=== PATIENT | male | born 1930 | race Caucasian/White ===

== ENCOUNTER 2018-03-31 15:50 | Observation (INO) | payer MEDICARE ==
[~2018-03-31] VITALS: Ht 170.2 cm; Wt 95.3 kg
--- OUTSIDE RECORDS SUMMARY | 2018-03-31 15:57 | XMS REPORT ---
Author Author [facility] Medical Staff Organization [facility] [employer] [facility] Address [address] [place], [place] [address] Phone [phone] Summary purpose TRANSITION OF CARE AUTO GENERATION Chief Complaint and Reason for Visit No authorized Reason for Visit (Admitting Diagnosis) is available for this visit. Problem list No authorized problems tracked for continuity of care are available for this visit. Encounters No authorized problems tracked for encounter diagnoses are available for this visit. Medications No medications recorded for this patient visit Allergies, adverse reactions, alerts No allergy information is available for this patient. Immunizations No immunizations recorded for this patient visit Relevant diagnostic tests and/or laboratory data RESULTS Radiology Results [id number] LUNG PERFUSION SCAN PACs Image DATE OF EXAM: 2015 [id number] PERFUSION SCAN : RADIOLOGY REPORT DATE OF SERVICE: 02/27/16 HISTORY:Elevated D-dimer; rule out pulmonary embolus, edema, shortness of breath times 1 month. NUCLEAR MEDICINE LUNG PERFUSION SCAN 1110 HOURS Utilizing 7.0 mCi of technetium 99m macro aggregated albumin, a radionuclide perfusion study was performed. Multiple images were obtained in multiple projections. No focal peripheral wedge-shaped defect or focal photopenia can be identified. No evidence of pulmonary embolus can be seen on this perfusion study. Ventilation was not performed. IMPRESSION: 1. Normal radionuclide perfusion study. 2. No evidence of pulmonary embolus. Nikhil Mckay DO WP/cdj02/27/2016 12:17:00 / 02/27/2016 12:37:55 cc:Daja Tatum APRN This document has been electronically Signed by: On: DATE OF EXAM: 2015 [id number] PERFUSION SCAN : RADIOLOGY REPORT DATE OF SERVICE: 02/27/16 HISTORY:Elevated D-dimer; rule out pulmonary embolus, edema, shortness of breath times 1 month. NUCLEAR MEDICINE LUNG PERFUSION SCAN 1110 HOURS Utilizing 7.0 mCi of technetium 99m macro aggregated albumin, a radionuclide perfusion study was performed. Multiple images were obtained in multiple projections. No focal peripheral wedge-shaped defect or focal photopenia can be identified. No evidence of pulmonary embolus can be seen on this perfusion study. Ventilation was not performed. IMPRESSION: 1. Normal radionuclide perfusion study. 2. No evidence of pulmonary embolus. Nikhil Mckay DO WP/cdj02/27/2016 12:17:00 / 02/27/2016 12:37:55 cc:Daja Tatum APRN This document has been electronically Signed by: NIKHIL MCKAY DO On: 20152:33P Result Amended on 2016-02-27 at 14:33:52. Previous status was [place]. History of procedures No procedures recorded for this patient visit. Functional status No functional or cognitive status observations are available for this visit. Vital signs No authorized vital signs are available for this visit. Social history No Social History or smoking status observations were recorded for this visit. ( Unknown if ever smoked.) Treatment Plan No treatment plan text is available for this visit. Hospital discharge instructions No discharge instruction text is available for this visit.
--- OUTSIDE RECORDS SUMMARY | 2018-03-31 15:57 | XMS REPORT ---
Author Author [facility] Organization [facility] Address [address] [place] [id number] Phone [phone] Summary purpose TRANSITION OF CARE AUTO GENERATION [...] Relevant diagnostic tests and/or laboratory data RESULTS Reference Lab ([facility]) [id number] Result Normal Range Units D-Dimer H@ 1240 0-400 ng/ml History of procedures No procedures recorded for [...]
--- OUTSIDE RECORDS SUMMARY | 2018-03-31 15:57 | XMS REPORT ---
Author Author [facility] [employer] [facility] Medical Staff Organization [facility] [employer] [facility] Address [address] [place], [place] [address] Phone [phone] Care Team Providers Care Aviation Electronic Warfare Operator Name Role Phone DEACON IRENE MD PP [phone] Summary purpose TRANSITION OF CARE AUTO GENERATION [...] tests and/or laboratory data RESULTS Radiology Results [id number] Elbow XRay - 3 View PACs Image DATE OF EXAM: Nov 14 2015 RAD [id number]-ELBOW XRAY-3 VIEW- LEFT: RADIOLOGY REPORT DATE OF SERVICE: 11/14/15 HISTORY: Left elbow nodule. LEFT ELBOW 3 VIEWS 1400 HOURS There is minimal calcification at the triceps tendon insertion. Minimal spurring is present at the cornoid process of the proximal ulna. There are some minimal intra-articular or paraarticular calcifications at the radial-humeral joint. 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 Scott Fink MD Delfina/pa11/14/2015 14:02:00 / 11/14/2015 14:47:27 cc:Dr. Rodriguez [facility] This document has been electronically Signed by: On: DATE OF EXAM: Nov 14 2015 RAD 0458-ELBOW XRAY-3 VIEW- LEFT: RADIOLOGY REPORT DATE OF SERVICE: 11/14/15 HISTORY: Left elbow nodule. LEFT ELBOW 3 VIEWS 1400 HOURS There is minimal calcification at the triceps tendon insertion. Minimal spurring is present at the cornoid process of the proximal ulna. There are some minimal intra-articular or paraarticular calcifications at the radial-humeral joint. 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 Scott Fink MD MWD/nh11/14/2015 14:02:00 / 11/14/2015 14:47:27 cc:Dr. Rodriguez [facility] This document has been electronically Signed by: SCOTT FINK MD On: Nov 14 20154:14P Result Amended on 2015-11-14 at 16:14:14. Previous status was [place]. History of procedures No procedures recorded for [...]
--- OUTSIDE RECORDS SUMMARY | 2018-03-31 15:57 | XMS REPORT ---
Author Author [facility] Medical Staff Organization [facility] Address [address] [place] [id number] Phone [phone] Summary purpose TRANSITION OF CARE AUTO GENERATION [...] and/or laboratory data RESULTS Reference Lab ([facility]out) [id number] Result Normal Range Units D-Dimer H@ 1240 0-400 ng/ml History of procedures Procedure Code Code Type Description Date Performed Performing Physician 69524 CPT-4 FIBRIN DEGRADATION, QUANT 02-26-2016 LAURYN VILLANUEVA Functional status No functional or cognitive status [...]
--- OUTSIDE RECORDS SUMMARY | 2018-03-31 15:57 | XMS REPORT ---
Author Author [facility] [employer] [facility] Medical Staff Organization [facility] [employer] [facility] Address [address] [place], [place] [address] Phone [phone] Care Team Providers Care Chemical Detection Expert Name Role Phone DEACON IRENE MD PP [phone] Summary purpose TRANSITION OF CARE AUTO GENERATION [...] tests and/or laboratory data RESULTS Radiology Results [id number] Elbow XRay - 3 View PACs Image [...] and some degenerative spurring. Scott Fink MD Delfina/md11/14/2015 14:02:00 / 11/14/2015 14:47:27 cc:Dr. Rodriguez [facility] This document has been electronically Signed [...] MD MWD/nh11/14/2015 14:02:00 / 11/14/2015 14:47:27 cc:Dr. Jr Mccabe This document has been electronically Signed by: SCOTT FINK MD On: Nov 14 20154:14P Result Amended on 2015-11-14 at 16:14:14. Previous status was [place]. History of procedures Procedure Code Code Type Description Date Performed Performing Physician 09569 CPT-4 X-RAY EXAM OF ELBOW 11-14-2015 JR BRICEÑO Functional status No functional or cognitive status [...]
--- OUTSIDE RECORDS SUMMARY | 2018-03-31 15:57 | XMS REPORT ---
Author Author Akil Martinez Organization [facility] Address [address] [place], [place] [address] Care Team Providers Care Legal Support Analyst Name Role Phone Akil Martinez PCP Unavailable Allergies and Adverse Reactions Name Reaction Notes NO KNOWN DRUG ALLERGIES Plan of Treatment Planned Activity Comments Planned Date Planned Time Plan/Goal COMPLETE CBC AUTOMATED 05/11/2014 12:00 AM METABOLIC PANEL TOTAL CA 05/11/2014 12:00 AM Medications Active Name Start Date Estimated Completion Date SIG Comments carvedilol 6.25 mg oral tablet glimepiride 1 mg oral tablet prednisone 5 mg oral tablet aspirin 325 mg oral tablet tramadol 50 mg oral tablet lutein 20 mg oral tablet Fish Oil oral Name Start Date Expiration Date SIG Comments Cipro 250 mg oral tablet 10/10/2014 10/17/2014 take 1 tablet by oral route 2 times a day for 7 days Problem List Description Status Onset UTI (urinary tract infection) Active 10/10/2014 Urinary frequency Active 10/10/2014 Slowing of Urinary Stream Active 10/10/2014 Benign Hypertrophy of Prostate (BPH) Active 10/10/2014 Idiopathic urethral stricture Active 10/10/2014 Prostate nodule Active 10/10/2014 Vital Signs Date Time BP-Sys(mm[Hg] BP-Andreea(mm[Hg]) HR(bpm) RR(rpm) Temp WT HT HC BMI BSA BMI Percentile O2 Sat(%) 11/28/2014 10:34:00 AM 200 lbs 68 in 30.41 kg/m2 2.09 m2 10/10/2014 12:53:00 PM 200 lbs 68 in 30.4096 kg/m 2.0863 m Social History Name Description Comments Alcohol Former Tobacco Former smoker History of Procedures Date Ordered Description Order Status 05/11/2014 12:00 AM ASSAY OF PSA TOTAL Reviewed 10/10/2014 12:00 AM URINE BACTERIA CULTURE Reviewed 10/10/2014 3:12 PM URINALYSIS AUTO W/SCOPE Reviewed 10/10/2014 3:12 PM URINALYSIS AUTO W/O SCOPE Reviewed 10/10/2014 3:12 PM URINALYSIS AUTO W/O SCOPE Reviewed 11/28/2014 2:47 PM URINALYSIS AUTO W/O SCOPE Reviewed Results Summary Data and Description Results 10/10/2014 3:12 PM Bilirub Ur Ql Strip -VE Glucose Ur-sCnc -VE Hgb Ur Ql Strip -VE Ketones Ur Ql Strip -VE Nitrite Ur Ql Strip -VE pH Ur-LsCnc 6.0 Prot Ur Ql Strip TRACE -1+ Sp Gr Ur Qn 1015 Urobilinogen Ur-mCnc -VE WBC Est Ur Ql Strip + + 10/24/2014 12:34 PM PSA TOTAL 1.510 ng/mL 11/28/2014 2:47 PM Bilirub Ur Ql Strip -VE Glucose Ur-sCnc -VE Hgb Ur Ql Strip - VE Ketones Ur Ql Strip -VE Nitrite Ur Ql Strip -VE pH Ur-LsCnc 6.5 Prot Ur Ql Strip -VE Sp Gr Ur Qn 1015 Urobilinogen Ur-mCnc -VE WBC Est Ur Ql Strip TRACE. History Of Immunizations Not available. History of Past Illness Name Date of Onset Comments UTI (urinary tract infection) 10/10/2014 Urinary frequency 10/10/2014 Slowing of Urinary Stream 10/10/2014 Benign Hypertrophy of Prostate (BPH) 10/10/2014 Idiopathic urethral stricture 10/10/2014 Prostate nodule 10/10/2014 Benign hypertrophy of prostate May 11 2014 11:34AM UTI (urinary tract infection) Oct 10 2014 1:43PM Recurrent Urinary Tract Infection Oct 10 2014 12:55PM Urinary Frequency Oct 10 2014 12:55PM Moderate Slowing of Urinary Stream Oct 10 2014 12:55PM Moderate Benign Hypertrophy of Prostate (BPH) Oct 10 2014 12:55PM Chronic Idiopathic urethral stricture Oct 10 2014 12:55PM Left Prostate nodule Oct 10 2014 12:55PM Resolved Urinary Frequency Oct 24 2014 2:06PM Benign Hypertrophy of Prostate (BPH) Oct 24 2014 2:06PM Benign Hypertrophy of Prostate (BPH) Nov 28 2014 10:35AM Resolved Chronic urinary tract infection Nov 28 2014 10:35AM Chronic urethral stricture Nov 28 2014 10:35AM Payers Insurance Name Company Name Plan Name Plan Number Policy Number Policy Group Number Start Date Medicare Part B Medicare [facility] [id number] N/A [id number] N/A History of Encounters Visit Date Visit Type Provider 11/28/2014 Office visit V Herman Martinez MD 10/24/2014 Office visit V Herman Martinez MD 10/10/2014 Office visit Akil Martinez MD
--- OUTSIDE RECORDS SUMMARY | 2018-03-31 15:58 | XMS REPORT ---
Author Author Tiago Burroughs [facility] Address [address] [place] [id number] Care Team Providers Care Tube Roller Name Role Phone Tiago Burroughs PCP Allergies and Adverse Reactions Name Reaction Notes NO KNOWN DRUG ALLERGIES Plan of Treatment Planned Activity Comments Planned Date Planned Time Plan/Goal CBC 05/11/2014 12:00 AM BMP 05/11/2014 12:00 AM Medications Active Name Start Date Estimated Completion Date SIG Comments carvedilol 6.25 mg oral tablet glimepiride 1 mg oral tablet prednisone 5 mg oral tablet tramadol 50 mg oral tablet lutein 20 mg oral tablet Fish Oil oral Flomax 0.4 mg oral capsule,extended release 24hr 01/19/2018 07/18/2018 take 1 capsule (0.4 mg) by oral route once daily 1/2 hour following the same meal each day for 30 days Name Start Date Expiration Date SIG Comments Cipro 250 mg oral tablet 10/10/2014 10/17/2014 take 1 tablet by oral route 2 times a day for 7 days Cipro 500 mg oral tablet 01/05/2018 01/12/2018 take 1 tablet (500 mg) by oral route every 12 hours for 7 days Discontinued Name Start Date Discontinued Date SIG Comments aspirin 325 mg oral tablet 01/05/2018 Problem List Description Status Onset UTI (urinary tract infection) Active 10/10/2014 Urinary frequency Active 10/10/2014 Slowing of Urinary Stream Active 10/10/2014 Benign Hypertrophy of Prostate (BPH) Active 10/10/2014 Idiopathic urethral stricture Active 10/10/2014 Prostate nodule Active 10/10/2014 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 Glucosuria Active 03/07/2016 Stricture of urethra Active 09/26/2016 Incontinence of urine Active 09/26/2016 Urgency of micturition Active 09/26/2016 Vital Signs Date Time BP-Sys(mm[Hg] BP-Andreea(mm[Hg]) HR(bpm) RR(rpm) Temp WT HT HC BMI BSA BMI Percentile O2 Sat(%) 01/19/2018 11:00:00 AM 138 mmHg 68 mmHg 91 bpm 20 rpm 97.9 F 67 in 96 % 01/05/2018 4:02:00 PM 130 mmHg 82 mmHg 65 bpm 16 rpm 97.7 F 220.25 lbs 67 in 34.4957 kg/m 2.1732 m 97 % 09/26/2016 9:27:00 AM 208 lbs 68 in 31.63 kg/m2 2.13 m2 03/07/2016 11:33:00 AM 216 lbs 68 in 32.8424 kg/m 2.1681 m 11/28/2014 10:34:00 AM 200 lbs 68 in 30.41 kg/m2 2.09 m2 10/10/2014 12:53:00 PM 200 lbs 68 in 30.4096 kg/m 2.0863 m Social History Name Description Comments Alcohol Former Tobacco Former smoker History of Procedures Date Ordered Description Order Status 03/07/2016 12:00 AM ASSAY OF PSA TOTAL Reviewed 03/07/2016 4:53 PM URINALYSIS AUTO W/O SCOPE Reviewed 09/26/2016 12:00 AM ASSAY OF PSA TOTAL Reviewed 09/26/2016 1:25 PM URINALYSIS AUTO W/O SCOPE Reviewed 01/19/2018 11:09 AM US URINE CAPACITY MEASURE Reviewed 01/19/2018 12:00 AM URINALYSIS AUTO W/SCOPE Returned 05/11/2014 12:00 AM ASSAY OF PSA TOTAL Reviewed 10/10/2014 12:00 AM URINE BACTERIA CULTURE Reviewed 10/10/2014 3:12 PM URINALYSIS AUTO W/SCOPE Reviewed 10/10/2014 3:12 PM URINALYSIS AUTO W/O SCOPE Reviewed 10/10/2014 3:12 PM URINALYSIS AUTO W/O SCOPE Reviewed 11/28/2014 2:47 PM URINALYSIS AUTO W/O SCOPE Reviewed Results Summary Date and Description Results 10/10/2014 3:12 PM Bilirub [...] -VE WBC Est Ur Ql Strip TRACE. 03/07/2016 1:10 PM PSA TOTAL 0.750 ng/mL 03/07/2016 4:53 PM Clarity Ur CLEAR Color Ur Glucose Ur-sCnc +++ + Bilirub Ur Ql Strip -VE Ketones Ur Ql Strip -VE Sp Gr Ur Qn 1015 Hgb Ur Ql Strip -VE pH Ur-LsCnc 6.0 Prot Ur Ql Strip -VE Urobilinogen Ur-mCnc -VE Nitrite Ur Ql Strip -VE WBC Est Ur Ql Strip -VE 09/26/2016 10:40 AM PSA TOTAL 0.650 ng/mL 09/26/2016 1:25 PM Clarity Ur CLEAR Color Ur ---- Glucose Ur-sCnc -VE Bilirub Ur Ql Strip -VE Ketones Ur Ql Strip -VE Sp Gr Ur Qn 1015 Hgb Ur Ql Strip -VE pH Ur-LsCnc 6.0 Prot Ur Ql Strip + Urobilinogen Ur-mCnc -VE Nitrite Ur Ql Strip - VE WBC Est Ur Ql Strip -VE 01/19/2018 11:09 AM Residual Urine 107.0 mL History Of Immunizations Not available. History of Past Illness Name Date of Onset Comments UTI (urinary tract infection) 10/10/2014 Urinary frequency 10/10/2014 Slowing of Urinary Stream 10/10/2014 Benign Hypertrophy of Prostate (BPH) 10/10/2014 Idiopathic urethral stricture 10/10/2014 Prostate nodule 10/10/2014 Adenofibromatous hypertrophy of prostate 03/07/2016 Acquired bladder neck obstruction 03/07/2016 Post-traumatic bulbous urethral stricture 03/07/2016 Glucosuria 03/07/2016 Stricture of urethra 09/26/2016 Incontinence of urine 09/26/2016 Urgency of micturition 09/26/2016 Benign hypertrophy of prostate May 11 2014 [...] Chronic urethral stricture Nov 28 2014 10:35AM BPH (benign prostatic hypertrophy) Mar 07 2016 12:02PM Prostate nodule Mar 07 2016 12:02PM Urinary frequency Mar 07 2016 12:02PM Adenofibromatous hypertrophy of prostate Mar 07 2016 11:34AM Acquired bladder neck obstruction Mar 07 2016 11:34AM Post-traumatic bulbous urethral stricture Mar 07 2016 11:34AM Glucosuria Mar 07 2016 11:34AM Prostatic nodule Sep 26 2016 9:50AM BPH (benign prostatic hypertrophy) Sep 26 2016 9:50AM Screening for prostate cancer Sep 26 2016 9:50AM Urgency of micturition Sep 26 2016 9:27AM Incontinence of urine Sep 26 2016 9:27AM Stricture of urethra Sep 26 2016 9:27AM Adenofibromatous hypertrophy of prostate Sep 26 2016 9:27AM UTI (urinary tract infection) Jan 05 2018 4:04PM Urinary Frequency Jan 19 2018 11:09AM Urinary Incontinence Jan 19 2018 11:09AM Stricture of urethra Jan 19 2018 11:09AM Payers Insurance Name Company Name Plan Name Plan Number Policy Number Policy Group Number Start Date Medicare Part B Medicare Of [place] [id number] N/A [facility] [id number] N/A History of Encounters Visit Date Visit Type Provider 01/19/2018 Procedures Tiago Burroughs MD 01/05/2018 Office visit Tiago Burroughs MD 09/26/2016 Office visit V Herman Martinez MD 03/07/2016 Office visit Akil Martinez MD 11/28/2014 Office visit V Herman Martinez MD 10/24/2014 Office visit V Herman Martinez MD 10/10/2014 Office visit V Cesar. Juan MD
--- OUTSIDE RECORDS SUMMARY | 2018-03-31 15:58 | XMS REPORT ---
Author Author Akil Martinez [facility] Address [address] [place], [place] [id number] Care Team Providers Care Cardiac/Vascular Sonographer Name Role Phone Akil Martinez PCP Unavailable Allergies and Adverse Reactions Name Reaction Notes NO KNOWN DRUG ALLERGIES Plan of Treatment Planned Activity Comments Planned Date Planned Time Plan/Goal PSA TOTAL 09/26/2016 12:00 AM CBC 05/11/2014 12:00 AM BMP 05/11/2014 12:00 [...] urethral stricture Active 03/07/2016 Glucosuria Active 03/07/2016 Vital Signs Date Time BP-Sys(mm[Hg] BP-Andreea(mm[Hg]) HR(bpm) RR(rpm) Temp WT HT HC BMI BSA BMI Percentile O2 Sat(%) 09/26/2016 9:27:00 AM 208 lbs 68 in 31.63 kg/m2 2.13 m2 03/07/2016 11:33:00 AM 216 lbs 68 in 32.8424 kg/m 2.1681 m 11/28/2014 10:34:00 AM 200 lbs 68 in 30.41 kg/m2 2.09 m2 10/10/2014 12:53:00 PM 200 lbs 68 in 30.41 kg/m2 2.0863 m Social History Name Description Comments Alcohol Former Tobacco Former smoker History of Procedures Date Ordered Description Order Status 03/07/2016 12:00 AM ASSAY OF PSA TOTAL Reviewed 03/07/2016 4:53 PM URINALYSIS AUTO W/O SCOPE Reviewed 05/11/2014 12:00 AM ASSAY OF PSA TOTAL [...] -VE WBC Est Ur Ql Strip -VE History Of Immunizations Not available. History of Past Illness Name Date of Onset Comments UTI (urinary tract infection) 10/10/2014 Urinary frequency 10/10/2014 Slowing of Urinary Stream 10/10/2014 Benign Hypertrophy of Prostate (BPH) 10/10/2014 Idiopathic urethral stricture 10/10/2014 Prostate nodule 10/10/2014 Adenofibromatous hypertrophy of prostate 03/07/2016 Acquired bladder neck obstruction 03/07/2016 Post-traumatic bulbous urethral stricture 03/07/2016 Glucosuria 03/07/2016 Benign hypertrophy of prostate May 11 2014 [...] for prostate cancer Sep 26 2016 9:50AM Payers Insurance Name Company Name Plan Name Plan Number Policy Number Policy Group Number Start Date Medicare Part B Medicare [facility] [id number] N/A BCBS [employer] [id number] N/A History of Encounters Visit Date Visit Type Provider 09/26/2016 Office visit V Herman Martinez MD 03/07/2016 Office visit Akil Martinez MD 11/28/2014 Office visit V Herman Martinez MD 10/24/2014 Office visit Akil Martinez MD 10/10/2014 Office visit Akil Martinez MD
--- OUTSIDE RECORDS SUMMARY | 2018-03-31 15:58 | XMS REPORT ---
Author Author Tiago Burroughs [facility] Address [address] [place] [id number] Care Team Providers Care Vascular Surgeon Name Role Phone Tiago Burroughs PCP Allergies [...] 20 mg oral tablet Fish Oil oral Cipro 500 mg oral tablet 01/05/2018 01/12/2018 take 1 tablet (500 mg) by oral route every 12 hours for 7 days Name Start Date Expiration Date SIG Comments Cipro 250 mg oral tablet 10/10/2014 10/17/2014 take 1 tablet by oral route 2 times a day for 7 days Discontinued Name Start Date [...] HC BMI BSA BMI Percentile O2 Sat(%) 01/05/2018 4:02:00 PM 130 mmHg 82 mmHg [...] 1:25 PM URINALYSIS AUTO W/O SCOPE Reviewed 05/11/2014 [...] VE WBC Est Ur Ql Strip -VE History [...] (urinary tract infection) Jan 05 2018 4:04PM Payers Insurance Name Company Name Plan Name Plan Number Policy Number Policy Group Number Start Date Medicare Part B Medicare Of [place] [id number] N/A [facility] [id number] N/A History of Encounters Visit Date Visit Type Provider 01/05/2018 Office visit Tiago Burroughs MD 09/26/2016 Office visit Akil Martinez MD 03/07/2016 Office visit Akil Martinez MD 11/28/2014 Office visit Akil Martinez MD 10/24/2014 Office visit Akil Martinez MD 10/10/2014 Office visit Akil Martinez MD
--- OUTSIDE RECORDS SUMMARY | 2018-03-31 15:58 | XMS REPORT ---
Author Author Akil Martinez Organization [facility] Address [address] [place], [place] [id number] Care Team Providers Care Garment Manufacturing Supervisor Name Role Phone Akil Martinez PCP Unavailable Allergies and Adverse Reactions Name Reaction Notes NO KNOWN DRUG ALLERGIES Plan of Treatment Planned Activity Comments Planned Date Planned Time Plan/Goal ASSAY OF PSA TOTAL 03/07/2016 12:00 AM COMPLETE CBC AUTOMATED 05/11/2014 12:00 AM METABOLIC [...] HC BMI BSA BMI Percentile O2 Sat(%) 03/07/2016 11:33:00 AM 216 lbs 68 in 32.84 kg/m2 2.17 m2 11/28/2014 10:34:00 AM 200 lbs 68 in 30.4096 kg/m 2.0863 m 10/10/2014 12:53:00 PM 200 lbs 68 in 30.41 kg/m2 2.09 m2 Social History Name Description Comments Alcohol Former Tobacco Former smoker History of Procedures Date Ordered Description Order Status 03/07/2016 4:53 PM URINALYSIS AUTO W/O SCOPE [...] WBC Est Ur Ql Strip TRACE. 03/07/2016 4:53 PM Clarity Ur CLEAR Color [...] 2016 11:34AM Glucosuria Mar 07 2016 11:34AM Payers Insurance Name Company Name Plan Name Plan Number Policy Number Policy Group Number Start Date Medicare Part B Medicare Of [place] [id number] N/A BCBS [facility] [id number] N/A History of Encounters Visit Date Visit Type Provider 03/07/2016 Office visit V Herman Martinez MD 11/28/2014 Office visit V Herman Martinez MD 10/24/2014 Office visit V Herman Martinez MD 10/10/2014 Office visit V Herman Martinez MD
--- OUTSIDE RECORDS SUMMARY | 2018-03-31 15:59 | XMS REPORT ---
Author Author SOREN GOSS [facility] eClinicalWorks Address Unknown Phone Unavailable Care Team Providers Care Still Operator Whiskey Name Role Phone SOREN GOSS CP Unavailable Allergies, Adverse Reactions, Alerts Substance Reaction Event Type Sulfacetamide Sodium Info Not Available Drug Allergy Problems Problem Type Condition Code Onset Dates Condition Status Assessment Dental examination Z01.20 Active Problem Dental examination V72.2 Active Medications Medication Code System Code Instructions Start Date End Date Status Dosage Tramadol HCl [facility] [place] [address]-61 50 MG Orally 1 tablet as needed Lisinopril [facility] [place] [address]-15 10 MG Orally Once a day 1 tablet Prednisone [facility] [place] 0 5 MG Oral Every Other Day 1 Tablet Aspirin [facility] [place] [address]-84 325 mg April 06, 2014 take 1 tablet (325 mg) by oral route once daily Carvedilol [facility] [place] [address]-83 6.25 MG Orally 2 Tablets Glimepiride [facility] [place] [address]-11 1 MG Orally Once a day not defined Procedures Procedure Coding System Code Date Dental no charge CPT-4 D0099 Jun 19, 2016 Results No Known Results Summary Purpose eClinicalWorks Submission
--- OUTSIDE RECORDS SUMMARY | 2018-03-31 15:59 | XMS REPORT ---
Author Author Akil Martinez Organization [facility] Address [address] [place], [place] [id number] Care Team Providers Care Resource Teacher Name Role Phone Akil Martinez PCP Unavailable [...] PM URINALYSIS AUTO W/O SCOPE Reviewed 09/26/2016 1:25 PM URINALYSIS AUTO W/O [...] WBC Est Ur Ql Strip -VE 09/26/2016 1:25 PM Clarity Ur CLEAR Color [...] hypertrophy of prostate Sep 26 2016 9:27AM Payers Insurance Name Company Name Plan Name Plan Number Policy Number Policy Group Number Start Date Medicare Part B Medicare [place] [id number] N/A [facility] [id number] N/A History of Encounters Visit Date Visit Type Provider 09/26/2016 Office visit V Herman Martinez MD 03/07/2016 Office visit V Herman Martinez MD 11/28/2014 Office visit V Herman Martinez MD 10/24/2014 Office visit V Herman Martinez MD 10/10/2014 Office visit V Herman Martinez MD
--- OUTSIDE RECORDS SUMMARY | 2018-03-31 15:59 | XMS REPORT ---
Author Author [facility]CHARIAH BALDERAS [facility] [place] Address [address] [place] [address] Care Team Providers Care Superintendent Meter Tests Name Role Phone ZECHARIAH BALDERAS Unavailable PROBLEMS Type Condition ICD9-CM Code [id number] Code Onset Dates Condition Status SNOMED Code Problem Dental examination V72.2 Active [id number] ALLERGIES No Known Allergies SOCIAL HISTORY No smoking Hx information available PLAN OF CARE VITAL SIGNS MEDICATIONS No Known Medications RESULTS No Results PROCEDURES No Known procedures IMMUNIZATIONS No Known Immunizations
--- OUTSIDE RECORDS SUMMARY | 2018-03-31 15:59 | XMS REPORT ---
Author Author SOREN GOSS [facility] eClinicalWorks Address Unknown Phone Unavailable Care Team Providers Care Wildlife Officer Name Role Phone SROEN GOSS CP Unavailable Allergies, Adverse Reactions, Alerts Substance Reaction Event Type N.K.D.A. Info Not Available Non Drug Allergy Problems Problem Type Condition Code Onset Dates Condition Status Assessment Dental examination Z01.20 Active Problem Dental examination V72.2 Active Medications No Known Medications Procedures Procedure Coding System Code Date Dental no charge CPT-4 D0099 Sep 07, 2015 Vital Signs Date/Time: Sep 07, 2015 Blood Pressure Diastolic 88 mmHg Blood Pressure Systolic 147 mmHg Results No Known Results Summary Purpose eClinicalWorks Submission
--- OUTSIDE RECORDS SUMMARY | 2018-03-31 15:59 | XMS REPORT ---
Author Author SOREN GOSS [facility] eClinicalWorks Address Unknown Phone Unavailable Care Team Providers Care Hydroelectric Operator Name Role Phone SOREN GOSS CP Unavailable Allergies, Adverse Reactions, Alerts Substance Reaction Event Type N.K.D.A. Info Not Available Non Drug Allergy Problems Problem Type Condition Code Onset Dates Condition Status Assessment Dental examination Z01.20 Active Problem Dental examination V72.2 Active Medications Medication Code System Code Instructions Start Date End Date Status Dosage Lisinopril [facility] [address]-27 10 MG Orally Once a day 1 tablet Glimepiride [facility] [address]-01 1 MG Orally Once a day not defined Tramadol HCl [facility] [address]-76 50 MG Orally 1 tablet as needed Prednisone NDC 0 5 MG Oral Every Other Day 1 Tablet Carvedilol [facility] [address]-21 6.25 MG Orally 2 Tablets Procedures Procedure Coding System Code Date INTRAORL-PERIAPICAL 1 FILM [id number] CPT-4 D0220 Jul 13, 2015 RESIN COMPOS - 1 SURFACE POSTERIOR CPT-4 D2391 Jul 13, 2015 LTD ORAL EVALUATION - PROBLEM FOCUS CPT-4 D0140 Jul 13, 2015 Vital Signs Date/Time: Jul 13, 2015 Blood Pressure Diastolic 80 mmHg Blood Pressure Systolic 149 mmHg Results No Known Results Summary Purpose eClinicalWorks Submission
--- OUTSIDE RECORDS SUMMARY | 2018-03-31 15:59 | XMS REPORT ---
Author Author Z[facility]CHARIAH BALDERAS [facility] Address [address] [place] [address] Care Team Providers Care Counter Helper Name Role Phone ZECHARIAH BALDERAS Unavailable PROBLEMS Type Condition ICD9-CM Code [id number]-TR Code Onset Dates Condition Status SNOMED Code Problem Dental examination V72.2 Active [id number] ALLERGIES No Known Allergies SOCIAL HISTORY No smoking Hx information available PLAN OF CARE VITAL SIGNS MEDICATIONS No Known Medications RESULTS No Results PROCEDURES No Known procedures IMMUNIZATIONS No Known Immunizations
[2018-03-31] MEDS ORDERED: ASPIRIN 81 MG CHEW (CHILDREN'S ASA) PO ONE (16:00)
[2018-03-31] MEDS ORDERED: NITROGLYCERIN 0.4 MG SL TABS BTL 25'S SL ONE (16:00)
--- OUTSIDE RECORDS SUMMARY | 2018-03-31 16:00 | XMS REPORT ---
Author Author ZECHARIAH BALDERAS [facility] eClinicalWorks Address Unknown Phone Unavailable Care Team Providers Care Finance And Administration Manager Name Role Phone ZECHARIAH BALDERAS CP Unavailable Allergies, Adverse Reactions, Alerts Substance Reaction Event Type N.K.D.A. Info Not Available Non Drug Allergy Problems Problem Type Condition Code Onset Dates Condition Status Assessment Dental examination Z01.20 Active Problem Dental examination V72.2 Active Medications No Known Medications Procedures Procedure Coding System Code Date No Charge CPT-4 42234 Aug 07, 2015 Results No Known Results Summary Purpose eClinicalWorks Submission
--- OUTSIDE RECORDS SUMMARY | 2018-03-31 16:00 | XMS REPORT ---
Author Author SOREN GOSS [facility] eClinicalWorks Address Unknown Phone Unavailable Care Team Providers Care Advertising Account Executive Name Role Phone SOREN GOSS CP Unavailable Allergies, Adverse Reactions, Alerts Substance Reaction Event Type N.K.D.A. Info Not Available Non Drug Allergy Problems Problem Type Condition Code Onset Dates Condition Status Assessment Dental examination Z01.20 Active Problem Dental examination V72.2 Active Medications Medication Code System Code Instructions Start Date End Date Status Dosage Prednisone NDC 0 5 MG Oral Every Other Day 1 Tablet Aspirin [facility] [address]-55 325 mg April 06, 2014 take 1 tablet (325 mg) by oral route once daily Glimepiride [facility] [address]-60 1 MG Orally Once a day not defined Carvedilol [facility] [address]-64 6.25 MG Orally 2 Tablets Tramadol HCl [facility] [address]-49 50 MG Orally 1 tablet as needed Lisinopril [facility] [address]-72 10 MG Orally Once a day 1 tablet Procedures Procedure Coding System Code Date RECEMENT CROWN CPT-4 D2920 Aug 02, 2015 LTD ORAL EVALUATION - PROBLEM FOCUS CPT-4 D0140 Aug 02, 2015 Vital Signs Date/Time: Aug 02, 2015 Blood Pressure Diastolic 60 mmHg Blood Pressure Systolic 127 mmHg Results No Known Results Summary Purpose eClinicalWorks Submission
--- OUTSIDE RECORDS SUMMARY | 2018-03-31 16:01 | XMS REPORT | Clinical Summary ---
Author Author Admin, E Organization [facility] Address Unknown Phone Unavailable Allergies, Adverse Reactions, Alerts Allergy Name Reaction Description Start Date Severity Status Provider No Known Allergies Dollyshira Wong MATTHEWA Conditions or Problems Problem Name Problem Code Onset Date Status Entry Date Provider Comment Standard Description Annotate DIABETES, TYPE 2 250.00 Inactive Simon Castillo MD Diabetes mellitus without mention of complication, type II or unspecified type, not stated as uncontrolled Diabetes mellitus, type II, controlled 250.00 Active Simon Castillo MD Diabetes mellitus without mention of complication, type II or unspecified type, not stated as uncontrolled Hypertension 401.9 Inactive Simon Castillo MD Unspecified essential hypertension Hypertension, benign essential, controlled 401.1 Active Simon Castillo MD Benign essential hypertension FH DIABETES V18.0 Resolved Simon Castillo MD Family history of diabetes mellitus FH LUNG CANCER V16.1 Resolved Simon Castillo MD Family history of malignant neoplasm of trachea, bronchus, and lung ABDOMINAL TENDERNESS 789.60 Resolved Simon Castillo MD Abdominal tenderness, unspecified site CHEST WALL PAIN, HX OF V15.89 Resolved Simon Castillo MD Other specified personal history presenting hazards to health SEBORRHEIC KERATOSIS 702.19 Resolved Simon Castillo MD Other seborrheic keratosis BRONCHITIS, ACUTE 466.0 Resolved Simon Castillo MD Acute bronchitis Health screening V70.0 Active Simon Castillo MD Routine general medical examination at a health care facility SINUSITIS, ACUTE 461.9 Resolved Simon Castillo MD Acute sinusitis, unspecified CHRONIC KIDNEY DISEASE UNSPECIFIED 585.9 Inactive Simon Castillo MD Chronic kidney disease, unspecified Chronic kidney disease stage III 585.3 Active Simon Castillo MD Chronic kidney disease, Stage III (moderate) ABDOMINAL PAIN RIGHT LOWER QUADRANT 789.03 Resolved Simon Castillo MD Abdominal pain, right lower quadrant SCIATICA 724.3 Resolved Simon Castillo MD Sciatica BENIGN PROSTATIC HYPERTROPHY, MILD, HX OF V13.89 Resolved 10/14 Simon Castillo MD Personal history of other specified diseases Obesity 278.00 Resolved Simon Castillo MD Obesity, unspecified Allergic rhinitis 477.9 Active Simon Castillo MD Allergic rhinitis, cause unspecified Actinic keratosis 702.0 Resolved Simon Castillo MD Actinic keratosis Chest pain 786.50 Resolved Simon Castillo MD Unspecified chest pain Cough 786.2 Resolved Simon Castillo MD Cough Osteoarthritis 715.90 Active Simon Castillo MD Osteoarthrosis, unspecified whether generalized or localized, involving unspecified site Eczema 692.9 Resolved Simon Castillo MD Contact dermatitis and other eczema, unspecified cause Benign prostatic hypertrophy 600.00 Active Simon Castillo MD Hypertrophy (benign) of prostate without urinary obstruction and other lower urinary tract (LUTS) Bronchitis, acute 466.0 Resolved Simon Castillo MD Acute bronchitis Tinea pedis 110.4 Resolved Simon Castillo MD Dermatophytosis of foot Hand pain, bilateral 729.5 Resolved Simon Castilol MD Pain in limb Rheumatoid arthritis 714.0 Active Simon Castillo MD Rheumatoid arthritis Steroid use, nursing home V58.65 Resolved Simon Castillo MD Long-term (current) use of steroids Hand pain, bilateral 729.5 Resolved Simon Castillo MD Pain in limb Carpal tunnel syndrome, bilateral 354.0 Active Simon Castillo MD Carpal tunnel syndrome Osteopenia 733.90 Active Simon Castillo MD Disorder of bone and cartilage, unspecified 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 Resolved Simon Castillo MD Rheumatoid arthritis Pharyngitis 462 Resolved Simon Castillo MD Acute pharyngitis Dyspnea 786.09 Resolved Simon Castillo MD Other dyspnea and respiratory abnormality Peripheral edema 782.3 Resolved Simon Castillo MD Edema 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 Simon Castillo MD Other specified erythematous conditions Pneumonia, right lower lobe 486 Resolved Simon Castillo MD Pneumonia, organism unspecified Leg edema, bilateral 782.3 Active Simon Castillo MD Edema Macular degeneration 362.50 Active Giles Tatum APRN Macular degeneration (senile) of retina, unspecified Wellness exam V70.0 Active Giles Tatum APRN Routine general medical examination at a health care facility Sinusitis, acute 461.9 Active Simon Castillo MD Acute sinusitis, unspecified Dyspnea 786.09 Active Simon Castillo MD Other dyspnea and respiratory abnormality DIABETES ICD-V18.0 Inactive Simon Castillo MD FH LUNG CANCER ICD-V16.1 Inactive Simon Castillo MD ABDOMINAL TENDERNESS ICD-789.60 Inactive Simon Castillo MD CHEST WALL PAIN, HX OF ICD-V15.89 Inactive Simon Castillo MD SEBORRHEIC KERATOSIS ICD-702.19 Inactive Simon Castillo MD BRONCHITIS, ACUTE ICD-466.0 Inactive Simon Castillo MD SINUSITIS, ACUTE ICD-461.9 Inactive Simon Castillo MD ABDOMINAL PAIN RIGHT LOWER QUADRANT ICD-789.03 Inactive Simon Castillo MD SCIATICA ICD-724.3 Inactive Simon Castillo MD 2012 BENIGN PROSTATIC HYPERTROPHY, MILD, HX OF ICD-V13.89 Inactive Simon Castillo MD Obesity ICD-278.00 Inactive Simon Castillo MD 2013 Actinic keratosis ICD-702.0 Inactive Simon Castillo MD Chest pain ICD-786.50 Inactive Simon Castillo MD Cough ICD-786.2 Inactive Simon Castillo MD Eczema ICD-692.9 Kerry Castillo MD 02/27 Bronchitis, acute ICD-466.0 Kerry Castillo MD Tinea pedis ICD-110.4 Kerry Castillo MD Hand pain, bilateral ICD-729.5 Kerry Castillo MD 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, 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 Kerry Castillo MD Hand pain, bilateral ICD-729.5 Inactive Simon Castillo MD 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 Inactive Simon Castillo MD Pharyngitis ICD-462 Inactive Simon Castillo MD Dyspnea ICD-786.09 Inactive Simon Castillo MD 2016 Peripheral edema ICD-782.3 Inactive Simon Castillo MD Pneumonia, right lower lobe ICD-486 Inactive Simon Castillo MD Medication List Medication Instructions Start Date Stop Date Generic Name NDC Status Provider Patient Instruction BUMETANIDE 0.5 MG ORAL TABS 1 po qd BUMETANIDE 39420727206 Active Simon Castillo MD Active AUGMENTIN 875-125 MG ORAL TABS 1 po BID x 10 days AMOXICILLIN-POT CLAVULANATE 53327565575 Active Simon Castillo MD Active PIOGLITAZONE HCL 30 MG ORAL TABS 1 po qd PIOGLITAZONE HCL 70300974867 Active Simon Castillo MD Active GLIMEPIRIDE 4 MG ORAL TABS 1 po BID GLIMEPIRIDE 47303311898 Active Simon Castillo MD Active ASPIRIN EC 81 MG ORAL TBEC 1 po qd ASPIRIN 86198942418 Active Simon Castillo MD Active CLOTRIMAZOLE 1 % EXT CREA Apply to affected area of feet twice daily PRN Rash CLOTRIMAZOLE 63919226629 No Longer Active Simon Castillo MD Active PREDNISONE 5 MG TAB 1 po BID PREDNISONE 02298418137 Active Simon Castillo MD Active FISH OIL 1000 MG CPDR 1 po BID OMEGA-3 FATTY ACIDS 01556359318 Active Simon Castillo MD Active LISINOPRIL 10 MG TABS 1 p qd LISINOPRIL 07820213563 Active Simon Castillo MD Active CLARITIN 10 MG TAB 1 tablet by mouth daily as needed for allergies LORATADINE 43413568345 No Longer Active Simon Castillo MD Active TRIAMCINOLONE ACETONIDE 0.1 % OINT Apply to affected areas TID for up to 2 weeks TRIAMCINOLONE ACETONIDE 01171260202 No Longer Active Simon Castillo MD Active LASIX 20 MG TAB 1 tablet by mouth daily x 2 days FUROSEMIDE 83380301520 No Longer Active Simon Castillo MD Active SULFASALAZINE 500 MG ORAL TBEC 2 tabs BID SULFASALAZINE 05335980951 No Longer Active Neto Oshea DO Active PREDNISONE 20 MG TAB 2 tabs daily for 3 days, 1 tab daily for 3 days, 1/2 tab daily for 2 days PREDNISONE 72547115080 No Longer Active 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 [employer] Active PREDNISONE 20 MG TAB 1 tablet daily for airway inflammation 02/25 PREDNISONE 21547407717 No Longer Active 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 [employer] Active AZITHROMYCIN 250 MG TABS 2 po qd x 1 day, then 1 po qd x 4 days AZITHROMYCIN 13653402645 No Longer Active 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 [employer] Active HYDROCODONE-ACETAMINOPHEN 5-325 MG TABS 1 tab by mouth 8 hours as needed for pain HYDROCODONE-ACETAMINOPHEN 58629281933 Active Simon Castillo MD Active TRAMADOL HCL 50 MG TABS 1 po q6hr PRN Pain TRAMADOL HCL 64908782900 No Longer Active Simon Castillo MD Active PREDNISONE 5 MG TABS 1 po qod PREDNISONE 60391216612 No Longer Active Simon Castillo MD Active SYMBICORT 160-4.5 MCG/ACT AERO 2 puff BID BUDESONIDE- FORMOTEROL FUMARATE 35130357075 No Longer Active Simon Castillo MD Active FLONASE 50 MCG/ACT SUSP 2 puffs in each nostril daily FLUTICASONE PROPIONATE 23442648991 No Longer Active Simon Castillo MD Active PREDNISONE 20 MG TAB 2 tabs daily for 5 days, then 1 daily for 5 days PREDNISONE 96537278414 No Longer Active Simon Castillo MD Active PREDNISONE 20 MG TAB 2 tabs daily for 5 days, then 1 daily for 5 days, then 0.5 for 4 days PREDNISONE 29031809521 No Longer Active Simon Castillo MD Active PREDNISONE 20 MG TAB 2 tabs daily for 3 days, 1 tab daily for 3 days, 1/2 tab daily for 2 days PREDNISONE 24997783007 No Longer Active Simon Castillo MD Active AZITHROMYCIN 250 MG TABS 2 po qd x 1 day, then 1 po qd x 4 days AZITHROMYCIN 49831385949 No Longer Active Simon Castillo MD Active CARVEDILOL 6.25 MG TABS 1 po BID CARVEDILOL 48878994245 Active Simon Castillo MD Active LISINOPRIL-HYDROCHLOROTHIAZIDE 20-12.5 MG TABS 1/2 tab by mouth daily LISINOPRIL-HYDROCHLOROTHIAZIDE 70837157199 No Longer Active Simon Castillo MD Active TRAMADOL HCL 50 MG TABS 1-2 tablets every 6 hours as needed for pain TRAMADOL HCL 06367665259 Active Giles Tatum APRN Active PREDNISONE 5 MG TAB Take one po qod PREDNISONE 16422425224 No Longer Active Simon Castillo MD Active GLYBURIDE 5 MG TAB Take one by mouth daily GLYBURIDE 27943810482 No Longer Active Simon Castillo MD Active LEVAQUIN 750 MG TABS 1 po qod x 5 doses LEVOFLOXACIN 26055253330 No Longer Active Simon Castillo MD Active CETIRIZINE HCL 10 MG TABS 1 po qd as needed for allergies CETIRIZINE HCL 23070205679 No Longer Active Simon Castillo MD Active BILBERRY CAPS 1 tab daily BILBERRY (VACCINIUM MYRTILLUS) CAPS 96417956690 Active Simon Castillo MD Active ATENOLOL 50 MG TABS Take one by mouth daily ATENOLOL 33171515960 No Longer Active Simon Castillo MD Active FLONASE 50 MCG/ACT SUSP 2 puffs in each nostril daily FLUTICASONE PROPIONATE 22513895122 No Longer Active Simon Castillo MD Active GLYBURIDE 5 MG TAB Take one by mouth daily GLYBURIDE 57481308393 No Longer Active Simon Castillo MD Active SYMBICORT 80-4.5 MCG/ACT AERO 2 puffs twice a day BUDESONIDE-FORMOTEROL FUMARATE 24707986312 No Longer Active Simon Castillo MD Active PREDNISONE 20 MG TAB 2 tabs daily for 4 days, 1 tab daily for 4 days, 1/2 tab daily for 4 days PREDNISONE 02851285265 No Longer Active Simon Castillo MD Active AMOXICILLIN 500 MG CAPS 2 po BID x 10 days AMOXICILLIN 38244248636 No Longer Active Simon Castillo MD Active METFORMIN HCL 1000 MG TABS 1 by mounth twice a day METFORMIN HCL 17895523230 No Longer Active Simon Castillo MD Active LUTEIN-ZEAXANTHIN 6-1 MG TABS Take 2 by mouth daily LUTEIN-ZEAXANTHIN 77359096492 Active Simon Castillo MD Active IBUPROFEN 800 MG TABS Take 1 tab every 6 hrs prn IBUPROFEN 26301971292 No Longer Active Simon Castillo MD Active GLYBURIDE 2.5 MG TABS Take one by mouth daily GLYBURIDE 96907573568 No Longer Active Simon Castillo MD Active LANCETS MISC 2 qd LANCETS 82602888755 Active Pamela Conde Active ACACIA CONTOUR TEST STRP Use with testing twice daily GLUCOSE BLOOD 82540428335 Active Simon Castillo MD Active GLYBURIDE 2.5 MG TABS Take one by mouth daily GLYBURIDE 2.5 MG TABS 629250 GLYBURIDE Inactive PREDNISONE 20 MG TAB 2 tabs daily for 4 days, 1 tab daily for 4 days, 1/2 tab daily for 4 days PREDNISONE 20 MG TAB 279391 PREDNISONE Inactive SYMBICORT 80-4.5 MCG/ACT AERO 2 puffs twice a day SYMBICORT 80-4.5 MCG/ACT AERO BUDESONIDE-FORMOTEROL FUMARATE Inactive FLONASE 50 MCG/ACT SUSP 2 puffs in each nostril daily FLONASE 50 MCG/ACT SUSP 3126583 FLUTICASONE PROPIONATE Inactive ATENOLOL 50 MG TABS Take one by mouth daily ATENOLOL 50 MG TABS 753547 ATENOLOL Inactive CETIRIZINE HCL 10 MG TABS 1 po qd as needed for allergies CETIRIZINE HCL 10 MG TABS 9915346 CETIRIZINE HCL Inactive LEVAQUIN 750 MG TABS 1 po qod x 5 doses LEVAQUIN 750 MG TABS 675392 LEVOFLOXACIN Inactive GLYBURIDE 5 MG TAB Take one by mouth daily GLYBURIDE 5 MG TAB 881811 GLYBURIDE Inactive PREDNISONE 5 MG TAB Take one po qod PREDNISONE 5 MG TAB 154069 PREDNISONE Inactive PREDNISONE 20 MG TAB 2 tabs daily for 5 days, then 1 daily for 5 days PREDNISONE 20 MG TAB 908029 PREDNISONE Inactive FLONASE 50 MCG/ACT SUSP 2 puffs in each nostril daily FLONASE 50 MCG/ACT SUSP 5948744 FLUTICASONE PROPIONATE Inactive SYMBICORT 160-4.5 MCG/ACT AERO 2 puff BID SYMBICORT 160-4.5 MCG/ACT AERO BUDESONIDE-FORMOTEROL FUMARATE Inactive PREDNISONE 5 MG TABS 1 po qod PREDNISONE 5 MG TABS 363125 PREDNISONE Inactive PREDNISONE 20 MG TAB 1 tablet daily for airway inflammation 02/25 PREDNISONE 20 MG TAB 366854 PREDNISONE Inactive SULFASALAZINE 500 MG ORAL TBEC 2 tabs BID SULFASALAZINE 500 MG ORAL [facility] 850209 SULFASALAZINE Inactive LASIX 20 MG TAB 1 tablet by mouth daily x 2 days LASIX 20 MG TAB 746785 FUROSEMIDE Inactive CLARITIN 10 MG TAB 1 tablet by mouth daily as needed for allergies CLARITIN 10 MG TAB 741012 LORATADINE Inactive CLOTRIMAZOLE 1 % EXT CREA Apply to affected area of feet twice daily PRN Rash CLOTRIMAZOLE 1 % EXT CREA 363501 CLOTRIMAZOLE Inactive AMOXICILLIN 500 MG CAPS 2 po BID x 10 days AMOXICILLIN 500 MG CAPS 404659 AMOXICILLIN Inactive GLYBURIDE 5 MG TAB Take one by mouth daily GLYBURIDE 5 MG TAB 678107 GLYBURIDE Inactive AZITHROMYCIN 250 MG TABS 2 po qd x 1 day, then 1 po qd x 4 days AZITHROMYCIN 250 MG TABS 3421177 AZITHROMYCIN Inactive PREDNISONE 20 MG TAB 2 tabs daily for 3 days, 1 tab daily for 3 days, 1/2 tab daily for 2 days PREDNISONE 20 MG TAB 156722 PREDNISONE Inactive PREDNISONE 20 MG TAB 2 tabs daily for 5 days, then 1 daily for 5 days, then 0.5 for 4 days PREDNISONE 20 MG TAB 939841 PREDNISONE Inactive AZITHROMYCIN 250 MG TABS 2 po qd x 1 day, then 1 po qd x 4 days AZITHROMYCIN 250 MG TABS 9632946 AZITHROMYCIN Inactive PREDNISONE 20 MG TAB 2 tabs daily for 3 days, 1 tab daily for 3 days, 1/2 tab daily for 2 days PREDNISONE 20 MG TAB 711038 PREDNISONE Inactive TRIAMCINOLONE ACETONIDE 0.1 % OINT Apply to affected areas TID for up to 2 weeks TRIAMCINOLONE ACETONIDE 0.1 % OINT 0583594 TRIAMCINOLONE ACETONIDE Inactive Immunizations Vaccine Administration Date Value Standard Description pneumococcal immunization administered Pneumovax 23 [CVX33] pneumococcal polysaccharide vaccine, 23 valent Vital Signs Date Name Value Unit Range Description blood pressure, diastolic 65 mm[Hg] BP castillo blood pressure, systolic 138 mm[Hg] BP sys height E&M 66.5 [in_us] Bdy height pulse rate E&M 55 /min Heart rate temperature E&M 98.3 [degF] Body temperature weight E&M 221.0 [lb_av] Weight Measured blood pressure, diastolic 74 mm[Hg] BP castillo blood pressure, systolic 121 mm[Hg] BP sys height E&M 66.5 [in_us] Bdy height pulse rate E&M 64 /min Heart rate temperature E&M 98.2 [degF] Body temperature weight E&M 212.0 [lb_av] Weight Measured blood pressure, diastolic 75 mm[Hg] BP castillo blood pressure, systolic 154 mm[Hg] BP sys height E&M 66.5 [in_us] Bdy height pulse rate E&M 55 /min Heart rate temperature E&M 97.1 [degF] Body temperature weight E&M 215.5 [lb_av] Weight Measured blood pressure, diastolic 75 mm[Hg] BP castillo blood pressure, systolic 164 mm[Hg] BP sys height E&M 66.5 [in_us] Bdy height pulse rate E&M 60 /min Heart rate temperature E&M 97.7 [degF] Body temperature weight E&M 212.7 [lb_av] Weight Measured blood pressure, diastolic 72 mm[Hg] BP castillo blood pressure, systolic 144 mm[Hg] BP sys height E&M 66.5 [in_us] Bdy height pulse rate E&M 64 /min Heart rate temperature E&M 98.0 [degF] Body temperature weight E&M 214.9 [lb_av] Weight Measured blood pressure, diastolic 88 mm[Hg] BP castillo blood pressure, systolic 161 mm[Hg] BP sys pulse rate E&M 81 /min Heart rate temperature E&M 97.2 [degF] Body temperature weight E&M 219.1 [lb_av] Weight Measured Diagnostic Results Date Name Value Unit Range Description Lab Report: B-Type Natriuretic Peptide, UADIP W/MICRO, AUTO - Chemistry protein, total urine random 1+ mg/dL Negative RBC, urine, dipstick Negative Negative Lab Report: B-Type Natriuretic Peptide, UADIP W/MICRO, AUTO - Urinalysis urobilinogen, urine, semiquantitative (dipstick) 0.2 E.U./dL Normal leukocyte esterase, urine, by dipstick Negative Negative nitrite, urine, semiquantitative Negative Negative glucose, urine, semiquantitative Negative Negative ketones, urine, by test strip Negative Negative bilirubin, urine Negative Negative urine color Yellow Colorless;Lightyellow;Straw;Yellow appearance, urine Clear Clear specific gravity, urine 1.025 1.000-1.030 pH, urine, semiquantitative 5.5 5.0-8.5 Lab Report: Basic Metabolic Panel, B-Type Natriuretic Peptide - Chemistry sodium, serum 142 mmol/L 959-575 1684/07/18 potassium, serum 5.0 mmol/L 3.5-5.2 chloride, serum 107 mmol/L 98-107 carbon dioxide, venous blood 28.2 mmol/L 21.0-32.0 blood glucose 117 mg/dL 65-110 calcium, serum 9.1 mg/dL 8.5-10.1 urea nitrogen, blood 51 mg/dL 7-18 creatinine, serum 2.47 mg/dL 0.60-1.30 Lab Report: CBC, HGBA1C - Chemistry hemoglobin A1C, blood, as % of total hemoglobin 10.9 % 4.3-6.0 Lab Report: CBC, HGBA1C - Hematology leukocyte count, blood 7.7 10^3/MM^3 10*3/mm3 4.6-10.2 erythrocyte (RBC) count 4.28 10^6/MM^3 10*6/mm3 4.50-6.50 hemoglobin, blood 13.1 g/dL 14.0-18.0 hematocrit, blood 39.7 % 40.0-54.0 mean corpuscular volume, RBC 93 fL 80-97 mean corpuscular hemoglobin, RBC 30.6 pg 27.0-31.2 mean corpuscular hemoglobin concentration, RBC 33.0 G/DL % 31.8- 35.4 red blood cell distribution width 14.3 % 11.6-14.8 platelet count 238 10^3/MM^3 10*3/mm3 142-424 Lab Report: Comp. Metabolic Panel - Chemistry sodium, serum 140 mmol/L 873-617 8180/07/13 carbon dioxide, venous blood 23.7 mmol/L 21.0-32.0 potassium, serum 5.4 mmol/L 3.5-5.2 chloride, serum 106 mmol/L 98-107 blood glucose 156 mg/dL 65-110 urea nitrogen, blood 53 mg/dL 7-18 creatinine, serum 2.61 mg/dL 0.60-1.30 alanine aminotransferase (SGPT), serum 20 U/L 12-78 aspartate aminotransferase (SGOT), serum 17 U/L 15-37 calcium, serum 9.1 mg/dL 8.5-10.1 bilirubin, serum, total 0.50 mg/dL 0.00-1.00 Lab Report: Lipid Panel, HGBA1C, Comp. Metabolic Panel - Chemistry cholesterol, serum 126 mg/dL 496-298 1382/02/07 triglyceride, serum, fasting 83 mg/dL 30-200 HDL cholesterol, serum 70 mg/dL 32-96 LDL cholesterol, serum 39 mg/dL 0-130 hemoglobin A1C, blood, as % of total hemoglobin 8.3 % 4.3-6.0 sodium, serum 141 mmol/L 361-879 2731/02/07 carbon dioxide, venous blood 26.0 mmol/L 21.0-32.0 potassium, serum 5.1 mmol/L 3.5-5.2 chloride, serum 107 mmol/L 98-107 blood glucose 159 mg/dL 65-110 urea nitrogen, blood 42 mg/dL 7-18 creatinine, serum 2.27 mg/dL 0.55-1.30 alanine aminotransferase (SGPT), serum 22 U/L 12-78 aspartate aminotransferase (SGOT), serum 19 U/L 15-37 calcium, serum 8.3 mg/dL 8.5-10.1 bilirubin, serum, total 0.70 mg/dL 0.00-1.00 Encounters Code Encounter Date Provider Facility CPT-52776 Level 4 Est. Patient 08:48:38 CDT Simon Castillo MD [facility] CPT-54109 Level 4 Est. Patient 09:54:08 CDT Simon Castillo MD [facility] CPT-04019 Level 4 Est. Patient 16:11:23 CDT Simon Castillo MD [facility] CPT-45325 Level 4 Est. Patient 09:29:28 [employer]ISTOR [employer] Simon Castillo MD [facility] CPT-57659 Level 3 Est. Patient 09:18:25 CDT Simon Castillo MD [facility] CPT-46840 Level 4 Est. Patient 11:51:23 CDT Simon Castillo MD [facility] CPT-75045 Level 4 Est. Patient 14:32:04 CDT Neto Oshea DO [facility] CPT-08779 Level 3 Est. Patient 08:41:43 CDT Jonathanmeli Lolyalejandrina [facility] CPT-69311 Level 3 Est. Patient 08:40:53 CDT Jonathanllina Nashzell [facility] CPT-88540 Level 3 Est. Patient 08:36:52 CDT Giles Salcidol [facility] CPT-93204 Level 3 Est. Patient 09:08:44 CDT Jonathanviratriston Salcidol [facility] CPT-97910 Level 4 Est. Patient 09:17:32 [employer]OR [employer] Simon Castillo MD [facility] CPT-43684 Level 3 Est. 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 Patient 09:02:14 CDT Simon Castillo MD [facility] CPT-38595 Level 4 Est. Patient 08:47:25 CDT Simon Castillo MD [facility] CPT-26083 Level 4 Est. Patient 10:17:25 CDT Simon Castillo MD [facility] CPT-80218 Level 4 Est. Patient 10:10:09 [employer]OR [employer] Simon Castillo MD [facility] CPT-91058 Level 4 Est. Patient 11:48:19 CDT Simon Castillo MD [facility] CPT-70262 Level 4 Est. Patient 08:59:29 CDT Simon Castillo MD [facility] CPT-36493 Level 4 Est. Patient 10:52:51 [employer]OR [employer] Simon Castillo MD [facility] CPT-10841 Level 4 Est. Patient 11:50:30 CDT Simon Castillo MD [facility] CPT-03365 Level 4 Est. Patient 09:54:46 CDT Simon Castillo MD [facility] CPT-51119 Level 3 Est. Patient 11:10:14 CDT Simon Castillo MD [facility] CPT-23999 Level 4 Est. Patient 09:44:02 CDT Simon Castillo MD [facility] CPT-28337 Level 3 Est. Patient 09:27:48 CDT Simon Castillo MD [facility] CPT-29284 Level 3 Est. Patient 09:58:06 [employer]OR [employer] Simon Castillo MD [facility] CPT-20529 Level 3 Est. Patient 09:51:35 CDT Simon Castillo MD [facility] Procedures Code Procedure Name Date Entry Date Standard Description CPT-G0439 Subsequent Annual Wellness Exam 09:41:17 CDT CPT-31920 Lipid - LAB USE ONLY 17:15:33 CDT CPT-17043 HGBA1C - LAB USE ONLY 17:15:33 CDT CPT-78092 CMP - LAB USE ONLY 17:15:33 CDT CPT-72582 Venipuncture Draw Fee 17:15:33 CDT CPT-TCM Transitional Care Mgmt-High 11:01:28 [employer]OR [employer] CPT-34245 First Vx - Ix admin for Medicare patients 17:33:39 CDT CPT-79709 Fluzone High-Dose Intramuscular Suspension 17:33:39 CDT CPT-G0438 Initial Annual Wellness Exam 08:57:30 CDT CPT-04615 Chest 2V Frontal and Lat - XRAY USE ONLY 09:00:14 CDT CPT-65541 Venipuncture Draw Fee 13:33:02 CDT CPT-86565 Bone Density 09:37:49 [employer]OR [employer] CPT-35193 Fluzone High Dose 17:20:42 CDT CPT-38258 Prevnar 13 17:20:42 CDT CPT-82663 Administration 2+ single or combination vaccines inc oral 17:20:42 CDT CPT-35938 Administration single or combination vaccine inc oral 17 :20:42 CDT CPT-85134 Hand comp min 3V 09:24:38 CDT CPT-52004 Venipuncture Draw Fee 08:07:29 [employer]OR [employer] CPT-87047 Venipuncture Draw Fee 09:02:51 RES[employer]OR [employer] CPT-40000 Venipuncture Draw Fee 12:45:08 [employer]OR [employer] CPT-15489 Venipuncture Draw Fee 09:25:31 CDT CPT-G0008 Administration of Influenza Virus Vaccine 14:41:29 CDT CPT-81662 Fluzone High-Dose Intramuscular Suspension 14:41:29 CDT CPT-Cryo Cryotherapy 11:48:20 CDT CPT-08453 EKG Trac and Interp 09:21:58 CDT CPT-60236 Chest 2V Frontal and Lat 09:21:58 CDT CPT-Cryo Cryotherapy 10:54:51 [employer]OR [employer] CPT-80168 Administration 2+ single or combination vaccines inc oral 10:42:19 CDT CPT-82381 Administration single or combination vaccine inc oral 10 :42:19 CDT CPT-53586 Pneumovax 10:42:19 CDT CPT-45632 Influenza High Dose age 65+ 10:42:19 CDT CPT-98471 Administration single or combination vaccine inc oral 13 :18:54 CDT CPT-74938 Influenza High Dose age 65+ 13:18:54 CDT CPT-37828 Venipuncture Draw Fee 11:53:16 CDT CPT-28400 LS spine comp w obliq 11:03:13 CDT CPT-Cryo Cryotherapy 08:27:16 [employer]OR [employer] CPT-93011 Administration single or combination vaccine inc oral 10 :56:34 CDT CPT-60099 Influenza High Dose age 65+ 10:56:34 CDT
--- OUTSIDE RECORDS SUMMARY | 2018-03-31 16:02 | XMS REPORT | Clinical Summary ---
Author Author Admin, E Organization [facility] Address Unknown Phone Unavailable Allergies, Adverse Reactions, [...] type, not stated as uncontrolled Hypertension 401.9 Active Simon Castillo MD Unspecified essential hypertension FH DIABETES V18.0 Resolved Simon [...] Allergic rhinitis, cause unspecified Actinic keratosis 702.0 Active Simon Castillo MD Actinic keratosis Chest pain 786.50 Resolved Simon Castillo MD Unspecified chest pain Cough 786.2 Resolved Simon Castillo MD Cough Osteoarthritis 715.90 Active Simon Castillo MD Osteoarthrosis, unspecified whether generalized or localized, involving unspecified site Eczema 692.9 Active Simon Castillo MD Contact dermatitis and other eczema, unspecified cause Benign prostatic hypertrophy 600.00 Active Simon Castillo MD Hypertrophy (benign) of prostate without urinary obstruction and other lower urinary tract (LUTS) Bronchitis, acute 466.0 Resolved Simon Castillo MD Acute bronchitis Tinea pedis 110.4 Resolved Simon Castillo MD Dermatophytosis of foot Hand pain, bilateral 729.5 Resolved Simon Castillo MD Pain in limb Rheumatoid arthritis 714.0 Active Simon Castillo MD Rheumatoid arthritis Steroid use, 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 Simon Castillo MD Long-term (current) [...] Simon Castillo MD Other specified erythematous conditions DIABETES ICD-V18.0 Inactive Simon Castillo MD FH LUNG CANCER ICD-V16.1 Inactive Simon Castillo MD ABDOMINAL TENDERNESS ICD-789.60 Inactive Simon Castillo MD CHEST WALL PAIN, HX OF ICD-V15.89 Inactive Simon Castillo MD SEBORRHEIC KERATOSIS ICD-702.19 Inactive Simon Castillo MD BRONCHITIS, ACUTE ICD-466.0 Inactive Simon Castillo MD SINUSITIS, ACUTE ICD-461.9 Inactive Simon Castillo MD SCIATICA ICD-724.3 Inactive Simon Castillo MD 2012 ABDOMINAL PAIN RIGHT LOWER QUADRANT ICD-789.03 Inactive Simon Castillo MD BENIGN PROSTATIC HYPERTROPHY, MILD, HX OF ICD-V13.89 Inactive Simon Castillo MD Cough ICD-786.2 Inactive Simon Castillo MD Bronchitis, acute ICD-466.0 Inactive Simon Castillo MD Chest pain ICD-786.50 Inactive Simon Castillo MD Obesity ICD-278.00 Inactive Simon Castillo MD 2013 Tinea pedis ICD-110.4 Kerry Castillo MD Hand pain, bilateral ICD-729.5 Inactive Simon Castillo MD Steroid use, 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 Kerry Castillo MD Hand pain, bilateral ICD-729.5 Kerry Castillo MD Dyspnea ICD-786.09 Kerry Castillo MD 2016 Peripheral edema ICD-782.3 Kerry Castillo MD 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 Kerry Castillo MD Pharyngitis ICD-462 Kerry Castillo MD Medication List Medication Instructions Start Date Stop Date Generic Name NDC Status Provider Patient Instruction ASPIRIN EC 81 MG ORAL TBEC 1 po qd ASPIRIN 79704775720 Active Simon Castillo MD Active CLOTRIMAZOLE 1 % EXT CREA Apply to affected area of feet twice daily PRN Rash CLOTRIMAZOLE 65387976735 No Longer Active Simon Castillo MD Active PREDNISONE 5 MG TAB 1 po BID PREDNISONE 57340800190 Active Simon Castillo MD Active GLIMEPIRIDE 2 MG ORAL TABS 1 po BID GLIMEPIRIDE 32857905982 Active Simon Castillo MD Active FISH OIL 1000 MG CPDR 1 po BID OMEGA-3 FATTY ACIDS 69245307750 Active Simon Castillo MD Active LISINOPRIL 10 MG TABS 1 p qd LISINOPRIL 41901584243 Active Simon Castillo MD Active CLARITIN 10 MG TAB 1 tablet by mouth daily as needed for allergies LORATADINE 47961977477 No Longer Active Simon Castillo MD Active TRIAMCINOLONE ACETONIDE 0.1 % OINT Apply to affected areas TID for up to 2 weeks TRIAMCINOLONE ACETONIDE 99475679327 No Longer Active Simon Castillo MD Active LASIX 20 MG TAB 1 tablet by mouth daily x 2 days FUROSEMIDE 27534559320 No Longer Active Simon Castillo MD Active SULFASALAZINE 500 MG ORAL TBEC 2 tabs BID SULFASALAZINE 15756836697 No Longer Active Neto Oshea DO Active PREDNISONE 20 MG TAB 2 tabs daily for 3 days, 1 tab daily for 3 days, 1/2 tab daily for 2 days PREDNISONE 63444645910 No Longer Active 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 [employer]ENDANT Active PREDNISONE 20 MG TAB 1 tablet daily for airway inflammation 02/25 PREDNISONE 89018018848 No Longer Active 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 [employer] ATTENDANT Active AZITHROMYCIN 250 MG TABS 2 po qd x 1 day, then 1 po qd x 4 days AZITHROMYCIN 67238503877 No Longer Active 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 [employer]OD ATTENDANT Active HYDROCODONE-ACETAMINOPHEN 5-325 MG TABS 1 tab by mouth 8 hours as needed for pain HYDROCODONE-ACETAMINOPHEN 22944244413 Active Simon Castillo MD Active TRAMADOL HCL 50 MG TABS 1 po q6hr PRN Pain TRAMADOL HCL 86362162661 No Longer Active Simon Castillo MD Active PREDNISONE 5 MG TABS 1 po qod PREDNISONE 62394577676 No Longer Active Simon Castillo MD Active SYMBICORT 160-4.5 MCG/ACT AERO 2 puff BID BUDESONIDE- FORMOTEROL FUMARATE 31145216682 No Longer Active Simon Castillo MD Active FLONASE 50 MCG/ACT SUSP 2 puffs in each nostril daily FLUTICASONE PROPIONATE 76416670742 No Longer Active Simon Castillo MD Active PREDNISONE 20 MG TAB 2 tabs daily for 5 days, then 1 daily for 5 days PREDNISONE 41218527361 No Longer Active iSmon Castillo MD Active PREDNISONE 20 MG TAB 2 tabs daily for 5 days, then 1 daily for 5 days, then 0.5 for 4 days PREDNISONE 49113816606 No Longer Active Simon Castillo MD Active PREDNISONE 20 MG TAB 2 tabs daily for 3 days, 1 tab daily for 3 days, 1/2 tab daily for 2 days PREDNISONE 35486823420 No Longer Active Simon Castillo MD Active AZITHROMYCIN 250 MG TABS 2 po qd x 1 day, then 1 po qd x 4 days AZITHROMYCIN 23015752439 No Longer Active Simon Castillo MD Active CARVEDILOL 6.25 MG TABS 1 po BID CARVEDILOL 37396951495 Active Simon Castillo MD Active LISINOPRIL-HYDROCHLOROTHIAZIDE 20-12.5 MG TABS 1/2 tab by mouth daily LISINOPRIL-HYDROCHLOROTHIAZIDE 72301047844 No Longer Active Simon Castillo MD Active TRAMADOL HCL 50 MG TABS 1-2 tablets every 6 hours as needed for pain TRAMADOL HCL 91754251004 Active Giles Tatum APRN Active PREDNISONE 5 MG TAB Take one po qod PREDNISONE 94001608697 No Longer Active Simon Castillo MD Active GLYBURIDE 5 MG TAB Take one by mouth daily GLYBURIDE 14530389334 No Longer Active Simon Castillo MD Active LEVAQUIN 750 MG TABS 1 po qod x 5 doses LEVOFLOXACIN 82776389191 No Longer Active Simon Castillo MD Active CETIRIZINE HCL 10 MG TABS 1 po qd as needed for allergies CETIRIZINE HCL 92287610391 No Longer Active Simon Castillo MD Active BILBERRY CAPS 1 tab daily BILBERRY (VACCINIUM MYRTILLUS) CAPS 50447514690 Active Simon Castillo MD Active ATENOLOL 50 MG TABS Take one by mouth daily ATENOLOL 50036435130 No Longer Active Simon Castillo MD Active FLONASE 50 MCG/ACT SUSP 2 puffs in each nostril daily FLUTICASONE PROPIONATE 93206388909 No Longer Active Simon Castillo MD Active GLYBURIDE 5 MG TAB Take one by mouth daily GLYBURIDE 33731403950 No Longer Active Simon Castillo MD Active SYMBICORT 80-4.5 MCG/ACT AERO 2 puffs twice a day BUDESONIDE-FORMOTEROL FUMARATE 67957404797 No Longer Active Simon Castillo MD Active PREDNISONE 20 MG TAB 2 tabs daily for 4 days, 1 tab daily for 4 days, 1/2 tab daily for 4 days PREDNISONE 93130876521 No Longer Active Simon Castillo MD Active AMOXICILLIN 500 MG CAPS 2 po BID x 10 days AMOXICILLIN 89406534182 No Longer Active Simon Castillo MD Active METFORMIN HCL 1000 MG TABS 1 by mounth twice a day METFORMIN HCL 28354324353 No Longer Active Simon Castillo MD Active LUTEIN-ZEAXANTHIN 6-1 MG TABS Take 2 by mouth daily LUTEIN-ZEAXANTHIN 84217636786 Active Simon Castillo MD Active IBUPROFEN 800 MG TABS Take 1 tab every 6 hrs prn IBUPROFEN 35395324775 No Longer Active Simon Castillo MD Active GLYBURIDE 2.5 MG TABS Take one by mouth daily GLYBURIDE 05733600829 No Longer Active Simon Castillo MD Active LANCETS MISC 2 qd LANCETS 84684025973 Active Pamela Conde Active ACACIA CONTOUR TEST STRP Use with testing twice daily GLUCOSE BLOOD 47549260511 Active Simon Castillo MD Active GLYBURIDE 2.5 MG TABS Take one by mouth daily GLYBURIDE 2.5 MG TABS 661728 GLYBURIDE Inactive PREDNISONE 20 MG TAB 2 tabs daily for 4 days, 1 tab daily for 4 days, 1/2 tab daily for 4 days PREDNISONE 20 MG TAB 682440 PREDNISONE Inactive SYMBICORT 80-4.5 MCG/ACT AERO 2 puffs twice a day SYMBICORT 80-4.5 MCG/ACT AERO BUDESONIDE-FORMOTEROL FUMARATE Inactive FLONASE 50 MCG/ACT SUSP 2 puffs in each nostril daily FLONASE 50 MCG/ACT SUSP FLUTICASONE PROPIONATE Inactive ATENOLOL 50 MG TABS Take one by mouth daily ATENOLOL 50 MG TABS 751148 ATENOLOL Inactive CETIRIZINE HCL 10 MG TABS 1 po qd as needed for allergies CETIRIZINE HCL 10 MG TABS 9225071 CETIRIZINE HCL Inactive LEVAQUIN 750 MG TABS 1 po qod x 5 doses LEVAQUIN 750 MG TABS 929464 LEVOFLOXACIN Inactive GLYBURIDE 5 MG TAB Take one by mouth daily GLYBURIDE 5 MG TAB 052096 GLYBURIDE Inactive PREDNISONE 5 MG TAB Take one po qod PREDNISONE 5 MG TAB 793345 PREDNISONE Inactive PREDNISONE 20 MG TAB 2 tabs daily for 5 days, then 1 daily for 5 days PREDNISONE 20 MG TAB 564417 PREDNISONE Inactive FLONASE 50 MCG/ACT SUSP 2 puffs in each nostril daily FLONASE 50 MCG/ACT SUSP FLUTICASONE PROPIONATE Inactive SYMBICORT 160-4.5 MCG/ACT AERO 2 puff BID SYMBICORT 160-4.5 MCG/ACT AERO BUDESONIDE-FORMOTEROL FUMARATE Inactive PREDNISONE 5 MG TABS 1 po qod PREDNISONE 5 MG TABS 894412 PREDNISONE Inactive PREDNISONE 20 MG TAB 1 tablet daily for airway inflammation 02/25 PREDNISONE 20 MG TAB 895644 PREDNISONE Inactive SULFASALAZINE 500 MG ORAL TBEC 2 tabs BID SULFASALAZINE 500 MG ORAL TBEC 213968 SULFASALAZINE Inactive LASIX 20 MG TAB 1 tablet by mouth daily x 2 days LASIX 20 MG TAB 900402 FUROSEMIDE Inactive CLARITIN 10 MG TAB 1 tablet by mouth daily as needed for allergies CLARITIN 10 MG TAB 204474 LORATADINE Inactive CLOTRIMAZOLE 1 % EXT CREA Apply to affected area of feet twice daily PRN Rash CLOTRIMAZOLE 1 % EXT CREA 442157 CLOTRIMAZOLE Inactive AMOXICILLIN 500 MG CAPS 2 po BID x 10 days AMOXICILLIN 500 MG CAPS 631478 AMOXICILLIN Inactive GLYBURIDE 5 MG TAB Take one by mouth daily GLYBURIDE 5 MG TAB 005873 GLYBURIDE Inactive AZITHROMYCIN 250 MG TABS 2 po qd x 1 day, then 1 po qd x 4 days AZITHROMYCIN 250 MG TABS 3974015 AZITHROMYCIN Inactive PREDNISONE 20 MG TAB 2 tabs daily for 3 days, 1 tab daily for 3 days, 1/2 tab daily for 2 days PREDNISONE 20 MG TAB 885213 PREDNISONE Inactive PREDNISONE 20 MG TAB 2 tabs daily for 5 days, then 1 daily for 5 days, then 0.5 for 4 days PREDNISONE 20 MG TAB 707946 PREDNISONE Inactive AZITHROMYCIN 250 MG TABS 2 po qd x 1 day, then 1 po qd x 4 days AZITHROMYCIN 250 MG TABS 1510029 AZITHROMYCIN Inactive PREDNISONE 20 MG TAB 2 tabs daily for 3 days, 1 tab daily for 3 days, 1/2 tab daily for 2 days PREDNISONE 20 MG TAB 461815 PREDNISONE Inactive TRIAMCINOLONE ACETONIDE 0.1 % OINT Apply to affected areas TID for up to 2 weeks TRIAMCINOLONE ACETONIDE 0.1 % OINT 7666055 TRIAMCINOLONE ACETONIDE Inactive Immunizations Vaccine Administration Date Value Standard Description pneumococcal immunization administered Pneumovax 23 [CVX33] pneumococcal polysaccharide vaccine, 23 valent Vital Signs Date Name Value Unit Range Description blood pressure, diastolic - 8462-4 88 mm[Hg] BP castillo blood pressure, systolic - 8480-6 161 mm[Hg] BP sys pulse rate E&M - 8867-4 81 /min Heart rate temperature E&M 97.2 [degF] Body temperature weight E&M - 3141-9 219.1 [lb_av] Weight Measured blood pressure, diastolic - 8462-4 74 mm[Hg] BP castillo blood pressure, systolic - 8480-6 139 mm[Hg] BP sys pulse rate E&M - 8867-4 74 /min Heart rate temperature E&M 97.6 [degF] Body temperature weight E&M - 3141-9 217.5 [lb_av] Weight Measured blood pressure, diastolic - 8462-4 73 mm[Hg] BP castillo blood pressure, systolic - 8480-6 140 mm[Hg] BP sys height E&M - 8302-2 66.5 [in_us] Bdy height pulse rate E&M - 8867-4 63 /min Heart rate temperature E&M 97.6 [degF] Body temperature weight E&M - 3141-9 216 [lb_av] Weight Measured blood pressure, diastolic - 8462-4 71 mm[Hg] BP castillo blood pressure, systolic - 8480-6 138 mm[Hg] BP sys pulse rate E&M - 8867-4 69 /min Heart rate temperature E&M 97.6 [degF] Body temperature weight E&M - 3141-9 218 [lb_av] Weight Measured blood pressure, diastolic - 8462-4 88 mm[Hg] BP castillo blood pressure, systolic - 8480-6 173 mm[Hg] BP sys pulse rate E&M - 8867-4 84 /min Heart rate temperature E&M 98.3 [degF] Body temperature weight E&M - 3141-9 218 [lb_av] Weight Measured blood pressure, diastolic - 8462-4 73 mm[Hg] BP castillo blood pressure, systolic - 8480-6 156 mm[Hg] BP sys pulse rate E&M - 8867-4 64 /min Heart rate temperature E&M 97.5 [degF] Body temperature weight E&M - 3141-9 216 [lb_av] Weight Measured blood pressure, diastolic - 8462-4 84 mm[Hg] BP castillo blood pressure, systolic - 8480-6 161 mm[Hg] BP sys pulse rate E&M - 8867-4 117 /min Heart rate temperature E&M 98 [degF] Body temperature weight E&M - 3141-9 211 [lb_av] Weight Measured Diagnostic Results Date Name Value Unit Range Description Lab Report: CBC W/DIFF, Comp. Metabolic Panel - Chemistry sodium, serum 137 mmol/L 835-298 6866/06/06 carbon dioxide, venous blood 24.9 mmol/L 21.0-32.0 potassium, serum 5.6 mmol/L 3.5-5.2 chloride, serum 104 mmol/L 98-107 blood glucose 278 mg/dL 65-110 urea nitrogen, blood 42 mg/dL 7-18 creatinine, serum 2.15 mg/dL 0.55-1.30 alanine aminotransferase (SGPT), serum 26 U/L 12-78 aspartate aminotransferase (SGOT), serum 23 U/L 15-37 calcium, serum 8.5 mg/dL 8.5-10.1 bilirubin, serum, total 0.40 mg/dL 0.00-1.00 Lab Report: CBC W/DIFF, Comp. Metabolic Panel - Hematology leukocyte count, blood 7.4 10^3/MM^3 10*3/mm3 4.6-10.2 hematocrit, blood 41.1 % 41.0-53.0 mean corpuscular volume, RBC 95 fL 80-97 mean corpuscular hemoglobin, RBC 30.8 pg 27.0-31.2 mean corpuscular hemoglobin concentration, RBC 32.6 G/DL % 31.8- 35.4 red blood cell distribution width 15.5 % 11.6-14.8 platelet count 210 10^3/MM^3 10*3/mm3 411-833 5567/06/06 neutrophils as percent of blood leukocytes 62.2 % 42.2-75.2 monocytes as percent of blood leukocytes 11.1 % 1.7-9.3 lymphocytes as percent of blood leukocytes 21.5 % 20.5-51.1 erythrocyte (RBC) count 4.35 10^6/MM^3 10*6/mm3 4.69-6.13 hemoglobin, blood 13.4 g/dL 13.5-17.5 Lab Report: CBC, Comp. Metabolic Panel - Chemistry sodium, serum 139 mmol/L 064-611 2307/03/17 carbon dioxide, venous blood 29.0 mmol/L 21.0-32.0 potassium, serum 5.3 mmol/L 3.5-5.2 chloride, serum 103 mmol/L 98-107 blood glucose 247 mg/dL 65-110 urea nitrogen, blood 35 mg/dL 7-18 creatinine, serum 2.45 mg/dL 0.55-1.30 alanine aminotransferase (SGPT), serum 24 U/L 12-78 aspartate aminotransferase (SGOT), serum 16 U/L 15-37 calcium, serum 8.6 mg/dL 8.5-10.1 bilirubin, serum, total 0.20 mg/dL 0.00-1.00 Lab Report: CBC, Comp. Metabolic Panel - Hematology mean corpuscular volume, RBC 92 fL 80-97 hematocrit, blood 42.0 % 41.0-53.0 hemoglobin, blood 13.6 g/dL 13.5-17.5 erythrocyte (RBC) count 4.56 10^6/MM^3 10*6/mm3 4.69-6.13 leukocyte count, blood 10.9 10^3/MM^3 10*3/mm3 4.6-10.2 mean corpuscular hemoglobin, RBC 29.9 pg 27.0-31.2 mean corpuscular hemoglobin concentration, RBC 32.5 G/DL % 31.8- 35.4 red blood cell distribution width 15.4 % 11.6-14.8 platelet count 283 10^3/MM^3 10*3/mm3 142-424 Lab Report: Lipid Panel, HGBA1C, Comp. Metabolic Panel - Chemistry cholesterol, serum 126 mg/dL 349-851 1437/02/07 carbon dioxide, venous blood 26.0 mmol/L 21.0-32.0 potassium, serum 5.1 mmol/L 3.5-5.2 chloride, serum 107 mmol/L 98-107 blood glucose 159 mg/dL 65-110 urea nitrogen, blood 42 mg/dL 7-18 creatinine, serum 2.27 mg/dL 0.55-1.30 alanine aminotransferase (SGPT), serum 22 U/L -78 aspartate aminotransferase (SGOT), serum 19 U/L 15-37 calcium, serum 8.3 mg/dL 8.5-10.1 bilirubin, serum, total 0.70 mg/dL 0.00-1.00 triglyceride, serum, fasting 83 mg/dL 30-200 HDL cholesterol, serum 70 mg/dL 32-96 LDL cholesterol, serum 39 mg/dL 0-130 hemoglobin A1C, blood, as % of total hemoglobin 8.3 % 4.3-6.0 sodium, serum 141 mmol/L 136-145 Lab Report: Uric Acid - Chemistry uric acid, serum 6.3 mg/dL 2.6-7.2 Encounters Code Encounter Date Provider Facility CPT-85740 Level 4 Est. Patient 09:29:28 [employer] Simon Castillo MD [facility] CPT-95146 Level 3 Est. Patient 09:18:25 CDT Simon Castillo MD [facility] CPT-35632 Level 4 Est. Patient 11:51:23 CDT Simon Castillo MD [facility] CPT-86787 Level 4 Est. Patient 14:32:04 CDT Neto Oshea DO [facility] CPT-90698 Level 3 Est. Patient 08:41:43 CDT Giles Tatum [facility] CPT-09828 Level 3 Est. Patient 08:40:53 CDT Giles Tatum [facility] CPT-91148 Level 3 Est. Patient 08:36:52 CDT Giles Tatum [facility] CPT-95843 Level 3 Est. Patient 09:08:44 CDT Giles Tatum [facility] CPT-25449 Level 4 Est. Patient 09:17:32 [employer] Simon Castillo MD [facility] CPT-09927 Level 3 Est. Patient 11:22:22 [employer] Simon Castillo MD [facility] CPT-97350 Level 3 Est. Patient 09:02:14 CDT Simon Castillo MD [facility] CPT-04289 Level 4 Est. Patient 08:47:25 CDT Simon Castillo MD [facility] CPT-39626 Level 4 Est. Patient 10:17:25 CDT Simon Castillo MD [facility] CPT-99917 Level 4 Est. Patient 10:10:09 [employer] Simon Castillo MD [facility] CPT-19905 Level 4 Est. Patient 11:48:19 CDT Simon Castillo MD [facility] CPT-46283 Level 4 Est. Patient 08:59:29 CDT Simon Castillo MD [facility] CPT-94119 Level 4 Est. Patient 10:52:51 [employer] Simon Castillo MD [facility] CPT-36732 Level 4 Est. Patient 11:50:30 CDT Simon Castillo MD [facility] CPT-99131 Level 4 Est. Patient 09:54:46 CDT Simon Castillo MD [facility] CPT-58571 Level 3 Est. Patient 11:10:14 CDT Simon Castillo MD [facility] CPT-46547 Level 4 Est. Patient 09:44:02 CDT Simon Castillo MD [facility] CPT-80236 Level 3 Est. Patient 09:27:48 CDT Simon Castillo MD [facility] CPT-78434 Level 3 Est. Patient 09:58:06 [employer] Simon Castillo MD [facility] CPT-59951 Level 3 Est. Patient 09:51:35 CDT Simon Castillo MD [facility] Procedures Code Procedure Name Date Entry Date Standard Description CPT-11273 First Vx - Ix admin for Medicare patients 17:33:39 CDT CPT-23992 Fluzone High-Dose Intramuscular Suspension 17:33:39 CDT CPT-G0438 Initial Annual Wellness Exam 08:57:30 CDT CPT-74398 Chest 2V Frontal and Lat - XRAY USE ONLY 09:00:14 CDT CPT-68463 Venipuncture Draw Fee 13:33:02 CDT CPT-97432 Bone Density 09:37:49 [employer] CPT-01695 Fluzone High Dose 17:20:42 CDT CPT-62108 Prevnar 13 17:20:42 CDT CPT-81117 Administration 2+ single or combination vaccines inc oral 17:20:42 CDT CPT-85803 Administration single or combination vaccine inc oral 17 :20:42 CDT CPT-85672 Hand comp min 3V 09:24:38 CDT CPT-88988 Venipuncture Draw Fee 08:07:29 [employer] CPT-01229 Venipuncture Draw Fee 09:02:51 [employer] CPT-08582 Venipuncture Draw Fee 12:45:08 [employer] CPT-85571 Venipuncture Draw Fee 09:25:31 CDT CPT-G0008 Administration of Influenza Virus Vaccine 14:41:29 CDT CPT-51311 Fluzone High-Dose Intramuscular Suspension 14:41:29 CDT CPT-Cryo Cryotherapy 11:48:20 CDT CPT-54086 EKG Trac and Interp 09:21:58 CDT CPT-35461 Chest 2V Frontal and Lat 09:21:58 CDT CPT-Cryo Cryotherapy 10:54:51 [employer] CPT-89005 Administration 2+ single or combination vaccines inc oral 10:42:19 CDT CPT-56424 Administration single or combination vaccine inc oral 10 :42:19 CDT CPT-72394 Pneumovax 10:42:19 CDT CPT-91636 Influenza High Dose age 65+ 10:42:19 CDT CPT-05343 Administration single or combination vaccine inc oral 13 :18:54 CDT CPT-90300 Influenza High Dose age 65+ 13:18:54 CDT CPT-00493 Venipuncture Draw Fee 11:53:16 CDT CPT-17313 LS spine comp w obliq 11:03:13 CDT CPT-Cryo Cryotherapy 08:27:16 [employer] CPT-84522 Administration single or combination vaccine inc oral 10 :56:34 CDT CPT-56849 Influenza High Dose age 65+ 10:56:34 CDT
--- OUTSIDE RECORDS SUMMARY | 2018-03-31 16:03 | XMS REPORT | Clinical Summary ---
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 Simon Castillo MD Long-term (current) [...] a health care facility Sinusitis, acute 461.9 Resolved Simon Castillo MD Acute sinusitis, unspecified Dyspnea 786.09 Resolved Simon Castillo MD Other dyspnea and respiratory abnormality Actinic keratosis 702.0 Active Simon Castillo MD Actinic keratosis Syncope and collapse 780.2 Resolved Simon Castillo MD Syncope and collapse abrasion, face, infected 910.1 Resolved Simon Castillo MD Abrasion or friction burn of face, neck, and scalp except eye, infected Other injury of unspecified body region, initial encounter 879.8 Resolved Simon Castillo MD Open wound(s) (multiple) of unspecified site(s) except limbs, without mention of complication Lesion of skin of face 709.9 Resolved Simon Castillo MD Unspecified disorder of skin and subcutaneous tissue Bronchitis, acute with mild bronchospasm 466.0 Active Simon Castillo MD Acute bronchitis FH DIABETES ICD-V18.0 Inactive Simon Castillo MD FH [...] ICD-786.2 Inactive Simon Castillo MD Eczema ICD-692.9 Inactive Simon Castillo MD 02/27 Bronchitis, acute ICD-466.0 Kerry Castillo MD Tinea pedis ICD-110.4 Inactive Simon Castillo MD Hand pain, bilateral ICD-729.5 Kerry Castillo MD Steroid use, [facility] ICD-V58.65 Inactive Simon Castillo MD Hand pain, bilateral ICD-729.5 Kerry Castillo MD 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 Kerry Castillo MD Pharyngitis ICD-462 Kerry Castillo MD Dyspnea ICD-786.09 Kerry Castillo MD 2016 Peripheral edema ICD-782.3 Kerry Castillo MD Pneumonia, right lower lobe ICD-486 Inactive Simon Castillo MD Sinusitis, acute ICD-461.9 Kerry Castillo MD Dyspnea ICD-786.09 Kerry Castillo MD 2016 Syncope and collapse ICD-780.2 Kerry Castillo MD abrasion, face, infected ICD-910.1 Kerry Castillo MD Other injury of unspecified body region, initial encounter ICD-879.8 Inactive Simon Castillo MD Lesion of skin of face ICD-709.9 Inactive Simon Castillo MD Medication List Medication Instructions Start Date Stop Date Generic Name NDC Status Provider Patient Instruction SINGULAIR 10 MG ORAL TABLET 1 po qd PRN Asthma/Allergies MONTELUKAST SODIUM 85427478752 Active Simon Castillo MD Active PROMETHAZINE-CODEINE 6.25-10 MG/5ML ORAL SYRUP 5ml po qHS PRN Cough PROMETHAZINE-CODEINE 74989916225 Active Simon Castillo MD Active AZITHROMYCIN 250 MG ORAL TABLET 2 po qd x 1, then 1 po qd x 4 AZITHROMYCIN 49438401508 Active Simon Castillo MD Active PREDNISONE 20 MG ORAL TABLET 2 po qd x 5 days PREDNISONE 64193151197 Active Simon Castillo MD Active VIAGRA 100 MG ORAL TABLET 0.5 to 1 po qd PRN Erectile dysfunction SILDENAFIL CITRATE 65950597049 Active Simon Castillo MD Active LUTEIN-ZEAXANTHIN 6-1 MG ORAL TABLET 2 po qd LUTEIN- ZEAXANTHIN 90002121191 Active Simon Castillo MD Active BILBERRY CAPSULE 1 po qd BILBERRY (VACCINIUM MYRTILLUS) CAPS 84343419468 Active Simon Castillo MD Active TRAMADOL HCL 50 MG ORAL TABLET 1-2 tablets every 6 hours as needed for pain TRAMADOL HCL 31084108537 No Longer Active Simon Castillo MD Active HYDROCODONE-ACETAMINOPHEN 5-325 MG ORAL TABLET 1 tab by mouth 8 hours as needed for pain HYDROCODONE-ACETAMINOPHEN 86383851951 No Longer Active Simon Castillo MD Active BUMETANIDE 0.5 MG ORAL TABLET 1 po qd BUMETANIDE 96638395172 Active Simon Castillo MD Active AUGMENTIN 875-125 MG ORAL TABLET 1 po BID x 10 days AMOXICILLIN-POT CLAVULANATE 10177276244 No Longer Active Simon Castillo MD Active PIOGLITAZONE HCL 30 MG ORAL TABLET 1 po qd PIOGLITAZONE HCL 64167800406 Active Simon Castillo MD Active GLIMEPIRIDE 4 MG ORAL TABLET 1 po BID GLIMEPIRIDE 74999050236 Active Simon Castillo MD Active ASPIRIN EC 81 MG ORAL TABLET DELAYED RELEASE 1 po qd ASPIRIN 87621366171 Active Simon Castillo MD Active CLOTRIMAZOLE 1 % EXTERNAL CREAM Apply to affected area of feet twice daily PRN Rash CLOTRIMAZOLE 29986493234 No Longer Active Simon Castillo MD Active PREDNISONE 5 MG ORAL TABLET 1 po BID PREDNISONE 40068950981 Active Dolly MCDERMOTT Active FISH OIL 1000 MG ORAL CAPSULE DELAYED RELEASE 1 po BID OMEGA- 3 FATTY ACIDS 59931535810 Active Simon Castillo MD Active LISINOPRIL 10 MG ORAL TABLET 1 p qd LISINOPRIL 98686971662 Active Simon Castillo MD Active CLARITIN 10 MG ORAL TABLET 1 tablet by mouth daily as needed for allergies LORATADINE 88192995960 No Longer Active Simon Castillo MD Active TRIAMCINOLONE ACETONIDE 0.1 % EXTERNAL OINTMENT Apply to affected areas TID for up to 2 weeks TRIAMCINOLONE ACETONIDE 53873997001 No Longer Active Simon Castillo MD Active LASIX 20 MG ORAL TABLET 1 tablet by mouth daily x 2 days FUROSEMIDE 69441031551 No Longer Active Simon Castillo MD Active SULFASALAZINE 500 MG ORAL TABLET DELAYED RELEASE 2 tabs BID 02/26 SULFASALAZINE 62986722208 No Longer Active Neto Oshea DO Active PREDNISONE 20 MG ORAL TABLET 2 tabs daily for 3 days, 1 tab daily for 3 days, 1/2 tab daily for 2 days PREDNISONE 89220587125 No Longer Active Giles Tatum APRN Active PREDNISONE 20 MG ORAL TABLET 1 tablet daily for airway inflammation PREDNISONE 27391367953 No Longer Active Giles Tatum APRN Active AZITHROMYCIN 250 MG ORAL TABLET 2 po qd x 1 day, then 1 po qd x 4 days 01/28 AZITHROMYCIN 75939748836 No Longer Active Giles Tatum APRN Active TRAMADOL HCL 50 MG ORAL TABLET 1 po q6hr PRN Pain TRAMADOL HCL 56623227371 No Longer Active Simon Castillo MD Active PREDNISONE 5 MG ORAL TABLET 1 po qod PREDNISONE 50923167220 No Longer Active Simon Castillo MD Active SYMBICORT 160-4.5 MCG/ACT INHALATION AEROSOL 2 puff BID BUDESONIDE-FORMOTEROL FUMARATE 38135024658 No Longer Active Simon Castillo MD Active FLONASE 50 MCG/ACT NASAL SUSPENSION 2 puffs in each nostril daily FLUTICASONE PROPIONATE 57721327766 No Longer Active Simon Castillo MD Active PREDNISONE 20 MG ORAL TABLET 2 tabs daily for 5 days, then 1 daily for 5 days PREDNISONE 05523249371 No Longer Active Simon Castillo MD Active PREDNISONE 20 MG ORAL TABLET 2 tabs daily for 5 days, then 1 daily for 5 days , then 0.5 for 4 days PREDNISONE 19140330790 No Longer Active Simon Castillo MD Active PREDNISONE 20 MG ORAL TABLET 2 tabs daily for 3 days, 1 tab daily for 3 days, 1/2 tab daily for 2 days PREDNISONE 06669784240 No Longer Active Simon Castillo MD Active AZITHROMYCIN 250 MG ORAL TABLET 2 po qd x 1 day, then 1 po qd x 4 days 03/16 AZITHROMYCIN 12217270951 No Longer Active Simon Castillo MD Active CARVEDILOL 6.25 MG ORAL TABLET 1 po BID CARVEDILOL 52375962432 Active Simon Castillo MD Active LISINOPRIL-HYDROCHLOROTHIAZIDE 20-12.5 MG ORAL TABLET 1/2 tab by mouth daily LISINOPRIL-HYDROCHLOROTHIAZIDE 66352945521 No Longer Active Simon Castillo MD Active PREDNISONE 5 MG ORAL TABLET Take one po qod PREDNISONE 59588814658 No Longer Active Simon Castillo MD Active GLYBURIDE 5 MG ORAL TABLET Take one by mouth daily GLYBURIDE 51703483670 No Longer Active Simon Castillo MD Active LEVAQUIN 750 MG ORAL TABLET 1 po qod x 5 doses LEVOFLOXACIN 53683704571 No Longer Active Simon Castillo MD Active CETIRIZINE HCL 10 MG ORAL TABLET 1 po qd as needed for allergies CETIRIZINE HCL 02626386515 No Longer Active Simon Castillo MD Active ATENOLOL 50 MG ORAL TABLET Take one by mouth daily ATENOLOL 95658128131 No Longer Active Simon Castillo MD Active FLONASE 50 MCG/ACT NASAL SUSPENSION 2 puffs in each nostril daily FLUTICASONE PROPIONATE 98356297420 No Longer Active Simon Castillo MD Active GLYBURIDE 5 MG ORAL TABLET Take one by mouth daily GLYBURIDE 00338564025 No Longer Active Simon Castillo MD Active SYMBICORT 80-4.5 MCG/ACT INHALATION AEROSOL 2 puffs twice a day BUDESONIDE-FORMOTEROL FUMARATE 02421754484 No Longer Active Simon Castillo MD Active PREDNISONE 20 MG ORAL TABLET 2 tabs daily for 4 days, 1 tab daily for 4 days, 1/2 tab daily for 4 days PREDNISONE 49552458220 No Longer Active Simon Castillo MD Active AMOXICILLIN 500 MG ORAL CAPSULE 2 po BID x 10 days AMOXICILLIN 28319423005 No Longer Active Simon Castillo MD Active METFORMIN HCL 1000 MG ORAL TABLET 1 by [facility] twice a day METFORMIN HCL 90307584240 No Longer Active Simon Castillo MD Active IBUPROFEN 800 MG ORAL TABLET Take 1 tab every 6 hrs prn IBUPROFEN 16702344643 No Longer Active Simon Castillo MD Active GLYBURIDE 2.5 MG ORAL TABLET Take one by mouth daily GLYBURIDE 40352097772 No Longer Active Simon Castillo MD Active LANCETS 2 qd LANCETS 51564856992 Active Pamela Hernandesoy Active ACACIA CONTOUR TEST IN VITRO STRIP Use with testing twice daily GLUCOSE BLOOD 25298809532 Active Simon Castillo MD Active GLYBURIDE 2.5 MG ORAL TABLET Take one by mouth daily GLYBURIDE 2.5 MG ORAL TABLET 320204 GLYBURIDE Inactive PREDNISONE 20 MG ORAL TABLET 2 tabs daily for 4 days, 1 tab daily for 4 days, 1/2 tab daily for 4 days PREDNISONE 20 MG ORAL TABLET 254848 PREDNISONE Inactive SYMBICORT 80-4.5 MCG/ACT INHALATION AEROSOL 2 puffs twice a day SYMBICORT 80-4.5 MCG/ACT INHALATION AEROSOL BUDESONIDE- FORMOTEROL FUMARATE Inactive FLONASE 50 MCG/ACT NASAL SUSPENSION 2 puffs in each nostril daily FLONASE 50 MCG/ACT NASAL SUSPENSION 3141840 FLUTICASONE PROPIONATE Inactive ATENOLOL 50 MG ORAL TABLET Take one by mouth daily ATENOLOL 50 MG ORAL TABLET 091543 ATENOLOL Inactive CETIRIZINE HCL 10 MG ORAL TABLET 1 po qd as needed for allergies CETIRIZINE HCL 10 MG ORAL TABLET 2729456 CETIRIZINE HCL Inactive LEVAQUIN 750 MG ORAL TABLET 1 po qod x 5 doses LEVAQUIN 750 MG ORAL TABLET 469719 LEVOFLOXACIN Inactive GLYBURIDE 5 MG ORAL TABLET Take one by mouth daily GLYBURIDE 5 MG ORAL TABLET 112450 GLYBURIDE Inactive PREDNISONE 5 MG ORAL TABLET Take one po qod PREDNISONE 5 MG ORAL TABLET 899860 PREDNISONE Inactive PREDNISONE 20 MG ORAL TABLET 2 tabs daily for 5 days, then 1 daily for 5 days PREDNISONE 20 MG ORAL TABLET 484760 PREDNISONE Inactive FLONASE 50 MCG/ACT NASAL SUSPENSION 2 puffs in each nostril daily FLONASE 50 MCG/ACT NASAL SUSPENSION 8111466 FLUTICASONE PROPIONATE Inactive SYMBICORT 160-4.5 MCG/ACT INHALATION AEROSOL 2 puff BID SYMBICORT 160-4.5 MCG/ACT INHALATION AEROSOL BUDESONIDE-FORMOTEROL FUMARATE Inactive PREDNISONE 5 MG ORAL TABLET 1 po qod PREDNISONE 5 MG ORAL TABLET 526386 PREDNISONE Inactive PREDNISONE 20 MG ORAL TABLET 1 tablet daily for airway inflammation PREDNISONE 20 MG ORAL TABLET 445472 PREDNISONE Inactive SULFASALAZINE 500 MG ORAL TABLET DELAYED RELEASE 2 tabs BID 02/26 SULFASALAZINE 500 MG ORAL TABLET DELAYED RELEASE 702031 SULFASALAZINE Inactive LASIX 20 MG ORAL TABLET 1 tablet by mouth daily x 2 days LASIX 20 MG ORAL TABLET 470194 FUROSEMIDE Inactive CLARITIN 10 MG ORAL TABLET 1 tablet by mouth daily as needed for allergies CLARITIN 10 MG ORAL TABLET 156291 LORATADINE Inactive CLOTRIMAZOLE 1 % EXTERNAL CREAM Apply to affected area of feet twice daily PRN Rash CLOTRIMAZOLE 1 % EXTERNAL CREAM 779950 CLOTRIMAZOLE Inactive HYDROCODONE-ACETAMINOPHEN 5-325 MG ORAL TABLET 1 tab by mouth 8 hours as needed for pain HYDROCODONE-ACETAMINOPHEN 5-325 MG ORAL TABLET 774530 HYDROCODONE-ACETAMINOPHEN Inactive TRAMADOL HCL 50 MG ORAL TABLET 1-2 tablets every 6 hours as needed for pain TRAMADOL HCL 50 MG ORAL TABLET 022386 TRAMADOL HCL Inactive AMOXICILLIN 500 MG ORAL CAPSULE 2 po BID x 10 days AMOXICILLIN 500 MG ORAL CAPSULE 431604 AMOXICILLIN Inactive GLYBURIDE 5 MG ORAL TABLET Take one by mouth daily GLYBURIDE 5 MG ORAL TABLET 969155 GLYBURIDE Inactive AZITHROMYCIN 250 MG ORAL TABLET 2 po qd x 1 day, then 1 po qd x 4 days 03/16 AZITHROMYCIN 250 MG ORAL TABLET 598201 AZITHROMYCIN Inactive PREDNISONE 20 MG ORAL TABLET 2 tabs daily for 3 days, 1 tab daily for 3 days, 1/2 tab daily for 2 days PREDNISONE 20 MG ORAL TABLET 559368 PREDNISONE Inactive PREDNISONE 20 MG ORAL TABLET 2 tabs daily for 5 days, then 1 daily for 5 days , then 0.5 for 4 days PREDNISONE 20 MG ORAL TABLET 093460 PREDNISONE Inactive AZITHROMYCIN 250 MG ORAL TABLET 2 po qd x 1 day, then 1 po qd x 4 days 01/28 AZITHROMYCIN 250 MG ORAL TABLET 191647 AZITHROMYCIN Inactive PREDNISONE 20 MG ORAL TABLET 2 tabs daily for 3 days, 1 tab daily for 3 days, 1/2 tab daily for 2 days PREDNISONE 20 MG ORAL TABLET 596108 PREDNISONE Inactive TRIAMCINOLONE ACETONIDE 0.1 % EXTERNAL OINTMENT Apply to affected areas TID for up to 2 weeks TRIAMCINOLONE ACETONIDE 0.1 % EXTERNAL OINTMENT 0954756 TRIAMCINOLONE ACETONIDE Inactive AUGMENTIN 875-125 MG ORAL TABLET 1 po BID x 10 days AUGMENTIN 875-125 MG ORAL TABLET 388659 AMOXICILLIN-POT CLAVULANATE Inactive Immunizations Vaccine Administration Date Value Standard Description pneumococcal immunization administered Pneumovax 23 [CVX33] pneumococcal polysaccharide vaccine, 23 valent Vital Signs Date Name Value Unit Range Description blood pressure, diastolic 61 mm[Hg] BP castillo blood pressure, systolic 124 mm[Hg] BP sys height E&M 66.5 [in_us] Bdy height pulse rate E&M 95 /min Heart rate temperature E&M 98.4 [degF] Body temperature weight E&M 223.5 [lb_av] Weight Measured blood pressure, diastolic 68 mm[Hg] BP castillo blood pressure, systolic 142 mm[Hg] BP sys height E&M 66.5 [in_us] Bdy height pulse rate E&M 99 /min Heart rate temperature E&M 97.9 [degF] Body temperature weight E&M 221 [lb_av] Weight Measured blood pressure, diastolic 59 mm[Hg] BP castillo blood pressure, systolic 122 mm[Hg] BP sys pulse rate E&M 93 /min Heart rate temperature E&M 97.1 [degF] Body temperature weight E&M 226 [lb_av] Weight Measured blood pressure, diastolic 64 mm[Hg] BP castillo blood pressure, systolic 134 mm[Hg] BP sys height E&M 66.5 [in_us] Bdy height pulse rate E&M 66 /min Heart rate temperature E&M 97.5 [degF] Body temperature weight E&M 222.5 [lb_av] Weight Measured blood pressure, diastolic 65 mm[Hg] BP castillo [...] temperature weight E&M 212.7 [lb_av] Weight Measured Diagnostic Results Date Name [...] Peptide - Chemistry sodium, serum 142 mmol/L 555-629 5111/07/18 potassium, serum 5.0 mmol/L 3.5-5.2 chloride, serum 107 mmol/L 98-107 carbon dioxide, venous blood 28.2 mmol/L 21.0-32.0 blood glucose 117 mg/dL 65-110 calcium, serum 9.1 mg/dL 8.5-10.1 urea nitrogen, blood 51 mg/dL 7-18 creatinine, serum 2.47 mg/dL 0.60-1.30 Lab Report: CBC - Hematology leukocyte count, blood 9.3 10^3/MM^3 10*3/mm3 4.6-10.2 erythrocyte (RBC) count 4.14 10^6/MM^3 10*6/mm3 4.50-6.50 hemoglobin, blood 12.7 g/dL 14.0-18.0 hematocrit, blood 40.4 % 40.0-54.0 mean corpuscular volume, RBC 97 fL 80-97 mean corpuscular hemoglobin, RBC 30.6 pg 27.0-31.2 mean corpuscular hemoglobin concentration, RBC 31.4 G/DL % 31.8- 35.4 red blood cell distribution width 12.8 % 11.6-14.8 platelet count 192 10^3/MM^3 10*3/mm3 142-424 Lab Report: CBC, Comp. Metabolic Panel, HGBA1C, Erythrocyte Sed Rate - Chemistry sodium, serum 142 mmol/L 668-056 5412/02/27 carbon dioxide, venous blood 26.2 mmol/L 21.0-32.0 potassium, serum 5.3 mmol/L 3.5-5.2 chloride, serum 104 mmol/L 98-107 blood glucose 236 mg/dL 65-110 urea nitrogen, blood 68 mg/dL 7-18 creatinine, serum 3.11 mg/dL 0.60-1.30 alanine aminotransferase (SGPT), serum 24 U/L 12-78 aspartate aminotransferase (SGOT), serum 17 U/L 15-37 calcium, serum 9.0 mg/dL 8.5-10.1 bilirubin, serum, total 0.70 mg/dL 0.00-1.00 hemoglobin A1C, blood, as % of total hemoglobin 7.2 % 4.3-6.0 Lab Report: CBC, Comp. Metabolic Panel, HGBA1C, Erythrocyte Sed Rate - Hematology leukocyte count, blood 7.6 10^3/MM^3 10*3/mm3 4.6-10.2 erythrocyte (RBC) count 3.91 10^6/MM^3 10*6/mm3 4.50-6.50 hemoglobin, blood 12.2 g/dL 14.0-18.0 hematocrit, blood 37.0 % 40.0-54.0 mean corpuscular volume, RBC 95 fL 80-97 mean corpuscular hemoglobin, RBC 31.2 pg 27.0-31.2 mean corpuscular hemoglobin concentration, RBC 32.9 G/DL % 31.8- 35.4 red blood cell distribution width 13.8 % 11.6-14.8 platelet count 178 10^3/MM^3 10*3/mm3 142-424 Lab Report: CBC, HGBA1C - Chemistry hemoglobin [...] Panel - Chemistry sodium, serum 140 mmol/L 416-708 1562/07/13 carbon dioxide, venous blood 23.7 mmol/L 21.0-32.0 potassium, serum 5.4 mmol/L 3.5-5.2 chloride, serum 106 mmol/L 98-107 blood glucose 156 mg/dL 65-110 urea nitrogen, blood 53 mg/dL 7-18 creatinine, serum 2.61 mg/dL 0.60-1.30 alanine aminotransferase (SGPT), serum 20 U/L 12-78 aspartate aminotransferase (SGOT), serum 17 U/L 15-37 calcium, serum 9.1 mg/dL 8.5-10.1 bilirubin, serum, total 0.50 mg/dL 0.00-1.00 Lab Report: Comp. Metabolic Panel, Thyroid Stimulating Hormone (L), Free ... - Chemistry protein, total urine random Negative mg/dL Negative RBC, urine, dipstick Negative Negative sodium, serum 142 mmol/L 338-226 0028/01/08 carbon dioxide, venous blood 23.9 mmol/L 21.0-32.0 potassium, serum 5.5 mmol/L 3.5-5.2 chloride, serum 106 mmol/L 98-107 blood glucose 266 mg/dL 65-110 urea nitrogen, blood 69 mg/dL 7-18 creatinine, serum 3.11 mg/dL 0.60-1.30 alanine aminotransferase (SGPT), serum 26 U/L -78 aspartate aminotransferase (SGOT), serum 23 U/L 15-37 calcium, serum 8.6 mg/dL 8.5-10.1 bilirubin, serum, total 0.70 mg/dL 0.00-1.00 TSH 2.59 m[iU]/mL 0.36-3.74 thyroxine, serum, free 0.88 ng/dL 0.59-1.17 Lab Report: Comp. Metabolic Panel, Thyroid Stimulating Hormone (L), Free ... - Urinalysis urine color Yellow Colorless;Lightyellow;Straw;Yellow appearance, urine Clear Clear specific gravity, urine 1.015 1.000-1.030 pH, urine, semiquantitative 5.0 5.0-8.5 urobilinogen, urine, semiquantitative (dipstick) 0.2 E.U./dL Normal leukocyte esterase, urine, by dipstick Negative Negative nitrite, urine, semiquantitative Negative Negative glucose, urine, semiquantitative Negative Negative ketones, urine, by test strip Negative Negative bilirubin, urine Negative Negative Lab Report: HGBA1C - Chemistry hemoglobin A1C, blood, as % of total hemoglobin 7.8 % 4.3-6.0 Lab Report: MIKAELA INFLUENZA A/B - Toxicology rapid flu test Negative Negative;Positive Encounters Code Encounter Date Provider Facility CPT-32398 Level 3 Est. Patient 11:36:15 CDT Simon Castillo MD [facility] CPT-94982 Level 4 Est. Patient 14:06:23 FISHER EEL [address] Castillo [facility] CPT-18640 Level 3 Est. Patient 12:04:38 FISHER EEL Giles Tatum [facility] CPT-91575 Level 3 Est. Patient 11:57:09 FISHER EEL Giles Tatum [facility] CPT-94097 Level 3 Est. Patient 11:48:57 FISHER EEL Giles Tatum [facility] CPT-34389 Level 4 Est. Patient 09:54:36 CDT Simon Castillo MD [facility] CPT-47180 Level 4 Est. Patient 08:48:[address] [facility] CPT-55444 Level 4 Est. Patient 09:54:08 CDT Simon Castillo MD [facility] CPT-91369 Level 4 Est. Patient 16:11:23 CDT Simon Castillo MD [facility] CPT-14578 Level 4 Est. Patient 09:29:28 FISHER EEL Simon Castillo MD [facility] CPT-19160 Level 3 Est. Patient 09:18:25 CDT Simon Castillo MD [facility] CPT-48642 Level 4 Est. Patient 11:51:23 CDT Simon Castillo MD [facility] CPT-28131 Level 4 Est. Patient 14:32:04 CDT Neto Oseha DO [facility] CPT-16203 Level 3 Est. Patient 08:41:43 CDT Giles Tatum [facility] CPT-65530 Level 3 Est. Patient 08:40:53 CDT Jillina Nashzell [facility] CPT-02842 Level 3 Est. Patient 08:36:52 CDT Jillina Nashzell [facility] CPT-04562 Level 3 Est. Patient 09:08:44 CDT Jilltriston Salcidol [facility] CPT-21023 Level 4 Est. Patient 09:17:32 FISHER EEL Simon Castillo MD [facility] CPT-09097 Level 3 Est. Patient 11:22:22 FISHER EEL Simon Castillo MD [facility] CPT-51845 Level 3 Est. Patient 09:02:14 CDT Simon Castillo MD [facility] CPT-98160 Level 4 Est. Patient 08:47:25 CDT Simon Castillo MD [facility] CPT-58813 Level 4 Est. Patient 10:17:25 CDT Simon Castillo MD [facility] CPT-58477 Level 4 Est. Patient 10:10:09 FISHER EEL Simon Castillo MD [facility] CPT-05362 Level 4 Est. Patient 11:48:19 CDT Simon Castillo MD [facility] CPT-95774 Level 4 Est. Patient 08:59:29 CDT Simon Castillo MD [facility] CPT-03827 Level 4 Est. Patient 10:52:51 FISHER EEL Simon Castillo MD [facility] CPT-43081 Level 4 Est. Patient 11:50:30 CDT Simon Castillo MD [facility] CPT-32473 Level 4 Est. Patient 09:54:46 CDT Simon Castillo MD [facility] CPT-77390 Level 3 Est. Patient 11:10:14 CDT Simon Castillo MD [facility] CPT-06494 Level 4 Est. Patient 09:44:02 CDT Simon Castillo MD [facility] CPT-88345 Level 3 Est. Patient 09:27:48 CDT Simon Castillo MD [facility] CPT-15576 Level 3 Est. Patient 09:58:06 FISHER EEL Simon Castillo MD [facility] CPT-83193 Level 3 Est. Patient 09:51:35 CDT Simon Castillo MD [facility] Procedures Code Procedure Name Date Entry Date Standard Description CPT-73656 EKG Trac and Interp - XRAY USE ONLY 12:19:18 FISHER EEL 09/29 CPT-30325 Chest, 2 views 12:19:17 FISHER EEL CPT-Cryo Cryotherapy 09:54:37 CDT CPT-36998 First Vx - Ix admin for Medicare patients 09:13:10 CDT CPT-60965 Fluzone High-Dose Intramuscular Suspension 09:13:10 CDT CPT-G0439 [facility] Annual Wellness Exam 09:41:17 CDT CPT-06722 Lipid - LAB USE ONLY 17:15:33 CDT CPT-88060 HGBA1C - LAB USE ONLY 17:15:33 CDT CPT-88378 CMP - LAB USE ONLY 17:15:33 CDT CPT-09636 Venipuncture Draw Fee 17:15:33 CDT CPT-TCM Transitional Care Mgmt-High 11:01:28 FISHER EEL CPT-16736 First Vx - Ix admin for Medicare patients 17:33:39 CDT CPT-82441 Fluzone High-Dose Intramuscular Suspension 17:33:39 CDT CPT-G0438 Initial Annual Wellness Exam 08:57:30 CDT CPT-26352 Chest 2V Frontal and Lat - XRAY USE ONLY 09:00:14 CDT CPT-12120 Venipuncture Draw Fee 13:33:02 CDT CPT-38983 Bone Density 09:37:49 FISHER EEL CPT-58620 Fluzone High Dose 17:20:42 CDT CPT-44713 Prevnar 13 17:20:42 CDT CPT-23257 Administration 2+ single or combination vaccines inc oral 17:20:42 CDT CPT-27700 Administration single or combination vaccine inc oral 17 :20:42 CDT CPT-55952 Hand comp min 3V 09:24:38 CDT CPT-96527 Venipuncture Draw Fee 08:07:29 FISHER EEL CPT-61082 Venipuncture Draw Fee 09:02:51 FISHER EEL CPT-45206 Venipuncture Draw Fee 12:45:08 FISHER EEL CPT-15016 Venipuncture Draw Fee 09:25:31 CDT CPT-G0008 Administration of Influenza Virus Vaccine 14:41:29 CDT CPT-33015 Fluzone High-Dose Intramuscular Suspension 14:41:29 CDT CPT-Cryo Cryotherapy 11:48:20 CDT CPT-74813 EKG Trac and Interp 09:21:58 CDT CPT-86416 Chest 2V Frontal and Lat 09:21:58 CDT CPT-Cryo Cryotherapy 10:54:51 FISHER EEL CPT-19940 Administration 2+ single or combination vaccines inc oral 10:42:19 CDT CPT-58615 Administration single or combination vaccine inc oral 10 :42:19 CDT CPT-60790 Pneumovax 10:42:19 CDT CPT-66764 Influenza High Dose age 65+ 10:42:19 CDT CPT-48387 Administration single or combination vaccine inc oral 13 :18:54 CDT CPT-02483 Influenza High Dose age 65+ 13:18:54 CDT CPT-49750 Venipuncture Draw Fee 11:53:16 CDT CPT-48714 LS spine comp w obliq 11:03:13 CDT CPT-Cryo Cryotherapy 08:27:16 FISHER EEL CPT-31228 Administration single or combination vaccine inc oral 10 :56:34 CDT CPT-90611 Influenza High Dose age 65+ 10:56:34 CDT
--- OUTSIDE RECORDS SUMMARY | 2018-03-31 16:04 | XMS REPORT | Clinical Summary ---
Author Author Admin, E Organization [facility] Address Unknown Phone Unavailable Allergies, Adverse Reactions, Alerts Allergy Name Reaction Description Start Date Severity Status Provider No Known Allergies 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 operator V58.65 Resolved Simon Castillo MD Long-term (current) use of steroids Hand pain, bilateral 729.5 Resolved Simon Castillo MD Pain in limb Carpal tunnel syndrome, bilateral 354.0 Active Simon Castillo MD Carpal tunnel syndrome Osteopenia 733.90 Active Simon Castillo MD Disorder of bone and cartilage, 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 Rosy Eddy RMA Rheumatoid arthritis Pharyngitis 462 Active 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 Acute pharyngitis Dyspnea 786.09 Active 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 Other dyspnea and respiratory abnormality Peripheral edema 782.3 Active 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 Edema 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 Simon Castillo MD Other specified erythematous conditions FH DIABETES ICD-V18.0 Inactive Simon Castillo MD FH LUNG CANCER ICD-V16.1 Inactive Simon Castillo MD ABDOMINAL TENDERNESS ICD-789.60 Inactive Simon Castillo MD CHEST WALL PAIN, HX OF ICD-V15.89 Inactive Simon Castillo MD SEBORRHEIC KERATOSIS ICD-702.19 Inactive Simon Castillo MD BRONCHITIS, ACUTE ICD-466.0 Inactive Simon Castillo MD ABDOMINAL PAIN RIGHT LOWER QUADRANT ICD-789.03 Inactive Simon Castillo MD SCIATICA ICD-724.3 Inactive Simon Castillo MD 2012 BENIGN PROSTATIC HYPERTROPHY, MILD, HX OF ICD-V13.89 Inactive Simon Castillo MD Obesity ICD-278.00 Inactive Simon Castillo MD 2013 Chest pain ICD-786.50 Inactive Simon Castillo MD Cough ICD-786.2 Inactive Simon Castillo MD Bronchitis, acute ICD-466.0 Inactive Simon Castillo MD Tinea pedis ICD-110.4 Inactive Simon Castillo MD Hand pain, bilateral ICD-729.5 Inactive Simon Castillo MD SINUSITIS, ACUTE ICD-461.9 Inactive Simon Castillo MD Hand pain, bilateral ICD-729.5 Inactive Simon Castillo MD Steroid use, terminal makeup operator ICD-V58.65 Inactive Simon Castillo MD Medication List Medication Instructions Start Date Stop Date Generic Name NDC Status Provider Patient Instruction TRIAMCINOLONE ACETONIDE 0.1 % OINT Apply to affected areas TID for up to 2 weeks TRIAMCINOLONE ACETONIDE 32600319174 No Longer Active Simon Castillo MD Active LASIX 20 MG TAB 1 tablet by mouth daily x 2 days FUROSEMIDE 02308423357 No Longer Active Simon Castillo MD Active SULFASALAZINE 500 MG ORAL TBEC 2 tabs BID SULFASALAZINE 23585598665 No Longer Active Neto Oshea DO Active PREDNISONE 20 MG TAB 2 tabs daily for 3 days, 1 tab daily for 3 days, 1/2 tab daily for 2 days PREDNISONE 55629938801 No Longer Active Jillina Frazelalejandrina HEMPHILL Active PREDNISONE 20 MG TAB 1 tablet daily for airway inflammation 02/25 PREDNISONE 73433875045 No Longer Active 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 CLARITIN 10 MG TAB 1 tablet by mouth daily as needed for allergies LORATADINE 91085562149 Active Jillina Lolyl ROLL PLUGGER MACHINE 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 AZITHROMYCIN 250 MG TABS 2 po qd x 1 day, then 1 po qd x 4 days AZITHROMYCIN 25930589193 No Longer Active 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 GLIMEPIRIDE 2 MG ORAL TABS 1 po q a.m. GLIMEPIRIDE 05877064376 Active Simon Castillo MD Active HYDROCODONE-ACETAMINOPHEN 5-325 MG TABS 1 tab by mouth 8 hours as needed for pain HYDROCODONE-ACETAMINOPHEN 26446592200 Active Simon Castillo MD Active TRAMADOL HCL 50 MG TABS 1 po q6hr PRN Pain TRAMADOL HCL 98638039616 No Longer Active Simon Castillo MD Active PREDNISONE 5 MG TAB 1-2 tabs daily for rheumatoid arthritis PREDNISONE 27634964746 Active Simon Castillo MD Active PREDNISONE 5 MG TABS 1 po qod PREDNISONE 59574445207 No Longer Active Simon Castillo MD Active SYMBICORT 160-4.5 MCG/ACT AERO 2 puff BID BUDESONIDE- FORMOTEROL FUMARATE 22256280086 No Longer Active Simon Castillo MD Active FLONASE 50 MCG/ACT SUSP 2 puffs in each nostril daily FLUTICASONE PROPIONATE 03740979999 No Longer Active Simon Castillo MD Active PREDNISONE 20 MG TAB 2 tabs daily for 5 days, then 1 daily for 5 days PREDNISONE 72068460740 No Longer Active Simon Castillo MD Active PREDNISONE 20 MG TAB 2 tabs daily for 5 days, then 1 daily for 5 days, then 0.5 for 4 days PREDNISONE 29778154952 No Longer Active Simon Castillo MD Active CLOTRIMAZOLE 1 % EXT CREA Apply to affected area of feet twice daily PRN Rash CLOTRIMAZOLE 84475565368 Active Simon Castillo MD Active PREDNISONE 20 MG TAB 2 tabs daily for 3 days, 1 tab daily for 3 days, 1/2 tab daily for 2 days PREDNISONE 17150703647 No Longer Active Simon Castillo MD Active AZITHROMYCIN 250 MG TABS 2 po qd x 1 day, then 1 po qd x 4 days AZITHROMYCIN 79788643172 No Longer Active Simon Castillo MD Active LISINOPRIL 10 MG TABS 1 tablet by mouth daily LISINOPRIL 47293677523 Active Simon aCstillo MD Active CARVEDILOL 6.25 MG TABS 1 po BID CARVEDILOL 56319259968 Active Simon Castillo MD Active LISINOPRIL-HYDROCHLOROTHIAZIDE 20-12.5 MG TABS 1/2 tab by mouth daily LISINOPRIL-HYDROCHLOROTHIAZIDE 56725046536 No Longer Active Simon Castillo MD Active TRAMADOL HCL 50 MG TABS 1-2 tablets every 6 hours as needed for pain TRAMADOL HCL 62002817962 Active Giles Tatum APRN Active PREDNISONE 5 MG TAB Take one po qod PREDNISONE 30159604484 No Longer Active Simon Castillo MD Active GLYBURIDE 5 MG TAB Take one by mouth daily GLYBURIDE 93710758364 No Longer Active Simon Castillo MD Active LEVAQUIN 750 MG TABS 1 po qod x 5 doses LEVOFLOXACIN 56301034428 No Longer Active Simon Castillo MD Active CETIRIZINE HCL 10 MG TABS 1 po qd as needed for allergies CETIRIZINE HCL 50516989273 No Longer Active Simon Castillo MD Active FISH OIL 1000 MG CPDR 1 pill by mouth twice daily for cholesterol OMEGA -3 FATTY ACIDS 02828668709 Active Simon Castillo MD Active BILBERRY CAPS 1 tab daily BILBERRY (VACCINIUM MYRTILLUS) CAPS 12500634251 Active Simon Castillo MD Active ATENOLOL 50 MG TABS Take one by mouth daily ATENOLOL 11535403583 No Longer Active Simon Castillo MD Active FLONASE 50 MCG/ACT SUSP 2 puffs in each nostril daily FLUTICASONE PROPIONATE 27714415140 No Longer Active Simon Castillo MD Active GLYBURIDE 5 MG TAB Take one by mouth daily GLYBURIDE 35535259886 No Longer Active Simon Castillo MD Active SYMBICORT 80-4.5 MCG/ACT AERO 2 puffs twice a day BUDESONIDE-FORMOTEROL FUMARATE 86145290458 No Longer Active Simon Castillo MD Active PREDNISONE 20 MG TAB 2 tabs daily for 4 days, 1 tab daily for 4 days, 1/2 tab daily for 4 days PREDNISONE 62650946129 No Longer Active Simon Castillo MD Active AMOXICILLIN 500 MG CAPS 2 po BID x 10 days AMOXICILLIN 22237405399 No Longer Active Simon Castillo MD Active METFORMIN HCL 1000 MG TABS 1 by mounth twice a day METFORMIN HCL 27940563646 No Longer Active Simon Castillo MD Active LUTEIN-ZEAXANTHIN 6-1 MG TABS Take 2 by mouth daily LUTEIN-ZEAXANTHIN 89720605221 Active Simon Castillo MD Active IBUPROFEN 800 MG TABS Take 1 tab every 6 hrs prn IBUPROFEN 01620412030 No Longer Active Simon Castillo MD Active GLYBURIDE 2.5 MG TABS Take one by mouth daily GLYBURIDE 27327822863 No Longer Active Simon Castillo MD Active LANCETS MISC 2 qd LANCETS 69779915940 Active Pamela Conde Active ACACIA CONTOUR TEST STRP Use with testing twice daily GLUCOSE BLOOD 55357479112 Active Simon Castillo MD Active ACACIA ASPIRIN 325 MG TABS Take one by mouth daily ASPIRIN 87864272042 Active Pamela Conde Active GLYBURIDE 2.5 MG TABS Take one by mouth daily GLYBURIDE 2.5 MG TABS 161901 GLYBURIDE Inactive PREDNISONE 20 MG TAB 2 tabs daily for 4 days, 1 tab daily for 4 days, 1/2 tab daily for 4 days PREDNISONE 20 MG TAB 614282 PREDNISONE Inactive SYMBICORT 80-4.5 MCG/ACT AERO 2 puffs twice a day SYMBICORT 80-4.5 MCG/ACT AERO BUDESONIDE-FORMOTEROL FUMARATE Inactive FLONASE 50 MCG/ACT SUSP 2 puffs in each nostril daily FLONASE 50 MCG/ACT SUSP FLUTICASONE PROPIONATE Inactive ATENOLOL 50 MG TABS Take one by mouth daily ATENOLOL 50 MG TABS 113193 ATENOLOL Inactive CETIRIZINE HCL 10 MG TABS 1 po qd as needed for allergies CETIRIZINE HCL 10 MG TABS 1217422 CETIRIZINE HCL Inactive LEVAQUIN 750 MG TABS 1 po qod x 5 doses LEVAQUIN 750 MG TABS 858167 LEVOFLOXACIN Inactive GLYBURIDE 5 MG TAB Take one by mouth daily GLYBURIDE 5 MG TAB 365778 GLYBURIDE Inactive PREDNISONE 5 MG TAB Take one po qod PREDNISONE 5 MG TAB 341997 PREDNISONE Inactive PREDNISONE 20 MG TAB 2 tabs daily for 5 days, then 1 daily for 5 days PREDNISONE 20 MG TAB 457204 PREDNISONE Inactive FLONASE 50 MCG/ACT SUSP 2 puffs in each nostril daily FLONASE 50 MCG/ACT SUSP FLUTICASONE PROPIONATE Inactive SYMBICORT 160-4.5 MCG/ACT AERO 2 puff BID SYMBICORT 160-4.5 MCG/ACT AERO BUDESONIDE-FORMOTEROL FUMARATE Inactive PREDNISONE 5 MG TABS 1 po qod PREDNISONE 5 MG TABS 604807 PREDNISONE Inactive PREDNISONE 20 MG TAB 1 tablet daily for airway inflammation 02/25 PREDNISONE 20 MG TAB 386764 PREDNISONE Inactive SULFASALAZINE 500 MG ORAL TBEC 2 tabs BID SULFASALAZINE 500 MG ORAL TBEC 576413 SULFASALAZINE Inactive LASIX 20 MG TAB 1 tablet by mouth daily x 2 days LASIX 20 MG TAB 902191 FUROSEMIDE Inactive AMOXICILLIN 500 MG CAPS 2 po BID x 10 days AMOXICILLIN 500 MG CAPS 430321 AMOXICILLIN Inactive GLYBURIDE 5 MG TAB Take one by mouth daily GLYBURIDE 5 MG TAB 128856 GLYBURIDE Inactive AZITHROMYCIN 250 MG TABS 2 po qd x 1 day, then 1 po qd x 4 days AZITHROMYCIN 250 MG TABS 7975369 AZITHROMYCIN Inactive PREDNISONE 20 MG TAB 2 tabs daily for 3 days, 1 tab daily for 3 days, 1/2 tab daily for 2 days PREDNISONE 20 MG TAB 501178 PREDNISONE Inactive PREDNISONE 20 MG TAB 2 tabs daily for 5 days, then 1 daily for 5 days, then 0.5 for 4 days PREDNISONE 20 MG TAB 082718 PREDNISONE Inactive AZITHROMYCIN 250 MG TABS 2 po qd x 1 day, then 1 po qd x 4 days AZITHROMYCIN 250 MG TABS 7207434 AZITHROMYCIN Inactive PREDNISONE 20 MG TAB 2 tabs daily for 3 days, 1 tab daily for 3 days, 1/2 tab daily for 2 days PREDNISONE 20 MG TAB 997308 PREDNISONE Inactive TRIAMCINOLONE ACETONIDE 0.1 % OINT Apply to affected areas TID for up to 2 weeks TRIAMCINOLONE ACETONIDE 0.1 % OINT 7192665 TRIAMCINOLONE ACETONIDE Inactive Immunizations Vaccine Administration Date Value Standard Description pneumococcal immunization administered Pneumovax 23 [CVX33] pneumococcal polysaccharide vaccine, 23 valent Vital Signs Date Name Value Unit Range Description blood pressure, diastolic - 8462-4 74 mm[Hg] [...] E&M - 3141-9 211 [lb_av] Weight Measured blood pressure, diastolic - 8462-4 68 mm[Hg] BP castillo blood pressure, systolic - 8480-6 134 mm[Hg] BP sys pulse rate E&M - 8867-4 61 /min Heart rate temperature E&M 96.5 [degF] Body temperature weight E&M - 3141-9 211.5 [lb_av] Weight Measured Diagnostic Results Date Name Value Unit Range Description Lab Report: CBC W/DIFF, Comp. Metabolic Panel - Chemistry sodium, serum 137 mmol/L 014-449 8271/06/06 carbon dioxide, venous blood 24.9 mmol/L 21.0-32.0 [...] leukocyte count, blood 7.4 10^3/MM^3 10*3/mm3 4.6-10.2 neutrophils as percent of blood leukocytes 62.2 % 42.2-75.2 monocytes as percent of blood leukocytes 11.1 % 1.7-9.3 lymphocytes as percent of blood leukocytes 21.5 % 20.5-51.1 erythrocyte (RBC) count 4.35 10^6/MM^3 10*6/mm3 4.69-6.13 hemoglobin, blood 13.4 g/dL 13.5-17.5 hematocrit, blood 41.1 % 41.0-53.0 mean corpuscular volume, RBC 95 fL 80-97 mean corpuscular hemoglobin, RBC 30.8 pg 27.0-31.2 mean corpuscular hemoglobin concentration, RBC 32.6 G/DL % 31.8- 35.4 red blood cell distribution width 15.5 % 11.6-14.8 platelet count 210 10^3/MM^3 10*3/mm3 142-424 Lab Report: CBC, Comp. Metabolic Panel - Chemistry sodium, serum 139 mmol/L 345-469 8794/03/17 carbon dioxide, venous blood 29.0 mmol/L 21.0-32.0 [...] Report: CBC, Comp. Metabolic Panel - Hematology leukocyte count, blood 10.9 10^3/MM^3 10*3/mm3 4.6-10.2 erythrocyte (RBC) count 4.56 10^6/MM^3 10*6/mm3 4.69-6.13 hemoglobin, blood 13.6 g/dL 13.5-17.5 hematocrit, blood 42.0 % 41.0-53.0 mean corpuscular volume, RBC 92 fL 80-97 mean corpuscular hemoglobin, RBC 29.9 pg 27.0-31.2 mean corpuscular hemoglobin concentration, RBC 32.5 G/DL % 31.8- 35.4 red blood cell distribution width 15.4 % 11.6-14.8 platelet count 283 10^3/MM^3 10*3/mm3 142-424 Lab Report: HGBA1C, Basic Metabolic Panel - Chemistry hemoglobin A1C, blood, as % of total hemoglobin 8.5 % 4.3-6.0 sodium, serum 137 mmol/L 864-166 1664/02/12 potassium, serum 5.1 mmol/L 3.5-5.2 chloride, serum 103 mmol/L 98-107 carbon dioxide, venous blood 24.4 mmol/L 21.0-32.0 blood glucose 261 mg/dL 65-110 calcium, serum 9.0 mg/dL 8.5-10.1 urea nitrogen, blood 44 mg/dL 7-18 creatinine, serum 2.37 mg/dL 0.55-1.30 Lab Report: Uric Acid - Chemistry uric acid, serum 6.3 mg/dL 2.6-7.2 Encounters Code Encounter Date Provider Facility CPT-05219 Level 3 Est. Patient 09:18:25 CDT Simon Castillo MD [facility] CPT-04321 Level 4 Est. Patient 11:51:23 CDT Simon Castillo MD [facility] CPT-63075 Level 4 Est. Patient 14:32:04 CDT Neto Oshea DO [facility] CPT-71682 Level 3 Est. Patient 08:41:43 CDT Giles Tatum APRN [facility] CPT-55280 Level 3 Est. Patient 08:40:53 CDT 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 [facility] CPT-16794 Level 3 Est. Patient 08:36:52 CDT Jonathanmeli Nashtico [facility] CPT-90704 Level 3 Est. Patient 09:08:44 CDT Giles Nashtico [facility] CPT-75698 Level 4 Est. Patient 09:17:32 FOOD PORTER Simon Castillo MD [facility] CPT-40762 Level 3 Est. Patient 11:22:22 FOOD PORTER Simon Castillo MD [facility] CPT-56687 Level 3 Est. Patient 09:02:14 CDT Simon Castillo MD [facility] CPT-14514 Level 4 Est. Patient 08:47:25 CDT Simon Castillo MD [facility] CPT-03403 Level 4 Est. Patient 10:17:25 CDT Simon Castillo MD [facility] CPT-62680 Level 4 Est. Patient 10:10:09 FOOD PORTER Simon Castillo MD [facility] CPT-17837 Level 4 Est. Patient 11:48:19 CDT Simon Castillo MD [facility] CPT-13811 Level 4 Est. Patient 08:59:29 CDT Simon Castillo MD [facility] CPT-16295 Level 4 Est. Patient 10:52:51 FOOD PORTER Simon Castillo MD [facility] CPT-43616 Level 4 Est. Patient 11:50:30 CDT Simon Castillo MD [facility] CPT-20499 Level 4 Est. Patient 09:54:46 CDT Simon Csatillo MD [facility] CPT-36547 Level 3 Est. Patient 11:10:14 CDT Simon Castillo MD [facility] CPT-82770 Level 4 Est. Patient 09:44:02 CDT Simon Castillo MD [facility] CPT-85275 Level 3 Est. Patient 09:27:48 CDT Simon Castillo MD [facility] CPT-77320 Level 3 Est. Patient 09:58:06 FOOD PORTER Simon Castillo MD [facility] CPT-34430 Level 3 Est. Patient 09:51:35 CDT Simon Castillo MD [facility] Procedures Code Procedure Name Date Entry Date Standard Description CPT-71661 First Vx - Ix admin for Medicare patients 17:33:39 CDT CPT-70927 Fluzone High-Dose Intramuscular Suspension 17:33:39 CDT CPT-G0438 Initial Annual Wellness Exam 08:57:30 CDT CPT-63930 Chest 2V Frontal and Lat - XRAY USE ONLY 09:00:14 CDT CPT-62008 Venipuncture Draw Fee 13:33:02 CDT CPT-18024 Bone Density 09:37:49 FOOD PORTER CPT-16859 Fluzone High Dose 17:20:42 CDT CPT-67320 Prevnar 13 17:20:42 CDT CPT-44451 Administration 2+ single or combination vaccines inc oral 17:20:42 CDT CPT-55053 Administration single or combination vaccine inc oral 17 :20:42 CDT CPT-41834 Hand comp min 3V 09:24:38 CDT CPT-13626 Venipuncture Draw Fee 08:07:29 FOOD PORTER CPT-12776 Venipuncture Draw Fee 09:02:51 FOOD PORTER CPT-08104 Venipuncture Draw Fee 12:45:08 FOOD PORTER CPT-80200 Venipuncture Draw Fee 09:25:31 CDT CPT-G0008 Administration of Influenza Virus Vaccine 14:41:29 CDT CPT-33684 Fluzone High-Dose Intramuscular Suspension 14:41:29 CDT CPT-Cryo Cryotherapy 11:48:20 CDT CPT-11398 EKG Trac and Interp 09:21:58 CDT CPT-91035 Chest 2V Frontal and Lat 09:21:58 CDT CPT-Cryo Cryotherapy 10:54:51 FOOD PORTER CPT-63567 Administration 2+ single or combination vaccines inc oral 10:42:19 CDT CPT-32557 Administration single or combination vaccine inc oral 10 :42:19 CDT CPT-47594 Pneumovax 10:42:19 CDT CPT-50261 Influenza High Dose age 65+ 10:42:19 CDT CPT-88587 Administration single or combination vaccine inc oral 13 :18:54 CDT CPT-20868 Influenza High Dose age 65+ 13:18:54 CDT CPT-09757 Venipuncture Draw Fee 11:53:16 CDT CPT-96176 LS spine comp w obliq 11:03:13 CDT CPT-Cryo Cryotherapy 08:27:16 FOOD PORTER CPT-19627 Administration single or combination vaccine inc oral 10 :56:34 CDT CPT-03045 Influenza High Dose age 65+ 10:56:34 CDT
--- NOTE | 2018-03-31 16:05 | ED Cardiac General ---
History of Present Illness General Chief Complaint: Chest Pain Stated Complaint: CP Nursing Triage Note: PT TO RM 7 BY [facility] WITH CC OF CHEST PAIN. Source: patient, EMS, EMS notes reviewed Exam Limitations: no limitations History of Present Illness Date Seen by Provider: Mar 31, 2018 Time Seen by Provider: 16:02 Initial Comments Patient is an 87-year-old male who is brought into the emergency room by [facility] from via [facility]. The patient reported that he had mid-substernal chest pain that radiated to his back and shortness of breath 30 minutes prior to arrival. Timing/Duration: 1/2 hour Severity: mild Location: substernal, back Activities at Onset: none NTG SL E COMMERCE SPECIALIST: No ASA po E COMMERCE SPECIALIST: No Associated Systoms: Chest Pain Allergies and Home Medications Allergies Coded Allergies: No Known Drug Allergies (Unverified , 03/31/18) Home Medications Acetaminophen 325 Mg Tablet, 650 MG PO Q4H PRN for PAIN-MILD, (Reported) TAKES 2 (325MG) TABLETS Apixaban 2.5 Mg Tablet, 2.5 MG PO Q12H, (Reported) Bisacodyl 10 Mg Supp.rect, 10 MG RC DAILY PRN for CONSTIPATION-4TH LINE, ( Reported) Bumetanide 1 Mg Tablet, 1 MG PO SuMoWeFr, (Reported) Cetirizine HCl 10 Mg Tablet, 10 MG PO DAILY, (Reported) Docusate Sodium 100 Mg Capsule, 100 MG PO DAILY, (Reported) Ergocalciferol (Vitamin D2) 50,000 Unit Capsule, 50,000 UNIT PO Tu, (Reported) Flecainide Acetate 50 Mg Tablet, 50 MG PO DAILY, (Reported) Glimepiride 4 Mg Tablet, 4 MG PO BID, (Reported) Hydrocortisone Acetate 25 Mg Supp.rect, 25 MG RC Q4H PRN for HEMORRHOIDS, ( Reported) Insulin Determir 1,000 Units/10 Ml Soln, 4 UNITS SQ BID, (Reported) Magnesium Hydroxide 400 Mg/5 Ml Oral.susp, 30 ML PO DAILY PRN for CONSTIPATION- 7TH LINE, (Reported) Melatonin 3 Mg Tablet, 6 MG PO HS, (Reported) Na Phos,M-B/Na Phos,Di-Ba 133 Ml Enema, RC DAILY PRN for IN NO RESULTS FROM SUPP IN 4HR, (Reported) Ondansetron 4 Mg Tab.rapdis, 4 MG SL Q6H PRN for NAUSEA/VOMITING-1ST LINE, ( Reported) Pioglitazone HCl 30 Mg Tablet, 30 MG PO DAILY, (Reported) Prednisone 5 Mg Tablet, 5 MG PO BID, (Reported) Tamsulosin HCl 0.4 Mg Cap.er.24h, 0.4 MG PO DAILY, (Reported) Patient Home Medication List Home Medication List Reviewed: Yes Review of Systems Constitutional: see HPI; No chills, No diaphoresis, No dizziness EENTM: See HPI; No Eye Pain, No Nose Pain, No Throat Pain Respiratory: See HPI; Denies Cough; Shortness of Air Cardiovascular: See HPI, Chest Pain Gastrointestinal: See HPI; Denies Abdomen Distended, Denies Abdominal Pain Genitourinary: See HPI; Denies Burning, Denies Discharge Musculoskeletal: see HPI; No back pain, No gout, No joint pain Skin: see HPI; No change in color, No change in hair/nails Psychiatric/Neurological: See HPI; Denies Anxiety, Denies Depressed Endocrine: See HPI; Denies Excessive Sweating, Denies Flushing Hematologic/Lymphatic: See HPI; Denies Anemia All Other Systems Reviewed Negative Unless Noted: Yes Past Vzaxoru-Objqpy-Wnitaz Hx Past Med/Social Hx: Reviewed Nursing Past Med/Soc Hx Patient Social History Recent Foreign Travel: No Contact w/Someone Who Travel: No Recent Infectious Disease Expo: No Family Medical History Reviewed Nursing Family Hx Physical Exam Vital Signs Vital Signs - First Documented 03/31/18 15:55 Temp 98.2 Pulse 113 Resp 21 B/P (MAP) 144/67 (92) Pulse Ox 94 O2 Delivery Room Air Capillary Refill : Less Than 3 Seconds Height, Weight, BMI Height: 5', 7.00" Weight: 200lbs oz, 90.240234un Method:Stated ,BMI General Appearance: No Apparent Distress, WD/WN HEENT: PERRL/EOMI, TMs Normal, Normal ENT Inspection, Pharynx Normal Neck: Full Range of Motion, Normal Inspection, Non Tender, Supple Respiratory: Chest Non Tender, Lungs Clear, Normal Breath Sounds, No Accessory Muscle Use, No Respiratory Distress Cardiovascular: Regular Rate, Rhythm, No Edema, No Gallop, No JVD, No Murmur, Normal Peripheral Pulses Gastrointestinal: Normal Bowel Sounds, No Organomegaly, No Pulsatile Mass, Non Tender, Soft Extremity: Normal Capillary Refill, Normal Inspection, Normal Range of Motion, Non Tender, No Calf Tenderness Neurologic/Psychiatric: Alert, Oriented x3, No Motor/Sensory Deficits Skin: Normal Color, Warm/Dry, Other (patient does have dialysis port in his right upper chest area.) Lymphatic: No Adenopathy Progress/Results/Core Measures Results/Orders My Orders Orders - KEANU ESPINOZA Cbc With Automated Diff (03/31/18 15:56) Magnesium (03/31/18 15:56) Chest 1 View, Ap/Pa Only (03/31/18 15:56) Cardiac Profile 1 (03/31/18 15:56) Comprehensive Metabolic Panel (03/31/18 15:56) Myoglobin Serum (03/31/18 15:56) Protime With Inr (03/31/18 15:56) Partial Thromboplastin Time (03/31/18 15:56) O2 (03/31/18 15:56) Monitor-Rhythm Ecg Trace Only (03/31/18 15:56) Lipid Panel (04/01/18 06:00) Saline Lock/Iv-Start (03/31/18 15:56) O2 (03/31/18 15:56) Saline Lock/Iv-Start (03/31/18 15:56) Aspirin Chewable Tablet (Baby Aspirin Ch (03/31/18 16:00) Nitroglycerin 0.4 Mg Btl 25's (Nitrostat (03/31/18 16:00) Vital Signs/I&O 03/31/18 15:55 Temp 98.2 Pulse 113 Resp 21 B/P (MAP) 144/67 (92) Pulse Ox 94 O2 Delivery Room Air Blood Pressure Mean: 92 Progress Progress Note : Progress Note Patient informed me that today was his last day for dialysis treatment. They report his kidney function has improved enough to stop dialysis. This is taken into consideration for his plan of care. Diagnostic Imaging Diagonstic Imaging: Xray Plain Films/CT/US/NM/MRI: chest Comments NAME: JEANMARIE CABRERA [facility] REC#: [id number] PHYSICIAN: KEANU ESPINOZA CC: KEANU ESPINOZA; JESSE MCLAUGHLIN MD Page 1 of 1 RADIOLOGY REPORT [place]IA [place] CC: KEANU ESPINOZA; JESSE MCLAUGHLIN MD Page 1 of 1 RADIOLOGY REPORT NAME: JEANMARIE CABRERA [facility] REC#: [id number] PT STATUS: ADM Shelbie : 1930 PHYSICIAN: KEANU ESPINOZA ADMIT DATE: 03/31/18/4TH Signed Date of Exam: 03/31/18 CHEST 1 VIEW, AP/PA ONLY INDICATION: Chest pain. TIME OF EXAM: 5:12 PM EXAM: No prior studies are available for comparison. FINDINGS: The heart size is normal. There is a right-sided dialysis line with tip overlying the SVC right atrial junction. Right hemidiaphragm is elevated. There appears to be some subsegmental atelectasis in the right base. Otherwise, the lungs are clear. No effusion or pneumothorax is seen. IMPRESSION: Right basilar atelectasis. No other significant abnormality is detected. Dictated by: Dictated on workstation # [id number] Dict: 03/31/181723 Trans: 03/31/181836 Interpreted by: JESSE MCLAUGHLIN MD Electronically signed by: JESSE MCLAUGHLIN MD 03/31/181836 Reviewed: Reviewed by Me Departure Communication (Admissions) Time/Spoke to Admitting Phy: 18:[address] Mcbride she agrees with plans of admission and continuing his home medications. Consult cardiology on arrival to the floor. Impression Primary Impression: Chest pain Disposition: ADMITTED INPATIENT Condition: Stable/Unchanged Admissions Decision to Admit Reason: Admit from ER (Trauma) Decision to Admit/Date: Mar 31, 2018 Time/Decision to Admit Time: 19:00 Departure-Patient Inst. Referrals: UNKNOWN (PCP) Primary Care Physician KEANU ESPINOZA Mar 31, 2018 16:05
--- OUTSIDE RECORDS SUMMARY | 2018-03-31 16:05 | XMS REPORT | Clinical Summary ---
Author Author Admin, RAFFI Organization [employer] Address Unknown Phone Unavailable Allergies, Adverse Reactions, Alerts Allergy Name Reaction Description Start Date Severity Status Provider No Known Allergies Elva Figueroa LPN Conditions or Problems Problem Name Problem Code [...] Simon Castillo MD Rheumatoid arthritis Steroid use, joint terminal attack controller V58.65 Resolved Simon Castillo MD Long-term (current) [...] Rheumatoid arthritis Pharyngitis 462 Active 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 [employer] Acute pharyngitis Dyspnea 786.09 Active 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 [employer] Other dyspnea and respiratory abnormality Peripheral edema 782.3 Active 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 [employer] Edema FH DIABETES ICD-V18.0 Inactive Simon Castillo MD [...] ICD-729.5 Inactive Simon Castillo MD Steroid use, longterm ICD-V58.65 Inactive Simon Castillo MD Hand pain, bilateral ICD-729.5 Inactive Simon Castillo MD Medication List Medication Instructions Start Date Stop Date Generic Name NDC Status Provider Patient Instruction LASIX 20 MG TAB 1 tablet by mouth daily x 2 days FUROSEMIDE 20341387124 Active Neto Oshea DO Active PREDNISONE 20 MG TAB 2 tabs daily for 3 days, 1 tab daily for 3 days, 1/2 tab daily for 2 days PREDNISONE 53685241773 Active 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 [employer] Active PREDNISONE 20 MG TAB 1 tablet daily for airway inflammation 02/25 PREDNISONE 58070190160 No Longer Active 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 [employer] Active SULFASALAZINE 500 MG ORAL TBEC 2 tabs BID SULFASALAZINE 29093750672 Active 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 [employer] Active CLARITIN 10 MG TAB 1 tablet by mouth daily as needed for allergies LORATADINE 55685402103 Active 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 [employer] Active AZITHROMYCIN 250 MG TABS 2 po qd x 1 day, then 1 po qd x 4 days AZITHROMYCIN 36467421163 No Longer Active 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 [employer] Active GLIMEPIRIDE 2 MG ORAL TABS 1 po q a.m. GLIMEPIRIDE 89615923604 Active Simon Castillo MD Active HYDROCODONE-ACETAMINOPHEN 5-325 MG TABS 1 tab by mouth 8 hours as needed for pain HYDROCODONE-ACETAMINOPHEN 26591772447 Active Simon Castillo MD Active TRAMADOL HCL 50 MG TABS 1 po q6hr PRN Pain TRAMADOL HCL 48656326096 No Longer Active Simon Castillo MD Active PREDNISONE 5 MG TAB 1-2 tabs daily for rheumatoid arthritis PREDNISONE 88429038441 Active Simon Castillo MD Active PREDNISONE 5 MG TABS 1 po qod PREDNISONE 78380741627 No Longer Active Simon Castillo MD Active SYMBICORT 160-4.5 MCG/ACT AERO 2 puff BID BUDESONIDE- FORMOTEROL FUMARATE 27619537442 No Longer Active Simon Castillo MD Active FLONASE 50 MCG/ACT SUSP 2 puffs in each nostril daily FLUTICASONE PROPIONATE 38482013739 No Longer Active Simon Castillo MD Active PREDNISONE 20 MG TAB 2 tabs daily for 5 days, then 1 daily for 5 days PREDNISONE 69351648473 No Longer Active Simon Castillo MD Active PREDNISONE 20 MG TAB 2 tabs daily for 5 days, then 1 daily for 5 days, then 0.5 for 4 days PREDNISONE 77020594148 No Longer Active Simon Castillo MD Active CLOTRIMAZOLE 1 % EXT CREA Apply to affected area of feet twice daily PRN Rash CLOTRIMAZOLE 61135671574 Active Simon Castillo MD Active PREDNISONE 20 MG TAB 2 tabs daily for 3 days, 1 tab daily for 3 days, 1/2 tab daily for 2 days PREDNISONE 11348342727 No Longer Active Simon Castillo MD Active AZITHROMYCIN 250 MG TABS 2 po qd x 1 day, then 1 po qd x 4 days AZITHROMYCIN 37626621032 No Longer Active Simon Castillo MD Active LISINOPRIL 10 MG TABS 1 tablet by mouth daily LISINOPRIL 46680609579 Active Simon Castillo MD Active CARVEDILOL 6.25 MG TABS 1 po BID CARVEDILOL 25100373056 Active Simon Castillo MD Active LISINOPRIL-HYDROCHLOROTHIAZIDE 20-12.5 MG TABS 1/2 tab by mouth daily LISINOPRIL-HYDROCHLOROTHIAZIDE 96244605899 No Longer Active Simon Castillo MD Active TRAMADOL HCL 50 MG TABS 1-2 tablets every 6 hours as needed for pain TRAMADOL HCL 80504253906 Active Giles Tatum APRN Active PREDNISONE 5 MG TAB Take one po qod PREDNISONE 36911719489 No Longer Active Simon Castillo MD Active GLYBURIDE 5 MG TAB Take one by mouth daily GLYBURIDE 06016532672 No Longer Active Simon Castillo MD Active LEVAQUIN 750 MG TABS 1 po qod x 5 doses LEVOFLOXACIN 31620919228 No Longer Active Simon Castillo MD Active CETIRIZINE HCL 10 MG TABS 1 po qd as needed for allergies CETIRIZINE HCL 85196925301 No Longer Active Simon Castillo MD Active FISH OIL 1000 MG CPDR 1 pill by mouth twice daily for cholesterol OMEGA -3 FATTY ACIDS 15792591084 Active Simon Castillo MD Active BILBERRY CAPS 1 tab daily BILBERRY (VACCINIUM MYRTILLUS) CAPS 34419826038 Active Simon Castillo MD Active ATENOLOL 50 MG TABS Take one by mouth daily ATENOLOL 50312397150 No Longer Active Simon Castillo MD Active FLONASE 50 MCG/ACT SUSP 2 puffs in each nostril daily FLUTICASONE PROPIONATE 85382913499 No Longer Active Simon Castillo MD Active GLYBURIDE 5 MG TAB Take one by mouth daily GLYBURIDE 77687191502 No Longer Active Simon Castillo MD Active SYMBICORT 80-4.5 MCG/ACT AERO 2 puffs twice a day BUDESONIDE-FORMOTEROL FUMARATE 04818078806 No Longer Active Simon Castillo MD Active PREDNISONE 20 MG TAB 2 tabs daily for 4 days, 1 tab daily for 4 days, 1/2 tab daily for 4 days PREDNISONE 43116614810 No Longer Active Simon Castillo MD Active AMOXICILLIN 500 MG CAPS 2 po BID x 10 days AMOXICILLIN 66192629230 No Longer Active Simon Castillo MD Active METFORMIN HCL 1000 MG TABS 1 by mounth twice a day METFORMIN HCL 50443292423 No Longer Active Simon Castillo MD Active LUTEIN-ZEAXANTHIN 6-1 MG TABS Take 2 by mouth daily LUTEIN-ZEAXANTHIN 04208298436 Active Simon Castillo MD Active IBUPROFEN 800 MG TABS Take 1 tab every 6 hrs prn IBUPROFEN 85375525814 No Longer Active Simon Castillo MD Active GLYBURIDE 2.5 MG TABS Take one by mouth daily GLYBURIDE 25074920863 No Longer Active Simon Castillo MD Active LANCETS MISC 2 qd LANCETS 98862120039 Active Pamela Conde Active ACACIA CONTOUR TEST STRP Use with testing twice daily GLUCOSE BLOOD 06533751582 Active Simon Castillo MD Active ACACIA ASPIRIN 325 MG TABS Take one by mouth daily ASPIRIN 60389275417 Active Pamela Conde Active GLYBURIDE 2.5 MG TABS Take one by mouth daily GLYBURIDE 2.5 MG TABS 205786 GLYBURIDE Inactive PREDNISONE 20 MG TAB 2 tabs daily for 4 days, 1 tab daily for 4 days, 1/2 tab daily for 4 days PREDNISONE 20 MG TAB 708414 PREDNISONE Inactive SYMBICORT 80-4.5 MCG/ACT AERO 2 puffs twice a day SYMBICORT 80-4.5 MCG/ACT AERO BUDESONIDE-FORMOTEROL FUMARATE Inactive FLONASE 50 MCG/ACT SUSP 2 puffs in each nostril daily FLONASE 50 MCG/ACT SUSP 171997 FLUTICASONE PROPIONATE Inactive ATENOLOL 50 MG TABS Take one by mouth daily ATENOLOL 50 MG TABS 521831 ATENOLOL Inactive CETIRIZINE HCL 10 MG TABS 1 po qd as needed for allergies CETIRIZINE HCL 10 MG TABS 4339756 CETIRIZINE HCL Inactive LEVAQUIN 750 MG TABS 1 po qod x 5 doses LEVAQUIN 750 MG TABS 689084 LEVOFLOXACIN Inactive GLYBURIDE 5 MG TAB Take one by mouth daily GLYBURIDE 5 MG TAB 599485 GLYBURIDE Inactive PREDNISONE 5 MG TAB Take one po qod PREDNISONE 5 MG TAB 346961 PREDNISONE Inactive PREDNISONE 20 MG TAB 2 tabs daily for 5 days, then 1 daily for 5 days PREDNISONE 20 MG TAB 989006 PREDNISONE Inactive FLONASE 50 MCG/ACT SUSP 2 puffs in each nostril daily FLONASE 50 MCG/ACT SUSP 115669 FLUTICASONE PROPIONATE Inactive SYMBICORT 160-4.5 MCG/ACT AERO 2 puff BID SYMBICORT 160-4.5 MCG/ACT AERO BUDESONIDE-FORMOTEROL FUMARATE Inactive PREDNISONE 5 MG TABS 1 po qod PREDNISONE 5 MG TABS 451189 PREDNISONE Inactive PREDNISONE 20 MG TAB 1 tablet daily for airway inflammation 02/25 PREDNISONE 20 MG TAB 997803 PREDNISONE Inactive AMOXICILLIN 500 MG CAPS 2 po BID x 10 days AMOXICILLIN 500 MG CAPS 410871 AMOXICILLIN Inactive GLYBURIDE 5 MG TAB Take one by mouth daily GLYBURIDE 5 MG TAB 793913 GLYBURIDE Inactive AZITHROMYCIN 250 MG TABS 2 po qd x 1 day, then 1 po qd x 4 days AZITHROMYCIN 250 MG TABS 6607405 AZITHROMYCIN Inactive PREDNISONE 20 MG TAB 2 tabs daily for 3 days, 1 tab daily for 3 days, 1/2 tab daily for 2 days PREDNISONE 20 MG TAB 162682 PREDNISONE Inactive PREDNISONE 20 MG TAB 2 tabs daily for 5 days, then 1 daily for 5 days, then 0.5 for 4 days PREDNISONE 20 MG TAB 765837 PREDNISONE Inactive AZITHROMYCIN 250 MG TABS 2 po qd x 1 day, then 1 po qd x 4 days AZITHROMYCIN 250 MG TABS 4002362 AZITHROMYCIN Inactive Immunizations Vaccine Administration Date Value Standard Description pneumococcal immunization administered Pneumovax 23 [CVX33] pneumococcal polysaccharide vaccine, 23 valent Vital Signs Date Name Value Unit Range Description blood pressure, diastolic - 8462-4 84 mm[Hg] [...] E&M - 3141-9 211.5 [lb_av] Weight Measured blood pressure, diastolic - 8462-4 77 mm[Hg] BP castillo blood pressure, systolic - 8480-6 173 mm[Hg] BP sys pulse rate E&M - 8867-4 59 /min Heart rate temperature E&M 95.4 [degF] Body temperature weight E&M - 3141-9 213.5 [lb_av] Weight Measured blood pressure, diastolic - 8462-4 74 mm[Hg] BP castillo blood pressure, systolic - 8480-6 159 mm[Hg] BP sys pulse rate E&M - 8867-4 74 /min Heart rate weight E&M - 3141-9 216 [lb_av] Weight Measured blood pressure, diastolic - 8462-4 84 mm[Hg] BP castillo blood pressure, systolic - 8480-6 143 mm[Hg] BP sys pulse rate E&M - 8867-4 76 /min Heart rate temperature E&M 98.3 [degF] Body temperature weight E&M - 3141-9 214.6 [lb_av] Weight Measured blood pressure, diastolic - 8462-4 60 mm[Hg] BP castillo blood pressure, systolic - 8480-6 128 mm[Hg] BP sys pulse rate E&M - 8867-4 56 /min Heart rate temperature E&M 96 [degF] Body temperature weight E&M - 3141-9 214 [lb_av] Weight Measured blood pressure, diastolic - 8462-4 65 mm[Hg] BP castillo blood pressure, systolic - 8480-6 157 mm[Hg] BP sys pulse rate E&M - 8867-4 71 /min Heart rate temperature E&M 93.7 [degF] Body temperature weight E&M - 3141-9 216 [lb_av] Weight Measured Diagnostic Results Date Name Value Unit Range Description Lab Report: CBC W/DIFF - Hematology leukocyte count, blood 11.1 10^3/MM^3 10*3/mm3 4.6-10.2 neutrophils as percent of blood leukocytes 75.7 % 42.2-75.2 monocytes as percent of blood leukocytes 7.2 % 1.7-9.3 lymphocytes as percent of blood leukocytes 13.3 % 20.5-51.1 erythrocyte (RBC) count 4.25 10^6/MM^3 10*6/mm3 4.69-6.13 hemoglobin, blood 12.9 g/dL 13.5-17.5 hematocrit, blood 39.6 % 41.0-53.0 mean corpuscular volume, RBC 93 fL 80-97 mean corpuscular hemoglobin, RBC 30.3 pg 27.0-31.2 mean corpuscular hemoglobin concentration, RBC 32.5 G/DL % 31.8- 35.4 red blood cell distribution width 14.8 % 11.6-14.8 platelet count 248 10^3/MM^3 10*3/mm3 142-424 Lab Report: CBC W/DIFF, Comp. Metabolic Panel - Chemistry sodium, serum 132 mmol/L 225-391 5299/10/26 carbon dioxide, venous blood 22.8 mmol/L 21.0-32.0 potassium, serum 5.4 mmol/L 3.5-5.2 chloride, serum 98 mmol/L 98-107 blood glucose 424 mg/dL 65-110 urea nitrogen, blood 40 mg/dL 7-18 creatinine, serum 2.26 mg/dL 0.55-1.30 alanine aminotransferase (SGPT), serum 29 U/L 12-78 aspartate aminotransferase (SGOT), serum 24 U/L 15-37 calcium, serum 8.6 mg/dL 8.5-10.1 bilirubin, serum, total 0.60 mg/dL 0.00-1.00 sodium, serum 137 mmol/L 812-857 8551/06/06 carbon dioxide, venous blood 24.9 mmol/L 21.0-32.0 [...] % 11.6-14.8 platelet count 210 10^3/MM^3 10*3/mm3 057-690 7814/10/26 leukocyte count, blood 10.3 10^3/MM^3 10*3/mm3 4.6-10.2 neutrophils as percent of blood leukocytes 80.0 % 42.2-75.2 monocytes as percent of blood leukocytes 5.6 % 1.7-9.3 lymphocytes as percent of blood leukocytes 11.8 % 20.5-51.1 erythrocyte (RBC) count 4.11 10^6/MM^3 10*6/mm3 4.69-6.13 hemoglobin, blood 12.4 g/dL 13.5-17.5 hematocrit, blood 37.7 % 41.0-53.0 mean corpuscular volume, RBC 92 fL 80-97 mean corpuscular hemoglobin, RBC 30.2 pg 27.0-31.2 mean corpuscular hemoglobin concentration, RBC 33.0 G/DL % 31.8- 35.4 red blood cell distribution width 14.4 % 11.6-14.8 platelet count 274 10^3/MM^3 10*3/mm3 142-424 Lab Report: CBC, Comp. Metabolic Panel - Chemistry sodium, serum 139 mmol/L 689-948 4090/03/17 carbon dioxide, venous blood 29.0 mmol/L 21.0-32.0 [...] count 283 10^3/MM^3 10*3/mm3 142-424 Lab Report: Comp. Metabolic Panel, Erythrocyte Sed Rate - Chemistry sodium, serum 136 mmol/L 358-789 0808/09/18 carbon dioxide, venous blood 24.3 mmol/L 21.0-32.0 potassium, serum 5.1 mmol/L 3.5-5.2 chloride, serum 104 mmol/L 98-107 blood glucose 331 mg/dL 65-110 urea nitrogen, blood 43 mg/dL 7-18 creatinine, serum 2.57 mg/dL 0.55-1.30 alanine aminotransferase (SGPT), serum 27 U/L 12-78 aspartate aminotransferase (SGOT), serum 18 U/L 15-37 calcium, serum 8.4 mg/dL 8.5-10.1 Lab Report: Comp. Metabolic Panel, HGBA1C - Chemistry sodium, serum 139 mmol/L 387-451 3619/07/09 potassium, serum 5.4 mmol/L 3.5-5.2 chloride, serum 105 mmol/L 98-107 carbon dioxide, venous blood 25.6 mmol/L 21.0-32.0 blood glucose 199 mg/dL 65-110 urea nitrogen, blood 47 mg/dL 7-18 creatinine, serum 2.40 mg/dL 0.60-1.30 alanine aminotransferase (SGPT), serum 22 U/L 12-78 aspartate aminotransferase (SGOT), serum 12 U/L 15-37 calcium, serum 8.2 mg/dL 8.5-10.1 bilirubin, serum, total 0.80 mg/dL 0.00-1.00 hemoglobin A1C, blood, as % of total hemoglobin 6.9 % 4.3-6.0 Lab Report: HGBA1C - Chemistry hemoglobin A1C, blood, as % of total hemoglobin 7.7 % 4.3-6.0 Lab Report: HGBA1C, Basic Metabolic Panel - Chemistry hemoglobin A1C, blood, as % of total hemoglobin 8.5 % 4.3-6.0 sodium, serum 137 mmol/L 327-000 1507/02/12 potassium, serum 5.1 mmol/L 3.5-5.2 chloride, serum 103 mmol/L 98-107 carbon dioxide, venous blood 24.4 mmol/L 21.0-32.0 blood glucose 261 mg/dL 65-110 calcium, serum 9.0 mg/dL 8.5-10.1 urea nitrogen, blood 44 mg/dL 7-18 creatinine, serum 2.37 mg/dL 0.55-1.30 Lab Report: Lipid Panel - Chemistry cholesterol, serum 139 mg/dL 041-574 6307/09/10 triglyceride, serum, fasting 176 mg/dL 30-200 HDL cholesterol, serum 45 mg/dL 32-96 LDL cholesterol, serum 59 mg/dL 0-130 Lab Report: MICROALBUMIN - Chemistry albumin/creatinine ratio, urine 30 - 300 mg/g mg/g{creat} 0-29 Lab Report: MICROALBUMIN - Lab microalbumin, urine 30 0-19 Lab Report: Uric Acid - Chemistry uric acid, serum 6.3 mg/dL 2.6-7.2 Encounters Code Encounter Date Provider Facility CPT-78700 Level 3 Est. Patient 08:41:43 CDT Giles Tatum [facility] CPT-18588 Level 3 Est. Patient 08:40:53 CDT Giles Salcidol [facility] CPT-07963 Level 3 Est. Patient 08:36:52 CDT Jonathanmeli Nashtico [facility] CPT-29312 Level 3 Est. Patient 09:08:44 CDT Giles Nashtico [facility] CPT-85038 Level 4 Est. Patient 09:17:32 [employer] Simon Castillo MD [facility] CPT-06335 Level 3 Est. Patient 11:22:22 [employer] Simon Castillo MD [facility] CPT-36606 Level 3 Est. Patient 09:02:14 CDT Simon Castillo MD [facility] CPT-57664 Level 4 Est. Patient 08:47:25 CDT Simon Castillo MD [facility] CPT-07601 Level 4 Est. Patient 10:17:25 CDT Simon Castillo MD [facility] CPT-57416 Level 4 Est. Patient 10:10:09 [employer] Simon Castillo MD [facility] CPT-05292 Level 4 Est. Patient 11:48:19 CDT Simon Castillo MD [facility] CPT-93189 Level 4 Est. Patient 08:59:29 CDT Simon Castillo MD [facility] CPT-02536 Level 4 Est. Patient 10:52:51 [employer] Simon Castillo MD [facility] CPT-14244 Level 4 Est. Patient 11:50:30 CDT Simon Castillo MD [facility] CPT-73045 Level 4 Est. Patient 09:54:46 CDT Simon Castillo MD [facility] CPT-40049 Level 3 Est. Patient 11:10:14 CDT Simon Castillo MD [facility] CPT-39373 Level 4 Est. Patient 09:44:02 CDT Simon Castillo MD [facility] CPT-08462 Level 3 Est. Patient 09:27:48 CDT Simon Castillo MD [facility] CPT-73567 Level 3 Est. Patient 09:58:06 [employer] Simon Castillo MD [facility] CPT-31322 Level 3 Est. Patient 09:51:35 CDT Simon Castillo MD [facility] Procedures Code Procedure Name Date Entry Date Standard Description CPT-18668 Chest 2V Frontal and Lat - XRAY USE ONLY 09:00:14 CDT CPT-69058 Venipuncture Draw Fee 13:33:02 CDT CPT-71981 Bone Density 09:37:49 [employer] CPT-91840 Fluzone High Dose 17:20:42 CDT CPT-61523 Prevnar 13 17:20:42 CDT CPT-65756 Administration 2+ single or combination vaccines inc oral 17:20:42 CDT CPT-41642 Administration single or combination vaccine inc oral 17 :20:42 CDT CPT-70494 Hand comp min 3V 09:24:38 CDT CPT-83553 Venipuncture Draw Fee 08:07:29 [employer] CPT-36235 Venipuncture Draw Fee 09:02:51 [employer] CPT-09287 Venipuncture Draw Fee 12:45:08 [employer] CPT-37482 Venipuncture Draw Fee 09:25:31 CDT CPT-G0008 Administration of Influenza Virus Vaccine 14:41:29 CDT CPT-34970 Fluzone High-Dose Intramuscular Suspension 14:41:29 CDT CPT-Cryo Cryotherapy 11:48:20 CDT CPT-41912 EKG Trac and Interp 09:21:58 CDT CPT-88976 Chest 2V Frontal and Lat 09:21:58 CDT CPT-Cryo Cryotherapy 10:54:51 [employer] CPT-40304 Administration 2+ single or combination vaccines inc oral 10:42:19 CDT CPT-23864 Administration single or combination vaccine inc oral 10 :42:19 CDT CPT-02838 Pneumovax 10:42:19 CDT CPT-09457 Influenza High Dose age 65+ 10:42:19 CDT CPT-52965 Administration single or combination vaccine inc oral 13 :18:54 CDT CPT-66042 Influenza High Dose age 65+ 13:18:54 CDT CPT-24522 Venipuncture Draw Fee 11:53:16 CDT CPT-73350 LS spine comp w obliq 11:03:13 CDT CPT-Cryo Cryotherapy 08:27:16 [employer] CPT-96134 Administration single or combination vaccine inc oral 10 :56:34 CDT CPT-07258 Influenza High Dose age 65+ 10:56:34 CDT
--- OUTSIDE RECORDS SUMMARY | 2018-03-31 16:05 | XMS REPORT | Clinical Summary ---
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 V58.65 Resolved Simon Castillo MD Long-term (current) use of steroids Hand pain, bilateral 729.5 Resolved Simon Castillo MD Pain in limb Carpal tunnel syndrome, bilateral 354.0 Active Simon Castillo MD Carpal tunnel syndrome Osteopenia 733.90 Active Simon Castillo MD Disorder of bone and cartilage, 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 Rosy Eddy RMLuis Rheumatoid arthritis Pharyngitis 462 Active 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 SOFTWARE REQUIREMENTS ENGINEER Acute pharyngitis Dyspnea 786.09 Active 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 SOFTWARE REQUIREMENTS ENGINEER Other dyspnea and respiratory abnormality Peripheral edema 782.3 Active 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 SOFTWARE REQUIREMENTS ENGINEER Edema FH DIABETES ICD-V18.0 Inactive Simon Castillo [...] ICD-729.5 Inactive Simon Castillo MD Steroid use, chcf ICD-V58.65 Inactive Simon Castillo MD Hand pain, bilateral ICD-729.5 Inactive Simon Castillo MD Medication List Medication Instructions Start Date Stop Date Generic Name NDC Status Provider Patient Instruction LASIX 20 MG TAB 1 tablet by mouth daily x 2 days FUROSEMIDE 97555246128 No Longer Active Simon Castillo MD Active SULFASALAZINE 500 MG ORAL TBEC 2 tabs BID SULFASALAZINE 36601489823 No Longer Active Neto Oshea DO Active PREDNISONE 20 MG TAB 2 tabs daily for 3 days, 1 tab daily for 3 days, 1/2 tab daily for 2 days PREDNISONE 67002149474 No Longer Active 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 SOFTWARE REQUIREMENTS ENGINEER Active PREDNISONE 20 MG TAB 1 tablet daily for airway inflammation 02/25 PREDNISONE 75098925798 No Longer Active 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 SOFTWARE REQUIREMENTS ENGINEER Active CLARITIN 10 MG TAB 1 tablet by mouth daily as needed for allergies LORATADINE 13375848988 Active 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 SOFTWARE REQUIREMENTS ENGINEER Active AZITHROMYCIN 250 MG TABS 2 po qd x 1 day, then 1 po qd x 4 days AZITHROMYCIN 02191782195 No Longer Active 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 SOFTWARE REQUIREMENTS ENGINEER Active GLIMEPIRIDE 2 MG ORAL TABS 1 po q a.m. GLIMEPIRIDE 14639554330 Active Simon Castillo MD Active HYDROCODONE-ACETAMINOPHEN 5-325 MG TABS 1 tab by mouth 8 hours as needed for pain HYDROCODONE-ACETAMINOPHEN 57690819339 Active Simon Castillo MD Active TRAMADOL HCL 50 MG TABS 1 po q6hr PRN Pain TRAMADOL HCL 34918370303 No Longer Active Simon Castillo MD Active PREDNISONE 5 MG TAB 1-2 tabs daily for rheumatoid arthritis PREDNISONE 70837561864 Active Simon Castillo MD Active PREDNISONE 5 MG TABS 1 po qod PREDNISONE 18559829651 No Longer Active Simon Castillo MD Active SYMBICORT 160-4.5 MCG/ACT AERO 2 puff BID BUDESONIDE- FORMOTEROL FUMARATE 78197070105 No Longer Active Simon Castillo MD Active FLONASE 50 MCG/ACT SUSP 2 puffs in each nostril daily FLUTICASONE PROPIONATE 60408425061 No Longer Active Simon Castillo MD Active PREDNISONE 20 MG TAB 2 tabs daily for 5 days, then 1 daily for 5 days PREDNISONE 08748617304 No Longer Active Simon Castillo MD Active PREDNISONE 20 MG TAB 2 tabs daily for 5 days, then 1 daily for 5 days, then 0.5 for 4 days PREDNISONE 65570256770 No Longer Active Simon Castillo MD Active CLOTRIMAZOLE 1 % EXT CREA Apply to affected area of feet twice daily PRN Rash CLOTRIMAZOLE 65739056110 Active Simon Castillo MD Active PREDNISONE 20 MG TAB 2 tabs daily for 3 days, 1 tab daily for 3 days, 1/2 tab daily for 2 days PREDNISONE 05484697331 No Longer Active Simon Castillo MD Active AZITHROMYCIN 250 MG TABS 2 po qd x 1 day, then 1 po qd x 4 days AZITHROMYCIN 40972979696 No Longer Active Simon Castillo MD Active LISINOPRIL 10 MG TABS 1 tablet by mouth daily LISINOPRIL 24085475043 Active Simon Castillo MD Active CARVEDILOL 6.25 MG TABS 1 po BID CARVEDILOL 15526189600 Active Simon Castillo MD Active LISINOPRIL-HYDROCHLOROTHIAZIDE 20-12.5 MG TABS 1/2 tab by mouth daily LISINOPRIL-HYDROCHLOROTHIAZIDE 94266766476 No Longer Active Simon Castillo MD Active TRAMADOL HCL 50 MG TABS 1-2 tablets every 6 hours as needed for pain TRAMADOL HCL 89027703544 Active Giles Tatum APRN Active PREDNISONE 5 MG TAB Take one po qod PREDNISONE 91113632741 No Longer Active Simon Castillo MD Active GLYBURIDE 5 MG TAB Take one by mouth daily GLYBURIDE 51917335405 No Longer Active Simon Castillo MD Active LEVAQUIN 750 MG TABS 1 po qod x 5 doses LEVOFLOXACIN 90791569980 No Longer Active Simon Castillo MD Active CETIRIZINE HCL 10 MG TABS 1 po qd as needed for allergies CETIRIZINE HCL 89337902524 No Longer Active Simon Castillo MD Active FISH OIL 1000 MG CPDR 1 pill by mouth twice daily for cholesterol OMEGA -3 FATTY ACIDS 03715007712 Active Simon Castillo MD Active BILBERRY CAPS 1 tab daily BILBERRY (VACCINIUM MYRTILLUS) CAPS 31718291438 Active Simon Castillo MD Active ATENOLOL 50 MG TABS Take one by mouth daily ATENOLOL 37553225319 No Longer Active Simon Castillo MD Active FLONASE 50 MCG/ACT SUSP 2 puffs in each nostril daily FLUTICASONE PROPIONATE 99593272451 No Longer Active Simon Castillo MD Active GLYBURIDE 5 MG TAB Take one by mouth daily GLYBURIDE 28630234122 No Longer Active Simon Castillo MD Active SYMBICORT 80-4.5 MCG/ACT AERO 2 puffs twice a day BUDESONIDE-FORMOTEROL FUMARATE 33455849829 No Longer Active Simon Castillo MD Active PREDNISONE 20 MG TAB 2 tabs daily for 4 days, 1 tab daily for 4 days, 1/2 tab daily for 4 days PREDNISONE 19832472049 No Longer Active Simon Castillo MD Active AMOXICILLIN 500 MG CAPS 2 po BID x 10 days AMOXICILLIN 10353087419 No Longer Active Simon Castillo MD Active METFORMIN HCL 1000 MG TABS 1 by mounth twice a day METFORMIN HCL 26474698359 No Longer Active Simon Castillo MD Active LUTEIN-ZEAXANTHIN 6-1 MG TABS Take 2 by mouth daily LUTEIN-ZEAXANTHIN 80188401487 Active Simon Castillo MD Active IBUPROFEN 800 MG TABS Take 1 tab every 6 hrs prn IBUPROFEN 73117420527 No Longer Active Simon Castillo MD Active GLYBURIDE 2.5 MG TABS Take one by mouth daily GLYBURIDE 08865556088 No Longer Active Simon Castillo MD Active LANCETS MISC 2 qd LANCETS 07059754000 Active Pamela Conde Active ACACIA CONTOUR TEST STRP Use with testing twice daily GLUCOSE BLOOD 64096565827 Active Simon Castillo MD Active ACACIA ASPIRIN 325 MG TABS Take one by mouth daily ASPIRIN 97266577155 Active Pamela Conde Active GLYBURIDE 2.5 MG TABS Take one by mouth daily GLYBURIDE 2.5 MG TABS 553610 GLYBURIDE Inactive PREDNISONE 20 MG TAB 2 tabs daily for 4 days, 1 tab daily for 4 days, 1/2 tab daily for 4 days PREDNISONE 20 MG TAB 746189 PREDNISONE Inactive SYMBICORT 80-4.5 MCG/ACT AERO 2 puffs twice a day SYMBICORT 80-4.5 MCG/ACT AERO BUDESONIDE-FORMOTEROL FUMARATE Inactive FLONASE 50 MCG/ACT SUSP 2 puffs in each nostril daily FLONASE 50 MCG/ACT SUSP 779930 FLUTICASONE PROPIONATE Inactive ATENOLOL 50 MG TABS Take one by mouth daily ATENOLOL 50 MG TABS 881788 ATENOLOL Inactive CETIRIZINE HCL 10 MG TABS 1 po qd as needed for allergies CETIRIZINE HCL 10 MG TABS 7575292 CETIRIZINE HCL Inactive LEVAQUIN 750 MG TABS 1 po qod x 5 doses LEVAQUIN 750 MG TABS 541649 LEVOFLOXACIN Inactive GLYBURIDE 5 MG TAB Take one by mouth daily GLYBURIDE 5 MG TAB 547309 GLYBURIDE Inactive PREDNISONE 5 MG TAB Take one po qod PREDNISONE 5 MG TAB 560840 PREDNISONE Inactive PREDNISONE 20 MG TAB 2 tabs daily for 5 days, then 1 daily for 5 days PREDNISONE 20 MG TAB 149893 PREDNISONE Inactive FLONASE 50 MCG/ACT SUSP 2 puffs in each nostril daily FLONASE 50 MCG/ACT SUSP 131371 FLUTICASONE PROPIONATE Inactive SYMBICORT 160-4.5 MCG/ACT AERO 2 puff BID SYMBICORT 160-4.5 MCG/ACT AERO BUDESONIDE-FORMOTEROL FUMARATE Inactive PREDNISONE 5 MG TABS 1 po qod PREDNISONE 5 MG TABS 535047 PREDNISONE Inactive PREDNISONE 20 MG TAB 1 tablet daily for airway inflammation 02/25 PREDNISONE 20 MG TAB 263074 PREDNISONE Inactive SULFASALAZINE 500 MG ORAL TBEC 2 tabs BID SULFASALAZINE 500 MG ORAL TBEC 137508 SULFASALAZINE Inactive LASIX 20 MG TAB 1 tablet by mouth daily x 2 days LASIX 20 MG TAB 212014 FUROSEMIDE Inactive AMOXICILLIN 500 MG CAPS 2 po BID x 10 days AMOXICILLIN 500 MG CAPS 097324 AMOXICILLIN Inactive GLYBURIDE 5 MG TAB Take one by mouth daily GLYBURIDE 5 MG TAB 481771 GLYBURIDE Inactive AZITHROMYCIN 250 MG TABS 2 po qd x 1 day, then 1 po qd x 4 days AZITHROMYCIN 250 MG TABS 1432121 AZITHROMYCIN Inactive PREDNISONE 20 MG TAB 2 tabs daily for 3 days, 1 tab daily for 3 days, 1/2 tab daily for 2 days PREDNISONE 20 MG TAB 402503 PREDNISONE Inactive PREDNISONE 20 MG TAB 2 tabs daily for 5 days, then 1 daily for 5 days, then 0.5 for 4 days PREDNISONE 20 MG TAB 386412 PREDNISONE Inactive AZITHROMYCIN 250 MG TABS 2 po qd x 1 day, then 1 po qd x 4 days AZITHROMYCIN 250 MG TABS 4138560 AZITHROMYCIN Inactive PREDNISONE 20 MG TAB 2 tabs daily for 3 days, 1 tab daily for 3 days, 1/2 tab daily for 2 days PREDNISONE 20 MG TAB 458337 PREDNISONE Inactive Immunizations Vaccine Administration Date Value Standard Description pneumococcal immunization administered Pneumovax 23 [CVX33] pneumococcal polysaccharide vaccine, 23 valent Vital Signs Date Name Value Unit Range Description blood pressure, diastolic - 8462-4 71 mm[Hg] [...] Panel - Chemistry sodium, serum 132 mmol/L 856-691 9429/10/26 carbon dioxide, venous blood 22.8 mmol/L 21.0-32.0 potassium, serum 5.4 mmol/L 3.5-5.2 chloride, serum 98 mmol/L 98-107 blood glucose 424 mg/dL 65-110 urea nitrogen, blood 40 mg/dL 7-18 creatinine, serum 2.26 mg/dL 0.55-1.30 alanine aminotransferase (SGPT), serum 29 U/L -78 aspartate aminotransferase (SGOT), serum 24 U/L 15-37 calcium, serum 8.6 mg/dL 8.5-10.1 bilirubin, serum, total 0.60 mg/dL 0.00-1.00 sodium, serum 137 mmol/L 980-403 5194/06/06 carbon dioxide, venous blood 24.9 mmol/L 21.0-32.0 [...] % 11.6-14.8 platelet count 210 10^3/MM^3 10*3/mm3 283-266 0829/10/26 leukocyte count, blood 10.3 10^3/MM^3 10*3/mm3 4.6-10.2 [...] Panel - Chemistry sodium, serum 139 mmol/L 766-657 3450/03/17 carbon dioxide, venous blood 29.0 mmol/L 21.0-32.0 [...] Rate - Chemistry sodium, serum 136 mmol/L 346-933 7041/09/18 carbon dioxide, venous blood 24.3 mmol/L 21.0-32.0 [...] HGBA1C - Chemistry sodium, serum 139 mmol/L 126-029 1765/07/09 potassium, serum 5.4 mmol/L 3.5-5.2 chloride, serum [...] 8.5 % 4.3-6.0 sodium, serum 137 mmol/L 732-779 1783/02/12 potassium, serum 5.1 mmol/L 3.5-5.2 chloride, serum 103 mmol/L 98-107 carbon dioxide, venous blood 24.4 mmol/L 21.0-32.0 blood glucose 261 mg/dL 65-110 calcium, serum 9.0 mg/dL 8.5-10.1 urea nitrogen, blood 44 mg/dL 7-18 creatinine, serum 2.37 mg/dL 0.55-1.30 Lab Report: Lipid Panel - Chemistry cholesterol, serum 139 mg/dL 149-691 8085/09/10 triglyceride, serum, fasting 176 mg/dL 30-200 HDL cholesterol, serum 45 mg/dL 32-96 LDL cholesterol, serum 59 mg/dL 0-130 Lab Report: MICROALBUMIN - Chemistry albumin/creatinine ratio, urine 30 - 300 mg/g mg/g{creat} 0-29 Lab Report: MICROALBUMIN - Lab microalbumin, urine 30 0-19 Lab Report: Uric Acid - Chemistry uric acid, serum 6.3 mg/dL 2.6-7.2 Encounters Code Encounter Date Provider Facility CPT-79936 Level 4 Est. Patient 11:51:23 CDT Simon Castillo MD [facility] CPT-29479 Level 4 Est. Patient 14:32:04 CDT Neto Oshea DO [facility] CPT-39945 Level 3 Est. Patient 08:41:43 CDT Giles Tatum [facility] CPT-24158 Level 3 Est. Patient 08:40:53 CDT Giles Tatum [facility] CPT-45955 Level 3 Est. Patient 08:36:52 CDT Giles Nashtico [facility] CPT-26114 Level 3 Est. Patient 09:08:44 CDT Giles Nashtico [facility] CPT-35602 Level 4 Est. Patient 09:17:32 SENIOR ENERGY TRADER Simon Castillo MD [facility] CPT-44512 Level 3 Est. Patient 11:22:22 SENIOR ENERGY TRADER Simon Castillo MD [facility] CPT-34332 Level 3 Est. Patient 09:02:14 CDT Simon Castillo MD [facility] CPT-71752 Level 4 Est. Patient 08:47:25 CDT Simon Castillo MD [facility] CPT-00257 Level 4 Est. Patient 10:17:25 CDT Simon Castillo MD [facility] CPT-03438 Level 4 Est. Patient 10:10:09 SENIOR ENERGY TRADER Simon Castillo MD [facility] CPT-17234 Level 4 Est. Patient 11:48:19 CDT Simon Castillo MD [facility] CPT-88288 Level 4 Est. Patient 08:59:29 CDT Simon Castillo MD [facility] CPT-64521 Level 4 Est. Patient 10:52:51 SENIOR ENERGY TRADER Simon Castillo MD [facility] CPT-40204 Level 4 Est. Patient 11:50:30 CDT Simon Castillo MD [facility] CPT-28237 Level 4 Est. Patient 09:54:46 CDT Simon Castillo MD [facility] CPT-28372 Level 3 Est. Patient 11:10:14 CDT Simon Castillo MD [facility] CPT-48088 Level 4 Est. Patient 09:44:02 CDT Simon Castillo MD [facility] CPT-14445 Level 3 Est. Patient 09:27:48 CDT Simon Castillo MD [facility] CPT-95162 Level 3 Est. Patient 09:58:06 SENIOR ENERGY TRADER Simon Castillo MD [facility] CPT-75022 Level 3 Est. Patient 09:51:35 CDT Simon Castillo MD [facility] Procedures Code Procedure Name Date Entry Date Standard Description CPT-G0438 Initial Annual Wellness Exam 08:57:30 CDT CPT-88225 Chest 2V Frontal and Lat - XRAY USE ONLY 09:00:14 CDT CPT-08942 Venipuncture Draw Fee 13:33:02 CDT CPT-96608 Bone Density 09:37:49 SENIOR ENERGY TRADER CPT-17247 Fluzone High Dose 17:20:42 CDT CPT-83853 Prevnar 13 17:20:42 CDT CPT-95247 Administration 2+ single or combination vaccines inc oral 17:20:42 CDT CPT-58634 Administration single or combination vaccine inc oral 17 :20:42 CDT CPT-46430 Hand comp min 3V 09:24:38 CDT CPT-03201 Venipuncture Draw Fee 08:07:29 SENIOR ENERGY TRADER CPT-40707 Venipuncture Draw Fee 09:02:51 SENIOR ENERGY TRADER CPT-11789 Venipuncture Draw Fee 12:45:08 SENIOR ENERGY TRADER CPT-13799 Venipuncture Draw Fee 09:25:31 CDT CPT-G0008 Administration of Influenza Virus Vaccine 14:41:29 CDT CPT-17057 Fluzone High-Dose Intramuscular Suspension 14:41:29 CDT CPT-Cryo Cryotherapy 11:48:20 CDT CPT-48534 EKG Trac and Interp 09:21:58 CDT CPT-36118 Chest 2V Frontal and Lat 09:21:58 CDT CPT-Cryo Cryotherapy 10:54:51 SENIOR ENERGY TRADER CPT-97503 Administration 2+ single or combination vaccines inc oral 10:42:19 CDT CPT-03771 Administration single or combination vaccine inc oral 10 :42:19 CDT CPT-99405 Pneumovax 10:42:19 CDT CPT-58478 Influenza High Dose age 65+ 10:42:19 CDT CPT-52171 Administration single or combination vaccine inc oral 13 :18:54 CDT CPT-04418 Influenza High Dose age 65+ 13:18:54 CDT CPT-71146 Venipuncture Draw Fee 11:53:16 CDT CPT-07781 LS spine comp w obliq 11:03:13 CDT CPT-Cryo Cryotherapy 08:27:16 SENIOR ENERGY TRADER CPT-06779 Administration single or combination vaccine inc oral 10 :56:34 CDT CPT-30012 Influenza High Dose age 65+ 10:56:34 CDT
--- OUTSIDE RECORDS SUMMARY | 2018-03-31 16:06 | XMS REPORT | Clinical Summary ---
Author Author Admin, E Organization [employer] 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 V58.65 Resolved Simon Castillo MD Long-term (current) [...] erythematous conditions Pneumonia, right lower lobe 486 Active Simon Castillo MD Pneumonia, organism unspecified FH DIABETES ICD-V18.0 Inactive Simon Castillo MD [...] Inactive Simon Castillo MD Tinea pedis ICD-110.4 Kerry Castillo MD Hand pain, bilateral ICD-729.5 Kerry Castillo MD 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, 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 ICD-V58.65 Inactive Simon Castillo MD Hand pain, bilateral ICD-729.5 Kerry Castillo MD 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 Kerry Castillo MD Pharyngitis ICD-462 Kerry Castillo MD Dyspnea ICD-786.09 Kerry Castillo MD 2016 Peripheral edema ICD-782.3 Kerry Castillo MD Medication List Medication Instructions Start Date Stop Date Generic Name NDC Status Provider Patient Instruction GLIMEPIRIDE 4 MG ORAL TABS 1 po BID GLIMEPIRIDE 00750603619 Active Simon Castillo MD Active ASPIRIN EC 81 MG ORAL TBEC 1 po qd ASPIRIN 89546394283 Active Simon Castillo MD Active CLOTRIMAZOLE 1 % EXT CREA Apply to affected area of feet twice daily PRN Rash CLOTRIMAZOLE 72403561418 No Longer Active Simon Castillo MD Active PREDNISONE 5 MG TAB 1 po BID PREDNISONE 22616338018 Active Simon Castillo MD Active FISH OIL 1000 MG CPDR 1 po BID OMEGA-3 FATTY ACIDS 44597985418 Active Simon Castillo MD Active LISINOPRIL 10 MG TABS 1 p qd LISINOPRIL 13313602401 Active Simon Castillo MD Active CLARITIN 10 MG TAB 1 tablet by mouth daily as needed for allergies LORATADINE 95542158434 No Longer Active Simon Castillo MD Active TRIAMCINOLONE ACETONIDE 0.1 % OINT Apply to affected areas TID for up to 2 weeks TRIAMCINOLONE ACETONIDE 98062817009 No Longer Active Simon Castillo MD Active LASIX 20 MG TAB 1 tablet by mouth daily x 2 days FUROSEMIDE 11519238287 No Longer Active Simon Castillo MD Active SULFASALAZINE 500 MG ORAL TBEC 2 tabs BID SULFASALAZINE 24782302418 No Longer Active Neto Oshea DO Active PREDNISONE 20 MG TAB 2 tabs daily for 3 days, 1 tab daily for 3 days, 1/2 tab daily for 2 days PREDNISONE 48965572207 No Longer Active 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 BONDING MACHINE SETTER Active PREDNISONE 20 MG TAB 1 tablet daily for airway inflammation 02/25 PREDNISONE 15276970224 No Longer Active 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 BONDING MACHINE SETTER Active AZITHROMYCIN 250 MG TABS 2 po qd x 1 day, then 1 po qd x 4 days AZITHROMYCIN 64144436723 No Longer Active 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 BONDING MACHINE SETTER Active HYDROCODONE-ACETAMINOPHEN 5-325 MG TABS 1 tab by mouth 8 hours as needed for pain HYDROCODONE-ACETAMINOPHEN 13135602044 Active Simon Castillo MD Active TRAMADOL HCL 50 MG TABS 1 po q6hr PRN Pain TRAMADOL HCL 42047415417 No Longer Active Simon Castillo MD Active PREDNISONE 5 MG TABS 1 po qod PREDNISONE 11098401193 No Longer Active Simon Castillo MD Active SYMBICORT 160-4.5 MCG/ACT AERO 2 puff BID BUDESONIDE- FORMOTEROL FUMARATE 97638832757 No Longer Active Simon Castillo MD Active FLONASE 50 MCG/ACT SUSP 2 puffs in each nostril daily FLUTICASONE PROPIONATE 84637936640 No Longer Active Simon Castillo MD Active PREDNISONE 20 MG TAB 2 tabs daily for 5 days, then 1 daily for 5 days PREDNISONE 35291879480 No Longer Active Simon Castillo MD Active PREDNISONE 20 MG TAB 2 tabs daily for 5 days, then 1 daily for 5 days, then 0.5 for 4 days PREDNISONE 81000841026 No Longer Active Simon Castillo MD Active PREDNISONE 20 MG TAB 2 tabs daily for 3 days, 1 tab daily for 3 days, 1/2 tab daily for 2 days PREDNISONE 31487558602 No Longer Active Simon Castillo MD Active AZITHROMYCIN 250 MG TABS 2 po qd x 1 day, then 1 po qd x 4 days AZITHROMYCIN 72978178765 No Longer Active Simon Castillo MD Active CARVEDILOL 6.25 MG TABS 1 po BID CARVEDILOL 12973856645 Active Simon Castillo MD Active LISINOPRIL-HYDROCHLOROTHIAZIDE 20-12.5 MG TABS 1/2 tab by mouth daily LISINOPRIL-HYDROCHLOROTHIAZIDE 59574084294 No Longer Active Simon Castillo MD Active TRAMADOL HCL 50 MG TABS 1-2 tablets every 6 hours as needed for pain TRAMADOL HCL 49211590041 Active Giles Tatum APRN Active PREDNISONE 5 MG TAB Take one po qod PREDNISONE 13203451735 No Longer Active Simon Castillo MD Active GLYBURIDE 5 MG TAB Take one by mouth daily GLYBURIDE 47394037153 No Longer Active Simon Castillo MD Active LEVAQUIN 750 MG TABS 1 po qod x 5 doses LEVOFLOXACIN 80981155447 No Longer Active Simon Castillo MD Active CETIRIZINE HCL 10 MG TABS 1 po qd as needed for allergies CETIRIZINE HCL 64384300929 No Longer Active Simon Castillo MD Active BILBERRY CAPS 1 tab daily BILBERRY (VACCINIUM MYRTILLUS) CAPS 09643729161 Active Simon Castillo MD Active ATENOLOL 50 MG TABS Take one by mouth daily ATENOLOL 44196031089 No Longer Active Simon Castillo MD Active FLONASE 50 MCG/ACT SUSP 2 puffs in each nostril daily FLUTICASONE PROPIONATE 28648945401 No Longer Active Simon Castillo MD Active GLYBURIDE 5 MG TAB Take one by mouth daily GLYBURIDE 91265424541 No Longer Active Simon Castillo MD Active SYMBICORT 80-4.5 MCG/ACT AERO 2 puffs twice a day BUDESONIDE-FORMOTEROL FUMARATE 51650880107 No Longer Active Simon Castillo MD Active PREDNISONE 20 MG TAB 2 tabs daily for 4 days, 1 tab daily for 4 days, 1/2 tab daily for 4 days PREDNISONE 58817603570 No Longer Active Simon Castillo MD Active AMOXICILLIN 500 MG CAPS 2 po BID x 10 days AMOXICILLIN 31229934799 No Longer Active Simon Castillo MD Active METFORMIN HCL 1000 MG TABS 1 by mount twice a day METFORMIN HCL 24875637762 No Longer Active Simon Castillo MD Active LUTEIN-ZEAXANTHIN 6-1 MG TABS Take 2 by mouth daily LUTEIN-ZEAXANTHIN 62953860586 Active Simon Castillo MD Active IBUPROFEN 800 MG TABS Take 1 tab every 6 hrs prn IBUPROFEN 53362818757 No Longer Active Simon Castillo MD Active GLYBURIDE 2.5 MG TABS Take one by mouth daily GLYBURIDE 43008382378 No Longer Active Simon Castillo MD Active LANCETS MISC 2 qd LANCETS 83057104344 Active Pamela Conde Active ACACIA CONTOUR TEST STRP Use with testing twice daily GLUCOSE BLOOD 94552214260 Active Simon Castillo MD Active GLYBURIDE 2.5 MG TABS Take one by mouth daily GLYBURIDE 2.5 MG TABS 336698 GLYBURIDE Inactive PREDNISONE 20 MG TAB 2 tabs daily for 4 days, 1 tab daily for 4 days, 1/2 tab daily for 4 days PREDNISONE 20 MG TAB 316535 PREDNISONE Inactive SYMBICORT 80-4.5 MCG/ACT AERO 2 puffs twice a day SYMBICORT 80-4.5 MCG/ACT AERO BUDESONIDE-FORMOTEROL FUMARATE Inactive FLONASE 50 MCG/ACT SUSP 2 puffs in each nostril daily FLONASE 50 MCG/ACT SUSP FLUTICASONE PROPIONATE Inactive ATENOLOL 50 MG TABS Take one by mouth daily ATENOLOL 50 MG TABS 736577 ATENOLOL Inactive CETIRIZINE HCL 10 MG TABS 1 po qd as needed for allergies CETIRIZINE HCL 10 MG TABS 1841081 CETIRIZINE HCL Inactive LEVAQUIN 750 MG TABS 1 po qod x 5 doses LEVAQUIN 750 MG TABS 534075 LEVOFLOXACIN Inactive GLYBURIDE 5 MG TAB Take one by mouth daily GLYBURIDE 5 MG TAB 296101 GLYBURIDE Inactive PREDNISONE 5 MG TAB Take one po qod PREDNISONE 5 MG TAB 731025 PREDNISONE Inactive PREDNISONE 20 MG TAB 2 tabs daily for 5 days, then 1 daily for 5 days PREDNISONE 20 MG TAB 245785 PREDNISONE Inactive FLONASE 50 MCG/ACT SUSP 2 puffs in each nostril daily FLONASE 50 MCG/ACT SUSP FLUTICASONE PROPIONATE Inactive SYMBICORT 160-4.5 MCG/ACT AERO 2 puff BID SYMBICORT 160-4.5 MCG/ACT AERO BUDESONIDE-FORMOTEROL FUMARATE Inactive PREDNISONE 5 MG TABS 1 po qod PREDNISONE 5 MG TABS 510998 PREDNISONE Inactive PREDNISONE 20 MG TAB 1 tablet daily for airway inflammation 02/25 PREDNISONE 20 MG TAB 620264 PREDNISONE Inactive SULFASALAZINE 500 MG ORAL TBEC 2 tabs BID SULFASALAZINE 500 MG ORAL TBEC 386180 SULFASALAZINE Inactive LASIX 20 MG TAB 1 tablet by mouth daily x 2 days LASIX 20 MG TAB 642638 FUROSEMIDE Inactive CLARITIN 10 MG TAB 1 tablet by mouth daily as needed for allergies CLARITIN 10 MG TAB 314132 LORATADINE Inactive CLOTRIMAZOLE 1 % EXT CREA Apply to affected area of feet twice daily PRN Rash CLOTRIMAZOLE 1 % EXT CREA 155932 CLOTRIMAZOLE Inactive AMOXICILLIN 500 MG CAPS 2 po BID x 10 days AMOXICILLIN 500 MG CAPS 738710 AMOXICILLIN Inactive GLYBURIDE 5 MG TAB Take one by mouth daily GLYBURIDE 5 MG TAB 804505 GLYBURIDE Inactive AZITHROMYCIN 250 MG TABS 2 po qd x 1 day, then 1 po qd x 4 days AZITHROMYCIN 250 MG TABS 6739951 AZITHROMYCIN Inactive PREDNISONE 20 MG TAB 2 tabs daily for 3 days, 1 tab daily for 3 days, 1/2 tab daily for 2 days PREDNISONE 20 MG TAB 364717 PREDNISONE Inactive PREDNISONE 20 MG TAB 2 tabs daily for 5 days, then 1 daily for 5 days, then 0.5 for 4 days PREDNISONE 20 MG TAB 391617 PREDNISONE Inactive AZITHROMYCIN 250 MG TABS 2 po qd x 1 day, then 1 po qd x 4 days AZITHROMYCIN 250 MG TABS 7847032 AZITHROMYCIN Inactive PREDNISONE 20 MG TAB 2 tabs daily for 3 days, 1 tab daily for 3 days, 1/2 tab daily for 2 days PREDNISONE 20 MG TAB 966774 PREDNISONE Inactive TRIAMCINOLONE ACETONIDE 0.1 % OINT Apply to affected areas TID for up to 2 weeks TRIAMCINOLONE ACETONIDE 0.1 % OINT 4365540 TRIAMCINOLONE ACETONIDE Inactive Immunizations Vaccine Administration Date Value Standard Description pneumococcal immunization administered Pneumovax 23 [CVX33] pneumococcal polysaccharide vaccine, 23 valent Vital Signs Date Name Value Unit Range Description blood pressure, diastolic - 8462-4 72 mm[Hg] BP castillo blood pressure, systolic - 8480-6 144 mm[Hg] BP sys height E&M - 8302-2 66.5 [in_us] Bdy height pulse rate E&M - 8867-4 64 /min Heart rate temperature E&M 98.0 [degF] Body temperature weight E&M - 3141-9 214.9 [lb_av] Weight Measured blood pressure, diastolic - [...] Panel - Chemistry sodium, serum 137 mmol/L 334-598 4779/06/06 carbon dioxide, venous blood 24.9 mmol/L 21.0-32.0 [...] Panel - Chemistry sodium, serum 139 mmol/L 397-759 0012/03/17 carbon dioxide, venous blood 29.0 mmol/L 21.0-32.0 [...] Comp. Metabolic Panel - Hematology mean corpuscular hemoglobin, RBC 29.9 pg 27.0-31.2 mean corpuscular hemoglobin concentration, RBC 32.5 G/DL % 31.8- 35.4 red blood cell distribution width 15.4 % 11.6-14.8 platelet count 283 10^3/MM^3 10*3/mm3 391-907 7938/03/17 mean corpuscular volume, RBC 92 fL 80-97 hematocrit, blood 42.0 % 41.0-53.0 hemoglobin, blood 13.6 g/dL 13.5-17.5 erythrocyte (RBC) count 4.56 10^6/MM^3 10*6/mm3 4.69-6.13 leukocyte count, blood 10.9 10^3/MM^3 10*3/mm3 4.6-10.2 Lab Report: Lipid Panel, HGBA1C, Comp. Metabolic Panel - Chemistry cholesterol, serum 126 mg/dL 174-870 5600/02/07 triglyceride, serum, fasting 83 mg/dL 30-200 HDL cholesterol, serum 70 mg/dL 32-96 LDL cholesterol, serum 39 mg/dL 0-130 hemoglobin A1C, blood, as % of total hemoglobin 8.3 % 4.3-6.0 sodium, serum 141 mmol/L 988-767 5964/02/07 carbon dioxide, venous blood 26.0 mmol/L 21.0-32.0 potassium, serum 5.1 mmol/L 3.5-5.2 chloride, serum 107 mmol/L 98-107 blood glucose 159 mg/dL 65-110 urea nitrogen, blood 42 mg/dL 7-18 creatinine, serum 2.27 mg/dL 0.55-1.30 alanine aminotransferase (SGPT), serum 22 U/L 12-78 aspartate aminotransferase (SGOT), serum 19 U/L 15-37 calcium, serum 8.3 mg/dL 8.5-10.1 bilirubin, serum, total 0.70 mg/dL 0.00-1.00 Lab Report: Uric Acid - Chemistry uric acid, serum 6.3 mg/dL 2.6-7.2 Encounters Code Encounter Date Provider Facility CPT-56142 Level 4 Est. Patient 09:29:28 DRIVEWAY ATTENDANT Simon Castillo MD [facility] CPT-60384 Level 3 Est. Patient 09:18:25 CDT Simon Castillo MD [facility] CPT-46480 Level 4 Est. Patient 11:51:23 CDT Simon Castillo MD [facility] CPT-32261 Level 4 Est. Patient 14:32:04 CDT Neto Oshea DO [facility] CPT-74910 Level 3 Est. Patient 08:41:43 CDT Giles Tatum APRN [facility] CPT-59071 Level 3 Est. Patient 08:40:53 CDT Jonathanviratriston Salcidoalejandrina [facility] CPT-96192 Level 3 Est. Patient 08:36:52 CDT Giles Caotico [facility] CPT-02732 Level 3 Est. Patient 09:08:44 CDT Jonathanmeli Nashtico [facility] CPT-99762 Level 4 Est. Patient 09:17:32 DRIVEW[employer] ATTENDANT Simon Castillo MD [facility] CPT-89613 Level 3 Est. Patient 11:22:22 DRIVEW[address] ATTENDANT Simon Castillo MD [facility] CPT-53116 Level 3 Est. Patient 09:02:14 CDT Simon Castillo MD [facility] CPT-59650 Level 4 Est. Patient 08:47:25 CDT Simon Castillo MD [facility] CPT-16400 Level 4 Est. Patient 10:17:25 CDT Simon Castillo MD [facility] CPT-21080 Level 4 Est. Patient 10:10:09 DRIVEWAY ATTENDANT Simon Castillo MD [facility] CPT-91458 Level 4 Est. Patient 11:48:19 CDT Simon Castillo MD [facility] CPT-95662 Level 4 Est. Patient 08:59:29 CDT Simon Castillo MD [facility] CPT-43937 Level 4 Est. Patient 10:52:51 DRIVEWAY ATTENDANT Simon Castillo MD [facility] CPT-04877 Level 4 Est. Patient 11:50:30 CDT Simon Castillo MD [facility] CPT-45502 Level 4 Est. Patient 09:54:46 CDT Simon Castillo MD [facility] CPT-92560 Level 3 Est. Patient 11:10:14 CDT Simon Castillo MD [facility] CPT-25390 Level 4 Est. Patient 09:44:02 CDT Simon Castillo MD [facility] CPT-67807 Level 3 Est. Patient 09:27:48 CDT Simon Castillo MD [facility] CPT-89306 Level 3 Est. Patient 09:58:06 DRIVEWAY ATTENDANT Simon Castillo MD [facility] CPT-42658 Level 3 Est. Patient 09:51:35 CDT Simon Castillo MD [facility] Procedures Code Procedure Name Date Entry Date Standard Description CPT-PENDING SALE TO [facility] Transitional Care Mgmt-High 11:01:28 DRIVEWAY ATTENDANT CPT-62369 First Vx - Ix admin for Medicare patients 17:33:39 CDT CPT-30105 Fluzone High-Dose Intramuscular Suspension 17:33:39 CDT CPT-G0438 Initial Annual Wellness Exam 08:57:30 CDT CPT-41413 Chest 2V Frontal and Lat - XRAY USE ONLY 09:00:14 CDT CPT-50359 Venipuncture Draw Fee 13:33:02 CDT CPT-69381 Bone Density 09:37:49 DRIVEWAY ATTENDANT CPT-88008 Fluzone High Dose 17:20:42 CDT CPT-66260 Prevnar 13 17:20:42 CDT CPT-56658 Administration 2+ single or combination vaccines inc oral 17:20:42 CDT CPT-93577 Administration single or combination vaccine inc oral 17 :20:42 CDT CPT-09506 Hand comp min 3V 09:24:38 CDT CPT-54975 Venipuncture Draw Fee 08:07:29 DRIVEWAY ATTENDANT CPT-63920 Venipuncture Draw Fee 09:02:51 DRIVEW[employer] ATTENDANT CPT-28222 Venipuncture Draw Fee 12:45:08 [employer]IVEW[address] ATTENDANT CPT-64561 Venipuncture Draw Fee 09:25:31 CDT CPT-G0008 Administration of Influenza Virus Vaccine 14:41:29 CDT CPT-26464 Fluzone High-Dose Intramuscular Suspension 14:41:29 CDT CPT-Cryo Cryotherapy 11:48:20 CDT CPT-57282 EKG Trac and Interp 09:21:58 CDT CPT-63082 Chest 2V Frontal and Lat 09:21:58 CDT CPT-Cryo Cryotherapy 10:54:51 DRIVEW[employer] ATTENDANT CPT-54702 Administration 2+ single or combination vaccines inc oral 10:42:19 CDT CPT-30473 Administration single or combination vaccine inc oral 10 :42:19 CDT CPT-12720 Pneumovax 10:42:19 CDT CPT-71681 Influenza High Dose age 65+ 10:42:19 CDT CPT-39399 Administration single or combination vaccine inc oral 13 :18:54 CDT CPT-94567 Influenza High Dose age 65+ 13:18:54 CDT CPT-05235 Venipuncture Draw Fee 11:53:16 CDT CPT-47870 LS spine comp w obliq 11:03:13 CDT CPT-Cryo Cryotherapy 08:27:16 DRIVEW[address] ATTENDANT CPT-48418 Administration single or combination vaccine inc oral 10 :56:34 CDT CPT-97981 Influenza High Dose age 65+ 10:56:34 CDT
--- OUTSIDE RECORDS SUMMARY | 2018-03-31 16:07 | XMS REPORT | Clinical Summary ---
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.65 Kerry Castillo MD Hand pain, bilateral [...] MG ORAL TABS 1 po qd BUMETANIDE 89098344142 Active Simon Castillo MD Active AUGMENTIN 875-125 MG ORAL TABS 1 po BID x 10 days AMOXICILLIN-POT CLAVULANATE 08896965230 No Longer Active Simon Castillo MD Active PIOGLITAZONE HCL 30 MG ORAL TABS 1 po qd PIOGLITAZONE HCL 07521621552 Active Simon Castillo MD Active GLIMEPIRIDE 4 MG ORAL TABS 1 po BID GLIMEPIRIDE 46611587583 Active Simon Castillo MD Active ASPIRIN EC 81 MG ORAL TBEC 1 po qd ASPIRIN 28505423755 Active Simon Castillo MD Active CLOTRIMAZOLE 1 % EXT CREA Apply to affected area of feet twice daily PRN Rash CLOTRIMAZOLE 00558366323 No Longer Active Simon Castillo MD Active PREDNISONE 5 MG TAB 1 po BID PREDNISONE 04921619184 Active Simon Castillo MD Active FISH OIL 1000 MG CPDR 1 po BID OMEGA-3 FATTY ACIDS 48787835648 Active Simon Castillo MD Active LISINOPRIL 10 MG TABS 1 p qd LISINOPRIL 85240661349 Active Simon Castillo MD Active CLARITIN 10 MG TAB 1 tablet by mouth daily as needed for allergies LORATADINE 88628660983 No Longer Active Simon Castillo MD Active TRIAMCINOLONE ACETONIDE 0.1 % OINT Apply to affected areas TID for up to 2 weeks TRIAMCINOLONE ACETONIDE 01836359668 No Longer Active Simon Castillo MD Active LASIX 20 MG TAB 1 tablet by mouth daily x 2 days FUROSEMIDE 11704145479 No Longer Active Simon Castillo MD Active SULFASALAZINE 500 MG ORAL TBEC 2 tabs BID SULFASALAZINE 27931382855 No Longer Active Neto Oshea DO Active PREDNISONE 20 MG TAB 2 tabs daily for 3 days, 1 tab daily for 3 days, 1/2 tab daily for 2 days PREDNISONE 48731263841 No Longer Active 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 [employer]CH[employer]ISE MANAGER Active PREDNISONE 20 MG TAB 1 tablet daily for airway inflammation 02/25 PREDNISONE 80561153316 No Longer Active 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 Active AZITHROMYCIN 250 MG TABS 2 po qd x 1 day, then 1 po qd x 4 days AZITHROMYCIN 18468051915 No Longer Active 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 DIVISION MERCHANDISE MANAGER Active HYDROCODONE-ACETAMINOPHEN 5-325 MG TABS 1 tab by mouth 8 hours as needed for pain HYDROCODONE-ACETAMINOPHEN 68523296691 Active Simon Castillo MD Active TRAMADOL HCL 50 MG TABS 1 po q6hr PRN Pain TRAMADOL HCL 88400635937 No Longer Active Simon Castillo MD Active PREDNISONE 5 MG TABS 1 po qod PREDNISONE 67581164541 No Longer Active Simon Castillo MD Active SYMBICORT 160-4.5 MCG/ACT AERO 2 puff BID BUDESONIDE- FORMOTEROL FUMARATE 72969962177 No Longer Active Simon Castillo MD Active FLONASE 50 MCG/ACT SUSP 2 puffs in each nostril daily FLUTICASONE PROPIONATE 87757439723 No Longer Active Simon Castillo MD Active PREDNISONE 20 MG TAB 2 tabs daily for 5 days, then 1 daily for 5 days PREDNISONE 27725468243 No Longer Active Simon Castillo MD Active PREDNISONE 20 MG TAB 2 tabs daily for 5 days, then 1 daily for 5 days, then 0.5 for 4 days PREDNISONE 27918721458 No Longer Active Simon Castillo MD Active PREDNISONE 20 MG TAB 2 tabs daily for 3 days, 1 tab daily for 3 days, 1/2 tab daily for 2 days PREDNISONE 69709666732 No Longer Active Simon Castillo MD Active AZITHROMYCIN 250 MG TABS 2 po qd x 1 day, then 1 po qd x 4 days AZITHROMYCIN 57542348076 No Longer Active Simon Castillo MD Active CARVEDILOL 6.25 MG TABS 1 po BID CARVEDILOL 80357014865 Active Simon Castillo MD Active LISINOPRIL-HYDROCHLOROTHIAZIDE 20-12.5 MG TABS 1/2 tab by mouth daily LISINOPRIL-HYDROCHLOROTHIAZIDE 82032082217 No Longer Active Simon Castillo MD Active TRAMADOL HCL 50 MG TABS 1-2 tablets every 6 hours as needed for pain TRAMADOL HCL 40906733917 Active Giles Tatum APRN Active PREDNISONE 5 MG TAB Take one po qod PREDNISONE 96005483628 No Longer Active Simon Castillo MD Active GLYBURIDE 5 MG TAB Take one by mouth daily GLYBURIDE 15392799545 No Longer Active Simon Castillo MD Active LEVAQUIN 750 MG TABS 1 po qod x 5 doses LEVOFLOXACIN 17961577261 No Longer Active Simon Castillo MD Active CETIRIZINE HCL 10 MG TABS 1 po qd as needed for allergies CETIRIZINE HCL 23484899986 No Longer Active Simon Castillo MD Active BILBERRY CAPS 1 tab daily BILBERRY (VACCINIUM MYRTILLUS) CAPS 29018013896 Active Simon Castillo MD Active ATENOLOL 50 MG TABS Take one by mouth daily ATENOLOL 86544105549 No Longer Active Simon Castillo MD Active FLONASE 50 MCG/ACT SUSP 2 puffs in each nostril daily FLUTICASONE PROPIONATE 38747821105 No Longer Active Simon Castillo MD Active GLYBURIDE 5 MG TAB Take one by mouth daily GLYBURIDE 58742281742 No Longer Active Simon Castillo MD Active SYMBICORT 80-4.5 MCG/ACT AERO 2 puffs twice a day BUDESONIDE-FORMOTEROL FUMARATE 27829692797 No Longer Active Simon Castillo MD Active PREDNISONE 20 MG TAB 2 tabs daily for 4 days, 1 tab daily for 4 days, 1/2 tab daily for 4 days PREDNISONE 83402131903 No Longer Active Simon Castillo MD Active AMOXICILLIN 500 MG CAPS 2 po BID x 10 days AMOXICILLIN 57821990958 No Longer Active Simon Castillo MD Active METFORMIN HCL 1000 MG TABS 1 by mounth twice a day METFORMIN HCL 74883188816 No Longer Active Simon Castillo MD Active LUTEIN-ZEAXANTHIN 6-1 MG TABS Take 2 by mouth daily LUTEIN-ZEAXANTHIN 38064468966 Active Simon Castillo MD Active IBUPROFEN 800 MG TABS Take 1 tab every 6 hrs prn IBUPROFEN 42235664236 No Longer Active Simon Castillo MD Active GLYBURIDE 2.5 MG TABS Take one by mouth daily GLYBURIDE 53834292446 No Longer Active Simon Castillo MD Active LANCETS MISC 2 qd LANCETS 97257990645 Active Pamela Conde Active ACACIA CONTOUR TEST STRP Use with testing twice daily GLUCOSE BLOOD 10300113470 Active Simon Castillo MD Active GLYBURIDE 2.5 MG TABS Take one by mouth daily GLYBURIDE 2.5 MG TABS 967827 GLYBURIDE Inactive PREDNISONE 20 MG TAB 2 tabs daily for 4 days, 1 tab daily for 4 days, 1/2 tab daily for 4 days PREDNISONE 20 MG TAB 882820 PREDNISONE Inactive SYMBICORT 80-4.5 MCG/ACT AERO 2 puffs twice a day SYMBICORT 80-4.5 MCG/ACT AERO BUDESONIDE-FORMOTEROL FUMARATE Inactive FLONASE 50 MCG/ACT SUSP 2 puffs in each nostril daily FLONASE 50 MCG/ACT SUSP 0702087 FLUTICASONE PROPIONATE Inactive ATENOLOL 50 MG TABS Take one by mouth daily ATENOLOL 50 MG TABS 025140 ATENOLOL Inactive CETIRIZINE HCL 10 MG TABS 1 po qd as needed for allergies CETIRIZINE HCL 10 MG TABS 9104553 CETIRIZINE HCL Inactive LEVAQUIN 750 MG TABS 1 po qod x 5 doses LEVAQUIN 750 MG TABS 293362 LEVOFLOXACIN Inactive GLYBURIDE 5 MG TAB Take one by mouth daily GLYBURIDE 5 MG TAB 841431 GLYBURIDE Inactive PREDNISONE 5 MG TAB Take one po qod PREDNISONE 5 MG TAB 932418 PREDNISONE Inactive PREDNISONE 20 MG TAB 2 tabs daily for 5 days, then 1 daily for 5 days PREDNISONE 20 MG TAB 646973 PREDNISONE Inactive FLONASE 50 MCG/ACT SUSP 2 puffs in each nostril daily FLONASE 50 MCG/ACT SUSP 2592312 FLUTICASONE PROPIONATE Inactive SYMBICORT 160-4.5 MCG/ACT AERO 2 puff BID SYMBICORT 160-4.5 MCG/ACT AERO BUDESONIDE-FORMOTEROL FUMARATE Inactive PREDNISONE 5 MG TABS 1 po qod PREDNISONE 5 MG TABS 374340 PREDNISONE Inactive PREDNISONE 20 MG TAB 1 tablet daily for airway inflammation 02/25 PREDNISONE 20 MG TAB 067223 PREDNISONE Inactive SULFASALAZINE 500 MG ORAL TBEC 2 tabs BID SULFASALAZINE 500 MG ORAL [facility] 286299 SULFASALAZINE Inactive LASIX 20 MG TAB 1 tablet by mouth daily x 2 days LASIX 20 MG TAB 717211 FUROSEMIDE Inactive CLARITIN 10 MG TAB 1 tablet by mouth daily as needed for allergies CLARITIN 10 MG TAB 767248 LORATADINE Inactive CLOTRIMAZOLE 1 % EXT CREA Apply to affected area of feet twice daily PRN Rash CLOTRIMAZOLE 1 % EXT CREA 364769 CLOTRIMAZOLE Inactive AMOXICILLIN 500 MG CAPS 2 po BID x 10 days AMOXICILLIN 500 MG CAPS 167985 AMOXICILLIN Inactive GLYBURIDE 5 MG TAB Take one by mouth daily GLYBURIDE 5 MG TAB 879759 GLYBURIDE Inactive AZITHROMYCIN 250 MG TABS 2 po qd x 1 day, then 1 po qd x 4 days AZITHROMYCIN 250 MG TABS 6343158 AZITHROMYCIN Inactive PREDNISONE 20 MG TAB 2 tabs daily for 3 days, 1 tab daily for 3 days, 1/2 tab daily for 2 days PREDNISONE 20 MG TAB 384795 PREDNISONE Inactive PREDNISONE 20 MG TAB 2 tabs daily for 5 days, then 1 daily for 5 days, then 0.5 for 4 days PREDNISONE 20 MG TAB 771633 PREDNISONE Inactive AZITHROMYCIN 250 MG TABS 2 po qd x 1 day, then 1 po qd x 4 days AZITHROMYCIN 250 MG TABS 3525355 AZITHROMYCIN Inactive PREDNISONE 20 MG TAB 2 tabs daily for 3 days, 1 tab daily for 3 days, 1/2 tab daily for 2 days PREDNISONE 20 MG TAB 543851 PREDNISONE Inactive TRIAMCINOLONE ACETONIDE 0.1 % OINT Apply to affected areas TID for up to 2 weeks TRIAMCINOLONE ACETONIDE 0.1 % OINT 9035304 TRIAMCINOLONE ACETONIDE Inactive AUGMENTIN 875-125 MG ORAL TABS 1 po BID x 10 days AUGMENTIN 875-125 MG ORAL TABS 225227 AMOXICILLIN-POT CLAVULANATE Inactive Immunizations Vaccine Administration Date [...] Peptide - Chemistry sodium, serum 142 mmol/L 516-741 3691/07/18 potassium, serum 5.0 mmol/L 3.5-5.2 chloride, serum [...] Panel - Chemistry sodium, serum 140 mmol/L 111-895 2050/07/13 carbon dioxide, venous blood 23.7 mmol/L 21.0-32.0 [...] Panel - Chemistry cholesterol, serum 126 mg/dL 141-089 8933/02/07 triglyceride, serum, fasting 83 mg/dL 30-200 HDL cholesterol, serum 70 mg/dL 32-96 LDL cholesterol, serum 39 mg/dL 0-130 hemoglobin A1C, blood, as % of total hemoglobin 8.3 % 4.3-6.0 sodium, serum 141 mmol/L 238-774 7596/02/07 carbon dioxide, venous blood 26.0 mmol/L 21.0-32.0 [...] 0.00-1.00 Encounters Code Encounter Date Provider Facility CPT-39560 Level 4 Est. Patient 08:48:38 CDT Simon Castillo MD [facility] CPT-67906 Level 4 Est. Patient 09:54:08 CDT Simon Castillo MD [facility] CPT-18474 Level 4 Est. Patient 16:11:23 CDT Simon Castillo MD [facility] CPT-79299 Level 4 Est. Patient 09:29:28 HEALTH SAFETY ENGINEER Simon Castillo MD [facility] CPT-93486 Level 3 Est. Patient 09:18:25 CDT Simon Castillo MD [facility] CPT-11377 Level 4 Est. Patient 11:51:23 CDT Simon Castillo MD [facility] CPT-16008 Level 4 Est. Patient 14:32:04 CDT Neto Oshea DO [facility] CPT-15235 Level 3 Est. Patient 08:41:43 CDT Jillina Nashzell [facility] CPT-79776 Level 3 Est. Patient 08:40:53 CDT 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 [facility] CPT-02617 Level 3 Est. Patient 08:36:52 CDT 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 [facility] CPT-61434 Level 3 Est. Patient 09:08:44 CDT Jillina Nashzell [facility] CPT-41795 Level 4 Est. Patient 09:17:32 HEALTH SAFETY ENGINEER Simon Castillo MD [facility] CPT-60146 Level 3 Est. Patient 11:22:22 HEALTH SAFETY ENGINEER Simon Castillo MD [facility] CPT-24197 Level 3 Est. Patient 09:02:14 CDT Simon Castillo MD [facility] CPT-55068 Level 4 Est. Patient 08:47:25 CDT Simon Castillo MD [facility] CPT-40252 Level 4 Est. Patient 10:17:25 CDT Simon Castillo MD [facility] CPT-98573 Level 4 Est. Patient 10:10:09 HEALTH SAFETY ENGINEER Simon Castillo MD [facility] CPT-67880 Level 4 Est. Patient 11:48:19 CDT Simon Castillo MD [facility] CPT-83832 Level 4 Est. Patient 08:59:29 CDT Simon Castillo MD [facility] CPT-68330 Level 4 Est. Patient 10:52:51 HEALTH SAFETY ENGINEER Simon Castillo MD [facility] CPT-29564 Level 4 Est. Patient 11:50:30 CDT Simon Castillo MD [facility] CPT-19944 Level 4 Est. Patient 09:54:46 CDT Simon Castillo MD [facility] CPT-88052 Level 3 Est. Patient 11:10:14 CDT Simon Castillo MD [facility] CPT-73442 Level 4 Est. Patient 09:44:02 CDT Simon Castillo MD [facility] CPT-54626 Level 3 Est. Patient 09:27:48 CDT Simon Castillo MD [facility] CPT-05028 Level 3 Est. Patient 09:58:06 HEALTH SAFETY ENGINEER Simon Castillo MD [facility] CPT-19088 Level 3 Est. Patient 09:51:35 CDT Simon Castillo MD [facility] Procedures Code Procedure Name Date Entry Date Standard Description CPT-G0439 Subsequent Annual Wellness Exam 09:41:17 CDT CPT-75608 Lipid - LAB USE ONLY 17:15:33 CDT CPT-01584 HGBA1C - LAB USE ONLY 17:15:33 CDT CPT-40797 CMP - LAB USE ONLY 17:15:33 CDT CPT-29649 Venipuncture Draw Fee 17:15:33 CDT CPT-[facility] Transitional Care Mgmt-High 11:01:28 HEALTH SAFETY ENGINEER CPT-17677 First Vx - Ix admin for Medicare patients 17:33:39 CDT CPT-18639 Fluzone High-Dose Intramuscular Suspension 17:33:39 CDT CPT-G0438 Initial Annual Wellness Exam 08:57:30 CDT CPT-82621 Chest 2V Frontal and Lat - XRAY USE ONLY 09:00:14 CDT CPT-28930 Venipuncture Draw Fee 13:33:02 CDT CPT-48617 Bone Density 09:37:49 HEALTH SAFETY ENGINEER CPT-37931 Fluzone High Dose 17:20:42 CDT CPT-25792 Prevnar 13 17:20:42 CDT CPT-01879 Administration 2+ single or combination vaccines inc oral 17:20:42 CDT CPT-16664 Administration single or combination vaccine inc oral 17 :20:42 CDT CPT-45930 Hand comp min 3V 09:24:38 CDT CPT-57792 Venipuncture Draw Fee 08:07:29 HEALTH SAFETY ENGINEER CPT-35550 Venipuncture Draw Fee 09:02:51 HEALTH SAFETY ENGINEER CPT-29150 Venipuncture Draw Fee 12:45:08 HEALTH SAFETY ENGINEER CPT-34605 Venipuncture Draw Fee 09:25:31 CDT CPT-G0008 Administration of Influenza Virus Vaccine 14:41:29 CDT CPT-41254 Fluzone High-Dose Intramuscular Suspension 14:41:29 CDT CPT-Cryo Cryotherapy 11:48:20 CDT CPT-28625 EKG Trac and Interp 09:21:58 CDT CPT-75983 Chest 2V Frontal and Lat 09:21:58 CDT CPT-Cryo Cryotherapy 10:54:51 HEALTH SAFETY ENGINEER CPT-90036 Administration 2+ single or combination vaccines inc oral 10:42:19 CDT CPT-11268 Administration single or combination vaccine inc oral 10 :42:19 CDT CPT-36654 Pneumovax 10:42:19 CDT CPT-98517 Influenza High Dose age 65+ 10:42:19 CDT CPT-14686 Administration single or combination vaccine inc oral 13 :18:54 CDT CPT-13871 Influenza High Dose age 65+ 13:18:54 CDT CPT-07669 Venipuncture Draw Fee 11:53:16 CDT CPT-07288 LS spine comp w obliq 11:03:13 CDT CPT-Cryo Cryotherapy 08:27:16 HEALTH SAFETY ENGINEER CPT-74391 Administration single or combination vaccine inc oral 10 :56:34 CDT CPT-37955 Influenza High Dose age 65+ 10:56:34 CDT
--- OUTSIDE RECORDS SUMMARY | 2018-03-31 16:08 | XMS REPORT | Clinical Summary ---
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 V58.65 Active Megha Mckeon Long-term (current) use of steroids Hand pain, bilateral 729.5 Active Simon Castillo MD Pain in limb Carpal tunnel syndrome, bilateral 354.0 Active Simon Castillo MD Carpal tunnel syndrome FH DIABETES ICD-V18.0 Inactive Simon Castillo MD [...] Instructions Start Date Stop Date Generic Name ND Status Provider Patient Instruction HYDROCODONE-ACETAMINOPHEN 5-325 MG TABS 1 tab by mouth 8 hours as needed for pain HYDROCODONE-ACETAMINOPHEN 51799801657 Active Simon Castillo MD Active TRAMADOL HCL 50 MG TABS 1 po q6hr PRN Pain TRAMADOL HCL 03209097317 No Longer Active Simon Castillo MD Active PREDNISONE 5 MG TAB 1-2 tabs daily for rheumatoid arthritis PREDNISONE 11706478544 Active Simon Castillo MD Active PREDNISONE 5 MG TABS 1 po qod PREDNISONE 31703962433 No Longer Active Simon Castillo MD Active SYMBICORT 160-4.5 MCG/ACT AERO 2 puff BID BUDESONIDE- FORMOTEROL FUMARATE 37410689679 No Longer Active Simon Castillo MD Active FLONASE 50 MCG/ACT SUSP 2 puffs in each nostril daily FLUTICASONE PROPIONATE 67737780576 No Longer Active Simon Castillo MD Active PREDNISONE 20 MG TAB 2 tabs daily for 5 days, then 1 daily for 5 days PREDNISONE 10098789625 No Longer Active Simon Castillo MD Active PREDNISONE 20 MG TAB 2 tabs daily for 5 days, then 1 daily for 5 days, then 0.5 for 4 days PREDNISONE 45512180691 No Longer Active Simon Castillo MD Active CLOTRIMAZOLE 1 % EXT CREA Apply to affected area of feet twice daily PRN Rash CLOTRIMAZOLE 72363891960 Active Simon Castillo MD Active PREDNISONE 20 MG TAB 2 tabs daily for 3 days, 1 tab daily for 3 days, 1/2 tab daily for 2 days PREDNISONE 66494273783 No Longer Active Simon Castillo MD Active AZITHROMYCIN 250 MG TABS 2 po qd x 1 day, then 1 po qd x 4 days AZITHROMYCIN 50340376311 No Longer Active Simon Castillo MD Active LISINOPRIL 10 MG TABS 1 tablet by mouth daily LISINOPRIL 53465030171 Active Simon Castillo MD Active GLIMEPIRIDE 1 MG TABS 1 po q a.m. GLIMEPIRIDE 67187468268 Active Simon Castillo MD Active CARVEDILOL 6.25 MG TABS 1 po BID CARVEDILOL 60938855903 Active Simon Castillo MD Active LISINOPRIL-HYDROCHLOROTHIAZIDE 20-12.5 MG TABS 1/2 tab by mouth daily LISINOPRIL-HYDROCHLOROTHIAZIDE 51263474081 No Longer Active Simon Castillo MD Active TRAMADOL HCL 50 MG TABS 1-2 tablets every 6 hours as needed for pain TRAMADOL HCL 37312169921 Active Simon Castillo MD Active PREDNISONE 5 MG TAB Take one po qod PREDNISONE 48489408826 No Longer Active Simon Castillo MD Active GLYBURIDE 5 MG TAB Take one by mouth daily GLYBURIDE 27089650424 No Longer Active Simon Castillo MD Active LEVAQUIN 750 MG TABS 1 po qod x 5 doses LEVOFLOXACIN 42723074195 No Longer Active Simon Castillo MD Active CETIRIZINE HCL 10 MG TABS 1 po qd as needed for allergies CETIRIZINE HCL 82381673003 No Longer Active Simon Castillo MD Active FISH OIL 1000 MG CPDR 1 pill by mouth twice daily for cholesterol OMEGA -3 FATTY ACIDS 50644920970 Active Simon Castillo MD Active BILBERRY CAPS 1 tab daily BILBERRY (VACCINIUM MYRTILLUS) CAPS 87820691476 Active Simon Castillo MD Active ATENOLOL 50 MG TABS Take one by mouth daily ATENOLOL 09516647136 No Longer Active Simon Castillo MD Active FLONASE 50 MCG/ACT SUSP 2 puffs in each nostril daily FLUTICASONE PROPIONATE 36953032760 No Longer Active Simon Castillo MD Active GLYBURIDE 5 MG TAB Take one by mouth daily GLYBURIDE 87937977308 No Longer Active Simon Castillo MD Active SYMBICORT 80-4.5 MCG/ACT AERO 2 puffs twice a day BUDESONIDE-FORMOTEROL FUMARATE 70240369545 No Longer Active Simon Castillo MD Active PREDNISONE 20 MG TAB 2 tabs daily for 4 days, 1 tab daily for 4 days, 1/2 tab daily for 4 days PREDNISONE 49163469659 No Longer Active Simon Castillo MD Active AMOXICILLIN 500 MG CAPS 2 po BID x 10 days AMOXICILLIN 38762690208 No Longer Active Simon Castillo MD Active METFORMIN HCL 1000 MG TABS 1 by mounth twice a day METFORMIN HCL 59599112349 No Longer Active Simon Castillo MD Active LUTEIN-ZEAXANTHIN 6-1 MG TABS Take 2 by mouth daily LUTEIN-ZEAXANTHIN 79504999255 Active Simon Castillo MD Active IBUPROFEN 800 MG TABS Take 1 tab every 6 hrs prn IBUPROFEN 45798236169 No Longer Active Simon Castillo MD Active GLYBURIDE 2.5 MG TABS Take one by mouth daily GLYBURIDE 30416114643 No Longer Active Simon Castillo MD Active LANCETS MISC 2 qd LANCETS 08448028738 Active Pamela Conde Active ACACIA CONTOUR TEST STRP Use with testing twice daily GLUCOSE BLOOD 28069179251 Active Simon Castillo MD Active ACACIA ASPIRIN 325 MG TABS Take one by mouth daily ASPIRIN 32547093326 Active Pamela Conde Active GLYBURIDE 2.5 MG TABS Take one by mouth daily GLYBURIDE 2.5 MG TABS 384545 GLYBURIDE Inactive PREDNISONE 20 MG TAB 2 tabs daily for 4 days, 1 tab daily for 4 days, 1/2 tab daily for 4 days PREDNISONE 20 MG TAB 227369 PREDNISONE Inactive SYMBICORT 80-4.5 MCG/ACT AERO 2 puffs twice a day SYMBICORT 80-4.5 MCG/ACT AERO BUDESONIDE-FORMOTEROL FUMARATE Inactive FLONASE 50 MCG/ACT SUSP 2 puffs in each nostril daily FLONASE 50 MCG/ACT SUSP FLUTICASONE PROPIONATE Inactive ATENOLOL 50 MG TABS Take one by mouth daily ATENOLOL 50 MG TABS 317834 ATENOLOL Inactive CETIRIZINE HCL 10 MG TABS 1 po qd as needed for allergies CETIRIZINE HCL 10 MG TABS 4205239 CETIRIZINE HCL Inactive LEVAQUIN 750 MG TABS 1 po qod x 5 doses LEVAQUIN 750 MG TABS 419690 LEVOFLOXACIN Inactive GLYBURIDE 5 MG TAB Take one by mouth daily GLYBURIDE 5 MG TAB 452643 GLYBURIDE Inactive PREDNISONE 5 MG TAB Take one po qod PREDNISONE 5 MG TAB 163749 PREDNISONE Inactive PREDNISONE 20 MG TAB 2 tabs daily for 5 days, then 1 daily for 5 days PREDNISONE 20 MG TAB 175432 PREDNISONE Inactive FLONASE 50 MCG/ACT SUSP 2 puffs in each nostril daily FLONASE 50 MCG/ACT SUSP FLUTICASONE PROPIONATE Inactive SYMBICORT 160-4.5 MCG/ACT AERO 2 puff BID SYMBICORT 160-4.5 MCG/ACT AERO BUDESONIDE-FORMOTEROL FUMARATE Inactive PREDNISONE 5 MG TABS 1 po qod PREDNISONE 5 MG TABS 441136 PREDNISONE Inactive AMOXICILLIN 500 MG CAPS 2 po BID x 10 days AMOXICILLIN 500 MG CAPS 264934 AMOXICILLIN Inactive GLYBURIDE 5 MG TAB Take one by mouth daily GLYBURIDE 5 MG TAB 703154 GLYBURIDE Inactive AZITHROMYCIN 250 MG TABS 2 po qd x 1 day, then 1 po qd x 4 days AZITHROMYCIN 250 MG TABS 9376146 AZITHROMYCIN Inactive PREDNISONE 20 MG TAB 2 tabs daily for 3 days, 1 tab daily for 3 days, 1/2 tab daily for 2 days PREDNISONE 20 MG TAB 757504 PREDNISONE Inactive PREDNISONE 20 MG TAB 2 tabs daily for 5 days, then 1 daily for 5 days, then 0.5 for 4 days PREDNISONE 20 MG TAB 480957 PREDNISONE Inactive Immunizations Vaccine Administration Date Value Standard Description pneumococcal immunization administered Pneumovax 23 [CVX33] pneumococcal polysaccharide vaccine, 23 valent Vital Signs Date Name Value Unit Range Description blood pressure, diastolic - 8462-4 77 mm[Hg] [...] 3141-9 216 [lb_av] Weight Measured blood pressure, diastolic, second observation 68 mm[Hg] BP castillo blood pressure, diastolic - 8462-4 70 mm[Hg] BP castillo blood pressure, systolic, second observation 160 mm[Hg] BP sys blood pressure, systolic - 8480-6 176 mm[Hg] BP sys pulse rate E&M - 8867-4 79 /min Heart rate temperature E&M 97.9 [degF] Body temperature weight E&M - 3141-9 [...] Panel - Chemistry sodium, serum 132 mmol/L 160-237 6849/10/26 carbon dioxide, venous blood 22.8 mmol/L 21.0-32.0 potassium, serum 5.4 mmol/L 3.5-5.2 chloride, serum 98 mmol/L 98-107 blood glucose 424 mg/dL 65-110 urea nitrogen, blood 40 mg/dL 7-18 creatinine, serum 2.26 mg/dL 0.55-1.30 alanine aminotransferase (SGPT), serum 29 U/L 12-78 aspartate aminotransferase (SGOT), serum 24 U/L 15-37 calcium, serum 8.6 mg/dL 8.5-10.1 bilirubin, serum, total 0.60 mg/dL 0.00-1.00 Lab Report: CBC W/DIFF, Comp. Metabolic Panel - Hematology leukocyte count, blood 10.3 10^3/MM^3 10*3/mm3 4.6-10.2 [...] count 274 10^3/MM^3 10*3/mm3 142-424 Lab Report: Comp. Metabolic Panel, Erythrocyte Sed Rate - Chemistry sodium, serum 136 mmol/L 528-101 3013/09/18 carbon dioxide, venous blood 24.3 mmol/L 21.0-32.0 potassium, serum 5.1 mmol/L 3.5-5.2 chloride, serum 104 mmol/L 98-107 blood glucose 331 mg/dL 65-110 urea nitrogen, blood 43 mg/dL 7-18 creatinine, serum 2.57 mg/dL 0.55-1.30 alanine aminotransferase (SGPT), serum 27 U/L -78 aspartate aminotransferase (SGOT), serum 18 U/L 15-37 calcium, serum 8.4 mg/dL 8.5-10.1 Lab Report: Comp. Metabolic Panel, HGBA1C - Chemistry sodium, serum 139 mmol/L 112-864 3944/07/09 potassium, serum 5.4 mmol/L 3.5-5.2 chloride, serum [...] % of total hemoglobin 7.7 % 4.3-6.0 hemoglobin A1C, blood, as % of total hemoglobin 6.8 % 4.3-6.0 Lab Report: Lipid Panel - Chemistry cholesterol, serum 139 mg/dL 159-430 2119/09/10 triglyceride, serum, fasting 176 mg/dL 30-200 HDL cholesterol, serum 45 mg/dL 32-96 LDL cholesterol, serum 59 mg/dL 0-130 Lab Report: MICROALBUMIN - Chemistry albumin/creatinine ratio, urine 30 - 300 mg/g mg/g{creat} 0-29 Lab Report: MICROALBUMIN - Lab microalbumin, urine 30 0-19 Lab Report: Prostatic Specific Ag - Chemistry prostate specific antigen 1.52 ng/mL 0.00-4.00 Encounters Code Encounter Date Provider Facility CPT-27875 Level 3 Est. Patient 11:22:22 CONTROL BOARD OPERATOR Simon Castillo MD [facility] CPT-41449 Level 3 Est. Patient 09:02:14 CDT Simon Castillo MD [facility] CPT-16217 Level 4 Est. Patient 08:47:25 CDT Simon Castillo MD [facility] CPT-98506 Level 4 Est. Patient 10:17:25 CDT Simon Castillo MD [facility] CPT-61973 Level 4 Est. Patient 10:10:09 CONTROL BOARD OPERATOR Simon Castillo MD [facility] CPT-28942 Level 4 Est. Patient 11:48:19 CDT Simon Castillo MD [facility] CPT-55359 Level 4 Est. Patient 08:59:29 CDT Simon Castillo MD [facility] CPT-17848 Level 4 Est. Patient 10:52:51 CONTROL BOARD OPERATOR Simon Castillo MD [facility] CPT-59162 Level 4 Est. Patient 11:50:30 CDT Simon Castillo MD [facility] CPT-79126 Level 4 Est. Patient 09:54:46 CDT Simon Castillo MD [facility] CPT-22607 Level 3 Est. Patient 11:10:14 CDT Simon Castillo MD [facility] CPT-06701 Level 4 Est. Patient 09:44:02 CDT Simon Castillo MD [facility] CPT-37357 Level 3 Est. Patient 09:27:48 CDT Simon Castillo MD [facility] CPT-07269 Level 3 Est. Patient 09:58:06 CONTROL BOARD OPERATOR Simon Castillo MD [facility] CPT-02805 Level 3 Est. Patient 09:51:35 CDT Simon Castillo MD [facility] Procedures Code Procedure Name Date Entry Date Standard Description CPT-79604 Bone Density 09:37:49 CONTROL BOARD OPERATOR CPT-64067 Fluzone High Dose 17:20:42 CDT CPT-96259 Prevnar 13 17:20:42 CDT CPT-50579 Administration 2+ single or combination vaccines inc oral 17:20:42 CDT CPT-41643 Administration single or combination vaccine inc oral 17 :20:42 CDT CPT-51350 Hand comp min 3V 09:24:38 CDT CPT-93927 Venipuncture Draw Fee 08:07:29 CONTROL BOARD OPERATOR CPT-32024 Venipuncture Draw Fee 09:02:51 CONTROL BOARD OPERATOR CPT-99635 Venipuncture Draw Fee 12:45:08 CONTROL BOARD OPERATOR CPT-97278 Venipuncture Draw Fee 09:25:31 CDT CPT-G0008 Administration of Influenza Virus Vaccine 14:41:29 CDT CPT-91191 Fluzone High-Dose Intramuscular Suspension 14:41:29 CDT CPT-Cryo Cryotherapy 11:48:20 CDT CPT-22455 EKG Trac and Interp 09:21:58 CDT CPT-09982 Chest 2V Frontal and Lat 09:21:58 CDT CPT-Cryo Cryotherapy 10:54:51 CONTROL BOARD OPERATOR CPT-94965 Administration 2+ single or combination vaccines inc oral 10:42:19 CDT CPT-16763 Administration single or combination vaccine inc oral 10 :42:19 CDT CPT-51229 Pneumovax 10:42:19 CDT CPT-24254 Influenza High Dose age 65+ 10:42:19 CDT CPT-90252 Administration single or combination vaccine inc oral 13 :18:54 CDT CPT-81112 Influenza High Dose age 65+ 13:18:54 CDT CPT-72724 Venipuncture Draw Fee 11:53:16 CDT CPT-62190 LS spine comp w obliq 11:03:13 CDT CPT-Cryo Cryotherapy 08:27:16 CONTROL BOARD OPERATOR CPT-31444 Administration single or combination vaccine inc oral 10 :56:34 CDT CPT-30120 Influenza High Dose age 65+ 10:56:34 CDT
--- OUTSIDE RECORDS SUMMARY | 2018-03-31 16:09 | XMS REPORT | Clinical Summary ---
Author Author Admin, E Organization [employer] Address Unknown Phone Unavailable Allergies, Adverse Reactions, [...] Simon Castillo MD Rheumatoid arthritis Steroid use, manager long term care V58.65 Resolved Simon Castillo MD Long-term (current) [...] HX OF ICD-V13.89 Inactive Simon Castillo MD Chest pain ICD-786.50 Inactive Simon Castillo MD Cough ICD-786.2 Inactive Simon Castillo MD Bronchitis, acute ICD-466.0 Inactive Simon Castillo MD Tinea pedis ICD-110.4 Inactive Simon Castillo MD Hand pain, bilateral ICD-729.5 Inactive Simon Castillo MD Obesity ICD-278.00 Inactive Simon Castillo MD 2013 Hand pain, bilateral ICD-729.5 Kerry Castillo MD Steroid use, 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 Inactive Simon Castillo MD ABDOMINAL PAIN RIGHT LOWER QUADRANT ICD-789.03 Kerry Castillo MD Dyspnea ICD-786.09 Kerry Castillo MD 2016 Peripheral edema ICD-782.3 Kerry Castillo MD 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 Kerry Castillo MD Pharyngitis ICD-462 Kerry Castillo MD Medication List Medication Instructions Start Date Stop Date Generic Name NDC Status Provider Patient Instruction GLIMEPIRIDE 4 MG ORAL TABS 1 po BID GLIMEPIRIDE 39044749768 Active Simon Castillo MD Active ASPIRIN EC 81 MG ORAL TBEC 1 po qd ASPIRIN 46831242773 Active Simon Castillo MD Active CLOTRIMAZOLE 1 % EXT CREA Apply to affected area of feet twice daily PRN Rash CLOTRIMAZOLE 19489341857 No Longer Active Simon Castillo MD Active PREDNISONE 5 MG TAB 1 po BID PREDNISONE 15325982119 Active Simon Castillo MD Active FISH OIL 1000 MG CPDR 1 po BID OMEGA-3 FATTY ACIDS 68708860066 Active Simon Castillo MD Active LISINOPRIL 10 MG TABS 1 p qd LISINOPRIL 77660617488 Active Simon Castillo MD Active CLARITIN 10 MG TAB 1 tablet by mouth daily as needed for allergies LORATADINE 44835181425 No Longer Active Simon Castillo MD Active TRIAMCINOLONE ACETONIDE 0.1 % OINT Apply to affected areas TID for up to 2 weeks TRIAMCINOLONE ACETONIDE 68049747621 No Longer Active Simon Castillo MD Active LASIX 20 MG TAB 1 tablet by mouth daily x 2 days FUROSEMIDE 24989143415 No Longer Active Simon Castillo MD Active SULFASALAZINE 500 MG ORAL TBEC 2 tabs BID SULFASALAZINE 24323119651 No Longer Active Neto Oshea DO Active PREDNISONE 20 MG TAB 2 tabs daily for 3 days, 1 tab daily for 3 days, 1/2 tab daily for 2 days PREDNISONE 83000300481 No Longer Active 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 [employer] Active PREDNISONE 20 MG TAB 1 tablet daily for airway inflammation 02/25 PREDNISONE 71465350867 No Longer Active 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 [employer] Active AZITHROMYCIN 250 MG TABS 2 po qd x 1 day, then 1 po qd x 4 days AZITHROMYCIN 60579252838 No Longer Active 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 [employer] Active HYDROCODONE-ACETAMINOPHEN 5-325 MG TABS 1 tab by mouth 8 hours as needed for pain HYDROCODONE-ACETAMINOPHEN 23252844796 Active Simon Castillo MD Active TRAMADOL HCL 50 MG TABS 1 po q6hr PRN Pain TRAMADOL HCL 44844093146 No Longer Active Simon Castillo MD Active PREDNISONE 5 MG TABS 1 po qod PREDNISONE 62865487535 No Longer Active Simon Castillo MD Active SYMBICORT 160-4.5 MCG/ACT AERO 2 puff BID BUDESONIDE- FORMOTEROL FUMARATE 62157315996 No Longer Active Simon Castillo MD Active FLONASE 50 MCG/ACT SUSP 2 puffs in each nostril daily FLUTICASONE PROPIONATE 40216631102 No Longer Active Simon Castillo MD Active PREDNISONE 20 MG TAB 2 tabs daily for 5 days, then 1 daily for 5 days PREDNISONE 10416016444 No Longer Active Simon Castillo MD Active PREDNISONE 20 MG TAB 2 tabs daily for 5 days, then 1 daily for 5 days, then 0.5 for 4 days PREDNISONE 87247689225 No Longer Active Simon Castillo MD Active PREDNISONE 20 MG TAB 2 tabs daily for 3 days, 1 tab daily for 3 days, 1/2 tab daily for 2 days PREDNISONE 87789495416 No Longer Active Simon Castillo MD Active AZITHROMYCIN 250 MG TABS 2 po qd x 1 day, then 1 po qd x 4 days AZITHROMYCIN 04514440190 No Longer Active Simon Castillo MD Active CARVEDILOL 6.25 MG TABS 1 po BID CARVEDILOL 37231925469 Active Simon Castillo MD Active LISINOPRIL-HYDROCHLOROTHIAZIDE 20-12.5 MG TABS 1/2 tab by mouth daily LISINOPRIL-HYDROCHLOROTHIAZIDE 23736051200 No Longer Active Simon Castillo MD Active TRAMADOL HCL 50 MG TABS 1-2 tablets every 6 hours as needed for pain TRAMADOL HCL 83968492396 Active Giles Tatum APRN Active PREDNISONE 5 MG TAB Take one po qod PREDNISONE 18405967189 No Longer Active Simon Castillo MD Active GLYBURIDE 5 MG TAB Take one by mouth daily GLYBURIDE 48505686545 No Longer Active Simon Castillo MD Active LEVAQUIN 750 MG TABS 1 po qod x 5 doses LEVOFLOXACIN 02504313244 No Longer Active Simon Castillo MD Active CETIRIZINE HCL 10 MG TABS 1 po qd as needed for allergies CETIRIZINE HCL 81262441272 No Longer Active Simon Castillo MD Active BILBERRY CAPS 1 tab daily BILBERRY (VACCINIUM MYRTILLUS) CAPS 09228965016 Active Simon Castillo MD Active ATENOLOL 50 MG TABS Take one by mouth daily ATENOLOL 83438197552 No Longer Active Simon Castillo MD Active FLONASE 50 MCG/ACT SUSP 2 puffs in each nostril daily FLUTICASONE PROPIONATE 06475901464 No Longer Active Simon Castillo MD Active GLYBURIDE 5 MG TAB Take one by mouth daily GLYBURIDE 30478426810 No Longer Active Simon Castillo MD Active SYMBICORT 80-4.5 MCG/ACT AERO 2 puffs twice a day BUDESONIDE-FORMOTEROL FUMARATE 67763141651 No Longer Active Simon Castillo MD Active PREDNISONE 20 MG TAB 2 tabs daily for 4 days, 1 tab daily for 4 days, 1/2 tab daily for 4 days PREDNISONE 59275049898 No Longer Active Simon Castillo MD Active AMOXICILLIN 500 MG CAPS 2 po BID x 10 days AMOXICILLIN 61374939300 No Longer Active Simon Castillo MD Active METFORMIN HCL 1000 MG TABS 1 by mount twice a day METFORMIN HCL 55140899156 No Longer Active Simon Castillo MD Active LUTEIN-ZEAXANTHIN 6-1 MG TABS Take 2 by mouth daily LUTEIN-ZEAXANTHIN 79722343157 Active Simon Castillo MD Active IBUPROFEN 800 MG TABS Take 1 tab every 6 hrs prn IBUPROFEN 29415704286 No Longer Active Simon Castillo MD Active GLYBURIDE 2.5 MG TABS Take one by mouth daily GLYBURIDE 19369159245 No Longer Active Simon Castillo MD Active LANCETS MISC 2 qd LANCETS 57014709199 Active Pamela oCnde Active ACACIA CONTOUR TEST STRP Use with testing twice daily GLUCOSE BLOOD 57404788783 Active Simon Castillo MD Active GLYBURIDE 2.5 MG TABS Take one by mouth daily GLYBURIDE 2.5 MG TABS 628136 GLYBURIDE Inactive PREDNISONE 20 MG TAB 2 tabs daily for 4 days, 1 tab daily for 4 days, 1/2 tab daily for 4 days PREDNISONE 20 MG TAB 712545 PREDNISONE Inactive SYMBICORT 80-4.5 MCG/ACT AERO 2 puffs twice a day SYMBICORT 80-4.5 MCG/ACT AERO BUDESONIDE-FORMOTEROL FUMARATE Inactive FLONASE 50 MCG/ACT SUSP 2 puffs in each nostril daily FLONASE 50 MCG/ACT SUSP FLUTICASONE PROPIONATE Inactive ATENOLOL 50 MG TABS Take one by mouth daily ATENOLOL 50 MG TABS 658366 ATENOLOL Inactive CETIRIZINE HCL 10 MG TABS 1 po qd as needed for allergies CETIRIZINE HCL 10 MG TABS 0292917 CETIRIZINE HCL Inactive LEVAQUIN 750 MG TABS 1 po qod x 5 doses LEVAQUIN 750 MG TABS 978095 LEVOFLOXACIN Inactive GLYBURIDE 5 MG TAB Take one by mouth daily GLYBURIDE 5 MG TAB 462839 GLYBURIDE Inactive PREDNISONE 5 MG TAB Take one po qod PREDNISONE 5 MG TAB 328667 PREDNISONE Inactive PREDNISONE 20 MG TAB 2 tabs daily for 5 days, then 1 daily for 5 days PREDNISONE 20 MG TAB 957537 PREDNISONE Inactive FLONASE 50 MCG/ACT SUSP 2 puffs in each nostril daily FLONASE 50 MCG/ACT SUSP FLUTICASONE PROPIONATE Inactive SYMBICORT 160-4.5 MCG/ACT AERO 2 puff BID SYMBICORT 160-4.5 MCG/ACT AERO BUDESONIDE-FORMOTEROL FUMARATE Inactive PREDNISONE 5 MG TABS 1 po qod PREDNISONE 5 MG TABS 887786 PREDNISONE Inactive PREDNISONE 20 MG TAB 1 tablet daily for airway inflammation 02/25 PREDNISONE 20 MG TAB 050367 PREDNISONE Inactive SULFASALAZINE 500 MG ORAL TBEC 2 tabs BID SULFASALAZINE 500 MG ORAL TBEC 860748 SULFASALAZINE Inactive LASIX 20 MG TAB 1 tablet by mouth daily x 2 days LASIX 20 MG TAB 422872 FUROSEMIDE Inactive CLARITIN 10 MG TAB 1 tablet by mouth daily as needed for allergies CLARITIN 10 MG TAB 606060 LORATADINE Inactive CLOTRIMAZOLE 1 % EXT CREA Apply to affected area of feet twice daily PRN Rash CLOTRIMAZOLE 1 % EXT CREA 995275 CLOTRIMAZOLE Inactive AMOXICILLIN 500 MG CAPS 2 po BID x 10 days AMOXICILLIN 500 MG CAPS 634580 AMOXICILLIN Inactive GLYBURIDE 5 MG TAB Take one by mouth daily GLYBURIDE 5 MG TAB 796417 GLYBURIDE Inactive AZITHROMYCIN 250 MG TABS 2 po qd x 1 day, then 1 po qd x 4 days AZITHROMYCIN 250 MG TABS 4978542 AZITHROMYCIN Inactive PREDNISONE 20 MG TAB 2 tabs daily for 3 days, 1 tab daily for 3 days, 1/2 tab daily for 2 days PREDNISONE 20 MG TAB 866647 PREDNISONE Inactive PREDNISONE 20 MG TAB 2 tabs daily for 5 days, then 1 daily for 5 days, then 0.5 for 4 days PREDNISONE 20 MG TAB 562708 PREDNISONE Inactive AZITHROMYCIN 250 MG TABS 2 po qd x 1 day, then 1 po qd x 4 days AZITHROMYCIN 250 MG TABS 4891827 AZITHROMYCIN Inactive PREDNISONE 20 MG TAB 2 tabs daily for 3 days, 1 tab daily for 3 days, 1/2 tab daily for 2 days PREDNISONE 20 MG TAB 795339 PREDNISONE Inactive TRIAMCINOLONE ACETONIDE 0.1 % OINT Apply to affected areas TID for up to 2 weeks TRIAMCINOLONE ACETONIDE 0.1 % OINT 8008406 TRIAMCINOLONE ACETONIDE Inactive Immunizations Vaccine Administration Date [...] Panel - Chemistry sodium, serum 137 mmol/L 608-214 0694/06/06 carbon dioxide, venous blood 24.9 mmol/L 21.0-32.0 [...] Panel - Chemistry sodium, serum 139 mmol/L 080-164 0811/03/17 carbon dioxide, venous blood 29.0 mmol/L 21.0-32.0 [...] % 11.6-14.8 platelet count 283 10^3/MM^3 10*3/mm3 304-049 4035/03/17 mean corpuscular volume, RBC 92 fL 80-97 hematocrit, blood 42.0 % 41.0-53.0 hemoglobin, blood 13.6 g/dL 13.5-17.5 erythrocyte (RBC) count 4.56 10^6/MM^3 10*6/mm3 4.69-6.13 leukocyte count, blood 10.9 10^3/MM^3 10*3/mm3 4.6-10.2 Lab Report: Lipid Panel, HGBA1C, Comp. Metabolic Panel - Chemistry cholesterol, serum 126 mg/dL 530-086 6752/02/07 triglyceride, serum, fasting 83 mg/dL 30-200 HDL cholesterol, serum 70 mg/dL 32-96 LDL cholesterol, serum 39 mg/dL 0-130 hemoglobin A1C, blood, as % of total hemoglobin 8.3 % 4.3-6.0 sodium, serum 141 mmol/L 696-156 0086/02/07 carbon dioxide, venous blood 26.0 mmol/L 21.0-32.0 [...] 2.6-7.2 Encounters Code Encounter Date Provider Facility CPT-21646 Level 4 Est. Patient 09:29:28 COMMUNICATIONS AGENT Simon Castillo MD [facility] CPT-25576 Level 3 Est. Patient 09:18:25 CDT Simon Castillo MD [facility] CPT-51334 Level 4 Est. Patient 11:51:23 CDT Simon Castillo MD [facility] CPT-38426 Level 4 Est. Patient 14:32:04 CDT Neto Oshea DO [facility] CPT-41634 Level 3 Est. Patient 08:41:43 CDT Giles Tatum APRN [facility] CPT-39045 Level 3 Est. Patient 08:40:53 CDT Jonathanviratriston Salcidoalejandrina [facility] CPT-60198 Level 3 Est. Patient 08:36:52 CDT Giles Caotico [facility] CPT-34302 Level 3 Est. Patient 09:08:44 CDT Jonathanmeli Nashtico [facility] CPT-04401 Level 4 Est. Patient 09:17:32 COMMUNICATIONS AGENT Simon Castillo MD [facility] CPT-31053 Level 3 Est. Patient 11:22:22 COMMUNICATIONS AGENT Simon Castillo MD [facility] CPT-82139 Level 3 Est. Patient 09:02:14 CDT Simon Castillo MD [facility] CPT-27041 Level 4 Est. Patient 08:47:25 CDT Simon Castillo MD [facility] CPT-98661 Level 4 Est. Patient 10:17:25 CDT Simon Castillo MD [facility] CPT-13679 Level 4 Est. Patient 10:10:09 COMMUNICATIONS AGENT Simon Castillo MD [facility] CPT-94103 Level 4 Est. Patient 11:48:19 CDT Simon Castillo MD [facility] CPT-46952 Level 4 Est. Patient 08:59:29 CDT Simon Catsillo MD [facility] CPT-60099 Level 4 Est. Patient 10:52:51 COMMUNICATIONS AGENT Simon Castillo MD [facility] CPT-99230 Level 4 Est. Patient 11:50:30 CDT Simon Castillo MD [facility] CPT-91882 Level 4 Est. Patient 09:54:46 CDT Simon Castillo MD [facility] CPT-87714 Level 3 Est. Patient 11:10:14 CDT Simon Castillo MD [facility] CPT-46902 Level 4 Est. Patient 09:44:02 CDT Simon Castillo MD [facility] CPT-15437 Level 3 Est. Patient 09:27:48 CDT Simon Castillo MD [facility] CPT-65959 Level 3 Est. Patient 09:58:06 COMMUNICATIONS AGENT Simon Castillo MD [facility] CPT-02645 Level 3 Est. Patient 09:51:35 CDT Simon Castillo MD [facility] Procedures Code Procedure Name Date Entry Date Standard Description CPT-[facility] Transitional Care Mgmt-High 11:01:28 COMMUNICATIONS AGENT CPT-23134 First Vx - Ix admin for Medicare patients 17:33:39 CDT CPT-90961 Fluzone High-Dose Intramuscular Suspension 17:33:39 CDT CPT-G0438 Initial Annual Wellness Exam 08:57:30 CDT CPT-68030 Chest 2V Frontal and Lat - XRAY USE ONLY 09:00:14 CDT CPT-76170 Venipuncture Draw Fee 13:33:02 CDT CPT-93675 Bone Density 09:37:49 COMMUNICATIONS AGENT CPT-84097 Fluzone High Dose 17:20:42 CDT CPT-45819 Prevnar 13 17:20:42 CDT CPT-67209 Administration 2+ single or combination vaccines inc oral 17:20:42 CDT CPT-69380 Administration single or combination vaccine inc oral 17 :20:42 CDT CPT-05363 Hand comp min 3V 09:24:38 CDT CPT-64960 Venipuncture Draw Fee 08:07:29 COMMUNICATIONS AGENT CPT-37237 Venipuncture Draw Fee 09:02:51 COMMUNICATIONS AGENT CPT-63234 Venipuncture Draw Fee 12:45:08 COMMUNICATIONS AGENT CPT-23838 Venipuncture Draw Fee 09:25:31 CDT CPT-G0008 Administration of Influenza Virus Vaccine 14:41:29 CDT CPT-20991 Fluzone High-Dose Intramuscular Suspension 14:41:29 CDT CPT-Cryo Cryotherapy 11:48:20 CDT CPT-49367 EKG Trac and Interp 09:21:58 CDT CPT-36424 Chest 2V Frontal and Lat 09:21:58 CDT CPT-Cryo Cryotherapy 10:54:51 COMMUNICATIONS AGENT CPT-75613 Administration 2+ single or combination vaccines inc oral 10:42:19 CDT CPT-05699 Administration single or combination vaccine inc oral 10 :42:19 CDT CPT-94935 Pneumovax 10:42:19 CDT CPT-14905 Influenza High Dose age 65+ 10:42:19 CDT CPT-40080 Administration single or combination vaccine inc oral 13 :18:54 CDT CPT-01167 Influenza High Dose age 65+ 13:18:54 CDT CPT-31863 Venipuncture Draw Fee 11:53:16 CDT CPT-26626 LS spine comp w obliq 11:03:13 CDT CPT-Cryo Cryotherapy 08:27:16 COMMUNICATIONS AGENT CPT-07989 Administration single or combination vaccine inc oral 10 :56:34 CDT CPT-99156 Influenza High Dose age 65+ 10:56:34 CDT
--- OUTSIDE RECORDS SUMMARY | 2018-03-31 16:10 | XMS REPORT | Clinical Summary ---
Author Author Admin, RAFFI Salazar [facility] Address Unknown Phone Unavailable Allergies, Adverse Reactions, Alerts Allergy Name Reaction Description Start Date Severity Status Provider No Known Allergies Angélica Mendenhall MA Conditions or Problems Problem Name Problem Code [...] MD Acute bronchitis Tinea pedis 110.4 Resolved iSmon Castillo MD Dermatophytosis of foot Hand pain, bilateral 729.5 Resolved Simon Castillo MD Pain in limb Rheumatoid arthritis 714.0 Active Simon Castillo MD Rheumatoid arthritis Steroid use, shelter V58.65 Resolved Simon Castillo MD Long-term (current) use of steroids Hand pain, bilateral 729.5 Resolved Simon Castillo MD Pain in limb Carpal tunnel syndrome, bilateral 354.0 Active Simon Castillo MD Carpal tunnel syndrome Osteopenia 733.90 Active Simon Castillo MD Disorder of bone and cartilage, unspecified FH DIABETES ICD-V18.0 Inactive Simon Castillo [...] ICD-729.5 Inactive Simon Castillo MD 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 GLIMEPIRIDE 66901393079 Active Simon Castillo MD Active HYDROCODONE-ACETAMINOPHEN 5-325 MG TABS 1 tab by mouth 8 hours as needed for pain HYDROCODONE-ACETAMINOPHEN 56491694586 Active Simon Castillo MD Active TRAMADOL HCL 50 MG TABS 1 po q6hr PRN Pain TRAMADOL HCL 84376467824 No Longer Active Simon Castillo MD Active PREDNISONE 5 MG TAB 1-2 tabs daily for rheumatoid arthritis PREDNISONE 16782488789 Active Simon Castillo MD Active PREDNISONE 5 MG TABS 1 po qod PREDNISONE 98428990876 No Longer Active Simon Castillo MD Active SYMBICORT 160-4.5 MCG/ACT AERO 2 puff BID BUDESONIDE- FORMOTEROL FUMARATE 42912260880 No Longer Active Simon Castillo MD Active FLONASE 50 MCG/ACT SUSP 2 puffs in each nostril daily FLUTICASONE PROPIONATE 71914221262 No Longer Active Simon Castillo MD Active PREDNISONE 20 MG TAB 2 tabs daily for 5 days, then 1 daily for 5 days PREDNISONE 41328067347 No Longer Active Simon Castillo MD Active PREDNISONE 20 MG TAB 2 tabs daily for 5 days, then 1 daily for 5 days, then 0.5 for 4 days PREDNISONE 13001971601 No Longer Active Simon Castillo MD Active CLOTRIMAZOLE 1 % EXT CREA Apply to affected area of feet twice daily PRN Rash CLOTRIMAZOLE 09284693359 Active Simon Castillo MD Active PREDNISONE 20 MG TAB 2 tabs daily for 3 days, 1 tab daily for 3 days, 1/2 tab daily for 2 days PREDNISONE 90896677908 No Longer Active Simon Castillo MD Active AZITHROMYCIN 250 MG TABS 2 po qd x 1 day, then 1 po qd x 4 days AZITHROMYCIN 47608273282 No Longer Active Simon Castillo MD Active LISINOPRIL 10 MG TABS 1 tablet by mouth daily LISINOPRIL 73773603541 Active Simon Castillo MD Active CARVEDILOL 6.25 MG TABS 1 po BID CARVEDILOL 95990815659 Active Simon Castillo MD Active LISINOPRIL-HYDROCHLOROTHIAZIDE 20-12.5 MG TABS 1/2 tab by mouth daily LISINOPRIL-HYDROCHLOROTHIAZIDE 07122363657 No Longer Active Simon Castillo MD Active TRAMADOL HCL 50 MG TABS 1-2 tablets every 6 hours as needed for pain TRAMADOL HCL 33866157226 Active Simon Castillo MD Active PREDNISONE 5 MG TAB Take one po qod PREDNISONE 67637929126 No Longer Active Simon Castillo MD Active GLYBURIDE 5 MG TAB Take one by mouth daily GLYBURIDE 72886624734 No Longer Active Simon Castillo MD Active LEVAQUIN 750 MG TABS 1 po qod x 5 doses LEVOFLOXACIN 49077835388 No Longer Active Simon Castillo MD Active CETIRIZINE HCL 10 MG TABS 1 po qd as needed for allergies CETIRIZINE HCL 14431331459 No Longer Active Simon Castillo MD Active FISH OIL 1000 MG CPDR 1 pill by mouth twice daily for cholesterol OMEGA -3 FATTY ACIDS 57533365847 Active Simon Castillo MD Active BILBERRY CAPS 1 tab daily BILBERRY (VACCINIUM MYRTILLUS) CAPS 60261883725 Active Simon Castillo MD Active ATENOLOL 50 MG TABS Take one by mouth daily ATENOLOL 73004399856 No Longer Active Simon Castillo MD Active FLONASE 50 MCG/ACT SUSP 2 puffs in each nostril daily FLUTICASONE PROPIONATE 92953468458 No Longer Active Simon Castillo MD Active GLYBURIDE 5 MG TAB Take one by mouth daily GLYBURIDE 33211692591 No Longer Active Simon Castillo MD Active SYMBICORT 80-4.5 MCG/ACT AERO 2 puffs twice a day BUDESONIDE-FORMOTEROL FUMARATE 36668571644 No Longer Active Simon Castillo MD Active PREDNISONE 20 MG TAB 2 tabs daily for 4 days, 1 tab daily for 4 days, 1/2 tab daily for 4 days PREDNISONE 61586843013 No Longer Active Simon Castillo MD Active AMOXICILLIN 500 MG CAPS 2 po BID x 10 days AMOXICILLIN 57614229452 No Longer Active Simon Castillo MD Active METFORMIN HCL 1000 MG TABS 1 by mounth twice a day METFORMIN HCL 61774469643 No Longer Active Simon Castillo MD Active LUTEIN-ZEAXANTHIN 6-1 MG TABS Take 2 by mouth daily LUTEIN-ZEAXANTHIN 30299372914 Active Simon Castillo MD Active IBUPROFEN 800 MG TABS Take 1 tab every 6 hrs prn IBUPROFEN 05144618565 No Longer Active Simon Castillo MD Active GLYBURIDE 2.5 MG TABS Take one by mouth daily GLYBURIDE 04920362663 No Longer Active Simon Castillo MD Active LANCETS MISC 2 qd LANCETS 12727257618 Active Pamela Conde Active ACACIA CONTOUR TEST STRP Use with testing twice daily GLUCOSE BLOOD 72136632113 Active Simon Castillo MD Active ACACIA ASPIRIN 325 MG TABS Take one by mouth daily ASPIRIN 75396970659 Active Pamela Conde Active GLYBURIDE 2.5 MG TABS Take one by mouth daily GLYBURIDE 2.5 MG TABS 632726 GLYBURIDE Inactive PREDNISONE 20 MG TAB 2 tabs daily for 4 days, 1 tab daily for 4 days, 1/2 tab daily for 4 days PREDNISONE 20 MG TAB 656784 PREDNISONE Inactive SYMBICORT 80-4.5 MCG/ACT AERO 2 puffs twice a day SYMBICORT 80-4.5 MCG/ACT AERO BUDESONIDE-FORMOTEROL FUMARATE Inactive FLONASE 50 MCG/ACT SUSP 2 puffs in each nostril daily FLONASE 50 MCG/ACT SUSP FLUTICASONE PROPIONATE Inactive ATENOLOL 50 MG TABS Take one by mouth daily ATENOLOL 50 MG TABS 613732 ATENOLOL Inactive CETIRIZINE HCL 10 MG TABS 1 po qd as needed for allergies CETIRIZINE HCL 10 MG TABS 0955514 CETIRIZINE HCL Inactive LEVAQUIN 750 MG TABS 1 po qod x 5 doses LEVAQUIN 750 MG TABS 771036 LEVOFLOXACIN Inactive GLYBURIDE 5 MG TAB Take one by mouth daily GLYBURIDE 5 MG TAB 079032 GLYBURIDE Inactive PREDNISONE 5 MG TAB Take one po qod PREDNISONE 5 MG TAB 189681 PREDNISONE Inactive PREDNISONE 20 MG TAB 2 tabs daily for 5 days, then 1 daily for 5 days PREDNISONE 20 MG TAB 217141 PREDNISONE Inactive FLONASE 50 MCG/ACT SUSP 2 puffs in each nostril daily FLONASE 50 MCG/ACT SUSP FLUTICASONE PROPIONATE Inactive SYMBICORT 160-4.5 MCG/ACT AERO 2 puff BID SYMBICORT 160-4.5 MCG/ACT AERO BUDESONIDE-FORMOTEROL FUMARATE Inactive PREDNISONE 5 MG TABS 1 po qod PREDNISONE 5 MG TABS 146314 PREDNISONE Inactive AMOXICILLIN 500 MG CAPS 2 po BID x 10 days AMOXICILLIN 500 MG CAPS 850923 AMOXICILLIN Inactive GLYBURIDE 5 MG TAB Take one by mouth daily GLYBURIDE 5 MG TAB 468440 GLYBURIDE Inactive AZITHROMYCIN 250 MG TABS 2 po qd x 1 day, then 1 po qd x 4 days AZITHROMYCIN 250 MG TABS 1994699 AZITHROMYCIN Inactive PREDNISONE 20 MG TAB 2 tabs daily for 3 days, 1 tab daily for 3 days, 1/2 tab daily for 2 days PREDNISONE 20 MG TAB 358683 PREDNISONE Inactive PREDNISONE 20 MG TAB 2 tabs daily for 5 days, then 1 daily for 5 days, then 0.5 for 4 days PREDNISONE 20 MG TAB 164864 PREDNISONE Inactive Immunizations Vaccine Administration Date Value Standard Description pneumococcal immunization administered Pneumovax 23 [CVX33] pneumococcal polysaccharide vaccine, 23 valent Vital Signs Date Name Value Unit Range Description blood pressure, diastolic - 8462-4 68 mm[Hg] [...] Panel - Chemistry sodium, serum 132 mmol/L 728-122 5505/10/26 carbon dioxide, venous blood 22.8 mmol/L 21.0-32.0 [...] Rate - Chemistry sodium, serum 136 mmol/L 256-877 5938/09/18 carbon dioxide, venous blood 24.3 mmol/L 21.0-32.0 [...] HGBA1C - Chemistry sodium, serum 139 mmol/L 874-131 2140/07/09 potassium, serum 5.4 mmol/L 3.5-5.2 chloride, serum [...] total hemoglobin 6.8 % 4.3-6.0 Lab Report: HGBA1C, Basic Metabolic Panel - Chemistry hemoglobin A1C, blood, as % of total hemoglobin 8.5 % 4.3-6.0 sodium, serum 137 mmol/L 599-495 5727/02/12 potassium, serum 5.1 mmol/L 3.5-5.2 chloride, serum 103 mmol/L 98-107 carbon dioxide, venous blood 24.4 mmol/L 21.0-32.0 blood glucose 261 mg/dL 65-110 calcium, serum 9.0 mg/dL 8.5-10.1 urea nitrogen, blood 44 mg/dL 7-18 creatinine, serum 2.37 mg/dL 0.55-1.30 Lab Report: Lipid Panel - Chemistry cholesterol, serum 139 mg/dL 853-977 8919/09/10 triglyceride, serum, fasting 176 mg/dL 30-200 HDL cholesterol, serum 45 mg/dL 32-96 LDL cholesterol, serum 59 mg/dL 0-130 Lab Report: MICROALBUMIN - Chemistry albumin/creatinine ratio, urine 30 - 300 mg/g mg/g{creat} 0-29 Lab Report: MICROALBUMIN - Lab microalbumin, urine 30 0-19 Lab Report: Prostatic Specific Ag - Chemistry prostate specific antigen 1.52 ng/mL 0.00-4.00 Encounters Code Encounter Date Provider Facility CPT-94092 Level 4 Est. Patient 09:17:32 AMMUNITION SPECIALIST Simon Castillo MD [facility] CPT-72362 Level 3 Est. Patient 11:22:22 AMMUNITION SPECIALIST Simon Castillo MD [facility] CPT-52355 Level 3 Est. Patient 09:02:14 CDT Simon Castillo MD [facility] CPT-80134 Level 4 Est. Patient 08:47:25 CDT Simon Castillo MD [facility] CPT-59425 Level 4 Est. Patient 10:17:25 CDT Simon Castillo MD [facility] CPT-50927 Level 4 Est. Patient 10:10:09 AMMUNITION SPECIALIST Simon Castillo MD [facility] CPT-72257 Level 4 Est. Patient 11:48:19 CDT Simon Castillo MD [facility] CPT-60148 Level 4 Est. Patient 08:59:29 CDT Simon Castillo MD [facility] CPT-30706 Level 4 Est. Patient 10:52:51 AMMUNITION SPECIALIST Simon Castillo MD [facility] CPT-73250 Level 4 Est. Patient 11:50:30 CDT Simon Castillo MD [facility] CPT-92241 Level 4 Est. Patient 09:54:46 CDT Simon Castillo MD [facility] CPT-92293 Level 3 Est. Patient 11:10:14 CDT Simon Castillo MD [facility] CPT-80278 Level 4 Est. Patient 09:44:02 CDT Simon Castillo MD [facility] CPT-26314 Level 3 Est. Patient 09:27:48 CDT Simon Castillo MD [facility] CPT-09316 Level 3 Est. Patient 09:58:06 AMMUNITION SPECIALIST Simon Castillo MD [facility] CPT-30881 Level 3 Est. Patient 09:51:35 CDT Simon Castillo MD [facility] Procedures Code Procedure Name Date Entry Date Standard Description CPT-26187 Bone Density 09:37:49 AMMUNITION SPECIALIST CPT-75268 Fluzone High Dose 17:20:42 CDT CPT-73282 Prevnar 13 17:20:42 CDT CPT-35922 Administration 2+ single or combination vaccines inc oral 17:20:42 CDT CPT-33853 Administration single or combination vaccine inc oral 17 :20:42 CDT CPT-34389 Hand comp min 3V 09:24:38 CDT CPT-52745 Venipuncture Draw Fee 08:07:29 AMMUNITION SPECIALIST CPT-30613 Venipuncture Draw Fee 09:02:51 AMMUNITION SPECIALIST CPT-19651 Venipuncture Draw Fee 12:45:08 AMMUNITION SPECIALIST CPT-87038 Venipuncture Draw Fee 09:25:31 CDT CPT-G0008 Administration of Influenza Virus Vaccine 14:41:29 CDT CPT-43470 Fluzone High-Dose Intramuscular Suspension 14:41:29 CDT CPT-Cryo Cryotherapy 11:48:20 CDT CPT-26256 EKG Trac and Interp 09:21:58 CDT CPT-50158 Chest 2V Frontal and Lat 09:21:58 CDT CPT-Cryo Cryotherapy 10:54:51 AMMUNITION SPECIALIST CPT-17679 Administration 2+ single or combination vaccines inc oral 10:42:19 CDT CPT-26277 Administration single or combination vaccine inc oral 10 :42:19 CDT CPT-04669 Pneumovax 10:42:19 CDT CPT-29083 Influenza High Dose age 65+ 10:42:19 CDT CPT-86214 Administration single or combination vaccine inc oral 13 :18:54 CDT CPT-25941 Influenza High Dose age 65+ 13:18:54 CDT CPT-46714 Venipuncture Draw Fee 11:53:16 CDT CPT-44717 LS spine comp w obliq 11:03:13 CDT CPT-Cryo Cryotherapy 08:27:16 AMMUNITION SPECIALIST CPT-90930 Administration single or combination vaccine inc oral 10 :56:34 CDT CPT-78041 Influenza High Dose age 65+ 10:56:34 CDT
--- OUTSIDE RECORDS SUMMARY | 2018-03-31 16:11 | XMS REPORT | Clinical Summary ---
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 GLIMEPIRIDE 50762314824 Active Simon Castillo MD Active HYDROCODONE-ACETAMINOPHEN 5-325 MG TABS 1 tab by mouth 8 hours as needed for pain HYDROCODONE-ACETAMINOPHEN 54793294305 Active Simon Castillo MD Active TRAMADOL HCL 50 MG TABS 1 po q6hr PRN Pain TRAMADOL HCL 97818155637 No Longer Active Simon Castillo MD Active PREDNISONE 5 MG TAB 1-2 tabs daily for rheumatoid arthritis PREDNISONE 31929763902 Active Simon Castillo MD Active PREDNISONE 5 MG TABS 1 po qod PREDNISONE 21511580723 No Longer Active Simon Castillo MD Active SYMBICORT 160-4.5 MCG/ACT AERO 2 puff BID BUDESONIDE- FORMOTEROL FUMARATE 15683214943 No Longer Active Simon Castillo MD Active FLONASE 50 MCG/ACT SUSP 2 puffs in each nostril daily FLUTICASONE PROPIONATE 15559491083 No Longer Active Simon Castillo MD Active PREDNISONE 20 MG TAB 2 tabs daily for 5 days, then 1 daily for 5 days PREDNISONE 81487042888 No Longer Active Simon Castillo MD Active PREDNISONE 20 MG TAB 2 tabs daily for 5 days, then 1 daily for 5 days, then 0.5 for 4 days PREDNISONE 30679583946 No Longer Active Simon Castillo MD Active CLOTRIMAZOLE 1 % EXT CREA Apply to affected area of feet twice daily PRN Rash CLOTRIMAZOLE 82593075267 Active Simon Castillo MD Active PREDNISONE 20 MG TAB 2 tabs daily for 3 days, 1 tab daily for 3 days, 1/2 tab daily for 2 days PREDNISONE 85501693287 No Longer Active Simon Castillo MD Active AZITHROMYCIN 250 MG TABS 2 po qd x 1 day, then 1 po qd x 4 days AZITHROMYCIN 07450050033 No Longer Active Simon Castillo MD Active LISINOPRIL 10 MG TABS 1 tablet by mouth daily LISINOPRIL 28992057964 Active Simon Castillo MD Active CARVEDILOL 6.25 MG TABS 1 po BID CARVEDILOL 61135202149 Active Simon Castillo MD Active LISINOPRIL-HYDROCHLOROTHIAZIDE 20-12.5 MG TABS 1/2 tab by mouth daily LISINOPRIL-HYDROCHLOROTHIAZIDE 53449114870 No Longer Active Simon Castillo MD Active TRAMADOL HCL 50 MG TABS 1-2 tablets every 6 hours as needed for pain TRAMADOL HCL 83201025612 Active Simon Castillo MD Active PREDNISONE 5 MG TAB Take one po qod PREDNISONE 38387515880 No Longer Active Simon Castillo MD Active GLYBURIDE 5 MG TAB Take one by mouth daily GLYBURIDE 12257876941 No Longer Active Simon Castillo MD Active LEVAQUIN 750 MG TABS 1 po qod x 5 doses LEVOFLOXACIN 25753040776 No Longer Active Simon Castillo MD Active CETIRIZINE HCL 10 MG TABS 1 po qd as needed for allergies CETIRIZINE HCL 93059953284 No Longer Active Simon Castillo MD Active FISH OIL 1000 MG CPDR 1 pill by mouth twice daily for cholesterol OMEGA -3 FATTY ACIDS 77765076400 Active Simon Castillo MD Active BILBERRY CAPS 1 tab daily BILBERRY (VACCINIUM MYRTILLUS) CAPS 48839841401 Active Simon Castillo MD Active ATENOLOL 50 MG TABS Take one by mouth daily ATENOLOL 18450970227 No Longer Active Simon Castillo MD Active FLONASE 50 MCG/ACT SUSP 2 puffs in each nostril daily FLUTICASONE PROPIONATE 85759849308 No Longer Active Simon Castillo MD Active GLYBURIDE 5 MG TAB Take one by mouth daily GLYBURIDE 00031317881 No Longer Active Simon Castillo MD Active SYMBICORT 80-4.5 MCG/ACT AERO 2 puffs twice a day BUDESONIDE-FORMOTEROL FUMARATE 27264422218 No Longer Active Simon Castillo MD Active PREDNISONE 20 MG TAB 2 tabs daily for 4 days, 1 tab daily for 4 days, 1/2 tab daily for 4 days PREDNISONE 23216578687 No Longer Active Simon Castillo MD Active AMOXICILLIN 500 MG CAPS 2 po BID x 10 days AMOXICILLIN 84280459742 No Longer Active Simon Castillo MD Active METFORMIN HCL 1000 MG TABS 1 by mounth twice a day METFORMIN HCL 21288380699 No Longer Active Simon Castillo MD Active LUTEIN-ZEAXANTHIN 6-1 MG TABS Take 2 by mouth daily LUTEIN-ZEAXANTHIN 30594631909 Active Simon Castillo MD Active IBUPROFEN 800 MG TABS Take 1 tab every 6 hrs prn IBUPROFEN 23947730363 No Longer Active Simon Castillo MD Active GLYBURIDE 2.5 MG TABS Take one by mouth daily GLYBURIDE 90656005601 No Longer Active Simon Castillo MD Active LANCETS MISC 2 qd LANCETS 85323228255 Active Pamela Conde Active ACACIA CONTOUR TEST STRP Use with testing twice daily GLUCOSE BLOOD 46557731803 Active Simon Castillo MD Active ACACIA ASPIRIN 325 MG TABS Take one by mouth daily ASPIRIN 37113878739 Active Pamela Conde Active GLYBURIDE 2.5 MG TABS Take one by mouth daily GLYBURIDE 2.5 MG TABS 511600 GLYBURIDE Inactive PREDNISONE 20 MG TAB 2 tabs daily for 4 days, 1 tab daily for 4 days, 1/2 tab daily for 4 days PREDNISONE 20 MG TAB 617659 PREDNISONE Inactive SYMBICORT 80-4.5 MCG/ACT AERO 2 puffs twice a day SYMBICORT 80-4.5 MCG/ACT AERO BUDESONIDE-FORMOTEROL FUMARATE Inactive FLONASE 50 MCG/ACT SUSP 2 puffs in each nostril daily FLONASE 50 MCG/ACT SUSP FLUTICASONE PROPIONATE Inactive ATENOLOL 50 MG TABS Take one by mouth daily ATENOLOL 50 MG TABS 456504 ATENOLOL Inactive CETIRIZINE HCL 10 MG TABS 1 po qd as needed for allergies CETIRIZINE HCL 10 MG TABS 3878042 CETIRIZINE HCL Inactive LEVAQUIN 750 MG TABS 1 po qod x 5 doses LEVAQUIN 750 MG TABS 480547 LEVOFLOXACIN Inactive GLYBURIDE 5 MG TAB Take one by mouth daily GLYBURIDE 5 MG TAB 624289 GLYBURIDE Inactive PREDNISONE 5 MG TAB Take one po qod PREDNISONE 5 MG TAB 236128 PREDNISONE Inactive PREDNISONE 20 MG TAB 2 tabs daily for 5 days, then 1 daily for 5 days PREDNISONE 20 MG TAB 720494 PREDNISONE Inactive FLONASE 50 MCG/ACT SUSP 2 puffs in each nostril daily FLONASE 50 MCG/ACT SUSP FLUTICASONE PROPIONATE Inactive SYMBICORT 160-4.5 MCG/ACT AERO 2 puff BID SYMBICORT 160-4.5 MCG/ACT AERO BUDESONIDE-FORMOTEROL FUMARATE Inactive PREDNISONE 5 MG TABS 1 po qod PREDNISONE 5 MG TABS 236602 PREDNISONE Inactive AMOXICILLIN 500 MG CAPS 2 po BID x 10 days AMOXICILLIN 500 MG CAPS 219259 AMOXICILLIN Inactive GLYBURIDE 5 MG TAB Take one by mouth daily GLYBURIDE 5 MG TAB 799942 GLYBURIDE Inactive AZITHROMYCIN 250 MG TABS 2 po qd x 1 day, then 1 po qd x 4 days AZITHROMYCIN 250 MG TABS 7953316 AZITHROMYCIN Inactive PREDNISONE 20 MG TAB 2 tabs daily for 3 days, 1 tab daily for 3 days, 1/2 tab daily for 2 days PREDNISONE 20 MG TAB 623046 PREDNISONE Inactive PREDNISONE 20 MG TAB 2 tabs daily for 5 days, then 1 daily for 5 days, then 0.5 for 4 days PREDNISONE 20 MG TAB 508962 PREDNISONE Inactive Immunizations Vaccine Administration Date Value [...] pressure, diastolic - 8462-4 60 mm[Hg] BP acstillo blood pressure, systolic - 8480-6 128 mm[Hg] [...] Panel - Chemistry sodium, serum 132 mmol/L 112-929 2064/10/26 carbon dioxide, venous blood 22.8 mmol/L 21.0-32.0 [...] Rate - Chemistry sodium, serum 136 mmol/L 234-863 8674/09/18 carbon dioxide, venous blood 24.3 mmol/L 21.0-32.0 [...] HGBA1C - Chemistry sodium, serum 139 mmol/L 605-731 9487/07/09 potassium, serum 5.4 mmol/L 3.5-5.2 chloride, serum [...] 8.5 % 4.3-6.0 sodium, serum 137 mmol/L 787-543 6091/02/12 potassium, serum 5.1 mmol/L 3.5-5.2 chloride, serum 103 mmol/L 98-107 carbon dioxide, venous blood 24.4 mmol/L 21.0-32.0 blood glucose 261 mg/dL 65-110 calcium, serum 9.0 mg/dL 8.5-10.1 urea nitrogen, blood 44 mg/dL 7-18 creatinine, serum 2.37 mg/dL 0.55-1.30 Lab Report: Lipid Panel - Chemistry cholesterol, serum 139 mg/dL 039-009 0421/09/10 triglyceride, serum, fasting 176 mg/dL 30-200 HDL cholesterol, serum 45 mg/dL 32-96 LDL cholesterol, serum 59 mg/dL 0-130 Lab Report: MICROALBUMIN - Chemistry albumin/creatinine ratio, urine 30 - 300 mg/g mg/g{creat} 0-29 Lab Report: MICROALBUMIN - Lab microalbumin, urine 30 0-19 Encounters Code Encounter Date Provider Facility CPT-14707 Level 4 Est. Patient 09:17:32 LINE PATROLMAN Simon Castillo MD [facility] CPT-00688 Level 3 Est. Patient 11:22:22 LINE PATROLMAN Simon Castillo MD [facility] CPT-36425 Level 3 Est. Patient 09:02:14 CDT Simon Castillo MD [facility] CPT-07897 Level 4 Est. Patient 08:47:25 CDT Simon Castillo MD [facility] CPT-53031 Level 4 Est. Patient 10:17:25 CDT Simon Castillo MD [facility] CPT-08403 Level 4 Est. Patient 10:10:09 LINE PATROLMAN Simon Castillo MD [facility] CPT-65244 Level 4 Est. Patient 11:48:19 CDT Simon Castillo MD [facility] CPT-04653 Level 4 Est. Patient 08:59:29 CDT Simon Castillo MD [facility] CPT-02397 Level 4 Est. Patient 10:52:51 LINE PATROLMAN Simon Castillo MD [facility] CPT-93384 Level 4 Est. Patient 11:50:30 CDT Simon Castillo MD [facility] CPT-86897 Level 4 Est. Patient 09:54:46 CDT Simon Castillo MD [facility] CPT-58312 Level 3 Est. Patient 11:10:14 CDT Simon Castillo MD [facility] CPT-02004 Level 4 Est. Patient 09:44:02 CDT Simon Castillo MD [facility] CPT-09685 Level 3 Est. Patient 09:27:48 CDT Simon Castillo MD [facility] CPT-39636 Level 3 Est. Patient 09:58:06 LINE PATROLMAN Simon Castillo MD [facility] CPT-04602 Level 3 Est. Patient 09:51:35 CDT Simon Castillo MD [facility] Procedures Code Procedure Name Date Entry Date Standard Description CPT-88984 Bone Density 09:37:49 LINE PATROLMAN CPT-39405 Fluzone High Dose 17:20:42 CDT CPT-02087 Prevnar 13 17:20:42 CDT CPT-90183 Administration 2+ single or combination vaccines inc oral 17:20:42 CDT CPT-07189 Administration single or combination vaccine inc oral 17 :20:42 CDT CPT-14731 Hand comp min 3V 09:24:38 CDT CPT-37486 Venipuncture Draw Fee 08:07:29 LINE PATROLMAN CPT-42846 Venipuncture Draw Fee 09:02:51 LINE PATROLMAN CPT-47090 Venipuncture Draw Fee 12:45:08 LINE PATROLMAN CPT-90655 Venipuncture Draw Fee 09:25:31 CDT CPT-G0008 Administration of Influenza Virus Vaccine 14:41:29 CDT CPT-28613 Fluzone High-Dose Intramuscular Suspension 14:41:29 CDT CPT-Cryo Cryotherapy 11:48:20 CDT CPT-09250 EKG Trac and Interp 09:21:58 CDT CPT-87144 Chest 2V Frontal and Lat 09:21:58 CDT CPT-Cryo Cryotherapy 10:54:51 LINE PATROLMAN CPT-93393 Administration 2+ single or combination vaccines inc oral 10:42:19 CDT CPT-53512 Administration single or combination vaccine inc oral 10 :42:19 CDT CPT-19053 Pneumovax 10:42:19 CDT CPT-12619 Influenza High Dose age 65+ 10:42:19 CDT CPT-73547 Administration single or combination vaccine inc oral 13 :18:54 CDT CPT-57933 Influenza High Dose age 65+ 13:18:54 CDT CPT-13341 Venipuncture Draw Fee 11:53:16 CDT CPT-26093 LS spine comp w obliq 11:03:13 CDT CPT-Cryo Cryotherapy 08:27:16 LINE PATROLMAN CPT-16951 Administration single or combination vaccine inc oral 10 :56:34 CDT CPT-81094 Influenza High Dose age 65+ 10:56:34 CDT
--- OUTSIDE RECORDS SUMMARY | 2018-03-31 16:11 | XMS REPORT | Clinical Summary ---
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 Simon Castillo MD Long-term (current) [...] Eddy RMA Rheumatoid arthritis Pharyngitis 462 Active Giles Tatum [employer] Acute pharyngitis FH DIABETES ICD-V18.0 Inactive Simon Castillo MD [...] ICD-729.5 Inactive Simon Castillo MD Steroid use, retirement ICD-V58.65 Inactive Simon Castillo MD Hand pain, bilateral ICD-729.5 Inactive Simon Castillo MD Medication List Medication Instructions Start Date Stop Date Generic Name NDC Status Provider Patient Instruction CLARITIN 10 MG TAB 1 tablet by mouth daily as needed for allergies LORATADINE [id number] Active Jillina Deepti HEMPHILL Active PREDNISONE 20 MG TAB 1 tablet daily for airway inflammation PREDNISONE 78014525968 Active 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 [employer] Active AZITHROMYCIN 250 MG TABS 2 po qd x 1 day, then 1 po qd x 4 days AZITHROMYCIN 76216750813 No Longer Active Jillina Deepti LOYAN Active GLIMEPIRIDE 2 MG ORAL TABS 1 po q a.m. GLIMEPIRIDE 73806899590 Active Simon Castillo MD Active HYDROCODONE-ACETAMINOPHEN 5-325 MG TABS 1 tab by mouth 8 hours as needed for pain HYDROCODONE-ACETAMINOPHEN 03397669173 Active Simon Castillo MD Active TRAMADOL HCL 50 MG TABS 1 po q6hr PRN Pain TRAMADOL HCL 85053721672 No Longer Active Simon Castillo MD Active PREDNISONE 5 MG TAB 1-2 tabs daily for rheumatoid arthritis PREDNISONE 01056888386 Active Simon Castillo MD Active PREDNISONE 5 MG TABS 1 po qod PREDNISONE 70823026939 No Longer Active Simon Castillo MD Active SYMBICORT 160-4.5 MCG/ACT AERO 2 puff BID BUDESONIDE- FORMOTEROL FUMARATE 41403521336 No Longer Active Simon Castillo MD Active FLONASE 50 MCG/ACT SUSP 2 puffs in each nostril daily FLUTICASONE PROPIONATE 58472905115 No Longer Active Simon Castillo MD Active PREDNISONE 20 MG TAB 2 tabs daily for 5 days, then 1 daily for 5 days PREDNISONE 40209560422 No Longer Active Simon Castillo MD Active PREDNISONE 20 MG TAB 2 tabs daily for 5 days, then 1 daily for 5 days, then 0.5 for 4 days PREDNISONE 80864684187 No Longer Active Simon Castillo MD Active CLOTRIMAZOLE 1 % EXT CREA Apply to affected area of feet twice daily PRN Rash CLOTRIMAZOLE 93918895585 Active Simon Castillo MD Active PREDNISONE 20 MG TAB 2 tabs daily for 3 days, 1 tab daily for 3 days, 1/2 tab daily for 2 days PREDNISONE 94006338153 No Longer Active Simon Castillo MD Active AZITHROMYCIN 250 MG TABS 2 po qd x 1 day, then 1 po qd x 4 days AZITHROMYCIN 51889835717 No Longer Active Simon Castillo MD Active LISINOPRIL 10 MG TABS 1 tablet by mouth daily LISINOPRIL 17353339157 Active Simon Castillo MD Active CARVEDILOL 6.25 MG TABS 1 po BID CARVEDILOL 26600610647 Active Simon Castillo MD Active LISINOPRIL-HYDROCHLOROTHIAZIDE 20-12.5 MG TABS 1/2 tab by mouth daily LISINOPRIL-HYDROCHLOROTHIAZIDE 53144993518 No Longer Active Simon Castillo MD Active TRAMADOL HCL 50 MG TABS 1-2 tablets every 6 hours as needed for pain TRAMADOL HCL 04382876595 Active Simon Castillo MD Active PREDNISONE 5 MG TAB Take one po qod PREDNISONE 48880521403 No Longer Active Simon Castillo MD Active GLYBURIDE 5 MG TAB Take one by mouth daily GLYBURIDE 27446056559 No Longer Active Simon Castillo MD Active LEVAQUIN 750 MG TABS 1 po qod x 5 doses LEVOFLOXACIN 36486083227 No Longer Active Simon Castillo MD Active CETIRIZINE HCL 10 MG TABS 1 po qd as needed for allergies CETIRIZINE HCL 74936946613 No Longer Active Simon Castillo MD Active FISH OIL 1000 MG CPDR 1 pill by mouth twice daily for cholesterol OMEGA -3 FATTY ACIDS 02894051085 Active Simon Castillo MD Active BILBERRY CAPS 1 tab daily BILBERRY (VACCINIUM MYRTILLUS) CAPS 75224368946 Active Simon Castillo MD Active ATENOLOL 50 MG TABS Take one by mouth daily ATENOLOL 18437904939 No Longer Active Simon Castillo MD Active FLONASE 50 MCG/ACT SUSP 2 puffs in each nostril daily FLUTICASONE PROPIONATE 37270282667 No Longer Active Simon Castillo MD Active GLYBURIDE 5 MG TAB Take one by mouth daily GLYBURIDE 81226339668 No Longer Active Simon Castillo MD Active SYMBICORT 80-4.5 MCG/ACT AERO 2 puffs twice a day BUDESONIDE-FORMOTEROL FUMARATE 36712140368 No Longer Active Simon Castillo MD Active PREDNISONE 20 MG TAB 2 tabs daily for 4 days, 1 tab daily for 4 days, 1/2 tab daily for 4 days PREDNISONE 85436157031 No Longer Active Simon Castillo MD Active AMOXICILLIN 500 MG CAPS 2 po BID x 10 days AMOXICILLIN 50668577064 No Longer Active Simon Castillo MD Active METFORMIN HCL 1000 MG TABS 1 by mount twice a day METFORMIN HCL 68240041003 No Longer Active Simon Castillo MD Active LUTEIN-ZEAXANTHIN 6-1 MG TABS Take 2 by mouth daily LUTEIN-ZEAXANTHIN 65414766132 Active Simon Castillo MD Active IBUPROFEN 800 MG TABS Take 1 tab every 6 hrs prn IBUPROFEN 15321189761 No Longer Active Simon Castillo MD Active GLYBURIDE 2.5 MG TABS Take one by mouth daily GLYBURIDE 58519866165 No Longer Active Simon Castillo MD Active LANCETS MISC 2 qd LANCETS 20478279344 Active Pamela Conde Active ACACIA CONTOUR TEST STRP Use with testing twice daily GLUCOSE BLOOD 23803402002 Active Simon Castillo MD Active ACACIA ASPIRIN 325 MG TABS Take one by mouth daily ASPIRIN 11509421696 Active Pamela Conde Active GLYBURIDE 2.5 MG TABS Take one by mouth daily GLYBURIDE 2.5 MG TABS 255710 GLYBURIDE Inactive PREDNISONE 20 MG TAB 2 tabs daily for 4 days, 1 tab daily for 4 days, 1/2 tab daily for 4 days PREDNISONE 20 MG TAB 454862 PREDNISONE Inactive SYMBICORT 80-4.5 MCG/ACT AERO 2 puffs twice a day SYMBICORT 80-4.5 MCG/ACT AERO BUDESONIDE-FORMOTEROL FUMARATE Inactive FLONASE 50 MCG/ACT SUSP 2 puffs in each nostril daily FLONASE 50 MCG/ACT SUSP 687720 FLUTICASONE PROPIONATE Inactive ATENOLOL 50 MG TABS Take one by mouth daily ATENOLOL 50 MG TABS 736663 ATENOLOL Inactive CETIRIZINE HCL 10 MG TABS 1 po qd as needed for allergies CETIRIZINE HCL 10 MG TABS 4914985 CETIRIZINE HCL Inactive LEVAQUIN 750 MG TABS 1 po qod x 5 doses LEVAQUIN 750 MG TABS 817813 LEVOFLOXACIN Inactive GLYBURIDE 5 MG TAB Take one by mouth daily GLYBURIDE 5 MG TAB 713932 GLYBURIDE Inactive PREDNISONE 5 MG TAB Take one po qod PREDNISONE 5 MG TAB 407527 PREDNISONE Inactive PREDNISONE 20 MG TAB 2 tabs daily for 5 days, then 1 daily for 5 days PREDNISONE 20 MG TAB 472830 PREDNISONE Inactive FLONASE 50 MCG/ACT SUSP 2 puffs in each nostril daily FLONASE 50 MCG/ACT SUSP 180271 FLUTICASONE PROPIONATE Inactive SYMBICORT 160-4.5 MCG/ACT AERO 2 puff BID SYMBICORT 160-4.5 MCG/ACT AERO BUDESONIDE-FORMOTEROL FUMARATE Inactive PREDNISONE 5 MG TABS 1 po qod PREDNISONE 5 MG TABS 587109 PREDNISONE Inactive AMOXICILLIN 500 MG CAPS 2 po BID x 10 days AMOXICILLIN 500 MG CAPS 376210 AMOXICILLIN Inactive GLYBURIDE 5 MG TAB Take one by mouth daily GLYBURIDE 5 MG TAB 640884 GLYBURIDE Inactive AZITHROMYCIN 250 MG TABS 2 po qd x 1 day, then 1 po qd x 4 days AZITHROMYCIN 250 MG TABS 2058997 AZITHROMYCIN Inactive PREDNISONE 20 MG TAB 2 tabs daily for 3 days, 1 tab daily for 3 days, 1/2 tab daily for 2 days PREDNISONE 20 MG TAB 238962 PREDNISONE Inactive PREDNISONE 20 MG TAB 2 tabs daily for 5 days, then 1 daily for 5 days, then 0.5 for 4 days PREDNISONE 20 MG TAB 969886 PREDNISONE Inactive AZITHROMYCIN 250 MG TABS 2 po qd x 1 day, then 1 po qd x 4 days AZITHROMYCIN 250 MG TABS 6154052 AZITHROMYCIN Inactive Immunizations Vaccine Administration Date Value [...] Panel - Chemistry sodium, serum 132 mmol/L 033-717 1030/10/26 carbon dioxide, venous blood 22.8 mmol/L 21.0-32.0 [...] Panel - Chemistry sodium, serum 139 mmol/L 661-384 1292/03/17 carbon dioxide, venous blood 29.0 mmol/L 21.0-32.0 [...] Rate - Chemistry sodium, serum 136 mmol/L 709-753 0620/09/18 carbon dioxide, venous blood 24.3 mmol/L 21.0-32.0 [...] HGBA1C - Chemistry sodium, serum 139 mmol/L 773-162 0284/07/09 potassium, serum 5.4 mmol/L 3.5-5.2 chloride, serum [...] 8.5 % 4.3-6.0 sodium, serum 137 mmol/L 250-922 3091/02/12 potassium, serum 5.1 mmol/L 3.5-5.2 chloride, serum 103 mmol/L 98-107 carbon dioxide, venous blood 24.4 mmol/L 21.0-32.0 blood glucose 261 mg/dL 65-110 calcium, serum 9.0 mg/dL 8.5-10.1 urea nitrogen, blood 44 mg/dL 7-18 creatinine, serum 2.37 mg/dL 0.55-1.30 Lab Report: Lipid Panel - Chemistry cholesterol, serum 139 mg/dL 232-703 8800/09/10 triglyceride, serum, fasting 176 mg/dL 30-200 HDL cholesterol, serum 45 mg/dL 32-96 LDL cholesterol, serum 59 mg/dL 0-130 Lab Report: MICROALBUMIN - Chemistry albumin/creatinine ratio, urine 30 - 300 mg/g mg/g{creat} 0-29 Lab Report: MICROALBUMIN - Lab microalbumin, urine 30 0-19 Encounters Code Encounter Date Provider Facility CPT-43317 Level 3 Est. Patient 09:08:44 CDT Giles Tatum APRN [facility] CPT-05524 Level 4 Est. Patient 09:17:32 [employer]UL[employer]SEL[employer] Simon Castillo MD [facility] CPT-75845 Level 3 Est. Patient 11:22:22 [employer] Simon Castillo MD [facility] CPT-27800 Level 3 Est. Patient 09:02:14 CDT Simon Castillo MD [facility] CPT-01545 Level 4 Est. Patient 08:47:25 CDT Simon Castillo MD [facility] CPT-24598 Level 4 Est. Patient 10:17:25 CDT Simon Castillo MD [facility] CPT-47935 Level 4 Est. Patient 10:10:09 [employer] Simon Castillo MD [facility] CPT-29172 Level 4 Est. Patient 11:48:19 CDT Simon Castillo MD [facility] CPT-65552 Level 4 Est. Patient 08:59:29 CDT Simon Castillo MD [facility] CPT-49779 Level 4 Est. Patient 10:52:51 [employer] Simon Castillo MD [facility] CPT-57739 Level 4 Est. Patient 11:50:30 CDT Simon Castillo MD [facility] CPT-51803 Level 4 Est. Patient 09:54:46 CDT Simon Castillo MD [facility] CPT-45553 Level 3 Est. Patient 11:10:14 CDT Simon Castillo MD [facility] CPT-57563 Level 4 Est. Patient 09:44:02 CDT Simon Castillo MD [facility] CPT-26119 Level 3 Est. Patient 09:27:48 CDT Simon Castillo MD [facility] CPT-25229 Level 3 Est. Patient 09:58:06 [employer] Simon Castillo MD [facility] CPT-68205 Level 3 Est. Patient 09:51:35 CDT Simon Castillo MD [facility] Procedures Code Procedure Name Date Entry Date Standard Description CPT-70464 Venipuncture Draw Fee 13:33:02 CDT CPT-35481 Bone Density 09:37:49 [employer]SEL[employer] CPT-67982 Fluzone High Dose 17:20:42 CDT CPT-82157 Prevnar 13 17:20:42 CDT CPT-01637 Administration 2+ single or combination vaccines inc oral 17:20:42 CDT CPT-86761 Administration single or combination vaccine inc oral 17 :20:42 CDT CPT-88451 Hand comp min 3V 09:24:38 CDT CPT-50641 Venipuncture Draw Fee 08:07:29 [employer]UL[employer] COUNSEL[employer] CPT-30245 Venipuncture Draw Fee 09:02:51 [employer] COUNSEL[employer] CPT-15371 Venipuncture Draw Fee 12:45:08 [employer] COUN[employer] CPT-30323 Venipuncture Draw Fee 09:25:31 CDT CPT-G0008 Administration of Influenza Virus Vaccine 14:41:29 CDT CPT-42887 Fluzone High-Dose Intramuscular Suspension 14:41:29 CDT CPT-Cryo Cryotherapy 11:48:20 CDT CPT-07258 EKG Trac and Interp 09:21:58 CDT CPT-72390 Chest 2V Frontal and Lat 09:21:58 CDT CPT-Cryo Cryotherapy 10:54:51 [employer] CPT-14989 Administration 2+ single or combination vaccines inc oral 10:42:19 CDT CPT-22689 Administration single or combination vaccine inc oral 10 :42:19 CDT CPT-95969 Pneumovax 10:42:19 CDT CPT-22005 Influenza High Dose age 65+ 10:42:19 CDT CPT-30249 Administration single or combination vaccine inc oral 13 :18:54 CDT CPT-59583 Influenza High Dose age 65+ 13:18:54 CDT CPT-18890 Venipuncture Draw Fee 11:53:16 CDT CPT-69824 LS spine comp w obliq 11:03:13 CDT CPT-Cryo Cryotherapy 08:27:16 [employer]UL[employer] COUN[employer] CPT-18020 Administration single or combination vaccine inc oral 10 :56:34 CDT CPT-38772 Influenza High Dose age 65+ 10:56:34 CDT
--- OUTSIDE RECORDS SUMMARY | 2018-03-31 16:12 | XMS REPORT | Clinical Summary ---
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 Rosy Eddy RMA Rheumatoid arthritis Pharyngitis 462 Active 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 TECHNICAL COORDINATOR Acute pharyngitis Dyspnea 786.09 Active 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 TECHNICAL COORDINATOR Other dyspnea and respiratory abnormality Peripheral edema 782.3 Active 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 TECHNICAL COORDINATOR Edema FH DIABETES ICD-V18.0 Inactive Simon Castillo MD FH LUNG CANCER ICD-V16.1 Inactive Simon Castillo MD ABDOMINAL TENDERNESS ICD-789.60 Inactive Simon Castillo MD CHEST WALL PAIN, HX OF ICD-V15.89 Inactive Simon Castillo MD SEBORRHEIC KERATOSIS ICD-702.19 Inactive Simon Castillo MD BRONCHITIS, ACUTE ICD-466.0 Inactive iSmon Castillo MD SINUSITIS, ACUTE ICD-461.9 Inactive Simon [...] ICD-729.5 Inactive Simon Castillo MD Steroid use, fpc ICD-V58.65 Inactive Simon Castillo MD Hand pain, bilateral ICD-729.5 Kerry Castillo MD Medication List Medication Instructions Start Date Stop Date Generic Name NDC Status Provider Patient Instruction PREDNISONE 20 MG TAB 1 tablet daily for airway inflammation 02/25 PREDNISONE 27532431392 No Longer Active Jillina Deepti HEMPHILL Active SULFASALAZINE 500 MG ORAL TBEC 2 tabs BID SULFASALAZINE 82525422002 Active Jillina Deepti HEMPHILL Active CLARITIN 10 MG TAB 1 tablet by mouth daily as needed for allergies LORATADINE 89360836040 Active Jillina Deepti HEMPHILL Active AZITHROMYCIN 250 MG TABS 2 po qd x 1 day, then 1 po qd x 4 days AZITHROMYCIN 17749363503 No Longer Active Jillina Fratico HEMPHILL Active GLIMEPIRIDE 2 MG ORAL TABS 1 po q a.m. GLIMEPIRIDE 07397565425 Active Simon Castillo MD Active HYDROCODONE-ACETAMINOPHEN 5-325 MG TABS 1 tab by mouth 8 hours as needed for pain HYDROCODONE-ACETAMINOPHEN 44078847194 Active Simon Castillo MD Active TRAMADOL HCL 50 MG TABS 1 po q6hr PRN Pain TRAMADOL HCL 57459915288 No Longer Active Simon Castillo MD Active PREDNISONE 5 MG TAB 1-2 tabs daily for rheumatoid arthritis PREDNISONE 55681482645 Active Simon Castillo MD Active PREDNISONE 5 MG TABS 1 po qod PREDNISONE 13174142194 No Longer Active Simon Castillo MD Active SYMBICORT 160-4.5 MCG/ACT AERO 2 puff BID BUDESONIDE- FORMOTEROL FUMARATE 86931480769 No Longer Active Simon Castillo MD Active FLONASE 50 MCG/ACT SUSP 2 puffs in each nostril daily FLUTICASONE PROPIONATE 49032401339 No Longer Active Simon Castillo MD Active PREDNISONE 20 MG TAB 2 tabs daily for 5 days, then 1 daily for 5 days PREDNISONE 11540886607 No Longer Active Simon Castillo MD Active PREDNISONE 20 MG TAB 2 tabs daily for 5 days, then 1 daily for 5 days, then 0.5 for 4 days PREDNISONE 59802820797 No Longer Active Simon Castillo MD Active CLOTRIMAZOLE 1 % EXT CREA Apply to affected area of feet twice daily PRN Rash CLOTRIMAZOLE 50358347275 Active Simon Castillo MD Active PREDNISONE 20 MG TAB 2 tabs daily for 3 days, 1 tab daily for 3 days, 1/2 tab daily for 2 days PREDNISONE 66055155468 No Longer Active Simon Castillo MD Active AZITHROMYCIN 250 MG TABS 2 po qd x 1 day, then 1 po qd x 4 days AZITHROMYCIN 52431357935 No Longer Active Simon Castillo MD Active LISINOPRIL 10 MG TABS 1 tablet by mouth daily LISINOPRIL 73390822068 Active Simon Castillo MD Active CARVEDILOL 6.25 MG TABS 1 po BID CARVEDILOL 98280040717 Active Simon Castillo MD Active LISINOPRIL-HYDROCHLOROTHIAZIDE 20-12.5 MG TABS 1/2 tab by mouth daily LISINOPRIL-HYDROCHLOROTHIAZIDE 32668056442 No Longer Active Simon Castillo MD Active TRAMADOL HCL 50 MG TABS 1-2 tablets every 6 hours as needed for pain TRAMADOL HCL 94883329970 Active Giles Tatum KANCHAN Active PREDNISONE 5 MG TAB Take one po qod PREDNISONE 26520728029 No Longer Active Simon Castillo MD Active GLYBURIDE 5 MG TAB Take one by mouth daily GLYBURIDE 62646233507 No Longer Active Simon Castillo MD Active LEVAQUIN 750 MG TABS 1 po qod x 5 doses LEVOFLOXACIN 76694239507 No Longer Active Simon Castillo MD Active CETIRIZINE HCL 10 MG TABS 1 po qd as needed for allergies CETIRIZINE HCL 53769031101 No Longer Active Simon Castillo MD Active FISH OIL 1000 MG CPDR 1 pill by mouth twice daily for cholesterol OMEGA -3 FATTY ACIDS 41141924556 Active Simon Castillo MD Active BILBERRY CAPS 1 tab daily BILBERRY (VACCINIUM MYRTILLUS) CAPS 73852066913 Active Simon Castillo MD Active ATENOLOL 50 MG TABS Take one by mouth daily ATENOLOL 82350346478 No Longer Active Simon Castillo MD Active FLONASE 50 MCG/ACT SUSP 2 puffs in each nostril daily FLUTICASONE PROPIONATE 20625985464 No Longer Active Simon Castillo MD Active GLYBURIDE 5 MG TAB Take one by mouth daily GLYBURIDE 73167571698 No Longer Active Simon Castillo MD Active SYMBICORT 80-4.5 MCG/ACT AERO 2 puffs twice a day BUDESONIDE-FORMOTEROL FUMARATE 84590404193 No Longer Active Simon Castillo MD Active PREDNISONE 20 MG TAB 2 tabs daily for 4 days, 1 tab daily for 4 days, 1/2 tab daily for 4 days PREDNISONE 81910303375 No Longer Active Simon Castillo MD Active AMOXICILLIN 500 MG CAPS 2 po BID x 10 days AMOXICILLIN 76063299275 No Longer Active Simon Castillo MD Active METFORMIN HCL 1000 MG TABS 1 by mounth twice a day METFORMIN HCL 24536645660 No Longer Active Simon Castillo MD Active LUTEIN-ZEAXANTHIN 6-1 MG TABS Take 2 by mouth daily LUTEIN-ZEAXANTHIN 12892357673 Active Simon Castillo MD Active IBUPROFEN 800 MG TABS Take 1 tab every 6 hrs prn IBUPROFEN 43613100398 No Longer Active Simon Castillo MD Active GLYBURIDE 2.5 MG TABS Take one by mouth daily GLYBURIDE 24467858360 No Longer Active Simon Castillo MD Active LANCETS MISC 2 qd LANCETS 54636478447 Active Pamela Conde Active ACACIA CONTOUR TEST STRP Use with testing twice daily GLUCOSE BLOOD 88334734014 Active Simon Castillo MD Active ACACIA ASPIRIN 325 MG TABS Take one by mouth daily ASPIRIN 87222202789 Active Pamela Conde Active GLYBURIDE 2.5 MG TABS Take one by mouth daily GLYBURIDE 2.5 MG TABS 337822 GLYBURIDE Inactive PREDNISONE 20 MG TAB 2 tabs daily for 4 days, 1 tab daily for 4 days, 1/2 tab daily for 4 days PREDNISONE 20 MG TAB 453072 PREDNISONE Inactive SYMBICORT 80-4.5 MCG/ACT AERO 2 puffs twice a day SYMBICORT 80-4.5 MCG/ACT AERO BUDESONIDE-FORMOTEROL FUMARATE Inactive FLONASE 50 MCG/ACT SUSP 2 puffs in each nostril daily FLONASE 50 MCG/ACT SUSP 671249 FLUTICASONE PROPIONATE Inactive ATENOLOL 50 MG TABS Take one by mouth daily ATENOLOL 50 MG TABS 202158 ATENOLOL Inactive CETIRIZINE HCL 10 MG TABS 1 po qd as needed for allergies CETIRIZINE HCL 10 MG TABS 1890133 CETIRIZINE HCL Inactive LEVAQUIN 750 MG TABS 1 po qod x 5 doses LEVAQUIN 750 MG TABS 663798 LEVOFLOXACIN Inactive GLYBURIDE 5 MG TAB Take one by mouth daily GLYBURIDE 5 MG TAB 271376 GLYBURIDE Inactive PREDNISONE 5 MG TAB Take one po qod PREDNISONE 5 MG TAB 874377 PREDNISONE Inactive PREDNISONE 20 MG TAB 2 tabs daily for 5 days, then 1 daily for 5 days PREDNISONE 20 MG TAB 886004 PREDNISONE Inactive FLONASE 50 MCG/ACT SUSP 2 puffs in each nostril daily FLONASE 50 MCG/ACT SUSP 473452 FLUTICASONE PROPIONATE Inactive SYMBICORT 160-4.5 MCG/ACT AERO 2 puff BID SYMBICORT 160-4.5 MCG/ACT AERO BUDESONIDE-FORMOTEROL FUMARATE Inactive PREDNISONE 5 MG TABS 1 po qod PREDNISONE 5 MG TABS 314349 PREDNISONE Inactive PREDNISONE 20 MG TAB 1 tablet daily for airway inflammation 02/25 PREDNISONE 20 MG TAB 368278 PREDNISONE Inactive AMOXICILLIN 500 MG CAPS 2 po BID x 10 days AMOXICILLIN 500 MG CAPS 187965 AMOXICILLIN Inactive GLYBURIDE 5 MG TAB Take one by mouth daily GLYBURIDE 5 MG TAB 243667 GLYBURIDE Inactive AZITHROMYCIN 250 MG TABS 2 po qd x 1 day, then 1 po qd x 4 days AZITHROMYCIN 250 MG TABS 5346694 AZITHROMYCIN Inactive PREDNISONE 20 MG TAB 2 tabs daily for 3 days, 1 tab daily for 3 days, 1/2 tab daily for 2 days PREDNISONE 20 MG TAB 846422 PREDNISONE Inactive PREDNISONE 20 MG TAB 2 tabs daily for 5 days, then 1 daily for 5 days, then 0.5 for 4 days PREDNISONE 20 MG TAB 655063 PREDNISONE Inactive AZITHROMYCIN 250 MG TABS 2 po qd x 1 day, then 1 po qd x 4 days AZITHROMYCIN 250 MG TABS 0450148 AZITHROMYCIN Inactive Immunizations Vaccine Administration Date Value [...] Panel - Chemistry sodium, serum 132 mmol/L 507-931 4507/10/26 carbon dioxide, venous blood 22.8 mmol/L 21.0-32.0 [...] Panel - Chemistry sodium, serum 139 mmol/L 161-752 3878/03/17 carbon dioxide, venous blood 29.0 mmol/L 21.0-32.0 [...] Rate - Chemistry sodium, serum 136 mmol/L 478-488 7729/09/18 carbon dioxide, venous blood 24.3 mmol/L 21.0-32.0 [...] HGBA1C - Chemistry sodium, serum 139 mmol/L 167-079 1708/07/09 potassium, serum 5.4 mmol/L 3.5-5.2 chloride, serum [...] 8.5 % 4.3-6.0 sodium, serum 137 mmol/L 741-220 3862/02/12 potassium, serum 5.1 mmol/L 3.5-5.2 chloride, serum 103 mmol/L 98-107 carbon dioxide, venous blood 24.4 mmol/L 21.0-32.0 blood glucose 261 mg/dL 65-110 calcium, serum 9.0 mg/dL 8.5-10.1 urea nitrogen, blood 44 mg/dL 7-18 creatinine, serum 2.37 mg/dL 0.55-1.30 Lab Report: Lipid Panel - Chemistry cholesterol, serum 139 mg/dL 096-507 8647/09/10 triglyceride, serum, fasting 176 mg/dL 30-200 HDL cholesterol, serum 45 mg/dL 32-96 LDL cholesterol, serum 59 mg/dL 0-130 Lab Report: MICROALBUMIN - Chemistry albumin/creatinine ratio, urine 30 - 300 mg/g mg/g{creat} 0-29 Lab Report: MICROALBUMIN - Lab microalbumin, urine 30 0-19 Encounters Code Encounter Date Provider Facility CPT-54874 Level 3 Est. Patient 08:41:43 CDT Giles Tatum [facility] CPT-52055 Level 3 Est. Patient 08:40:53 CDT Giles Tatum [facility] CPT-26453 Level 3 Est. Patient 08:36:52 CDT Giles Tatum [facility] CPT-82669 Level 3 Est. [facility] 09:08[facility] Level 4 Est. Patient 09:17:32 MARKETING UNDERWRITER Simon Castillo MD [facility] CPT-87103 Level 3 Est. Patient 11:22:22 MARKETING UNDERWRITER Simon Castillo MD [facility] CPT-41243 Level 3 Est. Patient 09:02:14 CDT Simon Castillo MD [facility] CPT-87657 Level 4 Est. Patient 08:47:25 CDT Simon Castillo MD [facility] CPT-79960 Level 4 Est. Patient 10:17:25 CDT Simon Castillo MD [facility] CPT-64523 Level 4 Est. Patient 10:10:09 MARKETING UNDERWRITER Simon Castillo MD [facility] CPT-71376 Level 4 Est. Patient 11:48:19 CDT Simon Castillo MD [facility] CPT-30611 Level 4 Est. Patient 08:59:29 CDT Simon Castillo MD [facility] CPT-84439 Level 4 Est. Patient 10:52:51 MARKETING UNDERWRITER Simon Castillo MD [facility] CPT-06776 Level 4 Est. Patient 11:50:30 CDT Simon Castillo MD [facility] CPT-83265 Level 4 Est. Patient 09:54:46 CDT Simon Castillo MD [facility] CPT-14431 Level 3 Est. Patient 11:10:14 CDT Simon Castillo MD [facility] CPT-12682 Level 4 Est. Patient 09:44:02 CDT Simon Csatillo MD [facility] CPT-40356 Level 3 Est. Patient 09:27:48 CDT Simon Castillo MD [facility] CPT-57948 Level 3 Est. Patient 09:58:06 MARKETING UNDERWRITER Simon Castillo MD [facility] CPT-69143 Level 3 Est. Patient 09:51:35 CDT Simon Castillo MD [facility] Procedures Code Procedure Name Date Entry Date Standard Description CPT-58753 Chest 2V Frontal and Lat - XRAY USE ONLY 09:00:14 CDT CPT-35504 Venipuncture Draw Fee 13:33:02 CDT CPT-72196 Bone Density 09:37:49 MARKETING UNDERWRITER CPT-07885 Fluzone High Dose 17:20:42 CDT CPT-37083 Prevnar 13 17:20:42 CDT CPT-40954 Administration 2+ single or combination vaccines inc oral 17:20:42 CDT CPT-23682 Administration single or combination vaccine inc oral 17 :20:42 CDT CPT-30924 Hand comp min 3V 09:24:38 CDT CPT-78013 Venipuncture Draw Fee 08:07:29 MARKETING UNDERWRITER CPT-43889 Venipuncture Draw Fee 09:02:51 MARKETING UNDERWRITER CPT-30575 Venipuncture Draw Fee 12:45:08 MARKETING UNDERWRITER CPT-19009 Venipuncture Draw Fee 09:25:31 CDT CPT-G0008 Administration of Influenza Virus Vaccine 14:41:29 CDT CPT-82510 Fluzone High-Dose Intramuscular Suspension 14:41:29 CDT CPT-Cryo Cryotherapy 11:48:20 CDT CPT-58783 EKG Trac and Interp 09:21:58 CDT CPT-24540 Chest 2V Frontal and Lat 09:21:58 CDT CPT-Cryo Cryotherapy 10:54:51 MARKETING UNDERWRITER CPT-79419 Administration 2+ single or combination vaccines inc oral 10:42:19 CDT CPT-32208 Administration single or combination vaccine inc oral 10 :42:19 CDT CPT-95803 Pneumovax 10:42:19 CDT CPT-96238 Influenza High Dose age 65+ 10:42:19 CDT CPT-85190 Administration single or combination vaccine inc oral 13 :18:54 CDT CPT-28579 Influenza High Dose age 65+ 13:18:54 CDT CPT-41482 Venipuncture Draw Fee 11:53:16 CDT CPT-83726 LS spine comp w obliq 11:03:13 CDT CPT-Cryo Cryotherapy 08:27:16 MARKETING UNDERWRITER CPT-45336 Administration single or combination vaccine inc oral 10 :56:34 CDT CPT-28496 Influenza High Dose age 65+ 10:56:34 CDT
--- OUTSIDE RECORDS SUMMARY | 2018-03-31 16:13 | XMS REPORT | Clinical Summary ---
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 Resolved iSmon Castillo MD Rheumatoid arthritis Pharyngitis 462 Resolved Simon Castillo MD Acute pharyngitis Dyspnea 786.09 Resolved Simon Castillo MD Other dyspnea and respiratory abnormality Peripheral edema 782.3 Resolved Simon Castillo MD Edema 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 Simon Castillo MD Other specified erythematous conditions Pneumonia, right lower lobe 486 Resolved Simon Castillo MD Pneumonia, organism unspecified Leg edema, bilateral 782.3 Active Simon Castillo MD Edema FH DIABETES ICD-V18.0 Inactive Simon Castillo MD FH LUNG CANCER ICD-V16.1 Inactive Simon Castillo MD ABDOMINAL TENDERNESS ICD-789.60 Inactive Simon Castillo MD CHEST WALL PAIN, HX OF ICD-V15.89 Inactive Simon Castillo MD SEBORRHEIC KERATOSIS ICD-702.19 Inactive Simon Castillo MD BRONCHITIS, ACUTE ICD-466.0 Inactive Simon Castillo MD SINUSITIS, ACUTE ICD-461.9 Inactive Simon Castillo MD ABDOMINAL PAIN RIGHT LOWER QUADRANT ICD-789.03 Kerry Castillo MD SCIATICA ICD-724.3 Kerry Castillo MD 2012 BENIGN PROSTATIC HYPERTROPHY, MILD, HX OF ICD-V13.89 Kerry Castillo MD Obesity ICD-278.00 Kerry Castillo MD 2013 Chest pain ICD-786.50 Kerry Castillo MD Cough ICD-786.2 Kerry Castillo MD Bronchitis, acute ICD-466.0 Kerry Castillo MD Tinea pedis ICD-110.4 Kerry Castillo MD Hand pain, bilateral ICD-729.5 Kerry Castillo MD Steroid use, terminal carman ICD-V58.65 Kerry Castillo MD Hand pain, bilateral ICD-729.5 Kerry Castillo MD 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 Kerry Castillo MD Pharyngitis ICD-462 Kerry Castillo MD Dyspnea ICD-786.09 Kerry Castlilo MD 2016 Peripheral edema ICD-782.3 Kerry Castillo MD Pneumonia, right lower lobe ICD-486 Kerry Castillo MD Medication List Medication Instructions Start Date Stop Date Generic Name NDC Status Provider Patient Instruction PIOGLITAZONE HCL 15 MG ORAL TABS 1 po qd PIOGLITAZONE HCL 85830060646 Lin Castillo MD Active GLIMEPIRIDE 4 MG ORAL TABS 1 po BID GLIMEPIRIDE 74215508290 Active Simon Castillo MD Active ASPIRIN EC 81 MG ORAL TBEC 1 po qd ASPIRIN 61204285272 Active Simon Castillo MD Active CLOTRIMAZOLE 1 % EXT CREA Apply to affected area of feet twice daily PRN Rash CLOTRIMAZOLE 32589442852 No Longer Active Simon Castillo MD Active PREDNISONE 5 MG TAB 1 po BID PREDNISONE 06398753794 Active Simon Castillo MD Active FISH OIL 1000 MG CPDR 1 po BID OMEGA-3 FATTY ACIDS 85366767124 Active Simon Castillo MD Active LISINOPRIL 10 MG TABS 1 p qd LISINOPRIL 88591541214 Active Simon Castillo MD Active CLARITIN 10 MG TAB 1 tablet by mouth daily as needed for allergies LORATADINE 72943284595 No Longer Active Simon Castillo MD Active TRIAMCINOLONE ACETONIDE 0.1 % OINT Apply to affected areas TID for up to 2 weeks TRIAMCINOLONE ACETONIDE 77349324976 No Longer Active Simon Castillo MD Active LASIX 20 MG TAB 1 tablet by mouth daily x 2 days FUROSEMIDE 64750192106 No Longer Active Simon Castillo MD Active SULFASALAZINE 500 MG ORAL TBEC 2 tabs BID SULFASALAZINE 21491323193 No Longer Active Neto Oshea DO Active PREDNISONE 20 MG TAB 2 tabs daily for 3 days, 1 tab daily for 3 days, 1/2 tab daily for 2 days PREDNISONE 61300568778 No Longer Active Jilltriston Tatum APRN Active PREDNISONE 20 MG TAB 1 tablet daily for airway inflammation 02/25 PREDNISONE 09377174292 No Longer Active 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 [employer] Active AZITHROMYCIN 250 MG TABS 2 po qd x 1 day, then 1 po qd x 4 days AZITHROMYCIN 69694658812 No Longer Active Giles Tatum APRN Active HYDROCODONE-ACETAMINOPHEN 5-325 MG TABS 1 tab by mouth 8 hours as needed for pain HYDROCODONE-ACETAMINOPHEN 48845500079 Active Simon Castillo MD Active TRAMADOL HCL 50 MG TABS 1 po q6hr PRN Pain TRAMADOL HCL 06889535825 No Longer Active Simon Castillo MD Active PREDNISONE 5 MG TABS 1 po qod PREDNISONE 63577421015 No Longer Active Simon Castillo MD Active SYMBICORT 160-4.5 MCG/ACT AERO 2 puff BID BUDESONIDE- FORMOTEROL FUMARATE 68196165751 No Longer Active Simon Castillo MD Active FLONASE 50 MCG/ACT SUSP 2 puffs in each nostril daily FLUTICASONE PROPIONATE 40122704753 No Longer Active Simon Castillo MD Active PREDNISONE 20 MG TAB 2 tabs daily for 5 days, then 1 daily for 5 days PREDNISONE 83891500441 No Longer Active Simon Castillo MD Active PREDNISONE 20 MG TAB 2 tabs daily for 5 days, then 1 daily for 5 days, then 0.5 for 4 days PREDNISONE 17259923514 No Longer Active Simon Castillo MD Active PREDNISONE 20 MG TAB 2 tabs daily for 3 days, 1 tab daily for 3 days, 1/2 tab daily for 2 days PREDNISONE 65144344783 No Longer Active Simon Castillo MD Active AZITHROMYCIN 250 MG TABS 2 po qd x 1 day, then 1 po qd x 4 days AZITHROMYCIN 68143765915 No Longer Active Simon Castillo MD Active CARVEDILOL 6.25 MG TABS 1 po BID CARVEDILOL 63894053782 Active Simon Castillo MD Active LISINOPRIL-HYDROCHLOROTHIAZIDE 20-12.5 MG TABS 1/2 tab by mouth daily LISINOPRIL-HYDROCHLOROTHIAZIDE 77613506130 No Longer Active Simon Castillo MD Active TRAMADOL HCL 50 MG TABS 1-2 tablets every 6 hours as needed for pain TRAMADOL HCL 59281134162 Active Giles Tatum APRN Active PREDNISONE 5 MG TAB Take one po qod PREDNISONE 57431587466 No Longer Active Simon Castillo MD Active GLYBURIDE 5 MG TAB Take one by mouth daily GLYBURIDE 14812892603 No Longer Active Simon Castillo MD Active LEVAQUIN 750 MG TABS 1 po qod x 5 doses LEVOFLOXACIN 64790030059 No Longer Active Simon Castillo MD Active CETIRIZINE HCL 10 MG TABS 1 po qd as needed for allergies CETIRIZINE HCL 61735929976 No Longer Active Simon Castillo MD Active BILBERRY CAPS 1 tab daily BILBERRY (VACCINIUM MYRTILLUS) CAPS 29085521159 Active Simon Castillo MD Active ATENOLOL 50 MG TABS Take one by mouth daily ATENOLOL 25120946795 No Longer Active Simon Castillo MD Active FLONASE 50 MCG/ACT SUSP 2 puffs in each nostril daily FLUTICASONE PROPIONATE 87506089253 No Longer Active Simon Castillo MD Active GLYBURIDE 5 MG TAB Take one by mouth daily GLYBURIDE 19069363713 No Longer Active Simon Castillo MD Active SYMBICORT 80-4.5 MCG/ACT AERO 2 puffs twice a day BUDESONIDE-FORMOTEROL FUMARATE 27498920728 No Longer Active Simon Castillo MD Active PREDNISONE 20 MG TAB 2 tabs daily for 4 days, 1 tab daily for 4 days, 1/2 tab daily for 4 days PREDNISONE 93761444931 No Longer Active Simon Castillo MD Active AMOXICILLIN 500 MG CAPS 2 po BID x 10 days AMOXICILLIN 24575651826 No Longer Active Simon Castillo MD Active METFORMIN HCL 1000 MG TABS 1 by [facility] twice a day METFORMIN HCL 39511906318 No Longer Active Simon Castillo MD Active LUTEIN-ZEAXANTHIN 6-1 MG TABS Take 2 by mouth daily LUTEIN-ZEAXANTHIN 12760060116 Active Simon Castillo MD Active IBUPROFEN 800 MG TABS Take 1 tab every 6 hrs prn IBUPROFEN 81705259165 No Longer Active Simon Castillo MD Active GLYBURIDE 2.5 MG TABS Take one by mouth daily GLYBURIDE 70049525380 No Longer Active Simon Castillo MD Active LANCETS MISC 2 qd LANCETS 21425048853 Active Pamela Conde Active ACACIA CONTOUR TEST STRP Use with testing twice daily GLUCOSE BLOOD 74088326192 Active Simon Castillo MD Active GLYBURIDE 2.5 MG TABS Take one by mouth daily GLYBURIDE 2.5 MG TABS 075740 GLYBURIDE Inactive PREDNISONE 20 MG TAB 2 tabs daily for 4 days, 1 tab daily for 4 days, 1/2 tab daily for 4 days PREDNISONE 20 MG TAB 400625 PREDNISONE Inactive SYMBICORT 80-4.5 MCG/ACT AERO 2 puffs twice a day SYMBICORT 80-4.5 MCG/ACT AERO BUDESONIDE-FORMOTEROL FUMARATE Inactive FLONASE 50 MCG/ACT SUSP 2 puffs in each nostril daily FLONASE 50 MCG/ACT SUSP FLUTICASONE PROPIONATE Inactive ATENOLOL 50 MG TABS Take one by mouth daily ATENOLOL 50 MG TABS 202636 ATENOLOL Inactive CETIRIZINE HCL 10 MG TABS 1 po qd as needed for allergies CETIRIZINE HCL 10 MG TABS 8465705 CETIRIZINE HCL Inactive LEVAQUIN 750 MG TABS 1 po qod x 5 doses LEVAQUIN 750 MG TABS 307682 LEVOFLOXACIN Inactive GLYBURIDE 5 MG TAB Take one by mouth daily GLYBURIDE 5 MG TAB 289997 GLYBURIDE Inactive PREDNISONE 5 MG TAB Take one po qod PREDNISONE 5 MG TAB 034869 PREDNISONE Inactive PREDNISONE 20 MG TAB 2 tabs daily for 5 days, then 1 daily for 5 days PREDNISONE 20 MG TAB 185864 PREDNISONE Inactive FLONASE 50 MCG/ACT SUSP 2 puffs in each nostril daily FLONASE 50 MCG/ACT SUSP FLUTICASONE PROPIONATE Inactive SYMBICORT 160-4.5 MCG/ACT AERO 2 puff BID SYMBICORT 160-4.5 MCG/ACT AERO BUDESONIDE-FORMOTEROL FUMARATE Inactive PREDNISONE 5 MG TABS 1 po qod PREDNISONE 5 MG TABS 597131 PREDNISONE Inactive PREDNISONE 20 MG TAB 1 tablet daily for airway inflammation 02/25 PREDNISONE 20 MG TAB 204413 PREDNISONE Inactive SULFASALAZINE 500 MG ORAL TBEC 2 tabs BID SULFASALAZINE 500 MG ORAL TBEC 726397 SULFASALAZINE Inactive LASIX 20 MG TAB 1 tablet by mouth daily x 2 days LASIX 20 MG TAB 934173 FUROSEMIDE Inactive CLARITIN 10 MG TAB 1 tablet by mouth daily as needed for allergies CLARITIN 10 MG TAB 838261 LORATADINE Inactive CLOTRIMAZOLE 1 % EXT CREA Apply to affected area of feet twice daily PRN Rash CLOTRIMAZOLE 1 % EXT CREA 378398 CLOTRIMAZOLE Inactive AMOXICILLIN 500 MG CAPS 2 po BID x 10 days AMOXICILLIN 500 MG CAPS 875531 AMOXICILLIN Inactive GLYBURIDE 5 MG TAB Take one by mouth daily GLYBURIDE 5 MG TAB 098862 GLYBURIDE Inactive AZITHROMYCIN 250 MG TABS 2 po qd x 1 day, then 1 po qd x 4 days AZITHROMYCIN 250 MG TABS 7052671 AZITHROMYCIN Inactive PREDNISONE 20 MG TAB 2 tabs daily for 3 days, 1 tab daily for 3 days, 1/2 tab daily for 2 days PREDNISONE 20 MG TAB 995345 PREDNISONE Inactive PREDNISONE 20 MG TAB 2 tabs daily for 5 days, then 1 daily for 5 days, then 0.5 for 4 days PREDNISONE 20 MG TAB 427726 PREDNISONE Inactive AZITHROMYCIN 250 MG TABS 2 po qd x 1 day, then 1 po qd x 4 days AZITHROMYCIN 250 MG TABS 2932927 AZITHROMYCIN Inactive PREDNISONE 20 MG TAB 2 tabs daily for 3 days, 1 tab daily for 3 days, 1/2 tab daily for 2 days PREDNISONE 20 MG TAB 752889 PREDNISONE Inactive TRIAMCINOLONE ACETONIDE 0.1 % OINT Apply to affected areas TID for up to 2 weeks TRIAMCINOLONE ACETONIDE 0.1 % OINT 3492277 TRIAMCINOLONE ACETONIDE Inactive Immunizations Vaccine Administration Date Value Standard Description pneumococcal immunization administered Pneumovax 23 [CVX33] pneumococcal polysaccharide vaccine, 23 valent Vital Signs Date Name Value Unit Range Description blood pressure, diastolic - 8462-4 75 mm[Hg] BP castillo blood pressure, systolic - 8480-6 164 mm[Hg] BP sys height E&M - 8302-2 66.5 [in_us] Bdy height pulse rate E&M - 8867-4 60 /min Heart rate temperature E&M 97.7 [degF] Body temperature weight E&M - 3141-9 212.7 [lb_av] Weight Measured blood pressure, diastolic - 8462-4 72 mm[Hg] [...] Panel - Chemistry sodium, serum 137 mmol/L 420-362 3271/06/06 carbon dioxide, venous blood 24.9 mmol/L 21.0-32.0 [...] count 210 10^3/MM^3 10*3/mm3 142-424 Lab Report: Lipid Panel, HGBA1C, Comp. Metabolic Panel - Chemistry cholesterol, serum 126 mg/dL 466-328 5143/02/07 triglyceride, serum, fasting 83 mg/dL 30-200 HDL cholesterol, serum 70 mg/dL 32-96 LDL cholesterol, serum 39 mg/dL 0-130 hemoglobin A1C, blood, as % of total hemoglobin 8.3 % 4.3-6.0 sodium, serum 141 mmol/L 634-442 6885/02/07 carbon dioxide, venous blood 26.0 mmol/L 21.0-32.0 [...] 2.6-7.2 Encounters Code Encounter Date Provider Facility CPT-01014 Level 4 Est. Patient 16:11:23 CDT Simon Castillo MD [facility] CPT-29835 Level 4 Est. Patient 09:29:28 RECREATION SUPERVISOR Simon Castillo MD [facility] CPT-75591 Level 3 Est. Patient 09:18:25 CDT Simon Castillo MD [facility] CPT-28858 Level 4 Est. Patient 11:51:23 CDT Simon Castillo MD [facility] CPT-39930 Level 4 Est. Patient 14:32:04 CDT Neto Oshea DO [facility] CPT-38820 Level 3 Est. Patient 08:41:43 CDT Giles Tatum [facility] CPT-01335 Level 3 Est. Patient 08:40:53 CDT Giles Tatum [facility] CPT-50072 Level 3 Est. Patient 08:36:52 CDT Giles Tatum [facility] CPT-37068 Level 3 Est. Patient 09:08:44 CDT Giles Tatum [facility] CPT-65087 Level 4 Est. Patient 09:17:32 RECREATION SUPERVISOR Simon Castillo MD [facility] CPT-53221 Level 3 Est. Patient 11:22:22 RECREATION SUPERVISOR Simon Castillo MD [facility] CPT-65959 Level 3 Est. Patient 09:02:14 CDT Simon Castillo MD [facility] CPT-04150 Level 4 Est. Patient 08:47:25 CDT Simon Castillo MD [facility] CPT-80182 Level 4 Est. Patient 10:17:25 CDT Simon Castillo MD [facility] CPT-94936 Level 4 Est. Patient 10:10:09 RECREATION SUPERVISOR Simon Castillo MD [facility] CPT-73499 Level 4 Est. Patient 11:48:19 CDT Simon Castillo MD [facility] CPT-39319 Level 4 Est. Patient 08:59:29 CDT Simon Castillo MD [facility] CPT-67629 Level 4 Est. Patient 10:52:51 RECREATION SUPERVISOR Simon Castillo MD [facility] CPT-71520 Level 4 Est. Patient 11:50:30 CDT Simon Castillo MD [facility] CPT-52100 Level 4 Est. Patient 09:54:46 CDT Simon Castillo MD [facility] CPT-70570 Level 3 Est. Patient 11:10:14 CDT Simon Castillo MD [facility] CPT-20474 Level 4 Est. Patient 09:44:02 CDT Simon Castillo MD [facility] CPT-34666 Level 3 Est. Patient 09:27:48 CDT Simon Castillo MD [facility] CPT-76569 Level 3 Est. Patient 09:58:06 RECREATION SUPERVISOR Simon Castillo MD [facility] CPT-28061 Level 3 Est. Patient 09:51:35 CDT Simon Castillo MD [facility] Procedures Code Procedure Name Date Entry Date Standard Description CPT-54029 Lipid - LAB USE ONLY 17:15:33 CDT CPT-79128 HGBA1C - LAB USE ONLY 17:15:33 CDT CPT-17065 CMP - LAB USE ONLY 17:15:33 CDT CPT-16007 Venipuncture Draw Fee 17:15:33 CDT CPT-COUNTS INCLUDE 234 BEDS AT THE [facility] Transitional Care Mgmt-High 11:01:28 RECREATION SUPERVISOR CPT-36766 First Vx - Ix admin for Medicare patients 17:33:39 CDT CPT-53179 Fluzone High-Dose Intramuscular Suspension 17:33:39 CDT CPT-G0438 Initial Annual Wellness Exam 08:57:30 CDT CPT-95589 Chest 2V Frontal and Lat - XRAY USE ONLY 09:00:14 CDT CPT-06346 Venipuncture Draw Fee 13:33:02 CDT CPT-45364 Bone Density 09:37:49 RECREATION SUPERVISOR CPT-17738 Fluzone High Dose 17:20:42 CDT CPT-93437 Prevnar 13 17:20:42 CDT CPT-65272 Administration 2+ single or combination vaccines inc oral 17:20:42 CDT CPT-89845 Administration single or combination vaccine inc oral 17 :20:42 CDT CPT-65546 Hand comp min 3V 09:24:38 CDT CPT-60156 Venipuncture Draw Fee 08:07:29 RECREATION SUPERVISOR CPT-74896 Venipuncture Draw Fee 09:02:51 RECREATION SUPERVISOR CPT-40077 Venipuncture Draw Fee 12:45:08 RECREATION SUPERVISOR CPT-64166 Venipuncture Draw Fee 09:25:31 CDT CPT-G0008 Administration of Influenza Virus Vaccine 14:41:29 CDT CPT-46282 Fluzone High-Dose Intramuscular Suspension 14:41:29 CDT CPT-Cryo Cryotherapy 11:48:20 CDT CPT-95405 EKG Trac and Interp 09:21:58 CDT CPT-39087 Chest 2V Frontal and Lat 09:21:58 CDT CPT-Cryo Cryotherapy 10:54:51 RECREATION SUPERVISOR CPT-75681 Administration 2+ single or combination vaccines inc oral 10:42:19 CDT CPT-54013 Administration single or combination vaccine inc oral 10 :42:19 CDT CPT-57003 Pneumovax 10:42:19 CDT CPT-05599 Influenza High Dose age 65+ 10:42:19 CDT CPT-55061 Administration single or combination vaccine inc oral 13 :18:54 CDT CPT-21953 Influenza High Dose age 65+ 13:18:54 CDT CPT-04048 Venipuncture Draw Fee 11:53:16 CDT CPT-96499 LS spine comp w obliq 11:03:13 CDT CPT-Cryo Cryotherapy 08:27:16 RECREATION SUPERVISOR CPT-49537 Administration single or combination vaccine inc oral 10 :56:34 CDT CPT-57129 Influenza High Dose age 65+ 10:56:34 CDT
--- OUTSIDE RECORDS SUMMARY | 2018-03-31 16:14 | XMS REPORT | Clinical Summary ---
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 Acute pharyngitis FH DIABETES ICD-V18.0 Inactive Simon [...] ICD-729.5 Inactive Simon Castillo MD Steroid use, shelter ICD-V58.65 Inactive Simon Castillo MD Hand pain, bilateral ICD-729.5 Inactive Simon Castillo MD Medication List Medication Instructions Start Date Stop Date Generic Name NDC Status Provider Patient Instruction CLARITIN 10 MG TAB 1 tablet by mouth daily as needed for allergies LORATADINE 45963348322 Active Jillina Deepti HEMPHILL Active PREDNISONE 20 MG TAB 1 tablet daily for airway inflammation PREDNISONE 55220047151 Active 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 BULK DRIVER Active AZITHROMYCIN 250 MG TABS 2 po qd x 1 day, then 1 po qd x 4 days AZITHROMYCIN 31763065127 No Longer Active Jillina Deepti LOYAN Active GLIMEPIRIDE 2 MG ORAL TABS 1 po q a.m. GLIMEPIRIDE 08244112664 Active Simon Castillo MD Active HYDROCODONE-ACETAMINOPHEN 5-325 MG TABS 1 tab by mouth 8 hours as needed for pain HYDROCODONE-ACETAMINOPHEN 50903828254 Active Simon Castillo MD Active TRAMADOL HCL 50 MG TABS 1 po q6hr PRN Pain TRAMADOL HCL 22493371669 No Longer Active Simno Castillo MD Active PREDNISONE 5 MG TAB 1-2 tabs daily for rheumatoid arthritis PREDNISONE 25165403850 Active Simon Castillo MD Active PREDNISONE 5 MG TABS 1 po qod PREDNISONE 04355744846 No Longer Active Simon Castillo MD Active SYMBICORT 160-4.5 MCG/ACT AERO 2 puff BID BUDESONIDE- FORMOTEROL FUMARATE 45163777544 No Longer Active Simon Castillo MD Active FLONASE 50 MCG/ACT SUSP 2 puffs in each nostril daily FLUTICASONE PROPIONATE 52044075162 No Longer Active Simon Castillo MD Active PREDNISONE 20 MG TAB 2 tabs daily for 5 days, then 1 daily for 5 days PREDNISONE 41565009340 No Longer Active Simon Castillo MD Active PREDNISONE 20 MG TAB 2 tabs daily for 5 days, then 1 daily for 5 days, then 0.5 for 4 days PREDNISONE 50963307074 No Longer Active Simon Castillo MD Active CLOTRIMAZOLE 1 % EXT CREA Apply to affected area of feet twice daily PRN Rash CLOTRIMAZOLE 54476245323 Active Simon Castillo MD Active PREDNISONE 20 MG TAB 2 tabs daily for 3 days, 1 tab daily for 3 days, 1/2 tab daily for 2 days PREDNISONE 89819928726 No Longer Active Simon Castillo MD Active AZITHROMYCIN 250 MG TABS 2 po qd x 1 day, then 1 po qd x 4 days AZITHROMYCIN 96059623185 No Longer Active Simon Castillo MD Active LISINOPRIL 10 MG TABS 1 tablet by mouth daily LISINOPRIL 44723597319 Active Simon Castillo MD Active CARVEDILOL 6.25 MG TABS 1 po BID CARVEDILOL 26360106096 Active Simon Castillo MD Active LISINOPRIL-HYDROCHLOROTHIAZIDE 20-12.5 MG TABS 1/2 tab by mouth daily LISINOPRIL-HYDROCHLOROTHIAZIDE 83110440465 No Longer Active Simon Castillo MD Active TRAMADOL HCL 50 MG TABS 1-2 tablets every 6 hours as needed for pain TRAMADOL HCL 95465099045 Active Simon Castillo MD Active PREDNISONE 5 MG TAB Take one po qod PREDNISONE 60762116376 No Longer Active Simon Castillo MD Active GLYBURIDE 5 MG TAB Take one by mouth daily GLYBURIDE 19952362295 No Longer Active Simon Castillo MD Active LEVAQUIN 750 MG TABS 1 po qod x 5 doses LEVOFLOXACIN 23991067548 No Longer Active Simon Castillo MD Active CETIRIZINE HCL 10 MG TABS 1 po qd as needed for allergies CETIRIZINE HCL 11201380554 No Longer Active Simon Castillo MD Active FISH OIL 1000 MG CPDR 1 pill by mouth twice daily for cholesterol OMEGA -3 FATTY ACIDS 37778400651 Active Simon Castillo MD Active BILBERRY CAPS 1 tab daily BILBERRY (VACCINIUM MYRTILLUS) CAPS 17161355726 Active Simon Castillo MD Active ATENOLOL 50 MG TABS Take one by mouth daily ATENOLOL 57347113215 No Longer Active Simon Castillo MD Active FLONASE 50 MCG/ACT SUSP 2 puffs in each nostril daily FLUTICASONE PROPIONATE 64687818787 No Longer Active Simon Castillo MD Active GLYBURIDE 5 MG TAB Take one by mouth daily GLYBURIDE 28193626785 No Longer Active Simon Castillo MD Active SYMBICORT 80-4.5 MCG/ACT AERO 2 puffs twice a day BUDESONIDE-FORMOTEROL FUMARATE 06498145757 No Longer Active Simon Castillo MD Active PREDNISONE 20 MG TAB 2 tabs daily for 4 days, 1 tab daily for 4 days, 1/2 tab daily for 4 days PREDNISONE 99918855116 No Longer Active Simon Castillo MD Active AMOXICILLIN 500 MG CAPS 2 po BID x 10 days AMOXICILLIN 28659414885 No Longer Active Simon Castillo MD Active METFORMIN HCL 1000 MG TABS 1 by mount twice a day METFORMIN HCL 97568030189 No Longer Active Simon Castillo MD Active LUTEIN-ZEAXANTHIN 6-1 MG TABS Take 2 by mouth daily LUTEIN-ZEAXANTHIN 16177240399 Active Simon Castillo MD Active IBUPROFEN 800 MG TABS Take 1 tab every 6 hrs prn IBUPROFEN 74229505199 No Longer Active Simon Castillo MD Active GLYBURIDE 2.5 MG TABS Take one by mouth daily GLYBURIDE 39364690141 No Longer Active Simon Castillo MD Active LANCETS MISC 2 qd LANCETS 84889330651 Active Pamela Conde Active ACACIA CONTOUR TEST STRP Use with testing twice daily GLUCOSE BLOOD 51505123575 Active Simon Castillo MD Active ACACIA ASPIRIN 325 MG TABS Take one by mouth daily ASPIRIN 37729039323 Active Pamela Conde Active GLYBURIDE 2.5 MG TABS Take one by mouth daily GLYBURIDE 2.5 MG TABS 399601 GLYBURIDE Inactive PREDNISONE 20 MG TAB 2 tabs daily for 4 days, 1 tab daily for 4 days, 1/2 tab daily for 4 days PREDNISONE 20 MG TAB 318102 PREDNISONE Inactive SYMBICORT 80-4.5 MCG/ACT AERO 2 puffs twice a day SYMBICORT 80-4.5 MCG/ACT AERO BUDESONIDE-FORMOTEROL FUMARATE Inactive FLONASE 50 MCG/ACT SUSP 2 puffs in each nostril daily FLONASE 50 MCG/ACT SUSP 363588 FLUTICASONE PROPIONATE Inactive ATENOLOL 50 MG TABS Take one by mouth daily ATENOLOL 50 MG TABS 286085 ATENOLOL Inactive CETIRIZINE HCL 10 MG TABS 1 po qd as needed for allergies CETIRIZINE HCL 10 MG TABS 7213700 CETIRIZINE HCL Inactive LEVAQUIN 750 MG TABS 1 po qod x 5 doses LEVAQUIN 750 MG TABS 729680 LEVOFLOXACIN Inactive GLYBURIDE 5 MG TAB Take one by mouth daily GLYBURIDE 5 MG TAB 803850 GLYBURIDE Inactive PREDNISONE 5 MG TAB Take one po qod PREDNISONE 5 MG TAB 582209 PREDNISONE Inactive PREDNISONE 20 MG TAB 2 tabs daily for 5 days, then 1 daily for 5 days PREDNISONE 20 MG TAB 378306 PREDNISONE Inactive FLONASE 50 MCG/ACT SUSP 2 puffs in each nostril daily FLONASE 50 MCG/ACT SUSP 772392 FLUTICASONE PROPIONATE Inactive SYMBICORT 160-4.5 MCG/ACT AERO 2 puff BID SYMBICORT 160-4.5 MCG/ACT AERO BUDESONIDE-FORMOTEROL FUMARATE Inactive PREDNISONE 5 MG TABS 1 po qod PREDNISONE 5 MG TABS 306208 PREDNISONE Inactive AMOXICILLIN 500 MG CAPS 2 po BID x 10 days AMOXICILLIN 500 MG CAPS 654563 AMOXICILLIN Inactive GLYBURIDE 5 MG TAB Take one by mouth daily GLYBURIDE 5 MG TAB 020539 GLYBURIDE Inactive AZITHROMYCIN 250 MG TABS 2 po qd x 1 day, then 1 po qd x 4 days AZITHROMYCIN 250 MG TABS 7754034 AZITHROMYCIN Inactive PREDNISONE 20 MG TAB 2 tabs daily for 3 days, 1 tab daily for 3 days, 1/2 tab daily for 2 days PREDNISONE 20 MG TAB 769921 PREDNISONE Inactive PREDNISONE 20 MG TAB 2 tabs daily for 5 days, then 1 daily for 5 days, then 0.5 for 4 days PREDNISONE 20 MG TAB 851188 PREDNISONE Inactive AZITHROMYCIN 250 MG TABS 2 po qd x 1 day, then 1 po qd x 4 days AZITHROMYCIN 250 MG TABS 7507393 AZITHROMYCIN Inactive Immunizations Vaccine Administration Date Value [...] Panel - Chemistry sodium, serum 132 mmol/L 366-074 3125/10/26 carbon dioxide, venous blood 22.8 mmol/L 21.0-32.0 [...] Panel - Chemistry sodium, serum 139 mmol/L 441-677 9742/03/17 carbon dioxide, venous blood 29.0 mmol/L 21.0-32.0 [...] Rate - Chemistry sodium, serum 136 mmol/L 632-046 7323/09/18 carbon dioxide, venous blood 24.3 mmol/L 21.0-32.0 [...] HGBA1C - Chemistry sodium, serum 139 mmol/L 116-072 2206/07/09 potassium, serum 5.4 mmol/L 3.5-5.2 chloride, serum [...] 8.5 % 4.3-6.0 sodium, serum 137 mmol/L 078-754 9604/02/12 potassium, serum 5.1 mmol/L 3.5-5.2 chloride, serum 103 mmol/L 98-107 carbon dioxide, venous blood 24.4 mmol/L 21.0-32.0 blood glucose 261 mg/dL 65-110 calcium, serum 9.0 mg/dL 8.5-10.1 urea nitrogen, blood 44 mg/dL 7-18 creatinine, serum 2.37 mg/dL 0.55-1.30 Lab Report: Lipid Panel - Chemistry cholesterol, serum 139 mg/dL 577-854 8923/09/10 triglyceride, serum, fasting 176 mg/dL 30-200 HDL cholesterol, serum 45 mg/dL 32-96 LDL cholesterol, serum 59 mg/dL 0-130 Lab Report: MICROALBUMIN - Chemistry albumin/creatinine ratio, urine 30 - 300 mg/g mg/g{creat} 0-29 Lab Report: MICROALBUMIN - Lab microalbumin, urine 30 0-19 Encounters Code Encounter Date Provider Facility CPT-03631 Level 3 Est. Patient 09:08:44 CDT Giles Tatum APRN [facility] CPT-91999 Level 4 Est. Patient 09:17:32 RISK CONTROL MANAGER Simon Castillo MD [facility] CPT-45988 Level 3 Est. Patient 11:22:22 RISK CONTROL MANAGER Simon Castillo MD [facility] CPT-00366 Level 3 Est. Patient 09:02:14 CDT Simon Castillo MD [facility] CPT-83620 Level 4 Est. Patient 08:47:25 CDT Simon Castillo MD [facility] CPT-80587 Level 4 Est. Patient 10:17:25 CDT Simon Castillo MD [facility] CPT-28051 Level 4 Est. Patient 10:10:09 RISK CONTROL MANAGER Simon Castillo MD [facility] CPT-14174 Level 4 Est. Patient 11:48:19 CDT Simon Castillo MD [facility] CPT-02585 Level 4 Est. Patient 08:59:29 CDT Simon Castillo MD [facility] CPT-39395 Level 4 Est. Patient 10:52:51 RISK CONTROL MANAGER Simon Castillo MD [facility] CPT-98944 Level 4 Est. Patient 11:50:30 CDT Simon Castillo MD [facility] CPT-81169 Level 4 Est. Patient 09:54:46 CDT Simon Castillo MD [facility] CPT-66853 Level 3 Est. Patient 11:10:14 CDT Simon Castillo MD [facility] CPT-50087 Level 4 Est. Patient 09:44:02 CDT Simon Castillo MD [facility] CPT-68273 Level 3 Est. Patient 09:27:48 CDT Simon Castillo MD [facility] CPT-76162 Level 3 Est. Patient 09:58:06 RISK CONTROL MANAGER Simon Castillo MD [facility] CPT-64898 Level 3 Est. Patient 09:51:35 CDT Simon Castillo MD [facility] Procedures Code Procedure Name Date Entry Date Standard Description CPT-96140 Venipuncture Draw Fee 13:33:02 CDT CPT-17255 Bone Density 09:37:49 RISK CONTROL MANAGER CPT-08953 Fluzone High Dose 17:20:42 CDT CPT-99280 Prevnar 13 17:20:42 CDT CPT-44605 Administration 2+ single or combination vaccines inc oral 17:20:42 CDT CPT-69698 Administration single or combination vaccine inc oral 17 :20:42 CDT CPT-74503 Hand comp min 3V 09:24:38 CDT CPT-65344 Venipuncture Draw Fee 08:07:29 RISK CONTROL MANAGER CPT-32852 Venipuncture Draw Fee 09:02:51 RISK CONTROL MANAGER CPT-49195 Venipuncture Draw Fee 12:45:08 RISK CONTROL MANAGER CPT-51663 Venipuncture Draw Fee 09:25:31 CDT CPT-G0008 Administration of Influenza Virus Vaccine 14:41:29 CDT CPT-77832 Fluzone High-Dose Intramuscular Suspension 14:41:29 CDT CPT-Cryo Cryotherapy 11:48:20 CDT CPT-80398 EKG Trac and Interp 09:21:58 CDT CPT-50632 Chest 2V Frontal and Lat 09:21:58 CDT CPT-Cryo Cryotherapy 10:54:51 RISK CONTROL MANAGER CPT-21507 Administration 2+ single or combination vaccines inc oral 10:42:19 CDT CPT-60946 Administration single or combination vaccine inc oral 10 :42:19 CDT CPT-53732 Pneumovax 10:42:19 CDT CPT-35911 Influenza High Dose age 65+ 10:42:19 CDT CPT-53284 Administration single or combination vaccine inc oral 13 :18:54 CDT CPT-84020 Influenza High Dose age 65+ 13:18:54 CDT CPT-60631 Venipuncture Draw Fee 11:53:16 CDT CPT-67710 LS spine comp w obliq 11:03:13 CDT CPT-Cryo Cryotherapy 08:27:16 RISK CONTROL MANAGER CPT-33987 Administration single or combination vaccine inc oral 10 :56:34 CDT CPT-48098 Influenza High Dose age 65+ 10:56:34 CDT
--- OUTSIDE RECORDS SUMMARY | 2018-03-31 16:15 | XMS REPORT | Clinical Summary ---
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.65 Kerry Castillo MD Hand pain, bilateral [...] MG ORAL TABS 1 po qd BUMETANIDE 28624449379 Active Simon Castillo MD Active AUGMENTIN 875-125 MG ORAL TABS 1 po BID x 10 days AMOXICILLIN-POT CLAVULANATE 24180146684 No Longer Active Simon Castillo MD Active PIOGLITAZONE HCL 30 MG ORAL TABS 1 po qd PIOGLITAZONE HCL 07887599543 Active Simon Castillo MD Active GLIMEPIRIDE 4 MG ORAL TABS 1 po BID GLIMEPIRIDE 63336735643 Active Simon Castillo MD Active ASPIRIN EC 81 MG ORAL TBEC 1 po qd ASPIRIN 13961568370 Active Simon Castillo MD Active CLOTRIMAZOLE 1 % EXT CREA Apply to affected area of feet twice daily PRN Rash CLOTRIMAZOLE 05392868493 No Longer Active Simon Castillo MD Active PREDNISONE 5 MG TAB 1 po BID PREDNISONE 82609804415 Active Simon Castillo MD Active FISH OIL 1000 MG CPDR 1 po BID OMEGA-3 FATTY ACIDS 56453239368 Active Simon Castillo MD Active LISINOPRIL 10 MG TABS 1 p qd LISINOPRIL 48565732589 Active Simon Castillo MD Active CLARITIN 10 MG TAB 1 tablet by mouth daily as needed for allergies LORATADINE 42844379428 No Longer Active Simon Castillo MD Active TRIAMCINOLONE ACETONIDE 0.1 % OINT Apply to affected areas TID for up to 2 weeks TRIAMCINOLONE ACETONIDE 48799892451 No Longer Active Simon Castillo MD Active LASIX 20 MG TAB 1 tablet by mouth daily x 2 days FUROSEMIDE 77628636070 No Longer Active Simon Castillo MD Active SULFASALAZINE 500 MG ORAL TBEC 2 tabs BID SULFASALAZINE 04603069673 No Longer Active Neto Oshea DO Active PREDNISONE 20 MG TAB 2 tabs daily for 3 days, 1 tab daily for 3 days, 1/2 tab daily for 2 days PREDNISONE 23875203498 No Longer Active 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 [employer]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 PREDNISONE 20 MG TAB 1 tablet daily for airway inflammation 02/25 PREDNISONE 09667573288 No Longer Active 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 [employer]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 AZITHROMYCIN 250 MG TABS 2 po qd x 1 day, then 1 po qd x 4 days AZITHROMYCIN 77583202637 No Longer Active 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 [employer]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 HYDROCODONE-ACETAMINOPHEN 5-325 MG TABS 1 tab by mouth 8 hours as needed for pain HYDROCODONE-ACETAMINOPHEN 13205285631 Active Simon Castillo MD Active TRAMADOL HCL 50 MG TABS 1 po q6hr PRN Pain TRAMADOL HCL 02688204103 No Longer Active Simon Castillo MD Active PREDNISONE 5 MG TABS 1 po qod PREDNISONE 72653472618 No Longer Active Simon Castillo MD Active SYMBICORT 160-4.5 MCG/ACT AERO 2 puff BID BUDESONIDE- FORMOTEROL FUMARATE 87827809610 No Longer Active Simon Castillo MD Active FLONASE 50 MCG/ACT SUSP 2 puffs in each nostril daily FLUTICASONE PROPIONATE 84395907618 No Longer Active Simon Castillo MD Active PREDNISONE 20 MG TAB 2 tabs daily for 5 days, then 1 daily for 5 days PREDNISONE 44919475566 No Longer Active Simon Castillo MD Active PREDNISONE 20 MG TAB 2 tabs daily for 5 days, then 1 daily for 5 days, then 0.5 for 4 days PREDNISONE 69236302328 No Longer Active Simon Castillo MD Active PREDNISONE 20 MG TAB 2 tabs daily for 3 days, 1 tab daily for 3 days, 1/2 tab daily for 2 days PREDNISONE 84205496644 No Longer Active Simon Castillo MD Active AZITHROMYCIN 250 MG TABS 2 po qd x 1 day, then 1 po qd x 4 days AZITHROMYCIN 28206942072 No Longer Active Simon Castillo MD Active CARVEDILOL 6.25 MG TABS 1 po BID CARVEDILOL 80177114538 Active Simon Castillo MD Active LISINOPRIL-HYDROCHLOROTHIAZIDE 20-12.5 MG TABS 1/2 tab by mouth daily LISINOPRIL-HYDROCHLOROTHIAZIDE 48104543513 No Longer Active Simon Castillo MD Active TRAMADOL HCL 50 MG TABS 1-2 tablets every 6 hours as needed for pain TRAMADOL HCL 57920857741 Active Giles Tatum APRN Active PREDNISONE 5 MG TAB Take one po qod PREDNISONE 67576356979 No Longer Active Simon Castillo MD Active GLYBURIDE 5 MG TAB Take one by mouth daily GLYBURIDE 76804109322 No Longer Active Simon Castillo MD Active LEVAQUIN 750 MG TABS 1 po qod x 5 doses LEVOFLOXACIN 91701765211 No Longer Active Simon Castillo MD Active CETIRIZINE HCL 10 MG TABS 1 po qd as needed for allergies CETIRIZINE HCL 49688666433 No Longer Active Simon Castillo MD Active BILBERRY CAPS 1 tab daily BILBERRY (VACCINIUM MYRTILLUS) CAPS 03219512836 Active Simon Castillo MD Active ATENOLOL 50 MG TABS Take one by mouth daily ATENOLOL 25231961519 No Longer Active Simon Castillo MD Active FLONASE 50 MCG/ACT SUSP 2 puffs in each nostril daily FLUTICASONE PROPIONATE 54502160495 No Longer Active Simon Castillo MD Active GLYBURIDE 5 MG TAB Take one by mouth daily GLYBURIDE 86429907770 No Longer Active Simon Castillo MD Active SYMBICORT 80-4.5 MCG/ACT AERO 2 puffs twice a day BUDESONIDE-FORMOTEROL FUMARATE 85800369034 No Longer Active Simon Castillo MD Active PREDNISONE 20 MG TAB 2 tabs daily for 4 days, 1 tab daily for 4 days, 1/2 tab daily for 4 days PREDNISONE 14891210993 No Longer Active Simon Castillo MD Active AMOXICILLIN 500 MG CAPS 2 po BID x 10 days AMOXICILLIN 26175128404 No Longer Active Simon Castillo MD Active METFORMIN HCL 1000 MG TABS 1 by mounth twice a day METFORMIN HCL 53682379160 No Longer Active Simon Castillo MD Active LUTEIN-ZEAXANTHIN 6-1 MG TABS Take 2 by mouth daily LUTEIN-ZEAXANTHIN 69472384333 Active Simon Castillo MD Active IBUPROFEN 800 MG TABS Take 1 tab every 6 hrs prn IBUPROFEN 05085382843 No Longer Active Simon Castillo MD Active GLYBURIDE 2.5 MG TABS Take one by mouth daily GLYBURIDE 93037675863 No Longer Active Simon Castillo MD Active LANCETS MISC 2 qd LANCETS 88267145547 Active Pamela Conde Active ACACIA CONTOUR TEST STRP Use with testing twice daily GLUCOSE BLOOD 76095889490 Active Simon Castillo MD Active GLYBURIDE 2.5 MG TABS Take one by mouth daily GLYBURIDE 2.5 MG TABS 870080 GLYBURIDE Inactive PREDNISONE 20 MG TAB 2 tabs daily for 4 days, 1 tab daily for 4 days, 1/2 tab daily for 4 days PREDNISONE 20 MG TAB 301386 PREDNISONE Inactive SYMBICORT 80-4.5 MCG/ACT AERO 2 puffs twice a day SYMBICORT 80-4.5 MCG/ACT AERO BUDESONIDE-FORMOTEROL FUMARATE Inactive FLONASE 50 MCG/ACT SUSP 2 puffs in each nostril daily FLONASE 50 MCG/ACT SUSP 9699425 FLUTICASONE PROPIONATE Inactive ATENOLOL 50 MG TABS Take one by mouth daily ATENOLOL 50 MG TABS 055964 ATENOLOL Inactive CETIRIZINE HCL 10 MG TABS 1 po qd as needed for allergies CETIRIZINE HCL 10 MG TABS 6767437 CETIRIZINE HCL Inactive LEVAQUIN 750 MG TABS 1 po qod x 5 doses LEVAQUIN 750 MG TABS 091209 LEVOFLOXACIN Inactive GLYBURIDE 5 MG TAB Take one by mouth daily GLYBURIDE 5 MG TAB 279734 GLYBURIDE Inactive PREDNISONE 5 MG TAB Take one po qod PREDNISONE 5 MG TAB 173330 PREDNISONE Inactive PREDNISONE 20 MG TAB 2 tabs daily for 5 days, then 1 daily for 5 days PREDNISONE 20 MG TAB 919170 PREDNISONE Inactive FLONASE 50 MCG/ACT SUSP 2 puffs in each nostril daily FLONASE 50 MCG/ACT SUSP 8305058 FLUTICASONE PROPIONATE Inactive SYMBICORT 160-4.5 MCG/ACT AERO 2 puff BID SYMBICORT 160-4.5 MCG/ACT AERO BUDESONIDE-FORMOTEROL FUMARATE Inactive PREDNISONE 5 MG TABS 1 po qod PREDNISONE 5 MG TABS 236376 PREDNISONE Inactive PREDNISONE 20 MG TAB 1 tablet daily for airway inflammation 02/25 PREDNISONE 20 MG TAB 871922 PREDNISONE Inactive SULFASALAZINE 500 MG ORAL TBEC 2 tabs BID SULFASALAZINE 500 MG ORAL [facility] 745254 SULFASALAZINE Inactive LASIX 20 MG TAB 1 tablet by mouth daily x 2 days LASIX 20 MG TAB 061591 FUROSEMIDE Inactive CLARITIN 10 MG TAB 1 tablet by mouth daily as needed for allergies CLARITIN 10 MG TAB 264489 LORATADINE Inactive CLOTRIMAZOLE 1 % EXT CREA Apply to affected area of feet twice daily PRN Rash CLOTRIMAZOLE 1 % EXT CREA 610511 CLOTRIMAZOLE Inactive AMOXICILLIN 500 MG CAPS 2 po BID x 10 days AMOXICILLIN 500 MG CAPS 263972 AMOXICILLIN Inactive GLYBURIDE 5 MG TAB Take one by mouth daily GLYBURIDE 5 MG TAB 932775 GLYBURIDE Inactive AZITHROMYCIN 250 MG TABS 2 po qd x 1 day, then 1 po qd x 4 days AZITHROMYCIN 250 MG TABS 266573 AZITHROMYCIN Inactive PREDNISONE 20 MG TAB 2 tabs daily for 3 days, 1 tab daily for 3 days, 1/2 tab daily for 2 days PREDNISONE 20 MG TAB 260553 PREDNISONE Inactive PREDNISONE 20 MG TAB 2 tabs daily for 5 days, then 1 daily for 5 days, then 0.5 for 4 days PREDNISONE 20 MG TAB 879385 PREDNISONE Inactive AZITHROMYCIN 250 MG TABS 2 po qd x 1 day, then 1 po qd x 4 days AZITHROMYCIN 250 MG TABS 257724 AZITHROMYCIN Inactive PREDNISONE 20 MG TAB 2 tabs daily for 3 days, 1 tab daily for 3 days, 1/2 tab daily for 2 days PREDNISONE 20 MG TAB 384064 PREDNISONE Inactive TRIAMCINOLONE ACETONIDE 0.1 % OINT Apply to affected areas TID for up to 2 weeks TRIAMCINOLONE ACETONIDE 0.1 % OINT 3463242 TRIAMCINOLONE ACETONIDE Inactive AUGMENTIN 875-125 MG ORAL TABS 1 po BID x 10 days AUGMENTIN 875-125 MG ORAL TABS 189781 AMOXICILLIN-POT CLAVULANATE Inactive Immunizations Vaccine Administration Date [...] Peptide - Chemistry sodium, serum 142 mmol/L 179-224 7575/07/18 potassium, serum 5.0 mmol/L 3.5-5.2 chloride, serum [...] Panel - Chemistry sodium, serum 140 mmol/L 784-750 4581/07/13 carbon dioxide, venous blood 23.7 mmol/L 21.0-32.0 [...] Panel - Chemistry cholesterol, serum 126 mg/dL 382-811 9859/02/07 triglyceride, serum, fasting 83 mg/dL 30-200 HDL cholesterol, serum 70 mg/dL 32-96 LDL cholesterol, serum 39 mg/dL 0-130 hemoglobin A1C, blood, as % of total hemoglobin 8.3 % 4.3-6.0 sodium, serum 141 mmol/L 347-657 4379/02/07 carbon dioxide, venous blood 26.0 mmol/L 21.0-32.0 [...] 0.00-1.00 Encounters Code Encounter Date Provider Facility CPT-37985 Level 4 Est. Patient 08:48:38 CDT Simon Castillo MD [facility] CPT-15767 Level 4 Est. Patient 09:54:08 CDT Simon Castillo MD [facility] CPT-91074 Level 4 Est. Patient 16:11:23 CDT Simon Castillo MD [facility] CPT-22999 Level 4 Est. Patient 09:29:28 ADMINISTRATIVE SECRETARY Simon Castillo MD [facility] CPT-33222 Level 3 Est. Patient 09:18:25 CDT Simon Castillo MD [facility] CPT-87350 Level 4 Est. Patient 11:51:23 CDT Simon Castillo MD [facility] CPT-90724 Level 4 Est. Patient 14:32:04 CDT Neto Oshea DO [facility] CPT-50481 Level 3 Est. Patient 08:41:43 CDT Jillina Nashzell [facility] CPT-99545 Level 3 Est. Patient 08:40:53 CDT 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 [facility] CPT-90528 Level 3 Est. Patient 08:36:52 CDT 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 [facility] CPT-79981 Level 3 Est. Patient 09:08:44 CDT Jillina Nashzell [facility] CPT-83203 Level 4 Est. Patient 09:17:32 ADMINISTRATIVE SECRETARY Simon Castillo MD [facility] CPT-94803 Level 3 Est. Patient 11:22:22 ADMINISTRATIVE SECRETARY Simon Castillo MD [facility] CPT-91317 Level 3 Est. Patient 09:02:14 CDT Simon Castillo MD [facility] CPT-61602 Level 4 Est. Patient 08:47:25 CDT Simon Castillo MD [facility] CPT-62070 Level 4 Est. Patient 10:17:25 CDT Simon Castillo MD [facility] CPT-21919 Level 4 Est. Patient 10:10:09 ADMINISTRATIVE SECRETARY Simon Castillo MD [facility] CPT-58800 Level 4 Est. Patient 11:48:19 CDT Simon Castillo MD [facility] CPT-62080 Level 4 Est. Patient 08:59:29 CDT Simon Castillo MD [facility] CPT-28259 Level 4 Est. Patient 10:52:51 ADMINISTRATIVE SECRETARY Simon Castillo MD [facility] CPT-80519 Level 4 Est. Patient 11:50:30 CDT Simon Castillo MD [facility] CPT-78815 Level 4 Est. Patient 09:54:46 CDT Simon Castillo MD [facility] CPT-62021 Level 3 Est. Patient 11:10:14 CDT Simon Castillo MD [facility] CPT-18918 Level 4 Est. Patient 09:44:02 CDT Simon Castillo MD [facility] CPT-48322 Level 3 Est. Patient 09:27:48 CDT Simon Castillo MD [facility] CPT-10608 Level 3 Est. Patient 09:58:06 ADMINISTRATIVE SECRETARY Simon Castillo MD [facility] CPT-75434 Level 3 Est. Patient 09:51:35 CDT Simon Castillo MD [facility] Procedures Code Procedure Name Date Entry Date Standard Description CPT-G0439 Subsequent Annual Wellness Exam 09:41:17 CDT CPT-93460 Lipid - LAB USE ONLY 17:15:33 CDT CPT-68169 HGBA1C - LAB USE ONLY 17:15:33 CDT CPT-69942 CMP - LAB USE ONLY 17:15:33 CDT CPT-97773 Venipuncture Draw Fee 17:15:33 CDT CPT-[facility] Transitional Care Mgmt-High 11:01:28 ADMINISTRATIVE SECRETARY CPT-92992 First Vx - Ix admin for Medicare patients 17:33:39 CDT CPT-92819 Fluzone High-Dose Intramuscular Suspension 17:33:39 CDT CPT-G0438 Initial Annual Wellness Exam 08:57:30 CDT CPT-45771 Chest 2V Frontal and Lat - XRAY USE ONLY 09:00:14 CDT CPT-72874 Venipuncture Draw Fee 13:33:02 CDT CPT-62665 Bone Density 09:37:49 ADMINISTRATIVE SECRETARY CPT-25916 Fluzone High Dose 17:20:42 CDT CPT-59299 Prevnar 13 17:20:42 CDT CPT-10319 Administration 2+ single or combination vaccines inc oral 17:20:42 CDT CPT-40068 Administration single or combination vaccine inc oral 17 :20:42 CDT CPT-36584 Hand comp min 3V 09:24:38 CDT CPT-42323 Venipuncture Draw Fee 08:07:29 ADMINISTRATIVE SECRETARY CPT-94843 Venipuncture Draw Fee 09:02:51 ADMINISTRATIVE SECRETARY CPT-99933 Venipuncture Draw Fee 12:45:08 ADMINISTRATIVE SECRETARY CPT-11169 Venipuncture Draw Fee 09:25:31 CDT CPT-G0008 Administration of Influenza Virus Vaccine 14:41:29 CDT CPT-80926 Fluzone High-Dose Intramuscular Suspension 14:41:29 CDT CPT-Cryo Cryotherapy 11:48:20 CDT CPT-55661 EKG Trac and Interp 09:21:58 CDT CPT-92649 Chest 2V Frontal and Lat 09:21:58 CDT CPT-Cryo Cryotherapy 10:54:51 ADMINISTRATIVE SECRETARY CPT-10000 Administration 2+ single or combination vaccines inc oral 10:42:19 CDT CPT-53919 Administration single or combination vaccine inc oral 10 :42:19 CDT CPT-84607 Pneumovax 10:42:19 CDT CPT-68641 Influenza High Dose age 65+ 10:42:19 CDT CPT-46770 Administration single or combination vaccine inc oral 13 :18:54 CDT CPT-50214 Influenza High Dose age 65+ 13:18:54 CDT CPT-93206 Venipuncture Draw Fee 11:53:16 CDT CPT-65525 LS spine comp w obliq 11:03:13 CDT CPT-Cryo Cryotherapy 08:27:16 ADMINISTRATIVE SECRETARY CPT-49556 Administration single or combination vaccine inc oral 10 :56:34 CDT CPT-34199 Influenza High Dose age 65+ 10:56:34 CDT
--- OUTSIDE RECORDS SUMMARY | 2018-03-31 16:16 | XMS REPORT | Clinical Summary ---
Author Author Admin, E Organization [employer] Address Unknown Phone Unavailable Allergies, Adverse Reactions, Alerts Allergy Name Reaction Description Start Date Severity Status Provider No Known Allergies Dollyshira CASTROLuis Conditions or Problems Problem Name Problem Code [...] Simon Castillo MD Rheumatoid arthritis Steroid use, longterm V58.65 Resolved Simon Castillo MD Long-term (current) [...] Unspecified disorder of skin and subcutaneous tissue DIABETES ICD-V18.0 Inactive Simon Castillo MD FH [...] ICD-786.50 Inactive Simon Castillo MD Cough ICD-786.2 Kerry Castillo MD Eczema ICD-692.9 Kerry Castillo MD 02/27 Bronchitis, acute ICD-466.0 Kerry Castillo MD Tinea pedis ICD-110.4 Kerry Castillo MD Hand pain, bilateral ICD-729.5 Kerry Castillo MD 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, 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 Kerry Castillo MD Hand pain, bilateral ICD-729.5 Kerry Castillo MD 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 Kerry Castillo MD Pharyngitis ICD-462 Kerry Castillo MD Dyspnea ICD-786.09 Kerry Castillo MD 2016 Peripheral edema ICD-782.3 Kerry Castillo MD Pneumonia, right lower lobe ICD-486 Kerry Castillo MD Sinusitis, acute ICD-461.9 Kerry Castillo MD Dyspnea ICD-786.09 Kerry Castillo MD 2016 Syncope and collapse ICD-780.2 Kerry Castillo MD abrasion, face, infected ICD-910.1 Kerry Castillo MD Other injury of unspecified body region, initial encounter ICD-879.8 Kerry Castillo MD Lesion of skin of face ICD-709.9 Inactive Simon Castillo MD Medication List Medication Instructions Start Date Stop Date Generic Name [facility] Status Provider Patient Instruction VIAGRA 100 MG ORAL TABLET 0.5 to 1 po qd PRN Erectile dysfunction SILDENAFIL CITRATE 51701724232 Active Simon Castillo MD Active LUTEIN-ZEAXANTHIN 6-1 MG ORAL TABLET 2 po qd LUTEIN- ZEAXANTHIN 76077686216 Active Simon Castillo MD Active BILBERRY CAPSULE 1 po qd BILBERRY (VACCINIUM MYRTILLUS) CAPS 97251071026 Active Simon Castillo MD Active TRAMADOL HCL 50 MG ORAL TABLET 1-2 tablets every 6 hours as needed for pain TRAMADOL HCL 36036495912 No Longer Active Simon Castillo MD Active HYDROCODONE-ACETAMINOPHEN 5-325 MG ORAL TABLET 1 tab by mouth 8 hours as needed for pain HYDROCODONE-ACETAMINOPHEN 21738785103 No Longer Active Simon Castillo MD Active BUMETANIDE 0.5 MG ORAL TABLET 1 po qd BUMETANIDE 09114233546 Active Simon Castillo MD Active AUGMENTIN 875-125 MG ORAL TABLET 1 po BID x 10 days AMOXICILLIN-POT CLAVULANATE 47375144695 No Longer Active Simon Castillo MD Active PIOGLITAZONE HCL 30 MG ORAL TABLET 1 po qd PIOGLITAZONE HCL 63398012795 Active Simon Castillo MD Active GLIMEPIRIDE 4 MG ORAL TABLET 1 po BID GLIMEPIRIDE 43023381363 Active Simon Castillo MD Active ASPIRIN EC 81 MG ORAL TABLET DELAYED RELEASE 1 po qd ASPIRIN 58526913947 Active Simon Castillo MD Active CLOTRIMAZOLE 1 % EXTERNAL CREAM Apply to affected area of feet twice daily PRN Rash CLOTRIMAZOLE 73865533761 No Longer Active Simon Castillo MD Active PREDNISONE 5 MG ORAL TABLET 1 po BID PREDNISONE 03431658562 Active Dolly MCDERMOTT Active FISH OIL 1000 MG ORAL CAPSULE DELAYED RELEASE 1 po BID OMEGA- 3 FATTY ACIDS 86908854074 Active Simon Castillo MD Active LISINOPRIL 10 MG ORAL TABLET 1 p qd LISINOPRIL 56800907282 Active Simon Castillo MD Active CLARITIN 10 MG ORAL TABLET 1 tablet by mouth daily as needed for allergies LORATADINE 73816393777 No Longer Active Simon Castillo MD Active TRIAMCINOLONE ACETONIDE 0.1 % EXTERNAL OINTMENT Apply to affected areas TID for up to 2 weeks TRIAMCINOLONE ACETONIDE 30615248989 No Longer Active Simon Castillo MD Active LASIX 20 MG ORAL TABLET 1 tablet by mouth daily x 2 days FUROSEMIDE 69677057544 No Longer Active Simon Castillo MD Active SULFASALAZINE 500 MG ORAL TABLET DELAYED RELEASE 2 tabs BID 02/26 SULFASALAZINE 36583095762 No Longer Active Neto Oshea DO Active PREDNISONE 20 MG ORAL TABLET 2 tabs daily for 3 days, 1 tab daily for 3 days, 1/2 tab daily for 2 days PREDNISONE 59641561870 No Longer Active Jillina Fratico HEMPHILL Active PREDNISONE 20 MG ORAL TABLET 1 tablet daily for airway inflammation PREDNISONE 89426580132 No Longer Active 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 AZITHROMYCIN 250 MG ORAL TABLET 2 po qd x 1 day, then 1 po qd x 4 days 01/28 AZITHROMYCIN 28063306434 No Longer Active 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 TRAMADOL HCL 50 MG ORAL TABLET 1 po q6hr PRN Pain TRAMADOL HCL 36835235882 No Longer Active Simon Castillo MD Active PREDNISONE 5 MG ORAL TABLET 1 po qod PREDNISONE 61541431955 No Longer Active Simon Castillo MD Active SYMBICORT 160-4.5 MCG/ACT INHALATION AEROSOL 2 puff BID BUDESONIDE-FORMOTEROL FUMARATE 26644703149 No Longer Active Simon Castillo MD Active FLONASE 50 MCG/ACT NASAL SUSPENSION 2 puffs in each nostril daily FLUTICASONE PROPIONATE 09163718264 No Longer Active Simon Castillo MD Active PREDNISONE 20 MG ORAL TABLET 2 tabs daily for 5 days, then 1 daily for 5 days PREDNISONE 87768843616 No Longer Active Simon Castillo MD Active PREDNISONE 20 MG ORAL TABLET 2 tabs daily for 5 days, then 1 daily for 5 days , then 0.5 for 4 days PREDNISONE 44305517965 No Longer Active Simon Castillo MD Active PREDNISONE 20 MG ORAL TABLET 2 tabs daily for 3 days, 1 tab daily for 3 days, 1/2 tab daily for 2 days PREDNISONE 29293039256 No Longer Active Simon Castillo MD Active AZITHROMYCIN 250 MG ORAL TABLET 2 po qd x 1 day, then 1 po qd x 4 days 03/16 AZITHROMYCIN 33018522548 No Longer Active Simon Castillo MD Active CARVEDILOL 6.25 MG ORAL TABLET 1 po BID CARVEDILOL 05652196948 Active Simon Castillo MD Active LISINOPRIL-HYDROCHLOROTHIAZIDE 20-12.5 MG ORAL TABLET 1/2 tab by mouth daily LISINOPRIL-HYDROCHLOROTHIAZIDE 59722369286 No Longer Active Simon Castillo MD Active PREDNISONE 5 MG ORAL TABLET Take one po qod PREDNISONE 92258877383 No Longer Active Simon Castillo MD Active GLYBURIDE 5 MG ORAL TABLET Take one by mouth daily GLYBURIDE 34359098810 No Longer Active Simon Castillo MD Active LEVAQUIN 750 MG ORAL TABLET 1 po qod x 5 doses LEVOFLOXACIN 82507144794 No Longer Active Simon Castillo MD Active CETIRIZINE HCL 10 MG ORAL TABLET 1 po qd as needed for allergies CETIRIZINE HCL 12364965538 No Longer Active Simon Castillo MD Active ATENOLOL 50 MG ORAL TABLET Take one by mouth daily ATENOLOL 52319818418 No Longer Active Simon Castillo MD Active FLONASE 50 MCG/ACT NASAL SUSPENSION 2 puffs in each nostril daily FLUTICASONE PROPIONATE 22006691884 No Longer Active Simon Castillo MD Active GLYBURIDE 5 MG ORAL TABLET Take one by mouth daily GLYBURIDE 80724529070 No Longer Active Simon Castillo MD Active SYMBICORT 80-4.5 MCG/ACT INHALATION AEROSOL 2 puffs twice a day BUDESONIDE-FORMOTEROL FUMARATE 28827215968 No Longer Active Simon Castillo MD Active PREDNISONE 20 MG ORAL TABLET 2 tabs daily for 4 days, 1 tab daily for 4 days, 1/2 tab daily for 4 days PREDNISONE 69885893851 No Longer Active Simon Castillo MD Active AMOXICILLIN 500 MG ORAL CAPSULE 2 po BID x 10 days AMOXICILLIN 46261966162 No Longer Active Simon Castillo MD Active METFORMIN HCL 1000 MG ORAL TABLET 1 by mounth twice a day METFORMIN HCL 95620767679 No Longer Active Simon Castillo MD Active IBUPROFEN 800 MG ORAL TABLET Take 1 tab every 6 hrs prn IBUPROFEN 98318985365 No Longer Active Simon Castillo MD Active GLYBURIDE 2.5 MG ORAL TABLET Take one by mouth daily GLYBURIDE 49612363929 No Longer Active Simon Castillo MD Active LANCETS 2 qd LANCETS 16858630827 Active Pamela Conde Active ACACIA CONTOUR TEST IN VITRO STRIP Use with testing twice daily GLUCOSE BLOOD 05636290043 Active Simon Castillo MD Active GLYBURIDE 2.5 MG ORAL TABLET Take one by mouth daily GLYBURIDE 2.5 MG ORAL TABLET 116313 GLYBURIDE Inactive PREDNISONE 20 MG ORAL TABLET 2 tabs daily for 4 days, 1 tab daily for 4 days, 1/2 tab daily for 4 days PREDNISONE 20 MG ORAL TABLET 775943 PREDNISONE Inactive SYMBICORT 80-4.5 MCG/ACT INHALATION AEROSOL 2 puffs twice a day SYMBICORT 80-4.5 MCG/ACT INHALATION AEROSOL BUDESONIDE- FORMOTEROL FUMARATE Inactive FLONASE 50 MCG/ACT NASAL SUSPENSION 2 puffs in each nostril daily FLONASE 50 MCG/ACT NASAL SUSPENSION 7495615 FLUTICASONE PROPIONATE Inactive ATENOLOL 50 MG ORAL TABLET Take one by mouth daily ATENOLOL 50 MG ORAL TABLET 951591 ATENOLOL Inactive CETIRIZINE HCL 10 MG ORAL TABLET 1 po qd as needed for allergies CETIRIZINE HCL 10 MG ORAL TABLET 7203979 CETIRIZINE HCL Inactive LEVAQUIN 750 MG ORAL TABLET 1 po qod x 5 doses LEVAQUIN 750 MG ORAL TABLET 830039 LEVOFLOXACIN Inactive GLYBURIDE 5 MG ORAL TABLET Take one by mouth daily GLYBURIDE 5 MG ORAL TABLET 790499 GLYBURIDE Inactive PREDNISONE 5 MG ORAL TABLET Take one po qod PREDNISONE 5 MG ORAL TABLET 828221 PREDNISONE Inactive PREDNISONE 20 MG ORAL TABLET 2 tabs daily for 5 days, then 1 daily for 5 days PREDNISONE 20 MG ORAL TABLET 269113 PREDNISONE Inactive FLONASE 50 MCG/ACT NASAL SUSPENSION 2 puffs in each nostril daily FLONASE 50 MCG/ACT NASAL SUSPENSION 7819641 FLUTICASONE PROPIONATE Inactive SYMBICORT 160-4.5 MCG/ACT INHALATION AEROSOL 2 puff BID SYMBICORT 160-4.5 MCG/ACT INHALATION AEROSOL BUDESONIDE-FORMOTEROL FUMARATE Inactive PREDNISONE 5 MG ORAL TABLET 1 po qod PREDNISONE 5 MG ORAL TABLET 903575 PREDNISONE Inactive PREDNISONE 20 MG ORAL TABLET 1 tablet daily for airway inflammation PREDNISONE 20 MG ORAL TABLET 264622 PREDNISONE Inactive SULFASALAZINE 500 MG ORAL TABLET DELAYED RELEASE 2 tabs BID 02/26 SULFASALAZINE 500 MG ORAL TABLET DELAYED RELEASE 076837 SULFASALAZINE Inactive LASIX 20 MG ORAL TABLET 1 tablet by mouth daily x 2 days 2016/06/ 10 LASIX 20 MG ORAL TABLET 167222 FUROSEMIDE Inactive CLARITIN 10 MG ORAL TABLET 1 tablet by mouth daily as needed for allergies CLARITIN 10 MG ORAL TABLET 222834 LORATADINE Inactive CLOTRIMAZOLE 1 % EXTERNAL CREAM Apply to affected area of feet twice daily PRN Rash CLOTRIMAZOLE 1 % EXTERNAL CREAM 879359 CLOTRIMAZOLE Inactive HYDROCODONE-ACETAMINOPHEN 5-325 MG ORAL TABLET 1 tab by mouth 8 hours as needed for pain HYDROCODONE-ACETAMINOPHEN 5-325 MG ORAL TABLET 928822 HYDROCODONE-ACETAMINOPHEN Inactive TRAMADOL HCL 50 MG ORAL TABLET 1-2 tablets every 6 hours as needed for pain TRAMADOL HCL 50 MG ORAL TABLET 892148 TRAMADOL HCL Inactive AMOXICILLIN 500 MG ORAL CAPSULE 2 po BID x 10 days AMOXICILLIN 500 MG ORAL CAPSULE 925674 AMOXICILLIN Inactive GLYBURIDE 5 MG ORAL TABLET Take one by mouth daily GLYBURIDE 5 MG ORAL TABLET 370798 GLYBURIDE Inactive AZITHROMYCIN 250 MG ORAL TABLET 2 po qd x 1 day, then 1 po qd x 4 days 03/16 AZITHROMYCIN 250 MG ORAL TABLET 774514 AZITHROMYCIN Inactive PREDNISONE 20 MG ORAL TABLET 2 tabs daily for 3 days, 1 tab daily for 3 days, 1/2 tab daily for 2 days PREDNISONE 20 MG ORAL TABLET 861532 PREDNISONE Inactive PREDNISONE 20 MG ORAL TABLET 2 tabs daily for 5 days, then 1 daily for 5 days , then 0.5 for 4 days PREDNISONE 20 MG ORAL TABLET 797118 PREDNISONE Inactive AZITHROMYCIN 250 MG ORAL TABLET 2 po qd x 1 day, then 1 po qd x 4 days 01/28 AZITHROMYCIN 250 MG ORAL TABLET 672758 AZITHROMYCIN Inactive PREDNISONE 20 MG ORAL TABLET 2 tabs daily for 3 days, 1 tab daily for 3 days, 1/2 tab daily for 2 days PREDNISONE 20 MG ORAL TABLET 845059 PREDNISONE Inactive TRIAMCINOLONE ACETONIDE 0.1 % EXTERNAL OINTMENT Apply to affected areas TID for up to 2 weeks TRIAMCINOLONE ACETONIDE 0.1 % EXTERNAL OINTMENT 4026036 TRIAMCINOLONE ACETONIDE Inactive AUGMENTIN 875-125 MG ORAL TABLET 1 po BID x 10 days AUGMENTIN 875-125 MG ORAL TABLET 590725 AMOXICILLIN-POT CLAVULANATE Inactive Immunizations Vaccine Administration Date Value Standard Description pneumococcal immunization administered Pneumovax 23 [CVX33] pneumococcal polysaccharide vaccine, 23 valent Vital Signs Date Name Value Unit Range Description blood pressure, diastolic 68 mm[Hg] BP castillo [...] temperature weight E&M 214.9 [lb_av] Weight Measured Diagnostic Results Date Name [...] Peptide - Chemistry sodium, serum 142 mmol/L 608-327 0520/07/18 potassium, serum 5.0 mmol/L 3.5-5.2 chloride, serum [...] 192 10^3/MM^3 10*3/mm3 142-424 Lab Report: CBC, HGBA1C [...] Panel - Chemistry sodium, serum 140 mmol/L 418-269 2494/07/13 carbon dioxide, venous blood 23.7 mmol/L 21.0-32.0 [...] dipstick Negative Negative sodium, serum 142 mmol/L 673-555 2772/01/08 carbon dioxide, venous blood 23.9 mmol/L 21.0-32.0 potassium, serum 5.5 mmol/L 3.5-5.2 chloride, serum 106 mmol/L 98-107 blood glucose 266 mg/dL 65-110 urea nitrogen, blood 69 mg/dL 7-18 creatinine, serum 3.11 mg/dL 0.60-1.30 alanine aminotransferase (SGPT), serum 26 U/L 12-78 [...] Negative;Positive Encounters Code Encounter Date Provider Facility CPT-37246 Level 4 Est. Patient 14:06:23 HISTOLOGY TECHNICIAN Simon Castillo MD [facility] CPT-47104 Level 3 Est. Patient 12:04:38 HISTOLOGY TECHNICIAN Giles Tatum [facility] CPT-28857 Level 3 Est. Patient 11:57:09 HISTOLOGY TECHNICIAN Giles Tatum [facility] CPT-59888 Level 3 Est. Patient 11:48:57 HISTOLOGY TECHNICIAN Giles Tatum [facility] CPT-19929 Level 4 Est. Patient 09:54:36 CDT Simon Castillo MD [facility] CPT-35298 Level 4 Est. Patient 08:48:38 CDT Simon Castillo MD [facility] CPT-96971 Level 4 Est. Patient 09:54:08 CDT Simon Castillo MD [facility] CPT-20779 Level 4 Est. Patient 16:11:23 CDT Simon Castillo MD [facility] CPT-53406 Level 4 Est. Patient 09:29:28 HISTOLOGY TECHNICIAN Simon Castillo MD [facility] CPT-85940 Level 3 Est. Patient 09:18:25 CDT Simon Castillo MD [facility] CPT-13656 Level 4 Est. Patient 11:51:23 CDT Simon Castillo MD [facility] CPT-74447 Level 4 Est. Patient 14:32:04 CDT Neto Oshea DO [facility] CPT-19218 Level 3 Est. Patient 08:41:43 CDT Giles Tatum [facility] CPT-22761 Level 3 Est. Patient 08:40:53 CDT Jonathanviratriston Salcidoalejandrina [facility] CPT-14032 Level 3 Est. Patient 08:36:52 CDT Giles Salcidol [facility] CPT-26003 Level 3 Est. Patient 09:08:44 CDT Jonathanmeli Nashtico [facility] CPT-28048 Level 4 Est. Patient 09:17:32 HISTOLOGY TECHNICIAN Simon Castillo MD [facility] CPT-10433 Level 3 Est. Patient 11:22:22 HISTOLOGY TECHNICIAN Simon Castillo MD [facility] CPT-64290 Level 3 Est. Patient 09:02:14 CDT Simon Castillo MD [facility] CPT-05110 Level 4 Est. Patient 08:47:25 CDT Simon Castillo MD [facility] CPT-71318 Level 4 Est. Patient 10:17:25 CDT Simon Castillo MD [facility] CPT-72625 Level 4 Est. Patient 10:10:09 HISTOLOGY TECHNICIAN Simon Castillo MD [facility] CPT-15595 Level 4 Est. Patient 11:48:19 CDT Simon Castillo MD [facility] CPT-13984 Level 4 Est. Patient 08:59:29 CDT Simon Castillo MD [facility] CPT-62832 Level 4 Est. Patient 10:52:51 HISTOLOGY TECHNICIAN Simon Castillo MD [facility] CPT-64861 Level 4 Est. Patient 11:50:30 CDT Simon Castillo MD [facility] CPT-95110 Level 4 Est. Patient 09:54:46 CDT Simon Castillo MD [facility] CPT-66215 Level 3 Est. Patient 11:10:14 CDT Simon Castillo MD [facility] CPT-05693 Level 4 Est. Patient 09:44:02 CDT Simon Castillo MD [facility] CPT-79785 Level 3 Est. Patient 09:27:48 CDT Simon Castillo MD [facility] CPT-27996 Level 3 Est. Patient 09:58:06 HISTOLOGY TECHNICIAN Simon Castillo MD [facility] CPT-99038 Level 3 Est. Patient 09:51:35 CDT Simon Castillo MD [facility] Procedures Code Procedure Name Date Entry Date Standard Description CPT-24692 EKG Trac and Interp - XRAY USE ONLY 12:19:18 HISTOLOGY TECHNICIAN 09/29 CPT-48500 Chest, 2 views 12:19:17 HISTOLOGY TECHNICIAN CPT-Cryo Cryotherapy 09:54:37 CDT CPT-21427 First Vx - Ix admin for Medicare patients 09:13:10 CDT CPT-45029 Fluzone High-Dose Intramuscular Suspension 09:13:10 CDT CPT-G0439 Subsequent Annual Wellness Exam 09:41:17 CDT CPT-86037 Lipid - LAB USE ONLY 17:15:33 CDT CPT-85351 HGBA1C - LAB USE ONLY 17:15:33 CDT CPT-25110 CMP - LAB USE ONLY 17:15:33 CDT CPT-10915 Venipuncture Draw Fee 17:15:33 CDT CPT-TCM Transitional Care Mgmt-High 11:01:28 HISTOLOGY TECHNICIAN CPT-08822 First Vx - Ix admin for Medicare patients 17:33:39 CDT CPT-90877 Fluzone High-Dose Intramuscular Suspension 17:33:39 CDT CPT-G0438 Initial Annual Wellness Exam 08:57:30 CDT CPT-71776 Chest 2V Frontal and Lat - XRAY USE ONLY 09:00:14 CDT CPT-87892 Venipuncture Draw Fee 13:33:02 CDT CPT-92864 Bone Density 09:37:49 HISTOLOGY TECHNICIAN CPT-67915 Fluzone High Dose 17:20:42 CDT CPT-72582 Prevnar 13 17:20:42 CDT CPT-95060 Administration 2+ single or combination vaccines inc oral 17:20:42 CDT CPT-34922 Administration single or combination vaccine inc oral 17 :20:42 CDT CPT-07475 Hand comp min 3V 09:24:38 CDT CPT-05866 Venipuncture Draw Fee 08:07:29 HISTOLOGY TECHNICIAN CPT-84390 Venipuncture Draw Fee 09:02:51 HISTOLOGY TECHNICIAN CPT-60534 Venipuncture Draw Fee 12:45:08 HISTOLOGY TECHNICIAN CPT-10868 Venipuncture Draw Fee 09:25:31 CDT CPT-G0008 Administration of Influenza Virus Vaccine 14:41:29 CDT CPT-49378 Fluzone High-Dose Intramuscular Suspension 14:41:29 CDT CPT-Cryo Cryotherapy 11:48:20 CDT CPT-86692 EKG Trac and Interp 09:21:58 CDT CPT-12621 Chest 2V Frontal and Lat 09:21:58 CDT CPT-Cryo Cryotherapy 10:54:51 HISTOLOGY TECHNICIAN CPT-32588 Administration 2+ single or combination vaccines inc oral 10:42:19 CDT CPT-21209 Administration single or combination vaccine inc oral 10 :42:19 CDT CPT-87665 Pneumovax 10:42:19 CDT CPT-05920 Influenza High Dose age 65+ 10:42:19 CDT CPT-09762 Administration single or combination vaccine inc oral 13 :18:54 CDT CPT-15901 Influenza High Dose age 65+ 13:18:54 CDT CPT-73685 Venipuncture Draw Fee 11:53:16 CDT CPT-46701 LS spine comp w obliq 11:03:13 CDT CPT-Cryo Cryotherapy 08:27:16 HISTOLOGY TECHNICIAN CPT-22331 Administration single or combination vaccine inc oral 10 :56:34 CDT CPT-39607 Influenza High Dose age 65+ 10:56:34 CDT
--- OUTSIDE RECORDS SUMMARY | 2018-03-31 16:17 | XMS REPORT | Clinical Summary ---
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 ICD-V58.65 Kerry Castillo MD Hand pain, bilateral [...] MG ORAL TABS 1 po qd BUMETANIDE 35688369326 Active Simon Castillo MD Active AUGMENTIN 875-125 MG ORAL TABS 1 po BID x 10 days AMOXICILLIN-POT CLAVULANATE 91125937988 Active Simon Castillo MD Active PIOGLITAZONE HCL 30 MG ORAL TABS 1 po qd PIOGLITAZONE HCL 14405584909 Active Simon Castillo MD Active GLIMEPIRIDE 4 MG ORAL TABS 1 po BID GLIMEPIRIDE 75377960485 Active Simon Castillo MD Active ASPIRIN EC 81 MG ORAL TBEC 1 po qd ASPIRIN 85640105218 Active Simon Castillo MD Active CLOTRIMAZOLE 1 % EXT CREA Apply to affected area of feet twice daily PRN Rash CLOTRIMAZOLE 56119044244 No Longer Active Simon Castillo MD Active PREDNISONE 5 MG TAB 1 po BID PREDNISONE 14490950384 Active Simon Castillo MD Active FISH OIL 1000 MG CPDR 1 po BID OMEGA-3 FATTY ACIDS 93199196842 Active Simon Castillo MD Active LISINOPRIL 10 MG TABS 1 p qd LISINOPRIL 60119767422 Active Simon Castillo MD Active CLARITIN 10 MG TAB 1 tablet by mouth daily as needed for allergies LORATADINE 91966545449 No Longer Active Simon Castillo MD Active TRIAMCINOLONE ACETONIDE 0.1 % OINT Apply to affected areas TID for up to 2 weeks TRIAMCINOLONE ACETONIDE 85555406746 No Longer Active Simon Castillo MD Active LASIX 20 MG TAB 1 tablet by mouth daily x 2 days FUROSEMIDE 12236741390 No Longer Active Simon Castillo MD Active SULFASALAZINE 500 MG ORAL TBEC 2 tabs BID SULFASALAZINE 90648081376 No Longer Active Neto Oshea DO Active PREDNISONE 20 MG TAB 2 tabs daily for 3 days, 1 tab daily for 3 days, 1/2 tab daily for 2 days PREDNISONE 41084931224 No Longer Active 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 DRINK BOX MECHANIC Active PREDNISONE 20 MG TAB 1 tablet daily for airway inflammation 02/25 PREDNISONE 12719611296 No Longer Active 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 DRINK BOX MECHANIC Active AZITHROMYCIN 250 MG TABS 2 po qd x 1 day, then 1 po qd x 4 days AZITHROMYCIN 50906808257 No Longer Active 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 DRINK BOX MECHANIC Active HYDROCODONE-ACETAMINOPHEN 5-325 MG TABS 1 tab by mouth 8 hours as needed for pain HYDROCODONE-ACETAMINOPHEN 04462425016 Active Simon Castillo MD Active TRAMADOL HCL 50 MG TABS 1 po q6hr PRN Pain TRAMADOL HCL 74382508839 No Longer Active Simon Castillo MD Active PREDNISONE 5 MG TABS 1 po qod PREDNISONE 45643911797 No Longer Active Simon Castillo MD Active SYMBICORT 160-4.5 MCG/ACT AERO 2 puff BID BUDESONIDE- FORMOTEROL FUMARATE 17621178064 No Longer Active Simon Castillo MD Active FLONASE 50 MCG/ACT SUSP 2 puffs in each nostril daily FLUTICASONE PROPIONATE 72621631147 No Longer Active Simon Castillo MD Active PREDNISONE 20 MG TAB 2 tabs daily for 5 days, then 1 daily for 5 days PREDNISONE 35128045551 No Longer Active Simon Castillo MD Active PREDNISONE 20 MG TAB 2 tabs daily for 5 days, then 1 daily for 5 days, then 0.5 for 4 days PREDNISONE 96040164661 No Longer Active Simon Castillo MD Active PREDNISONE 20 MG TAB 2 tabs daily for 3 days, 1 tab daily for 3 days, 1/2 tab daily for 2 days PREDNISONE 56538733956 No Longer Active Simon Castillo MD Active AZITHROMYCIN 250 MG TABS 2 po qd x 1 day, then 1 po qd x 4 days AZITHROMYCIN 56697358563 No Longer Active Simon Castillo MD Active CARVEDILOL 6.25 MG TABS 1 po BID CARVEDILOL 07307289605 Active Simon Castillo MD Active LISINOPRIL-HYDROCHLOROTHIAZIDE 20-12.5 MG TABS 1/2 tab by mouth daily LISINOPRIL-HYDROCHLOROTHIAZIDE 18945279617 No Longer Active Simon Castillo MD Active TRAMADOL HCL 50 MG TABS 1-2 tablets every 6 hours as needed for pain TRAMADOL HCL 35143733098 Active Giles Tatum APRN Active PREDNISONE 5 MG TAB Take one po qod PREDNISONE 71560923407 No Longer Active Simon Castillo MD Active GLYBURIDE 5 MG TAB Take one by mouth daily GLYBURIDE 47698301323 No Longer Active Simon Castillo MD Active LEVAQUIN 750 MG TABS 1 po qod x 5 doses LEVOFLOXACIN 28771104532 No Longer Active Simon Castillo MD Active CETIRIZINE HCL 10 MG TABS 1 po qd as needed for allergies CETIRIZINE HCL 08730147910 No Longer Active Simon Castillo MD Active BILBERRY CAPS 1 tab daily BILBERRY (VACCINIUM MYRTILLUS) CAPS 17998486034 Active Simon Castillo MD Active ATENOLOL 50 MG TABS Take one by mouth daily ATENOLOL 14674693996 No Longer Active Simon Castillo MD Active FLONASE 50 MCG/ACT SUSP 2 puffs in each nostril daily FLUTICASONE PROPIONATE 19033752011 No Longer Active Simon Castillo MD Active GLYBURIDE 5 MG TAB Take one by mouth daily GLYBURIDE 75839529487 No Longer Active Simon Castillo MD Active SYMBICORT 80-4.5 MCG/ACT AERO 2 puffs twice a day BUDESONIDE-FORMOTEROL FUMARATE 02055315261 No Longer Active Simon Castillo MD Active PREDNISONE 20 MG TAB 2 tabs daily for 4 days, 1 tab daily for 4 days, 1/2 tab daily for 4 days PREDNISONE 17456824603 No Longer Active Simon Castillo MD Active AMOXICILLIN 500 MG CAPS 2 po BID x 10 days AMOXICILLIN 37267870005 No Longer Active Simon Castillo MD Active METFORMIN HCL 1000 MG TABS 1 by mounth twice a day METFORMIN HCL 22518157949 No Longer Active Simon Castillo MD Active LUTEIN-ZEAXANTHIN 6-1 MG TABS Take 2 by mouth daily LUTEIN-ZEAXANTHIN 53202164944 Active Simon Castillo MD Active IBUPROFEN 800 MG TABS Take 1 tab every 6 hrs prn IBUPROFEN 47606007591 No Longer Active Simon Castillo MD Active GLYBURIDE 2.5 MG TABS Take one by mouth daily GLYBURIDE 36683815741 No Longer Active Simon Castillo MD Active LANCETS MISC 2 qd LANCETS 75005715048 Active Pamela Conde Active ACACIA CONTOUR TEST STRP Use with testing twice daily GLUCOSE BLOOD 78910574021 Active Simon Castillo MD Active GLYBURIDE 2.5 MG TABS Take one by mouth daily GLYBURIDE 2.5 MG TABS 619971 GLYBURIDE Inactive PREDNISONE 20 MG TAB 2 tabs daily for 4 days, 1 tab daily for 4 days, 1/2 tab daily for 4 days PREDNISONE 20 MG TAB 709542 PREDNISONE Inactive SYMBICORT 80-4.5 MCG/ACT AERO 2 puffs twice a day SYMBICORT 80-4.5 MCG/ACT AERO BUDESONIDE-FORMOTEROL FUMARATE Inactive FLONASE 50 MCG/ACT SUSP 2 puffs in each nostril daily FLONASE 50 MCG/ACT SUSP 4336911 FLUTICASONE PROPIONATE Inactive ATENOLOL 50 MG TABS Take one by mouth daily ATENOLOL 50 MG TABS 382643 ATENOLOL Inactive CETIRIZINE HCL 10 MG TABS 1 po qd as needed for allergies CETIRIZINE HCL 10 MG TABS 2588963 CETIRIZINE HCL Inactive LEVAQUIN 750 MG TABS 1 po qod x 5 doses LEVAQUIN 750 MG TABS 314384 LEVOFLOXACIN Inactive GLYBURIDE 5 MG TAB Take one by mouth daily GLYBURIDE 5 MG TAB 942624 GLYBURIDE Inactive PREDNISONE 5 MG TAB Take one po qod PREDNISONE 5 MG TAB 278775 PREDNISONE Inactive PREDNISONE 20 MG TAB 2 tabs daily for 5 days, then 1 daily for 5 days PREDNISONE 20 MG TAB 733897 PREDNISONE Inactive FLONASE 50 MCG/ACT SUSP 2 puffs in each nostril daily FLONASE 50 MCG/ACT SUSP 1958342 FLUTICASONE PROPIONATE Inactive SYMBICORT 160-4.5 MCG/ACT AERO 2 puff BID SYMBICORT 160-4.5 MCG/ACT AERO BUDESONIDE-FORMOTEROL FUMARATE Inactive PREDNISONE 5 MG TABS 1 po qod PREDNISONE 5 MG TABS 046712 PREDNISONE Inactive PREDNISONE 20 MG TAB 1 tablet daily for airway inflammation 02/25 PREDNISONE 20 MG TAB 568087 PREDNISONE Inactive SULFASALAZINE 500 MG ORAL TBEC 2 tabs BID SULFASALAZINE 500 MG ORAL [facility] 124091 SULFASALAZINE Inactive LASIX 20 MG TAB 1 tablet by mouth daily x 2 days LASIX 20 MG TAB 977114 FUROSEMIDE Inactive CLARITIN 10 MG TAB 1 tablet by mouth daily as needed for allergies CLARITIN 10 MG TAB 813444 LORATADINE Inactive CLOTRIMAZOLE 1 % EXT CREA Apply to affected area of feet twice daily PRN Rash CLOTRIMAZOLE 1 % EXT CREA 353344 CLOTRIMAZOLE Inactive AMOXICILLIN 500 MG CAPS 2 po BID x 10 days AMOXICILLIN 500 MG CAPS 877248 AMOXICILLIN Inactive GLYBURIDE 5 MG TAB Take one by mouth daily GLYBURIDE 5 MG TAB 285426 GLYBURIDE Inactive AZITHROMYCIN 250 MG TABS 2 po qd x 1 day, then 1 po qd x 4 days AZITHROMYCIN 250 MG TABS 0662605 AZITHROMYCIN Inactive PREDNISONE 20 MG TAB 2 tabs daily for 3 days, 1 tab daily for 3 days, 1/2 tab daily for 2 days PREDNISONE 20 MG TAB 141872 PREDNISONE Inactive PREDNISONE 20 MG TAB 2 tabs daily for 5 days, then 1 daily for 5 days, then 0.5 for 4 days PREDNISONE 20 MG TAB 071403 PREDNISONE Inactive AZITHROMYCIN 250 MG TABS 2 po qd x 1 day, then 1 po qd x 4 days AZITHROMYCIN 250 MG TABS 2232103 AZITHROMYCIN Inactive PREDNISONE 20 MG TAB 2 tabs daily for 3 days, 1 tab daily for 3 days, 1/2 tab daily for 2 days PREDNISONE 20 MG TAB 543149 PREDNISONE Inactive TRIAMCINOLONE ACETONIDE 0.1 % OINT Apply to affected areas TID for up to 2 weeks TRIAMCINOLONE ACETONIDE 0.1 % OINT 2404102 TRIAMCINOLONE ACETONIDE Inactive Immunizations Vaccine Administration Date Value Standard Description pneumococcal immunization administered Pneumovax 23 [CVX33] pneumococcal polysaccharide vaccine, 23 valent Vital Signs Date Name Value Unit Range Description blood pressure, diastolic - 8462-4 65 mm[Hg] BP castillo blood pressure, systolic - 8480-6 138 mm[Hg] BP sys height E&M - 8302-2 66.5 [in_us] Bdy height pulse rate E&M - 8867-4 55 /min Heart rate temperature E&M 98.3 [degF] Body temperature weight E&M - 3141-9 221.0 [lb_av] Weight Measured blood pressure, diastolic - 8462-4 74 mm[Hg] BP castillo blood pressure, systolic - 8480-6 121 mm[Hg] BP sys height E&M - 8302-2 66.5 [in_us] Bdy height pulse rate E&M - 8867-4 64 /min Heart rate temperature E&M 98.2 [degF] Body temperature weight E&M - 3141-9 212.0 [lb_av] Weight Measured blood pressure, diastolic - 8462-4 75 mm[Hg] BP castillo blood pressure, systolic - 8480-6 154 mm[Hg] BP sys height E&M - 8302-2 66.5 [in_us] Bdy height pulse rate E&M - 8867-4 55 /min Heart rate temperature E&M 97.1 [degF] Body temperature weight E&M - 3141-9 215.5 [lb_av] Weight Measured blood pressure, diastolic - 8462-4 75 mm[Hg] [...] E&M - 3141-9 219.1 [lb_av] Weight Measured Diagnostic Results Date [...] pH, urine, semiquantitative 5.5 5.0-8.5 Lab Report: CBC, HGBA1C - Chemistry hemoglobin [...] Panel - Chemistry sodium, serum 140 mmol/L 419-876 9409/07/13 carbon dioxide, venous blood 23.7 mmol/L 21.0-32.0 [...] Panel - Chemistry cholesterol, serum 126 mg/dL 168-483 8220/02/07 triglyceride, serum, fasting 83 mg/dL 30-200 HDL cholesterol, serum 70 mg/dL 32-96 LDL cholesterol, serum 39 mg/dL 0-130 hemoglobin A1C, blood, as % of total hemoglobin 8.3 % 4.3-6.0 sodium, serum 141 mmol/L 341-663 0816/02/07 carbon dioxide, venous blood 26.0 mmol/L 21.0-32.0 [...] 0.00-1.00 Encounters Code Encounter Date Provider Facility CPT-80739 Level 4 Est. Patient 08:48:38 CDT Simon Castillo MD [facility] CPT-29402 Level 4 Est. Patient 09:54:08 CDT Simon Castillo MD [facility] CPT-74305 Level 4 Est. Patient 16:11:23 CDT Simon Castillo MD [facility] CPT-49867 Level 4 Est. Patient 09:29:28 BRAIN WAVE TECHNICIAN Simon Castillo MD [facility] CPT-08150 Level 3 Est. Patient 09:18:25 CDT Simon Castillo MD [facility] CPT-35636 Level 4 Est. Patient 11:51:23 CDT Simon Castillo MD [facility] CPT-75744 Level 4 Est. Patient 14:32:04 CDT Neto Oshea DO [facility] CPT-43898 Level 3 Est. Patient 08:41:43 CDT Giles Tatum [facility] CPT-12313 Level 3 Est. Patient 08:40:53 CDT Giles Salcidol [facility] CPT-87375 Level 3 Est. Patient 08:36:52 CDT Giles Salcidol [facility] CPT-56768 Level 3 Est. Patient 09:08:44 CDT Giles Salcidol [facility] CPT-92501 Level 4 Est. Patient 09:17:32 BRAIN WAVE TECHNICIAN Simon Castillo MD [facility] CPT-87118 Level 3 Est. Patient 11:22:22 BRAIN WAVE TECHNICIAN Simon Castillo MD [facility] CPT-49185 Level 3 Est. Patient 09:02:14 CDT Simon Castillo MD [facility] CPT-23497 Level 4 Est. Patient 08:47:25 CDT Simon Castillo MD [facility] CPT-23302 Level 4 Est. Patient 10:17:25 CDT Simon Castillo MD [facility] CPT-25047 Level 4 Est. Patient 10:10:09 BRAIN WAVE TECHNICIAN Simon Castillo MD [facility] CPT-26744 Level 4 Est. Patient 11:48:19 CDT Simon Castillo MD [facility] CPT-61589 Level 4 Est. Patient 08:59:29 CDT Simon Castillo MD [facility] CPT-85585 Level 4 Est. Patient 10:52:51 BRAIN WAVE TECHNICIAN Simon Castillo MD [facility] CPT-98985 Level 4 Est. Patient 11:50:30 CDT Simon Castillo MD [facility] CPT-29769 Level 4 Est. Patient 09:54:46 CDT Simon Castillo MD [facility] CPT-40962 Level 3 Est. Patient 11:10:14 CDT Simon Castillo MD [facility] CPT-44179 Level 4 Est. Patient 09:44:02 CDT Simon Castillo MD [facility] CPT-44852 Level 3 Est. Patient 09:27:48 CDT Simon Castillo MD [facility] CPT-75710 Level 3 Est. Patient 09:58:06 BRAIN WAVE TECHNICIAN Simon Castillo MD [facility] CPT-10036 Level 3 Est. Patient 09:51:35 CDT Simon Castillo MD [facility] Procedures Code Procedure Name Date Entry Date Standard Description CPT-G0439 Subsequent Annual Wellness Exam 09:41:17 CDT CPT-36377 Lipid - LAB USE ONLY 17:15:33 CDT CPT-02704 HGBA1C - LAB USE ONLY 17:15:33 CDT CPT-51585 CMP - LAB USE ONLY 17:15:33 CDT CPT-17190 Venipuncture Draw Fee 17:15:33 CDT CPT-[facility] Transitional Care Mgmt-High 11:01:28 BRAIN WAVE TECHNICIAN CPT-34358 First Vx - Ix admin for Medicare patients 17:33:39 CDT CPT-39627 Fluzone High-Dose Intramuscular Suspension 17:33:39 CDT CPT-G0438 Initial Annual Wellness Exam 08:57:30 CDT CPT-29859 Chest 2V Frontal and Lat - XRAY USE ONLY 09:00:14 CDT CPT-39829 Venipuncture Draw Fee 13:33:02 CDT CPT-06111 Bone Density 09:37:49 BRAIN WAVE TECHNICIAN CPT-72566 Fluzone High Dose 17:20:42 CDT CPT-37342 Prevnar 13 17:20:42 CDT CPT-95943 Administration 2+ single or combination vaccines inc oral 17:20:42 CDT CPT-87469 Administration single or combination vaccine inc oral 17 :20:42 CDT CPT-92507 Hand comp min 3V 09:24:38 CDT CPT-90974 Venipuncture Draw Fee 08:07:29 BRAIN WAVE TECHNICIAN CPT-23031 Venipuncture Draw Fee 09:02:51 BRAIN WAVE TECHNICIAN CPT-08849 Venipuncture Draw Fee 12:45:08 BRAIN WAVE TECHNICIAN CPT-26606 Venipuncture Draw Fee 09:25:31 CDT CPT-G0008 Administration of Influenza Virus Vaccine 14:41:29 CDT CPT-97194 Fluzone High-Dose Intramuscular Suspension 14:41:29 CDT CPT-Cryo Cryotherapy 11:48:20 CDT CPT-03632 EKG Trac and Interp 09:21:58 CDT CPT-75779 Chest 2V Frontal and Lat 09:21:58 CDT CPT-Cryo Cryotherapy 10:54:51 BRAIN WAVE TECHNICIAN CPT-11810 Administration 2+ single or combination vaccines inc oral 10:42:19 CDT CPT-39326 Administration single or combination vaccine inc oral 10 :42:19 CDT CPT-50581 Pneumovax 10:42:19 CDT CPT-14516 Influenza High Dose age 65+ 10:42:19 CDT CPT-91044 Administration single or combination vaccine inc oral 13 :18:54 CDT CPT-39050 Influenza High Dose age 65+ 13:18:54 CDT CPT-26249 Venipuncture Draw Fee 11:53:16 CDT CPT-58454 LS spine comp w obliq 11:03:13 CDT CPT-Cryo Cryotherapy 08:27:16 BRAIN WAVE TECHNICIAN CPT-38040 Administration single or combination vaccine inc oral 10 :56:34 CDT CPT-87617 Influenza High Dose age 65+ 10:56:34 CDT
--- OUTSIDE RECORDS SUMMARY | 2018-03-31 16:18 | XMS REPORT | Clinical Summary ---
Author Author Admin, E Organization [employer] Address Unknown Phone Unavailable Allergies, Adverse Reactions, [...] Castillo MD Other dyspnea and respiratory abnormality FH DIABETES ICD-V18.0 Inactive Simon Castillo MD FH LUNG CANCER ICD-V16.1 Inactive Simon Castillo MD CHEST WALL PAIN, HX OF ICD-V15.89 Kerry Castillo MD SEBORRHEIC KERATOSIS ICD-702.19 Inactive Simon Castillo MD BRONCHITIS, ACUTE ICD-466.0 Inactive Simon Castillo MD SINUSITIS, ACUTE ICD-461.9 Inactive Simon Castillo MD ABDOMINAL PAIN RIGHT LOWER QUADRANT ICD-789.03 Inactive Simon Castillo MD SCIATICA ICD-724.3 Inactive Simon Castillo MD 2012 ABDOMINAL TENDERNESS ICD-789.60 Kerry Castillo MD Actinic keratosis ICD-702.0 Kerry Castillo MD BENIGN PROSTATIC HYPERTROPHY, MILD, HX OF ICD-V13.89 Inactive Simon Castillo MD Cough ICD-786.2 Inactive Simon Castillo MD Eczema ICD-692.9 Kerry Castillo MD 02/27 Bronchitis, acute ICD-466.0 Kerry Castillo MD Tinea pedis ICD-110.4 Kerry Castillo MD Hand pain, bilateral ICD-729.5 Kerry Castillo MD Steroid use, senior living ICD-V58.65 Kerry Castillo MD Hand pain, bilateral ICD-729.5 Kerry Castillo MD 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 Kerry Castillo MD Pharyngitis ICD-462 Inactive Simon Castillo MD Dyspnea ICD-786.09 Inactive Simon Castillo MD 2016 Peripheral edema ICD-782.3 Inactive Simon Castillo MD Chest pain ICD-786.50 Inactive Simon Castillo MD Obesity ICD-278.00 Inactive Simon Castillo MD 2013 Pneumonia, right lower lobe ICD-486 Inactive Simon Castillo MD Medication List Medication Instructions Start Date Stop Date Generic Name NDC Status Provider Patient Instruction BUMETANIDE 0.5 MG ORAL TABS 1 po qd BUMETANIDE 89796590044 Active Simon Castillo MD Active AUGMENTIN 875-125 MG ORAL TABS 1 po BID x 10 days AMOXICILLIN-POT CLAVULANATE 26256771521 Active Simon Castillo MD Active PIOGLITAZONE HCL 30 MG ORAL TABS 1 po qd PIOGLITAZONE HCL 26882302922 Active Simon Castillo MD Active GLIMEPIRIDE 4 MG ORAL TABS 1 po BID GLIMEPIRIDE 98146736303 Active Simon Castillo MD Active ASPIRIN EC 81 MG ORAL TBEC 1 po qd ASPIRIN 92115989945 Active Simon Castillo MD Active CLOTRIMAZOLE 1 % EXT CREA Apply to affected area of feet twice daily PRN Rash CLOTRIMAZOLE 55870690632 No Longer Active Simon Castillo MD Active PREDNISONE 5 MG TAB 1 po BID PREDNISONE 77796123781 Active Simon Castillo MD Active FISH OIL 1000 MG CPDR 1 po BID OMEGA-3 FATTY ACIDS 25268799107 Active Simon Castillo MD Active LISINOPRIL 10 MG TABS 1 p qd LISINOPRIL 64186412301 Active Simon Castillo MD Active CLARITIN 10 MG TAB 1 tablet by mouth daily as needed for allergies LORATADINE 67011854051 No Longer Active Simon Castillo MD Active TRIAMCINOLONE ACETONIDE 0.1 % OINT Apply to affected areas TID for up to 2 weeks TRIAMCINOLONE ACETONIDE 65205404384 No Longer Active Simon Castillo MD Active LASIX 20 MG TAB 1 tablet by mouth daily x 2 days FUROSEMIDE 15507826933 No Longer Active Simon Castillo MD Active SULFASALAZINE 500 MG ORAL TBEC 2 tabs BID SULFASALAZINE 46150387609 No Longer Active Neto Oshea DO Active PREDNISONE 20 MG TAB 2 tabs daily for 3 days, 1 tab daily for 3 days, 1/2 tab daily for 2 days PREDNISONE 07678958848 No Longer Active 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 [employer] Active PREDNISONE 20 MG TAB 1 tablet daily for airway inflammation 02/25 PREDNISONE 34819640238 No Longer Active 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 [employer]INE Active AZITHROMYCIN 250 MG TABS 2 po qd x 1 day, then 1 po qd x 4 days AZITHROMYCIN 22415436318 No Longer Active 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 [employer]ACHINE Active HYDROCODONE-ACETAMINOPHEN 5-325 MG TABS 1 tab by mouth 8 hours as needed for pain HYDROCODONE-ACETAMINOPHEN 32193697089 Active Simon Castillo MD Active TRAMADOL HCL 50 MG TABS 1 po q6hr PRN Pain TRAMADOL HCL 19091339087 No Longer Active Simon Castillo MD Active PREDNISONE 5 MG TABS 1 po qod PREDNISONE 38708403860 No Longer Active Simon Castillo MD Active SYMBICORT 160-4.5 MCG/ACT AERO 2 puff BID BUDESONIDE- FORMOTEROL FUMARATE 86891585354 No Longer Active Simon Castillo MD Active FLONASE 50 MCG/ACT SUSP 2 puffs in each nostril daily FLUTICASONE PROPIONATE 71748027672 No Longer Active Simon Castillo MD Active PREDNISONE 20 MG TAB 2 tabs daily for 5 days, then 1 daily for 5 days PREDNISONE 78519888140 No Longer Active Simon Castillo MD Active PREDNISONE 20 MG TAB 2 tabs daily for 5 days, then 1 daily for 5 days, then 0.5 for 4 days PREDNISONE 78987466410 No Longer Active Simon Castillo MD Active PREDNISONE 20 MG TAB 2 tabs daily for 3 days, 1 tab daily for 3 days, 1/2 tab daily for 2 days PREDNISONE 24534802025 No Longer Active Simon Castillo MD Active AZITHROMYCIN 250 MG TABS 2 po qd x 1 day, then 1 po qd x 4 days AZITHROMYCIN 53736420914 No Longer Active Simon Castillo MD Active CARVEDILOL 6.25 MG TABS 1 po BID CARVEDILOL 38048565818 Active Simon Castillo MD Active LISINOPRIL-HYDROCHLOROTHIAZIDE 20-12.5 MG TABS 1/2 tab by mouth daily LISINOPRIL-HYDROCHLOROTHIAZIDE 68261018278 No Longer Active Simon Castillo MD Active TRAMADOL HCL 50 MG TABS 1-2 tablets every 6 hours as needed for pain TRAMADOL HCL 75393853731 Active Giles Tatum APRN Active PREDNISONE 5 MG TAB Take one po qod PREDNISONE 72672525910 No Longer Active Simon Castillo MD Active GLYBURIDE 5 MG TAB Take one by mouth daily GLYBURIDE 60939768244 No Longer Active Simon Castillo MD Active LEVAQUIN 750 MG TABS 1 po qod x 5 doses LEVOFLOXACIN 61675174077 No Longer Active Simon Castillo MD Active CETIRIZINE HCL 10 MG TABS 1 po qd as needed for allergies CETIRIZINE HCL 96546662226 No Longer Active Simon Castillo MD Active BILBERRY CAPS 1 tab daily BILBERRY (VACCINIUM MYRTILLUS) CAPS 55949790987 Active Simon Castillo MD Active ATENOLOL 50 MG TABS Take one by mouth daily ATENOLOL 21664680586 No Longer Active Simon Castillo MD Active FLONASE 50 MCG/ACT SUSP 2 puffs in each nostril daily FLUTICASONE PROPIONATE 78739781499 No Longer Active Simon Castillo MD Active GLYBURIDE 5 MG TAB Take one by mouth daily GLYBURIDE 56421068857 No Longer Active Simon Castillo MD Active SYMBICORT 80-4.5 MCG/ACT AERO 2 puffs twice a day BUDESONIDE-FORMOTEROL FUMARATE 23328270836 No Longer Active Simon Castillo MD Active PREDNISONE 20 MG TAB 2 tabs daily for 4 days, 1 tab daily for 4 days, 1/2 tab daily for 4 days PREDNISONE 51047767855 No Longer Active Simon Castillo MD Active AMOXICILLIN 500 MG CAPS 2 po BID x 10 days AMOXICILLIN 72093844144 No Longer Active Simon Castillo MD Active METFORMIN HCL 1000 MG TABS 1 by mounth twice a day METFORMIN HCL 16704980077 No Longer Active Simon Castillo MD Active LUTEIN-ZEAXANTHIN 6-1 MG TABS Take 2 by mouth daily LUTEIN-ZEAXANTHIN 66648834975 Active Simon Castillo MD Active IBUPROFEN 800 MG TABS Take 1 tab every 6 hrs prn IBUPROFEN 32538682277 No Longer Active Simon Castillo MD Active GLYBURIDE 2.5 MG TABS Take one by mouth daily GLYBURIDE 49560026979 No Longer Active Simon Castillo MD Active LANCETS MISC 2 qd LANCETS 68803253022 Active Pamela Conde Active ACACIA CONTOUR TEST STRP Use with testing twice daily GLUCOSE BLOOD 77821308685 Active Simon Castillo MD Active GLYBURIDE 2.5 MG TABS Take one by mouth daily GLYBURIDE 2.5 MG TABS 681155 GLYBURIDE Inactive PREDNISONE 20 MG TAB 2 tabs daily for 4 days, 1 tab daily for 4 days, 1/2 tab daily for 4 days PREDNISONE 20 MG TAB 034608 PREDNISONE Inactive SYMBICORT 80-4.5 MCG/ACT AERO 2 puffs twice a day SYMBICORT 80-4.5 MCG/ACT AERO BUDESONIDE-FORMOTEROL FUMARATE Inactive FLONASE 50 MCG/ACT SUSP 2 puffs in each nostril daily FLONASE 50 MCG/ACT SUSP 8414313 FLUTICASONE PROPIONATE Inactive ATENOLOL 50 MG TABS Take one by mouth daily ATENOLOL 50 MG TABS 065168 ATENOLOL Inactive CETIRIZINE HCL 10 MG TABS 1 po qd as needed for allergies CETIRIZINE HCL 10 MG TABS 7131603 CETIRIZINE HCL Inactive LEVAQUIN 750 MG TABS 1 po qod x 5 doses LEVAQUIN 750 MG TABS 517669 LEVOFLOXACIN Inactive GLYBURIDE 5 MG TAB Take one by mouth daily GLYBURIDE 5 MG TAB 138918 GLYBURIDE Inactive PREDNISONE 5 MG TAB Take one po qod PREDNISONE 5 MG TAB 735257 PREDNISONE Inactive PREDNISONE 20 MG TAB 2 tabs daily for 5 days, then 1 daily for 5 days PREDNISONE 20 MG TAB 705278 PREDNISONE Inactive FLONASE 50 MCG/ACT SUSP 2 puffs in each nostril daily FLONASE 50 MCG/ACT SUSP 6938337 FLUTICASONE PROPIONATE Inactive SYMBICORT 160-4.5 MCG/ACT AERO 2 puff BID SYMBICORT 160-4.5 MCG/ACT AERO BUDESONIDE-FORMOTEROL FUMARATE Inactive PREDNISONE 5 MG TABS 1 po qod PREDNISONE 5 MG TABS 976638 PREDNISONE Inactive PREDNISONE 20 MG TAB 1 tablet daily for airway inflammation 02/25 PREDNISONE 20 MG TAB 312061 PREDNISONE Inactive SULFASALAZINE 500 MG ORAL TBEC 2 tabs BID SULFASALAZINE 500 MG ORAL [facility] 526180 SULFASALAZINE Inactive LASIX 20 MG TAB 1 tablet by mouth daily x 2 days LASIX 20 MG TAB 752256 FUROSEMIDE Inactive CLARITIN 10 MG TAB 1 tablet by mouth daily as needed for allergies CLARITIN 10 MG TAB 798997 LORATADINE Inactive CLOTRIMAZOLE 1 % EXT CREA Apply to affected area of feet twice daily PRN Rash CLOTRIMAZOLE 1 % EXT CREA 606546 CLOTRIMAZOLE Inactive AMOXICILLIN 500 MG CAPS 2 po BID x 10 days AMOXICILLIN 500 MG CAPS 399383 AMOXICILLIN Inactive GLYBURIDE 5 MG TAB Take one by mouth daily GLYBURIDE 5 MG TAB 353078 GLYBURIDE Inactive AZITHROMYCIN 250 MG TABS 2 po qd x 1 day, then 1 po qd x 4 days AZITHROMYCIN 250 MG TABS 6699669 AZITHROMYCIN Inactive PREDNISONE 20 MG TAB 2 tabs daily for 3 days, 1 tab daily for 3 days, 1/2 tab daily for 2 days PREDNISONE 20 MG TAB 186780 PREDNISONE Inactive PREDNISONE 20 MG TAB 2 tabs daily for 5 days, then 1 daily for 5 days, then 0.5 for 4 days PREDNISONE 20 MG TAB 391488 PREDNISONE Inactive AZITHROMYCIN 250 MG TABS 2 po qd x 1 day, then 1 po qd x 4 days AZITHROMYCIN 250 MG TABS 3168494 AZITHROMYCIN Inactive PREDNISONE 20 MG TAB 2 tabs daily for 3 days, 1 tab daily for 3 days, 1/2 tab daily for 2 days PREDNISONE 20 MG TAB 775697 PREDNISONE Inactive TRIAMCINOLONE ACETONIDE 0.1 % OINT Apply to affected areas TID for up to 2 weeks TRIAMCINOLONE ACETONIDE 0.1 % OINT 6303183 TRIAMCINOLONE ACETONIDE Inactive Immunizations Vaccine Administration Date [...] Panel - Chemistry sodium, serum 140 mmol/L 833-677 2828/07/13 carbon dioxide, venous blood 23.7 mmol/L 21.0-32.0 [...] Panel - Chemistry cholesterol, serum 126 mg/dL 365-622 4688/02/07 triglyceride, serum, fasting 83 mg/dL 30-200 HDL cholesterol, serum 70 mg/dL 32-96 LDL cholesterol, serum 39 mg/dL 0-130 hemoglobin A1C, blood, as % of total hemoglobin 8.3 % 4.3-6.0 sodium, serum 141 mmol/L 212-086 6446/02/07 carbon dioxide, venous blood 26.0 mmol/L 21.0-32.0 [...] 0.00-1.00 Encounters Code Encounter Date Provider Facility CPT-71475 Level 4 Est. Patient 08:48:38 CDT Simon Castillo MD [facility] CPT-88998 Level 4 Est. Patient 09:54:08 CDT Simon Castillo MD [facility] CPT-22245 Level 4 Est. Patient 16:11:23 CDT Simon Castillo MD [facility] CPT-29787 Level 4 Est. Patient 09:29:28 [employer] Simon Castillo MD [facility] CPT-35590 Level 3 Est. Patient 09:18:25 CDT Simon Castillo MD [facility] CPT-53871 Level 4 Est. Patient 11:51:23 CDT Simon Castillo MD [facility] CPT-19011 Level 4 Est. Patient 14:32:04 CDT Neto Oshea DO [facility] CPT-27683 Level 3 Est. Patient 08:41:43 CDT Giles Tatum [facility] CPT-69677 Level 3 Est. Patient 08:40:53 CDT Giles Salcidol [facility] CPT-71600 Level 3 Est. Patient 08:36:52 CDT Giles Salcidol [facility] CPT-97709 Level 3 Est. Patient 09:08:44 CDT Giles Salcidol [facility] CPT-33065 Level 4 Est. Patient 09:17:32 [employer] Simon Castillo MD [facility] CPT-46946 Level 3 Est. Patient 11:22:22 [employer] Simon Castillo MD [facility] CPT-44919 Level 3 Est. Patient 09:02:14 CDT Simon Castillo MD [facility] CPT-52912 Level 4 Est. Patient 08:47:25 CDT Simon Castillo MD [facility] CPT-72564 Level 4 Est. Patient 10:17:25 CDT Simon Castillo MD [facility] CPT-14844 Level 4 Est. Patient 10:10:09 [employer] Simon Castillo MD [facility] CPT-16837 Level 4 Est. Patient 11:48:19 CDT Simon Castillo MD [facility] CPT-38652 Level 4 Est. Patient 08:59:29 CDT Simon Castillo MD [facility] CPT-76604 Level 4 Est. Patient 10:52:51 [employer] Simon Castillo MD [facility] CPT-29740 Level 4 Est. Patient 11:50:30 CDT Simon Castillo MD [facility] CPT-81352 Level 4 Est. Patient 09:54:46 CDT Simon Castillo MD [facility] CPT-99600 Level 3 Est. Patient 11:10:14 CDT Simon Castillo MD [facility] CPT-31222 Level 4 Est. Patient 09:44:02 CDT Simon Castillo MD [facility] CPT-51886 Level 3 Est. Patient 09:27:48 CDT Simon Castillo MD [facility] CPT-33080 Level 3 Est. Patient 09:58:06 [employer] Simon Castillo MD [facility] CPT-31744 Level 3 Est. Patient 09:51:35 CDT Simon Castillo MD [facility] Procedures Code Procedure Name Date Entry Date Standard Description CPT-G0439 Subsequent Annual Wellness Exam 09:41:17 CDT CPT-35878 Lipid - LAB USE ONLY 17:15:33 CDT CPT-84037 HGBA1C - LAB USE ONLY 17:15:33 CDT CPT-75694 CMP - LAB USE ONLY 17:15:33 CDT CPT-22974 Venipuncture Draw Fee 17:15:33 CDT CPT-[facility] Transitional Care Mgmt-High 11:01:28 [employer] CPT-35463 First Vx - Ix admin for Medicare patients 17:33:39 CDT CPT-67316 Fluzone High-Dose Intramuscular Suspension 17:33:39 CDT CPT-G0438 Initial Annual Wellness Exam 08:57:30 CDT CPT-97613 Chest 2V Frontal and Lat - XRAY USE ONLY 09:00:14 CDT CPT-83664 Venipuncture Draw Fee 13:33:02 CDT CPT-45092 Bone Density 09:37:49 [employer] CPT-82708 Fluzone High Dose 17:20:42 CDT CPT-69884 Prevnar 13 17:20:42 CDT CPT-52532 Administration 2+ single or combination vaccines inc oral 17:20:42 CDT CPT-26522 Administration single or combination vaccine inc oral 17 :20:42 CDT CPT-40384 Hand comp min 3V 09:24:38 CDT CPT-29330 Venipuncture Draw Fee 08:07:29 [employer] CPT-44880 Venipuncture Draw Fee 09:02:51 [employer] CPT-16987 Venipuncture Draw Fee 12:45:08 [employer] CPT-49086 Venipuncture Draw Fee 09:25:31 CDT CPT-G0008 Administration of Influenza Virus Vaccine 14:41:29 CDT CPT-11893 Fluzone High-Dose Intramuscular Suspension 14:41:29 CDT CPT-[facility] Cryotherapy 11:48:20 CDT CPT-34840 EKG Trac and Interp 09:21:58 CDT CPT-30939 Chest 2V Frontal and Lat 09:21:58 CDT CPT-Cryo Cryotherapy 10:54:51 [employer] CPT-53896 Administration 2+ single or combination vaccines inc oral 10:42:19 CDT CPT-34705 Administration single or combination vaccine inc oral 10 :42:19 CDT CPT-63466 Pneumovax 10:42:19 CDT CPT-47158 Influenza High Dose age 65+ 10:42:19 CDT CPT-85017 Administration single or combination vaccine inc oral 13 :18:54 CDT CPT-62224 Influenza High Dose age 65+ 13:18:54 CDT CPT-20241 Venipuncture Draw Fee 11:53:16 CDT CPT-83821 LS spine comp w obliq 11:03:13 CDT CPT-Cryo Cryotherapy 08:27:16 [employer] CPT-51727 Administration single or combination vaccine inc oral 10 :56:34 CDT CPT-44708 Influenza High Dose age 65+ 10:56:34 CDT
--- OUTSIDE RECORDS SUMMARY | 2018-03-31 16:19 | XMS REPORT | Clinical Summary ---
Author Author Admin, E Organization [facility] Address Unknown Phone Unavailable Allergies, Adverse Reactions, Alerts Allergy Name Reaction Description Start Date Severity Status Provider No Known Allergies [facility] Conditions or Problems Problem Name Problem Code [...] Simon Castillo MD Rheumatoid arthritis Steroid use, buttermaker V58.65 Resolved Simon Castillo MD Long-term (current) [...] Rheumatoid arthritis Pharyngitis 462 Active 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 [employer]ICAL PLANNER Acute pharyngitis Dyspnea 786.09 Active 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 MEDICAL PL[employer]NER Other dyspnea and respiratory abnormality Peripheral edema 782.3 Active 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 MEDICAL PLANNER Edema FH DIABETES ICD-V18.0 Inactive Simon Castillo MD FH LUNG CANCER ICD-V16.1 Inactive Simon Castillo MD ABDOMINAL TENDERNESS ICD-789.60 Inactive Simon Castillo MD CHEST WALL PAIN, HX OF ICD-V15.89 Inactive Simon Castillo MD SEBORRHEIC KERATOSIS ICD-702.19 Inactive Simon Castillo MD BRONCHITIS, ACUTE ICD-466.0 Inactive Simon Casitllo MD SINUSITIS, ACUTE ICD-461.9 Inactive Simon Castillo [...] ICD-729.5 Inactive Simon Castillo MD Steroid use, halfway ICD-V58.65 Inactive Simon Castillo MD Hand pain, bilateral ICD-729.5 Inactive Simon Castillo MD Medication List Medication Instructions Start Date Stop Date Generic Name NDC Status Provider Patient Instruction LASIX 20 MG TAB 1 tablet by mouth daily x 2 days FUROSEMIDE 35925812364 No Longer Active Simon Castillo MD Active SULFASALAZINE 500 MG ORAL TBEC 2 tabs BID SULFASALAZINE 50864541516 No Longer Active Neto Oshea DO Active PREDNISONE 20 MG TAB 2 tabs daily for 3 days, 1 tab daily for 3 days, 1/2 tab daily for 2 days PREDNISONE 33243734674 Active 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 [employer]ICAL PLANNER Active PREDNISONE 20 MG TAB 1 tablet daily for airway inflammation 02/25 PREDNISONE 43114731451 No Longer Active 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 MEDICAL PLANNER Active CLARITIN 10 MG TAB 1 tablet by mouth daily as needed for allergies LORATADINE 68281526062 Active 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 MEDICAL PLANNER Active AZITHROMYCIN 250 MG TABS 2 po qd x 1 day, then 1 po qd x 4 days AZITHROMYCIN 90780037684 No Longer Active 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 MEDICAL PLANNER Active GLIMEPIRIDE 2 MG ORAL TABS 1 po q a.m. GLIMEPIRIDE 74870974575 Active Simon Castillo MD Active HYDROCODONE-ACETAMINOPHEN 5-325 MG TABS 1 tab by mouth 8 hours as needed for pain HYDROCODONE-ACETAMINOPHEN 90255638373 Active Simon Castillo MD Active TRAMADOL HCL 50 MG TABS 1 po q6hr PRN Pain TRAMADOL HCL 17094750563 No Longer Active Simon Castillo MD Active PREDNISONE 5 MG TAB 1-2 tabs daily for rheumatoid arthritis PREDNISONE 35304193329 Active Simon Castillo MD Active PREDNISONE 5 MG TABS 1 po qod PREDNISONE 55066305948 No Longer Active Simon Castillo MD Active SYMBICORT 160-4.5 MCG/ACT AERO 2 puff BID BUDESONIDE- FORMOTEROL FUMARATE 06791022188 No Longer Active Simon Castillo MD Active FLONASE 50 MCG/ACT SUSP 2 puffs in each nostril daily FLUTICASONE PROPIONATE 95217250741 No Longer Active Simon Castillo MD Active PREDNISONE 20 MG TAB 2 tabs daily for 5 days, then 1 daily for 5 days PREDNISONE 73877566967 No Longer Active Simon Castillo MD Active PREDNISONE 20 MG TAB 2 tabs daily for 5 days, then 1 daily for 5 days, then 0.5 for 4 days PREDNISONE 02672816112 No Longer Active Simon Castillo MD Active CLOTRIMAZOLE 1 % EXT CREA Apply to affected area of feet twice daily PRN Rash CLOTRIMAZOLE 69964101602 Active Simon Castillo MD Active PREDNISONE 20 MG TAB 2 tabs daily for 3 days, 1 tab daily for 3 days, 1/2 tab daily for 2 days PREDNISONE 21977882053 No Longer Active Simon Castillo MD Active AZITHROMYCIN 250 MG TABS 2 po qd x 1 day, then 1 po qd x 4 days AZITHROMYCIN 58410512046 No Longer Active Simon Castillo MD Active LISINOPRIL 10 MG TABS 1 tablet by mouth daily LISINOPRIL 36102667864 Active Simon Castillo MD Active CARVEDILOL 6.25 MG TABS 1 po BID CARVEDILOL 56683438739 Active Simon Castillo MD Active LISINOPRIL-HYDROCHLOROTHIAZIDE 20-12.5 MG TABS 1/2 tab by mouth daily LISINOPRIL-HYDROCHLOROTHIAZIDE 11911826652 No Longer Active Simon Castillo MD Active TRAMADOL HCL 50 MG TABS 1-2 tablets every 6 hours as needed for pain TRAMADOL HCL 45402850901 Active Giles Tatum APRN Active PREDNISONE 5 MG TAB Take one po qod PREDNISONE 28633540855 No Longer Active Simon Castillo MD Active GLYBURIDE 5 MG TAB Take one by mouth daily GLYBURIDE 81781416771 No Longer Active Simon Castillo MD Active LEVAQUIN 750 MG TABS 1 po qod x 5 doses LEVOFLOXACIN 13099228395 No Longer Active Simon Castillo MD Active CETIRIZINE HCL 10 MG TABS 1 po qd as needed for allergies CETIRIZINE HCL 37780145883 No Longer Active Simon Castillo MD Active FISH OIL 1000 MG CPDR 1 pill by mouth twice daily for cholesterol OMEGA -3 FATTY ACIDS 92842460873 Active Simon Castillo MD Active BILBERRY CAPS 1 tab daily BILBERRY (VACCINIUM MYRTILLUS) CAPS 22384943264 Active Simon Castillo MD Active ATENOLOL 50 MG TABS Take one by mouth daily ATENOLOL 92470401821 No Longer Active Simon Castillo MD Active FLONASE 50 MCG/ACT SUSP 2 puffs in each nostril daily FLUTICASONE PROPIONATE 63038051027 No Longer Active Simon Castillo MD Active GLYBURIDE 5 MG TAB Take one by mouth daily GLYBURIDE 11030002306 No Longer Active Simon Castillo MD Active SYMBICORT 80-4.5 MCG/ACT AERO 2 puffs twice a day BUDESONIDE-FORMOTEROL FUMARATE 51615579118 No Longer Active Simon Castillo MD Active PREDNISONE 20 MG TAB 2 tabs daily for 4 days, 1 tab daily for 4 days, 1/2 tab daily for 4 days PREDNISONE 43849477968 No Longer Active Simon Castillo MD Active AMOXICILLIN 500 MG CAPS 2 po BID x 10 days AMOXICILLIN 26060520805 No Longer Active Simon Castillo MD Active METFORMIN HCL 1000 MG TABS 1 by mounth twice a day METFORMIN HCL 21976530919 No Longer Active Simon Castillo MD Active LUTEIN-ZEAXANTHIN 6-1 MG TABS Take 2 by mouth daily LUTEIN-ZEAXANTHIN 83090522905 Active Simon Castillo MD Active IBUPROFEN 800 MG TABS Take 1 tab every 6 hrs prn IBUPROFEN 63607156249 No Longer Active Simon Castillo MD Active GLYBURIDE 2.5 MG TABS Take one by mouth daily GLYBURIDE 06484597787 No Longer Active Simon Castillo MD Active LANCETS MISC 2 qd LANCETS 76950048777 Active Pamela Conde Active ACACIA CONTOUR TEST STRP Use with testing twice daily GLUCOSE BLOOD 65771715761 Active Simon Castillo MD Active ACACIA ASPIRIN 325 MG TABS Take one by mouth daily ASPIRIN 70717898092 Active Pamela Conde Active GLYBURIDE 2.5 MG TABS Take one by mouth daily GLYBURIDE 2.5 MG TABS 291375 GLYBURIDE Inactive PREDNISONE 20 MG TAB 2 tabs daily for 4 days, 1 tab daily for 4 days, 1/2 tab daily for 4 days PREDNISONE 20 MG TAB 515256 PREDNISONE Inactive SYMBICORT 80-4.5 MCG/ACT AERO 2 puffs twice a day SYMBICORT 80-4.5 MCG/ACT AERO BUDESONIDE-FORMOTEROL FUMARATE Inactive FLONASE 50 MCG/ACT SUSP 2 puffs in each nostril daily FLONASE 50 MCG/ACT SUSP 108238 FLUTICASONE PROPIONATE Inactive ATENOLOL 50 MG TABS Take one by mouth daily ATENOLOL 50 MG TABS 001642 ATENOLOL Inactive CETIRIZINE HCL 10 MG TABS 1 po qd as needed for allergies CETIRIZINE HCL 10 MG TABS 0920667 CETIRIZINE HCL Inactive LEVAQUIN 750 MG TABS 1 po qod x 5 doses LEVAQUIN 750 MG TABS 468904 LEVOFLOXACIN Inactive GLYBURIDE 5 MG TAB Take one by mouth daily GLYBURIDE 5 MG TAB 040442 GLYBURIDE Inactive PREDNISONE 5 MG TAB Take one po qod PREDNISONE 5 MG TAB 940981 PREDNISONE Inactive PREDNISONE 20 MG TAB 2 tabs daily for 5 days, then 1 daily for 5 days PREDNISONE 20 MG TAB 933116 PREDNISONE Inactive FLONASE 50 MCG/ACT SUSP 2 puffs in each nostril daily FLONASE 50 MCG/ACT SUSP 205708 FLUTICASONE PROPIONATE Inactive SYMBICORT 160-4.5 MCG/ACT AERO 2 puff BID SYMBICORT 160-4.5 MCG/ACT AERO BUDESONIDE-FORMOTEROL FUMARATE Inactive PREDNISONE 5 MG TABS 1 po qod PREDNISONE 5 MG TABS 102187 PREDNISONE Inactive PREDNISONE 20 MG TAB 1 tablet daily for airway inflammation 02/25 PREDNISONE 20 MG TAB 527374 PREDNISONE Inactive SULFASALAZINE 500 MG ORAL TBEC 2 tabs BID SULFASALAZINE 500 MG ORAL TBEC 846781 SULFASALAZINE Inactive LASIX 20 MG TAB 1 tablet by mouth daily x 2 days LASIX 20 MG TAB 391564 FUROSEMIDE Inactive AMOXICILLIN 500 MG CAPS 2 po BID x 10 days AMOXICILLIN 500 MG CAPS 789798 AMOXICILLIN Inactive GLYBURIDE 5 MG TAB Take one by mouth daily GLYBURIDE 5 MG TAB 207716 GLYBURIDE Inactive AZITHROMYCIN 250 MG TABS 2 po qd x 1 day, then 1 po qd x 4 days AZITHROMYCIN 250 MG TABS 1981659 AZITHROMYCIN Inactive PREDNISONE 20 MG TAB 2 tabs daily for 3 days, 1 tab daily for 3 days, 1/2 tab daily for 2 days PREDNISONE 20 MG TAB 474923 PREDNISONE Inactive PREDNISONE 20 MG TAB 2 tabs daily for 5 days, then 1 daily for 5 days, then 0.5 for 4 days PREDNISONE 20 MG TAB 557633 PREDNISONE Inactive AZITHROMYCIN 250 MG TABS 2 po qd x 1 day, then 1 po qd x 4 days AZITHROMYCIN 250 MG TABS 1278938 AZITHROMYCIN Inactive Immunizations Vaccine Administration Date Value [...] Panel - Chemistry sodium, serum 132 mmol/L 057-437 8105/10/26 carbon dioxide, venous blood 22.8 mmol/L 21.0-32.0 potassium, serum 5.4 mmol/L 3.5-5.2 chloride, serum 98 mmol/L 98-107 blood glucose 424 mg/dL 65-110 urea nitrogen, blood 40 mg/dL 7-18 creatinine, serum 2.26 mg/dL 0.55-1.30 alanine aminotransferase (SGPT), serum 29 U/L 12-78 aspartate aminotransferase (SGOT), serum 24 U/L 15-37 calcium, serum 8.6 mg/dL 8.5-10.1 bilirubin, serum, total 0.60 mg/dL 0.00-1.00 sodium, serum 137 mmol/L 473-659 2211/06/06 carbon dioxide, venous blood 24.9 mmol/L 21.0-32.0 [...] % 11.6-14.8 platelet count 210 10^3/MM^3 10*3/mm3 179-537 1602/10/26 mean corpuscular volume, RBC 92 fL 80-97 mean corpuscular hemoglobin, RBC 30.2 pg 27.0-31.2 mean corpuscular hemoglobin concentration, RBC 33.0 G/DL % 31.8- 35.4 red blood cell distribution width 14.4 % 11.6-14.8 platelet count 274 10^3/MM^3 10*3/mm3 344-829 1483/10/26 leukocyte count, blood 10.3 10^3/MM^3 10*3/mm3 4.6-10.2 neutrophils as percent of blood leukocytes 80.0 % 42.2-75.2 monocytes as percent of blood leukocytes 5.6 % 1.7-9.3 lymphocytes as percent of blood leukocytes 11.8 % 20.5-51.1 erythrocyte (RBC) count 4.11 10^6/MM^3 10*6/mm3 4.69-6.13 hemoglobin, blood 12.4 g/dL 13.5-17.5 hematocrit, blood 37.7 % 41.0-53.0 Lab Report: CBC, Comp. Metabolic Panel - Chemistry sodium, serum 139 mmol/L 791-946 2622/03/17 carbon dioxide, venous blood 29.0 mmol/L 21.0-32.0 [...] Rate - Chemistry sodium, serum 136 mmol/L 907-572 9686/09/18 carbon dioxide, venous blood 24.3 mmol/L 21.0-32.0 potassium, serum 5.1 mmol/L 3.5-5.2 chloride, serum 104 mmol/L 98-107 blood glucose 331 mg/dL 65-110 urea nitrogen, blood 43 mg/dL 7-18 creatinine, serum 2.57 mg/dL 0.55-1.30 alanine aminotransferase (SGPT), serum 27 U/L 12-78 aspartate aminotransferase (SGOT), serum 18 U/L 15-37 calcium, serum 8.4 mg/dL 8.5-10.1 Lab Report: Comp. Metabolic Panel, HGBA1C - Chemistry carbon dioxide, venous blood 25.6 mmol/L 21.0-32.0 chloride, serum 105 mmol/L 98-107 potassium, serum 5.4 mmol/L 3.5-5.2 sodium, serum 139 mmol/L 547-707 8418/07/09 urea nitrogen, blood 47 mg/dL 7-18 creatinine, serum 2.40 mg/dL 0.60-1.30 alanine aminotransferase (SGPT), serum 22 U/L 12-78 aspartate aminotransferase (SGOT), serum 12 U/L 15-37 calcium, serum 8.2 mg/dL 8.5-10.1 bilirubin, serum, total 0.80 mg/dL 0.00-1.00 hemoglobin A1C, blood, as % of total hemoglobin 6.9 % 4.3-6.0 blood glucose 199 mg/dL 65-110 Lab Report: HGBA1C - Chemistry hemoglobin A1C, blood, as % of total hemoglobin 7.7 % 4.3-6.0 Lab Report: HGBA1C, Basic Metabolic Panel - Chemistry hemoglobin A1C, blood, as % of total hemoglobin 8.5 % 4.3-6.0 sodium, serum 137 mmol/L 688-406 3047/02/12 potassium, serum 5.1 mmol/L 3.5-5.2 chloride, serum 103 mmol/L 98-107 carbon dioxide, venous blood 24.4 mmol/L 21.0-32.0 blood glucose 261 mg/dL 65-110 calcium, serum 9.0 mg/dL 8.5-10.1 urea nitrogen, blood 44 mg/dL 7-18 creatinine, serum 2.37 mg/dL 0.55-1.30 Lab Report: Lipid Panel - Chemistry triglyceride, serum, fasting 176 mg/dL 30-200 HDL cholesterol, serum 45 mg/dL 32-96 LDL cholesterol, serum 59 mg/dL 0-130 cholesterol, serum 139 mg/dL 130-200 Lab Report: MICROALBUMIN - Chemistry albumin/creatinine ratio, urine 30 - 300 mg/g mg/g{creat} 0-29 Lab Report: MICROALBUMIN - Lab microalbumin, urine 30 0-19 Lab Report: Uric Acid - Chemistry uric acid, serum 6.3 mg/dL 2.6-7.2 Encounters Code Encounter Date Provider Facility CPT-95169 Level 4 Est. Patient 11:51:23 CDT Simon Castilol MD [facility] CPT-35269 Level 4 Est. Patient 14:32:04 CDT Neto Oshea DO [facility] CPT-51170 Level 3 Est. Patient 08:41:43 CDT Giles Tatum [facility] CPT-37960 Level 3 Est. Patient 08:40:53 CDT Giles Salcidol [facility] CPT-50761 Level 3 Est. Patient 08:36:52 CDT Giles Tatum [facility] CPT-50552 Level 3 Est. Patient 09:08:44 CDT Giles Salcidol [facility] CPT-81592 Level 4 Est. Patient 09:17:32 SMT MACHINE OPERATOR Simon Castillo MD [facility] CPT-95699 Level 3 Est. Patient 11:22:22 SMT MACHINE OPERATOR Simon Castillo MD [facility] CPT-02424 Level 3 Est. Patient 09:02:14 CDT [facility] CPT-69829 Level 4 Est. Patient 08:47:25 CDT Simon Castillo MD [facility] CPT-55011 Level 4 Est. Patient 10:17:25 CDT Simon Castillo [facility] CPT-20936 Level 4 Est. Patient 10:10:09 SMT MACHINE OPERATOR Simon Castillo [facility] CPT-39958 Level 4 Est. Patient 11:48:19 CDT Simon Castillo [facility] CPT-35775 Level 4 Est. Patient 08:59:29 CDT Simon Castillo MD [facility] CPT-42023 Level 4 Est. Patient 10:52:51 SMT MACHINE OPERATOR Simon Castillo [facility] CPT-31280 Level 4 Est. Patient 11:50:30 CDT Simon Castillo [facility] CPT-06165 Level 4 Est. Patient 09:54:46 CDT Simon Castillo [facility] CPT-09707 Level 3 Est. Patient 11:10:14 CDT Simon Castillo [facility] CPT-17084 Level 4 Est. Patient 09:44:02 CDT Simon Castillo [facility] CPT-47679 Level 3 Est. Patient 09:27:48 CDT Simon Castillo [facility] CPT-62079 Level 3 Est. Patient 09:58:06 SMT MACHINE OPERATOR Simon Castillo MD [facility] CPT-01464 Level 3 Est. Patient 09:51:35 CDT Simon Castillo [facility] Procedures Code Procedure Name Date Entry Date Standard Description CPT-40569 Chest 2V Frontal and Lat - XRAY USE ONLY 09:00:14 CDT CPT-82670 Venipuncture Draw Fee 13:33:02 CDT CPT-39320 Bone Density 09:37:49 SMT MACHINE OPERATOR CPT-00446 Fluzone High Dose 17:20:42 CDT CPT-46670 Prevnar 13 17:20:42 CDT CPT-75396 Administration 2+ single or combination vaccines inc oral 17:20:42 CDT CPT-46822 Administration single or combination vaccine inc oral 17 :20:42 CDT CPT-09201 Hand comp min 3V 09:24:38 CDT CPT-83275 Venipuncture Draw Fee 08:07:29 SMT MACHINE OPERATOR CPT-65766 Venipuncture Draw Fee 09:02:51 SMT MACHINE OPERATOR CPT-96370 Venipuncture Draw Fee 12:45:08 SMT MACHINE OPERATOR CPT-63670 Venipuncture Draw Fee 09:25:31 CDT CPT-G0008 Administration of Influenza Virus Vaccine 14:41:29 CDT CPT-53727 Fluzone High-Dose Intramuscular Suspension 14:41:29 CDT CPT-Cryo Cryotherapy 11:48:20 CDT CPT-80326 EKG Trac and Interp 09:21:58 CDT CPT-87179 Chest 2V Frontal and Lat 09:21:58 CDT CPT-Cryo Cryotherapy 10:54:51 SMT MACHINE OPERATOR CPT-57692 Administration 2+ single or combination vaccines inc oral 10:42:19 CDT CPT-07555 Administration single or combination vaccine inc oral 10 :42:19 CDT CPT-20362 Pneumovax 10:42:19 CDT CPT-56123 Influenza High Dose age 65+ 10:42:19 CDT CPT-17691 Administration single or combination vaccine inc oral 13 :18:54 CDT CPT-08024 Influenza High Dose age 65+ 13:18:54 CDT CPT-12721 Venipuncture Draw Fee 11:53:16 CDT CPT-88028 LS spine comp w obliq 11:03:13 CDT CPT-Cryo Cryotherapy 08:27:16 SMT MACHINE OPERATOR CPT-26061 Administration single or combination vaccine inc oral 10 :56:34 CDT CPT-18406 Influenza High Dose age 65+ 10:56:34 CDT
--- OUTSIDE RECORDS SUMMARY | 2018-03-31 16:20 | XMS REPORT | Clinical Summary ---
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 V58.65 Resolved Simon Castillo MD Long-term (current) [...] LUNG CANCER ICD-V16.1 Inactive Simon Castillo MD SEBORRHEIC KERATOSIS ICD-702.19 Inactive Simon Castillo MD BRONCHITIS, ACUTE ICD-466.0 Inactive Simon Castillo MD ABDOMINAL TENDERNESS ICD-789.60 Inactive Simon Castillo MD ABDOMINAL PAIN RIGHT LOWER QUADRANT ICD-789.03 Inactive Simon Castillo MD CHEST WALL PAIN, HX OF ICD-V15.89 Inactive Simon Castillo MD SINUSITIS, ACUTE ICD-461.9 Inactive Simon Castillo MD SCIATICA ICD-724.3 Inactive Simon Castillo MD 2012 Chest pain ICD-786.50 Inactive Simon Castillo MD Cough ICD-786.2 Inactive Simon Castillo MD Bronchitis, acute ICD-466.0 Inactive Simon Castillo MD BENIGN PROSTATIC HYPERTROPHY, [...] 2016 Peripheral edema ICD-782.3 Kerry Castillo MD Steroid use, terminal block assembler ICD-V58.65 Kerry Castillo MD Hand pain, bilateral ICD-729.5 Kerry Castillo MD Medication List Medication Instructions Start Date Stop Date Generic Name NDC Status Provider Patient Instruction ASPIRIN EC 81 MG ORAL TBEC 1 po qd ASPIRIN 62037412007 Active Simon Castillo MD Active CLOTRIMAZOLE 1 % EXT CREA Apply to affected area of feet twice daily PRN Rash CLOTRIMAZOLE 48275790464 No Longer Active Simon Castillo MD Active PREDNISONE 5 MG TAB 1 po BID PREDNISONE 90039980997 Active Simon Castillo MD Active GLIMEPIRIDE 2 MG ORAL TABS 1 po BID GLIMEPIRIDE 73427231411 Active Simon Castillo MD Active FISH OIL 1000 MG CPDR 1 po BID OMEGA-3 FATTY ACIDS 69091243016 Active Simon Castillo MD Active LISINOPRIL 10 MG TABS 1 p qd LISINOPRIL 28240575154 Active Simon Castillo MD Active CLARITIN 10 MG TAB 1 tablet by mouth daily as needed for allergies LORATADINE 83494715554 No Longer Active Simon Castillo MD Active TRIAMCINOLONE ACETONIDE 0.1 % OINT Apply to affected areas TID for up to 2 weeks TRIAMCINOLONE ACETONIDE 79764504970 No Longer Active Simon Castillo MD Active LASIX 20 MG TAB 1 tablet by mouth daily x 2 days FUROSEMIDE 54071872463 No Longer Active Simon Castillo MD Active SULFASALAZINE 500 MG ORAL TBEC 2 tabs BID SULFASALAZINE 85087627064 No Longer Active Neto Oshea DO Active PREDNISONE 20 MG TAB 2 tabs daily for 3 days, 1 tab daily for 3 days, 1/2 tab daily for 2 days PREDNISONE 74052865658 No Longer Active 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 [employer] PROGRAM MANAGER 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 PREDNISONE 20 MG TAB 1 tablet daily for airway inflammation 02/25 PREDNISONE 10364502144 No Longer Active 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 GROUP PROGRAM MANAGER Active AZITHROMYCIN 250 MG TABS 2 po qd x 1 day, then 1 po qd x 4 days AZITHROMYCIN 71790252005 No Longer Active 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 GROUP PROGRAM MANAGER Active HYDROCODONE-ACETAMINOPHEN 5-325 MG TABS 1 tab by mouth 8 hours as needed for pain HYDROCODONE-ACETAMINOPHEN 19887808625 Active Simon Castillo MD Active TRAMADOL HCL 50 MG TABS 1 po q6hr PRN Pain TRAMADOL HCL 76143014333 No Longer Active Simon Castillo MD Active PREDNISONE 5 MG TABS 1 po qod PREDNISONE 32895956606 No Longer Active Simon Castillo MD Active SYMBICORT 160-4.5 MCG/ACT AERO 2 puff BID BUDESONIDE- FORMOTEROL FUMARATE 44369060537 No Longer Active Simon Castillo MD Active FLONASE 50 MCG/ACT SUSP 2 puffs in each nostril daily FLUTICASONE PROPIONATE 88121338545 No Longer Active Simon Castillo MD Active PREDNISONE 20 MG TAB 2 tabs daily for 5 days, then 1 daily for 5 days PREDNISONE 80024001624 No Longer Active Simon Castillo MD Active PREDNISONE 20 MG TAB 2 tabs daily for 5 days, then 1 daily for 5 days, then 0.5 for 4 days PREDNISONE 86886628982 No Longer Active Simon Castillo MD Active PREDNISONE 20 MG TAB 2 tabs daily for 3 days, 1 tab daily for 3 days, 1/2 tab daily for 2 days PREDNISONE 01278376773 No Longer Active Simon Castillo MD Active AZITHROMYCIN 250 MG TABS 2 po qd x 1 day, then 1 po qd x 4 days AZITHROMYCIN 05669206920 No Longer Active Simon Castillo MD Active CARVEDILOL 6.25 MG TABS 1 po BID CARVEDILOL 42109083141 Active Simon Castillo MD Active LISINOPRIL-HYDROCHLOROTHIAZIDE 20-12.5 MG TABS 1/2 tab by mouth daily LISINOPRIL-HYDROCHLOROTHIAZIDE 31796981816 No Longer Active Simon Castillo MD Active TRAMADOL HCL 50 MG TABS 1-2 tablets every 6 hours as needed for pain TRAMADOL HCL 53227566934 Active Giles Tatum APRN Active PREDNISONE 5 MG TAB Take one po qod PREDNISONE 59137228755 No Longer Active Simon Castillo MD Active GLYBURIDE 5 MG TAB Take one by mouth daily GLYBURIDE 87706553058 No Longer Active Simon Castillo MD Active LEVAQUIN 750 MG TABS 1 po qod x 5 doses LEVOFLOXACIN 64162122362 No Longer Active Simon Castillo MD Active CETIRIZINE HCL 10 MG TABS 1 po qd as needed for allergies CETIRIZINE HCL 50338649570 No Longer Active Simon Castillo MD Active BILBERRY CAPS 1 tab daily BILBERRY (VACCINIUM MYRTILLUS) CAPS 72510743554 Active Simon Castillo MD Active ATENOLOL 50 MG TABS Take one by mouth daily ATENOLOL 53265339795 No Longer Active Simon Castillo MD Active FLONASE 50 MCG/ACT SUSP 2 puffs in each nostril daily FLUTICASONE PROPIONATE 24426702085 No Longer Active Simon Castillo MD Active GLYBURIDE 5 MG TAB Take one by mouth daily GLYBURIDE 68444010971 No Longer Active Simon Castillo MD Active SYMBICORT 80-4.5 MCG/ACT AERO 2 puffs twice a day BUDESONIDE-FORMOTEROL FUMARATE 67447033787 No Longer Active Simon Castilol MD Active PREDNISONE 20 MG TAB 2 tabs daily for 4 days, 1 tab daily for 4 days, 1/2 tab daily for 4 days PREDNISONE 08060679405 No Longer Active Simon Castillo MD Active AMOXICILLIN 500 MG CAPS 2 po BID x 10 days AMOXICILLIN 67010613450 No Longer Active Simon Castillo MD Active METFORMIN HCL 1000 MG TABS 1 by mounth twice a day METFORMIN HCL 05418923824 No Longer Active Simon Castillo MD Active LUTEIN-ZEAXANTHIN 6-1 MG TABS Take 2 by mouth daily LUTEIN-ZEAXANTHIN 03139658122 Active Simon Castillo MD Active IBUPROFEN 800 MG TABS Take 1 tab every 6 hrs prn IBUPROFEN 59001600228 No Longer Active Simon Castillo MD Active GLYBURIDE 2.5 MG TABS Take one by mouth daily GLYBURIDE 68811818441 No Longer Active Simon Castillo MD Active LANCETS MISC 2 qd LANCETS 88304850129 Active Pamela Conde Active ACACIA CONTOUR TEST STRP Use with testing twice daily GLUCOSE BLOOD 03122160217 Active Simon Castillo MD Active GLYBURIDE 2.5 MG TABS Take one by mouth daily GLYBURIDE 2.5 MG TABS 500126 GLYBURIDE Inactive PREDNISONE 20 MG TAB 2 tabs daily for 4 days, 1 tab daily for 4 days, 1/2 tab daily for 4 days PREDNISONE 20 MG TAB 543771 PREDNISONE Inactive SYMBICORT 80-4.5 MCG/ACT AERO 2 puffs twice a day SYMBICORT 80-4.5 MCG/ACT AERO BUDESONIDE-FORMOTEROL FUMARATE Inactive FLONASE 50 MCG/ACT SUSP 2 puffs in each nostril daily FLONASE 50 MCG/ACT SUSP FLUTICASONE PROPIONATE Inactive ATENOLOL 50 MG TABS Take one by mouth daily ATENOLOL 50 MG TABS 499607 ATENOLOL Inactive CETIRIZINE HCL 10 MG TABS 1 po qd as needed for allergies CETIRIZINE HCL 10 MG TABS 4204412 CETIRIZINE HCL Inactive LEVAQUIN 750 MG TABS 1 po qod x 5 doses LEVAQUIN 750 MG TABS 406443 LEVOFLOXACIN Inactive GLYBURIDE 5 MG TAB Take one by mouth daily GLYBURIDE 5 MG TAB 977862 GLYBURIDE Inactive PREDNISONE 5 MG TAB Take one po qod PREDNISONE 5 MG TAB 595036 PREDNISONE Inactive PREDNISONE 20 MG TAB 2 tabs daily for 5 days, then 1 daily for 5 days PREDNISONE 20 MG TAB 705112 PREDNISONE Inactive FLONASE 50 MCG/ACT SUSP 2 puffs in each nostril daily FLONASE 50 MCG/ACT SUSP FLUTICASONE PROPIONATE Inactive SYMBICORT 160-4.5 MCG/ACT AERO 2 puff BID SYMBICORT 160-4.5 MCG/ACT AERO BUDESONIDE-FORMOTEROL FUMARATE Inactive PREDNISONE 5 MG TABS 1 po qod PREDNISONE 5 MG TABS 423713 PREDNISONE Inactive PREDNISONE 20 MG TAB 1 tablet daily for airway inflammation 02/25 PREDNISONE 20 MG TAB 195136 PREDNISONE Inactive SULFASALAZINE 500 MG ORAL TBEC 2 tabs BID SULFASALAZINE 500 MG ORAL TBEC 458131 SULFASALAZINE Inactive LASIX 20 MG TAB 1 tablet by mouth daily x 2 days LASIX 20 MG TAB 905049 FUROSEMIDE Inactive CLARITIN 10 MG TAB 1 tablet by mouth daily as needed for allergies CLARITIN 10 MG TAB 851782 LORATADINE Inactive CLOTRIMAZOLE 1 % EXT CREA Apply to affected area of feet twice daily PRN Rash CLOTRIMAZOLE 1 % EXT CREA 652546 CLOTRIMAZOLE Inactive AMOXICILLIN 500 MG CAPS 2 po BID x 10 days AMOXICILLIN 500 MG CAPS 400293 AMOXICILLIN Inactive GLYBURIDE 5 MG TAB Take one by mouth daily GLYBURIDE 5 MG TAB 735742 GLYBURIDE Inactive AZITHROMYCIN 250 MG TABS 2 po qd x 1 day, then 1 po qd x 4 days AZITHROMYCIN 250 MG TABS 6311804 AZITHROMYCIN Inactive PREDNISONE 20 MG TAB 2 tabs daily for 3 days, 1 tab daily for 3 days, 1/2 tab daily for 2 days PREDNISONE 20 MG TAB 509435 PREDNISONE Inactive PREDNISONE 20 MG TAB 2 tabs daily for 5 days, then 1 daily for 5 days, then 0.5 for 4 days PREDNISONE 20 MG TAB 351802 PREDNISONE Inactive AZITHROMYCIN 250 MG TABS 2 po qd x 1 day, then 1 po qd x 4 days AZITHROMYCIN 250 MG TABS 1117705 AZITHROMYCIN Inactive PREDNISONE 20 MG TAB 2 tabs daily for 3 days, 1 tab daily for 3 days, 1/2 tab daily for 2 days PREDNISONE 20 MG TAB 336557 PREDNISONE Inactive TRIAMCINOLONE ACETONIDE 0.1 % OINT Apply to affected areas TID for up to 2 weeks TRIAMCINOLONE ACETONIDE 0.1 % OINT 9643014 TRIAMCINOLONE ACETONIDE Inactive Immunizations Vaccine Administration Date [...] Panel - Chemistry sodium, serum 137 mmol/L 913-008 7797/06/06 carbon dioxide, venous blood 24.9 mmol/L 21.0-32.0 [...] Panel - Chemistry sodium, serum 139 mmol/L 477-102 9955/03/17 carbon dioxide, venous blood 29.0 mmol/L 21.0-32.0 [...] 8.5 % 4.3-6.0 sodium, serum 137 mmol/L 770-344 9439/02/12 potassium, serum 5.1 mmol/L 3.5-5.2 chloride, serum 103 mmol/L 98-107 carbon dioxide, venous blood 24.4 mmol/L 21.0-32.0 blood glucose 261 mg/dL 65-110 calcium, serum 9.0 mg/dL 8.5-10.1 urea nitrogen, blood 44 mg/dL 7-18 creatinine, serum 2.37 mg/dL 0.55-1.30 Lab Report: Lipid Panel, HGBA1C, Comp. Metabolic Panel - Chemistry cholesterol, serum 126 mg/dL 488-232 5700/02/07 triglyceride, serum, fasting 83 mg/dL 30-200 HDL cholesterol, serum 70 mg/dL 32-96 LDL cholesterol, serum 39 mg/dL 0-130 hemoglobin A1C, blood, as % of total hemoglobin 8.3 % 4.3-6.0 sodium, serum 141 mmol/L 613-465 1428/02/07 carbon dioxide, venous blood 26.0 mmol/L 21.0-32.0 [...] 2.6-7.2 Encounters Code Encounter Date Provider Facility CPT-98642 Level 4 Est. Patient 09:29:28 GARMENT PRESSER Simon Castillo MD [facility] CPT-11527 Level 3 Est. Patient 09:18:25 CDT Simon Castillo MD [facility] CPT-15850 Level 4 Est. Patient 11:51:23 CDT Simon Castillo MD [facility] CPT-82163 Level 4 Est. Patient 14:32:04 CDT Neto Oshae DO [facility] CPT-84819 Level 3 Est. Patient 08:41:43 CDT Giles Nashamayal [facility] CPT-85177 Level 3 Est. Patient 08:40:53 CDT Jillina Nashzell [facility] CPT-64288 Level 3 Est. Patient 08:36:52 CDT Jillina Nashzell [facility] CPT-32586 Level 3 Est. Patient 09:08:44 CDT Jonathanmeli Nashamayal [facility] CPT-33930 Level 4 Est. Patient 09:17:32 GARMENT PRESSER Simon Castillo MD [facility] CPT-29199 Level 3 Est. Patient 11:22:22 GARMENT PRESSER Simon Castillo MD [facility] CPT-14632 Level 3 Est. Patient 09:02:14 CDT Simon Castillo MD [facility] CPT-45029 Level 4 Est. Patient 08:47:25 CDT Simon Castillo MD [facility] CPT-13304 Level 4 Est. Patient 10:17:25 CDT Simon Castillo MD [facility] CPT-27760 Level 4 Est. Patient 10:10:09 GARMENT PRESSER Simon Castillo MD [facility] CPT-84127 Level 4 Est. Patient 11:48:19 CDT Simon Castillo MD [facility] CPT-14273 Level 4 Est. Patient 08:59:29 CDT Simon Castillo MD [facility] CPT-23113 Level 4 Est. Patient 10:52:51 GARMENT PRESSER Simon Castillo MD [facility] CPT-38951 Level 4 Est. Patient 11:50:30 CDT Simon Castillo MD [facility] CPT-94406 Level 4 Est. Patient 09:54:46 CDT Simon Castillo MD [facility] CPT-52895 Level 3 Est. Patient 11:10:14 CDT Simon Castillo MD [facility] CPT-70261 Level 4 Est. Patient 09:44:02 CDT Simon Castillo MD [facility] CPT-67513 Level 3 Est. Patient 09:27:48 CDT Simon Castillo MD [facility] CPT-38956 Level 3 Est. Patient 09:58:06 GARMENT PRESSER Simon Castillo MD [facility] CPT-92121 Level 3 Est. Patient 09:51:35 CDT Simon Castillo MD [facility] Procedures Code Procedure Name Date Entry Date Standard Description CPT-08558 First Vx - Ix admin for Medicare patients 17:33:39 CDT CPT-99846 Fluzone High-Dose Intramuscular Suspension 17:33:39 CDT CPT-G0438 Initial Annual Wellness Exam 08:57:30 CDT CPT-81922 Chest 2V Frontal and Lat - XRAY USE ONLY 09:00:14 CDT CPT-07221 Venipuncture Draw Fee 13:33:02 CDT CPT-91136 Bone Density 09:37:49 GARMENT PRESSER CPT-86439 Fluzone High Dose 17:20:42 CDT CPT-55845 Prevnar 13 17:20:42 CDT CPT-30515 Administration 2+ single or combination vaccines inc oral 17:20:42 CDT CPT-58826 Administration single or combination vaccine inc oral 17 :20:42 CDT CPT-46611 Hand comp min 3V 09:24:38 CDT CPT-89771 Venipuncture Draw Fee 08:07:29 GARMENT PRESSER CPT-08290 Venipuncture Draw Fee 09:02:51 GARMENT PRESSER CPT-57334 Venipuncture Draw Fee 12:45:08 GARMENT PRESSER CPT-10047 Venipuncture Draw Fee 09:25:31 CDT CPT-G0008 Administration of Influenza Virus Vaccine 14:41:29 CDT CPT-68544 Fluzone High-Dose Intramuscular Suspension 14:41:29 CDT CPT-Cryo Cryotherapy 11:48:20 CDT CPT-38904 EKG Trac and Interp 09:21:58 CDT CPT-36467 Chest 2V Frontal and Lat 09:21:58 CDT CPT-Cryo Cryotherapy 10:54:51 GARMENT PRESSER CPT-59947 Administration 2+ single or combination vaccines inc oral 10:42:19 CDT CPT-36602 Administration single or combination vaccine inc oral 10 :42:19 CDT CPT-87530 Pneumovax 10:42:19 CDT CPT-22429 Influenza High Dose age 65+ 10:42:19 CDT CPT-34597 Administration single or combination vaccine inc oral 13 :18:54 CDT CPT-82688 Influenza High Dose age 65+ 13:18:54 CDT CPT-09952 Venipuncture Draw Fee 11:53:16 CDT CPT-95119 LS spine comp w obliq 11:03:13 CDT CPT-Cryo Cryotherapy 08:27:16 GARMENT PRESSER CPT-32765 Administration single or combination vaccine inc oral 10 :56:34 CDT CPT-42686 Influenza High Dose age 65+ 10:56:34 CDT
--- OUTSIDE RECORDS SUMMARY | 2018-03-31 16:21 | XMS REPORT | Clinical Summary ---
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 ICD-V58.65 Inactive Simon Castillo MD Hand pain, [...] MG ORAL TABS 1 po BID GLIMEPIRIDE 20426044214 Active Simon Castillo MD Active ASPIRIN EC 81 MG ORAL TBEC 1 po qd ASPIRIN 42332689398 Active Simon Castillo MD Active CLOTRIMAZOLE 1 % EXT CREA Apply to affected area of feet twice daily PRN Rash CLOTRIMAZOLE 22272468515 No Longer Active Simon Castillo MD Active PREDNISONE 5 MG TAB 1 po BID PREDNISONE 04608498304 Active Simon Castillo MD Active FISH OIL 1000 MG CPDR 1 po BID OMEGA-3 FATTY ACIDS 95580318865 Active Simon Castillo MD Active LISINOPRIL 10 MG TABS 1 p qd LISINOPRIL 17331257718 Active Simon Castillo MD Active CLARITIN 10 MG TAB 1 tablet by mouth daily as needed for allergies LORATADINE 41299243476 No Longer Active Simon Castillo MD Active TRIAMCINOLONE ACETONIDE 0.1 % OINT Apply to affected areas TID for up to 2 weeks TRIAMCINOLONE ACETONIDE 05708407924 No Longer Active Simon Castillo MD Active LASIX 20 MG TAB 1 tablet by mouth daily x 2 days FUROSEMIDE 76642463003 No Longer Active Simon Castlilo MD Active SULFASALAZINE 500 MG ORAL TBEC 2 tabs BID SULFASALAZINE 56740828840 No Longer Active Neto Oshea DO Active PREDNISONE 20 MG TAB 2 tabs daily for 3 days, 1 tab daily for 3 days, 1/2 tab daily for 2 days PREDNISONE 53799108063 No Longer Active 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 ART SUPERVISOR Active PREDNISONE 20 MG TAB 1 tablet daily for airway inflammation 02/25 PREDNISONE 39231423245 No Longer Active 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 ART SUPERVISOR Active AZITHROMYCIN 250 MG TABS 2 po qd x 1 day, then 1 po qd x 4 days AZITHROMYCIN 30443834442 No Longer Active 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 ART SUPERVISOR Active HYDROCODONE-ACETAMINOPHEN 5-325 MG TABS 1 tab by mouth 8 hours as needed for pain HYDROCODONE-ACETAMINOPHEN 75064641291 Active Simon Castillo MD Active TRAMADOL HCL 50 MG TABS 1 po q6hr PRN Pain TRAMADOL HCL 95734184398 No Longer Active Simon Castillo MD Active PREDNISONE 5 MG TABS 1 po qod PREDNISONE 08003286525 No Longer Active Simon Castillo MD Active SYMBICORT 160-4.5 MCG/ACT AERO 2 puff BID BUDESONIDE- FORMOTEROL FUMARATE 86087685904 No Longer Active Simon Castillo MD Active FLONASE 50 MCG/ACT SUSP 2 puffs in each nostril daily FLUTICASONE PROPIONATE 98529851347 No Longer Active Simon Castillo MD Active PREDNISONE 20 MG TAB 2 tabs daily for 5 days, then 1 daily for 5 days PREDNISONE 37762736309 No Longer Active Simon Castillo MD Active PREDNISONE 20 MG TAB 2 tabs daily for 5 days, then 1 daily for 5 days, then 0.5 for 4 days PREDNISONE 76830492819 No Longer Active Simon Castillo MD Active PREDNISONE 20 MG TAB 2 tabs daily for 3 days, 1 tab daily for 3 days, 1/2 tab daily for 2 days PREDNISONE 71650509352 No Longer Active Simon Castillo MD Active AZITHROMYCIN 250 MG TABS 2 po qd x 1 day, then 1 po qd x 4 days AZITHROMYCIN 36367619468 No Longer Active Simon Castillo MD Active CARVEDILOL 6.25 MG TABS 1 po BID CARVEDILOL 02838779393 Active Simon Castillo MD Active LISINOPRIL-HYDROCHLOROTHIAZIDE 20-12.5 MG TABS 1/2 tab by mouth daily LISINOPRIL-HYDROCHLOROTHIAZIDE 04026991740 No Longer Active Simon Castillo MD Active TRAMADOL HCL 50 MG TABS 1-2 tablets every 6 hours as needed for pain TRAMADOL HCL 67146685874 Active Giles Tatum APRN Active PREDNISONE 5 MG TAB Take one po qod PREDNISONE 55519701655 No Longer Active Simon Castillo MD Active GLYBURIDE 5 MG TAB Take one by mouth daily GLYBURIDE 47108878527 No Longer Active Simon Castillo MD Active LEVAQUIN 750 MG TABS 1 po qod x 5 doses LEVOFLOXACIN 15581488696 No Longer Active Simon Castillo MD Active CETIRIZINE HCL 10 MG TABS 1 po qd as needed for allergies CETIRIZINE HCL 37266755434 No Longer Active Simon Castillo MD Active BILBERRY CAPS 1 tab daily BILBERRY (VACCINIUM MYRTILLUS) CAPS 97587093771 Active Simon Catsillo MD Active ATENOLOL 50 MG TABS Take one by mouth daily ATENOLOL 38069290644 No Longer Active Simon Castillo MD Active FLONASE 50 MCG/ACT SUSP 2 puffs in each nostril daily FLUTICASONE PROPIONATE 04971287219 No Longer Active Simon Castillo MD Active GLYBURIDE 5 MG TAB Take one by mouth daily GLYBURIDE 56327297980 No Longer Active Simon Castillo MD Active SYMBICORT 80-4.5 MCG/ACT AERO 2 puffs twice a day BUDESONIDE-FORMOTEROL FUMARATE 48360113716 No Longer Active Simon Castillo MD Active PREDNISONE 20 MG TAB 2 tabs daily for 4 days, 1 tab daily for 4 days, 1/2 tab daily for 4 days PREDNISONE 98926134696 No Longer Active Simon Castillo MD Active AMOXICILLIN 500 MG CAPS 2 po BID x 10 days AMOXICILLIN 27627845930 No Longer Active Simon Castillo MD Active METFORMIN HCL 1000 MG TABS 1 by mount twice a day METFORMIN HCL 94959010184 No Longer Active Simon Castillo MD Active LUTEIN-ZEAXANTHIN 6-1 MG TABS Take 2 by mouth daily LUTEIN-ZEAXANTHIN 41118177871 Active Simon Castillo MD Active IBUPROFEN 800 MG TABS Take 1 tab every 6 hrs prn IBUPROFEN 05068463964 No Longer Active Simon Castillo MD Active GLYBURIDE 2.5 MG TABS Take one by mouth daily GLYBURIDE 69508440516 No Longer Active Simon Castillo MD Active LANCETS MISC 2 qd LANCETS 10020243750 Active Pamela Conde Active ACACIA CONTOUR TEST STRP Use with testing twice daily GLUCOSE BLOOD 74057946426 Active Simon Castillo MD Active GLYBURIDE 2.5 MG TABS Take one by mouth daily GLYBURIDE 2.5 MG TABS 990419 GLYBURIDE Inactive PREDNISONE 20 MG TAB 2 tabs daily for 4 days, 1 tab daily for 4 days, 1/2 tab daily for 4 days PREDNISONE 20 MG TAB 217383 PREDNISONE Inactive SYMBICORT 80-4.5 MCG/ACT AERO 2 puffs twice a day SYMBICORT 80-4.5 MCG/ACT AERO BUDESONIDE-FORMOTEROL FUMARATE Inactive FLONASE 50 MCG/ACT SUSP 2 puffs in each nostril daily FLONASE 50 MCG/ACT SUSP FLUTICASONE PROPIONATE Inactive ATENOLOL 50 MG TABS Take one by mouth daily ATENOLOL 50 MG TABS 095388 ATENOLOL Inactive CETIRIZINE HCL 10 MG TABS 1 po qd as needed for allergies CETIRIZINE HCL 10 MG TABS 8344093 CETIRIZINE HCL Inactive LEVAQUIN 750 MG TABS 1 po qod x 5 doses LEVAQUIN 750 MG TABS 171744 LEVOFLOXACIN Inactive GLYBURIDE 5 MG TAB Take one by mouth daily GLYBURIDE 5 MG TAB 829951 GLYBURIDE Inactive PREDNISONE 5 MG TAB Take one po qod PREDNISONE 5 MG TAB 654183 PREDNISONE Inactive PREDNISONE 20 MG TAB 2 tabs daily for 5 days, then 1 daily for 5 days PREDNISONE 20 MG TAB 747223 PREDNISONE Inactive FLONASE 50 MCG/ACT SUSP 2 puffs in each nostril daily FLONASE 50 MCG/ACT SUSP FLUTICASONE PROPIONATE Inactive SYMBICORT 160-4.5 MCG/ACT AERO 2 puff BID SYMBICORT 160-4.5 MCG/ACT AERO BUDESONIDE-FORMOTEROL FUMARATE Inactive PREDNISONE 5 MG TABS 1 po qod PREDNISONE 5 MG TABS 547828 PREDNISONE Inactive PREDNISONE 20 MG TAB 1 tablet daily for airway inflammation 02/25 PREDNISONE 20 MG TAB 939438 PREDNISONE Inactive SULFASALAZINE 500 MG ORAL TBEC 2 tabs BID SULFASALAZINE 500 MG ORAL TBEC 654722 SULFASALAZINE Inactive LASIX 20 MG TAB 1 tablet by mouth daily x 2 days LASIX 20 MG TAB 648477 FUROSEMIDE Inactive CLARITIN 10 MG TAB 1 tablet by mouth daily as needed for allergies CLARITIN 10 MG TAB 183254 LORATADINE Inactive CLOTRIMAZOLE 1 % EXT CREA Apply to affected area of feet twice daily PRN Rash CLOTRIMAZOLE 1 % EXT CREA 588831 CLOTRIMAZOLE Inactive AMOXICILLIN 500 MG CAPS 2 po BID x 10 days AMOXICILLIN 500 MG CAPS 186514 AMOXICILLIN Inactive GLYBURIDE 5 MG TAB Take one by mouth daily GLYBURIDE 5 MG TAB 737789 GLYBURIDE Inactive AZITHROMYCIN 250 MG TABS 2 po qd x 1 day, then 1 po qd x 4 days AZITHROMYCIN 250 MG TABS 4235984 AZITHROMYCIN Inactive PREDNISONE 20 MG TAB 2 tabs daily for 3 days, 1 tab daily for 3 days, 1/2 tab daily for 2 days PREDNISONE 20 MG TAB 920318 PREDNISONE Inactive PREDNISONE 20 MG TAB 2 tabs daily for 5 days, then 1 daily for 5 days, then 0.5 for 4 days PREDNISONE 20 MG TAB 876006 PREDNISONE Inactive AZITHROMYCIN 250 MG TABS 2 po qd x 1 day, then 1 po qd x 4 days AZITHROMYCIN 250 MG TABS 2703487 AZITHROMYCIN Inactive PREDNISONE 20 MG TAB 2 tabs daily for 3 days, 1 tab daily for 3 days, 1/2 tab daily for 2 days PREDNISONE 20 MG TAB 938821 PREDNISONE Inactive TRIAMCINOLONE ACETONIDE 0.1 % OINT Apply to affected areas TID for up to 2 weeks TRIAMCINOLONE ACETONIDE 0.1 % OINT 2102442 TRIAMCINOLONE ACETONIDE Inactive Immunizations Vaccine Administration Date [...] Panel - Chemistry sodium, serum 137 mmol/L 598-092 6459/06/06 carbon dioxide, venous blood 24.9 mmol/L 21.0-32.0 [...] Panel - Chemistry cholesterol, serum 126 mg/dL 377-517 6581/02/07 triglyceride, serum, fasting 83 mg/dL 30-200 HDL cholesterol, serum 70 mg/dL 32-96 LDL cholesterol, serum 39 mg/dL 0-130 hemoglobin A1C, blood, as % of total hemoglobin 8.3 % 4.3-6.0 sodium, serum 141 mmol/L 132-043 3008/02/07 carbon dioxide, venous blood 26.0 mmol/L 21.0-32.0 [...] 2.6-7.2 Encounters Code Encounter Date Provider Facility CPT-63444 Level 4 Est. Patient 09:29:28 SUPERVISOR BINDERY Simon Castillo MD [facility] CPT-17197 Level 3 Est. Patient 09:18:25 CDT Simon Castillo MD [facility] CPT-27218 Level 4 Est. Patient 11:51:23 CDT Simon Castillo MD [facility] CPT-53359 Level 4 Est. Patient 14:32:04 CDT Neto Oshea DO [facility] CPT-83787 Level 3 Est. Patient 08:41:43 CDT Giles Tatum [facility] CPT-15390 Level 3 Est. Patient 08:40:53 CDT Giles Salcidol [facility] CPT-12018 Level 3 Est. Patient 08:36:52 CDT Giles Salcidol [facility] CPT-71281 Level 3 Est. Patient 09:08:44 CDT Giles Salcidol [facility] CPT-77827 Level 4 Est. Patient 09:17:32 SUPERVISOR BINDERY Simon Castillo MD [facility] CPT-45822 Level 3 Est. Patient 11:22:22 SUPERVISOR BINDERY Simon Castillo MD [facility] CPT-75623 Level 3 Est. Patient 09:02:14 CDT Simon Castillo MD [facility] CPT-55979 Level 4 Est. Patient 08:47:25 CDT Simon Castillo MD [facility] CPT-82416 Level 4 Est. Patient 10:17:25 CDT Simon Castillo MD [facility] CPT-78769 Level 4 Est. Patient 10:10:09 SUPERVISOR BINDERY Simon Castillo MD [facility] CPT-14654 Level 4 Est. Patient 11:48:19 CDT Simon Castillo MD [facility] CPT-48127 Level 4 Est. Patient 08:59:29 CDT Simon Castillo MD [facility] CPT-28486 Level 4 Est. Patient 10:52:51 SUPERVISOR BINDERY Simon Castillo MD [facility] CPT-57768 Level 4 Est. Patient 11:50:30 CDT Simon Castillo MD [facility] CPT-03975 Level 4 Est. Patient 09:54:46 CDT Simon Castillo MD [facility] CPT-82045 Level 3 Est. Patient 11:10:14 CDT Simon Castillo MD [facility] CPT-07155 Level 4 Est. Patient 09:44:02 CDT Simon Castillo MD [facility] CPT-41766 Level 3 Est. Patient 09:27:48 CDT Simon Castillo MD [facility] CPT-83409 Level 3 Est. Patient 09:58:06 SUPERVISOR BINDERY Simon Castillo MD [facility] CPT-76384 Level 3 Est. Patient 09:51:35 CDT Simon Castillo MD [facility] Procedures Code Procedure Name Date Entry Date Standard Description CPT-72195 Lipid - LAB USE ONLY 17:15:33 CDT CPT-18834 HGBA1C - LAB USE ONLY 17:15:33 CDT CPT-19499 CMP - LAB USE ONLY 17:15:33 CDT CPT-58501 Venipuncture Draw Fee 17:15:33 CDT CPT-TCM Transitional Care Mgmt-High 11:01:28 SUPERVISOR BINDERY CPT-69187 First Vx - Ix admin for Medicare patients 17:33:39 CDT CPT-42661 Fluzone High-Dose Intramuscular Suspension 17:33:39 CDT CPT-G0438 Initial Annual Wellness Exam 08:57:30 CDT CPT-60124 Chest 2V Frontal and Lat - XRAY USE ONLY 09:00:14 CDT CPT-31667 Venipuncture Draw Fee 13:33:02 CDT CPT-85460 Bone Density 09:37:49 SUPERVISOR BINDERY CPT-30540 Fluzone High Dose 17:20:42 CDT CPT-26544 Prevnar 13 17:20:42 CDT CPT-22575 Administration 2+ single or combination vaccines inc oral 17:20:42 CDT CPT-48569 Administration single or combination vaccine inc oral 17 :20:42 CDT CPT-45190 Hand comp min 3V 09:24:38 CDT CPT-93182 Venipuncture Draw Fee 08:07:29 SUPERVISOR BINDERY CPT-15537 Venipuncture Draw Fee 09:02:51 SUPERVISOR BINDERY CPT-06946 Venipuncture Draw Fee 12:45:08 SUPERVISOR BINDERY CPT-93149 Venipuncture Draw Fee 09:25:31 CDT CPT-G0008 Administration of Influenza Virus Vaccine 14:41:29 CDT CPT-66683 Fluzone High-Dose Intramuscular Suspension 14:41:29 CDT CPT-Cryo Cryotherapy 11:48:20 CDT CPT-48429 EKG Trac and Interp 09:21:58 CDT CPT-08775 Chest 2V Frontal and Lat 09:21:58 CDT CPT-Cryo Cryotherapy 10:54:51 SUPERVISOR BINDERY CPT-56338 Administration 2+ single or combination vaccines inc oral 10:42:19 CDT CPT-35636 Administration single or combination vaccine inc oral 10 :42:19 CDT CPT-23657 Pneumovax 10:42:19 CDT CPT-06796 Influenza High Dose age 65+ 10:42:19 CDT CPT-55218 Administration single or combination vaccine inc oral 13 :18:54 CDT CPT-78662 Influenza High Dose age 65+ 13:18:54 CDT CPT-47082 Venipuncture Draw Fee 11:53:16 CDT CPT-11965 LS spine comp w obliq 11:03:13 CDT CPT-Cryo Cryotherapy 08:27:16 SUPERVISOR BINDERY CPT-10914 Administration single or combination vaccine inc oral 10 :56:34 CDT CPT-47094 Influenza High Dose age 65+ 10:56:34 CDT
--- OUTSIDE RECORDS SUMMARY | 2018-03-31 16:22 | XMS REPORT | Clinical Summary ---
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 Kerry Castillo MD Pharyngitis ICD-462 Kerry Castillo MD Dyspnea ICD-786.09 Kerry Castillo MD 2016 Peripheral edema ICD-782.3 Kerry Castillo MD Steroid use, usp ICD-V58.65 Kerry Castillo MD Medication List Medication Instructions Start Date Stop Date Generic Name NDC Status Provider Patient Instruction GLIMEPIRIDE 4 MG ORAL TABS 1 po BID GLIMEPIRIDE 28656627381 Active Simon Castillo MD Active ASPIRIN EC 81 MG ORAL TBEC 1 po qd ASPIRIN 28012436731 Lin Castillo MD Active CLOTRIMAZOLE 1 % EXT CREA Apply to affected area of feet twice daily PRN Rash CLOTRIMAZOLE 55525108919 No Longer Active Simon Castillo MD Active PREDNISONE 5 MG TAB 1 po BID PREDNISONE 84970253318 Active Simon Castillo MD Active FISH OIL 1000 MG CPDR 1 po BID OMEGA-3 FATTY ACIDS 11668501202 Active Simon Castillo MD Active LISINOPRIL 10 MG TABS 1 p qd LISINOPRIL 20624222119 Active Simon Castillo MD Active CLARITIN 10 MG TAB 1 tablet by mouth daily as needed for allergies LORATADINE 48677318984 No Longer Active Simon Castillo MD Active TRIAMCINOLONE ACETONIDE 0.1 % OINT Apply to affected areas TID for up to 2 weeks TRIAMCINOLONE ACETONIDE 79308940542 No Longer Active Simon Castillo MD Active LASIX 20 MG TAB 1 tablet by mouth daily x 2 days FUROSEMIDE 49804599899 No Longer Active Simon Castillo MD Active SULFASALAZINE 500 MG ORAL TBEC 2 tabs BID SULFASALAZINE 88390622171 No Longer Active Neto Oshea DO Active PREDNISONE 20 MG TAB 2 tabs daily for 3 days, 1 tab daily for 3 days, 1/2 tab daily for 2 days PREDNISONE 52917278005 No Longer Active 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 PREDNISONE 20 MG TAB 1 tablet daily for airway inflammation 02/25 PREDNISONE 87820054218 No Longer Active 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 AZITHROMYCIN 250 MG TABS 2 po qd x 1 day, then 1 po qd x 4 days AZITHROMYCIN 49577573055 No Longer Active 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 HYDROCODONE-ACETAMINOPHEN 5-325 MG TABS 1 tab by mouth 8 hours as needed for pain HYDROCODONE-ACETAMINOPHEN 61210960170 Active Simon Castillo MD Active TRAMADOL HCL 50 MG TABS 1 po q6hr PRN Pain TRAMADOL HCL 73866442661 No Longer Active Simon Castillo MD Active PREDNISONE 5 MG TABS 1 po qod PREDNISONE 12994781174 No Longer Active Simon Castillo MD Active SYMBICORT 160-4.5 MCG/ACT AERO 2 puff BID BUDESONIDE- FORMOTEROL FUMARATE 42672079007 No Longer Active Simon Castillo MD Active FLONASE 50 MCG/ACT SUSP 2 puffs in each nostril daily FLUTICASONE PROPIONATE 39823846066 No Longer Active Simon Castillo MD Active PREDNISONE 20 MG TAB 2 tabs daily for 5 days, then 1 daily for 5 days PREDNISONE 42388520754 No Longer Active Simon Castillo MD Active PREDNISONE 20 MG TAB 2 tabs daily for 5 days, then 1 daily for 5 days, then 0.5 for 4 days PREDNISONE 77910742084 No Longer Active Simon Castillo MD Active PREDNISONE 20 MG TAB 2 tabs daily for 3 days, 1 tab daily for 3 days, 1/2 tab daily for 2 days PREDNISONE 49664931507 No Longer Active Simon Castillo MD Active AZITHROMYCIN 250 MG TABS 2 po qd x 1 day, then 1 po qd x 4 days AZITHROMYCIN 22087064377 No Longer Active Simon Castillo MD Active CARVEDILOL 6.25 MG TABS 1 po BID CARVEDILOL 83163618881 Active iSmon Castillo MD Active LISINOPRIL-HYDROCHLOROTHIAZIDE 20-12.5 MG TABS 1/2 tab by mouth daily LISINOPRIL-HYDROCHLOROTHIAZIDE 47776522058 No Longer Active Simon Castillo MD Active TRAMADOL HCL 50 MG TABS 1-2 tablets every 6 hours as needed for pain TRAMADOL HCL 63273667941 Active Giles Tatum APRN Active PREDNISONE 5 MG TAB Take one po qod PREDNISONE 86225653125 No Longer Active Simon Castillo MD Active GLYBURIDE 5 MG TAB Take one by mouth daily GLYBURIDE 80606159166 No Longer Active Simon Castillo MD Active LEVAQUIN 750 MG TABS 1 po qod x 5 doses LEVOFLOXACIN 86372119457 No Longer Active Simon Castillo MD Active CETIRIZINE HCL 10 MG TABS 1 po qd as needed for allergies CETIRIZINE HCL 35326716088 No Longer Active Simon Castillo MD Active BILBERRY CAPS 1 tab daily BILBERRY (VACCINIUM MYRTILLUS) CAPS 52744389834 Active Simon Castillo MD Active ATENOLOL 50 MG TABS Take one by mouth daily ATENOLOL 80933109320 No Longer Active Simon Castillo MD Active FLONASE 50 MCG/ACT SUSP 2 puffs in each nostril daily FLUTICASONE PROPIONATE 47518000677 No Longer Active Simon Castillo MD Active GLYBURIDE 5 MG TAB Take one by mouth daily GLYBURIDE 53540953471 No Longer Active Simon Castillo MD Active SYMBICORT 80-4.5 MCG/ACT AERO 2 puffs twice a day BUDESONIDE-FORMOTEROL FUMARATE 81133976442 No Longer Active Simon Castillo MD Active PREDNISONE 20 MG TAB 2 tabs daily for 4 days, 1 tab daily for 4 days, 1/2 tab daily for 4 days PREDNISONE 47018219946 No Longer Active Simon Castillo MD Active AMOXICILLIN 500 MG CAPS 2 po BID x 10 days AMOXICILLIN 17734107493 No Longer Active Simon Castillo MD Active METFORMIN HCL 1000 MG TABS 1 by mount twice a day METFORMIN HCL 60500940527 No Longer Active Simon Castillo MD Active LUTEIN-ZEAXANTHIN 6-1 MG TABS Take 2 by mouth daily LUTEIN-ZEAXANTHIN 39396679136 Active Simon Castillo MD Active IBUPROFEN 800 MG TABS Take 1 tab every 6 hrs prn IBUPROFEN 34511203327 No Longer Active Simon Castillo MD Active GLYBURIDE 2.5 MG TABS Take one by mouth daily GLYBURIDE 38902451093 No Longer Active Simon Castillo MD Active LANCETS MISC 2 qd LANCETS 65675678983 Active Pamela Conde Active ACACIA CONTOUR TEST STRP Use with testing twice daily GLUCOSE BLOOD 73036205744 Active Simon Castillo MD Active GLYBURIDE 2.5 MG TABS Take one by mouth daily GLYBURIDE 2.5 MG TABS 900290 GLYBURIDE Inactive PREDNISONE 20 MG TAB 2 tabs daily for 4 days, 1 tab daily for 4 days, 1/2 tab daily for 4 days PREDNISONE 20 MG TAB 520162 PREDNISONE Inactive SYMBICORT 80-4.5 MCG/ACT AERO 2 puffs twice a day SYMBICORT 80-4.5 MCG/ACT AERO BUDESONIDE-FORMOTEROL FUMARATE Inactive FLONASE 50 MCG/ACT SUSP 2 puffs in each nostril daily FLONASE 50 MCG/ACT SUSP FLUTICASONE PROPIONATE Inactive ATENOLOL 50 MG TABS Take one by mouth daily ATENOLOL 50 MG TABS 978393 ATENOLOL Inactive CETIRIZINE HCL 10 MG TABS 1 po qd as needed for allergies CETIRIZINE HCL 10 MG TABS 4635115 CETIRIZINE HCL Inactive LEVAQUIN 750 MG TABS 1 po qod x 5 doses LEVAQUIN 750 MG TABS 100507 LEVOFLOXACIN Inactive GLYBURIDE 5 MG TAB Take one by mouth daily GLYBURIDE 5 MG TAB 709476 GLYBURIDE Inactive PREDNISONE 5 MG TAB Take one po qod PREDNISONE 5 MG TAB 090259 PREDNISONE Inactive PREDNISONE 20 MG TAB 2 tabs daily for 5 days, then 1 daily for 5 days PREDNISONE 20 MG TAB 094900 PREDNISONE Inactive FLONASE 50 MCG/ACT SUSP 2 puffs in each nostril daily FLONASE 50 MCG/ACT SUSP FLUTICASONE PROPIONATE Inactive SYMBICORT 160-4.5 MCG/ACT AERO 2 puff BID SYMBICORT 160-4.5 MCG/ACT AERO BUDESONIDE-FORMOTEROL FUMARATE Inactive PREDNISONE 5 MG TABS 1 po qod PREDNISONE 5 MG TABS 520122 PREDNISONE Inactive PREDNISONE 20 MG TAB 1 tablet daily for airway inflammation 02/25 PREDNISONE 20 MG TAB 884546 PREDNISONE Inactive SULFASALAZINE 500 MG ORAL TBEC 2 tabs BID SULFASALAZINE 500 MG ORAL TBEC 648459 SULFASALAZINE Inactive LASIX 20 MG TAB 1 tablet by mouth daily x 2 days LASIX 20 MG TAB 944403 FUROSEMIDE Inactive CLARITIN 10 MG TAB 1 tablet by mouth daily as needed for allergies CLARITIN 10 MG TAB 186888 LORATADINE Inactive CLOTRIMAZOLE 1 % EXT CREA Apply to affected area of feet twice daily PRN Rash CLOTRIMAZOLE 1 % EXT CREA 405353 CLOTRIMAZOLE Inactive AMOXICILLIN 500 MG CAPS 2 po BID x 10 days AMOXICILLIN 500 MG CAPS 996105 AMOXICILLIN Inactive GLYBURIDE 5 MG TAB Take one by mouth daily GLYBURIDE 5 MG TAB 672650 GLYBURIDE Inactive AZITHROMYCIN 250 MG TABS 2 po qd x 1 day, then 1 po qd x 4 days AZITHROMYCIN 250 MG TABS 5608844 AZITHROMYCIN Inactive PREDNISONE 20 MG TAB 2 tabs daily for 3 days, 1 tab daily for 3 days, 1/2 tab daily for 2 days PREDNISONE 20 MG TAB 829772 PREDNISONE Inactive PREDNISONE 20 MG TAB 2 tabs daily for 5 days, then 1 daily for 5 days, then 0.5 for 4 days PREDNISONE 20 MG TAB 574750 PREDNISONE Inactive AZITHROMYCIN 250 MG TABS 2 po qd x 1 day, then 1 po qd x 4 days AZITHROMYCIN 250 MG TABS 7152528 AZITHROMYCIN Inactive PREDNISONE 20 MG TAB 2 tabs daily for 3 days, 1 tab daily for 3 days, 1/2 tab daily for 2 days PREDNISONE 20 MG TAB 937575 PREDNISONE Inactive TRIAMCINOLONE ACETONIDE 0.1 % OINT Apply to affected areas TID for up to 2 weeks TRIAMCINOLONE ACETONIDE 0.1 % OINT 4051617 TRIAMCINOLONE ACETONIDE Inactive Immunizations Vaccine Administration Date [...] Panel - Chemistry sodium, serum 137 mmol/L 330-498 9573/06/06 carbon dioxide, venous blood 24.9 mmol/L 21.0-32.0 [...] CBC W/DIFF, Comp. Metabolic Panel - Hematology hemoglobin, blood 13.4 g/dL 13.5-17.5 hematocrit, blood 41.1 % 41.0-53.0 mean corpuscular volume, RBC 95 fL 80-97 mean corpuscular hemoglobin, RBC 30.8 pg 27.0-31.2 mean corpuscular hemoglobin concentration, RBC 32.6 G/DL % 31.8- 35.4 red blood cell distribution width 15.5 % 11.6-14.8 platelet count 210 10^3/MM^3 10*3/mm3 034-301 3354/06/06 erythrocyte (RBC) count 4.35 10^6/MM^3 10*6/mm3 4.69-6.13 lymphocytes as percent of blood leukocytes 21.5 % 20.5-51.1 monocytes as percent of blood leukocytes 11.1 % 1.7-9.3 neutrophils as percent of blood leukocytes 62.2 % 42.2-75.2 leukocyte count, blood 7.4 10^3/MM^3 10*3/mm3 4.6-10.2 Lab Report: Lipid Panel, HGBA1C, Comp. Metabolic Panel - Chemistry calcium, serum 8.3 mg/dL 8.5-10.1 bilirubin, serum, total 0.70 mg/dL 0.00-1.00 cholesterol, serum 126 mg/dL 170-591 6046/02/07 triglyceride, serum, fasting 83 mg/dL 30-200 HDL cholesterol, serum 70 mg/dL 32-96 LDL cholesterol, serum 39 mg/dL 0-130 hemoglobin A1C, blood, as % of total hemoglobin 8.3 % 4.3-6.0 sodium, serum 141 mmol/L 102-482 2042/02/07 carbon dioxide, venous blood 26.0 mmol/L 21.0-32.0 potassium, serum 5.1 mmol/L 3.5-5.2 chloride, serum 107 mmol/L 98-107 blood glucose 159 mg/dL 65-110 urea nitrogen, blood 42 mg/dL 7-18 creatinine, serum 2.27 mg/dL 0.55-1.30 alanine aminotransferase (SGPT), serum 22 U/L 12-78 aspartate aminotransferase (SGOT), serum 19 U/L 15-37 Lab Report: Uric Acid - Chemistry uric acid, serum 6.3 mg/dL 2.6-7.2 Encounters Code Encounter Date Provider Facility CPT-35999 Level 4 Est. Patient 09:29:28 MEDICAL RECORD LIBRARIAN Simon Castillo MD [facility] CPT-32807 Level 3 Est. Patient 09:18:25 CDT Simon Castillo MD [facility] CPT-22391 Level 4 Est. Patient 11:51:23 CDT Simon Castillo MD [facility] CPT-08552 Level 4 Est. Patient 14:32:04 CDT Neto Oshea DO [facility] CPT-77785 Level 3 Est. Patient 08:41:43 CDT Giles Tatum [facility] CPT-13041 Level 3 Est. Patient 08:40:53 CDT Giles Salcidol [facility] CPT-44891 Level 3 Est. Patient 08:36:52 CDT Giles Salcidol [facility] CPT-28193 Level 3 Est. Patient 09:08:44 CDT Giles Salcidol [facility] CPT-31597 Level 4 Est. Patient 09:17:32 MEDICAL RECORD LIBRARIAN Simno Castillo MD [facility] CPT-20508 Level 3 Est. Patient 11:22:22 MEDICAL RECORD LIBRARIAN Simon Castillo MD [facility] CPT-17371 Level 3 Est. Patient 09:02:14 CDT Simon Castillo MD [facility] CPT-74775 Level 4 Est. Patient 08:47:25 CDT Simon Castillo MD [facility] CPT-31647 Level 4 Est. Patient 10:17:25 CDT Simon Castillo MD [facility] CPT-63933 Level 4 Est. Patient 10:10:09 MEDICAL RECORD LIBRARIAN Simon Castillo MD [facility] CPT-69586 Level 4 Est. Patient 11:48:19 CDT Simon Castillo MD [facility] CPT-35993 Level 4 Est. Patient 08:59:29 CDT Simon Castillo MD [facility] CPT-39630 Level 4 Est. Patient 10:52:51 MEDICAL RECORD LIBRARIAN Simon Castillo MD [facility] CPT-44412 Level 4 Est. Patient 11:50:30 CDT Simon Castillo MD [facility] CPT-13706 Level 4 Est. Patient 09:54:46 CDT Simon Castillo MD [facility] CPT-48166 Level 3 Est. Patient 11:10:14 CDT Simon Castillo MD [facility] CPT-05791 Level 4 Est. Patient 09:44:02 CDT Simon Castillo MD [facility] CPT-02702 Level 3 Est. Patient 09:27:48 CDT Simon Castillo MD [facility] CPT-94909 Level 3 Est. Patient 09:58:06 MEDICAL RECORD LIBRARIAN Simon Castillo MD [facility] CPT-50322 Level 3 Est. Patient 09:51:35 CDT Simon Castillo MD [facility] Procedures Code Procedure Name Date Entry Date Standard Description CPT-15529 Lipid - LAB USE ONLY 17:15:33 CDT CPT-29173 HGBA1C - LAB USE ONLY 17:15:33 CDT CPT-65831 CMP - LAB USE ONLY 17:15:33 CDT CPT-12406 Venipuncture Draw Fee 17:15:33 CDT CPT-TCM Transitional Care Mgmt-High 11:01:28 MEDICAL RECORD LIBRARIAN CPT-83495 First Vx - Ix admin for Medicare patients 17:33:39 CDT CPT-15667 Fluzone High-Dose Intramuscular Suspension 17:33:39 CDT CPT-G0438 Initial Annual Wellness Exam 08:57:30 CDT CPT-30404 Chest 2V Frontal and Lat - XRAY USE ONLY 09:00:14 CDT CPT-27976 Venipuncture Draw Fee 13:33:02 CDT CPT-25871 Bone Density 09:37:49 MEDICAL RECORD LIBRARIAN CPT-19992 Fluzone High Dose 17:20:42 CDT CPT-75670 Prevnar 13 17:20:42 CDT CPT-32080 Administration 2+ single or combination vaccines inc oral 17:20:42 CDT CPT-30186 Administration single or combination vaccine inc oral 17 :20:42 CDT CPT-88855 Hand comp min 3V 09:24:38 CDT CPT-14331 Venipuncture Draw Fee 08:07:29 MEDICAL RECORD LIBRARIAN CPT-80808 Venipuncture Draw Fee 09:02:51 MEDICAL RECORD LIBRARIAN CPT-42485 Venipuncture Draw Fee 12:45:08 MEDICAL RECORD LIBRARIAN CPT-29994 Venipuncture Draw Fee 09:25:31 CDT CPT-G0008 Administration of Influenza Virus Vaccine 14:41:29 CDT CPT-72981 Fluzone High-Dose Intramuscular Suspension 14:41:29 CDT CPT-Cryo Cryotherapy 11:48:20 CDT CPT-63364 EKG Trac and Interp 09:21:58 CDT CPT-57283 Chest 2V Frontal and Lat 09:21:58 CDT CPT-Cryo Cryotherapy 10:54:51 MEDICAL RECORD LIBRARIAN CPT-01435 Administration 2+ single or combination vaccines inc oral 10:42:19 CDT CPT-88840 Administration single or combination vaccine inc oral 10 :42:19 CDT CPT-38716 Pneumovax 10:42:19 CDT CPT-21088 Influenza High Dose age 65+ 10:42:19 CDT CPT-95863 Administration single or combination vaccine inc oral 13 :18:54 CDT CPT-64610 Influenza High Dose age 65+ 13:18:54 CDT CPT-59595 Venipuncture Draw Fee 11:53:16 CDT CPT-18646 LS spine comp w obliq 11:03:13 CDT CPT-Cryo Cryotherapy 08:27:16 MEDICAL RECORD LIBRARIAN CPT-32202 Administration single or combination vaccine inc oral 10 :56:34 CDT CPT-71089 Influenza High Dose age 65+ 10:56:34 CDT
--- OUTSIDE RECORDS SUMMARY | 2018-03-31 16:23 | XMS REPORT | Clinical Summary ---
Author Author Admin, E Organization [employer] Address Unknown Phone Unavailable Allergies, Adverse Reactions, [...] Castillo MD Rheumatoid arthritis Steroid use, terminal operator V58.65 Resolved Simon Castillo MD Long-term [...] bilateral ICD-729.5 Kerry Castillo MD Steroid use, halfway ICD-V58.65 Inactive [...] 1 po qd PRN Asthma/Allergies MONTELUKAST SODIUM 41538121229 Active Simon Castillo MD Active PROMETHAZINE-CODEINE 6.25-10 MG/5ML ORAL SYRUP 5ml po qHS PRN Cough PROMETHAZINE-CODEINE 17615209988 Active Simon Castillo MD Active AZITHROMYCIN 250 MG ORAL TABLET 2 po qd x 1, then 1 po qd x 4 AZITHROMYCIN 72066499779 Active Simon Castillo MD Active PREDNISONE 20 MG ORAL TABLET 2 po qd x 5 days PREDNISONE 72517708920 Active Simon Castillo MD Active VIAGRA 100 MG ORAL TABLET 0.5 to 1 po qd PRN Erectile dysfunction SILDENAFIL CITRATE 08619602226 Active Simon Castillo MD Active LUTEIN-ZEAXANTHIN 6-1 MG ORAL TABLET 2 po qd LUTEIN- ZEAXANTHIN 18996579157 Active Simon Castillo MD Active BILBERRY CAPSULE 1 po qd BILBERRY (VACCINIUM MYRTILLUS) CAPS 88410420540 Active Simon Castillo MD Active TRAMADOL HCL 50 MG ORAL TABLET 1-2 tablets every 6 hours as needed for pain TRAMADOL HCL 31961477015 No Longer Active Simon Castillo MD Active HYDROCODONE-ACETAMINOPHEN 5-325 MG ORAL TABLET 1 tab by mouth 8 hours as needed for pain HYDROCODONE-ACETAMINOPHEN 68217168185 No Longer Active Simon Castillo MD Active BUMETANIDE 0.5 MG ORAL TABLET 1 po qd BUMETANIDE 45075686878 Active Simon Castillo MD Active AUGMENTIN 875-125 MG ORAL TABLET 1 po BID x 10 days AMOXICILLIN-POT CLAVULANATE 27128481374 No Longer Active Simon Castillo MD Active PIOGLITAZONE HCL 30 MG ORAL TABLET 1 po qd PIOGLITAZONE HCL 36639087154 Active Simon Castillo MD Active GLIMEPIRIDE 4 MG ORAL TABLET 1 po BID GLIMEPIRIDE 98313099411 Active Simon Castillo MD Active ASPIRIN EC 81 MG ORAL TABLET DELAYED RELEASE 1 po qd ASPIRIN 74022630280 Active Simon Castillo MD Active CLOTRIMAZOLE 1 % EXTERNAL CREAM Apply to affected area of feet twice daily PRN Rash CLOTRIMAZOLE 81797114040 No Longer Active Simon Castillo MD Active PREDNISONE 5 MG ORAL TABLET 1 po BID PREDNISONE 66672737336 Active Dolly MCDERMOTT Active FISH OIL 1000 MG ORAL CAPSULE DELAYED RELEASE 1 po BID OMEGA- 3 FATTY ACIDS 08255312436 Active Simon Castillo MD Active LISINOPRIL 10 MG ORAL TABLET 1 p qd LISINOPRIL 00118988846 Active Simon Castillo MD Active CLARITIN 10 MG ORAL TABLET 1 tablet by mouth daily as needed for allergies LORATADINE 18734522373 No Longer Active Simon Castillo MD Active TRIAMCINOLONE ACETONIDE 0.1 % EXTERNAL OINTMENT Apply to affected areas TID for up to 2 weeks TRIAMCINOLONE ACETONIDE 03113094605 No Longer Active Simon Castillo MD Active LASIX 20 MG ORAL TABLET 1 tablet by mouth daily x 2 days FUROSEMIDE 98764061840 No Longer Active Simon Castillo MD Active SULFASALAZINE 500 MG ORAL TABLET DELAYED RELEASE 2 tabs BID 02/26 SULFASALAZINE 52569365938 No Longer Active Neto Oshea DO Active PREDNISONE 20 MG ORAL TABLET 2 tabs daily for 3 days, 1 tab daily for 3 days, 1/2 tab daily for 2 days PREDNISONE 96478560531 No Longer Active Giles Tatum APRN Active PREDNISONE 20 MG ORAL TABLET 1 tablet daily for airway inflammation PREDNISONE 05175806606 No Longer Active Giles Tatum APRN Active AZITHROMYCIN 250 MG ORAL TABLET 2 po qd x 1 day, then 1 po qd x 4 days 01/28 AZITHROMYCIN 09613687676 No Longer Active Giles Tatum APRN Active TRAMADOL HCL 50 MG ORAL TABLET 1 po q6hr PRN Pain TRAMADOL HCL 22485888310 No Longer Active Simon Castillo MD Active PREDNISONE 5 MG ORAL TABLET 1 po qod PREDNISONE 86189967519 No Longer Active Simon Castillo MD Active SYMBICORT 160-4.5 MCG/ACT INHALATION AEROSOL 2 puff BID BUDESONIDE-FORMOTEROL FUMARATE 06631896069 No Longer Active Simon Castillo MD Active FLONASE 50 MCG/ACT NASAL SUSPENSION 2 puffs in each nostril daily FLUTICASONE PROPIONATE 87774952330 No Longer Active Simon Castillo MD Active PREDNISONE 20 MG ORAL TABLET 2 tabs daily for 5 days, then 1 daily for 5 days PREDNISONE 17184964444 No Longer Active Simon Castillo MD Active PREDNISONE 20 MG ORAL TABLET 2 tabs daily for 5 days, then 1 daily for 5 days , then 0.5 for 4 days PREDNISONE 43337103550 No Longer Active Simon Castillo MD Active PREDNISONE 20 MG ORAL TABLET 2 tabs daily for 3 days, 1 tab daily for 3 days, 1/2 tab daily for 2 days PREDNISONE 49394654272 No Longer Active Simon Castillo MD Active AZITHROMYCIN 250 MG ORAL TABLET 2 po qd x 1 day, then 1 po qd x 4 days 03/16 AZITHROMYCIN 53850111077 No Longer Active Simon Castillo MD Active CARVEDILOL 6.25 MG ORAL TABLET 1 po BID CARVEDILOL 49784000434 Active Simon Castillo MD Active LISINOPRIL-HYDROCHLOROTHIAZIDE 20-12.5 MG ORAL TABLET 1/2 tab by mouth daily LISINOPRIL-HYDROCHLOROTHIAZIDE 44562342381 No Longer Active Simon Castillo MD Active PREDNISONE 5 MG ORAL TABLET Take one po qod PREDNISONE 86308515912 No Longer Active Simon Castillo MD Active GLYBURIDE 5 MG ORAL TABLET Take one by mouth daily GLYBURIDE 75299272209 No Longer Active Simon Castillo MD Active LEVAQUIN 750 MG ORAL TABLET 1 po qod x 5 doses LEVOFLOXACIN 30149784232 No Longer Active Simon Castillo MD Active CETIRIZINE HCL 10 MG ORAL TABLET 1 po qd as needed for allergies CETIRIZINE HCL 60951936858 No Longer Active Simon Castillo MD Active ATENOLOL 50 MG ORAL TABLET Take one by mouth daily ATENOLOL 77819014933 No Longer Active Simon Castillo MD Active FLONASE 50 MCG/ACT NASAL SUSPENSION 2 puffs in each nostril daily FLUTICASONE PROPIONATE 87187466540 No Longer Active Simon Castillo MD Active GLYBURIDE 5 MG ORAL TABLET Take one by mouth daily GLYBURIDE 06074214240 No Longer Active Simon Castillo MD Active SYMBICORT 80-4.5 MCG/ACT INHALATION AEROSOL 2 puffs twice a day BUDESONIDE-FORMOTEROL FUMARATE 25755988994 No Longer Active Simon Castillo MD Active PREDNISONE 20 MG ORAL TABLET 2 tabs daily for 4 days, 1 tab daily for 4 days, 1/2 tab daily for 4 days PREDNISONE 39433025224 No Longer Active Simon Castillo MD Active AMOXICILLIN 500 MG ORAL CAPSULE 2 po BID x 10 days AMOXICILLIN 78707612014 No Longer Active Simon Castillo MD Active METFORMIN HCL 1000 MG ORAL TABLET 1 by [facility] twice a day METFORMIN HCL 53112973339 No Longer Active Simon Castillo MD Active IBUPROFEN 800 MG ORAL TABLET Take 1 tab every 6 hrs prn IBUPROFEN 87058434356 No Longer Active Simon Castillo MD Active GLYBURIDE 2.5 MG ORAL TABLET Take one by mouth daily GLYBURIDE 77498455384 No Longer Active Simon Castillo MD Active LANCETS 2 qd LANCETS 31662236232 Active Pamela Hernandesoy Active ACACIA CONTOUR TEST IN VITRO STRIP Use with testing twice daily GLUCOSE BLOOD 03458766898 Active Simon Castillo MD Active GLYBURIDE 2.5 MG ORAL TABLET Take one by mouth daily GLYBURIDE 2.5 MG ORAL TABLET 572198 GLYBURIDE Inactive PREDNISONE 20 MG ORAL TABLET 2 tabs daily for 4 days, 1 tab daily for 4 days, 1/2 tab daily for 4 days PREDNISONE 20 MG ORAL TABLET 483472 PREDNISONE Inactive SYMBICORT 80-4.5 MCG/ACT INHALATION AEROSOL 2 puffs twice a day SYMBICORT 80-4.5 MCG/ACT INHALATION AEROSOL BUDESONIDE- FORMOTEROL FUMARATE Inactive FLONASE 50 MCG/ACT NASAL SUSPENSION 2 puffs in each nostril daily FLONASE 50 MCG/ACT NASAL SUSPENSION 1474304 FLUTICASONE PROPIONATE Inactive ATENOLOL 50 MG ORAL TABLET Take one by mouth daily ATENOLOL 50 MG ORAL TABLET 496482 ATENOLOL Inactive CETIRIZINE HCL 10 MG ORAL TABLET 1 po qd as needed for allergies CETIRIZINE HCL 10 MG ORAL TABLET 8323288 CETIRIZINE HCL Inactive LEVAQUIN 750 MG ORAL TABLET 1 po qod x 5 doses LEVAQUIN 750 MG ORAL TABLET 151208 LEVOFLOXACIN Inactive GLYBURIDE 5 MG ORAL TABLET Take one by mouth daily GLYBURIDE 5 MG ORAL TABLET 096862 GLYBURIDE Inactive PREDNISONE 5 MG ORAL TABLET Take one po qod PREDNISONE 5 MG ORAL TABLET 397125 PREDNISONE Inactive PREDNISONE 20 MG ORAL TABLET 2 tabs daily for 5 days, then 1 daily for 5 days PREDNISONE 20 MG ORAL TABLET 015812 PREDNISONE Inactive FLONASE 50 MCG/ACT NASAL SUSPENSION 2 puffs in each nostril daily FLONASE 50 MCG/ACT NASAL SUSPENSION 3669401 FLUTICASONE PROPIONATE Inactive SYMBICORT 160-4.5 MCG/ACT INHALATION AEROSOL 2 puff BID SYMBICORT 160-4.5 MCG/ACT INHALATION AEROSOL BUDESONIDE-FORMOTEROL FUMARATE Inactive PREDNISONE 5 MG ORAL TABLET 1 po qod PREDNISONE 5 MG ORAL TABLET 981047 PREDNISONE Inactive PREDNISONE 20 MG ORAL TABLET 1 tablet daily for airway inflammation PREDNISONE 20 MG ORAL TABLET 832231 PREDNISONE Inactive SULFASALAZINE 500 MG ORAL TABLET DELAYED RELEASE 2 tabs BID 02/26 SULFASALAZINE 500 MG ORAL TABLET DELAYED RELEASE 996570 SULFASALAZINE Inactive LASIX 20 MG ORAL TABLET 1 tablet by mouth daily x 2 days LASIX 20 MG ORAL TABLET 778095 FUROSEMIDE Inactive CLARITIN 10 MG ORAL TABLET 1 tablet by mouth daily as needed for allergies CLARITIN 10 MG ORAL TABLET 730870 LORATADINE Inactive CLOTRIMAZOLE 1 % EXTERNAL CREAM Apply to affected area of feet twice daily PRN Rash CLOTRIMAZOLE 1 % EXTERNAL CREAM 103189 CLOTRIMAZOLE Inactive HYDROCODONE-ACETAMINOPHEN 5-325 MG ORAL TABLET 1 tab by mouth 8 hours as needed for pain HYDROCODONE-ACETAMINOPHEN 5-325 MG ORAL TABLET 268847 HYDROCODONE-ACETAMINOPHEN Inactive TRAMADOL HCL 50 MG ORAL TABLET 1-2 tablets every 6 hours as needed for pain TRAMADOL HCL 50 MG ORAL TABLET 981623 TRAMADOL HCL Inactive AMOXICILLIN 500 MG ORAL CAPSULE 2 po BID x 10 days AMOXICILLIN 500 MG ORAL CAPSULE 723169 AMOXICILLIN Inactive GLYBURIDE 5 MG ORAL TABLET Take one by mouth daily GLYBURIDE 5 MG ORAL TABLET 295827 GLYBURIDE Inactive AZITHROMYCIN 250 MG ORAL TABLET 2 po qd x 1 day, then 1 po qd x 4 days 03/16 AZITHROMYCIN 250 MG ORAL TABLET 261049 AZITHROMYCIN Inactive PREDNISONE 20 MG ORAL TABLET 2 tabs daily for 3 days, 1 tab daily for 3 days, 1/2 tab daily for 2 days PREDNISONE 20 MG ORAL TABLET 911729 PREDNISONE Inactive PREDNISONE 20 MG ORAL TABLET 2 tabs daily for 5 days, then 1 daily for 5 days , then 0.5 for 4 days PREDNISONE 20 MG ORAL TABLET 794408 PREDNISONE Inactive AZITHROMYCIN 250 MG ORAL TABLET 2 po qd x 1 day, then 1 po qd x 4 days 01/28 AZITHROMYCIN 250 MG ORAL TABLET 911562 AZITHROMYCIN Inactive PREDNISONE 20 MG ORAL TABLET 2 tabs daily for 3 days, 1 tab daily for 3 days, 1/2 tab daily for 2 days PREDNISONE 20 MG ORAL TABLET 261468 PREDNISONE Inactive TRIAMCINOLONE ACETONIDE 0.1 % EXTERNAL OINTMENT Apply to affected areas TID for up to 2 weeks TRIAMCINOLONE ACETONIDE 0.1 % EXTERNAL OINTMENT 2296369 TRIAMCINOLONE ACETONIDE Inactive AUGMENTIN 875-125 MG ORAL TABLET 1 po BID x 10 days AUGMENTIN 875-125 MG ORAL TABLET 565462 AMOXICILLIN-POT CLAVULANATE Inactive Immunizations Vaccine Administration Date [...] Peptide - Chemistry sodium, serum 142 mmol/L 207-918 7549/07/18 potassium, serum 5.0 mmol/L 3.5-5.2 chloride, serum [...] Rate - Chemistry sodium, serum 142 mmol/L 346-767 7491/02/27 carbon dioxide, venous blood 26.2 mmol/L 21.0-32.0 [...] Panel - Chemistry sodium, serum 140 mmol/L 069-199 9965/07/13 carbon dioxide, venous blood 23.7 mmol/L 21.0-32.0 [...] dipstick Negative Negative sodium, serum 142 mmol/L 037-363 0270/01/08 carbon dioxide, venous blood 23.9 mmol/L 21.0-32.0 [...] Negative;Positive Encounters Code Encounter Date Provider Facility CPT-68168 Level 3 Est. Patient 11:36:15 CDT Simon Castillo MD [facility] CPT-56575 Level 4 Est. Patient 14:06:23 ROADABILITY MACHINE OPERATOR Simon Castillo [facility] CPT-34207 Level 3 Est. Patient 12:04:38 ROADABILITY MACHINE OPERATOR Giles Tatum [facility] CPT-57322 Level 3 Est. Patient 11:57:09 ROADABILITY MACHINE OPERATOR Giles Tatum [facility] CPT-49969 Level 3 Est. Patient 11:48:57 ROADABILITY MACHINE OPERATOR Giles Tatum [facility] CPT-40179 Level 4 Est. Patient 09:54:36 CDT Simon Castillo MD [facility] CPT-13238 Level 4 Est. Patient 08:48:38 CDT Simon Castillo [facility] CPT-90250 Level 4 Est. Patient 09:54:08 CDT Simon Castillo MD [facility] CPT-31026 Level 4 Est. Patient 16:11:23 CDT Simon Castillo MD [facility] CPT-95340 Level 4 Est. Patient 09:29:28 ROADABILITY MACHINE OPERATOR Simon Castillo MD [facility] CPT-65715 Level 3 Est. Patient 09:18:25 CDT Simon Castillo MD [facility] CPT-75271 Level 4 Est. Patient 11:51:23 CDT Simon Castillo MD [facility] CPT-49397 Level 4 Est. Patient 14:32:04 CDT Neto Oshea DO [facility] CPT-62007 Level 3 Est. Patient 08:41:43 CDT Giles Tatum [facility] CPT-26389 Level 3 Est. Patient 08:40:53 CDT Jillina Nashzell [facility] CPT-03646 Level 3 Est. Patient 08:36:52 CDT Jillina Nashzell [facility] CPT-87035 Level 3 Est. Patient 09:08:44 CDT Jilltriston Salcidol [facility] CPT-26843 Level 4 Est. Patient 09:17:32 ROADABILITY MACHINE OPERATOR Simon Castillo MD [facility] CPT-20210 Level 3 Est. Patient 11:22:22 ROADABILITY MACHINE OPERATOR Simon Castillo MD [facility] CPT-88521 Level 3 Est. Patient 09:02:14 CDT Simon Castillo MD [facility] CPT-97516 Level 4 Est. Patient 08:47:25 CDT Simon Castillo MD [facility] CPT-76613 Level 4 Est. Patient 10:17:25 CDT Simon Castillo MD [facility] CPT-29931 Level 4 Est. Patient 10:10:09 ROADABILITY MACHINE OPERATOR Simon Castillo MD [facility] CPT-02335 Level 4 Est. Patient 11:48:19 CDT Simon Castillo MD [facility] CPT-91724 Level 4 Est. Patient 08:59:29 CDT Simon Castillo MD [facility] CPT-27737 Level 4 Est. Patient 10:52:51 ROADABILITY MACHINE OPERATOR Simon Castillo MD [facility] CPT-36880 Level 4 Est. Patient 11:50:30 CDT Simon Castillo MD [facility] CPT-83259 Level 4 Est. Patient 09:54:46 CDT Simon Castillo MD [facility] CPT-65172 Level 3 Est. Patient 11:10:14 CDT Simon Castillo MD [facility] CPT-74857 Level 4 Est. Patient 09:44:02 CDT Simon Castillo MD [facility] CPT-74179 Level 3 Est. Patient 09:27:48 CDT Simon Castillo MD [facility] CPT-21653 Level 3 Est. Patient 09:58:06 ROADABILITY MACHINE OPERATOR Simon Castillo MD [facility] CPT-84279 Level 3 Est. Patient 09:51:35 CDT Simon Castillo MD [facility] Procedures Code Procedure Name Date Entry Date Standard Description CPT-12982 EKG Trac and Interp - XRAY USE ONLY 12:19:18 ROADABILITY MACHINE OPERATOR 09/29 CPT-21239 Chest, 2 views 12:19:17 ROADABILITY MACHINE OPERATOR CPT-Cryo Cryotherapy 09:54:37 CDT CPT-14704 First Vx - Ix admin for Medicare patients 09:13:10 CDT CPT-99399 Fluzone High-Dose Intramuscular Suspension 09:13:10 CDT CPT-G0439 [facility] Annual Wellness Exam 09:41:17 CDT CPT-14216 Lipid - LAB USE ONLY 17:15:33 CDT CPT-02598 HGBA1C - LAB USE ONLY 17:15:33 CDT CPT-33765 CMP - LAB USE ONLY 17:15:33 CDT CPT-29488 Venipuncture Draw Fee 17:15:33 CDT CPT-TCM Transitional Care Mgmt-High 11:01:28 ROADABILITY MACHINE OPERATOR CPT-70708 First Vx - Ix admin for Medicare patients 17:33:39 CDT CPT-47112 Fluzone High-Dose Intramuscular Suspension 17:33:39 CDT CPT-G0438 Initial Annual Wellness Exam 08:57:30 CDT CPT-31316 Chest 2V Frontal and Lat - XRAY USE ONLY 09:00:14 CDT CPT-13519 Venipuncture Draw Fee 13:33:02 CDT CPT-74104 Bone Density 09:37:49 ROADABILITY MACHINE OPERATOR CPT-10705 Fluzone High Dose 17:20:42 CDT CPT-33654 Prevnar 13 17:20:42 CDT CPT-54491 Administration 2+ single or combination vaccines inc oral 17:20:42 CDT CPT-55484 Administration single or combination vaccine inc oral 17 :20:42 CDT CPT-61881 Hand comp min 3V 09:24:38 CDT CPT-73961 Venipuncture Draw Fee 08:07:29 ROADABILITY MACHINE OPERATOR CPT-66993 Venipuncture Draw Fee 09:02:51 ROADABILITY MACHINE OPERATOR CPT-94206 Venipuncture Draw Fee 12:45:08 ROADABILITY MACHINE OPERATOR CPT-28583 Venipuncture Draw Fee 09:25:31 CDT CPT-G0008 Administration of Influenza Virus Vaccine 14:41:29 CDT CPT-30696 Fluzone High-Dose Intramuscular Suspension 14:41:29 CDT CPT-Cryo Cryotherapy 11:48:20 CDT CPT-58847 EKG Trac and Interp 09:21:58 CDT CPT-89921 Chest 2V Frontal and Lat 09:21:58 CDT CPT-Cryo Cryotherapy 10:54:51 ROADABILITY MACHINE OPERATOR CPT-86112 Administration 2+ single or combination vaccines inc oral 10:42:19 CDT CPT-58118 Administration single or combination vaccine inc oral 10 :42:19 CDT CPT-32286 Pneumovax 10:42:19 CDT CPT-79217 Influenza High Dose age 65+ 10:42:19 CDT CPT-55647 Administration single or combination vaccine inc oral 13 :18:54 CDT CPT-24427 Influenza High Dose age 65+ 13:18:54 CDT CPT-89198 Venipuncture Draw Fee 11:53:16 CDT CPT-20011 LS spine comp w obliq 11:03:13 CDT CPT-Cryo Cryotherapy 08:27:16 ROADABILITY MACHINE OPERATOR CPT-91322 Administration single or combination vaccine inc oral 10 :56:34 CDT CPT-53479 Influenza High Dose age 65+ 10:56:34 CDT
--- OUTSIDE RECORDS SUMMARY | 2018-03-31 16:24 | XMS REPORT | Clinical Summary ---
Author Author Admin, E Organization [employer] Address Unknown Phone Unavailable Allergies, Adverse Reactions, [...] Simon Castillo MD Rheumatoid arthritis Steroid use, chcf V58.65 Resolved Simon Castillo MD Long-term (current) use of steroids Hand pain, bilateral 729.5 Resolved Simon Castillo MD Pain in limb Carpal tunnel syndrome, bilateral 354.0 Active Simon Csatillo MD Carpal tunnel syndrome Osteopenia 733.90 Active [...] medical examination at a health care facility DIABETES ICD-V18.0 Inactive Simon Castillo MD FH LUNG CANCER ICD-V16.1 Inactive Simon Castillo MD ABDOMINAL TENDERNESS ICD-789.60 Inactive Simon Castillo MD CHEST WALL PAIN, HX OF ICD-V15.89 Inactive Simon Castillo MD SEBORRHEIC KERATOSIS ICD-702.19 Inactive Simon Castillo MD BRONCHITIS, ACUTE ICD-466.0 Inactive Simon Castillo MD SINUSITIS, ACUTE ICD-461.9 Inactive Simon Castillo MD ABDOMINAL PAIN RIGHT LOWER QUADRANT ICD-789.03 Inactive Simon Castlilo MD SCIATICA ICD-724.3 Inactive Simon Castillo MD 2012 BENIGN PROSTATIC HYPERTROPHY, MILD, HX OF ICD-V13.89 Inactive Simon Castillo MD Obesity ICD-278.00 Inactive Simon Castillo MD 2013 Actinic keratosis ICD-702.0 Kerry Castillo MD Chest pain ICD-786.50 Inactive Simon Castillo MD Cough ICD-786.2 Inactive Simon Castillo MD Eczema ICD-692.9 Inactive Simon Castillo MD 02/27 Bronchitis, acute ICD-466.0 Kerry Castillo MD Tinea pedis ICD-110.4 Kerry Castillo MD Hand pain, bilateral ICD-729.5 Kerry Castillo MD Steroid use, buttermaker continuous churn ICD-V58.65 Kerry Castillo MD Hand pain, bilateral [...] NDC Status Provider Patient Instruction PIOGLITAZONE HCL 30 MG ORAL TABS 1 po qd PIOGLITAZONE HCL 32149584271 Active Simon Castillo MD Active GLIMEPIRIDE 4 MG ORAL TABS 1 po BID GLIMEPIRIDE 68842954497 Active Simon Castillo MD Active ASPIRIN EC 81 MG ORAL TBEC 1 po qd ASPIRIN 12950171222 Active Simon Castillo MD Active CLOTRIMAZOLE 1 % EXT CREA Apply to affected area of feet twice daily PRN Rash CLOTRIMAZOLE 81024987203 No Longer Active Simon Castillo MD Active PREDNISONE 5 MG TAB 1 po BID PREDNISONE 04371141048 Active Simon Castillo MD Active FISH OIL 1000 MG CPDR 1 po BID OMEGA-3 FATTY ACIDS 57184586020 Active Simon Castillo MD Active LISINOPRIL 10 MG TABS 1 p qd LISINOPRIL 53902413020 Active Simon Castillo MD Active CLARITIN 10 MG TAB 1 tablet by mouth daily as needed for allergies LORATADINE 17166604898 No Longer Active Simon Castillo MD Active TRIAMCINOLONE ACETONIDE 0.1 % OINT Apply to affected areas TID for up to 2 weeks TRIAMCINOLONE ACETONIDE 91978048469 No Longer Active Simon Castillo MD Active LASIX 20 MG TAB 1 tablet by mouth daily x 2 days FUROSEMIDE 99328206686 No Longer Active Simon Castillo MD Active SULFASALAZINE 500 MG ORAL TBEC 2 tabs BID SULFASALAZINE 16667718550 No Longer Active Neto Oshea DO Active PREDNISONE 20 MG TAB 2 tabs daily for 3 days, 1 tab daily for 3 days, 1/2 tab daily for 2 days PREDNISONE 88091347265 No Longer Active 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 CROZER 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 PREDNISONE 20 MG TAB 1 tablet daily for airway inflammation 02/25 PREDNISONE 07454972401 No Longer Active 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 CROZER 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 AZITHROMYCIN 250 MG TABS 2 po qd x 1 day, then 1 po qd x 4 days AZITHROMYCIN 88778749947 No Longer Active 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 CROZER 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 HYDROCODONE-ACETAMINOPHEN 5-325 MG TABS 1 tab by mouth 8 hours as needed for pain HYDROCODONE-ACETAMINOPHEN 58748128782 Active Simon Castillo MD Active TRAMADOL HCL 50 MG TABS 1 po q6hr PRN Pain TRAMADOL HCL 61143050975 No Longer Active Simon Castillo MD Active PREDNISONE 5 MG TABS 1 po qod PREDNISONE 44489635500 No Longer Active Simon Castillo MD Active SYMBICORT 160-4.5 MCG/ACT AERO 2 puff BID BUDESONIDE- FORMOTEROL FUMARATE 57916796351 No Longer Active Simon Castillo MD Active FLONASE 50 MCG/ACT SUSP 2 puffs in each nostril daily FLUTICASONE PROPIONATE 26798901562 No Longer Active Simon Castillo MD Active PREDNISONE 20 MG TAB 2 tabs daily for 5 days, then 1 daily for 5 days PREDNISONE 07793152844 No Longer Active Simon Castillo MD Active PREDNISONE 20 MG TAB 2 tabs daily for 5 days, then 1 daily for 5 days, then 0.5 for 4 days PREDNISONE 31034415561 No Longer Active Simon Castillo MD Active PREDNISONE 20 MG TAB 2 tabs daily for 3 days, 1 tab daily for 3 days, 1/2 tab daily for 2 days PREDNISONE 41890486967 No Longer Active Simon Castillo MD Active AZITHROMYCIN 250 MG TABS 2 po qd x 1 day, then 1 po qd x 4 days AZITHROMYCIN 90208235715 No Longer Active Simon Castillo MD Active CARVEDILOL 6.25 MG TABS 1 po BID CARVEDILOL 02750697158 Active Simon Castillo MD Active LISINOPRIL-HYDROCHLOROTHIAZIDE 20-12.5 MG TABS 1/2 tab by mouth daily LISINOPRIL-HYDROCHLOROTHIAZIDE 98384895506 No Longer Active Simon Castillo MD Active TRAMADOL HCL 50 MG TABS 1-2 tablets every 6 hours as needed for pain TRAMADOL HCL 18230387849 Active Giles Tatum APRN Active PREDNISONE 5 MG TAB Take one po qod PREDNISONE 77201902531 No Longer Active Simon Castillo MD Active GLYBURIDE 5 MG TAB Take one by mouth daily GLYBURIDE 57653442976 No Longer Active Simon Castillo MD Active LEVAQUIN 750 MG TABS 1 po qod x 5 doses LEVOFLOXACIN 58633766864 No Longer Active Simon Castillo MD Active CETIRIZINE HCL 10 MG TABS 1 po qd as needed for allergies CETIRIZINE HCL 48205619493 No Longer Active Simon Castillo MD Active BILBERRY CAPS 1 tab daily BILBERRY (VACCINIUM MYRTILLUS) CAPS 00151084934 Active Simon Castillo MD Active ATENOLOL 50 MG TABS Take one by mouth daily ATENOLOL 95676066511 No Longer Active Simon Castillo MD Active FLONASE 50 MCG/ACT SUSP 2 puffs in each nostril daily FLUTICASONE PROPIONATE 77952494137 No Longer Active Simon Castillo MD Active GLYBURIDE 5 MG TAB Take one by mouth daily GLYBURIDE 22678669293 No Longer Active Simon Castillo MD Active SYMBICORT 80-4.5 MCG/ACT AERO 2 puffs twice a day BUDESONIDE-FORMOTEROL FUMARATE 36102491761 No Longer Active Simon Castillo MD Active PREDNISONE 20 MG TAB 2 tabs daily for 4 days, 1 tab daily for 4 days, 1/2 tab daily for 4 days PREDNISONE 80069154631 No Longer Active Simon Castillo MD Active AMOXICILLIN 500 MG CAPS 2 po BID x 10 days AMOXICILLIN 76930776175 No Longer Active Simon Castillo MD Active METFORMIN HCL 1000 MG TABS 1 by mounth twice a day METFORMIN HCL 39534852660 No Longer Active Simon Castillo MD Active LUTEIN-ZEAXANTHIN 6-1 MG TABS Take 2 by mouth daily LUTEIN-ZEAXANTHIN 65363730731 Active Simon Castillo MD Active IBUPROFEN 800 MG TABS Take 1 tab every 6 hrs prn IBUPROFEN 70024743569 No Longer Active Simon Castillo MD Active GLYBURIDE 2.5 MG TABS Take one by mouth daily GLYBURIDE 70703656172 No Longer Active Simon Castillo MD Active LANCETS MISC 2 qd LANCETS 77503177046 Active Pamela Conde Active ACACIA CONTOUR TEST STRP Use with testing twice daily GLUCOSE BLOOD 81419536160 Active Simon Castillo MD Active GLYBURIDE 2.5 MG TABS Take one by mouth daily GLYBURIDE 2.5 MG TABS 531543 GLYBURIDE Inactive PREDNISONE 20 MG TAB 2 tabs daily for 4 days, 1 tab daily for 4 days, 1/2 tab daily for 4 days PREDNISONE 20 MG TAB 147502 PREDNISONE Inactive SYMBICORT 80-4.5 MCG/ACT AERO 2 puffs twice a day SYMBICORT 80-4.5 MCG/ACT AERO BUDESONIDE-FORMOTEROL FUMARATE Inactive FLONASE 50 MCG/ACT SUSP 2 puffs in each nostril daily FLONASE 50 MCG/ACT SUSP 9342092 FLUTICASONE PROPIONATE Inactive ATENOLOL 50 MG TABS Take one by mouth daily ATENOLOL 50 MG TABS 486829 ATENOLOL Inactive CETIRIZINE HCL 10 MG TABS 1 po qd as needed for allergies CETIRIZINE HCL 10 MG TABS 5887825 CETIRIZINE HCL Inactive LEVAQUIN 750 MG TABS 1 po qod x 5 doses LEVAQUIN 750 MG TABS 848993 LEVOFLOXACIN Inactive GLYBURIDE 5 MG TAB Take one by mouth daily GLYBURIDE 5 MG TAB 916035 GLYBURIDE Inactive PREDNISONE 5 MG TAB Take one po qod PREDNISONE 5 MG TAB 632565 PREDNISONE Inactive PREDNISONE 20 MG TAB 2 tabs daily for 5 days, then 1 daily for 5 days PREDNISONE 20 MG TAB 101828 PREDNISONE Inactive FLONASE 50 MCG/ACT SUSP 2 puffs in each nostril daily FLONASE 50 MCG/ACT SUSP 1193838 FLUTICASONE PROPIONATE Inactive SYMBICORT 160-4.5 MCG/ACT AERO 2 puff BID SYMBICORT 160-4.5 MCG/ACT AERO BUDESONIDE-FORMOTEROL FUMARATE Inactive PREDNISONE 5 MG TABS 1 po qod PREDNISONE 5 MG TABS 247677 PREDNISONE Inactive PREDNISONE 20 MG TAB 1 tablet daily for airway inflammation 02/25 PREDNISONE 20 MG TAB 660325 PREDNISONE Inactive SULFASALAZINE 500 MG ORAL TBEC 2 tabs BID SULFASALAZINE 500 MG ORAL TBEC 342265 SULFASALAZINE Inactive LASIX 20 MG TAB 1 tablet by mouth daily x 2 days LASIX 20 MG TAB 480587 FUROSEMIDE Inactive CLARITIN 10 MG TAB 1 tablet by mouth daily as needed for allergies CLARITIN 10 MG TAB 884324 LORATADINE Inactive CLOTRIMAZOLE 1 % EXT CREA Apply to affected area of feet twice daily PRN Rash CLOTRIMAZOLE 1 % EXT CREA 194320 CLOTRIMAZOLE Inactive AMOXICILLIN 500 MG CAPS 2 po BID x 10 days AMOXICILLIN 500 MG CAPS 422571 AMOXICILLIN Inactive GLYBURIDE 5 MG TAB Take one by mouth daily GLYBURIDE 5 MG TAB 000845 GLYBURIDE Inactive AZITHROMYCIN 250 MG TABS 2 po qd x 1 day, then 1 po qd x 4 days AZITHROMYCIN 250 MG TABS 8357587 AZITHROMYCIN Inactive PREDNISONE 20 MG TAB 2 tabs daily for 3 days, 1 tab daily for 3 days, 1/2 tab daily for 2 days PREDNISONE 20 MG TAB 493158 PREDNISONE Inactive PREDNISONE 20 MG TAB 2 tabs daily for 5 days, then 1 daily for 5 days, then 0.5 for 4 days PREDNISONE 20 MG TAB 979986 PREDNISONE Inactive AZITHROMYCIN 250 MG TABS 2 po qd x 1 day, then 1 po qd x 4 days AZITHROMYCIN 250 MG TABS 0864010 AZITHROMYCIN Inactive PREDNISONE 20 MG TAB 2 tabs daily for 3 days, 1 tab daily for 3 days, 1/2 tab daily for 2 days PREDNISONE 20 MG TAB 623718 PREDNISONE Inactive TRIAMCINOLONE ACETONIDE 0.1 % OINT Apply to affected areas TID for up to 2 weeks TRIAMCINOLONE ACETONIDE 0.1 % OINT 8580949 TRIAMCINOLONE ACETONIDE Inactive Immunizations Vaccine Administration Date [...] Name Value Unit Range Description Lab Report: CBC, HGBA1C - Chemistry hemoglobin [...] count 238 10^3/MM^3 10*3/mm3 142-424 Lab Report: Lipid Panel, HGBA1C, Comp. Metabolic Panel - Chemistry cholesterol, serum 126 mg/dL 097-655 2050/02/07 triglyceride, serum, fasting 83 mg/dL 30-200 HDL cholesterol, serum 70 mg/dL 32-96 LDL cholesterol, serum 39 mg/dL 0-130 hemoglobin A1C, blood, as % of total hemoglobin 8.3 % 4.3-6.0 sodium, serum 141 mmol/L 088-950 8705/02/07 carbon dioxide, venous blood 26.0 mmol/L 21.0-32.0 [...] 0.00-1.00 Encounters Code Encounter Date Provider Facility CPT-90214 Level 4 Est. Patient 09:54:08 CDT Simon Csatillo MD [facility] CPT-50949 Level 4 Est. Patient 16:11:23 CDT Simon Castillo MD [facility] CPT-02438 Level 4 Est. Patient 09:29:28 BEHAVIOR CLINICIAN Simon Castillo MD [facility] CPT-23320 Level 3 Est. Patient 09:18:25 CDT Simon Castillo MD [facility] CPT-78201 Level 4 Est. Patient 11:51:23 CDT Simon Castillo MD [facility] CPT-95189 Level 4 Est. Patient 14:32:04 CDT Neto Oshea DO [facility] CPT-39922 Level 3 Est. Patient 08:41:43 CDT Giles Tatum [facility] CPT-09452 Level 3 Est. Patient 08:40:53 CDT Giles Salcidol [facility] CPT-91101 Level 3 Est. Patient 08:36:52 CDT Giles Salcidol [facility] CPT-90144 Level 3 Est. Patient 09:08:44 CDT Giles Salcidol [facility] CPT-97384 Level 4 Est. Patient 09:17:32 BEHAVIOR CLINICIAN Simon Castillo MD [facility] CPT-48408 Level 3 Est. Patient 11:22:22 BEHAVIOR CLINICIAN Simon Castillo MD [facility] CPT-36018 Level 3 Est. Patient 09:02:14 CDT Simon Castillo MD [facility] CPT-58112 Level 4 Est. Patient 08:47:25 CDT Simon Castillo MD [facility] CPT-63329 Level 4 Est. Patient 10:17:25 CDT Simon Castillo MD [facility] CPT-31708 Level 4 Est. Patient 10:10:09 BEHAVIOR CLINICIAN Simon Castillo MD [facility] CPT-53058 Level 4 Est. Patient 11:48:19 CDT Simon Castillo MD [facility] CPT-24707 Level 4 Est. Patient 08:59:29 CDT Simon Castillo MD [facility] CPT-43241 Level 4 Est. Patient 10:52:51 BEHAVIOR CLINICIAN Simon Castillo MD [facility] CPT-70854 Level 4 Est. Patient 11:50:30 CDT Simon Castillo MD [facility] CPT-98830 Level 4 Est. Patient 09:54:46 CDT Simon Castillo MD [facility] CPT-68174 Level 3 Est. Patient 11:10:14 CDT Simon Castillo MD [facility] CPT-37863 Level 4 Est. Patient 09:44:02 CDT Simon Castillo MD [facility] CPT-51498 Level 3 Est. Patient 09:27:48 CDT Simon Castillo MD [facility] CPT-79206 Level 3 Est. Patient 09:58:06 BEHAVIOR CLINICIAN Simon Castillo MD [facility] CPT-14010 Level 3 Est. Patient 09:51:35 CDT Simon Castillo MD [facility] Procedures Code Procedure Name Date Entry Date Standard Description CPT-G0439 Subsequent Annual Wellness Exam 09:41:17 CDT CPT-57612 Lipid - LAB USE ONLY 17:15:33 CDT CPT-10789 HGBA1C - LAB USE ONLY 17:15:33 CDT CPT-21927 CMP - LAB USE ONLY 17:15:33 CDT CPT-88098 Venipuncture Draw Fee 17:15:33 CDT CPT-[facility] Transitional Care Mgmt-High 11:01:28 BEHAVIOR CLINICIAN CPT-81216 First Vx - Ix admin for Medicare patients 17:33:39 CDT CPT-92110 Fluzone High-Dose Intramuscular Suspension 17:33:39 CDT CPT-G0438 Initial Annual Wellness Exam 08:57:30 CDT CPT-76088 Chest 2V Frontal and Lat - XRAY USE ONLY 09:00:14 CDT CPT-83667 Venipuncture Draw Fee 13:33:02 CDT CPT-48520 Bone Density 09:37:49 BEHAVIOR CLINICIAN CPT-24678 Fluzone High Dose 17:20:42 CDT CPT-08437 Prevnar 13 17:20:42 CDT CPT-64994 Administration 2+ single or combination vaccines inc oral 17:20:42 CDT CPT-08191 Administration single or combination vaccine inc oral 17 :20:42 CDT CPT-50000 Hand comp min 3V 09:24:38 CDT CPT-10672 Venipuncture Draw Fee 08:07:29 BEHAVIOR CLINICIAN CPT-05174 Venipuncture Draw Fee 09:02:51 BEHAVIOR CLINICIAN CPT-17397 Venipuncture Draw Fee 12:45:08 BEHAVIOR CLINICIAN CPT-21935 Venipuncture Draw Fee 09:25:31 CDT CPT-G0008 Administration of Influenza Virus Vaccine 14:41:29 CDT CPT-89635 Fluzone High-Dose Intramuscular Suspension 14:41:29 CDT CPT-Cryo Cryotherapy 11:48:20 CDT CPT-64398 EKG Trac and Interp 09:21:58 CDT CPT-97612 Chest 2V Frontal and Lat 09:21:58 CDT CPT-Cryo Cryotherapy 10:54:51 BEHAVIOR CLINICIAN CPT-74540 Administration 2+ single or combination vaccines inc oral 10:42:19 CDT CPT-39178 Administration single or combination vaccine inc oral 10 :42:19 CDT CPT-59087 Pneumovax 10:42:19 CDT CPT-29811 Influenza High Dose age 65+ 10:42:19 CDT CPT-39979 Administration single or combination vaccine inc oral 13 :18:54 CDT CPT-57098 Influenza High Dose age 65+ 13:18:54 CDT CPT-94275 Venipuncture Draw Fee 11:53:16 CDT CPT-42717 LS spine comp w obliq 11:03:13 CDT CPT-Cryo Cryotherapy 08:27:16 BEHAVIOR CLINICIAN CPT-25373 Administration single or combination vaccine inc oral 10 :56:34 CDT CPT-28150 Influenza High Dose age 65+ 10:56:34 CDT
--- OUTSIDE RECORDS SUMMARY | 2018-03-31 16:25 | XMS REPORT | Clinical Summary ---
Author Author Admin, E Organization [facility] Address Unknown Phone Unavailable Allergies, Adverse Reactions, Alerts Allergy Name Reaction Description Start Date Severity Status Provider No Known Allergies [facility] Conditions or Problems Problem Name Problem Code [...] unspecified CHRONIC KIDNEY DISEASE UNSPECIFIED 585.9 Inactive Simno Castillo MD Chronic kidney disease, unspecified Chronic [...] Castillo MD Rheumatoid arthritis Steroid use, manager terminal V58.65 Resolved Simon Castillo MD Long-term (current) use of steroids Hand pain, bilateral 729.5 Resolved Simon Castillo MD Pain in limb Carpal tunnel syndrome, bilateral 354.0 Active Simon Castillo MD Carpal tunnel syndrome Osteopenia 733.90 Active Simno Castillo MD Disorder of bone and cartilage, 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 Rosy Eddy RMA Rheumatoid arthritis Pharyngitis 462 Active 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 [employer] Acute pharyngitis Dyspnea 786.09 Active 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 [employer] Other dyspnea and respiratory abnormality Peripheral edema 782.3 Active 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 [employer] Edema 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 Simon Castillo [...] ICD-729.5 Inactive Simon Castillo MD Steroid use, manager terminal ICD-V58.65 Inactive Simon Castillo MD Hand pain, bilateral ICD-729.5 Kerry Castillo MD Medication List Medication Instructions Start Date Stop Date Generic Name NDC Status Provider Patient Instruction TRIAMCINOLONE ACETONIDE 0.1 % OINT Apply to affected areas TID for up to 2 weeks TRIAMCINOLONE ACETONIDE 96396704773 No Longer Active Simon Castillo MD Active LASIX 20 MG TAB 1 tablet by mouth daily x 2 days FUROSEMIDE 09818638767 No Longer Active Simon Castillo MD Active SULFASALAZINE 500 MG ORAL TBEC 2 tabs BID SULFASALAZINE 54989898990 No Longer Active Neto Oshea DO Active PREDNISONE 20 MG TAB 2 tabs daily for 3 days, 1 tab daily for 3 days, 1/2 tab daily for 2 days PREDNISONE 74341034264 No Longer Active Jillina Frazelalejandrina HEMPHILL Active PREDNISONE 20 MG TAB 1 tablet daily for airway inflammation 02/25 PREDNISONE 64437090560 No Longer Active 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 [employer] Active CLARITIN 10 MG TAB 1 tablet by mouth daily as needed for allergies LORATADINE 30220662044 Active Jillina Lolyl [employer] Active AZITHROMYCIN 250 MG TABS 2 po qd x 1 day, then 1 po qd x 4 days AZITHROMYCIN 84677854959 No Longer Active 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 [employer] Active GLIMEPIRIDE 2 MG ORAL TABS 1 po q a.m. GLIMEPIRIDE 81003876625 Active Simon Castillo MD Active HYDROCODONE-ACETAMINOPHEN 5-325 MG TABS 1 tab by mouth 8 hours as needed for pain HYDROCODONE-ACETAMINOPHEN 39822332648 Active Simon Catsillo MD Active TRAMADOL HCL 50 MG TABS 1 po q6hr PRN Pain TRAMADOL HCL 14668907575 No Longer Active Simon Castillo MD Active PREDNISONE 5 MG TAB 1-2 tabs daily for rheumatoid arthritis PREDNISONE 11168719740 Active Simon Castillo MD Active PREDNISONE 5 MG TABS 1 po qod PREDNISONE 14286152010 No Longer Active Simon Castillo MD Active SYMBICORT 160-4.5 MCG/ACT AERO 2 puff BID BUDESONIDE- FORMOTEROL FUMARATE 96249204600 No Longer Active Simon Castillo MD Active FLONASE 50 MCG/ACT SUSP 2 puffs in each nostril daily FLUTICASONE PROPIONATE 18260529914 No Longer Active Simon Castillo MD Active PREDNISONE 20 MG TAB 2 tabs daily for 5 days, then 1 daily for 5 days PREDNISONE 30078598252 No Longer Active Simon Castillo MD Active PREDNISONE 20 MG TAB 2 tabs daily for 5 days, then 1 daily for 5 days, then 0.5 for 4 days PREDNISONE 14656909223 No Longer Active Simon Castillo MD Active CLOTRIMAZOLE 1 % EXT CREA Apply to affected area of feet twice daily PRN Rash CLOTRIMAZOLE 78251837991 Active Simon Castillo MD Active PREDNISONE 20 MG TAB 2 tabs daily for 3 days, 1 tab daily for 3 days, 1/2 tab daily for 2 days PREDNISONE 37146640464 No Longer Active Simon Castillo MD Active AZITHROMYCIN 250 MG TABS 2 po qd x 1 day, then 1 po qd x 4 days AZITHROMYCIN 45970682765 No Longer Active Simon Castillo MD Active LISINOPRIL 10 MG TABS 1 tablet by mouth daily LISINOPRIL 91627946744 Active Simon Castillo MD Active CARVEDILOL 6.25 MG TABS 1 po BID CARVEDILOL 14485822788 Active Simon Castillo MD Active LISINOPRIL-HYDROCHLOROTHIAZIDE 20-12.5 MG TABS 1/2 tab by mouth daily LISINOPRIL-HYDROCHLOROTHIAZIDE 39749781970 No Longer Active Simon Castillo MD Active TRAMADOL HCL 50 MG TABS 1-2 tablets every 6 hours as needed for pain TRAMADOL HCL 26231963171 Active Giles Tatum APRN Active PREDNISONE 5 MG TAB Take one po qod PREDNISONE 27655099518 No Longer Active Simon Castillo MD Active GLYBURIDE 5 MG TAB Take one by mouth daily GLYBURIDE 71503258812 No Longer Active Simon Castillo MD Active LEVAQUIN 750 MG TABS 1 po qod x 5 doses LEVOFLOXACIN 00213907370 No Longer Active Simon Castillo MD Active CETIRIZINE HCL 10 MG TABS 1 po qd as needed for allergies CETIRIZINE HCL 25242133740 No Longer Active Simon Castillo MD Active FISH OIL 1000 MG CPDR 1 pill by mouth twice daily for cholesterol OMEGA -3 FATTY ACIDS 68820888536 Active Simon Castillo MD Active BILBERRY CAPS 1 tab daily BILBERRY (VACCINIUM MYRTILLUS) CAPS 31756997840 Active Simon Castillo MD Active ATENOLOL 50 MG TABS Take one by mouth daily ATENOLOL 09912015391 No Longer Active Simon Castillo MD Active FLONASE 50 MCG/ACT SUSP 2 puffs in each nostril daily FLUTICASONE PROPIONATE 12845046964 No Longer Active Simon Castillo MD Active GLYBURIDE 5 MG TAB Take one by mouth daily GLYBURIDE 83942637460 No Longer Active Simon Castillo MD Active SYMBICORT 80-4.5 MCG/ACT AERO 2 puffs twice a day BUDESONIDE-FORMOTEROL FUMARATE 71676206537 No Longer Active Simon Castillo MD Active PREDNISONE 20 MG TAB 2 tabs daily for 4 days, 1 tab daily for 4 days, 1/2 tab daily for 4 days PREDNISONE 79647870593 No Longer Active Simon Castillo MD Active AMOXICILLIN 500 MG CAPS 2 po BID x 10 days AMOXICILLIN 75305181164 No Longer Active Simon Castillo MD Active METFORMIN HCL 1000 MG TABS 1 by mounth twice a day METFORMIN HCL 12510000004 No Longer Active Simon Castillo MD Active LUTEIN-ZEAXANTHIN 6-1 MG TABS Take 2 by mouth daily LUTEIN-ZEAXANTHIN 30609092473 Active Simon Castillo MD Active IBUPROFEN 800 MG TABS Take 1 tab every 6 hrs prn IBUPROFEN 16115321545 No Longer Active Simon Castillo MD Active GLYBURIDE 2.5 MG TABS Take one by mouth daily GLYBURIDE 35102482464 No Longer Active Simon Castillo MD Active LANCETS MISC 2 qd LANCETS 20492339153 Active Pamela Conde Active ACACIA CONTOUR TEST STRP Use with testing twice daily GLUCOSE BLOOD 92525086323 Active Simon Castillo MD Active ACACIA ASPIRIN 325 MG TABS Take one by mouth daily ASPIRIN 07108843819 Active Pamela Conde Active GLYBURIDE 2.5 MG TABS Take one by mouth daily GLYBURIDE 2.5 MG TABS 513407 GLYBURIDE Inactive PREDNISONE 20 MG TAB 2 tabs daily for 4 days, 1 tab daily for 4 days, 1/2 tab daily for 4 days PREDNISONE 20 MG TAB 032449 PREDNISONE Inactive SYMBICORT 80-4.5 MCG/ACT AERO 2 puffs twice a day SYMBICORT 80-4.5 MCG/ACT AERO BUDESONIDE-FORMOTEROL FUMARATE Inactive FLONASE 50 MCG/ACT SUSP 2 puffs in each nostril daily FLONASE 50 MCG/ACT SUSP FLUTICASONE PROPIONATE Inactive ATENOLOL 50 MG TABS Take one by mouth daily ATENOLOL 50 MG TABS 865629 ATENOLOL Inactive CETIRIZINE HCL 10 MG TABS 1 po qd as needed for allergies CETIRIZINE HCL 10 MG TABS 9281384 CETIRIZINE HCL Inactive LEVAQUIN 750 MG TABS 1 po qod x 5 doses LEVAQUIN 750 MG TABS 885371 LEVOFLOXACIN Inactive GLYBURIDE 5 MG TAB Take one by mouth daily GLYBURIDE 5 MG TAB 071851 GLYBURIDE Inactive PREDNISONE 5 MG TAB Take one po qod PREDNISONE 5 MG TAB 368033 PREDNISONE Inactive PREDNISONE 20 MG TAB 2 tabs daily for 5 days, then 1 daily for 5 days PREDNISONE 20 MG TAB 571466 PREDNISONE Inactive FLONASE 50 MCG/ACT SUSP 2 puffs in each nostril daily FLONASE 50 MCG/ACT SUSP FLUTICASONE PROPIONATE Inactive SYMBICORT 160-4.5 MCG/ACT AERO 2 puff BID SYMBICORT 160-4.5 MCG/ACT AERO BUDESONIDE-FORMOTEROL FUMARATE Inactive PREDNISONE 5 MG TABS 1 po qod PREDNISONE 5 MG TABS 582999 PREDNISONE Inactive PREDNISONE 20 MG TAB 1 tablet daily for airway inflammation 02/25 PREDNISONE 20 MG TAB 600070 PREDNISONE Inactive SULFASALAZINE 500 MG ORAL TBEC 2 tabs BID SULFASALAZINE 500 MG ORAL TBEC 017662 SULFASALAZINE Inactive LASIX 20 MG TAB 1 tablet by mouth daily x 2 days LASIX 20 MG TAB 571384 FUROSEMIDE Inactive AMOXICILLIN 500 MG CAPS 2 po BID x 10 days AMOXICILLIN 500 MG CAPS 426111 AMOXICILLIN Inactive GLYBURIDE 5 MG TAB Take one by mouth daily GLYBURIDE 5 MG TAB 983241 GLYBURIDE Inactive AZITHROMYCIN 250 MG TABS 2 po qd x 1 day, then 1 po qd x 4 days AZITHROMYCIN 250 MG TABS 6495051 AZITHROMYCIN Inactive PREDNISONE 20 MG TAB 2 tabs daily for 3 days, 1 tab daily for 3 days, 1/2 tab daily for 2 days PREDNISONE 20 MG TAB 675148 PREDNISONE Inactive PREDNISONE 20 MG TAB 2 tabs daily for 5 days, then 1 daily for 5 days, then 0.5 for 4 days PREDNISONE 20 MG TAB 892944 PREDNISONE Inactive AZITHROMYCIN 250 MG TABS 2 po qd x 1 day, then 1 po qd x 4 days AZITHROMYCIN 250 MG TABS 1898194 AZITHROMYCIN Inactive PREDNISONE 20 MG TAB 2 tabs daily for 3 days, 1 tab daily for 3 days, 1/2 tab daily for 2 days PREDNISONE 20 MG TAB 018801 PREDNISONE Inactive TRIAMCINOLONE ACETONIDE 0.1 % OINT Apply to affected areas TID for up to 2 weeks TRIAMCINOLONE ACETONIDE 0.1 % OINT 6759447 TRIAMCINOLONE ACETONIDE Inactive Immunizations Vaccine Administration Date [...] pressure, diastolic - 8462-4 71 mm[Hg] BP castlilo blood pressure, systolic - 8480-6 138 mm[Hg] [...] Panel - Chemistry sodium, serum 137 mmol/L 294-438 0673/06/06 carbon dioxide, venous blood 24.9 mmol/L 21.0-32.0 [...] Panel - Chemistry sodium, serum 139 mmol/L 816-268 8073/03/17 carbon dioxide, venous blood 29.0 mmol/L 21.0-32.0 [...] 8.5 % 4.3-6.0 sodium, serum 137 mmol/L 497-059 5501/02/12 potassium, serum 5.1 mmol/L 3.5-5.2 chloride, serum 103 mmol/L 98-107 carbon dioxide, venous blood 24.4 mmol/L 21.0-32.0 blood glucose 261 mg/dL 65-110 calcium, serum 9.0 mg/dL 8.5-10.1 urea nitrogen, blood 44 mg/dL 7-18 creatinine, serum 2.37 mg/dL 0.55-1.30 Lab Report: Lipid Panel, HGBA1C, Comp. Metabolic Panel - Chemistry cholesterol, serum 126 mg/dL 001-935 9589/02/07 triglyceride, serum, fasting 83 mg/dL 30-200 HDL cholesterol, serum 70 mg/dL 32-96 LDL cholesterol, serum 39 mg/dL 0-130 hemoglobin A1C, blood, as % of total hemoglobin 8.3 % 4.3-6.0 sodium, serum 141 mmol/L 638-492 9917/02/07 carbon dioxide, venous blood 26.0 mmol/L 21.0-32.0 [...] 2.6-7.2 Encounters Code Encounter Date Provider Facility CPT-44841 Level 3 Est. Patient 09:18:25 CDT Simon Csatillo MD [facility] CPT-92410 Level 4 Est. Patient 11:51:23 CDT Simon Castillo MD [facility] CPT-84370 Level 4 Est. Patient 14:32:04 CDT Neto Oshea DO [facility] CPT-73570 Level 3 Est. Patient 08:41:43 CDT Giles Tatum [facility] CPT-08936 Level 3 Est. Patient 08:40:53 CDT Giles Salcidol [facility] CPT-77569 Level 3 Est. Patient 08:36:52 CDT Giles Tatum [facility] CPT-90377 Level 3 Est. Patient 09:08:44 CDT Giles Tatum [facility] CPT-14094 Level 4 Est. Patient 09:17:32 [employer]INGLE [employer]FORMER Simon Castillo MD [facility] CPT-28786 Level 3 Est. 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 Patient 09:02:14 CDT Simon Castillo MD [facility] CPT-65241 Level 4 Est. Patient 08:47:25 CDT Simon Castillo MD [facility] CPT-45205 Level 4 Est. Patient 10:17:25 CDT Simon Castillo MD [facility] CPT-29308 Level 4 Est. Patient 10:10:09 SINGLE [employer]FORMER Simon Castillo MD [facility] CPT-73595 Level 4 Est. Patient 11:48:19 CDT Simon Castillo MD [facility] CPT-40863 Level 4 Est. Patient 08:59:29 CDT Simon Castillo MD [facility] CPT-17258 Level 4 Est. Patient 10:52:51 SINGLE [employer]FORMER Simon Castillo MD [facility] CPT-64704 Level 4 Est. Patient 11:50:30 CDT Simon Castillo MD [facility] CPT-69976 Level 4 Est. Patient 09:54:46 CDT Simon Castillo MD [facility] CPT-21684 Level 3 Est. Patient 11:10:14 CDT Simon Castillo MD [facility] CPT-49072 Level 4 Est. Patient 09:44:02 CDT Simon Castillo MD [facility] CPT-98777 Level 3 Est. Patient 09:27:48 CDT Simon Castillo MD [facility] CPT-53395 Level 3 Est. Patient 09:58:06 SING[employer]FORMER Simon Castillo MD [facility] CPT-53167 Level 3 Est. Patient 09:51:35 CDT Simon Castillo MD [facility] Procedures Code Procedure Name Date Entry Date Standard Description CPT-13047 First Vx - Ix admin for Medicare patients 17:33:39 CDT CPT-01179 Fluzone High-Dose Intramuscular Suspension 17:33:39 CDT CPT-G0438 Initial Annual Wellness Exam 08:57:30 CDT CPT-45559 Chest 2V Frontal and Lat - XRAY USE ONLY 09:00:14 CDT CPT-43703 Venipuncture Draw Fee 13:33:02 CDT CPT-05748 Bone Density 09:37:49 [employer]ER CPT-30845 Fluzone High Dose 17:20:42 CDT CPT-44794 Prevnar 13 17:20:42 CDT CPT-03057 Administration 2+ single or combination vaccines inc oral 17:20:42 CDT CPT-77865 Administration single or combination vaccine inc oral 17 :20:42 CDT CPT-51225 Hand comp min 3V 09:24:38 CDT CPT-33641 Venipuncture Draw Fee 08:07:29 [employer] CPT-36135 Venipuncture Draw Fee 09:02:51 [employer]ER CPT-09359 Venipuncture Draw Fee 12:45:08 [employer]ER CPT-06389 Venipuncture Draw Fee 09:25:31 CDT CPT-G0008 Administration of Influenza Virus Vaccine 14:41:29 CDT CPT-15775 Fluzone High-Dose Intramuscular Suspension 14:41:29 CDT CPT-Cryo Cryotherapy 11:48:20 CDT CPT-04264 EKG Trac and Interp 09:21:58 CDT CPT-98720 Chest 2V Frontal and Lat 09:21:58 CDT CPT-Cryo Cryotherapy 10:54:51 [employer]ER CPT-94586 Administration 2+ single or combination vaccines inc oral 10:42:19 CDT CPT-90762 Administration single or combination vaccine inc oral 10 :42:19 CDT CPT-36406 Pneumovax 10:42:19 CDT CPT-50284 Influenza High Dose age 65+ 10:42:19 CDT CPT-49924 Administration single or combination vaccine inc oral 13 :18:54 CDT CPT-94254 Influenza High Dose age 65+ 13:18:54 CDT CPT-12665 Venipuncture Draw Fee 11:53:16 CDT CPT-22114 LS spine comp w obliq 11:03:13 CDT CPT-Cryo Cryotherapy 08:27:16 [employer] CPT-77802 Administration single or combination vaccine inc oral 10 :56:34 CDT CPT-09780 Influenza High Dose age 65+ 10:56:34 CDT
--- OUTSIDE RECORDS SUMMARY | 2018-03-31 16:26 | XMS REPORT | Clinical Summary ---
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 Kerry Castillo MD Pharyngitis ICD-462 Kerry Castillo MD Dyspnea ICD-786.09 Kerry Castillo MD 2016 Peripheral edema ICD-782.3 Inactive Simon Castillo MD Pneumonia, right lower lobe ICD-486 Inactive Simon Castillo MD Medication List Medication Instructions Start Date Stop Date Generic Name NDC Status Provider Patient Instruction PIOGLITAZONE HCL 30 MG ORAL TABS 1 po qd PIOGLITAZONE HCL 66600893986 Active Simon Castillo MD Active GLIMEPIRIDE 4 MG ORAL TABS 1 po BID GLIMEPIRIDE 62235954598 Active Simon Castillo MD Active ASPIRIN EC 81 MG ORAL TBEC 1 po qd ASPIRIN 25145459239 Active Simon Castillo MD Active CLOTRIMAZOLE 1 % EXT CREA Apply to affected area of feet twice daily PRN Rash CLOTRIMAZOLE 77586223015 No Longer Active Simon Castillo MD Active PREDNISONE 5 MG TAB 1 po BID PREDNISONE 65949117928 Active Simon Castillo MD Active FISH OIL 1000 MG CPDR 1 po BID OMEGA-3 FATTY ACIDS 42369566598 Active Simon Castillo MD Active LISINOPRIL 10 MG TABS 1 p qd LISINOPRIL 38569911557 Active Simon Castillo MD Active CLARITIN 10 MG TAB 1 tablet by mouth daily as needed for allergies LORATADINE 42950934121 No Longer Active Simon Castillo MD Active TRIAMCINOLONE ACETONIDE 0.1 % OINT Apply to affected areas TID for up to 2 weeks TRIAMCINOLONE ACETONIDE 76189152416 No Longer Active Simon Castillo MD Active LASIX 20 MG TAB 1 tablet by mouth daily x 2 days FUROSEMIDE 88247545413 No Longer Active Simon Castillo MD Active SULFASALAZINE 500 MG ORAL TBEC 2 tabs BID SULFASALAZINE 06804995268 No Longer Active Neto Oshea DO Active PREDNISONE 20 MG TAB 2 tabs daily for 3 days, 1 tab daily for 3 days, 1/2 tab daily for 2 days PREDNISONE 52268717954 No Longer Active Giles Salcidol THEATRICAL VARIETY AGENT Active PREDNISONE 20 MG TAB 1 tablet daily for airway inflammation 02/25 PREDNISONE 68470863602 No Longer Active 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 THEATRICAL VARIETY AGENT Active AZITHROMYCIN 250 MG TABS 2 po qd x 1 day, then 1 po qd x 4 days AZITHROMYCIN 53707578665 No Longer Active 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 THEATRICAL VARIETY AGENT Active HYDROCODONE-ACETAMINOPHEN 5-325 MG TABS 1 tab by mouth 8 hours as needed for pain HYDROCODONE-ACETAMINOPHEN 76784138872 Active Simon Castillo MD Active TRAMADOL HCL 50 MG TABS 1 po q6hr PRN Pain TRAMADOL HCL 83974121651 No Longer Active Simon Castillo MD Active PREDNISONE 5 MG TABS 1 po qod PREDNISONE 64209964977 No Longer Active Simon Castillo MD Active SYMBICORT 160-4.5 MCG/ACT AERO 2 puff BID BUDESONIDE- FORMOTEROL FUMARATE 43986824436 No Longer Active Simon Castillo MD Active FLONASE 50 MCG/ACT SUSP 2 puffs in each nostril daily FLUTICASONE PROPIONATE 76494640555 No Longer Active Simon Castillo MD Active PREDNISONE 20 MG TAB 2 tabs daily for 5 days, then 1 daily for 5 days PREDNISONE 05236385938 No Longer Active Simon Castillo MD Active PREDNISONE 20 MG TAB 2 tabs daily for 5 days, then 1 daily for 5 days, then 0.5 for 4 days PREDNISONE 51285188148 No Longer Active Simon Castillo MD Active PREDNISONE 20 MG TAB 2 tabs daily for 3 days, 1 tab daily for 3 days, 1/2 tab daily for 2 days PREDNISONE 55542772746 No Longer Active Simon Castillo MD Active AZITHROMYCIN 250 MG TABS 2 po qd x 1 day, then 1 po qd x 4 days AZITHROMYCIN 02173875306 No Longer Active Simon Castillo MD Active CARVEDILOL 6.25 MG TABS 1 po BID CARVEDILOL 41560337396 Active Simon Castillo MD Active LISINOPRIL-HYDROCHLOROTHIAZIDE 20-12.5 MG TABS 1/2 tab by mouth daily LISINOPRIL-HYDROCHLOROTHIAZIDE 48779262042 No Longer Active Simon Castillo MD Active TRAMADOL HCL 50 MG TABS 1-2 tablets every 6 hours as needed for pain TRAMADOL HCL 06324713115 Active Giles Tatum APRN Active PREDNISONE 5 MG TAB Take one po qod PREDNISONE 66074196535 No Longer Active Simon Castillo MD Active GLYBURIDE 5 MG TAB Take one by mouth daily GLYBURIDE 49135515604 No Longer Active Simon Castillo MD Active LEVAQUIN 750 MG TABS 1 po qod x 5 doses LEVOFLOXACIN 23594334417 No Longer Active Simon Castillo MD Active CETIRIZINE HCL 10 MG TABS 1 po qd as needed for allergies CETIRIZINE HCL 59567894502 No Longer Active Simon Castillo MD Active BILBERRY CAPS 1 tab daily BILBERRY (VACCINIUM MYRTILLUS) CAPS 98589743573 Active Simon Castillo MD Active ATENOLOL 50 MG TABS Take one by mouth daily ATENOLOL 19810098566 No Longer Active Simon Castillo MD Active FLONASE 50 MCG/ACT SUSP 2 puffs in each nostril daily FLUTICASONE PROPIONATE 06848483633 No Longer Active Simon Castillo MD Active GLYBURIDE 5 MG TAB Take one by mouth daily GLYBURIDE 90660597691 No Longer Active Simon Castillo MD Active SYMBICORT 80-4.5 MCG/ACT AERO 2 puffs twice a day BUDESONIDE-FORMOTEROL FUMARATE 00622349442 No Longer Active Simon Castillo MD Active PREDNISONE 20 MG TAB 2 tabs daily for 4 days, 1 tab daily for 4 days, 1/2 tab daily for 4 days PREDNISONE 69479482672 No Longer Active Simon Castillo MD Active AMOXICILLIN 500 MG CAPS 2 po BID x 10 days AMOXICILLIN 75816844567 No Longer Active Simon Castillo MD Active METFORMIN HCL 1000 MG TABS 1 by mount twice a day METFORMIN HCL 11038218675 No Longer Active Simon Castillo MD Active LUTEIN-ZEAXANTHIN 6-1 MG TABS Take 2 by mouth daily LUTEIN-ZEAXANTHIN 45983351005 Active Simon Castillo MD Active IBUPROFEN 800 MG TABS Take 1 tab every 6 hrs prn IBUPROFEN 88134460065 No Longer Active Simon Castillo MD Active GLYBURIDE 2.5 MG TABS Take one by mouth daily GLYBURIDE 26588406396 No Longer Active Simon Castillo MD Active LANCETS MISC 2 qd LANCETS 61341916373 Active Pamela Conde Active ACACIA CONTOUR TEST STRP Use with testing twice daily GLUCOSE BLOOD 05502185545 Active Simon Castillo MD Active GLYBURIDE 2.5 MG TABS Take one by mouth daily GLYBURIDE 2.5 MG TABS 118613 GLYBURIDE Inactive PREDNISONE 20 MG TAB 2 tabs daily for 4 days, 1 tab daily for 4 days, 1/2 tab daily for 4 days PREDNISONE 20 MG TAB 653161 PREDNISONE Inactive SYMBICORT 80-4.5 MCG/ACT AERO 2 puffs twice a day SYMBICORT 80-4.5 MCG/ACT AERO BUDESONIDE-FORMOTEROL FUMARATE Inactive FLONASE 50 MCG/ACT SUSP 2 puffs in each nostril daily FLONASE 50 MCG/ACT SUSP 2614122 FLUTICASONE PROPIONATE Inactive ATENOLOL 50 MG TABS Take one by mouth daily ATENOLOL 50 MG TABS 810604 ATENOLOL Inactive CETIRIZINE HCL 10 MG TABS 1 po qd as needed for allergies CETIRIZINE HCL 10 MG TABS 2107159 CETIRIZINE HCL Inactive LEVAQUIN 750 MG TABS 1 po qod x 5 doses LEVAQUIN 750 MG TABS 401778 LEVOFLOXACIN Inactive GLYBURIDE 5 MG TAB Take one by mouth daily GLYBURIDE 5 MG TAB 997968 GLYBURIDE Inactive PREDNISONE 5 MG TAB Take one po qod PREDNISONE 5 MG TAB 538860 PREDNISONE Inactive PREDNISONE 20 MG TAB 2 tabs daily for 5 days, then 1 daily for 5 days PREDNISONE 20 MG TAB 582782 PREDNISONE Inactive FLONASE 50 MCG/ACT SUSP 2 puffs in each nostril daily FLONASE 50 MCG/ACT SUSP 8578814 FLUTICASONE PROPIONATE Inactive SYMBICORT 160-4.5 MCG/ACT AERO 2 puff BID SYMBICORT 160-4.5 MCG/ACT AERO BUDESONIDE-FORMOTEROL FUMARATE Inactive PREDNISONE 5 MG TABS 1 po qod PREDNISONE 5 MG TABS 441164 PREDNISONE Inactive PREDNISONE 20 MG TAB 1 tablet daily for airway inflammation 02/25 PREDNISONE 20 MG TAB 771910 PREDNISONE Inactive SULFASALAZINE 500 MG ORAL TBEC 2 tabs BID SULFASALAZINE 500 MG ORAL TBEC 000928 SULFASALAZINE Inactive LASIX 20 MG TAB 1 tablet by mouth daily x 2 days LASIX 20 MG TAB 428297 FUROSEMIDE Inactive CLARITIN 10 MG TAB 1 tablet by mouth daily as needed for allergies CLARITIN 10 MG TAB 120837 LORATADINE Inactive CLOTRIMAZOLE 1 % EXT CREA Apply to affected area of feet twice daily PRN Rash CLOTRIMAZOLE 1 % EXT CREA 370276 CLOTRIMAZOLE Inactive AMOXICILLIN 500 MG CAPS 2 po BID x 10 days AMOXICILLIN 500 MG CAPS 174956 AMOXICILLIN Inactive GLYBURIDE 5 MG TAB Take one by mouth daily GLYBURIDE 5 MG TAB 745955 GLYBURIDE Inactive AZITHROMYCIN 250 MG TABS 2 po qd x 1 day, then 1 po qd x 4 days AZITHROMYCIN 250 MG TABS 6025614 AZITHROMYCIN Inactive PREDNISONE 20 MG TAB 2 tabs daily for 3 days, 1 tab daily for 3 days, 1/2 tab daily for 2 days PREDNISONE 20 MG TAB 507634 PREDNISONE Inactive PREDNISONE 20 MG TAB 2 tabs daily for 5 days, then 1 daily for 5 days, then 0.5 for 4 days PREDNISONE 20 MG TAB 725155 PREDNISONE Inactive AZITHROMYCIN 250 MG TABS 2 po qd x 1 day, then 1 po qd x 4 days AZITHROMYCIN 250 MG TABS 9235138 AZITHROMYCIN Inactive PREDNISONE 20 MG TAB 2 tabs daily for 3 days, 1 tab daily for 3 days, 1/2 tab daily for 2 days PREDNISONE 20 MG TAB 953012 PREDNISONE Inactive TRIAMCINOLONE ACETONIDE 0.1 % OINT Apply to affected areas TID for up to 2 weeks TRIAMCINOLONE ACETONIDE 0.1 % OINT 2264220 TRIAMCINOLONE ACETONIDE Inactive Immunizations Vaccine Administration Date [...] E&M - 3141-9 218 [lb_av] Weight Measured Diagnostic Results Date Name [...] Panel - Chemistry cholesterol, serum 126 mg/dL 781-303 0369/02/07 triglyceride, serum, fasting 83 mg/dL 30-200 HDL cholesterol, serum 70 mg/dL 32-96 LDL cholesterol, serum 39 mg/dL 0-130 hemoglobin A1C, blood, as % of total hemoglobin 8.3 % 4.3-6.0 sodium, serum 141 mmol/L 336-162 5791/02/07 carbon dioxide, venous blood 26.0 mmol/L 21.0-32.0 [...] 0.00-1.00 Encounters Code Encounter Date Provider Facility CPT-49427 Level 4 Est. Patient 09:54:08 CDT Simon Castillo MD [facility] CPT-69197 Level 4 Est. Patient 16:11:23 CDT Simon Castillo MD [facility] CPT-36705 Level 4 Est. Patient 09:29:28 ORDER DEPARTMENT SUPERVISOR Simon Castillo MD [facility] CPT-40646 Level 3 Est. Patient 09:18:25 CDT Simon Castillo MD [facility] CPT-15167 Level 4 Est. Patient 11:51:23 CDT Simon Castillo MD [facility] CPT-76651 Level 4 Est. Patient 14:32:04 CDT Neto Oshea DO [facility] CPT-04060 Level 3 Est. Patient 08:41:43 CDT Jonathanviratriston Salcidoalejandrina [facility] CPT-09489 Level 3 Est. Patient 08:40:53 CDT Giles Salcidol [facility] CPT-79781 Level 3 Est. Patient 08:36:52 CDT Giles Salcidol [facility] CPT-87004 Level 3 Est. Patient 09:08:44 CDT Giles Salcidol [facility] CPT-15897 Level 4 Est. Patient 09:17:32 ORDER DEPARTMENT SUPERVISOR Simon Castillo MD [facility] CPT-48420 Level 3 Est. Patient 11:22:22 ORDER DEPARTMENT SUPERVISOR Simon Castillo MD [facility] CPT-07204 Level 3 Est. Patient 09:02:14 CDT Simon Castillo MD [facility] CPT-57050 Level 4 Est. Patient 08:47:25 CDT Simon Castillo MD [facility] CPT-16800 Level 4 Est. Patient 10:17:25 CDT Simon Castillo MD [facility] CPT-57458 Level 4 Est. Patient 10:10:09 ORDER DEPARTMENT SUPERVISOR Simon Castillo MD [facility] CPT-18615 Level 4 Est. Patient 11:48:19 CDT Simon Castillo MD [facility] CPT-22373 Level 4 Est. Patient 08:59:29 CDT Simon Castillo MD [facility] CPT-97153 Level 4 Est. Patient 10:52:51 ORDER DEPARTMENT SUPERVISOR Simon Castillo MD [facility] CPT-11770 Level 4 Est. Patient 11:50:30 CDT Simon Castillo MD [facility] CPT-02979 Level 4 Est. Patient 09:54:46 CDT Simon Castillo MD [facility] CPT-94669 Level 3 Est. Patient 11:10:14 CDT Simon Castillo MD [facility] CPT-86239 Level 4 Est. Patient 09:44:02 CDT Simon Castillo MD [facility] CPT-17003 Level 3 Est. Patient 09:27:48 CDT Simon Castillo MD [facility] CPT-20500 Level 3 Est. Patient 09:58:06 ORDER DEPARTMENT SUPERVISOR Simon Castillo MD [facility] CPT-53976 Level 3 Est. Patient 09:51:35 CDT Simon Castillo MD [facility] Procedures Code Procedure Name Date Entry Date Standard Description CPT-10576 Lipid - LAB USE ONLY 17:15:33 CDT CPT-10798 HGBA1C - LAB USE ONLY 17:15:33 CDT CPT-01612 CMP - LAB USE ONLY 17:15:33 CDT CPT-89095 Venipuncture Draw Fee 17:15:33 CDT CPT-TCM Transitional Care Mgmt-High 11:01:28 ORDER DEPARTMENT SUPERVISOR CPT-67734 First Vx - Ix admin for Medicare patients 17:33:39 CDT CPT-20563 Fluzone High-Dose Intramuscular Suspension 17:33:39 CDT CPT-G0438 Initial Annual Wellness Exam 08:57:30 CDT CPT-26383 Chest 2V Frontal and Lat - XRAY USE ONLY 09:00:14 CDT CPT-15168 Venipuncture Draw Fee 13:33:02 CDT CPT-21610 Bone Density 09:37:49 ORDER DEPARTMENT SUPERVISOR CPT-25817 Fluzone High Dose 17:20:42 CDT CPT-35402 Prevnar 13 17:20:42 CDT CPT-09462 Administration 2+ single or combination vaccines inc oral 17:20:42 CDT CPT-43432 Administration single or combination vaccine inc oral 17 :20:42 CDT CPT-04420 Hand comp min 3V 09:24:38 CDT CPT-63557 Venipuncture Draw Fee 08:07:29 ORDER DEPARTMENT SUPERVISOR CPT-94345 Venipuncture Draw Fee 09:02:51 ORDER DEPARTMENT SUPERVISOR CPT-64800 Venipuncture Draw Fee 12:45:08 ORDER DEPARTMENT SUPERVISOR CPT-97246 Venipuncture Draw Fee 09:25:31 CDT CPT-G0008 Administration of Influenza Virus Vaccine 14:41:29 CDT CPT-54490 Fluzone High-Dose Intramuscular Suspension 14:41:29 CDT CPT-Cryo Cryotherapy 11:48:20 CDT CPT-36097 EKG Trac and Interp 09:21:58 CDT CPT-26570 Chest 2V Frontal and Lat 09:21:58 CDT CPT-Cryo Cryotherapy 10:54:51 ORDER DEPARTMENT SUPERVISOR CPT-38190 Administration 2+ single or combination vaccines inc oral 10:42:19 CDT CPT-14336 Administration single or combination vaccine inc oral 10 :42:19 CDT CPT-62892 Pneumovax 10:42:19 CDT CPT-24425 Influenza High Dose age 65+ 10:42:19 CDT CPT-59799 Administration single or combination vaccine inc oral 13 :18:54 CDT CPT-81626 Influenza High Dose age 65+ 13:18:54 CDT CPT-36804 Venipuncture Draw Fee 11:53:16 CDT CPT-95669 LS spine comp w obliq 11:03:13 CDT CPT-Cryo Cryotherapy 08:27:16 ORDER DEPARTMENT SUPERVISOR CPT-22119 Administration single or combination vaccine inc oral 10 :56:34 CDT CPT-68385 Influenza High Dose age 65+ 10:56:34 CDT
--- OUTSIDE RECORDS SUMMARY | 2018-03-31 16:27 | XMS REPORT | Clinical Summary ---
Author Author Admin, E Organization [facility] Address Unknown Phone Unavailable Allergies, Adverse Reactions, Alerts Allergy Name Reaction Description Start Date Severity Status Provider No Known Allergies Dolly Marvin MATTHEWA Conditions or Problems Problem Name Problem [...] Simon Castillo MD Rheumatoid arthritis Steroid use, penitentiary V58.65 Resolved Simon Castillo MD Long-term (current) [...] 702.0 Active Simon Castillo MD Actinic keratosis FH DIABETES ICD-V18.0 Inactive Simon Castillo MD [...] MILD, HX OF ICD-V13.89 Kerry Castillo MD Actinic keratosis ICD-702.0 Inactive Simon Castillo MD SCIATICA ICD-724.3 Inactive Simon Castillo MD 2012 Cough ICD-786.2 Inactive Simon Castillo MD Eczema ICD-692.9 Kerry Castillo MD 02/27 Bronchitis, acute ICD-466.0 Inactive Simon Castillo MD Tinea pedis ICD-110.4 Inactive Simon Castillo MD Hand pain, bilateral ICD-729.5 Inactive Simon Castillo MD Obesity ICD-278.00 Inactive Simon Castillo MD 2013 Chest pain ICD-786.50 Inactive Simon Castillo MD 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 Inactive Simon Castillo MD Pharyngitis ICD-462 Inactive Simon Castillo MD Dyspnea ICD-786.09 Inactive Simon Castillo MD 2016 Peripheral edema ICD-782.3 Inactive Simon Castillo MD Pneumonia, right lower lobe ICD-486 Inactive Simon Castillo MD Sinusitis, acute ICD-461.9 Inactive Simon Castillo MD Dyspnea ICD-786.09 Inactive Simon Castillo MD 2016 Steroid use, penitentiary ICD-V58.65 Inactive Simon Castillo MD Hand pain, bilateral ICD-729.5 Inactive Simon Castillo MD Medication List Medication Instructions Start Date Stop Date Generic Name NDC Status Provider Patient Instruction BUMETANIDE 0.5 MG ORAL TABLET 1 po qd BUMETANIDE 34840288408 Active Simon Castillo MD Active AUGMENTIN 875-125 MG ORAL TABLET 1 po BID x 10 days AMOXICILLIN-POT CLAVULANATE 87251809066 No Longer Active Simon Castillo MD Active PIOGLITAZONE HCL 30 MG ORAL TABLET 1 po qd PIOGLITAZONE HCL 83444767567 Active Simon Castillo MD Active GLIMEPIRIDE 4 MG ORAL TABLET 1 po BID GLIMEPIRIDE 59902789612 Active Simon Castillo MD Active ASPIRIN EC 81 MG ORAL TABLET DELAYED RELEASE 1 po qd ASPIRIN 46857199006 Active Simon Castillo MD Active CLOTRIMAZOLE 1 % EXTERNAL CREAM Apply to affected area of feet twice daily PRN Rash CLOTRIMAZOLE 01832606652 No Longer Active Simon Castillo MD Active PREDNISONE 5 MG ORAL TABLET 1 po BID PREDNISONE 83251786461 Active Dolly MCDERMOTT Active FISH OIL 1000 MG ORAL CAPSULE DELAYED RELEASE 1 po BID OMEGA- 3 FATTY ACIDS 64048470525 Active Simon Castillo MD Active LISINOPRIL 10 MG ORAL TABLET 1 p qd LISINOPRIL 18266154629 Active Simon Castillo MD Active CLARITIN 10 MG ORAL TABLET 1 tablet by mouth daily as needed for allergies LORATADINE 48025028303 No Longer Active Simon Castillo MD Active TRIAMCINOLONE ACETONIDE 0.1 % EXTERNAL OINTMENT Apply to affected areas TID for up to 2 weeks TRIAMCINOLONE ACETONIDE 97399426513 No Longer Active Simon Castillo MD Active LASIX 20 MG ORAL TABLET 1 tablet by mouth daily x 2 days FUROSEMIDE 91643874472 No Longer Active Simon Castillo MD Active SULFASALAZINE 500 MG ORAL TABLET DELAYED RELEASE 2 tabs BID 02/26 SULFASALAZINE 08961769184 No Longer Active Neto Oshea DO Active PREDNISONE 20 MG ORAL TABLET 2 tabs daily for 3 days, 1 tab daily for 3 days, 1/2 tab daily for 2 days PREDNISONE 33630436327 No Longer Active Jilltriston Tatum APRN Active PREDNISONE 20 MG ORAL TABLET 1 tablet daily for airway inflammation PREDNISONE 59094169713 No Longer Active Jillina Fraamayal SECURITY ADVISOR Active AZITHROMYCIN 250 MG ORAL TABLET 2 po qd x 1 day, then 1 po qd x 4 days 01/28 AZITHROMYCIN 64769254542 No Longer Active Jillina Fraamayal SECURITY ADVISOR Active HYDROCODONE-ACETAMINOPHEN 5-325 MG ORAL TABLET 1 tab by mouth 8 hours as needed for pain HYDROCODONE-ACETAMINOPHEN 85388877609 Active Simon Castillo MD Active TRAMADOL HCL 50 MG ORAL TABLET 1 po q6hr PRN Pain TRAMADOL HCL 33320905439 No Longer Active Simon Castillo MD Active PREDNISONE 5 MG ORAL TABLET 1 po qod PREDNISONE 78251015810 No Longer Active Simon Casitllo MD Active SYMBICORT 160-4.5 MCG/ACT INHALATION AEROSOL 2 puff BID BUDESONIDE-FORMOTEROL FUMARATE 05748848361 No Longer Active Simon Castillo MD Active FLONASE 50 MCG/ACT NASAL SUSPENSION 2 puffs in each nostril daily FLUTICASONE PROPIONATE 11383676703 No Longer Active Smion Castillo MD Active PREDNISONE 20 MG ORAL TABLET 2 tabs daily for 5 days, then 1 daily for 5 days PREDNISONE 76605037413 No Longer Active Simon Castillo MD Active PREDNISONE 20 MG ORAL TABLET 2 tabs daily for 5 days, then 1 daily for 5 days , then 0.5 for 4 days PREDNISONE 30348102512 No Longer Active Simon Castillo MD Active PREDNISONE 20 MG ORAL TABLET 2 tabs daily for 3 days, 1 tab daily for 3 days, 1/2 tab daily for 2 days PREDNISONE 23803271833 No Longer Active Simon Castillo MD Active AZITHROMYCIN 250 MG ORAL TABLET 2 po qd x 1 day, then 1 po qd x 4 days 03/16 AZITHROMYCIN 22993788075 No Longer Active Simon Castillo MD Active CARVEDILOL 6.25 MG ORAL TABLET 1 po BID CARVEDILOL 12267651110 Active Simon Castillo MD Active LISINOPRIL-HYDROCHLOROTHIAZIDE 20-12.5 MG ORAL TABLET 1/2 tab by mouth daily LISINOPRIL-HYDROCHLOROTHIAZIDE 83401038660 No Longer Active Simon Castillo MD Active TRAMADOL HCL 50 MG ORAL TABLET 1-2 tablets every 6 hours as needed for pain TRAMADOL HCL 26393692087 Active Giles Tatum APRN Active PREDNISONE 5 MG ORAL TABLET Take one po qod PREDNISONE 83220655074 No Longer Active Simon Castillo MD Active GLYBURIDE 5 MG ORAL TABLET Take one by mouth daily GLYBURIDE 00269113455 No Longer Active Simon Castillo MD Active LEVAQUIN 750 MG ORAL TABLET 1 po qod x 5 doses LEVOFLOXACIN 05413239057 No Longer Active Simon Castillo MD Active CETIRIZINE HCL 10 MG ORAL TABLET 1 po qd as needed for allergies CETIRIZINE HCL 26682956592 No Longer Active Simon Castillo MD Active BILBERRY CAPSULE 1 tab daily BILBERRY (VACCINIUM MYRTILLUS) CAPS 36621530463 Active Simon Castillo MD Active ATENOLOL 50 MG ORAL TABLET Take one by mouth daily ATENOLOL 91123333157 No Longer Active Simon Castillo MD Active FLONASE 50 MCG/ACT NASAL SUSPENSION 2 puffs in each nostril daily FLUTICASONE PROPIONATE 88078262541 No Longer Active Simon Castillo MD Active GLYBURIDE 5 MG ORAL TABLET Take one by mouth daily GLYBURIDE 42526465141 No Longer Active Simon Castillo MD Active SYMBICORT 80-4.5 MCG/ACT INHALATION AEROSOL 2 puffs twice a day BUDESONIDE-FORMOTEROL FUMARATE 63238058570 No Longer Active Simon Castillo MD Active PREDNISONE 20 MG ORAL TABLET 2 tabs daily for 4 days, 1 tab daily for 4 days, 1/2 tab daily for 4 days PREDNISONE 36514643043 No Longer Active Simon Castillo MD Active AMOXICILLIN 500 MG ORAL CAPSULE 2 po BID x 10 days AMOXICILLIN 15755220441 No Longer Active Simon Castillo MD Active METFORMIN HCL 1000 MG ORAL TABLET [address] [facility] twice a day METFORMIN HCL 78972581142 No Longer Active Simon Castillo MD Active LUTEIN-ZEAXANTHIN 6-1 MG ORAL TABLET Take 2 by mouth daily LUTEIN- ZEAXANTHIN 27785112352 Active Simon Castillo MD Active IBUPROFEN 800 MG ORAL TABLET Take 1 tab every 6 hrs prn IBUPROFEN 81641357225 No Longer Active Simon Castillo MD Active GLYBURIDE 2.5 MG ORAL TABLET Take one by mouth daily GLYBURIDE 18011149124 No Longer Active Simon Castillo MD Active LANCETS 2 qd LANCETS 30450287876 Active Pamela Conde Active ACACIA CONTOUR TEST IN VITRO STRIP Use with testing twice daily GLUCOSE BLOOD 81109847583 Active Simon Castillo MD Active GLYBURIDE 2.5 MG ORAL TABLET Take one by mouth daily GLYBURIDE 2.5 MG ORAL TABLET 608954 GLYBURIDE Inactive PREDNISONE 20 MG ORAL TABLET 2 tabs daily for 4 days, 1 tab daily for 4 days, 1/2 tab daily for 4 days PREDNISONE 20 MG ORAL TABLET 849553 PREDNISONE Inactive SYMBICORT 80-4.5 MCG/ACT INHALATION AEROSOL 2 puffs twice a day SYMBICORT 80-4.5 MCG/ACT INHALATION AEROSOL BUDESONIDE- FORMOTEROL FUMARATE Inactive FLONASE 50 MCG/ACT NASAL SUSPENSION 2 puffs in each nostril daily FLONASE 50 MCG/ACT NASAL SUSPENSION 9391180 FLUTICASONE PROPIONATE Inactive ATENOLOL 50 MG ORAL TABLET Take one by mouth daily ATENOLOL 50 MG ORAL TABLET 836692 ATENOLOL Inactive CETIRIZINE HCL 10 MG ORAL TABLET 1 po qd as needed for allergies CETIRIZINE HCL 10 MG ORAL TABLET 0337380 CETIRIZINE HCL Inactive LEVAQUIN 750 MG ORAL TABLET 1 po qod x 5 doses LEVAQUIN 750 MG ORAL TABLET 999730 LEVOFLOXACIN Inactive GLYBURIDE 5 MG ORAL TABLET Take one by mouth daily GLYBURIDE 5 MG ORAL TABLET 269571 GLYBURIDE Inactive PREDNISONE 5 MG ORAL TABLET Take one po qod PREDNISONE 5 MG ORAL TABLET 902299 PREDNISONE Inactive PREDNISONE 20 MG ORAL TABLET 2 tabs daily for 5 days, then 1 daily for 5 days PREDNISONE 20 MG ORAL TABLET 232981 PREDNISONE Inactive FLONASE 50 MCG/ACT NASAL SUSPENSION 2 puffs in each nostril daily FLONASE 50 MCG/ACT NASAL SUSPENSION 6867924 FLUTICASONE PROPIONATE Inactive SYMBICORT 160-4.5 MCG/ACT INHALATION AEROSOL 2 puff BID SYMBICORT 160-4.5 MCG/ACT INHALATION AEROSOL BUDESONIDE-FORMOTEROL FUMARATE Inactive PREDNISONE 5 MG ORAL TABLET 1 po qod PREDNISONE 5 MG ORAL TABLET 401661 PREDNISONE Inactive PREDNISONE 20 MG ORAL TABLET 1 tablet daily for airway inflammation PREDNISONE 20 MG ORAL TABLET 908028 PREDNISONE Inactive SULFASALAZINE 500 MG ORAL TABLET DELAYED RELEASE 2 tabs BID 02/26 SULFASALAZINE 500 MG ORAL TABLET DELAYED RELEASE 838435 SULFASALAZINE Inactive LASIX 20 MG ORAL TABLET 1 tablet by mouth daily x 2 days LASIX 20 MG ORAL TABLET 041267 FUROSEMIDE Inactive CLARITIN 10 MG ORAL TABLET 1 tablet by mouth daily as needed for allergies CLARITIN 10 MG ORAL TABLET 206199 LORATADINE Inactive CLOTRIMAZOLE 1 % EXTERNAL CREAM Apply to affected area of feet twice daily PRN Rash CLOTRIMAZOLE 1 % EXTERNAL CREAM 899612 CLOTRIMAZOLE Inactive AMOXICILLIN 500 MG ORAL CAPSULE 2 po BID x 10 days AMOXICILLIN 500 MG ORAL CAPSULE 031181 AMOXICILLIN Inactive GLYBURIDE 5 MG ORAL TABLET Take one by mouth daily GLYBURIDE 5 MG ORAL TABLET 337194 GLYBURIDE Inactive AZITHROMYCIN 250 MG ORAL TABLET 2 po qd x 1 day, then 1 po qd x 4 days 03/16 AZITHROMYCIN 250 MG ORAL TABLET 039182 AZITHROMYCIN Inactive PREDNISONE 20 MG ORAL TABLET 2 tabs daily for 3 days, 1 tab daily for 3 days, 1/2 tab daily for 2 days PREDNISONE 20 MG ORAL TABLET 820343 PREDNISONE Inactive PREDNISONE 20 MG ORAL TABLET 2 tabs daily for 5 days, then 1 daily for 5 days , then 0.5 for 4 days PREDNISONE 20 MG ORAL TABLET 435394 PREDNISONE Inactive AZITHROMYCIN 250 MG ORAL TABLET 2 po qd x 1 day, then 1 po qd x 4 days 01/28 AZITHROMYCIN 250 MG ORAL TABLET 117547 AZITHROMYCIN Inactive PREDNISONE 20 MG ORAL TABLET 2 tabs daily for 3 days, 1 tab daily for 3 days, 1/2 tab daily for 2 days PREDNISONE 20 MG ORAL TABLET 415421 PREDNISONE Inactive TRIAMCINOLONE ACETONIDE 0.1 % EXTERNAL OINTMENT Apply to affected areas TID for up to 2 weeks TRIAMCINOLONE ACETONIDE 0.1 % EXTERNAL OINTMENT 1741896 TRIAMCINOLONE ACETONIDE Inactive AUGMENTIN 875-125 MG ORAL TABLET 1 po BID x 10 days AUGMENTIN 875-125 MG ORAL TABLET 533757 AMOXICILLIN-POT CLAVULANATE Inactive Immunizations Vaccine Administration Date Value Standard Description pneumococcal immunization administered Pneumovax 23 [CVX33] pneumococcal polysaccharide vaccine, 23 valent Vital Signs Date Name Value Unit Range Description blood pressure, diastolic 64 mm[Hg] BP castillo [...] Peptide - Chemistry sodium, serum 142 mmol/L 555-426 3368/07/18 potassium, serum 5.0 mmol/L 3.5-5.2 chloride, serum [...] Panel - Chemistry sodium, serum 140 mmol/L 955-260 5691/07/13 carbon dioxide, venous blood 23.7 mmol/L 21.0-32.0 potassium, serum 5.4 mmol/L 3.5-5.2 chloride, serum 106 mmol/L 98-107 blood glucose 156 mg/dL 65-110 urea nitrogen, blood 53 mg/dL 7-18 creatinine, serum 2.61 mg/dL 0.60-1.30 alanine aminotransferase (SGPT), serum 20 U/L 12-78 aspartate aminotransferase (SGOT), serum 17 U/L 15-37 calcium, serum 9.1 mg/dL 8.5-10.1 bilirubin, serum, total 0.50 mg/dL 0.00-1.00 Lab Report: HGBA1C - Chemistry hemoglobin A1C, blood, as % of total hemoglobin 7.8 % 4.3-6.0 Lab Report: Lipid Panel, HGBA1C, Comp. Metabolic Panel - Chemistry cholesterol, serum 126 mg/dL 414-428 2635/02/07 triglyceride, serum, fasting 83 mg/dL 30-200 HDL cholesterol, serum 70 mg/dL 32-96 LDL cholesterol, serum 39 mg/dL 0-130 hemoglobin A1C, blood, as % of total hemoglobin 8.3 % 4.3-6.0 sodium, serum 141 mmol/L 359-138 3047/02/07 carbon dioxide, venous blood 26.0 mmol/L 21.0-32.0 [...] 0.00-1.00 Encounters Code Encounter Date Provider Facility CPT-99788 Level 4 Est. Patient 09:54:36 CDT Simon Castillo MD [facility] CPT-10459 Level 4 Est. Patient 08:48:38 CDT Simon Castillo MD [facility] CPT-45975 Level 4 Est. Patient 09:54:08 CDT Simon Castillo MD [facility] CPT-78100 Level 4 Est. Patient 16:11:23 CDT Simon Castillo MD [facility] CPT-73925 Level 4 Est. Patient 09:29:28 DOUBLER HELPER Simon Castillo MD [facility] CPT-84141 Level 3 Est. Patient 09:18:25 CDT Simon Castillo MD [facility] CPT-81458 Level 4 Est. Patient 11:51:23 CDT Simon Castillo MD [facility] CPT-13904 Level 4 Est. Patient 14:32:04 CDT Neto Oshea DO [facility] CPT-89712 Level 3 Est. Patient 08:41:43 CDT Giles Tatum [facility] CPT-16600 Level 3 Est. Patient 08:40:53 CDT Giles Tatum [facility] CPT-31819 Level 3 Est. Patient 08:36:52 CDT Giles Tatum [facility] CPT-91176 Level 3 Est. Patient 09:08:44 CDT Giles Tatum APRN [facility] CPT-72610 Level 4 Est. Patient 09:17:32 DOUBLER HELPER Simon Castillo MD [facility] CPT-28770 Level 3 Est. Patient 11:22:22 DOUBLER HELPER Simon Castillo MD [facility] CPT-75425 Level 3 Est. Patient 09:02:14 CDT Simon Castillo MD [facility] CPT-56931 Level 4 Est. Patient 08:47:25 CDT Simon Castillo MD [facility] CPT-63807 Level 4 Est. Patient 10:17:25 CDT Simon Castillo MD [facility] CPT-06344 Level 4 Est. Patient 10:10:09 DOUBLER HELPER Simon Castillo MD [facility] CPT-31100 Level 4 Est. Patient 11:48:19 CDT Simon Castillo MD [facility] CPT-61043 Level 4 Est. Patient 08:59:29 CDT Simon Castillo MD [facility] CPT-59713 Level 4 Est. Patient 10:52:51 DOUBLER HELPER Simon Castillo MD [facility] CPT-82686 Level 4 Est. Patient 11:50:30 CDT Simon Castillo MD [facility] CPT-61009 Level 4 Est. Patient 09:54:46 CDT Simon Castillo MD [facility] CPT-81945 Level 3 Est. Patient 11:10:14 CDT Simon Castillo MD [facility] CPT-84715 Level 4 Est. Patient 09:44:02 CDT Simon Castillo MD [facility] CPT-02192 Level 3 Est. Patient 09:27:48 CDT Simon Castillo MD [facility] CPT-51051 Level 3 Est. Patient 09:58:06 DOUBLER HELPER Simon Castillo MD [facility] CPT-81573 Level 3 Est. Patient 09:51:35 CDT Simon Castillo MD [facility] Procedures Code Procedure Name Date Entry Date Standard Description CPT-Cryo Cryotherapy 09:54:37 CDT CPT-47199 First Vx - Ix admin for Medicare patients 09:13:10 CDT CPT-88201 Fluzone High-Dose Intramuscular Suspension 09:13:10 CDT CPT-G0439 Subsequent Annual Wellness Exam 09:41:17 CDT CPT-57769 Lipid - LAB USE ONLY 17:15:33 CDT CPT-71339 HGBA1C - LAB USE ONLY 17:15:33 CDT CPT-58969 CMP - LAB USE ONLY 17:15:33 CDT CPT-54134 Venipuncture Draw Fee 17:15:33 CDT CPT-[facility] Transitional Care Mgmt-High 11:01:28 DOUBLER HELPER CPT-15760 First Vx - Ix admin for Medicare patients 17:33:39 CDT CPT-97062 Fluzone High-Dose Intramuscular Suspension 17:33:39 CDT CPT-G0438 Initial Annual Wellness Exam 08:57:30 CDT CPT-87205 Chest 2V Frontal and Lat - XRAY USE ONLY 09:00:14 CDT CPT-47372 Venipuncture Draw Fee 13:33:02 CDT CPT-91826 Bone Density 09:37:49 DOUBLER HELPER CPT-97512 Fluzone High Dose 17:20:42 CDT CPT-28524 Prevnar 13 17:20:42 CDT CPT-12326 Administration 2+ single or combination vaccines inc oral 17:20:42 CDT CPT-08215 Administration single or combination vaccine inc oral 17 :20:42 CDT CPT-24852 Hand comp min 3V 09:24:38 CDT CPT-55898 Venipuncture Draw Fee 08:07:29 DOUBLER HELPER CPT-52909 Venipuncture Draw Fee 09:02:51 DOUBLER HELPER CPT-07100 Venipuncture Draw Fee 12:45:08 DOUBLER HELPER CPT-69709 Venipuncture Draw Fee 09:25:31 CDT CPT-G0008 Administration of Influenza Virus Vaccine 14:41:29 CDT CPT-84976 Fluzone High-Dose Intramuscular Suspension 14:41:29 CDT CPT-Cryo Cryotherapy 11:48:20 CDT CPT-32407 EKG Trac and Interp 09:21:58 CDT CPT-64808 Chest 2V Frontal and Lat 09:21:58 CDT CPT-Cryo Cryotherapy 10:54:51 DOUBLER HELPER CPT-94497 Administration 2+ single or combination vaccines inc oral 10:42:19 CDT CPT-20797 Administration single or combination vaccine inc oral 10 :42:19 CDT CPT-65438 Pneumovax 10:42:19 CDT CPT-33374 Influenza High Dose age 65+ 10:42:19 CDT CPT-36075 Administration single or combination vaccine inc oral 13 :18:54 CDT CPT-97191 Influenza High Dose age 65+ 13:18:54 CDT CPT-90538 Venipuncture Draw Fee 11:53:16 CDT CPT-16070 LS spine comp w obliq 11:03:13 CDT CPT-Cryo Cryotherapy 08:27:16 DOUBLER HELPER CPT-31992 Administration single or combination vaccine inc oral 10 :56:34 CDT CPT-13259 Influenza High Dose age 65+ 10:56:34 CDT
--- OUTSIDE RECORDS SUMMARY | 2018-03-31 16:28 | XMS REPORT | Clinical Summary ---
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 Kerry Castillo MD Hand pain, [...] MG ORAL TABS 1 po qd BUMETANIDE 61812644576 Active Simon Castillo MD Active AUGMENTIN 875-125 MG ORAL TABS 1 po BID x 10 days AMOXICILLIN-POT CLAVULANATE 24581883035 No Longer Active Simon Castillo MD Active PIOGLITAZONE HCL 30 MG ORAL TABS 1 po qd PIOGLITAZONE HCL 29851450250 Active Simon Castillo MD Active GLIMEPIRIDE 4 MG ORAL TABS 1 po BID GLIMEPIRIDE 69921083586 Active Simon Castillo MD Active ASPIRIN EC 81 MG ORAL TBEC 1 po qd ASPIRIN 73074864229 Active Simon Castillo MD Active CLOTRIMAZOLE 1 % EXT CREA Apply to affected area of feet twice daily PRN Rash CLOTRIMAZOLE 69700556112 No Longer Active Simon Castillo MD Active PREDNISONE 5 MG TAB 1 po BID PREDNISONE 22474334895 Active Simon Castillo MD Active FISH OIL 1000 MG CPDR 1 po BID OMEGA-3 FATTY ACIDS 87647681603 Active Simon Castillo MD Active LISINOPRIL 10 MG TABS 1 p qd LISINOPRIL 25783727130 Active Simon Castillo MD Active CLARITIN 10 MG TAB 1 tablet by mouth daily as needed for allergies LORATADINE 00628247210 No Longer Active Simon Castillo MD Active TRIAMCINOLONE ACETONIDE 0.1 % OINT Apply to affected areas TID for up to 2 weeks TRIAMCINOLONE ACETONIDE 51827688459 No Longer Active Simon Castillo MD Active LASIX 20 MG TAB 1 tablet by mouth daily x 2 days FUROSEMIDE 18134241288 No Longer Active Simon Castillo MD Active SULFASALAZINE 500 MG ORAL TBEC 2 tabs BID SULFASALAZINE 31427428349 No Longer Active Neto Oshea DO Active PREDNISONE 20 MG TAB 2 tabs daily for 3 days, 1 tab daily for 3 days, 1/2 tab daily for 2 days PREDNISONE 01707767397 No Longer Active 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 [employer]IT [employer]IDE Active PREDNISONE 20 MG TAB 1 tablet daily for airway inflammation 02/25 PREDNISONE 01416647656 No Longer Active 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 UNIT AIDE Active AZITHROMYCIN 250 MG TABS 2 po qd x 1 day, then 1 po qd x 4 days AZITHROMYCIN 41999588552 No Longer Active 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 UNIT AIDE Active HYDROCODONE-ACETAMINOPHEN 5-325 MG TABS 1 tab by mouth 8 hours as needed for pain HYDROCODONE-ACETAMINOPHEN 86569723761 Active Simon Castillo MD Active TRAMADOL HCL 50 MG TABS 1 po q6hr PRN Pain TRAMADOL HCL 55502320152 No Longer Active Simon Castillo MD Active PREDNISONE 5 MG TABS 1 po qod PREDNISONE 95644625504 No Longer Active Simon Castillo MD Active SYMBICORT 160-4.5 MCG/ACT AERO 2 puff BID BUDESONIDE- FORMOTEROL FUMARATE 65336048203 No Longer Active Simon Castillo MD Active FLONASE 50 MCG/ACT SUSP 2 puffs in each nostril daily FLUTICASONE PROPIONATE 02390254922 No Longer Active Simon Castillo MD Active PREDNISONE 20 MG TAB 2 tabs daily for 5 days, then 1 daily for 5 days PREDNISONE 78261372825 No Longer Active Simon Castillo MD Active PREDNISONE 20 MG TAB 2 tabs daily for 5 days, then 1 daily for 5 days, then 0.5 for 4 days PREDNISONE 41922889887 No Longer Active Simon Castillo MD Active PREDNISONE 20 MG TAB 2 tabs daily for 3 days, 1 tab daily for 3 days, 1/2 tab daily for 2 days PREDNISONE 47274300692 No Longer Active Simon Castillo MD Active AZITHROMYCIN 250 MG TABS 2 po qd x 1 day, then 1 po qd x 4 days AZITHROMYCIN 02502320725 No Longer Active Simon Castillo MD Active CARVEDILOL 6.25 MG TABS 1 po BID CARVEDILOL 24085310583 Active Simon Castillo MD Active LISINOPRIL-HYDROCHLOROTHIAZIDE 20-12.5 MG TABS 1/2 tab by mouth daily LISINOPRIL-HYDROCHLOROTHIAZIDE 41907232984 No Longer Active Simon Castillo MD Active TRAMADOL HCL 50 MG TABS 1-2 tablets every 6 hours as needed for pain TRAMADOL HCL 27134460882 Active Giles Tatum APRN Active PREDNISONE 5 MG TAB Take one po qod PREDNISONE 75998492545 No Longer Active Simon Castillo MD Active GLYBURIDE 5 MG TAB Take one by mouth daily GLYBURIDE 57120017498 No Longer Active Simon Castillo MD Active LEVAQUIN 750 MG TABS 1 po qod x 5 doses LEVOFLOXACIN 89851470280 No Longer Active Simon Castillo MD Active CETIRIZINE HCL 10 MG TABS 1 po qd as needed for allergies CETIRIZINE HCL 74990379184 No Longer Active Simon Castillo MD Active BILBERRY CAPS 1 tab daily BILBERRY (VACCINIUM MYRTILLUS) CAPS 37017844978 Active Simon Castillo MD Active ATENOLOL 50 MG TABS Take one by mouth daily ATENOLOL 93473756877 No Longer Active Simon Castillo MD Active FLONASE 50 MCG/ACT SUSP 2 puffs in each nostril daily FLUTICASONE PROPIONATE 45551700580 No Longer Active Simon Castillo MD Active GLYBURIDE 5 MG TAB Take one by mouth daily GLYBURIDE 34554771403 No Longer Active Simon Castillo MD Active SYMBICORT 80-4.5 MCG/ACT AERO 2 puffs twice a day BUDESONIDE-FORMOTEROL FUMARATE 13702748423 No Longer Active Simon Castillo MD Active PREDNISONE 20 MG TAB 2 tabs daily for 4 days, 1 tab daily for 4 days, 1/2 tab daily for 4 days PREDNISONE 10378837500 No Longer Active Simon Castillo MD Active AMOXICILLIN 500 MG CAPS 2 po BID x 10 days AMOXICILLIN 45679051205 No Longer Active Simon Castillo MD Active METFORMIN HCL 1000 MG TABS 1 by mounth twice a day METFORMIN HCL 79751403137 No Longer Active Simon Castillo MD Active LUTEIN-ZEAXANTHIN 6-1 MG TABS Take 2 by mouth daily LUTEIN-ZEAXANTHIN 68136808892 Active Simon Castillo MD Active IBUPROFEN 800 MG TABS Take 1 tab every 6 hrs prn IBUPROFEN 82917514416 No Longer Active Simon Castillo MD Active GLYBURIDE 2.5 MG TABS Take one by mouth daily GLYBURIDE 71524995668 No Longer Active Simon Castillo MD Active LANCETS MISC 2 qd LANCETS 89139993731 Active Pamela Conde Active ACACIA CONTOUR TEST STRP Use with testing twice daily GLUCOSE BLOOD 63474670298 Active Simon Castillo MD Active GLYBURIDE 2.5 MG TABS Take one by mouth daily GLYBURIDE 2.5 MG TABS 161120 GLYBURIDE Inactive PREDNISONE 20 MG TAB 2 tabs daily for 4 days, 1 tab daily for 4 days, 1/2 tab daily for 4 days PREDNISONE 20 MG TAB 046450 PREDNISONE Inactive SYMBICORT 80-4.5 MCG/ACT AERO 2 puffs twice a day SYMBICORT 80-4.5 MCG/ACT AERO BUDESONIDE-FORMOTEROL FUMARATE Inactive FLONASE 50 MCG/ACT SUSP 2 puffs in each nostril daily FLONASE 50 MCG/ACT SUSP 0805715 FLUTICASONE PROPIONATE Inactive ATENOLOL 50 MG TABS Take one by mouth daily ATENOLOL 50 MG TABS 902992 ATENOLOL Inactive CETIRIZINE HCL 10 MG TABS 1 po qd as needed for allergies CETIRIZINE HCL 10 MG TABS 5432708 CETIRIZINE HCL Inactive LEVAQUIN 750 MG TABS 1 po qod x 5 doses LEVAQUIN 750 MG TABS 852449 LEVOFLOXACIN Inactive GLYBURIDE 5 MG TAB Take one by mouth daily GLYBURIDE 5 MG TAB 297444 GLYBURIDE Inactive PREDNISONE 5 MG TAB Take one po qod PREDNISONE 5 MG TAB 782837 PREDNISONE Inactive PREDNISONE 20 MG TAB 2 tabs daily for 5 days, then 1 daily for 5 days PREDNISONE 20 MG TAB 835906 PREDNISONE Inactive FLONASE 50 MCG/ACT SUSP 2 puffs in each nostril daily FLONASE 50 MCG/ACT SUSP 7199953 FLUTICASONE PROPIONATE Inactive SYMBICORT 160-4.5 MCG/ACT AERO 2 puff BID SYMBICORT 160-4.5 MCG/ACT AERO BUDESONIDE-FORMOTEROL FUMARATE Inactive PREDNISONE 5 MG TABS 1 po qod PREDNISONE 5 MG TABS 606494 PREDNISONE Inactive PREDNISONE 20 MG TAB 1 tablet daily for airway inflammation 02/25 PREDNISONE 20 MG TAB 696300 PREDNISONE Inactive SULFASALAZINE 500 MG ORAL TBEC 2 tabs BID SULFASALAZINE 500 MG ORAL [facility] 794435 SULFASALAZINE Inactive LASIX 20 MG TAB 1 tablet by mouth daily x 2 days LASIX 20 MG TAB 850983 FUROSEMIDE Inactive CLARITIN 10 MG TAB 1 tablet by mouth daily as needed for allergies CLARITIN 10 MG TAB 758996 LORATADINE Inactive CLOTRIMAZOLE 1 % EXT CREA Apply to affected area of feet twice daily PRN Rash CLOTRIMAZOLE 1 % EXT CREA 024775 CLOTRIMAZOLE Inactive AMOXICILLIN 500 MG CAPS 2 po BID x 10 days AMOXICILLIN 500 MG CAPS 173161 AMOXICILLIN Inactive GLYBURIDE 5 MG TAB Take one by mouth daily GLYBURIDE 5 MG TAB 609988 GLYBURIDE Inactive AZITHROMYCIN 250 MG TABS 2 po qd x 1 day, then 1 po qd x 4 days AZITHROMYCIN 250 MG TABS 6654237 AZITHROMYCIN Inactive PREDNISONE 20 MG TAB 2 tabs daily for 3 days, 1 tab daily for 3 days, 1/2 tab daily for 2 days PREDNISONE 20 MG TAB 444949 PREDNISONE Inactive PREDNISONE 20 MG TAB 2 tabs daily for 5 days, then 1 daily for 5 days, then 0.5 for 4 days PREDNISONE 20 MG TAB 913842 PREDNISONE Inactive AZITHROMYCIN 250 MG TABS 2 po qd x 1 day, then 1 po qd x 4 days AZITHROMYCIN 250 MG TABS 1695389 AZITHROMYCIN Inactive PREDNISONE 20 MG TAB 2 tabs daily for 3 days, 1 tab daily for 3 days, 1/2 tab daily for 2 days PREDNISONE 20 MG TAB 039028 PREDNISONE Inactive TRIAMCINOLONE ACETONIDE 0.1 % OINT Apply to affected areas TID for up to 2 weeks TRIAMCINOLONE ACETONIDE 0.1 % OINT 7843707 TRIAMCINOLONE ACETONIDE Inactive AUGMENTIN 875-125 MG ORAL TABS 1 po BID x 10 days AUGMENTIN 875-125 MG ORAL TABS 479444 AMOXICILLIN-POT CLAVULANATE Inactive Immunizations Vaccine Administration Date [...] Peptide - Chemistry sodium, serum 142 mmol/L 382-212 2532/07/18 potassium, serum 5.0 mmol/L 3.5-5.2 chloride, serum [...] Panel - Chemistry sodium, serum 140 mmol/L 095-984 6674/07/13 carbon dioxide, venous blood 23.7 mmol/L 21.0-32.0 [...] Panel - Chemistry cholesterol, serum 126 mg/dL 843-316 1291/02/07 triglyceride, serum, fasting 83 mg/dL 30-200 HDL cholesterol, serum 70 mg/dL 32-96 LDL cholesterol, serum 39 mg/dL 0-130 hemoglobin A1C, blood, as % of total hemoglobin 8.3 % 4.3-6.0 sodium, serum 141 mmol/L 771-688 6235/02/07 carbon dioxide, venous blood 26.0 mmol/L 21.0-32.0 [...] 0.00-1.00 Encounters Code Encounter Date Provider Facility CPT-02815 Level 4 Est. Patient 08:48:38 CDT Simon Castillo MD [facility] CPT-99293 Level 4 Est. Patient 09:54:08 CDT Simon Castillo MD [facility] CPT-03742 Level 4 Est. Patient 16:11:23 CDT Simon Castillo MD [facility] CPT-88526 Level 4 Est. Patient 09:29:28 [employer] Simon Castillo MD [facility] CPT-06450 Level 3 Est. Patient 09:18:25 CDT Simon Castillo MD [facility] CPT-77119 Level 4 Est. Patient 11:51:23 CDT Simon Castillo MD [facility] CPT-72979 Level 4 Est. Patient 14:32:04 CDT Neto Oshea DO [facility] CPT-71632 Level 3 Est. Patient 08:41:43 CDT Jillina Nashzell [facility] CPT-29901 Level 3 Est. Patient 08:40:53 CDT 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 [facility] CPT-11276 Level 3 Est. Patient 08:36:52 CDT 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 [facility] CPT-70990 Level 3 Est. Patient 09:08:44 CDT Jillina Nashzell [facility] CPT-31750 Level 4 Est. Patient 09:17:32 [employer] Simon Castillo MD [facility] CPT-21604 Level 3 Est. Patient 11:22:22 [employer]PER[employer] Simon Castillo MD [facility] CPT-37498 Level 3 Est. Patient 09:02:14 CDT Simon Castillo MD [facility] CPT-36896 Level 4 Est. Patient 08:47:25 CDT Simon Castillo MD [facility] CPT-05676 Level 4 Est. Patient 10:17:25 CDT Simon Castillo MD [facility] CPT-95253 Level 4 Est. Patient 10:10:09 [employer]PERVIS[employer] Simon Castillo MD [facility] CPT-87441 Level 4 Est. Patient 11:48:19 CDT Simon Castillo MD [facility] CPT-99836 Level 4 Est. Patient 08:59:29 CDT Simon Castillo MD [facility] CPT-76942 Level 4 Est. Patient 10:52:51 [employer]PERVIS[employer]ING Simon Castillo MD [facility] CPT-67841 Level 4 Est. Patient 11:50:30 CDT Simon Castillo MD [facility] CPT-55996 Level 4 Est. Patient 09:54:46 CDT Simon Castillo MD [facility] CPT-75065 Level 3 Est. Patient 11:10:14 CDT Simon Castillo MD [facility] CPT-10955 Level 4 Est. Patient 09:44:02 CDT Simon Castillo MD [facility] CPT-30486 Level 3 Est. Patient 09:27:48 CDT Simon Castillo MD [facility] CPT-84772 Level 3 Est. Patient 09:58:06 [employer] Simon Castillo MD [facility] CPT-85827 Level 3 Est. Patient 09:51:35 CDT Simon Castillo MD [facility] Procedures Code Procedure Name Date Entry Date Standard Description CPT-G0439 Subsequent Annual Wellness Exam 09:41:17 CDT CPT-42324 Lipid - LAB USE ONLY 17:15:33 CDT CPT-90815 HGBA1C - LAB USE ONLY 17:15:33 CDT CPT-02578 CMP - LAB USE ONLY 17:15:33 CDT CPT-61612 Venipuncture Draw Fee 17:15:33 CDT CPT-[facility] Transitional Care Mgmt-High 11:01:28 [employer] CPT-43849 First Vx - Ix admin for Medicare patients 17:33:39 CDT CPT-62039 Fluzone High-Dose Intramuscular Suspension 17:33:39 CDT CPT-G0438 Initial Annual Wellness Exam 08:57:30 CDT CPT-20751 Chest 2V Frontal and Lat - XRAY USE ONLY 09:00:14 CDT CPT-50884 Venipuncture Draw Fee 13:33:02 CDT CPT-18451 Bone Density 09:37:49 [employer] CPT-47043 Fluzone High Dose 17:20:42 CDT CPT-31633 Prevnar 13 17:20:42 CDT CPT-37300 Administration 2+ single or combination vaccines inc oral 17:20:42 CDT CPT-30821 Administration single or combination vaccine inc oral 17 :20:42 CDT CPT-02728 Hand comp min 3V 09:24:38 CDT CPT-94362 Venipuncture Draw Fee 08:07:29 [employer] CPT-93136 Venipuncture Draw Fee 09:02:51 [employer] CPT-49107 Venipuncture Draw Fee 12:45:08 [employer] CPT-92384 Venipuncture Draw Fee 09:25:31 CDT CPT-G0008 Administration of Influenza Virus Vaccine 14:41:29 CDT CPT-33680 Fluzone High-Dose Intramuscular Suspension 14:41:29 CDT CPT-Cryo Cryotherapy 11:48:20 CDT CPT-15160 EKG Trac and Interp 09:21:58 CDT CPT-69290 Chest 2V Frontal and Lat 09:21:58 CDT CPT-Cryo Cryotherapy 10:54:51 [employer] CPT-84109 Administration 2+ single or combination vaccines inc oral 10:42:19 CDT CPT-62315 Administration single or combination vaccine inc oral 10 :42:19 CDT CPT-77670 Pneumovax 10:42:19 CDT CPT-92532 Influenza High Dose age 65+ 10:42:19 CDT CPT-87458 Administration single or combination vaccine inc oral 13 :18:54 CDT CPT-07998 Influenza High Dose age 65+ 13:18:54 CDT CPT-50036 Venipuncture Draw Fee 11:53:16 CDT CPT-46788 LS spine comp w obliq 11:03:13 CDT CPT-Cryo Cryotherapy 08:27:16 [employer]PER[employer] CPT-68878 Administration single or combination vaccine inc oral 10 :56:34 CDT CPT-29332 Influenza High Dose age 65+ 10:56:34 CDT
--- OUTSIDE RECORDS SUMMARY | 2018-03-31 16:29 | XMS REPORT | Clinical Summary ---
Author Author Admin, QIE Organization [facility] Address Unknown Phone Unavailable Allergies, Adverse Reactions, Alerts Allergy Name Reaction Description Start Date Severity Status Provider No Known Allergies Rose Marie Tran A Conditions or Problems Problem Name Problem Code [...] Simon Castillo MD Rheumatoid arthritis Steroid use, sleeve setter safety stitch V58.65 Resolved Simon Castillo MD Long-term (current) [...] LOWER QUADRANT ICD-789.03 Inactive Simon Castillo MD Obesity ICD-278.00 Inactive Simon Castillo MD 2013 Actinic keratosis ICD-702.0 Inactive Simon Castillo MD Chest pain ICD-786.50 Inactive Simon Castillo MD Cough ICD-786.2 Inactive Simon Castillo MD Eczema ICD-692.9 Inactive Simon Castillo MD 02/27 Bronchitis, acute ICD-466.0 Kerry Castillo MD SCIATICA ICD-724.3 Kerry Castillo MD 2012 Hand pain, bilateral ICD-729.5 Kerry Castillo MD Tinea pedis ICD-110.4 Kerry Castillo MD BENIGN PROSTATIC HYPERTROPHY, MILD, HX OF ICD-V13.89 Kerry Castillo MD Steroid use, sleeve setter safety stitch ICD-V58.65 Kerry Castillo MD Hand pain, bilateral [...] MD Lesion of skin of face ICD-709.9 Kerry Castillo MD 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 Inactive Simon Castillo MD Pharyngitis ICD-462 Inactive Simon Castillo MD Medication List Medication Instructions Start Date Stop Date Generic Name ND Status Provider Patient Instruction LUTEIN-ZEAXANTHIN 6-1 MG ORAL TABLET 2 po qd LUTEIN- ZEAXANTHIN 65884468968 Active Simon Castillo MD Active BILBERRY CAPSULE 1 po qd BILBERRY (VACCINIUM MYRTILLUS) CAPS 71919826404 Active Simon Castillo MD Active TRAMADOL HCL 50 MG ORAL TABLET 1-2 tablets every 6 hours as needed for pain TRAMADOL HCL 28737024222 No Longer Active Simon Castillo MD Active HYDROCODONE-ACETAMINOPHEN 5-325 MG ORAL TABLET 1 tab by mouth 8 hours as needed for pain HYDROCODONE-ACETAMINOPHEN 83329100001 No Longer Active Simon Castillo MD Active BUMETANIDE 0.5 MG ORAL TABLET 1 po qd BUMETANIDE 13186447693 Active Simon Castillo MD Active AUGMENTIN 875-125 MG ORAL TABLET 1 po BID x 10 days AMOXICILLIN-POT CLAVULANATE 57641647890 No Longer Active Simon Castillo MD Active PIOGLITAZONE HCL 30 MG ORAL TABLET 1 po qd PIOGLITAZONE HCL 27901427844 Active Simon Castillo MD Active GLIMEPIRIDE 4 MG ORAL TABLET 1 po BID GLIMEPIRIDE 00908614808 Active Simon Castillo MD Active ASPIRIN EC 81 MG ORAL TABLET DELAYED RELEASE 1 po qd ASPIRIN 40693740552 Active Simon Castillo MD Active CLOTRIMAZOLE 1 % EXTERNAL CREAM Apply to affected area of feet twice daily PRN Rash CLOTRIMAZOLE 54476177105 No Longer Active Simon Castillo MD Active PREDNISONE 5 MG ORAL TABLET 1 po BID PREDNISONE 32651520904 Active Dolly MCDERMOTT Active FISH OIL 1000 MG ORAL CAPSULE DELAYED RELEASE 1 po BID OMEGA- 3 FATTY ACIDS 51078317087 Active Simon Castillo MD Active LISINOPRIL 10 MG ORAL TABLET 1 p qd LISINOPRIL 74067168439 Active Simon Castillo MD Active CLARITIN 10 MG ORAL TABLET 1 tablet by mouth daily as needed for allergies LORATADINE 35613831653 No Longer Active Simon Castillo MD Active TRIAMCINOLONE ACETONIDE 0.1 % EXTERNAL OINTMENT Apply to affected areas TID for up to 2 weeks TRIAMCINOLONE ACETONIDE 50584365339 No Longer Active Simon Castillo MD Active LASIX 20 MG ORAL TABLET 1 tablet by mouth daily x 2 days FUROSEMIDE 36200980024 No Longer Active Simon Castillo MD Active SULFASALAZINE 500 MG ORAL TABLET DELAYED RELEASE 2 tabs BID 02/26 SULFASALAZINE 17256706861 No Longer Active Neto Oshea DO Active PREDNISONE 20 MG ORAL TABLET 2 tabs daily for 3 days, 1 tab daily for 3 days, 1/2 tab daily for 2 days PREDNISONE 53193493227 No Longer Active 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 VP DELIVERY Active PREDNISONE 20 MG ORAL TABLET 1 tablet daily for airway inflammation PREDNISONE 02556987412 No Longer Active 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 VP DELIVERY Active AZITHROMYCIN 250 MG ORAL TABLET 2 po qd x 1 day, then 1 po qd x 4 days 01/28 AZITHROMYCIN 86896221578 No Longer Active 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 VP DELIVERY Active TRAMADOL HCL 50 MG ORAL TABLET 1 po q6hr PRN Pain TRAMADOL HCL 63395487380 No Longer Active Simon Castillo MD Active PREDNISONE 5 MG ORAL TABLET 1 po qod PREDNISONE 05302927101 No Longer Active Simon Castillo MD Active SYMBICORT 160-4.5 MCG/ACT INHALATION AEROSOL 2 puff BID BUDESONIDE-FORMOTEROL FUMARATE 21203800904 No Longer Active Simon Castillo MD Active FLONASE 50 MCG/ACT NASAL SUSPENSION 2 puffs in each nostril daily FLUTICASONE PROPIONATE 93945403685 No Longer Active Simon Castillo MD Active PREDNISONE 20 MG ORAL TABLET 2 tabs daily for 5 days, then 1 daily for 5 days PREDNISONE 70347950534 No Longer Active Simon Castillo MD Active PREDNISONE 20 MG ORAL TABLET 2 tabs daily for 5 days, then 1 daily for 5 days , then 0.5 for 4 days PREDNISONE 05838507279 No Longer Active Simon Castillo MD Active PREDNISONE 20 MG ORAL TABLET 2 tabs daily for 3 days, 1 tab daily for 3 days, 1/2 tab daily for 2 days PREDNISONE 24695105745 No Longer Active Simon Castillo MD Active AZITHROMYCIN 250 MG ORAL TABLET 2 po qd x 1 day, then 1 po qd x 4 days 03/16 AZITHROMYCIN 19020314458 No Longer Active Simon Castillo MD Active CARVEDILOL 6.25 MG ORAL TABLET 1 po BID CARVEDILOL 57181963732 Active Simon Castillo MD Active LISINOPRIL-HYDROCHLOROTHIAZIDE 20-12.5 MG ORAL TABLET 1/2 tab by mouth daily LISINOPRIL-HYDROCHLOROTHIAZIDE 97888727698 No Longer Active Simon Castillo MD Active PREDNISONE 5 MG ORAL TABLET Take one po qod PREDNISONE 13854743088 No Longer Active Simon Castillo MD Active GLYBURIDE 5 MG ORAL TABLET Take one by mouth daily GLYBURIDE 28036208026 No Longer Active Simon Castillo MD Active LEVAQUIN 750 MG ORAL TABLET 1 po qod x 5 doses LEVOFLOXACIN 11551870643 No Longer Active Simon Castillo MD Active CETIRIZINE HCL 10 MG ORAL TABLET 1 po qd as needed for allergies CETIRIZINE HCL 13716502827 No Longer Active Simon Castillo MD Active ATENOLOL 50 MG ORAL TABLET Take one by mouth daily ATENOLOL 07956958192 No Longer Active Simon Castillo MD Active FLONASE 50 MCG/ACT NASAL SUSPENSION 2 puffs in each nostril daily FLUTICASONE PROPIONATE 36866504832 No Longer Active Simon Castillo MD Active GLYBURIDE 5 MG ORAL TABLET Take one by mouth daily GLYBURIDE 17577012972 No Longer Active Simon Castillo MD Active SYMBICORT 80-4.5 MCG/ACT INHALATION AEROSOL 2 puffs twice a day BUDESONIDE-FORMOTEROL FUMARATE 80009558477 No Longer Active Simon Castillo MD Active PREDNISONE 20 MG ORAL TABLET 2 tabs daily for 4 days, 1 tab daily for 4 days, 1/2 tab daily for 4 days PREDNISONE 73608560137 No Longer Active Simon Castillo MD Active AMOXICILLIN 500 MG ORAL CAPSULE 2 po BID x 10 days AMOXICILLIN 08921070381 No Longer Active Simon Castillo MD Active METFORMIN HCL 1000 MG ORAL TABLET 1 by mounth twice a day METFORMIN HCL 65961556530 No Longer Active Simon Castillo MD Active IBUPROFEN 800 MG ORAL TABLET Take 1 tab every 6 hrs prn IBUPROFEN 23147905503 No Longer Active Simon Castillo MD Active GLYBURIDE 2.5 MG ORAL TABLET Take one by mouth daily GLYBURIDE 36446548670 No Longer Active Simon Castillo MD Active LANCETS 2 qd LANCETS 73893413059 Active Pamela Conde Active ACACIA CONTOUR TEST IN VITRO STRIP Use with testing twice daily GLUCOSE BLOOD 60885268257 Active Simon Castillo MD Active GLYBURIDE 2.5 MG ORAL TABLET Take one by mouth daily GLYBURIDE 2.5 MG ORAL TABLET 841447 GLYBURIDE Inactive PREDNISONE 20 MG ORAL TABLET 2 tabs daily for 4 days, 1 tab daily for 4 days, 1/2 tab daily for 4 days PREDNISONE 20 MG ORAL TABLET 451145 PREDNISONE Inactive SYMBICORT 80-4.5 MCG/ACT INHALATION AEROSOL 2 puffs twice a day SYMBICORT 80-4.5 MCG/ACT INHALATION AEROSOL BUDESONIDE- FORMOTEROL FUMARATE Inactive FLONASE 50 MCG/ACT NASAL SUSPENSION 2 puffs in each nostril daily FLONASE 50 MCG/ACT NASAL SUSPENSION 0019655 FLUTICASONE PROPIONATE Inactive ATENOLOL 50 MG ORAL TABLET Take one by mouth daily ATENOLOL 50 MG ORAL TABLET 169511 ATENOLOL Inactive CETIRIZINE HCL 10 MG ORAL TABLET 1 po qd as needed for allergies CETIRIZINE HCL 10 MG ORAL TABLET 4015307 CETIRIZINE HCL Inactive LEVAQUIN 750 MG ORAL TABLET 1 po qod x 5 doses LEVAQUIN 750 MG ORAL TABLET 189628 LEVOFLOXACIN Inactive GLYBURIDE 5 MG ORAL TABLET Take one by mouth daily GLYBURIDE 5 MG ORAL TABLET 781011 GLYBURIDE Inactive PREDNISONE 5 MG ORAL TABLET Take one po qod PREDNISONE 5 MG ORAL TABLET 443509 PREDNISONE Inactive PREDNISONE 20 MG ORAL TABLET 2 tabs daily for 5 days, then 1 daily for 5 days PREDNISONE 20 MG ORAL TABLET 093390 PREDNISONE Inactive FLONASE 50 MCG/ACT NASAL SUSPENSION 2 puffs in each nostril daily FLONASE 50 MCG/ACT NASAL SUSPENSION 6170539 FLUTICASONE PROPIONATE Inactive SYMBICORT 160-4.5 MCG/ACT INHALATION AEROSOL 2 puff BID SYMBICORT 160-4.5 MCG/ACT INHALATION AEROSOL BUDESONIDE-FORMOTEROL FUMARATE Inactive PREDNISONE 5 MG ORAL TABLET 1 po qod PREDNISONE 5 MG ORAL TABLET 539100 PREDNISONE Inactive PREDNISONE 20 MG ORAL TABLET 1 tablet daily for airway inflammation PREDNISONE 20 MG ORAL TABLET 808038 PREDNISONE Inactive SULFASALAZINE 500 MG ORAL TABLET DELAYED RELEASE 2 tabs BID 02/26 SULFASALAZINE 500 MG ORAL TABLET DELAYED RELEASE 010068 SULFASALAZINE Inactive LASIX 20 MG ORAL TABLET 1 tablet by mouth daily x 2 days LASIX 20 MG ORAL TABLET 390610 FUROSEMIDE Inactive CLARITIN 10 MG ORAL TABLET 1 tablet by mouth daily as needed for allergies CLARITIN 10 MG ORAL TABLET 686543 LORATADINE Inactive CLOTRIMAZOLE 1 % EXTERNAL CREAM Apply to affected area of feet twice daily PRN Rash CLOTRIMAZOLE 1 % EXTERNAL CREAM 628210 CLOTRIMAZOLE Inactive HYDROCODONE-ACETAMINOPHEN 5-325 MG ORAL TABLET 1 tab by mouth 8 hours as needed for pain HYDROCODONE-ACETAMINOPHEN 5-325 MG ORAL TABLET 133698 HYDROCODONE-ACETAMINOPHEN Inactive TRAMADOL HCL 50 MG ORAL TABLET 1-2 tablets every 6 hours as needed for pain TRAMADOL HCL 50 MG ORAL TABLET 945123 TRAMADOL HCL Inactive AMOXICILLIN 500 MG ORAL CAPSULE 2 po BID x 10 days AMOXICILLIN 500 MG ORAL CAPSULE 560040 AMOXICILLIN Inactive GLYBURIDE 5 MG ORAL TABLET Take one by mouth daily GLYBURIDE 5 MG ORAL TABLET 323594 GLYBURIDE Inactive AZITHROMYCIN 250 MG ORAL TABLET 2 po qd x 1 day, then 1 po qd x 4 days 03/16 AZITHROMYCIN 250 MG ORAL TABLET 986028 AZITHROMYCIN Inactive PREDNISONE 20 MG ORAL TABLET 2 tabs daily for 3 days, 1 tab daily for 3 days, 1/2 tab daily for 2 days PREDNISONE 20 MG ORAL TABLET 656408 PREDNISONE Inactive PREDNISONE 20 MG ORAL TABLET 2 tabs daily for 5 days, then 1 daily for 5 days , then 0.5 for 4 days PREDNISONE 20 MG ORAL TABLET 100808 PREDNISONE Inactive AZITHROMYCIN 250 MG ORAL TABLET 2 po qd x 1 day, then 1 po qd x 4 days 01/28 AZITHROMYCIN 250 MG ORAL TABLET 963010 AZITHROMYCIN Inactive PREDNISONE 20 MG ORAL TABLET 2 tabs daily for 3 days, 1 tab daily for 3 days, 1/2 tab daily for 2 days PREDNISONE 20 MG ORAL TABLET 713803 PREDNISONE Inactive TRIAMCINOLONE ACETONIDE 0.1 % EXTERNAL OINTMENT Apply to affected areas TID for up to 2 weeks TRIAMCINOLONE ACETONIDE 0.1 % EXTERNAL OINTMENT 3367006 TRIAMCINOLONE ACETONIDE Inactive AUGMENTIN 875-125 MG ORAL TABLET 1 po BID x 10 days AUGMENTIN 875-125 MG ORAL TABLET 934746 AMOXICILLIN-POT CLAVULANATE Inactive Immunizations Vaccine Administration Date Value Standard Description pneumococcal immunization administered Pneumovax 23 [CVX33] pneumococcal polysaccharide vaccine, 23 valent Vital Signs Date Name Value Unit Range Description blood pressure, diastolic 59 mm[Hg] BP castillo [...] Peptide - Chemistry sodium, serum 142 mmol/L 954-885 9285/07/18 potassium, serum 5.0 mmol/L 3.5-5.2 chloride, serum [...] Panel - Chemistry sodium, serum 140 mmol/L 135-025 5359/07/13 carbon dioxide, venous blood 23.7 mmol/L 21.0-32.0 [...] dipstick Negative Negative sodium, serum 142 mmol/L 697-256 6074/01/08 carbon dioxide, venous blood 23.9 mmol/L 21.0-32.0 [...] Negative;Positive Encounters Code Encounter Date Provider Facility CPT-51538 Level 3 Est. Patient 12:04:38 [employer]INET[employer] HEL[employer] Giles Tatum [facility] CPT-71700 Level 3 Est. Patient 11:57:09 [employer]IN[employer] HELPER Giles Tatum [facility] CPT-17045 Level 3 Est. Patient 11:48:57 [employer]IN[employer] HELPER Giles Tatum [facility] CPT-71904 Level 4 Est. Patient 09:54:36 CDT Simon Castillo MD [facility] CPT-20247 Level 4 Est. Patient 08:48:38 CDT Simon Castillo MD [facility] CPT-10945 Level 4 Est. Patient 09:54:08 CDT Simon Castillo MD [facility] CPT-47229 Level 4 Est. Patient 16:11:23 CDT Simon Castillo MD [facility] CPT-09422 Level 4 Est. Patient 09:29:28 [employer]IN[employer] HELPER Simon Castillo MD [facility] CPT-48696 Level 3 Est. Patient 09:18:25 CDT Simon Castillo MD [facility] CPT-31727 Level 4 Est. Patient 11:51:23 CDT Simon Castillo MD [facility] CPT-18967 Level 4 Est. Patient 14:32:04 CDT Neto Oshea DO [facility] CPT-50740 Level 3 Est. Patient 08:41:43 CDT Giles Salcidol [facility] CPT-80962 Level 3 Est. Patient 08:40:53 CDT Giles Salcidol [facility] CPT-68167 Level 3 Est. Patient 08:36:52 CDT Giles Salcidol [facility] CPT-23478 Level 3 Est. Patient 09:08:44 CDT Giles Salcidol [facility] CPT-12054 Level 4 Est. Patient 09:17:32 [employer]IN[employer] HEL[employer] Simon Castillo MD [facility] CPT-18106 Level 3 Est. Patient 11:22:22 [employer]INETMAKER HELPER Simon Castillo MD [facility] CPT-08557 Level 3 Est. Patient 09:02:14 CDT Simon Castillo MD [facility] CPT-91777 Level 4 Est. Patient 08:47:25 CDT Simon Castillo MD [facility] CPT-12354 Level 4 Est. Patient 10:17:25 CDT Simon Castillo MD [facility] CPT-76954 Level 4 Est. Patient 10:10:09 [employer]INETMAKER HELPER Simon Castillo MD [facility] CPT-40815 Level 4 Est. Patient 11:48:19 CDT Simon Castillo MD [facility] CPT-72939 Level 4 Est. Patient 08:59:29 CDT Simon Castillo MD [facility] CPT-68458 Level 4 Est. Patient 10:52:51 [employer]IN[employer] HELPER Simon Castillo MD [facility] CPT-46503 Level 4 Est. Patient 11:50:30 CDT Simon Castillo MD [facility] CPT-17659 Level 4 Est. Patient 09:54:46 CDT Simon Castillo MD [facility] CPT-62068 Level 3 Est. Patient 11:10:14 CDT Simon Castillo MD [facility] CPT-02041 Level 4 Est. Patient 09:44:02 CDT Simon Castillo MD [facility] CPT-77820 Level 3 Est. Patient 09:27:48 CDT Simon Castillo MD [facility] CPT-11101 Level 3 Est. Patient 09:58:06 [employer]IN[employer]KER HELPER Simon Castillo MD [facility] CPT-13555 Level 3 Est. Patient 09:51:35 CDT Simon Castillo MD [facility] Procedures Code Procedure Name Date Entry Date Standard Description CPT-00392 EKG Trac and Interp - XRAY USE ONLY 12:19:18 [employer] HELPER 09/29 CPT-67071 Chest, 2 views 12:19:17 [employer] CPT-Cryo Cryotherapy 09:54:37 CDT CPT-79777 First Vx - Ix admin for Medicare patients 09:13:10 CDT CPT-20169 Fluzone High-Dose Intramuscular Suspension 09:13:10 CDT CPT-G0439 Subsequent Annual Wellness Exam 09:41:17 CDT CPT-88993 Lipid - LAB USE ONLY 17:15:33 CDT CPT-68469 HGBA1C - LAB USE ONLY 17:15:33 CDT CPT-59021 CMP - LAB USE ONLY 17:15:33 CDT CPT-23819 Venipuncture Draw Fee 17:15:33 CDT CPT-[facility] Transitional Care Mgmt-High 11:01:28 [employer]IN[employer] HELPER CPT-88116 First Vx - Ix admin for Medicare patients 17:33:39 CDT CPT-44780 Fluzone High-Dose Intramuscular Suspension 17:33:39 CDT CPT-G0438 Initial Annual Wellness Exam 08:57:30 CDT CPT-00155 Chest 2V Frontal and Lat - XRAY USE ONLY 09:00:14 CDT CPT-07168 Venipuncture Draw Fee 13:33:02 CDT CPT-03974 Bone Density 09:37:49 [employer] HEL[employer] CPT-69788 Fluzone High Dose 17:20:42 CDT CPT-27791 Prevnar 13 17:20:42 CDT CPT-60080 Administration 2+ single or combination vaccines inc oral 17:20:42 CDT CPT-22337 Administration single or combination vaccine inc oral 17 :20:42 CDT CPT-35657 Hand comp min 3V 09:24:38 CDT CPT-26187 Venipuncture Draw Fee 08:07:29 [employer]IN[employer] HEL[employer] CPT-48885 Venipuncture Draw Fee 09:02:51 [employer]INET[employer] HELPER CPT-59098 Venipuncture Draw Fee 12:45:08 [employer]INET[employer] HELPER CPT-78797 Venipuncture Draw Fee 09:25:31 CDT CPT-G0008 Administration of Influenza Virus Vaccine 14:41:29 CDT CPT-56748 Fluzone High-Dose Intramuscular Suspension 14:41:29 CDT CPT-Cryo Cryotherapy 11:48:20 CDT CPT-77575 EKG Trac and Interp 09:21:58 CDT CPT-48446 Chest 2V Frontal and Lat 09:21:58 CDT CPT-Cryo Cryotherapy 10:54:51 [employer] CPT-71957 Administration 2+ single or combination vaccines inc oral 10:42:19 CDT CPT-99423 Administration single or combination vaccine inc oral 10 :42:19 CDT CPT-79546 Pneumovax 10:42:19 CDT CPT-04011 Influenza High Dose age 65+ 10:42:19 CDT CPT-36313 Administration single or combination vaccine inc oral 13 :18:54 CDT CPT-50847 Influenza High Dose age 65+ 13:18:54 CDT CPT-20356 Venipuncture Draw Fee 11:53:16 CDT CPT-43007 LS spine comp w obliq 11:03:13 CDT CPT-Cryo Cryotherapy 08:27:16 [employer] HEL[employer] CPT-33706 Administration single or combination vaccine inc oral 10 :56:34 CDT CPT-48597 Influenza High Dose age 65+ 10:56:34 CDT
--- OUTSIDE RECORDS SUMMARY | 2018-03-31 16:30 | XMS REPORT | Clinical Summary ---
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.65 Keryr Castillo MD Hand pain, bilateral ICD-729.5 Inactive [...] MG ORAL TABS 1 po qd BUMETANIDE 83910442066 Active Simon Castillo MD Active AUGMENTIN 875-125 MG ORAL TABS 1 po BID x 10 days AMOXICILLIN-POT CLAVULANATE 90450300855 Active Simon Castillo MD Active PIOGLITAZONE HCL 30 MG ORAL TABS 1 po qd PIOGLITAZONE HCL 62068349710 Active Simon Castillo MD Active GLIMEPIRIDE 4 MG ORAL TABS 1 po BID GLIMEPIRIDE 21650411253 Active Simon Castillo MD Active ASPIRIN EC 81 MG ORAL TBEC 1 po qd ASPIRIN 09930655414 Active Simon Castillo MD Active CLOTRIMAZOLE 1 % EXT CREA Apply to affected area of feet twice daily PRN Rash CLOTRIMAZOLE 39124532503 No Longer Active Simon Castillo MD Active PREDNISONE 5 MG TAB 1 po BID PREDNISONE 43553566683 Active Simon Castillo MD Active FISH OIL 1000 MG CPDR 1 po BID OMEGA-3 FATTY ACIDS 88653034502 Active Simon Castillo MD Active LISINOPRIL 10 MG TABS 1 p qd LISINOPRIL 18460418347 Active Simon Castillo MD Active CLARITIN 10 MG TAB 1 tablet by mouth daily as needed for allergies LORATADINE 92660238246 No Longer Active Simon Castillo MD Active TRIAMCINOLONE ACETONIDE 0.1 % OINT Apply to affected areas TID for up to 2 weeks TRIAMCINOLONE ACETONIDE 94812976619 No Longer Active Simon Castillo MD Active LASIX 20 MG TAB 1 tablet by mouth daily x 2 days FUROSEMIDE 92196851966 No Longer Active Simon Castillo MD Active SULFASALAZINE 500 MG ORAL TBEC 2 tabs BID SULFASALAZINE 57685436968 No Longer Active Neto Oshea DO Active PREDNISONE 20 MG TAB 2 tabs daily for 3 days, 1 tab daily for 3 days, 1/2 tab daily for 2 days PREDNISONE 99499957096 No Longer Active 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 OVERLAY PLASTICIAN Active PREDNISONE 20 MG TAB 1 tablet daily for airway inflammation 02/25 PREDNISONE 82296543654 No Longer Active 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 OVERLAY PLASTICIAN Active AZITHROMYCIN 250 MG TABS 2 po qd x 1 day, then 1 po qd x 4 days AZITHROMYCIN 46362230890 No Longer Active 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 OVERLAY PLASTICIAN Active HYDROCODONE-ACETAMINOPHEN 5-325 MG TABS 1 tab by mouth 8 hours as needed for pain HYDROCODONE-ACETAMINOPHEN 40123405532 Active Simon Castillo MD Active TRAMADOL HCL 50 MG TABS 1 po q6hr PRN Pain TRAMADOL HCL 19839625002 No Longer Active Simon Castillo MD Active PREDNISONE 5 MG TABS 1 po qod PREDNISONE 37954122311 No Longer Active Simon Castillo MD Active SYMBICORT 160-4.5 MCG/ACT AERO 2 puff BID BUDESONIDE- FORMOTEROL FUMARATE 77454820787 No Longer Active Simon Castillo MD Active FLONASE 50 MCG/ACT SUSP 2 puffs in each nostril daily FLUTICASONE PROPIONATE 04245871428 No Longer Active Simon Castillo MD Active PREDNISONE 20 MG TAB 2 tabs daily for 5 days, then 1 daily for 5 days PREDNISONE 75834254151 No Longer Active Simon Castillo MD Active PREDNISONE 20 MG TAB 2 tabs daily for 5 days, then 1 daily for 5 days, then 0.5 for 4 days PREDNISONE 31453138636 No Longer Active Simon Castillo MD Active PREDNISONE 20 MG TAB 2 tabs daily for 3 days, 1 tab daily for 3 days, 1/2 tab daily for 2 days PREDNISONE 21789571557 No Longer Active Simon Castillo MD Active AZITHROMYCIN 250 MG TABS 2 po qd x 1 day, then 1 po qd x 4 days AZITHROMYCIN 88843576311 No Longer Active Simon Castillo MD Active CARVEDILOL 6.25 MG TABS 1 po BID CARVEDILOL 99683077272 Active Simon Castillo MD Active LISINOPRIL-HYDROCHLOROTHIAZIDE 20-12.5 MG TABS 1/2 tab by mouth daily LISINOPRIL-HYDROCHLOROTHIAZIDE 82444729057 No Longer Active Simon Castillo MD Active TRAMADOL HCL 50 MG TABS 1-2 tablets every 6 hours as needed for pain TRAMADOL HCL 17194762571 Active Giles Tatum APRN Active PREDNISONE 5 MG TAB Take one po qod PREDNISONE 43483832121 No Longer Active Simon Castillo MD Active GLYBURIDE 5 MG TAB Take one by mouth daily GLYBURIDE 40219299844 No Longer Active Simon Castillo MD Active LEVAQUIN 750 MG TABS 1 po qod x 5 doses LEVOFLOXACIN 85724301215 No Longer Active Simon Castillo MD Active CETIRIZINE HCL 10 MG TABS 1 po qd as needed for allergies CETIRIZINE HCL 48153326385 No Longer Active Simon Castillo MD Active BILBERRY CAPS 1 tab daily BILBERRY (VACCINIUM MYRTILLUS) CAPS 31548541529 Active Simon Castillo MD Active ATENOLOL 50 MG TABS Take one by mouth daily ATENOLOL 33938687164 No Longer Active Simon Castillo MD Active FLONASE 50 MCG/ACT SUSP 2 puffs in each nostril daily FLUTICASONE PROPIONATE 89056759569 No Longer Active Simon Castillo MD Active GLYBURIDE 5 MG TAB Take one by mouth daily GLYBURIDE 64159415459 No Longer Active Simon Castillo MD Active SYMBICORT 80-4.5 MCG/ACT AERO 2 puffs twice a day BUDESONIDE-FORMOTEROL FUMARATE 24084030274 No Longer Active Simon Castillo MD Active PREDNISONE 20 MG TAB 2 tabs daily for 4 days, 1 tab daily for 4 days, 1/2 tab daily for 4 days PREDNISONE 85974011203 No Longer Active Simon Castillo MD Active AMOXICILLIN 500 MG CAPS 2 po BID x 10 days AMOXICILLIN 59709784432 No Longer Active Simon Castillo MD Active METFORMIN HCL 1000 MG TABS 1 by mounth twice a day METFORMIN HCL 77890387322 No Longer Active Simon Castillo MD Active LUTEIN-ZEAXANTHIN 6-1 MG TABS Take 2 by mouth daily LUTEIN-ZEAXANTHIN 84401598029 Active Simon Castillo MD Active IBUPROFEN 800 MG TABS Take 1 tab every 6 hrs prn IBUPROFEN 90978595447 No Longer Active Simon Castillo MD Active GLYBURIDE 2.5 MG TABS Take one by mouth daily GLYBURIDE 45958910117 No Longer Active Simon Castillo MD Active LANCETS MISC 2 qd LANCETS 26965191827 Active Pamela Conde Active ACACIA CONTOUR TEST STRP Use with testing twice daily GLUCOSE BLOOD 42332974564 Active Simon Castillo MD Active GLYBURIDE 2.5 MG TABS Take one by mouth daily GLYBURIDE 2.5 MG TABS 125486 GLYBURIDE Inactive PREDNISONE 20 MG TAB 2 tabs daily for 4 days, 1 tab daily for 4 days, 1/2 tab daily for 4 days PREDNISONE 20 MG TAB 873808 PREDNISONE Inactive SYMBICORT 80-4.5 MCG/ACT AERO 2 puffs twice a day SYMBICORT 80-4.5 MCG/ACT AERO BUDESONIDE-FORMOTEROL FUMARATE Inactive FLONASE 50 MCG/ACT SUSP 2 puffs in each nostril daily FLONASE 50 MCG/ACT SUSP 5158458 FLUTICASONE PROPIONATE Inactive ATENOLOL 50 MG TABS Take one by mouth daily ATENOLOL 50 MG TABS 901153 ATENOLOL Inactive CETIRIZINE HCL 10 MG TABS 1 po qd as needed for allergies CETIRIZINE HCL 10 MG TABS 9340752 CETIRIZINE HCL Inactive LEVAQUIN 750 MG TABS 1 po qod x 5 doses LEVAQUIN 750 MG TABS 558011 LEVOFLOXACIN Inactive GLYBURIDE 5 MG TAB Take one by mouth daily GLYBURIDE 5 MG TAB 299097 GLYBURIDE Inactive PREDNISONE 5 MG TAB Take one po qod PREDNISONE 5 MG TAB 552223 PREDNISONE Inactive PREDNISONE 20 MG TAB 2 tabs daily for 5 days, then 1 daily for 5 days PREDNISONE 20 MG TAB 586842 PREDNISONE Inactive FLONASE 50 MCG/ACT SUSP 2 puffs in each nostril daily FLONASE 50 MCG/ACT SUSP 1584209 FLUTICASONE PROPIONATE Inactive SYMBICORT 160-4.5 MCG/ACT AERO 2 puff BID SYMBICORT 160-4.5 MCG/ACT AERO BUDESONIDE-FORMOTEROL FUMARATE Inactive PREDNISONE 5 MG TABS 1 po qod PREDNISONE 5 MG TABS 805722 PREDNISONE Inactive PREDNISONE 20 MG TAB 1 tablet daily for airway inflammation 02/25 PREDNISONE 20 MG TAB 315150 PREDNISONE Inactive SULFASALAZINE 500 MG ORAL TBEC 2 tabs BID SULFASALAZINE 500 MG ORAL [facility] 919366 SULFASALAZINE Inactive LASIX 20 MG TAB 1 tablet by mouth daily x 2 days LASIX 20 MG TAB 680748 FUROSEMIDE Inactive CLARITIN 10 MG TAB 1 tablet by mouth daily as needed for allergies CLARITIN 10 MG TAB 849410 LORATADINE Inactive CLOTRIMAZOLE 1 % EXT CREA Apply to affected area of feet twice daily PRN Rash CLOTRIMAZOLE 1 % EXT CREA 500475 CLOTRIMAZOLE Inactive AMOXICILLIN 500 MG CAPS 2 po BID x 10 days AMOXICILLIN 500 MG CAPS 896426 AMOXICILLIN Inactive GLYBURIDE 5 MG TAB Take one by mouth daily GLYBURIDE 5 MG TAB 323287 GLYBURIDE Inactive AZITHROMYCIN 250 MG TABS 2 po qd x 1 day, then 1 po qd x 4 days AZITHROMYCIN 250 MG TABS 1720823 AZITHROMYCIN Inactive PREDNISONE 20 MG TAB 2 tabs daily for 3 days, 1 tab daily for 3 days, 1/2 tab daily for 2 days PREDNISONE 20 MG TAB 157558 PREDNISONE Inactive PREDNISONE 20 MG TAB 2 tabs daily for 5 days, then 1 daily for 5 days, then 0.5 for 4 days PREDNISONE 20 MG TAB 441301 PREDNISONE Inactive AZITHROMYCIN 250 MG TABS 2 po qd x 1 day, then 1 po qd x 4 days AZITHROMYCIN 250 MG TABS 1905948 AZITHROMYCIN Inactive PREDNISONE 20 MG TAB 2 tabs daily for 3 days, 1 tab daily for 3 days, 1/2 tab daily for 2 days PREDNISONE 20 MG TAB 181735 PREDNISONE Inactive TRIAMCINOLONE ACETONIDE 0.1 % OINT Apply to affected areas TID for up to 2 weeks TRIAMCINOLONE ACETONIDE 0.1 % OINT 2957096 TRIAMCINOLONE ACETONIDE Inactive Immunizations Vaccine Administration Date [...] Panel - Chemistry sodium, serum 140 mmol/L 427-594 5548/07/13 carbon dioxide, venous blood 23.7 mmol/L 21.0-32.0 [...] Panel - Chemistry cholesterol, serum 126 mg/dL 265-858 3939/02/07 triglyceride, serum, fasting 83 mg/dL 30-200 HDL cholesterol, serum 70 mg/dL 32-96 LDL cholesterol, serum 39 mg/dL 0-130 hemoglobin A1C, blood, as % of total hemoglobin 8.3 % 4.3-6.0 sodium, serum 141 mmol/L 643-481 7635/02/07 carbon dioxide, venous blood 26.0 mmol/L 21.0-32.0 [...] 0.00-1.00 Encounters Code Encounter Date Provider Facility CPT-14225 Level 4 Est. Patient 08:48:38 CDT Simon Castillo MD [facility] CPT-70056 Level 4 Est. Patient 09:54:08 CDT Simon Castillo MD [facility] CPT-80530 Level 4 Est. Patient 16:11:23 CDT Simon Castillo MD [facility] CPT-51185 Level 4 Est. Patient 09:29:28 INDUSTRIAL RELATIONS ANALYST Simon Castillo MD [facility] CPT-28871 Level 3 Est. Patient 09:18:25 CDT Simon Castillo MD [facility] CPT-00231 Level 4 Est. Patient 11:51:23 CDT Simon Castillo MD [facility] CPT-41065 Level 4 Est. Patient 14:32:04 CDT Neto Oshea DO [facility] CPT-40003 Level 3 Est. Patient 08:41:43 CDT Giles Tatum [facility] CPT-83553 Level 3 Est. Patient 08:40:53 CDT Giles Salcidol [facility] CPT-31642 Level 3 Est. Patient 08:36:52 CDT Giles Salcidol [facility] CPT-47748 Level 3 Est. Patient 09:08:44 CDT Giles Salcidol [facility] CPT-06443 Level 4 Est. Patient 09:17:32 INDUSTRIAL RELATIONS ANALYST Simon Castillo MD [facility] CPT-78154 Level 3 Est. Patient 11:22:22 INDUSTRIAL RELATIONS ANALYST Simon Castillo MD [facility] CPT-27635 Level 3 Est. Patient 09:02:14 CDT Simon Castillo MD [facility] CPT-99281 Level 4 Est. Patient 08:47:25 CDT Simon Castillo MD [facility] CPT-86953 Level 4 Est. Patient 10:17:25 CDT Simon Castillo MD [facility] CPT-71594 Level 4 Est. Patient 10:10:09 INDUSTRIAL RELATIONS ANALYST Simon Castillo MD [facility] CPT-92190 Level 4 Est. Patient 11:48:19 CDT Simon Castillo MD [facility] CPT-72169 Level 4 Est. Patient 08:59:29 CDT Simon Castillo MD [facility] CPT-80357 Level 4 Est. Patient 10:52:51 INDUSTRIAL RELATIONS ANALYST Simon Castillo MD [facility] CPT-65850 Level 4 Est. Patient 11:50:30 CDT Simon Castillo MD [facility] CPT-74382 Level 4 Est. Patient 09:54:46 CDT Simon Castillo MD [facility] CPT-96724 Level 3 Est. Patient 11:10:14 CDT Simon Castillo MD [facility] CPT-89027 Level 4 Est. Patient 09:44:02 CDT Simon Castillo MD [facility] CPT-53377 Level 3 Est. Patient 09:27:48 CDT Simon Castillo MD [facility] CPT-58942 Level 3 Est. Patient 09:58:06 INDUSTRIAL RELATIONS ANALYST Simon Castillo MD [facility] CPT-77067 Level 3 Est. Patient 09:51:35 CDT Simon Castillo MD [facility] Procedures Code Procedure Name Date Entry Date Standard Description CPT-G0439 Subsequent Annual Wellness Exam 09:41:17 CDT CPT-30140 Lipid - LAB USE ONLY 17:15:33 CDT CPT-07380 HGBA1C - LAB USE ONLY 17:15:33 CDT CPT-24529 CMP - LAB USE ONLY 17:15:33 CDT CPT-96401 Venipuncture Draw Fee 17:15:33 CDT CPT-[facility] Transitional Care Mgmt-High 11:01:28 INDUSTRIAL RELATIONS ANALYST CPT-23049 First Vx - Ix admin for Medicare patients 17:33:39 CDT CPT-02525 Fluzone High-Dose Intramuscular Suspension 17:33:39 CDT CPT-G0438 Initial Annual Wellness Exam 08:57:30 CDT CPT-68262 Chest 2V Frontal and Lat - XRAY USE ONLY 09:00:14 CDT CPT-15534 Venipuncture Draw Fee 13:33:02 CDT CPT-54392 Bone Density 09:37:49 INDUSTRIAL RELATIONS ANALYST CPT-33819 Fluzone High Dose 17:20:42 CDT CPT-20235 Prevnar 13 17:20:42 CDT CPT-98760 Administration 2+ single or combination vaccines inc oral 17:20:42 CDT CPT-35941 Administration single or combination vaccine inc oral 17 :20:42 CDT CPT-51623 Hand comp min 3V 09:24:38 CDT CPT-46958 Venipuncture Draw Fee 08:07:29 INDUSTRIAL RELATIONS ANALYST CPT-15551 Venipuncture Draw Fee 09:02:51 INDUSTRIAL RELATIONS ANALYST CPT-42784 Venipuncture Draw Fee 12:45:08 INDUSTRIAL RELATIONS ANALYST CPT-20739 Venipuncture Draw Fee 09:25:31 CDT CPT-G0008 Administration of Influenza Virus Vaccine 14:41:29 CDT CPT-54880 Fluzone High-Dose Intramuscular Suspension 14:41:29 CDT CPT-Cryo Cryotherapy 11:48:20 CDT CPT-17000 EKG Trac and Interp 09:21:58 CDT CPT-85628 Chest 2V Frontal and Lat 09:21:58 CDT CPT-Cryo Cryotherapy 10:54:51 INDUSTRIAL RELATIONS ANALYST CPT-98622 Administration 2+ single or combination vaccines inc oral 10:42:19 CDT CPT-95879 Administration single or combination vaccine inc oral 10 :42:19 CDT CPT-44740 Pneumovax 10:42:19 CDT CPT-39184 Influenza High Dose age 65+ 10:42:19 CDT CPT-50180 Administration single or combination vaccine inc oral 13 :18:54 CDT CPT-24144 Influenza High Dose age 65+ 13:18:54 CDT CPT-29132 Venipuncture Draw Fee 11:53:16 CDT CPT-67293 LS spine comp w obliq 11:03:13 CDT CPT-Cryo Cryotherapy 08:27:16 INDUSTRIAL RELATIONS ANALYST CPT-79122 Administration single or combination vaccine inc oral 10 :56:34 CDT CPT-89812 Influenza High Dose age 65+ 10:56:34 CDT
--- OUTSIDE RECORDS SUMMARY | 2018-03-31 16:31 | XMS REPORT | Clinical Summary ---
Author Author Admin, RAFFI Salazar [email or web address] Address Unknown Phone Unavailable Allergies, Adverse Reactions, [...] 714.0 Active Rosy Eddy RMLuis Rheumatoid arthritis FH DIABETES ICD-V18.0 Inactive Simon Castillo MD [...] ICD-729.5 Inactive Simon Castillo MD Steroid use, intermediate ICD-V58.65 Inactive Simon Castillo MD Hand pain, bilateral ICD-729.5 Inactive Simon Castillo MD Medication List Medication Instructions Start Date Stop Date Generic Name NDC Status Provider Patient Instruction GLIMEPIRIDE 2 MG ORAL TABS 1 po q a.m. GLIMEPIRIDE 86121613096 Active Simon Castillo MD Active HYDROCODONE-ACETAMINOPHEN 5-325 MG TABS 1 tab by mouth 8 hours as needed for pain HYDROCODONE-ACETAMINOPHEN 95120708118 Active Simon Castillo MD Active TRAMADOL HCL 50 MG TABS 1 po q6hr PRN Pain TRAMADOL HCL 33179817070 No Longer Active Simon Castillo MD Active PREDNISONE 5 MG TAB 1-2 tabs daily for rheumatoid arthritis PREDNISONE 52794084564 Active Simon Castillo MD Active PREDNISONE 5 MG TABS 1 po qod PREDNISONE 12810536788 No Longer Active Simon Castillo MD Active SYMBICORT 160-4.5 MCG/ACT AERO 2 puff BID BUDESONIDE- FORMOTEROL FUMARATE 33871236325 No Longer Active Simon Castillo MD Active FLONASE 50 MCG/ACT SUSP 2 puffs in each nostril daily FLUTICASONE PROPIONATE 23836465960 No Longer Active Simon Castillo MD Active PREDNISONE 20 MG TAB 2 tabs daily for 5 days, then 1 daily for 5 days PREDNISONE 25425846116 No Longer Active Simon Castillo MD Active PREDNISONE 20 MG TAB 2 tabs daily for 5 days, then 1 daily for 5 days, then 0.5 for 4 days PREDNISONE 83687359377 No Longer Active Simon Castillo MD Active CLOTRIMAZOLE 1 % EXT CREA Apply to affected area of feet twice daily PRN Rash CLOTRIMAZOLE 73302810799 Active Simon Castillo MD Active PREDNISONE 20 MG TAB 2 tabs daily for 3 days, 1 tab daily for 3 days, 1/2 tab daily for 2 days PREDNISONE 41025817313 No Longer Active Simon Castillo MD Active AZITHROMYCIN 250 MG TABS 2 po qd x 1 day, then 1 po qd x 4 days AZITHROMYCIN 65316215464 No Longer Active Simon Castillo MD Active LISINOPRIL 10 MG TABS 1 tablet by mouth daily LISINOPRIL 10828854324 Active Simon Castillo MD Active CARVEDILOL 6.25 MG TABS 1 po BID CARVEDILOL 36394862624 Active Simon Castillo MD Active LISINOPRIL-HYDROCHLOROTHIAZIDE 20-12.5 MG TABS 1/2 tab by mouth daily LISINOPRIL-HYDROCHLOROTHIAZIDE 60737323168 No Longer Active Simon Castillo MD Active TRAMADOL HCL 50 MG TABS 1-2 tablets every 6 hours as needed for pain TRAMADOL HCL 84134418656 Active Simon Castillo MD Active PREDNISONE 5 MG TAB Take one po qod PREDNISONE 79906915736 No Longer Active Simon Castillo MD Active GLYBURIDE 5 MG TAB Take one by mouth daily GLYBURIDE 42653366550 No Longer Active Simon Castillo MD Active LEVAQUIN 750 MG TABS 1 po qod x 5 doses LEVOFLOXACIN 72165537167 No Longer Active Simon Castillo MD Active CETIRIZINE HCL 10 MG TABS 1 po qd as needed for allergies CETIRIZINE HCL 72240349739 No Longer Active Simon Castillo MD Active FISH OIL 1000 MG CPDR 1 pill by mouth twice daily for cholesterol OMEGA -3 FATTY ACIDS 72942159297 Active Simon Castillo MD Active BILBERRY CAPS 1 tab daily BILBERRY (VACCINIUM MYRTILLUS) CAPS 65191771704 Active Simon Castillo MD Active ATENOLOL 50 MG TABS Take one by mouth daily ATENOLOL 31589190641 No Longer Active Simon Castillo MD Active FLONASE 50 MCG/ACT SUSP 2 puffs in each nostril daily FLUTICASONE PROPIONATE 26794713957 No Longer Active Simon Castillo MD Active GLYBURIDE 5 MG TAB Take one by mouth daily GLYBURIDE 04802702154 No Longer Active Simon Castillo MD Active SYMBICORT 80-4.5 MCG/ACT AERO 2 puffs twice a day BUDESONIDE-FORMOTEROL FUMARATE 43529484915 No Longer Active Simon Castillo MD Active PREDNISONE 20 MG TAB 2 tabs daily for 4 days, 1 tab daily for 4 days, 1/2 tab daily for 4 days PREDNISONE 69873644731 No Longer Active Simon Castillo MD Active AMOXICILLIN 500 MG CAPS 2 po BID x 10 days AMOXICILLIN 63861984199 No Longer Active Simon Castillo MD Active METFORMIN HCL 1000 MG TABS 1 by mounth twice a day METFORMIN HCL 25352025510 No Longer Active Simon Castillo MD Active LUTEIN-ZEAXANTHIN 6-1 MG TABS Take 2 by mouth daily LUTEIN-ZEAXANTHIN 79743482080 Active Simon Castillo MD Active IBUPROFEN 800 MG TABS Take 1 tab every 6 hrs prn IBUPROFEN 78702650633 No Longer Active Simon Castillo MD Active GLYBURIDE 2.5 MG TABS Take one by mouth daily GLYBURIDE 58598634218 No Longer Active Simon Castillo MD Active LANCETS MISC 2 qd LANCETS 33292740410 Active Pamela Conde Active ACACIA CONTOUR TEST STRP Use with testing twice daily GLUCOSE BLOOD 43137347284 Active Simon Castillo MD Active ACACIA ASPIRIN 325 MG TABS Take one by mouth daily ASPIRIN 81941334733 Active Pamela Conde Active GLYBURIDE 2.5 MG TABS Take one by mouth daily GLYBURIDE 2.5 MG TABS 664688 GLYBURIDE Inactive PREDNISONE 20 MG TAB 2 tabs daily for 4 days, 1 tab daily for 4 days, 1/2 tab daily for 4 days PREDNISONE 20 MG TAB 480029 PREDNISONE Inactive SYMBICORT 80-4.5 MCG/ACT AERO 2 puffs twice a day SYMBICORT 80-4.5 MCG/ACT AERO BUDESONIDE-FORMOTEROL FUMARATE Inactive FLONASE 50 MCG/ACT SUSP 2 puffs in each nostril daily FLONASE 50 MCG/ACT SUSP FLUTICASONE PROPIONATE Inactive ATENOLOL 50 MG TABS Take one by mouth daily ATENOLOL 50 MG TABS 802566 ATENOLOL Inactive CETIRIZINE HCL 10 MG TABS 1 po qd as needed for allergies CETIRIZINE HCL 10 MG TABS 3142566 CETIRIZINE HCL Inactive LEVAQUIN 750 MG TABS 1 po qod x 5 doses LEVAQUIN 750 MG TABS 232735 LEVOFLOXACIN Inactive GLYBURIDE 5 MG TAB Take one by mouth daily GLYBURIDE 5 MG TAB 486960 GLYBURIDE Inactive PREDNISONE 5 MG TAB Take one po qod PREDNISONE 5 MG TAB 767037 PREDNISONE Inactive PREDNISONE 20 MG TAB 2 tabs daily for 5 days, then 1 daily for 5 days PREDNISONE 20 MG TAB 385205 PREDNISONE Inactive FLONASE 50 MCG/ACT SUSP 2 puffs in each nostril daily FLONASE 50 MCG/ACT SUSP FLUTICASONE PROPIONATE Inactive SYMBICORT 160-4.5 MCG/ACT AERO 2 puff BID SYMBICORT 160-4.5 MCG/ACT AERO BUDESONIDE-FORMOTEROL FUMARATE Inactive PREDNISONE 5 MG TABS 1 po qod PREDNISONE 5 MG TABS 551839 PREDNISONE Inactive AMOXICILLIN 500 MG CAPS 2 po BID x 10 days AMOXICILLIN 500 MG CAPS 423528 AMOXICILLIN Inactive GLYBURIDE 5 MG TAB Take one by mouth daily GLYBURIDE 5 MG TAB 722677 GLYBURIDE Inactive AZITHROMYCIN 250 MG TABS 2 po qd x 1 day, then 1 po qd x 4 days AZITHROMYCIN 250 MG TABS 5931722 AZITHROMYCIN Inactive PREDNISONE 20 MG TAB 2 tabs daily for 3 days, 1 tab daily for 3 days, 1/2 tab daily for 2 days PREDNISONE 20 MG TAB 368426 PREDNISONE Inactive PREDNISONE 20 MG TAB 2 tabs daily for 5 days, then 1 daily for 5 days, then 0.5 for 4 days PREDNISONE 20 MG TAB 136792 PREDNISONE Inactive Immunizations Vaccine Administration Date Value [...] Panel - Chemistry sodium, serum 132 mmol/L 498-532 1443/10/26 carbon dioxide, venous blood 22.8 mmol/L 21.0-32.0 [...] Rate - Chemistry sodium, serum 136 mmol/L 447-473 2653/09/18 carbon dioxide, venous blood 24.3 mmol/L 21.0-32.0 [...] HGBA1C - Chemistry sodium, serum 139 mmol/L 866-657 8884/07/09 potassium, serum 5.4 mmol/L 3.5-5.2 chloride, serum [...] 8.5 % 4.3-6.0 sodium, serum 137 mmol/L 902-656 4187/02/12 potassium, serum 5.1 mmol/L 3.5-5.2 chloride, serum 103 mmol/L 98-107 carbon dioxide, venous blood 24.4 mmol/L 21.0-32.0 blood glucose 261 mg/dL 65-110 calcium, serum 9.0 mg/dL 8.5-10.1 urea nitrogen, blood 44 mg/dL 7-18 creatinine, serum 2.37 mg/dL 0.55-1.30 Lab Report: Lipid Panel - Chemistry cholesterol, serum 139 mg/dL 188-903 9361/09/10 triglyceride, serum, fasting 176 mg/dL 30-200 HDL cholesterol, serum 45 mg/dL 32-96 LDL cholesterol, serum 59 mg/dL 0-130 Lab Report: MICROALBUMIN - Chemistry albumin/creatinine ratio, urine 30 - 300 mg/g mg/g{creat} 0-29 Lab Report: MICROALBUMIN - Lab microalbumin, urine 30 0-19 Encounters Code Encounter Date Provider Facility CPT-36409 Level 4 Est. Patient 09:17:32 INFORMATION RECEPTIONIST Simon Castillo MD [facility] CPT-55609 Level 3 Est. Patient 11:22:22 INFORMATION RECEPTIONIST Simon Castillo MD [facility] CPT-72736 Level 3 Est. Patient 09:02:14 CDT Simon Castillo MD [facility] CPT-16501 Level 4 Est. Patient 08:47:25 CDT Simon Castillo MD [facility] CPT-14869 Level 4 Est. Patient 10:17:25 CDT Simon Castillo MD [facility] CPT-08971 Level 4 Est. Patient 10:10:09 INFORMATION RECEPTIONIST Simon Castillo MD [facility] CPT-01220 Level 4 Est. Patient 11:48:19 CDT Simon Castillo MD [facility] CPT-12002 Level 4 Est. Patient 08:59:29 CDT Simon Castillo MD [facility] CPT-79250 Level 4 Est. Patient 10:52:51 INFORMATION RECEPTIONIST Simon Castillo MD [facility] CPT-33720 Level 4 Est. Patient 11:50:30 CDT Simon Castillo MD [facility] CPT-38037 Level 4 Est. Patient 09:54:46 CDT Simon Castillo MD [facility] CPT-50125 Level 3 Est. Patient 11:10:14 CDT Simon Castillo MD [facility] CPT-73893 Level 4 Est. Patient 09:44:02 CDT Simon Castillo MD [facility] CPT-65052 Level 3 Est. Patient 09:27:48 CDT Simon Castillo MD [facility] CPT-37056 Level 3 Est. Patient 09:58:06 INFORMATION RECEPTIONIST Simon Castillo MD [facility] CPT-39286 Level 3 Est. Patient 09:51:35 CDT Simon Castillo MD [facility] Procedures Code Procedure Name Date Entry Date Standard Description CPT-25410 Venipuncture Draw Fee 13:33:02 CDT CPT-34203 Bone Density 09:37:49 INFORMATION RECEPTIONIST CPT-37759 Fluzone High Dose 17:20:42 CDT CPT-82532 Prevnar 13 17:20:42 CDT CPT-16181 Administration 2+ single or combination vaccines inc oral 17:20:42 CDT CPT-15977 Administration single or combination vaccine inc oral 17 :20:42 CDT CPT-45120 Hand comp min 3V 09:24:38 CDT CPT-09760 Venipuncture Draw Fee 08:07:29 INFORMATION RECEPTIONIST CPT-49717 Venipuncture Draw Fee 09:02:51 INFORMATION RECEPTIONIST CPT-49013 Venipuncture Draw Fee 12:45:08 INFORMATION RECEPTIONIST CPT-27071 Venipuncture Draw Fee 09:25:31 CDT CPT-G0008 Administration of Influenza Virus Vaccine 14:41:29 CDT CPT-97733 Fluzone High-Dose Intramuscular Suspension 14:41:29 CDT CPT-Cryo Cryotherapy 11:48:20 CDT CPT-69521 EKG Trac and Interp 09:21:58 CDT CPT-07268 Chest 2V Frontal and Lat 09:21:58 CDT CPT-Cryo Cryotherapy 10:54:51 INFORMATION RECEPTIONIST CPT-22262 Administration 2+ single or combination vaccines inc oral 10:42:19 CDT CPT-27999 Administration single or combination vaccine inc oral 10 :42:19 CDT CPT-96469 Pneumovax 10:42:19 CDT CPT-18901 Influenza High Dose age 65+ 10:42:19 CDT CPT-12130 Administration single or combination vaccine inc oral 13 :18:54 CDT CPT-60918 Influenza High Dose age 65+ 13:18:54 CDT CPT-57579 Venipuncture Draw Fee 11:53:16 CDT CPT-04414 LS spine comp w obliq 11:03:13 CDT CPT-Cryo Cryotherapy 08:27:16 INFORMATION RECEPTIONIST CPT-35472 Administration single or combination vaccine inc oral 10 :56:34 CDT CPT-57376 Influenza High Dose age 65+ 10:56:34 CDT
--- OUTSIDE RECORDS SUMMARY | 2018-03-31 16:32 | XMS REPORT | Clinical Summary ---
Author Author Admin, E Organization [facility] Address Unknown Phone Unavailable Allergies, Adverse Reactions, Alerts Allergy Name Reaction Description Start Date Severity Status Provider No Known Allergies [facility] Conditions or Problems Problem Name [...] unspecified cause Benign prostatic hypertrophy 600.00 Active iSmon Castillo MD Hypertrophy (benign) of prostate without urinary obstruction and other lower urinary tract (LUTS) Bronchitis, acute 466.0 Resolved Simon Castillo MD Acute bronchitis Tinea pedis 110.4 Resolved Simon Castillo MD Dermatophytosis of foot Hand pain, bilateral 729.5 Resolved Simon Castillo MD Pain in limb Rheumatoid arthritis 714.0 Active Simon Castillo MD Rheumatoid arthritis 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, 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 Simon Castillo MD Long-term (current) [...] Rheumatoid arthritis Pharyngitis 462 Active 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 [employer] Acute pharyngitis Dyspnea 786.09 Active 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 [employer] WR[employer] Other dyspnea and respiratory abnormality Peripheral edema 782.3 Active 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 [employer] WR[employer] Edema 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 Simon Castillo [...] ICD-729.5 Inactive Simon Castillo MD 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, 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 ICD-V58.65 Inactive Simon Castillo MD Hand pain, bilateral ICD-729.5 Kerry Castillo MD Medication List Medication Instructions Start Date Stop Date Generic Name NDC Status Provider Patient Instruction TRIAMCINOLONE ACETONIDE 0.1 % OINT Apply to affected areas TID for up to 2 weeks TRIAMCINOLONE ACETONIDE 04219488830 No Longer Active Simon Castillo MD Active LASIX 20 MG TAB 1 tablet by mouth daily x 2 days FUROSEMIDE 73712088487 No Longer Active Simon Castillo MD Active SULFASALAZINE 500 MG ORAL TBEC 2 tabs BID SULFASALAZINE 34291090696 No Longer Active Neto Oshea DO Active PREDNISONE 20 MG TAB 2 tabs daily for 3 days, 1 tab daily for 3 days, 1/2 tab daily for 2 days PREDNISONE 50265463214 No Longer Active Jillina Frazelalejandrina HEMPHILL Active PREDNISONE 20 MG TAB 1 tablet daily for airway inflammation 02/25 PREDNISONE 72247801285 No Longer Active 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 SONG WRITER Active CLARITIN 10 MG TAB 1 tablet by mouth daily as needed for allergies LORATADINE 20798180429 Active Jillina Lolyl SONG WRITER Active AZITHROMYCIN 250 MG TABS 2 po qd x 1 day, then 1 po qd x 4 days AZITHROMYCIN 83451186009 No Longer Active 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 [employer]ONG WRITER Active GLIMEPIRIDE 2 MG ORAL TABS 1 po q a.m. GLIMEPIRIDE 36392007113 Active Simon Castillo MD Active HYDROCODONE-ACETAMINOPHEN 5-325 MG TABS 1 tab by mouth 8 hours as needed for pain HYDROCODONE-ACETAMINOPHEN 07630936080 Active Simon Castillo MD Active TRAMADOL HCL 50 MG TABS 1 po q6hr PRN Pain TRAMADOL HCL 19132867008 No Longer Active Simon Castillo MD Active PREDNISONE 5 MG TAB 1-2 tabs daily for rheumatoid arthritis PREDNISONE 19334823401 Active Simon Castillo MD Active PREDNISONE 5 MG TABS 1 po qod PREDNISONE 98630853470 No Longer Active Simon Castillo MD Active SYMBICORT 160-4.5 MCG/ACT AERO 2 puff BID BUDESONIDE- FORMOTEROL FUMARATE 45539460196 No Longer Active Simon Castillo MD Active FLONASE 50 MCG/ACT SUSP 2 puffs in each nostril daily FLUTICASONE PROPIONATE 12022385544 No Longer Active Simon Castillo MD Active PREDNISONE 20 MG TAB 2 tabs daily for 5 days, then 1 daily for 5 days PREDNISONE 35850999763 No Longer Active Simon Castillo MD Active PREDNISONE 20 MG TAB 2 tabs daily for 5 days, then 1 daily for 5 days, then 0.5 for 4 days PREDNISONE 51545286145 No Longer Active Simon Castillo MD Active CLOTRIMAZOLE 1 % EXT CREA Apply to affected area of feet twice daily PRN Rash CLOTRIMAZOLE 13092665822 Active Simon Castillo MD Active PREDNISONE 20 MG TAB 2 tabs daily for 3 days, 1 tab daily for 3 days, 1/2 tab daily for 2 days PREDNISONE 94830594932 No Longer Active Simon Castillo MD Active AZITHROMYCIN 250 MG TABS 2 po qd x 1 day, then 1 po qd x 4 days AZITHROMYCIN 81385035940 No Longer Active Simon Castillo MD Active LISINOPRIL 10 MG TABS 1 tablet by mouth daily LISINOPRIL 94610087995 Active Simon Castillo MD Active CARVEDILOL 6.25 MG TABS 1 po BID CARVEDILOL 71822239640 Active Simon Castillo MD Active LISINOPRIL-HYDROCHLOROTHIAZIDE 20-12.5 MG TABS 1/2 tab by mouth daily LISINOPRIL-HYDROCHLOROTHIAZIDE 43258292539 No Longer Active Simon Castillo MD Active TRAMADOL HCL 50 MG TABS 1-2 tablets every 6 hours as needed for pain TRAMADOL HCL 85309711250 Active Giles Tatum APRN Active PREDNISONE 5 MG TAB Take one po qod PREDNISONE 18247040056 No Longer Active Simon Castillo MD Active GLYBURIDE 5 MG TAB Take one by mouth daily GLYBURIDE 85397784198 No Longer Active Simon Castillo MD Active LEVAQUIN 750 MG TABS 1 po qod x 5 doses LEVOFLOXACIN 98078256875 No Longer Active Simon Castillo MD Active CETIRIZINE HCL 10 MG TABS 1 po qd as needed for allergies CETIRIZINE HCL 01054654576 No Longer Active Simon Castillo MD Active FISH OIL 1000 MG CPDR 1 pill by mouth twice daily for cholesterol OMEGA -3 FATTY ACIDS 61169450688 Active Simon Castillo MD Active BILBERRY CAPS 1 tab daily BILBERRY (VACCINIUM MYRTILLUS) CAPS 44686687291 Active Simon Castillo MD Active ATENOLOL 50 MG TABS Take one by mouth daily ATENOLOL 04039303027 No Longer Active Simon Castillo MD Active FLONASE 50 MCG/ACT SUSP 2 puffs in each nostril daily FLUTICASONE PROPIONATE 88702366151 No Longer Active Simon Castillo MD Active GLYBURIDE 5 MG TAB Take one by mouth daily GLYBURIDE 10704409872 No Longer Active Simon Castillo MD Active SYMBICORT 80-4.5 MCG/ACT AERO 2 puffs twice a day BUDESONIDE-FORMOTEROL FUMARATE 12197100384 No Longer Active Simon Castillo MD Active PREDNISONE 20 MG TAB 2 tabs daily for 4 days, 1 tab daily for 4 days, 1/2 tab daily for 4 days PREDNISONE 18191433992 No Longer Active Simon Castillo MD Active AMOXICILLIN 500 MG CAPS 2 po BID x 10 days AMOXICILLIN 53321472655 No Longer Active Simon Castillo MD Active METFORMIN HCL 1000 MG TABS 1 by mounth twice a day METFORMIN HCL 70610088587 No Longer Active Simon Castillo MD Active LUTEIN-ZEAXANTHIN 6-1 MG TABS Take 2 by mouth daily LUTEIN-ZEAXANTHIN 55524013751 Active Simon Castillo MD Active IBUPROFEN 800 MG TABS Take 1 tab every 6 hrs prn IBUPROFEN 06336218242 No Longer Active Simon Castillo MD Active GLYBURIDE 2.5 MG TABS Take one by mouth daily GLYBURIDE 26264721133 No Longer Active Simon Castillo MD Active LANCETS MISC 2 qd LANCETS 62555551656 Active Pamela Conde Active ACACIA CONTOUR TEST STRP Use with testing twice daily GLUCOSE BLOOD 74643449656 Active Simon Castillo MD Active ACACIA ASPIRIN 325 MG TABS Take one by mouth daily ASPIRIN 73632492808 Active Pamela Conde Active GLYBURIDE 2.5 MG TABS Take one by mouth daily GLYBURIDE 2.5 MG TABS 070291 GLYBURIDE Inactive PREDNISONE 20 MG TAB 2 tabs daily for 4 days, 1 tab daily for 4 days, 1/2 tab daily for 4 days PREDNISONE 20 MG TAB 187373 PREDNISONE Inactive SYMBICORT 80-4.5 MCG/ACT AERO 2 puffs twice a day SYMBICORT 80-4.5 MCG/ACT AERO BUDESONIDE-FORMOTEROL FUMARATE Inactive FLONASE 50 MCG/ACT SUSP 2 puffs in each nostril daily FLONASE 50 MCG/ACT SUSP FLUTICASONE PROPIONATE Inactive ATENOLOL 50 MG TABS Take one by mouth daily ATENOLOL 50 MG TABS 456944 ATENOLOL Inactive CETIRIZINE HCL 10 MG TABS 1 po qd as needed for allergies CETIRIZINE HCL 10 MG TABS 7376183 CETIRIZINE HCL Inactive LEVAQUIN 750 MG TABS 1 po qod x 5 doses LEVAQUIN 750 MG TABS 132490 LEVOFLOXACIN Inactive GLYBURIDE 5 MG TAB Take one by mouth daily GLYBURIDE 5 MG TAB 309705 GLYBURIDE Inactive PREDNISONE 5 MG TAB Take one po qod PREDNISONE 5 MG TAB 923189 PREDNISONE Inactive PREDNISONE 20 MG TAB 2 tabs daily for 5 days, then 1 daily for 5 days PREDNISONE 20 MG TAB 092172 PREDNISONE Inactive FLONASE 50 MCG/ACT SUSP 2 puffs in each nostril daily FLONASE 50 MCG/ACT SUSP FLUTICASONE PROPIONATE Inactive SYMBICORT 160-4.5 MCG/ACT AERO 2 puff BID SYMBICORT 160-4.5 MCG/ACT AERO BUDESONIDE-FORMOTEROL FUMARATE Inactive PREDNISONE 5 MG TABS 1 po qod PREDNISONE 5 MG TABS 248702 PREDNISONE Inactive PREDNISONE 20 MG TAB 1 tablet daily for airway inflammation 02/25 PREDNISONE 20 MG TAB 216309 PREDNISONE Inactive SULFASALAZINE 500 MG ORAL TBEC 2 tabs BID SULFASALAZINE 500 MG ORAL TBEC 965150 SULFASALAZINE Inactive LASIX 20 MG TAB 1 tablet by mouth daily x 2 days LASIX 20 MG TAB 843401 FUROSEMIDE Inactive AMOXICILLIN 500 MG CAPS 2 po BID x 10 days AMOXICILLIN 500 MG CAPS 947289 AMOXICILLIN Inactive GLYBURIDE 5 MG TAB Take one by mouth daily GLYBURIDE 5 MG TAB 757393 GLYBURIDE Inactive AZITHROMYCIN 250 MG TABS 2 po qd x 1 day, then 1 po qd x 4 days AZITHROMYCIN 250 MG TABS 1364250 AZITHROMYCIN Inactive PREDNISONE 20 MG TAB 2 tabs daily for 3 days, 1 tab daily for 3 days, 1/2 tab daily for 2 days PREDNISONE 20 MG TAB 138756 PREDNISONE Inactive PREDNISONE 20 MG TAB 2 tabs daily for 5 days, then 1 daily for 5 days, then 0.5 for 4 days PREDNISONE 20 MG TAB 672445 PREDNISONE Inactive AZITHROMYCIN 250 MG TABS 2 po qd x 1 day, then 1 po qd x 4 days AZITHROMYCIN 250 MG TABS 3245935 AZITHROMYCIN Inactive PREDNISONE 20 MG TAB 2 tabs daily for 3 days, 1 tab daily for 3 days, 1/2 tab daily for 2 days PREDNISONE 20 MG TAB 049284 PREDNISONE Inactive TRIAMCINOLONE ACETONIDE 0.1 % OINT Apply to affected areas TID for up to 2 weeks TRIAMCINOLONE ACETONIDE 0.1 % OINT 9146365 TRIAMCINOLONE ACETONIDE Inactive Immunizations Vaccine Administration Date [...] Panel - Chemistry sodium, serum 137 mmol/L 711-834 2894/06/06 carbon dioxide, venous blood 24.9 mmol/L 21.0-32.0 [...] Panel - Chemistry sodium, serum 139 mmol/L 790-971 9326/03/17 carbon dioxide, venous blood 29.0 mmol/L 21.0-32.0 [...] 8.5 % 4.3-6.0 sodium, serum 137 mmol/L 172-413 7649/02/12 potassium, serum 5.1 mmol/L 3.5-5.2 chloride, serum 103 mmol/L 98-107 carbon dioxide, venous blood 24.4 mmol/L 21.0-32.0 blood glucose 261 mg/dL 65-110 calcium, serum 9.0 mg/dL 8.5-10.1 urea nitrogen, blood 44 mg/dL 7-18 creatinine, serum 2.37 mg/dL 0.55-1.30 Lab Report: Uric Acid - Chemistry uric acid, serum 6.3 mg/dL 2.6-7.2 Encounters Code Encounter Date Provider Facility CPT-86464 Level 3 Est. Patient 09:18:25 CDT Simon Castillo MD [facility] CPT-69524 Level 4 Est. Patient 11:51:23 CDT Simon Castillo MD [facility] CPT-79333 Level 4 Est. Patient 14:32:04 CDT Neto Oshea DO [facility] CPT-41777 Level 3 Est. Patient 08:41:43 CDT Giles Tatum APRN [facility] CPT-26643 Level 3 Est. Patient 08:40:53 CDT 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 [facility] CPT-53186 Level 3 Est. Patient 08:36:52 CDT Jonathanmeli Nashtico [facility] CPT-99763 Level 3 Est. Patient 09:08:44 CDT Giles Nashtico [facility] CPT-46818 Level 4 Est. Patient 09:17:32 EXTRUDER Simon Castillo MD [facility] CPT-48925 Level 3 Est. Patient 11:22:22 EXTRUDER Simon Castillo MD [facility] CPT-17752 Level 3 Est. Patient 09:02:14 CDT Simon Castillo MD [facility] CPT-65909 Level 4 Est. Patient 08:47:25 CDT Simon Castillo MD [facility] CPT-87632 Level 4 Est. Patient 10:17:25 CDT Simon Castillo MD [facility] CPT-12142 Level 4 Est. Patient 10:10:09 EXTRUDER Simon Castillo MD [facility] CPT-96089 Level 4 Est. Patient 11:48:19 CDT Simon Castillo MD [facility] CPT-65437 Level 4 Est. Patient 08:59:29 CDT Simon Castillo MD [facility] CPT-80001 Level 4 Est. Patient 10:52:51 EXTRUDER Simon Castillo MD [facility] CPT-22322 Level 4 Est. Patient 11:50:30 CDT Simon Castillo MD [facility] CPT-03043 Level 4 Est. Patient 09:54:46 CDT Simon Castillo MD [facility] CPT-13797 Level 3 Est. Patient 11:10:14 CDT Simon Castillo MD [facility] CPT-47396 Level 4 Est. Patient 09:44:02 CDT Simon Castillo MD [facility] CPT-33270 Level 3 Est. Patient 09:27:48 CDT Simon Castillo MD [facility] CPT-26132 Level 3 Est. Patient 09:58:06 EXTRUDER Simon Castillo MD [facility] CPT-57097 Level 3 Est. Patient 09:51:35 CDT Simon Castillo MD [facility] Procedures Code Procedure Name Date Entry Date Standard Description CPT-53443 First Vx - Ix admin for Medicare patients 17:33:39 CDT CPT-77886 Fluzone High-Dose Intramuscular Suspension 17:33:39 CDT CPT-G0438 Initial Annual Wellness Exam 08:57:30 CDT CPT-13690 Chest 2V Frontal and Lat - XRAY USE ONLY 09:00:14 CDT CPT-54191 Venipuncture Draw Fee 13:33:02 CDT CPT-66226 Bone Density 09:37:49 EXTRUDER CPT-31336 Fluzone High Dose 17:20:42 CDT CPT-95781 Prevnar 13 17:20:42 CDT CPT-05872 Administration 2+ single or combination vaccines inc oral 17:20:42 CDT CPT-53563 Administration single or combination vaccine inc oral 17 :20:42 CDT CPT-50740 Hand comp min 3V 09:24:38 CDT CPT-94401 Venipuncture Draw Fee 08:07:29 EXTRUDER CPT-89968 Venipuncture Draw Fee 09:02:51 EXTRUDER CPT-86138 Venipuncture Draw Fee 12:45:08 EXTRUDER CPT-57071 Venipuncture Draw Fee 09:25:31 CDT CPT-G0008 Administration of Influenza Virus Vaccine 14:41:29 CDT CPT-05228 Fluzone High-Dose Intramuscular Suspension 14:41:29 CDT CPT-Cryo Cryotherapy 11:48:20 CDT CPT-01709 EKG Trac and Interp 09:21:58 CDT CPT-11998 Chest 2V Frontal and Lat 09:21:58 CDT CPT-Cryo Cryotherapy 10:54:51 EXTRUDER CPT-45462 Administration 2+ single or combination vaccines inc oral 10:42:19 CDT CPT-40645 Administration single or combination vaccine inc oral 10 :42:19 CDT CPT-30892 Pneumovax 10:42:19 CDT CPT-73162 Influenza High Dose age 65+ 10:42:19 CDT CPT-57941 Administration single or combination vaccine inc oral 13 :18:54 CDT CPT-50166 Influenza High Dose age 65+ 13:18:54 CDT CPT-69516 Venipuncture Draw Fee 11:53:16 CDT CPT-00617 LS spine comp w obliq 11:03:13 CDT CPT-Cryo Cryotherapy 08:27:16 EXTRUDER CPT-62773 Administration single or combination vaccine inc oral 10 :56:34 CDT CPT-55299 Influenza High Dose age 65+ 10:56:34 CDT
--- OUTSIDE RECORDS SUMMARY | 2018-03-31 16:33 | XMS REPORT ---
Author Author Admin, E Organization [employer] Address Unknown Phone Unavailable Allergies, Adverse Reactions, [...] unspecified CHRONIC KIDNEY DISEASE UNSPECIFIED 585.9 Inactive Smion Castillo MD Chronic kidney disease, unspecified Chronic [...] bilateral ICD-729.5 Kerry Castillo MD Steroid use, wellness program coordinator ICD-V58.65 Kerry Castillo MD Hand pain, bilateral [...] MG ORAL TABS 1 po qd BUMETANIDE 49482113834 Active Simon Castillo MD Active AUGMENTIN 875-125 MG ORAL TABS 1 po BID x 10 days AMOXICILLIN-POT CLAVULANATE 19734334684 Active Simon Castillo MD Active PIOGLITAZONE HCL 30 MG ORAL TABS 1 po qd PIOGLITAZONE HCL 91559976572 Active Simon Castillo MD Active GLIMEPIRIDE 4 MG ORAL TABS 1 po BID GLIMEPIRIDE 51519399622 Active Simon Castillo MD Active ASPIRIN EC 81 MG ORAL TBEC 1 po qd ASPIRIN 04914968835 Active Simon Castillo MD Active CLOTRIMAZOLE 1 % EXT CREA Apply to affected area of feet twice daily PRN Rash CLOTRIMAZOLE 61120316111 No Longer Active Simon Castillo MD Active PREDNISONE 5 MG TAB 1 po BID PREDNISONE 23581242731 Active Simon Castillo MD Active FISH OIL 1000 MG CPDR 1 po BID OMEGA-3 FATTY ACIDS 67685981802 Active Simon Castillo MD Active LISINOPRIL 10 MG TABS 1 p qd LISINOPRIL 75138988280 Active Simon Castillo MD Active CLARITIN 10 MG TAB 1 tablet by mouth daily as needed for allergies LORATADINE 06618816458 No Longer Active Simon Castillo MD Active TRIAMCINOLONE ACETONIDE 0.1 % OINT Apply to affected areas TID for up to 2 weeks TRIAMCINOLONE ACETONIDE 74585998845 No Longer Active Simon Castillo MD Active LASIX 20 MG TAB 1 tablet by mouth daily x 2 days FUROSEMIDE 89518387970 No Longer Active Simon Castillo MD Active SULFASALAZINE 500 MG ORAL TBEC 2 tabs BID SULFASALAZINE 08679017796 No Longer Active Neto Oshea DO Active PREDNISONE 20 MG TAB 2 tabs daily for 3 days, 1 tab daily for 3 days, 1/2 tab daily for 2 days PREDNISONE 09170013207 No Longer Active 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 DANCE ENTERTAINER Active PREDNISONE 20 MG TAB 1 tablet daily for airway inflammation 02/25 PREDNISONE 02501264591 No Longer Active 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 DANCE ENTERTAINER Active AZITHROMYCIN 250 MG TABS 2 po qd x 1 day, then 1 po qd x 4 days AZITHROMYCIN 55271302894 No Longer Active 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 DANCE ENTERTAINER Active HYDROCODONE-ACETAMINOPHEN 5-325 MG TABS 1 tab by mouth 8 hours as needed for pain HYDROCODONE-ACETAMINOPHEN 01457603410 Active Simon Castillo MD Active TRAMADOL HCL 50 MG TABS 1 po q6hr PRN Pain TRAMADOL HCL 36767046027 No Longer Active Simon Castillo MD Active PREDNISONE 5 MG TABS 1 po qod PREDNISONE 24045342573 No Longer Active Simon Castillo MD Active SYMBICORT 160-4.5 MCG/ACT AERO 2 puff BID BUDESONIDE- FORMOTEROL FUMARATE 32608886712 No Longer Active Simon Castillo MD Active FLONASE 50 MCG/ACT SUSP 2 puffs in each nostril daily FLUTICASONE PROPIONATE 48230232786 No Longer Active Simon Castillo MD Active PREDNISONE 20 MG TAB 2 tabs daily for 5 days, then 1 daily for 5 days PREDNISONE 76563688972 No Longer Active Simon Castillo MD Active PREDNISONE 20 MG TAB 2 tabs daily for 5 days, then 1 daily for 5 days, then 0.5 for 4 days PREDNISONE 37522442796 No Longer Active Simon Castillo MD Active PREDNISONE 20 MG TAB 2 tabs daily for 3 days, 1 tab daily for 3 days, 1/2 tab daily for 2 days PREDNISONE 01098298242 No Longer Active Simon Castillo MD Active AZITHROMYCIN 250 MG TABS 2 po qd x 1 day, then 1 po qd x 4 days AZITHROMYCIN 55120335703 No Longer Active Simon Castillo MD Active CARVEDILOL 6.25 MG TABS 1 po BID CARVEDILOL 88215761356 Active Simon Castillo MD Active LISINOPRIL-HYDROCHLOROTHIAZIDE 20-12.5 MG TABS 1/2 tab by mouth daily LISINOPRIL-HYDROCHLOROTHIAZIDE 78237242183 No Longer Active Simon Castillo MD Active TRAMADOL HCL 50 MG TABS 1-2 tablets every 6 hours as needed for pain TRAMADOL HCL 23937431564 Active Giles Tatum APRN Active PREDNISONE 5 MG TAB Take one po qod PREDNISONE 90065785115 No Longer Active Simon Castillo MD Active GLYBURIDE 5 MG TAB Take one by mouth daily GLYBURIDE 30802592591 No Longer Active Simon Castillo MD Active LEVAQUIN 750 MG TABS 1 po qod x 5 doses LEVOFLOXACIN 35853291110 No Longer Active Simon Castillo MD Active CETIRIZINE HCL 10 MG TABS 1 po qd as needed for allergies CETIRIZINE HCL 38246276879 No Longer Active Simon Castillo MD Active BILBERRY CAPS 1 tab daily BILBERRY (VACCINIUM MYRTILLUS) CAPS 14976066273 Active Simon Castillo MD Active ATENOLOL 50 MG TABS Take one by mouth daily ATENOLOL 47883629511 No Longer Active Simon Castillo MD Active FLONASE 50 MCG/ACT SUSP 2 puffs in each nostril daily FLUTICASONE PROPIONATE 13372740153 No Longer Active Simon Castillo MD Active GLYBURIDE 5 MG TAB Take one by mouth daily GLYBURIDE 53906586480 No Longer Active Simon Castillo MD Active SYMBICORT 80-4.5 MCG/ACT AERO 2 puffs twice a day BUDESONIDE-FORMOTEROL FUMARATE 43869904219 No Longer Active Simon Castillo MD Active PREDNISONE 20 MG TAB 2 tabs daily for 4 days, 1 tab daily for 4 days, 1/2 tab daily for 4 days PREDNISONE 67629437712 No Longer Active Simon Castillo MD Active AMOXICILLIN 500 MG CAPS 2 po BID x 10 days AMOXICILLIN 32181728231 No Longer Active Simon Castillo MD Active METFORMIN HCL 1000 MG TABS 1 by mounth twice a day METFORMIN HCL 80399941205 No Longer Active Simon Castillo MD Active LUTEIN-ZEAXANTHIN 6-1 MG TABS Take 2 by mouth daily LUTEIN-ZEAXANTHIN 81837589351 Active Simon Castillo MD Active IBUPROFEN 800 MG TABS Take 1 tab every 6 hrs prn IBUPROFEN 81135907496 No Longer Active Simon Castillo MD Active GLYBURIDE 2.5 MG TABS Take one by mouth daily GLYBURIDE 64247576326 No Longer Active Simon Castillo MD Active LANCETS MISC 2 qd LANCETS 60836318829 Active Pamela Conde Active ACACIA CONTOUR TEST STRP Use with testing twice daily GLUCOSE BLOOD 02088163687 Active Simon Castillo MD Active GLYBURIDE 2.5 MG TABS Take one by mouth daily GLYBURIDE 2.5 MG TABS 285605 GLYBURIDE Inactive PREDNISONE 20 MG TAB 2 tabs daily for 4 days, 1 tab daily for 4 days, 1/2 tab daily for 4 days PREDNISONE 20 MG TAB 948957 PREDNISONE Inactive SYMBICORT 80-4.5 MCG/ACT AERO 2 puffs twice a day SYMBICORT 80-4.5 MCG/ACT AERO BUDESONIDE-FORMOTEROL FUMARATE Inactive FLONASE 50 MCG/ACT SUSP 2 puffs in each nostril daily FLONASE 50 MCG/ACT SUSP 0273410 FLUTICASONE PROPIONATE Inactive ATENOLOL 50 MG TABS Take one by mouth daily ATENOLOL 50 MG TABS 940723 ATENOLOL Inactive CETIRIZINE HCL 10 MG TABS 1 po qd as needed for allergies CETIRIZINE HCL 10 MG TABS 8713850 CETIRIZINE HCL Inactive LEVAQUIN 750 MG TABS 1 po qod x 5 doses LEVAQUIN 750 MG TABS 367157 LEVOFLOXACIN Inactive GLYBURIDE 5 MG TAB Take one by mouth daily GLYBURIDE 5 MG TAB 481941 GLYBURIDE Inactive PREDNISONE 5 MG TAB Take one po qod PREDNISONE 5 MG TAB 802037 PREDNISONE Inactive PREDNISONE 20 MG TAB 2 tabs daily for 5 days, then 1 daily for 5 days PREDNISONE 20 MG TAB 959487 PREDNISONE Inactive FLONASE 50 MCG/ACT SUSP 2 puffs in each nostril daily FLONASE 50 MCG/ACT SUSP 5885364 FLUTICASONE PROPIONATE Inactive SYMBICORT 160-4.5 MCG/ACT AERO 2 puff BID SYMBICORT 160-4.5 MCG/ACT AERO BUDESONIDE-FORMOTEROL FUMARATE Inactive PREDNISONE 5 MG TABS 1 po qod PREDNISONE 5 MG TABS 792588 PREDNISONE Inactive PREDNISONE 20 MG TAB 1 tablet daily for airway inflammation 02/25 PREDNISONE 20 MG TAB 730331 PREDNISONE Inactive SULFASALAZINE 500 MG ORAL TBEC 2 tabs BID SULFASALAZINE 500 MG ORAL [facility] 331083 SULFASALAZINE Inactive LASIX 20 MG TAB 1 tablet by mouth daily x 2 days LASIX 20 MG TAB 720310 FUROSEMIDE Inactive CLARITIN 10 MG TAB 1 tablet by mouth daily as needed for allergies CLARITIN 10 MG TAB 877462 LORATADINE Inactive CLOTRIMAZOLE 1 % EXT CREA Apply to affected area of feet twice daily PRN Rash CLOTRIMAZOLE 1 % EXT CREA 686110 CLOTRIMAZOLE Inactive AMOXICILLIN 500 MG CAPS 2 po BID x 10 days AMOXICILLIN 500 MG CAPS 602602 AMOXICILLIN Inactive GLYBURIDE 5 MG TAB Take one by mouth daily GLYBURIDE 5 MG TAB 528525 GLYBURIDE Inactive AZITHROMYCIN 250 MG TABS 2 po qd x 1 day, then 1 po qd x 4 days AZITHROMYCIN 250 MG TABS 8602385 AZITHROMYCIN Inactive PREDNISONE 20 MG TAB 2 tabs daily for 3 days, 1 tab daily for 3 days, 1/2 tab daily for 2 days PREDNISONE 20 MG TAB 329826 PREDNISONE Inactive PREDNISONE 20 MG TAB 2 tabs daily for 5 days, then 1 daily for 5 days, then 0.5 for 4 days PREDNISONE 20 MG TAB 661419 PREDNISONE Inactive AZITHROMYCIN 250 MG TABS 2 po qd x 1 day, then 1 po qd x 4 days AZITHROMYCIN 250 MG TABS 1483855 AZITHROMYCIN Inactive PREDNISONE 20 MG TAB 2 tabs daily for 3 days, 1 tab daily for 3 days, 1/2 tab daily for 2 days PREDNISONE 20 MG TAB 737049 PREDNISONE Inactive TRIAMCINOLONE ACETONIDE 0.1 % OINT Apply to affected areas TID for up to 2 weeks TRIAMCINOLONE ACETONIDE 0.1 % OINT 9914584 TRIAMCINOLONE ACETONIDE Inactive Immunizations Vaccine Administration Date [...] Peptide - Chemistry sodium, serum 142 mmol/L 224-678 6431/07/18 potassium, serum 5.0 mmol/L 3.5-5.2 chloride, serum [...] Panel - Chemistry sodium, serum 140 mmol/L 031-363 5684/07/13 carbon dioxide, venous blood 23.7 mmol/L 21.0-32.0 [...] Panel - Chemistry cholesterol, serum 126 mg/dL 234-096 2793/02/07 triglyceride, serum, fasting 83 mg/dL 30-200 HDL cholesterol, serum 70 mg/dL 32-96 LDL cholesterol, serum 39 mg/dL 0-130 hemoglobin A1C, blood, as % of total hemoglobin 8.3 % 4.3-6.0 sodium, serum 141 mmol/L 754-253 2532/02/07 carbon dioxide, venous blood 26.0 mmol/L 21.0-32.0 [...] 0.00-1.00 Encounters Code Encounter Date Provider Facility CPT-86653 Level 4 Est. Patient 08:48:38 CDT Simon Castillo MD [facility] CPT-83302 Level 4 Est. Patient 09:54:08 CDT Simon Castillo MD [facility] CPT-33551 Level 4 Est. Patient 16:11:23 CDT Simon Castillo MD [facility] CPT-70957 Level 4 Est. 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 Patient 09:18:25 CDT Simon Castillo MD [facility] CPT-28087 Level 4 Est. Patient 11:51:23 CDT Simon Castillo MD [facility] CPT-35888 Level 4 Est. Patient 14:32:04 CDT Neto Oshea DO [facility] CPT-57178 Level 3 Est. Patient 08:41:43 CDT Jonathanmeli Lolyalejandrina [facility] CPT-66499 Level 3 Est. Patient 08:40:53 CDT Jonathanllina Nashzell [facility] CPT-15905 Level 3 Est. Patient 08:36:52 CDT Giles Salcidol [facility] CPT-92044 Level 3 Est. Patient 09:08:44 CDT Jonathanviratriston Salcidol [facility] CPT-28128 Level 4 Est. 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 Patient 09:02:14 CDT Simon Castillo MD [facility] CPT-35566 Level 4 Est. Patient 08:47:25 CDT Simon Castillo MD [facility] CPT-65543 Level 4 Est. Patient 10:17:25 CDT Simon Castillo MD [facility] CPT-49289 Level 4 Est. 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 Patient 11:48:19 CDT Simon Castillo MD [facility] CPT-82686 Level 4 Est. Patient 08:59:29 CDT Simon Castillo MD [facility] CPT-16153 Level 4 Est. 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 Patient 11:50:30 CDT Simon Castillo MD [facility] CPT-45991 Level 4 Est. Patient 09:54:46 CDT Simon Castillo MD [facility] CPT-33624 Level 3 Est. Patient 11:10:14 CDT Simon Castillo MD [facility] CPT-76172 Level 4 Est. Patient 09:44:02 CDT Simon Castillo MD [facility] CPT-46128 Level 3 Est. Patient 09:27:48 CDT Simon Castillo MD [facility] CPT-26047 Level 3 Est. 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 Patient 09:51:35 CDT Simon Castillo MD [facility] Procedures Code Procedure Name Date Entry Date Standard Description CPT-G0439 Subsequent Annual Wellness Exam 09:41:17 CDT CPT-04400 Lipid - LAB USE ONLY 17:15:33 CDT CPT-89016 HGBA1C - LAB USE ONLY 17:15:33 CDT CPT-28521 CMP - LAB USE ONLY 17:15:33 CDT CPT-23923 Venipuncture Draw Fee 17:15:33 CDT CPT-TCM Transitional Care Mgmt-High 11:01:28 BORING MACHINE OPERATOR DOUBLE END CPT-79708 First Vx - Ix admin for Medicare patients 17:33:39 CDT CPT-31501 Fluzone High-Dose Intramuscular Suspension 17:33:39 CDT CPT-G0438 Initial Annual Wellness Exam 08:57:30 CDT CPT-05797 Chest 2V Frontal and Lat - XRAY USE ONLY 09:00:14 CDT CPT-39036 Venipuncture Draw Fee 13:33:02 CDT CPT-20046 Bone Density 09:37:49 BORING MACHINE 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 END CPT-97261 Fluzone High Dose 17:20:42 CDT CPT-37403 Prevnar 13 17:20:42 CDT CPT-14777 Administration 2+ single or combination vaccines inc oral 17:20:42 CDT CPT-48917 Administration single or combination vaccine inc oral 17 :20:42 CDT CPT-85450 Hand comp min 3V 09:24:38 CDT CPT-14369 Venipuncture Draw Fee 08:07:29 BORING MACHINE OPERATOR DOUBLE END CPT-50715 Venipuncture Draw Fee 09:02:51 BORING MACHINE OPERATOR DOUBLE END CPT-72301 Venipuncture Draw Fee 12:45:08 BORING MACHINE OPERATOR DOUBLE END CPT-75254 Venipuncture Draw Fee 09:25:31 CDT CPT-G0008 Administration of Influenza Virus Vaccine 14:41:29 CDT CPT-34986 Fluzone High-Dose Intramuscular Suspension 14:41:29 CDT CPT-Cryo Cryotherapy 11:48:20 CDT CPT-33227 EKG Trac and Interp 09:21:58 CDT CPT-41325 Chest 2V Frontal and Lat 09:21:58 CDT CPT-Cryo Cryotherapy 10:54:51 BORING MACHINE OPERATOR DOUBLE END CPT-01628 Administration 2+ single or combination vaccines inc oral 10:42:19 CDT CPT-28695 Administration single or combination vaccine inc oral 10 :42:19 CDT CPT-62981 Pneumovax 10:42:19 CDT CPT-01648 Influenza High Dose age 65+ 10:42:19 CDT CPT-21612 Administration single or combination vaccine inc oral 13 :18:54 CDT CPT-80451 Influenza High Dose age 65+ 13:18:54 CDT CPT-12064 Venipuncture Draw Fee 11:53:16 CDT CPT-16445 LS spine comp w obliq 11:03:13 CDT CPT-Cryo Cryotherapy 08:27:16 BORING MACHINE OPERATOR DOUBLE END CPT-78159 Administration single or combination vaccine inc oral 10 :56:34 CDT CPT-38922 Influenza High Dose age 65+ 10:56:34 CDT
--- OUTSIDE RECORDS SUMMARY | 2018-03-31 16:34 | XMS REPORT | Clinical Summary ---
Author Author Admin, E Organization [facility] Address Unknown Phone Unavailable Allergies, Adverse Reactions, [...] 466.0 Active Simon Castillo MD Acute bronchitis Dyspnea on exertion 786.09 Active Simon Castillo MD Other dyspnea and respiratory abnormality Chest pain, atypical 786.59 Active Simon Castillo MD Other chest pain Carbuncle 680.9 Active Simon Castillo MD Carbuncle and furuncle of unspecified site Anemia 285.9 Active Dolly Wong RMA Anemia, unspecified Heart failure 428.9 Active Simon Castillo MD Heart failure, unspecified FH DIABETES ICD-V18.0 Inactive Simon Castillo [...] bilateral ICD-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 Kerry Castillo MD Steroid use, snf ICD-V58.65 Kerry Castillo MD Hand pain, bilateral [...] Dyspnea ICD-786.09 Inactive Simon Castillo MD 2016 Syncope and collapse ICD-780.2 Inactive Simon Castillo MD abrasion, face, infected ICD-910.1 Inactive Simon Castillo MD Other injury of unspecified body region, initial encounter ICD-879.8 Inactive Simon Castillo MD Lesion of skin of face ICD-709.9 Inactive Simon Castillo MD Medication List Medication Instructions Start Date Stop Date Generic Name NDC Status Provider Patient Instruction FUROSEMIDE 20 MG ORAL TABLET 1 po qd FUROSEMIDE 95553644280 Active Simon Castillo MD Active BACTRIM DS 800-160 MG ORAL TABLET 1 po BID x 7 days SULFAMETHOXAZOLE-TRIMETHOPRIM 45681129651 Active Simon Castillo MD Active AZITHROMYCIN 250 MG ORAL TABLET 2 po qd x 1, then 1 po qd x 4 AZITHROMYCIN 61258936063 No Longer Active Simon Castillo MD Active PROMETHAZINE-CODEINE 6.25-10 MG/5ML ORAL SYRUP 5ml po qHS PRN Cough PROMETHAZINE-CODEINE 90360689105 No Longer Active Simon Castillo MD Active SINGULAIR 10 MG ORAL TABLET 1 po qd PRN Asthma/Allergies MONTELUKAST SODIUM 89800284874 Active Simon Castillo MD Active PREDNISONE 20 MG ORAL TABLET 2 po qd x 5 days PREDNISONE 68764965183 No Longer Active Simon Castillo MD Active VIAGRA 100 MG ORAL TABLET 0.5 to 1 po qd PRN Erectile dysfunction SILDENAFIL CITRATE 45574056498 Active Simon Castillo MD Active LUTEIN-ZEAXANTHIN 6-1 MG ORAL TABLET 2 po qd LUTEIN- ZEAXANTHIN 97586779721 Active Simon Castillo MD Active BILBERRY CAPSULE 1 po qd BILBERRY (VACCINIUM MYRTILLUS) CAPS 60399298796 Active Simon Castillo MD Active TRAMADOL HCL 50 MG ORAL TABLET 1-2 tablets every 6 hours as needed for pain TRAMADOL HCL 48554431386 No Longer Active Simon Castillo MD Active HYDROCODONE-ACETAMINOPHEN 5-325 MG ORAL TABLET 1 tab by mouth 8 hours as needed for pain HYDROCODONE-ACETAMINOPHEN 66686899912 No Longer Active Simon Castillo MD Active BUMETANIDE 0.5 MG ORAL TABLET 1 po qd BUMETANIDE 70455891854 Active Simon Castillo MD Active AUGMENTIN 875-125 MG ORAL TABLET 1 po BID x 10 days AMOXICILLIN-POT CLAVULANATE 18470574256 No Longer Active Simon Castillo MD Active PIOGLITAZONE HCL 30 MG ORAL TABLET 1 po qd PIOGLITAZONE HCL 64984709365 Active Simon Castillo MD Active GLIMEPIRIDE 4 MG ORAL TABLET 1 po BID GLIMEPIRIDE 36989481301 Active Simon Castillo MD Active ASPIRIN EC 81 MG ORAL TABLET DELAYED RELEASE 1 po qd ASPIRIN 98938342167 Active Simon Castillo MD Active CLOTRIMAZOLE 1 % EXTERNAL CREAM Apply to affected area of feet twice daily PRN Rash CLOTRIMAZOLE 10129223785 No Longer Active Simon Castillo MD Active PREDNISONE 5 MG ORAL TABLET 1 po BID PREDNISONE 54696237913 Active Dolly MCDERMOTT Active FISH OIL 1000 MG ORAL CAPSULE DELAYED RELEASE 1 po BID OMEGA- 3 FATTY ACIDS 36062789944 Active Simon Castillo MD Active LISINOPRIL 10 MG ORAL TABLET 1 p qd LISINOPRIL 16512762561 Active Simon Castillo MD Active CLARITIN 10 MG ORAL TABLET 1 tablet by mouth daily as needed for allergies LORATADINE 44878220769 No Longer Active Simon Castillo MD Active TRIAMCINOLONE ACETONIDE 0.1 % EXTERNAL OINTMENT Apply to affected areas TID for up to 2 weeks TRIAMCINOLONE ACETONIDE 93471381966 No Longer Active Simon Castillo MD Active LASIX 20 MG ORAL TABLET 1 tablet by mouth daily x 2 days FUROSEMIDE 94539451968 No Longer Active Simon Castillo MD Active SULFASALAZINE 500 MG ORAL TABLET DELAYED RELEASE 2 tabs BID 02/26 SULFASALAZINE 36151012914 No Longer Active Neto Oshea DO Active PREDNISONE 20 MG ORAL TABLET 2 tabs daily for 3 days, 1 tab daily for 3 days, 1/2 tab daily for 2 days PREDNISONE 66854175423 No Longer Active Jillina Fratico HEMPHILL Active PREDNISONE 20 MG ORAL TABLET 1 tablet daily for airway inflammation PREDNISONE 85635390558 No Longer Active 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 VETERINARY PHYSIOLOGIST Active AZITHROMYCIN 250 MG ORAL TABLET 2 po qd x 1 day, then 1 po qd x 4 days 01/28 AZITHROMYCIN 01584617771 No Longer Active Jillina Fraamayal VETERINARY PHYSIOLOGIST Active TRAMADOL HCL 50 MG ORAL TABLET 1 po q6hr PRN Pain TRAMADOL HCL 46762985009 No Longer Active Simon Castillo MD Active PREDNISONE 5 MG ORAL TABLET 1 po qod PREDNISONE 92837665414 No Longer Active Simon Castillo MD Active SYMBICORT 160-4.5 MCG/ACT INHALATION AEROSOL 2 puff BID BUDESONIDE-FORMOTEROL FUMARATE 29767052977 No Longer Active Simon Castillo MD Active FLONASE 50 MCG/ACT NASAL SUSPENSION 2 puffs in each nostril daily FLUTICASONE PROPIONATE 06892019217 No Longer Active Simon Castillo MD Active PREDNISONE 20 MG ORAL TABLET 2 tabs daily for 5 days, then 1 daily for 5 days PREDNISONE 35912709865 No Longer Active Simon Castillo MD Active PREDNISONE 20 MG ORAL TABLET 2 tabs daily for 5 days, then 1 daily for 5 days , then 0.5 for 4 days PREDNISONE 00445720639 No Longer Active Simon Castillo MD Active PREDNISONE 20 MG ORAL TABLET 2 tabs daily for 3 days, 1 tab daily for 3 days, 1/2 tab daily for 2 days PREDNISONE 57934309175 No Longer Active Simon Castillo MD Active AZITHROMYCIN 250 MG ORAL TABLET 2 po qd x 1 day, then 1 po qd x 4 days 03/16 AZITHROMYCIN 46749703861 No Longer Active Simon Castillo MD Active CARVEDILOL 6.25 MG ORAL TABLET 1 po BID CARVEDILOL 54884833352 Active Simon Castillo MD Active LISINOPRIL-HYDROCHLOROTHIAZIDE 20-12.5 MG ORAL TABLET 1/2 tab by mouth daily LISINOPRIL-HYDROCHLOROTHIAZIDE 86060889489 No Longer Active Simon Castillo MD Active PREDNISONE 5 MG ORAL TABLET Take one po qod PREDNISONE 63305583646 No Longer Active Simon Castillo MD Active GLYBURIDE 5 MG ORAL TABLET Take one by mouth daily GLYBURIDE 48474310311 No Longer Active Simon Castillo MD Active LEVAQUIN 750 MG ORAL TABLET 1 po qod x 5 doses LEVOFLOXACIN 99021520404 No Longer Active Simon Castillo MD Active CETIRIZINE HCL 10 MG ORAL TABLET 1 po qd as needed for allergies CETIRIZINE HCL 05020739217 No Longer Active Simon Castillo MD Active ATENOLOL 50 MG ORAL TABLET Take one by mouth daily ATENOLOL 57069239263 No Longer Active Simon Castillo MD Active FLONASE 50 MCG/ACT NASAL SUSPENSION 2 puffs in each nostril daily FLUTICASONE PROPIONATE 57002215012 No Longer Active Simon Castillo MD Active GLYBURIDE 5 MG ORAL TABLET Take one by mouth daily GLYBURIDE 17668219639 No Longer Active Simon Castillo MD Active SYMBICORT 80-4.5 MCG/ACT INHALATION AEROSOL 2 puffs twice a day BUDESONIDE-FORMOTEROL FUMARATE 24956029023 No Longer Active Simon Castillo MD Active PREDNISONE 20 MG ORAL TABLET 2 tabs daily for 4 days, 1 tab daily for 4 days, 1/2 tab daily for 4 days PREDNISONE 99121940623 No Longer Active Simon Castillo MD Active AMOXICILLIN 500 MG ORAL CAPSULE 2 po BID x 10 days AMOXICILLIN 41444429620 No Longer Active Simon Castillo MD Active METFORMIN HCL 1000 MG ORAL TABLET 1 by mounth twice a day METFORMIN HCL 46044635095 No Longer Active Simon Castillo MD Active IBUPROFEN 800 MG ORAL TABLET Take 1 tab every 6 hrs prn IBUPROFEN 85940597442 No Longer Active Simon Castillo MD Active GLYBURIDE 2.5 MG ORAL TABLET Take one by mouth daily GLYBURIDE 97512731758 No Longer Active Simon Castillo MD Active LANCETS 2 qd LANCETS 33161023228 Active Pamela Conde Active ACACIA CONTOUR TEST IN VITRO STRIP Use with testing twice daily GLUCOSE BLOOD 86662659394 Active Simon Castillo MD Active GLYBURIDE 2.5 MG ORAL TABLET Take one by mouth daily GLYBURIDE 2.5 MG ORAL TABLET 433053 GLYBURIDE Inactive PREDNISONE 20 MG ORAL TABLET 2 tabs daily for 4 days, 1 tab daily for 4 days, 1/2 tab daily for 4 days PREDNISONE 20 MG ORAL TABLET 740848 PREDNISONE Inactive SYMBICORT 80-4.5 MCG/ACT INHALATION AEROSOL 2 puffs twice a day SYMBICORT 80-4.5 MCG/ACT INHALATION AEROSOL BUDESONIDE- FORMOTEROL FUMARATE Inactive FLONASE 50 MCG/ACT NASAL SUSPENSION 2 puffs in each nostril daily FLONASE 50 MCG/ACT NASAL SUSPENSION 6433131 FLUTICASONE PROPIONATE Inactive ATENOLOL 50 MG ORAL TABLET Take one by mouth daily ATENOLOL 50 MG ORAL TABLET 468592 ATENOLOL Inactive CETIRIZINE HCL 10 MG ORAL TABLET 1 po qd as needed for allergies CETIRIZINE HCL 10 MG ORAL TABLET 1488622 CETIRIZINE HCL Inactive LEVAQUIN 750 MG ORAL TABLET 1 po qod x 5 doses LEVAQUIN 750 MG ORAL TABLET 903213 LEVOFLOXACIN Inactive GLYBURIDE 5 MG ORAL TABLET Take one by mouth daily GLYBURIDE 5 MG ORAL TABLET 115900 GLYBURIDE Inactive PREDNISONE 5 MG ORAL TABLET Take one po qod PREDNISONE 5 MG ORAL TABLET 805265 PREDNISONE Inactive PREDNISONE 20 MG ORAL TABLET 2 tabs daily for 5 days, then 1 daily for 5 days PREDNISONE 20 MG ORAL TABLET 981827 PREDNISONE Inactive FLONASE 50 MCG/ACT NASAL SUSPENSION 2 puffs in each nostril daily FLONASE 50 MCG/ACT NASAL SUSPENSION 3060921 FLUTICASONE PROPIONATE Inactive SYMBICORT 160-4.5 MCG/ACT INHALATION AEROSOL 2 puff BID SYMBICORT 160-4.5 MCG/ACT INHALATION AEROSOL BUDESONIDE-FORMOTEROL FUMARATE Inactive PREDNISONE 5 MG ORAL TABLET 1 po qod PREDNISONE 5 MG ORAL TABLET 342522 PREDNISONE Inactive PREDNISONE 20 MG ORAL TABLET 1 tablet daily for airway inflammation PREDNISONE 20 MG ORAL TABLET 434445 PREDNISONE Inactive SULFASALAZINE 500 MG ORAL TABLET DELAYED RELEASE 2 tabs BID 02/26 SULFASALAZINE 500 MG ORAL TABLET DELAYED RELEASE 346045 SULFASALAZINE Inactive LASIX 20 MG ORAL TABLET 1 tablet by mouth daily x 2 days LASIX 20 MG ORAL TABLET 251592 FUROSEMIDE Inactive CLARITIN 10 MG ORAL TABLET 1 tablet by mouth daily as needed for allergies CLARITIN 10 MG ORAL TABLET 592779 LORATADINE Inactive CLOTRIMAZOLE 1 % EXTERNAL CREAM Apply to affected area of feet twice daily PRN Rash CLOTRIMAZOLE 1 % EXTERNAL CREAM 352037 CLOTRIMAZOLE Inactive HYDROCODONE-ACETAMINOPHEN 5-325 MG ORAL TABLET 1 tab by mouth 8 hours as needed for pain HYDROCODONE-ACETAMINOPHEN 5-325 MG ORAL TABLET 802587 HYDROCODONE-ACETAMINOPHEN Inactive TRAMADOL HCL 50 MG ORAL TABLET 1-2 tablets every 6 hours as needed for pain TRAMADOL HCL 50 MG ORAL TABLET 514455 TRAMADOL HCL Inactive PROMETHAZINE-CODEINE 6.25-10 MG/5ML ORAL SYRUP 5ml po qHS PRN Cough PROMETHAZINE-CODEINE 6.25-10 MG/5ML ORAL SYRUP 099553 PROMETHAZINE-CODEINE Inactive AZITHROMYCIN 250 MG ORAL TABLET 2 po qd x 1, then 1 po qd x 4 AZITHROMYCIN 250 MG ORAL TABLET 558638 AZITHROMYCIN Inactive AMOXICILLIN 500 MG ORAL CAPSULE 2 po BID x 10 days AMOXICILLIN 500 MG ORAL CAPSULE 849746 AMOXICILLIN Inactive GLYBURIDE 5 MG ORAL TABLET Take one by mouth daily GLYBURIDE 5 MG ORAL TABLET 598025 GLYBURIDE Inactive AZITHROMYCIN 250 MG ORAL TABLET 2 po qd x 1 day, then 1 po qd x 4 days 03/16 AZITHROMYCIN 250 MG ORAL TABLET 151995 AZITHROMYCIN Inactive PREDNISONE 20 MG ORAL TABLET 2 tabs daily for 3 days, 1 tab daily for 3 days, 1/2 tab daily for 2 days PREDNISONE 20 MG ORAL TABLET 532527 PREDNISONE Inactive PREDNISONE 20 MG ORAL TABLET 2 tabs daily for 5 days, then 1 daily for 5 days , then 0.5 for 4 days PREDNISONE 20 MG ORAL TABLET 188956 PREDNISONE Inactive AZITHROMYCIN 250 MG ORAL TABLET 2 po qd x 1 day, then 1 po qd x 4 days 01/28 AZITHROMYCIN 250 MG ORAL TABLET 564344 AZITHROMYCIN Inactive PREDNISONE 20 MG ORAL TABLET 2 tabs daily for 3 days, 1 tab daily for 3 days, 1/2 tab daily for 2 days PREDNISONE 20 MG ORAL TABLET 651217 PREDNISONE Inactive TRIAMCINOLONE ACETONIDE 0.1 % EXTERNAL OINTMENT Apply to affected areas TID for up to 2 weeks TRIAMCINOLONE ACETONIDE 0.1 % EXTERNAL OINTMENT 1246930 TRIAMCINOLONE ACETONIDE Inactive AUGMENTIN 875-125 MG ORAL TABLET 1 po BID x 10 days AUGMENTIN 875-125 MG ORAL TABLET 534640 AMOXICILLIN-POT CLAVULANATE Inactive PREDNISONE 20 MG ORAL TABLET 2 po qd x 5 days PREDNISONE 20 MG ORAL TABLET 368377 PREDNISONE Inactive Immunizations Vaccine Administration Date Value Standard Description pneumococcal immunization administered Pneumovax 23 [CVX33] pneumococcal polysaccharide vaccine, 23 valent Vital Signs Date Name Value Unit Range Description blood pressure, diastolic 58 mm[Hg] BP castillo blood pressure, systolic 106 mm[Hg] BP sys height E&M 66.5 [in_us] Bdy height pulse rate E&M 68 /min Heart rate temperature E&M 97.3 [degF] Body temperature weight E&M 225.31 [lb_av] Weight Measured blood pressure, diastolic 61 mm[Hg] BP castillo [...] temperature weight E&M 215.5 [lb_av] Weight Measured Diagnostic Results Date Name Value Unit Range Description Chart Maintenance: Outside labs entered on flowsheet - Chemistry sodium, serum 135 mmol/L potassium, serum 4.1 mmol/L blood glucose 317 mg/dL creatinine, serum 3.1 mg/dL aspartate aminotransferase (SGOT), serum 11 U/L alanine aminotransferase (SGPT), serum 11 U/L alkaline phosphatase, serum 80 U/L prostate specific antigen 1.45 ng/mL Chart Maintenance: Outside labs entered on flowsheet - Hematology hemoglobin, blood 12.0 g/dL Lab Report: B-Type Natriuretic Peptide, UADIP W/MICRO, [...] Peptide - Chemistry sodium, serum 142 mmol/L 257-438 8061/07/18 potassium, serum 5.0 mmol/L 3.5-5.2 chloride, serum [...] count 192 10^3/MM^3 10*3/mm3 142-424 Lab Report: CBC W/DIFF, Comp. Metabolic Panel - Chemistry sodium, serum 138 mmol/L 839-251 7430/06/04 carbon dioxide, venous blood 23.4 mmol/L 21.0-32.0 potassium, serum 5.3 mmol/L 3.5-5.2 chloride, serum 105 mmol/L 98-107 blood glucose 228 mg/dL 65-95 urea nitrogen, blood 78 mg/dL 7-18 creatinine, serum 3.76 mg/dL 0.60-1.30 alanine aminotransferase (SGPT), serum 18 U/L 12-78 aspartate aminotransferase (SGOT), serum 13 U/L 15-37 calcium, serum 8.9 mg/dL 8.5-10.1 bilirubin, serum, total 0.60 mg/dL 0.00-1.00 Lab Report: CBC W/DIFF, Comp. Metabolic Panel - Hematology leukocyte count, blood 9.0 10^3/MM^3 10*3/mm3 4.6-10.2 neutrophils as percent of blood leukocytes 74.8 % 42.2-75.2 monocytes as percent of blood leukocytes 7.5 % 1.7-9.3 lymphocytes as percent of blood leukocytes 15.5 % 20.5-51.1 erythrocyte (RBC) count 3.66 10^6/MM^3 10*6/mm3 4.50-6.50 hemoglobin, blood 11.1 g/dL 14.0-18.0 hematocrit, blood 34.6 % 40.0-54.0 mean corpuscular volume, RBC 95 fL 80-97 mean corpuscular hemoglobin, RBC 30.3 pg 27.0-31.2 mean corpuscular hemoglobin concentration, RBC 32.1 G/DL % 31.8- 35.4 red blood cell distribution width 14.5 % 11.6-14.8 platelet count 192 10^3/MM^3 10*3/mm3 142-424 Lab Report: CBC, Comp. Metabolic Panel, HGBA1C, Erythrocyte Sed Rate - Chemistry sodium, serum 142 mmol/L 837-475 2098/02/27 carbon dioxide, venous blood 26.2 mmol/L 21.0-32.0 [...] Panel - Chemistry sodium, serum 140 mmol/L 832-126 3369/07/13 carbon dioxide, venous blood 23.7 mmol/L 21.0-32.0 potassium, serum 5.4 mmol/L 3.5-5.2 chloride, serum 106 mmol/L 98-107 blood glucose 156 mg/dL 65-110 urea nitrogen, blood 53 mg/dL 7-18 creatinine, serum 2.61 mg/dL 0.60-1.30 alanine aminotransferase (SGPT), serum 20 U/L -78 aspartate aminotransferase (SGOT), serum 17 U/L 15-37 calcium, serum 9.1 mg/dL 8.5-10.1 bilirubin, serum, total 0.50 mg/dL 0.00-1.00 Lab Report: Comp. Metabolic Panel, Thyroid Stimulating Hormone (L), Free ... - Chemistry protein, total urine random Negative mg/dL Negative RBC, urine, dipstick Negative Negative sodium, serum 142 mmol/L 291-557 2099/01/08 carbon dioxide, venous blood 23.9 mmol/L 21.0-32.0 [...] Negative;Positive Encounters Code Encounter Date Provider Facility CPT-32986 Level 4 Est. Patient 11:32:07 CDT Simon Castillo [facility] CPT-44027 Level 3 Est. Patient 11:36:15 CDT Simon Castillo [facility] CPT-50877 Level 4 Est. Patient 14:06:23 HOME FURNISHINGS SALES REPRESENTATIVE Simon Castillo MD [facility] CPT-99543 Level 3 Est. Patient 12:04:38 HOME FURNISHINGS SALES REPRESENTATIVE Giles Tatum [facility] CPT-38521 Level 3 Est. Patient 11:57:09 HOME FURNISHINGS SALES REPRESENTATIVE Giles Tatum [facility] CPT-31215 Level 3 Est. Patient 11:48:57 HOME FURNISHINGS SALES REPRESENTATIVE Giles Tatum [facility] CPT-17796 Level 4 Est. Patient 09:54:36 CDT Simon Castillo MD [facility] CPT-12304 Level 4 Est. Patient 08:48:38 CDT Simon Castillo MD [facility] CPT-49673 Level 4 Est. Patient 09:54:08 CDT Simon Castillo MD [facility] CPT-99970 Level 4 Est. Patient 16:11:23 CDT Simon Castillo MD [facility] CPT-10081 Level 4 Est. Patient 09:29:28 HOME FURNISHINGS SALES REPRESENTATIVE Simon Castillo MD [facility] CPT-09224 Level 3 Est. Patient 09:18:25 CDT Simon Castillo MD [facility] CPT-46975 Level 4 Est. Patient 11:51:23 CDT Simon Castillo MD [facility] CPT-82540 Level 4 Est. Patient 14:32:04 CDT Neto Oshea DO [facility] CPT-13136 Level 3 Est. Patient 08:41:43 CDT Jillina Nashzell [facility] CPT-04962 Level 3 Est. Patient 08:40:53 CDT 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 [facility] CPT-44550 Level 3 Est. Patient 08:36:52 CDT 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 [facility] CPT-29741 Level 3 Est. Patient 09:08:44 CDT Jillina Nashzell [facility] CPT-99169 Level 4 Est. Patient 09:17:32 HOME FURNISHINGS SALES REPRESENTATIVE Simon Castillo MD [facility] CPT-40205 Level 3 Est. Patient 11:22:22 HOME FURNISHINGS SALES REPRESENTATIVE Simon Castillo MD [facility] CPT-34242 Level 3 Est. Patient 09:02:14 CDT Simon Csatillo MD [facility] CPT-18894 Level 4 Est. Patient 08:47:25 CDT Simon Castillo MD [facility] CPT-03584 Level 4 Est. Patient 10:17:25 CDT Simon Castillo MD [facility] CPT-89484 Level 4 Est. Patient 10:10:09 HOME FURNISHINGS SALES REPRESENTATIVE Simon Castillo MD [facility] CPT-75788 Level 4 Est. Patient 11:48:19 CDT Simon Castillo MD [facility] CPT-11312 Level 4 Est. Patient 08:59:29 CDT Simon Castillo MD [facility] CPT-20023 Level 4 Est. Patient 10:52:51 HOME FURNISHINGS SALES REPRESENTATIVE Simon Castillo MD [facility] CPT-31749 Level 4 Est. Patient 11:50:30 CDT Simon Castillo MD [facility] CPT-76163 Level 4 Est. Patient 09:54:46 CDT Simon Castillo MD [facility] CPT-18538 Level 3 Est. Patient 11:10:14 CDT Simon Castillo MD [facility] CPT-83556 Level 4 Est. Patient 09:44:02 CDT Simon Castillo MD [facility] CPT-17680 Level 3 Est. Patient 09:27:48 CDT Simon Castillo MD [facility] CPT-71731 Level 3 Est. Patient 09:58:06 HOME FURNISHINGS SALES REPRESENTATIVE Simon Castillo MD [facility] CPT-86993 Level 3 Est. Patient 09:51:35 CDT Simon Castillo MD [facility] Procedures Code Procedure Name Date Entry Date Standard Description CPT-41277 EKG Trac and Interp - XRAY USE ONLY 11:41:45 CDT 02/23 CPT-59323 Chest, 2 views 11:41:45 CDT CPT-20160 EKG Trac and Interp - XRAY USE ONLY 12:19:18 HOME FURNISHINGS SALES REPRESENTATIVE 09/29 CPT-10694 Chest, 2 views 12:19:17 HOME FURNISHINGS SALES REPRESENTATIVE CPT-Cryo Cryotherapy 09:54:37 CDT CPT-36939 First Vx - Ix admin for Medicare patients 09:13:10 CDT CPT-43466 Fluzone High-Dose Intramuscular Suspension 09:13:10 CDT CPT-G0439 Subsequent Annual Wellness Exam 09:41:17 CDT CPT-41632 Lipid - LAB USE ONLY 17:15:33 CDT CPT-09654 HGBA1C - LAB USE ONLY 17:15:33 CDT CPT-55264 CMP - LAB USE ONLY 17:15:33 CDT CPT-28018 Venipuncture Draw Fee 17:15:33 CDT CPT-[facility] Transitional Care Mgmt-High 11:01:28 HOME FURNISHINGS SALES REPRESENTATIVE CPT-42198 First Vx - Ix admin for Medicare patients 17:33:39 CDT CPT-58449 Fluzone High-Dose Intramuscular Suspension 17:33:39 CDT CPT-G0438 Initial Annual Wellness Exam 08:57:30 CDT CPT-89423 Chest 2V Frontal and Lat - XRAY USE ONLY 09:00:14 CDT CPT-17417 Venipuncture Draw Fee 13:33:02 CDT CPT-15530 Bone Density 09:37:49 HOME FURNISHINGS SALES REPRESENTATIVE CPT-97122 Fluzone High Dose 17:20:42 CDT CPT-91085 Prevnar 13 17:20:42 CDT CPT-63527 Administration 2+ single or combination vaccines inc oral 17:20:42 CDT CPT-20428 Administration single or combination vaccine inc oral 17 :20:42 CDT CPT-89472 Hand comp min 3V 09:24:38 CDT CPT-88268 Venipuncture Draw Fee 08:07:29 HOME FURNISHINGS SALES REPRESENTATIVE CPT-34629 Venipuncture Draw Fee 09:02:51 HOME FURNISHINGS SALES REPRESENTATIVE CPT-21948 Venipuncture Draw Fee 12:45:08 HOME FURNISHINGS SALES REPRESENTATIVE CPT-94742 Venipuncture Draw Fee 09:25:31 CDT CPT-G0008 Administration of Influenza Virus Vaccine 14:41:29 CDT CPT-03388 Fluzone High-Dose Intramuscular Suspension 14:41:29 CDT CPT-Cryo Cryotherapy 11:48:20 CDT CPT-46214 EKG Trac and Interp 09:21:58 CDT CPT-00803 Chest 2V Frontal and Lat 09:21:58 CDT CPT-Cryo Cryotherapy 10:54:51 HOME FURNISHINGS SALES REPRESENTATIVE CPT-61794 Administration 2+ single or combination vaccines inc oral 10:42:19 CDT CPT-07779 Administration single or combination vaccine inc oral 10 :42:19 CDT CPT-99971 Pneumovax 10:42:19 CDT CPT-93285 Influenza High Dose age 65+ 10:42:19 CDT CPT-03222 Administration single or combination vaccine inc oral 13 :18:54 CDT CPT-41146 Influenza High Dose age 65+ 13:18:54 CDT CPT-04016 Venipuncture Draw Fee 11:53:16 CDT CPT-54806 LS spine comp w obliq 11:03:13 CDT CPT-Cryo Cryotherapy 08:27:16 HOME FURNISHINGS SALES REPRESENTATIVE CPT-80563 Administration single or combination vaccine inc oral 10 :56:34 CDT CPT-48461 Influenza High Dose age 65+ 10:56:34 CDT
--- OUTSIDE RECORDS SUMMARY | 2018-03-31 16:35 | XMS REPORT | Clinical Summary ---
Author Author Admin, RAFFI Salazar [employer] Address Unknown Phone Unavailable Allergies, Adverse Reactions, [...] other specified diseases Obesity 278.00 Resolved Simon aCstillo MD Obesity, unspecified Allergic rhinitis 477.9 Active [...] Castillo MD Rheumatoid arthritis Steroid use, intermediate frame tender V58.65 Resolved Simon Castillo MD Long-term (current) [...] Rheumatoid arthritis Pharyngitis 462 Active Giles Tatum DISPATCH OFFICER Acute pharyngitis FH DIABETES ICD-V18.0 Inactive Simon [...] mouth daily as needed for allergies LORATADINE 43559658719 Active Jillina Deepti HEMPHILL Active PREDNISONE 20 MG TAB 1 tablet daily for airway inflammation PREDNISONE 15078714678 Active 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 DISPATCH OFFICER Active AZITHROMYCIN 250 MG TABS 2 po qd x 1 day, then 1 po qd x 4 days AZITHROMYCIN 13340803973 No Longer Active Jillina Deepti LOYAN Active GLIMEPIRIDE 2 MG ORAL TABS 1 po q a.m. GLIMEPIRIDE 20942165168 Active Simon Castillo MD Active HYDROCODONE-ACETAMINOPHEN 5-325 MG TABS 1 tab by mouth 8 hours as needed for pain HYDROCODONE-ACETAMINOPHEN 84629974887 Active Simon Castillo MD Active TRAMADOL HCL 50 MG TABS 1 po q6hr PRN Pain TRAMADOL HCL 61691132722 No Longer Active Simon Castillo MD Active PREDNISONE 5 MG TAB 1-2 tabs daily for rheumatoid arthritis PREDNISONE 16192726628 Active Simon Castillo MD Active PREDNISONE 5 MG TABS 1 po qod PREDNISONE 48037487094 No Longer Active Simon Castillo MD Active SYMBICORT 160-4.5 MCG/ACT AERO 2 puff BID BUDESONIDE- FORMOTEROL FUMARATE 93535876869 No Longer Active Simon Castillo MD Active FLONASE 50 MCG/ACT SUSP 2 puffs in each nostril daily FLUTICASONE PROPIONATE 68949697553 No Longer Active Simon Castillo MD Active PREDNISONE 20 MG TAB 2 tabs daily for 5 days, then 1 daily for 5 days PREDNISONE 11381631296 No Longer Active Simon Castillo MD Active PREDNISONE 20 MG TAB 2 tabs daily for 5 days, then 1 daily for 5 days, then 0.5 for 4 days PREDNISONE 92833107710 No Longer Active Simon Castillo MD Active CLOTRIMAZOLE 1 % EXT CREA Apply to affected area of feet twice daily PRN Rash CLOTRIMAZOLE 83656442831 Active Simon Castillo MD Active PREDNISONE 20 MG TAB 2 tabs daily for 3 days, 1 tab daily for 3 days, 1/2 tab daily for 2 days PREDNISONE 68160262460 No Longer Active Simon Castillo MD Active AZITHROMYCIN 250 MG TABS 2 po qd x 1 day, then 1 po qd x 4 days AZITHROMYCIN 87438221702 No Longer Active Simon Castillo MD Active LISINOPRIL 10 MG TABS 1 tablet by mouth daily LISINOPRIL 00740011311 Active Simon Castillo MD Active CARVEDILOL 6.25 MG TABS 1 po BID CARVEDILOL 31393928517 Active Simon Castillo MD Active LISINOPRIL-HYDROCHLOROTHIAZIDE 20-12.5 MG TABS 1/2 tab by mouth daily LISINOPRIL-HYDROCHLOROTHIAZIDE 05198192428 No Longer Active Simon Castillo MD Active TRAMADOL HCL 50 MG TABS 1-2 tablets every 6 hours as needed for pain TRAMADOL HCL 94779537772 Active Giles Tatum APRN Active PREDNISONE 5 MG TAB Take one po qod PREDNISONE 72075593412 No Longer Active Simon Castillo MD Active GLYBURIDE 5 MG TAB Take one by mouth daily GLYBURIDE 17435353912 No Longer Active Simon Castillo MD Active LEVAQUIN 750 MG TABS 1 po qod x 5 doses LEVOFLOXACIN 67432708777 No Longer Active Simon Castillo MD Active CETIRIZINE HCL 10 MG TABS 1 po qd as needed for allergies CETIRIZINE HCL 44829779045 No Longer Active Simon Castillo MD Active FISH OIL 1000 MG CPDR 1 pill by mouth twice daily for cholesterol OMEGA -3 FATTY ACIDS 83251908619 Active Simon Castillo MD Active BILBERRY CAPS 1 tab daily BILBERRY (VACCINIUM MYRTILLUS) CAPS 01437067702 Active Simon Castillo MD Active ATENOLOL 50 MG TABS Take one by mouth daily ATENOLOL 45248467937 No Longer Active Simon Castillo MD Active FLONASE 50 MCG/ACT SUSP 2 puffs in each nostril daily FLUTICASONE PROPIONATE 95624629383 No Longer Active Simon Castillo MD Active GLYBURIDE 5 MG TAB Take one by mouth daily GLYBURIDE 60967861066 No Longer Active Simon Castillo MD Active SYMBICORT 80-4.5 MCG/ACT AERO 2 puffs twice a day BUDESONIDE-FORMOTEROL FUMARATE 36448941064 No Longer Active Simon Castillo MD Active PREDNISONE 20 MG TAB 2 tabs daily for 4 days, 1 tab daily for 4 days, 1/2 tab daily for 4 days PREDNISONE 36002718860 No Longer Active Simon Castillo MD Active AMOXICILLIN 500 MG CAPS 2 po BID x 10 days AMOXICILLIN 12382231696 No Longer Active Simon Castillo MD Active METFORMIN HCL 1000 MG TABS 1 by mounth twice a day METFORMIN HCL 32250466286 No Longer Active Simon Castillo MD Active LUTEIN-ZEAXANTHIN 6-1 MG TABS Take 2 by mouth daily LUTEIN-ZEAXANTHIN 40434313066 Active Simon Castillo MD Active IBUPROFEN 800 MG TABS Take 1 tab every 6 hrs prn IBUPROFEN 01353407684 No Longer Active Simon Castillo MD Active GLYBURIDE 2.5 MG TABS Take one by mouth daily GLYBURIDE 12810185667 No Longer Active Simon Castillo MD Active LANCETS MISC 2 qd LANCETS 19374111447 Active Pamela Conde Active ACACIA CONTOUR TEST STRP Use with testing twice daily GLUCOSE BLOOD 93968291888 Active Simon Castillo MD Active ACACIA ASPIRIN 325 MG TABS Take one by mouth daily ASPIRIN 24714623367 Active Pamela Conde Active GLYBURIDE 2.5 MG TABS Take one by mouth daily GLYBURIDE 2.5 MG TABS 576552 GLYBURIDE Inactive PREDNISONE 20 MG TAB 2 tabs daily for 4 days, 1 tab daily for 4 days, 1/2 tab daily for 4 days PREDNISONE 20 MG TAB 507989 PREDNISONE Inactive SYMBICORT 80-4.5 MCG/ACT AERO 2 puffs twice a day SYMBICORT 80-4.5 MCG/ACT AERO BUDESONIDE-FORMOTEROL FUMARATE Inactive FLONASE 50 MCG/ACT SUSP 2 puffs in each nostril daily FLONASE 50 MCG/ACT SUSP 478406 FLUTICASONE PROPIONATE Inactive ATENOLOL 50 MG TABS Take one by mouth daily ATENOLOL 50 MG TABS 458657 ATENOLOL Inactive CETIRIZINE HCL 10 MG TABS 1 po qd as needed for allergies CETIRIZINE HCL 10 MG TABS 5762054 CETIRIZINE HCL Inactive LEVAQUIN 750 MG TABS 1 po qod x 5 doses LEVAQUIN 750 MG TABS 798269 LEVOFLOXACIN Inactive GLYBURIDE 5 MG TAB Take one by mouth daily GLYBURIDE 5 MG TAB 745264 GLYBURIDE Inactive PREDNISONE 5 MG TAB Take one po qod PREDNISONE 5 MG TAB 505787 PREDNISONE Inactive PREDNISONE 20 MG TAB 2 tabs daily for 5 days, then 1 daily for 5 days PREDNISONE 20 MG TAB 568735 PREDNISONE Inactive FLONASE 50 MCG/ACT SUSP 2 puffs in each nostril daily FLONASE 50 MCG/ACT SUSP 834488 FLUTICASONE PROPIONATE Inactive SYMBICORT 160-4.5 MCG/ACT AERO 2 puff BID SYMBICORT 160-4.5 MCG/ACT AERO BUDESONIDE-FORMOTEROL FUMARATE Inactive PREDNISONE 5 MG TABS 1 po qod PREDNISONE 5 MG TABS 775679 PREDNISONE Inactive AMOXICILLIN 500 MG CAPS 2 po BID x 10 days AMOXICILLIN 500 MG CAPS 851513 AMOXICILLIN Inactive GLYBURIDE 5 MG TAB Take one by mouth daily GLYBURIDE 5 MG TAB 929420 GLYBURIDE Inactive AZITHROMYCIN 250 MG TABS 2 po qd x 1 day, then 1 po qd x 4 days AZITHROMYCIN 250 MG TABS 3917438 AZITHROMYCIN Inactive PREDNISONE 20 MG TAB 2 tabs daily for 3 days, 1 tab daily for 3 days, 1/2 tab daily for 2 days PREDNISONE 20 MG TAB 509448 PREDNISONE Inactive PREDNISONE 20 MG TAB 2 tabs daily for 5 days, then 1 daily for 5 days, then 0.5 for 4 days PREDNISONE 20 MG TAB 225231 PREDNISONE Inactive AZITHROMYCIN 250 MG TABS 2 po qd x 1 day, then 1 po qd x 4 days AZITHROMYCIN 250 MG TABS 2471586 AZITHROMYCIN Inactive Immunizations Vaccine Administration Date Value [...] Panel - Chemistry sodium, serum 132 mmol/L 184-636 2691/10/26 carbon dioxide, venous blood 22.8 mmol/L 21.0-32.0 [...] Panel - Chemistry sodium, serum 139 mmol/L 715-836 0665/03/17 carbon dioxide, venous blood 29.0 mmol/L 21.0-32.0 [...] Rate - Chemistry sodium, serum 136 mmol/L 417-174 9471/09/18 carbon dioxide, venous blood 24.3 mmol/L 21.0-32.0 [...] HGBA1C - Chemistry sodium, serum 139 mmol/L 726-610 9550/07/09 potassium, serum 5.4 mmol/L 3.5-5.2 chloride, serum [...] 8.5 % 4.3-6.0 sodium, serum 137 mmol/L 539-272 1097/02/12 potassium, serum 5.1 mmol/L 3.5-5.2 chloride, serum 103 mmol/L 98-107 carbon dioxide, venous blood 24.4 mmol/L 21.0-32.0 blood glucose 261 mg/dL 65-110 calcium, serum 9.0 mg/dL 8.5-10.1 urea nitrogen, blood 44 mg/dL 7-18 creatinine, serum 2.37 mg/dL 0.55-1.30 Lab Report: Lipid Panel - Chemistry cholesterol, serum 139 mg/dL 366-292 8861/09/10 triglyceride, serum, fasting 176 mg/dL 30-200 HDL cholesterol, serum 45 mg/dL 32-96 LDL cholesterol, serum 59 mg/dL 0-130 Lab Report: MICROALBUMIN - Chemistry albumin/creatinine ratio, urine 30 - 300 mg/g mg/g{creat} 0-29 Lab Report: MICROALBUMIN - Lab microalbumin, urine 30 0-19 Encounters Code Encounter Date Provider Facility CPT-12886 Level 3 Est. Patient 09:08:44 [facility] 4 Est. Patient 09:17:32 TRAIN CONTROLLER Simon Castillo MD [facility] CPT-17637 Level 3 Est. Patient 11:22:22 TRAIN CONTROLLER Simon Castillo MD [facility] CPT-95909 Level 3 Est. Patient 09:02:14 CDT Simon Castillo MD [facility] CPT-10992 Level 4 Est. Patient 08:47:25 CDT Simon Castillo MD [facility] CPT-72459 Level 4 Est. Patient 10:17:25 CDT Simon Castillo MD [facility] CPT-98756 Level 4 Est. Patient 10:10:09 TRAIN CONTROLLER Simon Castillo MD [facility] CPT-74413 Level 4 Est. Patient 11:48:19 CDT Simon Castillo MD [facility] CPT-33533 Level 4 Est. Patient 08:59:29 CDT Simon Castillo MD [facility] CPT-58112 Level 4 Est. Patient 10:52:51 TRAIN CONTROLLER Simon Castillo MD [facility] CPT-20859 Level 4 Est. Patient 11:50:30 CDT Simon Castillo MD [facility] CPT-81028 Level 4 Est. Patient 09:54:46 CDT Simon Castillo MD [facility] CPT-91723 Level 3 Est. Patient 11:10:14 CDT Simon Castillo MD [facility] CPT-69990 Level 4 Est. Patient 09:44:02 CDT Simon Castillo MD [facility] CPT-00699 Level 3 Est. Patient 09:27:48 CDT Simon Castillo MD [facility] CPT-12069 Level 3 Est. Patient 09:58:06 TRAIN CONTROLLER Simon Castillo MD [facility] CPT-29971 Level 3 Est. Patient 09:51:35 CDT Simon Castillo MD [facility] Procedures Code Procedure Name Date Entry Date Standard Description CPT-04469 Venipuncture Draw Fee 13:33:02 CDT CPT-11243 Bone Density 09:37:49 TRAIN CONTROLLER CPT-02650 Fluzone High Dose 17:20:42 CDT CPT-32167 Prevnar 13 17:20:42 CDT CPT-77494 Administration 2+ single or combination vaccines inc oral 17:20:42 CDT CPT-38616 Administration single or combination vaccine inc oral 17 :20:42 CDT CPT-53045 Hand comp min 3V 09:24:38 CDT CPT-58481 Venipuncture Draw Fee 08:07:29 TRAIN CONTROLLER CPT-07701 Venipuncture Draw Fee 09:02:51 TRAIN CONTROLLER CPT-50633 Venipuncture Draw Fee 12:45:08 TRAIN CONTROLLER CPT-97193 Venipuncture Draw Fee 09:25:31 CDT CPT-G0008 Administration of Influenza Virus Vaccine 14:41:29 CDT CPT-79461 Fluzone High-Dose Intramuscular Suspension 14:41:29 CDT CPT-Cryo Cryotherapy 11:48:20 CDT CPT-22168 EKG Trac and Interp 09:21:58 CDT CPT-63778 Chest 2V Frontal and Lat 09:21:58 CDT CPT-Cryo Cryotherapy 10:54:51 TRAIN CONTROLLER CPT-00817 Administration 2+ single or combination vaccines inc oral 10:42:19 CDT CPT-89804 Administration single or combination vaccine inc oral 10 :42:19 CDT CPT-46788 Pneumovax 10:42:19 CDT CPT-88397 Influenza High Dose age 65+ 10:42:19 CDT CPT-75823 Administration single or combination vaccine inc oral 13 :18:54 CDT CPT-62601 Influenza High Dose age 65+ 13:18:54 CDT CPT-17494 Venipuncture Draw Fee 11:53:16 CDT CPT-19881 LS spine comp w obliq 11:03:13 CDT CPT-Cryo Cryotherapy 08:27:16 TRAIN CONTROLLER CPT-44239 Administration single or combination vaccine inc oral 10 :56:34 CDT CPT-31799 Influenza High Dose age 65+ 10:56:34 CDT
--- OUTSIDE RECORDS SUMMARY | 2018-03-31 16:36 | XMS REPORT | Clinical Summary ---
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 Simon Castillo MD Long-term (current) [...] MD Actinic keratosis Syncope and collapse 780.2 Active Giles Tatum APRN Syncope and collapse abrasion, face, infected 910.1 Active Giles Tatum RACING MANAGER Abrasion or friction burn of face, neck, and scalp except eye, infected Other injury of unspecified body region, initial encounter 879.8 Active Giles Tatum RACING MANAGER Open wound(s) (multiple) of unspecified site(s) except limbs, without mention of complication Lesion of skin of face 709.9 Active Giles Tatum RACING MANAGER Unspecified disorder of skin and subcutaneous tissue DIABETES ICD-V18.0 Inactive Simon Castillo MD FH LUNG CANCER ICD-V16.1 Inactive Simon Castillo MD CHEST WALL PAIN, HX OF ICD-V15.89 Inactive Simon Castillo MD SEBORRHEIC KERATOSIS ICD-702.19 Kerry Castillo MD BRONCHITIS, ACUTE ICD-466.0 Inactive Simon Castillo MD SINUSITIS, ACUTE ICD-461.9 Inactive Simon Castillo MD ABDOMINAL PAIN RIGHT LOWER QUADRANT ICD-789.03 Inactive Simon Castillo MD ABDOMINAL TENDERNESS ICD-789.60 Kerry Castillo MD BENIGN PROSTATIC HYPERTROPHY, MILD, HX OF ICD-V13.89 Inactive Simon Castillo MD Obesity ICD-278.00 Inactive Simon Castillo MD 2013 Actinic keratosis ICD-702.0 Inactive Simon Castillo MD Chest pain ICD-786.50 Inactive Simon Castillo MD Cough ICD-786.2 Inactive Simon Castillo MD Eczema ICD-692.9 Inactive Simon Castillo MD 02/27 Bronchitis, acute ICD-466.0 Inactive Simon Castillo MD SCIATICA ICD-724.3 Inactive Simon Castillo MD 2012 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, 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 Inactive Simon Castillo MD Hand pain, [...] MD Dyspnea ICD-786.09 Kerry Castillo MD 2016 Hand pain, bilateral ICD-729.5 Kerry Castillo MD Tinea pedis ICD-110.4 Kerry Castillo MD Medication List Medication Instructions Start Date Stop Date Generic Name NDC Status Provider Patient Instruction BUMETANIDE 0.5 MG ORAL TABLET 1 po qd BUMETANIDE 02211054933 Active Simon Castillo MD Active AUGMENTIN 875-125 MG ORAL TABLET 1 po BID x 10 days AMOXICILLIN-POT CLAVULANATE 79632120884 No Longer Active Simon Castillo MD Active PIOGLITAZONE HCL 30 MG ORAL TABLET 1 po qd PIOGLITAZONE HCL 99931401624 Active Simon Castillo MD Active GLIMEPIRIDE 4 MG ORAL TABLET 1 po BID GLIMEPIRIDE 66238592003 Active Simon Castillo MD Active ASPIRIN EC 81 MG ORAL TABLET DELAYED RELEASE 1 po qd ASPIRIN 15716648905 Active Simon Castillo MD Active CLOTRIMAZOLE 1 % EXTERNAL CREAM Apply to affected area of feet twice daily PRN Rash CLOTRIMAZOLE 67055953687 No Longer Active Simon Castillo MD Active PREDNISONE 5 MG ORAL TABLET 1 po BID PREDNISONE 58096877832 Active Dolly MCDERMOTT Active FISH OIL 1000 MG ORAL CAPSULE DELAYED RELEASE 1 po BID OMEGA- 3 FATTY ACIDS 83980598653 Active Simon Castillo MD Active LISINOPRIL 10 MG ORAL TABLET 1 p qd LISINOPRIL 65873605168 Active Simon Castillo MD Active CLARITIN 10 MG ORAL TABLET 1 tablet by mouth daily as needed for allergies LORATADINE 77920210111 No Longer Active Simon Castillo MD Active TRIAMCINOLONE ACETONIDE 0.1 % EXTERNAL OINTMENT Apply to affected areas TID for up to 2 weeks TRIAMCINOLONE ACETONIDE 08958472665 No Longer Active Simon Castillo MD Active LASIX 20 MG ORAL TABLET 1 tablet by mouth daily x 2 days FUROSEMIDE 28960417162 No Longer Active Simon Castillo MD Active SULFASALAZINE 500 MG ORAL TABLET DELAYED RELEASE 2 tabs BID 02/26 SULFASALAZINE 90502805227 No Longer Active Neto Oshea DO Active PREDNISONE 20 MG ORAL TABLET 2 tabs daily for 3 days, 1 tab daily for 3 days, 1/2 tab daily for 2 days PREDNISONE 50283131137 No Longer Active Giles Tatum APRN Active PREDNISONE 20 MG ORAL TABLET 1 tablet daily for airway inflammation PREDNISONE 22344631877 No Longer Active Giles Tatum APRN Active AZITHROMYCIN 250 MG ORAL TABLET 2 po qd x 1 day, then 1 po qd x 4 days 01/28 AZITHROMYCIN 81695796910 No Longer Active Giles Tatum APRN Active HYDROCODONE-ACETAMINOPHEN 5-325 MG ORAL TABLET 1 tab by mouth 8 hours as needed for pain HYDROCODONE-ACETAMINOPHEN 65388394206 Active Simon Castillo MD Active TRAMADOL HCL 50 MG ORAL TABLET 1 po q6hr PRN Pain TRAMADOL HCL 14457283175 No Longer Active Simon Castillo MD Active PREDNISONE 5 MG ORAL TABLET 1 po qod PREDNISONE 18282467696 No Longer Active Simon Castillo MD Active SYMBICORT 160-4.5 MCG/ACT INHALATION AEROSOL 2 puff BID BUDESONIDE-FORMOTEROL FUMARATE 04778345650 No Longer Active Simon Castillo MD Active FLONASE 50 MCG/ACT NASAL SUSPENSION 2 puffs in each nostril daily FLUTICASONE PROPIONATE 71407204509 No Longer Active Simon Castillo MD Active PREDNISONE 20 MG ORAL TABLET 2 tabs daily for 5 days, then 1 daily for 5 days PREDNISONE 74833194251 No Longer Active Simon Castillo MD Active PREDNISONE 20 MG ORAL TABLET 2 tabs daily for 5 days, then 1 daily for 5 days , then 0.5 for 4 days PREDNISONE 44097587138 No Longer Active Simon Castillo MD Active PREDNISONE 20 MG ORAL TABLET 2 tabs daily for 3 days, 1 tab daily for 3 days, 1/2 tab daily for 2 days PREDNISONE 30526510560 No Longer Active Simon Castillo MD Active AZITHROMYCIN 250 MG ORAL TABLET 2 po qd x 1 day, then 1 po qd x 4 days 03/16 AZITHROMYCIN 09128239084 No Longer Active Simon Castillo MD Active CARVEDILOL 6.25 MG ORAL TABLET 1 po BID CARVEDILOL 13051211878 Active Simon Castillo MD Active LISINOPRIL-HYDROCHLOROTHIAZIDE 20-12.5 MG ORAL TABLET 1/2 tab by mouth daily LISINOPRIL-HYDROCHLOROTHIAZIDE 01038622620 No Longer Active Simon Castillo MD Active TRAMADOL HCL 50 MG ORAL TABLET 1-2 tablets every 6 hours as needed for pain TRAMADOL HCL 04283219579 Active Giles Tatum APRN Active PREDNISONE 5 MG ORAL TABLET Take one po qod PREDNISONE 73502107395 No Longer Active Simon Castillo MD Active GLYBURIDE 5 MG ORAL TABLET Take one by mouth daily GLYBURIDE 78262400478 No Longer Active Simon Castillo MD Active LEVAQUIN 750 MG ORAL TABLET 1 po qod x 5 doses LEVOFLOXACIN 79896529147 No Longer Active Simon Castillo MD Active CETIRIZINE HCL 10 MG ORAL TABLET 1 po qd as needed for allergies CETIRIZINE HCL 38960715852 No Longer Active Simon Castillo MD Active BILBERRY CAPSULE 1 tab daily BILBERRY (VACCINIUM MYRTILLUS) CAPS 03575944458 Active Simon Castillo MD Active ATENOLOL 50 MG ORAL TABLET Take one by mouth daily ATENOLOL 63567605541 No Longer Active Simon Castillo MD Active FLONASE 50 MCG/ACT NASAL SUSPENSION 2 puffs in each nostril daily FLUTICASONE PROPIONATE 17913662037 No Longer Active Simon Castillo MD Active GLYBURIDE 5 MG ORAL TABLET Take one by mouth daily GLYBURIDE 45170384947 No Longer Active Simon Castillo MD Active SYMBICORT 80-4.5 MCG/ACT INHALATION AEROSOL 2 puffs twice a day BUDESONIDE-FORMOTEROL FUMARATE 83555480509 No Longer Active Simon Castillo MD Active PREDNISONE 20 MG ORAL TABLET 2 tabs daily for 4 days, 1 tab daily for 4 days, 1/2 tab daily for 4 days PREDNISONE 06584735185 No Longer Active Simon Castillo MD Active AMOXICILLIN 500 MG ORAL CAPSULE 2 po BID x 10 days AMOXICILLIN 23943223083 No Longer Active Simon Castillo MD Active METFORMIN HCL 1000 MG ORAL TABLET [address] [facility] twice a day METFORMIN HCL 20140406585 No Longer Active Simon Castillo MD Active LUTEIN-ZEAXANTHIN 6-1 MG ORAL TABLET Take 2 by mouth daily LUTEIN- ZEAXANTHIN 80874457619 Active Simon Castillo MD Active IBUPROFEN 800 MG ORAL TABLET Take 1 tab every 6 hrs prn IBUPROFEN 89212007673 No Longer Active Simon Castillo MD Active GLYBURIDE 2.5 MG ORAL TABLET Take one by mouth daily GLYBURIDE 22210274038 No Longer Active Simon Castillo MD Active LANCETS 2 qd LANCETS 90370468168 Active Pamela Conde Active ACACIA CONTOUR TEST IN VITRO STRIP Use with testing twice daily GLUCOSE BLOOD 26782111964 Active Simon Castillo MD Active GLYBURIDE 2.5 MG ORAL TABLET Take one by mouth daily GLYBURIDE 2.5 MG ORAL TABLET 510827 GLYBURIDE Inactive PREDNISONE 20 MG ORAL TABLET 2 tabs daily for 4 days, 1 tab daily for 4 days, 1/2 tab daily for 4 days PREDNISONE 20 MG ORAL TABLET 117285 PREDNISONE Inactive SYMBICORT 80-4.5 MCG/ACT INHALATION AEROSOL 2 puffs twice a day SYMBICORT 80-4.5 MCG/ACT INHALATION AEROSOL BUDESONIDE- FORMOTEROL FUMARATE Inactive FLONASE 50 MCG/ACT NASAL SUSPENSION 2 puffs in each nostril daily FLONASE 50 MCG/ACT NASAL SUSPENSION 2690252 FLUTICASONE PROPIONATE Inactive ATENOLOL 50 MG ORAL TABLET Take one by mouth daily ATENOLOL 50 MG ORAL TABLET 217756 ATENOLOL Inactive CETIRIZINE HCL 10 MG ORAL TABLET 1 po qd as needed for allergies CETIRIZINE HCL 10 MG ORAL TABLET 2101192 CETIRIZINE HCL Inactive LEVAQUIN 750 MG ORAL TABLET 1 po qod x 5 doses LEVAQUIN 750 MG ORAL TABLET 658055 LEVOFLOXACIN Inactive GLYBURIDE 5 MG ORAL TABLET Take one by mouth daily GLYBURIDE 5 MG ORAL TABLET 446760 GLYBURIDE Inactive PREDNISONE 5 MG ORAL TABLET Take one po qod PREDNISONE 5 MG ORAL TABLET 996263 PREDNISONE Inactive PREDNISONE 20 MG ORAL TABLET 2 tabs daily for 5 days, then 1 daily for 5 days PREDNISONE 20 MG ORAL TABLET 548191 PREDNISONE Inactive FLONASE 50 MCG/ACT NASAL SUSPENSION 2 puffs in each nostril daily FLONASE 50 MCG/ACT NASAL SUSPENSION 5541527 FLUTICASONE PROPIONATE Inactive SYMBICORT 160-4.5 MCG/ACT INHALATION AEROSOL 2 puff BID SYMBICORT 160-4.5 MCG/ACT INHALATION AEROSOL BUDESONIDE-FORMOTEROL FUMARATE Inactive PREDNISONE 5 MG ORAL TABLET 1 po qod PREDNISONE 5 MG ORAL TABLET 816274 PREDNISONE Inactive PREDNISONE 20 MG ORAL TABLET 1 tablet daily for airway inflammation PREDNISONE 20 MG ORAL TABLET 472921 PREDNISONE Inactive SULFASALAZINE 500 MG ORAL TABLET DELAYED RELEASE 2 tabs BID 02/26 SULFASALAZINE 500 MG ORAL TABLET DELAYED RELEASE 496031 SULFASALAZINE Inactive LASIX 20 MG ORAL TABLET 1 tablet by mouth daily x 2 days LASIX 20 MG ORAL TABLET 640954 FUROSEMIDE Inactive CLARITIN 10 MG ORAL TABLET 1 tablet by mouth daily as needed for allergies CLARITIN 10 MG ORAL TABLET 942015 LORATADINE Inactive CLOTRIMAZOLE 1 % EXTERNAL CREAM Apply to affected area of feet twice daily PRN Rash CLOTRIMAZOLE 1 % EXTERNAL CREAM 530327 CLOTRIMAZOLE Inactive AMOXICILLIN 500 MG ORAL CAPSULE 2 po BID x 10 days AMOXICILLIN 500 MG ORAL CAPSULE 376755 AMOXICILLIN Inactive GLYBURIDE 5 MG ORAL TABLET Take one by mouth daily GLYBURIDE 5 MG ORAL TABLET 817769 GLYBURIDE Inactive AZITHROMYCIN 250 MG ORAL TABLET 2 po qd x 1 day, then 1 po qd x 4 days 03/16 AZITHROMYCIN 250 MG ORAL TABLET 343076 AZITHROMYCIN Inactive PREDNISONE 20 MG ORAL TABLET 2 tabs daily for 3 days, 1 tab daily for 3 days, 1/2 tab daily for 2 days PREDNISONE 20 MG ORAL TABLET 653391 PREDNISONE Inactive PREDNISONE 20 MG ORAL TABLET 2 tabs daily for 5 days, then 1 daily for 5 days , then 0.5 for 4 days PREDNISONE 20 MG ORAL TABLET 678622 PREDNISONE Inactive AZITHROMYCIN 250 MG ORAL TABLET 2 po qd x 1 day, then 1 po qd x 4 days 01/28 AZITHROMYCIN 250 MG ORAL TABLET 931206 AZITHROMYCIN Inactive PREDNISONE 20 MG ORAL TABLET 2 tabs daily for 3 days, 1 tab daily for 3 days, 1/2 tab daily for 2 days PREDNISONE 20 MG ORAL TABLET 430944 PREDNISONE Inactive TRIAMCINOLONE ACETONIDE 0.1 % EXTERNAL OINTMENT Apply to affected areas TID for up to 2 weeks TRIAMCINOLONE ACETONIDE 0.1 % EXTERNAL OINTMENT 2457633 TRIAMCINOLONE ACETONIDE Inactive AUGMENTIN 875-125 MG ORAL TABLET 1 po BID x 10 days AUGMENTIN 875-125 MG ORAL TABLET 093699 AMOXICILLIN-POT CLAVULANATE Inactive Immunizations Vaccine Administration Date [...] Peptide - Chemistry sodium, serum 142 mmol/L 019-142 3432/07/18 potassium, serum 5.0 mmol/L 3.5-5.2 chloride, serum [...] Panel - Chemistry sodium, serum 140 mmol/L 688-586 1256/07/13 carbon dioxide, venous blood 23.7 mmol/L 21.0-32.0 [...] Stimulating Hormone (L), Free ... - Chemistry sodium, serum 142 mmol/L 089-468 5890/01/08 carbon dioxide, venous blood 23.9 mmol/L 21.0-32.0 [...] 0.36-3.74 thyroxine, serum, free 0.88 ng/dL 0.59-1.17 protein, total urine random Negative mg/dL Negative RBC, urine, dipstick Negative Negative Lab Report: Comp. Metabolic Panel, Thyroid Stimulating Hormone (L), Free ... - Urinalysis urobilinogen, urine, semiquantitative (dipstick) 0.2 E.U./dL Normal leukocyte esterase, urine, by dipstick Negative Negative nitrite, urine, semiquantitative Negative Negative glucose, urine, semiquantitative Negative Negative ketones, urine, by test strip Negative Negative bilirubin, urine Negative Negative urine color Yellow Colorless;Lightyellow;Straw;Yellow appearance, urine Clear Clear specific gravity, urine 1.015 1.000-1.030 pH, urine, semiquantitative 5.0 5.0-8.5 Lab Report: HGBA1C - Chemistry hemoglobin A1C, blood, as % of total hemoglobin 7.8 % 4.3-6.0 Lab Report: Lipid Panel, HGBA1C, Comp. Metabolic Panel - Chemistry cholesterol, serum 126 mg/dL 865-144 0516/02/07 triglyceride, serum, fasting 83 mg/dL 30-200 HDL cholesterol, serum 70 mg/dL 32-96 LDL cholesterol, serum 39 mg/dL 0-130 hemoglobin A1C, blood, as % of total hemoglobin 8.3 % 4.3-6.0 sodium, serum 141 mmol/L 026-377 6595/02/07 carbon dioxide, venous blood 26.0 mmol/L 21.0-32.0 potassium, serum 5.1 mmol/L 3.5-5.2 chloride, serum 107 mmol/L 98-107 blood glucose 159 mg/dL 65-110 urea nitrogen, blood 42 mg/dL 7-18 creatinine, serum 2.27 mg/dL 0.55-1.30 alanine aminotransferase (SGPT), serum 22 U/L 12-78 aspartate aminotransferase (SGOT), serum 19 U/L 15-37 calcium, serum 8.3 mg/dL 8.5-10.1 bilirubin, serum, total 0.70 mg/dL 0.00-1.00 Lab Report: MIKAELA INFLUENZA A/B - Toxicology rapid flu test Negative Negative;Positive Encounters Code Encounter Date Provider Facility CPT-69325 Level 3 Est. Patient 12:04:38 BUILDING ESTIMATOR Giles Tatum [facility] CPT-75869 Level 3 Est. Patient 11:57:09 BUILDING ESTIMATOR Giles Tatum [facility] CPT-39592 Level 3 Est. Patient 11:48:57 BUILDING ESTIMATOR Giles Tatum [facility] CPT-63623 Level 4 Est. Patient 09:54:36 CDT Simon Castillo MD [facility] CPT-96335 Level 4 Est. Patient 08:48:38 CDT Simon Castillo MD [facility] CPT-23573 Level 4 Est. Patient 09:54:08 CDT Simon Castillo MD [facility] CPT-15463 Level 4 Est. Patient 16:11:23 CDT Simon Castillo MD [facility] CPT-54896 Level 4 Est. Patient 09:29:28 BUILDING ESTIMATOR Simon Castillo MD [facility] CPT-69643 Level 3 Est. Patient 09:18:25 CDT Simon Castillo MD [facility] CPT-65104 Level 4 Est. Patient 11:51:23 CDT Simon Castillo MD [facility] CPT-13210 Level 4 Est. Patient 14:32:04 CDT Neto Oshea DO [facility] CPT-84555 Level 3 Est. Patient 08:41:43 CDT Giles Tatum [facility] CPT-39497 Level 3 Est. Patient 08:40:53 CDT Giles Tatum [facility] CPT-50354 Level 3 Est. Patient 08:36:52 CDT Giles Tatum [facility] CPT-38951 Level 3 Est. Patient 09:08:44 CDT Giles Tatum [facility] CPT-09059 Level 4 Est. Patient 09:17:32 BUILDING ESTIMATOR Simon Castillo MD [facility] CPT-47386 Level 3 Est. Patient 11:22:22 BUILDING ESTIMATOR Simon Castillo MD [facility] CPT-37868 Level 3 Est. Patient 09:02:14 CDT Simon Castillo MD [facility] CPT-31304 Level 4 Est. Patient 08:47:25 CDT Simon Castillo MD [facility] CPT-47291 Level 4 Est. Patient 10:17:25 CDT Simon Castillo MD [facility] CPT-77510 Level 4 Est. Patient 10:10:09 BUILDING ESTIMATOR Simon Castillo MD [facility] CPT-93042 Level 4 Est. Patient 11:48:19 CDT Simon Castillo MD [facility] CPT-35844 Level 4 Est. Patient 08:59:29 CDT Simon Castillo MD [facility] CPT-72453 Level 4 Est. Patient 10:52:51 BUILDING ESTIMATOR Simon Castillo MD [facility] CPT-79165 Level 4 Est. Patient 11:50:30 CDT Simon Castillo MD [facility] CPT-85856 Level 4 Est. Patient 09:54:46 CDT Simon Castillo MD [facility] CPT-26464 Level 3 Est. Patient 11:10:14 CDT Simon Castillo MD [facility] CPT-21206 Level 4 Est. Patient 09:44:02 CDT Simon Castillo MD [facility] CPT-14388 Level 3 Est. Patient 09:27:48 CDT Simon Castillo MD [facility] CPT-40581 Level 3 Est. Patient 09:58:06 BUILDING ESTIMATOR Simon Castillo MD [facility] CPT-96971 Level 3 Est. Patient 09:51:35 CDT Simon Castillo MD [facility] Procedures Code Procedure Name Date Entry Date Standard Description CPT-82300 EKG Trac and Interp - XRAY USE ONLY 12:19:18 BUILDING ESTIMATOR 09/29 CPT-58632 Chest, 2 views 12:19:17 BUILDING ESTIMATOR CPT-Cryo Cryotherapy 09:54:37 CDT CPT-52201 First Vx - Ix admin for Medicare patients 09:13:10 CDT CPT-30619 Fluzone High-Dose Intramuscular Suspension 09:13:10 CDT CPT-G0439 Subsequent Annual Wellness Exam 09:41:17 CDT CPT-62114 Lipid - LAB USE ONLY 17:15:33 CDT CPT-88362 HGBA1C - LAB USE ONLY 17:15:33 CDT CPT-69715 CMP - LAB USE ONLY 17:15:33 CDT CPT-91506 Venipuncture Draw Fee 17:15:33 CDT CPT-[facility] Transitional Care Mgmt-High 11:01:28 BUILDING ESTIMATOR CPT-42435 First Vx - Ix admin for Medicare patients 17:33:39 CDT CPT-01262 Fluzone High-Dose Intramuscular Suspension 17:33:39 CDT CPT-G0438 Initial Annual Wellness Exam 08:57:30 CDT CPT-07846 Chest 2V Frontal and Lat - XRAY USE ONLY 09:00:14 CDT CPT-36520 Venipuncture Draw Fee 13:33:02 CDT CPT-37304 Bone Density 09:37:49 BUILDING ESTIMATOR CPT-57990 Fluzone High Dose 17:20:42 CDT CPT-88420 Prevnar 13 17:20:42 CDT CPT-69378 Administration 2+ single or combination vaccines inc oral 17:20:42 CDT CPT-19791 Administration single or combination vaccine inc oral 17 :20:42 CDT CPT-09251 Hand comp min 3V 09:24:38 CDT CPT-82299 Venipuncture Draw Fee 08:07:29 BUILDING ESTIMATOR CPT-31127 Venipuncture Draw Fee 09:02:51 BUILDING ESTIMATOR CPT-32033 Venipuncture Draw Fee 12:45:08 BUILDING ESTIMATOR CPT-11852 Venipuncture Draw Fee 09:25:31 CDT CPT-G0008 Administration of Influenza Virus Vaccine 14:41:29 CDT CPT-05376 Fluzone High-Dose Intramuscular Suspension 14:41:29 CDT CPT-Cryo Cryotherapy 11:48:20 CDT CPT-50080 EKG Trac and Interp 09:21:58 CDT CPT-91902 Chest 2V Frontal and Lat 09:21:58 CDT CPT-Cryo Cryotherapy 10:54:51 BUILDING ESTIMATOR CPT-44694 Administration 2+ single or combination vaccines inc oral 10:42:19 CDT CPT-00760 Administration single or combination vaccine inc oral 10 :42:19 CDT CPT-06832 Pneumovax 10:42:19 CDT CPT-09392 Influenza High Dose age 65+ 10:42:19 CDT CPT-69791 Administration single or combination vaccine inc oral 13 :18:54 CDT CPT-91130 Influenza High Dose age 65+ 13:18:54 CDT CPT-49656 Venipuncture Draw Fee 11:53:16 CDT CPT-59020 LS spine comp w obliq 11:03:13 CDT CPT-Cryo Cryotherapy 08:27:16 BUILDING ESTIMATOR CPT-08555 Administration single or combination vaccine inc oral 10 :56:34 CDT CPT-56711 Influenza High Dose age 65+ 10:56:34 CDT
--- OUTSIDE RECORDS SUMMARY | 2018-03-31 16:37 | XMS REPORT | Clinical Summary ---
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 Acute pharyngitis FH DIABETES ICD-V18.0 Inactive Simon [...] ICD-729.5 Inactive Simon Castillo MD Steroid use, usp ICD-V58.65 Inactive Simon Castillo MD Hand pain, bilateral ICD-729.5 Inactive Simon Castillo MD Medication List Medication Instructions Start Date Stop Date Generic Name NDC Status Provider Patient Instruction CLARITIN 10 MG TAB 1 tablet by mouth daily as needed for allergies LORATADINE [id number] Active Jillina Deepti HEMPHILL Active PREDNISONE 20 MG TAB 1 tablet daily for airway inflammation PREDNISONE 71326089469 Active 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 GLIMEPIRIDE 13476232595 Active Simon Castillo MD Active HYDROCODONE-ACETAMINOPHEN 5-325 MG TABS 1 tab by mouth 8 hours as needed for pain HYDROCODONE-ACETAMINOPHEN 30071178547 Active Simon Castillo MD Active TRAMADOL HCL 50 MG TABS 1 po q6hr PRN Pain TRAMADOL HCL 75512276574 No Longer Active Simon Castillo MD Active PREDNISONE 5 MG TAB 1-2 tabs daily for rheumatoid arthritis PREDNISONE 66923139693 Active Simon Castillo MD Active PREDNISONE 5 MG TABS 1 po qod PREDNISONE 65075495865 No Longer Active Simon Castillo MD Active SYMBICORT 160-4.5 MCG/ACT AERO 2 puff BID BUDESONIDE- FORMOTEROL FUMARATE 26759799013 No Longer Active Simon Castillo MD Active FLONASE 50 MCG/ACT SUSP 2 puffs in each nostril daily FLUTICASONE PROPIONATE 45976035618 No Longer Active Simon Castillo MD Active PREDNISONE 20 MG TAB 2 tabs daily for 5 days, then 1 daily for 5 days PREDNISONE 89839847066 No Longer Active Simon Castillo MD Active PREDNISONE 20 MG TAB 2 tabs daily for 5 days, then 1 daily for 5 days, then 0.5 for 4 days PREDNISONE 29640864447 No Longer Active Simon Castillo MD Active CLOTRIMAZOLE 1 % EXT CREA Apply to affected area of feet twice daily PRN Rash CLOTRIMAZOLE 98033140646 Active Simon Castillo MD Active PREDNISONE 20 MG TAB 2 tabs daily for 3 days, 1 tab daily for 3 days, 1/2 tab daily for 2 days PREDNISONE 03685517490 No Longer Active Simon Castillo MD Active AZITHROMYCIN 250 MG TABS 2 po qd x 1 day, then 1 po qd x 4 days AZITHROMYCIN 55142229939 No Longer Active Simon Castillo MD Active LISINOPRIL 10 MG TABS 1 tablet by mouth daily LISINOPRIL 76837839343 Active Simon Castillo MD Active CARVEDILOL 6.25 MG TABS 1 po BID CARVEDILOL 64655743793 Active Simon Castillo MD Active LISINOPRIL-HYDROCHLOROTHIAZIDE 20-12.5 MG TABS 1/2 tab by mouth daily LISINOPRIL-HYDROCHLOROTHIAZIDE 06960579322 No Longer Active Simon Castillo MD Active TRAMADOL HCL 50 MG TABS 1-2 tablets every 6 hours as needed for pain TRAMADOL HCL 50510432505 Active Simon Castillo MD Active PREDNISONE 5 MG TAB Take one po qod PREDNISONE 47188282565 No Longer Active Simon Castillo MD Active GLYBURIDE 5 MG TAB Take one by mouth daily GLYBURIDE 21948190716 No Longer Active Simon Castillo MD Active LEVAQUIN 750 MG TABS 1 po qod x 5 doses LEVOFLOXACIN 42128696104 No Longer Active Simon Castillo MD Active CETIRIZINE HCL 10 MG TABS 1 po qd as needed for allergies CETIRIZINE HCL 48733626744 No Longer Active Simon Castillo MD Active FISH OIL 1000 MG CPDR 1 pill by mouth twice daily for cholesterol OMEGA -3 FATTY ACIDS 52666119066 Active Simon Castillo MD Active BILBERRY CAPS 1 tab daily BILBERRY (VACCINIUM MYRTILLUS) CAPS 64633429529 Active Simon Castillo MD Active ATENOLOL 50 MG TABS Take one by mouth daily ATENOLOL 16695377552 No Longer Active Simon Castillo MD Active FLONASE 50 MCG/ACT SUSP 2 puffs in each nostril daily FLUTICASONE PROPIONATE 49380293736 No Longer Active Simon Castillo MD Active GLYBURIDE 5 MG TAB Take one by mouth daily GLYBURIDE 58239258818 No Longer Active Simon Castillo MD Active SYMBICORT 80-4.5 MCG/ACT AERO 2 puffs twice a day BUDESONIDE-FORMOTEROL FUMARATE 96832516873 No Longer Active Simon Castillo MD Active PREDNISONE 20 MG TAB 2 tabs daily for 4 days, 1 tab daily for 4 days, 1/2 tab daily for 4 days PREDNISONE 06377520044 No Longer Active Simon Castillo MD Active AMOXICILLIN 500 MG CAPS 2 po BID x 10 days AMOXICILLIN 65497474804 No Longer Active Simon Castillo MD Active METFORMIN HCL 1000 MG TABS 1 by mount twice a day METFORMIN HCL 73787487398 No Longer Active Simon Castillo MD Active LUTEIN-ZEAXANTHIN 6-1 MG TABS Take 2 by mouth daily LUTEIN-ZEAXANTHIN 15656998610 Active Simon Castillo MD Active IBUPROFEN 800 MG TABS Take 1 tab every 6 hrs prn IBUPROFEN 53919084188 No Longer Active Simon Castillo MD Active GLYBURIDE 2.5 MG TABS Take one by mouth daily GLYBURIDE 97095382854 No Longer Active Simon Castillo MD Active LANCETS MISC 2 qd LANCETS 80939938650 Active Pamela Conde Active ACACIA CONTOUR TEST STRP Use with testing twice daily GLUCOSE BLOOD 48734207880 Active Simon Castillo MD Active ACACIA ASPIRIN 325 MG TABS Take one by mouth daily ASPIRIN 76711105404 Active Pamela Conde Active GLYBURIDE 2.5 MG TABS Take one by mouth daily GLYBURIDE 2.5 MG TABS 150938 GLYBURIDE Inactive PREDNISONE 20 MG TAB 2 tabs daily for 4 days, 1 tab daily for 4 days, 1/2 tab daily for 4 days PREDNISONE 20 MG TAB 206072 PREDNISONE Inactive SYMBICORT 80-4.5 MCG/ACT AERO 2 puffs twice a day SYMBICORT 80-4.5 MCG/ACT AERO BUDESONIDE-FORMOTEROL FUMARATE Inactive FLONASE 50 MCG/ACT SUSP 2 puffs in each nostril daily FLONASE 50 MCG/ACT SUSP 753056 FLUTICASONE PROPIONATE Inactive ATENOLOL 50 MG TABS Take one by mouth daily ATENOLOL 50 MG TABS 164888 ATENOLOL Inactive CETIRIZINE HCL 10 MG TABS 1 po qd as needed for allergies CETIRIZINE HCL 10 MG TABS 2787572 CETIRIZINE HCL Inactive LEVAQUIN 750 MG TABS 1 po qod x 5 doses LEVAQUIN 750 MG TABS 182290 LEVOFLOXACIN Inactive GLYBURIDE 5 MG TAB Take one by mouth daily GLYBURIDE 5 MG TAB 128696 GLYBURIDE Inactive PREDNISONE 5 MG TAB Take one po qod PREDNISONE 5 MG TAB 856685 PREDNISONE Inactive PREDNISONE 20 MG TAB 2 tabs daily for 5 days, then 1 daily for 5 days PREDNISONE 20 MG TAB 539983 PREDNISONE Inactive FLONASE 50 MCG/ACT SUSP 2 puffs in each nostril daily FLONASE 50 MCG/ACT SUSP 005282 FLUTICASONE PROPIONATE Inactive SYMBICORT 160-4.5 MCG/ACT AERO 2 puff BID SYMBICORT 160-4.5 MCG/ACT AERO BUDESONIDE-FORMOTEROL FUMARATE Inactive PREDNISONE 5 MG TABS 1 po qod PREDNISONE 5 MG TABS 080790 PREDNISONE Inactive AMOXICILLIN 500 MG CAPS 2 po BID x 10 days AMOXICILLIN 500 MG CAPS 710366 AMOXICILLIN Inactive GLYBURIDE 5 MG TAB Take one by mouth daily GLYBURIDE 5 MG TAB 996434 GLYBURIDE Inactive AZITHROMYCIN 250 MG TABS 2 po qd x 1 day, then 1 po qd x 4 days AZITHROMYCIN 250 MG TABS 5745000 AZITHROMYCIN Inactive PREDNISONE 20 MG TAB 2 tabs daily for 3 days, 1 tab daily for 3 days, 1/2 tab daily for 2 days PREDNISONE 20 MG TAB 017792 PREDNISONE Inactive PREDNISONE 20 MG TAB 2 tabs daily for 5 days, then 1 daily for 5 days, then 0.5 for 4 days PREDNISONE 20 MG TAB 999483 PREDNISONE Inactive AZITHROMYCIN 250 MG TABS 2 po qd x 1 day, then 1 po qd x 4 days AZITHROMYCIN 250 MG TABS 4089051 AZITHROMYCIN Inactive Immunizations Vaccine Administration Date Value [...] Panel - Chemistry sodium, serum 132 mmol/L 156-979 9387/10/26 carbon dioxide, venous blood 22.8 mmol/L 21.0-32.0 [...] Panel - Chemistry sodium, serum 139 mmol/L 916-168 1216/03/17 carbon dioxide, venous blood 29.0 mmol/L 21.0-32.0 [...] Rate - Chemistry sodium, serum 136 mmol/L 645-149 9229/09/18 carbon dioxide, venous blood 24.3 mmol/L 21.0-32.0 [...] HGBA1C - Chemistry sodium, serum 139 mmol/L 609-424 8616/07/09 potassium, serum 5.4 mmol/L 3.5-5.2 chloride, serum [...] 8.5 % 4.3-6.0 sodium, serum 137 mmol/L 085-306 7189/02/12 potassium, serum 5.1 mmol/L 3.5-5.2 chloride, serum 103 mmol/L 98-107 carbon dioxide, venous blood 24.4 mmol/L 21.0-32.0 blood glucose 261 mg/dL 65-110 calcium, serum 9.0 mg/dL 8.5-10.1 urea nitrogen, blood 44 mg/dL 7-18 creatinine, serum 2.37 mg/dL 0.55-1.30 Lab Report: Lipid Panel - Chemistry cholesterol, serum 139 mg/dL 342-412 7247/09/10 triglyceride, serum, fasting 176 mg/dL 30-200 HDL cholesterol, serum 45 mg/dL 32-96 LDL cholesterol, serum 59 mg/dL 0-130 Lab Report: MICROALBUMIN - Chemistry albumin/creatinine ratio, urine 30 - 300 mg/g mg/g{creat} 0-29 Lab Report: MICROALBUMIN - Lab microalbumin, urine 30 0-19 Encounters Code Encounter Date Provider Facility CPT-[id number] Level 3 Est. Patient 09:08:44 CDT Giles Tatum APRN [facility] CPT-01056 Level 4 Est. Patient 09:17:32 [employer] Simon Castillo MD [facility] CPT-04041 Level 3 Est. Patient 11:22:22 [employer] Simon Castillo MD [facility] CPT-73169 Level 3 Est. Patient 09:02:14 CDT Simon Castillo MD [facility] CPT-28197 Level 4 Est. Patient 08:47:25 CDT Simon Castillo MD [facility] CPT-60547 Level 4 Est. Patient 10:17:25 CDT Simon Castillo MD [facility] CPT-18654 Level 4 Est. Patient 10:10:09 [employer] Simon Castillo MD [facility] CPT-64174 Level 4 Est. Patient 11:48:19 CDT Simon Castillo MD [facility] CPT-92234 Level 4 Est. Patient 08:59:29 CDT Simon Castillo MD [facility] CPT-58389 Level 4 Est. Patient 10:52:51 [employer] Simon Castillo MD [facility] CPT-22193 Level 4 Est. Patient 11:50:30 CDT Simon Castillo MD [facility] CPT-16739 Level 4 Est. Patient 09:54:46 CDT Simon Castillo MD [facility] CPT-36237 Level 3 Est. Patient 11:10:14 CDT Simon Castillo MD [facility] CPT-10590 Level 4 Est. Patient 09:44:02 CDT Simon Castillo MD [facility] CPT-54391 Level 3 Est. Patient 09:27:48 CDT Simon Castillo MD [facility] CPT-03732 Level 3 Est. Patient 09:58:06 [employer] Simon Castillo MD [facility] CPT-45004 Level 3 Est. Patient 09:51:35 CDT Simon Castillo MD [facility] Procedures Code Procedure Name Date Entry Date Standard Description CPT-40106 Venipuncture Draw Fee 13:33:02 CDT CPT-23383 Bone Density 09:37:49 [employer] CPT-27631 Fluzone High Dose 17:20:42 CDT CPT-21200 Prevnar 13 17:20:42 CDT CPT-17150 Administration 2+ single or combination vaccines inc oral 17:20:42 CDT CPT-14606 Administration single or combination vaccine inc oral 17 :20:42 CDT CPT-25167 Hand comp min 3V 09:24:38 CDT CPT-56354 Venipuncture Draw Fee 08:07:29 [employer] CPT-88897 Venipuncture Draw Fee 09:02:51 [employer] CPT-74845 Venipuncture Draw Fee 12:45:08 [employer] CPT-27758 Venipuncture Draw Fee 09:25:31 CDT CPT-G0008 Administration of Influenza Virus Vaccine 14:41:29 CDT CPT-05086 Fluzone High-Dose Intramuscular Suspension 14:41:29 CDT CPT-Cryo Cryotherapy 11:48:20 CDT CPT-83228 EKG Trac and Interp 09:21:58 CDT CPT-54787 Chest 2V Frontal and Lat 09:21:58 CDT CPT-Cryo Cryotherapy 10:54:51 [employer] CPT-80563 Administration 2+ single or combination vaccines inc oral 10:42:19 CDT CPT-85552 Administration single or combination vaccine inc oral 10 :42:19 CDT CPT-61781 Pneumovax 10:42:19 CDT CPT-07551 Influenza High Dose age 65+ 10:42:19 CDT CPT-53343 Administration single or combination vaccine inc oral 13 :18:54 CDT CPT-05447 Influenza High Dose age 65+ 13:18:54 CDT CPT-19869 Venipuncture Draw Fee 11:53:16 CDT CPT-79913 LS spine comp w obliq 11:03:13 CDT CPT-Cryo Cryotherapy 08:27:16 [employer] CPT-80680 Administration single or combination vaccine inc oral 10 :56:34 CDT CPT-82103 Influenza High Dose age 65+ 10:56:34 CDT
--- OUTSIDE RECORDS SUMMARY | 2018-03-31 16:38 | XMS REPORT | Clinical Summary ---
Author Author Admin, E Organization [employer] Address Unknown Phone Unavailable Allergies, Adverse Reactions, Alerts Allergy Name Reaction Description Start Date Severity Status Provider No Known Allergies Dollyshira oWng BALDEMAR Conditions or Problems Problem Name Problem [...] Chronic kidney disease stage III 585.3 Active Siomn Castillo MD Chronic kidney disease, Stage III [...] Simon Castillo MD Rheumatoid arthritis Steroid use, intermodal customer service V58.65 Resolved Simon Castillo MD Long-term (current) [...] Steroid use, intermodal customer service ICD-V58.65 Kerry Castillo MD Hand pain, bilateral [...] MG ORAL TABS 1 po BID GLIMEPIRIDE 47227171465 Active Simon Castillo MD Active ASPIRIN EC 81 MG ORAL TBEC 1 po qd ASPIRIN 69908787654 Active Simon Castillo MD Active CLOTRIMAZOLE 1 % EXT CREA Apply to affected area of feet twice daily PRN Rash CLOTRIMAZOLE 66431105380 No Longer Active Simon Castillo MD Active PREDNISONE 5 MG TAB 1 po BID PREDNISONE 22668513776 Active Simon Castillo MD Active FISH OIL 1000 MG CPDR 1 po BID OMEGA-3 FATTY ACIDS 65448904203 Active Simon Castillo MD Active LISINOPRIL 10 MG TABS 1 p qd LISINOPRIL 94340519024 Active Simon Castillo MD Active CLARITIN 10 MG TAB 1 tablet by mouth daily as needed for allergies LORATADINE 97469145830 No Longer Active Simon Castillo MD Active TRIAMCINOLONE ACETONIDE 0.1 % OINT Apply to affected areas TID for up to 2 weeks TRIAMCINOLONE ACETONIDE 22583040013 No Longer Active Simon Castillo MD Active LASIX 20 MG TAB 1 tablet by mouth daily x 2 days FUROSEMIDE 68326357525 No Longer Active Simon Castillo MD Active SULFASALAZINE 500 MG ORAL TBEC 2 tabs BID SULFASALAZINE 18237908234 No Longer Active Neto Oshea DO Active PREDNISONE 20 MG TAB 2 tabs daily for 3 days, 1 tab daily for 3 days, 1/2 tab daily for 2 days PREDNISONE 60530731500 No Longer Active 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 PREDNISONE 20 MG TAB 1 tablet daily for airway inflammation 02/25 PREDNISONE 68452511406 No Longer Active 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 AZITHROMYCIN 250 MG TABS 2 po qd x 1 day, then 1 po qd x 4 days AZITHROMYCIN 73050176470 No Longer Active 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 HYDROCODONE-ACETAMINOPHEN 5-325 MG TABS 1 tab by mouth 8 hours as needed for pain HYDROCODONE-ACETAMINOPHEN 19642427564 Active Simon Castillo MD Active TRAMADOL HCL 50 MG TABS 1 po q6hr PRN Pain TRAMADOL HCL 98083719070 No Longer Active Simon Castillo MD Active PREDNISONE 5 MG TABS 1 po qod PREDNISONE 22393430420 No Longer Active Simon Castillo MD Active SYMBICORT 160-4.5 MCG/ACT AERO 2 puff BID BUDESONIDE- FORMOTEROL FUMARATE 75007246673 No Longer Active Simon Castillo MD Active FLONASE 50 MCG/ACT SUSP 2 puffs in each nostril daily FLUTICASONE PROPIONATE 13943118952 No Longer Active iSmon Castillo MD Active PREDNISONE 20 MG TAB 2 tabs daily for 5 days, then 1 daily for 5 days PREDNISONE 65035584762 No Longer Active Simon Castillo MD Active PREDNISONE 20 MG TAB 2 tabs daily for 5 days, then 1 daily for 5 days, then 0.5 for 4 days PREDNISONE 88962080984 No Longer Active Simon Castillo MD Active PREDNISONE 20 MG TAB 2 tabs daily for 3 days, 1 tab daily for 3 days, 1/2 tab daily for 2 days PREDNISONE 76713249932 No Longer Active Simon Castillo MD Active AZITHROMYCIN 250 MG TABS 2 po qd x 1 day, then 1 po qd x 4 days AZITHROMYCIN 27426044368 No Longer Active Simon Castillo MD Active CARVEDILOL 6.25 MG TABS 1 po BID CARVEDILOL 68383856635 Active Simon Castillo MD Active LISINOPRIL-HYDROCHLOROTHIAZIDE 20-12.5 MG TABS 1/2 tab by mouth daily LISINOPRIL-HYDROCHLOROTHIAZIDE 69550136857 No Longer Active Simon Castillo MD Active TRAMADOL HCL 50 MG TABS 1-2 tablets every 6 hours as needed for pain TRAMADOL HCL 61798131286 Active 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 PREDNISONE 5 MG TAB Take one po qod PREDNISONE 91525707607 No Longer Active Simon Castillo MD Active GLYBURIDE 5 MG TAB Take one by mouth daily GLYBURIDE 01194457486 No Longer Active Simon Castillo MD Active LEVAQUIN 750 MG TABS 1 po qod x 5 doses LEVOFLOXACIN 50495229714 No Longer Active Simon Castilol MD Active CETIRIZINE HCL 10 MG TABS 1 po qd as needed for allergies CETIRIZINE HCL 91650062302 No Longer Active Simon Castillo MD Active BILBERRY CAPS 1 tab daily BILBERRY (VACCINIUM MYRTILLUS) CAPS 46439636272 Active Simon Castillo MD Active ATENOLOL 50 MG TABS Take one by mouth daily ATENOLOL 44438625751 No Longer Active Simon Castillo MD Active FLONASE 50 MCG/ACT SUSP 2 puffs in each nostril daily FLUTICASONE PROPIONATE 87728467837 No Longer Active Simon Castillo MD Active GLYBURIDE 5 MG TAB Take one by mouth daily GLYBURIDE 42205624770 No Longer Active Simon Castillo MD Active SYMBICORT 80-4.5 MCG/ACT AERO 2 puffs twice a day BUDESONIDE-FORMOTEROL FUMARATE 58066105099 No Longer Active Simon Castillo MD Active PREDNISONE 20 MG TAB 2 tabs daily for 4 days, 1 tab daily for 4 days, 1/2 tab daily for 4 days PREDNISONE 01121304307 No Longer Active Simon Castillo MD Active AMOXICILLIN 500 MG CAPS 2 po BID x 10 days AMOXICILLIN 96564776545 No Longer Active Simon Castillo MD Active METFORMIN HCL 1000 MG TABS 1 [address] [place] twice a day METFORMIN HCL 51507844988 No Longer Active Simon Castillo MD Active LUTEIN-ZEAXANTHIN 6-1 MG TABS Take 2 by mouth daily LUTEIN-ZEAXANTHIN 20926514064 Active Simon Castillo MD Active IBUPROFEN 800 MG TABS Take 1 tab every 6 hrs prn IBUPROFEN 49859671464 No Longer Active Simon Castillo MD Active GLYBURIDE 2.5 MG TABS Take one by mouth daily GLYBURIDE 00466787129 No Longer Active Simon Castillo MD Active LANCETS MISC 2 qd LANCETS 05253978014 Active Pamela Conde Active ACACIA CONTOUR TEST STRP Use with testing twice daily GLUCOSE BLOOD 80593782877 Active Simon Castillo MD Active GLYBURIDE 2.5 MG TABS Take one by mouth daily GLYBURIDE 2.5 MG TABS 224376 GLYBURIDE Inactive PREDNISONE 20 MG TAB 2 tabs daily for 4 days, 1 tab daily for 4 days, 1/2 tab daily for 4 days PREDNISONE 20 MG TAB 627356 PREDNISONE Inactive SYMBICORT 80-4.5 MCG/ACT AERO 2 puffs twice a day SYMBICORT 80-4.5 MCG/ACT AERO BUDESONIDE-FORMOTEROL FUMARATE Inactive FLONASE 50 MCG/ACT SUSP 2 puffs in each nostril daily FLONASE 50 MCG/ACT SUSP FLUTICASONE PROPIONATE Inactive ATENOLOL 50 MG TABS Take one by mouth daily ATENOLOL 50 MG TABS 342328 ATENOLOL Inactive CETIRIZINE HCL 10 MG TABS 1 po qd as needed for allergies CETIRIZINE HCL 10 MG TABS 6234293 CETIRIZINE HCL Inactive LEVAQUIN 750 MG TABS 1 po qod x 5 doses LEVAQUIN 750 MG TABS 640754 LEVOFLOXACIN Inactive GLYBURIDE 5 MG TAB Take one by mouth daily GLYBURIDE 5 MG TAB 668608 GLYBURIDE Inactive PREDNISONE 5 MG TAB Take one po qod PREDNISONE 5 MG TAB 457132 PREDNISONE Inactive PREDNISONE 20 MG TAB 2 tabs daily for 5 days, then 1 daily for 5 days PREDNISONE 20 MG TAB 242341 PREDNISONE Inactive FLONASE 50 MCG/ACT SUSP 2 puffs in each nostril daily FLONASE 50 MCG/ACT SUSP FLUTICASONE PROPIONATE Inactive SYMBICORT 160-4.5 MCG/ACT AERO 2 puff BID SYMBICORT 160-4.5 MCG/ACT AERO BUDESONIDE-FORMOTEROL FUMARATE Inactive PREDNISONE 5 MG TABS 1 po qod PREDNISONE 5 MG TABS 811226 PREDNISONE Inactive PREDNISONE 20 MG TAB 1 tablet daily for airway inflammation 02/25 PREDNISONE 20 MG TAB 675447 PREDNISONE Inactive SULFASALAZINE 500 MG ORAL TBEC 2 tabs BID SULFASALAZINE 500 MG ORAL TBEC 774580 SULFASALAZINE Inactive LASIX 20 MG TAB 1 tablet by mouth daily x 2 days LASIX 20 MG TAB 421501 FUROSEMIDE Inactive CLARITIN 10 MG TAB 1 tablet by mouth daily as needed for allergies CLARITIN 10 MG TAB 384296 LORATADINE Inactive CLOTRIMAZOLE 1 % EXT CREA Apply to affected area of feet twice daily PRN Rash CLOTRIMAZOLE 1 % EXT CREA 074890 CLOTRIMAZOLE Inactive AMOXICILLIN 500 MG CAPS 2 po BID x 10 days AMOXICILLIN 500 MG CAPS 862938 AMOXICILLIN Inactive GLYBURIDE 5 MG TAB Take one by mouth daily GLYBURIDE 5 MG TAB 020825 GLYBURIDE Inactive AZITHROMYCIN 250 MG TABS 2 po qd x 1 day, then 1 po qd x 4 days AZITHROMYCIN 250 MG TABS 1436064 AZITHROMYCIN Inactive PREDNISONE 20 MG TAB 2 tabs daily for 3 days, 1 tab daily for 3 days, 1/2 tab daily for 2 days PREDNISONE 20 MG TAB 644509 PREDNISONE Inactive PREDNISONE 20 MG TAB 2 tabs daily for 5 days, then 1 daily for 5 days, then 0.5 for 4 days PREDNISONE 20 MG TAB 039734 PREDNISONE Inactive AZITHROMYCIN 250 MG TABS 2 po qd x 1 day, then 1 po qd x 4 days AZITHROMYCIN 250 MG TABS 7688587 AZITHROMYCIN Inactive PREDNISONE 20 MG TAB 2 tabs daily for 3 days, 1 tab daily for 3 days, 1/2 tab daily for 2 days PREDNISONE 20 MG TAB 537929 PREDNISONE Inactive TRIAMCINOLONE ACETONIDE 0.1 % OINT Apply to affected areas TID for up to 2 weeks TRIAMCINOLONE ACETONIDE 0.1 % OINT 7270244 TRIAMCINOLONE ACETONIDE Inactive Immunizations Vaccine Administration Date [...] Panel - Chemistry sodium, serum 137 mmol/L 904-643 4635/06/06 carbon dioxide, venous blood 24.9 mmol/L 21.0-32.0 [...] Panel - Chemistry cholesterol, serum 126 mg/dL 843-483 0655/02/07 triglyceride, serum, fasting 83 mg/dL 30-200 HDL cholesterol, serum 70 mg/dL 32-96 LDL cholesterol, serum 39 mg/dL 0-130 hemoglobin A1C, blood, as % of total hemoglobin 8.3 % 4.3-6.0 sodium, serum 141 mmol/L 500-880 4864/02/07 carbon dioxide, venous blood 26.0 mmol/L 21.0-32.0 [...] 2.6-7.2 Encounters Code Encounter Date Provider Facility CPT-20498 Level 4 Est. Patient 16:11:23 CDT Simon Castillo MD [facility] CPT-38642 Level 4 Est. Patient 09:29:28 SPLICER HELPER Simon Castillo MD [facility] CPT-70501 Level 3 Est. Patient 09:18:25 CDT Simon Castillo MD [facility] CPT-10791 Level 4 Est. Patient 11:51:23 CDT Simon Castillo MD [facility] CPT-40655 Level 4 Est. Patient 14:32:04 CDT Neto Oshea DO [facility] CPT-95457 Level 3 Est. Patient 08:41:43 CDT Giles Tatum [facility] CPT-47808 Level 3 Est. Patient 08:40:53 CDT Giles Tatum [facility] CPT-11630 Level 3 Est. Patient 08:36:52 CDT Giles Salcidol [facility] CPT-35505 Level 3 Est. Patient 09:08:44 CDT Giles Salcidol [facility] CPT-23408 Level 4 Est. Patient 09:17:32 SPLICER HELPER Simon Castillo MD [facility] CPT-96318 Level 3 Est. Patient 11:22:22 SPLICER HELPER Simon Castillo MD [facility] CPT-14498 Level 3 Est. Patient 09:02:14 CDT Simon Castillo MD [facility] CPT-79974 Level 4 Est. Patient 08:47:25 CDT Simon Castillo MD [facility] CPT-43574 Level 4 Est. Patient 10:17:25 CDT Simon Castillo MD [facility] CPT-50512 Level 4 Est. Patient 10:10:09 SPLICER HELPER Simon Castillo MD [facility] CPT-50226 Level 4 Est. Patient 11:48:19 CDT Simon Castillo MD [facility] CPT-57829 Level 4 Est. Patient 08:59:29 CDT Simon Castillo MD [facility] CPT-23000 Level 4 Est. Patient 10:52:51 SPLICER HELPER Simon Castillo MD [facility] CPT-85215 Level 4 Est. Patient 11:50:30 CDT Simon Castillo MD [facility] CPT-54205 Level 4 Est. Patient 09:54:46 CDT Simon Castillo MD [facility] CPT-51513 Level 3 Est. Patient 11:10:14 CDT Simon Castillo MD [facility] CPT-22111 Level 4 Est. Patient 09:44:02 CDT Simon Castillo MD [facility] CPT-21201 Level 3 Est. Patient 09:27:48 CDT Simon Castillo MD [facility] CPT-36588 Level 3 Est. Patient 09:58:06 SPLICER HELPER Simon Castillo MD [facility] CPT-95121 Level 3 Est. Patient 09:51:35 CDT Simon Castillo MD [facility] Procedures Code Procedure Name Date Entry Date Standard Description CPT-12323 Lipid - LAB USE ONLY 17:15:33 CDT CPT-80597 HGBA1C - LAB USE ONLY 17:15:33 CDT CPT-00115 CMP - LAB USE ONLY 17:15:33 CDT CPT-24760 Venipuncture Draw Fee 17:15:33 CDT CPT-[facility] Transitional Care Mgmt-High 11:01:28 SPLICER HELPER CPT-26564 First Vx - Ix admin for Medicare patients 17:33:39 CDT CPT-87276 Fluzone High-Dose Intramuscular Suspension 17:33:39 CDT CPT-G0438 Initial Annual Wellness Exam 08:57:30 CDT CPT-07833 Chest 2V Frontal and Lat - XRAY USE ONLY 09:00:14 CDT CPT-11818 Venipuncture Draw Fee 13:33:02 CDT CPT-51748 Bone Density 09:37:49 SPLICER HELPER CPT-30278 Fluzone High Dose 17:20:42 CDT CPT-78756 Prevnar 13 17:20:42 CDT CPT-70015 Administration 2+ single or combination vaccines inc oral 17:20:42 CDT CPT-46064 Administration single or combination vaccine inc oral 17 :20:42 CDT CPT-90888 Hand comp min 3V 09:24:38 CDT CPT-74564 Venipuncture Draw Fee 08:07:29 SPLICER HELPER CPT-71985 Venipuncture Draw Fee 09:02:51 SPLICER HELPER CPT-63110 Venipuncture Draw Fee 12:45:08 SPLICER HELPER CPT-13516 Venipuncture Draw Fee 09:25:31 CDT CPT-G0008 Administration of Influenza Virus Vaccine 14:41:29 CDT CPT-88863 Fluzone High-Dose Intramuscular Suspension 14:41:29 CDT CPT-Cryo Cryotherapy 11:48:20 CDT CPT-05877 EKG Trac and Interp 09:21:58 CDT CPT-04342 Chest 2V Frontal and Lat 09:21:58 CDT CPT-Cryo Cryotherapy 10:54:51 SPLICER HELPER CPT-51975 Administration 2+ single or combination vaccines inc oral 10:42:19 CDT CPT-18018 Administration single or combination vaccine inc oral 10 :42:19 CDT CPT-44462 Pneumovax 10:42:19 CDT CPT-22946 Influenza High Dose age 65+ 10:42:19 CDT CPT-46904 Administration single or combination vaccine inc oral 13 :18:54 CDT CPT-95956 Influenza High Dose age 65+ 13:18:54 CDT CPT-85434 Venipuncture Draw Fee 11:53:16 CDT CPT-41936 LS spine comp w obliq 11:03:13 CDT CPT-Cryo Cryotherapy 08:27:16 SPLICER HELPER CPT-72588 Administration single or combination vaccine inc oral 10 :56:34 CDT CPT-03930 Influenza High Dose age 65+ 10:56:34 CDT
--- OUTSIDE RECORDS SUMMARY | 2018-03-31 16:39 | XMS REPORT | Clinical Summary ---
Author Author Admin, RAFFI Organization [facility] Address Unknown Phone Unavailable Allergies, Adverse Reactions, Alerts Allergy Name Reaction Description Start Date Severity Status Provider No Known Allergies [facility] Conditions or Problems Problem Name Problem [...] Castillo MD Acute bronchitis Tinea pedis 110.4 Active Simon Castillo MD Dermatophytosis of foot DIABETES ICD-V18.0 Inactive Simon Castillo MD FH LUNG CANCER ICD-V16.1 Inactive Simon Castillo MD ABDOMINAL TENDERNESS ICD-789.60 Inactive Simno Castillo MD CHEST WALL PAIN, HX OF [...] Inactive Simon Castillo MD Bronchitis, acute ICD-466.0 Kerry Castillo MD Medication List Medication Instructions Start Date Stop Date Generic Name NDC Status Provider Patient Instruction FLONASE 50 MCG/ACT SUSP 2 puffs in each nostril daily FLUTICASONE PROPIONATE 08025163386 Active Simon Castillo MD Active CLOTRIMAZOLE 1 % EXT CREA Apply to affected area of feet twice daily PRN Rash CLOTRIMAZOLE 02464297398 Active Simon Castillo MD Active SYMBICORT 160-4.5 MCG/ACT AERO 2 puff BID BUDESONIDE- FORMOTEROL FUMARATE 89185047652 Active Simon Castillo MD Active PREDNISONE 20 MG TAB 2 tabs daily for 3 days, 1 tab daily for 3 days, 1/2 tab daily for 2 days PREDNISONE 18492279336 No Longer Active Simon Castillo MD Active AZITHROMYCIN 250 MG TABS 2 po qd x 1 day, then 1 po qd x 4 days AZITHROMYCIN 83993681005 No Longer Active Simon Castillo MD Active LISINOPRIL 10 MG TABS 1 tablet by mouth daily LISINOPRIL 08561600077 Active Simon Castillo MD Active GLIMEPIRIDE 1 MG TABS 1 po q a.m. GLIMEPIRIDE 72797777481 Active Simon Castillo MD Active CARVEDILOL 6.25 MG TABS 1 po BID CARVEDILOL 88645575251 Active Simon Castillo MD Active LISINOPRIL-HYDROCHLOROTHIAZIDE 20-12.5 MG TABS 1/2 tab by mouth daily LISINOPRIL-HYDROCHLOROTHIAZIDE 92154936344 No Longer Active Simon Castillo MD Active PREDNISONE 5 MG TABS 1 po qod PREDNISONE 65220657547 Active Simon Castillo MD Active TRAMADOL HCL 50 MG TABS 1-2 tablets every 6 hours as needed for pain TRAMADOL HCL 16257740674 Active Simon Castillo MD Active PREDNISONE 5 MG TAB Take one po qod PREDNISONE 84322409538 No Longer Active Simon Castillo MD Active GLYBURIDE 5 MG TAB Take one by mouth daily GLYBURIDE 03381265988 No Longer Active Simon Castillo MD Active LEVAQUIN 750 MG TABS 1 po qod x 5 doses LEVOFLOXACIN 84797979727 No Longer Active Simon Castillo MD Active CETIRIZINE HCL 10 MG TABS 1 po qd as needed for allergies CETIRIZINE HCL 43892232756 No Longer Active Simon Castillo MD Active FISH OIL 1000 MG CPDR 1 pill by mouth twice daily for cholesterol OMEGA -3 FATTY ACIDS 04519542695 Active Simon Castillo MD Active BILBERRY CAPS 1 tab daily BILBERRY (VACCINIUM MYRTILLUS) CAPS 37374090269 Active Simon Castillo MD Active ATENOLOL 50 MG TABS Take one by mouth daily ATENOLOL 22372049321 No Longer Active Simon Castillo MD Active FLONASE 50 MCG/ACT SUSP 2 puffs in each nostril daily FLUTICASONE PROPIONATE 91420363003 No Longer Active Simon Castillo MD Active GLYBURIDE 5 MG TAB Take one by mouth daily GLYBURIDE 47038402280 No Longer Active Simon Castillo MD Active SYMBICORT 80-4.5 MCG/ACT AERO 2 puffs twice a day BUDESONIDE-FORMOTEROL FUMARATE 30835321303 No Longer Active Simon Castillo MD Active PREDNISONE 20 MG TAB 2 tabs daily for 4 days, 1 tab daily for 4 days, 1/2 tab daily for 4 days PREDNISONE 40536807269 No Longer Active Simon Castillo MD Active AMOXICILLIN 500 MG CAPS 2 po BID x 10 days AMOXICILLIN 60546614761 No Longer Active Simon Castillo MD Active METFORMIN HCL 1000 MG TABS 1 by mounth twice a day METFORMIN HCL 50115416806 No Longer Active Simon Castillo MD Active LUTEIN-ZEAXANTHIN 6-1 MG TABS Take 2 by mouth daily LUTEIN-ZEAXANTHIN 34643476294 Active Simon Castillo MD Active IBUPROFEN 800 MG TABS Take 1 tab every 6 hrs prn IBUPROFEN 90091795447 No Longer Active Simon Castillo MD Active GLYBURIDE 2.5 MG TABS Take one by mouth daily GLYBURIDE 55982149836 No Longer Active Simon Castillo MD Active LANCETS MISC 2 qd LANCETS 63766835474 Active Pamela Conde Active ACACIA CONTOUR TEST STRP Use with testing twice daily GLUCOSE BLOOD 37824342449 Active Pamela Conde Active ACACIA ASPIRIN 325 MG TABS Take one by mouth daily ASPIRIN 73848844677 Active Pamela Conde Active GLYBURIDE 2.5 MG TABS Take one by mouth daily GLYBURIDE 2.5 MG TABS 588069 GLYBURIDE Inactive PREDNISONE 20 MG TAB 2 tabs daily for 4 days, 1 tab daily for 4 days, 1/2 tab daily for 4 days PREDNISONE 20 MG TAB 591840 PREDNISONE Inactive SYMBICORT 80-4.5 MCG/ACT AERO 2 puffs twice a day SYMBICORT 80-4.5 MCG/ACT AERO BUDESONIDE-FORMOTEROL FUMARATE Inactive FLONASE 50 MCG/ACT SUSP 2 puffs in each nostril daily FLONASE 50 MCG/ACT SUSP 210765 FLUTICASONE PROPIONATE Inactive ATENOLOL 50 MG TABS Take one by mouth daily ATENOLOL 50 MG TABS 461949 ATENOLOL Inactive CETIRIZINE HCL 10 MG TABS 1 po qd as needed for allergies CETIRIZINE HCL 10 MG TABS 3455777 CETIRIZINE HCL Inactive LEVAQUIN 750 MG TABS 1 po qod x 5 doses LEVAQUIN 750 MG TABS 343807 LEVOFLOXACIN Inactive GLYBURIDE 5 MG TAB Take one by mouth daily GLYBURIDE 5 MG TAB 240615 GLYBURIDE Inactive PREDNISONE 5 MG TAB Take one po qod PREDNISONE 5 MG TAB 685771 PREDNISONE Inactive AMOXICILLIN 500 MG CAPS 2 po BID x 10 days AMOXICILLIN 500 MG CAPS 616497 AMOXICILLIN Inactive GLYBURIDE 5 MG TAB Take one by mouth daily GLYBURIDE 5 MG TAB 794796 GLYBURIDE Inactive AZITHROMYCIN 250 MG TABS 2 po qd x 1 day, then 1 po qd x 4 days AZITHROMYCIN 250 MG TABS 2544039 AZITHROMYCIN Inactive PREDNISONE 20 MG TAB 2 tabs daily for 3 days, 1 tab daily for 3 days, 1/2 tab daily for 2 days PREDNISONE 20 MG TAB 323256 PREDNISONE Inactive Immunizations Vaccine Administration Date Value Standard Description pneumococcal immunization administered Pneumovax 23 [CVX33] pneumococcal polysaccharide vaccine, 23 valent Vital Signs Date Name Value Unit Range Description blood pressure, diastolic - 8462-4 60 mm[Hg] [...] Weight Measured blood pressure, diastolic - 8462-4 92 mm[Hg] BP castillo blood pressure, systolic - 8480-6 167 mm[Hg] BP sys pulse rate E&M - 8867-4 99 /min Heart rate temperature E&M 98.0 [degF] Body temperature weight E&M - 3141-9 202.6 [lb_av] Weight Measured Diagnostic Results Date Name Value Unit Range Description Lab Report: CBC, Renal Panel - Chemistry sodium, serum 137 mmol/L 576-684 3548/10/14 potassium, serum 5.6 mmol/L 3.5-5.2 chloride, serum 103 mmol/L 98-107 carbon dioxide, venous blood 24.9 mmol/L 21.0-32.0 blood glucose 200 mg/dL 65-110 urea nitrogen, blood 43 mg/dL 7-18 creatinine, serum 2.60 mg/dL 0.60-1.30 calcium, serum 9.1 mg/dL 8.5-10.1 sodium, serum 139 mmol/L 178-932 8252/11/13 potassium, serum 5.8 mmol/L 3.5-5.2 chloride, serum 105 mmol/L 98-107 carbon dioxide, venous blood 22.2 mmol/L 21.0-32.0 blood glucose 156 mg/dL 65-110 urea nitrogen, blood 49 mg/dL 7-18 creatinine, serum 2.30 mg/dL 0.60-1.30 calcium, serum 9.2 mg/dL 8.5-10.1 sodium, serum 140 mmol/L 013-103 7454/12/12 potassium, serum 5.5 mmol/L 3.5-5.2 chloride, serum 104 mmol/L 98-107 carbon dioxide, venous blood 24.8 mmol/L 21.0-32.0 blood glucose 174 mg/dL 65-110 urea nitrogen, blood 40 mg/dL 7-18 creatinine, serum 2.50 mg/dL 0.60-1.30 calcium, serum 8.9 mg/dL 8.5-10.1 Lab Report: CBC, Renal Panel - Hematology leukocyte count, blood 11.5 10^3/MM^3 10*3/mm3 4.6-10.2 erythrocyte (RBC) count 4.82 10^6/MM^3 10*6/mm3 4.69-6.13 hemoglobin, blood 14.5 g/dL 13.5-17.5 hematocrit, blood 43.6 % 41.0-53.0 mean corpuscular volume, RBC 90 fL 80-97 mean corpuscular hemoglobin, RBC 30.0 pg 27.0-31.2 mean corpuscular hemoglobin concentration, RBC 33.2 G/DL % 31.8- 35.4 red blood cell distribution width 14.6 % 11.6-14.8 platelet count 217 10^3/MM^3 10*3/mm3 534-954 1393/10/14 mean corpuscular volume, RBC 91 fL 80-97 hematocrit, blood 42.4 % 41.0-53.0 hemoglobin, blood 13.9 g/dL 13.5-17.5 erythrocyte (RBC) count 4.67 10^6/MM^3 10*6/mm3 4.69-6.13 leukocyte count, blood 9.2 10^3/MM^3 10*3/mm3 4.6-10.2 leukocyte count, blood 9.7 10^3/MM^3 10*3/mm3 4.6-10.2 erythrocyte (RBC) count 4.79 10^6/MM^3 10*6/mm3 4.69-6.13 hemoglobin, blood 14.1 g/dL 13.5-17.5 hematocrit, blood 43.0 % 41.0-53.0 mean corpuscular volume, RBC 90 fL 80-97 mean corpuscular hemoglobin, RBC 29.5 pg 27.0-31.2 mean corpuscular hemoglobin concentration, RBC 32.8 G/DL % 31.8- 35.4 red blood cell distribution width 15.1 % 11.6-14.8 platelet count 241 10^3/MM^3 10*3/mm3 608-340 9060/10/14 mean corpuscular hemoglobin, RBC 29.7 pg 27.0-31.2 mean corpuscular hemoglobin concentration, RBC 32.8 G/DL % 31.8- 35.4 red blood cell distribution width 14.7 % 11.6-14.8 platelet count 214 10^3/MM^3 10*3/mm3 142-424 Lab Report: Comp. Metabolic Panel, HGBA1C - Chemistry sodium, serum 139 mmol/L 556-253 9764/07/09 potassium, serum 5.4 mmol/L 3.5-5.2 chloride, serum [...] total hemoglobin 6.8 % 4.3-6.0 Lab Report: Prostatic Specific Ag - Chemistry prostate specific antigen 1.52 ng/mL 0.00-4.00 Lab Report: Renal Panel - Chemistry sodium, serum 140 mmol/L 983-556 7397/11/17 potassium, serum 5.0 mmol/L 3.5-5.2 chloride, serum 104 mmol/L 98-107 carbon dioxide, venous blood 24.8 mmol/L 21.0-32.0 blood glucose 146 mg/dL 65-110 urea nitrogen, blood 46 mg/dL 7-18 creatinine, serum 2.60 mg/dL 0.60-1.30 calcium, serum 9.2 mg/dL 8.5-10.1 sodium, serum 139 mmol/L 564-915 9194/10/21 potassium, serum 4.7 mmol/L 3.5-5.2 chloride, serum 104 mmol/L 98-107 carbon dioxide, venous blood 26.1 mmol/L 21.0-32.0 blood glucose 148 mg/dL 65-110 urea nitrogen, blood 38 mg/dL 7-18 creatinine, serum 2.60 mg/dL 0.60-1.30 calcium, serum 8.6 mg/dL 8.5-10.1 Encounters Code Encounter Date Provider Facility CPT-65147 Level 4 Est. Patient 08:47:25 CDT Simon Castillo MD [facility] CPT-18724 Level 4 Est. Patient 10:17:25 CDT Simon Castillo MD [facility] CPT-22742 Level 4 Est. Patient 10:10:09 TOPOGRAPHICAL ENGINEER Simon Castillo MD [facility] CPT-55660 Level 4 Est. Patient 11:48:19 CDT Simon Castillo MD [facility] CPT-04345 Level 4 Est. Patient 08:59:29 CDT Simon Castillo MD [facility] CPT-02621 Level 4 Est. Patient 10:52:51 TOPOGRAPHICAL ENGINEER Simon Castillo MD [facility] CPT-88708 Level 4 Est. Patient 11:50:30 CDT Simon Castillo MD [facility] CPT-37406 Level 4 Est. Patient 09:54:46 CDT Simon Castillo MD [facility] CPT-60926 Level 3 Est. Patient 11:10:14 CDT Simon Castillo MD [facility] CPT-83883 Level 4 Est. Patient 09:44:02 CDT Simon Castillo MD [facility] CPT-76367 Level 3 Est. Patient 09:27:48 CDT Simon Castillo MD [facility] CPT-87395 Level 3 Est. Patient 09:58:06 TOPOGRAPHICAL ENGINEER Simon Castillo MD [facility] CPT-86535 Level 3 Est. Patient 09:51:35 CDT Simon Castillo MD [facility] Procedures Code Procedure Name Date Entry Date Standard Description CPT-51615 Venipuncture Draw Fee 08:07:29 TOPOGRAPHICAL ENGINEER CPT-84710 Venipuncture Draw Fee 09:02:51 TOPOGRAPHICAL ENGINEER CPT-16993 Venipuncture Draw Fee 12:45:08 TOPOGRAPHICAL ENGINEER CPT-53656 Venipuncture Draw Fee 09:25:31 CDT CPT-G0008 Administration of Influenza Virus Vaccine 14:41:29 CDT CPT-47695 Fluzone High-Dose Intramuscular Suspension 14:41:29 CDT CPT-Cryo Cryotherapy 11:48:20 CDT CPT-82527 EKG Trac and Interp 09:21:58 CDT CPT-89167 Chest 2V Frontal and Lat 09:21:58 CDT CPT-Cryo Cryotherapy 10:54:51 TOPOGRAPHICAL ENGINEER CPT-85533 Administration 2+ single or combination vaccines inc oral 10:42:19 CDT CPT-94070 Administration single or combination vaccine inc oral 10 :42:19 CDT CPT-21644 Pneumovax 10:42:19 CDT CPT-17153 Influenza High Dose age 65+ 10:42:19 CDT CPT-59876 Administration single or combination vaccine inc oral 13 :18:54 CDT CPT-89960 Influenza High Dose age 65+ 13:18:54 CDT CPT-61126 Venipuncture Draw Fee 11:53:16 CDT CPT-26710 LS spine comp w obliq 11:03:13 CDT CPT-Cryo Cryotherapy 08:27:16 TOPOGRAPHICAL ENGINEER CPT-49328 Administration single or combination vaccine inc oral 10 :56:34 CDT CPT-31171 Influenza High Dose age 65+ 10:56:34 CDT
--- OUTSIDE RECORDS SUMMARY | 2018-03-31 16:39 | XMS REPORT | Clinical Summary ---
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 V58.65 Resolved Simon Castillo MD Long-term [...] Rheumatoid arthritis Pharyngitis 462 Active 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 COMIC WRITER Acute pharyngitis Dyspnea 786.09 Active 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 COMIC WRITER Other dyspnea and respiratory abnormality Peripheral edema 782.3 Active 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 COMIC WRITER Edema FH DIABETES ICD-V18.0 Inactive Simon Castillo [...] ICD-729.5 Inactive Simon Castillo MD Steroid use, jail ICD-V58.65 Inactive Simon Castillo MD Hand pain, bilateral ICD-729.5 Kerry Castillo MD Medication List Medication Instructions Start Date Stop Date Generic Name NDC Status Provider Patient Instruction PREDNISONE 20 MG TAB 2 tabs daily for 3 days, 1 tab daily for 3 days, 1/2 tab daily for 2 days PREDNISONE 68622537880 Active Jillina Fraamayal COMIC WRITER Active PREDNISONE 20 MG TAB 1 tablet daily for airway inflammation 02/25 PREDNISONE 56460344097 No Longer Active Jillina Fratico LOYAN Active SULFASALAZINE 500 MG ORAL TBEC 2 tabs BID SULFASALAZINE 72657689590 Active Jillina Fraamayal COMIC WRITER Active CLARITIN 10 MG TAB 1 tablet by mouth daily as needed for allergies LORATADINE 70877833405 Active Jillina Fraamayal COMIC WRITER Active AZITHROMYCIN 250 MG TABS 2 po qd x 1 day, then 1 po qd x 4 days AZITHROMYCIN 45388260807 No Longer Active Jillina Fratico LOYAN Active GLIMEPIRIDE 2 MG ORAL TABS 1 po q a.m. GLIMEPIRIDE 09763323513 Active Simon Castillo MD Active HYDROCODONE-ACETAMINOPHEN 5-325 MG TABS 1 tab by mouth 8 hours as needed for pain HYDROCODONE-ACETAMINOPHEN 54907239017 Active Simon Castillo MD Active TRAMADOL HCL 50 MG TABS 1 po q6hr PRN Pain TRAMADOL HCL 81792391725 No Longer Active Simon Castillo MD Active PREDNISONE 5 MG TAB 1-2 tabs daily for rheumatoid arthritis PREDNISONE 56271227859 Active Simon Castillo MD Active PREDNISONE 5 MG TABS 1 po qod PREDNISONE 40153071112 No Longer Active Simon Castillo MD Active SYMBICORT 160-4.5 MCG/ACT AERO 2 puff BID BUDESONIDE- FORMOTEROL FUMARATE 44975500290 No Longer Active Simon Castillo MD Active FLONASE 50 MCG/ACT SUSP 2 puffs in each nostril daily FLUTICASONE PROPIONATE 96957171717 No Longer Active Simon Castillo MD Active PREDNISONE 20 MG TAB 2 tabs daily for 5 days, then 1 daily for 5 days PREDNISONE 13053607591 No Longer Active Simon Castillo MD Active PREDNISONE 20 MG TAB 2 tabs daily for 5 days, then 1 daily for 5 days, then 0.5 for 4 days PREDNISONE 45399852767 No Longer Active Simon Castillo MD Active CLOTRIMAZOLE 1 % EXT CREA Apply to affected area of feet twice daily PRN Rash CLOTRIMAZOLE 51178230932 Active Simon Castillo MD Active PREDNISONE 20 MG TAB 2 tabs daily for 3 days, 1 tab daily for 3 days, 1/2 tab daily for 2 days PREDNISONE 18255383918 No Longer Active Simon Castillo MD Active AZITHROMYCIN 250 MG TABS 2 po qd x 1 day, then 1 po qd x 4 days AZITHROMYCIN 69614195053 No Longer Active Simon Castillo MD Active LISINOPRIL 10 MG TABS 1 tablet by mouth daily LISINOPRIL 13285933086 Active Simon Castillo MD Active CARVEDILOL 6.25 MG TABS 1 po BID CARVEDILOL 29960923824 Active Simon Castillo MD Active LISINOPRIL-HYDROCHLOROTHIAZIDE 20-12.5 MG TABS 1/2 tab by mouth daily LISINOPRIL-HYDROCHLOROTHIAZIDE 07038107123 No Longer Active Simon Castillo MD Active TRAMADOL HCL 50 MG TABS 1-2 tablets every 6 hours as needed for pain TRAMADOL HCL 60684810808 Active Giles Tatum APRN Active PREDNISONE 5 MG TAB Take one po qod PREDNISONE 46559934000 No Longer Active Simon Castillo MD Active GLYBURIDE 5 MG TAB Take one by mouth daily GLYBURIDE 01300329026 No Longer Active Simon Castillo MD Active LEVAQUIN 750 MG TABS 1 po qod x 5 doses LEVOFLOXACIN 48560093875 No Longer Active Simon Castillo MD Active CETIRIZINE HCL 10 MG TABS 1 po qd as needed for allergies CETIRIZINE HCL 08915269208 No Longer Active Simon Castillo MD Active FISH OIL 1000 MG CPDR 1 pill by mouth twice daily for cholesterol OMEGA -3 FATTY ACIDS 95019502221 Active Simon Castillo MD Active BILBERRY CAPS 1 tab daily BILBERRY (VACCINIUM MYRTILLUS) CAPS 49571150809 Active Simon Castillo MD Active ATENOLOL 50 MG TABS Take one by mouth daily ATENOLOL 32433700461 No Longer Active Simon Castillo MD Active FLONASE 50 MCG/ACT SUSP 2 puffs in each nostril daily FLUTICASONE PROPIONATE 06634493707 No Longer Active Simon Castillo MD Active GLYBURIDE 5 MG TAB Take one by mouth daily GLYBURIDE 72694619526 No Longer Active Simon Castillo MD Active SYMBICORT 80-4.5 MCG/ACT AERO 2 puffs twice a day BUDESONIDE-FORMOTEROL FUMARATE 73116219991 No Longer Active Simon Castillo MD Active PREDNISONE 20 MG TAB 2 tabs daily for 4 days, 1 tab daily for 4 days, 1/2 tab daily for 4 days PREDNISONE 41199176134 No Longer Active Simon Castillo MD Active AMOXICILLIN 500 MG CAPS 2 po BID x 10 days AMOXICILLIN 39106197162 No Longer Active Simon Castillo MD Active METFORMIN HCL 1000 MG TABS 1 by mounth twice a day METFORMIN HCL 07748332733 No Longer Active Simon Castillo MD Active LUTEIN-ZEAXANTHIN 6-1 MG TABS Take 2 by mouth daily LUTEIN-ZEAXANTHIN 55678665262 Active Simon Castillo MD Active IBUPROFEN 800 MG TABS Take 1 tab every 6 hrs prn IBUPROFEN 94729217366 No Longer Active Simon Castillo MD Active GLYBURIDE 2.5 MG TABS Take one by mouth daily GLYBURIDE 47326561445 No Longer Active Simon Castillo MD Active LANCETS MISC 2 qd LANCETS 50237933235 Active Pamela Conde Active ACACIA CONTOUR TEST STRP Use with testing twice daily GLUCOSE BLOOD 41937885684 Active Simon Castillo MD Active ACACIA ASPIRIN 325 MG TABS Take one by mouth daily ASPIRIN 19943433658 Active Pamela Conde Active GLYBURIDE 2.5 MG TABS Take one by mouth daily GLYBURIDE 2.5 MG TABS 266043 GLYBURIDE Inactive PREDNISONE 20 MG TAB 2 tabs daily for 4 days, 1 tab daily for 4 days, 1/2 tab daily for 4 days PREDNISONE 20 MG TAB 464842 PREDNISONE Inactive SYMBICORT 80-4.5 MCG/ACT AERO 2 puffs twice a day SYMBICORT 80-4.5 MCG/ACT AERO BUDESONIDE-FORMOTEROL FUMARATE Inactive FLONASE 50 MCG/ACT SUSP 2 puffs in each nostril daily FLONASE 50 MCG/ACT SUSP 428111 FLUTICASONE PROPIONATE Inactive ATENOLOL 50 MG TABS Take one by mouth daily ATENOLOL 50 MG TABS 227586 ATENOLOL Inactive CETIRIZINE HCL 10 MG TABS 1 po qd as needed for allergies CETIRIZINE HCL 10 MG TABS 5020385 CETIRIZINE HCL Inactive LEVAQUIN 750 MG TABS 1 po qod x 5 doses LEVAQUIN 750 MG TABS 350632 LEVOFLOXACIN Inactive GLYBURIDE 5 MG TAB Take one by mouth daily GLYBURIDE 5 MG TAB 836074 GLYBURIDE Inactive PREDNISONE 5 MG TAB Take one po qod PREDNISONE 5 MG TAB 598337 PREDNISONE Inactive PREDNISONE 20 MG TAB 2 tabs daily for 5 days, then 1 daily for 5 days PREDNISONE 20 MG TAB 282288 PREDNISONE Inactive FLONASE 50 MCG/ACT SUSP 2 puffs in each nostril daily FLONASE 50 MCG/ACT SUSP 123023 FLUTICASONE PROPIONATE Inactive SYMBICORT 160-4.5 MCG/ACT AERO 2 puff BID SYMBICORT 160-4.5 MCG/ACT AERO BUDESONIDE-FORMOTEROL FUMARATE Inactive PREDNISONE 5 MG TABS 1 po qod PREDNISONE 5 MG TABS 506085 PREDNISONE Inactive PREDNISONE 20 MG TAB 1 tablet daily for airway inflammation 02/25 PREDNISONE 20 MG TAB 305825 PREDNISONE Inactive AMOXICILLIN 500 MG CAPS 2 po BID x 10 days AMOXICILLIN 500 MG CAPS 150339 AMOXICILLIN Inactive GLYBURIDE 5 MG TAB Take one by mouth daily GLYBURIDE 5 MG TAB 055362 GLYBURIDE Inactive AZITHROMYCIN 250 MG TABS 2 po qd x 1 day, then 1 po qd x 4 days AZITHROMYCIN 250 MG TABS 2460384 AZITHROMYCIN Inactive PREDNISONE 20 MG TAB 2 tabs daily for 3 days, 1 tab daily for 3 days, 1/2 tab daily for 2 days PREDNISONE 20 MG TAB 210752 PREDNISONE Inactive PREDNISONE 20 MG TAB 2 tabs daily for 5 days, then 1 daily for 5 days, then 0.5 for 4 days PREDNISONE 20 MG TAB 225595 PREDNISONE Inactive AZITHROMYCIN 250 MG TABS 2 po qd x 1 day, then 1 po qd x 4 days AZITHROMYCIN 250 MG TABS 5770509 AZITHROMYCIN Inactive Immunizations Vaccine Administration Date Value [...] Panel - Chemistry sodium, serum 132 mmol/L 979-109 2402/10/26 carbon dioxide, venous blood 22.8 mmol/L 21.0-32.0 potassium, serum 5.4 mmol/L 3.5-5.2 chloride, serum 98 mmol/L 98-107 blood glucose 424 mg/dL 65-110 urea nitrogen, blood 40 mg/dL 7-18 creatinine, serum 2.26 mg/dL 0.55-1.30 alanine aminotransferase (SGPT), serum 29 U/L 12-78 aspartate aminotransferase (SGOT), serum 24 U/L 15-37 calcium, serum 8.6 mg/dL 8.5-10.1 bilirubin, serum, total 0.60 mg/dL 0.00-1.00 sodium, serum 137 mmol/L 281-005 4658/06/06 carbon dioxide, venous blood 24.9 mmol/L 21.0-32.0 [...] % 11.6-14.8 platelet count 210 10^3/MM^3 10*3/mm3 624-271 6528/10/26 leukocyte count, blood 10.3 10^3/MM^3 10*3/mm3 4.6-10.2 [...] Panel - Chemistry sodium, serum 139 mmol/L 206-752 6064/03/17 carbon dioxide, venous blood 29.0 mmol/L 21.0-32.0 [...] Rate - Chemistry sodium, serum 136 mmol/L 564-017 0527/09/18 carbon dioxide, venous blood 24.3 mmol/L 21.0-32.0 [...] HGBA1C - Chemistry sodium, serum 139 mmol/L 748-548 2612/07/09 potassium, serum 5.4 mmol/L 3.5-5.2 chloride, serum [...] 8.5 % 4.3-6.0 sodium, serum 137 mmol/L 547-969 8931/02/12 potassium, serum 5.1 mmol/L 3.5-5.2 chloride, serum 103 mmol/L 98-107 carbon dioxide, venous blood 24.4 mmol/L 21.0-32.0 blood glucose 261 mg/dL 65-110 calcium, serum 9.0 mg/dL 8.5-10.1 urea nitrogen, blood 44 mg/dL 7-18 creatinine, serum 2.37 mg/dL 0.55-1.30 Lab Report: Lipid Panel - Chemistry cholesterol, serum 139 mg/dL 569-905 3212/09/10 triglyceride, serum, fasting 176 mg/dL 30-200 HDL cholesterol, serum 45 mg/dL 32-96 LDL cholesterol, serum 59 mg/dL 0-130 Lab Report: MICROALBUMIN - Chemistry albumin/creatinine ratio, urine 30 - 300 mg/g mg/g{creat} 0-29 Lab Report: MICROALBUMIN - Lab microalbumin, urine 30 0-19 Lab Report: Uric Acid - Chemistry uric acid, serum 6.3 mg/dL 2.6-7.2 Encounters Code Encounter Date Provider Facility CPT-87608 Level 3 Est. Patient 08:41:43 CDT Giles Tatum [facility] CPT-44655 Level 3 Est. Patient 08:40:53 CDT Giles Tatum [facility] CPT-31160 Level 3 Est. Patient 08:36:52 CDT Giles Tatum [facility] CPT-57388 Level 3 Est. Patient 09:08:44 CDT Giles Tatum [facility] CPT-45276 Level 4 Est. Patient 09:17:32 MANAGER DELI Simon Castillo MD [facility] CPT-71936 Level 3 Est. Patient 11:22:22 MANAGER DELI Simon Castillo MD [facility] CPT-27344 Level 3 Est. Patient 09:02:14 CDT Simon Castillo MD [facility] CPT-12028 Level 4 Est. Patient 08:47:25 CDT Simon Castillo MD [facility] CPT-27176 Level 4 Est. Patient 10:17:25 CDT Simon Castillo MD [facility] CPT-64177 Level 4 Est. Patient 10:10:09 MANAGER DELI Simon Castillo MD [facility] CPT-25543 Level 4 Est. Patient 11:48:19 CDT Simon Castillo MD [facility] CPT-40488 Level 4 Est. Patient 08:59:29 CDT Simon Castillo MD [facility] CPT-32923 Level 4 Est. Patient 10:52:51 MANAGER DELI Simon Castillo MD [facility] CPT-45929 Level 4 Est. Patient 11:50:30 CDT Simon Castillo MD [facility] CPT-45399 Level 4 Est. Patient 09:54:46 CDT Simon Castillo MD [facility] CPT-39960 Level 3 Est. Patient 11:10:14 CDT Simon Castillo MD [facility] CPT-60711 Level 4 Est. Patient 09:44:02 CDT Simon Castillo MD [facility] CPT-28976 Level 3 Est. Patient 09:27:48 CDT Simon Castillo MD [facility] CPT-80949 Level 3 Est. Patient 09:58:06 MANAGER DELI Simon Castillo MD [facility] CPT-13751 Level 3 Est. Patient 09:51:35 CDT Simon Castillo MD [facility] Procedures Code Procedure Name Date Entry Date Standard Description CPT-22227 Chest 2V Frontal and Lat - XRAY USE ONLY 09:00:14 CDT CPT-25586 Venipuncture Draw Fee 13:33:02 CDT CPT-26300 Bone Density 09:37:49 MANAGER DELI CPT-39221 Fluzone High Dose 17:20:42 CDT CPT-12635 Prevnar 13 17:20:42 CDT CPT-21633 Administration 2+ single or combination vaccines inc oral 17:20:42 CDT CPT-44507 Administration single or combination vaccine inc oral 17 :20:42 CDT CPT-37571 Hand comp min 3V 09:24:38 CDT CPT-23601 Venipuncture Draw Fee 08:07:29 MANAGER DELI CPT-87539 Venipuncture Draw Fee 09:02:51 MANAGER DELI CPT-37571 Venipuncture Draw Fee 12:45:08 MANAGER DELI CPT-34150 Venipuncture Draw Fee 09:25:31 CDT CPT-G0008 Administration of Influenza Virus Vaccine 14:41:29 CDT CPT-52715 Fluzone High-Dose Intramuscular Suspension 14:41:29 CDT CPT-Cryo Cryotherapy 11:48:20 CDT CPT-49256 EKG Trac and Interp 09:21:58 CDT CPT-02886 Chest 2V Frontal and Lat 09:21:58 CDT CPT-Cryo Cryotherapy 10:54:51 MANAGER DELI CPT-80205 Administration 2+ single or combination vaccines inc oral 10:42:19 CDT CPT-48714 Administration single or combination vaccine inc oral 10 :42:19 CDT CPT-40313 Pneumovax 10:42:19 CDT CPT-94079 Influenza High Dose age 65+ 10:42:19 CDT CPT-71466 Administration single or combination vaccine inc oral 13 :18:54 CDT CPT-47977 Influenza High Dose age 65+ 13:18:54 CDT CPT-41336 Venipuncture Draw Fee 11:53:16 CDT CPT-70678 LS spine comp w obliq 11:03:13 CDT CPT-Cryo Cryotherapy 08:27:16 MANAGER DELI CPT-11104 Administration single or combination vaccine inc oral 10 :56:34 CDT CPT-84764 Influenza High Dose age 65+ 10:56:34 CDT
--- OUTSIDE RECORDS SUMMARY | 2018-03-31 16:40 | XMS REPORT | Clinical Summary ---
Author Author Admin, E Organization [employer] Address Unknown Phone Unavailable Allergies, Adverse Reactions, [...] Inactive Simon Castillo MD Steroid use, terminal carman ICD-V58.65 Inactive Simon Castillo MD Hand pain, [...] MG ORAL TBEC 1 po qd ASPIRIN 93851337440 Active Simon Castillo MD Active CLOTRIMAZOLE 1 % EXT CREA Apply to affected area of feet twice daily PRN Rash CLOTRIMAZOLE 27344493346 No Longer Active Simon Castillo MD Active PREDNISONE 5 MG TAB 1 po BID PREDNISONE 98717873407 Active Simon Castillo MD Active GLIMEPIRIDE 2 MG ORAL TABS 1 po BID GLIMEPIRIDE 94278640719 Active Simon Castillo MD Active FISH OIL 1000 MG CPDR 1 po BID OMEGA-3 FATTY ACIDS 43543937170 Active Simon Castillo MD Active LISINOPRIL 10 MG TABS 1 p qd LISINOPRIL 10972646661 Active Simon Castillo MD Active CLARITIN 10 MG TAB 1 tablet by mouth daily as needed for allergies LORATADINE 35989770622 No Longer Active Simon Castillo MD Active TRIAMCINOLONE ACETONIDE 0.1 % OINT Apply to affected areas TID for up to 2 weeks TRIAMCINOLONE ACETONIDE 54530133613 No Longer Active Simon Castillo MD Active LASIX 20 MG TAB 1 tablet by mouth daily x 2 days FUROSEMIDE 74108809755 No Longer Active Simon Castillo MD Active SULFASALAZINE 500 MG ORAL TBEC 2 tabs BID SULFASALAZINE 94873363264 No Longer Active Neto Oshea DO Active PREDNISONE 20 MG TAB 2 tabs daily for 3 days, 1 tab daily for 3 days, 1/2 tab daily for 2 days PREDNISONE 25837247379 No Longer Active 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 [employer] Active PREDNISONE 20 MG TAB 1 tablet daily for airway inflammation 02/25 PREDNISONE 90689755239 No Longer Active 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 [employer] Active AZITHROMYCIN 250 MG TABS 2 po qd x 1 day, then 1 po qd x 4 days AZITHROMYCIN 15663804051 No Longer Active 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 [employer] Active HYDROCODONE-ACETAMINOPHEN 5-325 MG TABS 1 tab by mouth 8 hours as needed for pain HYDROCODONE-ACETAMINOPHEN 21080082333 Active Simon Castillo MD Active TRAMADOL HCL 50 MG TABS 1 po q6hr PRN Pain TRAMADOL HCL 01239039509 No Longer Active Simon Castillo MD Active PREDNISONE 5 MG TABS 1 po qod PREDNISONE 31151591612 No Longer Active Simon Castillo MD Active SYMBICORT 160-4.5 MCG/ACT AERO 2 puff BID BUDESONIDE- FORMOTEROL FUMARATE 72207661464 No Longer Active Simon Castillo MD Active FLONASE 50 MCG/ACT SUSP 2 puffs in each nostril daily FLUTICASONE PROPIONATE 68703327165 No Longer Active Simon Castillo MD Active PREDNISONE 20 MG TAB 2 tabs daily for 5 days, then 1 daily for 5 days PREDNISONE 00790011643 No Longer Active Simon Castillo MD Active PREDNISONE 20 MG TAB 2 tabs daily for 5 days, then 1 daily for 5 days, then 0.5 for 4 days PREDNISONE 80995407080 No Longer Active Simon Castillo MD Active PREDNISONE 20 MG TAB 2 tabs daily for 3 days, 1 tab daily for 3 days, 1/2 tab daily for 2 days PREDNISONE 08372656036 No Longer Active Simon Castillo MD Active AZITHROMYCIN 250 MG TABS 2 po qd x 1 day, then 1 po qd x 4 days AZITHROMYCIN 05658558593 No Longer Active Simon Castillo MD Active CARVEDILOL 6.25 MG TABS 1 po BID CARVEDILOL 57929158518 Active Simon Castillo MD Active LISINOPRIL-HYDROCHLOROTHIAZIDE 20-12.5 MG TABS 1/2 tab by mouth daily LISINOPRIL-HYDROCHLOROTHIAZIDE 56406208007 No Longer Active Simon Castillo MD Active TRAMADOL HCL 50 MG TABS 1-2 tablets every 6 hours as needed for pain TRAMADOL HCL 88813721897 Active Giles Tatum APRN Active PREDNISONE 5 MG TAB Take one po qod PREDNISONE 97827097572 No Longer Active Simon Castillo MD Active GLYBURIDE 5 MG TAB Take one by mouth daily GLYBURIDE 73529815770 No Longer Active Simon Castillo MD Active LEVAQUIN 750 MG TABS 1 po qod x 5 doses LEVOFLOXACIN 83798956481 No Longer Active Simon Castillo MD Active CETIRIZINE HCL 10 MG TABS 1 po qd as needed for allergies CETIRIZINE HCL 04657329830 No Longer Active Simon Castillo MD Active BILBERRY CAPS 1 tab daily BILBERRY (VACCINIUM MYRTILLUS) CAPS 84400972402 Active Simon Castillo MD Active ATENOLOL 50 MG TABS Take one by mouth daily ATENOLOL 67824864709 No Longer Active Simon Castillo MD Active FLONASE 50 MCG/ACT SUSP 2 puffs in each nostril daily FLUTICASONE PROPIONATE 66760142691 No Longer Active Simon Castillo MD Active GLYBURIDE 5 MG TAB Take one by mouth daily GLYBURIDE 52110389359 No Longer Active Simon Castillo MD Active SYMBICORT 80-4.5 MCG/ACT AERO 2 puffs twice a day BUDESONIDE-FORMOTEROL FUMARATE 01488200432 No Longer Active Simon Castillo MD Active PREDNISONE 20 MG TAB 2 tabs daily for 4 days, 1 tab daily for 4 days, 1/2 tab daily for 4 days PREDNISONE 06647524376 No Longer Active Simon Castillo MD Active AMOXICILLIN 500 MG CAPS 2 po BID x 10 days AMOXICILLIN 21315184292 No Longer Active Simon Castillo MD Active METFORMIN HCL 1000 MG TABS 1 by mounth twice a day METFORMIN HCL 41341598320 No Longer Active Simon Castillo MD Active LUTEIN-ZEAXANTHIN 6-1 MG TABS Take 2 by mouth daily LUTEIN-ZEAXANTHIN 03953695461 Active Simon Castillo MD Active IBUPROFEN 800 MG TABS Take 1 tab every 6 hrs prn IBUPROFEN 84656293884 No Longer Active Simon Castillo MD Active GLYBURIDE 2.5 MG TABS Take one by mouth daily GLYBURIDE 00241342772 No Longer Active Simon Castillo MD Active LANCETS MISC 2 qd LANCETS 82222615320 Active Pamela Conde Active ACACIA CONTOUR TEST STRP Use with testing twice daily GLUCOSE BLOOD 83453091569 Active Simon Castillo MD Active GLYBURIDE 2.5 MG TABS Take one by mouth daily GLYBURIDE 2.5 MG TABS 624028 GLYBURIDE Inactive PREDNISONE 20 MG TAB 2 tabs daily for 4 days, 1 tab daily for 4 days, 1/2 tab daily for 4 days PREDNISONE 20 MG TAB 392299 PREDNISONE Inactive SYMBICORT 80-4.5 MCG/ACT AERO 2 puffs twice a day SYMBICORT 80-4.5 MCG/ACT AERO BUDESONIDE-FORMOTEROL FUMARATE Inactive FLONASE 50 MCG/ACT SUSP 2 puffs in each nostril daily FLONASE 50 MCG/ACT SUSP FLUTICASONE PROPIONATE Inactive ATENOLOL 50 MG TABS Take one by mouth daily ATENOLOL 50 MG TABS 206717 ATENOLOL Inactive CETIRIZINE HCL 10 MG TABS 1 po qd as needed for allergies CETIRIZINE HCL 10 MG TABS 0030575 CETIRIZINE HCL Inactive LEVAQUIN 750 MG TABS 1 po qod x 5 doses LEVAQUIN 750 MG TABS 706441 LEVOFLOXACIN Inactive GLYBURIDE 5 MG TAB Take one by mouth daily GLYBURIDE 5 MG TAB 575364 GLYBURIDE Inactive PREDNISONE 5 MG TAB Take one po qod PREDNISONE 5 MG TAB 934684 PREDNISONE Inactive PREDNISONE 20 MG TAB 2 tabs daily for 5 days, then 1 daily for 5 days PREDNISONE 20 MG TAB 822973 PREDNISONE Inactive FLONASE 50 MCG/ACT SUSP 2 puffs in each nostril daily FLONASE 50 MCG/ACT SUSP FLUTICASONE PROPIONATE Inactive SYMBICORT 160-4.5 MCG/ACT AERO 2 puff BID SYMBICORT 160-4.5 MCG/ACT AERO BUDESONIDE-FORMOTEROL FUMARATE Inactive PREDNISONE 5 MG TABS 1 po qod PREDNISONE 5 MG TABS 060455 PREDNISONE Inactive PREDNISONE 20 MG TAB 1 tablet daily for airway inflammation 02/25 PREDNISONE 20 MG TAB 178606 PREDNISONE Inactive SULFASALAZINE 500 MG ORAL TBEC 2 tabs BID SULFASALAZINE 500 MG ORAL TBEC 368078 SULFASALAZINE Inactive LASIX 20 MG TAB 1 tablet by mouth daily x 2 days LASIX 20 MG TAB 889837 FUROSEMIDE Inactive CLARITIN 10 MG TAB 1 tablet by mouth daily as needed for allergies CLARITIN 10 MG TAB 655313 LORATADINE Inactive CLOTRIMAZOLE 1 % EXT CREA Apply to affected area of feet twice daily PRN Rash CLOTRIMAZOLE 1 % EXT CREA 368020 CLOTRIMAZOLE Inactive AMOXICILLIN 500 MG CAPS 2 po BID x 10 days AMOXICILLIN 500 MG CAPS 349151 AMOXICILLIN Inactive GLYBURIDE 5 MG TAB Take one by mouth daily GLYBURIDE 5 MG TAB 868677 GLYBURIDE Inactive AZITHROMYCIN 250 MG TABS 2 po qd x 1 day, then 1 po qd x 4 days AZITHROMYCIN 250 MG TABS 7049155 AZITHROMYCIN Inactive PREDNISONE 20 MG TAB 2 tabs daily for 3 days, 1 tab daily for 3 days, 1/2 tab daily for 2 days PREDNISONE 20 MG TAB 892874 PREDNISONE Inactive PREDNISONE 20 MG TAB 2 tabs daily for 5 days, then 1 daily for 5 days, then 0.5 for 4 days PREDNISONE 20 MG TAB 786813 PREDNISONE Inactive AZITHROMYCIN 250 MG TABS 2 po qd x 1 day, then 1 po qd x 4 days AZITHROMYCIN 250 MG TABS 6330019 AZITHROMYCIN Inactive PREDNISONE 20 MG TAB 2 tabs daily for 3 days, 1 tab daily for 3 days, 1/2 tab daily for 2 days PREDNISONE 20 MG TAB 359728 PREDNISONE Inactive TRIAMCINOLONE ACETONIDE 0.1 % OINT Apply to affected areas TID for up to 2 weeks TRIAMCINOLONE ACETONIDE 0.1 % OINT 5959189 TRIAMCINOLONE ACETONIDE Inactive Immunizations Vaccine Administration Date [...] Panel - Chemistry sodium, serum 137 mmol/L 213-349 5941/06/06 carbon dioxide, venous blood 24.9 mmol/L 21.0-32.0 [...] Panel - Chemistry sodium, serum 139 mmol/L 294-796 9030/03/17 carbon dioxide, venous blood 29.0 mmol/L 21.0-32.0 [...] % 11.6-14.8 platelet count 283 10^3/MM^3 10*3/mm3 051-489 9534/03/17 mean corpuscular volume, RBC 92 fL 80-97 hematocrit, blood 42.0 % 41.0-53.0 hemoglobin, blood 13.6 g/dL 13.5-17.5 erythrocyte (RBC) count 4.56 10^6/MM^3 10*6/mm3 4.69-6.13 leukocyte count, blood 10.9 10^3/MM^3 10*3/mm3 4.6-10.2 Lab Report: Lipid Panel, HGBA1C, Comp. Metabolic Panel - Chemistry cholesterol, serum 126 mg/dL 645-922 6483/02/07 triglyceride, serum, fasting 83 mg/dL 30-200 HDL cholesterol, serum 70 mg/dL 32-96 LDL cholesterol, serum 39 mg/dL 0-130 hemoglobin A1C, blood, as % of total hemoglobin 8.3 % 4.3-6.0 sodium, serum 141 mmol/L 955-915 3517/02/07 carbon dioxide, venous blood 26.0 mmol/L 21.0-32.0 [...] 2.6-7.2 Encounters Code Encounter Date Provider Facility CPT-47356 Level 4 Est. Patient 09:29:28 [employer] Simon Castillo MD [facility] CPT-14489 Level 3 Est. Patient 09:18:25 CDT Simon Castillo MD [facility] CPT-96891 Level 4 Est. Patient 11:51:23 CDT Simon Castillo MD [facility] CPT-18223 Level 4 Est. Patient 14:32:04 CDT Neto Oshea DO [facility] CPT-59473 Level 3 Est. Patient 08:41:43 CDT Giles Tatum [facility] CPT-54577 Level 3 Est. Patient 08:40:53 CDT Giles Tatum [facility] CPT-60133 Level 3 Est. Patient 08:36:52 CDT Giles Tatum [facility] CPT-98083 Level 3 Est. Patient 09:08:44 CDT Giles Tatum [facility] CPT-81672 Level 4 Est. Patient 09:17:32 [employer] Simon Castillo MD [facility] CPT-79408 Level 3 Est. Patient 11:22:22 [employer] Simon Castillo MD [facility] CPT-39837 Level 3 Est. Patient 09:02:14 CDT Simon Castillo MD [facility] CPT-32907 Level 4 Est. Patient 08:47:25 CDT Simon Castillo MD [facility] CPT-50449 Level 4 Est. Patient 10:17:25 CDT Simon Castillo MD [facility] CPT-51367 Level 4 Est. Patient 10:10:09 [employer] Simon Castillo MD [facility] CPT-74041 Level 4 Est. Patient 11:48:19 CDT Simon Castillo MD [facility] CPT-72954 Level 4 Est. Patient 08:59:29 CDT Simon Castillo MD [facility] CPT-22646 Level 4 Est. Patient 10:52:51 [employer] Simon Castillo MD [facility] CPT-60962 Level 4 Est. Patient 11:50:30 CDT Simon Castillo MD [facility] CPT-10405 Level 4 Est. Patient 09:54:46 CDT Simon Castillo MD [facility] CPT-70729 Level 3 Est. Patient 11:10:14 CDT Simon Castillo MD [facility] CPT-51367 Level 4 Est. Patient 09:44:02 CDT Simon Castillo MD [facility] CPT-46373 Level 3 Est. Patient 09:27:48 CDT Simon Castillo MD [facility] CPT-00484 Level 3 Est. Patient 09:58:06 [employer] Simon Castillo MD [facility] CPT-45351 Level 3 Est. Patient 09:51:35 CDT Simon Castillo MD [facility] Procedures Code Procedure Name Date Entry Date Standard Description CPT-37476 First Vx - Ix admin for Medicare patients 17:33:39 CDT CPT-66985 Fluzone High-Dose Intramuscular Suspension 17:33:39 CDT CPT-G0438 Initial Annual Wellness Exam 08:57:30 CDT CPT-46467 Chest 2V Frontal and Lat - XRAY USE ONLY 09:00:14 CDT CPT-28627 Venipuncture Draw Fee 13:33:02 CDT CPT-04546 Bone Density 09:37:49 [employer] CPT-07231 Fluzone High Dose 17:20:42 CDT CPT-45061 Prevnar 13 17:20:42 CDT CPT-22560 Administration 2+ single or combination vaccines inc oral 17:20:42 CDT CPT-14863 Administration single or combination vaccine inc oral 17 :20:42 CDT CPT-08046 Hand comp min 3V 09:24:38 CDT CPT-80367 Venipuncture Draw Fee 08:07:29 [employer] CPT-78152 Venipuncture Draw Fee 09:02:51 [employer] CPT-87249 Venipuncture Draw Fee 12:45:08 [employer] CPT-10297 Venipuncture Draw Fee 09:25:31 CDT CPT-G0008 Administration of Influenza Virus Vaccine 14:41:29 CDT CPT-12795 Fluzone High-Dose Intramuscular Suspension 14:41:29 CDT CPT-Cryo Cryotherapy 11:48:20 CDT CPT-97701 EKG Trac and Interp 09:21:58 CDT CPT-30122 Chest 2V Frontal and Lat 09:21:58 CDT CPT-Cryo Cryotherapy 10:54:51 [employer] CPT-42158 Administration 2+ single or combination vaccines inc oral 10:42:19 CDT CPT-30678 Administration single or combination vaccine inc oral 10 :42:19 CDT CPT-57175 Pneumovax 10:42:19 CDT CPT-60218 Influenza High Dose age 65+ 10:42:19 CDT CPT-64667 Administration single or combination vaccine inc oral 13 :18:54 CDT CPT-65554 Influenza High Dose age 65+ 13:18:54 CDT CPT-17351 Venipuncture Draw Fee 11:53:16 CDT CPT-53304 LS spine comp w obliq 11:03:13 CDT CPT-Cryo Cryotherapy 08:27:16 [employer] CPT-31318 Administration single or combination vaccine inc oral 10 :56:34 CDT CPT-99455 Influenza High Dose age 65+ 10:56:34 CDT
--- OUTSIDE RECORDS SUMMARY | 2018-03-31 16:41 | XMS REPORT | Clinical Summary ---
Author Author Admin, E Organization [employer] Address Unknown Phone Unavailable Allergies, Adverse Reactions, [...] Simon Castillo MD Rheumatoid arthritis Steroid use, graphics editor V58.65 Resolved Simon Castillo MD Long-term (current) [...] Kerry Castillo MD Bronchitis, acute ICD-466.0 Kerry aCstillo MD Tinea pedis ICD-110.4 Kerry Castillo MD Hand pain, bilateral ICD-729.5 Kerry Castillo MD Steroid use, graphics editor ICD-V58.65 Kerry Castillo MD Hand pain, bilateral [...] ORAL TABS 1 po qd PIOGLITAZONE HCL 15402983448 Lin Castillo MD Active GLIMEPIRIDE 4 MG ORAL TABS 1 po BID GLIMEPIRIDE 06782062386 Active Simon Castillo MD Active ASPIRIN EC 81 MG ORAL TBEC 1 po qd ASPIRIN 01546750242 Active Simon Castillo MD Active CLOTRIMAZOLE 1 % EXT CREA Apply to affected area of feet twice daily PRN Rash CLOTRIMAZOLE 80813568755 No Longer Active Simon Castillo MD Active PREDNISONE 5 MG TAB 1 po BID PREDNISONE 82030631255 Active Simon Castillo MD Active FISH OIL 1000 MG CPDR 1 po BID OMEGA-3 FATTY ACIDS 81694718709 Active Simon Castillo MD Active LISINOPRIL 10 MG TABS 1 p qd LISINOPRIL 51897735516 Active Simon Castillo MD Active CLARITIN 10 MG TAB 1 tablet by mouth daily as needed for allergies LORATADINE 84801886559 No Longer Active Simon Castillo MD Active TRIAMCINOLONE ACETONIDE 0.1 % OINT Apply to affected areas TID for up to 2 weeks TRIAMCINOLONE ACETONIDE 26021837847 No Longer Active Simon Castillo MD Active LASIX 20 MG TAB 1 tablet by mouth daily x 2 days FUROSEMIDE 85625874287 No Longer Active Simon Castillo MD Active SULFASALAZINE 500 MG ORAL TBEC 2 tabs BID SULFASALAZINE 07978565436 No Longer Active Neto Oshea DO Active PREDNISONE 20 MG TAB 2 tabs daily for 3 days, 1 tab daily for 3 days, 1/2 tab daily for 2 days PREDNISONE 61998001854 No Longer Active Jilltriston Tatum APRN Active PREDNISONE 20 MG TAB 1 tablet daily for airway inflammation 02/25 PREDNISONE 13655143943 No Longer Active 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 RN NEUROSURGICAL Active AZITHROMYCIN 250 MG TABS 2 po qd x 1 day, then 1 po qd x 4 days AZITHROMYCIN 58239320152 No Longer Active Giles Tatum APRN Active HYDROCODONE-ACETAMINOPHEN 5-325 MG TABS 1 tab by mouth 8 hours as needed for pain HYDROCODONE-ACETAMINOPHEN 49323426122 Active Simon Castillo MD Active TRAMADOL HCL 50 MG TABS 1 po q6hr PRN Pain TRAMADOL HCL 03929752291 No Longer Active Simon Castillo MD Active PREDNISONE 5 MG TABS 1 po qod PREDNISONE 86144564204 No Longer Active Simon Castillo MD Active SYMBICORT 160-4.5 MCG/ACT AERO 2 puff BID BUDESONIDE- FORMOTEROL FUMARATE 23528423422 No Longer Active Simon Castillo MD Active FLONASE 50 MCG/ACT SUSP 2 puffs in each nostril daily FLUTICASONE PROPIONATE 47764886320 No Longer Active Simon Castillo MD Active PREDNISONE 20 MG TAB 2 tabs daily for 5 days, then 1 daily for 5 days PREDNISONE 48254592955 No Longer Active Simon Castillo MD Active PREDNISONE 20 MG TAB 2 tabs daily for 5 days, then 1 daily for 5 days, then 0.5 for 4 days PREDNISONE 06196157565 No Longer Active Simon Castillo MD Active PREDNISONE 20 MG TAB 2 tabs daily for 3 days, 1 tab daily for 3 days, 1/2 tab daily for 2 days PREDNISONE 21309699707 No Longer Active Simon Castillo MD Active AZITHROMYCIN 250 MG TABS 2 po qd x 1 day, then 1 po qd x 4 days AZITHROMYCIN 54097885013 No Longer Active Simon Castillo MD Active CARVEDILOL 6.25 MG TABS 1 po BID CARVEDILOL 23736636993 Active Simon Castillo MD Active LISINOPRIL-HYDROCHLOROTHIAZIDE 20-12.5 MG TABS 1/2 tab by mouth daily LISINOPRIL-HYDROCHLOROTHIAZIDE 54943527575 No Longer Active Simon Castillo MD Active TRAMADOL HCL 50 MG TABS 1-2 tablets every 6 hours as needed for pain TRAMADOL HCL 68652961227 Active Giles Tatum APRN Active PREDNISONE 5 MG TAB Take one po qod PREDNISONE 40943755735 No Longer Active Simon Castillo MD Active GLYBURIDE 5 MG TAB Take one by mouth daily GLYBURIDE 65414956389 No Longer Active Simon Castillo MD Active LEVAQUIN 750 MG TABS 1 po qod x 5 doses LEVOFLOXACIN 78034709663 No Longer Active Simon Castillo MD Active CETIRIZINE HCL 10 MG TABS 1 po qd as needed for allergies CETIRIZINE HCL 32773110245 No Longer Active Simon Castillo MD Active BILBERRY CAPS 1 tab daily BILBERRY (VACCINIUM MYRTILLUS) CAPS 51236841909 Active Simon Castillo MD Active ATENOLOL 50 MG TABS Take one by mouth daily ATENOLOL 01218076026 No Longer Active Simon Castillo MD Active FLONASE 50 MCG/ACT SUSP 2 puffs in each nostril daily FLUTICASONE PROPIONATE 32762877079 No Longer Active Simon Castillo MD Active GLYBURIDE 5 MG TAB Take one by mouth daily GLYBURIDE 19638520661 No Longer Active Simon Castillo MD Active SYMBICORT 80-4.5 MCG/ACT AERO 2 puffs twice a day BUDESONIDE-FORMOTEROL FUMARATE 04820209021 No Longer Active Simon Castillo MD Active PREDNISONE 20 MG TAB 2 tabs daily for 4 days, 1 tab daily for 4 days, 1/2 tab daily for 4 days PREDNISONE 83583488922 No Longer Active Simon Castillo MD Active AMOXICILLIN 500 MG CAPS 2 po BID x 10 days AMOXICILLIN 06453674960 No Longer Active Simon Castillo MD Active METFORMIN HCL 1000 MG TABS 1 by [facility] twice a day METFORMIN HCL 36888861924 No Longer Active Simon Castillo MD Active LUTEIN-ZEAXANTHIN 6-1 MG TABS Take 2 by mouth daily LUTEIN-ZEAXANTHIN 40359950742 Active Simon Castillo MD Active IBUPROFEN 800 MG TABS Take 1 tab every 6 hrs prn IBUPROFEN 51489104905 No Longer Active Simon Castillo MD Active GLYBURIDE 2.5 MG TABS Take one by mouth daily GLYBURIDE 48122039529 No Longer Active Simon Castillo MD Active LANCETS MISC 2 qd LANCETS 78617738769 Active Pamela Conde Active ACACIA CONTOUR TEST STRP Use with testing twice daily GLUCOSE BLOOD 58248014137 Active Simon Castillo MD Active GLYBURIDE 2.5 MG TABS Take one by mouth daily GLYBURIDE 2.5 MG TABS 205986 GLYBURIDE Inactive PREDNISONE 20 MG TAB 2 tabs daily for 4 days, 1 tab daily for 4 days, 1/2 tab daily for 4 days PREDNISONE 20 MG TAB 856889 PREDNISONE Inactive SYMBICORT 80-4.5 MCG/ACT AERO 2 puffs twice a day SYMBICORT 80-4.5 MCG/ACT AERO BUDESONIDE-FORMOTEROL FUMARATE Inactive FLONASE 50 MCG/ACT SUSP 2 puffs in each nostril daily FLONASE 50 MCG/ACT SUSP 5711968 FLUTICASONE PROPIONATE Inactive ATENOLOL 50 MG TABS Take one by mouth daily ATENOLOL 50 MG TABS 300874 ATENOLOL Inactive CETIRIZINE HCL 10 MG TABS 1 po qd as needed for allergies CETIRIZINE HCL 10 MG TABS 2802682 CETIRIZINE HCL Inactive LEVAQUIN 750 MG TABS 1 po qod x 5 doses LEVAQUIN 750 MG TABS 697589 LEVOFLOXACIN Inactive GLYBURIDE 5 MG TAB Take one by mouth daily GLYBURIDE 5 MG TAB 291451 GLYBURIDE Inactive PREDNISONE 5 MG TAB Take one po qod PREDNISONE 5 MG TAB 034928 PREDNISONE Inactive PREDNISONE 20 MG TAB 2 tabs daily for 5 days, then 1 daily for 5 days PREDNISONE 20 MG TAB 860554 PREDNISONE Inactive FLONASE 50 MCG/ACT SUSP 2 puffs in each nostril daily FLONASE 50 MCG/ACT SUSP 6197711 FLUTICASONE PROPIONATE Inactive SYMBICORT 160-4.5 MCG/ACT AERO 2 puff BID SYMBICORT 160-4.5 MCG/ACT AERO BUDESONIDE-FORMOTEROL FUMARATE Inactive PREDNISONE 5 MG TABS 1 po qod PREDNISONE 5 MG TABS 673669 PREDNISONE Inactive PREDNISONE 20 MG TAB 1 tablet daily for airway inflammation 02/25 PREDNISONE 20 MG TAB 559488 PREDNISONE Inactive SULFASALAZINE 500 MG ORAL TBEC 2 tabs BID SULFASALAZINE 500 MG ORAL TBEC 107201 SULFASALAZINE Inactive LASIX 20 MG TAB 1 tablet by mouth daily x 2 days LASIX 20 MG TAB 621852 FUROSEMIDE Inactive CLARITIN 10 MG TAB 1 tablet by mouth daily as needed for allergies CLARITIN 10 MG TAB 887552 LORATADINE Inactive CLOTRIMAZOLE 1 % EXT CREA Apply to affected area of feet twice daily PRN Rash CLOTRIMAZOLE 1 % EXT CREA 695873 CLOTRIMAZOLE Inactive AMOXICILLIN 500 MG CAPS 2 po BID x 10 days AMOXICILLIN 500 MG CAPS 804257 AMOXICILLIN Inactive GLYBURIDE 5 MG TAB Take one by mouth daily GLYBURIDE 5 MG TAB 831564 GLYBURIDE Inactive AZITHROMYCIN 250 MG TABS 2 po qd x 1 day, then 1 po qd x 4 days AZITHROMYCIN 250 MG TABS 1547510 AZITHROMYCIN Inactive PREDNISONE 20 MG TAB 2 tabs daily for 3 days, 1 tab daily for 3 days, 1/2 tab daily for 2 days PREDNISONE 20 MG TAB 179464 PREDNISONE Inactive PREDNISONE 20 MG TAB 2 tabs daily for 5 days, then 1 daily for 5 days, then 0.5 for 4 days PREDNISONE 20 MG TAB 116140 PREDNISONE Inactive AZITHROMYCIN 250 MG TABS 2 po qd x 1 day, then 1 po qd x 4 days AZITHROMYCIN 250 MG TABS 2513610 AZITHROMYCIN Inactive PREDNISONE 20 MG TAB 2 tabs daily for 3 days, 1 tab daily for 3 days, 1/2 tab daily for 2 days PREDNISONE 20 MG TAB 101978 PREDNISONE Inactive TRIAMCINOLONE ACETONIDE 0.1 % OINT Apply to affected areas TID for up to 2 weeks TRIAMCINOLONE ACETONIDE 0.1 % OINT 9937068 TRIAMCINOLONE ACETONIDE Inactive Immunizations Vaccine Administration Date [...] hemoglobin 10.9 % 4.3-6.0 Lab Report: CBC, BA1C - Hematology leukocyte count, blood 7.7 10^3/MM^3 [...] 10^3/MM^3 10*3/mm3 142-424 Lab Report: Lipid Panel, [facility], Comp. Metabolic Panel - Chemistry cholesterol, serum 126 mg/dL 325-844 0401/02/07 triglyceride, serum, fasting 83 mg/dL 30-200 HDL cholesterol, serum 70 mg/dL 32-96 LDL cholesterol, serum 39 mg/dL 0-130 hemoglobin A1C, blood, as % of total hemoglobin 8.3 % 4.3-6.0 sodium, serum 141 mmol/L 865-356 3713/02/07 carbon dioxide, venous blood 26.0 mmol/L 21.0-32.0 [...] 0.00-1.00 Encounters Code Encounter Date Provider Facility CPT-17594 Level 4 Est. Patient 16:11:23 CDT Simon Castillo MD [facility] CPT-46655 Level 4 Est. Patient 09:29:28 LIBRARY CUSTOMER SERVICE CLERK Simon Castillo MD [facility] CPT-67843 Level 3 Est. Patient 09:18:25 CDT Simon Castillo MD [facility] CPT-10259 Level 4 Est. Patient 11:51:23 CDT Simon Castillo MD [facility] CPT-96621 Level 4 Est. Patient 14:32:04 CDT Neto Oshea DO [facility] CPT-71762 Level 3 Est. Patient 08:41:43 CDT Giles Tatum [facility][note 3] CPT-89131 Level 3 Est. Patient 08:40:53 CDT Giles Salcidol [facility][note 3] CPT-32529 Level 3 Est. Patient 08:36:52 CDT Giles Tatum [facility][note 3] CPT-94185 Level 3 Est. Patient 09:08:44 CDT Glies Salcidol [facility][note 3] CPT-27037 Level 4 Est. Patient 09:17:32 LIBRARY CUSTOMER SERVICE CLERK Simon Castillo MD [facility] CPT-90851 Level 3 Est. Patient 11:22:22 LIBRARY CUSTOMER SERVICE CLERK Simon Castillo MD [facility] CPT-25054 Level 3 Est. Patient 09:02:14 CDT Simon Castillo MD [facility] CPT-12919 Level 4 Est. Patient 08:47:25 CDT Simon Castillo MD [facility] CPT-57944 Level 4 Est. Patient 10:17:25 CDT Simon Castillo MD [facility] CPT-56167 Level 4 Est. Patient 10:10:09 LIBRARY CUSTOMER SERVICE CLERK Simon Castillo MD [facility] CPT-51958 Level 4 Est. Patient 11:48:19 CDT Simon Castillo MD [facility] CPT-83679 Level 4 Est. Patient 08:59:29 CDT Simon Castillo MD [facility] CPT-95777 Level 4 Est. Patient 10:52:51 LIBRARY CUSTOMER SERVICE CLERK Simon Castillo MD [facility] CPT-77529 Level 4 Est. Patient 11:50:30 CDT Simon Castillo MD [facility] CPT-24438 Level 4 Est. Patient 09:54:46 CDT Simon Castillo MD [facility] CPT-85047 Level 3 Est. Patient 11:10:14 CDT Simon Castillo MD [facility] CPT-31424 Level 4 Est. Patient 09:44:02 CDT Simon Castillo MD [facility] CPT-03236 Level 3 Est. Patient 09:27:48 CDT Simon Castillo MD [facility] CPT-80850 Level 3 Est. Patient 09:58:06 LIBRARY CUSTOMER SERVICE CLERK Simon Castillo MD [facility] CPT-20501 Level 3 Est. Patient 09:51:35 CDT Simon Castillo MD [facility] Procedures Code Procedure Name Date Entry Date Standard Description CPT-55256 Lipid - LAB USE ONLY 17:15:33 CDT CPT-05758 HGBA1C - LAB USE ONLY 17:15:33 CDT CPT-49387 CMP - LAB USE ONLY 17:15:33 CDT CPT-99632 Venipuncture Draw Fee 17:15:33 CDT CPT-TCM Transitional Care Mgmt-High 11:01:28 LIBRARY CUSTOMER SERVICE CLERK CPT-61259 First Vx - Ix admin for Medicare patients 17:33:39 CDT CPT-16579 Fluzone High-Dose Intramuscular Suspension 17:33:39 CDT CPT-G0438 Initial Annual Wellness Exam 08:57:30 CDT CPT-11779 Chest 2V Frontal and Lat - XRAY USE ONLY 09:00:14 CDT CPT-94858 Venipuncture Draw Fee 13:33:02 CDT CPT-34439 Bone Density 09:37:49 LIBRARY CUSTOMER SERVICE CLERK CPT-40367 Fluzone High Dose 17:20:42 CDT CPT-00312 Prevnar 13 17:20:42 CDT CPT-52408 Administration 2+ single or combination vaccines inc oral 17:20:42 CDT CPT-47502 Administration single or combination vaccine inc oral 17 :20:42 CDT CPT-76802 Hand comp min 3V 09:24:38 CDT CPT-61431 Venipuncture Draw Fee 08:07:29 LIBRARY CUSTOMER SERVICE CLERK CPT-38192 Venipuncture Draw Fee 09:02:51 LIBRARY CUSTOMER SERVICE CLERK CPT-39379 Venipuncture Draw Fee 12:45:08 LIBRARY CUSTOMER SERVICE CLERK CPT-86765 Venipuncture Draw Fee 09:25:31 CDT CPT-G0008 Administration of Influenza Virus Vaccine 14:41:29 CDT CPT-38566 Fluzone High-Dose Intramuscular Suspension 14:41:29 CDT CPT-Cryo Cryotherapy 11:48:20 CDT CPT-22592 EKG Trac and Interp 09:21:58 CDT CPT-57757 Chest 2V Frontal and Lat 09:21:58 CDT CPT-Cryo Cryotherapy 10:54:51 LIBRARY CUSTOMER SERVICE CLERK CPT-74632 Administration 2+ single or combination vaccines inc oral 10:42:19 CDT CPT-02649 Administration single or combination vaccine inc oral 10 :42:19 CDT CPT-30688 Pneumovax 10:42:19 CDT CPT-40677 Influenza High Dose age 65+ 10:42:19 CDT CPT-66439 Administration single or combination vaccine inc oral 13 :18:54 CDT CPT-89034 Influenza High Dose age 65+ 13:18:54 CDT CPT-30329 Venipuncture Draw Fee 11:53:16 CDT CPT-42381 LS spine comp w obliq 11:03:13 CDT CPT-Cryo Cryotherapy 08:27:16 LIBRARY CUSTOMER SERVICE CLERK CPT-37072 Administration single or combination vaccine inc oral 10 :56:34 CDT CPT-81741 Influenza High Dose age 65+ 10:56:34 CDT
--- OUTSIDE RECORDS SUMMARY | 2018-03-31 16:42 | XMS REPORT | Clinical Summary ---
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 Status Provider Patient Instruction VIAGRA 100 MG ORAL TABLET 0.5 to 1 po qd PRN Erectile dysfunction SILDENAFIL CITRATE 60020519840 Active Simon Castillo MD Active LUTEIN-ZEAXANTHIN 6-1 MG ORAL TABLET 2 po qd LUTEIN- ZEAXANTHIN 30406914505 Active Simon Castillo MD Active BILBERRY CAPSULE 1 po qd BILBERRY (VACCINIUM MYRTILLUS) CAPS 31146839353 Active Simon Castillo MD Active TRAMADOL HCL 50 MG ORAL TABLET 1-2 tablets every 6 hours as needed for pain TRAMADOL HCL 85926594722 No Longer Active Simon Castillo MD Active HYDROCODONE-ACETAMINOPHEN 5-325 MG ORAL TABLET 1 tab by mouth 8 hours as needed for pain HYDROCODONE-ACETAMINOPHEN 59411653408 No Longer Active Simon Castillo MD Active BUMETANIDE 0.5 MG ORAL TABLET 1 po qd BUMETANIDE 86400119934 Active Simon Castillo MD Active AUGMENTIN 875-125 MG ORAL TABLET 1 po BID x 10 days AMOXICILLIN-POT CLAVULANATE 36067217414 No Longer Active Simon Castillo MD Active PIOGLITAZONE HCL 30 MG ORAL TABLET 1 po qd PIOGLITAZONE HCL 46023886823 Active Simon Castillo MD Active GLIMEPIRIDE 4 MG ORAL TABLET 1 po BID GLIMEPIRIDE 16544534273 Active Simon Castillo MD Active ASPIRIN EC 81 MG ORAL TABLET DELAYED RELEASE 1 po qd ASPIRIN 61474546365 Active Simon Castillo MD Active CLOTRIMAZOLE 1 % EXTERNAL CREAM Apply to affected area of feet twice daily PRN Rash CLOTRIMAZOLE 58137643959 No Longer Active Simon Castillo MD Active PREDNISONE 5 MG ORAL TABLET 1 po BID PREDNISONE 49404698242 Active Dolly MCDERMOTT Active FISH OIL 1000 MG ORAL CAPSULE DELAYED RELEASE 1 po BID OMEGA- 3 FATTY ACIDS 99996418389 Active Simon Castillo MD Active LISINOPRIL 10 MG ORAL TABLET 1 p qd LISINOPRIL 33877952369 Active Simon Castillo MD Active CLARITIN 10 MG ORAL TABLET 1 tablet by mouth daily as needed for allergies LORATADINE 80301372315 No Longer Active Simon Castillo MD Active TRIAMCINOLONE ACETONIDE 0.1 % EXTERNAL OINTMENT Apply to affected areas TID for up to 2 weeks TRIAMCINOLONE ACETONIDE 39573538403 No Longer Active Simon Castillo MD Active LASIX 20 MG ORAL TABLET 1 tablet by mouth daily x 2 days FUROSEMIDE 91513919978 No Longer Active Simon Castillo MD Active SULFASALAZINE 500 MG ORAL TABLET DELAYED RELEASE 2 tabs BID 02/26 SULFASALAZINE 58144424148 No Longer Active Neto Oshea DO Active PREDNISONE 20 MG ORAL TABLET 2 tabs daily for 3 days, 1 tab daily for 3 days, 1/2 tab daily for 2 days PREDNISONE 02064326834 No Longer Active Jillina Fratico HEMPHILL Active PREDNISONE 20 MG ORAL TABLET 1 tablet daily for airway inflammation PREDNISONE 68920173654 No Longer Active Jillina Fraamayal [employer] Active AZITHROMYCIN 250 MG ORAL TABLET 2 po qd x 1 day, then 1 po qd x 4 days 01/28 AZITHROMYCIN 89259487871 No Longer Active Jillina Fraamayal [employer]INO [employer]ER Active TRAMADOL HCL 50 MG ORAL TABLET 1 po q6hr PRN Pain TRAMADOL HCL 72572796041 No Longer Active Simon Castillo MD Active PREDNISONE 5 MG ORAL TABLET 1 po qod PREDNISONE 32967749983 No Longer Active Simon Castillo MD Active SYMBICORT 160-4.5 MCG/ACT INHALATION AEROSOL 2 puff BID BUDESONIDE-FORMOTEROL FUMARATE 88286378102 No Longer Active Simon Castillo MD Active FLONASE 50 MCG/ACT NASAL SUSPENSION 2 puffs in each nostril daily FLUTICASONE PROPIONATE 31226669255 No Longer Active Simon Castillo MD Active PREDNISONE 20 MG ORAL TABLET 2 tabs daily for 5 days, then 1 daily for 5 days PREDNISONE 51262154296 No Longer Active Simon Castillo MD Active PREDNISONE 20 MG ORAL TABLET 2 tabs daily for 5 days, then 1 daily for 5 days , then 0.5 for 4 days PREDNISONE 66964975354 No Longer Active Simon Castillo MD Active PREDNISONE 20 MG ORAL TABLET 2 tabs daily for 3 days, 1 tab daily for 3 days, 1/2 tab daily for 2 days PREDNISONE 13572113441 No Longer Active Simon Castillo MD Active AZITHROMYCIN 250 MG ORAL TABLET 2 po qd x 1 day, then 1 po qd x 4 days 03/16 AZITHROMYCIN 61455999158 No Longer Active Simon Castillo MD Active CARVEDILOL 6.25 MG ORAL TABLET 1 po BID CARVEDILOL 35749510107 Active Simon Castillo MD Active LISINOPRIL-HYDROCHLOROTHIAZIDE 20-12.5 MG ORAL TABLET 1/2 tab by mouth daily LISINOPRIL-HYDROCHLOROTHIAZIDE 28268712584 No Longer Active Simon Castillo MD Active PREDNISONE 5 MG ORAL TABLET Take one po qod PREDNISONE 07601357279 No Longer Active Simon Castillo MD Active GLYBURIDE 5 MG ORAL TABLET Take one by mouth daily GLYBURIDE 99058795761 No Longer Active Simon Castillo MD Active LEVAQUIN 750 MG ORAL TABLET 1 po qod x 5 doses LEVOFLOXACIN 76491954664 No Longer Active Simon Castillo MD Active CETIRIZINE HCL 10 MG ORAL TABLET 1 po qd as needed for allergies CETIRIZINE HCL 57929785517 No Longer Active Simon Castillo MD Active ATENOLOL 50 MG ORAL TABLET Take one by mouth daily ATENOLOL 97611743898 No Longer Active Simon Castillo MD Active FLONASE 50 MCG/ACT NASAL SUSPENSION 2 puffs in each nostril daily FLUTICASONE PROPIONATE 07446944333 No Longer Active Simon Castillo MD Active GLYBURIDE 5 MG ORAL TABLET Take one by mouth daily GLYBURIDE 62723060138 No Longer Active Simon Castillo MD Active SYMBICORT 80-4.5 MCG/ACT INHALATION AEROSOL 2 puffs twice a day BUDESONIDE-FORMOTEROL FUMARATE 47148505568 No Longer Active Simon Castillo MD Active PREDNISONE 20 MG ORAL TABLET 2 tabs daily for 4 days, 1 tab daily for 4 days, 1/2 tab daily for 4 days PREDNISONE 23749403879 No Longer Active Simon Castillo MD Active AMOXICILLIN 500 MG ORAL CAPSULE 2 po BID x 10 days AMOXICILLIN 76891045304 No Longer Active Simon Castillo MD Active METFORMIN HCL 1000 MG ORAL TABLET 1 by mounth twice a day METFORMIN HCL 30973907855 No Longer Active Simon Castillo MD Active IBUPROFEN 800 MG ORAL TABLET Take 1 tab every 6 hrs prn IBUPROFEN 23651738020 No Longer Active Simon Castillo MD Active GLYBURIDE 2.5 MG ORAL TABLET Take one by mouth daily GLYBURIDE 73053436886 No Longer Active Simon Castillo MD Active LANCETS 2 qd LANCETS 39325164217 Active Pamela Conde Active ACACIA CONTOUR TEST IN VITRO STRIP Use with testing twice daily GLUCOSE BLOOD 66963035552 Active Simon Castillo MD Active GLYBURIDE 2.5 MG ORAL TABLET Take one by mouth daily GLYBURIDE 2.5 MG ORAL TABLET 947601 GLYBURIDE Inactive PREDNISONE 20 MG ORAL TABLET 2 tabs daily for 4 days, 1 tab daily for 4 days, 1/2 tab daily for 4 days PREDNISONE 20 MG ORAL TABLET 814578 PREDNISONE Inactive SYMBICORT 80-4.5 MCG/ACT INHALATION AEROSOL 2 puffs twice a day SYMBICORT 80-4.5 MCG/ACT INHALATION AEROSOL BUDESONIDE- FORMOTEROL FUMARATE Inactive FLONASE 50 MCG/ACT NASAL SUSPENSION 2 puffs in each nostril daily FLONASE 50 MCG/ACT NASAL SUSPENSION 9342348 FLUTICASONE PROPIONATE Inactive ATENOLOL 50 MG ORAL TABLET Take one by mouth daily ATENOLOL 50 MG ORAL TABLET 967849 ATENOLOL Inactive CETIRIZINE HCL 10 MG ORAL TABLET 1 po qd as needed for allergies CETIRIZINE HCL 10 MG ORAL TABLET 7930031 CETIRIZINE HCL Inactive LEVAQUIN 750 MG ORAL TABLET 1 po qod x 5 doses LEVAQUIN 750 MG ORAL TABLET 771083 LEVOFLOXACIN Inactive GLYBURIDE 5 MG ORAL TABLET Take one by mouth daily GLYBURIDE 5 MG ORAL TABLET 995144 GLYBURIDE Inactive PREDNISONE 5 MG ORAL TABLET Take one po qod PREDNISONE 5 MG ORAL TABLET 196274 PREDNISONE Inactive PREDNISONE 20 MG ORAL TABLET 2 tabs daily for 5 days, then 1 daily for 5 days PREDNISONE 20 MG ORAL TABLET 192122 PREDNISONE Inactive FLONASE 50 MCG/ACT NASAL SUSPENSION 2 puffs in each nostril daily FLONASE 50 MCG/ACT NASAL SUSPENSION 0089635 FLUTICASONE PROPIONATE Inactive SYMBICORT 160-4.5 MCG/ACT INHALATION AEROSOL 2 puff BID SYMBICORT 160-4.5 MCG/ACT INHALATION AEROSOL BUDESONIDE-FORMOTEROL FUMARATE Inactive PREDNISONE 5 MG ORAL TABLET 1 po qod PREDNISONE 5 MG ORAL TABLET 151419 PREDNISONE Inactive PREDNISONE 20 MG ORAL TABLET 1 tablet daily for airway inflammation PREDNISONE 20 MG ORAL TABLET 205675 PREDNISONE Inactive SULFASALAZINE 500 MG ORAL TABLET DELAYED RELEASE 2 tabs BID 02/26 SULFASALAZINE 500 MG ORAL TABLET DELAYED RELEASE 563549 SULFASALAZINE Inactive LASIX 20 MG ORAL TABLET 1 tablet by mouth daily x 2 days 2016/06/ 10 LASIX 20 MG ORAL TABLET 052395 FUROSEMIDE Inactive CLARITIN 10 MG ORAL TABLET 1 tablet by mouth daily as needed for allergies CLARITIN 10 MG ORAL TABLET 571310 LORATADINE Inactive CLOTRIMAZOLE 1 % EXTERNAL CREAM Apply to affected area of feet twice daily PRN Rash CLOTRIMAZOLE 1 % EXTERNAL CREAM 308855 CLOTRIMAZOLE Inactive HYDROCODONE-ACETAMINOPHEN 5-325 MG ORAL TABLET 1 tab by mouth 8 hours as needed for pain HYDROCODONE-ACETAMINOPHEN 5-325 MG ORAL TABLET 801488 HYDROCODONE-ACETAMINOPHEN Inactive TRAMADOL HCL 50 MG ORAL TABLET 1-2 tablets every 6 hours as needed for pain TRAMADOL HCL 50 MG ORAL TABLET 445947 TRAMADOL HCL Inactive AMOXICILLIN 500 MG ORAL CAPSULE 2 po BID x 10 days AMOXICILLIN 500 MG ORAL CAPSULE 900472 AMOXICILLIN Inactive GLYBURIDE 5 MG ORAL TABLET Take one by mouth daily GLYBURIDE 5 MG ORAL TABLET 682877 GLYBURIDE Inactive AZITHROMYCIN 250 MG ORAL TABLET 2 po qd x 1 day, then 1 po qd x 4 days 03/16 AZITHROMYCIN 250 MG ORAL TABLET 080467 AZITHROMYCIN Inactive PREDNISONE 20 MG ORAL TABLET 2 tabs daily for 3 days, 1 tab daily for 3 days, 1/2 tab daily for 2 days PREDNISONE 20 MG ORAL TABLET 660273 PREDNISONE Inactive PREDNISONE 20 MG ORAL TABLET 2 tabs daily for 5 days, then 1 daily for 5 days , then 0.5 for 4 days PREDNISONE 20 MG ORAL TABLET 433682 PREDNISONE Inactive AZITHROMYCIN 250 MG ORAL TABLET 2 po qd x 1 day, then 1 po qd x 4 days 01/28 AZITHROMYCIN 250 MG ORAL TABLET 426179 AZITHROMYCIN Inactive PREDNISONE 20 MG ORAL TABLET 2 tabs daily for 3 days, 1 tab daily for 3 days, 1/2 tab daily for 2 days PREDNISONE 20 MG ORAL TABLET 234094 PREDNISONE Inactive TRIAMCINOLONE ACETONIDE 0.1 % EXTERNAL OINTMENT Apply to affected areas TID for up to 2 weeks TRIAMCINOLONE ACETONIDE 0.1 % EXTERNAL OINTMENT 0761832 TRIAMCINOLONE ACETONIDE Inactive AUGMENTIN 875-125 MG ORAL TABLET 1 po BID x 10 days AUGMENTIN 875-125 MG ORAL TABLET 503837 AMOXICILLIN-POT CLAVULANATE Inactive Immunizations Vaccine Administration Date [...] Peptide - Chemistry sodium, serum 142 mmol/L 251-651 5999/07/18 potassium, serum 5.0 mmol/L 3.5-5.2 chloride, serum [...] Panel - Chemistry sodium, serum 140 mmol/L 884-608 8272/07/13 carbon dioxide, venous blood 23.7 mmol/L 21.0-32.0 [...] dipstick Negative Negative sodium, serum 142 mmol/L 865-596 7079/01/08 carbon dioxide, venous blood 23.9 mmol/L 21.0-32.0 [...] Negative;Positive Encounters Code Encounter Date Provider Facility CPT-69030 Level 4 Est. Patient 14:06:23 PHILOSOPHY SPECIALIST Simon Castillo MD [facility] CPT-56077 Level 3 Est. Patient 12:04:38 PHILOSOPHY SPECIALIST Giles Tatum [facility] CPT-97520 Level 3 Est. Patient 11:57:09 PHILOSOPHY SPECIALIST Giles Tatum [facility] CPT-17258 Level 3 Est. Patient 11:48:57 PHILOSOPHY SPECIALIST Giles Tatum [facility] CPT-63248 Level 4 Est. Patient 09:54:36 CDT Simon Castillo MD [facility] CPT-11891 Level 4 Est. Patient 08:48:38 CDT Simon Castillo MD [facility] CPT-60059 Level 4 Est. Patient 09:54:08 CDT Simon Castillo MD [facility] CPT-95978 Level 4 Est. Patient 16:11:23 CDT Simon Castillo MD [facility] CPT-45442 Level 4 Est. Patient 09:29:28 PHILOSOPHY SPECIALIST Simon Castillo MD [facility] CPT-29531 Level 3 Est. Patient 09:18:25 CDT Simon Castillo MD [facility] CPT-34207 Level 4 Est. Patient 11:51:23 CDT Simon Castillo MD [facility] CPT-07679 Level 4 Est. Patient 14:32:04 CDT Neto Oshea DO [facility] CPT-81641 Level 3 Est. Patient 08:41:43 CDT Giles Tatum [facility] CPT-49306 Level 3 Est. Patient 08:40:53 CDT Jonathanviratriston Salcidoalejandrina [facility] CPT-46330 Level 3 Est. Patient 08:36:52 CDT Giles Salcidol [facility] CPT-22605 Level 3 Est. Patient 09:08:44 CDT Jonathanmeli Nashtico [facility] CPT-44242 Level 4 Est. Patient 09:17:32 PHILOSOPHY SPECIALIST Simon Castillo MD [facility] CPT-09712 Level 3 Est. Patient 11:22:22 PHILOSOPHY SPECIALIST Simon Castillo MD [facility] CPT-24271 Level 3 Est. Patient 09:02:14 CDT Simon Castillo MD [facility] CPT-90902 Level 4 Est. Patient 08:47:25 CDT Simon Castillo MD [facility] CPT-04674 Level 4 Est. Patient 10:17:25 CDT Simon Castillo MD [facility] CPT-00397 Level 4 Est. Patient 10:10:09 PHILOSOPHY SPECIALIST Simon Castillo MD [facility] CPT-78086 Level 4 Est. Patient 11:48:19 CDT Simon Catsillo MD [facility] CPT-20419 Level 4 Est. Patient 08:59:29 CDT Simon Castillo MD [facility] CPT-51417 Level 4 Est. Patient 10:52:51 PHILOSOPHY SPECIALIST Simon Castillo MD [facility] CPT-25378 Level 4 Est. Patient 11:50:30 CDT Simon Castillo MD [facility] CPT-20963 Level 4 Est. Patient 09:54:46 CDT Simon Castillo MD [facility] CPT-65689 Level 3 Est. Patient 11:10:14 CDT Simon Castillo MD [facility] CPT-05715 Level 4 Est. Patient 09:44:02 CDT Simon Castillo MD [facility] CPT-47038 Level 3 Est. Patient 09:27:48 CDT Simon Castillo MD [facility] CPT-06036 Level 3 Est. Patient 09:58:06 PHILOSOPHY SPECIALIST Simon Castillo MD [facility] CPT-40621 Level 3 Est. Patient 09:51:35 CDT Simon Castillo MD [facility] Procedures Code Procedure Name Date Entry Date Standard Description CPT-27867 EKG Trac and Interp - XRAY USE ONLY 12:19:18 PHILOSOPHY SPECIALIST 09/29 CPT-87396 Chest, 2 views 12:19:17 PHILOSOPHY SPECIALIST CPT-Cryo Cryotherapy 09:54:37 CDT CPT-81985 First Vx - Ix admin for Medicare patients 09:13:10 CDT CPT-59796 Fluzone High-Dose Intramuscular Suspension 09:13:10 CDT CPT-G0439 Subsequent Annual Wellness Exam 09:41:17 CDT CPT-21902 Lipid - LAB USE ONLY 17:15:33 CDT CPT-62137 HGBA1C - LAB USE ONLY 17:15:33 CDT CPT-19268 CMP - LAB USE ONLY 17:15:33 CDT CPT-10532 Venipuncture Draw Fee 17:15:33 CDT CPT-TCM Transitional Care Mgmt-High 11:01:28 PHILOSOPHY SPECIALIST CPT-04601 First Vx - Ix admin for Medicare patients 17:33:39 CDT CPT-73297 Fluzone High-Dose Intramuscular Suspension 17:33:39 CDT CPT-G0438 Initial Annual Wellness Exam 08:57:30 CDT CPT-80813 Chest 2V Frontal and Lat - XRAY USE ONLY 09:00:14 CDT CPT-38240 Venipuncture Draw Fee 13:33:02 CDT CPT-52956 Bone Density 09:37:49 PHILOSOPHY SPECIALIST CPT-59918 Fluzone High Dose 17:20:42 CDT CPT-99282 Prevnar 13 17:20:42 CDT CPT-04037 Administration 2+ single or combination vaccines inc oral 17:20:42 CDT CPT-99843 Administration single or combination vaccine inc oral 17 :20:42 CDT CPT-17552 Hand comp min 3V 09:24:38 CDT CPT-81358 Venipuncture Draw Fee 08:07:29 PHILOSOPHY SPECIALIST CPT-24166 Venipuncture Draw Fee 09:02:51 PHILOSOPHY SPECIALIST CPT-11674 Venipuncture Draw Fee 12:45:08 PHILOSOPHY SPECIALIST CPT-68655 Venipuncture Draw Fee 09:25:31 CDT CPT-G0008 Administration of Influenza Virus Vaccine 14:41:29 CDT CPT-56778 Fluzone High-Dose Intramuscular Suspension 14:41:29 CDT CPT-Cryo Cryotherapy 11:48:20 CDT CPT-43243 EKG Trac and Interp 09:21:58 CDT CPT-89884 Chest 2V Frontal and Lat 09:21:58 CDT CPT-Cryo Cryotherapy 10:54:51 PHILOSOPHY SPECIALIST CPT-96502 Administration 2+ single or combination vaccines inc oral 10:42:19 CDT CPT-13606 Administration single or combination vaccine inc oral 10 :42:19 CDT CPT-25674 Pneumovax 10:42:19 CDT CPT-55266 Influenza High Dose age 65+ 10:42:19 CDT CPT-73928 Administration single or combination vaccine inc oral 13 :18:54 CDT CPT-29625 Influenza High Dose age 65+ 13:18:54 CDT CPT-98196 Venipuncture Draw Fee 11:53:16 CDT CPT-31718 LS spine comp w obliq 11:03:13 CDT CPT-Cryo Cryotherapy 08:27:16 PHILOSOPHY SPECIALIST CPT-86850 Administration single or combination vaccine inc oral 10 :56:34 CDT CPT-40039 Influenza High Dose age 65+ 10:56:34 CDT
[2018-03-31 16:43] LABS: ALANINE AMINOTRANSFERASE 8 U/L (0-55); ALBUMIN 3.8 GM/DL (3.2-4.5); ALKALINE PHOSPHATASE 73 U/L (40-136); BILIRUBIN,TOTAL 0.5 MG/DL (0.1-1.0); BUN/CREATININE RATIO 7; CALCIUM 8.9 MG/DL (8.5-10.1); CARBON DIOXIDE 23 MMOL/L (21-32); CHLORIDE 97 MMOL/L (98-107); CREATININE SERUM 2.14 MG/DL (0.60-1.30); GFR ESTIMATED 30; MAGNESIUM 1.8 MG/DL (1.8-2.4); POTASSIUM 3.8 MMOL/L (3.6-5.0); SODIUM 135 MMOL/L (135-145); TOTAL PROTEIN 6.5 GM/DL (6.4-8.2)
--- OUTSIDE RECORDS SUMMARY | 2018-03-31 16:43 | XMS REPORT | Clinical Summary ---
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 Kerry Castillo MD Pharyngitis ICD-462 Kerry Castillo MD Dyspnea ICD-786.09 Kerry Castillo MD 2016 Peripheral edema ICD-782.3 Kerry Castillo MD Pneumonia, right lower lobe ICD-486 Kerry Castillo MD Sinusitis, acute ICD-461.9 Kerry Castillo MD Dyspnea ICD-786.09 Inactive Simon Castillo MD 2016 Syncope and collapse ICD-780.2 Inactive Simon Castillo MD abrasion, face, infected ICD-910.1 Inactive Simon Castillo MD Other injury of unspecified body region, initial encounter ICD-879.8 Inactive Simon Castillo MD Lesion of skin of face ICD-709.9 Inactive Simon Castillo MD Medication List Medication Instructions Start Date Stop Date Generic Name NDC Status Provider Patient Instruction BACTRIM DS 800-160 MG ORAL TABLET 1 po BID x 7 days SULFAMETHOXAZOLE-TRIMETHOPRIM 26539654465 Active Simon Castillo MD Active AZITHROMYCIN 250 MG ORAL TABLET 2 po qd x 1, then 1 po qd x 4 AZITHROMYCIN 81564206946 No Longer Active Simon Castillo MD Active PROMETHAZINE-CODEINE 6.25-10 MG/5ML ORAL SYRUP 5ml po qHS PRN Cough PROMETHAZINE-CODEINE 14317941608 No Longer Active Simon Castillo MD Active SINGULAIR 10 MG ORAL TABLET 1 po qd PRN Asthma/Allergies MONTELUKAST SODIUM 67762858956 Active Simon Castillo MD Active PREDNISONE 20 MG ORAL TABLET 2 po qd x 5 days PREDNISONE 27423731821 No Longer Active Simon Castillo MD Active VIAGRA 100 MG ORAL TABLET 0.5 to 1 po qd PRN Erectile dysfunction SILDENAFIL CITRATE 60062478296 Active Simon Castillo MD Active LUTEIN-ZEAXANTHIN 6-1 MG ORAL TABLET 2 po qd LUTEIN- ZEAXANTHIN 45098027156 Active Simon Castillo MD Active BILBERRY CAPSULE 1 po qd BILBERRY (VACCINIUM MYRTILLUS) CAPS 63794896127 Active Simon Castillo MD Active TRAMADOL HCL 50 MG ORAL TABLET 1-2 tablets every 6 hours as needed for pain TRAMADOL HCL 72835474163 No Longer Active Simon Castillo MD Active HYDROCODONE-ACETAMINOPHEN 5-325 MG ORAL TABLET 1 tab by mouth 8 hours as needed for pain HYDROCODONE-ACETAMINOPHEN 05303393188 No Longer Active Simon Castillo MD Active BUMETANIDE 0.5 MG ORAL TABLET 1 po qd BUMETANIDE 73260942634 Active Simon Castillo MD Active AUGMENTIN 875-125 MG ORAL TABLET 1 po BID x 10 days AMOXICILLIN-POT CLAVULANATE 06186044006 No Longer Active Simon Castillo MD Active PIOGLITAZONE HCL 30 MG ORAL TABLET 1 po qd PIOGLITAZONE HCL 64132839137 Active Simon Castillo MD Active GLIMEPIRIDE 4 MG ORAL TABLET 1 po BID GLIMEPIRIDE 83344882714 Active Simon Castillo MD Active ASPIRIN EC 81 MG ORAL TABLET DELAYED RELEASE 1 po qd ASPIRIN 37279769981 Active Simon Castillo MD Active CLOTRIMAZOLE 1 % EXTERNAL CREAM Apply to affected area of feet twice daily PRN Rash CLOTRIMAZOLE 31650719579 No Longer Active Simon Castillo MD Active PREDNISONE 5 MG ORAL TABLET 1 po BID PREDNISONE 95972760762 Active Dolly MCDERMOTT Active FISH OIL 1000 MG ORAL CAPSULE DELAYED RELEASE 1 po BID OMEGA- 3 FATTY ACIDS 22568680829 Active Simon Castillo MD Active LISINOPRIL 10 MG ORAL TABLET 1 p qd LISINOPRIL 00495759249 Active Simon Castillo MD Active CLARITIN 10 MG ORAL TABLET 1 tablet by mouth daily as needed for allergies LORATADINE 50788296078 No Longer Active Simon Castillo MD Active TRIAMCINOLONE ACETONIDE 0.1 % EXTERNAL OINTMENT Apply to affected areas TID for up to 2 weeks TRIAMCINOLONE ACETONIDE 18295010068 No Longer Active Simon Castillo MD Active LASIX 20 MG ORAL TABLET 1 tablet by mouth daily x 2 days FUROSEMIDE 09059537750 No Longer Active Simon Castillo MD Active SULFASALAZINE 500 MG ORAL TABLET DELAYED RELEASE 2 tabs BID 02/26 SULFASALAZINE 69296781228 No Longer Active Neto Oshea DO Active PREDNISONE 20 MG ORAL TABLET 2 tabs daily for 3 days, 1 tab daily for 3 days, 1/2 tab daily for 2 days PREDNISONE 81012157202 No Longer Active Jillina Fratico HEMPHILL Active PREDNISONE 20 MG ORAL TABLET 1 tablet daily for airway inflammation PREDNISONE 59605325389 No Longer Active 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 BUDGET SPECIALIST Active AZITHROMYCIN 250 MG ORAL TABLET 2 po qd x 1 day, then 1 po qd x 4 days 01/28 AZITHROMYCIN 31705926637 No Longer Active Jillina Fraamayal BUDGET SPECIALIST Active TRAMADOL HCL 50 MG ORAL TABLET 1 po q6hr PRN Pain TRAMADOL HCL 95651782619 No Longer Active Simon Castillo MD Active PREDNISONE 5 MG ORAL TABLET 1 po qod PREDNISONE 05977462413 No Longer Active Simon Castillo MD Active SYMBICORT 160-4.5 MCG/ACT INHALATION AEROSOL 2 puff BID BUDESONIDE-FORMOTEROL FUMARATE 88016363423 No Longer Active Simon Castillo MD Active FLONASE 50 MCG/ACT NASAL SUSPENSION 2 puffs in each nostril daily FLUTICASONE PROPIONATE 68238670776 No Longer Active Simon Castillo MD Active PREDNISONE 20 MG ORAL TABLET 2 tabs daily for 5 days, then 1 daily for 5 days PREDNISONE 52195083615 No Longer Active Simon Castillo MD Active PREDNISONE 20 MG ORAL TABLET 2 tabs daily for 5 days, then 1 daily for 5 days , then 0.5 for 4 days PREDNISONE 92073516697 No Longer Active Simon Castillo MD Active PREDNISONE 20 MG ORAL TABLET 2 tabs daily for 3 days, 1 tab daily for 3 days, 1/2 tab daily for 2 days PREDNISONE 27602436209 No Longer Active Simon Castillo MD Active AZITHROMYCIN 250 MG ORAL TABLET 2 po qd x 1 day, then 1 po qd x 4 days 03/16 AZITHROMYCIN 41863850237 No Longer Active Simon Castillo MD Active CARVEDILOL 6.25 MG ORAL TABLET 1 po BID CARVEDILOL 24426185563 Active Simon Castillo MD Active LISINOPRIL-HYDROCHLOROTHIAZIDE 20-12.5 MG ORAL TABLET 1/2 tab by mouth daily LISINOPRIL-HYDROCHLOROTHIAZIDE 54633482586 No Longer Active Simon Castillo MD Active PREDNISONE 5 MG ORAL TABLET Take one po qod PREDNISONE 51426593949 No Longer Active Simon Castillo MD Active GLYBURIDE 5 MG ORAL TABLET Take one by mouth daily GLYBURIDE 39290616028 No Longer Active Simon Castillo MD Active LEVAQUIN 750 MG ORAL TABLET 1 po qod x 5 doses LEVOFLOXACIN 92350869772 No Longer Active Simon Castillo MD Active CETIRIZINE HCL 10 MG ORAL TABLET 1 po qd as needed for allergies CETIRIZINE HCL 57060408432 No Longer Active Simon Castillo MD Active ATENOLOL 50 MG ORAL TABLET Take one by mouth daily ATENOLOL 40030604206 No Longer Active Simon Castillo MD Active FLONASE 50 MCG/ACT NASAL SUSPENSION 2 puffs in each nostril daily FLUTICASONE PROPIONATE 18116977233 No Longer Active Simon Castillo MD Active GLYBURIDE 5 MG ORAL TABLET Take one by mouth daily GLYBURIDE 32411486508 No Longer Active Simon Castillo MD Active SYMBICORT 80-4.5 MCG/ACT INHALATION AEROSOL 2 puffs twice a day BUDESONIDE-FORMOTEROL FUMARATE 36641446958 No Longer Active Simon Castillo MD Active PREDNISONE 20 MG ORAL TABLET 2 tabs daily for 4 days, 1 tab daily for 4 days, 1/2 tab daily for 4 days PREDNISONE 31832519463 No Longer Active Simon Castillo MD Active AMOXICILLIN 500 MG ORAL CAPSULE 2 po BID x 10 days AMOXICILLIN 97956686226 No Longer Active Simon Castillo MD Active METFORMIN HCL 1000 MG ORAL TABLET 1 by mounth twice a day METFORMIN HCL 42980306748 No Longer Active Simon Castillo MD Active IBUPROFEN 800 MG ORAL TABLET Take 1 tab every 6 hrs prn IBUPROFEN 41256899945 No Longer Active Simon Castillo MD Active GLYBURIDE 2.5 MG ORAL TABLET Take one by mouth daily GLYBURIDE 33910591928 No Longer Active Simon Castillo MD Active LANCETS 2 qd LANCETS 91814096056 Active Pamela Conde Active ACACIA CONTOUR TEST IN VITRO STRIP Use with testing twice daily GLUCOSE BLOOD 45798579800 Active Simon Castillo MD Active GLYBURIDE 2.5 MG ORAL TABLET Take one by mouth daily GLYBURIDE 2.5 MG ORAL TABLET 973259 GLYBURIDE Inactive PREDNISONE 20 MG ORAL TABLET 2 tabs daily for 4 days, 1 tab daily for 4 days, 1/2 tab daily for 4 days PREDNISONE 20 MG ORAL TABLET 088302 PREDNISONE Inactive SYMBICORT 80-4.5 MCG/ACT INHALATION AEROSOL 2 puffs twice a day SYMBICORT 80-4.5 MCG/ACT INHALATION AEROSOL BUDESONIDE- FORMOTEROL FUMARATE Inactive FLONASE 50 MCG/ACT NASAL SUSPENSION 2 puffs in each nostril daily FLONASE 50 MCG/ACT NASAL SUSPENSION 7735736 FLUTICASONE PROPIONATE Inactive ATENOLOL 50 MG ORAL TABLET Take one by mouth daily ATENOLOL 50 MG ORAL TABLET 755731 ATENOLOL Inactive CETIRIZINE HCL 10 MG ORAL TABLET 1 po qd as needed for allergies CETIRIZINE HCL 10 MG ORAL TABLET 7962142 CETIRIZINE HCL Inactive LEVAQUIN 750 MG ORAL TABLET 1 po qod x 5 doses LEVAQUIN 750 MG ORAL TABLET 510452 LEVOFLOXACIN Inactive GLYBURIDE 5 MG ORAL TABLET Take one by mouth daily GLYBURIDE 5 MG ORAL TABLET 824190 GLYBURIDE Inactive PREDNISONE 5 MG ORAL TABLET Take one po qod PREDNISONE 5 MG ORAL TABLET 614121 PREDNISONE Inactive PREDNISONE 20 MG ORAL TABLET 2 tabs daily for 5 days, then 1 daily for 5 days PREDNISONE 20 MG ORAL TABLET 236840 PREDNISONE Inactive FLONASE 50 MCG/ACT NASAL SUSPENSION 2 puffs in each nostril daily FLONASE 50 MCG/ACT NASAL SUSPENSION 8094976 FLUTICASONE PROPIONATE Inactive SYMBICORT 160-4.5 MCG/ACT INHALATION AEROSOL 2 puff BID SYMBICORT 160-4.5 MCG/ACT INHALATION AEROSOL BUDESONIDE-FORMOTEROL FUMARATE Inactive PREDNISONE 5 MG ORAL TABLET 1 po qod PREDNISONE 5 MG ORAL TABLET 758697 PREDNISONE Inactive PREDNISONE 20 MG ORAL TABLET 1 tablet daily for airway inflammation PREDNISONE 20 MG ORAL TABLET 043740 PREDNISONE Inactive SULFASALAZINE 500 MG ORAL TABLET DELAYED RELEASE 2 tabs BID 02/26 SULFASALAZINE 500 MG ORAL TABLET DELAYED RELEASE 239356 SULFASALAZINE Inactive LASIX 20 MG ORAL TABLET 1 tablet by mouth daily x 2 days LASIX 20 MG ORAL TABLET 168192 FUROSEMIDE Inactive CLARITIN 10 MG ORAL TABLET 1 tablet by mouth daily as needed for allergies CLARITIN 10 MG ORAL TABLET 820750 LORATADINE Inactive CLOTRIMAZOLE 1 % EXTERNAL CREAM Apply to affected area of feet twice daily PRN Rash CLOTRIMAZOLE 1 % EXTERNAL CREAM 286880 CLOTRIMAZOLE Inactive HYDROCODONE-ACETAMINOPHEN 5-325 MG ORAL TABLET 1 tab by mouth 8 hours as needed for pain HYDROCODONE-ACETAMINOPHEN 5-325 MG ORAL TABLET 259113 HYDROCODONE-ACETAMINOPHEN Inactive TRAMADOL HCL 50 MG ORAL TABLET 1-2 tablets every 6 hours as needed for pain TRAMADOL HCL 50 MG ORAL TABLET 698885 TRAMADOL HCL Inactive PROMETHAZINE-CODEINE 6.25-10 MG/5ML ORAL SYRUP 5ml po qHS PRN Cough PROMETHAZINE-CODEINE 6.25-10 MG/5ML ORAL SYRUP 444703 PROMETHAZINE-CODEINE Inactive AZITHROMYCIN 250 MG ORAL TABLET 2 po qd x 1, then 1 po qd x 4 AZITHROMYCIN 250 MG ORAL TABLET 579396 AZITHROMYCIN Inactive AMOXICILLIN 500 MG ORAL CAPSULE 2 po BID x 10 days AMOXICILLIN 500 MG ORAL CAPSULE 268199 AMOXICILLIN Inactive GLYBURIDE 5 MG ORAL TABLET Take one by mouth daily GLYBURIDE 5 MG ORAL TABLET 659495 GLYBURIDE Inactive AZITHROMYCIN 250 MG ORAL TABLET 2 po qd x 1 day, then 1 po qd x 4 days 03/16 AZITHROMYCIN 250 MG ORAL TABLET 968196 AZITHROMYCIN Inactive PREDNISONE 20 MG ORAL TABLET 2 tabs daily for 3 days, 1 tab daily for 3 days, 1/2 tab daily for 2 days PREDNISONE 20 MG ORAL TABLET 773416 PREDNISONE Inactive PREDNISONE 20 MG ORAL TABLET 2 tabs daily for 5 days, then 1 daily for 5 days , then 0.5 for 4 days PREDNISONE 20 MG ORAL TABLET 638570 PREDNISONE Inactive AZITHROMYCIN 250 MG ORAL TABLET 2 po qd x 1 day, then 1 po qd x 4 days 01/28 AZITHROMYCIN 250 MG ORAL TABLET 074481 AZITHROMYCIN Inactive PREDNISONE 20 MG ORAL TABLET 2 tabs daily for 3 days, 1 tab daily for 3 days, 1/2 tab daily for 2 days PREDNISONE 20 MG ORAL TABLET 646298 PREDNISONE Inactive TRIAMCINOLONE ACETONIDE 0.1 % EXTERNAL OINTMENT Apply to affected areas TID for up to 2 weeks TRIAMCINOLONE ACETONIDE 0.1 % EXTERNAL OINTMENT 9291432 TRIAMCINOLONE ACETONIDE Inactive AUGMENTIN 875-125 MG ORAL TABLET 1 po BID x 10 days AUGMENTIN 875-125 MG ORAL TABLET 739845 AMOXICILLIN-POT CLAVULANATE Inactive PREDNISONE 20 MG ORAL TABLET 2 po qd x 5 days PREDNISONE 20 MG ORAL TABLET 108915 PREDNISONE Inactive Immunizations Vaccine Administration Date Value [...] Peptide - Chemistry sodium, serum 142 mmol/L 389-336 1844/07/18 potassium, serum 5.0 mmol/L 3.5-5.2 chloride, serum [...] Rate - Chemistry sodium, serum 142 mmol/L 445-978 6168/02/27 carbon dioxide, venous blood 26.2 mmol/L 21.0-32.0 [...] Panel - Chemistry sodium, serum 140 mmol/L 713-233 9750/07/13 carbon dioxide, venous blood 23.7 mmol/L 21.0-32.0 [...] dipstick Negative Negative sodium, serum 142 mmol/L 825-571 0010/01/08 carbon dioxide, venous blood 23.9 mmol/L 21.0-32.0 [...] Negative;Positive Encounters Code Encounter Date Provider Facility CPT-31699 Level 4 Est. Patient 11:32:07 CDT Simon Castillo MD [facility] CPT-34467 Level 3 Est. Patient 11:36:15 CDT Simon Castillo MD [facility] CPT-95856 Level 4 Est. Patient 14:06:23 TUBE WINDER HAND Simon Castillo MD [facility] CPT-41924 Level 3 Est. Patient 12:04:38 TUBE W[employer]ER HAND Giles Tatum [facility] CPT-82258 Level 3 Est. Patient 11:57:09 TUBE W[employer]ER HAND Giles Tatum [facility] CPT-03472 Level 3 Est. Patient 11:48:57 TUBE W[employer]ER HAND Giles Tatum [facility] CPT-48227 Level 4 Est. Patient 09:54:36 CDT Simon Castillo MD [facility] CPT-76611 Level 4 Est. Patient 08:48:38 CDT Simon Castillo MD [facility] CPT-13484 Level 4 Est. Patient 09:54:08 CDT Simon Castillo MD [facility] CPT-35307 Level 4 Est. Patient 16:11:23 CDT Simon Castillo MD [facility] CPT-49976 Level 4 Est. Patient 09:29:28 TUBE W[employer] HAND Simon Castillo MD [facility] CPT-76517 Level 3 Est. Patient 09:18:25 CDT Simon Castillo MD [facility] CPT-53597 Level 4 Est. Patient 11:51:23 CDT Simon Castillo MD [facility] CPT-61725 Level 4 Est. Patient 14:32:04 CDT Neto Oshea DO [facility] CPT-00490 Level 3 Est. Patient 08:41:43 CDT Giles Salcidol [facility] CPT-13459 Level 3 Est. Patient 08:40:53 CDT 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 [facility] CPT-92543 Level 3 Est. Patient 08:36:52 CDT 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 [facility] CPT-50898 Level 3 Est. Patient 09:08:44 CDT Giles Nashamayal [facility] CPT-49989 Level 4 Est. Patient 09:17:32 TUBE W[employer] Simon Castillo MD [facility] CPT-42122 Level 3 Est. Patient 11:22:22 TUBE WINDER HAND Simon Castillo MD [facility] CPT-75977 Level 3 Est. Patient 09:02:14 CDT Simon Castillo MD [facility] CPT-94836 Level 4 Est. Patient 08:47:25 CDT Simon Castillo MD [facility] CPT-83539 Level 4 Est. Patient 10:17:25 CDT Simon Castillo MD [facility] CPT-54430 Level 4 Est. Patient 10:10:09 TUBE WINDER HAND Simon Castillo MD [facility] CPT-27002 Level 4 Est. Patient 11:48:19 CDT Simon Castillo MD [facility] CPT-77601 Level 4 Est. Patient 08:59:29 CDT Simon Castillo MD [facility] CPT-12173 Level 4 Est. Patient 10:52:51 TUBE W[employer]ER HAND Simon Castillo MD [facility] CPT-38520 Level 4 Est. Patient 11:50:30 CDT Simon Castillo MD [facility] CPT-41807 Level 4 Est. Patient 09:54:46 CDT Simon Castillo MD [facility] CPT-11765 Level 3 Est. Patient 11:10:14 CDT Simon Castillo MD [facility] CPT-76396 Level 4 Est. Patient 09:44:02 CDT Simon Castillo MD [facility] CPT-15362 Level 3 Est. Patient 09:27:48 CDT Simon Castillo MD [facility] CPT-02216 Level 3 Est. Patient 09:58:06 TUBE WINDER HAND Simon Castillo MD [facility] CPT-95164 Level 3 Est. Patient 09:51:35 CDT Simon Castillo MD [facility] Procedures Code Procedure Name Date Entry Date Standard Description CPT-41885 EKG Trac and Interp - XRAY USE ONLY 11:41:45 CDT 02/23 CPT-12365 Chest, 2 views 11:41:45 CDT CPT-61989 EKG Trac and Interp - XRAY USE ONLY 12:19:18 TUBE W[employer]ER HAND 09/29 CPT-48112 Chest, 2 views 12:19:17 TUBE W[employer]ER HAND CPT-Cryo Cryotherapy 09:54:37 CDT CPT-11496 First Vx - Ix admin for Medicare patients 09:13:10 CDT CPT-12974 Fluzone High-Dose Intramuscular Suspension 09:13:10 CDT CPT-G0439 Subsequent Annual Wellness Exam 09:41:17 CDT CPT-38997 Lipid - LAB USE ONLY 17:15:33 CDT CPT-83732 HGBA1C - LAB USE ONLY 17:15:33 CDT CPT-88671 CMP - LAB USE ONLY 17:15:33 CDT CPT-60316 Venipuncture Draw Fee 17:15:33 CDT [facility] Transitional Care Mgmt-High 11:01:28 TUBE WINDER HAND CPT-52806 First Vx - Ix admin for Medicare patients 17:33:39 CDT CPT-69163 Fluzone High-Dose Intramuscular Suspension 17:33:39 CDT CPT-G0438 Initial Annual Wellness Exam 08:57:30 CDT CPT-08121 Chest 2V Frontal and Lat - XRAY USE ONLY 09:00:14 CDT CPT-15923 Venipuncture Draw Fee 13:33:02 CDT CPT-16140 Bone Density 09:37:49 TUBE W[employer]ER HAND CPT-89635 Fluzone High Dose 17:20:42 CDT CPT-01006 Prevnar 13 17:20:42 CDT CPT-27448 Administration 2+ single or combination vaccines inc oral 17:20:42 CDT CPT-16762 Administration single or combination vaccine inc oral 17 :20:42 CDT CPT-33671 Hand comp min 3V 09:24:38 CDT CPT-41332 Venipuncture Draw Fee 08:07:29 TUBE W[employer]ER [employer] CPT-76082 Venipuncture Draw Fee 09:02:51 TUBE W[employer] CPT-36299 Venipuncture Draw Fee 12:45:08 TUBE W[employer]ER [employer] CPT-71353 Venipuncture Draw Fee 09:25:31 CDT CPT-G0008 Administration of Influenza Virus Vaccine 14:41:29 CDT CPT-93061 Fluzone High-Dose Intramuscular Suspension 14:41:29 CDT CPT-Cryo Cryotherapy 11:48:20 CDT CPT-04794 EKG Trac and Interp 09:21:58 CDT CPT-59390 Chest 2V Frontal and Lat 09:21:58 CDT CPT-Cryo Cryotherapy 10:54:51 TUBE W[employer]ER [employer] CPT-33984 Administration 2+ single or combination vaccines inc oral 10:42:19 CDT CPT-64348 Administration single or combination vaccine inc oral 10 :42:19 CDT CPT-03279 Pneumovax 10:42:19 CDT CPT-29961 Influenza High Dose age 65+ 10:42:19 CDT CPT-57239 Administration single or combination vaccine inc oral 13 :18:54 CDT CPT-61852 Influenza High Dose age 65+ 13:18:54 CDT CPT-43868 Venipuncture Draw Fee 11:53:16 CDT CPT-04859 LS spine comp w obliq 11:03:13 CDT CPT-Cryo Cryotherapy 08:27:16 TUBE W[employer]ER [employer] CPT-30773 Administration single or combination vaccine inc oral 10 :56:34 CDT CPT-09895 Influenza High Dose age 65+ 10:56:34 CDT
[2018-03-31 16:44] LABS: GLUCOSE 427 MG/DL (70-105)
--- OUTSIDE RECORDS SUMMARY | 2018-03-31 16:44 | XMS REPORT | Clinical Summary ---
Author Author Admin, RAFFI Salazar 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 GLIMEPIRIDE 50304327961 Active Simon Castillo MD Active HYDROCODONE-ACETAMINOPHEN 5-325 MG TABS 1 tab by mouth 8 hours as needed for pain HYDROCODONE-ACETAMINOPHEN 56459165846 Active Simon Castillo MD Active TRAMADOL HCL 50 MG TABS 1 po q6hr PRN Pain TRAMADOL HCL 69901065289 No Longer Active Simon Castillo MD Active PREDNISONE 5 MG TAB 1-2 tabs daily for rheumatoid arthritis PREDNISONE 89770386852 Active Simon Castillo MD Active PREDNISONE 5 MG TABS 1 po qod PREDNISONE 01629625728 No Longer Active Simon Castillo MD Active SYMBICORT 160-4.5 MCG/ACT AERO 2 puff BID BUDESONIDE- FORMOTEROL FUMARATE 08296658565 No Longer Active Simon Castillo MD Active FLONASE 50 MCG/ACT SUSP 2 puffs in each nostril daily FLUTICASONE PROPIONATE 54158749033 No Longer Active Simon Castillo MD Active PREDNISONE 20 MG TAB 2 tabs daily for 5 days, then 1 daily for 5 days PREDNISONE 56942418590 No Longer Active Simon Castillo MD Active PREDNISONE 20 MG TAB 2 tabs daily for 5 days, then 1 daily for 5 days, then 0.5 for 4 days PREDNISONE 29036478554 No Longer Active Simon Castillo MD Active CLOTRIMAZOLE 1 % EXT CREA Apply to affected area of feet twice daily PRN Rash CLOTRIMAZOLE 84344067092 Active Simon Castillo MD Active PREDNISONE 20 MG TAB 2 tabs daily for 3 days, 1 tab daily for 3 days, 1/2 tab daily for 2 days PREDNISONE 89624849987 No Longer Active Simon Castillo MD Active AZITHROMYCIN 250 MG TABS 2 po qd x 1 day, then 1 po qd x 4 days AZITHROMYCIN 53026723796 No Longer Active Simon Castillo MD Active LISINOPRIL 10 MG TABS 1 tablet by mouth daily LISINOPRIL 77127146247 Active Simon Castillo MD Active CARVEDILOL 6.25 MG TABS 1 po BID CARVEDILOL 52563149342 Active Simon Castillo MD Active LISINOPRIL-HYDROCHLOROTHIAZIDE 20-12.5 MG TABS 1/2 tab by mouth daily LISINOPRIL-HYDROCHLOROTHIAZIDE 32729124861 No Longer Active Simon Castillo MD Active TRAMADOL HCL 50 MG TABS 1-2 tablets every 6 hours as needed for pain TRAMADOL HCL 04315061937 Active Simon Castillo MD Active PREDNISONE 5 MG TAB Take one po qod PREDNISONE 90199297441 No Longer Active Simon Castillo MD Active GLYBURIDE 5 MG TAB Take one by mouth daily GLYBURIDE 50791396003 No Longer Active Simon Castillo MD Active LEVAQUIN 750 MG TABS 1 po qod x 5 doses LEVOFLOXACIN 38514188511 No Longer Active Simon Castillo MD Active CETIRIZINE HCL 10 MG TABS 1 po qd as needed for allergies CETIRIZINE HCL 43047003847 No Longer Active Simon Castillo MD Active FISH OIL 1000 MG CPDR 1 pill by mouth twice daily for cholesterol OMEGA -3 FATTY ACIDS 33258908641 Active Simon Castillo MD Active BILBERRY CAPS 1 tab daily BILBERRY (VACCINIUM MYRTILLUS) CAPS 52790321009 Active Simon Castillo MD Active ATENOLOL 50 MG TABS Take one by mouth daily ATENOLOL 93878066663 No Longer Active Simon Castillo MD Active FLONASE 50 MCG/ACT SUSP 2 puffs in each nostril daily FLUTICASONE PROPIONATE 32179645679 No Longer Active Simon Castillo MD Active GLYBURIDE 5 MG TAB Take one by mouth daily GLYBURIDE 10052533011 No Longer Active Simon Castillo MD Active SYMBICORT 80-4.5 MCG/ACT AERO 2 puffs twice a day BUDESONIDE-FORMOTEROL FUMARATE 23941437551 No Longer Active Simon Castillo MD Active PREDNISONE 20 MG TAB 2 tabs daily for 4 days, 1 tab daily for 4 days, 1/2 tab daily for 4 days PREDNISONE 95338011195 No Longer Active Simon Castillo MD Active AMOXICILLIN 500 MG CAPS 2 po BID x 10 days AMOXICILLIN 13870789227 No Longer Active Simon Castillo MD Active METFORMIN HCL 1000 MG TABS 1 by mounth twice a day METFORMIN HCL 70842966631 No Longer Active Simon Castillo MD Active LUTEIN-ZEAXANTHIN 6-1 MG TABS Take 2 by mouth daily LUTEIN-ZEAXANTHIN 11016984121 Active Simon Castillo MD Active IBUPROFEN 800 MG TABS Take 1 tab every 6 hrs prn IBUPROFEN 20107920534 No Longer Active Simon Castillo MD Active GLYBURIDE 2.5 MG TABS Take one by mouth daily GLYBURIDE 67854924768 No Longer Active Simon Castillo MD Active LANCETS MISC 2 qd LANCETS 88129467186 Active Pamela Conde Active ACACIA CONTOUR TEST STRP Use with testing twice daily GLUCOSE BLOOD 20723481152 Active Simon Castillo MD Active ACACIA ASPIRIN 325 MG TABS Take one by mouth daily ASPIRIN 33244789077 Active Pamela Conde Active GLYBURIDE 2.5 MG TABS Take one by mouth daily GLYBURIDE 2.5 MG TABS 642862 GLYBURIDE Inactive PREDNISONE 20 MG TAB 2 tabs daily for 4 days, 1 tab daily for 4 days, 1/2 tab daily for 4 days PREDNISONE 20 MG TAB 814919 PREDNISONE Inactive SYMBICORT 80-4.5 MCG/ACT AERO 2 puffs twice a day SYMBICORT 80-4.5 MCG/ACT AERO BUDESONIDE-FORMOTEROL FUMARATE Inactive FLONASE 50 MCG/ACT SUSP 2 puffs in each nostril daily FLONASE 50 MCG/ACT SUSP FLUTICASONE PROPIONATE Inactive ATENOLOL 50 MG TABS Take one by mouth daily ATENOLOL 50 MG TABS 936838 ATENOLOL Inactive CETIRIZINE HCL 10 MG TABS 1 po qd as needed for allergies CETIRIZINE HCL 10 MG TABS 9756485 CETIRIZINE HCL Inactive LEVAQUIN 750 MG TABS 1 po qod x 5 doses LEVAQUIN 750 MG TABS 866492 LEVOFLOXACIN Inactive GLYBURIDE 5 MG TAB Take one by mouth daily GLYBURIDE 5 MG TAB 981595 GLYBURIDE Inactive PREDNISONE 5 MG TAB Take one po qod PREDNISONE 5 MG TAB 358999 PREDNISONE Inactive PREDNISONE 20 MG TAB 2 tabs daily for 5 days, then 1 daily for 5 days PREDNISONE 20 MG TAB 230099 PREDNISONE Inactive FLONASE 50 MCG/ACT SUSP 2 puffs in each nostril daily FLONASE 50 MCG/ACT SUSP FLUTICASONE PROPIONATE Inactive SYMBICORT 160-4.5 MCG/ACT AERO 2 puff BID SYMBICORT 160-4.5 MCG/ACT AERO BUDESONIDE-FORMOTEROL FUMARATE Inactive PREDNISONE 5 MG TABS 1 po qod PREDNISONE 5 MG TABS 128589 PREDNISONE Inactive AMOXICILLIN 500 MG CAPS 2 po BID x 10 days AMOXICILLIN 500 MG CAPS 226607 AMOXICILLIN Inactive GLYBURIDE 5 MG TAB Take one by mouth daily GLYBURIDE 5 MG TAB 035381 GLYBURIDE Inactive AZITHROMYCIN 250 MG TABS 2 po qd x 1 day, then 1 po qd x 4 days AZITHROMYCIN 250 MG TABS 8939298 AZITHROMYCIN Inactive PREDNISONE 20 MG TAB 2 tabs daily for 3 days, 1 tab daily for 3 days, 1/2 tab daily for 2 days PREDNISONE 20 MG TAB 111915 PREDNISONE Inactive PREDNISONE 20 MG TAB 2 tabs daily for 5 days, then 1 daily for 5 days, then 0.5 for 4 days PREDNISONE 20 MG TAB 769275 PREDNISONE Inactive Immunizations Vaccine Administration Date Value [...] Panel - Chemistry sodium, serum 132 mmol/L 092-226 0789/10/26 carbon dioxide, venous blood 22.8 mmol/L 21.0-32.0 [...] Rate - Chemistry sodium, serum 136 mmol/L 487-288 7147/09/18 carbon dioxide, venous blood 24.3 mmol/L 21.0-32.0 [...] HGBA1C - Chemistry sodium, serum 139 mmol/L 402-740 8989/07/09 potassium, serum 5.4 mmol/L 3.5-5.2 chloride, serum [...] 8.5 % 4.3-6.0 sodium, serum 137 mmol/L 628-899 7978/02/12 potassium, serum 5.1 mmol/L 3.5-5.2 chloride, serum 103 mmol/L 98-107 carbon dioxide, venous blood 24.4 mmol/L 21.0-32.0 blood glucose 261 mg/dL 65-110 calcium, serum 9.0 mg/dL 8.5-10.1 urea nitrogen, blood 44 mg/dL 7-18 creatinine, serum 2.37 mg/dL 0.55-1.30 Lab Report: Lipid Panel - Chemistry cholesterol, serum 139 mg/dL 882-325 6215/09/10 triglyceride, serum, fasting 176 mg/dL 30-200 HDL cholesterol, serum 45 mg/dL 32-96 LDL cholesterol, serum 59 mg/dL 0-130 Lab Report: MICROALBUMIN - Chemistry albumin/creatinine ratio, urine 30 - 300 mg/g mg/g{creat} 0-29 Lab Report: MICROALBUMIN - Lab microalbumin, urine 30 0-19 Lab Report: Prostatic Specific Ag - Chemistry prostate specific antigen 1.52 ng/mL 0.00-4.00 Encounters Code Encounter Date Provider Facility CPT-33892 Level 4 Est. Patient 09:17:32 LOG INSPECTOR Simon Castillo MD [facility] CPT-71977 Level 3 Est. Patient 11:22:22 LOG INSPECTOR Simon Castillo MD [facility] CPT-52733 Level 3 Est. Patient 09:02:14 CDT Simon Castillo MD [facility] CPT-30661 Level 4 Est. Patient 08:47:25 CDT Simon Castillo MD [facility] CPT-57329 Level 4 Est. Patient 10:17:25 CDT Simon Castillo MD [facility] CPT-15131 Level 4 Est. Patient 10:10:09 LOG INSPECTOR Simon Castillo MD [facility] CPT-08668 Level 4 Est. Patient 11:48:19 CDT Simon Castillo MD [facility] CPT-52628 Level 4 Est. Patient 08:59:29 CDT Simon Castillo MD [facility] CPT-87430 Level 4 Est. Patient 10:52:51 LOG INSPECTOR Simon Castillo MD [facility] CPT-89502 Level 4 Est. Patient 11:50:30 CDT Simon Castillo MD [facility] CPT-03473 Level 4 Est. Patient 09:54:46 CDT Simon Castillo MD [facility] CPT-50071 Level 3 Est. Patient 11:10:14 CDT Simon Castillo MD [facility] CPT-37248 Level 4 Est. Patient 09:44:02 CDT Simon Castillo MD [facility] CPT-13893 Level 3 Est. Patient 09:27:48 CDT Simon Castlilo MD [facility] CPT-49293 Level 3 Est. Patient 09:58:06 LOG INSPECTOR Simon Castillo MD [facility] CPT-29688 Level 3 Est. Patient 09:51:35 CDT Simon Castillo MD [facility] Procedures Code Procedure Name Date Entry Date Standard Description CPT-30508 Bone Density 09:37:49 LOG INSPECTOR CPT-88883 Fluzone High Dose 17:20:42 CDT CPT-47137 Prevnar 13 17:20:42 CDT CPT-57169 Administration 2+ single or combination vaccines inc oral 17:20:42 CDT CPT-36043 Administration single or combination vaccine inc oral 17 :20:42 CDT CPT-10004 Hand comp min 3V 09:24:38 CDT CPT-93297 Venipuncture Draw Fee 08:07:29 LOG INSPECTOR CPT-85843 Venipuncture Draw Fee 09:02:51 LOG INSPECTOR CPT-56624 Venipuncture Draw Fee 12:45:08 LOG INSPECTOR CPT-91826 Venipuncture Draw Fee 09:25:31 CDT CPT-G0008 Administration of Influenza Virus Vaccine 14:41:29 CDT CPT-81477 Fluzone High-Dose Intramuscular Suspension 14:41:29 CDT CPT-Cryo Cryotherapy 11:48:20 CDT CPT-86654 EKG Trac and Interp 09:21:58 CDT CPT-83314 Chest 2V Frontal and Lat 09:21:58 CDT CPT-Cryo Cryotherapy 10:54:51 LOG INSPECTOR CPT-25068 Administration 2+ single or combination vaccines inc oral 10:42:19 CDT CPT-26769 Administration single or combination vaccine inc oral 10 :42:19 CDT CPT-44275 Pneumovax 10:42:19 CDT CPT-36808 Influenza High Dose age 65+ 10:42:19 CDT CPT-02721 Administration single or combination vaccine inc oral 13 :18:54 CDT CPT-96739 Influenza High Dose age 65+ 13:18:54 CDT CPT-50987 Venipuncture Draw Fee 11:53:16 CDT CPT-17375 LS spine comp w obliq 11:03:13 CDT CPT-Cryo Cryotherapy 08:27:16 LOG INSPECTOR CPT-77054 Administration single or combination vaccine inc oral 10 :56:34 CDT CPT-66536 Influenza High Dose age 65+ 10:56:34 CDT
--- OUTSIDE RECORDS SUMMARY | 2018-03-31 16:45 | XMS REPORT | Clinical Summary ---
Author Author Admin, RAFFI Salazar [facility] Address Unknown Phone Unavailable Allergies, [...] Simon Castillo MD Rheumatoid arthritis Steroid use, snf V58.65 Resolved Simon Castillo MD Long-term (current) [...] ABDOMINAL PAIN RIGHT LOWER QUADRANT ICD-789.03 Inactive iSmon Castillo MD SCIATICA ICD-724.3 Inactive Simon Castillo MD 2012 Obesity ICD-278.00 Inactive Simon Castillo MD 2013 Chest pain ICD-786.50 Inactive Simon Castillo MD Cough ICD-786.2 Inactive Simon Castillo MD Bronchitis, acute ICD-466.0 Inactive Simon Castillo MD Hand pain, bilateral ICD-729.5 Inactive Simon Catsillo MD BENIGN PROSTATIC HYPERTROPHY, MILD, HX OF ICD-V13.89 Inactive Simon Castillo MD Tinea pedis ICD-110.4 Inactive Simon Castillo MD 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 GLIMEPIRIDE 20620254547 Active Simon Castillo MD Active HYDROCODONE-ACETAMINOPHEN 5-325 MG TABS 1 tab by mouth 8 hours as needed for pain HYDROCODONE-ACETAMINOPHEN 30774421509 Active Simon Castillo MD Active TRAMADOL HCL 50 MG TABS 1 po q6hr PRN Pain TRAMADOL HCL 58872523677 No Longer Active Simon Castillo MD Active PREDNISONE 5 MG TAB 1-2 tabs daily for rheumatoid arthritis PREDNISONE 66586463307 Active Simon Castillo MD Active PREDNISONE 5 MG TABS 1 po qod PREDNISONE 34813969545 No Longer Active Simon Castillo MD Active SYMBICORT 160-4.5 MCG/ACT AERO 2 puff BID BUDESONIDE- FORMOTEROL FUMARATE 94585514279 No Longer Active Simon Castillo MD Active FLONASE 50 MCG/ACT SUSP 2 puffs in each nostril daily FLUTICASONE PROPIONATE 23005970882 No Longer Active Simon Castillo MD Active PREDNISONE 20 MG TAB 2 tabs daily for 5 days, then 1 daily for 5 days PREDNISONE 95517314665 No Longer Active Simon Castillo MD Active PREDNISONE 20 MG TAB 2 tabs daily for 5 days, then 1 daily for 5 days, then 0.5 for 4 days PREDNISONE 77229730987 No Longer Active Simon Castillo MD Active CLOTRIMAZOLE 1 % EXT CREA Apply to affected area of feet twice daily PRN Rash CLOTRIMAZOLE 11503899409 Active Simon Castillo MD Active PREDNISONE 20 MG TAB 2 tabs daily for 3 days, 1 tab daily for 3 days, 1/2 tab daily for 2 days PREDNISONE 21974607501 No Longer Active Simon Castillo MD Active AZITHROMYCIN 250 MG TABS 2 po qd x 1 day, then 1 po qd x 4 days AZITHROMYCIN 64852311421 No Longer Active Simon Castillo MD Active LISINOPRIL 10 MG TABS 1 tablet by mouth daily LISINOPRIL 51421163081 Active Simon Castillo MD Active CARVEDILOL 6.25 MG TABS 1 po BID CARVEDILOL 79662210896 Active Simon Castillo MD Active LISINOPRIL-HYDROCHLOROTHIAZIDE 20-12.5 MG TABS 1/2 tab by mouth daily LISINOPRIL-HYDROCHLOROTHIAZIDE 24762583538 No Longer Active Simon Castillo MD Active TRAMADOL HCL 50 MG TABS 1-2 tablets every 6 hours as needed for pain TRAMADOL HCL 96984784263 Active Simon Castillo MD Active PREDNISONE 5 MG TAB Take one po qod PREDNISONE 76274345870 No Longer Active Simon Castillo MD Active GLYBURIDE 5 MG TAB Take one by mouth daily GLYBURIDE 34468264381 No Longer Active Simon Castillo MD Active LEVAQUIN 750 MG TABS 1 po qod x 5 doses LEVOFLOXACIN 01899009701 No Longer Active Simon Castillo MD Active CETIRIZINE HCL 10 MG TABS 1 po qd as needed for allergies CETIRIZINE HCL 36683239218 No Longer Active Simon Castillo MD Active FISH OIL 1000 MG CPDR 1 pill by mouth twice daily for cholesterol OMEGA -3 FATTY ACIDS 47297304439 Active Simon Castillo MD Active BILBERRY CAPS 1 tab daily BILBERRY (VACCINIUM MYRTILLUS) CAPS 86297009946 Active Simon Castillo MD Active ATENOLOL 50 MG TABS Take one by mouth daily ATENOLOL 15377443755 No Longer Active Simon Castillo MD Active FLONASE 50 MCG/ACT SUSP 2 puffs in each nostril daily FLUTICASONE PROPIONATE 82791070493 No Longer Active Simon Castillo MD Active GLYBURIDE 5 MG TAB Take one by mouth daily GLYBURIDE 24936053994 No Longer Active Simon Castillo MD Active SYMBICORT 80-4.5 MCG/ACT AERO 2 puffs twice a day BUDESONIDE-FORMOTEROL FUMARATE 43828925269 No Longer Active Simon Castillo MD Active PREDNISONE 20 MG TAB 2 tabs daily for 4 days, 1 tab daily for 4 days, 1/2 tab daily for 4 days PREDNISONE 95191234069 No Longer Active Simon Castillo MD Active AMOXICILLIN 500 MG CAPS 2 po BID x 10 days AMOXICILLIN 75623784838 No Longer Active Simon Castillo MD Active METFORMIN HCL 1000 MG TABS 1 by mounth twice a day METFORMIN HCL 48971848794 No Longer Active Simon Castillo MD Active LUTEIN-ZEAXANTHIN 6-1 MG TABS Take 2 by mouth daily LUTEIN-ZEAXANTHIN 94623776973 Active Simon Castillo MD Active IBUPROFEN 800 MG TABS Take 1 tab every 6 hrs prn IBUPROFEN 11885994471 No Longer Active Simon Castillo MD Active GLYBURIDE 2.5 MG TABS Take one by mouth daily GLYBURIDE 75349337258 No Longer Active Simon Castillo MD Active LANCETS MISC 2 qd LANCETS 09590480889 Active Pamela Conde Active ACACIA CONTOUR TEST STRP Use with testing twice daily GLUCOSE BLOOD 17651287113 Active Simon Castillo MD Active ACACIA ASPIRIN 325 MG TABS Take one by mouth daily ASPIRIN 55081845017 Active Pamela Conde Active GLYBURIDE 2.5 MG TABS Take one by mouth daily GLYBURIDE 2.5 MG TABS 820340 GLYBURIDE Inactive PREDNISONE 20 MG TAB 2 tabs daily for 4 days, 1 tab daily for 4 days, 1/2 tab daily for 4 days PREDNISONE 20 MG TAB 044756 PREDNISONE Inactive SYMBICORT 80-4.5 MCG/ACT AERO 2 puffs twice a day SYMBICORT 80-4.5 MCG/ACT AERO BUDESONIDE-FORMOTEROL FUMARATE Inactive FLONASE 50 MCG/ACT SUSP 2 puffs in each nostril daily FLONASE 50 MCG/ACT SUSP FLUTICASONE PROPIONATE Inactive ATENOLOL 50 MG TABS Take one by mouth daily ATENOLOL 50 MG TABS 413701 ATENOLOL Inactive CETIRIZINE HCL 10 MG TABS 1 po qd as needed for allergies CETIRIZINE HCL 10 MG TABS 3662048 CETIRIZINE HCL Inactive LEVAQUIN 750 MG TABS 1 po qod x 5 doses LEVAQUIN 750 MG TABS 823735 LEVOFLOXACIN Inactive GLYBURIDE 5 MG TAB Take one by mouth daily GLYBURIDE 5 MG TAB 726913 GLYBURIDE Inactive PREDNISONE 5 MG TAB Take one po qod PREDNISONE 5 MG TAB 872092 PREDNISONE Inactive PREDNISONE 20 MG TAB 2 tabs daily for 5 days, then 1 daily for 5 days PREDNISONE 20 MG TAB 617123 PREDNISONE Inactive FLONASE 50 MCG/ACT SUSP 2 puffs in each nostril daily FLONASE 50 MCG/ACT SUSP FLUTICASONE PROPIONATE Inactive SYMBICORT 160-4.5 MCG/ACT AERO 2 puff BID SYMBICORT 160-4.5 MCG/ACT AERO BUDESONIDE-FORMOTEROL FUMARATE Inactive PREDNISONE 5 MG TABS 1 po qod PREDNISONE 5 MG TABS 279319 PREDNISONE Inactive AMOXICILLIN 500 MG CAPS 2 po BID x 10 days AMOXICILLIN 500 MG CAPS 195644 AMOXICILLIN Inactive GLYBURIDE 5 MG TAB Take one by mouth daily GLYBURIDE 5 MG TAB 447317 GLYBURIDE Inactive AZITHROMYCIN 250 MG TABS 2 po qd x 1 day, then 1 po qd x 4 days AZITHROMYCIN 250 MG TABS 6295450 AZITHROMYCIN Inactive PREDNISONE 20 MG TAB 2 tabs daily for 3 days, 1 tab daily for 3 days, 1/2 tab daily for 2 days PREDNISONE 20 MG TAB 762887 PREDNISONE Inactive PREDNISONE 20 MG TAB 2 tabs daily for 5 days, then 1 daily for 5 days, then 0.5 for 4 days PREDNISONE 20 MG TAB 847419 PREDNISONE Inactive Immunizations Vaccine Administration Date Value [...] Panel - Chemistry sodium, serum 132 mmol/L 385-130 1579/10/26 carbon dioxide, venous blood 22.8 mmol/L 21.0-32.0 [...] Rate - Chemistry sodium, serum 136 mmol/L 211-983 0384/09/18 carbon dioxide, venous blood 24.3 mmol/L 21.0-32.0 [...] HGBA1C - Chemistry sodium, serum 139 mmol/L 520-123 3461/07/09 potassium, serum 5.4 mmol/L 3.5-5.2 chloride, serum [...] 8.5 % 4.3-6.0 sodium, serum 137 mmol/L 086-150 8496/02/12 potassium, serum 5.1 mmol/L 3.5-5.2 chloride, serum 103 mmol/L 98-107 carbon dioxide, venous blood 24.4 mmol/L 21.0-32.0 blood glucose 261 mg/dL 65-110 calcium, serum 9.0 mg/dL 8.5-10.1 urea nitrogen, blood 44 mg/dL 7-18 creatinine, serum 2.37 mg/dL 0.55-1.30 Lab Report: Lipid Panel - Chemistry cholesterol, serum 139 mg/dL 237-100 0030/09/10 triglyceride, serum, fasting 176 mg/dL 30-200 HDL cholesterol, serum 45 mg/dL 32-96 LDL cholesterol, serum 59 mg/dL 0-130 Lab Report: MICROALBUMIN - Chemistry albumin/creatinine ratio, urine 30 - 300 mg/g mg/g{creat} 0-29 Lab Report: MICROALBUMIN - Lab microalbumin, urine 30 0-19 Lab Report: Prostatic Specific Ag - Chemistry prostate specific antigen 1.52 ng/mL 0.00-4.00 Encounters Code Encounter Date Provider Facility CPT-09051 Level 4 Est. Patient 09:17:32 DESULFURIZER HAND Simon Castillo MD [facility] CPT-08429 Level 3 Est. Patient 11:22:22 DESULFURIZER HAND Simon Castillo MD [facility] CPT-03810 Level 3 Est. Patient 09:02:14 CDT Simon Castillo MD [facility] CPT-43955 Level 4 Est. Patient 08:47:25 CDT Simon Castillo MD [facility] CPT-84597 Level 4 Est. Patient 10:17:25 CDT Simon Castillo MD [facility] CPT-34124 Level 4 Est. Patient 10:10:09 DESULFURIZER HAND Simon Castillo MD [facility] CPT-54299 Level 4 Est. Patient 11:48:19 CDT Simon Castillo MD [facility] CPT-43332 Level 4 Est. Patient 08:59:29 CDT Simon Castillo MD [facility] CPT-65947 Level 4 Est. Patient 10:52:51 DESULFURIZER HAND Simon Castillo MD [facility] CPT-68181 Level 4 Est. Patient 11:50:30 CDT Simon Castillo MD [facility] CPT-37150 Level 4 Est. Patient 09:54:46 CDT Simon Castillo MD [facility] CPT-81714 Level 3 Est. Patient 11:10:14 CDT Simon Castillo MD [facility] CPT-90187 Level 4 Est. Patient 09:44:02 CDT Simon Castillo MD [facility] CPT-33764 Level 3 Est. Patient 09:27:48 CDT Simon Castillo MD [facility] CPT-14171 Level 3 Est. Patient 09:58:06 DESULFURIZER HAND Simon Castillo MD [facility] CPT-86678 Level 3 Est. Patient 09:51:35 CDT Simon Castillo MD [facility] Procedures Code Procedure Name Date Entry Date Standard Description CPT-96622 Bone Density 09:37:49 DESULFURIZER HAND CPT-21150 Fluzone High Dose 17:20:42 CDT CPT-53640 Prevnar 13 17:20:42 CDT CPT-67319 Administration 2+ single or combination vaccines inc oral 17:20:42 CDT CPT-31971 Administration single or combination vaccine inc oral 17 :20:42 CDT CPT-92403 Hand comp min 3V 09:24:38 CDT CPT-19942 Venipuncture Draw Fee 08:07:29 DESULFURIZER HAND CPT-46835 Venipuncture Draw Fee 09:02:51 DESULFURIZER HAND CPT-28589 Venipuncture Draw Fee 12:45:08 DESULFURIZER HAND CPT-75836 Venipuncture Draw Fee 09:25:31 CDT CPT-G0008 Administration of Influenza Virus Vaccine 14:41:29 CDT CPT-05130 Fluzone High-Dose Intramuscular Suspension 14:41:29 CDT CPT-Cryo Cryotherapy 11:48:20 CDT CPT-37163 EKG Trac and Interp 09:21:58 CDT CPT-52988 Chest 2V Frontal and Lat 09:21:58 CDT CPT-Cryo Cryotherapy 10:54:51 DESULFURIZER HAND CPT-14933 Administration 2+ single or combination vaccines inc oral 10:42:19 CDT CPT-85143 Administration single or combination vaccine inc oral 10 :42:19 CDT CPT-08322 Pneumovax 10:42:19 CDT CPT-90209 Influenza High Dose age 65+ 10:42:19 CDT CPT-58375 Administration single or combination vaccine inc oral 13 :18:54 CDT CPT-93254 Influenza High Dose age 65+ 13:18:54 CDT CPT-32394 Venipuncture Draw Fee 11:53:16 CDT CPT-58345 LS spine comp w obliq 11:03:13 CDT CPT-Cryo Cryotherapy 08:27:16 DESULFURIZER HAND CPT-55637 Administration single or combination vaccine inc oral 10 :56:34 CDT CPT-41425 Influenza High Dose age 65+ 10:56:34 CDT
--- OUTSIDE RECORDS SUMMARY | 2018-03-31 16:46 | XMS REPORT | Clinical Summary ---
Author Author Admin, RAFFI Organization [facility] Address Unknown Phone Unavailable Allergies, Adverse Reactions, Alerts Allergy Name Reaction Description Start Date Severity Status Provider No Known Allergies [facility] Conditions or Problems Problem Name Problem Code Onset Date Status Entry Date Provider Comment Standard Description Annotate DIABETES, TYPE 2 250.00 Active Simon Castillo MD Diabetes mellitus without mention of complication, type II or unspecified type, not stated as uncontrolled HYPERTENSION 401.9 Active Simon Castillo MD Unspecified essential [...] 466.0 Resolved Simon Castillo MD Acute bronchitis HEALTH SCREENING V70.0 Active Simon Castillo MD Routine general medical examination at a health care facility SINUSITIS, ACUTE 461.9 Resolved Simon Castillo MD Acute sinusitis, unspecified CHRONIC KIDNEY DISEASE UNSPECIFIED 585.9 Active Simon Castillo MD Chronic kidney disease, unspecified ABDOMINAL PAIN RIGHT LOWER QUADRANT 789.03 Resolved [...] lower urinary tract (LUTS) Bronchitis, acute 466.0 Active Simon Castillo MD Acute bronchitis FH DIABETES ICD-V18.0 Inactive Simon Castillo MD FH LUNG CANCER ICD-V16.1 Inactive Simon Castilol MD CHEST WALL PAIN, HX OF ICD-V15.89 Inactive Simon Castillo MD SEBORRHEIC KERATOSIS ICD-702.19 Inactive Simon Castillo MD BRONCHITIS, ACUTE ICD-466.0 Inactive Simon Castillo MD ABDOMINAL TENDERNESS ICD-789.60 Inactive Simon Castillo MD ABDOMINAL PAIN RIGHT LOWER QUADRANT ICD-789.03 Inactive Simon Castillo MD SINUSITIS, ACUTE ICD-461.9 Inactive Simon Castillo MD BENIGN PROSTATIC HYPERTROPHY, MILD, HX OF ICD-V13.89 Inactive Simon Castillo MD Chest pain ICD-786.50 Inactive Simon Castillo MD Cough ICD-786.2 Inactive Simon Castillo MD Obesity ICD-278.00 Inactive Simon Castillo MD 2013 SCIATICA ICD-724.3 Inactive Simon Castillo MD 2012 Medication List Medication Instructions Start Date Stop Date Generic Name NDC Status Provider Patient Instruction SYMBICORT 160-4.5 MCG/ACT AERO 2 puff BID BUDESONIDE- FORMOTEROL FUMARATE 41445570722 Active Simon Castillo MD Active PREDNISONE 20 MG TAB 2 tabs daily for 3 days, 1 tab daily for 3 days, 1/2 tab daily for 2 days PREDNISONE 97205301826 Active Simon Castillo MD Active AZITHROMYCIN 250 MG TABS 2 po qd x 1 day, then 1 po qd x 4 days AZITHROMYCIN 97605631894 Active Simon Castillo MD Active LISINOPRIL 10 MG TABS 1 tablet by mouth daily LISINOPRIL 27331354849 Active Simon Castillo MD Active GLIMEPIRIDE 1 MG TABS 1 po q a.m. GLIMEPIRIDE 37752933936 Active Simon Castillo MD Active CARVEDILOL 6.25 MG TABS 1 po BID CARVEDILOL 63903011750 Active Simon Castillo MD Active LISINOPRIL-HYDROCHLOROTHIAZIDE 20-12.5 MG TABS 1/2 tab by mouth daily LISINOPRIL-HYDROCHLOROTHIAZIDE 74320998921 No Longer Active Simon Castillo MD Active PREDNISONE 5 MG TABS 1 po qod PREDNISONE 53776467831 Active Simon Castillo MD Active TRAMADOL HCL 50 MG TABS 1-2 tablets every 6 hours as needed for pain TRAMADOL HCL 13070640159 Active Simon Castillo MD Active PREDNISONE 5 MG TAB Take one po qod PREDNISONE 11485874043 No Longer Active Simon Castillo MD Active GLYBURIDE 5 MG TAB Take one by mouth daily GLYBURIDE 66708770866 No Longer Active Simon Castillo MD Active LEVAQUIN 750 MG TABS 1 po qod x 5 doses LEVOFLOXACIN 73242430995 No Longer Active Simon Castillo MD Active CETIRIZINE HCL 10 MG TABS 1 po qd as needed for allergies CETIRIZINE HCL 99937376276 No Longer Active Simon Castillo MD Active FISH OIL 1000 MG CPDR 1 pill by mouth twice daily for cholesterol OMEGA -3 FATTY ACIDS 14334789056 Active Simon Castillo MD Active BILBERRY CAPS 1 tab daily BILBERRY (VACCINIUM MYRTILLUS) CAPS 22365218811 Active Simon Castillo MD Active ATENOLOL 50 MG TABS Take one by mouth daily ATENOLOL 36176773547 No Longer Active Simon Castillo MD Active FLONASE 50 MCG/ACT SUSP 2 puffs in each nostril daily FLUTICASONE PROPIONATE 51096718651 No Longer Active Simon Castillo MD Active GLYBURIDE 5 MG TAB Take one by mouth daily GLYBURIDE 87495606880 No Longer Active Simon Castillo MD Active SYMBICORT 80-4.5 MCG/ACT AERO 2 puffs twice a day BUDESONIDE-FORMOTEROL FUMARATE 59087761071 No Longer Active Simon Castillo MD Active PREDNISONE 20 MG TAB 2 tabs daily for 4 days, 1 tab daily for 4 days, 1/2 tab daily for 4 days PREDNISONE 89594200106 No Longer Active Simon Castillo MD Active AMOXICILLIN 500 MG CAPS 2 po BID x 10 days AMOXICILLIN 32436962602 No Longer Active Simon Castillo MD Active METFORMIN HCL 1000 MG TABS 1 by mounth twice a day METFORMIN HCL 26916481576 No Longer Active Simon Castillo MD Active LUTEIN-ZEAXANTHIN 6-1 MG TABS Take 2 by mouth daily LUTEIN-ZEAXANTHIN 55069878808 Active Simon Castillo MD Active IBUPROFEN 800 MG TABS Take 1 tab every 6 hrs prn IBUPROFEN 77633898231 No Longer Active Simon Castillo MD Active GLYBURIDE 2.5 MG TABS Take one by mouth daily GLYBURIDE 86603757129 No Longer Active Simon Castillo MD Active LANCETS MISC 2 qd LANCETS 09326919306 Active Pamela Conde Active ACACIA CONTOUR TEST STRP Use with testing twice daily GLUCOSE BLOOD 80914449020 Active Pamela Conde Active ACACIA ASPIRIN 325 MG TABS Take one by mouth daily ASPIRIN 44830918590 Active Pamela Conde Active GLYBURIDE 2.5 MG TABS Take one by mouth daily GLYBURIDE 2.5 MG TABS 881341 GLYBURIDE Inactive PREDNISONE 20 MG TAB 2 tabs daily for 4 days, 1 tab daily for 4 days, 1/2 tab daily for 4 days PREDNISONE 20 MG TAB 535814 PREDNISONE Inactive SYMBICORT 80-4.5 MCG/ACT AERO 2 puffs twice a day SYMBICORT 80-4.5 MCG/ACT AERO BUDESONIDE-FORMOTEROL FUMARATE Inactive FLONASE 50 MCG/ACT SUSP 2 puffs in each nostril daily FLONASE 50 MCG/ACT SUSP 908224 FLUTICASONE PROPIONATE Inactive ATENOLOL 50 MG TABS Take one by mouth daily ATENOLOL 50 MG TABS 574319 ATENOLOL Inactive CETIRIZINE HCL 10 MG TABS 1 po qd as needed for allergies CETIRIZINE HCL 10 MG TABS 4199459 CETIRIZINE HCL Inactive LEVAQUIN 750 MG TABS 1 po qod x 5 doses LEVAQUIN 750 MG TABS 358252 LEVOFLOXACIN Inactive GLYBURIDE 5 MG TAB Take one by mouth daily GLYBURIDE 5 MG TAB 889831 GLYBURIDE Inactive PREDNISONE 5 MG TAB Take one po qod PREDNISONE 5 MG TAB 660758 PREDNISONE Inactive AMOXICILLIN 500 MG CAPS 2 po BID x 10 days AMOXICILLIN 500 MG CAPS 582993 AMOXICILLIN Inactive GLYBURIDE 5 MG TAB Take one by mouth daily GLYBURIDE 5 MG TAB 122200 GLYBURIDE Inactive Immunizations Vaccine Administration Date Value Standard [...] E&M - 3141-9 202.6 [lb_av] Weight Measured blood pressure, diastolic - 8462-4 75 mm[Hg] BP castillo blood pressure, systolic - 8480-6 132 mm[Hg] BP sys height E&M - 8302-2 66.5 [in_us] Bdy height pulse rate E&M - 8867-4 105 /min Heart rate temperature E&M 97.6 [degF] Body temperature weight E&M - 3141-9 203 [lb_av] Weight Measured Diagnostic Results Date Name Value Unit Range Description Lab Report: Basic Metabolic Panel - Chemistry sodium, serum 137 mmol/L 778-866 2081/06/26 potassium, serum 5.7 mmol/L 3.5-5.2 chloride, serum 104 mmol/L 98-107 carbon dioxide, venous blood 21.2 mmol/L 21.0-32.0 blood glucose 129 mg/dL 65-110 calcium, serum 9.0 mg/dL 8.5-10.1 urea nitrogen, blood 67 mg/dL 7-18 creatinine, serum 3.30 mg/dL 0.60-1.30 sodium, serum 140 mmol/L 842-950 8174/07/10 potassium, serum 5.3 mmol/L 3.5-5.2 chloride, serum 105 mmol/L 98-107 carbon dioxide, venous blood 25.5 mmol/L 21.0-32.0 blood glucose 119 mg/dL 65-110 calcium, serum 8.9 mg/dL 8.5-10.1 urea nitrogen, blood 44 mg/dL 7-18 creatinine, serum 2.50 mg/dL 0.60-1.30 Lab Report: CBC, Renal Panel - Chemistry sodium, serum 137 mmol/L 153-579 1236/10/14 potassium, serum 5.6 mmol/L 3.5-5.2 chloride, serum 103 mmol/L 98-107 carbon dioxide, venous blood 24.9 mmol/L 21.0-32.0 blood glucose 200 mg/dL 65-110 urea nitrogen, blood 43 mg/dL 7-18 creatinine, serum 2.60 mg/dL 0.60-1.30 calcium, serum 9.1 mg/dL 8.5-10.1 sodium, serum 139 mmol/L 123-331 6973/11/13 potassium, serum 5.8 mmol/L 3.5-5.2 chloride, serum 105 mmol/L 98-107 carbon dioxide, venous blood 22.2 mmol/L 21.0-32.0 blood glucose 156 mg/dL 65-110 urea nitrogen, blood 49 mg/dL 7-18 creatinine, serum 2.30 mg/dL 0.60-1.30 calcium, serum 9.2 mg/dL 8.5-10.1 sodium, serum 140 mmol/L 354-868 6160/12/12 potassium, serum 5.5 mmol/L 3.5-5.2 chloride, serum [...] % 11.6-14.8 platelet count 217 10^3/MM^3 10*3/mm3 307-857 8445/10/14 leukocyte count, blood 9.2 10^3/MM^3 10*3/mm3 4.6-10.2 erythrocyte (RBC) count 4.67 10^6/MM^3 10*6/mm3 4.69-6.13 hemoglobin, blood 13.9 g/dL 13.5-17.5 hematocrit, blood 42.4 % 41.0-53.0 mean corpuscular volume, RBC 91 fL 80-97 mean corpuscular hemoglobin, RBC 29.7 pg 27.0-31.2 mean corpuscular hemoglobin concentration, RBC 32.8 G/DL % 31.8- 35.4 red blood cell distribution width 14.7 % 11.6-14.8 platelet count 214 10^3/MM^3 10*3/mm3 134-741 2201/11/13 leukocyte count, blood 9.7 10^3/MM^3 10*3/mm3 4.6-10.2 erythrocyte (RBC) count 4.79 10^6/MM^3 10*6/mm3 4.69-6.13 hemoglobin, blood 14.1 g/dL 13.5-17.5 hematocrit, blood 43.0 % 41.0-53.0 mean corpuscular volume, RBC 90 fL 80-97 mean corpuscular hemoglobin, RBC 29.5 pg 27.0-31.2 mean corpuscular hemoglobin concentration, RBC 32.8 G/DL % 31.8- 35.4 red blood cell distribution width 15.1 % 11.6-14.8 platelet count 241 10^3/MM^3 10*3/mm3 142-424 Lab Report: HGBA1C - Chemistry hemoglobin A1C, blood, as % of total hemoglobin 6.8 % 4.3-6.0 Lab Report: HGBA1C, Basic Metabolic Panel - Chemistry hemoglobin A1C, blood, as % of total hemoglobin 6.9 % 4.3-6.0 sodium, serum 137 mmol/L 172-357 4744/08/21 potassium, serum 5.3 mmol/L 3.5-5.2 chloride, serum 104 mmol/L 98-107 carbon dioxide, venous blood 20.4 mmol/L 21.0-32.0 blood glucose 173 mg/dL 65-110 calcium, serum 8.7 mg/dL 8.5-10.1 urea nitrogen, blood 46 mg/dL 7-18 creatinine, serum 2.60 mg/dL 0.60-1.30 Lab Report: Prostatic Specific Ag - Chemistry prostate specific antigen 1.52 ng/mL 0.00-4.00 Lab Report: Renal Panel - Chemistry sodium, serum 140 mmol/L 001-684 4344/11/17 potassium, serum 5.0 mmol/L 3.5-5.2 chloride, serum 104 mmol/L 98-107 carbon dioxide, venous blood 24.8 mmol/L 21.0-32.0 blood glucose 146 mg/dL 65-110 urea nitrogen, blood 46 mg/dL 7-18 creatinine, serum 2.60 mg/dL 0.60-1.30 calcium, serum 9.2 mg/dL 8.5-10.1 sodium, serum 139 mmol/L 527-248 0894/10/21 potassium, serum 4.7 mmol/L 3.5-5.2 chloride, serum 104 mmol/L 98-107 carbon dioxide, venous blood 26.1 mmol/L 21.0-32.0 blood glucose 148 mg/dL 65-110 urea nitrogen, blood 38 mg/dL 7-18 creatinine, serum 2.60 mg/dL 0.60-1.30 calcium, serum 8.6 mg/dL 8.5-10.1 Lab Report: UADIP W/MICRO, AUTO - Chemistry protein, total urine random Negative mg/dL Negative RBC, urine, dipstick Negative Negative Lab Report: UADIP W/MICRO, AUTO - Urinalysis urobilinogen, urine, semiquantitative (dipstick) 0.2 Normal leukocyte esterase, urine, by dipstick Negative Negative nitrite, urine, semiquantitative Negative Negative glucose, urine, semiquantitative Negative Negative ketones, urine, by test strip Negative Negative bilirubin, urine Negative Negative urine color Yellow Colorless;Lightyellow;Straw;Yellow appearance, urine Clear Clear specific gravity, urine 1.010 1.000-1.030 pH, urine, semiquantitative 5.5 5.0-8.5 Office Visit: 1 month F/U 302 - Chemistry cholesterol, target level 200 mg/dL triglyceride, target level 200 mg/dL HDL cholesterol, serum, target level 35 mg/dL LDL target level 100 mg/dL Encounters Code Encounter Date Provider Facility CPT-36501 Level 4 Est. Patient 10:17:25 CDT Simon Castillo MD [facility] CPT-37731 Level 4 Est. Patient 10:10:09 BOOK AUTHOR Simon Castillo MD [facility] CPT-53814 Level 4 Est. Patient 11:48:19 CDT Simon Castillo MD [facility] CPT-56990 Level 4 Est. Patient 08:59:29 CDT Simon Castillo MD [facility] CPT-74841 Level 4 Est. Patient 10:52:51 BOOK AUTHOR Simon Castillo MD [facility] CPT-35166 Level 4 Est. Patient 11:50:30 CDT Simon Castillo MD [facility] CPT-20860 Level 4 Est. Patient 09:54:46 CDT Simon Castillo MD [facility] CPT-03991 Level 3 Est. Patient 11:10:14 CDT Simon Castillo MD [facility] CPT-59695 Level 4 Est. Patient 09:44:02 CDT Simon Castillo MD [facility] CPT-11615 Level 3 Est. Patient 09:27:48 CDT Simon Castillo MD [facility] CPT-96872 Level 3 Est. Patient 09:58:06 BOOK AUTHOR Simon Castillo MD [facility] CPT-95398 Level 3 Est. Patient 09:51:35 CDT Simon Castillo MD [facility] Procedures Code Procedure Name Date Entry Date Standard Description CPT-64802 Venipuncture Draw Fee 08:07:29 BOOK AUTHOR CPT-41234 Venipuncture Draw Fee 09:02:51 BOOK AUTHOR CPT-03463 Venipuncture Draw Fee 12:45:08 BOOK AUTHOR CPT-62600 Venipuncture Draw Fee 09:25:31 CDT CPT-G0008 Administration of Influenza Virus Vaccine 14:41:29 CDT CPT-26515 Fluzone High-Dose Intramuscular Suspension 14:41:29 CDT CPT-Cryo Cryotherapy 11:48:20 CDT CPT-23163 EKG Trac and Interp 09:21:58 CDT CPT-50199 Chest 2V Frontal and Lat 09:21:58 CDT CPT-Cryo Cryotherapy 10:54:51 BOOK AUTHOR CPT-21624 Administration 2+ single or combination vaccines inc oral 10:42:19 CDT CPT-23585 Administration single or combination vaccine inc oral 10 :42:19 CDT CPT-38127 Pneumovax 10:42:19 CDT CPT-64324 Influenza High Dose age 65+ 10:42:19 CDT CPT-13841 Administration single or combination vaccine inc oral 13 :18:54 CDT CPT-07301 Influenza High Dose age 65+ 13:18:54 CDT CPT-58479 Venipuncture Draw Fee 11:53:16 CDT CPT-84734 LS spine comp w obliq 11:03:13 CDT CPT-Cryo Cryotherapy 08:27:16 BOOK AUTHOR CPT-85294 Administration single or combination vaccine inc oral 10 :56:34 CDT CPT-99133 Influenza High Dose age 65+ 10:56:34 CDT
--- OUTSIDE RECORDS SUMMARY | 2018-03-31 16:47 | XMS REPORT | Clinical Summary ---
Author Author Admin, E Organization [facility] Address Unknown Phone Unavailable Allergies, Adverse Reactions, Alerts Allergy Name Reaction Description Start Date Severity Status Provider No Known Allergies 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 ICD-V58.65 Inactive Simon Castillo MD Hand pain, bilateral ICD-729.5 Kerry Castillo MD Medication List Medication Instructions Start Date Stop Date Generic Name NDC Status Provider Patient Instruction TRIAMCINOLONE ACETONIDE 0.1 % OINT Apply to affected areas TID for up to 2 weeks TRIAMCINOLONE ACETONIDE 09946206357 Active Simon Castillo MD Active LASIX 20 MG TAB 1 tablet by mouth daily x 2 days FUROSEMIDE 49862053406 No Longer Active Simon Castillo MD Active SULFASALAZINE 500 MG ORAL TBEC 2 tabs BID SULFASALAZINE 58684386973 No Longer Active Neto Oshea DO Active PREDNISONE 20 MG TAB 2 tabs daily for 3 days, 1 tab daily for 3 days, 1/2 tab daily for 2 days PREDNISONE 87135492467 No Longer Active Jilltriston Tatum APRN Active PREDNISONE 20 MG TAB 1 tablet daily for airway inflammation 02/25 PREDNISONE 99394854166 No Longer Active 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 [employer] Active CLARITIN 10 MG TAB 1 tablet by mouth daily as needed for allergies LORATADINE 42895879826 Active Giles Tatum [employer] Active AZITHROMYCIN 250 MG TABS 2 po qd x 1 day, then 1 po qd x 4 days AZITHROMYCIN 78131517270 No Longer Active 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 [employer] Active GLIMEPIRIDE 2 MG ORAL TABS 1 po q a.m. GLIMEPIRIDE 71782530988 Active Simon Castillo MD Active HYDROCODONE-ACETAMINOPHEN 5-325 MG TABS 1 tab by mouth 8 hours as needed for pain HYDROCODONE-ACETAMINOPHEN 55827728813 Active Simon Castillo MD Active TRAMADOL HCL 50 MG TABS 1 po q6hr PRN Pain TRAMADOL HCL 24882705474 No Longer Active Simon Castillo MD Active PREDNISONE 5 MG TAB 1-2 tabs daily for rheumatoid arthritis PREDNISONE 52099662235 Active Simon Castillo MD Active PREDNISONE 5 MG TABS 1 po qod PREDNISONE 78324065062 No Longer Active Simon Castillo MD Active SYMBICORT 160-4.5 MCG/ACT AERO 2 puff BID BUDESONIDE- FORMOTEROL FUMARATE 11651837068 No Longer Active Simon Castillo MD Active FLONASE 50 MCG/ACT SUSP 2 puffs in each nostril daily FLUTICASONE PROPIONATE 13410952673 No Longer Active Simon Castillo MD Active PREDNISONE 20 MG TAB 2 tabs daily for 5 days, then 1 daily for 5 days PREDNISONE 74997352343 No Longer Active Simon Castillo MD Active PREDNISONE 20 MG TAB 2 tabs daily for 5 days, then 1 daily for 5 days, then 0.5 for 4 days PREDNISONE 66634738507 No Longer Active Simon Castillo MD Active CLOTRIMAZOLE 1 % EXT CREA Apply to affected area of feet twice daily PRN Rash CLOTRIMAZOLE 19667872597 Active Simon Castillo MD Active PREDNISONE 20 MG TAB 2 tabs daily for 3 days, 1 tab daily for 3 days, 1/2 tab daily for 2 days PREDNISONE 09874564937 No Longer Active Simon Castillo MD Active AZITHROMYCIN 250 MG TABS 2 po qd x 1 day, then 1 po qd x 4 days AZITHROMYCIN 37920941639 No Longer Active Simon Castillo MD Active LISINOPRIL 10 MG TABS 1 tablet by mouth daily LISINOPRIL 90933440217 Active Simon Castillo MD Active CARVEDILOL 6.25 MG TABS 1 po BID CARVEDILOL 43687418435 Active Simon Castillo MD Active LISINOPRIL-HYDROCHLOROTHIAZIDE 20-12.5 MG TABS 1/2 tab by mouth daily LISINOPRIL-HYDROCHLOROTHIAZIDE 34594992407 No Longer Active Simon Castillo MD Active TRAMADOL HCL 50 MG TABS 1-2 tablets every 6 hours as needed for pain TRAMADOL HCL 23113801398 Active Giles Tatum APRN Active PREDNISONE 5 MG TAB Take one po qod PREDNISONE 01362468570 No Longer Active Simon Castillo MD Active GLYBURIDE 5 MG TAB Take one by mouth daily GLYBURIDE 14912950080 No Longer Active Simon Castillo MD Active LEVAQUIN 750 MG TABS 1 po qod x 5 doses LEVOFLOXACIN 67679272702 No Longer Active Simon Castillo MD Active CETIRIZINE HCL 10 MG TABS 1 po qd as needed for allergies CETIRIZINE HCL 51300461863 No Longer Active Simon Castillo MD Active FISH OIL 1000 MG CPDR 1 pill by mouth twice daily for cholesterol OMEGA -3 FATTY ACIDS 56841101686 Active Simon Castillo MD Active BILBERRY CAPS 1 tab daily BILBERRY (VACCINIUM MYRTILLUS) CAPS 16203771086 Active Simon Castillo MD Active ATENOLOL 50 MG TABS Take one by mouth daily ATENOLOL 45188926968 No Longer Active Simon Castillo MD Active FLONASE 50 MCG/ACT SUSP 2 puffs in each nostril daily FLUTICASONE PROPIONATE 35570105512 No Longer Active Simon Castillo MD Active GLYBURIDE 5 MG TAB Take one by mouth daily GLYBURIDE 89102951856 No Longer Active Simon Castillo MD Active SYMBICORT 80-4.5 MCG/ACT AERO 2 puffs twice a day BUDESONIDE-FORMOTEROL FUMARATE 83742479676 No Longer Active Simon Castillo MD Active PREDNISONE 20 MG TAB 2 tabs daily for 4 days, 1 tab daily for 4 days, 1/2 tab daily for 4 days PREDNISONE 81032461356 No Longer Active Simon Castillo MD Active AMOXICILLIN 500 MG CAPS 2 po BID x 10 days AMOXICILLIN 82383090176 No Longer Active Simon Castillo MD Active METFORMIN HCL 1000 MG TABS 1 by mounth twice a day METFORMIN HCL 18329466106 No Longer Active Simon Castillo MD Active LUTEIN-ZEAXANTHIN 6-1 MG TABS Take 2 by mouth daily LUTEIN-ZEAXANTHIN 87129683582 Active Simon Castillo MD Active IBUPROFEN 800 MG TABS Take 1 tab every 6 hrs prn IBUPROFEN 16362087328 No Longer Active Simon Castillo MD Active GLYBURIDE 2.5 MG TABS Take one by mouth daily GLYBURIDE 08303739705 No Longer Active Simon Castillo MD Active LANCETS MISC 2 qd LANCETS 48021345539 Active Pamela Conde Active ACACIA CONTOUR TEST STRP Use with testing twice daily GLUCOSE BLOOD 40728483904 Active Simon Castillo MD Active ACACIA ASPIRIN 325 MG TABS Take one by mouth daily ASPIRIN 75209665861 Active Pamela Conde Active GLYBURIDE 2.5 MG TABS Take one by mouth daily GLYBURIDE 2.5 MG TABS 919203 GLYBURIDE Inactive PREDNISONE 20 MG TAB 2 tabs daily for 4 days, 1 tab daily for 4 days, 1/2 tab daily for 4 days PREDNISONE 20 MG TAB 831665 PREDNISONE Inactive SYMBICORT 80-4.5 MCG/ACT AERO 2 puffs twice a day SYMBICORT 80-4.5 MCG/ACT AERO BUDESONIDE-FORMOTEROL FUMARATE Inactive FLONASE 50 MCG/ACT SUSP 2 puffs in each nostril daily FLONASE 50 MCG/ACT SUSP FLUTICASONE PROPIONATE Inactive ATENOLOL 50 MG TABS Take one by mouth daily ATENOLOL 50 MG TABS 180873 ATENOLOL Inactive CETIRIZINE HCL 10 MG TABS 1 po qd as needed for allergies CETIRIZINE HCL 10 MG TABS 0338447 CETIRIZINE HCL Inactive LEVAQUIN 750 MG TABS 1 po qod x 5 doses LEVAQUIN 750 MG TABS 408476 LEVOFLOXACIN Inactive GLYBURIDE 5 MG TAB Take one by mouth daily GLYBURIDE 5 MG TAB 296776 GLYBURIDE Inactive PREDNISONE 5 MG TAB Take one po qod PREDNISONE 5 MG TAB 794088 PREDNISONE Inactive PREDNISONE 20 MG TAB 2 tabs daily for 5 days, then 1 daily for 5 days PREDNISONE 20 MG TAB 711807 PREDNISONE Inactive FLONASE 50 MCG/ACT SUSP 2 puffs in each nostril daily FLONASE 50 MCG/ACT SUSP FLUTICASONE PROPIONATE Inactive SYMBICORT 160-4.5 MCG/ACT AERO 2 puff BID SYMBICORT 160-4.5 MCG/ACT AERO BUDESONIDE-FORMOTEROL FUMARATE Inactive PREDNISONE 5 MG TABS 1 po qod PREDNISONE 5 MG TABS 027309 PREDNISONE Inactive PREDNISONE 20 MG TAB 1 tablet daily for airway inflammation 02/25 PREDNISONE 20 MG TAB 130334 PREDNISONE Inactive SULFASALAZINE 500 MG ORAL TBEC 2 tabs BID SULFASALAZINE 500 MG ORAL TBEC 110670 SULFASALAZINE Inactive LASIX 20 MG TAB 1 tablet by mouth daily x 2 days LASIX 20 MG TAB 384026 FUROSEMIDE Inactive AMOXICILLIN 500 MG CAPS 2 po BID x 10 days AMOXICILLIN 500 MG CAPS 421886 AMOXICILLIN Inactive GLYBURIDE 5 MG TAB Take one by mouth daily GLYBURIDE 5 MG TAB 466808 GLYBURIDE Inactive AZITHROMYCIN 250 MG TABS 2 po qd x 1 day, then 1 po qd x 4 days AZITHROMYCIN 250 MG TABS 9000557 AZITHROMYCIN Inactive PREDNISONE 20 MG TAB 2 tabs daily for 3 days, 1 tab daily for 3 days, 1/2 tab daily for 2 days PREDNISONE 20 MG TAB 373226 PREDNISONE Inactive PREDNISONE 20 MG TAB 2 tabs daily for 5 days, then 1 daily for 5 days, then 0.5 for 4 days PREDNISONE 20 MG TAB 884414 PREDNISONE Inactive AZITHROMYCIN 250 MG TABS 2 po qd x 1 day, then 1 po qd x 4 days AZITHROMYCIN 250 MG TABS 7158702 AZITHROMYCIN Inactive PREDNISONE 20 MG TAB 2 tabs daily for 3 days, 1 tab daily for 3 days, 1/2 tab daily for 2 days PREDNISONE 20 MG TAB 152766 PREDNISONE Inactive Immunizations Vaccine Administration Date Value Standard Description pneumococcal immunization administered Pneumovax 23 [CVX33] pneumococcal polysaccharide vaccine, 23 valent Vital Signs Date Name Value Unit Range Description blood pressure, diastolic - 8462-4 74 mm[Hg] BP catsillo blood pressure, systolic - 8480-6 139 mm[Hg] [...] E&M - 3141-9 214 [lb_av] Weight Measured Diagnostic Results Date Name [...] Panel - Chemistry sodium, serum 132 mmol/L 366-136 0607/10/26 carbon dioxide, venous blood 22.8 mmol/L 21.0-32.0 potassium, serum 5.4 mmol/L 3.5-5.2 chloride, serum 98 mmol/L 98-107 blood glucose 424 mg/dL 65-110 urea nitrogen, blood 40 mg/dL 7-18 creatinine, serum 2.26 mg/dL 0.55-1.30 alanine aminotransferase (SGPT), serum 29 U/L 12-78 aspartate aminotransferase (SGOT), serum 24 U/L 15-37 calcium, serum 8.6 mg/dL 8.5-10.1 bilirubin, serum, total 0.60 mg/dL 0.00-1.00 sodium, serum 137 mmol/L 372-479 6008/06/06 carbon dioxide, venous blood 24.9 mmol/L 21.0-32.0 [...] % 11.6-14.8 platelet count 210 10^3/MM^3 10*3/mm3 993-990 2929/10/26 leukocyte count, blood 10.3 10^3/MM^3 10*3/mm3 4.6-10.2 [...] Panel - Chemistry sodium, serum 139 mmol/L 831-813 0573/03/17 carbon dioxide, venous blood 29.0 mmol/L 21.0-32.0 [...] Rate - Chemistry sodium, serum 136 mmol/L 300-994 3436/09/18 carbon dioxide, venous blood 24.3 mmol/L 21.0-32.0 [...] HGBA1C - Chemistry sodium, serum 139 mmol/L 720-453 0600/07/09 potassium, serum 5.4 mmol/L 3.5-5.2 chloride, serum [...] 8.5 % 4.3-6.0 sodium, serum 137 mmol/L 132-983 2768/02/12 potassium, serum 5.1 mmol/L 3.5-5.2 chloride, serum 103 mmol/L 98-107 carbon dioxide, venous blood 24.4 mmol/L 21.0-32.0 blood glucose 261 mg/dL 65-110 calcium, serum 9.0 mg/dL 8.5-10.1 urea nitrogen, blood 44 mg/dL 7-18 creatinine, serum 2.37 mg/dL 0.55-1.30 Lab Report: Lipid Panel - Chemistry cholesterol, serum 139 mg/dL 345-700 3905/09/10 triglyceride, serum, fasting 176 mg/dL 30-200 HDL cholesterol, serum 45 mg/dL 32-96 LDL cholesterol, serum 59 mg/dL 0-130 Lab Report: MICROALBUMIN - Chemistry albumin/creatinine ratio, urine 30 - 300 mg/g mg/g{creat} 0-29 Lab Report: MICROALBUMIN - Lab microalbumin, urine 30 0-19 Lab Report: Uric Acid - Chemistry uric acid, serum 6.3 mg/dL 2.6-7.2 Encounters Code Encounter Date Provider Facility CPT-41279 Level 3 Est. Patient 09:18:25 CDT Simon Castillo MD [facility] CPT-01059 Level 4 Est. Patient 11:51:23 CDT Simon Castillo MD [facility] CPT-01929 Level 4 Est. Patient 14:32:04 CDT Neto Oshea DO [facility] CPT-57507 Level 3 Est. Patient 08:41:43 CDT Giles Tatum [facility] CPT-53730 Level 3 Est. Patient 08:40:53 CDT Jonathanllina Nashzell [facility] CPT-24530 Level 3 Est. Patient 08:36:52 CDT Jillina Nashzell [facility] CPT-67615 Level 3 Est. Patient 09:08:44 CDT Jiviraina Lolyl [facility] CPT-21840 Level 4 Est. Patient 09:17:32 ENERGY ATTORNEY Simon Castillo MD [facility] CPT-49486 Level 3 Est. Patient 11:22:22 ENERGY ATTORNEY Simno Castillo MD [facility] CPT-99920 Level 3 Est. Patient 09:02:14 CDT Simon Castillo MD [facility] CPT-14716 Level 4 Est. Patient 08:47:25 CDT Simon Castillo MD [facility] CPT-77496 Level 4 Est. Patient 10:17:25 CDT Simon Castillo MD [facility] CPT-64256 Level 4 Est. Patient 10:10:09 ENERGY ATTORNEY Simon Castillo MD [facility] CPT-70548 Level 4 Est. Patient 11:48:19 CDT Simon Castillo MD [facility] CPT-20595 Level 4 Est. Patient 08:59:29 CDT Simon Castillo MD [facility] CPT-34601 Level 4 Est. Patient 10:52:51 ENERGY ATTORNEY Simon Castillo MD [facility] CPT-57878 Level 4 Est. Patient 11:50:30 CDT Simon Castillo MD [facility] CPT-02374 Level 4 Est. Patient 09:54:46 CDT Simon Castillo MD [facility] CPT-84923 Level 3 Est. Patient 11:10:14 CDT Simon Castillo MD [facility] CPT-33242 Level 4 Est. Patient 09:44:02 CDT Simon Castillo MD [facility] CPT-03318 Level 3 Est. Patient 09:27:48 CDT Simon Castillo MD [facility] CPT-28742 Level 3 Est. Patient 09:58:06 ENERGY ATTORNEY Simon Castillo MD [facility] CPT-12954 Level 3 Est. Patient 09:51:35 CDT Simon Castillo MD [facility] Procedures Code Procedure Name Date Entry Date Standard Description CPT-G0438 Initial Annual Wellness Exam 08:57:30 CDT CPT-06618 Chest 2V Frontal and Lat - XRAY USE ONLY 09:00:14 CDT CPT-80002 Venipuncture Draw Fee 13:33:02 CDT CPT-54638 Bone Density 09:37:49 ENERGY ATTORNEY CPT-16868 Fluzone High Dose 17:20:42 CDT CPT-12413 Prevnar 13 17:20:42 CDT CPT-04059 Administration 2+ single or combination vaccines inc oral 17:20:42 CDT CPT-71704 Administration single or combination vaccine inc oral 17 :20:42 CDT CPT-82963 Hand comp min 3V 09:24:38 CDT CPT-04128 Venipuncture Draw Fee 08:07:29 ENERGY ATTORNEY CPT-53932 Venipuncture Draw Fee 09:02:51 ENERGY ATTORNEY CPT-52186 Venipuncture Draw Fee 12:45:08 ENERGY ATTORNEY CPT-60202 Venipuncture Draw Fee 09:25:31 CDT CPT-G0008 Administration of Influenza Virus Vaccine 14:41:29 CDT CPT-21132 Fluzone High-Dose Intramuscular Suspension 14:41:29 CDT CPT-Cryo Cryotherapy 11:48:20 CDT CPT-32443 EKG Trac and Interp 09:21:58 CDT CPT-17950 Chest 2V Frontal and Lat 09:21:58 CDT CPT-Cryo Cryotherapy 10:54:51 ENERGY ATTORNEY CPT-23490 Administration 2+ single or combination vaccines inc oral 10:42:19 CDT CPT-20126 Administration single or combination vaccine inc oral 10 :42:19 CDT CPT-72755 Pneumovax 10:42:19 CDT CPT-28417 Influenza High Dose age 65+ 10:42:19 CDT CPT-20773 Administration single or combination vaccine inc oral 13 :18:54 CDT CPT-40712 Influenza High Dose age 65+ 13:18:54 CDT CPT-88499 Venipuncture Draw Fee 11:53:16 CDT CPT-62938 LS spine comp w obliq 11:03:13 CDT CPT-Cryo Cryotherapy 08:27:16 ENERGY ATTORNEY CPT-56036 Administration single or combination vaccine inc oral 10 :56:34 CDT CPT-79502 Influenza High Dose age 65+ 10:56:34 CDT
--- OUTSIDE RECORDS SUMMARY | 2018-03-31 16:48 | XMS REPORT | Clinical Summary ---
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 Kerry Castillo MD Hand pain, bilateral [...] MG ORAL TABS 1 po qd BUMETANIDE 18046187102 Active Simon Castillo MD Active AUGMENTIN 875-125 MG ORAL TABS 1 po BID x 10 days AMOXICILLIN-POT CLAVULANATE 27717992524 Active Simon Castillo MD Active PIOGLITAZONE HCL 30 MG ORAL TABS 1 po qd PIOGLITAZONE HCL 58412263098 Active Simon Castillo MD Active GLIMEPIRIDE 4 MG ORAL TABS 1 po BID GLIMEPIRIDE 59876427076 Active Simon Castillo MD Active ASPIRIN EC 81 MG ORAL TBEC 1 po qd ASPIRIN 14010403813 Active Simon Castillo MD Active CLOTRIMAZOLE 1 % EXT CREA Apply to affected area of feet twice daily PRN Rash CLOTRIMAZOLE 75538273038 No Longer Active Simon Castillo MD Active PREDNISONE 5 MG TAB 1 po BID PREDNISONE 87599333330 Active Simon Castillo MD Active FISH OIL 1000 MG CPDR 1 po BID OMEGA-3 FATTY ACIDS 82722346747 Active Simon Castillo MD Active LISINOPRIL 10 MG TABS 1 p qd LISINOPRIL 85261749470 Active Simon Castillo MD Active CLARITIN 10 MG TAB 1 tablet by mouth daily as needed for allergies LORATADINE 40493512125 No Longer Active Simon Castillo MD Active TRIAMCINOLONE ACETONIDE 0.1 % OINT Apply to affected areas TID for up to 2 weeks TRIAMCINOLONE ACETONIDE 70397831630 No Longer Active Simon Castillo MD Active LASIX 20 MG TAB 1 tablet by mouth daily x 2 days FUROSEMIDE 84934198463 No Longer Active Simon Castillo MD Active SULFASALAZINE 500 MG ORAL TBEC 2 tabs BID SULFASALAZINE 97003746171 No Longer Active Neto Oshea DO Active PREDNISONE 20 MG TAB 2 tabs daily for 3 days, 1 tab daily for 3 days, 1/2 tab daily for 2 days PREDNISONE 98704968023 No Longer Active 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 BACK DIGGER 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 PREDNISONE 20 MG TAB 1 tablet daily for airway inflammation 02/25 PREDNISONE 23084028622 No Longer Active 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 BACK DIGGER 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 AZITHROMYCIN 250 MG TABS 2 po qd x 1 day, then 1 po qd x 4 days AZITHROMYCIN 83337294716 No Longer Active 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 BACK DIGGER 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 HYDROCODONE-ACETAMINOPHEN 5-325 MG TABS 1 tab by mouth 8 hours as needed for pain HYDROCODONE-ACETAMINOPHEN 39526750038 Active Simon Castillo MD Active TRAMADOL HCL 50 MG TABS 1 po q6hr PRN Pain TRAMADOL HCL 77653213503 No Longer Active Simon Castillo MD Active PREDNISONE 5 MG TABS 1 po qod PREDNISONE 27758709155 No Longer Active Simon Castillo MD Active SYMBICORT 160-4.5 MCG/ACT AERO 2 puff BID BUDESONIDE- FORMOTEROL FUMARATE 15783730842 No Longer Active Simon Castillo MD Active FLONASE 50 MCG/ACT SUSP 2 puffs in each nostril daily FLUTICASONE PROPIONATE 98830901262 No Longer Active Simon Castillo MD Active PREDNISONE 20 MG TAB 2 tabs daily for 5 days, then 1 daily for 5 days PREDNISONE 42663167284 No Longer Active Simon Castillo MD Active PREDNISONE 20 MG TAB 2 tabs daily for 5 days, then 1 daily for 5 days, then 0.5 for 4 days PREDNISONE 27627287855 No Longer Active Simon Castillo MD Active PREDNISONE 20 MG TAB 2 tabs daily for 3 days, 1 tab daily for 3 days, 1/2 tab daily for 2 days PREDNISONE 58958918227 No Longer Active Simon Castillo MD Active AZITHROMYCIN 250 MG TABS 2 po qd x 1 day, then 1 po qd x 4 days AZITHROMYCIN 19115540418 No Longer Active Simon Castillo MD Active CARVEDILOL 6.25 MG TABS 1 po BID CARVEDILOL 88247256009 Active Simon Castillo MD Active LISINOPRIL-HYDROCHLOROTHIAZIDE 20-12.5 MG TABS 1/2 tab by mouth daily LISINOPRIL-HYDROCHLOROTHIAZIDE 24197532024 No Longer Active Simon Castillo MD Active TRAMADOL HCL 50 MG TABS 1-2 tablets every 6 hours as needed for pain TRAMADOL HCL 43750642441 Active Giles Tatum APRN Active PREDNISONE 5 MG TAB Take one po qod PREDNISONE 47580806800 No Longer Active Simon Castillo MD Active GLYBURIDE 5 MG TAB Take one by mouth daily GLYBURIDE 25427404915 No Longer Active Simon Castillo MD Active LEVAQUIN 750 MG TABS 1 po qod x 5 doses LEVOFLOXACIN 94271464432 No Longer Active Simon Castillo MD Active CETIRIZINE HCL 10 MG TABS 1 po qd as needed for allergies CETIRIZINE HCL 68607709084 No Longer Active Simon Castillo MD Active BILBERRY CAPS 1 tab daily BILBERRY (VACCINIUM MYRTILLUS) CAPS 10650114903 Active Simon Castillo MD Active ATENOLOL 50 MG TABS Take one by mouth daily ATENOLOL 18329218664 No Longer Active Simon Castillo MD Active FLONASE 50 MCG/ACT SUSP 2 puffs in each nostril daily FLUTICASONE PROPIONATE 36791221153 No Longer Active Simon Castillo MD Active GLYBURIDE 5 MG TAB Take one by mouth daily GLYBURIDE 55465375283 No Longer Active Simon Castillo MD Active SYMBICORT 80-4.5 MCG/ACT AERO 2 puffs twice a day BUDESONIDE-FORMOTEROL FUMARATE 62275410655 No Longer Active Simon Castillo MD Active PREDNISONE 20 MG TAB 2 tabs daily for 4 days, 1 tab daily for 4 days, 1/2 tab daily for 4 days PREDNISONE 24640313854 No Longer Active Simon Castillo MD Active AMOXICILLIN 500 MG CAPS 2 po BID x 10 days AMOXICILLIN 14273067758 No Longer Active Simon Castillo MD Active METFORMIN HCL 1000 MG TABS 1 by mounth twice a day METFORMIN HCL 59264543406 No Longer Active Simon Castillo MD Active LUTEIN-ZEAXANTHIN 6-1 MG TABS Take 2 by mouth daily LUTEIN-ZEAXANTHIN 93341877071 Active Simon Castillo MD Active IBUPROFEN 800 MG TABS Take 1 tab every 6 hrs prn IBUPROFEN 31662446932 No Longer Active Simon Castillo MD Active GLYBURIDE 2.5 MG TABS Take one by mouth daily GLYBURIDE 92480510163 No Longer Active Simon Castillo MD Active LANCETS MISC 2 qd LANCETS 62169686502 Active Pamela Conde Active ACACIA CONTOUR TEST STRP Use with testing twice daily GLUCOSE BLOOD 81953853821 Active Smion Castillo MD Active GLYBURIDE 2.5 MG TABS Take one by mouth daily GLYBURIDE 2.5 MG TABS 038211 GLYBURIDE Inactive PREDNISONE 20 MG TAB 2 tabs daily for 4 days, 1 tab daily for 4 days, 1/2 tab daily for 4 days PREDNISONE 20 MG TAB 018067 PREDNISONE Inactive SYMBICORT 80-4.5 MCG/ACT AERO 2 puffs twice a day SYMBICORT 80-4.5 MCG/ACT AERO BUDESONIDE-FORMOTEROL FUMARATE Inactive FLONASE 50 MCG/ACT SUSP 2 puffs in each nostril daily FLONASE 50 MCG/ACT SUSP 8721387 FLUTICASONE PROPIONATE Inactive ATENOLOL 50 MG TABS Take one by mouth daily ATENOLOL 50 MG TABS 935033 ATENOLOL Inactive CETIRIZINE HCL 10 MG TABS 1 po qd as needed for allergies CETIRIZINE HCL 10 MG TABS 2682295 CETIRIZINE HCL Inactive LEVAQUIN 750 MG TABS 1 po qod x 5 doses LEVAQUIN 750 MG TABS 556160 LEVOFLOXACIN Inactive GLYBURIDE 5 MG TAB Take one by mouth daily GLYBURIDE 5 MG TAB 219288 GLYBURIDE Inactive PREDNISONE 5 MG TAB Take one po qod PREDNISONE 5 MG TAB 346795 PREDNISONE Inactive PREDNISONE 20 MG TAB 2 tabs daily for 5 days, then 1 daily for 5 days PREDNISONE 20 MG TAB 488038 PREDNISONE Inactive FLONASE 50 MCG/ACT SUSP 2 puffs in each nostril daily FLONASE 50 MCG/ACT SUSP 2361728 FLUTICASONE PROPIONATE Inactive SYMBICORT 160-4.5 MCG/ACT AERO 2 puff BID SYMBICORT 160-4.5 MCG/ACT AERO BUDESONIDE-FORMOTEROL FUMARATE Inactive PREDNISONE 5 MG TABS 1 po qod PREDNISONE 5 MG TABS 446328 PREDNISONE Inactive PREDNISONE 20 MG TAB 1 tablet daily for airway inflammation 02/25 PREDNISONE 20 MG TAB 400374 PREDNISONE Inactive SULFASALAZINE 500 MG ORAL TBEC 2 tabs BID SULFASALAZINE 500 MG ORAL [facility] 082277 SULFASALAZINE Inactive LASIX 20 MG TAB 1 tablet by mouth daily x 2 days LASIX 20 MG TAB 496368 FUROSEMIDE Inactive CLARITIN 10 MG TAB 1 tablet by mouth daily as needed for allergies CLARITIN 10 MG TAB 560563 LORATADINE Inactive CLOTRIMAZOLE 1 % EXT CREA Apply to affected area of feet twice daily PRN Rash CLOTRIMAZOLE 1 % EXT CREA 937305 CLOTRIMAZOLE Inactive AMOXICILLIN 500 MG CAPS 2 po BID x 10 days AMOXICILLIN 500 MG CAPS 666140 AMOXICILLIN Inactive GLYBURIDE 5 MG TAB Take one by mouth daily GLYBURIDE 5 MG TAB 161265 GLYBURIDE Inactive AZITHROMYCIN 250 MG TABS 2 po qd x 1 day, then 1 po qd x 4 days AZITHROMYCIN 250 MG TABS 4462645 AZITHROMYCIN Inactive PREDNISONE 20 MG TAB 2 tabs daily for 3 days, 1 tab daily for 3 days, 1/2 tab daily for 2 days PREDNISONE 20 MG TAB 743430 PREDNISONE Inactive PREDNISONE 20 MG TAB 2 tabs daily for 5 days, then 1 daily for 5 days, then 0.5 for 4 days PREDNISONE 20 MG TAB 551007 PREDNISONE Inactive AZITHROMYCIN 250 MG TABS 2 po qd x 1 day, then 1 po qd x 4 days AZITHROMYCIN 250 MG TABS 5030618 AZITHROMYCIN Inactive PREDNISONE 20 MG TAB 2 tabs daily for 3 days, 1 tab daily for 3 days, 1/2 tab daily for 2 days PREDNISONE 20 MG TAB 892245 PREDNISONE Inactive TRIAMCINOLONE ACETONIDE 0.1 % OINT Apply to affected areas TID for up to 2 weeks TRIAMCINOLONE ACETONIDE 0.1 % OINT 1238798 TRIAMCINOLONE ACETONIDE Inactive Immunizations Vaccine Administration Date [...] Panel - Chemistry sodium, serum 140 mmol/L 086-382 2154/07/13 carbon dioxide, venous blood 23.7 mmol/L 21.0-32.0 [...] Panel - Chemistry cholesterol, serum 126 mg/dL 466-523 5057/02/07 triglyceride, serum, fasting 83 mg/dL 30-200 HDL cholesterol, serum 70 mg/dL 32-96 LDL cholesterol, serum 39 mg/dL 0-130 hemoglobin A1C, blood, as % of total hemoglobin 8.3 % 4.3-6.0 sodium, serum 141 mmol/L 577-746 8414/02/07 carbon dioxide, venous blood 26.0 mmol/L 21.0-32.0 [...] 0.00-1.00 Encounters Code Encounter Date Provider Facility CPT-10137 Level 4 Est. Patient 08:48:38 CDT Simon Castillo MD [facility] CPT-67797 Level 4 Est. Patient 09:54:08 CDT Simon Castillo MD [facility] CPT-47958 Level 4 Est. Patient 16:11:23 CDT Simon Castillo MD [facility] CPT-72735 Level 4 Est. Patient 09:29:28 DEER FARMER Simon Castillo MD [facility] CPT-17059 Level 3 Est. Patient 09:18:25 CDT Simon Castillo MD [facility] CPT-05343 Level 4 Est. Patient 11:51:23 CDT Simon Castillo MD [facility] CPT-77625 Level 4 Est. Patient 14:32:04 CDT Neto Oshea DO [facility] CPT-54452 Level 3 Est. Patient 08:41:43 CDT Giles Tatum [facility] CPT-47701 Level 3 Est. Patient 08:40:53 CDT Giles Salcidol [facility] CPT-06038 Level 3 Est. Patient 08:36:52 CDT Giles Salcidol [facility] CPT-22939 Level 3 Est. Patient 09:08:44 CDT Giles Salcidol [facility] CPT-99946 Level 4 Est. Patient 09:17:32 DEER FARMER Simon Castillo MD [facility] CPT-16036 Level 3 Est. Patient 11:22:22 DEER FARMER Simon Castillo MD [facility] CPT-63722 Level 3 Est. Patient 09:02:14 CDT Simon Castillo MD [facility] CPT-79763 Level 4 Est. Patient 08:47:25 CDT Simon Castillo MD [facility] CPT-87144 Level 4 Est. Patient 10:17:25 CDT Simon Castillo MD [facility] CPT-97431 Level 4 Est. Patient 10:10:09 DEER FARMER Simon Castillo MD [facility] CPT-35132 Level 4 Est. Patient 11:48:19 CDT Simon Castillo MD [facility] CPT-88332 Level 4 Est. Patient 08:59:29 CDT Simon Castillo MD [facility] CPT-40850 Level 4 Est. Patient 10:52:51 DEER FARMER Simon Castillo MD [facility] CPT-30956 Level 4 Est. Patient 11:50:30 CDT Simon Castillo MD [facility] CPT-18158 Level 4 Est. Patient 09:54:46 CDT Simon Castillo MD [facility] CPT-21178 Level 3 Est. Patient 11:10:14 CDT Simon Castillo MD [facility] CPT-63897 Level 4 Est. Patient 09:44:02 CDT Simon Castillo MD [facility] CPT-75892 Level 3 Est. Patient 09:27:48 CDT Simon Castillo MD [facility] CPT-16530 Level 3 Est. Patient 09:58:06 DEER FARMER Simon Castillo MD [facility] CPT-12856 Level 3 Est. Patient 09:51:35 CDT Simon Castillo MD [facility] Procedures Code Procedure Name Date Entry Date Standard Description CPT-G0439 Subsequent Annual Wellness Exam 09:41:17 CDT CPT-63570 Lipid - LAB USE ONLY 17:15:33 CDT CPT-59966 HGBA1C - LAB USE ONLY 17:15:33 CDT CPT-24560 CMP - LAB USE ONLY 17:15:33 CDT CPT-56204 Venipuncture Draw Fee 17:15:33 CDT CPT-[facility] Transitional Care Mgmt-High 11:01:28 DEER FARMER CPT-37116 First Vx - Ix admin for Medicare patients 17:33:39 CDT CPT-23828 Fluzone High-Dose Intramuscular Suspension 17:33:39 CDT CPT-G0438 Initial Annual Wellness Exam 08:57:30 CDT CPT-65289 Chest 2V Frontal and Lat - XRAY USE ONLY 09:00:14 CDT CPT-32989 Venipuncture Draw Fee 13:33:02 CDT CPT-04084 Bone Density 09:37:49 [employer]ER CPT-47804 Fluzone High Dose 17:20:42 CDT CPT-01688 Prevnar 13 17:20:42 CDT CPT-24245 Administration 2+ single or combination vaccines inc oral 17:20:42 CDT CPT-37814 Administration single or combination vaccine inc oral 17 :20:42 CDT CPT-98234 Hand comp min 3V 09:24:38 CDT CPT-05478 Venipuncture Draw Fee 08:07:29 DEER FARMER CPT-17269 Venipuncture Draw Fee 09:02:51 DEER FARMER CPT-40696 Venipuncture Draw Fee 12:45:08 DEER FARMER CPT-05039 Venipuncture Draw Fee 09:25:31 CDT CPT-G0008 Administration of Influenza Virus Vaccine 14:41:29 CDT CPT-13303 Fluzone High-Dose Intramuscular Suspension 14:41:29 CDT CPT-Cryo Cryotherapy 11:48:20 CDT CPT-26739 EKG Trac and Interp 09:21:58 CDT CPT-49363 Chest 2V Frontal and Lat 09:21:58 CDT CPT-Cryo Cryotherapy 10:54:51 DEER FARMER CPT-68108 Administration 2+ single or combination vaccines inc oral 10:42:19 CDT CPT-67304 Administration single or combination vaccine inc oral 10 :42:19 CDT CPT-98714 Pneumovax 10:42:19 CDT CPT-30771 Influenza High Dose age 65+ 10:42:19 CDT CPT-60499 Administration single or combination vaccine inc oral 13 :18:54 CDT CPT-15086 Influenza High Dose age 65+ 13:18:54 CDT CPT-75489 Venipuncture Draw Fee 11:53:16 CDT CPT-86235 LS spine comp w obliq 11:03:13 CDT CPT-Cryo Cryotherapy 08:27:16 DEER FARMER CPT-53091 Administration single or combination vaccine inc oral 10 :56:34 CDT CPT-85476 Influenza High Dose age 65+ 10:56:34 CDT
[2018-03-31 16:49] LABS: BASOPHILS % (AUTO) 0 % (0-10); EOSINOPHILS # (AUTO) 0.2 10^3/uL (0.0-0.3); EOSINOPHILS % (AUTO) 3 % (0-10); HEMATOCRIT 31 % (40-54); HEMOGLOBIN 9.7 G/DL (13.3-17.7); LYMPHOCYTES # (AUTO) 0.9 X 10^3 (1.0-4.0); LYMPHOCYTES % (AUTO) 10 % (12-44); MEAN CORPUSCULAR HEMOGLOBIN 31 PG (25-34); MEAN CORPUSCULAR HGB CONC 31 G/DL (32-36); MEAN CORPUSCULAR VOLUME 99 FL (80-99); MEAN PLATELET VOLUME 9.5 FL (7.4-10.4); MONOCYTES # (AUTO) 0.8 X 10^3 (0.0-1.0); MONOCYTES % (AUTO) 9 % (0-12); NEUTROPHILS # (AUTO) 6.7 X 10^3 (1.8-7.8); NEUTROPHILS % (AUTO) 78 % (42-75); PLATELET COUNT 197 10^3/uL (130-400); RED BLOOD COUNT 3.18 10^6/uL (4.35-5.85); RED CELL DISTRIBUTION WIDTH 14.8 % (10.0-14.5); WHITE BLOOD COUNT 8.6 10^3/uL (4.3-11.0)
[2018-03-31 16:49] LABS: MYOGLOBIN SERUM 139.8 NG/ML (10.0-92.0)
--- OUTSIDE RECORDS SUMMARY | 2018-03-31 16:49 | XMS REPORT | Clinical Summary ---
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 Simon Castillo MD Long-term (current) [...] Rheumatoid arthritis Pharyngitis 462 Active 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 Acute pharyngitis Dyspnea 786.09 Active 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 Other dyspnea and respiratory abnormality Peripheral edema 782.3 Active 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 Edema 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 Simon Castillo [...] Inactive Simon Castillo MD 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, 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 ICD-V58.65 Inactive Simon Castillo MD Hand pain, bilateral ICD-729.5 Kerry Castillo MD Medication List Medication Instructions Start Date Stop Date Generic Name NDC Status Provider Patient Instruction TRIAMCINOLONE ACETONIDE 0.1 % OINT Apply to affected areas TID for up to 2 weeks TRIAMCINOLONE ACETONIDE 00122420572 No Longer Active Simon Castillo MD Active LASIX 20 MG TAB 1 tablet by mouth daily x 2 days FUROSEMIDE 62384885306 No Longer Active Simon Castillo MD Active SULFASALAZINE 500 MG ORAL TBEC 2 tabs BID SULFASALAZINE 48373166523 No Longer Active Neto Oshea DO Active PREDNISONE 20 MG TAB 2 tabs daily for 3 days, 1 tab daily for 3 days, 1/2 tab daily for 2 days PREDNISONE 80868507864 No Longer Active Jillina Frazelalejandrina HEMPHILL Active PREDNISONE 20 MG TAB 1 tablet daily for airway inflammation 02/25 PREDNISONE 97301428355 No Longer Active 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 GLIMEPIRIDE 84621425969 Active Simon Castillo MD Active HYDROCODONE-ACETAMINOPHEN 5-325 MG TABS 1 tab by mouth 8 hours as needed for pain HYDROCODONE-ACETAMINOPHEN 70300545603 Active Simon Castillo MD Active TRAMADOL HCL 50 MG TABS 1 po q6hr PRN Pain TRAMADOL HCL 48042070872 No Longer Active Simon Castillo MD Active PREDNISONE 5 MG TAB 1-2 tabs daily for rheumatoid arthritis PREDNISONE 07681544720 Active Simon Castillo MD Active PREDNISONE 5 MG TABS 1 po qod PREDNISONE 87189330425 No Longer Active Simon Castillo MD Active SYMBICORT 160-4.5 MCG/ACT AERO 2 puff BID BUDESONIDE- FORMOTEROL FUMARATE 31305932412 No Longer Active Simon Castillo MD Active FLONASE 50 MCG/ACT SUSP 2 puffs in each nostril daily FLUTICASONE PROPIONATE 13886952673 No Longer Active Simon Castillo MD Active PREDNISONE 20 MG TAB 2 tabs daily for 5 days, then 1 daily for 5 days PREDNISONE 18803757215 No Longer Active Simon Castillo MD Active PREDNISONE 20 MG TAB 2 tabs daily for 5 days, then 1 daily for 5 days, then 0.5 for 4 days PREDNISONE 36779337721 No Longer Active Simon Castillo MD Active CLOTRIMAZOLE 1 % EXT CREA Apply to affected area of feet twice daily PRN Rash CLOTRIMAZOLE 69121775568 Active Simon Castillo MD Active PREDNISONE 20 MG TAB 2 tabs daily for 3 days, 1 tab daily for 3 days, 1/2 tab daily for 2 days PREDNISONE 81164192761 No Longer Active Simon Castillo MD Active AZITHROMYCIN 250 MG TABS 2 po qd x 1 day, then 1 po qd x 4 days AZITHROMYCIN 39596961413 No Longer Active Simon Castillo MD Active LISINOPRIL 10 MG TABS 1 tablet by mouth daily LISINOPRIL 19505011809 Active Simon Castillo MD Active CARVEDILOL 6.25 MG TABS 1 po BID CARVEDILOL 30747683172 Active Simon Castillo MD Active LISINOPRIL-HYDROCHLOROTHIAZIDE 20-12.5 MG TABS 1/2 tab by mouth daily LISINOPRIL-HYDROCHLOROTHIAZIDE 87256267434 No Longer Active Simon Castillo MD Active TRAMADOL HCL 50 MG TABS 1-2 tablets every 6 hours as needed for pain TRAMADOL HCL 31567057498 Active Giles Tatum APRN Active PREDNISONE 5 MG TAB Take one po qod PREDNISONE 06029591437 No Longer Active Simon Castillo MD Active GLYBURIDE 5 MG TAB Take one by mouth daily GLYBURIDE 68766435950 No Longer Active Simon Castillo MD Active LEVAQUIN 750 MG TABS 1 po qod x 5 doses LEVOFLOXACIN 66931120053 No Longer Active Simon Castillo MD Active CETIRIZINE HCL 10 MG TABS 1 po qd as needed for allergies CETIRIZINE HCL 56837457522 No Longer Active Simon Castillo MD Active FISH OIL 1000 MG CPDR 1 pill by mouth twice daily for cholesterol OMEGA -3 FATTY ACIDS 31779492972 Active Simon Castillo MD Active BILBERRY CAPS 1 tab daily BILBERRY (VACCINIUM MYRTILLUS) CAPS 62591654669 Active Simon Castillo MD Active ATENOLOL 50 MG TABS Take one by mouth daily ATENOLOL 46559159502 No Longer Active Simon Castillo MD Active FLONASE 50 MCG/ACT SUSP 2 puffs in each nostril daily FLUTICASONE PROPIONATE 80343707264 No Longer Active Simon Castillo MD Active GLYBURIDE 5 MG TAB Take one by mouth daily GLYBURIDE 02274963773 No Longer Active Simon Castillo MD Active SYMBICORT 80-4.5 MCG/ACT AERO 2 puffs twice a day BUDESONIDE-FORMOTEROL FUMARATE 89060294709 No Longer Active Simon Castillo MD Active PREDNISONE 20 MG TAB 2 tabs daily for 4 days, 1 tab daily for 4 days, 1/2 tab daily for 4 days PREDNISONE 07527819229 No Longer Active Simon Castillo MD Active AMOXICILLIN 500 MG CAPS 2 po BID x 10 days AMOXICILLIN 01947494008 No Longer Active Simon Castillo MD Active METFORMIN HCL 1000 MG TABS 1 by mounth twice a day METFORMIN HCL 02658580983 No Longer Active Simon Castillo MD Active LUTEIN-ZEAXANTHIN 6-1 MG TABS Take 2 by mouth daily LUTEIN-ZEAXANTHIN 55061920318 Active Simon Castillo MD Active IBUPROFEN 800 MG TABS Take 1 tab every 6 hrs prn IBUPROFEN 14577523369 No Longer Active Simon Castillo MD Active GLYBURIDE 2.5 MG TABS Take one by mouth daily GLYBURIDE 86086623344 No Longer Active Simon Castillo MD Active LANCETS MISC 2 qd LANCETS 66961563920 Active Pamela Conde Active ACACIA CONTOUR TEST STRP Use with testing twice daily GLUCOSE BLOOD 19521168220 Active Simon Castillo MD Active ACACIA ASPIRIN 325 MG TABS Take one by mouth daily ASPIRIN 11286292598 Active Pamela Conde Active GLYBURIDE 2.5 MG TABS Take one by mouth daily GLYBURIDE 2.5 MG TABS 783089 GLYBURIDE Inactive PREDNISONE 20 MG TAB 2 tabs daily for 4 days, 1 tab daily for 4 days, 1/2 tab daily for 4 days PREDNISONE 20 MG TAB 069666 PREDNISONE Inactive SYMBICORT 80-4.5 MCG/ACT AERO 2 puffs twice a day SYMBICORT 80-4.5 MCG/ACT AERO BUDESONIDE-FORMOTEROL FUMARATE Inactive FLONASE 50 MCG/ACT SUSP 2 puffs in each nostril daily FLONASE 50 MCG/ACT SUSP FLUTICASONE PROPIONATE Inactive ATENOLOL 50 MG TABS Take one by mouth daily ATENOLOL 50 MG TABS 885943 ATENOLOL Inactive CETIRIZINE HCL 10 MG TABS 1 po qd as needed for allergies CETIRIZINE HCL 10 MG TABS 4415780 CETIRIZINE HCL Inactive LEVAQUIN 750 MG TABS 1 po qod x 5 doses LEVAQUIN 750 MG TABS 213165 LEVOFLOXACIN Inactive GLYBURIDE 5 MG TAB Take one by mouth daily GLYBURIDE 5 MG TAB 526972 GLYBURIDE Inactive PREDNISONE 5 MG TAB Take one po qod PREDNISONE 5 MG TAB 695153 PREDNISONE Inactive PREDNISONE 20 MG TAB 2 tabs daily for 5 days, then 1 daily for 5 days PREDNISONE 20 MG TAB 366373 PREDNISONE Inactive FLONASE 50 MCG/ACT SUSP 2 puffs in each nostril daily FLONASE 50 MCG/ACT SUSP FLUTICASONE PROPIONATE Inactive SYMBICORT 160-4.5 MCG/ACT AERO 2 puff BID SYMBICORT 160-4.5 MCG/ACT AERO BUDESONIDE-FORMOTEROL FUMARATE Inactive PREDNISONE 5 MG TABS 1 po qod PREDNISONE 5 MG TABS 306476 PREDNISONE Inactive PREDNISONE 20 MG TAB 1 tablet daily for airway inflammation 02/25 PREDNISONE 20 MG TAB 958942 PREDNISONE Inactive SULFASALAZINE 500 MG ORAL TBEC 2 tabs BID SULFASALAZINE 500 MG ORAL TBEC 744734 SULFASALAZINE Inactive LASIX 20 MG TAB 1 tablet by mouth daily x 2 days LASIX 20 MG TAB 925729 FUROSEMIDE Inactive AMOXICILLIN 500 MG CAPS 2 po BID x 10 days AMOXICILLIN 500 MG CAPS 618474 AMOXICILLIN Inactive GLYBURIDE 5 MG TAB Take one by mouth daily GLYBURIDE 5 MG TAB 979971 GLYBURIDE Inactive AZITHROMYCIN 250 MG TABS 2 po qd x 1 day, then 1 po qd x 4 days AZITHROMYCIN 250 MG TABS 9801359 AZITHROMYCIN Inactive PREDNISONE 20 MG TAB 2 tabs daily for 3 days, 1 tab daily for 3 days, 1/2 tab daily for 2 days PREDNISONE 20 MG TAB 398171 PREDNISONE Inactive PREDNISONE 20 MG TAB 2 tabs daily for 5 days, then 1 daily for 5 days, then 0.5 for 4 days PREDNISONE 20 MG TAB 770816 PREDNISONE Inactive AZITHROMYCIN 250 MG TABS 2 po qd x 1 day, then 1 po qd x 4 days AZITHROMYCIN 250 MG TABS 6686004 AZITHROMYCIN Inactive PREDNISONE 20 MG TAB 2 tabs daily for 3 days, 1 tab daily for 3 days, 1/2 tab daily for 2 days PREDNISONE 20 MG TAB 648146 PREDNISONE Inactive TRIAMCINOLONE ACETONIDE 0.1 % OINT Apply to affected areas TID for up to 2 weeks TRIAMCINOLONE ACETONIDE 0.1 % OINT 3850424 TRIAMCINOLONE ACETONIDE Inactive Immunizations Vaccine Administration Date [...] E&M - 3141-9 214.6 [lb_av] Weight Measured Diagnostic Results Date Name [...] Panel - Chemistry sodium, serum 132 mmol/L 101-623 1953/10/26 carbon dioxide, venous blood 22.8 mmol/L 21.0-32.0 potassium, serum 5.4 mmol/L 3.5-5.2 chloride, serum 98 mmol/L 98-107 blood glucose 424 mg/dL 65-110 urea nitrogen, blood 40 mg/dL 7-18 creatinine, serum 2.26 mg/dL 0.55-1.30 alanine aminotransferase (SGPT), serum 29 U/L 12-78 aspartate aminotransferase (SGOT), serum 24 U/L 15-37 calcium, serum 8.6 mg/dL 8.5-10.1 bilirubin, serum, total 0.60 mg/dL 0.00-1.00 sodium, serum 137 mmol/L 868-360 6272/06/06 carbon dioxide, venous blood 24.9 mmol/L 21.0-32.0 [...] % 11.6-14.8 platelet count 274 10^3/MM^3 10*3/mm3 547-279 3867/06/06 leukocyte count, blood 7.4 10^3/MM^3 10*3/mm3 4.6-10.2 [...] Panel - Chemistry sodium, serum 139 mmol/L 474-897 9700/03/17 carbon dioxide, venous blood 29.0 mmol/L 21.0-32.0 [...] Rate - Chemistry sodium, serum 136 mmol/L 082-144 3264/09/18 carbon dioxide, venous blood 24.3 mmol/L 21.0-32.0 potassium, serum 5.1 mmol/L 3.5-5.2 chloride, serum 104 mmol/L 98-107 blood glucose 331 mg/dL 65-110 urea nitrogen, blood 43 mg/dL 7-18 creatinine, serum 2.57 mg/dL 0.55-1.30 alanine aminotransferase (SGPT), serum 27 U/L 12-78 aspartate aminotransferase (SGOT), serum 18 U/L 15-37 calcium, serum 8.4 mg/dL 8.5-10.1 Lab Report: HGBA1C - Chemistry hemoglobin A1C, blood, as % of total hemoglobin 7.7 % 4.3-6.0 Lab Report: HGBA1C, Basic Metabolic Panel - Chemistry hemoglobin A1C, blood, as % of total hemoglobin 8.5 % 4.3-6.0 sodium, serum 137 mmol/L 918-248 1755/02/12 potassium, serum 5.1 mmol/L 3.5-5.2 chloride, serum 103 mmol/L 98-107 carbon dioxide, venous blood 24.4 mmol/L 21.0-32.0 blood glucose 261 mg/dL 65-110 calcium, serum 9.0 mg/dL 8.5-10.1 urea nitrogen, blood 44 mg/dL 7-18 creatinine, serum 2.37 mg/dL 0.55-1.30 Lab Report: Lipid Panel - Chemistry cholesterol, serum 139 mg/dL 693-791 3053/09/10 triglyceride, serum, fasting 176 mg/dL 30-200 HDL cholesterol, serum 45 mg/dL 32-96 LDL cholesterol, serum 59 mg/dL 0-130 Lab Report: MICROALBUMIN - Chemistry albumin/creatinine ratio, urine 30 - 300 mg/g mg/g{creat} 0-29 Lab Report: MICROALBUMIN - Lab microalbumin, urine 30 0-19 Lab Report: Uric Acid - Chemistry uric acid, serum 6.3 mg/dL 2.6-7.2 Encounters Code Encounter Date Provider Facility CPT-07767 Level 3 Est. Patient 09:18:25 CDT Simon Castillo MD [facility] CPT-56807 Level 4 Est. Patient 11:51:23 CDT Simon Castillo MD [facility] CPT-66384 Level 4 Est. Patient 14:32:04 CDT Neto Oshea DO [facility] CPT-37192 Level 3 Est. Patient 08:41:43 CDT Giles Tatum [facility] CPT-29200 Level 3 Est. Patient 08:40:53 CDT Giles Tatum [facility] CPT-89376 Level 3 Est. Patient 08:36:52 CDT Giles Tatum [facility] CPT-39049 Level 3 Est. Patient 09:08:44 CDT Jonathanmeli Nashtico HEMPHILL [facility] CPT-06525 Level 4 Est. Patient 09:17:32 CHARGE AUTHORIZER Simon Castillo MD [facility] CPT-10380 Level 3 Est. Patient 11:22:22 CHARGE AUTHORIZER Simon Castillo MD [facility] CPT-14873 Level 3 Est. Patient 09:02:14 CDT Simon Castillo MD [facility] CPT-33248 Level 4 Est. Patient 08:47:25 CDT Simon Castillo MD [facility] CPT-87989 Level 4 Est. Patient 10:17:25 CDT Simon Castillo MD [facility] CPT-25576 Level 4 Est. Patient 10:10:09 CHARGE AUTHORIZER Simon Castillo MD [facility] CPT-02081 Level 4 Est. Patient 11:48:19 CDT Simon Castillo MD [facility] CPT-24712 Level 4 Est. Patient 08:59:29 CDT Simon Castillo MD [facility] CPT-28880 Level 4 Est. Patient 10:52:51 CHARGE AUTHORIZER Simon Castillo MD [facility] CPT-84192 Level 4 Est. Patient 11:50:30 CDT Simon Castillo MD [facility] CPT-80885 Level 4 Est. Patient 09:54:46 CDT Simon Castillo MD [facility] CPT-71516 Level 3 Est. Patient 11:10:14 CDT Simon Castillo MD [facility] CPT-64473 Level 4 Est. Patient 09:44:02 CDT Simon Castillo MD [facility] CPT-00331 Level 3 Est. Patient 09:27:48 CDT Simon Castillo MD [facility] CPT-28182 Level 3 Est. Patient 09:58:06 CHARGE AUTHORIZER Simon Castillo MD [facility] CPT-59921 Level 3 Est. Patient 09:51:35 CDT Simon Castillo MD [facility] Procedures Code Procedure Name Date Entry Date Standard Description CPT-G0438 Initial Annual Wellness Exam 08:57:30 CDT CPT-42593 Chest 2V Frontal and Lat - XRAY USE ONLY 09:00:14 CDT CPT-12853 Venipuncture Draw Fee 13:33:02 CDT CPT-07295 Bone Density 09:37:49 CHARGE AUTHORIZER CPT-08994 Fluzone High Dose 17:20:42 CDT CPT-53521 Prevnar 13 17:20:42 CDT CPT-91263 Administration 2+ single or combination vaccines inc oral 17:20:42 CDT CPT-58845 Administration single or combination vaccine inc oral 17 :20:42 CDT CPT-18938 Hand comp min 3V 09:24:38 CDT CPT-32799 Venipuncture Draw Fee 08:07:29 CHARGE AUTHORIZER CPT-40630 Venipuncture Draw Fee 09:02:51 CHARGE AUTHORIZER CPT-74209 Venipuncture Draw Fee 12:45:08 CHARGE AUTHORIZER CPT-91506 Venipuncture Draw Fee 09:25:31 CDT CPT-G0008 Administration of Influenza Virus Vaccine 14:41:29 CDT CPT-05383 Fluzone High-Dose Intramuscular Suspension 14:41:29 CDT CPT-Cryo Cryotherapy 11:48:20 CDT CPT-36868 EKG Trac and Interp 09:21:58 CDT CPT-68810 Chest 2V Frontal and Lat 09:21:58 CDT CPT-Cryo Cryotherapy 10:54:51 CHARGE AUTHORIZER CPT-27459 Administration 2+ single or combination vaccines inc oral 10:42:19 CDT CPT-33900 Administration single or combination vaccine inc oral 10 :42:19 CDT CPT-61447 Pneumovax 10:42:19 CDT CPT-84189 Influenza High Dose age 65+ 10:42:19 CDT CPT-75006 Administration single or combination vaccine inc oral 13 :18:54 CDT CPT-56424 Influenza High Dose age 65+ 13:18:54 CDT CPT-01133 Venipuncture Draw Fee 11:53:16 CDT CPT-40194 LS spine comp w obliq 11:03:13 CDT CPT-Cryo Cryotherapy 08:27:16 CHARGE AUTHORIZER CPT-62966 Administration single or combination vaccine inc oral 10 :56:34 CDT CPT-18216 Influenza High Dose age 65+ 10:56:34 CDT
--- OUTSIDE RECORDS SUMMARY | 2018-03-31 16:50 | XMS REPORT | Clinical Summary ---
Author Author Admin, E Organization [facility] Address Unknown Phone Unavailable Allergies, Adverse Reactions, Alerts Allergy Name Reaction Description Start Date Severity Status Provider No Known Allergies [facility] Conditions or Problems Problem Name Problem [...] MD Rheumatoid arthritis Steroid use, exterminator helper V58.65 Resolved Simon Castillo MD [...] Rheumatoid arthritis Pharyngitis 462 Active 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 B[employer]IN[employer] INSPECTOR Acute pharyngitis Dyspnea 786.09 Active 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 [employer] POIN[employer] INSPECTOR Other dyspnea and respiratory abnormality Peripheral edema 782.3 Active 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 B[employer] POINTS INSPECTOR Edema 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 Simon Castillo [...] Inactive Simon Castillo MD Steroid use, exterminator helper ICD-V58.65 Inactive Simon Castillo MD Hand pain, bilateral ICD-729.5 Kerry Castillo MD Medication List Medication Instructions Start Date Stop Date Generic Name NDC Status Provider Patient Instruction TRIAMCINOLONE ACETONIDE 0.1 % OINT Apply to affected areas TID for up to 2 weeks TRIAMCINOLONE ACETONIDE 24122684505 Active Simon Castillo MD Active LASIX 20 MG TAB 1 tablet by mouth daily x 2 days FUROSEMIDE 09692530876 No Longer Active Simon Castillo MD Active SULFASALAZINE 500 MG ORAL TBEC 2 tabs BID SULFASALAZINE 72777805772 No Longer Active Neto Oshea DO Active PREDNISONE 20 MG TAB 2 tabs daily for 3 days, 1 tab daily for 3 days, 1/2 tab daily for 2 days PREDNISONE 06189638256 No Longer Active Jilltriston Tatum APRN Active PREDNISONE 20 MG TAB 1 tablet daily for airway inflammation 02/25 PREDNISONE 95106879416 No Longer Active 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 BALL POINTS INSPECTOR Active CLARITIN 10 MG TAB 1 tablet by mouth daily as needed for allergies LORATADINE 69724569774 Active Giles Tatum BALL POINTS INSPECTOR Active AZITHROMYCIN 250 MG TABS 2 po qd x 1 day, then 1 po qd x 4 days AZITHROMYCIN 93166331099 No Longer Active 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 B[employer] POIN[employer] INSPECTOR Active GLIMEPIRIDE 2 MG ORAL TABS 1 po q a.m. GLIMEPIRIDE 50984690359 Active Simon Castillo MD Active HYDROCODONE-ACETAMINOPHEN 5-325 MG TABS 1 tab by mouth 8 hours as needed for pain HYDROCODONE-ACETAMINOPHEN 35743544508 Active Simon Castillo MD Active TRAMADOL HCL 50 MG TABS 1 po q6hr PRN Pain TRAMADOL HCL 80923898377 No Longer Active Simon Castillo MD Active PREDNISONE 5 MG TAB 1-2 tabs daily for rheumatoid arthritis PREDNISONE 62922198089 Active Simon Castillo MD Active PREDNISONE 5 MG TABS 1 po qod PREDNISONE 19863657717 No Longer Active Simon Castillo MD Active SYMBICORT 160-4.5 MCG/ACT AERO 2 puff BID BUDESONIDE- FORMOTEROL FUMARATE 37999505915 No Longer Active Simon Castillo MD Active FLONASE 50 MCG/ACT SUSP 2 puffs in each nostril daily FLUTICASONE PROPIONATE 09035211252 No Longer Active Simon Castillo MD Active PREDNISONE 20 MG TAB 2 tabs daily for 5 days, then 1 daily for 5 days PREDNISONE 94053950323 No Longer Active Simon Castillo MD Active PREDNISONE 20 MG TAB 2 tabs daily for 5 days, then 1 daily for 5 days, then 0.5 for 4 days PREDNISONE 20502432675 No Longer Active Simon Castillo MD Active CLOTRIMAZOLE 1 % EXT CREA Apply to affected area of feet twice daily PRN Rash CLOTRIMAZOLE 46390236638 Active Simon Castillo MD Active PREDNISONE 20 MG TAB 2 tabs daily for 3 days, 1 tab daily for 3 days, 1/2 tab daily for 2 days PREDNISONE 70748600400 No Longer Active Simon Castillo MD Active AZITHROMYCIN 250 MG TABS 2 po qd x 1 day, then 1 po qd x 4 days AZITHROMYCIN 84656048156 No Longer Active Simon Castillo MD Active LISINOPRIL 10 MG TABS 1 tablet by mouth daily LISINOPRIL 34126634330 Active Simon Castillo MD Active CARVEDILOL 6.25 MG TABS 1 po BID CARVEDILOL 52680050102 Active Simon Castillo MD Active LISINOPRIL-HYDROCHLOROTHIAZIDE 20-12.5 MG TABS 1/2 tab by mouth daily LISINOPRIL-HYDROCHLOROTHIAZIDE 73814254354 No Longer Active Simon Castillo MD Active TRAMADOL HCL 50 MG TABS 1-2 tablets every 6 hours as needed for pain TRAMADOL HCL 60523125756 Active Giles Tatum APRN Active PREDNISONE 5 MG TAB Take one po qod PREDNISONE 55720455719 No Longer Active Simon Castillo MD Active GLYBURIDE 5 MG TAB Take one by mouth daily GLYBURIDE 98878519196 No Longer Active Simon Castillo MD Active LEVAQUIN 750 MG TABS 1 po qod x 5 doses LEVOFLOXACIN 11344177299 No Longer Active Simon Castillo MD Active CETIRIZINE HCL 10 MG TABS 1 po qd as needed for allergies CETIRIZINE HCL 46586687227 No Longer Active Simon Castillo MD Active FISH OIL 1000 MG CPDR 1 pill by mouth twice daily for cholesterol OMEGA -3 FATTY ACIDS 65180578843 Active Simon Castillo MD Active BILBERRY CAPS 1 tab daily BILBERRY (VACCINIUM MYRTILLUS) CAPS 84874228239 Active Simon Castillo MD Active ATENOLOL 50 MG TABS Take one by mouth daily ATENOLOL 87229698334 No Longer Active Simon Castillo MD Active FLONASE 50 MCG/ACT SUSP 2 puffs in each nostril daily FLUTICASONE PROPIONATE 08559862929 No Longer Active Simon Castillo MD Active GLYBURIDE 5 MG TAB Take one by mouth daily GLYBURIDE 54982562028 No Longer Active Simon Castillo MD Active SYMBICORT 80-4.5 MCG/ACT AERO 2 puffs twice a day BUDESONIDE-FORMOTEROL FUMARATE 55964650127 No Longer Active Simon Castillo MD Active PREDNISONE 20 MG TAB 2 tabs daily for 4 days, 1 tab daily for 4 days, 1/2 tab daily for 4 days PREDNISONE 88315157369 No Longer Active Simon Castillo MD Active AMOXICILLIN 500 MG CAPS 2 po BID x 10 days AMOXICILLIN 30011005197 No Longer Active Simon Castillo MD Active METFORMIN HCL 1000 MG TABS 1 by mounth twice a day METFORMIN HCL 76750030905 No Longer Active Simon Castillo MD Active LUTEIN-ZEAXANTHIN 6-1 MG TABS Take 2 by mouth daily LUTEIN-ZEAXANTHIN 98287726521 Active Simon Castillo MD Active IBUPROFEN 800 MG TABS Take 1 tab every 6 hrs prn IBUPROFEN 07298968952 No Longer Active Simon Castillo MD Active GLYBURIDE 2.5 MG TABS Take one by mouth daily GLYBURIDE 50328226585 No Longer Active Simon Castillo MD Active LANCETS MISC 2 qd LANCETS 24745510075 Active Pamela Conde Active ACACIA CONTOUR TEST STRP Use with testing twice daily GLUCOSE BLOOD 69860811019 Active Simon Castillo MD Active ACACIA ASPIRIN 325 MG TABS Take one by mouth daily ASPIRIN 02828736087 Active Pamela Conde Active GLYBURIDE 2.5 MG TABS Take one by mouth daily GLYBURIDE 2.5 MG TABS 018795 GLYBURIDE Inactive PREDNISONE 20 MG TAB 2 tabs daily for 4 days, 1 tab daily for 4 days, 1/2 tab daily for 4 days PREDNISONE 20 MG TAB 020367 PREDNISONE Inactive SYMBICORT 80-4.5 MCG/ACT AERO 2 puffs twice a day SYMBICORT 80-4.5 MCG/ACT AERO BUDESONIDE-FORMOTEROL FUMARATE Inactive FLONASE 50 MCG/ACT SUSP 2 puffs in each nostril daily FLONASE 50 MCG/ACT SUSP 334824 FLUTICASONE PROPIONATE Inactive ATENOLOL 50 MG TABS Take one by mouth daily ATENOLOL 50 MG TABS 842324 ATENOLOL Inactive CETIRIZINE HCL 10 MG TABS 1 po qd as needed for allergies CETIRIZINE HCL 10 MG TABS 1137064 CETIRIZINE HCL Inactive LEVAQUIN 750 MG TABS 1 po qod x 5 doses LEVAQUIN 750 MG TABS 449372 LEVOFLOXACIN Inactive GLYBURIDE 5 MG TAB Take one by mouth daily GLYBURIDE 5 MG TAB 147427 GLYBURIDE Inactive PREDNISONE 5 MG TAB Take one po qod PREDNISONE 5 MG TAB 824920 PREDNISONE Inactive PREDNISONE 20 MG TAB 2 tabs daily for 5 days, then 1 daily for 5 days PREDNISONE 20 MG TAB 142395 PREDNISONE Inactive FLONASE 50 MCG/ACT SUSP 2 puffs in each nostril daily FLONASE 50 MCG/ACT SUSP 909614 FLUTICASONE PROPIONATE Inactive SYMBICORT 160-4.5 MCG/ACT AERO 2 puff BID SYMBICORT 160-4.5 MCG/ACT AERO BUDESONIDE-FORMOTEROL FUMARATE Inactive PREDNISONE 5 MG TABS 1 po qod PREDNISONE 5 MG TABS 562004 PREDNISONE Inactive PREDNISONE 20 MG TAB 1 tablet daily for airway inflammation 02/25 PREDNISONE 20 MG TAB 776900 PREDNISONE Inactive SULFASALAZINE 500 MG ORAL TBEC 2 tabs BID SULFASALAZINE 500 MG ORAL TBEC 240970 SULFASALAZINE Inactive LASIX 20 MG TAB 1 tablet by mouth daily x 2 days LASIX 20 MG TAB 330476 FUROSEMIDE Inactive AMOXICILLIN 500 MG CAPS 2 po BID x 10 days AMOXICILLIN 500 MG CAPS 834045 AMOXICILLIN Inactive GLYBURIDE 5 MG TAB Take one by mouth daily GLYBURIDE 5 MG TAB 933758 GLYBURIDE Inactive AZITHROMYCIN 250 MG TABS 2 po qd x 1 day, then 1 po qd x 4 days AZITHROMYCIN 250 MG TABS 2794650 AZITHROMYCIN Inactive PREDNISONE 20 MG TAB 2 tabs daily for 3 days, 1 tab daily for 3 days, 1/2 tab daily for 2 days PREDNISONE 20 MG TAB 311946 PREDNISONE Inactive PREDNISONE 20 MG TAB 2 tabs daily for 5 days, then 1 daily for 5 days, then 0.5 for 4 days PREDNISONE 20 MG TAB 870191 PREDNISONE Inactive AZITHROMYCIN 250 MG TABS 2 po qd x 1 day, then 1 po qd x 4 days AZITHROMYCIN 250 MG TABS 4358812 AZITHROMYCIN Inactive PREDNISONE 20 MG TAB 2 tabs daily for 3 days, 1 tab daily for 3 days, 1/2 tab daily for 2 days PREDNISONE 20 MG TAB 208879 PREDNISONE Inactive Immunizations Vaccine Administration Date Value [...] Panel - Chemistry sodium, serum 132 mmol/L 037-318 5744/10/26 carbon dioxide, venous blood 22.8 mmol/L 21.0-32.0 potassium, serum 5.4 mmol/L 3.5-5.2 chloride, serum 98 mmol/L 98-107 blood glucose 424 mg/dL 65-110 urea nitrogen, blood 40 mg/dL 7-18 creatinine, serum 2.26 mg/dL 0.55-1.30 alanine aminotransferase (SGPT), serum 29 U/L 12-78 aspartate aminotransferase (SGOT), serum 24 U/L 15-37 calcium, serum 8.6 mg/dL 8.5-10.1 bilirubin, serum, total 0.60 mg/dL 0.00-1.00 sodium, serum 137 mmol/L 841-809 8684/06/06 carbon dioxide, venous blood 24.9 mmol/L 21.0-32.0 [...] % 11.6-14.8 platelet count 210 10^3/MM^3 10*3/mm3 064-338 3261/10/26 leukocyte count, blood 10.3 10^3/MM^3 10*3/mm3 4.6-10.2 [...] Panel - Chemistry sodium, serum 139 mmol/L 390-815 5128/03/17 carbon dioxide, venous blood 29.0 mmol/L 21.0-32.0 [...] Rate - Chemistry sodium, serum 136 mmol/L 585-650 3430/09/18 carbon dioxide, venous blood 24.3 mmol/L 21.0-32.0 [...] HGBA1C - Chemistry sodium, serum 139 mmol/L 866-614 8464/07/09 potassium, serum 5.4 mmol/L 3.5-5.2 chloride, serum [...] 8.5 % 4.3-6.0 sodium, serum 137 mmol/L 404-133 3024/02/12 potassium, serum 5.1 mmol/L 3.5-5.2 chloride, serum 103 mmol/L 98-107 carbon dioxide, venous blood 24.4 mmol/L 21.0-32.0 blood glucose 261 mg/dL 65-110 calcium, serum 9.0 mg/dL 8.5-10.1 urea nitrogen, blood 44 mg/dL 7-18 creatinine, serum 2.37 mg/dL 0.55-1.30 Lab Report: Lipid Panel - Chemistry cholesterol, serum 139 mg/dL 451-697 5337/09/10 triglyceride, serum, fasting 176 mg/dL 30-200 HDL cholesterol, serum 45 mg/dL 32-96 LDL cholesterol, serum 59 mg/dL 0-130 Lab Report: MICROALBUMIN - Chemistry albumin/creatinine ratio, urine 30 - 300 mg/g mg/g{creat} 0-29 Lab Report: MICROALBUMIN - Lab microalbumin, urine 30 0-19 Lab Report: Uric Acid - Chemistry uric acid, serum 6.3 mg/dL 2.6-7.2 Encounters Code Encounter Date Provider Facility CPT-34656 Level 3 Est. Patient 09:18:25 CDT Simon Castillo MD [facility] CPT-57978 Level 4 Est. Patient 11:51:23 CDT Simon Castillo MD [facility] CPT-87686 Level 4 Est. Patient 14:32:04 CDT Neto Oshea DO [facility] CPT-79592 Level 3 Est. Patient 08:41:43 CDT Giles Nashtico [facility] CPT-77836 Level 3 Est. Patient 08:40:53 CDT Jillina Nashzell [facility] CPT-05644 Level 3 Est. Patient 08:36:52 CDT Jonathanllina Nashzell [facility] CPT-74378 Level 3 Est. Patient 09:08:44 CDT Jimeli Nashamayal [facility] CPT-89314 Level 4 Est. Patient 09:17:32 RN CLINICAL DOCUMENTATION Simon Castillo MD [facility] CPT-28758 Level 3 Est. Patient 11:22:22 RN CLINICAL DOCUMENTATION Simon Castillo MD [facility] CPT-72588 Level 3 Est. Patient 09:02:14 CDT Simon Castillo MD [facility] CPT-60033 Level 4 Est. Patient 08:47:25 CDT Simon Castillo MD [facility] CPT-17043 Level 4 Est. Patient 10:17:25 CDT Simon Castillo MD [facility] CPT-81276 Level 4 Est. Patient 10:10:09 RN CLINICAL DOCUMENTATION Simon Castillo MD [facility] CPT-20374 Level 4 Est. Patient 11:48:19 CDT Simon Castillo MD [facility] CPT-34704 Level 4 Est. Patient 08:59:29 CDT Simon Castillo MD [facility] CPT-61075 Level 4 Est. Patient 10:52:51 RN CLINICAL DOCUMENTATION Simon Castillo MD [facility] CPT-06563 Level 4 Est. Patient 11:50:30 CDT Simon Castillo MD [facility] CPT-98208 Level 4 Est. Patient 09:54:46 CDT Simon Castillo MD [facility] CPT-61430 Level 3 Est. Patient 11:10:14 CDT Simon Castillo MD [facility] CPT-70656 Level 4 Est. Patient 09:44:02 CDT Simon Castillo MD [facility] CPT-20344 Level 3 Est. Patient 09:27:48 CDT Simon Castillo MD [facility] CPT-88890 Level 3 Est. Patient 09:58:06 RN CLINICAL DOCUMENTATION Simon Castillo MD [facility] CPT-72035 Level 3 Est. Patient 09:51:35 CDT Simon Castillo MD [facility] Procedures Code Procedure Name Date Entry Date Standard Description CPT-G0438 Initial Annual Wellness Exam 08:57:30 CDT CPT-02440 Chest 2V Frontal and Lat - XRAY USE ONLY 09:00:14 CDT CPT-38895 Venipuncture Draw Fee 13:33:02 CDT CPT-22621 Bone Density 09:37:49 RN CLINICAL DOCUMENTATION CPT-74662 Fluzone High Dose 17:20:42 CDT CPT-33203 Prevnar 13 17:20:42 CDT CPT-54650 Administration 2+ single or combination vaccines inc oral 17:20:42 CDT CPT-45774 Administration single or combination vaccine inc oral 17 :20:42 CDT CPT-53554 Hand comp min 3V 09:24:38 CDT CPT-81159 Venipuncture Draw Fee 08:07:29 RN CLINICAL DOCUMENTATION CPT-05750 Venipuncture Draw Fee 09:02:51 RN CLINICAL DOCUMENTATION CPT-93500 Venipuncture Draw Fee 12:45:08 RN CLINICAL DOCUMENTATION CPT-55545 Venipuncture Draw Fee 09:25:31 CDT CPT-G0008 Administration of Influenza Virus Vaccine 14:41:29 CDT CPT-20495 Fluzone High-Dose Intramuscular Suspension 14:41:29 CDT CPT-Cryo Cryotherapy 11:48:20 CDT CPT-34742 EKG Trac and Interp 09:21:58 CDT CPT-22126 Chest 2V Frontal and Lat 09:21:58 CDT CPT-Cryo Cryotherapy 10:54:51 RN CLINICAL DOCUMENTATION CPT-40847 Administration 2+ single or combination vaccines inc oral 10:42:19 CDT CPT-73052 Administration single or combination vaccine inc oral 10 :42:19 CDT CPT-90093 Pneumovax 10:42:19 CDT CPT-18623 Influenza High Dose age 65+ 10:42:19 CDT CPT-79922 Administration single or combination vaccine inc oral 13 :18:54 CDT CPT-30988 Influenza High Dose age 65+ 13:18:54 CDT CPT-11755 Venipuncture Draw Fee 11:53:16 CDT CPT-05132 LS spine comp w obliq 11:03:13 CDT CPT-Cryo Cryotherapy 08:27:16 RN CLINICAL DOCUMENTATION CPT-73704 Administration single or combination vaccine inc oral 10 :56:34 CDT CPT-68477 Influenza High Dose age 65+ 10:56:34 CDT
--- OUTSIDE RECORDS SUMMARY | 2018-03-31 16:51 | XMS REPORT | Clinical Summary ---
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 Kerry Castillo MD Hand pain, bilateral [...] MG ORAL TABS 1 po qd BUMETANIDE 54233291106 Active Simon Castillo MD Active AUGMENTIN 875-125 MG ORAL TABS 1 po BID x 10 days AMOXICILLIN-POT CLAVULANATE 65798856201 Active Simon Castillo MD Active PIOGLITAZONE HCL 30 MG ORAL TABS 1 po qd PIOGLITAZONE HCL 37491110118 Active Simon Castillo MD Active GLIMEPIRIDE 4 MG ORAL TABS 1 po BID GLIMEPIRIDE 23157797289 Active Simon Castillo MD Active ASPIRIN EC 81 MG ORAL TBEC 1 po qd ASPIRIN 62022999028 Active Simon Castillo MD Active CLOTRIMAZOLE 1 % EXT CREA Apply to affected area of feet twice daily PRN Rash CLOTRIMAZOLE 26197338690 No Longer Active Simon Castillo MD Active PREDNISONE 5 MG TAB 1 po BID PREDNISONE 11553339462 Active Simon Castillo MD Active FISH OIL 1000 MG CPDR 1 po BID OMEGA-3 FATTY ACIDS 12562445438 Active Simon Castillo MD Active LISINOPRIL 10 MG TABS 1 p qd LISINOPRIL 38525811819 Active Simon Castillo MD Active CLARITIN 10 MG TAB 1 tablet by mouth daily as needed for allergies LORATADINE 46273234987 No Longer Active Simon Castillo MD Active TRIAMCINOLONE ACETONIDE 0.1 % OINT Apply to affected areas TID for up to 2 weeks TRIAMCINOLONE ACETONIDE 67471522854 No Longer Active Simon Castillo MD Active LASIX 20 MG TAB 1 tablet by mouth daily x 2 days FUROSEMIDE 56971860126 No Longer Active Simon Castillo MD Active SULFASALAZINE 500 MG ORAL TBEC 2 tabs BID SULFASALAZINE 41590051922 No Longer Active Neto Oshea DO Active PREDNISONE 20 MG TAB 2 tabs daily for 3 days, 1 tab daily for 3 days, 1/2 tab daily for 2 days PREDNISONE 26229211029 No Longer Active 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 [employer]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 ASSEMBLER 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 PREDNISONE 20 MG TAB 1 tablet daily for airway inflammation 02/25 PREDNISONE 28653633095 No Longer Active 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 [employer]SEMBLER Active AZITHROMYCIN 250 MG TABS 2 po qd x 1 day, then 1 po qd x 4 days AZITHROMYCIN 39998015770 No Longer Active 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 [employer] UP ASSEMBLER 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 HYDROCODONE-ACETAMINOPHEN 5-325 MG TABS 1 tab by mouth 8 hours as needed for pain HYDROCODONE-ACETAMINOPHEN 78824010308 Active Simon Castillo MD Active TRAMADOL HCL 50 MG TABS 1 po q6hr PRN Pain TRAMADOL HCL 37376670807 No Longer Active Simon Castillo MD Active PREDNISONE 5 MG TABS 1 po qod PREDNISONE 05131771510 No Longer Active Simon Castillo MD Active SYMBICORT 160-4.5 MCG/ACT AERO 2 puff BID BUDESONIDE- FORMOTEROL FUMARATE 77275005920 No Longer Active Simon Castillo MD Active FLONASE 50 MCG/ACT SUSP 2 puffs in each nostril daily FLUTICASONE PROPIONATE 72222094534 No Longer Active Simon Castillo MD Active PREDNISONE 20 MG TAB 2 tabs daily for 5 days, then 1 daily for 5 days PREDNISONE 76416894844 No Longer Active Simon Castillo MD Active PREDNISONE 20 MG TAB 2 tabs daily for 5 days, then 1 daily for 5 days, then 0.5 for 4 days PREDNISONE 44853342316 No Longer Active Simon Castillo MD Active PREDNISONE 20 MG TAB 2 tabs daily for 3 days, 1 tab daily for 3 days, 1/2 tab daily for 2 days PREDNISONE 92976207512 No Longer Active Simon Castillo MD Active AZITHROMYCIN 250 MG TABS 2 po qd x 1 day, then 1 po qd x 4 days AZITHROMYCIN 09656388293 No Longer Active Simon Castillo MD Active CARVEDILOL 6.25 MG TABS 1 po BID CARVEDILOL 68019403264 Active Simon Castillo MD Active LISINOPRIL-HYDROCHLOROTHIAZIDE 20-12.5 MG TABS 1/2 tab by mouth daily LISINOPRIL-HYDROCHLOROTHIAZIDE 28302577068 No Longer Active Simon Castillo MD Active TRAMADOL HCL 50 MG TABS 1-2 tablets every 6 hours as needed for pain TRAMADOL HCL 02586126412 Active Giles Tatum APRN Active PREDNISONE 5 MG TAB Take one po qod PREDNISONE 44569153827 No Longer Active Simon Castillo MD Active GLYBURIDE 5 MG TAB Take one by mouth daily GLYBURIDE 40463116150 No Longer Active Simon Castillo MD Active LEVAQUIN 750 MG TABS 1 po qod x 5 doses LEVOFLOXACIN 73022644606 No Longer Active Simon Castillo MD Active CETIRIZINE HCL 10 MG TABS 1 po qd as needed for allergies CETIRIZINE HCL 35575190607 No Longer Active Simon Castillo MD Active BILBERRY CAPS 1 tab daily BILBERRY (VACCINIUM MYRTILLUS) CAPS 72886121329 Active Simon Castillo MD Active ATENOLOL 50 MG TABS Take one by mouth daily ATENOLOL 68529861946 No Longer Active Simon Castillo MD Active FLONASE 50 MCG/ACT SUSP 2 puffs in each nostril daily FLUTICASONE PROPIONATE 53931992990 No Longer Active Simon Castillo MD Active GLYBURIDE 5 MG TAB Take one by mouth daily GLYBURIDE 94290378531 No Longer Active Simon Castillo MD Active SYMBICORT 80-4.5 MCG/ACT AERO 2 puffs twice a day BUDESONIDE-FORMOTEROL FUMARATE 85396798961 No Longer Active Simon Castillo MD Active PREDNISONE 20 MG TAB 2 tabs daily for 4 days, 1 tab daily for 4 days, 1/2 tab daily for 4 days PREDNISONE 17758636043 No Longer Active Simon Castillo MD Active AMOXICILLIN 500 MG CAPS 2 po BID x 10 days AMOXICILLIN 04010881625 No Longer Active Simon Castillo MD Active METFORMIN HCL 1000 MG TABS 1 by mounth twice a day METFORMIN HCL 93882630633 No Longer Active Simon Castillo MD Active LUTEIN-ZEAXANTHIN 6-1 MG TABS Take 2 by mouth daily LUTEIN-ZEAXANTHIN 51696468124 Active Simon Castillo MD Active IBUPROFEN 800 MG TABS Take 1 tab every 6 hrs prn IBUPROFEN 60920345168 No Longer Active Simon Castillo MD Active GLYBURIDE 2.5 MG TABS Take one by mouth daily GLYBURIDE 61103982101 No Longer Active Simon Castillo MD Active LANCETS MISC 2 qd LANCETS 87090107821 Active Pamela Conde Active ACACIA CONTOUR TEST STRP Use with testing twice daily GLUCOSE BLOOD 49054726534 Active Simon Castillo MD Active GLYBURIDE 2.5 MG TABS Take one by mouth daily GLYBURIDE 2.5 MG TABS 456210 GLYBURIDE Inactive PREDNISONE 20 MG TAB 2 tabs daily for 4 days, 1 tab daily for 4 days, 1/2 tab daily for 4 days PREDNISONE 20 MG TAB 248466 PREDNISONE Inactive SYMBICORT 80-4.5 MCG/ACT AERO 2 puffs twice a day SYMBICORT 80-4.5 MCG/ACT AERO BUDESONIDE-FORMOTEROL FUMARATE Inactive FLONASE 50 MCG/ACT SUSP 2 puffs in each nostril daily FLONASE 50 MCG/ACT SUSP 6222736 FLUTICASONE PROPIONATE Inactive ATENOLOL 50 MG TABS Take one by mouth daily ATENOLOL 50 MG TABS 511328 ATENOLOL Inactive CETIRIZINE HCL 10 MG TABS 1 po qd as needed for allergies CETIRIZINE HCL 10 MG TABS 4131548 CETIRIZINE HCL Inactive LEVAQUIN 750 MG TABS 1 po qod x 5 doses LEVAQUIN 750 MG TABS 002454 LEVOFLOXACIN Inactive GLYBURIDE 5 MG TAB Take one by mouth daily GLYBURIDE 5 MG TAB 293090 GLYBURIDE Inactive PREDNISONE 5 MG TAB Take one po qod PREDNISONE 5 MG TAB 207884 PREDNISONE Inactive PREDNISONE 20 MG TAB 2 tabs daily for 5 days, then 1 daily for 5 days PREDNISONE 20 MG TAB 701522 PREDNISONE Inactive FLONASE 50 MCG/ACT SUSP 2 puffs in each nostril daily FLONASE 50 MCG/ACT SUSP 6139913 FLUTICASONE PROPIONATE Inactive SYMBICORT 160-4.5 MCG/ACT AERO 2 puff BID SYMBICORT 160-4.5 MCG/ACT AERO BUDESONIDE-FORMOTEROL FUMARATE Inactive PREDNISONE 5 MG TABS 1 po qod PREDNISONE 5 MG TABS 053744 PREDNISONE Inactive PREDNISONE 20 MG TAB 1 tablet daily for airway inflammation 02/25 PREDNISONE 20 MG TAB 520678 PREDNISONE Inactive SULFASALAZINE 500 MG ORAL TBEC 2 tabs BID SULFASALAZINE 500 MG ORAL [facility] 669375 SULFASALAZINE Inactive LASIX 20 MG TAB 1 tablet by mouth daily x 2 days LASIX 20 MG TAB 461975 FUROSEMIDE Inactive CLARITIN 10 MG TAB 1 tablet by mouth daily as needed for allergies CLARITIN 10 MG TAB 086166 LORATADINE Inactive CLOTRIMAZOLE 1 % EXT CREA Apply to affected area of feet twice daily PRN Rash CLOTRIMAZOLE 1 % EXT CREA 856189 CLOTRIMAZOLE Inactive AMOXICILLIN 500 MG CAPS 2 po BID x 10 days AMOXICILLIN 500 MG CAPS 127516 AMOXICILLIN Inactive GLYBURIDE 5 MG TAB Take one by mouth daily GLYBURIDE 5 MG TAB 489822 GLYBURIDE Inactive AZITHROMYCIN 250 MG TABS 2 po qd x 1 day, then 1 po qd x 4 days AZITHROMYCIN 250 MG TABS 8309953 AZITHROMYCIN Inactive PREDNISONE 20 MG TAB 2 tabs daily for 3 days, 1 tab daily for 3 days, 1/2 tab daily for 2 days PREDNISONE 20 MG TAB 654024 PREDNISONE Inactive PREDNISONE 20 MG TAB 2 tabs daily for 5 days, then 1 daily for 5 days, then 0.5 for 4 days PREDNISONE 20 MG TAB 898346 PREDNISONE Inactive AZITHROMYCIN 250 MG TABS 2 po qd x 1 day, then 1 po qd x 4 days AZITHROMYCIN 250 MG TABS 8689152 AZITHROMYCIN Inactive PREDNISONE 20 MG TAB 2 tabs daily for 3 days, 1 tab daily for 3 days, 1/2 tab daily for 2 days PREDNISONE 20 MG TAB 812691 PREDNISONE Inactive TRIAMCINOLONE ACETONIDE 0.1 % OINT Apply to affected areas TID for up to 2 weeks TRIAMCINOLONE ACETONIDE 0.1 % OINT 9847646 TRIAMCINOLONE ACETONIDE Inactive Immunizations Vaccine Administration Date [...] Peptide - Chemistry sodium, serum 142 mmol/L 610-014 3175/07/18 potassium, serum 5.0 mmol/L 3.5-5.2 chloride, serum [...] Panel - Chemistry sodium, serum 140 mmol/L 897-627 7235/07/13 carbon dioxide, venous blood 23.7 mmol/L 21.0-32.0 [...] Panel - Chemistry cholesterol, serum 126 mg/dL 476-250 2823/02/07 triglyceride, serum, fasting 83 mg/dL 30-200 HDL cholesterol, serum 70 mg/dL 32-96 LDL cholesterol, serum 39 mg/dL 0-130 hemoglobin A1C, blood, as % of total hemoglobin 8.3 % 4.3-6.0 sodium, serum 141 mmol/L 430-283 6094/02/07 carbon dioxide, venous blood 26.0 mmol/L 21.0-32.0 [...] 0.00-1.00 Encounters Code Encounter Date Provider Facility CPT-16773 Level 4 Est. Patient 08:48:38 CDT Simon Castillo MD [facility] CPT-54604 Level 4 Est. Patient 09:54:08 CDT Simon Castillo MD [facility] CPT-73076 Level 4 Est. Patient 16:11:23 CDT Simon Castillo MD [facility] CPT-42514 Level 4 Est. Patient 09:29:28 SIMULATION ENGINEER Simon Castillo MD [facility] CPT-85874 Level 3 Est. Patient 09:18:25 CDT Simon Castillo MD [facility] CPT-89003 Level 4 Est. Patient 11:51:23 CDT Simon Castillo MD [facility] CPT-71866 Level 4 Est. Patient 14:32:04 CDT Neto Oshea DO [facility] CPT-22967 Level 3 Est. Patient 08:41:43 CDT Jonathanmeli Lolyalejandrina [facility] [place][note 2] CPT-37494 Level 3 Est. Patient 08:40:53 CDT Jonathanllina Nashzell [facility] [place][note 2] CPT-96840 Level 3 Est. Patient 08:36:52 CDT Giles Salcidol [facility] [place][note 2] CPT-92840 Level 3 Est. Patient 09:08:44 CDT Jonathanviratriston Salcidol [facility] [place][note 2] CPT-90574 Level 4 Est. Patient 09:17:32 SIMULATION ENGINEER Simon Castillo MD [facility] CPT-61104 Level 3 Est. Patient 11:22:22 SIMULATION ENGINEER Simon Castillo MD [facility] CPT-01661 Level 3 Est. Patient 09:02:14 CDT Simon Castillo MD [facility] CPT-37980 Level 4 Est. Patient 08:47:25 CDT Simon Castillo MD [facility] CPT-04951 Level 4 Est. Patient 10:17:25 CDT Simon Castillo MD [facility] CPT-61978 Level 4 Est. Patient 10:10:09 SIMULATION ENGINEER Simon Castillo MD [facility] CPT-49474 Level 4 Est. Patient 11:48:19 CDT Simon Castillo MD [facility] CPT-67943 Level 4 Est. Patient 08:59:29 CDT Simon Castillo MD [facility] CPT-58033 Level 4 Est. Patient 10:52:51 SIMULATION ENGINEER Simon Castillo MD [facility] CPT-09014 Level 4 Est. Patient 11:50:30 CDT Simon Castillo MD [facility] CPT-55992 Level 4 Est. Patient 09:54:46 CDT Simon Castillo MD [facility] CPT-92627 Level 3 Est. Patient 11:10:14 CDT Simon Castillo MD [facility] CPT-20500 Level 4 Est. Patient 09:44:02 CDT Simon Castillo MD [facility] CPT-13476 Level 3 Est. Patient 09:27:48 CDT Simon Castillo MD [facility] CPT-78739 Level 3 Est. Patient 09:58:06 SIMULATION ENGINEER Simon Castillo MD [facility] CPT-49587 Level 3 Est. Patient 09:51:35 CDT Simon Castillo MD [facility] Procedures Code Procedure Name Date Entry Date Standard Description CPT-G0439 Subsequent Annual Wellness Exam 09:41:17 CDT CPT-41889 Lipid - LAB USE ONLY 17:15:33 CDT CPT-37183 HGBA1C - LAB USE ONLY 17:15:33 CDT CPT-59591 CMP - LAB USE ONLY 17:15:33 CDT CPT-56056 Venipuncture Draw Fee 17:15:33 CDT CPT-TCM Transitional Care Mgmt-High 11:01:28 SIMULATION ENGINEER CPT-69390 First Vx - Ix admin for Medicare patients 17:33:39 CDT CPT-82844 Fluzone High-Dose Intramuscular Suspension 17:33:39 CDT CPT-G0438 Initial Annual Wellness Exam 08:57:30 CDT CPT-54536 Chest 2V Frontal and Lat - XRAY USE ONLY 09:00:14 CDT CPT-17865 Venipuncture Draw Fee 13:33:02 CDT CPT-77117 Bone Density 09:37:49 SIMULATION ENGINEER CPT-91101 Fluzone High Dose 17:20:42 CDT CPT-39634 Prevnar 13 17:20:42 CDT CPT-42206 Administration 2+ single or combination vaccines inc oral 17:20:42 CDT CPT-81402 Administration single or combination vaccine inc oral 17 :20:42 CDT CPT-83473 Hand comp min 3V 09:24:38 CDT CPT-72564 Venipuncture Draw Fee 08:07:29 SIMULATION ENGINEER CPT-42478 Venipuncture Draw Fee 09:02:51 SIMULATION ENGINEER CPT-02102 Venipuncture Draw Fee 12:45:08 SIMULATION ENGINEER CPT-57404 Venipuncture Draw Fee 09:25:31 CDT CPT-G0008 Administration of Influenza Virus Vaccine 14:41:29 CDT CPT-94170 Fluzone High-Dose Intramuscular Suspension 14:41:29 CDT CPT-Cryo Cryotherapy 11:48:20 CDT CPT-92284 EKG Trac and Interp 09:21:58 CDT CPT-91945 Chest 2V Frontal and Lat 09:21:58 CDT CPT-Cryo Cryotherapy 10:54:51 SIMULATION ENGINEER CPT-46936 Administration 2+ single or combination vaccines inc oral 10:42:19 CDT CPT-81575 Administration single or combination vaccine inc oral 10 :42:19 CDT CPT-52447 Pneumovax 10:42:19 CDT CPT-10597 Influenza High Dose age 65+ 10:42:19 CDT CPT-40731 Administration single or combination vaccine inc oral 13 :18:54 CDT CPT-34526 Influenza High Dose age 65+ 13:18:54 CDT CPT-88996 Venipuncture Draw Fee 11:53:16 CDT CPT-01507 LS spine comp w obliq 11:03:13 CDT CPT-Cryo Cryotherapy 08:27:16 SIMULATION ENGINEER CPT-81375 Administration single or combination vaccine inc oral 10 :56:34 CDT CPT-49928 Influenza High Dose age 65+ 10:56:34 CDT
--- OUTSIDE RECORDS SUMMARY | 2018-03-31 16:52 | XMS REPORT | Clinical Summary ---
Author Author Admin, E Organization [employer] Address Unknown Phone Unavailable Allergies, Adverse Reactions, [...] Castillo MD Rheumatoid arthritis Steroid use, long chain beamer V58.65 Resolved Simon Castillo MD Long-term (current) [...] bilateral ICD-729.5 Kerry Castillo MD Steroid use, residential ICD-V58.65 Kerry Castillo MD Hand pain, bilateral [...] MG ORAL TABLET 1 po qd FUROSEMIDE 76261963439 Active Simon Castillo MD Active BACTRIM DS 800-160 MG ORAL TABLET 1 po BID x 7 days SULFAMETHOXAZOLE-TRIMETHOPRIM 48073400381 Active Simon Castillo MD Active AZITHROMYCIN 250 MG ORAL TABLET 2 po qd x 1, then 1 po qd x 4 AZITHROMYCIN 39183886826 No Longer Active Simon Castillo MD Active PROMETHAZINE-CODEINE 6.25-10 MG/5ML ORAL SYRUP 5ml po qHS PRN Cough PROMETHAZINE-CODEINE 08189633747 No Longer Active Simon Castillo MD Active SINGULAIR 10 MG ORAL TABLET 1 po qd PRN Asthma/Allergies MONTELUKAST SODIUM 65760912838 Active Simon Castillo MD Active PREDNISONE 20 MG ORAL TABLET 2 po qd x 5 days PREDNISONE 66170237007 No Longer Active Simon Castillo MD Active VIAGRA 100 MG ORAL TABLET 0.5 to 1 po qd PRN Erectile dysfunction SILDENAFIL CITRATE 32493396816 Active Simon Castillo MD Active LUTEIN-ZEAXANTHIN 6-1 MG ORAL TABLET 2 po qd LUTEIN- ZEAXANTHIN 76124179082 Active Simon Castillo MD Active BILBERRY CAPSULE 1 po qd BILBERRY (VACCINIUM MYRTILLUS) CAPS 61430272569 Active Simon Castillo MD Active TRAMADOL HCL 50 MG ORAL TABLET 1-2 tablets every 6 hours as needed for pain TRAMADOL HCL 82148095264 No Longer Active Simon Castillo MD Active HYDROCODONE-ACETAMINOPHEN 5-325 MG ORAL TABLET 1 tab by mouth 8 hours as needed for pain HYDROCODONE-ACETAMINOPHEN 71440246189 No Longer Active Simon Castillo MD Active BUMETANIDE 0.5 MG ORAL TABLET 1 po qd BUMETANIDE 84330883075 Active Simon Castillo MD Active AUGMENTIN 875-125 MG ORAL TABLET 1 po BID x 10 days AMOXICILLIN-POT CLAVULANATE 82494536915 No Longer Active Simon Castillo MD Active PIOGLITAZONE HCL 30 MG ORAL TABLET 1 po qd PIOGLITAZONE HCL 78882388016 Active Simon Castillo MD Active GLIMEPIRIDE 4 MG ORAL TABLET 1 po BID GLIMEPIRIDE 37873605664 Active Simon Castillo MD Active ASPIRIN EC 81 MG ORAL TABLET DELAYED RELEASE 1 po qd ASPIRIN 26766986481 Active Simon Castillo MD Active CLOTRIMAZOLE 1 % EXTERNAL CREAM Apply to affected area of feet twice daily PRN Rash CLOTRIMAZOLE 11619810573 No Longer Active Simon Castillo MD Active PREDNISONE 5 MG ORAL TABLET 1 po BID PREDNISONE 53980013674 Active Dolly MCDERMOTT Active FISH OIL 1000 MG ORAL CAPSULE DELAYED RELEASE 1 po BID OMEGA- 3 FATTY ACIDS 66674960255 Active Simon Castillo MD Active LISINOPRIL 10 MG ORAL TABLET 1 p qd LISINOPRIL 01093392380 Active Simon Castillo MD Active CLARITIN 10 MG ORAL TABLET 1 tablet by mouth daily as needed for allergies LORATADINE 98342194783 No Longer Active Simon Castillo MD Active TRIAMCINOLONE ACETONIDE 0.1 % EXTERNAL OINTMENT Apply to affected areas TID for up to 2 weeks TRIAMCINOLONE ACETONIDE 72712066457 No Longer Active Simon Castillo MD Active LASIX 20 MG ORAL TABLET 1 tablet by mouth daily x 2 days FUROSEMIDE 26354597414 No Longer Active Simon Castillo MD Active SULFASALAZINE 500 MG ORAL TABLET DELAYED RELEASE 2 tabs BID 02/26 SULFASALAZINE 36049945635 No Longer Active Neto Oshea DO Active PREDNISONE 20 MG ORAL TABLET 2 tabs daily for 3 days, 1 tab daily for 3 days, 1/2 tab daily for 2 days PREDNISONE 37842335334 No Longer Active Jillina Fratico HEMPHILL Active PREDNISONE 20 MG ORAL TABLET 1 tablet daily for airway inflammation PREDNISONE 27499915027 No Longer Active 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 HAIR STYLIST Active AZITHROMYCIN 250 MG ORAL TABLET 2 po qd x 1 day, then 1 po qd x 4 days 01/28 AZITHROMYCIN 75730286846 No Longer Active Jillina Fraamayal HAIR STYLIST Active TRAMADOL HCL 50 MG ORAL TABLET 1 po q6hr PRN Pain TRAMADOL HCL 35308816838 No Longer Active Simon Castillo MD Active PREDNISONE 5 MG ORAL TABLET 1 po qod PREDNISONE 34434045153 No Longer Active Simon Castillo MD Active SYMBICORT 160-4.5 MCG/ACT INHALATION AEROSOL 2 puff BID BUDESONIDE-FORMOTEROL FUMARATE 68534315064 No Longer Active Simon Castillo MD Active FLONASE 50 MCG/ACT NASAL SUSPENSION 2 puffs in each nostril daily FLUTICASONE PROPIONATE 90956502841 No Longer Active Simon Castillo MD Active PREDNISONE 20 MG ORAL TABLET 2 tabs daily for 5 days, then 1 daily for 5 days PREDNISONE 90464290802 No Longer Active Simon Castillo MD Active PREDNISONE 20 MG ORAL TABLET 2 tabs daily for 5 days, then 1 daily for 5 days , then 0.5 for 4 days PREDNISONE 50938235464 No Longer Active Simon Castillo MD Active PREDNISONE 20 MG ORAL TABLET 2 tabs daily for 3 days, 1 tab daily for 3 days, 1/2 tab daily for 2 days PREDNISONE 77382290176 No Longer Active Simon Castillo MD Active AZITHROMYCIN 250 MG ORAL TABLET 2 po qd x 1 day, then 1 po qd x 4 days 03/16 AZITHROMYCIN 76735466759 No Longer Active Simon Castillo MD Active CARVEDILOL 6.25 MG ORAL TABLET 1 po BID CARVEDILOL 84596751197 Active Simon Castillo MD Active LISINOPRIL-HYDROCHLOROTHIAZIDE 20-12.5 MG ORAL TABLET 1/2 tab by mouth daily LISINOPRIL-HYDROCHLOROTHIAZIDE 41794401015 No Longer Active Simon Castillo MD Active PREDNISONE 5 MG ORAL TABLET Take one po qod PREDNISONE 17178787557 No Longer Active Simon Castillo MD Active GLYBURIDE 5 MG ORAL TABLET Take one by mouth daily GLYBURIDE 04058153171 No Longer Active Simon Castillo MD Active LEVAQUIN 750 MG ORAL TABLET 1 po qod x 5 doses LEVOFLOXACIN 21457934450 No Longer Active Simon Castillo MD Active CETIRIZINE HCL 10 MG ORAL TABLET 1 po qd as needed for allergies CETIRIZINE HCL 93813044871 No Longer Active Simon Castillo MD Active ATENOLOL 50 MG ORAL TABLET Take one by mouth daily ATENOLOL 75459025681 No Longer Active Simon Castillo MD Active FLONASE 50 MCG/ACT NASAL SUSPENSION 2 puffs in each nostril daily FLUTICASONE PROPIONATE 05799654812 No Longer Active Simon Castillo MD Active GLYBURIDE 5 MG ORAL TABLET Take one by mouth daily GLYBURIDE 80040538612 No Longer Active Simon Castillo MD Active SYMBICORT 80-4.5 MCG/ACT INHALATION AEROSOL 2 puffs twice a day BUDESONIDE-FORMOTEROL FUMARATE 89059311346 No Longer Active Simon Castillo MD Active PREDNISONE 20 MG ORAL TABLET 2 tabs daily for 4 days, 1 tab daily for 4 days, 1/2 tab daily for 4 days PREDNISONE 89369968243 No Longer Active Simon Castillo MD Active AMOXICILLIN 500 MG ORAL CAPSULE 2 po BID x 10 days AMOXICILLIN 90794681890 No Longer Active Simon Castillo MD Active METFORMIN HCL 1000 MG ORAL TABLET 1 by mounth twice a day METFORMIN HCL 59473467531 No Longer Active Simon Castillo MD Active IBUPROFEN 800 MG ORAL TABLET Take 1 tab every 6 hrs prn IBUPROFEN 04854271154 No Longer Active Simon Castillo MD Active GLYBURIDE 2.5 MG ORAL TABLET Take one by mouth daily GLYBURIDE 62079139076 No Longer Active Simon Castillo MD Active LANCETS 2 qd LANCETS 68646746081 Active Pamela Conde Active ACACIA CONTOUR TEST IN VITRO STRIP Use with testing twice daily GLUCOSE BLOOD 13019032776 Active Simon Castillo MD Active GLYBURIDE 2.5 MG ORAL TABLET Take one by mouth daily GLYBURIDE 2.5 MG ORAL TABLET 184662 GLYBURIDE Inactive PREDNISONE 20 MG ORAL TABLET 2 tabs daily for 4 days, 1 tab daily for 4 days, 1/2 tab daily for 4 days PREDNISONE 20 MG ORAL TABLET 000627 PREDNISONE Inactive SYMBICORT 80-4.5 MCG/ACT INHALATION AEROSOL 2 puffs twice a day SYMBICORT 80-4.5 MCG/ACT INHALATION AEROSOL BUDESONIDE- FORMOTEROL FUMARATE Inactive FLONASE 50 MCG/ACT NASAL SUSPENSION 2 puffs in each nostril daily FLONASE 50 MCG/ACT NASAL SUSPENSION 0025389 FLUTICASONE PROPIONATE Inactive ATENOLOL 50 MG ORAL TABLET Take one by mouth daily ATENOLOL 50 MG ORAL TABLET 512610 ATENOLOL Inactive CETIRIZINE HCL 10 MG ORAL TABLET 1 po qd as needed for allergies CETIRIZINE HCL 10 MG ORAL TABLET 3850970 CETIRIZINE HCL Inactive LEVAQUIN 750 MG ORAL TABLET 1 po qod x 5 doses LEVAQUIN 750 MG ORAL TABLET 920220 LEVOFLOXACIN Inactive GLYBURIDE 5 MG ORAL TABLET Take one by mouth daily GLYBURIDE 5 MG ORAL TABLET 732112 GLYBURIDE Inactive PREDNISONE 5 MG ORAL TABLET Take one po qod PREDNISONE 5 MG ORAL TABLET 117662 PREDNISONE Inactive PREDNISONE 20 MG ORAL TABLET 2 tabs daily for 5 days, then 1 daily for 5 days PREDNISONE 20 MG ORAL TABLET 414391 PREDNISONE Inactive FLONASE 50 MCG/ACT NASAL SUSPENSION 2 puffs in each nostril daily FLONASE 50 MCG/ACT NASAL SUSPENSION 0168704 FLUTICASONE PROPIONATE Inactive SYMBICORT 160-4.5 MCG/ACT INHALATION AEROSOL 2 puff BID SYMBICORT 160-4.5 MCG/ACT INHALATION AEROSOL BUDESONIDE-FORMOTEROL FUMARATE Inactive PREDNISONE 5 MG ORAL TABLET 1 po qod PREDNISONE 5 MG ORAL TABLET 394332 PREDNISONE Inactive PREDNISONE 20 MG ORAL TABLET 1 tablet daily for airway inflammation PREDNISONE 20 MG ORAL TABLET 169889 PREDNISONE Inactive SULFASALAZINE 500 MG ORAL TABLET DELAYED RELEASE 2 tabs BID 02/26 SULFASALAZINE 500 MG ORAL TABLET DELAYED RELEASE 589622 SULFASALAZINE Inactive LASIX 20 MG ORAL TABLET 1 tablet by mouth daily x 2 days LASIX 20 MG ORAL TABLET 584695 FUROSEMIDE Inactive CLARITIN 10 MG ORAL TABLET 1 tablet by mouth daily as needed for allergies CLARITIN 10 MG ORAL TABLET 316618 LORATADINE Inactive CLOTRIMAZOLE 1 % EXTERNAL CREAM Apply to affected area of feet twice daily PRN Rash CLOTRIMAZOLE 1 % EXTERNAL CREAM 598751 CLOTRIMAZOLE Inactive HYDROCODONE-ACETAMINOPHEN 5-325 MG ORAL TABLET 1 tab by mouth 8 hours as needed for pain HYDROCODONE-ACETAMINOPHEN 5-325 MG ORAL TABLET 716562 HYDROCODONE-ACETAMINOPHEN Inactive TRAMADOL HCL 50 MG ORAL TABLET 1-2 tablets every 6 hours as needed for pain TRAMADOL HCL 50 MG ORAL TABLET 181977 TRAMADOL HCL Inactive PROMETHAZINE-CODEINE 6.25-10 MG/5ML ORAL SYRUP 5ml po qHS PRN Cough PROMETHAZINE-CODEINE 6.25-10 MG/5ML ORAL SYRUP 950117 PROMETHAZINE-CODEINE Inactive AZITHROMYCIN 250 MG ORAL TABLET 2 po qd x 1, then 1 po qd x 4 AZITHROMYCIN 250 MG ORAL TABLET 554198 AZITHROMYCIN Inactive AMOXICILLIN 500 MG ORAL CAPSULE 2 po BID x 10 days AMOXICILLIN 500 MG ORAL CAPSULE 334202 AMOXICILLIN Inactive GLYBURIDE 5 MG ORAL TABLET Take one by mouth daily GLYBURIDE 5 MG ORAL TABLET 137366 GLYBURIDE Inactive AZITHROMYCIN 250 MG ORAL TABLET 2 po qd x 1 day, then 1 po qd x 4 days 03/16 AZITHROMYCIN 250 MG ORAL TABLET 693047 AZITHROMYCIN Inactive PREDNISONE 20 MG ORAL TABLET 2 tabs daily for 3 days, 1 tab daily for 3 days, 1/2 tab daily for 2 days PREDNISONE 20 MG ORAL TABLET 459590 PREDNISONE Inactive PREDNISONE 20 MG ORAL TABLET 2 tabs daily for 5 days, then 1 daily for 5 days , then 0.5 for 4 days PREDNISONE 20 MG ORAL TABLET 900131 PREDNISONE Inactive AZITHROMYCIN 250 MG ORAL TABLET 2 po qd x 1 day, then 1 po qd x 4 days 01/28 AZITHROMYCIN 250 MG ORAL TABLET 095185 AZITHROMYCIN Inactive PREDNISONE 20 MG ORAL TABLET 2 tabs daily for 3 days, 1 tab daily for 3 days, 1/2 tab daily for 2 days PREDNISONE 20 MG ORAL TABLET 120495 PREDNISONE Inactive TRIAMCINOLONE ACETONIDE 0.1 % EXTERNAL OINTMENT Apply to affected areas TID for up to 2 weeks TRIAMCINOLONE ACETONIDE 0.1 % EXTERNAL OINTMENT 2953049 TRIAMCINOLONE ACETONIDE Inactive AUGMENTIN 875-125 MG ORAL TABLET 1 po BID x 10 days AUGMENTIN 875-125 MG ORAL TABLET 816250 AMOXICILLIN-POT CLAVULANATE Inactive PREDNISONE 20 MG ORAL TABLET 2 po qd x 5 days PREDNISONE 20 MG ORAL TABLET 920502 PREDNISONE Inactive Immunizations Vaccine Administration Date Value [...] Peptide - Chemistry sodium, serum 142 mmol/L 332-262 0777/07/18 potassium, serum 5.0 mmol/L 3.5-5.2 chloride, serum [...] Panel - Chemistry sodium, serum 138 mmol/L 843-191 8971/06/04 carbon dioxide, venous blood 23.4 mmol/L 21.0-32.0 [...] Rate - Chemistry sodium, serum 142 mmol/L 590-292 2580/02/27 carbon dioxide, venous blood 26.2 mmol/L 21.0-32.0 [...] Panel - Chemistry sodium, serum 140 mmol/L 285-195 4058/07/13 carbon dioxide, venous blood 23.7 mmol/L 21.0-32.0 [...] dipstick Negative Negative sodium, serum 142 mmol/L 191-006 8172/01/08 carbon dioxide, venous blood 23.9 mmol/L 21.0-32.0 [...] Negative;Positive Encounters Code Encounter Date Provider Facility CPT-08197 Level 4 Est. Patient 11:32:07 CDT Simon Castillo [facility] CPT-46997 Level 3 Est. Patient 11:36:15 CDT Simon Castillo [facility] CPT-47248 Level 4 Est. Patient 14:06:23 INPATIENT CODER Simon Castillo MD [facility] CPT-40268 Level 3 Est. Patient 12:04:38 INPATIENT CODER Giles Tatum [facility] CPT-51391 Level 3 Est. Patient 11:57:09 INPATIENT CODER Giles Tatum [facility] CPT-73572 Level 3 Est. Patient 11:48:57 INPATIENT CODER Giles Tatum [facility] CPT-32250 Level 4 Est. Patient 09:54:36 CDT Simon Castillo MD [facility] CPT-42836 Level 4 Est. Patient 08:48:38 CDT Simon Castillo MD [facility] CPT-26722 Level 4 Est. Patient 09:54:08 CDT Simon Castillo MD [facility] CPT-84823 Level 4 Est. Patient 16:11:23 CDT Simon Castillo MD [facility] CPT-36572 Level 4 Est. Patient 09:29:28 INPATIENT CODER Simon Castillo MD [facility] CPT-00938 Level 3 Est. Patient 09:18:25 CDT Simon Castillo MD [facility] CPT-26813 Level 4 Est. Patient 11:51:23 CDT Simon Castillo MD [facility] CPT-02701 Level 4 Est. Patient 14:32:04 CDT Neto Oshea DO [facility] CPT-70859 Level 3 Est. Patient 08:41:43 CDT Jillina Nashzell [facility] CPT-36733 Level 3 Est. Patient 08:40:53 CDT 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 [facility] CPT-21775 Level 3 Est. Patient 08:36:52 CDT 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 [facility] CPT-46903 Level 3 Est. Patient 09:08:44 CDT Jillina Nashzell [facility] CPT-38578 Level 4 Est. Patient 09:17:32 INPATIENT CODER Simon Castillo MD [facility] CPT-42067 Level 3 Est. Patient 11:22:22 INPATIENT CODER Simon Castillo MD [facility] CPT-31755 Level 3 Est. Patient 09:02:14 CDT Simon Castillo MD [facility] CPT-28087 Level 4 Est. Patient 08:47:25 CDT Simon Castillo MD [facility] CPT-37414 Level 4 Est. Patient 10:17:25 CDT Simon Castillo MD [facility] CPT-93891 Level 4 Est. Patient 10:10:09 INPATIENT CODER Simon Castillo MD [facility] CPT-48376 Level 4 Est. Patient 11:48:19 CDT Simon Castillo MD [facility] CPT-84771 Level 4 Est. Patient 08:59:29 CDT Simon Castillo MD [facility] CPT-13730 Level 4 Est. Patient 10:52:51 INPATIENT CODER Simon Castillo MD [facility] CPT-28805 Level 4 Est. Patient 11:50:30 CDT Simon Castillo MD [facility] CPT-55303 Level 4 Est. Patient 09:54:46 CDT Simon Castillo MD [facility] CPT-70939 Level 3 Est. Patient 11:10:14 CDT Simon Castillo MD [facility] CPT-49432 Level 4 Est. Patient 09:44:02 CDT Simon Castillo MD [facility] CPT-34958 Level 3 Est. Patient 09:27:48 CDT Simon Castillo MD [facility] CPT-48142 Level 3 Est. Patient 09:58:06 INPATIENT CODER Simon Castillo MD [facility] CPT-67084 Level 3 Est. Patient 09:51:35 CDT Simon Castillo MD [facility] Procedures Code Procedure Name Date Entry Date Standard Description CPT-40392 EKG Trac and Interp - XRAY USE ONLY 11:41:45 CDT 02/23 CPT-98707 Chest, 2 views 11:41:45 CDT CPT-46135 EKG Trac and Interp - XRAY USE ONLY 12:19:18 INPATIENT CODER 09/29 CPT-11136 Chest, 2 views 12:19:17 INPATIENT CODER CPT-Cryo Cryotherapy 09:54:37 CDT CPT-57883 First Vx - Ix admin for Medicare patients 09:13:10 CDT CPT-24118 Fluzone High-Dose Intramuscular Suspension 09:13:10 CDT CPT-G0439 Subsequent Annual Wellness Exam 09:41:17 CDT CPT-57577 Lipid - LAB USE ONLY 17:15:33 CDT CPT-72417 HGBA1C - LAB USE ONLY 17:15:33 CDT CPT-23633 CMP - LAB USE ONLY 17:15:33 CDT CPT-23910 Venipuncture Draw Fee 17:15:33 CDT CPT-[facility] Transitional Care Mgmt-High 11:01:28 INPATIENT CODER CPT-72791 First Vx - Ix admin for Medicare patients 17:33:39 CDT CPT-14241 Fluzone High-Dose Intramuscular Suspension 17:33:39 CDT CPT-G0438 Initial Annual Wellness Exam 08:57:30 CDT CPT-98883 Chest 2V Frontal and Lat - XRAY USE ONLY 09:00:14 CDT CPT-59672 Venipuncture Draw Fee 13:33:02 CDT CPT-77056 Bone Density 09:37:49 INPATIENT CODER CPT-39739 Fluzone High Dose 17:20:42 CDT CPT-62574 Prevnar 13 17:20:42 CDT CPT-10812 Administration 2+ single or combination vaccines inc oral 17:20:42 CDT CPT-00865 Administration single or combination vaccine inc oral 17 :20:42 CDT CPT-63868 Hand comp min 3V 09:24:38 CDT CPT-55202 Venipuncture Draw Fee 08:07:29 INPATIENT CODER CPT-14949 Venipuncture Draw Fee 09:02:51 INPATIENT CODER CPT-38686 Venipuncture Draw Fee 12:45:08 INPATIENT CODER CPT-72152 Venipuncture Draw Fee 09:25:31 CDT CPT-G0008 Administration of Influenza Virus Vaccine 14:41:29 CDT CPT-98096 Fluzone High-Dose Intramuscular Suspension 14:41:29 CDT CPT-Cryo Cryotherapy 11:48:20 CDT CPT-02925 EKG Trac and Interp 09:21:58 CDT CPT-19763 Chest 2V Frontal and Lat 09:21:58 CDT CPT-Cryo Cryotherapy 10:54:51 INPATIENT CODER CPT-63052 Administration 2+ single or combination vaccines inc oral 10:42:19 CDT CPT-93185 Administration single or combination vaccine inc oral 10 :42:19 CDT CPT-07070 Pneumovax 10:42:19 CDT CPT-39746 Influenza High Dose age 65+ 10:42:19 CDT CPT-85484 Administration single or combination vaccine inc oral 13 :18:54 CDT CPT-88906 Influenza High Dose age 65+ 13:18:54 CDT CPT-11833 Venipuncture Draw Fee 11:53:16 CDT CPT-56108 LS spine comp w obliq 11:03:13 CDT CPT-Cryo Cryotherapy 08:27:16 INPATIENT CODER CPT-93312 Administration single or combination vaccine inc oral 10 :56:34 CDT CPT-87825 Influenza High Dose age 65+ 10:56:34 CDT
--- OUTSIDE RECORDS SUMMARY | 2018-03-31 16:53 | XMS REPORT | Clinical Summary ---
Author Author Admin, E Organization [employer] Address Unknown Phone Unavailable Allergies, Adverse Reactions, Alerts Allergy Name Reaction Description Start Date Severity Status Provider No Known Allergies Dolly Marvin BALDEMAR Conditions or Problems Problem Name Problem [...] Simon Castillo MD Rheumatoid arthritis Steroid use, prison V58.65 Resolved Simon Castillo MD Long-term (current) [...] abrasion, face, infected 910.1 Active Giles Tatum [employer]EARCH [employer]OCIATE Abrasion or friction burn of face, neck, and scalp except eye, infected Other injury of unspecified body region, initial encounter 879.8 Active Giles Tatum [employer]ICAL RESEARCH ASSOCIATE Open wound(s) (multiple) of unspecified site(s) except limbs, without mention of complication Lesion of skin of face 709.9 Active Giles Tatum MEDICAL RESEARCH ASSOCIATE Unspecified disorder of skin and subcutaneous tissue [...] QUADRANT ICD-789.03 Kerry Castillo MD SCIATICA ICD-724.3 Inactive Simon Castillo [...] bilateral ICD-729.5 Kerry Castillo MD 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, 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 Simon Castillo MD Hand pain, bilateral ICD-729.5 Kerry Castillo MD 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 Inactive Simon Castillo MD Pharyngitis ICD-462 Kerry Castillo MD Dyspnea ICD-786.09 Kerry Castillo MD 2016 Peripheral edema ICD-782.3 eKrry Castillo MD Pneumonia, right lower lobe ICD-486 Kerry Castillo MD Sinusitis, acute ICD-461.9 Kerry Castillo MD Dyspnea ICD-786.09 Kerry Castillo MD 2016 Medication List Medication Instructions Start Date Stop Date Generic Name NDC Status Provider Patient Instruction BUMETANIDE 0.5 MG ORAL TABLET 1 po qd BUMETANIDE 06904642100 Active Simon Castillo MD Active AUGMENTIN 875-125 MG ORAL TABLET 1 po BID x 10 days AMOXICILLIN-POT CLAVULANATE 19879323298 No Longer Active Simon aCstillo MD Active PIOGLITAZONE HCL 30 MG ORAL TABLET 1 po qd PIOGLITAZONE HCL 23646825584 Active Simon Castillo MD Active GLIMEPIRIDE 4 MG ORAL TABLET 1 po BID GLIMEPIRIDE 54711366674 Active Simon Castillo MD Active ASPIRIN EC 81 MG ORAL TABLET DELAYED RELEASE 1 po qd ASPIRIN 54044081066 Active Simon Castillo MD Active CLOTRIMAZOLE 1 % EXTERNAL CREAM Apply to affected area of feet twice daily PRN Rash CLOTRIMAZOLE 77595530412 No Longer Active Simon Castillo MD Active PREDNISONE 5 MG ORAL TABLET 1 po BID PREDNISONE 60236804369 Active Dolly MCDERMOTT Active FISH OIL 1000 MG ORAL CAPSULE DELAYED RELEASE 1 po BID OMEGA- 3 FATTY ACIDS 61367019729 Active Simon Castillo MD Active LISINOPRIL 10 MG ORAL TABLET 1 p qd LISINOPRIL 79023079392 Active Simon Castillo MD Active CLARITIN 10 MG ORAL TABLET 1 tablet by mouth daily as needed for allergies LORATADINE 95845989696 No Longer Active Simon Castillo MD Active TRIAMCINOLONE ACETONIDE 0.1 % EXTERNAL OINTMENT Apply to affected areas TID for up to 2 weeks TRIAMCINOLONE ACETONIDE 33540629168 No Longer Active Simon Castillo MD Active LASIX 20 MG ORAL TABLET 1 tablet by mouth daily x 2 days FUROSEMIDE 31946400941 No Longer Active Simon Castillo MD Active SULFASALAZINE 500 MG ORAL TABLET DELAYED RELEASE 2 tabs BID 02/26 SULFASALAZINE 75551161556 No Longer Active Neto Oshea DO Active PREDNISONE 20 MG ORAL TABLET 2 tabs daily for 3 days, 1 tab daily for 3 days, 1/2 tab daily for 2 days PREDNISONE 60860546366 No Longer Active Giles Tatum APRN Active PREDNISONE 20 MG ORAL TABLET 1 tablet daily for airway inflammation PREDNISONE 72940527983 No Longer Active Giles Tatum APRN Active AZITHROMYCIN 250 MG ORAL TABLET 2 po qd x 1 day, then 1 po qd x 4 days 01/28 AZITHROMYCIN 72411233690 No Longer Active Giles Tatum APRN Active HYDROCODONE-ACETAMINOPHEN 5-325 MG ORAL TABLET 1 tab by mouth 8 hours as needed for pain HYDROCODONE-ACETAMINOPHEN 56064508168 Active Simon Castillo MD Active TRAMADOL HCL 50 MG ORAL TABLET 1 po q6hr PRN Pain TRAMADOL HCL 69504833655 No Longer Active Simon Castillo MD Active PREDNISONE 5 MG ORAL TABLET 1 po qod PREDNISONE 63438854007 No Longer Active Simon Castillo MD Active SYMBICORT 160-4.5 MCG/ACT INHALATION AEROSOL 2 puff BID BUDESONIDE-FORMOTEROL FUMARATE 92981678463 No Longer Active Simon Castillo MD Active FLONASE 50 MCG/ACT NASAL SUSPENSION 2 puffs in each nostril daily FLUTICASONE PROPIONATE 94944197110 No Longer Active Simon Castillo MD Active PREDNISONE 20 MG ORAL TABLET 2 tabs daily for 5 days, then 1 daily for 5 days PREDNISONE 01008267799 No Longer Active Simon Castillo MD Active PREDNISONE 20 MG ORAL TABLET 2 tabs daily for 5 days, then 1 daily for 5 days , then 0.5 for 4 days PREDNISONE 25355205841 No Longer Active Simon Castillo MD Active PREDNISONE 20 MG ORAL TABLET 2 tabs daily for 3 days, 1 tab daily for 3 days, 1/2 tab daily for 2 days PREDNISONE 96715731811 No Longer Active Simon Castillo MD Active AZITHROMYCIN 250 MG ORAL TABLET 2 po qd x 1 day, then 1 po qd x 4 days 03/16 AZITHROMYCIN 00038247535 No Longer Active Simon Castillo MD Active CARVEDILOL 6.25 MG ORAL TABLET 1 po BID CARVEDILOL 11101871631 Active Simon Castillo MD Active LISINOPRIL-HYDROCHLOROTHIAZIDE 20-12.5 MG ORAL TABLET 1/2 tab by mouth daily LISINOPRIL-HYDROCHLOROTHIAZIDE 23140355431 No Longer Active Simon Castillo MD Active TRAMADOL HCL 50 MG ORAL TABLET 1-2 tablets every 6 hours as needed for pain TRAMADOL HCL 20763429872 Active Giles Nashtico HEMPHILL Active PREDNISONE 5 MG ORAL TABLET Take one po qod PREDNISONE 61953535725 No Longer Active Simon Castillo MD Active GLYBURIDE 5 MG ORAL TABLET Take one by mouth daily GLYBURIDE 90600475711 No Longer Active Simon Castillo MD Active LEVAQUIN 750 MG ORAL TABLET 1 po qod x 5 doses LEVOFLOXACIN 84928152298 No Longer Active Simon Castillo MD Active CETIRIZINE HCL 10 MG ORAL TABLET 1 po qd as needed for allergies CETIRIZINE HCL 53978942744 No Longer Active Simon Castillo MD Active BILBERRY CAPSULE 1 tab daily BILBERRY (VACCINIUM MYRTILLUS) CAPS 64257050562 Active Simon Castillo MD Active ATENOLOL 50 MG ORAL TABLET Take one by mouth daily ATENOLOL 82129292792 No Longer Active Simon Castillo MD Active FLONASE 50 MCG/ACT NASAL SUSPENSION 2 puffs in each nostril daily FLUTICASONE PROPIONATE 60607053320 No Longer Active Simon Castillo MD Active GLYBURIDE 5 MG ORAL TABLET Take one by mouth daily GLYBURIDE 46465057481 No Longer Active Simon Castillo MD Active SYMBICORT 80-4.5 MCG/ACT INHALATION AEROSOL 2 puffs twice a day BUDESONIDE-FORMOTEROL FUMARATE 66185793066 No Longer Active Simon Castillo MD Active PREDNISONE 20 MG ORAL TABLET 2 tabs daily for 4 days, 1 tab daily for 4 days, 1/2 tab daily for 4 days PREDNISONE 28488563990 No Longer Active Simon Castillo MD Active AMOXICILLIN 500 MG ORAL CAPSULE 2 po BID x 10 days AMOXICILLIN 09168089881 No Longer Active Simon Castillo MD Active METFORMIN HCL 1000 MG ORAL TABLET 1 by mount twice a day METFORMIN HCL 46515592257 No Longer Active Simon Castillo MD Active LUTEIN-ZEAXANTHIN 6-1 MG ORAL TABLET Take 2 by mouth daily LUTEIN- ZEAXANTHIN 04704901298 Active Simon Castillo MD Active IBUPROFEN 800 MG ORAL TABLET Take 1 tab every 6 hrs prn IBUPROFEN 46788235071 No Longer Active Simon Castillo MD Active GLYBURIDE 2.5 MG ORAL TABLET Take one by mouth daily GLYBURIDE 72086875769 No Longer Active Simon Castillo MD Active LANCETS 2 qd LANCETS 39942373197 Active Pamela Conde Active ACACIA CONTOUR TEST IN VITRO STRIP Use with testing twice daily GLUCOSE BLOOD 24225518628 Active Simon Castillo MD Active GLYBURIDE 2.5 MG ORAL TABLET Take one by mouth daily GLYBURIDE 2.5 MG ORAL TABLET 612285 GLYBURIDE Inactive PREDNISONE 20 MG ORAL TABLET 2 tabs daily for 4 days, 1 tab daily for 4 days, 1/2 tab daily for 4 days PREDNISONE 20 MG ORAL TABLET 752274 PREDNISONE Inactive SYMBICORT 80-4.5 MCG/ACT INHALATION AEROSOL 2 puffs twice a day SYMBICORT 80-4.5 MCG/ACT INHALATION AEROSOL BUDESONIDE- FORMOTEROL FUMARATE Inactive FLONASE 50 MCG/ACT NASAL SUSPENSION 2 puffs in each nostril daily FLONASE 50 MCG/ACT NASAL SUSPENSION 8873720 FLUTICASONE PROPIONATE Inactive ATENOLOL 50 MG ORAL TABLET Take one by mouth daily ATENOLOL 50 MG ORAL TABLET 676511 ATENOLOL Inactive CETIRIZINE HCL 10 MG ORAL TABLET 1 po qd as needed for allergies CETIRIZINE HCL 10 MG ORAL TABLET 1440748 CETIRIZINE HCL Inactive LEVAQUIN 750 MG ORAL TABLET 1 po qod x 5 doses LEVAQUIN 750 MG ORAL TABLET 609761 LEVOFLOXACIN Inactive GLYBURIDE 5 MG ORAL TABLET Take one by mouth daily GLYBURIDE 5 MG ORAL TABLET 330722 GLYBURIDE Inactive PREDNISONE 5 MG ORAL TABLET Take one po qod PREDNISONE 5 MG ORAL TABLET 563096 PREDNISONE Inactive PREDNISONE 20 MG ORAL TABLET 2 tabs daily for 5 days, then 1 daily for 5 days PREDNISONE 20 MG ORAL TABLET 215918 PREDNISONE Inactive FLONASE 50 MCG/ACT NASAL SUSPENSION 2 puffs in each nostril daily FLONASE 50 MCG/ACT NASAL SUSPENSION 9591914 FLUTICASONE PROPIONATE Inactive SYMBICORT 160-4.5 MCG/ACT INHALATION AEROSOL 2 puff BID SYMBICORT 160-4.5 MCG/ACT INHALATION AEROSOL BUDESONIDE-FORMOTEROL FUMARATE Inactive PREDNISONE 5 MG ORAL TABLET 1 po qod PREDNISONE 5 MG ORAL TABLET 335478 PREDNISONE Inactive PREDNISONE 20 MG ORAL TABLET 1 tablet daily for airway inflammation PREDNISONE 20 MG ORAL TABLET 678606 PREDNISONE Inactive SULFASALAZINE 500 MG ORAL TABLET DELAYED RELEASE 2 tabs BID 02/26 SULFASALAZINE 500 MG ORAL TABLET DELAYED RELEASE 753049 SULFASALAZINE Inactive LASIX 20 MG ORAL TABLET 1 tablet by mouth daily x 2 days LASIX 20 MG ORAL TABLET 739184 FUROSEMIDE Inactive CLARITIN 10 MG ORAL TABLET 1 tablet by mouth daily as needed for allergies CLARITIN 10 MG ORAL TABLET 528481 LORATADINE Inactive CLOTRIMAZOLE 1 % EXTERNAL CREAM Apply to affected area of feet twice daily PRN Rash CLOTRIMAZOLE 1 % EXTERNAL CREAM 619602 CLOTRIMAZOLE Inactive AMOXICILLIN 500 MG ORAL CAPSULE 2 po BID x 10 days AMOXICILLIN 500 MG ORAL CAPSULE 105029 AMOXICILLIN Inactive GLYBURIDE 5 MG ORAL TABLET Take one by mouth daily GLYBURIDE 5 MG ORAL TABLET 545166 GLYBURIDE Inactive AZITHROMYCIN 250 MG ORAL TABLET 2 po qd x 1 day, then 1 po qd x 4 days 03/16 AZITHROMYCIN 250 MG ORAL TABLET 750301 AZITHROMYCIN Inactive PREDNISONE 20 MG ORAL TABLET 2 tabs daily for 3 days, 1 tab daily for 3 days, 1/2 tab daily for 2 days PREDNISONE 20 MG ORAL TABLET 680718 PREDNISONE Inactive PREDNISONE 20 MG ORAL TABLET 2 tabs daily for 5 days, then 1 daily for 5 days , then 0.5 for 4 days PREDNISONE 20 MG ORAL TABLET 395846 PREDNISONE Inactive AZITHROMYCIN 250 MG ORAL TABLET 2 po qd x 1 day, then 1 po qd x 4 days 01/28 AZITHROMYCIN 250 MG ORAL TABLET 397613 AZITHROMYCIN Inactive PREDNISONE 20 MG ORAL TABLET 2 tabs daily for 3 days, 1 tab daily for 3 days, 1/2 tab daily for 2 days PREDNISONE 20 MG ORAL TABLET 670936 PREDNISONE Inactive TRIAMCINOLONE ACETONIDE 0.1 % EXTERNAL OINTMENT Apply to affected areas TID for up to 2 weeks TRIAMCINOLONE ACETONIDE 0.1 % EXTERNAL OINTMENT 6312092 TRIAMCINOLONE ACETONIDE Inactive AUGMENTIN 875-125 MG ORAL TABLET 1 po BID x 10 days AUGMENTIN 875-125 MG ORAL TABLET 637784 AMOXICILLIN-POT CLAVULANATE Inactive Immunizations Vaccine Administration Date [...] Peptide - Chemistry sodium, serum 142 mmol/L 803-497 8647/07/18 potassium, serum 5.0 mmol/L 3.5-5.2 chloride, serum [...] Panel - Chemistry sodium, serum 140 mmol/L 185-597 2420/07/13 carbon dioxide, venous blood 23.7 mmol/L 21.0-32.0 [...] ... - Chemistry sodium, serum 142 mmol/L 868-393 3984/01/08 carbon dioxide, venous blood 23.9 mmol/L 21.0-32.0 [...] Panel - Chemistry cholesterol, serum 126 mg/dL 343-184 0586/02/07 triglyceride, serum, fasting 83 mg/dL 30-200 HDL cholesterol, serum 70 mg/dL 32-96 LDL cholesterol, serum 39 mg/dL 0-130 hemoglobin A1C, blood, as % of total hemoglobin 8.3 % 4.3-6.0 sodium, serum 141 mmol/L 023-375 8568/02/07 carbon dioxide, venous blood 26.0 mmol/L 21.0-32.0 [...] Negative;Positive Encounters Code Encounter Date Provider Facility CPT-62176 Level 3 Est. Patient 12:04:38 TEACHER AIDE CLERICAL Giles Tatum [facility] CPT-56735 Level 3 Est. Patient 11:57:09 TEACHER AIDE CLERICAL Giles Tatum [facility] CPT-24687 Level 3 Est. Patient 11:48:57 TEACHER AIDE CLERICAL Giles Tatum [facility] CPT-46792 Level 4 Est. Patient 09:54:36 CDT Simon Castillo MD [facility] CPT-41990 Level 4 Est. Patient 08:48:38 CDT Simon Castillo MD [facility] CPT-90038 Level 4 Est. Patient 09:54:08 CDT Simon Castillo MD [facility] CPT-50352 Level 4 Est. Patient 16:11:23 CDT Simon Castillo MD [facility] CPT-45396 Level 4 Est. Patient 09:29:28 TEACHER AIDE CLERICAL Simon Castillo MD [facility] CPT-16141 Level 3 Est. Patient 09:18:25 CDT Simon Castillo MD [facility] CPT-87992 Level 4 Est. Patient 11:51:23 CDT Simon Castillo MD [facility] CPT-74630 Level 4 Est. Patient 14:32:04 CDT Neto Oshea DO [facility] CPT-57854 Level 3 Est. Patient 08:41:43 CDT Giles Tatum [facility] CPT-52110 Level 3 Est. Patient 08:40:53 CDT 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 [facility] CPT-08894 Level 3 Est. Patient 08:36:52 CDT Jillina Nashzell [facility] CPT-65658 Level 3 Est. Patient 09:08:44 CDT Jimeli Salcidol [facility] CPT-94602 Level 4 Est. Patient 09:17:32 TEACHER AIDE CLERICAL Simon Castillo MD [facility] CPT-74106 Level 3 Est. Patient 11:22:22 TEACHER AIDE CLERICAL Simon Castillo MD [facility] CPT-13537 Level 3 Est. Patient 09:02:14 CDT Simon Castillo MD [facility] CPT-81546 Level 4 Est. Patient 08:47:25 CDT Simon Castillo MD [facility] CPT-65374 Level 4 Est. Patient 10:17:25 CDT Simon Castillo MD [facility] CPT-29090 Level 4 Est. Patient 10:10:09 TEACHER AIDE CLERICAL Simon Castillo MD [facility] CPT-99699 Level 4 Est. Patient 11:48:19 CDT Simon Castillo MD [facility] CPT-05208 Level 4 Est. Patient 08:59:29 CDT Simon Castillo MD [facility] CPT-03094 Level 4 Est. Patient 10:52:51 TEACHER AIDE CLERICAL Simon Castillo MD [facility] CPT-45714 Level 4 Est. Patient 11:50:30 CDT Simon Castillo MD [facility] CPT-60194 Level 4 Est. Patient 09:54:46 CDT Simon Castillo MD [facility] CPT-00453 Level 3 Est. Patient 11:10:14 CDT Simon Castillo MD [facility] CPT-40874 Level 4 Est. Patient 09:44:02 CDT Simon Castillo MD [facility] CPT-60399 Level 3 Est. Patient 09:27:48 CDT Simon Castillo MD [facility] CPT-99467 Level 3 Est. Patient 09:58:06 TEACHER AIDE CLERICAL Simon Castillo MD [facility] CPT-15837 Level 3 Est. Patient 09:51:35 CDT Simon Castillo MD [facility] Procedures Code Procedure Name Date Entry Date Standard Description CPT-89026 EKG Trac and Interp - XRAY USE ONLY 12:19:18 TEACHER AIDE CLERICAL 09/29 CPT-71047 Chest, 2 views 12:19:17 TEACHER AIDE CLERICAL CPT-[facility] Cryotherapy 09:54:37 CDT CPT-44107 First Vx - Ix admin for Medicare patients 09:13:10 CDT CPT-22160 Fluzone High-Dose Intramuscular Suspension 09:13:10 CDT CPT-G0439 Subsequent Annual Wellness Exam 09:41:17 CDT CPT-82958 Lipid - LAB USE ONLY 17:15:33 CDT CPT-04245 HGBA1C - LAB USE ONLY 17:15:33 CDT CPT-45139 CMP - LAB USE ONLY 17:15:33 CDT CPT-04376 Venipuncture Draw Fee 17:15:33 CDT CPT-[facility] Transitional Care Mgmt-High 11:01:28 TEACHER AIDE CLERICAL CPT-17068 First Vx - Ix admin for Medicare patients 17:33:39 CDT CPT-60631 Fluzone High-Dose Intramuscular Suspension 17:33:39 CDT CPT-G0438 Initial Annual Wellness Exam 08:57:30 CDT CPT-63810 Chest 2V Frontal and Lat - XRAY USE ONLY 09:00:14 CDT CPT-14197 Venipuncture Draw Fee 13:33:02 CDT CPT-92096 Bone Density 09:37:49 TEACHER AIDE CLERICAL CPT-01762 Fluzone High Dose 17:20:42 CDT CPT-20890 Prevnar 13 17:20:42 CDT CPT-95831 Administration 2+ single or combination vaccines inc oral 17:20:42 CDT CPT-28404 Administration single or combination vaccine inc oral 17 :20:42 CDT CPT-37593 Hand comp min 3V 09:24:38 CDT CPT-41441 Venipuncture Draw Fee 08:07:29 TEACHER AIDE CLERICAL CPT-09602 Venipuncture Draw Fee 09:02:51 TEACHER AIDE CLERICAL CPT-25183 Venipuncture Draw Fee 12:45:08 TEACHER AIDE CLERICAL CPT-39336 Venipuncture Draw Fee 09:25:31 CDT CPT-G0008 Administration of Influenza Virus Vaccine 14:41:29 CDT CPT-25351 Fluzone High-Dose Intramuscular Suspension 14:41:29 CDT CPT-[facility] Cry[facility] 11:48:20 CDT CPT-41076 EKG Trac and Interp 09:21:58 CDT CPT-82462 Chest 2V Frontal and Lat 09:21:58 CDT CPT-Cryo Cryotherapy 10:54:51 TEACHER AIDE CLERICAL CPT-57837 Administration 2+ single or combination vaccines inc oral 10:42:19 CDT CPT-98001 Administration single or combination vaccine inc oral 10 :42:19 CDT CPT-85359 Pneumovax 10:42:19 CDT CPT-69961 Influenza High Dose age 65+ 10:42:19 CDT CPT-54794 Administration single or combination vaccine inc oral 13 :18:54 CDT CPT-82340 Influenza High Dose age 65+ 13:18:54 CDT CPT-39620 Venipuncture Draw Fee 11:53:16 CDT CPT-17573 LS spine comp w obliq 11:03:13 CDT CPT-C[facility]o Cryotherapy 08:27:16 TEACHER AIDE CLERICAL CPT-45619 Administration single or combination vaccine inc oral 10 :56:34 CDT CPT-55262 Influenza High Dose age 65+ 10:56:34 CDT
--- OUTSIDE RECORDS SUMMARY | 2018-03-31 16:54 | XMS REPORT | Clinical Summary ---
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 Inactive Simon Castillo MD Pharyngitis ICD-462 Kerry Castillo MD Dyspnea ICD-786.09 Kerry Castillo MD 2016 Peripheral edema ICD-782.3 Kerry Castillo MD Sinusitis, acute ICD-461.9 Kerry Castillo MD Dyspnea ICD-786.09 Kerry Castillo MD 2016 Syncope and collapse ICD-780.2 Kerry Castillo MD abrasion, face, infected ICD-910.1 Kerry Castillo MD Other injury of unspecified body region, initial encounter ICD-879.8 Kerry Castillo MD Lesion of skin of face ICD-709.9 Inactive Simon Castillo MD Pneumonia, right lower lobe ICD-486 Inactive Simon Castillo MD Medication List Medication Instructions Start Date Stop Date Generic Name NDC Status Provider Patient Instruction SINGULAIR 10 MG ORAL TABLET 1 po qd PRN Asthma/Allergies MONTELUKAST SODIUM 68103514904 Active Simon Castillo MD Active PROMETHAZINE-CODEINE 6.25-10 MG/5ML ORAL SYRUP 5ml po qHS PRN Cough PROMETHAZINE-CODEINE 12625143424 Active Simon Castillo MD Active AZITHROMYCIN 250 MG ORAL TABLET 2 po qd x 1, then 1 po qd x 4 AZITHROMYCIN 28215074456 Active Simon Castillo MD Active PREDNISONE 20 MG ORAL TABLET 2 po qd x 5 days PREDNISONE 72550851545 Active Simon Castillo MD Active VIAGRA 100 MG ORAL TABLET 0.5 to 1 po qd PRN Erectile dysfunction SILDENAFIL CITRATE 32487407232 Active Simon Castillo MD Active LUTEIN-ZEAXANTHIN 6-1 MG ORAL TABLET 2 po qd LUTEIN- ZEAXANTHIN 51480162616 Active Simon Castillo MD Active BILBERRY CAPSULE 1 po qd BILBERRY (VACCINIUM MYRTILLUS) CAPS 97298152706 Active Simon Castillo MD Active TRAMADOL HCL 50 MG ORAL TABLET 1-2 tablets every 6 hours as needed for pain TRAMADOL HCL 04333242514 No Longer Active Simon Castillo MD Active HYDROCODONE-ACETAMINOPHEN 5-325 MG ORAL TABLET 1 tab by mouth 8 hours as needed for pain HYDROCODONE-ACETAMINOPHEN 50034750074 No Longer Active Simon Castillo MD Active BUMETANIDE 0.5 MG ORAL TABLET 1 po qd BUMETANIDE 72550467478 Active Simon Castillo MD Active AUGMENTIN 875-125 MG ORAL TABLET 1 po BID x 10 days AMOXICILLIN-POT CLAVULANATE 03531363554 No Longer Active Simon Castillo MD Active PIOGLITAZONE HCL 30 MG ORAL TABLET 1 po qd PIOGLITAZONE HCL 86307382305 Active Simon Castillo MD Active GLIMEPIRIDE 4 MG ORAL TABLET 1 po BID GLIMEPIRIDE 74589150440 Active Simon Castillo MD Active ASPIRIN EC 81 MG ORAL TABLET DELAYED RELEASE 1 po qd ASPIRIN 16990925708 Active Simon Castillo MD Active CLOTRIMAZOLE 1 % EXTERNAL CREAM Apply to affected area of feet twice daily PRN Rash CLOTRIMAZOLE 80987703607 No Longer Active Simon Castillo MD Active PREDNISONE 5 MG ORAL TABLET 1 po BID PREDNISONE 51064879869 Active Dolly MCDERMOTT Active FISH OIL 1000 MG ORAL CAPSULE DELAYED RELEASE 1 po BID OMEGA- 3 FATTY ACIDS 83296788602 Active Simon Castillo MD Active LISINOPRIL 10 MG ORAL TABLET 1 p qd LISINOPRIL 99219129971 Active Simon Castillo MD Active CLARITIN 10 MG ORAL TABLET 1 tablet by mouth daily as needed for allergies LORATADINE 01696150345 No Longer Active Simon Castillo MD Active TRIAMCINOLONE ACETONIDE 0.1 % EXTERNAL OINTMENT Apply to affected areas TID for up to 2 weeks TRIAMCINOLONE ACETONIDE 68411541846 No Longer Active Simon Castillo MD Active LASIX 20 MG ORAL TABLET 1 tablet by mouth daily x 2 days FUROSEMIDE 01612280855 No Longer Active Simon Castillo MD Active SULFASALAZINE 500 MG ORAL TABLET DELAYED RELEASE 2 tabs BID 02/26 SULFASALAZINE 53883424736 No Longer Active Neto Oshea DO Active PREDNISONE 20 MG ORAL TABLET 2 tabs daily for 3 days, 1 tab daily for 3 days, 1/2 tab daily for 2 days PREDNISONE 34096506685 No Longer Active Giles Tatum APRN Active PREDNISONE 20 MG ORAL TABLET 1 tablet daily for airway inflammation PREDNISONE 14484704793 No Longer Active Giles Tatum APRN Active AZITHROMYCIN 250 MG ORAL TABLET 2 po qd x 1 day, then 1 po qd x 4 days 01/28 AZITHROMYCIN 98408523212 No Longer Active Giles Tatum APRN Active TRAMADOL HCL 50 MG ORAL TABLET 1 po q6hr PRN Pain TRAMADOL HCL 72777908740 No Longer Active Simon Castillo MD Active PREDNISONE 5 MG ORAL TABLET 1 po qod PREDNISONE 29702749353 No Longer Active Simon Castillo MD Active SYMBICORT 160-4.5 MCG/ACT INHALATION AEROSOL 2 puff BID BUDESONIDE-FORMOTEROL FUMARATE 81757751328 No Longer Active Simon Castillo MD Active FLONASE 50 MCG/ACT NASAL SUSPENSION 2 puffs in each nostril daily FLUTICASONE PROPIONATE 56538471068 No Longer Active Simon Castillo MD Active PREDNISONE 20 MG ORAL TABLET 2 tabs daily for 5 days, then 1 daily for 5 days PREDNISONE 91471940868 No Longer Active Simon Castillo MD Active PREDNISONE 20 MG ORAL TABLET 2 tabs daily for 5 days, then 1 daily for 5 days , then 0.5 for 4 days PREDNISONE 47330880863 No Longer Active Simon Castillo MD Active PREDNISONE 20 MG ORAL TABLET 2 tabs daily for 3 days, 1 tab daily for 3 days, 1/2 tab daily for 2 days PREDNISONE 82184604886 No Longer Active Simon Castillo MD Active AZITHROMYCIN 250 MG ORAL TABLET 2 po qd x 1 day, then 1 po qd x 4 days 03/16 AZITHROMYCIN 93761247058 No Longer Active Simon Castillo MD Active CARVEDILOL 6.25 MG ORAL TABLET 1 po BID CARVEDILOL 53029417389 Active Simon Castillo MD Active LISINOPRIL-HYDROCHLOROTHIAZIDE 20-12.5 MG ORAL TABLET 1/2 tab by mouth daily LISINOPRIL-HYDROCHLOROTHIAZIDE 98812835823 No Longer Active Simon Castillo MD Active PREDNISONE 5 MG ORAL TABLET Take one po qod PREDNISONE 74396230251 No Longer Active Simon Castillo MD Active GLYBURIDE 5 MG ORAL TABLET Take one by mouth daily GLYBURIDE 86697581165 No Longer Active Simon Castillo MD Active LEVAQUIN 750 MG ORAL TABLET 1 po qod x 5 doses LEVOFLOXACIN 29801625289 No Longer Active Simon Castillo MD Active CETIRIZINE HCL 10 MG ORAL TABLET 1 po qd as needed for allergies CETIRIZINE HCL 37775612013 No Longer Active Simon Castillo MD Active ATENOLOL 50 MG ORAL TABLET Take one by mouth daily ATENOLOL 71918953263 No Longer Active Simon Castillo MD Active FLONASE 50 MCG/ACT NASAL SUSPENSION 2 puffs in each nostril daily FLUTICASONE PROPIONATE 43068188635 No Longer Active Simon Castillo MD Active GLYBURIDE 5 MG ORAL TABLET Take one by mouth daily GLYBURIDE 71771102755 No Longer Active Simon Castillo MD Active SYMBICORT 80-4.5 MCG/ACT INHALATION AEROSOL 2 puffs twice a day BUDESONIDE-FORMOTEROL FUMARATE 92631591407 No Longer Active Simon Castillo MD Active PREDNISONE 20 MG ORAL TABLET 2 tabs daily for 4 days, 1 tab daily for 4 days, 1/2 tab daily for 4 days PREDNISONE 78967854639 No Longer Active Simon Castillo MD Active AMOXICILLIN 500 MG ORAL CAPSULE 2 po BID x 10 days AMOXICILLIN 05247347282 No Longer Active Simon Castillo MD Active METFORMIN HCL 1000 MG ORAL TABLET [facility] twice a day METFORMIN HCL 12680862963 No Longer Active Simon Castillo MD Active IBUPROFEN 800 MG ORAL TABLET Take 1 tab every 6 hrs prn IBUPROFEN 85677555912 No Longer Active Simon Castillo MD Active GLYBURIDE 2.5 MG ORAL TABLET Take one by mouth daily GLYBURIDE 33602125281 No Longer Active Simon Castillo MD Active LANCETS 2 qd LANCETS 18631139958 Active Pamela Hernandesoy Active ACACIA CONTOUR TEST IN VITRO STRIP Use with testing twice daily GLUCOSE BLOOD 60106029661 Active Simon Castillo MD Active GLYBURIDE 2.5 MG ORAL TABLET Take one by mouth daily GLYBURIDE 2.5 MG ORAL TABLET 988835 GLYBURIDE Inactive PREDNISONE 20 MG ORAL TABLET 2 tabs daily for 4 days, 1 tab daily for 4 days, 1/2 tab daily for 4 days PREDNISONE 20 MG ORAL TABLET 600500 PREDNISONE Inactive SYMBICORT 80-4.5 MCG/ACT INHALATION AEROSOL 2 puffs twice a day SYMBICORT 80-4.5 MCG/ACT INHALATION AEROSOL BUDESONIDE- FORMOTEROL FUMARATE Inactive FLONASE 50 MCG/ACT NASAL SUSPENSION 2 puffs in each nostril daily FLONASE 50 MCG/ACT NASAL SUSPENSION 1910095 FLUTICASONE PROPIONATE Inactive ATENOLOL 50 MG ORAL TABLET Take one by mouth daily ATENOLOL 50 MG ORAL TABLET 317683 ATENOLOL Inactive CETIRIZINE HCL 10 MG ORAL TABLET 1 po qd as needed for allergies CETIRIZINE HCL 10 MG ORAL TABLET 4202050 CETIRIZINE HCL Inactive LEVAQUIN 750 MG ORAL TABLET 1 po qod x 5 doses LEVAQUIN 750 MG ORAL TABLET 623882 LEVOFLOXACIN Inactive GLYBURIDE 5 MG ORAL TABLET Take one by mouth daily GLYBURIDE 5 MG ORAL TABLET 475198 GLYBURIDE Inactive PREDNISONE 5 MG ORAL TABLET Take one po qod PREDNISONE 5 MG ORAL TABLET 351659 PREDNISONE Inactive PREDNISONE 20 MG ORAL TABLET 2 tabs daily for 5 days, then 1 daily for 5 days PREDNISONE 20 MG ORAL TABLET 729852 PREDNISONE Inactive FLONASE 50 MCG/ACT NASAL SUSPENSION 2 puffs in each nostril daily FLONASE 50 MCG/ACT NASAL SUSPENSION 3827901 FLUTICASONE PROPIONATE Inactive SYMBICORT 160-4.5 MCG/ACT INHALATION AEROSOL 2 puff BID SYMBICORT 160-4.5 MCG/ACT INHALATION AEROSOL BUDESONIDE-FORMOTEROL FUMARATE Inactive PREDNISONE 5 MG ORAL TABLET 1 po qod PREDNISONE 5 MG ORAL TABLET 035429 PREDNISONE Inactive PREDNISONE 20 MG ORAL TABLET 1 tablet daily for airway inflammation PREDNISONE 20 MG ORAL TABLET 830318 PREDNISONE Inactive SULFASALAZINE 500 MG ORAL TABLET DELAYED RELEASE 2 tabs BID 02/26 SULFASALAZINE 500 MG ORAL TABLET DELAYED RELEASE 942132 SULFASALAZINE Inactive LASIX 20 MG ORAL TABLET 1 tablet by mouth daily x 2 days LASIX 20 MG ORAL TABLET 001102 FUROSEMIDE Inactive CLARITIN 10 MG ORAL TABLET 1 tablet by mouth daily as needed for allergies CLARITIN 10 MG ORAL TABLET 060754 LORATADINE Inactive CLOTRIMAZOLE 1 % EXTERNAL CREAM Apply to affected area of feet twice daily PRN Rash CLOTRIMAZOLE 1 % EXTERNAL CREAM 281117 CLOTRIMAZOLE Inactive HYDROCODONE-ACETAMINOPHEN 5-325 MG ORAL TABLET 1 tab by mouth 8 hours as needed for pain HYDROCODONE-ACETAMINOPHEN 5-325 MG ORAL TABLET 726426 HYDROCODONE-ACETAMINOPHEN Inactive TRAMADOL HCL 50 MG ORAL TABLET 1-2 tablets every 6 hours as needed for pain TRAMADOL HCL 50 MG ORAL TABLET 694124 TRAMADOL HCL Inactive AMOXICILLIN 500 MG ORAL CAPSULE 2 po BID x 10 days AMOXICILLIN 500 MG ORAL CAPSULE 512425 AMOXICILLIN Inactive GLYBURIDE 5 MG ORAL TABLET Take one by mouth daily GLYBURIDE 5 MG ORAL TABLET 638055 GLYBURIDE Inactive AZITHROMYCIN 250 MG ORAL TABLET 2 po qd x 1 day, then 1 po qd x 4 days 03/16 AZITHROMYCIN 250 MG ORAL TABLET 607629 AZITHROMYCIN Inactive PREDNISONE 20 MG ORAL TABLET 2 tabs daily for 3 days, 1 tab daily for 3 days, 1/2 tab daily for 2 days PREDNISONE 20 MG ORAL TABLET 604958 PREDNISONE Inactive PREDNISONE 20 MG ORAL TABLET 2 tabs daily for 5 days, then 1 daily for 5 days , then 0.5 for 4 days PREDNISONE 20 MG ORAL TABLET 226529 PREDNISONE Inactive AZITHROMYCIN 250 MG ORAL TABLET 2 po qd x 1 day, then 1 po qd x 4 days 01/28 AZITHROMYCIN 250 MG ORAL TABLET 949009 AZITHROMYCIN Inactive PREDNISONE 20 MG ORAL TABLET 2 tabs daily for 3 days, 1 tab daily for 3 days, 1/2 tab daily for 2 days PREDNISONE 20 MG ORAL TABLET 082106 PREDNISONE Inactive TRIAMCINOLONE ACETONIDE 0.1 % EXTERNAL OINTMENT Apply to affected areas TID for up to 2 weeks TRIAMCINOLONE ACETONIDE 0.1 % EXTERNAL OINTMENT 5253381 TRIAMCINOLONE ACETONIDE Inactive AUGMENTIN 875-125 MG ORAL TABLET 1 po BID x 10 days AUGMENTIN 875-125 MG ORAL TABLET 495737 AMOXICILLIN-POT CLAVULANATE Inactive Immunizations Vaccine Administration Date [...] Peptide - Chemistry sodium, serum 142 mmol/L 335-142 3470/07/18 potassium, serum 5.0 mmol/L 3.5-5.2 chloride, serum [...] Rate - Chemistry sodium, serum 142 mmol/L 523-645 4139/02/27 carbon dioxide, venous blood 26.2 mmol/L 21.0-32.0 [...] Panel - Chemistry sodium, serum 140 mmol/L 775-370 0814/07/13 carbon dioxide, venous blood 23.7 mmol/L 21.0-32.0 [...] dipstick Negative Negative sodium, serum 142 mmol/L 534-846 1939/01/08 carbon dioxide, venous blood 23.9 mmol/L 21.0-32.0 [...] Negative;Positive Encounters Code Encounter Date Provider Facility CPT-76798 Level 3 Est. Patient 11:36:15 CDT Simon Castillo MD [facility] CPT-59684 Level 4 Est. Patient 14:06:23 FINISHED GARMENT INSPECTOR Simon Castillo [facility] CPT-82288 Level 3 Est. Patient 12:04:38 FINISHED GARMENT INSPECTOR Giles Tatum [facility] [place] CPT-99050 Level 3 Est. Patient 11:57:09 FINISHED GARMENT INSPECTOR Giles Tatum [facility] [place] CPT-78933 Level 3 Est. Patient 11:48:57 FINISHED GARMENT INSPECTOR Giles Tatum [facility] [place] CPT-16754 Level 4 Est. Patient 09:54:36 CDT Simon Castillo MD [facility] CPT-41992 Level 4 Est. Patient 08:48:38 CDT Simon Castillo [facility] CPT-29609 Level 4 Est. Patient 09:54:08 CDT Simon Castillo MD [facility] CPT-31562 Level 4 Est. Patient 16:11:23 CDT Simon Castillo MD [facility] CPT-11685 Level 4 Est. Patient 09:29:28 FINISHED GARMENT INSPECTOR Simon Castillo MD [facility] CPT-20644 Level 3 Est. Patient 09:18:25 CDT Simon Castillo MD [facility] CPT-00827 Level 4 Est. Patient 11:51:23 CDT Simon Castillo MD [facility] CPT-98348 Level 4 Est. Patient 14:32:04 CDT Neto Oshea DO [facility] CPT-28231 Level 3 Est. Patient 08:41:43 CDT Giles Tatum [facility] [place] CPT-87509 Level 3 Est. Patient 08:40:53 CDT Jillina Nashzell [facility] [place] CPT-30896 Level 3 Est. Patient 08:36:52 CDT Jillina Nashzell [facility] [place] CPT-69866 Level 3 Est. Patient 09:08:44 CDT Jilltriston Salcidol [facility] [place] CPT-97595 Level 4 Est. Patient 09:17:32 FINISHED GARMENT INSPECTOR Simon Castillo MD [facility] CPT-68754 Level 3 Est. Patient 11:22:22 FINISHED GARMENT INSPECTOR Simon Castillo MD [facility] CPT-70190 Level 3 Est. Patient 09:02:14 CDT Simon Castillo MD [facility] CPT-89840 Level 4 Est. Patient 08:47:25 CDT Simon Castillo MD [facility] CPT-15195 Level 4 Est. Patient 10:17:25 CDT Simon Castillo MD [facility] CPT-94417 Level 4 Est. Patient 10:10:09 FINISHED GARMENT INSPECTOR Simon Castillo MD [facility] CPT-09101 Level 4 Est. Patient 11:48:19 CDT Simon Castillo MD [facility] CPT-70436 Level 4 Est. Patient 08:59:29 CDT Simon Castillo MD [facility] CPT-95234 Level 4 Est. Patient 10:52:51 FINISHED GARMENT INSPECTOR Simon Castillo MD [facility] CPT-05756 Level 4 Est. Patient 11:50:30 CDT Simon Castillo MD [facility] CPT-53851 Level 4 Est. Patient 09:54:46 CDT Simon Castillo MD [facility] CPT-26626 Level 3 Est. Patient 11:10:14 CDT Simon Castillo MD [facility] CPT-37068 Level 4 Est. Patient 09:44:02 CDT Simon Castillo MD [facility] CPT-86339 Level 3 Est. Patient 09:27:48 CDT Simon Castillo MD [facility] CPT-53441 Level 3 Est. Patient 09:58:06 FINISHED GARMENT INSPECTOR Simon Castillo MD [facility] CPT-20188 Level 3 Est. Patient 09:51:35 CDT Simon Castillo MD [facility] Procedures Code Procedure Name Date Entry Date Standard Description CPT-38159 EKG Trac and Interp - XRAY USE ONLY 12:19:18 FINISHED GARMENT INSPECTOR 09/29 CPT-47551 Chest, 2 views 12:19:17 FINISHED GARMENT INSPECTOR CPT-Cryo Cryotherapy 09:54:37 CDT CPT-22323 First Vx - Ix admin for Medicare patients 09:13:10 CDT CPT-26649 Fluzone High-Dose Intramuscular Suspension 09:13:10 CDT CPT-G0439 [facility] Annual Wellness Exam 09:41:17 CDT CPT-44867 Lipid - LAB USE ONLY 17:15:33 CDT CPT-98876 HGBA1C - LAB USE ONLY 17:15:33 CDT CPT-03656 CMP - LAB USE ONLY 17:15:33 CDT CPT-18523 Venipuncture Draw Fee 17:15:33 CDT CPT-TCM Transitional Care Mgmt-High 11:01:28 FINISHED GARMENT INSPECTOR CPT-57024 First Vx - Ix admin for Medicare patients 17:33:39 CDT CPT-26978 Fluzone High-Dose Intramuscular Suspension 17:33:39 CDT CPT-G0438 Initial Annual Wellness Exam 08:57:30 CDT CPT-83850 Chest 2V Frontal and Lat - XRAY USE ONLY 09:00:14 CDT CPT-49586 Venipuncture Draw Fee 13:33:02 CDT CPT-43940 Bone Density 09:37:49 FINISHED GARMENT INSPECTOR CPT-90497 Fluzone High Dose 17:20:42 CDT CPT-60308 Prevnar 13 17:20:42 CDT CPT-49694 Administration 2+ single or combination vaccines inc oral 17:20:42 CDT CPT-62554 Administration single or combination vaccine inc oral 17 :20:42 CDT CPT-79220 Hand comp min 3V 09:24:38 CDT CPT-33260 Venipuncture Draw Fee 08:07:29 FINISHED GARMENT INSPECTOR CPT-85832 Venipuncture Draw Fee 09:02:51 FINISHED GARMENT INSPECTOR CPT-91041 Venipuncture Draw Fee 12:45:08 FINISHED GARMENT INSPECTOR CPT-57523 Venipuncture Draw Fee 09:25:31 CDT CPT-G0008 Administration of Influenza Virus Vaccine 14:41:29 CDT CPT-17151 Fluzone High-Dose Intramuscular Suspension 14:41:29 CDT CPT-Cryo Cryotherapy 11:48:20 CDT CPT-70807 EKG Trac and Interp 09:21:58 CDT CPT-48555 Chest 2V Frontal and Lat 09:21:58 CDT CPT-Cryo Cryotherapy 10:54:51 FINISHED GARMENT INSPECTOR CPT-62573 Administration 2+ single or combination vaccines inc oral 10:42:19 CDT CPT-43632 Administration single or combination vaccine inc oral 10 :42:19 CDT CPT-74547 Pneumovax 10:42:19 CDT CPT-38154 Influenza High Dose age 65+ 10:42:19 CDT CPT-80817 Administration single or combination vaccine inc oral 13 :18:54 CDT CPT-84248 Influenza High Dose age 65+ 13:18:54 CDT CPT-08256 Venipuncture Draw Fee 11:53:16 CDT CPT-31803 LS spine comp w obliq 11:03:13 CDT CPT-Cryo Cryotherapy 08:27:16 FINISHED GARMENT INSPECTOR CPT-71113 Administration single or combination vaccine inc oral 10 :56:34 CDT CPT-13563 Influenza High Dose age 65+ 10:56:34 CDT
--- OUTSIDE RECORDS SUMMARY | 2018-03-31 16:55 | XMS REPORT | Clinical Summary ---
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 V58.65 Resolved Simon Castillo MD [...] keratosis Syncope and collapse 780.2 Active Giles Tautm APRN Syncope and collapse abrasion, face, infected 910.1 Active Giles Tatum BLENDING TANK HELPER Abrasion or friction burn of face, neck, and scalp except eye, infected Other injury of unspecified body region, initial encounter 879.8 Active Giles Tatum BLENDING TANK HELPER Open wound(s) (multiple) of unspecified site(s) except limbs, without mention of complication Lesion of skin of face 709.9 Active Giles Tatum BLENDING TANK HELPER Unspecified disorder of skin and subcutaneous tissue DIABETES ICD-V18.0 Inactive Simon Castillo MD FH LUNG CANCER ICD-V16.1 Inactive Simon Castillo MD ABDOMINAL TENDERNESS ICD-789.60 Inactive Simon Castillo MD CHEST WALL PAIN, HX OF ICD-V15.89 Kerry Castillo MD SEBORRHEIC KERATOSIS ICD-702.19 Inactive Simon Castillo MD BRONCHITIS, ACUTE ICD-466.0 Kerry Castillo MD SINUSITIS, ACUTE ICD-461.9 Kerry Castillo MD ABDOMINAL PAIN RIGHT LOWER QUADRANT ICD-789.03 Kerry Castillo MD SCIATICA ICD-724.3 Inactive Simon Castillo MD 2012 Actinic keratosis ICD-702.0 Kerry Castillo MD BENIGN PROSTATIC HYPERTROPHY, MILD, HX OF ICD-V13.89 Inactive Simon Castillo MD Cough ICD-786.2 Inactive Simon Castillo MD Eczema ICD-692.9 Inactive Simon Castillo MD 02/27 Bronchitis, acute ICD-466.0 Inactive Simon Castillo MD Obesity ICD-278.00 Inactive Simon Castillo MD 2013 Chest pain ICD-786.50 Inactive Simon Castillo MD Tinea pedis ICD-110.4 Inactive Simon Castillo MD Hand pain, bilateral ICD-729.5 Kerry Castillo MD 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, 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 ICD-V58.65 Inactive Simon Castillo MD Hand pain, bilateral ICD-729.5 Kerry Castillo MD Dyspnea ICD-786.09 Kerry Castillo MD 2016 Peripheral edema ICD-782.3 Kerry Castillo MD 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 Inactive Simon Castillo MD Pharyngitis ICD-462 Kerry Castillo MD Dyspnea ICD-786.09 Kerry Castillo MD 2016 Pneumonia, right lower lobe ICD-486 Inactive Simon Castillo MD Sinusitis, acute ICD-461.9 Kerry Castillo MD Medication List Medication Instructions Start Date Stop Date Generic Name NDC Status Provider Patient Instruction BUMETANIDE 0.5 MG ORAL TABLET 1 po qd BUMETANIDE 99043508930 Active Simon Castillo MD Active AUGMENTIN 875-125 MG ORAL TABLET 1 po BID x 10 days AMOXICILLIN-POT CLAVULANATE 89378639386 No Longer Active Simon Castillo MD Active PIOGLITAZONE HCL 30 MG ORAL TABLET 1 po qd PIOGLITAZONE HCL 15575268334 Active Simon Castillo MD Active GLIMEPIRIDE 4 MG ORAL TABLET 1 po BID GLIMEPIRIDE 85708027579 Active Simon Castillo MD Active ASPIRIN EC 81 MG ORAL TABLET DELAYED RELEASE 1 po qd ASPIRIN 57646817297 Active Simon Castillo MD Active CLOTRIMAZOLE 1 % EXTERNAL CREAM Apply to affected area of feet twice daily PRN Rash CLOTRIMAZOLE 79720264549 No Longer Active Simon Castillo MD Active PREDNISONE 5 MG ORAL TABLET 1 po BID PREDNISONE 54507001858 Active Dolly MCDERMOTT Active FISH OIL 1000 MG ORAL CAPSULE DELAYED RELEASE 1 po BID OMEGA- 3 FATTY ACIDS 39711502282 Active Simon Castillo MD Active LISINOPRIL 10 MG ORAL TABLET 1 p qd LISINOPRIL 44792815428 Active Simon Castillo MD Active CLARITIN 10 MG ORAL TABLET 1 tablet by mouth daily as needed for allergies LORATADINE 64365627834 No Longer Active Simon Castillo MD Active TRIAMCINOLONE ACETONIDE 0.1 % EXTERNAL OINTMENT Apply to affected areas TID for up to 2 weeks TRIAMCINOLONE ACETONIDE 58623575097 No Longer Active Simon Castillo MD Active LASIX 20 MG ORAL TABLET 1 tablet by mouth daily x 2 days FUROSEMIDE 81242549050 No Longer Active Simon Castillo MD Active SULFASALAZINE 500 MG ORAL TABLET DELAYED RELEASE 2 tabs BID 02/26 SULFASALAZINE 92182822056 No Longer Active Neto Oshea DO Active PREDNISONE 20 MG ORAL TABLET 2 tabs daily for 3 days, 1 tab daily for 3 days, 1/2 tab daily for 2 days PREDNISONE 95637439573 No Longer Active Giles Tatum APRN Active PREDNISONE 20 MG ORAL TABLET 1 tablet daily for airway inflammation PREDNISONE 42929101803 No Longer Active Giles Tatum APRN Active AZITHROMYCIN 250 MG ORAL TABLET 2 po qd x 1 day, then 1 po qd x 4 days 01/28 AZITHROMYCIN 38035401145 No Longer Active Giles Tatum APRN Active HYDROCODONE-ACETAMINOPHEN 5-325 MG ORAL TABLET 1 tab by mouth 8 hours as needed for pain HYDROCODONE-ACETAMINOPHEN 50244688104 Active Simon Castillo MD Active TRAMADOL HCL 50 MG ORAL TABLET 1 po q6hr PRN Pain TRAMADOL HCL 52325015414 No Longer Active Simon Castillo MD Active PREDNISONE 5 MG ORAL TABLET 1 po qod PREDNISONE 01346653848 No Longer Active Simon Castillo MD Active SYMBICORT 160-4.5 MCG/ACT INHALATION AEROSOL 2 puff BID BUDESONIDE-FORMOTEROL FUMARATE 89454094811 No Longer Active Simon Castillo MD Active FLONASE 50 MCG/ACT NASAL SUSPENSION 2 puffs in each nostril daily FLUTICASONE PROPIONATE 70324310816 No Longer Active Simon Castillo MD Active PREDNISONE 20 MG ORAL TABLET 2 tabs daily for 5 days, then 1 daily for 5 days PREDNISONE 54042698554 No Longer Active Simon Castillo MD Active PREDNISONE 20 MG ORAL TABLET 2 tabs daily for 5 days, then 1 daily for 5 days , then 0.5 for 4 days PREDNISONE 87781679655 No Longer Active Simon Castillo MD Active PREDNISONE 20 MG ORAL TABLET 2 tabs daily for 3 days, 1 tab daily for 3 days, 1/2 tab daily for 2 days PREDNISONE 83671876318 No Longer Active Simon Castillo MD Active AZITHROMYCIN 250 MG ORAL TABLET 2 po qd x 1 day, then 1 po qd x 4 days 03/16 AZITHROMYCIN 81396896158 No Longer Active Simon Castillo MD Active CARVEDILOL 6.25 MG ORAL TABLET 1 po BID CARVEDILOL 32305024534 Active Simon Castillo MD Active LISINOPRIL-HYDROCHLOROTHIAZIDE 20-12.5 MG ORAL TABLET 1/2 tab by mouth daily LISINOPRIL-HYDROCHLOROTHIAZIDE 60204327721 No Longer Active Simon Castillo MD Active TRAMADOL HCL 50 MG ORAL TABLET 1-2 tablets every 6 hours as needed for pain TRAMADOL HCL 31529857019 Active Giles Tatum APRN Active PREDNISONE 5 MG ORAL TABLET Take one po qod PREDNISONE 16639629787 No Longer Active Simon Castillo MD Active GLYBURIDE 5 MG ORAL TABLET Take one by mouth daily GLYBURIDE 66147596119 No Longer Active Simon Castillo MD Active LEVAQUIN 750 MG ORAL TABLET 1 po qod x 5 doses LEVOFLOXACIN 25997539098 No Longer Active Simon Castillo MD Active CETIRIZINE HCL 10 MG ORAL TABLET 1 po qd as needed for allergies CETIRIZINE HCL 11376216027 No Longer Active Simon Castillo MD Active BILBERRY CAPSULE 1 tab daily BILBERRY (VACCINIUM MYRTILLUS) CAPS 22385706613 Active Simon Castillo MD Active ATENOLOL 50 MG ORAL TABLET Take one by mouth daily ATENOLOL 76653674308 No Longer Active Simon Castillo MD Active FLONASE 50 MCG/ACT NASAL SUSPENSION 2 puffs in each nostril daily FLUTICASONE PROPIONATE 56249285677 No Longer Active Simon Castillo MD Active GLYBURIDE 5 MG ORAL TABLET Take one by mouth daily GLYBURIDE 40226586797 No Longer Active Simon Castillo MD Active SYMBICORT 80-4.5 MCG/ACT INHALATION AEROSOL 2 puffs twice a day BUDESONIDE-FORMOTEROL FUMARATE 61989680372 No Longer Active Simon Castillo MD Active PREDNISONE 20 MG ORAL TABLET 2 tabs daily for 4 days, 1 tab daily for 4 days, 1/2 tab daily for 4 days PREDNISONE 39626283796 No Longer Active Simon Castillo MD Active AMOXICILLIN 500 MG ORAL CAPSULE 2 po BID x 10 days AMOXICILLIN 88990532851 No Longer Active Simon Castillo MD Active METFORMIN HCL 1000 MG ORAL TABLET 1 by [facility] twice a day METFORMIN HCL 52091172851 No Longer Active Simon Castillo MD Active LUTEIN-ZEAXANTHIN 6-1 MG ORAL TABLET Take 2 by mouth daily LUTEIN- ZEAXANTHIN 16493735230 Active Simon Castillo MD Active IBUPROFEN 800 MG ORAL TABLET Take 1 tab every 6 hrs prn IBUPROFEN 00910031621 No Longer Active Simon Castillo MD Active GLYBURIDE 2.5 MG ORAL TABLET Take one by mouth daily GLYBURIDE 13969974486 No Longer Active Simon Castillo MD Active LANCETS 2 qd LANCETS 69332188123 Active Pamela Conde Active ACACIA CONTOUR TEST IN VITRO STRIP Use with testing twice daily GLUCOSE BLOOD 59732341903 Active Simon Castillo MD Active GLYBURIDE 2.5 MG ORAL TABLET Take one by mouth daily GLYBURIDE 2.5 MG ORAL TABLET 106625 GLYBURIDE Inactive PREDNISONE 20 MG ORAL TABLET 2 tabs daily for 4 days, 1 tab daily for 4 days, 1/2 tab daily for 4 days PREDNISONE 20 MG ORAL TABLET 819441 PREDNISONE Inactive SYMBICORT 80-4.5 MCG/ACT INHALATION AEROSOL 2 puffs twice a day SYMBICORT 80-4.5 MCG/ACT INHALATION AEROSOL BUDESONIDE- FORMOTEROL FUMARATE Inactive FLONASE 50 MCG/ACT NASAL SUSPENSION 2 puffs in each nostril daily FLONASE 50 MCG/ACT NASAL SUSPENSION 5895916 FLUTICASONE PROPIONATE Inactive ATENOLOL 50 MG ORAL TABLET Take one by mouth daily ATENOLOL 50 MG ORAL TABLET 129412 ATENOLOL Inactive CETIRIZINE HCL 10 MG ORAL TABLET 1 po qd as needed for allergies CETIRIZINE HCL 10 MG ORAL TABLET 8729594 CETIRIZINE HCL Inactive LEVAQUIN 750 MG ORAL TABLET 1 po qod x 5 doses LEVAQUIN 750 MG ORAL TABLET 942360 LEVOFLOXACIN Inactive GLYBURIDE 5 MG ORAL TABLET Take one by mouth daily GLYBURIDE 5 MG ORAL TABLET 258656 GLYBURIDE Inactive PREDNISONE 5 MG ORAL TABLET Take one po qod PREDNISONE 5 MG ORAL TABLET 319593 PREDNISONE Inactive PREDNISONE 20 MG ORAL TABLET 2 tabs daily for 5 days, then 1 daily for 5 days PREDNISONE 20 MG ORAL TABLET 364345 PREDNISONE Inactive FLONASE 50 MCG/ACT NASAL SUSPENSION 2 puffs in each nostril daily FLONASE 50 MCG/ACT NASAL SUSPENSION 0750595 FLUTICASONE PROPIONATE Inactive SYMBICORT 160-4.5 MCG/ACT INHALATION AEROSOL 2 puff BID SYMBICORT 160-4.5 MCG/ACT INHALATION AEROSOL BUDESONIDE-FORMOTEROL FUMARATE Inactive PREDNISONE 5 MG ORAL TABLET 1 po qod PREDNISONE 5 MG ORAL TABLET 212405 PREDNISONE Inactive PREDNISONE 20 MG ORAL TABLET 1 tablet daily for airway inflammation PREDNISONE 20 MG ORAL TABLET 137210 PREDNISONE Inactive SULFASALAZINE 500 MG ORAL TABLET DELAYED RELEASE 2 tabs BID 02/26 SULFASALAZINE 500 MG ORAL TABLET DELAYED RELEASE 193646 SULFASALAZINE Inactive LASIX 20 MG ORAL TABLET 1 tablet by mouth daily x 2 days LASIX 20 MG ORAL TABLET 035343 FUROSEMIDE Inactive CLARITIN 10 MG ORAL TABLET 1 tablet by mouth daily as needed for allergies CLARITIN 10 MG ORAL TABLET 044426 LORATADINE Inactive CLOTRIMAZOLE 1 % EXTERNAL CREAM Apply to affected area of feet twice daily PRN Rash CLOTRIMAZOLE 1 % EXTERNAL CREAM 633075 CLOTRIMAZOLE Inactive AMOXICILLIN 500 MG ORAL CAPSULE 2 po BID x 10 days AMOXICILLIN 500 MG ORAL CAPSULE 409150 AMOXICILLIN Inactive GLYBURIDE 5 MG ORAL TABLET Take one by mouth daily GLYBURIDE 5 MG ORAL TABLET 140561 GLYBURIDE Inactive AZITHROMYCIN 250 MG ORAL TABLET 2 po qd x 1 day, then 1 po qd x 4 days 03/16 AZITHROMYCIN 250 MG ORAL TABLET 624863 AZITHROMYCIN Inactive PREDNISONE 20 MG ORAL TABLET 2 tabs daily for 3 days, 1 tab daily for 3 days, 1/2 tab daily for 2 days PREDNISONE 20 MG ORAL TABLET 066074 PREDNISONE Inactive PREDNISONE 20 MG ORAL TABLET 2 tabs daily for 5 days, then 1 daily for 5 days , then 0.5 for 4 days PREDNISONE 20 MG ORAL TABLET 365496 PREDNISONE Inactive AZITHROMYCIN 250 MG ORAL TABLET 2 po qd x 1 day, then 1 po qd x 4 days 01/28 AZITHROMYCIN 250 MG ORAL TABLET 741909 AZITHROMYCIN Inactive PREDNISONE 20 MG ORAL TABLET 2 tabs daily for 3 days, 1 tab daily for 3 days, 1/2 tab daily for 2 days PREDNISONE 20 MG ORAL TABLET 655719 PREDNISONE Inactive TRIAMCINOLONE ACETONIDE 0.1 % EXTERNAL OINTMENT Apply to affected areas TID for up to 2 weeks TRIAMCINOLONE ACETONIDE 0.1 % EXTERNAL OINTMENT 4354233 TRIAMCINOLONE ACETONIDE Inactive AUGMENTIN 875-125 MG ORAL TABLET 1 po BID x 10 days AUGMENTIN 875-125 MG ORAL TABLET 197406 AMOXICILLIN-POT CLAVULANATE Inactive Immunizations Vaccine Administration Date [...] Natriuretic Peptide, UADIP W/MICRO, AUTO - Chemistry RBC, urine, dipstick Negative Negative protein, total urine random 1+ mg/dL Negative Lab Report: B-Type Natriuretic Peptide, UADIP W/MICRO, AUTO - Urinalysis glucose, urine, semiquantitative Negative Negative urine color Yellow Colorless;Lightyellow;Straw;Yellow ketones, urine, by test strip Negative Negative bilirubin, urine Negative Negative appearance, urine Clear Clear specific gravity, urine 1.025 1.000-1.030 pH, urine, semiquantitative 5.5 5.0-8.5 urobilinogen, urine, semiquantitative (dipstick) 0.2 E.U./dL Normal leukocyte esterase, urine, by dipstick Negative Negative nitrite, urine, semiquantitative Negative Negative Lab Report: Basic Metabolic Panel, B-Type Natriuretic Peptide - Chemistry sodium, serum 142 mmol/L 130-837 7232/07/18 urea nitrogen, blood 51 mg/dL 7-18 creatinine, serum 2.47 mg/dL 0.60-1.30 potassium, serum 5.0 mmol/L 3.5-5.2 chloride, serum 107 mmol/L 98-107 carbon dioxide, venous blood 28.2 mmol/L 21.0-32.0 blood glucose 117 mg/dL 65-110 calcium, serum 9.1 mg/dL 8.5-10.1 Lab Report: CBC - Hematology leukocyte count, [...] 4.3-6.0 Lab Report: CBC, HGBA1C - Hematology mean corpuscular volume, RBC 93 fL 80-97 hematocrit, blood 39.7 % 40.0-54.0 hemoglobin, blood 13.1 g/dL 14.0-18.0 erythrocyte (RBC) count 4.28 10^6/MM^3 10*6/mm3 4.50-6.50 leukocyte count, blood 7.7 10^3/MM^3 10*3/mm3 4.6-10.2 mean corpuscular hemoglobin, RBC 30.6 pg 27.0-31.2 mean corpuscular hemoglobin concentration, RBC 33.0 G/DL % 31.8- 35.4 red blood cell distribution width 14.3 % 11.6-14.8 platelet count 238 10^3/MM^3 10*3/mm3 142-424 Lab Report: Comp. Metabolic Panel - Chemistry sodium, serum 140 mmol/L 894-382 5329/07/13 carbon dioxide, venous blood 23.7 mmol/L 21.0-32.0 [...] Stimulating Hormone (L), Free ... - Chemistry RBC, urine, dipstick Negative Negative protein, total urine random Negative mg/dL Negative sodium, serum 142 mmol/L 884-140 0674/01/08 carbon dioxide, venous blood 23.9 mmol/L 21.0-32.0 [...] 1.015 1.000-1.030 pH, urine, semiquantitative 5.0 5.0-8.5 glucose, urine, semiquantitative Negative Negative urobilinogen, urine, semiquantitative (dipstick) 0.2 E.U./dL Normal leukocyte esterase, urine, by dipstick Negative Negative nitrite, urine, semiquantitative Negative Negative ketones, urine, by test strip Negative Negative bilirubin, urine Negative Negative Lab Report: HGBA1C - Chemistry hemoglobin A1C, blood, as % of total hemoglobin 7.8 % 4.3-6.0 Lab Report: MIKAELA INFLUENZA A/B - Toxicology rapid flu test Negative Negative;Positive Encounters Code Encounter Date Provider Facility CPT-84580 Level 3 Est. Patient 12:04:38 RESOURCE CONSERVATION SPECIALIST Giles Tatum [facility] CPT-99089 Level 3 Est. Patient 11:57:09 RESOURCE CONSERVATION SPECIALIST Giles Tatum [facility] CPT-87741 Level 3 Est. Patient 11:48:57 RESOURCE CONSERVATION SPECIALIST Giles Tatum [facility] CPT-51400 Level 4 Est. Patient 09:54:36 CDT Simon Castillo MD [facility] CPT-01651 Level 4 Est. Patient 08:48:38 CDT Simon Castillo MD [facility] CPT-41716 Level 4 Est. Patient 09:54:08 CDT Simon Castillo MD [facility] CPT-97142 Level 4 Est. Patient 16:11:23 CDT Simon Castillo MD [facility] CPT-80974 Level 4 Est. Patient 09:29:28 RESOURCE CONSERVATION SPECIALIST Simon Castillo MD [facility] CPT-40830 Level 3 Est. Patient 09:18:25 CDT Simon Castillo MD [facility] CPT-19910 Level 4 Est. Patient 11:51:23 CDT Simon Castillo MD [facility] CPT-41771 Level 4 Est. Patient 14:32:04 CDT Neto Oshea DO [facility] CPT-60974 Level 3 Est. Patient 08:41:43 CDT Jillina Nashamayal [facility] CPT-99486 Level 3 Est. Patient 08:40:53 CDT Jillina Nashzell [facility] CPT-65033 Level 3 Est. Patient 08:36:52 CDT Jillina Nashzell [facility] CPT-36262 Level 3 Est. Patient 09:08:44 CDT Jilltriston Nashzell [facility] CPT-75672 Level 4 Est. Patient 09:17:32 RESOURCE CONSERVATION SPECIALIST Simon Castillo MD [facility] CPT-68493 Level 3 Est. Patient 11:22:22 RESOURCE CONSERVATION SPECIALIST Simon Castillo MD [facility] CPT-18032 Level 3 Est. Patient 09:02:14 CDT Simon Castillo MD [facility] CPT-00561 Level 4 Est. Patient 08:47:25 CDT Simon Castillo MD [facility] CPT-45666 Level 4 Est. Patient 10:17:25 CDT Simon Castillo MD [facility] CPT-97027 Level 4 Est. Patient 10:10:09 RESOURCE CONSERVATION SPECIALIST Simon Castillo MD [facility] CPT-74066 Level 4 Est. Patient 11:48:19 CDT Simon Castillo MD [facility] CPT-61179 Level 4 Est. Patient 08:59:29 CDT Simon Castillo MD [facility] CPT-32878 Level 4 Est. Patient 10:52:51 RESOURCE CONSERVATION SPECIALIST Simon Castillo MD [facility] CPT-17089 Level 4 Est. Patient 11:50:30 CDT Simon Castillo MD [facility] CPT-77490 Level 4 Est. Patient 09:54:46 CDT Simon Castillo MD [facility] CPT-63925 Level 3 Est. Patient 11:10:14 CDT Simon Castillo MD [facility] CPT-92238 Level 4 Est. Patient 09:44:02 CDT Simon Castillo MD [facility] CPT-56900 Level 3 Est. Patient 09:27:48 CDT Simon Castillo MD [facility] CPT-36293 Level 3 Est. Patient 09:58:06 RESOURCE CONSERVATION SPECIALIST Simon Castillo MD [facility] CPT-88065 Level 3 Est. Patient 09:51:35 CDT Simon Castillo MD [facility] Procedures Code Procedure Name Date Entry Date Standard Description CPT-28855 EKG Trac and Interp - XRAY USE ONLY 12:19:18 RESOURCE CONSERVATION SPECIALIST 09/29 CPT-53517 Chest, 2 views 12:19:17 RESOURCE CONSERVATION SPECIALIST CPT-Cryo Cryotherapy 09:54:37 CDT CPT-28666 First Vx - Ix admin for Medicare patients 09:13:10 CDT CPT-44985 Fluzone High-Dose Intramuscular Suspension 09:13:10 CDT CPT-G0439 [facility] Annual Wellness Exam 09:41:17 CDT CPT-80296 Lipid - LAB USE ONLY 17:15:33 CDT CPT-43931 HGBA1C - LAB USE ONLY 17:15:33 CDT CPT-19298 CMP - LAB USE ONLY 17:15:33 CDT CPT-03839 Venipuncture Draw Fee 17:15:33 CDT CPT-[facility] Transitional Care Mgmt-High 11:01:28 RESOURCE CONSERVATION SPECIALIST CPT-29455 First Vx - Ix admin for Medicare patients 17:33:39 CDT CPT-44835 Fluzone High-Dose Intramuscular Suspension 17:33:39 CDT CPT-G0438 Initial Annual Wellness Exam 08:57:30 CDT CPT-03686 Chest 2V Frontal and Lat - XRAY USE ONLY 09:00:14 CDT CPT-60483 Venipuncture Draw Fee 13:33:02 CDT CPT-14609 Bone Density 09:37:49 RESOURCE CONSERVATION SPECIALIST CPT-44104 Fluzone High Dose 17:20:42 CDT CPT-32488 Prevnar 13 17:20:42 CDT CPT-49049 Administration 2+ single or combination vaccines inc oral 17:20:42 CDT CPT-72522 Administration single or combination vaccine inc oral 17 :20:42 CDT CPT-30070 Hand comp min 3V 09:24:38 CDT CPT-48598 Venipuncture Draw Fee 08:07:29 RESOURCE CONSERVATION SPECIALIST CPT-83395 Venipuncture Draw Fee 09:02:51 RESOURCE CONSERVATION SPECIALIST CPT-07106 Venipuncture Draw Fee 12:45:08 RESOURCE CONSERVATION SPECIALIST CPT-79897 Venipuncture Draw Fee 09:25:31 CDT CPT-G0008 Administration of Influenza Virus Vaccine 14:41:29 CDT CPT-50897 Fluzone High-Dose Intramuscular Suspension 14:41:29 CDT CPT-Cryo Cryotherapy 11:48:20 CDT CPT-18179 EKG Trac and Interp 09:21:58 CDT CPT-07641 Chest 2V Frontal and Lat 09:21:58 CDT CPT-Cryo Cryotherapy 10:54:51 RESOURCE CONSERVATION SPECIALIST CPT-47104 Administration 2+ single or combination vaccines inc oral 10:42:19 CDT CPT-04928 Administration single or combination vaccine inc oral 10 :42:19 CDT CPT-64855 Pneumovax 10:42:19 CDT CPT-38575 Influenza High Dose age 65+ 10:42:19 CDT CPT-96224 Administration single or combination vaccine inc oral 13 :18:54 CDT CPT-19507 Influenza High Dose age 65+ 13:18:54 CDT CPT-15197 Venipuncture Draw Fee 11:53:16 CDT CPT-70527 LS spine comp w obliq 11:03:13 CDT CPT-Cryo Cryotherapy 08:27:16 RESOURCE CONSERVATION SPECIALIST CPT-71253 Administration single or combination vaccine inc oral 10 :56:34 CDT CPT-41614 Influenza High Dose age 65+ 10:56:34 CDT
--- OUTSIDE RECORDS SUMMARY | 2018-03-31 16:56 | XMS REPORT | Clinical Summary ---
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 Inactive Simon Castillo MD Hand [...] Dyspnea ICD-786.09 Inactive Simon Castillo MD 2016 Medication List Medication Instructions Start Date Stop Date Generic Name NDC Status Provider Patient Instruction BUMETANIDE 0.5 MG ORAL TABS 1 po qd BUMETANIDE 08040233209 Active Simon Castillo MD Active AUGMENTIN 875-125 MG ORAL TABS 1 po BID x 10 days AMOXICILLIN-POT CLAVULANATE 71410870407 No Longer Active Simon Castillo MD Active PIOGLITAZONE HCL 30 MG ORAL TABS 1 po qd PIOGLITAZONE HCL 71954687407 Active Simon Castillo MD Active GLIMEPIRIDE 4 MG ORAL TABS 1 po BID GLIMEPIRIDE 90433547515 Active Simon Castillo MD Active ASPIRIN EC 81 MG ORAL TBEC 1 po qd ASPIRIN 31446794397 Active Simon Castillo MD Active CLOTRIMAZOLE 1 % EXT CREA Apply to affected area of feet twice daily PRN Rash CLOTRIMAZOLE 47808770732 No Longer Active Simon Castillo MD Active PREDNISONE 5 MG TAB 1 po BID PREDNISONE 23729040734 Active Simon Castillo MD Active FISH OIL 1000 MG CPDR 1 po BID OMEGA-3 FATTY ACIDS 04991222438 Active Simon Castillo MD Active LISINOPRIL 10 MG TABS 1 p qd LISINOPRIL 28104624226 Active Simon Castillo MD Active CLARITIN 10 MG TAB 1 tablet by mouth daily as needed for allergies LORATADINE 82011499008 No Longer Active Simon Castillo MD Active TRIAMCINOLONE ACETONIDE 0.1 % OINT Apply to affected areas TID for up to 2 weeks TRIAMCINOLONE ACETONIDE 88223299396 No Longer Active Simon Castillo MD Active LASIX 20 MG TAB 1 tablet by mouth daily x 2 days FUROSEMIDE 29132161774 No Longer Active Simon Castillo MD Active SULFASALAZINE 500 MG ORAL TBEC 2 tabs BID SULFASALAZINE 11471963127 No Longer Active Neto Oshea DO Active PREDNISONE 20 MG TAB 2 tabs daily for 3 days, 1 tab daily for 3 days, 1/2 tab daily for 2 days PREDNISONE 66545756183 No Longer Active 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 [employer] Active PREDNISONE 20 MG TAB 1 tablet daily for airway inflammation 02/25 PREDNISONE 71467491877 No Longer Active 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 [employer] Active AZITHROMYCIN 250 MG TABS 2 po qd x 1 day, then 1 po qd x 4 days AZITHROMYCIN 39451589576 No Longer Active 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 [employer] Active HYDROCODONE-ACETAMINOPHEN 5-325 MG TABS 1 tab by mouth 8 hours as needed for pain HYDROCODONE-ACETAMINOPHEN 36984509611 Active Simon Castillo MD Active TRAMADOL HCL 50 MG TABS 1 po q6hr PRN Pain TRAMADOL HCL 23776043367 No Longer Active Simon Castillo MD Active PREDNISONE 5 MG TABS 1 po qod PREDNISONE 35944793189 No Longer Active Simon Castillo MD Active SYMBICORT 160-4.5 MCG/ACT AERO 2 puff BID BUDESONIDE- FORMOTEROL FUMARATE 47081824535 No Longer Active Simon Castillo MD Active FLONASE 50 MCG/ACT SUSP 2 puffs in each nostril daily FLUTICASONE PROPIONATE 24226841281 No Longer Active Simon Castillo MD Active PREDNISONE 20 MG TAB 2 tabs daily for 5 days, then 1 daily for 5 days PREDNISONE 67314880347 No Longer Active Simon Castillo MD Active PREDNISONE 20 MG TAB 2 tabs daily for 5 days, then 1 daily for 5 days, then 0.5 for 4 days PREDNISONE 10048308554 No Longer Active Simon Castillo MD Active PREDNISONE 20 MG TAB 2 tabs daily for 3 days, 1 tab daily for 3 days, 1/2 tab daily for 2 days PREDNISONE 68153147505 No Longer Active Simon Castillo MD Active AZITHROMYCIN 250 MG TABS 2 po qd x 1 day, then 1 po qd x 4 days AZITHROMYCIN 10616301325 No Longer Active Simon Castillo MD Active CARVEDILOL 6.25 MG TABS 1 po BID CARVEDILOL 27472139573 Active Simon Castillo MD Active LISINOPRIL-HYDROCHLOROTHIAZIDE 20-12.5 MG TABS 1/2 tab by mouth daily LISINOPRIL-HYDROCHLOROTHIAZIDE 00378760169 No Longer Active Simon Castillo MD Active TRAMADOL HCL 50 MG TABS 1-2 tablets every 6 hours as needed for pain TRAMADOL HCL 65578179632 Active Giles Tatum APRN Active PREDNISONE 5 MG TAB Take one po qod PREDNISONE 77143890688 No Longer Active Simon Castillo MD Active GLYBURIDE 5 MG TAB Take one by mouth daily GLYBURIDE 57512173643 No Longer Active Simon Castillo MD Active LEVAQUIN 750 MG TABS 1 po qod x 5 doses LEVOFLOXACIN 24418195503 No Longer Active Simon Castillo MD Active CETIRIZINE HCL 10 MG TABS 1 po qd as needed for allergies CETIRIZINE HCL 56845839500 No Longer Active Simon Castillo MD Active BILBERRY CAPS 1 tab daily BILBERRY (VACCINIUM MYRTILLUS) CAPS 96869039911 Active Simon Castillo MD Active ATENOLOL 50 MG TABS Take one by mouth daily ATENOLOL 19315279523 No Longer Active Simon Castillo MD Active FLONASE 50 MCG/ACT SUSP 2 puffs in each nostril daily FLUTICASONE PROPIONATE 28164337477 No Longer Active Simon Castillo MD Active GLYBURIDE 5 MG TAB Take one by mouth daily GLYBURIDE 63388677672 No Longer Active Simon Castillo MD Active SYMBICORT 80-4.5 MCG/ACT AERO 2 puffs twice a day BUDESONIDE-FORMOTEROL FUMARATE 53234664976 No Longer Active Simon Castillo MD Active PREDNISONE 20 MG TAB 2 tabs daily for 4 days, 1 tab daily for 4 days, 1/2 tab daily for 4 days PREDNISONE 52262940893 No Longer Active Simon Castillo MD Active AMOXICILLIN 500 MG CAPS 2 po BID x 10 days AMOXICILLIN 23215562482 No Longer Active Simon Castillo MD Active METFORMIN HCL 1000 MG TABS 1 by [facility] twice a day METFORMIN HCL 26002481093 No Longer Active Simon Castillo MD Active LUTEIN-ZEAXANTHIN 6-1 MG TABS Take 2 by mouth daily LUTEIN-ZEAXANTHIN 27080873314 Active Simon Castillo MD Active IBUPROFEN 800 MG TABS Take 1 tab every 6 hrs prn IBUPROFEN 48556144944 No Longer Active Simon Castillo MD Active GLYBURIDE 2.5 MG TABS Take one by mouth daily GLYBURIDE 28657465857 No Longer Active Simon Castillo MD Active LANCETS MISC 2 qd LANCETS 91546286776 Active Pamela Conde Active ACACIA CONTOUR TEST STRP Use with testing twice daily GLUCOSE BLOOD 87213155739 Active Simon Castillo MD Active GLYBURIDE 2.5 MG TABS Take one by mouth daily GLYBURIDE 2.5 MG TABS 669542 GLYBURIDE Inactive PREDNISONE 20 MG TAB 2 tabs daily for 4 days, 1 tab daily for 4 days, 1/2 tab daily for 4 days PREDNISONE 20 MG TAB 436593 PREDNISONE Inactive SYMBICORT 80-4.5 MCG/ACT AERO 2 puffs twice a day SYMBICORT 80-4.5 MCG/ACT AERO BUDESONIDE-FORMOTEROL FUMARATE Inactive FLONASE 50 MCG/ACT SUSP 2 puffs in each nostril daily FLONASE 50 MCG/ACT SUSP 9850670 FLUTICASONE PROPIONATE Inactive ATENOLOL 50 MG TABS Take one by mouth daily ATENOLOL 50 MG TABS 972029 ATENOLOL Inactive CETIRIZINE HCL 10 MG TABS 1 po qd as needed for allergies CETIRIZINE HCL 10 MG TABS 1584560 CETIRIZINE HCL Inactive LEVAQUIN 750 MG TABS 1 po qod x 5 doses LEVAQUIN 750 MG TABS 124184 LEVOFLOXACIN Inactive GLYBURIDE 5 MG TAB Take one by mouth daily GLYBURIDE 5 MG TAB 473689 GLYBURIDE Inactive PREDNISONE 5 MG TAB Take one po qod PREDNISONE 5 MG TAB 045539 PREDNISONE Inactive PREDNISONE 20 MG TAB 2 tabs daily for 5 days, then 1 daily for 5 days PREDNISONE 20 MG TAB 507281 PREDNISONE Inactive FLONASE 50 MCG/ACT SUSP 2 puffs in each nostril daily FLONASE 50 MCG/ACT SUSP 0065296 FLUTICASONE PROPIONATE Inactive SYMBICORT 160-4.5 MCG/ACT AERO 2 puff BID SYMBICORT 160-4.5 MCG/ACT AERO BUDESONIDE-FORMOTEROL FUMARATE Inactive PREDNISONE 5 MG TABS 1 po qod PREDNISONE 5 MG TABS 253183 PREDNISONE Inactive PREDNISONE 20 MG TAB 1 tablet daily for airway inflammation 02/25 PREDNISONE 20 MG TAB 992504 PREDNISONE Inactive SULFASALAZINE 500 MG ORAL TBEC 2 tabs BID SULFASALAZINE 500 MG ORAL TBEC 305847 SULFASALAZINE Inactive LASIX 20 MG TAB 1 tablet by mouth daily x 2 days LASIX 20 MG TAB 543108 FUROSEMIDE Inactive CLARITIN 10 MG TAB 1 tablet by mouth daily as needed for allergies CLARITIN 10 MG TAB 557401 LORATADINE Inactive CLOTRIMAZOLE 1 % EXT CREA Apply to affected area of feet twice daily PRN Rash CLOTRIMAZOLE 1 % EXT CREA 193747 CLOTRIMAZOLE Inactive AMOXICILLIN 500 MG CAPS 2 po BID x 10 days AMOXICILLIN 500 MG CAPS 252229 AMOXICILLIN Inactive GLYBURIDE 5 MG TAB Take one by mouth daily GLYBURIDE 5 MG TAB 516267 GLYBURIDE Inactive AZITHROMYCIN 250 MG TABS 2 po qd x 1 day, then 1 po qd x 4 days AZITHROMYCIN 250 MG TABS 560365 AZITHROMYCIN Inactive PREDNISONE 20 MG TAB 2 tabs daily for 3 days, 1 tab daily for 3 days, 1/2 tab daily for 2 days PREDNISONE 20 MG TAB 978684 PREDNISONE Inactive PREDNISONE 20 MG TAB 2 tabs daily for 5 days, then 1 daily for 5 days, then 0.5 for 4 days PREDNISONE 20 MG TAB 418944 PREDNISONE Inactive AZITHROMYCIN 250 MG TABS 2 po qd x 1 day, then 1 po qd x 4 days AZITHROMYCIN 250 MG TABS 791031 AZITHROMYCIN Inactive PREDNISONE 20 MG TAB 2 tabs daily for 3 days, 1 tab daily for 3 days, 1/2 tab daily for 2 days PREDNISONE 20 MG TAB 158582 PREDNISONE Inactive TRIAMCINOLONE ACETONIDE 0.1 % OINT Apply to affected areas TID for up to 2 weeks TRIAMCINOLONE ACETONIDE 0.1 % OINT 2323592 TRIAMCINOLONE ACETONIDE Inactive AUGMENTIN 875-125 MG ORAL TABS 1 po BID x 10 days AUGMENTIN 875-125 MG ORAL TABS 586027 AMOXICILLIN-POT CLAVULANATE Inactive Immunizations Vaccine Administration Date [...] Peptide - Chemistry sodium, serum 142 mmol/L 051-814 8051/07/18 potassium, serum 5.0 mmol/L 3.5-5.2 chloride, serum [...] Panel - Chemistry sodium, serum 140 mmol/L 371-163 1859/07/13 carbon dioxide, venous blood 23.7 mmol/L 21.0-32.0 [...] 7.8 % 4.3-6.0 Lab Report: Lipid Panel, [facility], Comp. Metabolic Panel - Chemistry cholesterol, serum 126 mg/dL 535-522 2396/02/07 triglyceride, serum, fasting 83 mg/dL 30-200 HDL cholesterol, serum 70 mg/dL 32-96 LDL cholesterol, serum 39 mg/dL 0-130 hemoglobin A1C, blood, as % of total hemoglobin 8.3 % 4.3-6.0 sodium, serum 141 mmol/L 716-541 4227/02/07 carbon dioxide, venous blood 26.0 mmol/L 21.0-32.0 [...] 0.00-1.00 Encounters Code Encounter Date Provider Facility CPT-93813 Level 4 Est. Patient 09:54:36 CDT Simon Castillo MD [facility] CPT-68190 Level 4 Est. Patient 08:48:38 CDT Simon Castillo MD [facility] CPT-15763 Level 4 Est. Patient 09:54:08 CDT Simon Castillo MD [facility] CPT-88853 Level 4 Est. Patient 16:11:23 CDT Simon Castillo MD [facility] CPT-34317 Level 4 Est. Patient 09:29:28 [employer]LINDER TESTER Simon Castillo [facility] CPT-45572 Level 3 Est. Patient 09:18:25 CDT Simon Castillo MD [facility] CPT-73365 Level 4 Est. Patient 11:51:23 CDT Simon Castillo MD [facility] CPT-58290 Level 4 Est. Patient 14:32:04 CDT Neto Oshea DO [facility] CPT-98927 Level 3 Est. Patient 08:41:43 CDT Giles Tatum [facility] CPT-21788 Level 3 Est. Patient 08:40:53 CDT Giles Tatum [facility] CPT-25931 Level 3 Est. Patient 08:36:52 CDT Giles Tatum [facility] CPT-00814 Level 3 Est. Patient 09:08:44 CDT Giles Tatum [facility] CPT-15809 Level 4 Est. Patient 09:17:32 [employer]LINDER TESTER Simon Castillo MD [facility] CPT-35622 Level 3 Est. Patient 11:22:22 CYLINDER TESTER Simon Castillo MD [facility] CPT-41404 Level 3 Est. Patient 09:02:14 CDT Simon Castillo MD [facility] CPT-30058 Level 4 Est. Patient 08:47:25 CDT Simon Castillo MD [facility] CPT-03017 Level 4 Est. Patient 10:17:25 CDT Simon Castillo MD [facility] CPT-00071 Level 4 Est. Patient 10:10:09 CYLINDER TESTER Simon Castillo MD [facility] CPT-05674 Level 4 Est. Patient 11:48:19 CDT Simon Castillo MD [facility] CPT-87860 Level 4 Est. Patient 08:59:29 CDT Simon Castillo MD [facility] CPT-65351 Level 4 Est. Patient 10:52:51 CYLINDER TESTER Simon Castillo MD [facility] CPT-84847 Level 4 Est. Patient 11:50:30 CDT Simon Castillo MD [facility] CPT-34598 Level 4 Est. Patient 09:54:46 CDT Simon Castillo MD [facility] CPT-32677 Level 3 Est. Patient 11:10:14 CDT Simon Castillo MD [facility] CPT-34521 Level 4 Est. Patient 09:44:02 CDT Simon Castillo MD [facility] CPT-72445 Level 3 Est. Patient 09:27:48 CDT Simon Castillo MD [facility] CPT-56892 Level 3 Est. Patient 09:58:06 CYLINDER TESTER Simon Castillo MD [facility] CPT-37911 Level 3 Est. Patient 09:51:35 CDT Simon Castillo MD [facility] Procedures Code Procedure Name Date Entry Date Standard Description CPT-Cryo Cryotherapy 09:54:37 CDT CPT-29363 First Vx - Ix admin for Medicare patients 09:13:10 CDT CPT-07709 Fluzone High-Dose Intramuscular Suspension 09:13:10 CDT CPT-G0439 Subsequent Annual Wellness Exam 09:41:17 CDT CPT-67400 Lipid - LAB USE ONLY 17:15:33 CDT CPT-75748 HGBA1C - LAB USE ONLY 17:15:33 CDT CPT-24986 CMP - LAB USE ONLY 17:15:33 CDT CPT-90695 Venipuncture Draw Fee 17:15:33 CDT CPT-[facility] Transitional Care Mgmt-High 11:01:28 CYLINDER TESTER CPT-68543 First Vx - Ix admin for Medicare patients 17:33:39 CDT CPT-93719 Fluzone High-Dose Intramuscular Suspension 17:33:39 CDT CPT-G0438 Initial Annual Wellness Exam 08:57:30 CDT CPT-99095 Chest 2V Frontal and Lat - XRAY USE ONLY 09:00:14 CDT CPT-80656 Venipuncture Draw Fee 13:33:02 CDT CPT-01708 Bone Density 09:37:49 CYLINDER TESTER CPT-28024 Fluzone High Dose 17:20:42 CDT CPT-73080 Prevnar 13 17:20:42 CDT CPT-44405 Administration 2+ single or combination vaccines inc oral 17:20:42 CDT CPT-53880 Administration single or combination vaccine inc oral 17 :20:42 CDT CPT-06330 Hand comp min 3V 09:24:38 CDT CPT-18077 Venipuncture Draw Fee 08:07:29 CYLINDER TESTER CPT-23122 Venipuncture Draw Fee 09:02:51 CYLINDER TESTER CPT-09979 Venipuncture Draw Fee 12:45:08 CYLINDER TESTER CPT-00097 Venipuncture Draw Fee 09:25:31 CDT CPT-G0008 Administration of Influenza Virus Vaccine 14:41:29 CDT CPT-90838 Fluzone High-Dose Intramuscular Suspension 14:41:29 CDT CPT-Cryo Cryotherapy 11:48:20 CDT CPT-72124 EKG Trac and Interp 09:21:58 CDT CPT-40559 Chest 2V Frontal and Lat 09:21:58 CDT CPT-Cryo Cryotherapy 10:54:51 CYLINDER TESTER CPT-82822 Administration 2+ single or combination vaccines inc oral 10:42:19 CDT CPT-38416 Administration single or combination vaccine inc oral 10 :42:19 CDT CPT-31140 Pneumovax 10:42:19 CDT CPT-26850 Influenza High Dose age 65+ 10:42:19 CDT CPT-35144 Administration single or combination vaccine inc oral 13 :18:54 CDT CPT-66315 Influenza High Dose age 65+ 13:18:54 CDT CPT-16258 Venipuncture Draw Fee 11:53:16 CDT CPT-25781 LS spine comp w obliq 11:03:13 CDT CPT-Cryo Cryotherapy 08:27:16 CYLINDER TESTER CPT-09781 Administration single or combination vaccine inc oral 10 :56:34 CDT CPT-32138 Influenza High Dose age 65+ 10:56:34 CDT
--- OUTSIDE RECORDS SUMMARY | 2018-03-31 16:57 | XMS REPORT | Clinical Summary ---
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 Simon Castillo MD Hand pain, [...] MG ORAL TABS 1 po qd BUMETANIDE 27319290358 Active Simon Castillo MD Active AUGMENTIN 875-125 MG ORAL TABS 1 po BID x 10 days AMOXICILLIN-POT CLAVULANATE 52074262696 No Longer Active Simon Castillo MD Active PIOGLITAZONE HCL 30 MG ORAL TABS 1 po qd PIOGLITAZONE HCL 83925332294 Active Simon Castillo MD Active GLIMEPIRIDE 4 MG ORAL TABS 1 po BID GLIMEPIRIDE 04084305570 Active Simon Castillo MD Active ASPIRIN EC 81 MG ORAL TBEC 1 po qd ASPIRIN 63395010661 Active Simon Castillo MD Active CLOTRIMAZOLE 1 % EXT CREA Apply to affected area of feet twice daily PRN Rash CLOTRIMAZOLE 43736870779 No Longer Active Simon Castillo MD Active PREDNISONE 5 MG TAB 1 po BID PREDNISONE 83420192272 Active Simon Castillo MD Active FISH OIL 1000 MG CPDR 1 po BID OMEGA-3 FATTY ACIDS 33442324277 Active Simon Castillo MD Active LISINOPRIL 10 MG TABS 1 p qd LISINOPRIL 03636272364 Active Simon Castillo MD Active CLARITIN 10 MG TAB 1 tablet by mouth daily as needed for allergies LORATADINE 30058864572 No Longer Active Simon Castillo MD Active TRIAMCINOLONE ACETONIDE 0.1 % OINT Apply to affected areas TID for up to 2 weeks TRIAMCINOLONE ACETONIDE 32168830231 No Longer Active Simon Castillo MD Active LASIX 20 MG TAB 1 tablet by mouth daily x 2 days FUROSEMIDE 64669360609 No Longer Active Simon Castillo MD Active SULFASALAZINE 500 MG ORAL TBEC 2 tabs BID SULFASALAZINE 78009201258 No Longer Active Neto Oshea DO Active PREDNISONE 20 MG TAB 2 tabs daily for 3 days, 1 tab daily for 3 days, 1/2 tab daily for 2 days PREDNISONE 43086298897 No Longer Active 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 KNIFE CUTTER Active PREDNISONE 20 MG TAB 1 tablet daily for airway inflammation 02/25 PREDNISONE 09114730216 No Longer Active 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 KNIFE CUTTER Active AZITHROMYCIN 250 MG TABS 2 po qd x 1 day, then 1 po qd x 4 days AZITHROMYCIN 72962645771 No Longer Active 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 KNIFE CUTTER Active HYDROCODONE-ACETAMINOPHEN 5-325 MG TABS 1 tab by mouth 8 hours as needed for pain HYDROCODONE-ACETAMINOPHEN 99835793662 Active Simon Castillo MD Active TRAMADOL HCL 50 MG TABS 1 po q6hr PRN Pain TRAMADOL HCL 70766590935 No Longer Active Simon Castillo MD Active PREDNISONE 5 MG TABS 1 po qod PREDNISONE 56074481927 No Longer Active Simon Castillo MD Active SYMBICORT 160-4.5 MCG/ACT AERO 2 puff BID BUDESONIDE- FORMOTEROL FUMARATE 99339242288 No Longer Active Simon Castillo MD Active FLONASE 50 MCG/ACT SUSP 2 puffs in each nostril daily FLUTICASONE PROPIONATE 06573608072 No Longer Active Simon Castillo MD Active PREDNISONE 20 MG TAB 2 tabs daily for 5 days, then 1 daily for 5 days PREDNISONE 12826919998 No Longer Active Simon Castillo MD Active PREDNISONE 20 MG TAB 2 tabs daily for 5 days, then 1 daily for 5 days, then 0.5 for 4 days PREDNISONE 22026229863 No Longer Active Simon Castillo MD Active PREDNISONE 20 MG TAB 2 tabs daily for 3 days, 1 tab daily for 3 days, 1/2 tab daily for 2 days PREDNISONE 54128545570 No Longer Active Simon Castillo MD Active AZITHROMYCIN 250 MG TABS 2 po qd x 1 day, then 1 po qd x 4 days AZITHROMYCIN 40495736131 No Longer Active Simon Castillo MD Active CARVEDILOL 6.25 MG TABS 1 po BID CARVEDILOL 75165739454 Active Simon Castillo MD Active LISINOPRIL-HYDROCHLOROTHIAZIDE 20-12.5 MG TABS 1/2 tab by mouth daily LISINOPRIL-HYDROCHLOROTHIAZIDE 77678515689 No Longer Active Simon Castillo MD Active TRAMADOL HCL 50 MG TABS 1-2 tablets every 6 hours as needed for pain TRAMADOL HCL 25382833572 Active Giles Tatum APRN Active PREDNISONE 5 MG TAB Take one po qod PREDNISONE 45341736140 No Longer Active Simon Castillo MD Active GLYBURIDE 5 MG TAB Take one by mouth daily GLYBURIDE 71214832065 No Longer Active Simon Castillo MD Active LEVAQUIN 750 MG TABS 1 po qod x 5 doses LEVOFLOXACIN 34537186601 No Longer Active Simon Castillo MD Active CETIRIZINE HCL 10 MG TABS 1 po qd as needed for allergies CETIRIZINE HCL 45373081161 No Longer Active Simon Castillo MD Active BILBERRY CAPS 1 tab daily BILBERRY (VACCINIUM MYRTILLUS) CAPS 86722613818 Active Simon Castillo MD Active ATENOLOL 50 MG TABS Take one by mouth daily ATENOLOL 71652571245 No Longer Active Simon Castillo MD Active FLONASE 50 MCG/ACT SUSP 2 puffs in each nostril daily FLUTICASONE PROPIONATE 65969790761 No Longer Active Simon Castillo MD Active GLYBURIDE 5 MG TAB Take one by mouth daily GLYBURIDE 77371888116 No Longer Active Simon Castillo MD Active SYMBICORT 80-4.5 MCG/ACT AERO 2 puffs twice a day BUDESONIDE-FORMOTEROL FUMARATE 45038299681 No Longer Active Simon Castillo MD Active PREDNISONE 20 MG TAB 2 tabs daily for 4 days, 1 tab daily for 4 days, 1/2 tab daily for 4 days PREDNISONE 40564085671 No Longer Active Simon Castillo MD Active AMOXICILLIN 500 MG CAPS 2 po BID x 10 days AMOXICILLIN 04602877510 No Longer Active Simon Castillo MD Active METFORMIN HCL 1000 MG TABS 1 by [facility] twice a day METFORMIN HCL 58338963909 No Longer Active Simon Castillo MD Active LUTEIN-ZEAXANTHIN 6-1 MG TABS Take 2 by mouth daily LUTEIN-ZEAXANTHIN 14460518403 Active Simon Castillo MD Active IBUPROFEN 800 MG TABS Take 1 tab every 6 hrs prn IBUPROFEN 15416320118 No Longer Active Simon Castillo MD Active GLYBURIDE 2.5 MG TABS Take one by mouth daily GLYBURIDE 42245273290 No Longer Active Simon Castillo MD Active LANCETS MISC 2 qd LANCETS 15735033538 Active Pamela Conde Active ACACIA CONTOUR TEST STRP Use with testing twice daily GLUCOSE BLOOD 20249121451 Active Simon Castillo MD Active GLYBURIDE 2.5 MG TABS Take one by mouth daily GLYBURIDE 2.5 MG TABS 176661 GLYBURIDE Inactive PREDNISONE 20 MG TAB 2 tabs daily for 4 days, 1 tab daily for 4 days, 1/2 tab daily for 4 days PREDNISONE 20 MG TAB 899949 PREDNISONE Inactive SYMBICORT 80-4.5 MCG/ACT AERO 2 puffs twice a day SYMBICORT 80-4.5 MCG/ACT AERO BUDESONIDE-FORMOTEROL FUMARATE Inactive FLONASE 50 MCG/ACT SUSP 2 puffs in each nostril daily FLONASE 50 MCG/ACT SUSP 1170082 FLUTICASONE PROPIONATE Inactive ATENOLOL 50 MG TABS Take one by mouth daily ATENOLOL 50 MG TABS 989494 ATENOLOL Inactive CETIRIZINE HCL 10 MG TABS 1 po qd as needed for allergies CETIRIZINE HCL 10 MG TABS 6941032 CETIRIZINE HCL Inactive LEVAQUIN 750 MG TABS 1 po qod x 5 doses LEVAQUIN 750 MG TABS 905370 LEVOFLOXACIN Inactive GLYBURIDE 5 MG TAB Take one by mouth daily GLYBURIDE 5 MG TAB 597716 GLYBURIDE Inactive PREDNISONE 5 MG TAB Take one po qod PREDNISONE 5 MG TAB 246556 PREDNISONE Inactive PREDNISONE 20 MG TAB 2 tabs daily for 5 days, then 1 daily for 5 days PREDNISONE 20 MG TAB 350678 PREDNISONE Inactive FLONASE 50 MCG/ACT SUSP 2 puffs in each nostril daily FLONASE 50 MCG/ACT SUSP 2540440 FLUTICASONE PROPIONATE Inactive SYMBICORT 160-4.5 MCG/ACT AERO 2 puff BID SYMBICORT 160-4.5 MCG/ACT AERO BUDESONIDE-FORMOTEROL FUMARATE Inactive PREDNISONE 5 MG TABS 1 po qod PREDNISONE 5 MG TABS 626224 PREDNISONE Inactive PREDNISONE 20 MG TAB 1 tablet daily for airway inflammation 02/25 PREDNISONE 20 MG TAB 252396 PREDNISONE Inactive SULFASALAZINE 500 MG ORAL TBEC 2 tabs BID SULFASALAZINE 500 MG ORAL TBEC 406999 SULFASALAZINE Inactive LASIX 20 MG TAB 1 tablet by mouth daily x 2 days LASIX 20 MG TAB 751765 FUROSEMIDE Inactive CLARITIN 10 MG TAB 1 tablet by mouth daily as needed for allergies CLARITIN 10 MG TAB 205752 LORATADINE Inactive CLOTRIMAZOLE 1 % EXT CREA Apply to affected area of feet twice daily PRN Rash CLOTRIMAZOLE 1 % EXT CREA 709230 CLOTRIMAZOLE Inactive AMOXICILLIN 500 MG CAPS 2 po BID x 10 days AMOXICILLIN 500 MG CAPS 516980 AMOXICILLIN Inactive GLYBURIDE 5 MG TAB Take one by mouth daily GLYBURIDE 5 MG TAB 324342 GLYBURIDE Inactive AZITHROMYCIN 250 MG TABS 2 po qd x 1 day, then 1 po qd x 4 days AZITHROMYCIN 250 MG TABS 343173 AZITHROMYCIN Inactive PREDNISONE 20 MG TAB 2 tabs daily for 3 days, 1 tab daily for 3 days, 1/2 tab daily for 2 days PREDNISONE 20 MG TAB 865355 PREDNISONE Inactive PREDNISONE 20 MG TAB 2 tabs daily for 5 days, then 1 daily for 5 days, then 0.5 for 4 days PREDNISONE 20 MG TAB 505268 PREDNISONE Inactive AZITHROMYCIN 250 MG TABS 2 po qd x 1 day, then 1 po qd x 4 days AZITHROMYCIN 250 MG TABS 213429 AZITHROMYCIN Inactive PREDNISONE 20 MG TAB 2 tabs daily for 3 days, 1 tab daily for 3 days, 1/2 tab daily for 2 days PREDNISONE 20 MG TAB 567948 PREDNISONE Inactive TRIAMCINOLONE ACETONIDE 0.1 % OINT Apply to affected areas TID for up to 2 weeks TRIAMCINOLONE ACETONIDE 0.1 % OINT 0774952 TRIAMCINOLONE ACETONIDE Inactive AUGMENTIN 875-125 MG ORAL TABS 1 po BID x 10 days AUGMENTIN 875-125 MG ORAL TABS 509584 AMOXICILLIN-POT CLAVULANATE Inactive Immunizations Vaccine Administration Date [...] Peptide - Chemistry sodium, serum 142 mmol/L 677-940 8592/07/18 potassium, serum 5.0 mmol/L 3.5-5.2 chloride, serum [...] Panel - Chemistry sodium, serum 140 mmol/L 172-680 5732/07/13 carbon dioxide, venous blood 23.7 mmol/L 21.0-32.0 [...] 7.8 % 4.3-6.0 Lab Report: Lipid Panel, [facility], Comp. Metabolic Panel - Chemistry cholesterol, serum 126 mg/dL 290-332 4522/02/07 triglyceride, serum, fasting 83 mg/dL 30-200 HDL cholesterol, serum 70 mg/dL 32-96 LDL cholesterol, serum 39 mg/dL 0-130 hemoglobin A1C, blood, as % of total hemoglobin 8.3 % 4.3-6.0 sodium, serum 141 mmol/L 019-357 9431/02/07 carbon dioxide, venous blood 26.0 mmol/L 21.0-32.0 [...] 0.00-1.00 Encounters Code Encounter Date Provider Facility CPT-55585 Level 4 Est. Patient 09:54:36 CDT Simon Castillo MD [facility] CPT-08801 Level 4 Est. Patient 08:48:38 CDT Simon Castillo MD [facility] CPT-54566 Level 4 Est. Patient 09:54:08 CDT Simon Castillo MD [facility] CPT-64005 Level 4 Est. Patient 16:11:23 CDT Simon Castillo MD [facility] CPT-72437 Level 4 Est. Patient 09:29:28 CASING BLOWER Simon Castillo [facility] CPT-71439 Level 3 Est. Patient 09:18:25 CDT Simon Castillo MD [facility] CPT-57791 Level 4 Est. Patient 11:51:23 CDT Simon Castillo MD [facility] CPT-29476 Level 4 Est. Patient 14:32:04 CDT Neto Oshea DO [facility] CPT-07058 Level 3 Est. Patient 08:41:43 CDT Giles Tatum [facility] CPT-53047 Level 3 Est. Patient 08:40:53 CDT Giles Tatum [facility] CPT-10987 Level 3 Est. Patient 08:36:52 CDT Giles Tatum [facility] CPT-07397 Level 3 Est. Patient 09:08:44 CDT Giles Tatum [facility] CPT-29719 Level 4 Est. Patient 09:17:32 CASING BLOWER Simon Castillo MD [facility] CPT-55357 Level 3 Est. Patient 11:22:22 CASING BLOWER Simon Castillo MD [facility] CPT-52565 Level 3 Est. Patient 09:02:14 CDT Simon Castillo MD [facility] CPT-36504 Level 4 Est. Patient 08:47:25 CDT Simon Castillo MD [facility] CPT-57406 Level 4 Est. Patient 10:17:25 CDT Simon Castillo MD [facility] CPT-60703 Level 4 Est. Patient 10:10:09 CASING BLOWER Simon Castillo MD [facility] CPT-52433 Level 4 Est. Patient 11:48:19 CDT Simon Castillo MD [facility] CPT-54314 Level 4 Est. Patient 08:59:29 CDT Simon Castillo MD [facility] CPT-39702 Level 4 Est. Patient 10:52:51 CASING BLOWER Simon Castillo MD [facility] CPT-09862 Level 4 Est. Patient 11:50:30 CDT Simon Castillo MD [facility] CPT-62892 Level 4 Est. Patient 09:54:46 CDT Simon Castillo MD [facility] CPT-34894 Level 3 Est. Patient 11:10:14 CDT Simon Castillo MD [facility] CPT-58846 Level 4 Est. Patient 09:44:02 CDT Simon Castillo MD [facility] CPT-68813 Level 3 Est. Patient 09:27:48 CDT Simon Castillo MD [facility] CPT-84147 Level 3 Est. Patient 09:58:06 CASING BLOWER Simon Castillo MD [facility] CPT-08212 Level 3 Est. Patient 09:51:35 CDT Simon Castillo MD [facility] Procedures Code Procedure Name Date Entry Date Standard Description CPT-Cryo Cryotherapy 09:54:37 CDT CPT-40306 First Vx - Ix admin for Medicare patients 09:13:10 CDT CPT-71508 Fluzone High-Dose Intramuscular Suspension 09:13:10 CDT CPT-G0439 Subsequent Annual Wellness Exam 09:41:17 CDT CPT-54575 Lipid - LAB USE ONLY 17:15:33 CDT CPT-85923 HGBA1C - LAB USE ONLY 17:15:33 CDT CPT-05014 CMP - LAB USE ONLY 17:15:33 CDT CPT-88535 Venipuncture Draw Fee 17:15:33 CDT CPT-[facility] Transitional Care Mgmt-High 11:01:28 CASING BLOWER CPT-69593 First Vx - Ix admin for Medicare patients 17:33:39 CDT CPT-50508 Fluzone High-Dose Intramuscular Suspension 17:33:39 CDT CPT-G0438 Initial Annual Wellness Exam 08:57:30 CDT CPT-17868 Chest 2V Frontal and Lat - XRAY USE ONLY 09:00:14 CDT CPT-98792 Venipuncture Draw Fee 13:33:02 CDT CPT-33122 Bone Density 09:37:49 CASING BLOWER CPT-50624 Fluzone High Dose 17:20:42 CDT CPT-38299 Prevnar 13 17:20:42 CDT CPT-02369 Administration 2+ single or combination vaccines inc oral 17:20:42 CDT CPT-07369 Administration single or combination vaccine inc oral 17 :20:42 CDT CPT-77823 Hand comp min 3V 09:24:38 CDT CPT-58802 Venipuncture Draw Fee 08:07:29 CASING BLOWER CPT-82379 Venipuncture Draw Fee 09:02:51 CASING BLOWER CPT-43430 Venipuncture Draw Fee 12:45:08 CASING BLOWER CPT-78213 Venipuncture Draw Fee 09:25:31 CDT CPT-G0008 Administration of Influenza Virus Vaccine 14:41:29 CDT CPT-92743 Fluzone High-Dose Intramuscular Suspension 14:41:29 CDT CPT-Cryo Cryotherapy 11:48:20 CDT CPT-69730 EKG Trac and Interp 09:21:58 CDT CPT-44802 Chest 2V Frontal and Lat 09:21:58 CDT CPT-Cryo Cryotherapy 10:54:51 CASING BLOWER CPT-01252 Administration 2+ single or combination vaccines inc oral 10:42:19 CDT CPT-63011 Administration single or combination vaccine inc oral 10 :42:19 CDT CPT-04197 Pneumovax 10:42:19 CDT CPT-70395 Influenza High Dose age 65+ 10:42:19 CDT CPT-03715 Administration single or combination vaccine inc oral 13 :18:54 CDT CPT-56611 Influenza High Dose age 65+ 13:18:54 CDT CPT-49449 Venipuncture Draw Fee 11:53:16 CDT CPT-52722 LS spine comp w obliq 11:03:13 CDT CPT-Cryo Cryotherapy 08:27:16 CASING BLOWER CPT-15108 Administration single or combination vaccine inc oral 10 :56:34 CDT CPT-11547 Influenza High Dose age 65+ 10:56:34 CDT
--- OUTSIDE RECORDS SUMMARY | 2018-03-31 16:58 | XMS REPORT | Clinical Summary ---
Author Author Admin, [facility] Organization [employer] Address Unknown Phone Unavailable Allergies, Adverse Reactions, Alerts Allergy Name Reaction Description Start Date Severity Status Provider No Known Allergies Taylor Andres RPT,RMA Conditions or Problems Problem Name Problem Code [...] Simon Castillo MD Rheumatoid arthritis Steroid use, jail V58.65 Resolved Simon Castillo MD Long-term (current) [...] Rheumatoid arthritis Pharyngitis 462 Active 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 INVOICE CONTROL CLERK Acute pharyngitis Dyspnea 786.09 Active 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 INVOICE CONTROL CLERK Other dyspnea and respiratory abnormality Peripheral edema 782.3 Active 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 INVOICE CONTROL CLERK Edema FH DIABETES ICD-V18.0 Inactive Simon Castillo [...] Castillo MD Hand pain, bilateral ICD-729.5 Kerry aCstillo MD Medication List Medication Instructions Start Date Stop Date Generic Name NDC Status Provider Patient Instruction LASIX 20 MG TAB 1 tablet by mouth daily x 2 days FUROSEMIDE 74805200532 Active Neto Oshea DO Active SULFASALAZINE 500 MG ORAL TBEC 2 tabs BID SULFASALAZINE 14294397978 No Longer Active Neto Oshea DO Active PREDNISONE 20 MG TAB 2 tabs daily for 3 days, 1 tab daily for 3 days, 1/2 tab daily for 2 days PREDNISONE 73432921737 Active 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 INVOICE CONTROL CLERK Active PREDNISONE 20 MG TAB 1 tablet daily for airway inflammation 02/25 PREDNISONE 50281106338 No Longer Active 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 INVOICE CONTROL CLERK Active CLARITIN 10 MG TAB 1 tablet by mouth daily as needed for allergies LORATADINE 73269075847 Active 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 INVOICE CONTROL CLERK Active AZITHROMYCIN 250 MG TABS 2 po qd x 1 day, then 1 po qd x 4 days AZITHROMYCIN 88777730465 No Longer Active 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 INVOICE CONTROL CLERK Active GLIMEPIRIDE 2 MG ORAL TABS 1 po q a.m. GLIMEPIRIDE 00768131615 Active Simon Castillo MD Active HYDROCODONE-ACETAMINOPHEN 5-325 MG TABS 1 tab by mouth 8 hours as needed for pain HYDROCODONE-ACETAMINOPHEN 25429624064 Active Simon Castillo MD Active TRAMADOL HCL 50 MG TABS 1 po q6hr PRN Pain TRAMADOL HCL 72546497446 No Longer Active Simon Castillo MD Active PREDNISONE 5 MG TAB 1-2 tabs daily for rheumatoid arthritis PREDNISONE 18717476081 Active Simon Castillo MD Active PREDNISONE 5 MG TABS 1 po qod PREDNISONE 62638429418 No Longer Active Simon Castillo MD Active SYMBICORT 160-4.5 MCG/ACT AERO 2 puff BID BUDESONIDE- FORMOTEROL FUMARATE 01890126352 No Longer Active Simon Castillo MD Active FLONASE 50 MCG/ACT SUSP 2 puffs in each nostril daily FLUTICASONE PROPIONATE 37271329289 No Longer Active Simon Castillo MD Active PREDNISONE 20 MG TAB 2 tabs daily for 5 days, then 1 daily for 5 days PREDNISONE 59860764899 No Longer Active Simon Castillo MD Active PREDNISONE 20 MG TAB 2 tabs daily for 5 days, then 1 daily for 5 days, then 0.5 for 4 days PREDNISONE 67310688684 No Longer Active Simon Castillo MD Active CLOTRIMAZOLE 1 % EXT CREA Apply to affected area of feet twice daily PRN Rash CLOTRIMAZOLE 14597358468 Active Simon Castillo MD Active PREDNISONE 20 MG TAB 2 tabs daily for 3 days, 1 tab daily for 3 days, 1/2 tab daily for 2 days PREDNISONE 78154752040 No Longer Active Simon Castillo MD Active AZITHROMYCIN 250 MG TABS 2 po qd x 1 day, then 1 po qd x 4 days AZITHROMYCIN 09345307459 No Longer Active Simon Castillo MD Active LISINOPRIL 10 MG TABS 1 tablet by mouth daily LISINOPRIL 44234848854 Active Simon Castillo MD Active CARVEDILOL 6.25 MG TABS 1 po BID CARVEDILOL 60575367233 Active Simon Castillo MD Active LISINOPRIL-HYDROCHLOROTHIAZIDE 20-12.5 MG TABS 1/2 tab by mouth daily LISINOPRIL-HYDROCHLOROTHIAZIDE 03733394541 No Longer Active Simon Castillo MD Active TRAMADOL HCL 50 MG TABS 1-2 tablets every 6 hours as needed for pain TRAMADOL HCL 19784261950 Active Giles Tatum APRN Active PREDNISONE 5 MG TAB Take one po qod PREDNISONE 91688959448 No Longer Active Simon Castillo MD Active GLYBURIDE 5 MG TAB Take one by mouth daily GLYBURIDE 95261490928 No Longer Active Simon Castillo MD Active LEVAQUIN 750 MG TABS 1 po qod x 5 doses LEVOFLOXACIN 39692121739 No Longer Active Simon Castillo MD Active CETIRIZINE HCL 10 MG TABS 1 po qd as needed for allergies CETIRIZINE HCL 55811225085 No Longer Active Simon Castillo MD Active FISH OIL 1000 MG CPDR 1 pill by mouth twice daily for cholesterol OMEGA -3 FATTY ACIDS 53301784172 Active Simon Castillo MD Active BILBERRY CAPS 1 tab daily BILBERRY (VACCINIUM MYRTILLUS) CAPS 61860328755 Active Simon Castillo MD Active ATENOLOL 50 MG TABS Take one by mouth daily ATENOLOL 02738701788 No Longer Active Simon Castillo MD Active FLONASE 50 MCG/ACT SUSP 2 puffs in each nostril daily FLUTICASONE PROPIONATE 28029829039 No Longer Active Simon Castillo MD Active GLYBURIDE 5 MG TAB Take one by mouth daily GLYBURIDE 20995542532 No Longer Active Simon Castillo MD Active SYMBICORT 80-4.5 MCG/ACT AERO 2 puffs twice a day BUDESONIDE-FORMOTEROL FUMARATE 43634447718 No Longer Active Simon Castillo MD Active PREDNISONE 20 MG TAB 2 tabs daily for 4 days, 1 tab daily for 4 days, 1/2 tab daily for 4 days PREDNISONE 53411586400 No Longer Active Simon Castillo MD Active AMOXICILLIN 500 MG CAPS 2 po BID x 10 days AMOXICILLIN 91352793077 No Longer Active Simon Castillo MD Active METFORMIN HCL 1000 MG TABS 1 by mounth twice a day METFORMIN HCL 55572796697 No Longer Active Simon Castillo MD Active LUTEIN-ZEAXANTHIN 6-1 MG TABS Take 2 by mouth daily LUTEIN-ZEAXANTHIN 47278388086 Active Simon Castillo MD Active IBUPROFEN 800 MG TABS Take 1 tab every 6 hrs prn IBUPROFEN 69830589017 No Longer Active Simon Castillo MD Active GLYBURIDE 2.5 MG TABS Take one by mouth daily GLYBURIDE 79531766135 No Longer Active Simon Castillo MD Active LANCETS MISC 2 qd LANCETS 63786733263 Active Pamela Conde Active ACACIA CONTOUR TEST STRP Use with testing twice daily GLUCOSE BLOOD 43545319416 Active Simon Castillo MD Active ACACIA ASPIRIN 325 MG TABS Take one by mouth daily ASPIRIN 62342258351 Active Pamela Conde Active GLYBURIDE 2.5 MG TABS Take one by mouth daily GLYBURIDE 2.5 MG TABS 652018 GLYBURIDE Inactive PREDNISONE 20 MG TAB 2 tabs daily for 4 days, 1 tab daily for 4 days, 1/2 tab daily for 4 days PREDNISONE 20 MG TAB 580396 PREDNISONE Inactive SYMBICORT 80-4.5 MCG/ACT AERO 2 puffs twice a day SYMBICORT 80-4.5 MCG/ACT AERO BUDESONIDE-FORMOTEROL FUMARATE Inactive FLONASE 50 MCG/ACT SUSP 2 puffs in each nostril daily FLONASE 50 MCG/ACT SUSP 214571 FLUTICASONE PROPIONATE Inactive ATENOLOL 50 MG TABS Take one by mouth daily ATENOLOL 50 MG TABS 878960 ATENOLOL Inactive CETIRIZINE HCL 10 MG TABS 1 po qd as needed for allergies CETIRIZINE HCL 10 MG TABS 8961199 CETIRIZINE HCL Inactive LEVAQUIN 750 MG TABS 1 po qod x 5 doses LEVAQUIN 750 MG TABS 855527 LEVOFLOXACIN Inactive GLYBURIDE 5 MG TAB Take one by mouth daily GLYBURIDE 5 MG TAB 493220 GLYBURIDE Inactive PREDNISONE 5 MG TAB Take one po qod PREDNISONE 5 MG TAB 476861 PREDNISONE Inactive PREDNISONE 20 MG TAB 2 tabs daily for 5 days, then 1 daily for 5 days PREDNISONE 20 MG TAB 712785 PREDNISONE Inactive FLONASE 50 MCG/ACT SUSP 2 puffs in each nostril daily FLONASE 50 MCG/ACT SUSP 994813 FLUTICASONE PROPIONATE Inactive SYMBICORT 160-4.5 MCG/ACT AERO 2 puff BID SYMBICORT 160-4.5 MCG/ACT AERO BUDESONIDE-FORMOTEROL FUMARATE Inactive PREDNISONE 5 MG TABS 1 po qod PREDNISONE 5 MG TABS 493058 PREDNISONE Inactive PREDNISONE 20 MG TAB 1 tablet daily for airway inflammation 02/25 PREDNISONE 20 MG TAB 270765 PREDNISONE Inactive SULFASALAZINE 500 MG ORAL TBEC 2 tabs BID SULFASALAZINE 500 MG ORAL TBEC 843981 SULFASALAZINE Inactive AMOXICILLIN 500 MG CAPS 2 po BID x 10 days AMOXICILLIN 500 MG CAPS 772993 AMOXICILLIN Inactive GLYBURIDE 5 MG TAB Take one by mouth daily GLYBURIDE 5 MG TAB 227123 GLYBURIDE Inactive AZITHROMYCIN 250 MG TABS 2 po qd x 1 day, then 1 po qd x 4 days AZITHROMYCIN 250 MG TABS 8399318 AZITHROMYCIN Inactive PREDNISONE 20 MG TAB 2 tabs daily for 3 days, 1 tab daily for 3 days, 1/2 tab daily for 2 days PREDNISONE 20 MG TAB 857954 PREDNISONE Inactive PREDNISONE 20 MG TAB 2 tabs daily for 5 days, then 1 daily for 5 days, then 0.5 for 4 days PREDNISONE 20 MG TAB 852460 PREDNISONE Inactive AZITHROMYCIN 250 MG TABS 2 po qd x 1 day, then 1 po qd x 4 days AZITHROMYCIN 250 MG TABS 9812559 AZITHROMYCIN Inactive Immunizations Vaccine Administration Date Value [...] Panel - Chemistry sodium, serum 132 mmol/L 006-537 7013/10/26 carbon dioxide, venous blood 22.8 mmol/L 21.0-32.0 potassium, serum 5.4 mmol/L 3.5-5.2 chloride, serum 98 mmol/L 98-107 blood glucose 424 mg/dL 65-110 urea nitrogen, blood 40 mg/dL 7-18 creatinine, serum 2.26 mg/dL 0.55-1.30 alanine aminotransferase (SGPT), serum 29 U/L 12-78 aspartate aminotransferase (SGOT), serum 24 U/L 15-37 calcium, serum 8.6 mg/dL 8.5-10.1 bilirubin, serum, total 0.60 mg/dL 0.00-1.00 sodium, serum 137 mmol/L 602-422 5839/06/06 carbon dioxide, venous blood 24.9 mmol/L 21.0-32.0 [...] % 11.6-14.8 platelet count 210 10^3/MM^3 10*3/mm3 744-420 0117/10/26 leukocyte count, blood 10.3 10^3/MM^3 10*3/mm3 4.6-10.2 [...] Panel - Chemistry sodium, serum 139 mmol/L 467-852 9362/03/17 carbon dioxide, venous blood 29.0 mmol/L 21.0-32.0 [...] Rate - Chemistry sodium, serum 136 mmol/L 661-171 9536/09/18 carbon dioxide, venous blood 24.3 mmol/L 21.0-32.0 [...] HGBA1C - Chemistry sodium, serum 139 mmol/L 471-851 4874/07/09 potassium, serum 5.4 mmol/L 3.5-5.2 chloride, serum [...] 8.5 % 4.3-6.0 sodium, serum 137 mmol/L 706-090 6010/02/12 potassium, serum 5.1 mmol/L 3.5-5.2 chloride, serum 103 mmol/L 98-107 carbon dioxide, venous blood 24.4 mmol/L 21.0-32.0 blood glucose 261 mg/dL 65-110 calcium, serum 9.0 mg/dL 8.5-10.1 urea nitrogen, blood 44 mg/dL 7-18 creatinine, serum 2.37 mg/dL 0.55-1.30 Lab Report: Lipid Panel - Chemistry cholesterol, serum 139 mg/dL 872-112 8043/09/10 triglyceride, serum, fasting 176 mg/dL 30-200 HDL cholesterol, serum 45 mg/dL 32-96 LDL cholesterol, serum 59 mg/dL 0-130 Lab Report: MICROALBUMIN - Chemistry albumin/creatinine ratio, urine 30 - 300 mg/g mg/g{creat} 0-29 Lab Report: MICROALBUMIN - Lab microalbumin, urine 30 0-19 Lab Report: Uric Acid - Chemistry uric acid, serum 6.3 mg/dL 2.6-7.2 Encounters Code Encounter Date Provider Facility CPT-47696 Level 4 Est. Patient 14:32:04 CDT Neto Oshea DO [facility] CPT-41863 Level 3 Est. Patient 08:41:43 CDT Giles Nashtico [facility] CPT-52597 Level 3 Est. Patient 08:40:53 CDT Giles Nashamayal [facility] CPT-51632 Level 3 Est. [facility] 08:36[facility] Level [facility] Est. Patient 09:08:44 CDT Giles Nashtico [facility] CPT-45336 Level 4 Est. Patient 09:17:32 FLEXO PRESS OPERATOR Simon Castillo MD [facility] CPT-04682 Level 3 Est. Patient 11:22:22 FLEXO PRESS OPERATOR Simon Castillo MD [facility] CPT-50655 Level 3 Est. Patient 09:02:14 CDT Simon Castillo MD [facility] CPT-01807 Level 4 Est. Patient 08:47:25 CDT Simon Castillo MD [facility] CPT-06138 Level 4 Est. Patient 10:17:25 CDT Simon Castillo MD [facility] CPT-61876 Level 4 Est. Patient 10:10:09 FLEXO PRESS OPERATOR Simon Castillo MD [facility] CPT-84699 Level 4 Est. Patient 11:48:19 CDT Simon Castillo MD [facility] CPT-30921 Level 4 Est. Patient 08:59:29 CDT Simon Castillo MD [facility] CPT-96276 Level 4 Est. Patient 10:52:51 FLEXO PRESS OPERATOR Simon Castillo MD [facility] CPT-08476 Level 4 Est. Patient 11:50:30 CDT Simon Castillo MD [facility] CPT-14252 Level 4 Est. Patient 09:54:46 CDT Simon Castillo MD [facility] CPT-08307 Level 3 Est. Patient 11:10:14 CDT Simon Castillo MD [facility] CPT-04882 Level 4 Est. Patient 09:44:02 CDT Simon Castillo MD [facility] CPT-53209 Level 3 Est. Patient 09:27:48 CDT Simon Castillo MD [facility] CPT-04757 Level 3 Est. Patient 09:58:06 FLEXO PRESS OPERATOR Simon Castillo MD [facility] CPT-84148 Level 3 Est. Patient 09:51:35 CDT Simon Castillo MD [facility] Procedures Code Procedure Name Date Entry Date Standard Description CPT-08210 Chest 2V Frontal and Lat - XRAY USE ONLY 09:00:14 CDT CPT-11243 Venipuncture Draw Fee 13:33:02 CDT CPT-98268 Bone Density 09:37:49 FLEXO PRESS OPERATOR CPT-10564 Fluzone High Dose 17:20:42 CDT CPT-26648 Prevnar 13 17:20:42 CDT CPT-55367 Administration 2+ single or combination vaccines inc oral 17:20:42 CDT CPT-65525 Administration single or combination vaccine inc oral 17 :20:42 CDT CPT-52276 Hand comp min 3V 09:24:38 CDT CPT-53154 Venipuncture Draw Fee 08:07:29 FLEXO PRESS OPERATOR CPT-40739 Venipuncture Draw Fee 09:02:51 FLEXO PRESS OPERATOR CPT-57921 Venipuncture Draw Fee 12:45:08 FLEXO PRESS OPERATOR CPT-10517 Venipuncture Draw Fee 09:25:31 CDT CPT-G0008 Administration of Influenza Virus Vaccine 14:41:29 CDT CPT-08628 Fluzone High-Dose Intramuscular Suspension 14:41:29 CDT CPT-Cryo Cryotherapy 11:48:20 CDT CPT-30302 EKG Trac and Interp 09:21:58 CDT CPT-38232 Chest 2V Frontal and Lat 09:21:58 CDT CPT-Cryo Cryotherapy 10:54:51 FLEXO PRESS OPERATOR CPT-55983 Administration 2+ single or combination vaccines inc oral 10:42:19 CDT CPT-67311 Administration single or combination vaccine inc oral 10 :42:19 CDT CPT-54696 Pneumovax 10:42:19 CDT CPT-65039 Influenza High Dose age 65+ 10:42:19 CDT CPT-33214 Administration single or combination vaccine inc oral 13 :18:54 CDT CPT-62283 Influenza High Dose age 65+ 13:18:54 CDT CPT-31408 Venipuncture Draw Fee 11:53:16 CDT CPT-04075 LS spine comp w obliq 11:03:13 CDT CPT-Cryo Cryotherapy 08:27:16 FLEXO PRESS OPERATOR CPT-39885 Administration single or combination vaccine inc oral 10 :56:34 CDT CPT-64910 Influenza High Dose age 65+ 10:56:34 CDT
--- OUTSIDE RECORDS SUMMARY | 2018-03-31 16:59 | XMS REPORT | Clinical Summary ---
Author Author Admin, E Organization [employer] Address Unknown Phone Unavailable Allergies, Adverse Reactions, [...] medical examination at a health care facility LUNG CANCER ICD-V16.1 Inactive Simon Castillo MD FH DIABETES ICD-V18.0 Inactive Simon Castillo MD CHEST WALL PAIN, HX OF ICD-V15.89 Inactive Simon Castillo MD SEBORRHEIC KERATOSIS ICD-702.19 Inactive Simon Castillo MD BRONCHITIS, ACUTE ICD-466.0 Inactive Simon Castillo MD SINUSITIS, ACUTE ICD-461.9 Inactive Simon Castillo MD ABDOMINAL PAIN RIGHT LOWER QUADRANT ICD-789.03 Inactive Simon Castillo MD ABDOMINAL TENDERNESS ICD-789.60 Kerry Castillo MD Obesity ICD-278.00 Inactive Simon Castillo MD 2013 Actinic keratosis ICD-702.0 Inactive Simon Castillo MD Chest pain ICD-786.50 Inactive Simon Castillo MD Cough ICD-786.2 Kerry Castillo MD Eczema ICD-692.9 Kerry Castillo MD 02/27 Bronchitis, acute ICD-466.0 Inactive Simon Castillo MD SCIATICA ICD-724.3 Kerry Castillo MD 2012 Hand pain, bilateral ICD-729.5 Kerry Castillo MD Tinea pedis ICD-110.4 Kerry Castillo MD Hand pain, bilateral ICD-729.5 Kerry Castillo MD Steroid use, 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 Kerry Castillo MD BENIGN PROSTATIC HYPERTROPHY, MILD, HX OF ICD-V13.89 Kerry Castillo MD Dyspnea ICD-786.09 Kerry Castillo MD 2016 Peripheral edema ICD-782.3 Inactive Simon Castillo MD 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 Inactive Simon Castillo MD Pharyngitis ICD-462 Inactive Simon Castillo MD Pneumonia, right lower lobe ICD-486 Inactive Simon Castillo MD Medication List Medication Instructions Start Date Stop Date Generic Name NDC Status Provider Patient Instruction PIOGLITAZONE HCL 30 MG ORAL TABS 1 po qd PIOGLITAZONE HCL 23796600161 Active Simon Castillo MD Active GLIMEPIRIDE 4 MG ORAL TABS 1 po BID GLIMEPIRIDE 30983165134 Active Simon Castillo MD Active ASPIRIN EC 81 MG ORAL TBEC 1 po qd ASPIRIN 11322922293 Active Simon Castillo MD Active CLOTRIMAZOLE 1 % EXT CREA Apply to affected area of feet twice daily PRN Rash CLOTRIMAZOLE 25047426813 No Longer Active Simon Castillo MD Active PREDNISONE 5 MG TAB 1 po BID PREDNISONE 02185815444 Active Simon Castillo MD Active FISH OIL 1000 MG CPDR 1 po BID OMEGA-3 FATTY ACIDS 01196797781 Active Simon Castillo MD Active LISINOPRIL 10 MG TABS 1 p qd LISINOPRIL 44234611916 Active Simon Castillo MD Active CLARITIN 10 MG TAB 1 tablet by mouth daily as needed for allergies LORATADINE 85723562150 No Longer Active Simon Castillo MD Active TRIAMCINOLONE ACETONIDE 0.1 % OINT Apply to affected areas TID for up to 2 weeks TRIAMCINOLONE ACETONIDE 05497026379 No Longer Active Simon Castillo MD Active LASIX 20 MG TAB 1 tablet by mouth daily x 2 days FUROSEMIDE 96039734994 No Longer Active Simon Castillo MD Active SULFASALAZINE 500 MG ORAL TBEC 2 tabs BID SULFASALAZINE 42262329212 No Longer Active Neto Oshea DO Active PREDNISONE 20 MG TAB 2 tabs daily for 3 days, 1 tab daily for 3 days, 1/2 tab daily for 2 days PREDNISONE 99615501539 No Longer Active 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 HAND ENGRAVER Active PREDNISONE 20 MG TAB 1 tablet daily for airway inflammation 02/25 PREDNISONE 08533627241 No Longer Active 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 HAND ENGRAVER Active AZITHROMYCIN 250 MG TABS 2 po qd x 1 day, then 1 po qd x 4 days AZITHROMYCIN 69903330126 No Longer Active 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 HAND ENGRAVER Active HYDROCODONE-ACETAMINOPHEN 5-325 MG TABS 1 tab by mouth 8 hours as needed for pain HYDROCODONE-ACETAMINOPHEN 57254630319 Active Simon Castillo MD Active TRAMADOL HCL 50 MG TABS 1 po q6hr PRN Pain TRAMADOL HCL 70507333665 No Longer Active Simon Castillo MD Active PREDNISONE 5 MG TABS 1 po qod PREDNISONE 43399161895 No Longer Active Simon Castillo MD Active SYMBICORT 160-4.5 MCG/ACT AERO 2 puff BID BUDESONIDE- FORMOTEROL FUMARATE 89553355585 No Longer Active Simon Castillo MD Active FLONASE 50 MCG/ACT SUSP 2 puffs in each nostril daily FLUTICASONE PROPIONATE 21186052409 No Longer Active Simon Castillo MD Active PREDNISONE 20 MG TAB 2 tabs daily for 5 days, then 1 daily for 5 days PREDNISONE 38992448876 No Longer Active Simon Castillo MD Active PREDNISONE 20 MG TAB 2 tabs daily for 5 days, then 1 daily for 5 days, then 0.5 for 4 days PREDNISONE 03182933013 No Longer Active Simon Castillo MD Active PREDNISONE 20 MG TAB 2 tabs daily for 3 days, 1 tab daily for 3 days, 1/2 tab daily for 2 days PREDNISONE 96648354750 No Longer Active Simon Castillo MD Active AZITHROMYCIN 250 MG TABS 2 po qd x 1 day, then 1 po qd x 4 days AZITHROMYCIN 31773892193 No Longer Active Simon Castillo MD Active CARVEDILOL 6.25 MG TABS 1 po BID CARVEDILOL 91296402661 Active Simon Castillo MD Active LISINOPRIL-HYDROCHLOROTHIAZIDE 20-12.5 MG TABS 1/2 tab by mouth daily LISINOPRIL-HYDROCHLOROTHIAZIDE 79518425524 No Longer Active Simon Castillo MD Active TRAMADOL HCL 50 MG TABS 1-2 tablets every 6 hours as needed for pain TRAMADOL HCL 52160767917 Active Giles Tatum APRN Active PREDNISONE 5 MG TAB Take one po qod PREDNISONE 82886400729 No Longer Active Simon Castillo MD Active GLYBURIDE 5 MG TAB Take one by mouth daily GLYBURIDE 80838383289 No Longer Active Simon Castillo MD Active LEVAQUIN 750 MG TABS 1 po qod x 5 doses LEVOFLOXACIN 40844644540 No Longer Active Simon Castillo MD Active CETIRIZINE HCL 10 MG TABS 1 po qd as needed for allergies CETIRIZINE HCL 59167110444 No Longer Active Simon Castillo MD Active BILBERRY CAPS 1 tab daily BILBERRY (VACCINIUM MYRTILLUS) CAPS 22129942966 Active Simon Castillo MD Active ATENOLOL 50 MG TABS Take one by mouth daily ATENOLOL 77675969362 No Longer Active Simon Castillo MD Active FLONASE 50 MCG/ACT SUSP 2 puffs in each nostril daily FLUTICASONE PROPIONATE 45663437219 No Longer Active Simon Castillo MD Active GLYBURIDE 5 MG TAB Take one by mouth daily GLYBURIDE 08315522585 No Longer Active Simon Castillo MD Active SYMBICORT 80-4.5 MCG/ACT AERO 2 puffs twice a day BUDESONIDE-FORMOTEROL FUMARATE 98107621776 No Longer Active Simon Castillo MD Active PREDNISONE 20 MG TAB 2 tabs daily for 4 days, 1 tab daily for 4 days, 1/2 tab daily for 4 days PREDNISONE 31774857755 No Longer Active Simon Castillo MD Active AMOXICILLIN 500 MG CAPS 2 po BID x 10 days AMOXICILLIN 25535568292 No Longer Active Simon Castillo MD Active METFORMIN HCL 1000 MG TABS 1 by mounth twice a day METFORMIN HCL 57338792557 No Longer Active Simon Castillo MD Active LUTEIN-ZEAXANTHIN 6-1 MG TABS Take 2 by mouth daily LUTEIN-ZEAXANTHIN 93970302233 Active Simon Castillo MD Active IBUPROFEN 800 MG TABS Take 1 tab every 6 hrs prn IBUPROFEN 99119042590 No Longer Active Simon Castillo MD Active GLYBURIDE 2.5 MG TABS Take one by mouth daily GLYBURIDE 65600526682 No Longer Active Simon Castillo MD Active LANCETS MISC 2 qd LANCETS 06639534788 Active Pamela Conde Active ACACIA CONTOUR TEST STRP Use with testing twice daily GLUCOSE BLOOD 29092260039 Active Siomn Castillo MD Active GLYBURIDE 2.5 MG TABS Take one by mouth daily GLYBURIDE 2.5 MG TABS 930542 GLYBURIDE Inactive PREDNISONE 20 MG TAB 2 tabs daily for 4 days, 1 tab daily for 4 days, 1/2 tab daily for 4 days PREDNISONE 20 MG TAB 192409 PREDNISONE Inactive SYMBICORT 80-4.5 MCG/ACT AERO 2 puffs twice a day SYMBICORT 80-4.5 MCG/ACT AERO BUDESONIDE-FORMOTEROL FUMARATE Inactive FLONASE 50 MCG/ACT SUSP 2 puffs in each nostril daily FLONASE 50 MCG/ACT SUSP 7119978 FLUTICASONE PROPIONATE Inactive ATENOLOL 50 MG TABS Take one by mouth daily ATENOLOL 50 MG TABS 732220 ATENOLOL Inactive CETIRIZINE HCL 10 MG TABS 1 po qd as needed for allergies CETIRIZINE HCL 10 MG TABS 8577289 CETIRIZINE HCL Inactive LEVAQUIN 750 MG TABS 1 po qod x 5 doses LEVAQUIN 750 MG TABS 496041 LEVOFLOXACIN Inactive GLYBURIDE 5 MG TAB Take one by mouth daily GLYBURIDE 5 MG TAB 458245 GLYBURIDE Inactive PREDNISONE 5 MG TAB Take one po qod PREDNISONE 5 MG TAB 837529 PREDNISONE Inactive PREDNISONE 20 MG TAB 2 tabs daily for 5 days, then 1 daily for 5 days PREDNISONE 20 MG TAB 153687 PREDNISONE Inactive FLONASE 50 MCG/ACT SUSP 2 puffs in each nostril daily FLONASE 50 MCG/ACT SUSP 0107203 FLUTICASONE PROPIONATE Inactive SYMBICORT 160-4.5 MCG/ACT AERO 2 puff BID SYMBICORT 160-4.5 MCG/ACT AERO BUDESONIDE-FORMOTEROL FUMARATE Inactive PREDNISONE 5 MG TABS 1 po qod PREDNISONE 5 MG TABS 296860 PREDNISONE Inactive PREDNISONE 20 MG TAB 1 tablet daily for airway inflammation 02/25 PREDNISONE 20 MG TAB 728782 PREDNISONE Inactive SULFASALAZINE 500 MG ORAL TBEC 2 tabs BID SULFASALAZINE 500 MG ORAL TBEC 193800 SULFASALAZINE Inactive LASIX 20 MG TAB 1 tablet by mouth daily x 2 days LASIX 20 MG TAB 396325 FUROSEMIDE Inactive CLARITIN 10 MG TAB 1 tablet by mouth daily as needed for allergies CLARITIN 10 MG TAB 241614 LORATADINE Inactive CLOTRIMAZOLE 1 % EXT CREA Apply to affected area of feet twice daily PRN Rash CLOTRIMAZOLE 1 % EXT CREA 028158 CLOTRIMAZOLE Inactive AMOXICILLIN 500 MG CAPS 2 po BID x 10 days AMOXICILLIN 500 MG CAPS 034150 AMOXICILLIN Inactive GLYBURIDE 5 MG TAB Take one by mouth daily GLYBURIDE 5 MG TAB 365280 GLYBURIDE Inactive AZITHROMYCIN 250 MG TABS 2 po qd x 1 day, then 1 po qd x 4 days AZITHROMYCIN 250 MG TABS 2528564 AZITHROMYCIN Inactive PREDNISONE 20 MG TAB 2 tabs daily for 3 days, 1 tab daily for 3 days, 1/2 tab daily for 2 days PREDNISONE 20 MG TAB 825561 PREDNISONE Inactive PREDNISONE 20 MG TAB 2 tabs daily for 5 days, then 1 daily for 5 days, then 0.5 for 4 days PREDNISONE 20 MG TAB 511597 PREDNISONE Inactive AZITHROMYCIN 250 MG TABS 2 po qd x 1 day, then 1 po qd x 4 days AZITHROMYCIN 250 MG TABS 7391651 AZITHROMYCIN Inactive PREDNISONE 20 MG TAB 2 tabs daily for 3 days, 1 tab daily for 3 days, 1/2 tab daily for 2 days PREDNISONE 20 MG TAB 145415 PREDNISONE Inactive TRIAMCINOLONE ACETONIDE 0.1 % OINT Apply to affected areas TID for up to 2 weeks TRIAMCINOLONE ACETONIDE 0.1 % OINT 9614753 TRIAMCINOLONE ACETONIDE Inactive Immunizations Vaccine Administration Date [...] E&M - 3141-9 217.5 [lb_av] Weight Measured Diagnostic Results Date Name [...] Panel, HGBA1C, Comp. Metabolic Panel - Chemistry sodium, serum 141 mmol/L 009-894 3630/02/07 carbon dioxide, venous blood 26.0 mmol/L 21.0-32.0 [...] % of total hemoglobin 8.3 % 4.3-6.0 LDL cholesterol, serum 39 mg/dL 0-130 HDL cholesterol, serum 70 mg/dL 32-96 triglyceride, serum, fasting 83 mg/dL 30-200 cholesterol, serum 126 mg/dL 130-200 Encounters Code Encounter Date Provider Facility CPT-16366 Level 4 Est. Patient 09:54:08 CDT Simon Castillo MD [facility] CPT-98634 Level 4 Est. Patient 16:11:23 CDT Simon Castillo MD [facility] CPT-04830 Level 4 Est. Patient 09:29:28 TAPER OPERATOR Simon Castillo MD [facility] CPT-91192 Level 3 Est. Patient 09:18:25 CDT Simon Castillo MD [facility] CPT-32535 Level 4 Est. Patient 11:51:23 CDT Simon Castillo MD [facility] CPT-47009 Level 4 Est. Patient 14:32:04 CDT Neto Oshea DO [facility] CPT-06097 Level 3 Est. Patient 08:41:43 CDT Giles Tatum [facility] CPT-11144 Level 3 Est. Patient 08:40:53 CDT Giles Tatum [facility] CPT-62603 Level 3 Est. Patient 08:36:52 CDT Giles Tatum [facility] CPT-07711 Level 3 Est. Patient 09:08:44 CDT Giles Salcidoalejandrina HEMPHILL [facility] CPT-19044 Level 4 Est. Patient 09:17:32 TAPER OPERATOR Simon Castillo MD [facility] CPT-16153 Level 3 Est. Patient 11:22:22 TAPER OPERATOR Simon Castillo MD [facility] CPT-60051 Level 3 Est. Patient 09:02:14 CDT Simon Castillo MD [facility] CPT-82552 Level 4 Est. Patient 08:47:25 CDT Simon Castillo MD [facility] CPT-10537 Level 4 Est. Patient 10:17:25 CDT Simon Castillo MD [facility] CPT-99755 Level 4 Est. Patient 10:10:09 TAPER OPERATOR Simon Castillo MD [facility] CPT-06578 Level 4 Est. Patient 11:48:19 CDT Simon Castillo MD [facility] CPT-62873 Level 4 Est. Patient 08:59:29 CDT Simon Castillo MD [facility] CPT-48320 Level 4 Est. Patient 10:52:51 TAPER OPERATOR Simon Castillo MD [facility] CPT-70104 Level 4 Est. Patient 11:50:30 CDT Simon Castillo MD [facility] CPT-66909 Level 4 Est. Patient 09:54:46 CDT Simon Castillo MD [facility] CPT-75335 Level 3 Est. Patient 11:10:14 CDT Simon Castillo MD [facility] CPT-40420 Level 4 Est. Patient 09:44:02 CDT Simon Castillo MD [facility] CPT-81518 Level 3 Est. Patient 09:27:48 CDT Simon Castillo MD [facility] CPT-23790 Level 3 Est. Patient 09:58:06 TAPER OPERATOR Simon Castillo MD [facility] CPT-23653 Level 3 Est. Patient 09:51:35 CDT Simon Castillo MD [facility] Procedures Code Procedure Name Date Entry Date Standard Description CPT-G0439 Subsequent Annual Wellness Exam 09:41:17 CDT CPT-17533 Lipid - LAB USE ONLY 17:15:33 CDT CPT-35908 HGBA1C - LAB USE ONLY 17:15:33 CDT CPT-67183 CMP - LAB USE ONLY 17:15:33 CDT CPT-43269 Venipuncture Draw Fee 17:15:33 CDT CPT-[facility] Transitional Care Mgmt-High 11:01:28 TAPER OPERATOR CPT-68573 First Vx - Ix admin for Medicare patients 17:33:39 CDT CPT-68829 Fluzone High-Dose Intramuscular Suspension 17:33:39 CDT CPT-G0438 Initial Annual Wellness Exam 08:57:30 CDT CPT-75534 Chest 2V Frontal and Lat - XRAY USE ONLY 09:00:14 CDT CPT-66651 Venipuncture Draw Fee 13:33:02 CDT CPT-87027 Bone Density 09:37:49 TAPER OPERATOR CPT-14602 Fluzone High Dose 17:20:42 CDT CPT-80611 Prevnar 13 17:20:42 CDT CPT-18566 Administration 2+ single or combination vaccines inc oral 17:20:42 CDT CPT-11009 Administration single or combination vaccine inc oral 17 :20:42 CDT CPT-39392 Hand comp min 3V 09:24:38 CDT CPT-16321 Venipuncture Draw Fee 08:07:29 TAPER OPERATOR CPT-12072 Venipuncture Draw Fee 09:02:51 TAPER OPERATOR CPT-50503 Venipuncture Draw Fee 12:45:08 TAPER OPERATOR CPT-69387 Venipuncture Draw Fee 09:25:31 CDT CPT-G0008 Administration of Influenza Virus Vaccine 14:41:29 CDT CPT-98108 Fluzone High-Dose Intramuscular Suspension 14:41:29 CDT CPT-Cryo Cryotherapy 11:48:20 CDT CPT-72136 EKG Trac and Interp 09:21:58 CDT CPT-97428 Chest 2V Frontal and Lat 09:21:58 CDT CPT-Cryo Cryotherapy 10:54:51 TAPER OPERATOR CPT-95808 Administration 2+ single or combination vaccines inc oral 10:42:19 CDT CPT-32554 Administration single or combination vaccine inc oral 10 :42:19 CDT CPT-94345 Pneumovax 10:42:19 CDT CPT-02669 Influenza High Dose age 65+ 10:42:19 CDT CPT-12950 Administration single or combination vaccine inc oral 13 :18:54 CDT CPT-72617 Influenza High Dose age 65+ 13:18:54 CDT CPT-68226 Venipuncture Draw Fee 11:53:16 CDT CPT-23731 LS spine comp w obliq 11:03:13 CDT CPT-Cryo Cryotherapy 08:27:16 TAPER OPERATOR CPT-20341 Administration single or combination vaccine inc oral 10 :56:34 CDT CPT-14452 Influenza High Dose age 65+ 10:56:34 CDT
--- OUTSIDE RECORDS SUMMARY | 2018-03-31 17:00 | XMS REPORT | Clinical Summary ---
Author Author Admin, RAFFI Organization [facility] Address Unknown Phone Unavailable Allergies, Adverse Reactions, Alerts Allergy Name Reaction Description Start Date Severity Status Provider No Known Allergies BALDEMAR Jenkins Conditions or Problems Problem Name Problem Code [...] obstruction and other lower urinary tract (LUTS) FH DIABETES ICD-V18.0 Inactive Simon Castillo MD [...] MD Cough ICD-786.2 Inactive Simon Castillo MD Medication List Medication Instructions Start Date Stop Date Generic Name NDC Status Provider Patient Instruction LISINOPRIL 10 MG TABS 1 tablet by mouth daily LISINOPRIL 12095423837 Active Simon Castillo MD Active GLIMEPIRIDE 1 MG TABS 1 po q a.m. GLIMEPIRIDE 93380334137 Active Simon Castillo MD Active CARVEDILOL 6.25 MG TABS 1 po BID CARVEDILOL 65118533793 Active Simon Castillo MD Active LISINOPRIL-HYDROCHLOROTHIAZIDE 20-12.5 MG TABS 1/2 tab by mouth daily LISINOPRIL-HYDROCHLOROTHIAZIDE 40836470754 No Longer Active Simon Castillo MD Active PREDNISONE 5 MG TABS 1 po qod PREDNISONE 38610209729 Active Simon Castillo MD Active TRAMADOL HCL 50 MG TABS 1-2 tablets every 6 hours as needed for pain TRAMADOL HCL 11271743611 Active Simon Csatillo MD Active PREDNISONE 5 MG TAB Take one po qod PREDNISONE 62544763731 No Longer Active Simon Castillo MD Active GLYBURIDE 5 MG TAB Take one by mouth daily GLYBURIDE 69157060762 No Longer Active Simon Castillo MD Active LEVAQUIN 750 MG TABS 1 po qod x 5 doses LEVOFLOXACIN 43510443541 No Longer Active Simon Castillo MD Active CETIRIZINE HCL 10 MG TABS 1 po qd as needed for allergies CETIRIZINE HCL 78748396505 No Longer Active Simon Castillo MD Active FISH OIL 1000 MG CPDR 1 pill by mouth twice daily for cholesterol OMEGA -3 FATTY ACIDS 88309558560 Active Simon Castillo MD Active BILBERRY CAPS 1 tab daily BILBERRY (VACCINIUM MYRTILLUS) CAPS 54049335750 Active Simon Castillo MD Active ATENOLOL 50 MG TABS Take one by mouth daily ATENOLOL 54595117943 No Longer Active Simon Castillo MD Active FLONASE 50 MCG/ACT SUSP 2 puffs in each nostril daily FLUTICASONE PROPIONATE 11526772853 No Longer Active Simon Castillo MD Active GLYBURIDE 5 MG TAB Take one by mouth daily GLYBURIDE 21908248720 No Longer Active Simon Castillo MD Active SYMBICORT 80-4.5 MCG/ACT AERO 2 puffs twice a day BUDESONIDE-FORMOTEROL FUMARATE 65390455555 No Longer Active Simon Castillo MD Active PREDNISONE 20 MG TAB 2 tabs daily for 4 days, 1 tab daily for 4 days, 1/2 tab daily for 4 days PREDNISONE 07296438707 No Longer Active Simon Castillo MD Active AMOXICILLIN 500 MG CAPS 2 po BID x 10 days AMOXICILLIN 99071297598 No Longer Active Simon Castillo MD Active METFORMIN HCL 1000 MG TABS 1 by [facility] twice a day METFORMIN HCL 49266607764 No Longer Active Simon Castillo MD Active LUTEIN-ZEAXANTHIN 6-1 MG TABS Take 2 by mouth daily LUTEIN-ZEAXANTHIN 91213848962 Active Simon Castillo MD Active IBUPROFEN 800 MG TABS Take 1 tab every 6 hrs prn IBUPROFEN 21600502045 No Longer Active Simon Castillo MD Active GLYBURIDE 2.5 MG TABS Take one by mouth daily GLYBURIDE 73039674918 No Longer Active Simon Castillo MD Active LANCETS MISC 2 qd [facility] 55391663140 Active Pamela Conde Active ACACIA CONTOUR TEST STRP Use with testing twice daily GLUCOSE BLOOD 80039295777 Active Pamela Conde Active ACACIA ASPIRIN 325 MG TABS Take one by mouth daily ASPIRIN 86013784578 Active Pamela Conde Active GLYBURIDE 2.5 MG TABS Take one by mouth daily GLYBURIDE 2.5 MG TABS 297717 GLYBURIDE Inactive PREDNISONE 20 MG TAB 2 tabs daily for 4 days, 1 tab daily for 4 days, 1/2 tab daily for 4 days PREDNISONE 20 MG TAB 825813 PREDNISONE Inactive SYMBICORT 80-4.5 MCG/ACT AERO 2 puffs twice a day SYMBICORT 80-4.5 MCG/ACT AERO BUDESONIDE-FORMOTEROL FUMARATE Inactive FLONASE 50 MCG/ACT SUSP 2 puffs in each nostril daily FLONASE 50 MCG/ACT SUSP 296300 FLUTICASONE PROPIONATE Inactive ATENOLOL 50 MG TABS Take one by mouth daily ATENOLOL 50 MG TABS 362554 ATENOLOL Inactive CETIRIZINE HCL 10 MG TABS 1 po qd as needed for allergies CETIRIZINE HCL 10 MG TABS 5139441 CETIRIZINE HCL Inactive LEVAQUIN 750 MG TABS 1 po qod x 5 doses LEVAQUIN 750 MG TABS 260474 LEVOFLOXACIN Inactive GLYBURIDE 5 MG TAB Take one by mouth daily GLYBURIDE 5 MG TAB 869290 GLYBURIDE Inactive PREDNISONE 5 MG TAB Take one po qod PREDNISONE 5 MG TAB 759927 PREDNISONE Inactive AMOXICILLIN 500 MG CAPS 2 po BID x 10 days AMOXICILLIN 500 MG CAPS 391135 AMOXICILLIN Inactive GLYBURIDE 5 MG TAB Take one by mouth daily GLYBURIDE 5 MG TAB 940106 GLYBURIDE Inactive Immunizations Vaccine Administration Date Value Standard Description pneumococcal immunization administered Pneumovax 23 [CVX33] pneumococcal polysaccharide vaccine, 23 valent Vital Signs Date Name Value Unit Range Description blood pressure, diastolic, second observation 68 mm[Hg] [...] E&M - 3141-9 203 [lb_av] Weight Measured blood pressure, diastolic - 8462-4 73 mm[Hg] BP castillo blood pressure, systolic - 8480-6 129 mm[Hg] BP sys pulse rate E&M - 8867-4 92 /min Heart rate temperature E&M 96.9 [degF] Body temperature weight E&M - 3141-9 203 [lb_av] Weight Measured Diagnostic Results Date Name Value Unit Range Description Lab Report: Basic Metabolic Panel - Chemistry sodium, serum 137 mmol/L 786-868 6507/06/26 potassium, serum 5.7 mmol/L 3.5-5.2 chloride, serum 104 mmol/L 98-107 carbon dioxide, venous blood 21.2 mmol/L 21.0-32.0 blood glucose 129 mg/dL 65-110 calcium, serum 9.0 mg/dL 8.5-10.1 urea nitrogen, blood 67 mg/dL 7-18 creatinine, serum 3.30 mg/dL 0.60-1.30 sodium, serum 140 mmol/L 444-052 1414/07/10 potassium, serum 5.3 mmol/L 3.5-5.2 chloride, serum 105 mmol/L 98-107 carbon dioxide, venous blood 25.5 mmol/L 21.0-32.0 blood glucose 119 mg/dL 65-110 calcium, serum 8.9 mg/dL 8.5-10.1 urea nitrogen, blood 44 mg/dL 7-18 creatinine, serum 2.50 mg/dL 0.60-1.30 Lab Report: CBC W/DIFF, Comp. Metabolic Panel - Chemistry sodium, serum 137 mmol/L 646-409 1364/06/18 potassium, serum 5.3 mmol/L 3.5-5.2 chloride, serum 103 mmol/L 98-107 carbon dioxide, venous blood 21.7 mmol/L 21.0-32.0 blood glucose 176 mg/dL 65-110 urea nitrogen, blood 48 mg/dL 7-18 creatinine, serum 2.90 mg/dL 0.60-1.30 alanine aminotransferase (SGPT), serum 24 U/L 12-78 aspartate aminotransferase (SGOT), serum 18 U/L 15-37 alkaline phosphatase, serum 13 U/L 50-136 calcium, serum 9.3 mg/dL 8.5-10.1 bilirubin, serum, total 0.60 mg/dL 0.00-1.00 Lab Report: CBC W/DIFF, Comp. Metabolic Panel - Hematology leukocyte count, blood 10.5 10^3/MM^3 10*3/mm3 4.6-10.2 neutrophils as percent of blood leukocytes 62.1 % 42.2-75.2 monocytes as percent of blood leukocytes 7.4 % 1.7-9.3 lymphocytes as percent of blood leukocytes 24.0 % 20.5-51.1 erythrocyte (RBC) count 4.37 10^6/MM^3 10*6/mm3 4.69-6.13 hemoglobin, blood 13.0 g/dL 13.5-17.5 hematocrit, blood 39.9 % 41.0-53.0 mean corpuscular volume, RBC 91 fL 80-97 mean corpuscular hemoglobin, RBC 29.8 pg 27.0-31.2 mean corpuscular hemoglobin concentration, RBC 32.6 G/DL % 31.8- 35.4 red blood cell distribution width 13.8 % 11.6-14.8 platelet count 236 10^3/MM^3 10*3/mm3 142-424 Lab Report: CBC, Renal Panel - Chemistry sodium, serum 137 mmol/L 868-170 0444/10/14 potassium, serum 5.6 mmol/L 3.5-5.2 chloride, serum 103 mmol/L 98-107 carbon dioxide, venous blood 24.9 mmol/L 21.0-32.0 blood glucose 200 mg/dL 65-110 urea nitrogen, blood 43 mg/dL 7-18 creatinine, serum 2.60 mg/dL 0.60-1.30 calcium, serum 9.1 mg/dL 8.5-10.1 sodium, serum 139 mmol/L 160-453 6207/11/13 potassium, serum 5.8 mmol/L 3.5-5.2 chloride, serum 105 mmol/L 98-107 carbon dioxide, venous blood 22.2 mmol/L 21.0-32.0 blood glucose 156 mg/dL 65-110 urea nitrogen, blood 49 mg/dL 7-18 creatinine, serum 2.30 mg/dL 0.60-1.30 calcium, serum 9.2 mg/dL 8.5-10.1 sodium, serum 140 mmol/L 467-819 4016/12/12 potassium, serum 5.5 mmol/L 3.5-5.2 chloride, serum [...] % 11.6-14.8 platelet count 217 10^3/MM^3 10*3/mm3 915-554 9414/10/14 leukocyte count, blood 9.2 10^3/MM^3 10*3/mm3 4.6-10.2 erythrocyte (RBC) count 4.67 10^6/MM^3 10*6/mm3 4.69-6.13 hemoglobin, blood 13.9 g/dL 13.5-17.5 hematocrit, blood 42.4 % 41.0-53.0 mean corpuscular volume, RBC 91 fL 80-97 mean corpuscular hemoglobin, RBC 29.7 pg 27.0-31.2 mean corpuscular hemoglobin concentration, RBC 32.8 G/DL % 31.8- 35.4 red blood cell distribution width 14.7 % 11.6-14.8 platelet count 214 10^3/MM^3 10*3/mm3 138-499 7037/11/13 leukocyte count, blood 9.7 10^3/MM^3 10*3/mm3 4.6-10.2 [...] 6.9 % 4.3-6.0 sodium, serum 137 mmol/L 481-965 0674/08/21 potassium, serum 5.3 mmol/L 3.5-5.2 chloride, serum 104 mmol/L 98-107 carbon dioxide, venous blood 20.4 mmol/L 21.0-32.0 blood glucose 173 mg/dL 65-110 calcium, serum 8.7 mg/dL 8.5-10.1 urea nitrogen, blood 46 mg/dL 7-18 creatinine, serum 2.60 mg/dL 0.60-1.30 Lab Report: Prostatic Specific Ag - Chemistry prostate specific antigen 1.52 ng/mL 0.00-4.00 Lab Report: Renal Panel - Chemistry sodium, serum 140 mmol/L 897-775 2979/11/17 potassium, serum 5.0 mmol/L 3.5-5.2 chloride, serum 104 mmol/L 98-107 carbon dioxide, venous blood 24.8 mmol/L 21.0-32.0 blood glucose 146 mg/dL 65-110 urea nitrogen, blood 46 mg/dL 7-18 creatinine, serum 2.60 mg/dL 0.60-1.30 calcium, serum 9.2 mg/dL 8.5-10.1 sodium, serum 139 mmol/L 532-557 3402/10/21 potassium, serum 4.7 mmol/L 3.5-5.2 chloride, serum [...] mg/dL Encounters Code Encounter Date Provider Facility CPT-06621 Level 4 Est. Patient 10:17:25 CDT Simon Castillo MD [facility] CPT-62492 Level 4 Est. Patient 10:10:09 [employer] Simon Castillo MD [facility] CPT-52878 Level 4 Est. Patient 11:48:19 CDT Simon Castillo MD [facility] CPT-14391 Level 4 Est. Patient 08:59:29 CDT Simon Castillo MD [facility] CPT-15308 Level 4 Est. Patient 10:52:51 [employer] Simon Castillo MD [facility] CPT-84357 Level 4 Est. Patient 11:50:30 CDT Simon Castillo MD [facility] CPT-46325 Level 4 Est. Patient 09:54:46 CDT Simon Castillo MD [facility] CPT-85611 Level 3 Est. Patient 11:10:14 CDT Simon Castillo MD [facility] CPT-18630 Level 4 Est. Patient 09:44:02 CDT Simon Castillo MD [facility] CPT-55677 Level 3 Est. Patient 09:27:48 CDT Simon Castillo MD [facility] CPT-16281 Level 3 Est. Patient 09:58:06 [employer] Simon Castillo MD [facility] CPT-88461 Level 3 Est. Patient 09:51:35 CDT Simon Castillo MD [facility] Procedures Code Procedure Name Date Entry Date Standard Description CPT-29438 Venipuncture Draw Fee 08:07:29 [employer] CPT-47246 Venipuncture Draw Fee 09:02:51 [employer] CPT-24537 Venipuncture Draw Fee 12:45:08 [employer] CPT-24202 Venipuncture Draw Fee 09:25:31 CDT CPT-G0008 Administration of Influenza Virus Vaccine 14:41:29 CDT CPT-91815 Fluzone High-Dose Intramuscular Suspension 14:41:29 CDT CPT-Cryo Cryotherapy 11:48:20 CDT CPT-40524 EKG Trac and Interp 09:21:58 CDT CPT-67243 Chest 2V Frontal and Lat 09:21:58 CDT CPT-Cryo Cryotherapy 10:54:51 [employer] CPT-03176 Administration 2+ single or combination vaccines inc oral 10:42:19 CDT CPT-89871 Administration single or combination vaccine inc oral 10 :42:19 CDT CPT-17918 Pneumovax 10:42:19 CDT CPT-54028 Influenza High Dose age 65+ 10:42:19 CDT CPT-91401 Administration single or combination vaccine inc oral 13 :18:54 CDT CPT-76618 Influenza High Dose age 65+ 13:18:54 CDT CPT-60296 Venipuncture Draw Fee 11:53:16 CDT CPT-70475 LS spine comp w obliq 11:03:13 CDT CPT-Cryo Cryotherapy 08:27:16 [employer] CPT-21837 Administration single or combination vaccine inc oral 10 :56:34 CDT CPT-93370 Influenza High Dose age 65+ 10:56:34 CDT
--- OUTSIDE RECORDS SUMMARY | 2018-03-31 17:01 | XMS REPORT | Clinical Summary ---
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 Kerry Castillo MD Hand pain, bilateral [...] ORAL TABS 1 po qd PIOGLITAZONE HCL [id number] Lin Castillo MD Active GLIMEPIRIDE 4 MG ORAL TABS 1 po BID GLIMEPIRIDE 60862781901 Active Simon Castillo MD Active ASPIRIN EC 81 MG ORAL TBEC 1 po qd ASPIRIN 29182133375 Active Simon Castillo MD Active CLOTRIMAZOLE 1 % EXT CREA Apply to affected area of feet twice daily PRN Rash CLOTRIMAZOLE 79156861574 No Longer Active Simon Castillo MD Active PREDNISONE 5 MG TAB 1 po BID PREDNISONE 55138556000 Active Simon Castillo MD Active FISH OIL 1000 MG CPDR 1 po BID OMEGA-3 FATTY ACIDS 81805170287 Active Simon Castillo MD Active LISINOPRIL 10 MG TABS 1 p qd LISINOPRIL 43447674996 Active Simon Castillo MD Active CLARITIN 10 MG TAB 1 tablet by mouth daily as needed for allergies LORATADINE 83084359828 No Longer Active Simon Castillo MD Active TRIAMCINOLONE ACETONIDE 0.1 % OINT Apply to affected areas TID for up to 2 weeks TRIAMCINOLONE ACETONIDE 40462170942 No Longer Active Simon Castillo MD Active LASIX 20 MG TAB 1 tablet by mouth daily x 2 days FUROSEMIDE 15375015725 No Longer Active Simon Castillo MD Active SULFASALAZINE 500 MG ORAL TBEC 2 tabs BID SULFASALAZINE 58678131408 No Longer Active Neto Oshea DO Active PREDNISONE 20 MG TAB 2 tabs daily for 3 days, 1 tab daily for 3 days, 1/2 tab daily for 2 days PREDNISONE 46183315097 No Longer Active Jilltriston Tatum APRN Active PREDNISONE 20 MG TAB 1 tablet daily for airway inflammation 02/25 PREDNISONE 44582461826 No Longer Active 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 BEAD BUILDER Active AZITHROMYCIN 250 MG TABS 2 po qd x 1 day, then 1 po qd x 4 days AZITHROMYCIN 59455243527 No Longer Active Giles Tatum APRN Active HYDROCODONE-ACETAMINOPHEN 5-325 MG TABS 1 tab by mouth 8 hours as needed for pain HYDROCODONE-ACETAMINOPHEN 31224593573 Active Simon Castillo MD Active TRAMADOL HCL 50 MG TABS 1 po q6hr PRN Pain TRAMADOL HCL 91277959867 No Longer Active Simon Castillo MD Active PREDNISONE 5 MG TABS 1 po qod PREDNISONE 86522857505 No Longer Active Simon Castillo MD Active SYMBICORT 160-4.5 MCG/ACT AERO 2 puff BID BUDESONIDE- FORMOTEROL FUMARATE 16081643387 No Longer Active Simon Castillo MD Active FLONASE 50 MCG/ACT SUSP 2 puffs in each nostril daily FLUTICASONE PROPIONATE 80498321470 No Longer Active Simon Castillo MD Active PREDNISONE 20 MG TAB 2 tabs daily for 5 days, then 1 daily for 5 days PREDNISONE 63512503686 No Longer Active Simon Castillo MD Active PREDNISONE 20 MG TAB 2 tabs daily for 5 days, then 1 daily for 5 days, then 0.5 for 4 days PREDNISONE 91359871677 No Longer Active Simon Castillo MD Active PREDNISONE 20 MG TAB 2 tabs daily for 3 days, 1 tab daily for 3 days, 1/2 tab daily for 2 days PREDNISONE 31075537859 No Longer Active Simon Castillo MD Active AZITHROMYCIN 250 MG TABS 2 po qd x 1 day, then 1 po qd x 4 days AZITHROMYCIN 42248569305 No Longer Active Simon Castillo MD Active CARVEDILOL 6.25 MG TABS 1 po BID CARVEDILOL 61036177063 Active Simon Castillo MD Active LISINOPRIL-HYDROCHLOROTHIAZIDE 20-12.5 MG TABS 1/2 tab by mouth daily LISINOPRIL-HYDROCHLOROTHIAZIDE 41908365005 No Longer Active Simon Castillo MD Active TRAMADOL HCL 50 MG TABS 1-2 tablets every 6 hours as needed for pain TRAMADOL HCL 46643556320 Active Giles Tatum APRN Active PREDNISONE 5 MG TAB Take one po qod PREDNISONE 61547422938 No Longer Active Simon Castillo MD Active GLYBURIDE 5 MG TAB Take one by mouth daily GLYBURIDE 73773851008 No Longer Active Simon Castillo MD Active LEVAQUIN 750 MG TABS 1 po qod x 5 doses LEVOFLOXACIN 67745062528 No Longer Active Simon Castillo MD Active CETIRIZINE HCL 10 MG TABS 1 po qd as needed for allergies CETIRIZINE HCL 84635371835 No Longer Active Simon Castillo MD Active BILBERRY CAPS 1 tab daily BILBERRY (VACCINIUM MYRTILLUS) CAPS 11509338040 Active Simon Castillo MD Active ATENOLOL 50 MG TABS Take one by mouth daily ATENOLOL 42583103556 No Longer Active Simon Castillo MD Active FLONASE 50 MCG/ACT SUSP 2 puffs in each nostril daily FLUTICASONE PROPIONATE 83923186222 No Longer Active Simon Castillo MD Active GLYBURIDE 5 MG TAB Take one by mouth daily GLYBURIDE 43014220320 No Longer Active Simon Castillo MD Active SYMBICORT 80-4.5 MCG/ACT AERO 2 puffs twice a day BUDESONIDE-FORMOTEROL FUMARATE 63479222823 No Longer Active Simon Castillo MD Active PREDNISONE 20 MG TAB 2 tabs daily for 4 days, 1 tab daily for 4 days, 1/2 tab daily for 4 days PREDNISONE 25053907887 No Longer Active Simon Castillo MD Active AMOXICILLIN 500 MG CAPS 2 po BID x 10 days AMOXICILLIN 29297608121 No Longer Active Simon Castillo MD Active METFORMIN HCL 1000 MG TABS [facility] twice a day METFORMIN HCL 60359326595 No Longer Active Simon Castillo MD Active LUTEIN-ZEAXANTHIN 6-1 MG TABS Take 2 by mouth daily LUTEIN-ZEAXANTHIN 28192420792 Active Simon Castillo MD Active IBUPROFEN 800 MG TABS Take 1 tab every 6 hrs prn IBUPROFEN 31290359274 No Longer Active Simon Castillo MD Active GLYBURIDE 2.5 MG TABS Take one by mouth daily GLYBURIDE 11770190735 No Longer Active Simon Castillo MD Active LANCETS MISC 2 qd LANCETS 45803251759 Active Pamela Conde Active ACACIA CONTOUR TEST STRP Use with testing twice daily GLUCOSE BLOOD 68173559398 Active Simon Castillo MD Active GLYBURIDE 2.5 MG TABS Take one by mouth daily GLYBURIDE 2.5 MG TABS 922224 GLYBURIDE Inactive PREDNISONE 20 MG TAB 2 tabs daily for 4 days, 1 tab daily for 4 days, 1/2 tab daily for 4 days PREDNISONE 20 MG TAB 190553 PREDNISONE Inactive SYMBICORT 80-4.5 MCG/ACT AERO 2 puffs twice a day SYMBICORT 80-4.5 MCG/ACT AERO BUDESONIDE-FORMOTEROL FUMARATE Inactive FLONASE 50 MCG/ACT SUSP 2 puffs in each nostril daily FLONASE 50 MCG/ACT SUSP 7159764 FLUTICASONE PROPIONATE Inactive ATENOLOL 50 MG TABS Take one by mouth daily ATENOLOL 50 MG TABS 989038 ATENOLOL Inactive CETIRIZINE HCL 10 MG TABS 1 po qd as needed for allergies CETIRIZINE HCL 10 MG TABS 1273452 CETIRIZINE HCL Inactive LEVAQUIN 750 MG TABS 1 po qod x 5 doses LEVAQUIN 750 MG TABS 711226 LEVOFLOXACIN Inactive GLYBURIDE 5 MG TAB Take one by mouth daily GLYBURIDE 5 MG TAB 811693 GLYBURIDE Inactive PREDNISONE 5 MG TAB Take one po qod PREDNISONE 5 MG TAB 141322 PREDNISONE Inactive PREDNISONE 20 MG TAB 2 tabs daily for 5 days, then 1 daily for 5 days PREDNISONE 20 MG TAB 552687 PREDNISONE Inactive FLONASE 50 MCG/ACT SUSP 2 puffs in each nostril daily FLONASE 50 MCG/ACT SUSP 9114246 FLUTICASONE PROPIONATE Inactive SYMBICORT 160-4.5 MCG/ACT AERO 2 puff BID SYMBICORT 160-4.5 MCG/ACT AERO BUDESONIDE-FORMOTEROL FUMARATE Inactive PREDNISONE 5 MG TABS 1 po qod PREDNISONE 5 MG TABS 732742 PREDNISONE Inactive PREDNISONE 20 MG TAB 1 tablet daily for airway inflammation 02/25 PREDNISONE 20 MG TAB 893111 PREDNISONE Inactive SULFASALAZINE 500 MG ORAL TBEC 2 tabs BID SULFASALAZINE 500 MG ORAL TBEC 607825 SULFASALAZINE Inactive LASIX 20 MG TAB 1 tablet by mouth daily x 2 days LASIX 20 MG TAB 038434 FUROSEMIDE Inactive CLARITIN 10 MG TAB 1 tablet by mouth daily as needed for allergies CLARITIN 10 MG TAB 957334 LORATADINE Inactive CLOTRIMAZOLE 1 % EXT CREA Apply to affected area of feet twice daily PRN Rash CLOTRIMAZOLE 1 % EXT CREA 475463 CLOTRIMAZOLE Inactive AMOXICILLIN 500 MG CAPS 2 po BID x 10 days AMOXICILLIN 500 MG CAPS 352460 AMOXICILLIN Inactive GLYBURIDE 5 MG TAB Take one by mouth daily GLYBURIDE 5 MG TAB 010148 GLYBURIDE Inactive AZITHROMYCIN 250 MG TABS 2 po qd x 1 day, then 1 po qd x 4 days AZITHROMYCIN 250 MG TABS 8427088 AZITHROMYCIN Inactive PREDNISONE 20 MG TAB 2 tabs daily for 3 days, 1 tab daily for 3 days, 1/2 tab daily for 2 days PREDNISONE 20 MG TAB 531653 PREDNISONE Inactive PREDNISONE 20 MG TAB 2 tabs daily for 5 days, then 1 daily for 5 days, then 0.5 for 4 days PREDNISONE 20 MG TAB 387544 PREDNISONE Inactive AZITHROMYCIN 250 MG TABS 2 po qd x 1 day, then 1 po qd x 4 days AZITHROMYCIN 250 MG TABS 1391490 AZITHROMYCIN Inactive PREDNISONE 20 MG TAB 2 tabs daily for 3 days, 1 tab daily for 3 days, 1/2 tab daily for 2 days PREDNISONE 20 MG TAB 654629 PREDNISONE Inactive TRIAMCINOLONE ACETONIDE 0.1 % OINT Apply to affected areas TID for up to 2 weeks TRIAMCINOLONE ACETONIDE 0.1 % OINT 2453205 TRIAMCINOLONE ACETONIDE Inactive Immunizations Vaccine Administration Date [...] Panel - Chemistry sodium, serum 137 mmol/L 586-722 3148/06/06 carbon dioxide, venous blood 24.9 mmol/L 21.0-32.0 [...] Panel - Chemistry cholesterol, serum 126 mg/dL 890-984 3816/02/07 triglyceride, serum, fasting 83 mg/dL 30-200 HDL cholesterol, serum 70 mg/dL 32-96 LDL cholesterol, serum 39 mg/dL 0-130 hemoglobin A1C, blood, as % of total hemoglobin 8.3 % 4.3-6.0 sodium, serum 141 mmol/L 379-792 8852/02/07 carbon dioxide, venous blood 26.0 mmol/L 21.0-32.0 [...] 2.6-7.2 Encounters Code Encounter Date Provider Facility CPT-02228 Level 4 Est. Patient 16:11:23 CDT Simon Castillo MD [facility] CPT-46173 Level 4 Est. Patient 09:29:28 PHARMACIST TECHNICIAN Simon Castillo MD [facility] CPT-75078 Level 3 Est. Patient 09:18:25 CDT Simon Castillo MD [facility] CPT-14846 Level 4 Est. Patient 11:51:23 CDT Simon Castillo MD [facility] CPT-16845 Level 4 Est. Patient 14:32:04 CDT Neto Oshea DO [facility] CPT-38492 Level 3 Est. Patient 08:41:[address] [facility] [place] CPT-46880 Level 3 Est. Patient 08:40:[address] [facility] [place] CPT-25879 Level 3 Est. Patient 08:36:[address] [facility] [place] CPT-60361 Level 3 Est. Patient 09:08:[address] [facility] [place] CPT-97849 Level 4 Est. Patient 09:17:32 PHARMACIST TECHNICIAN Simon Castillo MD [facility] CPT-24400 Level 3 Est. Patient 11:22:22 PHARMACIST TECHNICIAN Simon Castillo MD [facility] CPT-43503 Level 3 Est. Patient 09:02:14 CDT Simon Castillo MD [facility] CPT-27640 Level 4 Est. Patient 08:47:25 CDT Simon Castillo MD [facility] CPT-52426 Level 4 Est. Patient 10:17:25 CDT Simon Castillo MD [facility] CPT-12679 Level 4 Est. Patient 10:10:09 PHARMACIST TECHNICIAN Simon Castillo MD [facility] CPT-31160 Level 4 Est. Patient 11:48:19 CDT Simon Castillo MD [facility] CPT-38617 Level 4 Est. Patient 08:59:29 CDT Simon Castillo MD [facility] CPT-36263 Level 4 Est. Patient 10:52:51 PHARMACIST TECHNICIAN Simon Castillo MD [facility] CPT-78067 Level 4 Est. Patient 11:50:30 CDT Simon Castillo MD [facility] CPT-01876 Level 4 Est. Patient 09:54:46 CDT Simon Castillo MD [facility] CPT-87938 Level 3 Est. Patient 11:10:14 CDT Simon Castillo MD [facility] CPT-57398 Level 4 Est. Patient 09:44:02 CDT Simon Castillo MD [facility] CPT-09232 Level 3 Est. Patient 09:27:48 CDT Simon Castillo MD [facility] CPT-87101 Level 3 Est. Patient 09:58:06 PHARMACIST TECHNICIAN Simon Castillo MD [facility] CPT-51179 Level 3 Est. Patient 09:51:35 CDT Simon Castillo MD [facility] Procedures Code Procedure Name Date Entry Date Standard Description CPT-42682 Lipid - LAB USE ONLY 17:15:33 CDT CPT-64270 HGBA1C - LAB USE ONLY 17:15:33 CDT CPT-59379 CMP - LAB USE ONLY 17:15:33 CDT CPT-57710 Venipuncture Draw Fee 17:15:33 CDT [facility]PT-[facility] Transitional Care Mgmt-High 11:01:28 PHARMACIST TECHNICIAN CPT-80418 First Vx - Ix admin for Medicare patients 17:33:39 CDT CPT-97497 Fluzone High-Dose Intramuscular Suspension 17:33:39 CDT CPT-G0438 Initial Annual Wellness Exam 08:57:30 CDT CPT-64582 Chest 2V Frontal and Lat - XRAY USE ONLY 09:00:14 CDT CPT-88727 Venipuncture Draw Fee 13:33:02 CDT CPT-76741 Bone Density 09:37:49 PHARMACIST TECHNICIAN CPT-19038 Fluzone High Dose 17:20:42 CDT CPT-07867 Prevnar 13 17:20:42 CDT CPT-14126 Administration 2+ single or combination vaccines inc oral 17:20:42 CDT CPT-94714 Administration single or combination vaccine inc oral 17 :20:42 CDT CPT-41420 Hand comp min 3V 09:24:38 CDT CPT-69297 Venipuncture Draw Fee 08:07:29 PHARMACIST TECHNICIAN CPT-33073 Venipuncture Draw Fee 09:02:51 PHARMACIST TECHNICIAN CPT-66895 Venipuncture Draw Fee 12:45:08 PHARMACIST TECHNICIAN CPT-67422 Venipuncture Draw Fee 09:25:31 CDT CPT-G0008 Administration of Influenza Virus Vaccine 14:41:29 CDT CPT-56874 Fluzone High-Dose Intramuscular Suspension 14:41:29 CDT CPT-[facility] 11:48:20 CDT CPT-55588 EKG Trac and Interp 09:21:58 CDT CPT-42362 Chest 2V Frontal and Lat 09:21:58 CDT CPT-[facility] 10:54:51 PHARMACIST TECHNICIAN CPT-16402 Administration 2+ single or combination vaccines inc oral 10:42:19 CDT CPT-29551 Administration single or combination vaccine inc oral 10 :42:19 CDT CPT-79349 Pneumovax 10:42:19 CDT CPT-65548 Influenza High Dose age 65+ 10:42:19 CDT CPT-67781 Administration single or combination vaccine inc oral 13 :18:54 CDT CPT-52082 Influenza High Dose age 65+ 13:18:54 CDT CPT-45978 Venipuncture Draw Fee 11:53:16 CDT CPT-93754 LS spine comp w obliq 11:03:13 CDT CPT-[facility] 08:27:16 PHARMACIST TECHNICIAN CPT-90655 Administration single or combination vaccine inc oral 10 :56:34 CDT CPT-58339 Influenza High Dose age 65+ 10:56:34 CDT
--- OUTSIDE RECORDS SUMMARY | 2018-03-31 17:02 | XMS REPORT | Clinical Summary ---
Author Author Admin, E Organization [employer] Address Unknown Phone Unavailable Allergies, Adverse Reactions, Alerts Allergy Name Reaction Description Start Date Severity Status Provider No Known Allergies Dolly MCDERMOTT Conditions or Problems Problem Name Problem Code [...] abrasion, face, infected 910.1 Active Giles Tatum [employer] Abrasion or friction burn of face, neck, and scalp except eye, infected Other injury of unspecified body region, initial encounter 879.8 Active Giles Tatum [employer] Open wound(s) (multiple) of unspecified site(s) except limbs, without mention of complication Lesion of skin of face 709.9 Active Giles Tatum [employer] Unspecified disorder of skin and subcutaneous tissue [...] bilateral ICD-729.5 Kerry Castillo MD 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, 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 Simon Castillo MD Hand pain, [...] MG ORAL TABLET 1 po qd BUMETANIDE 78522206950 Active Simon Castillo MD Active AUGMENTIN 875-125 MG ORAL TABLET 1 po BID x 10 days AMOXICILLIN-POT CLAVULANATE 73721824049 No Longer Active Simon Castillo MD Active PIOGLITAZONE HCL 30 MG ORAL TABLET 1 po qd PIOGLITAZONE HCL 90147671095 Active Simon Castillo MD Active GLIMEPIRIDE 4 MG ORAL TABLET 1 po BID GLIMEPIRIDE 68541627983 Active Simon Castillo MD Active ASPIRIN EC 81 MG ORAL TABLET DELAYED RELEASE 1 po qd ASPIRIN 90376533139 Active Simon Castillo MD Active CLOTRIMAZOLE 1 % EXTERNAL CREAM Apply to affected area of feet twice daily PRN Rash CLOTRIMAZOLE 78464017290 No Longer Active Simon Castillo MD Active PREDNISONE 5 MG ORAL TABLET 1 po BID PREDNISONE 81844050681 Active Dolly MCDERMOTT Active FISH OIL 1000 MG ORAL CAPSULE DELAYED RELEASE 1 po BID OMEGA- 3 FATTY ACIDS 32015523448 Active Simon Castillo MD Active LISINOPRIL 10 MG ORAL TABLET 1 p qd LISINOPRIL 78263441201 Active Simon Castillo MD Active CLARITIN 10 MG ORAL TABLET 1 tablet by mouth daily as needed for allergies LORATADINE 91201337441 No Longer Active Simon Castillo MD Active TRIAMCINOLONE ACETONIDE 0.1 % EXTERNAL OINTMENT Apply to affected areas TID for up to 2 weeks TRIAMCINOLONE ACETONIDE 76122045546 No Longer Active Simon Castillo MD Active LASIX 20 MG ORAL TABLET 1 tablet by mouth daily x 2 days FUROSEMIDE 00786711452 No Longer Active Simon Castillo MD Active SULFASALAZINE 500 MG ORAL TABLET DELAYED RELEASE 2 tabs BID 02/26 SULFASALAZINE 77004381819 No Longer Active Neto Oshea DO Active PREDNISONE 20 MG ORAL TABLET 2 tabs daily for 3 days, 1 tab daily for 3 days, 1/2 tab daily for 2 days PREDNISONE 80382468190 No Longer Active Giles Tatum APRN Active PREDNISONE 20 MG ORAL TABLET 1 tablet daily for airway inflammation PREDNISONE 48213095968 No Longer Active Giles Tatum APRN Active AZITHROMYCIN 250 MG ORAL TABLET 2 po qd x 1 day, then 1 po qd x 4 days 01/28 AZITHROMYCIN 83535373463 No Longer Active Giles Tatum APRN Active HYDROCODONE-ACETAMINOPHEN 5-325 MG ORAL TABLET 1 tab by mouth 8 hours as needed for pain HYDROCODONE-ACETAMINOPHEN 70599967945 Active Simon Castillo MD Active TRAMADOL HCL 50 MG ORAL TABLET 1 po q6hr PRN Pain TRAMADOL HCL 11393791363 No Longer Active Simon Castillo MD Active PREDNISONE 5 MG ORAL TABLET 1 po qod PREDNISONE 26195687116 No Longer Active Simon Castillo MD Active SYMBICORT 160-4.5 MCG/ACT INHALATION AEROSOL 2 puff BID BUDESONIDE-FORMOTEROL FUMARATE 15884279045 No Longer Active Simon Castillo MD Active FLONASE 50 MCG/ACT NASAL SUSPENSION 2 puffs in each nostril daily FLUTICASONE PROPIONATE 83648763796 No Longer Active Simon Castillo MD Active PREDNISONE 20 MG ORAL TABLET 2 tabs daily for 5 days, then 1 daily for 5 days PREDNISONE 63105458818 No Longer Active Simon Castillo MD Active PREDNISONE 20 MG ORAL TABLET 2 tabs daily for 5 days, then 1 daily for 5 days , then 0.5 for 4 days PREDNISONE 99330748807 No Longer Active Simon Castillo MD Active PREDNISONE 20 MG ORAL TABLET 2 tabs daily for 3 days, 1 tab daily for 3 days, 1/2 tab daily for 2 days PREDNISONE 69429177487 No Longer Active Simon Castillo MD Active AZITHROMYCIN 250 MG ORAL TABLET 2 po qd x 1 day, then 1 po qd x 4 days 03/16 AZITHROMYCIN 97358151233 No Longer Active Simon Castillo MD Active CARVEDILOL 6.25 MG ORAL TABLET 1 po BID CARVEDILOL 03697883082 Active Simon Castillo MD Active LISINOPRIL-HYDROCHLOROTHIAZIDE 20-12.5 MG ORAL TABLET 1/2 tab by mouth daily LISINOPRIL-HYDROCHLOROTHIAZIDE 77796688768 No Longer Active Simon Castillo MD Active TRAMADOL HCL 50 MG ORAL TABLET 1-2 tablets every 6 hours as needed for pain TRAMADOL HCL 45953556225 Active Giles Nashtico HEMPHILL Active PREDNISONE 5 MG ORAL TABLET Take one po qod PREDNISONE 28394263001 No Longer Active Simon Castillo MD Active GLYBURIDE 5 MG ORAL TABLET Take one by mouth daily GLYBURIDE 26239015138 No Longer Active Simon Castillo MD Active LEVAQUIN 750 MG ORAL TABLET 1 po qod x 5 doses LEVOFLOXACIN 21346768545 No Longer Active Simon Castillo MD Active CETIRIZINE HCL 10 MG ORAL TABLET 1 po qd as needed for allergies CETIRIZINE HCL 74775352403 No Longer Active Simon Castillo MD Active BILBERRY CAPSULE 1 tab daily BILBERRY (VACCINIUM MYRTILLUS) CAPS 45723925648 Active Simon Castillo MD Active ATENOLOL 50 MG ORAL TABLET Take one by mouth daily ATENOLOL 01558727343 No Longer Active Simon Castillo MD Active FLONASE 50 MCG/ACT NASAL SUSPENSION 2 puffs in each nostril daily FLUTICASONE PROPIONATE 26391202578 No Longer Active Simon Castillo MD Active GLYBURIDE 5 MG ORAL TABLET Take one by mouth daily GLYBURIDE 74036062219 No Longer Active Simon Castillo MD Active SYMBICORT 80-4.5 MCG/ACT INHALATION AEROSOL 2 puffs twice a day BUDESONIDE-FORMOTEROL FUMARATE 32004004526 No Longer Active Simon Castillo MD Active PREDNISONE 20 MG ORAL TABLET 2 tabs daily for 4 days, 1 tab daily for 4 days, 1/2 tab daily for 4 days PREDNISONE 55644111558 No Longer Active Simon Castillo MD Active AMOXICILLIN 500 MG ORAL CAPSULE 2 po BID x 10 days AMOXICILLIN 76358192468 No Longer Active Simon Castillo MD Active METFORMIN HCL 1000 MG ORAL TABLET 1 by mount twice a day METFORMIN HCL 58087168386 No Longer Active Simon Castillo MD Active LUTEIN-ZEAXANTHIN 6-1 MG ORAL TABLET Take 2 by mouth daily LUTEIN- ZEAXANTHIN 07231820711 Active Simon Castillo MD Active IBUPROFEN 800 MG ORAL TABLET Take 1 tab every 6 hrs prn IBUPROFEN 08023934865 No Longer Active Simon Castillo MD Active GLYBURIDE 2.5 MG ORAL TABLET Take one by mouth daily GLYBURIDE 94671324382 No Longer Active Simon Castillo MD Active LANCETS 2 qd LANCETS 56383624695 Active Pamela Conde Active ACACIA CONTOUR TEST IN VITRO STRIP Use with testing twice daily GLUCOSE BLOOD 62208082744 Active Simon Castillo MD Active GLYBURIDE 2.5 MG ORAL TABLET Take one by mouth daily GLYBURIDE 2.5 MG ORAL TABLET 597252 GLYBURIDE Inactive PREDNISONE 20 MG ORAL TABLET 2 tabs daily for 4 days, 1 tab daily for 4 days, 1/2 tab daily for 4 days PREDNISONE 20 MG ORAL TABLET 956892 PREDNISONE Inactive SYMBICORT 80-4.5 MCG/ACT INHALATION AEROSOL 2 puffs twice a day SYMBICORT 80-4.5 MCG/ACT INHALATION AEROSOL BUDESONIDE- FORMOTEROL FUMARATE Inactive FLONASE 50 MCG/ACT NASAL SUSPENSION 2 puffs in each nostril daily FLONASE 50 MCG/ACT NASAL SUSPENSION 0009017 FLUTICASONE PROPIONATE Inactive ATENOLOL 50 MG ORAL TABLET Take one by mouth daily ATENOLOL 50 MG ORAL TABLET 068048 ATENOLOL Inactive CETIRIZINE HCL 10 MG ORAL TABLET 1 po qd as needed for allergies CETIRIZINE HCL 10 MG ORAL TABLET 0157362 CETIRIZINE HCL Inactive LEVAQUIN 750 MG ORAL TABLET 1 po qod x 5 doses LEVAQUIN 750 MG ORAL TABLET 176762 LEVOFLOXACIN Inactive GLYBURIDE 5 MG ORAL TABLET Take one by mouth daily GLYBURIDE 5 MG ORAL TABLET 046725 GLYBURIDE Inactive PREDNISONE 5 MG ORAL TABLET Take one po qod PREDNISONE 5 MG ORAL TABLET 057372 PREDNISONE Inactive PREDNISONE 20 MG ORAL TABLET 2 tabs daily for 5 days, then 1 daily for 5 days PREDNISONE 20 MG ORAL TABLET 878749 PREDNISONE Inactive FLONASE 50 MCG/ACT NASAL SUSPENSION 2 puffs in each nostril daily FLONASE 50 MCG/ACT NASAL SUSPENSION 2073185 FLUTICASONE PROPIONATE Inactive SYMBICORT 160-4.5 MCG/ACT INHALATION AEROSOL 2 puff BID SYMBICORT 160-4.5 MCG/ACT INHALATION AEROSOL BUDESONIDE-FORMOTEROL FUMARATE Inactive PREDNISONE 5 MG ORAL TABLET 1 po qod PREDNISONE 5 MG ORAL TABLET 184296 PREDNISONE Inactive PREDNISONE 20 MG ORAL TABLET 1 tablet daily for airway inflammation PREDNISONE 20 MG ORAL TABLET 647644 PREDNISONE Inactive SULFASALAZINE 500 MG ORAL TABLET DELAYED RELEASE 2 tabs BID 02/26 SULFASALAZINE 500 MG ORAL TABLET DELAYED RELEASE 888818 SULFASALAZINE Inactive LASIX 20 MG ORAL TABLET 1 tablet by mouth daily x 2 days LASIX 20 MG ORAL TABLET 063570 FUROSEMIDE Inactive CLARITIN 10 MG ORAL TABLET 1 tablet by mouth daily as needed for allergies CLARITIN 10 MG ORAL TABLET 761862 LORATADINE Inactive CLOTRIMAZOLE 1 % EXTERNAL CREAM Apply to affected area of feet twice daily PRN Rash CLOTRIMAZOLE 1 % EXTERNAL CREAM 005809 CLOTRIMAZOLE Inactive AMOXICILLIN 500 MG ORAL CAPSULE 2 po BID x 10 days AMOXICILLIN 500 MG ORAL CAPSULE 020034 AMOXICILLIN Inactive GLYBURIDE 5 MG ORAL TABLET Take one by mouth daily GLYBURIDE 5 MG ORAL TABLET 294944 GLYBURIDE Inactive AZITHROMYCIN 250 MG ORAL TABLET 2 po qd x 1 day, then 1 po qd x 4 days 03/16 AZITHROMYCIN 250 MG ORAL TABLET 224139 AZITHROMYCIN Inactive PREDNISONE 20 MG ORAL TABLET 2 tabs daily for 3 days, 1 tab daily for 3 days, 1/2 tab daily for 2 days PREDNISONE 20 MG ORAL TABLET 016380 PREDNISONE Inactive PREDNISONE 20 MG ORAL TABLET 2 tabs daily for 5 days, then 1 daily for 5 days , then 0.5 for 4 days PREDNISONE 20 MG ORAL TABLET 588488 PREDNISONE Inactive AZITHROMYCIN 250 MG ORAL TABLET 2 po qd x 1 day, then 1 po qd x 4 days 01/28 AZITHROMYCIN 250 MG ORAL TABLET 968902 AZITHROMYCIN Inactive PREDNISONE 20 MG ORAL TABLET 2 tabs daily for 3 days, 1 tab daily for 3 days, 1/2 tab daily for 2 days PREDNISONE 20 MG ORAL TABLET 656666 PREDNISONE Inactive TRIAMCINOLONE ACETONIDE 0.1 % EXTERNAL OINTMENT Apply to affected areas TID for up to 2 weeks TRIAMCINOLONE ACETONIDE 0.1 % EXTERNAL OINTMENT 9711583 TRIAMCINOLONE ACETONIDE Inactive AUGMENTIN 875-125 MG ORAL TABLET 1 po BID x 10 days AUGMENTIN 875-125 MG ORAL TABLET 607058 AMOXICILLIN-POT CLAVULANATE Inactive Immunizations Vaccine Administration Date [...] Peptide - Chemistry sodium, serum 142 mmol/L 422-321 9695/07/18 potassium, serum 5.0 mmol/L 3.5-5.2 chloride, serum [...] Panel - Chemistry sodium, serum 140 mmol/L 717-376 4518/07/13 carbon dioxide, venous blood 23.7 mmol/L 21.0-32.0 [...] Panel - Chemistry cholesterol, serum 126 mg/dL 759-457 8859/02/07 triglyceride, serum, fasting 83 mg/dL 30-200 HDL cholesterol, serum 70 mg/dL 32-96 LDL cholesterol, serum 39 mg/dL 0-130 hemoglobin A1C, blood, as % of total hemoglobin 8.3 % 4.3-6.0 sodium, serum 141 mmol/L 012-313 0663/02/07 carbon dioxide, venous blood 26.0 mmol/L 21.0-32.0 [...] Negative;Positive Encounters Code Encounter Date Provider Facility CPT-14446 Level 3 Est. Patient 12:04:38 NURSING SERVICE DIRECTOR Giles Tatum [facility] CPT-94200 Level 3 Est. Patient 11:57:09 NURSING SERVICE DIRECTOR Giles Tatum [facility] CPT-51810 Level 3 Est. Patient 11:48:57 NURSING SERVICE DIRECTOR Giles Tatum [facility] CPT-14424 Level 4 Est. Patient 09:54:36 CDT Simon Castillo MD [facility] CPT-91198 Level 4 Est. Patient 08:48:38 CDT Simon Castillo MD [facility] CPT-78185 Level 4 Est. Patient 09:54:08 CDT Simon Castillo MD [facility] CPT-71783 Level 4 Est. Patient 16:11:23 CDT Simon Castillo MD [facility] CPT-42778 Level 4 Est. Patient 09:29:28 NURSING SERVICE DIRECTOR Simon Castillo MD [facility] CPT-35298 Level 3 Est. Patient 09:18:25 CDT Simon Castillo MD [facility] CPT-10619 Level 4 Est. Patient 11:51:23 CDT Simon Castillo MD [facility] CPT-96869 Level 4 Est. Patient 14:32:04 CDT Neto Oshea DO [facility] CPT-71440 Level 3 Est. Patient 08:41:43 CDT Jimeil Salcidol [facility] CPT-89133 Level 3 Est. Patient 08:40:53 CDT 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 [facility] CPT-05431 Level 3 Est. Patient 08:36:52 CDT 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 [facility] CPT-01351 Level 3 Est. Patient 09:08:44 CDT 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 [facility] CPT-78622 Level 4 Est. Patient 09:17:32 NURSING SERVICE DIRECTOR Simon Castillo MD [facility] CPT-05715 Level 3 Est. Patient 11:22:22 NURSING SERVICE DIRECTOR Simon Castillo MD [facility] CPT-67717 Level 3 Est. Patient 09:02:14 CDT Simon Castillo MD [facility] CPT-82859 Level 4 Est. Patient 08:47:25 CDT Simon Castillo MD [facility] CPT-54465 Level 4 Est. Patient 10:17:25 CDT Simon Castillo MD [facility] CPT-81400 Level 4 Est. Patient 10:10:09 NURSING SERVICE DIRECTOR Simon Castillo MD [facility] CPT-18748 Level 4 Est. Patient 11:48:19 CDT Simon Castillo MD [facility] CPT-53453 Level 4 Est. Patient 08:59:29 CDT Simon Castillo MD [facility] CPT-58309 Level 4 Est. Patient 10:52:51 NURSING SERVICE DIRECTOR Simon Castillo MD [facility] CPT-06142 Level 4 Est. Patient 11:50:30 CDT Simon Castillo MD [facility] CPT-51138 Level 4 Est. Patient 09:54:46 CDT Simon Castillo MD [facility] CPT-92283 Level 3 Est. Patient 11:10:14 CDT Simon Castillo MD [facility] CPT-02985 Level 4 Est. Patient 09:44:02 CDT Simon Castillo MD [facility] CPT-90456 Level 3 Est. Patient 09:27:48 CDT Simon Castillo MD [facility] CPT-74040 Level 3 Est. Patient 09:58:06 NURSING SERVICE DIRECTOR Simon Castillo MD [facility] CPT-54133 Level 3 Est. Patient 09:51:35 CDT Simon Castillo MD [facility] Procedures Code Procedure Name Date Entry Date Standard Description CPT-95223 EKG Trac and Interp - XRAY USE ONLY 12:19:18 NURSING SERVICE DIRECTOR 09/29 CPT-17410 Chest, 2 views 12:19:17 NURSING SERVICE DIRECTOR CPT-Cryo Cryotherapy 09:54:37 CDT CPT-40551 First Vx - Ix admin for Medicare patients 09:13:10 CDT CPT-36056 Fluzone High-Dose Intramuscular Suspension 09:13:10 CDT CPT-G0439 [facility] Annual Wellness Exam 09:41:17 CDT CPT-01235 Lipid - LAB USE ONLY 17:15:33 CDT CPT-02603 HGBA1C - LAB USE ONLY 17:15:33 CDT CPT-47270 CMP - LAB USE ONLY 17:15:33 CDT CPT-27338 Venipuncture Draw Fee 17:15:33 CDT CPT-TCM Transitional Care Mgmt-High 11:01:28 NURSING SERVICE DIRECTOR CPT-38400 First Vx - Ix admin for Medicare patients 17:33:39 CDT CPT-06898 Fluzone High-Dose Intramuscular Suspension 17:33:39 CDT CPT-G0438 Initial Annual Wellness Exam 08:57:30 CDT CPT-22683 Chest 2V Frontal and Lat - XRAY USE ONLY 09:00:14 CDT CPT-75302 Venipuncture Draw Fee 13:33:02 CDT CPT-04446 Bone Density 09:37:49 NURSING SERVICE DIRECTOR CPT-41170 Fluzone High Dose 17:20:42 CDT CPT-91664 Prevnar 13 17:20:42 CDT CPT-90945 Administration 2+ single or combination vaccines inc oral 17:20:42 CDT CPT-89083 Administration single or combination vaccine inc oral 17 :20:42 CDT CPT-46128 Hand comp min 3V 09:24:38 CDT CPT-72479 Venipuncture Draw Fee 08:07:29 NURSING SERVICE DIRECTOR CPT-59213 Venipuncture Draw Fee 09:02:51 NURSING SERVICE DIRECTOR CPT-29295 Venipuncture Draw Fee 12:45:08 NURSING SERVICE DIRECTOR CPT-89743 Venipuncture Draw Fee 09:25:31 CDT CPT-G0008 Administration of Influenza Virus Vaccine 14:41:29 CDT CPT-47152 Fluzone High-Dose Intramuscular Suspension 14:41:29 CDT CPT-Cryo Cryotherapy 11:48:20 CDT CPT-57035 EKG Trac and Interp 09:21:58 CDT CPT-54578 Chest 2V Frontal and Lat 09:21:58 CDT CPT-Cryo Cryotherapy 10:54:51 NURSING SERVICE DIRECTOR CPT-18487 Administration 2+ single or combination vaccines inc oral 10:42:19 CDT CPT-39807 Administration single or combination vaccine inc oral 10 :42:19 CDT CPT-79549 Pneumovax 10:42:19 CDT CPT-74171 Influenza High Dose age 65+ 10:42:19 CDT CPT-95009 Administration single or combination vaccine inc oral 13 :18:54 CDT CPT-06407 Influenza High Dose age 65+ 13:18:54 CDT CPT-76866 Venipuncture Draw Fee 11:53:16 CDT CPT-17893 LS spine comp w obliq 11:03:13 CDT CPT-Cryo Cryotherapy 08:27:16 NURSING SERVICE DIRECTOR CPT-39553 Administration single or combination vaccine inc oral 10 :56:34 CDT CPT-29856 Influenza High Dose age 65+ 10:56:34 CDT
--- OUTSIDE RECORDS SUMMARY | 2018-03-31 17:03 | XMS REPORT | Clinical Summary ---
Author Author Admin, E Organization [employer] Address Unknown Phone Unavailable Allergies, Adverse Reactions, [...] of retina, unspecified Wellness exam V70.0 Active Gilse Tatum APRN Routine general medical examination at a health care facility LUNG CANCER ICD-V16.1 Inactive Simon Castillo MD FH DIABETES ICD-V18.0 Inactive Simon Castillo MD SEBORRHEIC KERATOSIS ICD-702.19 Inactive Simon Castillo MD BRONCHITIS, ACUTE ICD-466.0 Inactive Simon Castillo MD SINUSITIS, ACUTE ICD-461.9 Inactive Simon Castillo MD ABDOMINAL PAIN RIGHT LOWER QUADRANT ICD-789.03 Inactive Simon Castillo MD SCIATICA ICD-724.3 Inactive Simon Castillo MD 2012 ABDOMINAL TENDERNESS ICD-789.60 Inactive Simon Castillo MD Obesity ICD-278.00 Inactive Simon Castillo MD 2013 Actinic keratosis ICD-702.0 Inactive Simon Castillo MD Chest pain ICD-786.50 Inactive Simon Castillo MD Cough ICD-786.2 Inactive Simon Castillo MD Eczema ICD-692.9 Kerry Castillo MD 02/27 Bronchitis, acute ICD-466.0 Inactive Simon Castillo MD Tinea pedis ICD-110.4 Kerry Castillo MD Hand pain, bilateral ICD-729.5 Kerry Castillo MD CHEST WALL PAIN, HX OF ICD-V15.89 Kerry Castillo MD Hand pain, bilateral ICD-729.5 Kerry Castillo MD BENIGN PROSTATIC HYPERTROPHY, MILD, HX OF ICD-V13.89 Kerry Castillo MD Steroid use, prison ICD-V58.65 Kerry Castillo MD Dyspnea ICD-786.09 Kerry Castillo MD 2016 Peripheral edema ICD-782.3 Inactive Simon Castillo MD Pneumonia, right lower lobe ICD-486 Inactive Simon Castillo MD 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 Inactive Simon Castillo MD Pharyngitis ICD-462 Inactive Simon Castillo MD Medication List Medication Instructions Start Date Stop Date Generic Name NDC Status Provider Patient Instruction PIOGLITAZONE HCL 30 MG ORAL TABS 1 po qd PIOGLITAZONE HCL 22091527589 Active Simon Castillo MD Active GLIMEPIRIDE 4 MG ORAL TABS 1 po BID GLIMEPIRIDE 26242525698 Active Simon Castillo MD Active ASPIRIN EC 81 MG ORAL TBEC 1 po qd ASPIRIN 86379574082 Active Simon Castillo MD Active CLOTRIMAZOLE 1 % EXT CREA Apply to affected area of feet twice daily PRN Rash CLOTRIMAZOLE 64156554660 No Longer Active Simon Castillo MD Active PREDNISONE 5 MG TAB 1 po BID PREDNISONE 42657285916 Active Simon Castillo MD Active FISH OIL 1000 MG CPDR 1 po BID OMEGA-3 FATTY ACIDS 91669335785 Active Simon Castillo MD Active LISINOPRIL 10 MG TABS 1 p qd LISINOPRIL 08230718383 Active Simon Castillo MD Active CLARITIN 10 MG TAB 1 tablet by mouth daily as needed for allergies LORATADINE 85489742018 No Longer Active Simon Castillo MD Active TRIAMCINOLONE ACETONIDE 0.1 % OINT Apply to affected areas TID for up to 2 weeks TRIAMCINOLONE ACETONIDE 37290420613 No Longer Active Simon Castillo MD Active LASIX 20 MG TAB 1 tablet by mouth daily x 2 days FUROSEMIDE 26118843864 No Longer Active Simon Castillo MD Active SULFASALAZINE 500 MG ORAL TBEC 2 tabs BID SULFASALAZINE 95652339611 No Longer Active Neto Oshea DO Active PREDNISONE 20 MG TAB 2 tabs daily for 3 days, 1 tab daily for 3 days, 1/2 tab daily for 2 days PREDNISONE 02147852313 No Longer Active 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 PREDNISONE 20 MG TAB 1 tablet daily for airway inflammation 02/25 PREDNISONE 81706648489 No Longer Active 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 AZITHROMYCIN 250 MG TABS 2 po qd x 1 day, then 1 po qd x 4 days AZITHROMYCIN 62189445408 No Longer Active 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 HYDROCODONE-ACETAMINOPHEN 5-325 MG TABS 1 tab by mouth 8 hours as needed for pain HYDROCODONE-ACETAMINOPHEN 44847945006 Active Simon Castillo MD Active TRAMADOL HCL 50 MG TABS 1 po q6hr PRN Pain TRAMADOL HCL 74969887520 No Longer Active Simon Castillo MD Active PREDNISONE 5 MG TABS 1 po qod PREDNISONE 63785942846 No Longer Active Simon Castillo MD Active SYMBICORT 160-4.5 MCG/ACT AERO 2 puff BID BUDESONIDE- FORMOTEROL FUMARATE 42808615561 No Longer Active Simon Castillo MD Active FLONASE 50 MCG/ACT SUSP 2 puffs in each nostril daily FLUTICASONE PROPIONATE 18210612422 No Longer Active Simon Castillo MD Active PREDNISONE 20 MG TAB 2 tabs daily for 5 days, then 1 daily for 5 days PREDNISONE 83345980228 No Longer Active Simon Castillo MD Active PREDNISONE 20 MG TAB 2 tabs daily for 5 days, then 1 daily for 5 days, then 0.5 for 4 days PREDNISONE 94544148075 No Longer Active Simon Castillo MD Active PREDNISONE 20 MG TAB 2 tabs daily for 3 days, 1 tab daily for 3 days, 1/2 tab daily for 2 days PREDNISONE 80502373033 No Longer Active Simon Castillo MD Active AZITHROMYCIN 250 MG TABS 2 po qd x 1 day, then 1 po qd x 4 days AZITHROMYCIN 58742718917 No Longer Active Simon Castillo MD Active CARVEDILOL 6.25 MG TABS 1 po BID CARVEDILOL 57158267068 Active Simon Castillo MD Active LISINOPRIL-HYDROCHLOROTHIAZIDE 20-12.5 MG TABS 1/2 tab by mouth daily LISINOPRIL-HYDROCHLOROTHIAZIDE 68734025954 No Longer Active Simon Castillo MD Active TRAMADOL HCL 50 MG TABS 1-2 tablets every 6 hours as needed for pain TRAMADOL HCL 34993211120 Active Giles Tatum APRN Active PREDNISONE 5 MG TAB Take one po qod PREDNISONE 97165825733 No Longer Active Simon Castillo MD Active GLYBURIDE 5 MG TAB Take one by mouth daily GLYBURIDE 02966033945 No Longer Active Simon Castillo MD Active LEVAQUIN 750 MG TABS 1 po qod x 5 doses LEVOFLOXACIN 12983737271 No Longer Active Simon Castillo MD Active CETIRIZINE HCL 10 MG TABS 1 po qd as needed for allergies CETIRIZINE HCL 32203640474 No Longer Active Simon Castillo MD Active BILBERRY CAPS 1 tab daily BILBERRY (VACCINIUM MYRTILLUS) CAPS 72255220642 Active Simon Castillo MD Active ATENOLOL 50 MG TABS Take one by mouth daily ATENOLOL 98720814736 No Longer Active Simon Castillo MD Active FLONASE 50 MCG/ACT SUSP 2 puffs in each nostril daily FLUTICASONE PROPIONATE 37741132909 No Longer Active Simon Castillo MD Active GLYBURIDE 5 MG TAB Take one by mouth daily GLYBURIDE 06869249258 No Longer Active Simon Castillo MD Active SYMBICORT 80-4.5 MCG/ACT AERO 2 puffs twice a day BUDESONIDE-FORMOTEROL FUMARATE 51555181555 No Longer Active Simon Castillo MD Active PREDNISONE 20 MG TAB 2 tabs daily for 4 days, 1 tab daily for 4 days, 1/2 tab daily for 4 days PREDNISONE 64356698865 No Longer Active Simon Castillo MD Active AMOXICILLIN 500 MG CAPS 2 po BID x 10 days AMOXICILLIN 33688115435 No Longer Active Simon Castillo MD Active METFORMIN HCL 1000 MG TABS 1 by mounth twice a day METFORMIN HCL 15048701725 No Longer Active Smion Castillo MD Active LUTEIN-ZEAXANTHIN 6-1 MG TABS Take 2 by mouth daily LUTEIN-ZEAXANTHIN 09934558084 Active Simon Castillo MD Active IBUPROFEN 800 MG TABS Take 1 tab every 6 hrs prn IBUPROFEN 76224332643 No Longer Active Simon Castillo MD Active GLYBURIDE 2.5 MG TABS Take one by mouth daily GLYBURIDE 03122108102 No Longer Active Simon Castillo MD Active LANCETS MISC 2 qd LANCETS 42828241251 Active Pamela Conde Active ACACIA CONTOUR TEST STRP Use with testing twice daily GLUCOSE BLOOD 87206197356 Active Simon Castillo MD Active GLYBURIDE 2.5 MG TABS Take one by mouth daily GLYBURIDE 2.5 MG TABS 823607 GLYBURIDE Inactive PREDNISONE 20 MG TAB 2 tabs daily for 4 days, 1 tab daily for 4 days, 1/2 tab daily for 4 days PREDNISONE 20 MG TAB 022985 PREDNISONE Inactive SYMBICORT 80-4.5 MCG/ACT AERO 2 puffs twice a day SYMBICORT 80-4.5 MCG/ACT AERO BUDESONIDE-FORMOTEROL FUMARATE Inactive FLONASE 50 MCG/ACT SUSP 2 puffs in each nostril daily FLONASE 50 MCG/ACT SUSP 5235875 FLUTICASONE PROPIONATE Inactive ATENOLOL 50 MG TABS Take one by mouth daily ATENOLOL 50 MG TABS 220527 ATENOLOL Inactive CETIRIZINE HCL 10 MG TABS 1 po qd as needed for allergies CETIRIZINE HCL 10 MG TABS 0347036 CETIRIZINE HCL Inactive LEVAQUIN 750 MG TABS 1 po qod x 5 doses LEVAQUIN 750 MG TABS 026647 LEVOFLOXACIN Inactive GLYBURIDE 5 MG TAB Take one by mouth daily GLYBURIDE 5 MG TAB 696785 GLYBURIDE Inactive PREDNISONE 5 MG TAB Take one po qod PREDNISONE 5 MG TAB 453178 PREDNISONE Inactive PREDNISONE 20 MG TAB 2 tabs daily for 5 days, then 1 daily for 5 days PREDNISONE 20 MG TAB 910504 PREDNISONE Inactive FLONASE 50 MCG/ACT SUSP 2 puffs in each nostril daily FLONASE 50 MCG/ACT SUSP 4761866 FLUTICASONE PROPIONATE Inactive SYMBICORT 160-4.5 MCG/ACT AERO 2 puff BID SYMBICORT 160-4.5 MCG/ACT AERO BUDESONIDE-FORMOTEROL FUMARATE Inactive PREDNISONE 5 MG TABS 1 po qod PREDNISONE 5 MG TABS 393791 PREDNISONE Inactive PREDNISONE 20 MG TAB 1 tablet daily for airway inflammation 02/25 PREDNISONE 20 MG TAB 706647 PREDNISONE Inactive SULFASALAZINE 500 MG ORAL TBEC 2 tabs BID SULFASALAZINE 500 MG ORAL TBEC 368301 SULFASALAZINE Inactive LASIX 20 MG TAB 1 tablet by mouth daily x 2 days LASIX 20 MG TAB 382335 FUROSEMIDE Inactive CLARITIN 10 MG TAB 1 tablet by mouth daily as needed for allergies CLARITIN 10 MG TAB 084619 LORATADINE Inactive CLOTRIMAZOLE 1 % EXT CREA Apply to affected area of feet twice daily PRN Rash CLOTRIMAZOLE 1 % EXT CREA 057765 CLOTRIMAZOLE Inactive AMOXICILLIN 500 MG CAPS 2 po BID x 10 days AMOXICILLIN 500 MG CAPS 978426 AMOXICILLIN Inactive GLYBURIDE 5 MG TAB Take one by mouth daily GLYBURIDE 5 MG TAB 734671 GLYBURIDE Inactive AZITHROMYCIN 250 MG TABS 2 po qd x 1 day, then 1 po qd x 4 days AZITHROMYCIN 250 MG TABS 3396129 AZITHROMYCIN Inactive PREDNISONE 20 MG TAB 2 tabs daily for 3 days, 1 tab daily for 3 days, 1/2 tab daily for 2 days PREDNISONE 20 MG TAB 126538 PREDNISONE Inactive PREDNISONE 20 MG TAB 2 tabs daily for 5 days, then 1 daily for 5 days, then 0.5 for 4 days PREDNISONE 20 MG TAB 561451 PREDNISONE Inactive AZITHROMYCIN 250 MG TABS 2 po qd x 1 day, then 1 po qd x 4 days AZITHROMYCIN 250 MG TABS 2660282 AZITHROMYCIN Inactive PREDNISONE 20 MG TAB 2 tabs daily for 3 days, 1 tab daily for 3 days, 1/2 tab daily for 2 days PREDNISONE 20 MG TAB 186910 PREDNISONE Inactive TRIAMCINOLONE ACETONIDE 0.1 % OINT Apply to affected areas TID for up to 2 weeks TRIAMCINOLONE ACETONIDE 0.1 % OINT 8800276 TRIAMCINOLONE ACETONIDE Inactive Immunizations Vaccine Administration Date [...] 10^3/MM^3 10*3/mm3 142-424 Lab Report: Lipid Panel, BA1C, Comp. Metabolic Panel - Chemistry cholesterol, serum 126 mg/dL 612-573 5150/02/07 triglyceride, serum, fasting 83 mg/dL 30-200 HDL cholesterol, serum 70 mg/dL 32-96 LDL cholesterol, serum 39 mg/dL 0-130 hemoglobin A1C, blood, as % of total hemoglobin 8.3 % 4.3-6.0 sodium, serum 141 mmol/L 864-669 6197/02/07 carbon dioxide, venous blood 26.0 mmol/L 21.0-32.0 [...] 0.00-1.00 Encounters Code Encounter Date Provider Facility CPT-33166 Level 4 Est. Patient 09:54:08 CDT Simon Castillo MD [facility] CPT-92462 Level 4 Est. Patient 16:11:23 CDT Smion Castillo MD [facility] CPT-46686 Level 4 Est. Patient 09:29:28 PAPER INSPECTOR Simon Castillo MD [facility] CPT-07032 Level 3 Est. Patient 09:18:25 CDT Simon Castillo MD [facility] CPT-62782 Level 4 Est. Patient 11:51:23 CDT Simon Castillo MD [facility] CPT-07278 Level 4 Est. Patient 14:32:04 CDT Neto Oshea DO [facility] CPT-19558 Level 3 Est. Patient 08:41:43 CDT Giles Tatum [facility] CPT-83664 Level 3 Est. Patient 08:40:53 CDT Giles Tatum [facility] CPT-05964 Level 3 Est. Patient 08:36:52 CDT Giles Tatum [facility] CPT-00552 Level 3 Est. Patient 09:08:44 CDT Giles Tatum [facility] CPT-80539 Level 4 Est. Patient 09:17:32 PAPER INSPECTOR Simon Castillo MD [facility] CPT-96144 Level 3 Est. Patient 11:22:22 PAPER INSPECTOR Simon Castillo MD [facility] CPT-92093 Level 3 Est. Patient 09:02:14 CDT Simon Castillo MD [facility] CPT-29230 Level 4 Est. Patient 08:47:25 CDT Simon Castillo MD [facility] CPT-66789 Level 4 Est. Patient 10:17:25 CDT Simon Castillo MD [facility] CPT-88356 Level 4 Est. Patient 10:10:09 PAPER INSPECTOR Simon Castillo MD [facility] CPT-62998 Level 4 Est. Patient 11:48:19 CDT Simon Castillo MD [facility] CPT-60831 Level 4 Est. Patient 08:59:29 CDT Simon Castillo MD [facility] CPT-22115 Level 4 Est. Patient 10:52:51 PAPER INSPECTOR Simon Castillo MD [facility] CPT-53866 Level 4 Est. Patient 11:50:30 CDT Simon Castillo MD [facility] CPT-60623 Level 4 Est. Patient 09:54:46 CDT Simon Castillo MD [facility] CPT-85166 Level 3 Est. Patient 11:10:14 CDT Simon Castillo MD [facility] CPT-05089 Level 4 Est. Patient 09:44:02 CDT Simon Castillo MD [facility] CPT-19787 Level 3 Est. Patient 09:27:48 CDT Simon Castillo MD [facility] CPT-54299 Level 3 Est. Patient 09:58:06 PAPER INSPECTOR Simon Castillo MD [facility] CPT-87227 Level 3 Est. Patient 09:51:35 CDT Simon Castillo MD [facility] Procedures Code Procedure Name Date Entry Date Standard Description CPT-G0439 [facility] Annual Wellness Exam 09:41:17 CDT CPT-98239 Lipid - LAB USE ONLY 17:15:33 CDT CPT-80770 HGBA1C - LAB USE ONLY 17:15:33 CDT CPT-10841 CMP - LAB USE ONLY 17:15:33 CDT CPT-88893 Venipuncture Draw Fee 17:15:33 CDT CPT-TCM Transitional Care Mgmt-High 11:01:28 PAPER INSPECTOR CPT-74607 First Vx - Ix admin for Medicare patients 17:33:39 CDT CPT-24885 Fluzone High-Dose Intramuscular Suspension 17:33:39 CDT CPT-G0438 Initial Annual Wellness Exam 08:57:30 CDT CPT-00332 Chest 2V Frontal and Lat - XRAY USE ONLY 09:00:14 CDT CPT-54834 Venipuncture Draw Fee 13:33:02 CDT CPT-48527 Bone Density 09:37:49 PAPER INSPECTOR CPT-61528 Fluzone High Dose 17:20:42 CDT CPT-59439 Prevnar 13 17:20:42 CDT CPT-04951 Administration 2+ single or combination vaccines inc oral 17:20:42 CDT CPT-49356 Administration single or combination vaccine inc oral 17 :20:42 CDT CPT-22187 Hand comp min 3V 09:24:38 CDT CPT-25046 Venipuncture Draw Fee 08:07:29 PAPER INSPECTOR CPT-88902 Venipuncture Draw Fee 09:02:51 PAPER INSPECTOR CPT-72584 Venipuncture Draw Fee 12:45:08 PAPER INSPECTOR CPT-79308 Venipuncture Draw Fee 09:25:31 CDT CPT-G0008 Administration of Influenza Virus Vaccine 14:41:29 CDT CPT-95716 Fluzone High-Dose Intramuscular Suspension 14:41:29 CDT CPT-Cryo Cryotherapy 11:48:20 CDT CPT-45690 EKG Trac and Interp 09:21:58 CDT CPT-72767 Chest 2V Frontal and Lat 09:21:58 CDT CPT-Cryo Cryotherapy 10:54:51 PAPER INSPECTOR CPT-56238 Administration 2+ single or combination vaccines inc oral 10:42:19 CDT CPT-09126 Administration single or combination vaccine inc oral 10 :42:19 CDT CPT-36870 Pneumovax 10:42:19 CDT CPT-02765 Influenza High Dose age 65+ 10:42:19 CDT CPT-44154 Administration single or combination vaccine inc oral 13 :18:54 CDT CPT-96885 Influenza High Dose age 65+ 13:18:54 CDT CPT-28564 Venipuncture Draw Fee 11:53:16 CDT CPT-00501 LS spine comp w obliq 11:03:13 CDT CPT-Cryo Cryotherapy 08:27:16 PAPER INSPECTOR CPT-83758 Administration single or combination vaccine inc oral 10 :56:34 CDT CPT-46954 Influenza High Dose age 65+ 10:56:34 CDT
--- OUTSIDE RECORDS SUMMARY | 2018-03-31 17:04 | XMS REPORT | Clinical Summary ---
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19 Inactive Simon Castillo MD BRONCHITIS, ACUTE ICD-466.0 Inactive Simon Castillo MD ABDOMINAL TENDERNESS ICD-789.60 Inactive Simon Castillo MD SINUSITIS, ACUTE ICD-461.9 [...] Obesity ICD-278.00 Inactive Simon Castillo MD 2013 Steroid use, detention ICD-V58.65 Inactive Simon Castillo MD Hand pain, bilateral ICD-729.5 Inactive Simon Castillo MD Tinea pedis ICD-110.4 Inactive Simon Castillo MD Hand pain, bilateral ICD-729.5 Kerry Castillo MD Medication List Medication Instructions Start Date Stop Date Generic Name NDC Status Provider Patient Instruction TRIAMCINOLONE ACETONIDE 0.1 % OINT Apply to affected areas TID for up to 2 weeks TRIAMCINOLONE ACETONIDE 44002033403 Active Simon Castillo MD Active LASIX 20 MG TAB 1 tablet by mouth daily x 2 days FUROSEMIDE 30071361983 No Longer Active Simon Castillo MD Active SULFASALAZINE 500 MG ORAL TBEC 2 tabs BID SULFASALAZINE 99250778121 No Longer Active Neto Oshea DO Active PREDNISONE 20 MG TAB 2 tabs daily for 3 days, 1 tab daily for 3 days, 1/2 tab daily for 2 days PREDNISONE 63960315922 No Longer Active Jilltriston Tatum APRN Active PREDNISONE 20 MG TAB 1 tablet daily for airway inflammation 02/25 PREDNISONE 42817488768 No Longer Active 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 CRITICAL CARE NURSE Active CLARITIN 10 MG TAB 1 tablet by mouth daily as needed for allergies LORATADINE 40530135107 Active Giles Tatum CRITICAL CARE NURSE Active AZITHROMYCIN 250 MG TABS 2 po qd x 1 day, then 1 po qd x 4 days AZITHROMYCIN 26407085521 No Longer Active 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 CRITICAL CARE NURSE Active GLIMEPIRIDE 2 MG ORAL TABS 1 po q a.m. GLIMEPIRIDE 45710626090 Active Simon Castillo MD Active HYDROCODONE-ACETAMINOPHEN 5-325 MG TABS 1 tab by mouth 8 hours as needed for pain HYDROCODONE-ACETAMINOPHEN 57423785419 Active Simon Castillo MD Active TRAMADOL HCL 50 MG TABS 1 po q6hr PRN Pain TRAMADOL HCL 53614067894 No Longer Active Simon Castillo MD Active PREDNISONE 5 MG TAB 1-2 tabs daily for rheumatoid arthritis PREDNISONE 69166924957 Active Simon Castillo MD Active PREDNISONE 5 MG TABS 1 po qod PREDNISONE 36756345901 No Longer Active Simon Castillo MD Active SYMBICORT 160-4.5 MCG/ACT AERO 2 puff BID BUDESONIDE- FORMOTEROL FUMARATE 49275874824 No Longer Active Simon Castillo MD Active FLONASE 50 MCG/ACT SUSP 2 puffs in each nostril daily FLUTICASONE PROPIONATE 51127872484 No Longer Active Simon Castillo MD Active PREDNISONE 20 MG TAB 2 tabs daily for 5 days, then 1 daily for 5 days PREDNISONE 77631838092 No Longer Active Simon Castillo MD Active PREDNISONE 20 MG TAB 2 tabs daily for 5 days, then 1 daily for 5 days, then 0.5 for 4 days PREDNISONE 73852664987 No Longer Active Simon Castillo MD Active CLOTRIMAZOLE 1 % EXT CREA Apply to affected area of feet twice daily PRN Rash CLOTRIMAZOLE 53498630558 Active Simon Castillo MD Active PREDNISONE 20 MG TAB 2 tabs daily for 3 days, 1 tab daily for 3 days, 1/2 tab daily for 2 days PREDNISONE 71953058675 No Longer Active Simon Castillo MD Active AZITHROMYCIN 250 MG TABS 2 po qd x 1 day, then 1 po qd x 4 days AZITHROMYCIN 48913141106 No Longer Active Simon Castillo MD Active LISINOPRIL 10 MG TABS 1 tablet by mouth daily LISINOPRIL 30131120302 Active Simon Castillo MD Active CARVEDILOL 6.25 MG TABS 1 po BID CARVEDILOL 28797632404 Active Simon Castillo MD Active LISINOPRIL-HYDROCHLOROTHIAZIDE 20-12.5 MG TABS 1/2 tab by mouth daily LISINOPRIL-HYDROCHLOROTHIAZIDE 95479772818 No Longer Active Simon Castillo MD Active TRAMADOL HCL 50 MG TABS 1-2 tablets every 6 hours as needed for pain TRAMADOL HCL 44668411997 Active Giles Tatum APRN Active PREDNISONE 5 MG TAB Take one po qod PREDNISONE 84438415606 No Longer Active Simon Castillo MD Active GLYBURIDE 5 MG TAB Take one by mouth daily GLYBURIDE 26401837609 No Longer Active Simon Castillo MD Active LEVAQUIN 750 MG TABS 1 po qod x 5 doses LEVOFLOXACIN 55459582162 No Longer Active Simon Castillo MD Active CETIRIZINE HCL 10 MG TABS 1 po qd as needed for allergies CETIRIZINE HCL 90208225694 No Longer Active Simon Castillo MD Active FISH OIL 1000 MG CPDR 1 pill by mouth twice daily for cholesterol OMEGA -3 FATTY ACIDS 01935560843 Active Simon Castillo MD Active BILBERRY CAPS 1 tab daily BILBERRY (VACCINIUM MYRTILLUS) CAPS 71755493950 Active Simon Castillo MD Active ATENOLOL 50 MG TABS Take one by mouth daily ATENOLOL 95416156121 No Longer Active Simon Castillo MD Active FLONASE 50 MCG/ACT SUSP 2 puffs in each nostril daily FLUTICASONE PROPIONATE 53539730396 No Longer Active Simon Castillo MD Active GLYBURIDE 5 MG TAB Take one by mouth daily GLYBURIDE 99287947718 No Longer Active Simon Castillo MD Active SYMBICORT 80-4.5 MCG/ACT AERO 2 puffs twice a day BUDESONIDE-FORMOTEROL FUMARATE 72816026996 No Longer Active Simon Castillo MD Active PREDNISONE 20 MG TAB 2 tabs daily for 4 days, 1 tab daily for 4 days, 1/2 tab daily for 4 days PREDNISONE 25907916435 No Longer Active Simon Castillo MD Active AMOXICILLIN 500 MG CAPS 2 po BID x 10 days AMOXICILLIN 33918635411 No Longer Active Simon Castillo MD Active METFORMIN HCL 1000 MG TABS 1 by mounth twice a day METFORMIN HCL 35571840150 No Longer Active Simon Castillo MD Active LUTEIN-ZEAXANTHIN 6-1 MG TABS Take 2 by mouth daily LUTEIN-ZEAXANTHIN 59207354986 Active Simon Castillo MD Active IBUPROFEN 800 MG TABS Take 1 tab every 6 hrs prn IBUPROFEN 68449137292 No Longer Active Simon Castillo MD Active GLYBURIDE 2.5 MG TABS Take one by mouth daily GLYBURIDE 76844082420 No Longer Active Simon Castillo MD Active LANCETS MISC 2 qd LANCETS 41446615171 Active Pamela Conde Active ACACIA CONTOUR TEST STRP Use with testing twice daily GLUCOSE BLOOD 96392452886 Active Simon Castillo MD Active ACACIA ASPIRIN 325 MG TABS Take one by mouth daily ASPIRIN 37615165072 Active Pamela Conde Active GLYBURIDE 2.5 MG TABS Take one by mouth daily GLYBURIDE 2.5 MG TABS 460922 GLYBURIDE Inactive PREDNISONE 20 MG TAB 2 tabs daily for 4 days, 1 tab daily for 4 days, 1/2 tab daily for 4 days PREDNISONE 20 MG TAB 816100 PREDNISONE Inactive SYMBICORT 80-4.5 MCG/ACT AERO 2 puffs twice a day SYMBICORT 80-4.5 MCG/ACT AERO BUDESONIDE-FORMOTEROL FUMARATE Inactive FLONASE 50 MCG/ACT SUSP 2 puffs in each nostril daily FLONASE 50 MCG/ACT SUSP FLUTICASONE PROPIONATE Inactive ATENOLOL 50 MG TABS Take one by mouth daily ATENOLOL 50 MG TABS 746283 ATENOLOL Inactive CETIRIZINE HCL 10 MG TABS 1 po qd as needed for allergies CETIRIZINE HCL 10 MG TABS 8553705 CETIRIZINE HCL Inactive LEVAQUIN 750 MG TABS 1 po qod x 5 doses LEVAQUIN 750 MG TABS 917751 LEVOFLOXACIN Inactive GLYBURIDE 5 MG TAB Take one by mouth daily GLYBURIDE 5 MG TAB 028629 GLYBURIDE Inactive PREDNISONE 5 MG TAB Take one po qod PREDNISONE 5 MG TAB 843563 PREDNISONE Inactive PREDNISONE 20 MG TAB 2 tabs daily for 5 days, then 1 daily for 5 days PREDNISONE 20 MG TAB 423292 PREDNISONE Inactive FLONASE 50 MCG/ACT SUSP 2 puffs in each nostril daily FLONASE 50 MCG/ACT SUSP FLUTICASONE PROPIONATE Inactive SYMBICORT 160-4.5 MCG/ACT AERO 2 puff BID SYMBICORT 160-4.5 MCG/ACT AERO BUDESONIDE-FORMOTEROL FUMARATE Inactive PREDNISONE 5 MG TABS 1 po qod PREDNISONE 5 MG TABS 904704 PREDNISONE Inactive PREDNISONE 20 MG TAB 1 tablet daily for airway inflammation 02/25 PREDNISONE 20 MG TAB 510907 PREDNISONE Inactive SULFASALAZINE 500 MG ORAL TBEC 2 tabs BID SULFASALAZINE 500 MG ORAL TBEC 304584 SULFASALAZINE Inactive LASIX 20 MG TAB 1 tablet by mouth daily x 2 days LASIX 20 MG TAB 386055 FUROSEMIDE Inactive AMOXICILLIN 500 MG CAPS 2 po BID x 10 days AMOXICILLIN 500 MG CAPS 258395 AMOXICILLIN Inactive GLYBURIDE 5 MG TAB Take one by mouth daily GLYBURIDE 5 MG TAB 667486 GLYBURIDE Inactive AZITHROMYCIN 250 MG TABS 2 po qd x 1 day, then 1 po qd x 4 days AZITHROMYCIN 250 MG TABS 4092690 AZITHROMYCIN Inactive PREDNISONE 20 MG TAB 2 tabs daily for 3 days, 1 tab daily for 3 days, 1/2 tab daily for 2 days PREDNISONE 20 MG TAB 143826 PREDNISONE Inactive PREDNISONE 20 MG TAB 2 tabs daily for 5 days, then 1 daily for 5 days, then 0.5 for 4 days PREDNISONE 20 MG TAB 127647 PREDNISONE Inactive AZITHROMYCIN 250 MG TABS 2 po qd x 1 day, then 1 po qd x 4 days AZITHROMYCIN 250 MG TABS 5925563 AZITHROMYCIN Inactive PREDNISONE 20 MG TAB 2 tabs daily for 3 days, 1 tab daily for 3 days, 1/2 tab daily for 2 days PREDNISONE 20 MG TAB 107133 PREDNISONE Inactive Immunizations Vaccine Administration Date Value [...] Description Lab Report: CBC W/DIFF - Hematology hemoglobin, blood 12.9 g/dL 13.5-17.5 platelet count 248 10^3/MM^3 10*3/mm3 037-134 3667/09/18 leukocyte count, blood 11.1 10^3/MM^3 10*3/mm3 4.6-10.2 neutrophils as percent of blood leukocytes 75.7 % 42.2-75.2 monocytes as percent of blood leukocytes 7.2 % 1.7-9.3 lymphocytes as percent of blood leukocytes 13.3 % 20.5-51.1 erythrocyte (RBC) count 4.25 10^6/MM^3 10*6/mm3 4.69-6.13 hematocrit, blood 39.6 % 41.0-53.0 mean corpuscular volume, RBC 93 fL 80-97 mean corpuscular hemoglobin, RBC 30.3 pg 27.0-31.2 mean corpuscular hemoglobin concentration, RBC 32.5 G/DL % 31.8- 35.4 red blood cell distribution width 14.8 % 11.6-14.8 Lab Report: CBC W/DIFF, Comp. Metabolic Panel - Chemistry sodium, serum 132 mmol/L 958-086 4449/10/26 carbon dioxide, venous blood 22.8 mmol/L 21.0-32.0 potassium, serum 5.4 mmol/L 3.5-5.2 chloride, serum 98 mmol/L 98-107 blood glucose 424 mg/dL 65-110 urea nitrogen, blood 40 mg/dL 7-18 creatinine, serum 2.26 mg/dL 0.55-1.30 alanine aminotransferase (SGPT), serum 29 U/L 12-78 aspartate aminotransferase (SGOT), serum 24 U/L 15-37 calcium, serum 8.6 mg/dL 8.5-10.1 bilirubin, serum, total 0.60 mg/dL 0.00-1.00 sodium, serum 137 mmol/L 350-754 2483/06/06 carbon dioxide, venous blood 24.9 mmol/L 21.0-32.0 [...] % 11.6-14.8 platelet count 210 10^3/MM^3 10*3/mm3 200-428 7424/10/26 monocytes as percent of blood leukocytes 5.6 % 1.7-9.3 lymphocytes as percent of blood leukocytes 11.8 % 20.5-51.1 erythrocyte (RBC) count 4.11 10^6/MM^3 10*6/mm3 4.69-6.13 hemoglobin, blood 12.4 g/dL 13.5-17.5 leukocyte count, blood 10.3 10^3/MM^3 10*3/mm3 4.6-10.2 hematocrit, blood 37.7 % 41.0-53.0 mean corpuscular volume, RBC 92 fL 80-97 mean corpuscular hemoglobin, RBC 30.2 pg 27.0-31.2 mean corpuscular hemoglobin concentration, RBC 33.0 G/DL % 31.8- 35.4 red blood cell distribution width 14.4 % 11.6-14.8 neutrophils as percent of blood leukocytes 80.0 % 42.2-75.2 platelet count 274 10^3/MM^3 10*3/mm3 142-424 Lab Report: CBC, Comp. Metabolic Panel - Chemistry sodium, serum 139 mmol/L 650-737 2040/03/17 carbon dioxide, venous blood 29.0 mmol/L 21.0-32.0 [...] Rate - Chemistry sodium, serum 136 mmol/L 194-065 8138/09/18 carbon dioxide, venous blood 24.3 mmol/L 21.0-32.0 potassium, serum 5.1 mmol/L 3.5-5.2 chloride, serum 104 mmol/L 98-107 blood glucose 331 mg/dL 65-110 urea nitrogen, blood 43 mg/dL 7-18 creatinine, serum 2.57 mg/dL 0.55-1.30 alanine aminotransferase (SGPT), serum 27 U/L 12-78 aspartate aminotransferase (SGOT), serum 18 U/L 15-37 calcium, serum 8.4 mg/dL 8.5-10.1 Lab Report: Comp. Metabolic Panel, HGBA1C - Chemistry bilirubin, serum, total 0.80 mg/dL 0.00-1.00 hemoglobin A1C, blood, as % of total hemoglobin 6.9 % 4.3-6.0 blood glucose 199 mg/dL 65-110 carbon dioxide, venous blood 25.6 mmol/L 21.0-32.0 chloride, serum 105 mmol/L 98-107 potassium, serum 5.4 mmol/L 3.5-5.2 sodium, serum 139 mmol/L 016-508 7070/07/09 calcium, serum 8.2 mg/dL 8.5-10.1 aspartate aminotransferase (SGOT), serum 12 U/L 15-37 alanine aminotransferase (SGPT), serum 22 U/L 12-78 creatinine, serum 2.40 mg/dL 0.60-1.30 urea nitrogen, blood 47 mg/dL 7-18 Lab Report: HGBA1C - Chemistry hemoglobin A1C, blood, as % of total hemoglobin 7.7 % 4.3-6.0 Lab Report: HGBA1C, Basic Metabolic Panel - Chemistry blood glucose 261 mg/dL 65-110 calcium, serum 9.0 mg/dL 8.5-10.1 urea nitrogen, blood 44 mg/dL 7-18 creatinine, serum 2.37 mg/dL 0.55-1.30 sodium, serum 137 mmol/L 447-034 8871/02/12 potassium, serum 5.1 mmol/L 3.5-5.2 chloride, serum 103 mmol/L 98-107 carbon dioxide, venous blood 24.4 mmol/L 21.0-32.0 hemoglobin A1C, blood, as % of total hemoglobin 8.5 % 4.3-6.0 Lab Report: Lipid Panel - Chemistry cholesterol, serum 139 mg/dL 493-522 9470/09/10 triglyceride, serum, fasting 176 mg/dL 30-200 HDL cholesterol, serum 45 mg/dL 32-96 LDL cholesterol, serum 59 mg/dL 0-130 Lab Report: MICROALBUMIN - Chemistry albumin/creatinine ratio, urine 30 - 300 mg/g mg/g{creat} 0-29 Lab Report: MICROALBUMIN - Lab microalbumin, urine 30 0-19 Lab Report: Uric Acid - Chemistry uric acid, serum 6.3 mg/dL 2.6-7.2 Encounters Code Encounter Date Provider Facility CPT-39316 Level 3 Est. Patient 09:18:25 CDT Simon Castillo MD [facility] CPT-73618 Level 4 Est. Patient 11:51:23 CDT Simon Castillo MD [facility] CPT-30098 Level 4 Est. Patient 14:32:04 CDT Neto Oshea DO [facility] CPT-68400 Level 3 Est. Patient 08:41:43 CDT Giles Tatum Formerly named [facility] CPT-82896 Level 3 Est. Patient 08:40:53 CDT Jonathanllina Nashzell Formerly named [facility] CPT-84600 Level 3 Est. Patient 08:36:52 CDT Jillina Nashzell Formerly named [facility] CPT-91481 Level 3 Est. Patient 09:08:44 CDT Jiviraina Lolyl Formerly named [facility] CPT-59581 Level 4 Est. Patient 09:17:32 MANAGER OF TRAINING Simon Castillo MD [facility] CPT-04910 Level 3 Est. Patient 11:22:22 MANAGER OF TRAINING Simon Castillo MD [facility] CPT-54482 Level 3 Est. Patient 09:02:14 CDT Simon Castillo MD [facility] CPT-18940 Level 4 Est. Patient 08:47:25 CDT Simon Castillo MD [facility] CPT-86058 Level 4 Est. Patient 10:17:25 CDT Simon Castillo MD [facility] CPT-13605 Level 4 Est. Patient 10:10:09 MANAGER OF TRAINING Simon Castillo MD [facility] CPT-85966 Level 4 Est. Patient 11:48:19 CDT Simon Castillo MD [facility] CPT-49009 Level 4 Est. Patient 08:59:29 CDT Simon Castillo MD [facility] CPT-46414 Level 4 Est. Patient 10:52:51 MANAGER OF TRAINING Simon Castillo MD [facility] CPT-26366 Level 4 Est. Patient 11:50:30 CDT Simon Castillo MD [facility] CPT-52680 Level 4 Est. Patient 09:54:46 CDT Simon Castillo MD [facility] CPT-50827 Level 3 Est. Patient 11:10:14 CDT Simon Castillo MD [facility] CPT-12077 Level 4 Est. Patient 09:44:02 CDT Simon Castillo MD [facility] CPT-51046 Level 3 Est. Patient 09:27:48 CDT Simon Castillo MD [facility] CPT-01838 Level 3 Est. Patient 09:58:06 MANAGER OF TRAINING Simon Castillo MD [facility] CPT-00758 Level 3 Est. Patient 09:51:35 CDT Simon Castillo MD [facility] Procedures Code Procedure Name Date Entry Date Standard Description CPT-G0438 Initial Annual Wellness Exam 08:57:30 CDT CPT-13074 Chest 2V Frontal and Lat - XRAY USE ONLY 09:00:14 CDT CPT-99722 Venipuncture Draw Fee 13:33:02 CDT CPT-71966 Bone Density 09:37:49 MANAGER OF TRAINING CPT-07911 Fluzone High Dose 17:20:42 CDT CPT-39857 Prevnar 13 17:20:42 CDT CPT-07250 Administration 2+ single or combination vaccines inc oral 17:20:42 CDT CPT-22189 Administration single or combination vaccine inc oral 17 :20:42 CDT CPT-16990 Hand comp min 3V 09:24:38 CDT CPT-19203 Venipuncture Draw Fee 08:07:29 MANAGER OF TRAINING CPT-67179 Venipuncture Draw Fee 09:02:51 MANAGER OF TRAINING CPT-82317 Venipuncture Draw Fee 12:45:08 MANAGER OF TRAINING CPT-90005 Venipuncture Draw Fee 09:25:31 CDT CPT-G0008 Administration of Influenza Virus Vaccine 14:41:29 CDT CPT-06585 Fluzone High-Dose Intramuscular Suspension 14:41:29 CDT CPT-Cryo Cryotherapy 11:48:20 CDT CPT-01359 EKG Trac and Interp 09:21:58 CDT CPT-26028 Chest 2V Frontal and Lat 09:21:58 CDT CPT-Cryo Cryotherapy 10:54:51 MANAGER OF TRAINING CPT-28027 Administration 2+ single or combination vaccines inc oral 10:42:19 CDT CPT-84313 Administration single or combination vaccine inc oral 10 :42:19 CDT CPT-89664 Pneumovax 10:42:19 CDT CPT-09881 Influenza High Dose age 65+ 10:42:19 CDT CPT-07888 Administration single or combination vaccine inc oral 13 :18:54 CDT CPT-16045 Influenza High Dose age 65+ 13:18:54 CDT CPT-42687 Venipuncture Draw Fee 11:53:16 CDT CPT-99226 LS spine comp w obliq 11:03:13 CDT CPT-Cryo Cryotherapy 08:27:16 MANAGER OF TRAINING CPT-04241 Administration single or combination vaccine inc oral 10 :56:34 CDT CPT-24230 Influenza High Dose age 65+ 10:56:34 CDT
--- OUTSIDE RECORDS SUMMARY | 2018-03-31 17:05 | XMS REPORT | Clinical Summary ---
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 Kerry Castillo MD Pharyngitis ICD-462 Keryr Castillo MD Dyspnea ICD-786.09 Kerry Castillo MD [...] Instructions Start Date Stop Date Generic Name [facility] Status Provider Patient Instruction VIAGRA 100 MG ORAL TABLET 0.5 to 1 po qd PRN Erectile dysfunction SILDENAFIL CITRATE 15889264287 Active Simon Castillo MD Active LUTEIN-ZEAXANTHIN 6-1 MG ORAL TABLET 2 po qd LUTEIN- ZEAXANTHIN 55914976112 Active Simon Castillo MD Active BILBERRY CAPSULE 1 po qd BILBERRY (VACCINIUM MYRTILLUS) CAPS 90061264203 Active Simon Castillo MD Active TRAMADOL HCL 50 MG ORAL TABLET 1-2 tablets every 6 hours as needed for pain TRAMADOL HCL 06751914533 No Longer Active Simon Castillo MD Active HYDROCODONE-ACETAMINOPHEN 5-325 MG ORAL TABLET 1 tab by mouth 8 hours as needed for pain HYDROCODONE-ACETAMINOPHEN 32069305483 No Longer Active Simon Castillo MD Active BUMETANIDE 0.5 MG ORAL TABLET 1 po qd BUMETANIDE 07143150945 Active Simon Castillo MD Active AUGMENTIN 875-125 MG ORAL TABLET 1 po BID x 10 days AMOXICILLIN-POT CLAVULANATE 69430649943 No Longer Active Simon Castillo MD Active PIOGLITAZONE HCL 30 MG ORAL TABLET 1 po qd PIOGLITAZONE HCL 94421363074 Active Simon Castillo MD Active GLIMEPIRIDE 4 MG ORAL TABLET 1 po BID GLIMEPIRIDE 98041721263 Active Simon Castillo MD Active ASPIRIN EC 81 MG ORAL TABLET DELAYED RELEASE 1 po qd ASPIRIN 01042988223 Active Simon Castillo MD Active CLOTRIMAZOLE 1 % EXTERNAL CREAM Apply to affected area of feet twice daily PRN Rash CLOTRIMAZOLE 12884231553 No Longer Active Simon Castillo MD Active PREDNISONE 5 MG ORAL TABLET 1 po BID PREDNISONE 57387675374 Active Dolly MCDERMOTT Active FISH OIL 1000 MG ORAL CAPSULE DELAYED RELEASE 1 po BID OMEGA- 3 FATTY ACIDS 07681227302 Active Simon Castillo MD Active LISINOPRIL 10 MG ORAL TABLET 1 p qd LISINOPRIL 96168443249 Active Simon Castillo MD Active CLARITIN 10 MG ORAL TABLET 1 tablet by mouth daily as needed for allergies LORATADINE 29823631420 No Longer Active Simon Castillo MD Active TRIAMCINOLONE ACETONIDE 0.1 % EXTERNAL OINTMENT Apply to affected areas TID for up to 2 weeks TRIAMCINOLONE ACETONIDE 28055318676 No Longer Active Simon Castillo MD Active LASIX 20 MG ORAL TABLET 1 tablet by mouth daily x 2 days FUROSEMIDE 55495108477 No Longer Active Simon Castillo MD Active SULFASALAZINE 500 MG ORAL TABLET DELAYED RELEASE 2 tabs BID 02/26 SULFASALAZINE 03628119116 No Longer Active Neto Oshea DO Active PREDNISONE 20 MG ORAL TABLET 2 tabs daily for 3 days, 1 tab daily for 3 days, 1/2 tab daily for 2 days PREDNISONE 67781328122 No Longer Active Jillina Fratico HEMPHILL Active PREDNISONE 20 MG ORAL TABLET 1 tablet daily for airway inflammation PREDNISONE 52246198125 No Longer Active Jillina Fraamayal PATIENT RESOURCE SPECIALIST Active AZITHROMYCIN 250 MG ORAL TABLET 2 po qd x 1 day, then 1 po qd x 4 days 01/28 AZITHROMYCIN 60206058127 No Longer Active Jillina Fraamayal PATIENT RESOURCE SPECIALIST Active TRAMADOL HCL 50 MG ORAL TABLET 1 po q6hr PRN Pain TRAMADOL HCL 30433820727 No Longer Active Simon Castillo MD Active PREDNISONE 5 MG ORAL TABLET 1 po qod PREDNISONE 04651934592 No Longer Active Simon Castillo MD Active SYMBICORT 160-4.5 MCG/ACT INHALATION AEROSOL 2 puff BID BUDESONIDE-FORMOTEROL FUMARATE 66620138829 No Longer Active Simon Castillo MD Active FLONASE 50 MCG/ACT NASAL SUSPENSION 2 puffs in each nostril daily FLUTICASONE PROPIONATE 52384801248 No Longer Active Simon Castillo MD Active PREDNISONE 20 MG ORAL TABLET 2 tabs daily for 5 days, then 1 daily for 5 days PREDNISONE 21542610047 No Longer Active Simon Castillo MD Active PREDNISONE 20 MG ORAL TABLET 2 tabs daily for 5 days, then 1 daily for 5 days , then 0.5 for 4 days PREDNISONE 56443514034 No Longer Active Simon Castillo MD Active PREDNISONE 20 MG ORAL TABLET 2 tabs daily for 3 days, 1 tab daily for 3 days, 1/2 tab daily for 2 days PREDNISONE 79819138978 No Longer Active Simon Castillo MD Active AZITHROMYCIN 250 MG ORAL TABLET 2 po qd x 1 day, then 1 po qd x 4 days 03/16 AZITHROMYCIN 03095853268 No Longer Active Simon Castillo MD Active CARVEDILOL 6.25 MG ORAL TABLET 1 po BID CARVEDILOL 84337454470 Active Simon Castillo MD Active LISINOPRIL-HYDROCHLOROTHIAZIDE 20-12.5 MG ORAL TABLET 1/2 tab by mouth daily LISINOPRIL-HYDROCHLOROTHIAZIDE 59382389613 No Longer Active Simon Castillo MD Active PREDNISONE 5 MG ORAL TABLET Take one po qod PREDNISONE 84719915408 No Longer Active Simon Castillo MD Active GLYBURIDE 5 MG ORAL TABLET Take one by mouth daily GLYBURIDE 39667386276 No Longer Active Simon Castillo MD Active LEVAQUIN 750 MG ORAL TABLET 1 po qod x 5 doses LEVOFLOXACIN 80515375639 No Longer Active Simon Castillo MD Active CETIRIZINE HCL 10 MG ORAL TABLET 1 po qd as needed for allergies CETIRIZINE HCL 24565326215 No Longer Active Simon Castillo MD Active ATENOLOL 50 MG ORAL TABLET Take one by mouth daily ATENOLOL 54620234722 No Longer Active Simon Castillo MD Active FLONASE 50 MCG/ACT NASAL SUSPENSION 2 puffs in each nostril daily FLUTICASONE PROPIONATE 96229121395 No Longer Active Simon Castillo MD Active GLYBURIDE 5 MG ORAL TABLET Take one by mouth daily GLYBURIDE 05228950502 No Longer Active Simon Castillo MD Active SYMBICORT 80-4.5 MCG/ACT INHALATION AEROSOL 2 puffs twice a day BUDESONIDE-FORMOTEROL FUMARATE 71336586867 No Longer Active Simon Castillo MD Active PREDNISONE 20 MG ORAL TABLET 2 tabs daily for 4 days, 1 tab daily for 4 days, 1/2 tab daily for 4 days PREDNISONE 37608482034 No Longer Active Simon Castillo MD Active AMOXICILLIN 500 MG ORAL CAPSULE 2 po BID x 10 days AMOXICILLIN 43199789999 No Longer Active Simon Castillo MD Active METFORMIN HCL 1000 MG ORAL TABLET 1 by mounth twice a day METFORMIN HCL 68178074210 No Longer Active Simon Castillo MD Active IBUPROFEN 800 MG ORAL TABLET Take 1 tab every 6 hrs prn IBUPROFEN 63743255161 No Longer Active Simon Castillo MD Active GLYBURIDE 2.5 MG ORAL TABLET Take one by mouth daily GLYBURIDE 59072561970 No Longer Active Simon Castillo MD Active LANCETS 2 qd LANCETS 66345129753 Active Pamela Conde Active ACACIA CONTOUR TEST IN VITRO STRIP Use with testing twice daily GLUCOSE BLOOD 66331876193 Active Simon Castillo MD Active GLYBURIDE 2.5 MG ORAL TABLET Take one by mouth daily GLYBURIDE 2.5 MG ORAL TABLET 062849 GLYBURIDE Inactive PREDNISONE 20 MG ORAL TABLET 2 tabs daily for 4 days, 1 tab daily for 4 days, 1/2 tab daily for 4 days PREDNISONE 20 MG ORAL TABLET 774985 PREDNISONE Inactive SYMBICORT 80-4.5 MCG/ACT INHALATION AEROSOL 2 puffs twice a day SYMBICORT 80-4.5 MCG/ACT INHALATION AEROSOL BUDESONIDE- FORMOTEROL FUMARATE Inactive FLONASE 50 MCG/ACT NASAL SUSPENSION 2 puffs in each nostril daily FLONASE 50 MCG/ACT NASAL SUSPENSION 9145062 FLUTICASONE PROPIONATE Inactive ATENOLOL 50 MG ORAL TABLET Take one by mouth daily ATENOLOL 50 MG ORAL TABLET 285542 ATENOLOL Inactive CETIRIZINE HCL 10 MG ORAL TABLET 1 po qd as needed for allergies CETIRIZINE HCL 10 MG ORAL TABLET 1568796 CETIRIZINE HCL Inactive LEVAQUIN 750 MG ORAL TABLET 1 po qod x 5 doses LEVAQUIN 750 MG ORAL TABLET 516375 LEVOFLOXACIN Inactive GLYBURIDE 5 MG ORAL TABLET Take one by mouth daily GLYBURIDE 5 MG ORAL TABLET 632653 GLYBURIDE Inactive PREDNISONE 5 MG ORAL TABLET Take one po qod PREDNISONE 5 MG ORAL TABLET 276700 PREDNISONE Inactive PREDNISONE 20 MG ORAL TABLET 2 tabs daily for 5 days, then 1 daily for 5 days PREDNISONE 20 MG ORAL TABLET 752775 PREDNISONE Inactive FLONASE 50 MCG/ACT NASAL SUSPENSION 2 puffs in each nostril daily FLONASE 50 MCG/ACT NASAL SUSPENSION 2089366 FLUTICASONE PROPIONATE Inactive SYMBICORT 160-4.5 MCG/ACT INHALATION AEROSOL 2 puff BID SYMBICORT 160-4.5 MCG/ACT INHALATION AEROSOL BUDESONIDE-FORMOTEROL FUMARATE Inactive PREDNISONE 5 MG ORAL TABLET 1 po qod PREDNISONE 5 MG ORAL TABLET 127022 PREDNISONE Inactive PREDNISONE 20 MG ORAL TABLET 1 tablet daily for airway inflammation PREDNISONE 20 MG ORAL TABLET 789491 PREDNISONE Inactive SULFASALAZINE 500 MG ORAL TABLET DELAYED RELEASE 2 tabs BID 02/26 SULFASALAZINE 500 MG ORAL TABLET DELAYED RELEASE 865481 SULFASALAZINE Inactive LASIX 20 MG ORAL TABLET 1 tablet by mouth daily x 2 days 2016/06/ 10 LASIX 20 MG ORAL TABLET 319411 FUROSEMIDE Inactive CLARITIN 10 MG ORAL TABLET 1 tablet by mouth daily as needed for allergies CLARITIN 10 MG ORAL TABLET 642751 LORATADINE Inactive CLOTRIMAZOLE 1 % EXTERNAL CREAM Apply to affected area of feet twice daily PRN Rash CLOTRIMAZOLE 1 % EXTERNAL CREAM 013783 CLOTRIMAZOLE Inactive HYDROCODONE-ACETAMINOPHEN 5-325 MG ORAL TABLET 1 tab by mouth 8 hours as needed for pain HYDROCODONE-ACETAMINOPHEN 5-325 MG ORAL TABLET 638854 HYDROCODONE-ACETAMINOPHEN Inactive TRAMADOL HCL 50 MG ORAL TABLET 1-2 tablets every 6 hours as needed for pain TRAMADOL HCL 50 MG ORAL TABLET 649190 TRAMADOL HCL Inactive AMOXICILLIN 500 MG ORAL CAPSULE 2 po BID x 10 days AMOXICILLIN 500 MG ORAL CAPSULE 706285 AMOXICILLIN Inactive GLYBURIDE 5 MG ORAL TABLET Take one by mouth daily GLYBURIDE 5 MG ORAL TABLET 493440 GLYBURIDE Inactive AZITHROMYCIN 250 MG ORAL TABLET 2 po qd x 1 day, then 1 po qd x 4 days 03/16 AZITHROMYCIN 250 MG ORAL TABLET 444186 AZITHROMYCIN Inactive PREDNISONE 20 MG ORAL TABLET 2 tabs daily for 3 days, 1 tab daily for 3 days, 1/2 tab daily for 2 days PREDNISONE 20 MG ORAL TABLET 285454 PREDNISONE Inactive PREDNISONE 20 MG ORAL TABLET 2 tabs daily for 5 days, then 1 daily for 5 days , then 0.5 for 4 days PREDNISONE 20 MG ORAL TABLET 526502 PREDNISONE Inactive AZITHROMYCIN 250 MG ORAL TABLET 2 po qd x 1 day, then 1 po qd x 4 days 01/28 AZITHROMYCIN 250 MG ORAL TABLET 918028 AZITHROMYCIN Inactive PREDNISONE 20 MG ORAL TABLET 2 tabs daily for 3 days, 1 tab daily for 3 days, 1/2 tab daily for 2 days PREDNISONE 20 MG ORAL TABLET 057769 PREDNISONE Inactive TRIAMCINOLONE ACETONIDE 0.1 % EXTERNAL OINTMENT Apply to affected areas TID for up to 2 weeks TRIAMCINOLONE ACETONIDE 0.1 % EXTERNAL OINTMENT 9253878 TRIAMCINOLONE ACETONIDE Inactive AUGMENTIN 875-125 MG ORAL TABLET 1 po BID x 10 days AUGMENTIN 875-125 MG ORAL TABLET 913894 AMOXICILLIN-POT CLAVULANATE Inactive Immunizations Vaccine Administration Date [...] Peptide - Chemistry sodium, serum 142 mmol/L 449-735 9092/07/18 potassium, serum 5.0 mmol/L 3.5-5.2 chloride, serum [...] Rate - Chemistry sodium, serum 142 mmol/L 912-475 2736/02/27 carbon dioxide, venous blood 26.2 mmol/L 21.0-32.0 [...] Panel - Chemistry sodium, serum 140 mmol/L 066-132 6123/07/13 carbon dioxide, venous blood 23.7 mmol/L 21.0-32.0 [...] dipstick Negative Negative sodium, serum 142 mmol/L 258-268 8190/01/08 carbon dioxide, venous blood 23.9 mmol/L 21.0-32.0 [...] Negative;Positive Encounters Code Encounter Date Provider Facility CPT-50183 Level 4 Est. Patient 14:06:23 AIRPLANE MECHANIC APPRENTICE Simon Castillo MD [facility] CPT-33487 Level 3 Est. Patient 12:04:38 AIRPLANE MECHANIC APPRENTICE Glies Tatum [facility] CPT-25504 Level 3 Est. Patient 11:57:09 AIRPLANE MECHANIC APPRENTICE Giles Tatum [facility] CPT-03480 Level 3 Est. Patient 11:48:57 AIRPLANE MECHANIC APPRENTICE Giles Tatum [facility] CPT-26642 Level 4 Est. Patient 09:54:36 CDT Simon Castillo MD [facility] CPT-13799 Level 4 Est. Patient 08:48:38 CDT Simon Castillo MD [facility] CPT-21984 Level 4 Est. Patient 09:54:08 CDT Simon Castillo MD [facility] CPT-61765 Level 4 Est. Patient 16:11:23 CDT Simon Castillo MD [facility] CPT-14662 Level 4 Est. Patient 09:29:28 AIRPLANE MECHANIC APPRENTICE Simon Castillo MD [facility] CPT-85970 Level 3 Est. Patient 09:18:25 CDT Simon Castillo MD [facility] CPT-88626 Level 4 Est. Patient 11:51:23 CDT Simon Castillo MD [facility] CPT-12561 Level 4 Est. Patient 14:32:04 CDT Neto sOhea DO [facility] CPT-35347 Level 3 Est. Patient 08:41:43 CDT Giles Tatum [facility] CPT-88727 Level 3 Est. Patient 08:40:53 CDT Jonathanviratriston Salcidoalejandrina [facility] CPT-23139 Level 3 Est. Patient 08:36:52 CDT Jonathanviratriston Caotico [facility] CPT-19862 Level 3 Est. Patient 09:08:44 CDT Jonathanmeli Nashtico [facility] CPT-05291 Level 4 Est. Patient 09:17:32 AIRPLANE MECHANIC APPRENTICE Simon Castillo MD [facility] CPT-63582 Level 3 Est. Patient 11:22:22 AIRPLANE MECHANIC APPRENTICE Simon Castillo MD [facility] CPT-55371 Level 3 Est. Patient 09:02:14 CDT Simon Castillo MD [facility] CPT-26064 Level 4 Est. Patient 08:47:25 CDT Simon Castillo MD [facility] CPT-52834 Level 4 Est. Patient 10:17:25 CDT Simon Castillo MD [facility] CPT-46770 Level 4 Est. Patient 10:10:09 AIRPLANE MECHANIC APPRENTICE Simon Castillo MD [facility] CPT-52436 Level 4 Est. Patient 11:48:19 CDT Simon Castillo MD [facility] CPT-19434 Level 4 Est. Patient 08:59:29 CDT Simon Castillo MD [facility] CPT-66741 Level 4 Est. Patient 10:52:51 AIRPLANE MECHANIC APPRENTICE Simon Castillo MD [facility] CPT-32896 Level 4 Est. Patient 11:50:30 CDT Simon Castillo MD [facility] CPT-30132 Level 4 Est. Patient 09:54:46 CDT Simon Castillo MD [facility] CPT-62911 Level 3 Est. Patient 11:10:14 CDT Simon Castillo MD [facility] CPT-91485 Level 4 Est. Patient 09:44:02 CDT Simon Castillo MD [facility] CPT-27941 Level 3 Est. Patient 09:27:48 CDT Simon Castillo MD [facility] CPT-03978 Level 3 Est. Patient 09:58:06 AIRPLANE MECHANIC APPRENTICE Simon Castillo MD [facility] CPT-30738 Level 3 Est. Patient 09:51:35 CDT Simon Castillo MD [facility] Procedures Code Procedure Name Date Entry Date Standard Description CPT-92288 EKG Trac and Interp - XRAY USE ONLY 12:19:18 AIRPLANE MECHANIC APPRENTICE 09/29 CPT-88489 Chest, 2 views 12:19:17 AIRPLANE MECHANIC APPRENTICE CPT-Cryo Cryotherapy 09:54:37 CDT CPT-20375 First Vx - Ix admin for Medicare patients 09:13:10 CDT CPT-64189 Fluzone High-Dose Intramuscular Suspension 09:13:10 CDT CPT-G0439 Subsequent Annual Wellness Exam 09:41:17 CDT CPT-21776 Lipid - LAB USE ONLY 17:15:33 CDT CPT-51250 HGBA1C - LAB USE ONLY 17:15:33 CDT CPT-24427 CMP - LAB USE ONLY 17:15:33 CDT CPT-64295 Venipuncture Draw Fee 17:15:33 CDT CPT-TCMH Transitional Care Mgmt-High 11:01:28 AIRPLANE MECHANIC APPRENTICE CPT-05774 First Vx - Ix admin for Medicare patients 17:33:39 CDT CPT-20343 Fluzone High-Dose Intramuscular Suspension 17:33:39 CDT CPT-G0438 Initial Annual Wellness Exam 08:57:30 CDT CPT-78718 Chest 2V Frontal and Lat - XRAY USE ONLY 09:00:14 CDT CPT-88161 Venipuncture Draw Fee 13:33:02 CDT CPT-52475 Bone Density 09:37:49 AIRPLANE MECHANIC APPRENTICE CPT-69463 Fluzone High Dose 17:20:42 CDT CPT-45429 Prevnar 13 17:20:42 CDT CPT-06491 Administration 2+ single or combination vaccines inc oral 17:20:42 CDT CPT-93853 Administration single or combination vaccine inc oral 17 :20:42 CDT CPT-89197 Hand comp min 3V 09:24:38 CDT CPT-35375 Venipuncture Draw Fee 08:07:29 AIRPLANE MECHANIC APPRENTICE CPT-04021 Venipuncture Draw Fee 09:02:51 AIRPLANE MECHANIC APPRENTICE CPT-59017 Venipuncture Draw Fee 12:45:08 AIRPLANE MECHANIC APPRENTICE CPT-52684 Venipuncture Draw Fee 09:25:31 CDT CPT-G0008 Administration of Influenza Virus Vaccine 14:41:29 CDT CPT-66839 Fluzone High-Dose Intramuscular Suspension 14:41:29 CDT CPT-Cryo Cryotherapy 11:48:20 CDT CPT-01473 EKG Trac and Interp 09:21:58 CDT CPT-42770 Chest 2V Frontal and Lat 09:21:58 CDT CPT-Cryo Cryotherapy 10:54:51 AIRPLANE MECHANIC APPRENTICE CPT-64897 Administration 2+ single or combination vaccines inc oral 10:42:19 CDT CPT-41988 Administration single or combination vaccine inc oral 10 :42:19 CDT CPT-94324 Pneumovax 10:42:19 CDT CPT-14921 Influenza High Dose age 65+ 10:42:19 CDT CPT-12953 Administration single or combination vaccine inc oral 13 :18:54 CDT CPT-51613 Influenza High Dose age 65+ 13:18:54 CDT CPT-19489 Venipuncture Draw Fee 11:53:16 CDT CPT-03922 LS spine comp w obliq 11:03:13 CDT CPT-Cryo Cryotherapy 08:27:16 AIRPLANE MECHANIC APPRENTICE CPT-40639 Administration single or combination vaccine inc oral 10 :56:34 CDT CPT-50456 Influenza High Dose age 65+ 10:56:34 CDT
--- OUTSIDE RECORDS SUMMARY | 2018-03-31 17:06 | XMS REPORT | Clinical Summary ---
Author Author Admin, RAFFI Organization [facility] Address Unknown Phone Unavailable Allergies, Adverse Reactions, Alerts Allergy Name Reaction Description Start Date Severity Status Provider No Known Allergies [facility] Conditions or Problems Problem Name Problem [...] Castillo MD Rheumatoid arthritis Steroid use, manager intermediate V58.65 Active Megha Mckeon Long-term (current) use of steroids Hand pain, bilateral 729.5 Active Simon Castillo MD Pain in limb DIABETES ICD-V18.0 Inactive Simon Castillo MD FH [...] Simon Castillo MD 2013 Chest pain ICD-786.50 Kerry Castillo MD Tinea pedis ICD-110.4 Kerry Castillo MD Hand pain, bilateral ICD-729.5 Kerry Castillo MD Medication List Medication Instructions Start Date Stop Date Generic Name NDC Status Provider Patient Instruction HYDROCODONE-ACETAMINOPHEN 5-325 MG TABS 1 tab by mouth 8 hours as needed for pain HYDROCODONE-ACETAMINOPHEN 36066313370 Active Simon Castillo MD Active TRAMADOL HCL 50 MG TABS 1 po q6hr PRN Pain TRAMADOL HCL 81907314915 No Longer Active Simon Castillo MD Active PREDNISONE 5 MG TAB 1-2 tabs daily for rheumatoid arthritis PREDNISONE 31844977758 Active Simon Castillo MD Active PREDNISONE 5 MG TABS 1 po qod PREDNISONE 37584450295 No Longer Active Simon Castillo MD Active SYMBICORT 160-4.5 MCG/ACT AERO 2 puff BID BUDESONIDE- FORMOTEROL FUMARATE 28075141630 No Longer Active Simon Castillo MD Active FLONASE 50 MCG/ACT SUSP 2 puffs in each nostril daily FLUTICASONE PROPIONATE 78505114124 No Longer Active Simon Castillo MD Active PREDNISONE 20 MG TAB 2 tabs daily for 5 days, then 1 daily for 5 days PREDNISONE 80054705937 No Longer Active Simon Castillo MD Active PREDNISONE 20 MG TAB 2 tabs daily for 5 days, then 1 daily for 5 days, then 0.5 for 4 days PREDNISONE 85486487880 No Longer Active Simon Castillo MD Active CLOTRIMAZOLE 1 % EXT CREA Apply to affected area of feet twice daily PRN Rash CLOTRIMAZOLE 11397649271 Active Simon Castillo MD Active PREDNISONE 20 MG TAB 2 tabs daily for 3 days, 1 tab daily for 3 days, 1/2 tab daily for 2 days PREDNISONE 19796730784 No Longer Active Simon Castillo MD Active AZITHROMYCIN 250 MG TABS 2 po qd x 1 day, then 1 po qd x 4 days AZITHROMYCIN 08867908884 No Longer Active Simon Castillo MD Active LISINOPRIL 10 MG TABS 1 tablet by mouth daily LISINOPRIL 76399159248 Active Simon Castillo MD Active GLIMEPIRIDE 1 MG TABS 1 po q a.m. GLIMEPIRIDE 52726287011 Active Simon Castillo MD Active CARVEDILOL 6.25 MG TABS 1 po BID CARVEDILOL 06826544685 Active Simon Castillo MD Active LISINOPRIL-HYDROCHLOROTHIAZIDE 20-12.5 MG TABS 1/2 tab by mouth daily LISINOPRIL-HYDROCHLOROTHIAZIDE 56008512040 No Longer Active Simon Castillo MD Active TRAMADOL HCL 50 MG TABS 1-2 tablets every 6 hours as needed for pain TRAMADOL HCL 53970890117 Active Simon Castillo MD Active PREDNISONE 5 MG TAB Take one po qod PREDNISONE 43110140937 No Longer Active Simon Castillo MD Active GLYBURIDE 5 MG TAB Take one by mouth daily GLYBURIDE 86372542130 No Longer Active Simon Castillo MD Active LEVAQUIN 750 MG TABS 1 po qod x 5 doses LEVOFLOXACIN 18321254331 No Longer Active Simon Castillo MD Active CETIRIZINE HCL 10 MG TABS 1 po qd as needed for allergies CETIRIZINE HCL 44581298198 No Longer Active Simon Castillo MD Active FISH OIL 1000 MG CPDR 1 pill by mouth twice daily for cholesterol OMEGA -3 FATTY ACIDS 08904163695 Active Simon Castillo MD Active BILBERRY CAPS 1 tab daily BILBERRY (VACCINIUM MYRTILLUS) CAPS 44159983517 Active Simon Castillo MD Active ATENOLOL 50 MG TABS Take one by mouth daily ATENOLOL 61131513843 No Longer Active Simon Castillo MD Active FLONASE 50 MCG/ACT SUSP 2 puffs in each nostril daily FLUTICASONE PROPIONATE 30921994470 No Longer Active Simon Castillo MD Active GLYBURIDE 5 MG TAB Take one by mouth daily GLYBURIDE 54134826685 No Longer Active Simon Castillo MD Active SYMBICORT 80-4.5 MCG/ACT AERO 2 puffs twice a day BUDESONIDE-FORMOTEROL FUMARATE 30904962391 No Longer Active Simon Castillo MD Active PREDNISONE 20 MG TAB 2 tabs daily for 4 days, 1 tab daily for 4 days, 1/2 tab daily for 4 days PREDNISONE 85078011285 No Longer Active Simon Castillo MD Active AMOXICILLIN 500 MG CAPS 2 po BID x 10 days AMOXICILLIN 97840419805 No Longer Active Simon Castillo MD Active METFORMIN HCL 1000 MG TABS 1 by mounth twice a day METFORMIN HCL 14151578737 No Longer Active Simon Castillo MD Active LUTEIN-ZEAXANTHIN 6-1 MG TABS Take 2 by mouth daily LUTEIN-ZEAXANTHIN 00435357280 Active Simon Castillo MD Active IBUPROFEN 800 MG TABS Take 1 tab every 6 hrs prn IBUPROFEN 51725844369 No Longer Active Simon Castillo MD Active GLYBURIDE 2.5 MG TABS Take one by mouth daily GLYBURIDE 34174129690 No Longer Active Simon Castillo MD Active LANCETS MISC 2 qd LANCETS 51470603886 Active Pamela Conde Active ACACIA CONTOUR TEST STRP Use with testing twice daily GLUCOSE BLOOD 62835452926 Active Simon Castillo MD Active ACAICA ASPIRIN 325 MG TABS Take one by mouth daily ASPIRIN 22465816787 Active Pamela Conde Active GLYBURIDE 2.5 MG TABS Take one by mouth daily GLYBURIDE 2.5 MG TABS 341215 GLYBURIDE Inactive PREDNISONE 20 MG TAB 2 tabs daily for 4 days, 1 tab daily for 4 days, 1/2 tab daily for 4 days PREDNISONE 20 MG TAB 759880 PREDNISONE Inactive SYMBICORT 80-4.5 MCG/ACT AERO 2 puffs twice a day SYMBICORT 80-4.5 MCG/ACT AERO BUDESONIDE-FORMOTEROL FUMARATE Inactive FLONASE 50 MCG/ACT SUSP 2 puffs in each nostril daily FLONASE 50 MCG/ACT SUSP FLUTICASONE PROPIONATE Inactive ATENOLOL 50 MG TABS Take one by mouth daily ATENOLOL 50 MG TABS 159929 ATENOLOL Inactive CETIRIZINE HCL 10 MG TABS 1 po qd as needed for allergies CETIRIZINE HCL 10 MG TABS 3687569 CETIRIZINE HCL Inactive LEVAQUIN 750 MG TABS 1 po qod x 5 doses LEVAQUIN 750 MG TABS 357368 LEVOFLOXACIN Inactive GLYBURIDE 5 MG TAB Take one by mouth daily GLYBURIDE 5 MG TAB 757809 GLYBURIDE Inactive PREDNISONE 5 MG TAB Take one po qod PREDNISONE 5 MG TAB 641889 PREDNISONE Inactive PREDNISONE 20 MG TAB 2 tabs daily for 5 days, then 1 daily for 5 days PREDNISONE 20 MG TAB 994889 PREDNISONE Inactive FLONASE 50 MCG/ACT SUSP 2 puffs in each nostril daily FLONASE 50 MCG/ACT SUSP FLUTICASONE PROPIONATE Inactive SYMBICORT 160-4.5 MCG/ACT AERO 2 puff BID SYMBICORT 160-4.5 MCG/ACT AERO BUDESONIDE-FORMOTEROL FUMARATE Inactive PREDNISONE 5 MG TABS 1 po qod PREDNISONE 5 MG TABS 728212 PREDNISONE Inactive AMOXICILLIN 500 MG CAPS 2 po BID x 10 days AMOXICILLIN 500 MG CAPS 083748 AMOXICILLIN Inactive GLYBURIDE 5 MG TAB Take one by mouth daily GLYBURIDE 5 MG TAB 973435 GLYBURIDE Inactive AZITHROMYCIN 250 MG TABS 2 po qd x 1 day, then 1 po qd x 4 days AZITHROMYCIN 250 MG TABS 9708250 AZITHROMYCIN Inactive PREDNISONE 20 MG TAB 2 tabs daily for 3 days, 1 tab daily for 3 days, 1/2 tab daily for 2 days PREDNISONE 20 MG TAB 559613 PREDNISONE Inactive PREDNISONE 20 MG TAB 2 tabs daily for 5 days, then 1 daily for 5 days, then 0.5 for 4 days PREDNISONE 20 MG TAB 963185 PREDNISONE Inactive Immunizations Vaccine Administration Date Value [...] leukocyte count, blood 11.1 10^3/MM^3 10*3/mm3 4.6-10.2 red blood cell distribution width 14.8 % 11.6-14.8 platelet count 248 10^3/MM^3 10*3/mm3 491-367 8291/09/18 hematocrit, blood 39.6 % 41.0-53.0 mean corpuscular volume, RBC 93 fL 80-97 mean corpuscular hemoglobin, RBC 30.3 pg 27.0-31.2 mean corpuscular hemoglobin concentration, RBC 32.5 G/DL % 31.8- 35.4 neutrophils as percent of blood leukocytes 75.7 % 42.2-75.2 monocytes as percent of blood leukocytes 7.2 % 1.7-9.3 lymphocytes as percent of blood leukocytes 13.3 % 20.5-51.1 erythrocyte (RBC) count 4.25 10^6/MM^3 10*6/mm3 4.69-6.13 hemoglobin, blood 12.9 g/dL 13.5-17.5 Lab Report: CBC W/DIFF, Comp. Metabolic Panel - Chemistry sodium, serum 132 mmol/L 631-960 6429/10/26 carbon dioxide, venous blood 22.8 mmol/L 21.0-32.0 [...] CBC W/DIFF, Comp. Metabolic Panel - Hematology neutrophils as percent of blood leukocytes 80.0 [...] Rate - Chemistry sodium, serum 136 mmol/L 653-581 3075/09/18 creatinine, serum 2.57 mg/dL 0.55-1.30 alanine aminotransferase (SGPT), serum 27 U/L -78 aspartate aminotransferase (SGOT), serum 18 U/L 15-37 calcium, serum 8.4 mg/dL 8.5-10.1 carbon dioxide, venous blood 24.3 mmol/L 21.0-32.0 potassium, serum 5.1 mmol/L 3.5-5.2 chloride, serum 104 mmol/L 98-107 blood glucose 331 mg/dL 65-110 urea nitrogen, blood 43 mg/dL 04-08 Lab Report: Comp. Metabolic Panel, HGBA1C - Chemistry aspartate aminotransferase (SGOT), serum 12 U/L 15-37 calcium, serum 8.2 mg/dL 8.5-10.1 bilirubin, serum, total 0.80 mg/dL 0.00-1.00 hemoglobin A1C, blood, as % of total hemoglobin 6.9 % 4.3-6.0 alanine aminotransferase (SGPT), serum 22 U/L - creatinine, serum 2.40 mg/dL 0.60-1.30 urea nitrogen, blood 47 mg/dL -18 blood glucose 199 mg/dL 65-110 chloride, serum 105 mmol/L 98-107 potassium, serum 5.4 mmol/L 3.5-5.2 sodium, serum 139 mmol/L 014-386 8705/07/09 carbon dioxide, venous blood 25.6 mmol/L 21.0-32.0 Lab Report: HGBA1C - Chemistry hemoglobin A1C, blood, as % of total hemoglobin 6.8 % 4.3-6.0 hemoglobin A1C, blood, as % of total hemoglobin 7.7 % 4.3-6.0 Lab Report: Lipid Panel - Chemistry cholesterol, serum 139 mg/dL 398-598 2952/09/10 triglyceride, serum, fasting 176 mg/dL 30-200 HDL cholesterol, serum 45 mg/dL 32-96 LDL cholesterol, serum 59 mg/dL 0-130 Lab Report: MICROALBUMIN - Chemistry albumin/creatinine ratio, urine 30 - 300 mg/g mg/g{creat} 0-29 Lab Report: MICROALBUMIN - Lab microalbumin, urine 30 0-19 Lab Report: Prostatic Specific Ag - Chemistry prostate specific antigen 1.52 ng/mL 0.00-4.00 Encounters Code Encounter Date Provider Facility CPT-97816 Level 3 Est. Patient 11:22:22 [employer] Simon Castillo MD [facility] CPT-54307 Level 3 Est. Patient 09:02:14 CDT Simon Castillo MD [facility] CPT-73540 Level 4 Est. Patient 08:47:25 CDT Simon Castillo MD [facility] CPT-70139 Level 4 Est. Patient 10:17:25 CDT Simon Castillo MD [facility] CPT-77819 Level 4 Est. Patient 10:10:09 [employer] Simon Castillo MD [facility] CPT-57782 Level 4 Est. Patient 11:48:19 CDT Simon Castillo MD [facility] CPT-00223 Level 4 Est. Patient 08:59:29 CDT Simon Castillo MD [facility] CPT-75185 Level 4 Est. Patient 10:52:51 [employer] Simon Castillo MD [facility] CPT-63526 Level 4 Est. Patient 11:50:30 CDT Simon Castillo MD [facility] CPT-27362 Level 4 Est. Patient 09:54:46 CDT Simon Castillo MD [facility] CPT-99873 Level 3 Est. Patient 11:10:14 CDT Simon Castillo MD [facility] CPT-35147 Level 4 Est. Patient 09:44:02 CDT Simon Castillo MD [facility] CPT-34407 Level 3 Est. Patient 09:27:48 CDT Simon Csatillo MD [facility] CPT-06222 Level 3 Est. Patient 09:58:06 [employer] Simon Castillo MD [facility] CPT-52929 Level 3 Est. Patient 09:51:35 CDT Simon Castillo MD [facility] Procedures Code Procedure Name Date Entry Date Standard Description CPT-32529 Bone Density 09:37:49 [employer] CPT-55144 Fluzone High Dose 17:20:42 CDT CPT-36752 Prevnar 13 17:20:42 CDT CPT-72785 Administration 2+ single or combination vaccines inc oral 17:20:42 CDT CPT-89023 Administration single or combination vaccine inc oral 17 :20:42 CDT CPT-57834 Hand comp min 3V 09:24:38 CDT CPT-25402 Venipuncture Draw Fee 08:07:29 [employer] CPT-59764 Venipuncture Draw Fee 09:02:51 [employer] CPT-14165 Venipuncture Draw Fee 12:45:08 [employer] CPT-42778 Venipuncture Draw Fee 09:25:31 CDT CPT-G0008 Administration of Influenza Virus Vaccine 14:41:29 CDT CPT-09271 Fluzone High-Dose Intramuscular Suspension 14:41:29 CDT CPT-Cryo Cryotherapy 11:48:20 CDT CPT-29778 EKG Trac and Interp 09:21:58 CDT CPT-36216 Chest 2V Frontal and Lat 09:21:58 CDT CPT-Cryo Cryotherapy 10:54:51 [employer] CPT-32773 Administration 2+ single or combination vaccines inc oral 10:42:19 CDT CPT-35662 Administration single or combination vaccine inc oral 10 :42:19 CDT CPT-01392 Pneumovax 10:42:19 CDT CPT-20482 Influenza High Dose age 65+ 10:42:19 CDT CPT-66102 Administration single or combination vaccine inc oral 13 :18:54 CDT CPT-38707 Influenza High Dose age 65+ 13:18:54 CDT CPT-83778 Venipuncture Draw Fee 11:53:16 CDT CPT-55052 LS spine comp w obliq 11:03:13 CDT CPT-Cryo Cryotherapy 08:27:16 [employer] CPT-19189 Administration single or combination vaccine inc oral 10 :56:34 CDT CPT-44021 Influenza High Dose age 65+ 10:56:34 CDT
--- OUTSIDE RECORDS SUMMARY | 2018-03-31 17:07 | XMS REPORT | Clinical Summary ---
Author Author Admin, E Organization [employer] Address Unknown Phone Unavailable Allergies, Adverse Reactions, [...] HYPERTROPHY, MILD, HX OF V13.89 Resolved 10/14 Simno Castillo MD Personal history of other specified [...] MD Other dyspnea and respiratory abnormality FH LUNG CANCER ICD-V16.1 Inactive Simon Castillo MD FH DIABETES ICD-V18.0 Inactive Simon Castillo MD CHEST WALL PAIN, HX OF ICD-V15.89 Inactive Simon Castillo MD SEBORRHEIC KERATOSIS ICD-702.19 Inactive Simon Castillo MD BRONCHITIS, ACUTE ICD-466.0 Inactive Simon Castillo MD ABDOMINAL TENDERNESS ICD-789.60 Inactive Simon Castillo MD SINUSITIS, ACUTE ICD-461.9 Inactive Simon Catsillo MD BENIGN PROSTATIC HYPERTROPHY, MILD, 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00 Inactive Simon Castillo MD 2013 Dyspnea ICD-786.09 Inactive Simon Castillo MD 2016 [...] MG ORAL TABS 1 po qd BUMETANIDE 53668353935 Active Simon Castillo MD Active AUGMENTIN 875-125 MG ORAL TABS 1 po BID x 10 days AMOXICILLIN-POT CLAVULANATE 46470667927 No Longer Active Simon Castillo MD Active PIOGLITAZONE HCL 30 MG ORAL TABS 1 po qd PIOGLITAZONE HCL 87869076139 Active Simon Castillo MD Active GLIMEPIRIDE 4 MG ORAL TABS 1 po BID GLIMEPIRIDE 16860265305 Active Simon Castillo MD Active ASPIRIN EC 81 MG ORAL TBEC 1 po qd ASPIRIN 51571983112 Active Siomn Castillo MD Active CLOTRIMAZOLE 1 % EXT CREA Apply to affected area of feet twice daily PRN Rash CLOTRIMAZOLE 26038385305 No Longer Active Siomn Castillo MD Active PREDNISONE 5 MG TAB 1 po BID PREDNISONE 00495908432 Active Simon Castillo MD Active FISH OIL 1000 MG CPDR 1 po BID OMEGA-3 FATTY ACIDS 96702368610 Active Simon Castillo MD Active LISINOPRIL 10 MG TABS 1 p qd LISINOPRIL 21830264358 Active Simon Castillo MD Active CLARITIN 10 MG TAB 1 tablet by mouth daily as needed for allergies LORATADINE 15239606780 No Longer Active Simon Castillo MD Active TRIAMCINOLONE ACETONIDE 0.1 % OINT Apply to affected areas TID for up to 2 weeks TRIAMCINOLONE ACETONIDE 02731796468 No Longer Active Simon Castillo MD Active LASIX 20 MG TAB 1 tablet by mouth daily x 2 days FUROSEMIDE 97623827129 No Longer Active Simon Castillo MD Active SULFASALAZINE 500 MG ORAL TBEC 2 tabs BID SULFASALAZINE 28383439286 No Longer Active Neto Oshea DO Active PREDNISONE 20 MG TAB 2 tabs daily for 3 days, 1 tab daily for 3 days, 1/2 tab daily for 2 days PREDNISONE 66012024759 No Longer Active 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 OUTREACH NURSE Active PREDNISONE 20 MG TAB 1 tablet daily for airway inflammation 02/25 PREDNISONE 39882217808 No Longer Active 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 OUTREACH NURSE Active AZITHROMYCIN 250 MG TABS 2 po qd x 1 day, then 1 po qd x 4 days AZITHROMYCIN 36296214668 No Longer Active 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 OUTREACH NURSE Active HYDROCODONE-ACETAMINOPHEN 5-325 MG TABS 1 tab by mouth 8 hours as needed for pain HYDROCODONE-ACETAMINOPHEN 86694703526 Active Simon Castillo MD Active TRAMADOL HCL 50 MG TABS 1 po q6hr PRN Pain TRAMADOL HCL 55197047720 No Longer Active Simon Castillo MD Active PREDNISONE 5 MG TABS 1 po qod PREDNISONE 20676863443 No Longer Active Simon Castillo MD Active SYMBICORT 160-4.5 MCG/ACT AERO 2 puff BID BUDESONIDE- FORMOTEROL FUMARATE 13923084261 No Longer Active Simon Castillo MD Active FLONASE 50 MCG/ACT SUSP 2 puffs in each nostril daily FLUTICASONE PROPIONATE 44870170958 No Longer Active Simon Castillo MD Active PREDNISONE 20 MG TAB 2 tabs daily for 5 days, then 1 daily for 5 days PREDNISONE 23218600818 No Longer Active Simon Castillo MD Active PREDNISONE 20 MG TAB 2 tabs daily for 5 days, then 1 daily for 5 days, then 0.5 for 4 days PREDNISONE 90644910903 No Longer Active Simon Castillo MD Active PREDNISONE 20 MG TAB 2 tabs daily for 3 days, 1 tab daily for 3 days, 1/2 tab daily for 2 days PREDNISONE 76447062618 No Longer Active Simon Castillo MD Active AZITHROMYCIN 250 MG TABS 2 po qd x 1 day, then 1 po qd x 4 days AZITHROMYCIN 63745641484 No Longer Active Simon Castillo MD Active CARVEDILOL 6.25 MG TABS 1 po BID CARVEDILOL 42712089811 Active Simon Castillo MD Active LISINOPRIL-HYDROCHLOROTHIAZIDE 20-12.5 MG TABS 1/2 tab by mouth daily LISINOPRIL-HYDROCHLOROTHIAZIDE 80591498880 No Longer Active Simon Castillo MD Active TRAMADOL HCL 50 MG TABS 1-2 tablets every 6 hours as needed for pain TRAMADOL HCL 54463100529 Active Giles Tatum APRN Active PREDNISONE 5 MG TAB Take one po qod PREDNISONE 50497252922 No Longer Active Simon Castillo MD Active GLYBURIDE 5 MG TAB Take one by mouth daily GLYBURIDE 00011541740 No Longer Active Simon Castillo MD Active LEVAQUIN 750 MG TABS 1 po qod x 5 doses LEVOFLOXACIN 59410636967 No Longer Active Simon Castillo MD Active CETIRIZINE HCL 10 MG TABS 1 po qd as needed for allergies CETIRIZINE HCL 39804002340 No Longer Active Simon Castillo MD Active BILBERRY CAPS 1 tab daily BILBERRY (VACCINIUM MYRTILLUS) CAPS 75486894560 Active Simon Castillo MD Active ATENOLOL 50 MG TABS Take one by mouth daily ATENOLOL 79352363152 No Longer Active Simon Castillo MD Active FLONASE 50 MCG/ACT SUSP 2 puffs in each nostril daily FLUTICASONE PROPIONATE 08189376887 No Longer Active Simon Castillo MD Active GLYBURIDE 5 MG TAB Take one by mouth daily GLYBURIDE 54404699352 No Longer Active Simon Castillo MD Active SYMBICORT 80-4.5 MCG/ACT AERO 2 puffs twice a day BUDESONIDE-FORMOTEROL FUMARATE 39686511525 No Longer Active Simon Castillo MD Active PREDNISONE 20 MG TAB 2 tabs daily for 4 days, 1 tab daily for 4 days, 1/2 tab daily for 4 days PREDNISONE 39951002543 No Longer Active Simon Castillo MD Active AMOXICILLIN 500 MG CAPS 2 po BID x 10 days AMOXICILLIN 34351374878 No Longer Active Simon Castillo MD Active METFORMIN HCL 1000 MG TABS 1 by mounth twice a day METFORMIN HCL 37395577319 No Longer Active Simon Castillo MD Active LUTEIN-ZEAXANTHIN 6-1 MG TABS Take 2 by mouth daily LUTEIN-ZEAXANTHIN 73041809266 Active Simon Castillo MD Active IBUPROFEN 800 MG TABS Take 1 tab every 6 hrs prn IBUPROFEN 58440376667 No Longer Active Simon Castillo MD Active GLYBURIDE 2.5 MG TABS Take one by mouth daily GLYBURIDE 27329406439 No Longer Active Simon Castillo MD Active LANCETS MISC 2 qd LANCETS 66642114563 Active Pamela Conde Active ACACIA CONTOUR TEST STRP Use with testing twice daily GLUCOSE BLOOD 35469657982 Active Simon Castillo MD Active GLYBURIDE 2.5 MG TABS Take one by mouth daily GLYBURIDE 2.5 MG TABS 860188 GLYBURIDE Inactive PREDNISONE 20 MG TAB 2 tabs daily for 4 days, 1 tab daily for 4 days, 1/2 tab daily for 4 days PREDNISONE 20 MG TAB 934307 PREDNISONE Inactive SYMBICORT 80-4.5 MCG/ACT AERO 2 puffs twice a day SYMBICORT 80-4.5 MCG/ACT AERO BUDESONIDE-FORMOTEROL FUMARATE Inactive FLONASE 50 MCG/ACT SUSP 2 puffs in each nostril daily FLONASE 50 MCG/ACT SUSP 1576886 FLUTICASONE PROPIONATE Inactive ATENOLOL 50 MG TABS Take one by mouth daily ATENOLOL 50 MG TABS 564594 ATENOLOL Inactive CETIRIZINE HCL 10 MG TABS 1 po qd as needed for allergies CETIRIZINE HCL 10 MG TABS 4718808 CETIRIZINE HCL Inactive LEVAQUIN 750 MG TABS 1 po qod x 5 doses LEVAQUIN 750 MG TABS 180375 LEVOFLOXACIN Inactive GLYBURIDE 5 MG TAB Take one by mouth daily GLYBURIDE 5 MG TAB 113400 GLYBURIDE Inactive PREDNISONE 5 MG TAB Take one po qod PREDNISONE 5 MG TAB 420891 PREDNISONE Inactive PREDNISONE 20 MG TAB 2 tabs daily for 5 days, then 1 daily for 5 days PREDNISONE 20 MG TAB 276051 PREDNISONE Inactive FLONASE 50 MCG/ACT SUSP 2 puffs in each nostril daily FLONASE 50 MCG/ACT SUSP 6610081 FLUTICASONE PROPIONATE Inactive SYMBICORT 160-4.5 MCG/ACT AERO 2 puff BID SYMBICORT 160-4.5 MCG/ACT AERO BUDESONIDE-FORMOTEROL FUMARATE Inactive PREDNISONE 5 MG TABS 1 po qod PREDNISONE 5 MG TABS 486959 PREDNISONE Inactive PREDNISONE 20 MG TAB 1 tablet daily for airway inflammation 02/25 PREDNISONE 20 MG TAB 453560 PREDNISONE Inactive SULFASALAZINE 500 MG ORAL TBEC 2 tabs BID SULFASALAZINE 500 MG ORAL [facility] 704855 SULFASALAZINE Inactive LASIX 20 MG TAB 1 tablet by mouth daily x 2 days LASIX 20 MG TAB 781568 FUROSEMIDE Inactive CLARITIN 10 MG TAB 1 tablet by mouth daily as needed for allergies CLARITIN 10 MG TAB 374667 LORATADINE Inactive CLOTRIMAZOLE 1 % EXT CREA Apply to affected area of feet twice daily PRN Rash CLOTRIMAZOLE 1 % EXT CREA 071058 CLOTRIMAZOLE Inactive AMOXICILLIN 500 MG CAPS 2 po BID x 10 days AMOXICILLIN 500 MG CAPS 921237 AMOXICILLIN Inactive GLYBURIDE 5 MG TAB Take one by mouth daily GLYBURIDE 5 MG TAB 168592 GLYBURIDE Inactive AZITHROMYCIN 250 MG TABS 2 po qd x 1 day, then 1 po qd x 4 days AZITHROMYCIN 250 MG TABS 826292 AZITHROMYCIN Inactive PREDNISONE 20 MG TAB 2 tabs daily for 3 days, 1 tab daily for 3 days, 1/2 tab daily for 2 days PREDNISONE 20 MG TAB 185686 PREDNISONE Inactive PREDNISONE 20 MG TAB 2 tabs daily for 5 days, then 1 daily for 5 days, then 0.5 for 4 days PREDNISONE 20 MG TAB 598710 PREDNISONE Inactive AZITHROMYCIN 250 MG TABS 2 po qd x 1 day, then 1 po qd x 4 days AZITHROMYCIN 250 MG TABS 496945 AZITHROMYCIN Inactive PREDNISONE 20 MG TAB 2 tabs daily for 3 days, 1 tab daily for 3 days, 1/2 tab daily for 2 days PREDNISONE 20 MG TAB 830652 PREDNISONE Inactive TRIAMCINOLONE ACETONIDE 0.1 % OINT Apply to affected areas TID for up to 2 weeks TRIAMCINOLONE ACETONIDE 0.1 % OINT 2653455 TRIAMCINOLONE ACETONIDE Inactive AUGMENTIN 875-125 MG ORAL TABS 1 po BID x 10 days AUGMENTIN 875-125 MG ORAL TABS 345996 AMOXICILLIN-POT CLAVULANATE Inactive Immunizations Vaccine Administration Date [...] Peptide - Chemistry sodium, serum 142 mmol/L 697-447 0636/07/18 potassium, serum 5.0 mmol/L 3.5-5.2 chloride, serum [...] Panel - Chemistry sodium, serum 140 mmol/L 841-187 3216/07/13 carbon dioxide, venous blood 23.7 mmol/L 21.0-32.0 [...] Panel - Chemistry cholesterol, serum 126 mg/dL 975-600 9064/02/07 triglyceride, serum, fasting 83 mg/dL 30-200 HDL cholesterol, serum 70 mg/dL 32-96 LDL cholesterol, serum 39 mg/dL 0-130 hemoglobin A1C, blood, as % of total hemoglobin 8.3 % 4.3-6.0 sodium, serum 141 mmol/L 979-771 6943/02/07 carbon dioxide, venous blood 26.0 mmol/L 21.0-32.0 [...] 0.00-1.00 Encounters Code Encounter Date Provider Facility CPT-07763 Level 4 Est. Patient 08:48:38 CDT Simon Castillo MD [facility] CPT-82929 Level 4 Est. Patient 09:54:08 CDT Simon Castillo MD [facility] CPT-52826 Level 4 Est. Patient 16:11:23 CDT Simon Castillo MD [facility] CPT-69231 Level 4 Est. Patient 09:29:28 [employer] Simon Castillo MD [facility] CPT-63890 Level 3 Est. Patient 09:18:25 CDT Simon Castillo MD [facility] CPT-71654 Level 4 Est. Patient 11:51:23 CDT Simon Castillo MD [facility] CPT-20679 Level 4 Est. Patient 14:32:04 CDT Neto Oshea DO [facility] CPT-64625 Level 3 Est. Patient 08:41:43 CDT Jillina Nashzell [facility] CPT-61419 Level 3 Est. Patient 08:40:53 CDT 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 [facility] CPT-57243 Level 3 Est. Patient 08:36:52 CDT 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 [facility] CPT-45416 Level 3 Est. Patient 09:08:44 CDT Jillina Nashzell [facility] CPT-83006 Level 4 Est. Patient 09:17:32 [employer] Simon Castillo MD [facility] CPT-17777 Level 3 Est. Patient 11:22:22 [employer] Simon Castillo MD [facility] CPT-10943 Level 3 Est. Patient 09:02:14 CDT Simon Castillo MD [facility] CPT-74331 Level 4 Est. Patient 08:47:25 CDT Simon Castillo MD [facility] CPT-12712 Level 4 Est. Patient 10:17:25 CDT Simon Castillo MD [facility] CPT-30765 Level 4 Est. Patient 10:10:09 [employer] Simon Castillo MD [facility] CPT-35235 Level 4 Est. Patient 11:48:19 CDT Simon Castillo MD [facility] CPT-58311 Level 4 Est. Patient 08:59:29 CDT Simon Castillo MD [facility] CPT-82011 Level 4 Est. Patient 10:52:51 [employer] Simon Castillo MD [facility] CPT-59387 Level 4 Est. Patient 11:50:30 CDT Simon Castillo MD [facility] CPT-31734 Level 4 Est. Patient 09:54:46 CDT Simon Castillo MD [facility] CPT-44780 Level 3 Est. Patient 11:10:14 CDT Simon Castillo MD [facility] CPT-05406 Level 4 Est. Patient 09:44:02 CDT Simon Castillo MD [facility] CPT-36768 Level 3 Est. Patient 09:27:48 CDT Simon Castillo MD [facility] CPT-82627 Level 3 Est. Patient 09:58:06 [employer] Simon Castillo MD [facility] CPT-44480 Level 3 Est. Patient 09:51:35 CDT Simon Castillo MD [facility] Procedures Code Procedure Name Date Entry Date Standard Description CPT-34288 First Vx - Ix admin for Medicare patients 09:13:10 CDT CPT-04932 Fluzone High-Dose Intramuscular Suspension 09:13:10 CDT CPT-G0439 [facility] Annual Wellness Exam 09:41:17 CDT CPT-82587 Lipid - LAB USE ONLY 17:15:33 CDT CPT-82634 HGBA1C - LAB USE ONLY 17:15:33 CDT CPT-46083 CMP - LAB USE ONLY 17:15:33 CDT CPT-45518 Venipuncture Draw Fee 17:15:33 CDT CPT-[facility] Trans[facility] Mgmt-High 11:01:28 [employer] CPT-71975 First Vx - Ix admin for Medicare patients 17:33:39 CDT CPT-18515 Fluzone High-Dose Intramuscular Suspension 17:33:39 CDT CPT-G0438 Initial Annual Wellness Exam 08:57:30 CDT CPT-93866 Chest 2V Frontal and Lat - XRAY USE ONLY 09:00:14 CDT CPT-46929 Venipuncture Draw Fee 13:33:02 CDT CPT-51423 Bone Density 09:37:49 [employer] CPT-93236 Fluzone High Dose 17:20:42 CDT CPT-51429 Prevnar 13 17:20:42 CDT CPT-83016 Administration 2+ single or combination vaccines inc oral 17:20:42 CDT CPT-45622 Administration single or combination vaccine inc oral 17 :20:42 CDT CPT-76013 Hand comp min 3V 09:24:38 CDT CPT-08447 Venipuncture Draw Fee 08:07:29 [employer] CPT-47277 Venipuncture Draw Fee 09:02:51 [employer] CPT-62424 Venipuncture Draw Fee 12:45:08 [employer] CPT-06305 Venipuncture Draw Fee 09:25:31 CDT CPT-G0008 Administration of Influenza Virus Vaccine 14:41:29 CDT CPT-92243 Fluzone High-Dose Intramuscular Suspension 14:41:29 CDT CPT-[facility] Cryotherapy 11:48:20 CDT CPT-02439 EKG Trac and Interp 09:21:58 CDT CPT-26957 Chest 2V Frontal and Lat 09:21:58 CDT CPT-Cryo Cryotherapy 10:54:51 [employer] CPT-75762 Administration 2+ single or combination vaccines inc oral 10:42:19 CDT CPT-94263 Administration single or combination vaccine inc oral 10 :42:19 CDT CPT-09064 Pneumovax 10:42:19 CDT CPT-69418 Influenza High Dose age 65+ 10:42:19 CDT CPT-09516 Administration single or combination vaccine inc oral 13 :18:54 CDT CPT-16857 Influenza High Dose age 65+ 13:18:54 CDT CPT-25128 Venipuncture Draw Fee 11:53:16 CDT CPT-35355 LS spine comp w obliq 11:03:13 CDT CPT-Cryo Cryotherapy 08:27:16 [employer] CPT-24868 Administration single or combination vaccine inc oral 10 :56:34 CDT CPT-14069 Influenza High Dose age 65+ 10:56:34 CDT
--- OUTSIDE RECORDS SUMMARY | 2018-03-31 17:08 | XMS REPORT | Clinical Summary ---
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 term care social worker V58.65 Resolved Simon Castillo MD Long-term (current) [...] Rheumatoid arthritis Pharyngitis 462 Active 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 COVER INSPECTOR Acute pharyngitis Dyspnea 786.09 Active 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 COVER INSPECTOR Other dyspnea and respiratory abnormality Peripheral edema 782.3 Active 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 COVER INSPECTOR Edema FH DIABETES ICD-V18.0 Inactive Simon Castillo [...] ICD-729.5 Inactive Simon Castillo MD Steroid use, half-way ICD-V58.65 Inactive Simon Castillo MD Hand pain, bilateral ICD-729.5 Kerry Castillo MD Medication List Medication Instructions Start Date Stop Date Generic Name NDC Status Provider Patient Instruction PREDNISONE 20 MG TAB 1 tablet daily for airway inflammation 02/25 PREDNISONE 69978189027 No Longer Active Jillina Deepti HEMPHILL Active SULFASALAZINE 500 MG ORAL TBEC 2 tabs BID SULFASALAZINE 64098717984 Active Jillina Deepti HEMPHILL Active CLARITIN 10 MG TAB 1 tablet by mouth daily as needed for allergies LORATADINE 90447195600 Active Jillina Deepti HEMPHILL Active AZITHROMYCIN 250 MG TABS 2 po qd x 1 day, then 1 po qd x 4 days AZITHROMYCIN 86762158424 No Longer Active Jillina Fratico HEMPHILL Active GLIMEPIRIDE 2 MG ORAL TABS 1 po q a.m. GLIMEPIRIDE 94805666038 Active Simon Castillo MD Active HYDROCODONE-ACETAMINOPHEN 5-325 MG TABS 1 tab by mouth 8 hours as needed for pain HYDROCODONE-ACETAMINOPHEN 29861017814 Active Simon Castillo MD Active TRAMADOL HCL 50 MG TABS 1 po q6hr PRN Pain TRAMADOL HCL 41651929483 No Longer Active Simon Castillo MD Active PREDNISONE 5 MG TAB 1-2 tabs daily for rheumatoid arthritis PREDNISONE 88161234323 Active Simon Castillo MD Active PREDNISONE 5 MG TABS 1 po qod PREDNISONE 14681582532 No Longer Active Simon Castillo MD Active SYMBICORT 160-4.5 MCG/ACT AERO 2 puff BID BUDESONIDE- FORMOTEROL FUMARATE 68181659376 No Longer Active Simon Castillo MD Active FLONASE 50 MCG/ACT SUSP 2 puffs in each nostril daily FLUTICASONE PROPIONATE 56902457952 No Longer Active Simon Castillo MD Active PREDNISONE 20 MG TAB 2 tabs daily for 5 days, then 1 daily for 5 days PREDNISONE 71317702539 No Longer Active Simon Castillo MD Active PREDNISONE 20 MG TAB 2 tabs daily for 5 days, then 1 daily for 5 days, then 0.5 for 4 days PREDNISONE 16997509460 No Longer Active Simon Castillo MD Active CLOTRIMAZOLE 1 % EXT CREA Apply to affected area of feet twice daily PRN Rash CLOTRIMAZOLE 47467357974 Active Simon Castillo MD Active PREDNISONE 20 MG TAB 2 tabs daily for 3 days, 1 tab daily for 3 days, 1/2 tab daily for 2 days PREDNISONE 60713165901 No Longer Active Simon Castillo MD Active AZITHROMYCIN 250 MG TABS 2 po qd x 1 day, then 1 po qd x 4 days AZITHROMYCIN 74614073426 No Longer Active Simon Castillo MD Active LISINOPRIL 10 MG TABS 1 tablet by mouth daily LISINOPRIL 27186890621 Active Simon Castillo MD Active CARVEDILOL 6.25 MG TABS 1 po BID CARVEDILOL 98241814005 Active Simon Castillo MD Active LISINOPRIL-HYDROCHLOROTHIAZIDE 20-12.5 MG TABS 1/2 tab by mouth daily LISINOPRIL-HYDROCHLOROTHIAZIDE 90325316177 No Longer Active Siomn Castillo MD Active TRAMADOL HCL 50 MG TABS 1-2 tablets every 6 hours as needed for pain TRAMADOL HCL 46075925298 Active Giles Tatum KANCHAN Active PREDNISONE 5 MG TAB Take one po qod PREDNISONE 32068257136 No Longer Active Simon Castillo MD Active GLYBURIDE 5 MG TAB Take one by mouth daily GLYBURIDE 82120719978 No Longer Active Simon Castillo MD Active LEVAQUIN 750 MG TABS 1 po qod x 5 doses LEVOFLOXACIN 62473713588 No Longer Active Simon Castillo MD Active CETIRIZINE HCL 10 MG TABS 1 po qd as needed for allergies CETIRIZINE HCL 78437674752 No Longer Active Simon Castillo MD Active FISH OIL 1000 MG CPDR 1 pill by mouth twice daily for cholesterol OMEGA -3 FATTY ACIDS 49746246084 Active Simon Castillo MD Active BILBERRY CAPS 1 tab daily BILBERRY (VACCINIUM MYRTILLUS) CAPS 13695894510 Active Simon Castillo MD Active ATENOLOL 50 MG TABS Take one by mouth daily ATENOLOL 93204961852 No Longer Active Simon Castillo MD Active FLONASE 50 MCG/ACT SUSP 2 puffs in each nostril daily FLUTICASONE PROPIONATE 66908125684 No Longer Active Simon Castillo MD Active GLYBURIDE 5 MG TAB Take one by mouth daily GLYBURIDE 04691676727 No Longer Active Simon Castillo MD Active SYMBICORT 80-4.5 MCG/ACT AERO 2 puffs twice a day BUDESONIDE-FORMOTEROL FUMARATE 27430485821 No Longer Active Simon Castillo MD Active PREDNISONE 20 MG TAB 2 tabs daily for 4 days, 1 tab daily for 4 days, 1/2 tab daily for 4 days PREDNISONE 81995424230 No Longer Active Simon Castillo MD Active AMOXICILLIN 500 MG CAPS 2 po BID x 10 days AMOXICILLIN 61252592822 No Longer Active Simon Castillo MD Active METFORMIN HCL 1000 MG TABS 1 by mounth twice a day METFORMIN HCL 02644782243 No Longer Active Simon Castillo MD Active LUTEIN-ZEAXANTHIN 6-1 MG TABS Take 2 by mouth daily LUTEIN-ZEAXANTHIN 43979764489 Active Simon Castillo MD Active IBUPROFEN 800 MG TABS Take 1 tab every 6 hrs prn IBUPROFEN 06915028293 No Longer Active Simon Castillo MD Active GLYBURIDE 2.5 MG TABS Take one by mouth daily GLYBURIDE 07208614827 No Longer Active Simon Castillo MD Active LANCETS MISC 2 qd LANCETS 37561337808 Active Pamela Conde Active ACACIA CONTOUR TEST STRP Use with testing twice daily GLUCOSE BLOOD 64733256529 Active Simon Castillo MD Active ACACIA ASPIRIN 325 MG TABS Take one by mouth daily ASPIRIN 49533637650 Active Pamela Conde Active GLYBURIDE 2.5 MG TABS Take one by mouth daily GLYBURIDE 2.5 MG TABS 547603 GLYBURIDE Inactive PREDNISONE 20 MG TAB 2 tabs daily for 4 days, 1 tab daily for 4 days, 1/2 tab daily for 4 days PREDNISONE 20 MG TAB 100914 PREDNISONE Inactive SYMBICORT 80-4.5 MCG/ACT AERO 2 puffs twice a day SYMBICORT 80-4.5 MCG/ACT AERO BUDESONIDE-FORMOTEROL FUMARATE Inactive FLONASE 50 MCG/ACT SUSP 2 puffs in each nostril daily FLONASE 50 MCG/ACT SUSP 571208 FLUTICASONE PROPIONATE Inactive ATENOLOL 50 MG TABS Take one by mouth daily ATENOLOL 50 MG TABS 966684 ATENOLOL Inactive CETIRIZINE HCL 10 MG TABS 1 po qd as needed for allergies CETIRIZINE HCL 10 MG TABS 8848709 CETIRIZINE HCL Inactive LEVAQUIN 750 MG TABS 1 po qod x 5 doses LEVAQUIN 750 MG TABS 622925 LEVOFLOXACIN Inactive GLYBURIDE 5 MG TAB Take one by mouth daily GLYBURIDE 5 MG TAB 012579 GLYBURIDE Inactive PREDNISONE 5 MG TAB Take one po qod PREDNISONE 5 MG TAB 491824 PREDNISONE Inactive PREDNISONE 20 MG TAB 2 tabs daily for 5 days, then 1 daily for 5 days PREDNISONE 20 MG TAB 203381 PREDNISONE Inactive FLONASE 50 MCG/ACT SUSP 2 puffs in each nostril daily FLONASE 50 MCG/ACT SUSP 060206 FLUTICASONE PROPIONATE Inactive SYMBICORT 160-4.5 MCG/ACT AERO 2 puff BID SYMBICORT 160-4.5 MCG/ACT AERO BUDESONIDE-FORMOTEROL FUMARATE Inactive PREDNISONE 5 MG TABS 1 po qod PREDNISONE 5 MG TABS 440028 PREDNISONE Inactive PREDNISONE 20 MG TAB 1 tablet daily for airway inflammation 02/25 PREDNISONE 20 MG TAB 609831 PREDNISONE Inactive AMOXICILLIN 500 MG CAPS 2 po BID x 10 days AMOXICILLIN 500 MG CAPS 352466 AMOXICILLIN Inactive GLYBURIDE 5 MG TAB Take one by mouth daily GLYBURIDE 5 MG TAB 298570 GLYBURIDE Inactive AZITHROMYCIN 250 MG TABS 2 po qd x 1 day, then 1 po qd x 4 days AZITHROMYCIN 250 MG TABS 8492859 AZITHROMYCIN Inactive PREDNISONE 20 MG TAB 2 tabs daily for 3 days, 1 tab daily for 3 days, 1/2 tab daily for 2 days PREDNISONE 20 MG TAB 163173 PREDNISONE Inactive PREDNISONE 20 MG TAB 2 tabs daily for 5 days, then 1 daily for 5 days, then 0.5 for 4 days PREDNISONE 20 MG TAB 133998 PREDNISONE Inactive AZITHROMYCIN 250 MG TABS 2 po qd x 1 day, then 1 po qd x 4 days AZITHROMYCIN 250 MG TABS 3454359 AZITHROMYCIN Inactive Immunizations Vaccine Administration Date Value [...] Panel - Chemistry sodium, serum 132 mmol/L 250-409 4233/10/26 carbon dioxide, venous blood 22.8 mmol/L 21.0-32.0 [...] Panel - Chemistry sodium, serum 139 mmol/L 087-011 5630/03/17 carbon dioxide, venous blood 29.0 mmol/L 21.0-32.0 [...] Rate - Chemistry sodium, serum 136 mmol/L 981-270 5987/09/18 carbon dioxide, venous blood 24.3 mmol/L 21.0-32.0 [...] HGBA1C - Chemistry sodium, serum 139 mmol/L 295-291 0662/07/09 potassium, serum 5.4 mmol/L 3.5-5.2 chloride, serum [...] 8.5 % 4.3-6.0 sodium, serum 137 mmol/L 836-958 3742/02/12 potassium, serum 5.1 mmol/L 3.5-5.2 chloride, serum 103 mmol/L 98-107 carbon dioxide, venous blood 24.4 mmol/L 21.0-32.0 blood glucose 261 mg/dL 65-110 calcium, serum 9.0 mg/dL 8.5-10.1 urea nitrogen, blood 44 mg/dL 7-18 creatinine, serum 2.37 mg/dL 0.55-1.30 Lab Report: Lipid Panel - Chemistry cholesterol, serum 139 mg/dL 238-313 8513/09/10 triglyceride, serum, fasting 176 mg/dL 30-200 HDL cholesterol, serum 45 mg/dL 32-96 LDL cholesterol, serum 59 mg/dL 0-130 Lab Report: MICROALBUMIN - Chemistry albumin/creatinine ratio, urine 30 - 300 mg/g mg/g{creat} 0-29 Lab Report: MICROALBUMIN - Lab microalbumin, urine 30 0-19 Lab Report: Uric Acid - Chemistry uric acid, serum 6.3 mg/dL 2.6-7.2 Encounters Code Encounter Date Provider Facility CPT-43328 Level 3 Est. Patient 08:41:43 CDT [facility] CPT-07057 Level 3 Est. Patient 08:40:53 CDT [facility] CPT-23940 Level 3 Est. Patient 08:36:52 CDT [facility] CPT-39074 Level 3 Est. Patient 09:08:44 CDT [facility] CPT-14376 Level 4 Est. Patient 09:17:32 COMMUNICATIONS DEPARTMENT CHAIR Simon Castillo MD [facility] CPT-34957 Level 3 Est. Patient 11:22:22 COMMUNICATIONS DEPARTMENT CHAIR Simon Castillo MD [facility] CPT-13340 Level 3 Est. Patient 09:02:14 CDT Simon Castillo MD [facility] CPT-28137 Level 4 Est. Patient 08:47:25 CDT Simon Castillo MD [facility] CPT-42315 Level 4 Est. Patient 10:17:25 CDT Simon Castillo MD [facility] CPT-08824 Level 4 Est. Patient 10:10:09 COMMUNICATIONS DEPARTMENT CHAIR Simon Castillo MD [facility] CPT-58446 Level 4 Est. Patient 11:48:19 CDT Simon Castillo MD [facility] CPT-62241 Level 4 Est. Patient 08:59:29 CDT Simon Castillo MD [facility] CPT-41912 Level 4 Est. Patient 10:52:51 COMMUNICATIONS DEPARTMENT CHAIR Simon Castillo MD [facility] CPT-25577 Level 4 Est. Patient 11:50:30 CDT Simon Castillo MD [facility] CPT-50123 Level 4 Est. Patient 09:54:46 CDT Simon Castillo MD [facility] CPT-58312 Level 3 Est. Patient 11:10:14 CDT Simon Castillo MD [facility] CPT-11899 Level 4 Est. Patient 09:44:02 CDT Simon Castillo MD [facility] CPT-68212 Level 3 Est. Patient 09:27:48 CDT Simon Castillo MD [facility] CPT-14751 Level 3 Est. Patient 09:58:06 COMMUNICATIONS DEPARTMENT CHAIR Simon Castillo MD [facility] CPT-49175 Level 3 Est. Patient 09:51:35 CDT Simon Castillo MD [facility] Procedures Code Procedure Name Date Entry Date Standard Description CPT-79348 Chest 2V Frontal and Lat - XRAY USE ONLY 09:00:14 CDT CPT-32077 Venipuncture Draw Fee 13:33:02 CDT CPT-01912 Bone Density 09:37:49 COMMUNICATIONS DEPARTMENT CHAIR CPT-98378 Fluzone High Dose 17:20:42 CDT CPT-17418 Prevnar 13 17:20:42 CDT CPT-46924 Administration 2+ single or combination vaccines inc oral 17:20:42 CDT CPT-00609 Administration single or combination vaccine inc oral 17 :20:42 CDT CPT-31565 Hand comp min 3V 09:24:38 CDT CPT-93276 Venipuncture Draw Fee 08:07:29 COMMUNICATIONS DEPARTMENT CHAIR CPT-74268 Venipuncture Draw Fee 09:02:51 COMMUNICATIONS DEPARTMENT CHAIR CPT-88993 Venipuncture Draw Fee 12:45:08 COMMUNICATIONS DEPARTMENT CHAIR CPT-98762 Venipuncture Draw Fee 09:25:31 CDT CPT-G0008 Administration of Influenza Virus Vaccine 14:41:29 CDT CPT-41781 Fluzone High-Dose Intramuscular Suspension 14:41:29 CDT CPT-Cryo Cryotherapy 11:48:20 CDT CPT-45907 EKG Trac and Interp 09:21:58 CDT CPT-47909 Chest 2V Frontal and Lat 09:21:58 CDT CPT-Cryo Cryotherapy 10:54:51 COMMUNICATIONS DEPARTMENT CHAIR CPT-40332 Administration 2+ single or combination vaccines inc oral 10:42:19 CDT CPT-86075 Administration single or combination vaccine inc oral 10 :42:19 CDT CPT-49871 Pneumovax 10:42:19 CDT CPT-24541 Influenza High Dose age 65+ 10:42:19 CDT CPT-79768 Administration single or combination vaccine inc oral 13 :18:54 CDT CPT-46115 Influenza High Dose age 65+ 13:18:54 CDT CPT-29626 Venipuncture Draw Fee 11:53:16 CDT CPT-28806 LS spine comp w obliq 11:03:13 CDT CPT-Cryo Cryotherapy 08:27:16 COMMUNICATIONS DEPARTMENT CHAIR CPT-72525 Administration single or combination vaccine inc oral 10 :56:34 CDT CPT-27967 Influenza High Dose age 65+ 10:56:34 CDT
--- OUTSIDE RECORDS SUMMARY | 2018-03-31 17:08 | XMS REPORT | Clinical Summary ---
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 Kerry Castillo MD Steroid use, manager intermediate ICD-V58.65 Kerry Castillo MD Hand pain, bilateral [...] ORAL TABS 1 po qd PIOGLITAZONE HCL 64323993744 Active Simon Castillo MD Active GLIMEPIRIDE 4 MG ORAL TABS 1 po BID GLIMEPIRIDE 17833428807 Active Simon Castillo MD Active ASPIRIN EC 81 MG ORAL TBEC 1 po qd ASPIRIN 45814445112 Active Simon Castillo MD Active CLOTRIMAZOLE 1 % EXT CREA Apply to affected area of feet twice daily PRN Rash CLOTRIMAZOLE 68311927836 No Longer Active Simon Castillo MD Active PREDNISONE 5 MG TAB 1 po BID PREDNISONE 59652143331 Active Simon Castillo MD Active FISH OIL 1000 MG CPDR 1 po BID OMEGA-3 FATTY ACIDS 64554181969 Active Simon Castillo MD Active LISINOPRIL 10 MG TABS 1 p qd LISINOPRIL 62370057981 Active Simon Castillo MD Active CLARITIN 10 MG TAB 1 tablet by mouth daily as needed for allergies LORATADINE 66494279657 No Longer Active Simon Castillo MD Active TRIAMCINOLONE ACETONIDE 0.1 % OINT Apply to affected areas TID for up to 2 weeks TRIAMCINOLONE ACETONIDE 04127457661 No Longer Active Simon Castillo MD Active LASIX 20 MG TAB 1 tablet by mouth daily x 2 days FUROSEMIDE 02050381632 No Longer Active Simon Castillo MD Active SULFASALAZINE 500 MG ORAL TBEC 2 tabs BID SULFASALAZINE 14052709085 No Longer Active Neto Oshea DO Active PREDNISONE 20 MG TAB 2 tabs daily for 3 days, 1 tab daily for 3 days, 1/2 tab daily for 2 days PREDNISONE 28022923637 No Longer Active 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 ELECTRONICS ENGINEERING TECHNICIAN Active PREDNISONE 20 MG TAB 1 tablet daily for airway inflammation 02/25 PREDNISONE 09262828133 No Longer Active 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 ELECTRONICS ENGINEERING TECHNICIAN Active AZITHROMYCIN 250 MG TABS 2 po qd x 1 day, then 1 po qd x 4 days AZITHROMYCIN 20032805425 No Longer Active 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 ELECTRONICS ENGINEERING TECHNICIAN Active HYDROCODONE-ACETAMINOPHEN 5-325 MG TABS 1 tab by mouth 8 hours as needed for pain HYDROCODONE-ACETAMINOPHEN 35166980142 Active Simon Castillo MD Active TRAMADOL HCL 50 MG TABS 1 po q6hr PRN Pain TRAMADOL HCL 55594553657 No Longer Active Simon Castillo MD Active PREDNISONE 5 MG TABS 1 po qod PREDNISONE 17849782768 No Longer Active Simon Castillo MD Active SYMBICORT 160-4.5 MCG/ACT AERO 2 puff BID BUDESONIDE- FORMOTEROL FUMARATE 42715372133 No Longer Active Simon Castillo MD Active FLONASE 50 MCG/ACT SUSP 2 puffs in each nostril daily FLUTICASONE PROPIONATE 00902497201 No Longer Active Simon Castillo MD Active PREDNISONE 20 MG TAB 2 tabs daily for 5 days, then 1 daily for 5 days PREDNISONE 13849644409 No Longer Active Simon Castillo MD Active PREDNISONE 20 MG TAB 2 tabs daily for 5 days, then 1 daily for 5 days, then 0.5 for 4 days PREDNISONE 78603204095 No Longer Active Simon Castillo MD Active PREDNISONE 20 MG TAB 2 tabs daily for 3 days, 1 tab daily for 3 days, 1/2 tab daily for 2 days PREDNISONE 06691939012 No Longer Active Simon Castillo MD Active AZITHROMYCIN 250 MG TABS 2 po qd x 1 day, then 1 po qd x 4 days AZITHROMYCIN 51546343600 No Longer Active Simon Castillo MD Active CARVEDILOL 6.25 MG TABS 1 po BID CARVEDILOL 78780681042 Active Simon Castillo MD Active LISINOPRIL-HYDROCHLOROTHIAZIDE 20-12.5 MG TABS 1/2 tab by mouth daily LISINOPRIL-HYDROCHLOROTHIAZIDE 56711417103 No Longer Active Simon Castillo MD Active TRAMADOL HCL 50 MG TABS 1-2 tablets every 6 hours as needed for pain TRAMADOL HCL 30975079415 Active Giles Tatum APRN Active PREDNISONE 5 MG TAB Take one po qod PREDNISONE 67358357323 No Longer Active Simon Castillo MD Active GLYBURIDE 5 MG TAB Take one by mouth daily GLYBURIDE 81616490262 No Longer Active Simon Castillo MD Active LEVAQUIN 750 MG TABS 1 po qod x 5 doses LEVOFLOXACIN 59192266418 No Longer Active Simon Castillo MD Active CETIRIZINE HCL 10 MG TABS 1 po qd as needed for allergies CETIRIZINE HCL 90536092547 No Longer Active Simon Castillo MD Active BILBERRY CAPS 1 tab daily BILBERRY (VACCINIUM MYRTILLUS) CAPS 47622113048 Active Simon Castillo MD Active ATENOLOL 50 MG TABS Take one by mouth daily ATENOLOL 26705851329 No Longer Active Simon Castillo MD Active FLONASE 50 MCG/ACT SUSP 2 puffs in each nostril daily FLUTICASONE PROPIONATE 45728197434 No Longer Active Simon Castillo MD Active GLYBURIDE 5 MG TAB Take one by mouth daily GLYBURIDE 73840430283 No Longer Active Simon Castillo MD Active SYMBICORT 80-4.5 MCG/ACT AERO 2 puffs twice a day BUDESONIDE-FORMOTEROL FUMARATE 30329980417 No Longer Active Simon Castillo MD Active PREDNISONE 20 MG TAB 2 tabs daily for 4 days, 1 tab daily for 4 days, 1/2 tab daily for 4 days PREDNISONE 38434902320 No Longer Active Simon Castillo MD Active AMOXICILLIN 500 MG CAPS 2 po BID x 10 days AMOXICILLIN 63724257689 No Longer Active Simon Castillo MD Active METFORMIN HCL 1000 MG TABS 1 by mounth twice a day METFORMIN HCL 96717632102 No Longer Active Simon Castillo MD Active LUTEIN-ZEAXANTHIN 6-1 MG TABS Take 2 by mouth daily LUTEIN-ZEAXANTHIN 26151730026 Active Simon Castillo MD Active IBUPROFEN 800 MG TABS Take 1 tab every 6 hrs prn IBUPROFEN 05254239194 No Longer Active Simon Castillo MD Active GLYBURIDE 2.5 MG TABS Take one by mouth daily GLYBURIDE 02137860650 No Longer Active Simon Castillo MD Active LANCETS MISC 2 qd LANCETS 93954331596 Active Pamela Conde Active ACACIA CONTOUR TEST STRP Use with testing twice daily GLUCOSE BLOOD 79009242781 Active Simon Castillo MD Active GLYBURIDE 2.5 MG TABS Take one by mouth daily GLYBURIDE 2.5 MG TABS 981282 GLYBURIDE Inactive PREDNISONE 20 MG TAB 2 tabs daily for 4 days, 1 tab daily for 4 days, 1/2 tab daily for 4 days PREDNISONE 20 MG TAB 412403 PREDNISONE Inactive SYMBICORT 80-4.5 MCG/ACT AERO 2 puffs twice a day SYMBICORT 80-4.5 MCG/ACT AERO BUDESONIDE-FORMOTEROL FUMARATE Inactive FLONASE 50 MCG/ACT SUSP 2 puffs in each nostril daily FLONASE 50 MCG/ACT SUSP 8108083 FLUTICASONE PROPIONATE Inactive ATENOLOL 50 MG TABS Take one by mouth daily ATENOLOL 50 MG TABS 146507 ATENOLOL Inactive CETIRIZINE HCL 10 MG TABS 1 po qd as needed for allergies CETIRIZINE HCL 10 MG TABS 8337223 CETIRIZINE HCL Inactive LEVAQUIN 750 MG TABS 1 po qod x 5 doses LEVAQUIN 750 MG TABS 230148 LEVOFLOXACIN Inactive GLYBURIDE 5 MG TAB Take one by mouth daily GLYBURIDE 5 MG TAB 916602 GLYBURIDE Inactive PREDNISONE 5 MG TAB Take one po qod PREDNISONE 5 MG TAB 067007 PREDNISONE Inactive PREDNISONE 20 MG TAB 2 tabs daily for 5 days, then 1 daily for 5 days PREDNISONE 20 MG TAB 066233 PREDNISONE Inactive FLONASE 50 MCG/ACT SUSP 2 puffs in each nostril daily FLONASE 50 MCG/ACT SUSP 3180432 FLUTICASONE PROPIONATE Inactive SYMBICORT 160-4.5 MCG/ACT AERO 2 puff BID SYMBICORT 160-4.5 MCG/ACT AERO BUDESONIDE-FORMOTEROL FUMARATE Inactive PREDNISONE 5 MG TABS 1 po qod PREDNISONE 5 MG TABS 657198 PREDNISONE Inactive PREDNISONE 20 MG TAB 1 tablet daily for airway inflammation 02/25 PREDNISONE 20 MG TAB 000795 PREDNISONE Inactive SULFASALAZINE 500 MG ORAL TBEC 2 tabs BID SULFASALAZINE 500 MG ORAL TBEC 974723 SULFASALAZINE Inactive LASIX 20 MG TAB 1 tablet by mouth daily x 2 days LASIX 20 MG TAB 399000 FUROSEMIDE Inactive CLARITIN 10 MG TAB 1 tablet by mouth daily as needed for allergies CLARITIN 10 MG TAB 743435 LORATADINE Inactive CLOTRIMAZOLE 1 % EXT CREA Apply to affected area of feet twice daily PRN Rash CLOTRIMAZOLE 1 % EXT CREA 624709 CLOTRIMAZOLE Inactive AMOXICILLIN 500 MG CAPS 2 po BID x 10 days AMOXICILLIN 500 MG CAPS 475411 AMOXICILLIN Inactive GLYBURIDE 5 MG TAB Take one by mouth daily GLYBURIDE 5 MG TAB 697386 GLYBURIDE Inactive AZITHROMYCIN 250 MG TABS 2 po qd x 1 day, then 1 po qd x 4 days AZITHROMYCIN 250 MG TABS 8973508 AZITHROMYCIN Inactive PREDNISONE 20 MG TAB 2 tabs daily for 3 days, 1 tab daily for 3 days, 1/2 tab daily for 2 days PREDNISONE 20 MG TAB 597670 PREDNISONE Inactive PREDNISONE 20 MG TAB 2 tabs daily for 5 days, then 1 daily for 5 days, then 0.5 for 4 days PREDNISONE 20 MG TAB 063975 PREDNISONE Inactive AZITHROMYCIN 250 MG TABS 2 po qd x 1 day, then 1 po qd x 4 days AZITHROMYCIN 250 MG TABS 6913111 AZITHROMYCIN Inactive PREDNISONE 20 MG TAB 2 tabs daily for 3 days, 1 tab daily for 3 days, 1/2 tab daily for 2 days PREDNISONE 20 MG TAB 168589 PREDNISONE Inactive TRIAMCINOLONE ACETONIDE 0.1 % OINT Apply to affected areas TID for up to 2 weeks TRIAMCINOLONE ACETONIDE 0.1 % OINT 0521327 TRIAMCINOLONE ACETONIDE Inactive Immunizations Vaccine Administration Date [...] Panel - Chemistry cholesterol, serum 126 mg/dL [phone]/02/07 triglyceride, serum, fasting 83 mg/dL 30-200 HDL cholesterol, serum 70 mg/dL 32-96 LDL cholesterol, serum 39 mg/dL 0-130 hemoglobin A1C, blood, as % of total hemoglobin 8.3 % 4.3-6.0 sodium, serum 141 mmol/L 877-740 2069/02/07 carbon dioxide, venous blood 26.0 mmol/L 21.0-32.0 [...] 0.00-1.00 Encounters Code Encounter Date Provider Facility CPT-92199 Level 4 Est. Patient 09:54:08 CDT Simon Castillo MD [facility] CPT-23187 Level 4 Est. Patient 16:11:23 CDT Simon Castillo MD [facility] CPT-02855 Level 4 Est. Patient 09:29:28 HORSE SHOW JUDGE Simon Castillo MD [facility] CPT-07937 Level 3 Est. Patient 09:18:25 CDT Simon Castillo MD [facility] CPT-68760 Level 4 Est. Patient 11:51:23 CDT Simon Castillo MD [facility] CPT-16688 Level 4 Est. Patient 14:32:04 CDT Neto Oshea DO [facility] CPT-42212 Level 3 Est. Patient 08:41:43 CDT Giles Tatum [facility][note 3] CPT-92748 Level 3 Est. Patient 08:40:53 CDT Giles Salcidol [facility][note 3] CPT-04327 Level 3 Est. Patient 08:36:52 CDT Giles Salcidol [facility][note 3] CPT-45427 Level 3 Est. Patient 09:08:44 CDT Giles Salcidol [facility][note 3] CPT-60379 Level 4 Est. Patient 09:17:32 HORSE SHOW JUDGE Simon Castillo MD [facility] CPT-67953 Level 3 Est. Patient 11:22:22 HORSE SHOW JUDGE Simon Castillo MD [facility] CPT-18798 Level 3 Est. Patient 09:02:14 CDT Simon Castillo MD [facility] CPT-75814 Level 4 Est. Patient 08:47:25 CDT Simon Castillo MD [facility] CPT-39494 Level 4 Est. Patient 10:17:25 CDT Simon Castillo MD [facility] CPT-04876 Level 4 Est. Patient 10:10:09 HORSE SHOW JUDGE Simon Castillo MD [facility] CPT-13787 Level 4 Est. Patient 11:48:19 CDT Simon Castillo MD [facility] CPT-84674 Level 4 Est. Patient 08:59:29 CDT Simon Castillo MD [facility] CPT-25348 Level 4 Est. Patient 10:52:51 HORSE SHOW JUDGE Simon Castillo MD [facility] CPT-55850 Level 4 Est. Patient 11:50:30 CDT Simon Castillo MD [facility] CPT-22339 Level 4 Est. Patient 09:54:46 CDT Simon Castillo MD [facility] CPT-57446 Level 3 Est. Patient 11:10:14 CDT Simon Castillo MD [facility] CPT-78065 Level 4 Est. Patient 09:44:02 CDT Simon Castillo MD [facility] CPT-96050 Level 3 Est. Patient 09:27:48 CDT Simon Castillo MD [facility] CPT-40687 Level 3 Est. Patient 09:58:06 HORSE SHOW JUDGE Simon Castillo MD [facility] CPT-55478 Level 3 Est. Patient 09:51:35 CDT Simon Castillo MD [facility] Procedures Code Procedure Name Date Entry Date Standard Description CPT-G0439 Subsequent Annual Wellness Exam 09:41:17 CDT CPT-03914 Lipid - LAB USE ONLY 17:15:33 CDT CPT-59167 HGBA1C - LAB USE ONLY 17:15:33 CDT CPT-10856 CMP - LAB USE ONLY 17:15:33 CDT CPT-58620 Venipuncture Draw Fee 17:15:33 CDT CPT-[facility] Transitional Care Mgmt-High 11:01:28 HORSE SHOW JUDGE CPT-16182 First Vx - Ix admin for Medicare patients 17:33:39 CDT CPT-20813 Fluzone High-Dose Intramuscular Suspension 17:33:39 CDT CPT-G0438 Initial Annual Wellness Exam 08:57:30 CDT CPT-68554 Chest 2V Frontal and Lat - XRAY USE ONLY 09:00:14 CDT CPT-22450 Venipuncture Draw Fee 13:33:02 CDT CPT-16922 Bone Density 09:37:49 HORSE SHOW JUDGE CPT-44173 Fluzone High Dose 17:20:42 CDT CPT-75513 Prevnar 13 17:20:42 CDT CPT-05156 Administration 2+ single or combination vaccines inc oral 17:20:42 CDT CPT-99701 Administration single or combination vaccine inc oral 17 :20:42 CDT CPT-15198 Hand comp min 3V 09:24:38 CDT CPT-01818 Venipuncture Draw Fee 08:07:29 HORSE SHOW JUDGE CPT-17425 Venipuncture Draw Fee 09:02:51 HORSE SHOW JUDGE CPT-72924 Venipuncture Draw Fee 12:45:08 HORSE SHOW JUDGE CPT-25343 Venipuncture Draw Fee 09:25:31 CDT CPT-G0008 Administration of Influenza Virus Vaccine 14:41:29 CDT CPT-38755 Fluzone High-Dose Intramuscular Suspension 14:41:29 CDT CPT-Cryo Cryotherapy 11:48:20 CDT CPT-56164 EKG Trac and Interp 09:21:58 CDT CPT-98480 Chest 2V Frontal and Lat 09:21:58 CDT CPT-Cryo Cryotherapy 10:54:51 HORSE SHOW JUDGE CPT-26342 Administration 2+ single or combination vaccines inc oral 10:42:19 CDT CPT-82176 Administration single or combination vaccine inc oral 10 :42:19 CDT CPT-14458 Pneumovax 10:42:19 CDT CPT-76426 Influenza High Dose age 65+ 10:42:19 CDT CPT-43657 Administration single or combination vaccine inc oral 13 :18:54 CDT CPT-58702 Influenza High Dose age 65+ 13:18:54 CDT CPT-47457 Venipuncture Draw Fee 11:53:16 CDT CPT-60510 LS spine comp w obliq 11:03:13 CDT CPT-Cryo Cryotherapy 08:27:16 HORSE SHOW JUDGE CPT-05266 Administration single or combination vaccine inc oral 10 :56:34 CDT CPT-20751 Influenza High Dose age 65+ 10:56:34 CDT
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
--- OUTSIDE RECORDS SUMMARY | 2018-03-31 17:11 | XMS REPORT | Clinical Summary ---
Author Author Admin, E Organization [employer] Address Unknown Phone Unavailable Allergies, Adverse Reactions, [...] Steroid use, long term care pharmacist V58.65 Resolved Simon Castillo MD Long-term (current) [...] Castillo MD Steroid use, senior living ICD-V58.65 Inactive Simon Castillo MD Hand pain, [...] 1 po qd PRN Asthma/Allergies MONTELUKAST SODIUM 91637379591 Active Simon Castillo MD Active PROMETHAZINE-CODEINE 6.25-10 MG/5ML ORAL SYRUP 5ml po qHS PRN Cough PROMETHAZINE-CODEINE 07288554641 Active Simon Castillo MD Active AZITHROMYCIN 250 MG ORAL TABLET 2 po qd x 1, then 1 po qd x 4 AZITHROMYCIN 29443070659 Active Simon Castillo MD Active PREDNISONE 20 MG ORAL TABLET 2 po qd x 5 days PREDNISONE 63321869014 No Longer Active Simon Castillo MD Active VIAGRA 100 MG ORAL TABLET 0.5 to 1 po qd PRN Erectile dysfunction SILDENAFIL CITRATE 29414456663 Active Simon Castillo MD Active LUTEIN-ZEAXANTHIN 6-1 MG ORAL TABLET 2 po qd LUTEIN- ZEAXANTHIN 93978394341 Active Simon Castillo MD Active BILBERRY CAPSULE 1 po qd BILBERRY (VACCINIUM MYRTILLUS) CAPS 30255399183 Active Simon Castillo MD Active TRAMADOL HCL 50 MG ORAL TABLET 1-2 tablets every 6 hours as needed for pain TRAMADOL HCL 51179306585 No Longer Active Simon Castillo MD Active HYDROCODONE-ACETAMINOPHEN 5-325 MG ORAL TABLET 1 tab by mouth 8 hours as needed for pain HYDROCODONE-ACETAMINOPHEN 40429946052 No Longer Active Simon Castillo MD Active BUMETANIDE 0.5 MG ORAL TABLET 1 po qd BUMETANIDE 22037085644 Active Smion Castillo MD Active AUGMENTIN 875-125 MG ORAL TABLET 1 po BID x 10 days AMOXICILLIN-POT CLAVULANATE 34759948149 No Longer Active Simon Castillo MD Active PIOGLITAZONE HCL 30 MG ORAL TABLET 1 po qd PIOGLITAZONE HCL 42867860227 Active Simon Castillo MD Active GLIMEPIRIDE 4 MG ORAL TABLET 1 po BID GLIMEPIRIDE 50019164881 Active Simon Castillo MD Active ASPIRIN EC 81 MG ORAL TABLET DELAYED RELEASE 1 po qd ASPIRIN 77690636036 Active Simon Castillo MD Active CLOTRIMAZOLE 1 % EXTERNAL CREAM Apply to affected area of feet twice daily PRN Rash CLOTRIMAZOLE 90612649001 No Longer Active Simon Castillo MD Active PREDNISONE 5 MG ORAL TABLET 1 po BID PREDNISONE 03361996336 Active Dolly MCDERMOTT Active FISH OIL 1000 MG ORAL CAPSULE DELAYED RELEASE 1 po BID OMEGA- 3 FATTY ACIDS 02434139862 Active Simon Castillo MD Active LISINOPRIL 10 MG ORAL TABLET 1 p qd LISINOPRIL 96982296962 Active Simon Castillo MD Active CLARITIN 10 MG ORAL TABLET 1 tablet by mouth daily as needed for allergies LORATADINE 35780191230 No Longer Active Simon Castillo MD Active TRIAMCINOLONE ACETONIDE 0.1 % EXTERNAL OINTMENT Apply to affected areas TID for up to 2 weeks TRIAMCINOLONE ACETONIDE 23156135716 No Longer Active Simon Castillo MD Active LASIX 20 MG ORAL TABLET 1 tablet by mouth daily x 2 days FUROSEMIDE 60818965627 No Longer Active Simon Castillo MD Active SULFASALAZINE 500 MG ORAL TABLET DELAYED RELEASE 2 tabs BID 02/26 SULFASALAZINE 25948949236 No Longer Active Neto Oshea DO Active PREDNISONE 20 MG ORAL TABLET 2 tabs daily for 3 days, 1 tab daily for 3 days, 1/2 tab daily for 2 days PREDNISONE 82179252699 No Longer Active Giles Tatum APRN Active PREDNISONE 20 MG ORAL TABLET 1 tablet daily for airway inflammation PREDNISONE 21073816367 No Longer Active Giles Tatum APRN Active AZITHROMYCIN 250 MG ORAL TABLET 2 po qd x 1 day, then 1 po qd x 4 days 01/28 AZITHROMYCIN 74833996456 No Longer Active Giles Tatum APRN Active TRAMADOL HCL 50 MG ORAL TABLET 1 po q6hr PRN Pain TRAMADOL HCL 71718768093 No Longer Active Simon Castillo MD Active PREDNISONE 5 MG ORAL TABLET 1 po qod PREDNISONE 15963674722 No Longer Active Simon Castillo MD Active SYMBICORT 160-4.5 MCG/ACT INHALATION AEROSOL 2 puff BID BUDESONIDE-FORMOTEROL FUMARATE 41272306749 No Longer Active Simon Castillo MD Active FLONASE 50 MCG/ACT NASAL SUSPENSION 2 puffs in each nostril daily FLUTICASONE PROPIONATE 03156644102 No Longer Active Simon Castillo MD Active PREDNISONE 20 MG ORAL TABLET 2 tabs daily for 5 days, then 1 daily for 5 days PREDNISONE 12818830317 No Longer Active Simon Castillo MD Active PREDNISONE 20 MG ORAL TABLET 2 tabs daily for 5 days, then 1 daily for 5 days , then 0.5 for 4 days PREDNISONE 37262888552 No Longer Active Simon Castillo MD Active PREDNISONE 20 MG ORAL TABLET 2 tabs daily for 3 days, 1 tab daily for 3 days, 1/2 tab daily for 2 days PREDNISONE 49743667094 No Longer Active Simon Castillo MD Active AZITHROMYCIN 250 MG ORAL TABLET 2 po qd x 1 day, then 1 po qd x 4 days 03/16 AZITHROMYCIN 56385118003 No Longer Active Simon Castillo MD Active CARVEDILOL 6.25 MG ORAL TABLET 1 po BID CARVEDILOL 46488909329 Active Simon Castillo MD Active LISINOPRIL-HYDROCHLOROTHIAZIDE 20-12.5 MG ORAL TABLET 1/2 tab by mouth daily LISINOPRIL-HYDROCHLOROTHIAZIDE 30360280910 No Longer Active Simon Castillo MD Active PREDNISONE 5 MG ORAL TABLET Take one po qod PREDNISONE 12858444835 No Longer Active Simon Castillo MD Active GLYBURIDE 5 MG ORAL TABLET Take one by mouth daily GLYBURIDE 86015291989 No Longer Active Simon Castillo MD Active LEVAQUIN 750 MG ORAL TABLET 1 po qod x 5 doses LEVOFLOXACIN 02688681185 No Longer Active Simon Castillo MD Active CETIRIZINE HCL 10 MG ORAL TABLET 1 po qd as needed for allergies CETIRIZINE HCL 82676873070 No Longer Active Simon Castillo MD Active ATENOLOL 50 MG ORAL TABLET Take one by mouth daily ATENOLOL 03966822368 No Longer Active Simon Castillo MD Active FLONASE 50 MCG/ACT NASAL SUSPENSION 2 puffs in each nostril daily FLUTICASONE PROPIONATE 85169078462 No Longer Active Simon Castillo MD Active GLYBURIDE 5 MG ORAL TABLET Take one by mouth daily GLYBURIDE 23403261413 No Longer Active Simon Castillo MD Active SYMBICORT 80-4.5 MCG/ACT INHALATION AEROSOL 2 puffs twice a day BUDESONIDE-FORMOTEROL FUMARATE 87340732564 No Longer Active Simon Castillo MD Active PREDNISONE 20 MG ORAL TABLET 2 tabs daily for 4 days, 1 tab daily for 4 days, 1/2 tab daily for 4 days PREDNISONE 54361091144 No Longer Active Simon Castillo MD Active AMOXICILLIN 500 MG ORAL CAPSULE 2 po BID x 10 days AMOXICILLIN 10729862064 No Longer Active Simon Castillo MD Active METFORMIN HCL 1000 MG ORAL TABLET 1 by [facility] twice a day METFORMIN HCL 67555800904 No Longer Active Simon Castillo MD Active IBUPROFEN 800 MG ORAL TABLET Take 1 tab every 6 hrs prn IBUPROFEN 72419826399 No Longer Active Simon Castillo MD Active GLYBURIDE 2.5 MG ORAL TABLET Take one by mouth daily GLYBURIDE 67888276495 No Longer Active Simon Castillo MD Active LANCETS 2 qd LANCETS 91073549028 Active Pamela Conde Active ACACIA CONTOUR TEST IN VITRO STRIP Use with testing twice daily GLUCOSE BLOOD 63534924529 Active Simon Castillo MD Active GLYBURIDE 2.5 MG ORAL TABLET Take one by mouth daily GLYBURIDE 2.5 MG ORAL TABLET 709800 GLYBURIDE Inactive PREDNISONE 20 MG ORAL TABLET 2 tabs daily for 4 days, 1 tab daily for 4 days, 1/2 tab daily for 4 days PREDNISONE 20 MG ORAL TABLET 511081 PREDNISONE Inactive SYMBICORT 80-4.5 MCG/ACT INHALATION AEROSOL 2 puffs twice a day SYMBICORT 80-4.5 MCG/ACT INHALATION AEROSOL BUDESONIDE- FORMOTEROL FUMARATE Inactive FLONASE 50 MCG/ACT NASAL SUSPENSION 2 puffs in each nostril daily FLONASE 50 MCG/ACT NASAL SUSPENSION 3948739 FLUTICASONE PROPIONATE Inactive ATENOLOL 50 MG ORAL TABLET Take one by mouth daily ATENOLOL 50 MG ORAL TABLET 136885 ATENOLOL Inactive CETIRIZINE HCL 10 MG ORAL TABLET 1 po qd as needed for allergies CETIRIZINE HCL 10 MG ORAL TABLET 4026717 CETIRIZINE HCL Inactive LEVAQUIN 750 MG ORAL TABLET 1 po qod x 5 doses LEVAQUIN 750 MG ORAL TABLET 714894 LEVOFLOXACIN Inactive GLYBURIDE 5 MG ORAL TABLET Take one by mouth daily GLYBURIDE 5 MG ORAL TABLET 402162 GLYBURIDE Inactive PREDNISONE 5 MG ORAL TABLET Take one po qod PREDNISONE 5 MG ORAL TABLET 890050 PREDNISONE Inactive PREDNISONE 20 MG ORAL TABLET 2 tabs daily for 5 days, then 1 daily for 5 days PREDNISONE 20 MG ORAL TABLET 091950 PREDNISONE Inactive FLONASE 50 MCG/ACT NASAL SUSPENSION 2 puffs in each nostril daily FLONASE 50 MCG/ACT NASAL SUSPENSION 7258282 FLUTICASONE PROPIONATE Inactive SYMBICORT 160-4.5 MCG/ACT INHALATION AEROSOL 2 puff BID SYMBICORT 160-4.5 MCG/ACT INHALATION AEROSOL BUDESONIDE-FORMOTEROL FUMARATE Inactive PREDNISONE 5 MG ORAL TABLET 1 po qod PREDNISONE 5 MG ORAL TABLET 711858 PREDNISONE Inactive PREDNISONE 20 MG ORAL TABLET 1 tablet daily for airway inflammation PREDNISONE 20 MG ORAL TABLET 382894 PREDNISONE Inactive SULFASALAZINE 500 MG ORAL TABLET DELAYED RELEASE 2 tabs BID 02/26 SULFASALAZINE 500 MG ORAL TABLET DELAYED RELEASE 422182 SULFASALAZINE Inactive LASIX 20 MG ORAL TABLET 1 tablet by mouth daily x 2 days LASIX 20 MG ORAL TABLET 439342 FUROSEMIDE Inactive CLARITIN 10 MG ORAL TABLET 1 tablet by mouth daily as needed for allergies CLARITIN 10 MG ORAL TABLET 319657 LORATADINE Inactive CLOTRIMAZOLE 1 % EXTERNAL CREAM Apply to affected area of feet twice daily PRN Rash CLOTRIMAZOLE 1 % EXTERNAL CREAM 776198 CLOTRIMAZOLE Inactive HYDROCODONE-ACETAMINOPHEN 5-325 MG ORAL TABLET 1 tab by mouth 8 hours as needed for pain HYDROCODONE-ACETAMINOPHEN 5-325 MG ORAL TABLET 959523 HYDROCODONE-ACETAMINOPHEN Inactive TRAMADOL HCL 50 MG ORAL TABLET 1-2 tablets every 6 hours as needed for pain TRAMADOL HCL 50 MG ORAL TABLET 854417 TRAMADOL HCL Inactive AMOXICILLIN 500 MG ORAL CAPSULE 2 po BID x 10 days AMOXICILLIN 500 MG ORAL CAPSULE 693762 AMOXICILLIN Inactive GLYBURIDE 5 MG ORAL TABLET Take one by mouth daily GLYBURIDE 5 MG ORAL TABLET 203694 GLYBURIDE Inactive AZITHROMYCIN 250 MG ORAL TABLET 2 po qd x 1 day, then 1 po qd x 4 days 03/16 AZITHROMYCIN 250 MG ORAL TABLET 459818 AZITHROMYCIN Inactive PREDNISONE 20 MG ORAL TABLET 2 tabs daily for 3 days, 1 tab daily for 3 days, 1/2 tab daily for 2 days PREDNISONE 20 MG ORAL TABLET 782370 PREDNISONE Inactive PREDNISONE 20 MG ORAL TABLET 2 tabs daily for 5 days, then 1 daily for 5 days , then 0.5 for 4 days PREDNISONE 20 MG ORAL TABLET 442794 PREDNISONE Inactive AZITHROMYCIN 250 MG ORAL TABLET 2 po qd x 1 day, then 1 po qd x 4 days 01/28 AZITHROMYCIN 250 MG ORAL TABLET 084733 AZITHROMYCIN Inactive PREDNISONE 20 MG ORAL TABLET 2 tabs daily for 3 days, 1 tab daily for 3 days, 1/2 tab daily for 2 days PREDNISONE 20 MG ORAL TABLET 233070 PREDNISONE Inactive TRIAMCINOLONE ACETONIDE 0.1 % EXTERNAL OINTMENT Apply to affected areas TID for up to 2 weeks TRIAMCINOLONE ACETONIDE 0.1 % EXTERNAL OINTMENT 7134846 TRIAMCINOLONE ACETONIDE Inactive AUGMENTIN 875-125 MG ORAL TABLET 1 po BID x 10 days AUGMENTIN 875-125 MG ORAL TABLET 161691 AMOXICILLIN-POT CLAVULANATE Inactive PREDNISONE 20 MG ORAL TABLET 2 po qd x 5 days PREDNISONE 20 MG ORAL TABLET 723306 PREDNISONE Inactive Immunizations Vaccine Administration Date Value [...] Peptide - Chemistry sodium, serum 142 mmol/L 730-751 4993/07/18 potassium, serum 5.0 mmol/L 3.5-5.2 chloride, serum [...] Rate - Chemistry sodium, serum 142 mmol/L 806-473 6654/02/27 carbon dioxide, venous blood 26.2 mmol/L 21.0-32.0 [...] Panel - Chemistry sodium, serum 140 mmol/L 355-089 2113/07/13 carbon dioxide, venous blood 23.7 mmol/L 21.0-32.0 [...] dipstick Negative Negative sodium, serum 142 mmol/L 683-616 7785/01/08 carbon dioxide, venous blood 23.9 mmol/L 21.0-32.0 [...] Negative;Positive Encounters Code Encounter Date Provider Facility CPT-73353 Level 3 Est. Patient 11:36:15 CDT Simon Castillo MD [facility] CPT-29290 Level 4 Est. 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 Patient 12:04:38 HYPERBARIC WELDER DIVER Giles Tatum [facility] CPT-78102 Level 3 Est. Patient 11:57:09 HYPERBARIC WELDER DIVER Giles Tatum [facility] CPT-46087 Level 3 Est. Patient 11:48:57 HYPERBARIC WELDER DIVER Giles Tatum [facility] CPT-53473 Level 4 Est. Patient 09:54:36 CDT Simon Castillo MD [facility] CPT-31313 Level 4 Est. Patient 08:48:38 CDT Simon Castillo MD [facility] CPT-48908 Level 4 Est. Patient 09:54:08 CDT Simon Castillo MD [facility] CPT-56371 Level 4 Est. Patient 16:11:23 CDT Simon Castillo MD [facility] CPT-58870 Level 4 Est. Patient 09:29:28 HYPERBARIC WELDER DIVER Simon Castillo MD [facility] CPT-49900 Level 3 Est. Patient 09:18:25 CDT Simon Castillo MD [facility] CPT-90845 Level 4 Est. Patient 11:51:23 CDT Simon Castillo MD [facility] CPT-07760 Level 4 Est. Patient 14:32:04 CDT Neto Oshea DO [facility] CPT-49252 Level 3 Est. Patient 08:41:43 CDT Giles Tatum [facility] CPT-54519 Level 3 Est. Patient 08:40:53 CDT Jillina Nashzell [facility] CPT-20170 Level 3 Est. Patient 08:36:52 CDT Jilltriston Salcidol [facility] CPT-65570 Level 3 Est. Patient 09:08:44 CDT Jillina Lolyl [facility] CPT-42264 Level 4 Est. Patient 09:17:32 HYPERBARIC WELDER DIVER Simon Castillo MD [facility] CPT-74891 Level 3 Est. Patient 11:22:22 HYPERBARIC WELDER DIVER Simon Castillo MD [facility] CPT-32819 Level 3 Est. Patient 09:02:14 CDT Simon Castillo MD [facility] CPT-22281 Level 4 Est. Patient 08:47:25 CDT Simon Castillo MD [facility] CPT-41285 Level 4 Est. Patient 10:17:25 CDT Simon Castillo MD [facility] CPT-17424 Level 4 Est. Patient 10:10:09 HYPERBARIC WELDER DIVER Simon Castillo MD [facility] CPT-44725 Level 4 Est. Patient 11:48:19 CDT Simon Castillo MD [facility] CPT-25893 Level 4 Est. Patient 08:59:29 CDT Simon Castillo MD [facility] CPT-36048 Level 4 Est. Patient 10:52:51 HYPERBARIC WELDER DIVER Simon Castillo MD [facility] CPT-03330 Level 4 Est. Patient 11:50:30 CDT Simon Castillo MD [facility] CPT-99412 Level 4 Est. Patient 09:54:46 CDT Simon Castillo MD [facility] CPT-95310 Level 3 Est. Patient 11:10:14 CDT Simon Castillo MD [facility] CPT-64111 Level 4 Est. Patient 09:44:02 CDT Simon Castillo MD [facility] CPT-51070 Level 3 Est. Patient 09:27:48 CDT Simon Castillo MD [facility] CPT-69800 Level 3 Est. Patient 09:58:06 HYPERBARIC WELDER DIVER Simon Castillo MD [facility] CPT-44586 Level 3 Est. Patient 09:51:35 CDT Simon Castillo MD [facility] Procedures Code Procedure Name Date Entry Date Standard Description CPT-17503 EKG Trac and Interp - XRAY USE ONLY 12:19:18 HYPERBARIC WELDER DIVER 09/29 CPT-64754 Chest, 2 views 12:19:17 HYPERBARIC WELDER DIVER CPT-Cryo Cryotherapy 09:54:37 CDT CPT-75389 First Vx - Ix admin for Medicare patients 09:13:10 CDT CPT-22206 Fluzone High-Dose Intramuscular Suspension 09:13:10 CDT CPT-G0439 Subsequent Annual Wellness Exam 09:41:17 CDT CPT-42517 Lipid - LAB USE ONLY 17:15:33 CDT CPT-00832 HGBA1C - LAB USE ONLY 17:15:33 CDT CPT-22798 CMP - LAB USE ONLY 17:15:33 CDT CPT-57651 Venipuncture Draw Fee 17:15:33 CDT CPT-TCM Transitional Care Mgmt-High 11:01:28 HYPERBARIC WELDER DIVER CPT-05568 First Vx - Ix admin for Medicare patients 17:33:39 CDT CPT-33797 Fluzone High-Dose Intramuscular Suspension 17:33:39 CDT CPT-G0438 Initial Annual Wellness Exam 08:57:30 CDT CPT-33060 Chest 2V Frontal and Lat - XRAY USE ONLY 09:00:14 CDT CPT-96681 Venipuncture Draw Fee 13:33:02 CDT CPT-00439 Bone Density 09:37:49 HYPERBARIC WELDER DIVER CPT-79550 Fluzone High Dose 17:20:42 CDT CPT-99234 Prevnar 13 17:20:42 CDT CPT-39914 Administration 2+ single or combination vaccines inc oral 17:20:42 CDT CPT-91475 Administration single or combination vaccine inc oral 17 :20:42 CDT CPT-47762 Hand comp min 3V 09:24:38 CDT CPT-96872 Venipuncture Draw Fee 08:07:29 HYPERBARIC WELDER DIVER CPT-69939 Venipuncture Draw Fee 09:02:51 HYPERBARIC WELDER DIVER CPT-95252 Venipuncture Draw Fee 12:45:08 HYPERBARIC WELDER DIVER CPT-00864 Venipuncture Draw Fee 09:25:31 CDT CPT-G0008 Administration of Influenza Virus Vaccine 14:41:29 CDT CPT-70558 Fluzone High-Dose Intramuscular Suspension 14:41:29 CDT CPT-Cryo Cryotherapy 11:48:20 CDT CPT-40189 EKG Trac and Interp 09:21:58 CDT CPT-04975 Chest 2V Frontal and Lat 09:21:58 CDT CPT-Cryo Cryotherapy 10:54:51 HYPERBARIC WELDER DIVER CPT-02796 Administration 2+ single or combination vaccines inc oral 10:42:19 CDT CPT-65968 Administration single or combination vaccine inc oral 10 :42:19 CDT CPT-80296 Pneumovax 10:42:19 CDT CPT-97178 Influenza High Dose age 65+ 10:42:19 CDT CPT-96533 Administration single or combination vaccine inc oral 13 :18:54 CDT CPT-88737 Influenza High Dose age 65+ 13:18:54 CDT CPT-83360 Venipuncture Draw Fee 11:53:16 CDT CPT-02539 LS spine comp w obliq 11:03:13 CDT CPT-Cryo Cryotherapy 08:27:16 HYPERBARIC WELDER DIVER CPT-56971 Administration single or combination vaccine inc oral 10 :56:34 CDT CPT-99050 Influenza High Dose age 65+ 10:56:34 CDT
--- OUTSIDE RECORDS SUMMARY | 2018-03-31 17:12 | XMS REPORT | Clinical Summary ---
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 ICD-V58.65 Inactive Simon Castillo MD Hand [...] MG ORAL TABS 1 po BID GLIMEPIRIDE 10547248783 Active Simon Castillo MD Active ASPIRIN EC 81 MG ORAL TBEC 1 po qd ASPIRIN 15697677853 Lin Castillo MD Active CLOTRIMAZOLE 1 % EXT CREA Apply to affected area of feet twice daily PRN Rash CLOTRIMAZOLE 46908211281 No Longer Active Simon Castillo MD Active PREDNISONE 5 MG TAB 1 po BID PREDNISONE 60694816491 Active Simon Castillo MD Active FISH OIL 1000 MG CPDR 1 po BID OMEGA-3 FATTY ACIDS 95301558277 Active Simon Castillo MD Active LISINOPRIL 10 MG TABS 1 p qd LISINOPRIL 22729082048 Active Simon Castillo MD Active CLARITIN 10 MG TAB 1 tablet by mouth daily as needed for allergies LORATADINE 94778393520 No Longer Active Simon Castillo MD Active TRIAMCINOLONE ACETONIDE 0.1 % OINT Apply to affected areas TID for up to 2 weeks TRIAMCINOLONE ACETONIDE 57539417077 No Longer Active Simon Castillo MD Active LASIX 20 MG TAB 1 tablet by mouth daily x 2 days FUROSEMIDE 64677300629 No Longer Active Simon Castillo MD Active SULFASALAZINE 500 MG ORAL TBEC 2 tabs BID SULFASALAZINE 25492233215 No Longer Active Neto Oshea DO Active PREDNISONE 20 MG TAB 2 tabs daily for 3 days, 1 tab daily for 3 days, 1/2 tab daily for 2 days PREDNISONE 26077448049 No Longer Active 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 BIOSECURITY OFFICER Active PREDNISONE 20 MG TAB 1 tablet daily for airway inflammation 02/25 PREDNISONE 37284869453 No Longer Active 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 BIOSECURITY OFFICER Active AZITHROMYCIN 250 MG TABS 2 po qd x 1 day, then 1 po qd x 4 days AZITHROMYCIN 40614281154 No Longer Active 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 BIOSECURITY OFFICER Active HYDROCODONE-ACETAMINOPHEN 5-325 MG TABS 1 tab by mouth 8 hours as needed for pain HYDROCODONE-ACETAMINOPHEN 42492462362 Active Simon Castillo MD Active TRAMADOL HCL 50 MG TABS 1 po q6hr PRN Pain TRAMADOL HCL 10583443009 No Longer Active Simon Castillo MD Active PREDNISONE 5 MG TABS 1 po qod PREDNISONE 98493770535 No Longer Active Simon Castillo MD Active SYMBICORT 160-4.5 MCG/ACT AERO 2 puff BID BUDESONIDE- FORMOTEROL FUMARATE 31651716855 No Longer Active Simon Castillo MD Active FLONASE 50 MCG/ACT SUSP 2 puffs in each nostril daily FLUTICASONE PROPIONATE 05906910516 No Longer Active Simon Castillo MD Active PREDNISONE 20 MG TAB 2 tabs daily for 5 days, then 1 daily for 5 days PREDNISONE 08472893373 No Longer Active Simon Castillo MD Active PREDNISONE 20 MG TAB 2 tabs daily for 5 days, then 1 daily for 5 days, then 0.5 for 4 days PREDNISONE 81822245632 No Longer Active Simon Castillo MD Active PREDNISONE 20 MG TAB 2 tabs daily for 3 days, 1 tab daily for 3 days, 1/2 tab daily for 2 days PREDNISONE 00954807733 No Longer Active Simon Castillo MD Active AZITHROMYCIN 250 MG TABS 2 po qd x 1 day, then 1 po qd x 4 days AZITHROMYCIN 62409551834 No Longer Active Simon Castillo MD Active CARVEDILOL 6.25 MG TABS 1 po BID CARVEDILOL 82549384967 Active Simon Castillo MD Active LISINOPRIL-HYDROCHLOROTHIAZIDE 20-12.5 MG TABS 1/2 tab by mouth daily LISINOPRIL-HYDROCHLOROTHIAZIDE 85921087040 No Longer Active Simon Castillo MD Active TRAMADOL HCL 50 MG TABS 1-2 tablets every 6 hours as needed for pain TRAMADOL HCL 78138398982 Active Giles Tatum APRN Active PREDNISONE 5 MG TAB Take one po qod PREDNISONE 82564192675 No Longer Active Simon Castillo MD Active GLYBURIDE 5 MG TAB Take one by mouth daily GLYBURIDE 45445756129 No Longer Active Simon Castillo MD Active LEVAQUIN 750 MG TABS 1 po qod x 5 doses LEVOFLOXACIN 06077629477 No Longer Active Simon Castillo MD Active CETIRIZINE HCL 10 MG TABS 1 po qd as needed for allergies CETIRIZINE HCL 00874738273 No Longer Active Simon Castillo MD Active BILBERRY CAPS 1 tab daily BILBERRY (VACCINIUM MYRTILLUS) CAPS 31193567734 Active Simon Castillo MD Active ATENOLOL 50 MG TABS Take one by mouth daily ATENOLOL 70558340519 No Longer Active Simon Castillo MD Active FLONASE 50 MCG/ACT SUSP 2 puffs in each nostril daily FLUTICASONE PROPIONATE 56260106940 No Longer Active Simon Castillo MD Active GLYBURIDE 5 MG TAB Take one by mouth daily GLYBURIDE 75915533319 No Longer Active Simon Castillo MD Active SYMBICORT 80-4.5 MCG/ACT AERO 2 puffs twice a day BUDESONIDE-FORMOTEROL FUMARATE 68531708165 No Longer Active Simon Castillo MD Active PREDNISONE 20 MG TAB 2 tabs daily for 4 days, 1 tab daily for 4 days, 1/2 tab daily for 4 days PREDNISONE 34933335722 No Longer Active Simon Castillo MD Active AMOXICILLIN 500 MG CAPS 2 po BID x 10 days AMOXICILLIN 29745484393 No Longer Active Simon Castillo MD Active METFORMIN HCL 1000 MG TABS 1 by mount twice a day METFORMIN HCL 32266207880 No Longer Active Smion Castillo MD Active LUTEIN-ZEAXANTHIN 6-1 MG TABS Take 2 by mouth daily LUTEIN-ZEAXANTHIN 37040964122 Active Simon Castillo MD Active IBUPROFEN 800 MG TABS Take 1 tab every 6 hrs prn IBUPROFEN 19508328451 No Longer Active Simon Castillo MD Active GLYBURIDE 2.5 MG TABS Take one by mouth daily GLYBURIDE 04224688933 No Longer Active Simon Castillo MD Active LANCETS MISC 2 qd LANCETS 64357152922 Active Pamela Conde Active ACACIA CONTOUR TEST STRP Use with testing twice daily GLUCOSE BLOOD 97290030751 Active Simon Castillo MD Active GLYBURIDE 2.5 MG TABS Take one by mouth daily GLYBURIDE 2.5 MG TABS 877277 GLYBURIDE Inactive PREDNISONE 20 MG TAB 2 tabs daily for 4 days, 1 tab daily for 4 days, 1/2 tab daily for 4 days PREDNISONE 20 MG TAB 420648 PREDNISONE Inactive SYMBICORT 80-4.5 MCG/ACT AERO 2 puffs twice a day SYMBICORT 80-4.5 MCG/ACT AERO BUDESONIDE-FORMOTEROL FUMARATE Inactive FLONASE 50 MCG/ACT SUSP 2 puffs in each nostril daily FLONASE 50 MCG/ACT SUSP FLUTICASONE PROPIONATE Inactive ATENOLOL 50 MG TABS Take one by mouth daily ATENOLOL 50 MG TABS 263046 ATENOLOL Inactive CETIRIZINE HCL 10 MG TABS 1 po qd as needed for allergies CETIRIZINE HCL 10 MG TABS 0468249 CETIRIZINE HCL Inactive LEVAQUIN 750 MG TABS 1 po qod x 5 doses LEVAQUIN 750 MG TABS 735099 LEVOFLOXACIN Inactive GLYBURIDE 5 MG TAB Take one by mouth daily GLYBURIDE 5 MG TAB 306167 GLYBURIDE Inactive PREDNISONE 5 MG TAB Take one po qod PREDNISONE 5 MG TAB 917208 PREDNISONE Inactive PREDNISONE 20 MG TAB 2 tabs daily for 5 days, then 1 daily for 5 days PREDNISONE 20 MG TAB 077217 PREDNISONE Inactive FLONASE 50 MCG/ACT SUSP 2 puffs in each nostril daily FLONASE 50 MCG/ACT SUSP FLUTICASONE PROPIONATE Inactive SYMBICORT 160-4.5 MCG/ACT AERO 2 puff BID SYMBICORT 160-4.5 MCG/ACT AERO BUDESONIDE-FORMOTEROL FUMARATE Inactive PREDNISONE 5 MG TABS 1 po qod PREDNISONE 5 MG TABS 172768 PREDNISONE Inactive PREDNISONE 20 MG TAB 1 tablet daily for airway inflammation 02/25 PREDNISONE 20 MG TAB 572892 PREDNISONE Inactive SULFASALAZINE 500 MG ORAL TBEC 2 tabs BID SULFASALAZINE 500 MG ORAL TBEC 031409 SULFASALAZINE Inactive LASIX 20 MG TAB 1 tablet by mouth daily x 2 days LASIX 20 MG TAB 005887 FUROSEMIDE Inactive CLARITIN 10 MG TAB 1 tablet by mouth daily as needed for allergies CLARITIN 10 MG TAB 701958 LORATADINE Inactive CLOTRIMAZOLE 1 % EXT CREA Apply to affected area of feet twice daily PRN Rash CLOTRIMAZOLE 1 % EXT CREA 625439 CLOTRIMAZOLE Inactive AMOXICILLIN 500 MG CAPS 2 po BID x 10 days AMOXICILLIN 500 MG CAPS 193669 AMOXICILLIN Inactive GLYBURIDE 5 MG TAB Take one by mouth daily GLYBURIDE 5 MG TAB 952767 GLYBURIDE Inactive AZITHROMYCIN 250 MG TABS 2 po qd x 1 day, then 1 po qd x 4 days AZITHROMYCIN 250 MG TABS 1135582 AZITHROMYCIN Inactive PREDNISONE 20 MG TAB 2 tabs daily for 3 days, 1 tab daily for 3 days, 1/2 tab daily for 2 days PREDNISONE 20 MG TAB 113591 PREDNISONE Inactive PREDNISONE 20 MG TAB 2 tabs daily for 5 days, then 1 daily for 5 days, then 0.5 for 4 days PREDNISONE 20 MG TAB 337748 PREDNISONE Inactive AZITHROMYCIN 250 MG TABS 2 po qd x 1 day, then 1 po qd x 4 days AZITHROMYCIN 250 MG TABS 4833297 AZITHROMYCIN Inactive PREDNISONE 20 MG TAB 2 tabs daily for 3 days, 1 tab daily for 3 days, 1/2 tab daily for 2 days PREDNISONE 20 MG TAB 847330 PREDNISONE Inactive TRIAMCINOLONE ACETONIDE 0.1 % OINT Apply to affected areas TID for up to 2 weeks TRIAMCINOLONE ACETONIDE 0.1 % OINT 6446676 TRIAMCINOLONE ACETONIDE Inactive Immunizations Vaccine Administration Date [...] Panel - Chemistry sodium, serum 137 mmol/L 182-096 9155/06/06 carbon dioxide, venous blood 24.9 mmol/L 21.0-32.0 [...] Panel - Chemistry sodium, serum 139 mmol/L 412-740 3963/03/17 carbon dioxide, venous blood 29.0 mmol/L 21.0-32.0 [...] % 11.6-14.8 platelet count 283 10^3/MM^3 10*3/mm3 339-707 7614/03/17 mean corpuscular volume, RBC 92 fL 80-97 hematocrit, blood 42.0 % 41.0-53.0 hemoglobin, blood 13.6 g/dL 13.5-17.5 erythrocyte (RBC) count 4.56 10^6/MM^3 10*6/mm3 4.69-6.13 leukocyte count, blood 10.9 10^3/MM^3 10*3/mm3 4.6-10.2 Lab Report: Lipid Panel, HGBA1C, Comp. Metabolic Panel - Chemistry cholesterol, serum 126 mg/dL 806-170 7245/02/07 triglyceride, serum, fasting 83 mg/dL 30-200 HDL cholesterol, serum 70 mg/dL 32-96 LDL cholesterol, serum 39 mg/dL 0-130 hemoglobin A1C, blood, as % of total hemoglobin 8.3 % 4.3-6.0 sodium, serum 141 mmol/L 438-424 5249/02/07 carbon dioxide, venous blood 26.0 mmol/L 21.0-32.0 [...] 2.6-7.2 Encounters Code Encounter Date Provider Facility CPT-91919 Level 4 Est. Patient 09:29:28 LAST MARKER Simon Castillo MD [facility] CPT-81104 Level 3 Est. Patient 09:18:25 CDT Simon Castillo MD [facility] CPT-64441 Level 4 Est. Patient 11:51:23 CDT Simon Castillo MD [facility] CPT-40064 Level 4 Est. Patient 14:32:04 CDT Neto Oshea DO [facility] CPT-22446 Level 3 Est. Patient 08:41:43 CDT Giles Tatum APRN [facility] CPT-34448 Level 3 Est. Patient 08:40:53 CDT Jonathanviratriston Salcidoalejandrina [facility] CPT-94540 Level 3 Est. Patient 08:36:52 CDT Giles Caotico [facility] CPT-05635 Level 3 Est. Patient 09:08:44 CDT Jonathanmeli Nashtico [facility] CPT-90326 Level 4 Est. Patient 09:17:32 LAST MARKER Simon Castillo MD [facility] CPT-30075 Level 3 Est. Patient 11:22:22 LAST MARKER Simon Castillo MD [facility] CPT-36484 Level 3 Est. Patient 09:02:14 CDT Simon Castillo MD [facility] CPT-48192 Level 4 Est. Patient 08:47:25 CDT Simon Castillo MD [facility] CPT-11861 Level 4 Est. Patient 10:17:25 CDT Simon Castillo MD [facility] CPT-60618 Level 4 Est. Patient 10:10:09 LAST MARKER Simon Castillo MD [facility] CPT-95054 Level 4 Est. Patient 11:48:19 CDT Simon Castillo MD [facility] CPT-14422 Level 4 Est. Patient 08:59:29 CDT Simon Castillo MD [facility] CPT-53522 Level 4 Est. Patient 10:52:51 LAST MARKER Simon Castillo MD [facility] CPT-41838 Level 4 Est. Patient 11:50:30 CDT Simon Castillo MD [facility] CPT-14123 Level 4 Est. Patient 09:54:46 CDT Simon Castillo MD [facility] CPT-88882 Level 3 Est. Patient 11:10:14 CDT Simon Castillo MD [facility] CPT-63687 Level 4 Est. Patient 09:44:02 CDT Simon Castillo MD [facility] CPT-72233 Level 3 Est. Patient 09:27:48 CDT Simon Castillo MD [facility] CPT-06969 Level 3 Est. Patient 09:58:06 LAST MARKER Simon Castillo MD [facility] CPT-37975 Level 3 Est. Patient 09:51:35 CDT Simon Castillo MD [facility] Procedures Code Procedure Name Date Entry Date Standard Description [facility] Transitional Care Mgmt-High 11:01:28 LAST MARKER CPT-61617 First Vx - Ix admin for Medicare patients 17:33:39 CDT CPT-72483 Fluzone High-Dose Intramuscular Suspension 17:33:39 CDT CPT-G0438 Initial Annual Wellness Exam 08:57:30 CDT CPT-27754 Chest 2V Frontal and Lat - XRAY USE ONLY 09:00:14 CDT CPT-55803 Venipuncture Draw Fee 13:33:02 CDT CPT-54547 Bone Density 09:37:49 LAST MARKER CPT-42022 Fluzone High Dose 17:20:42 CDT CPT-11716 Prevnar 13 17:20:42 CDT CPT-48228 Administration 2+ single or combination vaccines inc oral 17:20:42 CDT CPT-60065 Administration single or combination vaccine inc oral 17 :20:42 CDT CPT-97939 Hand comp min 3V 09:24:38 CDT CPT-14870 Venipuncture Draw Fee 08:07:29 LAST MARKER CPT-79616 Venipuncture Draw Fee 09:02:51 LAST MARKER CPT-80366 Venipuncture Draw Fee 12:45:08 LAST MARKER CPT-63801 Venipuncture Draw Fee 09:25:31 CDT CPT-G0008 Administration of Influenza Virus Vaccine 14:41:29 CDT CPT-30271 Fluzone High-Dose Intramuscular Suspension 14:41:29 CDT CPT-Cryo Cryotherapy 11:48:20 CDT CPT-96770 EKG Trac and Interp 09:21:58 CDT CPT-66164 Chest 2V Frontal and Lat 09:21:58 CDT CPT-Cryo Cryotherapy 10:54:51 LAST MARKER CPT-47178 Administration 2+ single or combination vaccines inc oral 10:42:19 CDT CPT-25066 Administration single or combination vaccine inc oral 10 :42:19 CDT CPT-78351 Pneumovax 10:42:19 CDT CPT-51061 Influenza High Dose age 65+ 10:42:19 CDT CPT-90574 Administration single or combination vaccine inc oral 13 :18:54 CDT CPT-75526 Influenza High Dose age 65+ 13:18:54 CDT CPT-75801 Venipuncture Draw Fee 11:53:16 CDT CPT-91371 LS spine comp w obliq 11:03:13 CDT CPT-Cryo Cryotherapy 08:27:16 LAST MARKER CPT-52433 Administration single or combination vaccine inc oral 10 :56:34 CDT CPT-31028 Influenza High Dose age 65+ 10:56:34 CDT
--- OUTSIDE RECORDS SUMMARY | 2018-03-31 17:13 | XMS REPORT | Clinical Summary ---
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 Simon Castillo MD Long-term [...] 782.3 Active Simon Castillo MD Edema FH LUNG CANCER ICD-V16.1 Inactive Simon Castillo MD FH DIABETES ICD-V18.0 Inactive Simon Castillo MD SEBORRHEIC KERATOSIS ICD-702.19 Inactive Simon Castillo MD BRONCHITIS, ACUTE ICD-466.0 Inactive Simon Castillo MD ABDOMINAL TENDERNESS ICD-789.60 Inactive Simon Castillo MD CHEST WALL PAIN, HX OF ICD-V15.89 Inactive Simon Castillo MD SCIATICA ICD-724.3 Inactive Simon Castillo MD 2012 SINUSITIS, ACUTE ICD-461.9 Kerry Castillo MD BENIGN PROSTATIC HYPERTROPHY, MILD, HX OF ICD-V13.89 Kerry Castillo MD ABDOMINAL PAIN RIGHT LOWER QUADRANT ICD-789.03 Inactive Simon Castillo MD Cough ICD-786.2 Kerry Castillo MD Bronchitis, acute ICD-466.0 Kerry Castillo MD Obesity ICD-278.00 Kerry Castillo [...] right lower lobe ICD-486 Kerry Castillo MD Steroid use, jail ICD-V58.65 Kerry Castillo MD Hand pain, bilateral ICD-729.5 Kerry Castillo MD Medication List Medication Instructions Start Date Stop Date Generic Name NDC Status Provider Patient Instruction GLIMEPIRIDE 4 MG ORAL TABS 1 po BID GLIMEPIRIDE 44910412410 Active Simon Castillo MD Active ASPIRIN EC 81 MG ORAL TBEC 1 po qd ASPIRIN 33805118378 Active Simon Castillo MD Active CLOTRIMAZOLE 1 % EXT CREA Apply to affected area of feet twice daily PRN Rash CLOTRIMAZOLE 79751921015 No Longer Active Simon Castillo MD Active PREDNISONE 5 MG TAB 1 po BID PREDNISONE 61436417708 Active Simon Castillo MD Active FISH OIL 1000 MG CPDR 1 po BID OMEGA-3 FATTY ACIDS 31655714268 Active Simon Castillo MD Active LISINOPRIL 10 MG TABS 1 p qd LISINOPRIL 27229211406 Active Simon Castillo MD Active CLARITIN 10 MG TAB 1 tablet by mouth daily as needed for allergies LORATADINE 42952084040 No Longer Active Simon Castillo MD Active TRIAMCINOLONE ACETONIDE 0.1 % OINT Apply to affected areas TID for up to 2 weeks TRIAMCINOLONE ACETONIDE 26063383400 No Longer Active Simon Castillo MD Active LASIX 20 MG TAB 1 tablet by mouth daily x 2 days FUROSEMIDE 78387135985 No Longer Active Simon Castillo MD Active SULFASALAZINE 500 MG ORAL TBEC 2 tabs BID SULFASALAZINE 07758685616 No Longer Active Neto Oshea DO Active PREDNISONE 20 MG TAB 2 tabs daily for 3 days, 1 tab daily for 3 days, 1/2 tab daily for 2 days PREDNISONE 01331635940 No Longer Active 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 [employer] Active PREDNISONE 20 MG TAB 1 tablet daily for airway inflammation 02/25 PREDNISONE 11895743481 No Longer Active 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 [employer] Active AZITHROMYCIN 250 MG TABS 2 po qd x 1 day, then 1 po qd x 4 days AZITHROMYCIN 33729463438 No Longer Active 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 [employer] Active HYDROCODONE-ACETAMINOPHEN 5-325 MG TABS 1 tab by mouth 8 hours as needed for pain HYDROCODONE-ACETAMINOPHEN 88307555259 Active Simon Castillo MD Active TRAMADOL HCL 50 MG TABS 1 po q6hr PRN Pain TRAMADOL HCL 20023438119 No Longer Active Simon Castillo MD Active PREDNISONE 5 MG TABS 1 po qod PREDNISONE 93663218369 No Longer Active Simon Castillo MD Active SYMBICORT 160-4.5 MCG/ACT AERO 2 puff BID BUDESONIDE- FORMOTEROL FUMARATE 25916070851 No Longer Active Simon Castillo MD Active FLONASE 50 MCG/ACT SUSP 2 puffs in each nostril daily FLUTICASONE PROPIONATE 41501564753 No Longer Active Simon Castillo MD Active PREDNISONE 20 MG TAB 2 tabs daily for 5 days, then 1 daily for 5 days PREDNISONE 80222802065 No Longer Active Simon Castillo MD Active PREDNISONE 20 MG TAB 2 tabs daily for 5 days, then 1 daily for 5 days, then 0.5 for 4 days PREDNISONE 64163485560 No Longer Active Simon Castillo MD Active PREDNISONE 20 MG TAB 2 tabs daily for 3 days, 1 tab daily for 3 days, 1/2 tab daily for 2 days PREDNISONE 92148910443 No Longer Active Simon Castillo MD Active AZITHROMYCIN 250 MG TABS 2 po qd x 1 day, then 1 po qd x 4 days AZITHROMYCIN 49767662910 No Longer Active Simon Castillo MD Active CARVEDILOL 6.25 MG TABS 1 po BID CARVEDILOL 76882939185 Active Simon Castillo MD Active LISINOPRIL-HYDROCHLOROTHIAZIDE 20-12.5 MG TABS 1/2 tab by mouth daily LISINOPRIL-HYDROCHLOROTHIAZIDE 70611535338 No Longer Active Simon Castillo MD Active TRAMADOL HCL 50 MG TABS 1-2 tablets every 6 hours as needed for pain TRAMADOL HCL 09636825277 Active 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 [employer] Active PREDNISONE 5 MG TAB Take one po qod PREDNISONE 37986567036 No Longer Active Simon Castillo MD Active GLYBURIDE 5 MG TAB Take one by mouth daily GLYBURIDE 89831998540 No Longer Active Simon Castillo MD Active LEVAQUIN 750 MG TABS 1 po qod x 5 doses LEVOFLOXACIN 77539948996 No Longer Active Simon Castillo MD Active CETIRIZINE HCL 10 MG TABS 1 po qd as needed for allergies CETIRIZINE HCL 00981614686 No Longer Active Simon Castillo MD Active BILBERRY CAPS 1 tab daily BILBERRY (VACCINIUM MYRTILLUS) CAPS 24120696099 Active Simon Castillo MD Active ATENOLOL 50 MG TABS Take one by mouth daily ATENOLOL 98788263553 No Longer Active Simon Castillo MD Active FLONASE 50 MCG/ACT SUSP 2 puffs in each nostril daily FLUTICASONE PROPIONATE 26950331608 No Longer Active Simon Castillo MD Active GLYBURIDE 5 MG TAB Take one by mouth daily GLYBURIDE 94915812772 No Longer Active Simon Castillo MD Active SYMBICORT 80-4.5 MCG/ACT AERO 2 puffs twice a day BUDESONIDE-FORMOTEROL FUMARATE 47001175009 No Longer Active Simon Castillo MD Active PREDNISONE 20 MG TAB 2 tabs daily for 4 days, 1 tab daily for 4 days, 1/2 tab daily for 4 days PREDNISONE 51818933465 No Longer Active Simon Castillo MD Active AMOXICILLIN 500 MG CAPS 2 po BID x 10 days AMOXICILLIN 77724849639 No Longer Active Simon Castillo MD Active METFORMIN HCL 1000 MG TABS 1 by [facility] twice a day METFORMIN HCL 47826411763 No Longer Active Simon Castillo MD Active LUTEIN-ZEAXANTHIN 6-1 MG TABS Take 2 by mouth daily LUTEIN-ZEAXANTHIN 74900815696 Active Simon Castillo MD Active IBUPROFEN 800 MG TABS Take 1 tab every 6 hrs prn IBUPROFEN 44369192597 No Longer Active Simon Castillo MD Active GLYBURIDE 2.5 MG TABS Take one by mouth daily GLYBURIDE 47703266067 No Longer Active Simon Castillo MD Active LANCETS MISC 2 qd LANCETS 65981340276 Active Pamela Conde Active ACACIA CONTOUR TEST STRP Use with testing twice daily GLUCOSE BLOOD 88857714157 Active Simon Castillo MD Active GLYBURIDE 2.5 MG TABS Take one by mouth daily GLYBURIDE 2.5 MG TABS 821519 GLYBURIDE Inactive PREDNISONE 20 MG TAB 2 tabs daily for 4 days, 1 tab daily for 4 days, 1/2 tab daily for 4 days PREDNISONE 20 MG TAB 259380 PREDNISONE Inactive SYMBICORT 80-4.5 MCG/ACT AERO 2 puffs twice a day SYMBICORT 80-4.5 MCG/ACT AERO BUDESONIDE-FORMOTEROL FUMARATE Inactive FLONASE 50 MCG/ACT SUSP 2 puffs in each nostril daily FLONASE 50 MCG/ACT SUSP FLUTICASONE PROPIONATE Inactive ATENOLOL 50 MG TABS Take one by mouth daily ATENOLOL 50 MG TABS 763487 ATENOLOL Inactive CETIRIZINE HCL 10 MG TABS 1 po qd as needed for allergies CETIRIZINE HCL 10 MG TABS 8002322 CETIRIZINE HCL Inactive LEVAQUIN 750 MG TABS 1 po qod x 5 doses LEVAQUIN 750 MG TABS 596036 LEVOFLOXACIN Inactive GLYBURIDE 5 MG TAB Take one by mouth daily GLYBURIDE 5 MG TAB 478580 GLYBURIDE Inactive PREDNISONE 5 MG TAB Take one po qod PREDNISONE 5 MG TAB 829346 PREDNISONE Inactive PREDNISONE 20 MG TAB 2 tabs daily for 5 days, then 1 daily for 5 days PREDNISONE 20 MG TAB 264476 PREDNISONE Inactive FLONASE 50 MCG/ACT SUSP 2 puffs in each nostril daily FLONASE 50 MCG/ACT SUSP FLUTICASONE PROPIONATE Inactive SYMBICORT 160-4.5 MCG/ACT AERO 2 puff BID SYMBICORT 160-4.5 MCG/ACT AERO BUDESONIDE-FORMOTEROL FUMARATE Inactive PREDNISONE 5 MG TABS 1 po qod PREDNISONE 5 MG TABS 231390 PREDNISONE Inactive PREDNISONE 20 MG TAB 1 tablet daily for airway inflammation 02/25 PREDNISONE 20 MG TAB 046785 PREDNISONE Inactive SULFASALAZINE 500 MG ORAL TBEC 2 tabs BID SULFASALAZINE 500 MG ORAL TBEC 185138 SULFASALAZINE Inactive LASIX 20 MG TAB 1 tablet by mouth daily x 2 days LASIX 20 MG TAB 614552 FUROSEMIDE Inactive CLARITIN 10 MG TAB 1 tablet by mouth daily as needed for allergies CLARITIN 10 MG TAB 609738 LORATADINE Inactive CLOTRIMAZOLE 1 % EXT CREA Apply to affected area of feet twice daily PRN Rash CLOTRIMAZOLE 1 % EXT CREA 047781 CLOTRIMAZOLE Inactive AMOXICILLIN 500 MG CAPS 2 po BID x 10 days AMOXICILLIN 500 MG CAPS 993858 AMOXICILLIN Inactive GLYBURIDE 5 MG TAB Take one by mouth daily GLYBURIDE 5 MG TAB 877309 GLYBURIDE Inactive AZITHROMYCIN 250 MG TABS 2 po qd x 1 day, then 1 po qd x 4 days AZITHROMYCIN 250 MG TABS 6570282 AZITHROMYCIN Inactive PREDNISONE 20 MG TAB 2 tabs daily for 3 days, 1 tab daily for 3 days, 1/2 tab daily for 2 days PREDNISONE 20 MG TAB 086330 PREDNISONE Inactive PREDNISONE 20 MG TAB 2 tabs daily for 5 days, then 1 daily for 5 days, then 0.5 for 4 days PREDNISONE 20 MG TAB 884252 PREDNISONE Inactive AZITHROMYCIN 250 MG TABS 2 po qd x 1 day, then 1 po qd x 4 days AZITHROMYCIN 250 MG TABS 0866270 AZITHROMYCIN Inactive PREDNISONE 20 MG TAB 2 tabs daily for 3 days, 1 tab daily for 3 days, 1/2 tab daily for 2 days PREDNISONE 20 MG TAB 699714 PREDNISONE Inactive TRIAMCINOLONE ACETONIDE 0.1 % OINT Apply to affected areas TID for up to 2 weeks TRIAMCINOLONE ACETONIDE 0.1 % OINT 5042876 TRIAMCINOLONE ACETONIDE Inactive Immunizations Vaccine Administration Date [...] Panel - Chemistry sodium, serum 137 mmol/L 978-347 3609/06/06 carbon dioxide, venous blood 24.9 mmol/L 21.0-32.0 [...] Panel - Chemistry cholesterol, serum 126 mg/dL 748-686 2237/02/07 triglyceride, serum, fasting 83 mg/dL 30-200 HDL cholesterol, serum 70 mg/dL 32-96 LDL cholesterol, serum 39 mg/dL 0-130 hemoglobin A1C, blood, as % of total hemoglobin 8.3 % 4.3-6.0 sodium, serum 141 mmol/L 612-565 7136/02/07 carbon dioxide, venous blood 26.0 mmol/L 21.0-32.0 [...] 2.6-7.2 Encounters Code Encounter Date Provider Facility CPT-48583 Level 4 Est. Patient 16:11:23 CDT Simon Castillo MD [facility] CPT-18363 Level 4 Est. Patient 09:29:28 SPUDDER Simon Castillo MD [facility] CPT-99771 Level 3 Est. Patient 09:18:25 CDT Simon Castillo MD [facility] CPT-54254 Level 4 Est. Patient 11:51:23 CDT Simon Castillo MD [facility] CPT-55027 Level 4 Est. Patient 14:32:04 CDT Neto Oshea DO [facility] CPT-78774 Level 3 Est. Patient 08:41:43 CDT Giles Tatum [facility] CPT-10098 Level 3 Est. Patient 08:40:53 CDT Giles Tatum [facility] CPT-62520 Level 3 Est. Patient 08:36:52 CDT Giles Salcidol [facility] CPT-94724 Level 3 Est. Patient 09:08:44 CDT Giles Salcidol [facility] CPT-05931 Level 4 Est. Patient 09:17:32 SPUDDER Simon Castillo MD [facility] CPT-16374 Level 3 Est. Patient 11:22:22 SPUDDER Simon Castillo MD [facility] CPT-55580 Level 3 Est. Patient 09:02:14 CDT Simon Castillo MD [facility] CPT-24754 Level 4 Est. Patient 08:47:25 CDT Simon Castillo MD [facility] CPT-89430 Level 4 Est. Patient 10:17:25 CDT iSmon Castillo MD [facility] CPT-71729 Level 4 Est. Patient 10:10:09 SPUDDER Simon Castillo MD [facility] CPT-08103 Level 4 Est. Patient 11:48:19 CDT Simon Castillo MD [facility] CPT-31436 Level 4 Est. Patient 08:59:29 CDT Simon Castillo MD [facility] CPT-03442 Level 4 Est. Patient 10:52:51 SPUDDER Simon Castillo MD [facility] CPT-62985 Level 4 Est. Patient 11:50:30 CDT Simon Castillo MD [facility] CPT-22859 Level 4 Est. Patient 09:54:46 CDT Simon Castillo MD [facility] CPT-75581 Level 3 Est. Patient 11:10:14 CDT Simon Castillo MD [facility] CPT-89033 Level 4 Est. Patient 09:44:02 CDT Simon Castillo MD [facility] CPT-77773 Level 3 Est. Patient 09:27:48 CDT Simon Castillo MD [facility] CPT-27973 Level 3 Est. Patient 09:58:06 SPUDDER Simon Castillo MD [facility] CPT-24358 Level 3 Est. Patient 09:51:35 CDT Simon Castillo MD [facility] Procedures Code Procedure Name Date Entry Date Standard Description CPT-78563 Lipid - LAB USE ONLY 17:15:33 CDT CPT-83643 HGBA1C - LAB USE ONLY 17:15:33 CDT CPT-43776 CMP - LAB USE ONLY 17:15:33 CDT CPT-62877 Venipuncture Draw Fee 17:15:33 CDT CPT-[facility] Transitional Care Mgmt-High 11:01:28 SPUDDER CPT-20635 First Vx - Ix admin for Medicare patients 17:33:39 CDT CPT-18660 Fluzone High-Dose Intramuscular Suspension 17:33:39 CDT CPT-G0438 Initial Annual Wellness Exam 08:57:30 CDT CPT-36726 Chest 2V Frontal and Lat - XRAY USE ONLY 09:00:14 CDT CPT-63521 Venipuncture Draw Fee 13:33:02 CDT CPT-15708 Bone Density 09:37:49 SPUDDER CPT-54063 Fluzone High Dose 17:20:42 CDT CPT-84150 Prevnar 13 17:20:42 CDT CPT-51909 Administration 2+ single or combination vaccines inc oral 17:20:42 CDT CPT-31888 Administration single or combination vaccine inc oral 17 :20:42 CDT CPT-66295 Hand comp min 3V 09:24:38 CDT CPT-18948 Venipuncture Draw Fee 08:07:29 SPUDDER CPT-06523 Venipuncture Draw Fee 09:02:51 SPUDDER CPT-64726 Venipuncture Draw Fee 12:45:08 SPUDDER CPT-67480 Venipuncture Draw Fee 09:25:31 CDT CPT-G0008 Administration of Influenza Virus Vaccine 14:41:29 CDT CPT-88089 Fluzone High-Dose Intramuscular Suspension 14:41:29 CDT CPT-Cryo Cryotherapy 11:48:20 CDT CPT-42270 EKG Trac and Interp 09:21:58 CDT CPT-72385 Chest 2V Frontal and Lat 09:21:58 CDT CPT-Cryo Cryotherapy 10:54:51 SPUDDER CPT-73953 Administration 2+ single or combination vaccines inc oral 10:42:19 CDT CPT-37447 Administration single or combination vaccine inc oral 10 :42:19 CDT CPT-32411 Pneumovax 10:42:19 CDT CPT-78931 Influenza High Dose age 65+ 10:42:19 CDT CPT-55804 Administration single or combination vaccine inc oral 13 :18:54 CDT CPT-82179 Influenza High Dose age 65+ 13:18:54 CDT CPT-52732 Venipuncture Draw Fee 11:53:16 CDT CPT-67171 LS spine comp w obliq 11:03:13 CDT CPT-Cryo Cryotherapy 08:27:16 SPUDDER CPT-05849 Administration single or combination vaccine inc oral 10 :56:34 CDT CPT-56647 Influenza High Dose age 65+ 10:56:34 CDT
--- OUTSIDE RECORDS SUMMARY | 2018-03-31 17:14 | XMS REPORT | Clinical Summary ---
Author Author Admin, RAFFI Organization [email or web address] Address Unknown Phone Unavailable Allergies, Adverse Reactions, [...] Simon Castillo MD Rheumatoid arthritis Steroid use, oysterman V58.65 Resolved Simon Castillo MD Long-term (current) [...] Rheumatoid arthritis Pharyngitis 462 Active 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 [employer] ATTENDANT Acute pharyngitis Dyspnea 786.09 Active 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 [employer] ATTENDANT Other dyspnea and respiratory abnormality Peripheral edema 782.3 Active 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 CHECKRO[employer] ATTENDANT Edema FH DIABETES ICD-V18.0 Inactive Simon Castilol MD FH LUNG CANCER ICD-V16.1 Inactive Simon [...] tablet daily for airway inflammation 02/25 PREDNISONE 04210473508 No Longer Active Jillina Deepti HEMPHILL Active SULFASALAZINE 500 MG ORAL TBEC 2 tabs BID SULFASALAZINE 72636583362 Active Jillina Deepti HEMPHILL Active CLARITIN 10 MG TAB 1 tablet by mouth daily as needed for allergies LORATADINE 49335873265 Active Jillina Deepti HEMPHILL Active AZITHROMYCIN 250 MG TABS 2 po qd x 1 day, then 1 po qd x 4 days AZITHROMYCIN 70657074192 No Longer Active Jillina Fratico HEMPHILL Active GLIMEPIRIDE 2 MG ORAL TABS 1 po q a.m. GLIMEPIRIDE 52773860340 Active Simon Castillo MD Active HYDROCODONE-ACETAMINOPHEN 5-325 MG TABS 1 tab by mouth 8 hours as needed for pain HYDROCODONE-ACETAMINOPHEN 18822836484 Active Simon Castillo MD Active TRAMADOL HCL 50 MG TABS 1 po q6hr PRN Pain TRAMADOL HCL 03008113021 No Longer Active Simon Castillo MD Active PREDNISONE 5 MG TAB 1-2 tabs daily for rheumatoid arthritis PREDNISONE 17479977029 Active Simon Castillo MD Active PREDNISONE 5 MG TABS 1 po qod PREDNISONE 31103563039 No Longer Active Simon Castillo MD Active SYMBICORT 160-4.5 MCG/ACT AERO 2 puff BID BUDESONIDE- FORMOTEROL FUMARATE 27761739709 No Longer Active Simon Castillo MD Active FLONASE 50 MCG/ACT SUSP 2 puffs in each nostril daily FLUTICASONE PROPIONATE 77880551146 No Longer Active Simon Castillo MD Active PREDNISONE 20 MG TAB 2 tabs daily for 5 days, then 1 daily for 5 days PREDNISONE 67107334993 No Longer Active Simon Castillo MD Active PREDNISONE 20 MG TAB 2 tabs daily for 5 days, then 1 daily for 5 days, then 0.5 for 4 days PREDNISONE 74227736867 No Longer Active Simon Castillo MD Active CLOTRIMAZOLE 1 % EXT CREA Apply to affected area of feet twice daily PRN Rash CLOTRIMAZOLE 11499154081 Active Simon Castillo MD Active PREDNISONE 20 MG TAB 2 tabs daily for 3 days, 1 tab daily for 3 days, 1/2 tab daily for 2 days PREDNISONE 90768477137 No Longer Active Simon Castillo MD Active AZITHROMYCIN 250 MG TABS 2 po qd x 1 day, then 1 po qd x 4 days AZITHROMYCIN 64545609363 No Longer Active Simon Castillo MD Active LISINOPRIL 10 MG TABS 1 tablet by mouth daily LISINOPRIL 23657646974 Active Simon Castillo MD Active CARVEDILOL 6.25 MG TABS 1 po BID CARVEDILOL 43693226703 Active Simon Castillo MD Active LISINOPRIL-HYDROCHLOROTHIAZIDE 20-12.5 MG TABS 1/2 tab by mouth daily LISINOPRIL-HYDROCHLOROTHIAZIDE 88792951076 No Longer Active Simon Castillo MD Active TRAMADOL HCL 50 MG TABS 1-2 tablets every 6 hours as needed for pain TRAMADOL HCL 56625173793 Active Giles Tatum KANCHAN Active PREDNISONE 5 MG TAB Take one po qod PREDNISONE 64687164189 No Longer Active Simon Castillo MD Active GLYBURIDE 5 MG TAB Take one by mouth daily GLYBURIDE 69934646580 No Longer Active Simon Castillo MD Active LEVAQUIN 750 MG TABS 1 po qod x 5 doses LEVOFLOXACIN 18781038005 No Longer Active Simon Castillo MD Active CETIRIZINE HCL 10 MG TABS 1 po qd as needed for allergies CETIRIZINE HCL 65627815408 No Longer Active Simon Castillo MD Active FISH OIL 1000 MG CPDR 1 pill by mouth twice daily for cholesterol OMEGA -3 FATTY ACIDS 83089446546 Active Simon Castillo MD Active BILBERRY CAPS 1 tab daily BILBERRY (VACCINIUM MYRTILLUS) CAPS 11970661235 Active Simon Castillo MD Active ATENOLOL 50 MG TABS Take one by mouth daily ATENOLOL 31764119478 No Longer Active Simon Castillo MD Active FLONASE 50 MCG/ACT SUSP 2 puffs in each nostril daily FLUTICASONE PROPIONATE 46617418470 No Longer Active Simon Castillo MD Active GLYBURIDE 5 MG TAB Take one by mouth daily GLYBURIDE 29452236268 No Longer Active Simon Castillo MD Active SYMBICORT 80-4.5 MCG/ACT AERO 2 puffs twice a day BUDESONIDE-FORMOTEROL FUMARATE 87118532577 No Longer Active Simon Castillo MD Active PREDNISONE 20 MG TAB 2 tabs daily for 4 days, 1 tab daily for 4 days, 1/2 tab daily for 4 days PREDNISONE 11572438341 No Longer Active Simon Castillo MD Active AMOXICILLIN 500 MG CAPS 2 po BID x 10 days AMOXICILLIN 53845802360 No Longer Active Simon Castillo MD Active METFORMIN HCL 1000 MG TABS 1 by mounth twice a day METFORMIN HCL 63365009413 No Longer Active Simon Castillo MD Active LUTEIN-ZEAXANTHIN 6-1 MG TABS Take 2 by mouth daily LUTEIN-ZEAXANTHIN 64297005294 Active Simon Castillo MD Active IBUPROFEN 800 MG TABS Take 1 tab every 6 hrs prn IBUPROFEN 12465784165 No Longer Active Simon Castillo MD Active GLYBURIDE 2.5 MG TABS Take one by mouth daily GLYBURIDE 70402954722 No Longer Active Simon Castillo MD Active LANCETS MISC 2 qd LANCETS 79313067413 Active Pamela Conde Active ACACIA CONTOUR TEST STRP Use with testing twice daily GLUCOSE BLOOD 44641650441 Active Simon Castillo MD Active ACACIA ASPIRIN 325 MG TABS Take one by mouth daily ASPIRIN 98185626485 Active Pamela Conde Active GLYBURIDE 2.5 MG TABS Take one by mouth daily GLYBURIDE 2.5 MG TABS 437595 GLYBURIDE Inactive PREDNISONE 20 MG TAB 2 tabs daily for 4 days, 1 tab daily for 4 days, 1/2 tab daily for 4 days PREDNISONE 20 MG TAB 206628 PREDNISONE Inactive SYMBICORT 80-4.5 MCG/ACT AERO 2 puffs twice a day SYMBICORT 80-4.5 MCG/ACT AERO BUDESONIDE-FORMOTEROL FUMARATE Inactive FLONASE 50 MCG/ACT SUSP 2 puffs in each nostril daily FLONASE 50 MCG/ACT SUSP 683758 FLUTICASONE PROPIONATE Inactive ATENOLOL 50 MG TABS Take one by mouth daily ATENOLOL 50 MG TABS 940072 ATENOLOL Inactive CETIRIZINE HCL 10 MG TABS 1 po qd as needed for allergies CETIRIZINE HCL 10 MG TABS 8047038 CETIRIZINE HCL Inactive LEVAQUIN 750 MG TABS 1 po qod x 5 doses LEVAQUIN 750 MG TABS 919365 LEVOFLOXACIN Inactive GLYBURIDE 5 MG TAB Take one by mouth daily GLYBURIDE 5 MG TAB 320855 GLYBURIDE Inactive PREDNISONE 5 MG TAB Take one po qod PREDNISONE 5 MG TAB 537891 PREDNISONE Inactive PREDNISONE 20 MG TAB 2 tabs daily for 5 days, then 1 daily for 5 days PREDNISONE 20 MG TAB 157217 PREDNISONE Inactive FLONASE 50 MCG/ACT SUSP 2 puffs in each nostril daily FLONASE 50 MCG/ACT SUSP 795563 FLUTICASONE PROPIONATE Inactive SYMBICORT 160-4.5 MCG/ACT AERO 2 puff BID SYMBICORT 160-4.5 MCG/ACT AERO BUDESONIDE-FORMOTEROL FUMARATE Inactive PREDNISONE 5 MG TABS 1 po qod PREDNISONE 5 MG TABS 889884 PREDNISONE Inactive PREDNISONE 20 MG TAB 1 tablet daily for airway inflammation 02/25 PREDNISONE 20 MG TAB 246182 PREDNISONE Inactive AMOXICILLIN 500 MG CAPS 2 po BID x 10 days AMOXICILLIN 500 MG CAPS 228748 AMOXICILLIN Inactive GLYBURIDE 5 MG TAB Take one by mouth daily GLYBURIDE 5 MG TAB 567857 GLYBURIDE Inactive AZITHROMYCIN 250 MG TABS 2 po qd x 1 day, then 1 po qd x 4 days AZITHROMYCIN 250 MG TABS 5746328 AZITHROMYCIN Inactive PREDNISONE 20 MG TAB 2 tabs daily for 3 days, 1 tab daily for 3 days, 1/2 tab daily for 2 days PREDNISONE 20 MG TAB 004341 PREDNISONE Inactive PREDNISONE 20 MG TAB 2 tabs daily for 5 days, then 1 daily for 5 days, then 0.5 for 4 days PREDNISONE 20 MG TAB 167992 PREDNISONE Inactive AZITHROMYCIN 250 MG TABS 2 po qd x 1 day, then 1 po qd x 4 days AZITHROMYCIN 250 MG TABS 9732705 AZITHROMYCIN Inactive Immunizations Vaccine Administration Date Value [...] Panel - Chemistry sodium, serum 132 mmol/L 124-891 5837/10/26 carbon dioxide, venous blood 22.8 mmol/L 21.0-32.0 [...] Panel - Chemistry sodium, serum 139 mmol/L 122-171 2412/03/17 carbon dioxide, venous blood 29.0 mmol/L 21.0-32.0 [...] Rate - Chemistry sodium, serum 136 mmol/L 522-628 1549/09/18 carbon dioxide, venous blood 24.3 mmol/L 21.0-32.0 [...] HGBA1C - Chemistry sodium, serum 139 mmol/L 716-114 9866/07/09 potassium, serum 5.4 mmol/L 3.5-5.2 chloride, serum [...] 8.5 % 4.3-6.0 sodium, serum 137 mmol/L 948-153 4716/02/12 potassium, serum 5.1 mmol/L 3.5-5.2 chloride, serum 103 mmol/L 98-107 carbon dioxide, venous blood 24.4 mmol/L 21.0-32.0 blood glucose 261 mg/dL 65-110 calcium, serum 9.0 mg/dL 8.5-10.1 urea nitrogen, blood 44 mg/dL 7-18 creatinine, serum 2.37 mg/dL 0.55-1.30 Lab Report: Lipid Panel - Chemistry cholesterol, serum 139 mg/dL 449-013 7083/09/10 triglyceride, serum, fasting 176 mg/dL 30-200 HDL cholesterol, serum 45 mg/dL 32-96 LDL cholesterol, serum 59 mg/dL 0-130 Lab Report: MICROALBUMIN - Chemistry albumin/creatinine ratio, urine 30 - 300 mg/g mg/g{creat} 0-29 Lab Report: MICROALBUMIN - Lab microalbumin, urine 30 0-19 Encounters Code Encounter Date Provider Facility CPT-62325 Level 3 Est. Patient 08:41:43 CDT Giles Tatum [facility] [place] CPT-64628 Level 3 Est. Patient 08:40:53 CDT Giles Tatum [facility] [place] CPT-50413 Level 3 Est. Patient 08:36:52 CDT Giles Tatum [facility] [place] CPT-77999 Level 3 Est. Patient 09:08:44 [facility]232 Level 4 Est. Patient 09:17:32 [employer] Simon Castillo MD [facility] CPT-19520 Level 3 Est. Patient 11:22:22 [employer] CLEANER Simon Castillo MD [facility] CPT-95770 Level 3 Est. Patient 09:02:14 CDT Simon Castillo MD [facility] CPT-49896 Level 4 Est. Patient 08:47:25 CDT Simon Castillo MD [facility] CPT-78296 Level 4 Est. Patient 10:17:25 CDT Simon Castillo MD [facility] CPT-42668 Level 4 Est. Patient 10:10:09 [employer] CLE[employer] Simon Castillo MD [facility] CPT-29210 Level 4 Est. Patient 11:48:19 CDT Simon Castillo MD [facility] CPT-28296 Level 4 Est. Patient 08:59:29 CDT Simon Castillo MD [facility] CPT-29631 Level 4 Est. Patient 10:52:51 [employer] CLEANER Simon Castillo MD [facility] CPT-98799 Level 4 Est. Patient 11:50:30 CDT Simon Castillo MD [facility] CPT-56083 Level 4 Est. Patient 09:54:46 CDT Simon Castillo MD [facility] CPT-04366 Level 3 Est. Patient 11:10:14 CDT Simon Castillo MD [facility] CPT-58888 Level 4 Est. Patient 09:44:02 CDT Simon Castillo MD [facility] CPT-11346 Level 3 Est. Patient 09:27:48 CDT Simon Castillo MD [facility] CPT-39371 Level 3 Est. Patient 09:58:06 [employer] CLE[employer]ER Simon Castillo MD [facility] CPT-01116 Level 3 Est. Patient 09:51:35 CDT Simon Castillo MD [facility] Procedures Code Procedure Name Date Entry Date Standard Description CPT-96004 Chest 2V Frontal and Lat - XRAY USE ONLY 09:00:14 CDT CPT-93889 Venipuncture Draw Fee 13:33:02 CDT CPT-46580 Bone Density 09:37:49 [employer] CLE[employer] CPT-51636 Fluzone High Dose 17:20:42 CDT CPT-16867 Prevnar 13 17:20:42 CDT CPT-24788 Administration 2+ single or combination vaccines inc oral 17:20:42 CDT CPT-01509 Administration single or combination vaccine inc oral 17 :20:42 CDT CPT-61109 Hand comp min 3V 09:24:38 CDT CPT-66843 Venipuncture Draw Fee 08:07:29 [employer] CLE[employer]ER CPT-31140 Venipuncture Draw Fee 09:02:51 [employer] CLE[employer]ER CPT-22639 Venipuncture Draw Fee 12:45:08 [employer] CLE[employer]ER CPT-75433 Venipuncture Draw Fee 09:25:31 CDT CPT-G0008 Administration of Influenza Virus Vaccine 14:41:29 CDT CPT-75669 Fluzone High-Dose Intramuscular Suspension 14:41:29 CDT CPT-Cryo Cryotherapy 11:48:20 CDT CPT-76045 EKG Trac and Interp 09:21:58 CDT CPT-45535 Chest 2V Frontal and Lat 09:21:58 CDT CPT-Cryo Cryotherapy 10:54:51 [employer] CLE[employer] CPT-99920 Administration 2+ single or combination vaccines inc oral 10:42:19 CDT CPT-04522 Administration single or combination vaccine inc oral 10 :42:19 CDT CPT-09704 Pneumovax 10:42:19 CDT CPT-99754 Influenza High Dose age 65+ 10:42:19 CDT CPT-94953 Administration single or combination vaccine inc oral 13 :18:54 CDT CPT-50766 Influenza High Dose age 65+ 13:18:54 CDT CPT-21596 Venipuncture Draw Fee 11:53:16 CDT CPT-85710 LS spine comp w obliq 11:03:13 CDT CPT-Cryo Cryotherapy 08:27:16 [employer] CLE[employer] CPT-30325 Administration single or combination vaccine inc oral 10 :56:34 CDT CPT-09654 Influenza High Dose age 65+ 10:56:34 CDT
[2018-03-31] MEDS ORDERED: inSUlin (REGULAR) HUMAN 1 UNIT/0.01 ML (CHARGE PER UNIT) SC ONE (17:15)
--- OUTSIDE RECORDS SUMMARY | 2018-03-31 17:15 | XMS REPORT | Clinical Summary ---
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 V58.65 Resolved Simon Castillo MD Long-term (current) [...] Rheumatoid arthritis Pharyngitis 462 Active 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 OUTSIDE SALES MANAGER Acute pharyngitis Dyspnea 786.09 Active 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 OUTSIDE SALES MANAGER Other dyspnea and respiratory abnormality Peripheral edema 782.3 Active 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 OUTSIDE SALES MANAGER Edema 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 Simon Castillo [...] ICD-729.5 Inactive Simon Castillo MD 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, 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 ICD-V58.65 Inactive Simon Castillo MD Hand pain, bilateral ICD-729.5 Kerry Castillo MD Medication List Medication Instructions Start Date Stop Date Generic Name NDC Status Provider Patient Instruction TRIAMCINOLONE ACETONIDE 0.1 % OINT Apply to affected areas TID for up to 2 weeks TRIAMCINOLONE ACETONIDE 51073627309 No Longer Active Simon Castillo MD Active LASIX 20 MG TAB 1 tablet by mouth daily x 2 days FUROSEMIDE 81255121992 No Longer Active Simon Castillo MD Active SULFASALAZINE 500 MG ORAL TBEC 2 tabs BID SULFASALAZINE 62931628399 No Longer Active Neto Oshea DO Active PREDNISONE 20 MG TAB 2 tabs daily for 3 days, 1 tab daily for 3 days, 1/2 tab daily for 2 days PREDNISONE 70038666931 No Longer Active Jillina Frazelalejandrina HEMPHILL Active PREDNISONE 20 MG TAB 1 tablet daily for airway inflammation 02/25 PREDNISONE 74759695408 No Longer Active Jillina Frazell OUTSIDE SALES MANAGER Active CLARITIN 10 MG TAB 1 tablet by mouth daily as needed for allergies LORATADINE 47039785500 Active Jillina Lolyl OUTSIDE SALES MANAGER Active AZITHROMYCIN 250 MG TABS 2 po qd x 1 day, then 1 po qd x 4 days AZITHROMYCIN 80119218000 No Longer Active Jillina Frazell OUTSIDE SALES MANAGER Active GLIMEPIRIDE 2 MG ORAL TABS 1 po q a.m. GLIMEPIRIDE 26537311889 Active Simon Castillo MD Active HYDROCODONE-ACETAMINOPHEN 5-325 MG TABS 1 tab by mouth 8 hours as needed for pain HYDROCODONE-ACETAMINOPHEN 03961757221 Active Simon Castillo MD Active TRAMADOL HCL 50 MG TABS 1 po q6hr PRN Pain TRAMADOL HCL 64692237943 No Longer Active Simon Castillo MD Active PREDNISONE 5 MG TAB 1-2 tabs daily for rheumatoid arthritis PREDNISONE 17256113222 Active Simon Castillo MD Active PREDNISONE 5 MG TABS 1 po qod PREDNISONE 82580587470 No Longer Active Simon Castillo MD Active SYMBICORT 160-4.5 MCG/ACT AERO 2 puff BID BUDESONIDE- FORMOTEROL FUMARATE 53065859030 No Longer Active Simon Castillo MD Active FLONASE 50 MCG/ACT SUSP 2 puffs in each nostril daily FLUTICASONE PROPIONATE 87312741997 No Longer Active Simon Castillo MD Active PREDNISONE 20 MG TAB 2 tabs daily for 5 days, then 1 daily for 5 days PREDNISONE 47849439834 No Longer Active Simon Castillo MD Active PREDNISONE 20 MG TAB 2 tabs daily for 5 days, then 1 daily for 5 days, then 0.5 for 4 days PREDNISONE 69345668182 No Longer Active Simon Castillo MD Active CLOTRIMAZOLE 1 % EXT CREA Apply to affected area of feet twice daily PRN Rash CLOTRIMAZOLE 13123789488 Active Simon Castillo MD Active PREDNISONE 20 MG TAB 2 tabs daily for 3 days, 1 tab daily for 3 days, 1/2 tab daily for 2 days PREDNISONE 69113017370 No Longer Active Simon Castillo MD Active AZITHROMYCIN 250 MG TABS 2 po qd x 1 day, then 1 po qd x 4 days AZITHROMYCIN 90512365386 No Longer Active Simon Castillo MD Active LISINOPRIL 10 MG TABS 1 tablet by mouth daily LISINOPRIL 29532265622 Active Simon Castillo MD Active CARVEDILOL 6.25 MG TABS 1 po BID CARVEDILOL 21630334721 Active Simon Castillo MD Active LISINOPRIL-HYDROCHLOROTHIAZIDE 20-12.5 MG TABS 1/2 tab by mouth daily LISINOPRIL-HYDROCHLOROTHIAZIDE 34035355603 No Longer Active Simon Castillo MD Active TRAMADOL HCL 50 MG TABS 1-2 tablets every 6 hours as needed for pain TRAMADOL HCL 98684576548 Active Giles Tatum APRN Active PREDNISONE 5 MG TAB Take one po qod PREDNISONE 16258872583 No Longer Active Simon Castillo MD Active GLYBURIDE 5 MG TAB Take one by mouth daily GLYBURIDE 28129375673 No Longer Active Simon Castillo MD Active LEVAQUIN 750 MG TABS 1 po qod x 5 doses LEVOFLOXACIN 14614893140 No Longer Active Simon Castillo MD Active CETIRIZINE HCL 10 MG TABS 1 po qd as needed for allergies CETIRIZINE HCL 84135358868 No Longer Active Simon Castillo MD Active FISH OIL 1000 MG CPDR 1 pill by mouth twice daily for cholesterol OMEGA -3 FATTY ACIDS 98383892797 Active Simon Castillo MD Active BILBERRY CAPS 1 tab daily BILBERRY (VACCINIUM MYRTILLUS) CAPS 84234492960 Active Simon Castillo MD Active ATENOLOL 50 MG TABS Take one by mouth daily ATENOLOL 29580223337 No Longer Active Simon Castillo MD Active FLONASE 50 MCG/ACT SUSP 2 puffs in each nostril daily FLUTICASONE PROPIONATE 26771395923 No Longer Active Simon Castillo MD Active GLYBURIDE 5 MG TAB Take one by mouth daily GLYBURIDE 64972104008 No Longer Active Simon Castillo MD Active SYMBICORT 80-4.5 MCG/ACT AERO 2 puffs twice a day BUDESONIDE-FORMOTEROL FUMARATE 79327423167 No Longer Active Simon Castillo MD Active PREDNISONE 20 MG TAB 2 tabs daily for 4 days, 1 tab daily for 4 days, 1/2 tab daily for 4 days PREDNISONE 93635437600 No Longer Active Simon Castillo MD Active AMOXICILLIN 500 MG CAPS 2 po BID x 10 days AMOXICILLIN 55527521350 No Longer Active Simon Castillo MD Active METFORMIN HCL 1000 MG TABS 1 by mounth twice a day METFORMIN HCL 19993759461 No Longer Active Simon Castillo MD Active LUTEIN-ZEAXANTHIN 6-1 MG TABS Take 2 by mouth daily LUTEIN-ZEAXANTHIN 15956927546 Active Simon Castillo MD Active IBUPROFEN 800 MG TABS Take 1 tab every 6 hrs prn IBUPROFEN 50881462162 No Longer Active Simon Castillo MD Active GLYBURIDE 2.5 MG TABS Take one by mouth daily GLYBURIDE 77630082886 No Longer Active Simon Castillo MD Active LANCETS MISC 2 qd LANCETS 88355306503 Active Pamela Conde Active ACACIA CONTOUR TEST STRP Use with testing twice daily GLUCOSE BLOOD 59484246987 Active Simon Castillo MD Active ACACIA ASPIRIN 325 MG TABS Take one by mouth daily ASPIRIN 19609317859 Active Pamela Conde Active GLYBURIDE 2.5 MG TABS Take one by mouth daily GLYBURIDE 2.5 MG TABS 966151 GLYBURIDE Inactive PREDNISONE 20 MG TAB 2 tabs daily for 4 days, 1 tab daily for 4 days, 1/2 tab daily for 4 days PREDNISONE 20 MG TAB 026077 PREDNISONE Inactive SYMBICORT 80-4.5 MCG/ACT AERO 2 puffs twice a day SYMBICORT 80-4.5 MCG/ACT AERO BUDESONIDE-FORMOTEROL FUMARATE Inactive FLONASE 50 MCG/ACT SUSP 2 puffs in each nostril daily FLONASE 50 MCG/ACT SUSP FLUTICASONE PROPIONATE Inactive ATENOLOL 50 MG TABS Take one by mouth daily ATENOLOL 50 MG TABS 654441 ATENOLOL Inactive CETIRIZINE HCL 10 MG TABS 1 po qd as needed for allergies CETIRIZINE HCL 10 MG TABS 9602028 CETIRIZINE HCL Inactive LEVAQUIN 750 MG TABS 1 po qod x 5 doses LEVAQUIN 750 MG TABS 646255 LEVOFLOXACIN Inactive GLYBURIDE 5 MG TAB Take one by mouth daily GLYBURIDE 5 MG TAB 706289 GLYBURIDE Inactive PREDNISONE 5 MG TAB Take one po qod PREDNISONE 5 MG TAB 653838 PREDNISONE Inactive PREDNISONE 20 MG TAB 2 tabs daily for 5 days, then 1 daily for 5 days PREDNISONE 20 MG TAB 824091 PREDNISONE Inactive FLONASE 50 MCG/ACT SUSP 2 puffs in each nostril daily FLONASE 50 MCG/ACT SUSP FLUTICASONE PROPIONATE Inactive SYMBICORT 160-4.5 MCG/ACT AERO 2 puff BID SYMBICORT 160-4.5 MCG/ACT AERO BUDESONIDE-FORMOTEROL FUMARATE Inactive PREDNISONE 5 MG TABS 1 po qod PREDNISONE 5 MG TABS 389826 PREDNISONE Inactive PREDNISONE 20 MG TAB 1 tablet daily for airway inflammation 02/25 PREDNISONE 20 MG TAB 442955 PREDNISONE Inactive SULFASALAZINE 500 MG ORAL TBEC 2 tabs BID SULFASALAZINE 500 MG ORAL TBEC 755695 SULFASALAZINE Inactive LASIX 20 MG TAB 1 tablet by mouth daily x 2 days LASIX 20 MG TAB 099632 FUROSEMIDE Inactive AMOXICILLIN 500 MG CAPS 2 po BID x 10 days AMOXICILLIN 500 MG CAPS 653679 AMOXICILLIN Inactive GLYBURIDE 5 MG TAB Take one by mouth daily GLYBURIDE 5 MG TAB 926490 GLYBURIDE Inactive AZITHROMYCIN 250 MG TABS 2 po qd x 1 day, then 1 po qd x 4 days AZITHROMYCIN 250 MG TABS 6620313 AZITHROMYCIN Inactive PREDNISONE 20 MG TAB 2 tabs daily for 3 days, 1 tab daily for 3 days, 1/2 tab daily for 2 days PREDNISONE 20 MG TAB 277459 PREDNISONE Inactive PREDNISONE 20 MG TAB 2 tabs daily for 5 days, then 1 daily for 5 days, then 0.5 for 4 days PREDNISONE 20 MG TAB 864700 PREDNISONE Inactive AZITHROMYCIN 250 MG TABS 2 po qd x 1 day, then 1 po qd x 4 days AZITHROMYCIN 250 MG TABS 9958087 AZITHROMYCIN Inactive PREDNISONE 20 MG TAB 2 tabs daily for 3 days, 1 tab daily for 3 days, 1/2 tab daily for 2 days PREDNISONE 20 MG TAB 254699 PREDNISONE Inactive TRIAMCINOLONE ACETONIDE 0.1 % OINT Apply to affected areas TID for up to 2 weeks TRIAMCINOLONE ACETONIDE 0.1 % OINT 6488101 TRIAMCINOLONE ACETONIDE Inactive Immunizations Vaccine Administration Date [...] Panel - Chemistry sodium, serum 132 mmol/L 544-064 5635/10/26 carbon dioxide, venous blood 22.8 mmol/L 21.0-32.0 potassium, serum 5.4 mmol/L 3.5-5.2 chloride, serum 98 mmol/L 98-107 blood glucose 424 mg/dL 65-110 urea nitrogen, blood 40 mg/dL 7-18 creatinine, serum 2.26 mg/dL 0.55-1.30 alanine aminotransferase (SGPT), serum 29 U/L 12-78 aspartate aminotransferase (SGOT), serum 24 U/L 15-37 calcium, serum 8.6 mg/dL 8.5-10.1 bilirubin, serum, total 0.60 mg/dL 0.00-1.00 sodium, serum 137 mmol/L 380-239 1922/06/06 carbon dioxide, venous blood 24.9 mmol/L 21.0-32.0 [...] % 11.6-14.8 platelet count 274 10^3/MM^3 10*3/mm3 392-027 1868/06/06 leukocyte count, blood 7.4 10^3/MM^3 10*3/mm3 4.6-10.2 [...] Panel - Chemistry sodium, serum 139 mmol/L 474-692 5794/03/17 carbon dioxide, venous blood 29.0 mmol/L 21.0-32.0 [...] Rate - Chemistry sodium, serum 136 mmol/L 489-155 5766/09/18 carbon dioxide, venous blood 24.3 mmol/L 21.0-32.0 [...] 8.5 % 4.3-6.0 sodium, serum 137 mmol/L 613-169 9371/02/12 potassium, serum 5.1 mmol/L 3.5-5.2 chloride, serum 103 mmol/L 98-107 carbon dioxide, venous blood 24.4 mmol/L 21.0-32.0 blood glucose 261 mg/dL 65-110 calcium, serum 9.0 mg/dL 8.5-10.1 urea nitrogen, blood 44 mg/dL 7-18 creatinine, serum 2.37 mg/dL 0.55-1.30 Lab Report: Lipid Panel - Chemistry cholesterol, serum 139 mg/dL 480-005 9445/09/10 triglyceride, serum, fasting 176 mg/dL 30-200 HDL cholesterol, serum 45 mg/dL 32-96 LDL cholesterol, serum 59 mg/dL 0-130 Lab Report: MICROALBUMIN - Chemistry albumin/creatinine ratio, urine 30 - 300 mg/g mg/g{creat} 0-29 Lab Report: MICROALBUMIN - Lab microalbumin, urine 30 0-19 Lab Report: Uric Acid - Chemistry uric acid, serum 6.3 mg/dL 2.6-7.2 Encounters Code Encounter Date Provider Facility CPT-73395 Level 3 Est. Patient 09:18:25 CDT Simon Castillo MD [facility] CPT-25827 Level 4 Est. Patient 11:51:23 CDT Simon Castillo MD [facility] CPT-30943 Level 4 Est. Patient 14:32:04 CDT Neto Oshea DO [facility] CPT-90254 Level 3 Est. Patient 08:41:43 CDT Giles Tatum [facility] CPT-86163 Level 3 Est. Patient 08:40:53 CDT Giles Tatum [facility] CPT-57559 Level 3 Est. Patient 08:36:52 CDT Giles Tatum [facility] CPT-03422 Level 3 Est. Patient 09:08:44 CDT Jonathanmeli Nashtico HEMPHILL [facility] CPT-50466 Level 4 Est. 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 Patient 11:22:22 COMMERCIAL RETOUCHER Simon Castillo MD [facility] CPT-18365 Level 3 Est. Patient 09:02:14 CDT Simon Castillo MD [facility] CPT-40953 Level 4 Est. Patient 08:47:25 CDT Simon Castillo MD [facility] CPT-66924 Level 4 Est. Patient 10:17:25 CDT Simon Castillo MD [facility] CPT-26245 Level 4 Est. Patient 10:10:09 COMMERCIAL RETOUCHER Simon Castillo MD [facility] CPT-61881 Level 4 Est. Patient 11:48:19 CDT Simon Castillo MD [facility] CPT-99303 Level 4 Est. Patient 08:59:29 CDT Simon Castillo MD [facility] CPT-15270 Level 4 Est. Patient 10:52:51 COMMERCIAL RETOUCHER Simon Castillo MD [facility] CPT-96199 Level 4 Est. Patient 11:50:30 CDT Simon Castillo MD [facility] CPT-73515 Level 4 Est. Patient 09:54:46 CDT Simon Castillo MD [facility] CPT-50692 Level 3 Est. Patient 11:10:14 CDT Simon Castillo MD [facility] CPT-26365 Level 4 Est. Patient 09:44:02 CDT Simon Castillo MD [facility] CPT-23101 Level 3 Est. Patient 09:27:48 CDT Simon Castillo MD [facility] CPT-62024 Level 3 Est. Patient 09:58:06 COMMERCIAL RETOUCHER Simon Castillo MD [facility] CPT-56359 Level 3 Est. Patient 09:51:35 CDT Simon Castillo MD [facility] Procedures Code Procedure Name Date Entry Date Standard Description CPT-G0438 Initial Annual Wellness Exam 08:57:30 CDT CPT-69944 Chest 2V Frontal and Lat - XRAY USE ONLY 09:00:14 CDT CPT-33616 Venipuncture Draw Fee 13:33:02 CDT CPT-20913 Bone Density 09:37:49 COMMERCIAL RETOUCHER CPT-59669 Fluzone High Dose 17:20:42 CDT CPT-71764 Prevnar 13 17:20:42 CDT CPT-08109 Administration 2+ single or combination vaccines inc oral 17:20:42 CDT CPT-08786 Administration single or combination vaccine inc oral 17 :20:42 CDT CPT-44541 Hand comp min 3V 09:24:38 CDT CPT-71799 Venipuncture Draw Fee 08:07:29 COMMERCIAL RETOUCHER CPT-27744 Venipuncture Draw Fee 09:02:51 COMMERCIAL RETOUCHER CPT-89383 Venipuncture Draw Fee 12:45:08 COMMERCIAL RETOUCHER CPT-27899 Venipuncture Draw Fee 09:25:31 CDT CPT-G0008 Administration of Influenza Virus Vaccine 14:41:29 CDT CPT-49857 Fluzone High-Dose Intramuscular Suspension 14:41:29 CDT CPT-Cryo Cryotherapy 11:48:20 CDT CPT-11417 EKG Trac and Interp 09:21:58 CDT CPT-24313 Chest 2V Frontal and Lat 09:21:58 CDT CPT-Cryo Cryotherapy 10:54:51 COMMERCIAL RETOUCHER CPT-93163 Administration 2+ single or combination vaccines inc oral 10:42:19 CDT CPT-98535 Administration single or combination vaccine inc oral 10 :42:19 CDT CPT-05637 Pneumovax 10:42:19 CDT CPT-48144 Influenza High Dose age 65+ 10:42:19 CDT CPT-93991 Administration single or combination vaccine inc oral 13 :18:54 CDT CPT-81961 Influenza High Dose age 65+ 13:18:54 CDT CPT-75236 Venipuncture Draw Fee 11:53:16 CDT CPT-50815 LS spine comp w obliq 11:03:13 CDT CPT-Cryo Cryotherapy 08:27:16 COMMERCIAL RETOUCHER CPT-96514 Administration single or combination vaccine inc oral 10 :56:34 CDT CPT-24304 Influenza High Dose age 65+ 10:56:34 CDT
--- OUTSIDE RECORDS SUMMARY | 2018-03-31 17:16 | XMS REPORT | Clinical Summary ---
Author Author Admin, QIE Organization [facility] Address Unknown Phone Unavailable Allergies, Adverse Reactions, Alerts Allergy Name Reaction Description Start Date Severity Status Provider No Known Allergies [facility] Conditions or Problems Problem Name Problem Code Onset Date Status Entry Date Provider Comment Standard Description Annotate DIABETES, TYPE 2 250.00 Inactive iSmon Castillo MD Diabetes mellitus without mention of [...] Simon Castillo MD Rheumatoid arthritis Steroid use, lobsterman V58.65 Resolved Simon Castillo MD Long-term (current) [...] Rheumatoid arthritis Pharyngitis 462 Active Jillina Frazell [employer] Acute pharyngitis Dyspnea 786.09 Active Jillina Frazell [employer] Other dyspnea and respiratory abnormality Peripheral edema 782.3 Active Jillina Frazell [employer] Edema FH DIABETES ICD-V18.0 Inactive Simon Castillo [...] by mouth daily x 2 days FUROSEMIDE 69286679012 No Longer Active Simon Castillo MD Active SULFASALAZINE 500 MG ORAL TBEC 2 tabs BID SULFASALAZINE 90174629100 No Longer Active Neto Oshea DO Active PREDNISONE 20 MG TAB 2 tabs daily for 3 days, 1 tab daily for 3 days, 1/2 tab daily for 2 days PREDNISONE 24196293284 No Longer Active Jillina Frazell [employer]OCIATE Active PREDNISONE 20 MG TAB 1 tablet daily for airway inflammation 02/25 PREDNISONE 59796729049 No Longer Active Jillina Frazell [employer]ING [employer]OCIATE Active CLARITIN 10 MG TAB 1 tablet by mouth daily as needed for allergies LORATADINE 40684256551 Active Jillina Frazell [employer] MARK[employer]ING ASSOCIATE Active AZITHROMYCIN 250 MG TABS 2 po qd x 1 day, then 1 po qd x 4 days AZITHROMYCIN 25517120630 No Longer Active Jillina Frazell [employer]ING ASSOCIATE Active GLIMEPIRIDE 2 MG ORAL TABS 1 po q a.m. GLIMEPIRIDE 72502508496 Active Simon Castillo MD Active HYDROCODONE-ACETAMINOPHEN 5-325 MG TABS 1 tab by mouth 8 hours as needed for pain HYDROCODONE-ACETAMINOPHEN 25408892001 Active Simon Castillo MD Active TRAMADOL HCL 50 MG TABS 1 po q6hr PRN Pain TRAMADOL HCL 14622052723 No Longer Active Simon Castillo MD Active PREDNISONE 5 MG TAB 1-2 tabs daily for rheumatoid arthritis PREDNISONE 86278837422 Active Simon Castillo MD Active PREDNISONE 5 MG TABS 1 po qod PREDNISONE 48166208786 No Longer Active Simon Castillo MD Active SYMBICORT 160-4.5 MCG/ACT AERO 2 puff BID BUDESONIDE- FORMOTEROL FUMARATE 30683033822 No Longer Active Simon Castillo MD Active FLONASE 50 MCG/ACT SUSP 2 puffs in each nostril daily FLUTICASONE PROPIONATE 28202475610 No Longer Active Simon Castillo MD Active PREDNISONE 20 MG TAB 2 tabs daily for 5 days, then 1 daily for 5 days PREDNISONE 08837542965 No Longer Active Simon Castillo MD Active PREDNISONE 20 MG TAB 2 tabs daily for 5 days, then 1 daily for 5 days, then 0.5 for 4 days PREDNISONE 41562817572 No Longer Active Simon Castillo MD Active CLOTRIMAZOLE 1 % EXT CREA Apply to affected area of feet twice daily PRN Rash CLOTRIMAZOLE 62789263023 Active Simon Castillo MD Active PREDNISONE 20 MG TAB 2 tabs daily for 3 days, 1 tab daily for 3 days, 1/2 tab daily for 2 days PREDNISONE 78725893792 No Longer Active Simon Castillo MD Active AZITHROMYCIN 250 MG TABS 2 po qd x 1 day, then 1 po qd x 4 days AZITHROMYCIN 02663353823 No Longer Active Simon Castillo MD Active LISINOPRIL 10 MG TABS 1 tablet by mouth daily LISINOPRIL 21256622563 Active Simon Castillo MD Active CARVEDILOL 6.25 MG TABS 1 po BID CARVEDILOL 04022290157 Active Simon Castillo MD Active LISINOPRIL-HYDROCHLOROTHIAZIDE 20-12.5 MG TABS 1/2 tab by mouth daily LISINOPRIL-HYDROCHLOROTHIAZIDE 09099983887 No Longer Active Simon Castillo MD Active TRAMADOL HCL 50 MG TABS 1-2 tablets every 6 hours as needed for pain TRAMADOL HCL 50675040294 Active Giles Tatum APRN Active PREDNISONE 5 MG TAB Take one po qod PREDNISONE 62360245019 No Longer Active Simon Castillo MD Active GLYBURIDE 5 MG TAB Take one by mouth daily GLYBURIDE 37978816500 No Longer Active Simon Castillo MD Active LEVAQUIN 750 MG TABS 1 po qod x 5 doses LEVOFLOXACIN 74861300081 No Longer Active Simon Castillo MD Active CETIRIZINE HCL 10 MG TABS 1 po qd as needed for allergies CETIRIZINE HCL 66344104620 No Longer Active Simon Castillo MD Active FISH OIL 1000 MG CPDR 1 pill by mouth twice daily for cholesterol OMEGA -3 FATTY ACIDS 29528262443 Active Simon Castillo MD Active BILBERRY CAPS 1 tab daily BILBERRY (VACCINIUM MYRTILLUS) CAPS 18443743858 Active Simon Castillo MD Active ATENOLOL 50 MG TABS Take one by mouth daily ATENOLOL 63364757474 No Longer Active Simon Castillo MD Active FLONASE 50 MCG/ACT SUSP 2 puffs in each nostril daily FLUTICASONE PROPIONATE 61582280097 No Longer Active Simon Castillo MD Active GLYBURIDE 5 MG TAB Take one by mouth daily GLYBURIDE 89648298024 No Longer Active Simon Castillo MD Active SYMBICORT 80-4.5 MCG/ACT AERO 2 puffs twice a day BUDESONIDE-FORMOTEROL FUMARATE 85444434499 No Longer Active Simon Castillo MD Active PREDNISONE 20 MG TAB 2 tabs daily for 4 days, 1 tab daily for 4 days, 1/2 tab daily for 4 days PREDNISONE 01779508488 No Longer Active Simon Castillo MD Active AMOXICILLIN 500 MG CAPS 2 po BID x 10 days AMOXICILLIN 69769102449 No Longer Active Simon Castillo MD Active METFORMIN HCL 1000 MG TABS 1 by mounth twice a day METFORMIN HCL 13682555478 No Longer Active Simon Castillo MD Active LUTEIN-ZEAXANTHIN 6-1 MG TABS Take 2 by mouth daily LUTEIN-ZEAXANTHIN 26913133074 Active Simon Castillo MD Active IBUPROFEN 800 MG TABS Take 1 tab every 6 hrs prn IBUPROFEN 62372884965 No Longer Active Simon Castillo MD Active GLYBURIDE 2.5 MG TABS Take one by mouth daily GLYBURIDE 48766921783 No Longer Active Simon Castillo MD Active LANCETS MISC 2 qd LANCETS 48109307234 Active Pamela Conde Active ACACIA CONTOUR TEST STRP Use with testing twice daily GLUCOSE BLOOD 60621644304 Active Simon Castillo MD Active ACACIA ASPIRIN 325 MG TABS Take one by mouth daily ASPIRIN 27734615921 Active Pamela Conde Active GLYBURIDE 2.5 MG TABS Take one by mouth daily GLYBURIDE 2.5 MG TABS 558559 GLYBURIDE Inactive PREDNISONE 20 MG TAB 2 tabs daily for 4 days, 1 tab daily for 4 days, 1/2 tab daily for 4 days PREDNISONE 20 MG TAB 990785 PREDNISONE Inactive SYMBICORT 80-4.5 MCG/ACT AERO 2 puffs twice a day SYMBICORT 80-4.5 MCG/ACT AERO BUDESONIDE-FORMOTEROL FUMARATE Inactive FLONASE 50 MCG/ACT SUSP 2 puffs in each nostril daily FLONASE 50 MCG/ACT SUSP 995185 FLUTICASONE PROPIONATE Inactive ATENOLOL 50 MG TABS Take one by mouth daily ATENOLOL 50 MG TABS 092119 ATENOLOL Inactive CETIRIZINE HCL 10 MG TABS 1 po qd as needed for allergies CETIRIZINE HCL 10 MG TABS 0698082 CETIRIZINE HCL Inactive LEVAQUIN 750 MG TABS 1 po qod x 5 doses LEVAQUIN 750 MG TABS 713924 LEVOFLOXACIN Inactive GLYBURIDE 5 MG TAB Take one by mouth daily GLYBURIDE 5 MG TAB 934210 GLYBURIDE Inactive PREDNISONE 5 MG TAB Take one po qod PREDNISONE 5 MG TAB 714600 PREDNISONE Inactive PREDNISONE 20 MG TAB 2 tabs daily for 5 days, then 1 daily for 5 days PREDNISONE 20 MG TAB 962572 PREDNISONE Inactive FLONASE 50 MCG/ACT SUSP 2 puffs in each nostril daily FLONASE 50 MCG/ACT SUSP 338422 FLUTICASONE PROPIONATE Inactive SYMBICORT 160-4.5 MCG/ACT AERO 2 puff BID SYMBICORT 160-4.5 MCG/ACT AERO BUDESONIDE-FORMOTEROL FUMARATE Inactive PREDNISONE 5 MG TABS 1 po qod PREDNISONE 5 MG TABS 546994 PREDNISONE Inactive PREDNISONE 20 MG TAB 1 tablet daily for airway inflammation 02/25 PREDNISONE 20 MG TAB 496857 PREDNISONE Inactive SULFASALAZINE 500 MG ORAL TBEC 2 tabs BID SULFASALAZINE 500 MG ORAL TBEC 462593 SULFASALAZINE Inactive LASIX 20 MG TAB 1 tablet by mouth daily x 2 days LASIX 20 MG TAB 486592 FUROSEMIDE Inactive AMOXICILLIN 500 MG CAPS 2 po BID x 10 days AMOXICILLIN 500 MG CAPS 629176 AMOXICILLIN Inactive GLYBURIDE 5 MG TAB Take one by mouth daily GLYBURIDE 5 MG TAB 208096 GLYBURIDE Inactive AZITHROMYCIN 250 MG TABS 2 po qd x 1 day, then 1 po qd x 4 days AZITHROMYCIN 250 MG TABS 1767975 AZITHROMYCIN Inactive PREDNISONE 20 MG TAB 2 tabs daily for 3 days, 1 tab daily for 3 days, 1/2 tab daily for 2 days PREDNISONE 20 MG TAB 908644 PREDNISONE Inactive PREDNISONE 20 MG TAB 2 tabs daily for 5 days, then 1 daily for 5 days, then 0.5 for 4 days PREDNISONE 20 MG TAB 453559 PREDNISONE Inactive AZITHROMYCIN 250 MG TABS 2 po qd x 1 day, then 1 po qd x 4 days AZITHROMYCIN 250 MG TABS 4240398 AZITHROMYCIN Inactive PREDNISONE 20 MG TAB 2 tabs daily for 3 days, 1 tab daily for 3 days, 1/2 tab daily for 2 days PREDNISONE 20 MG TAB 037913 PREDNISONE Inactive Immunizations Vaccine Administration Date Value [...] Panel - Chemistry sodium, serum 132 mmol/L 054-861 7602/10/26 carbon dioxide, venous blood 22.8 mmol/L 21.0-32.0 potassium, serum 5.4 mmol/L 3.5-5.2 chloride, serum 98 mmol/L 98-107 blood glucose 424 mg/dL 65-110 urea nitrogen, blood 40 mg/dL 7-18 creatinine, serum 2.26 mg/dL 0.55-1.30 alanine aminotransferase (SGPT), serum 29 U/L -78 aspartate aminotransferase (SGOT), serum 24 U/L 15-37 calcium, serum 8.6 mg/dL 8.5-10.1 bilirubin, serum, total 0.60 mg/dL 0.00-1.00 sodium, serum 137 mmol/L 557-843 7613/06/06 carbon dioxide, venous blood 24.9 mmol/L 21.0-32.0 [...] % 11.6-14.8 platelet count 210 10^3/MM^3 10*3/mm3 051-332 1333/10/26 leukocyte count, blood 10.3 10^3/MM^3 10*3/mm3 4.6-10.2 [...] Panel - Chemistry sodium, serum 139 mmol/L 834-256 2378/03/17 carbon dioxide, venous blood 29.0 mmol/L 21.0-32.0 [...] Rate - Chemistry sodium, serum 136 mmol/L 039-980 0243/09/18 carbon dioxide, venous blood 24.3 mmol/L 21.0-32.0 [...] HGBA1C - Chemistry sodium, serum 139 mmol/L 392-461 6021/07/09 potassium, serum 5.4 mmol/L 3.5-5.2 chloride, serum [...] 8.5 % 4.3-6.0 sodium, serum 137 mmol/L 442-216 3983/02/12 potassium, serum 5.1 mmol/L 3.5-5.2 chloride, serum 103 mmol/L 98-107 carbon dioxide, venous blood 24.4 mmol/L 21.0-32.0 blood glucose 261 mg/dL 65-110 calcium, serum 9.0 mg/dL 8.5-10.1 urea nitrogen, blood 44 mg/dL 7-18 creatinine, serum 2.37 mg/dL 0.55-1.30 Lab Report: Lipid Panel - Chemistry cholesterol, serum 139 mg/dL 957-387 3571/09/10 triglyceride, serum, fasting 176 mg/dL 30-200 HDL cholesterol, serum 45 mg/dL 32-96 LDL cholesterol, serum 59 mg/dL 0-130 Lab Report: MICROALBUMIN - Chemistry albumin/creatinine ratio, urine 30 - 300 mg/g mg/g{creat} 0-29 Lab Report: MICROALBUMIN - Lab microalbumin, urine 30 0-19 Lab Report: Uric Acid - Chemistry uric acid, serum 6.3 mg/dL 2.6-7.2 Encounters Code Encounter Date Provider Facility CPT-45280 Level 4 Est. Patient 11:51:23 CDT Simon Castillo MD [facility] CPT-00419 Level 4 Est. Patient 14:32:04 CDT Neto Oshea DO [facility] CPT-26208 Level 3 Est. Patient 08:41:43 CDT Giles Tatum [facility] CPT-61137 Level 3 Est. Patient 08:40:53 CDT Giles Tatum [facility] CPT-02673 Level 3 Est. Patient 08:36:52 CDT Giles Nashtico [facility] CPT-71374 Level 3 Est. Patient 09:08:44 CDT Giles Nashtico [facility] CPT-46778 Level 4 Est. Patient 09:17:32 ANIMAL CHIROPRACTOR Simon Castillo MD [facility] CPT-79570 Level 3 Est. Patient 11:22:22 ANIMAL CHIROPRACTOR Simon Castillo MD [facility] CPT-64062 Level 3 Est. Patient 09:02:14 CDT Simon Castillo MD [facility] CPT-66624 Level 4 Est. Patient 08:47:25 CDT Simon Castillo MD [facility] CPT-34822 Level 4 Est. Patient 10:17:25 CDT Simon Castillo MD [facility] CPT-87432 Level 4 Est. Patient 10:10:09 ANIMAL CHIROPRACTOR Simon Castillo MD [facility] CPT-18659 Level 4 Est. Patient 11:48:19 CDT Simon Castillo MD [facility] CPT-14634 Level 4 Est. Patient 08:59:29 CDT Simon Castillo MD [facility] CPT-93000 Level 4 Est. Patient 10:52:51 ANIMAL CHIROPRACTOR Simon Castillo MD [facility] CPT-37786 Level 4 Est. Patient 11:50:30 CDT Simon Castillo MD [facility] CPT-21537 Level 4 Est. Patient 09:54:46 CDT Simon Castillo MD [facility] CPT-83210 Level 3 Est. Patient 11:10:14 CDT Simon Castillo MD [facility] CPT-69304 Level 4 Est. Patient 09:44:02 CDT Simon Castillo MD [facility] CPT-50749 Level 3 Est. Patient 09:27:48 CDT Simon Castillo MD [facility] CPT-77623 Level 3 Est. Patient 09:58:06 ANIMAL CHIROPRACTOR Simon Castillo MD [facility] CPT-18554 Level 3 Est. Patient 09:51:35 CDT Simon Castillo MD [facility] Procedures Code Procedure Name Date Entry Date Standard Description CPT-G0438 Initial Annual Wellness Exam 08:57:30 CDT CPT-43239 Chest 2V Frontal and Lat - XRAY USE ONLY 09:00:14 CDT CPT-03844 Venipuncture Draw Fee 13:33:02 CDT CPT-78625 Bone Density 09:37:49 ANIMAL CHIROPRACTOR CPT-78065 Fluzone High Dose 17:20:42 CDT CPT-49079 Prevnar 13 17:20:42 CDT CPT-73268 Administration 2+ single or combination vaccines inc oral 17:20:42 CDT CPT-75658 Administration single or combination vaccine inc oral 17 :20:42 CDT CPT-40960 Hand comp min 3V 09:24:38 CDT CPT-43337 Venipuncture Draw Fee 08:07:29 ANIMAL CHIROPRACTOR CPT-28691 Venipuncture Draw Fee 09:02:51 ANIMAL CHIROPRACTOR CPT-74951 Venipuncture Draw Fee 12:45:08 ANIMAL CHIROPRACTOR CPT-16968 Venipuncture Draw Fee 09:25:31 CDT CPT-G0008 Administration of Influenza Virus Vaccine 14:41:29 CDT CPT-48314 Fluzone High-Dose Intramuscular Suspension 14:41:29 CDT CPT-Cryo Cryotherapy 11:48:20 CDT CPT-05157 EKG Trac and Interp 09:21:58 CDT CPT-12637 Chest 2V Frontal and Lat 09:21:58 CDT CPT-Cryo Cryotherapy 10:54:51 ANIMAL CHIROPRACTOR CPT-94593 Administration 2+ single or combination vaccines inc oral 10:42:19 CDT CPT-65365 Administration single or combination vaccine inc oral 10 :42:19 CDT CPT-97117 Pneumovax 10:42:19 CDT CPT-97019 Influenza High Dose age 65+ 10:42:19 CDT CPT-58241 Administration single or combination vaccine inc oral 13 :18:54 CDT CPT-28563 Influenza High Dose age 65+ 13:18:54 CDT CPT-78380 Venipuncture Draw Fee 11:53:16 CDT CPT-69331 LS spine comp w obliq 11:03:13 CDT CPT-Cryo Cryotherapy 08:27:16 ANIMAL CHIROPRACTOR CPT-82354 Administration single or combination vaccine inc oral 10 :56:34 CDT CPT-16482 Influenza High Dose age 65+ 10:56:34 CDT
--- OUTSIDE RECORDS SUMMARY | 2018-03-31 17:17 | XMS REPORT | Clinical Summary ---
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 Simon Castillo MD Long-term [...] abrasion, face, infected 910.1 Active Giles Tatum [employer] Abrasion or friction burn of face, neck, and scalp except eye, infected Other injury of unspecified body region, initial encounter 879.8 Active Giles Tatum [employer] Open wound(s) (multiple) of unspecified site(s) except limbs, without mention of complication Lesion of skin of face 709.9 Active Giles Tatum [employer] Unspecified disorder of skin and subcutaneous tissue [...] OF ICD-V13.89 Kerry Castillo MD Obesity ICD-278.00 Inactive Simon Castillo MD 2013 Actinic keratosis ICD-702.0 Inactive Simon Castillo MD Chest pain ICD-786.50 Inactive Simon Castillo MD Cough ICD-786.2 Inactive Simon Castillo MD Eczema ICD-692.9 Inactive Simon Castillo MD 02/27 Bronchitis, acute ICD-466.0 Inactive Simon Castillo MD Tinea pedis ICD-110.4 Inactive Simon Castillo MD Hand pain, bilateral ICD-729.5 Kerry Castillo MD 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, 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 ICD-V58.65 Inactive Simon Castillo MD Hand pain, bilateral ICD-729.5 Kerry Castillo MD 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 Inactive Simon Castillo MD Pharyngitis ICD-462 Kerry Castillo MD Dyspnea ICD-786.09 Inactive Simon Castillo MD 2016 Peripheral edema ICD-782.3 Kerry Castillo MD Pneumonia, right lower lobe ICD-486 Inactive Simon Castillo MD Sinusitis, acute ICD-461.9 Inactive Simon Castillo MD Dyspnea ICD-786.09 Inactive Simon Castillo MD 2016 Medication List Medication Instructions Start Date Stop Date Generic Name NDC Status Provider Patient Instruction BUMETANIDE 0.5 MG ORAL TABLET 1 po qd BUMETANIDE 23408123895 Active Simon Castillo MD Active AUGMENTIN 875-125 MG ORAL TABLET 1 po BID x 10 days AMOXICILLIN-POT CLAVULANATE 15659197601 No Longer Active Simon Castillo MD Active PIOGLITAZONE HCL 30 MG ORAL TABLET 1 po qd PIOGLITAZONE HCL 63353646990 Active Simon Castillo MD Active GLIMEPIRIDE 4 MG ORAL TABLET 1 po BID GLIMEPIRIDE 79353892781 Active Simon Castillo MD Active ASPIRIN EC 81 MG ORAL TABLET DELAYED RELEASE 1 po qd ASPIRIN 25130776302 Active Simon Castillo MD Active CLOTRIMAZOLE 1 % EXTERNAL CREAM Apply to affected area of feet twice daily PRN Rash CLOTRIMAZOLE 89122612417 No Longer Active Simno Castillo MD Active PREDNISONE 5 MG ORAL TABLET 1 po BID PREDNISONE 33819237611 Active Dolly MCDERMOTT Active FISH OIL 1000 MG ORAL CAPSULE DELAYED RELEASE 1 po BID OMEGA- 3 FATTY ACIDS 85860565970 Active Simon Castillo MD Active LISINOPRIL 10 MG ORAL TABLET 1 p qd LISINOPRIL 63376148655 Active Simon Castillo MD Active CLARITIN 10 MG ORAL TABLET 1 tablet by mouth daily as needed for allergies LORATADINE 77343580082 No Longer Active Simon Castillo MD Active TRIAMCINOLONE ACETONIDE 0.1 % EXTERNAL OINTMENT Apply to affected areas TID for up to 2 weeks TRIAMCINOLONE ACETONIDE 75861864035 No Longer Active Simon Castillo MD Active LASIX 20 MG ORAL TABLET 1 tablet by mouth daily x 2 days FUROSEMIDE 51933300000 No Longer Active Simon Castillo MD Active SULFASALAZINE 500 MG ORAL TABLET DELAYED RELEASE 2 tabs BID 02/26 SULFASALAZINE 51908407932 No Longer Active Neto Oshea DO Active PREDNISONE 20 MG ORAL TABLET 2 tabs daily for 3 days, 1 tab daily for 3 days, 1/2 tab daily for 2 days PREDNISONE 47691166498 No Longer Active Giles Tatum APRN Active PREDNISONE 20 MG ORAL TABLET 1 tablet daily for airway inflammation PREDNISONE 82480197965 No Longer Active Giles Tatum APRN Active AZITHROMYCIN 250 MG ORAL TABLET 2 po qd x 1 day, then 1 po qd x 4 days 01/28 AZITHROMYCIN 96661543801 No Longer Active Giles Tatum APRN Active HYDROCODONE-ACETAMINOPHEN 5-325 MG ORAL TABLET 1 tab by mouth 8 hours as needed for pain HYDROCODONE-ACETAMINOPHEN 66496619505 Active Simon Castillo MD Active TRAMADOL HCL 50 MG ORAL TABLET 1 po q6hr PRN Pain TRAMADOL HCL 90715782874 No Longer Active Simon Castillo MD Active PREDNISONE 5 MG ORAL TABLET 1 po qod PREDNISONE 20800710760 No Longer Active Simon Castillo MD Active SYMBICORT 160-4.5 MCG/ACT INHALATION AEROSOL 2 puff BID BUDESONIDE-FORMOTEROL FUMARATE 60626622857 No Longer Active Simon Castillo MD Active FLONASE 50 MCG/ACT NASAL SUSPENSION 2 puffs in each nostril daily FLUTICASONE PROPIONATE 09853410204 No Longer Active Simon Castillo MD Active PREDNISONE 20 MG ORAL TABLET 2 tabs daily for 5 days, then 1 daily for 5 days PREDNISONE 90181394916 No Longer Active Simon Castillo MD Active PREDNISONE 20 MG ORAL TABLET 2 tabs daily for 5 days, then 1 daily for 5 days , then 0.5 for 4 days PREDNISONE 53826165815 No Longer Active Simon Castillo MD Active PREDNISONE 20 MG ORAL TABLET 2 tabs daily for 3 days, 1 tab daily for 3 days, 1/2 tab daily for 2 days PREDNISONE 84258727497 No Longer Active Simon Castillo MD Active AZITHROMYCIN 250 MG ORAL TABLET 2 po qd x 1 day, then 1 po qd x 4 days 03/16 AZITHROMYCIN 29069151268 No Longer Active Simon Castillo MD Active CARVEDILOL 6.25 MG ORAL TABLET 1 po BID CARVEDILOL 22286436781 Active Simon Castillo MD Active LISINOPRIL-HYDROCHLOROTHIAZIDE 20-12.5 MG ORAL TABLET 1/2 tab by mouth daily LISINOPRIL-HYDROCHLOROTHIAZIDE 67321556124 No Longer Active Simon Castillo MD Active TRAMADOL HCL 50 MG ORAL TABLET 1-2 tablets every 6 hours as needed for pain TRAMADOL HCL 15115538058 Active Giles Tatum APRN Active PREDNISONE 5 MG ORAL TABLET Take one po qod PREDNISONE 86610669946 No Longer Active Simon Castillo MD Active GLYBURIDE 5 MG ORAL TABLET Take one by mouth daily GLYBURIDE 99173510279 No Longer Active Simon Castillo MD Active LEVAQUIN 750 MG ORAL TABLET 1 po qod x 5 doses LEVOFLOXACIN 96296286987 No Longer Active Simon Castillo MD Active CETIRIZINE HCL 10 MG ORAL TABLET 1 po qd as needed for allergies CETIRIZINE HCL 26441517576 No Longer Active Simon Castillo MD Active BILBERRY CAPSULE 1 tab daily BILBERRY (VACCINIUM MYRTILLUS) CAPS 65856280273 Active Simon Castillo MD Active ATENOLOL 50 MG ORAL TABLET Take one by mouth daily ATENOLOL 73505367177 No Longer Active Simon Castillo MD Active FLONASE 50 MCG/ACT NASAL SUSPENSION 2 puffs in each nostril daily FLUTICASONE PROPIONATE 60172499979 No Longer Active Simon Castillo MD Active GLYBURIDE 5 MG ORAL TABLET Take one by mouth daily GLYBURIDE 62989562424 No Longer Active Simon Castillo MD Active SYMBICORT 80-4.5 MCG/ACT INHALATION AEROSOL 2 puffs twice a day BUDESONIDE-FORMOTEROL FUMARATE 56710461330 No Longer Active Simon Castillo MD Active PREDNISONE 20 MG ORAL TABLET 2 tabs daily for 4 days, 1 tab daily for 4 days, 1/2 tab daily for 4 days PREDNISONE 47226636049 No Longer Active Simon Castillo MD Active AMOXICILLIN 500 MG ORAL CAPSULE 2 po BID x 10 days AMOXICILLIN 11104594058 No Longer Active Simon Castillo MD Active METFORMIN HCL 1000 MG ORAL TABLET 1 by [facility] twice a day METFORMIN HCL 07099140018 No Longer Active Simno Castillo MD Active LUTEIN-ZEAXANTHIN 6-1 MG ORAL TABLET Take 2 by mouth daily LUTEIN- ZEAXANTHIN 58673086271 Active Simon Castillo MD Active IBUPROFEN 800 MG ORAL TABLET Take 1 tab every 6 hrs prn IBUPROFEN 23506060869 No Longer Active Simon Castillo MD Active GLYBURIDE 2.5 MG ORAL TABLET Take one by mouth daily GLYBURIDE 82454675610 No Longer Active Simon Castillo MD Active LANCETS 2 qd LANCETS 61179346949 Active Pamela Conde Active ACACIA CONTOUR TEST IN VITRO STRIP Use with testing twice daily GLUCOSE BLOOD 70792284383 Active Simon Castillo MD Active GLYBURIDE 2.5 MG ORAL TABLET Take one by mouth daily GLYBURIDE 2.5 MG ORAL TABLET 485393 GLYBURIDE Inactive PREDNISONE 20 MG ORAL TABLET 2 tabs daily for 4 days, 1 tab daily for 4 days, 1/2 tab daily for 4 days PREDNISONE 20 MG ORAL TABLET 193316 PREDNISONE Inactive SYMBICORT 80-4.5 MCG/ACT INHALATION AEROSOL 2 puffs twice a day SYMBICORT 80-4.5 MCG/ACT INHALATION AEROSOL BUDESONIDE- FORMOTEROL FUMARATE Inactive FLONASE 50 MCG/ACT NASAL SUSPENSION 2 puffs in each nostril daily FLONASE 50 MCG/ACT NASAL SUSPENSION 5653136 FLUTICASONE PROPIONATE Inactive ATENOLOL 50 MG ORAL TABLET Take one by mouth daily ATENOLOL 50 MG ORAL TABLET 232262 ATENOLOL Inactive CETIRIZINE HCL 10 MG ORAL TABLET 1 po qd as needed for allergies CETIRIZINE HCL 10 MG ORAL TABLET 8146299 CETIRIZINE HCL Inactive LEVAQUIN 750 MG ORAL TABLET 1 po qod x 5 doses LEVAQUIN 750 MG ORAL TABLET 136825 LEVOFLOXACIN Inactive GLYBURIDE 5 MG ORAL TABLET Take one by mouth daily GLYBURIDE 5 MG ORAL TABLET 910565 GLYBURIDE Inactive PREDNISONE 5 MG ORAL TABLET Take one po qod PREDNISONE 5 MG ORAL TABLET 310378 PREDNISONE Inactive PREDNISONE 20 MG ORAL TABLET 2 tabs daily for 5 days, then 1 daily for 5 days PREDNISONE 20 MG ORAL TABLET 855338 PREDNISONE Inactive FLONASE 50 MCG/ACT NASAL SUSPENSION 2 puffs in each nostril daily FLONASE 50 MCG/ACT NASAL SUSPENSION 4554620 FLUTICASONE PROPIONATE Inactive SYMBICORT 160-4.5 MCG/ACT INHALATION AEROSOL 2 puff BID SYMBICORT 160-4.5 MCG/ACT INHALATION AEROSOL BUDESONIDE-FORMOTEROL FUMARATE Inactive PREDNISONE 5 MG ORAL TABLET 1 po qod PREDNISONE 5 MG ORAL TABLET 619196 PREDNISONE Inactive PREDNISONE 20 MG ORAL TABLET 1 tablet daily for airway inflammation PREDNISONE 20 MG ORAL TABLET 134674 PREDNISONE Inactive SULFASALAZINE 500 MG ORAL TABLET DELAYED RELEASE 2 tabs BID 02/26 SULFASALAZINE 500 MG ORAL TABLET DELAYED RELEASE 179008 SULFASALAZINE Inactive LASIX 20 MG ORAL TABLET 1 tablet by mouth daily x 2 days LASIX 20 MG ORAL TABLET 861539 FUROSEMIDE Inactive CLARITIN 10 MG ORAL TABLET 1 tablet by mouth daily as needed for allergies CLARITIN 10 MG ORAL TABLET 152941 LORATADINE Inactive CLOTRIMAZOLE 1 % EXTERNAL CREAM Apply to affected area of feet twice daily PRN Rash CLOTRIMAZOLE 1 % EXTERNAL CREAM 288240 CLOTRIMAZOLE Inactive AMOXICILLIN 500 MG ORAL CAPSULE 2 po BID x 10 days AMOXICILLIN 500 MG ORAL CAPSULE 538724 AMOXICILLIN Inactive GLYBURIDE 5 MG ORAL TABLET Take one by mouth daily GLYBURIDE 5 MG ORAL TABLET 592299 GLYBURIDE Inactive AZITHROMYCIN 250 MG ORAL TABLET 2 po qd x 1 day, then 1 po qd x 4 days 03/16 AZITHROMYCIN 250 MG ORAL TABLET 341177 AZITHROMYCIN Inactive PREDNISONE 20 MG ORAL TABLET 2 tabs daily for 3 days, 1 tab daily for 3 days, 1/2 tab daily for 2 days PREDNISONE 20 MG ORAL TABLET 206660 PREDNISONE Inactive PREDNISONE 20 MG ORAL TABLET 2 tabs daily for 5 days, then 1 daily for 5 days , then 0.5 for 4 days PREDNISONE 20 MG ORAL TABLET 249197 PREDNISONE Inactive AZITHROMYCIN 250 MG ORAL TABLET 2 po qd x 1 day, then 1 po qd x 4 days 01/28 AZITHROMYCIN 250 MG ORAL TABLET 434111 AZITHROMYCIN Inactive PREDNISONE 20 MG ORAL TABLET 2 tabs daily for 3 days, 1 tab daily for 3 days, 1/2 tab daily for 2 days PREDNISONE 20 MG ORAL TABLET 804154 PREDNISONE Inactive TRIAMCINOLONE ACETONIDE 0.1 % EXTERNAL OINTMENT Apply to affected areas TID for up to 2 weeks TRIAMCINOLONE ACETONIDE 0.1 % EXTERNAL OINTMENT 4002575 TRIAMCINOLONE ACETONIDE Inactive AUGMENTIN 875-125 MG ORAL TABLET 1 po BID x 10 days AUGMENTIN 875-125 MG ORAL TABLET 754685 AMOXICILLIN-POT CLAVULANATE Inactive Immunizations Vaccine Administration Date [...] Peptide - Chemistry sodium, serum 142 mmol/L 052-957 4825/07/18 potassium, serum 5.0 mmol/L 3.5-5.2 chloride, serum [...] Panel - Chemistry sodium, serum 140 mmol/L 902-080 9659/07/13 carbon dioxide, venous blood 23.7 mmol/L 21.0-32.0 [...] dipstick Negative Negative sodium, serum 142 mmol/L 043-289 1757/01/08 carbon dioxide, venous blood 23.9 mmol/L 21.0-32.0 [...] Negative;Positive Encounters Code Encounter Date Provider Facility CPT-92627 Level 3 Est. Patient 12:04:38 TRAIN EXAMINER Giles Tatum [facility] [place] CPT-80284 Level 3 Est. Patient 11:57:09 TRAIN EXAMINER Giles Tatum [facility] [place] CPT-27854 Level 3 Est. Patient 11:48:57 TRAIN EXAMINER Giles Tatum [facility] [place] CPT-56926 Level 4 Est. Patient 09:54:36 CDT Simon Castillo MD [facility] CPT-29334 Level 4 Est. Patient 08:48:38 CDT Simon Castillo MD [facility] CPT-34643 Level 4 Est. Patient 09:54:08 CDT Simon Castillo MD [facility] CPT-91113 Level 4 Est. Patient 16:11:23 CDT Simon Castillo MD [facility] CPT-46751 Level 4 Est. Patient 09:29:28 TRAIN EXAMINER Simon Castillo MD [facility] CPT-65110 Level 3 Est. Patient 09:18:25 CDT Simon Castillo MD [facility] CPT-61802 Level 4 Est. Patient 11:51:23 CDT Simon Castillo MD [facility] CPT-47801 Level 4 Est. Patient 14:32:04 CDT Neto Oshea DO [facility] CPT-04687 Level 3 Est. Patient 08:41:43 CDT Jillina Nashamayal [facility] CPT-40808 Level 3 Est. Patient 08:40:53 CDT Jillina Nashzell [facility] CPT-50753 Level 3 Est. Patient 08:36:52 CDT Jillina Nashzell [facility] CPT-68787 Level 3 Est. Patient 09:08:44 CDT Jilltriston Nashzell [facility] CPT-80536 Level 4 Est. Patient 09:17:32 TRAIN EXAMINER Simon Castillo MD [facility] CPT-45835 Level 3 Est. Patient 11:22:22 TRAIN EXAMINER Simon Castillo MD [facility] CPT-55617 Level 3 Est. Patient 09:02:14 CDT Simon Castillo MD [facility] CPT-41070 Level 4 Est. Patient 08:47:25 CDT Simon Castillo MD [facility] CPT-67328 Level 4 Est. Patient 10:17:25 CDT Simon Castillo MD [facility] CPT-14258 Level 4 Est. Patient 10:10:09 TRAIN EXAMINER Simon Castillo MD [facility] CPT-49051 Level 4 Est. Patient 11:48:19 CDT Simon Castillo MD [facility] CPT-80723 Level 4 Est. Patient 08:59:29 CDT Simon Castillo MD [facility] CPT-52447 Level 4 Est. Patient 10:52:51 TRAIN EXAMINER Simon Castillo MD [facility] CPT-61386 Level 4 Est. Patient 11:50:30 CDT Simon Castillo MD [facility] CPT-05892 Level 4 Est. Patient 09:54:46 CDT Simon Castillo MD [facility] CPT-34423 Level 3 Est. Patient 11:10:14 CDT Simno Castillo MD [facility] CPT-91278 Level 4 Est. Patient 09:44:02 CDT Simon Castillo MD [facility] CPT-28053 Level 3 Est. Patient 09:27:48 CDT Simon Castillo MD [facility] CPT-95359 Level 3 Est. Patient 09:58:06 TRAIN EXAMINER Simon Castillo MD [facility] CPT-19702 Level 3 Est. Patient 09:51:35 CDT Simon Castillo MD [facility] Procedures Code Procedure Name Date Entry Date Standard Description CPT-12572 EKG Trac and Interp - XRAY USE ONLY 12:19:18 TRAIN EXAMINER 09/29 CPT-41278 Chest, 2 views 12:19:17 TRAIN EXAMINER CPT-Cryo Cryotherapy 09:54:37 CDT CPT-75263 First Vx - Ix admin for Medicare patients 09:13:10 CDT CPT-24162 Fluzone High-Dose Intramuscular Suspension 09:13:10 CDT CPT-G0439 [facility] Annual Wellness Exam 09:41:17 CDT CPT-20387 Lipid - LAB USE ONLY 17:15:33 CDT CPT-97423 HGBA1C - LAB USE ONLY 17:15:33 CDT CPT-28473 CMP - LAB USE ONLY 17:15:33 CDT CPT-80425 Venipuncture Draw Fee 17:15:33 CDT CPT-[facility] Transitional Care Mgmt-High 11:01:28 TRAIN EXAMINER CPT-39942 First Vx - Ix admin for Medicare patients 17:33:39 CDT CPT-62269 Fluzone High-Dose Intramuscular Suspension 17:33:39 CDT CPT-G0438 Initial Annual Wellness Exam 08:57:30 CDT CPT-42547 Chest 2V Frontal and Lat - XRAY USE ONLY 09:00:14 CDT CPT-22244 Venipuncture Draw Fee 13:33:02 CDT CPT-22759 Bone Density 09:37:49 TRAIN EXAMINER CPT-25988 Fluzone High Dose 17:20:42 CDT CPT-88173 Prevnar 13 17:20:42 CDT CPT-55485 Administration 2+ single or combination vaccines inc oral 17:20:42 CDT CPT-76111 Administration single or combination vaccine inc oral 17 :20:42 CDT CPT-59131 Hand comp min 3V 09:24:38 CDT CPT-03054 Venipuncture Draw Fee 08:07:29 TRAIN EXAMINER CPT-43104 Venipuncture Draw Fee 09:02:51 TRAIN EXAMINER CPT-96780 Venipuncture Draw Fee 12:45:08 TRAIN EXAMINER CPT-34240 Venipuncture Draw Fee 09:25:31 CDT CPT-G0008 Administration of Influenza Virus Vaccine 14:41:29 CDT CPT-94808 Fluzone High-Dose Intramuscular Suspension 14:41:29 CDT CPT-Cryo Cryotherapy 11:48:20 CDT CPT-48928 EKG Trac and Interp 09:21:58 CDT CPT-84791 Chest 2V Frontal and Lat 09:21:58 CDT CPT-Cryo Cryotherapy 10:54:51 TRAIN EXAMINER CPT-86806 Administration 2+ single or combination vaccines inc oral 10:42:19 CDT CPT-31784 Administration single or combination vaccine inc oral 10 :42:19 CDT CPT-44791 Pneumovax 10:42:19 CDT CPT-45311 Influenza High Dose age 65+ 10:42:19 CDT CPT-39836 Administration single or combination vaccine inc oral 13 :18:54 CDT CPT-16282 Influenza High Dose age 65+ 13:18:54 CDT CPT-31084 Venipuncture Draw Fee 11:53:16 CDT CPT-80511 LS spine comp w obliq 11:03:13 CDT CPT-Cryo Cryotherapy 08:27:16 TRAIN EXAMINER CPT-06856 Administration single or combination vaccine inc oral 10 :56:34 CDT CPT-13600 Influenza High Dose age 65+ 10:56:34 CDT
--- OUTSIDE RECORDS SUMMARY | 2018-03-31 17:18 | XMS REPORT | Clinical Summary ---
Author Author Admin, E Organization [employer] Address Unknown Phone Unavailable Allergies, Adverse Reactions, Alerts Allergy Name Reaction Description Start Date Severity Status Provider No Known Allergies Dolyl Marvin MATTHEWA Conditions or Problems Problem Name [...] abrasion, face, infected 910.1 Active Giles Tatum [employer] Abrasion or friction burn of face, neck, and scalp except eye, infected Other injury of unspecified body region, initial encounter 879.8 Active Giles Tatum [employer] Open wound(s) (multiple) of unspecified site(s) except limbs, without mention of complication Lesion of skin of face 709.9 Active Giles Tatum [employer] Unspecified disorder of skin and subcutaneous tissue [...] bilateral ICD-729.5 Kerry Castillo MD 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, 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 Inactive Simon Castillo MD Hand [...] MG ORAL TABLET 1 po qd BUMETANIDE 42336267085 Active Simon Castillo MD Active AUGMENTIN 875-125 MG ORAL TABLET 1 po BID x 10 days AMOXICILLIN-POT CLAVULANATE 71420488194 No Longer Active Simon Castillo MD Active PIOGLITAZONE HCL 30 MG ORAL TABLET 1 po qd PIOGLITAZONE HCL 51503813222 Active Simon Castillo MD Active GLIMEPIRIDE 4 MG ORAL TABLET 1 po BID GLIMEPIRIDE 61292482580 Active Simon Castillo MD Active ASPIRIN EC 81 MG ORAL TABLET DELAYED RELEASE 1 po qd ASPIRIN 76980746925 Active Simon Castillo MD Active CLOTRIMAZOLE 1 % EXTERNAL CREAM Apply to affected area of feet twice daily PRN Rash CLOTRIMAZOLE 58673211899 No Longer Active Simon Castillo MD Active PREDNISONE 5 MG ORAL TABLET 1 po BID PREDNISONE 80374093819 Active Dolly MCDERMOTT Active FISH OIL 1000 MG ORAL CAPSULE DELAYED RELEASE 1 po BID OMEGA- 3 FATTY ACIDS 49790660297 Active Simon Castillo MD Active LISINOPRIL 10 MG ORAL TABLET 1 p qd LISINOPRIL 82783455851 Active Simon Castillo MD Active CLARITIN 10 MG ORAL TABLET 1 tablet by mouth daily as needed for allergies LORATADINE 29267696867 No Longer Active Simon Castillo MD Active TRIAMCINOLONE ACETONIDE 0.1 % EXTERNAL OINTMENT Apply to affected areas TID for up to 2 weeks TRIAMCINOLONE ACETONIDE 75569601711 No Longer Active Simon Castillo MD Active LASIX 20 MG ORAL TABLET 1 tablet by mouth daily x 2 days FUROSEMIDE 64410163188 No Longer Active Simon Castillo MD Active SULFASALAZINE 500 MG ORAL TABLET DELAYED RELEASE 2 tabs BID 02/26 SULFASALAZINE 37025808108 No Longer Active Neto Oshea DO Active PREDNISONE 20 MG ORAL TABLET 2 tabs daily for 3 days, 1 tab daily for 3 days, 1/2 tab daily for 2 days PREDNISONE 18375317753 No Longer Active Giles Tatum APRN Active PREDNISONE 20 MG ORAL TABLET 1 tablet daily for airway inflammation PREDNISONE 83440927787 No Longer Active Giles Tatum APRN Active AZITHROMYCIN 250 MG ORAL TABLET 2 po qd x 1 day, then 1 po qd x 4 days 01/28 AZITHROMYCIN 34568544889 No Longer Active Giles Tatum APRN Active HYDROCODONE-ACETAMINOPHEN 5-325 MG ORAL TABLET 1 tab by mouth 8 hours as needed for pain HYDROCODONE-ACETAMINOPHEN 76658055985 Active Simon Castillo MD Active TRAMADOL HCL 50 MG ORAL TABLET 1 po q6hr PRN Pain TRAMADOL HCL 75604386883 No Longer Active Simon Castillo MD Active PREDNISONE 5 MG ORAL TABLET 1 po qod PREDNISONE 12643249390 No Longer Active Simon Castillo MD Active SYMBICORT 160-4.5 MCG/ACT INHALATION AEROSOL 2 puff BID BUDESONIDE-FORMOTEROL FUMARATE 99218630766 No Longer Active Simon Castillo MD Active FLONASE 50 MCG/ACT NASAL SUSPENSION 2 puffs in each nostril daily FLUTICASONE PROPIONATE 65591593801 No Longer Active Simon Castillo MD Active PREDNISONE 20 MG ORAL TABLET 2 tabs daily for 5 days, then 1 daily for 5 days PREDNISONE 57822509110 No Longer Active Simon Castillo MD Active PREDNISONE 20 MG ORAL TABLET 2 tabs daily for 5 days, then 1 daily for 5 days , then 0.5 for 4 days PREDNISONE 62717297177 No Longer Active Simon Castillo MD Active PREDNISONE 20 MG ORAL TABLET 2 tabs daily for 3 days, 1 tab daily for 3 days, 1/2 tab daily for 2 days PREDNISONE 80600894678 No Longer Active Simon Castillo MD Active AZITHROMYCIN 250 MG ORAL TABLET 2 po qd x 1 day, then 1 po qd x 4 days 03/16 AZITHROMYCIN 52380532251 No Longer Active Simon Castillo MD Active CARVEDILOL 6.25 MG ORAL TABLET 1 po BID CARVEDILOL 09520425797 Active Simon Castillo MD Active LISINOPRIL-HYDROCHLOROTHIAZIDE 20-12.5 MG ORAL TABLET 1/2 tab by mouth daily LISINOPRIL-HYDROCHLOROTHIAZIDE 92432896716 No Longer Active Simon Castillo MD Active TRAMADOL HCL 50 MG ORAL TABLET 1-2 tablets every 6 hours as needed for pain TRAMADOL HCL 83405840531 Active Giles Nashtico HEMPHILL Active PREDNISONE 5 MG ORAL TABLET Take one po qod PREDNISONE 48720988622 No Longer Active Simon Castillo MD Active GLYBURIDE 5 MG ORAL TABLET Take one by mouth daily GLYBURIDE 12542997015 No Longer Active Simon Castillo MD Active LEVAQUIN 750 MG ORAL TABLET 1 po qod x 5 doses LEVOFLOXACIN 42374290978 No Longer Active Simon Castillo MD Active CETIRIZINE HCL 10 MG ORAL TABLET 1 po qd as needed for allergies CETIRIZINE HCL 00486351651 No Longer Active Simon Castillo MD Active BILBERRY CAPSULE 1 tab daily BILBERRY (VACCINIUM MYRTILLUS) CAPS 70169474135 Active Simon Castillo MD Active ATENOLOL 50 MG ORAL TABLET Take one by mouth daily ATENOLOL 12935005018 No Longer Active Simon Castillo MD Active FLONASE 50 MCG/ACT NASAL SUSPENSION 2 puffs in each nostril daily FLUTICASONE PROPIONATE 62254010642 No Longer Active Simon Castillo MD Active GLYBURIDE 5 MG ORAL TABLET Take one by mouth daily GLYBURIDE 37068240603 No Longer Active Simon Castillo MD Active SYMBICORT 80-4.5 MCG/ACT INHALATION AEROSOL 2 puffs twice a day BUDESONIDE-FORMOTEROL FUMARATE 37757356607 No Longer Active Simon Castillo MD Active PREDNISONE 20 MG ORAL TABLET 2 tabs daily for 4 days, 1 tab daily for 4 days, 1/2 tab daily for 4 days PREDNISONE 93599431992 No Longer Active Simon Castillo MD Active AMOXICILLIN 500 MG ORAL CAPSULE 2 po BID x 10 days AMOXICILLIN 72138655120 No Longer Active Simon Castillo MD Active METFORMIN HCL 1000 MG ORAL TABLET 1 by mount twice a day METFORMIN HCL 49852972754 No Longer Active Simon Castillo MD Active LUTEIN-ZEAXANTHIN 6-1 MG ORAL TABLET Take 2 by mouth daily LUTEIN- ZEAXANTHIN 36935469331 Active Simon Castillo MD Active IBUPROFEN 800 MG ORAL TABLET Take 1 tab every 6 hrs prn IBUPROFEN 38246168782 No Longer Active Simon Castillo MD Active GLYBURIDE 2.5 MG ORAL TABLET Take one by mouth daily GLYBURIDE 49927244010 No Longer Active Simon Castillo MD Active LANCETS 2 qd LANCETS 95994213750 Active Pamela Conde Active ACACIA CONTOUR TEST IN VITRO STRIP Use with testing twice daily GLUCOSE BLOOD 43571255524 Active Simon Castillo MD Active GLYBURIDE 2.5 MG ORAL TABLET Take one by mouth daily GLYBURIDE 2.5 MG ORAL TABLET 393667 GLYBURIDE Inactive PREDNISONE 20 MG ORAL TABLET 2 tabs daily for 4 days, 1 tab daily for 4 days, 1/2 tab daily for 4 days PREDNISONE 20 MG ORAL TABLET 188610 PREDNISONE Inactive SYMBICORT 80-4.5 MCG/ACT INHALATION AEROSOL 2 puffs twice a day SYMBICORT 80-4.5 MCG/ACT INHALATION AEROSOL BUDESONIDE- FORMOTEROL FUMARATE Inactive FLONASE 50 MCG/ACT NASAL SUSPENSION 2 puffs in each nostril daily FLONASE 50 MCG/ACT NASAL SUSPENSION 3509300 FLUTICASONE PROPIONATE Inactive ATENOLOL 50 MG ORAL TABLET Take one by mouth daily ATENOLOL 50 MG ORAL TABLET 569858 ATENOLOL Inactive CETIRIZINE HCL 10 MG ORAL TABLET 1 po qd as needed for allergies CETIRIZINE HCL 10 MG ORAL TABLET 0145715 CETIRIZINE HCL Inactive LEVAQUIN 750 MG ORAL TABLET 1 po qod x 5 doses LEVAQUIN 750 MG ORAL TABLET 747338 LEVOFLOXACIN Inactive GLYBURIDE 5 MG ORAL TABLET Take one by mouth daily GLYBURIDE 5 MG ORAL TABLET 491170 GLYBURIDE Inactive PREDNISONE 5 MG ORAL TABLET Take one po qod PREDNISONE 5 MG ORAL TABLET 436038 PREDNISONE Inactive PREDNISONE 20 MG ORAL TABLET 2 tabs daily for 5 days, then 1 daily for 5 days PREDNISONE 20 MG ORAL TABLET 696100 PREDNISONE Inactive FLONASE 50 MCG/ACT NASAL SUSPENSION 2 puffs in each nostril daily FLONASE 50 MCG/ACT NASAL SUSPENSION 6682378 FLUTICASONE PROPIONATE Inactive SYMBICORT 160-4.5 MCG/ACT INHALATION AEROSOL 2 puff BID SYMBICORT 160-4.5 MCG/ACT INHALATION AEROSOL BUDESONIDE-FORMOTEROL FUMARATE Inactive PREDNISONE 5 MG ORAL TABLET 1 po qod PREDNISONE 5 MG ORAL TABLET 124765 PREDNISONE Inactive PREDNISONE 20 MG ORAL TABLET 1 tablet daily for airway inflammation PREDNISONE 20 MG ORAL TABLET 958005 PREDNISONE Inactive SULFASALAZINE 500 MG ORAL TABLET DELAYED RELEASE 2 tabs BID 02/26 SULFASALAZINE 500 MG ORAL TABLET DELAYED RELEASE 346934 SULFASALAZINE Inactive LASIX 20 MG ORAL TABLET 1 tablet by mouth daily x 2 days LASIX 20 MG ORAL TABLET 765029 FUROSEMIDE Inactive CLARITIN 10 MG ORAL TABLET 1 tablet by mouth daily as needed for allergies CLARITIN 10 MG ORAL TABLET 925675 LORATADINE Inactive CLOTRIMAZOLE 1 % EXTERNAL CREAM Apply to affected area of feet twice daily PRN Rash CLOTRIMAZOLE 1 % EXTERNAL CREAM 008093 CLOTRIMAZOLE Inactive AMOXICILLIN 500 MG ORAL CAPSULE 2 po BID x 10 days AMOXICILLIN 500 MG ORAL CAPSULE 707620 AMOXICILLIN Inactive GLYBURIDE 5 MG ORAL TABLET Take one by mouth daily GLYBURIDE 5 MG ORAL TABLET 162151 GLYBURIDE Inactive AZITHROMYCIN 250 MG ORAL TABLET 2 po qd x 1 day, then 1 po qd x 4 days 03/16 AZITHROMYCIN 250 MG ORAL TABLET 293351 AZITHROMYCIN Inactive PREDNISONE 20 MG ORAL TABLET 2 tabs daily for 3 days, 1 tab daily for 3 days, 1/2 tab daily for 2 days PREDNISONE 20 MG ORAL TABLET 170229 PREDNISONE Inactive PREDNISONE 20 MG ORAL TABLET 2 tabs daily for 5 days, then 1 daily for 5 days , then 0.5 for 4 days PREDNISONE 20 MG ORAL TABLET 059742 PREDNISONE Inactive AZITHROMYCIN 250 MG ORAL TABLET 2 po qd x 1 day, then 1 po qd x 4 days 01/28 AZITHROMYCIN 250 MG ORAL TABLET 666852 AZITHROMYCIN Inactive PREDNISONE 20 MG ORAL TABLET 2 tabs daily for 3 days, 1 tab daily for 3 days, 1/2 tab daily for 2 days PREDNISONE 20 MG ORAL TABLET 696769 PREDNISONE Inactive TRIAMCINOLONE ACETONIDE 0.1 % EXTERNAL OINTMENT Apply to affected areas TID for up to 2 weeks TRIAMCINOLONE ACETONIDE 0.1 % EXTERNAL OINTMENT 5072310 TRIAMCINOLONE ACETONIDE Inactive AUGMENTIN 875-125 MG ORAL TABLET 1 po BID x 10 days AUGMENTIN 875-125 MG ORAL TABLET 929181 AMOXICILLIN-POT CLAVULANATE Inactive Immunizations Vaccine Administration Date [...] Peptide - Chemistry sodium, serum 142 mmol/L 377-278 8714/07/18 potassium, serum 5.0 mmol/L 3.5-5.2 chloride, serum [...] Panel - Chemistry sodium, serum 140 mmol/L 710-624 9537/07/13 carbon dioxide, venous blood 23.7 mmol/L 21.0-32.0 [...] ... - Chemistry sodium, serum 142 mmol/L 257-371 6033/01/08 carbon dioxide, venous blood 23.9 mmol/L 21.0-32.0 [...] Panel - Chemistry cholesterol, serum 126 mg/dL 137-165 3313/02/07 triglyceride, serum, fasting 83 mg/dL 30-200 HDL cholesterol, serum 70 mg/dL 32-96 LDL cholesterol, serum 39 mg/dL 0-130 hemoglobin A1C, blood, as % of total hemoglobin 8.3 % 4.3-6.0 sodium, serum 141 mmol/L 053-625 8375/02/07 carbon dioxide, venous blood 26.0 mmol/L 21.0-32.0 [...] Negative;Positive Encounters Code Encounter Date Provider Facility CPT-37481 Level 3 Est. Patient 12:04:38 [employer] Giles Tatum [facility] CPT-02415 Level 3 Est. Patient 11:57:09 [employer] Giles Tatum [facility] CPT-12038 Level 3 Est. Patient 11:48:57 [employer] Giles Tatum [facility] CPT-51980 Level 4 Est. Patient 09:54:36 CDT Simon Castillo MD [facility] CPT-60766 Level 4 Est. Patient 08:48:38 CDT Simon Castillo MD [facility] CPT-52007 Level 4 Est. Patient 09:54:08 CDT Simon Castillo MD [facility] CPT-18722 Level 4 Est. Patient 16:11:23 CDT Simon Castillo MD [facility] CPT-10406 Level 4 Est. Patient 09:29:28 [employer] Simon Castillo MD [facility] CPT-51235 Level 3 Est. Patient 09:18:25 CDT Simon Castillo MD [facility] CPT-90366 Level 4 Est. Patient 11:51:23 CDT Simon Castillo MD [facility] CPT-56405 Level 4 Est. Patient 14:32:04 CDT Neto Oshea DO [facility] CPT-85667 Level 3 Est. Patient 08:41:43 CDT Giles Tatum [facility] CPT-52296 Level 3 Est. Patient 08:40:53 CDT Jillina Frazell [facility] CPT-48397 Level 3 Est. Patient 08:36:52 CDT Jillina Nashzell [facility] CPT-60746 Level 3 Est. Patient 09:08:44 CDT Jimeli Salcidol [facility] CPT-84705 Level 4 Est. Patient 09:17:32 [employer] Simon Castillo MD [facility] CPT-48088 Level 3 Est. Patient 11:22:22 [employer] Simon Castillo MD [facility] CPT-05512 Level 3 Est. Patient 09:02:14 CDT Simon Castillo MD [facility] CPT-08477 Level 4 Est. Patient 08:47:25 CDT Simon Castillo MD [facility] CPT-81217 Level 4 Est. Patient 10:17:25 CDT Simon Castillo MD [facility] CPT-97404 Level 4 Est. Patient 10:10:09 [employer] Simon Castillo MD [facility] CPT-64920 Level 4 Est. Patient 11:48:19 CDT Simon Castillo MD [facility] CPT-32394 Level 4 Est. Patient 08:59:29 CDT Simon Castillo MD [facility] CPT-86640 Level 4 Est. Patient 10:52:51 [employer] Simon Castillo MD [facility] CPT-66063 Level 4 Est. Patient 11:50:30 CDT Simon Castillo MD [facility] CPT-36766 Level 4 Est. Patient 09:54:46 CDT Simon Castillo MD [facility] CPT-91365 Level 3 Est. Patient 11:10:14 CDT Simon Castillo MD [facility] CPT-13566 Level 4 Est. Patient 09:44:02 CDT Simon Castillo MD [facility] CPT-63627 Level 3 Est. Patient 09:27:48 CDT Simon Castillo MD [facility] CPT-36583 Level 3 Est. Patient 09:58:06 [employer] Simon Castillo MD [facility] CPT-42494 Level 3 Est. Patient 09:51:35 CDT Simon Castillo MD [facility] Procedures Code Procedure Name Date Entry Date Standard Description CPT-77181 EKG Trac and Interp - XRAY USE ONLY 12:19:18 [employer] 09/29 CPT-36233 Chest, 2 views 12:19:17 [employer] CPT-Cryo Cryotherapy 09:54:37 CDT CPT-01131 First Vx - Ix admin for Medicare patients 09:13:10 CDT CPT-52353 Fluzone High-Dose Intramuscular Suspension 09:13:10 CDT CPT-G0439 Subsequent Annual Wellness Exam 09:41:17 CDT CPT-76102 Lipid - LAB USE ONLY 17:15:33 CDT CPT-97754 HGBA1C - LAB USE ONLY 17:15:33 CDT CPT-14925 CMP - LAB USE ONLY 17:15:33 CDT CPT-21176 Venipuncture Draw Fee 17:15:33 CDT [facility] Transitional Care Mgmt-High 11:01:28 [employer] CPT-49453 First Vx - Ix admin for Medicare patients 17:33:39 CDT CPT-55796 Fluzone High-Dose Intramuscular Suspension 17:33:39 CDT CPT-G0438 Initial Annual Wellness Exam 08:57:30 CDT CPT-52637 Chest 2V Frontal and Lat - XRAY USE ONLY 09:00:14 CDT CPT-03977 Venipuncture Draw Fee 13:33:02 CDT CPT-67014 Bone Density 09:37:49 [employer] CPT-39161 Fluzone High Dose 17:20:42 CDT CPT-90638 Prevnar 13 17:20:42 CDT CPT-38715 Administration 2+ single or combination vaccines inc oral 17:20:42 CDT CPT-33130 Administration single or combination vaccine inc oral 17 :20:42 CDT CPT-58458 Hand comp min 3V 09:24:38 CDT CPT-88507 Venipuncture Draw Fee 08:07:29 [employer] CPT-88392 Venipuncture Draw Fee 09:02:51 [employer] CPT-11230 Venipuncture Draw Fee 12:45:08 [employer] CPT-47056 Venipuncture Draw Fee 09:25:31 CDT CPT-G0008 Administration of Influenza Virus Vaccine 14:41:29 CDT CPT-05563 Fluzone High-Dose Intramuscular Suspension 14:41:29 CDT CPT-Cryo Cryotherapy 11:48:20 CDT CPT-09261 EKG Trac and Interp 09:21:58 CDT CPT-05315 Chest 2V Frontal and Lat 09:21:58 CDT CPT-Cryo Cryotherapy 10:54:51 [employer] CPT-52953 Administration 2+ single or combination vaccines inc oral 10:42:19 CDT CPT-03876 Administration single or combination vaccine inc oral 10 :42:19 CDT CPT-42514 Pneumovax 10:42:19 CDT CPT-25266 Influenza High Dose age 65+ 10:42:19 CDT CPT-18693 Administration single or combination vaccine inc oral 13 :18:54 CDT CPT-99647 Influenza High Dose age 65+ 13:18:54 CDT CPT-18205 Venipuncture Draw Fee 11:53:16 CDT CPT-40394 LS spine comp w obliq 11:03:13 CDT CPT-Cryo Cryotherapy 08:27:16 [employer] CPT-89634 Administration single or combination vaccine inc oral 10 :56:34 CDT CPT-10353 Influenza High Dose age 65+ 10:56:34 CDT
--- OUTSIDE RECORDS SUMMARY | 2018-03-31 17:19 | XMS REPORT | Clinical Summary ---
Author Author Admin, E Organization [employer] Address Unknown Phone Unavailable Allergies, Adverse Reactions, [...] Simon Castillo MD Rheumatoid arthritis Steroid use, meterman V58.65 Resolved Simon Castillo MD Long-term (current) [...] bilateral ICD-729.5 Kerry Castillo MD Steroid use, group home ICD-V58.65 Inactive Simon Castillo MD Hand pain, [...] 1 po qd PRN Asthma/Allergies MONTELUKAST SODIUM [id number] Active Simon Castillo MD Active PROMETHAZINE-CODEINE 6.25-10 MG/5ML ORAL SYRUP 5ml po qHS PRN Cough PROMETHAZINE-CODEINE 39269806108 Active Simon Castillo MD Active AZITHROMYCIN 250 MG ORAL TABLET 2 po qd x 1, then 1 po qd x 4 AZITHROMYCIN 37843461658 Active Simon Castillo MD Active PREDNISONE 20 MG ORAL TABLET 2 po qd x 5 days PREDNISONE 52960587174 Active Simon Castillo MD Active VIAGRA 100 MG ORAL TABLET 0.5 to 1 po qd PRN Erectile dysfunction SILDENAFIL CITRATE 55841632802 Active Simon Castillo MD Active LUTEIN-ZEAXANTHIN 6-1 MG ORAL TABLET 2 po qd LUTEIN- ZEAXANTHIN 97964248604 Active Simon Castillo MD Active BILBERRY CAPSULE 1 po qd BILBERRY (VACCINIUM MYRTILLUS) CAPS 88001840912 Active Simon Castillo MD Active TRAMADOL HCL 50 MG ORAL TABLET 1-2 tablets every 6 hours as needed for pain TRAMADOL HCL 20369978375 No Longer Active Simon Castillo MD Active HYDROCODONE-ACETAMINOPHEN 5-325 MG ORAL TABLET 1 tab by mouth 8 hours as needed for pain HYDROCODONE-ACETAMINOPHEN 95597399986 No Longer Active Simon Castillo MD Active BUMETANIDE 0.5 MG ORAL TABLET 1 po qd BUMETANIDE 92229391968 Active Simon Castillo MD Active AUGMENTIN 875-125 MG ORAL TABLET 1 po BID x 10 days AMOXICILLIN-POT CLAVULANATE 32057860599 No Longer Active Simon Castillo MD Active PIOGLITAZONE HCL 30 MG ORAL TABLET 1 po qd PIOGLITAZONE HCL 86278617588 Active Simon Castillo MD Active GLIMEPIRIDE 4 MG ORAL TABLET 1 po BID GLIMEPIRIDE 39096366500 Active Simon Castillo MD Active ASPIRIN EC 81 MG ORAL TABLET DELAYED RELEASE 1 po qd ASPIRIN 07899911819 Active Simon Castillo MD Active CLOTRIMAZOLE 1 % EXTERNAL CREAM Apply to affected area of feet twice daily PRN Rash CLOTRIMAZOLE 36836388488 No Longer Active Simon Castillo MD Active PREDNISONE 5 MG ORAL TABLET 1 po BID PREDNISONE 78111965323 Active Dolly MCDERMOTT Active FISH OIL 1000 MG ORAL CAPSULE DELAYED RELEASE 1 po BID OMEGA- 3 FATTY ACIDS 38679954837 Active Simon Castillo MD Active LISINOPRIL 10 MG ORAL TABLET 1 p qd LISINOPRIL 80557850249 Active Simon Castillo MD Active CLARITIN 10 MG ORAL TABLET 1 tablet by mouth daily as needed for allergies LORATADINE 37088377526 No Longer Active Simon Casitllo MD Active TRIAMCINOLONE ACETONIDE 0.1 % EXTERNAL OINTMENT Apply to affected areas TID for up to 2 weeks TRIAMCINOLONE ACETONIDE 18514470264 No Longer Active Simon Castillo MD Active LASIX 20 MG ORAL TABLET 1 tablet by mouth daily x 2 days FUROSEMIDE 88259925436 No Longer Active Simon Castillo MD Active SULFASALAZINE 500 MG ORAL TABLET DELAYED RELEASE 2 tabs BID 02/26 SULFASALAZINE 91314995349 No Longer Active Neto Oshea DO Active PREDNISONE 20 MG ORAL TABLET 2 tabs daily for 3 days, 1 tab daily for 3 days, 1/2 tab daily for 2 days PREDNISONE 54490057630 No Longer Active Giles Tatum APRN Active PREDNISONE 20 MG ORAL TABLET 1 tablet daily for airway inflammation PREDNISONE 53607255449 No Longer Active Giles Tatum APRN Active AZITHROMYCIN 250 MG ORAL TABLET 2 po qd x 1 day, then 1 po qd x 4 days 01/28 AZITHROMYCIN 62470013226 No Longer Active Giles Tatum APRN Active TRAMADOL HCL 50 MG ORAL TABLET 1 po q6hr PRN Pain TRAMADOL HCL 62403844617 No Longer Active Simon Castillo MD Active PREDNISONE 5 MG ORAL TABLET 1 po qod PREDNISONE 64488709931 No Longer Active Simon Castillo MD Active SYMBICORT 160-4.5 MCG/ACT INHALATION AEROSOL 2 puff BID BUDESONIDE-FORMOTEROL FUMARATE 89598916952 No Longer Active Simon Castillo MD Active FLONASE 50 MCG/ACT NASAL SUSPENSION 2 puffs in each nostril daily FLUTICASONE PROPIONATE 24547812076 No Longer Active Simon Castillo MD Active PREDNISONE 20 MG ORAL TABLET 2 tabs daily for 5 days, then 1 daily for 5 days PREDNISONE 33420132064 No Longer Active Simon Castillo MD Active PREDNISONE 20 MG ORAL TABLET 2 tabs daily for 5 days, then 1 daily for 5 days , then 0.5 for 4 days PREDNISONE 97000544898 No Longer Active Simon Castillo MD Active PREDNISONE 20 MG ORAL TABLET 2 tabs daily for 3 days, 1 tab daily for 3 days, 1/2 tab daily for 2 days PREDNISONE 89907868206 No Longer Active Simon Castillo MD Active AZITHROMYCIN 250 MG ORAL TABLET 2 po qd x 1 day, then 1 po qd x 4 days 03/16 AZITHROMYCIN 47991782633 No Longer Active Simon Castillo MD Active CARVEDILOL 6.25 MG ORAL TABLET 1 po BID CARVEDILOL 06537797171 Active Simon Castillo MD Active LISINOPRIL-HYDROCHLOROTHIAZIDE 20-12.5 MG ORAL TABLET 1/2 tab by mouth daily LISINOPRIL-HYDROCHLOROTHIAZIDE 91646357896 No Longer Active Simon Castillo MD Active PREDNISONE 5 MG ORAL TABLET Take one po qod PREDNISONE 41584665862 No Longer Active Siomn Castillo MD Active GLYBURIDE 5 MG ORAL TABLET Take one by mouth daily GLYBURIDE 25166971104 No Longer Active Simon Castillo MD Active LEVAQUIN 750 MG ORAL TABLET 1 po qod x 5 doses LEVOFLOXACIN 90274276816 No Longer Active Simon Castillo MD Active CETIRIZINE HCL 10 MG ORAL TABLET 1 po qd as needed for allergies CETIRIZINE HCL 01710644739 No Longer Active Simon Castillo MD Active ATENOLOL 50 MG ORAL TABLET Take one by mouth daily ATENOLOL 18224872967 No Longer Active Simon Castillo MD Active FLONASE 50 MCG/ACT NASAL SUSPENSION 2 puffs in each nostril daily FLUTICASONE PROPIONATE 79244876375 No Longer Active Simon Castillo MD Active GLYBURIDE 5 MG ORAL TABLET Take one by mouth daily GLYBURIDE 24141814839 No Longer Active Simon Castillo MD Active SYMBICORT 80-4.5 MCG/ACT INHALATION AEROSOL 2 puffs twice a day BUDESONIDE-FORMOTEROL FUMARATE 55734218821 No Longer Active Simon Castillo MD Active PREDNISONE 20 MG ORAL TABLET 2 tabs daily for 4 days, 1 tab daily for 4 days, 1/2 tab daily for 4 days PREDNISONE 62105732494 No Longer Active Simon Castillo MD Active AMOXICILLIN 500 MG ORAL CAPSULE 2 po BID x 10 days AMOXICILLIN 37587614760 No Longer Active Simon Castillo MD Active METFORMIN HCL 1000 MG ORAL TABLET 1 [facility] twice a day METFORMIN HCL 15987832309 No Longer Active Simon Castillo MD Active IBUPROFEN 800 MG ORAL TABLET Take 1 tab every 6 hrs prn IBUPROFEN 44279421233 No Longer Active Simon Castillo MD Active GLYBURIDE 2.5 MG ORAL TABLET Take one by mouth daily GLYBURIDE 03838729422 No Longer Active Simon Castillo MD Active LANCETS 2 qd LANCETS 59217697088 Active Pamela Hernandesoy Active ACACIA CONTOUR TEST IN VITRO STRIP Use with testing twice daily GLUCOSE BLOOD 23121047692 Active Simon Castillo MD Active GLYBURIDE 2.5 MG ORAL TABLET Take one by mouth daily GLYBURIDE 2.5 MG ORAL TABLET 569628 GLYBURIDE Inactive PREDNISONE 20 MG ORAL TABLET 2 tabs daily for 4 days, 1 tab daily for 4 days, 1/2 tab daily for 4 days PREDNISONE 20 MG ORAL TABLET 331708 PREDNISONE Inactive SYMBICORT 80-4.5 MCG/ACT INHALATION AEROSOL 2 puffs twice a day SYMBICORT 80-4.5 MCG/ACT INHALATION AEROSOL BUDESONIDE- FORMOTEROL FUMARATE Inactive FLONASE 50 MCG/ACT NASAL SUSPENSION 2 puffs in each nostril daily FLONASE 50 MCG/ACT NASAL SUSPENSION 4378764 FLUTICASONE PROPIONATE Inactive ATENOLOL 50 MG ORAL TABLET Take one by mouth daily ATENOLOL 50 MG ORAL TABLET 116377 ATENOLOL Inactive CETIRIZINE HCL 10 MG ORAL TABLET 1 po qd as needed for allergies CETIRIZINE HCL 10 MG ORAL TABLET 8057041 CETIRIZINE HCL Inactive LEVAQUIN 750 MG ORAL TABLET 1 po qod x 5 doses LEVAQUIN 750 MG ORAL TABLET 702236 LEVOFLOXACIN Inactive GLYBURIDE 5 MG ORAL TABLET Take one by mouth daily GLYBURIDE 5 MG ORAL TABLET 180898 GLYBURIDE Inactive PREDNISONE 5 MG ORAL TABLET Take one po qod PREDNISONE 5 MG ORAL TABLET 303880 PREDNISONE Inactive PREDNISONE 20 MG ORAL TABLET 2 tabs daily for 5 days, then 1 daily for 5 days PREDNISONE 20 MG ORAL TABLET 217199 PREDNISONE Inactive FLONASE 50 MCG/ACT NASAL SUSPENSION 2 puffs in each nostril daily FLONASE 50 MCG/ACT NASAL SUSPENSION 7313366 FLUTICASONE PROPIONATE Inactive SYMBICORT 160-4.5 MCG/ACT INHALATION AEROSOL 2 puff BID SYMBICORT 160-4.5 MCG/ACT INHALATION AEROSOL BUDESONIDE-FORMOTEROL FUMARATE Inactive PREDNISONE 5 MG ORAL TABLET 1 po qod PREDNISONE 5 MG ORAL TABLET 174038 PREDNISONE Inactive PREDNISONE 20 MG ORAL TABLET 1 tablet daily for airway inflammation PREDNISONE 20 MG ORAL TABLET 914765 PREDNISONE Inactive SULFASALAZINE 500 MG ORAL TABLET DELAYED RELEASE 2 tabs BID 02/26 SULFASALAZINE 500 MG ORAL TABLET DELAYED RELEASE 228868 SULFASALAZINE Inactive LASIX 20 MG ORAL TABLET 1 tablet by mouth daily x 2 days LASIX 20 MG ORAL TABLET 311055 FUROSEMIDE Inactive CLARITIN 10 MG ORAL TABLET 1 tablet by mouth daily as needed for allergies CLARITIN 10 MG ORAL TABLET 021096 LORATADINE Inactive CLOTRIMAZOLE 1 % EXTERNAL CREAM Apply to affected area of feet twice daily PRN Rash CLOTRIMAZOLE 1 % EXTERNAL CREAM 808717 CLOTRIMAZOLE Inactive HYDROCODONE-ACETAMINOPHEN 5-325 MG ORAL TABLET 1 tab by mouth 8 hours as needed for pain HYDROCODONE-ACETAMINOPHEN 5-325 MG ORAL TABLET 125785 HYDROCODONE-ACETAMINOPHEN Inactive TRAMADOL HCL 50 MG ORAL TABLET 1-2 tablets every 6 hours as needed for pain TRAMADOL HCL 50 MG ORAL TABLET 787445 TRAMADOL HCL Inactive AMOXICILLIN 500 MG ORAL CAPSULE 2 po BID x 10 days AMOXICILLIN 500 MG ORAL CAPSULE 925852 AMOXICILLIN Inactive GLYBURIDE 5 MG ORAL TABLET Take one by mouth daily GLYBURIDE 5 MG ORAL TABLET 037385 GLYBURIDE Inactive AZITHROMYCIN 250 MG ORAL TABLET 2 po qd x 1 day, then 1 po qd x 4 days 03/16 AZITHROMYCIN 250 MG ORAL TABLET 525975 AZITHROMYCIN Inactive PREDNISONE 20 MG ORAL TABLET 2 tabs daily for 3 days, 1 tab daily for 3 days, 1/2 tab daily for 2 days PREDNISONE 20 MG ORAL TABLET 197417 PREDNISONE Inactive PREDNISONE 20 MG ORAL TABLET 2 tabs daily for 5 days, then 1 daily for 5 days , then 0.5 for 4 days PREDNISONE 20 MG ORAL TABLET 922962 PREDNISONE Inactive AZITHROMYCIN 250 MG ORAL TABLET 2 po qd x 1 day, then 1 po qd x 4 days 01/28 AZITHROMYCIN 250 MG ORAL TABLET 207682 AZITHROMYCIN Inactive PREDNISONE 20 MG ORAL TABLET 2 tabs daily for 3 days, 1 tab daily for 3 days, 1/2 tab daily for 2 days PREDNISONE 20 MG ORAL TABLET 764998 PREDNISONE Inactive TRIAMCINOLONE ACETONIDE 0.1 % EXTERNAL OINTMENT Apply to affected areas TID for up to 2 weeks TRIAMCINOLONE ACETONIDE 0.1 % EXTERNAL OINTMENT 4572951 TRIAMCINOLONE ACETONIDE Inactive AUGMENTIN 875-125 MG ORAL TABLET 1 po BID x 10 days AUGMENTIN 875-125 MG ORAL TABLET 141570 AMOXICILLIN-POT CLAVULANATE Inactive Immunizations Vaccine Administration Date [...] - Urinalysis glucose, urine, semiquantitative Negative Negative urobilinogen, urine, semiquantitative (dipstick) 0.2 E.U./dL Normal leukocyte esterase, urine, by dipstick Negative Negative nitrite, urine, semiquantitative Negative Negative urine color Yellow Colorless;Lightyellow;Straw;Yellow ketones, urine, by test strip Negative Negative bilirubin, urine Negative Negative appearance, urine Clear Clear specific gravity, urine 1.025 1.000-1.030 pH, urine, semiquantitative 5.5 5.0-8.5 Lab Report: Basic Metabolic Panel, B-Type Natriuretic Peptide - Chemistry sodium, serum 142 mmol/L 116-417 4180/07/18 potassium, serum 5.0 mmol/L 3.5-5.2 chloride, serum [...] Rate - Chemistry sodium, serum 142 mmol/L 699-798 2428/02/27 carbon dioxide, venous blood 26.2 mmol/L 21.0-32.0 [...] Panel - Chemistry sodium, serum 140 mmol/L 988-910 1100/07/13 carbon dioxide, venous blood 23.7 mmol/L 21.0-32.0 [...] Negative mg/dL Negative sodium, serum 142 mmol/L 917-208 8898/01/08 carbon dioxide, venous blood 23.9 mmol/L 21.0-32.0 [...] 0.36-3.74 thyroxine, serum, free 0.88 ng/dL 0.59-1.17 RBC, urine, dipstick Negative Negative Lab Report: Comp. Metabolic Panel, Thyroid Stimulating Hormone (L), Free ... - Urinalysis urobilinogen, urine, semiquantitative (dipstick) 0.2 E.U./dL Normal leukocyte esterase, urine, by dipstick Negative Negative nitrite, urine, semiquantitative Negative Negative urine color Yellow Colorless;Lightyellow;Straw;Yellow appearance, urine Clear Clear specific gravity, urine 1.015 1.000-1.030 pH, urine, semiquantitative 5.0 5.0-8.5 glucose, urine, semiquantitative Negative Negative ketones, urine, by test strip Negative Negative bilirubin, urine Negative Negative Lab Report: HGBA1C - Chemistry hemoglobin A1C, blood, as % of total hemoglobin 7.8 % 4.3-6.0 Lab Report: MIKAELA INFLUENZA A/B - Toxicology rapid flu test Negative Negative;Positive Encounters Code Encounter Date Provider Facility CPT-25697 Level 3 Est. Patient 11:36:15 CDT Simon Castillo MD [facility] CPT-97041 Level 4 Est. Patient 14:06:23 STEAM TURBINE OPERATOR Simon Castillo [facility] CPT-76390 Level 3 Est. Patient 12:04:38 STEAM TURBINE OPERATOR Giles Tatum [facility][note 3] CPT-24686 Level 3 Est. Patient 11:57:09 STEAM TURBINE OPERATOR Giles Tatum [facility][note 3] CPT-42251 Level 3 Est. Patient 11:48:57 STEAM TURBINE OPERATOR Giles Tatum [facility][note 3] CPT-07719 Level 4 Est. Patient 09:54:36 CDT Simon Castillo MD [facility] CPT-53242 Level 4 Est. Patient 08:48:38 CDT Simon Castillo [facility] CPT-72700 Level 4 Est. Patient 09:54:08 CDT Simon Castillo MD [facility] CPT-92115 Level 4 Est. Patient 16:11:23 CDT Simon Castillo MD [facility] CPT-02404 Level 4 Est. Patient 09:29:28 STEAM TURBINE OPERATOR Simon Castillo MD [facility] CPT-75871 Level 3 Est. Patient 09:18:25 CDT Simon Castillo MD [facility] CPT-05355 Level 4 Est. Patient 11:51:23 CDT Simon Castillo MD [facility] CPT-14447 Level 4 Est. Patient 14:32:04 CDT Neto Oshea DO [facility] CPT-72662 Level 3 Est. Patient 08:41:43 CDT Giles Tatum [facility][note 3] CPT-66627 Level 3 Est. Patient 08:40:53 CDT Jillina Nashzell [facility][note 3] CPT-30966 Level 3 Est. Patient 08:36:52 CDT Jillina Nashzell [facility][note 3] CPT-67470 Level 3 Est. Patient 09:08:44 CDT Jilltriston Salcidol [facility][note 3] CPT-32286 Level 4 Est. Patient 09:17:32 STEAM TURBINE OPERATOR Simon Castillo MD [facility] CPT-16744 Level 3 Est. Patient 11:22:22 STEAM TURBINE OPERATOR Simon Castillo MD [facility] CPT-61901 Level 3 Est. Patient 09:02:14 CDT Simon Castillo MD [facility] CPT-67505 Level 4 Est. Patient 08:47:25 CDT Simon Castillo MD [facility] CPT-83202 Level 4 Est. Patient 10:17:25 CDT Simon Castillo MD [facility] CPT-68518 Level 4 Est. Patient 10:10:09 STEAM TURBINE OPERATOR Simon Castillo MD [facility] CPT-32095 Level 4 Est. Patient 11:48:19 CDT Simon Castillo MD [facility] CPT-40444 Level 4 Est. Patient 08:59:29 CDT Simon Castillo MD [facility] CPT-30288 Level 4 Est. Patient 10:52:51 STEAM TURBINE OPERATOR Simon Castillo MD [facility] CPT-37943 Level 4 Est. Patient 11:50:30 CDT Simon Castillo MD [facility] CPT-23513 Level 4 Est. Patient 09:54:46 CDT Simon Castillo MD [facility] CPT-70789 Level 3 Est. Patient 11:10:14 CDT Simon Castillo MD [facility] CPT-10831 Level 4 Est. Patient 09:44:02 CDT Simon Castillo MD [facility] CPT-28442 Level 3 Est. Patient 09:27:48 CDT Simon Castillo MD [facility] CPT-71494 Level 3 Est. Patient 09:58:06 STEAM TURBINE OPERATOR Simon Castillo MD [facility] CPT-27090 Level 3 Est. Patient 09:51:35 CDT Simon Castillo MD [facility] Procedures Code Procedure Name Date Entry Date Standard Description CPT-36873 EKG Trac and Interp - XRAY USE ONLY 12:19:18 STEAM TURBINE OPERATOR 09/29 CPT-07528 Chest, 2 views 12:19:17 STEAM TURBINE OPERATOR CPT-Cryo Cryotherapy 09:54:37 CDT CPT-41101 First Vx - Ix admin for Medicare patients 09:13:10 CDT CPT-56633 Fluzone High-Dose Intramuscular Suspension 09:13:10 CDT CPT-G0439 [facility] Annual Wellness Exam 09:41:17 CDT CPT-37644 Lipid - LAB USE ONLY 17:15:33 CDT CPT-51850 HGBA1C - LAB USE ONLY 17:15:33 CDT CPT-42248 CMP - LAB USE ONLY 17:15:33 CDT CPT-82226 Venipuncture Draw Fee 17:15:33 CDT CPT-TCM Transitional Care Mgmt-High 11:01:28 STEAM TURBINE OPERATOR CPT-13454 First Vx - Ix admin for Medicare patients 17:33:39 CDT CPT-80233 Fluzone High-Dose Intramuscular Suspension 17:33:39 CDT CPT-G0438 Initial Annual Wellness Exam 08:57:30 CDT CPT-18285 Chest 2V Frontal and Lat - XRAY USE ONLY 09:00:14 CDT CPT-63594 Venipuncture Draw Fee 13:33:02 CDT CPT-71746 Bone Density 09:37:49 STEAM TURBINE OPERATOR CPT-30999 Fluzone High Dose 17:20:42 CDT CPT-09942 Prevnar 13 17:20:42 CDT CPT-31599 Administration 2+ single or combination vaccines inc oral 17:20:42 CDT CPT-42495 Administration single or combination vaccine inc oral 17 :20:42 CDT CPT-17645 Hand comp min 3V 09:24:38 CDT CPT-90491 Venipuncture Draw Fee 08:07:29 STEAM TURBINE OPERATOR CPT-26587 Venipuncture Draw Fee 09:02:51 STEAM TURBINE OPERATOR CPT-03890 Venipuncture Draw Fee 12:45:08 STEAM TURBINE OPERATOR CPT-88439 Venipuncture Draw Fee 09:25:31 CDT CPT-G0008 Administration of Influenza Virus Vaccine 14:41:29 CDT CPT-22399 Fluzone High-Dose Intramuscular Suspension 14:41:29 CDT CPT-Cryo Cryotherapy 11:48:20 CDT CPT-34315 EKG Trac and Interp 09:21:58 CDT CPT-72441 Chest 2V Frontal and Lat 09:21:58 CDT CPT-Cryo Cryotherapy 10:54:51 STEAM TURBINE OPERATOR CPT-80461 Administration 2+ single or combination vaccines inc oral 10:42:19 CDT CPT-81530 Administration single or combination vaccine inc oral 10 :42:19 CDT CPT-15135 Pneumovax 10:42:19 CDT CPT-51185 Influenza High Dose age 65+ 10:42:19 CDT CPT-74593 Administration single or combination vaccine inc oral 13 :18:54 CDT CPT-53744 Influenza High Dose age 65+ 13:18:54 CDT CPT-36549 Venipuncture Draw Fee 11:53:16 CDT CPT-83673 LS spine comp w obliq 11:03:13 CDT CPT-Cryo Cryotherapy 08:27:16 STEAM TURBINE OPERATOR CPT-42458 Administration single or combination vaccine inc oral 10 :56:34 CDT CPT-14803 Influenza High Dose age 65+ 10:56:34 CDT
--- OUTSIDE RECORDS SUMMARY | 2018-03-31 17:20 | XMS REPORT | Clinical Summary ---
Author Author Admin, E Organization [employer] Address Unknown Phone Unavailable Allergies, Adverse Reactions, Alerts Allergy Name Reaction Description Start Date Severity Status Provider No Known Allergies Dollyshria Wong BALDEMAR Conditions or Problems Problem Name [...] HX OF ICD-V13.89 Inactive Simon Castillo MD Actinic keratosis ICD-702.0 Inactive Simon Castillo MD Chest pain ICD-786.50 Inactive Simon Castillo MD Cough ICD-786.2 Inactive Simon Castillo MD Eczema ICD-692.9 Inactive Simon Castillo MD 02/27 Bronchitis, acute ICD-466.0 Inactive Simon Castillo MD Tinea pedis ICD-110.4 Kerry Castillo MD Hand pain, bilateral ICD-729.5 Inactive Simon Castillo MD Obesity ICD-278.00 Inactive Simon Castillo MD 2013 Steroid use, emt intermediate ICD-V58.65 Inactive Simon Castillo MD Hand pain, bilateral ICD-729.5 Inactive Simon Castillo MD Dyspnea ICD-786.09 Inactive Simon Castillo MD 2016 Peripheral edema ICD-782.3 Inactive Simon Castillo MD 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 Inactive Simon Castillo MD Sinusitis, acute ICD-461.9 Inactive Simon Castillo MD Dyspnea ICD-786.09 Inactive Simon Castillo MD 2016 Pharyngitis ICD-462 Inactive Simon Castillo MD Pneumonia, right lower lobe ICD-486 Inactive Simon Castillo MD Medication List Medication Instructions Start Date Stop Date Generic Name NDC Status Provider Patient Instruction BUMETANIDE 0.5 MG ORAL TABS 1 po qd BUMETANIDE [id number] Active Simon Castillo MD Active AUGMENTIN 875-125 MG ORAL TABS 1 po BID x 10 days AMOXICILLIN-POT CLAVULANATE 01326868746 No Longer Active Simon Castillo MD Active PIOGLITAZONE HCL 30 MG ORAL TABS 1 po qd PIOGLITAZONE HCL 05346941542 Active Simon Castillo MD Active GLIMEPIRIDE 4 MG ORAL TABS 1 po BID GLIMEPIRIDE 36414662409 Active Simon Castillo MD Active ASPIRIN EC 81 MG ORAL TBEC 1 po qd ASPIRIN 50620349185 Active Simon Castillo MD Active CLOTRIMAZOLE 1 % EXT CREA Apply to affected area of feet twice daily PRN Rash CLOTRIMAZOLE 68500626494 No Longer Active Simon Castillo MD Active PREDNISONE 5 MG TAB 1 po BID PREDNISONE 78902638875 Active Simon Castillo MD Active FISH OIL 1000 MG CPDR 1 po BID OMEGA-3 FATTY ACIDS 55948205374 Active Simon Castillo MD Active LISINOPRIL 10 MG TABS 1 p qd LISINOPRIL 67720827144 Active Simon Castillo MD Active CLARITIN 10 MG TAB 1 tablet by mouth daily as needed for allergies LORATADINE 15579881844 No Longer Active Simon Castillo MD Active TRIAMCINOLONE ACETONIDE 0.1 % OINT Apply to affected areas TID for up to 2 weeks TRIAMCINOLONE ACETONIDE 65226409825 No Longer Active Simon Castillo MD Active LASIX 20 MG TAB 1 tablet by mouth daily x 2 days FUROSEMIDE 92512392155 No Longer Active Simon Castillo MD Active SULFASALAZINE 500 MG ORAL TBEC 2 tabs BID SULFASALAZINE 63256279208 No Longer Active Neto Oshea DO Active PREDNISONE 20 MG TAB 2 tabs daily for 3 days, 1 tab daily for 3 days, 1/2 tab daily for 2 days PREDNISONE 01474714754 No Longer Active Jillina Frazell HOSPICE AIDE Active PREDNISONE 20 MG TAB 1 tablet daily for airway inflammation 02/25 PREDNISONE 44952315149 No Longer Active Jillina Frazell HOSPICE AIDE Active AZITHROMYCIN 250 MG TABS 2 po qd x 1 day, then 1 po qd x 4 days AZITHROMYCIN 54172597225 No Longer Active Jillina Frazell HOSPICE AIDE Active HYDROCODONE-ACETAMINOPHEN 5-325 MG TABS 1 tab by mouth 8 hours as needed for pain HYDROCODONE-ACETAMINOPHEN 01185625176 Active Simon Castillo MD Active TRAMADOL HCL 50 MG TABS 1 po q6hr PRN Pain TRAMADOL HCL 52510106776 No Longer Active Simon Castillo MD Active PREDNISONE 5 MG TABS 1 po qod PREDNISONE 74748218472 No Longer Active Simon Castillo MD Active SYMBICORT 160-4.5 MCG/ACT AERO 2 puff BID BUDESONIDE- FORMOTEROL FUMARATE 32435855891 No Longer Active Simon Castillo MD Active FLONASE 50 MCG/ACT SUSP 2 puffs in each nostril daily FLUTICASONE PROPIONATE 67771175086 No Longer Active Simon Castillo MD Active PREDNISONE 20 MG TAB 2 tabs daily for 5 days, then 1 daily for 5 days PREDNISONE 29543797463 No Longer Active Simon Castillo MD Active PREDNISONE 20 MG TAB 2 tabs daily for 5 days, then 1 daily for 5 days, then 0.5 for 4 days PREDNISONE 94091516355 No Longer Active Simon Castillo MD Active PREDNISONE 20 MG TAB 2 tabs daily for 3 days, 1 tab daily for 3 days, 1/2 tab daily for 2 days PREDNISONE 27052314260 No Longer Active Simon Castillo MD Active AZITHROMYCIN 250 MG TABS 2 po qd x 1 day, then 1 po qd x 4 days AZITHROMYCIN 38667956910 No Longer Active Simon Castillo MD Active CARVEDILOL 6.25 MG TABS 1 po BID CARVEDILOL 33333205222 Active Simon Castillo MD Active LISINOPRIL-HYDROCHLOROTHIAZIDE 20-12.5 MG TABS 1/2 tab by mouth daily LISINOPRIL-HYDROCHLOROTHIAZIDE 71918641396 No Longer Active Simon Castillo MD Active TRAMADOL HCL 50 MG TABS 1-2 tablets every 6 hours as needed for pain TRAMADOL HCL 70250558709 Active Giles Tatum APRN Active PREDNISONE 5 MG TAB Take one po qod PREDNISONE 15977812506 No Longer Active Simon Castillo MD Active GLYBURIDE 5 MG TAB Take one by mouth daily GLYBURIDE 41499980300 No Longer Active Simon Castillo MD Active LEVAQUIN 750 MG TABS 1 po qod x 5 doses LEVOFLOXACIN 96030979350 No Longer Active Simon Castillo MD Active CETIRIZINE HCL 10 MG TABS 1 po qd as needed for allergies CETIRIZINE HCL 42519466899 No Longer Active Simon Castillo MD Active BILBERRY CAPS 1 tab daily BILBERRY (VACCINIUM MYRTILLUS) CAPS 53402109501 Active Simon Castillo MD Active ATENOLOL 50 MG TABS Take one by mouth daily ATENOLOL 42033953811 No Longer Active Simon Castillo MD Active FLONASE 50 MCG/ACT SUSP 2 puffs in each nostril daily FLUTICASONE PROPIONATE 57266470928 No Longer Active Simon Castillo MD Active GLYBURIDE 5 MG TAB Take one by mouth daily GLYBURIDE 22353162004 No Longer Active Simon Castillo MD Active SYMBICORT 80-4.5 MCG/ACT AERO 2 puffs twice a day BUDESONIDE-FORMOTEROL FUMARATE 76006844168 No Longer Active Simon Castillo MD Active PREDNISONE 20 MG TAB 2 tabs daily for 4 days, 1 tab daily for 4 days, 1/2 tab daily for 4 days PREDNISONE 10064356368 No Longer Active Simon Castillo MD Active AMOXICILLIN 500 MG CAPS 2 po BID x 10 days AMOXICILLIN 11227663992 No Longer Active Simon Castillo MD Active METFORMIN HCL 1000 MG TABS [address] [facility] twice a day METFORMIN HCL 59601520872 No Longer Active Simon Castillo MD Active LUTEIN-ZEAXANTHIN 6-1 MG TABS Take 2 by mouth daily LUTEIN-ZEAXANTHIN 08438538875 Active Simon Castillo MD Active IBUPROFEN 800 MG TABS Take 1 tab every 6 hrs prn IBUPROFEN 69630021805 No Longer Active Simon Castillo MD Active GLYBURIDE 2.5 MG TABS Take one by mouth daily GLYBURIDE 61771497297 No Longer Active Simon Castillo MD Active LANCETS MISC 2 qd LANCETS 12404448223 Active Pamela Conde Active ACACIA CONTOUR TEST STRP Use with testing twice daily GLUCOSE BLOOD 40748717696 Active Simon Castillo MD Active GLYBURIDE 2.5 MG TABS Take one by mouth daily GLYBURIDE 2.5 MG TABS 324630 GLYBURIDE Inactive PREDNISONE 20 MG TAB 2 tabs daily for 4 days, 1 tab daily for 4 days, 1/2 tab daily for 4 days PREDNISONE 20 MG TAB 491112 PREDNISONE Inactive SYMBICORT 80-4.5 MCG/ACT AERO 2 puffs twice a day SYMBICORT 80-4.5 MCG/ACT AERO BUDESONIDE-FORMOTEROL FUMARATE Inactive FLONASE 50 MCG/ACT SUSP 2 puffs in each nostril daily FLONASE 50 MCG/ACT SUSP 9926409 FLUTICASONE PROPIONATE Inactive ATENOLOL 50 MG TABS Take one by mouth daily ATENOLOL 50 MG TABS 483839 ATENOLOL Inactive CETIRIZINE HCL 10 MG TABS 1 po qd as needed for allergies CETIRIZINE HCL 10 MG TABS 1759354 CETIRIZINE HCL Inactive LEVAQUIN 750 MG TABS 1 po qod x 5 doses LEVAQUIN 750 MG TABS 851892 LEVOFLOXACIN Inactive GLYBURIDE 5 MG TAB Take one by mouth daily GLYBURIDE 5 MG TAB 406395 GLYBURIDE Inactive PREDNISONE 5 MG TAB Take one po qod PREDNISONE 5 MG TAB 214870 PREDNISONE Inactive PREDNISONE 20 MG TAB 2 tabs daily for 5 days, then 1 daily for 5 days PREDNISONE 20 MG TAB 747583 PREDNISONE Inactive FLONASE 50 MCG/ACT SUSP 2 puffs in each nostril daily FLONASE 50 MCG/ACT SUSP 5242190 FLUTICASONE PROPIONATE Inactive SYMBICORT 160-4.5 MCG/ACT AERO 2 puff BID SYMBICORT 160-4.5 MCG/ACT AERO BUDESONIDE-FORMOTEROL FUMARATE Inactive PREDNISONE 5 MG TABS 1 po qod PREDNISONE 5 MG TABS 983720 PREDNISONE Inactive PREDNISONE 20 MG TAB 1 tablet daily for airway inflammation 02/25 PREDNISONE 20 MG TAB 070373 PREDNISONE Inactive SULFASALAZINE 500 MG ORAL TBEC 2 tabs BID SULFASALAZINE 500 MG ORAL TBEC 180733 SULFASALAZINE Inactive LASIX 20 MG TAB 1 tablet by mouth daily x 2 days LASIX 20 MG TAB 001775 FUROSEMIDE Inactive CLARITIN 10 MG TAB 1 tablet by mouth daily as needed for allergies CLARITIN 10 MG TAB 191192 LORATADINE Inactive CLOTRIMAZOLE 1 % EXT CREA Apply to affected area of feet twice daily PRN Rash CLOTRIMAZOLE 1 % EXT CREA 351363 CLOTRIMAZOLE Inactive AMOXICILLIN 500 MG CAPS 2 po BID x 10 days AMOXICILLIN 500 MG CAPS 981596 AMOXICILLIN Inactive GLYBURIDE 5 MG TAB Take one by mouth daily GLYBURIDE 5 MG TAB 042713 GLYBURIDE Inactive AZITHROMYCIN 250 MG TABS 2 po qd x 1 day, then 1 po qd x 4 days AZITHROMYCIN 250 MG TABS 621138 AZITHROMYCIN Inactive PREDNISONE 20 MG TAB 2 tabs daily for 3 days, 1 tab daily for 3 days, 1/2 tab daily for 2 days PREDNISONE 20 MG TAB 179272 PREDNISONE Inactive PREDNISONE 20 MG TAB 2 tabs daily for 5 days, then 1 daily for 5 days, then 0.5 for 4 days PREDNISONE 20 MG TAB 747780 PREDNISONE Inactive AZITHROMYCIN 250 MG TABS 2 po qd x 1 day, then 1 po qd x 4 days AZITHROMYCIN 250 MG TABS 485595 AZITHROMYCIN Inactive PREDNISONE 20 MG TAB 2 tabs daily for 3 days, 1 tab daily for 3 days, 1/2 tab daily for 2 days PREDNISONE 20 MG TAB 572815 PREDNISONE Inactive TRIAMCINOLONE ACETONIDE 0.1 % OINT Apply to affected areas TID for up to 2 weeks TRIAMCINOLONE ACETONIDE 0.1 % OINT 1818447 TRIAMCINOLONE ACETONIDE Inactive AUGMENTIN 875-125 MG ORAL TABS 1 po BID x 10 days AUGMENTIN 875-125 MG ORAL TABS 710458 AMOXICILLIN-POT CLAVULANATE Inactive Immunizations Vaccine Administration Date [...] Peptide - Chemistry sodium, serum 142 mmol/L 059-524 3509/07/18 potassium, serum 5.0 mmol/L 3.5-5.2 chloride, serum [...] Panel - Chemistry sodium, serum 140 mmol/L 851-608 8014/07/13 carbon dioxide, venous blood 23.7 mmol/L 21.0-32.0 [...] Panel - Chemistry sodium, serum 141 mmol/L 042-309 7016/02/07 carbon dioxide, venous blood 26.0 mmol/L 21.0-32.0 [...] 130-200 Encounters Code Encounter Date Provider Facility CPT-09780 Level 4 Est. Patient 09:54:36 CDT Simon Castillo MD [facility] CPT-27819 Level 4 Est. Patient 08:48:38 CDT Simon Castillo MD [facility] CPT-92796 Level 4 Est. Patient 09:54:08 CDT Simon Castillo MD [facility] CPT-19974 Level 4 Est. Patient 16:11:23 CDT Simon Castillo MD [facility] CPT-59535 Level 4 Est. Patient 09:29:28 LICENSED REACTOR OPERATOR Simon Castillo MD [facility] CPT-36208 Level 3 Est. Patient 09:18:25 CDT Simon Castillo MD [facility] CPT-22029 Level 4 Est. Patient 11:51:23 CDT Simon Castillo MD [facility] CPT-37759 Level 4 Est. Patient 14:32:04 CDT Neto Oshea DO [facility] CPT-37291 Level 3 Est. Patient 08:41:43 CDT Giles Tatum [facility] CPT-72964 Level 3 Est. Patient 08:40:53 CDT Giles Tatum [facility] CPT-79120 Level 3 Est. Patient 08:36:52 CDT Giles Tatum [facility] CPT-54174 Level 3 Est. Patient 09:08:44 CDT Giles Tatum [facility] CPT-14494 Level 4 Est. Patient 09:17:32 LICENSED REACTOR OPERATOR Simon Castillo MD [facility] CPT-23119 Level 3 Est. Patient 11:22:22 LICENSED REACTOR OPERATOR Simon Castillo MD [facility] CPT-02702 Level 3 Est. Patient 09:02:14 CDT Simon Castillo MD [facility] CPT-20695 Level 4 Est. Patient 08:47:25 CDT Simon Castillo MD [facility] CPT-92247 Level 4 Est. Patient 10:17:25 CDT Simon Castillo MD [facility] CPT-74587 Level 4 Est. Patient 10:10:09 LICENSED REACTOR OPERATOR Simon Castillo MD [facility] CPT-25242 Level 4 Est. Patient 11:48:19 CDT Simon Castillo MD [facility] CPT-28743 Level 4 Est. Patient 08:59:29 CDT Simon Castillo MD [facility] CPT-89656 Level 4 Est. Patient 10:52:51 LICENSED REACTOR OPERATOR Simon Castillo MD [facility] CPT-25440 Level 4 Est. Patient 11:50:30 CDT Simon Castillo MD [facility] CPT-27295 Level 4 Est. Patient 09:54:46 CDT Simon Castillo MD [facility] CPT-03988 Level 3 Est. Patient 11:10:14 CDT Simon Castillo MD [facility] CPT-46346 Level 4 Est. Patient 09:44:02 CDT Simon Castillo MD [facility] CPT-06025 Level 3 Est. Patient 09:27:48 CDT Simon Castillo MD [facility] CPT-82719 Level 3 Est. Patient 09:58:06 LICENSED REACTOR OPERATOR Simon Castillo MD [facility] CPT-25058 Level 3 Est. Patient 09:51:35 CDT Simon Castillo MD [facility] Procedures Code Procedure Name Date Entry Date Standard Description CPT-Cryo Cryotherapy 09:54:37 CDT CPT-62141 First Vx - Ix admin for Medicare patients 09:13:10 CDT CPT-74927 Fluzone High-Dose Intramuscular Suspension 09:13:10 CDT CPT-G0439 Subsequent Annual Wellness Exam 09:41:17 CDT CPT-79326 Lipid - LAB USE ONLY 17:15:33 CDT CPT-00703 HGBA1C - LAB USE ONLY 17:15:33 CDT CPT-46005 CMP - LAB USE ONLY 17:15:33 CDT CPT-93570 Venipuncture Draw Fee 17:15:33 CDT CPT-[facility] Transitional Care Mgmt-High 11:01:28 LICENSED REACTOR OPERATOR CPT-35710 First Vx - Ix admin for Medicare patients 17:33:39 CDT CPT-79620 Fluzone High-Dose Intramuscular Suspension 17:33:39 CDT CPT-G0438 Initial Annual Wellness Exam 08:57:30 CDT CPT-17412 Chest 2V Frontal and Lat - XRAY USE ONLY 09:00:14 CDT CPT-79284 Venipuncture Draw Fee 13:33:02 CDT CPT-44878 Bone Density 09:37:49 LICENSED REACTOR OPERATOR CPT-07251 Fluzone High Dose 17:20:42 CDT CPT-92841 Prevnar 13 17:20:42 CDT CPT-70456 Administration 2+ single or combination vaccines inc oral 17:20:42 CDT CPT-66565 Administration single or combination vaccine inc oral 17 :20:42 CDT CPT-78370 Hand comp min 3V 09:24:38 CDT CPT-75824 Venipuncture Draw Fee 08:07:29 LICENSED REACTOR OPERATOR CPT-06812 Venipuncture Draw Fee 09:02:51 LICENSED REACTOR OPERATOR CPT-60006 Venipuncture Draw Fee 12:45:08 LICENSED REACTOR OPERATOR CPT-34069 Venipuncture Draw Fee 09:25:31 CDT CPT-G0008 Administration of Influenza Virus Vaccine 14:41:29 CDT CPT-90938 Fluzone High-Dose Intramuscular Suspension 14:41:29 CDT CPT-Cryo Cryotherapy 11:48:20 CDT CPT-07010 EKG Trac and Interp 09:21:58 CDT CPT-63731 Chest 2V Frontal and Lat 09:21:58 CDT CPT-Cryo Cryotherapy 10:54:51 LICENSED REACTOR OPERATOR CPT-26297 Administration 2+ single or combination vaccines inc oral 10:42:19 CDT CPT-92052 Administration single or combination vaccine inc oral 10 :42:19 CDT CPT-31267 Pneumovax 10:42:19 CDT CPT-87038 Influenza High Dose age 65+ 10:42:19 CDT CPT-56846 Administration single or combination vaccine inc oral 13 :18:54 CDT CPT-99837 Influenza High Dose age 65+ 13:18:54 CDT CPT-70274 Venipuncture Draw Fee 11:53:16 CDT CPT-45467 LS spine comp w obliq 11:03:13 CDT CPT-Cryo Cryotherapy 08:27:16 LICENSED REACTOR OPERATOR CPT-70816 Administration single or combination vaccine inc oral 10 :56:34 CDT CPT-86932 Influenza High Dose age 65+ 10:56:34 CDT
[2018-03-31] MEDS ORDERED: APIX2.5T PO (17:21)
[2018-03-31] MEDS ORDERED: INSU100V5 SQ (17:21)
[2018-03-31] MEDS ORDERED: BUME1TAB4 PO (17:21)
[2018-03-31] MEDS ORDERED: FLEC50TA PO (17:21)
--- OUTSIDE RECORDS SUMMARY | 2018-03-31 17:21 | XMS REPORT | Clinical Summary ---
Author Author Admin, RAFFI Organization [facility] Address Unknown Phone Unavailable Allergies, Adverse Reactions, Alerts Allergy Name Reaction Description Start Date Severity Status Provider No Known Allergies [facility] Conditions or Problems Problem Name Problem [...] puffs in each nostril daily FLUTICASONE PROPIONATE 61486110226 Active Simon Castillo MD Active CLOTRIMAZOLE 1 % EXT CREA Apply to affected area of feet twice daily PRN Rash CLOTRIMAZOLE 34279408778 Active Simon Castillo MD Active SYMBICORT 160-4.5 MCG/ACT AERO 2 puff BID BUDESONIDE- FORMOTEROL FUMARATE 14315664865 Active Simon Castillo MD Active PREDNISONE 20 MG TAB 2 tabs daily for 3 days, 1 tab daily for 3 days, 1/2 tab daily for 2 days PREDNISONE 94708884745 No Longer Active Simon Castillo MD Active AZITHROMYCIN 250 MG TABS 2 po qd x 1 day, then 1 po qd x 4 days AZITHROMYCIN 62387626532 No Longer Active Simon Castillo MD Active LISINOPRIL 10 MG TABS 1 tablet by mouth daily LISINOPRIL 61765299926 Active Simon Castillo MD Active GLIMEPIRIDE 1 MG TABS 1 po q a.m. GLIMEPIRIDE 87378062140 Active Simon Castillo MD Active CARVEDILOL 6.25 MG TABS 1 po BID CARVEDILOL 71442238963 Active Simon Castillo MD Active LISINOPRIL-HYDROCHLOROTHIAZIDE 20-12.5 MG TABS 1/2 tab by mouth daily LISINOPRIL-HYDROCHLOROTHIAZIDE 02119634413 No Longer Active Simon Castillo MD Active PREDNISONE 5 MG TABS 1 po qod PREDNISONE 47338653401 Active Simon Castillo MD Active TRAMADOL HCL 50 MG TABS 1-2 tablets every 6 hours as needed for pain TRAMADOL HCL 58779055320 Active Simon Castillo MD Active PREDNISONE 5 MG TAB Take one po qod PREDNISONE 98433284116 No Longer Active Simon Castillo MD Active GLYBURIDE 5 MG TAB Take one by mouth daily GLYBURIDE 24400336424 No Longer Active Simon Castillo MD Active LEVAQUIN 750 MG TABS 1 po qod x 5 doses LEVOFLOXACIN 17945112609 No Longer Active Simon Castillo MD Active CETIRIZINE HCL 10 MG TABS 1 po qd as needed for allergies CETIRIZINE HCL 61718120924 No Longer Active Simon Castillo MD Active FISH OIL 1000 MG CPDR 1 pill by mouth twice daily for cholesterol OMEGA -3 FATTY ACIDS 73030882519 Active Simon Castillo MD Active BILBERRY CAPS 1 tab daily BILBERRY (VACCINIUM MYRTILLUS) CAPS 32437027321 Active Simon Castillo MD Active ATENOLOL 50 MG TABS Take one by mouth daily ATENOLOL 96848509651 No Longer Active Simon Castillo MD Active FLONASE 50 MCG/ACT SUSP 2 puffs in each nostril daily FLUTICASONE PROPIONATE 88112229045 No Longer Active Simon Castillo MD Active GLYBURIDE 5 MG TAB Take one by mouth daily GLYBURIDE 71163885508 No Longer Active Simon Castillo MD Active SYMBICORT 80-4.5 MCG/ACT AERO 2 puffs twice a day BUDESONIDE-FORMOTEROL FUMARATE 96745469303 No Longer Active Simon Castillo MD Active PREDNISONE 20 MG TAB 2 tabs daily for 4 days, 1 tab daily for 4 days, 1/2 tab daily for 4 days PREDNISONE 02420643257 No Longer Active Simon Castillo MD Active AMOXICILLIN 500 MG CAPS 2 po BID x 10 days AMOXICILLIN 85765979776 No Longer Active Simon Castillo MD Active METFORMIN HCL 1000 MG TABS 1 by mounth twice a day METFORMIN HCL 52865667420 No Longer Active Simon Castillo MD Active LUTEIN-ZEAXANTHIN 6-1 MG TABS Take 2 by mouth daily LUTEIN-ZEAXANTHIN 21519430180 Active Simon Castillo MD Active IBUPROFEN 800 MG TABS Take 1 tab every 6 hrs prn IBUPROFEN 04670934309 No Longer Active Simon Castillo MD Active GLYBURIDE 2.5 MG TABS Take one by mouth daily GLYBURIDE 44279962297 No Longer Active Simon Castillo MD Active LANCETS MISC 2 qd LANCETS 15621020946 Active Pamela Conde Active ACACIA CONTOUR TEST STRP Use with testing twice daily GLUCOSE BLOOD 95872727105 Active Pamela Conde Active ACACIA ASPIRIN 325 MG TABS Take one by mouth daily ASPIRIN 47821448926 Active Pamela Conde Active GLYBURIDE 2.5 MG TABS Take one by mouth daily GLYBURIDE 2.5 MG TABS 066265 GLYBURIDE Inactive PREDNISONE 20 MG TAB 2 tabs daily for 4 days, 1 tab daily for 4 days, 1/2 tab daily for 4 days PREDNISONE 20 MG TAB 830254 PREDNISONE Inactive SYMBICORT 80-4.5 MCG/ACT AERO 2 puffs twice a day SYMBICORT 80-4.5 MCG/ACT AERO BUDESONIDE-FORMOTEROL FUMARATE Inactive FLONASE 50 MCG/ACT SUSP 2 puffs in each nostril daily FLONASE 50 MCG/ACT SUSP FLUTICASONE PROPIONATE Inactive ATENOLOL 50 MG TABS Take one by mouth daily ATENOLOL 50 MG TABS 496163 ATENOLOL Inactive CETIRIZINE HCL 10 MG TABS 1 po qd as needed for allergies CETIRIZINE HCL 10 MG TABS 0465928 CETIRIZINE HCL Inactive LEVAQUIN 750 MG TABS 1 po qod x 5 doses LEVAQUIN 750 MG TABS 389919 LEVOFLOXACIN Inactive GLYBURIDE 5 MG TAB Take one by mouth daily GLYBURIDE 5 MG TAB 203653 GLYBURIDE Inactive PREDNISONE 5 MG TAB Take one po qod PREDNISONE 5 MG TAB 685248 PREDNISONE Inactive AMOXICILLIN 500 MG CAPS 2 po BID x 10 days AMOXICILLIN 500 MG CAPS 782820 AMOXICILLIN Inactive GLYBURIDE 5 MG TAB Take one by mouth daily GLYBURIDE 5 MG TAB 368027 GLYBURIDE Inactive AZITHROMYCIN 250 MG TABS 2 po qd x 1 day, then 1 po qd x 4 days AZITHROMYCIN 250 MG TABS 5379500 AZITHROMYCIN Inactive PREDNISONE 20 MG TAB 2 tabs daily for 3 days, 1 tab daily for 3 days, 1/2 tab daily for 2 days PREDNISONE 20 MG TAB 958219 PREDNISONE Inactive Immunizations Vaccine Administration Date Value [...] Panel - Chemistry sodium, serum 137 mmol/L 224-001 8526/10/14 potassium, serum 5.6 mmol/L 3.5-5.2 chloride, serum 103 mmol/L 98-107 carbon dioxide, venous blood 24.9 mmol/L 21.0-32.0 blood glucose 200 mg/dL 65-110 urea nitrogen, blood 43 mg/dL 7-18 creatinine, serum 2.60 mg/dL 0.60-1.30 calcium, serum 9.1 mg/dL 8.5-10.1 sodium, serum 139 mmol/L 947-754 1355/11/13 potassium, serum 5.8 mmol/L 3.5-5.2 chloride, serum 105 mmol/L 98-107 carbon dioxide, venous blood 22.2 mmol/L 21.0-32.0 blood glucose 156 mg/dL 65-110 urea nitrogen, blood 49 mg/dL 7-18 creatinine, serum 2.30 mg/dL 0.60-1.30 calcium, serum 9.2 mg/dL 8.5-10.1 sodium, serum 140 mmol/L 010-408 4686/12/12 potassium, serum 5.5 mmol/L 3.5-5.2 chloride, serum [...] % 11.6-14.8 platelet count 217 10^3/MM^3 10*3/mm3 426-306 9764/10/14 leukocyte count, blood 9.2 10^3/MM^3 10*3/mm3 4.6-10.2 erythrocyte (RBC) count 4.67 10^6/MM^3 10*6/mm3 4.69-6.13 hemoglobin, blood 13.9 g/dL 13.5-17.5 hematocrit, blood 42.4 % 41.0-53.0 mean corpuscular volume, RBC 91 fL 80-97 mean corpuscular hemoglobin, RBC 29.7 pg 27.0-31.2 mean corpuscular hemoglobin concentration, RBC 32.8 G/DL % 31.8- 35.4 red blood cell distribution width 14.7 % 11.6-14.8 platelet count 214 10^3/MM^3 10*3/mm3 410-823 0269/11/13 leukocyte count, blood 9.7 10^3/MM^3 10*3/mm3 4.6-10.2 [...] count 241 10^3/MM^3 10*3/mm3 142-424 Lab Report: Comp. Metabolic Panel, HGBA1C - Chemistry sodium, serum 139 mmol/L 381-095 4437/07/09 potassium, serum 5.4 mmol/L 3.5-5.2 chloride, serum [...] Panel - Chemistry sodium, serum 140 mmol/L 575-833 5838/11/17 potassium, serum 5.0 mmol/L 3.5-5.2 chloride, serum 104 mmol/L 98-107 carbon dioxide, venous blood 24.8 mmol/L 21.0-32.0 blood glucose 146 mg/dL 65-110 urea nitrogen, blood 46 mg/dL 7-18 creatinine, serum 2.60 mg/dL 0.60-1.30 calcium, serum 9.2 mg/dL 8.5-10.1 sodium, serum 139 mmol/L 788-659 5483/10/21 potassium, serum 4.7 mmol/L 3.5-5.2 chloride, serum 104 mmol/L 98-107 carbon dioxide, venous blood 26.1 mmol/L 21.0-32.0 blood glucose 148 mg/dL 65-110 urea nitrogen, blood 38 mg/dL 7-18 creatinine, serum 2.60 mg/dL 0.60-1.30 calcium, serum 8.6 mg/dL 8.5-10.1 Encounters Code Encounter Date Provider Facility CPT-90057 Level 4 Est. Patient 08:47:25 CDT Simon Castillo MD [facility] CPT-55200 Level 4 Est. Patient 10:17:25 CDT Simon Castillo MD [facility] CPT-54734 Level 4 Est. Patient 10:10:09 VACCINE MANAGER Simon Castillo MD [facility] CPT-85417 Level 4 Est. Patient 11:48:19 CDT Simon Castillo MD [facility] CPT-84024 Level 4 Est. Patient 08:59:29 CDT Simon Castillo MD [facility] CPT-52975 Level 4 Est. Patient 10:52:51 VACCINE MANAGER Simon Castillo MD [facility] CPT-09815 Level 4 Est. Patient 11:50:30 CDT Simon Castillo MD [facility] CPT-31768 Level 4 Est. Patient 09:54:46 CDT Simon Castillo MD [facility] CPT-97167 Level 3 Est. Patient 11:10:14 CDT Simon Castillo MD [facility] CPT-77150 Level 4 Est. Patient 09:44:02 CDT Simon Castillo MD [facility] CPT-70987 Level 3 Est. Patient 09:27:48 CDT Simon Castillo MD [facility] CPT-79911 Level 3 Est. Patient 09:58:06 VACCINE MANAGER Simon Castillo MD [facility] CPT-08798 Level 3 Est. Patient 09:51:35 CDT Simon Castillo MD [facility] Procedures Code Procedure Name Date Entry Date Standard Description CPT-34771 Venipuncture Draw Fee 08:07:29 VACCINE MANAGER CPT-42556 Venipuncture Draw Fee 09:02:51 VACCINE MANAGER CPT-15144 Venipuncture Draw Fee 12:45:08 VACCINE MANAGER CPT-20045 Venipuncture Draw Fee 09:25:31 CDT CPT-G0008 Administration of Influenza Virus Vaccine 14:41:29 CDT CPT-95440 Fluzone High-Dose Intramuscular Suspension 14:41:29 CDT CPT-Cryo Cryotherapy 11:48:20 CDT CPT-03650 EKG Trac and Interp 09:21:58 CDT CPT-20968 Chest 2V Frontal and Lat 09:21:58 CDT CPT-Cryo Cryotherapy 10:54:51 VACCINE MANAGER CPT-13816 Administration 2+ single or combination vaccines inc oral 10:42:19 CDT CPT-10348 Administration single or combination vaccine inc oral 10 :42:19 CDT CPT-86779 Pneumovax 10:42:19 CDT CPT-18499 Influenza High Dose age 65+ 10:42:19 CDT CPT-77296 Administration single or combination vaccine inc oral 13 :18:54 CDT CPT-89702 Influenza High Dose age 65+ 13:18:54 CDT CPT-24269 Venipuncture Draw Fee 11:53:16 CDT CPT-83943 LS spine comp w obliq 11:03:13 CDT CPT-Cryo Cryotherapy 08:27:16 VACCINE MANAGER CPT-30930 Administration single or combination vaccine inc oral 10 :56:34 CDT CPT-67396 Influenza High Dose age 65+ 10:56:34 CDT
--- OUTSIDE RECORDS SUMMARY | 2018-03-31 17:21 | XMS REPORT | Clinical Summary ---
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 Rosy Farosa RMA Rheumatoid arthritis Pharyngitis 462 Active Giles Tatum 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 Acute pharyngitis FH DIABETES ICD-V18.0 Inactive Simon [...] ICD-729.5 Inactive Simon Castillo MD Steroid use, medical terminologist ICD-V58.65 Inactive Simon Castillo MD Hand pain, bilateral ICD-729.5 Inactive Simon Castillo MD Medication List Medication Instructions Start Date Stop Date Generic Name NDC Status Provider Patient Instruction CLARITIN 10 MG TAB 1 tablet by mouth daily as needed for allergies LORATADINE 62872933522 Active Jillina Fraamayal 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 Active PREDNISONE 20 MG TAB 1 tablet daily for airway inflammation PREDNISONE 89456725384 Active Jillina Frazell 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 Active AZITHROMYCIN 250 MG TABS 2 po qd x 1 day, then 1 po qd x 4 days AZITHROMYCIN 84238135800 No Longer Active Jillina Lolyl 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 Active GLIMEPIRIDE 2 MG ORAL TABS 1 po q a.m. GLIMEPIRIDE 67965888634 Active Simon Castillo MD Active HYDROCODONE-ACETAMINOPHEN 5-325 MG TABS 1 tab by mouth 8 hours as needed for pain HYDROCODONE-ACETAMINOPHEN 80767594868 Active Simon Castillo MD Active TRAMADOL HCL 50 MG TABS 1 po q6hr PRN Pain TRAMADOL HCL 10409370866 No Longer Active Simon Castillo MD Active PREDNISONE 5 MG TAB 1-2 tabs daily for rheumatoid arthritis PREDNISONE 27976097261 Active Simon Castillo MD Active PREDNISONE 5 MG TABS 1 po qod PREDNISONE 52067079443 No Longer Active Simon Castillo MD Active SYMBICORT 160-4.5 MCG/ACT AERO 2 puff BID BUDESONIDE- FORMOTEROL FUMARATE 97335772450 No Longer Active Simon Castillo MD Active FLONASE 50 MCG/ACT SUSP 2 puffs in each nostril daily FLUTICASONE PROPIONATE 49430292967 No Longer Active Simon Castillo MD Active PREDNISONE 20 MG TAB 2 tabs daily for 5 days, then 1 daily for 5 days PREDNISONE 16639303341 No Longer Active Simon Castillo MD Active PREDNISONE 20 MG TAB 2 tabs daily for 5 days, then 1 daily for 5 days, then 0.5 for 4 days PREDNISONE 52719268649 No Longer Active Simon Castillo MD Active CLOTRIMAZOLE 1 % EXT CREA Apply to affected area of feet twice daily PRN Rash CLOTRIMAZOLE 65160088362 Active Simon Castillo MD Active PREDNISONE 20 MG TAB 2 tabs daily for 3 days, 1 tab daily for 3 days, 1/2 tab daily for 2 days PREDNISONE 44569116806 No Longer Active Simon Castillo MD Active AZITHROMYCIN 250 MG TABS 2 po qd x 1 day, then 1 po qd x 4 days AZITHROMYCIN 18791104667 No Longer Active Simon Castillo MD Active LISINOPRIL 10 MG TABS 1 tablet by mouth daily LISINOPRIL 62152426969 Active Simon Castillo MD Active CARVEDILOL 6.25 MG TABS 1 po BID CARVEDILOL 97460582720 Active Simon Castillo MD Active LISINOPRIL-HYDROCHLOROTHIAZIDE 20-12.5 MG TABS 1/2 tab by mouth daily LISINOPRIL-HYDROCHLOROTHIAZIDE 11555023106 No Longer Active Simon Castillo MD Active TRAMADOL HCL 50 MG TABS 1-2 tablets every 6 hours as needed for pain TRAMADOL HCL 77875481813 Active Giles Tatum APRN Active PREDNISONE 5 MG TAB Take one po qod PREDNISONE 62380437965 No Longer Active Simon Castillo MD Active GLYBURIDE 5 MG TAB Take one by mouth daily GLYBURIDE 07914550023 No Longer Active Simon Castillo MD Active LEVAQUIN 750 MG TABS 1 po qod x 5 doses LEVOFLOXACIN 43077488299 No Longer Active Simon Castillo MD Active CETIRIZINE HCL 10 MG TABS 1 po qd as needed for allergies CETIRIZINE HCL 82178320704 No Longer Active Simon Castillo MD Active FISH OIL 1000 MG CPDR 1 pill by mouth twice daily for cholesterol OMEGA -3 FATTY ACIDS 06004948482 Active Simon Castillo MD Active BILBERRY CAPS 1 tab daily BILBERRY (VACCINIUM MYRTILLUS) CAPS 69835701750 Active Simon Castillo MD Active ATENOLOL 50 MG TABS Take one by mouth daily ATENOLOL 40577644544 No Longer Active Simon Castillo MD Active FLONASE 50 MCG/ACT SUSP 2 puffs in each nostril daily FLUTICASONE PROPIONATE 79377093653 No Longer Active Simon Castillo MD Active GLYBURIDE 5 MG TAB Take one by mouth daily GLYBURIDE 86326643999 No Longer Active Simon Castillo MD Active SYMBICORT 80-4.5 MCG/ACT AERO 2 puffs twice a day BUDESONIDE-FORMOTEROL FUMARATE 67318674412 No Longer Active Simon Castillo MD Active PREDNISONE 20 MG TAB 2 tabs daily for 4 days, 1 tab daily for 4 days, 1/2 tab daily for 4 days PREDNISONE 13016349666 No Longer Active Simon Castillo MD Active AMOXICILLIN 500 MG CAPS 2 po BID x 10 days AMOXICILLIN 85511535535 No Longer Active Simon Castillo MD Active METFORMIN HCL 1000 MG TABS 1 by mounth twice a day METFORMIN HCL 96931475028 No Longer Active Simon Castillo MD Active LUTEIN-ZEAXANTHIN 6-1 MG TABS Take 2 by mouth daily LUTEIN-ZEAXANTHIN 37264838937 Active Simon Castillo MD Active IBUPROFEN 800 MG TABS Take 1 tab every 6 hrs prn IBUPROFEN 87177271731 No Longer Active Simon Catsillo MD Active GLYBURIDE 2.5 MG TABS Take one by mouth daily GLYBURIDE 36889506536 No Longer Active Simon Castillo MD Active LANCETS MISC 2 qd LANCETS 98395038887 Active Pamela Conde Active ACACIA CONTOUR TEST STRP Use with testing twice daily GLUCOSE BLOOD 59421545004 Active Simon Castillo MD Active ACACIA ASPIRIN 325 MG TABS Take one by mouth daily ASPIRIN 30620153300 Active Pamela Conde Active GLYBURIDE 2.5 MG TABS Take one by mouth daily GLYBURIDE 2.5 MG TABS 582941 GLYBURIDE Inactive PREDNISONE 20 MG TAB 2 tabs daily for 4 days, 1 tab daily for 4 days, 1/2 tab daily for 4 days PREDNISONE 20 MG TAB 062001 PREDNISONE Inactive SYMBICORT 80-4.5 MCG/ACT AERO 2 puffs twice a day SYMBICORT 80-4.5 MCG/ACT AERO BUDESONIDE-FORMOTEROL FUMARATE Inactive FLONASE 50 MCG/ACT SUSP 2 puffs in each nostril daily FLONASE 50 MCG/ACT SUSP 155187 FLUTICASONE PROPIONATE Inactive ATENOLOL 50 MG TABS Take one by mouth daily ATENOLOL 50 MG TABS 668337 ATENOLOL Inactive CETIRIZINE HCL 10 MG TABS 1 po qd as needed for allergies CETIRIZINE HCL 10 MG TABS 6084127 CETIRIZINE HCL Inactive LEVAQUIN 750 MG TABS 1 po qod x 5 doses LEVAQUIN 750 MG TABS 068996 LEVOFLOXACIN Inactive GLYBURIDE 5 MG TAB Take one by mouth daily GLYBURIDE 5 MG TAB 382711 GLYBURIDE Inactive PREDNISONE 5 MG TAB Take one po qod PREDNISONE 5 MG TAB 795706 PREDNISONE Inactive PREDNISONE 20 MG TAB 2 tabs daily for 5 days, then 1 daily for 5 days PREDNISONE 20 MG TAB 153695 PREDNISONE Inactive FLONASE 50 MCG/ACT SUSP 2 puffs in each nostril daily FLONASE 50 MCG/ACT SUSP 387271 FLUTICASONE PROPIONATE Inactive SYMBICORT 160-4.5 MCG/ACT AERO 2 puff BID SYMBICORT 160-4.5 MCG/ACT AERO BUDESONIDE-FORMOTEROL FUMARATE Inactive PREDNISONE 5 MG TABS 1 po qod PREDNISONE 5 MG TABS 995302 PREDNISONE Inactive AMOXICILLIN 500 MG CAPS 2 po BID x 10 days AMOXICILLIN 500 MG CAPS 115223 AMOXICILLIN Inactive GLYBURIDE 5 MG TAB Take one by mouth daily GLYBURIDE 5 MG TAB 553708 GLYBURIDE Inactive AZITHROMYCIN 250 MG TABS 2 po qd x 1 day, then 1 po qd x 4 days AZITHROMYCIN 250 MG TABS 4788063 AZITHROMYCIN Inactive PREDNISONE 20 MG TAB 2 tabs daily for 3 days, 1 tab daily for 3 days, 1/2 tab daily for 2 days PREDNISONE 20 MG TAB 664924 PREDNISONE Inactive PREDNISONE 20 MG TAB 2 tabs daily for 5 days, then 1 daily for 5 days, then 0.5 for 4 days PREDNISONE 20 MG TAB 014999 PREDNISONE Inactive AZITHROMYCIN 250 MG TABS 2 po qd x 1 day, then 1 po qd x 4 days AZITHROMYCIN 250 MG TABS 3816499 AZITHROMYCIN Inactive Immunizations Vaccine Administration Date Value [...] Panel - Chemistry sodium, serum 132 mmol/L 012-842 1659/10/26 carbon dioxide, venous blood 22.8 mmol/L 21.0-32.0 [...] Panel - Chemistry sodium, serum 139 mmol/L 231-508 6574/03/17 carbon dioxide, venous blood 29.0 mmol/L 21.0-32.0 [...] Rate - Chemistry sodium, serum 136 mmol/L 649-581 3834/09/18 carbon dioxide, venous blood 24.3 mmol/L 21.0-32.0 [...] HGBA1C - Chemistry sodium, serum 139 mmol/L 034-979 0931/07/09 potassium, serum 5.4 mmol/L 3.5-5.2 chloride, serum [...] Report: HGBA1C, Basic Metabolic Panel - Chemistry chloride, serum 103 mmol/L 98-107 potassium, serum 5.1 mmol/L 3.5-5.2 sodium, serum 137 mmol/L 188-181 3850/02/12 hemoglobin A1C, blood, as % of total hemoglobin 8.5 % 4.3-6.0 carbon dioxide, venous blood 24.4 mmol/L 21.0-32.0 blood glucose 261 mg/dL 65-110 calcium, serum 9.0 mg/dL 8.5-10.1 urea nitrogen, blood 44 mg/dL 7-18 creatinine, serum 2.37 mg/dL 0.55-1.30 Lab Report: Lipid Panel - Chemistry cholesterol, serum 139 mg/dL 647-605 1799/09/10 triglyceride, serum, fasting 176 mg/dL 30-200 HDL cholesterol, serum 45 mg/dL 32-96 LDL cholesterol, serum 59 mg/dL 0-130 Lab Report: MICROALBUMIN - Chemistry albumin/creatinine ratio, urine 30 - 300 mg/g mg/g{creat} 0-29 Lab Report: MICROALBUMIN - Lab microalbumin, urine 30 0-19 Encounters Code Encounter Date Provider Facility CPT-74898 Level 3 Est. Patient 09:08:44 CDT Giles Tatum APRN [facility] CPT-16421 Level 4 Est. Patient 09:17:32 MANAGED CARE COORDINATOR Simon Castillo MD [facility] CPT-42721 Level 3 Est. Patient 11:22:22 MANAGED CARE COORDINATOR Simon Castillo MD [facility] CPT-12034 Level 3 Est. Patient 09:02:14 CDT Simon Castillo MD [facility] CPT-37410 Level 4 Est. Patient 08:47:25 CDT Simon Castillo MD [facility] CPT-08897 Level 4 Est. Patient 10:17:25 CDT Simon Castillo MD [facility] CPT-57931 Level 4 Est. Patient 10:10:09 MANAGED CARE COORDINATOR Simon Castillo MD [facility] CPT-62628 Level 4 Est. Patient 11:48:19 CDT Simon Castillo MD [facility] CPT-52884 Level 4 Est. Patient 08:59:29 CDT Simon Castillo MD [facility] CPT-05852 Level 4 Est. Patient 10:52:51 MANAGED CARE COORDINATOR Simon Castillo MD [facility] CPT-21951 Level 4 Est. Patient 11:50:30 CDT Simon Castillo MD [facility] CPT-59988 Level 4 Est. Patient 09:54:46 CDT Simon Castillo MD [facility] CPT-07430 Level 3 Est. Patient 11:10:14 CDT Simon Castillo MD [facility] CPT-53128 Level 4 Est. Patient 09:44:02 CDT Simon Castillo MD [facility] CPT-23300 Level 3 Est. Patient 09:27:48 CDT Simon Castillo MD [facility] CPT-92776 Level 3 Est. Patient 09:58:06 MANAGED CARE COORDINATOR Simon Castillo MD [facility] CPT-15543 Level 3 Est. Patient 09:51:35 CDT Simon Castillo MD [facility] Procedures Code Procedure Name Date Entry Date Standard Description CPT-33978 Venipuncture Draw Fee 13:33:02 CDT CPT-45213 Bone Density 09:37:49 MANAGED CARE COORDINATOR CPT-44494 Fluzone High Dose 17:20:42 CDT CPT-93842 Prevnar 13 17:20:42 CDT CPT-78963 Administration 2+ single or combination vaccines inc oral 17:20:42 CDT CPT-72269 Administration single or combination vaccine inc oral 17 :20:42 CDT CPT-19910 Hand comp min 3V 09:24:38 CDT CPT-19075 Venipuncture Draw Fee 08:07:29 MANAGED CARE COORDINATOR CPT-83340 Venipuncture Draw Fee 09:02:51 MANAGED CARE COORDINATOR CPT-37069 Venipuncture Draw Fee 12:45:08 MANAGED CARE COORDINATOR CPT-47523 Venipuncture Draw Fee 09:25:31 CDT CPT-G0008 Administration of Influenza Virus Vaccine 14:41:29 CDT CPT-63548 Fluzone High-Dose Intramuscular Suspension 14:41:29 CDT CPT-Cryo Cryotherapy 11:48:20 CDT CPT-43418 EKG Trac and Interp 09:21:58 CDT CPT-82633 Chest 2V Frontal and Lat 09:21:58 CDT CPT-Cryo Cryotherapy 10:54:51 MANAGED CARE COORDINATOR CPT-79171 Administration 2+ single or combination vaccines inc oral 10:42:19 CDT CPT-85688 Administration single or combination vaccine inc oral 10 :42:19 CDT CPT-01596 Pneumovax 10:42:19 CDT CPT-37301 Influenza High Dose age 65+ 10:42:19 CDT CPT-77614 Administration single or combination vaccine inc oral 13 :18:54 CDT CPT-58361 Influenza High Dose age 65+ 13:18:54 CDT CPT-72216 Venipuncture Draw Fee 11:53:16 CDT CPT-51720 LS spine comp w obliq 11:03:13 CDT CPT-Cryo Cryotherapy 08:27:16 MANAGED CARE COORDINATOR CPT-77319 Administration single or combination vaccine inc oral 10 :56:34 CDT CPT-60318 Influenza High Dose age 65+ 10:56:34 CDT
--- OUTSIDE RECORDS SUMMARY | 2018-03-31 17:22 | XMS REPORT | Clinical Summary ---
Author Author Admin, E Organization [employer] Address Unknown Phone Unavailable Allergies, Adverse Reactions, [...] Active Simon Castillo MD Acute sinusitis, unspecified FH DIABETES ICD-V18.0 Inactive Simon Castillo [...] Simon Castillo MD 2012 Actinic keratosis ICD-702.0 Inactive Simon Castillo MD Chest pain ICD-786.50 Inactive Simon Castillo MD Cough ICD-786.2 Inactive Simon Castillo MD Eczema ICD-692.9 Inactive Simon Castillo MD 02/27 Bronchitis, acute ICD-466.0 Inactive Simon Castillo MD Tinea pedis ICD-110.4 Kerry Castillo MD Hand pain, bilateral ICD-729.5 Kerry Castillo MD Obesity ICD-278.00 Inactive Simon Castillo MD 2013 BENIGN PROSTATIC HYPERTROPHY, MILD, HX OF ICD-V13.89 Inactive Simon Castillo MD Steroid use, bed bug exterminator ICD-V58.65 Kerry Castillo MD Hand pain, bilateral [...] Generic Name NDC Status Provider Patient Instruction AUGMENTIN 875-125 MG ORAL TABS 1 po BID x 10 days AMOXICILLIN-POT CLAVULANATE 46074532115 Active Simon Castillo MD Active PIOGLITAZONE HCL 30 MG ORAL TABS 1 po qd PIOGLITAZONE HCL 80737820181 Active Simon Castillo MD Active GLIMEPIRIDE 4 MG ORAL TABS 1 po BID GLIMEPIRIDE 66887774160 Active Simon Castillo MD Active ASPIRIN EC 81 MG ORAL TBEC 1 po qd ASPIRIN 47182486269 Active Simon Castillo MD Active CLOTRIMAZOLE 1 % EXT CREA Apply to affected area of feet twice daily PRN Rash CLOTRIMAZOLE 99716945225 No Longer Active Simon Castillo MD Active PREDNISONE 5 MG TAB 1 po BID PREDNISONE 01777802508 Active Simon Castillo MD Active FISH OIL 1000 MG CPDR 1 po BID OMEGA-3 FATTY ACIDS 37472656728 Active Simon Castillo MD Active LISINOPRIL 10 MG TABS 1 p qd LISINOPRIL 08039110055 Active Simon Castillo MD Active CLARITIN 10 MG TAB 1 tablet by mouth daily as needed for allergies LORATADINE 57153199002 No Longer Active Simon Castillo MD Active TRIAMCINOLONE ACETONIDE 0.1 % OINT Apply to affected areas TID for up to 2 weeks TRIAMCINOLONE ACETONIDE 96175946451 No Longer Active Simon Castillo MD Active LASIX 20 MG TAB 1 tablet by mouth daily x 2 days FUROSEMIDE 85659109318 No Longer Active Simon Castillo MD Active SULFASALAZINE 500 MG ORAL TBEC 2 tabs BID SULFASALAZINE 67113649679 No Longer Active Neto Oshea DO Active PREDNISONE 20 MG TAB 2 tabs daily for 3 days, 1 tab daily for 3 days, 1/2 tab daily for 2 days PREDNISONE 89233576300 No Longer Active Jillina 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 PREDNISONE 20 MG TAB 1 tablet daily for airway inflammation 02/25 PREDNISONE 13134731524 No Longer Active 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 AZITHROMYCIN 250 MG TABS 2 po qd x 1 day, then 1 po qd x 4 days AZITHROMYCIN 37620575311 No Longer Active Jillina Framaayal 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 HYDROCODONE-ACETAMINOPHEN 5-325 MG TABS 1 tab by mouth 8 hours as needed for pain HYDROCODONE-ACETAMINOPHEN 71098690215 Active Simon Castillo MD Active TRAMADOL HCL 50 MG TABS 1 po q6hr PRN Pain TRAMADOL HCL 92424184289 No Longer Active Simon Castillo MD Active PREDNISONE 5 MG TABS 1 po qod PREDNISONE 70162169681 No Longer Active Simon Castillo MD Active SYMBICORT 160-4.5 MCG/ACT AERO 2 puff BID BUDESONIDE- FORMOTEROL FUMARATE 48495112924 No Longer Active Simon Castillo MD Active FLONASE 50 MCG/ACT SUSP 2 puffs in each nostril daily FLUTICASONE PROPIONATE 32178739311 No Longer Active Simon Castillo MD Active PREDNISONE 20 MG TAB 2 tabs daily for 5 days, then 1 daily for 5 days PREDNISONE 67948863889 No Longer Active Simon Castillo MD Active PREDNISONE 20 MG TAB 2 tabs daily for 5 days, then 1 daily for 5 days, then 0.5 for 4 days PREDNISONE 97026010151 No Longer Active Simon Castillo MD Active PREDNISONE 20 MG TAB 2 tabs daily for 3 days, 1 tab daily for 3 days, 1/2 tab daily for 2 days PREDNISONE 62247277045 No Longer Active Simon Castillo MD Active AZITHROMYCIN 250 MG TABS 2 po qd x 1 day, then 1 po qd x 4 days AZITHROMYCIN 14775206140 No Longer Active Simon Castillo MD Active CARVEDILOL 6.25 MG TABS 1 po BID CARVEDILOL 51699252415 Active Simon Castillo MD Active LISINOPRIL-HYDROCHLOROTHIAZIDE 20-12.5 MG TABS 1/2 tab by mouth daily LISINOPRIL-HYDROCHLOROTHIAZIDE 30204209497 No Longer Active Simon Castillo MD Active TRAMADOL HCL 50 MG TABS 1-2 tablets every 6 hours as needed for pain TRAMADOL HCL 93320558076 Active Giles Tatum APRN Active PREDNISONE 5 MG TAB Take one po qod PREDNISONE 98432831856 No Longer Active Simon Castillo MD Active GLYBURIDE 5 MG TAB Take one by mouth daily GLYBURIDE 66710816882 No Longer Active Simon Castillo MD Active LEVAQUIN 750 MG TABS 1 po qod x 5 doses LEVOFLOXACIN 74023976786 No Longer Active Simon Castillo MD Active CETIRIZINE HCL 10 MG TABS 1 po qd as needed for allergies CETIRIZINE HCL 54400967263 No Longer Active Smion Castillo MD Active BILBERRY CAPS 1 tab daily BILBERRY (VACCINIUM MYRTILLUS) CAPS 16329176215 Active Simon Castillo MD Active ATENOLOL 50 MG TABS Take one by mouth daily ATENOLOL 57245037698 No Longer Active Simon Castillo MD Active FLONASE 50 MCG/ACT SUSP 2 puffs in each nostril daily FLUTICASONE PROPIONATE 97426519184 No Longer Active Simon Castillo MD Active GLYBURIDE 5 MG TAB Take one by mouth daily GLYBURIDE 61274772981 No Longer Active Simon Castillo MD Active SYMBICORT 80-4.5 MCG/ACT AERO 2 puffs twice a day BUDESONIDE-FORMOTEROL FUMARATE 87559346927 No Longer Active Simon Castillo MD Active PREDNISONE 20 MG TAB 2 tabs daily for 4 days, 1 tab daily for 4 days, 1/2 tab daily for 4 days PREDNISONE 58202417861 No Longer Active Simon Castillo MD Active AMOXICILLIN 500 MG CAPS 2 po BID x 10 days AMOXICILLIN 23681043436 No Longer Active Simon Castillo MD Active METFORMIN HCL 1000 MG TABS 1 by mounth twice a day METFORMIN HCL 55545720452 No Longer Active Simon Castillo MD Active LUTEIN-ZEAXANTHIN 6-1 MG TABS Take 2 by mouth daily LUTEIN-ZEAXANTHIN 58164985441 Active Simon Castillo MD Active IBUPROFEN 800 MG TABS Take 1 tab every 6 hrs prn IBUPROFEN 92823690397 No Longer Active Simon Castillo MD Active GLYBURIDE 2.5 MG TABS Take one by mouth daily GLYBURIDE 67986736708 No Longer Active Simon Castillo MD Active LANCETS MISC 2 qd LANCETS 21604689280 Active Pamela Conde Active ACACIA CONTOUR TEST STRP Use with testing twice daily GLUCOSE BLOOD 13922979890 Active Simon Castillo MD Active GLYBURIDE 2.5 MG TABS Take one by mouth daily GLYBURIDE 2.5 MG TABS 941880 GLYBURIDE Inactive PREDNISONE 20 MG TAB 2 tabs daily for 4 days, 1 tab daily for 4 days, 1/2 tab daily for 4 days PREDNISONE 20 MG TAB 271637 PREDNISONE Inactive SYMBICORT 80-4.5 MCG/ACT AERO 2 puffs twice a day SYMBICORT 80-4.5 MCG/ACT AERO BUDESONIDE-FORMOTEROL FUMARATE Inactive FLONASE 50 MCG/ACT SUSP 2 puffs in each nostril daily FLONASE 50 MCG/ACT SUSP 9429385 FLUTICASONE PROPIONATE Inactive ATENOLOL 50 MG TABS Take one by mouth daily ATENOLOL 50 MG TABS 157204 ATENOLOL Inactive CETIRIZINE HCL 10 MG TABS 1 po qd as needed for allergies CETIRIZINE HCL 10 MG TABS 4478698 CETIRIZINE HCL Inactive LEVAQUIN 750 MG TABS 1 po qod x 5 doses LEVAQUIN 750 MG TABS 387405 LEVOFLOXACIN Inactive GLYBURIDE 5 MG TAB Take one by mouth daily GLYBURIDE 5 MG TAB 835155 GLYBURIDE Inactive PREDNISONE 5 MG TAB Take one po qod PREDNISONE 5 MG TAB 974580 PREDNISONE Inactive PREDNISONE 20 MG TAB 2 tabs daily for 5 days, then 1 daily for 5 days PREDNISONE 20 MG TAB 843978 PREDNISONE Inactive FLONASE 50 MCG/ACT SUSP 2 puffs in each nostril daily FLONASE 50 MCG/ACT SUSP 7400889 FLUTICASONE PROPIONATE Inactive SYMBICORT 160-4.5 MCG/ACT AERO 2 puff BID SYMBICORT 160-4.5 MCG/ACT AERO BUDESONIDE-FORMOTEROL FUMARATE Inactive PREDNISONE 5 MG TABS 1 po qod PREDNISONE 5 MG TABS 294331 PREDNISONE Inactive PREDNISONE 20 MG TAB 1 tablet daily for airway inflammation 02/25 PREDNISONE 20 MG TAB 639682 PREDNISONE Inactive SULFASALAZINE 500 MG ORAL TBEC 2 tabs BID SULFASALAZINE 500 MG ORAL TBEC 997583 SULFASALAZINE Inactive LASIX 20 MG TAB 1 tablet by mouth daily x 2 days LASIX 20 MG TAB 930582 FUROSEMIDE Inactive CLARITIN 10 MG TAB 1 tablet by mouth daily as needed for allergies CLARITIN 10 MG TAB 113099 LORATADINE Inactive CLOTRIMAZOLE 1 % EXT CREA Apply to affected area of feet twice daily PRN Rash CLOTRIMAZOLE 1 % EXT CREA 516132 CLOTRIMAZOLE Inactive AMOXICILLIN 500 MG CAPS 2 po BID x 10 days AMOXICILLIN 500 MG CAPS 407677 AMOXICILLIN Inactive GLYBURIDE 5 MG TAB Take one by mouth daily GLYBURIDE 5 MG TAB 319413 GLYBURIDE Inactive AZITHROMYCIN 250 MG TABS 2 po qd x 1 day, then 1 po qd x 4 days AZITHROMYCIN 250 MG TABS 7199938 AZITHROMYCIN Inactive PREDNISONE 20 MG TAB 2 tabs daily for 3 days, 1 tab daily for 3 days, 1/2 tab daily for 2 days PREDNISONE 20 MG TAB 616807 PREDNISONE Inactive PREDNISONE 20 MG TAB 2 tabs daily for 5 days, then 1 daily for 5 days, then 0.5 for 4 days PREDNISONE 20 MG TAB 231073 PREDNISONE Inactive AZITHROMYCIN 250 MG TABS 2 po qd x 1 day, then 1 po qd x 4 days AZITHROMYCIN 250 MG TABS 9005220 AZITHROMYCIN Inactive PREDNISONE 20 MG TAB 2 tabs daily for 3 days, 1 tab daily for 3 days, 1/2 tab daily for 2 days PREDNISONE 20 MG TAB 915820 PREDNISONE Inactive TRIAMCINOLONE ACETONIDE 0.1 % OINT Apply to affected areas TID for up to 2 weeks TRIAMCINOLONE ACETONIDE 0.1 % OINT 8610934 TRIAMCINOLONE ACETONIDE Inactive Immunizations Vaccine Administration Date [...] Panel - Chemistry cholesterol, serum 126 mg/dL 848-831 2236/02/07 triglyceride, serum, fasting 83 mg/dL 30-200 HDL cholesterol, serum 70 mg/dL 32-96 LDL cholesterol, serum 39 mg/dL 0-130 hemoglobin A1C, blood, as % of total hemoglobin 8.3 % 4.3-6.0 sodium, serum 141 mmol/L 676-406 4993/02/07 carbon dioxide, venous blood 26.0 mmol/L 21.0-32.0 [...] 0.00-1.00 Encounters Code Encounter Date Provider Facility CPT-90188 Level 4 Est. Patient 08:48:38 CDT Simon Castillo MD [facility] CPT-56248 Level 4 Est. Patient 09:54:08 CDT Simon Castillo [facility] CPT-48214 Level 4 Est. Patient 16:11:23 CDT Simon Castillo MD [facility] CPT-98805 Level 4 Est. Patient 09:29:28 SCIENTIST Simon Castillo MD [facility] CPT-33644 Level 3 Est. Patient 09:18:25 CDT Simon Castillo MD [facility] CPT-90353 Level 4 Est. Patient 11:51:23 CDT Simon Castillo MD [facility] CPT-71669 Level 4 Est. Patient 14:32:04 CDT Neto Oshea DO [facility] CPT-73773 Level 3 Est. Patient 08:41:43 CDT Giles Tatum [facility] CPT-31758 Level 3 Est. Patient 08:40:53 CDT Giles Salcidol [facility] CPT-91164 Level 3 Est. Patient 08:36:52 CDT Giles Salcidol [facility] CPT-24139 Level 3 Est. Patient 09:08:44 CDT Giles Salcidol [facility] CPT-89198 Level 4 Est. Patient 09:17:32 SCIENTIST Simon Castillo MD [facility] CPT-71719 Level 3 Est. Patient 11:22:22 SCIENTIST Simon Castillo MD [facility] CPT-49477 Level 3 Est. Patient 09:02:14 CDT Simon Castillo MD [facility] CPT-59192 Level 4 Est. Patient 08:47:25 CDT Simon Castillo MD [facility] CPT-01312 Level 4 Est. Patient 10:17:25 CDT Simon Castillo MD [facility] CPT-35727 Level 4 Est. Patient 10:10:09 SCIENTIST Simon Castillo MD [facility] CPT-91355 Level 4 Est. Patient 11:48:19 CDT Simon Castillo MD [facility] CPT-51355 Level 4 Est. Patient 08:59:29 CDT Simon Castillo MD [facility] CPT-74859 Level 4 Est. Patient 10:52:51 SCIENTIST Simon Castillo MD [facility] CPT-31944 Level 4 Est. Patient 11:50:30 CDT Simon Castillo MD [facility] CPT-12641 Level 4 Est. Patient 09:54:46 CDT Simon Castillo MD [facility] CPT-45221 Level 3 Est. Patient 11:10:14 CDT Simon Castillo MD [facility] CPT-01079 Level 4 Est. Patient 09:44:02 CDT Simon Castillo MD [facility] CPT-56125 Level 3 Est. Patient 09:27:48 CDT Simon Castillo MD [facility] CPT-55310 Level 3 Est. Patient 09:58:06 SCIENTIST Simon Castillo MD [facility] CPT-19866 Level 3 Est. Patient 09:51:35 CDT Simon Castillo MD [facility] Procedures Code Procedure Name Date Entry Date Standard Description CPT-G0439 Subsequent Annual Wellness Exam 09:41:17 CDT CPT-73733 Lipid - LAB USE ONLY 17:15:33 CDT CPT-73648 HGBA1C - LAB USE ONLY 17:15:33 CDT CPT-03776 CMP - LAB USE ONLY 17:15:33 CDT CPT-76228 Venipuncture Draw Fee 17:15:33 CDT CPT-[facility] Transitional Care Mgmt-High 11:01:28 SCIENTIST CPT-65746 First Vx - Ix admin for Medicare patients 17:33:39 CDT CPT-73038 Fluzone High-Dose Intramuscular Suspension 17:33:39 CDT CPT-G0438 Initial Annual Wellness Exam 08:57:30 CDT CPT-10380 Chest 2V Frontal and Lat - XRAY USE ONLY 09:00:14 CDT CPT-35598 Venipuncture Draw Fee 13:33:02 CDT CPT-10296 Bone Density 09:37:49 SCIENTIST CPT-71356 Fluzone High Dose 17:20:42 CDT CPT-92347 Prevnar 13 17:20:42 CDT CPT-89473 Administration 2+ single or combination vaccines inc oral 17:20:42 CDT CPT-69961 Administration single or combination vaccine inc oral 17 :20:42 CDT CPT-22964 Hand comp min 3V 09:24:38 CDT CPT-13301 Venipuncture Draw Fee 08:07:29 SCIENTIST CPT-27296 Venipuncture Draw Fee 09:02:51 SCIENTIST CPT-03490 Venipuncture Draw Fee 12:45:08 SCIENTIST CPT-23380 Venipuncture Draw Fee 09:25:31 CDT CPT-G0008 Administration of Influenza Virus Vaccine 14:41:29 CDT CPT-37562 Fluzone High-Dose Intramuscular Suspension 14:41:29 CDT CPT-Cryo Cryotherapy 11:48:20 CDT CPT-04966 EKG Trac and Interp 09:21:58 CDT CPT-72074 Chest 2V Frontal and Lat 09:21:58 CDT CPT-Cryo Cryotherapy 10:54:51 SCIENTIST CPT-38444 Administration 2+ single or combination vaccines inc oral 10:42:19 CDT CPT-59599 Administration single or combination vaccine inc oral 10 :42:19 CDT CPT-80018 Pneumovax 10:42:19 CDT CPT-90438 Influenza High Dose age 65+ 10:42:19 CDT CPT-26455 Administration single or combination vaccine inc oral 13 :18:54 CDT CPT-95644 Influenza High Dose age 65+ 13:18:54 CDT CPT-65760 Venipuncture Draw Fee 11:53:16 CDT CPT-71165 LS spine comp w obliq 11:03:13 CDT CPT-Cryo Cryotherapy 08:27:16 SCIENTIST CPT-54612 Administration single or combination vaccine inc oral 10 :56:34 CDT CPT-00186 Influenza High Dose age 65+ 10:56:34 CDT
--- OUTSIDE RECORDS SUMMARY | 2018-03-31 17:24 | XMS REPORT | Clinical Summary ---
Author Author Admin, E Organization [facility] Address Unknown Phone Unavailable Allergies, Adverse Reactions, [...] 1 po qd PRN Asthma/Allergies MONTELUKAST SODIUM [id number] Active Simon Castillo MD Active PROMETHAZINE-CODEINE 6.25-10 MG/5ML ORAL SYRUP 5ml po qHS PRN Cough PROMETHAZINE-CODEINE 89749341741 Active Simon Castillo MD Active AZITHROMYCIN 250 MG ORAL TABLET 2 po qd x 1, then 1 po qd x 4 AZITHROMYCIN 31180608807 Active Simon Castillo MD Active PREDNISONE 20 MG ORAL TABLET 2 po qd x 5 days PREDNISONE 39686603832 No Longer Active Simon Castillo MD Active VIAGRA 100 MG ORAL TABLET 0.5 to 1 po qd PRN Erectile dysfunction SILDENAFIL CITRATE 05533499484 Active Simon Castillo MD Active LUTEIN-ZEAXANTHIN 6-1 MG ORAL TABLET 2 po qd LUTEIN- ZEAXANTHIN 50699623717 Active Smion Castillo MD Active BILBERRY CAPSULE 1 po qd BILBERRY (VACCINIUM MYRTILLUS) CAPS 82357994022 Active Simon Castillo MD Active TRAMADOL HCL 50 MG ORAL TABLET 1-2 tablets every 6 hours as needed for pain TRAMADOL HCL 62664320281 No Longer Active Simon Castillo MD Active HYDROCODONE-ACETAMINOPHEN 5-325 MG ORAL TABLET 1 tab by mouth 8 hours as needed for pain HYDROCODONE-ACETAMINOPHEN 06481605230 No Longer Active Simon Castillo MD Active BUMETANIDE 0.5 MG ORAL TABLET 1 po qd BUMETANIDE 51841080196 Active Simon Castillo MD Active AUGMENTIN 875-125 MG ORAL TABLET 1 po BID x 10 days AMOXICILLIN-POT CLAVULANATE 74389406766 No Longer Active Simon Castillo MD Active PIOGLITAZONE HCL 30 MG ORAL TABLET 1 po qd PIOGLITAZONE HCL 77864518789 Active Simon Castillo MD Active GLIMEPIRIDE 4 MG ORAL TABLET 1 po BID GLIMEPIRIDE 74283409419 Active Simon Castillo MD Active ASPIRIN EC 81 MG ORAL TABLET DELAYED RELEASE 1 po qd ASPIRIN 67743927261 Active Simon Castillo MD Active CLOTRIMAZOLE 1 % EXTERNAL CREAM Apply to affected area of feet twice daily PRN Rash CLOTRIMAZOLE 77316816511 No Longer Active Simon Castillo MD Active PREDNISONE 5 MG ORAL TABLET 1 po BID PREDNISONE 89792425434 Active Dolly MCDERMOTT Active FISH OIL 1000 MG ORAL CAPSULE DELAYED RELEASE 1 po BID OMEGA- 3 FATTY ACIDS 80006241321 Active Simon Castillo MD Active LISINOPRIL 10 MG ORAL TABLET 1 p qd LISINOPRIL 23553988233 Active Simon Castillo MD Active CLARITIN 10 MG ORAL TABLET 1 tablet by mouth daily as needed for allergies LORATADINE 77391947795 No Longer Active Simon Castillo MD Active TRIAMCINOLONE ACETONIDE 0.1 % EXTERNAL OINTMENT Apply to affected areas TID for up to 2 weeks TRIAMCINOLONE ACETONIDE 87782857000 No Longer Active Simon Castillo MD Active LASIX 20 MG ORAL TABLET 1 tablet by mouth daily x 2 days FUROSEMIDE 08333275500 No Longer Active Simon Castillo MD Active SULFASALAZINE 500 MG ORAL TABLET DELAYED RELEASE 2 tabs BID 02/26 SULFASALAZINE 54594256486 No Longer Active Neto Oshea DO Active PREDNISONE 20 MG ORAL TABLET 2 tabs daily for 3 days, 1 tab daily for 3 days, 1/2 tab daily for 2 days PREDNISONE 39523214847 No Longer Active Giles Tatum APRN Active PREDNISONE 20 MG ORAL TABLET 1 tablet daily for airway inflammation PREDNISONE 71154925345 No Longer Active Giles Tatum APRN Active AZITHROMYCIN 250 MG ORAL TABLET 2 po qd x 1 day, then 1 po qd x 4 days 01/28 AZITHROMYCIN 78376495906 No Longer Active Giles Tatum APRN Active TRAMADOL HCL 50 MG ORAL TABLET 1 po q6hr PRN Pain TRAMADOL HCL 80871794281 No Longer Active Simon Castillo MD Active PREDNISONE 5 MG ORAL TABLET 1 po qod PREDNISONE 61359855799 No Longer Active Simon Castillo MD Active SYMBICORT 160-4.5 MCG/ACT INHALATION AEROSOL 2 puff BID BUDESONIDE-FORMOTEROL FUMARATE 37170603362 No Longer Active Simon Castillo MD Active FLONASE 50 MCG/ACT NASAL SUSPENSION 2 puffs in each nostril daily FLUTICASONE PROPIONATE 24657580531 No Longer Active Simon Castillo MD Active PREDNISONE 20 MG ORAL TABLET 2 tabs daily for 5 days, then 1 daily for 5 days PREDNISONE 39574175536 No Longer Active Simon Castillo MD Active PREDNISONE 20 MG ORAL TABLET 2 tabs daily for 5 days, then 1 daily for 5 days , then 0.5 for 4 days PREDNISONE 54756701892 No Longer Active Simon Castillo MD Active PREDNISONE 20 MG ORAL TABLET 2 tabs daily for 3 days, 1 tab daily for 3 days, 1/2 tab daily for 2 days PREDNISONE 73152362789 No Longer Active Simon Castillo MD Active AZITHROMYCIN 250 MG ORAL TABLET 2 po qd x 1 day, then 1 po qd x 4 days 03/16 AZITHROMYCIN 19758753092 No Longer Active Simon Castillo MD Active CARVEDILOL 6.25 MG ORAL TABLET 1 po BID CARVEDILOL 68654775081 Active Simon Castillo MD Active LISINOPRIL-HYDROCHLOROTHIAZIDE 20-12.5 MG ORAL TABLET 1/2 tab by mouth daily LISINOPRIL-HYDROCHLOROTHIAZIDE 65677725568 No Longer Active Simon Castillo MD Active PREDNISONE 5 MG ORAL TABLET Take one po qod PREDNISONE 69596591076 No Longer Active Simon Castillo MD Active GLYBURIDE 5 MG ORAL TABLET Take one by mouth daily GLYBURIDE 12032088985 No Longer Active Simon Castillo MD Active LEVAQUIN 750 MG ORAL TABLET 1 po qod x 5 doses LEVOFLOXACIN 45682235338 No Longer Active Simon Castillo MD Active CETIRIZINE HCL 10 MG ORAL TABLET 1 po qd as needed for allergies CETIRIZINE HCL 07111567765 No Longer Active Simon Castillo MD Active ATENOLOL 50 MG ORAL TABLET Take one by mouth daily ATENOLOL 39881163161 No Longer Active Simon Castillo MD Active FLONASE 50 MCG/ACT NASAL SUSPENSION 2 puffs in each nostril daily FLUTICASONE PROPIONATE 65748967344 No Longer Active Simon Castillo MD Active GLYBURIDE 5 MG ORAL TABLET Take one by mouth daily GLYBURIDE 65140941971 No Longer Active Simon Castillo MD Active SYMBICORT 80-4.5 MCG/ACT INHALATION AEROSOL 2 puffs twice a day BUDESONIDE-FORMOTEROL FUMARATE 58819738097 No Longer Active Simon Castillo MD Active PREDNISONE 20 MG ORAL TABLET 2 tabs daily for 4 days, 1 tab daily for 4 days, 1/2 tab daily for 4 days PREDNISONE 49689683054 No Longer Active Simon Castillo MD Active AMOXICILLIN 500 MG ORAL CAPSULE 2 po BID x 10 days AMOXICILLIN 20501754631 No Longer Active Simon Castillo MD Active METFORMIN HCL 1000 MG ORAL TABLET 1 by [facility] twice a day METFORMIN HCL 95795414712 No Longer Active Simon Castillo MD Active IBUPROFEN 800 MG ORAL TABLET Take 1 tab every 6 hrs prn IBUPROFEN 67513684366 No Longer Active Simon Castillo MD Active GLYBURIDE 2.5 MG ORAL TABLET Take one by mouth daily GLYBURIDE 44314904646 No Longer Active Simon Castillo MD Active LANCETS 2 qd LANCETS 64955978515 Active Pamela Conde Active ACACIA CONTOUR TEST IN VITRO STRIP Use with testing twice daily GLUCOSE BLOOD 77779389959 Active Simon Castillo MD Active GLYBURIDE 2.5 MG ORAL TABLET Take one by mouth daily GLYBURIDE 2.5 MG ORAL TABLET 973116 GLYBURIDE Inactive PREDNISONE 20 MG ORAL TABLET 2 tabs daily for 4 days, 1 tab daily for 4 days, 1/2 tab daily for 4 days PREDNISONE 20 MG ORAL TABLET 961064 PREDNISONE Inactive SYMBICORT 80-4.5 MCG/ACT INHALATION AEROSOL 2 puffs twice a day SYMBICORT 80-4.5 MCG/ACT INHALATION AEROSOL BUDESONIDE- FORMOTEROL FUMARATE Inactive FLONASE 50 MCG/ACT NASAL SUSPENSION 2 puffs in each nostril daily FLONASE 50 MCG/ACT NASAL SUSPENSION 6533683 FLUTICASONE PROPIONATE Inactive ATENOLOL 50 MG ORAL TABLET Take one by mouth daily ATENOLOL 50 MG ORAL TABLET 720432 ATENOLOL Inactive CETIRIZINE HCL 10 MG ORAL TABLET 1 po qd as needed for allergies CETIRIZINE HCL 10 MG ORAL TABLET 6573598 CETIRIZINE HCL Inactive LEVAQUIN 750 MG ORAL TABLET 1 po qod x 5 doses LEVAQUIN 750 MG ORAL TABLET 728264 LEVOFLOXACIN Inactive GLYBURIDE 5 MG ORAL TABLET Take one by mouth daily GLYBURIDE 5 MG ORAL TABLET 937416 GLYBURIDE Inactive PREDNISONE 5 MG ORAL TABLET Take one po qod PREDNISONE 5 MG ORAL TABLET 296611 PREDNISONE Inactive PREDNISONE 20 MG ORAL TABLET 2 tabs daily for 5 days, then 1 daily for 5 days PREDNISONE 20 MG ORAL TABLET 726068 PREDNISONE Inactive FLONASE 50 MCG/ACT NASAL SUSPENSION 2 puffs in each nostril daily FLONASE 50 MCG/ACT NASAL SUSPENSION 7744038 FLUTICASONE PROPIONATE Inactive SYMBICORT 160-4.5 MCG/ACT INHALATION AEROSOL 2 puff BID SYMBICORT 160-4.5 MCG/ACT INHALATION AEROSOL BUDESONIDE-FORMOTEROL FUMARATE Inactive PREDNISONE 5 MG ORAL TABLET 1 po qod PREDNISONE 5 MG ORAL TABLET 612402 PREDNISONE Inactive PREDNISONE 20 MG ORAL TABLET 1 tablet daily for airway inflammation PREDNISONE 20 MG ORAL TABLET 294843 PREDNISONE Inactive SULFASALAZINE 500 MG ORAL TABLET DELAYED RELEASE 2 tabs BID 02/26 SULFASALAZINE 500 MG ORAL TABLET DELAYED RELEASE 825733 SULFASALAZINE Inactive LASIX 20 MG ORAL TABLET 1 tablet by mouth daily x 2 days LASIX 20 MG ORAL TABLET 854993 FUROSEMIDE Inactive CLARITIN 10 MG ORAL TABLET 1 tablet by mouth daily as needed for allergies CLARITIN 10 MG ORAL TABLET 688855 LORATADINE Inactive CLOTRIMAZOLE 1 % EXTERNAL CREAM Apply to affected area of feet twice daily PRN Rash CLOTRIMAZOLE 1 % EXTERNAL CREAM 181764 CLOTRIMAZOLE Inactive HYDROCODONE-ACETAMINOPHEN 5-325 MG ORAL TABLET 1 tab by mouth 8 hours as needed for pain HYDROCODONE-ACETAMINOPHEN 5-325 MG ORAL TABLET 620806 HYDROCODONE-ACETAMINOPHEN Inactive TRAMADOL HCL 50 MG ORAL TABLET 1-2 tablets every 6 hours as needed for pain TRAMADOL HCL 50 MG ORAL TABLET 453287 TRAMADOL HCL Inactive AMOXICILLIN 500 MG ORAL CAPSULE 2 po BID x 10 days AMOXICILLIN 500 MG ORAL CAPSULE 485017 AMOXICILLIN Inactive GLYBURIDE 5 MG ORAL TABLET Take one by mouth daily GLYBURIDE 5 MG ORAL TABLET 339939 GLYBURIDE Inactive AZITHROMYCIN 250 MG ORAL TABLET 2 po qd x 1 day, then 1 po qd x 4 days 03/16 AZITHROMYCIN 250 MG ORAL TABLET 827553 AZITHROMYCIN Inactive PREDNISONE 20 MG ORAL TABLET 2 tabs daily for 3 days, 1 tab daily for 3 days, 1/2 tab daily for 2 days PREDNISONE 20 MG ORAL TABLET 670916 PREDNISONE Inactive PREDNISONE 20 MG ORAL TABLET 2 tabs daily for 5 days, then 1 daily for 5 days , then 0.5 for 4 days PREDNISONE 20 MG ORAL TABLET 360335 PREDNISONE Inactive AZITHROMYCIN 250 MG ORAL TABLET 2 po qd x 1 day, then 1 po qd x 4 days 01/28 AZITHROMYCIN 250 MG ORAL TABLET 179713 AZITHROMYCIN Inactive PREDNISONE 20 MG ORAL TABLET 2 tabs daily for 3 days, 1 tab daily for 3 days, 1/2 tab daily for 2 days PREDNISONE 20 MG ORAL TABLET 544156 PREDNISONE Inactive TRIAMCINOLONE ACETONIDE 0.1 % EXTERNAL OINTMENT Apply to affected areas TID for up to 2 weeks TRIAMCINOLONE ACETONIDE 0.1 % EXTERNAL OINTMENT 1088883 TRIAMCINOLONE ACETONIDE Inactive AUGMENTIN 875-125 MG ORAL TABLET 1 po BID x 10 days AUGMENTIN 875-125 MG ORAL TABLET 168470 AMOXICILLIN-POT CLAVULANATE Inactive PREDNISONE 20 MG ORAL TABLET 2 po qd x 5 days PREDNISONE 20 MG ORAL TABLET 223107 PREDNISONE Inactive Immunizations Vaccine Administration Date Value [...] Peptide - Chemistry sodium, serum 142 mmol/L 032-128 9090/07/18 potassium, serum 5.0 mmol/L 3.5-5.2 chloride, serum [...] Rate - Chemistry sodium, serum 142 mmol/L 914-239 3524/02/27 carbon dioxide, venous blood 26.2 mmol/L 21.0-32.0 [...] Panel - Chemistry sodium, serum 140 mmol/L 456-332 9644/07/13 carbon dioxide, venous blood 23.7 mmol/L 21.0-32.0 [...] dipstick Negative Negative sodium, serum 142 mmol/L 465-525 0943/01/08 carbon dioxide, venous blood 23.9 mmol/L 21.0-32.0 [...] Negative;Positive Encounters Code Encounter Date Provider Facility CPT-17760 Level 3 Est. Patient 11:36:15 CDT Simon Castillo MD [facility] CPT-80864 Level 4 Est. Patient 14:06:23 REED FIXER Simon Castillo MD [facility] CPT-63267 Level 3 Est. Patient 12:04:38 REED FIXER Giles Tatum [facility] [place] CPT-76987 Level 3 Est. Patient 11:57:09 REED FIXER Giles Tatum [facility] [place] CPT-63511 Level 3 Est. Patient 11:48:57 REED FIXER Giles Tatum [facility] [place] CPT-23683 Level 4 Est. Patient 09:54:36 CDT Simon Castillo MD [facility] CPT-68984 Level 4 Est. Patient 08:48:38 CDT Simon Castillo MD [facility] CPT-09597 Level 4 Est. Patient 09:54:08 CDT Simon Castillo MD [facility] CPT-54189 Level 4 Est. Patient 16:11:23 CDT Simon Castillo MD [facility] CPT-21618 Level 4 Est. Patient 09:29:28 REED FIXER Simon Castillo MD [facility] CPT-66208 Level 3 Est. Patient 09:18:25 CDT Simon Castillo MD [facility] CPT-79527 Level 4 Est. Patient 11:51:23 CDT Simon Castillo MD [facility] CPT-56931 Level 4 Est. Patient 14:32:04 CDT Neto Oshea DO [facility] CPT-16778 Level 3 Est. Patient 08:41:43 CDT Giles Tatum [facility] [place] CPT-24820 Level 3 Est. Patient 08:40:53 CDT Giles Tatum [facility] [place] CPT-57823 Level 3 Est. Patient 08:36:52 CDT Giles Tatum [facility] [place] CPT-14929 Level 3 Est. Patient 09:08:44 CDT Giles Tatum [facility] [place] CPT-02040 Level 4 Est. Patient 09:17:32 REED FIXER Simon Castillo MD [facility] CPT-76771 Level 3 Est. Patient 11:22:22 REED FIXER Simon Castillo MD [facility] CPT-06834 Level 3 Est. Patient 09:02:14 CDT Simon Castillo MD [facility] CPT-41725 Level 4 Est. Patient 08:47:25 CDT Simon Castillo MD [facility] CPT-56055 Level 4 Est. Patient 10:17:25 CDT Simon Castillo MD [facility] CPT-14325 Level 4 Est. Patient 10:10:09 REED FIXER Simon Castillo MD [facility] CPT-13015 Level 4 Est. Patient 11:48:19 CDT Simon Castillo MD [facility] CPT-24788 Level 4 Est. Patient 08:59:29 CDT Simon Castillo MD [facility] CPT-67861 Level 4 Est. Patient 10:52:51 REED FIXER Simon Castillo MD [facility] CPT-11172 Level 4 Est. Patient 11:50:30 CDT Simon Castillo MD [facility] CPT-53800 Level 4 Est. Patient 09:54:46 CDT iSmon Castillo MD [facility] CPT-36726 Level 3 Est. Patient 11:10:14 CDT Simon Castillo MD [facility] CPT-66939 Level 4 Est. Patient 09:44:02 CDT Simon Castillo MD [facility] CPT-72861 Level 3 Est. Patient 09:27:48 CDT Simon Castillo MD [facility] CPT-26038 Level 3 Est. Patient 09:58:06 REED FIXER Simon Castillo MD [facility] CPT-97391 Level 3 Est. Patient 09:51:35 CDT Simon Castillo MD [facility] Procedures Code Procedure Name Date Entry Date Standard Description CPT-61317 EKG Trac and Interp - XRAY USE ONLY 12:19:18 REED FIXER 09/29 CPT-06528 Chest, 2 views 12:19:17 REED FIXER CPT-Cryo Cryotherapy 09:54:37 CDT CPT-55019 First Vx - Ix admin for Medicare patients 09:13:10 CDT CPT-65744 Fluzone High-Dose Intramuscular Suspension 09:13:10 CDT CPT-G0439 Subsequent Annual Wellness Exam 09:41:17 CDT CPT-39855 Lipid - LAB USE ONLY 17:15:33 CDT CPT-21422 HGBA1C - LAB USE ONLY 17:15:33 CDT CPT-17136 CMP - LAB USE ONLY 17:15:33 CDT CPT-43382 Venipuncture Draw Fee 17:15:33 CDT CPT-[facility] Transitional Care Mgmt-High 11:01:28 REED FIXER CPT-29975 First Vx - Ix admin for Medicare patients 17:33:39 CDT CPT-97454 Fluzone High-Dose Intramuscular Suspension 17:33:39 CDT CPT-G0438 Initial Annual Wellness Exam 08:57:30 CDT CPT-84076 Chest 2V Frontal and Lat - XRAY USE ONLY 09:00:14 CDT CPT-63095 Venipuncture Draw Fee 13:33:02 CDT CPT-98805 Bone Density 09:37:49 REED FIXER CPT-81353 Fluzone High Dose 17:20:42 CDT CPT-19844 Prevnar 13 17:20:42 CDT CPT-58913 Administration 2+ single or combination vaccines inc oral 17:20:42 CDT CPT-77776 Administration single or combination vaccine inc oral 17 :20:42 CDT CPT-23828 Hand comp min 3V 09:24:38 CDT CPT-14443 Venipuncture Draw Fee 08:07:29 REED FIXER CPT-24489 Venipuncture Draw Fee 09:02:51 REED FIXER CPT-84607 Venipuncture Draw Fee 12:45:08 REED FIXER CPT-01402 Venipuncture Draw Fee 09:25:31 CDT CPT-G0008 Administration of Influenza Virus Vaccine 14:41:29 CDT CPT-78269 Fluzone High-Dose Intramuscular Suspension 14:41:29 CDT CPT-Cryo Cryotherapy 11:48:20 CDT CPT-70281 EKG Trac and Interp 09:21:58 CDT CPT-74462 Chest 2V Frontal and Lat 09:21:58 CDT CPT-Cryo Cryotherapy 10:54:51 REED FIXER CPT-47231 Administration 2+ single or combination vaccines inc oral 10:42:19 CDT CPT-72070 Administration single or combination vaccine inc oral 10 :42:19 CDT CPT-38496 Pneumovax 10:42:19 CDT CPT-61393 Influenza High Dose age 65+ 10:42:19 CDT CPT-72887 Administration single or combination vaccine inc oral 13 :18:54 CDT CPT-02196 Influenza High Dose age 65+ 13:18:54 CDT CPT-95298 Venipuncture Draw Fee 11:53:16 CDT CPT-65251 LS spine comp w obliq 11:03:13 CDT CPT-Cryo Cryotherapy 08:27:16 REED FIXER CPT-74868 Administration single or combination vaccine inc oral 10 :56:34 CDT CPT-56091 Influenza High Dose age 65+ 10:56:34 CDT
--- OUTSIDE RECORDS SUMMARY | 2018-03-31 17:25 | XMS REPORT | Clinical Summary ---
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 Kerry Castillo MD Steroid use, moth exterminator ICD-V58.65 Kerry Castillo MD Hand pain, [...] MG ORAL TABS 1 po BID GLIMEPIRIDE 11113872691 Active Simon Castillo MD Active ASPIRIN EC 81 MG ORAL TBEC 1 po qd ASPIRIN 91873567382 Active Simon Castillo MD Active CLOTRIMAZOLE 1 % EXT CREA Apply to affected area of feet twice daily PRN Rash CLOTRIMAZOLE 06407065611 No Longer Active Simon Castillo MD Active PREDNISONE 5 MG TAB 1 po BID PREDNISONE 66019119345 Active Simon Castillo MD Active FISH OIL 1000 MG CPDR 1 po BID OMEGA-3 FATTY ACIDS 96598161842 Active Simon Castillo MD Active LISINOPRIL 10 MG TABS 1 p qd LISINOPRIL 47697795188 Active Simon Castillo MD Active CLARITIN 10 MG TAB 1 tablet by mouth daily as needed for allergies LORATADINE 73380556179 No Longer Active Simon Castillo MD Active TRIAMCINOLONE ACETONIDE 0.1 % OINT Apply to affected areas TID for up to 2 weeks TRIAMCINOLONE ACETONIDE 25725838773 No Longer Active Simon Castillo MD Active LASIX 20 MG TAB 1 tablet by mouth daily x 2 days FUROSEMIDE 07348615187 No Longer Active Simon Castillo MD Active SULFASALAZINE 500 MG ORAL TBEC 2 tabs BID SULFASALAZINE 93552258551 No Longer Active Neto Oshea DO Active PREDNISONE 20 MG TAB 2 tabs daily for 3 days, 1 tab daily for 3 days, 1/2 tab daily for 2 days PREDNISONE 93580633531 No Longer Active Jillina Frazell ENTRY LEVEL INSTALLATION TECHNICIAN Active PREDNISONE 20 MG TAB 1 tablet daily for airway inflammation 02/25 PREDNISONE 99712718682 No Longer Active Jillina Frazell ENTRY LEVEL INSTALLATION TECHNICIAN Active AZITHROMYCIN 250 MG TABS 2 po qd x 1 day, then 1 po qd x 4 days AZITHROMYCIN 08552055472 No Longer Active Jillina Frazell ENTRY LEVEL INSTALLATION TECHNICIAN Active HYDROCODONE-ACETAMINOPHEN 5-325 MG TABS 1 tab by mouth 8 hours as needed for pain HYDROCODONE-ACETAMINOPHEN 78503633325 Active Simon Castillo MD Active TRAMADOL HCL 50 MG TABS 1 po q6hr PRN Pain TRAMADOL HCL 52935071405 No Longer Active Simon Castillo MD Active PREDNISONE 5 MG TABS 1 po qod PREDNISONE 13986129188 No Longer Active Simon Castillo MD Active SYMBICORT 160-4.5 MCG/ACT AERO 2 puff BID BUDESONIDE- FORMOTEROL FUMARATE 67129231864 No Longer Active Simon Castillo MD Active FLONASE 50 MCG/ACT SUSP 2 puffs in each nostril daily FLUTICASONE PROPIONATE 68787157279 No Longer Active Simon Castillo MD Active PREDNISONE 20 MG TAB 2 tabs daily for 5 days, then 1 daily for 5 days PREDNISONE 83179343515 No Longer Active Simon Castillo MD Active PREDNISONE 20 MG TAB 2 tabs daily for 5 days, then 1 daily for 5 days, then 0.5 for 4 days PREDNISONE 17866621336 No Longer Active Simon Castillo MD Active PREDNISONE 20 MG TAB 2 tabs daily for 3 days, 1 tab daily for 3 days, 1/2 tab daily for 2 days PREDNISONE 79713264750 No Longer Active Simon Castillo MD Active AZITHROMYCIN 250 MG TABS 2 po qd x 1 day, then 1 po qd x 4 days AZITHROMYCIN 69644466693 No Longer Active Simon Castillo MD Active CARVEDILOL 6.25 MG TABS 1 po BID CARVEDILOL 48754296243 Active Simon Castillo MD Active LISINOPRIL-HYDROCHLOROTHIAZIDE 20-12.5 MG TABS 1/2 tab by mouth daily LISINOPRIL-HYDROCHLOROTHIAZIDE 18059970163 No Longer Active Simon Castillo MD Active TRAMADOL HCL 50 MG TABS 1-2 tablets every 6 hours as needed for pain TRAMADOL HCL 69547530402 Active Jillina Frazell ENTRY LEVEL INSTALLATION TECHNICIAN Active PREDNISONE 5 MG TAB Take one po qod PREDNISONE 87458572392 No Longer Active Simon Castillo MD Active GLYBURIDE 5 MG TAB Take one by mouth daily GLYBURIDE 74339899416 No Longer Active Simon Castillo MD Active LEVAQUIN 750 MG TABS 1 po qod x 5 doses LEVOFLOXACIN 59985238395 No Longer Active Simon Castillo MD Active CETIRIZINE HCL 10 MG TABS 1 po qd as needed for allergies CETIRIZINE HCL 77461664799 No Longer Active Simon Castillo MD Active BILBERRY CAPS 1 tab daily BILBERRY (VACCINIUM MYRTILLUS) CAPS 90929848030 Active Simon Castillo MD Active ATENOLOL 50 MG TABS Take one by mouth daily ATENOLOL 63898064618 No Longer Active Simon Castillo MD Active FLONASE 50 MCG/ACT SUSP 2 puffs in each nostril daily FLUTICASONE PROPIONATE 67082864169 No Longer Active Simon Castillo MD Active GLYBURIDE 5 MG TAB Take one by mouth daily GLYBURIDE 71630619173 No Longer Active Simon Castillo MD Active SYMBICORT 80-4.5 MCG/ACT AERO 2 puffs twice a day BUDESONIDE-FORMOTEROL FUMARATE 87945992474 No Longer Active Simon Castillo MD Active PREDNISONE 20 MG TAB 2 tabs daily for 4 days, 1 tab daily for 4 days, 1/2 tab daily for 4 days PREDNISONE 44348699178 No Longer Active Simon Castillo MD Active AMOXICILLIN 500 MG CAPS 2 po BID x 10 days AMOXICILLIN 46784176807 No Longer Active Simon Castillo MD Active METFORMIN HCL 1000 MG TABS 1 by [facility] twice a day METFORMIN HCL 29142499628 No Longer Active Simon Castillo MD Active LUTEIN-ZEAXANTHIN 6-1 MG TABS Take 2 by mouth daily LUTEIN-ZEAXANTHIN 60240942215 Active Simon Castillo MD Active IBUPROFEN 800 MG TABS Take 1 tab every 6 hrs prn IBUPROFEN 63102569773 No Longer Active Simon Castillo MD Active GLYBURIDE 2.5 MG TABS Take one by mouth daily GLYBURIDE 30513619035 No Longer Active Simon Castillo MD Active LANCETS MISC 2 qd LANCETS 66940114701 Active Pamela Conde Active ACACIA CONTOUR TEST STRP Use with testing twice daily GLUCOSE BLOOD 16570794738 Active Simon Castillo MD Active GLYBURIDE 2.5 MG TABS Take one by mouth daily GLYBURIDE 2.5 MG TABS 145399 GLYBURIDE Inactive PREDNISONE 20 MG TAB 2 tabs daily for 4 days, 1 tab daily for 4 days, 1/2 tab daily for 4 days PREDNISONE 20 MG TAB 829471 PREDNISONE Inactive SYMBICORT 80-4.5 MCG/ACT AERO 2 puffs twice a day SYMBICORT 80-4.5 MCG/ACT AERO BUDESONIDE-FORMOTEROL FUMARATE Inactive FLONASE 50 MCG/ACT SUSP 2 puffs in each nostril daily FLONASE 50 MCG/ACT SUSP FLUTICASONE PROPIONATE Inactive ATENOLOL 50 MG TABS Take one by mouth daily ATENOLOL 50 MG TABS 025661 ATENOLOL Inactive CETIRIZINE HCL 10 MG TABS 1 po qd as needed for allergies CETIRIZINE HCL 10 MG TABS 8088997 CETIRIZINE HCL Inactive LEVAQUIN 750 MG TABS 1 po qod x 5 doses LEVAQUIN 750 MG TABS 832702 LEVOFLOXACIN Inactive GLYBURIDE 5 MG TAB Take one by mouth daily GLYBURIDE 5 MG TAB 619182 GLYBURIDE Inactive PREDNISONE 5 MG TAB Take one po qod PREDNISONE 5 MG TAB 836743 PREDNISONE Inactive PREDNISONE 20 MG TAB 2 tabs daily for 5 days, then 1 daily for 5 days PREDNISONE 20 MG TAB 351268 PREDNISONE Inactive FLONASE 50 MCG/ACT SUSP 2 puffs in each nostril daily FLONASE 50 MCG/ACT SUSP FLUTICASONE PROPIONATE Inactive SYMBICORT 160-4.5 MCG/ACT AERO 2 puff BID SYMBICORT 160-4.5 MCG/ACT AERO BUDESONIDE-FORMOTEROL FUMARATE Inactive PREDNISONE 5 MG TABS 1 po qod PREDNISONE 5 MG TABS 469843 PREDNISONE Inactive PREDNISONE 20 MG TAB 1 tablet daily for airway inflammation 02/25 PREDNISONE 20 MG TAB 733104 PREDNISONE Inactive SULFASALAZINE 500 MG ORAL TBEC 2 tabs BID SULFASALAZINE 500 MG ORAL TBEC 787930 SULFASALAZINE Inactive LASIX 20 MG TAB 1 tablet by mouth daily x 2 days LASIX 20 MG TAB 796086 FUROSEMIDE Inactive CLARITIN 10 MG TAB 1 tablet by mouth daily as needed for allergies CLARITIN 10 MG TAB 658361 LORATADINE Inactive CLOTRIMAZOLE 1 % EXT CREA Apply to affected area of feet twice daily PRN Rash CLOTRIMAZOLE 1 % EXT CREA 036970 CLOTRIMAZOLE Inactive AMOXICILLIN 500 MG CAPS 2 po BID x 10 days AMOXICILLIN 500 MG CAPS 151481 AMOXICILLIN Inactive GLYBURIDE 5 MG TAB Take one by mouth daily GLYBURIDE 5 MG TAB 964860 GLYBURIDE Inactive AZITHROMYCIN 250 MG TABS 2 po qd x 1 day, then 1 po qd x 4 days AZITHROMYCIN 250 MG TABS 7963646 AZITHROMYCIN Inactive PREDNISONE 20 MG TAB 2 tabs daily for 3 days, 1 tab daily for 3 days, 1/2 tab daily for 2 days PREDNISONE 20 MG TAB 249065 PREDNISONE Inactive PREDNISONE 20 MG TAB 2 tabs daily for 5 days, then 1 daily for 5 days, then 0.5 for 4 days PREDNISONE 20 MG TAB 023988 PREDNISONE Inactive AZITHROMYCIN 250 MG TABS 2 po qd x 1 day, then 1 po qd x 4 days AZITHROMYCIN 250 MG TABS 1207692 AZITHROMYCIN Inactive PREDNISONE 20 MG TAB 2 tabs daily for 3 days, 1 tab daily for 3 days, 1/2 tab daily for 2 days PREDNISONE 20 MG TAB 518292 PREDNISONE Inactive TRIAMCINOLONE ACETONIDE 0.1 % OINT Apply to affected areas TID for up to 2 weeks TRIAMCINOLONE ACETONIDE 0.1 % OINT 0245218 TRIAMCINOLONE ACETONIDE Inactive Immunizations Vaccine Administration Date [...] Panel - Chemistry sodium, serum 137 mmol/L 311-496 3346/06/06 carbon dioxide, venous blood 24.9 mmol/L 21.0-32.0 [...] Panel - Chemistry cholesterol, serum 126 mg/dL 304-100 9743/02/07 triglyceride, serum, fasting 83 mg/dL 30-200 HDL cholesterol, serum 70 mg/dL 32-96 LDL cholesterol, serum 39 mg/dL 0-130 hemoglobin A1C, blood, as % of total hemoglobin 8.3 % 4.3-6.0 sodium, serum 141 mmol/L 128-012 9641/02/07 carbon dioxide, venous blood 26.0 mmol/L 21.0-32.0 [...] 2.6-7.2 Encounters Code Encounter Date Provider Facility CPT-24205 Level 4 Est. Patient 16:11:23 CDT Simon Castillo MD [facility] CPT-84071 Level 4 Est. Patient 09:29:28 GEAR DESIGN ENGINEER Simon Castillo MD [facility] CPT-76276 Level 3 Est. Patient 09:18:25 CDT Simon Castillo MD [facility] CPT-48482 Level 4 Est. Patient 11:51:23 CDT Simon Castillo MD [facility] CPT-75693 Level 4 Est. Patient 14:32:04 CDT Neto Oshea DO [facility] CPT-07062 Level 3 Est. Patient 08:41:43 CDT Giles Tatum [facility] CPT-62855 Level 3 Est. Patient 08:40:53 CDT Giles Tatum [facility] CPT-37445 Level 3 Est. Patient 08:36:52 CDT Giles Salcidol [facility] CPT-80279 Level 3 Est. Patient 09:08:44 CDT Giles Salcidol [facility] CPT-33208 Level 4 Est. Patient 09:17:32 GEAR DESIGN ENGINEER Simon Castillo MD [facility] CPT-35399 Level 3 Est. Patient 11:22:22 GEAR DESIGN ENGINEER Simon Castillo MD [facility] CPT-07546 Level 3 Est. Patient 09:02:14 CDT Simon Castillo MD [facility] CPT-04973 Level 4 Est. Patient 08:47:25 CDT Simon Castillo MD [facility] CPT-92090 Level 4 Est. Patient 10:17:25 CDT Simon Castillo MD [facility] CPT-49085 Level 4 Est. Patient 10:10:09 GEAR DESIGN ENGINEER Simon Castillo MD [facility] CPT-58887 Level 4 Est. Patient 11:48:19 CDT Simon Castillo MD [facility] CPT-69410 Level 4 Est. Patient 08:59:29 CDT Simon Castillo MD [facility] CPT-19383 Level 4 Est. Patient 10:52:51 GEAR DESIGN ENGINEER Simon Castillo MD [facility] CPT-91964 Level 4 Est. Patient 11:50:30 CDT Simon Castillo MD [facility] CPT-15162 Level 4 Est. Patient 09:54:46 CDT Simon Castillo MD [facility] CPT-11707 Level 3 Est. Patient 11:10:14 CDT Simon Castillo MD [facility] CPT-56250 Level 4 Est. Patient 09:44:02 CDT Simon Castillo MD [facility] CPT-62509 Level 3 Est. Patient 09:27:48 CDT Simon Castillo MD [facility] CPT-61626 Level 3 Est. Patient 09:58:06 GEAR DESIGN ENGINEER Simon Castillo MD [facility] CPT-78936 Level 3 Est. Patient 09:51:35 CDT Simon Castillo MD [facility] Procedures Code Procedure Name Date Entry Date Standard Description CPT-45703 Lipid - LAB USE ONLY 17:15:33 CDT CPT-96518 HGBA1C - LAB USE ONLY 17:15:33 CDT CPT-19437 CMP - LAB USE ONLY 17:15:33 CDT CPT-35948 Venipuncture Draw Fee 17:15:33 CDT CPT-[facility] Transitional Care Mgmt-High 11:01:28 GEAR DESIGN ENGINEER CPT-24932 First Vx - Ix admin for Medicare patients 17:33:39 CDT CPT-51762 Fluzone High-Dose Intramuscular Suspension 17:33:39 CDT CPT-G0438 Initial Annual Wellness Exam 08:57:30 CDT CPT-30962 Chest 2V Frontal and Lat - XRAY USE ONLY 09:00:14 CDT CPT-48435 Venipuncture Draw Fee 13:33:02 CDT CPT-52629 Bone Density 09:37:49 GEAR DESIGN ENGINEER CPT-04129 Fluzone High Dose 17:20:42 CDT CPT-06214 Prevnar 13 17:20:42 CDT CPT-68477 Administration 2+ single or combination vaccines inc oral 17:20:42 CDT CPT-15413 Administration single or combination vaccine inc oral 17 :20:42 CDT CPT-32788 Hand comp min 3V 09:24:38 CDT CPT-51027 Venipuncture Draw Fee 08:07:29 GEAR DESIGN ENGINEER CPT-67445 Venipuncture Draw Fee 09:02:51 GEAR DESIGN ENGINEER CPT-84703 Venipuncture Draw Fee 12:45:08 GEAR DESIGN ENGINEER CPT-20482 Venipuncture Draw Fee 09:25:31 CDT CPT-G0008 Administration of Influenza Virus Vaccine 14:41:29 CDT CPT-40769 Fluzone High-Dose Intramuscular Suspension 14:41:29 CDT CPT-Cryo Cryotherapy 11:48:20 CDT CPT-19907 EKG Trac and Interp 09:21:58 CDT CPT-87039 Chest 2V Frontal and Lat 09:21:58 CDT CPT-Cryo Cryotherapy 10:54:51 GEAR DESIGN ENGINEER CPT-24007 Administration 2+ single or combination vaccines inc oral 10:42:19 CDT CPT-70649 Administration single or combination vaccine inc oral 10 :42:19 CDT CPT-92022 Pneumovax 10:42:19 CDT CPT-08137 Influenza High Dose age 65+ 10:42:19 CDT CPT-71351 Administration single or combination vaccine inc oral 13 :18:54 CDT CPT-40392 Influenza High Dose age 65+ 13:18:54 CDT CPT-35831 Venipuncture Draw Fee 11:53:16 CDT CPT-40688 LS spine comp w obliq 11:03:13 CDT CPT-Cryo Cryotherapy 08:27:16 GEAR DESIGN ENGINEER CPT-26003 Administration single or combination vaccine inc oral 10 :56:34 CDT CPT-26995 Influenza High Dose age 65+ 10:56:34 CDT
--- OUTSIDE RECORDS SUMMARY | 2018-03-31 17:25 | XMS REPORT | Clinical Summary ---
Author Author Admin, RAFFI Organization [facility] Address Unknown Phone Unavailable Allergies, Adverse Reactions, Alerts Allergy Name Reaction Description Start Date Severity Status Provider No Known Allergies [facility] Conditions or Problems Problem Name Problem [...] AERO 2 puff BID BUDESONIDE- FORMOTEROL FUMARATE 75465041832 Active Simon Castillo MD Active PREDNISONE 20 MG TAB 2 tabs daily for 3 days, 1 tab daily for 3 days, 1/2 tab daily for 2 days PREDNISONE 62997133276 No Longer Active Simon Castillo MD Active AZITHROMYCIN 250 MG TABS 2 po qd x 1 day, then 1 po qd x 4 days AZITHROMYCIN 27397533578 No Longer Active Simon Castillo MD Active LISINOPRIL 10 MG TABS 1 tablet by mouth daily LISINOPRIL 60379959883 Active Simon Castillo MD Active GLIMEPIRIDE 1 MG TABS 1 po q a.m. GLIMEPIRIDE 27872765884 Active Simon Castillo MD Active CARVEDILOL 6.25 MG TABS 1 po BID CARVEDILOL 95089039795 Active Simon Castillo MD Active LISINOPRIL-HYDROCHLOROTHIAZIDE 20-12.5 MG TABS 1/2 tab by mouth daily LISINOPRIL-HYDROCHLOROTHIAZIDE 29781646769 No Longer Active Simon Castillo MD Active PREDNISONE 5 MG TABS 1 po qod PREDNISONE 86874240032 Active Simon Castillo MD Active TRAMADOL HCL 50 MG TABS 1-2 tablets every 6 hours as needed for pain TRAMADOL HCL 37348015248 Active Simon Castillo MD Active PREDNISONE 5 MG TAB Take one po qod PREDNISONE 10284077006 No Longer Active Simon Castillo MD Active GLYBURIDE 5 MG TAB Take one by mouth daily GLYBURIDE 23692031600 No Longer Active Simon Castillo MD Active LEVAQUIN 750 MG TABS 1 po qod x 5 doses LEVOFLOXACIN 03932658092 No Longer Active Simon Castillo MD Active CETIRIZINE HCL 10 MG TABS 1 po qd as needed for allergies CETIRIZINE HCL 01418687448 No Longer Active Simon Castillo MD Active FISH OIL 1000 MG CPDR 1 pill by mouth twice daily for cholesterol OMEGA -3 FATTY ACIDS 87639829378 Active Simon Castillo MD Active BILBERRY CAPS 1 tab daily BILBERRY (VACCINIUM MYRTILLUS) CAPS 41281673687 Active Simon Castillo MD Active ATENOLOL 50 MG TABS Take one by mouth daily ATENOLOL 66662369829 No Longer Active Simon Castillo MD Active FLONASE 50 MCG/ACT SUSP 2 puffs in each nostril daily FLUTICASONE PROPIONATE 16272219644 No Longer Active Simon Castillo MD Active GLYBURIDE 5 MG TAB Take one by mouth daily GLYBURIDE 06943457009 No Longer Active Simon Castillo MD Active SYMBICORT 80-4.5 MCG/ACT AERO 2 puffs twice a day BUDESONIDE-FORMOTEROL FUMARATE 46337216400 No Longer Active Simon Castillo MD Active PREDNISONE 20 MG TAB 2 tabs daily for 4 days, 1 tab daily for 4 days, 1/2 tab daily for 4 days PREDNISONE 31651504118 No Longer Active Simon Castillo MD Active AMOXICILLIN 500 MG CAPS 2 po BID x 10 days AMOXICILLIN 98323408005 No Longer Active Simon Castillo MD Active METFORMIN HCL 1000 MG TABS 1 by mounth twice a day METFORMIN HCL 35704323881 No Longer Active Simon Castillo MD Active LUTEIN-ZEAXANTHIN 6-1 MG TABS Take 2 by mouth daily LUTEIN-ZEAXANTHIN 48912993169 Active Simon Castillo MD Active IBUPROFEN 800 MG TABS Take 1 tab every 6 hrs prn IBUPROFEN 77009331312 No Longer Active Simon Castillo MD Active GLYBURIDE 2.5 MG TABS Take one by mouth daily GLYBURIDE 09320053715 No Longer Active Simon Castillo MD Active LANCETS MISC 2 qd LANCETS 86034431885 Active Pamela Conde Active ACACIA CONTOUR TEST STRP Use with testing twice daily GLUCOSE BLOOD 78585465392 Active Pamela Conde Active ACACIA ASPIRIN 325 MG TABS Take one by mouth daily ASPIRIN 47774984781 Active Pamela Conde Active GLYBURIDE 2.5 MG TABS Take one by mouth daily GLYBURIDE 2.5 MG TABS 162163 GLYBURIDE Inactive PREDNISONE 20 MG TAB 2 tabs daily for 4 days, 1 tab daily for 4 days, 1/2 tab daily for 4 days PREDNISONE 20 MG TAB 055900 PREDNISONE Inactive SYMBICORT 80-4.5 MCG/ACT AERO 2 puffs twice a day SYMBICORT 80-4.5 MCG/ACT AERO BUDESONIDE-FORMOTEROL FUMARATE Inactive FLONASE 50 MCG/ACT SUSP 2 puffs in each nostril daily FLONASE 50 MCG/ACT SUSP 577327 FLUTICASONE PROPIONATE Inactive ATENOLOL 50 MG TABS Take one by mouth daily ATENOLOL 50 MG TABS 783391 ATENOLOL Inactive CETIRIZINE HCL 10 MG TABS 1 po qd as needed for allergies CETIRIZINE HCL 10 MG TABS 3611172 CETIRIZINE HCL Inactive LEVAQUIN 750 MG TABS 1 po qod x 5 doses LEVAQUIN 750 MG TABS 850341 LEVOFLOXACIN Inactive GLYBURIDE 5 MG TAB Take one by mouth daily GLYBURIDE 5 MG TAB 737018 GLYBURIDE Inactive PREDNISONE 5 MG TAB Take one po qod PREDNISONE 5 MG TAB 665662 PREDNISONE Inactive AMOXICILLIN 500 MG CAPS 2 po BID x 10 days AMOXICILLIN 500 MG CAPS 764599 AMOXICILLIN Inactive GLYBURIDE 5 MG TAB Take one by mouth daily GLYBURIDE 5 MG TAB 227062 GLYBURIDE Inactive AZITHROMYCIN 250 MG TABS 2 po qd x 1 day, then 1 po qd x 4 days AZITHROMYCIN 250 MG TABS 6451172 AZITHROMYCIN Inactive PREDNISONE 20 MG TAB 2 tabs daily for 3 days, 1 tab daily for 3 days, 1/2 tab daily for 2 days PREDNISONE 20 MG TAB 535376 PREDNISONE Inactive Immunizations Vaccine Administration Date Value [...] Basic Metabolic Panel - Chemistry sodium, serum 140 mmol/L 022-517 1922/07/10 potassium, serum 5.3 mmol/L 3.5-5.2 chloride, serum 105 mmol/L 98-107 carbon dioxide, venous blood 25.5 mmol/L 21.0-32.0 blood glucose 119 mg/dL 65-110 calcium, serum 8.9 mg/dL 8.5-10.1 urea nitrogen, blood 44 mg/dL 7-18 creatinine, serum 2.50 mg/dL 0.60-1.30 Lab Report: CBC, Renal Panel - Chemistry sodium, serum 137 mmol/L 399-426 9372/10/14 potassium, serum 5.6 mmol/L 3.5-5.2 chloride, serum 103 mmol/L 98-107 carbon dioxide, venous blood 24.9 mmol/L 21.0-32.0 blood glucose 200 mg/dL 65-110 urea nitrogen, blood 43 mg/dL 7-18 creatinine, serum 2.60 mg/dL 0.60-1.30 calcium, serum 9.1 mg/dL 8.5-10.1 sodium, serum 139 mmol/L 979-696 4783/11/13 potassium, serum 5.8 mmol/L 3.5-5.2 chloride, serum 105 mmol/L 98-107 carbon dioxide, venous blood 22.2 mmol/L 21.0-32.0 blood glucose 156 mg/dL 65-110 urea nitrogen, blood 49 mg/dL 7-18 creatinine, serum 2.30 mg/dL 0.60-1.30 calcium, serum 9.2 mg/dL 8.5-10.1 sodium, serum 140 mmol/L 930-571 8540/12/12 potassium, serum 5.5 mmol/L 3.5-5.2 chloride, serum [...] % 11.6-14.8 platelet count 217 10^3/MM^3 10*3/mm3 566-034 1617/10/14 leukocyte count, blood 9.2 10^3/MM^3 10*3/mm3 4.6-10.2 erythrocyte (RBC) count 4.67 10^6/MM^3 10*6/mm3 4.69-6.13 hemoglobin, blood 13.9 g/dL 13.5-17.5 hematocrit, blood 42.4 % 41.0-53.0 mean corpuscular volume, RBC 91 fL 80-97 mean corpuscular hemoglobin, RBC 29.7 pg 27.0-31.2 mean corpuscular hemoglobin concentration, RBC 32.8 G/DL % 31.8- 35.4 red blood cell distribution width 14.7 % 11.6-14.8 platelet count 214 10^3/MM^3 10*3/mm3 017-501 3283/11/13 leukocyte count, blood 9.7 10^3/MM^3 10*3/mm3 4.6-10.2 [...] HGBA1C - Chemistry sodium, serum 139 mmol/L 787-773 1900/07/09 potassium, serum 5.4 mmol/L 3.5-5.2 chloride, serum [...] 6.9 % 4.3-6.0 sodium, serum 137 mmol/L 400-351 9473/08/21 potassium, serum 5.3 mmol/L 3.5-5.2 chloride, serum 104 mmol/L 98-107 carbon dioxide, venous blood 20.4 mmol/L 21.0-32.0 blood glucose 173 mg/dL 65-110 calcium, serum 8.7 mg/dL 8.5-10.1 urea nitrogen, blood 46 mg/dL 7-18 creatinine, serum 2.60 mg/dL 0.60-1.30 Lab Report: Prostatic Specific Ag - Chemistry prostate specific antigen 1.52 ng/mL 0.00-4.00 Lab Report: Renal Panel - Chemistry sodium, serum 139 mmol/L 398-346 0223/10/21 potassium, serum 4.7 mmol/L 3.5-5.2 chloride, serum 104 mmol/L 98-107 carbon dioxide, venous blood 26.1 mmol/L 21.0-32.0 blood glucose 148 mg/dL 65-110 urea nitrogen, blood 38 mg/dL 7-18 creatinine, serum 2.60 mg/dL 0.60-1.30 calcium, serum 8.6 mg/dL 8.5-10.1 sodium, serum 140 mmol/L 777-633 3606/11/17 potassium, serum 5.0 mmol/L 3.5-5.2 chloride, serum 104 mmol/L 98-107 carbon dioxide, venous blood 24.8 mmol/L 21.0-32.0 blood glucose 146 mg/dL 65-110 urea nitrogen, blood 46 mg/dL 7-18 creatinine, serum 2.60 mg/dL 0.60-1.30 calcium, serum 9.2 mg/dL 8.5-10.1 Office Visit: 1 month F/U 302 - Chemistry cholesterol, target level 200 mg/dL triglyceride, target level 200 mg/dL HDL cholesterol, serum, target level 35 mg/dL LDL target level 100 mg/dL Encounters Code Encounter Date Provider Facility CPT-26980 Level 4 Est. Patient 10:17:25 CDT Simon Castillo MD [facility] CPT-76304 Level 4 Est. Patient 10:10:09 [employer]ESS[employer] Simon Castillo MD [facility] CPT-96942 Level 4 Est. Patient 11:48:19 CDT Simon Castillo MD [facility] CPT-59262 Level 4 Est. Patient 08:59:29 CDT Simon Castillo MD [facility] CPT-60380 Level 4 Est. Patient 10:52:51 [employer] CHEMI[employer] PROFESSOR Simon Castillo MD [facility] CPT-20081 Level 4 Est. Patient 11:50:30 CDT Simon Castillo MD [facility] CPT-43813 Level 4 Est. Patient 09:54:46 CDT Simon Castillo MD [facility] CPT-24596 Level 3 Est. Patient 11:10:14 CDT Simon Castillo MD [facility] CPT-23330 Level 4 Est. Patient 09:44:02 CDT Simon Castillo MD [facility] CPT-70223 Level 3 Est. Patient 09:27:48 CDT Simon Castillo MD [facility] CPT-21362 Level 3 Est. Patient 09:58:06 [employer] CHEMI[employer] PROFESSOR Simon Castillo MD [facility] CPT-69577 Level 3 Est. Patient 09:51:35 CDT Simon Castillo MD [facility] Procedures Code Procedure Name Date Entry Date Standard Description CPT-83494 Venipuncture Draw Fee 08:07:29 [employer]IC CHEMI[employer]Y PROFESSOR CPT-95576 Venipuncture Draw Fee 09:02:51 [employer]IC CHEMI[employer]Y PROFESSOR CPT-38975 Venipuncture Draw Fee 12:45:08 [employer]IC CHEMI[employer]Y PROFESSOR CPT-80905 Venipuncture Draw Fee 09:25:31 CDT CPT-G0008 Administration of Influenza Virus Vaccine 14:41:29 CDT CPT-20847 Fluzone High-Dose Intramuscular Suspension 14:41:29 CDT CPT-Cryo Cryotherapy 11:48:20 CDT CPT-99434 EKG Trac and Interp 09:21:58 CDT CPT-63515 Chest 2V Frontal and Lat 09:21:58 CDT CPT-Cryo Cryotherapy 10:54:51 [employer]MI[employer] PROFESSOR CPT-11850 Administration 2+ single or combination vaccines inc oral 10:42:19 CDT CPT-76494 Administration single or combination vaccine inc oral 10 :42:19 CDT CPT-03692 Pneumovax 10:42:19 CDT CPT-04877 Influenza High Dose age 65+ 10:42:19 CDT CPT-28929 Administration single or combination vaccine inc oral 13 :18:54 CDT CPT-28561 Influenza High Dose age 65+ 13:18:54 CDT CPT-67900 Venipuncture Draw Fee 11:53:16 CDT CPT-48141 LS spine comp w obliq 11:03:13 CDT CPT-Cryo Cryotherapy 08:27:16 [employer]IC CHEMI[employer]Y PROFESSOR CPT-40887 Administration single or combination vaccine inc oral 10 :56:34 CDT CPT-77535 Influenza High Dose age 65+ 10:56:34 CDT
--- OUTSIDE RECORDS SUMMARY | 2018-03-31 17:26 | XMS REPORT | Clinical Summary ---
Author Author Admin, E Organization [facility] Address Unknown Phone Unavailable Allergies, Adverse Reactions, Alerts Allergy Name Reaction Description Start Date Severity Status Provider No Known Allergies [facility] Conditions or Problems Problem Name Problem Code [...] Simon Castillo MD Rheumatoid arthritis Steroid use, policy checker V58.65 Resolved Simon Castillo MD Long-term (current) [...] Rheumatoid arthritis Pharyngitis 462 Active Jillina Frazell [employer] Acute pharyngitis Dyspnea 786.09 Active Jillina Frazell [employer] Other dyspnea and respiratory abnormality Peripheral edema 782.3 Active Jillina Frazell [employer] Edema 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 Simon Castillo MD Other specified erythematous conditions FH DIABETES ICD-V18.0 Inactive Simon Castillo MD FH LUNG CANCER ICD-V16.1 Inactive Simon Castillo MD SEBORRHEIC KERATOSIS ICD-702.19 Inactive Simon Castillo MD BRONCHITIS, ACUTE ICD-466.0 Inactive Simon Castillo MD SINUSITIS, ACUTE ICD-461.9 Inactive Simon Castillo MD ABDOMINAL TENDERNESS ICD-789.60 Inactive Simon Castillo MD CHEST WALL PAIN, HX OF ICD-V15.89 Inactive Simon Castillo MD ABDOMINAL PAIN RIGHT LOWER QUADRANT ICD-789.03 Inactive Simon Catsillo MD Obesity ICD-278.00 Inactive Simon Castillo MD 2013 Chest pain ICD-786.50 Inactive Simon Castillo MD Cough ICD-786.2 Inactive Simon Castillo MD Bronchitis, acute ICD-466.0 Inactive Simon Castillo MD SCIATICA ICD-724.3 Inactive Simon Castillo MD 2012 BENIGN PROSTATIC HYPERTROPHY, MILD, HX OF ICD-V13.89 Inactive Simon Castillo MD Hand pain, bilateral ICD-729.5 Inactive Simon Castillo MD Tinea pedis ICD-110.4 Inactive Simon Castillo MD Steroid use, policy checker ICD-V58.65 Inactive Simon Castillo MD Hand pain, bilateral ICD-729.5 Inactive Simon Castillo MD Medication List Medication Instructions Start Date Stop Date Generic Name NDC Status Provider Patient Instruction TRIAMCINOLONE ACETONIDE 0.1 % OINT Apply to affected areas TID for up to 2 weeks TRIAMCINOLONE ACETONIDE 87882602524 No Longer Active Simon Castillo MD Active LASIX 20 MG TAB 1 tablet by mouth daily x 2 days FUROSEMIDE 93357522002 No Longer Active Simon Castillo MD Active SULFASALAZINE 500 MG ORAL TBEC 2 tabs BID SULFASALAZINE 80479178265 No Longer Active Neto Oshea DO Active PREDNISONE 20 MG TAB 2 tabs daily for 3 days, 1 tab daily for 3 days, 1/2 tab daily for 2 days PREDNISONE 99711289406 No Longer Active Jillina Frazelalejandrina HEMPHILL Active PREDNISONE 20 MG TAB 1 tablet daily for airway inflammation 02/25 PREDNISONE 85439677937 No Longer Active Jillina Frazell [employer] Active CLARITIN 10 MG TAB 1 tablet by mouth daily as needed for allergies LORATADINE 98643838174 Active Jillina Lolyl [employer] Active AZITHROMYCIN 250 MG TABS 2 po qd x 1 day, then 1 po qd x 4 days AZITHROMYCIN 31013795110 No Longer Active Jillina Frazell [employer] Active GLIMEPIRIDE 2 MG ORAL TABS 1 po q a.m. GLIMEPIRIDE 56125423598 Active Simon Castillo MD Active HYDROCODONE-ACETAMINOPHEN 5-325 MG TABS 1 tab by mouth 8 hours as needed for pain HYDROCODONE-ACETAMINOPHEN 99441185856 Active Simon Castillo MD Active TRAMADOL HCL 50 MG TABS 1 po q6hr PRN Pain TRAMADOL HCL 23551577061 No Longer Active Simon Castillo MD Active PREDNISONE 5 MG TAB 1-2 tabs daily for rheumatoid arthritis PREDNISONE 32284589188 Active Simon Castillo MD Active PREDNISONE 5 MG TABS 1 po qod PREDNISONE 96340225679 No Longer Active Simon Castillo MD Active SYMBICORT 160-4.5 MCG/ACT AERO 2 puff BID BUDESONIDE- FORMOTEROL FUMARATE 47621031996 No Longer Active Simon Castillo MD Active FLONASE 50 MCG/ACT SUSP 2 puffs in each nostril daily FLUTICASONE PROPIONATE 07993465583 No Longer Active Simon Castillo MD Active PREDNISONE 20 MG TAB 2 tabs daily for 5 days, then 1 daily for 5 days PREDNISONE 19734618801 No Longer Active Simon Castillo MD Active PREDNISONE 20 MG TAB 2 tabs daily for 5 days, then 1 daily for 5 days, then 0.5 for 4 days PREDNISONE 63367483280 No Longer Active Simon Castillo MD Active CLOTRIMAZOLE 1 % EXT CREA Apply to affected area of feet twice daily PRN Rash CLOTRIMAZOLE 24597707806 Active Simon Castillo MD Active PREDNISONE 20 MG TAB 2 tabs daily for 3 days, 1 tab daily for 3 days, 1/2 tab daily for 2 days PREDNISONE 63713952156 No Longer Active Simon Castillo MD Active AZITHROMYCIN 250 MG TABS 2 po qd x 1 day, then 1 po qd x 4 days AZITHROMYCIN 58444359228 No Longer Active Simon Castillo MD Active LISINOPRIL 10 MG TABS 1 tablet by mouth daily LISINOPRIL 70685060907 Active Simon Castillo MD Active CARVEDILOL 6.25 MG TABS 1 po BID CARVEDILOL 05550736512 Active Simon Castillo MD Active LISINOPRIL-HYDROCHLOROTHIAZIDE 20-12.5 MG TABS 1/2 tab by mouth daily LISINOPRIL-HYDROCHLOROTHIAZIDE 98479135097 No Longer Active Simon Castillo MD Active TRAMADOL HCL 50 MG TABS 1-2 tablets every 6 hours as needed for pain TRAMADOL HCL 93651462401 Active Giles Tatum APRN Active PREDNISONE 5 MG TAB Take one po qod PREDNISONE 64257518339 No Longer Active Simon Castillo MD Active GLYBURIDE 5 MG TAB Take one by mouth daily GLYBURIDE 88457215872 No Longer Active Simon Castillo MD Active LEVAQUIN 750 MG TABS 1 po qod x 5 doses LEVOFLOXACIN 93302123382 No Longer Active Simon Castillo MD Active CETIRIZINE HCL 10 MG TABS 1 po qd as needed for allergies CETIRIZINE HCL 71991706302 No Longer Active Simon Castillo MD Active FISH OIL 1000 MG CPDR 1 pill by mouth twice daily for cholesterol OMEGA -3 FATTY ACIDS 65365782370 Active Simon Castillo MD Active BILBERRY CAPS 1 tab daily BILBERRY (VACCINIUM MYRTILLUS) CAPS 47587393404 Active Simon Castillo MD Active ATENOLOL 50 MG TABS Take one by mouth daily ATENOLOL 16560016403 No Longer Active Simon Castillo MD Active FLONASE 50 MCG/ACT SUSP 2 puffs in each nostril daily FLUTICASONE PROPIONATE 87892315199 No Longer Active Simon Castillo MD Active GLYBURIDE 5 MG TAB Take one by mouth daily GLYBURIDE 29037914151 No Longer Active Simon Castillo MD Active SYMBICORT 80-4.5 MCG/ACT AERO 2 puffs twice a day BUDESONIDE-FORMOTEROL FUMARATE 34454980762 No Longer Active Simon Castillo MD Active PREDNISONE 20 MG TAB 2 tabs daily for 4 days, 1 tab daily for 4 days, 1/2 tab daily for 4 days PREDNISONE 91962823749 No Longer Active Simon Castillo MD Active AMOXICILLIN 500 MG CAPS 2 po BID x 10 days AMOXICILLIN 05545709055 No Longer Active Simon Castillo MD Active METFORMIN HCL 1000 MG TABS 1 by mounth twice a day METFORMIN HCL 08145842504 No Longer Active Simon Castillo MD Active LUTEIN-ZEAXANTHIN 6-1 MG TABS Take 2 by mouth daily LUTEIN-ZEAXANTHIN 54926069676 Active Simon Castillo MD Active IBUPROFEN 800 MG TABS Take 1 tab every 6 hrs prn IBUPROFEN 08343188100 No Longer Active Simon Castillo MD Active GLYBURIDE 2.5 MG TABS Take one by mouth daily GLYBURIDE 38879890060 No Longer Active Simon Castillo MD Active LANCETS MISC 2 qd LANCETS 20999855857 Active Pamela Conde Active ACACIA CONTOUR TEST STRP Use with testing twice daily GLUCOSE BLOOD 41933772909 Active Simon Castillo MD Active ACACIA ASPIRIN 325 MG TABS Take one by mouth daily ASPIRIN 74671494969 Active Pamela Conde Active GLYBURIDE 2.5 MG TABS Take one by mouth daily GLYBURIDE 2.5 MG TABS 085518 GLYBURIDE Inactive PREDNISONE 20 MG TAB 2 tabs daily for 4 days, 1 tab daily for 4 days, 1/2 tab daily for 4 days PREDNISONE 20 MG TAB 340420 PREDNISONE Inactive SYMBICORT 80-4.5 MCG/ACT AERO 2 puffs twice a day SYMBICORT 80-4.5 MCG/ACT AERO BUDESONIDE-FORMOTEROL FUMARATE Inactive FLONASE 50 MCG/ACT SUSP 2 puffs in each nostril daily FLONASE 50 MCG/ACT SUSP FLUTICASONE PROPIONATE Inactive ATENOLOL 50 MG TABS Take one by mouth daily ATENOLOL 50 MG TABS 598415 ATENOLOL Inactive CETIRIZINE HCL 10 MG TABS 1 po qd as needed for allergies CETIRIZINE HCL 10 MG TABS 2610710 CETIRIZINE HCL Inactive LEVAQUIN 750 MG TABS 1 po qod x 5 doses LEVAQUIN 750 MG TABS 195208 LEVOFLOXACIN Inactive GLYBURIDE 5 MG TAB Take one by mouth daily GLYBURIDE 5 MG TAB 076345 GLYBURIDE Inactive PREDNISONE 5 MG TAB Take one po qod PREDNISONE 5 MG TAB 539882 PREDNISONE Inactive PREDNISONE 20 MG TAB 2 tabs daily for 5 days, then 1 daily for 5 days PREDNISONE 20 MG TAB 290751 PREDNISONE Inactive FLONASE 50 MCG/ACT SUSP 2 puffs in each nostril daily FLONASE 50 MCG/ACT SUSP FLUTICASONE PROPIONATE Inactive SYMBICORT 160-4.5 MCG/ACT AERO 2 puff BID SYMBICORT 160-4.5 MCG/ACT AERO BUDESONIDE-FORMOTEROL FUMARATE Inactive PREDNISONE 5 MG TABS 1 po qod PREDNISONE 5 MG TABS 822099 PREDNISONE Inactive PREDNISONE 20 MG TAB 1 tablet daily for airway inflammation 02/25 PREDNISONE 20 MG TAB 669116 PREDNISONE Inactive SULFASALAZINE 500 MG ORAL TBEC 2 tabs BID SULFASALAZINE 500 MG ORAL TBEC 178537 SULFASALAZINE Inactive LASIX 20 MG TAB 1 tablet by mouth daily x 2 days LASIX 20 MG TAB 146912 FUROSEMIDE Inactive AMOXICILLIN 500 MG CAPS 2 po BID x 10 days AMOXICILLIN 500 MG CAPS 166247 AMOXICILLIN Inactive GLYBURIDE 5 MG TAB Take one by mouth daily GLYBURIDE 5 MG TAB 533099 GLYBURIDE Inactive AZITHROMYCIN 250 MG TABS 2 po qd x 1 day, then 1 po qd x 4 days AZITHROMYCIN 250 MG TABS 4375280 AZITHROMYCIN Inactive PREDNISONE 20 MG TAB 2 tabs daily for 3 days, 1 tab daily for 3 days, 1/2 tab daily for 2 days PREDNISONE 20 MG TAB 835863 PREDNISONE Inactive PREDNISONE 20 MG TAB 2 tabs daily for 5 days, then 1 daily for 5 days, then 0.5 for 4 days PREDNISONE 20 MG TAB 107668 PREDNISONE Inactive AZITHROMYCIN 250 MG TABS 2 po qd x 1 day, then 1 po qd x 4 days AZITHROMYCIN 250 MG TABS 2423047 AZITHROMYCIN Inactive PREDNISONE 20 MG TAB 2 tabs daily for 3 days, 1 tab daily for 3 days, 1/2 tab daily for 2 days PREDNISONE 20 MG TAB 402430 PREDNISONE Inactive TRIAMCINOLONE ACETONIDE 0.1 % OINT Apply to affected areas TID for up to 2 weeks TRIAMCINOLONE ACETONIDE 0.1 % OINT 6896420 TRIAMCINOLONE ACETONIDE Inactive Immunizations Vaccine Administration Date [...] - Hematology hemoglobin, blood 12.9 g/dL 13.5-17.5 hematocrit, blood 39.6 % 41.0-53.0 mean corpuscular volume, RBC 93 fL 80-97 mean corpuscular hemoglobin, RBC 30.3 pg 27.0-31.2 mean corpuscular hemoglobin concentration, RBC 32.5 G/DL % 31.8- 35.4 red blood cell distribution width 14.8 % 11.6-14.8 platelet count 248 10^3/MM^3 10*3/mm3 568-748 1244/09/18 leukocyte count, blood 11.1 10^3/MM^3 10*3/mm3 4.6-10.2 neutrophils as percent of blood leukocytes 75.7 % 42.2-75.2 monocytes as percent of blood leukocytes 7.2 % 1.7-9.3 lymphocytes as percent of blood leukocytes 13.3 % 20.5-51.1 erythrocyte (RBC) count 4.25 10^6/MM^3 10*6/mm3 4.69-6.13 Lab Report: CBC W/DIFF, Comp. Metabolic Panel - Chemistry sodium, serum 132 mmol/L 400-168 6353/10/26 carbon dioxide, venous blood 22.8 mmol/L 21.0-32.0 potassium, serum 5.4 mmol/L 3.5-5.2 chloride, serum 98 mmol/L 98-107 blood glucose 424 mg/dL 65-110 urea nitrogen, blood 40 mg/dL 7-18 creatinine, serum 2.26 mg/dL 0.55-1.30 alanine aminotransferase (SGPT), serum 29 U/L 12-78 aspartate aminotransferase (SGOT), serum 24 U/L 15-37 calcium, serum 8.6 mg/dL 8.5-10.1 bilirubin, serum, total 0.60 mg/dL 0.00-1.00 sodium, serum 137 mmol/L 888-867 2398/06/06 carbon dioxide, venous blood 24.9 mmol/L 21.0-32.0 [...] Hematology neutrophils as percent of blood leukocytes 62.2 % 42.2-75.2 monocytes as percent of blood leukocytes 11.1 % 1.7-9.3 lymphocytes as percent of blood leukocytes 21.5 % 20.5-51.1 erythrocyte (RBC) count 4.35 10^6/MM^3 10*6/mm3 4.69-6.13 hemoglobin, blood 13.4 g/dL 13.5-17.5 monocytes as percent of blood leukocytes 5.6 % 1.7-9.3 lymphocytes as percent of blood leukocytes 11.8 % 20.5-51.1 erythrocyte (RBC) count 4.11 10^6/MM^3 10*6/mm3 4.69-6.13 hemoglobin, blood 12.4 g/dL 13.5-17.5 leukocyte count, blood 10.3 10^3/MM^3 10*3/mm3 4.6-10.2 neutrophils as percent of blood leukocytes 80.0 % 42.2-75.2 hematocrit, blood 37.7 % 41.0-53.0 mean corpuscular volume, RBC 92 fL 80-97 mean corpuscular hemoglobin, RBC 30.2 pg 27.0-31.2 mean corpuscular hemoglobin concentration, RBC 33.0 G/DL % 31.8- 35.4 red blood cell distribution width 14.4 % 11.6-14.8 platelet count 274 10^3/MM^3 10*3/mm3 832-476 6325/06/06 leukocyte count, blood 7.4 10^3/MM^3 10*3/mm3 4.6-10.2 hematocrit, blood 41.1 % 41.0-53.0 mean corpuscular volume, RBC 95 fL 80-97 mean corpuscular hemoglobin, RBC 30.8 pg 27.0-31.2 mean corpuscular hemoglobin concentration, RBC 32.6 G/DL % 31.8- 35.4 red blood cell distribution width 15.5 % 11.6-14.8 platelet count 210 10^3/MM^3 10*3/mm3 142-424 Lab Report: CBC, Comp. Metabolic Panel - Chemistry sodium, serum 139 mmol/L 048-343 5889/03/17 carbon dioxide, venous blood 29.0 mmol/L 21.0-32.0 [...] Report: CBC, Comp. Metabolic Panel - Hematology erythrocyte (RBC) count 4.56 10^6/MM^3 10*6/mm3 4.69-6.13 hemoglobin, blood 13.6 g/dL 13.5-17.5 hematocrit, blood 42.0 % 41.0-53.0 mean corpuscular volume, RBC 92 fL 80-97 leukocyte count, blood 10.9 10^3/MM^3 10*3/mm3 4.6-10.2 mean corpuscular hemoglobin, RBC 29.9 pg 27.0-31.2 mean corpuscular hemoglobin concentration, RBC 32.5 G/DL % 31.8- 35.4 red blood cell distribution width 15.4 % 11.6-14.8 platelet count 283 10^3/MM^3 10*3/mm3 142-424 Lab Report: Comp. Metabolic Panel, Erythrocyte Sed Rate - Chemistry carbon dioxide, venous blood 24.3 mmol/L 21.0-32.0 urea nitrogen, blood 43 mg/dL 7-18 potassium, serum 5.1 mmol/L 3.5-5.2 chloride, serum 104 mmol/L 98-107 blood glucose 331 mg/dL 65-110 sodium, serum 136 mmol/L 152-611 9130/09/18 creatinine, serum 2.57 mg/dL 0.55-1.30 alanine aminotransferase (SGPT), serum 27 U/L 12-78 aspartate aminotransferase (SGOT), serum 18 U/L 15-37 calcium, serum 8.4 mg/dL 8.5-10.1 Lab Report: HGBA1C - Chemistry hemoglobin A1C, blood, as % of total hemoglobin 7.7 % 4.3-6.0 Lab Report: HGBA1C, Basic Metabolic Panel - Chemistry carbon dioxide, venous blood 24.4 mmol/L 21.0-32.0 blood glucose 261 mg/dL 65-110 calcium, serum 9.0 mg/dL 8.5-10.1 urea nitrogen, blood 44 mg/dL 7-18 creatinine, serum 2.37 mg/dL 0.55-1.30 hemoglobin A1C, blood, as % of total hemoglobin 8.5 % 4.3-6.0 sodium, serum 137 mmol/L 259-349 6017/02/12 potassium, serum 5.1 mmol/L 3.5-5.2 chloride, serum 103 mmol/L 98-107 Lab Report: Lipid Panel - Chemistry triglyceride, [...] 2.6-7.2 Encounters Code Encounter Date Provider Facility CPT-19588 Level 3 Est. Patient 09:18:25 CDT Simon Castillo MD [facility] CPT-65667 Level 4 Est. Patient 11:51:23 CDT Simon Castillo MD [facility] CPT-26361 Level 4 Est. Patient 14:32:04 CDT Neto Oshea DO [facility] CPT-29209 Level 3 Est. Patient 08:41:43 CDT Giles Tatum [facility] CPT-19147 Level 3 Est. Patient 08:40:53 CDT Giles Tatum [facility] CPT-17283 Level 3 Est. Patient 08:36:52 CDT Giles Tatum [facility] CPT-21596 Level 3 Est. Patient 09:08:44 CDT Jonathanmeli Nashtico HEMPHILL [facility] CPT-58078 Level 4 Est. Patient 09:17:32 HAM CLERK Simon Castillo MD [facility] CPT-80869 Level 3 Est. Patient 11:22:22 HAM CLERK Simon Castillo MD [facility] CPT-67935 Level 3 Est. Patient 09:02:14 CDT Simon Castillo MD [facility] CPT-62648 Level 4 Est. Patient 08:47:25 CDT Simon Castillo MD [facility] CPT-23630 Level 4 Est. Patient 10:17:25 CDT Simon Castillo MD [facility] CPT-05589 Level 4 Est. Patient 10:10:09 HAM CLERK Simon Castillo MD [facility] CPT-56086 Level 4 Est. Patient 11:48:19 CDT Simon Castillo MD [facility] CPT-92377 Level 4 Est. Patient 08:59:29 CDT Simon Castillo MD [facility] CPT-08349 Level 4 Est. Patient 10:52:51 HAM CLERK Simon Castillo MD [facility] CPT-10645 Level 4 Est. Patient 11:50:30 CDT Simon Castillo MD [facility] CPT-17689 Level 4 Est. Patient 09:54:46 CDT Simon Castillo MD [facility] CPT-90187 Level 3 Est. Patient 11:10:14 CDT Simon Castillo MD [facility] CPT-37425 Level 4 Est. Patient 09:44:02 CDT Simon Castillo MD [facility] CPT-06643 Level 3 Est. Patient 09:27:48 CDT Simon Castillo MD [facility] CPT-65379 Level 3 Est. Patient 09:58:06 HAM CLERK Simon Castillo MD [facility] CPT-26636 Level 3 Est. Patient 09:51:35 CDT Simon Castillo MD [facility] Procedures Code Procedure Name Date Entry Date Standard Description CPT-G0438 Initial Annual Wellness Exam 08:57:30 CDT CPT-29663 Chest 2V Frontal and Lat - XRAY USE ONLY 09:00:14 CDT CPT-54005 Venipuncture Draw Fee 13:33:02 CDT CPT-91060 Bone Density 09:37:49 HAM CLERK CPT-66177 Fluzone High Dose 17:20:42 CDT CPT-42469 Prevnar 13 17:20:42 CDT CPT-34005 Administration 2+ single or combination vaccines inc oral 17:20:42 CDT CPT-93762 Administration single or combination vaccine inc oral 17 :20:42 CDT CPT-03006 Hand comp min 3V 09:24:38 CDT CPT-68922 Venipuncture Draw Fee 08:07:29 HAM CLERK CPT-89926 Venipuncture Draw Fee 09:02:51 HAM CLERK CPT-72864 Venipuncture Draw Fee 12:45:08 HAM CLERK CPT-87091 Venipuncture Draw Fee 09:25:31 CDT CPT-G0008 Administration of Influenza Virus Vaccine 14:41:29 CDT CPT-42588 Fluzone High-Dose Intramuscular Suspension 14:41:29 CDT CPT-Cryo Cryotherapy 11:48:20 CDT CPT-17635 EKG Trac and Interp 09:21:58 CDT CPT-46332 Chest 2V Frontal and Lat 09:21:58 CDT CPT-Cryo Cryotherapy 10:54:51 HAM CLERK CPT-83507 Administration 2+ single or combination vaccines inc oral 10:42:19 CDT CPT-97508 Administration single or combination vaccine inc oral 10 :42:19 CDT CPT-04790 Pneumovax 10:42:19 CDT CPT-94633 Influenza High Dose age 65+ 10:42:19 CDT CPT-38668 Administration single or combination vaccine inc oral 13 :18:54 CDT CPT-63252 Influenza High Dose age 65+ 13:18:54 CDT CPT-17176 Venipuncture Draw Fee 11:53:16 CDT CPT-76462 LS spine comp w obliq 11:03:13 CDT CPT-Cryo Cryotherapy 08:27:16 HAM CLERK CPT-79161 Administration single or combination vaccine inc oral 10 :56:34 CDT CPT-88203 Influenza High Dose age 65+ 10:56:34 CDT
--- NOTE | 2018-03-31 17:27 | Diagnostic Imaging Report ---
INDICATION: Chest pain. TIME OF EXAM: 5:12 PM EXAM: No prior studies are available for comparison. FINDINGS: The heart size is normal. There is a right-sided dialysis line with tip overlying the SVC right atrial junction. Right hemidiaphragm is elevated. There appears to be some subsegmental atelectasis in the right base. Otherwise, the lungs are clear. No effusion or pneumothorax is seen. IMPRESSION: Right basilar atelectasis. No other significant abnormality is detected. Dictated by: Dictated on workstation # [id number]
--- OUTSIDE RECORDS SUMMARY | 2018-03-31 17:27 | XMS REPORT | Clinical Summary ---
Author Author Admin, RAFFI Salazar [employer] Address Unknown Phone Unavailable Allergies, Adverse Reactions, [...] stated as uncontrolled Hypertension 401.9 Active Simon Castlilo MD Unspecified essential hypertension FH DIABETES V18.0 [...] Castillo MD Rheumatoid arthritis Steroid use, intermediate project manager V58.65 Resolved Simon Castillo MD Long-term [...] Inactive Simon Castillo MD Steroid use, intermediate project manager ICD-V58.65 Inactive Simon Castillo MD Hand pain, bilateral ICD-729.5 Inactive Simon Castillo MD Medication List Medication Instructions Start Date Stop Date Generic Name NDC Status Provider Patient Instruction GLIMEPIRIDE 2 MG ORAL TABS 1 po q a.m. GLIMEPIRIDE 94042140437 Active Simon Castillo MD Active HYDROCODONE-ACETAMINOPHEN 5-325 MG TABS 1 tab by mouth 8 hours as needed for pain HYDROCODONE-ACETAMINOPHEN 11780848569 Active Simon Castillo MD Active TRAMADOL HCL 50 MG TABS 1 po q6hr PRN Pain TRAMADOL HCL 96990003322 No Longer Active Simon Castillo MD Active PREDNISONE 5 MG TAB 1-2 tabs daily for rheumatoid arthritis PREDNISONE 93820365366 Active Simon Castillo MD Active PREDNISONE 5 MG TABS 1 po qod PREDNISONE 87575919978 No Longer Active Simon Castillo MD Active SYMBICORT 160-4.5 MCG/ACT AERO 2 puff BID BUDESONIDE- FORMOTEROL FUMARATE 83159578810 No Longer Active Simon Castillo MD Active FLONASE 50 MCG/ACT SUSP 2 puffs in each nostril daily FLUTICASONE PROPIONATE 62512825628 No Longer Active Simon Castillo MD Active PREDNISONE 20 MG TAB 2 tabs daily for 5 days, then 1 daily for 5 days PREDNISONE 36656796713 No Longer Active Simon Castillo MD Active PREDNISONE 20 MG TAB 2 tabs daily for 5 days, then 1 daily for 5 days, then 0.5 for 4 days PREDNISONE 59526022799 No Longer Active Simon Castillo MD Active CLOTRIMAZOLE 1 % EXT CREA Apply to affected area of feet twice daily PRN Rash CLOTRIMAZOLE 94407059157 Active Simon Castillo MD Active PREDNISONE 20 MG TAB 2 tabs daily for 3 days, 1 tab daily for 3 days, 1/2 tab daily for 2 days PREDNISONE 20109824922 No Longer Active Simon Castillo MD Active AZITHROMYCIN 250 MG TABS 2 po qd x 1 day, then 1 po qd x 4 days AZITHROMYCIN 11813648392 No Longer Active Simon Castillo MD Active LISINOPRIL 10 MG TABS 1 tablet by mouth daily LISINOPRIL 87733150953 Active Simon Castillo MD Active CARVEDILOL 6.25 MG TABS 1 po BID CARVEDILOL 45392370801 Active Simon Castillo MD Active LISINOPRIL-HYDROCHLOROTHIAZIDE 20-12.5 MG TABS 1/2 tab by mouth daily LISINOPRIL-HYDROCHLOROTHIAZIDE 60605523376 No Longer Active Simon Castillo MD Active TRAMADOL HCL 50 MG TABS 1-2 tablets every 6 hours as needed for pain TRAMADOL HCL 80327513017 Active Simon Castillo MD Active PREDNISONE 5 MG TAB Take one po qod PREDNISONE 07224550386 No Longer Active Simon Castillo MD Active GLYBURIDE 5 MG TAB Take one by mouth daily GLYBURIDE 05034651730 No Longer Active Simon Castillo MD Active LEVAQUIN 750 MG TABS 1 po qod x 5 doses LEVOFLOXACIN 40284312036 No Longer Active Simon Castillo MD Active CETIRIZINE HCL 10 MG TABS 1 po qd as needed for allergies CETIRIZINE HCL 73871650471 No Longer Active Simon Castillo MD Active FISH OIL 1000 MG CPDR 1 pill by mouth twice daily for cholesterol OMEGA -3 FATTY ACIDS 22644102241 Active Simon Castillo MD Active BILBERRY CAPS 1 tab daily BILBERRY (VACCINIUM MYRTILLUS) CAPS 08904576139 Active Simon Castillo MD Active ATENOLOL 50 MG TABS Take one by mouth daily ATENOLOL 42973275079 No Longer Active Simon Castillo MD Active FLONASE 50 MCG/ACT SUSP 2 puffs in each nostril daily FLUTICASONE PROPIONATE 94502559493 No Longer Active Simon Castillo MD Active GLYBURIDE 5 MG TAB Take one by mouth daily GLYBURIDE 27780056940 No Longer Active Simon Castillo MD Active SYMBICORT 80-4.5 MCG/ACT AERO 2 puffs twice a day BUDESONIDE-FORMOTEROL FUMARATE 19066986750 No Longer Active Simon Castillo MD Active PREDNISONE 20 MG TAB 2 tabs daily for 4 days, 1 tab daily for 4 days, 1/2 tab daily for 4 days PREDNISONE 30396846292 No Longer Active Simon Castillo MD Active AMOXICILLIN 500 MG CAPS 2 po BID x 10 days AMOXICILLIN 10144523029 No Longer Active Simon Castillo MD Active METFORMIN HCL 1000 MG TABS 1 by mounth twice a day METFORMIN HCL 45211397262 No Longer Active Simon Castillo MD Active LUTEIN-ZEAXANTHIN 6-1 MG TABS Take 2 by mouth daily LUTEIN-ZEAXANTHIN 92790658032 Active Simon Castillo MD Active IBUPROFEN 800 MG TABS Take 1 tab every 6 hrs prn IBUPROFEN 61096898601 No Longer Active Simon Castillo MD Active GLYBURIDE 2.5 MG TABS Take one by mouth daily GLYBURIDE 94568417683 No Longer Active Simon Castillo MD Active LANCETS MISC 2 qd LANCETS 40407421230 Active Pamela Conde Active ACACIA CONTOUR TEST STRP Use with testing twice daily GLUCOSE BLOOD 40248885691 Active Simon Castillo MD Active ACACIA ASPIRIN 325 MG TABS Take one by mouth daily ASPIRIN 60628368426 Active Pamela Conde Active GLYBURIDE 2.5 MG TABS Take one by mouth daily GLYBURIDE 2.5 MG TABS 424826 GLYBURIDE Inactive PREDNISONE 20 MG TAB 2 tabs daily for 4 days, 1 tab daily for 4 days, 1/2 tab daily for 4 days PREDNISONE 20 MG TAB 659501 PREDNISONE Inactive SYMBICORT 80-4.5 MCG/ACT AERO 2 puffs twice a day SYMBICORT 80-4.5 MCG/ACT AERO BUDESONIDE-FORMOTEROL FUMARATE Inactive FLONASE 50 MCG/ACT SUSP 2 puffs in each nostril daily FLONASE 50 MCG/ACT SUSP FLUTICASONE PROPIONATE Inactive ATENOLOL 50 MG TABS Take one by mouth daily ATENOLOL 50 MG TABS 814384 ATENOLOL Inactive CETIRIZINE HCL 10 MG TABS 1 po qd as needed for allergies CETIRIZINE HCL 10 MG TABS 0181231 CETIRIZINE HCL Inactive LEVAQUIN 750 MG TABS 1 po qod x 5 doses LEVAQUIN 750 MG TABS 720718 LEVOFLOXACIN Inactive GLYBURIDE 5 MG TAB Take one by mouth daily GLYBURIDE 5 MG TAB 889080 GLYBURIDE Inactive PREDNISONE 5 MG TAB Take one po qod PREDNISONE 5 MG TAB 009432 PREDNISONE Inactive PREDNISONE 20 MG TAB 2 tabs daily for 5 days, then 1 daily for 5 days PREDNISONE 20 MG TAB 982518 PREDNISONE Inactive FLONASE 50 MCG/ACT SUSP 2 puffs in each nostril daily FLONASE 50 MCG/ACT SUSP FLUTICASONE PROPIONATE Inactive SYMBICORT 160-4.5 MCG/ACT AERO 2 puff BID SYMBICORT 160-4.5 MCG/ACT AERO BUDESONIDE-FORMOTEROL FUMARATE Inactive PREDNISONE 5 MG TABS 1 po qod PREDNISONE 5 MG TABS 071768 PREDNISONE Inactive AMOXICILLIN 500 MG CAPS 2 po BID x 10 days AMOXICILLIN 500 MG CAPS 656810 AMOXICILLIN Inactive GLYBURIDE 5 MG TAB Take one by mouth daily GLYBURIDE 5 MG TAB 832344 GLYBURIDE Inactive AZITHROMYCIN 250 MG TABS 2 po qd x 1 day, then 1 po qd x 4 days AZITHROMYCIN 250 MG TABS 4493624 AZITHROMYCIN Inactive PREDNISONE 20 MG TAB 2 tabs daily for 3 days, 1 tab daily for 3 days, 1/2 tab daily for 2 days PREDNISONE 20 MG TAB 775460 PREDNISONE Inactive PREDNISONE 20 MG TAB 2 tabs daily for 5 days, then 1 daily for 5 days, then 0.5 for 4 days PREDNISONE 20 MG TAB 758283 PREDNISONE Inactive Immunizations Vaccine Administration Date Value [...] Panel - Chemistry sodium, serum 132 mmol/L 016-418 7305/10/26 carbon dioxide, venous blood 22.8 mmol/L 21.0-32.0 [...] Panel - Chemistry sodium, serum 139 mmol/L 460-609 4775/03/17 carbon dioxide, venous blood 29.0 mmol/L 21.0-32.0 [...] Rate - Chemistry sodium, serum 136 mmol/L 310-344 4364/09/18 carbon dioxide, venous blood 24.3 mmol/L 21.0-32.0 [...] HGBA1C - Chemistry sodium, serum 139 mmol/L 483-328 7605/07/09 potassium, serum 5.4 mmol/L 3.5-5.2 chloride, serum [...] 8.5 % 4.3-6.0 sodium, serum 137 mmol/L 362-370 1422/02/12 potassium, serum 5.1 mmol/L 3.5-5.2 chloride, serum 103 mmol/L 98-107 carbon dioxide, venous blood 24.4 mmol/L 21.0-32.0 blood glucose 261 mg/dL 65-110 calcium, serum 9.0 mg/dL 8.5-10.1 urea nitrogen, blood 44 mg/dL 7-18 creatinine, serum 2.37 mg/dL 0.55-1.30 Lab Report: Lipid Panel - Chemistry cholesterol, serum 139 mg/dL 316-916 2115/09/10 triglyceride, serum, fasting 176 mg/dL 30-200 HDL cholesterol, serum 45 mg/dL 32-96 LDL cholesterol, serum 59 mg/dL 0-130 Lab Report: MICROALBUMIN - Chemistry albumin/creatinine ratio, urine 30 - 300 mg/g mg/g{creat} 0-29 Lab Report: MICROALBUMIN - Lab microalbumin, urine 30 0-19 Encounters Code Encounter Date Provider Facility CPT-59840 Level 4 Est. Patient 09:17:32 COMMUNICATIONS PROFESSOR Simon Castillo MD [facility] CPT-12766 Level 3 Est. Patient 11:22:22 COMMUNICATIONS PROFESSOR Simon Castillo MD [facility] CPT-79815 Level 3 Est. Patient 09:02:14 CDT Simon Castillo MD [facility] CPT-81311 Level 4 Est. Patient 08:47:25 CDT Smion Castillo MD [facility] CPT-63981 Level 4 Est. Patient 10:17:25 CDT Simon Castillo MD [facility] CPT-80539 Level 4 Est. Patient 10:10:09 COMMUNICATIONS PROFESSOR Simon Castillo MD [facility] CPT-36756 Level 4 Est. Patient 11:48:19 CDT Simon Castillo MD [facility] CPT-39245 Level 4 Est. Patient 08:59:29 CDT Simon Castillo MD [facility] CPT-64330 Level 4 Est. Patient 10:52:51 COMMUNICATIONS PROFESSOR Simon Castillo MD [facility] CPT-38792 Level 4 Est. Patient 11:50:30 CDT Simon Castillo MD [facility] CPT-36026 Level 4 Est. Patient 09:54:46 CDT Simon Castillo MD [facility] CPT-35508 Level 3 Est. Patient 11:10:14 CDT Simon Castillo MD [facility] CPT-10022 Level 4 Est. Patient 09:44:02 CDT Simon Castillo MD [facility] CPT-54617 Level 3 Est. Patient 09:27:48 CDT Simon Castillo MD [facility] CPT-69975 Level 3 Est. Patient 09:58:06 COMMUNICATIONS PROFESSOR Simon Castillo MD [facility] CPT-23184 Level 3 Est. Patient 09:51:35 CDT Simon Castillo MD [facility] Procedures Code Procedure Name Date Entry Date Standard Description CPT-90631 Venipuncture Draw Fee 13:33:02 CDT CPT-27302 Bone Density 09:37:49 COMMUNICATIONS PROFESSOR CPT-84407 Fluzone High Dose 17:20:42 CDT CPT-93347 Prevnar 13 17:20:42 CDT CPT-85052 Administration 2+ single or combination vaccines inc oral 17:20:42 CDT CPT-18311 Administration single or combination vaccine inc oral 17 :20:42 CDT CPT-93947 Hand comp min 3V 09:24:38 CDT CPT-68059 Venipuncture Draw Fee 08:07:29 COMMUNICATIONS PROFESSOR CPT-68242 Venipuncture Draw Fee 09:02:51 COMMUNICATIONS PROFESSOR CPT-30329 Venipuncture Draw Fee 12:45:08 COMMUNICATIONS PROFESSOR CPT-26315 Venipuncture Draw Fee 09:25:31 CDT CPT-G0008 Administration of Influenza Virus Vaccine 14:41:29 CDT CPT-18638 Fluzone High-Dose Intramuscular Suspension 14:41:29 CDT CPT-Cryo Cryotherapy 11:48:20 CDT CPT-34034 EKG Trac and Interp 09:21:58 CDT CPT-59699 Chest 2V Frontal and Lat 09:21:58 CDT CPT-Cryo Cryotherapy 10:54:51 COMMUNICATIONS PROFESSOR CPT-74310 Administration 2+ single or combination vaccines inc oral 10:42:19 CDT CPT-35176 Administration single or combination vaccine inc oral 10 :42:19 CDT CPT-21175 Pneumovax 10:42:19 CDT CPT-16371 Influenza High Dose age 65+ 10:42:19 CDT CPT-32013 Administration single or combination vaccine inc oral 13 :18:54 CDT CPT-62097 Influenza High Dose age 65+ 13:18:54 CDT CPT-35800 Venipuncture Draw Fee 11:53:16 CDT CPT-41800 LS spine comp w obliq 11:03:13 CDT CPT-Cryo Cryotherapy 08:27:16 COMMUNICATIONS PROFESSOR CPT-20141 Administration single or combination vaccine inc oral 10 :56:34 CDT CPT-62272 Influenza High Dose age 65+ 10:56:34 CDT
--- OUTSIDE RECORDS SUMMARY | 2018-03-31 17:28 | XMS REPORT | Clinical Summary ---
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 Kerry Castillo MD Steroid use, digital traffic coordinator ICD-V58.65 Inactive Simon Castillo MD Hand pain, [...] MG ORAL TABS 1 po BID GLIMEPIRIDE 38050220654 Active Simon Castillo MD Active ASPIRIN EC 81 MG ORAL TBEC 1 po qd ASPIRIN 07714206656 Active Simon Castillo MD Active CLOTRIMAZOLE 1 % EXT CREA Apply to affected area of feet twice daily PRN Rash CLOTRIMAZOLE 41366390277 No Longer Active Simon Castillo MD Active PREDNISONE 5 MG TAB 1 po BID PREDNISONE 30735172724 Active Simon Castillo MD Active FISH OIL 1000 MG CPDR 1 po BID OMEGA-3 FATTY ACIDS 02153708017 Active Simon Castillo MD Active LISINOPRIL 10 MG TABS 1 p qd LISINOPRIL 36474322369 Active Simon Castillo MD Active CLARITIN 10 MG TAB 1 tablet by mouth daily as needed for allergies LORATADINE 98773538448 No Longer Active Simon Castillo MD Active TRIAMCINOLONE ACETONIDE 0.1 % OINT Apply to affected areas TID for up to 2 weeks TRIAMCINOLONE ACETONIDE 70491549204 No Longer Active Simon Castillo MD Active LASIX 20 MG TAB 1 tablet by mouth daily x 2 days FUROSEMIDE 52693384808 No Longer Active Simon Castillo MD Active SULFASALAZINE 500 MG ORAL TBEC 2 tabs BID SULFASALAZINE 97254845835 No Longer Active Neto Oshea DO Active PREDNISONE 20 MG TAB 2 tabs daily for 3 days, 1 tab daily for 3 days, 1/2 tab daily for 2 days PREDNISONE 49645307712 No Longer Active Jillina Frazell APPLICATION OPERATIONS ENGINEER Active PREDNISONE 20 MG TAB 1 tablet daily for airway inflammation 02/25 PREDNISONE 89317314948 No Longer Active Jillina Frazell APPLICATION OPERATIONS ENGINEER Active AZITHROMYCIN 250 MG TABS 2 po qd x 1 day, then 1 po qd x 4 days AZITHROMYCIN 66406561101 No Longer Active Jillina Frazell APPLICATION OPERATIONS ENGINEER Active HYDROCODONE-ACETAMINOPHEN 5-325 MG TABS 1 tab by mouth 8 hours as needed for pain HYDROCODONE-ACETAMINOPHEN 57499510090 Active Simon Castillo MD Active TRAMADOL HCL 50 MG TABS 1 po q6hr PRN Pain TRAMADOL HCL 14230301883 No Longer Active Simon Castillo MD Active PREDNISONE 5 MG TABS 1 po qod PREDNISONE 03611032588 No Longer Active iSmon Castillo MD Active SYMBICORT 160-4.5 MCG/ACT AERO 2 puff BID BUDESONIDE- FORMOTEROL FUMARATE 97622708915 No Longer Active Simon Castillo MD Active FLONASE 50 MCG/ACT SUSP 2 puffs in each nostril daily FLUTICASONE PROPIONATE 18348141405 No Longer Active Simon Castillo MD Active PREDNISONE 20 MG TAB 2 tabs daily for 5 days, then 1 daily for 5 days PREDNISONE 91084453380 No Longer Active Simon Castillo MD Active PREDNISONE 20 MG TAB 2 tabs daily for 5 days, then 1 daily for 5 days, then 0.5 for 4 days PREDNISONE 51828878194 No Longer Active Simon Castillo MD Active PREDNISONE 20 MG TAB 2 tabs daily for 3 days, 1 tab daily for 3 days, 1/2 tab daily for 2 days PREDNISONE 66180412203 No Longer Active Simon Castillo MD Active AZITHROMYCIN 250 MG TABS 2 po qd x 1 day, then 1 po qd x 4 days AZITHROMYCIN 69924554111 No Longer Active Simon Castillo MD Active CARVEDILOL 6.25 MG TABS 1 po BID CARVEDILOL 18316456154 Active Simon Castillo MD Active LISINOPRIL-HYDROCHLOROTHIAZIDE 20-12.5 MG TABS 1/2 tab by mouth daily LISINOPRIL-HYDROCHLOROTHIAZIDE 31844153621 No Longer Active Simon Castillo MD Active TRAMADOL HCL 50 MG TABS 1-2 tablets every 6 hours as needed for pain TRAMADOL HCL 34793325777 Active Giles Tatum APRN Active PREDNISONE 5 MG TAB Take one po qod PREDNISONE 82955855227 No Longer Active Simon Castillo MD Active GLYBURIDE 5 MG TAB Take one by mouth daily GLYBURIDE 63532438415 No Longer Active Simon Castillo MD Active LEVAQUIN 750 MG TABS 1 po qod x 5 doses LEVOFLOXACIN 84065968835 No Longer Active Simon Castillo MD Active CETIRIZINE HCL 10 MG TABS 1 po qd as needed for allergies CETIRIZINE HCL 25019078681 No Longer Active Simon Castillo MD Active BILBERRY CAPS 1 tab daily BILBERRY (VACCINIUM MYRTILLUS) CAPS 48842795342 Active Simon Castillo MD Active ATENOLOL 50 MG TABS Take one by mouth daily ATENOLOL 76996919070 No Longer Active Simon Castillo MD Active FLONASE 50 MCG/ACT SUSP 2 puffs in each nostril daily FLUTICASONE PROPIONATE 35022702122 No Longer Active Simon Castillo MD Active GLYBURIDE 5 MG TAB Take one by mouth daily GLYBURIDE 79788903584 No Longer Active Simon Castillo MD Active SYMBICORT 80-4.5 MCG/ACT AERO 2 puffs twice a day BUDESONIDE-FORMOTEROL FUMARATE 59933578648 No Longer Active Simon Castillo MD Active PREDNISONE 20 MG TAB 2 tabs daily for 4 days, 1 tab daily for 4 days, 1/2 tab daily for 4 days PREDNISONE 88044756842 No Longer Active Simon Castillo MD Active AMOXICILLIN 500 MG CAPS 2 po BID x 10 days AMOXICILLIN 45723828497 No Longer Active Simon Castillo MD Active METFORMIN HCL 1000 MG TABS 1 by mount twice a day METFORMIN HCL 32662068550 No Longer Active Simon Castillo MD Active LUTEIN-ZEAXANTHIN 6-1 MG TABS Take 2 by mouth daily LUTEIN-ZEAXANTHIN 70458380979 Active Simon Castillo MD Active IBUPROFEN 800 MG TABS Take 1 tab every 6 hrs prn IBUPROFEN 88340375424 No Longer Active Simon Castillo MD Active GLYBURIDE 2.5 MG TABS Take one by mouth daily GLYBURIDE 53092837176 No Longer Active Simon Castillo MD Active LANCETS MISC 2 qd LANCETS 40340094900 Active Pamela Conde Active ACACIA CONTOUR TEST STRP Use with testing twice daily GLUCOSE BLOOD 37063943543 Active Simon Castillo MD Active GLYBURIDE 2.5 MG TABS Take one by mouth daily GLYBURIDE 2.5 MG TABS 000661 GLYBURIDE Inactive PREDNISONE 20 MG TAB 2 tabs daily for 4 days, 1 tab daily for 4 days, 1/2 tab daily for 4 days PREDNISONE 20 MG TAB 743637 PREDNISONE Inactive SYMBICORT 80-4.5 MCG/ACT AERO 2 puffs twice a day SYMBICORT 80-4.5 MCG/ACT AERO BUDESONIDE-FORMOTEROL FUMARATE Inactive FLONASE 50 MCG/ACT SUSP 2 puffs in each nostril daily FLONASE 50 MCG/ACT SUSP FLUTICASONE PROPIONATE Inactive ATENOLOL 50 MG TABS Take one by mouth daily ATENOLOL 50 MG TABS 135327 ATENOLOL Inactive CETIRIZINE HCL 10 MG TABS 1 po qd as needed for allergies CETIRIZINE HCL 10 MG TABS 2380942 CETIRIZINE HCL Inactive LEVAQUIN 750 MG TABS 1 po qod x 5 doses LEVAQUIN 750 MG TABS 004600 LEVOFLOXACIN Inactive GLYBURIDE 5 MG TAB Take one by mouth daily GLYBURIDE 5 MG TAB 808103 GLYBURIDE Inactive PREDNISONE 5 MG TAB Take one po qod PREDNISONE 5 MG TAB 642826 PREDNISONE Inactive PREDNISONE 20 MG TAB 2 tabs daily for 5 days, then 1 daily for 5 days PREDNISONE 20 MG TAB 688954 PREDNISONE Inactive FLONASE 50 MCG/ACT SUSP 2 puffs in each nostril daily FLONASE 50 MCG/ACT SUSP FLUTICASONE PROPIONATE Inactive SYMBICORT 160-4.5 MCG/ACT AERO 2 puff BID SYMBICORT 160-4.5 MCG/ACT AERO BUDESONIDE-FORMOTEROL FUMARATE Inactive PREDNISONE 5 MG TABS 1 po qod PREDNISONE 5 MG TABS 245871 PREDNISONE Inactive PREDNISONE 20 MG TAB 1 tablet daily for airway inflammation 02/25 PREDNISONE 20 MG TAB 480703 PREDNISONE Inactive SULFASALAZINE 500 MG ORAL TBEC 2 tabs BID SULFASALAZINE 500 MG ORAL TBEC 717101 SULFASALAZINE Inactive LASIX 20 MG TAB 1 tablet by mouth daily x 2 days LASIX 20 MG TAB 875412 FUROSEMIDE Inactive CLARITIN 10 MG TAB 1 tablet by mouth daily as needed for allergies CLARITIN 10 MG TAB 165258 LORATADINE Inactive CLOTRIMAZOLE 1 % EXT CREA Apply to affected area of feet twice daily PRN Rash CLOTRIMAZOLE 1 % EXT CREA 728910 CLOTRIMAZOLE Inactive AMOXICILLIN 500 MG CAPS 2 po BID x 10 days AMOXICILLIN 500 MG CAPS 804634 AMOXICILLIN Inactive GLYBURIDE 5 MG TAB Take one by mouth daily GLYBURIDE 5 MG TAB 162004 GLYBURIDE Inactive AZITHROMYCIN 250 MG TABS 2 po qd x 1 day, then 1 po qd x 4 days AZITHROMYCIN 250 MG TABS 1449426 AZITHROMYCIN Inactive PREDNISONE 20 MG TAB 2 tabs daily for 3 days, 1 tab daily for 3 days, 1/2 tab daily for 2 days PREDNISONE 20 MG TAB 148842 PREDNISONE Inactive PREDNISONE 20 MG TAB 2 tabs daily for 5 days, then 1 daily for 5 days, then 0.5 for 4 days PREDNISONE 20 MG TAB 294432 PREDNISONE Inactive AZITHROMYCIN 250 MG TABS 2 po qd x 1 day, then 1 po qd x 4 days AZITHROMYCIN 250 MG TABS 0176208 AZITHROMYCIN Inactive PREDNISONE 20 MG TAB 2 tabs daily for 3 days, 1 tab daily for 3 days, 1/2 tab daily for 2 days PREDNISONE 20 MG TAB 537034 PREDNISONE Inactive TRIAMCINOLONE ACETONIDE 0.1 % OINT Apply to affected areas TID for up to 2 weeks TRIAMCINOLONE ACETONIDE 0.1 % OINT 8782912 TRIAMCINOLONE ACETONIDE Inactive Immunizations Vaccine Administration Date [...] Panel - Chemistry sodium, serum 137 mmol/L 861-242 5758/06/06 carbon dioxide, venous blood 24.9 mmol/L 21.0-32.0 [...] Panel - Chemistry sodium, serum 139 mmol/L 437-078 4304/03/17 carbon dioxide, venous blood 29.0 mmol/L 21.0-32.0 [...] Panel - Chemistry cholesterol, serum 126 mg/dL 813-533 8445/02/07 triglyceride, serum, fasting 83 mg/dL 30-200 HDL cholesterol, serum 70 mg/dL 32-96 LDL cholesterol, serum 39 mg/dL 0-130 hemoglobin A1C, blood, as % of total hemoglobin 8.3 % 4.3-6.0 sodium, serum 141 mmol/L 986-843 7265/02/07 carbon dioxide, venous blood 26.0 mmol/L 21.0-32.0 [...] 2.6-7.2 Encounters Code Encounter Date Provider Facility CPT-80204 Level 4 Est. Patient 09:29:28 FORMING FIXER Simon Castillo MD [facility] CPT-10093 Level 3 Est. Patient 09:18:25 CDT Simon Castillo MD [facility] CPT-14578 Level 4 Est. Patient 11:51:23 CDT Simon Castillo MD [facility] CPT-48025 Level 4 Est. Patient 14:32:04 CDT Neto Oshea DO [facility] CPT-30519 Level 3 Est. Patient 08:41:43 CDT Giles Tatum APRN [facility] CPT-13112 Level 3 Est. Patient 08:40:53 CDT Jonathanviratriston Salcidoalejandrina [facility] CPT-52054 Level 3 Est. Patient 08:36:52 CDT Giles Caotico [facility] CPT-24859 Level 3 Est. Patient 09:08:44 CDT Jonathanmeli Nashtico [facility] CPT-11902 Level 4 Est. Patient 09:17:32 FORMING FIXER Simon Castillo MD [facility] CPT-04792 Level 3 Est. Patient 11:22:22 FORMING FIXER Simon Catsillo MD [facility] CPT-37017 Level 3 Est. Patient 09:02:14 CDT Simon Castillo MD [facility] CPT-08736 Level 4 Est. Patient 08:47:25 CDT Simon Castillo MD [facility] CPT-74606 Level 4 Est. Patient 10:17:25 CDT Simon Castillo MD [facility] CPT-80498 Level 4 Est. Patient 10:10:09 FORMING FIXER Simon Castillo MD [facility] CPT-60642 Level 4 Est. Patient 11:48:19 CDT Simon Castillo MD [facility] CPT-21403 Level 4 Est. Patient 08:59:29 CDT Simon Castillo MD [facility] CPT-92657 Level 4 Est. Patient 10:52:51 FORMING FIXER Simon Castillo MD [facility] CPT-84760 Level 4 Est. Patient 11:50:30 CDT Simon Castillo MD [facility] CPT-62303 Level 4 Est. Patient 09:54:46 CDT Simon Castillo MD [facility] CPT-14852 Level 3 Est. Patient 11:10:14 CDT Simon Castilol MD [facility] CPT-92991 Level 4 Est. Patient 09:44:02 CDT Simon Castillo MD [facility] CPT-07953 Level 3 Est. Patient 09:27:48 CDT Simon Castillo MD [facility] CPT-25588 Level 3 Est. Patient 09:58:06 FORMING FIXER Simon Castillo MD [facility] CPT-18913 Level 3 Est. Patient 09:51:35 CDT Simon Castillo MD [facility] Procedures Code Procedure Name Date Entry Date Standard Description CPT-77938 Lipid - LAB USE ONLY 17:15:33 CDT CPT-12166 HGBA1C - LAB USE ONLY 17:15:33 CDT CPT-45848 CMP - LAB USE ONLY 17:15:33 CDT CPT-70976 Venipuncture Draw Fee 17:15:33 CDT [facility] Transitional Care Mgmt-High 11:01:28 FORMING FIXER CPT-08935 First Vx - Ix admin for Medicare patients 17:33:39 CDT CPT-77466 Fluzone High-Dose Intramuscular Suspension 17:33:39 CDT CPT-G0438 Initial Annual Wellness Exam 08:57:30 CDT CPT-44452 Chest 2V Frontal and Lat - XRAY USE ONLY 09:00:14 CDT CPT-41626 Venipuncture Draw Fee 13:33:02 CDT CPT-62628 Bone Density 09:37:49 FORMING FIXER CPT-37988 Fluzone High Dose 17:20:42 CDT CPT-49173 Prevnar 13 17:20:42 CDT CPT-81431 Administration 2+ single or combination vaccines inc oral 17:20:42 CDT CPT-30093 Administration single or combination vaccine inc oral 17 :20:42 CDT CPT-89998 Hand comp min 3V 09:24:38 CDT CPT-00331 Venipuncture Draw Fee 08:07:29 FORMING FIXER CPT-39811 Venipuncture Draw Fee 09:02:51 FORMING FIXER CPT-47814 Venipuncture Draw Fee 12:45:08 FORMING FIXER CPT-16734 Venipuncture Draw Fee 09:25:31 CDT CPT-G0008 Administration of Influenza Virus Vaccine 14:41:29 CDT CPT-01076 Fluzone High-Dose Intramuscular Suspension 14:41:29 CDT CPT-[facility] Cry[facility] 11:48:20 CDT CPT-24712 EKG Trac and Interp 09:21:58 CDT CPT-78690 Chest 2V Frontal and Lat 09:21:58 CDT CPT-Cryo Cryotherapy 10:54:51 FORMING FIXER CPT-01960 Administration 2+ single or combination vaccines inc oral 10:42:19 CDT CPT-17543 Administration single or combination vaccine inc oral 10 :42:19 CDT CPT-21224 Pneumovax 10:42:19 CDT CPT-40373 Influenza High Dose age 65+ 10:42:19 CDT CPT-54712 Administration single or combination vaccine inc oral 13 :18:54 CDT CPT-55474 Influenza High Dose age 65+ 13:18:54 CDT CPT-67512 Venipuncture Draw Fee 11:53:16 CDT CPT-45244 LS spine comp w obliq 11:03:13 CDT CPT-Cryo Cryotherapy 08:27:16 FORMING FIXER CPT-37756 Administration single or combination vaccine inc oral 10 :56:34 CDT CPT-54410 Influenza High Dose age 65+ 10:56:34 CDT
--- OUTSIDE RECORDS SUMMARY | 2018-03-31 17:29 | XMS REPORT | Clinical Summary ---
Author Author Admin, E Organization [employer] Address Unknown Phone Unavailable Allergies, Adverse Reactions, [...] Simon Castillo MD Rheumatoid arthritis Steroid use, director long term care V58.65 Resolved Simon Castillo [...] ICD-729.5 Inactive Simon Castillo MD Steroid use, director long term care ICD-V58.65 Inactive Simon Castillo MD Hand pain, [...] MG ORAL TBEC 1 po qd ASPIRIN 89108072381 Active Simon Castillo MD Active CLOTRIMAZOLE 1 % EXT CREA Apply to affected area of feet twice daily PRN Rash CLOTRIMAZOLE 73529765479 No Longer Active Simon Castillo MD Active PREDNISONE 5 MG TAB 1 po BID PREDNISONE 40706491723 Active Simon Castillo MD Active GLIMEPIRIDE 2 MG ORAL TABS 1 po BID GLIMEPIRIDE 87119101197 Active Simon Castillo MD Active FISH OIL 1000 MG CPDR 1 po BID OMEGA-3 FATTY ACIDS 55770212399 Active Simon Castillo MD Active LISINOPRIL 10 MG TABS 1 p qd LISINOPRIL 17343679706 Active Simon Castillo MD Active CLARITIN 10 MG TAB 1 tablet by mouth daily as needed for allergies LORATADINE 66725593519 No Longer Active Simon Castillo MD Active TRIAMCINOLONE ACETONIDE 0.1 % OINT Apply to affected areas TID for up to 2 weeks TRIAMCINOLONE ACETONIDE 08776448662 No Longer Active Simon Castillo MD Active LASIX 20 MG TAB 1 tablet by mouth daily x 2 days FUROSEMIDE 53449732361 No Longer Active Simon Castillo MD Active SULFASALAZINE 500 MG ORAL TBEC 2 tabs BID SULFASALAZINE 78054610882 No Longer Active Neto Oshea DO Active PREDNISONE 20 MG TAB 2 tabs daily for 3 days, 1 tab daily for 3 days, 1/2 tab daily for 2 days PREDNISONE 67297415235 No Longer Active Jillina Frazell CABLE TELEVISION INSTALLER Active PREDNISONE 20 MG TAB 1 tablet daily for airway inflammation 02/25 PREDNISONE 28350905498 No Longer Active Jillina Frazell CABLE TELEVISION INSTALLER Active AZITHROMYCIN 250 MG TABS 2 po qd x 1 day, then 1 po qd x 4 days AZITHROMYCIN 44282835834 No Longer Active Jillina Frazell CABLE TELEVISION INSTALLER Active HYDROCODONE-ACETAMINOPHEN 5-325 MG TABS 1 tab by mouth 8 hours as needed for pain HYDROCODONE-ACETAMINOPHEN 21036157160 Active Simon Castillo MD Active TRAMADOL HCL 50 MG TABS 1 po q6hr PRN Pain TRAMADOL HCL 95529392129 No Longer Active Simon Castillo MD Active PREDNISONE 5 MG TABS 1 po qod PREDNISONE 48815847909 No Longer Active Simon Castillo MD Active SYMBICORT 160-4.5 MCG/ACT AERO 2 puff BID BUDESONIDE- FORMOTEROL FUMARATE 94499229569 No Longer Active Simon Castillo MD Active FLONASE 50 MCG/ACT SUSP 2 puffs in each nostril daily FLUTICASONE PROPIONATE 40270065928 No Longer Active Simon Castillo MD Active PREDNISONE 20 MG TAB 2 tabs daily for 5 days, then 1 daily for 5 days PREDNISONE 70731978810 No Longer Active Simon Castillo MD Active PREDNISONE 20 MG TAB 2 tabs daily for 5 days, then 1 daily for 5 days, then 0.5 for 4 days PREDNISONE 44254476988 No Longer Active Simon Castillo MD Active PREDNISONE 20 MG TAB 2 tabs daily for 3 days, 1 tab daily for 3 days, 1/2 tab daily for 2 days PREDNISONE 19529616664 No Longer Active Simon Castillo MD Active AZITHROMYCIN 250 MG TABS 2 po qd x 1 day, then 1 po qd x 4 days AZITHROMYCIN 83831494664 No Longer Active Simon Castillo MD Active CARVEDILOL 6.25 MG TABS 1 po BID CARVEDILOL 51971759106 Active Simon Castillo MD Active LISINOPRIL-HYDROCHLOROTHIAZIDE 20-12.5 MG TABS 1/2 tab by mouth daily LISINOPRIL-HYDROCHLOROTHIAZIDE 64010049503 No Longer Active Simon Castillo MD Active TRAMADOL HCL 50 MG TABS 1-2 tablets every 6 hours as needed for pain TRAMADOL HCL 83043711426 Active Giles Tatum APRN Active PREDNISONE 5 MG TAB Take one po qod PREDNISONE 54056767999 No Longer Active Simon Castillo MD Active GLYBURIDE 5 MG TAB Take one by mouth daily GLYBURIDE 63621602482 No Longer Active Simon Castillo MD Active LEVAQUIN 750 MG TABS 1 po qod x 5 doses LEVOFLOXACIN 84716878990 No Longer Active Simon Castillo MD Active CETIRIZINE HCL 10 MG TABS 1 po qd as needed for allergies CETIRIZINE HCL 39011327556 No Longer Active Simon Castillo MD Active BILBERRY CAPS 1 tab daily BILBERRY (VACCINIUM MYRTILLUS) CAPS 65966848495 Active Simon Castillo MD Active ATENOLOL 50 MG TABS Take one by mouth daily ATENOLOL 29512586063 No Longer Active Simon Castillo MD Active FLONASE 50 MCG/ACT SUSP 2 puffs in each nostril daily FLUTICASONE PROPIONATE 33614941914 No Longer Active Simon Castillo MD Active GLYBURIDE 5 MG TAB Take one by mouth daily GLYBURIDE 24788488761 No Longer Active Simon Castillo MD Active SYMBICORT 80-4.5 MCG/ACT AERO 2 puffs twice a day BUDESONIDE-FORMOTEROL FUMARATE 75637012369 No Longer Active Simon Castillo MD Active PREDNISONE 20 MG TAB 2 tabs daily for 4 days, 1 tab daily for 4 days, 1/2 tab daily for 4 days PREDNISONE 76401506396 No Longer Active Simon Castillo MD Active AMOXICILLIN 500 MG CAPS 2 po BID x 10 days AMOXICILLIN 94741529147 No Longer Active Simon Castillo MD Active METFORMIN HCL 1000 MG TABS 1 by mounth twice a day METFORMIN HCL 48950404401 No Longer Active Simon Castillo MD Active LUTEIN-ZEAXANTHIN 6-1 MG TABS Take 2 by mouth daily LUTEIN-ZEAXANTHIN 24756038970 Active Simon Castillo MD Active IBUPROFEN 800 MG TABS Take 1 tab every 6 hrs prn IBUPROFEN 40852147260 No Longer Active Simon Castillo MD Active GLYBURIDE 2.5 MG TABS Take one by mouth daily GLYBURIDE 76707036526 No Longer Active Simon Castillo MD Active LANCETS MISC 2 qd LANCETS 38546441878 Active Pamela Conde Active ACACIA CONTOUR TEST STRP Use with testing twice daily GLUCOSE BLOOD 53115338903 Active Simon Castillo MD Active GLYBURIDE 2.5 MG TABS Take one by mouth daily GLYBURIDE 2.5 MG TABS 671532 GLYBURIDE Inactive PREDNISONE 20 MG TAB 2 tabs daily for 4 days, 1 tab daily for 4 days, 1/2 tab daily for 4 days PREDNISONE 20 MG TAB 377709 PREDNISONE Inactive SYMBICORT 80-4.5 MCG/ACT AERO 2 puffs twice a day SYMBICORT 80-4.5 MCG/ACT AERO BUDESONIDE-FORMOTEROL FUMARATE Inactive FLONASE 50 MCG/ACT SUSP 2 puffs in each nostril daily FLONASE 50 MCG/ACT SUSP FLUTICASONE PROPIONATE Inactive ATENOLOL 50 MG TABS Take one by mouth daily ATENOLOL 50 MG TABS 855804 ATENOLOL Inactive CETIRIZINE HCL 10 MG TABS 1 po qd as needed for allergies CETIRIZINE HCL 10 MG TABS 1753505 CETIRIZINE HCL Inactive LEVAQUIN 750 MG TABS 1 po qod x 5 doses LEVAQUIN 750 MG TABS 913071 LEVOFLOXACIN Inactive GLYBURIDE 5 MG TAB Take one by mouth daily GLYBURIDE 5 MG TAB 871619 GLYBURIDE Inactive PREDNISONE 5 MG TAB Take one po qod PREDNISONE 5 MG TAB 526195 PREDNISONE Inactive PREDNISONE 20 MG TAB 2 tabs daily for 5 days, then 1 daily for 5 days PREDNISONE 20 MG TAB 637772 PREDNISONE Inactive FLONASE 50 MCG/ACT SUSP 2 puffs in each nostril daily FLONASE 50 MCG/ACT SUSP FLUTICASONE PROPIONATE Inactive SYMBICORT 160-4.5 MCG/ACT AERO 2 puff BID SYMBICORT 160-4.5 MCG/ACT AERO BUDESONIDE-FORMOTEROL FUMARATE Inactive PREDNISONE 5 MG TABS 1 po qod PREDNISONE 5 MG TABS 849704 PREDNISONE Inactive PREDNISONE 20 MG TAB 1 tablet daily for airway inflammation 02/25 PREDNISONE 20 MG TAB 093944 PREDNISONE Inactive SULFASALAZINE 500 MG ORAL TBEC 2 tabs BID SULFASALAZINE 500 MG ORAL TBEC 548836 SULFASALAZINE Inactive LASIX 20 MG TAB 1 tablet by mouth daily x 2 days LASIX 20 MG TAB 739421 FUROSEMIDE Inactive CLARITIN 10 MG TAB 1 tablet by mouth daily as needed for allergies CLARITIN 10 MG TAB 382021 LORATADINE Inactive CLOTRIMAZOLE 1 % EXT CREA Apply to affected area of feet twice daily PRN Rash CLOTRIMAZOLE 1 % EXT CREA 068770 CLOTRIMAZOLE Inactive AMOXICILLIN 500 MG CAPS 2 po BID x 10 days AMOXICILLIN 500 MG CAPS 670169 AMOXICILLIN Inactive GLYBURIDE 5 MG TAB Take one by mouth daily GLYBURIDE 5 MG TAB 209874 GLYBURIDE Inactive AZITHROMYCIN 250 MG TABS 2 po qd x 1 day, then 1 po qd x 4 days AZITHROMYCIN 250 MG TABS 4153209 AZITHROMYCIN Inactive PREDNISONE 20 MG TAB 2 tabs daily for 3 days, 1 tab daily for 3 days, 1/2 tab daily for 2 days PREDNISONE 20 MG TAB 464301 PREDNISONE Inactive PREDNISONE 20 MG TAB 2 tabs daily for 5 days, then 1 daily for 5 days, then 0.5 for 4 days PREDNISONE 20 MG TAB 461960 PREDNISONE Inactive AZITHROMYCIN 250 MG TABS 2 po qd x 1 day, then 1 po qd x 4 days AZITHROMYCIN 250 MG TABS 2826167 AZITHROMYCIN Inactive PREDNISONE 20 MG TAB 2 tabs daily for 3 days, 1 tab daily for 3 days, 1/2 tab daily for 2 days PREDNISONE 20 MG TAB 577399 PREDNISONE Inactive TRIAMCINOLONE ACETONIDE 0.1 % OINT Apply to affected areas TID for up to 2 weeks TRIAMCINOLONE ACETONIDE 0.1 % OINT 8006594 TRIAMCINOLONE ACETONIDE Inactive Immunizations Vaccine Administration Date [...] Panel - Chemistry sodium, serum 137 mmol/L 638-255 5711/06/06 carbon dioxide, venous blood 24.9 mmol/L 21.0-32.0 [...] Panel - Chemistry sodium, serum 139 mmol/L 955-511 4757/03/17 carbon dioxide, venous blood 29.0 mmol/L 21.0-32.0 [...] 8.5 % 4.3-6.0 sodium, serum 137 mmol/L 843-705 4573/02/12 potassium, serum 5.1 mmol/L 3.5-5.2 chloride, serum 103 mmol/L 98-107 carbon dioxide, venous blood 24.4 mmol/L 21.0-32.0 blood glucose 261 mg/dL 65-110 calcium, serum 9.0 mg/dL 8.5-10.1 urea nitrogen, blood 44 mg/dL 7-18 creatinine, serum 2.37 mg/dL 0.55-1.30 Lab Report: Lipid Panel, HGBA1C, Comp. Metabolic Panel - Chemistry cholesterol, serum 126 mg/dL 107-190 5920/02/07 triglyceride, serum, fasting 83 mg/dL 30-200 HDL cholesterol, serum 70 mg/dL 32-96 LDL cholesterol, serum 39 mg/dL 0-130 hemoglobin A1C, blood, as % of total hemoglobin 8.3 % 4.3-6.0 sodium, serum 141 mmol/L 264-143 4521/02/07 carbon dioxide, venous blood 26.0 mmol/L 21.0-32.0 [...] 2.6-7.2 Encounters Code Encounter Date Provider Facility CPT-14142 Level 4 Est. Patient 09:29:28 COMPUTING CONSULTANT Simon Castillo MD [facility] CPT-11620 Level 3 Est. Patient 09:18:25 CDT Simon Castillo MD [facility] CPT-02526 Level 4 Est. Patient 11:51:23 CDT Simon Castillo MD [facility] CPT-59756 Level 4 Est. Patient 14:32:04 CDT Neto Oshea DO [facility] CPT-92455 Level 3 Est. Patient 08:41:43 CDT Giles Nashamayal [facility][note 3] CPT-21364 Level 3 Est. Patient 08:40:53 CDT Jillina Nashzell [facility][note 3] CPT-66718 Level 3 Est. Patient 08:36:52 CDT Jillina Nashzell [facility][note 3] CPT-24535 Level 3 Est. Patient 09:08:44 CDT Jonathanmeli Nashamayal [facility][note 3] CPT-79057 Level 4 Est. Patient 09:17:32 COMPUTING CONSULTANT Simon Castillo MD [facility] CPT-32813 Level 3 Est. Patient 11:22:22 COMPUTING CONSULTANT Simon Castillo MD [facility] CPT-27367 Level 3 Est. Patient 09:02:14 CDT Simon Castillo MD [facility] CPT-74397 Level 4 Est. Patient 08:47:25 CDT Simon Castillo MD [facility] CPT-87890 Level 4 Est. Patient 10:17:25 CDT Simon Castillo MD [facility] CPT-76024 Level 4 Est. Patient 10:10:09 COMPUTING CONSULTANT Simon Castillo MD [facility] CPT-04476 Level 4 Est. Patient 11:48:19 CDT Simon Castillo MD [facility] CPT-77468 Level 4 Est. Patient 08:59:29 CDT Simon Castillo MD [facility] CPT-77229 Level 4 Est. Patient 10:52:51 COMPUTING CONSULTANT Simon Castillo MD [facility] CPT-17238 Level 4 Est. Patient 11:50:30 CDT Simon Castillo MD [facility] CPT-12021 Level 4 Est. Patient 09:54:46 CDT Simon Castillo MD [facility] CPT-83966 Level 3 Est. Patient 11:10:14 CDT Simon Castillo MD [facility] CPT-32739 Level 4 Est. Patient 09:44:02 CDT Simon Castillo MD [facility] CPT-09658 Level 3 Est. Patient 09:27:48 CDT Simon Castillo MD [facility] CPT-72904 Level 3 Est. Patient 09:58:06 COMPUTING CONSULTANT Simon Castillo MD [facility] CPT-27442 Level 3 Est. Patient 09:51:35 CDT Simon Castillo MD [facility] Procedures Code Procedure Name Date Entry Date Standard Description CPT-67610 First Vx - Ix admin for Medicare patients 17:33:39 CDT CPT-25219 Fluzone High-Dose Intramuscular Suspension 17:33:39 CDT CPT-G0438 Initial Annual Wellness Exam 08:57:30 CDT CPT-98534 Chest 2V Frontal and Lat - XRAY USE ONLY 09:00:14 CDT CPT-58066 Venipuncture Draw Fee 13:33:02 CDT CPT-47080 Bone Density 09:37:49 COMPUTING CONSULTANT CPT-31725 Fluzone High Dose 17:20:42 CDT CPT-24938 Prevnar 13 17:20:42 CDT CPT-07582 Administration 2+ single or combination vaccines inc oral 17:20:42 CDT CPT-61716 Administration single or combination vaccine inc oral 17 :20:42 CDT CPT-74516 Hand comp min 3V 09:24:38 CDT CPT-85761 Venipuncture Draw Fee 08:07:29 COMPUTING CONSULTANT CPT-16200 Venipuncture Draw Fee 09:02:51 COMPUTING CONSULTANT CPT-82129 Venipuncture Draw Fee 12:45:08 COMPUTING CONSULTANT CPT-35560 Venipuncture Draw Fee 09:25:31 CDT CPT-G0008 Administration of Influenza Virus Vaccine 14:41:29 CDT CPT-01023 Fluzone High-Dose Intramuscular Suspension 14:41:29 CDT CPT-Cryo Cryotherapy 11:48:20 CDT CPT-74902 EKG Trac and Interp 09:21:58 CDT CPT-82608 Chest 2V Frontal and Lat 09:21:58 CDT CPT-Cryo Cryotherapy 10:54:51 COMPUTING CONSULTANT CPT-83625 Administration 2+ single or combination vaccines inc oral 10:42:19 CDT CPT-03794 Administration single or combination vaccine inc oral 10 :42:19 CDT CPT-17225 Pneumovax 10:42:19 CDT CPT-70635 Influenza High Dose age 65+ 10:42:19 CDT CPT-92496 Administration single or combination vaccine inc oral 13 :18:54 CDT CPT-93620 Influenza High Dose age 65+ 13:18:54 CDT CPT-59041 Venipuncture Draw Fee 11:53:16 CDT CPT-77581 LS spine comp w obliq 11:03:13 CDT CPT-Cryo Cryotherapy 08:27:16 COMPUTING CONSULTANT CPT-30471 Administration single or combination vaccine inc oral 10 :56:34 CDT CPT-94402 Influenza High Dose age 65+ 10:56:34 CDT
--- OUTSIDE RECORDS SUMMARY | 2018-03-31 17:30 | XMS REPORT | Clinical Summary ---
Author Author Admin, RAFFI Salazar [employer] Address Unknown Phone Unavailable Allergies, Adverse Reactions, [...] involving unspecified site Eczema 692.9 Active Simon Csatillo MD Contact dermatitis and other eczema, unspecified [...] Castillo MD 2013 Hand pain, bilateral ICD-729.5 Inactive Simon Castillo MD Tinea pedis ICD-110.4 Inactive Simon Castillo MD BENIGN PROSTATIC HYPERTROPHY, MILD, HX OF ICD-V13.89 Inactive Simon Castillo MD Steroid use, skilled nursing ICD-V58.65 Inactive Simon Castillo MD Hand pain, bilateral ICD-729.5 Inactive Simon Castillo MD Medication List Medication Instructions Start Date Stop Date Generic Name NDC Status Provider Patient Instruction GLIMEPIRIDE 2 MG ORAL TABS 1 po q a.m. GLIMEPIRIDE 15347224796 Active Simon Castillo MD Active HYDROCODONE-ACETAMINOPHEN 5-325 MG TABS 1 tab by mouth 8 hours as needed for pain HYDROCODONE-ACETAMINOPHEN 00371110783 Active Simon Castillo MD Active TRAMADOL HCL 50 MG TABS 1 po q6hr PRN Pain TRAMADOL HCL 70843149804 No Longer Active Simon Castillo MD Active PREDNISONE 5 MG TAB 1-2 tabs daily for rheumatoid arthritis PREDNISONE 76933860110 Active Simon Castillo MD Active PREDNISONE 5 MG TABS 1 po qod PREDNISONE 40042638109 No Longer Active Simon Castillo MD Active SYMBICORT 160-4.5 MCG/ACT AERO 2 puff BID BUDESONIDE- FORMOTEROL FUMARATE 75355562361 No Longer Active Simon Castillo MD Active FLONASE 50 MCG/ACT SUSP 2 puffs in each nostril daily FLUTICASONE PROPIONATE 05579677679 No Longer Active Simon Castillo MD Active PREDNISONE 20 MG TAB 2 tabs daily for 5 days, then 1 daily for 5 days PREDNISONE 51637339008 No Longer Active Simon Castillo MD Active PREDNISONE 20 MG TAB 2 tabs daily for 5 days, then 1 daily for 5 days, then 0.5 for 4 days PREDNISONE 79591608272 No Longer Active Simon Castillo MD Active CLOTRIMAZOLE 1 % EXT CREA Apply to affected area of feet twice daily PRN Rash CLOTRIMAZOLE 73665587166 Active Simon Castillo MD Active PREDNISONE 20 MG TAB 2 tabs daily for 3 days, 1 tab daily for 3 days, 1/2 tab daily for 2 days PREDNISONE 30541786153 No Longer Active Simon Castillo MD Active AZITHROMYCIN 250 MG TABS 2 po qd x 1 day, then 1 po qd x 4 days AZITHROMYCIN 28738288242 No Longer Active Simon Csatillo MD Active LISINOPRIL 10 MG TABS 1 tablet by mouth daily LISINOPRIL 94523570642 Active Simon Castillo MD Active CARVEDILOL 6.25 MG TABS 1 po BID CARVEDILOL 20972367443 Active Simon Castillo MD Active LISINOPRIL-HYDROCHLOROTHIAZIDE 20-12.5 MG TABS 1/2 tab by mouth daily LISINOPRIL-HYDROCHLOROTHIAZIDE 86870039744 No Longer Active Simon Castillo MD Active TRAMADOL HCL 50 MG TABS 1-2 tablets every 6 hours as needed for pain TRAMADOL HCL 09886142331 Active Simon Castillo MD Active PREDNISONE 5 MG TAB Take one po qod PREDNISONE 67392474523 No Longer Active Simon Castillo MD Active GLYBURIDE 5 MG TAB Take one by mouth daily GLYBURIDE 96033632514 No Longer Active Simon Castillo MD Active LEVAQUIN 750 MG TABS 1 po qod x 5 doses LEVOFLOXACIN 03890529460 No Longer Active Simon Castillo MD Active CETIRIZINE HCL 10 MG TABS 1 po qd as needed for allergies CETIRIZINE HCL 37388005959 No Longer Active Simon Castillo MD Active FISH OIL 1000 MG CPDR 1 pill by mouth twice daily for cholesterol OMEGA -3 FATTY ACIDS 61266460130 Active Simon Castillo MD Active BILBERRY CAPS 1 tab daily BILBERRY (VACCINIUM MYRTILLUS) CAPS 28982013371 Active Simon Castillo MD Active ATENOLOL 50 MG TABS Take one by mouth daily ATENOLOL 87720304996 No Longer Active Simon Castillo MD Active FLONASE 50 MCG/ACT SUSP 2 puffs in each nostril daily FLUTICASONE PROPIONATE 73659383587 No Longer Active Simon Castillo MD Active GLYBURIDE 5 MG TAB Take one by mouth daily GLYBURIDE 41939248741 No Longer Active Simon Castillo MD Active SYMBICORT 80-4.5 MCG/ACT AERO 2 puffs twice a day BUDESONIDE-FORMOTEROL FUMARATE 75129309439 No Longer Active Simon Castillo MD Active PREDNISONE 20 MG TAB 2 tabs daily for 4 days, 1 tab daily for 4 days, 1/2 tab daily for 4 days PREDNISONE 94218160229 No Longer Active Simon Castillo MD Active AMOXICILLIN 500 MG CAPS 2 po BID x 10 days AMOXICILLIN 77369267280 No Longer Active Simon Castillo MD Active METFORMIN HCL 1000 MG TABS 1 by mounth twice a day METFORMIN HCL 60816051393 No Longer Active Simon Castillo MD Active LUTEIN-ZEAXANTHIN 6-1 MG TABS Take 2 by mouth daily LUTEIN-ZEAXANTHIN 78602012734 Active Simon Castillo MD Active IBUPROFEN 800 MG TABS Take 1 tab every 6 hrs prn IBUPROFEN 61804076700 No Longer Active Simon Castillo MD Active GLYBURIDE 2.5 MG TABS Take one by mouth daily GLYBURIDE 28333686319 No Longer Active Simon Castillo MD Active LANCETS MISC 2 qd LANCETS 95553526131 Active Pamela Conde Active ACACIA CONTOUR TEST STRP Use with testing twice daily GLUCOSE BLOOD 47169944495 Active Simon Castillo MD Active ACACIA ASPIRIN 325 MG TABS Take one by mouth daily ASPIRIN 75267952195 Active Pamela Conde Active GLYBURIDE 2.5 MG TABS Take one by mouth daily GLYBURIDE 2.5 MG TABS 509607 GLYBURIDE Inactive PREDNISONE 20 MG TAB 2 tabs daily for 4 days, 1 tab daily for 4 days, 1/2 tab daily for 4 days PREDNISONE 20 MG TAB 806794 PREDNISONE Inactive SYMBICORT 80-4.5 MCG/ACT AERO 2 puffs twice a day SYMBICORT 80-4.5 MCG/ACT AERO BUDESONIDE-FORMOTEROL FUMARATE Inactive FLONASE 50 MCG/ACT SUSP 2 puffs in each nostril daily FLONASE 50 MCG/ACT SUSP FLUTICASONE PROPIONATE Inactive ATENOLOL 50 MG TABS Take one by mouth daily ATENOLOL 50 MG TABS 186765 ATENOLOL Inactive CETIRIZINE HCL 10 MG TABS 1 po qd as needed for allergies CETIRIZINE HCL 10 MG TABS 8945439 CETIRIZINE HCL Inactive LEVAQUIN 750 MG TABS 1 po qod x 5 doses LEVAQUIN 750 MG TABS 103187 LEVOFLOXACIN Inactive GLYBURIDE 5 MG TAB Take one by mouth daily GLYBURIDE 5 MG TAB 016236 GLYBURIDE Inactive PREDNISONE 5 MG TAB Take one po qod PREDNISONE 5 MG TAB 359614 PREDNISONE Inactive PREDNISONE 20 MG TAB 2 tabs daily for 5 days, then 1 daily for 5 days PREDNISONE 20 MG TAB 816984 PREDNISONE Inactive FLONASE 50 MCG/ACT SUSP 2 puffs in each nostril daily FLONASE 50 MCG/ACT SUSP FLUTICASONE PROPIONATE Inactive SYMBICORT 160-4.5 MCG/ACT AERO 2 puff BID SYMBICORT 160-4.5 MCG/ACT AERO BUDESONIDE-FORMOTEROL FUMARATE Inactive PREDNISONE 5 MG TABS 1 po qod PREDNISONE 5 MG TABS 496570 PREDNISONE Inactive AMOXICILLIN 500 MG CAPS 2 po BID x 10 days AMOXICILLIN 500 MG CAPS 332066 AMOXICILLIN Inactive GLYBURIDE 5 MG TAB Take one by mouth daily GLYBURIDE 5 MG TAB 609964 GLYBURIDE Inactive AZITHROMYCIN 250 MG TABS 2 po qd x 1 day, then 1 po qd x 4 days AZITHROMYCIN 250 MG TABS 8545049 AZITHROMYCIN Inactive PREDNISONE 20 MG TAB 2 tabs daily for 3 days, 1 tab daily for 3 days, 1/2 tab daily for 2 days PREDNISONE 20 MG TAB 162102 PREDNISONE Inactive PREDNISONE 20 MG TAB 2 tabs daily for 5 days, then 1 daily for 5 days, then 0.5 for 4 days PREDNISONE 20 MG TAB 750608 PREDNISONE Inactive Immunizations Vaccine Administration Date Value [...] Description Lab Report: CBC W/DIFF - Hematology mean corpuscular volume, RBC 93 fL 80-97 platelet count 248 10^3/MM^3 10*3/mm3 934-397 6571/09/18 mean corpuscular hemoglobin, RBC 30.3 pg 27.0-31.2 mean corpuscular hemoglobin concentration, RBC 32.5 G/DL % 31.8- 35.4 red blood cell distribution width 14.8 % 11.6-14.8 leukocyte count, blood 11.1 10^3/MM^3 10*3/mm3 4.6-10.2 hematocrit, blood 39.6 % 41.0-53.0 neutrophils as percent of blood leukocytes 75.7 % 42.2-75.2 monocytes as percent of blood leukocytes 7.2 % 1.7-9.3 lymphocytes as percent of blood leukocytes 13.3 % 20.5-51.1 erythrocyte (RBC) count 4.25 10^6/MM^3 10*6/mm3 4.69-6.13 hemoglobin, blood 12.9 g/dL 13.5-17.5 Lab Report: CBC W/DIFF, Comp. Metabolic Panel - Chemistry sodium, serum 132 mmol/L 388-655 9066/10/26 carbon dioxide, venous blood 22.8 mmol/L 21.0-32.0 [...] Panel - Chemistry sodium, serum 139 mmol/L 818-529 1209/03/17 carbon dioxide, venous blood 29.0 mmol/L 21.0-32.0 [...] 65-110 urea nitrogen, blood 43 mg/dL 7-18 sodium, serum 136 mmol/L 078-775 0792/09/18 creatinine, serum 2.57 mg/dL 0.55-1.30 alanine aminotransferase (SGPT), serum 27 U/L 12-78 aspartate aminotransferase (SGOT), serum 18 U/L 15-37 calcium, serum 8.4 mg/dL 8.5-10.1 Lab Report: Comp. Metabolic Panel, HGBA1C - Chemistry calcium, serum 8.2 mg/dL 8.5-10.1 aspartate aminotransferase (SGOT), serum 12 U/L 15-37 alanine aminotransferase (SGPT), serum 22 U/L 12-78 creatinine, serum 2.40 mg/dL 0.60-1.30 blood glucose 199 mg/dL 65-110 carbon dioxide, venous blood 25.6 mmol/L 21.0-32.0 chloride, serum 105 mmol/L 98-107 potassium, serum 5.4 mmol/L 3.5-5.2 sodium, serum 139 mmol/L 647-655 5378/07/09 urea nitrogen, blood 47 mg/dL 7-18 bilirubin, serum, total 0.80 mg/dL 0.00-1.00 hemoglobin A1C, blood, as % of total hemoglobin 6.9 % 4.3-6.0 Lab Report: HGBA1C - Chemistry hemoglobin A1C, blood, as % of total hemoglobin 7.7 % 4.3-6.0 Lab Report: HGBA1C, Basic Metabolic Panel - Chemistry blood glucose 261 mg/dL 65-110 calcium, serum 9.0 mg/dL 8.5-10.1 urea nitrogen, blood 44 mg/dL -18 creatinine, serum 2.37 mg/dL 0.55-1.30 hemoglobin A1C, blood, as % of total hemoglobin 8.5 % 4.3-6.0 sodium, serum 137 mmol/L 736-456 1816/02/12 potassium, serum 5.1 mmol/L 3.5-5.2 chloride, serum 103 mmol/L 98-107 carbon dioxide, venous blood 24.4 mmol/L 21.0-32.0 Lab Report: Lipid Panel - Chemistry cholesterol, serum 139 mg/dL 181-651 3636/09/10 triglyceride, serum, fasting 176 mg/dL 30-200 HDL cholesterol, serum 45 mg/dL 32-96 LDL cholesterol, serum 59 mg/dL 0-130 Lab Report: MICROALBUMIN - Chemistry albumin/creatinine ratio, urine 30 - 300 mg/g mg/g{creat} 0-29 Lab Report: MICROALBUMIN - Lab microalbumin, urine 30 0-19 Encounters Code Encounter Date Provider Facility CPT-02544 Level 4 Est. Patient 09:17:32 FILM PRINTER Simon Castillo MD [facility] CPT-28205 Level 3 Est. Patient 11:22:22 FILM PRINTER Simon Castillo MD [facility] CPT-04187 Level 3 Est. Patient 09:02:14 CDT Simon Castillo MD [facility] CPT-05264 Level 4 Est. Patient 08:47:25 CDT Simon Castillo MD [facility] CPT-42024 Level 4 Est. Patient 10:17:25 CDT Simon Castillo MD [facility] CPT-07236 Level 4 Est. Patient 10:10:09 FILM PRINTER Simon Castillo MD [facility] CPT-56774 Level 4 Est. Patient 11:48:19 CDT Simon Castillo MD [facility] CPT-09115 Level 4 Est. Patient 08:59:29 CDT Simon Castillo MD [facility] CPT-65077 Level 4 Est. Patient 10:52:51 FILM PRINTER Simon Castillo MD [facility] CPT-81811 Level 4 Est. Patient 11:50:30 CDT Simon Castillo MD [facility] CPT-11010 Level 4 Est. Patient 09:54:46 CDT Simon Castillo MD [facility] CPT-05628 Level 3 Est. Patient 11:10:14 CDT Simon Castillo MD [facility] CPT-56010 Level 4 Est. Patient 09:44:02 CDT Simon Castillo MD [facility] CPT-40253 Level 3 Est. Patient 09:27:48 CDT Simon Castillo MD [facility] CPT-33121 Level 3 Est. Patient 09:58:06 FILM PRINTER Simon Castillo MD [facility] CPT-61609 Level 3 Est. Patient 09:51:35 CDT Simon Castillo MD [facility] Procedures Code Procedure Name Date Entry Date Standard Description CPT-22461 Venipuncture Draw Fee 13:33:02 CDT CPT-68853 Bone Density 09:37:49 FILM PRINTER CPT-37235 Fluzone High Dose 17:20:42 CDT CPT-32529 Prevnar 13 17:20:42 CDT CPT-78032 Administration 2+ single or combination vaccines inc oral 17:20:42 CDT CPT-50059 Administration single or combination vaccine inc oral 17 :20:42 CDT CPT-28645 Hand comp min 3V 09:24:38 CDT CPT-29548 Venipuncture Draw Fee 08:07:29 FILM PRINTER CPT-84869 Venipuncture Draw Fee 09:02:51 FILM PRINTER CPT-35646 Venipuncture Draw Fee 12:45:08 FILM PRINTER CPT-92690 Venipuncture Draw Fee 09:25:31 CDT CPT-G0008 Administration of Influenza Virus Vaccine 14:41:29 CDT CPT-66887 Fluzone High-Dose Intramuscular Suspension 14:41:29 CDT CPT-Cryo Cryotherapy 11:48:20 CDT CPT-66742 EKG Trac and Interp 09:21:58 CDT CPT-95429 Chest 2V Frontal and Lat 09:21:58 CDT CPT-Cryo Cryotherapy 10:54:51 FILM PRINTER CPT-37878 Administration 2+ single or combination vaccines inc oral 10:42:19 CDT CPT-24531 Administration single or combination vaccine inc oral 10 :42:19 CDT CPT-64392 Pneumovax 10:42:19 CDT CPT-08501 Influenza High Dose age 65+ 10:42:19 CDT CPT-24787 Administration single or combination vaccine inc oral 13 :18:54 CDT CPT-95480 Influenza High Dose age 65+ 13:18:54 CDT CPT-34158 Venipuncture Draw Fee 11:53:16 CDT CPT-08332 LS spine comp w obliq 11:03:13 CDT CPT-Cryo Cryotherapy 08:27:16 FILM PRINTER CPT-55512 Administration single or combination vaccine inc oral 10 :56:34 CDT CPT-38508 Influenza High Dose age 65+ 10:56:34 CDT
--- OUTSIDE RECORDS SUMMARY | 2018-03-31 17:31 | XMS REPORT | Clinical Summary ---
Author Author Admin, E Organization [employer] Address Unknown Phone Unavailable Allergies, Adverse Reactions, [...] urinary tract (LUTS) Bronchitis, acute 466.0 Resolved Siomn Castillo MD Acute bronchitis Tinea pedis 110.4 [...] bilateral ICD-729.5 Kerry Castillo MD Steroid use, local [employer] ICD-V58.65 Kerry Castillo MD Hand [...] MG ORAL TABS 1 po qd BUMETANIDE 79557366466 Active Simon Castillo MD Active AUGMENTIN 875-125 MG ORAL TABS 1 po BID x 10 days AMOXICILLIN-POT CLAVULANATE 55174034626 Active Simno Castillo MD Active PIOGLITAZONE HCL 30 MG ORAL TABS 1 po qd PIOGLITAZONE HCL 79442172953 Active Simon Castillo MD Active GLIMEPIRIDE 4 MG ORAL TABS 1 po BID GLIMEPIRIDE 64664422816 Active Simon Castillo MD Active ASPIRIN EC 81 MG ORAL TBEC 1 po qd ASPIRIN 76698554310 Active Simon Castillo MD Active CLOTRIMAZOLE 1 % EXT CREA Apply to affected area of feet twice daily PRN Rash CLOTRIMAZOLE 44529891885 No Longer Active Simon Castillo MD Active PREDNISONE 5 MG TAB 1 po BID PREDNISONE 48129341600 Active Simon Castillo MD Active FISH OIL 1000 MG CPDR 1 po BID OMEGA-3 FATTY ACIDS 27007489445 Active Simon Castillo MD Active LISINOPRIL 10 MG TABS 1 p qd LISINOPRIL 00034005595 Active Simon Castillo MD Active CLARITIN 10 MG TAB 1 tablet by mouth daily as needed for allergies LORATADINE 43645196379 No Longer Active Simon Castillo MD Active TRIAMCINOLONE ACETONIDE 0.1 % OINT Apply to affected areas TID for up to 2 weeks TRIAMCINOLONE ACETONIDE 35804858704 No Longer Active Simon Castillo MD Active LASIX 20 MG TAB 1 tablet by mouth daily x 2 days FUROSEMIDE 27968328882 No Longer Active Simon Castillo MD Active SULFASALAZINE 500 MG ORAL TBEC 2 tabs BID SULFASALAZINE 40124660677 No Longer Active Neto Oshea DO Active PREDNISONE 20 MG TAB 2 tabs daily for 3 days, 1 tab daily for 3 days, 1/2 tab daily for 2 days PREDNISONE 38830966012 No Longer Active Jillina Frazell [employer] Active PREDNISONE 20 MG TAB 1 tablet daily for airway inflammation 02/25 PREDNISONE 29072949144 No Longer Active Jillina Frazell [employer] Active AZITHROMYCIN 250 MG TABS 2 po qd x 1 day, then 1 po qd x 4 days AZITHROMYCIN 42816251748 No Longer Active Jillina Frazell [employer] Active HYDROCODONE-ACETAMINOPHEN 5-325 MG TABS 1 tab by mouth 8 hours as needed for pain HYDROCODONE-ACETAMINOPHEN 27038563064 Active Simon Castillo MD Active TRAMADOL HCL 50 MG TABS 1 po q6hr PRN Pain TRAMADOL HCL 91070584204 No Longer Active Simon Castillo MD Active PREDNISONE 5 MG TABS 1 po qod PREDNISONE 52063234520 No Longer Active Simon Castillo MD Active SYMBICORT 160-4.5 MCG/ACT AERO 2 puff BID BUDESONIDE- FORMOTEROL FUMARATE 57917164530 No Longer Active Simon Castillo MD Active FLONASE 50 MCG/ACT SUSP 2 puffs in each nostril daily FLUTICASONE PROPIONATE 19659797687 No Longer Active Simon Castillo MD Active PREDNISONE 20 MG TAB 2 tabs daily for 5 days, then 1 daily for 5 days PREDNISONE 72216814444 No Longer Active Simon Castillo MD Active PREDNISONE 20 MG TAB 2 tabs daily for 5 days, then 1 daily for 5 days, then 0.5 for 4 days PREDNISONE 91008139736 No Longer Active Simon Castillo MD Active PREDNISONE 20 MG TAB 2 tabs daily for 3 days, 1 tab daily for 3 days, 1/2 tab daily for 2 days PREDNISONE 37217397392 No Longer Active Simon Castillo MD Active AZITHROMYCIN 250 MG TABS 2 po qd x 1 day, then 1 po qd x 4 days AZITHROMYCIN 94418002189 No Longer Active Simon Castillo MD Active CARVEDILOL 6.25 MG TABS 1 po BID CARVEDILOL 93501251827 Active Simon Castillo MD Active LISINOPRIL-HYDROCHLOROTHIAZIDE 20-12.5 MG TABS 1/2 tab by mouth daily LISINOPRIL-HYDROCHLOROTHIAZIDE 75464499627 No Longer Active Simon Castillo MD Active TRAMADOL HCL 50 MG TABS 1-2 tablets every 6 hours as needed for pain TRAMADOL HCL 98609925601 Active Giles Tatum APRN Active PREDNISONE 5 MG TAB Take one po qod PREDNISONE 73216365289 No Longer Active Simon Castillo MD Active GLYBURIDE 5 MG TAB Take one by mouth daily GLYBURIDE 61697894230 No Longer Active Simon Castillo MD Active LEVAQUIN 750 MG TABS 1 po qod x 5 doses LEVOFLOXACIN 28001434690 No Longer Active Simon Castillo MD Active CETIRIZINE HCL 10 MG TABS 1 po qd as needed for allergies CETIRIZINE HCL 50028795758 No Longer Active Simon Castillo MD Active BILBERRY CAPS 1 tab daily BILBERRY (VACCINIUM MYRTILLUS) CAPS 41350396460 Active Simon Castillo MD Active ATENOLOL 50 MG TABS Take one by mouth daily ATENOLOL 88887918482 No Longer Active Simon Castillo MD Active FLONASE 50 MCG/ACT SUSP 2 puffs in each nostril daily FLUTICASONE PROPIONATE 09042194503 No Longer Active Simon Castillo MD Active GLYBURIDE 5 MG TAB Take one by mouth daily GLYBURIDE 03562779164 No Longer Active Simon Castillo MD Active SYMBICORT 80-4.5 MCG/ACT AERO 2 puffs twice a day BUDESONIDE-FORMOTEROL FUMARATE 27952577983 No Longer Active Simon Castillo MD Active PREDNISONE 20 MG TAB 2 tabs daily for 4 days, 1 tab daily for 4 days, 1/2 tab daily for 4 days PREDNISONE 40854633821 No Longer Active Simon Castillo MD Active AMOXICILLIN 500 MG CAPS 2 po BID x 10 days AMOXICILLIN 26854282082 No Longer Active Simon Castillo MD Active METFORMIN HCL 1000 MG TABS 1 by mounth twice a day METFORMIN HCL 98969201747 No Longer Active Simon Castillo MD Active LUTEIN-ZEAXANTHIN 6-1 MG TABS Take 2 by mouth daily LUTEIN-ZEAXANTHIN 43332509076 Active Simon Castillo MD Active IBUPROFEN 800 MG TABS Take 1 tab every 6 hrs prn IBUPROFEN 61626145889 No Longer Active Simon Castillo MD Active GLYBURIDE 2.5 MG TABS Take one by mouth daily GLYBURIDE 87074626682 No Longer Active Simon Castillo MD Active LANCETS MISC 2 qd LANCETS 08256931022 Active Pamela Conde Active ACACIA CONTOUR TEST STRP Use with testing twice daily GLUCOSE BLOOD 32632654654 Active Simon Castillo MD Active GLYBURIDE 2.5 MG TABS Take one by mouth daily GLYBURIDE 2.5 MG TABS 752659 GLYBURIDE Inactive PREDNISONE 20 MG TAB 2 tabs daily for 4 days, 1 tab daily for 4 days, 1/2 tab daily for 4 days PREDNISONE 20 MG TAB 720541 PREDNISONE Inactive SYMBICORT 80-4.5 MCG/ACT AERO 2 puffs twice a day SYMBICORT 80-4.5 MCG/ACT AERO BUDESONIDE-FORMOTEROL FUMARATE Inactive FLONASE 50 MCG/ACT SUSP 2 puffs in each nostril daily FLONASE 50 MCG/ACT SUSP 9146731 FLUTICASONE PROPIONATE Inactive ATENOLOL 50 MG TABS Take one by mouth daily ATENOLOL 50 MG TABS 473606 ATENOLOL Inactive CETIRIZINE HCL 10 MG TABS 1 po qd as needed for allergies CETIRIZINE HCL 10 MG TABS 0146617 CETIRIZINE HCL Inactive LEVAQUIN 750 MG TABS 1 po qod x 5 doses LEVAQUIN 750 MG TABS 133626 LEVOFLOXACIN Inactive GLYBURIDE 5 MG TAB Take one by mouth daily GLYBURIDE 5 MG TAB 376240 GLYBURIDE Inactive PREDNISONE 5 MG TAB Take one po qod PREDNISONE 5 MG TAB 462183 PREDNISONE Inactive PREDNISONE 20 MG TAB 2 tabs daily for 5 days, then 1 daily for 5 days PREDNISONE 20 MG TAB 850865 PREDNISONE Inactive FLONASE 50 MCG/ACT SUSP 2 puffs in each nostril daily FLONASE 50 MCG/ACT SUSP 7981658 FLUTICASONE PROPIONATE Inactive SYMBICORT 160-4.5 MCG/ACT AERO 2 puff BID SYMBICORT 160-4.5 MCG/ACT AERO BUDESONIDE-FORMOTEROL FUMARATE Inactive PREDNISONE 5 MG TABS 1 po qod PREDNISONE 5 MG TABS 383800 PREDNISONE Inactive PREDNISONE 20 MG TAB 1 tablet daily for airway inflammation 02/25 PREDNISONE 20 MG TAB 219859 PREDNISONE Inactive SULFASALAZINE 500 MG ORAL TBEC 2 tabs BID SULFASALAZINE 500 MG ORAL [facility] 155874 SULFASALAZINE Inactive LASIX 20 MG TAB 1 tablet by mouth daily x 2 days LASIX 20 MG TAB 567240 FUROSEMIDE Inactive CLARITIN 10 MG TAB 1 tablet by mouth daily as needed for allergies CLARITIN 10 MG TAB 019234 LORATADINE Inactive CLOTRIMAZOLE 1 % EXT CREA Apply to affected area of feet twice daily PRN Rash CLOTRIMAZOLE 1 % EXT CREA 439144 CLOTRIMAZOLE Inactive AMOXICILLIN 500 MG CAPS 2 po BID x 10 days AMOXICILLIN 500 MG CAPS 159876 AMOXICILLIN Inactive GLYBURIDE 5 MG TAB Take one by mouth daily GLYBURIDE 5 MG TAB 599118 GLYBURIDE Inactive AZITHROMYCIN 250 MG TABS 2 po qd x 1 day, then 1 po qd x 4 days AZITHROMYCIN 250 MG TABS 3737489 AZITHROMYCIN Inactive PREDNISONE 20 MG TAB 2 tabs daily for 3 days, 1 tab daily for 3 days, 1/2 tab daily for 2 days PREDNISONE 20 MG TAB 704170 PREDNISONE Inactive PREDNISONE 20 MG TAB 2 tabs daily for 5 days, then 1 daily for 5 days, then 0.5 for 4 days PREDNISONE 20 MG TAB 635884 PREDNISONE Inactive AZITHROMYCIN 250 MG TABS 2 po qd x 1 day, then 1 po qd x 4 days AZITHROMYCIN 250 MG TABS 7446851 AZITHROMYCIN Inactive PREDNISONE 20 MG TAB 2 tabs daily for 3 days, 1 tab daily for 3 days, 1/2 tab daily for 2 days PREDNISONE 20 MG TAB 071222 PREDNISONE Inactive TRIAMCINOLONE ACETONIDE 0.1 % OINT Apply to affected areas TID for up to 2 weeks TRIAMCINOLONE ACETONIDE 0.1 % OINT 2308487 TRIAMCINOLONE ACETONIDE Inactive Immunizations Vaccine Administration Date [...] Panel - Chemistry sodium, serum 140 mmol/L 718-784 0103/07/13 carbon dioxide, venous blood 23.7 mmol/L 21.0-32.0 [...] Panel - Chemistry cholesterol, serum 126 mg/dL 106-137 1420/02/07 triglyceride, serum, fasting 83 mg/dL 30-200 HDL cholesterol, serum 70 mg/dL 32-96 LDL cholesterol, serum 39 mg/dL 0-130 hemoglobin A1C, blood, as % of total hemoglobin 8.3 % 4.3-6.0 sodium, serum 141 mmol/L 554-744 8360/02/07 carbon dioxide, venous blood 26.0 mmol/L 21.0-32.0 [...] 0.00-1.00 Encounters Code Encounter Date Provider Facility CPT-64679 Level 4 Est. Patient 08:48:38 CDT Simon Castillo MD [facility] CPT-00931 Level 4 Est. Patient 09:54:08 CDT Simon Castillo MD [facility] CPT-82690 Level 4 Est. Patient 16:11:23 CDT Simon Castillo MD [facility] CPT-27402 Level 4 Est. Patient 09:29:28 [employer] Simon Castillo MD [facility] CPT-98660 Level 3 Est. Patient 09:18:25 CDT Simon Castillo MD [facility] CPT-42148 Level 4 Est. Patient 11:51:23 CDT Simon Castillo MD [facility] CPT-76832 Level 4 Est. Patient 14:32:04 CDT Neto Oshea DO [facility] CPT-56080 Level 3 Est. Patient 08:41:43 CDT Giles Tatum [facility] CPT-73375 Level 3 Est. Patient 08:40:53 CDT Giles Tatum [facility] CPT-25284 Level 3 Est. Patient 08:36:52 CDT Giles Tatum [facility] CPT-62790 Level 3 Est. Patient 09:08:44 CDT Giles Nashtico [facility] CPT-64036 Level 4 Est. Patient 09:17:32 [employer] Simon Castillo MD [facility] CPT-44670 Level 3 Est. Patient 11:22:22 [employer] Simon Castillo MD [facility] CPT-15687 Level 3 Est. Patient 09:02:14 CDT Simon Castillo MD [facility] CPT-29892 Level 4 Est. Patient 08:47:25 CDT Simon Castillo MD [facility] CPT-89077 Level 4 Est. Patient 10:17:25 CDT Simon Castillo MD [facility] CPT-38799 Level 4 Est. Patient 10:10:09 [employer] Simon Castillo MD [facility] CPT-19985 Level 4 Est. Patient 11:48:19 CDT Simon Castillo MD [facility] CPT-56882 Level 4 Est. Patient 08:59:29 CDT Simon Castillo MD [facility] CPT-62341 Level 4 Est. Patient 10:52:51 [employer] Simon Castillo MD [facility] CPT-28014 Level 4 Est. Patient 11:50:30 CDT Simon Castillo MD [facility] CPT-76022 Level 4 Est. Patient 09:54:46 CDT Simon Castillo MD [facility] CPT-83131 Level 3 Est. Patient 11:10:14 CDT Simon Castillo MD [facility] CPT-16975 Level 4 Est. Patient 09:44:02 CDT Simon Castillo MD [facility] CPT-59351 Level 3 Est. Patient 09:27:48 CDT Simon Castillo MD [facility] CPT-59705 Level 3 Est. Patient 09:58:06 [employer] Simon Castillo MD [facility] CPT-19854 Level 3 Est. Patient 09:51:35 CDT Simon Castillo MD [facility] Procedures Code Procedure Name Date Entry Date Standard Description CPT-G0439 Subsequent Annual Wellness Exam 09:41:17 CDT CPT-27771 Lipid - LAB USE ONLY 17:15:33 CDT CPT-13133 HGBA1C - LAB USE ONLY 17:15:33 CDT CPT-58470 CMP - LAB USE ONLY 17:15:33 CDT CPT-31229 Venipuncture Draw Fee 17:15:33 CDT CPT-[facility] Transitional Care Mgmt-High 11:01:28 [employer] CPT-17266 First Vx - Ix admin for Medicare patients 17:33:39 CDT CPT-35814 Fluzone High-Dose Intramuscular Suspension 17:33:39 CDT CPT-G0438 Initial Annual Wellness Exam 08:57:30 CDT CPT-33075 Chest 2V Frontal and Lat - XRAY USE ONLY 09:00:14 CDT CPT-92379 Venipuncture Draw Fee 13:33:02 CDT CPT-40489 Bone Density 09:37:49 [employer] CPT-33444 Fluzone High Dose 17:20:42 CDT CPT-33330 Prevnar 13 17:20:42 CDT CPT-41742 Administration 2+ single or combination vaccines inc oral 17:20:42 CDT CPT-09309 Administration single or combination vaccine inc oral 17 :20:42 CDT CPT-72282 Hand comp min 3V 09:24:38 CDT CPT-99011 Venipuncture Draw Fee 08:07:29 [employer] CPT-99761 Venipuncture Draw Fee 09:02:51 [employer] CPT-03952 Venipuncture Draw Fee 12:45:08 [employer] CPT-04197 Venipuncture Draw Fee 09:25:31 CDT CPT-G0008 Administration of Influenza Virus Vaccine 14:41:29 CDT CPT-88349 Fluzone High-Dose Intramuscular Suspension 14:41:29 CDT CPT-Cryo Cryotherapy 11:48:20 CDT CPT-11760 EKG Trac and Interp 09:21:58 CDT CPT-99254 Chest 2V Frontal and Lat 09:21:58 CDT CPT-Cryo Cryotherapy 10:54:51 [employer] CPT-06137 Administration 2+ single or combination vaccines inc oral 10:42:19 CDT CPT-95641 Administration single or combination vaccine inc oral 10 :42:19 CDT CPT-80095 Pneumovax 10:42:19 CDT CPT-17618 Influenza High Dose age 65+ 10:42:19 CDT CPT-53527 Administration single or combination vaccine inc oral 13 :18:54 CDT CPT-34092 Influenza High Dose age 65+ 13:18:54 CDT CPT-66243 Venipuncture Draw Fee 11:53:16 CDT CPT-74913 LS spine comp w obliq 11:03:13 CDT CPT-Cryo Cryotherapy 08:27:16 [employer] CPT-01840 Administration single or combination vaccine inc oral 10 :56:34 CDT CPT-32937 Influenza High Dose age 65+ 10:56:34 CDT
--- OUTSIDE RECORDS SUMMARY | 2018-03-31 17:32 | XMS REPORT | Clinical Summary ---
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 Inactive Simon Castillo MD Pharyngitis ICD-462 Inactive Simon Castillo MD Dyspnea ICD-786.09 Inactive Simon Castillo MD 2017 /02/08 Peripheral edema ICD-782.3 Inactive Simon Castillo MD Hand pain, bilateral ICD-729.5 Inactive Simon Castillo MD Steroid use, chcf ICD-V58.65 Inactive Simon Castillo MD Pneumonia, right lower lobe ICD-486 Inactive Simon Castillo MD Medication List Medication Instructions Start Date Stop Date Generic Name NDC Status Provider Patient Instruction PIOGLITAZONE HCL 30 MG ORAL TABS 1 po qd PIOGLITAZONE HCL 02280184473 Active Simon Castillo MD Active GLIMEPIRIDE 4 MG ORAL TABS 1 po BID GLIMEPIRIDE 88707894984 Active Simon Castillo MD Active ASPIRIN EC 81 MG ORAL TBEC 1 po qd ASPIRIN 81021242973 Active Simon Castillo MD Active CLOTRIMAZOLE 1 % EXT CREA Apply to affected area of feet twice daily PRN Rash CLOTRIMAZOLE 32601096153 No Longer Active Simon Castillo MD Active PREDNISONE 5 MG TAB 1 po BID PREDNISONE 73748304106 Active Simon Castillo MD Active FISH OIL 1000 MG CPDR 1 po BID OMEGA-3 FATTY ACIDS 92088827056 Active Simon Castillo MD Active LISINOPRIL 10 MG TABS 1 p qd LISINOPRIL 39791519023 Active Simon Castillo MD Active CLARITIN 10 MG TAB 1 tablet by mouth daily as needed for allergies LORATADINE 47778055707 No Longer Active Simon Castillo MD Active TRIAMCINOLONE ACETONIDE 0.1 % OINT Apply to affected areas TID for up to 2 weeks TRIAMCINOLONE ACETONIDE 79087824078 No Longer Active Simon Castillo MD Active LASIX 20 MG TAB 1 tablet by mouth daily x 2 days FUROSEMIDE 67254714620 No Longer Active Simon Castillo MD Active SULFASALAZINE 500 MG ORAL TBEC 2 tabs BID SULFASALAZINE 54339837836 No Longer Active Neto Oshea DO Active PREDNISONE 20 MG TAB 2 tabs daily for 3 days, 1 tab daily for 3 days, 1/2 tab daily for 2 days PREDNISONE 70787256725 No Longer Active Jillina Frazell RECORDIST CHIEF Active PREDNISONE 20 MG TAB 1 tablet daily for airway inflammation 02/25 PREDNISONE 63445048157 No Longer Active Jillina Frazell RECORDIST CHIEF Active AZITHROMYCIN 250 MG TABS 2 po qd x 1 day, then 1 po qd x 4 days AZITHROMYCIN 44542604289 No Longer Active Jillina Frazell RECORDIST CHIEF Active HYDROCODONE-ACETAMINOPHEN 5-325 MG TABS 1 tab by mouth 8 hours as needed for pain HYDROCODONE-ACETAMINOPHEN 78081682053 Active Simon Castillo MD Active TRAMADOL HCL 50 MG TABS 1 po q6hr PRN Pain TRAMADOL HCL 60708518243 No Longer Active Simon Castillo MD Active PREDNISONE 5 MG TABS 1 po qod PREDNISONE 03054613181 No Longer Active Simon Castillo MD Active SYMBICORT 160-4.5 MCG/ACT AERO 2 puff BID BUDESONIDE- FORMOTEROL FUMARATE 85084947137 No Longer Active Simon Castillo MD Active FLONASE 50 MCG/ACT SUSP 2 puffs in each nostril daily FLUTICASONE PROPIONATE 41038188342 No Longer Active Simon Castillo MD Active PREDNISONE 20 MG TAB 2 tabs daily for 5 days, then 1 daily for 5 days PREDNISONE 74748716057 No Longer Active Simon Castillo MD Active PREDNISONE 20 MG TAB 2 tabs daily for 5 days, then 1 daily for 5 days, then 0.5 for 4 days PREDNISONE 68743431898 No Longer Active Simon Castillo MD Active PREDNISONE 20 MG TAB 2 tabs daily for 3 days, 1 tab daily for 3 days, 1/2 tab daily for 2 days PREDNISONE 15271388945 No Longer Active Simon Castillo MD Active AZITHROMYCIN 250 MG TABS 2 po qd x 1 day, then 1 po qd x 4 days AZITHROMYCIN 22095507963 No Longer Active Simon Castillo MD Active CARVEDILOL 6.25 MG TABS 1 po BID CARVEDILOL 09953383209 Active Simon Castillo MD Active LISINOPRIL-HYDROCHLOROTHIAZIDE 20-12.5 MG TABS 1/2 tab by mouth daily LISINOPRIL-HYDROCHLOROTHIAZIDE 23546092485 No Longer Active Simon Castillo MD Active TRAMADOL HCL 50 MG TABS 1-2 tablets every 6 hours as needed for pain TRAMADOL HCL 31239718263 Active Giles Tatum APRN Active PREDNISONE 5 MG TAB Take one po qod PREDNISONE 51541776947 No Longer Active Simon Castillo MD Active GLYBURIDE 5 MG TAB Take one by mouth daily GLYBURIDE 37678747695 No Longer Active Simon Castillo MD Active LEVAQUIN 750 MG TABS 1 po qod x 5 doses LEVOFLOXACIN 37029016989 No Longer Active Simon Castillo MD Active CETIRIZINE HCL 10 MG TABS 1 po qd as needed for allergies CETIRIZINE HCL 54646723292 No Longer Active Simon Castillo MD Active BILBERRY CAPS 1 tab daily BILBERRY (VACCINIUM MYRTILLUS) CAPS 38894057482 Active Simon Castillo MD Active ATENOLOL 50 MG TABS Take one by mouth daily ATENOLOL 58640862609 No Longer Active Simon Castillo MD Active FLONASE 50 MCG/ACT SUSP 2 puffs in each nostril daily FLUTICASONE PROPIONATE 42964861527 No Longer Active Simon Castillo MD Active GLYBURIDE 5 MG TAB Take one by mouth daily GLYBURIDE 26836982194 No Longer Active Simon Castillo MD Active SYMBICORT 80-4.5 MCG/ACT AERO 2 puffs twice a day BUDESONIDE-FORMOTEROL FUMARATE 91708278242 No Longer Active Simon Castillo MD Active PREDNISONE 20 MG TAB 2 tabs daily for 4 days, 1 tab daily for 4 days, 1/2 tab daily for 4 days PREDNISONE 80656438806 No Longer Active Simon Castillo MD Active AMOXICILLIN 500 MG CAPS 2 po BID x 10 days AMOXICILLIN 15836243540 No Longer Active Simon Castillo MD Active METFORMIN HCL 1000 MG TABS 1 by mounth twice a day METFORMIN HCL 15949258504 No Longer Active Simon Castillo MD Active LUTEIN-ZEAXANTHIN 6-1 MG TABS Take 2 by mouth daily LUTEIN-ZEAXANTHIN 30352799056 Active Simon Castillo MD Active IBUPROFEN 800 MG TABS Take 1 tab every 6 hrs prn IBUPROFEN 99091377840 No Longer Active Simon Castillo MD Active GLYBURIDE 2.5 MG TABS Take one by mouth daily GLYBURIDE 31344691272 No Longer Active Simon Castillo MD Active LANCETS MISC 2 qd LANCETS 88696862700 Active Pamela Conde Active ACACIA CONTOUR TEST STRP Use with testing twice daily GLUCOSE BLOOD 41620140450 Active Simon Castillo MD Active GLYBURIDE 2.5 MG TABS Take one by mouth daily GLYBURIDE 2.5 MG TABS 470489 GLYBURIDE Inactive PREDNISONE 20 MG TAB 2 tabs daily for 4 days, 1 tab daily for 4 days, 1/2 tab daily for 4 days PREDNISONE 20 MG TAB 555277 PREDNISONE Inactive SYMBICORT 80-4.5 MCG/ACT AERO 2 puffs twice a day SYMBICORT 80-4.5 MCG/ACT AERO BUDESONIDE-FORMOTEROL FUMARATE Inactive FLONASE 50 MCG/ACT SUSP 2 puffs in each nostril daily FLONASE 50 MCG/ACT SUSP 4449665 FLUTICASONE PROPIONATE Inactive ATENOLOL 50 MG TABS Take one by mouth daily ATENOLOL 50 MG TABS 575003 ATENOLOL Inactive CETIRIZINE HCL 10 MG TABS 1 po qd as needed for allergies CETIRIZINE HCL 10 MG TABS 7329201 CETIRIZINE HCL Inactive LEVAQUIN 750 MG TABS 1 po qod x 5 doses LEVAQUIN 750 MG TABS 591765 LEVOFLOXACIN Inactive GLYBURIDE 5 MG TAB Take one by mouth daily GLYBURIDE 5 MG TAB 063553 GLYBURIDE Inactive PREDNISONE 5 MG TAB Take one po qod PREDNISONE 5 MG TAB 569219 PREDNISONE Inactive PREDNISONE 20 MG TAB 2 tabs daily for 5 days, then 1 daily for 5 days PREDNISONE 20 MG TAB 548623 PREDNISONE Inactive FLONASE 50 MCG/ACT SUSP 2 puffs in each nostril daily FLONASE 50 MCG/ACT SUSP 7400504 FLUTICASONE PROPIONATE Inactive SYMBICORT 160-4.5 MCG/ACT AERO 2 puff BID SYMBICORT 160-4.5 MCG/ACT AERO BUDESONIDE-FORMOTEROL FUMARATE Inactive PREDNISONE 5 MG TABS 1 po qod PREDNISONE 5 MG TABS 278357 PREDNISONE Inactive PREDNISONE 20 MG TAB 1 tablet daily for airway inflammation 02/25 PREDNISONE 20 MG TAB 110697 PREDNISONE Inactive SULFASALAZINE 500 MG ORAL TBEC 2 tabs BID SULFASALAZINE 500 MG ORAL TBEC 973546 SULFASALAZINE Inactive LASIX 20 MG TAB 1 tablet by mouth daily x 2 days LASIX 20 MG TAB 527193 FUROSEMIDE Inactive CLARITIN 10 MG TAB 1 tablet by mouth daily as needed for allergies CLARITIN 10 MG TAB 707863 LORATADINE Inactive CLOTRIMAZOLE 1 % EXT CREA Apply to affected area of feet twice daily PRN Rash CLOTRIMAZOLE 1 % EXT CREA 311113 CLOTRIMAZOLE Inactive AMOXICILLIN 500 MG CAPS 2 po BID x 10 days AMOXICILLIN 500 MG CAPS 413908 AMOXICILLIN Inactive GLYBURIDE 5 MG TAB Take one by mouth daily GLYBURIDE 5 MG TAB 329894 GLYBURIDE Inactive AZITHROMYCIN 250 MG TABS 2 po qd x 1 day, then 1 po qd x 4 days AZITHROMYCIN 250 MG TABS 7608732 AZITHROMYCIN Inactive PREDNISONE 20 MG TAB 2 tabs daily for 3 days, 1 tab daily for 3 days, 1/2 tab daily for 2 days PREDNISONE 20 MG TAB 288779 PREDNISONE Inactive PREDNISONE 20 MG TAB 2 tabs daily for 5 days, then 1 daily for 5 days, then 0.5 for 4 days PREDNISONE 20 MG TAB 509093 PREDNISONE Inactive AZITHROMYCIN 250 MG TABS 2 po qd x 1 day, then 1 po qd x 4 days AZITHROMYCIN 250 MG TABS 4289468 AZITHROMYCIN Inactive PREDNISONE 20 MG TAB 2 tabs daily for 3 days, 1 tab daily for 3 days, 1/2 tab daily for 2 days PREDNISONE 20 MG TAB 460804 PREDNISONE Inactive TRIAMCINOLONE ACETONIDE 0.1 % OINT Apply to affected areas TID for up to 2 weeks TRIAMCINOLONE ACETONIDE 0.1 % OINT 8435841 TRIAMCINOLONE ACETONIDE Inactive Immunizations Vaccine Administration Date [...] Panel - Chemistry cholesterol, serum 126 mg/dL 609-946 9968/02/07 triglyceride, serum, fasting 83 mg/dL 30-200 HDL cholesterol, serum 70 mg/dL 32-96 LDL cholesterol, serum 39 mg/dL 0-130 hemoglobin A1C, blood, as % of total hemoglobin 8.3 % 4.3-6.0 sodium, serum 141 mmol/L 829-366 6730/02/07 carbon dioxide, venous blood 26.0 mmol/L 21.0-32.0 [...] 0.00-1.00 Encounters Code Encounter Date Provider Facility CPT-10445 Level 4 Est. Patient 09:54:08 CDT Simon Castillo MD [facility] CPT-15658 Level 4 Est. Patient 16:11:23 CDT Simon Castillo MD [facility] CPT-35100 Level 4 Est. Patient 09:29:28 NUCLEAR CONTROL ROOM OPERATOR Simon Castillo MD [facility] CPT-15820 Level 3 Est. Patient 09:18:25 CDT Simon Castillo MD [facility] CPT-23782 Level 4 Est. Patient 11:51:23 CDT Simon Castillo MD [facility] CPT-30737 Level 4 Est. Patient 14:32:04 CDT Neto Oshea DO [facility] CPT-20649 Level 3 Est. Patient 08:41:43 CDT Giles Tatum [facility] CPT-62006 Level 3 Est. Patient 08:40:53 CDT Giles Salcidol [facility] CPT-01107 Level 3 Est. Patient 08:36:52 CDT Giles Salcidol [facility] CPT-10002 Level 3 Est. Patient 09:08:44 CDT Giles Salcidol [facility] CPT-94714 Level 4 Est. Patient 09:17:32 NUCLEAR CONTROL ROOM OPERATOR Simon Castillo MD [facility] CPT-35437 Level 3 Est. Patient 11:22:22 NUCLEAR CONTROL ROOM OPERATOR Simon Castillo MD [facility] CPT-10797 Level 3 Est. Patient 09:02:14 CDT Simon Castillo MD [facility] CPT-15751 Level 4 Est. Patient 08:47:25 CDT Simon Castillo MD [facility] CPT-13551 Level 4 Est. Patient 10:17:25 CDT Simon Castillo MD [facility] CPT-23404 Level 4 Est. Patient 10:10:09 NUCLEAR CONTROL ROOM OPERATOR Simon Castillo MD [facility] CPT-09834 Level 4 Est. Patient 11:48:19 CDT Simon Castillo MD [facility] CPT-19815 Level 4 Est. Patient 08:59:29 CDT Simon Castillo MD [facility] CPT-11519 Level 4 Est. Patient 10:52:51 NUCLEAR CONTROL ROOM OPERATOR Simon Castillo MD [facility] CPT-87756 Level 4 Est. Patient 11:50:30 CDT Simon Castillo MD [facility] CPT-66536 Level 4 Est. Patient 09:54:46 CDT Simon Castillo MD [facility] CPT-03196 Level 3 Est. Patient 11:10:14 CDT Simon Castillo MD [facility] CPT-85695 Level 4 Est. Patient 09:44:02 CDT Simon Castillo MD [facility] CPT-92987 Level 3 Est. Patient 09:27:48 CDT Simon Castillo MD [facility] CPT-08533 Level 3 Est. Patient 09:58:06 NUCLEAR CONTROL ROOM OPERATOR Simon Castillo MD [facility] CPT-89823 Level 3 Est. Patient 09:51:35 CDT Simon Castillo MD [facility] Procedures Code Procedure Name Date Entry Date Standard Description CPT-G0439 Subsequent Annual Wellness Exam 09:41:17 CDT CPT-47069 Lipid - LAB USE ONLY 17:15:33 CDT CPT-11659 HGBA1C - LAB USE ONLY 17:15:33 CDT CPT-02940 CMP - LAB USE ONLY 17:15:33 CDT CPT-94634 Venipuncture Draw Fee 17:15:33 CDT CPT-[facility] Transitional Care Mgmt-High 11:01:28 NUCLEAR CONTROL ROOM OPERATOR CPT-76929 First Vx - Ix admin for Medicare patients 17:33:39 CDT CPT-63151 Fluzone High-Dose Intramuscular Suspension 17:33:39 CDT CPT-G0438 Initial Annual Wellness Exam 08:57:30 CDT CPT-95211 Chest 2V Frontal and Lat - XRAY USE ONLY 09:00:14 CDT CPT-65694 Venipuncture Draw Fee 13:33:02 CDT CPT-29971 Bone Density 09:37:49 NUCLEAR CONTROL ROOM OPERATOR CPT-71405 Fluzone High Dose 17:20:42 CDT CPT-36335 Prevnar 13 17:20:42 CDT CPT-29891 Administration 2+ single or combination vaccines inc oral 17:20:42 CDT CPT-21474 Administration single or combination vaccine inc oral 17 :20:42 CDT CPT-10717 Hand comp min 3V 09:24:38 CDT CPT-50487 Venipuncture Draw Fee 08:07:29 NUCLEAR CONTROL ROOM OPERATOR CPT-69892 Venipuncture Draw Fee 09:02:51 NUCLEAR CONTROL ROOM OPERATOR CPT-29734 Venipuncture Draw Fee 12:45:08 NUCLEAR CONTROL ROOM OPERATOR CPT-07981 Venipuncture Draw Fee 09:25:31 CDT CPT-G0008 Administration of Influenza Virus Vaccine 14:41:29 CDT CPT-91611 Fluzone High-Dose Intramuscular Suspension 14:41:29 CDT CPT-Cryo Cryotherapy 11:48:20 CDT CPT-28197 EKG Trac and Interp 09:21:58 CDT CPT-48595 Chest 2V Frontal and Lat 09:21:58 CDT CPT-Cryo Cryotherapy 10:54:51 NUCLEAR CONTROL ROOM OPERATOR CPT-61905 Administration 2+ single or combination vaccines inc oral 10:42:19 CDT CPT-59025 Administration single or combination vaccine inc oral 10 :42:19 CDT CPT-72287 Pneumovax 10:42:19 CDT CPT-63628 Influenza High Dose age 65+ 10:42:19 CDT CPT-53013 Administration single or combination vaccine inc oral 13 :18:54 CDT CPT-31985 Influenza High Dose age 65+ 13:18:54 CDT CPT-69118 Venipuncture Draw Fee 11:53:16 CDT CPT-69676 LS spine comp w obliq 11:03:13 CDT CPT-Cryo Cryotherapy 08:27:16 NUCLEAR CONTROL ROOM OPERATOR CPT-45274 Administration single or combination vaccine inc oral 10 :56:34 CDT CPT-99764 Influenza High Dose age 65+ 10:56:34 CDT
--- OUTSIDE RECORDS SUMMARY | 2018-03-31 17:33 | XMS REPORT | Clinical Summary ---
Author Author Admin, RAFFI Salazar VasSol Address Unknown Phone Unavailable Allergies, Adverse Reactions, [...] ICD-729.5 Inactive Simon Castillo MD Steroid use, [facility] ICD-V58.65 Inactive Simon Castillo MD Hand pain, bilateral ICD-729.5 Inactive Simon Castillo MD Medication List Medication Instructions Start Date Stop Date Generic Name NDC Status Provider Patient Instruction GLIMEPIRIDE 2 MG ORAL TABS 1 po q a.m. GLIMEPIRIDE 28841663898 Active Simon Castillo MD Active HYDROCODONE-ACETAMINOPHEN 5-325 MG TABS 1 tab by mouth 8 hours as needed for pain HYDROCODONE-ACETAMINOPHEN 18977823817 Active Simon Castillo MD Active TRAMADOL HCL 50 MG TABS 1 po q6hr PRN Pain TRAMADOL HCL 78295359667 No Longer Active Simon Castillo MD Active PREDNISONE 5 MG TAB 1-2 tabs daily for rheumatoid arthritis PREDNISONE 42328175342 Active Simon Castillo MD Active PREDNISONE 5 MG TABS 1 po qod PREDNISONE 30224198328 No Longer Active Simon Castillo MD Active SYMBICORT 160-4.5 MCG/ACT AERO 2 puff BID BUDESONIDE- FORMOTEROL FUMARATE 38789817784 No Longer Active Simon Castillo MD Active FLONASE 50 MCG/ACT SUSP 2 puffs in each nostril daily FLUTICASONE PROPIONATE 57856985453 No Longer Active Simon Castillo MD Active PREDNISONE 20 MG TAB 2 tabs daily for 5 days, then 1 daily for 5 days PREDNISONE 25355224775 No Longer Active Simon Castillo MD Active PREDNISONE 20 MG TAB 2 tabs daily for 5 days, then 1 daily for 5 days, then 0.5 for 4 days PREDNISONE 45804923054 No Longer Active Simon Castillo MD Active CLOTRIMAZOLE 1 % EXT CREA Apply to affected area of feet twice daily PRN Rash CLOTRIMAZOLE 56880371851 Active Simon Castillo MD Active PREDNISONE 20 MG TAB 2 tabs daily for 3 days, 1 tab daily for 3 days, 1/2 tab daily for 2 days PREDNISONE 81410534019 No Longer Active Simon Castillo MD Active AZITHROMYCIN 250 MG TABS 2 po qd x 1 day, then 1 po qd x 4 days AZITHROMYCIN 81377627858 No Longer Active Simon Castillo MD Active LISINOPRIL 10 MG TABS 1 tablet by mouth daily LISINOPRIL 23785618140 Active Simon Castillo MD Active CARVEDILOL 6.25 MG TABS 1 po BID CARVEDILOL 04883057794 Active Simon Castillo MD Active LISINOPRIL-HYDROCHLOROTHIAZIDE 20-12.5 MG TABS 1/2 tab by mouth daily LISINOPRIL-HYDROCHLOROTHIAZIDE 86014627286 No Longer Active Simon Castillo MD Active TRAMADOL HCL 50 MG TABS 1-2 tablets every 6 hours as needed for pain TRAMADOL HCL 20072396624 Active Simon Castillo MD Active PREDNISONE 5 MG TAB Take one po qod PREDNISONE 37825816657 No Longer Active Simon Castillo MD Active GLYBURIDE 5 MG TAB Take one by mouth daily GLYBURIDE 60524456553 No Longer Active Simon Castillo MD Active LEVAQUIN 750 MG TABS 1 po qod x 5 doses LEVOFLOXACIN 66148560297 No Longer Active Simon Castillo MD Active CETIRIZINE HCL 10 MG TABS 1 po qd as needed for allergies CETIRIZINE HCL 41437575304 No Longer Active Simon Castillo MD Active FISH OIL 1000 MG CPDR 1 pill by mouth twice daily for cholesterol OMEGA -3 FATTY ACIDS 94168878235 Active Simon Castillo MD Active BILBERRY CAPS 1 tab daily BILBERRY (VACCINIUM MYRTILLUS) CAPS 41858749220 Active Simon Castillo MD Active ATENOLOL 50 MG TABS Take one by mouth daily ATENOLOL 07352706888 No Longer Active Simon Castillo MD Active FLONASE 50 MCG/ACT SUSP 2 puffs in each nostril daily FLUTICASONE PROPIONATE 07892804816 No Longer Active Simon Castillo MD Active GLYBURIDE 5 MG TAB Take one by mouth daily GLYBURIDE 17160925110 No Longer Active Simon Castillo MD Active SYMBICORT 80-4.5 MCG/ACT AERO 2 puffs twice a day BUDESONIDE-FORMOTEROL FUMARATE 31695222978 No Longer Active Simon Castillo MD Active PREDNISONE 20 MG TAB 2 tabs daily for 4 days, 1 tab daily for 4 days, 1/2 tab daily for 4 days PREDNISONE 48573941841 No Longer Active Simon Castillo MD Active AMOXICILLIN 500 MG CAPS 2 po BID x 10 days AMOXICILLIN 70855466850 No Longer Active Simon Castillo MD Active METFORMIN HCL 1000 MG TABS 1 by mounth twice a day METFORMIN HCL 28883409244 No Longer Active Simon Castillo MD Active LUTEIN-ZEAXANTHIN 6-1 MG TABS Take 2 by mouth daily LUTEIN-ZEAXANTHIN 68917498445 Active Simon Castillo MD Active IBUPROFEN 800 MG TABS Take 1 tab every 6 hrs prn IBUPROFEN 42710957563 No Longer Active Simon Castillo MD Active GLYBURIDE 2.5 MG TABS Take one by mouth daily GLYBURIDE 10458832283 No Longer Active Simon Castillo MD Active LANCETS MISC 2 qd LANCETS 28113164061 Active Pamela Conde Active ACACIA CONTOUR TEST STRP Use with testing twice daily GLUCOSE BLOOD 68482487580 Active Simon Castillo MD Active ACACIA ASPIRIN 325 MG TABS Take one by mouth daily ASPIRIN 58252216756 Active Pamela Conde Active GLYBURIDE 2.5 MG TABS Take one by mouth daily GLYBURIDE 2.5 MG TABS 011206 GLYBURIDE Inactive PREDNISONE 20 MG TAB 2 tabs daily for 4 days, 1 tab daily for 4 days, 1/2 tab daily for 4 days PREDNISONE 20 MG TAB 217536 PREDNISONE Inactive SYMBICORT 80-4.5 MCG/ACT AERO 2 puffs twice a day SYMBICORT 80-4.5 MCG/ACT AERO BUDESONIDE-FORMOTEROL FUMARATE Inactive FLONASE 50 MCG/ACT SUSP 2 puffs in each nostril daily FLONASE 50 MCG/ACT SUSP FLUTICASONE PROPIONATE Inactive ATENOLOL 50 MG TABS Take one by mouth daily ATENOLOL 50 MG TABS 239573 ATENOLOL Inactive CETIRIZINE HCL 10 MG TABS 1 po qd as needed for allergies CETIRIZINE HCL 10 MG TABS 4626002 CETIRIZINE HCL Inactive LEVAQUIN 750 MG TABS 1 po qod x 5 doses LEVAQUIN 750 MG TABS 417702 LEVOFLOXACIN Inactive GLYBURIDE 5 MG TAB Take one by mouth daily GLYBURIDE 5 MG TAB 207007 GLYBURIDE Inactive PREDNISONE 5 MG TAB Take one po qod PREDNISONE 5 MG TAB 926071 PREDNISONE Inactive PREDNISONE 20 MG TAB 2 tabs daily for 5 days, then 1 daily for 5 days PREDNISONE 20 MG TAB 229602 PREDNISONE Inactive FLONASE 50 MCG/ACT SUSP 2 puffs in each nostril daily FLONASE 50 MCG/ACT SUSP FLUTICASONE PROPIONATE Inactive SYMBICORT 160-4.5 MCG/ACT AERO 2 puff BID SYMBICORT 160-4.5 MCG/ACT AERO BUDESONIDE-FORMOTEROL FUMARATE Inactive PREDNISONE 5 MG TABS 1 po qod PREDNISONE 5 MG TABS 058573 PREDNISONE Inactive AMOXICILLIN 500 MG CAPS 2 po BID x 10 days AMOXICILLIN 500 MG CAPS 509796 AMOXICILLIN Inactive GLYBURIDE 5 MG TAB Take one by mouth daily GLYBURIDE 5 MG TAB 477074 GLYBURIDE Inactive AZITHROMYCIN 250 MG TABS 2 po qd x 1 day, then 1 po qd x 4 days AZITHROMYCIN 250 MG TABS 3944646 AZITHROMYCIN Inactive PREDNISONE 20 MG TAB 2 tabs daily for 3 days, 1 tab daily for 3 days, 1/2 tab daily for 2 days PREDNISONE 20 MG TAB 807002 PREDNISONE Inactive PREDNISONE 20 MG TAB 2 tabs daily for 5 days, then 1 daily for 5 days, then 0.5 for 4 days PREDNISONE 20 MG TAB 497617 PREDNISONE Inactive Immunizations Vaccine Administration Date Value [...] Panel - Chemistry sodium, serum 132 mmol/L 533-769 1547/10/26 carbon dioxide, venous blood 22.8 mmol/L 21.0-32.0 [...] Panel - Chemistry sodium, serum 139 mmol/L 860-743 7705/03/17 carbon dioxide, venous blood 29.0 mmol/L 21.0-32.0 [...] Rate - Chemistry sodium, serum 136 mmol/L 448-025 1599/09/18 carbon dioxide, venous blood 24.3 mmol/L 21.0-32.0 [...] HGBA1C - Chemistry sodium, serum 139 mmol/L 653-531 5661/07/09 potassium, serum 5.4 mmol/L 3.5-5.2 chloride, serum [...] 8.5 % 4.3-6.0 sodium, serum 137 mmol/L 589-591 4052/02/12 potassium, serum 5.1 mmol/L 3.5-5.2 chloride, serum 103 mmol/L 98-107 carbon dioxide, venous blood 24.4 mmol/L 21.0-32.0 blood glucose 261 mg/dL 65-110 calcium, serum 9.0 mg/dL 8.5-10.1 urea nitrogen, blood 44 mg/dL 7-18 creatinine, serum 2.37 mg/dL 0.55-1.30 Lab Report: Lipid Panel - Chemistry cholesterol, serum 139 mg/dL 581-353 6012/09/10 triglyceride, serum, fasting 176 mg/dL 30-200 HDL cholesterol, serum 45 mg/dL 32-96 LDL cholesterol, serum 59 mg/dL 0-130 Lab Report: MICROALBUMIN - Chemistry albumin/creatinine ratio, urine 30 - 300 mg/g mg/g{creat} 0-29 Lab Report: MICROALBUMIN - Lab microalbumin, urine 30 0-19 Encounters Code Encounter Date Provider Facility CPT-26201 Level 4 Est. Patient 09:17:32 [employer]WTER F[employer]IC[employer] Simon Castillo MD [facility] CPT-16589 Level 3 Est. 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 Patient 09:02:14 CDT Simon Castillo MD [facility] CPT-63734 Level 4 Est. Patient 08:47:25 CDT Simon Castillo MD [facility] CPT-56670 Level 4 Est. Patient 10:17:25 CDT Simon Castillo MD [facility] CPT-99936 Level 4 Est. Patient 10:10:09 [employer]WTER [employer]IC[employer] Simon Castillo MD [facility] CPT-76338 Level 4 Est. Patient 11:48:19 CDT Simon Castillo MD [facility] CPT-73969 Level 4 Est. Patient 08:59:29 CDT Simon Castillo MD [facility] CPT-33196 Level 4 Est. Patient 10:52:51 [employer] F[employer]IC[employer] Simon Castillo MD [facility] CPT-89067 Level 4 Est. Patient 11:50:30 CDT Simon Castillo MD [facility] CPT-25025 Level 4 Est. Patient 09:54:46 CDT Simon Castillo MD [facility] CPT-25998 Level 3 Est. Patient 11:10:14 CDT Simon Castillo MD [facility] CPT-35403 Level 4 Est. Patient 09:44:02 CDT Simon Castillo MD [facility] CPT-10755 Level 3 Est. Patient 09:27:48 CDT Simon Castillo MD [facility] CPT-72869 Level 3 Est. Patient 09:58:06 [employer]IC[employer] Simon Castillo MD [facility] CPT-12138 Level 3 Est. Patient 09:51:35 CDT Simon Castillo MD [facility] Procedures Code Procedure Name Date Entry Date Standard Description CPT-43582 Venipuncture Draw Fee 13:33:02 CDT CPT-22997 Bone Density 09:37:49 [employer] F[employer]IC[employer] CPT-76770 Fluzone High Dose 17:20:42 CDT CPT-77490 Prevnar 13 17:20:42 CDT CPT-69702 Administration 2+ single or combination vaccines inc oral 17:20:42 CDT CPT-83911 Administration single or combination vaccine inc oral 17 :20:42 CDT CPT-58759 Hand comp min 3V 09:24:38 CDT CPT-35739 Venipuncture Draw Fee 08:07:29 [employer]WTER F[employer]RICATOR CPT-85768 Venipuncture Draw Fee 09:02:51 [employer]WTER F[employer]RICATOR CPT-44631 Venipuncture Draw Fee 12:45:08 [employer]WTER F[employer]IC[employer] CPT-97779 Venipuncture Draw Fee 09:25:31 CDT CPT-G0008 Administration of Influenza Virus Vaccine 14:41:29 CDT CPT-56333 Fluzone High-Dose Intramuscular Suspension 14:41:29 CDT CPT-Cryo Cryotherapy 11:48:20 CDT CPT-43471 EKG Trac and Interp 09:21:58 CDT CPT-15588 Chest 2V Frontal and Lat 09:21:58 CDT CPT-Cryo Cryotherapy 10:54:51 [employer]WTER F[employer]RIC[employer] CPT-49605 Administration 2+ single or combination vaccines inc oral 10:42:19 CDT CPT-97383 Administration single or combination vaccine inc oral 10 :42:19 CDT CPT-04904 Pneumovax 10:42:19 CDT CPT-72240 Influenza High Dose age 65+ 10:42:19 CDT CPT-24104 Administration single or combination vaccine inc oral 13 :18:54 CDT CPT-73676 Influenza High Dose age 65+ 13:18:54 CDT CPT-16802 Venipuncture Draw Fee 11:53:16 CDT CPT-77027 LS spine comp w obliq 11:03:13 CDT CPT-Cryo Cryotherapy 08:27:16 [employer]WTER F[employer]RIC[employer] CPT-40750 Administration single or combination vaccine inc oral 10 :56:34 CDT CPT-71527 Influenza High Dose age 65+ 10:56:34 CDT
[2018-03-31 17:34] LABS: INR 1.1 (0.8-1.4); PROTHROMBIN TIME PATIENT 13.8 SEC (12.2-14.7)
--- OUTSIDE RECORDS SUMMARY | 2018-03-31 17:35 | XMS REPORT | Clinical Summary ---
Author Author Admin, E Organization [employer] Address Unknown Phone Unavailable Allergies, Adverse Reactions, [...] Simon Castillo MD Rheumatoid arthritis Steroid use, emt intermediate V58.65 Resolved Simon Castillo MD Long-term [...] abrasion, face, infected 910.1 Active Giles Tatum [employer] Abrasion or friction burn of face, neck, and scalp except eye, infected Other injury of unspecified body region, initial encounter 879.8 Active Giles Tatum [employer] Open wound(s) (multiple) of unspecified site(s) except limbs, without mention of complication Lesion of skin of face 709.9 Active Giles Tatum [employer] Unspecified disorder of skin and subcutaneous tissue LUNG CANCER ICD-V16.1 Inactive Simon Castillo MD FH DIABETES ICD-V18.0 Inactive Simon Castillo MD SEBORRHEIC KERATOSIS ICD-702.19 Inactive Simon Castillo MD BRONCHITIS, ACUTE ICD-466.0 Kerry Castillo MD ABDOMINAL TENDERNESS ICD-789.60 Inactive Simon Castillo MD CHEST WALL PAIN, HX OF ICD-V15.89 Kerry Castillo MD SCIATICA ICD-724.3 Inactive Simon Castillo MD 2012 BENIGN PROSTATIC HYPERTROPHY, MILD, HX OF ICD-V13.89 Kerry Castillo MD SINUSITIS, ACUTE ICD-461.9 Inactive Simon Castillo MD Actinic keratosis ICD-702.0 Kerry Castillo MD Chest pain ICD-786.50 Inactive Simon Castillo MD Cough ICD-786.2 Inactive Simon Castillo MD Eczema ICD-692.9 Inactive Simon Castillo MD 02/27 Bronchitis, acute ICD-466.0 Inactive Simon Castillo MD Tinea pedis ICD-110.4 Inactive Simon Castillo MD Hand pain, bilateral ICD-729.5 Kerry Castillo MD Steroid use, emt intermediate ICD-V58.65 Inactive Simon Castillo MD Hand pain, bilateral ICD-729.5 Kerry Castillo MD Obesity ICD-278.00 Kerry Castillo MD 2013 ABDOMINAL PAIN RIGHT LOWER QUADRANT ICD-789.03 Keryr Castillo MD Dyspnea ICD-786.09 Kerry Castillo MD 2016 Peripheral edema ICD-782.3 Kerry Castillo MD 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 Kerry Castillo MD Sinusitis, acute ICD-461.9 Kerry Castillo MD Dyspnea ICD-786.09 Kerry Castillo MD 2016 Pharyngitis ICD-462 Keryr Castillo MD Pneumonia, right lower lobe ICD-486 Kerry Castillo MD Medication List Medication Instructions Start Date Stop Date Generic Name NDC Status Provider Patient Instruction BUMETANIDE 0.5 MG ORAL TABLET 1 po qd BUMETANIDE 65990868639 Active Simon Castillo MD Active AUGMENTIN 875-125 MG ORAL TABLET 1 po BID x 10 days AMOXICILLIN-POT CLAVULANATE 52606807258 No Longer Active Simon Castillo MD Active PIOGLITAZONE HCL 30 MG ORAL TABLET 1 po qd PIOGLITAZONE HCL 30458743679 Active Simon Castillo MD Active GLIMEPIRIDE 4 MG ORAL TABLET 1 po BID GLIMEPIRIDE 02218703581 Active Simon Castillo MD Active ASPIRIN EC 81 MG ORAL TABLET DELAYED RELEASE 1 po qd ASPIRIN 76650809309 Active Simon Castillo MD Active CLOTRIMAZOLE 1 % EXTERNAL CREAM Apply to affected area of feet twice daily PRN Rash CLOTRIMAZOLE 11406882161 No Longer Active Simon Castillo MD Active PREDNISONE 5 MG ORAL TABLET 1 po BID PREDNISONE 85136743278 Active Dolly MCDERMOTT Active FISH OIL 1000 MG ORAL CAPSULE DELAYED RELEASE 1 po BID OMEGA- 3 FATTY ACIDS 96012091879 Active Simon Castillo MD Active LISINOPRIL 10 MG ORAL TABLET 1 p qd LISINOPRIL 02689504287 Active Simon Castillo MD Active CLARITIN 10 MG ORAL TABLET 1 tablet by mouth daily as needed for allergies LORATADINE 65612761440 No Longer Active Simon Castillo MD Active TRIAMCINOLONE ACETONIDE 0.1 % EXTERNAL OINTMENT Apply to affected areas TID for up to 2 weeks TRIAMCINOLONE ACETONIDE 55511303584 No Longer Active Simon Castillo MD Active LASIX 20 MG ORAL TABLET 1 tablet by mouth daily x 2 days FUROSEMIDE 82781067866 No Longer Active Simon Castillo MD Active SULFASALAZINE 500 MG ORAL TABLET DELAYED RELEASE 2 tabs BID 02/26 SULFASALAZINE 13416196895 No Longer Active Neto Oshea DO Active PREDNISONE 20 MG ORAL TABLET 2 tabs daily for 3 days, 1 tab daily for 3 days, 1/2 tab daily for 2 days PREDNISONE 66175624829 No Longer Active Giles Tatum APRN Active PREDNISONE 20 MG ORAL TABLET 1 tablet daily for airway inflammation PREDNISONE 92274542372 No Longer Active Giles Tatum APRN Active AZITHROMYCIN 250 MG ORAL TABLET 2 po qd x 1 day, then 1 po qd x 4 days 01/28 AZITHROMYCIN 31153295179 No Longer Active Giles Tatum APRN Active HYDROCODONE-ACETAMINOPHEN 5-325 MG ORAL TABLET 1 tab by mouth 8 hours as needed for pain HYDROCODONE-ACETAMINOPHEN 72221247444 Active Simon Castillo MD Active TRAMADOL HCL 50 MG ORAL TABLET 1 po q6hr PRN Pain TRAMADOL HCL 08353150875 No Longer Active Simon Castillo MD Active PREDNISONE 5 MG ORAL TABLET 1 po qod PREDNISONE 61992058473 No Longer Active Simon Castillo MD Active SYMBICORT 160-4.5 MCG/ACT INHALATION AEROSOL 2 puff BID BUDESONIDE-FORMOTEROL FUMARATE 78184561868 No Longer Active Simon Castillo MD Active FLONASE 50 MCG/ACT NASAL SUSPENSION 2 puffs in each nostril daily FLUTICASONE PROPIONATE 53001932934 No Longer Active Simon Castillo MD Active PREDNISONE 20 MG ORAL TABLET 2 tabs daily for 5 days, then 1 daily for 5 days PREDNISONE 50979422593 No Longer Active Simon Castillo MD Active PREDNISONE 20 MG ORAL TABLET 2 tabs daily for 5 days, then 1 daily for 5 days , then 0.5 for 4 days PREDNISONE 76818943511 No Longer Active Simon Castillo MD Active PREDNISONE 20 MG ORAL TABLET 2 tabs daily for 3 days, 1 tab daily for 3 days, 1/2 tab daily for 2 days PREDNISONE 94167231950 No Longer Active Simon Castillo MD Active AZITHROMYCIN 250 MG ORAL TABLET 2 po qd x 1 day, then 1 po qd x 4 days 03/16 AZITHROMYCIN 84011635301 No Longer Active Simon Castillo MD Active CARVEDILOL 6.25 MG ORAL TABLET 1 po BID CARVEDILOL 25298992692 Active Simon Castillo MD Active LISINOPRIL-HYDROCHLOROTHIAZIDE 20-12.5 MG ORAL TABLET 1/2 tab by mouth daily LISINOPRIL-HYDROCHLOROTHIAZIDE 30568808495 No Longer Active Simon Castillo MD Active TRAMADOL HCL 50 MG ORAL TABLET 1-2 tablets every 6 hours as needed for pain TRAMADOL HCL 74063120777 Active Giles Tatum APRN Active PREDNISONE 5 MG ORAL TABLET Take one po qod PREDNISONE 87554821941 No Longer Active Simon Castillo MD Active GLYBURIDE 5 MG ORAL TABLET Take one by mouth daily GLYBURIDE 91928586791 No Longer Active Simon Castillo MD Active LEVAQUIN 750 MG ORAL TABLET 1 po qod x 5 doses LEVOFLOXACIN 91726268461 No Longer Active Simon Castillo MD Active CETIRIZINE HCL 10 MG ORAL TABLET 1 po qd as needed for allergies CETIRIZINE HCL 47776777597 No Longer Active Simon Castillo MD Active BILBERRY CAPSULE 1 tab daily BILBERRY (VACCINIUM MYRTILLUS) CAPS 32663762437 Active Simon Castillo MD Active ATENOLOL 50 MG ORAL TABLET Take one by mouth daily ATENOLOL 41762331758 No Longer Active Simon Castillo MD Active FLONASE 50 MCG/ACT NASAL SUSPENSION 2 puffs in each nostril daily FLUTICASONE PROPIONATE 89763033562 No Longer Active Simon Castillo MD Active GLYBURIDE 5 MG ORAL TABLET Take one by mouth daily GLYBURIDE 30506706415 No Longer Active Simon Castillo MD Active SYMBICORT 80-4.5 MCG/ACT INHALATION AEROSOL 2 puffs twice a day BUDESONIDE-FORMOTEROL FUMARATE 60517178989 No Longer Active Simon Castillo MD Active PREDNISONE 20 MG ORAL TABLET 2 tabs daily for 4 days, 1 tab daily for 4 days, 1/2 tab daily for 4 days PREDNISONE 58888727243 No Longer Active Simon Castillo MD Active AMOXICILLIN 500 MG ORAL CAPSULE 2 po BID x 10 days AMOXICILLIN 87293491069 No Longer Active Simon Castillo MD Active METFORMIN HCL 1000 MG ORAL TABLET 1 by [facility] twice a day METFORMIN HCL 75234432600 No Longer Active Simon Castillo MD Active LUTEIN-ZEAXANTHIN 6-1 MG ORAL TABLET Take 2 by mouth daily LUTEIN- ZEAXANTHIN 47705767890 Active Simon Castillo MD Active IBUPROFEN 800 MG ORAL TABLET Take 1 tab every 6 hrs prn IBUPROFEN 79007364888 No Longer Active Simon Castillo MD Active GLYBURIDE 2.5 MG ORAL TABLET Take one by mouth daily GLYBURIDE 62855590700 No Longer Active Simon Castillo MD Active LANCETS 2 qd LANCETS 92754095117 Active Pamela Conde Active ACACIA CONTOUR TEST IN VITRO STRIP Use with testing twice daily GLUCOSE BLOOD 91796092285 Active Simon Castillo MD Active GLYBURIDE 2.5 MG ORAL TABLET Take one by mouth daily GLYBURIDE 2.5 MG ORAL TABLET 464605 GLYBURIDE Inactive PREDNISONE 20 MG ORAL TABLET 2 tabs daily for 4 days, 1 tab daily for 4 days, 1/2 tab daily for 4 days PREDNISONE 20 MG ORAL TABLET 177244 PREDNISONE Inactive SYMBICORT 80-4.5 MCG/ACT INHALATION AEROSOL 2 puffs twice a day SYMBICORT 80-4.5 MCG/ACT INHALATION AEROSOL BUDESONIDE- FORMOTEROL FUMARATE Inactive FLONASE 50 MCG/ACT NASAL SUSPENSION 2 puffs in each nostril daily FLONASE 50 MCG/ACT NASAL SUSPENSION 3403397 FLUTICASONE PROPIONATE Inactive ATENOLOL 50 MG ORAL TABLET Take one by mouth daily ATENOLOL 50 MG ORAL TABLET 768980 ATENOLOL Inactive CETIRIZINE HCL 10 MG ORAL TABLET 1 po qd as needed for allergies CETIRIZINE HCL 10 MG ORAL TABLET 6618599 CETIRIZINE HCL Inactive LEVAQUIN 750 MG ORAL TABLET 1 po qod x 5 doses LEVAQUIN 750 MG ORAL TABLET 014541 LEVOFLOXACIN Inactive GLYBURIDE 5 MG ORAL TABLET Take one by mouth daily GLYBURIDE 5 MG ORAL TABLET 688897 GLYBURIDE Inactive PREDNISONE 5 MG ORAL TABLET Take one po qod PREDNISONE 5 MG ORAL TABLET 248897 PREDNISONE Inactive PREDNISONE 20 MG ORAL TABLET 2 tabs daily for 5 days, then 1 daily for 5 days PREDNISONE 20 MG ORAL TABLET 928437 PREDNISONE Inactive FLONASE 50 MCG/ACT NASAL SUSPENSION 2 puffs in each nostril daily FLONASE 50 MCG/ACT NASAL SUSPENSION 3559085 FLUTICASONE PROPIONATE Inactive SYMBICORT 160-4.5 MCG/ACT INHALATION AEROSOL 2 puff BID SYMBICORT 160-4.5 MCG/ACT INHALATION AEROSOL BUDESONIDE-FORMOTEROL FUMARATE Inactive PREDNISONE 5 MG ORAL TABLET 1 po qod PREDNISONE 5 MG ORAL TABLET 594395 PREDNISONE Inactive PREDNISONE 20 MG ORAL TABLET 1 tablet daily for airway inflammation PREDNISONE 20 MG ORAL TABLET 725433 PREDNISONE Inactive SULFASALAZINE 500 MG ORAL TABLET DELAYED RELEASE 2 tabs BID 02/26 SULFASALAZINE 500 MG ORAL TABLET DELAYED RELEASE 282880 SULFASALAZINE Inactive LASIX 20 MG ORAL TABLET 1 tablet by mouth daily x 2 days LASIX 20 MG ORAL TABLET 244009 FUROSEMIDE Inactive CLARITIN 10 MG ORAL TABLET 1 tablet by mouth daily as needed for allergies CLARITIN 10 MG ORAL TABLET 103928 LORATADINE Inactive CLOTRIMAZOLE 1 % EXTERNAL CREAM Apply to affected area of feet twice daily PRN Rash CLOTRIMAZOLE 1 % EXTERNAL CREAM 726284 CLOTRIMAZOLE Inactive AMOXICILLIN 500 MG ORAL CAPSULE 2 po BID x 10 days AMOXICILLIN 500 MG ORAL CAPSULE 294727 AMOXICILLIN Inactive GLYBURIDE 5 MG ORAL TABLET Take one by mouth daily GLYBURIDE 5 MG ORAL TABLET 670988 GLYBURIDE Inactive AZITHROMYCIN 250 MG ORAL TABLET 2 po qd x 1 day, then 1 po qd x 4 days 03/16 AZITHROMYCIN 250 MG ORAL TABLET 887256 AZITHROMYCIN Inactive PREDNISONE 20 MG ORAL TABLET 2 tabs daily for 3 days, 1 tab daily for 3 days, 1/2 tab daily for 2 days PREDNISONE 20 MG ORAL TABLET 963143 PREDNISONE Inactive PREDNISONE 20 MG ORAL TABLET 2 tabs daily for 5 days, then 1 daily for 5 days , then 0.5 for 4 days PREDNISONE 20 MG ORAL TABLET 723037 PREDNISONE Inactive AZITHROMYCIN 250 MG ORAL TABLET 2 po qd x 1 day, then 1 po qd x 4 days 01/28 AZITHROMYCIN 250 MG ORAL TABLET 218015 AZITHROMYCIN Inactive PREDNISONE 20 MG ORAL TABLET 2 tabs daily for 3 days, 1 tab daily for 3 days, 1/2 tab daily for 2 days PREDNISONE 20 MG ORAL TABLET 130492 PREDNISONE Inactive TRIAMCINOLONE ACETONIDE 0.1 % EXTERNAL OINTMENT Apply to affected areas TID for up to 2 weeks TRIAMCINOLONE ACETONIDE 0.1 % EXTERNAL OINTMENT 5421482 TRIAMCINOLONE ACETONIDE Inactive AUGMENTIN 875-125 MG ORAL TABLET 1 po BID x 10 days AUGMENTIN 875-125 MG ORAL TABLET 130045 AMOXICILLIN-POT CLAVULANATE Inactive Immunizations Vaccine Administration Date [...] Peptide - Chemistry sodium, serum 142 mmol/L 842-675 1414/07/18 potassium, serum 5.0 mmol/L 3.5-5.2 chloride, serum [...] Panel - Chemistry sodium, serum 140 mmol/L 694-125 1590/07/13 carbon dioxide, venous blood 23.7 mmol/L 21.0-32.0 [...] ... - Chemistry sodium, serum 142 mmol/L 025-492 5458/01/08 carbon dioxide, venous blood 23.9 mmol/L 21.0-32.0 [...] Panel - Chemistry cholesterol, serum 126 mg/dL 996-457 7955/02/07 triglyceride, serum, fasting 83 mg/dL 30-200 HDL cholesterol, serum 70 mg/dL 32-96 LDL cholesterol, serum 39 mg/dL 0-130 hemoglobin A1C, blood, as % of total hemoglobin 8.3 % 4.3-6.0 sodium, serum 141 mmol/L 413-055 1162/02/07 carbon dioxide, venous blood 26.0 mmol/L 21.0-32.0 [...] Negative;Positive Encounters Code Encounter Date Provider Facility CPT-18208 Level 3 Est. Patient 12:04:38 [employer] Giles Tatum [facility] CPT-03106 Level 3 Est. Patient 11:57:09 [employer] Giles Tatum [facility] CPT-64038 Level 3 Est. Patient 11:48:57 [employer] Giles Tatum [facility] CPT-93385 Level 4 Est. Patient 09:54:36 CDT Simon Castillo MD [facility] CPT-70226 Level 4 Est. Patient 08:48:38 CDT Simon Castillo MD [facility] CPT-58589 Level 4 Est. Patient 09:54:08 CDT Simon Castillo MD [facility] CPT-07671 Level 4 Est. Patient 16:11:23 CDT Simon Castillo MD [facility] CPT-10486 Level 4 Est. Patient 09:29:28 [employer] Simon Castillo MD [facility] CPT-35962 Level 3 Est. Patient 09:18:25 CDT Simon Castillo MD [facility] CPT-45076 Level 4 Est. Patient 11:51:23 CDT Simon Castillo MD [facility] CPT-54585 Level 4 Est. Patient 14:32:04 CDT Neto Oshea DO [facility] CPT-24068 Level 3 Est. Patient 08:41:43 CDT Giles Tatum [facility] CPT-52498 Level 3 Est. Patient 08:40:53 CDT Giles Tatum [facility] CPT-28296 Level 3 Est. Patient 08:36:52 CDT Giles Tatum [facility] CPT-45184 Level 3 Est. Patient 09:08:44 CDT Giles Tatum [facility] CPT-14960 Level 4 Est. Patient 09:17:32 [employer] Simon Castillo MD [facility] CPT-07462 Level 3 Est. Patient 11:22:22 [employer] Simon Castillo MD [facility] CPT-80707 Level 3 Est. Patient 09:02:14 CDT Simon Castillo MD [facility] CPT-83848 Level 4 Est. Patient 08:47:25 CDT Simon Castillo MD [facility] CPT-52355 Level 4 Est. Patient 10:17:25 CDT Simon Castillo MD [facility] CPT-84998 Level 4 Est. Patient 10:10:09 [employer] Simon Castillo MD [facility] CPT-54807 Level 4 Est. Patient 11:48:19 CDT Simon Castillo MD [facility] CPT-40124 Level 4 Est. Patient 08:59:29 CDT Simon Castillo MD [facility] CPT-15318 Level 4 Est. Patient 10:52:51 [employer] Simon Castillo MD [facility] CPT-50466 Level 4 Est. Patient 11:50:30 CDT Simon Castillo MD [facility] CPT-64704 Level 4 Est. Patient 09:54:46 CDT Simon Castillo MD [facility] CPT-04075 Level 3 Est. Patient 11:10:14 CDT Simon Castillo MD [facility] CPT-17854 Level 4 Est. Patient 09:44:02 CDT Simon Castillo MD [facility] CPT-69858 Level 3 Est. Patient 09:27:48 CDT Simon Castillo MD [facility] CPT-96780 Level 3 Est. Patient 09:58:06 [employer] Simon Castillo MD [facility] CPT-22952 Level 3 Est. Patient 09:51:35 CDT Simon Castillo MD [facility] Procedures Code Procedure Name Date Entry Date Standard Description CPT-66714 EKG Trac and Interp - XRAY USE ONLY 12:19:18 [employer] 09/29 CPT-31128 Chest, 2 views 12:19:17 [employer] CPT-Cryo Cryotherapy 09:54:37 CDT CPT-61417 First Vx - Ix admin for Medicare patients 09:13:10 CDT CPT-89973 Fluzone High-Dose Intramuscular Suspension 09:13:10 CDT CPT-G0439 Subsequent Annual Wellness Exam 09:41:17 CDT CPT-97424 Lipid - LAB USE ONLY 17:15:33 CDT CPT-68661 HGBA1C - LAB USE ONLY 17:15:33 CDT CPT-11053 CMP - LAB USE ONLY 17:15:33 CDT CPT-33893 Venipuncture Draw Fee 17:15:33 CDT CPT-[facility] Transitional Care Mgmt-High 11:01:28 [employer] CPT-88018 First Vx - Ix admin for Medicare patients 17:33:39 CDT CPT-50117 Fluzone High-Dose Intramuscular Suspension 17:33:39 CDT CPT-G0438 Initial Annual Wellness Exam 08:57:30 CDT CPT-63757 Chest 2V Frontal and Lat - XRAY USE ONLY 09:00:14 CDT CPT-93935 Venipuncture Draw Fee 13:33:02 CDT CPT-97187 Bone Density 09:37:49 [employer] CPT-72897 Fluzone High Dose 17:20:42 CDT CPT-98861 Prevnar 13 17:20:42 CDT CPT-29875 Administration 2+ single or combination vaccines inc oral 17:20:42 CDT CPT-92455 Administration single or combination vaccine inc oral 17 :20:42 CDT CPT-05214 Hand comp min 3V 09:24:38 CDT CPT-88796 Venipuncture Draw Fee 08:07:29 [employer] CPT-80607 Venipuncture Draw Fee 09:02:51 [employer] CPT-44888 Venipuncture Draw Fee 12:45:08 [employer] CPT-27906 Venipuncture Draw Fee 09:25:31 CDT CPT-G0008 Administration of Influenza Virus Vaccine 14:41:29 CDT CPT-02796 Fluzone High-Dose Intramuscular Suspension 14:41:29 CDT CPT-Cryo Cryotherapy 11:48:20 CDT CPT-18887 EKG Trac and Interp 09:21:58 CDT CPT-17502 Chest 2V Frontal and Lat 09:21:58 CDT CPT-Cryo Cryotherapy 10:54:51 [employer] CPT-75462 Administration 2+ single or combination vaccines inc oral 10:42:19 CDT CPT-98690 Administration single or combination vaccine inc oral 10 :42:19 CDT CPT-86974 Pneumovax 10:42:19 CDT CPT-76701 Influenza High Dose age 65+ 10:42:19 CDT CPT-96916 Administration single or combination vaccine inc oral 13 :18:54 CDT CPT-33654 Influenza High Dose age 65+ 13:18:54 CDT CPT-82506 Venipuncture Draw Fee 11:53:16 CDT CPT-98590 LS spine comp w obliq 11:03:13 CDT CPT-Cryo Cryotherapy 08:27:16 [employer] CPT-92634 Administration single or combination vaccine inc oral 10 :56:34 CDT CPT-20144 Influenza High Dose age 65+ 10:56:34 CDT
--- OUTSIDE RECORDS SUMMARY | 2018-03-31 17:36 | XMS REPORT | Clinical Summary ---
Author Author Admin, RAFFI Salazar [facility] Address Unknown Phone Unavailable Allergies, Adverse Reactions, [...] Inactive Simon Castillo MD Steroid use, intermediate card tender ICD-V58.65 Inactive Simon Castillo MD Hand pain, bilateral ICD-729.5 Inactive Simon Castillo MD Medication List Medication Instructions Start Date Stop Date Generic Name NDC Status Provider Patient Instruction HYDROCODONE-ACETAMINOPHEN 5-325 MG TABS 1 tab by mouth 8 hours as needed for pain HYDROCODONE-ACETAMINOPHEN 80540116728 Active Simon Castillo MD Active TRAMADOL HCL 50 MG TABS 1 po q6hr PRN Pain TRAMADOL HCL 22988149303 No Longer Active Simon Castillo MD Active PREDNISONE 5 MG TAB 1-2 tabs daily for rheumatoid arthritis PREDNISONE 30786642674 Active Simon Castillo MD Active PREDNISONE 5 MG TABS 1 po qod PREDNISONE 01562120109 No Longer Active Simon Castillo MD Active SYMBICORT 160-4.5 MCG/ACT AERO 2 puff BID BUDESONIDE- FORMOTEROL FUMARATE 12500149474 No Longer Active Simon Castillo MD Active FLONASE 50 MCG/ACT SUSP 2 puffs in each nostril daily FLUTICASONE PROPIONATE 52053758122 No Longer Active Simon Castillo MD Active PREDNISONE 20 MG TAB 2 tabs daily for 5 days, then 1 daily for 5 days PREDNISONE 70391539302 No Longer Active Simon Castillo MD Active PREDNISONE 20 MG TAB 2 tabs daily for 5 days, then 1 daily for 5 days, then 0.5 for 4 days PREDNISONE 74888047288 No Longer Active Simon Castillo MD Active CLOTRIMAZOLE 1 % EXT CREA Apply to affected area of feet twice daily PRN Rash CLOTRIMAZOLE 05802273553 Active Simon Castillo MD Active PREDNISONE 20 MG TAB 2 tabs daily for 3 days, 1 tab daily for 3 days, 1/2 tab daily for 2 days PREDNISONE 34558583093 No Longer Active Simon Castillo MD Active AZITHROMYCIN 250 MG TABS 2 po qd x 1 day, then 1 po qd x 4 days AZITHROMYCIN 86375020588 No Longer Active Simon Castillo MD Active LISINOPRIL 10 MG TABS 1 tablet by mouth daily LISINOPRIL 52870134000 Active Simon Castillo MD Active GLIMEPIRIDE 1 MG TABS 1 po q a.m. GLIMEPIRIDE 12294392260 Active Simon Castillo MD Active CARVEDILOL 6.25 MG TABS 1 po BID CARVEDILOL 50201388886 Active Simon Castillo MD Active LISINOPRIL-HYDROCHLOROTHIAZIDE 20-12.5 MG TABS 1/2 tab by mouth daily LISINOPRIL-HYDROCHLOROTHIAZIDE 00893878496 No Longer Active Simon Casitllo MD Active TRAMADOL HCL 50 MG TABS 1-2 tablets every 6 hours as needed for pain TRAMADOL HCL 30220258829 Active Simon Castillo MD Active PREDNISONE 5 MG TAB Take one po qod PREDNISONE 94188406632 No Longer Active Simon Castillo MD Active GLYBURIDE 5 MG TAB Take one by mouth daily GLYBURIDE 16224030722 No Longer Active Simon Castillo MD Active LEVAQUIN 750 MG TABS 1 po qod x 5 doses LEVOFLOXACIN 83134713333 No Longer Active Simon Castillo MD Active CETIRIZINE HCL 10 MG TABS 1 po qd as needed for allergies CETIRIZINE HCL 95660283284 No Longer Active Simon Castillo MD Active FISH OIL 1000 MG CPDR 1 pill by mouth twice daily for cholesterol OMEGA -3 FATTY ACIDS 52086913160 Active Simon Castillo MD Active BILBERRY CAPS 1 tab daily BILBERRY (VACCINIUM MYRTILLUS) CAPS 35182850689 Active Simon Castillo MD Active ATENOLOL 50 MG TABS Take one by mouth daily ATENOLOL 99591049414 No Longer Active Simon Castillo MD Active FLONASE 50 MCG/ACT SUSP 2 puffs in each nostril daily FLUTICASONE PROPIONATE 04183323461 No Longer Active Simon Castillo MD Active GLYBURIDE 5 MG TAB Take one by mouth daily GLYBURIDE 35654663509 No Longer Active Simon Castillo MD Active SYMBICORT 80-4.5 MCG/ACT AERO 2 puffs twice a day BUDESONIDE-FORMOTEROL FUMARATE 11554802830 No Longer Active Simon Castillo MD Active PREDNISONE 20 MG TAB 2 tabs daily for 4 days, 1 tab daily for 4 days, 1/2 tab daily for 4 days PREDNISONE 12594235728 No Longer Active Simon Castillo MD Active AMOXICILLIN 500 MG CAPS 2 po BID x 10 days AMOXICILLIN 53086812713 No Longer Active Simon Castillo MD Active METFORMIN HCL 1000 MG TABS 1 by mounth twice a day METFORMIN HCL 53948157139 No Longer Active Simon Castillo MD Active LUTEIN-ZEAXANTHIN 6-1 MG TABS Take 2 by mouth daily LUTEIN-ZEAXANTHIN 58833003760 Active Simon Castillo MD Active IBUPROFEN 800 MG TABS Take 1 tab every 6 hrs prn IBUPROFEN 65716726636 No Longer Active Simon Castillo MD Active GLYBURIDE 2.5 MG TABS Take one by mouth daily GLYBURIDE 37251044762 No Longer Active Simon Castillo MD Active LANCETS MISC 2 qd LANCETS 08568959299 Active Pamela Conde Active ACACIA CONTOUR TEST STRP Use with testing twice daily GLUCOSE BLOOD 12778617968 Active Simon Castillo MD Active ACACIA ASPIRIN 325 MG TABS Take one by mouth daily ASPIRIN 42724965252 Active Pamela Conde Active GLYBURIDE 2.5 MG TABS Take one by mouth daily GLYBURIDE 2.5 MG TABS 682817 GLYBURIDE Inactive PREDNISONE 20 MG TAB 2 tabs daily for 4 days, 1 tab daily for 4 days, 1/2 tab daily for 4 days PREDNISONE 20 MG TAB 113650 PREDNISONE Inactive SYMBICORT 80-4.5 MCG/ACT AERO 2 puffs twice a day SYMBICORT 80-4.5 MCG/ACT AERO BUDESONIDE-FORMOTEROL FUMARATE Inactive FLONASE 50 MCG/ACT SUSP 2 puffs in each nostril daily FLONASE 50 MCG/ACT SUSP FLUTICASONE PROPIONATE Inactive ATENOLOL 50 MG TABS Take one by mouth daily ATENOLOL 50 MG TABS 535248 ATENOLOL Inactive CETIRIZINE HCL 10 MG TABS 1 po qd as needed for allergies CETIRIZINE HCL 10 MG TABS 6346778 CETIRIZINE HCL Inactive LEVAQUIN 750 MG TABS 1 po qod x 5 doses LEVAQUIN 750 MG TABS 104008 LEVOFLOXACIN Inactive GLYBURIDE 5 MG TAB Take one by mouth daily GLYBURIDE 5 MG TAB 720413 GLYBURIDE Inactive PREDNISONE 5 MG TAB Take one po qod PREDNISONE 5 MG TAB 094301 PREDNISONE Inactive PREDNISONE 20 MG TAB 2 tabs daily for 5 days, then 1 daily for 5 days PREDNISONE 20 MG TAB 014761 PREDNISONE Inactive FLONASE 50 MCG/ACT SUSP 2 puffs in each nostril daily FLONASE 50 MCG/ACT SUSP FLUTICASONE PROPIONATE Inactive SYMBICORT 160-4.5 MCG/ACT AERO 2 puff BID SYMBICORT 160-4.5 MCG/ACT AERO BUDESONIDE-FORMOTEROL FUMARATE Inactive PREDNISONE 5 MG TABS 1 po qod PREDNISONE 5 MG TABS 382419 PREDNISONE Inactive AMOXICILLIN 500 MG CAPS 2 po BID x 10 days AMOXICILLIN 500 MG CAPS 416029 AMOXICILLIN Inactive GLYBURIDE 5 MG TAB Take one by mouth daily GLYBURIDE 5 MG TAB 916152 GLYBURIDE Inactive AZITHROMYCIN 250 MG TABS 2 po qd x 1 day, then 1 po qd x 4 days AZITHROMYCIN 250 MG TABS 0917438 AZITHROMYCIN Inactive PREDNISONE 20 MG TAB 2 tabs daily for 3 days, 1 tab daily for 3 days, 1/2 tab daily for 2 days PREDNISONE 20 MG TAB 517031 PREDNISONE Inactive PREDNISONE 20 MG TAB 2 tabs daily for 5 days, then 1 daily for 5 days, then 0.5 for 4 days PREDNISONE 20 MG TAB 639663 PREDNISONE Inactive Immunizations Vaccine Administration Date Value [...] Panel - Chemistry sodium, serum 132 mmol/L 475-307 9125/10/26 carbon dioxide, venous blood 22.8 mmol/L 21.0-32.0 [...] Rate - Chemistry sodium, serum 136 mmol/L 017-289 7221/09/18 carbon dioxide, venous blood 24.3 mmol/L 21.0-32.0 [...] HGBA1C - Chemistry sodium, serum 139 mmol/L 262-387 9894/07/09 potassium, serum 5.4 mmol/L 3.5-5.2 chloride, serum [...] Panel - Chemistry cholesterol, serum 139 mg/dL [phone]/09/10 triglyceride, serum, fasting 176 mg/dL 30-200 HDL cholesterol, serum 45 mg/dL 32-96 LDL cholesterol, serum 59 mg/dL 0-130 Lab Report: MICROALBUMIN - Chemistry albumin/creatinine ratio, urine 30 - 300 mg/g mg/g{creat} 0-29 Lab Report: MICROALBUMIN - Lab microalbumin, urine 30 0-19 Lab Report: Prostatic Specific Ag - Chemistry prostate specific antigen 1.52 ng/mL 0.00-4.00 Encounters Code Encounter Date Provider Facility CPT-64819 Level 4 Est. 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 CPT-79754 Level 3 Est. Patient 11:22:22 APARTMENT GROUNDSKEEPER Simon Castillo MD [facility] CPT-74073 Level 3 Est. Patient 09:02:14 CDT Simon Castillo MD [facility] CPT-60559 Level 4 Est. Patient 08:47:25 CDT Simon Castillo MD [facility] CPT-22943 Level 4 Est. Patient 10:17:25 CDT Simon Castillo MD [facility] CPT-78460 Level 4 Est. Patient 10:10:09 APARTMENT GROUNDSKEEPER Simon Castillo MD [facility] CPT-54710 Level 4 Est. Patient 11:48:19 CDT Simon Castillo MD [facility] CPT-15411 Level 4 Est. Patient 08:59:29 CDT Simon Castillo MD [facility] CPT-01293 Level 4 Est. Patient 10:52:51 APARTMENT GROUNDSKEEPER Simon Castillo MD [facility] CPT-23131 Level 4 Est. Patient 11:50:30 CDT Simon Castillo MD [facility] CPT-63777 Level 4 Est. Patient 09:54:46 CDT Simon Castillo MD [facility] CPT-61816 Level 3 Est. Patient 11:10:14 CDT Simon Castillo MD [facility] CPT-99670 Level 4 Est. Patient 09:44:02 CDT Simon Castillo MD [facility] CPT-17689 Level 3 Est. Patient 09:27:48 CDT Simon Castillo MD [facility] CPT-66829 Level 3 Est. Patient 09:58:06 APARTMENT GROUNDSKEEPER Simon Castillo MD [facility] CPT-78430 Level 3 Est. Patient 09:51:35 CDT Simon Castillo MD [facility] Procedures Code Procedure Name Date Entry Date Standard Description CPT-83702 Bone Density 09:37:49 APARTMENT GROUNDSKEEPER CPT-19748 Fluzone High Dose 17:20:42 CDT CPT-71701 Prevnar 13 17:20:42 CDT CPT-27034 Administration 2+ single or combination vaccines inc oral 17:20:42 CDT CPT-34226 Administration single or combination vaccine inc oral 17 :20:42 CDT CPT-67712 Hand comp min 3V 09:24:38 CDT CPT-97032 Venipuncture Draw Fee 08:07:29 AP[employer]MENT GROUNDSKEEPER CPT-60804 Venipuncture Draw Fee 09:02:51 APARTMENT GROUNDSKEEPER CPT-68735 Venipuncture Draw Fee 12:45:08 APARTMENT GROUNDSKEEPER CPT-41467 Venipuncture Draw Fee 09:25:31 CDT CPT-G0008 Administration of Influenza Virus Vaccine 14:41:29 CDT CPT-17696 Fluzone High-Dose Intramuscular Suspension 14:41:29 CDT CPT-Cryo Cryotherapy 11:48:20 CDT CPT-72212 EKG Trac and Interp 09:21:58 CDT CPT-99375 Chest 2V Frontal and Lat 09:21:58 CDT CPT-Cryo Cryotherapy 10:54:51 APARTMENT GROUNDSKEEPER CPT-15307 Administration 2+ single or combination vaccines inc oral 10:42:19 CDT CPT-70068 Administration single or combination vaccine inc oral 10 :42:19 CDT CPT-20601 Pneumovax 10:42:19 CDT CPT-12556 Influenza High Dose age 65+ 10:42:19 CDT CPT-92595 Administration single or combination vaccine inc oral 13 :18:54 CDT CPT-94365 Influenza High Dose age 65+ 13:18:54 CDT CPT-44110 Venipuncture Draw Fee 11:53:16 CDT CPT-85807 LS spine comp w obliq 11:03:13 CDT CPT-Cryo Cryotherapy 08:27:16 APARTMENT GROUNDSKEEPER CPT-91174 Administration single or combination vaccine inc oral 10 :56:34 CDT CPT-50079 Influenza High Dose age 65+ 10:56:34 CDT
--- OUTSIDE RECORDS SUMMARY | 2018-03-31 17:38 | XMS REPORT | Clinical Summary ---
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 Kerry Castillo MD Steroid use, jail ICD-V58.65 [...] MG ORAL TABLET 1 po qd FUROSEMIDE 88993261286 Active Simon Castillo MD Active BACTRIM DS 800-160 MG ORAL TABLET 1 po BID x 7 days SULFAMETHOXAZOLE-TRIMETHOPRIM 74197166342 Active Simon Castillo MD Active AZITHROMYCIN 250 MG ORAL TABLET 2 po qd x 1, then 1 po qd x 4 AZITHROMYCIN 65352187075 No Longer Active Simon Castillo MD Active PROMETHAZINE-CODEINE 6.25-10 MG/5ML ORAL SYRUP 5ml po qHS PRN Cough PROMETHAZINE-CODEINE 16028925041 No Longer Active Simon Castillo MD Active SINGULAIR 10 MG ORAL TABLET 1 po qd PRN Asthma/Allergies MONTELUKAST SODIUM 36014986977 Active Simon Castillo MD Active PREDNISONE 20 MG ORAL TABLET 2 po qd x 5 days PREDNISONE 66560139150 No Longer Active Simon Castillo MD Active VIAGRA 100 MG ORAL TABLET 0.5 to 1 po qd PRN Erectile dysfunction SILDENAFIL CITRATE 28699532419 Active Simon Castillo MD Active LUTEIN-ZEAXANTHIN 6-1 MG ORAL TABLET 2 po qd LUTEIN- ZEAXANTHIN 55957706567 Active Simon Castillo MD Active BILBERRY CAPSULE 1 po qd BILBERRY (VACCINIUM MYRTILLUS) CAPS 26556261492 Active Simon Castillo MD Active TRAMADOL HCL 50 MG ORAL TABLET 1-2 tablets every 6 hours as needed for pain TRAMADOL HCL 01365204914 No Longer Active Simon Castillo MD Active HYDROCODONE-ACETAMINOPHEN 5-325 MG ORAL TABLET 1 tab by mouth 8 hours as needed for pain HYDROCODONE-ACETAMINOPHEN 63440253996 No Longer Active Simon Castillo MD Active BUMETANIDE 0.5 MG ORAL TABLET 1 po qd BUMETANIDE 82039199675 Active Simon Castillo MD Active AUGMENTIN 875-125 MG ORAL TABLET 1 po BID x 10 days AMOXICILLIN-POT CLAVULANATE 60873633160 No Longer Active Simon Castillo MD Active PIOGLITAZONE HCL 30 MG ORAL TABLET 1 po qd PIOGLITAZONE HCL 34951922386 Active Simon Castillo MD Active GLIMEPIRIDE 4 MG ORAL TABLET 1 po BID GLIMEPIRIDE 36409560165 Active Simon Castillo MD Active ASPIRIN EC 81 MG ORAL TABLET DELAYED RELEASE 1 po qd ASPIRIN 82164072845 Active Simon Castillo MD Active CLOTRIMAZOLE 1 % EXTERNAL CREAM Apply to affected area of feet twice daily PRN Rash CLOTRIMAZOLE 33377741249 No Longer Active Simon Castillo MD Active PREDNISONE 5 MG ORAL TABLET 1 po BID PREDNISONE 27250550946 Active Dolly MCDERMOTT Active FISH OIL 1000 MG ORAL CAPSULE DELAYED RELEASE 1 po BID OMEGA- 3 FATTY ACIDS 24173927246 Active Simon Castillo MD Active LISINOPRIL 10 MG ORAL TABLET 1 p qd LISINOPRIL 04607206079 Active Simon Castillo MD Active CLARITIN 10 MG ORAL TABLET 1 tablet by mouth daily as needed for allergies LORATADINE 53631958632 No Longer Active Simon Castillo MD Active TRIAMCINOLONE ACETONIDE 0.1 % EXTERNAL OINTMENT Apply to affected areas TID for up to 2 weeks TRIAMCINOLONE ACETONIDE 83021019875 No Longer Active Simon Castillo MD Active LASIX 20 MG ORAL TABLET 1 tablet by mouth daily x 2 days FUROSEMIDE 82318095059 No Longer Active Simon Castillo MD Active SULFASALAZINE 500 MG ORAL TABLET DELAYED RELEASE 2 tabs BID 02/26 SULFASALAZINE 06960814476 No Longer Active Neto Oshea DO Active PREDNISONE 20 MG ORAL TABLET 2 tabs daily for 3 days, 1 tab daily for 3 days, 1/2 tab daily for 2 days PREDNISONE 89439769644 No Longer Active Jillina Fratico HEMPHILL Active PREDNISONE 20 MG ORAL TABLET 1 tablet daily for airway inflammation PREDNISONE 24895857809 No Longer Active Jillina Frazell PROCESSING SPEC Active AZITHROMYCIN 250 MG ORAL TABLET 2 po qd x 1 day, then 1 po qd x 4 days 01/28 AZITHROMYCIN 89634117984 No Longer Active Jillina Fraamayal PROCESSING SPEC Active TRAMADOL HCL 50 MG ORAL TABLET 1 po q6hr PRN Pain TRAMADOL HCL 34643550953 No Longer Active Simon Castillo MD Active PREDNISONE 5 MG ORAL TABLET 1 po qod PREDNISONE 05813879695 No Longer Active Simon Castillo MD Active SYMBICORT 160-4.5 MCG/ACT INHALATION AEROSOL 2 puff BID BUDESONIDE-FORMOTEROL FUMARATE 25141683838 No Longer Active Simon Castillo MD Active FLONASE 50 MCG/ACT NASAL SUSPENSION 2 puffs in each nostril daily FLUTICASONE PROPIONATE 75714136829 No Longer Active Simon Castillo MD Active PREDNISONE 20 MG ORAL TABLET 2 tabs daily for 5 days, then 1 daily for 5 days PREDNISONE 71126576649 No Longer Active Simon Castillo MD Active PREDNISONE 20 MG ORAL TABLET 2 tabs daily for 5 days, then 1 daily for 5 days , then 0.5 for 4 days PREDNISONE 44689410943 No Longer Active Simon Castillo MD Active PREDNISONE 20 MG ORAL TABLET 2 tabs daily for 3 days, 1 tab daily for 3 days, 1/2 tab daily for 2 days PREDNISONE 12243651812 No Longer Active Simon Castillo MD Active AZITHROMYCIN 250 MG ORAL TABLET 2 po qd x 1 day, then 1 po qd x 4 days 03/16 AZITHROMYCIN 97662962989 No Longer Active Simon Castillo MD Active CARVEDILOL 6.25 MG ORAL TABLET 1 po BID CARVEDILOL 91275340100 Active Simon Castillo MD Active LISINOPRIL-HYDROCHLOROTHIAZIDE 20-12.5 MG ORAL TABLET 1/2 tab by mouth daily LISINOPRIL-HYDROCHLOROTHIAZIDE 57086451467 No Longer Active Simon Castillo MD Active PREDNISONE 5 MG ORAL TABLET Take one po qod PREDNISONE 08110943567 No Longer Active Simon Castillo MD Active GLYBURIDE 5 MG ORAL TABLET Take one by mouth daily GLYBURIDE 40138775834 No Longer Active Simon Castillo MD Active LEVAQUIN 750 MG ORAL TABLET 1 po qod x 5 doses LEVOFLOXACIN 47625377750 No Longer Active Simon Castillo MD Active CETIRIZINE HCL 10 MG ORAL TABLET 1 po qd as needed for allergies CETIRIZINE HCL 51238570741 No Longer Active Simon Castillo MD Active ATENOLOL 50 MG ORAL TABLET Take one by mouth daily ATENOLOL 94655432490 No Longer Active Simon Castillo MD Active FLONASE 50 MCG/ACT NASAL SUSPENSION 2 puffs in each nostril daily FLUTICASONE PROPIONATE 00210219536 No Longer Active Simon Castillo MD Active GLYBURIDE 5 MG ORAL TABLET Take one by mouth daily GLYBURIDE 57307128090 No Longer Active Simon Castillo MD Active SYMBICORT 80-4.5 MCG/ACT INHALATION AEROSOL 2 puffs twice a day BUDESONIDE-FORMOTEROL FUMARATE 28113408374 No Longer Active Simon Castillo MD Active PREDNISONE 20 MG ORAL TABLET 2 tabs daily for 4 days, 1 tab daily for 4 days, 1/2 tab daily for 4 days PREDNISONE 98172042124 No Longer Active Simon Castillo MD Active AMOXICILLIN 500 MG ORAL CAPSULE 2 po BID x 10 days AMOXICILLIN 32124312659 No Longer Active Simon Castillo MD Active METFORMIN HCL 1000 MG ORAL TABLET 1 by mounth twice a day METFORMIN HCL 39030440750 No Longer Active Simon Castillo MD Active IBUPROFEN 800 MG ORAL TABLET Take 1 tab every 6 hrs prn IBUPROFEN 49283958105 No Longer Active Simon Castillo MD Active GLYBURIDE 2.5 MG ORAL TABLET Take one by mouth daily GLYBURIDE 38628205028 No Longer Active Simon Castillo MD Active LANCETS 2 qd LANCETS 92168781327 Active Pamela Conde Active ACACIA CONTOUR TEST IN VITRO STRIP Use with testing twice daily GLUCOSE BLOOD 83043482871 Active Simon Castillo MD Active GLYBURIDE 2.5 MG ORAL TABLET Take one by mouth daily GLYBURIDE 2.5 MG ORAL TABLET 745537 GLYBURIDE Inactive PREDNISONE 20 MG ORAL TABLET 2 tabs daily for 4 days, 1 tab daily for 4 days, 1/2 tab daily for 4 days PREDNISONE 20 MG ORAL TABLET 473149 PREDNISONE Inactive SYMBICORT 80-4.5 MCG/ACT INHALATION AEROSOL 2 puffs twice a day SYMBICORT 80-4.5 MCG/ACT INHALATION AEROSOL BUDESONIDE- FORMOTEROL FUMARATE Inactive FLONASE 50 MCG/ACT NASAL SUSPENSION 2 puffs in each nostril daily FLONASE 50 MCG/ACT NASAL SUSPENSION 4826943 FLUTICASONE PROPIONATE Inactive ATENOLOL 50 MG ORAL TABLET Take one by mouth daily ATENOLOL 50 MG ORAL TABLET 706876 ATENOLOL Inactive CETIRIZINE HCL 10 MG ORAL TABLET 1 po qd as needed for allergies CETIRIZINE HCL 10 MG ORAL TABLET 8576853 CETIRIZINE HCL Inactive LEVAQUIN 750 MG ORAL TABLET 1 po qod x 5 doses LEVAQUIN 750 MG ORAL TABLET 723266 LEVOFLOXACIN Inactive GLYBURIDE 5 MG ORAL TABLET Take one by mouth daily GLYBURIDE 5 MG ORAL TABLET 544337 GLYBURIDE Inactive PREDNISONE 5 MG ORAL TABLET Take one po qod PREDNISONE 5 MG ORAL TABLET 342624 PREDNISONE Inactive PREDNISONE 20 MG ORAL TABLET 2 tabs daily for 5 days, then 1 daily for 5 days PREDNISONE 20 MG ORAL TABLET 576534 PREDNISONE Inactive FLONASE 50 MCG/ACT NASAL SUSPENSION 2 puffs in each nostril daily FLONASE 50 MCG/ACT NASAL SUSPENSION 6848939 FLUTICASONE PROPIONATE Inactive SYMBICORT 160-4.5 MCG/ACT INHALATION AEROSOL 2 puff BID SYMBICORT 160-4.5 MCG/ACT INHALATION AEROSOL BUDESONIDE-FORMOTEROL FUMARATE Inactive PREDNISONE 5 MG ORAL TABLET 1 po qod PREDNISONE 5 MG ORAL TABLET 568498 PREDNISONE Inactive PREDNISONE 20 MG ORAL TABLET 1 tablet daily for airway inflammation PREDNISONE 20 MG ORAL TABLET 453155 PREDNISONE Inactive SULFASALAZINE 500 MG ORAL TABLET DELAYED RELEASE 2 tabs BID 02/26 SULFASALAZINE 500 MG ORAL TABLET DELAYED RELEASE 841833 SULFASALAZINE Inactive LASIX 20 MG ORAL TABLET 1 tablet by mouth daily x 2 days LASIX 20 MG ORAL TABLET 255851 FUROSEMIDE Inactive CLARITIN 10 MG ORAL TABLET 1 tablet by mouth daily as needed for allergies CLARITIN 10 MG ORAL TABLET 553218 LORATADINE Inactive CLOTRIMAZOLE 1 % EXTERNAL CREAM Apply to affected area of feet twice daily PRN Rash CLOTRIMAZOLE 1 % EXTERNAL CREAM 575508 CLOTRIMAZOLE Inactive HYDROCODONE-ACETAMINOPHEN 5-325 MG ORAL TABLET 1 tab by mouth 8 hours as needed for pain HYDROCODONE-ACETAMINOPHEN 5-325 MG ORAL TABLET 034591 HYDROCODONE-ACETAMINOPHEN Inactive TRAMADOL HCL 50 MG ORAL TABLET 1-2 tablets every 6 hours as needed for pain TRAMADOL HCL 50 MG ORAL TABLET 805529 TRAMADOL HCL Inactive PROMETHAZINE-CODEINE 6.25-10 MG/5ML ORAL SYRUP 5ml po qHS PRN Cough PROMETHAZINE-CODEINE 6.25-10 MG/5ML ORAL SYRUP 214884 PROMETHAZINE-CODEINE Inactive AZITHROMYCIN 250 MG ORAL TABLET 2 po qd x 1, then 1 po qd x 4 AZITHROMYCIN 250 MG ORAL TABLET 769992 AZITHROMYCIN Inactive AMOXICILLIN 500 MG ORAL CAPSULE 2 po BID x 10 days AMOXICILLIN 500 MG ORAL CAPSULE 990086 AMOXICILLIN Inactive GLYBURIDE 5 MG ORAL TABLET Take one by mouth daily GLYBURIDE 5 MG ORAL TABLET 028477 GLYBURIDE Inactive AZITHROMYCIN 250 MG ORAL TABLET 2 po qd x 1 day, then 1 po qd x 4 days 03/16 AZITHROMYCIN 250 MG ORAL TABLET 280182 AZITHROMYCIN Inactive PREDNISONE 20 MG ORAL TABLET 2 tabs daily for 3 days, 1 tab daily for 3 days, 1/2 tab daily for 2 days PREDNISONE 20 MG ORAL TABLET 097737 PREDNISONE Inactive PREDNISONE 20 MG ORAL TABLET 2 tabs daily for 5 days, then 1 daily for 5 days , then 0.5 for 4 days PREDNISONE 20 MG ORAL TABLET 274889 PREDNISONE Inactive AZITHROMYCIN 250 MG ORAL TABLET 2 po qd x 1 day, then 1 po qd x 4 days 01/28 AZITHROMYCIN 250 MG ORAL TABLET 969709 AZITHROMYCIN Inactive PREDNISONE 20 MG ORAL TABLET 2 tabs daily for 3 days, 1 tab daily for 3 days, 1/2 tab daily for 2 days PREDNISONE 20 MG ORAL TABLET 426930 PREDNISONE Inactive TRIAMCINOLONE ACETONIDE 0.1 % EXTERNAL OINTMENT Apply to affected areas TID for up to 2 weeks TRIAMCINOLONE ACETONIDE 0.1 % EXTERNAL OINTMENT 0063272 TRIAMCINOLONE ACETONIDE Inactive AUGMENTIN 875-125 MG ORAL TABLET 1 po BID x 10 days AUGMENTIN 875-125 MG ORAL TABLET 065990 AMOXICILLIN-POT CLAVULANATE Inactive PREDNISONE 20 MG ORAL TABLET 2 po qd x 5 days PREDNISONE 20 MG ORAL TABLET 708695 PREDNISONE Inactive Immunizations Vaccine Administration Date Value [...] Peptide - Chemistry sodium, serum 142 mmol/L 959-663 1974/07/18 potassium, serum 5.0 mmol/L 3.5-5.2 chloride, serum [...] Panel - Chemistry sodium, serum 138 mmol/L 190-200 0355/06/04 carbon dioxide, venous blood 23.4 mmol/L 21.0-32.0 [...] Rate - Chemistry sodium, serum 142 mmol/L 797-908 2197/02/27 carbon dioxide, venous blood 26.2 mmol/L 21.0-32.0 [...] Panel - Chemistry sodium, serum 140 mmol/L 355-993 3283/07/13 carbon dioxide, venous blood 23.7 mmol/L 21.0-32.0 [...] dipstick Negative Negative sodium, serum 142 mmol/L 857-757 0369/01/08 carbon dioxide, venous blood 23.9 mmol/L 21.0-32.0 [...] Negative;Positive Encounters Code Encounter Date Provider Facility CPT-14688 Level 4 Est. Patient 11:32:07 CDT Simon Castillo [facility] CPT-64581 Level 3 Est. Patient 11:36:15 CDT Simon Castillo [facility] CPT-68200 Level 4 Est. Patient 14:06:23 NAIL SPECIALIST Simon Castillo MD [facility] CPT-48321 Level 3 Est. Patient 12:04:38 NAIL SPECIALIST Giles Tatum [facility] CPT-92180 Level 3 Est. Patient 11:57:09 NAIL SPECIALIST Giles Tatum [facility] CPT-22627 Level 3 Est. Patient 11:48:57 NAIL SPECIALIST Giles Tatum [facility] CPT-68286 Level 4 Est. Patient 09:54:36 CDT Simon Castillo MD [facility] CPT-42111 Level 4 Est. Patient 08:48:38 CDT Simon Castillo MD [facility] CPT-53097 Level 4 Est. Patient 09:54:08 CDT Simon Castillo MD [facility] CPT-74110 Level 4 Est. Patient 16:11:23 CDT Simon Castillo MD [facility] CPT-40062 Level 4 Est. Patient 09:29:28 NAIL SPECIALIST Simon Castillo MD [facility] CPT-56949 Level 3 Est. Patient 09:18:25 CDT Simon Castillo MD [facility] CPT-77932 Level 4 Est. Patient 11:51:23 CDT Simon Castillo MD [facility] CPT-34740 Level 4 Est. Patient 14:32:04 CDT Neto Oshea DO [facility] CPT-25434 Level 3 Est. Patient 08:41:43 CDT Jillina Nashzell [facility] CPT-63806 Level 3 Est. Patient 08:40:53 CDT Jillina Frazell [facility] CPT-85031 Level 3 Est. Patient 08:36:52 CDT Jillina Frazell [facility] CPT-32445 Level 3 Est. Patient 09:08:44 CDT Jillina Nashzell [facility] CPT-25560 Level 4 Est. Patient 09:17:32 NAIL SPECIALIST Simon Castillo MD [facility] CPT-61110 Level 3 Est. Patient 11:22:22 NAIL SPECIALIST Simon Castillo MD [facility] CPT-33748 Level 3 Est. Patient 09:02:14 CDT Simon Castillo MD [facility] CPT-11036 Level 4 Est. Patient 08:47:25 CDT Simon Castillo MD [facility] CPT-62553 Level 4 Est. Patient 10:17:25 CDT Simon Castillo MD [facility] CPT-56216 Level 4 Est. Patient 10:10:09 NAIL SPECIALIST Simon Castillo MD [facility] CPT-55971 Level 4 Est. Patient 11:48:19 CDT Simon Castillo MD [facility] CPT-87282 Level 4 Est. Patient 08:59:29 CDT Simon Castillo MD [facility] CPT-25166 Level 4 Est. Patient 10:52:51 NAIL SPECIALIST Simon Castillo MD [facility] CPT-92590 Level 4 Est. Patient 11:50:30 CDT Simon Castillo MD [facility] CPT-59562 Level 4 Est. Patient 09:54:46 CDT Simon Castillo MD [facility] CPT-17354 Level 3 Est. Patient 11:10:14 CDT Simon Castillo MD [facility] CPT-86219 Level 4 Est. Patient 09:44:02 CDT Simon Castillo MD [facility] CPT-61434 Level 3 Est. Patient 09:27:48 CDT Simon Castillo MD [facility] CPT-36805 Level 3 Est. Patient 09:58:06 NAIL SPECIALIST Simon Castillo MD [facility] CPT-78435 Level 3 Est. Patient 09:51:35 CDT Simon Castillo MD [facility] Procedures Code Procedure Name Date Entry Date Standard Description CPT-71743 EKG Trac and Interp - XRAY USE ONLY 11:41:45 CDT 02/23 CPT-34157 Chest, 2 views 11:41:45 CDT CPT-80652 EKG Trac and Interp - XRAY USE ONLY 12:19:18 NAIL SPECIALIST 09/29 CPT-92661 Chest, 2 views 12:19:17 NAIL SPECIALIST CPT-Cryo Cryotherapy 09:54:37 CDT CPT-60116 First Vx - Ix admin for Medicare patients 09:13:10 CDT CPT-74190 Fluzone High-Dose Intramuscular Suspension 09:13:10 CDT CPT-G0439 Subsequent Annual Wellness Exam 09:41:17 CDT CPT-47635 Lipid - LAB USE ONLY 17:15:33 CDT CPT-90031 HGBA1C - LAB USE ONLY 17:15:33 CDT CPT-02938 CMP - LAB USE ONLY 17:15:33 CDT CPT-96805 Venipuncture Draw Fee 17:15:33 CDT CPT-[facility] Transitional Care Mgmt-High 11:01:28 NAIL SPECIALIST CPT-15176 First Vx - Ix admin for Medicare patients 17:33:39 CDT CPT-89802 Fluzone High-Dose Intramuscular Suspension 17:33:39 CDT CPT-G0438 Initial Annual Wellness Exam 08:57:30 CDT CPT-20806 Chest 2V Frontal and Lat - XRAY USE ONLY 09:00:14 CDT CPT-70620 Venipuncture Draw Fee 13:33:02 CDT CPT-37200 Bone Density 09:37:49 NAIL SPECIALIST CPT-87420 Fluzone High Dose 17:20:42 CDT CPT-54587 Prevnar 13 17:20:42 CDT CPT-00046 Administration 2+ single or combination vaccines inc oral 17:20:42 CDT CPT-04360 Administration single or combination vaccine inc oral 17 :20:42 CDT CPT-88796 Hand comp min 3V 09:24:38 CDT CPT-62666 Venipuncture Draw Fee 08:07:29 NAIL SPECIALIST CPT-89113 Venipuncture Draw Fee 09:02:51 NAIL SPECIALIST CPT-41308 Venipuncture Draw Fee 12:45:08 NAIL SPECIALIST CPT-06633 Venipuncture Draw Fee 09:25:31 CDT CPT-G0008 Administration of Influenza Virus Vaccine 14:41:29 CDT CPT-05915 Fluzone High-Dose Intramuscular Suspension 14:41:29 CDT CPT-Cryo Cryotherapy 11:48:20 CDT CPT-35351 EKG Trac and Interp 09:21:58 CDT CPT-27510 Chest 2V Frontal and Lat 09:21:58 CDT CPT-Cryo Cryotherapy 10:54:51 NAIL SPECIALIST CPT-52414 Administration 2+ single or combination vaccines inc oral 10:42:19 CDT CPT-75594 Administration single or combination vaccine inc oral 10 :42:19 CDT CPT-37772 Pneumovax 10:42:19 CDT CPT-93338 Influenza High Dose age 65+ 10:42:19 CDT CPT-32245 Administration single or combination vaccine inc oral 13 :18:54 CDT CPT-82123 Influenza High Dose age 65+ 13:18:54 CDT CPT-90414 Venipuncture Draw Fee 11:53:16 CDT CPT-00612 LS spine comp w obliq 11:03:13 CDT CPT-Cryo Cryotherapy 08:27:16 NAIL SPECIALIST CPT-32300 Administration single or combination vaccine inc oral 10 :56:34 CDT CPT-84411 Influenza High Dose age 65+ 10:56:34 CDT
--- OUTSIDE RECORDS SUMMARY | 2018-03-31 17:40 | XMS REPORT | Clinical Summary ---
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 Inactive Simon Castillo MD Hand pain, [...] MG ORAL TABS 1 po qd BUMETANIDE 75134810821 Active Simon Castillo MD Active AUGMENTIN 875-125 MG ORAL TABS 1 po BID x 10 days AMOXICILLIN-POT CLAVULANATE 66482442455 No Longer Active Simon Castillo MD Active PIOGLITAZONE HCL 30 MG ORAL TABS 1 po qd PIOGLITAZONE HCL 75065589877 Active Simon Castillo MD Active GLIMEPIRIDE 4 MG ORAL TABS 1 po BID GLIMEPIRIDE 12297717641 Active Simon Castillo MD Active ASPIRIN EC 81 MG ORAL TBEC 1 po qd ASPIRIN 52897290476 Active Simon Castillo MD Active CLOTRIMAZOLE 1 % EXT CREA Apply to affected area of feet twice daily PRN Rash CLOTRIMAZOLE 81380084200 No Longer Active Simon Castillo MD Active PREDNISONE 5 MG TAB 1 po BID PREDNISONE 87876661770 Active Simon Castillo MD Active FISH OIL 1000 MG CPDR 1 po BID OMEGA-3 FATTY ACIDS 79207016054 Active Simon Castillo MD Active LISINOPRIL 10 MG TABS 1 p qd LISINOPRIL 42268757574 Active Simon Castillo MD Active CLARITIN 10 MG TAB 1 tablet by mouth daily as needed for allergies LORATADINE 04556963331 No Longer Active Simon Castillo MD Active TRIAMCINOLONE ACETONIDE 0.1 % OINT Apply to affected areas TID for up to 2 weeks TRIAMCINOLONE ACETONIDE 08433774536 No Longer Active Simon Castillo MD Active LASIX 20 MG TAB 1 tablet by mouth daily x 2 days FUROSEMIDE 00573696407 No Longer Active Simon Castillo MD Active SULFASALAZINE 500 MG ORAL TBEC 2 tabs BID SULFASALAZINE 49510029146 No Longer Active Neto Oshea DO Active PREDNISONE 20 MG TAB 2 tabs daily for 3 days, 1 tab daily for 3 days, 1/2 tab daily for 2 days PREDNISONE 65627970189 No Longer Active Jillina Frazell RAIL SPLITTER Active PREDNISONE 20 MG TAB 1 tablet daily for airway inflammation 02/25 PREDNISONE 30065754987 No Longer Active Jillina Frazell RAIL SPLITTER Active AZITHROMYCIN 250 MG TABS 2 po qd x 1 day, then 1 po qd x 4 days AZITHROMYCIN 63585594629 No Longer Active Jillina Frazell RAIL SPLITTER Active HYDROCODONE-ACETAMINOPHEN 5-325 MG TABS 1 tab by mouth 8 hours as needed for pain HYDROCODONE-ACETAMINOPHEN 21454815181 Active Simon Castillo MD Active TRAMADOL HCL 50 MG TABS 1 po q6hr PRN Pain TRAMADOL HCL 36123531335 No Longer Active Simon Castillo MD Active PREDNISONE 5 MG TABS 1 po qod PREDNISONE 04014493242 No Longer Active Simon Castillo MD Active SYMBICORT 160-4.5 MCG/ACT AERO 2 puff BID BUDESONIDE- FORMOTEROL FUMARATE 01771817555 No Longer Active Simon Castillo MD Active FLONASE 50 MCG/ACT SUSP 2 puffs in each nostril daily FLUTICASONE PROPIONATE 69926739259 No Longer Active Simon Castillo MD Active PREDNISONE 20 MG TAB 2 tabs daily for 5 days, then 1 daily for 5 days PREDNISONE 22244208894 No Longer Active Simon Castillo MD Active PREDNISONE 20 MG TAB 2 tabs daily for 5 days, then 1 daily for 5 days, then 0.5 for 4 days PREDNISONE 11813818410 No Longer Active Simon Castillo MD Active PREDNISONE 20 MG TAB 2 tabs daily for 3 days, 1 tab daily for 3 days, 1/2 tab daily for 2 days PREDNISONE 36983242679 No Longer Active Simon Castillo MD Active AZITHROMYCIN 250 MG TABS 2 po qd x 1 day, then 1 po qd x 4 days AZITHROMYCIN 33217666111 No Longer Active Simon Castillo MD Active CARVEDILOL 6.25 MG TABS 1 po BID CARVEDILOL 66093488103 Active Simon Castillo MD Active LISINOPRIL-HYDROCHLOROTHIAZIDE 20-12.5 MG TABS 1/2 tab by mouth daily LISINOPRIL-HYDROCHLOROTHIAZIDE 32986521856 No Longer Active Simon Castillo MD Active TRAMADOL HCL 50 MG TABS 1-2 tablets every 6 hours as needed for pain TRAMADOL HCL 84593159701 Active Giles Tatum APRN Active PREDNISONE 5 MG TAB Take one po qod PREDNISONE 62972058837 No Longer Active Simon Castillo MD Active GLYBURIDE 5 MG TAB Take one by mouth daily GLYBURIDE 21669201378 No Longer Active Simon Castillo MD Active LEVAQUIN 750 MG TABS 1 po qod x 5 doses LEVOFLOXACIN 27235038033 No Longer Active Simon Castillo MD Active CETIRIZINE HCL 10 MG TABS 1 po qd as needed for allergies CETIRIZINE HCL 20151600882 No Longer Active Simon Castillo MD Active BILBERRY CAPS 1 tab daily BILBERRY (VACCINIUM MYRTILLUS) CAPS 45283887285 Active Simon Castillo MD Active ATENOLOL 50 MG TABS Take one by mouth daily ATENOLOL 74371788808 No Longer Active Simon Castillo MD Active FLONASE 50 MCG/ACT SUSP 2 puffs in each nostril daily FLUTICASONE PROPIONATE 99991166196 No Longer Active Simon Castillo MD Active GLYBURIDE 5 MG TAB Take one by mouth daily GLYBURIDE 59223607086 No Longer Active Simon Castillo MD Active SYMBICORT 80-4.5 MCG/ACT AERO 2 puffs twice a day BUDESONIDE-FORMOTEROL FUMARATE 37800819631 No Longer Active Simon Castillo MD Active PREDNISONE 20 MG TAB 2 tabs daily for 4 days, 1 tab daily for 4 days, 1/2 tab daily for 4 days PREDNISONE 53541401369 No Longer Active Simon Castillo MD Active AMOXICILLIN 500 MG CAPS 2 po BID x 10 days AMOXICILLIN 44305936964 No Longer Active Simon Castillo MD Active METFORMIN HCL 1000 MG TABS 1 by [facility] twice a day METFORMIN HCL 37966738019 No Longer Active Simon Castillo MD Active LUTEIN-ZEAXANTHIN 6-1 MG TABS Take 2 by mouth daily LUTEIN-ZEAXANTHIN 73903647966 Active Simon Castillo MD Active IBUPROFEN 800 MG TABS Take 1 tab every 6 hrs prn IBUPROFEN 47273605169 No Longer Active Simon Castillo MD Active GLYBURIDE 2.5 MG TABS Take one by mouth daily GLYBURIDE 12345038689 No Longer Active Simon Castillo MD Active LANCETS MISC 2 qd LANCETS 23453902267 Active Pamela Conde Active ACACIA CONTOUR TEST STRP Use with testing twice daily GLUCOSE BLOOD 43291683171 Active Simon Castillo MD Active GLYBURIDE 2.5 MG TABS Take one by mouth daily GLYBURIDE 2.5 MG TABS 970907 GLYBURIDE Inactive PREDNISONE 20 MG TAB 2 tabs daily for 4 days, 1 tab daily for 4 days, 1/2 tab daily for 4 days PREDNISONE 20 MG TAB 284090 PREDNISONE Inactive SYMBICORT 80-4.5 MCG/ACT AERO 2 puffs twice a day SYMBICORT 80-4.5 MCG/ACT AERO BUDESONIDE-FORMOTEROL FUMARATE Inactive FLONASE 50 MCG/ACT SUSP 2 puffs in each nostril daily FLONASE 50 MCG/ACT SUSP 4294931 FLUTICASONE PROPIONATE Inactive ATENOLOL 50 MG TABS Take one by mouth daily ATENOLOL 50 MG TABS 320372 ATENOLOL Inactive CETIRIZINE HCL 10 MG TABS 1 po qd as needed for allergies CETIRIZINE HCL 10 MG TABS 1550316 CETIRIZINE HCL Inactive LEVAQUIN 750 MG TABS 1 po qod x 5 doses LEVAQUIN 750 MG TABS 634889 LEVOFLOXACIN Inactive GLYBURIDE 5 MG TAB Take one by mouth daily GLYBURIDE 5 MG TAB 674779 GLYBURIDE Inactive PREDNISONE 5 MG TAB Take one po qod PREDNISONE 5 MG TAB 695454 PREDNISONE Inactive PREDNISONE 20 MG TAB 2 tabs daily for 5 days, then 1 daily for 5 days PREDNISONE 20 MG TAB 865674 PREDNISONE Inactive FLONASE 50 MCG/ACT SUSP 2 puffs in each nostril daily FLONASE 50 MCG/ACT SUSP 8935482 FLUTICASONE PROPIONATE Inactive SYMBICORT 160-4.5 MCG/ACT AERO 2 puff BID SYMBICORT 160-4.5 MCG/ACT AERO BUDESONIDE-FORMOTEROL FUMARATE Inactive PREDNISONE 5 MG TABS 1 po qod PREDNISONE 5 MG TABS 632041 PREDNISONE Inactive PREDNISONE 20 MG TAB 1 tablet daily for airway inflammation 02/25 PREDNISONE 20 MG TAB 433709 PREDNISONE Inactive SULFASALAZINE 500 MG ORAL TBEC 2 tabs BID SULFASALAZINE 500 MG ORAL TBEC 168612 SULFASALAZINE Inactive LASIX 20 MG TAB 1 tablet by mouth daily x 2 days LASIX 20 MG TAB 274755 FUROSEMIDE Inactive CLARITIN 10 MG TAB 1 tablet by mouth daily as needed for allergies CLARITIN 10 MG TAB 801172 LORATADINE Inactive CLOTRIMAZOLE 1 % EXT CREA Apply to affected area of feet twice daily PRN Rash CLOTRIMAZOLE 1 % EXT CREA 227258 CLOTRIMAZOLE Inactive AMOXICILLIN 500 MG CAPS 2 po BID x 10 days AMOXICILLIN 500 MG CAPS 051886 AMOXICILLIN Inactive GLYBURIDE 5 MG TAB Take one by mouth daily GLYBURIDE 5 MG TAB 900854 GLYBURIDE Inactive AZITHROMYCIN 250 MG TABS 2 po qd x 1 day, then 1 po qd x 4 days AZITHROMYCIN 250 MG TABS 398125 AZITHROMYCIN Inactive PREDNISONE 20 MG TAB 2 tabs daily for 3 days, 1 tab daily for 3 days, 1/2 tab daily for 2 days PREDNISONE 20 MG TAB 221914 PREDNISONE Inactive PREDNISONE 20 MG TAB 2 tabs daily for 5 days, then 1 daily for 5 days, then 0.5 for 4 days PREDNISONE 20 MG TAB 170055 PREDNISONE Inactive AZITHROMYCIN 250 MG TABS 2 po qd x 1 day, then 1 po qd x 4 days AZITHROMYCIN 250 MG TABS 753936 AZITHROMYCIN Inactive PREDNISONE 20 MG TAB 2 tabs daily for 3 days, 1 tab daily for 3 days, 1/2 tab daily for 2 days PREDNISONE 20 MG TAB 395582 PREDNISONE Inactive TRIAMCINOLONE ACETONIDE 0.1 % OINT Apply to affected areas TID for up to 2 weeks TRIAMCINOLONE ACETONIDE 0.1 % OINT 5438220 TRIAMCINOLONE ACETONIDE Inactive AUGMENTIN 875-125 MG ORAL TABS 1 po BID x 10 days AUGMENTIN 875-125 MG ORAL TABS 208316 AMOXICILLIN-POT CLAVULANATE Inactive Immunizations Vaccine Administration Date [...] Peptide - Chemistry sodium, serum 142 mmol/L 566-190 0438/07/18 potassium, serum 5.0 mmol/L 3.5-5.2 chloride, serum [...] Panel - Chemistry sodium, serum 140 mmol/L 631-965 1484/07/13 carbon dioxide, venous blood 23.7 mmol/L 21.0-32.0 [...] 7.8 % 4.3-6.0 Lab Report: [facility]id Panel, [facility], Comp. Metabolic Panel - Chemistry cholesterol, serum 126 mg/dL 515-506 6459/02/07 triglyceride, serum, fasting 83 mg/dL 30-200 HDL cholesterol, serum 70 mg/dL 32-96 LDL cholesterol, serum 39 mg/dL 0-130 hemoglobin A1C, blood, as % of total hemoglobin 8.3 % 4.3-6.0 sodium, serum 141 mmol/L 569-736 8020/02/07 carbon dioxide, venous blood 26.0 mmol/L 21.0-32.0 [...] 0.00-1.00 Encounters Code Encounter Date Provider Facility CPT-98381 Level 4 Est. Patient 09:54:36 CDT Simon Castillo MD [facility] CPT-30464 Level 4 Est. Patient 08:48:38 CDT Simon Castillo MD [facility] CPT-51229 Level 4 Est. Patient 09:54:08 CDT Simon Castillo MD [facility] CPT-57813 Level 4 Est. Patient 16:11:23 CDT Simon Castillo MD [facility] CPT-05655 Level 4 Est. Patient 09:29:28 GRANTS ANALYST Simon Castillo [facility] CPT-69918 Level 3 Est. Patient 09:18:25 CDT Simon Castillo MD [facility] CPT-17380 Level 4 Est. Patient 11:51:23 CDT Simon Castillo MD [facility] CPT-18427 Level 4 Est. Patient 14:32:04 CDT Neto Oshea DO [facility] CPT-20577 Level 3 Est. Patient 08:41:43 CDT Giles Tatum [facility] CPT-78417 Level 3 Est. Patient 08:40:53 CDT Giles Tatum [facility] CPT-98440 Level 3 Est. Patient 08:36:52 CDT Giles Tatum [facility] CPT-04572 Level 3 Est. Patient 09:08:44 CDT Giles Tautm [facility] CPT-23002 Level 4 Est. Patient 09:17:32 GRANTS ANALYST Simon Castillo MD [facility] CPT-11009 Level 3 Est. Patient 11:22:22 GRANTS ANALYST Simon Castillo MD [facility] CPT-38187 Level 3 Est. Patient 09:02:14 CDT Simon Castillo MD [facility] CPT-24093 Level 4 Est. Patient 08:47:25 CDT Simon Castillo MD [facility] CPT-67196 Level 4 Est. Patient 10:17:25 CDT Simon Castillo MD [facility] CPT-81713 Level 4 Est. Patient 10:10:09 GRANTS ANALYST Simon Castillo MD [facility] CPT-67680 Level 4 Est. Patient 11:48:19 CDT Simon Castillo MD [facility] CPT-86973 Level 4 Est. Patient 08:59:29 CDT Simon Castillo MD [facility] CPT-15209 Level 4 Est. Patient 10:52:51 GRANTS ANALYST Simon Castillo MD [facility] CPT-53816 Level 4 Est. Patient 11:50:30 CDT Simon Castillo MD [facility] CPT-29381 Level 4 Est. Patient 09:54:46 CDT Simon Castillo MD [facility] CPT-27317 Level 3 Est. Patient 11:10:14 CDT Simon Castillo MD [facility] CPT-56209 Level 4 Est. Patient 09:44:02 CDT Simon Castillo MD [facility] CPT-06469 Level 3 Est. Patient 09:27:48 CDT Simon Castillo MD [facility] CPT-34117 Level 3 Est. Patient 09:58:06 GRANTS ANALYST Simon Castillo MD [facility] CPT-59458 Level 3 Est. Patient 09:51:35 CDT Simon Castillo MD [facility] Procedures Code Procedure Name Date Entry Date Standard Description CPT-Cryo Cryotherapy 09:54:37 CDT CPT-96079 First Vx - Ix admin for Medicare patients 09:13:10 CDT CPT-82448 Fluzone High-Dose Intramuscular Suspension 09:13:10 CDT CPT-G0439 Subsequent Annual Wellness Exam 09:41:17 CDT CPT-33872 Lipid - LAB USE ONLY 17:15:33 CDT CPT-48300 HGBA1C - LAB USE ONLY 17:15:33 CDT CPT-15353 CMP - LAB USE ONLY 17:15:33 CDT CPT-36345 Venipuncture Draw Fee 17:15:33 CDT CPT-TCM[facility] Transitional Care Mgmt-High 11:01:28 GRANTS ANALYST CPT-86652 First Vx - Ix admin for Medicare patients 17:33:39 CDT CPT-06716 Fluzone High-Dose Intramuscular Suspension 17:33:39 CDT CPT-G0438 Initial Annual Wellness Exam 08:57:30 CDT CPT-67085 Chest 2V Frontal and Lat - XRAY USE ONLY 09:00:14 CDT CPT-60130 Venipuncture Draw Fee 13:33:02 CDT CPT-15493 Bone Density 09:37:49 GRANTS ANALYST CPT-51457 Fluzone High Dose 17:20:42 CDT CPT-40945 Prevnar 13 17:20:42 CDT CPT-21077 Administration 2+ single or combination vaccines inc oral 17:20:42 CDT CPT-21659 Administration single or combination vaccine inc oral 17 :20:42 CDT CPT-97621 Hand comp min 3V 09:24:38 CDT CPT-88366 Venipuncture Draw Fee 08:07:29 GRANTS ANALYST CPT-76370 Venipuncture Draw Fee 09:02:51 GRANTS ANALYST CPT-85632 Venipuncture Draw Fee 12:45:08 GRANTS ANALYST CPT-80778 Venipuncture Draw Fee 09:25:31 CDT CPT-G0008 Administration of Influenza Virus Vaccine 14:41:29 CDT CPT-65014 Fluzone High-Dose Intramuscular Suspension 14:41:29 CDT CPT-Cryo Cryotherapy 11:48:20 CDT CPT-96314 EKG Trac and Interp 09:21:58 CDT CPT-90499 Chest 2V Frontal and Lat 09:21:58 CDT CPT-Cryo Cryotherapy 10:54:51 GRANTS ANALYST CPT-00999 Administration 2+ single or combination vaccines inc oral 10:42:19 CDT CPT-24138 Administration single or combination vaccine inc oral 10 :42:19 CDT CPT-25319 Pneumovax 10:42:19 CDT CPT-81231 Influenza High Dose age 65+ 10:42:19 CDT CPT-58790 Administration single or combination vaccine inc oral 13 :18:54 CDT CPT-79334 Influenza High Dose age 65+ 13:18:54 CDT CPT-04727 Venipuncture Draw Fee 11:53:16 CDT CPT-93535 LS spine comp w obliq 11:03:13 CDT CPT-Cryo Cryotherapy 08:27:16 GRANTS ANALYST CPT-19618 Administration single or combination vaccine inc oral 10 :56:34 CDT CPT-97765 Influenza High Dose age 65+ 10:56:34 CDT
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
--- OUTSIDE RECORDS SUMMARY | 2018-03-31 17:43 | XMS REPORT | Clinical Summary ---
Author Author Admin, E Organization [facility] Address Unknown Phone Unavailable Allergies, Adverse Reactions, Alerts Allergy Name Reaction Description Start Date Severity Status Provider No Known Allergies [facility] Conditions or Problems Problem Name Problem [...] Simon Castillo MD Rheumatoid arthritis Steroid use, oil heaterman V58.65 Resolved Simon Castillo MD Long-term (current) [...] Rheumatoid arthritis Pharyngitis 462 Active Jillina Frazell [employer] Acute pharyngitis Dyspnea 786.09 Active Jillina Frazell [employer] Other dyspnea and respiratory abnormality Peripheral edema 782.3 Active Jillina Frazell [employer] Edema 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 Simon Castillo [...] ICD-729.5 Inactive Simon Castillo MD Steroid use, oil heaterman ICD-V58.65 Inactive Simon Castillo MD Hand pain, bilateral ICD-729.5 Kerry Castillo MD Medication List Medication Instructions Start Date Stop Date Generic Name NDC Status Provider Patient Instruction TRIAMCINOLONE ACETONIDE 0.1 % OINT Apply to affected areas TID for up to 2 weeks TRIAMCINOLONE ACETONIDE 20299948221 Active Simon Castillo MD Active LASIX 20 MG TAB 1 tablet by mouth daily x 2 days FUROSEMIDE 39824038894 No Longer Active Simon Castillo MD Active SULFASALAZINE 500 MG ORAL TBEC 2 tabs BID SULFASALAZINE 57097748661 No Longer Active Neto Oshea DO Active PREDNISONE 20 MG TAB 2 tabs daily for 3 days, 1 tab daily for 3 days, 1/2 tab daily for 2 days PREDNISONE 75846348152 No Longer Active Jilltriston Tatum APRN Active PREDNISONE 20 MG TAB 1 tablet daily for airway inflammation 02/25 PREDNISONE 03783150943 No Longer Active Jillina Frazell [facility] Active CLARITIN 10 MG TAB 1 tablet by mouth daily as needed for allergies LORATADINE 56700883936 Active Giles Tatum [employer] Active AZITHROMYCIN 250 MG TABS 2 po qd x 1 day, then 1 po qd x 4 days AZITHROMYCIN 12730264614 No Longer Active Jillina Frazell [employer] [facility] [facility] Active GLIMEPIRIDE 2 MG ORAL TABS 1 po q a.m. GLIMEPIRIDE 35767761435 Active Simon Castillo MD Active HYDROCODONE-ACETAMINOPHEN 5-325 MG TABS 1 tab by mouth 8 hours as needed for pain HYDROCODONE-ACETAMINOPHEN 43642881332 Active Simon Castillo MD Active TRAMADOL HCL 50 MG TABS 1 po q6hr PRN Pain TRAMADOL HCL 57618791577 No Longer Active Simon Castillo MD Active PREDNISONE 5 MG TAB 1-2 tabs daily for rheumatoid arthritis PREDNISONE 36968880226 Active Simon Castillo MD Active PREDNISONE 5 MG TABS 1 po qod PREDNISONE 75840453613 No Longer Active Simon Castillo MD Active SYMBICORT 160-4.5 MCG/ACT AERO 2 puff BID BUDESONIDE- FORMOTEROL FUMARATE 23663081212 No Longer Active Simon Castillo MD Active FLONASE 50 MCG/ACT SUSP 2 puffs in each nostril daily FLUTICASONE PROPIONATE 99043562013 No Longer Active Simon Castillo MD Active PREDNISONE 20 MG TAB 2 tabs daily for 5 days, then 1 daily for 5 days PREDNISONE 14639049467 No Longer Active Simon Castillo MD Active PREDNISONE 20 MG TAB 2 tabs daily for 5 days, then 1 daily for 5 days, then 0.5 for 4 days PREDNISONE 87289171732 No Longer Active Simon Castillo MD Active CLOTRIMAZOLE 1 % EXT CREA Apply to affected area of feet twice daily PRN Rash CLOTRIMAZOLE 98050106653 Active Simon Castillo MD Active PREDNISONE 20 MG TAB 2 tabs daily for 3 days, 1 tab daily for 3 days, 1/2 tab daily for 2 days PREDNISONE 35556165328 No Longer Active Simon Castillo MD Active AZITHROMYCIN 250 MG TABS 2 po qd x 1 day, then 1 po qd x 4 days AZITHROMYCIN 57045469461 No Longer Active Simon Castillo MD Active LISINOPRIL 10 MG TABS 1 tablet by mouth daily LISINOPRIL 76878132402 Active Simon Castillo MD Active CARVEDILOL 6.25 MG TABS 1 po BID CARVEDILOL 29909185405 Active Simon Castillo MD Active LISINOPRIL-HYDROCHLOROTHIAZIDE 20-12.5 MG TABS 1/2 tab by mouth daily LISINOPRIL-HYDROCHLOROTHIAZIDE 96734653200 No Longer Active Simon Castillo MD Active TRAMADOL HCL 50 MG TABS 1-2 tablets every 6 hours as needed for pain TRAMADOL HCL 83183045137 Active Giles Tatum APRN Active PREDNISONE 5 MG TAB Take one po qod PREDNISONE 64609829813 No Longer Active Simon Castillo MD Active GLYBURIDE 5 MG TAB Take one by mouth daily GLYBURIDE 63042522090 No Longer Active Simon Castillo MD Active LEVAQUIN 750 MG TABS 1 po qod x 5 doses LEVOFLOXACIN 19239077640 No Longer Active Simon Castillo MD Active CETIRIZINE HCL 10 MG TABS 1 po qd as needed for allergies CETIRIZINE HCL 82158852584 No Longer Active Simon Castillo MD Active FISH OIL 1000 MG CPDR 1 pill by mouth twice daily for cholesterol OMEGA -3 FATTY ACIDS 98445247691 Active Simon Castillo MD Active BILBERRY CAPS 1 tab daily BILBERRY (VACCINIUM MYRTILLUS) CAPS 14373176680 Active Simon Castillo MD Active ATENOLOL 50 MG TABS Take one by mouth daily ATENOLOL 82948037460 No Longer Active Simon Castillo MD Active FLONASE 50 MCG/ACT SUSP 2 puffs in each nostril daily FLUTICASONE PROPIONATE 85166270407 No Longer Active Simon Castillo MD Active GLYBURIDE 5 MG TAB Take one by mouth daily GLYBURIDE 36405423450 No Longer Active Simon Castillo MD Active SYMBICORT 80-4.5 MCG/ACT AERO 2 puffs twice a day BUDESONIDE-FORMOTEROL FUMARATE 92210534442 No Longer Active Simon Castillo MD Active PREDNISONE 20 MG TAB 2 tabs daily for 4 days, 1 tab daily for 4 days, 1/2 tab daily for 4 days PREDNISONE 63044633479 No Longer Active Simon Castillo MD Active AMOXICILLIN 500 MG CAPS 2 po BID x 10 days AMOXICILLIN 61673051914 No Longer Active Simon Castillo MD Active METFORMIN HCL 1000 MG TABS 1 by mounth twice a day METFORMIN HCL 20635960218 No Longer Active Simon Castillo MD Active LUTEIN-ZEAXANTHIN 6-1 MG TABS Take 2 by mouth daily LUTEIN-ZEAXANTHIN 07351610952 Active Simon Castillo MD Active IBUPROFEN 800 MG TABS Take 1 tab every 6 hrs prn IBUPROFEN 22283481861 No Longer Active Simon Castillo MD Active GLYBURIDE 2.5 MG TABS Take one by mouth daily GLYBURIDE 66552953120 No Longer Active Simon Castillo MD Active LANCETS MISC 2 qd LANCETS 20005356576 Active Pamela Conde Active ACACIA CONTOUR TEST STRP Use with testing twice daily GLUCOSE BLOOD 61379456246 Active Simon Castillo MD Active ACACIA ASPIRIN 325 MG TABS Take one by mouth daily ASPIRIN 90819250286 Active Pamela Conde Active GLYBURIDE 2.5 MG TABS Take one by mouth daily GLYBURIDE 2.5 MG TABS 486143 GLYBURIDE Inactive PREDNISONE 20 MG TAB 2 tabs daily for 4 days, 1 tab daily for 4 days, 1/2 tab daily for 4 days PREDNISONE 20 MG TAB 442062 PREDNISONE Inactive SYMBICORT 80-4.5 MCG/ACT AERO 2 puffs twice a day SYMBICORT 80-4.5 MCG/ACT AERO BUDESONIDE-FORMOTEROL FUMARATE Inactive FLONASE 50 MCG/ACT SUSP 2 puffs in each nostril daily FLONASE 50 MCG/ACT SUSP 281512 FLUTICASONE PROPIONATE Inactive ATENOLOL 50 MG TABS Take one by mouth daily ATENOLOL 50 MG TABS 774249 ATENOLOL Inactive CETIRIZINE HCL 10 MG TABS 1 po qd as needed for allergies CETIRIZINE HCL 10 MG TABS 3094150 CETIRIZINE HCL Inactive LEVAQUIN 750 MG TABS 1 po qod x 5 doses LEVAQUIN 750 MG TABS 110441 LEVOFLOXACIN Inactive GLYBURIDE 5 MG TAB Take one by mouth daily GLYBURIDE 5 MG TAB 635021 GLYBURIDE Inactive PREDNISONE 5 MG TAB Take one po qod PREDNISONE 5 MG TAB 458696 PREDNISONE Inactive PREDNISONE 20 MG TAB 2 tabs daily for 5 days, then 1 daily for 5 days PREDNISONE 20 MG TAB 923816 PREDNISONE Inactive FLONASE 50 MCG/ACT SUSP 2 puffs in each nostril daily FLONASE 50 MCG/ACT SUSP 405787 FLUTICASONE PROPIONATE Inactive SYMBICORT 160-4.5 MCG/ACT AERO 2 puff BID SYMBICORT 160-4.5 MCG/ACT AERO BUDESONIDE-FORMOTEROL FUMARATE Inactive PREDNISONE 5 MG TABS 1 po qod PREDNISONE 5 MG TABS 897413 PREDNISONE Inactive PREDNISONE 20 MG TAB 1 tablet daily for airway inflammation 02/25 PREDNISONE 20 MG TAB 492217 PREDNISONE Inactive SULFASALAZINE 500 MG ORAL TBEC 2 tabs BID SULFASALAZINE 500 MG ORAL TBEC 694701 SULFASALAZINE Inactive LASIX 20 MG TAB 1 tablet by mouth daily x 2 days LASIX 20 MG TAB 039035 FUROSEMIDE Inactive AMOXICILLIN 500 MG CAPS 2 po BID x 10 days AMOXICILLIN 500 MG CAPS 411167 AMOXICILLIN Inactive GLYBURIDE 5 MG TAB Take one by mouth daily GLYBURIDE 5 MG TAB 932729 GLYBURIDE Inactive AZITHROMYCIN 250 MG TABS 2 po qd x 1 day, then 1 po qd x 4 days AZITHROMYCIN 250 MG TABS 2646143 AZITHROMYCIN Inactive PREDNISONE 20 MG TAB 2 tabs daily for 3 days, 1 tab daily for 3 days, 1/2 tab daily for 2 days PREDNISONE 20 MG TAB 080309 PREDNISONE Inactive PREDNISONE 20 MG TAB 2 tabs daily for 5 days, then 1 daily for 5 days, then 0.5 for 4 days PREDNISONE 20 MG TAB 025975 PREDNISONE Inactive AZITHROMYCIN 250 MG TABS 2 po qd x 1 day, then 1 po qd x 4 days AZITHROMYCIN 250 MG TABS 5032510 AZITHROMYCIN Inactive PREDNISONE 20 MG TAB 2 tabs daily for 3 days, 1 tab daily for 3 days, 1/2 tab daily for 2 days PREDNISONE 20 MG TAB 142421 PREDNISONE Inactive Immunizations Vaccine Administration Date Value [...] Panel - Chemistry sodium, serum 132 mmol/L 128-939 2906/10/26 carbon dioxide, venous blood 22.8 mmol/L 21.0-32.0 potassium, serum 5.4 mmol/L 3.5-5.2 chloride, serum 98 mmol/L 98-107 blood glucose 424 mg/dL 65-110 urea nitrogen, blood 40 mg/dL 7-18 creatinine, serum 2.26 mg/dL 0.55-1.30 alanine aminotransferase (SGPT), serum 29 U/L 12-78 aspartate aminotransferase (SGOT), serum 24 U/L 15-37 calcium, serum 8.6 mg/dL 8.5-10.1 bilirubin, serum, total 0.60 mg/dL 0.00-1.00 sodium, serum 137 mmol/L 991-600 7604/06/06 carbon dioxide, venous blood 24.9 mmol/L 21.0-32.0 [...] % 11.6-14.8 platelet count 210 10^3/MM^3 10*3/mm3 068-305 6223/10/26 leukocyte count, blood 10.3 10^3/MM^3 10*3/mm3 4.6-10.2 [...] Panel - Chemistry sodium, serum 139 mmol/L 256-727 1136/03/17 carbon dioxide, venous blood 29.0 mmol/L 21.0-32.0 [...] Rate - Chemistry sodium, serum 136 mmol/L 278-436 2773/09/18 carbon dioxide, venous blood 24.3 mmol/L 21.0-32.0 [...] HGBA1C - Chemistry sodium, serum 139 mmol/L 027-620 0521/07/09 potassium, serum 5.4 mmol/L 3.5-5.2 chloride, serum [...] 8.5 % 4.3-6.0 sodium, serum 137 mmol/L 674-162 2192/02/12 potassium, serum 5.1 mmol/L 3.5-5.2 chloride, serum 103 mmol/L 98-107 carbon dioxide, venous blood 24.4 mmol/L 21.0-32.0 blood glucose 261 mg/dL 65-110 calcium, serum 9.0 mg/dL 8.5-10.1 urea nitrogen, blood 44 mg/dL 7-18 creatinine, serum 2.37 mg/dL 0.55-1.30 Lab Report: Lipid Panel - Chemistry cholesterol, serum 139 mg/dL 930-050 6094/09/10 triglyceride, serum, fasting 176 mg/dL 30-200 HDL cholesterol, serum 45 mg/dL 32-96 LDL cholesterol, serum 59 mg/dL 0-130 Lab Report: MICROALBUMIN - Chemistry albumin/creatinine ratio, urine 30 - 300 mg/g mg/g{creat} 0-29 Lab Report: MICROALBUMIN - Lab microalbumin, urine 30 0-19 Lab Report: Uric Acid - Chemistry uric acid, serum 6.3 mg/dL 2.6-7.2 Encounters Code Encounter Date Provider Facility CPT-17376 Level 3 Est. Patient 09:18:25 CDT Simon Castillo MD [facility] CPT-85569 Level 4 Est. Patient 11:51:23 CDT Simon Castillo MD [facility] CPT-92604 Level 4 Est. Patient 14:32:04 CDT Neto Oshea DO [facility] CPT-73580 Level 3 Est. Patient 08:41:43 CDT Jiviraina Lolyl [facility] CPT-90658 Level 3 Est. Patient 08:40:53 CDT Jillina Frazell [facility] CPT-98564 Level 3 Est. Patient 08:36:52 CDT Jillina Frazell [facility] CPT-01861 Level 3 Est. Patient 09:08:44 CDT Jillina Frazell [facility] CPT-82605 Level 4 Est. Patient 09:17:32 CALL CIRCUIT WORKER Simon Castillo MD [facility] CPT-51756 Level 3 Est. Patient 11:22:22 CALL CIRCUIT WORKER Simon Castillo MD [facility] CPT-96471 Level 3 Est. Patient 09:02:14 CDT Simon Castillo MD [facility] CPT-31484 Level 4 Est. Patient 08:47:25 CDT Simon Castillo MD [facility] CPT-46780 Level 4 Est. Patient 10:17:25 CDT Simon Castillo MD [facility] CPT-53679 Level 4 Est. Patient 10:10:09 CALL CIRCUIT WORKER Simon Castillo MD [facility] CPT-18896 Level 4 Est. Patient 11:48:19 CDT Simon Castillo MD [facility] CPT-01793 Level 4 Est. Patient 08:59:29 CDT Simon Castillo MD [facility] CPT-03291 Level 4 Est. Patient 10:52:51 CALL CIRCUIT WORKER Simon Castillo MD [facility] CPT-89449 Level 4 Est. Patient 11:50:30 CDT Simon Castillo MD [facility] CPT-95273 Level 4 Est. Patient 09:54:46 CDT Simon Castillo MD [facility] CPT-49294 Level 3 Est. Patient 11:10:14 CDT Simon Castillo MD [facility] CPT-53648 Level 4 Est. Patient 09:44:02 CDT Simon Castillo MD [facility] CPT-47490 Level 3 Est. Patient 09:27:48 CDT Simon Castillo MD [facility] CPT-67191 Level 3 Est. Patient 09:58:06 CALL CIRCUIT WORKER Simon Castillo MD [facility] CPT-13842 Level 3 Est. Patient 09:51:35 CDT Simon Castillo MD [facility] Procedures Code Procedure Name Date Entry Date Standard Description CPT-G0438 Initial Annual Wellness Exam 08:57:30 CDT CPT-61453 Chest 2V Frontal and Lat - XRAY USE ONLY 09:00:14 CDT CPT-42737 Venipuncture Draw Fee 13:33:02 CDT CPT-09321 Bone Density 09:37:49 CALL CIRCUIT WORKER CPT-68025 Fluzone High Dose 17:20:42 CDT CPT-18865 Prevnar 13 17:20:42 CDT CPT-15625 Administration 2+ single or combination vaccines inc oral 17:20:42 CDT CPT-82515 Administration single or combination vaccine inc oral 17 :20:42 CDT CPT-22429 Hand comp min 3V 09:24:38 CDT CPT-56505 Venipuncture Draw Fee 08:07:29 CALL CIRCUIT WORKER CPT-76942 Venipuncture Draw Fee 09:02:51 CALL CIRCUIT WORKER CPT-74454 Venipuncture Draw Fee 12:45:08 CALL CIRCUIT WORKER CPT-62930 Venipuncture Draw Fee 09:25:31 CDT CPT-G0008 Administration of Influenza Virus Vaccine 14:41:29 CDT CPT-56767 Fluzone High-Dose Intramuscular Suspension 14:41:29 CDT CPT-Cryo Cryotherapy 11:48:20 CDT CPT-41931 EKG Trac and Interp 09:21:58 CDT CPT-70600 Chest 2V Frontal and Lat 09:21:58 CDT CPT-Cryo Cryotherapy 10:54:51 CALL CIRCUIT WORKER CPT-11013 Administration 2+ single or combination vaccines inc oral 10:42:19 CDT CPT-14598 Administration single or combination vaccine inc oral 10 :42:19 CDT CPT-90692 Pneumovax 10:42:19 CDT CPT-91209 Influenza High Dose age 65+ 10:42:19 CDT CPT-82048 Administration single or combination vaccine inc oral 13 :18:54 CDT CPT-49894 Influenza High Dose age 65+ 13:18:54 CDT CPT-89389 Venipuncture Draw Fee 11:53:16 CDT CPT-11640 LS spine comp w obliq 11:03:13 CDT CPT-Cryo Cryotherapy 08:27:16 CALL CIRCUIT WORKER CPT-44227 Administration single or combination vaccine inc oral 10 :56:34 CDT CPT-00557 Influenza High Dose age 65+ 10:56:34 CDT
--- OUTSIDE RECORDS SUMMARY | 2018-03-31 17:44 | XMS REPORT | Clinical Summary ---
Author Author Admin, E Organization [facility] Address Unknown Phone Unavailable Allergies, Adverse Reactions, Alerts Allergy Name Reaction Description Start Date Severity Status Provider No Known Allergies [facility] Conditions or Problems Problem Name Problem [...] Simon Castillo MD Rheumatoid arthritis Steroid use, rat exterminator V58.65 Resolved Simon Castillo MD Long-term [...] Rheumatoid arthritis Pharyngitis 462 Active Jillina Frazell [employer]ES[employer] ADMINISTRATOR Acute pharyngitis Dyspnea 786.09 Active Jillina Frazell [employer] ADMINISTRATOR Other dyspnea and respiratory abnormality Peripheral edema 782.3 Active Jillina Frazell SALESFORCE ADMINISTRATOR Edema 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 Simon Castillo MD Other specified erythematous conditions DIABETES ICD-V18.0 Inactive Simon Castillo MD FH LUNG CANCER ICD-V16.1 Inactive Simon Castillo MD ABDOMINAL TENDERNESS ICD-789.60 Inactive Simon Castillo MD CHEST WALL PAIN, HX OF ICD-V15.89 Inactive Simon Castillo MD SEBORRHEIC KERATOSIS ICD-702.19 Inactive Simno Castillo MD BRONCHITIS, ACUTE ICD-466.0 Inactive Simon [...] ICD-729.5 Inactive Simon Castillo MD Steroid use, rat exterminator ICD-V58.65 Inactive Simon Castillo MD Hand pain, bilateral ICD-729.5 Kerry Castillo MD Medication List Medication Instructions Start Date Stop Date Generic Name NDC Status Provider Patient Instruction TRIAMCINOLONE ACETONIDE 0.1 % OINT Apply to affected areas TID for up to 2 weeks TRIAMCINOLONE ACETONIDE 73110291429 No Longer Active Simon Castillo MD Active LASIX 20 MG TAB 1 tablet by mouth daily x 2 days FUROSEMIDE 14241642976 No Longer Active Simon Castillo MD Active SULFASALAZINE 500 MG ORAL TBEC 2 tabs BID SULFASALAZINE 92784607252 No Longer Active Neto Oshea DO Active PREDNISONE 20 MG TAB 2 tabs daily for 3 days, 1 tab daily for 3 days, 1/2 tab daily for 2 days PREDNISONE 17748246798 No Longer Active Jillina Frazelalejandrina HEMPHILL Active PREDNISONE 20 MG TAB 1 tablet daily for airway inflammation 02/25 PREDNISONE 88623647328 No Longer Active Jillina Frazell SALESFORCE ADMINISTRATOR Active CLARITIN 10 MG TAB 1 tablet by mouth daily as needed for allergies LORATADINE 77358167887 Active Jillina Lolyl [employer]ESFORCE ADMINISTRATOR Active AZITHROMYCIN 250 MG TABS 2 po qd x 1 day, then 1 po qd x 4 days AZITHROMYCIN 62493147825 No Longer Active Jillina Frazell SALESFORCE ADMINISTRATOR Active GLIMEPIRIDE 2 MG ORAL TABS 1 po q a.m. GLIMEPIRIDE 03828162326 Active Simon Castillo MD Active HYDROCODONE-ACETAMINOPHEN 5-325 MG TABS 1 tab by mouth 8 hours as needed for pain HYDROCODONE-ACETAMINOPHEN 70815958488 Active Simon Castillo MD Active TRAMADOL HCL 50 MG TABS 1 po q6hr PRN Pain TRAMADOL HCL 27745122808 No Longer Active Simon Castillo MD Active PREDNISONE 5 MG TAB 1-2 tabs daily for rheumatoid arthritis PREDNISONE 46647352649 Active Simon Castillo MD Active PREDNISONE 5 MG TABS 1 po qod PREDNISONE 63369848124 No Longer Active Simon Castillo MD Active SYMBICORT 160-4.5 MCG/ACT AERO 2 puff BID BUDESONIDE- FORMOTEROL FUMARATE 71125373887 No Longer Active Simon Castillo MD Active FLONASE 50 MCG/ACT SUSP 2 puffs in each nostril daily FLUTICASONE PROPIONATE 18187373361 No Longer Active Simon Castillo MD Active PREDNISONE 20 MG TAB 2 tabs daily for 5 days, then 1 daily for 5 days PREDNISONE 73772998197 No Longer Active Simon Castillo MD Active PREDNISONE 20 MG TAB 2 tabs daily for 5 days, then 1 daily for 5 days, then 0.5 for 4 days PREDNISONE 30349081230 No Longer Active Simon Castillo MD Active CLOTRIMAZOLE 1 % EXT CREA Apply to affected area of feet twice daily PRN Rash CLOTRIMAZOLE 48504666051 Active Simon Castillo MD Active PREDNISONE 20 MG TAB 2 tabs daily for 3 days, 1 tab daily for 3 days, 1/2 tab daily for 2 days PREDNISONE 13990394536 No Longer Active Simon Castillo MD Active AZITHROMYCIN 250 MG TABS 2 po qd x 1 day, then 1 po qd x 4 days AZITHROMYCIN 36487964343 No Longer Active Simon Castillo MD Active LISINOPRIL 10 MG TABS 1 tablet by mouth daily LISINOPRIL 80870259399 Active Simon Castillo MD Active CARVEDILOL 6.25 MG TABS 1 po BID CARVEDILOL 67017412297 Active Simon Castillo MD Active LISINOPRIL-HYDROCHLOROTHIAZIDE 20-12.5 MG TABS 1/2 tab by mouth daily LISINOPRIL-HYDROCHLOROTHIAZIDE 57006102267 No Longer Active Simon Castillo MD Active TRAMADOL HCL 50 MG TABS 1-2 tablets every 6 hours as needed for pain TRAMADOL HCL 26169943894 Active Giles Tatum APRN Active PREDNISONE 5 MG TAB Take one po qod PREDNISONE 31871676104 No Longer Active Simon Castillo MD Active GLYBURIDE 5 MG TAB Take one by mouth daily GLYBURIDE 05367720565 No Longer Active Simon Castillo MD Active LEVAQUIN 750 MG TABS 1 po qod x 5 doses LEVOFLOXACIN 59124272713 No Longer Active Simon Castillo MD Active CETIRIZINE HCL 10 MG TABS 1 po qd as needed for allergies CETIRIZINE HCL 53431335339 No Longer Active Simon Castillo MD Active FISH OIL 1000 MG CPDR 1 pill by mouth twice daily for cholesterol OMEGA -3 FATTY ACIDS 36988629092 Active Simon Castillo MD Active BILBERRY CAPS 1 tab daily BILBERRY (VACCINIUM MYRTILLUS) CAPS 00554464529 Active Simon Castillo MD Active ATENOLOL 50 MG TABS Take one by mouth daily ATENOLOL 45405620905 No Longer Active Simon Castillo MD Active FLONASE 50 MCG/ACT SUSP 2 puffs in each nostril daily FLUTICASONE PROPIONATE 25815123492 No Longer Active Simon Castillo MD Active GLYBURIDE 5 MG TAB Take one by mouth daily GLYBURIDE 24190794358 No Longer Active Simon Castillo MD Active SYMBICORT 80-4.5 MCG/ACT AERO 2 puffs twice a day BUDESONIDE-FORMOTEROL FUMARATE 90863859539 No Longer Active Simon Castillo MD Active PREDNISONE 20 MG TAB 2 tabs daily for 4 days, 1 tab daily for 4 days, 1/2 tab daily for 4 days PREDNISONE 40129602704 No Longer Active Simon Castillo MD Active AMOXICILLIN 500 MG CAPS 2 po BID x 10 days AMOXICILLIN 45091573779 No Longer Active Simon Castillo MD Active METFORMIN HCL 1000 MG TABS 1 by mounth twice a day METFORMIN HCL 73163182589 No Longer Active Simon Castillo MD Active LUTEIN-ZEAXANTHIN 6-1 MG TABS Take 2 by mouth daily LUTEIN-ZEAXANTHIN 90649763322 Active Simon Castillo MD Active IBUPROFEN 800 MG TABS Take 1 tab every 6 hrs prn IBUPROFEN 78869145558 No Longer Active Simon Castillo MD Active GLYBURIDE 2.5 MG TABS Take one by mouth daily GLYBURIDE 64952468039 No Longer Active Simon Castillo MD Active LANCETS MISC 2 qd LANCETS 11979821070 Active Pamela Conde Active ACACIA CONTOUR TEST STRP Use with testing twice daily GLUCOSE BLOOD 11329675737 Active Simon Castillo MD Active ACACIA ASPIRIN 325 MG TABS Take one by mouth daily ASPIRIN 73012813583 Active Pamela Conde Active GLYBURIDE 2.5 MG TABS Take one by mouth daily GLYBURIDE 2.5 MG TABS 606033 GLYBURIDE Inactive PREDNISONE 20 MG TAB 2 tabs daily for 4 days, 1 tab daily for 4 days, 1/2 tab daily for 4 days PREDNISONE 20 MG TAB 490196 PREDNISONE Inactive SYMBICORT 80-4.5 MCG/ACT AERO 2 puffs twice a day SYMBICORT 80-4.5 MCG/ACT AERO BUDESONIDE-FORMOTEROL FUMARATE Inactive FLONASE 50 MCG/ACT SUSP 2 puffs in each nostril daily FLONASE 50 MCG/ACT SUSP FLUTICASONE PROPIONATE Inactive ATENOLOL 50 MG TABS Take one by mouth daily ATENOLOL 50 MG TABS 626050 ATENOLOL Inactive CETIRIZINE HCL 10 MG TABS 1 po qd as needed for allergies CETIRIZINE HCL 10 MG TABS 2626393 CETIRIZINE HCL Inactive LEVAQUIN 750 MG TABS 1 po qod x 5 doses LEVAQUIN 750 MG TABS 959559 LEVOFLOXACIN Inactive GLYBURIDE 5 MG TAB Take one by mouth daily GLYBURIDE 5 MG TAB 164982 GLYBURIDE Inactive PREDNISONE 5 MG TAB Take one po qod PREDNISONE 5 MG TAB 509181 PREDNISONE Inactive PREDNISONE 20 MG TAB 2 tabs daily for 5 days, then 1 daily for 5 days PREDNISONE 20 MG TAB 539715 PREDNISONE Inactive FLONASE 50 MCG/ACT SUSP 2 puffs in each nostril daily FLONASE 50 MCG/ACT SUSP FLUTICASONE PROPIONATE Inactive SYMBICORT 160-4.5 MCG/ACT AERO 2 puff BID SYMBICORT 160-4.5 MCG/ACT AERO BUDESONIDE-FORMOTEROL FUMARATE Inactive PREDNISONE 5 MG TABS 1 po qod PREDNISONE 5 MG TABS 768931 PREDNISONE Inactive PREDNISONE 20 MG TAB 1 tablet daily for airway inflammation 02/25 PREDNISONE 20 MG TAB 193207 PREDNISONE Inactive SULFASALAZINE 500 MG ORAL TBEC 2 tabs BID SULFASALAZINE 500 MG ORAL TBEC 561346 SULFASALAZINE Inactive LASIX 20 MG TAB 1 tablet by mouth daily x 2 days LASIX 20 MG TAB 950248 FUROSEMIDE Inactive AMOXICILLIN 500 MG CAPS 2 po BID x 10 days AMOXICILLIN 500 MG CAPS 196608 AMOXICILLIN Inactive GLYBURIDE 5 MG TAB Take one by mouth daily GLYBURIDE 5 MG TAB 779885 GLYBURIDE Inactive AZITHROMYCIN 250 MG TABS 2 po qd x 1 day, then 1 po qd x 4 days AZITHROMYCIN 250 MG TABS 1629598 AZITHROMYCIN Inactive PREDNISONE 20 MG TAB 2 tabs daily for 3 days, 1 tab daily for 3 days, 1/2 tab daily for 2 days PREDNISONE 20 MG TAB 161014 PREDNISONE Inactive PREDNISONE 20 MG TAB 2 tabs daily for 5 days, then 1 daily for 5 days, then 0.5 for 4 days PREDNISONE 20 MG TAB 490378 PREDNISONE Inactive AZITHROMYCIN 250 MG TABS 2 po qd x 1 day, then 1 po qd x 4 days AZITHROMYCIN 250 MG TABS 6861673 AZITHROMYCIN Inactive PREDNISONE 20 MG TAB 2 tabs daily for 3 days, 1 tab daily for 3 days, 1/2 tab daily for 2 days PREDNISONE 20 MG TAB 774966 PREDNISONE Inactive TRIAMCINOLONE ACETONIDE 0.1 % OINT Apply to affected areas TID for up to 2 weeks TRIAMCINOLONE ACETONIDE 0.1 % OINT 1755137 TRIAMCINOLONE ACETONIDE Inactive Immunizations Vaccine Administration Date [...] Panel - Chemistry sodium, serum 137 mmol/L 023-292 8032/06/06 carbon dioxide, venous blood 24.9 mmol/L 21.0-32.0 [...] Panel - Chemistry sodium, serum 139 mmol/L 951-439 6035/03/17 carbon dioxide, venous blood 29.0 mmol/L 21.0-32.0 [...] 8.5 % 4.3-6.0 sodium, serum 137 mmol/L 990-277 9086/02/12 potassium, serum 5.1 mmol/L 3.5-5.2 chloride, serum 103 mmol/L 98-107 carbon dioxide, venous blood 24.4 mmol/L 21.0-32.0 blood glucose 261 mg/dL 65-110 calcium, serum 9.0 mg/dL 8.5-10.1 urea nitrogen, blood 44 mg/dL 7-18 creatinine, serum 2.37 mg/dL 0.55-1.30 Lab Report: Uric Acid - Chemistry uric acid, serum 6.3 mg/dL 2.6-7.2 Encounters Code Encounter Date Provider Facility CPT-02821 Level 3 Est. Patient 09:18:25 CDT Simon Castillo MD [facility] CPT-21736 Level 4 Est. Patient 11:51:23 CDT Simon Castillo MD [facility] CPT-42592 Level 4 Est. Patient 14:32:04 CDT Neto Oshea DO [facility] CPT-93280 Level 3 Est. Patient 08:41:43 CDT Giles Tatum APRN [facility] CPT-38171 Level 3 Est. Patient 08:40:53 CDT Jillina Frazell [facility] CPT-20673 Level 3 Est. Patient 08:36:52 CDT Jonathanmeli Nashtico [facility] CPT-61256 Level 3 Est. Patient 09:08:44 CDT Giles Nashtico [facility] CPT-51468 Level 4 Est. Patient 09:17:32 GRAPHIC ILLUSTRATOR Simon Castillo MD [facility] CPT-14960 Level 3 Est. Patient 11:22:22 GRAPHIC ILLUSTRATOR Simon Castillo MD [facility] CPT-73776 Level 3 Est. Patient 09:02:14 CDT Simon Castillo MD [facility] CPT-87988 Level 4 Est. Patient 08:47:25 CDT Simon Castillo MD [facility] CPT-37715 Level 4 Est. Patient 10:17:25 CDT Simon Castillo MD [facility] CPT-37161 Level 4 Est. Patient 10:10:09 GRAPHIC ILLUSTRATOR Simon Castillo MD [facility] CPT-77495 Level 4 Est. Patient 11:48:19 CDT Simon Castillo MD [facility] CPT-41071 Level 4 Est. Patient 08:59:29 CDT Simon Castillo MD [facility] CPT-95264 Level 4 Est. Patient 10:52:51 GRAPHIC ILLUSTRATOR Simon Castillo MD [facility] CPT-54323 Level 4 Est. Patient 11:50:30 CDT Simon Castillo MD [facility] CPT-43596 Level 4 Est. Patient 09:54:46 CDT Simon Castillo MD [facility] CPT-51693 Level 3 Est. Patient 11:10:14 CDT Simon Castillo MD [facility] CPT-47177 Level 4 Est. Patient 09:44:02 CDT Simon Castillo MD [facility] CPT-01982 Level 3 Est. Patient 09:27:48 CDT Simon Castillo MD [facility] CPT-09203 Level 3 Est. Patient 09:58:06 GRAPHIC ILLUSTRATOR Simon Castillo MD [facility] CPT-83879 Level 3 Est. Patient 09:51:35 CDT Simon Castillo MD [facility] Procedures Code Procedure Name Date Entry Date Standard Description CPT-43884 First Vx - Ix admin for Medicare patients 17:33:39 CDT CPT-68976 Fluzone High-Dose Intramuscular Suspension 17:33:39 CDT CPT-G0438 Initial Annual Wellness Exam 08:57:30 CDT CPT-41206 Chest 2V Frontal and Lat - XRAY USE ONLY 09:00:14 CDT CPT-67827 Venipuncture Draw Fee 13:33:02 CDT CPT-43243 Bone Density 09:37:49 GRAPHIC ILLUSTRATOR CPT-92086 Fluzone High Dose 17:20:42 CDT CPT-58350 Prevnar 13 17:20:42 CDT CPT-31972 Administration 2+ single or combination vaccines inc oral 17:20:42 CDT CPT-41806 Administration single or combination vaccine inc oral 17 :20:42 CDT CPT-80755 Hand comp min 3V 09:24:38 CDT CPT-91786 Venipuncture Draw Fee 08:07:29 GRAPHIC ILLUSTRATOR CPT-89639 Venipuncture Draw Fee 09:02:51 GRAPHIC ILLUSTRATOR CPT-23151 Venipuncture Draw Fee 12:45:08 GRAPHIC ILLUSTRATOR CPT-77414 Venipuncture Draw Fee 09:25:31 CDT CPT-G0008 Administration of Influenza Virus Vaccine 14:41:29 CDT CPT-40130 Fluzone High-Dose Intramuscular Suspension 14:41:29 CDT CPT-Cryo Cryotherapy 11:48:20 CDT CPT-92281 EKG Trac and Interp 09:21:58 CDT CPT-92037 Chest 2V Frontal and Lat 09:21:58 CDT CPT-Cryo Cryotherapy 10:54:51 GRAPHIC ILLUSTRATOR CPT-67999 Administration 2+ single or combination vaccines inc oral 10:42:19 CDT CPT-24818 Administration single or combination vaccine inc oral 10 :42:19 CDT CPT-35788 Pneumovax 10:42:19 CDT CPT-51926 Influenza High Dose age 65+ 10:42:19 CDT CPT-31525 Administration single or combination vaccine inc oral 13 :18:54 CDT CPT-33841 Influenza High Dose age 65+ 13:18:54 CDT CPT-19686 Venipuncture Draw Fee 11:53:16 CDT CPT-66759 LS spine comp w obliq 11:03:13 CDT CPT-Cryo Cryotherapy 08:27:16 GRAPHIC ILLUSTRATOR CPT-08540 Administration single or combination vaccine inc oral 10 :56:34 CDT CPT-62137 Influenza High Dose age 65+ 10:56:34 CDT
--- OUTSIDE RECORDS SUMMARY | 2018-03-31 17:45 | XMS REPORT | Clinical Summary ---
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 Acute pharyngitis Dyspnea 786.09 Active Jillina Frazell LIGHTING ENGINEERING TECHNICIAN Other dyspnea and respiratory abnormality Peripheral edema 782.3 Active Jillina Frazell LIGHTING ENGINEERING TECHNICIAN Edema 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 Simon Castillo [...] ICD-729.5 Inactive Simon Castillo MD Steroid use, resolute professional ICD-V58.65 Inactive Simon Castillo MD Hand pain, bilateral ICD-729.5 Kerry Castillo MD Medication List Medication Instructions Start Date Stop Date Generic Name NDC Status Provider Patient Instruction TRIAMCINOLONE ACETONIDE 0.1 % OINT Apply to affected areas TID for up to 2 weeks TRIAMCINOLONE ACETONIDE 76763983576 No Longer Active Simon Castillo MD Active LASIX 20 MG TAB 1 tablet by mouth daily x 2 days FUROSEMIDE 54562518050 No Longer Active Simon Castillo MD Active SULFASALAZINE 500 MG ORAL TBEC 2 tabs BID SULFASALAZINE 71879791368 No Longer Active Neto Oshea DO Active PREDNISONE 20 MG TAB 2 tabs daily for 3 days, 1 tab daily for 3 days, 1/2 tab daily for 2 days PREDNISONE 82927363268 No Longer Active Jillina Frazelalejandrina HEMPHILL Active PREDNISONE 20 MG TAB 1 tablet daily for airway inflammation 02/25 PREDNISONE 68805086709 No Longer Active Jillina Frazell LIGHTING ENGINEERING TECHNICIAN Active CLARITIN 10 MG TAB 1 tablet by mouth daily as needed for allergies LORATADINE 92859359181 Active Jillina Lolyl LIGHTING ENGINEERING TECHNICIAN Active AZITHROMYCIN 250 MG TABS 2 po qd x 1 day, then 1 po qd x 4 days AZITHROMYCIN 80206147055 No Longer Active Jillina Frazell LIGHTING ENGINEERING TECHNICIAN Active GLIMEPIRIDE 2 MG ORAL TABS 1 po q a.m. GLIMEPIRIDE 13648493343 Active Simon Castillo MD Active HYDROCODONE-ACETAMINOPHEN 5-325 MG TABS 1 tab by mouth 8 hours as needed for pain HYDROCODONE-ACETAMINOPHEN 15595905910 Active Simon Castillo MD Active TRAMADOL HCL 50 MG TABS 1 po q6hr PRN Pain TRAMADOL HCL 11426580896 No Longer Active Simon Castillo MD Active PREDNISONE 5 MG TAB 1-2 tabs daily for rheumatoid arthritis PREDNISONE 01706115363 Active Simon Castillo MD Active PREDNISONE 5 MG TABS 1 po qod PREDNISONE 26789809537 No Longer Active Simon Castillo MD Active SYMBICORT 160-4.5 MCG/ACT AERO 2 puff BID BUDESONIDE- FORMOTEROL FUMARATE 17422424586 No Longer Active Simon Castillo MD Active FLONASE 50 MCG/ACT SUSP 2 puffs in each nostril daily FLUTICASONE PROPIONATE 41492108089 No Longer Active Simon Castillo MD Active PREDNISONE 20 MG TAB 2 tabs daily for 5 days, then 1 daily for 5 days PREDNISONE 96083365331 No Longer Active Simon Castillo MD Active PREDNISONE 20 MG TAB 2 tabs daily for 5 days, then 1 daily for 5 days, then 0.5 for 4 days PREDNISONE 32760025108 No Longer Active Simon Castillo MD Active CLOTRIMAZOLE 1 % EXT CREA Apply to affected area of feet twice daily PRN Rash CLOTRIMAZOLE 53917367763 Active Simon Castillo MD Active PREDNISONE 20 MG TAB 2 tabs daily for 3 days, 1 tab daily for 3 days, 1/2 tab daily for 2 days PREDNISONE 49353145090 No Longer Active Simon Castillo MD Active AZITHROMYCIN 250 MG TABS 2 po qd x 1 day, then 1 po qd x 4 days AZITHROMYCIN 98647766204 No Longer Active Simon Castillo MD Active LISINOPRIL 10 MG TABS 1 tablet by mouth daily LISINOPRIL 34659857707 Active Simon Castillo MD Active CARVEDILOL 6.25 MG TABS 1 po BID CARVEDILOL 41148328123 Active Simon Castillo MD Active LISINOPRIL-HYDROCHLOROTHIAZIDE 20-12.5 MG TABS 1/2 tab by mouth daily LISINOPRIL-HYDROCHLOROTHIAZIDE 78749727442 No Longer Active Simon Castillo MD Active TRAMADOL HCL 50 MG TABS 1-2 tablets every 6 hours as needed for pain TRAMADOL HCL 84409769554 Active Giles Tatum APRN Active PREDNISONE 5 MG TAB Take one po qod PREDNISONE 93491159400 No Longer Active Simon Castillo MD Active GLYBURIDE 5 MG TAB Take one by mouth daily GLYBURIDE 61263644568 No Longer Active Simon Castillo MD Active LEVAQUIN 750 MG TABS 1 po qod x 5 doses LEVOFLOXACIN 77778684718 No Longer Active Simon Castillo MD Active CETIRIZINE HCL 10 MG TABS 1 po qd as needed for allergies CETIRIZINE HCL 32673448383 No Longer Active Simon Castillo MD Active FISH OIL 1000 MG CPDR 1 pill by mouth twice daily for cholesterol OMEGA -3 FATTY ACIDS 15897231557 Active Simon Castillo MD Active BILBERRY CAPS 1 tab daily BILBERRY (VACCINIUM MYRTILLUS) CAPS 29774051057 Active Simon Castillo MD Active ATENOLOL 50 MG TABS Take one by mouth daily ATENOLOL 41415070444 No Longer Active Simon Castillo MD Active FLONASE 50 MCG/ACT SUSP 2 puffs in each nostril daily FLUTICASONE PROPIONATE 24352998437 No Longer Active Simon Castillo MD Active GLYBURIDE 5 MG TAB Take one by mouth daily GLYBURIDE 28540063568 No Longer Active Simon Castillo MD Active SYMBICORT 80-4.5 MCG/ACT AERO 2 puffs twice a day BUDESONIDE-FORMOTEROL FUMARATE 70341042765 No Longer Active Simon Castillo MD Active PREDNISONE 20 MG TAB 2 tabs daily for 4 days, 1 tab daily for 4 days, 1/2 tab daily for 4 days PREDNISONE 38358567286 No Longer Active Simon Castillo MD Active AMOXICILLIN 500 MG CAPS 2 po BID x 10 days AMOXICILLIN 77169671750 No Longer Active Simon Castillo MD Active METFORMIN HCL 1000 MG TABS 1 by mounth twice a day METFORMIN HCL 23734267503 No Longer Active Simon Castillo MD Active LUTEIN-ZEAXANTHIN 6-1 MG TABS Take 2 by mouth daily LUTEIN-ZEAXANTHIN 19794043784 Active Simon Castillo MD Active IBUPROFEN 800 MG TABS Take 1 tab every 6 hrs prn IBUPROFEN 70656267923 No Longer Active Simon Castillo MD Active GLYBURIDE 2.5 MG TABS Take one by mouth daily GLYBURIDE 34694727416 No Longer Active Simon Castillo MD Active LANCETS MISC 2 qd LANCETS 25032417415 Active Pamela Conde Active ACACIA CONTOUR TEST STRP Use with testing twice daily GLUCOSE BLOOD 66119025968 Active Simon Castillo MD Active ACACIA ASPIRIN 325 MG TABS Take one by mouth daily ASPIRIN 92543331586 Active Pamela Conde Active GLYBURIDE 2.5 MG TABS Take one by mouth daily GLYBURIDE 2.5 MG TABS 493214 GLYBURIDE Inactive PREDNISONE 20 MG TAB 2 tabs daily for 4 days, 1 tab daily for 4 days, 1/2 tab daily for 4 days PREDNISONE 20 MG TAB 427993 PREDNISONE Inactive SYMBICORT 80-4.5 MCG/ACT AERO 2 puffs twice a day SYMBICORT 80-4.5 MCG/ACT AERO BUDESONIDE-FORMOTEROL FUMARATE Inactive FLONASE 50 MCG/ACT SUSP 2 puffs in each nostril daily FLONASE 50 MCG/ACT SUSP FLUTICASONE PROPIONATE Inactive ATENOLOL 50 MG TABS Take one by mouth daily ATENOLOL 50 MG TABS 186952 ATENOLOL Inactive CETIRIZINE HCL 10 MG TABS 1 po qd as needed for allergies CETIRIZINE HCL 10 MG TABS 7674883 CETIRIZINE HCL Inactive LEVAQUIN 750 MG TABS 1 po qod x 5 doses LEVAQUIN 750 MG TABS 711076 LEVOFLOXACIN Inactive GLYBURIDE 5 MG TAB Take one by mouth daily GLYBURIDE 5 MG TAB 661344 GLYBURIDE Inactive PREDNISONE 5 MG TAB Take one po qod PREDNISONE 5 MG TAB 150001 PREDNISONE Inactive PREDNISONE 20 MG TAB 2 tabs daily for 5 days, then 1 daily for 5 days PREDNISONE 20 MG TAB 775662 PREDNISONE Inactive FLONASE 50 MCG/ACT SUSP 2 puffs in each nostril daily FLONASE 50 MCG/ACT SUSP FLUTICASONE PROPIONATE Inactive SYMBICORT 160-4.5 MCG/ACT AERO 2 puff BID SYMBICORT 160-4.5 MCG/ACT AERO BUDESONIDE-FORMOTEROL FUMARATE Inactive PREDNISONE 5 MG TABS 1 po qod PREDNISONE 5 MG TABS 048704 PREDNISONE Inactive PREDNISONE 20 MG TAB 1 tablet daily for airway inflammation 02/25 PREDNISONE 20 MG TAB 852226 PREDNISONE Inactive SULFASALAZINE 500 MG ORAL TBEC 2 tabs BID SULFASALAZINE 500 MG ORAL TBEC 160727 SULFASALAZINE Inactive LASIX 20 MG TAB 1 tablet by mouth daily x 2 days LASIX 20 MG TAB 614637 FUROSEMIDE Inactive AMOXICILLIN 500 MG CAPS 2 po BID x 10 days AMOXICILLIN 500 MG CAPS 768783 AMOXICILLIN Inactive GLYBURIDE 5 MG TAB Take one by mouth daily GLYBURIDE 5 MG TAB 640382 GLYBURIDE Inactive AZITHROMYCIN 250 MG TABS 2 po qd x 1 day, then 1 po qd x 4 days AZITHROMYCIN 250 MG TABS 9631827 AZITHROMYCIN Inactive PREDNISONE 20 MG TAB 2 tabs daily for 3 days, 1 tab daily for 3 days, 1/2 tab daily for 2 days PREDNISONE 20 MG TAB 805888 PREDNISONE Inactive PREDNISONE 20 MG TAB 2 tabs daily for 5 days, then 1 daily for 5 days, then 0.5 for 4 days PREDNISONE 20 MG TAB 907582 PREDNISONE Inactive AZITHROMYCIN 250 MG TABS 2 po qd x 1 day, then 1 po qd x 4 days AZITHROMYCIN 250 MG TABS 9422486 AZITHROMYCIN Inactive PREDNISONE 20 MG TAB 2 tabs daily for 3 days, 1 tab daily for 3 days, 1/2 tab daily for 2 days PREDNISONE 20 MG TAB 355242 PREDNISONE Inactive TRIAMCINOLONE ACETONIDE 0.1 % OINT Apply to affected areas TID for up to 2 weeks TRIAMCINOLONE ACETONIDE 0.1 % OINT 7449772 TRIAMCINOLONE ACETONIDE Inactive Immunizations Vaccine Administration Date [...] Panel - Chemistry sodium, serum 137 mmol/L 065-432 0954/06/06 carbon dioxide, venous blood 24.9 mmol/L 21.0-32.0 [...] Panel - Chemistry sodium, serum 139 mmol/L 401-845 5092/03/17 carbon dioxide, venous blood 29.0 mmol/L 21.0-32.0 [...] 8.5 % 4.3-6.0 sodium, serum 137 mmol/L 270-688 6175/02/12 potassium, serum 5.1 mmol/L 3.5-5.2 chloride, serum 103 mmol/L 98-107 carbon dioxide, venous blood 24.4 mmol/L 21.0-32.0 blood glucose 261 mg/dL 65-110 calcium, serum 9.0 mg/dL 8.5-10.1 urea nitrogen, blood 44 mg/dL 7-18 creatinine, serum 2.37 mg/dL 0.55-1.30 Lab Report: Lipid Panel, HGBA1C, Comp. Metabolic Panel - Chemistry cholesterol, serum 126 mg/dL 502-515 8962/02/07 triglyceride, serum, fasting 83 mg/dL 30-200 HDL cholesterol, serum 70 mg/dL 32-96 LDL cholesterol, serum 39 mg/dL 0-130 hemoglobin A1C, blood, as % of total hemoglobin 8.3 % 4.3-6.0 sodium, serum 141 mmol/L 062-879 1934/02/07 carbon dioxide, venous blood 26.0 mmol/L 21.0-32.0 [...] 2.6-7.2 Encounters Code Encounter Date Provider Facility CPT-39639 Level 3 Est. Patient 09:18:25 CDT Simon Castillo MD [facility] CPT-35005 Level 4 Est. Patient 11:51:23 CDT Simon Castillo MD [facility] CPT-75370 Level 4 Est. Patient 14:32:04 CDT Neto Oshea DO [facility] CPT-77807 Level 3 Est. Patient 08:41:43 CDT Giles Tatum [facility] CPT-03115 Level 3 Est. Patient 08:40:53 CDT Giles Salcidol [facility] CPT-68080 Level 3 Est. Patient 08:36:52 CDT Giles Tatum [facility] CPT-44358 Level 3 Est. Patient 09:08:44 CDT Giles Tatum [facility] CPT-92677 Level 4 Est. 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 Patient 09:02:14 CDT Simon Castillo MD [facility] CPT-25741 Level 4 Est. Patient 08:47:25 CDT Simon Castillo MD [facility] CPT-76159 Level 4 Est. Patient 10:17:25 CDT Simon Castillo MD [facility] CPT-99648 Level 4 Est. 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 Patient 11:48:19 CDT Simon Castillo MD [facility] CPT-58068 Level 4 Est. Patient 08:59:29 CDT Simon Castillo MD [facility] CPT-76653 Level 4 Est. 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 Patient 11:50:30 CDT Simon Castillo MD [facility] CPT-03881 Level 4 Est. Patient 09:54:46 CDT Simon Castillo MD [facility] CPT-37706 Level 3 Est. Patient 11:10:14 CDT Simon Castillo MD [facility] CPT-49327 Level 4 Est. Patient 09:44:02 CDT Simon Castillo MD [facility] CPT-53758 Level 3 Est. Patient 09:27:48 CDT Simon Castillo MD [facility] CPT-37115 Level 3 Est. 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 CPT-46755 Fluzone High Dose 17:20:42 CDT CPT-78725 Prevnar 13 17:20:42 CDT CPT-64520 Administration 2+ single or combination vaccines inc oral 17:20:42 CDT CPT-50482 Administration single or combination vaccine inc oral 17 :20:42 CDT CPT-36444 Hand comp min 3V 09:24:38 CDT CPT-46705 Venipuncture Draw Fee 08:07:29 WAREHOUSE SUPERVISOR 3RD 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 CPT-78849 Venipuncture Draw Fee 09:02:51 WAREHOUSE SUPERVISOR 3RD SHIFT CPT-90265 Venipuncture Draw Fee 12:45:08 WAREHOUSE SUPERVISOR 3RD SHIFT CPT-39647 Venipuncture Draw Fee 09:25:31 CDT CPT-G0008 Administration of Influenza Virus Vaccine 14:41:29 CDT CPT-69712 Fluzone High-Dose Intramuscular Suspension 14:41:29 CDT CPT-Cryo Cryotherapy 11:48:20 CDT CPT-48325 EKG Trac and Interp 09:21:58 CDT CPT-37989 Chest 2V Frontal and Lat 09:21:58 CDT CPT-Cryo Cryotherapy 10:54:51 WAREHOUSE SUPERVISOR 3RD SHIFT CPT-73623 Administration 2+ single or combination vaccines inc oral 10:42:19 CDT CPT-76120 Administration single or combination vaccine inc oral 10 :42:19 CDT CPT-20999 Pneumovax 10:42:19 CDT CPT-91978 Influenza High Dose age 65+ 10:42:19 CDT CPT-41611 Administration single or combination vaccine inc oral 13 :18:54 CDT CPT-72604 Influenza High Dose age 65+ 13:18:54 CDT CPT-59392 Venipuncture Draw Fee 11:53:16 CDT CPT-02797 LS spine comp w obliq 11:03:13 CDT CPT-Cryo Cryotherapy 08:27:16 WAREHOUSE SUPERVISOR 3RD SHIFT CPT-65776 Administration single or combination vaccine inc oral 10 :56:34 CDT CPT-35213 Influenza High Dose age 65+ 10:56:34 CDT
--- OUTSIDE RECORDS SUMMARY | 2018-03-31 17:47 | XMS REPORT | Clinical Summary ---
Author Author Admin, E Organization [employer] Address Unknown Phone Unavailable Allergies, Adverse Reactions, [...] Castillo MD Rheumatoid arthritis Steroid use, long line teamster V58.65 Resolved Simon Castillo MD Long-term (current) [...] Simon Castillo MD 2012 SINUSITIS, ACUTE ICD-461.9 Inactive Simon Castillo MD [...] Simon Castillo MD 2013 Tinea pedis ICD-110.4 Inactive Simon Castillo MD [...] Dyspnea ICD-786.09 Inactive Simon Castillo MD 2016 Pneumonia, right lower lobe ICD-486 Inactive Simon Castillo MD Sinusitis, acute ICD-461.9 Inactive Simon Castillo MD Other injury of unspecified body region, initial encounter ICD-879.8 Inactive Simon Castillo MD Lesion of skin of face ICD-709.9 Inactive Simon Castillo MD Syncope and collapse ICD-780.2 Inactive Simon Castillo MD abrasion, face, infected ICD-910.1 Inactive Simon Castillo MD Medication List Medication Instructions Start Date Stop Date Generic Name NDC Status Provider Patient Instruction FUROSEMIDE 20 MG ORAL TABLET 1 po qd FUROSEMIDE 37911944719 Active Simon Castillo MD Active BACTRIM DS 800-160 MG ORAL TABLET 1 po BID x 7 days SULFAMETHOXAZOLE-TRIMETHOPRIM 90489257469 Active Simon Castillo MD Active AZITHROMYCIN 250 MG ORAL TABLET 2 po qd x 1, then 1 po qd x 4 AZITHROMYCIN 16781667339 No Longer Active Simon Castillo MD Active PROMETHAZINE-CODEINE 6.25-10 MG/5ML ORAL SYRUP 5ml po qHS PRN Cough PROMETHAZINE-CODEINE 84149523214 No Longer Active Simon Castillo MD Active SINGULAIR 10 MG ORAL TABLET 1 po qd PRN Asthma/Allergies MONTELUKAST SODIUM 42242940517 Active Simon Castillo MD Active PREDNISONE 20 MG ORAL TABLET 2 po qd x 5 days PREDNISONE 30728262848 No Longer Active Simon Castillo MD Active VIAGRA 100 MG ORAL TABLET 0.5 to 1 po qd PRN Erectile dysfunction SILDENAFIL CITRATE 82747277639 Active Simon Castillo MD Active LUTEIN-ZEAXANTHIN 6-1 MG ORAL TABLET 2 po qd LUTEIN- ZEAXANTHIN 43488710374 Active Simon Castillo MD Active BILBERRY CAPSULE 1 po qd BILBERRY (VACCINIUM MYRTILLUS) CAPS 44142828410 Active Simon Castillo MD Active TRAMADOL HCL 50 MG ORAL TABLET 1-2 tablets every 6 hours as needed for pain TRAMADOL HCL 95451107021 No Longer Active Simon Castillo MD Active HYDROCODONE-ACETAMINOPHEN 5-325 MG ORAL TABLET 1 tab by mouth 8 hours as needed for pain HYDROCODONE-ACETAMINOPHEN 90723213338 No Longer Active Simon Castillo MD Active BUMETANIDE 0.5 MG ORAL TABLET 1 po qd BUMETANIDE 52401110350 Active Simon Castillo MD Active AUGMENTIN 875-125 MG ORAL TABLET 1 po BID x 10 days AMOXICILLIN-POT CLAVULANATE 85907041235 No Longer Active Simon Castillo MD Active PIOGLITAZONE HCL 30 MG ORAL TABLET 1 po qd PIOGLITAZONE HCL 58538620497 Active Simon Castillo MD Active GLIMEPIRIDE 4 MG ORAL TABLET 1 po BID GLIMEPIRIDE 28532250526 Active Simon Castillo MD Active ASPIRIN EC 81 MG ORAL TABLET DELAYED RELEASE 1 po qd ASPIRIN 99266414448 Active Simon Castillo MD Active CLOTRIMAZOLE 1 % EXTERNAL CREAM Apply to affected area of feet twice daily PRN Rash CLOTRIMAZOLE 95292815144 No Longer Active Simon Castillo MD Active PREDNISONE 5 MG ORAL TABLET 1 po BID PREDNISONE 79031878153 Active Dolly MCDERMOTT Active FISH OIL 1000 MG ORAL CAPSULE DELAYED RELEASE 1 po BID OMEGA- 3 FATTY ACIDS 22250136658 Active Simon Castillo MD Active LISINOPRIL 10 MG ORAL TABLET 1 p qd LISINOPRIL 04477674475 Active Simon Castillo MD Active CLARITIN 10 MG ORAL TABLET 1 tablet by mouth daily as needed for allergies LORATADINE 54016942499 No Longer Active Simon Castillo MD Active TRIAMCINOLONE ACETONIDE 0.1 % EXTERNAL OINTMENT Apply to affected areas TID for up to 2 weeks TRIAMCINOLONE ACETONIDE 52572712092 No Longer Active Simon Castillo MD Active LASIX 20 MG ORAL TABLET 1 tablet by mouth daily x 2 days FUROSEMIDE 73334218559 No Longer Active Simon Castillo MD Active SULFASALAZINE 500 MG ORAL TABLET DELAYED RELEASE 2 tabs BID 02/26 SULFASALAZINE 91539767220 No Longer Active Neto Oshea DO Active PREDNISONE 20 MG ORAL TABLET 2 tabs daily for 3 days, 1 tab daily for 3 days, 1/2 tab daily for 2 days PREDNISONE 69146762937 No Longer Active Jillina Fratico HEMPHILL Active PREDNISONE 20 MG ORAL TABLET 1 tablet daily for airway inflammation PREDNISONE 47050839331 No Longer Active Jillina Frazell [employer] S[employer] SPECIALIST Active AZITHROMYCIN 250 MG ORAL TABLET 2 po qd x 1 day, then 1 po qd x 4 days 01/28 AZITHROMYCIN 08029273717 No Longer Active Jillina Fraamayal [employer] S[employer] SPECIALIST Active TRAMADOL HCL 50 MG ORAL TABLET 1 po q6hr PRN Pain TRAMADOL HCL 18954876179 No Longer Active Simon Castillo MD Active PREDNISONE 5 MG ORAL TABLET 1 po qod PREDNISONE 66501000214 No Longer Active Simon Castillo MD Active SYMBICORT 160-4.5 MCG/ACT INHALATION AEROSOL 2 puff BID BUDESONIDE-FORMOTEROL FUMARATE 55240196031 No Longer Active Simon Castillo MD Active FLONASE 50 MCG/ACT NASAL SUSPENSION 2 puffs in each nostril daily FLUTICASONE PROPIONATE 51023205641 No Longer Active Simon Castillo MD Active PREDNISONE 20 MG ORAL TABLET 2 tabs daily for 5 days, then 1 daily for 5 days PREDNISONE 54685455191 No Longer Active Simon Castillo MD Active PREDNISONE 20 MG ORAL TABLET 2 tabs daily for 5 days, then 1 daily for 5 days , then 0.5 for 4 days PREDNISONE 93041948682 No Longer Active Simon Castillo MD Active PREDNISONE 20 MG ORAL TABLET 2 tabs daily for 3 days, 1 tab daily for 3 days, 1/2 tab daily for 2 days PREDNISONE 37510089959 No Longer Active Simon Castillo MD Active AZITHROMYCIN 250 MG ORAL TABLET 2 po qd x 1 day, then 1 po qd x 4 days 03/16 AZITHROMYCIN 27086398478 No Longer Active Simon Castillo MD Active CARVEDILOL 6.25 MG ORAL TABLET 1 po BID CARVEDILOL 85428472698 Active Simon Castillo MD Active LISINOPRIL-HYDROCHLOROTHIAZIDE 20-12.5 MG ORAL TABLET 1/2 tab by mouth daily LISINOPRIL-HYDROCHLOROTHIAZIDE 33441772167 No Longer Active Simon Castillo MD Active PREDNISONE 5 MG ORAL TABLET Take one po qod PREDNISONE 23176501281 No Longer Active Simon Castillo MD Active GLYBURIDE 5 MG ORAL TABLET Take one by mouth daily GLYBURIDE 10072396764 No Longer Active Simon Castillo MD Active LEVAQUIN 750 MG ORAL TABLET 1 po qod x 5 doses LEVOFLOXACIN 36335631280 No Longer Active Simon Castillo MD Active CETIRIZINE HCL 10 MG ORAL TABLET 1 po qd as needed for allergies CETIRIZINE HCL 96906218803 No Longer Active Simon Castillo MD Active ATENOLOL 50 MG ORAL TABLET Take one by mouth daily ATENOLOL 41544415561 No Longer Active Simon Castillo MD Active FLONASE 50 MCG/ACT NASAL SUSPENSION 2 puffs in each nostril daily FLUTICASONE PROPIONATE 39293830866 No Longer Active Simon Castillo MD Active GLYBURIDE 5 MG ORAL TABLET Take one by mouth daily GLYBURIDE 55984325505 No Longer Active Simon Castillo MD Active SYMBICORT 80-4.5 MCG/ACT INHALATION AEROSOL 2 puffs twice a day BUDESONIDE-FORMOTEROL FUMARATE 73536009520 No Longer Active Simon Castillo MD Active PREDNISONE 20 MG ORAL TABLET 2 tabs daily for 4 days, 1 tab daily for 4 days, 1/2 tab daily for 4 days PREDNISONE 24396203245 No Longer Active Simon Castillo MD Active AMOXICILLIN 500 MG ORAL CAPSULE 2 po BID x 10 days AMOXICILLIN 90065362555 No Longer Active Simon Castillo MD Active METFORMIN HCL 1000 MG ORAL TABLET 1 by mounth twice a day METFORMIN HCL 07480067957 No Longer Active Simon Castillo MD Active IBUPROFEN 800 MG ORAL TABLET Take 1 tab every 6 hrs prn IBUPROFEN 71862920231 No Longer Active Simon Castillo MD Active GLYBURIDE 2.5 MG ORAL TABLET Take one by mouth daily GLYBURIDE 13133830268 No Longer Active Simon Castillo MD Active LANCETS 2 qd LANCETS 67282824146 Active Pamela Conde Active ACACIA CONTOUR TEST IN VITRO STRIP Use with testing twice daily GLUCOSE BLOOD 95871795604 Active Simon Castillo MD Active GLYBURIDE 2.5 MG ORAL TABLET Take one by mouth daily GLYBURIDE 2.5 MG ORAL TABLET 255301 GLYBURIDE Inactive PREDNISONE 20 MG ORAL TABLET 2 tabs daily for 4 days, 1 tab daily for 4 days, 1/2 tab daily for 4 days PREDNISONE 20 MG ORAL TABLET 279213 PREDNISONE Inactive SYMBICORT 80-4.5 MCG/ACT INHALATION AEROSOL 2 puffs twice a day SYMBICORT 80-4.5 MCG/ACT INHALATION AEROSOL BUDESONIDE- FORMOTEROL FUMARATE Inactive FLONASE 50 MCG/ACT NASAL SUSPENSION 2 puffs in each nostril daily FLONASE 50 MCG/ACT NASAL SUSPENSION 1819551 FLUTICASONE PROPIONATE Inactive ATENOLOL 50 MG ORAL TABLET Take one by mouth daily ATENOLOL 50 MG ORAL TABLET 704806 ATENOLOL Inactive CETIRIZINE HCL 10 MG ORAL TABLET 1 po qd as needed for allergies CETIRIZINE HCL 10 MG ORAL TABLET 5636516 CETIRIZINE HCL Inactive LEVAQUIN 750 MG ORAL TABLET 1 po qod x 5 doses LEVAQUIN 750 MG ORAL TABLET 965060 LEVOFLOXACIN Inactive GLYBURIDE 5 MG ORAL TABLET Take one by mouth daily GLYBURIDE 5 MG ORAL TABLET 414551 GLYBURIDE Inactive PREDNISONE 5 MG ORAL TABLET Take one po qod PREDNISONE 5 MG ORAL TABLET 023406 PREDNISONE Inactive PREDNISONE 20 MG ORAL TABLET 2 tabs daily for 5 days, then 1 daily for 5 days PREDNISONE 20 MG ORAL TABLET 009107 PREDNISONE Inactive FLONASE 50 MCG/ACT NASAL SUSPENSION 2 puffs in each nostril daily FLONASE 50 MCG/ACT NASAL SUSPENSION 0792517 FLUTICASONE PROPIONATE Inactive SYMBICORT 160-4.5 MCG/ACT INHALATION AEROSOL 2 puff BID SYMBICORT 160-4.5 MCG/ACT INHALATION AEROSOL BUDESONIDE-FORMOTEROL FUMARATE Inactive PREDNISONE 5 MG ORAL TABLET 1 po qod PREDNISONE 5 MG ORAL TABLET 360392 PREDNISONE Inactive PREDNISONE 20 MG ORAL TABLET 1 tablet daily for airway inflammation PREDNISONE 20 MG ORAL TABLET 042775 PREDNISONE Inactive SULFASALAZINE 500 MG ORAL TABLET DELAYED RELEASE 2 tabs BID 02/26 SULFASALAZINE 500 MG ORAL TABLET DELAYED RELEASE 327851 SULFASALAZINE Inactive LASIX 20 MG ORAL TABLET 1 tablet by mouth daily x 2 days LASIX 20 MG ORAL TABLET 093821 FUROSEMIDE Inactive CLARITIN 10 MG ORAL TABLET 1 tablet by mouth daily as needed for allergies CLARITIN 10 MG ORAL TABLET 155436 LORATADINE Inactive CLOTRIMAZOLE 1 % EXTERNAL CREAM Apply to affected area of feet twice daily PRN Rash CLOTRIMAZOLE 1 % EXTERNAL CREAM 009667 CLOTRIMAZOLE Inactive HYDROCODONE-ACETAMINOPHEN 5-325 MG ORAL TABLET 1 tab by mouth 8 hours as needed for pain HYDROCODONE-ACETAMINOPHEN 5-325 MG ORAL TABLET 530566 HYDROCODONE-ACETAMINOPHEN Inactive TRAMADOL HCL 50 MG ORAL TABLET 1-2 tablets every 6 hours as needed for pain TRAMADOL HCL 50 MG ORAL TABLET 550692 TRAMADOL HCL Inactive PROMETHAZINE-CODEINE 6.25-10 MG/5ML ORAL SYRUP 5ml po qHS PRN Cough PROMETHAZINE-CODEINE 6.25-10 MG/5ML ORAL SYRUP 475975 PROMETHAZINE-CODEINE Inactive AZITHROMYCIN 250 MG ORAL TABLET 2 po qd x 1, then 1 po qd x 4 AZITHROMYCIN 250 MG ORAL TABLET 144862 AZITHROMYCIN Inactive AMOXICILLIN 500 MG ORAL CAPSULE 2 po BID x 10 days AMOXICILLIN 500 MG ORAL CAPSULE 877580 AMOXICILLIN Inactive GLYBURIDE 5 MG ORAL TABLET Take one by mouth daily GLYBURIDE 5 MG ORAL TABLET 612721 GLYBURIDE Inactive AZITHROMYCIN 250 MG ORAL TABLET 2 po qd x 1 day, then 1 po qd x 4 days 03/16 AZITHROMYCIN 250 MG ORAL TABLET 843621 AZITHROMYCIN Inactive PREDNISONE 20 MG ORAL TABLET 2 tabs daily for 3 days, 1 tab daily for 3 days, 1/2 tab daily for 2 days PREDNISONE 20 MG ORAL TABLET 025471 PREDNISONE Inactive PREDNISONE 20 MG ORAL TABLET 2 tabs daily for 5 days, then 1 daily for 5 days , then 0.5 for 4 days PREDNISONE 20 MG ORAL TABLET 997412 PREDNISONE Inactive AZITHROMYCIN 250 MG ORAL TABLET 2 po qd x 1 day, then 1 po qd x 4 days 01/28 AZITHROMYCIN 250 MG ORAL TABLET 865439 AZITHROMYCIN Inactive PREDNISONE 20 MG ORAL TABLET 2 tabs daily for 3 days, 1 tab daily for 3 days, 1/2 tab daily for 2 days PREDNISONE 20 MG ORAL TABLET 754649 PREDNISONE Inactive TRIAMCINOLONE ACETONIDE 0.1 % EXTERNAL OINTMENT Apply to affected areas TID for up to 2 weeks TRIAMCINOLONE ACETONIDE 0.1 % EXTERNAL OINTMENT 2218890 TRIAMCINOLONE ACETONIDE Inactive AUGMENTIN 875-125 MG ORAL TABLET 1 po BID x 10 days AUGMENTIN 875-125 MG ORAL TABLET 813899 AMOXICILLIN-POT CLAVULANATE Inactive PREDNISONE 20 MG ORAL TABLET 2 po qd x 5 days PREDNISONE 20 MG ORAL TABLET 162294 PREDNISONE Inactive Immunizations Vaccine Administration Date Value [...] Peptide - Chemistry sodium, serum 142 mmol/L 412-259 0247/07/18 potassium, serum 5.0 mmol/L 3.5-5.2 chloride, serum [...] Panel - Chemistry sodium, serum 138 mmol/L 935-779 3856/06/04 carbon dioxide, venous blood 23.4 mmol/L 21.0-32.0 [...] Rate - Chemistry sodium, serum 142 mmol/L 790-978 0562/02/27 carbon dioxide, venous blood 26.2 mmol/L 21.0-32.0 [...] Panel - Chemistry sodium, serum 140 mmol/L 111-422 1266/07/13 carbon dioxide, venous blood 23.7 mmol/L 21.0-32.0 [...] dipstick Negative Negative sodium, serum 142 mmol/L 375-428 7622/01/08 carbon dioxide, venous blood 23.9 mmol/L 21.0-32.0 [...] Negative;Positive Encounters Code Encounter Date Provider Facility CPT-07532 Level 4 Est. Patient 11:32:07 CDT Simon Castillo [facility] CPT-06631 Level 3 Est. Patient 11:36:15 CDT Simon Castillo [facility] CPT-19533 Level 4 Est. Patient 14:06:23 MANAGER SKILLED [facility] CPT-53067 Level 3 Est. Patient 12:04:38 MANAGER SKILLED Giles Tatum [facility] CPT-48768 Level 3 Est. Patient 11:57:09 MANAGER SKILLED Giles Tatum [facility] CPT-88820 Level 3 Est. Patient 11:48:57 MANAGER SKILLED Giles Tatum [facility] CPT-89570 Level 4 Est. Patient 09:54:36 CDT [facility] CPT-08185 Level 4 Est. Patient 08:48:38 CDT Simon [facility] CPT-74878 Level 4 Est. Patient 09:54:08 CDT [facility] CPT-19986 Level 4 Est. Patient 16:11:23 CDT Simon [facility] CPT-65257 Level 4 Est. Patient 09:29:28 MANAGER SKILLED Simon Cast[facility] CPT-13745 Level 3 Est. Patient 09:18:25 CDT Simon [facility] CPT-39491 Level 4 Est. Patient 11:51:23 CDT [facility] CPT-13436 Level 4 Est. Patient 14:32:04 CDT Neto Oshea DO [facility] CPT-37867 Level 3 Est. Patient 08:41:43 CDT Jillina Nashzell [facility] CPT-52193 Level 3 Est. Patient 08:40:53 CDT Jillina Frazell [facility] CPT-93270 Level 3 Est. Patient 08:36:52 CDT Jillina Frazell [facility] CPT-77134 Level 3 Est. Patient 09:08:44 CDT Jillina Nashzell [facility] CPT-35869 Level 4 Est. Patient 09:17:32 MANAGER SKILLED Simon [facility] CPT-78841 Level 3 Est. Patient 11:22:22 MANAGER SKILLED Simon Castillo MD [facility] CPT-86625 Level 3 Est. Patient 09:02:14 CDT Simon Castillo MD [facility] CPT-72964 Level 4 Est. Patient 08:47:25 CDT [facility] CPT-77737 Level 4 Est. Patient 10:17:25 CDT Simon Castillo MD [facility] CPT-92880 Level 4 Est. Patient 10:10:09 MANAGER SKILLED Simon Castillo MD [facility] CPT-77643 Level 4 Est. Patient 11:48:19 CDT Simon Castillo MD [facility] CPT-74067 Level 4 Est. Patient 08:59:29 CDT [facility] CPT-42255 Level 4 Est. Patient 10:52:51 MANAGER SKILLED Simon Castillo MD [facility] CPT-90373 Level 4 Est. Patient 11:50:30 CDT Simon Castillo MD [facility] CPT-23040 Level 4 Est. Patient 09:54:46 CDT Simon Castillo MD [facility] CPT-78247 Level 3 Est. Patient 11:10:14 CDT Simon Castillo MD [facility] CPT-65914 Level 4 Est. Patient 09:44:02 CDT Simon Castillo MD [facility] CPT-66838 Level 3 Est. Patient 09:27:48 CDT Simon Castillo MD [facility] CPT-66234 Level 3 Est. Patient 09:58:06 MANAGER SKILLED Simon Castillo MD [facility] CPT-33857 Level 3 Est. Patient 09:51:35 CDT Simon Castillo MD [facility] Procedures Code Procedure Name Date Entry Date Standard Description CPT-15932 EKG Trac and Interp - XRAY USE ONLY 11:41:45 CDT 02/23 CPT-78766 Chest, 2 views 11:41:45 CDT CPT-03548 EKG Trac and Interp - XRAY USE ONLY 12:19:18 MANAGER SKILLED 09/29 CPT-03817 Chest, 2 views 12:19:17 MANAGER SKILLED CPT-[facility] Cryotherapy 09:54:37 CDT CPT-29552 First Vx - Ix admin for Medicare patients 09:13:10 CDT CPT-22935 Fluzone High-Dose Intramuscular Suspension 09:13:10 CDT CPT-G0439 Subsequent Annual Wellness Exam 09:41:17 CDT CPT-94167 Lipid - LAB USE ONLY 17:15:33 CDT CPT-24284 HGBA1C - LAB USE ONLY 17:15:33 CDT CPT-96258 CMP - LAB USE ONLY 17:15:33 CDT CPT-58868 Venipuncture Draw Fee 17:15:33 CDT CPT-[facility] Mgmt-High 11:01:28 MANAGER SKILLED CPT-64648 First Vx - Ix admin for Medicare patients 17:33:39 CDT CPT-91171 Fluzone High-Dose Intramuscular Suspension 17:33:39 CDT CPT-G0438 Initial Annual Wellness Exam 08:57:30 CDT CPT-33151 Chest 2V Frontal and Lat - XRAY USE ONLY 09:00:14 CDT CPT-33551 Venipuncture Draw Fee 13:33:02 CDT CPT-09827 Bone Density 09:37:49 MANAGER SKILLED CPT-80927 Fluzone High Dose 17:20:42 CDT CPT-25716 Prevnar 13 17:20:42 CDT CPT-63788 Administration 2+ single or combination vaccines inc oral 17:20:42 CDT CPT-53785 Administration single or combination vaccine inc oral 17 :20:42 CDT CPT-72592 Hand comp min 3V 09:24:38 CDT CPT-72971 Venipuncture Draw Fee 08:07:29 MANAGER SKILLED CPT-83088 Venipuncture Draw Fee 09:02:51 MANAGER SKILLED CPT-39299 Venipuncture Draw Fee 12:45:08 MANAGER SKILLED CPT-72030 Venipuncture Draw Fee 09:25:31 CDT CPT-G0008 Administration of Influenza Virus Vaccine 14:41:29 CDT CPT-42483 Fluzone High-Dose Intramuscular Suspension 14:41:29 CDT CPT-C[facility] Cryotherapy 11:48:20 CDT CPT-23748 EKG Trac and Interp 09:21:58 CDT CPT-03001 Chest 2V Frontal and Lat 09:21:58 CDT CPT-Cryo Cryotherapy 10:54:51 MANAGER SKILLED CPT-71796 Administration 2+ single or combination vaccines inc oral 10:42:19 CDT CPT-03624 Administration single or combination vaccine inc oral 10 :42:19 CDT CPT-01396 Pneumovax 10:42:19 CDT CPT-15817 Influenza High Dose age 65+ 10:42:19 CDT CPT-57888 Administration single or combination vaccine inc oral 13 :18:54 CDT CPT-33665 Influenza High Dose age 65+ 13:18:54 CDT CPT-32196 Venipuncture Draw Fee 11:53:16 CDT CPT-04502 LS spine comp w obliq 11:03:13 CDT CPT-Cryo Cryotherapy 08:27:16 MANAGER SKILLED CPT-97494 Administration single or combination vaccine inc oral 10 :56:34 CDT CPT-56958 Influenza High Dose age 65+ 10:56:34 CDT
--- OUTSIDE RECORDS SUMMARY | 2018-03-31 17:49 | XMS REPORT | Clinical Summary ---
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[employer]ER Edema FH DIABETES ICD-V18.0 Inactive Simon Castillo [...] ICD-729.5 Inactive Simon Castillo MD Steroid use, mcfp ICD-V58.65 Inactive Simon Castillo MD Hand pain, bilateral ICD-729.5 Inactive Simon Castillo MD Medication List Medication Instructions Start Date Stop Date Generic Name NDC Status Provider Patient Instruction LASIX 20 MG TAB 1 tablet by mouth daily x 2 days FUROSEMIDE 13328054276 No Longer Active Simon Castillo MD Active SULFASALAZINE 500 MG ORAL TBEC 2 tabs BID SULFASALAZINE 24366909886 No Longer Active Neto Oshea DO Active PREDNISONE 20 MG TAB 2 tabs daily for 3 days, 1 tab daily for 3 days, 1/2 tab daily for 2 days PREDNISONE 92114210806 No Longer Active 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 GLIMEPIRIDE 42935986118 Active Simon Castillo MD Active HYDROCODONE-ACETAMINOPHEN 5-325 MG TABS 1 tab by mouth 8 hours as needed for pain HYDROCODONE-ACETAMINOPHEN 90710933782 Active Simon Castillo MD Active TRAMADOL HCL 50 MG TABS 1 po q6hr PRN Pain TRAMADOL HCL 93724077511 No Longer Active Simon Castillo MD Active PREDNISONE 5 MG TAB 1-2 tabs daily for rheumatoid arthritis PREDNISONE 45680298717 Active Simon Castillo MD Active PREDNISONE 5 MG TABS 1 po qod PREDNISONE 69192199211 No Longer Active Simon Castillo MD Active SYMBICORT 160-4.5 MCG/ACT AERO 2 puff BID BUDESONIDE- FORMOTEROL FUMARATE 70526215417 No Longer Active Simon Castillo MD Active FLONASE 50 MCG/ACT SUSP 2 puffs in each nostril daily FLUTICASONE PROPIONATE 52219288266 No Longer Active Simon Castillo MD Active PREDNISONE 20 MG TAB 2 tabs daily for 5 days, then 1 daily for 5 days PREDNISONE 00222226673 No Longer Active Simon Castillo MD Active PREDNISONE 20 MG TAB 2 tabs daily for 5 days, then 1 daily for 5 days, then 0.5 for 4 days PREDNISONE 22459632352 No Longer Active Simon Castillo MD Active CLOTRIMAZOLE 1 % EXT CREA Apply to affected area of feet twice daily PRN Rash CLOTRIMAZOLE 80400307096 Active Simon Castillo MD Active PREDNISONE 20 MG TAB 2 tabs daily for 3 days, 1 tab daily for 3 days, 1/2 tab daily for 2 days PREDNISONE 14846752871 No Longer Active Simon Castillo MD Active AZITHROMYCIN 250 MG TABS 2 po qd x 1 day, then 1 po qd x 4 days AZITHROMYCIN 20942397913 No Longer Active Simon Castillo MD Active LISINOPRIL 10 MG TABS 1 tablet by mouth daily LISINOPRIL 72273508191 Active Simon Castillo MD Active CARVEDILOL 6.25 MG TABS 1 po BID CARVEDILOL 86708388961 Active Simon Castillo MD Active LISINOPRIL-HYDROCHLOROTHIAZIDE 20-12.5 MG TABS 1/2 tab by mouth daily LISINOPRIL-HYDROCHLOROTHIAZIDE 39991144107 No Longer Active Simon Castillo MD Active TRAMADOL HCL 50 MG TABS 1-2 tablets every 6 hours as needed for pain TRAMADOL HCL 26088530994 Active Giles Tatum APRN Active PREDNISONE 5 MG TAB Take one po qod PREDNISONE 43435928185 No Longer Active Simon Castillo MD Active GLYBURIDE 5 MG TAB Take one by mouth daily GLYBURIDE 13257802588 No Longer Active Simon Castillo MD Active LEVAQUIN 750 MG TABS 1 po qod x 5 doses LEVOFLOXACIN 62066838917 No Longer Active Simon Castillo MD Active CETIRIZINE HCL 10 MG TABS 1 po qd as needed for allergies CETIRIZINE HCL 57127704725 No Longer Active Simon Castillo MD Active FISH OIL 1000 MG CPDR 1 pill by mouth twice daily for cholesterol OMEGA -3 FATTY ACIDS 58118933852 Active Simon Castillo MD Active BILBERRY CAPS 1 tab daily BILBERRY (VACCINIUM MYRTILLUS) CAPS 03766100304 Active Simon Castillo MD Active ATENOLOL 50 MG TABS Take one by mouth daily ATENOLOL 66902425320 No Longer Active Simon Castillo MD Active FLONASE 50 MCG/ACT SUSP 2 puffs in each nostril daily FLUTICASONE PROPIONATE 44169318696 No Longer Active Simon Castillo MD Active GLYBURIDE 5 MG TAB Take one by mouth daily GLYBURIDE 27005688814 No Longer Active Simon Castillo MD Active SYMBICORT 80-4.5 MCG/ACT AERO 2 puffs twice a day BUDESONIDE-FORMOTEROL FUMARATE 24095301301 No Longer Active Simon Castillo MD Active PREDNISONE 20 MG TAB 2 tabs daily for 4 days, 1 tab daily for 4 days, 1/2 tab daily for 4 days PREDNISONE 96974118939 No Longer Active Simon Castillo MD Active AMOXICILLIN 500 MG CAPS 2 po BID x 10 days AMOXICILLIN 26034428610 No Longer Active Simon Castillo MD Active METFORMIN HCL 1000 MG TABS 1 by mounth twice a day METFORMIN HCL 20680628096 No Longer Active Simon Castillo MD Active LUTEIN-ZEAXANTHIN 6-1 MG TABS Take 2 by mouth daily LUTEIN-ZEAXANTHIN 88131068749 Active Simon Castillo MD Active IBUPROFEN 800 MG TABS Take 1 tab every 6 hrs prn IBUPROFEN 70348670048 No Longer Active Simon Castillo MD Active GLYBURIDE 2.5 MG TABS Take one by mouth daily GLYBURIDE 03760867595 No Longer Active Simon Castillo MD Active LANCETS MISC 2 qd LANCETS 43904007183 Active Pamela Conde Active ACACIA CONTOUR TEST STRP Use with testing twice daily GLUCOSE BLOOD 67351770430 Active Simon Castillo MD Active ACACIA ASPIRIN 325 MG TABS Take one by mouth daily ASPIRIN 74685187840 Active Pamela Conde Active GLYBURIDE 2.5 MG TABS Take one by mouth daily GLYBURIDE 2.5 MG TABS 153014 GLYBURIDE Inactive PREDNISONE 20 MG TAB 2 tabs daily for 4 days, 1 tab daily for 4 days, 1/2 tab daily for 4 days PREDNISONE 20 MG TAB 450566 PREDNISONE Inactive SYMBICORT 80-4.5 MCG/ACT AERO 2 puffs twice a day SYMBICORT 80-4.5 MCG/ACT AERO BUDESONIDE-FORMOTEROL FUMARATE Inactive FLONASE 50 MCG/ACT SUSP 2 puffs in each nostril daily FLONASE 50 MCG/ACT SUSP 310400 FLUTICASONE PROPIONATE Inactive ATENOLOL 50 MG TABS Take one by mouth daily ATENOLOL 50 MG TABS 168880 ATENOLOL Inactive CETIRIZINE HCL 10 MG TABS 1 po qd as needed for allergies CETIRIZINE HCL 10 MG TABS 2643196 CETIRIZINE HCL Inactive LEVAQUIN 750 MG TABS 1 po qod x 5 doses LEVAQUIN 750 MG TABS 441920 LEVOFLOXACIN Inactive GLYBURIDE 5 MG TAB Take one by mouth daily GLYBURIDE 5 MG TAB 296973 GLYBURIDE Inactive PREDNISONE 5 MG TAB Take one po qod PREDNISONE 5 MG TAB 464170 PREDNISONE Inactive PREDNISONE 20 MG TAB 2 tabs daily for 5 days, then 1 daily for 5 days PREDNISONE 20 MG TAB 677436 PREDNISONE Inactive FLONASE 50 MCG/ACT SUSP 2 puffs in each nostril daily FLONASE 50 MCG/ACT SUSP 903914 FLUTICASONE PROPIONATE Inactive SYMBICORT 160-4.5 MCG/ACT AERO 2 puff BID SYMBICORT 160-4.5 MCG/ACT AERO BUDESONIDE-FORMOTEROL FUMARATE Inactive PREDNISONE 5 MG TABS 1 po qod PREDNISONE 5 MG TABS 703543 PREDNISONE Inactive PREDNISONE 20 MG TAB 1 tablet daily for airway inflammation 02/25 PREDNISONE 20 MG TAB 648355 PREDNISONE Inactive SULFASALAZINE 500 MG ORAL TBEC 2 tabs BID SULFASALAZINE 500 MG ORAL TBEC 729395 SULFASALAZINE Inactive LASIX 20 MG TAB 1 tablet by mouth daily x 2 days LASIX 20 MG TAB 214053 FUROSEMIDE Inactive AMOXICILLIN 500 MG CAPS 2 po BID x 10 days AMOXICILLIN 500 MG CAPS 658117 AMOXICILLIN Inactive GLYBURIDE 5 MG TAB Take one by mouth daily GLYBURIDE 5 MG TAB 129822 GLYBURIDE Inactive AZITHROMYCIN 250 MG TABS 2 po qd x 1 day, then 1 po qd x 4 days AZITHROMYCIN 250 MG TABS 5233041 AZITHROMYCIN Inactive PREDNISONE 20 MG TAB 2 tabs daily for 3 days, 1 tab daily for 3 days, 1/2 tab daily for 2 days PREDNISONE 20 MG TAB 627795 PREDNISONE Inactive PREDNISONE 20 MG TAB 2 tabs daily for 5 days, then 1 daily for 5 days, then 0.5 for 4 days PREDNISONE 20 MG TAB 475250 PREDNISONE Inactive AZITHROMYCIN 250 MG TABS 2 po qd x 1 day, then 1 po qd x 4 days AZITHROMYCIN 250 MG TABS 9513532 AZITHROMYCIN Inactive PREDNISONE 20 MG TAB 2 tabs daily for 3 days, 1 tab daily for 3 days, 1/2 tab daily for 2 days PREDNISONE 20 MG TAB 023911 PREDNISONE Inactive Immunizations Vaccine Administration Date Value [...] Panel - Chemistry sodium, serum 132 mmol/L 206-138 7337/10/26 carbon dioxide, venous blood 22.8 mmol/L 21.0-32.0 potassium, serum 5.4 mmol/L 3.5-5.2 chloride, serum 98 mmol/L 98-107 blood glucose 424 mg/dL 65-110 urea nitrogen, blood 40 mg/dL 7-18 creatinine, serum 2.26 mg/dL 0.55-1.30 alanine aminotransferase (SGPT), serum 29 U/L -78 aspartate aminotransferase (SGOT), serum 24 U/L 15-37 calcium, serum 8.6 mg/dL 8.5-10.1 bilirubin, serum, total 0.60 mg/dL 0.00-1.00 sodium, serum 137 mmol/L 510-776 8356/06/06 carbon dioxide, venous blood 24.9 mmol/L 21.0-32.0 [...] % 11.6-14.8 platelet count 210 10^3/MM^3 10*3/mm3 031-786 3555/10/26 leukocyte count, blood 10.3 10^3/MM^3 10*3/mm3 4.6-10.2 [...] Panel - Chemistry sodium, serum 139 mmol/L 135-596 2055/03/17 carbon dioxide, venous blood 29.0 mmol/L 21.0-32.0 [...] Rate - Chemistry sodium, serum 136 mmol/L 937-614 9007/09/18 carbon dioxide, venous blood 24.3 mmol/L 21.0-32.0 [...] HGBA1C - Chemistry sodium, serum 139 mmol/L 834-201 3520/07/09 potassium, serum 5.4 mmol/L 3.5-5.2 chloride, serum [...] 8.5 % 4.3-6.0 sodium, serum 137 mmol/L 370-848 3803/02/12 potassium, serum 5.1 mmol/L 3.5-5.2 chloride, serum 103 mmol/L 98-107 carbon dioxide, venous blood 24.4 mmol/L 21.0-32.0 blood glucose 261 mg/dL 65-110 calcium, serum 9.0 mg/dL 8.5-10.1 urea nitrogen, blood 44 mg/dL 7-18 creatinine, serum 2.37 mg/dL 0.55-1.30 Lab Report: Lipid Panel - Chemistry cholesterol, serum 139 mg/dL 528-517 2428/09/10 triglyceride, serum, fasting 176 mg/dL 30-200 HDL cholesterol, serum 45 mg/dL 32-96 LDL cholesterol, serum 59 mg/dL 0-130 Lab Report: MICROALBUMIN - Chemistry albumin/creatinine ratio, urine 30 - 300 mg/g mg/g{creat} 0-29 Lab Report: MICROALBUMIN - Lab microalbumin, urine 30 0-19 Lab Report: Uric Acid - Chemistry uric acid, serum 6.3 mg/dL 2.6-7.2 Encounters Code Encounter Date Provider Facility CPT-10586 Level 4 Est. Patient 11:51:23 CDT Simon Castillo MD [facility] CPT-51760 Level 4 Est. Patient 14:32:04 CDT Neto Oshea DO [facility] CPT-80976 Level 3 Est. Patient 08:41:43 CDT Giles Tatum [facility] CPT-49122 Level 3 Est. Patient 08:40:53 CDT Giles Tatum [facility] CPT-36619 Level 3 Est. Patient 08:36:52 CDT Giles Nashtico [facility] CPT-53891 Level 3 Est. Patient 09:08:44 CDT Giles Nashtico [facility] CPT-31351 Level 4 Est. Patient 09:17:32 VISUAL ARTIST Simon Castillo MD [facility] CPT-36290 Level 3 Est. Patient 11:22:22 VISUAL ARTIST Simon Castillo MD [facility] CPT-03023 Level 3 Est. Patient 09:02:14 CDT Simon Castillo MD [facility] CPT-85731 Level 4 Est. Patient 08:47:25 CDT Simon Castillo MD [facility] CPT-84631 Level 4 Est. Patient 10:17:25 CDT Simon Castillo MD [facility] CPT-06568 Level 4 Est. Patient 10:10:09 VISUAL ARTIST Simon Castillo MD [facility] CPT-08140 Level 4 Est. Patient 11:48:19 CDT Simon Castillo MD [facility] CPT-53027 Level 4 Est. Patient 08:59:29 CDT Simon Castillo MD [facility] CPT-73138 Level 4 Est. Patient 10:52:51 VISUAL ARTIST Simon Castillo MD [facility] CPT-14067 Level 4 Est. Patient 11:50:30 CDT Simon Castillo MD [facility] CPT-18391 Level 4 Est. Patient 09:54:46 CDT Simon Castillo MD [facility] CPT-33661 Level 3 Est. Patient 11:10:14 CDT Simon Castillo MD [facility] CPT-40002 Level 4 Est. Patient 09:44:02 CDT Simon Castillo MD [facility] CPT-53011 Level 3 Est. Patient 09:27:48 CDT Simon Castillo MD [facility] CPT-36878 Level 3 Est. Patient 09:58:06 VISUAL ARTIST Simon Castillo MD [facility] CPT-80089 Level 3 Est. Patient 09:51:35 CDT Simon Castillo MD [facility] Procedures Code Procedure Name Date Entry Date Standard Description CPT-G0438 Initial Annual Wellness Exam 08:57:30 CDT CPT-98080 Chest 2V Frontal and Lat - XRAY USE ONLY 09:00:14 CDT CPT-15613 Venipuncture Draw Fee 13:33:02 CDT CPT-21962 Bone Density 09:37:49 VISUAL ARTIST CPT-40836 Fluzone High Dose 17:20:42 CDT CPT-02418 Prevnar 13 17:20:42 CDT CPT-12806 Administration 2+ single or combination vaccines inc oral 17:20:42 CDT CPT-69810 Administration single or combination vaccine inc oral 17 :20:42 CDT CPT-12523 Hand comp min 3V 09:24:38 CDT CPT-99343 Venipuncture Draw Fee 08:07:29 VISUAL ARTIST CPT-43243 Venipuncture Draw Fee 09:02:51 VISUAL ARTIST CPT-06996 Venipuncture Draw Fee 12:45:08 VISUAL ARTIST CPT-39456 Venipuncture Draw Fee 09:25:31 CDT CPT-G0008 Administration of Influenza Virus Vaccine 14:41:29 CDT CPT-52251 Fluzone High-Dose Intramuscular Suspension 14:41:29 CDT CPT-Cryo Cryotherapy 11:48:20 CDT CPT-28782 EKG Trac and Interp 09:21:58 CDT CPT-75507 Chest 2V Frontal and Lat 09:21:58 CDT CPT-Cryo Cryotherapy 10:54:51 VISUAL ARTIST CPT-74292 Administration 2+ single or combination vaccines inc oral 10:42:19 CDT CPT-26096 Administration single or combination vaccine inc oral 10 :42:19 CDT CPT-80852 Pneumovax 10:42:19 CDT CPT-33835 Influenza High Dose age 65+ 10:42:19 CDT CPT-36386 Administration single or combination vaccine inc oral 13 :18:54 CDT CPT-49818 Influenza High Dose age 65+ 13:18:54 CDT CPT-01273 Venipuncture Draw Fee 11:53:16 CDT CPT-57927 LS spine comp w obliq 11:03:13 CDT CPT-Cryo Cryotherapy 08:27:16 VISUAL ARTIST CPT-31387 Administration single or combination vaccine inc oral 10 :56:34 CDT CPT-05511 Influenza High Dose age 65+ 10:56:34 CDT
--- OUTSIDE RECORDS SUMMARY | 2018-03-31 17:51 | XMS REPORT | Clinical Summary ---
Author Author Admin, E Organization [employer] Address Unknown Phone Unavailable Allergies, Adverse Reactions, [...] Rheumatoid arthritis Steroid use, long term care administrator V58.65 Resolved Simon Castillo MD Long-term (current) [...] Castillo MD 02/27 Bronchitis, acute ICD-466.0 Kerry Castilol MD Tinea pedis ICD-110.4 Kerry Castillo MD Hand pain, bilateral ICD-729.5 Kerry Castillo MD Steroid use, alf ICD-V58.65 Kerry Castillo MD Hand pain, bilateral [...] MG ORAL TABLET 1 po qd FUROSEMIDE 47141048012 Active Simon Castillo MD Active BACTRIM DS 800-160 MG ORAL TABLET 1 po BID x 7 days SULFAMETHOXAZOLE-TRIMETHOPRIM 16339705339 Active Simon Castillo MD Active AZITHROMYCIN 250 MG ORAL TABLET 2 po qd x 1, then 1 po qd x 4 AZITHROMYCIN 10869409183 No Longer Active Simon Castillo MD Active PROMETHAZINE-CODEINE 6.25-10 MG/5ML ORAL SYRUP 5ml po qHS PRN Cough PROMETHAZINE-CODEINE 95524887538 No Longer Active Simon Castillo MD Active SINGULAIR 10 MG ORAL TABLET 1 po qd PRN Asthma/Allergies MONTELUKAST SODIUM 29751366290 Active Simon Castillo MD Active PREDNISONE 20 MG ORAL TABLET 2 po qd x 5 days PREDNISONE 61420146209 No Longer Active Simon Castillo MD Active VIAGRA 100 MG ORAL TABLET 0.5 to 1 po qd PRN Erectile dysfunction SILDENAFIL CITRATE 91251359090 Active Simon Castillo MD Active LUTEIN-ZEAXANTHIN 6-1 MG ORAL TABLET 2 po qd LUTEIN- ZEAXANTHIN 05893892005 Active Simon Castillo MD Active BILBERRY CAPSULE 1 po qd BILBERRY (VACCINIUM MYRTILLUS) CAPS 26224431006 Active Simon Castillo MD Active TRAMADOL HCL 50 MG ORAL TABLET 1-2 tablets every 6 hours as needed for pain TRAMADOL HCL 55797097616 No Longer Active Simon Castillo MD Active HYDROCODONE-ACETAMINOPHEN 5-325 MG ORAL TABLET 1 tab by mouth 8 hours as needed for pain HYDROCODONE-ACETAMINOPHEN 84729561259 No Longer Active Simon Castillo MD Active BUMETANIDE 0.5 MG ORAL TABLET 1 po qd BUMETANIDE 01118741284 Active Simon Castillo MD Active AUGMENTIN 875-125 MG ORAL TABLET 1 po BID x 10 days AMOXICILLIN-POT CLAVULANATE 74454025090 No Longer Active Simon Castillo MD Active PIOGLITAZONE HCL 30 MG ORAL TABLET 1 po qd PIOGLITAZONE HCL 99148612752 Active Simon Castillo MD Active GLIMEPIRIDE 4 MG ORAL TABLET 1 po BID GLIMEPIRIDE 60212709246 Active Simon Castillo MD Active ASPIRIN EC 81 MG ORAL TABLET DELAYED RELEASE 1 po qd ASPIRIN 23025335733 Active Simon Castillo MD Active CLOTRIMAZOLE 1 % EXTERNAL CREAM Apply to affected area of feet twice daily PRN Rash CLOTRIMAZOLE 12154515154 No Longer Active Simon Castillo MD Active PREDNISONE 5 MG ORAL TABLET 1 po BID PREDNISONE 72915233502 Active Dolly MCDERMOTT Active FISH OIL 1000 MG ORAL CAPSULE DELAYED RELEASE 1 po BID OMEGA- 3 FATTY ACIDS 55452293098 Active Simon Castillo MD Active LISINOPRIL 10 MG ORAL TABLET 1 p qd LISINOPRIL 09747105862 Active Simon Castillo MD Active CLARITIN 10 MG ORAL TABLET 1 tablet by mouth daily as needed for allergies LORATADINE 01585396827 No Longer Active Simon Castillo MD Active TRIAMCINOLONE ACETONIDE 0.1 % EXTERNAL OINTMENT Apply to affected areas TID for up to 2 weeks TRIAMCINOLONE ACETONIDE 24994973525 No Longer Active Simon Castillo MD Active LASIX 20 MG ORAL TABLET 1 tablet by mouth daily x 2 days FUROSEMIDE 26631292062 No Longer Active Simon Castillo MD Active SULFASALAZINE 500 MG ORAL TABLET DELAYED RELEASE 2 tabs BID 02/26 SULFASALAZINE 38181698625 No Longer Active Neto Oshea DO Active PREDNISONE 20 MG ORAL TABLET 2 tabs daily for 3 days, 1 tab daily for 3 days, 1/2 tab daily for 2 days PREDNISONE 68781732445 No Longer Active Jillina Fratico HEMPHILL Active PREDNISONE 20 MG ORAL TABLET 1 tablet daily for airway inflammation PREDNISONE 93988771440 No Longer Active Jillina Frazell BROADCAST OPERATIONS MANAGER Active AZITHROMYCIN 250 MG ORAL TABLET 2 po qd x 1 day, then 1 po qd x 4 days 01/28 AZITHROMYCIN 49031971347 No Longer Active Jillina Fraamayal BROADCAST OPERATIONS MANAGER Active TRAMADOL HCL 50 MG ORAL TABLET 1 po q6hr PRN Pain TRAMADOL HCL 87732080029 No Longer Active Simon Castillo MD Active PREDNISONE 5 MG ORAL TABLET 1 po qod PREDNISONE 79573626668 No Longer Active Simon Castillo MD Active SYMBICORT 160-4.5 MCG/ACT INHALATION AEROSOL 2 puff BID BUDESONIDE-FORMOTEROL FUMARATE 16617829724 No Longer Active Simon Castillo MD Active FLONASE 50 MCG/ACT NASAL SUSPENSION 2 puffs in each nostril daily FLUTICASONE PROPIONATE 75418024093 No Longer Active Simon Castillo MD Active PREDNISONE 20 MG ORAL TABLET 2 tabs daily for 5 days, then 1 daily for 5 days PREDNISONE 34112415192 No Longer Active Simon Castillo MD Active PREDNISONE 20 MG ORAL TABLET 2 tabs daily for 5 days, then 1 daily for 5 days , then 0.5 for 4 days PREDNISONE 23402159866 No Longer Active Simon Castillo MD Active PREDNISONE 20 MG ORAL TABLET 2 tabs daily for 3 days, 1 tab daily for 3 days, 1/2 tab daily for 2 days PREDNISONE 81365900432 No Longer Active Simon Castillo MD Active AZITHROMYCIN 250 MG ORAL TABLET 2 po qd x 1 day, then 1 po qd x 4 days 03/16 AZITHROMYCIN 92150024223 No Longer Active Simon Castillo MD Active CARVEDILOL 6.25 MG ORAL TABLET 1 po BID CARVEDILOL 23276036257 Active Simon Castillo MD Active LISINOPRIL-HYDROCHLOROTHIAZIDE 20-12.5 MG ORAL TABLET 1/2 tab by mouth daily LISINOPRIL-HYDROCHLOROTHIAZIDE 50703362070 No Longer Active Simon Castillo MD Active PREDNISONE 5 MG ORAL TABLET Take one po qod PREDNISONE 87898857179 No Longer Active Simon Castillo MD Active GLYBURIDE 5 MG ORAL TABLET Take one by mouth daily GLYBURIDE 54383212125 No Longer Active Simon Castillo MD Active LEVAQUIN 750 MG ORAL TABLET 1 po qod x 5 doses LEVOFLOXACIN 44322401353 No Longer Active Simon Castillo MD Active CETIRIZINE HCL 10 MG ORAL TABLET 1 po qd as needed for allergies CETIRIZINE HCL 44071881877 No Longer Active Simon Castillo MD Active ATENOLOL 50 MG ORAL TABLET Take one by mouth daily ATENOLOL 02963442163 No Longer Active Simon Castillo MD Active FLONASE 50 MCG/ACT NASAL SUSPENSION 2 puffs in each nostril daily FLUTICASONE PROPIONATE 32058138498 No Longer Active Simon Castillo MD Active GLYBURIDE 5 MG ORAL TABLET Take one by mouth daily GLYBURIDE 11735891058 No Longer Active Simon Castillo MD Active SYMBICORT 80-4.5 MCG/ACT INHALATION AEROSOL 2 puffs twice a day BUDESONIDE-FORMOTEROL FUMARATE 53842195619 No Longer Active Simon Castillo MD Active PREDNISONE 20 MG ORAL TABLET 2 tabs daily for 4 days, 1 tab daily for 4 days, 1/2 tab daily for 4 days PREDNISONE 28695811068 No Longer Active Simon Castillo MD Active AMOXICILLIN 500 MG ORAL CAPSULE 2 po BID x 10 days AMOXICILLIN 57672039481 No Longer Active Simon Castillo MD Active METFORMIN HCL 1000 MG ORAL TABLET 1 by mounth twice a day METFORMIN HCL 63162229254 No Longer Active Simon Castillo MD Active IBUPROFEN 800 MG ORAL TABLET Take 1 tab every 6 hrs prn IBUPROFEN 31515694049 No Longer Active Simon Castillo MD Active GLYBURIDE 2.5 MG ORAL TABLET Take one by mouth daily GLYBURIDE 87841676931 No Longer Active Simon Castillo MD Active LANCETS 2 qd LANCETS 82999148293 Active Pamela Conde Active ACACIA CONTOUR TEST IN VITRO STRIP Use with testing twice daily GLUCOSE BLOOD 50638261042 Active Simon Castillo MD Active GLYBURIDE 2.5 MG ORAL TABLET Take one by mouth daily GLYBURIDE 2.5 MG ORAL TABLET 869463 GLYBURIDE Inactive PREDNISONE 20 MG ORAL TABLET 2 tabs daily for 4 days, 1 tab daily for 4 days, 1/2 tab daily for 4 days PREDNISONE 20 MG ORAL TABLET 287775 PREDNISONE Inactive SYMBICORT 80-4.5 MCG/ACT INHALATION AEROSOL 2 puffs twice a day SYMBICORT 80-4.5 MCG/ACT INHALATION AEROSOL BUDESONIDE- FORMOTEROL FUMARATE Inactive FLONASE 50 MCG/ACT NASAL SUSPENSION 2 puffs in each nostril daily FLONASE 50 MCG/ACT NASAL SUSPENSION 2889066 FLUTICASONE PROPIONATE Inactive ATENOLOL 50 MG ORAL TABLET Take one by mouth daily ATENOLOL 50 MG ORAL TABLET 689632 ATENOLOL Inactive CETIRIZINE HCL 10 MG ORAL TABLET 1 po qd as needed for allergies CETIRIZINE HCL 10 MG ORAL TABLET 7426740 CETIRIZINE HCL Inactive LEVAQUIN 750 MG ORAL TABLET 1 po qod x 5 doses LEVAQUIN 750 MG ORAL TABLET 207704 LEVOFLOXACIN Inactive GLYBURIDE 5 MG ORAL TABLET Take one by mouth daily GLYBURIDE 5 MG ORAL TABLET 131537 GLYBURIDE Inactive PREDNISONE 5 MG ORAL TABLET Take one po qod PREDNISONE 5 MG ORAL TABLET 953790 PREDNISONE Inactive PREDNISONE 20 MG ORAL TABLET 2 tabs daily for 5 days, then 1 daily for 5 days PREDNISONE 20 MG ORAL TABLET 297040 PREDNISONE Inactive FLONASE 50 MCG/ACT NASAL SUSPENSION 2 puffs in each nostril daily FLONASE 50 MCG/ACT NASAL SUSPENSION 1761103 FLUTICASONE PROPIONATE Inactive SYMBICORT 160-4.5 MCG/ACT INHALATION AEROSOL 2 puff BID SYMBICORT 160-4.5 MCG/ACT INHALATION AEROSOL BUDESONIDE-FORMOTEROL FUMARATE Inactive PREDNISONE 5 MG ORAL TABLET 1 po qod PREDNISONE 5 MG ORAL TABLET 417943 PREDNISONE Inactive PREDNISONE 20 MG ORAL TABLET 1 tablet daily for airway inflammation PREDNISONE 20 MG ORAL TABLET 264263 PREDNISONE Inactive SULFASALAZINE 500 MG ORAL TABLET DELAYED RELEASE 2 tabs BID 02/26 SULFASALAZINE 500 MG ORAL TABLET DELAYED RELEASE 204737 SULFASALAZINE Inactive LASIX 20 MG ORAL TABLET 1 tablet by mouth daily x 2 days LASIX 20 MG ORAL TABLET 890772 FUROSEMIDE Inactive CLARITIN 10 MG ORAL TABLET 1 tablet by mouth daily as needed for allergies CLARITIN 10 MG ORAL TABLET 704379 LORATADINE Inactive CLOTRIMAZOLE 1 % EXTERNAL CREAM Apply to affected area of feet twice daily PRN Rash CLOTRIMAZOLE 1 % EXTERNAL CREAM 574022 CLOTRIMAZOLE Inactive HYDROCODONE-ACETAMINOPHEN 5-325 MG ORAL TABLET 1 tab by mouth 8 hours as needed for pain HYDROCODONE-ACETAMINOPHEN 5-325 MG ORAL TABLET 180411 HYDROCODONE-ACETAMINOPHEN Inactive TRAMADOL HCL 50 MG ORAL TABLET 1-2 tablets every 6 hours as needed for pain TRAMADOL HCL 50 MG ORAL TABLET 965078 TRAMADOL HCL Inactive PROMETHAZINE-CODEINE 6.25-10 MG/5ML ORAL SYRUP 5ml po qHS PRN Cough PROMETHAZINE-CODEINE 6.25-10 MG/5ML ORAL SYRUP 682127 PROMETHAZINE-CODEINE Inactive AZITHROMYCIN 250 MG ORAL TABLET 2 po qd x 1, then 1 po qd x 4 AZITHROMYCIN 250 MG ORAL TABLET 261964 AZITHROMYCIN Inactive AMOXICILLIN 500 MG ORAL CAPSULE 2 po BID x 10 days AMOXICILLIN 500 MG ORAL CAPSULE 956102 AMOXICILLIN Inactive GLYBURIDE 5 MG ORAL TABLET Take one by mouth daily GLYBURIDE 5 MG ORAL TABLET 287618 GLYBURIDE Inactive AZITHROMYCIN 250 MG ORAL TABLET 2 po qd x 1 day, then 1 po qd x 4 days 03/16 AZITHROMYCIN 250 MG ORAL TABLET 939303 AZITHROMYCIN Inactive PREDNISONE 20 MG ORAL TABLET 2 tabs daily for 3 days, 1 tab daily for 3 days, 1/2 tab daily for 2 days PREDNISONE 20 MG ORAL TABLET 027827 PREDNISONE Inactive PREDNISONE 20 MG ORAL TABLET 2 tabs daily for 5 days, then 1 daily for 5 days , then 0.5 for 4 days PREDNISONE 20 MG ORAL TABLET 005779 PREDNISONE Inactive AZITHROMYCIN 250 MG ORAL TABLET 2 po qd x 1 day, then 1 po qd x 4 days 01/28 AZITHROMYCIN 250 MG ORAL TABLET 533365 AZITHROMYCIN Inactive PREDNISONE 20 MG ORAL TABLET 2 tabs daily for 3 days, 1 tab daily for 3 days, 1/2 tab daily for 2 days PREDNISONE 20 MG ORAL TABLET 420822 PREDNISONE Inactive TRIAMCINOLONE ACETONIDE 0.1 % EXTERNAL OINTMENT Apply to affected areas TID for up to 2 weeks TRIAMCINOLONE ACETONIDE 0.1 % EXTERNAL OINTMENT 8882767 TRIAMCINOLONE ACETONIDE Inactive AUGMENTIN 875-125 MG ORAL TABLET 1 po BID x 10 days AUGMENTIN 875-125 MG ORAL TABLET 586293 AMOXICILLIN-POT CLAVULANATE Inactive PREDNISONE 20 MG ORAL TABLET 2 po qd x 5 days PREDNISONE 20 MG ORAL TABLET 588641 PREDNISONE Inactive Immunizations Vaccine Administration Date Value [...] Peptide - Chemistry sodium, serum 142 mmol/L 585-382 7710/07/18 potassium, serum 5.0 mmol/L 3.5-5.2 chloride, serum [...] Panel - Chemistry sodium, serum 138 mmol/L 497-033 0568/06/04 carbon dioxide, venous blood 23.4 mmol/L 21.0-32.0 [...] Rate - Chemistry sodium, serum 142 mmol/L 655-593 7745/02/27 carbon dioxide, venous blood 26.2 mmol/L 21.0-32.0 [...] Panel - Chemistry sodium, serum 140 mmol/L 761-645 7542/07/13 carbon dioxide, venous blood 23.7 mmol/L 21.0-32.0 [...] dipstick Negative Negative sodium, serum 142 mmol/L 065-937 6989/01/08 carbon dioxide, venous blood 23.9 mmol/L 21.0-32.0 [...] Negative;Positive Encounters Code Encounter Date Provider Facility CPT-84586 Level 4 Est. Patient 11:32:07 CDT [facility] CPT-84931 Level 3 Est. Patient 11:36:15 CDT [facility] CPT-96828 Level 4 Est. Patient 14:06:23 PREPARATION CENTER COORDINATOR Simon Castillo MD [facility] CPT-15138 Level 3 Est. Patient 12:04:38 PREPARATION CENTER COORDINATOR Giles Tatum [facility] CPT-14854 Level 3 Est. Patient 11:57:09 PREPARATION CENTER COORDINATOR Giles Tatum [facility] CPT-76169 Level 3 Est. Patient 11:48:57 PREPARATION CENTER COORDINATOR Giles Tatum [facility] CPT-07040 Level 4 Est. Patient 09:54:36 CDT Simon Castillo MD [facility] CPT-74910 Level 4 Est. Patient 08:48:38 CDT Simon Castillo MD [facility] CPT-30670 Level 4 Est. Patient 09:54:08 CDT Simon Castillo MD [facility] CPT-88983 Level 4 Est. Patient 16:11:23 CDT Simon Castillo MD [facility] CPT-27875 Level 4 Est. Patient 09:29:28 PREPARATION CENTER COORDINATOR Simon Castillo MD [facility] CPT-00301 Level 3 Est. Patient 09:18:25 CDT Simon Castillo MD [facility] CPT-33862 Level 4 Est. Patient 11:51:23 CDT Simon Castillo MD [facility] CPT-04293 Level 4 Est. Patient 14:32:04 CDT Neto Oshea DO [facility] CPT-90087 Level 3 Est. Patient 08:41:43 CDT Jillina Nashzell [facility] CPT-51510 Level 3 Est. Patient 08:40:53 CDT Jillina Frazell [facility] CPT-42506 Level 3 Est. Patient 08:36:52 CDT Jillina Frazell [facility] CPT-46195 Level 3 Est. Patient 09:08:44 CDT Jillina Nashzell [facility] CPT-17333 Level 4 Est. Patient 09:17:32 PREPARATION CENTER COORDINATOR Simon Castillo MD [facility] CPT-42865 Level 3 Est. Patient 11:22:22 PREPARATION CENTER COORDINATOR Simon Castillo MD [facility] CPT-73869 Level 3 Est. Patient 09:02:14 CDT Simon Castillo MD [facility] CPT-74084 Level 4 Est. Patient 08:47:25 CDT Simon Castillo MD [facility] CPT-40593 Level 4 Est. Patient 10:17:25 CDT Simon Castillo MD [facility] CPT-51875 Level 4 Est. Patient 10:10:09 PREPARATION CENTER COORDINATOR Simon Castillo MD [facility] CPT-37667 Level 4 Est. Patient 11:48:19 CDT Simon Castillo MD [facility] CPT-92629 Level 4 Est. Patient 08:59:29 CDT Simon Castillo MD [facility] CPT-22591 Level 4 Est. Patient 10:52:51 PREPARATION CENTER COORDINATOR Simon Castillo MD [facility] CPT-34454 Level 4 Est. Patient 11:50:30 CDT Simon Castillo MD [facility] CPT-55388 Level 4 Est. Patient 09:54:46 CDT Simon Castillo MD [facility] CPT-91316 Level 3 Est. Patient 11:10:14 CDT Simon Castillo MD [facility] CPT-22466 Level 4 Est. Patient 09:44:02 CDT Simon Castillo MD [facility] CPT-38509 Level 3 Est. Patient 09:27:48 CDT Simon Castillo MD [facility] CPT-33772 Level 3 Est. Patient 09:58:06 PREPARATION CENTER COORDINATOR Simon Castillo MD [facility] CPT-48938 Level 3 Est. Patient 09:51:35 CDT Simon Castillo MD [facility] Procedures Code Procedure Name Date Entry Date Standard Description CPT-33643 EKG Trac and Interp - XRAY USE ONLY 11:41:45 CDT 02/23 CPT-52126 Chest, 2 views 11:41:45 CDT CPT-02782 EKG Trac and Interp - XRAY USE ONLY 12:19:18 PREPARATION CENTER COORDINATOR 09/29 CPT-81517 Chest, 2 views 12:19:17 PREPARATION CENTER COORDINATOR CPT-Cryo Cryotherapy 09:54:37 CDT CPT-30523 First Vx - Ix admin for Medicare patients 09:13:10 CDT CPT-95560 Fluzone High-Dose Intramuscular Suspension 09:13:10 CDT CPT-G0439 Subsequent Annual Wellness Exam 09:41:17 CDT CPT-90538 Lipid - LAB USE ONLY 17:15:33 CDT CPT-50523 HGBA1C - LAB USE ONLY 17:15:33 CDT CPT-91859 CMP - LAB USE ONLY 17:15:33 CDT CPT-90600 Venipuncture Draw Fee 17:15:33 CDT CPT-TCM[facility] Transitional Care Mgmt-High 11:01:28 PREPARATION CENTER COORDINATOR CPT-92435 First Vx - Ix admin for Medicare patients 17:33:39 CDT CPT-60259 Fluzone High-Dose Intramuscular Suspension 17:33:39 CDT CPT-G0438 Initial Annual Wellness Exam 08:57:30 CDT CPT-32863 Chest 2V Frontal and Lat - XRAY USE ONLY 09:00:14 CDT CPT-82033 Venipuncture Draw Fee 13:33:02 CDT CPT-92067 Bone Density 09:37:49 PREPARATION CENTER COORDINATOR CPT-37645 Fluzone High Dose 17:20:42 CDT CPT-64180 Prevnar 13 17:20:42 CDT CPT-64790 Administration 2+ single or combination vaccines inc oral 17:20:42 CDT CPT-28394 Administration single or combination vaccine inc oral 17 :20:42 CDT CPT-73721 Hand comp min 3V 09:24:38 CDT CPT-02507 Venipuncture Draw Fee 08:07:29 PREPARATION CENTER COORDINATOR CPT-80325 Venipuncture Draw Fee 09:02:51 PREPARATION CENTER COORDINATOR CPT-70442 Venipuncture Draw Fee 12:45:08 PREPARATION CENTER COORDINATOR CPT-37176 Venipuncture Draw Fee 09:25:31 CDT CPT-G0008 Administration of Influenza Virus Vaccine 14:41:29 CDT CPT-57475 Fluzone High-Dose Intramuscular Suspension 14:41:29 CDT CPT-Cryo Cryotherapy 11:48:20 CDT CPT-22051 EKG Trac and Interp 09:21:58 CDT CPT-51332 Chest 2V Frontal and Lat 09:21:58 CDT CPT-Cryo Cryotherapy 10:54:51 PREPARATION CENTER COORDINATOR CPT-43964 Administration 2+ single or combination vaccines inc oral 10:42:19 CDT CPT-55606 Administration single or combination vaccine inc oral 10 :42:19 CDT CPT-51004 Pneumovax 10:42:19 CDT CPT-04407 Influenza High Dose age 65+ 10:42:19 CDT CPT-15141 Administration single or combination vaccine inc oral 13 :18:54 CDT CPT-93814 Influenza High Dose age 65+ 13:18:54 CDT CPT-19153 Venipuncture Draw Fee 11:53:16 CDT CPT-88568 LS spine comp w obliq 11:03:13 CDT CPT-Cryo Cryotherapy 08:27:16 PREPARATION CENTER COORDINATOR CPT-72129 Administration single or combination vaccine inc oral 10 :56:34 CDT CPT-91772 Influenza High Dose age 65+ 10:56:34 CDT
--- OUTSIDE RECORDS SUMMARY | 2018-03-31 17:52 | XMS REPORT | Clinical Summary ---
Author Author Admin, E Organization [employer] Address Unknown Phone Unavailable Allergies, Adverse Reactions, Alerts Allergy Name Reaction Description Start Date Severity Status Provider No Known Allergies Dlolyshira Wong BALDEMAR Conditions or Problems Problem Name [...] Simon Castillo MD Rheumatoid arthritis Steroid use, care home V58.65 Resolved Simon Castillo MD Long-term [...] Simon Castillo MD SINUSITIS, ACUTE ICD-461.9 Inactive iSmon Castillo MD SCIATICA ICD-724.3 Inactive Simon Castillo MD 2012 ABDOMINAL PAIN RIGHT LOWER QUADRANT ICD-789.03 Inactive Simon Castillo MD Actinic keratosis ICD-702.0 Inactive Simon Castillo MD BENIGN PROSTATIC HYPERTROPHY, MILD, HX OF ICD-V13.89 Inactive Simon Castillo MD Cough ICD-786.2 Inactive Simon Castillo MD Eczema ICD-692.9 Inactive Simon Castillo MD 02/27 Bronchitis, acute ICD-466.0 Kerry Castillo MD Chest pain ICD-786.50 Inactive [...] lobe ICD-486 Kerry Castillo MD Steroid use, care home ICD-V58.65 Kerry Castillo MD Hand pain, bilateral ICD-729.5 Kerry Castillo MD Syncope and collapse ICD-780.2 Kerry Castillo MD abrasion, face, infected ICD-910.1 Kerry Castillo MD Other injury of unspecified body region, initial encounter ICD-879.8 Kerry Castillo MD Lesion of skin of face ICD-709.9 Kerry Castillo MD Sinusitis, acute ICD-461.9 Inactive Simon Castillo MD Dyspnea ICD-786.09 Inactive Simon Castillo MD 2016 Medication List Medication Instructions Start Date Stop Date Generic Name ND Status Provider Patient Instruction VIAGRA 100 MG ORAL TABLET 0.5 to 1 po qd PRN Erectile dysfunction SILDENAFIL CITRATE 03114796032 Active Simon Castillo MD Active LUTEIN-ZEAXANTHIN 6-1 MG ORAL TABLET 2 po qd LUTEIN- ZEAXANTHIN 17075993211 Active Simon Castillo MD Active BILBERRY CAPSULE 1 po qd BILBERRY (VACCINIUM MYRTILLUS) CAPS 76652313724 Active Simon Castillo MD Active TRAMADOL HCL 50 MG ORAL TABLET 1-2 tablets every 6 hours as needed for pain TRAMADOL HCL 22714437326 No Longer Active Simon Castillo MD Active HYDROCODONE-ACETAMINOPHEN 5-325 MG ORAL TABLET 1 tab by mouth 8 hours as needed for pain HYDROCODONE-ACETAMINOPHEN 97844343909 No Longer Active Simon Castillo MD Active BUMETANIDE 0.5 MG ORAL TABLET 1 po qd BUMETANIDE 68696238467 Active Simon Castillo MD Active AUGMENTIN 875-125 MG ORAL TABLET 1 po BID x 10 days AMOXICILLIN-POT CLAVULANATE 63888407035 No Longer Active Simon Castillo MD Active PIOGLITAZONE HCL 30 MG ORAL TABLET 1 po qd PIOGLITAZONE HCL 51551612323 Active Simon Castillo MD Active GLIMEPIRIDE 4 MG ORAL TABLET 1 po BID GLIMEPIRIDE 14162286077 Active Simon Castillo MD Active ASPIRIN EC 81 MG ORAL TABLET DELAYED RELEASE 1 po qd ASPIRIN 76826806047 Active Simon Castillo MD Active CLOTRIMAZOLE 1 % EXTERNAL CREAM Apply to affected area of feet twice daily PRN Rash CLOTRIMAZOLE 99539298161 No Longer Active Simon Castillo MD Active PREDNISONE 5 MG ORAL TABLET 1 po BID PREDNISONE 41071533868 Active Dolly MCDERMOTT Active FISH OIL 1000 MG ORAL CAPSULE DELAYED RELEASE 1 po BID OMEGA- 3 FATTY ACIDS 44921850610 Active Simon Castillo MD Active LISINOPRIL 10 MG ORAL TABLET 1 p qd LISINOPRIL 50675656006 Active Simon Castillo MD Active CLARITIN 10 MG ORAL TABLET 1 tablet by mouth daily as needed for allergies LORATADINE 88584355572 No Longer Active Simon Castillo MD Active TRIAMCINOLONE ACETONIDE 0.1 % EXTERNAL OINTMENT Apply to affected areas TID for up to 2 weeks TRIAMCINOLONE ACETONIDE 14804223738 No Longer Active Simon Castillo MD Active LASIX 20 MG ORAL TABLET 1 tablet by mouth daily x 2 days FUROSEMIDE 19670642860 No Longer Active Simon Castillo MD Active SULFASALAZINE 500 MG ORAL TABLET DELAYED RELEASE 2 tabs BID 02/26 SULFASALAZINE 41342242415 No Longer Active Neto Oshea DO Active PREDNISONE 20 MG ORAL TABLET 2 tabs daily for 3 days, 1 tab daily for 3 days, 1/2 tab daily for 2 days PREDNISONE 80611283034 No Longer Active Jillina Fratico [place] Active PREDNISONE 20 MG ORAL TABLET 1 tablet daily for airway inflammation PREDNISONE 97087295075 No Longer Active Jillina Fraamayal [place] Active AZITHROMYCIN 250 MG ORAL TABLET 2 po qd x 1 day, then 1 po qd x 4 days 01/28 AZITHROMYCIN 88585274939 No Longer Active Jillina Fraamayal [place] Active TRAMADOL HCL 50 MG ORAL TABLET 1 po q6hr PRN Pain TRAMADOL HCL 62077208272 No Longer Active Simon Castillo MD Active PREDNISONE 5 MG ORAL TABLET 1 po qod PREDNISONE 90909156342 No Longer Active Simon Castillo MD Active SYMBICORT 160-4.5 MCG/ACT INHALATION AEROSOL 2 puff BID BUDESONIDE-FORMOTEROL FUMARATE 70124793744 No Longer Active Simon Castillo MD Active FLONASE 50 MCG/ACT NASAL SUSPENSION 2 puffs in each nostril daily FLUTICASONE PROPIONATE 60709158866 No Longer Active Simon Castillo MD Active PREDNISONE 20 MG ORAL TABLET 2 tabs daily for 5 days, then 1 daily for 5 days PREDNISONE 95789718613 No Longer Active Simon Castillo MD Active PREDNISONE 20 MG ORAL TABLET 2 tabs daily for 5 days, then 1 daily for 5 days , then 0.5 for 4 days PREDNISONE 78697560699 No Longer Active Simon Castillo MD Active PREDNISONE 20 MG ORAL TABLET 2 tabs daily for 3 days, 1 tab daily for 3 days, 1/2 tab daily for 2 days PREDNISONE 45058914787 No Longer Active Simon Castillo MD Active AZITHROMYCIN 250 MG ORAL TABLET 2 po qd x 1 day, then 1 po qd x 4 days 03/16 AZITHROMYCIN 72255714590 No Longer Active Simon Castillo MD Active CARVEDILOL 6.25 MG ORAL TABLET 1 po BID CARVEDILOL 27425050565 Active Simon Castillo MD Active LISINOPRIL-HYDROCHLOROTHIAZIDE 20-12.5 MG ORAL TABLET 1/2 tab by mouth daily LISINOPRIL-HYDROCHLOROTHIAZIDE 11822094791 No Longer Active Simon Castillo MD Active PREDNISONE 5 MG ORAL TABLET Take one po qod PREDNISONE 68534807442 No Longer Active Simon Castillo MD Active GLYBURIDE 5 MG ORAL TABLET Take one by mouth daily GLYBURIDE 22160545009 No Longer Active Simon Castillo MD Active LEVAQUIN 750 MG ORAL TABLET 1 po qod x 5 doses LEVOFLOXACIN 44944452890 No Longer Active Simon Castillo MD Active CETIRIZINE HCL 10 MG ORAL TABLET 1 po qd as needed for allergies CETIRIZINE HCL 34394862338 No Longer Active Simon Castillo MD Active ATENOLOL 50 MG ORAL TABLET Take one by mouth daily ATENOLOL 14412574790 No Longer Active Simon Castillo MD Active FLONASE 50 MCG/ACT NASAL SUSPENSION 2 puffs in each nostril daily FLUTICASONE PROPIONATE 14790431696 No Longer Active Simon Castillo MD Active GLYBURIDE 5 MG ORAL TABLET Take one by mouth daily GLYBURIDE 64595553295 No Longer Active Simon Castillo MD Active SYMBICORT 80-4.5 MCG/ACT INHALATION AEROSOL 2 puffs twice a day BUDESONIDE-FORMOTEROL FUMARATE 68531489164 No Longer Active Simon Castillo MD Active PREDNISONE 20 MG ORAL TABLET 2 tabs daily for 4 days, 1 tab daily for 4 days, 1/2 tab daily for 4 days PREDNISONE 79380072745 No Longer Active Simon Castillo MD Active AMOXICILLIN 500 MG ORAL CAPSULE 2 po BID x 10 days AMOXICILLIN 40345433410 No Longer Active Simon Castillo MD Active METFORMIN HCL 1000 MG ORAL TABLET 1 by mounth twice a day METFORMIN HCL 66079340363 No Longer Active Simon Castillo MD Active IBUPROFEN 800 MG ORAL TABLET Take 1 tab every 6 hrs prn IBUPROFEN 19063854172 No Longer Active Simon Castillo MD Active GLYBURIDE 2.5 MG ORAL TABLET Take one by mouth daily GLYBURIDE 44706097390 No Longer Active Simon Castillo MD Active LANCETS 2 qd LANCETS 85173815311 Active Pamela Conde Active ACACIA CONTOUR TEST IN VITRO STRIP Use with testing twice daily GLUCOSE BLOOD 45824307745 Active Simon Castillo MD Active GLYBURIDE 2.5 MG ORAL TABLET Take one by mouth daily GLYBURIDE 2.5 MG ORAL TABLET 519119 GLYBURIDE Inactive PREDNISONE 20 MG ORAL TABLET 2 tabs daily for 4 days, 1 tab daily for 4 days, 1/2 tab daily for 4 days PREDNISONE 20 MG ORAL TABLET 119197 PREDNISONE Inactive SYMBICORT 80-4.5 MCG/ACT INHALATION AEROSOL 2 puffs twice a day SYMBICORT 80-4.5 MCG/ACT INHALATION AEROSOL BUDESONIDE- FORMOTEROL FUMARATE Inactive FLONASE 50 MCG/ACT NASAL SUSPENSION 2 puffs in each nostril daily FLONASE 50 MCG/ACT NASAL SUSPENSION 5453459 FLUTICASONE PROPIONATE Inactive ATENOLOL 50 MG ORAL TABLET Take one by mouth daily ATENOLOL 50 MG ORAL TABLET 740144 ATENOLOL Inactive CETIRIZINE HCL 10 MG ORAL TABLET 1 po qd as needed for allergies CETIRIZINE HCL 10 MG ORAL TABLET 4467026 CETIRIZINE HCL Inactive LEVAQUIN 750 MG ORAL TABLET 1 po qod x 5 doses LEVAQUIN 750 MG ORAL TABLET 579501 LEVOFLOXACIN Inactive GLYBURIDE 5 MG ORAL TABLET Take one by mouth daily GLYBURIDE 5 MG ORAL TABLET 745603 GLYBURIDE Inactive PREDNISONE 5 MG ORAL TABLET Take one po qod PREDNISONE 5 MG ORAL TABLET 283145 PREDNISONE Inactive PREDNISONE 20 MG ORAL TABLET 2 tabs daily for 5 days, then 1 daily for 5 days PREDNISONE 20 MG ORAL TABLET 027072 PREDNISONE Inactive FLONASE 50 MCG/ACT NASAL SUSPENSION 2 puffs in each nostril daily FLONASE 50 MCG/ACT NASAL SUSPENSION 9802444 FLUTICASONE PROPIONATE Inactive SYMBICORT 160-4.5 MCG/ACT INHALATION AEROSOL 2 puff BID SYMBICORT 160-4.5 MCG/ACT INHALATION AEROSOL BUDESONIDE-FORMOTEROL FUMARATE Inactive PREDNISONE 5 MG ORAL TABLET 1 po qod PREDNISONE 5 MG ORAL TABLET 714553 PREDNISONE Inactive PREDNISONE 20 MG ORAL TABLET 1 tablet daily for airway inflammation PREDNISONE 20 MG ORAL TABLET 055454 PREDNISONE Inactive SULFASALAZINE 500 MG ORAL TABLET DELAYED RELEASE 2 tabs BID 02/26 SULFASALAZINE 500 MG ORAL TABLET DELAYED RELEASE 634842 SULFASALAZINE Inactive LASIX 20 MG ORAL TABLET 1 tablet by mouth daily x 2 days 2016/06/ 10 LASIX 20 MG ORAL TABLET 812696 FUROSEMIDE Inactive CLARITIN 10 MG ORAL TABLET 1 tablet by mouth daily as needed for allergies CLARITIN 10 MG ORAL TABLET 869384 LORATADINE Inactive CLOTRIMAZOLE 1 % EXTERNAL CREAM Apply to affected area of feet twice daily PRN Rash CLOTRIMAZOLE 1 % EXTERNAL CREAM 467244 CLOTRIMAZOLE Inactive HYDROCODONE-ACETAMINOPHEN 5-325 MG ORAL TABLET 1 tab by mouth 8 hours as needed for pain HYDROCODONE-ACETAMINOPHEN 5-325 MG ORAL TABLET 900919 HYDROCODONE-ACETAMINOPHEN Inactive TRAMADOL HCL 50 MG ORAL TABLET 1-2 tablets every 6 hours as needed for pain TRAMADOL HCL 50 MG ORAL TABLET 598320 TRAMADOL HCL Inactive AMOXICILLIN 500 MG ORAL CAPSULE 2 po BID x 10 days AMOXICILLIN 500 MG ORAL CAPSULE 343433 AMOXICILLIN Inactive GLYBURIDE 5 MG ORAL TABLET Take one by mouth daily GLYBURIDE 5 MG ORAL TABLET 007217 GLYBURIDE Inactive AZITHROMYCIN 250 MG ORAL TABLET 2 po qd x 1 day, then 1 po qd x 4 days 03/16 AZITHROMYCIN 250 MG ORAL TABLET 320879 AZITHROMYCIN Inactive PREDNISONE 20 MG ORAL TABLET 2 tabs daily for 3 days, 1 tab daily for 3 days, 1/2 tab daily for 2 days PREDNISONE 20 MG ORAL TABLET 776899 PREDNISONE Inactive PREDNISONE 20 MG ORAL TABLET 2 tabs daily for 5 days, then 1 daily for 5 days , then 0.5 for 4 days PREDNISONE 20 MG ORAL TABLET 108270 PREDNISONE Inactive AZITHROMYCIN 250 MG ORAL TABLET 2 po qd x 1 day, then 1 po qd x 4 days 01/28 AZITHROMYCIN 250 MG ORAL TABLET 020143 AZITHROMYCIN Inactive PREDNISONE 20 MG ORAL TABLET 2 tabs daily for 3 days, 1 tab daily for 3 days, 1/2 tab daily for 2 days PREDNISONE 20 MG ORAL TABLET 962318 PREDNISONE Inactive TRIAMCINOLONE ACETONIDE 0.1 % EXTERNAL OINTMENT Apply to affected areas TID for up to 2 weeks TRIAMCINOLONE ACETONIDE 0.1 % EXTERNAL OINTMENT 1896127 TRIAMCINOLONE ACETONIDE Inactive AUGMENTIN 875-125 MG ORAL TABLET 1 po BID x 10 days AUGMENTIN 875-125 MG ORAL TABLET 591492 AMOXICILLIN-POT CLAVULANATE Inactive Immunizations Vaccine Administration Date [...] Measured blood pressure, diastolic 75 mm[Hg] BP castlilo blood pressure, systolic 154 mm[Hg] BP sys [...] Peptide - Chemistry sodium, serum 142 mmol/L 890-430 1966/07/18 potassium, serum 5.0 mmol/L 3.5-5.2 chloride, serum [...] Rate - Chemistry sodium, serum 142 mmol/L 905-197 8987/02/27 carbon dioxide, venous blood 26.2 mmol/L 21.0-32.0 [...] Panel - Chemistry sodium, serum 140 mmol/L 625-794 7649/07/13 carbon dioxide, venous blood 23.7 mmol/L 21.0-32.0 [...] dipstick Negative Negative sodium, serum 142 mmol/L 903-250 6852/01/08 carbon dioxide, venous blood 23.9 mmol/L 21.0-32.0 [...] Negative;Positive Encounters Code Encounter Date Provider Facility CPT-35422 Level 4 Est. Patient 14:06:23 LITERACY COORDINATOR Simon Castillo MD [facility] CPT-54182 Level 3 Est. Patient 12:04:38 LITERACY COORDINATOR [facility] CPT-03760 Level 3 Est. Patient 11:57:09 LITERACY COORDINATOR [facility] CPT-45059 Level 3 Est. Patient 11:48:57 LITERACY COORDINATOR [facility] CPT-52663 Level 4 Est. Patient 09:54:36 CDT Simon Castillo MD [facility] CPT-63774 Level 4 Est. Patient 08:48:38 CDT Simon Castillo MD [facility] CPT-13846 Level 4 Est. Patient 09:54:08 CDT Simon Castillo MD [facility] CPT-62210 Level 4 Est. Patient 16:11:23 CDT Simon Castillo MD [facility] CPT-54134 Level 4 Est. Patient 09:29:28 LITERACY COORDINATOR Simon Castillo MD [facility] CPT-55266 Level 3 Est. Patient 09:18:25 CDT Simon Castillo MD [facility] CPT-26307 Level 4 Est. Patient 11:51:23 CDT Simon Castillo MD [facility] CPT-18457 Level 4 Est. Patient 14:32:04 CDT Neto Oshea DO [facility] CPT-14056 Level 3 Est. Patient 08:41:43 CDT [facility] CPT-51226 Level 3 Est. Patient 08:40:53 CDT [facility] CPT-08328 Level 3 Est. Patient 08:36:52 CDT [facility] CPT-73014 Level 3 Est. Patient 09:08:44 CDT [facility] CPT-05474 Level 4 Est. Patient 09:17:32 LITERACY COORDINATOR Simon Castillo MD [facility] CPT-90764 Level 3 Est. Patient 11:22:22 LITERACY COORDINATOR Simon Castillo MD [facility] CPT-71359 Level 3 Est. Patient 09:02:14 CDT Simon Castillo MD [facility] CPT-72173 Level 4 Est. Patient 08:47:25 CDT Simon Castillo MD [facility] CPT-95580 Level 4 Est. Patient 10:17:25 CDT Simon Castillo MD [facility] CPT-69165 Level 4 Est. Patient 10:10:09 LITERACY COORDINATOR Simon Castillo MD [facility] CPT-76287 Level 4 Est. Patient 11:48:19 CDT Simon Castillo MD [facility] CPT-25626 Level 4 Est. Patient 08:59:29 CDT Simon Castillo MD [facility] CPT-53022 Level 4 Est. Patient 10:52:51 LITERACY COORDINATOR Simon Castillo MD [facility] CPT-00783 Level 4 Est. Patient 11:50:30 CDT Simon Castillo MD [facility] CPT-13508 Level 4 Est. Patient 09:54:46 CDT Simon Castillo MD [facility] CPT-10335 Level 3 Est. Patient 11:10:14 CDT Simon Castillo MD [facility] CPT-80600 Level 4 Est. Patient 09:44:02 CDT Smion Castillo MD [facility] CPT-04202 Level 3 Est. Patient 09:27:48 CDT Simon Castillo MD [facility] CPT-96377 Level 3 Est. Patient 09:58:06 LITERACY COORDINATOR Simon Castillo MD [facility] CPT-57400 Level 3 Est. Patient 09:51:35 CDT Simon Castillo MD [facility] Procedures Code Procedure Name Date Entry Date Standard Description CPT-15832 EKG Trac and Interp - XRAY USE ONLY 12:19:18 LITERACY COORDINATOR 09/29 CPT-76335 Chest, 2 views 12:19:17 LITERACY COORDINATOR CPT-Cryo Cryotherapy 09:54:37 CDT CPT-43654 First Vx - Ix admin for Medicare patients 09:13:10 CDT CPT-84773 Fluzone High-Dose Intramuscular Suspension 09:13:10 CDT CPT-G0439 Subsequent Annual Wellness Exam 09:41:17 CDT CPT-32568 Lipid - LAB USE ONLY 17:15:33 CDT CPT-31462 HGBA1C - LAB USE ONLY 17:15:33 CDT CPT-23596 CMP - LAB USE ONLY 17:15:33 CDT CPT-90985 Venipuncture Draw Fee 17:15:33 CDT CPT-[facility] Transitional Care Mgmt-High 11:01:28 LITERACY COORDINATOR CPT-45708 First Vx - Ix admin for Medicare patients 17:33:39 CDT CPT-75667 Fluzone High-Dose Intramuscular Suspension 17:33:39 CDT CPT-G0438 Initial Annual Wellness Exam 08:57:30 CDT CPT-09891 Chest 2V Frontal and Lat - XRAY USE ONLY 09:00:14 CDT CPT-60220 Venipuncture Draw Fee 13:33:02 CDT CPT-59035 Bone Density 09:37:49 LITERACY COORDINATOR CPT-73642 Fluzone High Dose 17:20:42 CDT CPT-49667 Prevnar 13 17:20:42 CDT CPT-81561 Administration 2+ single or combination vaccines inc oral 17:20:42 CDT CPT-65322 Administration single or combination vaccine inc oral 17 :20:42 CDT CPT-99547 Hand comp min 3V 09:24:38 CDT CPT-76899 Venipuncture Draw Fee 08:07:29 LITERACY COORDINATOR CPT-74284 Venipuncture Draw Fee 09:02:51 LITERACY COORDINATOR CPT-96890 Venipuncture Draw Fee 12:45:08 LITERACY COORDINATOR CPT-07204 Venipuncture Draw Fee 09:25:31 CDT CPT-G0008 Administration of Influenza Virus Vaccine 14:41:29 CDT CPT-14603 Fluzone High-Dose Intramuscular Suspension 14:41:29 CDT CPT-Cryo Cryotherapy 11:48:20 CDT CPT-06412 EKG Trac and Interp 09:21:58 CDT CPT-02961 Chest 2V Frontal and Lat 09:21:58 CDT CPT-Cryo Cryotherapy 10:54:51 LITERACY COORDINATOR CPT-97392 Administration 2+ single or combination vaccines inc oral 10:42:19 CDT CPT-19354 Administration single or combination vaccine inc oral 10 :42:19 CDT CPT-78921 Pneumovax 10:42:19 CDT CPT-27305 Influenza High Dose age 65+ 10:42:19 CDT CPT-77079 Administration single or combination vaccine inc oral 13 :18:54 CDT CPT-32867 Influenza High Dose age 65+ 13:18:54 CDT CPT-79609 Venipuncture Draw Fee 11:53:16 CDT CPT-19048 LS spine comp w obliq 11:03:13 CDT CPT-Cryo Cryotherapy 08:27:16 LITERACY COORDINATOR CPT-86145 Administration single or combination vaccine inc oral 10 :56:34 CDT CPT-19450 Influenza High Dose age 65+ 10:56:34 CDT
--- OUTSIDE RECORDS SUMMARY | 2018-03-31 17:54 | XMS REPORT | Clinical Summary ---
Author Author Admin, E Organization [employer] 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 Kerry Castillo MD Steroid use, rn long term care ICD-V58.65 Kerry Castillo MD Hand pain, bilateral [...] MG ORAL TABS 1 po BID GLIMEPIRIDE 49911455842 Active Simon Castillo MD Active ASPIRIN EC 81 MG ORAL TBEC 1 po qd ASPIRIN 49728504976 Active Simon Castillo MD Active CLOTRIMAZOLE 1 % EXT CREA Apply to affected area of feet twice daily PRN Rash CLOTRIMAZOLE 36716666587 No Longer Active Simon Castillo MD Active PREDNISONE 5 MG TAB 1 po BID PREDNISONE 56159374562 Active Simon Castillo MD Active FISH OIL 1000 MG CPDR 1 po BID OMEGA-3 FATTY ACIDS 60723804500 Active Simon Castillo MD Active LISINOPRIL 10 MG TABS 1 p qd LISINOPRIL 13440260536 Active Simon Castillo MD Active CLARITIN 10 MG TAB 1 tablet by mouth daily as needed for allergies LORATADINE 78023514300 No Longer Active Simon Castillo MD Active TRIAMCINOLONE ACETONIDE 0.1 % OINT Apply to affected areas TID for up to 2 weeks TRIAMCINOLONE ACETONIDE 19319601035 No Longer Active Simon Castillo MD Active LASIX 20 MG TAB 1 tablet by mouth daily x 2 days FUROSEMIDE 36954083979 No Longer Active Simon Castillo MD Active SULFASALAZINE 500 MG ORAL TBEC 2 tabs BID SULFASALAZINE 61448584032 No Longer Active Neto Oshea DO Active PREDNISONE 20 MG TAB 2 tabs daily for 3 days, 1 tab daily for 3 days, 1/2 tab daily for 2 days PREDNISONE 20621550467 No Longer Active Jillina Frazell [employer] Active PREDNISONE 20 MG TAB 1 tablet daily for airway inflammation 02/25 PREDNISONE 57912243210 No Longer Active Jillina Frazell [employer] Active AZITHROMYCIN 250 MG TABS 2 po qd x 1 day, then 1 po qd x 4 days AZITHROMYCIN 26064635346 No Longer Active Jillina Frazell [employer] Active HYDROCODONE-ACETAMINOPHEN 5-325 MG TABS 1 tab by mouth 8 hours as needed for pain HYDROCODONE-ACETAMINOPHEN 17682383181 Active Simon Castillo MD Active TRAMADOL HCL 50 MG TABS 1 po q6hr PRN Pain TRAMADOL HCL 85001092912 No Longer Active Simon Castillo MD Active PREDNISONE 5 MG TABS 1 po qod PREDNISONE 94179163364 No Longer Active Simon Castillo MD Active SYMBICORT 160-4.5 MCG/ACT AERO 2 puff BID BUDESONIDE- FORMOTEROL FUMARATE 38801753148 No Longer Active Simon Castillo MD Active FLONASE 50 MCG/ACT SUSP 2 puffs in each nostril daily FLUTICASONE PROPIONATE 94654160110 No Longer Active Simon Castillo MD Active PREDNISONE 20 MG TAB 2 tabs daily for 5 days, then 1 daily for 5 days PREDNISONE 73222977365 No Longer Active Simon Castillo MD Active PREDNISONE 20 MG TAB 2 tabs daily for 5 days, then 1 daily for 5 days, then 0.5 for 4 days PREDNISONE 43696544403 No Longer Active Simon Castillo MD Active PREDNISONE 20 MG TAB 2 tabs daily for 3 days, 1 tab daily for 3 days, 1/2 tab daily for 2 days PREDNISONE 68243841504 No Longer Active Simon Castillo MD Active AZITHROMYCIN 250 MG TABS 2 po qd x 1 day, then 1 po qd x 4 days AZITHROMYCIN 92494631076 No Longer Active Simon Castillo MD Active CARVEDILOL 6.25 MG TABS 1 po BID CARVEDILOL 09842658970 Active Simon Castillo MD Active LISINOPRIL-HYDROCHLOROTHIAZIDE 20-12.5 MG TABS 1/2 tab by mouth daily LISINOPRIL-HYDROCHLOROTHIAZIDE 11834124141 No Longer Active Simon Castillo MD Active TRAMADOL HCL 50 MG TABS 1-2 tablets every 6 hours as needed for pain TRAMADOL HCL 69236296870 Active Jillina Frazell [employer] Active PREDNISONE 5 MG TAB Take one po qod PREDNISONE 75114418439 No Longer Active Simon Castillo MD Active GLYBURIDE 5 MG TAB Take one by mouth daily GLYBURIDE 49057299336 No Longer Active Simon Castillo MD Active LEVAQUIN 750 MG TABS 1 po qod x 5 doses LEVOFLOXACIN 87142053435 No Longer Active Simon Castillo MD Active CETIRIZINE HCL 10 MG TABS 1 po qd as needed for allergies CETIRIZINE HCL 54141206227 No Longer Active Simon Castillo MD Active BILBERRY CAPS 1 tab daily BILBERRY (VACCINIUM MYRTILLUS) CAPS 74358311549 Active Simon Castillo MD Active ATENOLOL 50 MG TABS Take one by mouth daily ATENOLOL 42910043862 No Longer Active Simon Castillo MD Active FLONASE 50 MCG/ACT SUSP 2 puffs in each nostril daily FLUTICASONE PROPIONATE 87762313238 No Longer Active Simon Castillo MD Active GLYBURIDE 5 MG TAB Take one by mouth daily GLYBURIDE 31925676569 No Longer Active Simon Castillo MD Active SYMBICORT 80-4.5 MCG/ACT AERO 2 puffs twice a day BUDESONIDE-FORMOTEROL FUMARATE 28093892952 No Longer Active Simon Castillo MD Active PREDNISONE 20 MG TAB 2 tabs daily for 4 days, 1 tab daily for 4 days, 1/2 tab daily for 4 days PREDNISONE 10205070232 No Longer Active Simon Castillo MD Active AMOXICILLIN 500 MG CAPS 2 po BID x 10 days AMOXICILLIN 06769014480 No Longer Active Simon Castillo MD Active METFORMIN HCL 1000 MG TABS 1 by [facility] twice a day METFORMIN HCL 82983180859 No Longer Active Simon Castillo MD Active LUTEIN-ZEAXANTHIN 6-1 MG TABS Take 2 by mouth daily LUTEIN-ZEAXANTHIN 94553337685 Active Simon Castillo MD Active IBUPROFEN 800 MG TABS Take 1 tab every 6 hrs prn IBUPROFEN 41367134426 No Longer Active Simon Castillo MD Active GLYBURIDE 2.5 MG TABS Take one by mouth daily GLYBURIDE 27467496765 No Longer Active Simon Castillo MD Active LANCETS MISC 2 qd LANCETS 75406451307 Active Pamela Conde Active ACACIA CONTOUR TEST STRP Use with testing twice daily GLUCOSE BLOOD 37722017802 Active Simon Castillo MD Active GLYBURIDE 2.5 MG TABS Take one by mouth daily GLYBURIDE 2.5 MG TABS 712480 GLYBURIDE Inactive PREDNISONE 20 MG TAB 2 tabs daily for 4 days, 1 tab daily for 4 days, 1/2 tab daily for 4 days PREDNISONE 20 MG TAB 986326 PREDNISONE Inactive SYMBICORT 80-4.5 MCG/ACT AERO 2 puffs twice a day SYMBICORT 80-4.5 MCG/ACT AERO BUDESONIDE-FORMOTEROL FUMARATE Inactive FLONASE 50 MCG/ACT SUSP 2 puffs in each nostril daily FLONASE 50 MCG/ACT SUSP FLUTICASONE PROPIONATE Inactive ATENOLOL 50 MG TABS Take one by mouth daily ATENOLOL 50 MG TABS 095086 ATENOLOL Inactive CETIRIZINE HCL 10 MG TABS 1 po qd as needed for allergies CETIRIZINE HCL 10 MG TABS 6408492 CETIRIZINE HCL Inactive LEVAQUIN 750 MG TABS 1 po qod x 5 doses LEVAQUIN 750 MG TABS 969227 LEVOFLOXACIN Inactive GLYBURIDE 5 MG TAB Take one by mouth daily GLYBURIDE 5 MG TAB 816121 GLYBURIDE Inactive PREDNISONE 5 MG TAB Take one po qod PREDNISONE 5 MG TAB 237417 PREDNISONE Inactive PREDNISONE 20 MG TAB 2 tabs daily for 5 days, then 1 daily for 5 days PREDNISONE 20 MG TAB 281505 PREDNISONE Inactive FLONASE 50 MCG/ACT SUSP 2 puffs in each nostril daily FLONASE 50 MCG/ACT SUSP FLUTICASONE PROPIONATE Inactive SYMBICORT 160-4.5 MCG/ACT AERO 2 puff BID SYMBICORT 160-4.5 MCG/ACT AERO BUDESONIDE-FORMOTEROL FUMARATE Inactive PREDNISONE 5 MG TABS 1 po qod PREDNISONE 5 MG TABS 748572 PREDNISONE Inactive PREDNISONE 20 MG TAB 1 tablet daily for airway inflammation 02/25 PREDNISONE 20 MG TAB 529501 PREDNISONE Inactive SULFASALAZINE 500 MG ORAL TBEC 2 tabs BID SULFASALAZINE 500 MG ORAL TBEC 661270 SULFASALAZINE Inactive LASIX 20 MG TAB 1 tablet by mouth daily x 2 days LASIX 20 MG TAB 998029 FUROSEMIDE Inactive CLARITIN 10 MG TAB 1 tablet by mouth daily as needed for allergies CLARITIN 10 MG TAB 503780 LORATADINE Inactive CLOTRIMAZOLE 1 % EXT CREA Apply to affected area of feet twice daily PRN Rash CLOTRIMAZOLE 1 % EXT CREA 664833 CLOTRIMAZOLE Inactive AMOXICILLIN 500 MG CAPS 2 po BID x 10 days AMOXICILLIN 500 MG CAPS 407554 AMOXICILLIN Inactive GLYBURIDE 5 MG TAB Take one by mouth daily GLYBURIDE 5 MG TAB 353212 GLYBURIDE Inactive AZITHROMYCIN 250 MG TABS 2 po qd x 1 day, then 1 po qd x 4 days AZITHROMYCIN 250 MG TABS 6350380 AZITHROMYCIN Inactive PREDNISONE 20 MG TAB 2 tabs daily for 3 days, 1 tab daily for 3 days, 1/2 tab daily for 2 days PREDNISONE 20 MG TAB 536783 PREDNISONE Inactive PREDNISONE 20 MG TAB 2 tabs daily for 5 days, then 1 daily for 5 days, then 0.5 for 4 days PREDNISONE 20 MG TAB 292521 PREDNISONE Inactive AZITHROMYCIN 250 MG TABS 2 po qd x 1 day, then 1 po qd x 4 days AZITHROMYCIN 250 MG TABS 9696558 AZITHROMYCIN Inactive PREDNISONE 20 MG TAB 2 tabs daily for 3 days, 1 tab daily for 3 days, 1/2 tab daily for 2 days PREDNISONE 20 MG TAB 747718 PREDNISONE Inactive TRIAMCINOLONE ACETONIDE 0.1 % OINT Apply to affected areas TID for up to 2 weeks TRIAMCINOLONE ACETONIDE 0.1 % OINT 4554262 TRIAMCINOLONE ACETONIDE Inactive Immunizations Vaccine Administration Date [...] Panel - Chemistry sodium, serum 137 mmol/L 898-235 1220/06/06 carbon dioxide, venous blood 24.9 mmol/L 21.0-32.0 [...] Panel - Chemistry cholesterol, serum 126 mg/dL 103-915 8839/02/07 triglyceride, serum, fasting 83 mg/dL 30-200 HDL cholesterol, serum 70 mg/dL 32-96 LDL cholesterol, serum 39 mg/dL 0-130 hemoglobin A1C, blood, as % of total hemoglobin 8.3 % 4.3-6.0 sodium, serum 141 mmol/L 081-019 0883/02/07 carbon dioxide, venous blood 26.0 mmol/L 21.0-32.0 [...] 2.6-7.2 Encounters Code Encounter Date Provider Facility CPT-60119 Level 4 Est. Patient 16:11:23 CDT Simon Castillo MD [facility] CPT-08853 Level 4 Est. Patient 09:29:28 BACK [employer]ER Simon Castillo MD [facility] CPT-11517 Level 3 Est. Patient 09:18:25 CDT Simon Castillo MD [facility] CPT-69385 Level 4 Est. Patient 11:51:23 CDT Simon Castillo MD [facility] CPT-88944 Level 4 Est. Patient 14:32:04 CDT Neto Oshea DO [facility] CPT-62994 Level 3 Est. Patient 08:41:43 CDT Giles Tatum [facility] CPT-41525 Level 3 Est. Patient 08:40:53 CDT Giles Tatum [facility] CPT-64742 Level 3 Est. Patient 08:36:52 CDT Giles Salcidol [facility] CPT-65148 Level 3 Est. Patient 09:08:44 CDT Giles Salcidol [facility] CPT-83762 Level 4 Est. Patient 09:17:32 BACK MAKER Simon Castillo MD [facility] CPT-42276 Level 3 Est. Patient 11:22:22 BACK MAKER Simon Castillo MD [facility] CPT-46637 Level 3 Est. Patient 09:02:14 CDT Simon Castillo MD [facility] CPT-79640 Level 4 Est. Patient 08:47:25 CDT Simon Castillo MD [facility] CPT-96554 Level 4 Est. Patient 10:17:25 CDT Simon Castillo MD [facility] CPT-77598 Level 4 Est. Patient 10:10:09 BACK MAKER Simon Castillo MD [facility] CPT-59765 Level 4 Est. Patient 11:48:19 CDT Simon Castillo MD [facility] CPT-02414 Level 4 Est. Patient 08:59:29 CDT Simon Castillo MD [facility] CPT-56829 Level 4 Est. Patient 10:52:51 BACK MAKER Simon Castillo MD [facility] CPT-33777 Level 4 Est. Patient 11:50:30 CDT Simon Castillo MD [facility] CPT-10882 Level 4 Est. Patient 09:54:46 CDT Simon Castillo MD [facility] CPT-16620 Level 3 Est. Patient 11:10:14 CDT Simon Castillo MD [facility] CPT-67646 Level 4 Est. Patient 09:44:02 CDT Simon Castillo MD [facility] CPT-17934 Level 3 Est. Patient 09:27:48 CDT Simon Castillo MD [facility] CPT-75570 Level 3 Est. Patient 09:58:06 BACK MAKER Simon Castillo MD [facility] CPT-01831 Level 3 Est. Patient 09:51:35 CDT Simon Castillo MD [facility] Procedures Code Procedure Name Date Entry Date Standard Description CPT-77089 Lipid - LAB USE ONLY 17:15:33 CDT CPT-08392 HGBA1C - LAB USE ONLY 17:15:33 CDT CPT-71086 CMP - LAB USE ONLY 17:15:33 CDT CPT-20397 Venipuncture Draw Fee 17:15:33 CDT CPT-[facility] Transitional Care Mgmt-High 11:01:28 BACK MAKER CPT-73364 First Vx - Ix admin for Medicare patients 17:33:39 CDT CPT-49433 Fluzone High-Dose Intramuscular Suspension 17:33:39 CDT CPT-G0438 Initial Annual Wellness Exam 08:57:30 CDT CPT-95877 Chest 2V Frontal and Lat - XRAY USE ONLY 09:00:14 CDT CPT-98167 Venipuncture Draw Fee 13:33:02 CDT CPT-06881 Bone Density 09:37:49 BACK MAKER CPT-57911 Fluzone High Dose 17:20:42 CDT CPT-37318 Prevnar 13 17:20:42 CDT CPT-04690 Administration 2+ single or combination vaccines inc oral 17:20:42 CDT CPT-87886 Administration single or combination vaccine inc oral 17 :20:42 CDT CPT-09932 Hand comp min 3V 09:24:38 CDT CPT-14752 Venipuncture Draw Fee 08:07:29 BACK MAKER CPT-58187 Venipuncture Draw Fee 09:02:51 BACK MAKER CPT-26837 Venipuncture Draw Fee 12:45:08 BACK MAKER CPT-87765 Venipuncture Draw Fee 09:25:31 CDT CPT-G0008 Administration of Influenza Virus Vaccine 14:41:29 CDT CPT-00305 Fluzone High-Dose Intramuscular Suspension 14:41:29 CDT CPT-Cryo Cryotherapy 11:48:20 CDT CPT-81944 EKG Trac and Interp 09:21:58 CDT CPT-20240 Chest 2V Frontal and Lat 09:21:58 CDT CPT-Cryo Cryotherapy 10:54:51 BACK MAKER CPT-35829 Administration 2+ single or combination vaccines inc oral 10:42:19 CDT CPT-02055 Administration single or combination vaccine inc oral 10 :42:19 CDT CPT-52317 Pneumovax 10:42:19 CDT CPT-12937 Influenza High Dose age 65+ 10:42:19 CDT CPT-78758 Administration single or combination vaccine inc oral 13 :18:54 CDT CPT-43820 Influenza High Dose age 65+ 13:18:54 CDT CPT-63396 Venipuncture Draw Fee 11:53:16 CDT CPT-32335 LS spine comp w obliq 11:03:13 CDT CPT-Cryo Cryotherapy 08:27:16 BACK MAKER CPT-95161 Administration single or combination vaccine inc oral 10 :56:34 CDT CPT-65221 Influenza High Dose age 65+ 10:56:34 CDT
--- OUTSIDE RECORDS SUMMARY | 2018-03-31 17:55 | XMS REPORT | Clinical Summary ---
Author Author Admin, RAFFI Organization [facility] Address Unknown Phone Unavailable Allergies, Adverse Reactions, [...] MD Bronchitis, acute ICD-466.0 Kerry Castillo MD ABDOMINAL PAIN RIGHT LOWER QUADRANT ICD-789.03 Kerry Castillo MD Medication List Medication Instructions Start Date Stop Date Generic Name NDC Status Provider Patient Instruction FLONASE 50 MCG/ACT SUSP 2 puffs in each nostril daily FLUTICASONE PROPIONATE 38805061086 Active Simon Castillo MD Active CLOTRIMAZOLE 1 % EXT CREA Apply to affected area of feet twice daily PRN Rash CLOTRIMAZOLE 66406858698 Active Simon Castillo MD Active SYMBICORT 160-4.5 MCG/ACT AERO 2 puff BID BUDESONIDE- FORMOTEROL FUMARATE 63441049756 Active Simon Castillo MD Active PREDNISONE 20 MG TAB 2 tabs daily for 3 days, 1 tab daily for 3 days, 1/2 tab daily for 2 days PREDNISONE 86824297116 No Longer Active Simon Castillo MD Active AZITHROMYCIN 250 MG TABS 2 po qd x 1 day, then 1 po qd x 4 days AZITHROMYCIN 78705857930 No Longer Active Simon Castillo MD Active LISINOPRIL 10 MG TABS 1 tablet by mouth daily LISINOPRIL 39976407675 Active Simon Castillo MD Active GLIMEPIRIDE 1 MG TABS 1 po q a.m. GLIMEPIRIDE 92335177825 Active Simon Castillo MD Active CARVEDILOL 6.25 MG TABS 1 po BID CARVEDILOL 60548041346 Active Simon Castillo MD Active LISINOPRIL-HYDROCHLOROTHIAZIDE 20-12.5 MG TABS 1/2 tab by mouth daily LISINOPRIL-HYDROCHLOROTHIAZIDE 53012363876 No Longer Active Simon Castillo MD Active PREDNISONE 5 MG TABS 1 po qod PREDNISONE 12590898385 Active Simon Castillo MD Active TRAMADOL HCL 50 MG TABS 1-2 tablets every 6 hours as needed for pain TRAMADOL HCL 23090085974 Active Simon Castillo MD Active PREDNISONE 5 MG TAB Take one po qod PREDNISONE 00814867800 No Longer Active Simon Castillo MD Active GLYBURIDE 5 MG TAB Take one by mouth daily GLYBURIDE 07419347094 No Longer Active Simon Castillo MD Active LEVAQUIN 750 MG TABS 1 po qod x 5 doses LEVOFLOXACIN 24577051704 No Longer Active Simon Castillo MD Active CETIRIZINE HCL 10 MG TABS 1 po qd as needed for allergies CETIRIZINE HCL 77595750665 No Longer Active Simon Castillo MD Active FISH OIL 1000 MG CPDR 1 pill by mouth twice daily for cholesterol OMEGA -3 FATTY ACIDS 91409472567 Active Simon Castillo MD Active BILBERRY CAPS 1 tab daily BILBERRY (VACCINIUM MYRTILLUS) CAPS 71431840805 Active Simon Castillo MD Active ATENOLOL 50 MG TABS Take one by mouth daily ATENOLOL 11891912287 No Longer Active Simon Castillo MD Active FLONASE 50 MCG/ACT SUSP 2 puffs in each nostril daily FLUTICASONE PROPIONATE 31468703079 No Longer Active Simon Castillo MD Active GLYBURIDE 5 MG TAB Take one by mouth daily GLYBURIDE 93170883077 No Longer Active Simon Castillo MD Active SYMBICORT 80-4.5 MCG/ACT AERO 2 puffs twice a day BUDESONIDE-FORMOTEROL FUMARATE 08681809795 No Longer Active Simon Castillo MD Active PREDNISONE 20 MG TAB 2 tabs daily for 4 days, 1 tab daily for 4 days, 1/2 tab daily for 4 days PREDNISONE 75895568700 No Longer Active Simon Castillo MD Active AMOXICILLIN 500 MG CAPS 2 po BID x 10 days AMOXICILLIN 43916883693 No Longer Active Simon Castillo MD Active METFORMIN HCL 1000 MG TABS 1 by mounth twice a day METFORMIN HCL 98845082213 No Longer Active Simon Castillo MD Active LUTEIN-ZEAXANTHIN 6-1 MG TABS Take 2 by mouth daily LUTEIN-ZEAXANTHIN 72673306340 Active Simon Castillo MD Active IBUPROFEN 800 MG TABS Take 1 tab every 6 hrs prn IBUPROFEN 45250693285 No Longer Active Simon Castillo MD Active GLYBURIDE 2.5 MG TABS Take one by mouth daily GLYBURIDE 13775361751 No Longer Active Simon Castillo MD Active LANCETS MISC 2 qd LANCETS 14589654587 Active Pamela Conde Active ACACIA CONTOUR TEST STRP Use with testing twice daily GLUCOSE BLOOD 43599078344 Active Pamela Conde Active ACACIA ASPIRIN 325 MG TABS Take one by mouth daily ASPIRIN 25354621556 Active Pamela Conde Active GLYBURIDE 2.5 MG TABS Take one by mouth daily GLYBURIDE 2.5 MG TABS 054808 GLYBURIDE Inactive PREDNISONE 20 MG TAB 2 tabs daily for 4 days, 1 tab daily for 4 days, 1/2 tab daily for 4 days PREDNISONE 20 MG TAB 932516 PREDNISONE Inactive SYMBICORT 80-4.5 MCG/ACT AERO 2 puffs twice a day SYMBICORT 80-4.5 MCG/ACT AERO BUDESONIDE-FORMOTEROL FUMARATE Inactive FLONASE 50 MCG/ACT SUSP 2 puffs in each nostril daily FLONASE 50 MCG/ACT SUSP 434457 FLUTICASONE PROPIONATE Inactive ATENOLOL 50 MG TABS Take one by mouth daily ATENOLOL 50 MG TABS 967543 ATENOLOL Inactive CETIRIZINE HCL 10 MG TABS 1 po qd as needed for allergies CETIRIZINE HCL 10 MG TABS 6520460 CETIRIZINE HCL Inactive LEVAQUIN 750 MG TABS 1 po qod x 5 doses LEVAQUIN 750 MG TABS 727469 LEVOFLOXACIN Inactive GLYBURIDE 5 MG TAB Take one by mouth daily GLYBURIDE 5 MG TAB 944641 GLYBURIDE Inactive PREDNISONE 5 MG TAB Take one po qod PREDNISONE 5 MG TAB 132721 PREDNISONE Inactive AMOXICILLIN 500 MG CAPS 2 po BID x 10 days AMOXICILLIN 500 MG CAPS 275127 AMOXICILLIN Inactive GLYBURIDE 5 MG TAB Take one by mouth daily GLYBURIDE 5 MG TAB 266384 GLYBURIDE Inactive AZITHROMYCIN 250 MG TABS 2 po qd x 1 day, then 1 po qd x 4 days AZITHROMYCIN 250 MG TABS 8560546 AZITHROMYCIN Inactive PREDNISONE 20 MG TAB 2 tabs daily for 3 days, 1 tab daily for 3 days, 1/2 tab daily for 2 days PREDNISONE 20 MG TAB 066248 PREDNISONE Inactive Immunizations Vaccine Administration Date Value [...] Panel - Chemistry sodium, serum 137 mmol/L 242-827 9864/10/14 potassium, serum 5.6 mmol/L 3.5-5.2 chloride, serum 103 mmol/L 98-107 carbon dioxide, venous blood 24.9 mmol/L 21.0-32.0 blood glucose 200 mg/dL 65-110 urea nitrogen, blood 43 mg/dL 7-18 creatinine, serum 2.60 mg/dL 0.60-1.30 calcium, serum 9.1 mg/dL 8.5-10.1 chloride, serum 105 mmol/L 98-107 carbon dioxide, venous blood 22.2 mmol/L 21.0-32.0 blood glucose 156 mg/dL 65-110 urea nitrogen, blood 49 mg/dL 7-18 creatinine, serum 2.30 mg/dL 0.60-1.30 calcium, serum 9.2 mg/dL 8.5-10.1 sodium, serum 140 mmol/L 622-879 1442/12/12 potassium, serum 5.5 mmol/L 3.5-5.2 chloride, serum 104 mmol/L 98-107 carbon dioxide, venous blood 24.8 mmol/L 21.0-32.0 blood glucose 174 mg/dL 65-110 urea nitrogen, blood 40 mg/dL 7-18 creatinine, serum 2.50 mg/dL 0.60-1.30 calcium, serum 8.9 mg/dL 8.5-10.1 sodium, serum 139 mmol/L 397-329 1795/11/13 potassium, serum 5.8 mmol/L 3.5-5.2 Lab Report: CBC, Renal Panel - Hematology red blood cell distribution width 15.1 % 11.6-14.8 platelet count 241 10^3/MM^3 10*3/mm3 012-641 6786/12/12 erythrocyte (RBC) count 4.82 10^6/MM^3 10*6/mm3 4.69-6.13 hemoglobin, blood 14.5 g/dL 13.5-17.5 hematocrit, blood 43.6 % 41.0-53.0 mean corpuscular volume, RBC 90 fL 80-97 mean corpuscular hemoglobin, RBC 30.0 pg 27.0-31.2 mean corpuscular hemoglobin concentration, RBC 32.8 G/DL % 31.8- 35.4 mean corpuscular hemoglobin, RBC 29.5 pg 27.0-31.2 leukocyte count, blood 9.7 10^3/MM^3 10*3/mm3 4.6-10.2 erythrocyte (RBC) count 4.79 10^6/MM^3 10*6/mm3 4.69-6.13 hemoglobin, blood 14.1 g/dL 13.5-17.5 hematocrit, blood 43.0 % 41.0-53.0 leukocyte count, blood 11.5 10^3/MM^3 10*3/mm3 4.6-10.2 mean corpuscular hemoglobin concentration, RBC 33.2 G/DL % 31.8- 35.4 red blood cell distribution width 14.6 % 11.6-14.8 platelet count 217 10^3/MM^3 10*3/mm3 556-966 5039/10/14 leukocyte count, blood 9.2 10^3/MM^3 10*3/mm3 4.6-10.2 erythrocyte (RBC) count 4.67 10^6/MM^3 10*6/mm3 4.69-6.13 hemoglobin, blood 13.9 g/dL 13.5-17.5 hematocrit, blood 42.4 % 41.0-53.0 mean corpuscular volume, RBC 91 fL 80-97 mean corpuscular hemoglobin, RBC 29.7 pg 27.0-31.2 mean corpuscular hemoglobin concentration, RBC 32.8 G/DL % 31.8- 35.4 red blood cell distribution width 14.7 % 11.6-14.8 platelet count 214 10^3/MM^3 10*3/mm3 764-384 3955/11/13 mean corpuscular volume, RBC 90 fL 80-97 Lab Report: Comp. Metabolic Panel, HGBA1C - Chemistry sodium, serum 139 mmol/L 830-846 9857/07/09 potassium, serum 5.4 mmol/L 3.5-5.2 chloride, serum [...] Basic Metabolic Panel - Chemistry chloride, serum 104 mmol/L 98-107 carbon dioxide, venous blood 20.4 mmol/L 21.0-32.0 creatinine, serum 2.60 mg/dL 0.60-1.30 urea nitrogen, blood 46 mg/dL 7-18 calcium, serum 8.7 mg/dL 8.5-10.1 blood glucose 173 mg/dL 65-110 potassium, serum 5.3 mmol/L 3.5-5.2 sodium, serum 137 mmol/L 892-469 6761/08/21 hemoglobin A1C, blood, as % of total hemoglobin 6.9 % 4.3-6.0 Lab Report: Prostatic Specific Ag - Chemistry prostate specific antigen 1.52 ng/mL 0.00-4.00 Lab Report: Renal Panel - Chemistry sodium, serum 139 mmol/L 331-917 5059/10/21 potassium, serum 4.7 mmol/L 3.5-5.2 carbon dioxide, venous blood 26.1 mmol/L 21.0-32.0 blood glucose 148 mg/dL 65-110 urea nitrogen, blood 38 mg/dL 7-18 creatinine, serum 2.60 mg/dL 0.60-1.30 calcium, serum 8.6 mg/dL 8.5-10.1 sodium, serum 140 mmol/L 616-203 7106/11/17 potassium, serum 5.0 mmol/L 3.5-5.2 chloride, serum 104 mmol/L 98-107 carbon dioxide, venous blood 24.8 mmol/L 21.0-32.0 blood glucose 146 mg/dL 65-110 urea nitrogen, blood 46 mg/dL 7-18 creatinine, serum 2.60 mg/dL 0.60-1.30 calcium, serum 9.2 mg/dL 8.5-10.1 chloride, serum 104 mmol/L 98-107 Encounters Code Encounter Date Provider Facility CPT-03605 Level 4 Est. Patient 08:47:25 CDT Simon Castillo MD [facility] CPT-66063 Level 4 Est. Patient 10:17:25 CDT Simon Castillo MD [facility] CPT-89406 Level 4 Est. Patient 10:10:09 GENERAL MATCHER Simon Castillo MD [facility] CPT-27374 Level 4 Est. Patient 11:48:19 CDT Simon Castillo MD [facility] CPT-57755 Level 4 Est. Patient 08:59:29 CDT Simon Castillo MD [facility] CPT-26439 Level 4 Est. Patient 10:52:51 GENERAL MATCHER Simon Castillo MD [facility] CPT-72541 Level 4 Est. Patient 11:50:30 CDT Simon Castillo MD [facility] CPT-92086 Level 4 Est. Patient 09:54:46 CDT Simon Castillo MD [facility] CPT-87878 Level 3 Est. Patient 11:10:14 CDT Simon Castillo MD [facility] CPT-73521 Level 4 Est. Patient 09:44:02 CDT Simon Castillo MD [facility] CPT-07404 Level 3 Est. Patient 09:27:48 CDT Simon Castillo MD [facility] CPT-87509 Level 3 Est. Patient 09:58:06 GENERAL MATCHER Simon Castillo MD [facility] CPT-11725 Level 3 Est. Patient 09:51:35 CDT Simon Castillo MD [facility] Procedures Code Procedure Name Date Entry Date Standard Description CPT-21774 Venipuncture Draw Fee 08:07:29 GENERAL MATCHER CPT-48130 Venipuncture Draw Fee 09:02:51 GENERAL MATCHER CPT-30981 Venipuncture Draw Fee 12:45:08 GENERAL MATCHER CPT-86155 Venipuncture Draw Fee 09:25:31 CDT CPT-G0008 Administration of Influenza Virus Vaccine 14:41:29 CDT CPT-28142 Fluzone High-Dose Intramuscular Suspension 14:41:29 CDT CPT-Cryo Cryotherapy 11:48:20 CDT CPT-99518 EKG Trac and Interp 09:21:58 CDT CPT-19555 Chest 2V Frontal and Lat 09:21:58 CDT CPT-Cryo Cryotherapy 10:54:51 GENERAL MATCHER CPT-08608 Administration 2+ single or combination vaccines inc oral 10:42:19 CDT CPT-43672 Administration single or combination vaccine inc oral 10 :42:19 CDT CPT-39843 Pneumovax 10:42:19 CDT CPT-68042 Influenza High Dose age 65+ 10:42:19 CDT CPT-99854 Administration single or combination vaccine inc oral 13 :18:54 CDT CPT-75648 Influenza High Dose age 65+ 13:18:54 CDT CPT-91408 Venipuncture Draw Fee 11:53:16 CDT CPT-70019 LS spine comp w obliq 11:03:13 CDT CPT-Cryo Cryotherapy 08:27:16 GENERAL MATCHER CPT-38690 Administration single or combination vaccine inc oral 10 :56:34 CDT CPT-82008 Influenza High Dose age 65+ 10:56:34 CDT
--- OUTSIDE RECORDS SUMMARY | 2018-03-31 17:58 | XMS REPORT | Clinical Summary ---
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 Inactive Simon Castillo MD Pharyngitis ICD-462 Inactive Simon Castillo MD Dyspnea ICD-786.09 Inactive Simon Castillo MD 2016 Peripheral edema ICD-782.3 Inactive Simon Casitllo MD Pneumonia, right lower lobe ICD-486 Inactive Simon Castillo MD Sinusitis, acute ICD-461.9 Inactive Simon Castillo MD Dyspnea ICD-786.09 Inactive Simon Castillo MD 2016 Medication List Medication Instructions Start Date Stop Date Generic Name NDC Status Provider Patient Instruction BUMETANIDE 0.5 MG ORAL TABS 1 po qd BUMETANIDE 70003530122 Active Simon Castillo MD Active AUGMENTIN 875-125 MG ORAL TABS 1 po BID x 10 days AMOXICILLIN-POT CLAVULANATE 20335022244 No Longer Active Simon Castillo MD Active PIOGLITAZONE HCL 30 MG ORAL TABS 1 po qd PIOGLITAZONE HCL 61989359400 Active Simon Castillo MD Active GLIMEPIRIDE 4 MG ORAL TABS 1 po BID GLIMEPIRIDE 47363308364 Active Simon Castillo MD Active ASPIRIN EC 81 MG ORAL TBEC 1 po qd ASPIRIN 24268324204 Active Simon Castillo MD Active CLOTRIMAZOLE 1 % EXT CREA Apply to affected area of feet twice daily PRN Rash CLOTRIMAZOLE 33969850364 No Longer Active Simon Castillo MD Active PREDNISONE 5 MG TAB 1 po BID PREDNISONE 12126473874 Active Simon Castillo MD Active FISH OIL 1000 MG CPDR 1 po BID OMEGA-3 FATTY ACIDS 19784385763 Active Simon Castillo MD Active LISINOPRIL 10 MG TABS 1 p qd LISINOPRIL 10017846220 Active Simon Castillo MD Active CLARITIN 10 MG TAB 1 tablet by mouth daily as needed for allergies LORATADINE 23059454798 No Longer Active Simon Castillo MD Active TRIAMCINOLONE ACETONIDE 0.1 % OINT Apply to affected areas TID for up to 2 weeks TRIAMCINOLONE ACETONIDE 47081981361 No Longer Active Simon Castillo MD Active LASIX 20 MG TAB 1 tablet by mouth daily x 2 days FUROSEMIDE 73374032715 No Longer Active Simon Castillo MD Active SULFASALAZINE 500 MG ORAL TBEC 2 tabs BID SULFASALAZINE 69287810403 No Longer Active Neto Oshea DO Active PREDNISONE 20 MG TAB 2 tabs daily for 3 days, 1 tab daily for 3 days, 1/2 tab daily for 2 days PREDNISONE 14992551490 No Longer Active Jillina Frazell FEEDLOT MANAGER Active PREDNISONE 20 MG TAB 1 tablet daily for airway inflammation 02/25 PREDNISONE 72322023514 No Longer Active Jillina Frazell FEEDLOT MANAGER Active AZITHROMYCIN 250 MG TABS 2 po qd x 1 day, then 1 po qd x 4 days AZITHROMYCIN 74724423797 No Longer Active Jillina Frazell FEEDLOT MANAGER Active HYDROCODONE-ACETAMINOPHEN 5-325 MG TABS 1 tab by mouth 8 hours as needed for pain HYDROCODONE-ACETAMINOPHEN 08779651278 Active Simon Castillo MD Active TRAMADOL HCL 50 MG TABS 1 po q6hr PRN Pain TRAMADOL HCL 93793624587 No Longer Active Simon Castillo MD Active PREDNISONE 5 MG TABS 1 po qod PREDNISONE 54965388765 No Longer Active Simon Castillo MD Active SYMBICORT 160-4.5 MCG/ACT AERO 2 puff BID BUDESONIDE- FORMOTEROL FUMARATE 49732359897 No Longer Active Simon Castillo MD Active FLONASE 50 MCG/ACT SUSP 2 puffs in each nostril daily FLUTICASONE PROPIONATE 23933718729 No Longer Active Simon Castillo MD Active PREDNISONE 20 MG TAB 2 tabs daily for 5 days, then 1 daily for 5 days PREDNISONE 88149680221 No Longer Active Simon Castillo MD Active PREDNISONE 20 MG TAB 2 tabs daily for 5 days, then 1 daily for 5 days, then 0.5 for 4 days PREDNISONE 81530475300 No Longer Active Simon Castillo MD Active PREDNISONE 20 MG TAB 2 tabs daily for 3 days, 1 tab daily for 3 days, 1/2 tab daily for 2 days PREDNISONE 62400520880 No Longer Active Simon Castillo MD Active AZITHROMYCIN 250 MG TABS 2 po qd x 1 day, then 1 po qd x 4 days AZITHROMYCIN 92316688636 No Longer Active Simon Castillo MD Active CARVEDILOL 6.25 MG TABS 1 po BID CARVEDILOL 10163363287 Active Simon Castillo MD Active LISINOPRIL-HYDROCHLOROTHIAZIDE 20-12.5 MG TABS 1/2 tab by mouth daily LISINOPRIL-HYDROCHLOROTHIAZIDE 45901792381 No Longer Active Simon Castillo MD Active TRAMADOL HCL 50 MG TABS 1-2 tablets every 6 hours as needed for pain TRAMADOL HCL 22744673992 Active Giles Tatum APRN Active PREDNISONE 5 MG TAB Take one po qod PREDNISONE 59155113308 No Longer Active Simon Castillo MD Active GLYBURIDE 5 MG TAB Take one by mouth daily GLYBURIDE 23816921166 No Longer Active Simon Castillo MD Active LEVAQUIN 750 MG TABS 1 po qod x 5 doses LEVOFLOXACIN 61523878775 No Longer Active Simon Castillo MD Active CETIRIZINE HCL 10 MG TABS 1 po qd as needed for allergies CETIRIZINE HCL 67886989422 No Longer Active Simon Castillo MD Active BILBERRY CAPS 1 tab daily BILBERRY (VACCINIUM MYRTILLUS) CAPS 24546521638 Active Simon Castillo MD Active ATENOLOL 50 MG TABS Take one by mouth daily ATENOLOL 71918870032 No Longer Active Simon Castillo MD Active FLONASE 50 MCG/ACT SUSP 2 puffs in each nostril daily FLUTICASONE PROPIONATE 98868211357 No Longer Active Simon Castillo MD Active GLYBURIDE 5 MG TAB Take one by mouth daily GLYBURIDE 25337147886 No Longer Active Simon Castillo MD Active SYMBICORT 80-4.5 MCG/ACT AERO 2 puffs twice a day BUDESONIDE-FORMOTEROL FUMARATE 59403955024 No Longer Active Simon Castillo MD Active PREDNISONE 20 MG TAB 2 tabs daily for 4 days, 1 tab daily for 4 days, 1/2 tab daily for 4 days PREDNISONE 72947818494 No Longer Active Simon Castillo MD Active AMOXICILLIN 500 MG CAPS 2 po BID x 10 days AMOXICILLIN 71630326205 No Longer Active Simon Castillo MD Active METFORMIN HCL 1000 MG TABS 1 by [facility] twice a day METFORMIN HCL 24748771891 No Longer Active Simon Castillo MD Active LUTEIN-ZEAXANTHIN 6-1 MG TABS Take 2 by mouth daily LUTEIN-ZEAXANTHIN 18415934900 Active Simon Castillo MD Active IBUPROFEN 800 MG TABS Take 1 tab every 6 hrs prn IBUPROFEN 00356010800 No Longer Active Simon Castillo MD Active GLYBURIDE 2.5 MG TABS Take one by mouth daily GLYBURIDE 66223223695 No Longer Active Simon Castillo MD Active LANCETS MISC 2 qd LANCETS 10276789388 Active Pamela Conde Active ACACIA CONTOUR TEST STRP Use with testing twice daily GLUCOSE BLOOD 20558981952 Active Simon Castillo MD Active GLYBURIDE 2.5 MG TABS Take one by mouth daily GLYBURIDE 2.5 MG TABS 370779 GLYBURIDE Inactive PREDNISONE 20 MG TAB 2 tabs daily for 4 days, 1 tab daily for 4 days, 1/2 tab daily for 4 days PREDNISONE 20 MG TAB 443502 PREDNISONE Inactive SYMBICORT 80-4.5 MCG/ACT AERO 2 puffs twice a day SYMBICORT 80-4.5 MCG/ACT AERO BUDESONIDE-FORMOTEROL FUMARATE Inactive FLONASE 50 MCG/ACT SUSP 2 puffs in each nostril daily FLONASE 50 MCG/ACT SUSP 2711962 FLUTICASONE PROPIONATE Inactive ATENOLOL 50 MG TABS Take one by mouth daily ATENOLOL 50 MG TABS 275034 ATENOLOL Inactive CETIRIZINE HCL 10 MG TABS 1 po qd as needed for allergies CETIRIZINE HCL 10 MG TABS 1380593 CETIRIZINE HCL Inactive LEVAQUIN 750 MG TABS 1 po qod x 5 doses LEVAQUIN 750 MG TABS 654847 LEVOFLOXACIN Inactive GLYBURIDE 5 MG TAB Take one by mouth daily GLYBURIDE 5 MG TAB 763849 GLYBURIDE Inactive PREDNISONE 5 MG TAB Take one po qod PREDNISONE 5 MG TAB 751325 PREDNISONE Inactive PREDNISONE 20 MG TAB 2 tabs daily for 5 days, then 1 daily for 5 days PREDNISONE 20 MG TAB 133906 PREDNISONE Inactive FLONASE 50 MCG/ACT SUSP 2 puffs in each nostril daily FLONASE 50 MCG/ACT SUSP 5763666 FLUTICASONE PROPIONATE Inactive SYMBICORT 160-4.5 MCG/ACT AERO 2 puff BID SYMBICORT 160-4.5 MCG/ACT AERO BUDESONIDE-FORMOTEROL FUMARATE Inactive PREDNISONE 5 MG TABS 1 po qod PREDNISONE 5 MG TABS 790282 PREDNISONE Inactive PREDNISONE 20 MG TAB 1 tablet daily for airway inflammation 02/25 PREDNISONE 20 MG TAB 404524 PREDNISONE Inactive SULFASALAZINE 500 MG ORAL TBEC 2 tabs BID SULFASALAZINE 500 MG ORAL TBEC 548762 SULFASALAZINE Inactive LASIX 20 MG TAB 1 tablet by mouth daily x 2 days LASIX 20 MG TAB 645315 FUROSEMIDE Inactive CLARITIN 10 MG TAB 1 tablet by mouth daily as needed for allergies CLARITIN 10 MG TAB 323853 LORATADINE Inactive CLOTRIMAZOLE 1 % EXT CREA Apply to affected area of feet twice daily PRN Rash CLOTRIMAZOLE 1 % EXT CREA 162817 CLOTRIMAZOLE Inactive AMOXICILLIN 500 MG CAPS 2 po BID x 10 days AMOXICILLIN 500 MG CAPS 550801 AMOXICILLIN Inactive GLYBURIDE 5 MG TAB Take one by mouth daily GLYBURIDE 5 MG TAB 149946 GLYBURIDE Inactive AZITHROMYCIN 250 MG TABS 2 po qd x 1 day, then 1 po qd x 4 days AZITHROMYCIN 250 MG TABS 206080 AZITHROMYCIN Inactive PREDNISONE 20 MG TAB 2 tabs daily for 3 days, 1 tab daily for 3 days, 1/2 tab daily for 2 days PREDNISONE 20 MG TAB 546783 PREDNISONE Inactive PREDNISONE 20 MG TAB 2 tabs daily for 5 days, then 1 daily for 5 days, then 0.5 for 4 days PREDNISONE 20 MG TAB 000201 PREDNISONE Inactive AZITHROMYCIN 250 MG TABS 2 po qd x 1 day, then 1 po qd x 4 days AZITHROMYCIN 250 MG TABS 953407 AZITHROMYCIN Inactive PREDNISONE 20 MG TAB 2 tabs daily for 3 days, 1 tab daily for 3 days, 1/2 tab daily for 2 days PREDNISONE 20 MG TAB 112499 PREDNISONE Inactive TRIAMCINOLONE ACETONIDE 0.1 % OINT Apply to affected areas TID for up to 2 weeks TRIAMCINOLONE ACETONIDE 0.1 % OINT 7237635 TRIAMCINOLONE ACETONIDE Inactive AUGMENTIN 875-125 MG ORAL TABS 1 po BID x 10 days AUGMENTIN 875-125 MG ORAL TABS 472089 AMOXICILLIN-POT CLAVULANATE Inactive Immunizations Vaccine Administration Date [...] Peptide - Chemistry sodium, serum 142 mmol/L 408-388 1231/07/18 potassium, serum 5.0 mmol/L 3.5-5.2 chloride, serum [...] Panel - Chemistry sodium, serum 140 mmol/L 891-069 0538/07/13 carbon dioxide, venous blood 23.7 mmol/L 21.0-32.0 [...] 7.8 % 4.3-6.0 Lab Report: [facility]id Panel, [facility], Comp. Metabolic Panel - Chemistry cholesterol, serum 126 mg/dL [phone]/02/07 triglyceride, serum, fasting 83 mg/dL 30-200 HDL cholesterol, serum 70 mg/dL 32-96 LDL cholesterol, serum 39 mg/dL 0-130 hemoglobin A1C, blood, as % of total hemoglobin 8.3 % 4.3-6.0 sodium, serum 141 mmol/L 577-802 6711/02/07 carbon dioxide, venous blood 26.0 mmol/L 21.0-32.0 [...] 0.00-1.00 Encounters Code Encounter Date Provider Facility CPT-14685 Level 4 Est. Patient 09:54:36 CDT Simon Castillo MD [facility] CPT-24918 Level 4 Est. Patient 08:48:38 CDT Simon Castillo MD [facility] CPT-67885 Level 4 Est. Patient 09:54:08 CDT Simon Castillo MD [facility] CPT-90086 Level 4 Est. Patient 16:11:23 CDT Simon Castillo MD [facility] CPT-03037 Level 4 Est. Patient 09:29:28 CO OP Simon Castillo [facility] CPT-69105 Level 3 Est. Patient 09:18:25 CDT Simon Castillo MD [facility] CPT-04619 Level 4 Est. Patient 11:51:23 CDT Simon Castillo MD [facility] CPT-33932 Level 4 Est. Patient 14:32:04 CDT Neto Oshea DO [facility] CPT-50529 Level 3 Est. Patient 08:41:43 CDT Giles Tatum [facility] CPT-84802 Level 3 Est. Patient 08:40:53 CDT Giles Tatum [facility] CPT-65282 Level 3 Est. Patient 08:36:52 CDT Giles Tatum [facility] CPT-76110 Level 3 Est. Patient 09:08:44 CDT Giles Tatum [facility] CPT-25786 Level 4 Est. Patient 09:17:32 CO OP Simon Castillo MD [facility] CPT-42371 Level 3 Est. Patient 11:22:22 CO OP Simon Castillo MD [facility] CPT-98231 Level 3 Est. Patient 09:02:14 CDT Simon Castillo MD [facility] CPT-48187 Level 4 Est. Patient 08:47:25 CDT Simon Castillo MD [facility] CPT-06543 Level 4 Est. Patient 10:17:25 CDT Simon Castillo MD [facility] CPT-49940 Level 4 Est. Patient 10:10:09 CO OP Simon Castillo MD [facility] CPT-93534 Level 4 Est. Patient 11:48:19 CDT Simon Castillo MD [facility] CPT-96568 Level 4 Est. Patient 08:59:29 CDT Simon Castillo MD [facility] CPT-64616 Level 4 Est. Patient 10:52:51 CO OP Simon Castillo MD [facility] CPT-78959 Level 4 Est. Patient 11:50:30 CDT Simon Castillo MD [facility] CPT-43516 Level 4 Est. Patient 09:54:46 CDT Simon Castillo MD [facility] CPT-76588 Level 3 Est. Patient 11:10:14 CDT Simon Castillo MD [facility] CPT-96972 Level 4 Est. Patient 09:44:02 CDT Simon Castillo MD [facility] CPT-97414 Level 3 Est. Patient 09:27:48 CDT Simon Castillo MD [facility] CPT-12343 Level 3 Est. Patient 09:58:06 CO OP Simon Castillo MD [facility] CPT-85149 Level 3 Est. Patient 09:51:35 CDT Simon Castillo MD [facility] Procedures Code Procedure Name Date Entry Date Standard Description CPT-Cryo Cryotherapy 09:54:37 CDT CPT-57272 First Vx - Ix admin for Medicare patients 09:13:10 CDT CPT-44217 Fluzone High-Dose Intramuscular Suspension 09:13:10 CDT CPT-G0439 Subsequent Annual Wellness Exam 09:41:17 CDT CPT-31256 Lipid - LAB USE ONLY 17:15:33 CDT CPT-85541 HGBA1C - LAB USE ONLY 17:15:33 CDT CPT-38657 CMP - LAB USE ONLY 17:15:33 CDT CPT-61883 Venipuncture Draw Fee 17:15:33 CDT CPT-[facility] Transitional Care Mgmt-High 11:01:28 CO OP CPT-62321 First Vx - Ix admin for Medicare patients 17:33:39 CDT CPT-26311 Fluzone High-Dose Intramuscular Suspension 17:33:39 CDT CPT-G0438 Initial Annual Wellness Exam 08:57:30 CDT CPT-69145 Chest 2V Frontal and Lat - XRAY USE ONLY 09:00:14 CDT CPT-53610 Venipuncture Draw Fee 13:33:02 CDT CPT-95692 Bone Density 09:37:49 CO OP CPT-07104 Fluzone High Dose 17:20:42 CDT CPT-01462 Prevnar 13 17:20:42 CDT CPT-38904 Administration 2+ single or combination vaccines inc oral 17:20:42 CDT CPT-30332 Administration single or combination vaccine inc oral 17 :20:42 CDT CPT-37690 Hand comp min 3V 09:24:38 CDT CPT-96313 Venipuncture Draw Fee 08:07:29 CO OP CPT-82337 Venipuncture Draw Fee 09:02:51 CO OP CPT-19534 Venipuncture Draw Fee 12:45:08 CO OP CPT-52001 Venipuncture Draw Fee 09:25:31 CDT CPT-G0008 Administration of Influenza Virus Vaccine 14:41:29 CDT CPT-66726 Fluzone High-Dose Intramuscular Suspension 14:41:29 CDT CPT-Cryo Cryotherapy 11:48:20 CDT CPT-58202 EKG Trac and Interp 09:21:58 CDT CPT-82726 Chest 2V Frontal and Lat 09:21:58 CDT CPT-Cryo Cryotherapy 10:54:51 CO OP CPT-86168 Administration 2+ single or combination vaccines inc oral 10:42:19 CDT CPT-25174 Administration single or combination vaccine inc oral 10 :42:19 CDT CPT-35966 Pneumovax 10:42:19 CDT CPT-15723 Influenza High Dose age 65+ 10:42:19 CDT CPT-03238 Administration single or combination vaccine inc oral 13 :18:54 CDT CPT-70588 Influenza High Dose age 65+ 13:18:54 CDT CPT-09364 Venipuncture Draw Fee 11:53:16 CDT CPT-33532 LS spine comp w obliq 11:03:13 CDT CPT-Cryo Cryotherapy 08:27:16 CO OP CPT-81096 Administration single or combination vaccine inc oral 10 :56:34 CDT CPT-94522 Influenza High Dose age 65+ 10:56:34 CDT
--- OUTSIDE RECORDS SUMMARY | 2018-03-31 18:03 | XMS REPORT | Clinical Summary ---
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 Kerry Castillo MD 2012 BENIGN PROSTATIC HYPERTROPHY, MILD, HX OF ICD-V13.89 Kerry Castillo MD Obesity ICD-278.00 Kerry Castillo MD 2013 Chest pain ICD-786.50 Kerry Castillo MD Cough ICD-786.2 Kerry Castillo MD Bronchitis, acute ICD-466.0 Kerry Castillo MD Tinea pedis ICD-110.4 Kerry Castillo MD Hand pain, bilateral ICD-729.5 Kerry Castillo MD Steroid use, technician terminal and repeater ICD-V58.65 Kerry Castillo MD Hand pain, bilateral [...] MG ORAL TABS 1 po BID GLIMEPIRIDE 50485466983 Active Simon Castillo MD Active ASPIRIN EC 81 MG ORAL TBEC 1 po qd ASPIRIN 02341061864 Active Simon Castillo MD Active CLOTRIMAZOLE 1 % EXT CREA Apply to affected area of feet twice daily PRN Rash CLOTRIMAZOLE 14159295376 No Longer Active Simon Castillo MD Active PREDNISONE 5 MG TAB 1 po BID PREDNISONE 81313356327 Active Simon Castillo MD Active FISH OIL 1000 MG CPDR 1 po BID OMEGA-3 FATTY ACIDS 78972734881 Active Simon Castillo MD Active LISINOPRIL 10 MG TABS 1 p qd LISINOPRIL 01666817290 Active Simon Castillo MD Active CLARITIN 10 MG TAB 1 tablet by mouth daily as needed for allergies LORATADINE 56169078508 No Longer Active Simon Castillo MD Active TRIAMCINOLONE ACETONIDE 0.1 % OINT Apply to affected areas TID for up to 2 weeks TRIAMCINOLONE ACETONIDE 86627985260 No Longer Active Simon Castillo MD Active LASIX 20 MG TAB 1 tablet by mouth daily x 2 days FUROSEMIDE 56019862913 No Longer Active Simon Castillo MD Active SULFASALAZINE 500 MG ORAL TBEC 2 tabs BID SULFASALAZINE 76248793748 No Longer Active Neto Oshea DO Active PREDNISONE 20 MG TAB 2 tabs daily for 3 days, 1 tab daily for 3 days, 1/2 tab daily for 2 days PREDNISONE 46312002245 No Longer Active Jillina Frazell SENIOR CONTRACT SPECIALIST Active PREDNISONE 20 MG TAB 1 tablet daily for airway inflammation 02/25 PREDNISONE 86960344228 No Longer Active Jillina Frazell SENIOR CONTRACT SPECIALIST Active AZITHROMYCIN 250 MG TABS 2 po qd x 1 day, then 1 po qd x 4 days AZITHROMYCIN 04103744522 No Longer Active Jillina Frazell SENIOR CONTRACT SPECIALIST Active HYDROCODONE-ACETAMINOPHEN 5-325 MG TABS 1 tab by mouth 8 hours as needed for pain HYDROCODONE-ACETAMINOPHEN 95340048201 Active Simon Castillo MD Active TRAMADOL HCL 50 MG TABS 1 po q6hr PRN Pain TRAMADOL HCL 70544797731 No Longer Active Simon Castillo MD Active PREDNISONE 5 MG TABS 1 po qod PREDNISONE 06531875446 No Longer Active Simon Castillo MD Active SYMBICORT 160-4.5 MCG/ACT AERO 2 puff BID BUDESONIDE- FORMOTEROL FUMARATE 58912997504 No Longer Active Simon Castillo MD Active FLONASE 50 MCG/ACT SUSP 2 puffs in each nostril daily FLUTICASONE PROPIONATE 14040007118 No Longer Active Simon Castillo MD Active PREDNISONE 20 MG TAB 2 tabs daily for 5 days, then 1 daily for 5 days PREDNISONE 15882215033 No Longer Active Simon Castillo MD Active PREDNISONE 20 MG TAB 2 tabs daily for 5 days, then 1 daily for 5 days, then 0.5 for 4 days PREDNISONE 67836089600 No Longer Active Simon Castillo MD Active PREDNISONE 20 MG TAB 2 tabs daily for 3 days, 1 tab daily for 3 days, 1/2 tab daily for 2 days PREDNISONE 03998256824 No Longer Active Simon Castillo MD Active AZITHROMYCIN 250 MG TABS 2 po qd x 1 day, then 1 po qd x 4 days AZITHROMYCIN 30110792987 No Longer Active Simon Castillo MD Active CARVEDILOL 6.25 MG TABS 1 po BID CARVEDILOL 97008802373 Active Simon Castillo MD Active LISINOPRIL-HYDROCHLOROTHIAZIDE 20-12.5 MG TABS 1/2 tab by mouth daily LISINOPRIL-HYDROCHLOROTHIAZIDE 09717074244 No Longer Active Simon Castillo MD Active TRAMADOL HCL 50 MG TABS 1-2 tablets every 6 hours as needed for pain TRAMADOL HCL 88113010188 Active Jillina Frazell SENIOR CONTRACT SPECIALIST Active PREDNISONE 5 MG TAB Take one po qod PREDNISONE 59777642381 No Longer Active Simon Castillo MD Active GLYBURIDE 5 MG TAB Take one by mouth daily GLYBURIDE 35985770919 No Longer Active Simon Castillo MD Active LEVAQUIN 750 MG TABS 1 po qod x 5 doses LEVOFLOXACIN 54017700046 No Longer Active Simon Castillo MD Active CETIRIZINE HCL 10 MG TABS 1 po qd as needed for allergies CETIRIZINE HCL 99875106519 No Longer Active Simon Castillo MD Active BILBERRY CAPS 1 tab daily BILBERRY (VACCINIUM MYRTILLUS) CAPS 51877757654 Active Simon Castillo MD Active ATENOLOL 50 MG TABS Take one by mouth daily ATENOLOL 04009520846 No Longer Active Simon Castillo MD Active FLONASE 50 MCG/ACT SUSP 2 puffs in each nostril daily FLUTICASONE PROPIONATE 27984336622 No Longer Active Simon Castillo MD Active GLYBURIDE 5 MG TAB Take one by mouth daily GLYBURIDE 28245518648 No Longer Active Simon Castillo MD Active SYMBICORT 80-4.5 MCG/ACT AERO 2 puffs twice a day BUDESONIDE-FORMOTEROL FUMARATE 80325989365 No Longer Active Simon Castillo MD Active PREDNISONE 20 MG TAB 2 tabs daily for 4 days, 1 tab daily for 4 days, 1/2 tab daily for 4 days PREDNISONE 67462664360 No Longer Active Simon Castillo MD Active AMOXICILLIN 500 MG CAPS 2 po BID x 10 days AMOXICILLIN 90918205916 No Longer Active Simon Castillo MD Active METFORMIN HCL 1000 MG TABS [address] [facility] twice a day METFORMIN HCL 03632721021 No Longer Active Simon Castillo MD Active LUTEIN-ZEAXANTHIN 6-1 MG TABS Take 2 by mouth daily LUTEIN-ZEAXANTHIN 89121084535 Active Simon Castillo MD Active IBUPROFEN 800 MG TABS Take 1 tab every 6 hrs prn IBUPROFEN 63431666445 No Longer Active Simon Castillo MD Active GLYBURIDE 2.5 MG TABS Take one by mouth daily GLYBURIDE 45063839784 No Longer Active Simon Castillo MD Active LANCETS MISC 2 qd LANCETS 27684911281 Active Pamela Conde Active ACACIA CONTOUR TEST STRP Use with testing twice daily GLUCOSE BLOOD 68644563920 Active Simon Castillo MD Active GLYBURIDE 2.5 MG TABS Take one by mouth daily GLYBURIDE 2.5 MG TABS 405199 GLYBURIDE Inactive PREDNISONE 20 MG TAB 2 tabs daily for 4 days, 1 tab daily for 4 days, 1/2 tab daily for 4 days PREDNISONE 20 MG TAB 713654 PREDNISONE Inactive SYMBICORT 80-4.5 MCG/ACT AERO 2 puffs twice a day SYMBICORT 80-4.5 MCG/ACT AERO BUDESONIDE-FORMOTEROL FUMARATE Inactive FLONASE 50 MCG/ACT SUSP 2 puffs in each nostril daily FLONASE 50 MCG/ACT SUSP FLUTICASONE PROPIONATE Inactive ATENOLOL 50 MG TABS Take one by mouth daily ATENOLOL 50 MG TABS 035329 ATENOLOL Inactive CETIRIZINE HCL 10 MG TABS 1 po qd as needed for allergies CETIRIZINE HCL 10 MG TABS 8152646 CETIRIZINE HCL Inactive LEVAQUIN 750 MG TABS 1 po qod x 5 doses LEVAQUIN 750 MG TABS 504499 LEVOFLOXACIN Inactive GLYBURIDE 5 MG TAB Take one by mouth daily GLYBURIDE 5 MG TAB 274718 GLYBURIDE Inactive PREDNISONE 5 MG TAB Take one po qod PREDNISONE 5 MG TAB 475817 PREDNISONE Inactive PREDNISONE 20 MG TAB 2 tabs daily for 5 days, then 1 daily for 5 days PREDNISONE 20 MG TAB 691482 PREDNISONE Inactive FLONASE 50 MCG/ACT SUSP 2 puffs in each nostril daily FLONASE 50 MCG/ACT SUSP FLUTICASONE PROPIONATE Inactive SYMBICORT 160-4.5 MCG/ACT AERO 2 puff BID SYMBICORT 160-4.5 MCG/ACT AERO BUDESONIDE-FORMOTEROL FUMARATE Inactive PREDNISONE 5 MG TABS 1 po qod PREDNISONE 5 MG TABS 997614 PREDNISONE Inactive PREDNISONE 20 MG TAB 1 tablet daily for airway inflammation 02/25 PREDNISONE 20 MG TAB 419595 PREDNISONE Inactive SULFASALAZINE 500 MG ORAL TBEC 2 tabs BID SULFASALAZINE 500 MG ORAL TBEC 181523 SULFASALAZINE Inactive LASIX 20 MG TAB 1 tablet by mouth daily x 2 days LASIX 20 MG TAB 372445 FUROSEMIDE Inactive CLARITIN 10 MG TAB 1 tablet by mouth daily as needed for allergies CLARITIN 10 MG TAB 799347 LORATADINE Inactive CLOTRIMAZOLE 1 % EXT CREA Apply to affected area of feet twice daily PRN Rash CLOTRIMAZOLE 1 % EXT CREA 533624 CLOTRIMAZOLE Inactive AMOXICILLIN 500 MG CAPS 2 po BID x 10 days AMOXICILLIN 500 MG CAPS 985165 AMOXICILLIN Inactive GLYBURIDE 5 MG TAB Take one by mouth daily GLYBURIDE 5 MG TAB 979994 GLYBURIDE Inactive AZITHROMYCIN 250 MG TABS 2 po qd x 1 day, then 1 po qd x 4 days AZITHROMYCIN 250 MG TABS 7795961 AZITHROMYCIN Inactive PREDNISONE 20 MG TAB 2 tabs daily for 3 days, 1 tab daily for 3 days, 1/2 tab daily for 2 days PREDNISONE 20 MG TAB 600280 PREDNISONE Inactive PREDNISONE 20 MG TAB 2 tabs daily for 5 days, then 1 daily for 5 days, then 0.5 for 4 days PREDNISONE 20 MG TAB 343182 PREDNISONE Inactive AZITHROMYCIN 250 MG TABS 2 po qd x 1 day, then 1 po qd x 4 days AZITHROMYCIN 250 MG TABS 3162420 AZITHROMYCIN Inactive PREDNISONE 20 MG TAB 2 tabs daily for 3 days, 1 tab daily for 3 days, 1/2 tab daily for 2 days PREDNISONE 20 MG TAB 595003 PREDNISONE Inactive TRIAMCINOLONE ACETONIDE 0.1 % OINT Apply to affected areas TID for up to 2 weeks TRIAMCINOLONE ACETONIDE 0.1 % OINT 8445895 TRIAMCINOLONE ACETONIDE Inactive Immunizations Vaccine Administration Date [...] Panel - Chemistry sodium, serum 137 mmol/L 398-098 0183/06/06 carbon dioxide, venous blood 24.9 mmol/L 21.0-32.0 [...] Panel - Chemistry cholesterol, serum 126 mg/dL 200-899 7722/02/07 triglyceride, serum, fasting 83 mg/dL 30-200 HDL cholesterol, serum 70 mg/dL 32-96 LDL cholesterol, serum 39 mg/dL 0-130 hemoglobin A1C, blood, as % of total hemoglobin 8.3 % 4.3-6.0 sodium, serum 141 mmol/L 757-535 9418/02/07 carbon dioxide, venous blood 26.0 mmol/L 21.0-32.0 [...] 2.6-7.2 Encounters Code Encounter Date Provider Facility CPT-67639 Level 4 Est. Patient 16:11:23 CDT Simon Castillo MD [facility] CPT-05434 Level 4 Est. Patient 09:29:28 TOURIST INFORMATION ASSISTANT Simon Castillo MD [facility] CPT-72493 Level 3 Est. Patient 09:18:25 CDT Simon Castillo MD [facility] CPT-03256 Level 4 Est. Patient 11:51:23 CDT Simon Castillo MD [facility] CPT-25629 Level 4 Est. Patient 14:32:04 CDT Neto Oshea DO [facility] CPT-80201 Level 3 Est. Patient 08:41:43 CDT [facility] CPT-31697 Level 3 Est. Patient 08:40:53 CDT [facility] CPT-69063 Level 3 Est. Patient 08:36:52 CDT [facility] CPT-36880 Level 3 Est. Patient 09:08:44 CDT [facility] CPT-06255 Level 4 Est. Patient 09:17:32 TOURIST INFORMATION ASSISTANT Simon Castillo MD [facility] CPT-25017 Level 3 Est. Patient 11:22:22 TOURIST INFORMATION ASSISTANT Simon Castillo MD [facility] CPT-61261 Level 3 Est. Patient 09:02:14 CDT Simon Castillo MD [facility] CPT-86950 Level 4 Est. Patient 08:47:25 CDT Simon Castillo MD [facility] CPT-65314 Level 4 Est. Patient 10:17:25 CDT Simon Castillo MD [facility] CPT-31867 Level 4 Est. Patient 10:10:09 TOURIST INFORMATION ASSISTANT Simon Castillo MD [facility] CPT-64294 Level 4 Est. Patient 11:48:19 CDT Simon Castillo MD [facility] CPT-32642 Level 4 Est. Patient 08:59:29 CDT Simon Castillo MD [facility] CPT-84100 Level 4 Est. Patient 10:52:51 TOURIST INFORMATION ASSISTANT Simon Castillo MD [facility] CPT-52590 Level 4 Est. Patient 11:50:30 CDT Simon Castillo MD [facility] CPT-16496 Level 4 Est. Patient 09:54:46 CDT Simon Castillo MD [facility] CPT-54474 Level 3 Est. Patient 11:10:14 CDT Simon Castillo MD [facility] CPT-25458 Level 4 Est. Patient 09:44:02 CDT Simon Castillo MD [facility] CPT-27369 Level 3 Est. Patient 09:27:48 CDT Simon Castillo MD [facility] CPT-89421 Level 3 Est. Patient 09:58:06 TOURIST INFORMATION ASSISTANT Simon Castillo MD [facility] CPT-78981 Level 3 Est. Patient 09:51:35 CDT Simon Castillo MD [facility] Procedures Code Procedure Name Date Entry Date Standard Description CPT-95477 Lipid - LAB USE ONLY 17:15:33 CDT CPT-58911 HGBA1C - LAB USE ONLY 17:15:33 CDT CPT-92121 CMP - LAB USE ONLY 17:15:33 CDT CPT-30321 Venipuncture Draw Fee 17:15:33 CDT CPT-[facility] Transitional Care Mgmt-High 11:01:28 TOURIST INFORMATION ASSISTANT CPT-42641 First Vx - Ix admin for Medicare patients 17:33:39 CDT CPT-62833 Fluzone High-Dose Intramuscular Suspension 17:33:39 CDT CPT-G0438 Initial Annual Wellness Exam 08:57:30 CDT CPT-89079 Chest 2V Frontal and Lat - XRAY USE ONLY 09:00:14 CDT CPT-45626 Venipuncture Draw Fee 13:33:02 CDT CPT-85808 Bone Density 09:37:49 TOURIST INFORMATION ASSISTANT CPT-22091 Fluzone High Dose 17:20:42 CDT CPT-63908 Prevnar 13 17:20:42 CDT CPT-42909 Administration 2+ single or combination vaccines inc oral 17:20:42 CDT CPT-85026 Administration single or combination vaccine inc oral 17 :20:42 CDT CPT-10332 Hand comp min 3V 09:24:38 CDT CPT-14746 Venipuncture Draw Fee 08:07:29 TOURIST INFORMATION ASSISTANT CPT-41173 Venipuncture Draw Fee 09:02:51 TOURIST INFORMATION ASSISTANT CPT-99549 Venipuncture Draw Fee 12:45:08 TOURIST INFORMATION ASSISTANT CPT-72706 Venipuncture Draw Fee 09:25:31 CDT CPT-G0008 Administration of Influenza Virus Vaccine 14:41:29 CDT CPT-50848 Fluzone High-Dose Intramuscular Suspension 14:41:29 CDT CPT-Cryo Cryotherapy 11:48:20 CDT CPT-22991 EKG Trac and Interp 09:21:58 CDT CPT-15954 Chest 2V Frontal and Lat 09:21:58 CDT CPT-Cryo Cryotherapy 10:54:51 TOURIST INFORMATION ASSISTANT CPT-24792 Administration 2+ single or combination vaccines inc oral 10:42:19 CDT CPT-20432 Administration single or combination vaccine inc oral 10 :42:19 CDT CPT-41737 Pneumovax 10:42:19 CDT CPT-75791 Influenza High Dose age 65+ 10:42:19 CDT CPT-22044 Administration single or combination vaccine inc oral 13 :18:54 CDT CPT-32990 Influenza High Dose age 65+ 13:18:54 CDT CPT-68227 Venipuncture Draw Fee 11:53:16 CDT CPT-65940 LS spine comp w obliq 11:03:13 CDT CPT-Cryo Cryotherapy 08:27:16 TOURIST INFORMATION ASSISTANT CPT-23557 Administration single or combination vaccine inc oral 10 :56:34 CDT CPT-21114 Influenza High Dose age 65+ 10:56:34 CDT
--- OUTSIDE RECORDS SUMMARY | 2018-03-31 18:04 | XMS REPORT | Clinical Summary ---
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 sales manager V58.65 Resolved Simon Castillo MD Long-term [...] ICD-729.5 Inactive Simon Castillo MD Steroid use, consulting sales manager ICD-V58.65 Inactive Simon Castillo MD Hand [...] MG ORAL TBEC 1 po qd ASPIRIN 73606983616 Active Simon Castillo MD Active CLOTRIMAZOLE 1 % EXT CREA Apply to affected area of feet twice daily PRN Rash CLOTRIMAZOLE 02529750881 No Longer Active Simon Castillo MD Active PREDNISONE 5 MG TAB 1 po BID PREDNISONE 24534956122 Active Simon Castillo MD Active GLIMEPIRIDE 2 MG ORAL TABS 1 po BID GLIMEPIRIDE 21091850196 Active Simon Castillo MD Active FISH OIL 1000 MG CPDR 1 po BID OMEGA-3 FATTY ACIDS 60941972948 Active Simon Castillo MD Active LISINOPRIL 10 MG TABS 1 p qd LISINOPRIL 46584836264 Active Simon Castillo MD Active CLARITIN 10 MG TAB 1 tablet by mouth daily as needed for allergies LORATADINE 65349371209 No Longer Active Simon Castillo MD Active TRIAMCINOLONE ACETONIDE 0.1 % OINT Apply to affected areas TID for up to 2 weeks TRIAMCINOLONE ACETONIDE 54377713727 No Longer Active Simon Castillo MD Active LASIX 20 MG TAB 1 tablet by mouth daily x 2 days FUROSEMIDE 31824375457 No Longer Active Simon Castillo MD Active SULFASALAZINE 500 MG ORAL TBEC 2 tabs BID SULFASALAZINE 74674913407 No Longer Active Neto Oshea DO Active PREDNISONE 20 MG TAB 2 tabs daily for 3 days, 1 tab daily for 3 days, 1/2 tab daily for 2 days PREDNISONE 12832353348 No Longer Active Jillina Frazell MOVIE STAR Active PREDNISONE 20 MG TAB 1 tablet daily for airway inflammation 02/25 PREDNISONE 95148122405 No Longer Active Jillina Frazell MOVIE STAR Active AZITHROMYCIN 250 MG TABS 2 po qd x 1 day, then 1 po qd x 4 days AZITHROMYCIN 39997605168 No Longer Active Jillina Frazell MOVIE STAR Active HYDROCODONE-ACETAMINOPHEN 5-325 MG TABS 1 tab by mouth 8 hours as needed for pain HYDROCODONE-ACETAMINOPHEN 55725355223 Active Simon Castillo MD Active TRAMADOL HCL 50 MG TABS 1 po q6hr PRN Pain TRAMADOL HCL 59472176269 No Longer Active Simon Castillo MD Active PREDNISONE 5 MG TABS 1 po qod PREDNISONE 77450767572 No Longer Active Simon Castillo MD Active SYMBICORT 160-4.5 MCG/ACT AERO 2 puff BID BUDESONIDE- FORMOTEROL FUMARATE 46001739366 No Longer Active Simon Castillo MD Active FLONASE 50 MCG/ACT SUSP 2 puffs in each nostril daily FLUTICASONE PROPIONATE 64531338501 No Longer Active Simon Castillo MD Active PREDNISONE 20 MG TAB 2 tabs daily for 5 days, then 1 daily for 5 days PREDNISONE 51079708558 No Longer Active Simon Castillo MD Active PREDNISONE 20 MG TAB 2 tabs daily for 5 days, then 1 daily for 5 days, then 0.5 for 4 days PREDNISONE 12613458234 No Longer Active Simon Castillo MD Active PREDNISONE 20 MG TAB 2 tabs daily for 3 days, 1 tab daily for 3 days, 1/2 tab daily for 2 days PREDNISONE 68446681711 No Longer Active Simon Castillo MD Active AZITHROMYCIN 250 MG TABS 2 po qd x 1 day, then 1 po qd x 4 days AZITHROMYCIN 72100381444 No Longer Active Simon Castillo MD Active CARVEDILOL 6.25 MG TABS 1 po BID CARVEDILOL 14967602071 Active Simon Castillo MD Active LISINOPRIL-HYDROCHLOROTHIAZIDE 20-12.5 MG TABS 1/2 tab by mouth daily LISINOPRIL-HYDROCHLOROTHIAZIDE 77600806510 No Longer Active Simon Castillo MD Active TRAMADOL HCL 50 MG TABS 1-2 tablets every 6 hours as needed for pain TRAMADOL HCL 32581593612 Active Giles Tatum APRN Active PREDNISONE 5 MG TAB Take one po qod PREDNISONE 89631784063 No Longer Active Simon Castillo MD Active GLYBURIDE 5 MG TAB Take one by mouth daily GLYBURIDE 83389489251 No Longer Active Simon Castillo MD Active LEVAQUIN 750 MG TABS 1 po qod x 5 doses LEVOFLOXACIN 59328569087 No Longer Active Simon Castillo MD Active CETIRIZINE HCL 10 MG TABS 1 po qd as needed for allergies CETIRIZINE HCL 06295776091 No Longer Active Simon Castillo MD Active BILBERRY CAPS 1 tab daily BILBERRY (VACCINIUM MYRTILLUS) CAPS 98595676657 Active Simon Castillo MD Active ATENOLOL 50 MG TABS Take one by mouth daily ATENOLOL 64591973287 No Longer Active Simon Castillo MD Active FLONASE 50 MCG/ACT SUSP 2 puffs in each nostril daily FLUTICASONE PROPIONATE 37970953413 No Longer Active Simon Castillo MD Active GLYBURIDE 5 MG TAB Take one by mouth daily GLYBURIDE 76091985985 No Longer Active Simon Castillo MD Active SYMBICORT 80-4.5 MCG/ACT AERO 2 puffs twice a day BUDESONIDE-FORMOTEROL FUMARATE 88468051031 No Longer Active Simon Castillo MD Active PREDNISONE 20 MG TAB 2 tabs daily for 4 days, 1 tab daily for 4 days, 1/2 tab daily for 4 days PREDNISONE 70970489738 No Longer Active Simon Castillo MD Active AMOXICILLIN 500 MG CAPS 2 po BID x 10 days AMOXICILLIN 40912357708 No Longer Active Simon Castillo MD Active METFORMIN HCL 1000 MG TABS 1 by mounth twice a day METFORMIN HCL 41944750069 No Longer Active Simon Castillo MD Active LUTEIN-ZEAXANTHIN 6-1 MG TABS Take 2 by mouth daily LUTEIN-ZEAXANTHIN 12140471531 Active Simon Castillo MD Active IBUPROFEN 800 MG TABS Take 1 tab every 6 hrs prn IBUPROFEN 95988876741 No Longer Active Simon Castillo MD Active GLYBURIDE 2.5 MG TABS Take one by mouth daily GLYBURIDE 46999197275 No Longer Active Simon Castillo MD Active LANCETS MISC 2 qd LANCETS 90037234649 Active Pamela Conde Active ACACIA CONTOUR TEST STRP Use with testing twice daily GLUCOSE BLOOD 21975163598 Active Simon Castillo MD Active GLYBURIDE 2.5 MG TABS Take one by mouth daily GLYBURIDE 2.5 MG TABS 019361 GLYBURIDE Inactive PREDNISONE 20 MG TAB 2 tabs daily for 4 days, 1 tab daily for 4 days, 1/2 tab daily for 4 days PREDNISONE 20 MG TAB 654804 PREDNISONE Inactive SYMBICORT 80-4.5 MCG/ACT AERO 2 puffs twice a day SYMBICORT 80-4.5 MCG/ACT AERO BUDESONIDE-FORMOTEROL FUMARATE Inactive FLONASE 50 MCG/ACT SUSP 2 puffs in each nostril daily FLONASE 50 MCG/ACT SUSP FLUTICASONE PROPIONATE Inactive ATENOLOL 50 MG TABS Take one by mouth daily ATENOLOL 50 MG TABS 915249 ATENOLOL Inactive CETIRIZINE HCL 10 MG TABS 1 po qd as needed for allergies CETIRIZINE HCL 10 MG TABS 3762747 CETIRIZINE HCL Inactive LEVAQUIN 750 MG TABS 1 po qod x 5 doses LEVAQUIN 750 MG TABS 864287 LEVOFLOXACIN Inactive GLYBURIDE 5 MG TAB Take one by mouth daily GLYBURIDE 5 MG TAB 070924 GLYBURIDE Inactive PREDNISONE 5 MG TAB Take one po qod PREDNISONE 5 MG TAB 565733 PREDNISONE Inactive PREDNISONE 20 MG TAB 2 tabs daily for 5 days, then 1 daily for 5 days PREDNISONE 20 MG TAB 308363 PREDNISONE Inactive FLONASE 50 MCG/ACT SUSP 2 puffs in each nostril daily FLONASE 50 MCG/ACT SUSP FLUTICASONE PROPIONATE Inactive SYMBICORT 160-4.5 MCG/ACT AERO 2 puff BID SYMBICORT 160-4.5 MCG/ACT AERO BUDESONIDE-FORMOTEROL FUMARATE Inactive PREDNISONE 5 MG TABS 1 po qod PREDNISONE 5 MG TABS 642450 PREDNISONE Inactive PREDNISONE 20 MG TAB 1 tablet daily for airway inflammation 02/25 PREDNISONE 20 MG TAB 084840 PREDNISONE Inactive SULFASALAZINE 500 MG ORAL TBEC 2 tabs BID SULFASALAZINE 500 MG ORAL TBEC 607557 SULFASALAZINE Inactive LASIX 20 MG TAB 1 tablet by mouth daily x 2 days LASIX 20 MG TAB 040747 FUROSEMIDE Inactive CLARITIN 10 MG TAB 1 tablet by mouth daily as needed for allergies CLARITIN 10 MG TAB 614224 LORATADINE Inactive CLOTRIMAZOLE 1 % EXT CREA Apply to affected area of feet twice daily PRN Rash CLOTRIMAZOLE 1 % EXT CREA 209098 CLOTRIMAZOLE Inactive AMOXICILLIN 500 MG CAPS 2 po BID x 10 days AMOXICILLIN 500 MG CAPS 513106 AMOXICILLIN Inactive GLYBURIDE 5 MG TAB Take one by mouth daily GLYBURIDE 5 MG TAB 396143 GLYBURIDE Inactive AZITHROMYCIN 250 MG TABS 2 po qd x 1 day, then 1 po qd x 4 days AZITHROMYCIN 250 MG TABS 1777700 AZITHROMYCIN Inactive PREDNISONE 20 MG TAB 2 tabs daily for 3 days, 1 tab daily for 3 days, 1/2 tab daily for 2 days PREDNISONE 20 MG TAB 221804 PREDNISONE Inactive PREDNISONE 20 MG TAB 2 tabs daily for 5 days, then 1 daily for 5 days, then 0.5 for 4 days PREDNISONE 20 MG TAB 671721 PREDNISONE Inactive AZITHROMYCIN 250 MG TABS 2 po qd x 1 day, then 1 po qd x 4 days AZITHROMYCIN 250 MG TABS 8670447 AZITHROMYCIN Inactive PREDNISONE 20 MG TAB 2 tabs daily for 3 days, 1 tab daily for 3 days, 1/2 tab daily for 2 days PREDNISONE 20 MG TAB 172464 PREDNISONE Inactive TRIAMCINOLONE ACETONIDE 0.1 % OINT Apply to affected areas TID for up to 2 weeks TRIAMCINOLONE ACETONIDE 0.1 % OINT 3158504 TRIAMCINOLONE ACETONIDE Inactive Immunizations Vaccine Administration Date [...] Panel - Chemistry sodium, serum 137 mmol/L 048-221 6788/06/06 carbon dioxide, venous blood 24.9 mmol/L 21.0-32.0 [...] Panel - Chemistry sodium, serum 139 mmol/L 922-450 1388/03/17 carbon dioxide, venous blood 29.0 mmol/L 21.0-32.0 [...] 8.5 % 4.3-6.0 sodium, serum 137 mmol/L 933-592 0884/02/12 potassium, serum 5.1 mmol/L 3.5-5.2 chloride, serum 103 mmol/L 98-107 carbon dioxide, venous blood 24.4 mmol/L 21.0-32.0 blood glucose 261 mg/dL 65-110 calcium, serum 9.0 mg/dL 8.5-10.1 urea nitrogen, blood 44 mg/dL 7-18 creatinine, serum 2.37 mg/dL 0.55-1.30 Lab Report: Lipid Panel, HGBA1C, Comp. Metabolic Panel - Chemistry cholesterol, serum 126 mg/dL 740-807 2453/02/07 triglyceride, serum, fasting 83 mg/dL 30-200 HDL cholesterol, serum 70 mg/dL 32-96 LDL cholesterol, serum 39 mg/dL 0-130 hemoglobin A1C, blood, as % of total hemoglobin 8.3 % 4.3-6.0 sodium, serum 141 mmol/L 662-181 3442/02/07 carbon dioxide, venous blood 26.0 mmol/L 21.0-32.0 [...] 2.6-7.2 Encounters Code Encounter Date Provider Facility CPT-62341 Level 4 Est. Patient 09:29:28 ELECT[employer] COMMODITY MANAGER Simon Castillo MD [facility] CPT-85292 Level 3 Est. Patient 09:18:25 CDT Simon Castilol MD [facility] CPT-57854 Level 4 Est. Patient 11:51:23 CDT Simon Castillo MD [facility] CPT-12673 Level 4 Est. Patient 14:32:04 CDT Neto Oshea DO [facility] CPT-61339 Level 3 Est. Patient 08:41:43 CDT Giles Nashamayal [facility] CPT-38793 Level 3 Est. Patient 08:40:53 CDT Jillina Nashzell [facility] CPT-48037 Level 3 Est. Patient 08:36:52 CDT Jillina Nashzell [facility] CPT-37766 Level 3 Est. Patient 09:08:44 CDT Jonathanmeli Nashamayal [facility] CPT-55024 Level 4 Est. Patient 09:17:32 ELECTRONICS COMMODITY MANAGER Simon Castillo MD [facility] CPT-78623 Level 3 Est. Patient 11:22:22 ELECTRONICS COMMODITY MANAGER Simon Castillo MD [facility] CPT-44081 Level 3 Est. Patient 09:02:14 CDT Simon Castillo MD [facility] CPT-39184 Level 4 Est. Patient 08:47:25 CDT Simon Castillo MD [facility] CPT-22576 Level 4 Est. Patient 10:17:25 CDT Simon Castillo MD [facility] CPT-17746 Level 4 Est. Patient 10:10:09 ELECTRONICS COMMODITY MANAGER Simon Castillo MD [facility] CPT-29132 Level 4 Est. Patient 11:48:19 CDT Simon Castillo MD [facility] CPT-38595 Level 4 Est. Patient 08:59:29 CDT Simon Castillo MD [facility] CPT-78317 Level 4 Est. Patient 10:52:51 ELECTRONICS COMMODITY MANAGER Simon Castillo MD [facility] CPT-18130 Level 4 Est. Patient 11:50:30 CDT Simon Castillo MD [facility] CPT-65234 Level 4 Est. Patient 09:54:46 CDT Simon Castillo MD [facility] CPT-78228 Level 3 Est. Patient 11:10:14 CDT Simon Castillo MD [facility] CPT-56441 Level 4 Est. Patient 09:44:02 CDT Simon Castillo MD [facility] CPT-17031 Level 3 Est. Patient 09:27:48 CDT Simon Castillo MD [facility] CPT-37418 Level 3 Est. Patient 09:58:06 ELECTRONICS COMMODITY MANAGER Simon Castillo MD [facility] CPT-01646 Level 3 Est. Patient 09:51:35 CDT Simon Castillo MD [facility] Procedures Code Procedure Name Date Entry Date Standard Description CPT-25371 First Vx - Ix admin for Medicare patients 17:33:39 CDT CPT-24433 Fluzone High-Dose Intramuscular Suspension 17:33:39 CDT CPT-G0438 Initial Annual Wellness Exam 08:57:30 CDT CPT-93675 Chest 2V Frontal and Lat - XRAY USE ONLY 09:00:14 CDT CPT-48512 Venipuncture Draw Fee 13:33:02 CDT CPT-99141 Bone Density 09:37:49 ELECTRONICS COMMODITY MANAGER CPT-10539 Fluzone High Dose 17:20:42 CDT CPT-14707 Prevnar 13 17:20:42 CDT CPT-15563 Administration 2+ single or combination vaccines inc oral 17:20:42 CDT CPT-16233 Administration single or combination vaccine inc oral 17 :20:42 CDT CPT-37330 Hand comp min 3V 09:24:38 CDT CPT-24364 Venipuncture Draw Fee 08:07:29 ELECTRONICS COMMODITY MANAGER CPT-65816 Venipuncture Draw Fee 09:02:51 ELECTRONICS COMMODITY MANAGER CPT-96803 Venipuncture Draw Fee 12:45:08 ELECTRONICS COMMODITY MANAGER CPT-34024 Venipuncture Draw Fee 09:25:31 CDT CPT-G0008 Administration of Influenza Virus Vaccine 14:41:29 CDT CPT-34920 Fluzone High-Dose Intramuscular Suspension 14:41:29 CDT CPT-Cryo Cryotherapy 11:48:20 CDT CPT-28738 EKG Trac and Interp 09:21:58 CDT CPT-39484 Chest 2V Frontal and Lat 09:21:58 CDT CPT-Cryo Cryotherapy 10:54:51 ELECTRONICS COMMODITY MANAGER CPT-36441 Administration 2+ single or combination vaccines inc oral 10:42:19 CDT CPT-57854 Administration single or combination vaccine inc oral 10 :42:19 CDT CPT-25060 Pneumovax 10:42:19 CDT CPT-24336 Influenza High Dose age 65+ 10:42:19 CDT CPT-84009 Administration single or combination vaccine inc oral 13 :18:54 CDT CPT-72779 Influenza High Dose age 65+ 13:18:54 CDT CPT-77585 Venipuncture Draw Fee 11:53:16 CDT CPT-45425 LS spine comp w obliq 11:03:13 CDT CPT-Cryo Cryotherapy 08:27:16 ELECTRONICS COMMODITY MANAGER CPT-02717 Administration single or combination vaccine inc oral 10 :56:34 CDT CPT-08927 Influenza High Dose age 65+ 10:56:34 CDT
--- OUTSIDE RECORDS SUMMARY | 2018-03-31 18:07 | XMS REPORT | Clinical Summary ---
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 Kerry Castillo MD Steroid use, 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 Inactive Simon Castillo MD Hand pain, [...] MG ORAL TABLET 1 po qd BUMETANIDE 39097867341 Active Simon Castillo MD Active AUGMENTIN 875-125 MG ORAL TABLET 1 po BID x 10 days AMOXICILLIN-POT CLAVULANATE 59425021917 No Longer Active Simon Castillo MD Active PIOGLITAZONE HCL 30 MG ORAL TABLET 1 po qd PIOGLITAZONE HCL 67575905976 Active Simon Castillo MD Active GLIMEPIRIDE 4 MG ORAL TABLET 1 po BID GLIMEPIRIDE 90159697986 Active Simon Castillo MD Active ASPIRIN EC 81 MG ORAL TABLET DELAYED RELEASE 1 po qd ASPIRIN 26423410912 Active Simon Castillo MD Active CLOTRIMAZOLE 1 % EXTERNAL CREAM Apply to affected area of feet twice daily PRN Rash CLOTRIMAZOLE 45297865693 No Longer Active Simon Castillo MD Active PREDNISONE 5 MG ORAL TABLET 1 po BID PREDNISONE 42396470969 Active Dolly MCDERMOTT Active FISH OIL 1000 MG ORAL CAPSULE DELAYED RELEASE 1 po BID OMEGA- 3 FATTY ACIDS 23746545267 Active Simon Castillo MD Active LISINOPRIL 10 MG ORAL TABLET 1 p qd LISINOPRIL 93381633921 Active Simon Castillo MD Active CLARITIN 10 MG ORAL TABLET 1 tablet by mouth daily as needed for allergies LORATADINE 24224976106 No Longer Active Simon Castillo MD Active TRIAMCINOLONE ACETONIDE 0.1 % EXTERNAL OINTMENT Apply to affected areas TID for up to 2 weeks TRIAMCINOLONE ACETONIDE 58473444390 No Longer Active Simon Castillo MD Active LASIX 20 MG ORAL TABLET 1 tablet by mouth daily x 2 days FUROSEMIDE 39540081631 No Longer Active Simon Castillo MD Active SULFASALAZINE 500 MG ORAL TABLET DELAYED RELEASE 2 tabs BID 02/26 SULFASALAZINE 17679683673 No Longer Active Neto Oshea DO Active PREDNISONE 20 MG ORAL TABLET 2 tabs daily for 3 days, 1 tab daily for 3 days, 1/2 tab daily for 2 days PREDNISONE 99827890024 No Longer Active Giles Tatum APRN Active PREDNISONE 20 MG ORAL TABLET 1 tablet daily for airway inflammation PREDNISONE 00749752263 No Longer Active Giles Tatum APRN Active AZITHROMYCIN 250 MG ORAL TABLET 2 po qd x 1 day, then 1 po qd x 4 days 01/28 AZITHROMYCIN 84298650354 No Longer Active Giles Tatum APRN Active HYDROCODONE-ACETAMINOPHEN 5-325 MG ORAL TABLET 1 tab by mouth 8 hours as needed for pain HYDROCODONE-ACETAMINOPHEN 04709855126 Active Simon Castillo MD Active TRAMADOL HCL 50 MG ORAL TABLET 1 po q6hr PRN Pain TRAMADOL HCL 74720252073 No Longer Active Simon Castillo MD Active PREDNISONE 5 MG ORAL TABLET 1 po qod PREDNISONE 21187290483 No Longer Active Simon Castillo MD Active SYMBICORT 160-4.5 MCG/ACT INHALATION AEROSOL 2 puff BID BUDESONIDE-FORMOTEROL FUMARATE 57376838288 No Longer Active Simon Castillo MD Active FLONASE 50 MCG/ACT NASAL SUSPENSION 2 puffs in each nostril daily FLUTICASONE PROPIONATE 45750382420 No Longer Active Simon Castillo MD Active PREDNISONE 20 MG ORAL TABLET 2 tabs daily for 5 days, then 1 daily for 5 days PREDNISONE 38349067878 No Longer Active Simon Castillo MD Active PREDNISONE 20 MG ORAL TABLET 2 tabs daily for 5 days, then 1 daily for 5 days , then 0.5 for 4 days PREDNISONE 00103630073 No Longer Active Simon Castillo MD Active PREDNISONE 20 MG ORAL TABLET 2 tabs daily for 3 days, 1 tab daily for 3 days, 1/2 tab daily for 2 days PREDNISONE 73942886748 No Longer Active Simon Castillo MD Active AZITHROMYCIN 250 MG ORAL TABLET 2 po qd x 1 day, then 1 po qd x 4 days 03/16 AZITHROMYCIN 98326098993 No Longer Active Simon Castillo MD Active CARVEDILOL 6.25 MG ORAL TABLET 1 po BID CARVEDILOL 66075697360 Active Simon Castillo MD Active LISINOPRIL-HYDROCHLOROTHIAZIDE 20-12.5 MG ORAL TABLET 1/2 tab by mouth daily LISINOPRIL-HYDROCHLOROTHIAZIDE 47419107916 No Longer Active Simon Castillo MD Active TRAMADOL HCL 50 MG ORAL TABLET 1-2 tablets every 6 hours as needed for pain TRAMADOL HCL 98246434746 Active Giles Nashtico HEMPHILL Active PREDNISONE 5 MG ORAL TABLET Take one po qod PREDNISONE 26852555993 No Longer Active Simon Castillo MD Active GLYBURIDE 5 MG ORAL TABLET Take one by mouth daily GLYBURIDE 07763833509 No Longer Active Simon Castillo MD Active LEVAQUIN 750 MG ORAL TABLET 1 po qod x 5 doses LEVOFLOXACIN 26528098035 No Longer Active Simon Castillo MD Active CETIRIZINE HCL 10 MG ORAL TABLET 1 po qd as needed for allergies CETIRIZINE HCL 79090647755 No Longer Active Simon Castillo MD Active BILBERRY CAPSULE 1 tab daily BILBERRY (VACCINIUM MYRTILLUS) CAPS 90115057203 Active Simon Castillo MD Active ATENOLOL 50 MG ORAL TABLET Take one by mouth daily ATENOLOL 53604344453 No Longer Active Simon Castillo MD Active FLONASE 50 MCG/ACT NASAL SUSPENSION 2 puffs in each nostril daily FLUTICASONE PROPIONATE 48449303770 No Longer Active Simon Castillo MD Active GLYBURIDE 5 MG ORAL TABLET Take one by mouth daily GLYBURIDE 23379315366 No Longer Active Simon Castillo MD Active SYMBICORT 80-4.5 MCG/ACT INHALATION AEROSOL 2 puffs twice a day BUDESONIDE-FORMOTEROL FUMARATE 33868763959 No Longer Active Simon Castillo MD Active PREDNISONE 20 MG ORAL TABLET 2 tabs daily for 4 days, 1 tab daily for 4 days, 1/2 tab daily for 4 days PREDNISONE 69378418211 No Longer Active Simon Castillo MD Active AMOXICILLIN 500 MG ORAL CAPSULE 2 po BID x 10 days AMOXICILLIN 19479899026 No Longer Active Simon Castillo MD Active METFORMIN HCL 1000 MG ORAL TABLET 1 by mount twice a day METFORMIN HCL 37921087238 No Longer Active Simon Castillo MD Active LUTEIN-ZEAXANTHIN 6-1 MG ORAL TABLET Take 2 by mouth daily LUTEIN- ZEAXANTHIN 34722036661 Active Simon Castillo MD Active IBUPROFEN 800 MG ORAL TABLET Take 1 tab every 6 hrs prn IBUPROFEN 17532457794 No Longer Active Simon Castillo MD Active GLYBURIDE 2.5 MG ORAL TABLET Take one by mouth daily GLYBURIDE 54341052899 No Longer Active Simon Castillo MD Active LANCETS 2 qd LANCETS 56213513634 Active Pamela Conde Active ACACIA CONTOUR TEST IN VITRO STRIP Use with testing twice daily GLUCOSE BLOOD 92116683694 Active Simon Castillo MD Active GLYBURIDE 2.5 MG ORAL TABLET Take one by mouth daily GLYBURIDE 2.5 MG ORAL TABLET 809567 GLYBURIDE Inactive PREDNISONE 20 MG ORAL TABLET 2 tabs daily for 4 days, 1 tab daily for 4 days, 1/2 tab daily for 4 days PREDNISONE 20 MG ORAL TABLET 596903 PREDNISONE Inactive SYMBICORT 80-4.5 MCG/ACT INHALATION AEROSOL 2 puffs twice a day SYMBICORT 80-4.5 MCG/ACT INHALATION AEROSOL BUDESONIDE- FORMOTEROL FUMARATE Inactive FLONASE 50 MCG/ACT NASAL SUSPENSION 2 puffs in each nostril daily FLONASE 50 MCG/ACT NASAL SUSPENSION 4454406 FLUTICASONE PROPIONATE Inactive ATENOLOL 50 MG ORAL TABLET Take one by mouth daily ATENOLOL 50 MG ORAL TABLET 545735 ATENOLOL Inactive CETIRIZINE HCL 10 MG ORAL TABLET 1 po qd as needed for allergies CETIRIZINE HCL 10 MG ORAL TABLET 8076042 CETIRIZINE HCL Inactive LEVAQUIN 750 MG ORAL TABLET 1 po qod x 5 doses LEVAQUIN 750 MG ORAL TABLET 692144 LEVOFLOXACIN Inactive GLYBURIDE 5 MG ORAL TABLET Take one by mouth daily GLYBURIDE 5 MG ORAL TABLET 331098 GLYBURIDE Inactive PREDNISONE 5 MG ORAL TABLET Take one po qod PREDNISONE 5 MG ORAL TABLET 614226 PREDNISONE Inactive PREDNISONE 20 MG ORAL TABLET 2 tabs daily for 5 days, then 1 daily for 5 days PREDNISONE 20 MG ORAL TABLET 426341 PREDNISONE Inactive FLONASE 50 MCG/ACT NASAL SUSPENSION 2 puffs in each nostril daily FLONASE 50 MCG/ACT NASAL SUSPENSION 6286489 FLUTICASONE PROPIONATE Inactive SYMBICORT 160-4.5 MCG/ACT INHALATION AEROSOL 2 puff BID SYMBICORT 160-4.5 MCG/ACT INHALATION AEROSOL BUDESONIDE-FORMOTEROL FUMARATE Inactive PREDNISONE 5 MG ORAL TABLET 1 po qod PREDNISONE 5 MG ORAL TABLET 437058 PREDNISONE Inactive PREDNISONE 20 MG ORAL TABLET 1 tablet daily for airway inflammation PREDNISONE 20 MG ORAL TABLET 023837 PREDNISONE Inactive SULFASALAZINE 500 MG ORAL TABLET DELAYED RELEASE 2 tabs BID 02/26 SULFASALAZINE 500 MG ORAL TABLET DELAYED RELEASE 407404 SULFASALAZINE Inactive LASIX 20 MG ORAL TABLET 1 tablet by mouth daily x 2 days LASIX 20 MG ORAL TABLET 406371 FUROSEMIDE Inactive CLARITIN 10 MG ORAL TABLET 1 tablet by mouth daily as needed for allergies CLARITIN 10 MG ORAL TABLET 910769 LORATADINE Inactive CLOTRIMAZOLE 1 % EXTERNAL CREAM Apply to affected area of feet twice daily PRN Rash CLOTRIMAZOLE 1 % EXTERNAL CREAM 363945 CLOTRIMAZOLE Inactive AMOXICILLIN 500 MG ORAL CAPSULE 2 po BID x 10 days AMOXICILLIN 500 MG ORAL CAPSULE 646221 AMOXICILLIN Inactive GLYBURIDE 5 MG ORAL TABLET Take one by mouth daily GLYBURIDE 5 MG ORAL TABLET 859596 GLYBURIDE Inactive AZITHROMYCIN 250 MG ORAL TABLET 2 po qd x 1 day, then 1 po qd x 4 days 03/16 AZITHROMYCIN 250 MG ORAL TABLET 578557 AZITHROMYCIN Inactive PREDNISONE 20 MG ORAL TABLET 2 tabs daily for 3 days, 1 tab daily for 3 days, 1/2 tab daily for 2 days PREDNISONE 20 MG ORAL TABLET 853514 PREDNISONE Inactive PREDNISONE 20 MG ORAL TABLET 2 tabs daily for 5 days, then 1 daily for 5 days , then 0.5 for 4 days PREDNISONE 20 MG ORAL TABLET 034604 PREDNISONE Inactive AZITHROMYCIN 250 MG ORAL TABLET 2 po qd x 1 day, then 1 po qd x 4 days 01/28 AZITHROMYCIN 250 MG ORAL TABLET 273367 AZITHROMYCIN Inactive PREDNISONE 20 MG ORAL TABLET 2 tabs daily for 3 days, 1 tab daily for 3 days, 1/2 tab daily for 2 days PREDNISONE 20 MG ORAL TABLET 322779 PREDNISONE Inactive TRIAMCINOLONE ACETONIDE 0.1 % EXTERNAL OINTMENT Apply to affected areas TID for up to 2 weeks TRIAMCINOLONE ACETONIDE 0.1 % EXTERNAL OINTMENT 0861975 TRIAMCINOLONE ACETONIDE Inactive AUGMENTIN 875-125 MG ORAL TABLET 1 po BID x 10 days AUGMENTIN 875-125 MG ORAL TABLET 831153 AMOXICILLIN-POT CLAVULANATE Inactive Immunizations Vaccine Administration Date [...] Peptide - Chemistry sodium, serum 142 mmol/L [phone]/07/18 potassium, serum 5.0 mmol/L 3.5-5.2 chloride, serum [...] Panel - Chemistry sodium, serum 140 mmol/L 229-930 0805/07/13 carbon dioxide, venous blood 23.7 mmol/L 21.0-32.0 [...] ... - Chemistry sodium, serum 142 mmol/L 545-394 1771/01/08 carbon dioxide, venous blood 23.9 mmol/L 21.0-32.0 [...] 7.8 % 4.3-6.0 Lab Report: Lipid Panel, [facility], Comp. Metabolic Panel - Chemistry cholesterol, serum 126 mg/dL [phone]/02/07 triglyceride, serum, fasting 83 mg/dL 30-200 HDL cholesterol, serum 70 mg/dL 32-96 LDL cholesterol, serum 39 mg/dL 0-130 hemoglobin A1C, blood, as % of total hemoglobin 8.3 % 4.3-6.0 sodium, serum 141 mmol/L 983-708 0669/02/07 carbon dioxide, venous blood 26.0 mmol/L 21.0-32.0 [...] Negative;Positive Encounters Code Encounter Date Provider Facility CPT-14885 Level 3 Est. Patient 12:04:38 [employer]EST FI[employer]OL OFFICER Giles Tatum [facility] CPT-86897 Level 3 Est. Patient 11:57:09 [employer]EST FIRE CONTROL OFFICER Giles Tatum [facility] CPT-51770 Level 3 Est. Patient 11:48:57 FOREST FIRE CONTROL OFFICER Giles Tatum [facility] CPT-91767 Level 4 Est. Patient 09:54:36 CDT [facility] CPT-43925 Level 4 Est. Patient 08:48:38 CDT [facility] CPT-04120 Level 4 Est. Patient 09:54:08 CDT [facility] CPT-19270 Level 4 Est. Patient 16:11:23 CDT [facility] CPT-62293 Level 4 Est. Patient 09:29:28 FOREST FIRE CONTROL OFFICER Simon [facility] CPT-26475 Level 3 Est. Patient 09:18:25 CDT Simon [facility] CPT-91555 Level 4 Est. Patient 11:51:23 CDT Simon [facility] CPT-43849 Level 4 Est. Patient 14:32:04 CDT Neto Oshea DO [facility] CPT-78753 Level 3 Est. Patient 08:41:43 CDT Giles Tatum [facility] CPT-77877 Level 3 Est. Patient 08:40:53 CDT Giles Tatum [facility] CPT-54858 Level 3 Est. Patient 08:36:52 CDT Giles Tatum [facility] CPT-58377 Level 3 Est. Patient 09:08:44 CDT Jonathanmeli Nashtico [facility] CPT-67528 Level 4 Est. Patient 09:17:32 [employer]EST FIRE CONTROL OFFICER Simon [facility] CPT-72315 Level 3 Est. Patient 11:22:22 FOREST FIRE CONTROL OFFICER Simon Castillo MD [facility] CPT-65857 Level 3 Est. Patient 09:02:14 CDT Simon Castillo MD [facility] CPT-72425 Level 4 Est. Patient 08:47:25 CDT [facility] CPT-57382 Level 4 Est. Patient 10:17:25 CDT Simon Castillo MD [facility] CPT-09481 Level 4 Est. Patient 10:10:09 FOREST FIRE CONTROL OFFICER Simon Castillo MD [facility] CPT-68868 Level 4 Est. Patient 11:48:19 CDT Simon Castillo MD [facility] CPT-79613 Level 4 Est. Patient 08:59:29 CDT [facility] CPT-93385 Level 4 Est. Patient 10:52:51 FOREST FIRE CONTROL OFFICER Simon Castillo MD [facility] CPT-20869 Level 4 Est. Patient 11:50:30 CDT Simon Castillo MD [facility] CPT-03557 Level 4 Est. Patient 09:54:46 CDT Simon Castillo MD [facility] CPT-90302 Level 3 Est. Patient 11:10:14 CDT Simon Castillo MD [facility] CPT-54707 Level 4 Est. Patient 09:44:02 CDT Simon Castillo MD [facility] CPT-93132 Level 3 Est. Patient 09:27:48 CDT Simon Castillo MD [facility] CPT-55963 Level 3 Est. Patient 09:58:06 [employer]EST FIRE CONTROL OFFICER Simon Castillo MD [facility] CPT-73866 Level 3 Est. Patient 09:51:35 CDT Simon Castillo MD [facility] Procedures Code Procedure Name Date Entry Date Standard Description CPT-89037 EKG Trac and Interp - XRAY USE ONLY 12:19:18 [employer] OFFICER 09/29 CPT-96580 Chest, 2 views 12:19:17 [employer]EST [employer]RE [employer]OL OFFICER CPT-Cryo Cryotherapy 09:54:37 CDT CPT-13625 First Vx - Ix admin for Medicare patients 09:13:10 CDT CPT-87079 Fluzone High-Dose Intramuscular Suspension 09:13:10 CDT CPT-G0439 Subsequent Annual Wellness Exam 09:41:17 CDT CPT-58720 Lipid - LAB USE ONLY 17:15:33 CDT CPT-37693 HGBA1C - LAB USE ONLY 17:15:33 CDT CPT-49065 CMP - LAB USE ONLY 17:15:33 CDT CPT-96776 Venipuncture Draw Fee 17:15:33 CDT CPT-[facility] Transitional Care Mgmt-High 11:01:28 [employer]EST [employer]RE [employer]OL OFFICER CPT-17781 First Vx - Ix admin for Medicare patients 17:33:39 CDT CPT-57908 Fluzone High-Dose Intramuscular Suspension 17:33:39 CDT CPT-G0438 Initial Annual Wellness Exam 08:57:30 CDT CPT-06570 Chest 2V Frontal and Lat - XRAY USE ONLY 09:00:14 CDT CPT-22659 Venipuncture Draw Fee 13:33:02 CDT CPT-47442 Bone Density 09:37:49 [employer] OFFICER CPT-46521 Fluzone High Dose 17:20:42 CDT CPT-02740 Prevnar 13 17:20:42 CDT CPT-53860 Administration 2+ single or combination vaccines inc oral 17:20:42 CDT CPT-63583 Administration single or combination vaccine inc oral 17 :20:42 CDT CPT-03939 Hand comp min 3V 09:24:38 CDT CPT-41438 Venipuncture Draw Fee 08:07:29 [employer] OFFICER CPT-08939 Venipuncture Draw Fee 09:02:51 [employer] OFFICER CPT-58106 Venipuncture Draw Fee 12:45:08 [employer] OFFICER CPT-03280 Venipuncture Draw Fee 09:25:31 CDT CPT-G0008 Administration of Influenza Virus Vaccine 14:41:29 CDT CPT-60778 Fluzone High-Dose Intramuscular Suspension 14:41:29 CDT CPT-Cryo Cryotherapy 11:48:20 CDT CPT-63133 EKG Trac and Interp 09:21:58 CDT CPT-57617 Chest 2V Frontal and Lat 09:21:58 CDT CPT-Cryo Cryotherapy 10:54:51 [employer] OFFICER CPT-59403 Administration 2+ single or combination vaccines inc oral 10:42:19 CDT CPT-21045 Administration single or combination vaccine inc oral 10 :42:19 CDT CPT-37615 Pneumovax 10:42:19 CDT CPT-96410 Influenza High Dose age 65+ 10:42:19 CDT CPT-06398 Administration single or combination vaccine inc oral 13 :18:54 CDT CPT-90053 Influenza High Dose age 65+ 13:18:54 CDT CPT-67338 Venipuncture Draw Fee 11:53:16 CDT CPT-07835 LS spine comp w obliq 11:03:13 CDT CPT-Cryo Cryotherapy 08:27:16 [employer] OFFICER CPT-66209 Administration single or combination vaccine inc oral 10 :56:34 CDT CPT-11917 Influenza High Dose age 65+ 10:56:34 CDT
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
--- OUTSIDE RECORDS SUMMARY | 2018-03-31 18:16 | XMS REPORT | Clinical Summary ---
Author Author Admin, E Organization [employer] Address Unknown Phone Unavailable Allergies, Adverse Reactions, [...] MD Rheumatoid arthritis Steroid use, terminal gauger V58.65 Resolved Simon Castillo MD Long-term (current) [...] ICD-729.5 Kerry Castillo MD Steroid use, terminal gauger ICD-V58.65 Kerry Castillo MD Hand pain, bilateral [...] ORAL TABS 1 po qd PIOGLITAZONE HCL 01020130419 Lin Castillo MD Active GLIMEPIRIDE 4 MG ORAL TABS 1 po BID GLIMEPIRIDE 68938678547 Active Simon Castillo MD Active ASPIRIN EC 81 MG ORAL TBEC 1 po qd ASPIRIN 70015458674 Active Simon Castillo MD Active CLOTRIMAZOLE 1 % EXT CREA Apply to affected area of feet twice daily PRN Rash CLOTRIMAZOLE 22564147671 No Longer Active Simon Castillo MD Active PREDNISONE 5 MG TAB 1 po BID PREDNISONE 72239983090 Active Simon Castillo MD Active FISH OIL 1000 MG CPDR 1 po BID OMEGA-3 FATTY ACIDS 42198809847 Active Simon Castillo MD Active LISINOPRIL 10 MG TABS 1 p qd LISINOPRIL 60247818133 Active Simon Castillo MD Active CLARITIN 10 MG TAB 1 tablet by mouth daily as needed for allergies LORATADINE 19305541743 No Longer Active Simon Castillo MD Active TRIAMCINOLONE ACETONIDE 0.1 % OINT Apply to affected areas TID for up to 2 weeks TRIAMCINOLONE ACETONIDE 97397438976 No Longer Active Simon Castillo MD Active LASIX 20 MG TAB 1 tablet by mouth daily x 2 days FUROSEMIDE 26019522845 No Longer Active Simon Castillo MD Active SULFASALAZINE 500 MG ORAL TBEC 2 tabs BID SULFASALAZINE 87511519601 No Longer Active Neto Oshea DO Active PREDNISONE 20 MG TAB 2 tabs daily for 3 days, 1 tab daily for 3 days, 1/2 tab daily for 2 days PREDNISONE 90471804430 No Longer Active Jilltriston Tatum APRN Active PREDNISONE 20 MG TAB 1 tablet daily for airway inflammation 02/25 PREDNISONE 44802361806 No Longer Active Jillina Frazell PBX TEACHER Active AZITHROMYCIN 250 MG TABS 2 po qd x 1 day, then 1 po qd x 4 days AZITHROMYCIN 44450293476 No Longer Active Giles Tatum APRN Active HYDROCODONE-ACETAMINOPHEN 5-325 MG TABS 1 tab by mouth 8 hours as needed for pain HYDROCODONE-ACETAMINOPHEN 96155551357 Active Simon Castillo MD Active TRAMADOL HCL 50 MG TABS 1 po q6hr PRN Pain TRAMADOL HCL 32298785378 No Longer Active Simon Castillo MD Active PREDNISONE 5 MG TABS 1 po qod PREDNISONE 01119887059 No Longer Active Simon Castillo MD Active SYMBICORT 160-4.5 MCG/ACT AERO 2 puff BID BUDESONIDE- FORMOTEROL FUMARATE 79074249175 No Longer Active Simon Castillo MD Active FLONASE 50 MCG/ACT SUSP 2 puffs in each nostril daily FLUTICASONE PROPIONATE 04034895048 No Longer Active Simon Castillo MD Active PREDNISONE 20 MG TAB 2 tabs daily for 5 days, then 1 daily for 5 days PREDNISONE 39057418008 No Longer Active Simon Castillo MD Active PREDNISONE 20 MG TAB 2 tabs daily for 5 days, then 1 daily for 5 days, then 0.5 for 4 days PREDNISONE 78548278420 No Longer Active Simon Castillo MD Active PREDNISONE 20 MG TAB 2 tabs daily for 3 days, 1 tab daily for 3 days, 1/2 tab daily for 2 days PREDNISONE 59258470306 No Longer Active Simon Castillo MD Active AZITHROMYCIN 250 MG TABS 2 po qd x 1 day, then 1 po qd x 4 days AZITHROMYCIN 29312726243 No Longer Active Simon Castillo MD Active CARVEDILOL 6.25 MG TABS 1 po BID CARVEDILOL 43226387602 Active Simon Castillo MD Active LISINOPRIL-HYDROCHLOROTHIAZIDE 20-12.5 MG TABS 1/2 tab by mouth daily LISINOPRIL-HYDROCHLOROTHIAZIDE 99410191072 No Longer Active Simon Castillo MD Active TRAMADOL HCL 50 MG TABS 1-2 tablets every 6 hours as needed for pain TRAMADOL HCL 02556775251 Active Giles Tatum APRN Active PREDNISONE 5 MG TAB Take one po qod PREDNISONE 30421577270 No Longer Active Simon Castillo MD Active GLYBURIDE 5 MG TAB Take one by mouth daily GLYBURIDE 27557036297 No Longer Active Simon Castillo MD Active LEVAQUIN 750 MG TABS 1 po qod x 5 doses LEVOFLOXACIN 35927645137 No Longer Active Simon Castillo MD Active CETIRIZINE HCL 10 MG TABS 1 po qd as needed for allergies CETIRIZINE HCL 01790953265 No Longer Active Simon Castillo MD Active BILBERRY CAPS 1 tab daily BILBERRY (VACCINIUM MYRTILLUS) CAPS 98896692669 Active Simon Castillo MD Active ATENOLOL 50 MG TABS Take one by mouth daily ATENOLOL 28845568362 No Longer Active Simon Castillo MD Active FLONASE 50 MCG/ACT SUSP 2 puffs in each nostril daily FLUTICASONE PROPIONATE 26179297410 No Longer Active Simon Castillo MD Active GLYBURIDE 5 MG TAB Take one by mouth daily GLYBURIDE 36596481263 No Longer Active Simon Castillo MD Active SYMBICORT 80-4.5 MCG/ACT AERO 2 puffs twice a day BUDESONIDE-FORMOTEROL FUMARATE 14490421260 No Longer Active Simon Castillo MD Active PREDNISONE 20 MG TAB 2 tabs daily for 4 days, 1 tab daily for 4 days, 1/2 tab daily for 4 days PREDNISONE 85444903598 No Longer Active Simon Castillo MD Active AMOXICILLIN 500 MG CAPS 2 po BID x 10 days AMOXICILLIN 18753723647 No Longer Active Simon Castillo MD Active METFORMIN HCL 1000 MG TABS 1 by [facility] twice a day METFORMIN HCL 47796924490 No Longer Active Simon Castillo MD Active LUTEIN-ZEAXANTHIN 6-1 MG TABS Take 2 by mouth daily LUTEIN-ZEAXANTHIN 26715689957 Active Simon Castillo MD Active IBUPROFEN 800 MG TABS Take 1 tab every 6 hrs prn IBUPROFEN 39409051104 No Longer Active Simon Castillo MD Active GLYBURIDE 2.5 MG TABS Take one by mouth daily GLYBURIDE 23857481616 No Longer Active Simon Castillo MD Active LANCETS MISC 2 qd LANCETS 03709608095 Active Pamela Conde Active ACACIA CONTOUR TEST STRP Use with testing twice daily GLUCOSE BLOOD 84367939742 Active Simon Castillo MD Active GLYBURIDE 2.5 MG TABS Take one by mouth daily GLYBURIDE 2.5 MG TABS 506276 GLYBURIDE Inactive PREDNISONE 20 MG TAB 2 tabs daily for 4 days, 1 tab daily for 4 days, 1/2 tab daily for 4 days PREDNISONE 20 MG TAB 105024 PREDNISONE Inactive SYMBICORT 80-4.5 MCG/ACT AERO 2 puffs twice a day SYMBICORT 80-4.5 MCG/ACT AERO BUDESONIDE-FORMOTEROL FUMARATE Inactive FLONASE 50 MCG/ACT SUSP 2 puffs in each nostril daily FLONASE 50 MCG/ACT SUSP 2042359 FLUTICASONE PROPIONATE Inactive ATENOLOL 50 MG TABS Take one by mouth daily ATENOLOL 50 MG TABS 232409 ATENOLOL Inactive CETIRIZINE HCL 10 MG TABS 1 po qd as needed for allergies CETIRIZINE HCL 10 MG TABS 1615845 CETIRIZINE HCL Inactive LEVAQUIN 750 MG TABS 1 po qod x 5 doses LEVAQUIN 750 MG TABS 109281 LEVOFLOXACIN Inactive GLYBURIDE 5 MG TAB Take one by mouth daily GLYBURIDE 5 MG TAB 351277 GLYBURIDE Inactive PREDNISONE 5 MG TAB Take one po qod PREDNISONE 5 MG TAB 146178 PREDNISONE Inactive PREDNISONE 20 MG TAB 2 tabs daily for 5 days, then 1 daily for 5 days PREDNISONE 20 MG TAB 615639 PREDNISONE Inactive FLONASE 50 MCG/ACT SUSP 2 puffs in each nostril daily FLONASE 50 MCG/ACT SUSP 4952445 FLUTICASONE PROPIONATE Inactive SYMBICORT 160-4.5 MCG/ACT AERO 2 puff BID SYMBICORT 160-4.5 MCG/ACT AERO BUDESONIDE-FORMOTEROL FUMARATE Inactive PREDNISONE 5 MG TABS 1 po qod PREDNISONE 5 MG TABS 649272 PREDNISONE Inactive PREDNISONE 20 MG TAB 1 tablet daily for airway inflammation 02/25 PREDNISONE 20 MG TAB 219154 PREDNISONE Inactive SULFASALAZINE 500 MG ORAL TBEC 2 tabs BID SULFASALAZINE 500 MG ORAL TBEC 666973 SULFASALAZINE Inactive LASIX 20 MG TAB 1 tablet by mouth daily x 2 days LASIX 20 MG TAB 869241 FUROSEMIDE Inactive CLARITIN 10 MG TAB 1 tablet by mouth daily as needed for allergies CLARITIN 10 MG TAB 942659 LORATADINE Inactive CLOTRIMAZOLE 1 % EXT CREA Apply to affected area of feet twice daily PRN Rash CLOTRIMAZOLE 1 % EXT CREA 669645 CLOTRIMAZOLE Inactive AMOXICILLIN 500 MG CAPS 2 po BID x 10 days AMOXICILLIN 500 MG CAPS 345516 AMOXICILLIN Inactive GLYBURIDE 5 MG TAB Take one by mouth daily GLYBURIDE 5 MG TAB 465040 GLYBURIDE Inactive AZITHROMYCIN 250 MG TABS 2 po qd x 1 day, then 1 po qd x 4 days AZITHROMYCIN 250 MG TABS 9781803 AZITHROMYCIN Inactive PREDNISONE 20 MG TAB 2 tabs daily for 3 days, 1 tab daily for 3 days, 1/2 tab daily for 2 days PREDNISONE 20 MG TAB 662033 PREDNISONE Inactive PREDNISONE 20 MG TAB 2 tabs daily for 5 days, then 1 daily for 5 days, then 0.5 for 4 days PREDNISONE 20 MG TAB 255203 PREDNISONE Inactive AZITHROMYCIN 250 MG TABS 2 po qd x 1 day, then 1 po qd x 4 days AZITHROMYCIN 250 MG TABS 4560414 AZITHROMYCIN Inactive PREDNISONE 20 MG TAB 2 tabs daily for 3 days, 1 tab daily for 3 days, 1/2 tab daily for 2 days PREDNISONE 20 MG TAB 843810 PREDNISONE Inactive TRIAMCINOLONE ACETONIDE 0.1 % OINT Apply to affected areas TID for up to 2 weeks TRIAMCINOLONE ACETONIDE 0.1 % OINT 5210281 TRIAMCINOLONE ACETONIDE Inactive Immunizations Vaccine Administration Date [...] Panel - Chemistry sodium, serum 137 mmol/L 975-943 7698/06/06 carbon dioxide, venous blood 24.9 mmol/L 21.0-32.0 [...] Panel - Chemistry cholesterol, serum 126 mg/dL 281-116 0574/02/07 triglyceride, serum, fasting 83 mg/dL 30-200 HDL cholesterol, serum 70 mg/dL 32-96 LDL cholesterol, serum 39 mg/dL 0-130 hemoglobin A1C, blood, as % of total hemoglobin 8.3 % 4.3-6.0 sodium, serum 141 mmol/L 107-954 7391/02/07 carbon dioxide, venous blood 26.0 mmol/L 21.0-32.0 [...] 2.6-7.2 Encounters Code Encounter Date Provider Facility CPT-68695 Level 4 Est. Patient 16:11:23 CDT Simon Castillo MD [facility] CPT-57472 Level 4 Est. Patient 09:29:28 BLENDING SUPERVISOR Simon Castillo MD [facility] CPT-75406 Level 3 Est. Patient 09:18:25 CDT Simon Castillo MD [facility] CPT-38112 Level 4 Est. Patient 11:51:23 CDT Simon Castillo MD [facility] CPT-32996 Level 4 Est. Patient 14:32:04 CDT Neto Oshea DO [facility] CPT-62531 Level 3 Est. Patient 08:41:43 CDT Giles Tatum [facility] CPT-11069 Level 3 Est. Patient 08:40:53 CDT Giles Salcidol [facility] CPT-95545 Level 3 Est. Patient 08:36:52 CDT Giles Salcidol [facility] CPT-45667 Level 3 Est. Patient 09:08:44 CDT Giles Tatum [facility] CPT-97782 Level 4 Est. Patient 09:17:32 BLENDING SUPERVISOR Simon Castillo MD [facility] CPT-09860 Level 3 Est. Patient 11:22:22 BLENDING SUPERVISOR Simon Castillo MD [facility] CPT-61167 Level 3 Est. Patient 09:02:14 CDT Simon Castillo MD [facility] CPT-39334 Level 4 Est. Patient 08:47:25 CDT Simon Castillo MD [facility] CPT-71694 Level 4 Est. Patient 10:17:25 CDT Simon Castillo MD [facility] CPT-45591 Level 4 Est. Patient 10:10:09 BLENDING SUPERVISOR Simon Castillo MD [facility] CPT-98058 Level 4 Est. Patient 11:48:19 CDT Simon Castillo MD [facility] CPT-68722 Level 4 Est. Patient 08:59:29 CDT Simon Castillo MD [facility] CPT-31661 Level 4 Est. Patient 10:52:51 BLENDING SUPERVISOR Simon Castillo MD [facility] CPT-49882 Level 4 Est. Patient 11:50:30 CDT Simon Castillo MD [facility] CPT-23437 Level 4 Est. Patient 09:54:46 CDT Simon Castillo MD [facility] CPT-18460 Level 3 Est. Patient 11:10:14 CDT Simon Castillo MD [facility] CPT-47371 Level 4 Est. Patient 09:44:02 CDT Simon Castillo MD [facility] CPT-39432 Level 3 Est. Patient 09:27:48 CDT Simon Castillo MD [facility] CPT-81770 Level 3 Est. Patient 09:58:06 BLENDING SUPERVISOR Simon Castillo MD [facility] CPT-59091 Level 3 Est. Patient 09:51:35 CDT Simon Castillo MD [facility] Procedures Code Procedure Name Date Entry Date Standard Description CPT-56166 Lipid - LAB USE ONLY 17:15:33 CDT CPT-95196 HGBA1C - LAB USE ONLY 17:15:33 CDT CPT-97217 CMP - LAB USE ONLY 17:15:33 CDT CPT-20338 Venipuncture Draw Fee 17:15:33 CDT CPT-[facility] Transitional Care Mgmt-High 11:01:28 BLENDING SUPERVISOR CPT-83425 First Vx - Ix admin for Medicare patients 17:33:39 CDT CPT-96969 Fluzone High-Dose Intramuscular Suspension 17:33:39 CDT CPT-G0438 Initial Annual Wellness Exam 08:57:30 CDT CPT-71537 Chest 2V Frontal and Lat - XRAY USE ONLY 09:00:14 CDT CPT-06410 Venipuncture Draw Fee 13:33:02 CDT CPT-17735 Bone Density 09:37:49 BLENDING SUPERVISOR CPT-02869 Fluzone High Dose 17:20:42 CDT CPT-81039 Prevnar 13 17:20:42 CDT CPT-84561 Administration 2+ single or combination vaccines inc oral 17:20:42 CDT CPT-46763 Administration single or combination vaccine inc oral 17 :20:42 CDT CPT-10401 Hand comp min 3V 09:24:38 CDT CPT-52975 Venipuncture Draw Fee 08:07:29 BLENDING SUPERVISOR CPT-27773 Venipuncture Draw Fee 09:02:51 BLENDING SUPERVISOR CPT-05373 Venipuncture Draw Fee 12:45:08 BLENDING SUPERVISOR CPT-83689 Venipuncture Draw Fee 09:25:31 CDT CPT-G0008 Administration of Influenza Virus Vaccine 14:41:29 CDT CPT-89225 Fluzone High-Dose Intramuscular Suspension 14:41:29 CDT CPT-[facility] 11:48:20 CDT CPT-41791 EKG Trac and Interp 09:21:58 CDT CPT-44223 Chest 2V Frontal and Lat 09:21:58 CDT CPT-[facility] Cryotherapy 10:54:51 BLENDING SUPERVISOR CPT-48413 Administration 2+ single or combination vaccines inc oral 10:42:19 CDT CPT-96577 Administration single or combination vaccine inc oral 10 :42:19 CDT CPT-35411 Pneumovax 10:42:19 CDT CPT-52551 Influenza High Dose age 65+ 10:42:19 CDT CPT-20702 Administration single or combination vaccine inc oral 13 :18:54 CDT CPT-03565 Influenza High Dose age 65+ 13:18:54 CDT CPT-20805 Venipuncture Draw Fee 11:53:16 CDT CPT-40437 LS spine comp w obliq 11:03:13 CDT CPT-[facility] Cryotherapy 08:27:16 BLENDING SUPERVISOR CPT-18025 Administration single or combination vaccine inc oral 10 :56:34 CDT CPT-39406 Influenza High Dose age 65+ 10:56:34 CDT
--- OUTSIDE RECORDS SUMMARY | 2018-03-31 18:18 | XMS REPORT | Clinical Summary ---
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 Simon Castillo MD Long-term (current) [...] Rheumatoid arthritis Pharyngitis 462 Active Jillina Frazell [employer] Acute pharyngitis Dyspnea 786.09 Active Jillina Frazell [employer] Other dyspnea and respiratory abnormality Peripheral edema 782.3 Active Jillina Frazell [employer] Edema 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 Simon Castillo [...] LOWER QUADRANT ICD-789.03 Inactive Simon Castillo MD Chest pain ICD-786.50 Inactive Simon Castillo MD Cough ICD-786.2 Inactive Simon Castillo MD Bronchitis, acute ICD-466.0 Inactive Simon Castillo MD Tinea pedis ICD-110.4 Inactive Simon Castillo MD Hand pain, bilateral ICD-729.5 Inactive Simon Castillo MD BENIGN PROSTATIC HYPERTROPHY, MILD, HX OF ICD-V13.89 Inactive Simon Castillo MD Obesity ICD-278.00 Inactive Simon Castillo MD 2013 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, 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 Simon Castillo MD Hand pain, bilateral ICD-729.5 Inactive Simon Castillo MD Medication List Medication Instructions Start Date Stop Date Generic Name NDC Status Provider Patient Instruction TRIAMCINOLONE ACETONIDE 0.1 % OINT Apply to affected areas TID for up to 2 weeks TRIAMCINOLONE ACETONIDE 44030192797 No Longer Active Simon Castillo MD Active LASIX 20 MG TAB 1 tablet by mouth daily x 2 days FUROSEMIDE 76376308949 No Longer Active Simon Castillo MD Active SULFASALAZINE 500 MG ORAL TBEC 2 tabs BID SULFASALAZINE 98239238809 No Longer Active Neto Oshea DO Active PREDNISONE 20 MG TAB 2 tabs daily for 3 days, 1 tab daily for 3 days, 1/2 tab daily for 2 days PREDNISONE 79729977953 No Longer Active Jillina Frazelalejandrina HEMPHILL Active PREDNISONE 20 MG TAB 1 tablet daily for airway inflammation 02/25 PREDNISONE 53147438782 No Longer Active Jillina Frazell [employer] Active CLARITIN 10 MG TAB 1 tablet by mouth daily as needed for allergies LORATADINE 23279222625 Active Jillina Lolyl [employer] Active AZITHROMYCIN 250 MG TABS 2 po qd x 1 day, then 1 po qd x 4 days AZITHROMYCIN 06781183198 No Longer Active Jillina Frazell [employer] Active GLIMEPIRIDE 2 MG ORAL TABS 1 po q a.m. GLIMEPIRIDE 92154220226 Active Simon Castillo MD Active HYDROCODONE-ACETAMINOPHEN 5-325 MG TABS 1 tab by mouth 8 hours as needed for pain HYDROCODONE-ACETAMINOPHEN 87113254777 Active Simon Castillo MD Active TRAMADOL HCL 50 MG TABS 1 po q6hr PRN Pain TRAMADOL HCL 86247492070 No Longer Active Simon Castillo MD Active PREDNISONE 5 MG TAB 1-2 tabs daily for rheumatoid arthritis PREDNISONE 53814318827 Active Simon Castillo MD Active PREDNISONE 5 MG TABS 1 po qod PREDNISONE 03303083726 No Longer Active Simon Castillo MD Active SYMBICORT 160-4.5 MCG/ACT AERO 2 puff BID BUDESONIDE- FORMOTEROL FUMARATE 09505111788 No Longer Active Simon Castillo MD Active FLONASE 50 MCG/ACT SUSP 2 puffs in each nostril daily FLUTICASONE PROPIONATE 83655295678 No Longer Active Simon Castillo MD Active PREDNISONE 20 MG TAB 2 tabs daily for 5 days, then 1 daily for 5 days PREDNISONE 54736723757 No Longer Active Simon Castillo MD Active PREDNISONE 20 MG TAB 2 tabs daily for 5 days, then 1 daily for 5 days, then 0.5 for 4 days PREDNISONE 36145242505 No Longer Active Simon Castillo MD Active CLOTRIMAZOLE 1 % EXT CREA Apply to affected area of feet twice daily PRN Rash CLOTRIMAZOLE 30246642698 Active Simon Castillo MD Active PREDNISONE 20 MG TAB 2 tabs daily for 3 days, 1 tab daily for 3 days, 1/2 tab daily for 2 days PREDNISONE 10237968975 No Longer Active Simon Castillo MD Active AZITHROMYCIN 250 MG TABS 2 po qd x 1 day, then 1 po qd x 4 days AZITHROMYCIN 50316730164 No Longer Active Simon Castillo MD Active LISINOPRIL 10 MG TABS 1 tablet by mouth daily LISINOPRIL 76102348034 Active Simon Castillo MD Active CARVEDILOL 6.25 MG TABS 1 po BID CARVEDILOL 78287784358 Active Simon Castillo MD Active LISINOPRIL-HYDROCHLOROTHIAZIDE 20-12.5 MG TABS 1/2 tab by mouth daily LISINOPRIL-HYDROCHLOROTHIAZIDE 20711269150 No Longer Active Simon Castillo MD Active TRAMADOL HCL 50 MG TABS 1-2 tablets every 6 hours as needed for pain TRAMADOL HCL 43612206589 Active Giles Tatum APRN Active PREDNISONE 5 MG TAB Take one po qod PREDNISONE 32800617746 No Longer Active Simon Castillo MD Active GLYBURIDE 5 MG TAB Take one by mouth daily GLYBURIDE 88660733957 No Longer Active Simon Castillo MD Active LEVAQUIN 750 MG TABS 1 po qod x 5 doses LEVOFLOXACIN 77753903081 No Longer Active Simon Castillo MD Active CETIRIZINE HCL 10 MG TABS 1 po qd as needed for allergies CETIRIZINE HCL 53105157761 No Longer Active Simon Castillo MD Active FISH OIL 1000 MG CPDR 1 pill by mouth twice daily for cholesterol OMEGA -3 FATTY ACIDS 57812122310 Active Simon Castillo MD Active BILBERRY CAPS 1 tab daily BILBERRY (VACCINIUM MYRTILLUS) CAPS 80767205773 Active Simon Castillo MD Active ATENOLOL 50 MG TABS Take one by mouth daily ATENOLOL 43327791072 No Longer Active iSmon Castillo MD Active FLONASE 50 MCG/ACT SUSP 2 puffs in each nostril daily FLUTICASONE PROPIONATE 00980412897 No Longer Active Simon Castillo MD Active GLYBURIDE 5 MG TAB Take one by mouth daily GLYBURIDE 69061454202 No Longer Active Simon Castillo MD Active SYMBICORT 80-4.5 MCG/ACT AERO 2 puffs twice a day BUDESONIDE-FORMOTEROL FUMARATE 56710147619 No Longer Active Simon Castillo MD Active PREDNISONE 20 MG TAB 2 tabs daily for 4 days, 1 tab daily for 4 days, 1/2 tab daily for 4 days PREDNISONE 84063969702 No Longer Active Simon Castillo MD Active AMOXICILLIN 500 MG CAPS 2 po BID x 10 days AMOXICILLIN 69429474901 No Longer Active Smion Castillo MD Active METFORMIN HCL 1000 MG TABS 1 by mounth twice a day METFORMIN HCL 08019235612 No Longer Active Simon Castillo MD Active LUTEIN-ZEAXANTHIN 6-1 MG TABS Take 2 by mouth daily LUTEIN-ZEAXANTHIN 57007546019 Active Simon Castillo MD Active IBUPROFEN 800 MG TABS Take 1 tab every 6 hrs prn IBUPROFEN 49655266183 No Longer Active Simon Castillo MD Active GLYBURIDE 2.5 MG TABS Take one by mouth daily GLYBURIDE 73220556682 No Longer Active Simon Castillo MD Active LANCETS MISC 2 qd LANCETS 83537728863 Active Pamela Conde Active ACACIA CONTOUR TEST STRP Use with testing twice daily GLUCOSE BLOOD 38610850589 Active Simon Castillo MD Active ACACIA ASPIRIN 325 MG TABS Take one by mouth daily ASPIRIN 34797085390 Active Pamela Conde Active GLYBURIDE 2.5 MG TABS Take one by mouth daily GLYBURIDE 2.5 MG TABS 237940 GLYBURIDE Inactive PREDNISONE 20 MG TAB 2 tabs daily for 4 days, 1 tab daily for 4 days, 1/2 tab daily for 4 days PREDNISONE 20 MG TAB 696830 PREDNISONE Inactive SYMBICORT 80-4.5 MCG/ACT AERO 2 puffs twice a day SYMBICORT 80-4.5 MCG/ACT AERO BUDESONIDE-FORMOTEROL FUMARATE Inactive FLONASE 50 MCG/ACT SUSP 2 puffs in each nostril daily FLONASE 50 MCG/ACT SUSP FLUTICASONE PROPIONATE Inactive ATENOLOL 50 MG TABS Take one by mouth daily ATENOLOL 50 MG TABS 400241 ATENOLOL Inactive CETIRIZINE HCL 10 MG TABS 1 po qd as needed for allergies CETIRIZINE HCL 10 MG TABS 4513393 CETIRIZINE HCL Inactive LEVAQUIN 750 MG TABS 1 po qod x 5 doses LEVAQUIN 750 MG TABS 293805 LEVOFLOXACIN Inactive GLYBURIDE 5 MG TAB Take one by mouth daily GLYBURIDE 5 MG TAB 574496 GLYBURIDE Inactive PREDNISONE 5 MG TAB Take one po qod PREDNISONE 5 MG TAB 024343 PREDNISONE Inactive PREDNISONE 20 MG TAB 2 tabs daily for 5 days, then 1 daily for 5 days PREDNISONE 20 MG TAB 988166 PREDNISONE Inactive FLONASE 50 MCG/ACT SUSP 2 puffs in each nostril daily FLONASE 50 MCG/ACT SUSP FLUTICASONE PROPIONATE Inactive SYMBICORT 160-4.5 MCG/ACT AERO 2 puff BID SYMBICORT 160-4.5 MCG/ACT AERO BUDESONIDE-FORMOTEROL FUMARATE Inactive PREDNISONE 5 MG TABS 1 po qod PREDNISONE 5 MG TABS 186052 PREDNISONE Inactive PREDNISONE 20 MG TAB 1 tablet daily for airway inflammation 02/25 PREDNISONE 20 MG TAB 536754 PREDNISONE Inactive SULFASALAZINE 500 MG ORAL TBEC 2 tabs BID SULFASALAZINE 500 MG ORAL TBEC 333597 SULFASALAZINE Inactive LASIX 20 MG TAB 1 tablet by mouth daily x 2 days LASIX 20 MG TAB 193567 FUROSEMIDE Inactive AMOXICILLIN 500 MG CAPS 2 po BID x 10 days AMOXICILLIN 500 MG CAPS 653706 AMOXICILLIN Inactive GLYBURIDE 5 MG TAB Take one by mouth daily GLYBURIDE 5 MG TAB 816279 GLYBURIDE Inactive AZITHROMYCIN 250 MG TABS 2 po qd x 1 day, then 1 po qd x 4 days AZITHROMYCIN 250 MG TABS 5924877 AZITHROMYCIN Inactive PREDNISONE 20 MG TAB 2 tabs daily for 3 days, 1 tab daily for 3 days, 1/2 tab daily for 2 days PREDNISONE 20 MG TAB 143962 PREDNISONE Inactive PREDNISONE 20 MG TAB 2 tabs daily for 5 days, then 1 daily for 5 days, then 0.5 for 4 days PREDNISONE 20 MG TAB 890541 PREDNISONE Inactive AZITHROMYCIN 250 MG TABS 2 po qd x 1 day, then 1 po qd x 4 days AZITHROMYCIN 250 MG TABS 9545402 AZITHROMYCIN Inactive PREDNISONE 20 MG TAB 2 tabs daily for 3 days, 1 tab daily for 3 days, 1/2 tab daily for 2 days PREDNISONE 20 MG TAB 376844 PREDNISONE Inactive TRIAMCINOLONE ACETONIDE 0.1 % OINT Apply to affected areas TID for up to 2 weeks TRIAMCINOLONE ACETONIDE 0.1 % OINT 4453304 TRIAMCINOLONE ACETONIDE Inactive Immunizations Vaccine Administration Date [...] Panel - Chemistry sodium, serum 137 mmol/L 427-465 9970/06/06 carbon dioxide, venous blood 24.9 mmol/L 21.0-32.0 [...] Panel - Chemistry sodium, serum 139 mmol/L 704-269 6783/03/17 carbon dioxide, venous blood 29.0 mmol/L 21.0-32.0 [...] 8.5 % 4.3-6.0 sodium, serum 137 mmol/L 555-579 9274/02/12 potassium, serum 5.1 mmol/L 3.5-5.2 chloride, serum 103 mmol/L 98-107 carbon dioxide, venous blood 24.4 mmol/L 21.0-32.0 blood glucose 261 mg/dL 65-110 calcium, serum 9.0 mg/dL 8.5-10.1 urea nitrogen, blood 44 mg/dL 7-18 creatinine, serum 2.37 mg/dL 0.55-1.30 Lab Report: Uric Acid - Chemistry uric acid, serum 6.3 mg/dL 2.6-7.2 Encounters Code Encounter Date Provider Facility CPT-01417 Level 3 Est. Patient 09:18:25 CDT Simon Castillo MD [facility] CPT-17948 Level 4 Est. Patient 11:51:23 CDT Simon Castillo MD [facility] CPT-74089 Level 4 Est. Patient 14:32:04 CDT Neto Oshea DO [facility] CPT-28201 Level 3 Est. Patient 08:41:43 CDT Giles Tatum APRN [facility] CPT-00882 Level 3 Est. Patient 08:40:53 CDT Jillina Frazell [facility] CPT-49648 Level 3 Est. Patient 08:36:52 CDT Jonathanmeli Nashtico [facility] CPT-29841 Level 3 Est. Patient 09:08:44 CDT Giles Nashtico [facility] CPT-58108 Level 4 Est. Patient 09:17:32 [employer] Simon Castillo MD [facility] CPT-59585 Level 3 Est. Patient 11:22:22 [employer] Simon Castillo MD [facility] CPT-23860 Level 3 Est. Patient 09:02:14 CDT Simon Castillo MD [facility] CPT-89950 Level 4 Est. Patient 08:47:25 CDT Simon Castillo MD [facility] CPT-03838 Level 4 Est. Patient 10:17:25 CDT Simon Castillo MD [facility] CPT-67087 Level 4 Est. Patient 10:10:09 [employer] Simon Castillo MD [facility] CPT-54009 Level 4 Est. Patient 11:48:19 CDT Simon Castillo MD [facility] CPT-56067 Level 4 Est. Patient 08:59:29 CDT Simon Castillo MD [facility] CPT-03109 Level 4 Est. Patient 10:52:51 [employer] Simon Castillo MD [facility] CPT-41364 Level 4 Est. Patient 11:50:30 CDT Simon Castillo MD [facility] CPT-33082 Level 4 Est. Patient 09:54:46 CDT Simon Castillo MD [facility] CPT-84101 Level 3 Est. Patient 11:10:14 CDT Simon Castillo MD [facility] CPT-20872 Level 4 Est. Patient 09:44:02 CDT Simon Castillo MD [facility] CPT-70182 Level 3 Est. Patient 09:27:48 CDT Simon Castillo MD [facility] CPT-33679 Level 3 Est. Patient 09:58:06 [employer] Simon Castillo MD [facility] CPT-92836 Level 3 Est. Patient 09:51:35 CDT Simon Castillo MD [facility] Procedures Code Procedure Name Date Entry Date Standard Description CPT-73602 First Vx - Ix admin for Medicare patients 17:33:39 CDT CPT-74652 Fluzone High-Dose Intramuscular Suspension 17:33:39 CDT CPT-G0438 Initial Annual Wellness Exam 08:57:30 CDT CPT-97453 Chest 2V Frontal and Lat - XRAY USE ONLY 09:00:14 CDT CPT-81731 Venipuncture Draw Fee 13:33:02 CDT CPT-08947 Bone Density 09:37:49 [employer] CPT-85649 Fluzone High Dose 17:20:42 CDT CPT-81808 Prevnar 13 17:20:42 CDT CPT-07859 Administration 2+ single or combination vaccines inc oral 17:20:42 CDT CPT-10587 Administration single or combination vaccine inc oral 17 :20:42 CDT CPT-43942 Hand comp min 3V 09:24:38 CDT CPT-97969 Venipuncture Draw Fee 08:07:29 [employer] CPT-56675 Venipuncture Draw Fee 09:02:51 [employer] CPT-22972 Venipuncture Draw Fee 12:45:08 [employer] CPT-27558 Venipuncture Draw Fee 09:25:31 CDT CPT-G0008 Administration of Influenza Virus Vaccine 14:41:29 CDT CPT-08511 Fluzone High-Dose Intramuscular Suspension 14:41:29 CDT CPT-Cryo Cryotherapy 11:48:20 CDT CPT-32998 EKG Trac and Interp 09:21:58 CDT CPT-24520 Chest 2V Frontal and Lat 09:21:58 CDT CPT-Cryo Cryotherapy 10:54:51 [employer] CPT-24914 Administration 2+ single or combination vaccines inc oral 10:42:19 CDT CPT-29595 Administration single or combination vaccine inc oral 10 :42:19 CDT CPT-95013 Pneumovax 10:42:19 CDT CPT-65349 Influenza High Dose age 65+ 10:42:19 CDT CPT-58093 Administration single or combination vaccine inc oral 13 :18:54 CDT CPT-26468 Influenza High Dose age 65+ 13:18:54 CDT CPT-37262 Venipuncture Draw Fee 11:53:16 CDT CPT-87495 LS spine comp w obliq 11:03:13 CDT CPT-Cryo Cryotherapy 08:27:16 [employer] CPT-79542 Administration single or combination vaccine inc oral 10 :56:34 CDT CPT-86146 Influenza High Dose age 65+ 10:56:34 CDT
--- OUTSIDE RECORDS SUMMARY | 2018-03-31 18:22 | XMS REPORT | Clinical Summary ---
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 Acute pharyngitis Dyspnea 786.09 Active Jillina Frazell REPLANTING MACHINE OPERATOR Other dyspnea and respiratory abnormality Peripheral edema 782.3 Active Jillina Frazell REPLANTING MACHINE OPERATOR Edema FH DIABETES ICD-V18.0 Inactive Simon Castillo [...] ICD-729.5 Inactive Simon Castillo MD Steroid use, prison ICD-V58.65 Inactive Simon Castillo MD Hand pain, bilateral ICD-729.5 Inactive Simon Castillo MD Medication List Medication Instructions Start Date Stop Date Generic Name NDC Status Provider Patient Instruction LASIX 20 MG TAB 1 tablet by mouth daily x 2 days FUROSEMIDE [id number] No Longer Active Simon Castillo MD Active SULFASALAZINE 500 MG ORAL TBEC 2 tabs BID SULFASALAZINE 44979548778 No Longer Active Neto Oshea DO Active PREDNISONE 20 MG TAB 2 tabs daily for 3 days, 1 tab daily for 3 days, 1/2 tab daily for 2 days PREDNISONE 78008780897 No Longer Active Jillina Frazell REPLANTING MACHINE 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 PREDNISONE 20 MG TAB 1 tablet daily for airway inflammation 02/25 PREDNISONE 94513113412 No Longer Active Jillina Frazell REPLANTING MACHINE 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 CLARITIN 10 MG TAB 1 tablet by mouth daily as needed for allergies LORATADINE 73615590571 Active Jillina Frazell REPLANTING MACHINE 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 AZITHROMYCIN 250 MG TABS 2 po qd x 1 day, then 1 po qd x 4 days AZITHROMYCIN 76603463660 No Longer Active Jillina Frazell REPLANTING MACHINE 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 GLIMEPIRIDE 2 MG ORAL TABS 1 po q a.m. GLIMEPIRIDE 96013572617 Active Simon Castillo MD Active HYDROCODONE-ACETAMINOPHEN 5-325 MG TABS 1 tab by mouth 8 hours as needed for pain HYDROCODONE-ACETAMINOPHEN 29007176880 Active Simon Castillo MD Active TRAMADOL HCL 50 MG TABS 1 po q6hr PRN Pain TRAMADOL HCL 40882394614 No Longer Active Simon Castillo MD Active PREDNISONE 5 MG TAB 1-2 tabs daily for rheumatoid arthritis PREDNISONE 19630364882 Active Simon Castillo MD Active PREDNISONE 5 MG TABS 1 po qod PREDNISONE 55598431845 No Longer Active Simon Castillo MD Active SYMBICORT 160-4.5 MCG/ACT AERO 2 puff BID BUDESONIDE- FORMOTEROL FUMARATE 06542297180 No Longer Active Simon Castillo MD Active FLONASE 50 MCG/ACT SUSP 2 puffs in each nostril daily FLUTICASONE PROPIONATE 11518373879 No Longer Active Simon Castillo MD Active PREDNISONE 20 MG TAB 2 tabs daily for 5 days, then 1 daily for 5 days PREDNISONE 97964944014 No Longer Active Simon Castillo MD Active PREDNISONE 20 MG TAB 2 tabs daily for 5 days, then 1 daily for 5 days, then 0.5 for 4 days PREDNISONE 48646974565 No Longer Active Simon Castillo MD Active CLOTRIMAZOLE 1 % EXT CREA Apply to affected area of feet twice daily PRN Rash CLOTRIMAZOLE 60757088467 Active Simon Castillo MD Active PREDNISONE 20 MG TAB 2 tabs daily for 3 days, 1 tab daily for 3 days, 1/2 tab daily for 2 days PREDNISONE 92870889100 No Longer Active Simon Castillo MD Active AZITHROMYCIN 250 MG TABS 2 po qd x 1 day, then 1 po qd x 4 days AZITHROMYCIN 17913756953 No Longer Active Simon Castillo MD Active LISINOPRIL 10 MG TABS 1 tablet by mouth daily LISINOPRIL 15193543915 Active Simon Castillo MD Active CARVEDILOL 6.25 MG TABS 1 po BID CARVEDILOL 99928134927 Active Simon Castillo MD Active LISINOPRIL-HYDROCHLOROTHIAZIDE 20-12.5 MG TABS 1/2 tab by mouth daily LISINOPRIL-HYDROCHLOROTHIAZIDE 93281883707 No Longer Active Simon Castillo MD Active TRAMADOL HCL 50 MG TABS 1-2 tablets every 6 hours as needed for pain TRAMADOL HCL 39988457043 Active Giles Tatum APRN Active PREDNISONE 5 MG TAB Take one po qod PREDNISONE 58148169980 No Longer Active Simon Castillo MD Active GLYBURIDE 5 MG TAB Take one by mouth daily GLYBURIDE 75936066116 No Longer Active Simon Castillo MD Active LEVAQUIN 750 MG TABS 1 po qod x 5 doses LEVOFLOXACIN 16993405749 No Longer Active Simon Castillo MD Active CETIRIZINE HCL 10 MG TABS 1 po qd as needed for allergies CETIRIZINE HCL 10000413986 No Longer Active Simon Castillo MD Active FISH OIL 1000 MG CPDR 1 pill by mouth twice daily for cholesterol OMEGA -3 FATTY ACIDS 21666514544 Active Simon Castillo MD Active BILBERRY CAPS 1 tab daily BILBERRY (VACCINIUM MYRTILLUS) CAPS 98768640505 Active Simon Castillo MD Active ATENOLOL 50 MG TABS Take one by mouth daily ATENOLOL 73946728308 No Longer Active Simon Castillo MD Active FLONASE 50 MCG/ACT SUSP 2 puffs in each nostril daily FLUTICASONE PROPIONATE 90443825818 No Longer Active Simon Castillo MD Active GLYBURIDE 5 MG TAB Take one by mouth daily GLYBURIDE 99141200045 No Longer Active Simon Castillo MD Active SYMBICORT 80-4.5 MCG/ACT AERO 2 puffs twice a day BUDESONIDE-FORMOTEROL FUMARATE 29411821262 No Longer Active Simon Castillo MD Active PREDNISONE 20 MG TAB 2 tabs daily for 4 days, 1 tab daily for 4 days, 1/2 tab daily for 4 days PREDNISONE 37843077456 No Longer Active Siomn Castillo MD Active AMOXICILLIN 500 MG CAPS 2 po BID x 10 days AMOXICILLIN 58433341957 No Longer Active Simon Castillo MD Active METFORMIN HCL 1000 MG TABS 1 by mounth twice a day METFORMIN HCL 55840122844 No Longer Active Simon Castillo MD Active LUTEIN-ZEAXANTHIN 6-1 MG TABS Take 2 by mouth daily LUTEIN-ZEAXANTHIN 77606880429 Active Simon Castillo MD Active IBUPROFEN 800 MG TABS Take 1 tab every 6 hrs prn IBUPROFEN 75451032219 No Longer Active Simon Castillo MD Active GLYBURIDE 2.5 MG TABS Take one by mouth daily GLYBURIDE 01134309331 No Longer Active Simon Castillo MD Active LANCETS MISC 2 qd LANCETS 83319165947 Active Pamela Conde Active ACACIA CONTOUR TEST STRP Use with testing twice daily GLUCOSE BLOOD 08367237560 Active Simon Castillo MD Active ACACIA ASPIRIN 325 MG TABS Take one by mouth daily ASPIRIN 95611399474 Active Pamela Conde Active GLYBURIDE 2.5 MG TABS Take one by mouth daily GLYBURIDE 2.5 MG TABS 393963 GLYBURIDE Inactive PREDNISONE 20 MG TAB 2 tabs daily for 4 days, 1 tab daily for 4 days, 1/2 tab daily for 4 days PREDNISONE 20 MG TAB 966982 PREDNISONE Inactive SYMBICORT 80-4.5 MCG/ACT AERO 2 puffs twice a day SYMBICORT 80-4.5 MCG/ACT AERO BUDESONIDE-FORMOTEROL FUMARATE Inactive FLONASE 50 MCG/ACT SUSP 2 puffs in each nostril daily FLONASE 50 MCG/ACT SUSP 525325 FLUTICASONE PROPIONATE Inactive ATENOLOL 50 MG TABS Take one by mouth daily ATENOLOL 50 MG TABS 313780 ATENOLOL Inactive CETIRIZINE HCL 10 MG TABS 1 po qd as needed for allergies CETIRIZINE HCL 10 MG TABS 8136533 CETIRIZINE HCL Inactive LEVAQUIN 750 MG TABS 1 po qod x 5 doses LEVAQUIN 750 MG TABS 412220 LEVOFLOXACIN Inactive GLYBURIDE 5 MG TAB Take one by mouth daily GLYBURIDE 5 MG TAB 125936 GLYBURIDE Inactive PREDNISONE 5 MG TAB Take one po qod PREDNISONE 5 MG TAB 867420 PREDNISONE Inactive PREDNISONE 20 MG TAB 2 tabs daily for 5 days, then 1 daily for 5 days PREDNISONE 20 MG TAB 653162 PREDNISONE Inactive FLONASE 50 MCG/ACT SUSP 2 puffs in each nostril daily FLONASE 50 MCG/ACT SUSP 074329 FLUTICASONE PROPIONATE Inactive SYMBICORT 160-4.5 MCG/ACT AERO 2 puff BID SYMBICORT 160-4.5 MCG/ACT AERO BUDESONIDE-FORMOTEROL FUMARATE Inactive PREDNISONE 5 MG TABS 1 po qod PREDNISONE 5 MG TABS 688533 PREDNISONE Inactive PREDNISONE 20 MG TAB 1 tablet daily for airway inflammation 02/25 PREDNISONE 20 MG TAB 144184 PREDNISONE Inactive SULFASALAZINE 500 MG ORAL TBEC 2 tabs BID SULFASALAZINE 500 MG ORAL TBEC 301629 SULFASALAZINE Inactive LASIX 20 MG TAB 1 tablet by mouth daily x 2 days LASIX 20 MG TAB 501780 FUROSEMIDE Inactive AMOXICILLIN 500 MG CAPS 2 po BID x 10 days AMOXICILLIN 500 MG CAPS 926564 AMOXICILLIN Inactive GLYBURIDE 5 MG TAB Take one by mouth daily GLYBURIDE 5 MG TAB 738741 GLYBURIDE Inactive AZITHROMYCIN 250 MG TABS 2 po qd x 1 day, then 1 po qd x 4 days AZITHROMYCIN 250 MG TABS 3823847 AZITHROMYCIN Inactive PREDNISONE 20 MG TAB 2 tabs daily for 3 days, 1 tab daily for 3 days, 1/2 tab daily for 2 days PREDNISONE 20 MG TAB 064719 PREDNISONE Inactive PREDNISONE 20 MG TAB 2 tabs daily for 5 days, then 1 daily for 5 days, then 0.5 for 4 days PREDNISONE 20 MG TAB 881316 PREDNISONE Inactive AZITHROMYCIN 250 MG TABS 2 po qd x 1 day, then 1 po qd x 4 days AZITHROMYCIN 250 MG TABS 8547109 AZITHROMYCIN Inactive PREDNISONE 20 MG TAB 2 tabs daily for 3 days, 1 tab daily for 3 days, 1/2 tab daily for 2 days PREDNISONE 20 MG TAB 034817 PREDNISONE Inactive Immunizations Vaccine Administration Date Value [...] pressure, diastolic - 8462-4 60 mm[Hg] BP casitllo blood pressure, systolic - 8480-6 128 mm[Hg] [...] Panel - Chemistry sodium, serum 132 mmol/L 326-325 5835/10/26 carbon dioxide, venous blood 22.8 mmol/L 21.0-32.0 potassium, serum 5.4 mmol/L 3.5-5.2 chloride, serum 98 mmol/L 98-107 blood glucose 424 mg/dL 65-110 urea nitrogen, blood 40 mg/dL 7-18 creatinine, serum 2.26 mg/dL 0.55-1.30 alanine aminotransferase (SGPT), serum 29 U/L -78 aspartate aminotransferase (SGOT), serum 24 U/L 15-37 calcium, serum 8.6 mg/dL 8.5-10.1 bilirubin, serum, total 0.60 mg/dL 0.00-1.00 sodium, serum 137 mmol/L 929-210 0529/06/06 carbon dioxide, venous blood 24.9 mmol/L 21.0-32.0 [...] % 11.6-14.8 platelet count 210 10^3/MM^3 10*3/mm3 476-912 3586/10/26 leukocyte count, blood 10.3 10^3/MM^3 10*3/mm3 4.6-10.2 [...] Panel - Chemistry sodium, serum 139 mmol/L 907-045 9537/03/17 carbon dioxide, venous blood 29.0 mmol/L 21.0-32.0 [...] Rate - Chemistry sodium, serum 136 mmol/L 760-440 4130/09/18 carbon dioxide, venous blood 24.3 mmol/L 21.0-32.0 [...] HGBA1C - Chemistry sodium, serum 139 mmol/L 408-666 2196/07/09 potassium, serum 5.4 mmol/L 3.5-5.2 chloride, serum [...] 8.5 % 4.3-6.0 sodium, serum 137 mmol/L 644-029 2611/02/12 potassium, serum 5.1 mmol/L 3.5-5.2 chloride, serum 103 mmol/L 98-107 carbon dioxide, venous blood 24.4 mmol/L 21.0-32.0 blood glucose 261 mg/dL 65-110 calcium, serum 9.0 mg/dL 8.5-10.1 urea nitrogen, blood 44 mg/dL 7-18 creatinine, serum 2.37 mg/dL 0.55-1.30 Lab Report: Lipid Panel - Chemistry cholesterol, serum 139 mg/dL 783-228 2969/09/10 triglyceride, serum, fasting 176 mg/dL 30-200 HDL cholesterol, serum 45 mg/dL 32-96 LDL cholesterol, serum 59 mg/dL 0-130 Lab Report: MICROALBUMIN - Chemistry albumin/creatinine ratio, urine 30 - 300 mg/g mg/g{creat} 0-29 Lab Report: MICROALBUMIN - Lab microalbumin, urine 30 0-19 Lab Report: Uric Acid - Chemistry uric acid, serum 6.3 mg/dL 2.6-7.2 Encounters Code Encounter Date Provider Facility CPT-66167 Level 4 Est. Patient 11:51:23 CDT Simon Castillo MD [facility] CPT-21891 Level 4 Est. Patient 14:32:04 CDT Neto Oshea DO [facility] CPT-82085 Level 3 Est. Patient 08:41:43 CDT Giles Tatum [facility] CPT-55761 Level 3 Est. Patient 08:40:53 CDT Giles Tatum [facility] CPT-29368 Level 3 Est. Patient 08:36:52 CDT Giles Nashtico [facility] CPT-51134 Level 3 Est. Patient 09:08:44 CDT Giles Nashtico [facility] CPT-14931 Level 4 Est. 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 Patient 11:22:22 CLOTH SHRINKING MACHINE OPERATOR HELPER Simon Castillo MD [facility] CPT-82495 Level 3 Est. Patient 09:02:14 CDT Simon Castillo MD [facility] CPT-25995 Level 4 Est. Patient 08:47:25 CDT Simon Castillo MD [facility] CPT-80535 Level 4 Est. Patient 10:17:25 CDT Simon Castillo MD [facility] CPT-06236 Level 4 Est. Patient 10:10:09 [employer]OTH SHRINKING MACHINE OPERATOR HELPER Simon Castillo MD [facility] CPT-45705 Level 4 Est. Patient 11:48:19 CDT Simon Castillo MD [facility] CPT-95703 Level 4 Est. Patient 08:59:29 CDT Simon Castillo MD [facility] CPT-53523 Level 4 Est. Patient 10:52:51 [employer]OTH SHRINKING MACHINE OPERATOR HELPER Simon Castillo MD [facility] CPT-47037 Level 4 Est. Patient 11:50:30 CDT Simon Castillo MD [facility] CPT-92811 Level 4 Est. Patient 09:54:46 CDT Simon Castillo MD [facility] CPT-12412 Level 3 Est. Patient 11:10:14 CDT Simon Castillo MD [facility] CPT-91509 Level 4 Est. Patient 09:44:02 CDT Simon Castillo MD [facility] CPT-91190 Level 3 Est. Patient 09:27:48 CDT Simon Castillo MD [facility] CPT-58695 Level 3 Est. Patient 09:58:06 CLOTH SHRINKING MACHINE OPERATOR HELPER Simon Castillo MD [facility] CPT-03650 Level 3 Est. Patient 09:51:35 CDT Simon Castillo MD [facility] Procedures Code Procedure Name Date Entry Date Standard Description CPT-G0438 Initial Annual Wellness Exam 08:57:30 CDT CPT-12778 Chest 2V Frontal and Lat - XRAY USE ONLY 09:00:14 CDT CPT-08435 Venipuncture Draw Fee 13:33:02 CDT CPT-98750 Bone Density 09:37:49 [employer]OTH SHRINKING MACHINE OPERATOR HELPER CPT-00635 Fluzone High Dose 17:20:42 CDT CPT-71407 Prevnar 13 17:20:42 CDT CPT-17502 Administration 2+ single or combination vaccines inc oral 17:20:42 CDT CPT-51907 Administration single or combination vaccine inc oral 17 :20:42 CDT CPT-18548 Hand comp min 3V 09:24:38 CDT CPT-26170 Venipuncture Draw Fee 08:07:29 [employer]OTH SHRINKING MACHINE OPERATOR HELPER CPT-35246 Venipuncture Draw Fee 09:02:51 [employer]OTH SHRINKING MACHINE OPERATOR HELPER CPT-08397 Venipuncture Draw Fee 12:45:08 [employer]OTH SHRINKING MACHINE OPERATOR HELPER CPT-16281 Venipuncture Draw Fee 09:25:31 CDT CPT-G0008 Administration of Influenza Virus Vaccine 14:41:29 CDT CPT-30435 Fluzone High-Dose Intramuscular Suspension 14:41:29 CDT CPT-Cryo Cryotherapy 11:48:20 CDT CPT-58669 EKG Trac and Interp 09:21:58 CDT CPT-69121 Chest 2V Frontal and Lat 09:21:58 CDT CPT-Cryo Cryotherapy 10:54:51 [employer]OTH [employer]RINK[employer] MACHINE OPERATOR HELPER CPT-75291 Administration 2+ single or combination vaccines inc oral 10:42:19 CDT CPT-59489 Administration single or combination vaccine inc oral 10 :42:19 CDT CPT-10197 Pneumovax 10:42:19 CDT CPT-48454 Influenza High Dose age 65+ 10:42:19 CDT CPT-26655 Administration single or combination vaccine inc oral 13 :18:54 CDT CPT-53936 Influenza High Dose age 65+ 13:18:54 CDT CPT-68882 Venipuncture Draw Fee 11:53:16 CDT CPT-11963 LS spine comp w obliq 11:03:13 CDT CPT-Cryo Cryotherapy 08:27:16 [employer]OTH SHRINKING MACHINE OPERATOR HELPER CPT-89598 Administration single or combination vaccine inc oral 10 :56:34 CDT CPT-35111 Influenza High Dose age 65+ 10:56:34 CDT
--- OUTSIDE RECORDS SUMMARY | 2018-03-31 18:25 | XMS REPORT | Clinical Summary ---
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.65 Kerry Castillo MD Hand pain, [...] ORAL TABS 1 po qd PIOGLITAZONE HCL 74900113783 Active Simon Castillo MD Active GLIMEPIRIDE 4 MG ORAL TABS 1 po BID GLIMEPIRIDE 43333545140 Active Simon Castillo MD Active ASPIRIN EC 81 MG ORAL TBEC 1 po qd ASPIRIN 15262506509 Active Simon Castillo MD Active CLOTRIMAZOLE 1 % EXT CREA Apply to affected area of feet twice daily PRN Rash CLOTRIMAZOLE 08675530142 No Longer Active Simon Castillo MD Active PREDNISONE 5 MG TAB 1 po BID PREDNISONE 36131138126 Active Simon Castillo MD Active FISH OIL 1000 MG CPDR 1 po BID OMEGA-3 FATTY ACIDS 56231137793 Active Simon Castillo MD Active LISINOPRIL 10 MG TABS 1 p qd LISINOPRIL 05696159188 Active Simon Castillo MD Active CLARITIN 10 MG TAB 1 tablet by mouth daily as needed for allergies LORATADINE 59771851853 No Longer Active Simon Castillo MD Active TRIAMCINOLONE ACETONIDE 0.1 % OINT Apply to affected areas TID for up to 2 weeks TRIAMCINOLONE ACETONIDE 05173112427 No Longer Active Simon Castillo MD Active LASIX 20 MG TAB 1 tablet by mouth daily x 2 days FUROSEMIDE 77721985604 No Longer Active Simon Castillo MD Active SULFASALAZINE 500 MG ORAL TBEC 2 tabs BID SULFASALAZINE 21843025175 No Longer Active Neto Oshea DO Active PREDNISONE 20 MG TAB 2 tabs daily for 3 days, 1 tab daily for 3 days, 1/2 tab daily for 2 days PREDNISONE 05172839225 No Longer Active 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 PREDNISONE 20 MG TAB 1 tablet daily for airway inflammation 02/25 PREDNISONE 90023158014 No Longer Active 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 AZITHROMYCIN 250 MG TABS 2 po qd x 1 day, then 1 po qd x 4 days AZITHROMYCIN 68378721759 No Longer Active 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 HYDROCODONE-ACETAMINOPHEN 5-325 MG TABS 1 tab by mouth 8 hours as needed for pain HYDROCODONE-ACETAMINOPHEN 94613323353 Active Simon Castillo MD Active TRAMADOL HCL 50 MG TABS 1 po q6hr PRN Pain TRAMADOL HCL 39020646114 No Longer Active Simon Castillo MD Active PREDNISONE 5 MG TABS 1 po qod PREDNISONE 50986601133 No Longer Active Simon Castillo MD Active SYMBICORT 160-4.5 MCG/ACT AERO 2 puff BID BUDESONIDE- FORMOTEROL FUMARATE 50204157043 No Longer Active Simon Castillo MD Active FLONASE 50 MCG/ACT SUSP 2 puffs in each nostril daily FLUTICASONE PROPIONATE 19241610836 No Longer Active Simon Castillo MD Active PREDNISONE 20 MG TAB 2 tabs daily for 5 days, then 1 daily for 5 days PREDNISONE 71153644405 No Longer Active Simon Castillo MD Active PREDNISONE 20 MG TAB 2 tabs daily for 5 days, then 1 daily for 5 days, then 0.5 for 4 days PREDNISONE 73494743833 No Longer Active Simon Castillo MD Active PREDNISONE 20 MG TAB 2 tabs daily for 3 days, 1 tab daily for 3 days, 1/2 tab daily for 2 days PREDNISONE 61152003517 No Longer Active Simon Castillo MD Active AZITHROMYCIN 250 MG TABS 2 po qd x 1 day, then 1 po qd x 4 days AZITHROMYCIN 34511480077 No Longer Active Simon Castillo MD Active CARVEDILOL 6.25 MG TABS 1 po BID CARVEDILOL 91359872159 Active Simon Castillo MD Active LISINOPRIL-HYDROCHLOROTHIAZIDE 20-12.5 MG TABS 1/2 tab by mouth daily LISINOPRIL-HYDROCHLOROTHIAZIDE 84561271028 No Longer Active Simon Castillo MD Active TRAMADOL HCL 50 MG TABS 1-2 tablets every 6 hours as needed for pain TRAMADOL HCL 27258806887 Active Giles Tatum APRN Active PREDNISONE 5 MG TAB Take one po qod PREDNISONE 72693658881 No Longer Active Simon Castillo MD Active GLYBURIDE 5 MG TAB Take one by mouth daily GLYBURIDE 56188715473 No Longer Active Simon Castillo MD Active LEVAQUIN 750 MG TABS 1 po qod x 5 doses LEVOFLOXACIN 14340076340 No Longer Active Simon Castillo MD Active CETIRIZINE HCL 10 MG TABS 1 po qd as needed for allergies CETIRIZINE HCL 59342636111 No Longer Active Simon Castillo MD Active BILBERRY CAPS 1 tab daily BILBERRY (VACCINIUM MYRTILLUS) CAPS 45212740328 Active Simon Castillo MD Active ATENOLOL 50 MG TABS Take one by mouth daily ATENOLOL 73277401951 No Longer Active Simon Castillo MD Active FLONASE 50 MCG/ACT SUSP 2 puffs in each nostril daily FLUTICASONE PROPIONATE 70679569023 No Longer Active Simon Castillo MD Active GLYBURIDE 5 MG TAB Take one by mouth daily GLYBURIDE 85654596541 No Longer Active Simon Castillo MD Active SYMBICORT 80-4.5 MCG/ACT AERO 2 puffs twice a day BUDESONIDE-FORMOTEROL FUMARATE 76316418467 No Longer Active Simon Castillo MD Active PREDNISONE 20 MG TAB 2 tabs daily for 4 days, 1 tab daily for 4 days, 1/2 tab daily for 4 days PREDNISONE 86317571137 No Longer Active Simon Castillo MD Active AMOXICILLIN 500 MG CAPS 2 po BID x 10 days AMOXICILLIN 67640841349 No Longer Active Simon Castillo MD Active METFORMIN HCL 1000 MG TABS 1 by mounth twice a day METFORMIN HCL 02530723032 No Longer Active Simon Castillo MD Active LUTEIN-ZEAXANTHIN 6-1 MG TABS Take 2 by mouth daily LUTEIN-ZEAXANTHIN 65585823933 Active Simon Castillo MD Active IBUPROFEN 800 MG TABS Take 1 tab every 6 hrs prn IBUPROFEN 35530322707 No Longer Active Simon Castillo MD Active GLYBURIDE 2.5 MG TABS Take one by mouth daily GLYBURIDE 32670597375 No Longer Active Simon Castillo MD Active LANCETS MISC 2 qd LANCETS 44727583558 Active Pamela Conde Active ACACIA CONTOUR TEST STRP Use with testing twice daily GLUCOSE BLOOD 36294337407 Active Simon Castillo MD Active GLYBURIDE 2.5 MG TABS Take one by mouth daily GLYBURIDE 2.5 MG TABS 643635 GLYBURIDE Inactive PREDNISONE 20 MG TAB 2 tabs daily for 4 days, 1 tab daily for 4 days, 1/2 tab daily for 4 days PREDNISONE 20 MG TAB 340960 PREDNISONE Inactive SYMBICORT 80-4.5 MCG/ACT AERO 2 puffs twice a day SYMBICORT 80-4.5 MCG/ACT AERO BUDESONIDE-FORMOTEROL FUMARATE Inactive FLONASE 50 MCG/ACT SUSP 2 puffs in each nostril daily FLONASE 50 MCG/ACT SUSP 2446668 FLUTICASONE PROPIONATE Inactive ATENOLOL 50 MG TABS Take one by mouth daily ATENOLOL 50 MG TABS 461554 ATENOLOL Inactive CETIRIZINE HCL 10 MG TABS 1 po qd as needed for allergies CETIRIZINE HCL 10 MG TABS 9842019 CETIRIZINE HCL Inactive LEVAQUIN 750 MG TABS 1 po qod x 5 doses LEVAQUIN 750 MG TABS 948424 LEVOFLOXACIN Inactive GLYBURIDE 5 MG TAB Take one by mouth daily GLYBURIDE 5 MG TAB 328739 GLYBURIDE Inactive PREDNISONE 5 MG TAB Take one po qod PREDNISONE 5 MG TAB 442143 PREDNISONE Inactive PREDNISONE 20 MG TAB 2 tabs daily for 5 days, then 1 daily for 5 days PREDNISONE 20 MG TAB 047285 PREDNISONE Inactive FLONASE 50 MCG/ACT SUSP 2 puffs in each nostril daily FLONASE 50 MCG/ACT SUSP 9526112 FLUTICASONE PROPIONATE Inactive SYMBICORT 160-4.5 MCG/ACT AERO 2 puff BID SYMBICORT 160-4.5 MCG/ACT AERO BUDESONIDE-FORMOTEROL FUMARATE Inactive PREDNISONE 5 MG TABS 1 po qod PREDNISONE 5 MG TABS 701145 PREDNISONE Inactive PREDNISONE 20 MG TAB 1 tablet daily for airway inflammation 02/25 PREDNISONE 20 MG TAB 603335 PREDNISONE Inactive SULFASALAZINE 500 MG ORAL TBEC 2 tabs BID SULFASALAZINE 500 MG ORAL TBEC 013163 SULFASALAZINE Inactive LASIX 20 MG TAB 1 tablet by mouth daily x 2 days LASIX 20 MG TAB 117063 FUROSEMIDE Inactive CLARITIN 10 MG TAB 1 tablet by mouth daily as needed for allergies CLARITIN 10 MG TAB 401903 LORATADINE Inactive CLOTRIMAZOLE 1 % EXT CREA Apply to affected area of feet twice daily PRN Rash CLOTRIMAZOLE 1 % EXT CREA 156804 CLOTRIMAZOLE Inactive AMOXICILLIN 500 MG CAPS 2 po BID x 10 days AMOXICILLIN 500 MG CAPS 656015 AMOXICILLIN Inactive GLYBURIDE 5 MG TAB Take one by mouth daily GLYBURIDE 5 MG TAB 237581 GLYBURIDE Inactive AZITHROMYCIN 250 MG TABS 2 po qd x 1 day, then 1 po qd x 4 days AZITHROMYCIN 250 MG TABS 1165461 AZITHROMYCIN Inactive PREDNISONE 20 MG TAB 2 tabs daily for 3 days, 1 tab daily for 3 days, 1/2 tab daily for 2 days PREDNISONE 20 MG TAB 107071 PREDNISONE Inactive PREDNISONE 20 MG TAB 2 tabs daily for 5 days, then 1 daily for 5 days, then 0.5 for 4 days PREDNISONE 20 MG TAB 753662 PREDNISONE Inactive AZITHROMYCIN 250 MG TABS 2 po qd x 1 day, then 1 po qd x 4 days AZITHROMYCIN 250 MG TABS 7908487 AZITHROMYCIN Inactive PREDNISONE 20 MG TAB 2 tabs daily for 3 days, 1 tab daily for 3 days, 1/2 tab daily for 2 days PREDNISONE 20 MG TAB 441101 PREDNISONE Inactive TRIAMCINOLONE ACETONIDE 0.1 % OINT Apply to affected areas TID for up to 2 weeks TRIAMCINOLONE ACETONIDE 0.1 % OINT 0297836 TRIAMCINOLONE ACETONIDE Inactive Immunizations Vaccine Administration Date [...] Panel - Chemistry cholesterol, serum 126 mg/dL 443-903 9224/02/07 triglyceride, serum, fasting 83 mg/dL 30-200 HDL cholesterol, serum 70 mg/dL 32-96 LDL cholesterol, serum 39 mg/dL 0-130 hemoglobin A1C, blood, as % of total hemoglobin 8.3 % 4.3-6.0 sodium, serum 141 mmol/L 653-707 4922/02/07 carbon dioxide, venous blood 26.0 mmol/L 21.0-32.0 [...] 0.00-1.00 Encounters Code Encounter Date Provider Facility CPT-18059 Level 4 Est. Patient 09:54:08 CDT Simon Castillo MD [facility] CPT-70883 Level 4 Est. Patient 16:11:23 CDT Simon Castillo MD [facility] CPT-32594 Level 4 Est. Patient 09:29:28 [employer] Simon Castillo MD [facility] CPT-02086 Level 3 Est. Patient 09:18:25 CDT Simon Castillo MD [facility] CPT-44508 Level 4 Est. Patient 11:51:23 CDT Simon Castillo MD [facility] CPT-04678 Level 4 Est. Patient 14:32:04 CDT Neto Oshea DO [facility] CPT-36532 Level 3 Est. Patient 08:41:43 CDT Giles Tatum [facility] [place] CPT-18938 Level 3 Est. Patient 08:40:53 CDT Giles Tatum [facility] CPT-19822 Level 3 Est. Patient 08:36:52 CDT Giles Tatum [facility] CPT-01003 Level 3 Est. Patient 09:08:44 CDT Giles Tatum [facility] [place] CPT-85833 Level 4 Est. Patient 09:17:32 [employer] Simon Castillo MD [facility] CPT-60978 Level 3 Est. Patient 11:22:22 [employer] Simon Castillo MD [facility] CPT-58041 Level 3 Est. Patient 09:02:14 CDT Simon Castillo MD [facility] CPT-44142 Level 4 Est. Patient 08:47:25 CDT Simon Castillo MD [facility] CPT-85133 Level 4 Est. Patient 10:17:25 CDT Simon Castillo MD [facility] CPT-21072 Level 4 Est. Patient 10:10:09 [employer] Simon Castillo MD [facility] CPT-74873 Level 4 Est. Patient 11:48:19 CDT Simon Castillo MD [facility] CPT-20454 Level 4 Est. Patient 08:59:29 CDT Simon Castillo MD [facility] CPT-27647 Level 4 Est. Patient 10:52:51 [employer]ING [employer] Simon Castillo MD [facility] CPT-17209 Level 4 Est. Patient 11:50:30 CDT Simon Castillo MD [facility] CPT-56909 Level 4 Est. Patient 09:54:46 CDT Simon Castillo MD [facility] CPT-91812 Level 3 Est. Patient 11:10:14 CDT Simon Castillo MD [facility] CPT-73812 Level 4 Est. Patient 09:44:02 CDT Simon Castillo MD [facility] CPT-55824 Level 3 Est. Patient 09:27:48 CDT Simon Castillo MD [facility] CPT-04594 Level 3 Est. Patient 09:58:06 [employer] Simon Castillo MD [facility] CPT-52246 Level 3 Est. Patient 09:51:35 CDT Simon Castillo MD [facility] Procedures Code Procedure Name Date Entry Date Standard Description CPT-G0439 [facility] Annual Wellness Exam 09:41:17 CDT CPT-32250 Lipid - LAB USE ONLY 17:15:33 CDT CPT-89832 HGBA1C - LAB USE ONLY 17:15:33 CDT CPT-52838 CMP - LAB USE ONLY 17:15:33 CDT CPT-15051 Venipuncture Draw Fee 17:15:33 CDT CPT-TCM Transitional Care Mgmt-High 11:01:28 [employer]SE SEINING HAND CPT-43449 First Vx - Ix admin for Medicare patients 17:33:39 CDT CPT-67246 Fluzone High-Dose Intramuscular Suspension 17:33:39 CDT CPT-G0438 Initial Annual Wellness Exam 08:57:30 CDT CPT-42992 Chest 2V Frontal and Lat - XRAY USE ONLY 09:00:14 CDT CPT-67032 Venipuncture Draw Fee 13:33:02 CDT CPT-59739 Bone Density 09:37:49 [employer] CPT-70393 Fluzone High Dose 17:20:42 CDT CPT-23970 Prevnar 13 17:20:42 CDT CPT-89916 Administration 2+ single or combination vaccines inc oral 17:20:42 CDT CPT-63831 Administration single or combination vaccine inc oral 17 :20:42 CDT CPT-15563 Hand comp min 3V 09:24:38 CDT CPT-39859 Venipuncture Draw Fee 08:07:29 [employer]ING [employer] CPT-87616 Venipuncture Draw Fee 09:02:51 [employer] SE[employer]ING [employer] CPT-66811 Venipuncture Draw Fee 12:45:08 [employer] CPT-52928 Venipuncture Draw Fee 09:25:31 CDT CPT-G0008 Administration of Influenza Virus Vaccine 14:41:29 CDT CPT-94138 Fluzone High-Dose Intramuscular Suspension 14:41:29 CDT CPT-Cryo Cryotherapy 11:48:20 CDT CPT-06106 EKG Trac and Interp 09:21:58 CDT CPT-27933 Chest 2V Frontal and Lat 09:21:58 CDT CPT-Cryo Cryotherapy 10:54:51 [employer]SE SE[employer]ING HAND CPT-87777 Administration 2+ single or combination vaccines inc oral 10:42:19 CDT CPT-30495 Administration single or combination vaccine inc oral 10 :42:19 CDT CPT-14759 Pneumovax 10:42:19 CDT CPT-73768 Influenza High Dose age 65+ 10:42:19 CDT CPT-87692 Administration single or combination vaccine inc oral 13 :18:54 CDT CPT-00062 Influenza High Dose age 65+ 13:18:54 CDT CPT-16926 Venipuncture Draw Fee 11:53:16 CDT CPT-86817 LS spine comp w obliq 11:03:13 CDT CPT-Cryo Cryotherapy 08:27:16 [employer]SE SE[employer]ING [employer] CPT-06242 Administration single or combination vaccine inc oral 10 :56:34 CDT CPT-28852 Influenza High Dose age 65+ 10:56:34 CDT
--- OUTSIDE RECORDS SUMMARY | 2018-03-31 18:30 | XMS REPORT | Clinical Summary ---
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 Frazell STORAGE ARCHITECT Acute pharyngitis Dyspnea 786.09 Active Jillina Frazell STORAGE ARCHITECT Other dyspnea and respiratory abnormality Peripheral edema 782.3 Active Jillina Frazell STORAGE ARCHITECT Edema FH DIABETES ICD-V18.0 Inactive Simon Castillo [...] tablet daily for airway inflammation 02/25 PREDNISONE 12905629647 No Longer Active Jillina Deepti HEMPHILL Active SULFASALAZINE 500 MG ORAL TBEC 2 tabs BID SULFASALAZINE 67809265878 Active Jillina Deepti HEMPHILL Active CLARITIN 10 MG TAB 1 tablet by mouth daily as needed for allergies LORATADINE 92662424071 Active Jillina Deepti HEMPHILL Active AZITHROMYCIN 250 MG TABS 2 po qd x 1 day, then 1 po qd x 4 days AZITHROMYCIN 32087918600 No Longer Active Jillina Fratico HEMPHILL Active GLIMEPIRIDE 2 MG ORAL TABS 1 po q a.m. GLIMEPIRIDE 99660147281 Active Simon Castillo MD Active HYDROCODONE-ACETAMINOPHEN 5-325 MG TABS 1 tab by mouth 8 hours as needed for pain HYDROCODONE-ACETAMINOPHEN 50550552056 Active Simon Castillo MD Active TRAMADOL HCL 50 MG TABS 1 po q6hr PRN Pain TRAMADOL HCL 49776209410 No Longer Active Simon Castillo MD Active PREDNISONE 5 MG TAB 1-2 tabs daily for rheumatoid arthritis PREDNISONE 89354760021 Active Simon Castillo MD Active PREDNISONE 5 MG TABS 1 po qod PREDNISONE 24564558753 No Longer Active Simon Castillo MD Active SYMBICORT 160-4.5 MCG/ACT AERO 2 puff BID BUDESONIDE- FORMOTEROL FUMARATE 82061666575 No Longer Active Simon Castillo MD Active FLONASE 50 MCG/ACT SUSP 2 puffs in each nostril daily FLUTICASONE PROPIONATE 81867320550 No Longer Active Simon Castillo MD Active PREDNISONE 20 MG TAB 2 tabs daily for 5 days, then 1 daily for 5 days PREDNISONE 09728049238 No Longer Active Simon Castillo MD Active PREDNISONE 20 MG TAB 2 tabs daily for 5 days, then 1 daily for 5 days, then 0.5 for 4 days PREDNISONE 09327961212 No Longer Active Simon Castillo MD Active CLOTRIMAZOLE 1 % EXT CREA Apply to affected area of feet twice daily PRN Rash CLOTRIMAZOLE 77045258766 Active Simon Castillo MD Active PREDNISONE 20 MG TAB 2 tabs daily for 3 days, 1 tab daily for 3 days, 1/2 tab daily for 2 days PREDNISONE 05715577377 No Longer Active Simon Castillo MD Active AZITHROMYCIN 250 MG TABS 2 po qd x 1 day, then 1 po qd x 4 days AZITHROMYCIN 08241708711 No Longer Active Simon Castillo MD Active LISINOPRIL 10 MG TABS 1 tablet by mouth daily LISINOPRIL 58001147061 Active Simon Castillo MD Active CARVEDILOL 6.25 MG TABS 1 po BID CARVEDILOL 01533095693 Active Simon Castillo MD Active LISINOPRIL-HYDROCHLOROTHIAZIDE 20-12.5 MG TABS 1/2 tab by mouth daily LISINOPRIL-HYDROCHLOROTHIAZIDE 30205003808 No Longer Active Simon Castillo MD Active TRAMADOL HCL 50 MG TABS 1-2 tablets every 6 hours as needed for pain TRAMADOL HCL 84589106247 Active Giles Tatum KANCHAN Active PREDNISONE 5 MG TAB Take one po qod PREDNISONE 77231237527 No Longer Active Simon Castillo MD Active GLYBURIDE 5 MG TAB Take one by mouth daily GLYBURIDE 12104514806 No Longer Active Simon Castillo MD Active LEVAQUIN 750 MG TABS 1 po qod x 5 doses LEVOFLOXACIN 23966133924 No Longer Active Simon Castillo MD Active CETIRIZINE HCL 10 MG TABS 1 po qd as needed for allergies CETIRIZINE HCL 93631928506 No Longer Active Simon Castillo MD Active FISH OIL 1000 MG CPDR 1 pill by mouth twice daily for cholesterol OMEGA -3 FATTY ACIDS 70138317108 Active Simon Castillo MD Active BILBERRY CAPS 1 tab daily BILBERRY (VACCINIUM MYRTILLUS) CAPS 51317952785 Active Simon Castillo MD Active ATENOLOL 50 MG TABS Take one by mouth daily ATENOLOL 93053292832 No Longer Active Simon Castillo MD Active FLONASE 50 MCG/ACT SUSP 2 puffs in each nostril daily FLUTICASONE PROPIONATE 58819231036 No Longer Active Simon Castillo MD Active GLYBURIDE 5 MG TAB Take one by mouth daily GLYBURIDE 73760383503 No Longer Active Simon Castillo MD Active SYMBICORT 80-4.5 MCG/ACT AERO 2 puffs twice a day BUDESONIDE-FORMOTEROL FUMARATE 91172129836 No Longer Active Simon Castillo MD Active PREDNISONE 20 MG TAB 2 tabs daily for 4 days, 1 tab daily for 4 days, 1/2 tab daily for 4 days PREDNISONE 58239264026 No Longer Active Simon Castillo MD Active AMOXICILLIN 500 MG CAPS 2 po BID x 10 days AMOXICILLIN 16760591792 No Longer Active Simon Castillo MD Active METFORMIN HCL 1000 MG TABS 1 by mounth twice a day METFORMIN HCL 21563473041 No Longer Active Simon Castillo MD Active LUTEIN-ZEAXANTHIN 6-1 MG TABS Take 2 by mouth daily LUTEIN-ZEAXANTHIN 65145682549 Active Simon Castillo MD Active IBUPROFEN 800 MG TABS Take 1 tab every 6 hrs prn IBUPROFEN 27540076381 No Longer Active Simon Castillo MD Active GLYBURIDE 2.5 MG TABS Take one by mouth daily GLYBURIDE 59921358970 No Longer Active Simon Castillo MD Active LANCETS MISC 2 qd LANCETS 89783509149 Active Pamela Conde Active ACACIA CONTOUR TEST STRP Use with testing twice daily GLUCOSE BLOOD 72969053000 Active Simon Castillo MD Active ACACIA ASPIRIN 325 MG TABS Take one by mouth daily ASPIRIN 90674680692 Active Pamela Conde Active GLYBURIDE 2.5 MG TABS Take one by mouth daily GLYBURIDE 2.5 MG TABS 239788 GLYBURIDE Inactive PREDNISONE 20 MG TAB 2 tabs daily for 4 days, 1 tab daily for 4 days, 1/2 tab daily for 4 days PREDNISONE 20 MG TAB 782797 PREDNISONE Inactive SYMBICORT 80-4.5 MCG/ACT AERO 2 puffs twice a day SYMBICORT 80-4.5 MCG/ACT AERO BUDESONIDE-FORMOTEROL FUMARATE Inactive FLONASE 50 MCG/ACT SUSP 2 puffs in each nostril daily FLONASE 50 MCG/ACT SUSP 319575 FLUTICASONE PROPIONATE Inactive ATENOLOL 50 MG TABS Take one by mouth daily ATENOLOL 50 MG TABS 620433 ATENOLOL Inactive CETIRIZINE HCL 10 MG TABS 1 po qd as needed for allergies CETIRIZINE HCL 10 MG TABS 3524443 CETIRIZINE HCL Inactive LEVAQUIN 750 MG TABS 1 po qod x 5 doses LEVAQUIN 750 MG TABS 954982 LEVOFLOXACIN Inactive GLYBURIDE 5 MG TAB Take one by mouth daily GLYBURIDE 5 MG TAB 722210 GLYBURIDE Inactive PREDNISONE 5 MG TAB Take one po qod PREDNISONE 5 MG TAB 364887 PREDNISONE Inactive PREDNISONE 20 MG TAB 2 tabs daily for 5 days, then 1 daily for 5 days PREDNISONE 20 MG TAB 731179 PREDNISONE Inactive FLONASE 50 MCG/ACT SUSP 2 puffs in each nostril daily FLONASE 50 MCG/ACT SUSP 237914 FLUTICASONE PROPIONATE Inactive SYMBICORT 160-4.5 MCG/ACT AERO 2 puff BID SYMBICORT 160-4.5 MCG/ACT AERO BUDESONIDE-FORMOTEROL FUMARATE Inactive PREDNISONE 5 MG TABS 1 po qod PREDNISONE 5 MG TABS 067581 PREDNISONE Inactive PREDNISONE 20 MG TAB 1 tablet daily for airway inflammation 02/25 PREDNISONE 20 MG TAB 148624 PREDNISONE Inactive AMOXICILLIN 500 MG CAPS 2 po BID x 10 days AMOXICILLIN 500 MG CAPS 373041 AMOXICILLIN Inactive GLYBURIDE 5 MG TAB Take one by mouth daily GLYBURIDE 5 MG TAB 746712 GLYBURIDE Inactive AZITHROMYCIN 250 MG TABS 2 po qd x 1 day, then 1 po qd x 4 days AZITHROMYCIN 250 MG TABS 6160161 AZITHROMYCIN Inactive PREDNISONE 20 MG TAB 2 tabs daily for 3 days, 1 tab daily for 3 days, 1/2 tab daily for 2 days PREDNISONE 20 MG TAB 568427 PREDNISONE Inactive PREDNISONE 20 MG TAB 2 tabs daily for 5 days, then 1 daily for 5 days, then 0.5 for 4 days PREDNISONE 20 MG TAB 673731 PREDNISONE Inactive AZITHROMYCIN 250 MG TABS 2 po qd x 1 day, then 1 po qd x 4 days AZITHROMYCIN 250 MG TABS 7807372 AZITHROMYCIN Inactive Immunizations Vaccine Administration Date Value [...] Panel - Chemistry sodium, serum 132 mmol/L 685-554 4093/10/26 carbon dioxide, venous blood 22.8 mmol/L 21.0-32.0 [...] Panel - Chemistry sodium, serum 139 mmol/L 657-525 1921/03/17 carbon dioxide, venous blood 29.0 mmol/L 21.0-32.0 [...] Rate - Chemistry sodium, serum 136 mmol/L 333-490 9338/09/18 carbon dioxide, venous blood 24.3 mmol/L 21.0-32.0 [...] HGBA1C - Chemistry sodium, serum 139 mmol/L 511-398 5705/07/09 potassium, serum 5.4 mmol/L 3.5-5.2 chloride, serum [...] 8.5 % 4.3-6.0 sodium, serum 137 mmol/L 390-462 2274/02/12 potassium, serum 5.1 mmol/L 3.5-5.2 chloride, serum 103 mmol/L 98-107 carbon dioxide, venous blood 24.4 mmol/L 21.0-32.0 blood glucose 261 mg/dL 65-110 calcium, serum 9.0 mg/dL 8.5-10.1 urea nitrogen, blood 44 mg/dL 7-18 creatinine, serum 2.37 mg/dL 0.55-1.30 Lab Report: Lipid Panel - Chemistry cholesterol, serum 139 mg/dL 136-444 0349/09/10 triglyceride, serum, fasting 176 mg/dL 30-200 HDL cholesterol, serum 45 mg/dL 32-96 LDL cholesterol, serum 59 mg/dL 0-130 Lab Report: MICROALBUMIN - Chemistry albumin/creatinine ratio, urine 30 - 300 mg/g mg/g{creat} 0-29 Lab Report: MICROALBUMIN - Lab microalbumin, urine 30 0-19 Lab Report: Uric Acid - Chemistry uric acid, serum 6.3 mg/dL 2.6-7.2 Encounters Code Encounter Date Provider Facility CPT-89666 Level 3 Est. Patient 08:41:43 CDT [facility] CPT-55816 Level 3 Est. Patient 08:40:53 CDT [facility] CPT-77821 Level 3 Est. Patient 08:36:52 CDT [facility] CPT-96189 Level 3 Est. Patient 09:08:44 CDT [facility] CPT-51879 Level 4 Est. Patient 09:17:32 MEDICAL RECORD TECHNICIAN Simon Castillo MD [facility] CPT-69522 Level 3 Est. Patient 11:22:22 MEDICAL RECORD TECHNICIAN Simon Castillo MD [facility] CPT-05238 Level 3 Est. Patient 09:02:14 CDT Simon Castillo MD [facility] CPT-15830 Level 4 Est. Patient 08:47:25 CDT Simon Castillo MD [facility] CPT-62337 Level 4 Est. Patient 10:17:25 CDT Simon Castillo MD [facility] CPT-62064 Level 4 Est. Patient 10:10:09 MEDICAL RECORD TECHNICIAN Simon Castillo MD [facility] CPT-55180 Level 4 Est. Patient 11:48:19 CDT Simon Castillo MD [facility] CPT-80828 Level 4 Est. Patient 08:59:29 CDT Simon Castillo MD [facility] CPT-57037 Level 4 Est. Patient 10:52:51 MEDICAL RECORD TECHNICIAN Simon Castillo MD [facility] CPT-92162 Level 4 Est. Patient 11:50:30 CDT Simon Castillo MD [facility] CPT-04866 Level 4 Est. Patient 09:54:46 CDT Simon Castillo MD [facility] CPT-61797 Level 3 Est. Patient 11:10:14 CDT Simon Castillo MD [facility] CPT-79362 Level 4 Est. Patient 09:44:02 CDT Simon Castillo MD [facility] CPT-71469 Level 3 Est. Patient 09:27:48 CDT Simon Castilol MD [facility] CPT-46583 Level 3 Est. Patient 09:58:06 MEDICAL RECORD TECHNICIAN Simon Castillo MD [facility] CPT-57131 Level 3 Est. Patient 09:51:35 CDT Simon Castillo MD [facility] Procedures Code Procedure Name Date Entry Date Standard Description CPT-96270 Chest 2V Frontal and Lat - XRAY USE ONLY 09:00:14 CDT CPT-10559 Venipuncture Draw Fee 13:33:02 CDT CPT-43337 Bone Density 09:37:49 MEDICAL RECORD TECHNICIAN CPT-79733 Fluzone High Dose 17:20:42 CDT CPT-07768 Prevnar 13 17:20:42 CDT CPT-79579 Administration 2+ single or combination vaccines inc oral 17:20:42 CDT CPT-46103 Administration single or combination vaccine inc oral 17 :20:42 CDT CPT-54781 Hand comp min 3V 09:24:38 CDT CPT-64529 Venipuncture Draw Fee 08:07:29 MEDICAL RECORD TECHNICIAN CPT-14780 Venipuncture Draw Fee 09:02:51 MEDICAL RECORD TECHNICIAN CPT-47686 Venipuncture Draw Fee 12:45:08 MEDICAL RECORD TECHNICIAN CPT-32084 Venipuncture Draw Fee 09:25:31 CDT CPT-G0008 Administration of Influenza Virus Vaccine 14:41:29 CDT CPT-21751 Fluzone High-Dose Intramuscular Suspension 14:41:29 CDT CPT-Cryo Cryotherapy 11:48:20 CDT CPT-55883 EKG Trac and Interp 09:21:58 CDT CPT-92313 Chest 2V Frontal and Lat 09:21:58 CDT CPT-Cryo Cryotherapy 10:54:51 MEDICAL RECORD TECHNICIAN CPT-01440 Administration 2+ single or combination vaccines inc oral 10:42:19 CDT CPT-17787 Administration single or combination vaccine inc oral 10 :42:19 CDT CPT-60805 Pneumovax 10:42:19 CDT CPT-35979 Influenza High Dose age 65+ 10:42:19 CDT CPT-17653 Administration single or combination vaccine inc oral 13 :18:54 CDT CPT-40273 Influenza High Dose age 65+ 13:18:54 CDT CPT-43740 Venipuncture Draw Fee 11:53:16 CDT CPT-11877 LS spine comp w obliq 11:03:13 CDT CPT-Cryo Cryotherapy 08:27:16 MEDICAL RECORD TECHNICIAN CPT-56941 Administration single or combination vaccine inc oral 10 :56:34 CDT CPT-83312 Influenza High Dose age 65+ 10:56:34 CDT
--- OUTSIDE RECORDS SUMMARY | 2018-03-31 18:31 | XMS REPORT | Clinical Summary ---
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 Simon Castillo MD Long-term [...] bilateral ICD-729.5 Kerry Castillo MD Steroid use, long-term ICD-V58.65 Kerry Castillo MD Hand pain, bilateral [...] 1 po BID x 7 days SULFAMETHOXAZOLE-TRIMETHOPRIM 13198728930 Active Simon Castillo MD Active AZITHROMYCIN 250 MG ORAL TABLET 2 po qd x 1, then 1 po qd x 4 AZITHROMYCIN 04840171511 No Longer Active Simon Castillo MD Active PROMETHAZINE-CODEINE 6.25-10 MG/5ML ORAL SYRUP 5ml po qHS PRN Cough PROMETHAZINE-CODEINE 14359470490 No Longer Active Simon Castillo MD Active SINGULAIR 10 MG ORAL TABLET 1 po qd PRN Asthma/Allergies MONTELUKAST SODIUM 38532774770 Active Simon Castillo MD Active PREDNISONE 20 MG ORAL TABLET 2 po qd x 5 days PREDNISONE 60231132291 No Longer Active Simon Castillo MD Active VIAGRA 100 MG ORAL TABLET 0.5 to 1 po qd PRN Erectile dysfunction SILDENAFIL CITRATE 93284292334 Active Simon Castillo MD Active LUTEIN-ZEAXANTHIN 6-1 MG ORAL TABLET 2 po qd LUTEIN- ZEAXANTHIN 13208148946 Active Simon Castillo MD Active BILBERRY CAPSULE 1 po qd BILBERRY (VACCINIUM MYRTILLUS) CAPS 80237021532 Active Simon Castillo MD Active TRAMADOL HCL 50 MG ORAL TABLET 1-2 tablets every 6 hours as needed for pain TRAMADOL HCL 79341785463 No Longer Active Simon Castillo MD Active HYDROCODONE-ACETAMINOPHEN 5-325 MG ORAL TABLET 1 tab by mouth 8 hours as needed for pain HYDROCODONE-ACETAMINOPHEN 39213271480 No Longer Active Simon Castillo MD Active BUMETANIDE 0.5 MG ORAL TABLET 1 po qd BUMETANIDE 95535780301 Active Simon Castillo MD Active AUGMENTIN 875-125 MG ORAL TABLET 1 po BID x 10 days AMOXICILLIN-POT CLAVULANATE 46332124030 No Longer Active Simon Castillo MD Active PIOGLITAZONE HCL 30 MG ORAL TABLET 1 po qd PIOGLITAZONE HCL 43951664707 Active Simon Castillo MD Active GLIMEPIRIDE 4 MG ORAL TABLET 1 po BID GLIMEPIRIDE 83067030987 Active Simon Castillo MD Active ASPIRIN EC 81 MG ORAL TABLET DELAYED RELEASE 1 po qd ASPIRIN 19617985478 Active Simon Castillo MD Active CLOTRIMAZOLE 1 % EXTERNAL CREAM Apply to affected area of feet twice daily PRN Rash CLOTRIMAZOLE 43454853033 No Longer Active Simon Castillo MD Active PREDNISONE 5 MG ORAL TABLET 1 po BID PREDNISONE 49432336161 Active Dolly MCDERMOTT Active FISH OIL 1000 MG ORAL CAPSULE DELAYED RELEASE 1 po BID OMEGA- 3 FATTY ACIDS 79468575585 Active Simon Castillo MD Active LISINOPRIL 10 MG ORAL TABLET 1 p qd LISINOPRIL 39676844401 Active Simon Castillo MD Active CLARITIN 10 MG ORAL TABLET 1 tablet by mouth daily as needed for allergies LORATADINE 07493039392 No Longer Active Simon Castillo MD Active TRIAMCINOLONE ACETONIDE 0.1 % EXTERNAL OINTMENT Apply to affected areas TID for up to 2 weeks TRIAMCINOLONE ACETONIDE 79735263659 No Longer Active Simon Castillo MD Active LASIX 20 MG ORAL TABLET 1 tablet by mouth daily x 2 days FUROSEMIDE 69220197451 No Longer Active Simon Castillo MD Active SULFASALAZINE 500 MG ORAL TABLET DELAYED RELEASE 2 tabs BID 02/26 SULFASALAZINE 50430118912 No Longer Active Neto Oshea DO Active PREDNISONE 20 MG ORAL TABLET 2 tabs daily for 3 days, 1 tab daily for 3 days, 1/2 tab daily for 2 days PREDNISONE 28112376207 No Longer Active Jillina Fratico HEMPHILL Active PREDNISONE 20 MG ORAL TABLET 1 tablet daily for airway inflammation PREDNISONE 86537901224 No Longer Active Jillina Frazell MEDICAL ASST Active AZITHROMYCIN 250 MG ORAL TABLET 2 po qd x 1 day, then 1 po qd x 4 days 01/28 AZITHROMYCIN 85420137268 No Longer Active Jillina Fraamayal MEDICAL ASST Active TRAMADOL HCL 50 MG ORAL TABLET 1 po q6hr PRN Pain TRAMADOL HCL 65025185373 No Longer Active Simon Castillo MD Active PREDNISONE 5 MG ORAL TABLET 1 po qod PREDNISONE 63221497342 No Longer Active Simon Castillo MD Active SYMBICORT 160-4.5 MCG/ACT INHALATION AEROSOL 2 puff BID BUDESONIDE-FORMOTEROL FUMARATE 68524075941 No Longer Active Simon Castillo MD Active FLONASE 50 MCG/ACT NASAL SUSPENSION 2 puffs in each nostril daily FLUTICASONE PROPIONATE 30526599402 No Longer Active Simon Castilol MD Active PREDNISONE 20 MG ORAL TABLET 2 tabs daily for 5 days, then 1 daily for 5 days PREDNISONE 79540991315 No Longer Active Simon Castillo MD Active PREDNISONE 20 MG ORAL TABLET 2 tabs daily for 5 days, then 1 daily for 5 days , then 0.5 for 4 days PREDNISONE 57366113347 No Longer Active Simon Castillo MD Active PREDNISONE 20 MG ORAL TABLET 2 tabs daily for 3 days, 1 tab daily for 3 days, 1/2 tab daily for 2 days PREDNISONE 35942617414 No Longer Active Simon Castillo MD Active AZITHROMYCIN 250 MG ORAL TABLET 2 po qd x 1 day, then 1 po qd x 4 days 03/16 AZITHROMYCIN 10025194971 No Longer Active Simon Castillo MD Active CARVEDILOL 6.25 MG ORAL TABLET 1 po BID CARVEDILOL 38660382534 Active Simon Castillo MD Active LISINOPRIL-HYDROCHLOROTHIAZIDE 20-12.5 MG ORAL TABLET 1/2 tab by mouth daily LISINOPRIL-HYDROCHLOROTHIAZIDE 60647961827 No Longer Active Simon Castillo MD Active PREDNISONE 5 MG ORAL TABLET Take one po qod PREDNISONE 09081240587 No Longer Active Simon Castillo MD Active GLYBURIDE 5 MG ORAL TABLET Take one by mouth daily GLYBURIDE 65484829614 No Longer Active Simon Castillo MD Active LEVAQUIN 750 MG ORAL TABLET 1 po qod x 5 doses LEVOFLOXACIN 83397791676 No Longer Active Simon Castillo MD Active CETIRIZINE HCL 10 MG ORAL TABLET 1 po qd as needed for allergies CETIRIZINE HCL 37568555739 No Longer Active Simon Castillo MD Active ATENOLOL 50 MG ORAL TABLET Take one by mouth daily ATENOLOL 76364403663 No Longer Active Simon Castillo MD Active FLONASE 50 MCG/ACT NASAL SUSPENSION 2 puffs in each nostril daily FLUTICASONE PROPIONATE 20041329158 No Longer Active Simon Castillo MD Active GLYBURIDE 5 MG ORAL TABLET Take one by mouth daily GLYBURIDE 05303183974 No Longer Active Simon Castillo MD Active SYMBICORT 80-4.5 MCG/ACT INHALATION AEROSOL 2 puffs twice a day BUDESONIDE-FORMOTEROL FUMARATE 31569587452 No Longer Active Simon Castillo MD Active PREDNISONE 20 MG ORAL TABLET 2 tabs daily for 4 days, 1 tab daily for 4 days, 1/2 tab daily for 4 days PREDNISONE 95660928975 No Longer Active Simon Castillo MD Active AMOXICILLIN 500 MG ORAL CAPSULE 2 po BID x 10 days AMOXICILLIN 57540869303 No Longer Active Simon Castillo MD Active METFORMIN HCL 1000 MG ORAL TABLET 1 by mounth twice a day METFORMIN HCL 81839103367 No Longer Active Simon Castillo MD Active IBUPROFEN 800 MG ORAL TABLET Take 1 tab every 6 hrs prn IBUPROFEN 64406076215 No Longer Active Simon Castillo MD Active GLYBURIDE 2.5 MG ORAL TABLET Take one by mouth daily GLYBURIDE 85748459220 No Longer Active Simon Castillo MD Active LANCETS 2 qd LANCETS 14481905409 Active Pamela Conde Active ACACIA CONTOUR TEST IN VITRO STRIP Use with testing twice daily GLUCOSE BLOOD 65128041896 Active Simon Castillo MD Active GLYBURIDE 2.5 MG ORAL TABLET Take one by mouth daily GLYBURIDE 2.5 MG ORAL TABLET 495672 GLYBURIDE Inactive PREDNISONE 20 MG ORAL TABLET 2 tabs daily for 4 days, 1 tab daily for 4 days, 1/2 tab daily for 4 days PREDNISONE 20 MG ORAL TABLET 442912 PREDNISONE Inactive SYMBICORT 80-4.5 MCG/ACT INHALATION AEROSOL 2 puffs twice a day SYMBICORT 80-4.5 MCG/ACT INHALATION AEROSOL BUDESONIDE- FORMOTEROL FUMARATE Inactive FLONASE 50 MCG/ACT NASAL SUSPENSION 2 puffs in each nostril daily FLONASE 50 MCG/ACT NASAL SUSPENSION 0995802 FLUTICASONE PROPIONATE Inactive ATENOLOL 50 MG ORAL TABLET Take one by mouth daily ATENOLOL 50 MG ORAL TABLET 179394 ATENOLOL Inactive CETIRIZINE HCL 10 MG ORAL TABLET 1 po qd as needed for allergies CETIRIZINE HCL 10 MG ORAL TABLET 1988709 CETIRIZINE HCL Inactive LEVAQUIN 750 MG ORAL TABLET 1 po qod x 5 doses LEVAQUIN 750 MG ORAL TABLET 713998 LEVOFLOXACIN Inactive GLYBURIDE 5 MG ORAL TABLET Take one by mouth daily GLYBURIDE 5 MG ORAL TABLET 134415 GLYBURIDE Inactive PREDNISONE 5 MG ORAL TABLET Take one po qod PREDNISONE 5 MG ORAL TABLET 588507 PREDNISONE Inactive PREDNISONE 20 MG ORAL TABLET 2 tabs daily for 5 days, then 1 daily for 5 days PREDNISONE 20 MG ORAL TABLET 768536 PREDNISONE Inactive FLONASE 50 MCG/ACT NASAL SUSPENSION 2 puffs in each nostril daily FLONASE 50 MCG/ACT NASAL SUSPENSION 8468407 FLUTICASONE PROPIONATE Inactive SYMBICORT 160-4.5 MCG/ACT INHALATION AEROSOL 2 puff BID SYMBICORT 160-4.5 MCG/ACT INHALATION AEROSOL BUDESONIDE-FORMOTEROL FUMARATE Inactive PREDNISONE 5 MG ORAL TABLET 1 po qod PREDNISONE 5 MG ORAL TABLET 604430 PREDNISONE Inactive PREDNISONE 20 MG ORAL TABLET 1 tablet daily for airway inflammation PREDNISONE 20 MG ORAL TABLET 160830 PREDNISONE Inactive SULFASALAZINE 500 MG ORAL TABLET DELAYED RELEASE 2 tabs BID 02/26 SULFASALAZINE 500 MG ORAL TABLET DELAYED RELEASE 816093 SULFASALAZINE Inactive LASIX 20 MG ORAL TABLET 1 tablet by mouth daily x 2 days LASIX 20 MG ORAL TABLET 136159 FUROSEMIDE Inactive CLARITIN 10 MG ORAL TABLET 1 tablet by mouth daily as needed for allergies CLARITIN 10 MG ORAL TABLET 304679 LORATADINE Inactive CLOTRIMAZOLE 1 % EXTERNAL CREAM Apply to affected area of feet twice daily PRN Rash CLOTRIMAZOLE 1 % EXTERNAL CREAM 118417 CLOTRIMAZOLE Inactive HYDROCODONE-ACETAMINOPHEN 5-325 MG ORAL TABLET 1 tab by mouth 8 hours as needed for pain HYDROCODONE-ACETAMINOPHEN 5-325 MG ORAL TABLET 829818 HYDROCODONE-ACETAMINOPHEN Inactive TRAMADOL HCL 50 MG ORAL TABLET 1-2 tablets every 6 hours as needed for pain TRAMADOL HCL 50 MG ORAL TABLET 690499 TRAMADOL HCL Inactive PROMETHAZINE-CODEINE 6.25-10 MG/5ML ORAL SYRUP 5ml po qHS PRN Cough PROMETHAZINE-CODEINE 6.25-10 MG/5ML ORAL SYRUP 018278 PROMETHAZINE-CODEINE Inactive AZITHROMYCIN 250 MG ORAL TABLET 2 po qd x 1, then 1 po qd x 4 AZITHROMYCIN 250 MG ORAL TABLET 160457 AZITHROMYCIN Inactive AMOXICILLIN 500 MG ORAL CAPSULE 2 po BID x 10 days AMOXICILLIN 500 MG ORAL CAPSULE 169457 AMOXICILLIN Inactive GLYBURIDE 5 MG ORAL TABLET Take one by mouth daily GLYBURIDE 5 MG ORAL TABLET 810095 GLYBURIDE Inactive AZITHROMYCIN 250 MG ORAL TABLET 2 po qd x 1 day, then 1 po qd x 4 days 03/16 AZITHROMYCIN 250 MG ORAL TABLET 635846 AZITHROMYCIN Inactive PREDNISONE 20 MG ORAL TABLET 2 tabs daily for 3 days, 1 tab daily for 3 days, 1/2 tab daily for 2 days PREDNISONE 20 MG ORAL TABLET 530582 PREDNISONE Inactive PREDNISONE 20 MG ORAL TABLET 2 tabs daily for 5 days, then 1 daily for 5 days , then 0.5 for 4 days PREDNISONE 20 MG ORAL TABLET 136384 PREDNISONE Inactive AZITHROMYCIN 250 MG ORAL TABLET 2 po qd x 1 day, then 1 po qd x 4 days 01/28 AZITHROMYCIN 250 MG ORAL TABLET 806100 AZITHROMYCIN Inactive PREDNISONE 20 MG ORAL TABLET 2 tabs daily for 3 days, 1 tab daily for 3 days, 1/2 tab daily for 2 days PREDNISONE 20 MG ORAL TABLET 427501 PREDNISONE Inactive TRIAMCINOLONE ACETONIDE 0.1 % EXTERNAL OINTMENT Apply to affected areas TID for up to 2 weeks TRIAMCINOLONE ACETONIDE 0.1 % EXTERNAL OINTMENT 8584449 TRIAMCINOLONE ACETONIDE Inactive AUGMENTIN 875-125 MG ORAL TABLET 1 po BID x 10 days AUGMENTIN 875-125 MG ORAL TABLET 136196 AMOXICILLIN-POT CLAVULANATE Inactive PREDNISONE 20 MG ORAL TABLET 2 po qd x 5 days PREDNISONE 20 MG ORAL TABLET 676458 PREDNISONE Inactive Immunizations Vaccine Administration Date Value [...] Peptide - Chemistry sodium, serum 142 mmol/L 147-253 8150/07/18 potassium, serum 5.0 mmol/L 3.5-5.2 chloride, serum [...] Rate - Chemistry sodium, serum 142 mmol/L 463-681 6200/02/27 carbon dioxide, venous blood 26.2 mmol/L 21.0-32.0 [...] Panel - Chemistry sodium, serum 140 mmol/L 434-158 0212/07/13 carbon dioxide, venous blood 23.7 mmol/L 21.0-32.0 [...] dipstick Negative Negative sodium, serum 142 mmol/L 933-973 0214/01/08 carbon dioxide, venous blood 23.9 mmol/L 21.0-32.0 [...] Negative;Positive Encounters Code Encounter Date Provider Facility CPT-13716 Level 4 Est. Patient 11:32:07 CDT Simon Castillo MD [facility] CPT-53582 Level 3 Est. Patient 11:36:15 CDT Simon Castillo MD [facility] CPT-91721 Level 4 Est. Patient 14:06:23 MAIL DISTRIBUTION SCHEME EXAMINER Simon Castillo MD [facility] CPT-28900 Level 3 Est. Patient 12:04:38 MAIL DISTRIBUTION SCHEME EXAMINER Giles Tatum [facility] CPT-09288 Level 3 Est. Patient 11:57:09 MAIL DISTRIBUTION SCHEME EXAMINER Giles Tatum [facility] CPT-86127 Level 3 Est. Patient 11:48:57 MAIL DISTRIBUTION SCHEME EXAMINER Giles Tatum [facility] CPT-08964 Level 4 Est. Patient 09:54:36 CDT Simon Castillo MD [facility] CPT-16337 Level 4 Est. Patient 08:48:38 CDT Simon Castillo MD [facility] CPT-05893 Level 4 Est. Patient 09:54:08 CDT Siomn Castillo MD [facility] CPT-27550 Level 4 Est. Patient 16:11:23 CDT Simon Castillo MD [facility] CPT-11451 Level 4 Est. Patient 09:29:28 MAIL DISTRIBUTION SCHEME EXAMINER Simon Castillo MD [facility] CPT-50834 Level 3 Est. Patient 09:18:25 CDT Simon Castillo MD [facility] CPT-41887 Level 4 Est. Patient 11:51:23 CDT Simon Castillo MD [facility] CPT-54508 Level 4 Est. Patient 14:32:04 CDT Neto Oshea DO [facility] CPT-24292 Level 3 Est. Patient 08:41:43 CDT Giles Salcidol [facility] CPT-53458 Level 3 Est. Patient 08:40:53 CDT Jillina Frazell [facility] CPT-38746 Level 3 Est. Patient 08:36:52 CDT Jillina Frazell [facility] CPT-37972 Level 3 Est. Patient 09:08:44 CDT Giles Nashamayal [facility] CPT-01366 Level 4 Est. Patient 09:17:32 MAIL DISTRIBUTION SCHEME EXAMINER Simon Castillo MD [facility] CPT-27374 Level 3 Est. Patient 11:22:22 MAIL DISTRIBUTION SCHEME EXAMINER Simon Castillo MD [facility] CPT-09174 Level 3 Est. Patient 09:02:14 CDT Simon Castillo MD [facility] CPT-70255 Level 4 Est. Patient 08:47:25 CDT Simon Castillo MD [facility] CPT-71328 Level 4 Est. Patient 10:17:25 CDT Simon Castillo MD [facility] CPT-29321 Level 4 Est. Patient 10:10:09 MAIL DISTRIBUTION SCHEME EXAMINER Simon Castillo MD [facility] CPT-71361 Level 4 Est. Patient 11:48:19 CDT Simon Castillo MD [facility] CPT-99781 Level 4 Est. Patient 08:59:29 CDT Simon Castillo MD [facility] CPT-75601 Level 4 Est. Patient 10:52:51 MAIL DISTRIBUTION SCHEME EXAMINER Simon Castillo MD [facility] CPT-84192 Level 4 Est. Patient 11:50:30 CDT Simon Castillo MD [facility] CPT-70355 Level 4 Est. Patient 09:54:46 CDT Simon Castillo MD [facility] CPT-13887 Level 3 Est. Patient 11:10:14 CDT Simon Castillo MD [facility] CPT-83924 Level 4 Est. Patient 09:44:02 CDT Simon Castillo MD [facility] CPT-83309 Level 3 Est. Patient 09:27:48 CDT Simon Castillo MD [facility] CPT-75876 Level 3 Est. Patient 09:58:06 MAIL DISTRIBUTION SCHEME EXAMINER Simon Castillo MD [facility] CPT-61296 Level 3 Est. Patient 09:51:35 CDT Simon Castillo MD [facility] Procedures Code Procedure Name Date Entry Date Standard Description CPT-67428 EKG Trac and Interp - XRAY USE ONLY 11:41:45 CDT 02/23 CPT-31042 Chest, 2 views 11:41:45 CDT CPT-88297 EKG Trac and Interp - XRAY USE ONLY 12:19:18 MAIL DISTRIBUTION SCHEME EXAMINER 09/29 CPT-76516 Chest, 2 views 12:19:17 MAIL DISTRIBUTION SCHEME EXAMINER CPT-Cryo Cryotherapy 09:54:37 CDT CPT-71266 First Vx - Ix admin for Medicare patients 09:13:10 CDT CPT-13181 Fluzone High-Dose Intramuscular Suspension 09:13:10 CDT CPT-G0439 Subsequent Annual Wellness Exam 09:41:17 CDT CPT-07626 Lipid - LAB USE ONLY 17:15:33 CDT CPT-39108 HGBA1C - LAB USE ONLY 17:15:33 CDT CPT-04160 CMP - LAB USE ONLY 17:15:33 CDT CPT-48042 Venipuncture Draw Fee 17:15:33 CDT [facility] Transitional Care Mgmt-High 11:01:28 MAIL DISTRIBUTION SCHEME EXAMINER CPT-98357 First Vx - Ix admin for Medicare patients 17:33:39 CDT CPT-78573 Fluzone High-Dose Intramuscular Suspension 17:33:39 CDT CPT-G0438 Initial Annual Wellness Exam 08:57:30 CDT CPT-84977 Chest 2V Frontal and Lat - XRAY USE ONLY 09:00:14 CDT CPT-61871 Venipuncture Draw Fee 13:33:02 CDT CPT-97156 Bone Density 09:37:49 MAIL DISTRIBUTION SCHEME EXAMINER CPT-17854 Fluzone High Dose 17:20:42 CDT CPT-27601 Prevnar 13 17:20:42 CDT CPT-59421 Administration 2+ single or combination vaccines inc oral 17:20:42 CDT CPT-48385 Administration single or combination vaccine inc oral 17 :20:42 CDT CPT-16846 Hand comp min 3V 09:24:38 CDT CPT-81722 Venipuncture Draw Fee 08:07:29 MAIL DISTRIBUTION SCHEME EXAMINER CPT-03791 Venipuncture Draw Fee 09:02:51 MAIL DISTRIBUTION SCHEME EXAMINER CPT-44769 Venipuncture Draw Fee 12:45:08 MAIL DISTRIBUTION SCHEME EXAMINER CPT-12435 Venipuncture Draw Fee 09:25:31 CDT CPT-G0008 Administration of Influenza Virus Vaccine 14:41:29 CDT CPT-80805 Fluzone High-Dose Intramuscular Suspension 14:41:29 CDT CPT-Cryo Cryotherapy 11:48:20 CDT CPT-44012 EKG Trac and Interp 09:21:58 CDT CPT-63531 Chest 2V Frontal and Lat 09:21:58 CDT CPT-Cryo Cryotherapy 10:54:51 MAIL DISTRIBUTION SCHEME EXAMINER CPT-14691 Administration 2+ single or combination vaccines inc oral 10:42:19 CDT CPT-64394 Administration single or combination vaccine inc oral 10 :42:19 CDT CPT-90751 Pneumovax 10:42:19 CDT CPT-66123 Influenza High Dose age 65+ 10:42:19 CDT CPT-80749 Administration single or combination vaccine inc oral 13 :18:54 CDT CPT-77059 Influenza High Dose age 65+ 13:18:54 CDT CPT-25623 Venipuncture Draw Fee 11:53:16 CDT CPT-51063 LS spine comp w obliq 11:03:13 CDT CPT-Cryo Cryotherapy 08:27:16 MAIL DISTRIBUTION SCHEME EXAMINER CPT-72220 Administration single or combination vaccine inc oral 10 :56:34 CDT CPT-86207 Influenza High Dose age 65+ 10:56:34 CDT
--- OUTSIDE RECORDS SUMMARY | 2018-03-31 18:38 | XMS REPORT | Clinical Summary ---
Author Author Admin, E Organization [employer] Address Unknown Phone Unavailable Allergies, Adverse [...] Castillo MD Rheumatoid arthritis Steroid use, terminal computer operator V58.65 Resolved Simon Castillo MD Long-term [...] ICD-729.5 Kerry Castillo MD Steroid use, terminal computer operator ICD-V58.65 Inactive Simon Castillo MD Hand [...] MG ORAL TABS 1 po BID GLIMEPIRIDE 66998103460 Active Simon Castillo MD Active ASPIRIN EC 81 MG ORAL TBEC 1 po qd ASPIRIN 89564799929 Active Simon Castillo MD Active CLOTRIMAZOLE 1 % EXT CREA Apply to affected area of feet twice daily PRN Rash CLOTRIMAZOLE 10509737988 No Longer Active Simon Castillo MD Active PREDNISONE 5 MG TAB 1 po BID PREDNISONE 04759458254 Active Simon Castillo MD Active FISH OIL 1000 MG CPDR 1 po BID OMEGA-3 FATTY ACIDS 38163290449 Active Simon Castillo MD Active LISINOPRIL 10 MG TABS 1 p qd LISINOPRIL 83603936975 Active Simon Castillo MD Active CLARITIN 10 MG TAB 1 tablet by mouth daily as needed for allergies LORATADINE 49663732936 No Longer Active Simon Castillo MD Active TRIAMCINOLONE ACETONIDE 0.1 % OINT Apply to affected areas TID for up to 2 weeks TRIAMCINOLONE ACETONIDE 71864722054 No Longer Active Simon Castillo MD Active LASIX 20 MG TAB 1 tablet by mouth daily x 2 days FUROSEMIDE 80889239231 No Longer Active Simon Castillo MD Active SULFASALAZINE 500 MG ORAL TBEC 2 tabs BID SULFASALAZINE 76917073005 No Longer Active Neto Oshea DO Active PREDNISONE 20 MG TAB 2 tabs daily for 3 days, 1 tab daily for 3 days, 1/2 tab daily for 2 days PREDNISONE 99686273713 No Longer Active Jillina Frazell DAIRY LABORATORY TECHNICIAN Active PREDNISONE 20 MG TAB 1 tablet daily for airway inflammation 02/25 PREDNISONE 38949221989 No Longer Active Jillina Frazell DAIRY LABORATORY TECHNICIAN Active AZITHROMYCIN 250 MG TABS 2 po qd x 1 day, then 1 po qd x 4 days AZITHROMYCIN 45354323394 No Longer Active Jillina Frazell DAIRY LABORATORY TECHNICIAN Active HYDROCODONE-ACETAMINOPHEN 5-325 MG TABS 1 tab by mouth 8 hours as needed for pain HYDROCODONE-ACETAMINOPHEN 17781026754 Active Simon Castillo MD Active TRAMADOL HCL 50 MG TABS 1 po q6hr PRN Pain TRAMADOL HCL 28729600036 No Longer Active Simon Castillo MD Active PREDNISONE 5 MG TABS 1 po qod PREDNISONE 96583496470 No Longer Active Simon Castillo MD Active SYMBICORT 160-4.5 MCG/ACT AERO 2 puff BID BUDESONIDE- FORMOTEROL FUMARATE 98244892890 No Longer Active Simon Castillo MD Active FLONASE 50 MCG/ACT SUSP 2 puffs in each nostril daily FLUTICASONE PROPIONATE 28851080672 No Longer Active Simon Castillo MD Active PREDNISONE 20 MG TAB 2 tabs daily for 5 days, then 1 daily for 5 days PREDNISONE 88777768032 No Longer Active Simon Castillo MD Active PREDNISONE 20 MG TAB 2 tabs daily for 5 days, then 1 daily for 5 days, then 0.5 for 4 days PREDNISONE 99173720862 No Longer Active Simon Castillo MD Active PREDNISONE 20 MG TAB 2 tabs daily for 3 days, 1 tab daily for 3 days, 1/2 tab daily for 2 days PREDNISONE 07275303116 No Longer Active Simon Castillo MD Active AZITHROMYCIN 250 MG TABS 2 po qd x 1 day, then 1 po qd x 4 days AZITHROMYCIN 02896840281 No Longer Active Simon Castillo MD Active CARVEDILOL 6.25 MG TABS 1 po BID CARVEDILOL 58367489556 Active Simon Castillo MD Active LISINOPRIL-HYDROCHLOROTHIAZIDE 20-12.5 MG TABS 1/2 tab by mouth daily LISINOPRIL-HYDROCHLOROTHIAZIDE 29854658647 No Longer Active Simon Castillo MD Active TRAMADOL HCL 50 MG TABS 1-2 tablets every 6 hours as needed for pain TRAMADOL HCL 79632822618 Active Giles Tatum APRN Active PREDNISONE 5 MG TAB Take one po qod PREDNISONE 32260491314 No Longer Active Simon Castillo MD Active GLYBURIDE 5 MG TAB Take one by mouth daily GLYBURIDE 27434499944 No Longer Active Simon Castillo MD Active LEVAQUIN 750 MG TABS 1 po qod x 5 doses LEVOFLOXACIN 90825528026 No Longer Active Simon Castillo MD Active CETIRIZINE HCL 10 MG TABS 1 po qd as needed for allergies CETIRIZINE HCL 60455324005 No Longer Active Simon Castillo MD Active BILBERRY CAPS 1 tab daily BILBERRY (VACCINIUM MYRTILLUS) CAPS 96996768695 Active Simon Castillo MD Active ATENOLOL 50 MG TABS Take one by mouth daily ATENOLOL 42720527547 No Longer Active Simon Castillo MD Active FLONASE 50 MCG/ACT SUSP 2 puffs in each nostril daily FLUTICASONE PROPIONATE 68803409366 No Longer Active Simon Castillo MD Active GLYBURIDE 5 MG TAB Take one by mouth daily GLYBURIDE 63416713430 No Longer Active Simon Castillo MD Active SYMBICORT 80-4.5 MCG/ACT AERO 2 puffs twice a day BUDESONIDE-FORMOTEROL FUMARATE 68025918776 No Longer Active Simon Castillo MD Active PREDNISONE 20 MG TAB 2 tabs daily for 4 days, 1 tab daily for 4 days, 1/2 tab daily for 4 days PREDNISONE 80922259410 No Longer Active Simon Castillo MD Active AMOXICILLIN 500 MG CAPS 2 po BID x 10 days AMOXICILLIN 73854131464 No Longer Active Simon Castillo MD Active METFORMIN HCL 1000 MG TABS 1 by mount twice a day METFORMIN HCL 50319736763 No Longer Active Simon Castillo MD Active LUTEIN-ZEAXANTHIN 6-1 MG TABS Take 2 by mouth daily LUTEIN-ZEAXANTHIN 59814505322 Active Simon Castillo MD Active IBUPROFEN 800 MG TABS Take 1 tab every 6 hrs prn IBUPROFEN 43757123246 No Longer Active Simon Castillo MD Active GLYBURIDE 2.5 MG TABS Take one by mouth daily GLYBURIDE 10120493145 No Longer Active Simno Castillo MD Active LANCETS MISC 2 qd LANCETS 89402731647 Active Pamela Conde Active ACACIA CONTOUR TEST STRP Use with testing twice daily GLUCOSE BLOOD 75749088890 Active Simon Castillo MD Active GLYBURIDE 2.5 MG TABS Take one by mouth daily GLYBURIDE 2.5 MG TABS 042755 GLYBURIDE Inactive PREDNISONE 20 MG TAB 2 tabs daily for 4 days, 1 tab daily for 4 days, 1/2 tab daily for 4 days PREDNISONE 20 MG TAB 762387 PREDNISONE Inactive SYMBICORT 80-4.5 MCG/ACT AERO 2 puffs twice a day SYMBICORT 80-4.5 MCG/ACT AERO BUDESONIDE-FORMOTEROL FUMARATE Inactive FLONASE 50 MCG/ACT SUSP 2 puffs in each nostril daily FLONASE 50 MCG/ACT SUSP FLUTICASONE PROPIONATE Inactive ATENOLOL 50 MG TABS Take one by mouth daily ATENOLOL 50 MG TABS 779251 ATENOLOL Inactive CETIRIZINE HCL 10 MG TABS 1 po qd as needed for allergies CETIRIZINE HCL 10 MG TABS 5346824 CETIRIZINE HCL Inactive LEVAQUIN 750 MG TABS 1 po qod x 5 doses LEVAQUIN 750 MG TABS 356399 LEVOFLOXACIN Inactive GLYBURIDE 5 MG TAB Take one by mouth daily GLYBURIDE 5 MG TAB 945540 GLYBURIDE Inactive PREDNISONE 5 MG TAB Take one po qod PREDNISONE 5 MG TAB 623021 PREDNISONE Inactive PREDNISONE 20 MG TAB 2 tabs daily for 5 days, then 1 daily for 5 days PREDNISONE 20 MG TAB 744741 PREDNISONE Inactive FLONASE 50 MCG/ACT SUSP 2 puffs in each nostril daily FLONASE 50 MCG/ACT SUSP FLUTICASONE PROPIONATE Inactive SYMBICORT 160-4.5 MCG/ACT AERO 2 puff BID SYMBICORT 160-4.5 MCG/ACT AERO BUDESONIDE-FORMOTEROL FUMARATE Inactive PREDNISONE 5 MG TABS 1 po qod PREDNISONE 5 MG TABS 015409 PREDNISONE Inactive PREDNISONE 20 MG TAB 1 tablet daily for airway inflammation 02/25 PREDNISONE 20 MG TAB 642256 PREDNISONE Inactive SULFASALAZINE 500 MG ORAL TBEC 2 tabs BID SULFASALAZINE 500 MG ORAL TBEC 580541 SULFASALAZINE Inactive LASIX 20 MG TAB 1 tablet by mouth daily x 2 days LASIX 20 MG TAB 016769 FUROSEMIDE Inactive CLARITIN 10 MG TAB 1 tablet by mouth daily as needed for allergies CLARITIN 10 MG TAB 992864 LORATADINE Inactive CLOTRIMAZOLE 1 % EXT CREA Apply to affected area of feet twice daily PRN Rash CLOTRIMAZOLE 1 % EXT CREA 854397 CLOTRIMAZOLE Inactive AMOXICILLIN 500 MG CAPS 2 po BID x 10 days AMOXICILLIN 500 MG CAPS 659758 AMOXICILLIN Inactive GLYBURIDE 5 MG TAB Take one by mouth daily GLYBURIDE 5 MG TAB 699663 GLYBURIDE Inactive AZITHROMYCIN 250 MG TABS 2 po qd x 1 day, then 1 po qd x 4 days AZITHROMYCIN 250 MG TABS 6159699 AZITHROMYCIN Inactive PREDNISONE 20 MG TAB 2 tabs daily for 3 days, 1 tab daily for 3 days, 1/2 tab daily for 2 days PREDNISONE 20 MG TAB 925639 PREDNISONE Inactive PREDNISONE 20 MG TAB 2 tabs daily for 5 days, then 1 daily for 5 days, then 0.5 for 4 days PREDNISONE 20 MG TAB 600103 PREDNISONE Inactive AZITHROMYCIN 250 MG TABS 2 po qd x 1 day, then 1 po qd x 4 days AZITHROMYCIN 250 MG TABS 3332273 AZITHROMYCIN Inactive PREDNISONE 20 MG TAB 2 tabs daily for 3 days, 1 tab daily for 3 days, 1/2 tab daily for 2 days PREDNISONE 20 MG TAB 314124 PREDNISONE Inactive TRIAMCINOLONE ACETONIDE 0.1 % OINT Apply to affected areas TID for up to 2 weeks TRIAMCINOLONE ACETONIDE 0.1 % OINT 9028724 TRIAMCINOLONE ACETONIDE Inactive Immunizations Vaccine Administration Date [...] Panel - Chemistry sodium, serum 137 mmol/L 080-949 7726/06/06 carbon dioxide, venous blood 24.9 mmol/L 21.0-32.0 [...] Panel - Chemistry sodium, serum 139 mmol/L 313-271 5264/03/17 carbon dioxide, venous blood 29.0 mmol/L 21.0-32.0 [...] Panel - Chemistry cholesterol, serum 126 mg/dL 745-402 0756/02/07 triglyceride, serum, fasting 83 mg/dL 30-200 HDL cholesterol, serum 70 mg/dL 32-96 LDL cholesterol, serum 39 mg/dL 0-130 hemoglobin A1C, blood, as % of total hemoglobin 8.3 % 4.3-6.0 sodium, serum 141 mmol/L 886-055 0081/02/07 carbon dioxide, venous blood 26.0 mmol/L 21.0-32.0 [...] 2.6-7.2 Encounters Code Encounter Date Provider Facility CPT-33336 Level 4 Est. Patient 09:29:28 ASSOCIATE FIELD SERVICE ENGINEER Simon Castillo MD [facility] CPT-82528 Level 3 Est. Patient 09:18:25 CDT Simon Castillo MD [facility] CPT-57494 Level 4 Est. Patient 11:51:23 CDT Simon Castillo MD [facility] CPT-55031 Level 4 Est. Patient 14:32:04 CDT Neto Oshea DO [facility] CPT-06793 Level 3 Est. Patient 08:41:43 CDT Giles Tatum APRN [facility] CPT-39367 Level 3 Est. Patient 08:40:53 CDT Jonathanviratriston Salcidoalejandrina [facility] CPT-73022 Level 3 Est. Patient 08:36:52 CDT Giles Caotico [facility] CPT-56696 Level 3 Est. Patient 09:08:44 CDT Jonathanmeli Nashtico [facility] CPT-06503 Level 4 Est. Patient 09:17:32 ASSOCIATE FIELD SERVICE ENGINEER Simon Castillo MD [facility] CPT-97179 Level 3 Est. Patient 11:22:22 ASSOCIATE FIELD SERVICE ENGINEER Simon Castillo MD [facility] CPT-73682 Level 3 Est. Patient 09:02:14 CDT Simon Castillo MD [facility] CPT-46080 Level 4 Est. Patient 08:47:25 CDT Simon Castillo MD [facility] CPT-58723 Level 4 Est. Patient 10:17:25 CDT Simon Castillo MD [facility] CPT-96031 Level 4 Est. Patient 10:10:09 ASSOCIATE FIELD SERVICE ENGINEER Simon Castillo MD [facility] CPT-94764 Level 4 Est. Patient 11:48:19 CDT Simon Castillo MD [facility] CPT-53600 Level 4 Est. Patient 08:59:29 CDT Simon Castillo MD [facility] CPT-36022 Level 4 Est. Patient 10:52:51 ASSOCIATE FIELD SERVICE ENGINEER Simon Castillo MD [facility] CPT-57655 Level 4 Est. Patient 11:50:30 CDT Simon Castillo MD [facility] CPT-16338 Level 4 Est. Patient 09:54:46 CDT Simon Castillo MD [facility] CPT-59650 Level 3 Est. Patient 11:10:14 CDT Simon Castillo MD [facility] CPT-06893 Level 4 Est. Patient 09:44:02 CDT Simon Castillo MD [facility] CPT-32693 Level 3 Est. Patient 09:27:48 CDT Simon Castillo MD [facility] CPT-79486 Level 3 Est. Patient 09:58:06 ASSOCIATE FIELD SERVICE ENGINEER Simon Castillo MD [facility] CPT-08563 Level 3 Est. Patient 09:51:35 CDT Simon Castillo MD [facility] Procedures Code Procedure Name Date Entry Date Standard Description [facility] Transitional Care Mgmt-High 11:01:28 ASSOCIATE FIELD SERVICE ENGINEER CPT-63839 First Vx - Ix admin for Medicare patients 17:33:39 CDT CPT-04193 Fluzone High-Dose Intramuscular Suspension 17:33:39 CDT CPT-G0438 Initial Annual Wellness Exam 08:57:30 CDT CPT-35097 Chest 2V Frontal and Lat - XRAY USE ONLY 09:00:14 CDT CPT-33292 Venipuncture Draw Fee 13:33:02 CDT CPT-17896 Bone Density 09:37:49 ASSOCIATE FIELD SERVICE ENGINEER CPT-07732 Fluzone High Dose 17:20:42 CDT CPT-43130 Prevnar 13 17:20:42 CDT CPT-17435 Administration 2+ single or combination vaccines inc oral 17:20:42 CDT CPT-25179 Administration single or combination vaccine inc oral 17 :20:42 CDT CPT-90785 Hand comp min 3V 09:24:38 CDT CPT-39765 Venipuncture Draw Fee 08:07:29 ASSOCIATE FIELD SERVICE ENGINEER CPT-26374 Venipuncture Draw Fee 09:02:51 ASSOCIATE FIELD SERVICE ENGINEER CPT-67285 Venipuncture Draw Fee 12:45:08 ASSOCIATE FIELD SERVICE ENGINEER CPT-33065 Venipuncture Draw Fee 09:25:31 CDT CPT-G0008 Administration of Influenza Virus Vaccine 14:41:29 CDT CPT-90233 Fluzone High-Dose Intramuscular Suspension 14:41:29 CDT CPT-[facility] Cryotherapy 11:48:20 CDT CPT-67609 EKG Trac and Interp 09:21:58 CDT CPT-34109 Chest 2V Frontal and Lat 09:21:58 CDT CPT-Cryo Cryotherapy 10:54:51 ASSOCIATE FIELD SERVICE ENGINEER CPT-80282 Administration 2+ single or combination vaccines inc oral 10:42:19 CDT CPT-27766 Administration single or combination vaccine inc oral 10 :42:19 CDT CPT-36905 Pneumovax 10:42:19 CDT CPT-96519 Influenza High Dose age 65+ 10:42:19 CDT CPT-39642 Administration single or combination vaccine inc oral 13 :18:54 CDT CPT-75546 Influenza High Dose age 65+ 13:18:54 CDT CPT-63307 Venipuncture Draw Fee 11:53:16 CDT CPT-29840 LS spine comp w obliq 11:03:13 CDT CPT-Cryo Cryotherapy 08:27:16 ASSOCIATE FIELD SERVICE ENGINEER CPT-10165 Administration single or combination vaccine inc oral 10 :56:34 CDT CPT-47674 Influenza High Dose age 65+ 10:56:34 CDT
--- OUTSIDE RECORDS SUMMARY | 2018-03-31 18:40 | XMS REPORT | Clinical Summary ---
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 Inactive Simon Castillo MD Hand pain, bilateral ICD-729.5 Inactive Simon Castillo MD Medication List Medication Instructions Start Date Stop Date Generic Name NDC Status Provider Patient Instruction CLARITIN 10 MG TAB 1 tablet by mouth daily as needed for allergies LORATADINE 62564937294 Active Jillina Fraamayal [employer] GRINDER Active PREDNISONE 20 MG TAB 1 tablet daily for airway inflammation PREDNISONE 19928467552 Active Jillina Frazell [employer]CISION JIG GRINDER Active AZITHROMYCIN 250 MG TABS 2 po qd x 1 day, then 1 po qd x 4 days AZITHROMYCIN 04223436492 No Longer Active Jillina Lolyl [employer] GRINDER Active GLIMEPIRIDE 2 MG ORAL TABS 1 po q a.m. GLIMEPIRIDE 13129636965 Active Simon Castillo MD Active HYDROCODONE-ACETAMINOPHEN 5-325 MG TABS 1 tab by mouth 8 hours as needed for pain HYDROCODONE-ACETAMINOPHEN 16148566713 Active Simon Castillo MD Active TRAMADOL HCL 50 MG TABS 1 po q6hr PRN Pain TRAMADOL HCL 39355134183 No Longer Active Simon Castillo MD Active PREDNISONE 5 MG TAB 1-2 tabs daily for rheumatoid arthritis PREDNISONE 56687837692 Active Simon Castillo MD Active PREDNISONE 5 MG TABS 1 po qod PREDNISONE 67323648986 No Longer Active Simon Castillo MD Active SYMBICORT 160-4.5 MCG/ACT AERO 2 puff BID BUDESONIDE- FORMOTEROL FUMARATE 37107581946 No Longer Active Simon Castillo MD Active FLONASE 50 MCG/ACT SUSP 2 puffs in each nostril daily FLUTICASONE PROPIONATE 43419613769 No Longer Active Simon Castillo MD Active PREDNISONE 20 MG TAB 2 tabs daily for 5 days, then 1 daily for 5 days PREDNISONE 95069921507 No Longer Active Simon Castillo MD Active PREDNISONE 20 MG TAB 2 tabs daily for 5 days, then 1 daily for 5 days, then 0.5 for 4 days PREDNISONE 44998306756 No Longer Active Simon Castillo MD Active CLOTRIMAZOLE 1 % EXT CREA Apply to affected area of feet twice daily PRN Rash CLOTRIMAZOLE 26802619156 Active Simon Castillo MD Active PREDNISONE 20 MG TAB 2 tabs daily for 3 days, 1 tab daily for 3 days, 1/2 tab daily for 2 days PREDNISONE 76649562763 No Longer Active Simon Castillo MD Active AZITHROMYCIN 250 MG TABS 2 po qd x 1 day, then 1 po qd x 4 days AZITHROMYCIN 16145493805 No Longer Active Simon Castillo MD Active LISINOPRIL 10 MG TABS 1 tablet by mouth daily LISINOPRIL 31510770136 Active Simon Castillo MD Active CARVEDILOL 6.25 MG TABS 1 po BID CARVEDILOL 06688357892 Active Simon Castillo MD Active LISINOPRIL-HYDROCHLOROTHIAZIDE 20-12.5 MG TABS 1/2 tab by mouth daily LISINOPRIL-HYDROCHLOROTHIAZIDE 28062083611 No Longer Active Simon Castillo MD Active TRAMADOL HCL 50 MG TABS 1-2 tablets every 6 hours as needed for pain TRAMADOL HCL 22835293335 Active Giles Tatum APRN Active PREDNISONE 5 MG TAB Take one po qod PREDNISONE 84187630417 No Longer Active Simon Castillo MD Active GLYBURIDE 5 MG TAB Take one by mouth daily GLYBURIDE 29091654592 No Longer Active Simon Castillo MD Active LEVAQUIN 750 MG TABS 1 po qod x 5 doses LEVOFLOXACIN 46700829055 No Longer Active Simon Castillo MD Active CETIRIZINE HCL 10 MG TABS 1 po qd as needed for allergies CETIRIZINE HCL 90954943153 No Longer Active Simon Castillo MD Active FISH OIL 1000 MG CPDR 1 pill by mouth twice daily for cholesterol OMEGA -3 FATTY ACIDS 86397939129 Active Simon Castillo MD Active BILBERRY CAPS 1 tab daily BILBERRY (VACCINIUM MYRTILLUS) CAPS 18280853370 Active Simon Castillo MD Active ATENOLOL 50 MG TABS Take one by mouth daily ATENOLOL 17166277017 No Longer Active Simon Castillo MD Active FLONASE 50 MCG/ACT SUSP 2 puffs in each nostril daily FLUTICASONE PROPIONATE 25365489431 No Longer Active Simon Castillo MD Active GLYBURIDE 5 MG TAB Take one by mouth daily GLYBURIDE 79578865462 No Longer Active Simon Castillo MD Active SYMBICORT 80-4.5 MCG/ACT AERO 2 puffs twice a day BUDESONIDE-FORMOTEROL FUMARATE 88057057681 No Longer Active Simon Castillo MD Active PREDNISONE 20 MG TAB 2 tabs daily for 4 days, 1 tab daily for 4 days, 1/2 tab daily for 4 days PREDNISONE 71814101975 No Longer Active Simon Castillo MD Active AMOXICILLIN 500 MG CAPS 2 po BID x 10 days AMOXICILLIN 55959463714 No Longer Active Simon Castillo MD Active METFORMIN HCL 1000 MG TABS 1 by mounth twice a day METFORMIN HCL 16321206652 No Longer Active Simon Castillo MD Active LUTEIN-ZEAXANTHIN 6-1 MG TABS Take 2 by mouth daily LUTEIN-ZEAXANTHIN 70015072892 Active Simon Castillo MD Active IBUPROFEN 800 MG TABS Take 1 tab every 6 hrs prn IBUPROFEN 11384725561 No Longer Active Simon Castillo MD Active GLYBURIDE 2.5 MG TABS Take one by mouth daily GLYBURIDE 64909546008 No Longer Active Simon Castillo MD Active LANCETS MISC 2 qd LANCETS 35424799740 Active Pamela Conde Active ACACIA CONTOUR TEST STRP Use with testing twice daily GLUCOSE BLOOD 52878756557 Active Simon Castillo MD Active ACACIA ASPIRIN 325 MG TABS Take one by mouth daily ASPIRIN 27184556226 Active Pamela Conde Active GLYBURIDE 2.5 MG TABS Take one by mouth daily GLYBURIDE 2.5 MG TABS 084088 GLYBURIDE Inactive PREDNISONE 20 MG TAB 2 tabs daily for 4 days, 1 tab daily for 4 days, 1/2 tab daily for 4 days PREDNISONE 20 MG TAB 470222 PREDNISONE Inactive SYMBICORT 80-4.5 MCG/ACT AERO 2 puffs twice a day SYMBICORT 80-4.5 MCG/ACT AERO BUDESONIDE-FORMOTEROL FUMARATE Inactive FLONASE 50 MCG/ACT SUSP 2 puffs in each nostril daily FLONASE 50 MCG/ACT SUSP 913226 FLUTICASONE PROPIONATE Inactive ATENOLOL 50 MG TABS Take one by mouth daily ATENOLOL 50 MG TABS 943990 ATENOLOL Inactive CETIRIZINE HCL 10 MG TABS 1 po qd as needed for allergies CETIRIZINE HCL 10 MG TABS 0449414 CETIRIZINE HCL Inactive LEVAQUIN 750 MG TABS 1 po qod x 5 doses LEVAQUIN 750 MG TABS 084776 LEVOFLOXACIN Inactive GLYBURIDE 5 MG TAB Take one by mouth daily GLYBURIDE 5 MG TAB 835655 GLYBURIDE Inactive PREDNISONE 5 MG TAB Take one po qod PREDNISONE 5 MG TAB 329227 PREDNISONE Inactive PREDNISONE 20 MG TAB 2 tabs daily for 5 days, then 1 daily for 5 days PREDNISONE 20 MG TAB 760104 PREDNISONE Inactive FLONASE 50 MCG/ACT SUSP 2 puffs in each nostril daily FLONASE 50 MCG/ACT SUSP 103714 FLUTICASONE PROPIONATE Inactive SYMBICORT 160-4.5 MCG/ACT AERO 2 puff BID SYMBICORT 160-4.5 MCG/ACT AERO BUDESONIDE-FORMOTEROL FUMARATE Inactive PREDNISONE 5 MG TABS 1 po qod PREDNISONE 5 MG TABS 461659 PREDNISONE Inactive AMOXICILLIN 500 MG CAPS 2 po BID x 10 days AMOXICILLIN 500 MG CAPS 548331 AMOXICILLIN Inactive GLYBURIDE 5 MG TAB Take one by mouth daily GLYBURIDE 5 MG TAB 541230 GLYBURIDE Inactive AZITHROMYCIN 250 MG TABS 2 po qd x 1 day, then 1 po qd x 4 days AZITHROMYCIN 250 MG TABS 4801335 AZITHROMYCIN Inactive PREDNISONE 20 MG TAB 2 tabs daily for 3 days, 1 tab daily for 3 days, 1/2 tab daily for 2 days PREDNISONE 20 MG TAB 185365 PREDNISONE Inactive PREDNISONE 20 MG TAB 2 tabs daily for 5 days, then 1 daily for 5 days, then 0.5 for 4 days PREDNISONE 20 MG TAB 649825 PREDNISONE Inactive AZITHROMYCIN 250 MG TABS 2 po qd x 1 day, then 1 po qd x 4 days AZITHROMYCIN 250 MG TABS 0688856 AZITHROMYCIN Inactive Immunizations Vaccine Administration Date Value [...] Panel - Chemistry sodium, serum 132 mmol/L 846-686 5068/10/26 carbon dioxide, venous blood 22.8 mmol/L 21.0-32.0 [...] Panel - Chemistry sodium, serum 139 mmol/L 639-949 8523/03/17 carbon dioxide, venous blood 29.0 mmol/L 21.0-32.0 [...] Rate - Chemistry sodium, serum 136 mmol/L 433-209 8235/09/18 carbon dioxide, venous blood 24.3 mmol/L 21.0-32.0 [...] HGBA1C - Chemistry sodium, serum 139 mmol/L 469-020 2214/07/09 potassium, serum 5.4 mmol/L 3.5-5.2 chloride, serum [...] 8.5 % 4.3-6.0 sodium, serum 137 mmol/L 436-842 8980/02/12 potassium, serum 5.1 mmol/L 3.5-5.2 chloride, serum 103 mmol/L 98-107 carbon dioxide, venous blood 24.4 mmol/L 21.0-32.0 blood glucose 261 mg/dL 65-110 calcium, serum 9.0 mg/dL 8.5-10.1 urea nitrogen, blood 44 mg/dL 7-18 creatinine, serum 2.37 mg/dL 0.55-1.30 Lab Report: Lipid Panel - Chemistry cholesterol, serum 139 mg/dL 046-460 9126/09/10 triglyceride, serum, fasting 176 mg/dL 30-200 HDL cholesterol, serum 45 mg/dL 32-96 LDL cholesterol, serum 59 mg/dL 0-130 Lab Report: MICROALBUMIN - Chemistry albumin/creatinine ratio, urine 30 - 300 mg/g mg/g{creat} 0-29 Lab Report: MICROALBUMIN - Lab microalbumin, urine 30 0-19 Encounters Code Encounter Date Provider Facility CPT-35940 Level 3 Est. Patient 09:08:44 CDT Giles Tatum APRN [facility] CPT-77190 Level 4 Est. Patient 09:17:32 FOOD MANAGEMENT AIDE Simon Castillo MD [facility] CPT-50002 Level 3 Est. Patient 11:22:22 FOOD MANAGEMENT AIDE Simon Castillo MD [facility] CPT-99791 Level 3 Est. Patient 09:02:14 CDT Simon Castillo MD [facility] CPT-29741 Level 4 Est. Patient 08:47:25 CDT Simon Castillo MD [facility] CPT-08284 Level 4 Est. Patient 10:17:25 CDT Simon Castillo MD [facility] CPT-13648 Level 4 Est. Patient 10:10:09 FOOD MANAGEMENT AIDE Simon Castillo MD [facility] CPT-51202 Level 4 Est. Patient 11:48:19 CDT Simon Castillo MD [facility] CPT-51697 Level 4 Est. Patient 08:59:29 CDT Simon Castillo MD [facility] CPT-99598 Level 4 Est. Patient 10:52:51 FOOD MANAGEMENT AIDE Simon Casitllo MD [facility] CPT-69983 Level 4 Est. Patient 11:50:30 CDT Simon Castillo MD [facility] CPT-81944 Level 4 Est. Patient 09:54:46 CDT Simon Castillo MD [facility] CPT-58499 Level 3 Est. Patient 11:10:14 CDT Simon Castillo MD [facility] CPT-72777 Level 4 Est. Patient 09:44:02 CDT Simon Castillo MD [facility] CPT-11215 Level 3 Est. Patient 09:27:48 CDT Simon Castillo MD [facility] CPT-29474 Level 3 Est. Patient 09:58:06 FOOD MANAGEMENT AIDE Simon Castillo MD [facility] CPT-11692 Level 3 Est. Patient 09:51:35 CDT Simon Castillo MD [facility] Procedures Code Procedure Name Date Entry Date Standard Description CPT-36932 Venipuncture Draw Fee 13:33:02 CDT CPT-22580 Bone Density 09:37:49 FOOD MANAGEMENT AIDE CPT-08424 Fluzone High Dose 17:20:42 CDT CPT-44930 Prevnar 13 17:20:42 CDT CPT-57313 Administration 2+ single or combination vaccines inc oral 17:20:42 CDT CPT-39092 Administration single or combination vaccine inc oral 17 :20:42 CDT CPT-43986 Hand comp min 3V 09:24:38 CDT CPT-16972 Venipuncture Draw Fee 08:07:29 FOOD MANAGEMENT AIDE CPT-18466 Venipuncture Draw Fee 09:02:51 FOOD MANAGEMENT AIDE CPT-40455 Venipuncture Draw Fee 12:45:08 FOOD MANAGEMENT AIDE CPT-94963 Venipuncture Draw Fee 09:25:31 CDT CPT-G0008 Administration of Influenza Virus Vaccine 14:41:29 CDT CPT-69135 Fluzone High-Dose Intramuscular Suspension 14:41:29 CDT CPT-Cryo Cryotherapy 11:48:20 CDT CPT-96637 EKG Trac and Interp 09:21:58 CDT CPT-20560 Chest 2V Frontal and Lat 09:21:58 CDT CPT-Cryo Cryotherapy 10:54:51 FOOD MANAGEMENT AIDE CPT-85182 Administration 2+ single or combination vaccines inc oral 10:42:19 CDT CPT-26977 Administration single or combination vaccine inc oral 10 :42:19 CDT CPT-26285 Pneumovax 10:42:19 CDT CPT-50159 Influenza High Dose age 65+ 10:42:19 CDT CPT-69666 Administration single or combination vaccine inc oral 13 :18:54 CDT CPT-63123 Influenza High Dose age 65+ 13:18:54 CDT CPT-24374 Venipuncture Draw Fee 11:53:16 CDT CPT-15822 LS spine comp w obliq 11:03:13 CDT CPT-Cryo Cryotherapy 08:27:16 FOOD MANAGEMENT AIDE CPT-51462 Administration single or combination vaccine inc oral 10 :56:34 CDT CPT-36853 Influenza High Dose age 65+ 10:56:34 CDT
--- OUTSIDE RECORDS SUMMARY | 2018-03-31 18:41 | XMS REPORT | Clinical Summary ---
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 Megha Mckeon Long-term (current) use of steroids Hand pain, bilateral 729.5 Active Simon Castillo MD Pain in limb DIABETES ICD-V18.0 Inactive Simon Castillo MD LUNG CANCER ICD-V16.1 Inactive Simon Castillo MD [...] 8 hours as needed for pain HYDROCODONE-ACETAMINOPHEN 59137211537 Active Simon Castillo MD Active TRAMADOL HCL 50 MG TABS 1 po q6hr PRN Pain TRAMADOL HCL 02662601385 No Longer Active Simon Castillo MD Active PREDNISONE 5 MG TAB 1-2 tabs daily for rheumatoid arthritis PREDNISONE 54866601474 Active Simon Castillo MD Active PREDNISONE 5 MG TABS 1 po qod PREDNISONE 61885367487 No Longer Active Simon Castillo MD Active SYMBICORT 160-4.5 MCG/ACT AERO 2 puff BID BUDESONIDE- FORMOTEROL FUMARATE 31872120418 No Longer Active Simon Castillo MD Active FLONASE 50 MCG/ACT SUSP 2 puffs in each nostril daily FLUTICASONE PROPIONATE 82842654239 No Longer Active Simon Castillo MD Active PREDNISONE 20 MG TAB 2 tabs daily for 5 days, then 1 daily for 5 days PREDNISONE 22151782515 No Longer Active Simon Castillo MD Active PREDNISONE 20 MG TAB 2 tabs daily for 5 days, then 1 daily for 5 days, then 0.5 for 4 days PREDNISONE 03248971332 No Longer Active Simon Castillo MD Active CLOTRIMAZOLE 1 % EXT CREA Apply to affected area of feet twice daily PRN Rash CLOTRIMAZOLE 49289607509 Active Simon Castillo MD Active PREDNISONE 20 MG TAB 2 tabs daily for 3 days, 1 tab daily for 3 days, 1/2 tab daily for 2 days PREDNISONE 27705782417 No Longer Active Simon Castillo MD Active AZITHROMYCIN 250 MG TABS 2 po qd x 1 day, then 1 po qd x 4 days AZITHROMYCIN 90806506465 No Longer Active Simon Castillo MD Active LISINOPRIL 10 MG TABS 1 tablet by mouth daily LISINOPRIL 44702429271 Active Simon Castillo MD Active GLIMEPIRIDE 1 MG TABS 1 po q a.m. GLIMEPIRIDE 80397380972 Active Simon Castillo MD Active CARVEDILOL 6.25 MG TABS 1 po BID CARVEDILOL 18449532217 Active Simon Castillo MD Active LISINOPRIL-HYDROCHLOROTHIAZIDE 20-12.5 MG TABS 1/2 tab by mouth daily LISINOPRIL-HYDROCHLOROTHIAZIDE 32545060327 No Longer Active Simon Castillo MD Active TRAMADOL HCL 50 MG TABS 1-2 tablets every 6 hours as needed for pain TRAMADOL HCL 51826947464 Active Simon Castillo MD Active PREDNISONE 5 MG TAB Take one po qod PREDNISONE 95915081353 No Longer Active Simon Castillo MD Active GLYBURIDE 5 MG TAB Take one by mouth daily GLYBURIDE 20224293829 No Longer Active Simon Castillo MD Active LEVAQUIN 750 MG TABS 1 po qod x 5 doses LEVOFLOXACIN 16034253889 No Longer Active Simon Castillo MD Active CETIRIZINE HCL 10 MG TABS 1 po qd as needed for allergies CETIRIZINE HCL 87902690843 No Longer Active Simon Castillo MD Active FISH OIL 1000 MG CPDR 1 pill by mouth twice daily for cholesterol OMEGA -3 FATTY ACIDS 72994446541 Active Simon Castillo MD Active BILBERRY CAPS 1 tab daily BILBERRY (VACCINIUM MYRTILLUS) CAPS 31408976885 Active Simon Castillo MD Active ATENOLOL 50 MG TABS Take one by mouth daily ATENOLOL 94352485702 No Longer Active Simon Castillo MD Active FLONASE 50 MCG/ACT SUSP 2 puffs in each nostril daily FLUTICASONE PROPIONATE 17736799144 No Longer Active Simon Castillo MD Active GLYBURIDE 5 MG TAB Take one by mouth daily GLYBURIDE 98007877492 No Longer Active Simon Castillo MD Active SYMBICORT 80-4.5 MCG/ACT AERO 2 puffs twice a day BUDESONIDE-FORMOTEROL FUMARATE 64468976063 No Longer Active Simon Castillo MD Active PREDNISONE 20 MG TAB 2 tabs daily for 4 days, 1 tab daily for 4 days, 1/2 tab daily for 4 days PREDNISONE 94281273763 No Longer Active Simon Castillo MD Active AMOXICILLIN 500 MG CAPS 2 po BID x 10 days AMOXICILLIN 63392986720 No Longer Active Simon Castillo MD Active METFORMIN HCL 1000 MG TABS 1 by mounth twice a day METFORMIN HCL 76690076766 No Longer Active Simon Castillo MD Active LUTEIN-ZEAXANTHIN 6-1 MG TABS Take 2 by mouth daily LUTEIN-ZEAXANTHIN 83873622424 Active Simon Castillo MD Active IBUPROFEN 800 MG TABS Take 1 tab every 6 hrs prn IBUPROFEN 86306141989 No Longer Active Simon Castillo MD Active GLYBURIDE 2.5 MG TABS Take one by mouth daily GLYBURIDE 94864910413 No Longer Active Simon Castillo MD Active LANCETS MISC 2 qd LANCETS 52060090046 Active Pamela Conde Active ACACIA CONTOUR TEST STRP Use with testing twice daily GLUCOSE BLOOD 48079459314 Active Simon Castillo MD Active ACACIA ASPIRIN 325 MG TABS Take one by mouth daily ASPIRIN 00455085279 Active Pamela Conde Active GLYBURIDE 2.5 MG TABS Take one by mouth daily GLYBURIDE 2.5 MG TABS 639102 GLYBURIDE Inactive PREDNISONE 20 MG TAB 2 tabs daily for 4 days, 1 tab daily for 4 days, 1/2 tab daily for 4 days PREDNISONE 20 MG TAB 166437 PREDNISONE Inactive SYMBICORT 80-4.5 MCG/ACT AERO 2 puffs twice a day SYMBICORT 80-4.5 MCG/ACT AERO BUDESONIDE-FORMOTEROL FUMARATE Inactive FLONASE 50 MCG/ACT SUSP 2 puffs in each nostril daily FLONASE 50 MCG/ACT SUSP FLUTICASONE PROPIONATE Inactive ATENOLOL 50 MG TABS Take one by mouth daily ATENOLOL 50 MG TABS 080988 ATENOLOL Inactive CETIRIZINE HCL 10 MG TABS 1 po qd as needed for allergies CETIRIZINE HCL 10 MG TABS 7701545 CETIRIZINE HCL Inactive LEVAQUIN 750 MG TABS 1 po qod x 5 doses LEVAQUIN 750 MG TABS 933468 LEVOFLOXACIN Inactive GLYBURIDE 5 MG TAB Take one by mouth daily GLYBURIDE 5 MG TAB 022177 GLYBURIDE Inactive PREDNISONE 5 MG TAB Take one po qod PREDNISONE 5 MG TAB 351983 PREDNISONE Inactive PREDNISONE 20 MG TAB 2 tabs daily for 5 days, then 1 daily for 5 days PREDNISONE 20 MG TAB 091434 PREDNISONE Inactive FLONASE 50 MCG/ACT SUSP 2 puffs in each nostril daily FLONASE 50 MCG/ACT SUSP FLUTICASONE PROPIONATE Inactive SYMBICORT 160-4.5 MCG/ACT AERO 2 puff BID SYMBICORT 160-4.5 MCG/ACT AERO BUDESONIDE-FORMOTEROL FUMARATE Inactive PREDNISONE 5 MG TABS 1 po qod PREDNISONE 5 MG TABS 761780 PREDNISONE Inactive AMOXICILLIN 500 MG CAPS 2 po BID x 10 days AMOXICILLIN 500 MG CAPS 998407 AMOXICILLIN Inactive GLYBURIDE 5 MG TAB Take one by mouth daily GLYBURIDE 5 MG TAB 405788 GLYBURIDE Inactive AZITHROMYCIN 250 MG TABS 2 po qd x 1 day, then 1 po qd x 4 days AZITHROMYCIN 250 MG TABS 7584073 AZITHROMYCIN Inactive PREDNISONE 20 MG TAB 2 tabs daily for 3 days, 1 tab daily for 3 days, 1/2 tab daily for 2 days PREDNISONE 20 MG TAB 989341 PREDNISONE Inactive PREDNISONE 20 MG TAB 2 tabs daily for 5 days, then 1 daily for 5 days, then 0.5 for 4 days PREDNISONE 20 MG TAB 852862 PREDNISONE Inactive Immunizations Vaccine Administration Date Value [...] Panel - Chemistry sodium, serum 132 mmol/L 869-862 8894/10/26 carbon dioxide, venous blood 22.8 mmol/L 21.0-32.0 [...] Rate - Chemistry sodium, serum 136 mmol/L 815-790 7124/09/18 carbon dioxide, venous blood 24.3 mmol/L 21.0-32.0 [...] % of total hemoglobin 6.9 % 4.3-6.0 chloride, serum 105 mmol/L 98-107 potassium, serum 5.4 mmol/L 3.5-5.2 sodium, serum 139 mmol/L 136-145 Lab Report: HGBA1C - Chemistry hemoglobin A1C, blood, as % of total hemoglobin 7.7 % 4.3-6.0 hemoglobin A1C, blood, as % of total hemoglobin 6.8 % 4.3-6.0 Lab Report: Lipid Panel - Chemistry cholesterol, serum 139 mg/dL 413-128 6011/09/10 triglyceride, serum, fasting 176 mg/dL 30-200 HDL cholesterol, serum 45 mg/dL 32-96 LDL cholesterol, serum 59 mg/dL 0-130 Lab Report: MICROALBUMIN - Chemistry albumin/creatinine ratio, urine 30 - 300 mg/g mg/g{creat} 0-29 Lab Report: MICROALBUMIN - Lab microalbumin, urine 30 0-19 Lab Report: Prostatic Specific Ag - Chemistry prostate specific antigen 1.52 ng/mL 0.00-4.00 Encounters Code Encounter Date Provider Facility CPT-87084 Level 3 Est. Patient 11:22:22 [employer] Simon Castillo MD [facility] CPT-66656 Level 3 Est. Patient 09:02:14 CDT Simon Castillo MD [facility] CPT-55430 Level 4 Est. Patient 08:47:25 CDT Simon Castillo MD [facility] CPT-22448 Level 4 Est. Patient 10:17:25 CDT Simon Castillo MD [facility] CPT-41189 Level 4 Est. Patient 10:10:09 [employer] Simon Castillo MD [facility] CPT-70862 Level 4 Est. Patient 11:48:19 CDT Simon Castillo MD [facility] CPT-75840 Level 4 Est. Patient 08:59:29 CDT Simon Castillo MD [facility] CPT-18755 Level 4 Est. Patient 10:52:51 [employer] Simon Castillo MD [facility] CPT-12266 Level 4 Est. Patient 11:50:30 CDT Simon Castillo MD [facility] CPT-35160 Level 4 Est. Patient 09:54:46 CDT Simon Castillo MD [facility] CPT-47946 Level 3 Est. Patient 11:10:14 CDT Simon Castillo MD [facility] CPT-61025 Level 4 Est. Patient 09:44:02 CDT Simon Castillo MD [facility] CPT-70760 Level 3 Est. Patient 09:27:48 CDT Simon Castillo MD [facility] CPT-92358 Level 3 Est. Patient 09:58:06 [employer] Simon Castillo MD [facility] CPT-15908 Level 3 Est. Patient 09:51:35 CDT Simon Castillo MD [facility] Procedures Code Procedure Name Date Entry Date Standard Description CPT-88036 Bone Density 09:37:49 [employer] CPT-66610 Fluzone High Dose 17:20:42 CDT CPT-14358 Prevnar 13 17:20:42 CDT CPT-59073 Administration 2+ single or combination vaccines inc oral 17:20:42 CDT CPT-89743 Administration single or combination vaccine inc oral 17 :20:42 CDT CPT-87119 Hand comp min 3V 09:24:38 CDT CPT-64045 Venipuncture Draw Fee 08:07:29 [employer] CPT-57810 Venipuncture Draw Fee 09:02:51 [employer] CPT-78025 Venipuncture Draw Fee 12:45:08 [employer] CPT-79914 Venipuncture Draw Fee 09:25:31 CDT CPT-G0008 Administration of Influenza Virus Vaccine 14:41:29 CDT CPT-29377 Fluzone High-Dose Intramuscular Suspension 14:41:29 CDT CPT-Cryo Cryotherapy 11:48:20 CDT CPT-54776 EKG Trac and Interp 09:21:58 CDT CPT-76093 Chest 2V Frontal and Lat 09:21:58 CDT CPT-Cryo Cryotherapy 10:54:51 [employer] CPT-45177 Administration 2+ single or combination vaccines inc oral 10:42:19 CDT CPT-35788 Administration single or combination vaccine inc oral 10 :42:19 CDT CPT-40006 Pneumovax 10:42:19 CDT CPT-98352 Influenza High Dose age 65+ 10:42:19 CDT CPT-74252 Administration single or combination vaccine inc oral 13 :18:54 CDT CPT-41536 Influenza High Dose age 65+ 13:18:54 CDT CPT-64332 Venipuncture Draw Fee 11:53:16 CDT CPT-94337 LS spine comp w obliq 11:03:13 CDT CPT-Cryo Cryotherapy 08:27:16 [employer] CPT-75649 Administration single or combination vaccine inc oral 10 :56:34 CDT CPT-14479 Influenza High Dose age 65+ 10:56:34 CDT
--- OUTSIDE RECORDS SUMMARY | 2018-03-31 18:42 | XMS REPORT | Clinical Summary ---
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 [...] Castillo MD Chest pain ICD-786.50 Inactive Simon Castlilo MD Cough ICD-786.2 Inactive Simon Castillo MD Eczema ICD-692.9 Kerry Castillo MD 02/27 Bronchitis, acute ICD-466.0 Kerry Castillo MD Tinea pedis ICD-110.4 Kerry Castillo MD Hand pain, bilateral ICD-729.5 Kerry Castillo MD 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, 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 Kerry Castillo MD Hand pain, bilateral [...] MG ORAL TABS 1 po qd BUMETANIDE 26037961367 Active Simon Castillo MD Active AUGMENTIN 875-125 MG ORAL TABS 1 po BID x 10 days AMOXICILLIN-POT CLAVULANATE 88683361593 No Longer Active Simon Castillo MD Active PIOGLITAZONE HCL 30 MG ORAL TABS 1 po qd PIOGLITAZONE HCL 65656622777 Active Simon Castillo MD Active GLIMEPIRIDE 4 MG ORAL TABS 1 po BID GLIMEPIRIDE 86161244170 Active Simon Castillo MD Active ASPIRIN EC 81 MG ORAL TBEC 1 po qd ASPIRIN 41341866518 Active Simon Castillo MD Active CLOTRIMAZOLE 1 % EXT CREA Apply to affected area of feet twice daily PRN Rash CLOTRIMAZOLE 54937278181 No Longer Active Simon Castillo MD Active PREDNISONE 5 MG TAB 1 po BID PREDNISONE 07365448348 Active Simon Castillo MD Active FISH OIL 1000 MG CPDR 1 po BID OMEGA-3 FATTY ACIDS 32064930534 Active Simon Castillo MD Active LISINOPRIL 10 MG TABS 1 p qd LISINOPRIL 06374585732 Active Simon Castillo MD Active CLARITIN 10 MG TAB 1 tablet by mouth daily as needed for allergies LORATADINE 30339017971 No Longer Active Simon Castillo MD Active TRIAMCINOLONE ACETONIDE 0.1 % OINT Apply to affected areas TID for up to 2 weeks TRIAMCINOLONE ACETONIDE 50256822030 No Longer Active Simon Castillo MD Active LASIX 20 MG TAB 1 tablet by mouth daily x 2 days FUROSEMIDE 36599835010 No Longer Active Simon Castillo MD Active SULFASALAZINE 500 MG ORAL TBEC 2 tabs BID SULFASALAZINE 71031442963 No Longer Active Neto Oshea DO Active PREDNISONE 20 MG TAB 2 tabs daily for 3 days, 1 tab daily for 3 days, 1/2 tab daily for 2 days PREDNISONE 65791539948 No Longer Active Jillina Frazell BAKER HEAD Active PREDNISONE 20 MG TAB 1 tablet daily for airway inflammation 02/25 PREDNISONE 50313771554 No Longer Active Jillina Frazell BAKER HEAD Active AZITHROMYCIN 250 MG TABS 2 po qd x 1 day, then 1 po qd x 4 days AZITHROMYCIN 07319446827 No Longer Active Jillina Frazell BAKER HEAD Active HYDROCODONE-ACETAMINOPHEN 5-325 MG TABS 1 tab by mouth 8 hours as needed for pain HYDROCODONE-ACETAMINOPHEN 55813908587 Active Simon Castillo MD Active TRAMADOL HCL 50 MG TABS 1 po q6hr PRN Pain TRAMADOL HCL 55702591176 No Longer Active Simon Castillo MD Active PREDNISONE 5 MG TABS 1 po qod PREDNISONE 45397822276 No Longer Active Simon Castillo MD Active SYMBICORT 160-4.5 MCG/ACT AERO 2 puff BID BUDESONIDE- FORMOTEROL FUMARATE 18770421775 No Longer Active Simon Castillo MD Active FLONASE 50 MCG/ACT SUSP 2 puffs in each nostril daily FLUTICASONE PROPIONATE 78036344615 No Longer Active Simon Castillo MD Active PREDNISONE 20 MG TAB 2 tabs daily for 5 days, then 1 daily for 5 days PREDNISONE 46386194613 No Longer Active Simon Castillo MD Active PREDNISONE 20 MG TAB 2 tabs daily for 5 days, then 1 daily for 5 days, then 0.5 for 4 days PREDNISONE 23645273788 No Longer Active Simon Castillo MD Active PREDNISONE 20 MG TAB 2 tabs daily for 3 days, 1 tab daily for 3 days, 1/2 tab daily for 2 days PREDNISONE 27489870327 No Longer Active Simon Castillo MD Active AZITHROMYCIN 250 MG TABS 2 po qd x 1 day, then 1 po qd x 4 days AZITHROMYCIN 75483505479 No Longer Active Simon Castillo MD Active CARVEDILOL 6.25 MG TABS 1 po BID CARVEDILOL 19094211121 Active Simon Castillo MD Active LISINOPRIL-HYDROCHLOROTHIAZIDE 20-12.5 MG TABS 1/2 tab by mouth daily LISINOPRIL-HYDROCHLOROTHIAZIDE 84273466618 No Longer Active Simon Castillo MD Active TRAMADOL HCL 50 MG TABS 1-2 tablets every 6 hours as needed for pain TRAMADOL HCL 93934321146 Active Giles Tatum APRN Active PREDNISONE 5 MG TAB Take one po qod PREDNISONE 45566056230 No Longer Active Simon Castillo MD Active GLYBURIDE 5 MG TAB Take one by mouth daily GLYBURIDE 67119753137 No Longer Active Simon Castillo MD Active LEVAQUIN 750 MG TABS 1 po qod x 5 doses LEVOFLOXACIN 07667172320 No Longer Active Simon Castillo MD Active CETIRIZINE HCL 10 MG TABS 1 po qd as needed for allergies CETIRIZINE HCL 90246174866 No Longer Active Simon Castillo MD Active BILBERRY CAPS 1 tab daily BILBERRY (VACCINIUM MYRTILLUS) CAPS 28249991032 Active Simon Castillo MD Active ATENOLOL 50 MG TABS Take one by mouth daily ATENOLOL 96964560954 No Longer Active Simon Castillo MD Active FLONASE 50 MCG/ACT SUSP 2 puffs in each nostril daily FLUTICASONE PROPIONATE 98359872110 No Longer Active Simon Castillo MD Active GLYBURIDE 5 MG TAB Take one by mouth daily GLYBURIDE 20658292480 No Longer Active Simon Casitllo MD Active SYMBICORT 80-4.5 MCG/ACT AERO 2 puffs twice a day BUDESONIDE-FORMOTEROL FUMARATE 89777150467 No Longer Active Simon Castillo MD Active PREDNISONE 20 MG TAB 2 tabs daily for 4 days, 1 tab daily for 4 days, 1/2 tab daily for 4 days PREDNISONE 22843539987 No Longer Active Simon Castillo MD Active AMOXICILLIN 500 MG CAPS 2 po BID x 10 days AMOXICILLIN 77765579847 No Longer Active Simon Castillo MD Active METFORMIN HCL 1000 MG TABS 1 by mounth twice a day METFORMIN HCL 00842992105 No Longer Active Simon Castillo MD Active LUTEIN-ZEAXANTHIN 6-1 MG TABS Take 2 by mouth daily LUTEIN-ZEAXANTHIN 45144462656 Active Simon Castillo MD Active IBUPROFEN 800 MG TABS Take 1 tab every 6 hrs prn IBUPROFEN 02633257498 No Longer Active Simon Castillo MD Active GLYBURIDE 2.5 MG TABS Take one by mouth daily GLYBURIDE 34646487480 No Longer Active Simon Castlilo MD Active LANCETS MISC 2 qd LANCETS 48225254120 Active Pamela Conde Active ACACIA CONTOUR TEST STRP Use with testing twice daily GLUCOSE BLOOD 66308836814 Active Simon Castillo MD Active GLYBURIDE 2.5 MG TABS Take one by mouth daily GLYBURIDE 2.5 MG TABS 707702 GLYBURIDE Inactive PREDNISONE 20 MG TAB 2 tabs daily for 4 days, 1 tab daily for 4 days, 1/2 tab daily for 4 days PREDNISONE 20 MG TAB 729248 PREDNISONE Inactive SYMBICORT 80-4.5 MCG/ACT AERO 2 puffs twice a day SYMBICORT 80-4.5 MCG/ACT AERO BUDESONIDE-FORMOTEROL FUMARATE Inactive FLONASE 50 MCG/ACT SUSP 2 puffs in each nostril daily FLONASE 50 MCG/ACT SUSP 0587319 FLUTICASONE PROPIONATE Inactive ATENOLOL 50 MG TABS Take one by mouth daily ATENOLOL 50 MG TABS 447388 ATENOLOL Inactive CETIRIZINE HCL 10 MG TABS 1 po qd as needed for allergies CETIRIZINE HCL 10 MG TABS 2666453 CETIRIZINE HCL Inactive LEVAQUIN 750 MG TABS 1 po qod x 5 doses LEVAQUIN 750 MG TABS 767616 LEVOFLOXACIN Inactive GLYBURIDE 5 MG TAB Take one by mouth daily GLYBURIDE 5 MG TAB 289648 GLYBURIDE Inactive PREDNISONE 5 MG TAB Take one po qod PREDNISONE 5 MG TAB 140060 PREDNISONE Inactive PREDNISONE 20 MG TAB 2 tabs daily for 5 days, then 1 daily for 5 days PREDNISONE 20 MG TAB 430341 PREDNISONE Inactive FLONASE 50 MCG/ACT SUSP 2 puffs in each nostril daily FLONASE 50 MCG/ACT SUSP 1266881 FLUTICASONE PROPIONATE Inactive SYMBICORT 160-4.5 MCG/ACT AERO 2 puff BID SYMBICORT 160-4.5 MCG/ACT AERO BUDESONIDE-FORMOTEROL FUMARATE Inactive PREDNISONE 5 MG TABS 1 po qod PREDNISONE 5 MG TABS 330307 PREDNISONE Inactive PREDNISONE 20 MG TAB 1 tablet daily for airway inflammation 02/25 PREDNISONE 20 MG TAB 785366 PREDNISONE Inactive SULFASALAZINE 500 MG ORAL TBEC 2 tabs BID SULFASALAZINE [address] [facility] 186313 SULFASALAZINE Inactive LASIX 20 MG TAB 1 tablet by mouth daily x 2 days LASIX 20 MG TAB 887690 FUROSEMIDE Inactive CLARITIN 10 MG TAB 1 tablet by mouth daily as needed for allergies CLARITIN 10 MG TAB 935497 LORATADINE Inactive CLOTRIMAZOLE 1 % EXT CREA Apply to affected area of feet twice daily PRN Rash CLOTRIMAZOLE 1 % EXT CREA 217819 CLOTRIMAZOLE Inactive AMOXICILLIN 500 MG CAPS 2 po BID x 10 days AMOXICILLIN 500 MG CAPS 077142 AMOXICILLIN Inactive GLYBURIDE 5 MG TAB Take one by mouth daily GLYBURIDE 5 MG TAB 076398 GLYBURIDE Inactive AZITHROMYCIN 250 MG TABS 2 po qd x 1 day, then 1 po qd x 4 days AZITHROMYCIN 250 MG TABS 592252 AZITHROMYCIN Inactive PREDNISONE 20 MG TAB 2 tabs daily for 3 days, 1 tab daily for 3 days, 1/2 tab daily for 2 days PREDNISONE 20 MG TAB 106490 PREDNISONE Inactive PREDNISONE 20 MG TAB 2 tabs daily for 5 days, then 1 daily for 5 days, then 0.5 for 4 days PREDNISONE 20 MG TAB 948278 PREDNISONE Inactive AZITHROMYCIN 250 MG TABS 2 po qd x 1 day, then 1 po qd x 4 days AZITHROMYCIN 250 MG TABS 305048 AZITHROMYCIN Inactive PREDNISONE 20 MG TAB 2 tabs daily for 3 days, 1 tab daily for 3 days, 1/2 tab daily for 2 days PREDNISONE 20 MG TAB 035475 PREDNISONE Inactive TRIAMCINOLONE ACETONIDE 0.1 % OINT Apply to affected areas TID for up to 2 weeks TRIAMCINOLONE ACETONIDE 0.1 % OINT 7773931 TRIAMCINOLONE ACETONIDE Inactive AUGMENTIN 875-125 MG ORAL TABS 1 po BID x 10 days AUGMENTIN 875-125 MG ORAL TABS 313366 AMOXICILLIN-POT CLAVULANATE Inactive Immunizations Vaccine Administration Date [...] Peptide - Chemistry sodium, serum 142 mmol/L 970-938 0496/07/18 potassium, serum 5.0 mmol/L 3.5-5.2 chloride, serum [...] Panel - Chemistry sodium, serum 140 mmol/L 977-732 4605/07/13 carbon dioxide, venous blood 23.7 mmol/L 21.0-32.0 [...] Panel - Chemistry cholesterol, serum 126 mg/dL 308-740 9220/02/07 triglyceride, serum, fasting 83 mg/dL 30-200 HDL cholesterol, serum 70 mg/dL 32-96 LDL cholesterol, serum 39 mg/dL 0-130 hemoglobin A1C, blood, as % of total hemoglobin 8.3 % 4.3-6.0 sodium, serum 141 mmol/L 261-358 3494/02/07 carbon dioxide, venous blood 26.0 mmol/L 21.0-32.0 [...] 0.00-1.00 Encounters Code Encounter Date Provider Facility CPT-21953 Level 4 Est. Patient 08:48:38 CDT Simon Castillo MD [facility] CPT-82930 Level 4 Est. Patient 09:54:08 CDT Simon Castillo MD [facility] CPT-49074 Level 4 Est. Patient 16:11:23 CDT Simon Castillo MD [facility] CPT-23338 Level 4 Est. Patient 09:29:28 WASTE[employer]ERIALS EXCHANGE SPECIALIST Simon Castillo MD [facility] CPT-36305 Level 3 Est. Patient 09:18:25 CDT Simon Castillo MD [facility] CPT-70884 Level 4 Est. Patient 11:51:23 CDT Simon Castillo MD [facility] CPT-45547 Level 4 Est. Patient 14:32:04 CDT Neto Oshea DO [facility] CPT-19412 Level 3 Est. Patient 08:41:43 CDT Jimeli Nashamayal [facility] CPT-95479 Level 3 Est. Patient 08:40:53 CDT Jillina Frazell [facility] CPT-08312 Level 3 Est. Patient 08:36:52 CDT Jillina Frazell [facility] CPT-08455 Level 3 Est. Patient 09:08:44 CDT Jimeli Nashamayal [facility] CPT-82029 Level 4 Est. Patient 09:17:32 WASTE/MATERIALS EXCHANGE SPECIALIST Simon Castillo MD [facility] CPT-10542 Level 3 Est. Patient 11:22:22 WASTE/MATERIALS EXCHANGE SPECIALIST Simon Castillo MD [facility] CPT-51965 Level 3 Est. Patient 09:02:14 CDT Simon Castillo MD [facility] CPT-29989 Level 4 Est. Patient 08:47:25 CDT Simon Castillo MD [facility] CPT-65056 Level 4 Est. Patient 10:17:25 CDT Simon Castillo MD [facility] CPT-84916 Level 4 Est. Patient 10:10:09 WASTE/MATERIALS EXCHANGE SPECIALIST Simon Castillo MD [facility] CPT-42286 Level 4 Est. Patient 11:48:19 CDT Simon Castillo MD [facility] CPT-54452 Level 4 Est. Patient 08:59:29 CDT Simon Castillo MD [facility] CPT-93319 Level 4 Est. Patient 10:52:51 WASTE/MATERIALS EXCHANGE SPECIALIST Simon Castillo MD [facility] CPT-95700 Level 4 Est. Patient 11:50:30 CDT Simon Castillo MD [facility] CPT-03716 Level 4 Est. Patient 09:54:46 CDT Simon Castillo MD [facility] CPT-91897 Level 3 Est. Patient 11:10:14 CDT Simon Castillo MD [facility] CPT-79878 Level 4 Est. Patient 09:44:02 CDT Simon Castillo MD [facility] CPT-94982 Level 3 Est. Patient 09:27:48 CDT Simon Castillo MD [facility] CPT-70923 Level 3 Est. Patient 09:58:06 WASTE/MATERIALS EXCHANGE SPECIALIST Simon Castillo MD [facility] CPT-85563 Level 3 Est. Patient 09:51:35 CDT Simon Castillo MD [facility] Procedures Code Procedure Name Date Entry Date Standard Description CPT-60344 First Vx - Ix admin for Medicare patients 09:13:10 CDT CPT-24123 Fluzone High-Dose Intramuscular Suspension 09:13:10 CDT CPT-G0439 [facility] Annual Wellness Exam 09:41:17 CDT CPT-59057 Lipid - LAB USE ONLY 17:15:33 CDT CPT-37041 HGBA1C - LAB USE ONLY 17:15:33 CDT CPT-93134 CMP - LAB USE ONLY 17:15:33 CDT CPT-59807 Venipuncture Draw Fee 17:15:33 CDT CPT-TCM Transitional Care Mgmt-High 11:01:28 WASTE/MATERIALS EXCHANGE SPECIALIST CPT-82469 First Vx - Ix admin for Medicare patients 17:33:39 CDT CPT-26068 Fluzone High-Dose Intramuscular Suspension 17:33:39 CDT CPT-G0438 Initial Annual Wellness Exam 08:57:30 CDT CPT-43059 Chest 2V Frontal and Lat - XRAY USE ONLY 09:00:14 CDT CPT-53484 Venipuncture Draw Fee 13:33:02 CDT CPT-81569 Bone Density 09:37:49 WASTE/MATERIALS EXCHANGE SPECIALIST CPT-72403 Fluzone High Dose 17:20:42 CDT CPT-30023 Prevnar 13 17:20:42 CDT CPT-19038 Administration 2+ single or combination vaccines inc oral 17:20:42 CDT CPT-22073 Administration single or combination vaccine inc oral 17 :20:42 CDT CPT-09865 Hand comp min 3V 09:24:38 CDT CPT-05686 Venipuncture Draw Fee 08:07:29 WASTE/[employer]ERIALS EXCHANGE SPECIALIST CPT-96676 Venipuncture Draw Fee 09:02:51 WASTE/MATERIALS EXCHANGE SPECIALIST CPT-34934 Venipuncture Draw Fee 12:45:08 WASTE/MATERIALS EXCHANGE SPECIALIST CPT-89457 Venipuncture Draw Fee 09:25:31 CDT CPT-G0008 Administration of Influenza Virus Vaccine 14:41:29 CDT CPT-42210 Fluzone High-Dose Intramuscular Suspension 14:41:29 CDT CPT-Cryo Cryotherapy 11:48:20 CDT CPT-51428 EKG Trac and Interp 09:21:58 CDT CPT-65329 Chest 2V Frontal and Lat 09:21:58 CDT CPT-Cryo Cryotherapy 10:54:51 WASTE/MATERIALS EXCHANGE SPECIALIST CPT-05705 Administration 2+ single or combination vaccines inc oral 10:42:19 CDT CPT-16775 Administration single or combination vaccine inc oral 10 :42:19 CDT CPT-20036 Pneumovax 10:42:19 CDT CPT-87628 Influenza High Dose age 65+ 10:42:19 CDT CPT-89269 Administration single or combination vaccine inc oral 13 :18:54 CDT CPT-65103 Influenza High Dose age 65+ 13:18:54 CDT CPT-94512 Venipuncture Draw Fee 11:53:16 CDT CPT-08255 LS spine comp w obliq 11:03:13 CDT CPT-Cryo Cryotherapy 08:27:16 WASTE/MATERIALS EXCHANGE SPECIALIST CPT-46844 Administration single or combination vaccine inc oral 10 :56:34 CDT CPT-87104 Influenza High Dose age 65+ 10:56:34 CDT
--- OUTSIDE RECORDS SUMMARY | 2018-03-31 18:44 | XMS REPORT | Clinical Summary ---
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 Inactive Simon Castillo MD Pharyngitis ICD-462 Inactive Simon Castillo MD Medication List Medication Instructions Start Date Stop Date Generic Name NDC Status Provider Patient Instruction PIOGLITAZONE HCL 30 MG ORAL TABS 1 po qd PIOGLITAZONE HCL 95529619094 Active Simon Castillo MD Active GLIMEPIRIDE 4 MG ORAL TABS 1 po BID GLIMEPIRIDE 81703798209 Active Simon Castillo MD Active ASPIRIN EC 81 MG ORAL TBEC 1 po qd ASPIRIN 62415498040 Active Simon Castillo MD Active CLOTRIMAZOLE 1 % EXT CREA Apply to affected area of feet twice daily PRN Rash CLOTRIMAZOLE 16532825584 No Longer Active Simon Castillo MD Active PREDNISONE 5 MG TAB 1 po BID PREDNISONE 30698065526 Active Simon Castillo MD Active FISH OIL 1000 MG CPDR 1 po BID OMEGA-3 FATTY ACIDS 32029082238 Active Simon Castillo MD Active LISINOPRIL 10 MG TABS 1 p qd LISINOPRIL 42860984485 Active Simon Castillo MD Active CLARITIN 10 MG TAB 1 tablet by mouth daily as needed for allergies LORATADINE 58067522452 No Longer Active Simon Castillo MD Active TRIAMCINOLONE ACETONIDE 0.1 % OINT Apply to affected areas TID for up to 2 weeks TRIAMCINOLONE ACETONIDE 42128021647 No Longer Active Simon Castillo MD Active LASIX 20 MG TAB 1 tablet by mouth daily x 2 days FUROSEMIDE 56284881987 No Longer Active Simon Castillo MD Active SULFASALAZINE 500 MG ORAL TBEC 2 tabs BID SULFASALAZINE 01904444219 No Longer Active Neto Oshea DO Active PREDNISONE 20 MG TAB 2 tabs daily for 3 days, 1 tab daily for 3 days, 1/2 tab daily for 2 days PREDNISONE 28831167806 No Longer Active Giles Salcidol 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 PREDNISONE 20 MG TAB 1 tablet daily for airway inflammation 02/25 PREDNISONE 31628962563 No Longer Active Jillina Frazell 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 AZITHROMYCIN 250 MG TABS 2 po qd x 1 day, then 1 po qd x 4 days AZITHROMYCIN 05990167290 No Longer Active Jillina 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 HYDROCODONE-ACETAMINOPHEN 5-325 MG TABS 1 tab by mouth 8 hours as needed for pain HYDROCODONE-ACETAMINOPHEN 66554224747 Active Simon Castillo MD Active TRAMADOL HCL 50 MG TABS 1 po q6hr PRN Pain TRAMADOL HCL 63780704589 No Longer Active Simon Castillo MD Active PREDNISONE 5 MG TABS 1 po qod PREDNISONE 11589890101 No Longer Active Simon Castillo MD Active SYMBICORT 160-4.5 MCG/ACT AERO 2 puff BID BUDESONIDE- FORMOTEROL FUMARATE 66868921733 No Longer Active Simon Castillo MD Active FLONASE 50 MCG/ACT SUSP 2 puffs in each nostril daily FLUTICASONE PROPIONATE 14829489662 No Longer Active Simon Castillo MD Active PREDNISONE 20 MG TAB 2 tabs daily for 5 days, then 1 daily for 5 days PREDNISONE 08954485196 No Longer Active Simon Castillo MD Active PREDNISONE 20 MG TAB 2 tabs daily for 5 days, then 1 daily for 5 days, then 0.5 for 4 days PREDNISONE 07430797642 No Longer Active Simon Castillo MD Active PREDNISONE 20 MG TAB 2 tabs daily for 3 days, 1 tab daily for 3 days, 1/2 tab daily for 2 days PREDNISONE 39230062717 No Longer Active Simon Castillo MD Active AZITHROMYCIN 250 MG TABS 2 po qd x 1 day, then 1 po qd x 4 days AZITHROMYCIN 00171567039 No Longer Active Simon Castillo MD Active CARVEDILOL 6.25 MG TABS 1 po BID CARVEDILOL 62073222454 Active Simon Castillo MD Active LISINOPRIL-HYDROCHLOROTHIAZIDE 20-12.5 MG TABS 1/2 tab by mouth daily LISINOPRIL-HYDROCHLOROTHIAZIDE 25430041688 No Longer Active Simon Castillo MD Active TRAMADOL HCL 50 MG TABS 1-2 tablets every 6 hours as needed for pain TRAMADOL HCL 25062599920 Active Giles Tatum APRN Active PREDNISONE 5 MG TAB Take one po qod PREDNISONE 11727856592 No Longer Active Simon Castillo MD Active GLYBURIDE 5 MG TAB Take one by mouth daily GLYBURIDE 68801207364 No Longer Active Simon Castillo MD Active LEVAQUIN 750 MG TABS 1 po qod x 5 doses LEVOFLOXACIN 50190420649 No Longer Active Simon Castillo MD Active CETIRIZINE HCL 10 MG TABS 1 po qd as needed for allergies CETIRIZINE HCL 36683766262 No Longer Active Simon Castillo MD Active BILBERRY CAPS 1 tab daily BILBERRY (VACCINIUM MYRTILLUS) CAPS 87072617652 Active Simon Castillo MD Active ATENOLOL 50 MG TABS Take one by mouth daily ATENOLOL 52317543424 No Longer Active Simon Castillo MD Active FLONASE 50 MCG/ACT SUSP 2 puffs in each nostril daily FLUTICASONE PROPIONATE 19141926700 No Longer Active Simon Castillo MD Active GLYBURIDE 5 MG TAB Take one by mouth daily GLYBURIDE 09357484937 No Longer Active Simon Castillo MD Active SYMBICORT 80-4.5 MCG/ACT AERO 2 puffs twice a day BUDESONIDE-FORMOTEROL FUMARATE 95087774155 No Longer Active Simon Castillo MD Active PREDNISONE 20 MG TAB 2 tabs daily for 4 days, 1 tab daily for 4 days, 1/2 tab daily for 4 days PREDNISONE 53532621602 No Longer Active Simon Castillo MD Active AMOXICILLIN 500 MG CAPS 2 po BID x 10 days AMOXICILLIN 17316717890 No Longer Active Simon Castillo MD Active METFORMIN HCL 1000 MG TABS 1 by mount twice a day METFORMIN HCL 37968257166 No Longer Active Simon Castillo MD Active LUTEIN-ZEAXANTHIN 6-1 MG TABS Take 2 by mouth daily LUTEIN-ZEAXANTHIN 66892176850 Active Simon Castillo MD Active IBUPROFEN 800 MG TABS Take 1 tab every 6 hrs prn IBUPROFEN 23836383211 No Longer Active Simon Castillo MD Active GLYBURIDE 2.5 MG TABS Take one by mouth daily GLYBURIDE 82897412886 No Longer Active Simon Castillo MD Active LANCETS MISC 2 qd LANCETS 37281453697 Active Pamela Conde Active ACACIA CONTOUR TEST STRP Use with testing twice daily GLUCOSE BLOOD 29361691657 Active Simon Castillo MD Active GLYBURIDE 2.5 MG TABS Take one by mouth daily GLYBURIDE 2.5 MG TABS 058658 GLYBURIDE Inactive PREDNISONE 20 MG TAB 2 tabs daily for 4 days, 1 tab daily for 4 days, 1/2 tab daily for 4 days PREDNISONE 20 MG TAB 796988 PREDNISONE Inactive SYMBICORT 80-4.5 MCG/ACT AERO 2 puffs twice a day SYMBICORT 80-4.5 MCG/ACT AERO BUDESONIDE-FORMOTEROL FUMARATE Inactive FLONASE 50 MCG/ACT SUSP 2 puffs in each nostril daily FLONASE 50 MCG/ACT SUSP 8245553 FLUTICASONE PROPIONATE Inactive ATENOLOL 50 MG TABS Take one by mouth daily ATENOLOL 50 MG TABS 328936 ATENOLOL Inactive CETIRIZINE HCL 10 MG TABS 1 po qd as needed for allergies CETIRIZINE HCL 10 MG TABS 9706707 CETIRIZINE HCL Inactive LEVAQUIN 750 MG TABS 1 po qod x 5 doses LEVAQUIN 750 MG TABS 724049 LEVOFLOXACIN Inactive GLYBURIDE 5 MG TAB Take one by mouth daily GLYBURIDE 5 MG TAB 411942 GLYBURIDE Inactive PREDNISONE 5 MG TAB Take one po qod PREDNISONE 5 MG TAB 056967 PREDNISONE Inactive PREDNISONE 20 MG TAB 2 tabs daily for 5 days, then 1 daily for 5 days PREDNISONE 20 MG TAB 746991 PREDNISONE Inactive FLONASE 50 MCG/ACT SUSP 2 puffs in each nostril daily FLONASE 50 MCG/ACT SUSP 9925693 FLUTICASONE PROPIONATE Inactive SYMBICORT 160-4.5 MCG/ACT AERO 2 puff BID SYMBICORT 160-4.5 MCG/ACT AERO BUDESONIDE-FORMOTEROL FUMARATE Inactive PREDNISONE 5 MG TABS 1 po qod PREDNISONE 5 MG TABS 398445 PREDNISONE Inactive PREDNISONE 20 MG TAB 1 tablet daily for airway inflammation 02/25 PREDNISONE 20 MG TAB 931543 PREDNISONE Inactive SULFASALAZINE 500 MG ORAL TBEC 2 tabs BID SULFASALAZINE 500 MG ORAL TBEC 687643 SULFASALAZINE Inactive LASIX 20 MG TAB 1 tablet by mouth daily x 2 days LASIX 20 MG TAB 945185 FUROSEMIDE Inactive CLARITIN 10 MG TAB 1 tablet by mouth daily as needed for allergies CLARITIN 10 MG TAB 737088 LORATADINE Inactive CLOTRIMAZOLE 1 % EXT CREA Apply to affected area of feet twice daily PRN Rash CLOTRIMAZOLE 1 % EXT CREA 604149 CLOTRIMAZOLE Inactive AMOXICILLIN 500 MG CAPS 2 po BID x 10 days AMOXICILLIN 500 MG CAPS 937815 AMOXICILLIN Inactive GLYBURIDE 5 MG TAB Take one by mouth daily GLYBURIDE 5 MG TAB 936728 GLYBURIDE Inactive AZITHROMYCIN 250 MG TABS 2 po qd x 1 day, then 1 po qd x 4 days AZITHROMYCIN 250 MG TABS 4081211 AZITHROMYCIN Inactive PREDNISONE 20 MG TAB 2 tabs daily for 3 days, 1 tab daily for 3 days, 1/2 tab daily for 2 days PREDNISONE 20 MG TAB 156302 PREDNISONE Inactive PREDNISONE 20 MG TAB 2 tabs daily for 5 days, then 1 daily for 5 days, then 0.5 for 4 days PREDNISONE 20 MG TAB 343697 PREDNISONE Inactive AZITHROMYCIN 250 MG TABS 2 po qd x 1 day, then 1 po qd x 4 days AZITHROMYCIN 250 MG TABS 6146585 AZITHROMYCIN Inactive PREDNISONE 20 MG TAB 2 tabs daily for 3 days, 1 tab daily for 3 days, 1/2 tab daily for 2 days PREDNISONE 20 MG TAB 720431 PREDNISONE Inactive TRIAMCINOLONE ACETONIDE 0.1 % OINT Apply to affected areas TID for up to 2 weeks TRIAMCINOLONE ACETONIDE 0.1 % OINT 3841207 TRIAMCINOLONE ACETONIDE Inactive Immunizations Vaccine Administration Date [...] Panel - Chemistry cholesterol, serum 126 mg/dL 281-244 9320/02/07 triglyceride, serum, fasting 83 mg/dL 30-200 HDL cholesterol, serum 70 mg/dL 32-96 LDL cholesterol, serum 39 mg/dL 0-130 hemoglobin A1C, blood, as % of total hemoglobin 8.3 % 4.3-6.0 sodium, serum 141 mmol/L 057-815 6261/02/07 carbon dioxide, venous blood 26.0 mmol/L 21.0-32.0 [...] 0.00-1.00 Encounters Code Encounter Date Provider Facility CPT-13433 Level 4 Est. Patient 09:54:08 CDT Simon Castillo MD [facility] CPT-43131 Level 4 Est. Patient 16:11:23 CDT Simon Castillo MD [facility] CPT-83539 Level 4 Est. 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 Patient 09:18:25 CDT Simon Castillo MD [facility] CPT-43587 Level 4 Est. Patient 11:51:23 CDT Simon Castillo MD [facility] CPT-81366 Level 4 Est. Patient 14:32:04 CDT Neto Oshea DO [facility] CPT-94646 Level 3 Est. Patient 08:41:43 CDT Giles Tatum [facility] CPT-61381 Level 3 Est. Patient 08:40:53 CDT Giles Tatum [facility] CPT-69338 Level 3 Est. Patient 08:36:52 CDT Giles Tatum [facility] CPT-34382 Level 3 Est. Patient 09:08:44 CDT Giles Tatum [facility] CPT-05304 Level 4 Est. 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 Patient 11:22:22 MILK TANKER DRIVER Simon Castillo MD [facility] CPT-25007 Level 3 Est. Patient 09:02:14 CDT Simon Castillo MD [facility] CPT-03941 Level 4 Est. Patient 08:47:25 CDT Simon Castillo MD [facility] CPT-73064 Level 4 Est. Patient 10:17:25 CDT Simon Castillo MD [facility] CPT-81175 Level 4 Est. Patient 10:10:09 MILK TANKER DRIVER Simon Castillo MD [facility] CPT-67246 Level 4 Est. Patient 11:48:19 CDT Simon Castillo MD [facility] CPT-93983 Level 4 Est. Patient 08:59:29 CDT Simon Castillo MD [facility] CPT-67572 Level 4 Est. Patient 10:52:51 MILK TANKER DRIVER Simon Castillo MD [facility] CPT-44373 Level 4 Est. Patient 11:50:30 CDT Simon Castillo MD [facility] CPT-40161 Level 4 Est. Patient 09:54:46 CDT Simon Castillo MD [facility] CPT-48069 Level 3 Est. Patient 11:10:14 CDT Simon Castillo MD [facility] CPT-38707 Level 4 Est. Patient 09:44:02 CDT Simon Castillo MD [facility] CPT-51240 Level 3 Est. Patient 09:27:48 CDT Simon Castillo MD [facility] CPT-64776 Level 3 Est. Patient 09:58:06 MILK TANKER DRIVER Simon Castillo MD [facility] CPT-00058 Level 3 Est. Patient 09:51:35 CDT Simon Castillo MD [facility] Procedures Code Procedure Name Date Entry Date Standard Description CPT-70850 Lipid - LAB USE ONLY 17:15:33 CDT CPT-05802 HGBA1C - LAB USE ONLY 17:15:33 CDT CPT-58631 CMP - LAB USE ONLY 17:15:33 CDT CPT-79570 Venipuncture Draw Fee 17:15:33 CDT CPT-[facility] Transitional Care Mgmt-High 11:01:28 MILK TANKER DRIVER CPT-71924 First Vx - Ix admin for Medicare patients 17:33:39 CDT CPT-64167 Fluzone High-Dose Intramuscular Suspension 17:33:39 CDT CPT-G0438 Initial Annual Wellness Exam 08:57:30 CDT CPT-31463 Chest 2V Frontal and Lat - XRAY USE ONLY 09:00:14 CDT CPT-34480 Venipuncture Draw Fee 13:33:02 CDT CPT-73161 Bone Density 09:37:49 [employer]K [employer]ANKER DRIVER CPT-49105 Fluzone High Dose 17:20:42 CDT CPT-36616 Prevnar 13 17:20:42 CDT CPT-22524 Administration 2+ single or combination vaccines inc oral 17:20:42 CDT CPT-30225 Administration single or combination vaccine inc oral 17 :20:42 CDT CPT-58829 Hand comp min 3V 09:24:38 CDT CPT-91640 Venipuncture Draw Fee 08:07:29 [employer]K TANKER DRIVER CPT-90086 Venipuncture Draw Fee 09:02:51 [employer]K TANKER DRIVER CPT-84407 Venipuncture Draw Fee 12:45:08 [employer]K TANKER DRIVER CPT-57786 Venipuncture Draw Fee 09:25:31 CDT CPT-G0008 Administration of Influenza Virus Vaccine 14:41:29 CDT CPT-31686 Fluzone High-Dose Intramuscular Suspension 14:41:29 CDT CPT-Cryo Cryotherapy 11:48:20 CDT CPT-21294 EKG Trac and Interp 09:21:58 CDT CPT-45535 Chest 2V Frontal and Lat 09:21:58 CDT CPT-Cryo Cryotherapy 10:54:51 MILK TANKER DRIVER CPT-75947 Administration 2+ single or combination vaccines inc oral 10:42:19 CDT CPT-29312 Administration single or combination vaccine inc oral 10 :42:19 CDT CPT-00969 Pneumovax 10:42:19 CDT CPT-18535 Influenza High Dose age 65+ 10:42:19 CDT CPT-38905 Administration single or combination vaccine inc oral 13 :18:54 CDT CPT-37434 Influenza High Dose age 65+ 13:18:54 CDT CPT-93917 Venipuncture Draw Fee 11:53:16 CDT CPT-75617 LS spine comp w obliq 11:03:13 CDT CPT-Cryo Cryotherapy 08:27:16 MILK TANKER DRIVER CPT-99016 Administration single or combination vaccine inc oral 10 :56:34 CDT CPT-44304 Influenza High Dose age 65+ 10:56:34 CDT
--- OUTSIDE RECORDS SUMMARY | 2018-03-31 18:45 | XMS REPORT | Clinical Summary ---
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 ICD-V58.65 Kerry Castillo MD Hand pain, [...] ORAL TABS 1 po qd PIOGLITAZONE HCL 65611358838 Active Simon Castillo MD Active GLIMEPIRIDE 4 MG ORAL TABS 1 po BID GLIMEPIRIDE 44156633592 Active Simon Castillo MD Active ASPIRIN EC 81 MG ORAL TBEC 1 po qd ASPIRIN 26751923203 Active Simon Castillo MD Active CLOTRIMAZOLE 1 % EXT CREA Apply to affected area of feet twice daily PRN Rash CLOTRIMAZOLE 14909877958 No Longer Active Simon Castillo MD Active PREDNISONE 5 MG TAB 1 po BID PREDNISONE 05599226725 Active Simon Castillo MD Active FISH OIL 1000 MG CPDR 1 po BID OMEGA-3 FATTY ACIDS 82416097573 Active Simon Castillo MD Active LISINOPRIL 10 MG TABS 1 p qd LISINOPRIL 50214112874 Active Simon Castillo MD Active CLARITIN 10 MG TAB 1 tablet by mouth daily as needed for allergies LORATADINE 29798281903 No Longer Active Simon Castillo MD Active TRIAMCINOLONE ACETONIDE 0.1 % OINT Apply to affected areas TID for up to 2 weeks TRIAMCINOLONE ACETONIDE 02174393929 No Longer Active Simon Castillo MD Active LASIX 20 MG TAB 1 tablet by mouth daily x 2 days FUROSEMIDE 51293588064 No Longer Active Simon Castillo MD Active SULFASALAZINE 500 MG ORAL TBEC 2 tabs BID SULFASALAZINE 64811425762 No Longer Active Neto Oshea DO Active PREDNISONE 20 MG TAB 2 tabs daily for 3 days, 1 tab daily for 3 days, 1/2 tab daily for 2 days PREDNISONE 11501775228 No Longer Active Jillina Frazell 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 PREDNISONE 20 MG TAB 1 tablet daily for airway inflammation 02/25 PREDNISONE 69392918796 No Longer Active Jillina Frazell 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 AZITHROMYCIN 250 MG TABS 2 po qd x 1 day, then 1 po qd x 4 days AZITHROMYCIN 44409661979 No Longer Active Jillina Frazell [employer]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 HYDROCODONE-ACETAMINOPHEN 5-325 MG TABS 1 tab by mouth 8 hours as needed for pain HYDROCODONE-ACETAMINOPHEN 96830839552 Active Simon Castillo MD Active TRAMADOL HCL 50 MG TABS 1 po q6hr PRN Pain TRAMADOL HCL 11714467304 No Longer Active Simon Castillo MD Active PREDNISONE 5 MG TABS 1 po qod PREDNISONE 89240005560 No Longer Active Simon Castillo MD Active SYMBICORT 160-4.5 MCG/ACT AERO 2 puff BID BUDESONIDE- FORMOTEROL FUMARATE 78530955113 No Longer Active Simon Castillo MD Active FLONASE 50 MCG/ACT SUSP 2 puffs in each nostril daily FLUTICASONE PROPIONATE 65048633919 No Longer Active Simon Castillo MD Active PREDNISONE 20 MG TAB 2 tabs daily for 5 days, then 1 daily for 5 days PREDNISONE 83375102906 No Longer Active Simon Castillo MD Active PREDNISONE 20 MG TAB 2 tabs daily for 5 days, then 1 daily for 5 days, then 0.5 for 4 days PREDNISONE 67827666892 No Longer Active Simon Castillo MD Active PREDNISONE 20 MG TAB 2 tabs daily for 3 days, 1 tab daily for 3 days, 1/2 tab daily for 2 days PREDNISONE 45240002776 No Longer Active Simon Castillo MD Active AZITHROMYCIN 250 MG TABS 2 po qd x 1 day, then 1 po qd x 4 days AZITHROMYCIN 96197688864 No Longer Active Simon Castillo MD Active CARVEDILOL 6.25 MG TABS 1 po BID CARVEDILOL 74624121868 Active Simon Castillo MD Active LISINOPRIL-HYDROCHLOROTHIAZIDE 20-12.5 MG TABS 1/2 tab by mouth daily LISINOPRIL-HYDROCHLOROTHIAZIDE 53674488643 No Longer Active Simon Castillo MD Active TRAMADOL HCL 50 MG TABS 1-2 tablets every 6 hours as needed for pain TRAMADOL HCL 30354214020 Active Giles Tatum APRN Active PREDNISONE 5 MG TAB Take one po qod PREDNISONE 95223892557 No Longer Active Simon Castillo MD Active GLYBURIDE 5 MG TAB Take one by mouth daily GLYBURIDE 29880339746 No Longer Active Simon Castillo MD Active LEVAQUIN 750 MG TABS 1 po qod x 5 doses LEVOFLOXACIN 79696824874 No Longer Active Simon Castillo MD Active CETIRIZINE HCL 10 MG TABS 1 po qd as needed for allergies CETIRIZINE HCL 55514304705 No Longer Active Simon Castillo MD Active BILBERRY CAPS 1 tab daily BILBERRY (VACCINIUM MYRTILLUS) CAPS 71743432175 Active Simon Castillo MD Active ATENOLOL 50 MG TABS Take one by mouth daily ATENOLOL 71138131280 No Longer Active Simon Castillo MD Active FLONASE 50 MCG/ACT SUSP 2 puffs in each nostril daily FLUTICASONE PROPIONATE 52761222209 No Longer Active Simon Castillo MD Active GLYBURIDE 5 MG TAB Take one by mouth daily GLYBURIDE 22035137614 No Longer Active Simon Castillo MD Active SYMBICORT 80-4.5 MCG/ACT AERO 2 puffs twice a day BUDESONIDE-FORMOTEROL FUMARATE 05851938458 No Longer Active Simon Castillo MD Active PREDNISONE 20 MG TAB 2 tabs daily for 4 days, 1 tab daily for 4 days, 1/2 tab daily for 4 days PREDNISONE 68790311804 No Longer Active Simon Castillo MD Active AMOXICILLIN 500 MG CAPS 2 po BID x 10 days AMOXICILLIN 99376166604 No Longer Active Simon Castillo MD Active METFORMIN HCL 1000 MG TABS 1 by mounth twice a day METFORMIN HCL 90004433012 No Longer Active Simon Castillo MD Active LUTEIN-ZEAXANTHIN 6-1 MG TABS Take 2 by mouth daily LUTEIN-ZEAXANTHIN 28428079192 Active Simon Castillo MD Active IBUPROFEN 800 MG TABS Take 1 tab every 6 hrs prn IBUPROFEN 51516496937 No Longer Active Simon Castillo MD Active GLYBURIDE 2.5 MG TABS Take one by mouth daily GLYBURIDE 02254184885 No Longer Active Simon Castillo MD Active LANCETS MISC 2 qd LANCETS 12625362387 Active Pamela Conde Active ACACIA CONTOUR TEST STRP Use with testing twice daily GLUCOSE BLOOD 09090905732 Active Simon Castillo MD Active GLYBURIDE 2.5 MG TABS Take one by mouth daily GLYBURIDE 2.5 MG TABS 768352 GLYBURIDE Inactive PREDNISONE 20 MG TAB 2 tabs daily for 4 days, 1 tab daily for 4 days, 1/2 tab daily for 4 days PREDNISONE 20 MG TAB 594400 PREDNISONE Inactive SYMBICORT 80-4.5 MCG/ACT AERO 2 puffs twice a day SYMBICORT 80-4.5 MCG/ACT AERO BUDESONIDE-FORMOTEROL FUMARATE Inactive FLONASE 50 MCG/ACT SUSP 2 puffs in each nostril daily FLONASE 50 MCG/ACT SUSP 4488451 FLUTICASONE PROPIONATE Inactive ATENOLOL 50 MG TABS Take one by mouth daily ATENOLOL 50 MG TABS 700204 ATENOLOL Inactive CETIRIZINE HCL 10 MG TABS 1 po qd as needed for allergies CETIRIZINE HCL 10 MG TABS 0505456 CETIRIZINE HCL Inactive LEVAQUIN 750 MG TABS 1 po qod x 5 doses LEVAQUIN 750 MG TABS 579903 LEVOFLOXACIN Inactive GLYBURIDE 5 MG TAB Take one by mouth daily GLYBURIDE 5 MG TAB 787926 GLYBURIDE Inactive PREDNISONE 5 MG TAB Take one po qod PREDNISONE 5 MG TAB 474347 PREDNISONE Inactive PREDNISONE 20 MG TAB 2 tabs daily for 5 days, then 1 daily for 5 days PREDNISONE 20 MG TAB 967392 PREDNISONE Inactive FLONASE 50 MCG/ACT SUSP 2 puffs in each nostril daily FLONASE 50 MCG/ACT SUSP 0820863 FLUTICASONE PROPIONATE Inactive SYMBICORT 160-4.5 MCG/ACT AERO 2 puff BID SYMBICORT 160-4.5 MCG/ACT AERO BUDESONIDE-FORMOTEROL FUMARATE Inactive PREDNISONE 5 MG TABS 1 po qod PREDNISONE 5 MG TABS 204560 PREDNISONE Inactive PREDNISONE 20 MG TAB 1 tablet daily for airway inflammation 02/25 PREDNISONE 20 MG TAB 482191 PREDNISONE Inactive SULFASALAZINE 500 MG ORAL TBEC 2 tabs BID SULFASALAZINE 500 MG ORAL TBEC 428564 SULFASALAZINE Inactive LASIX 20 MG TAB 1 tablet by mouth daily x 2 days LASIX 20 MG TAB 813203 FUROSEMIDE Inactive CLARITIN 10 MG TAB 1 tablet by mouth daily as needed for allergies CLARITIN 10 MG TAB 654121 LORATADINE Inactive CLOTRIMAZOLE 1 % EXT CREA Apply to affected area of feet twice daily PRN Rash CLOTRIMAZOLE 1 % EXT CREA 468981 CLOTRIMAZOLE Inactive AMOXICILLIN 500 MG CAPS 2 po BID x 10 days AMOXICILLIN 500 MG CAPS 670150 AMOXICILLIN Inactive GLYBURIDE 5 MG TAB Take one by mouth daily GLYBURIDE 5 MG TAB 986726 GLYBURIDE Inactive AZITHROMYCIN 250 MG TABS 2 po qd x 1 day, then 1 po qd x 4 days AZITHROMYCIN 250 MG TABS 2216906 AZITHROMYCIN Inactive PREDNISONE 20 MG TAB 2 tabs daily for 3 days, 1 tab daily for 3 days, 1/2 tab daily for 2 days PREDNISONE 20 MG TAB 600290 PREDNISONE Inactive PREDNISONE 20 MG TAB 2 tabs daily for 5 days, then 1 daily for 5 days, then 0.5 for 4 days PREDNISONE 20 MG TAB 463824 PREDNISONE Inactive AZITHROMYCIN 250 MG TABS 2 po qd x 1 day, then 1 po qd x 4 days AZITHROMYCIN 250 MG TABS 7490533 AZITHROMYCIN Inactive PREDNISONE 20 MG TAB 2 tabs daily for 3 days, 1 tab daily for 3 days, 1/2 tab daily for 2 days PREDNISONE 20 MG TAB 850476 PREDNISONE Inactive TRIAMCINOLONE ACETONIDE 0.1 % OINT Apply to affected areas TID for up to 2 weeks TRIAMCINOLONE ACETONIDE 0.1 % OINT 5061354 TRIAMCINOLONE ACETONIDE Inactive Immunizations Vaccine Administration Date [...] Panel - Chemistry cholesterol, serum 126 mg/dL 177-695 7882/02/07 triglyceride, serum, fasting 83 mg/dL 30-200 HDL cholesterol, serum 70 mg/dL 32-96 LDL cholesterol, serum 39 mg/dL 0-130 hemoglobin A1C, blood, as % of total hemoglobin 8.3 % 4.3-6.0 sodium, serum 141 mmol/L 588-548 0250/02/07 carbon dioxide, venous blood 26.0 mmol/L 21.0-32.0 [...] 0.00-1.00 Encounters Code Encounter Date Provider Facility CPT-00863 Level 4 Est. Patient 09:54:08 CDT Simon Castillo MD [facility] CPT-61140 Level 4 Est. Patient 16:11:23 CDT Simon Castillo MD [facility] CPT-86392 Level 4 Est. Patient 09:29:28 [employer] Simon Castillo MD [facility] CPT-12395 Level 3 Est. Patient 09:18:25 CDT Simon Castillo MD [facility] CPT-29608 Level 4 Est. Patient 11:51:23 CDT Simon Castillo MD [facility] CPT-40942 Level 4 Est. Patient 14:32:04 CDT Neto Oshea DO [facility] CPT-44494 Level 3 Est. Patient 08:41:43 CDT Giles Tatum [facility] CPT-11810 Level 3 Est. Patient 08:40:53 CDT Giles Tatum [facility] [place] CPT-97568 Level 3 Est. Patient 08:36:52 CDT Giles Tatum [facility] [place] CPT-02202 Level 3 Est. Patient 09:08:44 CDT Giles Salcidoalejandrina HEMPHILL [facility] CPT-02368 Level 4 Est. Patient 09:17:32 [employer] Simon Castillo MD [facility] CPT-17047 Level 3 Est. Patient 11:22:22 [employer] Simon Castillo MD [facility] CPT-70318 Level 3 Est. Patient 09:02:14 CDT Simon Castillo MD [facility] CPT-17601 Level 4 Est. Patient 08:47:25 CDT Simon Castillo MD [facility] CPT-91337 Level 4 Est. Patient 10:17:25 CDT Simon Castillo MD [facility] CPT-09172 Level 4 Est. Patient 10:10:09 [employer] Simon Castillo MD [facility] CPT-51867 Level 4 Est. Patient 11:48:19 CDT Simon Castillo MD [facility] CPT-21868 Level 4 Est. Patient 08:59:29 CDT Simon Castillo MD [facility] CPT-91123 Level 4 Est. Patient 10:52:51 [employer] Simon Castillo MD [facility] CPT-81573 Level 4 Est. Patient 11:50:30 CDT Simon Castillo MD [facility] CPT-80210 Level 4 Est. Patient 09:54:46 CDT Simon Castillo MD [facility] CPT-40391 Level 3 Est. Patient 11:10:14 CDT Simon Castillo MD [facility] CPT-01946 Level 4 Est. Patient 09:44:02 CDT Simon Castillo MD [facility] CPT-75897 Level 3 Est. Patient 09:27:48 CDT Simon Castillo MD [facility] CPT-63526 Level 3 Est. Patient 09:58:06 [employer] Simon Castillo MD [facility] CPT-00947 Level 3 Est. Patient 09:51:35 CDT Simon Castillo MD [facility] Procedures Code Procedure Name Date Entry Date Standard Description CPT-G0439 Subsequent Annual Wellness Exam 09:41:17 CDT CPT-40961 Lipid - LAB USE ONLY 17:15:33 CDT CPT-56020 HGBA1C - LAB USE ONLY 17:15:33 CDT CPT-51527 CMP - LAB USE ONLY 17:15:33 CDT CPT-98218 Venipuncture Draw Fee 17:15:33 CDT CPT-[facility] Transitional Care Mgmt-High 11:01:28 [employer] CPT-90981 First Vx - Ix admin for Medicare patients 17:33:39 CDT CPT-57559 Fluzone High-Dose Intramuscular Suspension 17:33:39 CDT CPT-G0438 Initial Annual Wellness Exam 08:57:30 CDT CPT-60475 Chest 2V Frontal and Lat - XRAY USE ONLY 09:00:14 CDT CPT-05087 Venipuncture Draw Fee 13:33:02 CDT CPT-83957 Bone Density 09:37:49 [employer] CPT-21068 Fluzone High Dose 17:20:42 CDT CPT-37244 Prevnar 13 17:20:42 CDT CPT-55933 Administration 2+ single or combination vaccines inc oral 17:20:42 CDT CPT-94156 Administration single or combination vaccine inc oral 17 :20:42 CDT CPT-53087 Hand comp min 3V 09:24:38 CDT CPT-56669 Venipuncture Draw Fee 08:07:29 [employer] CPT-50121 Venipuncture Draw Fee 09:02:51 [employer] CPT-18907 Venipuncture Draw Fee 12:45:08 [employer] CPT-80758 Venipuncture Draw Fee 09:25:31 CDT CPT-G0008 Administration of Influenza Virus Vaccine 14:41:29 CDT CPT-10120 Fluzone High-Dose Intramuscular Suspension 14:41:29 CDT CPT-Cryo Cryotherapy 11:48:20 CDT CPT-91676 EKG Trac and Interp 09:21:58 CDT CPT-40649 Chest 2V Frontal and Lat 09:21:58 CDT CPT-Cryo Cryotherapy 10:54:51 [employer] CPT-90354 Administration 2+ single or combination vaccines inc oral 10:42:19 CDT CPT-99935 Administration single or combination vaccine inc oral 10 :42:19 CDT CPT-62680 Pneumovax 10:42:19 CDT CPT-32456 Influenza High Dose age 65+ 10:42:19 CDT CPT-34240 Administration single or combination vaccine inc oral 13 :18:54 CDT CPT-25070 Influenza High Dose age 65+ 13:18:54 CDT CPT-34353 Venipuncture Draw Fee 11:53:16 CDT CPT-51678 LS spine comp w obliq 11:03:13 CDT CPT-Cryo Cryotherapy 08:27:16 [employer] CPT-46268 Administration single or combination vaccine inc oral 10 :56:34 CDT CPT-77643 Influenza High Dose age 65+ 10:56:34 CDT
--- OUTSIDE RECORDS SUMMARY | 2018-03-31 18:46 | XMS REPORT | Clinical Summary ---
Author Author Admin, [employer] Organization [employer] Address Unknown Phone Unavailable Allergies, Adverse Reactions, [...] arthritis Pharyngitis 462 Active Jillina Frazell [employer] Acute pharyngitis Dyspnea 786.09 Active Jillina Frazell [employer] Other dyspnea and respiratory abnormality Peripheral edema 782.3 Active Jillina Frazell [employer] Edema FH DIABETES ICD-V18.0 Inactive Simon Castillo MD FH LUNG CANCER ICD-V16.1 Inactive Simon Castillo MD ABDOMINAL TENDERNESS ICD-789.60 Inactive Simon Castillo MD CHEST WALL PAIN, HX OF ICD-V15.89 Inactive Simno Castillo MD SEBORRHEIC KERATOSIS ICD-702.19 Inactive Simon [...] ICD-729.5 Inactive Simon Castillo MD Steroid use, fdc ICD-V58.65 Inactive Simon Castillo MD Hand pain, bilateral ICD-729.5 Kerry Castillo MD Medication List Medication Instructions Start Date Stop Date Generic Name NDC Status Provider Patient Instruction LASIX 20 MG TAB 1 tablet by mouth daily x 2 days FUROSEMIDE 34479005342 Active Neto Oshea DO Active SULFASALAZINE 500 MG ORAL TBEC 2 tabs BID SULFASALAZINE 37645436932 No Longer Active Neto Oshea DO Active PREDNISONE 20 MG TAB 2 tabs daily for 3 days, 1 tab daily for 3 days, 1/2 tab daily for 2 days PREDNISONE 26402205397 Active Jillina Frazell [employer] Active PREDNISONE 20 MG TAB 1 tablet daily for airway inflammation 02/25 PREDNISONE 29071315954 No Longer Active Jillina Frazell [employer] Active CLARITIN 10 MG TAB 1 tablet by mouth daily as needed for allergies LORATADINE 15875298347 Active Jillina Frazell [employer] Active AZITHROMYCIN 250 MG TABS 2 po qd x 1 day, then 1 po qd x 4 days AZITHROMYCIN 96463488165 No Longer Active Jillina Frazell [employer] Active GLIMEPIRIDE 2 MG ORAL TABS 1 po q a.m. GLIMEPIRIDE 53166865357 Active Simon Castillo MD Active HYDROCODONE-ACETAMINOPHEN 5-325 MG TABS 1 tab by mouth 8 hours as needed for pain HYDROCODONE-ACETAMINOPHEN 78178913914 Active Simon Castillo MD Active TRAMADOL HCL 50 MG TABS 1 po q6hr PRN Pain TRAMADOL HCL 02874477428 No Longer Active Simon Castillo MD Active PREDNISONE 5 MG TAB 1-2 tabs daily for rheumatoid arthritis PREDNISONE 46095181511 Active Simon Castillo MD Active PREDNISONE 5 MG TABS 1 po qod PREDNISONE 66503615558 No Longer Active Simon Castillo MD Active SYMBICORT 160-4.5 MCG/ACT AERO 2 puff BID BUDESONIDE- FORMOTEROL FUMARATE 33219323946 No Longer Active Simon Castillo MD Active FLONASE 50 MCG/ACT SUSP 2 puffs in each nostril daily FLUTICASONE PROPIONATE 71017975823 No Longer Active Simon Castillo MD Active PREDNISONE 20 MG TAB 2 tabs daily for 5 days, then 1 daily for 5 days PREDNISONE 68104722588 No Longer Active Simon Castillo MD Active PREDNISONE 20 MG TAB 2 tabs daily for 5 days, then 1 daily for 5 days, then 0.5 for 4 days PREDNISONE 96585793931 No Longer Active Simon Castillo MD Active CLOTRIMAZOLE 1 % EXT CREA Apply to affected area of feet twice daily PRN Rash CLOTRIMAZOLE 98215186975 Active Simon Castillo MD Active PREDNISONE 20 MG TAB 2 tabs daily for 3 days, 1 tab daily for 3 days, 1/2 tab daily for 2 days PREDNISONE 45185577597 No Longer Active Simon Castillo MD Active AZITHROMYCIN 250 MG TABS 2 po qd x 1 day, then 1 po qd x 4 days AZITHROMYCIN 61334021933 No Longer Active Simon Castillo MD Active LISINOPRIL 10 MG TABS 1 tablet by mouth daily LISINOPRIL 67273266745 Active Simon Castillo MD Active CARVEDILOL 6.25 MG TABS 1 po BID CARVEDILOL 63309681350 Active Simon Castillo MD Active LISINOPRIL-HYDROCHLOROTHIAZIDE 20-12.5 MG TABS 1/2 tab by mouth daily LISINOPRIL-HYDROCHLOROTHIAZIDE 19310469494 No Longer Active Simon Castillo MD Active TRAMADOL HCL 50 MG TABS 1-2 tablets every 6 hours as needed for pain TRAMADOL HCL 48672125992 Active Giles Tatum APRN Active PREDNISONE 5 MG TAB Take one po qod PREDNISONE 91311527970 No Longer Active Simon Castillo MD Active GLYBURIDE 5 MG TAB Take one by mouth daily GLYBURIDE 42976582796 No Longer Active Simon Castillo MD Active LEVAQUIN 750 MG TABS 1 po qod x 5 doses LEVOFLOXACIN 10992146174 No Longer Active Simon Castillo MD Active CETIRIZINE HCL 10 MG TABS 1 po qd as needed for allergies CETIRIZINE HCL 70994075599 No Longer Active Simon Castillo MD Active FISH OIL 1000 MG CPDR 1 pill by mouth twice daily for cholesterol OMEGA -3 FATTY ACIDS 43683550775 Active Simon Castillo MD Active BILBERRY CAPS 1 tab daily BILBERRY (VACCINIUM MYRTILLUS) CAPS 57500994780 Active Simon Castillo MD Active ATENOLOL 50 MG TABS Take one by mouth daily ATENOLOL 22277941911 No Longer Active Simon Castillo MD Active FLONASE 50 MCG/ACT SUSP 2 puffs in each nostril daily FLUTICASONE PROPIONATE 38098993480 No Longer Active Simon Castillo MD Active GLYBURIDE 5 MG TAB Take one by mouth daily GLYBURIDE 82881063469 No Longer Active Simon Castillo MD Active SYMBICORT 80-4.5 MCG/ACT AERO 2 puffs twice a day BUDESONIDE-FORMOTEROL FUMARATE 76424060949 No Longer Active Simon Castillo MD Active PREDNISONE 20 MG TAB 2 tabs daily for 4 days, 1 tab daily for 4 days, 1/2 tab daily for 4 days PREDNISONE 84796980905 No Longer Active Simon Castillo MD Active AMOXICILLIN 500 MG CAPS 2 po BID x 10 days AMOXICILLIN 07212147939 No Longer Active Simon Castillo MD Active METFORMIN HCL 1000 MG TABS 1 by mounth twice a day METFORMIN HCL 44233201540 No Longer Active Simon Castillo MD Active LUTEIN-ZEAXANTHIN 6-1 MG TABS Take 2 by mouth daily LUTEIN-ZEAXANTHIN 12424758578 Active Simon Castillo MD Active IBUPROFEN 800 MG TABS Take 1 tab every 6 hrs prn IBUPROFEN 24229755676 No Longer Active Simon Castillo MD Active GLYBURIDE 2.5 MG TABS Take one by mouth daily GLYBURIDE 43216621098 No Longer Active Simon Castillo MD Active LANCETS MISC 2 qd LANCETS 79596959370 Active Pamela Conde Active ACACIA CONTOUR TEST STRP Use with testing twice daily GLUCOSE BLOOD 50314414992 Active Simon Castillo MD Active ACACIA ASPIRIN 325 MG TABS Take one by mouth daily ASPIRIN 86966626208 Active Pamela Conde Active GLYBURIDE 2.5 MG TABS Take one by mouth daily GLYBURIDE 2.5 MG TABS 381572 GLYBURIDE Inactive PREDNISONE 20 MG TAB 2 tabs daily for 4 days, 1 tab daily for 4 days, 1/2 tab daily for 4 days PREDNISONE 20 MG TAB 405062 PREDNISONE Inactive SYMBICORT 80-4.5 MCG/ACT AERO 2 puffs twice a day SYMBICORT 80-4.5 MCG/ACT AERO BUDESONIDE-FORMOTEROL FUMARATE Inactive FLONASE 50 MCG/ACT SUSP 2 puffs in each nostril daily FLONASE 50 MCG/ACT SUSP 146381 FLUTICASONE PROPIONATE Inactive ATENOLOL 50 MG TABS Take one by mouth daily ATENOLOL 50 MG TABS 004082 ATENOLOL Inactive CETIRIZINE HCL 10 MG TABS 1 po qd as needed for allergies CETIRIZINE HCL 10 MG TABS 2927773 CETIRIZINE HCL Inactive LEVAQUIN 750 MG TABS 1 po qod x 5 doses LEVAQUIN 750 MG TABS 707340 LEVOFLOXACIN Inactive GLYBURIDE 5 MG TAB Take one by mouth daily GLYBURIDE 5 MG TAB 023284 GLYBURIDE Inactive PREDNISONE 5 MG TAB Take one po qod PREDNISONE 5 MG TAB 868995 PREDNISONE Inactive PREDNISONE 20 MG TAB 2 tabs daily for 5 days, then 1 daily for 5 days PREDNISONE 20 MG TAB 039015 PREDNISONE Inactive FLONASE 50 MCG/ACT SUSP 2 puffs in each nostril daily FLONASE 50 MCG/ACT SUSP 442906 FLUTICASONE PROPIONATE Inactive SYMBICORT 160-4.5 MCG/ACT AERO 2 puff BID SYMBICORT 160-4.5 MCG/ACT AERO BUDESONIDE-FORMOTEROL FUMARATE Inactive PREDNISONE 5 MG TABS 1 po qod PREDNISONE 5 MG TABS 263510 PREDNISONE Inactive PREDNISONE 20 MG TAB 1 tablet daily for airway inflammation 02/25 PREDNISONE 20 MG TAB 842635 PREDNISONE Inactive SULFASALAZINE 500 MG ORAL TBEC 2 tabs BID SULFASALAZINE 500 MG ORAL TBEC 057119 SULFASALAZINE Inactive AMOXICILLIN 500 MG CAPS 2 po BID x 10 days AMOXICILLIN 500 MG CAPS 675955 AMOXICILLIN Inactive GLYBURIDE 5 MG TAB Take one by mouth daily GLYBURIDE 5 MG TAB 801267 GLYBURIDE Inactive AZITHROMYCIN 250 MG TABS 2 po qd x 1 day, then 1 po qd x 4 days AZITHROMYCIN 250 MG TABS 1601681 AZITHROMYCIN Inactive PREDNISONE 20 MG TAB 2 tabs daily for 3 days, 1 tab daily for 3 days, 1/2 tab daily for 2 days PREDNISONE 20 MG TAB 685967 PREDNISONE Inactive PREDNISONE 20 MG TAB 2 tabs daily for 5 days, then 1 daily for 5 days, then 0.5 for 4 days PREDNISONE 20 MG TAB 996625 PREDNISONE Inactive AZITHROMYCIN 250 MG TABS 2 po qd x 1 day, then 1 po qd x 4 days AZITHROMYCIN 250 MG TABS 2269207 AZITHROMYCIN Inactive Immunizations Vaccine Administration Date Value [...] Panel - Chemistry sodium, serum 132 mmol/L 622-291 5143/10/26 carbon dioxide, venous blood 22.8 mmol/L 21.0-32.0 potassium, serum 5.4 mmol/L 3.5-5.2 chloride, serum 98 mmol/L 98-107 blood glucose 424 mg/dL 65-110 urea nitrogen, blood 40 mg/dL 7-18 creatinine, serum 2.26 mg/dL 0.55-1.30 alanine aminotransferase (SGPT), serum 29 U/L 12-78 aspartate aminotransferase (SGOT), serum 24 U/L 15-37 calcium, serum 8.6 mg/dL 8.5-10.1 bilirubin, serum, total 0.60 mg/dL 0.00-1.00 sodium, serum 137 mmol/L 918-693 9721/06/06 carbon dioxide, venous blood 24.9 mmol/L 21.0-32.0 [...] % 11.6-14.8 platelet count 210 10^3/MM^3 10*3/mm3 178-536 2128/10/26 leukocyte count, blood 10.3 10^3/MM^3 10*3/mm3 4.6-10.2 [...] Panel - Chemistry sodium, serum 139 mmol/L 997-141 0155/03/17 carbon dioxide, venous blood 29.0 mmol/L 21.0-32.0 [...] Rate - Chemistry sodium, serum 136 mmol/L 501-823 0418/09/18 carbon dioxide, venous blood 24.3 mmol/L 21.0-32.0 [...] HGBA1C - Chemistry sodium, serum 139 mmol/L 557-531 5795/07/09 potassium, serum 5.4 mmol/L 3.5-5.2 chloride, serum [...] 8.5 % 4.3-6.0 sodium, serum 137 mmol/L 229-844 7434/02/12 potassium, serum 5.1 mmol/L 3.5-5.2 chloride, serum 103 mmol/L 98-107 carbon dioxide, venous blood 24.4 mmol/L 21.0-32.0 blood glucose 261 mg/dL 65-110 calcium, serum 9.0 mg/dL 8.5-10.1 urea nitrogen, blood 44 mg/dL 7-18 creatinine, serum 2.37 mg/dL 0.55-1.30 Lab Report: Lipid Panel - Chemistry cholesterol, serum 139 mg/dL 934-525 8981/09/10 triglyceride, serum, fasting 176 mg/dL 30-200 HDL cholesterol, serum 45 mg/dL 32-96 LDL cholesterol, serum 59 mg/dL 0-130 Lab Report: MICROALBUMIN - Chemistry albumin/creatinine ratio, urine 30 - 300 mg/g mg/g{creat} 0-29 Lab Report: MICROALBUMIN - Lab microalbumin, urine 30 0-19 Lab Report: Uric Acid - Chemistry uric acid, serum 6.3 mg/dL 2.6-7.2 Encounters Code Encounter Date Provider Facility CPT-73641 Level 4 Est. Patient 14:32:04 CDT Neto Oshea DO [facility] CPT-55550 Level 3 Est. Patient 08:41:43 CDT Giles Nashtico [facility] CPT-71582 Level 3 Est. Patient 08:40:53 CDT Giles Nashamayal [facility] CPT-33221 Level 3 Est. [facility] 08:36[facility] Level 3 Est. Patient 09:08:44 CDT Giles Nashtico [facility] CPT-15063 Level 4 Est. Patient 09:17:32 [employer] Simon Castillo MD [facility] CPT-29609 Level 3 Est. Patient 11:22:22 [employer] Simon Castillo MD [facility] CPT-72561 Level 3 Est. Patient 09:02:14 CDT Simon Castillo MD [facility] CPT-31806 Level 4 Est. Patient 08:47:25 CDT Simon Castillo MD [facility] CPT-40609 Level 4 Est. Patient 10:17:25 CDT Simon Castillo MD [facility] CPT-27765 Level 4 Est. Patient 10:10:09 [employer] Simon Castillo MD [facility] CPT-98395 Level 4 Est. Patient 11:48:19 CDT Simon Castillo MD [facility] CPT-58861 Level 4 Est. Patient 08:59:29 CDT Simon Castillo MD [facility] CPT-52501 Level 4 Est. Patient 10:52:51 [employer] Simon Castillo MD [facility] CPT-71853 Level 4 Est. Patient 11:50:30 CDT Simon Castillo MD [facility] CPT-57275 Level 4 Est. Patient 09:54:46 CDT Simon Castillo MD [facility] CPT-29317 Level 3 Est. Patient 11:10:14 CDT Simon Castillo MD [facility] CPT-04271 Level 4 Est. Patient 09:44:02 CDT Simon Castillo MD [facility] CPT-13939 Level 3 Est. Patient 09:27:48 CDT Simon Castillo MD [facility] CPT-98203 Level 3 Est. Patient 09:58:06 [employer] Simon Castillo MD [facility] CPT-88823 Level 3 Est. Patient 09:51:35 CDT Simon Castillo MD [facility] Procedures Code Procedure Name Date Entry Date Standard Description CPT-32350 Chest 2V Frontal and Lat - XRAY USE ONLY 09:00:14 CDT CPT-47740 Venipuncture Draw Fee 13:33:02 CDT CPT-63289 Bone Density 09:37:49 [employer] CPT-04549 Fluzone High Dose 17:20:42 CDT CPT-63349 Prevnar 13 17:20:42 CDT CPT-18225 Administration 2+ single or combination vaccines inc oral 17:20:42 CDT CPT-64101 Administration single or combination vaccine inc oral 17 :20:42 CDT CPT-40419 Hand comp min 3V 09:24:38 CDT CPT-85933 Venipuncture Draw Fee 08:07:29 [employer] CPT-26714 Venipuncture Draw Fee 09:02:51 [employer]ING SUPER[employer]OR CPT-74551 Venipuncture Draw Fee 12:45:08 [employer]ING [employer]PER[employer]OR CPT-66231 Venipuncture Draw Fee 09:25:31 CDT CPT-G0008 Administration of Influenza Virus Vaccine 14:41:29 CDT CPT-60217 Fluzone High-Dose Intramuscular Suspension 14:41:29 CDT CPT-Cryo Cryotherapy 11:48:20 CDT CPT-50789 EKG Trac and Interp 09:21:58 CDT CPT-51576 Chest 2V Frontal and Lat 09:21:58 CDT CPT-Cryo Cryotherapy 10:54:51 [employer] CPT-00261 Administration 2+ single or combination vaccines inc oral 10:42:19 CDT CPT-86240 Administration single or combination vaccine inc oral 10 :42:19 CDT CPT-16708 Pneumovax 10:42:19 CDT CPT-39342 Influenza High Dose age 65+ 10:42:19 CDT CPT-36495 Administration single or combination vaccine inc oral 13 :18:54 CDT CPT-25094 Influenza High Dose age 65+ 13:18:54 CDT CPT-61083 Venipuncture Draw Fee 11:53:16 CDT CPT-25698 LS spine comp w obliq 11:03:13 CDT CPT-Cryo Cryotherapy 08:27:16 [employer]ING [employer]PER[employer] CPT-38958 Administration single or combination vaccine inc oral 10 :56:34 CDT CPT-47099 Influenza High Dose age 65+ 10:56:34 CDT
--- OUTSIDE RECORDS SUMMARY | 2018-03-31 18:48 | XMS REPORT | Clinical Summary ---
Author Author Admin, E Organization [facility] Address Unknown Phone Unavailable Allergies, Adverse Reactions, Alerts Allergy Name Reaction Description Start Date Severity Status Provider No Known Allergies [facility] Conditions or Problems Problem Name Problem Code [...] Simon Castillo MD Rheumatoid arthritis Steroid use, predatory animal exterminator V58.65 Resolved Simon Castillo MD Long-term [...] Rheumatoid arthritis Pharyngitis 462 Active Jillina Frazell INTERACTIVE PROJECT MANAGER Acute pharyngitis Dyspnea 786.09 Active Jillina Frazell INTERACTIVE PROJECT MANAGER Other dyspnea and respiratory abnormality Peripheral edema 782.3 Active Jillina Frazell INTERACTIVE PROJECT MANAGER Edema 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 Simon [...] ICD-729.5 Inactive Simon Castillo MD Steroid use, senior care ICD-V58.65 Inactive Simon Castillo MD Hand pain, bilateral ICD-729.5 Inactive Simon Castillo MD ABDOMINAL PAIN RIGHT LOWER QUADRANT ICD-789.03 Inactive Simon Castillo MD Medication List Medication Instructions Start Date Stop Date Generic Name NDC Status Provider Patient Instruction TRIAMCINOLONE ACETONIDE 0.1 % OINT Apply to affected areas TID for up to 2 weeks TRIAMCINOLONE ACETONIDE 20554521446 Active Simon Castillo MD Active LASIX 20 MG TAB 1 tablet by mouth daily x 2 days FUROSEMIDE 50338940773 No Longer Active Simon Castillo MD Active SULFASALAZINE 500 MG ORAL TBEC 2 tabs BID SULFASALAZINE 63143819319 No Longer Active Neto Oshea DO Active PREDNISONE 20 MG TAB 2 tabs daily for 3 days, 1 tab daily for 3 days, 1/2 tab daily for 2 days PREDNISONE 75778789232 No Longer Active Jilltriston aTtum APRN Active PREDNISONE 20 MG TAB 1 tablet daily for airway inflammation 02/25 PREDNISONE 56073868561 No Longer Active Jillina Frazell INTERACTIVE PROJECT MANAGER Active CLARITIN 10 MG TAB 1 tablet by mouth daily as needed for allergies LORATADINE 31603768391 Active Giles Tatum INTERACTIVE PROJECT MANAGER Active AZITHROMYCIN 250 MG TABS 2 po qd x 1 day, then 1 po qd x 4 days AZITHROMYCIN 40715914460 No Longer Active Jillina Frazell INTERACTIVE PROJECT MANAGER Active GLIMEPIRIDE 2 MG ORAL TABS 1 po q a.m. GLIMEPIRIDE 71793007045 Active Simon Castillo MD Active HYDROCODONE-ACETAMINOPHEN 5-325 MG TABS 1 tab by mouth 8 hours as needed for pain HYDROCODONE-ACETAMINOPHEN 52731508267 Active Simon Castillo MD Active TRAMADOL HCL 50 MG TABS 1 po q6hr PRN Pain TRAMADOL HCL 60161596341 No Longer Active Simon Castillo MD Active PREDNISONE 5 MG TAB 1-2 tabs daily for rheumatoid arthritis PREDNISONE 68207896411 Active Simon Castillo MD Active PREDNISONE 5 MG TABS 1 po qod PREDNISONE 00601226644 No Longer Active Simon Castillo MD Active SYMBICORT 160-4.5 MCG/ACT AERO 2 puff BID BUDESONIDE- FORMOTEROL FUMARATE 89556448014 No Longer Active Simon Castillo MD Active FLONASE 50 MCG/ACT SUSP 2 puffs in each nostril daily FLUTICASONE PROPIONATE 81775447010 No Longer Active Simon Castillo MD Active PREDNISONE 20 MG TAB 2 tabs daily for 5 days, then 1 daily for 5 days PREDNISONE 08024059409 No Longer Active Simon Castillo MD Active PREDNISONE 20 MG TAB 2 tabs daily for 5 days, then 1 daily for 5 days, then 0.5 for 4 days PREDNISONE 93582766968 No Longer Active Simon Castillo MD Active CLOTRIMAZOLE 1 % EXT CREA Apply to affected area of feet twice daily PRN Rash CLOTRIMAZOLE 81478087830 Active Simon Castillo MD Active PREDNISONE 20 MG TAB 2 tabs daily for 3 days, 1 tab daily for 3 days, 1/2 tab daily for 2 days PREDNISONE 25181332507 No Longer Active Simon Castillo MD Active AZITHROMYCIN 250 MG TABS 2 po qd x 1 day, then 1 po qd x 4 days AZITHROMYCIN 12859063436 No Longer Active Simon Castillo MD Active LISINOPRIL 10 MG TABS 1 tablet by mouth daily LISINOPRIL 18258175158 Active Simon Castillo MD Active CARVEDILOL 6.25 MG TABS 1 po BID CARVEDILOL 71310791483 Active Simon Castillo MD Active LISINOPRIL-HYDROCHLOROTHIAZIDE 20-12.5 MG TABS 1/2 tab by mouth daily LISINOPRIL-HYDROCHLOROTHIAZIDE 50239125826 No Longer Active Simon Castillo MD Active TRAMADOL HCL 50 MG TABS 1-2 tablets every 6 hours as needed for pain TRAMADOL HCL 69774362319 Active Giles Tatum APRN Active PREDNISONE 5 MG TAB Take one po qod PREDNISONE 52640253073 No Longer Active Simon Castillo MD Active GLYBURIDE 5 MG TAB Take one by mouth daily GLYBURIDE 45358717706 No Longer Active Simon Castillo MD Active LEVAQUIN 750 MG TABS 1 po qod x 5 doses LEVOFLOXACIN 71710192071 No Longer Active Simon Castillo MD Active CETIRIZINE HCL 10 MG TABS 1 po qd as needed for allergies CETIRIZINE HCL 13011709017 No Longer Active Simon Castillo MD Active FISH OIL 1000 MG CPDR 1 pill by mouth twice daily for cholesterol OMEGA -3 FATTY ACIDS 26822798535 Active Simon Castillo MD Active BILBERRY CAPS 1 tab daily BILBERRY (VACCINIUM MYRTILLUS) CAPS 04930997288 Active Simon Castillo MD Active ATENOLOL 50 MG TABS Take one by mouth daily ATENOLOL 81845976157 No Longer Active Simon Castillo MD Active FLONASE 50 MCG/ACT SUSP 2 puffs in each nostril daily FLUTICASONE PROPIONATE 60574297842 No Longer Active Simon Castillo MD Active GLYBURIDE 5 MG TAB Take one by mouth daily GLYBURIDE 09426185224 No Longer Active Simon Castillo MD Active SYMBICORT 80-4.5 MCG/ACT AERO 2 puffs twice a day BUDESONIDE-FORMOTEROL FUMARATE 97203201905 No Longer Active Simon Castillo MD Active PREDNISONE 20 MG TAB 2 tabs daily for 4 days, 1 tab daily for 4 days, 1/2 tab daily for 4 days PREDNISONE 45397105557 No Longer Active Simon Castillo MD Active AMOXICILLIN 500 MG CAPS 2 po BID x 10 days AMOXICILLIN 05037676436 No Longer Active Simon Castillo MD Active METFORMIN HCL 1000 MG TABS 1 by mounth twice a day METFORMIN HCL 25428783032 No Longer Active Simon Castillo MD Active LUTEIN-ZEAXANTHIN 6-1 MG TABS Take 2 by mouth daily LUTEIN-ZEAXANTHIN 53427975280 Active Simon Castillo MD Active IBUPROFEN 800 MG TABS Take 1 tab every 6 hrs prn IBUPROFEN 86221993444 No Longer Active Simon Castillo MD Active GLYBURIDE 2.5 MG TABS Take one by mouth daily GLYBURIDE 50270624763 No Longer Active Simon Castillo MD Active LANCETS MISC 2 qd LANCETS 57655752477 Active Pamela Conde Active ACACIA CONTOUR TEST STRP Use with testing twice daily GLUCOSE BLOOD 72166193725 Active Simon Castillo MD Active ACACIA ASPIRIN 325 MG TABS Take one by mouth daily ASPIRIN 85092440994 Active Pamela Conde Active GLYBURIDE 2.5 MG TABS Take one by mouth daily GLYBURIDE 2.5 MG TABS 123175 GLYBURIDE Inactive PREDNISONE 20 MG TAB 2 tabs daily for 4 days, 1 tab daily for 4 days, 1/2 tab daily for 4 days PREDNISONE 20 MG TAB 809098 PREDNISONE Inactive SYMBICORT 80-4.5 MCG/ACT AERO 2 puffs twice a day SYMBICORT 80-4.5 MCG/ACT AERO BUDESONIDE-FORMOTEROL FUMARATE Inactive FLONASE 50 MCG/ACT SUSP 2 puffs in each nostril daily FLONASE 50 MCG/ACT SUSP 376939 FLUTICASONE PROPIONATE Inactive ATENOLOL 50 MG TABS Take one by mouth daily ATENOLOL 50 MG TABS 860715 ATENOLOL Inactive CETIRIZINE HCL 10 MG TABS 1 po qd as needed for allergies CETIRIZINE HCL 10 MG TABS 9425150 CETIRIZINE HCL Inactive LEVAQUIN 750 MG TABS 1 po qod x 5 doses LEVAQUIN 750 MG TABS 822209 LEVOFLOXACIN Inactive GLYBURIDE 5 MG TAB Take one by mouth daily GLYBURIDE 5 MG TAB 430715 GLYBURIDE Inactive PREDNISONE 5 MG TAB Take one po qod PREDNISONE 5 MG TAB 624711 PREDNISONE Inactive PREDNISONE 20 MG TAB 2 tabs daily for 5 days, then 1 daily for 5 days PREDNISONE 20 MG TAB 213553 PREDNISONE Inactive FLONASE 50 MCG/ACT SUSP 2 puffs in each nostril daily FLONASE 50 MCG/ACT SUSP 751909 FLUTICASONE PROPIONATE Inactive SYMBICORT 160-4.5 MCG/ACT AERO 2 puff BID SYMBICORT 160-4.5 MCG/ACT AERO BUDESONIDE-FORMOTEROL FUMARATE Inactive PREDNISONE 5 MG TABS 1 po qod PREDNISONE 5 MG TABS 540009 PREDNISONE Inactive PREDNISONE 20 MG TAB 1 tablet daily for airway inflammation 02/25 PREDNISONE 20 MG TAB 491700 PREDNISONE Inactive SULFASALAZINE 500 MG ORAL TBEC 2 tabs BID SULFASALAZINE 500 MG ORAL TBEC 416877 SULFASALAZINE Inactive LASIX 20 MG TAB 1 tablet by mouth daily x 2 days LASIX 20 MG TAB 011645 FUROSEMIDE Inactive AMOXICILLIN 500 MG CAPS 2 po BID x 10 days AMOXICILLIN 500 MG CAPS 924797 AMOXICILLIN Inactive GLYBURIDE 5 MG TAB Take one by mouth daily GLYBURIDE 5 MG TAB 465721 GLYBURIDE Inactive AZITHROMYCIN 250 MG TABS 2 po qd x 1 day, then 1 po qd x 4 days AZITHROMYCIN 250 MG TABS 9013940 AZITHROMYCIN Inactive PREDNISONE 20 MG TAB 2 tabs daily for 3 days, 1 tab daily for 3 days, 1/2 tab daily for 2 days PREDNISONE 20 MG TAB 728917 PREDNISONE Inactive PREDNISONE 20 MG TAB 2 tabs daily for 5 days, then 1 daily for 5 days, then 0.5 for 4 days PREDNISONE 20 MG TAB 070864 PREDNISONE Inactive AZITHROMYCIN 250 MG TABS 2 po qd x 1 day, then 1 po qd x 4 days AZITHROMYCIN 250 MG TABS 6440956 AZITHROMYCIN Inactive PREDNISONE 20 MG TAB 2 tabs daily for 3 days, 1 tab daily for 3 days, 1/2 tab daily for 2 days PREDNISONE 20 MG TAB 908142 PREDNISONE Inactive Immunizations Vaccine Administration Date Value [...] Panel - Chemistry sodium, serum 132 mmol/L 351-800 5408/10/26 carbon dioxide, venous blood 22.8 mmol/L 21.0-32.0 potassium, serum 5.4 mmol/L 3.5-5.2 chloride, serum 98 mmol/L 98-107 blood glucose 424 mg/dL 65-110 urea nitrogen, blood 40 mg/dL 7-18 creatinine, serum 2.26 mg/dL 0.55-1.30 alanine aminotransferase (SGPT), serum 29 U/L 12-78 aspartate aminotransferase (SGOT), serum 24 U/L 15-37 calcium, serum 8.6 mg/dL 8.5-10.1 bilirubin, serum, total 0.60 mg/dL 0.00-1.00 sodium, serum 137 mmol/L 154-102 7924/06/06 carbon dioxide, venous blood 24.9 mmol/L 21.0-32.0 [...] % 11.6-14.8 platelet count 210 10^3/MM^3 10*3/mm3 708-261 3293/10/26 monocytes as percent of blood leukocytes 5.6 % 1.7-9.3 hematocrit, blood 37.7 % 41.0-53.0 mean corpuscular volume, RBC 92 fL 80-97 mean corpuscular hemoglobin, RBC 30.2 pg 27.0-31.2 mean corpuscular hemoglobin concentration, RBC 33.0 G/DL % 31.8- 35.4 red blood cell distribution width 14.4 % 11.6-14.8 platelet count 274 10^3/MM^3 10*3/mm3 619-114 3059/10/26 lymphocytes as percent of blood leukocytes 11.8 % 20.5-51.1 erythrocyte (RBC) count 4.11 10^6/MM^3 10*6/mm3 4.69-6.13 hemoglobin, blood 12.4 g/dL 13.5-17.5 leukocyte count, blood 10.3 10^3/MM^3 10*3/mm3 4.6-10.2 neutrophils as percent of blood leukocytes 80.0 % 42.2-75.2 Lab Report: CBC, Comp. Metabolic Panel - Chemistry sodium, serum 139 mmol/L 399-031 6824/03/17 carbon dioxide, venous blood 29.0 mmol/L 21.0-32.0 [...] % 11.6-14.8 platelet count 283 10^3/MM^3 10*3/mm3 307-347 4494/03/17 leukocyte count, blood 10.9 10^3/MM^3 10*3/mm3 4.6-10.2 erythrocyte (RBC) count 4.56 10^6/MM^3 10*6/mm3 4.69-6.13 hemoglobin, blood 13.6 g/dL 13.5-17.5 hematocrit, blood 42.0 % 41.0-53.0 mean corpuscular volume, RBC 92 fL 80-97 Lab Report: Comp. Metabolic Panel, Erythrocyte Sed Rate - Chemistry aspartate aminotransferase (SGOT), serum 18 U/L 15-37 calcium, serum 8.4 mg/dL 8.5-10.1 sodium, serum 136 mmol/L 650-715 1211/09/18 carbon dioxide, venous blood 24.3 mmol/L 21.0-32.0 potassium, serum 5.1 mmol/L 3.5-5.2 chloride, serum 104 mmol/L 98-107 blood glucose 331 mg/dL 65-110 urea nitrogen, blood 43 mg/dL 7-18 creatinine, serum 2.57 mg/dL 0.55-1.30 alanine aminotransferase (SGPT), serum 27 U/L 12-78 Lab Report: Comp. Metabolic Panel, HGBA1C - Chemistry blood glucose 199 mg/dL 65-110 carbon dioxide, venous blood 25.6 mmol/L 21.0-32.0 chloride, serum 105 mmol/L 98-107 potassium, serum 5.4 mmol/L 3.5-5.2 sodium, serum 139 mmol/L 925-398 8511/07/09 urea nitrogen, blood 47 mg/dL 7-18 calcium, serum 8.2 mg/dL 8.5-10.1 aspartate aminotransferase (SGOT), serum 12 U/L 15-37 alanine aminotransferase (SGPT), serum 22 U/L 12-78 creatinine, serum 2.40 mg/dL 0.60-1.30 bilirubin, serum, total 0.80 mg/dL 0.00-1.00 hemoglobin A1C, blood, as % of total hemoglobin 6.9 % 4.3-6.0 Lab Report: HGBA1C - Chemistry hemoglobin A1C, blood, as % of total hemoglobin 7.7 % 4.3-6.0 Lab Report: HGBA1C, Basic Metabolic Panel - Chemistry hemoglobin A1C, blood, as % of total hemoglobin 8.5 % 4.3-6.0 sodium, serum 137 mmol/L 062-708 8882/02/12 potassium, serum 5.1 mmol/L 3.5-5.2 chloride, serum 103 mmol/L 98-107 carbon dioxide, venous blood 24.4 mmol/L 21.0-32.0 blood glucose 261 mg/dL 65-110 calcium, serum 9.0 mg/dL 8.5-10.1 urea nitrogen, blood 44 mg/dL 7-18 creatinine, serum 2.37 mg/dL 0.55-1.30 Lab Report: Lipid Panel - Chemistry cholesterol, serum 139 mg/dL 024-280 0808/09/10 triglyceride, serum, fasting 176 mg/dL 30-200 HDL cholesterol, serum 45 mg/dL 32-96 LDL cholesterol, serum 59 mg/dL 0-130 Lab Report: MICROALBUMIN - Chemistry albumin/creatinine ratio, urine 30 - 300 mg/g mg/g{creat} 0-29 Lab Report: MICROALBUMIN - Lab microalbumin, urine 30 0-19 Lab Report: Uric Acid - Chemistry uric acid, serum 6.3 mg/dL 2.6-7.2 Encounters Code Encounter Date Provider Facility CPT-76956 Level 3 Est. Patient 09:18:25 CDT Simon Castillo MD [facility] CPT-85041 Level 4 Est. Patient 11:51:23 CDT Simon Castillo MD [facility] CPT-16589 Level 4 Est. Patient 14:32:04 CDT Neto Oshea DO [facility] CPT-32759 Level 3 Est. Patient 08:41:43 CDT Jiviraina Lolyl [facility] CPT-95372 Level 3 Est. Patient 08:40:53 CDT Jillina Frazell [facility] CPT-98396 Level 3 Est. Patient 08:36:52 CDT Jillina Frazell [facility] CPT-93294 Level 3 Est. Patient 09:08:44 CDT Jillina Frazell [facility] CPT-37890 Level 4 Est. 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 Patient 11:22:22 METAL MACHINE OPERATOR Simon Castillo MD [facility] CPT-22085 Level 3 Est. Patient 09:02:14 CDT Simon Castillo MD [facility] CPT-51170 Level 4 Est. Patient 08:47:25 CDT Simon Castillo MD [facility] CPT-87230 Level 4 Est. Patient 10:17:25 CDT Simon Castillo MD [facility] CPT-69480 Level 4 Est. Patient 10:10:09 METAL MACHINE OPERATOR Simon Castillo MD [facility] CPT-44389 Level 4 Est. Patient 11:48:19 CDT Simon Castillo MD [facility] CPT-70228 Level 4 Est. Patient 08:59:29 CDT Simon Castillo MD [facility] CPT-41931 Level 4 Est. Patient 10:52:51 METAL MACHINE OPERATOR Simon Castillo MD [facility] CPT-59839 Level 4 Est. Patient 11:50:30 CDT Simon Castillo MD [facility] CPT-57310 Level 4 Est. Patient 09:54:46 CDT Simon Castillo MD [facility] CPT-09132 Level 3 Est. Patient 11:10:14 CDT Simon Castillo MD [facility] CPT-18335 Level 4 Est. Patient 09:44:02 CDT Simon Castillo MD [facility] CPT-59649 Level 3 Est. Patient 09:27:48 CDT Simon Castillo MD [facility] CPT-64806 Level 3 Est. Patient 09:58:06 METAL MACHINE OPERATOR Simon Castillo MD [facility] CPT-55642 Level 3 Est. Patient 09:51:35 CDT Simon Castillo MD [facility] Procedures Code Procedure Name Date Entry Date Standard Description CPT-G0438 Initial Annual Wellness Exam 08:57:30 CDT CPT-18453 Chest 2V Frontal and Lat - XRAY USE ONLY 09:00:14 CDT CPT-25032 Venipuncture Draw Fee 13:33:02 CDT CPT-67437 Bone Density 09:37:49 METAL MACHINE OPERATOR CPT-59107 Fluzone High Dose 17:20:42 CDT CPT-14117 Prevnar 13 17:20:42 CDT CPT-98667 Administration 2+ single or combination vaccines inc oral 17:20:42 CDT CPT-23848 Administration single or combination vaccine inc oral 17 :20:42 CDT CPT-20341 Hand comp min 3V 09:24:38 CDT CPT-91032 Venipuncture Draw Fee 08:07:29 METAL MACHINE OPERATOR CPT-81785 Venipuncture Draw Fee 09:02:51 METAL MACHINE OPERATOR CPT-96751 Venipuncture Draw Fee 12:45:08 METAL MACHINE OPERATOR CPT-49713 Venipuncture Draw Fee 09:25:31 CDT CPT-G0008 Administration of Influenza Virus Vaccine 14:41:29 CDT CPT-47222 Fluzone High-Dose Intramuscular Suspension 14:41:29 CDT CPT-Cryo Cryotherapy 11:48:20 CDT CPT-75332 EKG Trac and Interp 09:21:58 CDT CPT-74186 Chest 2V Frontal and Lat 09:21:58 CDT CPT-Cryo Cryotherapy 10:54:51 METAL MACHINE OPERATOR CPT-11099 Administration 2+ single or combination vaccines inc oral 10:42:19 CDT CPT-79586 Administration single or combination vaccine inc oral 10 :42:19 CDT CPT-45304 Pneumovax 10:42:19 CDT CPT-30854 Influenza High Dose age 65+ 10:42:19 CDT CPT-53949 Administration single or combination vaccine inc oral 13 :18:54 CDT CPT-24089 Influenza High Dose age 65+ 13:18:54 CDT CPT-19935 Venipuncture Draw Fee 11:53:16 CDT CPT-14799 LS spine comp w obliq 11:03:13 CDT CPT-Cryo Cryotherapy 08:27:16 METAL MACHINE OPERATOR CPT-07892 Administration single or combination vaccine inc oral 10 :56:34 CDT CPT-68247 Influenza High Dose age 65+ 10:56:34 CDT
--- OUTSIDE RECORDS SUMMARY | 2018-03-31 18:49 | XMS REPORT | Clinical Summary ---
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 Simon Castillo [...] ICD-729.5 Inactive Simon Castillo MD 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, 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 ICD-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.65 Inactive Simon Castillo MD Hand pain, bilateral ICD-729.5 Kerry Castillo MD Medication List Medication Instructions Start Date Stop Date Generic Name NDC Status Provider Patient Instruction TRIAMCINOLONE ACETONIDE 0.1 % OINT Apply to affected areas TID for up to 2 weeks TRIAMCINOLONE ACETONIDE 98914063780 No Longer Active Simon Castillo MD Active LASIX 20 MG TAB 1 tablet by mouth daily x 2 days FUROSEMIDE 29532504639 No Longer Active Simon Castillo MD Active SULFASALAZINE 500 MG ORAL TBEC 2 tabs BID SULFASALAZINE 21683031167 No Longer Active Neto Oshea DO Active PREDNISONE 20 MG TAB 2 tabs daily for 3 days, 1 tab daily for 3 days, 1/2 tab daily for 2 days PREDNISONE 74577436226 No Longer Active Jillina Frazelalejandrina HEMPHILL Active PREDNISONE 20 MG TAB 1 tablet daily for airway inflammation 02/25 PREDNISONE 79055716400 No Longer Active Jillina Frazell [employer] Active CLARITIN 10 MG TAB 1 tablet by mouth daily as needed for allergies LORATADINE 23559779762 Active Jillina Lolyl [employer] Active AZITHROMYCIN 250 MG TABS 2 po qd x 1 day, then 1 po qd x 4 days AZITHROMYCIN 95917935739 No Longer Active Jillina Frazell [employer]IC[employer] Active GLIMEPIRIDE 2 MG ORAL TABS 1 po q a.m. GLIMEPIRIDE 39649628623 Active Simon Castillo MD Active HYDROCODONE-ACETAMINOPHEN 5-325 MG TABS 1 tab by mouth 8 hours as needed for pain HYDROCODONE-ACETAMINOPHEN 06513345292 Active Simon Castillo MD Active TRAMADOL HCL 50 MG TABS 1 po q6hr PRN Pain TRAMADOL HCL 97584089701 No Longer Active Simon Castillo MD Active PREDNISONE 5 MG TAB 1-2 tabs daily for rheumatoid arthritis PREDNISONE 85256413275 Active Simon Castillo MD Active PREDNISONE 5 MG TABS 1 po qod PREDNISONE 78946309926 No Longer Active Simon Castillo MD Active SYMBICORT 160-4.5 MCG/ACT AERO 2 puff BID BUDESONIDE- FORMOTEROL FUMARATE 49490604426 No Longer Active Simon Castillo MD Active FLONASE 50 MCG/ACT SUSP 2 puffs in each nostril daily FLUTICASONE PROPIONATE 24644232488 No Longer Active Simon Castillo MD Active PREDNISONE 20 MG TAB 2 tabs daily for 5 days, then 1 daily for 5 days PREDNISONE 66736943462 No Longer Active Simon Castillo MD Active PREDNISONE 20 MG TAB 2 tabs daily for 5 days, then 1 daily for 5 days, then 0.5 for 4 days PREDNISONE 31455323604 No Longer Active Simon Castillo MD Active CLOTRIMAZOLE 1 % EXT CREA Apply to affected area of feet twice daily PRN Rash CLOTRIMAZOLE 23492857763 Active Simon Castillo MD Active PREDNISONE 20 MG TAB 2 tabs daily for 3 days, 1 tab daily for 3 days, 1/2 tab daily for 2 days PREDNISONE 25950175155 No Longer Active Simon Castillo MD Active AZITHROMYCIN 250 MG TABS 2 po qd x 1 day, then 1 po qd x 4 days AZITHROMYCIN 72106640590 No Longer Active Simon Castillo MD Active LISINOPRIL 10 MG TABS 1 tablet by mouth daily LISINOPRIL 78976223517 Active Simon Castillo MD Active CARVEDILOL 6.25 MG TABS 1 po BID CARVEDILOL 58357935914 Active Simon Castillo MD Active LISINOPRIL-HYDROCHLOROTHIAZIDE 20-12.5 MG TABS 1/2 tab by mouth daily LISINOPRIL-HYDROCHLOROTHIAZIDE 60621721924 No Longer Active Simon Castillo MD Active TRAMADOL HCL 50 MG TABS 1-2 tablets every 6 hours as needed for pain TRAMADOL HCL 93365561471 Active Giles Tatum APRN Active PREDNISONE 5 MG TAB Take one po qod PREDNISONE 81142204068 No Longer Active Simon Castillo MD Active GLYBURIDE 5 MG TAB Take one by mouth daily GLYBURIDE 84640157091 No Longer Active Simon Castillo MD Active LEVAQUIN 750 MG TABS 1 po qod x 5 doses LEVOFLOXACIN 25928592618 No Longer Active Simon Castillo MD Active CETIRIZINE HCL 10 MG TABS 1 po qd as needed for allergies CETIRIZINE HCL 96839289306 No Longer Active Simon Castillo MD Active FISH OIL 1000 MG CPDR 1 pill by mouth twice daily for cholesterol OMEGA -3 FATTY ACIDS 67924827648 Active Simon Castillo MD Active BILBERRY CAPS 1 tab daily BILBERRY (VACCINIUM MYRTILLUS) CAPS 80163341719 Active Simon Castillo MD Active ATENOLOL 50 MG TABS Take one by mouth daily ATENOLOL 16197361928 No Longer Active Simon Castillo MD Active FLONASE 50 MCG/ACT SUSP 2 puffs in each nostril daily FLUTICASONE PROPIONATE 52119783422 No Longer Active Simon Castillo MD Active GLYBURIDE 5 MG TAB Take one by mouth daily GLYBURIDE 20454320123 No Longer Active Simon Castillo MD Active SYMBICORT 80-4.5 MCG/ACT AERO 2 puffs twice a day BUDESONIDE-FORMOTEROL FUMARATE 14879638111 No Longer Active Simon Castillo MD Active PREDNISONE 20 MG TAB 2 tabs daily for 4 days, 1 tab daily for 4 days, 1/2 tab daily for 4 days PREDNISONE 40250846079 No Longer Active Simon Castillo MD Active AMOXICILLIN 500 MG CAPS 2 po BID x 10 days AMOXICILLIN 31123208837 No Longer Active Simon Castillo MD Active METFORMIN HCL 1000 MG TABS 1 by mounth twice a day METFORMIN HCL 92701729455 No Longer Active Simon Castillo MD Active LUTEIN-ZEAXANTHIN 6-1 MG TABS Take 2 by mouth daily LUTEIN-ZEAXANTHIN 00623558111 Active Simon Castillo MD Active IBUPROFEN 800 MG TABS Take 1 tab every 6 hrs prn IBUPROFEN 85919655721 No Longer Active Simon Castillo MD Active GLYBURIDE 2.5 MG TABS Take one by mouth daily GLYBURIDE 01323534623 No Longer Active Simon Castillo MD Active LANCETS MISC 2 qd LANCETS 72353636070 Active Pamela Conde Active ACACIA CONTOUR TEST STRP Use with testing twice daily GLUCOSE BLOOD 46752788524 Active Simon Castillo MD Active ACACIA ASPIRIN 325 MG TABS Take one by mouth daily ASPIRIN 02527807481 Active Pamela Conde Active GLYBURIDE 2.5 MG TABS Take one by mouth daily GLYBURIDE 2.5 MG TABS 183086 GLYBURIDE Inactive PREDNISONE 20 MG TAB 2 tabs daily for 4 days, 1 tab daily for 4 days, 1/2 tab daily for 4 days PREDNISONE 20 MG TAB 557420 PREDNISONE Inactive SYMBICORT 80-4.5 MCG/ACT AERO 2 puffs twice a day SYMBICORT 80-4.5 MCG/ACT AERO BUDESONIDE-FORMOTEROL FUMARATE Inactive FLONASE 50 MCG/ACT SUSP 2 puffs in each nostril daily FLONASE 50 MCG/ACT SUSP FLUTICASONE PROPIONATE Inactive ATENOLOL 50 MG TABS Take one by mouth daily ATENOLOL 50 MG TABS 229264 ATENOLOL Inactive CETIRIZINE HCL 10 MG TABS 1 po qd as needed for allergies CETIRIZINE HCL 10 MG TABS 0442410 CETIRIZINE HCL Inactive LEVAQUIN 750 MG TABS 1 po qod x 5 doses LEVAQUIN 750 MG TABS 899126 LEVOFLOXACIN Inactive GLYBURIDE 5 MG TAB Take one by mouth daily GLYBURIDE 5 MG TAB 155175 GLYBURIDE Inactive PREDNISONE 5 MG TAB Take one po qod PREDNISONE 5 MG TAB 646062 PREDNISONE Inactive PREDNISONE 20 MG TAB 2 tabs daily for 5 days, then 1 daily for 5 days PREDNISONE 20 MG TAB 544541 PREDNISONE Inactive FLONASE 50 MCG/ACT SUSP 2 puffs in each nostril daily FLONASE 50 MCG/ACT SUSP FLUTICASONE PROPIONATE Inactive SYMBICORT 160-4.5 MCG/ACT AERO 2 puff BID SYMBICORT 160-4.5 MCG/ACT AERO BUDESONIDE-FORMOTEROL FUMARATE Inactive PREDNISONE 5 MG TABS 1 po qod PREDNISONE 5 MG TABS 595784 PREDNISONE Inactive PREDNISONE 20 MG TAB 1 tablet daily for airway inflammation 02/25 PREDNISONE 20 MG TAB 271548 PREDNISONE Inactive SULFASALAZINE 500 MG ORAL TBEC 2 tabs BID SULFASALAZINE 500 MG ORAL TBEC 516325 SULFASALAZINE Inactive LASIX 20 MG TAB 1 tablet by mouth daily x 2 days LASIX 20 MG TAB 807705 FUROSEMIDE Inactive AMOXICILLIN 500 MG CAPS 2 po BID x 10 days AMOXICILLIN 500 MG CAPS 859329 AMOXICILLIN Inactive GLYBURIDE 5 MG TAB Take one by mouth daily GLYBURIDE 5 MG TAB 225908 GLYBURIDE Inactive AZITHROMYCIN 250 MG TABS 2 po qd x 1 day, then 1 po qd x 4 days AZITHROMYCIN 250 MG TABS 1965464 AZITHROMYCIN Inactive PREDNISONE 20 MG TAB 2 tabs daily for 3 days, 1 tab daily for 3 days, 1/2 tab daily for 2 days PREDNISONE 20 MG TAB 921261 PREDNISONE Inactive PREDNISONE 20 MG TAB 2 tabs daily for 5 days, then 1 daily for 5 days, then 0.5 for 4 days PREDNISONE 20 MG TAB 137258 PREDNISONE Inactive AZITHROMYCIN 250 MG TABS 2 po qd x 1 day, then 1 po qd x 4 days AZITHROMYCIN 250 MG TABS 5711494 AZITHROMYCIN Inactive PREDNISONE 20 MG TAB 2 tabs daily for 3 days, 1 tab daily for 3 days, 1/2 tab daily for 2 days PREDNISONE 20 MG TAB 354342 PREDNISONE Inactive TRIAMCINOLONE ACETONIDE 0.1 % OINT Apply to affected areas TID for up to 2 weeks TRIAMCINOLONE ACETONIDE 0.1 % OINT 5448148 TRIAMCINOLONE ACETONIDE Inactive Immunizations Vaccine Administration Date [...] E&M - 3141-9 213.5 [lb_av] Weight Measured Diagnostic Results Date Name Value Unit Range Description Lab Report: CBC W/DIFF, Comp. Metabolic Panel - Chemistry sodium, serum 137 mmol/L 385-651 7023/06/06 carbon dioxide, venous blood 24.9 mmol/L 21.0-32.0 [...] Panel - Chemistry sodium, serum 139 mmol/L 442-919 4549/03/17 carbon dioxide, venous blood 29.0 mmol/L 21.0-32.0 [...] count 283 10^3/MM^3 10*3/mm3 142-424 Lab Report: HGBA1C - Chemistry hemoglobin A1C, blood, as % of total hemoglobin 7.7 % 4.3-6.0 Lab Report: HGBA1C, Basic Metabolic Panel - Chemistry hemoglobin A1C, blood, as % of total hemoglobin 8.5 % 4.3-6.0 sodium, serum 137 mmol/L 037-995 3666/02/12 potassium, serum 5.1 mmol/L 3.5-5.2 chloride, serum 103 mmol/L 98-107 carbon dioxide, venous blood 24.4 mmol/L 21.0-32.0 blood glucose 261 mg/dL 65-110 calcium, serum 9.0 mg/dL 8.5-10.1 urea nitrogen, blood 44 mg/dL 7-18 creatinine, serum 2.37 mg/dL 0.55-1.30 Lab Report: Uric Acid - Chemistry uric acid, serum 6.3 mg/dL 2.6-7.2 Encounters Code Encounter Date Provider Facility CPT-88339 Level 3 Est. Patient 09:18:25 CDT Simon Castillo MD [facility] CPT-17054 Level 4 Est. Patient 11:51:23 CDT Simon Castillo MD [facility] CPT-27550 Level 4 Est. Patient 14:32:04 CDT Neto Oshea DO [facility] CPT-36615 Level 3 Est. Patient 08:41:43 CDT Jimeli Salcidol [facility] CPT-08475 Level 3 Est. Patient 08:40:53 CDT Jillina Frazell [facility] CPT-28295 Level 3 Est. Patient 08:36:52 CDT Jillina Frazell [facility] CPT-67003 Level 3 Est. Patient 09:08:44 CDT Jilltriston Nashzell [facility] CPT-66895 Level 4 Est. Patient 09:17:[address] [employer]PER[employer] Simon Castillo MD [facility] CPT-74455 Level 3 Est. Patient 11:22:[address] SUPERVISOR Simon Castillo MD [facility] CPT-67835 Level 3 Est. Patient 09:02:14 CDT Simon Castillo MD [facility] CPT-89873 Level 4 Est. Patient 08:47:25 CDT Simon Castillo MD [facility] CPT-64394 Level 4 Est. Patient 10:17:25 CDT Simon Castillo MD [facility] CPT-83958 Level 4 Est. Patient 10:10:[address] SUPER[employer]OR Simon Castillo MD [facility] CPT-14763 Level 4 Est. Patient 11:48:19 CDT Simon Castillo MD [facility] CPT-52342 Level 4 Est. Patient 08:59:29 CDT Simon Castillo MD [facility] CPT-46850 Level 4 Est. Patient 10:52:[address] SUPERVISOR Simon Castillo MD [facility] CPT-38999 Level 4 Est. Patient 11:50:30 CDT Simon Castillo MD [facility] CPT-92553 Level 4 Est. Patient 09:54:46 CDT Simon Castillo MD [facility] CPT-01901 Level 3 Est. Patient 11:10:14 CDT Simon Castillo MD [facility] CPT-35727 Level 4 Est. Patient 09:44:02 CDT Simon Castillo MD [facility] CPT-58352 Level 3 Est. Patient 09:27:48 CDT Simon Castillo MD [facility] CPT-42589 Level 3 Est. Patient 09:58:[address] SUPERVISOR Simon Castillo MD [facility] CPT-89917 Level 3 Est. Patient 09:51:35 CDT Simon Castillo MD [facility] Procedures Code Procedure Name Date Entry Date Standard Description CPT-82966 First Vx - Ix admin for Medicare patients 17:33:39 CDT CPT-05909 Fluzone High-Dose Intramuscular Suspension 17:33:39 CDT CPT-G0438 Initial Annual Wellness Exam 08:57:30 CDT CPT-43963 Chest 2V Frontal and Lat - XRAY USE ONLY 09:00:14 CDT CPT-06210 Venipuncture Draw Fee 13:33:02 CDT CPT-65240 Bone Density 09:37:[address] SUPERVISOR CPT-05328 Fluzone High Dose 17:20:42 CDT CPT-40442 Prevnar 13 17:20:42 CDT CPT-89860 Administration 2+ single or combination vaccines inc oral 2015/10/ 15 17:20:42 CDT CPT-54091 Administration single or combination vaccine inc oral 17 :20:42 CDT CPT-76653 Hand comp min 3V 09:24:38 CDT CPT-02286 Venipuncture Draw Fee 08:07:[address] SUPERVISOR CPT-55638 Venipuncture Draw Fee 09:02:[address] SUPERVISOR CPT-26927 Venipuncture Draw Fee 12:45:[address] SUPERVISOR CPT-99995 Venipuncture Draw Fee 09:25:31 CDT CPT-G0008 Administration of Influenza Virus Vaccine 14:41:29 CDT CPT-62415 Fluzone High-Dose Intramuscular Suspension 14:41:29 CDT CPT-Cryo Cryotherapy 11:48:20 CDT CPT-19236 EKG Trac and Interp 09:21:58 CDT CPT-97268 Chest 2V Frontal and Lat 09:21:58 CDT CPT-Cryo Cryotherapy 10:54:[address] SUPERVISOR CPT-61681 Administration 2+ single or combination vaccines inc oral 10:42:19 CDT CPT-90196 Administration single or combination vaccine inc oral 10 :42:19 CDT CPT-18632 Pneumovax 10:42:19 CDT CPT-70477 Influenza High Dose age 65+ 10:42:19 CDT CPT-82756 Administration single or combination vaccine inc oral 13 :18:54 CDT CPT-24724 Influenza High Dose age 65+ 13:18:54 CDT CPT-73371 Venipuncture Draw Fee 11:53:16 CDT CPT-52536 LS spine comp w obliq 11:03:13 CDT CPT-Cryo Cryotherapy 08:27:[address] SUPERVISOR CPT-28956 Administration single or combination vaccine inc oral 10 :56:34 CDT CPT-02447 Influenza High Dose age 65+ 10:56:34 CDT
--- OUTSIDE RECORDS SUMMARY | 2018-03-31 18:53 | XMS REPORT | Clinical Summary ---
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 ICD-V58.65 Inactive Simon Castillo MD [...] MG ORAL TABS 1 po qd BUMETANIDE 18755938718 Active Simon Castillo MD Active AUGMENTIN 875-125 MG ORAL TABS 1 po BID x 10 days AMOXICILLIN-POT CLAVULANATE 38040806246 No Longer Active Simon Castillo MD Active PIOGLITAZONE HCL 30 MG ORAL TABS 1 po qd PIOGLITAZONE HCL 73402109094 Active Simon Castillo MD Active GLIMEPIRIDE 4 MG ORAL TABS 1 po BID GLIMEPIRIDE 71418506452 Active Simon Castillo MD Active ASPIRIN EC 81 MG ORAL TBEC 1 po qd ASPIRIN 08709157269 Active Simon Castillo MD Active CLOTRIMAZOLE 1 % EXT CREA Apply to affected area of feet twice daily PRN Rash CLOTRIMAZOLE 79406263046 No Longer Active Simon Castillo MD Active PREDNISONE 5 MG TAB 1 po BID PREDNISONE 99924686007 Active Simon Castillo MD Active FISH OIL 1000 MG CPDR 1 po BID OMEGA-3 FATTY ACIDS 23853416883 Active Simon Castillo MD Active LISINOPRIL 10 MG TABS 1 p qd LISINOPRIL 36384020569 Active Simon Castillo MD Active CLARITIN 10 MG TAB 1 tablet by mouth daily as needed for allergies LORATADINE 86642644233 No Longer Active Simon Castillo MD Active TRIAMCINOLONE ACETONIDE 0.1 % OINT Apply to affected areas TID for up to 2 weeks TRIAMCINOLONE ACETONIDE 85052386310 No Longer Active Simon Castillo MD Active LASIX 20 MG TAB 1 tablet by mouth daily x 2 days FUROSEMIDE 50921688526 No Longer Active Simon Castillo MD Active SULFASALAZINE 500 MG ORAL TBEC 2 tabs BID SULFASALAZINE 94718253228 No Longer Active Neto Oshea DO Active PREDNISONE 20 MG TAB 2 tabs daily for 3 days, 1 tab daily for 3 days, 1/2 tab daily for 2 days PREDNISONE 83937047221 No Longer Active Jillina Frazell ENTOMOLOGY PROFESSOR Active PREDNISONE 20 MG TAB 1 tablet daily for airway inflammation 02/25 PREDNISONE 29359971578 No Longer Active Jillina Frazell ENTOMOLOGY PROFESSOR Active AZITHROMYCIN 250 MG TABS 2 po qd x 1 day, then 1 po qd x 4 days AZITHROMYCIN 96719608932 No Longer Active Jillina Frazell ENTOMOLOGY PROFESSOR Active HYDROCODONE-ACETAMINOPHEN 5-325 MG TABS 1 tab by mouth 8 hours as needed for pain HYDROCODONE-ACETAMINOPHEN 18962926964 Active Simon Castillo MD Active TRAMADOL HCL 50 MG TABS 1 po q6hr PRN Pain TRAMADOL HCL 77831698897 No Longer Active Simon Castillo MD Active PREDNISONE 5 MG TABS 1 po qod PREDNISONE 56217314884 No Longer Active Simon Castillo MD Active SYMBICORT 160-4.5 MCG/ACT AERO 2 puff BID BUDESONIDE- FORMOTEROL FUMARATE 98919655321 No Longer Active Simon Castillo MD Active FLONASE 50 MCG/ACT SUSP 2 puffs in each nostril daily FLUTICASONE PROPIONATE 49578631529 No Longer Active Simon Castillo MD Active PREDNISONE 20 MG TAB 2 tabs daily for 5 days, then 1 daily for 5 days PREDNISONE 84979472212 No Longer Active iSmon Castillo MD Active PREDNISONE 20 MG TAB 2 tabs daily for 5 days, then 1 daily for 5 days, then 0.5 for 4 days PREDNISONE 18791500511 No Longer Active Simon Castillo MD Active PREDNISONE 20 MG TAB 2 tabs daily for 3 days, 1 tab daily for 3 days, 1/2 tab daily for 2 days PREDNISONE 86717677475 No Longer Active Simon Castillo MD Active AZITHROMYCIN 250 MG TABS 2 po qd x 1 day, then 1 po qd x 4 days AZITHROMYCIN 35888418848 No Longer Active Simon Castillo MD Active CARVEDILOL 6.25 MG TABS 1 po BID CARVEDILOL 88338714318 Active Simon Castillo MD Active LISINOPRIL-HYDROCHLOROTHIAZIDE 20-12.5 MG TABS 1/2 tab by mouth daily LISINOPRIL-HYDROCHLOROTHIAZIDE 68819280866 No Longer Active Simon Castillo MD Active TRAMADOL HCL 50 MG TABS 1-2 tablets every 6 hours as needed for pain TRAMADOL HCL 47146893347 Active Giles Tatum APRN Active PREDNISONE 5 MG TAB Take one po qod PREDNISONE 08106151095 No Longer Active Simon Castillo MD Active GLYBURIDE 5 MG TAB Take one by mouth daily GLYBURIDE 81319459350 No Longer Active Simon Castillo MD Active LEVAQUIN 750 MG TABS 1 po qod x 5 doses LEVOFLOXACIN 23759730870 No Longer Active Simon Castillo MD Active CETIRIZINE HCL 10 MG TABS 1 po qd as needed for allergies CETIRIZINE HCL 16978935248 No Longer Active Simon Castillo MD Active BILBERRY CAPS 1 tab daily BILBERRY (VACCINIUM MYRTILLUS) CAPS 70486569404 Active Simon Castillo MD Active ATENOLOL 50 MG TABS Take one by mouth daily ATENOLOL 62434696182 No Longer Active Simon Castillo MD Active FLONASE 50 MCG/ACT SUSP 2 puffs in each nostril daily FLUTICASONE PROPIONATE 19816893186 No Longer Active Simon Castillo MD Active GLYBURIDE 5 MG TAB Take one by mouth daily GLYBURIDE 23292972890 No Longer Active Simon Castillo MD Active SYMBICORT 80-4.5 MCG/ACT AERO 2 puffs twice a day BUDESONIDE-FORMOTEROL FUMARATE 84690430330 No Longer Active Simon Castillo MD Active PREDNISONE 20 MG TAB 2 tabs daily for 4 days, 1 tab daily for 4 days, 1/2 tab daily for 4 days PREDNISONE 30521953161 No Longer Active Simon Castillo MD Active AMOXICILLIN 500 MG CAPS 2 po BID x 10 days AMOXICILLIN 92498665000 No Longer Active Simon Castillo MD Active METFORMIN HCL 1000 MG TABS 1 [facility] twice a day METFORMIN HCL 76938460826 No Longer Active Simon Castillo MD Active LUTEIN-ZEAXANTHIN 6-1 MG TABS Take 2 by mouth daily LUTEIN-ZEAXANTHIN 14812171526 Active Simon Castillo MD Active IBUPROFEN 800 MG TABS Take 1 tab every 6 hrs prn IBUPROFEN 19812789933 No Longer Active Simon Castillo MD Active GLYBURIDE 2.5 MG TABS Take one by mouth daily GLYBURIDE 32995799027 No Longer Active Simon Castillo MD Active LANCETS MISC 2 qd LANCETS 95999554871 Active Pamela Conde Active ACACIA CONTOUR TEST STRP Use with testing twice daily GLUCOSE BLOOD 52386331996 Active Simon Castillo MD Active GLYBURIDE 2.5 MG TABS Take one by mouth daily GLYBURIDE 2.5 MG TABS 027842 GLYBURIDE Inactive PREDNISONE 20 MG TAB 2 tabs daily for 4 days, 1 tab daily for 4 days, 1/2 tab daily for 4 days PREDNISONE 20 MG TAB 864098 PREDNISONE Inactive SYMBICORT 80-4.5 MCG/ACT AERO 2 puffs twice a day SYMBICORT 80-4.5 MCG/ACT AERO BUDESONIDE-FORMOTEROL FUMARATE Inactive FLONASE 50 MCG/ACT SUSP 2 puffs in each nostril daily FLONASE 50 MCG/ACT SUSP 8766494 FLUTICASONE PROPIONATE Inactive ATENOLOL 50 MG TABS Take one by mouth daily ATENOLOL 50 MG TABS 068189 ATENOLOL Inactive CETIRIZINE HCL 10 MG TABS 1 po qd as needed for allergies CETIRIZINE HCL 10 MG TABS 9630639 CETIRIZINE HCL Inactive LEVAQUIN 750 MG TABS 1 po qod x 5 doses LEVAQUIN 750 MG TABS 704628 LEVOFLOXACIN Inactive GLYBURIDE 5 MG TAB Take one by mouth daily GLYBURIDE 5 MG TAB 025700 GLYBURIDE Inactive PREDNISONE 5 MG TAB Take one po qod PREDNISONE 5 MG TAB 740821 PREDNISONE Inactive PREDNISONE 20 MG TAB 2 tabs daily for 5 days, then 1 daily for 5 days PREDNISONE 20 MG TAB 793659 PREDNISONE Inactive FLONASE 50 MCG/ACT SUSP 2 puffs in each nostril daily FLONASE 50 MCG/ACT SUSP 9705302 FLUTICASONE PROPIONATE Inactive SYMBICORT 160-4.5 MCG/ACT AERO 2 puff BID SYMBICORT 160-4.5 MCG/ACT AERO BUDESONIDE-FORMOTEROL FUMARATE Inactive PREDNISONE 5 MG TABS 1 po qod PREDNISONE 5 MG TABS 134650 PREDNISONE Inactive PREDNISONE 20 MG TAB 1 tablet daily for airway inflammation 02/25 PREDNISONE 20 MG TAB 127763 PREDNISONE Inactive SULFASALAZINE 500 MG ORAL TBEC 2 tabs BID SULFASALAZINE 500 MG ORAL TBEC 112405 SULFASALAZINE Inactive LASIX 20 MG TAB 1 tablet by mouth daily x 2 days LASIX 20 MG TAB 292996 FUROSEMIDE Inactive CLARITIN 10 MG TAB 1 tablet by mouth daily as needed for allergies CLARITIN 10 MG TAB 817147 LORATADINE Inactive CLOTRIMAZOLE 1 % EXT CREA Apply to affected area of feet twice daily PRN Rash CLOTRIMAZOLE 1 % EXT CREA 759927 CLOTRIMAZOLE Inactive AMOXICILLIN 500 MG CAPS 2 po BID x 10 days AMOXICILLIN 500 MG CAPS 173657 AMOXICILLIN Inactive GLYBURIDE 5 MG TAB Take one by mouth daily GLYBURIDE 5 MG TAB 973943 GLYBURIDE Inactive AZITHROMYCIN 250 MG TABS 2 po qd x 1 day, then 1 po qd x 4 days AZITHROMYCIN 250 MG TABS 903685 AZITHROMYCIN Inactive PREDNISONE 20 MG TAB 2 tabs daily for 3 days, 1 tab daily for 3 days, 1/2 tab daily for 2 days PREDNISONE 20 MG TAB 761851 PREDNISONE Inactive PREDNISONE 20 MG TAB 2 tabs daily for 5 days, then 1 daily for 5 days, then 0.5 for 4 days PREDNISONE 20 MG TAB 238507 PREDNISONE Inactive AZITHROMYCIN 250 MG TABS 2 po qd x 1 day, then 1 po qd x 4 days AZITHROMYCIN 250 MG TABS 820449 AZITHROMYCIN Inactive PREDNISONE 20 MG TAB 2 tabs daily for 3 days, 1 tab daily for 3 days, 1/2 tab daily for 2 days PREDNISONE 20 MG TAB 590968 PREDNISONE Inactive TRIAMCINOLONE ACETONIDE 0.1 % OINT Apply to affected areas TID for up to 2 weeks TRIAMCINOLONE ACETONIDE 0.1 % OINT 4346322 TRIAMCINOLONE ACETONIDE Inactive AUGMENTIN 875-125 MG ORAL TABS 1 po BID x 10 days AUGMENTIN 875-125 MG ORAL TABS 322934 AMOXICILLIN-POT CLAVULANATE Inactive Immunizations Vaccine Administration Date [...] Peptide - Chemistry sodium, serum 142 mmol/L 886-088 9542/07/18 potassium, serum 5.0 mmol/L 3.5-5.2 chloride, serum [...] Panel - Chemistry sodium, serum 140 mmol/L 354-405 4553/07/13 carbon dioxide, venous blood 23.7 mmol/L 21.0-32.0 [...] 7.8 % 4.3-6.0 Lab Report: Lipid Panel, [facility], Comp. Metabolic Panel - Chemistry cholesterol, serum 126 mg/dL 767-953 2476/02/07 triglyceride, serum, fasting 83 mg/dL 30-200 HDL cholesterol, serum 70 mg/dL 32-96 LDL cholesterol, serum 39 mg/dL 0-130 hemoglobin A1C, blood, as % of total hemoglobin 8.3 % 4.3-6.0 sodium, serum 141 mmol/L 124-948 2707/02/07 carbon dioxide, venous blood 26.0 mmol/L 21.0-32.0 [...] 0.00-1.00 Encounters Code Encounter Date Provider Facility CPT-47099 Level 4 Est. Patient 09:54:36 CDT Simon Castillo MD [facility] CPT-65220 Level 4 Est. Patient 08:48:38 CDT Simon Castillo MD [facility] CPT-33844 Level 4 Est. Patient 09:54:08 CDT Simon Castillo MD [facility] CPT-84644 Level 4 Est. Patient 16:11:23 CDT Simon Castillo MD [facility] CPT-99987 Level 4 Est. Patient 09:29:28 DATA WAREHOUSE CONSULTANT Simon Castillo [facility] CPT-23017 Level 3 Est. Patient 09:18:25 CDT Simon Castillo MD [facility] CPT-00243 Level 4 Est. Patient 11:51:23 CDT Simon Castillo MD [facility] CPT-03974 Level 4 Est. Patient 14:32:04 CDT Neto Oshea DO [facility] CPT-19713 Level 3 Est. Patient 08:41:43 CDT Giles Tatum [facility] CPT-78944 Level 3 Est. Patient 08:40:53 CDT Giles Tatum [facility] CPT-13757 Level 3 Est. Patient 08:36:52 CDT Giles Tatum [facility] CPT-23248 Level 3 Est. Patient 09:08:44 CDT Giles Tatum [facility] CPT-36560 Level 4 Est. Patient 09:17:32 DATA WAREHOUSE CONSULTANT Simon Castillo MD [facility] CPT-32498 Level 3 Est. Patient 11:22:22 DATA WAREHOUSE CONSULTANT Simon Castillo MD [facility] CPT-24959 Level 3 Est. Patient 09:02:14 CDT Simon Castillo MD [facility] CPT-70152 Level 4 Est. Patient 08:47:25 CDT Simon Castillo MD [facility] CPT-24614 Level 4 Est. Patient 10:17:25 CDT Simon Castillo MD [facility] CPT-35615 Level 4 Est. Patient 10:10:09 DATA WAREHOUSE CONSULTANT Simon Castillo MD [facility] CPT-01482 Level 4 Est. Patient 11:48:19 CDT Simon Castillo MD [facility] CPT-74190 Level 4 Est. Patient 08:59:29 CDT Simon Castillo MD [facility] CPT-69003 Level 4 Est. Patient 10:52:51 DATA WAREHOUSE CONSULTANT Simon Castillo MD [facility] CPT-91591 Level 4 Est. Patient 11:50:30 CDT Simon Castillo MD [facility] CPT-52718 Level 4 Est. Patient 09:54:46 CDT Simon Castillo MD [facility] CPT-32149 Level 3 Est. Patient 11:10:14 CDT Simon Castillo MD [facility] CPT-77003 Level 4 Est. Patient 09:44:02 CDT Simon Castillo MD [facility] CPT-77419 Level 3 Est. Patient 09:27:48 CDT Simon Castillo MD [facility] CPT-26919 Level 3 Est. Patient 09:58:06 DATA WAREHOUSE CONSULTANT Simon Castillo MD [facility] CPT-25958 Level 3 Est. Patient 09:51:35 CDT Simon Castillo MD [facility] Procedures Code Procedure Name Date Entry Date Standard Description CPT-Cryo Cryotherapy 09:54:37 CDT CPT-54166 First Vx - Ix admin for Medicare patients 09:13:10 CDT CPT-77315 Fluzone High-Dose Intramuscular Suspension 09:13:10 CDT CPT-G0439 Subsequent Annual Wellness Exam 09:41:17 CDT CPT-80664 Lipid - LAB USE ONLY 17:15:33 CDT CPT-78790 HGBA1C - LAB USE ONLY 17:15:33 CDT CPT-23716 CMP - LAB USE ONLY 17:15:33 CDT CPT-69026 Venipuncture Draw Fee 17:15:33 CDT CPT-TCMH Transitional Care Mgmt-High 11:01:28 DATA WAREHOUSE CONSULTANT CPT-83224 First Vx - Ix admin for Medicare patients 17:33:39 CDT CPT-97778 Fluzone High-Dose Intramuscular Suspension 17:33:39 CDT CPT-G0438 Initial Annual Wellness Exam 08:57:30 CDT CPT-29263 Chest 2V Frontal and Lat - XRAY USE ONLY 09:00:14 CDT CPT-37665 Venipuncture Draw Fee 13:33:02 CDT CPT-72543 Bone Density 09:37:49 DATA WAREHOUSE CONSULTANT CPT-03369 Fluzone High Dose 17:20:42 CDT CPT-47084 Prevnar 13 17:20:42 CDT CPT-81601 Administration 2+ single or combination vaccines inc oral 17:20:42 CDT CPT-06226 Administration single or combination vaccine inc oral 17 :20:42 CDT CPT-56039 Hand comp min 3V 09:24:38 CDT CPT-28854 Venipuncture Draw Fee 08:07:29 DATA WAREHOUSE CONSULTANT CPT-85877 Venipuncture Draw Fee 09:02:51 DATA WAREHOUSE CONSULTANT CPT-46486 Venipuncture Draw Fee 12:45:08 DATA WAREHOUSE CONSULTANT CPT-42415 Venipuncture Draw Fee 09:25:31 CDT CPT-G0008 Administration of Influenza Virus Vaccine 14:41:29 CDT CPT-70593 Fluzone High-Dose Intramuscular Suspension 14:41:29 CDT CPT-Cryo Cryotherapy 11:48:20 CDT CPT-93695 EKG Trac and Interp 09:21:58 CDT CPT-60740 Chest 2V Frontal and Lat 09:21:58 CDT CPT-Cryo Cryotherapy 10:54:51 DATA WAREHOUSE CONSULTANT CPT-41684 Administration 2+ single or combination vaccines inc oral 10:42:19 CDT CPT-64621 Administration single or combination vaccine inc oral 10 :42:19 CDT CPT-23513 Pneumovax 10:42:19 CDT CPT-01222 Influenza High Dose age 65+ 10:42:19 CDT CPT-83252 Administration single or combination vaccine inc oral 13 :18:54 CDT CPT-31008 Influenza High Dose age 65+ 13:18:54 CDT CPT-66690 Venipuncture Draw Fee 11:53:16 CDT CPT-94938 LS spine comp w obliq 11:03:13 CDT CPT-Cryo Cryotherapy 08:27:16 DATA WAREHOUSE CONSULTANT CPT-29336 Administration single or combination vaccine inc oral 10 :56:34 CDT CPT-35023 Influenza High Dose age 65+ 10:56:34 CDT
--- OUTSIDE RECORDS SUMMARY | 2018-03-31 18:54 | XMS REPORT | Clinical Summary ---
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 ICD-V58.65 Inactive Simon Castillo MD Hand pain, bilateral ICD-729.5 Inactive Simon Castillo MD Medication List Medication Instructions Start Date Stop Date Generic Name NDC Status Provider Patient Instruction CLARITIN 10 MG TAB 1 tablet by mouth daily as needed for allergies LORATADINE 34710616544 Active Jillina Fraamayal FEDERAL AGENT Active PREDNISONE 20 MG TAB 1 tablet daily for airway inflammation PREDNISONE 59397514653 Active Jillina Frazell FEDERAL AGENT Active AZITHROMYCIN 250 MG TABS 2 po qd x 1 day, then 1 po qd x 4 days AZITHROMYCIN 05720200907 No Longer Active Jillina Lloyl FEDERAL AGENT Active GLIMEPIRIDE 2 MG ORAL TABS 1 po q a.m. GLIMEPIRIDE 35393345408 Active Simon Castillo MD Active HYDROCODONE-ACETAMINOPHEN 5-325 MG TABS 1 tab by mouth 8 hours as needed for pain HYDROCODONE-ACETAMINOPHEN 00418167304 Active Simon Castillo MD Active TRAMADOL HCL 50 MG TABS 1 po q6hr PRN Pain TRAMADOL HCL 42959106612 No Longer Active Simon Castillo MD Active PREDNISONE 5 MG TAB 1-2 tabs daily for rheumatoid arthritis PREDNISONE 20707250403 Active Simon Castillo MD Active PREDNISONE 5 MG TABS 1 po qod PREDNISONE 82336004373 No Longer Active Simon Castillo MD Active SYMBICORT 160-4.5 MCG/ACT AERO 2 puff BID BUDESONIDE- FORMOTEROL FUMARATE 42798964661 No Longer Active Simon Castillo MD Active FLONASE 50 MCG/ACT SUSP 2 puffs in each nostril daily FLUTICASONE PROPIONATE 10596934708 No Longer Active Simon Castillo MD Active PREDNISONE 20 MG TAB 2 tabs daily for 5 days, then 1 daily for 5 days PREDNISONE 46272019910 No Longer Active Simon Castillo MD Active PREDNISONE 20 MG TAB 2 tabs daily for 5 days, then 1 daily for 5 days, then 0.5 for 4 days PREDNISONE 59546417359 No Longer Active Simon Castillo MD Active CLOTRIMAZOLE 1 % EXT CREA Apply to affected area of feet twice daily PRN Rash CLOTRIMAZOLE 57094906671 Active Simon Castillo MD Active PREDNISONE 20 MG TAB 2 tabs daily for 3 days, 1 tab daily for 3 days, 1/2 tab daily for 2 days PREDNISONE 59332840790 No Longer Active Simon Castillo MD Active AZITHROMYCIN 250 MG TABS 2 po qd x 1 day, then 1 po qd x 4 days AZITHROMYCIN 82959764975 No Longer Active Simon Castillo MD Active LISINOPRIL 10 MG TABS 1 tablet by mouth daily LISINOPRIL 31149715471 Active Simon Castillo MD Active CARVEDILOL 6.25 MG TABS 1 po BID CARVEDILOL 33876260390 Active Simon Castillo MD Active LISINOPRIL-HYDROCHLOROTHIAZIDE 20-12.5 MG TABS 1/2 tab by mouth daily LISINOPRIL-HYDROCHLOROTHIAZIDE 12024123827 No Longer Active Simon Castillo MD Active TRAMADOL HCL 50 MG TABS 1-2 tablets every 6 hours as needed for pain TRAMADOL HCL 76198998887 Active Giles Tatum APRN Active PREDNISONE 5 MG TAB Take one po qod PREDNISONE 70614849262 No Longer Active Simon Castillo MD Active GLYBURIDE 5 MG TAB Take one by mouth daily GLYBURIDE 63954217825 No Longer Active Simon Castillo MD Active LEVAQUIN 750 MG TABS 1 po qod x 5 doses LEVOFLOXACIN 13217262281 No Longer Active Simon Castillo MD Active CETIRIZINE HCL 10 MG TABS 1 po qd as needed for allergies CETIRIZINE HCL 54785935256 No Longer Active Simon Castillo MD Active FISH OIL 1000 MG CPDR 1 pill by mouth twice daily for cholesterol OMEGA -3 FATTY ACIDS 16479672235 Active Simon Castillo MD Active BILBERRY CAPS 1 tab daily BILBERRY (VACCINIUM MYRTILLUS) CAPS 34606925681 Active Simon Castillo MD Active ATENOLOL 50 MG TABS Take one by mouth daily ATENOLOL 83609445722 No Longer Active Simon Castillo MD Active FLONASE 50 MCG/ACT SUSP 2 puffs in each nostril daily FLUTICASONE PROPIONATE 18497790996 No Longer Active Simon Castillo MD Active GLYBURIDE 5 MG TAB Take one by mouth daily GLYBURIDE 66776052246 No Longer Active Simon Castillo MD Active SYMBICORT 80-4.5 MCG/ACT AERO 2 puffs twice a day BUDESONIDE-FORMOTEROL FUMARATE 00194832336 No Longer Active Simon Castillo MD Active PREDNISONE 20 MG TAB 2 tabs daily for 4 days, 1 tab daily for 4 days, 1/2 tab daily for 4 days PREDNISONE 74448078962 No Longer Active Simon Castillo MD Active AMOXICILLIN 500 MG CAPS 2 po BID x 10 days AMOXICILLIN 13158335960 No Longer Active Simon Castillo MD Active METFORMIN HCL 1000 MG TABS 1 by mounth twice a day METFORMIN HCL 96972974793 No Longer Active Simon Castillo MD Active LUTEIN-ZEAXANTHIN 6-1 MG TABS Take 2 by mouth daily LUTEIN-ZEAXANTHIN 64503104345 Active Simon Castillo MD Active IBUPROFEN 800 MG TABS Take 1 tab every 6 hrs prn IBUPROFEN 79490943792 No Longer Active Simon Castillo MD Active GLYBURIDE 2.5 MG TABS Take one by mouth daily GLYBURIDE 93927117523 No Longer Active Simon Castillo MD Active LANCETS MISC 2 qd LANCETS 57756026252 Active Pamela Conde Active ACACIA CONTOUR TEST STRP Use with testing twice daily GLUCOSE BLOOD 89449052929 Active Simon Castillo MD Active ACACIA ASPIRIN 325 MG TABS Take one by mouth daily ASPIRIN 05362026570 Active Pamela Conde Active GLYBURIDE 2.5 MG TABS Take one by mouth daily GLYBURIDE 2.5 MG TABS 175935 GLYBURIDE Inactive PREDNISONE 20 MG TAB 2 tabs daily for 4 days, 1 tab daily for 4 days, 1/2 tab daily for 4 days PREDNISONE 20 MG TAB 147803 PREDNISONE Inactive SYMBICORT 80-4.5 MCG/ACT AERO 2 puffs twice a day SYMBICORT 80-4.5 MCG/ACT AERO BUDESONIDE-FORMOTEROL FUMARATE Inactive FLONASE 50 MCG/ACT SUSP 2 puffs in each nostril daily FLONASE 50 MCG/ACT SUSP 431458 FLUTICASONE PROPIONATE Inactive ATENOLOL 50 MG TABS Take one by mouth daily ATENOLOL 50 MG TABS 967628 ATENOLOL Inactive CETIRIZINE HCL 10 MG TABS 1 po qd as needed for allergies CETIRIZINE HCL 10 MG TABS 7658070 CETIRIZINE HCL Inactive LEVAQUIN 750 MG TABS 1 po qod x 5 doses LEVAQUIN 750 MG TABS 481445 LEVOFLOXACIN Inactive GLYBURIDE 5 MG TAB Take one by mouth daily GLYBURIDE 5 MG TAB 818351 GLYBURIDE Inactive PREDNISONE 5 MG TAB Take one po qod PREDNISONE 5 MG TAB 986819 PREDNISONE Inactive PREDNISONE 20 MG TAB 2 tabs daily for 5 days, then 1 daily for 5 days PREDNISONE 20 MG TAB 888780 PREDNISONE Inactive FLONASE 50 MCG/ACT SUSP 2 puffs in each nostril daily FLONASE 50 MCG/ACT SUSP 311034 FLUTICASONE PROPIONATE Inactive SYMBICORT 160-4.5 MCG/ACT AERO 2 puff BID SYMBICORT 160-4.5 MCG/ACT AERO BUDESONIDE-FORMOTEROL FUMARATE Inactive PREDNISONE 5 MG TABS 1 po qod PREDNISONE 5 MG TABS 069078 PREDNISONE Inactive AMOXICILLIN 500 MG CAPS 2 po BID x 10 days AMOXICILLIN 500 MG CAPS 249896 AMOXICILLIN Inactive GLYBURIDE 5 MG TAB Take one by mouth daily GLYBURIDE 5 MG TAB 269349 GLYBURIDE Inactive AZITHROMYCIN 250 MG TABS 2 po qd x 1 day, then 1 po qd x 4 days AZITHROMYCIN 250 MG TABS 5514907 AZITHROMYCIN Inactive PREDNISONE 20 MG TAB 2 tabs daily for 3 days, 1 tab daily for 3 days, 1/2 tab daily for 2 days PREDNISONE 20 MG TAB 301902 PREDNISONE Inactive PREDNISONE 20 MG TAB 2 tabs daily for 5 days, then 1 daily for 5 days, then 0.5 for 4 days PREDNISONE 20 MG TAB 809721 PREDNISONE Inactive AZITHROMYCIN 250 MG TABS 2 po qd x 1 day, then 1 po qd x 4 days AZITHROMYCIN 250 MG TABS 4407353 AZITHROMYCIN Inactive Immunizations Vaccine Administration Date Value [...] Panel - Chemistry sodium, serum 132 mmol/L 909-516 4869/10/26 carbon dioxide, venous blood 22.8 mmol/L 21.0-32.0 [...] Panel - Chemistry sodium, serum 139 mmol/L 195-138 6921/03/17 carbon dioxide, venous blood 29.0 mmol/L 21.0-32.0 [...] Rate - Chemistry sodium, serum 136 mmol/L 428-885 9378/09/18 carbon dioxide, venous blood 24.3 mmol/L 21.0-32.0 [...] HGBA1C - Chemistry sodium, serum 139 mmol/L 254-051 0836/07/09 potassium, serum 5.4 mmol/L 3.5-5.2 chloride, serum [...] 5.1 mmol/L 3.5-5.2 sodium, serum 137 mmol/L 685-919 2244/02/12 hemoglobin A1C, blood, as % of total hemoglobin 8.5 % 4.3-6.0 creatinine, serum 2.37 mg/dL 0.55-1.30 urea nitrogen, blood 44 mg/dL 7-18 calcium, serum 9.0 mg/dL 8.5-10.1 blood glucose 261 mg/dL 65-110 carbon dioxide, venous blood 24.4 mmol/L 21.0-32.0 Lab Report: Lipid Panel - Chemistry cholesterol, serum 139 mg/dL 213-465 2775/09/10 triglyceride, serum, fasting 176 mg/dL 30-200 HDL cholesterol, serum 45 mg/dL 32-96 LDL cholesterol, serum 59 mg/dL 0-130 Lab Report: MICROALBUMIN - Chemistry albumin/creatinine ratio, urine 30 - 300 mg/g mg/g{creat} 0-29 Lab Report: MICROALBUMIN - Lab microalbumin, urine 30 0-19 Encounters Code Encounter Date Provider Facility CPT-29031 Level 3 Est. Patient 09:08:44 CDT Giles Tatum APRN [facility] CPT-92400 Level 4 Est. Patient 09:17:32 PHOTO OFFSET PRINTER Simon Castillo MD [facility] CPT-13432 Level 3 Est. Patient 11:22:22 PHOTO OFFSET PRINTER Simon Castillo MD [facility] CPT-97541 Level 3 Est. Patient 09:02:14 CDT Simon Castillo MD [facility] CPT-76688 Level 4 Est. Patient 08:47:25 CDT Simon Castillo MD [facility] CPT-59025 Level 4 Est. Patient 10:17:25 CDT Simon Castillo MD [facility] CPT-63141 Level 4 Est. Patient 10:10:09 PHOTO OFFSET PRINTER Simon Castillo MD [facility] CPT-02195 Level 4 Est. Patient 11:48:19 CDT Simon Castillo MD [facility] CPT-80425 Level 4 Est. Patient 08:59:29 CDT Simon Castillo MD [facility] CPT-51206 Level 4 Est. Patient 10:52:51 PHOTO OFFSET PRINTER Simon Castillo MD [facility] CPT-94408 Level 4 Est. Patient 11:50:30 CDT Simon Castillo MD [facility] CPT-07351 Level 4 Est. Patient 09:54:46 CDT Simon Castillo MD [facility] CPT-66665 Level 3 Est. Patient 11:10:14 CDT Simon Castillo MD [facility] CPT-85531 Level 4 Est. Patient 09:44:02 CDT Simon Castillo MD [facility] CPT-79075 Level 3 Est. Patient 09:27:48 CDT Simon Castillo MD [facility] CPT-06156 Level 3 Est. Patient 09:58:06 PHOTO OFFSET PRINTER Simon Castillo MD [facility] CPT-00212 Level 3 Est. Patient 09:51:35 CDT Simon Castillo MD [facility] Procedures Code Procedure Name Date Entry Date Standard Description CPT-03555 Venipuncture Draw Fee 13:33:02 CDT CPT-96531 Bone Density 09:37:49 PHOTO OFFSET PRINTER CPT-84643 Fluzone High Dose 17:20:42 CDT CPT-85544 Prevnar 13 17:20:42 CDT CPT-28447 Administration 2+ single or combination vaccines inc oral 17:20:42 CDT CPT-35781 Administration single or combination vaccine inc oral 17 :20:42 CDT CPT-59866 Hand comp min 3V 09:24:38 CDT CPT-95889 Venipuncture Draw Fee 08:07:29 PHOTO OFFSET PRINTER CPT-25949 Venipuncture Draw Fee 09:02:51 PHOTO OFFSET PRINTER CPT-18247 Venipuncture Draw Fee 12:45:08 PHOTO OFFSET PRINTER CPT-33112 Venipuncture Draw Fee 09:25:31 CDT CPT-G0008 Administration of Influenza Virus Vaccine 14:41:29 CDT CPT-34694 Fluzone High-Dose Intramuscular Suspension 14:41:29 CDT CPT-Cryo Cryotherapy 11:48:20 CDT CPT-04657 EKG Trac and Interp 09:21:58 CDT CPT-41861 Chest 2V Frontal and Lat 09:21:58 CDT CPT-Cryo Cryotherapy 10:54:51 PHOTO OFFSET PRINTER CPT-05993 Administration 2+ single or combination vaccines inc oral 10:42:19 CDT CPT-82226 Administration single or combination vaccine inc oral 10 :42:19 CDT CPT-98004 Pneumovax 10:42:19 CDT CPT-25147 Influenza High Dose age 65+ 10:42:19 CDT CPT-34742 Administration single or combination vaccine inc oral 13 :18:54 CDT CPT-98777 Influenza High Dose age 65+ 13:18:54 CDT CPT-38052 Venipuncture Draw Fee 11:53:16 CDT CPT-55210 LS spine comp w obliq 11:03:13 CDT CPT-Cryo Cryotherapy 08:27:16 PHOTO OFFSET PRINTER CPT-78379 Administration single or combination vaccine inc oral 10 :56:34 CDT CPT-16656 Influenza High Dose age 65+ 10:56:34 CDT
--- OUTSIDE RECORDS SUMMARY | 2018-03-31 18:55 | XMS REPORT | Clinical Summary ---
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 Simon Castillo [...] Tinea pedis ICD-110.4 Inactive Simon Castillo MD SCIATICA ICD-724.3 Inactive Simon Castillo MD 2012 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, 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 ICD-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.65 Inactive Simon Castillo MD Hand pain, bilateral ICD-729.5 Inactive Simon Castillo MD Medication List Medication Instructions Start Date Stop Date Generic Name NDC Status Provider Patient Instruction TRIAMCINOLONE ACETONIDE 0.1 % OINT Apply to affected areas TID for up to 2 weeks TRIAMCINOLONE ACETONIDE 15968340282 No Longer Active Simon Castillo MD Active LASIX 20 MG TAB 1 tablet by mouth daily x 2 days FUROSEMIDE 83382757147 No Longer Active Simon Castillo MD Active SULFASALAZINE 500 MG ORAL TBEC 2 tabs BID SULFASALAZINE 09421095929 No Longer Active Neto Oshea DO Active PREDNISONE 20 MG TAB 2 tabs daily for 3 days, 1 tab daily for 3 days, 1/2 tab daily for 2 days PREDNISONE 20023507158 No Longer Active Jillina Frazelalejandrina HEMPHILL Active PREDNISONE 20 MG TAB 1 tablet daily for airway inflammation 02/25 PREDNISONE 62892131745 No Longer Active Jillina Frazell [employer]AKER Active CLARITIN 10 MG TAB 1 tablet by mouth daily as needed for allergies LORATADINE 54529583338 Active Jillina Lolyl [employer]AKER Active AZITHROMYCIN 250 MG TABS 2 po qd x 1 day, then 1 po qd x 4 days AZITHROMYCIN 63559265197 No Longer Active Jillina Frazell [employer] SHAKER Active GLIMEPIRIDE 2 MG ORAL TABS 1 po q a.m. GLIMEPIRIDE 58522666944 Active Simon Castillo MD Active HYDROCODONE-ACETAMINOPHEN 5-325 MG TABS 1 tab by mouth 8 hours as needed for pain HYDROCODONE-ACETAMINOPHEN 40539406153 Active Simon Castillo MD Active TRAMADOL HCL 50 MG TABS 1 po q6hr PRN Pain TRAMADOL HCL 06037136557 No Longer Active Simon Castillo MD Active PREDNISONE 5 MG TAB 1-2 tabs daily for rheumatoid arthritis PREDNISONE 87798904942 Active Simon Castillo MD Active PREDNISONE 5 MG TABS 1 po qod PREDNISONE 38188714763 No Longer Active Simon Castillo MD Active SYMBICORT 160-4.5 MCG/ACT AERO 2 puff BID BUDESONIDE- FORMOTEROL FUMARATE 61716444669 No Longer Active Simon Castillo MD Active FLONASE 50 MCG/ACT SUSP 2 puffs in each nostril daily FLUTICASONE PROPIONATE 95564690338 No Longer Active Simon Castillo MD Active PREDNISONE 20 MG TAB 2 tabs daily for 5 days, then 1 daily for 5 days PREDNISONE 06780154188 No Longer Active Simon Castillo MD Active PREDNISONE 20 MG TAB 2 tabs daily for 5 days, then 1 daily for 5 days, then 0.5 for 4 days PREDNISONE 98008671565 No Longer Active Simon Castillo MD Active CLOTRIMAZOLE 1 % EXT CREA Apply to affected area of feet twice daily PRN Rash CLOTRIMAZOLE 41133269302 Active Simon Castillo MD Active PREDNISONE 20 MG TAB 2 tabs daily for 3 days, 1 tab daily for 3 days, 1/2 tab daily for 2 days PREDNISONE 38761668024 No Longer Active Simon Castillo MD Active AZITHROMYCIN 250 MG TABS 2 po qd x 1 day, then 1 po qd x 4 days AZITHROMYCIN 97817285042 No Longer Active Simon Castillo MD Active LISINOPRIL 10 MG TABS 1 tablet by mouth daily LISINOPRIL 61773663859 Active Simon Castillo MD Active CARVEDILOL 6.25 MG TABS 1 po BID CARVEDILOL 34082705249 Active Simon Castillo MD Active LISINOPRIL-HYDROCHLOROTHIAZIDE 20-12.5 MG TABS 1/2 tab by mouth daily LISINOPRIL-HYDROCHLOROTHIAZIDE 03858229502 No Longer Active Simon Castillo MD Active TRAMADOL HCL 50 MG TABS 1-2 tablets every 6 hours as needed for pain TRAMADOL HCL 03195796330 Active Giles Tatum APRN Active PREDNISONE 5 MG TAB Take one po qod PREDNISONE 14005919200 No Longer Active Simon Castillo MD Active GLYBURIDE 5 MG TAB Take one by mouth daily GLYBURIDE 76023410074 No Longer Active Simon Castillo MD Active LEVAQUIN 750 MG TABS 1 po qod x 5 doses LEVOFLOXACIN 15078116492 No Longer Active Simon Castillo MD Active CETIRIZINE HCL 10 MG TABS 1 po qd as needed for allergies CETIRIZINE HCL 77791523560 No Longer Active Simon Castillo MD Active FISH OIL 1000 MG CPDR 1 pill by mouth twice daily for cholesterol OMEGA -3 FATTY ACIDS 08865741550 Active Simon Castillo MD Active BILBERRY CAPS 1 tab daily BILBERRY (VACCINIUM MYRTILLUS) CAPS 06475908081 Active Simon Castillo MD Active ATENOLOL 50 MG TABS Take one by mouth daily ATENOLOL 46147391594 No Longer Active Simon Castillo MD Active FLONASE 50 MCG/ACT SUSP 2 puffs in each nostril daily FLUTICASONE PROPIONATE 56733588763 No Longer Active Simon Castillo MD Active GLYBURIDE 5 MG TAB Take one by mouth daily GLYBURIDE 58575173158 No Longer Active Simon Castillo MD Active SYMBICORT 80-4.5 MCG/ACT AERO 2 puffs twice a day BUDESONIDE-FORMOTEROL FUMARATE 84993869370 No Longer Active Simon Castillo MD Active PREDNISONE 20 MG TAB 2 tabs daily for 4 days, 1 tab daily for 4 days, 1/2 tab daily for 4 days PREDNISONE 12839709632 No Longer Active Simon Castillo MD Active AMOXICILLIN 500 MG CAPS 2 po BID x 10 days AMOXICILLIN 66048051501 No Longer Active Simon Castillo MD Active METFORMIN HCL 1000 MG TABS 1 by mounth twice a day METFORMIN HCL 41558944611 No Longer Active Simon Castillo MD Active LUTEIN-ZEAXANTHIN 6-1 MG TABS Take 2 by mouth daily LUTEIN-ZEAXANTHIN 25511772375 Active Simon Castillo MD Active IBUPROFEN 800 MG TABS Take 1 tab every 6 hrs prn IBUPROFEN 60247812501 No Longer Active Simon Castillo MD Active GLYBURIDE 2.5 MG TABS Take one by mouth daily GLYBURIDE 63082083248 No Longer Active Simon Castillo MD Active LANCETS MISC 2 qd LANCETS 49352168676 Active Pamela Conde Active ACACIA CONTOUR TEST STRP Use with testing twice daily GLUCOSE BLOOD 54788538411 Active Simon Castillo MD Active ACACIA ASPIRIN 325 MG TABS Take one by mouth daily ASPIRIN 70634250377 Active Pamela Conde Active GLYBURIDE 2.5 MG TABS Take one by mouth daily GLYBURIDE 2.5 MG TABS 771905 GLYBURIDE Inactive PREDNISONE 20 MG TAB 2 tabs daily for 4 days, 1 tab daily for 4 days, 1/2 tab daily for 4 days PREDNISONE 20 MG TAB 274038 PREDNISONE Inactive SYMBICORT 80-4.5 MCG/ACT AERO 2 puffs twice a day SYMBICORT 80-4.5 MCG/ACT AERO BUDESONIDE-FORMOTEROL FUMARATE Inactive FLONASE 50 MCG/ACT SUSP 2 puffs in each nostril daily FLONASE 50 MCG/ACT SUSP FLUTICASONE PROPIONATE Inactive ATENOLOL 50 MG TABS Take one by mouth daily ATENOLOL 50 MG TABS 118468 ATENOLOL Inactive CETIRIZINE HCL 10 MG TABS 1 po qd as needed for allergies CETIRIZINE HCL 10 MG TABS 1228169 CETIRIZINE HCL Inactive LEVAQUIN 750 MG TABS 1 po qod x 5 doses LEVAQUIN 750 MG TABS 483892 LEVOFLOXACIN Inactive GLYBURIDE 5 MG TAB Take one by mouth daily GLYBURIDE 5 MG TAB 781790 GLYBURIDE Inactive PREDNISONE 5 MG TAB Take one po qod PREDNISONE 5 MG TAB 029011 PREDNISONE Inactive PREDNISONE 20 MG TAB 2 tabs daily for 5 days, then 1 daily for 5 days PREDNISONE 20 MG TAB 192564 PREDNISONE Inactive FLONASE 50 MCG/ACT SUSP 2 puffs in each nostril daily FLONASE 50 MCG/ACT SUSP FLUTICASONE PROPIONATE Inactive SYMBICORT 160-4.5 MCG/ACT AERO 2 puff BID SYMBICORT 160-4.5 MCG/ACT AERO BUDESONIDE-FORMOTEROL FUMARATE Inactive PREDNISONE 5 MG TABS 1 po qod PREDNISONE 5 MG TABS 821639 PREDNISONE Inactive PREDNISONE 20 MG TAB 1 tablet daily for airway inflammation 02/25 PREDNISONE 20 MG TAB 174417 PREDNISONE Inactive SULFASALAZINE 500 MG ORAL TBEC 2 tabs BID SULFASALAZINE 500 MG ORAL TBEC 280918 SULFASALAZINE Inactive LASIX 20 MG TAB 1 tablet by mouth daily x 2 days LASIX 20 MG TAB 506682 FUROSEMIDE Inactive AMOXICILLIN 500 MG CAPS 2 po BID x 10 days AMOXICILLIN 500 MG CAPS 904065 AMOXICILLIN Inactive GLYBURIDE 5 MG TAB Take one by mouth daily GLYBURIDE 5 MG TAB 737173 GLYBURIDE Inactive AZITHROMYCIN 250 MG TABS 2 po qd x 1 day, then 1 po qd x 4 days AZITHROMYCIN 250 MG TABS 8481557 AZITHROMYCIN Inactive PREDNISONE 20 MG TAB 2 tabs daily for 3 days, 1 tab daily for 3 days, 1/2 tab daily for 2 days PREDNISONE 20 MG TAB 437528 PREDNISONE Inactive PREDNISONE 20 MG TAB 2 tabs daily for 5 days, then 1 daily for 5 days, then 0.5 for 4 days PREDNISONE 20 MG TAB 181283 PREDNISONE Inactive AZITHROMYCIN 250 MG TABS 2 po qd x 1 day, then 1 po qd x 4 days AZITHROMYCIN 250 MG TABS 6870113 AZITHROMYCIN Inactive PREDNISONE 20 MG TAB 2 tabs daily for 3 days, 1 tab daily for 3 days, 1/2 tab daily for 2 days PREDNISONE 20 MG TAB 052334 PREDNISONE Inactive TRIAMCINOLONE ACETONIDE 0.1 % OINT Apply to affected areas TID for up to 2 weeks TRIAMCINOLONE ACETONIDE 0.1 % OINT 4127715 TRIAMCINOLONE ACETONIDE Inactive Immunizations Vaccine Administration Date [...] Panel - Chemistry sodium, serum 137 mmol/L 422-535 0948/06/06 carbon dioxide, venous blood 24.9 mmol/L 21.0-32.0 [...] 10*6/mm3 4.69-6.13 hemoglobin, blood 13.4 g/dL 13.5-17.5 leukocyte count, blood 7.4 10^3/MM^3 10*3/mm3 4.6-10.2 hematocrit, blood 41.1 % 41.0-53.0 mean corpuscular volume, RBC 95 fL 80-97 mean corpuscular hemoglobin, RBC 30.8 pg 27.0-31.2 mean corpuscular hemoglobin concentration, RBC 32.6 G/DL % 31.8- 35.4 red blood cell distribution width 15.5 % 11.6-14.8 platelet count 210 10^3/MM^3 10*3/mm3 142-424 Lab Report: CBC, Comp. Metabolic Panel - Chemistry sodium, serum 139 mmol/L 146-150 1790/03/17 carbon dioxide, venous blood 29.0 mmol/L 21.0-32.0 [...] mean corpuscular hemoglobin, RBC 29.9 pg 27.0-31.2 leukocyte count, blood 10.9 10^3/MM^3 10*3/mm3 4.6-10.2 mean corpuscular hemoglobin concentration, RBC 32.5 G/DL [...] mg/dL 7-18 creatinine, serum 2.37 mg/dL 0.55-1.30 chloride, serum 103 mmol/L 98-107 potassium, serum 5.1 mmol/L 3.5-5.2 sodium, serum 137 mmol/L 515-579 9198/02/12 hemoglobin A1C, blood, as % of total hemoglobin 8.5 % 4.3-6.0 Lab Report: Uric Acid - Chemistry uric acid, serum 6.3 mg/dL 2.6-7.2 Encounters Code Encounter Date Provider Facility CPT-67795 Level 3 Est. Patient 09:18:25 CDT Simon Castillo MD [facility] CPT-40845 Level 4 Est. Patient 11:51:23 CDT Simon Castillo MD [facility] CPT-10297 Level 4 Est. Patient 14:32:04 CDT Neto Oshea DO [facility] CPT-15590 Level 3 Est. Patient 08:41:43 CDT Jimeli Salcidol [facility] CPT-36716 Level 3 Est. Patient 08:40:53 CDT Jillina Frazell [facility] CPT-85678 Level 3 Est. Patient 08:36:52 CDT Jillina Frazell [facility] CPT-66030 Level 3 Est. Patient 09:08:44 CDT Jilltriston Nashzell [facility] CPT-56750 Level 4 Est. Patient 09:17:32 HAIR COLORIST Simon Castillo MD [facility] CPT-94088 Level 3 Est. Patient 11:22:22 HAIR COLORIST Simon Castillo MD [facility] CPT-57462 Level 3 Est. Patient 09:02:14 CDT Simon Castillo MD [facility] CPT-62734 Level 4 Est. Patient 08:47:25 CDT Simon Castillo MD [facility] CPT-28684 Level 4 Est. Patient 10:17:25 CDT Simon Castillo MD [facility] CPT-89379 Level 4 Est. Patient 10:10:09 HAIR COLORIST Simon Castillo MD [facility] CPT-38795 Level 4 Est. Patient 11:48:19 CDT Simon Castillo MD [facility] CPT-37390 Level 4 Est. Patient 08:59:29 CDT Simon Castillo MD [facility] CPT-00698 Level 4 Est. Patient 10:52:51 HAIR COLORIST Simon Castillo MD [facility] CPT-58160 Level 4 Est. Patient 11:50:30 CDT Simon Castillo MD [facility] CPT-42388 Level 4 Est. Patient 09:54:46 CDT Simon Castillo MD [facility] CPT-40325 Level 3 Est. Patient 11:10:14 CDT Simon Castillo MD [facility] CPT-40656 Level 4 Est. Patient 09:44:02 CDT Simon Castillo MD [facility] CPT-42435 Level 3 Est. Patient 09:27:48 CDT Simon Castillo MD [facility] CPT-14862 Level 3 Est. Patient 09:58:06 HAIR COLORIST Simon Castillo MD [facility] CPT-96973 Level 3 Est. Patient 09:51:35 CDT Simon Castillo MD [facility] Procedures Code Procedure Name Date Entry Date Standard Description CPT-40147 First Vx - Ix admin for Medicare patients 17:33:39 CDT CPT-41124 Fluzone High-Dose Intramuscular Suspension 17:33:39 CDT CPT-G0438 Initial Annual Wellness Exam 08:57:30 CDT CPT-65554 Chest 2V Frontal and Lat - XRAY USE ONLY 09:00:14 CDT CPT-35079 Venipuncture Draw Fee 13:33:02 CDT CPT-31463 Bone Density 09:37:49 HAIR COLORIST CPT-79783 Fluzone High Dose 17:20:42 CDT CPT-06116 Prevnar 13 17:20:42 CDT CPT-69518 Administration 2+ single or combination vaccines inc oral 2015/10/ 15 17:20:42 CDT CPT-57052 Administration single or combination vaccine inc oral 17 :20:42 CDT CPT-82951 Hand comp min 3V 09:24:38 CDT CPT-49675 Venipuncture Draw Fee 08:07:29 HAIR COLORIST CPT-17891 Venipuncture Draw Fee 09:02:51 HAIR COLORIST CPT-77024 Venipuncture Draw Fee 12:45:08 HAIR COLORIST CPT-19203 Venipuncture Draw Fee 09:25:31 CDT CPT-G0008 Administration of Influenza Virus Vaccine 14:41:29 CDT CPT-73176 Fluzone High-Dose Intramuscular Suspension 14:41:29 CDT CPT-Cryo Cryotherapy 11:48:20 CDT CPT-29998 EKG Trac and Interp 09:21:58 CDT CPT-23107 Chest 2V Frontal and Lat 09:21:58 CDT CPT-Cryo Cryotherapy 10:54:51 HAIR COLORIST CPT-30830 Administration 2+ single or combination vaccines inc oral 10:42:19 CDT CPT-85743 Administration single or combination vaccine inc oral 10 :42:19 CDT CPT-70559 Pneumovax 10:42:19 CDT CPT-99913 Influenza High Dose age 65+ 10:42:19 CDT CPT-30329 Administration single or combination vaccine inc oral 13 :18:54 CDT CPT-70616 Influenza High Dose age 65+ 13:18:54 CDT CPT-56024 Venipuncture Draw Fee 11:53:16 CDT CPT-94251 LS spine comp w obliq 11:03:13 CDT CPT-Cryo Cryotherapy 08:27:16 HAIR COLORIST CPT-64146 Administration single or combination vaccine inc oral 10 :56:34 CDT CPT-62993 Influenza High Dose age 65+ 10:56:34 CDT
--- OUTSIDE RECORDS SUMMARY | 2018-03-31 18:56 | XMS REPORT | Clinical Summary ---
Author Author Admin, RAFFI Organization [facility] Address Unknown Phone Unavailable Allergies, Adverse Reactions, Alerts Allergy Name Reaction Description Start Date Severity Status Provider No Known Allergies [facility] Conditions or Problems Problem Name Problem [...] Castillo MD Cough Osteoarthritis 715.90 Active Simon Catsillo MD Osteoarthrosis, unspecified whether generalized or localized, [...] puffs in each nostril daily FLUTICASONE PROPIONATE 46113322616 Active Simon Castillo MD Active CLOTRIMAZOLE 1 % EXT CREA Apply to affected area of feet twice daily PRN Rash CLOTRIMAZOLE 37816468838 Active Simon Castillo MD Active SYMBICORT 160-4.5 MCG/ACT AERO 2 puff BID BUDESONIDE- FORMOTEROL FUMARATE 13686213791 Active Simon Castillo MD Active PREDNISONE 20 MG TAB 2 tabs daily for 3 days, 1 tab daily for 3 days, 1/2 tab daily for 2 days PREDNISONE 43522570920 No Longer Active Simon Castillo MD Active AZITHROMYCIN 250 MG TABS 2 po qd x 1 day, then 1 po qd x 4 days AZITHROMYCIN 58440279790 No Longer Active Simon Castillo MD Active LISINOPRIL 10 MG TABS 1 tablet by mouth daily LISINOPRIL 32043161434 Active Simon Castillo MD Active GLIMEPIRIDE 1 MG TABS 1 po q a.m. GLIMEPIRIDE 06750315006 Active Simon Castillo MD Active CARVEDILOL 6.25 MG TABS 1 po BID CARVEDILOL 08693530923 Active Simon Castillo MD Active LISINOPRIL-HYDROCHLOROTHIAZIDE 20-12.5 MG TABS 1/2 tab by mouth daily LISINOPRIL-HYDROCHLOROTHIAZIDE 98780062082 No Longer Active Simon Castillo MD Active PREDNISONE 5 MG TABS 1 po qod PREDNISONE 41753974772 Active Simon Castillo MD Active TRAMADOL HCL 50 MG TABS 1-2 tablets every 6 hours as needed for pain TRAMADOL HCL 52734347394 Active Simon Castillo MD Active PREDNISONE 5 MG TAB Take one po qod PREDNISONE 18015893013 No Longer Active Simon Castillo MD Active GLYBURIDE 5 MG TAB Take one by mouth daily GLYBURIDE 98822565068 No Longer Active Simon Castillo MD Active LEVAQUIN 750 MG TABS 1 po qod x 5 doses LEVOFLOXACIN 46594926515 No Longer Active Simon Castillo MD Active CETIRIZINE HCL 10 MG TABS 1 po qd as needed for allergies CETIRIZINE HCL 51038576362 No Longer Active Simon Castillo MD Active FISH OIL 1000 MG CPDR 1 pill by mouth twice daily for cholesterol OMEGA -3 FATTY ACIDS 27788673980 Active Simon Castillo MD Active BILBERRY CAPS 1 tab daily BILBERRY (VACCINIUM MYRTILLUS) CAPS 52198339802 Active Simon Castillo MD Active ATENOLOL 50 MG TABS Take one by mouth daily ATENOLOL 32379618287 No Longer Active Simon Castillo MD Active FLONASE 50 MCG/ACT SUSP 2 puffs in each nostril daily FLUTICASONE PROPIONATE 29380545513 No Longer Active Simon Castillo MD Active GLYBURIDE 5 MG TAB Take one by mouth daily GLYBURIDE 61025832638 No Longer Active Simon Castillo MD Active SYMBICORT 80-4.5 MCG/ACT AERO 2 puffs twice a day BUDESONIDE-FORMOTEROL FUMARATE 45482161484 No Longer Active Simon Castillo MD Active PREDNISONE 20 MG TAB 2 tabs daily for 4 days, 1 tab daily for 4 days, 1/2 tab daily for 4 days PREDNISONE 05210270392 No Longer Active Simon Castillo MD Active AMOXICILLIN 500 MG CAPS 2 po BID x 10 days AMOXICILLIN 27056723891 No Longer Active Simon Castillo MD Active METFORMIN HCL 1000 MG TABS 1 by mounth twice a day METFORMIN HCL 02481211580 No Longer Active Simon Castillo MD Active LUTEIN-ZEAXANTHIN 6-1 MG TABS Take 2 by mouth daily LUTEIN-ZEAXANTHIN 41635021004 Active Simon Castillo MD Active IBUPROFEN 800 MG TABS Take 1 tab every 6 hrs prn IBUPROFEN 33333411438 No Longer Active Simon Castillo MD Active GLYBURIDE 2.5 MG TABS Take one by mouth daily GLYBURIDE 22352030873 No Longer Active Simon Castillo MD Active LANCETS MISC 2 qd LANCETS 56700959726 Active Pamela Conde Active ACACIA CONTOUR TEST STRP Use with testing twice daily GLUCOSE BLOOD 26738601818 Active Pamela Conde Active ACACIA ASPIRIN 325 MG TABS Take one by mouth daily ASPIRIN 14312684499 Active Pamela Conde Active GLYBURIDE 2.5 MG TABS Take one by mouth daily GLYBURIDE 2.5 MG TABS 453958 GLYBURIDE Inactive PREDNISONE 20 MG TAB 2 tabs daily for 4 days, 1 tab daily for 4 days, 1/2 tab daily for 4 days PREDNISONE 20 MG TAB 122212 PREDNISONE Inactive SYMBICORT 80-4.5 MCG/ACT AERO 2 puffs twice a day SYMBICORT 80-4.5 MCG/ACT AERO BUDESONIDE-FORMOTEROL FUMARATE Inactive FLONASE 50 MCG/ACT SUSP 2 puffs in each nostril daily FLONASE 50 MCG/ACT SUSP 575100 FLUTICASONE PROPIONATE Inactive ATENOLOL 50 MG TABS Take one by mouth daily ATENOLOL 50 MG TABS 907827 ATENOLOL Inactive CETIRIZINE HCL 10 MG TABS 1 po qd as needed for allergies CETIRIZINE HCL 10 MG TABS 4476073 CETIRIZINE HCL Inactive LEVAQUIN 750 MG TABS 1 po qod x 5 doses LEVAQUIN 750 MG TABS 019243 LEVOFLOXACIN Inactive GLYBURIDE 5 MG TAB Take one by mouth daily GLYBURIDE 5 MG TAB 010360 GLYBURIDE Inactive PREDNISONE 5 MG TAB Take one po qod PREDNISONE 5 MG TAB 330675 PREDNISONE Inactive AMOXICILLIN 500 MG CAPS 2 po BID x 10 days AMOXICILLIN 500 MG CAPS 517210 AMOXICILLIN Inactive GLYBURIDE 5 MG TAB Take one by mouth daily GLYBURIDE 5 MG TAB 728244 GLYBURIDE Inactive AZITHROMYCIN 250 MG TABS 2 po qd x 1 day, then 1 po qd x 4 days AZITHROMYCIN 250 MG TABS 4163992 AZITHROMYCIN Inactive PREDNISONE 20 MG TAB 2 tabs daily for 3 days, 1 tab daily for 3 days, 1/2 tab daily for 2 days PREDNISONE 20 MG TAB 812824 PREDNISONE Inactive Immunizations Vaccine Administration Date Value [...] Panel - Chemistry sodium, serum 137 mmol/L 616-748 8484/10/14 potassium, serum 5.6 mmol/L 3.5-5.2 chloride, serum 103 mmol/L 98-107 carbon dioxide, venous blood 24.9 mmol/L 21.0-32.0 blood glucose 200 mg/dL 65-110 urea nitrogen, blood 43 mg/dL 7-18 creatinine, serum 2.60 mg/dL 0.60-1.30 calcium, serum 9.1 mg/dL 8.5-10.1 sodium, serum 139 mmol/L 987-749 9937/11/13 potassium, serum 5.8 mmol/L 3.5-5.2 chloride, serum 105 mmol/L 98-107 carbon dioxide, venous blood 22.2 mmol/L 21.0-32.0 blood glucose 156 mg/dL 65-110 urea nitrogen, blood 49 mg/dL 7-18 creatinine, serum 2.30 mg/dL 0.60-1.30 calcium, serum 9.2 mg/dL 8.5-10.1 sodium, serum 140 mmol/L 804-442 4174/12/12 potassium, serum 5.5 mmol/L 3.5-5.2 chloride, serum 104 mmol/L 98-107 carbon dioxide, venous blood 24.8 mmol/L 21.0-32.0 blood glucose 174 mg/dL 65-110 urea nitrogen, blood 40 mg/dL 7-18 creatinine, serum 2.50 mg/dL 0.60-1.30 calcium, serum 8.9 mg/dL 8.5-10.1 Lab Report: CBC, Renal Panel - Hematology leukocyte count, blood 9.7 10^3/MM^3 10*3/mm3 4.6-10.2 erythrocyte (RBC) count 4.79 10^6/MM^3 10*6/mm3 4.69-6.13 hemoglobin, blood 14.1 g/dL 13.5-17.5 hematocrit, blood 43.0 % 41.0-53.0 mean corpuscular volume, RBC 90 fL 80-97 mean corpuscular hemoglobin, RBC 29.5 pg 27.0-31.2 mean corpuscular hemoglobin concentration, RBC 32.8 G/DL % 31.8- 35.4 red blood cell distribution width 15.1 % 11.6-14.8 platelet count 241 10^3/MM^3 10*3/mm3 333-115 2388/12/12 leukocyte count, blood 11.5 10^3/MM^3 10*3/mm3 4.6-10.2 erythrocyte (RBC) count 4.82 10^6/MM^3 10*6/mm3 4.69-6.13 hemoglobin, blood 14.5 g/dL 13.5-17.5 hematocrit, blood 43.6 % 41.0-53.0 mean corpuscular volume, RBC 90 fL 80-97 mean corpuscular hemoglobin, RBC 30.0 pg 27.0-31.2 mean corpuscular hemoglobin concentration, RBC 33.2 G/DL % 31.8- 35.4 red blood cell distribution width 14.6 % 11.6-14.8 platelet count 217 10^3/MM^3 10*3/mm3 663-185 2773/10/14 leukocyte count, blood 9.2 10^3/MM^3 10*3/mm3 4.6-10.2 [...] HGBA1C - Chemistry sodium, serum 139 mmol/L 497-854 0243/07/09 potassium, serum 5.4 mmol/L 3.5-5.2 chloride, serum [...] 6.9 % 4.3-6.0 sodium, serum 137 mmol/L 745-924 2050/08/21 potassium, serum 5.3 mmol/L 3.5-5.2 chloride, serum 104 mmol/L 98-107 carbon dioxide, venous blood 20.4 mmol/L 21.0-32.0 blood glucose 173 mg/dL 65-110 calcium, serum 8.7 mg/dL 8.5-10.1 urea nitrogen, blood 46 mg/dL 7-18 creatinine, serum 2.60 mg/dL 0.60-1.30 Lab Report: Prostatic Specific Ag - Chemistry prostate specific antigen 1.52 ng/mL 0.00-4.00 Lab Report: Renal Panel - Chemistry sodium, serum 139 mmol/L 260-280 0274/10/21 potassium, serum 4.7 mmol/L 3.5-5.2 chloride, serum 104 mmol/L 98-107 carbon dioxide, venous blood 26.1 mmol/L 21.0-32.0 blood glucose 148 mg/dL 65-110 urea nitrogen, blood 38 mg/dL 7-18 creatinine, serum 2.60 mg/dL 0.60-1.30 calcium, serum 8.6 mg/dL 8.5-10.1 sodium, serum 140 mmol/L 763-273 3824/11/17 potassium, serum 5.0 mmol/L 3.5-5.2 chloride, serum 104 mmol/L 98-107 carbon dioxide, venous blood 24.8 mmol/L 21.0-32.0 blood glucose 146 mg/dL 65-110 urea nitrogen, blood 46 mg/dL 7-18 creatinine, serum 2.60 mg/dL 0.60-1.30 calcium, serum 9.2 mg/dL 8.5-10.1 Encounters Code Encounter Date Provider Facility CPT-79506 Level 4 Est. Patient 08:47:25 CDT Simon Castillo MD [facility] CPT-30419 Level 4 Est. Patient 10:17:25 CDT Simon Castillo MD [facility] CPT-23160 Level 4 Est. Patient 10:10:09 ASSESSMENT EXPERT Simon Castillo MD [facility] CPT-67307 Level 4 Est. Patient 11:48:19 CDT Simon Castillo MD [facility] CPT-71915 Level 4 Est. Patient 08:59:29 CDT Simon Castillo MD [facility] CPT-10317 Level 4 Est. Patient 10:52:51 ASSESSMENT EXPERT Simon Castillo MD [facility] CPT-50911 Level 4 Est. Patient 11:50:30 CDT Simon Castillo MD [facility] CPT-91208 Level 4 Est. Patient 09:54:46 CDT Simon Castillo MD [facility] CPT-70525 Level 3 Est. Patient 11:10:14 CDT Simon Castillo MD [facility] CPT-25407 Level 4 Est. Patient 09:44:02 CDT Simon Castillo MD [facility] CPT-81827 Level 3 Est. Patient 09:27:48 CDT Simon Castillo MD [facility] CPT-54605 Level 3 Est. Patient 09:58:06 ASSESSMENT EXPERT Simon Castillo MD [facility] CPT-97440 Level 3 Est. Patient 09:51:35 CDT Simon Castillo MD [facility] Procedures Code Procedure Name Date Entry Date Standard Description CPT-56871 Venipuncture Draw Fee 08:07:29 ASSESSMENT EXPERT CPT-88880 Venipuncture Draw Fee 09:02:51 ASSESSMENT EXPERT CPT-11340 Venipuncture Draw Fee 12:45:08 ASSESSMENT EXPERT CPT-62928 Venipuncture Draw Fee 09:25:31 CDT CPT-G0008 Administration of Influenza Virus Vaccine 14:41:29 CDT CPT-85757 Fluzone High-Dose Intramuscular Suspension 14:41:29 CDT CPT-Cryo Cryotherapy 11:48:20 CDT CPT-74509 EKG Trac and Interp 09:21:58 CDT CPT-36832 Chest 2V Frontal and Lat 09:21:58 CDT CPT-Cryo Cryotherapy 10:54:51 ASSESSMENT EXPERT CPT-27633 Administration 2+ single or combination vaccines inc oral 10:42:19 CDT CPT-65453 Administration single or combination vaccine inc oral 10 :42:19 CDT CPT-54889 Pneumovax 10:42:19 CDT CPT-86340 Influenza High Dose age 65+ 10:42:19 CDT CPT-39639 Administration single or combination vaccine inc oral 13 :18:54 CDT CPT-33427 Influenza High Dose age 65+ 13:18:54 CDT CPT-12109 Venipuncture Draw Fee 11:53:16 CDT CPT-01385 LS spine comp w obliq 11:03:13 CDT CPT-Cryo Cryotherapy 08:27:16 ASSESSMENT EXPERT CPT-18428 Administration single or combination vaccine inc oral 10 :56:34 CDT CPT-16410 Influenza High Dose age 65+ 10:56:34 CDT
--- OUTSIDE RECORDS SUMMARY | 2018-03-31 18:58 | XMS REPORT | Clinical Summary ---
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 V58.65 Resolved Simon Castillo MD Long-term [...] MG ORAL TABLET 1 po qd FUROSEMIDE 68292101428 Active Simon Castillo MD Active BACTRIM DS 800-160 MG ORAL TABLET 1 po BID x 7 days SULFAMETHOXAZOLE-TRIMETHOPRIM 74102712055 Active Simon Castillo MD Active AZITHROMYCIN 250 MG ORAL TABLET 2 po qd x 1, then 1 po qd x 4 AZITHROMYCIN 82839180518 No Longer Active Simon Castillo MD Active PROMETHAZINE-CODEINE 6.25-10 MG/5ML ORAL SYRUP 5ml po qHS PRN Cough PROMETHAZINE-CODEINE 02940211643 No Longer Active Simon Castillo MD Active SINGULAIR 10 MG ORAL TABLET 1 po qd PRN Asthma/Allergies MONTELUKAST SODIUM 17089136573 Active Simon Castillo MD Active PREDNISONE 20 MG ORAL TABLET 2 po qd x 5 days PREDNISONE 38399869130 No Longer Active Simon Castillo MD Active VIAGRA 100 MG ORAL TABLET 0.5 to 1 po qd PRN Erectile dysfunction SILDENAFIL CITRATE 13313072486 Active Simon Castillo MD Active LUTEIN-ZEAXANTHIN 6-1 MG ORAL TABLET 2 po qd LUTEIN- ZEAXANTHIN 52156433693 Active Simon Castillo MD Active BILBERRY CAPSULE 1 po qd BILBERRY (VACCINIUM MYRTILLUS) CAPS 65737202599 Active Simon Castillo MD Active TRAMADOL HCL 50 MG ORAL TABLET 1-2 tablets every 6 hours as needed for pain TRAMADOL HCL 91397446590 No Longer Active Simon Castillo MD Active HYDROCODONE-ACETAMINOPHEN 5-325 MG ORAL TABLET 1 tab by mouth 8 hours as needed for pain HYDROCODONE-ACETAMINOPHEN 81132885292 No Longer Active Simon Castillo MD Active BUMETANIDE 0.5 MG ORAL TABLET 1 po qd BUMETANIDE 31064963558 Active Simon Castillo MD Active AUGMENTIN 875-125 MG ORAL TABLET 1 po BID x 10 days AMOXICILLIN-POT CLAVULANATE 12685637401 No Longer Active Simon Castillo MD Active PIOGLITAZONE HCL 30 MG ORAL TABLET 1 po qd PIOGLITAZONE HCL 41739865172 Active Simon Castillo MD Active GLIMEPIRIDE 4 MG ORAL TABLET 1 po BID GLIMEPIRIDE 32336358985 Active Simon Castillo MD Active ASPIRIN EC 81 MG ORAL TABLET DELAYED RELEASE 1 po qd ASPIRIN 16867605957 Active Simon Castillo MD Active CLOTRIMAZOLE 1 % EXTERNAL CREAM Apply to affected area of feet twice daily PRN Rash CLOTRIMAZOLE 30563198640 No Longer Active Simon Castillo MD Active PREDNISONE 5 MG ORAL TABLET 1 po BID PREDNISONE 12307632592 Active Dolly MCDERMOTT Active FISH OIL 1000 MG ORAL CAPSULE DELAYED RELEASE 1 po BID OMEGA- 3 FATTY ACIDS 21376094026 Active Simon Castillo MD Active LISINOPRIL 10 MG ORAL TABLET 1 p qd LISINOPRIL 04982710559 Active Simon Castillo MD Active CLARITIN 10 MG ORAL TABLET 1 tablet by mouth daily as needed for allergies LORATADINE 88985214961 No Longer Active Simon Castillo MD Active TRIAMCINOLONE ACETONIDE 0.1 % EXTERNAL OINTMENT Apply to affected areas TID for up to 2 weeks TRIAMCINOLONE ACETONIDE 32141353368 No Longer Active Simon Castillo MD Active LASIX 20 MG ORAL TABLET 1 tablet by mouth daily x 2 days FUROSEMIDE 33259780183 No Longer Active Simon Castillo MD Active SULFASALAZINE 500 MG ORAL TABLET DELAYED RELEASE 2 tabs BID 02/26 SULFASALAZINE 46856421309 No Longer Active Neto Oshea DO Active PREDNISONE 20 MG ORAL TABLET 2 tabs daily for 3 days, 1 tab daily for 3 days, 1/2 tab daily for 2 days PREDNISONE 83012492885 No Longer Active Jillina Fratico HEMPHILL Active PREDNISONE 20 MG ORAL TABLET 1 tablet daily for airway inflammation PREDNISONE 91336178083 No Longer Active Jillina Frazell PILE DRIVING SETTER Active AZITHROMYCIN 250 MG ORAL TABLET 2 po qd x 1 day, then 1 po qd x 4 days 01/28 AZITHROMYCIN 83557285369 No Longer Active Jillina Fraamayal PILE DRIVING SETTER Active TRAMADOL HCL 50 MG ORAL TABLET 1 po q6hr PRN Pain TRAMADOL HCL 55511870662 No Longer Active Simon Castillo MD Active PREDNISONE 5 MG ORAL TABLET 1 po qod PREDNISONE 73585128822 No Longer Active Simon Castillo MD Active SYMBICORT 160-4.5 MCG/ACT INHALATION AEROSOL 2 puff BID BUDESONIDE-FORMOTEROL FUMARATE 83026947219 No Longer Active Simon Castillo MD Active FLONASE 50 MCG/ACT NASAL SUSPENSION 2 puffs in each nostril daily FLUTICASONE PROPIONATE 54496790495 No Longer Active Simon Castillo MD Active PREDNISONE 20 MG ORAL TABLET 2 tabs daily for 5 days, then 1 daily for 5 days PREDNISONE 26431367965 No Longer Active Simon Castillo MD Active PREDNISONE 20 MG ORAL TABLET 2 tabs daily for 5 days, then 1 daily for 5 days , then 0.5 for 4 days PREDNISONE 25246742537 No Longer Active Simon Castillo MD Active PREDNISONE 20 MG ORAL TABLET 2 tabs daily for 3 days, 1 tab daily for 3 days, 1/2 tab daily for 2 days PREDNISONE 82377084267 No Longer Active Simon Castillo MD Active AZITHROMYCIN 250 MG ORAL TABLET 2 po qd x 1 day, then 1 po qd x 4 days 03/16 AZITHROMYCIN 36036409286 No Longer Active Simon Castillo MD Active CARVEDILOL 6.25 MG ORAL TABLET 1 po BID CARVEDILOL 74921269861 Active Simon Castillo MD Active LISINOPRIL-HYDROCHLOROTHIAZIDE 20-12.5 MG ORAL TABLET 1/2 tab by mouth daily LISINOPRIL-HYDROCHLOROTHIAZIDE 10428707660 No Longer Active Simon Castillo MD Active PREDNISONE 5 MG ORAL TABLET Take one po qod PREDNISONE 62902096558 No Longer Active Simon Castillo MD Active GLYBURIDE 5 MG ORAL TABLET Take one by mouth daily GLYBURIDE 40622257512 No Longer Active Simon Castillo MD Active LEVAQUIN 750 MG ORAL TABLET 1 po qod x 5 doses LEVOFLOXACIN 47276013834 No Longer Active Simon Castillo MD Active CETIRIZINE HCL 10 MG ORAL TABLET 1 po qd as needed for allergies CETIRIZINE HCL 21571712615 No Longer Active Simon Castillo MD Active ATENOLOL 50 MG ORAL TABLET Take one by mouth daily ATENOLOL 17302658326 No Longer Active Simon Castillo MD Active FLONASE 50 MCG/ACT NASAL SUSPENSION 2 puffs in each nostril daily FLUTICASONE PROPIONATE 34891911892 No Longer Active Simon Castillo MD Active GLYBURIDE 5 MG ORAL TABLET Take one by mouth daily GLYBURIDE 01990250348 No Longer Active Simon Castillo MD Active SYMBICORT 80-4.5 MCG/ACT INHALATION AEROSOL 2 puffs twice a day BUDESONIDE-FORMOTEROL FUMARATE 06807317453 No Longer Active Simon Castillo MD Active PREDNISONE 20 MG ORAL TABLET 2 tabs daily for 4 days, 1 tab daily for 4 days, 1/2 tab daily for 4 days PREDNISONE 80016874507 No Longer Active Simon Castillo MD Active AMOXICILLIN 500 MG ORAL CAPSULE 2 po BID x 10 days AMOXICILLIN 14386045247 No Longer Active Simon Castillo MD Active METFORMIN HCL 1000 MG ORAL TABLET 1 by mounth twice a day METFORMIN HCL 71880479088 No Longer Active Simon Castillo MD Active IBUPROFEN 800 MG ORAL TABLET Take 1 tab every 6 hrs prn IBUPROFEN 23934537687 No Longer Active Simon Castillo MD Active GLYBURIDE 2.5 MG ORAL TABLET Take one by mouth daily GLYBURIDE 59548117238 No Longer Active Simon Castillo MD Active LANCETS 2 qd LANCETS 19660596438 Active Pamela Conde Active ACACIA CONTOUR TEST IN VITRO STRIP Use with testing twice daily GLUCOSE BLOOD 15347191371 Active Simon Castillo MD Active GLYBURIDE 2.5 MG ORAL TABLET Take one by mouth daily GLYBURIDE 2.5 MG ORAL TABLET 154555 GLYBURIDE Inactive PREDNISONE 20 MG ORAL TABLET 2 tabs daily for 4 days, 1 tab daily for 4 days, 1/2 tab daily for 4 days PREDNISONE 20 MG ORAL TABLET 132388 PREDNISONE Inactive SYMBICORT 80-4.5 MCG/ACT INHALATION AEROSOL 2 puffs twice a day SYMBICORT 80-4.5 MCG/ACT INHALATION AEROSOL BUDESONIDE- FORMOTEROL FUMARATE Inactive FLONASE 50 MCG/ACT NASAL SUSPENSION 2 puffs in each nostril daily FLONASE 50 MCG/ACT NASAL SUSPENSION 1332495 FLUTICASONE PROPIONATE Inactive ATENOLOL 50 MG ORAL TABLET Take one by mouth daily ATENOLOL 50 MG ORAL TABLET 370268 ATENOLOL Inactive CETIRIZINE HCL 10 MG ORAL TABLET 1 po qd as needed for allergies CETIRIZINE HCL 10 MG ORAL TABLET 3920013 CETIRIZINE HCL Inactive LEVAQUIN 750 MG ORAL TABLET 1 po qod x 5 doses LEVAQUIN 750 MG ORAL TABLET 973656 LEVOFLOXACIN Inactive GLYBURIDE 5 MG ORAL TABLET Take one by mouth daily GLYBURIDE 5 MG ORAL TABLET 675030 GLYBURIDE Inactive PREDNISONE 5 MG ORAL TABLET Take one po qod PREDNISONE 5 MG ORAL TABLET 602059 PREDNISONE Inactive PREDNISONE 20 MG ORAL TABLET 2 tabs daily for 5 days, then 1 daily for 5 days PREDNISONE 20 MG ORAL TABLET 629666 PREDNISONE Inactive FLONASE 50 MCG/ACT NASAL SUSPENSION 2 puffs in each nostril daily FLONASE 50 MCG/ACT NASAL SUSPENSION 2962254 FLUTICASONE PROPIONATE Inactive SYMBICORT 160-4.5 MCG/ACT INHALATION AEROSOL 2 puff BID SYMBICORT 160-4.5 MCG/ACT INHALATION AEROSOL BUDESONIDE-FORMOTEROL FUMARATE Inactive PREDNISONE 5 MG ORAL TABLET 1 po qod PREDNISONE 5 MG ORAL TABLET 030160 PREDNISONE Inactive PREDNISONE 20 MG ORAL TABLET 1 tablet daily for airway inflammation PREDNISONE 20 MG ORAL TABLET 707273 PREDNISONE Inactive SULFASALAZINE 500 MG ORAL TABLET DELAYED RELEASE 2 tabs BID 02/26 SULFASALAZINE 500 MG ORAL TABLET DELAYED RELEASE 151885 SULFASALAZINE Inactive LASIX 20 MG ORAL TABLET 1 tablet by mouth daily x 2 days LASIX 20 MG ORAL TABLET 525450 FUROSEMIDE Inactive CLARITIN 10 MG ORAL TABLET 1 tablet by mouth daily as needed for allergies CLARITIN 10 MG ORAL TABLET 071871 LORATADINE Inactive CLOTRIMAZOLE 1 % EXTERNAL CREAM Apply to affected area of feet twice daily PRN Rash CLOTRIMAZOLE 1 % EXTERNAL CREAM 240670 CLOTRIMAZOLE Inactive HYDROCODONE-ACETAMINOPHEN 5-325 MG ORAL TABLET 1 tab by mouth 8 hours as needed for pain HYDROCODONE-ACETAMINOPHEN 5-325 MG ORAL TABLET 097748 HYDROCODONE-ACETAMINOPHEN Inactive TRAMADOL HCL 50 MG ORAL TABLET 1-2 tablets every 6 hours as needed for pain TRAMADOL HCL 50 MG ORAL TABLET 085043 TRAMADOL HCL Inactive PROMETHAZINE-CODEINE 6.25-10 MG/5ML ORAL SYRUP 5ml po qHS PRN Cough PROMETHAZINE-CODEINE 6.25-10 MG/5ML ORAL SYRUP 689095 PROMETHAZINE-CODEINE Inactive AZITHROMYCIN 250 MG ORAL TABLET 2 po qd x 1, then 1 po qd x 4 AZITHROMYCIN 250 MG ORAL TABLET 808599 AZITHROMYCIN Inactive AMOXICILLIN 500 MG ORAL CAPSULE 2 po BID x 10 days AMOXICILLIN 500 MG ORAL CAPSULE 461139 AMOXICILLIN Inactive GLYBURIDE 5 MG ORAL TABLET Take one by mouth daily GLYBURIDE 5 MG ORAL TABLET 249958 GLYBURIDE Inactive AZITHROMYCIN 250 MG ORAL TABLET 2 po qd x 1 day, then 1 po qd x 4 days 03/16 AZITHROMYCIN 250 MG ORAL TABLET 117778 AZITHROMYCIN Inactive PREDNISONE 20 MG ORAL TABLET 2 tabs daily for 3 days, 1 tab daily for 3 days, 1/2 tab daily for 2 days PREDNISONE 20 MG ORAL TABLET 987424 PREDNISONE Inactive PREDNISONE 20 MG ORAL TABLET 2 tabs daily for 5 days, then 1 daily for 5 days , then 0.5 for 4 days PREDNISONE 20 MG ORAL TABLET 437356 PREDNISONE Inactive AZITHROMYCIN 250 MG ORAL TABLET 2 po qd x 1 day, then 1 po qd x 4 days 01/28 AZITHROMYCIN 250 MG ORAL TABLET 801331 AZITHROMYCIN Inactive PREDNISONE 20 MG ORAL TABLET 2 tabs daily for 3 days, 1 tab daily for 3 days, 1/2 tab daily for 2 days PREDNISONE 20 MG ORAL TABLET 954412 PREDNISONE Inactive TRIAMCINOLONE ACETONIDE 0.1 % EXTERNAL OINTMENT Apply to affected areas TID for up to 2 weeks TRIAMCINOLONE ACETONIDE 0.1 % EXTERNAL OINTMENT 2775520 TRIAMCINOLONE ACETONIDE Inactive AUGMENTIN 875-125 MG ORAL TABLET 1 po BID x 10 days AUGMENTIN 875-125 MG ORAL TABLET 089845 AMOXICILLIN-POT CLAVULANATE Inactive PREDNISONE 20 MG ORAL TABLET 2 po qd x 5 days PREDNISONE 20 MG ORAL TABLET 945135 PREDNISONE Inactive Immunizations Vaccine Administration Date Value [...] Peptide - Chemistry sodium, serum 142 mmol/L 887-903 8654/07/18 potassium, serum 5.0 mmol/L 3.5-5.2 chloride, serum [...] Panel - Chemistry sodium, serum 138 mmol/L 973-317 0981/06/04 carbon dioxide, venous blood 23.4 mmol/L 21.0-32.0 [...] Rate - Chemistry sodium, serum 142 mmol/L 623-948 6854/02/27 carbon dioxide, venous blood 26.2 mmol/L 21.0-32.0 [...] Panel - Chemistry sodium, serum 140 mmol/L 327-959 7730/07/13 carbon dioxide, venous blood 23.7 mmol/L 21.0-32.0 [...] dipstick Negative Negative sodium, serum 142 mmol/L 776-370 1327/01/08 carbon dioxide, venous blood 23.9 mmol/L 21.0-32.0 [...] Negative;Positive Encounters Code Encounter Date Provider Facility CPT-50615 Level 4 Est. Patient 11:32:07 CDT Simon Castillo [facility] CPT-46142 Level 3 Est. Patient 11:36:15 CDT Simon Castillo [facility] CPT-38028 Level 4 Est. Patient 14:06:23 METALLURGIST HELPER Simon Castillo MD [facility] CPT-24386 Level 3 Est. Patient 12:04:38 METALLURGIST HELPER [facility] CPT-77200 Level 3 Est. Patient 11:57:09 METALLURGIST HELPER [facility] CPT-17080 Level 3 Est. Patient 11:48:57 METALLURGIST HELPER [facility] CPT-23230 Level 4 Est. Patient 09:54:36 CDT Simon Castillo MD [facility] CPT-96083 Level 4 Est. Patient 08:48:38 CDT Simon Castillo MD [facility] CPT-12712 Level 4 Est. Patient 09:54:08 CDT Simon Castillo MD [facility] CPT-84739 Level 4 Est. Patient 16:11:23 CDT Simon Castillo MD [facility] CPT-67423 Level 4 Est. Patient 09:29:28 METALLURGIST HELPER Simon Castillo MD [facility] CPT-80382 Level 3 Est. Patient 09:18:25 CDT Simon Castillo MD [facility] CPT-38956 Level 4 Est. Patient 11:51:23 CDT Simon Castillo MD [facility] CPT-45476 Level 4 Est. Patient 14:32:04 CDT Neto Oshea DO [facility] CPT-95386 Level 3 Est. Patient 08:41:43 CDT Jillina Nashzell [facility] CPT-05073 Level 3 Est. Patient 08:40:53 CDT Jillina Frazell [facility] CPT-80113 Level 3 Est. Patient 08:36:52 CDT Jillina Frazell [facility] CPT-82119 Level 3 Est. Patient 09:08:44 CDT Jillina Nashzell [facility] CPT-93973 Level 4 Est. Patient 09:17:32 METALLURGIST HELPER Simon Castillo MD [facility] CPT-89357 Level 3 Est. Patient 11:22:22 METALLURGIST HELPER Simon Castillo MD [facility] CPT-41959 Level 3 Est. Patient 09:02:14 CDT Simon Castillo MD [facility] CPT-63560 Level 4 Est. Patient 08:47:25 CDT Simon Castillo MD [facility] CPT-73696 Level 4 Est. Patient 10:17:25 CDT Simon Castillo MD [facility] CPT-52270 Level 4 Est. Patient 10:10:09 METALLURGIST HELPER Simon Castillo MD [facility] CPT-31645 Level 4 Est. Patient 11:48:19 CDT Simon Castillo MD [facility] CPT-54662 Level 4 Est. Patient 08:59:29 CDT Simon Castillo MD [facility] CPT-89707 Level 4 Est. Patient 10:52:51 METALLURGIST HELPER Simon Castillo MD [facility] CPT-99761 Level 4 Est. Patient 11:50:30 CDT Simon Castillo MD [facility] CPT-94497 Level 4 Est. Patient 09:54:46 CDT Simon Castillo MD [facility] CPT-85693 Level 3 Est. Patient 11:10:14 CDT Simon Castillo MD [facility] CPT-88211 Level 4 Est. Patient 09:44:02 CDT Simon Castillo MD [facility] CPT-88740 Level 3 Est. Patient 09:27:48 CDT Simon Castillo MD [facility] CPT-23375 Level 3 Est. Patient 09:58:06 METALLURGIST HELPER Simon Castillo MD [facility] CPT-70931 Level 3 Est. Patient 09:51:35 CDT Simon Castillo MD [facility] Procedures Code Procedure Name Date Entry Date Standard Description CPT-66973 EKG Trac and Interp - XRAY USE ONLY 11:41:45 CDT 02/23 CPT-71341 Chest, 2 views 11:41:45 CDT CPT-42883 EKG Trac and Interp - XRAY USE ONLY 12:19:18 METALLURGIST HELPER 09/29 CPT-00906 Chest, 2 views 12:19:17 METALLURGIST HELPER CPT-Cryo Cryotherapy 09:54:37 CDT CPT-88442 First Vx - Ix admin for Medicare patients 09:13:10 CDT CPT-39236 Fluzone High-Dose Intramuscular Suspension 09:13:10 CDT CPT-G0439 Subsequent Annual Wellness Exam 09:41:17 CDT CPT-72183 Lipid - LAB USE ONLY 17:15:33 CDT CPT-31559 HGBA1C - LAB USE ONLY 17:15:33 CDT CPT-26284 CMP - LAB USE ONLY 17:15:33 CDT CPT-23047 Venipuncture Draw Fee 17:15:33 CDT CPT-[facility] Transitional Care Mgmt-High 11:01:28 METALLURGIST HELPER CPT-55288 First Vx - Ix admin for Medicare patients 17:33:39 CDT CPT-26592 Fluzone High-Dose Intramuscular Suspension 17:33:39 CDT CPT-G0438 Initial Annual Wellness Exam 08:57:30 CDT CPT-61919 Chest 2V Frontal and Lat - XRAY USE ONLY 09:00:14 CDT CPT-74565 Venipuncture Draw Fee 13:33:02 CDT CPT-59875 Bone Density 09:37:49 METALLURGIST HELPER CPT-73938 Fluzone High Dose 17:20:42 CDT CPT-64891 Prevnar 13 17:20:42 CDT CPT-82332 Administration 2+ single or combination vaccines inc oral 17:20:42 CDT CPT-06983 Administration single or combination vaccine inc oral 17 :20:42 CDT CPT-87445 Hand comp min 3V 09:24:38 CDT CPT-35026 Venipuncture Draw Fee 08:07:29 METALLURGIST HELPER CPT-68600 Venipuncture Draw Fee 09:02:51 METALLURGIST HELPER CPT-22441 Venipuncture Draw Fee 12:45:08 METALLURGIST HELPER CPT-54746 Venipuncture Draw Fee 09:25:31 CDT CPT-G0008 Administration of Influenza Virus Vaccine 14:41:29 CDT CPT-70842 Fluzone High-Dose Intramuscular Suspension 14:41:29 CDT CPT-Cryo Cryotherapy 11:48:20 CDT CPT-09775 EKG Trac and Interp 09:21:58 CDT CPT-86500 Chest 2V Frontal and Lat 09:21:58 CDT CPT-Cryo Cryotherapy 10:54:51 METALLURGIST HELPER CPT-18351 Administration 2+ single or combination vaccines inc oral 10:42:19 CDT CPT-03415 Administration single or combination vaccine inc oral 10 :42:19 CDT CPT-63079 Pneumovax 10:42:19 CDT CPT-10431 Influenza High Dose age 65+ 10:42:19 CDT CPT-09469 Administration single or combination vaccine inc oral 13 :18:54 CDT CPT-09759 Influenza High Dose age 65+ 13:18:54 CDT CPT-51893 Venipuncture Draw Fee 11:53:16 CDT CPT-14522 LS spine comp w obliq 11:03:13 CDT CPT-Cryo Cryotherapy 08:27:16 METALLURGIST HELPER CPT-18340 Administration single or combination vaccine inc oral 10 :56:34 CDT CPT-41430 Influenza High Dose age 65+ 10:56:34 CDT
[2018-03-31 19:00] VITALS: BP 137/67
--- OUTSIDE RECORDS SUMMARY | 2018-03-31 19:00 | XMS REPORT | Clinical Summary ---
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 Kerry [...] ICD-486 Kerry Castillo MD Sinusitis, acute ICD-461.9 Inactive [...] 1 po BID x 7 days SULFAMETHOXAZOLE-TRIMETHOPRIM 97559817328 Active Simon Castillo MD Active AZITHROMYCIN 250 MG ORAL TABLET 2 po qd x 1, then 1 po qd x 4 AZITHROMYCIN 91287071440 No Longer Active Simon Castillo MD Active PROMETHAZINE-CODEINE 6.25-10 MG/5ML ORAL SYRUP 5ml po qHS PRN Cough PROMETHAZINE-CODEINE 70721471045 No Longer Active Simon Castillo MD Active SINGULAIR 10 MG ORAL TABLET 1 po qd PRN Asthma/Allergies MONTELUKAST SODIUM 85734982925 Active Simon Castillo MD Active PREDNISONE 20 MG ORAL TABLET 2 po qd x 5 days PREDNISONE 64720221790 No Longer Active Simon Castillo MD Active VIAGRA 100 MG ORAL TABLET 0.5 to 1 po qd PRN Erectile dysfunction SILDENAFIL CITRATE 98529693399 Active Simon Castillo MD Active LUTEIN-ZEAXANTHIN 6-1 MG ORAL TABLET 2 po qd LUTEIN- ZEAXANTHIN 12170638560 Active Simon Castillo MD Active BILBERRY CAPSULE 1 po qd BILBERRY (VACCINIUM MYRTILLUS) CAPS 35183233149 Active Simon Castillo MD Active TRAMADOL HCL 50 MG ORAL TABLET 1-2 tablets every 6 hours as needed for pain TRAMADOL HCL 63561363835 No Longer Active Simon Castillo MD Active HYDROCODONE-ACETAMINOPHEN 5-325 MG ORAL TABLET 1 tab by mouth 8 hours as needed for pain HYDROCODONE-ACETAMINOPHEN 20985515603 No Longer Active Simon Castillo MD Active BUMETANIDE 0.5 MG ORAL TABLET 1 po qd BUMETANIDE 58879133870 Active Simon Castillo MD Active AUGMENTIN 875-125 MG ORAL TABLET 1 po BID x 10 days AMOXICILLIN-POT CLAVULANATE 13751641862 No Longer Active Simon Castillo MD Active PIOGLITAZONE HCL 30 MG ORAL TABLET 1 po qd PIOGLITAZONE HCL 09791108739 Active Simon Castillo MD Active GLIMEPIRIDE 4 MG ORAL TABLET 1 po BID GLIMEPIRIDE 92597210039 Active Simon Castillo MD Active ASPIRIN EC 81 MG ORAL TABLET DELAYED RELEASE 1 po qd ASPIRIN 69877604193 Active Simon Castillo MD Active CLOTRIMAZOLE 1 % EXTERNAL CREAM Apply to affected area of feet twice daily PRN Rash CLOTRIMAZOLE 03297830951 No Longer Active Simon Castillo MD Active PREDNISONE 5 MG ORAL TABLET 1 po BID PREDNISONE 55683053401 Active Dolly Wong [facility] Active FISH OIL 1000 MG ORAL CAPSULE DELAYED RELEASE 1 po BID OMEGA- 3 FATTY ACIDS 62176367763 Active Simon Castillo MD Active LISINOPRIL 10 MG ORAL TABLET 1 p qd LISINOPRIL 07102329695 Active Simon Castillo MD Active CLARITIN 10 MG ORAL TABLET 1 tablet by mouth daily as needed for allergies LORATADINE 52855510891 No Longer Active Simon Castillo MD Active TRIAMCINOLONE ACETONIDE 0.1 % EXTERNAL OINTMENT Apply to affected areas TID for up to 2 weeks TRIAMCINOLONE ACETONIDE 12452641487 No Longer Active Simon Castillo MD Active LASIX 20 MG ORAL TABLET 1 tablet by mouth daily x 2 days FUROSEMIDE 26974130342 No Longer Active Simon Castillo MD Active SULFASALAZINE 500 MG ORAL TABLET DELAYED RELEASE 2 tabs BID 02/26 SULFASALAZINE 38792903234 No Longer Active Neto Oshea DO Active PREDNISONE 20 MG ORAL TABLET 2 tabs daily for 3 days, 1 tab daily for 3 days, 1/2 tab daily for 2 days PREDNISONE 48322851180 No Longer Active Jillina Frazell INVESTIGATION DIVISION SERGEANT Active PREDNISONE 20 MG ORAL TABLET 1 tablet daily for airway inflammation PREDNISONE 06228041384 No Longer Active Jillina Frazell INVESTIGATION DIVISION SERGEANT Active AZITHROMYCIN 250 MG ORAL TABLET 2 po qd x 1 day, then 1 po qd x 4 days 01/28 AZITHROMYCIN 83789961132 No Longer Active Jillina Fraamayal INVESTIGATION DIVISION SERGEANT Active TRAMADOL HCL 50 MG ORAL TABLET 1 po q6hr PRN Pain TRAMADOL HCL 92722653793 No Longer Active Simon Castillo MD Active PREDNISONE 5 MG ORAL TABLET 1 po qod PREDNISONE 64794280616 No Longer Active Simon Castillo MD Active SYMBICORT 160-4.5 MCG/ACT INHALATION AEROSOL 2 puff BID BUDESONIDE-FORMOTEROL FUMARATE 71041870516 No Longer Active Simon Castillo MD Active FLONASE 50 MCG/ACT NASAL SUSPENSION 2 puffs in each nostril daily FLUTICASONE PROPIONATE 69573884184 No Longer Active Simon Castillo MD Active PREDNISONE 20 MG ORAL TABLET 2 tabs daily for 5 days, then 1 daily for 5 days PREDNISONE 99976485633 No Longer Active Simon Castillo MD Active PREDNISONE 20 MG ORAL TABLET 2 tabs daily for 5 days, then 1 daily for 5 days , then 0.5 for 4 days PREDNISONE 80695481494 No Longer Active Simon Castillo MD Active PREDNISONE 20 MG ORAL TABLET 2 tabs daily for 3 days, 1 tab daily for 3 days, 1/2 tab daily for 2 days PREDNISONE 76695286327 No Longer Active Simon Castillo MD Active AZITHROMYCIN 250 MG ORAL TABLET 2 po qd x 1 day, then 1 po qd x 4 days 03/16 AZITHROMYCIN 12358822298 No Longer Active Simon Castillo MD Active CARVEDILOL 6.25 MG ORAL TABLET 1 po BID CARVEDILOL 60719754790 Active Simon Castillo MD Active LISINOPRIL-HYDROCHLOROTHIAZIDE 20-12.5 MG ORAL TABLET 1/2 tab by mouth daily LISINOPRIL-HYDROCHLOROTHIAZIDE 05241858778 No Longer Active Simon Castillo MD Active PREDNISONE 5 MG ORAL TABLET Take one po qod PREDNISONE 79852527156 No Longer Active Simon Castillo MD Active GLYBURIDE 5 MG ORAL TABLET Take one by mouth daily GLYBURIDE 35619399622 No Longer Active Simon Castillo MD Active LEVAQUIN 750 MG ORAL TABLET 1 po qod x 5 doses LEVOFLOXACIN 52986663648 No Longer Active Simon Castillo MD Active CETIRIZINE HCL 10 MG ORAL TABLET 1 po qd as needed for allergies CETIRIZINE HCL 14390370142 No Longer Active Simon Castillo MD Active ATENOLOL 50 MG ORAL TABLET Take one by mouth daily ATENOLOL 04930143065 No Longer Active Simon Castillo MD Active FLONASE 50 MCG/ACT NASAL SUSPENSION 2 puffs in each nostril daily FLUTICASONE PROPIONATE 35626823775 No Longer Active Simon Castillo MD Active GLYBURIDE 5 MG ORAL TABLET Take one by mouth daily GLYBURIDE 59188384072 No Longer Active Simon Castillo MD Active SYMBICORT 80-4.5 MCG/ACT INHALATION AEROSOL 2 puffs twice a day BUDESONIDE-FORMOTEROL FUMARATE 14140315138 No Longer Active Simon Castillo MD Active PREDNISONE 20 MG ORAL TABLET 2 tabs daily for 4 days, 1 tab daily for 4 days, 1/2 tab daily for 4 days PREDNISONE 56860620748 No Longer Active Simon Castillo MD Active AMOXICILLIN 500 MG ORAL CAPSULE 2 po BID x 10 days AMOXICILLIN 76578095105 No Longer Active Simon Castillo MD Active METFORMIN HCL 1000 MG ORAL TABLET 1 by mounth twice a day METFORMIN HCL 81862364777 No Longer Active Simon Castillo MD Active IBUPROFEN 800 MG ORAL TABLET Take 1 tab every 6 hrs prn IBUPROFEN 07811665959 No Longer Active Simon Castillo MD Active GLYBURIDE 2.5 MG ORAL TABLET Take one by mouth daily GLYBURIDE 60130504512 No Longer Active Simon Castillo MD Active LANCETS 2 qd LANCETS 79392658884 Active Pamela Conde Active ACACIA CONTOUR TEST IN VITRO STRIP Use with testing twice daily GLUCOSE BLOOD 40274443979 Active Simon Castillo MD Active GLYBURIDE 2.5 MG ORAL TABLET Take one by mouth daily GLYBURIDE 2.5 MG ORAL TABLET 269360 GLYBURIDE Inactive PREDNISONE 20 MG ORAL TABLET 2 tabs daily for 4 days, 1 tab daily for 4 days, 1/2 tab daily for 4 days PREDNISONE 20 MG ORAL TABLET 803424 PREDNISONE Inactive SYMBICORT 80-4.5 MCG/ACT INHALATION AEROSOL 2 puffs twice a day SYMBICORT 80-4.5 MCG/ACT INHALATION AEROSOL BUDESONIDE- FORMOTEROL FUMARATE Inactive FLONASE 50 MCG/ACT NASAL SUSPENSION 2 puffs in each nostril daily FLONASE 50 MCG/ACT NASAL SUSPENSION 3851222 FLUTICASONE PROPIONATE Inactive ATENOLOL 50 MG ORAL TABLET Take one by mouth daily ATENOLOL 50 MG ORAL TABLET 635543 ATENOLOL Inactive CETIRIZINE HCL 10 MG ORAL TABLET 1 po qd as needed for allergies CETIRIZINE HCL 10 MG ORAL TABLET 5595111 CETIRIZINE HCL Inactive LEVAQUIN 750 MG ORAL TABLET 1 po qod x 5 doses LEVAQUIN 750 MG ORAL TABLET 895688 LEVOFLOXACIN Inactive GLYBURIDE 5 MG ORAL TABLET Take one by mouth daily GLYBURIDE 5 MG ORAL TABLET 659336 GLYBURIDE Inactive PREDNISONE 5 MG ORAL TABLET Take one po qod PREDNISONE 5 MG ORAL TABLET 774796 PREDNISONE Inactive PREDNISONE 20 MG ORAL TABLET 2 tabs daily for 5 days, then 1 daily for 5 days PREDNISONE 20 MG ORAL TABLET 558767 PREDNISONE Inactive FLONASE 50 MCG/ACT NASAL SUSPENSION 2 puffs in each nostril daily FLONASE 50 MCG/ACT NASAL SUSPENSION 6763250 FLUTICASONE PROPIONATE Inactive SYMBICORT 160-4.5 MCG/ACT INHALATION AEROSOL 2 puff BID SYMBICORT 160-4.5 MCG/ACT INHALATION AEROSOL BUDESONIDE-FORMOTEROL FUMARATE Inactive PREDNISONE 5 MG ORAL TABLET 1 po qod PREDNISONE 5 MG ORAL TABLET 185932 PREDNISONE Inactive PREDNISONE 20 MG ORAL TABLET 1 tablet daily for airway inflammation PREDNISONE 20 MG ORAL TABLET 594774 PREDNISONE Inactive SULFASALAZINE 500 MG ORAL TABLET DELAYED RELEASE 2 tabs BID 02/26 SULFASALAZINE 500 MG ORAL TABLET DELAYED RELEASE 693644 SULFASALAZINE Inactive LASIX 20 MG ORAL TABLET 1 tablet by mouth daily x 2 days LASIX 20 MG ORAL TABLET 599245 FUROSEMIDE Inactive CLARITIN 10 MG ORAL TABLET 1 tablet by mouth daily as needed for allergies CLARITIN 10 MG ORAL TABLET 569248 LORATADINE Inactive CLOTRIMAZOLE 1 % EXTERNAL CREAM Apply to affected area of feet twice daily PRN Rash CLOTRIMAZOLE 1 % EXTERNAL CREAM 847657 CLOTRIMAZOLE Inactive HYDROCODONE-ACETAMINOPHEN 5-325 MG ORAL TABLET 1 tab by mouth 8 hours as needed for pain HYDROCODONE-ACETAMINOPHEN 5-325 MG ORAL TABLET 628758 HYDROCODONE-ACETAMINOPHEN Inactive TRAMADOL HCL 50 MG ORAL TABLET 1-2 tablets every 6 hours as needed for pain TRAMADOL HCL 50 MG ORAL TABLET 401064 TRAMADOL HCL Inactive PROMETHAZINE-CODEINE 6.25-10 MG/5ML ORAL SYRUP 5ml po qHS PRN Cough PROMETHAZINE-CODEINE 6.25-10 MG/5ML ORAL SYRUP 408184 PROMETHAZINE-CODEINE Inactive AZITHROMYCIN 250 MG ORAL TABLET 2 po qd x 1, then 1 po qd x 4 AZITHROMYCIN 250 MG ORAL TABLET 455936 AZITHROMYCIN Inactive AMOXICILLIN 500 MG ORAL CAPSULE 2 po BID x 10 days AMOXICILLIN 500 MG ORAL CAPSULE 399720 AMOXICILLIN Inactive GLYBURIDE 5 MG ORAL TABLET Take one by mouth daily GLYBURIDE 5 MG ORAL TABLET 985238 GLYBURIDE Inactive AZITHROMYCIN 250 MG ORAL TABLET 2 po qd x 1 day, then 1 po qd x 4 days 03/16 AZITHROMYCIN 250 MG ORAL TABLET 271322 AZITHROMYCIN Inactive PREDNISONE 20 MG ORAL TABLET 2 tabs daily for 3 days, 1 tab daily for 3 days, 1/2 tab daily for 2 days PREDNISONE 20 MG ORAL TABLET 966606 PREDNISONE Inactive PREDNISONE 20 MG ORAL TABLET 2 tabs daily for 5 days, then 1 daily for 5 days , then 0.5 for 4 days PREDNISONE 20 MG ORAL TABLET 749832 PREDNISONE Inactive AZITHROMYCIN 250 MG ORAL TABLET 2 po qd x 1 day, then 1 po qd x 4 days 01/28 AZITHROMYCIN 250 MG ORAL TABLET 163717 AZITHROMYCIN Inactive PREDNISONE 20 MG ORAL TABLET 2 tabs daily for 3 days, 1 tab daily for 3 days, 1/2 tab daily for 2 days PREDNISONE 20 MG ORAL TABLET 353101 PREDNISONE Inactive TRIAMCINOLONE ACETONIDE 0.1 % EXTERNAL OINTMENT Apply to affected areas TID for up to 2 weeks TRIAMCINOLONE ACETONIDE 0.1 % EXTERNAL OINTMENT 4481915 TRIAMCINOLONE ACETONIDE Inactive AUGMENTIN 875-125 MG ORAL TABLET 1 po BID x 10 days AUGMENTIN 875-125 MG ORAL TABLET 869861 AMOXICILLIN-POT CLAVULANATE Inactive PREDNISONE 20 MG ORAL TABLET 2 po qd x 5 days PREDNISONE 20 MG ORAL TABLET 850797 PREDNISONE Inactive Immunizations Vaccine Administration Date Value [...] Peptide - Chemistry sodium, serum 142 mmol/L 326-907 3390/07/18 potassium, serum 5.0 mmol/L 3.5-5.2 chloride, serum [...] Panel - Chemistry sodium, serum 138 mmol/L 254-848 3522/06/04 carbon dioxide, venous blood 23.4 mmol/L 21.0-32.0 [...] Rate - Chemistry sodium, serum 142 mmol/L 162-582 3456/02/27 carbon dioxide, venous blood 26.2 mmol/L 21.0-32.0 [...] Panel - Chemistry sodium, serum 140 mmol/L 688-195 8421/07/13 carbon dioxide, venous blood 23.7 mmol/L 21.0-32.0 [...] dipstick Negative Negative sodium, serum 142 mmol/L 066-979 4879/01/08 carbon dioxide, venous blood 23.9 mmol/L 21.0-32.0 [...] Negative;Positive Encounters Code Encounter Date Provider Facility CPT-71275 Level 4 Est. Patient 11:32:07 CDT Simon Castillo MD [facility] CPT-97497 Level 3 Est. Patient 11:36:15 CDT Simon Castillo MD [facility] CPT-46159 Level 4 Est. Patient 14:06:23 PARKS AND RECREATION MANAGER Simon Castillo MD [facility] CPT-39767 Level 3 Est. Patient 12:04:38 PARKS AND RECREATION MANAGER Giles Tatum [facility] CPT-43740 Level 3 Est. Patient 11:57:09 PARKS AND RECREATION MANAGER [facility] Tatum [facility] CPT-49872 Level 3 Est. Patient 11:48:57 PARKS AND RECREATION MANAGER [facility] Tatum [facility] CPT-38667 Level 4 Est. Patient 09:54:36 CDT Simon Castillo MD [facility] CPT-00211 Level 4 Est. Patient 08:48:38 CDT Simon Castillo MD [facility] CPT-14766 Level 4 Est. Patient 09:54:08 CDT Simon Castillo MD [facility] CPT-99481 Level 4 Est. Patient 16:11:23 CDT Simon Castillo MD [facility] CPT-99876 Level 4 Est. Patient 09:29:28 [employer]KS AND RECREATION MANAGER Simon Castillo MD [facility] CPT-20340 Level 3 Est. Patient 09:18:25 CDT Simon Castillo MD [facility] CPT-55542 Level 4 Est. Patient 11:51:23 CDT Simon Castillo MD [facility] CPT-89200 Level 4 Est. Patient 14:32:04 CDT Neto Oshea DO [facility] CPT-06328 Level 3 Est. Patient 08:41:43 CDT [facility] T[facility] CPT-64969 Level 3 Est. Patient 08:40:53 CDT Jillina Nashzell [facility] CPT-70940 Level 3 Est. Patient 08:36:52 CDT Jillina Nashzell [facility] CPT-28900 Level 3 Est. Patient 09:08:44 CDT Jilltriston Salcidol [facility] CPT-62468 Level 4 Est. Patient 09:17:32 PARKS AND RECREATION MANAGER Simon Castillo MD [facility] CPT-61594 Level 3 Est. Patient 11:22:22 PARKS AND RECREATION MANAGER Simon Castillo MD [facility] CPT-79012 Level 3 Est. Patient 09:02:14 CDT Simon Castillo MD [facility] CPT-44057 Level 4 Est. Patient 08:47:25 CDT Simon Castillo MD [facility] CPT-11377 Level 4 Est. Patient 10:17:25 CDT Simon Castillo MD [facility] CPT-46286 Level 4 Est. Patient 10:10:09 [employer]KS AND RECREATION MANAGER Simon Castillo MD [facility] CPT-74417 Level 4 Est. Patient 11:48:19 CDT Simon Castillo MD [facility] CPT-23693 Level 4 Est. Patient 08:59:29 CDT Simon Castillo MD [facility] CPT-10635 Level 4 Est. Patient 10:52:51 PARKS AND RECREATION MANAGER Simon Castillo MD [facility] CPT-30606 Level 4 Est. Patient 11:50:30 CDT Simon Castillo MD [facility] CPT-99796 Level 4 Est. Patient 09:54:46 CDT Simon Castillo MD [facility] CPT-31291 Level 3 Est. Patient 11:10:14 CDT Simon Castillo MD [facility] CPT-70221 Level 4 Est. Patient 09:44:02 CDT Simon Castillo MD [facility] CPT-15250 Level 3 Est. Patient 09:27:48 CDT Simon Castillo MD [facility] CPT-31808 Level 3 Est. Patient 09:58:06 PARKS AND RECREATION MANAGER Simon Castillo MD [facility] CPT-73925 Level 3 Est. Patient 09:51:35 CDT Simon Castillo MD [facility] Procedures Code Procedure Name Date Entry Date Standard Description CPT-69101 EKG Trac and Interp - XRAY USE ONLY 11:41:45 CDT 02/23 CPT-03212 Chest, 2 views 11:41:45 CDT CPT-66383 EKG Trac and Interp - XRAY USE ONLY 12:19:18 PARKS AND RECREATION MANAGER 09/29 CPT-33915 Chest, 2 views 12:19:17 PARKS AND RECREATION MANAGER CPT-Cryo Cryotherapy 09:54:37 CDT CPT-96568 First Vx - Ix admin for Medicare patients 09:13:10 CDT CPT-38330 Fluzone High-Dose Intramuscular Suspension 09:13:10 CDT CPT-G0439 Subsequent Annual Wellness Exam 09:41:17 CDT CPT-02890 Lipid - LAB USE ONLY 17:15:33 CDT CPT-51669 HGBA1C - LAB USE ONLY 17:15:33 CDT CPT-31587 CMP - LAB USE ONLY 17:15:33 CDT CPT-64413 Venipuncture Draw Fee 17:15:33 CDT CPT-[facility] Transitional Care Mgmt-High 11:01:28 PARKS AND RECREATION MANAGER CPT-66230 First Vx - Ix admin for Medicare patients 17:33:39 CDT CPT-67515 Fluzone High-Dose Intramuscular Suspension 17:33:39 CDT CPT-G0438 Initial Annual Wellness Exam 08:57:30 CDT CPT-26021 Chest 2V Frontal and Lat - XRAY USE ONLY 09:00:14 CDT CPT-91936 Venipuncture Draw Fee 13:33:02 CDT CPT-18958 Bone Density 09:37:49 [employer]KS AND RECREATION MANAGER CPT-33670 Fluzone High Dose 17:20:42 CDT CPT-36107 Prevnar 13 17:20:42 CDT CPT-38763 Administration 2+ single or combination vaccines inc oral 17:20:42 CDT CPT-60867 Administration single or combination vaccine inc oral 17 :20:42 CDT CPT-68041 Hand comp min 3V 09:24:38 CDT CPT-64744 Venipuncture Draw Fee 08:07:29 PARKS AND RECREATION MANAGER CPT-58607 Venipuncture Draw Fee 09:02:51 PARKS AND RECREATION MANAGER CPT-37370 Venipuncture Draw Fee 12:45:08 PARKS AND RECREATION MANAGER CPT-64732 Venipuncture Draw Fee 09:25:31 CDT CPT-G0008 Administration of Influenza Virus Vaccine 14:41:29 CDT CPT-20529 Fluzone High-Dose Intramuscular Suspension 14:41:29 CDT CPT-Cryo Cryotherapy 11:48:20 CDT CPT-29535 EKG Trac and Interp 09:21:58 CDT CPT-72348 Chest 2V Frontal and Lat 09:21:58 CDT CPT-Cryo Cryotherapy 10:54:51 [employer]KS AND RECREATION MANAGER CPT-94514 Administration 2+ single or combination vaccines inc oral 10:42:19 CDT CPT-75728 Administration single or combination vaccine inc oral 10 :42:19 CDT CPT-00303 Pneumovax 10:42:19 CDT CPT-62993 Influenza High Dose age 65+ 10:42:19 CDT CPT-05086 Administration single or combination vaccine inc oral 13 :18:54 CDT CPT-08950 Influenza High Dose age 65+ 13:18:54 CDT CPT-90196 Venipuncture Draw Fee 11:53:16 CDT CPT-52388 LS spine comp w obliq 11:03:13 CDT CPT-Cryo Cryotherapy 08:27:16 [employer]KS AND RECREATION MANAGER CPT-06788 Administration single or combination vaccine inc oral 10 :56:34 CDT CPT-29155 Influenza High Dose age 65+ 10:56:34 CDT
--- OUTSIDE RECORDS SUMMARY | 2018-03-31 19:02 | XMS REPORT | Clinical Summary ---
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 Kerry Castillo MD Steroid use, skilled nursing ICD-V58.65 Kerry Castillo MD Hand pain, bilateral [...] MG ORAL TABLET 1 po qd FUROSEMIDE 07058505200 Active Simon Castillo MD Active BACTRIM DS 800-160 MG ORAL TABLET 1 po BID x 7 days SULFAMETHOXAZOLE-TRIMETHOPRIM 82675272231 Active Simon Castillo MD Active AZITHROMYCIN 250 MG ORAL TABLET 2 po qd x 1, then 1 po qd x 4 AZITHROMYCIN 72160391704 No Longer Active Simon Castillo MD Active PROMETHAZINE-CODEINE 6.25-10 MG/5ML ORAL SYRUP 5ml po qHS PRN Cough PROMETHAZINE-CODEINE 83583943267 No Longer Active Simon Castillo MD Active SINGULAIR 10 MG ORAL TABLET 1 po qd PRN Asthma/Allergies MONTELUKAST SODIUM 38979492583 Active Simon Castillo MD Active PREDNISONE 20 MG ORAL TABLET 2 po qd x 5 days PREDNISONE 30440567070 No Longer Active Simon Castillo MD Active VIAGRA 100 MG ORAL TABLET 0.5 to 1 po qd PRN Erectile dysfunction SILDENAFIL CITRATE 82867062807 Active Simon Castillo MD Active LUTEIN-ZEAXANTHIN 6-1 MG ORAL TABLET 2 po qd LUTEIN- ZEAXANTHIN 19531149582 Active Simon Castillo MD Active BILBERRY CAPSULE 1 po qd BILBERRY (VACCINIUM MYRTILLUS) CAPS 76829169489 Active Simon Castillo MD Active TRAMADOL HCL 50 MG ORAL TABLET 1-2 tablets every 6 hours as needed for pain TRAMADOL HCL 25572313097 No Longer Active Simon Castillo MD Active HYDROCODONE-ACETAMINOPHEN 5-325 MG ORAL TABLET 1 tab by mouth 8 hours as needed for pain HYDROCODONE-ACETAMINOPHEN 14976124619 No Longer Active Simon Castillo MD Active BUMETANIDE 0.5 MG ORAL TABLET 1 po qd BUMETANIDE 93055695812 Active Simon Castillo MD Active AUGMENTIN 875-125 MG ORAL TABLET 1 po BID x 10 days AMOXICILLIN-POT CLAVULANATE 24084016174 No Longer Active Simon Castillo MD Active PIOGLITAZONE HCL 30 MG ORAL TABLET 1 po qd PIOGLITAZONE HCL 04161637676 Active Simon Castillo MD Active GLIMEPIRIDE 4 MG ORAL TABLET 1 po BID GLIMEPIRIDE 09847796192 Active Simon Castillo MD Active ASPIRIN EC 81 MG ORAL TABLET DELAYED RELEASE 1 po qd ASPIRIN 06066371999 Active Simon Castillo MD Active CLOTRIMAZOLE 1 % EXTERNAL CREAM Apply to affected area of feet twice daily PRN Rash CLOTRIMAZOLE 30869223007 No Longer Active Simon Castillo MD Active PREDNISONE 5 MG ORAL TABLET 1 po BID PREDNISONE 96716594333 Active Dolly MCDERMOTT Active FISH OIL 1000 MG ORAL CAPSULE DELAYED RELEASE 1 po BID OMEGA- 3 FATTY ACIDS 77245500851 Active Simon Castillo MD Active LISINOPRIL 10 MG ORAL TABLET 1 p qd LISINOPRIL 37982422360 Active Simon Castillo MD Active CLARITIN 10 MG ORAL TABLET 1 tablet by mouth daily as needed for allergies LORATADINE 25950329965 No Longer Active Simon Castillo MD Active TRIAMCINOLONE ACETONIDE 0.1 % EXTERNAL OINTMENT Apply to affected areas TID for up to 2 weeks TRIAMCINOLONE ACETONIDE 17299228623 No Longer Active Simon Castillo MD Active LASIX 20 MG ORAL TABLET 1 tablet by mouth daily x 2 days FUROSEMIDE 66467581494 No Longer Active Simon Castillo MD Active SULFASALAZINE 500 MG ORAL TABLET DELAYED RELEASE 2 tabs BID 02/26 SULFASALAZINE 09653745652 No Longer Active Neto Oshea DO Active PREDNISONE 20 MG ORAL TABLET 2 tabs daily for 3 days, 1 tab daily for 3 days, 1/2 tab daily for 2 days PREDNISONE 74577961902 No Longer Active Jillina Fratico HEMPHILL Active PREDNISONE 20 MG ORAL TABLET 1 tablet daily for airway inflammation PREDNISONE 45266333177 No Longer Active Jillina Frazell [employer]ENT Active AZITHROMYCIN 250 MG ORAL TABLET 2 po qd x 1 day, then 1 po qd x 4 days 01/28 AZITHROMYCIN 64368409815 No Longer Active Jillina Fraamayal [employer] Active TRAMADOL HCL 50 MG ORAL TABLET 1 po q6hr PRN Pain TRAMADOL HCL 40852088710 No Longer Active Simon Castillo MD Active PREDNISONE 5 MG ORAL TABLET 1 po qod PREDNISONE 72082334661 No Longer Active Simon Castillo MD Active SYMBICORT 160-4.5 MCG/ACT INHALATION AEROSOL 2 puff BID BUDESONIDE-FORMOTEROL FUMARATE 57549354167 No Longer Active Simon Castillo MD Active FLONASE 50 MCG/ACT NASAL SUSPENSION 2 puffs in each nostril daily FLUTICASONE PROPIONATE 65970719972 No Longer Active Simon Castillo MD Active PREDNISONE 20 MG ORAL TABLET 2 tabs daily for 5 days, then 1 daily for 5 days PREDNISONE 16976537352 No Longer Active Simon Castillo MD Active PREDNISONE 20 MG ORAL TABLET 2 tabs daily for 5 days, then 1 daily for 5 days , then 0.5 for 4 days PREDNISONE 66363889786 No Longer Active Simon Castillo MD Active PREDNISONE 20 MG ORAL TABLET 2 tabs daily for 3 days, 1 tab daily for 3 days, 1/2 tab daily for 2 days PREDNISONE 50924207907 No Longer Active Simon Castillo MD Active AZITHROMYCIN 250 MG ORAL TABLET 2 po qd x 1 day, then 1 po qd x 4 days 03/16 AZITHROMYCIN 77041671381 No Longer Active Simon Castillo MD Active CARVEDILOL 6.25 MG ORAL TABLET 1 po BID CARVEDILOL 96618315891 Active Simon Castillo MD Active LISINOPRIL-HYDROCHLOROTHIAZIDE 20-12.5 MG ORAL TABLET 1/2 tab by mouth daily LISINOPRIL-HYDROCHLOROTHIAZIDE 32894708602 No Longer Active Simon Castillo MD Active PREDNISONE 5 MG ORAL TABLET Take one po qod PREDNISONE 58162186737 No Longer Active Simon Castillo MD Active GLYBURIDE 5 MG ORAL TABLET Take one by mouth daily GLYBURIDE 67459283244 No Longer Active Simon Castillo MD Active LEVAQUIN 750 MG ORAL TABLET 1 po qod x 5 doses LEVOFLOXACIN 00522737086 No Longer Active Simon Castillo MD Active CETIRIZINE HCL 10 MG ORAL TABLET 1 po qd as needed for allergies CETIRIZINE HCL 95593082519 No Longer Active Simon Castillo MD Active ATENOLOL 50 MG ORAL TABLET Take one by mouth daily ATENOLOL 71965795063 No Longer Active Simon Castillo MD Active FLONASE 50 MCG/ACT NASAL SUSPENSION 2 puffs in each nostril daily FLUTICASONE PROPIONATE 49419742336 No Longer Active Simon Castillo MD Active GLYBURIDE 5 MG ORAL TABLET Take one by mouth daily GLYBURIDE 51333587060 No Longer Active Simon Castillo MD Active SYMBICORT 80-4.5 MCG/ACT INHALATION AEROSOL 2 puffs twice a day BUDESONIDE-FORMOTEROL FUMARATE 16318203999 No Longer Active Simon Castillo MD Active PREDNISONE 20 MG ORAL TABLET 2 tabs daily for 4 days, 1 tab daily for 4 days, 1/2 tab daily for 4 days PREDNISONE 78714472288 No Longer Active Simon Castillo MD Active AMOXICILLIN 500 MG ORAL CAPSULE 2 po BID x 10 days AMOXICILLIN 15824023777 No Longer Active Simon Castillo MD Active METFORMIN HCL 1000 MG ORAL TABLET 1 by mounth twice a day METFORMIN HCL 67416385668 No Longer Active Simon Castillo MD Active IBUPROFEN 800 MG ORAL TABLET Take 1 tab every 6 hrs prn IBUPROFEN 71122791085 No Longer Active Simon Castillo MD Active GLYBURIDE 2.5 MG ORAL TABLET Take one by mouth daily GLYBURIDE 76643991808 No Longer Active Simon Castillo MD Active LANCETS 2 qd LANCETS 21873782767 Active Pamela Conde Active ACACIA CONTOUR TEST IN VITRO STRIP Use with testing twice daily GLUCOSE BLOOD 17232937466 Active Simon Castillo MD Active GLYBURIDE 2.5 MG ORAL TABLET Take one by mouth daily GLYBURIDE 2.5 MG ORAL TABLET 807735 GLYBURIDE Inactive PREDNISONE 20 MG ORAL TABLET 2 tabs daily for 4 days, 1 tab daily for 4 days, 1/2 tab daily for 4 days PREDNISONE 20 MG ORAL TABLET 301083 PREDNISONE Inactive SYMBICORT 80-4.5 MCG/ACT INHALATION AEROSOL 2 puffs twice a day SYMBICORT 80-4.5 MCG/ACT INHALATION AEROSOL BUDESONIDE- FORMOTEROL FUMARATE Inactive FLONASE 50 MCG/ACT NASAL SUSPENSION 2 puffs in each nostril daily FLONASE 50 MCG/ACT NASAL SUSPENSION 0261235 FLUTICASONE PROPIONATE Inactive ATENOLOL 50 MG ORAL TABLET Take one by mouth daily ATENOLOL 50 MG ORAL TABLET 836127 ATENOLOL Inactive CETIRIZINE HCL 10 MG ORAL TABLET 1 po qd as needed for allergies CETIRIZINE HCL 10 MG ORAL TABLET 4116250 CETIRIZINE HCL Inactive LEVAQUIN 750 MG ORAL TABLET 1 po qod x 5 doses LEVAQUIN 750 MG ORAL TABLET 880717 LEVOFLOXACIN Inactive GLYBURIDE 5 MG ORAL TABLET Take one by mouth daily GLYBURIDE 5 MG ORAL TABLET 253210 GLYBURIDE Inactive PREDNISONE 5 MG ORAL TABLET Take one po qod PREDNISONE 5 MG ORAL TABLET 590730 PREDNISONE Inactive PREDNISONE 20 MG ORAL TABLET 2 tabs daily for 5 days, then 1 daily for 5 days PREDNISONE 20 MG ORAL TABLET 452484 PREDNISONE Inactive FLONASE 50 MCG/ACT NASAL SUSPENSION 2 puffs in each nostril daily FLONASE 50 MCG/ACT NASAL SUSPENSION 7235209 FLUTICASONE PROPIONATE Inactive SYMBICORT 160-4.5 MCG/ACT INHALATION AEROSOL 2 puff BID SYMBICORT 160-4.5 MCG/ACT INHALATION AEROSOL BUDESONIDE-FORMOTEROL FUMARATE Inactive PREDNISONE 5 MG ORAL TABLET 1 po qod PREDNISONE 5 MG ORAL TABLET 187157 PREDNISONE Inactive PREDNISONE 20 MG ORAL TABLET 1 tablet daily for airway inflammation PREDNISONE 20 MG ORAL TABLET 387391 PREDNISONE Inactive SULFASALAZINE 500 MG ORAL TABLET DELAYED RELEASE 2 tabs BID 02/26 SULFASALAZINE 500 MG ORAL TABLET DELAYED RELEASE 873372 SULFASALAZINE Inactive LASIX 20 MG ORAL TABLET 1 tablet by mouth daily x 2 days LASIX 20 MG ORAL TABLET 425057 FUROSEMIDE Inactive CLARITIN 10 MG ORAL TABLET 1 tablet by mouth daily as needed for allergies CLARITIN 10 MG ORAL TABLET 857888 LORATADINE Inactive CLOTRIMAZOLE 1 % EXTERNAL CREAM Apply to affected area of feet twice daily PRN Rash CLOTRIMAZOLE 1 % EXTERNAL CREAM 022645 CLOTRIMAZOLE Inactive HYDROCODONE-ACETAMINOPHEN 5-325 MG ORAL TABLET 1 tab by mouth 8 hours as needed for pain HYDROCODONE-ACETAMINOPHEN 5-325 MG ORAL TABLET 131665 HYDROCODONE-ACETAMINOPHEN Inactive TRAMADOL HCL 50 MG ORAL TABLET 1-2 tablets every 6 hours as needed for pain TRAMADOL HCL 50 MG ORAL TABLET 287523 TRAMADOL HCL Inactive PROMETHAZINE-CODEINE 6.25-10 MG/5ML ORAL SYRUP 5ml po qHS PRN Cough PROMETHAZINE-CODEINE 6.25-10 MG/5ML ORAL SYRUP 577399 PROMETHAZINE-CODEINE Inactive AZITHROMYCIN 250 MG ORAL TABLET 2 po qd x 1, then 1 po qd x 4 AZITHROMYCIN 250 MG ORAL TABLET 527651 AZITHROMYCIN Inactive AMOXICILLIN 500 MG ORAL CAPSULE 2 po BID x 10 days AMOXICILLIN 500 MG ORAL CAPSULE 651639 AMOXICILLIN Inactive GLYBURIDE 5 MG ORAL TABLET Take one by mouth daily GLYBURIDE 5 MG ORAL TABLET 226698 GLYBURIDE Inactive AZITHROMYCIN 250 MG ORAL TABLET 2 po qd x 1 day, then 1 po qd x 4 days 03/16 AZITHROMYCIN 250 MG ORAL TABLET 016337 AZITHROMYCIN Inactive PREDNISONE 20 MG ORAL TABLET 2 tabs daily for 3 days, 1 tab daily for 3 days, 1/2 tab daily for 2 days PREDNISONE 20 MG ORAL TABLET 909994 PREDNISONE Inactive PREDNISONE 20 MG ORAL TABLET 2 tabs daily for 5 days, then 1 daily for 5 days , then 0.5 for 4 days PREDNISONE 20 MG ORAL TABLET 995789 PREDNISONE Inactive AZITHROMYCIN 250 MG ORAL TABLET 2 po qd x 1 day, then 1 po qd x 4 days 01/28 AZITHROMYCIN 250 MG ORAL TABLET 646561 AZITHROMYCIN Inactive PREDNISONE 20 MG ORAL TABLET 2 tabs daily for 3 days, 1 tab daily for 3 days, 1/2 tab daily for 2 days PREDNISONE 20 MG ORAL TABLET 501847 PREDNISONE Inactive TRIAMCINOLONE ACETONIDE 0.1 % EXTERNAL OINTMENT Apply to affected areas TID for up to 2 weeks TRIAMCINOLONE ACETONIDE 0.1 % EXTERNAL OINTMENT 0343697 TRIAMCINOLONE ACETONIDE Inactive AUGMENTIN 875-125 MG ORAL TABLET 1 po BID x 10 days AUGMENTIN 875-125 MG ORAL TABLET 957658 AMOXICILLIN-POT CLAVULANATE Inactive PREDNISONE 20 MG ORAL TABLET 2 po qd x 5 days PREDNISONE 20 MG ORAL TABLET 998501 PREDNISONE Inactive Immunizations Vaccine Administration Date Value [...] Peptide - Chemistry sodium, serum 142 mmol/L 674-066 1986/07/18 potassium, serum 5.0 mmol/L 3.5-5.2 chloride, serum [...] Panel - Chemistry sodium, serum 138 mmol/L 697-572 7856/06/04 carbon dioxide, venous blood 23.4 mmol/L 21.0-32.0 [...] Rate - Chemistry sodium, serum 142 mmol/L 608-991 5962/02/27 carbon dioxide, venous blood 26.2 mmol/L 21.0-32.0 [...] Panel - Chemistry sodium, serum 140 mmol/L 867-646 9243/07/13 carbon dioxide, venous blood 23.7 mmol/L 21.0-32.0 [...] dipstick Negative Negative sodium, serum 142 mmol/L 487-768 8808/01/08 carbon dioxide, venous blood 23.9 mmol/L 21.0-32.0 [...] Negative;Positive Encounters Code Encounter Date Provider Facility CPT-06523 Level 4 Est. Patient 11:32:07 CDT Simon Castillo [facility] CPT-75043 Level 3 Est. Patient 11:36:15 CDT Simon Castillo [facility] CPT-64865 Level 4 Est. Patient 14:06:23 BUILDING TECH Simon Castillo MD [facility] CPT-87129 Level 3 Est. Patient 12:04:38 BUILDING TECH Giles Tatum [facility] CPT-37281 Level 3 Est. Patient 11:57:09 BUILDING TECH Giles Tatum [facility] CPT-40351 Level 3 Est. Patient 11:48:57 BUILDING TECH Giles Tatum [facility] CPT-68719 Level 4 Est. Patient 09:54:36 CDT Simon Castillo MD [facility] CPT-06506 Level 4 Est. Patient 08:48:38 CDT Simon Castillo MD [facility] CPT-17675 Level 4 Est. Patient 09:54:08 CDT Simon Castillo MD [facility] CPT-81517 Level 4 Est. Patient 16:11:23 CDT Simon Castillo MD [facility] CPT-34110 Level 4 Est. Patient 09:29:28 BUILDING TECH Simon Castillo MD [facility] CPT-32780 Level 3 Est. Patient 09:18:25 CDT Simon Castillo MD [facility] CPT-10164 Level 4 Est. Patient 11:51:23 CDT Simon Castillo MD [facility] CPT-49815 Level 4 Est. Patient 14:32:04 CDT Neto Oshea DO [facility] CPT-32367 Level 3 Est. Patient 08:41:43 CDT Jillina Nashzell [facility] CPT-89423 Level 3 Est. Patient 08:40:53 CDT Jillina Frazell [facility] CPT-08128 Level 3 Est. Patient 08:36:52 CDT Jillina Frazell [facility] CPT-99552 Level 3 Est. Patient 09:08:44 CDT Jillina Nashzell [facility] CPT-16099 Level 4 Est. Patient 09:17:32 BUILDING TECH Simon Castillo MD [facility] CPT-78464 Level 3 Est. Patient 11:22:22 BUILDING TECH Simon Castillo MD [facility] CPT-73149 Level 3 Est. Patient 09:02:14 CDT Simon Castillo MD [facility] CPT-06424 Level 4 Est. Patient 08:47:25 CDT Simon Castillo MD [facility] CPT-36745 Level 4 Est. Patient 10:17:25 CDT Simon Castillo MD [facility] CPT-40954 Level 4 Est. Patient 10:10:09 BUILDING TECH Simon Castillo MD [facility] CPT-56236 Level 4 Est. Patient 11:48:19 CDT Simon Castillo MD [facility] CPT-98686 Level 4 Est. Patient 08:59:29 CDT Simon Castillo MD [facility] CPT-30994 Level 4 Est. Patient 10:52:51 BUILDING TECH Simon Castillo MD [facility] CPT-25940 Level 4 Est. Patient 11:50:30 CDT Simon Castillo MD [facility] CPT-79757 Level 4 Est. Patient 09:54:46 CDT Simon Castillo MD [facility] CPT-83469 Level 3 Est. Patient 11:10:14 CDT Simon Castillo MD [facility] CPT-92592 Level 4 Est. Patient 09:44:02 CDT Simon Castillo MD [facility] CPT-16326 Level 3 Est. Patient 09:27:48 CDT Simon Castillo MD [facility] CPT-32576 Level 3 Est. Patient 09:58:06 BUILDING TECH Simon Castillo MD [facility] CPT-96041 Level 3 Est. Patient 09:51:35 CDT Simon Castillo MD [facility] Procedures Code Procedure Name Date Entry Date Standard Description CPT-42890 EKG Trac and Interp - XRAY USE ONLY 11:41:45 CDT 02/23 CPT-43644 Chest, 2 views 11:41:45 CDT CPT-46752 EKG Trac and Interp - XRAY USE ONLY 12:19:18 BUILDING TECH 09/29 CPT-85356 Chest, 2 views 12:19:17 BUILDING TECH CPT-Cryo Cryotherapy 09:54:37 CDT CPT-52293 First Vx - Ix admin for Medicare patients 09:13:10 CDT CPT-31203 Fluzone High-Dose Intramuscular Suspension 09:13:10 CDT CPT-G0439 Subsequent Annual Wellness Exam 09:41:17 CDT CPT-54240 Lipid - LAB USE ONLY 17:15:33 CDT CPT-73637 HGBA1C - LAB USE ONLY 17:15:33 CDT CPT-64552 CMP - LAB USE ONLY 17:15:33 CDT CPT-60390 Venipuncture Draw Fee 17:15:33 CDT CPT-[facility] Transitional Care Mgmt-High 11:01:28 BUILDING TECH CPT-50129 First Vx - Ix admin for Medicare patients 17:33:39 CDT CPT-38497 Fluzone High-Dose Intramuscular Suspension 17:33:39 CDT CPT-G0438 Initial Annual Wellness Exam 08:57:30 CDT CPT-32301 Chest 2V Frontal and Lat - XRAY USE ONLY 09:00:14 CDT CPT-37019 Venipuncture Draw Fee 13:33:02 CDT CPT-78137 Bone Density 09:37:49 BUILDING TECH CPT-42843 Fluzone High Dose 17:20:42 CDT CPT-24506 Prevnar 13 17:20:42 CDT CPT-46466 Administration 2+ single or combination vaccines inc oral 17:20:42 CDT CPT-00212 Administration single or combination vaccine inc oral 17 :20:42 CDT CPT-00279 Hand comp min 3V 09:24:38 CDT CPT-78274 Venipuncture Draw Fee 08:07:29 BUILDING TECH CPT-59269 Venipuncture Draw Fee 09:02:51 BUILDING TECH CPT-74315 Venipuncture Draw Fee 12:45:08 BUILDING TECH CPT-14278 Venipuncture Draw Fee 09:25:31 CDT CPT-G0008 Administration of Influenza Virus Vaccine 14:41:29 CDT CPT-59225 Fluzone High-Dose Intramuscular Suspension 14:41:29 CDT CPT-Cryo Cryotherapy 11:48:20 CDT CPT-64673 EKG Trac and Interp 09:21:58 CDT CPT-74252 Chest 2V Frontal and Lat 09:21:58 CDT CPT-Cryo Cryotherapy 10:54:51 BUILDING TECH CPT-13283 Administration 2+ single or combination vaccines inc oral 10:42:19 CDT CPT-64143 Administration single or combination vaccine inc oral 10 :42:19 CDT CPT-53740 Pneumovax 10:42:19 CDT CPT-28553 Influenza High Dose age 65+ 10:42:19 CDT CPT-16807 Administration single or combination vaccine inc oral 13 :18:54 CDT CPT-99828 Influenza High Dose age 65+ 13:18:54 CDT CPT-53666 Venipuncture Draw Fee 11:53:16 CDT CPT-45690 LS spine comp w obliq 11:03:13 CDT CPT-Cryo Cryotherapy 08:27:16 BUILDING TECH CPT-87424 Administration single or combination vaccine inc oral 10 :56:34 CDT CPT-38726 Influenza High Dose age 65+ 10:56:34 CDT
--- OUTSIDE RECORDS SUMMARY | 2018-03-31 19:03 | XMS REPORT | Clinical Summary ---
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 ICD-V58.65 Kerry Castillo MD Hand pain, bilateral [...] ORAL TABS 1 po qd PIOGLITAZONE HCL 09429348296 Active Simon Castillo MD Active GLIMEPIRIDE 4 MG ORAL TABS 1 po BID GLIMEPIRIDE 35504728084 Active Simon Castillo MD Active ASPIRIN EC 81 MG ORAL TBEC 1 po qd ASPIRIN 99691100562 Active Simon Castillo MD Active CLOTRIMAZOLE 1 % EXT CREA Apply to affected area of feet twice daily PRN Rash CLOTRIMAZOLE 07506981893 No Longer Active Simon Castillo MD Active PREDNISONE 5 MG TAB 1 po BID PREDNISONE 82030822399 Active Simon Castillo MD Active FISH OIL 1000 MG CPDR 1 po BID OMEGA-3 FATTY ACIDS 63691296718 Active Simon Castillo MD Active LISINOPRIL 10 MG TABS 1 p qd LISINOPRIL 18615417780 Active Simon Castillo MD Active CLARITIN 10 MG TAB 1 tablet by mouth daily as needed for allergies LORATADINE 02769687788 No Longer Active Simon Castillo MD Active TRIAMCINOLONE ACETONIDE 0.1 % OINT Apply to affected areas TID for up to 2 weeks TRIAMCINOLONE ACETONIDE 72470968289 No Longer Active Simon Castillo MD Active LASIX 20 MG TAB 1 tablet by mouth daily x 2 days FUROSEMIDE 41450411651 No Longer Active Simon Castillo MD Active SULFASALAZINE 500 MG ORAL TBEC 2 tabs BID SULFASALAZINE 85990586079 No Longer Active Nteo Oshea DO Active PREDNISONE 20 MG TAB 2 tabs daily for 3 days, 1 tab daily for 3 days, 1/2 tab daily for 2 days PREDNISONE 40318176885 No Longer Active Jillina Frazell HOUSEMAN Active PREDNISONE 20 MG TAB 1 tablet daily for airway inflammation 02/25 PREDNISONE 86936986820 No Longer Active Jillina Frazell HOUSEMAN Active AZITHROMYCIN 250 MG TABS 2 po qd x 1 day, then 1 po qd x 4 days AZITHROMYCIN 87176790284 No Longer Active Jillina Frazell HOUSEMAN Active HYDROCODONE-ACETAMINOPHEN 5-325 MG TABS 1 tab by mouth 8 hours as needed for pain HYDROCODONE-ACETAMINOPHEN 95382627972 Active Simon Castillo MD Active TRAMADOL HCL 50 MG TABS 1 po q6hr PRN Pain TRAMADOL HCL 69815244365 No Longer Active Simon Castillo MD Active PREDNISONE 5 MG TABS 1 po qod PREDNISONE 00215140395 No Longer Active Simon Castillo MD Active SYMBICORT 160-4.5 MCG/ACT AERO 2 puff BID BUDESONIDE- FORMOTEROL FUMARATE 49849494140 No Longer Active Simon Castillo MD Active FLONASE 50 MCG/ACT SUSP 2 puffs in each nostril daily FLUTICASONE PROPIONATE 58158944288 No Longer Active Simon Castillo MD Active PREDNISONE 20 MG TAB 2 tabs daily for 5 days, then 1 daily for 5 days PREDNISONE 33835030695 No Longer Active Simon Castillo MD Active PREDNISONE 20 MG TAB 2 tabs daily for 5 days, then 1 daily for 5 days, then 0.5 for 4 days PREDNISONE 35616626913 No Longer Active Simon Castillo MD Active PREDNISONE 20 MG TAB 2 tabs daily for 3 days, 1 tab daily for 3 days, 1/2 tab daily for 2 days PREDNISONE 90571867869 No Longer Active Simon Castillo MD Active AZITHROMYCIN 250 MG TABS 2 po qd x 1 day, then 1 po qd x 4 days AZITHROMYCIN 49246078129 No Longer Active Simon Castillo MD Active CARVEDILOL 6.25 MG TABS 1 po BID CARVEDILOL 44672425098 Active Simon Castillo MD Active LISINOPRIL-HYDROCHLOROTHIAZIDE 20-12.5 MG TABS 1/2 tab by mouth daily LISINOPRIL-HYDROCHLOROTHIAZIDE 43811579089 No Longer Active Simon Castillo MD Active TRAMADOL HCL 50 MG TABS 1-2 tablets every 6 hours as needed for pain TRAMADOL HCL 91937150535 Active Giles Tatum APRN Active PREDNISONE 5 MG TAB Take one po qod PREDNISONE 11107864278 No Longer Active Simon Castillo MD Active GLYBURIDE 5 MG TAB Take one by mouth daily GLYBURIDE 28373659601 No Longer Active Simon Castillo MD Active LEVAQUIN 750 MG TABS 1 po qod x 5 doses LEVOFLOXACIN 72658373086 No Longer Active Simon Castillo MD Active CETIRIZINE HCL 10 MG TABS 1 po qd as needed for allergies CETIRIZINE HCL 39012775489 No Longer Active Simon Castillo MD Active BILBERRY CAPS 1 tab daily BILBERRY (VACCINIUM MYRTILLUS) CAPS 48799557856 Active Simon Castillo MD Active ATENOLOL 50 MG TABS Take one by mouth daily ATENOLOL 63382540726 No Longer Active Simon Castillo MD Active FLONASE 50 MCG/ACT SUSP 2 puffs in each nostril daily FLUTICASONE PROPIONATE 53448324136 No Longer Active Simon Castillo MD Active GLYBURIDE 5 MG TAB Take one by mouth daily GLYBURIDE 59978961815 No Longer Active Simon Castillo MD Active SYMBICORT 80-4.5 MCG/ACT AERO 2 puffs twice a day BUDESONIDE-FORMOTEROL FUMARATE 88849109513 No Longer Active Simon Castillo MD Active PREDNISONE 20 MG TAB 2 tabs daily for 4 days, 1 tab daily for 4 days, 1/2 tab daily for 4 days PREDNISONE 93066834867 No Longer Active Simon Castillo MD Active AMOXICILLIN 500 MG CAPS 2 po BID x 10 days AMOXICILLIN 35012966764 No Longer Active Simon Castillo MD Active METFORMIN HCL 1000 MG TABS 1 by mounth twice a day METFORMIN HCL 38722792974 No Longer Active Simon Castillo MD Active LUTEIN-ZEAXANTHIN 6-1 MG TABS Take 2 by mouth daily LUTEIN-ZEAXANTHIN 35408561501 Active Simon Castillo MD Active IBUPROFEN 800 MG TABS Take 1 tab every 6 hrs prn IBUPROFEN 17622997447 No Longer Active Simon Castillo MD Active GLYBURIDE 2.5 MG TABS Take one by mouth daily GLYBURIDE 94854335860 No Longer Active Simon Castillo MD Active LANCETS MISC 2 qd LANCETS 43832247135 Active Pamela Conde Active ACACIA CONTOUR TEST STRP Use with testing twice daily GLUCOSE BLOOD 45072740977 Active Simon Castillo MD Active GLYBURIDE 2.5 MG TABS Take one by mouth daily GLYBURIDE 2.5 MG TABS 494017 GLYBURIDE Inactive PREDNISONE 20 MG TAB 2 tabs daily for 4 days, 1 tab daily for 4 days, 1/2 tab daily for 4 days PREDNISONE 20 MG TAB 085430 PREDNISONE Inactive SYMBICORT 80-4.5 MCG/ACT AERO 2 puffs twice a day SYMBICORT 80-4.5 MCG/ACT AERO BUDESONIDE-FORMOTEROL FUMARATE Inactive FLONASE 50 MCG/ACT SUSP 2 puffs in each nostril daily FLONASE 50 MCG/ACT SUSP 1115808 FLUTICASONE PROPIONATE Inactive ATENOLOL 50 MG TABS Take one by mouth daily ATENOLOL 50 MG TABS 999413 ATENOLOL Inactive CETIRIZINE HCL 10 MG TABS 1 po qd as needed for allergies CETIRIZINE HCL 10 MG TABS 9906016 CETIRIZINE HCL Inactive LEVAQUIN 750 MG TABS 1 po qod x 5 doses LEVAQUIN 750 MG TABS 809175 LEVOFLOXACIN Inactive GLYBURIDE 5 MG TAB Take one by mouth daily GLYBURIDE 5 MG TAB 638235 GLYBURIDE Inactive PREDNISONE 5 MG TAB Take one po qod PREDNISONE 5 MG TAB 401702 PREDNISONE Inactive PREDNISONE 20 MG TAB 2 tabs daily for 5 days, then 1 daily for 5 days PREDNISONE 20 MG TAB 297790 PREDNISONE Inactive FLONASE 50 MCG/ACT SUSP 2 puffs in each nostril daily FLONASE 50 MCG/ACT SUSP 3300538 FLUTICASONE PROPIONATE Inactive SYMBICORT 160-4.5 MCG/ACT AERO 2 puff BID SYMBICORT 160-4.5 MCG/ACT AERO BUDESONIDE-FORMOTEROL FUMARATE Inactive PREDNISONE 5 MG TABS 1 po qod PREDNISONE 5 MG TABS 313431 PREDNISONE Inactive PREDNISONE 20 MG TAB 1 tablet daily for airway inflammation 02/25 PREDNISONE 20 MG TAB 957951 PREDNISONE Inactive SULFASALAZINE 500 MG ORAL TBEC 2 tabs BID SULFASALAZINE 500 MG ORAL TBEC 271605 SULFASALAZINE Inactive LASIX 20 MG TAB 1 tablet by mouth daily x 2 days LASIX 20 MG TAB 037287 FUROSEMIDE Inactive CLARITIN 10 MG TAB 1 tablet by mouth daily as needed for allergies CLARITIN 10 MG TAB 654296 LORATADINE Inactive CLOTRIMAZOLE 1 % EXT CREA Apply to affected area of feet twice daily PRN Rash CLOTRIMAZOLE 1 % EXT CREA 865998 CLOTRIMAZOLE Inactive AMOXICILLIN 500 MG CAPS 2 po BID x 10 days AMOXICILLIN 500 MG CAPS 272641 AMOXICILLIN Inactive GLYBURIDE 5 MG TAB Take one by mouth daily GLYBURIDE 5 MG TAB 266993 GLYBURIDE Inactive AZITHROMYCIN 250 MG TABS 2 po qd x 1 day, then 1 po qd x 4 days AZITHROMYCIN 250 MG TABS 2259853 AZITHROMYCIN Inactive PREDNISONE 20 MG TAB 2 tabs daily for 3 days, 1 tab daily for 3 days, 1/2 tab daily for 2 days PREDNISONE 20 MG TAB 103998 PREDNISONE Inactive PREDNISONE 20 MG TAB 2 tabs daily for 5 days, then 1 daily for 5 days, then 0.5 for 4 days PREDNISONE 20 MG TAB 563557 PREDNISONE Inactive AZITHROMYCIN 250 MG TABS 2 po qd x 1 day, then 1 po qd x 4 days AZITHROMYCIN 250 MG TABS 2339281 AZITHROMYCIN Inactive PREDNISONE 20 MG TAB 2 tabs daily for 3 days, 1 tab daily for 3 days, 1/2 tab daily for 2 days PREDNISONE 20 MG TAB 558579 PREDNISONE Inactive TRIAMCINOLONE ACETONIDE 0.1 % OINT Apply to affected areas TID for up to 2 weeks TRIAMCINOLONE ACETONIDE 0.1 % OINT 1234904 TRIAMCINOLONE ACETONIDE Inactive Immunizations Vaccine Administration Date [...] Panel - Chemistry cholesterol, serum 126 mg/dL 085-689 1770/02/07 triglyceride, serum, fasting 83 mg/dL 30-200 HDL cholesterol, serum 70 mg/dL 32-96 LDL cholesterol, serum 39 mg/dL 0-130 hemoglobin A1C, blood, as % of total hemoglobin 8.3 % 4.3-6.0 sodium, serum 141 mmol/L 527-112 0043/02/07 carbon dioxide, venous blood 26.0 mmol/L 21.0-32.0 [...] 0.00-1.00 Encounters Code Encounter Date Provider Facility CPT-85844 Level 4 Est. Patient 09:54:08 CDT Simon Castillo MD [facility] CPT-65750 Level 4 Est. Patient 16:11:23 CDT Simon Castillo MD [facility] CPT-24812 Level 4 Est. Patient 09:29:28 SENSITIZED PAPER TESTER Simon Castillo MD [facility] CPT-60138 Level 3 Est. Patient 09:18:25 CDT Simon Castillo MD [facility] CPT-45845 Level 4 Est. Patient 11:51:23 CDT Simon Castillo MD [facility] CPT-42077 Level 4 Est. Patient 14:32:04 CDT Neto Oshea DO [facility] CPT-07298 Level 3 Est. Patient 08:41:43 CDT Giles Tatum [facility] [place] CPT-53647 Level 3 Est. Patient 08:40:53 CDT Giles Tatum [facility] [place] CPT-87944 Level 3 Est. Patient 08:36:52 CDT Giles Tatum [facility] [place] CPT-37389 Level 3 Est. Patient 09:08:44 CDT Giles Salcidoalejandrina HEMPHILL [facility] CPT-14522 Level 4 Est. Patient 09:17:32 SENSITIZED PAPER TESTER Simon Castillo MD [facility] CPT-35143 Level 3 Est. Patient 11:22:22 SENSITIZED PAPER TESTER Simon Castillo MD [facility] CPT-15527 Level 3 Est. Patient 09:02:14 CDT Simon Castillo MD [facility] CPT-64150 Level 4 Est. Patient 08:47:25 CDT Simon Castillo MD [facility] CPT-45521 Level 4 Est. Patient 10:17:25 CDT Simon Castillo MD [facility] CPT-48298 Level 4 Est. Patient 10:10:09 SENSITIZED PAPER TESTER Simon Castillo MD [facility] CPT-98392 Level 4 Est. Patient 11:48:19 CDT Simon Castillo MD [facility] CPT-05592 Level 4 Est. Patient 08:59:29 CDT Simon Castillo MD [facility] CPT-40511 Level 4 Est. Patient 10:52:51 SENSITIZED PAPER TESTER Simon Castillo MD [facility] CPT-51011 Level 4 Est. Patient 11:50:30 CDT Simon Castillo MD [facility] CPT-14464 Level 4 Est. Patient 09:54:46 CDT Simon Castillo MD [facility] CPT-40949 Level 3 Est. Patient 11:10:14 CDT Simon Castillo MD [facility] CPT-15512 Level 4 Est. Patient 09:44:02 CDT Simon Castillo MD [facility] CPT-97473 Level 3 Est. Patient 09:27:48 CDT Simon Castillo MD [facility] CPT-79182 Level 3 Est. Patient 09:58:06 SENSITIZED PAPER TESTER Simon Castillo MD [facility] CPT-73297 Level 3 Est. Patient 09:51:35 CDT Simon Castillo MD [facility] Procedures Code Procedure Name Date Entry Date Standard Description CPT-G0439 Subsequent Annual Wellness Exam 09:41:17 CDT CPT-50476 Lipid - LAB USE ONLY 17:15:33 CDT CPT-47803 HGBA1C - LAB USE ONLY 17:15:33 CDT CPT-87081 CMP - LAB USE ONLY 17:15:33 CDT CPT-32076 Venipuncture Draw Fee 17:15:33 CDT CPT-[facility] Transitional Care Mgmt-High 11:01:28 SENSITIZED PAPER TESTER CPT-24667 First Vx - Ix admin for Medicare patients 17:33:39 CDT CPT-70522 Fluzone High-Dose Intramuscular Suspension 17:33:39 CDT CPT-G0438 Initial Annual Wellness Exam 08:57:30 CDT CPT-33943 Chest 2V Frontal and Lat - XRAY USE ONLY 09:00:14 CDT CPT-57439 Venipuncture Draw Fee 13:33:02 CDT CPT-93812 Bone Density 09:37:49 SENSITIZED PAPER TESTER CPT-04134 Fluzone High Dose 17:20:42 CDT CPT-15158 Prevnar 13 17:20:42 CDT CPT-13012 Administration 2+ single or combination vaccines inc oral 17:20:42 CDT CPT-33710 Administration single or combination vaccine inc oral 17 :20:42 CDT CPT-92190 Hand comp min 3V 09:24:38 CDT CPT-44208 Venipuncture Draw Fee 08:07:29 SENSITIZED PAPER TESTER CPT-46021 Venipuncture Draw Fee 09:02:51 SENSITIZED PAPER TESTER CPT-60831 Venipuncture Draw Fee 12:45:08 SENSITIZED PAPER TESTER CPT-62089 Venipuncture Draw Fee 09:25:31 CDT CPT-G0008 Administration of Influenza Virus Vaccine 14:41:29 CDT CPT-29125 Fluzone High-Dose Intramuscular Suspension 14:41:29 CDT CPT-Cryo Cryotherapy 11:48:20 CDT CPT-73163 EKG Trac and Interp 09:21:58 CDT CPT-23188 Chest 2V Frontal and Lat 09:21:58 CDT CPT-Cryo Cryotherapy 10:54:51 SENSITIZED PAPER TESTER CPT-49867 Administration 2+ single or combination vaccines inc oral 10:42:19 CDT CPT-44123 Administration single or combination vaccine inc oral 10 :42:19 CDT CPT-65730 Pneumovax 10:42:19 CDT CPT-02734 Influenza High Dose age 65+ 10:42:19 CDT CPT-22546 Administration single or combination vaccine inc oral 13 :18:54 CDT CPT-34217 Influenza High Dose age 65+ 13:18:54 CDT CPT-32294 Venipuncture Draw Fee 11:53:16 CDT CPT-39195 LS spine comp w obliq 11:03:13 CDT CPT-Cryo Cryotherapy 08:27:16 SENSITIZED PAPER TESTER CPT-71201 Administration single or combination vaccine inc oral 10 :56:34 CDT CPT-51082 Influenza High Dose age 65+ 10:56:34 CDT
--- OUTSIDE RECORDS SUMMARY | 2018-03-31 19:05 | XMS REPORT | Clinical Summary ---
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 V58.65 Resolved Simon Castillo [...] Rheumatoid arthritis Pharyngitis 462 Active Jillina Frazell [employer] Acute pharyngitis Dyspnea 786.09 Active Jillina Frazell [employer] Other dyspnea and respiratory abnormality Peripheral edema 782.3 Active Jillina Frazell [employer] Edema FH DIABETES ICD-V18.0 Inactive Simon Castillo [...] by mouth daily x 2 days FUROSEMIDE 94062432122 No Longer Active Simon Castillo MD Active SULFASALAZINE 500 MG ORAL TBEC 2 tabs BID SULFASALAZINE 54122565142 No Longer Active Neto Oshea DO Active PREDNISONE 20 MG TAB 2 tabs daily for 3 days, 1 tab daily for 3 days, 1/2 tab daily for 2 days PREDNISONE 35672147124 No Longer Active Jillina Frazell [employer] Active PREDNISONE 20 MG TAB 1 tablet daily for airway inflammation 02/25 PREDNISONE 58481275874 No Longer Active Jillina Frazell [employer] Active CLARITIN 10 MG TAB 1 tablet by mouth daily as needed for allergies LORATADINE 08291754076 Active Jillina Frazell [employer] Active AZITHROMYCIN 250 MG TABS 2 po qd x 1 day, then 1 po qd x 4 days AZITHROMYCIN 44445982109 No Longer Active Jillina Frazell [employer] Active GLIMEPIRIDE 2 MG ORAL TABS 1 po q a.m. GLIMEPIRIDE 15652357578 Active Simon Castillo MD Active HYDROCODONE-ACETAMINOPHEN 5-325 MG TABS 1 tab by mouth 8 hours as needed for pain HYDROCODONE-ACETAMINOPHEN 93245571467 Active Simon Castillo MD Active TRAMADOL HCL 50 MG TABS 1 po q6hr PRN Pain TRAMADOL HCL 92871971200 No Longer Active Simon Castillo MD Active PREDNISONE 5 MG TAB 1-2 tabs daily for rheumatoid arthritis PREDNISONE 01390432940 Active Simon Castillo MD Active PREDNISONE 5 MG TABS 1 po qod PREDNISONE 42877452196 No Longer Active Simon Castillo MD Active SYMBICORT 160-4.5 MCG/ACT AERO 2 puff BID BUDESONIDE- FORMOTEROL FUMARATE 26779616960 No Longer Active Simon Castillo MD Active FLONASE 50 MCG/ACT SUSP 2 puffs in each nostril daily FLUTICASONE PROPIONATE 28570398479 No Longer Active Simon Castillo MD Active PREDNISONE 20 MG TAB 2 tabs daily for 5 days, then 1 daily for 5 days PREDNISONE 07626230467 No Longer Active Simon Castillo MD Active PREDNISONE 20 MG TAB 2 tabs daily for 5 days, then 1 daily for 5 days, then 0.5 for 4 days PREDNISONE 01322606171 No Longer Active Simon Castillo MD Active CLOTRIMAZOLE 1 % EXT CREA Apply to affected area of feet twice daily PRN Rash CLOTRIMAZOLE 58623187075 Active Simon Castillo MD Active PREDNISONE 20 MG TAB 2 tabs daily for 3 days, 1 tab daily for 3 days, 1/2 tab daily for 2 days PREDNISONE 55862412458 No Longer Active Simon Castillo MD Active AZITHROMYCIN 250 MG TABS 2 po qd x 1 day, then 1 po qd x 4 days AZITHROMYCIN 83777034473 No Longer Active Simon Castillo MD Active LISINOPRIL 10 MG TABS 1 tablet by mouth daily LISINOPRIL 50142267563 Active Simon Castillo MD Active CARVEDILOL 6.25 MG TABS 1 po BID CARVEDILOL 68750519799 Active Simon Castillo MD Active LISINOPRIL-HYDROCHLOROTHIAZIDE 20-12.5 MG TABS 1/2 tab by mouth daily LISINOPRIL-HYDROCHLOROTHIAZIDE 48882174378 No Longer Active Simon Castillo MD Active TRAMADOL HCL 50 MG TABS 1-2 tablets every 6 hours as needed for pain TRAMADOL HCL 32236778373 Active Giles Tatum APRN Active PREDNISONE 5 MG TAB Take one po qod PREDNISONE 12088181674 No Longer Active Simon Castillo MD Active GLYBURIDE 5 MG TAB Take one by mouth daily GLYBURIDE 85132770002 No Longer Active Simon Castillo MD Active LEVAQUIN 750 MG TABS 1 po qod x 5 doses LEVOFLOXACIN 49440259922 No Longer Active Simon Castillo MD Active CETIRIZINE HCL 10 MG TABS 1 po qd as needed for allergies CETIRIZINE HCL 47116831498 No Longer Active Simon Castillo MD Active FISH OIL 1000 MG CPDR 1 pill by mouth twice daily for cholesterol OMEGA -3 FATTY ACIDS 09837175719 Active Simon Castillo MD Active BILBERRY CAPS 1 tab daily BILBERRY (VACCINIUM MYRTILLUS) CAPS 97963173153 Active Simon Castillo MD Active ATENOLOL 50 MG TABS Take one by mouth daily ATENOLOL 95607699412 No Longer Active Simon Castillo MD Active FLONASE 50 MCG/ACT SUSP 2 puffs in each nostril daily FLUTICASONE PROPIONATE 31484336445 No Longer Active Simon Castillo MD Active GLYBURIDE 5 MG TAB Take one by mouth daily GLYBURIDE 28753199060 No Longer Active Simon Castillo MD Active SYMBICORT 80-4.5 MCG/ACT AERO 2 puffs twice a day BUDESONIDE-FORMOTEROL FUMARATE 52378834621 No Longer Active Simon Castillo MD Active PREDNISONE 20 MG TAB 2 tabs daily for 4 days, 1 tab daily for 4 days, 1/2 tab daily for 4 days PREDNISONE 56395478820 No Longer Active Simon Castillo MD Active AMOXICILLIN 500 MG CAPS 2 po BID x 10 days AMOXICILLIN 28505375611 No Longer Active Simon Castillo MD Active METFORMIN HCL 1000 MG TABS 1 by mounth twice a day METFORMIN HCL 17146040538 No Longer Active Simon Castillo MD Active LUTEIN-ZEAXANTHIN 6-1 MG TABS Take 2 by mouth daily LUTEIN-ZEAXANTHIN 45221937088 Active Simon Castillo MD Active IBUPROFEN 800 MG TABS Take 1 tab every 6 hrs prn IBUPROFEN 40052688844 No Longer Active Simon Castillo MD Active GLYBURIDE 2.5 MG TABS Take one by mouth daily GLYBURIDE 80150371804 No Longer Active Simon Castillo MD Active LANCETS MISC 2 qd LANCETS 11882448401 Active Pamela Conde Active ACACIA CONTOUR TEST STRP Use with testing twice daily GLUCOSE BLOOD 01566143748 Active Simon Castillo MD Active ACACIA ASPIRIN 325 MG TABS Take one by mouth daily ASPIRIN 97525188083 Active Pamela Conde Active GLYBURIDE 2.5 MG TABS Take one by mouth daily GLYBURIDE 2.5 MG TABS 224274 GLYBURIDE Inactive PREDNISONE 20 MG TAB 2 tabs daily for 4 days, 1 tab daily for 4 days, 1/2 tab daily for 4 days PREDNISONE 20 MG TAB 255969 PREDNISONE Inactive SYMBICORT 80-4.5 MCG/ACT AERO 2 puffs twice a day SYMBICORT 80-4.5 MCG/ACT AERO BUDESONIDE-FORMOTEROL FUMARATE Inactive FLONASE 50 MCG/ACT SUSP 2 puffs in each nostril daily FLONASE 50 MCG/ACT SUSP 569995 FLUTICASONE PROPIONATE Inactive ATENOLOL 50 MG TABS Take one by mouth daily ATENOLOL 50 MG TABS 874425 ATENOLOL Inactive CETIRIZINE HCL 10 MG TABS 1 po qd as needed for allergies CETIRIZINE HCL 10 MG TABS 0598588 CETIRIZINE HCL Inactive LEVAQUIN 750 MG TABS 1 po qod x 5 doses LEVAQUIN 750 MG TABS 353260 LEVOFLOXACIN Inactive GLYBURIDE 5 MG TAB Take one by mouth daily GLYBURIDE 5 MG TAB 432253 GLYBURIDE Inactive PREDNISONE 5 MG TAB Take one po qod PREDNISONE 5 MG TAB 580466 PREDNISONE Inactive PREDNISONE 20 MG TAB 2 tabs daily for 5 days, then 1 daily for 5 days PREDNISONE 20 MG TAB 163519 PREDNISONE Inactive FLONASE 50 MCG/ACT SUSP 2 puffs in each nostril daily FLONASE 50 MCG/ACT SUSP 813523 FLUTICASONE PROPIONATE Inactive SYMBICORT 160-4.5 MCG/ACT AERO 2 puff BID SYMBICORT 160-4.5 MCG/ACT AERO BUDESONIDE-FORMOTEROL FUMARATE Inactive PREDNISONE 5 MG TABS 1 po qod PREDNISONE 5 MG TABS 638338 PREDNISONE Inactive PREDNISONE 20 MG TAB 1 tablet daily for airway inflammation 02/25 PREDNISONE 20 MG TAB 630847 PREDNISONE Inactive SULFASALAZINE 500 MG ORAL TBEC 2 tabs BID SULFASALAZINE 500 MG ORAL TBEC 110185 SULFASALAZINE Inactive LASIX 20 MG TAB 1 tablet by mouth daily x 2 days LASIX 20 MG TAB 195253 FUROSEMIDE Inactive AMOXICILLIN 500 MG CAPS 2 po BID x 10 days AMOXICILLIN 500 MG CAPS 412603 AMOXICILLIN Inactive GLYBURIDE 5 MG TAB Take one by mouth daily GLYBURIDE 5 MG TAB 462030 GLYBURIDE Inactive AZITHROMYCIN 250 MG TABS 2 po qd x 1 day, then 1 po qd x 4 days AZITHROMYCIN 250 MG TABS 0923444 AZITHROMYCIN Inactive PREDNISONE 20 MG TAB 2 tabs daily for 3 days, 1 tab daily for 3 days, 1/2 tab daily for 2 days PREDNISONE 20 MG TAB 629115 PREDNISONE Inactive PREDNISONE 20 MG TAB 2 tabs daily for 5 days, then 1 daily for 5 days, then 0.5 for 4 days PREDNISONE 20 MG TAB 825387 PREDNISONE Inactive AZITHROMYCIN 250 MG TABS 2 po qd x 1 day, then 1 po qd x 4 days AZITHROMYCIN 250 MG TABS 8264735 AZITHROMYCIN Inactive PREDNISONE 20 MG TAB 2 tabs daily for 3 days, 1 tab daily for 3 days, 1/2 tab daily for 2 days PREDNISONE 20 MG TAB 240826 PREDNISONE Inactive Immunizations Vaccine Administration Date Value Standard Description pneumococcal immunization administered Pneumovax 23 [CVX33] pneumococcal polysaccharide vaccine, 23 valent Vital Signs Date Name Value Unit Range Description blood pressure, diastolic - 8462-4 71 mm[Hg] BP csatillo blood pressure, systolic - 8480-6 138 mm[Hg] [...] Panel - Chemistry sodium, serum 132 mmol/L 089-613 2936/10/26 carbon dioxide, venous blood 22.8 mmol/L 21.0-32.0 potassium, serum 5.4 mmol/L 3.5-5.2 chloride, serum 98 mmol/L 98-107 blood glucose 424 mg/dL 65-110 urea nitrogen, blood 40 mg/dL 7-18 creatinine, serum 2.26 mg/dL 0.55-1.30 alanine aminotransferase (SGPT), serum 29 U/L -78 aspartate aminotransferase (SGOT), serum 24 U/L 15-37 calcium, serum 8.6 mg/dL 8.5-10.1 bilirubin, serum, total 0.60 mg/dL 0.00-1.00 sodium, serum 137 mmol/L 702-850 1730/06/06 carbon dioxide, venous blood 24.9 mmol/L 21.0-32.0 [...] % 11.6-14.8 platelet count 210 10^3/MM^3 10*3/mm3 316-752 2523/10/26 leukocyte count, blood 10.3 10^3/MM^3 10*3/mm3 4.6-10.2 [...] Panel - Chemistry sodium, serum 139 mmol/L 864-935 7361/03/17 carbon dioxide, venous blood 29.0 mmol/L 21.0-32.0 [...] Rate - Chemistry sodium, serum 136 mmol/L 378-221 7048/09/18 carbon dioxide, venous blood 24.3 mmol/L 21.0-32.0 [...] HGBA1C - Chemistry sodium, serum 139 mmol/L 076-293 2306/07/09 potassium, serum 5.4 mmol/L 3.5-5.2 chloride, serum [...] 8.5 % 4.3-6.0 sodium, serum 137 mmol/L 330-288 7721/02/12 potassium, serum 5.1 mmol/L 3.5-5.2 chloride, serum 103 mmol/L 98-107 carbon dioxide, venous blood 24.4 mmol/L 21.0-32.0 blood glucose 261 mg/dL 65-110 calcium, serum 9.0 mg/dL 8.5-10.1 urea nitrogen, blood 44 mg/dL 7-18 creatinine, serum 2.37 mg/dL 0.55-1.30 Lab Report: Lipid Panel - Chemistry cholesterol, serum 139 mg/dL 799-073 7753/09/10 triglyceride, serum, fasting 176 mg/dL 30-200 HDL cholesterol, serum 45 mg/dL 32-96 LDL cholesterol, serum 59 mg/dL 0-130 Lab Report: MICROALBUMIN - Chemistry albumin/creatinine ratio, urine 30 - 300 mg/g mg/g{creat} 0-29 Lab Report: MICROALBUMIN - Lab microalbumin, urine 30 0-19 Lab Report: Uric Acid - Chemistry uric acid, serum 6.3 mg/dL 2.6-7.2 Encounters Code Encounter Date Provider Facility CPT-07698 Level 4 Est. Patient 11:51:23 CDT Simon Castillo MD [facility] CPT-45362 Level 4 Est. Patient 14:32:04 CDT Neto Oshea DO [facility] CPT-71964 Level 3 Est. Patient 08:41:43 CDT Giles Tatum [facility] CPT-42057 Level 3 Est. Patient 08:40:53 CDT Giles Tatum [facility] CPT-45613 Level 3 Est. Patient 08:36:52 CDT Giles Nashtico [facility] CPT-11955 Level 3 Est. Patient 09:08:44 CDT Giles Nashtico [facility] CPT-33428 Level 4 Est. 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 Patient 09:02:14 CDT Simon Castillo MD [facility] CPT-76838 Level 4 Est. Patient 08:47:25 CDT Simon Castillo MD [facility] CPT-59140 Level 4 Est. Patient 10:17:25 CDT Simon Castillo MD [facility] CPT-62339 Level 4 Est. 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 Patient 11:48:19 CDT Simon Castillo MD [facility] CPT-14660 Level 4 Est. Patient 08:59:29 CDT Simon Castillo MD [facility] CPT-95043 Level 4 Est. 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 Patient 11:50:30 CDT Simon Castillo MD [facility] CPT-68982 Level 4 Est. Patient 09:54:46 CDT Simon Castillo MD [facility] CPT-82882 Level 3 Est. Patient 11:10:14 CDT Simon Castillo MD [facility] CPT-06158 Level 4 Est. Patient 09:44:02 CDT Simon Castillo MD [facility] CPT-43592 Level 3 Est. Patient 09:27:48 CDT Simon Castillo MD [facility] CPT-20289 Level 3 Est. 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 Patient 09:51:35 CDT Simon Castillo MD [facility] Procedures Code Procedure Name Date Entry Date Standard Description CPT-G0438 Initial Annual Wellness Exam 08:57:30 CDT CPT-46010 Chest 2V Frontal and Lat - XRAY USE ONLY 09:00:14 CDT CPT-93889 Venipuncture Draw Fee 13:33:02 CDT CPT-15835 Bone Density 09:37:49 ARC WELDING MACHINE OPERATOR CPT-12221 Fluzone High Dose 17:20:42 CDT CPT-43254 Prevnar 13 17:20:42 CDT CPT-89964 Administration 2+ single or combination vaccines inc oral 17:20:42 CDT CPT-70721 Administration single or combination vaccine inc oral 17 :20:42 CDT CPT-05466 Hand comp min 3V 09:24:38 CDT CPT-28532 Venipuncture Draw Fee 08:07:29 ARC WELDING MACHINE OPERATOR CPT-03352 Venipuncture Draw Fee 09:02:51 ARC WELDING MACHINE OPERATOR CPT-69968 Venipuncture Draw Fee 12:45:08 ARC WELDING MACHINE OPERATOR CPT-08545 Venipuncture Draw Fee 09:25:31 CDT CPT-G0008 Administration of Influenza Virus Vaccine 14:41:29 CDT CPT-95923 Fluzone High-Dose Intramuscular Suspension 14:41:29 CDT CPT-Cryo Cryotherapy 11:48:20 CDT CPT-36023 EKG Trac and Interp 09:21:58 CDT CPT-02127 Chest 2V Frontal and Lat 09:21:58 CDT CPT-Cryo Cryotherapy 10:54:51 ARC WELDING MACHINE OPERATOR CPT-86304 Administration 2+ single or combination vaccines inc oral 10:42:19 CDT CPT-08974 Administration single or combination vaccine inc oral 10 :42:19 CDT CPT-93273 Pneumovax 10:42:19 CDT CPT-22494 Influenza High Dose age 65+ 10:42:19 CDT CPT-97749 Administration single or combination vaccine inc oral 13 :18:54 CDT CPT-70131 Influenza High Dose age 65+ 13:18:54 CDT CPT-92238 Venipuncture Draw Fee 11:53:16 CDT CPT-89543 LS spine comp w obliq 11:03:13 CDT CPT-Cryo Cryotherapy 08:27:16 ARC WELDING MACHINE OPERATOR CPT-74049 Administration single or combination vaccine inc oral 10 :56:34 CDT CPT-36844 Influenza High Dose age 65+ 10:56:34 CDT
--- OUTSIDE RECORDS SUMMARY | 2018-03-31 19:09 | XMS REPORT | Clinical Summary ---
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 Kerry Castillo MD Pharyngitis ICD-462 Kerry Casitllo MD Dyspnea ICD-786.09 Kerry Castillo MD 2016 Peripheral edema ICD-782.3 Kerry Castillo MD Pneumonia, right lower lobe ICD-486 Kerry Castillo MD Medication List Medication Instructions Start Date Stop Date Generic Name NDC Status Provider Patient Instruction GLIMEPIRIDE 4 MG ORAL TABS 1 po BID GLIMEPIRIDE 19106966195 Active Simon Castillo MD Active ASPIRIN EC 81 MG ORAL TBEC 1 po qd ASPIRIN 01886707405 Active Simon Castillo MD Active CLOTRIMAZOLE 1 % EXT CREA Apply to affected area of feet twice daily PRN Rash CLOTRIMAZOLE 08976762448 No Longer Active Simon Castillo MD Active PREDNISONE 5 MG TAB 1 po BID PREDNISONE 84173151421 Active Simon Castillo MD Active FISH OIL 1000 MG CPDR 1 po BID OMEGA-3 FATTY ACIDS 04838887748 Active Simon Castillo MD Active LISINOPRIL 10 MG TABS 1 p qd LISINOPRIL 15146079662 Active Simon Castillo MD Active CLARITIN 10 MG TAB 1 tablet by mouth daily as needed for allergies LORATADINE 55534685789 No Longer Active Simon Castillo MD Active TRIAMCINOLONE ACETONIDE 0.1 % OINT Apply to affected areas TID for up to 2 weeks TRIAMCINOLONE ACETONIDE 49845048334 No Longer Active Simon Castillo MD Active LASIX 20 MG TAB 1 tablet by mouth daily x 2 days FUROSEMIDE 18881143108 No Longer Active Simon Castillo MD Active SULFASALAZINE 500 MG ORAL TBEC 2 tabs BID SULFASALAZINE 50499948245 No Longer Active Neto Oshea DO Active PREDNISONE 20 MG TAB 2 tabs daily for 3 days, 1 tab daily for 3 days, 1/2 tab daily for 2 days PREDNISONE 88056842924 No Longer Active Jillina Frazell HANDBOOK WRITER Active PREDNISONE 20 MG TAB 1 tablet daily for airway inflammation 02/25 PREDNISONE 45148033160 No Longer Active Jillina Frazell HANDBOOK WRITER Active AZITHROMYCIN 250 MG TABS 2 po qd x 1 day, then 1 po qd x 4 days AZITHROMYCIN 00320841157 No Longer Active Jillina Frazell HANDBOOK WRITER Active HYDROCODONE-ACETAMINOPHEN 5-325 MG TABS 1 tab by mouth 8 hours as needed for pain HYDROCODONE-ACETAMINOPHEN 01895714015 Active Simon Castillo MD Active TRAMADOL HCL 50 MG TABS 1 po q6hr PRN Pain TRAMADOL HCL 54895834632 No Longer Active Simon Castillo MD Active PREDNISONE 5 MG TABS 1 po qod PREDNISONE 27725208757 No Longer Active Simon Castillo MD Active SYMBICORT 160-4.5 MCG/ACT AERO 2 puff BID BUDESONIDE- FORMOTEROL FUMARATE 55355444865 No Longer Active Simon Castillo MD Active FLONASE 50 MCG/ACT SUSP 2 puffs in each nostril daily FLUTICASONE PROPIONATE 11175124209 No Longer Active Simon Castillo MD Active PREDNISONE 20 MG TAB 2 tabs daily for 5 days, then 1 daily for 5 days PREDNISONE 08620169637 No Longer Active Simon Castillo MD Active PREDNISONE 20 MG TAB 2 tabs daily for 5 days, then 1 daily for 5 days, then 0.5 for 4 days PREDNISONE 48855777022 No Longer Active Simon Castillo MD Active PREDNISONE 20 MG TAB 2 tabs daily for 3 days, 1 tab daily for 3 days, 1/2 tab daily for 2 days PREDNISONE 96541133561 No Longer Active Simon Castillo MD Active AZITHROMYCIN 250 MG TABS 2 po qd x 1 day, then 1 po qd x 4 days AZITHROMYCIN 36565204029 No Longer Active Simon Castillo MD Active CARVEDILOL 6.25 MG TABS 1 po BID CARVEDILOL 96933989259 Active Simon Castillo MD Active LISINOPRIL-HYDROCHLOROTHIAZIDE 20-12.5 MG TABS 1/2 tab by mouth daily LISINOPRIL-HYDROCHLOROTHIAZIDE 39110992136 No Longer Active Simon Castillo MD Active TRAMADOL HCL 50 MG TABS 1-2 tablets every 6 hours as needed for pain TRAMADOL HCL 48054659761 Active Jillina Frazell HANDBOOK WRITER Active PREDNISONE 5 MG TAB Take one po qod PREDNISONE 54144283695 No Longer Active Simon Castillo MD Active GLYBURIDE 5 MG TAB Take one by mouth daily GLYBURIDE 46862854046 No Longer Active Simon Castillo MD Active LEVAQUIN 750 MG TABS 1 po qod x 5 doses LEVOFLOXACIN 55266770575 No Longer Active Simon Castillo MD Active CETIRIZINE HCL 10 MG TABS 1 po qd as needed for allergies CETIRIZINE HCL 45548001079 No Longer Active Simon Castillo MD Active BILBERRY CAPS 1 tab daily BILBERRY (VACCINIUM MYRTILLUS) CAPS 57085121220 Active Simon Castillo MD Active ATENOLOL 50 MG TABS Take one by mouth daily ATENOLOL 27811251296 No Longer Active Simon Castillo MD Active FLONASE 50 MCG/ACT SUSP 2 puffs in each nostril daily FLUTICASONE PROPIONATE 86298775463 No Longer Active Simon Castillo MD Active GLYBURIDE 5 MG TAB Take one by mouth daily GLYBURIDE 24590752311 No Longer Active Simon Castillo MD Active SYMBICORT 80-4.5 MCG/ACT AERO 2 puffs twice a day BUDESONIDE-FORMOTEROL FUMARATE 12722262261 No Longer Active Simon Castillo MD Active PREDNISONE 20 MG TAB 2 tabs daily for 4 days, 1 tab daily for 4 days, 1/2 tab daily for 4 days PREDNISONE 21837727511 No Longer Active Simon Castillo MD Active AMOXICILLIN 500 MG CAPS 2 po BID x 10 days AMOXICILLIN 94715348286 No Longer Active Simon Castillo MD Active METFORMIN HCL 1000 MG TABS [facility] twice a day METFORMIN HCL 23046353961 No Longer Active Simon Castillo MD Active LUTEIN-ZEAXANTHIN 6-1 MG TABS Take 2 by mouth daily LUTEIN-ZEAXANTHIN 04574733159 Active Simon Castillo MD Active IBUPROFEN 800 MG TABS Take 1 tab every 6 hrs prn IBUPROFEN 70460968382 No Longer Active Simon Castillo MD Active GLYBURIDE 2.5 MG TABS Take one by mouth daily GLYBURIDE 22501267139 No Longer Active Simon Castillo MD Active LANCETS MISC 2 qd LANCETS 65337291215 Active Pamela Conde Active ACACIA CONTOUR TEST STRP Use with testing twice daily GLUCOSE BLOOD 87606910956 Active Simon Castillo MD Active GLYBURIDE 2.5 MG TABS Take one by mouth daily GLYBURIDE 2.5 MG TABS 619173 GLYBURIDE Inactive PREDNISONE 20 MG TAB 2 tabs daily for 4 days, 1 tab daily for 4 days, 1/2 tab daily for 4 days PREDNISONE 20 MG TAB 141219 PREDNISONE Inactive SYMBICORT 80-4.5 MCG/ACT AERO 2 puffs twice a day SYMBICORT 80-4.5 MCG/ACT AERO BUDESONIDE-FORMOTEROL FUMARATE Inactive FLONASE 50 MCG/ACT SUSP 2 puffs in each nostril daily FLONASE 50 MCG/ACT SUSP FLUTICASONE PROPIONATE Inactive ATENOLOL 50 MG TABS Take one by mouth daily ATENOLOL 50 MG TABS 167905 ATENOLOL Inactive CETIRIZINE HCL 10 MG TABS 1 po qd as needed for allergies CETIRIZINE HCL 10 MG TABS 4168533 CETIRIZINE HCL Inactive LEVAQUIN 750 MG TABS 1 po qod x 5 doses LEVAQUIN 750 MG TABS 708693 LEVOFLOXACIN Inactive GLYBURIDE 5 MG TAB Take one by mouth daily GLYBURIDE 5 MG TAB 333547 GLYBURIDE Inactive PREDNISONE 5 MG TAB Take one po qod PREDNISONE 5 MG TAB 523028 PREDNISONE Inactive PREDNISONE 20 MG TAB 2 tabs daily for 5 days, then 1 daily for 5 days PREDNISONE 20 MG TAB 975348 PREDNISONE Inactive FLONASE 50 MCG/ACT SUSP 2 puffs in each nostril daily FLONASE 50 MCG/ACT SUSP FLUTICASONE PROPIONATE Inactive SYMBICORT 160-4.5 MCG/ACT AERO 2 puff BID SYMBICORT 160-4.5 MCG/ACT AERO BUDESONIDE-FORMOTEROL FUMARATE Inactive PREDNISONE 5 MG TABS 1 po qod PREDNISONE 5 MG TABS 066204 PREDNISONE Inactive PREDNISONE 20 MG TAB 1 tablet daily for airway inflammation 02/25 PREDNISONE 20 MG TAB 496109 PREDNISONE Inactive SULFASALAZINE 500 MG ORAL TBEC 2 tabs BID SULFASALAZINE 500 MG ORAL TBEC 720698 SULFASALAZINE Inactive LASIX 20 MG TAB 1 tablet by mouth daily x 2 days LASIX 20 MG TAB 236311 FUROSEMIDE Inactive CLARITIN 10 MG TAB 1 tablet by mouth daily as needed for allergies CLARITIN 10 MG TAB 719794 LORATADINE Inactive CLOTRIMAZOLE 1 % EXT CREA Apply to affected area of feet twice daily PRN Rash CLOTRIMAZOLE 1 % EXT CREA 246875 CLOTRIMAZOLE Inactive AMOXICILLIN 500 MG CAPS 2 po BID x 10 days AMOXICILLIN 500 MG CAPS 498360 AMOXICILLIN Inactive GLYBURIDE 5 MG TAB Take one by mouth daily GLYBURIDE 5 MG TAB 511962 GLYBURIDE Inactive AZITHROMYCIN 250 MG TABS 2 po qd x 1 day, then 1 po qd x 4 days AZITHROMYCIN 250 MG TABS 1249044 AZITHROMYCIN Inactive PREDNISONE 20 MG TAB 2 tabs daily for 3 days, 1 tab daily for 3 days, 1/2 tab daily for 2 days PREDNISONE 20 MG TAB 045105 PREDNISONE Inactive PREDNISONE 20 MG TAB 2 tabs daily for 5 days, then 1 daily for 5 days, then 0.5 for 4 days PREDNISONE 20 MG TAB 572573 PREDNISONE Inactive AZITHROMYCIN 250 MG TABS 2 po qd x 1 day, then 1 po qd x 4 days AZITHROMYCIN 250 MG TABS 9127401 AZITHROMYCIN Inactive PREDNISONE 20 MG TAB 2 tabs daily for 3 days, 1 tab daily for 3 days, 1/2 tab daily for 2 days PREDNISONE 20 MG TAB 554157 PREDNISONE Inactive TRIAMCINOLONE ACETONIDE 0.1 % OINT Apply to affected areas TID for up to 2 weeks TRIAMCINOLONE ACETONIDE 0.1 % OINT 8911929 TRIAMCINOLONE ACETONIDE Inactive Immunizations Vaccine Administration Date [...] Panel - Chemistry sodium, serum 137 mmol/L 005-810 1162/06/06 carbon dioxide, venous blood 24.9 mmol/L 21.0-32.0 [...] Panel - Chemistry cholesterol, serum 126 mg/dL 214-003 0255/02/07 triglyceride, serum, fasting 83 mg/dL 30-200 HDL cholesterol, serum 70 mg/dL 32-96 LDL cholesterol, serum 39 mg/dL 0-130 hemoglobin A1C, blood, as % of total hemoglobin 8.3 % 4.3-6.0 sodium, serum 141 mmol/L 768-961 6660/02/07 carbon dioxide, venous blood 26.0 mmol/L 21.0-32.0 [...] 2.6-7.2 Encounters Code Encounter Date Provider Facility CPT-69807 Level 4 Est. Patient 16:11:23 CDT Simon Castillo MD [facility] CPT-01682 Level 4 Est. Patient 09:29:28 [employer] Simon Castillo MD [facility] CPT-06831 Level 3 Est. Patient 09:18:25 CDT Simon Castillo MD [facility] CPT-71491 Level 4 Est. Patient 11:51:23 CDT Simon Castillo MD [facility] CPT-37418 Level 4 Est. Patient 14:32:04 CDT Neto Oshea DO [facility] CPT-64599 Level 3 Est. Patient 08:41:43 CDT Giles Tatum [facility] CPT-28288 Level 3 Est. Patient 08:40:53 CDT Giles Tatum [facility] CPT-44533 Level 3 Est. Patient 08:36:52 CDT Giles Salcidol [facility] CPT-04857 Level 3 Est. Patient 09:08:44 CDT Giles Salcidol [facility] CPT-90942 Level 4 Est. Patient 09:17:32 [employer] Simon Castillo MD [facility] CPT-55721 Level 3 Est. Patient 11:22:22 [employer] Simon Castillo MD [facility] CPT-59919 Level 3 Est. Patient 09:02:14 CDT Simon Castillo MD [facility] CPT-17026 Level 4 Est. Patient 08:47:25 CDT Simon Castillo MD [facility] CPT-23522 Level 4 Est. Patient 10:17:25 CDT Siomn Castillo MD [facility] CPT-97300 Level 4 Est. Patient 10:10:09 [employer] Simon Castillo MD [facility] CPT-23746 Level 4 Est. Patient 11:48:19 CDT Simon Castillo MD [facility] CPT-45819 Level 4 Est. Patient 08:59:29 CDT Simon Castillo MD [facility] CPT-35538 Level 4 Est. Patient 10:52:51 [employer] Simon Castillo MD [facility] CPT-94998 Level 4 Est. Patient 11:50:30 CDT Simon Castillo MD [facility] CPT-44409 Level 4 Est. Patient 09:54:46 CDT Simon Castillo MD [facility] CPT-62556 Level 3 Est. Patient 11:10:14 CDT Simon Castillo MD [facility] CPT-44653 Level 4 Est. Patient 09:44:02 CDT Simon Castillo MD [facility] CPT-27410 Level 3 Est. Patient 09:27:48 CDT Simon Castillo MD [facility] CPT-88576 Level 3 Est. Patient 09:58:06 [employer] Simon Castillo MD [facility] CPT-57980 Level 3 Est. Patient 09:51:35 CDT Simon Castillo MD [facility] Procedures Code Procedure Name Date Entry Date Standard Description CPT-30225 Lipid - LAB USE ONLY 17:15:33 CDT CPT-23371 HGBA1C - LAB USE ONLY 17:15:33 CDT CPT-13432 CMP - LAB USE ONLY 17:15:33 CDT CPT-93773 Venipuncture Draw Fee 17:15:33 CDT CPT-[facility] Transitional Care Mgmt-High 11:01:28 [employer] CPT-54155 First Vx - Ix admin for Medicare patients 17:33:39 CDT CPT-31122 Fluzone High-Dose Intramuscular Suspension 17:33:39 CDT CPT-G0438 Initial Annual Wellness Exam 08:57:30 CDT CPT-22984 Chest 2V Frontal and Lat - XRAY USE ONLY 09:00:14 CDT CPT-68825 Venipuncture Draw Fee 13:33:02 CDT CPT-52364 Bone Density 09:37:49 [employer] CPT-26666 Fluzone High Dose 17:20:42 CDT CPT-60274 Prevnar 13 17:20:42 CDT CPT-71402 Administration 2+ single or combination vaccines inc oral 17:20:42 CDT CPT-98520 Administration single or combination vaccine inc oral 17 :20:42 CDT CPT-70147 Hand comp min 3V 09:24:38 CDT CPT-43150 Venipuncture Draw Fee 08:07:29 [employer] CPT-65580 Venipuncture Draw Fee 09:02:51 [employer] CPT-85731 Venipuncture Draw Fee 12:45:08 [employer] CPT-91553 Venipuncture Draw Fee 09:25:31 CDT CPT-G0008 Administration of Influenza Virus Vaccine 14:41:29 CDT CPT-72315 Fluzone High-Dose Intramuscular Suspension 14:41:29 CDT CPT-Cryo Cryotherapy 11:48:20 CDT CPT-19020 EKG Trac and Interp 09:21:58 CDT CPT-82475 Chest 2V Frontal and Lat 09:21:58 CDT CPT-Cryo Cryotherapy 10:54:51 [employer] CPT-60901 Administration 2+ single or combination vaccines inc oral 10:42:19 CDT CPT-55899 Administration single or combination vaccine inc oral 10 :42:19 CDT CPT-16775 Pneumovax 10:42:19 CDT CPT-56149 Influenza High Dose age 65+ 10:42:19 CDT CPT-13819 Administration single or combination vaccine inc oral 13 :18:54 CDT CPT-33519 Influenza High Dose age 65+ 13:18:54 CDT CPT-57597 Venipuncture Draw Fee 11:53:16 CDT CPT-02186 LS spine comp w obliq 11:03:13 CDT CPT-Cryo Cryotherapy 08:27:16 [employer] CPT-94620 Administration single or combination vaccine inc oral 10 :56:34 CDT CPT-27767 Influenza High Dose age 65+ 10:56:34 CDT
--- OUTSIDE RECORDS SUMMARY | 2018-03-31 19:10 | XMS REPORT | Clinical Summary ---
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 V58.65 Resolved Simon Castillo MD Long-term (current) [...] ICD-729.5 Inactive Simon Castillo MD Steroid use, physics technical officer ICD-V58.65 Inactive Simon Castillo MD Hand pain, [...] MG ORAL TBEC 1 po qd ASPIRIN 01363485257 Active Simon Castillo MD Active CLOTRIMAZOLE 1 % EXT CREA Apply to affected area of feet twice daily PRN Rash CLOTRIMAZOLE 86689923256 No Longer Active Simon Castillo MD Active PREDNISONE 5 MG TAB 1 po BID PREDNISONE 13663769227 Active Simon Castillo MD Active GLIMEPIRIDE 2 MG ORAL TABS 1 po BID GLIMEPIRIDE 78626560018 Active Simon Castillo MD Active FISH OIL 1000 MG CPDR 1 po BID OMEGA-3 FATTY ACIDS 22588843888 Active Simon Castillo MD Active LISINOPRIL 10 MG TABS 1 p qd LISINOPRIL 42417712271 Active Simon Castillo MD Active CLARITIN 10 MG TAB 1 tablet by mouth daily as needed for allergies LORATADINE 34460984022 No Longer Active Simon Castillo MD Active TRIAMCINOLONE ACETONIDE 0.1 % OINT Apply to affected areas TID for up to 2 weeks TRIAMCINOLONE ACETONIDE 25207533245 No Longer Active Simon Castillo MD Active LASIX 20 MG TAB 1 tablet by mouth daily x 2 days FUROSEMIDE 86103969022 No Longer Active Simon Castillo MD Active SULFASALAZINE 500 MG ORAL TBEC 2 tabs BID SULFASALAZINE 24869494877 No Longer Active Neto Oshea DO Active PREDNISONE 20 MG TAB 2 tabs daily for 3 days, 1 tab daily for 3 days, 1/2 tab daily for 2 days PREDNISONE 57626740630 No Longer Active Jillina Frazell METALIZER Active PREDNISONE 20 MG TAB 1 tablet daily for airway inflammation 02/25 PREDNISONE 25016018298 No Longer Active Jillina Frazell METALIZER Active AZITHROMYCIN 250 MG TABS 2 po qd x 1 day, then 1 po qd x 4 days AZITHROMYCIN 81484812912 No Longer Active Jillina Frazell METALIZER Active HYDROCODONE-ACETAMINOPHEN 5-325 MG TABS 1 tab by mouth 8 hours as needed for pain HYDROCODONE-ACETAMINOPHEN 40127666826 Active Simon Castillo MD Active TRAMADOL HCL 50 MG TABS 1 po q6hr PRN Pain TRAMADOL HCL 96963447803 No Longer Active Simon Castillo MD Active PREDNISONE 5 MG TABS 1 po qod PREDNISONE 93506211352 No Longer Active Simon Castillo MD Active SYMBICORT 160-4.5 MCG/ACT AERO 2 puff BID BUDESONIDE- FORMOTEROL FUMARATE 73782110988 No Longer Active Simon Castillo MD Active FLONASE 50 MCG/ACT SUSP 2 puffs in each nostril daily FLUTICASONE PROPIONATE 78887992062 No Longer Active Simon Castillo MD Active PREDNISONE 20 MG TAB 2 tabs daily for 5 days, then 1 daily for 5 days PREDNISONE 17530986986 No Longer Active Simon Castillo MD Active PREDNISONE 20 MG TAB 2 tabs daily for 5 days, then 1 daily for 5 days, then 0.5 for 4 days PREDNISONE 91579200523 No Longer Active Simon Castillo MD Active PREDNISONE 20 MG TAB 2 tabs daily for 3 days, 1 tab daily for 3 days, 1/2 tab daily for 2 days PREDNISONE 89220586289 No Longer Active Simon Castillo MD Active AZITHROMYCIN 250 MG TABS 2 po qd x 1 day, then 1 po qd x 4 days AZITHROMYCIN 14203384334 No Longer Active Simon Castillo MD Active CARVEDILOL 6.25 MG TABS 1 po BID CARVEDILOL 43237411003 Active Simon Castillo MD Active LISINOPRIL-HYDROCHLOROTHIAZIDE 20-12.5 MG TABS 1/2 tab by mouth daily LISINOPRIL-HYDROCHLOROTHIAZIDE 65353021981 No Longer Active Simon Castillo MD Active TRAMADOL HCL 50 MG TABS 1-2 tablets every 6 hours as needed for pain TRAMADOL HCL 90931549690 Active Giles Tatum APRN Active PREDNISONE 5 MG TAB Take one po qod PREDNISONE 13037240955 No Longer Active Simon Castillo MD Active GLYBURIDE 5 MG TAB Take one by mouth daily GLYBURIDE 04592252035 No Longer Active Simon Castillo MD Active LEVAQUIN 750 MG TABS 1 po qod x 5 doses LEVOFLOXACIN 45777895393 No Longer Active Simon Castillo MD Active CETIRIZINE HCL 10 MG TABS 1 po qd as needed for allergies CETIRIZINE HCL 97578566454 No Longer Active Simon Castillo MD Active BILBERRY CAPS 1 tab daily BILBERRY (VACCINIUM MYRTILLUS) CAPS 81297596002 Active Simon Castillo MD Active ATENOLOL 50 MG TABS Take one by mouth daily ATENOLOL 73271214032 No Longer Active Simon Castillo MD Active FLONASE 50 MCG/ACT SUSP 2 puffs in each nostril daily FLUTICASONE PROPIONATE 32207773741 No Longer Active Simon Castillo MD Active GLYBURIDE 5 MG TAB Take one by mouth daily GLYBURIDE 12671047507 No Longer Active Simon Castillo MD Active SYMBICORT 80-4.5 MCG/ACT AERO 2 puffs twice a day BUDESONIDE-FORMOTEROL FUMARATE 95441402324 No Longer Active Simon Castillo MD Active PREDNISONE 20 MG TAB 2 tabs daily for 4 days, 1 tab daily for 4 days, 1/2 tab daily for 4 days PREDNISONE 78530321101 No Longer Active Simon Castillo MD Active AMOXICILLIN 500 MG CAPS 2 po BID x 10 days AMOXICILLIN 10534582685 No Longer Active Simon Castillo MD Active METFORMIN HCL 1000 MG TABS 1 by mounth twice a day METFORMIN HCL 77429562660 No Longer Active Simon Castillo MD Active LUTEIN-ZEAXANTHIN 6-1 MG TABS Take 2 by mouth daily LUTEIN-ZEAXANTHIN 83509479342 Active Simon Castillo MD Active IBUPROFEN 800 MG TABS Take 1 tab every 6 hrs prn IBUPROFEN 51575293983 No Longer Active Simon Castillo MD Active GLYBURIDE 2.5 MG TABS Take one by mouth daily GLYBURIDE 49918220435 No Longer Active Simon Castillo MD Active LANCETS MISC 2 qd LANCETS 31440872443 Active Pamela Conde Active ACACIA CONTOUR TEST STRP Use with testing twice daily GLUCOSE BLOOD 52615084041 Active Simon Castillo MD Active GLYBURIDE 2.5 MG TABS Take one by mouth daily GLYBURIDE 2.5 MG TABS 350732 GLYBURIDE Inactive PREDNISONE 20 MG TAB 2 tabs daily for 4 days, 1 tab daily for 4 days, 1/2 tab daily for 4 days PREDNISONE 20 MG TAB 416137 PREDNISONE Inactive SYMBICORT 80-4.5 MCG/ACT AERO 2 puffs twice a day SYMBICORT 80-4.5 MCG/ACT AERO BUDESONIDE-FORMOTEROL FUMARATE Inactive FLONASE 50 MCG/ACT SUSP 2 puffs in each nostril daily FLONASE 50 MCG/ACT SUSP FLUTICASONE PROPIONATE Inactive ATENOLOL 50 MG TABS Take one by mouth daily ATENOLOL 50 MG TABS 722190 ATENOLOL Inactive CETIRIZINE HCL 10 MG TABS 1 po qd as needed for allergies CETIRIZINE HCL 10 MG TABS 2474631 CETIRIZINE HCL Inactive LEVAQUIN 750 MG TABS 1 po qod x 5 doses LEVAQUIN 750 MG TABS 846168 LEVOFLOXACIN Inactive GLYBURIDE 5 MG TAB Take one by mouth daily GLYBURIDE 5 MG TAB 353199 GLYBURIDE Inactive PREDNISONE 5 MG TAB Take one po qod PREDNISONE 5 MG TAB 761137 PREDNISONE Inactive PREDNISONE 20 MG TAB 2 tabs daily for 5 days, then 1 daily for 5 days PREDNISONE 20 MG TAB 963231 PREDNISONE Inactive FLONASE 50 MCG/ACT SUSP 2 puffs in each nostril daily FLONASE 50 MCG/ACT SUSP FLUTICASONE PROPIONATE Inactive SYMBICORT 160-4.5 MCG/ACT AERO 2 puff BID SYMBICORT 160-4.5 MCG/ACT AERO BUDESONIDE-FORMOTEROL FUMARATE Inactive PREDNISONE 5 MG TABS 1 po qod PREDNISONE 5 MG TABS 153153 PREDNISONE Inactive PREDNISONE 20 MG TAB 1 tablet daily for airway inflammation 02/25 PREDNISONE 20 MG TAB 003887 PREDNISONE Inactive SULFASALAZINE 500 MG ORAL TBEC 2 tabs BID SULFASALAZINE 500 MG ORAL TBEC 591299 SULFASALAZINE Inactive LASIX 20 MG TAB 1 tablet by mouth daily x 2 days LASIX 20 MG TAB 647276 FUROSEMIDE Inactive CLARITIN 10 MG TAB 1 tablet by mouth daily as needed for allergies CLARITIN 10 MG TAB 315263 LORATADINE Inactive CLOTRIMAZOLE 1 % EXT CREA Apply to affected area of feet twice daily PRN Rash CLOTRIMAZOLE 1 % EXT CREA 255985 CLOTRIMAZOLE Inactive AMOXICILLIN 500 MG CAPS 2 po BID x 10 days AMOXICILLIN 500 MG CAPS 401928 AMOXICILLIN Inactive GLYBURIDE 5 MG TAB Take one by mouth daily GLYBURIDE 5 MG TAB 707414 GLYBURIDE Inactive AZITHROMYCIN 250 MG TABS 2 po qd x 1 day, then 1 po qd x 4 days AZITHROMYCIN 250 MG TABS 1115384 AZITHROMYCIN Inactive PREDNISONE 20 MG TAB 2 tabs daily for 3 days, 1 tab daily for 3 days, 1/2 tab daily for 2 days PREDNISONE 20 MG TAB 590463 PREDNISONE Inactive PREDNISONE 20 MG TAB 2 tabs daily for 5 days, then 1 daily for 5 days, then 0.5 for 4 days PREDNISONE 20 MG TAB 133102 PREDNISONE Inactive AZITHROMYCIN 250 MG TABS 2 po qd x 1 day, then 1 po qd x 4 days AZITHROMYCIN 250 MG TABS 5337921 AZITHROMYCIN Inactive PREDNISONE 20 MG TAB 2 tabs daily for 3 days, 1 tab daily for 3 days, 1/2 tab daily for 2 days PREDNISONE 20 MG TAB 345512 PREDNISONE Inactive TRIAMCINOLONE ACETONIDE 0.1 % OINT Apply to affected areas TID for up to 2 weeks TRIAMCINOLONE ACETONIDE 0.1 % OINT 7012142 TRIAMCINOLONE ACETONIDE Inactive Immunizations Vaccine Administration Date [...] Panel - Chemistry sodium, serum 137 mmol/L 369-416 8711/06/06 carbon dioxide, venous blood 24.9 mmol/L 21.0-32.0 [...] Panel - Chemistry sodium, serum 139 mmol/L 488-759 2041/03/17 carbon dioxide, venous blood 29.0 mmol/L 21.0-32.0 [...] 8.5 % 4.3-6.0 sodium, serum 137 mmol/L 222-758 3330/02/12 potassium, serum 5.1 mmol/L 3.5-5.2 chloride, serum 103 mmol/L 98-107 carbon dioxide, venous blood 24.4 mmol/L 21.0-32.0 blood glucose 261 mg/dL 65-110 calcium, serum 9.0 mg/dL 8.5-10.1 urea nitrogen, blood 44 mg/dL 7-18 creatinine, serum 2.37 mg/dL 0.55-1.30 Lab Report: Lipid Panel, HGBA1C, Comp. Metabolic Panel - Chemistry cholesterol, serum 126 mg/dL [phone]/02/07 triglyceride, serum, fasting 83 mg/dL 30-200 HDL cholesterol, serum 70 mg/dL 32-96 LDL cholesterol, serum 39 mg/dL 0-130 hemoglobin A1C, blood, as % of total hemoglobin 8.3 % 4.3-6.0 sodium, serum 141 mmol/L 227-673 5904/02/07 carbon dioxide, venous blood 26.0 mmol/L 21.0-32.0 [...] 2.6-7.2 Encounters Code Encounter Date Provider Facility CPT-20927 Level 4 Est. Patient 09:29:28 RETURN TO FACTORY CLERK Simon Castillo MD [facility] CPT-12447 Level 3 Est. Patient 09:18:25 CDT Simon Castillo MD [facility] CPT-44632 Level 4 Est. Patient 11:51:23 CDT Simon Castillo MD [facility] CPT-64625 Level 4 Est. Patient 14:32:04 CDT Neto Oshea DO [facility] CPT-35733 Level 3 Est. Patient 08:41:43 CDT Giles Nashamayal [facility] CPT-98128 Level 3 Est. Patient 08:40:53 CDT Jillina Nashzell [facility] CPT-61091 Level 3 Est. Patient 08:36:52 CDT Jillina Nashzell [facility] CPT-63261 Level 3 Est. Patient 09:08:44 CDT Jonathanmeli Nashamayal [facility] CPT-58016 Level 4 Est. Patient 09:17:32 RETURN TO FACTORY CLERK Simon Castillo MD [facility] CPT-39497 Level 3 Est. Patient 11:22:22 RETURN TO FACTORY CLERK Simon Castillo MD [facility] CPT-61754 Level 3 Est. Patient 09:02:14 CDT Simon Castillo MD [facility] CPT-88898 Level 4 Est. Patient 08:47:25 CDT Simon Castillo MD [facility] CPT-46240 Level 4 Est. Patient 10:17:25 CDT Simon Castillo MD [facility] CPT-58073 Level 4 Est. Patient 10:10:09 RETURN TO FACTORY CLERK Simon Castillo MD [facility] CPT-26206 Level 4 Est. Patient 11:48:19 CDT Simon Castillo MD [facility] CPT-69941 Level 4 Est. Patient 08:59:29 CDT Simon Castillo MD [facility] CPT-11090 Level 4 Est. Patient 10:52:51 RETURN TO FACTORY CLERK Simon Castillo MD [facility] CPT-66072 Level 4 Est. Patient 11:50:30 CDT Simon Castillo MD [facility] CPT-49120 Level 4 Est. Patient 09:54:46 CDT Simon Castillo MD [facility] CPT-54801 Level 3 Est. Patient 11:10:14 CDT Simon Castillo MD [facility] CPT-45358 Level 4 Est. Patient 09:44:02 CDT Simon Castillo MD [facility] CPT-20895 Level 3 Est. Patient 09:27:48 CDT Simon Castillo MD [facility] CPT-31931 Level 3 Est. Patient 09:58:06 RETURN TO FACTORY CLERK Simon Castillo MD [facility] CPT-86014 Level 3 Est. Patient 09:51:35 CDT Simon Castillo MD [facility] Procedures Code Procedure Name Date Entry Date Standard Description CPT-36272 First Vx - Ix admin for Medicare patients 17:33:39 CDT CPT-49756 Fluzone High-Dose Intramuscular Suspension 17:33:39 CDT CPT-G0438 Initial Annual Wellness Exam 08:57:30 CDT CPT-40637 Chest 2V Frontal and Lat - XRAY USE ONLY 09:00:14 CDT CPT-24518 Venipuncture Draw Fee 13:33:02 CDT CPT-73511 Bone Density 09:37:49 RETURN TO FACTORY CLERK CPT-41626 Fluzone High Dose 17:20:42 CDT CPT-65576 Prevnar 13 17:20:42 CDT CPT-11288 Administration 2+ single or combination vaccines inc oral 17:20:42 CDT CPT-32068 Administration single or combination vaccine inc oral 17 :20:42 CDT CPT-12893 Hand comp min 3V 09:24:38 CDT CPT-57597 Venipuncture Draw Fee 08:07:29 RETURN TO FACTORY CLERK CPT-11522 Venipuncture Draw Fee 09:02:51 RETURN TO FACTORY CLERK CPT-59416 Venipuncture Draw Fee 12:45:08 RETURN TO FACTORY CLERK CPT-70043 Venipuncture Draw Fee 09:25:31 CDT CPT-G0008 Administration of Influenza Virus Vaccine 14:41:29 CDT CPT-51740 Fluzone High-Dose Intramuscular Suspension 14:41:29 CDT CPT-Cryo Cryotherapy 11:48:20 CDT CPT-93852 EKG Trac and Interp 09:21:58 CDT CPT-45116 Chest 2V Frontal and Lat 09:21:58 CDT CPT-Cryo Cryotherapy 10:54:51 RETURN TO FACTORY CLERK CPT-28313 Administration 2+ single or combination vaccines inc oral 10:42:19 CDT CPT-85690 Administration single or combination vaccine inc oral 10 :42:19 CDT CPT-88046 Pneumovax 10:42:19 CDT CPT-69372 Influenza High Dose age 65+ 10:42:19 CDT CPT-57164 Administration single or combination vaccine inc oral 13 :18:54 CDT CPT-50931 Influenza High Dose age 65+ 13:18:54 CDT CPT-33391 Venipuncture Draw Fee 11:53:16 CDT CPT-97421 LS spine comp w obliq 11:03:13 CDT CPT-Cryo Cryotherapy 08:27:16 RETURN TO FACTORY CLERK CPT-01857 Administration single or combination vaccine inc oral 10 :56:34 CDT CPT-23757 Influenza High Dose age 65+ 10:56:34 CDT
--- OUTSIDE RECORDS SUMMARY | 2018-03-31 19:14 | XMS REPORT | Clinical Summary ---
Author Author Admin, E Organization [facility] Address Unknown Phone Unavailable Allergies, Adverse Reactions, Alerts Allergy Name Reaction Description Start Date Severity Status Provider No Known Allergies [facility] Conditions or Problems Problem Name Problem [...] Simon Castillo MD Rheumatoid arthritis Steroid use, rendering equipment tender V58.65 Resolved Simon Castillo MD Long-term [...] Rheumatoid arthritis Pharyngitis 462 Active Jillina Frazell DISTRICT DIRECTOR Acute pharyngitis Dyspnea 786.09 Active Jillina Frazell DISTRICT DIRECTOR Other dyspnea and respiratory abnormality Peripheral edema 782.3 Active Jillina Frazell DISTRICT DIRECTOR Edema 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 Simon Castillo MD Other specified erythematous conditions DIABETES ICD-V18.0 Inactive Simon Castillo MD FH LUNG CANCER ICD-V16.1 Inactive Simon Castillo MD ABDOMINAL TENDERNESS ICD-789.60 Inactive Simon Castillo MD CHEST WALL PAIN, HX OF ICD-V15.89 Inactive Simon Castillo MD SEBORRHEIC KERATOSIS ICD-702.19 Inactive Simon Castillo MD BRONCHITIS, ACUTE ICD-466.0 Inactive Simon Catsillo MD SINUSITIS, ACUTE ICD-461.9 Inactive Simon Castillo [...] ICD-729.5 Inactive Simon Castillo MD Steroid use, rendering equipment tender ICD-V58.65 Inactive Simon Castillo MD Hand pain, bilateral ICD-729.5 Kerry Castillo MD Medication List Medication Instructions Start Date Stop Date Generic Name NDC Status Provider Patient Instruction TRIAMCINOLONE ACETONIDE 0.1 % OINT Apply to affected areas TID for up to 2 weeks TRIAMCINOLONE ACETONIDE 91310225377 Active Simon Castillo MD Active LASIX 20 MG TAB 1 tablet by mouth daily x 2 days FUROSEMIDE 14053531730 No Longer Active Simon Castillo MD Active SULFASALAZINE 500 MG ORAL TBEC 2 tabs BID SULFASALAZINE 85762413910 No Longer Active Neto Oseha DO Active PREDNISONE 20 MG TAB 2 tabs daily for 3 days, 1 tab daily for 3 days, 1/2 tab daily for 2 days PREDNISONE 14388220879 No Longer Active Jilltriston Tatum APRN Active PREDNISONE 20 MG TAB 1 tablet daily for airway inflammation 02/25 PREDNISONE 66825736818 No Longer Active Jillina Frazell DISTRICT DIRECTOR Active CLARITIN 10 MG TAB 1 tablet by mouth daily as needed for allergies LORATADINE 26244147594 Active Giles Tatum DISTRICT DIRECTOR Active AZITHROMYCIN 250 MG TABS 2 po qd x 1 day, then 1 po qd x 4 days AZITHROMYCIN 53983474074 No Longer Active Jillina Frazell DISTRICT DIRECTOR Active GLIMEPIRIDE 2 MG ORAL TABS 1 po q a.m. GLIMEPIRIDE 47767846554 Active Simon Castillo MD Active HYDROCODONE-ACETAMINOPHEN 5-325 MG TABS 1 tab by mouth 8 hours as needed for pain HYDROCODONE-ACETAMINOPHEN 18234241392 Active Simon Castillo MD Active TRAMADOL HCL 50 MG TABS 1 po q6hr PRN Pain TRAMADOL HCL 56951697619 No Longer Active Simon Castillo MD Active PREDNISONE 5 MG TAB 1-2 tabs daily for rheumatoid arthritis PREDNISONE 40211328521 Active Simon Castillo MD Active PREDNISONE 5 MG TABS 1 po qod PREDNISONE 89983152218 No Longer Active Simon Castillo MD Active SYMBICORT 160-4.5 MCG/ACT AERO 2 puff BID BUDESONIDE- FORMOTEROL FUMARATE 19346037341 No Longer Active Simon Castillo MD Active FLONASE 50 MCG/ACT SUSP 2 puffs in each nostril daily FLUTICASONE PROPIONATE 98087206787 No Longer Active Simon Castillo MD Active PREDNISONE 20 MG TAB 2 tabs daily for 5 days, then 1 daily for 5 days PREDNISONE 34732890223 No Longer Active Simon Castillo MD Active PREDNISONE 20 MG TAB 2 tabs daily for 5 days, then 1 daily for 5 days, then 0.5 for 4 days PREDNISONE 20073455794 No Longer Active Simon Castillo MD Active CLOTRIMAZOLE 1 % EXT CREA Apply to affected area of feet twice daily PRN Rash CLOTRIMAZOLE 44550916100 Active Simon Castillo MD Active PREDNISONE 20 MG TAB 2 tabs daily for 3 days, 1 tab daily for 3 days, 1/2 tab daily for 2 days PREDNISONE 94897147719 No Longer Active Simon Castillo MD Active AZITHROMYCIN 250 MG TABS 2 po qd x 1 day, then 1 po qd x 4 days AZITHROMYCIN 80741549950 No Longer Active Simon Castillo MD Active LISINOPRIL 10 MG TABS 1 tablet by mouth daily LISINOPRIL 23639865123 Active Simon Castillo MD Active CARVEDILOL 6.25 MG TABS 1 po BID CARVEDILOL 32466567876 Active Simon Castillo MD Active LISINOPRIL-HYDROCHLOROTHIAZIDE 20-12.5 MG TABS 1/2 tab by mouth daily LISINOPRIL-HYDROCHLOROTHIAZIDE 63423271229 No Longer Active Simon Castillo MD Active TRAMADOL HCL 50 MG TABS 1-2 tablets every 6 hours as needed for pain TRAMADOL HCL 36456593244 Active Giles Tatum APRN Active PREDNISONE 5 MG TAB Take one po qod PREDNISONE 80263905396 No Longer Active Simon Castillo MD Active GLYBURIDE 5 MG TAB Take one by mouth daily GLYBURIDE 31462390889 No Longer Active Simon Castillo MD Active LEVAQUIN 750 MG TABS 1 po qod x 5 doses LEVOFLOXACIN 86795589347 No Longer Active Simon Castillo MD Active CETIRIZINE HCL 10 MG TABS 1 po qd as needed for allergies CETIRIZINE HCL 27313927853 No Longer Active Simon Castillo MD Active FISH OIL 1000 MG CPDR 1 pill by mouth twice daily for cholesterol OMEGA -3 FATTY ACIDS 09674228912 Active Simon Castillo MD Active BILBERRY CAPS 1 tab daily BILBERRY (VACCINIUM MYRTILLUS) CAPS 99638356235 Active Simon Castillo MD Active ATENOLOL 50 MG TABS Take one by mouth daily ATENOLOL 76274276881 No Longer Active Simon Castillo MD Active FLONASE 50 MCG/ACT SUSP 2 puffs in each nostril daily FLUTICASONE PROPIONATE 90244470820 No Longer Active Simon Castillo MD Active GLYBURIDE 5 MG TAB Take one by mouth daily GLYBURIDE 20799433776 No Longer Active Simon Castillo MD Active SYMBICORT 80-4.5 MCG/ACT AERO 2 puffs twice a day BUDESONIDE-FORMOTEROL FUMARATE 83070875348 No Longer Active Simon Castillo MD Active PREDNISONE 20 MG TAB 2 tabs daily for 4 days, 1 tab daily for 4 days, 1/2 tab daily for 4 days PREDNISONE 57469448969 No Longer Active Simon Castillo MD Active AMOXICILLIN 500 MG CAPS 2 po BID x 10 days AMOXICILLIN 98680137806 No Longer Active Simon Castillo MD Active METFORMIN HCL 1000 MG TABS 1 by mounth twice a day METFORMIN HCL 85659834046 No Longer Active Simon Castillo MD Active LUTEIN-ZEAXANTHIN 6-1 MG TABS Take 2 by mouth daily LUTEIN-ZEAXANTHIN 02963070185 Active Simon Castillo MD Active IBUPROFEN 800 MG TABS Take 1 tab every 6 hrs prn IBUPROFEN 39129968262 No Longer Active Simon Castillo MD Active GLYBURIDE 2.5 MG TABS Take one by mouth daily GLYBURIDE 25499308497 No Longer Active Simon Castillo MD Active LANCETS MISC 2 qd LANCETS 68349813815 Active Pamela Conde Active ACACIA CONTOUR TEST STRP Use with testing twice daily GLUCOSE BLOOD 89070446271 Active Simon Castillo MD Active ACACIA ASPIRIN 325 MG TABS Take one by mouth daily ASPIRIN 98027078314 Active Pamela Conde Active GLYBURIDE 2.5 MG TABS Take one by mouth daily GLYBURIDE 2.5 MG TABS 373394 GLYBURIDE Inactive PREDNISONE 20 MG TAB 2 tabs daily for 4 days, 1 tab daily for 4 days, 1/2 tab daily for 4 days PREDNISONE 20 MG TAB 933931 PREDNISONE Inactive SYMBICORT 80-4.5 MCG/ACT AERO 2 puffs twice a day SYMBICORT 80-4.5 MCG/ACT AERO BUDESONIDE-FORMOTEROL FUMARATE Inactive FLONASE 50 MCG/ACT SUSP 2 puffs in each nostril daily FLONASE 50 MCG/ACT SUSP 092679 FLUTICASONE PROPIONATE Inactive ATENOLOL 50 MG TABS Take one by mouth daily ATENOLOL 50 MG TABS 455165 ATENOLOL Inactive CETIRIZINE HCL 10 MG TABS 1 po qd as needed for allergies CETIRIZINE HCL 10 MG TABS 2892973 CETIRIZINE HCL Inactive LEVAQUIN 750 MG TABS 1 po qod x 5 doses LEVAQUIN 750 MG TABS 015712 LEVOFLOXACIN Inactive GLYBURIDE 5 MG TAB Take one by mouth daily GLYBURIDE 5 MG TAB 010995 GLYBURIDE Inactive PREDNISONE 5 MG TAB Take one po qod PREDNISONE 5 MG TAB 397528 PREDNISONE Inactive PREDNISONE 20 MG TAB 2 tabs daily for 5 days, then 1 daily for 5 days PREDNISONE 20 MG TAB 413849 PREDNISONE Inactive FLONASE 50 MCG/ACT SUSP 2 puffs in each nostril daily FLONASE 50 MCG/ACT SUSP 410994 FLUTICASONE PROPIONATE Inactive SYMBICORT 160-4.5 MCG/ACT AERO 2 puff BID SYMBICORT 160-4.5 MCG/ACT AERO BUDESONIDE-FORMOTEROL FUMARATE Inactive PREDNISONE 5 MG TABS 1 po qod PREDNISONE 5 MG TABS 180479 PREDNISONE Inactive PREDNISONE 20 MG TAB 1 tablet daily for airway inflammation 02/25 PREDNISONE 20 MG TAB 474029 PREDNISONE Inactive SULFASALAZINE 500 MG ORAL TBEC 2 tabs BID SULFASALAZINE 500 MG ORAL TBEC 319551 SULFASALAZINE Inactive LASIX 20 MG TAB 1 tablet by mouth daily x 2 days LASIX 20 MG TAB 994165 FUROSEMIDE Inactive AMOXICILLIN 500 MG CAPS 2 po BID x 10 days AMOXICILLIN 500 MG CAPS 435495 AMOXICILLIN Inactive GLYBURIDE 5 MG TAB Take one by mouth daily GLYBURIDE 5 MG TAB 667360 GLYBURIDE Inactive AZITHROMYCIN 250 MG TABS 2 po qd x 1 day, then 1 po qd x 4 days AZITHROMYCIN 250 MG TABS 0658229 AZITHROMYCIN Inactive PREDNISONE 20 MG TAB 2 tabs daily for 3 days, 1 tab daily for 3 days, 1/2 tab daily for 2 days PREDNISONE 20 MG TAB 533030 PREDNISONE Inactive PREDNISONE 20 MG TAB 2 tabs daily for 5 days, then 1 daily for 5 days, then 0.5 for 4 days PREDNISONE 20 MG TAB 670920 PREDNISONE Inactive AZITHROMYCIN 250 MG TABS 2 po qd x 1 day, then 1 po qd x 4 days AZITHROMYCIN 250 MG TABS 1271410 AZITHROMYCIN Inactive PREDNISONE 20 MG TAB 2 tabs daily for 3 days, 1 tab daily for 3 days, 1/2 tab daily for 2 days PREDNISONE 20 MG TAB 682211 PREDNISONE Inactive Immunizations Vaccine Administration Date Value [...] Panel - Chemistry sodium, serum 132 mmol/L 061-138 4387/10/26 carbon dioxide, venous blood 22.8 mmol/L 21.0-32.0 potassium, serum 5.4 mmol/L 3.5-5.2 chloride, serum 98 mmol/L 98-107 blood glucose 424 mg/dL 65-110 urea nitrogen, blood 40 mg/dL 7-18 creatinine, serum 2.26 mg/dL 0.55-1.30 alanine aminotransferase (SGPT), serum 29 U/L 12-78 aspartate aminotransferase (SGOT), serum 24 U/L 15-37 calcium, serum 8.6 mg/dL 8.5-10.1 bilirubin, serum, total 0.60 mg/dL 0.00-1.00 sodium, serum 137 mmol/L 259-519 1084/06/06 carbon dioxide, venous blood 24.9 mmol/L 21.0-32.0 [...] % 11.6-14.8 platelet count 210 10^3/MM^3 10*3/mm3 525-058 0134/10/26 leukocyte count, blood 10.3 10^3/MM^3 10*3/mm3 4.6-10.2 [...] Panel - Chemistry sodium, serum 139 mmol/L 463-238 4995/03/17 carbon dioxide, venous blood 29.0 mmol/L 21.0-32.0 [...] Rate - Chemistry sodium, serum 136 mmol/L 478-763 3110/09/18 carbon dioxide, venous blood 24.3 mmol/L 21.0-32.0 [...] HGBA1C - Chemistry sodium, serum 139 mmol/L 741-875 2919/07/09 potassium, serum 5.4 mmol/L 3.5-5.2 chloride, serum [...] 8.5 % 4.3-6.0 sodium, serum 137 mmol/L 076-212 5640/02/12 potassium, serum 5.1 mmol/L 3.5-5.2 chloride, serum 103 mmol/L 98-107 carbon dioxide, venous blood 24.4 mmol/L 21.0-32.0 blood glucose 261 mg/dL 65-110 calcium, serum 9.0 mg/dL 8.5-10.1 urea nitrogen, blood 44 mg/dL 7-18 creatinine, serum 2.37 mg/dL 0.55-1.30 Lab Report: Lipid Panel - Chemistry cholesterol, serum 139 mg/dL 711-236 5988/09/10 triglyceride, serum, fasting 176 mg/dL 30-200 HDL cholesterol, serum 45 mg/dL 32-96 LDL cholesterol, serum 59 mg/dL 0-130 Lab Report: MICROALBUMIN - Chemistry albumin/creatinine ratio, urine 30 - 300 mg/g mg/g{creat} 0-29 Lab Report: MICROALBUMIN - Lab microalbumin, urine 30 0-19 Lab Report: Uric Acid - Chemistry uric acid, serum 6.3 mg/dL 2.6-7.2 Encounters Code Encounter Date Provider Facility CPT-85781 Level 3 Est. Patient 09:18:25 CDT Simon Castillo MD [facility] CPT-00014 Level 4 Est. Patient 11:51:23 CDT Simon Castillo MD [facility] CPT-64114 Level 4 Est. Patient 14:32:04 CDT Neto Oshea DO [facility] CPT-68427 Level 3 Est. Patient 08:41:43 CDT Giles Nashtico [facility] CPT-66699 Level 3 Est. Patient 08:40:53 CDT Jillina Nashzell [facility] CPT-12689 Level 3 Est. Patient 08:36:52 CDT Jonathanllina Nashzell [facility] CPT-92871 Level 3 Est. Patient 09:08:44 CDT Jimeli Nashamayal [facility] CPT-03769 Level 4 Est. Patient 09:17:32 SHUTTLE OPERATOR Simon Castillo MD [facility] CPT-13149 Level 3 Est. Patient 11:22:22 SHUTTLE OPERATOR Simon Castillo MD [facility] CPT-70063 Level 3 Est. Patient 09:02:14 CDT Simon Castillo MD [facility] CPT-73129 Level 4 Est. Patient 08:47:25 CDT Simon Castillo MD [facility] CPT-93226 Level 4 Est. Patient 10:17:25 CDT Simon Castillo MD [facility] CPT-69286 Level 4 Est. Patient 10:10:09 SHUTTLE OPERATOR Simon Castillo MD [facility] CPT-18935 Level 4 Est. Patient 11:48:19 CDT Simon Castillo MD [facility] CPT-65175 Level 4 Est. Patient 08:59:29 CDT Simon Csatillo MD [facility] CPT-79407 Level 4 Est. Patient 10:52:51 SHUTTLE OPERATOR Simon Castillo MD [facility] CPT-23625 Level 4 Est. Patient 11:50:30 CDT Simon Castillo MD [facility] CPT-63303 Level 4 Est. Patient 09:54:46 CDT Simon Castillo MD [facility] CPT-97857 Level 3 Est. Patient 11:10:14 CDT Simon Castillo MD [facility] CPT-20499 Level 4 Est. Patient 09:44:02 CDT Simon Castillo MD [facility] CPT-88461 Level 3 Est. Patient 09:27:48 CDT Simon Castillo MD [facility] CPT-19056 Level 3 Est. Patient 09:58:06 SHUTTLE OPERATOR Simon Castillo MD [facility] CPT-16045 Level 3 Est. Patient 09:51:35 CDT Simon Castillo MD [facility] Procedures Code Procedure Name Date Entry Date Standard Description CPT-G0438 Initial Annual Wellness Exam 08:57:30 CDT CPT-39306 Chest 2V Frontal and Lat - XRAY USE ONLY 09:00:14 CDT CPT-64623 Venipuncture Draw Fee 13:33:02 CDT CPT-25258 Bone Density 09:37:49 SHUTTLE OPERATOR CPT-27508 Fluzone High Dose 17:20:42 CDT CPT-97034 Prevnar 13 17:20:42 CDT CPT-48043 Administration 2+ single or combination vaccines inc oral 17:20:42 CDT CPT-72497 Administration single or combination vaccine inc oral 17 :20:42 CDT CPT-86876 Hand comp min 3V 09:24:38 CDT CPT-19951 Venipuncture Draw Fee 08:07:29 SHUTTLE OPERATOR CPT-56599 Venipuncture Draw Fee 09:02:51 SHUTTLE OPERATOR CPT-31671 Venipuncture Draw Fee 12:45:08 SHUTTLE OPERATOR CPT-40666 Venipuncture Draw Fee 09:25:31 CDT CPT-G0008 Administration of Influenza Virus Vaccine 14:41:29 CDT CPT-30616 Fluzone High-Dose Intramuscular Suspension 14:41:29 CDT CPT-Cryo Cryotherapy 11:48:20 CDT CPT-04219 EKG Trac and Interp 09:21:58 CDT CPT-58137 Chest 2V Frontal and Lat 09:21:58 CDT CPT-Cryo Cryotherapy 10:54:51 SHUTTLE OPERATOR CPT-27099 Administration 2+ single or combination vaccines inc oral 10:42:19 CDT CPT-77269 Administration single or combination vaccine inc oral 10 :42:19 CDT CPT-53509 Pneumovax 10:42:19 CDT CPT-19418 Influenza High Dose age 65+ 10:42:19 CDT CPT-50359 Administration single or combination vaccine inc oral 13 :18:54 CDT CPT-54546 Influenza High Dose age 65+ 13:18:54 CDT CPT-71441 Venipuncture Draw Fee 11:53:16 CDT CPT-94758 LS spine comp w obliq 11:03:13 CDT CPT-Cryo Cryotherapy 08:27:16 SHUTTLE OPERATOR CPT-85560 Administration single or combination vaccine inc oral 10 :56:34 CDT CPT-17742 Influenza High Dose age 65+ 10:56:34 CDT
--- OUTSIDE RECORDS SUMMARY | 2018-03-31 19:15 | XMS REPORT | Clinical Summary ---
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 Kerry Castillo MD Hand pain, bilateral [...] ORAL TABS 1 po qd PIOGLITAZONE HCL 36057944210 Active Simon Castillo MD Active GLIMEPIRIDE 4 MG ORAL TABS 1 po BID GLIMEPIRIDE 46690891404 Active Simon Castillo MD Active ASPIRIN EC 81 MG ORAL TBEC 1 po qd ASPIRIN 29108910949 Active Simon Castillo MD Active CLOTRIMAZOLE 1 % EXT CREA Apply to affected area of feet twice daily PRN Rash CLOTRIMAZOLE 46330260079 No Longer Active Simon Castillo MD Active PREDNISONE 5 MG TAB 1 po BID PREDNISONE 87827338998 Active Simon Castillo MD Active FISH OIL 1000 MG CPDR 1 po BID OMEGA-3 FATTY ACIDS 76771128947 Active Simon Castillo MD Active LISINOPRIL 10 MG TABS 1 p qd LISINOPRIL 76972520151 Active Simon Castillo MD Active CLARITIN 10 MG TAB 1 tablet by mouth daily as needed for allergies LORATADINE 79012018764 No Longer Active Simon Castillo MD Active TRIAMCINOLONE ACETONIDE 0.1 % OINT Apply to affected areas TID for up to 2 weeks TRIAMCINOLONE ACETONIDE 11040819365 No Longer Active Simon Castillo MD Active LASIX 20 MG TAB 1 tablet by mouth daily x 2 days FUROSEMIDE 87770233703 No Longer Active Simon Castillo MD Active SULFASALAZINE 500 MG ORAL TBEC 2 tabs BID SULFASALAZINE 11855091080 No Longer Active Neot Oshea DO Active PREDNISONE 20 MG TAB 2 tabs daily for 3 days, 1 tab daily for 3 days, 1/2 tab daily for 2 days PREDNISONE 03549629758 No Longer Active Giles Salcidol [employer] Active PREDNISONE 20 MG TAB 1 tablet daily for airway inflammation 02/25 PREDNISONE 28495320389 No Longer Active Jillina Frazell [employer] Active AZITHROMYCIN 250 MG TABS 2 po qd x 1 day, then 1 po qd x 4 days AZITHROMYCIN 16506343541 No Longer Active Jillina Frazell [employer] Active HYDROCODONE-ACETAMINOPHEN 5-325 MG TABS 1 tab by mouth 8 hours as needed for pain HYDROCODONE-ACETAMINOPHEN 91548347439 Active Simon Castillo MD Active TRAMADOL HCL 50 MG TABS 1 po q6hr PRN Pain TRAMADOL HCL 43536634377 No Longer Active Simon Castillo MD Active PREDNISONE 5 MG TABS 1 po qod PREDNISONE 02349100909 No Longer Active Simon Castillo MD Active SYMBICORT 160-4.5 MCG/ACT AERO 2 puff BID BUDESONIDE- FORMOTEROL FUMARATE 33574326276 No Longer Active Simon Castillo MD Active FLONASE 50 MCG/ACT SUSP 2 puffs in each nostril daily FLUTICASONE PROPIONATE 88148824205 No Longer Active Simon Castillo MD Active PREDNISONE 20 MG TAB 2 tabs daily for 5 days, then 1 daily for 5 days PREDNISONE 96761493826 No Longer Active Simon Castillo MD Active PREDNISONE 20 MG TAB 2 tabs daily for 5 days, then 1 daily for 5 days, then 0.5 for 4 days PREDNISONE 04162219196 No Longer Active Simon Castillo MD Active PREDNISONE 20 MG TAB 2 tabs daily for 3 days, 1 tab daily for 3 days, 1/2 tab daily for 2 days PREDNISONE 69976225175 No Longer Active Simon Castillo MD Active AZITHROMYCIN 250 MG TABS 2 po qd x 1 day, then 1 po qd x 4 days AZITHROMYCIN 67355509635 No Longer Active Simon Castillo MD Active CARVEDILOL 6.25 MG TABS 1 po BID CARVEDILOL 30193869793 Active Simon Castillo MD Active LISINOPRIL-HYDROCHLOROTHIAZIDE 20-12.5 MG TABS 1/2 tab by mouth daily LISINOPRIL-HYDROCHLOROTHIAZIDE 77662051483 No Longer Active Simon Castillo MD Active TRAMADOL HCL 50 MG TABS 1-2 tablets every 6 hours as needed for pain TRAMADOL HCL 42975806294 Active Giles Tatum APRN Active PREDNISONE 5 MG TAB Take one po qod PREDNISONE 46377875320 No Longer Active Simon Castillo MD Active GLYBURIDE 5 MG TAB Take one by mouth daily GLYBURIDE 66417937499 No Longer Active Simon Castillo MD Active LEVAQUIN 750 MG TABS 1 po qod x 5 doses LEVOFLOXACIN 31461916341 No Longer Active Simon Castillo MD Active CETIRIZINE HCL 10 MG TABS 1 po qd as needed for allergies CETIRIZINE HCL 98381997395 No Longer Active Simon Castillo MD Active BILBERRY CAPS 1 tab daily BILBERRY (VACCINIUM MYRTILLUS) CAPS 65516039041 Active Simon Castillo MD Active ATENOLOL 50 MG TABS Take one by mouth daily ATENOLOL 73445644148 No Longer Active Simon Castillo MD Active FLONASE 50 MCG/ACT SUSP 2 puffs in each nostril daily FLUTICASONE PROPIONATE 35414193350 No Longer Active Simon Castillo MD Active GLYBURIDE 5 MG TAB Take one by mouth daily GLYBURIDE 17336671855 No Longer Active Simon Castillo MD Active SYMBICORT 80-4.5 MCG/ACT AERO 2 puffs twice a day BUDESONIDE-FORMOTEROL FUMARATE 97030015130 No Longer Active Simon Castillo MD Active PREDNISONE 20 MG TAB 2 tabs daily for 4 days, 1 tab daily for 4 days, 1/2 tab daily for 4 days PREDNISONE 99073013339 No Longer Active Simon Castillo MD Active AMOXICILLIN 500 MG CAPS 2 po BID x 10 days AMOXICILLIN 70399088719 No Longer Active Simon Castillo MD Active METFORMIN HCL 1000 MG TABS 1 by mount twice a day METFORMIN HCL 31453259990 No Longer Active Simon Castillo MD Active LUTEIN-ZEAXANTHIN 6-1 MG TABS Take 2 by mouth daily LUTEIN-ZEAXANTHIN 56228675060 Active Simon Castillo MD Active IBUPROFEN 800 MG TABS Take 1 tab every 6 hrs prn IBUPROFEN 97247289661 No Longer Active Simon Castillo MD Active GLYBURIDE 2.5 MG TABS Take one by mouth daily GLYBURIDE 38022952175 No Longer Active Simon Castillo MD Active LANCETS MISC 2 qd LANCETS 55668532483 Active Pamela Conde Active ACACIA CONTOUR TEST STRP Use with testing twice daily GLUCOSE BLOOD 98282827530 Active Simon Castillo MD Active GLYBURIDE 2.5 MG TABS Take one by mouth daily GLYBURIDE 2.5 MG TABS 259411 GLYBURIDE Inactive PREDNISONE 20 MG TAB 2 tabs daily for 4 days, 1 tab daily for 4 days, 1/2 tab daily for 4 days PREDNISONE 20 MG TAB 559285 PREDNISONE Inactive SYMBICORT 80-4.5 MCG/ACT AERO 2 puffs twice a day SYMBICORT 80-4.5 MCG/ACT AERO BUDESONIDE-FORMOTEROL FUMARATE Inactive FLONASE 50 MCG/ACT SUSP 2 puffs in each nostril daily FLONASE 50 MCG/ACT SUSP 0430786 FLUTICASONE PROPIONATE Inactive ATENOLOL 50 MG TABS Take one by mouth daily ATENOLOL 50 MG TABS 747126 ATENOLOL Inactive CETIRIZINE HCL 10 MG TABS 1 po qd as needed for allergies CETIRIZINE HCL 10 MG TABS 2304392 CETIRIZINE HCL Inactive LEVAQUIN 750 MG TABS 1 po qod x 5 doses LEVAQUIN 750 MG TABS 486348 LEVOFLOXACIN Inactive GLYBURIDE 5 MG TAB Take one by mouth daily GLYBURIDE 5 MG TAB 608229 GLYBURIDE Inactive PREDNISONE 5 MG TAB Take one po qod PREDNISONE 5 MG TAB 237633 PREDNISONE Inactive PREDNISONE 20 MG TAB 2 tabs daily for 5 days, then 1 daily for 5 days PREDNISONE 20 MG TAB 048416 PREDNISONE Inactive FLONASE 50 MCG/ACT SUSP 2 puffs in each nostril daily FLONASE 50 MCG/ACT SUSP 5183590 FLUTICASONE PROPIONATE Inactive SYMBICORT 160-4.5 MCG/ACT AERO 2 puff BID SYMBICORT 160-4.5 MCG/ACT AERO BUDESONIDE-FORMOTEROL FUMARATE Inactive PREDNISONE 5 MG TABS 1 po qod PREDNISONE 5 MG TABS 204050 PREDNISONE Inactive PREDNISONE 20 MG TAB 1 tablet daily for airway inflammation 02/25 PREDNISONE 20 MG TAB 454414 PREDNISONE Inactive SULFASALAZINE 500 MG ORAL TBEC 2 tabs BID SULFASALAZINE 500 MG ORAL TBEC 651133 SULFASALAZINE Inactive LASIX 20 MG TAB 1 tablet by mouth daily x 2 days LASIX 20 MG TAB 192763 FUROSEMIDE Inactive CLARITIN 10 MG TAB 1 tablet by mouth daily as needed for allergies CLARITIN 10 MG TAB 518689 LORATADINE Inactive CLOTRIMAZOLE 1 % EXT CREA Apply to affected area of feet twice daily PRN Rash CLOTRIMAZOLE 1 % EXT CREA 916325 CLOTRIMAZOLE Inactive AMOXICILLIN 500 MG CAPS 2 po BID x 10 days AMOXICILLIN 500 MG CAPS 684027 AMOXICILLIN Inactive GLYBURIDE 5 MG TAB Take one by mouth daily GLYBURIDE 5 MG TAB 431772 GLYBURIDE Inactive AZITHROMYCIN 250 MG TABS 2 po qd x 1 day, then 1 po qd x 4 days AZITHROMYCIN 250 MG TABS 4771310 AZITHROMYCIN Inactive PREDNISONE 20 MG TAB 2 tabs daily for 3 days, 1 tab daily for 3 days, 1/2 tab daily for 2 days PREDNISONE 20 MG TAB 565285 PREDNISONE Inactive PREDNISONE 20 MG TAB 2 tabs daily for 5 days, then 1 daily for 5 days, then 0.5 for 4 days PREDNISONE 20 MG TAB 490386 PREDNISONE Inactive AZITHROMYCIN 250 MG TABS 2 po qd x 1 day, then 1 po qd x 4 days AZITHROMYCIN 250 MG TABS 9244687 AZITHROMYCIN Inactive PREDNISONE 20 MG TAB 2 tabs daily for 3 days, 1 tab daily for 3 days, 1/2 tab daily for 2 days PREDNISONE 20 MG TAB 946634 PREDNISONE Inactive TRIAMCINOLONE ACETONIDE 0.1 % OINT Apply to affected areas TID for up to 2 weeks TRIAMCINOLONE ACETONIDE 0.1 % OINT 6291208 TRIAMCINOLONE ACETONIDE Inactive Immunizations Vaccine Administration Date [...] Panel - Chemistry cholesterol, serum 126 mg/dL 067-195 4552/02/07 triglyceride, serum, fasting 83 mg/dL 30-200 HDL cholesterol, serum 70 mg/dL 32-96 LDL cholesterol, serum 39 mg/dL 0-130 hemoglobin A1C, blood, as % of total hemoglobin 8.3 % 4.3-6.0 sodium, serum 141 mmol/L 734-473 0705/02/07 carbon dioxide, venous blood 26.0 mmol/L 21.0-32.0 [...] 0.00-1.00 Encounters Code Encounter Date Provider Facility CPT-60309 Level 4 Est. Patient 09:54:08 CDT Simon Castillo MD [facility] CPT-07698 Level 4 Est. Patient 16:11:23 CDT Simon Castillo MD [facility] CPT-31112 Level 4 Est. Patient 09:29:28 AC[employer]RECTION HAND Simon Castillo MD [facility] CPT-46849 Level 3 Est. Patient 09:18:25 CDT Simon Castillo MD [facility] CPT-25377 Level 4 Est. Patient 11:51:23 CDT Simon Castillo MD [facility] CPT-99201 Level 4 Est. Patient 14:32:04 CDT Neto Oshea DO [facility] CPT-41153 Level 3 Est. Patient 08:41:43 CDT Jonathanviratriston Salcidoalejandrina [facility] CPT-06434 Level 3 Est. Patient 08:40:53 CDT Giles Salcidol [facility] CPT-78367 Level 3 Est. Patient 08:36:52 CDT Giles Salcidol [facility] CPT-77019 Level 3 Est. Patient 09:08:44 CDT Giles Salcidol [facility] CPT-81244 Level 4 Est. Patient 09:17:32 ACID CORRECTION HAND Simon Castillo MD [facility] CPT-62617 Level 3 Est. Patient 11:22:22 ACID CORRECTION HAND Simon Castillo MD [facility] CPT-52901 Level 3 Est. Patient 09:02:14 CDT Simon Castillo MD [facility] CPT-05168 Level 4 Est. Patient 08:47:25 CDT Simon Castillo MD [facility] CPT-99084 Level 4 Est. Patient 10:17:25 CDT Simon Castillo MD [facility] CPT-91917 Level 4 Est. Patient 10:10:09 ACID CORRECTION HAND Simon Castillo MD [facility] CPT-94948 Level 4 Est. Patient 11:48:19 CDT Simon Castillo MD [facility] CPT-76309 Level 4 Est. Patient 08:59:29 CDT Simon Castillo MD [facility] CPT-31030 Level 4 Est. Patient 10:52:51 ACID CORRECTION HAND Simon Castillo MD [facility] CPT-27057 Level 4 Est. Patient 11:50:30 CDT Simon Castillo MD [facility] CPT-19710 Level 4 Est. Patient 09:54:46 CDT Simon Castillo MD [facility] CPT-67876 Level 3 Est. Patient 11:10:14 CDT Simon Castillo MD [facility] CPT-16679 Level 4 Est. Patient 09:44:02 CDT Simon Castillo MD [facility] CPT-36483 Level 3 Est. Patient 09:27:48 CDT Simon Castillo MD [facility] CPT-24466 Level 3 Est. Patient 09:58:06 ACID CORRECTION HAND Simon Castillo MD [facility] CPT-20963 Level 3 Est. Patient 09:51:35 CDT Simon Castillo MD [facility] Procedures Code Procedure Name Date Entry Date Standard Description CPT-91089 Lipid - LAB USE ONLY 17:15:33 CDT CPT-13449 HGBA1C - LAB USE ONLY 17:15:33 CDT CPT-31103 CMP - LAB USE ONLY 17:15:33 CDT CPT-89710 Venipuncture Draw Fee 17:15:33 CDT CPT-TCM Transitional Care Mgmt-High 11:01:28 ACID CORRECTION HAND CPT-46002 First Vx - Ix admin for Medicare patients 17:33:39 CDT CPT-94682 Fluzone High-Dose Intramuscular Suspension 17:33:39 CDT CPT-G0438 Initial Annual Wellness Exam 08:57:30 CDT CPT-01288 Chest 2V Frontal and Lat - XRAY USE ONLY 09:00:14 CDT CPT-23452 Venipuncture Draw Fee 13:33:02 CDT CPT-06301 Bone Density 09:37:49 ACID CORRECTION HAND CPT-77023 Fluzone High Dose 17:20:42 CDT CPT-41823 Prevnar 13 17:20:42 CDT CPT-64891 Administration 2+ single or combination vaccines inc oral 17:20:42 CDT CPT-27854 Administration single or combination vaccine inc oral 17 :20:42 CDT CPT-06556 Hand comp min 3V 09:24:38 CDT CPT-89691 Venipuncture Draw Fee 08:07:29 ACID CORRECTION HAND CPT-60187 Venipuncture Draw Fee 09:02:51 ACID CORRECTION HAND CPT-63469 Venipuncture Draw Fee 12:45:08 ACID CORRECTION HAND CPT-25002 Venipuncture Draw Fee 09:25:31 CDT CPT-G0008 Administration of Influenza Virus Vaccine 14:41:29 CDT CPT-05143 Fluzone High-Dose Intramuscular Suspension 14:41:29 CDT CPT-Cryo Cryotherapy 11:48:20 CDT CPT-71978 EKG Trac and Interp 09:21:58 CDT CPT-01495 Chest 2V Frontal and Lat 09:21:58 CDT CPT-Cryo Cryotherapy 10:54:51 ACID CORRECTION HAND CPT-66674 Administration 2+ single or combination vaccines inc oral 10:42:19 CDT CPT-31749 Administration single or combination vaccine inc oral 10 :42:19 CDT CPT-73205 Pneumovax 10:42:19 CDT CPT-81971 Influenza High Dose age 65+ 10:42:19 CDT CPT-25105 Administration single or combination vaccine inc oral 13 :18:54 CDT CPT-94353 Influenza High Dose age 65+ 13:18:54 CDT CPT-87801 Venipuncture Draw Fee 11:53:16 CDT CPT-60462 LS spine comp w obliq 11:03:13 CDT CPT-Cryo Cryotherapy 08:27:16 ACID CORRECTION HAND CPT-45075 Administration single or combination vaccine inc oral 10 :56:34 CDT CPT-62720 Influenza High Dose age 65+ 10:56:34 CDT
--- OUTSIDE RECORDS SUMMARY | 2018-03-31 19:17 | XMS REPORT | Clinical Summary ---
Author Author Admin, RAFFI Organization [facility] Address Unknown Phone Unavailable Allergies, Adverse Reactions, Alerts Allergy Name Reaction Description Start Date Severity Status Provider No Known Allergies Conditions or Problems Problem Name Problem Code [...] ICD-466.0 Inactive Simon Castillo MD Obesity ICD-278.00 Kerry Castillo MD 2013 BENIGN PROSTATIC HYPERTROPHY, MILD, HX OF ICD-V13.89 Kerry Castillo MD Medication List Medication Instructions Start Date Stop Date Generic Name NDC Status Provider Patient Instruction FLONASE 50 MCG/ACT SUSP 2 puffs in each nostril daily FLUTICASONE PROPIONATE 36139070176 Active Simon Castillo MD Active CLOTRIMAZOLE 1 % EXT CREA Apply to affected area of feet twice daily PRN Rash CLOTRIMAZOLE 67580494847 Active Simon Castillo MD Active SYMBICORT 160-4.5 MCG/ACT AERO 2 puff BID BUDESONIDE- FORMOTEROL FUMARATE 64433353578 Active Simon Castillo MD Active PREDNISONE 20 MG TAB 2 tabs daily for 3 days, 1 tab daily for 3 days, 1/2 tab daily for 2 days PREDNISONE 46817171428 No Longer Active Simon Castillo MD Active AZITHROMYCIN 250 MG TABS 2 po qd x 1 day, then 1 po qd x 4 days AZITHROMYCIN 00397852761 No Longer Active Simon Castillo MD Active LISINOPRIL 10 MG TABS 1 tablet by mouth daily LISINOPRIL 57058264278 Active Simon Castillo MD Active GLIMEPIRIDE 1 MG TABS 1 po q a.m. GLIMEPIRIDE 13234076973 Active Simon Castillo MD Active CARVEDILOL 6.25 MG TABS 1 po BID CARVEDILOL 02479729497 Active Simon Castillo MD Active LISINOPRIL-HYDROCHLOROTHIAZIDE 20-12.5 MG TABS 1/2 tab by mouth daily LISINOPRIL-HYDROCHLOROTHIAZIDE 13279560925 No Longer Active Simon Castillo MD Active PREDNISONE 5 MG TABS 1 po qod PREDNISONE 07732114167 Active Siomn Castillo MD Active TRAMADOL HCL 50 MG TABS 1-2 tablets every 6 hours as needed for pain TRAMADOL HCL 60879838181 Active Simon Castillo MD Active PREDNISONE 5 MG TAB Take one po qod PREDNISONE 86774636559 No Longer Active Simon Castillo MD Active GLYBURIDE 5 MG TAB Take one by mouth daily GLYBURIDE 48758174483 No Longer Active Simon Castillo MD Active LEVAQUIN 750 MG TABS 1 po qod x 5 doses LEVOFLOXACIN 06615415338 No Longer Active Simon Castillo MD Active CETIRIZINE HCL 10 MG TABS 1 po qd as needed for allergies CETIRIZINE HCL 98295337906 No Longer Active Simon Castillo MD Active FISH OIL 1000 MG CPDR 1 pill by mouth twice daily for cholesterol OMEGA -3 FATTY ACIDS 08890665761 Active Simon Castillo MD Active BILBERRY CAPS 1 tab daily BILBERRY (VACCINIUM MYRTILLUS) CAPS 86011624706 Active Simon Castillo MD Active ATENOLOL 50 MG TABS Take one by mouth daily ATENOLOL 69399334362 No Longer Active Simon Castillo MD Active FLONASE 50 MCG/ACT SUSP 2 puffs in each nostril daily FLUTICASONE PROPIONATE 28159549551 No Longer Active Simon Castillo MD Active GLYBURIDE 5 MG TAB Take one by mouth daily GLYBURIDE 98913347464 No Longer Active Simon Castillo MD Active SYMBICORT 80-4.5 MCG/ACT AERO 2 puffs twice a day BUDESONIDE-FORMOTEROL FUMARATE 72006874252 No Longer Active Simon Castillo MD Active PREDNISONE 20 MG TAB 2 tabs daily for 4 days, 1 tab daily for 4 days, 1/2 tab daily for 4 days PREDNISONE 50581097049 No Longer Active Simon Castillo MD Active AMOXICILLIN 500 MG CAPS 2 po BID x 10 days AMOXICILLIN 80835905418 No Longer Active Simon Castillo MD Active METFORMIN HCL 1000 MG TABS 1 by mounth twice a day METFORMIN HCL 34996633861 No Longer Active Simon Castillo MD Active LUTEIN-ZEAXANTHIN 6-1 MG TABS Take 2 by mouth daily LUTEIN-ZEAXANTHIN 24748345945 Active Simon Castillo MD Active IBUPROFEN 800 MG TABS Take 1 tab every 6 hrs prn IBUPROFEN 34382643742 No Longer Active Simon Castillo MD Active GLYBURIDE 2.5 MG TABS Take one by mouth daily GLYBURIDE 32962143169 No Longer Active Simon Castillo MD Active LANCETS MISC 2 qd LANCETS 16485371337 Active Pamela Conde Active ACACIA CONTOUR TEST STRP Use with testing twice daily GLUCOSE BLOOD 74250186564 Active Pamela Conde Active ACACIA ASPIRIN 325 MG TABS Take one by mouth daily ASPIRIN 27316513368 Active Pamela Conde Active GLYBURIDE 2.5 MG TABS Take one by mouth daily GLYBURIDE 2.5 MG TABS 394524 GLYBURIDE Inactive PREDNISONE 20 MG TAB 2 tabs daily for 4 days, 1 tab daily for 4 days, 1/2 tab daily for 4 days PREDNISONE 20 MG TAB 766513 PREDNISONE Inactive SYMBICORT 80-4.5 MCG/ACT AERO 2 puffs twice a day SYMBICORT 80-4.5 MCG/ACT AERO BUDESONIDE-FORMOTEROL FUMARATE Inactive FLONASE 50 MCG/ACT SUSP 2 puffs in each nostril daily FLONASE 50 MCG/ACT SUSP FLUTICASONE PROPIONATE Inactive ATENOLOL 50 MG TABS Take one by mouth daily ATENOLOL 50 MG TABS 885809 ATENOLOL Inactive CETIRIZINE HCL 10 MG TABS 1 po qd as needed for allergies CETIRIZINE HCL 10 MG TABS 5568868 CETIRIZINE HCL Inactive LEVAQUIN 750 MG TABS 1 po qod x 5 doses LEVAQUIN 750 MG TABS 309487 LEVOFLOXACIN Inactive GLYBURIDE 5 MG TAB Take one by mouth daily GLYBURIDE 5 MG TAB 042170 GLYBURIDE Inactive PREDNISONE 5 MG TAB Take one po qod PREDNISONE 5 MG TAB 091243 PREDNISONE Inactive AMOXICILLIN 500 MG CAPS 2 po BID x 10 days AMOXICILLIN 500 MG CAPS 348394 AMOXICILLIN Inactive GLYBURIDE 5 MG TAB Take one by mouth daily GLYBURIDE 5 MG TAB 250446 GLYBURIDE Inactive AZITHROMYCIN 250 MG TABS 2 po qd x 1 day, then 1 po qd x 4 days AZITHROMYCIN 250 MG TABS 6580094 AZITHROMYCIN Inactive PREDNISONE 20 MG TAB 2 tabs daily for 3 days, 1 tab daily for 3 days, 1/2 tab daily for 2 days PREDNISONE 20 MG TAB 647470 PREDNISONE Inactive Immunizations Vaccine Administration Date Value [...] Panel - Chemistry sodium, serum 137 mmol/L 559-755 9973/10/14 potassium, serum 5.6 mmol/L 3.5-5.2 chloride, serum 103 mmol/L 98-107 carbon dioxide, venous blood 24.9 mmol/L 21.0-32.0 blood glucose 200 mg/dL 65-110 urea nitrogen, blood 43 mg/dL 7-18 creatinine, serum 2.60 mg/dL 0.60-1.30 calcium, serum 9.1 mg/dL 8.5-10.1 sodium, serum 139 mmol/L 388-385 0634/11/13 potassium, serum 5.8 mmol/L 3.5-5.2 chloride, serum 105 mmol/L 98-107 carbon dioxide, venous blood 22.2 mmol/L 21.0-32.0 blood glucose 156 mg/dL 65-110 urea nitrogen, blood 49 mg/dL 7-18 creatinine, serum 2.30 mg/dL 0.60-1.30 calcium, serum 9.2 mg/dL 8.5-10.1 sodium, serum 140 mmol/L 494-758 3148/12/12 potassium, serum 5.5 mmol/L 3.5-5.2 chloride, serum [...] % 11.6-14.8 platelet count 217 10^3/MM^3 10*3/mm3 257-129 6485/10/14 leukocyte count, blood 9.2 10^3/MM^3 10*3/mm3 4.6-10.2 erythrocyte (RBC) count 4.67 10^6/MM^3 10*6/mm3 4.69-6.13 hemoglobin, blood 13.9 g/dL 13.5-17.5 hematocrit, blood 42.4 % 41.0-53.0 mean corpuscular volume, RBC 91 fL 80-97 mean corpuscular hemoglobin, RBC 29.7 pg 27.0-31.2 mean corpuscular hemoglobin concentration, RBC 32.8 G/DL % 31.8- 35.4 red blood cell distribution width 14.7 % 11.6-14.8 platelet count 214 10^3/MM^3 10*3/mm3 105-529 3009/11/13 leukocyte count, blood 9.7 10^3/MM^3 10*3/mm3 4.6-10.2 [...] HGBA1C - Chemistry sodium, serum 139 mmol/L 257-010 6618/07/09 potassium, serum 5.4 mmol/L 3.5-5.2 chloride, serum [...] Panel - Chemistry sodium, serum 140 mmol/L 091-110 2321/11/17 potassium, serum 5.0 mmol/L 3.5-5.2 chloride, serum 104 mmol/L 98-107 carbon dioxide, venous blood 24.8 mmol/L 21.0-32.0 blood glucose 146 mg/dL 65-110 urea nitrogen, blood 46 mg/dL 7-18 creatinine, serum 2.60 mg/dL 0.60-1.30 calcium, serum 9.2 mg/dL 8.5-10.1 sodium, serum 139 mmol/L 191-027 5230/10/21 potassium, serum 4.7 mmol/L 3.5-5.2 chloride, serum 104 mmol/L 98-107 carbon dioxide, venous blood 26.1 mmol/L 21.0-32.0 blood glucose 148 mg/dL 65-110 urea nitrogen, blood 38 mg/dL 7-18 creatinine, serum 2.60 mg/dL 0.60-1.30 calcium, serum 8.6 mg/dL 8.5-10.1 Encounters Code Encounter Date Provider Facility CPT-74868 Level 4 Est. Patient 08:47:25 CDT Simon Castillo MD [facility] CPT-55929 Level 4 Est. Patient 10:17:25 CDT Simon Castillo MD [facility] CPT-50443 Level 4 Est. Patient 10:10:09 [employer] Simon Castillo MD [facility] CPT-96309 Level 4 Est. Patient 11:48:19 CDT Simon Castillo MD [facility] CPT-33952 Level 4 Est. Patient 08:59:29 CDT Simon Castillo MD [facility] CPT-69352 Level 4 Est. Patient 10:52:51 [employer] Simon Castillo MD [facility] CPT-32698 Level 4 Est. Patient 11:50:30 CDT Simon Castillo MD [facility] CPT-48284 Level 4 Est. Patient 09:54:46 CDT Simon Castillo MD [facility] CPT-07201 Level 3 Est. Patient 11:10:14 CDT Simon Castillo MD [facility] CPT-70685 Level 4 Est. Patient 09:44:02 CDT Simon Castillo MD [facility] CPT-20798 Level 3 Est. Patient 09:27:48 CDT Simon Castillo MD [facility] CPT-16386 Level 3 Est. Patient 09:58:06 [employer] Simon Castillo MD [facility] CPT-23246 Level 3 Est. Patient 09:51:35 CDT Simon Castillo MD [facility] Procedures Code Procedure Name Date Entry Date Standard Description CPT-60255 Venipuncture Draw Fee 08:07:29 [employer] CPT-96692 Venipuncture Draw Fee 09:02:51 [employer] CPT-10145 Venipuncture Draw Fee 12:45:08 [employer] CPT-72925 Venipuncture Draw Fee 09:25:31 CDT CPT-G0008 Administration of Influenza Virus Vaccine 14:41:29 CDT CPT-23090 Fluzone High-Dose Intramuscular Suspension 14:41:29 CDT CPT-Cryo Cryotherapy 11:48:20 CDT CPT-98853 EKG Trac and Interp 09:21:58 CDT CPT-51850 Chest 2V Frontal and Lat 09:21:58 CDT CPT-Cryo Cryotherapy 10:54:51 [employer] CPT-56765 Administration 2+ single or combination vaccines inc oral 10:42:19 CDT CPT-08230 Administration single or combination vaccine inc oral 10 :42:19 CDT CPT-33207 Pneumovax 10:42:19 CDT CPT-01384 Influenza High Dose age 65+ 10:42:19 CDT CPT-04491 Administration single or combination vaccine inc oral 13 :18:54 CDT CPT-35246 Influenza High Dose age 65+ 13:18:54 CDT CPT-93464 Venipuncture Draw Fee 11:53:16 CDT CPT-47731 LS spine comp w obliq 11:03:13 CDT CPT-Cryo Cryotherapy 08:27:16 [employer] CPT-21134 Administration single or combination vaccine inc oral 10 :56:34 CDT CPT-18237 Influenza High Dose age 65+ 10:56:34 CDT
--- OUTSIDE RECORDS SUMMARY | 2018-03-31 19:18 | XMS REPORT | Clinical Summary ---
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.65 Kerry Castillo MD Hand pain, bilateral [...] ORAL TABS 1 po qd PIOGLITAZONE HCL 81423562487 Active Simon Castillo MD Active GLIMEPIRIDE 4 MG ORAL TABS 1 po BID GLIMEPIRIDE 05441988638 Active Simon Castillo MD Active ASPIRIN EC 81 MG ORAL TBEC 1 po qd ASPIRIN 64536764910 Active Simon Castillo MD Active CLOTRIMAZOLE 1 % EXT CREA Apply to affected area of feet twice daily PRN Rash CLOTRIMAZOLE 89786339774 No Longer Active Simon Castillo MD Active PREDNISONE 5 MG TAB 1 po BID PREDNISONE 79445257116 Active Simon Castillo MD Active FISH OIL 1000 MG CPDR 1 po BID OMEGA-3 FATTY ACIDS 58662516024 Active Simon Castillo MD Active LISINOPRIL 10 MG TABS 1 p qd LISINOPRIL 81736124955 Active Simon Castillo MD Active CLARITIN 10 MG TAB 1 tablet by mouth daily as needed for allergies LORATADINE 47520334587 No Longer Active Simon Castillo MD Active TRIAMCINOLONE ACETONIDE 0.1 % OINT Apply to affected areas TID for up to 2 weeks TRIAMCINOLONE ACETONIDE 40451828519 No Longer Active Simon Castillo MD Active LASIX 20 MG TAB 1 tablet by mouth daily x 2 days FUROSEMIDE 21500099806 No Longer Active Simon Castillo MD Active SULFASALAZINE 500 MG ORAL TBEC 2 tabs BID SULFASALAZINE 85519722321 No Longer Active Neto Oshea DO Active PREDNISONE 20 MG TAB 2 tabs daily for 3 days, 1 tab daily for 3 days, 1/2 tab daily for 2 days PREDNISONE 77954122708 No Longer Active Giles Salcidol [employer] Active PREDNISONE 20 MG TAB 1 tablet daily for airway inflammation 02/25 PREDNISONE 03206444575 No Longer Active Jillina Frazell [employer] Active AZITHROMYCIN 250 MG TABS 2 po qd x 1 day, then 1 po qd x 4 days AZITHROMYCIN 49466410571 No Longer Active Jillina Frazell [employer] Active HYDROCODONE-ACETAMINOPHEN 5-325 MG TABS 1 tab by mouth 8 hours as needed for pain HYDROCODONE-ACETAMINOPHEN 07299144499 Active Simon Castillo MD Active TRAMADOL HCL 50 MG TABS 1 po q6hr PRN Pain TRAMADOL HCL 69885552740 No Longer Active Simon Castillo MD Active PREDNISONE 5 MG TABS 1 po qod PREDNISONE 74371995553 No Longer Active Simon Castillo MD Active SYMBICORT 160-4.5 MCG/ACT AERO 2 puff BID BUDESONIDE- FORMOTEROL FUMARATE 32803916235 No Longer Active Simon Castillo MD Active FLONASE 50 MCG/ACT SUSP 2 puffs in each nostril daily FLUTICASONE PROPIONATE 22472434308 No Longer Active Simon Castillo MD Active PREDNISONE 20 MG TAB 2 tabs daily for 5 days, then 1 daily for 5 days PREDNISONE 84514430241 No Longer Active Simon Castillo MD Active PREDNISONE 20 MG TAB 2 tabs daily for 5 days, then 1 daily for 5 days, then 0.5 for 4 days PREDNISONE 75901720255 No Longer Active Simon Castillo MD Active PREDNISONE 20 MG TAB 2 tabs daily for 3 days, 1 tab daily for 3 days, 1/2 tab daily for 2 days PREDNISONE 34810062233 No Longer Active Simon Castillo MD Active AZITHROMYCIN 250 MG TABS 2 po qd x 1 day, then 1 po qd x 4 days AZITHROMYCIN 69737398948 No Longer Active Simon Castillo MD Active CARVEDILOL 6.25 MG TABS 1 po BID CARVEDILOL 19189442879 Active Simon Castillo MD Active LISINOPRIL-HYDROCHLOROTHIAZIDE 20-12.5 MG TABS 1/2 tab by mouth daily LISINOPRIL-HYDROCHLOROTHIAZIDE 71170560091 No Longer Active Simon Castillo MD Active TRAMADOL HCL 50 MG TABS 1-2 tablets every 6 hours as needed for pain TRAMADOL HCL 21212756009 Active Giles Tatum APRN Active PREDNISONE 5 MG TAB Take one po qod PREDNISONE 07370044601 No Longer Active Simon Castillo MD Active GLYBURIDE 5 MG TAB Take one by mouth daily GLYBURIDE 13869371725 No Longer Active Simon Castillo MD Active LEVAQUIN 750 MG TABS 1 po qod x 5 doses LEVOFLOXACIN 48655699702 No Longer Active Simon Castillo MD Active CETIRIZINE HCL 10 MG TABS 1 po qd as needed for allergies CETIRIZINE HCL 49888332743 No Longer Active Simon Castillo MD Active BILBERRY CAPS 1 tab daily BILBERRY (VACCINIUM MYRTILLUS) CAPS 35133765845 Active Simon Castillo MD Active ATENOLOL 50 MG TABS Take one by mouth daily ATENOLOL 97920707206 No Longer Active Simon Castillo MD Active FLONASE 50 MCG/ACT SUSP 2 puffs in each nostril daily FLUTICASONE PROPIONATE 67710728474 No Longer Active Simon Castillo MD Active GLYBURIDE 5 MG TAB Take one by mouth daily GLYBURIDE 86520865913 No Longer Active Simon Castillo MD Active SYMBICORT 80-4.5 MCG/ACT AERO 2 puffs twice a day BUDESONIDE-FORMOTEROL FUMARATE 40222865041 No Longer Active Simon Castillo MD Active PREDNISONE 20 MG TAB 2 tabs daily for 4 days, 1 tab daily for 4 days, 1/2 tab daily for 4 days PREDNISONE 88552888070 No Longer Active Simon Castillo MD Active AMOXICILLIN 500 MG CAPS 2 po BID x 10 days AMOXICILLIN 49013190359 No Longer Active Simon Castillo MD Active METFORMIN HCL 1000 MG TABS 1 by mount twice a day METFORMIN HCL 95577378208 No Longer Active Simon Castillo MD Active LUTEIN-ZEAXANTHIN 6-1 MG TABS Take 2 by mouth daily LUTEIN-ZEAXANTHIN 45734963814 Active Simon Castillo MD Active IBUPROFEN 800 MG TABS Take 1 tab every 6 hrs prn IBUPROFEN 58739454717 No Longer Active Simon Castillo MD Active GLYBURIDE 2.5 MG TABS Take one by mouth daily GLYBURIDE 39242355771 No Longer Active Simon Castillo MD Active LANCETS MISC 2 qd LANCETS 70320876108 Active Pamela Conde Active ACACIA CONTOUR TEST STRP Use with testing twice daily GLUCOSE BLOOD 18436888019 Active Simon Castillo MD Active GLYBURIDE 2.5 MG TABS Take one by mouth daily GLYBURIDE 2.5 MG TABS 012929 GLYBURIDE Inactive PREDNISONE 20 MG TAB 2 tabs daily for 4 days, 1 tab daily for 4 days, 1/2 tab daily for 4 days PREDNISONE 20 MG TAB 952857 PREDNISONE Inactive SYMBICORT 80-4.5 MCG/ACT AERO 2 puffs twice a day SYMBICORT 80-4.5 MCG/ACT AERO BUDESONIDE-FORMOTEROL FUMARATE Inactive FLONASE 50 MCG/ACT SUSP 2 puffs in each nostril daily FLONASE 50 MCG/ACT SUSP 0597884 FLUTICASONE PROPIONATE Inactive ATENOLOL 50 MG TABS Take one by mouth daily ATENOLOL 50 MG TABS 171312 ATENOLOL Inactive CETIRIZINE HCL 10 MG TABS 1 po qd as needed for allergies CETIRIZINE HCL 10 MG TABS 2626227 CETIRIZINE HCL Inactive LEVAQUIN 750 MG TABS 1 po qod x 5 doses LEVAQUIN 750 MG TABS 632343 LEVOFLOXACIN Inactive GLYBURIDE 5 MG TAB Take one by mouth daily GLYBURIDE 5 MG TAB 666378 GLYBURIDE Inactive PREDNISONE 5 MG TAB Take one po qod PREDNISONE 5 MG TAB 691115 PREDNISONE Inactive PREDNISONE 20 MG TAB 2 tabs daily for 5 days, then 1 daily for 5 days PREDNISONE 20 MG TAB 494259 PREDNISONE Inactive FLONASE 50 MCG/ACT SUSP 2 puffs in each nostril daily FLONASE 50 MCG/ACT SUSP 2111883 FLUTICASONE PROPIONATE Inactive SYMBICORT 160-4.5 MCG/ACT AERO 2 puff BID SYMBICORT 160-4.5 MCG/ACT AERO BUDESONIDE-FORMOTEROL FUMARATE Inactive PREDNISONE 5 MG TABS 1 po qod PREDNISONE 5 MG TABS 634473 PREDNISONE Inactive PREDNISONE 20 MG TAB 1 tablet daily for airway inflammation 02/25 PREDNISONE 20 MG TAB 191355 PREDNISONE Inactive SULFASALAZINE 500 MG ORAL TBEC 2 tabs BID SULFASALAZINE 500 MG ORAL TBEC 945413 SULFASALAZINE Inactive LASIX 20 MG TAB 1 tablet by mouth daily x 2 days LASIX 20 MG TAB 886759 FUROSEMIDE Inactive CLARITIN 10 MG TAB 1 tablet by mouth daily as needed for allergies CLARITIN 10 MG TAB 096157 LORATADINE Inactive CLOTRIMAZOLE 1 % EXT CREA Apply to affected area of feet twice daily PRN Rash CLOTRIMAZOLE 1 % EXT CREA 989415 CLOTRIMAZOLE Inactive AMOXICILLIN 500 MG CAPS 2 po BID x 10 days AMOXICILLIN 500 MG CAPS 095176 AMOXICILLIN Inactive GLYBURIDE 5 MG TAB Take one by mouth daily GLYBURIDE 5 MG TAB 667260 GLYBURIDE Inactive AZITHROMYCIN 250 MG TABS 2 po qd x 1 day, then 1 po qd x 4 days AZITHROMYCIN 250 MG TABS 8726441 AZITHROMYCIN Inactive PREDNISONE 20 MG TAB 2 tabs daily for 3 days, 1 tab daily for 3 days, 1/2 tab daily for 2 days PREDNISONE 20 MG TAB 951697 PREDNISONE Inactive PREDNISONE 20 MG TAB 2 tabs daily for 5 days, then 1 daily for 5 days, then 0.5 for 4 days PREDNISONE 20 MG TAB 162787 PREDNISONE Inactive AZITHROMYCIN 250 MG TABS 2 po qd x 1 day, then 1 po qd x 4 days AZITHROMYCIN 250 MG TABS 9225422 AZITHROMYCIN Inactive PREDNISONE 20 MG TAB 2 tabs daily for 3 days, 1 tab daily for 3 days, 1/2 tab daily for 2 days PREDNISONE 20 MG TAB 829410 PREDNISONE Inactive TRIAMCINOLONE ACETONIDE 0.1 % OINT Apply to affected areas TID for up to 2 weeks TRIAMCINOLONE ACETONIDE 0.1 % OINT 5224220 TRIAMCINOLONE ACETONIDE Inactive Immunizations Vaccine Administration Date [...] Panel - Chemistry cholesterol, serum 126 mg/dL 681-492 3327/02/07 triglyceride, serum, fasting 83 mg/dL 30-200 HDL cholesterol, serum 70 mg/dL 32-96 LDL cholesterol, serum 39 mg/dL 0-130 hemoglobin A1C, blood, as % of total hemoglobin 8.3 % 4.3-6.0 sodium, serum 141 mmol/L 575-205 2694/02/07 carbon dioxide, venous blood 26.0 mmol/L 21.0-32.0 [...] 0.00-1.00 Encounters Code Encounter Date Provider Facility CPT-02136 Level 4 Est. Patient 09:54:08 CDT Simon Castillo MD [facility] CPT-19186 Level 4 Est. Patient 16:11:23 CDT Simon Castillo MD [facility] CPT-39219 Level 4 Est. Patient 09:29:28 LEAD MANUFACTURING TECHNICIAN Simon Castillo MD [facility] CPT-33970 Level 3 Est. Patient 09:18:25 CDT Simon Castillo MD [facility] CPT-11661 Level 4 Est. Patient 11:51:23 CDT Simon Castillo MD [facility] CPT-77382 Level 4 Est. Patient 14:32:04 CDT Neto Oshea DO [facility] CPT-41604 Level 3 Est. Patient 08:41:43 CDT Jonathanviratriston Salcidoalejandrina [facility] CPT-69285 Level 3 Est. Patient 08:40:53 CDT Giles Salcidol [facility] CPT-29583 Level 3 Est. Patient 08:36:52 CDT Giles Salcidol [facility] CPT-17615 Level 3 Est. Patient 09:08:44 CDT Giles Salcidol [facility] CPT-49220 Level 4 Est. Patient 09:17:32 LEAD MANUFACTURING TECHNICIAN Simon Castillo MD [facility] CPT-08041 Level 3 Est. Patient 11:22:22 LEAD MANUFACTURING TECHNICIAN Simon Castillo MD [facility] CPT-22386 Level 3 Est. Patient 09:02:14 CDT Simon Castillo MD [facility] CPT-75478 Level 4 Est. Patient 08:47:25 CDT Simon Castillo MD [facility] CPT-74470 Level 4 Est. Patient 10:17:25 CDT Simon Castillo MD [facility] CPT-43796 Level 4 Est. Patient 10:10:09 LEAD MANUFACTURING TECHNICIAN Simon Castillo MD [facility] CPT-76690 Level 4 Est. Patient 11:48:19 CDT Simon Castillo MD [facility] CPT-59361 Level 4 Est. Patient 08:59:29 CDT Simon Castillo MD [facility] CPT-84739 Level 4 Est. Patient 10:52:51 LEAD MANUFACTURING TECHNICIAN Simon Castillo MD [facility] CPT-65475 Level 4 Est. Patient 11:50:30 CDT Simon Castillo MD [facility] CPT-53247 Level 4 Est. Patient 09:54:46 CDT Simon Castillo MD [facility] CPT-07848 Level 3 Est. Patient 11:10:14 CDT Simon Castillo MD [facility] CPT-20629 Level 4 Est. Patient 09:44:02 CDT Simon Castillo MD [facility] CPT-18381 Level 3 Est. Patient 09:27:48 CDT Simon Castillo MD [facility] CPT-86194 Level 3 Est. Patient 09:58:06 LEAD MANUFACTURING TECHNICIAN Simon Castillo MD [facility] CPT-93588 Level 3 Est. Patient 09:51:35 CDT Simon Castillo MD [facility] Procedures Code Procedure Name Date Entry Date Standard Description CPT-17715 Lipid - LAB USE ONLY 17:15:33 CDT CPT-94892 HGBA1C - LAB USE ONLY 17:15:33 CDT CPT-18953 CMP - LAB USE ONLY 17:15:33 CDT CPT-71914 Venipuncture Draw Fee 17:15:33 CDT CPT-TCM Transitional Care Mgmt-High 11:01:28 LEAD MANUFACTURING TECHNICIAN CPT-26870 First Vx - Ix admin for Medicare patients 17:33:39 CDT CPT-66329 Fluzone High-Dose Intramuscular Suspension 17:33:39 CDT CPT-G0438 Initial Annual Wellness Exam 08:57:30 CDT CPT-92588 Chest 2V Frontal and Lat - XRAY USE ONLY 09:00:14 CDT CPT-41935 Venipuncture Draw Fee 13:33:02 CDT CPT-25883 Bone Density 09:37:49 LEAD MANUFACTURING TECHNICIAN CPT-15107 Fluzone High Dose 17:20:42 CDT CPT-41759 Prevnar 13 17:20:42 CDT CPT-50384 Administration 2+ single or combination vaccines inc oral 17:20:42 CDT CPT-21242 Administration single or combination vaccine inc oral 17 :20:42 CDT CPT-76688 Hand comp min 3V 09:24:38 CDT CPT-55106 Venipuncture Draw Fee 08:07:29 LEAD MANUFACTURING TECHNICIAN CPT-61378 Venipuncture Draw Fee 09:02:51 LEAD MANUFACTURING TECHNICIAN CPT-59958 Venipuncture Draw Fee 12:45:08 LEAD MANUFACTURING TECHNICIAN CPT-54593 Venipuncture Draw Fee 09:25:31 CDT CPT-G0008 Administration of Influenza Virus Vaccine 14:41:29 CDT CPT-03628 Fluzone High-Dose Intramuscular Suspension 14:41:29 CDT CPT-Cryo Cryotherapy 11:48:20 CDT CPT-84945 EKG Trac and Interp 09:21:58 CDT CPT-84781 Chest 2V Frontal and Lat 09:21:58 CDT CPT-Cryo Cryotherapy 10:54:51 LEAD MANUFACTURING TECHNICIAN CPT-55708 Administration 2+ single or combination vaccines inc oral 10:42:19 CDT CPT-39375 Administration single or combination vaccine inc oral 10 :42:19 CDT CPT-90555 Pneumovax 10:42:19 CDT CPT-51091 Influenza High Dose age 65+ 10:42:19 CDT CPT-75321 Administration single or combination vaccine inc oral 13 :18:54 CDT CPT-78850 Influenza High Dose age 65+ 13:18:54 CDT CPT-53928 Venipuncture Draw Fee 11:53:16 CDT CPT-36552 LS spine comp w obliq 11:03:13 CDT CPT-Cryo Cryotherapy 08:27:16 LEAD MANUFACTURING TECHNICIAN CPT-71725 Administration single or combination vaccine inc oral 10 :56:34 CDT CPT-13584 Influenza High Dose age 65+ 10:56:34 CDT
--- OUTSIDE RECORDS SUMMARY | 2018-03-31 19:20 | XMS REPORT | Clinical Summary ---
Author Author Admin, RAFFI Salazar [facility] Address Unknown Phone Unavailable [...] of foot Hand pain, bilateral 729.5 Resolved Simno Castillo MD Pain in limb Rheumatoid arthritis [...] Castillo MD SEBORRHEIC KERATOSIS ICD-702.19 Inactive Simon Csatillo MD BRONCHITIS, ACUTE ICD-466.0 Inactive Simon Castillo [...] Tinea pedis ICD-110.4 Inactive Simon Castillo MD Medication List Medication Instructions Start Date Stop Date Generic Name NDC Status Provider Patient Instruction GLIMEPIRIDE 2 MG ORAL TABS 1 po q a.m. GLIMEPIRIDE 98570807352 Active Simon Castillo MD Active HYDROCODONE-ACETAMINOPHEN 5-325 MG TABS 1 tab by mouth 8 hours as needed for pain HYDROCODONE-ACETAMINOPHEN 91546441559 Active Simon Castillo MD Active TRAMADOL HCL 50 MG TABS 1 po q6hr PRN Pain TRAMADOL HCL 04436868955 No Longer Active Simon Castillo MD Active PREDNISONE 5 MG TAB 1-2 tabs daily for rheumatoid arthritis PREDNISONE 00503774851 Active Simon Castillo MD Active PREDNISONE 5 MG TABS 1 po qod PREDNISONE 20164009828 No Longer Active Simon Castillo MD Active SYMBICORT 160-4.5 MCG/ACT AERO 2 puff BID BUDESONIDE- FORMOTEROL FUMARATE 16968471224 No Longer Active Simon Castillo MD Active FLONASE 50 MCG/ACT SUSP 2 puffs in each nostril daily FLUTICASONE PROPIONATE 85058078518 No Longer Active Simon Castillo MD Active PREDNISONE 20 MG TAB 2 tabs daily for 5 days, then 1 daily for 5 days PREDNISONE 85337736662 No Longer Active Simon Castillo MD Active PREDNISONE 20 MG TAB 2 tabs daily for 5 days, then 1 daily for 5 days, then 0.5 for 4 days PREDNISONE 20781873486 No Longer Active Simon Castillo MD Active CLOTRIMAZOLE 1 % EXT CREA Apply to affected area of feet twice daily PRN Rash CLOTRIMAZOLE 39611015796 Active Simon Castillo MD Active PREDNISONE 20 MG TAB 2 tabs daily for 3 days, 1 tab daily for 3 days, 1/2 tab daily for 2 days PREDNISONE 59945557676 No Longer Active Simon Castillo MD Active AZITHROMYCIN 250 MG TABS 2 po qd x 1 day, then 1 po qd x 4 days AZITHROMYCIN 11674453939 No Longer Active Simon Castillo MD Active LISINOPRIL 10 MG TABS 1 tablet by mouth daily LISINOPRIL 86223214291 Active Simon Castillo MD Active CARVEDILOL 6.25 MG TABS 1 po BID CARVEDILOL 11765553828 Active Simon Castillo MD Active LISINOPRIL-HYDROCHLOROTHIAZIDE 20-12.5 MG TABS 1/2 tab by mouth daily LISINOPRIL-HYDROCHLOROTHIAZIDE 43975537016 No Longer Active Simon Castillo MD Active TRAMADOL HCL 50 MG TABS 1-2 tablets every 6 hours as needed for pain TRAMADOL HCL 24511940784 Active Simon Castillo MD Active PREDNISONE 5 MG TAB Take one po qod PREDNISONE 65320676035 No Longer Active Simon Castillo MD Active GLYBURIDE 5 MG TAB Take one by mouth daily GLYBURIDE 49364228345 No Longer Active Simon Castillo MD Active LEVAQUIN 750 MG TABS 1 po qod x 5 doses LEVOFLOXACIN 32715252987 No Longer Active Simon Castillo MD Active CETIRIZINE HCL 10 MG TABS 1 po qd as needed for allergies CETIRIZINE HCL 48260779853 No Longer Active Simon Castillo MD Active FISH OIL 1000 MG CPDR 1 pill by mouth twice daily for cholesterol OMEGA -3 FATTY ACIDS 28717851924 Active Simon Castillo MD Active BILBERRY CAPS 1 tab daily BILBERRY (VACCINIUM MYRTILLUS) CAPS 93905354409 Active Simon Castillo MD Active ATENOLOL 50 MG TABS Take one by mouth daily ATENOLOL 67861396300 No Longer Active Simon Castillo MD Active FLONASE 50 MCG/ACT SUSP 2 puffs in each nostril daily FLUTICASONE PROPIONATE 59668671839 No Longer Active Simon Castillo MD Active GLYBURIDE 5 MG TAB Take one by mouth daily GLYBURIDE 40241422940 No Longer Active Simon Castillo MD Active SYMBICORT 80-4.5 MCG/ACT AERO 2 puffs twice a day BUDESONIDE-FORMOTEROL FUMARATE 95934461826 No Longer Active Simon Castillo MD Active PREDNISONE 20 MG TAB 2 tabs daily for 4 days, 1 tab daily for 4 days, 1/2 tab daily for 4 days PREDNISONE 84139271071 No Longer Active Simon Castillo MD Active AMOXICILLIN 500 MG CAPS 2 po BID x 10 days AMOXICILLIN 30551185425 No Longer Active Simon Castillo MD Active METFORMIN HCL 1000 MG TABS 1 by mounth twice a day METFORMIN HCL 16137991350 No Longer Active Simon Castillo MD Active LUTEIN-ZEAXANTHIN 6-1 MG TABS Take 2 by mouth daily LUTEIN-ZEAXANTHIN 39151300640 Active Simon Castillo MD Active IBUPROFEN 800 MG TABS Take 1 tab every 6 hrs prn IBUPROFEN 35613956432 No Longer Active Simon Castillo MD Active GLYBURIDE 2.5 MG TABS Take one by mouth daily GLYBURIDE 33250354071 No Longer Active Simon Castillo MD Active LANCETS MISC 2 qd LANCETS 17285751445 Active Pamela Conde Active ACACIA CONTOUR TEST STRP Use with testing twice daily GLUCOSE BLOOD 39062572425 Active Simon Castillo MD Active ACACIA ASPIRIN 325 MG TABS Take one by mouth daily ASPIRIN 43902335445 Active Pamela Conde Active GLYBURIDE 2.5 MG TABS Take one by mouth daily GLYBURIDE 2.5 MG TABS 116300 GLYBURIDE Inactive PREDNISONE 20 MG TAB 2 tabs daily for 4 days, 1 tab daily for 4 days, 1/2 tab daily for 4 days PREDNISONE 20 MG TAB 400862 PREDNISONE Inactive SYMBICORT 80-4.5 MCG/ACT AERO 2 puffs twice a day SYMBICORT 80-4.5 MCG/ACT AERO BUDESONIDE-FORMOTEROL FUMARATE Inactive FLONASE 50 MCG/ACT SUSP 2 puffs in each nostril daily FLONASE 50 MCG/ACT SUSP FLUTICASONE PROPIONATE Inactive ATENOLOL 50 MG TABS Take one by mouth daily ATENOLOL 50 MG TABS 198060 ATENOLOL Inactive CETIRIZINE HCL 10 MG TABS 1 po qd as needed for allergies CETIRIZINE HCL 10 MG TABS 9627875 CETIRIZINE HCL Inactive LEVAQUIN 750 MG TABS 1 po qod x 5 doses LEVAQUIN 750 MG TABS 458824 LEVOFLOXACIN Inactive GLYBURIDE 5 MG TAB Take one by mouth daily GLYBURIDE 5 MG TAB 306850 GLYBURIDE Inactive PREDNISONE 5 MG TAB Take one po qod PREDNISONE 5 MG TAB 376105 PREDNISONE Inactive PREDNISONE 20 MG TAB 2 tabs daily for 5 days, then 1 daily for 5 days PREDNISONE 20 MG TAB 960622 PREDNISONE Inactive FLONASE 50 MCG/ACT SUSP 2 puffs in each nostril daily FLONASE 50 MCG/ACT SUSP FLUTICASONE PROPIONATE Inactive SYMBICORT 160-4.5 MCG/ACT AERO 2 puff BID SYMBICORT 160-4.5 MCG/ACT AERO BUDESONIDE-FORMOTEROL FUMARATE Inactive PREDNISONE 5 MG TABS 1 po qod PREDNISONE 5 MG TABS 713726 PREDNISONE Inactive AMOXICILLIN 500 MG CAPS 2 po BID x 10 days AMOXICILLIN 500 MG CAPS 720813 AMOXICILLIN Inactive GLYBURIDE 5 MG TAB Take one by mouth daily GLYBURIDE 5 MG TAB 424543 GLYBURIDE Inactive AZITHROMYCIN 250 MG TABS 2 po qd x 1 day, then 1 po qd x 4 days AZITHROMYCIN 250 MG TABS 9501021 AZITHROMYCIN Inactive PREDNISONE 20 MG TAB 2 tabs daily for 3 days, 1 tab daily for 3 days, 1/2 tab daily for 2 days PREDNISONE 20 MG TAB 700907 PREDNISONE Inactive PREDNISONE 20 MG TAB 2 tabs daily for 5 days, then 1 daily for 5 days, then 0.5 for 4 days PREDNISONE 20 MG TAB 248798 PREDNISONE Inactive Immunizations Vaccine Administration Date Value [...] Panel - Chemistry sodium, serum 132 mmol/L 299-768 2964/10/26 carbon dioxide, venous blood 22.8 mmol/L 21.0-32.0 [...] Rate - Chemistry sodium, serum 136 mmol/L 368-283 1305/09/18 carbon dioxide, venous blood 24.3 mmol/L 21.0-32.0 [...] HGBA1C - Chemistry sodium, serum 139 mmol/L 361-284 2601/07/09 potassium, serum 5.4 mmol/L 3.5-5.2 chloride, serum [...] 8.5 % 4.3-6.0 sodium, serum 137 mmol/L 180-092 3167/02/12 potassium, serum 5.1 mmol/L 3.5-5.2 chloride, serum 103 mmol/L 98-107 carbon dioxide, venous blood 24.4 mmol/L 21.0-32.0 blood glucose 261 mg/dL 65-110 calcium, serum 9.0 mg/dL 8.5-10.1 urea nitrogen, blood 44 mg/dL 7-18 creatinine, serum 2.37 mg/dL 0.55-1.30 Lab Report: Lipid Panel - Chemistry cholesterol, serum 139 mg/dL 813-766 0196/09/10 triglyceride, serum, fasting 176 mg/dL 30-200 HDL cholesterol, serum 45 mg/dL 32-96 LDL cholesterol, serum 59 mg/dL 0-130 Lab Report: MICROALBUMIN - Chemistry albumin/creatinine ratio, urine 30 - 300 mg/g mg/g{creat} 0-29 Lab Report: MICROALBUMIN - Lab microalbumin, urine 30 0-19 Lab Report: Prostatic Specific Ag - Chemistry prostate specific antigen 1.52 ng/mL 0.00-4.00 Encounters Code Encounter Date Provider Facility CPT-28046 Level 4 Est. Patient 09:17:32 TURN MACHINE OPERATOR Simon Castillo MD [facility] CPT-39938 Level 3 Est. Patient 11:22:22 TURN MACHINE OPERATOR Simon Castillo MD [facility] CPT-75837 Level 3 Est. Patient 09:02:14 CDT Simon Castillo MD [facility] CPT-08493 Level 4 Est. Patient 08:47:25 CDT Simon Castillo MD [facility] CPT-98579 Level 4 Est. Patient 10:17:25 CDT Simon Castillo MD [facility] CPT-31766 Level 4 Est. Patient 10:10:09 TURN MACHINE OPERATOR Simon Castillo MD [facility] CPT-47147 Level 4 Est. Patient 11:48:19 CDT Simon Castillo MD [facility] CPT-37984 Level 4 Est. Patient 08:59:29 CDT Simon Castillo MD [facility] CPT-15251 Level 4 Est. Patient 10:52:51 TURN MACHINE OPERATOR Simon Castillo MD [facility] CPT-56270 Level 4 Est. Patient 11:50:30 CDT Simon Castillo MD [facility] CPT-82530 Level 4 Est. Patient 09:54:46 CDT Simon Castillo MD [facility] CPT-36169 Level 3 Est. Patient 11:10:14 CDT Simon Castillo MD [facility] CPT-95328 Level 4 Est. Patient 09:44:02 CDT Simon Castillo MD [facility] CPT-35278 Level 3 Est. Patient 09:27:48 CDT Simon Castillo MD [facility] CPT-43216 Level 3 Est. Patient 09:58:06 TURN MACHINE OPERATOR Simon Castillo MD [facility] CPT-00127 Level 3 Est. Patient 09:51:35 CDT Simon Castillo MD [facility] Procedures Code Procedure Name Date Entry Date Standard Description CPT-56035 Bone Density 09:37:49 TURN MACHINE OPERATOR CPT-18757 Fluzone High Dose 17:20:42 CDT CPT-33003 Prevnar 13 17:20:42 CDT CPT-16378 Administration 2+ single or combination vaccines inc oral 17:20:42 CDT CPT-09441 Administration single or combination vaccine inc oral 17 :20:42 CDT CPT-13760 Hand comp min 3V 09:24:38 CDT CPT-75166 Venipuncture Draw Fee 08:07:29 TURN MACHINE OPERATOR CPT-10743 Venipuncture Draw Fee 09:02:51 TURN MACHINE OPERATOR CPT-87991 Venipuncture Draw Fee 12:45:08 TURN MACHINE OPERATOR CPT-47379 Venipuncture Draw Fee 09:25:31 CDT CPT-G0008 Administration of Influenza Virus Vaccine 14:41:29 CDT CPT-19023 Fluzone High-Dose Intramuscular Suspension 14:41:29 CDT CPT-Cryo Cryotherapy 11:48:20 CDT CPT-18383 EKG Trac and Interp 09:21:58 CDT CPT-40316 Chest 2V Frontal and Lat 09:21:58 CDT CPT-Cryo Cryotherapy 10:54:51 TURN MACHINE OPERATOR CPT-03255 Administration 2+ single or combination vaccines inc oral 10:42:19 CDT CPT-95448 Administration single or combination vaccine inc oral 10 :42:19 CDT CPT-02129 Pneumovax 10:42:19 CDT CPT-17031 Influenza High Dose age 65+ 10:42:19 CDT CPT-47631 Administration single or combination vaccine inc oral 13 :18:54 CDT CPT-10379 Influenza High Dose age 65+ 13:18:54 CDT CPT-89399 Venipuncture Draw Fee 11:53:16 CDT CPT-81398 LS spine comp w obliq 11:03:13 CDT CPT-Cryo Cryotherapy 08:27:16 TURN MACHINE OPERATOR CPT-14179 Administration single or combination vaccine inc oral 10 :56:34 CDT CPT-05161 Influenza High Dose age 65+ 10:56:34 CDT
--- OUTSIDE RECORDS SUMMARY | 2018-03-31 19:21 | XMS REPORT | Clinical Summary ---
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 Kerry Castillo MD Hand [...] MG ORAL TABS 1 po qd BUMETANIDE 85193084545 Active Simon Castillo MD Active AUGMENTIN 875-125 MG ORAL TABS 1 po BID x 10 days AMOXICILLIN-POT CLAVULANATE 38881833042 Active Simon Castillo MD Active PIOGLITAZONE HCL 30 MG ORAL TABS 1 po qd PIOGLITAZONE HCL 58484925695 Active Simon Castillo MD Active GLIMEPIRIDE 4 MG ORAL TABS 1 po BID GLIMEPIRIDE 26404837003 Active Simon Castillo MD Active ASPIRIN EC 81 MG ORAL TBEC 1 po qd ASPIRIN 25619794924 Active Simon Castillo MD Active CLOTRIMAZOLE 1 % EXT CREA Apply to affected area of feet twice daily PRN Rash CLOTRIMAZOLE 15992852760 No Longer Active Simon Castillo MD Active PREDNISONE 5 MG TAB 1 po BID PREDNISONE 35073454026 Active Simon Castillo MD Active FISH OIL 1000 MG CPDR 1 po BID OMEGA-3 FATTY ACIDS 33722428676 Active Simon Castillo MD Active LISINOPRIL 10 MG TABS 1 p qd LISINOPRIL 19325675304 Active Simon Castillo MD Active CLARITIN 10 MG TAB 1 tablet by mouth daily as needed for allergies LORATADINE 19655429430 No Longer Active Simon Castillo MD Active TRIAMCINOLONE ACETONIDE 0.1 % OINT Apply to affected areas TID for up to 2 weeks TRIAMCINOLONE ACETONIDE 75305229854 No Longer Active Simon Castillo MD Active LASIX 20 MG TAB 1 tablet by mouth daily x 2 days FUROSEMIDE 48838945416 No Longer Active Simon Castillo MD Active SULFASALAZINE 500 MG ORAL TBEC 2 tabs BID SULFASALAZINE 89544425362 No Longer Active Neto Oshea DO Active PREDNISONE 20 MG TAB 2 tabs daily for 3 days, 1 tab daily for 3 days, 1/2 tab daily for 2 days PREDNISONE 84196445765 No Longer Active Jillina Frazell GRAIN LOADER Active PREDNISONE 20 MG TAB 1 tablet daily for airway inflammation 02/25 PREDNISONE 35489342455 No Longer Active Jillina Frazell GRAIN LOADER Active AZITHROMYCIN 250 MG TABS 2 po qd x 1 day, then 1 po qd x 4 days AZITHROMYCIN 15840561512 No Longer Active Jillina Frazell GRAIN LOADER Active HYDROCODONE-ACETAMINOPHEN 5-325 MG TABS 1 tab by mouth 8 hours as needed for pain HYDROCODONE-ACETAMINOPHEN 26203383467 Active Simon Castillo MD Active TRAMADOL HCL 50 MG TABS 1 po q6hr PRN Pain TRAMADOL HCL 90198338644 No Longer Active Simon Castillo MD Active PREDNISONE 5 MG TABS 1 po qod PREDNISONE 45258354900 No Longer Active Simon Castillo MD Active SYMBICORT 160-4.5 MCG/ACT AERO 2 puff BID BUDESONIDE- FORMOTEROL FUMARATE 10722366315 No Longer Active Simon Castillo MD Active FLONASE 50 MCG/ACT SUSP 2 puffs in each nostril daily FLUTICASONE PROPIONATE 14339986249 No Longer Active Simon Castillo MD Active PREDNISONE 20 MG TAB 2 tabs daily for 5 days, then 1 daily for 5 days PREDNISONE 16256142356 No Longer Active Simon Castillo MD Active PREDNISONE 20 MG TAB 2 tabs daily for 5 days, then 1 daily for 5 days, then 0.5 for 4 days PREDNISONE 86511131942 No Longer Active Simon Castillo MD Active PREDNISONE 20 MG TAB 2 tabs daily for 3 days, 1 tab daily for 3 days, 1/2 tab daily for 2 days PREDNISONE 59366674127 No Longer Active Simon Castillo MD Active AZITHROMYCIN 250 MG TABS 2 po qd x 1 day, then 1 po qd x 4 days AZITHROMYCIN 27381476709 No Longer Active Simon Castillo MD Active CARVEDILOL 6.25 MG TABS 1 po BID CARVEDILOL 46947946370 Active Simon Castillo MD Active LISINOPRIL-HYDROCHLOROTHIAZIDE 20-12.5 MG TABS 1/2 tab by mouth daily LISINOPRIL-HYDROCHLOROTHIAZIDE 95256632750 No Longer Active Simon Castillo MD Active TRAMADOL HCL 50 MG TABS 1-2 tablets every 6 hours as needed for pain TRAMADOL HCL 98585559283 Active Giles Tatum APRN Active PREDNISONE 5 MG TAB Take one po qod PREDNISONE 98294579807 No Longer Active Simon Castillo MD Active GLYBURIDE 5 MG TAB Take one by mouth daily GLYBURIDE 40230439801 No Longer Active Simon Castillo MD Active LEVAQUIN 750 MG TABS 1 po qod x 5 doses LEVOFLOXACIN 85254441339 No Longer Active Simon Castillo MD Active CETIRIZINE HCL 10 MG TABS 1 po qd as needed for allergies CETIRIZINE HCL 91411992933 No Longer Active Simon Castillo MD Active BILBERRY CAPS 1 tab daily BILBERRY (VACCINIUM MYRTILLUS) CAPS 16140108974 Active Simon Castillo MD Active ATENOLOL 50 MG TABS Take one by mouth daily ATENOLOL 17546010403 No Longer Active Simon Castillo MD Active FLONASE 50 MCG/ACT SUSP 2 puffs in each nostril daily FLUTICASONE PROPIONATE 45368137056 No Longer Active Simon Castillo MD Active GLYBURIDE 5 MG TAB Take one by mouth daily GLYBURIDE 46587579785 No Longer Active Simon Castillo MD Active SYMBICORT 80-4.5 MCG/ACT AERO 2 puffs twice a day BUDESONIDE-FORMOTEROL FUMARATE 19025228948 No Longer Active Simon Castillo MD Active PREDNISONE 20 MG TAB 2 tabs daily for 4 days, 1 tab daily for 4 days, 1/2 tab daily for 4 days PREDNISONE 20291585161 No Longer Active Simon Castillo MD Active AMOXICILLIN 500 MG CAPS 2 po BID x 10 days AMOXICILLIN 73384489745 No Longer Active Simon Castillo MD Active METFORMIN HCL 1000 MG TABS 1 by mounth twice a day METFORMIN HCL 24790897985 No Longer Active Simon Castillo MD Active LUTEIN-ZEAXANTHIN 6-1 MG TABS Take 2 by mouth daily LUTEIN-ZEAXANTHIN 77641464759 Active Simon Castillo MD Active IBUPROFEN 800 MG TABS Take 1 tab every 6 hrs prn IBUPROFEN 52194267802 No Longer Active Simon Castillo MD Active GLYBURIDE 2.5 MG TABS Take one by mouth daily GLYBURIDE 61401235753 No Longer Active Simon Castlilo MD Active LANCETS MISC 2 qd LANCETS 43838586721 Active Pamela Conde Active ACACIA CONTOUR TEST STRP Use with testing twice daily GLUCOSE BLOOD 87618167144 Active Simon Castillo MD Active GLYBURIDE 2.5 MG TABS Take one by mouth daily GLYBURIDE 2.5 MG TABS 074229 GLYBURIDE Inactive PREDNISONE 20 MG TAB 2 tabs daily for 4 days, 1 tab daily for 4 days, 1/2 tab daily for 4 days PREDNISONE 20 MG TAB 880150 PREDNISONE Inactive SYMBICORT 80-4.5 MCG/ACT AERO 2 puffs twice a day SYMBICORT 80-4.5 MCG/ACT AERO BUDESONIDE-FORMOTEROL FUMARATE Inactive FLONASE 50 MCG/ACT SUSP 2 puffs in each nostril daily FLONASE 50 MCG/ACT SUSP 7226520 FLUTICASONE PROPIONATE Inactive ATENOLOL 50 MG TABS Take one by mouth daily ATENOLOL 50 MG TABS 398700 ATENOLOL Inactive CETIRIZINE HCL 10 MG TABS 1 po qd as needed for allergies CETIRIZINE HCL 10 MG TABS 8074122 CETIRIZINE HCL Inactive LEVAQUIN 750 MG TABS 1 po qod x 5 doses LEVAQUIN 750 MG TABS 534725 LEVOFLOXACIN Inactive GLYBURIDE 5 MG TAB Take one by mouth daily GLYBURIDE 5 MG TAB 777491 GLYBURIDE Inactive PREDNISONE 5 MG TAB Take one po qod PREDNISONE 5 MG TAB 982161 PREDNISONE Inactive PREDNISONE 20 MG TAB 2 tabs daily for 5 days, then 1 daily for 5 days PREDNISONE 20 MG TAB 078639 PREDNISONE Inactive FLONASE 50 MCG/ACT SUSP 2 puffs in each nostril daily FLONASE 50 MCG/ACT SUSP 0821441 FLUTICASONE PROPIONATE Inactive SYMBICORT 160-4.5 MCG/ACT AERO 2 puff BID SYMBICORT 160-4.5 MCG/ACT AERO BUDESONIDE-FORMOTEROL FUMARATE Inactive PREDNISONE 5 MG TABS 1 po qod PREDNISONE 5 MG TABS 497063 PREDNISONE Inactive PREDNISONE 20 MG TAB 1 tablet daily for airway inflammation 02/25 PREDNISONE 20 MG TAB 167052 PREDNISONE Inactive SULFASALAZINE 500 MG ORAL TBEC 2 tabs BID SULFASALAZINE 500 MG ORAL [facility] 134424 SULFASALAZINE Inactive LASIX 20 MG TAB 1 tablet by mouth daily x 2 days LASIX 20 MG TAB 142652 FUROSEMIDE Inactive CLARITIN 10 MG TAB 1 tablet by mouth daily as needed for allergies CLARITIN 10 MG TAB 725373 LORATADINE Inactive CLOTRIMAZOLE 1 % EXT CREA Apply to affected area of feet twice daily PRN Rash CLOTRIMAZOLE 1 % EXT CREA 883042 CLOTRIMAZOLE Inactive AMOXICILLIN 500 MG CAPS 2 po BID x 10 days AMOXICILLIN 500 MG CAPS 374552 AMOXICILLIN Inactive GLYBURIDE 5 MG TAB Take one by mouth daily GLYBURIDE 5 MG TAB 917747 GLYBURIDE Inactive AZITHROMYCIN 250 MG TABS 2 po qd x 1 day, then 1 po qd x 4 days AZITHROMYCIN 250 MG TABS 4022526 AZITHROMYCIN Inactive PREDNISONE 20 MG TAB 2 tabs daily for 3 days, 1 tab daily for 3 days, 1/2 tab daily for 2 days PREDNISONE 20 MG TAB 577786 PREDNISONE Inactive PREDNISONE 20 MG TAB 2 tabs daily for 5 days, then 1 daily for 5 days, then 0.5 for 4 days PREDNISONE 20 MG TAB 499534 PREDNISONE Inactive AZITHROMYCIN 250 MG TABS 2 po qd x 1 day, then 1 po qd x 4 days AZITHROMYCIN 250 MG TABS 4236043 AZITHROMYCIN Inactive PREDNISONE 20 MG TAB 2 tabs daily for 3 days, 1 tab daily for 3 days, 1/2 tab daily for 2 days PREDNISONE 20 MG TAB 070755 PREDNISONE Inactive TRIAMCINOLONE ACETONIDE 0.1 % OINT Apply to affected areas TID for up to 2 weeks TRIAMCINOLONE ACETONIDE 0.1 % OINT 7279926 TRIAMCINOLONE ACETONIDE Inactive Immunizations Vaccine Administration Date [...] Panel - Chemistry sodium, serum 140 mmol/L 031-745 6236/07/13 carbon dioxide, venous blood 23.7 mmol/L 21.0-32.0 [...] Panel - Chemistry cholesterol, serum 126 mg/dL 996-127 9659/02/07 triglyceride, serum, fasting 83 mg/dL 30-200 HDL cholesterol, serum 70 mg/dL 32-96 LDL cholesterol, serum 39 mg/dL 0-130 hemoglobin A1C, blood, as % of total hemoglobin 8.3 % 4.3-6.0 sodium, serum 141 mmol/L 242-147 8308/02/07 carbon dioxide, venous blood 26.0 mmol/L 21.0-32.0 [...] 0.00-1.00 Encounters Code Encounter Date Provider Facility CPT-11853 Level 4 Est. Patient 08:48:38 CDT Simon Castillo MD [facility] CPT-50309 Level 4 Est. Patient 09:54:08 CDT Simon Castillo MD [facility] CPT-87325 Level 4 Est. Patient 16:11:23 CDT Simon Castillo MD [facility] CPT-38528 Level 4 Est. Patient 09:29:28 NEUROSURGEON Simon Castillo MD [facility] CPT-40296 Level 3 Est. Patient 09:18:25 CDT Simon Castillo MD [facility] CPT-49804 Level 4 Est. Patient 11:51:23 CDT Smion Castillo MD [facility] CPT-49326 Level 4 Est. Patient 14:32:04 CDT Neto Oshea DO [facility] CPT-79712 Level 3 Est. Patient 08:41:43 CDT Giles Tatum [facility] [place] CPT-82635 Level 3 Est. Patient 08:40:53 CDT Giles Salcidol [facility] [place] CPT-30805 Level 3 Est. Patient 08:36:52 CDT Giles Salcidol [facility] [place] CPT-12364 Level 3 Est. Patient 09:08:44 CDT Giles Salcidol [facility] [place] CPT-38863 Level 4 Est. Patient 09:17:32 NEUROSURGEON Simon Castillo MD [facility] CPT-58766 Level 3 Est. Patient 11:22:22 NEUROSURGEON Simon Castillo MD [facility] CPT-36536 Level 3 Est. Patient 09:02:14 CDT Simon Castillo MD [facility] CPT-39817 Level 4 Est. Patient 08:47:25 CDT Simon Castillo MD [facility] CPT-83225 Level 4 Est. Patient 10:17:25 CDT Simon Castillo MD [facility] CPT-54615 Level 4 Est. Patient 10:10:09 NEUROSURGEON Simon Castillo MD [facility] CPT-48398 Level 4 Est. Patient 11:48:19 CDT Simon Castillo MD [facility] CPT-69704 Level 4 Est. Patient 08:59:29 CDT Simon Castillo MD [facility] CPT-84865 Level 4 Est. Patient 10:52:51 NEUROSURGEON Simon Castillo MD [facility] CPT-92699 Level 4 Est. Patient 11:50:30 CDT Simon Castillo MD [facility] CPT-46956 Level 4 Est. Patient 09:54:46 CDT Simon Castillo MD [facility] CPT-26327 Level 3 Est. Patient 11:10:14 CDT Simon Castillo MD [facility] CPT-05998 Level 4 Est. Patient 09:44:02 CDT Simon Castillo MD [facility] CPT-22586 Level 3 Est. Patient 09:27:48 CDT Simon Castillo MD [facility] CPT-49975 Level 3 Est. Patient 09:58:06 NEUROSURGEON Simon Castillo MD [facility] CPT-94271 Level 3 Est. Patient 09:51:35 CDT Simon Castillo MD [facility] Procedures Code Procedure Name Date Entry Date Standard Description CPT-G0439 Subsequent Annual Wellness Exam 09:41:17 CDT CPT-40230 Lipid - LAB USE ONLY 17:15:33 CDT CPT-52006 HGBA1C - LAB USE ONLY 17:15:33 CDT CPT-93733 CMP - LAB USE ONLY 17:15:33 CDT CPT-62449 Venipuncture Draw Fee 17:15:33 CDT CPT-[facility] Transitional Care Mgmt-High 11:01:28 NEUROSURGEON CPT-62957 First Vx - Ix admin for Medicare patients 17:33:39 CDT CPT-63583 Fluzone High-Dose Intramuscular Suspension 17:33:39 CDT CPT-G0438 Initial Annual Wellness Exam 08:57:30 CDT CPT-44930 Chest 2V Frontal and Lat - XRAY USE ONLY 09:00:14 CDT CPT-65073 Venipuncture Draw Fee 13:33:02 CDT CPT-02364 Bone Density 09:37:49 NEUROSURGEON CPT-88122 Fluzone High Dose 17:20:42 CDT CPT-39916 Prevnar 13 17:20:42 CDT CPT-97787 Administration 2+ single or combination vaccines inc oral 17:20:42 CDT CPT-23309 Administration single or combination vaccine inc oral 17 :20:42 CDT CPT-09072 Hand comp min 3V 09:24:38 CDT CPT-89768 Venipuncture Draw Fee 08:07:29 NEUROSURGEON CPT-26223 Venipuncture Draw Fee 09:02:51 NEUROSURGEON CPT-00010 Venipuncture Draw Fee 12:45:08 NEUROSURGEON CPT-98353 Venipuncture Draw Fee 09:25:31 CDT CPT-G0008 Administration of Influenza Virus Vaccine 14:41:29 CDT CPT-09914 Fluzone High-Dose Intramuscular Suspension 14:41:29 CDT CPT-Cryo Cryotherapy 11:48:20 CDT CPT-33096 EKG Trac and Interp 09:21:58 CDT CPT-00854 Chest 2V Frontal and Lat 09:21:58 CDT CPT-Cryo Cryotherapy 10:54:51 NEUROSURGEON CPT-76884 Administration 2+ single or combination vaccines inc oral 10:42:19 CDT CPT-92635 Administration single or combination vaccine inc oral 10 :42:19 CDT CPT-66535 Pneumovax 10:42:19 CDT CPT-94578 Influenza High Dose age 65+ 10:42:19 CDT CPT-86890 Administration single or combination vaccine inc oral 13 :18:54 CDT CPT-17696 Influenza High Dose age 65+ 13:18:54 CDT CPT-92041 Venipuncture Draw Fee 11:53:16 CDT CPT-07068 LS spine comp w obliq 11:03:13 CDT CPT-Cryo Cryotherapy 08:27:16 NEUROSURGEON CPT-42913 Administration single or combination vaccine inc oral 10 :56:34 CDT CPT-02101 Influenza High Dose age 65+ 10:56:34 CDT
--- OUTSIDE RECORDS SUMMARY | 2018-03-31 19:22 | XMS REPORT | Clinical Summary ---
Author Author Admin, E Organization [facility] Address Unknown Phone Unavailable Allergies, Adverse Reactions, Alerts Allergy Name Reaction Description Start Date Severity Status Provider No Known Allergies 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 Simon Castillo [...] for up to 2 weeks TRIAMCINOLONE ACETONIDE 02432896566 No Longer Active Simon Castillo MD Active LASIX 20 MG TAB 1 tablet by mouth daily x 2 days FUROSEMIDE 96211428098 No Longer Active Simon Castillo MD Active SULFASALAZINE 500 MG ORAL TBEC 2 tabs BID SULFASALAZINE 31200893959 No Longer Active Neto Oshea DO Active PREDNISONE 20 MG TAB 2 tabs daily for 3 days, 1 tab daily for 3 days, 1/2 tab daily for 2 days PREDNISONE 55923422504 No Longer Active Jillina Frazelalejandrina HEMPHILL Active PREDNISONE 20 MG TAB 1 tablet daily for airway inflammation 02/25 PREDNISONE 00765916055 No Longer Active Jillina Frazell [employer] Active CLARITIN 10 MG TAB 1 tablet by mouth daily as needed for allergies LORATADINE 56825654455 Active Jillina Lolyl [employer] Active AZITHROMYCIN 250 MG TABS 2 po qd x 1 day, then 1 po qd x 4 days AZITHROMYCIN 43730638323 No Longer Active Jillina Frazell [employer] Active GLIMEPIRIDE 2 MG ORAL TABS 1 po q a.m. GLIMEPIRIDE 20412298739 Active Simon Castillo MD Active HYDROCODONE-ACETAMINOPHEN 5-325 MG TABS 1 tab by mouth 8 hours as needed for pain HYDROCODONE-ACETAMINOPHEN 83078341177 Active Simon Castillo MD Active TRAMADOL HCL 50 MG TABS 1 po q6hr PRN Pain TRAMADOL HCL 24200279713 No Longer Active Simon Castillo MD Active PREDNISONE 5 MG TAB 1-2 tabs daily for rheumatoid arthritis PREDNISONE 04649115461 Active Simon Castillo MD Active PREDNISONE 5 MG TABS 1 po qod PREDNISONE 84548735288 No Longer Active Simon Castillo MD Active SYMBICORT 160-4.5 MCG/ACT AERO 2 puff BID BUDESONIDE- FORMOTEROL FUMARATE 85021409770 No Longer Active Simon Castillo MD Active FLONASE 50 MCG/ACT SUSP 2 puffs in each nostril daily FLUTICASONE PROPIONATE 46396566071 No Longer Active Simon Castillo MD Active PREDNISONE 20 MG TAB 2 tabs daily for 5 days, then 1 daily for 5 days PREDNISONE 08915725618 No Longer Active Simon Castillo MD Active PREDNISONE 20 MG TAB 2 tabs daily for 5 days, then 1 daily for 5 days, then 0.5 for 4 days PREDNISONE 79192116182 No Longer Active Simon Castillo MD Active CLOTRIMAZOLE 1 % EXT CREA Apply to affected area of feet twice daily PRN Rash CLOTRIMAZOLE 90026239455 Active Simon Castillo MD Active PREDNISONE 20 MG TAB 2 tabs daily for 3 days, 1 tab daily for 3 days, 1/2 tab daily for 2 days PREDNISONE 19271897913 No Longer Active Simon Castillo MD Active AZITHROMYCIN 250 MG TABS 2 po qd x 1 day, then 1 po qd x 4 days AZITHROMYCIN 51367083695 No Longer Active Simon Castillo MD Active LISINOPRIL 10 MG TABS 1 tablet by mouth daily LISINOPRIL 49601213237 Active Simon Castillo MD Active CARVEDILOL 6.25 MG TABS 1 po BID CARVEDILOL 64981862511 Active Simon Castillo MD Active LISINOPRIL-HYDROCHLOROTHIAZIDE 20-12.5 MG TABS 1/2 tab by mouth daily LISINOPRIL-HYDROCHLOROTHIAZIDE 07049628610 No Longer Active Simon Castillo MD Active TRAMADOL HCL 50 MG TABS 1-2 tablets every 6 hours as needed for pain TRAMADOL HCL 22639881624 Active Giles Tatum APRN Active PREDNISONE 5 MG TAB Take one po qod PREDNISONE 06675070447 No Longer Active Simon Castillo MD Active GLYBURIDE 5 MG TAB Take one by mouth daily GLYBURIDE 29098336307 No Longer Active Simon Castillo MD Active LEVAQUIN 750 MG TABS 1 po qod x 5 doses LEVOFLOXACIN 15584850423 No Longer Active Simon Castillo MD Active CETIRIZINE HCL 10 MG TABS 1 po qd as needed for allergies CETIRIZINE HCL 98108252006 No Longer Active Simon Castillo MD Active FISH OIL 1000 MG CPDR 1 pill by mouth twice daily for cholesterol OMEGA -3 FATTY ACIDS 58336924861 Active Simon Castillo MD Active BILBERRY CAPS 1 tab daily BILBERRY (VACCINIUM MYRTILLUS) CAPS 82714437050 Active Simon Castillo MD Active ATENOLOL 50 MG TABS Take one by mouth daily ATENOLOL 11275401395 No Longer Active Simon Castillo MD Active FLONASE 50 MCG/ACT SUSP 2 puffs in each nostril daily FLUTICASONE PROPIONATE 02692697958 No Longer Active Simon Castillo MD Active GLYBURIDE 5 MG TAB Take one by mouth daily GLYBURIDE 21511939632 No Longer Active Simon Castillo MD Active SYMBICORT 80-4.5 MCG/ACT AERO 2 puffs twice a day BUDESONIDE-FORMOTEROL FUMARATE 74368169233 No Longer Active Simon Castillo MD Active PREDNISONE 20 MG TAB 2 tabs daily for 4 days, 1 tab daily for 4 days, 1/2 tab daily for 4 days PREDNISONE 59941711894 No Longer Active Simon Castillo MD Active AMOXICILLIN 500 MG CAPS 2 po BID x 10 days AMOXICILLIN 34529034690 No Longer Active Simon Castillo MD Active METFORMIN HCL 1000 MG TABS 1 by mounth twice a day METFORMIN HCL 86356999477 No Longer Active Simon Castillo MD Active LUTEIN-ZEAXANTHIN 6-1 MG TABS Take 2 by mouth daily LUTEIN-ZEAXANTHIN 44343299343 Active Simon Castillo MD Active IBUPROFEN 800 MG TABS Take 1 tab every 6 hrs prn IBUPROFEN 38486499959 No Longer Active Simon Castillo MD Active GLYBURIDE 2.5 MG TABS Take one by mouth daily GLYBURIDE 25430708117 No Longer Active Simon Castillo MD Active LANCETS MISC 2 qd LANCETS 60410022525 Active Pamela Conde Active ACACIA CONTOUR TEST STRP Use with testing twice daily GLUCOSE BLOOD 98036824701 Active Simon Castillo MD Active ACACIA ASPIRIN 325 MG TABS Take one by mouth daily ASPIRIN 39329068440 Active Pamela Conde Active GLYBURIDE 2.5 MG TABS Take one by mouth daily GLYBURIDE 2.5 MG TABS 588209 GLYBURIDE Inactive PREDNISONE 20 MG TAB 2 tabs daily for 4 days, 1 tab daily for 4 days, 1/2 tab daily for 4 days PREDNISONE 20 MG TAB 907839 PREDNISONE Inactive SYMBICORT 80-4.5 MCG/ACT AERO 2 puffs twice a day SYMBICORT 80-4.5 MCG/ACT AERO BUDESONIDE-FORMOTEROL FUMARATE Inactive FLONASE 50 MCG/ACT SUSP 2 puffs in each nostril daily FLONASE 50 MCG/ACT SUSP FLUTICASONE PROPIONATE Inactive ATENOLOL 50 MG TABS Take one by mouth daily ATENOLOL 50 MG TABS 657322 ATENOLOL Inactive CETIRIZINE HCL 10 MG TABS 1 po qd as needed for allergies CETIRIZINE HCL 10 MG TABS 9251944 CETIRIZINE HCL Inactive LEVAQUIN 750 MG TABS 1 po qod x 5 doses LEVAQUIN 750 MG TABS 504342 LEVOFLOXACIN Inactive GLYBURIDE 5 MG TAB Take one by mouth daily GLYBURIDE 5 MG TAB 645426 GLYBURIDE Inactive PREDNISONE 5 MG TAB Take one po qod PREDNISONE 5 MG TAB 188710 PREDNISONE Inactive PREDNISONE 20 MG TAB 2 tabs daily for 5 days, then 1 daily for 5 days PREDNISONE 20 MG TAB 434684 PREDNISONE Inactive FLONASE 50 MCG/ACT SUSP 2 puffs in each nostril daily FLONASE 50 MCG/ACT SUSP FLUTICASONE PROPIONATE Inactive SYMBICORT 160-4.5 MCG/ACT AERO 2 puff BID SYMBICORT 160-4.5 MCG/ACT AERO BUDESONIDE-FORMOTEROL FUMARATE Inactive PREDNISONE 5 MG TABS 1 po qod PREDNISONE 5 MG TABS 283237 PREDNISONE Inactive PREDNISONE 20 MG TAB 1 tablet daily for airway inflammation 02/25 PREDNISONE 20 MG TAB 887611 PREDNISONE Inactive SULFASALAZINE 500 MG ORAL TBEC 2 tabs BID SULFASALAZINE 500 MG ORAL TBEC 530707 SULFASALAZINE Inactive LASIX 20 MG TAB 1 tablet by mouth daily x 2 days LASIX 20 MG TAB 699102 FUROSEMIDE Inactive AMOXICILLIN 500 MG CAPS 2 po BID x 10 days AMOXICILLIN 500 MG CAPS 475966 AMOXICILLIN Inactive GLYBURIDE 5 MG TAB Take one by mouth daily GLYBURIDE 5 MG TAB 085806 GLYBURIDE Inactive AZITHROMYCIN 250 MG TABS 2 po qd x 1 day, then 1 po qd x 4 days AZITHROMYCIN 250 MG TABS 8174645 AZITHROMYCIN Inactive PREDNISONE 20 MG TAB 2 tabs daily for 3 days, 1 tab daily for 3 days, 1/2 tab daily for 2 days PREDNISONE 20 MG TAB 283945 PREDNISONE Inactive PREDNISONE 20 MG TAB 2 tabs daily for 5 days, then 1 daily for 5 days, then 0.5 for 4 days PREDNISONE 20 MG TAB 860461 PREDNISONE Inactive AZITHROMYCIN 250 MG TABS 2 po qd x 1 day, then 1 po qd x 4 days AZITHROMYCIN 250 MG TABS 2860905 AZITHROMYCIN Inactive PREDNISONE 20 MG TAB 2 tabs daily for 3 days, 1 tab daily for 3 days, 1/2 tab daily for 2 days PREDNISONE 20 MG TAB 831754 PREDNISONE Inactive TRIAMCINOLONE ACETONIDE 0.1 % OINT Apply to affected areas TID for up to 2 weeks TRIAMCINOLONE ACETONIDE 0.1 % OINT 1772827 TRIAMCINOLONE ACETONIDE Inactive Immunizations Vaccine Administration Date [...] Panel - Chemistry sodium, serum 137 mmol/L 691-577 4183/06/06 carbon dioxide, venous blood 24.9 mmol/L 21.0-32.0 [...] Panel - Chemistry sodium, serum 139 mmol/L 094-047 3320/03/17 carbon dioxide, venous blood 29.0 mmol/L 21.0-32.0 [...] 8.5 % 4.3-6.0 sodium, serum 137 mmol/L 335-349 3279/02/12 potassium, serum 5.1 mmol/L 3.5-5.2 chloride, serum 103 mmol/L 98-107 carbon dioxide, venous blood 24.4 mmol/L 21.0-32.0 blood glucose 261 mg/dL 65-110 calcium, serum 9.0 mg/dL 8.5-10.1 urea nitrogen, blood 44 mg/dL 7-18 creatinine, serum 2.37 mg/dL 0.55-1.30 Lab Report: Uric Acid - Chemistry uric acid, serum 6.3 mg/dL 2.6-7.2 Encounters Code Encounter Date Provider Facility CPT-57340 Level 3 Est. Patient 09:18:25 CDT Simon Castillo MD [facility] CPT-17568 Level 4 Est. Patient 11:51:23 CDT Simon Castillo MD [facility] CPT-53804 Level 4 Est. Patient 14:32:04 CDT Neto Oshea DO [facility] CPT-54639 Level 3 Est. Patient 08:41:43 CDT Giles Tatum APRN [facility] CPT-56684 Level 3 Est. Patient 08:40:53 CDT Jillina Frazell [facility] CPT-92529 Level 3 Est. Patient 08:36:52 CDT Jonathanmeli Nashtico [facility] CPT-23780 Level 3 Est. Patient 09:08:44 CDT Giles Nashtico [facility] CPT-42365 Level 4 Est. Patient 09:17:32 [employer]ISH[employer] Simon Castillo MD [facility] CPT-63043 Level 3 Est. 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 Patient 09:02:14 CDT Simon Castillo MD [facility] CPT-00038 Level 4 Est. Patient 08:47:25 CDT Simon Castillo MD [facility] CPT-88565 Level 4 Est. Patient 10:17:25 CDT Simon Castillo MD [facility] CPT-20261 Level 4 Est. Patient 10:10:09 [employer] FINISHER Simon Castillo MD [facility] CPT-76290 Level 4 Est. Patient 11:48:19 CDT Simon Castillo MD [facility] CPT-79685 Level 4 Est. Patient 08:59:29 CDT Simon Castillo MD [facility] CPT-93747 Level 4 Est. Patient 10:52:51 [employer]ISHER Simon Castillo MD [facility] CPT-39063 Level 4 Est. Patient 11:50:30 CDT Simon Castillo MD [facility] CPT-11126 Level 4 Est. Patient 09:54:46 CDT Simon Castillo MD [facility] CPT-77852 Level 3 Est. Patient 11:10:14 CDT Simon Catsillo MD [facility] CPT-13202 Level 4 Est. Patient 09:44:02 CDT Simon Castillo MD [facility] CPT-64568 Level 3 Est. Patient 09:27:48 CDT Simon Castillo MD [facility] CPT-03404 Level 3 Est. Patient 09:58:06 [employer]ISHER Simon Castillo MD [facility] CPT-17358 Level 3 Est. Patient 09:51:35 CDT Simon Castillo MD [facility] Procedures Code Procedure Name Date Entry Date Standard Description CPT-39958 First Vx - Ix admin for Medicare patients 17:33:39 CDT CPT-19790 Fluzone High-Dose Intramuscular Suspension 17:33:39 CDT CPT-G0438 Initial Annual Wellness Exam 08:57:30 CDT CPT-95478 Chest 2V Frontal and Lat - XRAY USE ONLY 09:00:14 CDT CPT-52690 Venipuncture Draw Fee 13:33:02 CDT CPT-05192 Bone Density 09:37:49 [employer] FINISHER CPT-44032 Fluzone High Dose 17:20:42 CDT CPT-36904 Prevnar 13 17:20:42 CDT CPT-07941 Administration 2+ single or combination vaccines inc oral 17:20:42 CDT CPT-93598 Administration single or combination vaccine inc oral 17 :20:42 CDT CPT-14422 Hand comp min 3V 09:24:38 CDT CPT-33005 Venipuncture Draw Fee 08:07:29 [employer] FINISHER CPT-70670 Venipuncture Draw Fee 09:02:51 MET[employer] DIE FINISHER CPT-92623 Venipuncture Draw Fee 12:45:08 [employer] DIE FINISHER CPT-42494 Venipuncture Draw Fee 09:25:31 CDT CPT-G0008 Administration of Influenza Virus Vaccine 14:41:29 CDT CPT-44048 Fluzone High-Dose Intramuscular Suspension 14:41:29 CDT CPT-Cryo Cryotherapy 11:48:20 CDT CPT-38594 EKG Trac and Interp 09:21:58 CDT CPT-94721 Chest 2V Frontal and Lat 09:21:58 CDT CPT-Cryo Cryotherapy 10:54:51 [employer] FINISHER CPT-11923 Administration 2+ single or combination vaccines inc oral 10:42:19 CDT CPT-36919 Administration single or combination vaccine inc oral 10 :42:19 CDT CPT-11491 Pneumovax 10:42:19 CDT CPT-78443 Influenza High Dose age 65+ 10:42:19 CDT CPT-25370 Administration single or combination vaccine inc oral 13 :18:54 CDT CPT-74894 Influenza High Dose age 65+ 13:18:54 CDT CPT-77958 Venipuncture Draw Fee 11:53:16 CDT CPT-20998 LS spine comp w obliq 11:03:13 CDT CPT-Cryo Cryotherapy 08:27:16 [employer] FINISHER CPT-96942 Administration single or combination vaccine inc oral 10 :56:34 CDT CPT-44730 Influenza High Dose age 65+ 10:56:34 CDT
--- OUTSIDE RECORDS SUMMARY | 2018-03-31 19:24 | XMS REPORT | Clinical Summary ---
Author Author Admin, RAFFI Organization [employer] Address Unknown Phone Unavailable Allergies, Adverse [...] MD Acute bronchitis Health screening V70.0 Active Smion Castillo MD Routine general medical examination at [...] Rheumatoid arthritis Pharyngitis 462 Active Jillina Frazell SENIOR NUCLEAR MEDICINE TECHNOLOGIST Acute pharyngitis Dyspnea 786.09 Active Jillina Frazell SENIOR NUCLEAR MEDICINE TECHNOLOGIST Other dyspnea and respiratory abnormality Peripheral edema 782.3 Active Jillina Frazell SENIOR NUCLEAR MEDICINE TECHNOLOGIST Edema FH DIABETES ICD-V18.0 Inactive Simon Castillo [...] ICD-729.5 Inactive Simon Castillo MD Steroid use, snf ICD-V58.65 Inactive Simon Castillo MD Hand pain, bilateral ICD-729.5 Kerry Castillo MD Medication List Medication Instructions Start Date Stop Date Generic Name NDC Status Provider Patient Instruction PREDNISONE 20 MG TAB 2 tabs daily for 3 days, 1 tab daily for 3 days, 1/2 tab daily for 2 days PREDNISONE 72747245342 Active Jillina Fraamayal SENIOR NUCLEAR MEDICINE TECHNOLOGIST Active PREDNISONE 20 MG TAB 1 tablet daily for airway inflammation 02/25 PREDNISONE 30766307410 No Longer Active Jillina Fratico LOYAN Active SULFASALAZINE 500 MG ORAL TBEC 2 tabs BID SULFASALAZINE 81538473687 Active Jillina Fraamayal SENIOR NUCLEAR MEDICINE TECHNOLOGIST Active CLARITIN 10 MG TAB 1 tablet by mouth daily as needed for allergies LORATADINE 35084894077 Active Jillina Fraamayal SENIOR NUCLEAR MEDICINE TECHNOLOGIST Active AZITHROMYCIN 250 MG TABS 2 po qd x 1 day, then 1 po qd x 4 days AZITHROMYCIN 83624345656 No Longer Active Jillina Fratico LOYAN Active GLIMEPIRIDE 2 MG ORAL TABS 1 po q a.m. GLIMEPIRIDE 07040708063 Active Simon Castillo MD Active HYDROCODONE-ACETAMINOPHEN 5-325 MG TABS 1 tab by mouth 8 hours as needed for pain HYDROCODONE-ACETAMINOPHEN 97029049979 Active Simon Castillo MD Active TRAMADOL HCL 50 MG TABS 1 po q6hr PRN Pain TRAMADOL HCL 25185643178 No Longer Active Simon Castillo MD Active PREDNISONE 5 MG TAB 1-2 tabs daily for rheumatoid arthritis PREDNISONE 31705946793 Active Simon Castillo MD Active PREDNISONE 5 MG TABS 1 po qod PREDNISONE 81984468789 No Longer Active Simon Castillo MD Active SYMBICORT 160-4.5 MCG/ACT AERO 2 puff BID BUDESONIDE- FORMOTEROL FUMARATE 04360340480 No Longer Active Simon Castillo MD Active FLONASE 50 MCG/ACT SUSP 2 puffs in each nostril daily FLUTICASONE PROPIONATE 42781079175 No Longer Active Simon Castillo MD Active PREDNISONE 20 MG TAB 2 tabs daily for 5 days, then 1 daily for 5 days PREDNISONE 90288641342 No Longer Active Simon Castillo MD Active PREDNISONE 20 MG TAB 2 tabs daily for 5 days, then 1 daily for 5 days, then 0.5 for 4 days PREDNISONE 45477819260 No Longer Active Simon Castillo MD Active CLOTRIMAZOLE 1 % EXT CREA Apply to affected area of feet twice daily PRN Rash CLOTRIMAZOLE 70336442505 Active Simon Castillo MD Active PREDNISONE 20 MG TAB 2 tabs daily for 3 days, 1 tab daily for 3 days, 1/2 tab daily for 2 days PREDNISONE 21115467392 No Longer Active Simon Castillo MD Active AZITHROMYCIN 250 MG TABS 2 po qd x 1 day, then 1 po qd x 4 days AZITHROMYCIN 04870573579 No Longer Active Simon Castillo MD Active LISINOPRIL 10 MG TABS 1 tablet by mouth daily LISINOPRIL 50566728073 Active Simon Castillo MD Active CARVEDILOL 6.25 MG TABS 1 po BID CARVEDILOL 71015556835 Active Simon Castillo MD Active LISINOPRIL-HYDROCHLOROTHIAZIDE 20-12.5 MG TABS 1/2 tab by mouth daily LISINOPRIL-HYDROCHLOROTHIAZIDE 81869549658 No Longer Active Simon Castillo MD Active TRAMADOL HCL 50 MG TABS 1-2 tablets every 6 hours as needed for pain TRAMADOL HCL 86064407804 Active Giles Tatum APRN Active PREDNISONE 5 MG TAB Take one po qod PREDNISONE 88769513417 No Longer Active Simon Castillo MD Active GLYBURIDE 5 MG TAB Take one by mouth daily GLYBURIDE 07767591417 No Longer Active Simon Castillo MD Active LEVAQUIN 750 MG TABS 1 po qod x 5 doses LEVOFLOXACIN 60754317720 No Longer Active Simon Castillo MD Active CETIRIZINE HCL 10 MG TABS 1 po qd as needed for allergies CETIRIZINE HCL 85899909853 No Longer Active Simon Castillo MD Active FISH OIL 1000 MG CPDR 1 pill by mouth twice daily for cholesterol OMEGA -3 FATTY ACIDS 60572974747 Active Simon Castillo MD Active BILBERRY CAPS 1 tab daily BILBERRY (VACCINIUM MYRTILLUS) CAPS 57125359010 Active Simon Castillo MD Active ATENOLOL 50 MG TABS Take one by mouth daily ATENOLOL 70205814789 No Longer Active Simon Castillo MD Active FLONASE 50 MCG/ACT SUSP 2 puffs in each nostril daily FLUTICASONE PROPIONATE 64610646329 No Longer Active Simon Castillo MD Active GLYBURIDE 5 MG TAB Take one by mouth daily GLYBURIDE 55553363208 No Longer Active Simon Castillo MD Active SYMBICORT 80-4.5 MCG/ACT AERO 2 puffs twice a day BUDESONIDE-FORMOTEROL FUMARATE 40553800779 No Longer Active Simon Castillo MD Active PREDNISONE 20 MG TAB 2 tabs daily for 4 days, 1 tab daily for 4 days, 1/2 tab daily for 4 days PREDNISONE 34020787466 No Longer Active Simon Castillo MD Active AMOXICILLIN 500 MG CAPS 2 po BID x 10 days AMOXICILLIN 58039394966 No Longer Active Simon Castillo MD Active METFORMIN HCL 1000 MG TABS 1 by mounth twice a day METFORMIN HCL 17580220893 No Longer Active Simon Castillo MD Active LUTEIN-ZEAXANTHIN 6-1 MG TABS Take 2 by mouth daily LUTEIN-ZEAXANTHIN 01817059903 Active Simon Castillo MD Active IBUPROFEN 800 MG TABS Take 1 tab every 6 hrs prn IBUPROFEN 66325152479 No Longer Active Simon Castillo MD Active GLYBURIDE 2.5 MG TABS Take one by mouth daily GLYBURIDE 54527981701 No Longer Active Simon Castillo MD Active LANCETS MISC 2 qd LANCETS 53858564339 Active Pamela Conde Active ACACIA CONTOUR TEST STRP Use with testing twice daily GLUCOSE BLOOD 10592640967 Active Simon Castillo MD Active ACACIA ASPIRIN 325 MG TABS Take one by mouth daily ASPIRIN 16009213651 Active Pamela Conde Active GLYBURIDE 2.5 MG TABS Take one by mouth daily GLYBURIDE 2.5 MG TABS 154361 GLYBURIDE Inactive PREDNISONE 20 MG TAB 2 tabs daily for 4 days, 1 tab daily for 4 days, 1/2 tab daily for 4 days PREDNISONE 20 MG TAB 518924 PREDNISONE Inactive SYMBICORT 80-4.5 MCG/ACT AERO 2 puffs twice a day SYMBICORT 80-4.5 MCG/ACT AERO BUDESONIDE-FORMOTEROL FUMARATE Inactive FLONASE 50 MCG/ACT SUSP 2 puffs in each nostril daily FLONASE 50 MCG/ACT SUSP 982269 FLUTICASONE PROPIONATE Inactive ATENOLOL 50 MG TABS Take one by mouth daily ATENOLOL 50 MG TABS 736911 ATENOLOL Inactive CETIRIZINE HCL 10 MG TABS 1 po qd as needed for allergies CETIRIZINE HCL 10 MG TABS 2713296 CETIRIZINE HCL Inactive LEVAQUIN 750 MG TABS 1 po qod x 5 doses LEVAQUIN 750 MG TABS 269782 LEVOFLOXACIN Inactive GLYBURIDE 5 MG TAB Take one by mouth daily GLYBURIDE 5 MG TAB 948959 GLYBURIDE Inactive PREDNISONE 5 MG TAB Take one po qod PREDNISONE 5 MG TAB 963153 PREDNISONE Inactive PREDNISONE 20 MG TAB 2 tabs daily for 5 days, then 1 daily for 5 days PREDNISONE 20 MG TAB 608589 PREDNISONE Inactive FLONASE 50 MCG/ACT SUSP 2 puffs in each nostril daily FLONASE 50 MCG/ACT SUSP 214886 FLUTICASONE PROPIONATE Inactive SYMBICORT 160-4.5 MCG/ACT AERO 2 puff BID SYMBICORT 160-4.5 MCG/ACT AERO BUDESONIDE-FORMOTEROL FUMARATE Inactive PREDNISONE 5 MG TABS 1 po qod PREDNISONE 5 MG TABS 251005 PREDNISONE Inactive PREDNISONE 20 MG TAB 1 tablet daily for airway inflammation 02/25 PREDNISONE 20 MG TAB 352361 PREDNISONE Inactive AMOXICILLIN 500 MG CAPS 2 po BID x 10 days AMOXICILLIN 500 MG CAPS 146252 AMOXICILLIN Inactive GLYBURIDE 5 MG TAB Take one by mouth daily GLYBURIDE 5 MG TAB 970112 GLYBURIDE Inactive AZITHROMYCIN 250 MG TABS 2 po qd x 1 day, then 1 po qd x 4 days AZITHROMYCIN 250 MG TABS 1400123 AZITHROMYCIN Inactive PREDNISONE 20 MG TAB 2 tabs daily for 3 days, 1 tab daily for 3 days, 1/2 tab daily for 2 days PREDNISONE 20 MG TAB 968858 PREDNISONE Inactive PREDNISONE 20 MG TAB 2 tabs daily for 5 days, then 1 daily for 5 days, then 0.5 for 4 days PREDNISONE 20 MG TAB 975964 PREDNISONE Inactive AZITHROMYCIN 250 MG TABS 2 po qd x 1 day, then 1 po qd x 4 days AZITHROMYCIN 250 MG TABS 0024833 AZITHROMYCIN Inactive Immunizations Vaccine Administration Date Value [...] Panel - Chemistry sodium, serum 132 mmol/L 756-499 8108/10/26 carbon dioxide, venous blood 22.8 mmol/L 21.0-32.0 potassium, serum 5.4 mmol/L 3.5-5.2 chloride, serum 98 mmol/L 98-107 blood glucose 424 mg/dL 65-110 urea nitrogen, blood 40 mg/dL 7-18 creatinine, serum 2.26 mg/dL 0.55-1.30 alanine aminotransferase (SGPT), serum 29 U/L 12-78 aspartate aminotransferase (SGOT), serum 24 U/L 15-37 calcium, serum 8.6 mg/dL 8.5-10.1 bilirubin, serum, total 0.60 mg/dL 0.00-1.00 sodium, serum 137 mmol/L 655-955 4839/06/06 carbon dioxide, venous blood 24.9 mmol/L 21.0-32.0 [...] % 11.6-14.8 platelet count 210 10^3/MM^3 10*3/mm3 957-535 5845/10/26 leukocyte count, blood 10.3 10^3/MM^3 10*3/mm3 4.6-10.2 [...] Panel - Chemistry sodium, serum 139 mmol/L 492-245 8248/03/17 carbon dioxide, venous blood 29.0 mmol/L 21.0-32.0 [...] Rate - Chemistry sodium, serum 136 mmol/L 957-609 9464/09/18 carbon dioxide, venous blood 24.3 mmol/L 21.0-32.0 [...] HGBA1C - Chemistry sodium, serum 139 mmol/L 739-799 2618/07/09 potassium, serum 5.4 mmol/L 3.5-5.2 chloride, serum [...] 8.5 % 4.3-6.0 sodium, serum 137 mmol/L 790-489 7852/02/12 potassium, serum 5.1 mmol/L 3.5-5.2 chloride, serum 103 mmol/L 98-107 carbon dioxide, venous blood 24.4 mmol/L 21.0-32.0 blood glucose 261 mg/dL 65-110 calcium, serum 9.0 mg/dL 8.5-10.1 urea nitrogen, blood 44 mg/dL 7-18 creatinine, serum 2.37 mg/dL 0.55-1.30 Lab Report: Lipid Panel - Chemistry cholesterol, serum 139 mg/dL 325-854 1797/09/10 triglyceride, serum, fasting 176 mg/dL 30-200 HDL cholesterol, serum 45 mg/dL 32-96 LDL cholesterol, serum 59 mg/dL 0-130 Lab Report: MICROALBUMIN - Chemistry albumin/creatinine ratio, urine 30 - 300 mg/g mg/g{creat} 0-29 Lab Report: MICROALBUMIN - Lab microalbumin, urine 30 0-19 Lab Report: Uric Acid - Chemistry uric acid, serum 6.3 mg/dL 2.6-7.2 Encounters Code Encounter Date Provider Facility CPT-76481 Level 3 Est. Patient 08:41:43 CDT Giles Tatum [facility] CPT-30339 Level 3 Est. Patient 08:40:53 CDT Giles Tatum [facility] CPT-17437 Level 3 Est. Patient 08:36:52 CDT Giles Tatum [facility] CPT-20600 Level 3 Est. Patient 09:08:44 CDT Giles Tatum [facility] CPT-66171 Level 4 Est. Patient 09:17:32 PASSPORT SUPPORT ASSOCIATE Simon Castillo MD [facility] CPT-85893 Level 3 Est. Patient 11:22:22 PASSPORT SUPPORT ASSOCIATE Simon Castillo MD [facility] CPT-61629 Level 3 Est. Patient 09:02:14 CDT Simon Castillo MD [facility] CPT-51983 Level 4 Est. Patient 08:47:25 CDT Simon Castillo MD [facility] CPT-50864 Level 4 Est. Patient 10:17:25 CDT Simon Castillo MD [facility] CPT-30179 Level 4 Est. Patient 10:10:09 PASSPORT SUPPORT ASSOCIATE Simon Castillo MD [facility] CPT-57221 Level 4 Est. Patient 11:48:19 CDT Simon Castillo MD [facility] CPT-14672 Level 4 Est. Patient 08:59:29 CDT Simon Castillo MD [facility] CPT-91424 Level 4 Est. Patient 10:52:51 PASSPORT SUPPORT ASSOCIATE Simon Castillo MD [facility] CPT-61603 Level 4 Est. Patient 11:50:30 CDT Simon Castillo MD [facility] CPT-00126 Level 4 Est. Patient 09:54:46 CDT Simon Castillo MD [facility] CPT-82946 Level 3 Est. Patient 11:10:14 CDT Simon Castillo MD [facility] CPT-50649 Level 4 Est. Patient 09:44:02 CDT Simon Castillo MD [facility] CPT-46855 Level 3 Est. Patient 09:27:48 CDT Simon Castillo MD [facility] CPT-99473 Level 3 Est. Patient 09:58:06 PASSPORT SUPPORT ASSOCIATE Simon Castillo MD [facility] CPT-52234 Level 3 Est. Patient 09:51:35 CDT Simon Castillo MD [facility] Procedures Code Procedure Name Date Entry Date Standard Description CPT-14688 Chest 2V Frontal and Lat - XRAY USE ONLY 09:00:14 CDT CPT-37780 Venipuncture Draw Fee 13:33:02 CDT CPT-08487 Bone Density 09:37:49 PASSPORT SUPPORT ASSOCIATE CPT-97360 Fluzone High Dose 17:20:42 CDT CPT-14772 Prevnar 13 17:20:42 CDT CPT-06150 Administration 2+ single or combination vaccines inc oral 17:20:42 CDT CPT-84994 Administration single or combination vaccine inc oral 17 :20:42 CDT CPT-65877 Hand comp min 3V 09:24:38 CDT CPT-86361 Venipuncture Draw Fee 08:07:29 PASSPORT SUPPORT ASSOCIATE CPT-80171 Venipuncture Draw Fee 09:02:51 PASSPORT SUPPORT ASSOCIATE CPT-78137 Venipuncture Draw Fee 12:45:08 PASSPORT SUPPORT ASSOCIATE CPT-52202 Venipuncture Draw Fee 09:25:31 CDT CPT-G0008 Administration of Influenza Virus Vaccine 14:41:29 CDT CPT-06956 Fluzone High-Dose Intramuscular Suspension 14:41:29 CDT CPT-Cryo Cryotherapy 11:48:20 CDT CPT-68979 EKG Trac and Interp 09:21:58 CDT CPT-17225 Chest 2V Frontal and Lat 09:21:58 CDT CPT-Cryo Cryotherapy 10:54:51 PASSPORT SUPPORT ASSOCIATE CPT-66037 Administration 2+ single or combination vaccines inc oral 10:42:19 CDT CPT-44975 Administration single or combination vaccine inc oral 10 :42:19 CDT CPT-30295 Pneumovax 10:42:19 CDT CPT-95657 Influenza High Dose age 65+ 10:42:19 CDT CPT-97166 Administration single or combination vaccine inc oral 13 :18:54 CDT CPT-47188 Influenza High Dose age 65+ 13:18:54 CDT CPT-44427 Venipuncture Draw Fee 11:53:16 CDT CPT-76487 LS spine comp w obliq 11:03:13 CDT CPT-Cryo Cryotherapy 08:27:16 PASSPORT SUPPORT ASSOCIATE CPT-76973 Administration single or combination vaccine inc oral 10 :56:34 CDT CPT-84458 Influenza High Dose age 65+ 10:56:34 CDT
--- OUTSIDE RECORDS SUMMARY | 2018-03-31 19:25 | XMS REPORT | Clinical Summary ---
Author Author Admin, RAFFI Organization [facility] Address Unknown Phone Unavailable Allergies, [...] hazards to health SEBORRHEIC KERATOSIS 702.19 Resolved iSmon Castillo MD Other seborrheic keratosis BRONCHITIS, ACUTE [...] TABS 1 tablet by mouth daily LISINOPRIL 04057992478 Active Simon Castillo MD Active GLIMEPIRIDE 1 MG TABS 1 po q a.m. GLIMEPIRIDE 60090593948 Active Simon Castillo MD Active CARVEDILOL 6.25 MG TABS 1 po BID CARVEDILOL 36296618366 Active Simon Castillo MD Active LISINOPRIL-HYDROCHLOROTHIAZIDE 20-12.5 MG TABS 1/2 tab by mouth daily LISINOPRIL-HYDROCHLOROTHIAZIDE 11884106740 No Longer Active Simon Castillo MD Active PREDNISONE 5 MG TABS 1 po qod PREDNISONE 23645080563 Active Simon Castillo MD Active TRAMADOL HCL 50 MG TABS 1-2 tablets every 6 hours as needed for pain TRAMADOL HCL 86059615176 Active Simon Castillo MD Active PREDNISONE 5 MG TAB Take one po qod PREDNISONE 46307112255 No Longer Active Simon Castillo MD Active GLYBURIDE 5 MG TAB Take one by mouth daily GLYBURIDE 28369275552 No Longer Active Simon Castillo MD Active LEVAQUIN 750 MG TABS 1 po qod x 5 doses LEVOFLOXACIN 57419013031 No Longer Active Simon Castillo MD Active CETIRIZINE HCL 10 MG TABS 1 po qd as needed for allergies CETIRIZINE HCL 41191653652 No Longer Active Simon Castillo MD Active FISH OIL 1000 MG CPDR 1 pill by mouth twice daily for cholesterol OMEGA -3 FATTY ACIDS 88602088672 Active Simon Castillo MD Active BILBERRY CAPS 1 tab daily BILBERRY (VACCINIUM MYRTILLUS) CAPS 87071644400 Active Simon Castillo MD Active ATENOLOL 50 MG TABS Take one by mouth daily ATENOLOL 41743006970 No Longer Active Simon Castillo MD Active FLONASE 50 MCG/ACT SUSP 2 puffs in each nostril daily FLUTICASONE PROPIONATE 14794115645 No Longer Active Simon Castillo MD Active GLYBURIDE 5 MG TAB Take one by mouth daily GLYBURIDE 88176471525 No Longer Active Simon Castillo MD Active SYMBICORT 80-4.5 MCG/ACT AERO 2 puffs twice a day BUDESONIDE-FORMOTEROL FUMARATE 79246955126 No Longer Active Simon Castillo MD Active PREDNISONE 20 MG TAB 2 tabs daily for 4 days, 1 tab daily for 4 days, 1/2 tab daily for 4 days PREDNISONE 06636055718 No Longer Active Simon Castillo MD Active AMOXICILLIN 500 MG CAPS 2 po BID x 10 days AMOXICILLIN 16384986476 No Longer Active Simon Castillo MD Active METFORMIN HCL 1000 MG TABS 1 by [place] twice a day METFORMIN HCL 18502328410 No Longer Active Simon Castillo MD Active LUTEIN-ZEAXANTHIN 6-1 MG TABS Take 2 by mouth daily LUTEIN-ZEAXANTHIN 24051641533 Active Simon Castillo MD Active IBUPROFEN 800 MG TABS Take 1 tab every 6 hrs prn IBUPROFEN 39528357704 No Longer Active Simon Castillo MD Active GLYBURIDE 2.5 MG TABS Take one by mouth daily GLYBURIDE 11389570722 No Longer Active Simon Castillo MD Active LANCETS MISC 2 qd [facility] 776580207[facility] Active Pamela Conde Active ACACIA CONTOUR TEST STRP Use with testing twice daily GLUCOSE BLOOD 16815571992 Active Pamela Conde Active ACACIA ASPIRIN 325 MG TABS Take one by mouth daily ASPIRIN 62068749009 Active Pamela Conde Active GLYBURIDE 2.5 MG TABS Take one by mouth daily GLYBURIDE 2.5 MG TABS 270291 GLYBURIDE Inactive PREDNISONE 20 MG TAB 2 tabs daily for 4 days, 1 tab daily for 4 days, 1/2 tab daily for 4 days PREDNISONE 20 MG TAB 529953 PREDNISONE Inactive SYMBICORT 80-4.5 MCG/ACT AERO 2 puffs twice a day SYMBICORT 80-4.5 MCG/ACT AERO BUDESONIDE-FORMOTEROL FUMARATE Inactive FLONASE 50 MCG/ACT SUSP 2 puffs in each nostril daily FLONASE 50 MCG/ACT SUSP 804625 FLUTICASONE PROPIONATE Inactive ATENOLOL 50 MG TABS Take one by mouth daily ATENOLOL 50 MG TABS 068804 ATENOLOL Inactive CETIRIZINE HCL 10 MG TABS 1 po qd as needed for allergies CETIRIZINE HCL 10 MG TABS 2012207 CETIRIZINE HCL Inactive LEVAQUIN 750 MG TABS 1 po qod x 5 doses LEVAQUIN 750 MG TABS 359126 LEVOFLOXACIN Inactive GLYBURIDE 5 MG TAB Take one by mouth daily GLYBURIDE 5 MG TAB 269337 GLYBURIDE Inactive PREDNISONE 5 MG TAB Take one po qod PREDNISONE 5 MG TAB 631388 PREDNISONE Inactive AMOXICILLIN 500 MG CAPS 2 po BID x 10 days AMOXICILLIN 500 MG CAPS 700659 AMOXICILLIN Inactive GLYBURIDE 5 MG TAB Take one by mouth daily GLYBURIDE 5 MG TAB 179215 GLYBURIDE Inactive Immunizations Vaccine Administration Date Value [...] Panel - Chemistry sodium, serum 137 mmol/L 889-693 7067/06/26 potassium, serum 5.7 mmol/L 3.5-5.2 chloride, serum 104 mmol/L 98-107 carbon dioxide, venous blood 21.2 mmol/L 21.0-32.0 blood glucose 129 mg/dL 65-110 calcium, serum 9.0 mg/dL 8.5-10.1 urea nitrogen, blood 67 mg/dL 7-18 creatinine, serum 3.30 mg/dL 0.60-1.30 sodium, serum 140 mmol/L 026-994 3999/07/10 potassium, serum 5.3 mmol/L 3.5-5.2 chloride, serum 105 mmol/L 98-107 carbon dioxide, venous blood 25.5 mmol/L 21.0-32.0 blood glucose 119 mg/dL 65-110 calcium, serum 8.9 mg/dL 8.5-10.1 urea nitrogen, blood 44 mg/dL 7-18 creatinine, serum 2.50 mg/dL 0.60-1.30 Lab Report: CBC W/DIFF, Comp. Metabolic Panel - Chemistry sodium, serum 137 mmol/L 003-165 4038/06/18 potassium, serum 5.3 mmol/L 3.5-5.2 chloride, serum [...] Panel - Chemistry sodium, serum 137 mmol/L 205-152 2996/10/14 potassium, serum 5.6 mmol/L 3.5-5.2 chloride, serum 103 mmol/L 98-107 carbon dioxide, venous blood 24.9 mmol/L 21.0-32.0 blood glucose 200 mg/dL 65-110 urea nitrogen, blood 43 mg/dL 7-18 creatinine, serum 2.60 mg/dL 0.60-1.30 calcium, serum 9.1 mg/dL 8.5-10.1 sodium, serum 139 mmol/L 299-500 7083/11/13 potassium, serum 5.8 mmol/L 3.5-5.2 chloride, serum 105 mmol/L 98-107 carbon dioxide, venous blood 22.2 mmol/L 21.0-32.0 blood glucose 156 mg/dL 65-110 urea nitrogen, blood 49 mg/dL 7-18 creatinine, serum 2.30 mg/dL 0.60-1.30 calcium, serum 9.2 mg/dL 8.5-10.1 sodium, serum 140 mmol/L 109-775 0034/12/12 potassium, serum 5.5 mmol/L 3.5-5.2 chloride, serum [...] % 11.6-14.8 platelet count 217 10^3/MM^3 10*3/mm3 311-026 2488/10/14 leukocyte count, blood 9.2 10^3/MM^3 10*3/mm3 4.6-10.2 erythrocyte (RBC) count 4.67 10^6/MM^3 10*6/mm3 4.69-6.13 hemoglobin, blood 13.9 g/dL 13.5-17.5 hematocrit, blood 42.4 % 41.0-53.0 mean corpuscular volume, RBC 91 fL 80-97 mean corpuscular hemoglobin, RBC 29.7 pg 27.0-31.2 mean corpuscular hemoglobin concentration, RBC 32.8 G/DL % 31.8- 35.4 red blood cell distribution width 14.7 % 11.6-14.8 platelet count 214 10^3/MM^3 10*3/mm3 140-836 7246/11/13 leukocyte count, blood 9.7 10^3/MM^3 10*3/mm3 4.6-10.2 [...] 6.9 % 4.3-6.0 sodium, serum 137 mmol/L 018-297 0584/08/21 potassium, serum 5.3 mmol/L 3.5-5.2 chloride, serum 104 mmol/L 98-107 carbon dioxide, venous blood 20.4 mmol/L 21.0-32.0 blood glucose 173 mg/dL 65-110 calcium, serum 8.7 mg/dL 8.5-10.1 urea nitrogen, blood 46 mg/dL 7-18 creatinine, serum 2.60 mg/dL 0.60-1.30 Lab Report: Prostatic Specific Ag - Chemistry prostate specific antigen 1.52 ng/mL 0.00-4.00 Lab Report: Renal Panel - Chemistry sodium, serum 140 mmol/L 774-846 7404/11/17 potassium, serum 5.0 mmol/L 3.5-5.2 chloride, serum 104 mmol/L 98-107 carbon dioxide, venous blood 24.8 mmol/L 21.0-32.0 blood glucose 146 mg/dL 65-110 urea nitrogen, blood 46 mg/dL 7-18 creatinine, serum 2.60 mg/dL 0.60-1.30 calcium, serum 9.2 mg/dL 8.5-10.1 sodium, serum 139 mmol/L 189-321 5714/10/21 potassium, serum 4.7 mmol/L 3.5-5.2 chloride, serum [...] mg/dL Encounters Code Encounter Date Provider Facility CPT-30427 Level 4 Est. Patient 10:17:25 CDT Simon Castillo MD [facility] CPT-71017 Level 4 Est. Patient 10:10:09 MOSAICIST Simon Castillo MD [facility] CPT-81359 Level 4 Est. Patient 11:48:19 CDT Simon Castillo MD [facility] CPT-71613 Level 4 Est. Patient 08:59:29 CDT Simon Castillo MD [facility] CPT-13762 Level 4 Est. Patient 10:52:51 MOSAICIST Simon Castillo MD [facility] CPT-64143 Level 4 Est. Patient 11:50:30 CDT Simon Castillo MD [facility] CPT-40233 Level 4 Est. Patient 09:54:46 CDT Simon Castillo MD [facility] CPT-89141 Level 3 Est. Patient 11:10:14 CDT Simon Castillo MD [facility] CPT-92887 Level 4 Est. Patient 09:44:02 CDT Simon Castillo MD [facility] CPT-56639 Level 3 Est. Patient 09:27:48 CDT Simon Castillo MD [facility] CPT-37971 Level 3 Est. Patient 09:58:06 MOSAICIST Simon Castillo MD [facility] CPT-97824 Level 3 Est. Patient 09:51:35 CDT Simon Castillo MD [facility] Procedures Code Procedure Name Date Entry Date Standard Description CPT-37822 Venipuncture Draw Fee 08:07:29 MOSAICIST CPT-91351 Venipuncture Draw Fee 09:02:51 MOSAICIST CPT-17647 Venipuncture Draw Fee 12:45:08 MOSAICIST CPT-58676 Venipuncture Draw Fee 09:25:31 CDT CPT-G0008 Administration of Influenza Virus Vaccine 14:41:29 CDT CPT-79382 Fluzone High-Dose Intramuscular Suspension 14:41:29 CDT CPT-Cryo Cryotherapy 11:48:20 CDT CPT-67383 EKG Trac and Interp 09:21:58 CDT CPT-75954 Chest 2V Frontal and Lat 09:21:58 CDT CPT-Cryo Cryotherapy 10:54:51 MOSAICIST CPT-14841 Administration 2+ single or combination vaccines inc oral 10:42:19 CDT CPT-82638 Administration single or combination vaccine inc oral 10 :42:19 CDT CPT-38544 Pneumovax 10:42:19 CDT CPT-70247 Influenza High Dose age 65+ 10:42:19 CDT CPT-21394 Administration single or combination vaccine inc oral 13 :18:54 CDT CPT-85114 Influenza High Dose age 65+ 13:18:54 CDT CPT-80369 Venipuncture Draw Fee 11:53:16 CDT CPT-76606 LS spine comp w obliq 11:03:13 CDT CPT-Cryo Cryotherapy 08:27:16 MOSAICIST CPT-90136 Administration single or combination vaccine inc oral 10 :56:34 CDT CPT-09994 Influenza High Dose age 65+ 10:56:34 CDT
--- OUTSIDE RECORDS SUMMARY | 2018-03-31 19:26 | XMS REPORT | Clinical Summary ---
Author Author Admin, RAFFI Organization [facility] Address Unknown Phone Unavailable Allergies, Adverse Reactions, [...] TABS 1 tablet by mouth daily LISINOPRIL 76890972124 Active Simon Castillo MD Active GLIMEPIRIDE 1 MG TABS 1 po q a.m. GLIMEPIRIDE 62697660637 Active Simon Castillo MD Active CARVEDILOL 6.25 MG TABS 1 po BID CARVEDILOL 01918608044 Active Simon Castillo MD Active LISINOPRIL-HYDROCHLOROTHIAZIDE 20-12.5 MG TABS 1/2 tab by mouth daily LISINOPRIL-HYDROCHLOROTHIAZIDE 12947642846 No Longer Active Simon Castillo MD Active PREDNISONE 5 MG TABS 1 po qod PREDNISONE 98111346168 Active Simon Castillo MD Active TRAMADOL HCL 50 MG TABS 1-2 tablets every 6 hours as needed for pain TRAMADOL HCL 03270203956 Active Simon Castillo MD Active PREDNISONE 5 MG TAB Take one po qod PREDNISONE 94991690157 No Longer Active Simon Castillo MD Active GLYBURIDE 5 MG TAB Take one by mouth daily GLYBURIDE 44989361835 No Longer Active Simon Castillo MD Active LEVAQUIN 750 MG TABS 1 po qod x 5 doses LEVOFLOXACIN 51544565768 No Longer Active Simon Castillo MD Active CETIRIZINE HCL 10 MG TABS 1 po qd as needed for allergies CETIRIZINE HCL 67014318575 No Longer Active Simon Castillo MD Active FISH OIL 1000 MG CPDR 1 pill by mouth twice daily for cholesterol OMEGA -3 FATTY ACIDS 67650590119 Active Simon Castillo MD Active BILBERRY CAPS 1 tab daily BILBERRY (VACCINIUM MYRTILLUS) CAPS 92324673413 Active Simon Castillo MD Active ATENOLOL 50 MG TABS Take one by mouth daily ATENOLOL 00089185090 No Longer Active Simon Castillo MD Active FLONASE 50 MCG/ACT SUSP 2 puffs in each nostril daily FLUTICASONE PROPIONATE 40188426397 No Longer Active Simon Castillo MD Active GLYBURIDE 5 MG TAB Take one by mouth daily GLYBURIDE 82479138524 No Longer Active Simon Castillo MD Active SYMBICORT 80-4.5 MCG/ACT AERO 2 puffs twice a day BUDESONIDE-FORMOTEROL FUMARATE 69622748319 No Longer Active Simon Castillo MD Active PREDNISONE 20 MG TAB 2 tabs daily for 4 days, 1 tab daily for 4 days, 1/2 tab daily for 4 days PREDNISONE 70652874402 No Longer Active Simon Castillo MD Active AMOXICILLIN 500 MG CAPS 2 po BID x 10 days AMOXICILLIN 29932192066 No Longer Active Simon Castillo MD Active METFORMIN HCL 1000 MG TABS 1 by [facility] twice a day METFORMIN HCL 68817346436 No Longer Active Simon Castillo MD Active LUTEIN-ZEAXANTHIN 6-1 MG TABS Take 2 by mouth daily LUTEIN-ZEAXANTHIN 73307125847 Active Simon Castillo MD Active IBUPROFEN 800 MG TABS Take 1 tab every 6 hrs prn IBUPROFEN 95033480474 No Longer Active Simon Castillo MD Active GLYBURIDE 2.5 MG TABS Take one by mouth daily GLYBURIDE 17454495202 No Longer Active Simon Castillo MD [facility] Active Pamela Conde Active ACACIA CONTOUR TEST STRP Use with testing twice daily GLUCOSE BLOOD 29805529687 Active Pamela Conde Active ACACIA ASPIRIN 325 MG TABS Take one by mouth daily ASPIRIN 92235400160 Active Pamela Conde Active GLYBURIDE 2.5 MG TABS Take one by mouth daily GLYBURIDE 2.5 MG TABS 806420 GLYBURIDE Inactive PREDNISONE 20 MG TAB 2 tabs daily for 4 days, 1 tab daily for 4 days, 1/2 tab daily for 4 days PREDNISONE 20 MG TAB 580233 PREDNISONE Inactive SYMBICORT 80-4.5 MCG/ACT AERO 2 puffs twice a day SYMBICORT 80-4.5 MCG/ACT AERO BUDESONIDE-FORMOTEROL FUMARATE Inactive FLONASE 50 MCG/ACT SUSP 2 puffs in each nostril daily FLONASE 50 MCG/ACT SUSP 706199 FLUTICASONE PROPIONATE Inactive ATENOLOL 50 MG TABS Take one by mouth daily ATENOLOL 50 MG TABS 163246 ATENOLOL Inactive CETIRIZINE HCL 10 MG TABS 1 po qd as needed for allergies CETIRIZINE HCL 10 MG TABS 2251643 CETIRIZINE HCL Inactive LEVAQUIN 750 MG TABS 1 po qod x 5 doses LEVAQUIN 750 MG TABS 392603 LEVOFLOXACIN Inactive GLYBURIDE 5 MG TAB Take one by mouth daily GLYBURIDE 5 MG TAB 870366 GLYBURIDE Inactive PREDNISONE 5 MG TAB Take one po qod PREDNISONE 5 MG TAB 838141 PREDNISONE Inactive AMOXICILLIN 500 MG CAPS 2 po BID x 10 days AMOXICILLIN 500 MG CAPS 833831 AMOXICILLIN Inactive GLYBURIDE 5 MG TAB Take one by mouth daily GLYBURIDE 5 MG TAB 077048 GLYBURIDE Inactive Immunizations Vaccine Administration Date Value [...] Panel - Chemistry sodium, serum 137 mmol/L 762-442 2558/06/26 potassium, serum 5.7 mmol/L 3.5-5.2 chloride, serum 104 mmol/L 98-107 carbon dioxide, venous blood 21.2 mmol/L 21.0-32.0 blood glucose 129 mg/dL 65-110 calcium, serum 9.0 mg/dL 8.5-10.1 urea nitrogen, blood 67 mg/dL 7-18 creatinine, serum 3.30 mg/dL 0.60-1.30 sodium, serum 140 mmol/L 413-371 0996/07/10 potassium, serum 5.3 mmol/L 3.5-5.2 chloride, serum 105 mmol/L 98-107 carbon dioxide, venous blood 25.5 mmol/L 21.0-32.0 blood glucose 119 mg/dL 65-110 calcium, serum 8.9 mg/dL 8.5-10.1 urea nitrogen, blood 44 mg/dL 7-18 creatinine, serum 2.50 mg/dL 0.60-1.30 Lab Report: CBC W/DIFF, Comp. Metabolic Panel - Chemistry sodium, serum 137 mmol/L 402-757 0683/06/18 potassium, serum 5.3 mmol/L 3.5-5.2 chloride, serum [...] Panel - Chemistry sodium, serum 137 mmol/L 784-136 5133/10/14 potassium, serum 5.6 mmol/L 3.5-5.2 chloride, serum 103 mmol/L 98-107 carbon dioxide, venous blood 24.9 mmol/L 21.0-32.0 blood glucose 200 mg/dL 65-110 urea nitrogen, blood 43 mg/dL 7-18 creatinine, serum 2.60 mg/dL 0.60-1.30 calcium, serum 9.1 mg/dL 8.5-10.1 sodium, serum 139 mmol/L 848-111 5807/11/13 potassium, serum 5.8 mmol/L 3.5-5.2 chloride, serum 105 mmol/L 98-107 carbon dioxide, venous blood 22.2 mmol/L 21.0-32.0 blood glucose 156 mg/dL 65-110 urea nitrogen, blood 49 mg/dL 7-18 creatinine, serum 2.30 mg/dL 0.60-1.30 calcium, serum 9.2 mg/dL 8.5-10.1 sodium, serum 140 mmol/L 838-436 5730/12/12 potassium, serum 5.5 mmol/L 3.5-5.2 chloride, serum [...] % 11.6-14.8 platelet count 217 10^3/MM^3 10*3/mm3 066-406 4792/10/14 leukocyte count, blood 9.2 10^3/MM^3 10*3/mm3 4.6-10.2 erythrocyte (RBC) count 4.67 10^6/MM^3 10*6/mm3 4.69-6.13 hemoglobin, blood 13.9 g/dL 13.5-17.5 hematocrit, blood 42.4 % 41.0-53.0 mean corpuscular volume, RBC 91 fL 80-97 mean corpuscular hemoglobin, RBC 29.7 pg 27.0-31.2 mean corpuscular hemoglobin concentration, RBC 32.8 G/DL % 31.8- 35.4 red blood cell distribution width 14.7 % 11.6-14.8 platelet count 214 10^3/MM^3 10*3/mm3 450-975 6576/11/13 leukocyte count, blood 9.7 10^3/MM^3 10*3/mm3 4.6-10.2 [...] 6.9 % 4.3-6.0 sodium, serum 137 mmol/L 767-952 9555/08/21 potassium, serum 5.3 mmol/L 3.5-5.2 chloride, serum 104 mmol/L 98-107 carbon dioxide, venous blood 20.4 mmol/L 21.0-32.0 blood glucose 173 mg/dL 65-110 calcium, serum 8.7 mg/dL 8.5-10.1 urea nitrogen, blood 46 mg/dL 7-18 creatinine, serum 2.60 mg/dL 0.60-1.30 Lab Report: Prostatic Specific Ag - Chemistry prostate specific antigen 1.52 ng/mL 0.00-4.00 Lab Report: Renal Panel - Chemistry sodium, serum 140 mmol/L 337-126 3140/11/17 potassium, serum 5.0 mmol/L 3.5-5.2 chloride, serum 104 mmol/L 98-107 carbon dioxide, venous blood 24.8 mmol/L 21.0-32.0 blood glucose 146 mg/dL 65-110 urea nitrogen, blood 46 mg/dL 7-18 creatinine, serum 2.60 mg/dL 0.60-1.30 calcium, serum 9.2 mg/dL 8.5-10.1 sodium, serum 139 mmol/L 695-498 7111/10/21 potassium, serum 4.7 mmol/L 3.5-5.2 chloride, serum [...] mg/dL Encounters Code Encounter Date Provider Facility CPT-17402 Level 4 Est. Patient 10:17:25 CDT Simon Castillo MD [facility] CPT-21361 Level 4 Est. 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 Patient 11:48:19 CDT Simon Castillo MD [facility] CPT-21314 Level 4 Est. Patient 08:59:29 CDT Simon Castillo MD [facility] CPT-42628 Level 4 Est. Patient 10:52:51 VENDING MACHINE ATTENDANT Simon Castillo MD [facility] CPT-70929 Level 4 Est. Patient 11:50:30 CDT Simon Castillo MD [facility] CPT-42879 Level 4 Est. Patient 09:54:46 CDT Simon Castillo MD [facility] CPT-20657 Level 3 Est. Patient 11:10:14 CDT Simon Castillo MD [facility] CPT-38159 Level 4 Est. Patient 09:44:02 CDT Simon Castillo MD [facility] CPT-32740 Level 3 Est. Patient 09:27:48 CDT Simon Castillo MD [facility] CPT-16673 Level 3 Est. Patient 09:58:06 VENDING MACHINE ATTENDANT Simon Castillo MD [facility] CPT-15474 Level 3 Est. Patient 09:51:35 CDT Simon Castillo MD [facility] Procedures Code Procedure Name Date Entry Date Standard Description CPT-54940 Venipuncture Draw Fee 08:07:29 VENDING MACHINE ATTENDANT CPT-13029 Venipuncture Draw Fee 09:02:51 VENDING MACHINE ATTENDANT CPT-47921 Venipuncture Draw Fee 12:45:08 VENDING MACHINE ATTENDANT CPT-66919 Venipuncture Draw Fee 09:25:31 CDT CPT-G0008 Administration of Influenza Virus Vaccine 14:41:29 CDT CPT-55557 Fluzone High-Dose Intramuscular Suspension 14:41:29 CDT CPT-Cryo Cryotherapy 11:48:20 CDT CPT-39618 EKG Trac and Interp 09:21:58 CDT CPT-25534 Chest 2V Frontal and Lat 09:21:58 CDT CPT-Cryo Cryotherapy 10:54:51 VENDING MACHINE ATTENDANT CPT-65613 Administration 2+ single or combination vaccines inc oral 10:42:19 CDT CPT-07926 Administration single or combination vaccine inc oral 10 :42:19 CDT CPT-87467 Pneumovax 10:42:19 CDT CPT-66463 Influenza High Dose age 65+ 10:42:19 CDT CPT-77722 Administration single or combination vaccine inc oral 13 :18:54 CDT CPT-77493 Influenza High Dose age 65+ 13:18:54 CDT CPT-89357 Venipuncture Draw Fee 11:53:16 CDT CPT-90108 LS spine comp w obliq 11:03:13 CDT CPT-Cryo Cryotherapy 08:27:16 VENDING MACHINE ATTENDANT CPT-46746 Administration single or combination vaccine inc oral 10 :56:34 CDT CPT-75351 Influenza High Dose age 65+ 10:56:34 CDT
--- OUTSIDE RECORDS SUMMARY | 2018-03-31 19:27 | XMS REPORT | Clinical Summary ---
Author Author Admin, RAFFI Organization [facility] Address Unknown Phone Unavailable Allergies, Adverse Reactions, Alerts Allergy Name Reaction Description Start Date Severity Status Provider No Known Allergies Farhana Alcantar LPN Conditions or Problems Problem Name Problem [...] Contact dermatitis and other eczema, unspecified cause FH DIABETES ICD-V18.0 Inactive Simon Castillo MD [...] Name NDC Status Provider Patient Instruction GLIMEPIRIDE 1 MG TABS 1 po q a.m. GLIMEPIRIDE 34584324248 Active Simon Castillo MD Active CARVEDILOL 6.25 MG TABS 1 po BID CARVEDILOL 39091644961 Active Simon Castillo MD Active LISINOPRIL-HYDROCHLOROTHIAZIDE 20-12.5 MG TABS 1/2 tab by mouth daily LISINOPRIL-HYDROCHLOROTHIAZIDE 97454921821 Active Simon Castillo MD Active PREDNISONE 5 MG TABS 1 po qod PREDNISONE 64734726145 Active Giles Tatum APRN Active TRAMADOL HCL 50 MG TABS 1-2 tablets every 6 hours as needed for pain TRAMADOL HCL 94759824754 Active Simon Castillo MD Active PREDNISONE 5 MG TAB Take one po qod PREDNISONE 08474821883 No Longer Active Simon Castillo MD Active GLYBURIDE 5 MG TAB Take one by mouth daily GLYBURIDE 71832508641 No Longer Active Simon Castillo MD Active LEVAQUIN 750 MG TABS 1 po qod x 5 doses LEVOFLOXACIN 02786585178 No Longer Active Simon Castillo MD Active CETIRIZINE HCL 10 MG TABS 1 po qd as needed for allergies CETIRIZINE HCL 35519863695 No Longer Active Simon Castillo MD Active FISH OIL 1000 MG CPDR 1 pill by mouth twice daily for cholesterol OMEGA -3 FATTY ACIDS 61574232142 Active Simon Castillo MD Active BILBERRY CAPS 1 tab daily BILBERRY (VACCINIUM MYRTILLUS) CAPS 21496284784 Active Simon Castillo MD Active ATENOLOL 50 MG TABS Take one by mouth daily ATENOLOL 68569731843 No Longer Active Simon Castillo MD Active FLONASE 50 MCG/ACT SUSP 2 puffs in each nostril daily FLUTICASONE PROPIONATE 72407926194 No Longer Active Simon Castillo MD Active GLYBURIDE 5 MG TAB Take one by mouth daily GLYBURIDE 43549504814 No Longer Active Simon Castillo MD Active SYMBICORT 80-4.5 MCG/ACT AERO 2 puffs twice a day BUDESONIDE-FORMOTEROL FUMARATE 69555475419 No Longer Active Simon Castillo MD Active PREDNISONE 20 MG TAB 2 tabs daily for 4 days, 1 tab daily for 4 days, 1/2 tab daily for 4 days PREDNISONE 86830151776 No Longer Active Simon Castillo MD Active AMOXICILLIN 500 MG CAPS 2 po BID x 10 days AMOXICILLIN 39781051276 No Longer Active Simon Castillo MD Active METFORMIN HCL 1000 MG TABS 1 by mounth twice a day METFORMIN HCL 25491989318 No Longer Active Simon Castillo MD Active LUTEIN-ZEAXANTHIN 6-1 MG TABS Take 2 by mouth daily LUTEIN-ZEAXANTHIN 68212592485 Active Simon Castillo MD Active IBUPROFEN 800 MG TABS Take 1 tab every 6 hrs prn IBUPROFEN 49433912178 No Longer Active Simon Castillo MD Active GLYBURIDE 2.5 MG TABS Take one by mouth daily GLYBURIDE 94166413220 No Longer Active Simon Castillo MD Active LANCETS MISC 2 qd LANCETS 86499746105 Active Pamela Conde Active ACACIA CONTOUR TEST STRP Use with testing twice daily GLUCOSE BLOOD 96533503420 Active Pamela Conde Active ACACIA ASPIRIN 325 MG TABS Take one by mouth daily ASPIRIN 45126062919 Active Pamela Conde Active GLYBURIDE 2.5 MG TABS Take one by mouth daily GLYBURIDE 2.5 MG TABS 440334 GLYBURIDE Inactive PREDNISONE 20 MG TAB 2 tabs daily for 4 days, 1 tab daily for 4 days, 1/2 tab daily for 4 days PREDNISONE 20 MG TAB 915135 PREDNISONE Inactive SYMBICORT 80-4.5 MCG/ACT AERO 2 puffs twice a day SYMBICORT 80-4.5 MCG/ACT AERO BUDESONIDE-FORMOTEROL FUMARATE Inactive FLONASE 50 MCG/ACT SUSP 2 puffs in each nostril daily FLONASE 50 MCG/ACT SUSP 559489 FLUTICASONE PROPIONATE Inactive ATENOLOL 50 MG TABS Take one by mouth daily ATENOLOL 50 MG TABS 963718 ATENOLOL Inactive CETIRIZINE HCL 10 MG TABS 1 po qd as needed for allergies CETIRIZINE HCL 10 MG TABS 3763796 CETIRIZINE HCL Inactive LEVAQUIN 750 MG TABS 1 po qod x 5 doses LEVAQUIN 750 MG TABS 805917 LEVOFLOXACIN Inactive GLYBURIDE 5 MG TAB Take one by mouth daily GLYBURIDE 5 MG TAB 828969 GLYBURIDE Inactive PREDNISONE 5 MG TAB Take one po qod PREDNISONE 5 MG TAB 585591 PREDNISONE Inactive AMOXICILLIN 500 MG CAPS 2 po BID x 10 days AMOXICILLIN 500 MG CAPS 689931 AMOXICILLIN Inactive GLYBURIDE 5 MG TAB Take one by mouth daily GLYBURIDE 5 MG TAB 157968 GLYBURIDE Inactive Immunizations Vaccine Administration Date Value Standard Description pneumococcal immunization administered Pneumovax 23 [CVX33] pneumococcal polysaccharide vaccine, 23 valent Vital Signs Date Name Value Unit Range Description blood pressure, diastolic - 8462-4 92 mm[Hg] [...] Panel - Chemistry sodium, serum 137 mmol/L 302-144 2434/06/26 potassium, serum 5.7 mmol/L 3.5-5.2 chloride, serum 104 mmol/L 98-107 carbon dioxide, venous blood 21.2 mmol/L 21.0-32.0 blood glucose 129 mg/dL 65-110 calcium, serum 9.0 mg/dL 8.5-10.1 urea nitrogen, blood 67 mg/dL 7-18 creatinine, serum 3.30 mg/dL 0.60-1.30 sodium, serum 140 mmol/L 077-496 1575/07/10 potassium, serum 5.3 mmol/L 3.5-5.2 chloride, serum 105 mmol/L 98-107 carbon dioxide, venous blood 25.5 mmol/L 21.0-32.0 blood glucose 119 mg/dL 65-110 calcium, serum 8.9 mg/dL 8.5-10.1 urea nitrogen, blood 44 mg/dL 7-18 creatinine, serum 2.50 mg/dL 0.60-1.30 Lab Report: CBC W/DIFF, Comp. Metabolic Panel - Chemistry sodium, serum 137 mmol/L 787-965 4247/06/18 potassium, serum 5.3 mmol/L 3.5-5.2 chloride, serum [...] Panel - Chemistry sodium, serum 137 mmol/L 290-669 0873/10/14 potassium, serum 5.6 mmol/L 3.5-5.2 chloride, serum 103 mmol/L 98-107 carbon dioxide, venous blood 24.9 mmol/L 21.0-32.0 blood glucose 200 mg/dL 65-110 urea nitrogen, blood 43 mg/dL 7-18 creatinine, serum 2.60 mg/dL 0.60-1.30 calcium, serum 9.1 mg/dL 8.5-10.1 sodium, serum 139 mmol/L 858-826 7286/11/13 potassium, serum 5.8 mmol/L 3.5-5.2 chloride, serum 105 mmol/L 98-107 carbon dioxide, venous blood 22.2 mmol/L 21.0-32.0 blood glucose 156 mg/dL 65-110 urea nitrogen, blood 49 mg/dL 7-18 creatinine, serum 2.30 mg/dL 0.60-1.30 calcium, serum 9.2 mg/dL 8.5-10.1 sodium, serum 140 mmol/L 668-844 4335/12/12 potassium, serum 5.5 mmol/L 3.5-5.2 chloride, serum [...] % 11.6-14.8 platelet count 217 10^3/MM^3 10*3/mm3 081-865 4207/10/14 leukocyte count, blood 9.2 10^3/MM^3 10*3/mm3 4.6-10.2 erythrocyte (RBC) count 4.67 10^6/MM^3 10*6/mm3 4.69-6.13 hemoglobin, blood 13.9 g/dL 13.5-17.5 hematocrit, blood 42.4 % 41.0-53.0 mean corpuscular volume, RBC 91 fL 80-97 mean corpuscular hemoglobin, RBC 29.7 pg 27.0-31.2 mean corpuscular hemoglobin concentration, RBC 32.8 G/DL % 31.8- 35.4 red blood cell distribution width 14.7 % 11.6-14.8 platelet count 214 10^3/MM^3 10*3/mm3 545-898 1623/11/13 leukocyte count, blood 9.7 10^3/MM^3 10*3/mm3 4.6-10.2 [...] 6.9 % 4.3-6.0 sodium, serum 137 mmol/L 765-523 8507/08/21 potassium, serum 5.3 mmol/L 3.5-5.2 chloride, serum 104 mmol/L 98-107 carbon dioxide, venous blood 20.4 mmol/L 21.0-32.0 blood glucose 173 mg/dL 65-110 calcium, serum 8.7 mg/dL 8.5-10.1 urea nitrogen, blood 46 mg/dL 7-18 creatinine, serum 2.60 mg/dL 0.60-1.30 Lab Report: Renal Panel - Chemistry sodium, serum 139 mmol/L 285-569 0939/10/21 potassium, serum 4.7 mmol/L 3.5-5.2 chloride, serum 104 mmol/L 98-107 carbon dioxide, venous blood 26.1 mmol/L 21.0-32.0 blood glucose 148 mg/dL 65-110 urea nitrogen, blood 38 mg/dL 7-18 creatinine, serum 2.60 mg/dL 0.60-1.30 calcium, serum 8.6 mg/dL 8.5-10.1 sodium, serum 140 mmol/L 378-680 5941/11/17 potassium, serum 5.0 mmol/L 3.5-5.2 chloride, serum 104 mmol/L 98-107 carbon dioxide, venous blood 24.8 mmol/L 21.0-32.0 blood glucose 146 mg/dL 65-110 urea nitrogen, blood 46 mg/dL 7-18 creatinine, serum 2.60 mg/dL 0.60-1.30 calcium, serum 9.2 mg/dL 8.5-10.1 Lab Report: UADIP W/MICRO, AUTO [...] mg/dL Encounters Code Encounter Date Provider Facility CPT-22764 Level 4 Est. 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 Patient 11:48:19 CDT Simon Castillo MD [facility] CPT-11885 Level 4 Est. Patient 08:59:29 CDT Simon Castillo MD [facility] CPT-90904 Level 4 Est. 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 Patient 11:50:30 CDT Simon Castillo MD [facility] CPT-94196 Level 4 Est. Patient 09:54:46 CDT Simon Castillo MD [facility] CPT-80943 Level 3 Est. Patient 11:10:14 CDT Simon Castillo MD [facility] CPT-68083 Level 4 Est. Patient 09:44:02 CDT Simon Castillo MD [facility] CPT-57368 Level 3 Est. Patient 09:27:48 CDT Simon Castillo MD [facility] CPT-51980 Level 3 Est. 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 Patient 09:51:35 CDT Simon Castillo MD [facility] Procedures Code Procedure Name Date Entry Date Standard Description CPT-71536 Venipuncture Draw Fee 08:07:29 PAINTER TUMBLING BARREL CPT-24190 Venipuncture Draw Fee 09:02:51 PAINTER TUMBLING BARREL CPT-06220 Venipuncture Draw Fee 12:45:08 PAINTER TUMBLING BARREL CPT-40084 Venipuncture Draw Fee 09:25:31 CDT CPT-G0008 Administration of Influenza Virus Vaccine 14:41:29 CDT CPT-38564 Fluzone High-Dose Intramuscular Suspension 14:41:29 CDT CPT-Cryo Cryotherapy 11:48:20 CDT CPT-46094 EKG Trac and Interp 09:21:58 CDT CPT-75808 Chest 2V Frontal and Lat 09:21:58 CDT CPT-Cryo Cryotherapy 10:54:51 PAINTER TUMBLING BARREL CPT-55511 Administration 2+ single or combination vaccines inc oral 10:42:19 CDT CPT-39381 Administration single or combination vaccine inc oral 10 :42:19 CDT CPT-26429 Pneumovax 10:42:19 CDT CPT-51472 Influenza High Dose age 65+ 10:42:19 CDT CPT-91097 Administration single or combination vaccine inc oral 13 :18:54 CDT CPT-54115 Influenza High Dose age 65+ 13:18:54 CDT CPT-89494 Venipuncture Draw Fee 11:53:16 CDT CPT-73345 LS spine comp w obliq 11:03:13 CDT CPT-Cryo Cryotherapy 08:27:16 PAINTER TUMBLING BARREL CPT-15165 Administration single or combination vaccine inc oral 10 :56:34 CDT CPT-96999 Influenza High Dose age 65+ 10:56:34 CDT
--- OUTSIDE RECORDS SUMMARY | 2018-03-31 19:27 | XMS REPORT | Clinical Summary ---
Author Author Admin, RAFFI Organization [facility] Address Unknown [...] Castillo MD FH LUNG CANCER ICD-V16.1 Inactive Siomn Castillo MD ABDOMINAL TENDERNESS ICD-789.60 Inactive Simon [...] TABS 1 tablet by mouth daily LISINOPRIL 79626220036 Active Simon Castillo MD Active GLIMEPIRIDE 1 MG TABS 1 po q a.m. GLIMEPIRIDE 48756133664 Active Simon Castillo MD Active CARVEDILOL 6.25 MG TABS 1 po BID CARVEDILOL 10511290322 Active Simon Castillo MD Active LISINOPRIL-HYDROCHLOROTHIAZIDE 20-12.5 MG TABS 1/2 tab by mouth daily LISINOPRIL-HYDROCHLOROTHIAZIDE 87011664057 No Longer Active Simon Castillo MD Active PREDNISONE 5 MG TABS 1 po qod PREDNISONE 46365213998 Active Simon Castillo MD Active TRAMADOL HCL 50 MG TABS 1-2 tablets every 6 hours as needed for pain TRAMADOL HCL 94202485279 Active Simon Castillo MD Active PREDNISONE 5 MG TAB Take one po qod PREDNISONE 10288365391 No Longer Active Simon Castillo MD Active GLYBURIDE 5 MG TAB Take one by mouth daily GLYBURIDE 09432053369 No Longer Active Simon Castillo MD Active LEVAQUIN 750 MG TABS 1 po qod x 5 doses LEVOFLOXACIN 93952132469 No Longer Active Simon Castillo MD Active CETIRIZINE HCL 10 MG TABS 1 po qd as needed for allergies CETIRIZINE HCL 83401450930 No Longer Active Simon Castillo MD Active FISH OIL 1000 MG CPDR 1 pill by mouth twice daily for cholesterol OMEGA -3 FATTY ACIDS 84264642598 Active Simon Castillo MD Active BILBERRY CAPS 1 tab daily BILBERRY (VACCINIUM MYRTILLUS) CAPS 20310345356 Active Simon Castillo MD Active ATENOLOL 50 MG TABS Take one by mouth daily ATENOLOL 85190712328 No Longer Active Simon Castillo MD Active FLONASE 50 MCG/ACT SUSP 2 puffs in each nostril daily FLUTICASONE PROPIONATE 81021018952 No Longer Active Simon Castillo MD Active GLYBURIDE 5 MG TAB Take one by mouth daily GLYBURIDE 10069677807 No Longer Active Simon Castillo MD Active SYMBICORT 80-4.5 MCG/ACT AERO 2 puffs twice a day BUDESONIDE-FORMOTEROL FUMARATE 36653081847 No Longer Active Simon Castillo MD Active PREDNISONE 20 MG TAB 2 tabs daily for 4 days, 1 tab daily for 4 days, 1/2 tab daily for 4 days PREDNISONE 15075594610 No Longer Active Simon Castillo MD Active AMOXICILLIN 500 MG CAPS 2 po BID x 10 days AMOXICILLIN 96586728702 No Longer Active Simon Castillo MD Active METFORMIN HCL 1000 MG TABS 1 by [facility] twice a day METFORMIN HCL 67472753555 No Longer Active Simon Castillo MD Active LUTEIN-ZEAXANTHIN 6-1 MG TABS Take 2 by mouth daily LUTEIN-ZEAXANTHIN 61727568007 Active iSmon Castillo MD Active IBUPROFEN 800 MG TABS Take 1 tab every 6 hrs prn IBUPROFEN 75124669072 No Longer Active Simon Castillo MD Active GLYBURIDE 2.5 MG TABS Take one by mouth daily GLYBURIDE 01395285227 No Longer Active Simon Castillo MD Active [facility] MISC 2 [facility] Active Pamela Conde Active ACACIA CONTOUR TEST STRP Use with testing twice daily GLUCOSE BLOOD 47907279165 Active Pamela Conde Active ACACIA ASPIRIN 325 MG TABS Take one by mouth daily ASPIRIN 25555250730 Active Pamela Conde Active GLYBURIDE 2.5 MG TABS Take one by mouth daily GLYBURIDE 2.5 MG TABS 922650 GLYBURIDE Inactive PREDNISONE 20 MG TAB 2 tabs daily for 4 days, 1 tab daily for 4 days, 1/2 tab daily for 4 days PREDNISONE 20 MG TAB 623029 PREDNISONE Inactive SYMBICORT 80-4.5 MCG/ACT AERO 2 puffs twice a day SYMBICORT 80-4.5 MCG/ACT AERO BUDESONIDE-FORMOTEROL FUMARATE Inactive FLONASE 50 MCG/ACT SUSP 2 puffs in each nostril daily FLONASE 50 MCG/ACT SUSP 811480 FLUTICASONE PROPIONATE Inactive ATENOLOL 50 MG TABS Take one by mouth daily ATENOLOL 50 MG TABS 360557 ATENOLOL Inactive CETIRIZINE HCL 10 MG TABS 1 po qd as needed for allergies CETIRIZINE HCL 10 MG TABS 8741382 CETIRIZINE HCL Inactive LEVAQUIN 750 MG TABS 1 po qod x 5 doses LEVAQUIN 750 MG TABS 684011 LEVOFLOXACIN Inactive GLYBURIDE 5 MG TAB Take one by mouth daily GLYBURIDE 5 MG TAB 357337 GLYBURIDE Inactive PREDNISONE 5 MG TAB Take one po qod PREDNISONE 5 MG TAB 997520 PREDNISONE Inactive AMOXICILLIN 500 MG CAPS 2 po BID x 10 days AMOXICILLIN 500 MG CAPS 702433 AMOXICILLIN Inactive GLYBURIDE 5 MG TAB Take one by mouth daily GLYBURIDE 5 MG TAB 037058 GLYBURIDE Inactive Immunizations Vaccine Administration Date Value [...] Panel - Chemistry sodium, serum 137 mmol/L 786-293 4009/06/26 potassium, serum 5.7 mmol/L 3.5-5.2 chloride, serum 104 mmol/L 98-107 carbon dioxide, venous blood 21.2 mmol/L 21.0-32.0 blood glucose 129 mg/dL 65-110 calcium, serum 9.0 mg/dL 8.5-10.1 urea nitrogen, blood 67 mg/dL 7-18 creatinine, serum 3.30 mg/dL 0.60-1.30 sodium, serum 140 mmol/L 549-534 1066/07/10 potassium, serum 5.3 mmol/L 3.5-5.2 chloride, serum 105 mmol/L 98-107 carbon dioxide, venous blood 25.5 mmol/L 21.0-32.0 blood glucose 119 mg/dL 65-110 calcium, serum 8.9 mg/dL 8.5-10.1 urea nitrogen, blood 44 mg/dL 7-18 creatinine, serum 2.50 mg/dL 0.60-1.30 Lab Report: CBC W/DIFF, Comp. Metabolic Panel - Chemistry sodium, serum 137 mmol/L 990-957 6608/06/18 potassium, serum 5.3 mmol/L 3.5-5.2 chloride, serum [...] Panel - Chemistry sodium, serum 137 mmol/L 775-501 1181/10/14 potassium, serum 5.6 mmol/L 3.5-5.2 chloride, serum 103 mmol/L 98-107 carbon dioxide, venous blood 24.9 mmol/L 21.0-32.0 blood glucose 200 mg/dL 65-110 urea nitrogen, blood 43 mg/dL 7-18 creatinine, serum 2.60 mg/dL 0.60-1.30 calcium, serum 9.1 mg/dL 8.5-10.1 sodium, serum 139 mmol/L 389-626 1681/11/13 potassium, serum 5.8 mmol/L 3.5-5.2 chloride, serum 105 mmol/L 98-107 carbon dioxide, venous blood 22.2 mmol/L 21.0-32.0 blood glucose 156 mg/dL 65-110 urea nitrogen, blood 49 mg/dL 7-18 creatinine, serum 2.30 mg/dL 0.60-1.30 calcium, serum 9.2 mg/dL 8.5-10.1 sodium, serum 140 mmol/L 129-706 1218/12/12 potassium, serum 5.5 mmol/L 3.5-5.2 chloride, serum [...] % 11.6-14.8 platelet count 217 10^3/MM^3 10*3/mm3 957-010 0071/10/14 leukocyte count, blood 9.2 10^3/MM^3 10*3/mm3 4.6-10.2 erythrocyte (RBC) count 4.67 10^6/MM^3 10*6/mm3 4.69-6.13 hemoglobin, blood 13.9 g/dL 13.5-17.5 hematocrit, blood 42.4 % 41.0-53.0 mean corpuscular volume, RBC 91 fL 80-97 mean corpuscular hemoglobin, RBC 29.7 pg 27.0-31.2 mean corpuscular hemoglobin concentration, RBC 32.8 G/DL % 31.8- 35.4 red blood cell distribution width 14.7 % 11.6-14.8 platelet count 214 10^3/MM^3 10*3/mm3 344-008 2595/11/13 leukocyte count, blood 9.7 10^3/MM^3 10*3/mm3 4.6-10.2 [...] 6.9 % 4.3-6.0 sodium, serum 137 mmol/L 682-385 4089/08/21 potassium, serum 5.3 mmol/L 3.5-5.2 chloride, serum 104 mmol/L 98-107 carbon dioxide, venous blood 20.4 mmol/L 21.0-32.0 blood glucose 173 mg/dL 65-110 calcium, serum 8.7 mg/dL 8.5-10.1 urea nitrogen, blood 46 mg/dL 7-18 creatinine, serum 2.60 mg/dL 0.60-1.30 Lab Report: Prostatic Specific Ag - Chemistry prostate specific antigen 1.52 ng/mL 0.00-4.00 Lab Report: Renal Panel - Chemistry sodium, serum 140 mmol/L 768-943 3132/11/17 potassium, serum 5.0 mmol/L 3.5-5.2 chloride, serum 104 mmol/L 98-107 carbon dioxide, venous blood 24.8 mmol/L 21.0-32.0 blood glucose 146 mg/dL 65-110 urea nitrogen, blood 46 mg/dL 7-18 creatinine, serum 2.60 mg/dL 0.60-1.30 calcium, serum 9.2 mg/dL 8.5-10.1 sodium, serum 139 mmol/L 300-342 8696/10/21 potassium, serum 4.7 mmol/L 3.5-5.2 chloride, serum [...] mg/dL Encounters Code Encounter Date Provider Facility CPT-59747 Level 4 Est. Patient 10:17:25 CDT Simon Castillo MD [facility] CPT-13557 Level 4 Est. Patient 10:10:09 [employer] Simon Castillo MD [facility] CPT-45506 Level 4 Est. Patient 11:48:19 CDT Simon Castillo MD [facility] CPT-32639 Level 4 Est. Patient 08:59:29 CDT Simon Castillo MD [facility] CPT-32269 Level 4 Est. Patient 10:52:51 [employer] Simon Castillo MD [facility] CPT-20374 Level 4 Est. Patient 11:50:30 CDT Simon Castillo MD [facility] CPT-85406 Level 4 Est. Patient 09:54:46 CDT Simon Castillo MD [facility] CPT-85030 Level 3 Est. Patient 11:10:14 CDT Simon Castillo MD [facility] CPT-54769 Level 4 Est. Patient 09:44:02 CDT Simon Castillo MD [facility] CPT-98954 Level 3 Est. Patient 09:27:48 CDT Simon Castillo MD [facility] CPT-34518 Level 3 Est. Patient 09:58:06 [employer] Simon Castillo MD [facility] CPT-88938 Level 3 Est. Patient 09:51:35 CDT Simon Castillo MD [facility] Procedures Code Procedure Name Date Entry Date Standard Description CPT-84416 Venipuncture Draw Fee 08:07:29 [employer] CPT-31699 Venipuncture Draw Fee 09:02:51 [employer] CPT-02147 Venipuncture Draw Fee 12:45:08 [employer] CPT-61783 Venipuncture Draw Fee 09:25:31 CDT CPT-G0008 Administration of Influenza Virus Vaccine 14:41:29 CDT CPT-41634 Fluzone High-Dose Intramuscular Suspension 14:41:29 CDT CPT-Cryo Cryotherapy 11:48:20 CDT CPT-60313 EKG Trac and Interp 09:21:58 CDT CPT-51480 Chest 2V Frontal and Lat 09:21:58 CDT CPT-Cryo Cryotherapy 10:54:51 [employer] CPT-38867 Administration 2+ single or combination vaccines inc oral 10:42:19 CDT CPT-17159 Administration single or combination vaccine inc oral 10 :42:19 CDT CPT-19709 Pneumovax 10:42:19 CDT CPT-61039 Influenza High Dose age 65+ 10:42:19 CDT CPT-61433 Administration single or combination vaccine inc oral 13 :18:54 CDT CPT-08812 Influenza High Dose age 65+ 13:18:54 CDT CPT-98606 Venipuncture Draw Fee 11:53:16 CDT CPT-47378 LS spine comp w obliq 11:03:13 CDT CPT-Cryo Cryotherapy 08:27:16 [employer] CPT-17755 Administration single or combination vaccine inc oral 10 :56:34 CDT CPT-65159 Influenza High Dose age 65+ 10:56:34 CDT
--- OUTSIDE RECORDS SUMMARY | 2018-03-31 19:28 | XMS REPORT | Clinical Summary ---
Author Author Admin, RAFFI Organization [facility] Address Unknown Phone Unavailable Allergies, Adverse Reactions, [...] Castillo MD SINUSITIS, ACUTE ICD-461.9 Inactive Simon Csatillo MD ABDOMINAL PAIN RIGHT LOWER QUADRANT ICD-789.03 [...] MG TABS 1 po q a.m. GLIMEPIRIDE 62517831970 Active Simon Castillo MD Active CARVEDILOL 6.25 MG TABS 1 po BID CARVEDILOL 79435139319 Active Simon Castillo MD Active LISINOPRIL-HYDROCHLOROTHIAZIDE 20-12.5 MG TABS 1/2 tab by mouth daily LISINOPRIL-HYDROCHLOROTHIAZIDE 21530177679 Active Simon Castillo MD Active PREDNISONE 5 MG TABS 1 po qod PREDNISONE 43046431794 Active Giles Tatum APRN Active TRAMADOL HCL 50 MG TABS 1-2 tablets every 6 hours as needed for pain TRAMADOL HCL 50981966325 Active Simon Castillo MD Active PREDNISONE 5 MG TAB Take one po qod PREDNISONE 73733861763 No Longer Active Simon Castillo MD Active GLYBURIDE 5 MG TAB Take one by mouth daily GLYBURIDE 29381064049 No Longer Active Simon Castillo MD Active LEVAQUIN 750 MG TABS 1 po qod x 5 doses LEVOFLOXACIN 47339774788 No Longer Active Simon Castillo MD Active CETIRIZINE HCL 10 MG TABS 1 po qd as needed for allergies CETIRIZINE HCL 02851373388 No Longer Active Simon Castillo MD Active FISH OIL 1000 MG CPDR 1 pill by mouth twice daily for cholesterol OMEGA -3 FATTY ACIDS 28631093278 Active Simon Castillo MD Active BILBERRY CAPS 1 tab daily BILBERRY (VACCINIUM MYRTILLUS) CAPS 07300625968 Active Simon Castillo MD Active ATENOLOL 50 MG TABS Take one by mouth daily ATENOLOL 68845710555 No Longer Active Simon Castillo MD Active FLONASE 50 MCG/ACT SUSP 2 puffs in each nostril daily FLUTICASONE PROPIONATE 06412742594 No Longer Active Simon Castillo MD Active GLYBURIDE 5 MG TAB Take one by mouth daily GLYBURIDE 94098368280 No Longer Active Simon Castillo MD Active SYMBICORT 80-4.5 MCG/ACT AERO 2 puffs twice a day BUDESONIDE-FORMOTEROL FUMARATE 92503945589 No Longer Active Simon Castillo MD Active PREDNISONE 20 MG TAB 2 tabs daily for 4 days, 1 tab daily for 4 days, 1/2 tab daily for 4 days PREDNISONE 84267423665 No Longer Active Simon Castillo MD Active AMOXICILLIN 500 MG CAPS 2 po BID x 10 days AMOXICILLIN 64169387092 No Longer Active Simon Castillo MD Active METFORMIN HCL 1000 MG TABS 1 by mounth twice a day METFORMIN HCL 71227157939 No Longer Active Simon Castillo MD Active LUTEIN-ZEAXANTHIN 6-1 MG TABS Take 2 by mouth daily LUTEIN-ZEAXANTHIN 91818756056 Active Simon Castillo MD Active IBUPROFEN 800 MG TABS Take 1 tab every 6 hrs prn IBUPROFEN 53943311325 No Longer Active Simon Castillo MD Active GLYBURIDE 2.5 MG TABS Take one by mouth daily GLYBURIDE 92606632343 No Longer Active Simon Castillo MD Active LANCETS MISC 2 qd LANCETS 93896449371 Active Pamela Conde Active ACACIA CONTOUR TEST STRP Use with testing twice daily GLUCOSE BLOOD 65726965767 Active Pamlea Conde Active ACACIA ASPIRIN 325 MG TABS Take one by mouth daily ASPIRIN 00107195262 Active Pamela Conde Active GLYBURIDE 2.5 MG TABS Take one by mouth daily GLYBURIDE 2.5 MG TABS 463936 GLYBURIDE Inactive PREDNISONE 20 MG TAB 2 tabs daily for 4 days, 1 tab daily for 4 days, 1/2 tab daily for 4 days PREDNISONE 20 MG TAB 664127 PREDNISONE Inactive SYMBICORT 80-4.5 MCG/ACT AERO 2 puffs twice a day SYMBICORT 80-4.5 MCG/ACT AERO BUDESONIDE-FORMOTEROL FUMARATE Inactive FLONASE 50 MCG/ACT SUSP 2 puffs in each nostril daily FLONASE 50 MCG/ACT SUSP 858295 FLUTICASONE PROPIONATE Inactive ATENOLOL 50 MG TABS Take one by mouth daily ATENOLOL 50 MG TABS 175774 ATENOLOL Inactive CETIRIZINE HCL 10 MG TABS 1 po qd as needed for allergies CETIRIZINE HCL 10 MG TABS 4852626 CETIRIZINE HCL Inactive LEVAQUIN 750 MG TABS 1 po qod x 5 doses LEVAQUIN 750 MG TABS 893030 LEVOFLOXACIN Inactive GLYBURIDE 5 MG TAB Take one by mouth daily GLYBURIDE 5 MG TAB 780320 GLYBURIDE Inactive PREDNISONE 5 MG TAB Take one po qod PREDNISONE 5 MG TAB 155503 PREDNISONE Inactive AMOXICILLIN 500 MG CAPS 2 po BID x 10 days AMOXICILLIN 500 MG CAPS 189183 AMOXICILLIN Inactive GLYBURIDE 5 MG TAB Take one by mouth daily GLYBURIDE 5 MG TAB 587407 GLYBURIDE Inactive Immunizations Vaccine Administration Date Value [...] Panel - Chemistry sodium, serum 137 mmol/L 541-095 2470/06/26 potassium, serum 5.7 mmol/L 3.5-5.2 chloride, serum 104 mmol/L 98-107 carbon dioxide, venous blood 21.2 mmol/L 21.0-32.0 blood glucose 129 mg/dL 65-110 calcium, serum 9.0 mg/dL 8.5-10.1 urea nitrogen, blood 67 mg/dL 7-18 creatinine, serum 3.30 mg/dL 0.60-1.30 sodium, serum 140 mmol/L 664-171 4705/07/10 potassium, serum 5.3 mmol/L 3.5-5.2 chloride, serum 105 mmol/L 98-107 carbon dioxide, venous blood 25.5 mmol/L 21.0-32.0 blood glucose 119 mg/dL 65-110 calcium, serum 8.9 mg/dL 8.5-10.1 urea nitrogen, blood 44 mg/dL 7-18 creatinine, serum 2.50 mg/dL 0.60-1.30 Lab Report: CBC W/DIFF, Comp. Metabolic Panel - Chemistry sodium, serum 137 mmol/L 411-288 7679/06/18 potassium, serum 5.3 mmol/L 3.5-5.2 chloride, serum [...] Panel - Chemistry sodium, serum 137 mmol/L 237-870 6652/10/14 potassium, serum 5.6 mmol/L 3.5-5.2 chloride, serum 103 mmol/L 98-107 carbon dioxide, venous blood 24.9 mmol/L 21.0-32.0 blood glucose 200 mg/dL 65-110 urea nitrogen, blood 43 mg/dL 7-18 creatinine, serum 2.60 mg/dL 0.60-1.30 calcium, serum 9.1 mg/dL 8.5-10.1 sodium, serum 139 mmol/L 949-243 2191/11/13 potassium, serum 5.8 mmol/L 3.5-5.2 chloride, serum 105 mmol/L 98-107 carbon dioxide, venous blood 22.2 mmol/L 21.0-32.0 blood glucose 156 mg/dL 65-110 urea nitrogen, blood 49 mg/dL 7-18 creatinine, serum 2.30 mg/dL 0.60-1.30 calcium, serum 9.2 mg/dL 8.5-10.1 sodium, serum 140 mmol/L 627-895 9681/12/12 potassium, serum 5.5 mmol/L 3.5-5.2 chloride, serum [...] % 11.6-14.8 platelet count 217 10^3/MM^3 10*3/mm3 094-559 4735/10/14 leukocyte count, blood 9.2 10^3/MM^3 10*3/mm3 4.6-10.2 erythrocyte (RBC) count 4.67 10^6/MM^3 10*6/mm3 4.69-6.13 hemoglobin, blood 13.9 g/dL 13.5-17.5 hematocrit, blood 42.4 % 41.0-53.0 mean corpuscular volume, RBC 91 fL 80-97 mean corpuscular hemoglobin, RBC 29.7 pg 27.0-31.2 mean corpuscular hemoglobin concentration, RBC 32.8 G/DL % 31.8- 35.4 red blood cell distribution width 14.7 % 11.6-14.8 platelet count 214 10^3/MM^3 10*3/mm3 589-942 5934/11/13 leukocyte count, blood 9.7 10^3/MM^3 10*3/mm3 4.6-10.2 [...] 6.9 % 4.3-6.0 sodium, serum 137 mmol/L 329-531 3957/08/21 potassium, serum 5.3 mmol/L 3.5-5.2 chloride, serum 104 mmol/L 98-107 carbon dioxide, venous blood 20.4 mmol/L 21.0-32.0 blood glucose 173 mg/dL 65-110 calcium, serum 8.7 mg/dL 8.5-10.1 urea nitrogen, blood 46 mg/dL 7-18 creatinine, serum 2.60 mg/dL 0.60-1.30 Lab Report: Prostatic Specific Ag - Chemistry prostate specific antigen 1.52 ng/mL 0.00-4.00 Lab Report: Renal Panel - Chemistry sodium, serum 140 mmol/L 644-058 1949/11/17 potassium, serum 5.0 mmol/L 3.5-5.2 chloride, serum 104 mmol/L 98-107 carbon dioxide, venous blood 24.8 mmol/L 21.0-32.0 blood glucose 146 mg/dL 65-110 urea nitrogen, blood 46 mg/dL 7-18 creatinine, serum 2.60 mg/dL 0.60-1.30 calcium, serum 9.2 mg/dL 8.5-10.1 sodium, serum 139 mmol/L 936-540 2821/10/21 potassium, serum 4.7 mmol/L 3.5-5.2 chloride, serum [...] mg/dL Encounters Code Encounter Date Provider Facility CPT-60255 Level 4 Est. Patient 10:10:09 [employer] Simon Castillo MD [facility] CPT-43074 Level 4 Est. Patient 11:48:19 CDT Simon Castillo MD [facility] CPT-83986 Level 4 Est. Patient 08:59:29 CDT Simon Castillo MD [facility] CPT-80429 Level 4 Est. Patient 10:52:51 FIN[employer]MIN Simon Castillo MD [facility] CPT-92159 Level 4 Est. Patient 11:50:30 CDT Simon Castillo MD [facility] CPT-31270 Level 4 Est. Patient 09:54:46 CDT Simon Castillo MD [facility] CPT-63989 Level 3 Est. Patient 11:10:14 CDT Simon Castillo MD [facility] CPT-02304 Level 4 Est. Patient 09:44:02 CDT Simon Castillo MD [facility] CPT-00199 Level 3 Est. Patient 09:27:48 CDT Simon Castillo MD [facility] CPT-96397 Level 3 Est. Patient 09:58:06 FINANCE ADMIN Simon Castillo MD [facility] CPT-21117 Level 3 Est. Patient 09:51:35 CDT Simon Castillo MD [facility] Procedures Code Procedure Name Date Entry Date Standard Description CPT-28256 Venipuncture Draw Fee 08:07:29 [employer] CPT-46665 Venipuncture Draw Fee 09:02:51 [employer] CPT-52555 Venipuncture Draw Fee 12:45:08 [employer] CPT-69532 Venipuncture Draw Fee 09:25:31 CDT CPT-G0008 Administration of Influenza Virus Vaccine 14:41:29 CDT CPT-90491 Fluzone High-Dose Intramuscular Suspension 14:41:29 CDT CPT-Cryo Cryotherapy 11:48:20 CDT CPT-25880 EKG Trac and Interp 09:21:58 CDT CPT-58574 Chest 2V Frontal and Lat 09:21:58 CDT CPT-Cryo Cryotherapy 10:54:51 [employer] ADMIN CPT-04990 Administration 2+ single or combination vaccines inc oral 10:42:19 CDT CPT-19799 Administration single or combination vaccine inc oral 10 :42:19 CDT CPT-39532 Pneumovax 10:42:19 CDT CPT-62463 Influenza High Dose age 65+ 10:42:19 CDT CPT-21273 Administration single or combination vaccine inc oral 13 :18:54 CDT CPT-27621 Influenza High Dose age 65+ 13:18:54 CDT CPT-72600 Venipuncture Draw Fee 11:53:16 CDT CPT-10922 LS spine comp w obliq 11:03:13 CDT CPT-Cryo Cryotherapy 08:27:16 FINANCE ADMIN CPT-49263 Administration single or combination vaccine inc oral 10 :56:34 CDT CPT-28302 Influenza High Dose age 65+ 10:56:34 CDT
--- OUTSIDE RECORDS SUMMARY | 2018-03-31 19:29 | XMS REPORT | Clinical Summary ---
Author Author Admin, RAFFI Organization [facility] Address Unknown Phone Allergies, Adverse Reactions, Alerts Allergy Name Reaction Description Start Date Severity Status Provider No Known Allergies Rose Marie MCDERMOTT Conditions or Problems Problem Name Problem [...] history of other specified diseases Obesity 278.00 Active Simon Castillo MD Obesity , unspecified Allergic rhinitis 477.9 Active Simon Castillo MD Allergic rhinitis, cause unspecified Actinic keratosis 702.0 Active Simon Castillo MD Actinic keratosis Chest pain 786.50 Active Simon Castillo MD Unspecified chest pain Cough 786.2 Active Simon Castillo MD Cough FH DIABETES ICD-V18.0 Inactive Simon Castillo MD [...] HX OF ICD-V13.89 Inactive Simon Castillo MD Medication List Medication Instructions Start Date Stop Date Generic Name NDC Status Provider Patient Instruction LEVAQUIN 750 MG TABS 1 po qod x 5 doses LEVOFLOXACIN 07762612499 Active Simon Castillo MD Active CETIRIZINE HCL 10 MG TABS 1 po qd as needed for allergies CETIRIZINE HCL 94450646348 No Longer Active Simon Castillo MD Active FISH OIL 1000 MG CPDR 1 pill by mouth twice daily for cholesterol OMEGA -3 FATTY ACIDS 56858111381 Active Simon Castillo MD Active BILBERRY CAPS 1 tab daily BILBERRY (VACCINIUM MYRTILLUS) CAPS 69136595862 Active Simon Castillo MD Active PREDNISONE 5 MG TAB Take one po qod PREDNISONE 59489153161 Active Simon Castillo MD Active ATENOLOL 50 MG TABS Take one by mouth daily ATENOLOL 76113806880 No Longer Active Simon Castillo MD Active GLYBURIDE 5 MG TAB Take one by mouth daily GLYBURIDE 54783699066 Active Jami Dickey Active FLONASE 50 MCG/ACT SUSP 2 puffs in each nostril daily FLUTICASONE PROPIONATE 34427347258 No Longer Active Simon Castillo MD Active GLYBURIDE 5 MG TAB Take one by mouth daily GLYBURIDE 45172859198 No Longer Active Simon Castillo MD Active SYMBICORT 80-4.5 MCG/ACT AERO 2 puffs twice a day BUDESONIDE-FORMOTEROL FUMARATE 19296462145 No Longer Active Simon Castillo MD Active PREDNISONE 20 MG TAB 2 tabs daily for 4 days, 1 tab daily for 4 days, 1/2 tab daily for 4 days PREDNISONE 76092047893 No Longer Active Simon Castillo MD Active AMOXICILLIN 500 MG CAPS 2 po BID x 10 days AMOXICILLIN 09258011524 No Longer Active Simon Castillo MD Active METFORMIN HCL 1000 MG TABS 1 by mount twice a day METFORMIN HCL 89228650593 Active Simon Castillo MD Active LUTEIN-ZEAXANTHIN 6-1 MG TABS Take 2 by mouth daily LUTEIN-ZEAXANTHIN 85885188788 Active Simon Castillo MD Active IBUPROFEN 800 MG TABS Take 1 tab every 6 hrs prn IBUPROFEN 75319448520 Active Simon Castillo MD Active LISINOPRIL-HYDROCHLOROTHIAZIDE 20-12.5 MG TABS 1 tab by mouth daily LISINOPRIL-HYDROCHLOROTHIAZIDE 45959709562 Active Simon Castillo MD Active GLYBURIDE 2.5 MG TABS Take one by mouth daily GLYBURIDE 25779762714 No Longer Active Simon Castillo MD Active LANCETS MISC 2 qd LANCETS 75384609112 Active Pamela Conde Active [employer] CONTOUR TEST STRP Use with testing twice daily GLUCOSE BLOOD 80439826128 Active Pamela Conde Active ACACIA ASPIRIN 325 MG TABS Take one by mouth daily ASPIRIN 32670098591 Active Pamela Conde Active GLYBURIDE 2.5 MG TABS Take one by mouth daily GLYBURIDE 2.5 MG TABS 883199 GLYBURIDE Inactive PREDNISONE 20 MG TAB 2 tabs daily for 4 days, 1 tab daily for 4 days, 1/2 tab daily for 4 days PREDNISONE 20 MG TAB 960595 PREDNISONE Inactive SYMBICORT 80-4.5 MCG/ACT AERO 2 puffs twice a day SYMBICORT 80-4.5 MCG/ACT AERO BUDESONIDE-FORMOTEROL FUMARATE Inactive FLONASE 50 MCG/ACT SUSP 2 puffs in each nostril daily FLONASE 50 MCG/ACT SUSP 204494 FLUTICASONE PROPIONATE Inactive ATENOLOL 50 MG TABS Take one by mouth daily ATENOLOL 50 MG TABS 289121 ATENOLOL Inactive CETIRIZINE HCL 10 MG TABS 1 po qd as needed for allergies CETIRIZINE HCL 10 MG TABS 0489259 CETIRIZINE HCL Inactive AMOXICILLIN 500 MG CAPS 2 po BID x 10 days AMOXICILLIN 500 MG CAPS 761782 AMOXICILLIN Inactive GLYBURIDE 5 MG TAB Take one by mouth daily GLYBURIDE 5 MG TAB 726083 GLYBURIDE Inactive Immunizations Vaccine Administration Date Value Standard Description pneumococcal immunization administered Pneumovax 23 [CVX33] pneumococcal polysaccharide vaccine, 23 valent Vital Signs Date Name Value Unit Range Description blood pressure, diastolic - 8462-4 73 mm[Hg] BP castillo blood pressure, systolic - 8480-6 129 mm[Hg] BP sys pulse rate E&M - 8867-4 92 /min Heart rate temperature E&M 96.9 [degF] Body temperature weight E&M - 3141-9 203 [lb_av] Weight Measured blood pressure, diastolic, second observation 74 mm[Hg] BP castillo blood pressure, diastolic - 8462-4 81 mm[Hg] BP castillo blood pressure, systolic, second observation 150 mm[Hg] BP sys blood pressure, systolic - 8480-6 156 mm[Hg] BP sys height E&M - 8302-2 66.5 [in_us] Bdy height pulse rate E&M - 8867-4 80 /min Heart rate temperature E&M 97.0 [degF] Body temperature weight E&M - 3141-9 212.38 [lb_av] Weight Measured blood pressure, diastolic - 8462-4 73 mm[Hg] BP castillo blood pressure, systolic - 8480-6 127 mm[Hg] BP sys height E&M - 8302-2 66.5 [in_us] Bdy height pulse rate E&M - 8867-4 52 /min Heart rate temperature E&M 96.9 [degF] Body temperature weight E&M - 3141-9 212 [lb_av] Weight Measured Diagnostic Results Date Name Value Unit Range Description Lab Report: CBC W/DIFF, Comp. Metabolic Panel - Chemistry sodium, serum 137 mmol/L 796-703 6287/06/18 potassium, serum 5.3 mmol/L 3.5-5.2 chloride, serum [...] 236 10^3/MM^3 10*3/mm3 142-424 Lab Report: CBC, Comp. Metabolic Panel, MICROALBUMIN, HGBA1C, UADIP (AUTO) - Chemistry sodium, serum 141 mmol/L 891-010 3563/07/29 potassium, serum 5.7 mmol/L 3.5-5.2 chloride, serum 107 mmol/L 98-107 carbon dioxide, venous blood 25.7 mmol/L 21.0-32.0 blood glucose 112 mg/dL 65-110 urea nitrogen, blood 37 mg/dL 7-18 creatinine, serum 2.20 mg/dL 0.60-1.30 alanine aminotransferase (SGPT), serum 37 U/L 12-78 aspartate aminotransferase (SGOT), serum 26 U/L 15-37 alkaline phosphatase, serum 96 U/L 50-136 calcium, serum 8.7 mg/dL 8.5-10.1 bilirubin, serum, total 0.74 mg/dL 0.00-1.00 albumin/creatinine ratio, urine 30 - 300 mg/g mg/g{creat} 0-29 hemoglobin A1C, blood, as % of total hemoglobin 6.3 % 4.3-6.0 protein, total urine random Negative mg/dL Negative RBC, urine, dipstick Negative Negative Lab Report: CBC, Comp. Metabolic Panel, MICROALBUMIN, HGBA1C, UADIP (AUTO) - Hematology leukocyte count, blood 11.5 10^3/MM^3 10*3/mm3 4.6-10.2 erythrocyte (RBC) count 4.67 10^6/MM^3 10*6/mm3 4.69-6.13 hemoglobin, blood 13.7 g/dL 13.5-17.5 hematocrit, blood 43.0 % 41.0-53.0 mean corpuscular volume, RBC 92 fL 80-97 mean corpuscular hemoglobin, RBC 29.3 pg 27.0-31.2 mean corpuscular hemoglobin concentration, RBC 31.8 G/DL % 31.8- 35.4 red blood cell distribution width 14.6 % 11.6-14.8 platelet count 205 10^3/MM^3 10*3/mm3 142-424 Lab Report: CBC, Comp. Metabolic Panel, MICROALBUMIN, HGBA1C, UADIP (AUTO) - Lab microalbumin, urine 30 0-19 Lab Report: CBC, Comp. Metabolic Panel, MICROALBUMIN, HGBA1C, UADIP (AUTO) - Urinalysis urobilinogen, urine, semiquantitative (dipstick) 0.2 Normal leukocyte esterase, urine, by dipstick Negative Negative nitrite, urine, semiquantitative Negative Negative glucose, urine, semiquantitative Negative Negative ketones, urine, by test strip Negative Negative bilirubin, urine Negative Negative urine color Yellow Colorless;Lightyellow;Straw;Yellow appearance, urine Clear Clear specific gravity, urine 1.020 1.000-1.030 pH, urine, semiquantitative 5.5 5.0-8.5 Lab Report: HGBA1C - Chemistry hemoglobin A1C, blood, as % of total hemoglobin 7.8 % 4.3-6.0 Lab Report: HGBA1C, CBC W/DIFF, Comp. Metabolic Panel, Prostatic Specifi ... - Chemistry hemoglobin A1C, blood, as % of total hemoglobin 7.2 % 4.3-6.0 sodium, serum 137 mmol/L 013-226 5987/01/23 potassium, serum 5.2 mmol/L 3.5-5.2 chloride, serum 102 mmol/L 98-107 carbon dioxide, venous blood 22.9 mmol/L 21.0-32.0 blood glucose 142 mg/dL 65-110 urea nitrogen, blood 43 mg/dL 7-18 creatinine, serum 2.20 mg/dL 0.60-1.30 alanine aminotransferase (SGPT), serum 26 U/L 12-78 aspartate aminotransferase (SGOT), serum 19 U/L 15-37 alkaline phosphatase, serum 109 U/L 50-136 calcium, serum 9.2 mg/dL 8.5-10.1 bilirubin, serum, total 0.70 mg/dL 0.00-1.00 prostate specific antigen 1.73 ng/mL 0.00-4.00 Lab Report: HGBA1C, CBC W/DIFF, Comp. Metabolic Panel, Prostatic Specifi ... - Hematology leukocyte count, blood 11.8 10^3/MM^3 10*3/mm3 4.6-10.2 neutrophils as percent of blood leukocytes 76.8 % 42.2-75.2 monocytes as percent of blood leukocytes 4.7 % 1.7-9.3 lymphocytes as percent of blood leukocytes 15.8 % 20.5-51.1 erythrocyte (RBC) count 4.85 10^6/MM^3 10*6/mm3 4.69-6.13 hemoglobin, blood 14.3 g/dL 13.5-17.5 hematocrit, blood 43.7 % 41.0-53.0 mean corpuscular volume, RBC 90 fL 80-97 mean corpuscular hemoglobin, RBC 29.4 pg 27.0-31.2 mean corpuscular hemoglobin concentration, RBC 32.6 G/DL % 31.8- 35.4 red blood cell distribution width 14.5 % 11.6-14.8 platelet count 254 10^3/MM^3 10*3/mm3 142-424 Office Visit: 6 month f/u 306 - Chemistry cholesterol, target level 200 mg/dL triglyceride, target level 200 mg/dL HDL cholesterol, serum, target level 35 mg/dL LDL target level 100 mg/dL Encounters Code Encounter Date Provider Facility CPT-96592 Level 4 Est. Patient 08:59:29 CDT Simon Castillo MD [facility] CPT-30275 Level 4 Est. 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 Patient 11:50:30 CDT Simon Castillo MD [facility] CPT-37573 Level 4 Est. Patient 09:54:46 CDT Simon Castillo MD [facility] CPT-03906 Level 3 Est. Patient 11:10:14 CDT Simon Castillo MD [facility] CPT-95181 Level 4 Est. Patient 09:44:02 CDT Simon Castillo MD [facility] CPT-55499 Level 3 Est. Patient 09:27:48 CDT Simon Castillo MD [facility] CPT-19710 Level 3 Est. Patient 09:58:06 INSTALLATIONS INSPECTOR Simon Castillo MD [facility] CPT-98247 Level 3 Est. Patient 09:51:35 CDT Simon Castillo MD [facility] Procedures Code Procedure Name Date Entry Date Standard Description CPT-98476 EKG Trac and Interp 09:21:58 CDT CPT-49445 Chest 2V Frontal and Lat 09:21:58 CDT CPT-Cryo Cryotherapy 10:54:51 INSTALLATIONS INSPECTOR CPT-72554 Administration 2+ single or combination vaccines inc oral 10:42:19 CDT CPT-25629 Administration single or combination vaccine inc oral 10 :42:19 CDT CPT-20217 Pneumovax 10:42:19 CDT CPT-12013 Influenza High Dose age 65+ 10:42:19 CDT CPT-54412 Administration single or combination vaccine inc oral 13 :18:54 CDT CPT-73598 Influenza High Dose age 65+ 13:18:54 CDT CPT-27907 Venipuncture Draw Fee 11:53:16 CDT CPT-96247 LS spine comp w obliq 11:03:13 CDT CPT-Cryo Cryotherapy 08:27:16 INSTALLATIONS INSPECTOR CPT-37034 Administration single or combination vaccine inc oral 10 :56:34 CDT CPT-33100 Influenza High Dose age 65+ 10:56:34 CDT
--- OUTSIDE RECORDS SUMMARY | 2018-03-31 19:30 | XMS REPORT | Clinical Summary ---
Author Author Admin, RAFFI Organization [facility] Address Unknown Phone Unavailable Allergies, Adverse Reactions, Alerts Allergy Name Reaction Description Start Date Severity Status Provider No Known Allergies BALDEMAR Mercado Conditions or Problems Problem Name Problem Code [...] whether generalized or localized, involving unspecified site DIABETES ICD-V18.0 Inactive Simon Castillo [...] Generic Name NDC Status Provider Patient Instruction TRAMADOL HCL 50 MG TABS 1-2 tablets every 6 hours as needed for pain TRAMADOL HCL 00132784641 Active Simon Castillo MD Active PREDNISONE 5 MG TAB Take one po qod PREDNISONE 79904534090 No Longer Active Simon Castillo MD Active GLYBURIDE 5 MG TAB Take one by mouth daily GLYBURIDE 28989739125 No Longer Active Simon Castillo MD Active LEVAQUIN 750 MG TABS 1 po qod x 5 doses LEVOFLOXACIN 78850322289 No Longer Active Simon Castillo MD Active CETIRIZINE HCL 10 MG TABS 1 po qd as needed for allergies CETIRIZINE HCL 45270206494 No Longer Active Simon Castillo MD Active FISH OIL 1000 MG CPDR 1 pill by mouth twice daily for cholesterol OMEGA -3 FATTY ACIDS 90997268722 Active Simon Castillo MD Active BILBERRY CAPS 1 tab daily BILBERRY (VACCINIUM MYRTILLUS) CAPS 95770046397 Active Simon Castillo MD Active ATENOLOL 50 MG TABS Take one by mouth daily ATENOLOL 30850185019 No Longer Active Simon Castillo MD Active FLONASE 50 MCG/ACT SUSP 2 puffs in each nostril daily FLUTICASONE PROPIONATE 46072083428 No Longer Active Simon Castillo MD Active GLYBURIDE 5 MG TAB Take one by mouth daily GLYBURIDE 26938753080 No Longer Active Simon Castillo MD Active SYMBICORT 80-4.5 MCG/ACT AERO 2 puffs twice a day BUDESONIDE-FORMOTEROL FUMARATE 59118076262 No Longer Active Simon Castillo MD Active PREDNISONE 20 MG TAB 2 tabs daily for 4 days, 1 tab daily for 4 days, 1/2 tab daily for 4 days PREDNISONE 71769986448 No Longer Active Simon Castillo MD Active AMOXICILLIN 500 MG CAPS 2 po BID x 10 days AMOXICILLIN 11834200471 No Longer Active Simon Castillo MD Active METFORMIN HCL 1000 MG TABS 1 by mounth twice a day METFORMIN HCL 64371995531 Active Simon Castillo MD Active LUTEIN-ZEAXANTHIN 6-1 MG TABS Take 2 by mouth daily LUTEIN-ZEAXANTHIN 20806885887 Active Simon Castillo MD Active IBUPROFEN 800 MG TABS Take 1 tab every 6 hrs prn IBUPROFEN 63469454140 No Longer Active Simon Castillo MD Active LISINOPRIL-HYDROCHLOROTHIAZIDE 20-12.5 MG TABS 1 tab by mouth daily LISINOPRIL-HYDROCHLOROTHIAZIDE 40902425163 Active Simon Castillo MD Active GLYBURIDE 2.5 MG TABS Take one by mouth daily GLYBURIDE 56119429417 No Longer Active Simon Castillo MD Active LANCETS MISC 2 qd LANCETS 29795944985 Active Pamela Conde Active [employer] CONTOUR TEST STRP Use with testing twice daily GLUCOSE BLOOD 22465622080 Active Pamela Conde Active [employer]ACIA ASPIRIN 325 MG TABS Take one by mouth daily ASPIRIN 28487429907 Active Pamela Conde Active GLYBURIDE 2.5 MG TABS Take one by mouth daily GLYBURIDE 2.5 MG TABS 836887 GLYBURIDE Inactive PREDNISONE 20 MG TAB 2 tabs daily for 4 days, 1 tab daily for 4 days, 1/2 tab daily for 4 days PREDNISONE 20 MG TAB 930420 PREDNISONE Inactive SYMBICORT 80-4.5 MCG/ACT AERO 2 puffs twice a day SYMBICORT 80-4.5 MCG/ACT AERO BUDESONIDE-FORMOTEROL FUMARATE Inactive FLONASE 50 MCG/ACT SUSP 2 puffs in each nostril daily FLONASE 50 MCG/ACT SUSP 574422 FLUTICASONE PROPIONATE Inactive ATENOLOL 50 MG TABS Take one by mouth daily ATENOLOL 50 MG TABS 558912 ATENOLOL Inactive CETIRIZINE HCL 10 MG TABS 1 po qd as needed for allergies CETIRIZINE HCL 10 MG TABS 4373103 CETIRIZINE HCL Inactive LEVAQUIN 750 MG TABS 1 po qod x 5 doses LEVAQUIN 750 MG TABS 370036 LEVOFLOXACIN Inactive GLYBURIDE 5 MG TAB Take one by mouth daily GLYBURIDE 5 MG TAB 971344 GLYBURIDE Inactive PREDNISONE 5 MG TAB Take one po qod PREDNISONE 5 MG TAB 117800 PREDNISONE Inactive AMOXICILLIN 500 MG CAPS 2 po BID x 10 days AMOXICILLIN 500 MG CAPS 196659 AMOXICILLIN Inactive GLYBURIDE 5 MG TAB Take one by mouth daily GLYBURIDE 5 MG TAB 631691 GLYBURIDE Inactive Immunizations Vaccine Administration Date Value [...] E&M - 3141-9 212.38 [lb_av] Weight Measured Diagnostic Results Date Name Value Unit Range Description Lab Report: Basic Metabolic Panel - Chemistry sodium, serum 137 mmol/L 195-112 6509/06/26 potassium, serum 5.7 mmol/L 3.5-5.2 chloride, serum 104 mmol/L 98-107 carbon dioxide, venous blood 21.2 mmol/L 21.0-32.0 blood glucose 129 mg/dL 65-110 calcium, serum 9.0 mg/dL 8.5-10.1 urea nitrogen, blood 67 mg/dL 7-18 creatinine, serum 3.30 mg/dL 0.60-1.30 sodium, serum 140 mmol/L 642-008 4991/07/10 potassium, serum 5.3 mmol/L 3.5-5.2 chloride, serum 105 mmol/L 98-107 carbon dioxide, venous blood 25.5 mmol/L 21.0-32.0 blood glucose 119 mg/dL 65-110 calcium, serum 8.9 mg/dL 8.5-10.1 urea nitrogen, blood 44 mg/dL 7-18 creatinine, serum 2.50 mg/dL 0.60-1.30 Lab Report: CBC W/DIFF, Comp. Metabolic Panel - Chemistry sodium, serum 137 mmol/L 305-619 9978/06/18 potassium, serum 5.3 mmol/L 3.5-5.2 chloride, serum [...] count 236 10^3/MM^3 10*3/mm3 142-424 Lab Report: HGBA1C - Chemistry hemoglobin A1C, blood, as % of total hemoglobin 7.8 % 4.3-6.0 Lab Report: HGBA1C, Basic Metabolic Panel - Chemistry hemoglobin A1C, blood, as % of total hemoglobin 6.9 % 4.3-6.0 sodium, serum 137 mmol/L 220-500 0642/08/21 potassium, serum 5.3 mmol/L 3.5-5.2 chloride, serum 104 mmol/L 98-107 carbon dioxide, venous blood 20.4 mmol/L 21.0-32.0 blood glucose 173 mg/dL 65-110 calcium, serum 8.7 mg/dL 8.5-10.1 urea nitrogen, blood 46 mg/dL 7-18 creatinine, serum 2.60 mg/dL 0.60-1.30 Lab Report: HGBA1C, CBC W/DIFF, Comp. Metabolic Panel, Prostatic Specifi ... - Chemistry hemoglobin A1C, blood, as % of total hemoglobin 7.2 % 4.3-6.0 sodium, serum 137 mmol/L 457-818 0817/01/23 potassium, serum 5.2 mmol/L 3.5-5.2 chloride, serum [...] 11.6-14.8 platelet count 254 10^3/MM^3 10*3/mm3 142-424 Lab Report: UADIP W/MICRO, AUTO - Chemistry [...] 35 mg/dL LDL target level 100 mg/dL Office Visit: 6 month f/u 306 - Chemistry cholesterol, target level 200 mg/dL triglyceride, target level 200 mg/dL HDL cholesterol, serum, target level 35 mg/dL LDL target level 100 mg/dL Encounters Code Encounter Date Provider Facility CPT-05423 Level 4 Est. Patient 11:48:19 CDT Simon Castillo MD [facility] CPT-38182 Level 4 Est. Patient 08:59:29 CDT Simon Castillo MD [facility] CPT-45392 Level 4 Est. 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 Patient 11:50:30 CDT Simon Castillo MD [facility] CPT-18546 Level 4 Est. Patient 09:54:46 CDT Simon Castillo MD [facility] CPT-30676 Level 3 Est. Patient 11:10:14 CDT Simon Castillo MD [facility] CPT-50450 Level 4 Est. Patient 09:44:02 CDT Simon Castillo MD [facility] CPT-97054 Level 3 Est. Patient 09:27:48 CDT Simon Castillo MD [facility] CPT-49140 Level 3 Est. Patient 09:58:06 CHILD AND YOUTH PROGRAM ASSISTANT Simon Castillo MD [facility] CPT-46883 Level 3 Est. Patient 09:51:35 CDT Simon Castillo MD [facility] Procedures Code Procedure Name Date Entry Date Standard Description CPT-Cryo Cryotherapy 11:48:20 CDT CPT-74821 EKG Trac and Interp 09:21:58 CDT CPT-85707 Chest 2V Frontal and Lat 09:21:58 CDT CPT-Cryo Cryotherapy 10:54:51 CHILD AND YOUTH PROGRAM ASSISTANT CPT-57482 Administration 2+ single or combination vaccines inc oral 10:42:19 CDT CPT-07686 Administration single or combination vaccine inc oral 10 :42:19 CDT CPT-96699 Pneumovax 10:42:19 CDT CPT-11543 Influenza High Dose age 65+ 10:42:19 CDT CPT-95484 Administration single or combination vaccine inc oral 13 :18:54 CDT CPT-41209 Influenza High Dose age 65+ 13:18:54 CDT CPT-30135 Venipuncture Draw Fee 11:53:16 CDT CPT-26828 LS spine comp w obliq 11:03:13 CDT CPT-Cryo Cryotherapy 08:27:16 CHILD AND YOUTH PROGRAM ASSISTANT CPT-04501 Administration single or combination vaccine inc oral 10 :56:34 CDT CPT-05754 Influenza High Dose age 65+ 10:56:34 CDT
--- OUTSIDE RECORDS SUMMARY | 2018-03-31 19:31 | XMS REPORT | Clinical Summary ---
Author Author Admin, RAFFI Organization [facility] Address Unknown Phone Unavailable Allergies, Adverse Reactions, [...] Name NDC Status Provider Patient Instruction PREDNISONE 5 MG TABS 1 po qod PREDNISONE 25312802220 Active Simon Castillo MD Active TRAMADOL HCL 50 MG TABS 1-2 tablets every 6 hours as needed for pain TRAMADOL HCL 12941509533 Active Simon Castillo MD Active PREDNISONE 5 MG TAB Take one po qod PREDNISONE 49882585581 No Longer Active Simon Castillo MD Active GLYBURIDE 5 MG TAB Take one by mouth daily GLYBURIDE 47214604057 No Longer Active Simon Castillo MD Active LEVAQUIN 750 MG TABS 1 po qod x 5 doses LEVOFLOXACIN 21343624665 No Longer Active Simon Castillo MD Active CETIRIZINE HCL 10 MG TABS 1 po qd as needed for allergies CETIRIZINE HCL 37700442897 No Longer Active Simon Castillo MD Active FISH OIL 1000 MG CPDR 1 pill by mouth twice daily for cholesterol OMEGA -3 FATTY ACIDS 99143796969 Active Simon Castillo MD Active BILBERRY CAPS 1 tab daily BILBERRY (VACCINIUM MYRTILLUS) CAPS 57716666304 Active Simon Castillo MD Active ATENOLOL 50 MG TABS Take one by mouth daily ATENOLOL 56228301503 No Longer Active Simon Castillo MD Active FLONASE 50 MCG/ACT SUSP 2 puffs in each nostril daily FLUTICASONE PROPIONATE 51906313329 No Longer Active Simon Castillo MD Active GLYBURIDE 5 MG TAB Take one by mouth daily GLYBURIDE 04940237328 No Longer Active Simon Castillo MD Active SYMBICORT 80-4.5 MCG/ACT AERO 2 puffs twice a day BUDESONIDE-FORMOTEROL FUMARATE 93055327580 No Longer Active Simon Castillo MD Active PREDNISONE 20 MG TAB 2 tabs daily for 4 days, 1 tab daily for 4 days, 1/2 tab daily for 4 days PREDNISONE 57779661873 No Longer Active Simon Castillo MD Active AMOXICILLIN 500 MG CAPS 2 po BID x 10 days AMOXICILLIN 99469777330 No Longer Active Simon Castillo MD Active METFORMIN HCL 1000 MG TABS 1 by mounth twice a day METFORMIN HCL 51634696103 Active Simon Castillo MD Active LUTEIN-ZEAXANTHIN 6-1 MG TABS Take 2 by mouth daily LUTEIN-ZEAXANTHIN 46686115755 Active Simon Castillo MD Active IBUPROFEN 800 MG TABS Take 1 tab every 6 hrs prn IBUPROFEN 27497390532 No Longer Active Simon Castillo MD Active LISINOPRIL-HYDROCHLOROTHIAZIDE 20-12.5 MG TABS 1 tab by mouth daily LISINOPRIL-HYDROCHLOROTHIAZIDE 87269379726 Active Simon Castillo MD Active GLYBURIDE 2.5 MG TABS Take one by mouth daily GLYBURIDE 26833371062 No Longer Active Simon Castillo MD Active LANCETS MISC 2 qd LANCETS 46951595577 Active Pamela Conde Active ACACIA CONTOUR TEST STRP Use with testing twice daily GLUCOSE BLOOD 00924674115 Active Pamela Conde Active ACACIA ASPIRIN 325 MG TABS Take one by mouth daily ASPIRIN 95947756361 Active Pamela Conde Active GLYBURIDE 2.5 MG TABS Take one by mouth daily GLYBURIDE 2.5 MG TABS 993800 GLYBURIDE Inactive PREDNISONE 20 MG TAB 2 tabs daily for 4 days, 1 tab daily for 4 days, 1/2 tab daily for 4 days PREDNISONE 20 MG TAB 071908 PREDNISONE Inactive SYMBICORT 80-4.5 MCG/ACT AERO 2 puffs twice a day SYMBICORT 80-4.5 MCG/ACT AERO BUDESONIDE-FORMOTEROL FUMARATE Inactive FLONASE 50 MCG/ACT SUSP 2 puffs in each nostril daily FLONASE 50 MCG/ACT SUSP 999753 FLUTICASONE PROPIONATE Inactive ATENOLOL 50 MG TABS Take one by mouth daily ATENOLOL 50 MG TABS 850622 ATENOLOL Inactive CETIRIZINE HCL 10 MG TABS 1 po qd as needed for allergies CETIRIZINE HCL 10 MG TABS 0127678 CETIRIZINE HCL Inactive LEVAQUIN 750 MG TABS 1 po qod x 5 doses LEVAQUIN 750 MG TABS 254565 LEVOFLOXACIN Inactive GLYBURIDE 5 MG TAB Take one by mouth daily GLYBURIDE 5 MG TAB 164727 GLYBURIDE Inactive PREDNISONE 5 MG TAB Take one po qod PREDNISONE 5 MG TAB 571164 PREDNISONE Inactive AMOXICILLIN 500 MG CAPS 2 po BID x 10 days AMOXICILLIN 500 MG CAPS 254825 AMOXICILLIN Inactive GLYBURIDE 5 MG TAB Take one by mouth daily GLYBURIDE 5 MG TAB 313863 GLYBURIDE Inactive Immunizations Vaccine Administration Date Value Standard Description pneumococcal immunization administered Pneumovax 23 [CVX33] pneumococcal polysaccharide vaccine, 23 valent Vital Signs Date Name Value Unit Range Description blood pressure, diastolic 75 mm[Hg] BP castillo blood pressure, systolic 132 mm[Hg] BP sys height E&M 66.5 [in_us] Bdy height pulse rate E&M 105 /min Heart rate temperature E&M 97.6 [degF] Body temperature weight E&M 203 [lb_av] Weight Measured blood pressure, diastolic 73 mm[Hg] BP castillo blood pressure, systolic 129 mm[Hg] BP sys pulse rate E&M 92 /min Heart rate temperature E&M 96.9 [degF] Body temperature weight E&M 203 [lb_av] Weight Measured blood pressure, diastolic, second observation 74 mm[Hg] BP castillo blood pressure, diastolic 81 mm[Hg] BP castillo blood pressure, systolic, second observation 150 mm[Hg] BP sys blood pressure, systolic 156 mm[Hg] BP sys height E&M 66.5 [in_us] Bdy height pulse rate E&M 80 /min Heart rate temperature E&M 97.0 [degF] Body temperature weight E&M 212.38 [lb_av] Weight Measured Diagnostic Results Date Name Value Unit Range Description Lab Report: Basic Metabolic Panel - Chemistry sodium, serum 137 mmol/L 971-419 3297/06/26 potassium, serum 5.7 mmol/L 3.5-5.2 chloride, serum 104 mmol/L 98-107 carbon dioxide, venous blood 21.2 mmol/L 21.0-32.0 blood glucose 129 mg/dL 65-110 calcium, serum 9.0 mg/dL 8.5-10.1 urea nitrogen, blood 67 mg/dL 7-18 creatinine, serum 3.30 mg/dL 0.60-1.30 sodium, serum 140 mmol/L 810-564 6182/07/10 potassium, serum 5.3 mmol/L 3.5-5.2 chloride, serum 105 mmol/L 98-107 carbon dioxide, venous blood 25.5 mmol/L 21.0-32.0 blood glucose 119 mg/dL 65-110 calcium, serum 8.9 mg/dL 8.5-10.1 urea nitrogen, blood 44 mg/dL 7-18 creatinine, serum 2.50 mg/dL 0.60-1.30 Lab Report: CBC W/DIFF, Comp. Metabolic Panel - Chemistry sodium, serum 137 mmol/L 822-308 2724/06/18 potassium, serum 5.3 mmol/L 3.5-5.2 chloride, serum [...] Panel - Chemistry sodium, serum 137 mmol/L 986-871 0468/10/14 potassium, serum 5.6 mmol/L 3.5-5.2 chloride, serum 103 mmol/L 98-107 carbon dioxide, venous blood 24.9 mmol/L 21.0-32.0 blood glucose 200 mg/dL 65-110 urea nitrogen, blood 43 mg/dL 7-18 creatinine, serum 2.60 mg/dL 0.60-1.30 calcium, serum 9.1 mg/dL 8.5-10.1 Lab Report: CBC, Renal Panel - Hematology leukocyte count, blood 9.2 10^3/MM^3 10*3/mm3 4.6-10.2 [...] count 214 10^3/MM^3 10*3/mm3 142-424 Lab Report: HGBA1C, Basic Metabolic Panel - Chemistry hemoglobin A1C, blood, as % of total hemoglobin 6.9 % 4.3-6.0 sodium, serum 137 mmol/L 861-074 9308/08/21 potassium, serum 5.3 mmol/L 3.5-5.2 chloride, serum [...] 7.2 % 4.3-6.0 sodium, serum 137 mmol/L 790-458 6713/01/23 potassium, serum 5.2 mmol/L 3.5-5.2 chloride, serum [...] count 254 10^3/MM^3 10*3/mm3 142-424 Lab Report: Renal Panel - Chemistry sodium, serum 139 mmol/L 807-182 9295/10/21 potassium, serum 4.7 mmol/L 3.5-5.2 chloride, serum 104 mmol/L 98-107 carbon dioxide, venous blood 26.1 mmol/L 21.0-32.0 blood glucose 148 mg/dL 65-110 urea nitrogen, blood 38 mg/dL 7-18 creatinine, serum 2.60 mg/dL 0.60-1.30 calcium, serum 8.6 mg/dL 8.5-10.1 Lab Report: UADIP W/MICRO, AUTO - Chemistry RBC, urine, dipstick Negative Negative protein, total urine random Negative mg/dL Negative Lab Report: UADIP W/MICRO, AUTO - Urinalysis glucose, urine, semiquantitative Negative Negative ketones, urine, by test strip Negative Negative bilirubin, urine Negative Negative urine color Yellow Colorless;Lightyellow;Straw;Yellow appearance, urine Clear Clear specific gravity, urine 1.010 1.000-1.030 pH, urine, semiquantitative 5.5 5.0-8.5 urobilinogen, urine, semiquantitative (dipstick) 0.2 Normal leukocyte esterase, urine, by dipstick Negative Negative nitrite, urine, semiquantitative Negative Negative Office Visit: 1 month F/U 302 - [...] mg/dL Encounters Code Encounter Date Provider Facility CPT-39394 Level 4 Est. Patient 11:48:19 CDT Simon Castillo MD [facility] CPT-55278 Level 4 Est. Patient 08:59:29 CDT Simon Castillo MD [facility] CPT-97456 Level 4 Est. Patient 10:52:51 SECURITY SUPPORT ANALYST Simon Castillo MD [facility] CPT-39075 Level 4 Est. Patient 11:50:30 CDT Simon Castillo MD [facility] CPT-46803 Level 4 Est. Patient 09:54:46 CDT Simon Castillo MD [facility] CPT-95809 Level 3 Est. Patient 11:10:14 CDT Simon Castillo MD [facility] CPT-08862 Level 4 Est. Patient 09:44:02 CDT Simon Castillo MD [facility] CPT-27782 Level 3 Est. Patient 09:27:48 CDT Simon Castillo MD [facility] CPT-33412 Level 3 Est. Patient 09:58:06 SECURITY SUPPORT ANALYST Simon Castillo MD [facility] CPT-96275 Level 3 Est. Patient 09:51:35 CDT Simon Castillo MD [facility] Procedures Code Procedure Name Date Entry Date Standard Description CPT-02601 Venipuncture Draw Fee 12:45:08 SECURITY SUPPORT ANALYST CPT-73435 Venipuncture Draw Fee 09:25:31 CDT CPT-G0008 Administration of Influenza Virus Vaccine 14:41:29 CDT CPT-57609 Fluzone High-Dose Intramuscular Suspension 14:41:29 CDT CPT-Cryo Cryotherapy 11:48:20 CDT CPT-80995 EKG Trac and Interp 09:21:58 CDT CPT-37517 Chest 2V Frontal and Lat 09:21:58 CDT CPT-Cryo Cryotherapy 10:54:51 SECURITY SUPPORT ANALYST CPT-53681 Administration 2+ single or combination vaccines inc oral 10:42:19 CDT CPT-68954 Administration single or combination vaccine inc oral 10 :42:19 CDT CPT-03443 Pneumovax 10:42:19 CDT CPT-35298 Influenza High Dose age 65+ 10:42:19 CDT CPT-92166 Administration single or combination vaccine inc oral 13 :18:54 CDT CPT-78544 Influenza High Dose age 65+ 13:18:54 CDT CPT-20001 Venipuncture Draw Fee 11:53:16 CDT CPT-06292 LS spine comp w obliq 11:03:13 CDT CPT-Cryo Cryotherapy 08:27:16 SECURITY SUPPORT ANALYST CPT-69136 Administration single or combination vaccine inc oral 10 :56:34 CDT CPT-68553 Influenza High Dose age 65+ 10:56:34 CDT
--- OUTSIDE RECORDS SUMMARY | 2018-03-31 19:32 | XMS REPORT | Clinical Summary ---
Author Author Admin, RAFFI Organization [facility] Address Unknown Phone Unavailable Allergies, Adverse [...] MD 2013 Chest pain ICD-786.50 Inactive Simon Csatillo MD Cough ICD-786.2 Inactive Simon Castillo MD Medication List Medication Instructions Start Date Stop Date Generic Name NDC Status Provider Patient Instruction CARVEDILOL 6.25 MG TABS 1 po BID CARVEDILOL 64182796091 Active Simon Castillo MD Active LISINOPRIL-HYDROCHLOROTHIAZIDE 20-12.5 MG TABS 1/2 tab by mouth daily LISINOPRIL-HYDROCHLOROTHIAZIDE 20308398176 Active Simon Castillo MD Active PREDNISONE 5 MG TABS 1 po qod PREDNISONE 59732645122 Active Simon Castillo MD Active TRAMADOL HCL 50 MG TABS 1-2 tablets every 6 hours as needed for pain TRAMADOL HCL 87644431158 Active Simon Castillo MD Active PREDNISONE 5 MG TAB Take one po qod PREDNISONE 77618137426 No Longer Active Simon Castillo MD Active GLYBURIDE 5 MG TAB Take one by mouth daily GLYBURIDE 78095167274 No Longer Active Smion Castillo MD Active LEVAQUIN 750 MG TABS 1 po qod x 5 doses LEVOFLOXACIN 74134161617 No Longer Active Simon Castillo MD Active CETIRIZINE HCL 10 MG TABS 1 po qd as needed for allergies CETIRIZINE HCL 71605429367 No Longer Active Simon Castillo MD Active FISH OIL 1000 MG CPDR 1 pill by mouth twice daily for cholesterol OMEGA -3 FATTY ACIDS 07438208580 Active Simon Castillo MD Active BILBERRY CAPS 1 tab daily BILBERRY (VACCINIUM MYRTILLUS) CAPS 91470203594 Active Simon Castillo MD Active ATENOLOL 50 MG TABS Take one by mouth daily ATENOLOL 63671860878 No Longer Active Simon Castillo MD Active FLONASE 50 MCG/ACT SUSP 2 puffs in each nostril daily FLUTICASONE PROPIONATE 42027626822 No Longer Active Simon Castillo MD Active GLYBURIDE 5 MG TAB Take one by mouth daily GLYBURIDE 90239587885 No Longer Active Simon Castillo MD Active SYMBICORT 80-4.5 MCG/ACT AERO 2 puffs twice a day BUDESONIDE-FORMOTEROL FUMARATE 24303156163 No Longer Active Simon Castillo MD Active PREDNISONE 20 MG TAB 2 tabs daily for 4 days, 1 tab daily for 4 days, 1/2 tab daily for 4 days PREDNISONE 06778991839 No Longer Active Simon Castillo MD Active AMOXICILLIN 500 MG CAPS 2 po BID x 10 days AMOXICILLIN 20050774944 No Longer Active Simon Castillo MD Active METFORMIN HCL 1000 MG TABS 1 by mounth twice a day METFORMIN HCL 17367454475 Active Simon Castillo MD Active LUTEIN-ZEAXANTHIN 6-1 MG TABS Take 2 by mouth daily LUTEIN-ZEAXANTHIN 78146828838 Active Simon Castillo MD Active IBUPROFEN 800 MG TABS Take 1 tab every 6 hrs prn IBUPROFEN 69045277692 No Longer Active Simon Castillo MD Active GLYBURIDE 2.5 MG TABS Take one by mouth daily GLYBURIDE 07432328347 No Longer Active Simon Castillo MD Active LANCETS MISC 2 qd LANCETS 24027586146 Active Pamela Conde Active ACACIA CONTOUR TEST STRP Use with testing twice daily GLUCOSE BLOOD 12621234607 Active Pamela Conde Active ACACIA ASPIRIN 325 MG TABS Take one by mouth daily ASPIRIN 97792858703 Active Pamela Conde Active GLYBURIDE 2.5 MG TABS Take one by mouth daily GLYBURIDE 2.5 MG TABS 036190 GLYBURIDE Inactive PREDNISONE 20 MG TAB 2 tabs daily for 4 days, 1 tab daily for 4 days, 1/2 tab daily for 4 days PREDNISONE 20 MG TAB 875406 PREDNISONE Inactive SYMBICORT 80-4.5 MCG/ACT AERO 2 puffs twice a day SYMBICORT 80-4.5 MCG/ACT AERO BUDESONIDE-FORMOTEROL FUMARATE Inactive FLONASE 50 MCG/ACT SUSP 2 puffs in each nostril daily FLONASE 50 MCG/ACT SUSP 284060 FLUTICASONE PROPIONATE Inactive ATENOLOL 50 MG TABS Take one by mouth daily ATENOLOL 50 MG TABS 649194 ATENOLOL Inactive CETIRIZINE HCL 10 MG TABS 1 po qd as needed for allergies CETIRIZINE HCL 10 MG TABS 8125549 CETIRIZINE HCL Inactive LEVAQUIN 750 MG TABS 1 po qod x 5 doses LEVAQUIN 750 MG TABS 033330 LEVOFLOXACIN Inactive GLYBURIDE 5 MG TAB Take one by mouth daily GLYBURIDE 5 MG TAB 476672 GLYBURIDE Inactive PREDNISONE 5 MG TAB Take one po qod PREDNISONE 5 MG TAB 918715 PREDNISONE Inactive AMOXICILLIN 500 MG CAPS 2 po BID x 10 days AMOXICILLIN 500 MG CAPS 894391 AMOXICILLIN Inactive GLYBURIDE 5 MG TAB Take one by mouth daily GLYBURIDE 5 MG TAB 268300 GLYBURIDE Inactive Immunizations Vaccine Administration Date Value Standard Description pneumococcal immunization administered Pneumovax 23 [CVX33] pneumococcal polysaccharide vaccine, 23 valent Vital Signs Date Name Value Unit Range Description blood pressure, diastolic 92 mm[Hg] BP castillo blood pressure, systolic 167 mm[Hg] BP sys pulse rate E&M 99 /min Heart rate temperature E&M 98.0 [degF] Body temperature weight E&M 202.6 [lb_av] Weight Measured blood pressure, diastolic 75 [...] Panel - Chemistry sodium, serum 137 mmol/L 238-582 8579/06/26 potassium, serum 5.7 mmol/L 3.5-5.2 chloride, serum 104 mmol/L 98-107 carbon dioxide, venous blood 21.2 mmol/L 21.0-32.0 blood glucose 129 mg/dL 65-110 calcium, serum 9.0 mg/dL 8.5-10.1 urea nitrogen, blood 67 mg/dL 7-18 creatinine, serum 3.30 mg/dL 0.60-1.30 sodium, serum 140 mmol/L 995-481 1523/07/10 potassium, serum 5.3 mmol/L 3.5-5.2 chloride, serum 105 mmol/L 98-107 carbon dioxide, venous blood 25.5 mmol/L 21.0-32.0 blood glucose 119 mg/dL 65-110 calcium, serum 8.9 mg/dL 8.5-10.1 urea nitrogen, blood 44 mg/dL 7-18 creatinine, serum 2.50 mg/dL 0.60-1.30 Lab Report: CBC W/DIFF, Comp. Metabolic Panel - Chemistry sodium, serum 137 mmol/L 857-035 1150/06/18 potassium, serum 5.3 mmol/L 3.5-5.2 chloride, serum [...] Panel - Chemistry sodium, serum 137 mmol/L 182-032 1449/10/14 potassium, serum 5.6 mmol/L 3.5-5.2 chloride, serum 103 mmol/L 98-107 carbon dioxide, venous blood 24.9 mmol/L 21.0-32.0 blood glucose 200 mg/dL 65-110 urea nitrogen, blood 43 mg/dL 7-18 creatinine, serum 2.60 mg/dL 0.60-1.30 calcium, serum 9.1 mg/dL 8.5-10.1 Lab Report: CBC, Renal Panel - Hematology mean corpuscular hemoglobin, RBC 29.7 pg 27.0-31.2 mean corpuscular hemoglobin concentration, RBC 32.8 G/DL % 31.8- 35.4 red blood cell distribution width 14.7 % 11.6-14.8 platelet count 214 10^3/MM^3 10*3/mm3 176-932 7032/10/14 mean corpuscular volume, RBC 91 fL 80-97 hematocrit, blood 42.4 % 41.0-53.0 hemoglobin, blood 13.9 g/dL 13.5-17.5 erythrocyte (RBC) count 4.67 10^6/MM^3 10*6/mm3 4.69-6.13 leukocyte count, blood 9.2 10^3/MM^3 10*3/mm3 4.6-10.2 Lab Report: HGBA1C, Basic Metabolic Panel - Chemistry hemoglobin A1C, blood, as % of total hemoglobin 6.9 % 4.3-6.0 sodium, serum 137 mmol/L 637-739 3720/08/21 potassium, serum 5.3 mmol/L 3.5-5.2 chloride, serum [...] 7.2 % 4.3-6.0 sodium, serum 137 mmol/L 875-181 8079/01/23 potassium, serum 5.2 mmol/L 3.5-5.2 chloride, serum [...] Panel - Chemistry sodium, serum 139 mmol/L 650-629 6661/10/21 potassium, serum 4.7 mmol/L 3.5-5.2 chloride, serum [...] mg/dL Encounters Code Encounter Date Provider Facility CPT-78435 Level 4 Est. Patient 10:10:09 PAPER COLORER Simon Castillo MD [facility] CPT-14687 Level 4 Est. Patient 11:48:19 CDT Simon Castillo MD [facility] CPT-81231 Level 4 Est. Patient 08:59:29 CDT Simon Castillo MD [facility] CPT-67321 Level 4 Est. Patient 10:52:51 PAPER COLORER Simon Castlilo MD [facility] CPT-48266 Level 4 Est. Patient 11:50:30 CDT Simon Castillo MD [facility] CPT-86022 Level 4 Est. Patient 09:54:46 CDT Simon Castillo MD [facility] CPT-69866 Level 3 Est. Patient 11:10:14 CDT Simon Castillo MD [facility] CPT-82337 Level 4 Est. Patient 09:44:02 CDT Simon Castillo MD [facility] CPT-29841 Level 3 Est. Patient 09:27:48 CDT Simon Castillo MD [facility] CPT-96122 Level 3 Est. Patient 09:58:06 PAPER COLORER Simon Castillo MD [facility] CPT-30979 Level 3 Est. Patient 09:51:35 CDT Simon Castilol MD [facility] Procedures Code Procedure Name Date Entry Date Standard Description CPT-62162 Venipuncture Draw Fee 12:45:08 PAPER COLORER CPT-59401 Venipuncture Draw Fee 09:25:31 CDT CPT-G0008 Administration of Influenza Virus Vaccine 14:41:29 CDT CPT-34556 Fluzone High-Dose Intramuscular Suspension 14:41:29 CDT CPT-Cryo Cryotherapy 11:48:20 CDT CPT-17701 EKG Trac and Interp 09:21:58 CDT CPT-17799 Chest 2V Frontal and Lat 09:21:58 CDT CPT-Cryo Cryotherapy 10:54:51 PAPER COLORER CPT-36594 Administration 2+ single or combination vaccines inc oral 10:42:19 CDT CPT-74460 Administration single or combination vaccine inc oral 10 :42:19 CDT CPT-19477 Pneumovax 10:42:19 CDT CPT-95520 Influenza High Dose age 65+ 10:42:19 CDT CPT-72418 Administration single or combination vaccine inc oral 13 :18:54 CDT CPT-66325 Influenza High Dose age 65+ 13:18:54 CDT CPT-45542 Venipuncture Draw Fee 11:53:16 CDT CPT-57639 LS spine comp w obliq 11:03:13 CDT CPT-Cryo Cryotherapy 08:27:16 PAPER COLORER CPT-41419 Administration single or combination vaccine inc oral 10 :56:34 CDT CPT-09991 Influenza High Dose age 65+ 10:56:34 CDT
--- OUTSIDE RECORDS SUMMARY | 2018-03-31 19:32 | XMS REPORT | Clinical Summary ---
Author Author Admin, RAFFI Organization [facility] Address Unknown Phone Allergies, Adverse Reactions, Alerts [...] Simon Castillo MD BRONCHITIS, ACUTE ICD-466.0 Inactive Smion aCstillo MD SINUSITIS, ACUTE ICD-461.9 Inactive Simon Castillo MD ABDOMINAL PAIN RIGHT LOWER QUADRANT ICD-789.03 Inactive Simon Castillo MD SCIATICA ICD-724.3 Inactive Simon Castillo MD 2012 BENIGN PROSTATIC HYPERTROPHY, MILD, HX OF ICD-V13.89 Inactive Simon Castillo MD Medication List Medication Instructions Start Date Stop Date Generic Name NDC Status Provider Patient Instruction LEVAQUIN 750 MG TABS 1 po qod x 5 doses LEVOFLOXACIN 80471062425 Active Simon Castillo MD Active CETIRIZINE HCL 10 MG TABS 1 po qd as needed for allergies CETIRIZINE HCL 85903900605 No Longer Active Simon Castillo MD Active FISH OIL 1000 MG CPDR 1 pill by mouth twice daily for cholesterol OMEGA -3 FATTY ACIDS 52846554000 Active Simon Castillo MD Active BILBERRY CAPS 1 tab daily BILBERRY (VACCINIUM MYRTILLUS) CAPS 38143422538 Active Simon Castillo MD Active PREDNISONE 5 MG TAB Take one po qod PREDNISONE 20846563626 Active Simon Castillo MD Active ATENOLOL 50 MG TABS Take one by mouth daily ATENOLOL 62385189833 No Longer Active Simon Castillo MD Active GLYBURIDE 5 MG TAB Take one by mouth daily GLYBURIDE 41506966953 Active Jami Dickey Active FLONASE 50 MCG/ACT SUSP 2 puffs in each nostril daily FLUTICASONE PROPIONATE 90456100036 No Longer Active Simon Castillo MD Active GLYBURIDE 5 MG TAB Take one by mouth daily GLYBURIDE 33325405283 No Longer Active Simon Castillo MD Active SYMBICORT 80-4.5 MCG/ACT AERO 2 puffs twice a day BUDESONIDE-FORMOTEROL FUMARATE 77602327844 No Longer Active Simon Castillo MD Active PREDNISONE 20 MG TAB 2 tabs daily for 4 days, 1 tab daily for 4 days, 1/2 tab daily for 4 days PREDNISONE 47920291403 No Longer Active Simon Castillo MD Active AMOXICILLIN 500 MG CAPS 2 po BID x 10 days AMOXICILLIN 16373095419 No Longer Active Simon Castillo MD Active METFORMIN HCL 1000 MG TABS 1 by mount twice a day METFORMIN HCL 96874313361 Active Simon Castillo MD Active LUTEIN-ZEAXANTHIN 6-1 MG TABS Take 2 by mouth daily LUTEIN-ZEAXANTHIN 33915038154 Active Simon Castillo MD Active IBUPROFEN 800 MG TABS Take 1 tab every 6 hrs prn IBUPROFEN 20643993186 Active Simon Castillo MD Active LISINOPRIL-HYDROCHLOROTHIAZIDE 20-12.5 MG TABS 1 tab by mouth daily LISINOPRIL-HYDROCHLOROTHIAZIDE 23519749010 Active Simon Castillo MD Active GLYBURIDE 2.5 MG TABS Take one by mouth daily GLYBURIDE 32628170833 No Longer Active Simon Castillo MD Active LANCETS MISC 2 qd LANCETS 29450119747 Active Pamela Conde Active iPrint CONTOUR TEST STRP Use with testing twice daily GLUCOSE BLOOD 92361018383 Active Pamela Conde Active ACACIA ASPIRIN 325 MG TABS Take one by mouth daily ASPIRIN 99693503849 Active Pamela Conde Active GLYBURIDE 2.5 MG TABS Take one by mouth daily GLYBURIDE 2.5 MG TABS 639369 GLYBURIDE Inactive PREDNISONE 20 MG TAB 2 tabs daily for 4 days, 1 tab daily for 4 days, 1/2 tab daily for 4 days PREDNISONE 20 MG TAB 960791 PREDNISONE Inactive SYMBICORT 80-4.5 MCG/ACT AERO 2 puffs twice a day SYMBICORT 80-4.5 MCG/ACT AERO BUDESONIDE-FORMOTEROL FUMARATE Inactive FLONASE 50 MCG/ACT SUSP 2 puffs in each nostril daily FLONASE 50 MCG/ACT SUSP 577826 FLUTICASONE PROPIONATE Inactive ATENOLOL 50 MG TABS Take one by mouth daily ATENOLOL 50 MG TABS 991968 ATENOLOL Inactive CETIRIZINE HCL 10 MG TABS 1 po qd as needed for allergies CETIRIZINE HCL 10 MG TABS 6516503 CETIRIZINE HCL Inactive AMOXICILLIN 500 MG CAPS 2 po BID x 10 days AMOXICILLIN 500 MG CAPS 239806 AMOXICILLIN Inactive GLYBURIDE 5 MG TAB Take one by mouth daily GLYBURIDE 5 MG TAB 949930 GLYBURIDE Inactive Immunizations Vaccine Administration Date Value [...] Panel - Chemistry sodium, serum 137 mmol/L 673-022 7130/06/18 potassium, serum 5.3 mmol/L 3.5-5.2 chloride, serum [...] (AUTO) - Chemistry sodium, serum 141 mmol/L 459-989 4864/07/29 potassium, serum 5.7 mmol/L 3.5-5.2 chloride, serum [...] 7.2 % 4.3-6.0 sodium, serum 137 mmol/L 162-048 4943/01/23 potassium, serum 5.2 mmol/L 3.5-5.2 chloride, serum [...] mg/dL Encounters Code Encounter Date Provider Facility CPT-38909 Level 4 Est. Patient 08:59:29 CDT Simon Castillo MD [facility] CPT-41776 Level 4 Est. Patient 10:52:51 ETCHER HAND Simon Castillo MD [facility] CPT-49374 Level 4 Est. Patient 11:50:30 CDT Simon Castillo MD [facility] CPT-74070 Level 4 Est. Patient 09:54:46 CDT Simon Castillo MD [facility] CPT-79281 Level 3 Est. Patient 11:10:14 CDT Simon Castillo MD [facility] CPT-56461 Level 4 Est. Patient 09:44:02 CDT Simon Castillo MD [facility] CPT-47714 Level 3 Est. Patient 09:27:48 CDT Simon Castillo MD [facility] CPT-11857 Level 3 Est. Patient 09:58:06 ETCHER HAND Simon Castillo MD [facility] CPT-19677 Level 3 Est. Patient 09:51:35 CDT Simon Castillo MD [facility] Procedures Code Procedure Name Date Entry Date Standard Description CPT-10728 EKG Trac and Interp 09:21:58 CDT CPT-11048 Chest 2V Frontal and Lat 09:21:58 CDT CPT-Cryo Cryotherapy 10:54:51 ETCHER HAND CPT-62581 Administration 2+ single or combination vaccines inc oral 10:42:19 CDT CPT-05375 Administration single or combination vaccine inc oral 10 :42:19 CDT CPT-00072 Pneumovax 10:42:19 CDT CPT-95518 Influenza High Dose age 65+ 10:42:19 CDT CPT-83574 Administration single or combination vaccine inc oral 13 :18:54 CDT CPT-09043 Influenza High Dose age 65+ 13:18:54 CDT CPT-97737 Venipuncture Draw Fee 11:53:16 CDT CPT-04827 LS spine comp w obliq 11:03:13 CDT CPT-Cryo Cryotherapy 08:27:16 ETCHER HAND CPT-44992 Administration single or combination vaccine inc oral 10 :56:34 CDT CPT-70774 Influenza High Dose age 65+ 10:56:34 CDT
--- OUTSIDE RECORDS SUMMARY | 2018-03-31 19:33 | XMS REPORT | Clinical Summary ---
Author Author Admin, RAFFI Organization [facility] Address Unknown Phone Unavailable Allergies, Adverse Reactions, [...] MD FH LUNG CANCER ICD-V16.1 Inactive Simon Catsillo MD ABDOMINAL TENDERNESS ICD-789.60 Inactive Simon Castillo [...] MG TABS 1 po q a.m. GLIMEPIRIDE 15844022199 Active Simon Castillo MD Active CARVEDILOL 6.25 MG TABS 1 po BID CARVEDILOL 69852074547 Active Simon Castillo MD Active LISINOPRIL-HYDROCHLOROTHIAZIDE 20-12.5 MG TABS 1/2 tab by mouth daily LISINOPRIL-HYDROCHLOROTHIAZIDE 18914536730 Active Simon Castillo MD Active PREDNISONE 5 MG TABS 1 po qod PREDNISONE 05976231191 Active Simon Castillo MD Active TRAMADOL HCL 50 MG TABS 1-2 tablets every 6 hours as needed for pain TRAMADOL HCL 56906108330 Active Simon Castillo MD Active PREDNISONE 5 MG TAB Take one po qod PREDNISONE 55333449286 No Longer Active Simon Castillo MD Active GLYBURIDE 5 MG TAB Take one by mouth daily GLYBURIDE 41315723278 No Longer Active Simon Castillo MD Active LEVAQUIN 750 MG TABS 1 po qod x 5 doses LEVOFLOXACIN 34093738245 No Longer Active Simon Castillo MD Active CETIRIZINE HCL 10 MG TABS 1 po qd as needed for allergies CETIRIZINE HCL 48259434845 No Longer Active Simon Castillo MD Active FISH OIL 1000 MG CPDR 1 pill by mouth twice daily for cholesterol OMEGA -3 FATTY ACIDS 83088140070 Active Simon Castillo MD Active BILBERRY CAPS 1 tab daily BILBERRY (VACCINIUM MYRTILLUS) CAPS 03417289979 Active Simon Castillo MD Active ATENOLOL 50 MG TABS Take one by mouth daily ATENOLOL 89823764790 No Longer Active Simon Castillo MD Active FLONASE 50 MCG/ACT SUSP 2 puffs in each nostril daily FLUTICASONE PROPIONATE 34312728601 No Longer Active Simon Castillo MD Active GLYBURIDE 5 MG TAB Take one by mouth daily GLYBURIDE 50627442136 No Longer Active Simon Castillo MD Active SYMBICORT 80-4.5 MCG/ACT AERO 2 puffs twice a day BUDESONIDE-FORMOTEROL FUMARATE 09913751927 No Longer Active Simon Castillo MD Active PREDNISONE 20 MG TAB 2 tabs daily for 4 days, 1 tab daily for 4 days, 1/2 tab daily for 4 days PREDNISONE 46752768291 No Longer Active Simon Castillo MD Active AMOXICILLIN 500 MG CAPS 2 po BID x 10 days AMOXICILLIN 46138589004 No Longer Active Simon Castillo MD Active METFORMIN HCL 1000 MG TABS 1 by mounth twice a day METFORMIN HCL 07547489440 No Longer Active Simon Castillo MD Active LUTEIN-ZEAXANTHIN 6-1 MG TABS Take 2 by mouth daily LUTEIN-ZEAXANTHIN 07702594955 Active Simon Castillo MD Active IBUPROFEN 800 MG TABS Take 1 tab every 6 hrs prn IBUPROFEN 45398957554 No Longer Active Simon Castillo MD Active GLYBURIDE 2.5 MG TABS Take one by mouth daily GLYBURIDE 95494715834 No Longer Active Simon Castillo MD Active LANCETS MISC 2 qd LANCETS 04923743928 Active Pamela Conde Active ACACIA CONTOUR TEST STRP Use with testing twice daily GLUCOSE BLOOD 86327949518 Active Pamela Conde Active ACACIA ASPIRIN 325 MG TABS Take one by mouth daily ASPIRIN 40039875685 Active Pamela Conde Active GLYBURIDE 2.5 MG TABS Take one by mouth daily GLYBURIDE 2.5 MG TABS 919457 GLYBURIDE Inactive PREDNISONE 20 MG TAB 2 tabs daily for 4 days, 1 tab daily for 4 days, 1/2 tab daily for 4 days PREDNISONE 20 MG TAB 405078 PREDNISONE Inactive SYMBICORT 80-4.5 MCG/ACT AERO 2 puffs twice a day SYMBICORT 80-4.5 MCG/ACT AERO BUDESONIDE-FORMOTEROL FUMARATE Inactive FLONASE 50 MCG/ACT SUSP 2 puffs in each nostril daily FLONASE 50 MCG/ACT SUSP 667210 FLUTICASONE PROPIONATE Inactive ATENOLOL 50 MG TABS Take one by mouth daily ATENOLOL 50 MG TABS 426527 ATENOLOL Inactive CETIRIZINE HCL 10 MG TABS 1 po qd as needed for allergies CETIRIZINE HCL 10 MG TABS 2406662 CETIRIZINE HCL Inactive LEVAQUIN 750 MG TABS 1 po qod x 5 doses LEVAQUIN 750 MG TABS 207027 LEVOFLOXACIN Inactive GLYBURIDE 5 MG TAB Take one by mouth daily GLYBURIDE 5 MG TAB 394559 GLYBURIDE Inactive PREDNISONE 5 MG TAB Take one po qod PREDNISONE 5 MG TAB 398914 PREDNISONE Inactive AMOXICILLIN 500 MG CAPS 2 po BID x 10 days AMOXICILLIN 500 MG CAPS 044864 AMOXICILLIN Inactive GLYBURIDE 5 MG TAB Take one by mouth daily GLYBURIDE 5 MG TAB 284684 GLYBURIDE Inactive Immunizations Vaccine Administration Date Value [...] Panel - Chemistry sodium, serum 137 mmol/L 448-505 3949/06/26 potassium, serum 5.7 mmol/L 3.5-5.2 chloride, serum 104 mmol/L 98-107 carbon dioxide, venous blood 21.2 mmol/L 21.0-32.0 blood glucose 129 mg/dL 65-110 calcium, serum 9.0 mg/dL 8.5-10.1 urea nitrogen, blood 67 mg/dL 7-18 creatinine, serum 3.30 mg/dL 0.60-1.30 sodium, serum 140 mmol/L 382-682 6630/07/10 potassium, serum 5.3 mmol/L 3.5-5.2 chloride, serum 105 mmol/L 98-107 carbon dioxide, venous blood 25.5 mmol/L 21.0-32.0 blood glucose 119 mg/dL 65-110 calcium, serum 8.9 mg/dL 8.5-10.1 urea nitrogen, blood 44 mg/dL 7-18 creatinine, serum 2.50 mg/dL 0.60-1.30 Lab Report: CBC W/DIFF, Comp. Metabolic Panel - Chemistry sodium, serum 137 mmol/L 417-776 6927/06/18 potassium, serum 5.3 mmol/L 3.5-5.2 chloride, serum [...] Panel - Chemistry sodium, serum 137 mmol/L 206-690 4822/10/14 potassium, serum 5.6 mmol/L 3.5-5.2 chloride, serum 103 mmol/L 98-107 carbon dioxide, venous blood 24.9 mmol/L 21.0-32.0 blood glucose 200 mg/dL 65-110 urea nitrogen, blood 43 mg/dL 7-18 creatinine, serum 2.60 mg/dL 0.60-1.30 calcium, serum 9.1 mg/dL 8.5-10.1 sodium, serum 139 mmol/L 448-962 0349/11/13 potassium, serum 5.8 mmol/L 3.5-5.2 chloride, serum 105 mmol/L 98-107 carbon dioxide, venous blood 22.2 mmol/L 21.0-32.0 blood glucose 156 mg/dL 65-110 urea nitrogen, blood 49 mg/dL 7-18 creatinine, serum 2.30 mg/dL 0.60-1.30 calcium, serum 9.2 mg/dL 8.5-10.1 Lab Report: CBC, Renal Panel - Hematology mean corpuscular volume, RBC 91 fL 80-97 hematocrit, blood 42.4 % 41.0-53.0 hemoglobin, blood 13.9 g/dL 13.5-17.5 erythrocyte (RBC) count 4.67 10^6/MM^3 10*6/mm3 4.69-6.13 leukocyte count, blood 9.2 10^3/MM^3 10*3/mm3 4.6-10.2 mean corpuscular hemoglobin, RBC 29.7 pg 27.0-31.2 mean corpuscular hemoglobin concentration, RBC 32.8 G/DL % 31.8- 35.4 red blood cell distribution width 14.7 % 11.6-14.8 platelet count 214 10^3/MM^3 10*3/mm3 198-841 9166/11/13 leukocyte count, blood 9.7 10^3/MM^3 10*3/mm3 4.6-10.2 [...] count 241 10^3/MM^3 10*3/mm3 142-424 Lab Report: HGBA1C, Basic Metabolic Panel - Chemistry hemoglobin A1C, blood, as % of total hemoglobin 6.9 % 4.3-6.0 sodium, serum 137 mmol/L 583-580 6498/08/21 potassium, serum 5.3 mmol/L 3.5-5.2 chloride, serum [...] 7.2 % 4.3-6.0 sodium, serum 137 mmol/L 100-383 1515/01/23 potassium, serum 5.2 mmol/L 3.5-5.2 chloride, serum [...] Panel - Chemistry sodium, serum 139 mmol/L 239-998 7118/10/21 potassium, serum 4.7 mmol/L 3.5-5.2 chloride, serum 104 mmol/L 98-107 carbon dioxide, venous blood 26.1 mmol/L 21.0-32.0 blood glucose 148 mg/dL 65-110 urea nitrogen, blood 38 mg/dL 7-18 creatinine, serum 2.60 mg/dL 0.60-1.30 calcium, serum 8.6 mg/dL 8.5-10.1 sodium, serum 140 mmol/L 930-379 9224/11/17 potassium, serum 5.0 mmol/L 3.5-5.2 chloride, serum [...] mg/dL Encounters Code Encounter Date Provider Facility CPT-39814 Level 4 Est. Patient 10:10:09 TECHNICAL STAFF ASSISTANT Simon Castillo MD [facility] CPT-07079 Level 4 Est. Patient 11:48:19 CDT Simon Castillo MD [facility] CPT-30679 Level 4 Est. Patient 08:59:29 CDT Simon Castillo MD [facility] CPT-50287 Level 4 Est. Patient 10:52:51 TECHNICAL STAFF ASSISTANT Simon Castillo MD [facility] CPT-54731 Level 4 Est. Patient 11:50:30 CDT Simon Castillo MD [facility] CPT-74367 Level 4 Est. Patient 09:54:46 CDT Simon Castillo MD [facility] CPT-74312 Level 3 Est. Patient 11:10:14 CDT Simon Castillo MD [facility] CPT-26515 Level 4 Est. Patient 09:44:02 CDT Simon Castillo MD [facility] CPT-92477 Level 3 Est. Patient 09:27:48 CDT Simon Castillo MD [facility] CPT-05383 Level 3 Est. Patient 09:58:06 TECHNICAL STAFF ASSISTANT Simon Castillo MD [facility] CPT-92849 Level 3 Est. Patient 09:51:35 CDT Simon Castillo MD [facility] Procedures Code Procedure Name Date Entry Date Standard Description CPT-63653 Venipuncture Draw Fee 09:02:51 TECHNICAL STAFF ASSISTANT CPT-57521 Venipuncture Draw Fee 12:45:08 TECHNICAL STAFF ASSISTANT CPT-53028 Venipuncture Draw Fee 09:25:31 CDT CPT-G0008 Administration of Influenza Virus Vaccine 14:41:29 CDT CPT-74826 Fluzone High-Dose Intramuscular Suspension 14:41:29 CDT CPT-Cryo Cryotherapy 11:48:20 CDT CPT-46587 EKG Trac and Interp 09:21:58 CDT CPT-19661 Chest 2V Frontal and Lat 09:21:58 CDT CPT-Cryo Cryotherapy 10:54:51 TECHNICAL STAFF ASSISTANT CPT-58622 Administration 2+ single or combination vaccines inc oral 10:42:19 CDT CPT-34170 Administration single or combination vaccine inc oral 10 :42:19 CDT CPT-16286 Pneumovax 10:42:19 CDT CPT-70925 Influenza High Dose age 65+ 10:42:19 CDT CPT-62321 Administration single or combination vaccine inc oral 13 :18:54 CDT CPT-82812 Influenza High Dose age 65+ 13:18:54 CDT CPT-56470 Venipuncture Draw Fee 11:53:16 CDT CPT-07359 LS spine comp w obliq 11:03:13 CDT CPT-Cryo Cryotherapy 08:27:16 TECHNICAL STAFF ASSISTANT CPT-73013 Administration single or combination vaccine inc oral 10 :56:34 CDT CPT-94796 Influenza High Dose age 65+ 10:56:34 CDT
--- OUTSIDE RECORDS SUMMARY | 2018-03-31 19:34 | XMS REPORT | Clinical Summary ---
Author Author Admin, RAFFI Organization [facility] Address Unknown Phone Unavailable Allergies, [...] 5 MG TABS 1 po qod PREDNISONE 23342886997 Active Simon Castillo MD Active TRAMADOL HCL 50 MG TABS 1-2 tablets every 6 hours as needed for pain TRAMADOL HCL 90654454795 Active Simon Castillo MD Active PREDNISONE 5 MG TAB Take one po qod PREDNISONE 03785954811 No Longer Active Simon Castillo MD Active GLYBURIDE 5 MG TAB Take one by mouth daily GLYBURIDE 48574989373 No Longer Active Simon Castillo MD Active LEVAQUIN 750 MG TABS 1 po qod x 5 doses LEVOFLOXACIN 03456353402 No Longer Active Simon Castillo MD Active CETIRIZINE HCL 10 MG TABS 1 po qd as needed for allergies CETIRIZINE HCL 70527458665 No Longer Active Simon Castillo MD Active FISH OIL 1000 MG CPDR 1 pill by mouth twice daily for cholesterol OMEGA -3 FATTY ACIDS 36044942701 Active Simon Castillo MD Active BILBERRY CAPS 1 tab daily BILBERRY (VACCINIUM MYRTILLUS) CAPS 47036293371 Active Simon Castillo MD Active ATENOLOL 50 MG TABS Take one by mouth daily ATENOLOL 61363132065 No Longer Active Simon Castillo MD Active FLONASE 50 MCG/ACT SUSP 2 puffs in each nostril daily FLUTICASONE PROPIONATE 62035607369 No Longer Active Simon Castillo MD Active GLYBURIDE 5 MG TAB Take one by mouth daily GLYBURIDE 98876167045 No Longer Active Simon Castillo MD Active SYMBICORT 80-4.5 MCG/ACT AERO 2 puffs twice a day BUDESONIDE-FORMOTEROL FUMARATE 49385720870 No Longer Active Simon Castillo MD Active PREDNISONE 20 MG TAB 2 tabs daily for 4 days, 1 tab daily for 4 days, 1/2 tab daily for 4 days PREDNISONE 60330427584 No Longer Active Simon Castillo MD Active AMOXICILLIN 500 MG CAPS 2 po BID x 10 days AMOXICILLIN 11081079142 No Longer Active Simon Castillo MD Active METFORMIN HCL 1000 MG TABS 1 by mounth twice a day METFORMIN HCL 69745884928 Active Simon Castillo MD Active LUTEIN-ZEAXANTHIN 6-1 MG TABS Take 2 by mouth daily LUTEIN-ZEAXANTHIN 56875923781 Active Simon Castillo MD Active IBUPROFEN 800 MG TABS Take 1 tab every 6 hrs prn IBUPROFEN 34269736988 No Longer Active Simon Castillo MD Active LISINOPRIL-HYDROCHLOROTHIAZIDE 20-12.5 MG TABS 1 tab by mouth daily LISINOPRIL-HYDROCHLOROTHIAZIDE 28043265404 Active Simon Castillo MD Active GLYBURIDE 2.5 MG TABS Take one by mouth daily GLYBURIDE 54411915247 No Longer Active Simon Castillo MD Active LANCETS MISC 2 qd LANCETS 53519050515 Active Pamela Conde Active ACACIA CONTOUR TEST STRP Use with testing twice daily GLUCOSE BLOOD 01331446753 Active Pamela Conde Active ACACIA ASPIRIN 325 MG TABS Take one by mouth daily ASPIRIN 52758756834 Active Pamela Conde Active GLYBURIDE 2.5 MG TABS Take one by mouth daily GLYBURIDE 2.5 MG TABS 567959 GLYBURIDE Inactive PREDNISONE 20 MG TAB 2 tabs daily for 4 days, 1 tab daily for 4 days, 1/2 tab daily for 4 days PREDNISONE 20 MG TAB 773428 PREDNISONE Inactive SYMBICORT 80-4.5 MCG/ACT AERO 2 puffs twice a day SYMBICORT 80-4.5 MCG/ACT AERO BUDESONIDE-FORMOTEROL FUMARATE Inactive FLONASE 50 MCG/ACT SUSP 2 puffs in each nostril daily FLONASE 50 MCG/ACT SUSP 483609 FLUTICASONE PROPIONATE Inactive ATENOLOL 50 MG TABS Take one by mouth daily ATENOLOL 50 MG TABS 560601 ATENOLOL Inactive CETIRIZINE HCL 10 MG TABS 1 po qd as needed for allergies CETIRIZINE HCL 10 MG TABS 9581221 CETIRIZINE HCL Inactive LEVAQUIN 750 MG TABS 1 po qod x 5 doses LEVAQUIN 750 MG TABS 783510 LEVOFLOXACIN Inactive GLYBURIDE 5 MG TAB Take one by mouth daily GLYBURIDE 5 MG TAB 087881 GLYBURIDE Inactive PREDNISONE 5 MG TAB Take one po qod PREDNISONE 5 MG TAB 424171 PREDNISONE Inactive AMOXICILLIN 500 MG CAPS 2 po BID x 10 days AMOXICILLIN 500 MG CAPS 818821 AMOXICILLIN Inactive GLYBURIDE 5 MG TAB Take one by mouth daily GLYBURIDE 5 MG TAB 415427 GLYBURIDE Inactive Immunizations Vaccine Administration Date Value [...] pressure, diastolic, second observation 74 mm[Hg] BP acstillo blood pressure, diastolic 81 mm[Hg] BP castillo [...] Panel - Chemistry sodium, serum 137 mmol/L 497-406 1620/06/26 potassium, serum 5.7 mmol/L 3.5-5.2 chloride, serum 104 mmol/L 98-107 carbon dioxide, venous blood 21.2 mmol/L 21.0-32.0 blood glucose 129 mg/dL 65-110 calcium, serum 9.0 mg/dL 8.5-10.1 urea nitrogen, blood 67 mg/dL 7-18 creatinine, serum 3.30 mg/dL 0.60-1.30 sodium, serum 140 mmol/L 249-555 7768/07/10 potassium, serum 5.3 mmol/L 3.5-5.2 chloride, serum 105 mmol/L 98-107 carbon dioxide, venous blood 25.5 mmol/L 21.0-32.0 blood glucose 119 mg/dL 65-110 calcium, serum 8.9 mg/dL 8.5-10.1 urea nitrogen, blood 44 mg/dL 7-18 creatinine, serum 2.50 mg/dL 0.60-1.30 Lab Report: CBC W/DIFF, Comp. Metabolic Panel - Chemistry sodium, serum 137 mmol/L 456-004 7510/06/18 potassium, serum 5.3 mmol/L 3.5-5.2 chloride, serum [...] 6.9 % 4.3-6.0 sodium, serum 137 mmol/L 814-608 9879/08/21 potassium, serum 5.3 mmol/L 3.5-5.2 chloride, serum [...] 7.2 % 4.3-6.0 sodium, serum 137 mmol/L 514-288 1802/01/23 potassium, serum 5.2 mmol/L 3.5-5.2 chloride, serum [...] mg/dL Encounters Code Encounter Date Provider Facility CPT-75869 Level 4 Est. Patient 11:48:19 CDT Simon Castillo MD [facility] CPT-24191 Level 4 Est. Patient 08:59:29 CDT Simon Castillo MD [facility] CPT-64180 Level 4 Est. Patient 10:52:51 DESKTOP ARCHITECT Simon Castillo MD [facility] CPT-47393 Level 4 Est. Patient 11:50:30 CDT Simon Castillo MD [facility] CPT-99541 Level 4 Est. Patient 09:54:46 CDT Simon Castillo MD [facility] CPT-35317 Level 3 Est. Patient 11:10:14 CDT Simon Castillo MD [facility] CPT-11839 Level 4 Est. Patient 09:44:02 CDT Simon Castillo MD [facility] CPT-30069 Level 3 Est. Patient 09:27:48 CDT Simon Castillo MD [facility] CPT-24656 Level 3 Est. Patient 09:58:06 DESKTOP ARCHITECT Simon Castillo MD [facility] CPT-04547 Level 3 Est. Patient 09:51:35 CDT Simon Castillo MD [facility] Procedures Code Procedure Name Date Entry Date Standard Description CPT-G0008 Administration of Influenza Virus Vaccine 14:41:29 CDT CPT-18995 Fluzone High-Dose Intramuscular Suspension 14:41:29 CDT CPT-Cryo Cryotherapy 11:48:20 CDT CPT-58878 EKG Trac and Interp 09:21:58 CDT CPT-83480 Chest 2V Frontal and Lat 09:21:58 CDT CPT-Cryo Cryotherapy 10:54:51 DESKTOP ARCHITECT CPT-42477 Administration 2+ single or combination vaccines inc oral 10:42:19 CDT CPT-36088 Administration single or combination vaccine inc oral 10 :42:19 CDT CPT-62782 Pneumovax 10:42:19 CDT CPT-59188 Influenza High Dose age 65+ 10:42:19 CDT CPT-37434 Administration single or combination vaccine inc oral 13 :18:54 CDT CPT-98763 Influenza High Dose age 65+ 13:18:54 CDT CPT-76673 Venipuncture Draw Fee 11:53:16 CDT CPT-36450 LS spine comp w obliq 11:03:13 CDT CPT-Cryo Cryotherapy 08:27:16 DESKTOP ARCHITECT CPT-01996 Administration single or combination vaccine inc oral 10 :56:34 CDT CPT-03865 Influenza High Dose age 65+ 10:56:34 CDT
--- OUTSIDE RECORDS SUMMARY | 2018-03-31 19:35 | XMS REPORT | Clinical Summary ---
Author Author Admin, RAFIF Organization [facility] Address Unknown Phone Allergies, Adverse Reactions, Alerts [...] Unspecified essential hypertension FH DIABETES V18.0 Resolved iSmon Castillo MD Family history of diabetes mellitus [...] 1 po qod x 5 doses LEVOFLOXACIN 53626316570 Active Simon Castillo MD Active CETIRIZINE HCL 10 MG TABS 1 po qd as needed for allergies CETIRIZINE HCL 21681620745 No Longer Active Simon Castillo MD Active FISH OIL 1000 MG CPDR 1 pill by mouth twice daily for cholesterol OMEGA -3 FATTY ACIDS 05886475910 Active Simon Castillo MD Active BILBERRY CAPS 1 tab daily BILBERRY (VACCINIUM MYRTILLUS) CAPS 16557906037 Active Simon Castillo MD Active PREDNISONE 5 MG TAB Take one po qod PREDNISONE 34555497664 Active Simon Castillo MD Active ATENOLOL 50 MG TABS Take one by mouth daily ATENOLOL 62895686334 No Longer Active Simon Castillo MD Active GLYBURIDE 5 MG TAB Take one by mouth daily GLYBURIDE 83691796024 Active Jami Dickey Active FLONASE 50 MCG/ACT SUSP 2 puffs in each nostril daily FLUTICASONE PROPIONATE 15254774050 No Longer Active Simon Castillo MD Active GLYBURIDE 5 MG TAB Take one by mouth daily GLYBURIDE 07619572508 No Longer Active Simon Castillo MD Active SYMBICORT 80-4.5 MCG/ACT AERO 2 puffs twice a day BUDESONIDE-FORMOTEROL FUMARATE 66902795472 No Longer Active Simon Castillo MD Active PREDNISONE 20 MG TAB 2 tabs daily for 4 days, 1 tab daily for 4 days, 1/2 tab daily for 4 days PREDNISONE 42859911780 No Longer Active Simon Castillo MD Active AMOXICILLIN 500 MG CAPS 2 po BID x 10 days AMOXICILLIN 35729873182 No Longer Active Simon Castillo MD Active METFORMIN HCL 1000 MG TABS 1 by mount twice a day METFORMIN HCL 11160238615 Active Simon Castillo MD Active LUTEIN-ZEAXANTHIN 6-1 MG TABS Take 2 by mouth daily LUTEIN-ZEAXANTHIN 84937491974 Active Simon Castillo MD Active IBUPROFEN 800 MG TABS Take 1 tab every 6 hrs prn IBUPROFEN 52423651940 Active Simon Castillo MD Active LISINOPRIL-HYDROCHLOROTHIAZIDE 20-12.5 MG TABS 1 tab by mouth daily LISINOPRIL-HYDROCHLOROTHIAZIDE 22581182955 Active Simon Castillo MD Active GLYBURIDE 2.5 MG TABS Take one by mouth daily GLYBURIDE 65634351364 No Longer Active Simon Castillo MD Active LANCETS MISC 2 qd LANCETS 70168229584 Active Pamela Conde Active MD On-Line CONTOUR TEST STRP Use with testing twice daily GLUCOSE BLOOD 94186654241 Active Pamela Conde Active ACACIA ASPIRIN 325 MG TABS Take one by mouth daily ASPIRIN 05261508753 Active Pamela Conde Active GLYBURIDE 2.5 MG TABS Take one by mouth daily GLYBURIDE 2.5 MG TABS 016184 GLYBURIDE Inactive PREDNISONE 20 MG TAB 2 tabs daily for 4 days, 1 tab daily for 4 days, 1/2 tab daily for 4 days PREDNISONE 20 MG TAB 376282 PREDNISONE Inactive SYMBICORT 80-4.5 MCG/ACT AERO 2 puffs twice a day SYMBICORT 80-4.5 MCG/ACT AERO BUDESONIDE-FORMOTEROL FUMARATE Inactive FLONASE 50 MCG/ACT SUSP 2 puffs in each nostril daily FLONASE 50 MCG/ACT SUSP 155216 FLUTICASONE PROPIONATE Inactive ATENOLOL 50 MG TABS Take one by mouth daily ATENOLOL 50 MG TABS 428715 ATENOLOL Inactive CETIRIZINE HCL 10 MG TABS 1 po qd as needed for allergies CETIRIZINE HCL 10 MG TABS 0850767 CETIRIZINE HCL Inactive AMOXICILLIN 500 MG CAPS 2 po BID x 10 days AMOXICILLIN 500 MG CAPS 809970 AMOXICILLIN Inactive GLYBURIDE 5 MG TAB Take one by mouth daily GLYBURIDE 5 MG TAB 289310 GLYBURIDE Inactive Immunizations Vaccine Administration Date Value [...] Panel - Chemistry sodium, serum 137 mmol/L 452-030 7060/06/18 potassium, serum 5.3 mmol/L 3.5-5.2 chloride, serum [...] (AUTO) - Chemistry sodium, serum 141 mmol/L 180-695 3644/07/29 potassium, serum 5.7 mmol/L 3.5-5.2 chloride, serum [...] 7.2 % 4.3-6.0 sodium, serum 137 mmol/L 737-150 5512/01/23 potassium, serum 5.2 mmol/L 3.5-5.2 chloride, serum [...] mg/dL Encounters Code Encounter Date Provider Facility CPT-67232 Level 4 Est. Patient 08:59:29 CDT Simon Castillo MD [facility] CPT-29705 Level 4 Est. Patient 10:52:51 TROUBLE TRACER Simon Castillo MD [facility] CPT-13783 Level 4 Est. Patient 11:50:30 CDT Simon Castillo MD [facility] CPT-01768 Level 4 Est. Patient 09:54:46 CDT Simon Castillo MD [facility] CPT-03661 Level 3 Est. Patient 11:10:14 CDT Simon Castillo MD [facility] CPT-25097 Level 4 Est. Patient 09:44:02 CDT Simon Castillo MD [facility] CPT-70022 Level 3 Est. Patient 09:27:48 CDT Simon Castillo MD [facility] CPT-82572 Level 3 Est. Patient 09:58:06 TROUBLE TRACER Simon Castillo MD [facility] CPT-74428 Level 3 Est. Patient 09:51:35 CDT Simon Castillo MD [facility] Procedures Code Procedure Name Date Entry Date Standard Description CPT-34421 EKG Trac and Interp 09:21:58 CDT CPT-90312 Chest 2V Frontal and Lat 09:21:58 CDT CPT-Cryo Cryotherapy 10:54:51 TROUBLE TRACER CPT-81391 Administration 2+ single or combination vaccines inc oral 10:42:19 CDT CPT-49602 Administration single or combination vaccine inc oral 10 :42:19 CDT CPT-22941 Pneumovax 10:42:19 CDT CPT-82849 Influenza High Dose age 65+ 10:42:19 CDT CPT-67905 Administration single or combination vaccine inc oral 13 :18:54 CDT CPT-76615 Influenza High Dose age 65+ 13:18:54 CDT CPT-97261 Venipuncture Draw Fee 11:53:16 CDT CPT-59684 LS spine comp w obliq 11:03:13 CDT CPT-Cryo Cryotherapy 08:27:16 TROUBLE TRACER CPT-53374 Administration single or combination vaccine inc oral 10 :56:34 CDT CPT-44702 Influenza High Dose age 65+ 10:56:34 CDT
--- OUTSIDE RECORDS SUMMARY | 2018-03-31 19:36 | XMS REPORT | Clinical Summary ---
Author Author Admin, RAFFI Organization [facility] Address Unknown Phone Allergies, Adverse Reactions, [...] 1 po qod x 5 doses LEVOFLOXACIN 34803996668 Active Simon Castillo MD Active CETIRIZINE HCL 10 MG TABS 1 po qd as needed for allergies CETIRIZINE HCL 25161410284 No Longer Active Simon Castillo MD Active FISH OIL 1000 MG CPDR 1 pill by mouth twice daily for cholesterol OMEGA -3 FATTY ACIDS 71852310718 Active Simon Castillo MD Active BILBERRY CAPS 1 tab daily BILBERRY (VACCINIUM MYRTILLUS) CAPS 36820876220 Active Simon Castillo MD Active PREDNISONE 5 MG TAB Take one po qod PREDNISONE 26063458739 Active Simon Castillo MD Active ATENOLOL 50 MG TABS Take one by mouth daily ATENOLOL 31707978041 No Longer Active Simon Castillo MD Active GLYBURIDE 5 MG TAB Take one by mouth daily GLYBURIDE 80094459301 Active Jami Dickey Active FLONASE 50 MCG/ACT SUSP 2 puffs in each nostril daily FLUTICASONE PROPIONATE 90174557883 No Longer Active Simon Castillo MD Active GLYBURIDE 5 MG TAB Take one by mouth daily GLYBURIDE 51133883796 No Longer Active Simon Castillo MD Active SYMBICORT 80-4.5 MCG/ACT AERO 2 puffs twice a day BUDESONIDE-FORMOTEROL FUMARATE 00865367933 No Longer Active Simon Castillo MD Active PREDNISONE 20 MG TAB 2 tabs daily for 4 days, 1 tab daily for 4 days, 1/2 tab daily for 4 days PREDNISONE 97712565869 No Longer Active Simon Castillo MD Active AMOXICILLIN 500 MG CAPS 2 po BID x 10 days AMOXICILLIN 93108006569 No Longer Active Simon Castillo MD Active METFORMIN HCL 1000 MG TABS 1 by mount twice a day METFORMIN HCL 52269791816 Active Simon Castillo MD Active LUTEIN-ZEAXANTHIN 6-1 MG TABS Take 2 by mouth daily LUTEIN-ZEAXANTHIN 84418539199 Active Simon Castillo MD Active IBUPROFEN 800 MG TABS Take 1 tab every 6 hrs prn IBUPROFEN 47268730534 Active Simon Castillo MD Active LISINOPRIL-HYDROCHLOROTHIAZIDE 20-12.5 MG TABS 1 tab by mouth daily LISINOPRIL-HYDROCHLOROTHIAZIDE 29514768836 Active Simon Castillo MD Active GLYBURIDE 2.5 MG TABS Take one by mouth daily GLYBURIDE 30643294126 No Longer Active Simon Castillo MD Active LANCETS MISC 2 qd LANCETS 41525714851 Active Pamela Conde Active TrumpIT CONTOUR TEST STRP Use with testing twice daily GLUCOSE BLOOD 58214236004 Active Pamela Conde Active ACACIA ASPIRIN 325 MG TABS Take one by mouth daily ASPIRIN 08524661226 Active Pamela Conde Active GLYBURIDE 2.5 MG TABS Take one by mouth daily GLYBURIDE 2.5 MG TABS 987405 GLYBURIDE Inactive PREDNISONE 20 MG TAB 2 tabs daily for 4 days, 1 tab daily for 4 days, 1/2 tab daily for 4 days PREDNISONE 20 MG TAB 594025 PREDNISONE Inactive SYMBICORT 80-4.5 MCG/ACT AERO 2 puffs twice a day SYMBICORT 80-4.5 MCG/ACT AERO BUDESONIDE-FORMOTEROL FUMARATE Inactive FLONASE 50 MCG/ACT SUSP 2 puffs in each nostril daily FLONASE 50 MCG/ACT SUSP 673620 FLUTICASONE PROPIONATE Inactive ATENOLOL 50 MG TABS Take one by mouth daily ATENOLOL 50 MG TABS 351341 ATENOLOL Inactive CETIRIZINE HCL 10 MG TABS 1 po qd as needed for allergies CETIRIZINE HCL 10 MG TABS 4875046 CETIRIZINE HCL Inactive AMOXICILLIN 500 MG CAPS 2 po BID x 10 days AMOXICILLIN 500 MG CAPS 071967 AMOXICILLIN Inactive GLYBURIDE 5 MG TAB Take one by mouth daily GLYBURIDE 5 MG TAB 688433 GLYBURIDE Inactive Immunizations Vaccine Administration Date Value [...] Panel - Chemistry sodium, serum 137 mmol/L 883-213 4548/06/26 potassium, serum 5.7 mmol/L 3.5-5.2 chloride, serum 104 mmol/L 98-107 carbon dioxide, venous blood 21.2 mmol/L 21.0-32.0 blood glucose 129 mg/dL 65-110 calcium, serum 9.0 mg/dL 8.5-10.1 urea nitrogen, blood 67 mg/dL 7-18 creatinine, serum 3.30 mg/dL 0.60-1.30 sodium, serum 140 mmol/L 224-481 3398/07/10 potassium, serum 5.3 mmol/L 3.5-5.2 chloride, serum 105 mmol/L 98-107 carbon dioxide, venous blood 25.5 mmol/L 21.0-32.0 blood glucose 119 mg/dL 65-110 calcium, serum 8.9 mg/dL 8.5-10.1 urea nitrogen, blood 44 mg/dL 7-18 creatinine, serum 2.50 mg/dL 0.60-1.30 Lab Report: CBC W/DIFF, Comp. Metabolic Panel - Chemistry sodium, serum 137 mmol/L 132-672 4032/06/18 potassium, serum 5.3 mmol/L 3.5-5.2 chloride, serum [...] (AUTO) - Chemistry sodium, serum 141 mmol/L 342-206 4165/07/29 potassium, serum 5.7 mmol/L 3.5-5.2 chloride, serum [...] 7.2 % 4.3-6.0 sodium, serum 137 mmol/L 367-981 5051/01/23 potassium, serum 5.2 mmol/L 3.5-5.2 chloride, serum [...] pH, urine, semiquantitative 5.5 5.0-8.5 Office Visit: 6 month f/u 306 - Chemistry cholesterol, target level 200 mg/dL triglyceride, target level 200 mg/dL HDL cholesterol, serum, target level 35 mg/dL LDL target level 100 mg/dL Encounters Code Encounter Date Provider Facility CPT-50799 Level 4 Est. Patient 08:59:29 CDT Simon Castillo MD [facility] CPT-76037 Level 4 Est. Patient 10:52:51 SAFETY ENGINEER Simon Castillo MD [facility] CPT-89347 Level 4 Est. Patient 11:50:30 CDT Simon Castillo MD [facility] CPT-52787 Level 4 Est. Patient 09:54:46 CDT Simon Castillo MD [facility] CPT-11816 Level 3 Est. Patient 11:10:14 CDT Simon Castillo MD [facility] CPT-61405 Level 4 Est. Patient 09:44:02 CDT Simon Castillo MD [facility] CPT-75526 Level 3 Est. Patient 09:27:48 CDT Simon Castillo MD [facility] CPT-45694 Level 3 Est. Patient 09:58:06 SAFETY ENGINEER Simon Castillo MD [facility] CPT-04321 Level 3 Est. Patient 09:51:35 CDT Simon Castillo MD [facility] Procedures Code Procedure Name Date Entry Date Standard Description CPT-51080 EKG Trac and Interp 09:21:58 CDT CPT-07990 Chest 2V Frontal and Lat 09:21:58 CDT CPT-Cryo Cryotherapy 10:54:51 SAFETY ENGINEER CPT-78869 Administration 2+ single or combination vaccines inc oral 10:42:19 CDT CPT-62161 Administration single or combination vaccine inc oral 10 :42:19 CDT CPT-02443 Pneumovax 10:42:19 CDT CPT-75834 Influenza High Dose age 65+ 10:42:19 CDT CPT-18506 Administration single or combination vaccine inc oral 13 :18:54 CDT CPT-27883 Influenza High Dose age 65+ 13:18:54 CDT CPT-45418 Venipuncture Draw Fee 11:53:16 CDT CPT-91653 LS spine comp w obliq 11:03:13 CDT CPT-Cryo Cryotherapy 08:27:16 SAFETY ENGINEER CPT-12231 Administration single or combination vaccine inc oral 10 :56:34 CDT CPT-55998 Influenza High Dose age 65+ 10:56:34 CDT
--- OUTSIDE RECORDS SUMMARY | 2018-03-31 19:36 | XMS REPORT | Clinical Summary ---
Author Author Admin, RAFFI Organization [facility] Address Unknown Phone Unavailable Allergies, [...] MG TABS 1 po q a.m. GLIMEPIRIDE 86495945546 Active Simon Castillo MD Active CARVEDILOL 6.25 MG TABS 1 po BID CARVEDILOL 59377892233 Active Simon Castillo MD Active LISINOPRIL-HYDROCHLOROTHIAZIDE 20-12.5 MG TABS 1/2 tab by mouth daily LISINOPRIL-HYDROCHLOROTHIAZIDE 10118445899 Active Simon Castillo MD Active PREDNISONE 5 MG TABS 1 po qod PREDNISONE 35549401145 Active Simon Castillo MD Active TRAMADOL HCL 50 MG TABS 1-2 tablets every 6 hours as needed for pain TRAMADOL HCL 31603088747 Active Simon Castillo MD Active PREDNISONE 5 MG TAB Take one po qod PREDNISONE 04247133512 No Longer Active Simon Castillo MD Active GLYBURIDE 5 MG TAB Take one by mouth daily GLYBURIDE 97780594779 No Longer Active Simon Castillo MD Active LEVAQUIN 750 MG TABS 1 po qod x 5 doses LEVOFLOXACIN 83018035669 No Longer Active Simon Castillo MD Active CETIRIZINE HCL 10 MG TABS 1 po qd as needed for allergies CETIRIZINE HCL 82792740833 No Longer Active Simon Castillo MD Active FISH OIL 1000 MG CPDR 1 pill by mouth twice daily for cholesterol OMEGA -3 FATTY ACIDS 77176117479 Active Simon Castillo MD Active BILBERRY CAPS 1 tab daily BILBERRY (VACCINIUM MYRTILLUS) CAPS 49431055785 Active Simon Castillo MD Active ATENOLOL 50 MG TABS Take one by mouth daily ATENOLOL 47626848902 No Longer Active Simon Castillo MD Active FLONASE 50 MCG/ACT SUSP 2 puffs in each nostril daily FLUTICASONE PROPIONATE 77475624399 No Longer Active Simon Castillo MD Active GLYBURIDE 5 MG TAB Take one by mouth daily GLYBURIDE 40966878598 No Longer Active Simon Castillo MD Active SYMBICORT 80-4.5 MCG/ACT AERO 2 puffs twice a day BUDESONIDE-FORMOTEROL FUMARATE 55480444998 No Longer Active Simon Castillo MD Active PREDNISONE 20 MG TAB 2 tabs daily for 4 days, 1 tab daily for 4 days, 1/2 tab daily for 4 days PREDNISONE 95217099718 No Longer Active Simon Castillo MD Active AMOXICILLIN 500 MG CAPS 2 po BID x 10 days AMOXICILLIN 35178683304 No Longer Active Simon Castillo MD Active METFORMIN HCL 1000 MG TABS 1 by mounth twice a day METFORMIN HCL 71972761214 No Longer Active Simon Castillo MD Active LUTEIN-ZEAXANTHIN 6-1 MG TABS Take 2 by mouth daily LUTEIN-ZEAXANTHIN 02524324997 Active Simon Castillo MD Active IBUPROFEN 800 MG TABS Take 1 tab every 6 hrs prn IBUPROFEN 31635627394 No Longer Active Simon Castillo MD Active GLYBURIDE 2.5 MG TABS Take one by mouth daily GLYBURIDE 50675195846 No Longer Active Simon Castillo MD Active LANCETS MISC 2 qd LANCETS 23382695417 Active Pamela Conde Active ACACIA CONTOUR TEST STRP Use with testing twice daily GLUCOSE BLOOD 00272516629 Active Pamela Conde Active ACACIA ASPIRIN 325 MG TABS Take one by mouth daily ASPIRIN 83047077026 Active Pamela Conde Active GLYBURIDE 2.5 MG TABS Take one by mouth daily GLYBURIDE 2.5 MG TABS 435633 GLYBURIDE Inactive PREDNISONE 20 MG TAB 2 tabs daily for 4 days, 1 tab daily for 4 days, 1/2 tab daily for 4 days PREDNISONE 20 MG TAB 564551 PREDNISONE Inactive SYMBICORT 80-4.5 MCG/ACT AERO 2 puffs twice a day SYMBICORT 80-4.5 MCG/ACT AERO BUDESONIDE-FORMOTEROL FUMARATE Inactive FLONASE 50 MCG/ACT SUSP 2 puffs in each nostril daily FLONASE 50 MCG/ACT SUSP 101088 FLUTICASONE PROPIONATE Inactive ATENOLOL 50 MG TABS Take one by mouth daily ATENOLOL 50 MG TABS 590196 ATENOLOL Inactive CETIRIZINE HCL 10 MG TABS 1 po qd as needed for allergies CETIRIZINE HCL 10 MG TABS 4397926 CETIRIZINE HCL Inactive LEVAQUIN 750 MG TABS 1 po qod x 5 doses LEVAQUIN 750 MG TABS 816324 LEVOFLOXACIN Inactive GLYBURIDE 5 MG TAB Take one by mouth daily GLYBURIDE 5 MG TAB 089953 GLYBURIDE Inactive PREDNISONE 5 MG TAB Take one po qod PREDNISONE 5 MG TAB 982117 PREDNISONE Inactive AMOXICILLIN 500 MG CAPS 2 po BID x 10 days AMOXICILLIN 500 MG CAPS 286178 AMOXICILLIN Inactive GLYBURIDE 5 MG TAB Take one by mouth daily GLYBURIDE 5 MG TAB 209983 GLYBURIDE Inactive Immunizations Vaccine Administration Date Value [...] Panel - Chemistry sodium, serum 137 mmol/L 862-934 3410/06/26 potassium, serum 5.7 mmol/L 3.5-5.2 chloride, serum 104 mmol/L 98-107 carbon dioxide, venous blood 21.2 mmol/L 21.0-32.0 blood glucose 129 mg/dL 65-110 calcium, serum 9.0 mg/dL 8.5-10.1 urea nitrogen, blood 67 mg/dL 7-18 creatinine, serum 3.30 mg/dL 0.60-1.30 sodium, serum 140 mmol/L 044-682 8497/07/10 potassium, serum 5.3 mmol/L 3.5-5.2 chloride, serum 105 mmol/L 98-107 carbon dioxide, venous blood 25.5 mmol/L 21.0-32.0 blood glucose 119 mg/dL 65-110 calcium, serum 8.9 mg/dL 8.5-10.1 urea nitrogen, blood 44 mg/dL 7-18 creatinine, serum 2.50 mg/dL 0.60-1.30 Lab Report: CBC W/DIFF, Comp. Metabolic Panel - Chemistry sodium, serum 137 mmol/L 369-983 3674/06/18 potassium, serum 5.3 mmol/L 3.5-5.2 chloride, serum [...] Panel - Chemistry sodium, serum 137 mmol/L 516-654 1544/10/14 potassium, serum 5.6 mmol/L 3.5-5.2 chloride, serum 103 mmol/L 98-107 carbon dioxide, venous blood 24.9 mmol/L 21.0-32.0 blood glucose 200 mg/dL 65-110 urea nitrogen, blood 43 mg/dL 7-18 creatinine, serum 2.60 mg/dL 0.60-1.30 calcium, serum 9.1 mg/dL 8.5-10.1 sodium, serum 139 mmol/L 918-834 5823/11/13 potassium, serum 5.8 mmol/L 3.5-5.2 chloride, serum [...] % 11.6-14.8 platelet count 214 10^3/MM^3 10*3/mm3 044-431 1881/11/13 leukocyte count, blood 9.7 10^3/MM^3 10*3/mm3 4.6-10.2 [...] 6.9 % 4.3-6.0 sodium, serum 137 mmol/L 489-641 9701/08/21 potassium, serum 5.3 mmol/L 3.5-5.2 chloride, serum [...] 7.2 % 4.3-6.0 sodium, serum 137 mmol/L 552-199 2502/01/23 potassium, serum 5.2 mmol/L 3.5-5.2 chloride, serum [...] Panel - Chemistry sodium, serum 139 mmol/L 461-786 6606/10/21 potassium, serum 4.7 mmol/L 3.5-5.2 chloride, serum 104 mmol/L 98-107 carbon dioxide, venous blood 26.1 mmol/L 21.0-32.0 blood glucose 148 mg/dL 65-110 urea nitrogen, blood 38 mg/dL 7-18 creatinine, serum 2.60 mg/dL 0.60-1.30 calcium, serum 8.6 mg/dL 8.5-10.1 sodium, serum 140 mmol/L 265-533 8505/11/17 potassium, serum 5.0 mmol/L 3.5-5.2 chloride, serum [...] mg/dL Encounters Code Encounter Date Provider Facility CPT-56432 Level 4 Est. Patient 10:10:09 ALUM OPERATOR Simon Castillo MD [facility] CPT-33012 Level 4 Est. Patient 11:48:19 CDT Simon Castillo MD [facility] CPT-67525 Level 4 Est. Patient 08:59:29 CDT Simon Castillo MD [facility] CPT-10579 Level 4 Est. Patient 10:52:51 ALUM OPERATOR Simon Castillo MD [facility] CPT-52275 Level 4 Est. Patient 11:50:30 CDT Simon Castillo MD [facility] CPT-66809 Level 4 Est. Patient 09:54:46 CDT Simon Castillo MD [facility] CPT-37887 Level 3 Est. Patient 11:10:14 CDT Simon Castillo MD [facility] CPT-73542 Level 4 Est. Patient 09:44:02 CDT Simon Castillo MD [facility] CPT-98718 Level 3 Est. Patient 09:27:48 CDT Simon Castillo MD [facility] CPT-45037 Level 3 Est. Patient 09:58:06 ALUM OPERATOR Simon Castillo MD [facility] CPT-04395 Level 3 Est. Patient 09:51:35 CDT Simon Castillo MD [facility] Procedures Code Procedure Name Date Entry Date Standard Description CPT-81010 Venipuncture Draw Fee 09:02:51 ALUM OPERATOR CPT-68505 Venipuncture Draw Fee 12:45:08 ALUM OPERATOR CPT-60063 Venipuncture Draw Fee 09:25:31 CDT CPT-G0008 Administration of Influenza Virus Vaccine 14:41:29 CDT CPT-54111 Fluzone High-Dose Intramuscular Suspension 14:41:29 CDT CPT-Cryo Cryotherapy 11:48:20 CDT CPT-97139 EKG Trac and Interp 09:21:58 CDT CPT-46218 Chest 2V Frontal and Lat 09:21:58 CDT CPT-Cryo Cryotherapy 10:54:51 ALUM OPERATOR CPT-30237 Administration 2+ single or combination vaccines inc oral 10:42:19 CDT CPT-02913 Administration single or combination vaccine inc oral 10 :42:19 CDT CPT-04296 Pneumovax 10:42:19 CDT CPT-55613 Influenza High Dose age 65+ 10:42:19 CDT CPT-03705 Administration single or combination vaccine inc oral 13 :18:54 CDT CPT-02032 Influenza High Dose age 65+ 13:18:54 CDT CPT-96937 Venipuncture Draw Fee 11:53:16 CDT CPT-58336 LS spine comp w obliq 11:03:13 CDT CPT-Cryo Cryotherapy 08:27:16 ALUM OPERATOR CPT-30637 Administration single or combination vaccine inc oral 10 :56:34 CDT CPT-77651 Influenza High Dose age 65+ 10:56:34 CDT
--- OUTSIDE RECORDS SUMMARY | 2018-03-31 19:37 | XMS REPORT | Clinical Summary ---
Author Author Admin, RAFFI Organization [facility] Address Unknown Phone Unavailable Allergies, Adverse [...] hours as needed for pain TRAMADOL HCL 30072822133 Active Simon Castillo MD Active PREDNISONE 5 MG TAB Take one po qod PREDNISONE 62003293035 No Longer Active Simon Castillo MD Active GLYBURIDE 5 MG TAB Take one by mouth daily GLYBURIDE 09598507543 No Longer Active Simon Castillo MD Active LEVAQUIN 750 MG TABS 1 po qod x 5 doses LEVOFLOXACIN 13681289545 No Longer Active Simon Castillo MD Active CETIRIZINE HCL 10 MG TABS 1 po qd as needed for allergies CETIRIZINE HCL 01087967843 No Longer Active Simon Castillo MD Active FISH OIL 1000 MG CPDR 1 pill by mouth twice daily for cholesterol OMEGA -3 FATTY ACIDS 42376595693 Active Simon Castillo MD Active BILBERRY CAPS 1 tab daily BILBERRY (VACCINIUM MYRTILLUS) CAPS 41926988632 Active Simon Castillo MD Active ATENOLOL 50 MG TABS Take one by mouth daily ATENOLOL 51666071202 No Longer Active Simon Castillo MD Active FLONASE 50 MCG/ACT SUSP 2 puffs in each nostril daily FLUTICASONE PROPIONATE 59603636639 No Longer Active Simon Castillo MD Active GLYBURIDE 5 MG TAB Take one by mouth daily GLYBURIDE 20976460633 No Longer Active Simon Castillo MD Active SYMBICORT 80-4.5 MCG/ACT AERO 2 puffs twice a day BUDESONIDE-FORMOTEROL FUMARATE 81945623546 No Longer Active Simon Castillo MD Active PREDNISONE 20 MG TAB 2 tabs daily for 4 days, 1 tab daily for 4 days, 1/2 tab daily for 4 days PREDNISONE 54762452429 No Longer Active Simon Castillo MD Active AMOXICILLIN 500 MG CAPS 2 po BID x 10 days AMOXICILLIN 09190266885 No Longer Active Simon Castillo MD Active METFORMIN HCL 1000 MG TABS 1 by mounth twice a day METFORMIN HCL 89686075484 Active Simon Castillo MD Active LUTEIN-ZEAXANTHIN 6-1 MG TABS Take 2 by mouth daily LUTEIN-ZEAXANTHIN 92402514770 Active Simon Castillo MD Active IBUPROFEN 800 MG TABS Take 1 tab every 6 hrs prn IBUPROFEN 65248155944 No Longer Active Simon Castillo MD Active LISINOPRIL-HYDROCHLOROTHIAZIDE 20-12.5 MG TABS 1 tab by mouth daily LISINOPRIL-HYDROCHLOROTHIAZIDE 14663324993 Active Simon Castillo MD Active GLYBURIDE 2.5 MG TABS Take one by mouth daily GLYBURIDE 80203556561 No Longer Active Simon Castillo MD Active LANCETS MISC 2 qd LANCETS 03939564109 Active Pamela Conde Active [employer] CONTOUR TEST STRP Use with testing twice daily GLUCOSE BLOOD 61168348327 Active Pamela Conde Active ACACIA ASPIRIN 325 MG TABS Take one by mouth daily ASPIRIN 07322668977 Active Pamela Conde Active GLYBURIDE 2.5 MG TABS Take one by mouth daily GLYBURIDE 2.5 MG TABS 716236 GLYBURIDE Inactive PREDNISONE 20 MG TAB 2 tabs daily for 4 days, 1 tab daily for 4 days, 1/2 tab daily for 4 days PREDNISONE 20 MG TAB 913605 PREDNISONE Inactive SYMBICORT 80-4.5 MCG/ACT AERO 2 puffs twice a day SYMBICORT 80-4.5 MCG/ACT AERO BUDESONIDE-FORMOTEROL FUMARATE Inactive FLONASE 50 MCG/ACT SUSP 2 puffs in each nostril daily FLONASE 50 MCG/ACT SUSP 105482 FLUTICASONE PROPIONATE Inactive ATENOLOL 50 MG TABS Take one by mouth daily ATENOLOL 50 MG TABS 856214 ATENOLOL Inactive CETIRIZINE HCL 10 MG TABS 1 po qd as needed for allergies CETIRIZINE HCL 10 MG TABS 1696548 CETIRIZINE HCL Inactive LEVAQUIN 750 MG TABS 1 po qod x 5 doses LEVAQUIN 750 MG TABS 333681 LEVOFLOXACIN Inactive GLYBURIDE 5 MG TAB Take one by mouth daily GLYBURIDE 5 MG TAB 317112 GLYBURIDE Inactive PREDNISONE 5 MG TAB Take one po qod PREDNISONE 5 MG TAB 250962 PREDNISONE Inactive AMOXICILLIN 500 MG CAPS 2 po BID x 10 days AMOXICILLIN 500 MG CAPS 230978 AMOXICILLIN Inactive GLYBURIDE 5 MG TAB Take one by mouth daily GLYBURIDE 5 MG TAB 304299 GLYBURIDE Inactive Immunizations Vaccine Administration Date Value [...] Panel - Chemistry sodium, serum 137 mmol/L 784-886 9922/06/26 potassium, serum 5.7 mmol/L 3.5-5.2 chloride, serum 104 mmol/L 98-107 carbon dioxide, venous blood 21.2 mmol/L 21.0-32.0 blood glucose 129 mg/dL 65-110 calcium, serum 9.0 mg/dL 8.5-10.1 urea nitrogen, blood 67 mg/dL 7-18 creatinine, serum 3.30 mg/dL 0.60-1.30 sodium, serum 140 mmol/L 698-183 5680/07/10 potassium, serum 5.3 mmol/L 3.5-5.2 chloride, serum 105 mmol/L 98-107 carbon dioxide, venous blood 25.5 mmol/L 21.0-32.0 blood glucose 119 mg/dL 65-110 calcium, serum 8.9 mg/dL 8.5-10.1 urea nitrogen, blood 44 mg/dL 7-18 creatinine, serum 2.50 mg/dL 0.60-1.30 Lab Report: CBC W/DIFF, Comp. Metabolic Panel - Chemistry sodium, serum 137 mmol/L 030-115 2599/06/18 potassium, serum 5.3 mmol/L 3.5-5.2 chloride, serum [...] 7.2 % 4.3-6.0 sodium, serum 137 mmol/L 914-710 0885/01/23 potassium, serum 5.2 mmol/L 3.5-5.2 chloride, serum [...] mg/dL Encounters Code Encounter Date Provider Facility CPT-88616 Level 4 Est. Patient 11:48:19 CDT Simon Castillo MD [facility] CPT-52787 Level 4 Est. Patient 08:59:29 CDT Simon Castillo MD [facility] CPT-52390 Level 4 Est. Patient 10:52:51 MUMPS DEVELOPER Simon Castillo MD [facility] CPT-56002 Level 4 Est. Patient 11:50:30 CDT Simon Castillo MD [facility] CPT-50122 Level 4 Est. Patient 09:54:46 CDT Simon Castillo MD [facility] CPT-69057 Level 3 Est. Patient 11:10:14 CDT Simon Castillo MD [facility] CPT-07993 Level 4 Est. Patient 09:44:02 CDT Simon Castillo MD [facility] CPT-86089 Level 3 Est. Patient 09:27:48 CDT Simon Castillo MD [facility] CPT-34393 Level 3 Est. Patient 09:58:06 M[employer] DEVELOPER Simon Castillo MD [facility] CPT-72676 Level 3 Est. Patient 09:51:35 CDT Simon Castillo MD [facility] Procedures Code Procedure Name Date Entry Date Standard Description CPT-Cryo Cryotherapy 11:48:20 CDT CPT-28623 EKG Trac and Interp 09:21:58 CDT CPT-98629 Chest 2V Frontal and Lat 09:21:58 CDT CPT-Cryo Cryotherapy 10:54:51 [employer] DEVELOPER CPT-00815 Administration 2+ single or combination vaccines inc oral 10:42:19 CDT CPT-45525 Administration single or combination vaccine inc oral 10 :42:19 CDT CPT-73649 Pneumovax 10:42:19 CDT CPT-16258 Influenza High Dose age 65+ 10:42:19 CDT CPT-08986 Administration single or combination vaccine inc oral 13 :18:54 CDT CPT-74848 Influenza High Dose age 65+ 13:18:54 CDT CPT-70892 Venipuncture Draw Fee 11:53:16 CDT CPT-29683 LS spine comp w obliq 11:03:13 CDT CPT-Cryo Cryotherapy 08:27:16 MUMPS DEVELOPER CPT-23342 Administration single or combination vaccine inc oral 10 :56:34 CDT CPT-50601 Influenza High Dose age 65+ 10:56:34 CDT
--- OUTSIDE RECORDS SUMMARY | 2018-03-31 19:38 | XMS REPORT | Clinical Summary ---
Author Author Admin, RAFFI Organization [facility] Address Unknown Phone Allergies, Adverse Reactions, [...] 1 po qod x 5 doses LEVOFLOXACIN 49381591023 Active Simon Castillo MD Active CETIRIZINE HCL 10 MG TABS 1 po qd as needed for allergies CETIRIZINE HCL 10008952851 No Longer Active Simon Castillo MD Active FISH OIL 1000 MG CPDR 1 pill by mouth twice daily for cholesterol OMEGA -3 FATTY ACIDS 44443567729 Active Simon Castillo MD Active BILBERRY CAPS 1 tab daily BILBERRY (VACCINIUM MYRTILLUS) CAPS 26809853216 Active Simon Castillo MD Active PREDNISONE 5 MG TAB Take one po qod PREDNISONE 88849036053 Active Simon Castillo MD Active ATENOLOL 50 MG TABS Take one by mouth daily ATENOLOL 31846230898 No Longer Active Simon Castillo MD Active GLYBURIDE 5 MG TAB Take one by mouth daily GLYBURIDE 92526123110 Active Jami Dickey Active FLONASE 50 MCG/ACT SUSP 2 puffs in each nostril daily FLUTICASONE PROPIONATE 34211984088 No Longer Active Simon Castillo MD Active GLYBURIDE 5 MG TAB Take one by mouth daily GLYBURIDE 82815927151 No Longer Active Simon Castillo MD Active SYMBICORT 80-4.5 MCG/ACT AERO 2 puffs twice a day BUDESONIDE-FORMOTEROL FUMARATE 21463762402 No Longer Active Simon Castillo MD Active PREDNISONE 20 MG TAB 2 tabs daily for 4 days, 1 tab daily for 4 days, 1/2 tab daily for 4 days PREDNISONE 02491938401 No Longer Active Simon Castillo MD Active AMOXICILLIN 500 MG CAPS 2 po BID x 10 days AMOXICILLIN 77727980959 No Longer Active Simon Castillo MD Active METFORMIN HCL 1000 MG TABS 1 by mount twice a day METFORMIN HCL 44188771884 Active Simon Castillo MD Active LUTEIN-ZEAXANTHIN 6-1 MG TABS Take 2 by mouth daily LUTEIN-ZEAXANTHIN 41247726466 Active Simon Castillo MD Active IBUPROFEN 800 MG TABS Take 1 tab every 6 hrs prn IBUPROFEN 43847539170 Active Simon Castillo MD Active LISINOPRIL-HYDROCHLOROTHIAZIDE 20-12.5 MG TABS 1 tab by mouth daily LISINOPRIL-HYDROCHLOROTHIAZIDE 30269127923 Active Simon Castillo MD Active GLYBURIDE 2.5 MG TABS Take one by mouth daily GLYBURIDE 70299954121 No Longer Active Simon Castillo MD Active LANCETS MISC 2 qd LANCETS 57729279662 Active Pamela Conde Active [employer] CONTOUR TEST STRP Use with testing twice daily GLUCOSE BLOOD 84521388506 Active Pamela Conde Active ACACIA ASPIRIN 325 MG TABS Take one by mouth daily ASPIRIN 10232813254 Active Pmaela Conde Active GLYBURIDE 2.5 MG TABS Take one by mouth daily GLYBURIDE 2.5 MG TABS 009308 GLYBURIDE Inactive PREDNISONE 20 MG TAB 2 tabs daily for 4 days, 1 tab daily for 4 days, 1/2 tab daily for 4 days PREDNISONE 20 MG TAB 690705 PREDNISONE Inactive SYMBICORT 80-4.5 MCG/ACT AERO 2 puffs twice a day SYMBICORT 80-4.5 MCG/ACT AERO BUDESONIDE-FORMOTEROL FUMARATE Inactive FLONASE 50 MCG/ACT SUSP 2 puffs in each nostril daily FLONASE 50 MCG/ACT SUSP 111790 FLUTICASONE PROPIONATE Inactive ATENOLOL 50 MG TABS Take one by mouth daily ATENOLOL 50 MG TABS 179962 ATENOLOL Inactive CETIRIZINE HCL 10 MG TABS 1 po qd as needed for allergies CETIRIZINE HCL 10 MG TABS 3093624 CETIRIZINE HCL Inactive AMOXICILLIN 500 MG CAPS 2 po BID x 10 days AMOXICILLIN 500 MG CAPS 107042 AMOXICILLIN Inactive GLYBURIDE 5 MG TAB Take one by mouth daily GLYBURIDE 5 MG TAB 820252 GLYBURIDE Inactive Immunizations Vaccine Administration Date Value [...] Panel - Chemistry sodium, serum 137 mmol/L 948-963 1757/06/18 potassium, serum 5.3 mmol/L 3.5-5.2 chloride, serum [...] (AUTO) - Chemistry sodium, serum 141 mmol/L 249-112 3509/07/29 potassium, serum 5.7 mmol/L 3.5-5.2 chloride, serum [...] 7.2 % 4.3-6.0 sodium, serum 137 mmol/L 346-165 9719/01/23 potassium, serum 5.2 mmol/L 3.5-5.2 chloride, serum [...] mg/dL Encounters Code Encounter Date Provider Facility CPT-35994 Level 4 Est. Patient 08:59:29 CDT Simon Castillo MD [facility] CPT-30065 Level 4 Est. Patient 10:52:51 ADMINISTRATIVE MEDICAL DIRECTOR Simon Castillo MD [facility] CPT-43033 Level 4 Est. Patient 11:50:30 CDT Simon Castillo MD [facility] CPT-34468 Level 4 Est. Patient 09:54:46 CDT Simon Castillo MD [facility] CPT-68557 Level 3 Est. Patient 11:10:14 CDT Simon Castillo MD [facility] CPT-59657 Level 4 Est. Patient 09:44:02 CDT Simon Castillo MD [facility] CPT-65851 Level 3 Est. Patient 09:27:48 CDT Simon Castillo MD [facility] CPT-30157 Level 3 Est. Patient 09:58:06 ADMINISTRATIVE MEDICAL DIRECTOR Simon Castillo MD [facility] CPT-35433 Level 3 Est. Patient 09:51:35 CDT Simon Castillo MD [facility] Procedures Code Procedure Name Date Entry Date Standard Description CPT-61230 EKG Trac and Interp 09:21:58 CDT CPT-70097 Chest 2V Frontal and Lat 09:21:58 CDT CPT-Cryo Cryotherapy 10:54:51 ADMINISTRATIVE MEDICAL DIRECTOR CPT-50949 Administration 2+ single or combination vaccines inc oral 10:42:19 CDT CPT-04149 Administration single or combination vaccine inc oral 10 :42:19 CDT CPT-72367 Pneumovax 10:42:19 CDT CPT-13123 Influenza High Dose age 65+ 10:42:19 CDT CPT-62962 Administration single or combination vaccine inc oral 13 :18:54 CDT CPT-09712 Influenza High Dose age 65+ 13:18:54 CDT CPT-83838 Venipuncture Draw Fee 11:53:16 CDT CPT-33311 LS spine comp w obliq 11:03:13 CDT CPT-Cryo Cryotherapy 08:27:16 ADMINISTRATIVE MEDICAL DIRECTOR CPT-38760 Administration single or combination vaccine inc oral 10 :56:34 CDT CPT-50683 Influenza High Dose age 65+ 10:56:34 CDT
--- OUTSIDE RECORDS SUMMARY | 2018-03-31 19:39 | XMS REPORT | Clinical Summary ---
Author Author Admin, RAFFI Organization [facility] Address Unknown Phone Allergies, Adverse Reactions, Alerts Allergy Name Reaction Description Start Date Severity Status Provider No Known Allergies Pamela Conde Conditions or Problems Problem Name Problem Code [...] Generic Name NDC Status Provider Patient Instruction CETIRIZINE HCL 10 MG TABS 1 po qd as needed for allergies CETIRIZINE HCL 37038188005 Active Simon Castillo MD Active FISH OIL 1000 MG CPDR 1 pill by mouth twice daily for cholesterol OMEGA -3 FATTY ACIDS 40367968015 Active Simon Castillo MD Active BILBERRY CAPS 1 tab daily BILBERRY (VACCINIUM MYRTILLUS) CAPS 14881523268 Active Simon Castillo MD Active PREDNISONE 5 MG TAB Take one po qod PREDNISONE 71705500578 Active Simon Castillo MD Active ATENOLOL 50 MG TABS Take one by mouth daily ATENOLOL 80569495696 No Longer Active Simon Castillo MD Active FLONASE 50 MCG/ACT SUSP 2 puffs in each nostril daily FLUTICASONE PROPIONATE 42781250315 No Longer Active Simon Castillo MD Active GLYBURIDE 5 MG TAB Take one by mouth daily GLYBURIDE 66743648948 No Longer Active Simon Castillo MD Active SYMBICORT 80-4.5 MCG/ACT AERO 2 puffs twice a day BUDESONIDE- FORMOTEROL FUMARATE 03021284037 Active Simon Castillo MD Active PREDNISONE 20 MG TAB 2 tabs daily for 4 days, 1 tab daily for 4 days, 1/2 tab daily for 4 days PREDNISONE 87118117816 Active Simon Castillo MD Active AMOXICILLIN 500 MG CAPS 2 po BID x 10 days AMOXICILLIN 40655119615 No Longer Active Simon Castillo MD Active METFORMIN HCL 1000 MG TABS 1 by mount twice a day METFORMIN HCL 16125053428 Active Simon Castillo MD Active LUTEIN-ZEAXANTHIN 6-1 MG TABS Take 2 by mouth daily LUTEIN-ZEAXANTHIN 59862304732 Active Simon Castillo MD Active IBUPROFEN 800 MG TABS Take 1 tab every 6 hrs prn IBUPROFEN 39581037948 Active Simon Castillo MD Active LISINOPRIL-HYDROCHLOROTHIAZIDE 20-12.5 MG TABS 1 tab by mouth daily LISINOPRIL-HYDROCHLOROTHIAZIDE 93771835496 Active Simon Castillo MD Active GLYBURIDE 2.5 MG TABS Take one by mouth daily GLYBURIDE 59871016205 No Longer Active Simon Castillo MD Active LANCETS MISC 2 qd LANCETS 81798498589 Active Pamela Conde Active [employer] CONTOUR TEST STRP Use with testing twice daily GLUCOSE BLOOD 74376499016 Active Pamela Conde Active ACACIA ASPIRIN 325 MG TABS Take one by mouth daily ASPIRIN 39615834904 Active Pamela Conde Active GLYBURIDE 2.5 MG TABS Take one by mouth daily GLYBURIDE 2.5 MG TABS 218752 GLYBURIDE Inactive FLONASE 50 MCG/ACT SUSP 2 puffs in each nostril daily FLONASE 50 MCG/ACT SUSP 154370 FLUTICASONE PROPIONATE Inactive ATENOLOL 50 MG TABS Take one by mouth daily ATENOLOL 50 MG TABS 275640 ATENOLOL Inactive AMOXICILLIN 500 MG CAPS 2 po BID x 10 days AMOXICILLIN 500 MG CAPS 472475 AMOXICILLIN Inactive GLYBURIDE 5 MG TAB Take one by mouth daily GLYBURIDE 5 MG TAB 487645 GLYBURIDE Inactive Immunizations Vaccine Administration Date Value Standard Description pneumococcal immunization administered Pneumovax 23 [CVX33] pneumococcal polysaccharide vaccine, 23 valent Vital Signs Date Name Value Unit Range Description blood pressure, diastolic, second observation 74 mm[Hg] BP castillo blood pressure, diastolic 81 mm[Hg] BP castillo blood pressure, systolic, second observation 150 mm[Hg] BP sys blood pressure, systolic 156 mm[Hg] BP sys height E&M 66.5 [in_us] Bdy height pulse rate E&M 80 /min Heart rate temperature E&M 97.0 [degF] Body temperature weight E&M 212.38 [lb_av] Weight Measured blood pressure, diastolic 73 mm[Hg] BP castillo blood pressure, systolic 127 mm[Hg] BP sys height E&M 66.5 [in_us] Bdy height pulse rate E&M 52 /min Heart rate temperature E&M 96.9 [degF] Body temperature weight E&M 212 [lb_av] Weight Measured Diagnostic Results Date Name Value Unit Range Description Lab Report: CBC, Comp. Metabolic Panel, MICROALBUMIN, HGBA1C, UADIP (AUTO) - Chemistry sodium, serum 141 mmol/L 078-541 5154/07/29 potassium, serum 5.7 mmol/L 3.5-5.2 chloride, serum [...] 7.2 % 4.3-6.0 sodium, serum 137 mmol/L 079-184 1429/01/23 potassium, serum 5.2 mmol/L 3.5-5.2 chloride, serum [...] mg/dL Encounters Code Encounter Date Provider Facility CPT-32543 Level 4 Est. Patient 10:52:51 INSIDE TESTER Simon Castillo MD [facility] CPT-71104 Level 4 Est. Patient 11:50:30 CDT Simon Castillo MD [facility] CPT-80981 Level 4 Est. Patient 09:54:46 CDT Simon Castillo MD [facility] CPT-74819 Level 3 Est. Patient 11:10:14 CDT Simon Castillo MD [facility] CPT-97020 Level 4 Est. Patient 09:44:02 CDT Simon Castillo MD [facility] CPT-97949 Level 3 Est. Patient 09:27:48 CDT Simon Castillo MD [facility] CPT-63570 Level 3 Est. Patient 09:58:06 INSIDE TESTER Simon Castillo MD [facility] CPT-31518 Level 3 Est. Patient 09:51:35 CDT Simon Castillo MD [facility] Procedures Code Procedure Name Date Entry Date Standard Description CPT-Cryo Cryotherapy 10:54:51 INSIDE TESTER CPT-96508 Administration 2+ single or combination vaccines inc oral 10:42:19 CDT CPT-14200 Administration single or combination vaccine inc oral 10 :42:19 CDT CPT-20401 Pneumovax 10:42:19 CDT CPT-66258 Influenza High Dose age 65+ 10:42:19 CDT CPT-43375 Administration single or combination vaccine inc oral 13 :18:54 CDT CPT-11649 Influenza High Dose age 65+ 13:18:54 CDT CPT-60963 Venipuncture Draw Fee 11:53:16 CDT CPT-98660 LS spine comp w obliq 11:03:13 CDT CPT-Cryo Cryotherapy 08:27:16 INSIDE TESTER CPT-87670 Administration single or combination vaccine inc oral 10 :56:34 CDT CPT-50916 Influenza High Dose age 65+ 10:56:34 CDT
--- OUTSIDE RECORDS SUMMARY | 2018-03-31 19:39 | XMS REPORT | Clinical Summary ---
Author Author Admin, RAFFI Organization [facility] Address Unknown Phone Unavailable Allergies, Adverse Reactions, [...] MG TABS 1 po q a.m. GLIMEPIRIDE 75485035426 Active Simon Castillo MD Active CARVEDILOL 6.25 MG TABS 1 po BID CARVEDILOL 55715723077 Active Simon Castillo MD Active LISINOPRIL-HYDROCHLOROTHIAZIDE 20-12.5 MG TABS 1/2 tab by mouth daily LISINOPRIL-HYDROCHLOROTHIAZIDE 85670184414 Active Simon Castillo MD Active PREDNISONE 5 MG TABS 1 po qod PREDNISONE 77644765479 Active Simon Castillo MD Active TRAMADOL HCL 50 MG TABS 1-2 tablets every 6 hours as needed for pain TRAMADOL HCL 79644200022 Active Simon Castillo MD Active PREDNISONE 5 MG TAB Take one po qod PREDNISONE 54431178059 No Longer Active Simon Castillo MD Active GLYBURIDE 5 MG TAB Take one by mouth daily GLYBURIDE 43221363356 No Longer Active Simon Castillo MD Active LEVAQUIN 750 MG TABS 1 po qod x 5 doses LEVOFLOXACIN 83015175072 No Longer Active Simon Castillo MD Active CETIRIZINE HCL 10 MG TABS 1 po qd as needed for allergies CETIRIZINE HCL 24321051874 No Longer Active Simon Castillo MD Active FISH OIL 1000 MG CPDR 1 pill by mouth twice daily for cholesterol OMEGA -3 FATTY ACIDS 17508466631 Active Simon Castillo MD Active BILBERRY CAPS 1 tab daily BILBERRY (VACCINIUM MYRTILLUS) CAPS 45891160184 Active Simon Castillo MD Active ATENOLOL 50 MG TABS Take one by mouth daily ATENOLOL 08312708745 No Longer Active Simon Castillo MD Active FLONASE 50 MCG/ACT SUSP 2 puffs in each nostril daily FLUTICASONE PROPIONATE 62059554840 No Longer Active Simon Castillo MD Active GLYBURIDE 5 MG TAB Take one by mouth daily GLYBURIDE 77164635369 No Longer Active Simon Castillo MD Active SYMBICORT 80-4.5 MCG/ACT AERO 2 puffs twice a day BUDESONIDE-FORMOTEROL FUMARATE 44484008750 No Longer Active Simon Castillo MD Active PREDNISONE 20 MG TAB 2 tabs daily for 4 days, 1 tab daily for 4 days, 1/2 tab daily for 4 days PREDNISONE 36658096220 No Longer Active Simon Castillo MD Active AMOXICILLIN 500 MG CAPS 2 po BID x 10 days AMOXICILLIN 58127771253 No Longer Active Simon Castillo MD Active METFORMIN HCL 1000 MG TABS 1 by mounth twice a day METFORMIN HCL 52422465492 No Longer Active Simon Castillo MD Active LUTEIN-ZEAXANTHIN 6-1 MG TABS Take 2 by mouth daily LUTEIN-ZEAXANTHIN 36386400495 Active Simon Castillo MD Active IBUPROFEN 800 MG TABS Take 1 tab every 6 hrs prn IBUPROFEN 13840092970 No Longer Active Simon Castillo MD Active GLYBURIDE 2.5 MG TABS Take one by mouth daily GLYBURIDE 24698086257 No Longer Active Simon Castillo MD Active LANCETS MISC 2 qd LANCETS 26711014892 Active Pamela Conde Active ACACIA CONTOUR TEST STRP Use with testing twice daily GLUCOSE BLOOD 34970124806 Active Pamela Conde Active ACACIA ASPIRIN 325 MG TABS Take one by mouth daily ASPIRIN 38072431707 Active Pamela Conde Active GLYBURIDE 2.5 MG TABS Take one by mouth daily GLYBURIDE 2.5 MG TABS 042302 GLYBURIDE Inactive PREDNISONE 20 MG TAB 2 tabs daily for 4 days, 1 tab daily for 4 days, 1/2 tab daily for 4 days PREDNISONE 20 MG TAB 857868 PREDNISONE Inactive SYMBICORT 80-4.5 MCG/ACT AERO 2 puffs twice a day SYMBICORT 80-4.5 MCG/ACT AERO BUDESONIDE-FORMOTEROL FUMARATE Inactive FLONASE 50 MCG/ACT SUSP 2 puffs in each nostril daily FLONASE 50 MCG/ACT SUSP 231764 FLUTICASONE PROPIONATE Inactive ATENOLOL 50 MG TABS Take one by mouth daily ATENOLOL 50 MG TABS 170319 ATENOLOL Inactive CETIRIZINE HCL 10 MG TABS 1 po qd as needed for allergies CETIRIZINE HCL 10 MG TABS 4219352 CETIRIZINE HCL Inactive LEVAQUIN 750 MG TABS 1 po qod x 5 doses LEVAQUIN 750 MG TABS 988890 LEVOFLOXACIN Inactive GLYBURIDE 5 MG TAB Take one by mouth daily GLYBURIDE 5 MG TAB 798933 GLYBURIDE Inactive PREDNISONE 5 MG TAB Take one po qod PREDNISONE 5 MG TAB 218029 PREDNISONE Inactive AMOXICILLIN 500 MG CAPS 2 po BID x 10 days AMOXICILLIN 500 MG CAPS 967924 AMOXICILLIN Inactive GLYBURIDE 5 MG TAB Take one by mouth daily GLYBURIDE 5 MG TAB 151089 GLYBURIDE Inactive Immunizations Vaccine Administration Date Value [...] Panel - Chemistry sodium, serum 137 mmol/L 639-594 6820/06/26 potassium, serum 5.7 mmol/L 3.5-5.2 chloride, serum 104 mmol/L 98-107 carbon dioxide, venous blood 21.2 mmol/L 21.0-32.0 blood glucose 129 mg/dL 65-110 calcium, serum 9.0 mg/dL 8.5-10.1 urea nitrogen, blood 67 mg/dL 7-18 creatinine, serum 3.30 mg/dL 0.60-1.30 sodium, serum 140 mmol/L 662-408 1855/07/10 potassium, serum 5.3 mmol/L 3.5-5.2 chloride, serum 105 mmol/L 98-107 carbon dioxide, venous blood 25.5 mmol/L 21.0-32.0 blood glucose 119 mg/dL 65-110 calcium, serum 8.9 mg/dL 8.5-10.1 urea nitrogen, blood 44 mg/dL 7-18 creatinine, serum 2.50 mg/dL 0.60-1.30 Lab Report: CBC W/DIFF, Comp. Metabolic Panel - Chemistry sodium, serum 137 mmol/L 265-769 1283/06/18 potassium, serum 5.3 mmol/L 3.5-5.2 chloride, serum [...] Panel - Chemistry sodium, serum 137 mmol/L 773-140 0799/10/14 potassium, serum 5.6 mmol/L 3.5-5.2 chloride, serum 103 mmol/L 98-107 carbon dioxide, venous blood 24.9 mmol/L 21.0-32.0 blood glucose 200 mg/dL 65-110 urea nitrogen, blood 43 mg/dL 7-18 creatinine, serum 2.60 mg/dL 0.60-1.30 calcium, serum 9.1 mg/dL 8.5-10.1 sodium, serum 139 mmol/L 179-165 4549/11/13 potassium, serum 5.8 mmol/L 3.5-5.2 chloride, serum 105 mmol/L 98-107 carbon dioxide, venous blood 22.2 mmol/L 21.0-32.0 blood glucose 156 mg/dL 65-110 urea nitrogen, blood 49 mg/dL 7-18 creatinine, serum 2.30 mg/dL 0.60-1.30 calcium, serum 9.2 mg/dL 8.5-10.1 sodium, serum 140 mmol/L 222-849 8566/12/12 potassium, serum 5.5 mmol/L 3.5-5.2 chloride, serum [...] % 11.6-14.8 platelet count 217 10^3/MM^3 10*3/mm3 638-762 7400/10/14 leukocyte count, blood 9.2 10^3/MM^3 10*3/mm3 4.6-10.2 erythrocyte (RBC) count 4.67 10^6/MM^3 10*6/mm3 4.69-6.13 hemoglobin, blood 13.9 g/dL 13.5-17.5 hematocrit, blood 42.4 % 41.0-53.0 mean corpuscular volume, RBC 91 fL 80-97 mean corpuscular hemoglobin, RBC 29.7 pg 27.0-31.2 mean corpuscular hemoglobin concentration, RBC 32.8 G/DL % 31.8- 35.4 red blood cell distribution width 14.7 % 11.6-14.8 platelet count 214 10^3/MM^3 10*3/mm3 863-890 8556/11/13 leukocyte count, blood 9.7 10^3/MM^3 10*3/mm3 4.6-10.2 [...] 6.9 % 4.3-6.0 sodium, serum 137 mmol/L 332-655 0004/08/21 potassium, serum 5.3 mmol/L 3.5-5.2 chloride, serum [...] 7.2 % 4.3-6.0 sodium, serum 137 mmol/L 406-722 8122/01/23 potassium, serum 5.2 mmol/L 3.5-5.2 chloride, serum [...] Panel - Chemistry sodium, serum 139 mmol/L 561-117 6036/10/21 potassium, serum 4.7 mmol/L 3.5-5.2 chloride, serum 104 mmol/L 98-107 carbon dioxide, venous blood 26.1 mmol/L 21.0-32.0 blood glucose 148 mg/dL 65-110 urea nitrogen, blood 38 mg/dL 7-18 creatinine, serum 2.60 mg/dL 0.60-1.30 calcium, serum 8.6 mg/dL 8.5-10.1 sodium, serum 140 mmol/L 440-135 6327/11/17 potassium, serum 5.0 mmol/L 3.5-5.2 chloride, serum [...] mg/dL Encounters Code Encounter Date Provider Facility CPT-12059 Level 4 Est. Patient 10:10:09 DIRECTOR OF COMMUNITY LIFE Simon Castillo MD [facility] CPT-41585 Level 4 Est. Patient 11:48:19 CDT Simon Castillo MD [facility] CPT-54481 Level 4 Est. Patient 08:59:29 CDT Simon Castillo MD [facility] CPT-32078 Level 4 Est. Patient 10:52:51 DIRECTOR OF COMM[employer]ITY LIFE Simon Castillo MD [facility] CPT-33818 Level 4 Est. Patient 11:50:30 CDT Simon Castillo MD [facility] CPT-03385 Level 4 Est. Patient 09:54:46 CDT Simon Castillo MD [facility] CPT-84357 Level 3 Est. Patient 11:10:14 CDT Simon Castillo MD [facility] CPT-55850 Level 4 Est. Patient 09:44:02 CDT Simon Castillo MD [facility] CPT-30797 Level 3 Est. Patient 09:27:48 CDT Simon Castillo MD [facility] CPT-31984 Level 3 Est. Patient 09:58:06 DIRECTOR OF COMM[employer]ITY LIFE Simon Castillo MD [facility] CPT-36536 Level 3 Est. Patient 09:51:35 CDT Simon Castillo MD [facility] Procedures Code Procedure Name Date Entry Date Standard Description CPT-91938 Venipuncture Draw Fee 08:07:29 [employer] OF [employer] CPT-21341 Venipuncture Draw Fee 09:02:51 DIRECT[employer] OF COMM[employer] CPT-24851 Venipuncture Draw Fee 12:45:08 [employer] CPT-86036 Venipuncture Draw Fee 09:25:31 CDT CPT-G0008 Administration of Influenza Virus Vaccine 14:41:29 CDT CPT-37637 Fluzone High-Dose Intramuscular Suspension 14:41:29 CDT CPT-Cryo Cryotherapy 11:48:20 CDT CPT-06843 EKG Trac and Interp 09:21:58 CDT CPT-83891 Chest 2V Frontal and Lat 09:21:58 CDT CPT-Cryo Cryotherapy 10:54:51 [employer] CPT-00000 Administration 2+ single or combination vaccines inc oral 10:42:19 CDT CPT-97894 Administration single or combination vaccine inc oral 10 :42:19 CDT CPT-09947 Pneumovax 10:42:19 CDT CPT-87108 Influenza High Dose age 65+ 10:42:19 CDT CPT-68650 Administration single or combination vaccine inc oral 13 :18:54 CDT CPT-15273 Influenza High Dose age 65+ 13:18:54 CDT CPT-39569 Venipuncture Draw Fee 11:53:16 CDT CPT-29677 LS spine comp w obliq 11:03:13 CDT CPT-Cryo Cryotherapy 08:27:16 [employer] COMM[employer] CPT-09375 Administration single or combination vaccine inc oral 10 :56:34 CDT CPT-11095 Influenza High Dose age 65+ 10:56:34 CDT
--- OUTSIDE RECORDS SUMMARY | 2018-03-31 19:40 | XMS REPORT | Clinical Summary ---
Author Author Admin, RAFFI Organization [facility] Address Unknown [...] MD Cough ICD-786.2 Inactive Simon Castillo MD SINUSITIS, ACUTE ICD-461.9 Inactive Simon Castillo MD BENIGN PROSTATIC HYPERTROPHY, MILD, HX OF ICD-V13.89 Inactive Simon Castillo MD Medication List Medication Instructions Start Date Stop Date Generic Name NDC Status Provider Patient Instruction GLIMEPIRIDE 1 MG TABS 1 po q a.m. GLIMEPIRIDE 36703979685 Active Simon Castillo MD Active CARVEDILOL 6.25 MG TABS 1 po BID CARVEDILOL 85985005726 Active Simon Castillo MD Active LISINOPRIL-HYDROCHLOROTHIAZIDE 20-12.5 MG TABS 1/2 tab by mouth daily LISINOPRIL-HYDROCHLOROTHIAZIDE 69846867880 Active Simon Castillo MD Active PREDNISONE 5 MG TABS 1 po qod PREDNISONE 42811208842 Active Simon Castillo MD Active TRAMADOL HCL 50 MG TABS 1-2 tablets every 6 hours as needed for pain TRAMADOL HCL 50896475415 Active Simon Castillo MD Active PREDNISONE 5 MG TAB Take one po qod PREDNISONE 99255924789 No Longer Active Simon Castillo MD Active GLYBURIDE 5 MG TAB Take one by mouth daily GLYBURIDE 12858218660 No Longer Active Simon Castillo MD Active LEVAQUIN 750 MG TABS 1 po qod x 5 doses LEVOFLOXACIN 28082635311 No Longer Active Simon Castillo MD Active CETIRIZINE HCL 10 MG TABS 1 po qd as needed for allergies CETIRIZINE HCL 18348020744 No Longer Active Simon Castillo MD Active FISH OIL 1000 MG CPDR 1 pill by mouth twice daily for cholesterol OMEGA -3 FATTY ACIDS 62820132188 Active Simon Castillo MD Active BILBERRY CAPS 1 tab daily BILBERRY (VACCINIUM MYRTILLUS) CAPS 06943741298 Active Simon Castillo MD Active ATENOLOL 50 MG TABS Take one by mouth daily ATENOLOL 83328130987 No Longer Active Simon Castillo MD Active FLONASE 50 MCG/ACT SUSP 2 puffs in each nostril daily FLUTICASONE PROPIONATE 86121142399 No Longer Active Simon Castillo MD Active GLYBURIDE 5 MG TAB Take one by mouth daily GLYBURIDE 33567400752 No Longer Active Simon Castillo MD Active SYMBICORT 80-4.5 MCG/ACT AERO 2 puffs twice a day BUDESONIDE-FORMOTEROL FUMARATE 57542030392 No Longer Active Simon Castillo MD Active PREDNISONE 20 MG TAB 2 tabs daily for 4 days, 1 tab daily for 4 days, 1/2 tab daily for 4 days PREDNISONE 28458667867 No Longer Active Simon Castillo MD Active AMOXICILLIN 500 MG CAPS 2 po BID x 10 days AMOXICILLIN 56031145947 No Longer Active Simon Castillo MD Active METFORMIN HCL 1000 MG TABS 1 by mounth twice a day METFORMIN HCL 31093019824 No Longer Active Simon Castillo MD Active LUTEIN-ZEAXANTHIN 6-1 MG TABS Take 2 by mouth daily LUTEIN-ZEAXANTHIN 85552892779 Active Simon Castillo MD Active IBUPROFEN 800 MG TABS Take 1 tab every 6 hrs prn IBUPROFEN 08437270174 No Longer Active Simon Castillo MD Active GLYBURIDE 2.5 MG TABS Take one by mouth daily GLYBURIDE 41150304587 No Longer Active Simon Castillo MD Active LANCETS MISC 2 qd LANCETS 48567446439 Active Pamela Conde Active ACACIA CONTOUR TEST STRP Use with testing twice daily GLUCOSE BLOOD 13756877999 Active Pamela Conde Active ACACIA ASPIRIN 325 MG TABS Take one by mouth daily ASPIRIN 36725755467 Active Pamela Conde Active GLYBURIDE 2.5 MG TABS Take one by mouth daily GLYBURIDE 2.5 MG TABS 995682 GLYBURIDE Inactive PREDNISONE 20 MG TAB 2 tabs daily for 4 days, 1 tab daily for 4 days, 1/2 tab daily for 4 days PREDNISONE 20 MG TAB 592960 PREDNISONE Inactive SYMBICORT 80-4.5 MCG/ACT AERO 2 puffs twice a day SYMBICORT 80-4.5 MCG/ACT AERO BUDESONIDE-FORMOTEROL FUMARATE Inactive FLONASE 50 MCG/ACT SUSP 2 puffs in each nostril daily FLONASE 50 MCG/ACT SUSP 696753 FLUTICASONE PROPIONATE Inactive ATENOLOL 50 MG TABS Take one by mouth daily ATENOLOL 50 MG TABS 547257 ATENOLOL Inactive CETIRIZINE HCL 10 MG TABS 1 po qd as needed for allergies CETIRIZINE HCL 10 MG TABS 6279431 CETIRIZINE HCL Inactive LEVAQUIN 750 MG TABS 1 po qod x 5 doses LEVAQUIN 750 MG TABS 814980 LEVOFLOXACIN Inactive GLYBURIDE 5 MG TAB Take one by mouth daily GLYBURIDE 5 MG TAB 475488 GLYBURIDE Inactive PREDNISONE 5 MG TAB Take one po qod PREDNISONE 5 MG TAB 789533 PREDNISONE Inactive AMOXICILLIN 500 MG CAPS 2 po BID x 10 days AMOXICILLIN 500 MG CAPS 744969 AMOXICILLIN Inactive GLYBURIDE 5 MG TAB Take one by mouth daily GLYBURIDE 5 MG TAB 047705 GLYBURIDE Inactive Immunizations Vaccine Administration Date Value [...] Panel - Chemistry sodium, serum 137 mmol/L 400-978 3228/06/26 potassium, serum 5.7 mmol/L 3.5-5.2 chloride, serum 104 mmol/L 98-107 carbon dioxide, venous blood 21.2 mmol/L 21.0-32.0 blood glucose 129 mg/dL 65-110 calcium, serum 9.0 mg/dL 8.5-10.1 urea nitrogen, blood 67 mg/dL 7-18 creatinine, serum 3.30 mg/dL 0.60-1.30 sodium, serum 140 mmol/L 080-589 5496/07/10 potassium, serum 5.3 mmol/L 3.5-5.2 chloride, serum 105 mmol/L 98-107 carbon dioxide, venous blood 25.5 mmol/L 21.0-32.0 blood glucose 119 mg/dL 65-110 calcium, serum 8.9 mg/dL 8.5-10.1 urea nitrogen, blood 44 mg/dL 7-18 creatinine, serum 2.50 mg/dL 0.60-1.30 Lab Report: CBC W/DIFF, Comp. Metabolic Panel - Chemistry sodium, serum 137 mmol/L 878-986 3559/06/18 potassium, serum 5.3 mmol/L 3.5-5.2 chloride, serum [...] Panel - Chemistry sodium, serum 137 mmol/L 094-626 7023/10/14 potassium, serum 5.6 mmol/L 3.5-5.2 chloride, serum 103 mmol/L 98-107 carbon dioxide, venous blood 24.9 mmol/L 21.0-32.0 blood glucose 200 mg/dL 65-110 urea nitrogen, blood 43 mg/dL 7-18 creatinine, serum 2.60 mg/dL 0.60-1.30 calcium, serum 9.1 mg/dL 8.5-10.1 sodium, serum 139 mmol/L 979-160 3994/11/13 potassium, serum 5.8 mmol/L 3.5-5.2 chloride, serum 105 mmol/L 98-107 carbon dioxide, venous blood 22.2 mmol/L 21.0-32.0 blood glucose 156 mg/dL 65-110 urea nitrogen, blood 49 mg/dL 7-18 creatinine, serum 2.30 mg/dL 0.60-1.30 calcium, serum 9.2 mg/dL 8.5-10.1 Lab Report: CBC, Renal Panel - Hematology erythrocyte (RBC) count 4.79 10^6/MM^3 10*6/mm3 4.69-6.13 hemoglobin, blood 14.1 g/dL 13.5-17.5 hematocrit, blood 43.0 % 41.0-53.0 mean corpuscular volume, RBC 90 fL 80-97 mean corpuscular hemoglobin, RBC 29.5 pg 27.0-31.2 mean corpuscular volume, RBC 91 fL 80-97 hematocrit, blood 42.4 % 41.0-53.0 hemoglobin, blood 13.9 g/dL 13.5-17.5 erythrocyte (RBC) count 4.67 10^6/MM^3 10*6/mm3 4.69-6.13 leukocyte count, blood 9.2 10^3/MM^3 10*3/mm3 4.6-10.2 mean corpuscular hemoglobin, RBC 29.7 pg 27.0-31.2 mean corpuscular hemoglobin concentration, RBC 32.8 G/DL % 31.8- 35.4 red blood cell distribution width 14.7 % 11.6-14.8 platelet count 214 10^3/MM^3 10*3/mm3 428-082 5250/11/13 leukocyte count, blood 9.7 10^3/MM^3 10*3/mm3 4.6-10.2 mean corpuscular hemoglobin concentration, RBC 32.8 G/DL % 31.8- 35.4 red blood cell distribution width 15.1 % 11.6-14.8 platelet count 241 10^3/MM^3 10*3/mm3 142-424 Lab Report: HGBA1C, Basic Metabolic Panel - Chemistry hemoglobin A1C, blood, as % of total hemoglobin 6.9 % 4.3-6.0 sodium, serum 137 mmol/L 558-444 4577/08/21 potassium, serum 5.3 mmol/L 3.5-5.2 chloride, serum [...] 7.2 % 4.3-6.0 sodium, serum 137 mmol/L 403-244 7054/01/23 potassium, serum 5.2 mmol/L 3.5-5.2 chloride, serum [...] Panel - Chemistry sodium, serum 139 mmol/L 997-799 3086/10/21 creatinine, serum 2.60 mg/dL 0.60-1.30 calcium, serum 8.6 mg/dL 8.5-10.1 potassium, serum 4.7 mmol/L 3.5-5.2 chloride, serum 104 mmol/L 98-107 carbon dioxide, venous blood 26.1 mmol/L 21.0-32.0 blood glucose 148 mg/dL 65-110 urea nitrogen, blood 38 mg/dL 7-18 sodium, serum 140 mmol/L 924-505 4496/11/17 creatinine, serum 2.60 mg/dL 0.60-1.30 calcium, serum 9.2 mg/dL 8.5-10.1 potassium, serum 5.0 mmol/L 3.5-5.2 chloride, serum 104 mmol/L 98-107 carbon dioxide, venous blood 24.8 mmol/L 21.0-32.0 blood glucose 146 mg/dL 65-110 urea nitrogen, blood 46 mg/dL 04-08 Lab Report: UADIP W/MICRO, AUTO - Chemistry [...] mg/dL Encounters Code Encounter Date Provider Facility CPT-93569 Level 4 Est. Patient 10:10:09 SECURITIES COUNSELOR Simon Castillo MD [facility] CPT-41039 Level 4 Est. Patient 11:48:19 CDT Simon Castillo MD [facility] CPT-12102 Level 4 Est. Patient 08:59:29 CDT Simon Castillo MD [facility] CPT-43283 Level 4 Est. Patient 10:52:51 SECURITIES COUNSELOR Simon Castillo MD [facility] CPT-85891 Level 4 Est. Patient 11:50:30 CDT Simon Castillo MD [facility] CPT-79792 Level 4 Est. Patient 09:54:46 CDT Simon Castillo MD [facility] CPT-63131 Level 3 Est. Patient 11:10:14 CDT Simon Castillo MD [facility] CPT-89673 Level 4 Est. Patient 09:44:02 CDT Simon Castillo MD [facility] CPT-23825 Level 3 Est. Patient 09:27:48 CDT Simon Castillo MD [facility] CPT-57526 Level 3 Est. Patient 09:58:06 SECURITIES COUNSELOR Simon Castillo MD [facility] CPT-89037 Level 3 Est. Patient 09:51:35 CDT Simon Castillo MD [facility] Procedures Code Procedure Name Date Entry Date Standard Description CPT-63545 Venipuncture Draw Fee 08:07:29 SECURITIES COUNSELOR CPT-55521 Venipuncture Draw Fee 09:02:51 SECURITIES COUNSELOR CPT-46473 Venipuncture Draw Fee 12:45:08 SECURITIES COUNSELOR CPT-72115 Venipuncture Draw Fee 09:25:31 CDT CPT-G0008 Administration of Influenza Virus Vaccine 14:41:29 CDT CPT-88443 Fluzone High-Dose Intramuscular Suspension 14:41:29 CDT CPT-Cryo Cryotherapy 11:48:20 CDT CPT-59468 EKG Trac and Interp 09:21:58 CDT CPT-18782 Chest 2V Frontal and Lat 09:21:58 CDT CPT-Cryo Cryotherapy 10:54:51 SECURITIES COUNSELOR CPT-93582 Administration 2+ single or combination vaccines inc oral 10:42:19 CDT CPT-67926 Administration single or combination vaccine inc oral 10 :42:19 CDT CPT-19334 Pneumovax 10:42:19 CDT CPT-83835 Influenza High Dose age 65+ 10:42:19 CDT CPT-69373 Administration single or combination vaccine inc oral 13 :18:54 CDT CPT-26679 Influenza High Dose age 65+ 13:18:54 CDT CPT-30857 Venipuncture Draw Fee 11:53:16 CDT CPT-67258 LS spine comp w obliq 11:03:13 CDT CPT-Cryo Cryotherapy 08:27:16 SECURITIES COUNSELOR CPT-14532 Administration single or combination vaccine inc oral 10 :56:34 CDT CPT-33614 Influenza High Dose age 65+ 10:56:34 CDT
--- OUTSIDE RECORDS SUMMARY | 2018-03-31 19:41 | XMS REPORT | Clinical Summary ---
Author Author Admin, RAFFI Organization [facility] Address Unknown Phone Unavailable Allergies, Adverse [...] unspecified CHRONIC KIDNEY DISEASE UNSPECIFIED 585.9 Active iSmon Castillo MD Chronic kidney disease, unspecified ABDOMINAL [...] hours as needed for pain TRAMADOL HCL 96250888958 Active Simon Castillo MD Active PREDNISONE 5 MG TAB Take one po qod PREDNISONE 79658341027 No Longer Active Simon Castillo MD Active GLYBURIDE 5 MG TAB Take one by mouth daily GLYBURIDE 69407264012 No Longer Active Simon Castillo MD Active LEVAQUIN 750 MG TABS 1 po qod x 5 doses LEVOFLOXACIN 38557896564 No Longer Active Simon Castillo MD Active CETIRIZINE HCL 10 MG TABS 1 po qd as needed for allergies CETIRIZINE HCL 47409074176 No Longer Active Simon Castillo MD Active FISH OIL 1000 MG CPDR 1 pill by mouth twice daily for cholesterol OMEGA -3 FATTY ACIDS 79384271008 Active Simon Castillo MD Active BILBERRY CAPS 1 tab daily BILBERRY (VACCINIUM MYRTILLUS) CAPS 45844818391 Active Simon Castillo MD Active ATENOLOL 50 MG TABS Take one by mouth daily ATENOLOL 70666703962 No Longer Active Simon Castillo MD Active FLONASE 50 MCG/ACT SUSP 2 puffs in each nostril daily FLUTICASONE PROPIONATE 04377566347 No Longer Active Simon Castillo MD Active GLYBURIDE 5 MG TAB Take one by mouth daily GLYBURIDE 86363806373 No Longer Active Simon Castillo MD Active SYMBICORT 80-4.5 MCG/ACT AERO 2 puffs twice a day BUDESONIDE-FORMOTEROL FUMARATE 95462821778 No Longer Active Simon Castillo MD Active PREDNISONE 20 MG TAB 2 tabs daily for 4 days, 1 tab daily for 4 days, 1/2 tab daily for 4 days PREDNISONE 55859064504 No Longer Active Simon Castillo MD Active AMOXICILLIN 500 MG CAPS 2 po BID x 10 days AMOXICILLIN 62228680863 No Longer Active Simon Castillo MD Active METFORMIN HCL 1000 MG TABS 1 by mounth twice a day METFORMIN HCL 24874287858 Active Simon Castillo MD Active LUTEIN-ZEAXANTHIN 6-1 MG TABS Take 2 by mouth daily LUTEIN-ZEAXANTHIN 09067213471 Active Simon Castillo MD Active IBUPROFEN 800 MG TABS Take 1 tab every 6 hrs prn IBUPROFEN 01481361495 No Longer Active Simon Castillo MD Active LISINOPRIL-HYDROCHLOROTHIAZIDE 20-12.5 MG TABS 1 tab by mouth daily LISINOPRIL-HYDROCHLOROTHIAZIDE 84075919476 Active Simon Castillo MD Active GLYBURIDE 2.5 MG TABS Take one by mouth daily GLYBURIDE 54176611539 No Longer Active Simon Castillo MD Active LANCETS MISC 2 qd LANCETS 73564165663 Active Pamela Conde Active ACACIA CONTOUR TEST STRP Use with testing twice daily GLUCOSE BLOOD 15288314904 Active Pamela Conde Active ACACIA ASPIRIN 325 MG TABS Take one by mouth daily ASPIRIN 85423348192 Active Pamela Conde Active GLYBURIDE 2.5 MG TABS Take one by mouth daily GLYBURIDE 2.5 MG TABS 064498 GLYBURIDE Inactive PREDNISONE 20 MG TAB 2 tabs daily for 4 days, 1 tab daily for 4 days, 1/2 tab daily for 4 days PREDNISONE 20 MG TAB 614323 PREDNISONE Inactive SYMBICORT 80-4.5 MCG/ACT AERO 2 puffs twice a day SYMBICORT 80-4.5 MCG/ACT AERO BUDESONIDE-FORMOTEROL FUMARATE Inactive FLONASE 50 MCG/ACT SUSP 2 puffs in each nostril daily FLONASE 50 MCG/ACT SUSP 283642 FLUTICASONE PROPIONATE Inactive ATENOLOL 50 MG TABS Take one by mouth daily ATENOLOL 50 MG TABS 553393 ATENOLOL Inactive CETIRIZINE HCL 10 MG TABS 1 po qd as needed for allergies CETIRIZINE HCL 10 MG TABS 8470475 CETIRIZINE HCL Inactive LEVAQUIN 750 MG TABS 1 po qod x 5 doses LEVAQUIN 750 MG TABS 452126 LEVOFLOXACIN Inactive GLYBURIDE 5 MG TAB Take one by mouth daily GLYBURIDE 5 MG TAB 678290 GLYBURIDE Inactive PREDNISONE 5 MG TAB Take one po qod PREDNISONE 5 MG TAB 036342 PREDNISONE Inactive AMOXICILLIN 500 MG CAPS 2 po BID x 10 days AMOXICILLIN 500 MG CAPS 077963 AMOXICILLIN Inactive GLYBURIDE 5 MG TAB Take one by mouth daily GLYBURIDE 5 MG TAB 908125 GLYBURIDE Inactive Immunizations Vaccine Administration Date Value [...] Panel - Chemistry sodium, serum 137 mmol/L 555-386 7732/06/26 potassium, serum 5.7 mmol/L 3.5-5.2 chloride, serum 104 mmol/L 98-107 carbon dioxide, venous blood 21.2 mmol/L 21.0-32.0 blood glucose 129 mg/dL 65-110 calcium, serum 9.0 mg/dL 8.5-10.1 urea nitrogen, blood 67 mg/dL 7-18 creatinine, serum 3.30 mg/dL 0.60-1.30 sodium, serum 140 mmol/L 926-790 1397/07/10 potassium, serum 5.3 mmol/L 3.5-5.2 chloride, serum 105 mmol/L 98-107 carbon dioxide, venous blood 25.5 mmol/L 21.0-32.0 blood glucose 119 mg/dL 65-110 calcium, serum 8.9 mg/dL 8.5-10.1 urea nitrogen, blood 44 mg/dL 7-18 creatinine, serum 2.50 mg/dL 0.60-1.30 Lab Report: CBC W/DIFF, Comp. Metabolic Panel - Chemistry sodium, serum 137 mmol/L 133-308 3277/06/18 potassium, serum 5.3 mmol/L 3.5-5.2 chloride, serum [...] 7.2 % 4.3-6.0 sodium, serum 137 mmol/L 711-127 3580/01/23 potassium, serum 5.2 mmol/L 3.5-5.2 chloride, serum [...] mg/dL Encounters Code Encounter Date Provider Facility CPT-15264 Level 4 Est. Patient 11:48:19 CDT Simon Castillo MD [facility] CPT-67870 Level 4 Est. Patient 08:59:29 CDT Simon Castillo MD [facility] CPT-98446 Level 4 Est. Patient 10:52:51 [employer] SE[employer] Simon Castillo MD [facility] CPT-68821 Level 4 Est. Patient 11:50:30 CDT Simon Castillo MD [facility] CPT-80364 Level 4 Est. Patient 09:54:46 CDT Simon Castillo MD [facility] CPT-47181 Level 3 Est. Patient 11:10:14 CDT Simon Castillo MD [facility] CPT-37648 Level 4 Est. Patient 09:44:02 CDT Simon Castillo MD [facility] CPT-34903 Level 3 Est. Patient 09:27:48 CDT Simon Castillo MD [facility] CPT-02295 Level 3 Est. Patient 09:58:06 [employer] Simon Castillo MD [facility] CPT-08572 Level 3 Est. Patient 09:51:35 CDT Simon Castillo MD [facility] Procedures Code Procedure Name Date Entry Date Standard Description CPT-Cryo Cryotherapy 11:48:20 CDT CPT-01529 EKG Trac and Interp 09:21:58 CDT CPT-62081 Chest 2V Frontal and Lat 09:21:58 CDT CPT-Cryo Cryotherapy 10:54:51 [employer] CPT-39266 Administration 2+ single or combination vaccines inc oral 10:42:19 CDT CPT-93073 Administration single or combination vaccine inc oral 10 :42:19 CDT CPT-62379 Pneumovax 10:42:19 CDT CPT-68708 Influenza High Dose age 65+ 10:42:19 CDT CPT-94368 Administration single or combination vaccine inc oral 13 :18:54 CDT CPT-93055 Influenza High Dose age 65+ 13:18:54 CDT CPT-87018 Venipuncture Draw Fee 11:53:16 CDT CPT-82554 LS spine comp w obliq 11:03:13 CDT CPT-Cryo Cryotherapy 08:27:16 [employer] CPT-16928 Administration single or combination vaccine inc oral 10 :56:34 CDT CPT-04775 Influenza High Dose age 65+ 10:56:34 CDT
--- OUTSIDE RECORDS SUMMARY | 2018-03-31 19:42 | XMS REPORT | Clinical Summary ---
Author Author Admin, RAFFI Organization [facility] Address Unknown Phone Allergies, Adverse Reactions, [...] hazards to health SEBORRHEIC KERATOSIS 702.19 Resolved Smion Castillo MD Other seborrheic keratosis BRONCHITIS, ACUTE [...] 1 po qod x 5 doses LEVOFLOXACIN 64926883739 Active Simon Castillo MD Active CETIRIZINE HCL 10 MG TABS 1 po qd as needed for allergies CETIRIZINE HCL 42739899502 No Longer Active Simon Castillo MD Active FISH OIL 1000 MG CPDR 1 pill by mouth twice daily for cholesterol OMEGA -3 FATTY ACIDS 55190018625 Active Simon Castillo MD Active BILBERRY CAPS 1 tab daily BILBERRY (VACCINIUM MYRTILLUS) CAPS 58198534016 Active Simon Castillo MD Active PREDNISONE 5 MG TAB Take one po qod PREDNISONE 78746988711 Active Simon Castillo MD Active ATENOLOL 50 MG TABS Take one by mouth daily ATENOLOL 71459715508 No Longer Active Simon Castillo MD Active GLYBURIDE 5 MG TAB Take one by mouth daily GLYBURIDE 21079474667 Active Jami Dickey Active FLONASE 50 MCG/ACT SUSP 2 puffs in each nostril daily FLUTICASONE PROPIONATE 58796125605 No Longer Active Simon Castillo MD Active GLYBURIDE 5 MG TAB Take one by mouth daily GLYBURIDE 27418806735 No Longer Active Simon Castillo MD Active SYMBICORT 80-4.5 MCG/ACT AERO 2 puffs twice a day BUDESONIDE-FORMOTEROL FUMARATE 31648659447 No Longer Active Simon Castillo MD Active PREDNISONE 20 MG TAB 2 tabs daily for 4 days, 1 tab daily for 4 days, 1/2 tab daily for 4 days PREDNISONE 58766491909 No Longer Active Simon Castillo MD Active AMOXICILLIN 500 MG CAPS 2 po BID x 10 days AMOXICILLIN 24388151330 No Longer Active Simon Castillo MD Active METFORMIN HCL 1000 MG TABS 1 by mount twice a day METFORMIN HCL 17721492394 Active Simon Castillo MD Active LUTEIN-ZEAXANTHIN 6-1 MG TABS Take 2 by mouth daily LUTEIN-ZEAXANTHIN 43415576062 Active Simon Castillo MD Active IBUPROFEN 800 MG TABS Take 1 tab every 6 hrs prn IBUPROFEN 42903433866 Active Simon Castillo MD Active LISINOPRIL-HYDROCHLOROTHIAZIDE 20-12.5 MG TABS 1 tab by mouth daily LISINOPRIL-HYDROCHLOROTHIAZIDE 13708129809 Active Simon Castillo MD Active GLYBURIDE 2.5 MG TABS Take one by mouth daily GLYBURIDE 53376942779 No Longer Active Simon Castillo MD Active LANCETS MISC 2 qd LANCETS 50979385708 Active Pamela Conde Active apstrata CONTOUR TEST STRP Use with testing twice daily GLUCOSE BLOOD 81168339487 Active Pamela Conde Active ACACIA ASPIRIN 325 MG TABS Take one by mouth daily ASPIRIN 17665430956 Active Pamela Conde Active GLYBURIDE 2.5 MG TABS Take one by mouth daily GLYBURIDE 2.5 MG TABS 483740 GLYBURIDE Inactive PREDNISONE 20 MG TAB 2 tabs daily for 4 days, 1 tab daily for 4 days, 1/2 tab daily for 4 days PREDNISONE 20 MG TAB 856847 PREDNISONE Inactive SYMBICORT 80-4.5 MCG/ACT AERO 2 puffs twice a day SYMBICORT 80-4.5 MCG/ACT AERO BUDESONIDE-FORMOTEROL FUMARATE Inactive FLONASE 50 MCG/ACT SUSP 2 puffs in each nostril daily FLONASE 50 MCG/ACT SUSP 332748 FLUTICASONE PROPIONATE Inactive ATENOLOL 50 MG TABS Take one by mouth daily ATENOLOL 50 MG TABS 826085 ATENOLOL Inactive CETIRIZINE HCL 10 MG TABS 1 po qd as needed for allergies CETIRIZINE HCL 10 MG TABS 2681580 CETIRIZINE HCL Inactive AMOXICILLIN 500 MG CAPS 2 po BID x 10 days AMOXICILLIN 500 MG CAPS 798196 AMOXICILLIN Inactive GLYBURIDE 5 MG TAB Take one by mouth daily GLYBURIDE 5 MG TAB 189742 GLYBURIDE Inactive Immunizations Vaccine Administration Date Value [...] Panel - Chemistry sodium, serum 137 mmol/L 753-391 0865/06/26 potassium, serum 5.7 mmol/L 3.5-5.2 chloride, serum 104 mmol/L 98-107 carbon dioxide, venous blood 21.2 mmol/L 21.0-32.0 blood glucose 129 mg/dL 65-110 calcium, serum 9.0 mg/dL 8.5-10.1 urea nitrogen, blood 67 mg/dL 7-18 creatinine, serum 3.30 mg/dL 0.60-1.30 sodium, serum 140 mmol/L 654-098 9393/07/10 potassium, serum 5.3 mmol/L 3.5-5.2 chloride, serum 105 mmol/L 98-107 carbon dioxide, venous blood 25.5 mmol/L 21.0-32.0 blood glucose 119 mg/dL 65-110 calcium, serum 8.9 mg/dL 8.5-10.1 urea nitrogen, blood 44 mg/dL 7-18 creatinine, serum 2.50 mg/dL 0.60-1.30 Lab Report: CBC W/DIFF, Comp. Metabolic Panel - Chemistry sodium, serum 137 mmol/L 638-951 1144/06/18 potassium, serum 5.3 mmol/L 3.5-5.2 chloride, serum [...] (AUTO) - Chemistry sodium, serum 141 mmol/L 139-429 0015/07/29 potassium, serum 5.7 mmol/L 3.5-5.2 chloride, serum [...] Panel, MICROALBUMIN, HGBA1C, UADIP (AUTO) - Hematology mean corpuscular volume, RBC 92 fL 80-97 hematocrit, blood 43.0 % 41.0-53.0 hemoglobin, blood 13.7 g/dL 13.5-17.5 erythrocyte (RBC) count 4.67 10^6/MM^3 10*6/mm3 4.69-6.13 leukocyte count, blood 11.5 10^3/MM^3 10*3/mm3 4.6-10.2 mean corpuscular hemoglobin, RBC 29.3 pg 27.0-31.2 mean corpuscular hemoglobin concentration, RBC 31.8 G/DL % 31.8- 35.4 red blood cell distribution width 14.6 % 11.6-14.8 platelet count 205 10^3/MM^3 10*3/mm3 142-424 Lab Report: CBC, Comp. Metabolic Panel, MICROALBUMIN, HGBA1C, UADIP (AUTO) - Lab microalbumin, urine 30 0-19 Lab Report: CBC, Comp. Metabolic Panel, MICROALBUMIN, HGBA1C, UADIP (AUTO) - Urinalysis urine color Yellow Colorless;Lightyellow;Straw;Yellow appearance, urine Clear Clear specific gravity, urine 1.020 1.000-1.030 pH, urine, semiquantitative 5.5 5.0-8.5 urobilinogen, [...] 7.2 % 4.3-6.0 sodium, serum 137 mmol/L 493-298 2719/01/23 potassium, serum 5.2 mmol/L 3.5-5.2 chloride, serum [...] mg/dL Encounters Code Encounter Date Provider Facility CPT-07476 Level 4 Est. Patient 08:59:29 CDT Simon Castillo MD [facility] CPT-55573 Level 4 Est. Patient 10:52:51 [employer] Simon Castillo MD [facility] CPT-58846 Level 4 Est. Patient 11:50:30 CDT Simon Castillo MD [facility] CPT-36542 Level 4 Est. Patient 09:54:46 CDT Simon Castillo MD [facility] CPT-79923 Level 3 Est. Patient 11:10:14 CDT Simon Castillo MD [facility] CPT-47232 Level 4 Est. Patient 09:44:02 CDT Simon Castillo MD [facility] CPT-50685 Level 3 Est. Patient 09:27:48 CDT Simon Castillo MD [facility] CPT-47568 Level 3 Est. Patient 09:58:06 [employer] Simon Castillo MD [facility] CPT-23241 Level 3 Est. Patient 09:51:35 CDT Simon Castillo MD [facility] Procedures Code Procedure Name Date Entry Date Standard Description CPT-77573 EKG Trac and Interp 09:21:58 CDT CPT-71050 Chest 2V Frontal and Lat 09:21:58 CDT CPT-Cryo Cryotherapy 10:54:51 [employer] CPT-10649 Administration 2+ single or combination vaccines inc oral 10:42:19 CDT CPT-32935 Administration single or combination vaccine inc oral 10 :42:19 CDT CPT-21222 Pneumovax 10:42:19 CDT CPT-81866 Influenza High Dose age 65+ 10:42:19 CDT CPT-70763 Administration single or combination vaccine inc oral 13 :18:54 CDT CPT-61147 Influenza High Dose age 65+ 13:18:54 CDT CPT-17797 Venipuncture Draw Fee 11:53:16 CDT CPT-18121 LS spine comp w obliq 11:03:13 CDT CPT-Cryo Cryotherapy 08:27:16 [employer] CPT-91802 Administration single or combination vaccine inc oral 10 :56:34 CDT CPT-52226 Influenza High Dose age 65+ 10:56:34 CDT
--- OUTSIDE RECORDS SUMMARY | 2018-03-31 19:43 | XMS REPORT | Clinical Summary ---
Author Author Admin, RAFFI Organization [facility] Address Unknown Phone Allergies, Adverse [...] 1 po qod x 5 doses LEVOFLOXACIN 24769051303 Active Simon Castillo MD Active CETIRIZINE HCL 10 MG TABS 1 po qd as needed for allergies CETIRIZINE HCL 35604466777 No Longer Active Simon Castillo MD Active FISH OIL 1000 MG CPDR 1 pill by mouth twice daily for cholesterol OMEGA -3 FATTY ACIDS 55492491289 Active Simon Castillo MD Active BILBERRY CAPS 1 tab daily BILBERRY (VACCINIUM MYRTILLUS) CAPS 34629811459 Active Simon Castillo MD Active PREDNISONE 5 MG TAB Take one po qod PREDNISONE 83956959116 Active Simon Castillo MD Active ATENOLOL 50 MG TABS Take one by mouth daily ATENOLOL 56444055318 No Longer Active Simon Castillo MD Active GLYBURIDE 5 MG TAB Take one by mouth daily GLYBURIDE 21049178514 Active Jami Dickey Active FLONASE 50 MCG/ACT SUSP 2 puffs in each nostril daily FLUTICASONE PROPIONATE 90795938614 No Longer Active Simon Castillo MD Active GLYBURIDE 5 MG TAB Take one by mouth daily GLYBURIDE 63930061455 No Longer Active Simon Castillo MD Active SYMBICORT 80-4.5 MCG/ACT AERO 2 puffs twice a day BUDESONIDE-FORMOTEROL FUMARATE 83829335685 No Longer Active Simon Castillo MD Active PREDNISONE 20 MG TAB 2 tabs daily for 4 days, 1 tab daily for 4 days, 1/2 tab daily for 4 days PREDNISONE 01634747919 No Longer Active Simon Castillo MD Active AMOXICILLIN 500 MG CAPS 2 po BID x 10 days AMOXICILLIN 32628016712 No Longer Active Simon Castillo MD Active METFORMIN HCL 1000 MG TABS 1 by mount twice a day METFORMIN HCL 12634854927 Active Simon Castillo MD Active LUTEIN-ZEAXANTHIN 6-1 MG TABS Take 2 by mouth daily LUTEIN-ZEAXANTHIN 21150241122 Active Simon Castillo MD Active IBUPROFEN 800 MG TABS Take 1 tab every 6 hrs prn IBUPROFEN 50345753837 Active Simon Castillo MD Active LISINOPRIL-HYDROCHLOROTHIAZIDE 20-12.5 MG TABS 1 tab by mouth daily LISINOPRIL-HYDROCHLOROTHIAZIDE 02400536277 Active Simon Castillo MD Active GLYBURIDE 2.5 MG TABS Take one by mouth daily GLYBURIDE 47116882246 No Longer Active Simon Castillo MD Active LANCETS MISC 2 qd LANCETS 66471058359 Active Pamela Conde Active [email or web address] CONTOUR TEST STRP Use with testing twice daily GLUCOSE BLOOD 44201521941 Active Pamela Conde Active ACACIA ASPIRIN 325 MG TABS Take one by mouth daily ASPIRIN 27867922488 Active Pamela Conde Active GLYBURIDE 2.5 MG TABS Take one by mouth daily GLYBURIDE 2.5 MG TABS 624067 GLYBURIDE Inactive PREDNISONE 20 MG TAB 2 tabs daily for 4 days, 1 tab daily for 4 days, 1/2 tab daily for 4 days PREDNISONE 20 MG TAB 353593 PREDNISONE Inactive SYMBICORT 80-4.5 MCG/ACT AERO 2 puffs twice a day SYMBICORT 80-4.5 MCG/ACT AERO BUDESONIDE-FORMOTEROL FUMARATE Inactive FLONASE 50 MCG/ACT SUSP 2 puffs in each nostril daily FLONASE 50 MCG/ACT SUSP 829165 FLUTICASONE PROPIONATE Inactive ATENOLOL 50 MG TABS Take one by mouth daily ATENOLOL 50 MG TABS 751807 ATENOLOL Inactive CETIRIZINE HCL 10 MG TABS 1 po qd as needed for allergies CETIRIZINE HCL 10 MG TABS 7414948 CETIRIZINE HCL Inactive AMOXICILLIN 500 MG CAPS 2 po BID x 10 days AMOXICILLIN 500 MG CAPS 596137 AMOXICILLIN Inactive GLYBURIDE 5 MG TAB Take one by mouth daily GLYBURIDE 5 MG TAB 475932 GLYBURIDE Inactive Immunizations Vaccine Administration Date Value [...] Panel - Chemistry sodium, serum 137 mmol/L 940-841 9900/06/18 potassium, serum 5.3 mmol/L 3.5-5.2 chloride, serum [...] (AUTO) - Chemistry sodium, serum 141 mmol/L 309-916 4845/07/29 potassium, serum 5.7 mmol/L 3.5-5.2 chloride, serum [...] 7.2 % 4.3-6.0 sodium, serum 137 mmol/L 517-399 6255/01/23 potassium, serum 5.2 mmol/L 3.5-5.2 chloride, serum [...] mg/dL Encounters Code Encounter Date Provider Facility CPT-87531 Level 4 Est. Patient 08:59:29 CDT Simon Castillo MD [facility] CPT-22048 Level 4 Est. 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 Patient 11:50:30 CDT Simon Castillo MD [facility] CPT-77665 Level 4 Est. Patient 09:54:46 CDT Simon Castillo MD [facility] CPT-31292 Level 3 Est. Patient 11:10:14 CDT Simon Castillo MD [facility] CPT-98424 Level 4 Est. Patient 09:44:02 CDT Simon Castillo MD [facility] CPT-02523 Level 3 Est. Patient 09:27:48 CDT Simon Castillo MD [facility] CPT-85788 Level 3 Est. 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 Patient 09:51:35 CDT Simon Castillo MD [facility] Procedures Code Procedure Name Date Entry Date Standard Description CPT-06537 EKG Trac and Interp 09:21:58 CDT CPT-22246 Chest 2V Frontal and Lat 09:21:58 CDT CPT-Cryo Cryotherapy 10:54:51 [employer] CPT-04204 Administration 2+ single or combination vaccines inc oral 10:42:19 CDT CPT-17024 Administration single or combination vaccine inc oral 10 :42:19 CDT CPT-11340 Pneumovax 10:42:19 CDT CPT-86235 Influenza High Dose age 65+ 10:42:19 CDT CPT-58116 Administration single or combination vaccine inc oral 13 :18:54 CDT CPT-35585 Influenza High Dose age 65+ 13:18:54 CDT CPT-29693 Venipuncture Draw Fee 11:53:16 CDT CPT-92980 LS spine comp w obliq 11:03:13 CDT CPT-Cryo Cryotherapy 08:27:16 [employer] CPT-69654 Administration single or combination vaccine inc oral 10 :56:34 CDT CPT-41164 Influenza High Dose age 65+ 10:56:34 CDT
--- OUTSIDE RECORDS SUMMARY | 2018-03-31 19:43 | XMS REPORT | Clinical Summary ---
Author Author Admin, RAFFI Organization [facility] Address Unknown Phone Unavailable Allergies, Adverse [...] hours as needed for pain TRAMADOL HCL 38502040787 Active Simon Castillo MD Active PREDNISONE 5 MG TAB Take one po qod PREDNISONE 36874097267 No Longer Active Simon Castillo MD Active GLYBURIDE 5 MG TAB Take one by mouth daily GLYBURIDE 05490545421 No Longer Active Simon Castillo MD Active LEVAQUIN 750 MG TABS 1 po qod x 5 doses LEVOFLOXACIN 36114170280 No Longer Active Simon Castillo MD Active CETIRIZINE HCL 10 MG TABS 1 po qd as needed for allergies CETIRIZINE HCL 80257410043 No Longer Active Simon Castillo MD Active FISH OIL 1000 MG CPDR 1 pill by mouth twice daily for cholesterol OMEGA -3 FATTY ACIDS 93132993102 Active Simon Castillo MD Active BILBERRY CAPS 1 tab daily BILBERRY (VACCINIUM MYRTILLUS) CAPS 12127409618 Active Simon Castillo MD Active ATENOLOL 50 MG TABS Take one by mouth daily ATENOLOL 97527728411 No Longer Active Simon Castillo MD Active FLONASE 50 MCG/ACT SUSP 2 puffs in each nostril daily FLUTICASONE PROPIONATE 78915848933 No Longer Active Simon Castillo MD Active GLYBURIDE 5 MG TAB Take one by mouth daily GLYBURIDE 08397704869 No Longer Active Simon Castillo MD Active SYMBICORT 80-4.5 MCG/ACT AERO 2 puffs twice a day BUDESONIDE-FORMOTEROL FUMARATE 03197542160 No Longer Active Simon Castillo MD Active PREDNISONE 20 MG TAB 2 tabs daily for 4 days, 1 tab daily for 4 days, 1/2 tab daily for 4 days PREDNISONE 33864953077 No Longer Active Simon Castillo MD Active AMOXICILLIN 500 MG CAPS 2 po BID x 10 days AMOXICILLIN 70007020734 No Longer Active Simon Castillo MD Active METFORMIN HCL 1000 MG TABS 1 by mounth twice a day METFORMIN HCL 14466308481 Active Simon Castillo MD Active LUTEIN-ZEAXANTHIN 6-1 MG TABS Take 2 by mouth daily LUTEIN-ZEAXANTHIN 30890600426 Active Simon Castillo MD Active IBUPROFEN 800 MG TABS Take 1 tab every 6 hrs prn IBUPROFEN 31868307987 No Longer Active Simon Castillo MD Active LISINOPRIL-HYDROCHLOROTHIAZIDE 20-12.5 MG TABS 1 tab by mouth daily LISINOPRIL-HYDROCHLOROTHIAZIDE 51816653168 Active Simon Castillo MD Active GLYBURIDE 2.5 MG TABS Take one by mouth daily GLYBURIDE 26008403679 No Longer Active Simon Castillo MD Active LANCETS MISC 2 qd LANCETS 44644612307 Active Pamela Conde Active ACACIA CONTOUR TEST STRP Use with testing twice daily GLUCOSE BLOOD 07994842747 Active Pamela Conde Active ACACIA ASPIRIN 325 MG TABS Take one by mouth daily ASPIRIN 55009630095 Active Pamela Conde Active GLYBURIDE 2.5 MG TABS Take one by mouth daily GLYBURIDE 2.5 MG TABS 097318 GLYBURIDE Inactive PREDNISONE 20 MG TAB 2 tabs daily for 4 days, 1 tab daily for 4 days, 1/2 tab daily for 4 days PREDNISONE 20 MG TAB 305332 PREDNISONE Inactive SYMBICORT 80-4.5 MCG/ACT AERO 2 puffs twice a day SYMBICORT 80-4.5 MCG/ACT AERO BUDESONIDE-FORMOTEROL FUMARATE Inactive FLONASE 50 MCG/ACT SUSP 2 puffs in each nostril daily FLONASE 50 MCG/ACT SUSP 417675 FLUTICASONE PROPIONATE Inactive ATENOLOL 50 MG TABS Take one by mouth daily ATENOLOL 50 MG TABS 284057 ATENOLOL Inactive CETIRIZINE HCL 10 MG TABS 1 po qd as needed for allergies CETIRIZINE HCL 10 MG TABS 2881738 CETIRIZINE HCL Inactive LEVAQUIN 750 MG TABS 1 po qod x 5 doses LEVAQUIN 750 MG TABS 672516 LEVOFLOXACIN Inactive GLYBURIDE 5 MG TAB Take one by mouth daily GLYBURIDE 5 MG TAB 385673 GLYBURIDE Inactive PREDNISONE 5 MG TAB Take one po qod PREDNISONE 5 MG TAB 001950 PREDNISONE Inactive AMOXICILLIN 500 MG CAPS 2 po BID x 10 days AMOXICILLIN 500 MG CAPS 006602 AMOXICILLIN Inactive GLYBURIDE 5 MG TAB Take one by mouth daily GLYBURIDE 5 MG TAB 035641 GLYBURIDE Inactive Immunizations Vaccine Administration Date Value [...] Panel - Chemistry sodium, serum 137 mmol/L 457-370 5777/06/26 potassium, serum 5.7 mmol/L 3.5-5.2 chloride, serum 104 mmol/L 98-107 carbon dioxide, venous blood 21.2 mmol/L 21.0-32.0 blood glucose 129 mg/dL 65-110 calcium, serum 9.0 mg/dL 8.5-10.1 urea nitrogen, blood 67 mg/dL 7-18 creatinine, serum 3.30 mg/dL 0.60-1.30 sodium, serum 140 mmol/L 213-590 0612/07/10 potassium, serum 5.3 mmol/L 3.5-5.2 chloride, serum 105 mmol/L 98-107 carbon dioxide, venous blood 25.5 mmol/L 21.0-32.0 blood glucose 119 mg/dL 65-110 calcium, serum 8.9 mg/dL 8.5-10.1 urea nitrogen, blood 44 mg/dL 7-18 creatinine, serum 2.50 mg/dL 0.60-1.30 Lab Report: CBC W/DIFF, Comp. Metabolic Panel - Chemistry sodium, serum 137 mmol/L 047-563 4427/06/18 potassium, serum 5.3 mmol/L 3.5-5.2 chloride, serum [...] 7.2 % 4.3-6.0 sodium, serum 137 mmol/L 893-616 1923/01/23 potassium, serum 5.2 mmol/L 3.5-5.2 chloride, serum [...] mg/dL Encounters Code Encounter Date Provider Facility CPT-19047 Level 4 Est. Patient 11:48:19 CDT Simon Castillo MD [facility] CPT-43603 Level 4 Est. Patient 08:59:29 CDT Simon Castillo MD [facility] CPT-12122 Level 4 Est. 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 Patient 11:50:30 CDT Simon Castillo MD [facility] CPT-60492 Level 4 Est. Patient 09:54:46 CDT Simon Castillo MD [facility] CPT-14968 Level 3 Est. Patient 11:10:14 CDT Simon Castillo MD [facility] CPT-55117 Level 4 Est. Patient 09:44:02 CDT Simon Castillo MD [facility] CPT-25054 Level 3 Est. Patient 09:27:48 CDT Simon Castillo MD [facility] CPT-43361 Level 3 Est. 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 CPT-53527 Administration 2+ single or combination vaccines inc oral 10:42:19 CDT CPT-02165 Administration single or combination vaccine inc oral 10 :42:19 CDT CPT-70593 Pneumovax 10:42:19 CDT CPT-31310 Influenza High Dose age 65+ 10:42:19 CDT CPT-49281 Administration single or combination vaccine inc oral 13 :18:54 CDT CPT-91568 Influenza High Dose age 65+ 13:18:54 CDT CPT-21847 Venipuncture Draw Fee 11:53:16 CDT CPT-83697 LS spine comp w obliq 11:03:13 CDT CPT-Cryo Cryotherapy 08:27:16 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
--- OUTSIDE RECORDS SUMMARY | 2018-03-31 19:44 | XMS REPORT | Clinical Summary ---
Author Author Admin, RAFFI Organization [facility] Address Unknown Phone Unavailable Allergies, Adverse [...] 6.25 MG TABS 1 po BID CARVEDILOL 80543480131 Active Simon Castillo MD Active LISINOPRIL-HYDROCHLOROTHIAZIDE 20-12.5 MG TABS 1/2 tab by mouth daily LISINOPRIL-HYDROCHLOROTHIAZIDE 00952751857 Active Simon Castillo MD Active PREDNISONE 5 MG TABS 1 po qod PREDNISONE 18272248715 Active Simon Castillo MD Active TRAMADOL HCL 50 MG TABS 1-2 tablets every 6 hours as needed for pain TRAMADOL HCL 68279466156 Active Simon Castillo MD Active PREDNISONE 5 MG TAB Take one po qod PREDNISONE 81981199949 No Longer Active Simon Castillo MD Active GLYBURIDE 5 MG TAB Take one by mouth daily GLYBURIDE 93076134484 No Longer Active iSmon Castillo MD Active LEVAQUIN 750 MG TABS 1 po qod x 5 doses LEVOFLOXACIN 37644139020 No Longer Active Simon Castillo MD Active CETIRIZINE HCL 10 MG TABS 1 po qd as needed for allergies CETIRIZINE HCL 22638697329 No Longer Active Simon Castillo MD Active FISH OIL 1000 MG CPDR 1 pill by mouth twice daily for cholesterol OMEGA -3 FATTY ACIDS 87551659726 Active Simon Castillo MD Active BILBERRY CAPS 1 tab daily BILBERRY (VACCINIUM MYRTILLUS) CAPS 72668997484 Active Simon Castillo MD Active ATENOLOL 50 MG TABS Take one by mouth daily ATENOLOL 32742315428 No Longer Active Simon Castillo MD Active FLONASE 50 MCG/ACT SUSP 2 puffs in each nostril daily FLUTICASONE PROPIONATE 53907635447 No Longer Active Simon Castillo MD Active GLYBURIDE 5 MG TAB Take one by mouth daily GLYBURIDE 79200091571 No Longer Active Simon Castillo MD Active SYMBICORT 80-4.5 MCG/ACT AERO 2 puffs twice a day BUDESONIDE-FORMOTEROL FUMARATE 92415329642 No Longer Active Simon Castillo MD Active PREDNISONE 20 MG TAB 2 tabs daily for 4 days, 1 tab daily for 4 days, 1/2 tab daily for 4 days PREDNISONE 22150013254 No Longer Active Simon Castillo MD Active AMOXICILLIN 500 MG CAPS 2 po BID x 10 days AMOXICILLIN 99044916737 No Longer Active Simon Castillo MD Active METFORMIN HCL 1000 MG TABS 1 by mounth twice a day METFORMIN HCL 93085739836 Active Simon Castillo MD Active LUTEIN-ZEAXANTHIN 6-1 MG TABS Take 2 by mouth daily LUTEIN-ZEAXANTHIN 16786543887 Active Simon Castillo MD Active IBUPROFEN 800 MG TABS Take 1 tab every 6 hrs prn IBUPROFEN 86944771088 No Longer Active Simon Castillo MD Active GLYBURIDE 2.5 MG TABS Take one by mouth daily GLYBURIDE 73618602257 No Longer Active Simon Castillo MD Active LANCETS MISC 2 qd LANCETS 05525967199 Active Pamela Conde Active ACACIA CONTOUR TEST STRP Use with testing twice daily GLUCOSE BLOOD 88029673948 Active Pamela Cnode Active ACACIA ASPIRIN 325 MG TABS Take one by mouth daily ASPIRIN 24238775096 Active Pamela Conde Active GLYBURIDE 2.5 MG TABS Take one by mouth daily GLYBURIDE 2.5 MG TABS 656620 GLYBURIDE Inactive PREDNISONE 20 MG TAB 2 tabs daily for 4 days, 1 tab daily for 4 days, 1/2 tab daily for 4 days PREDNISONE 20 MG TAB 129366 PREDNISONE Inactive SYMBICORT 80-4.5 MCG/ACT AERO 2 puffs twice a day SYMBICORT 80-4.5 MCG/ACT AERO BUDESONIDE-FORMOTEROL FUMARATE Inactive FLONASE 50 MCG/ACT SUSP 2 puffs in each nostril daily FLONASE 50 MCG/ACT SUSP 322599 FLUTICASONE PROPIONATE Inactive ATENOLOL 50 MG TABS Take one by mouth daily ATENOLOL 50 MG TABS 711647 ATENOLOL Inactive CETIRIZINE HCL 10 MG TABS 1 po qd as needed for allergies CETIRIZINE HCL 10 MG TABS 3464122 CETIRIZINE HCL Inactive LEVAQUIN 750 MG TABS 1 po qod x 5 doses LEVAQUIN 750 MG TABS 596009 LEVOFLOXACIN Inactive GLYBURIDE 5 MG TAB Take one by mouth daily GLYBURIDE 5 MG TAB 836083 GLYBURIDE Inactive PREDNISONE 5 MG TAB Take one po qod PREDNISONE 5 MG TAB 095709 PREDNISONE Inactive AMOXICILLIN 500 MG CAPS 2 po BID x 10 days AMOXICILLIN 500 MG CAPS 358784 AMOXICILLIN Inactive GLYBURIDE 5 MG TAB Take one by mouth daily GLYBURIDE 5 MG TAB 893086 GLYBURIDE Inactive Immunizations Vaccine Administration Date Value [...] Panel - Chemistry sodium, serum 137 mmol/L 836-160 0408/06/26 potassium, serum 5.7 mmol/L 3.5-5.2 chloride, serum 104 mmol/L 98-107 carbon dioxide, venous blood 21.2 mmol/L 21.0-32.0 blood glucose 129 mg/dL 65-110 calcium, serum 9.0 mg/dL 8.5-10.1 urea nitrogen, blood 67 mg/dL 7-18 creatinine, serum 3.30 mg/dL 0.60-1.30 sodium, serum 140 mmol/L 086-716 1295/07/10 potassium, serum 5.3 mmol/L 3.5-5.2 chloride, serum 105 mmol/L 98-107 carbon dioxide, venous blood 25.5 mmol/L 21.0-32.0 blood glucose 119 mg/dL 65-110 calcium, serum 8.9 mg/dL 8.5-10.1 urea nitrogen, blood 44 mg/dL 7-18 creatinine, serum 2.50 mg/dL 0.60-1.30 Lab Report: CBC W/DIFF, Comp. Metabolic Panel - Chemistry sodium, serum 137 mmol/L 180-144 6575/06/18 potassium, serum 5.3 mmol/L 3.5-5.2 chloride, serum [...] Panel - Chemistry sodium, serum 137 mmol/L 407-382 2441/10/14 potassium, serum 5.6 mmol/L 3.5-5.2 chloride, serum 103 mmol/L 98-107 carbon dioxide, venous blood 24.9 mmol/L 21.0-32.0 blood glucose 200 mg/dL 65-110 urea nitrogen, blood 43 mg/dL 7-18 creatinine, serum 2.60 mg/dL 0.60-1.30 calcium, serum 9.1 mg/dL 8.5-10.1 sodium, serum 139 mmol/L 112-872 4453/11/13 potassium, serum 5.8 mmol/L 3.5-5.2 chloride, serum [...] % 11.6-14.8 platelet count 214 10^3/MM^3 10*3/mm3 578-566 6307/11/13 leukocyte count, blood 9.7 10^3/MM^3 10*3/mm3 4.6-10.2 [...] 6.9 % 4.3-6.0 sodium, serum 137 mmol/L 313-869 0216/08/21 potassium, serum 5.3 mmol/L 3.5-5.2 chloride, serum [...] 7.2 % 4.3-6.0 sodium, serum 137 mmol/L 553-914 7491/01/23 potassium, serum 5.2 mmol/L 3.5-5.2 chloride, serum [...] Panel - Chemistry sodium, serum 139 mmol/L 438-546 7472/10/21 potassium, serum 4.7 mmol/L 3.5-5.2 chloride, serum 104 mmol/L 98-107 carbon dioxide, venous blood 26.1 mmol/L 21.0-32.0 blood glucose 148 mg/dL 65-110 urea nitrogen, blood 38 mg/dL 7-18 creatinine, serum 2.60 mg/dL 0.60-1.30 calcium, serum 8.6 mg/dL 8.5-10.1 sodium, serum 140 mmol/L 444-387 9496/11/17 potassium, serum 5.0 mmol/L 3.5-5.2 chloride, serum [...] mg/dL Encounters Code Encounter Date Provider Facility CPT-85093 Level 4 Est. 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 Patient 11:48:19 CDT Simon Castillo MD [facility] CPT-34241 Level 4 Est. Patient 08:59:29 CDT Simon Castillo MD [facility] CPT-71367 Level 4 Est. 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 Patient 11:50:30 CDT Simon Castillo MD [facility] CPT-62058 Level 4 Est. Patient 09:54:46 CDT Simon Castillo MD [facility] CPT-09579 Level 3 Est. Patient 11:10:14 CDT Simon Castillo MD [facility] CPT-37812 Level 4 Est. Patient 09:44:02 CDT Simon Castillo MD [facility] CPT-42459 Level 3 Est. Patient 09:27:48 CDT Simon Castillo MD [facility] CPT-87957 Level 3 Est. 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 Patient 09:51:35 CDT Simon Castillo MD [facility] Procedures Code Procedure Name Date Entry Date Standard Description CPT-27791 Venipuncture Draw Fee 09:02:51 RAILROAD YARD WORKER CPT-14485 Venipuncture Draw Fee 12:45:08 RAILROAD YARD WORKER CPT-44373 Venipuncture Draw Fee 09:25:31 CDT CPT-G0008 Administration of Influenza Virus Vaccine 14:41:29 CDT CPT-13234 Fluzone High-Dose Intramuscular Suspension 14:41:29 CDT CPT-Cryo Cryotherapy 11:48:20 CDT CPT-21129 EKG Trac and Interp 09:21:58 CDT CPT-06646 Chest 2V Frontal and Lat 09:21:58 CDT CPT-Cryo Cryotherapy 10:54:51 RAILROAD YARD WORKER CPT-13407 Administration 2+ single or combination vaccines inc oral 10:42:19 CDT CPT-88078 Administration single or combination vaccine inc oral 10 :42:19 CDT CPT-89471 Pneumovax 10:42:19 CDT CPT-14023 Influenza High Dose age 65+ 10:42:19 CDT CPT-18754 Administration single or combination vaccine inc oral 13 :18:54 CDT CPT-27648 Influenza High Dose age 65+ 13:18:54 CDT CPT-67323 Venipuncture Draw Fee 11:53:16 CDT CPT-10516 LS spine comp w obliq 11:03:13 CDT CPT-Cryo Cryotherapy 08:27:16 RAILROAD YARD WORKER CPT-96259 Administration single or combination vaccine inc oral 10 :56:34 CDT CPT-23398 Influenza High Dose age 65+ 10:56:34 CDT
[2018-03-31] MEDS ORDERED: CATHETER FLUSH 10 ML SYR IV PRN (19:45)
--- OUTSIDE RECORDS SUMMARY | 2018-03-31 19:45 | XMS REPORT | Clinical Summary ---
[...] hours as needed for pain TRAMADOL HCL 37568050325 Active Simon Castillo MD Active PREDNISONE 5 MG TAB Take one po qod PREDNISONE 51238377996 No Longer Active Simon Castillo MD Active GLYBURIDE 5 MG TAB Take one by mouth daily GLYBURIDE 53531936984 No Longer Active Simon Castillo MD Active LEVAQUIN 750 MG TABS 1 po qod x 5 doses LEVOFLOXACIN 67596377100 No Longer Active Simon Castillo MD Active CETIRIZINE HCL 10 MG TABS 1 po qd as needed for allergies CETIRIZINE HCL 09878008636 No Longer Active Simon Castillo MD Active FISH OIL 1000 MG CPDR 1 pill by mouth twice daily for cholesterol OMEGA -3 FATTY ACIDS 29951545604 Active Simon Castillo MD Active BILBERRY CAPS 1 tab daily BILBERRY (VACCINIUM MYRTILLUS) CAPS 75732407221 Active Simon Castillo MD Active ATENOLOL 50 MG TABS Take one by mouth daily ATENOLOL 07680399060 No Longer Active Simon Castillo MD Active FLONASE 50 MCG/ACT SUSP 2 puffs in each nostril daily FLUTICASONE PROPIONATE 14225059065 No Longer Active Simon Castillo MD Active GLYBURIDE 5 MG TAB Take one by mouth daily GLYBURIDE 97513251679 No Longer Active Simon Castillo MD Active SYMBICORT 80-4.5 MCG/ACT AERO 2 puffs twice a day BUDESONIDE-FORMOTEROL FUMARATE 71280803503 No Longer Active Simon Castillo MD Active PREDNISONE 20 MG TAB 2 tabs daily for 4 days, 1 tab daily for 4 days, 1/2 tab daily for 4 days PREDNISONE 28688345695 No Longer Active Simon Castillo MD Active AMOXICILLIN 500 MG CAPS 2 po BID x 10 days AMOXICILLIN 81593952123 No Longer Active Simon Castillo MD Active METFORMIN HCL 1000 MG TABS 1 by mounth twice a day METFORMIN HCL 48411862263 Active Simon Castillo MD Active LUTEIN-ZEAXANTHIN 6-1 MG TABS Take 2 by mouth daily LUTEIN-ZEAXANTHIN 33229222881 Active Simon Castillo MD Active IBUPROFEN 800 MG TABS Take 1 tab every 6 hrs prn IBUPROFEN 53047307460 No Longer Active Simon Castillo MD Active LISINOPRIL-HYDROCHLOROTHIAZIDE 20-12.5 MG TABS 1 tab by mouth daily LISINOPRIL-HYDROCHLOROTHIAZIDE 36973934109 Active Simon Castillo MD Active GLYBURIDE 2.5 MG TABS Take one by mouth daily GLYBURIDE 98075241845 No Longer Active Simon Castillo MD Active LANCETS MISC 2 qd LANCETS 57221331663 Active Pamela Conde Active ACACIA CONTOUR TEST STRP Use with testing twice daily GLUCOSE BLOOD 49283875355 Active Pamela Conde Active ACACIA ASPIRIN 325 MG TABS Take one by mouth daily ASPIRIN 90784626152 Active Pamela Conde Active GLYBURIDE 2.5 MG TABS Take one by mouth daily GLYBURIDE 2.5 MG TABS 294785 GLYBURIDE Inactive PREDNISONE 20 MG TAB 2 tabs daily for 4 days, 1 tab daily for 4 days, 1/2 tab daily for 4 days PREDNISONE 20 MG TAB 568588 PREDNISONE Inactive SYMBICORT 80-4.5 MCG/ACT AERO 2 puffs twice a day SYMBICORT 80-4.5 MCG/ACT AERO BUDESONIDE-FORMOTEROL FUMARATE Inactive FLONASE 50 MCG/ACT SUSP 2 puffs in each nostril daily FLONASE 50 MCG/ACT SUSP 083513 FLUTICASONE PROPIONATE Inactive ATENOLOL 50 MG TABS Take one by mouth daily ATENOLOL 50 MG TABS 326657 ATENOLOL Inactive CETIRIZINE HCL 10 MG TABS 1 po qd as needed for allergies CETIRIZINE HCL 10 MG TABS 3119135 CETIRIZINE HCL Inactive LEVAQUIN 750 MG TABS 1 po qod x 5 doses LEVAQUIN 750 MG TABS 755479 LEVOFLOXACIN Inactive GLYBURIDE 5 MG TAB Take one by mouth daily GLYBURIDE 5 MG TAB 288711 GLYBURIDE Inactive PREDNISONE 5 MG TAB Take one po qod PREDNISONE 5 MG TAB 577054 PREDNISONE Inactive AMOXICILLIN 500 MG CAPS 2 po BID x 10 days AMOXICILLIN 500 MG CAPS 645774 AMOXICILLIN Inactive GLYBURIDE 5 MG TAB Take one by mouth daily GLYBURIDE 5 MG TAB 464641 GLYBURIDE Inactive Immunizations Vaccine Administration Date Value [...] Panel - Chemistry sodium, serum 137 mmol/L 523-324 9659/06/26 potassium, serum 5.7 mmol/L 3.5-5.2 chloride, serum 104 mmol/L 98-107 carbon dioxide, venous blood 21.2 mmol/L 21.0-32.0 blood glucose 129 mg/dL 65-110 calcium, serum 9.0 mg/dL 8.5-10.1 urea nitrogen, blood 67 mg/dL 7-18 creatinine, serum 3.30 mg/dL 0.60-1.30 sodium, serum 140 mmol/L 691-638 8481/07/10 potassium, serum 5.3 mmol/L 3.5-5.2 chloride, serum 105 mmol/L 98-107 carbon dioxide, venous blood 25.5 mmol/L 21.0-32.0 blood glucose 119 mg/dL 65-110 calcium, serum 8.9 mg/dL 8.5-10.1 urea nitrogen, blood 44 mg/dL 7-18 creatinine, serum 2.50 mg/dL 0.60-1.30 Lab Report: CBC W/DIFF, Comp. Metabolic Panel - Chemistry sodium, serum 137 mmol/L 992-380 5922/06/18 potassium, serum 5.3 mmol/L 3.5-5.2 chloride, serum [...] 6.9 % 4.3-6.0 sodium, serum 137 mmol/L 462-147 8756/08/21 potassium, serum 5.3 mmol/L 3.5-5.2 chloride, serum [...] 7.2 % 4.3-6.0 sodium, serum 137 mmol/L 109-055 4612/01/23 potassium, serum 5.2 mmol/L 3.5-5.2 chloride, serum [...] mg/dL Encounters Code Encounter Date Provider Facility CPT-35493 Level 4 Est. Patient 11:48:19 CDT Simon Castillo MD [facility] CPT-62327 Level 4 Est. Patient 08:59:29 CDT Simon Castillo MD [facility] CPT-27271 Level 4 Est. Patient 10:52:51 TECHNICAL SUPPORT ANALYST Simon Castillo MD [facility] CPT-96031 Level 4 Est. Patient 11:50:30 CDT Simon Castillo MD [facility] CPT-40841 Level 4 Est. Patient 09:54:46 CDT Simon Castillo MD [facility] CPT-58757 Level 3 Est. Patient 11:10:14 CDT Simon Castillo MD [facility] CPT-04554 Level 4 Est. Patient 09:44:02 CDT Simon Castillo MD [facility] CPT-04528 Level 3 Est. Patient 09:27:48 CDT Simon Castillo MD [facility] CPT-73836 Level 3 Est. Patient 09:58:06 TECHNICAL SUPPORT ANALYST Simon Castillo MD [facility] CPT-04705 Level 3 Est. Patient 09:51:35 CDT Simon Castillo MD [facility] Procedures Code Procedure Name Date Entry Date Standard Description CPT-Cryo Cryotherapy 11:48:20 CDT CPT-49149 EKG Trac and Interp 09:21:58 CDT CPT-42306 Chest 2V Frontal and Lat 09:21:58 CDT CPT-Cryo Cryotherapy 10:54:51 TECHNICAL SUPPORT ANALYST CPT-02522 Administration 2+ single or combination vaccines inc oral 10:42:19 CDT CPT-85686 Administration single or combination vaccine inc oral 10 :42:19 CDT CPT-09528 Pneumovax 10:42:19 CDT CPT-81611 Influenza High Dose age 65+ 10:42:19 CDT CPT-41321 Administration single or combination vaccine inc oral 13 :18:54 CDT CPT-79209 Influenza High Dose age 65+ 13:18:54 CDT CPT-81308 Venipuncture Draw Fee 11:53:16 CDT CPT-20089 LS spine comp w obliq 11:03:13 CDT CPT-Cryo Cryotherapy 08:27:16 TECHNICAL SUPPORT ANALYST CPT-68517 Administration single or combination vaccine inc oral 10 :56:34 CDT CPT-91788 Influenza High Dose age 65+ 10:56:34 CDT
--- OUTSIDE RECORDS SUMMARY | 2018-03-31 19:45 | XMS REPORT | Clinical Summary ---
Author Author Admin, RAFFI Organization [facility] Address Unknown Phone Allergies, Adverse Reactions, [...] 1 po qod x 5 doses LEVOFLOXACIN 78511926632 Active Simon Castillo MD Active CETIRIZINE HCL 10 MG TABS 1 po qd as needed for allergies CETIRIZINE HCL 48088793976 No Longer Active Simon Castillo MD Active FISH OIL 1000 MG CPDR 1 pill by mouth twice daily for cholesterol OMEGA -3 FATTY ACIDS 05442338287 Active Simon Castillo MD Active BILBERRY CAPS 1 tab daily BILBERRY (VACCINIUM MYRTILLUS) CAPS 48395520438 Active Simon Castillo MD Active PREDNISONE 5 MG TAB Take one po qod PREDNISONE 39346097432 Active Simon Castillo MD Active ATENOLOL 50 MG TABS Take one by mouth daily ATENOLOL 40713488159 No Longer Active Simon Castillo MD Active GLYBURIDE 5 MG TAB Take one by mouth daily GLYBURIDE 38930083041 Active Jami Dickey Active FLONASE 50 MCG/ACT SUSP 2 puffs in each nostril daily FLUTICASONE PROPIONATE 60869341215 No Longer Active Simon Castillo MD Active GLYBURIDE 5 MG TAB Take one by mouth daily GLYBURIDE 83279367206 No Longer Active Simon Castillo MD Active SYMBICORT 80-4.5 MCG/ACT AERO 2 puffs twice a day BUDESONIDE-FORMOTEROL FUMARATE 50106384265 No Longer Active Simon Castillo MD Active PREDNISONE 20 MG TAB 2 tabs daily for 4 days, 1 tab daily for 4 days, 1/2 tab daily for 4 days PREDNISONE 56033261519 No Longer Active Simon Castillo MD Active AMOXICILLIN 500 MG CAPS 2 po BID x 10 days AMOXICILLIN 79753566472 No Longer Active Simon Castillo MD Active METFORMIN HCL 1000 MG TABS 1 by mount twice a day METFORMIN HCL 18971398375 Active Simon Castillo MD Active LUTEIN-ZEAXANTHIN 6-1 MG TABS Take 2 by mouth daily LUTEIN-ZEAXANTHIN 40016332542 Active Simon Castillo MD Active IBUPROFEN 800 MG TABS Take 1 tab every 6 hrs prn IBUPROFEN 15040096750 Active Simon Castillo MD Active LISINOPRIL-HYDROCHLOROTHIAZIDE 20-12.5 MG TABS 1 tab by mouth daily LISINOPRIL-HYDROCHLOROTHIAZIDE 60480180780 Active Simon Castillo MD Active GLYBURIDE 2.5 MG TABS Take one by mouth daily GLYBURIDE 68441065551 No Longer Active Simon Castillo MD Active LANCETS MISC 2 qd LANCETS 10330245699 Active Pamela Conde Active [employer] CONTOUR TEST STRP Use with testing twice daily GLUCOSE BLOOD 01577736709 Active Pamela Conde Active ACACIA ASPIRIN 325 MG TABS Take one by mouth daily ASPIRIN 22703775603 Active Pamela Conde Active GLYBURIDE 2.5 MG TABS Take one by mouth daily GLYBURIDE 2.5 MG TABS 382903 GLYBURIDE Inactive PREDNISONE 20 MG TAB 2 tabs daily for 4 days, 1 tab daily for 4 days, 1/2 tab daily for 4 days PREDNISONE 20 MG TAB 178724 PREDNISONE Inactive SYMBICORT 80-4.5 MCG/ACT AERO 2 puffs twice a day SYMBICORT 80-4.5 MCG/ACT AERO BUDESONIDE-FORMOTEROL FUMARATE Inactive FLONASE 50 MCG/ACT SUSP 2 puffs in each nostril daily FLONASE 50 MCG/ACT SUSP 512797 FLUTICASONE PROPIONATE Inactive ATENOLOL 50 MG TABS Take one by mouth daily ATENOLOL 50 MG TABS 805831 ATENOLOL Inactive CETIRIZINE HCL 10 MG TABS 1 po qd as needed for allergies CETIRIZINE HCL 10 MG TABS 5989686 CETIRIZINE HCL Inactive AMOXICILLIN 500 MG CAPS 2 po BID x 10 days AMOXICILLIN 500 MG CAPS 935130 AMOXICILLIN Inactive GLYBURIDE 5 MG TAB Take one by mouth daily GLYBURIDE 5 MG TAB 099384 GLYBURIDE Inactive Immunizations Vaccine Administration Date Value [...] Panel - Chemistry sodium, serum 137 mmol/L 385-155 4047/06/26 potassium, serum 5.7 mmol/L 3.5-5.2 chloride, serum 104 mmol/L 98-107 carbon dioxide, venous blood 21.2 mmol/L 21.0-32.0 blood glucose 129 mg/dL 65-110 calcium, serum 9.0 mg/dL 8.5-10.1 urea nitrogen, blood 67 mg/dL 7-18 creatinine, serum 3.30 mg/dL 0.60-1.30 Lab Report: CBC W/DIFF, Comp. Metabolic Panel - Chemistry sodium, serum 137 mmol/L 966-891 5248/06/18 potassium, serum 5.3 mmol/L 3.5-5.2 chloride, serum [...] (AUTO) - Chemistry sodium, serum 141 mmol/L 201-957 9490/07/29 potassium, serum 5.7 mmol/L 3.5-5.2 chloride, serum [...] 7.2 % 4.3-6.0 sodium, serum 137 mmol/L 669-795 4655/01/23 potassium, serum 5.2 mmol/L 3.5-5.2 chloride, serum [...] mg/dL Encounters Code Encounter Date Provider Facility CPT-07928 Level 4 Est. Patient 08:59:29 CDT Simon Castillo MD [facility] CPT-24515 Level 4 Est. 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 Patient 11:50:30 CDT Simon Castillo MD [facility] CPT-03936 Level 4 Est. Patient 09:54:46 CDT Simon Castillo MD [facility] CPT-54381 Level 3 Est. Patient 11:10:14 CDT Simon Castillo MD [facility] CPT-95407 Level 4 Est. Patient 09:44:02 CDT Simon Castillo MD [facility] CPT-80093 Level 3 Est. Patient 09:27:48 CDT Simon Castillo MD [facility] CPT-67039 Level 3 Est. Patient 09:58:06 HAND BUTTON SPLITTER Simon Castillo MD [facility] CPT-10925 Level 3 Est. Patient 09:51:35 CDT Simon Castillo MD [facility] Procedures Code Procedure Name Date Entry Date Standard Description CPT-47922 EKG Trac and Interp 09:21:58 CDT CPT-01328 Chest 2V Frontal and Lat 09:21:58 CDT CPT-Cryo Cryotherapy 10:54:51 HAND BUTTON SPLITTER CPT-93389 Administration 2+ single or combination vaccines inc oral 10:42:19 CDT CPT-46260 Administration single or combination vaccine inc oral 10 :42:19 CDT CPT-56579 Pneumovax 10:42:19 CDT CPT-45057 Influenza High Dose age 65+ 10:42:19 CDT CPT-55562 Administration single or combination vaccine inc oral 13 :18:54 CDT CPT-92205 Influenza High Dose age 65+ 13:18:54 CDT CPT-28400 Venipuncture Draw Fee 11:53:16 CDT CPT-41168 LS spine comp w obliq 11:03:13 CDT CPT-Cryo Cryotherapy 08:27:16 HAND BUTTON SPLITTER CPT-91674 Administration single or combination vaccine inc oral 10 :56:34 CDT CPT-92659 Influenza High Dose age 65+ 10:56:34 CDT
--- OUTSIDE RECORDS SUMMARY | 2018-03-31 19:46 | XMS REPORT | Clinical Summary ---
Author Author Admin, RAFFI Organization [facility] Address Unknown Phone Unavailable Allergies, [...] 5 MG TABS 1 po qod PREDNISONE 12741180774 Active Simon Castillo MD Active TRAMADOL HCL 50 MG TABS 1-2 tablets every 6 hours as needed for pain TRAMADOL HCL 22811171086 Active Simon Castillo MD Active PREDNISONE 5 MG TAB Take one po qod PREDNISONE 35215793997 No Longer Active Simon Castillo MD Active GLYBURIDE 5 MG TAB Take one by mouth daily GLYBURIDE 20695383000 No Longer Active Simon Castillo MD Active LEVAQUIN 750 MG TABS 1 po qod x 5 doses LEVOFLOXACIN 59999547888 No Longer Active Simon Castillo MD Active CETIRIZINE HCL 10 MG TABS 1 po qd as needed for allergies CETIRIZINE HCL 29285094863 No Longer Active Simon Castillo MD Active FISH OIL 1000 MG CPDR 1 pill by mouth twice daily for cholesterol OMEGA -3 FATTY ACIDS 81757378295 Active Simon Castillo MD Active BILBERRY CAPS 1 tab daily BILBERRY (VACCINIUM MYRTILLUS) CAPS 48336943361 Active Simon Castillo MD Active ATENOLOL 50 MG TABS Take one by mouth daily ATENOLOL 62941581214 No Longer Active Simon Castillo MD Active FLONASE 50 MCG/ACT SUSP 2 puffs in each nostril daily FLUTICASONE PROPIONATE 34723747595 No Longer Active Simon Castillo MD Active GLYBURIDE 5 MG TAB Take one by mouth daily GLYBURIDE 70050042009 No Longer Active Simon Castillo MD Active SYMBICORT 80-4.5 MCG/ACT AERO 2 puffs twice a day BUDESONIDE-FORMOTEROL FUMARATE 76989642212 No Longer Active Simon Castillo MD Active PREDNISONE 20 MG TAB 2 tabs daily for 4 days, 1 tab daily for 4 days, 1/2 tab daily for 4 days PREDNISONE 22995406397 No Longer Active Simon Castillo MD Active AMOXICILLIN 500 MG CAPS 2 po BID x 10 days AMOXICILLIN 78173901958 No Longer Active Simon Castillo MD Active METFORMIN HCL 1000 MG TABS 1 by mounth twice a day METFORMIN HCL 68780677743 Active Simon Castillo MD Active LUTEIN-ZEAXANTHIN 6-1 MG TABS Take 2 by mouth daily LUTEIN-ZEAXANTHIN 13307928670 Active Simon Castillo MD Active IBUPROFEN 800 MG TABS Take 1 tab every 6 hrs prn IBUPROFEN 78027292408 No Longer Active Simon Castillo MD Active LISINOPRIL-HYDROCHLOROTHIAZIDE 20-12.5 MG TABS 1 tab by mouth daily LISINOPRIL-HYDROCHLOROTHIAZIDE 56940049164 Active Simon Castillo MD Active GLYBURIDE 2.5 MG TABS Take one by mouth daily GLYBURIDE 14079919308 No Longer Active Simon Castillo MD Active LANCETS MISC 2 qd LANCETS 96162664907 Active Pamela Conde Active ACACIA CONTOUR TEST STRP Use with testing twice daily GLUCOSE BLOOD 16376778571 Active Pamela Conde Active ACACIA ASPIRIN 325 MG TABS Take one by mouth daily ASPIRIN 19777552046 Active Pamela Conde Active GLYBURIDE 2.5 MG TABS Take one by mouth daily GLYBURIDE 2.5 MG TABS 274229 GLYBURIDE Inactive PREDNISONE 20 MG TAB 2 tabs daily for 4 days, 1 tab daily for 4 days, 1/2 tab daily for 4 days PREDNISONE 20 MG TAB 921930 PREDNISONE Inactive SYMBICORT 80-4.5 MCG/ACT AERO 2 puffs twice a day SYMBICORT 80-4.5 MCG/ACT AERO BUDESONIDE-FORMOTEROL FUMARATE Inactive FLONASE 50 MCG/ACT SUSP 2 puffs in each nostril daily FLONASE 50 MCG/ACT SUSP 296593 FLUTICASONE PROPIONATE Inactive ATENOLOL 50 MG TABS Take one by mouth daily ATENOLOL 50 MG TABS 063199 ATENOLOL Inactive CETIRIZINE HCL 10 MG TABS 1 po qd as needed for allergies CETIRIZINE HCL 10 MG TABS 5988890 CETIRIZINE HCL Inactive LEVAQUIN 750 MG TABS 1 po qod x 5 doses LEVAQUIN 750 MG TABS 847460 LEVOFLOXACIN Inactive GLYBURIDE 5 MG TAB Take one by mouth daily GLYBURIDE 5 MG TAB 684706 GLYBURIDE Inactive PREDNISONE 5 MG TAB Take one po qod PREDNISONE 5 MG TAB 522968 PREDNISONE Inactive AMOXICILLIN 500 MG CAPS 2 po BID x 10 days AMOXICILLIN 500 MG CAPS 496214 AMOXICILLIN Inactive GLYBURIDE 5 MG TAB Take one by mouth daily GLYBURIDE 5 MG TAB 809986 GLYBURIDE Inactive Immunizations Vaccine Administration Date Value [...] Panel - Chemistry sodium, serum 137 mmol/L 036-036 5876/06/26 potassium, serum 5.7 mmol/L 3.5-5.2 chloride, serum 104 mmol/L 98-107 carbon dioxide, venous blood 21.2 mmol/L 21.0-32.0 blood glucose 129 mg/dL 65-110 calcium, serum 9.0 mg/dL 8.5-10.1 urea nitrogen, blood 67 mg/dL 7-18 creatinine, serum 3.30 mg/dL 0.60-1.30 sodium, serum 140 mmol/L 117-235 1413/07/10 potassium, serum 5.3 mmol/L 3.5-5.2 chloride, serum 105 mmol/L 98-107 carbon dioxide, venous blood 25.5 mmol/L 21.0-32.0 blood glucose 119 mg/dL 65-110 calcium, serum 8.9 mg/dL 8.5-10.1 urea nitrogen, blood 44 mg/dL 7-18 creatinine, serum 2.50 mg/dL 0.60-1.30 Lab Report: CBC W/DIFF, Comp. Metabolic Panel - Chemistry sodium, serum 137 mmol/L 495-302 1391/06/18 potassium, serum 5.3 mmol/L 3.5-5.2 chloride, serum [...] 6.9 % 4.3-6.0 sodium, serum 137 mmol/L 555-619 9648/08/21 potassium, serum 5.3 mmol/L 3.5-5.2 chloride, serum [...] 7.2 % 4.3-6.0 sodium, serum 137 mmol/L 275-409 8118/01/23 potassium, serum 5.2 mmol/L 3.5-5.2 chloride, serum [...] mg/dL Encounters Code Encounter Date Provider Facility CPT-32937 Level 4 Est. Patient 11:48:19 CDT Simon Castillo MD [facility] CPT-55159 Level 4 Est. Patient 08:59:29 CDT Simon Castillo MD [facility] CPT-32434 Level 4 Est. 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 Patient 11:50:30 CDT Simon Castillo MD [facility] CPT-78565 Level 4 Est. Patient 09:54:46 CDT Simon Castillo MD [facility] CPT-45079 Level 3 Est. Patient 11:10:14 CDT Simon Castillo MD [facility] CPT-39795 Level 4 Est. Patient 09:44:02 CDT Simon Castillo MD [facility] CPT-35433 Level 3 Est. Patient 09:27:48 CDT Simon Castillo MD [facility] CPT-53114 Level 3 Est. Patient 09:58:06 CELLULOSE INSULATION HELPER Simon Castillo MD [facility] CPT-63365 Level 3 Est. Patient 09:51:35 CDT Simon Castillo MD [facility] Procedures Code Procedure Name Date Entry Date Standard Description CPT-Cryo Cryotherapy 11:48:20 CDT CPT-00715 EKG Trac and Interp 09:21:58 CDT CPT-54704 Chest 2V Frontal and Lat 09:21:58 CDT CPT-Cryo Cryotherapy 10:54:51 CELLULOSE INSULATION HELPER CPT-27354 Administration 2+ single or combination vaccines inc oral 10:42:19 CDT CPT-03606 Administration single or combination vaccine inc oral 10 :42:19 CDT CPT-90522 Pneumovax 10:42:19 CDT CPT-26700 Influenza High Dose age 65+ 10:42:19 CDT CPT-24982 Administration single or combination vaccine inc oral 13 :18:54 CDT CPT-09754 Influenza High Dose age 65+ 13:18:54 CDT CPT-86821 Venipuncture Draw Fee 11:53:16 CDT CPT-58653 LS spine comp w obliq 11:03:13 CDT CPT-Cryo Cryotherapy 08:27:16 CELLULOSE INSULATION HELPER CPT-41034 Administration single or combination vaccine inc oral 10 :56:34 CDT CPT-77218 Influenza High Dose age 65+ 10:56:34 CDT
--- OUTSIDE RECORDS SUMMARY | 2018-03-31 19:47 | XMS REPORT | Clinical Summary ---
Author Author Admin, RAFFI Organization [facility] Address Unknown Phone Allergies, Adverse Reactions, [...] qd as needed for allergies CETIRIZINE HCL 94498498749 Active Simon Castillo MD Active FISH OIL 1000 MG CPDR 1 pill by mouth twice daily for cholesterol OMEGA -3 FATTY ACIDS 28945630423 Active Simon Castillo MD Active BILBERRY CAPS 1 tab daily BILBERRY (VACCINIUM MYRTILLUS) CAPS 07634481237 Active Simon Castillo MD Active PREDNISONE 5 MG TAB Take one po qod PREDNISONE 79311055924 Active Simon Castillo MD Active ATENOLOL 50 MG TABS Take one by mouth daily ATENOLOL 84738781013 No Longer Active Simon Castillo MD Active GLYBURIDE 5 MG TAB Take one by mouth daily GLYBURIDE 29202401469 Active Jami Lamy Active FLONASE 50 MCG/ACT SUSP 2 puffs in each nostril daily FLUTICASONE PROPIONATE 06638865200 No Longer Active Simon Castillo MD Active GLYBURIDE 5 MG TAB Take one by mouth daily GLYBURIDE 38681732845 No Longer Active Simon Castillo MD Active SYMBICORT 80-4.5 MCG/ACT AERO 2 puffs twice a day BUDESONIDE-FORMOTEROL FUMARATE 89585909098 No Longer Active Simon Castillo MD Active PREDNISONE 20 MG TAB 2 tabs daily for 4 days, 1 tab daily for 4 days, 1/2 tab daily for 4 days PREDNISONE 41527201735 No Longer Active Simon Castillo MD Active AMOXICILLIN 500 MG CAPS 2 po BID x 10 days AMOXICILLIN 17357370096 No Longer Active Simon Castillo MD Active METFORMIN HCL 1000 MG TABS 1 by mounth twice a day METFORMIN HCL 48896259781 Active Simon Castillo MD Active LUTEIN-ZEAXANTHIN 6-1 MG TABS Take 2 by mouth daily LUTEIN-ZEAXANTHIN 91566942283 Active Simon Castillo MD Active IBUPROFEN 800 MG TABS Take 1 tab every 6 hrs prn IBUPROFEN 23375459721 Active Simon Castillo MD Active LISINOPRIL-HYDROCHLOROTHIAZIDE 20-12.5 MG TABS 1 tab by mouth daily LISINOPRIL-HYDROCHLOROTHIAZIDE 78176211315 Active Simon Castillo MD Active GLYBURIDE 2.5 MG TABS Take one by mouth daily GLYBURIDE 26618449673 No Longer Active Simon Castillo MD Active [facility] MISC 2 qd [facility] 93834212575 Active Pamela Conde Active [employer] CONTOUR TEST STRP Use with testing twice daily GLUCOSE BLOOD 31929234245 Active Pamela Conde Active ACACIA ASPIRIN 325 MG TABS Take one by mouth daily ASPIRIN 82364900793 Active Pamela Conde Active GLYBURIDE 2.5 MG TABS Take one by mouth daily GLYBURIDE 2.5 MG TABS 007541 GLYBURIDE Inactive PREDNISONE 20 MG TAB 2 tabs daily for 4 days, 1 tab daily for 4 days, 1/2 tab daily for 4 days PREDNISONE 20 MG TAB 162029 PREDNISONE Inactive SYMBICORT 80-4.5 MCG/ACT AERO 2 puffs twice a day SYMBICORT 80-4.5 MCG/ACT AERO BUDESONIDE-FORMOTEROL FUMARATE Inactive FLONASE 50 MCG/ACT SUSP 2 puffs in each nostril daily FLONASE 50 MCG/ACT SUSP 588715 FLUTICASONE PROPIONATE Inactive ATENOLOL 50 MG TABS Take one by mouth daily ATENOLOL 50 MG TABS 002300 ATENOLOL Inactive AMOXICILLIN 500 MG CAPS 2 po BID x 10 days AMOXICILLIN 500 MG CAPS 874831 AMOXICILLIN Inactive GLYBURIDE 5 MG TAB Take one by mouth daily GLYBURIDE 5 MG TAB 230348 GLYBURIDE Inactive Immunizations Vaccine Administration Date Value [...] (AUTO) - Chemistry sodium, serum 141 mmol/L 794-744 7128/07/29 potassium, serum 5.7 mmol/L 3.5-5.2 chloride, serum [...] 7.2 % 4.3-6.0 sodium, serum 137 mmol/L 437-155 6739/01/23 potassium, serum 5.2 mmol/L 3.5-5.2 chloride, serum [...] mg/dL Encounters Code Encounter Date Provider Facility CPT-32840 Level 4 Est. 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 Patient 11:50:30 CDT Simon Castillo MD [facility] CPT-40171 Level 4 Est. Patient 09:54:46 CDT Simon Castillo MD [facility] CPT-99152 Level 3 Est. Patient 11:10:14 CDT Simon Castillo MD [facility] CPT-89049 Level 4 Est. Patient 09:44:02 CDT Simon Castillo MD [facility] CPT-75279 Level 3 Est. Patient 09:27:48 CDT Simon Castillo MD [facility] CPT-61596 Level 3 Est. Patient 09:58:06 FILM SOUND COORDINATOR Simon Castillo MD [facility] CPT-04499 Level 3 Est. Patient 09:51:35 CDT Simon Castillo MD [facility] Procedures Code Procedure Name Date Entry Date Standard Description CPT-Cryo Cryotherapy 10:54:51 FILM SOUND COORDINATOR CPT-31927 Administration 2+ single or combination vaccines inc oral 10:42:19 CDT CPT-08859 Administration single or combination vaccine inc oral 10 :42:19 CDT CPT-37570 Pneumovax 10:42:19 CDT CPT-79830 Influenza High Dose age 65+ 10:42:19 CDT CPT-31270 Administration single or combination vaccine inc oral 13 :18:54 CDT CPT-15494 Influenza High Dose age 65+ 13:18:54 CDT CPT-20825 Venipuncture Draw Fee 11:53:16 CDT CPT-42050 LS spine comp w obliq 11:03:13 CDT CPT-Cryo Cryotherapy 08:27:16 FILM SOUND COORDINATOR CPT-23318 Administration single or combination vaccine inc oral 10 :56:34 CDT CPT-69345 Influenza High Dose age 65+ 10:56:34 CDT
--- OUTSIDE RECORDS SUMMARY | 2018-03-31 19:47 | XMS REPORT | Clinical Summary ---
Author Author Admin, RAFFI Organization [facility] Address Unknown Phone Unavailable Allergies, [...] hours as needed for pain TRAMADOL HCL 90485159653 Active Simon Castillo MD Active PREDNISONE 5 MG TAB Take one po qod PREDNISONE 92131643305 No Longer Active Simon Castillo MD Active GLYBURIDE 5 MG TAB Take one by mouth daily GLYBURIDE 89609101716 No Longer Active Simon Castillo MD Active LEVAQUIN 750 MG TABS 1 po qod x 5 doses LEVOFLOXACIN 59196916942 No Longer Active Simon Castillo MD Active CETIRIZINE HCL 10 MG TABS 1 po qd as needed for allergies CETIRIZINE HCL 19012751088 No Longer Active Simon Castillo MD Active FISH OIL 1000 MG CPDR 1 pill by mouth twice daily for cholesterol OMEGA -3 FATTY ACIDS 86855875597 Active Simon Castillo MD Active BILBERRY CAPS 1 tab daily BILBERRY (VACCINIUM MYRTILLUS) CAPS 60013265048 Active Simon Castillo MD Active ATENOLOL 50 MG TABS Take one by mouth daily ATENOLOL 81635675924 No Longer Active Simon Castillo MD Active FLONASE 50 MCG/ACT SUSP 2 puffs in each nostril daily FLUTICASONE PROPIONATE 55098286357 No Longer Active Simon Castillo MD Active GLYBURIDE 5 MG TAB Take one by mouth daily GLYBURIDE 38300044539 No Longer Active Simon Castillo MD Active SYMBICORT 80-4.5 MCG/ACT AERO 2 puffs twice a day BUDESONIDE-FORMOTEROL FUMARATE 38700807573 No Longer Active Simon Castillo MD Active PREDNISONE 20 MG TAB 2 tabs daily for 4 days, 1 tab daily for 4 days, 1/2 tab daily for 4 days PREDNISONE 84237649833 No Longer Active Simon Castillo MD Active AMOXICILLIN 500 MG CAPS 2 po BID x 10 days AMOXICILLIN 77940824639 No Longer Active Simon Castillo MD Active METFORMIN HCL 1000 MG TABS 1 by mounth twice a day METFORMIN HCL 34043613906 Active Simon Castillo MD Active LUTEIN-ZEAXANTHIN 6-1 MG TABS Take 2 by mouth daily LUTEIN-ZEAXANTHIN 02521157316 Active Simon Castillo MD Active IBUPROFEN 800 MG TABS Take 1 tab every 6 hrs prn IBUPROFEN 75762030846 No Longer Active Simon Castillo MD Active LISINOPRIL-HYDROCHLOROTHIAZIDE 20-12.5 MG TABS 1 tab by mouth daily LISINOPRIL-HYDROCHLOROTHIAZIDE 06159931410 Active Simon Castillo MD Active GLYBURIDE 2.5 MG TABS Take one by mouth daily GLYBURIDE 14633621360 No Longer Active Simon Castillo MD Active LANCETS MISC 2 qd LANCETS 35657830711 Active Pamela Conde Active ACACIA CONTOUR TEST STRP Use with testing twice daily GLUCOSE BLOOD 39119306153 Active Pamela Conde Active ACACIA ASPIRIN 325 MG TABS Take one by mouth daily ASPIRIN 16342905236 Active Pamela Conde Active GLYBURIDE 2.5 MG TABS Take one by mouth daily GLYBURIDE 2.5 MG TABS 723181 GLYBURIDE Inactive PREDNISONE 20 MG TAB 2 tabs daily for 4 days, 1 tab daily for 4 days, 1/2 tab daily for 4 days PREDNISONE 20 MG TAB 619938 PREDNISONE Inactive SYMBICORT 80-4.5 MCG/ACT AERO 2 puffs twice a day SYMBICORT 80-4.5 MCG/ACT AERO BUDESONIDE-FORMOTEROL FUMARATE Inactive FLONASE 50 MCG/ACT SUSP 2 puffs in each nostril daily FLONASE 50 MCG/ACT SUSP 626630 FLUTICASONE PROPIONATE Inactive ATENOLOL 50 MG TABS Take one by mouth daily ATENOLOL 50 MG TABS 255896 ATENOLOL Inactive CETIRIZINE HCL 10 MG TABS 1 po qd as needed for allergies CETIRIZINE HCL 10 MG TABS 2283278 CETIRIZINE HCL Inactive LEVAQUIN 750 MG TABS 1 po qod x 5 doses LEVAQUIN 750 MG TABS 922787 LEVOFLOXACIN Inactive GLYBURIDE 5 MG TAB Take one by mouth daily GLYBURIDE 5 MG TAB 974393 GLYBURIDE Inactive PREDNISONE 5 MG TAB Take one po qod PREDNISONE 5 MG TAB 763385 PREDNISONE Inactive AMOXICILLIN 500 MG CAPS 2 po BID x 10 days AMOXICILLIN 500 MG CAPS 106841 AMOXICILLIN Inactive GLYBURIDE 5 MG TAB Take one by mouth daily GLYBURIDE 5 MG TAB 278815 GLYBURIDE Inactive Immunizations Vaccine Administration Date Value [...] Panel - Chemistry sodium, serum 137 mmol/L 350-955 1292/06/26 potassium, serum 5.7 mmol/L 3.5-5.2 chloride, serum 104 mmol/L 98-107 carbon dioxide, venous blood 21.2 mmol/L 21.0-32.0 blood glucose 129 mg/dL 65-110 calcium, serum 9.0 mg/dL 8.5-10.1 urea nitrogen, blood 67 mg/dL 7-18 creatinine, serum 3.30 mg/dL 0.60-1.30 sodium, serum 140 mmol/L 717-540 4525/07/10 potassium, serum 5.3 mmol/L 3.5-5.2 chloride, serum 105 mmol/L 98-107 carbon dioxide, venous blood 25.5 mmol/L 21.0-32.0 blood glucose 119 mg/dL 65-110 calcium, serum 8.9 mg/dL 8.5-10.1 urea nitrogen, blood 44 mg/dL 7-18 creatinine, serum 2.50 mg/dL 0.60-1.30 Lab Report: CBC W/DIFF, Comp. Metabolic Panel - Chemistry sodium, serum 137 mmol/L 414-353 6828/06/18 potassium, serum 5.3 mmol/L 3.5-5.2 chloride, serum [...] 6.9 % 4.3-6.0 sodium, serum 137 mmol/L 589-880 3530/08/21 potassium, serum 5.3 mmol/L 3.5-5.2 chloride, serum [...] 7.2 % 4.3-6.0 sodium, serum 137 mmol/L 057-538 7696/01/23 potassium, serum 5.2 mmol/L 3.5-5.2 chloride, serum [...] mg/dL Encounters Code Encounter Date Provider Facility CPT-71394 Level 4 Est. Patient 11:48:19 CDT Simon Castillo MD [facility] CPT-60973 Level 4 Est. Patient 08:59:29 CDT Simon Castillo MD [facility] CPT-90774 Level 4 Est. Patient 10:52:51 CUSTOMER EXPERT Simon Castillo MD [facility] CPT-03059 Level 4 Est. Patient 11:50:30 CDT Simon Castillo MD [facility] CPT-73736 Level 4 Est. Patient 09:54:46 CDT Simon Castillo MD [facility] CPT-79384 Level 3 Est. Patient 11:10:14 CDT Simon Castillo MD [facility] CPT-30276 Level 4 Est. Patient 09:44:02 CDT Simon Castillo MD [facility] CPT-36817 Level 3 Est. Patient 09:27:48 CDT Simon Castillo MD [facility] CPT-05740 Level 3 Est. Patient 09:58:06 CUSTOMER EXPERT Simon Castillo MD [facility] CPT-28550 Level 3 Est. Patient 09:51:35 CDT Simon Castillo MD [facility] Procedures Code Procedure Name Date Entry Date Standard Description CPT-Cryo Cryotherapy 11:48:20 CDT CPT-42468 EKG Trac and Interp 09:21:58 CDT CPT-68529 Chest 2V Frontal and Lat 09:21:58 CDT CPT-Cryo Cryotherapy 10:54:51 CUSTOMER EXPERT CPT-68611 Administration 2+ single or combination vaccines inc oral 10:42:19 CDT CPT-56059 Administration single or combination vaccine inc oral 10 :42:19 CDT CPT-18584 Pneumovax 10:42:19 CDT CPT-42892 Influenza High Dose age 65+ 10:42:19 CDT CPT-33517 Administration single or combination vaccine inc oral 13 :18:54 CDT CPT-16250 Influenza High Dose age 65+ 13:18:54 CDT CPT-84953 Venipuncture Draw Fee 11:53:16 CDT CPT-92042 LS spine comp w obliq 11:03:13 CDT CPT-Cryo Cryotherapy 08:27:16 CUSTOMER EXPERT CPT-11242 Administration single or combination vaccine inc oral 10 :56:34 CDT CPT-26049 Influenza High Dose age 65+ 10:56:34 CDT
--- OUTSIDE RECORDS SUMMARY | 2018-03-31 19:49 | XMS REPORT | Clinical Summary ---
Author Author Admin, RAFFI Organization [facility] Address Unknown Phone Unavailable Allergies, [...] MD 2013 Chest pain ICD-786.50 Inactive Simon Casitllo MD Cough ICD-786.2 Inactive Simon Castillo MD Medication List Medication Instructions Start Date Stop Date Generic Name NDC Status Provider Patient Instruction TRAMADOL HCL 50 MG TABS 1-2 tablets every 6 hours as needed for pain TRAMADOL HCL 08754171819 Active Simon Castillo MD Active PREDNISONE 5 MG TAB Take one po qod PREDNISONE 06059803181 No Longer Active Simon Castillo MD Active GLYBURIDE 5 MG TAB Take one by mouth daily GLYBURIDE 72002914772 No Longer Active Simon Castillo MD Active LEVAQUIN 750 MG TABS 1 po qod x 5 doses LEVOFLOXACIN 32711871488 No Longer Active Simon Castillo MD Active CETIRIZINE HCL 10 MG TABS 1 po qd as needed for allergies CETIRIZINE HCL 52407029462 No Longer Active Simon Castillo MD Active FISH OIL 1000 MG CPDR 1 pill by mouth twice daily for cholesterol OMEGA -3 FATTY ACIDS 33829290387 Active Simon Castillo MD Active BILBERRY CAPS 1 tab daily BILBERRY (VACCINIUM MYRTILLUS) CAPS 57097928333 Active Simon Castillo MD Active ATENOLOL 50 MG TABS Take one by mouth daily ATENOLOL 48691326814 No Longer Active Simon Castillo MD Active FLONASE 50 MCG/ACT SUSP 2 puffs in each nostril daily FLUTICASONE PROPIONATE 76971054172 No Longer Active Simon Castillo MD Active GLYBURIDE 5 MG TAB Take one by mouth daily GLYBURIDE 37056712397 No Longer Active Simon Castillo MD Active SYMBICORT 80-4.5 MCG/ACT AERO 2 puffs twice a day BUDESONIDE-FORMOTEROL FUMARATE 61152665061 No Longer Active Simon Castillo MD Active PREDNISONE 20 MG TAB 2 tabs daily for 4 days, 1 tab daily for 4 days, 1/2 tab daily for 4 days PREDNISONE 23430708988 No Longer Active Simon Castillo MD Active AMOXICILLIN 500 MG CAPS 2 po BID x 10 days AMOXICILLIN 02617590218 No Longer Active Simon Castillo MD Active METFORMIN HCL 1000 MG TABS 1 by mounth twice a day METFORMIN HCL 30256209208 Active Simon Castillo MD Active LUTEIN-ZEAXANTHIN 6-1 MG TABS Take 2 by mouth daily LUTEIN-ZEAXANTHIN 90304283913 Active Simon Castillo MD Active IBUPROFEN 800 MG TABS Take 1 tab every 6 hrs prn IBUPROFEN 53815109090 No Longer Active Simon Castillo MD Active LISINOPRIL-HYDROCHLOROTHIAZIDE 20-12.5 MG TABS 1 tab by mouth daily LISINOPRIL-HYDROCHLOROTHIAZIDE 72165521966 Active Simon Castillo MD Active GLYBURIDE 2.5 MG TABS Take one by mouth daily GLYBURIDE 28084612355 No Longer Active Simon Castillo MD Active LANCETS MISC 2 qd LANCETS 52464403421 Active Pamela Conde Active ACACIA CONTOUR TEST STRP Use with testing twice daily GLUCOSE BLOOD 99595513837 Active Pamela Conde Active ACACIA ASPIRIN 325 MG TABS Take one by mouth daily ASPIRIN 77006755409 Active Pamela Conde Active GLYBURIDE 2.5 MG TABS Take one by mouth daily GLYBURIDE 2.5 MG TABS 359240 GLYBURIDE Inactive PREDNISONE 20 MG TAB 2 tabs daily for 4 days, 1 tab daily for 4 days, 1/2 tab daily for 4 days PREDNISONE 20 MG TAB 927407 PREDNISONE Inactive SYMBICORT 80-4.5 MCG/ACT AERO 2 puffs twice a day SYMBICORT 80-4.5 MCG/ACT AERO BUDESONIDE-FORMOTEROL FUMARATE Inactive FLONASE 50 MCG/ACT SUSP 2 puffs in each nostril daily FLONASE 50 MCG/ACT SUSP 354443 FLUTICASONE PROPIONATE Inactive ATENOLOL 50 MG TABS Take one by mouth daily ATENOLOL 50 MG TABS 537781 ATENOLOL Inactive CETIRIZINE HCL 10 MG TABS 1 po qd as needed for allergies CETIRIZINE HCL 10 MG TABS 9325373 CETIRIZINE HCL Inactive LEVAQUIN 750 MG TABS 1 po qod x 5 doses LEVAQUIN 750 MG TABS 617294 LEVOFLOXACIN Inactive GLYBURIDE 5 MG TAB Take one by mouth daily GLYBURIDE 5 MG TAB 312892 GLYBURIDE Inactive PREDNISONE 5 MG TAB Take one po qod PREDNISONE 5 MG TAB 377506 PREDNISONE Inactive AMOXICILLIN 500 MG CAPS 2 po BID x 10 days AMOXICILLIN 500 MG CAPS 335128 AMOXICILLIN Inactive GLYBURIDE 5 MG TAB Take one by mouth daily GLYBURIDE 5 MG TAB 003477 GLYBURIDE Inactive Immunizations Vaccine Administration Date Value [...] Panel - Chemistry sodium, serum 137 mmol/L 203-684 5123/06/26 potassium, serum 5.7 mmol/L 3.5-5.2 chloride, serum 104 mmol/L 98-107 carbon dioxide, venous blood 21.2 mmol/L 21.0-32.0 blood glucose 129 mg/dL 65-110 calcium, serum 9.0 mg/dL 8.5-10.1 urea nitrogen, blood 67 mg/dL 7-18 creatinine, serum 3.30 mg/dL 0.60-1.30 sodium, serum 140 mmol/L 279-918 0648/07/10 potassium, serum 5.3 mmol/L 3.5-5.2 chloride, serum 105 mmol/L 98-107 carbon dioxide, venous blood 25.5 mmol/L 21.0-32.0 blood glucose 119 mg/dL 65-110 calcium, serum 8.9 mg/dL 8.5-10.1 urea nitrogen, blood 44 mg/dL 7-18 creatinine, serum 2.50 mg/dL 0.60-1.30 Lab Report: CBC W/DIFF, Comp. Metabolic Panel - Chemistry sodium, serum 137 mmol/L 785-738 9712/06/18 potassium, serum 5.3 mmol/L 3.5-5.2 chloride, serum [...] 7.2 % 4.3-6.0 sodium, serum 137 mmol/L 847-930 8993/01/23 potassium, serum 5.2 mmol/L 3.5-5.2 chloride, serum [...] mg/dL Encounters Code Encounter Date Provider Facility CPT-39665 Level 4 Est. Patient 11:48:19 CDT Simon Castillo MD [facility] CPT-24817 Level 4 Est. Patient 08:59:29 CDT Simon Castillo MD [facility] CPT-70964 Level 4 Est. Patient 10:52:51 PROFESSIONAL SYSTEM ADMINISTRATOR Simon Castillo MD [facility] CPT-75154 Level 4 Est. Patient 11:50:30 CDT Simon Castillo MD [facility] CPT-81127 Level 4 Est. Patient 09:54:46 CDT Simon Castillo MD [facility] CPT-78962 Level 3 Est. Patient 11:10:14 CDT Simon Castillo MD [facility] CPT-98778 Level 4 Est. Patient 09:44:02 CDT Simon Castillo MD [facility] CPT-89064 Level 3 Est. Patient 09:27:48 CDT Simon Castillo MD [facility] CPT-96290 Level 3 Est. Patient 09:58:06 PROFESSIONAL SYSTEM ADMINISTRATOR Simon Castillo MD [facility] CPT-73908 Level 3 Est. Patient 09:51:35 CDT Simon Castillo MD [facility] Procedures Code Procedure Name Date Entry Date Standard Description CPT-Cryo Cryotherapy 11:48:20 CDT CPT-43776 EKG Trac and Interp 09:21:58 CDT CPT-29340 Chest 2V Frontal and Lat 09:21:58 CDT CPT-Cryo Cryotherapy 10:54:51 PROFESSIONAL SYSTEM ADMINISTRATOR CPT-45558 Administration 2+ single or combination vaccines inc oral 10:42:19 CDT CPT-32584 Administration single or combination vaccine inc oral 10 :42:19 CDT CPT-94536 Pneumovax 10:42:19 CDT CPT-70875 Influenza High Dose age 65+ 10:42:19 CDT CPT-69113 Administration single or combination vaccine inc oral 13 :18:54 CDT CPT-89955 Influenza High Dose age 65+ 13:18:54 CDT CPT-24662 Venipuncture Draw Fee 11:53:16 CDT CPT-33555 LS spine comp w obliq 11:03:13 CDT CPT-Cryo Cryotherapy 08:27:16 PROFESSIONAL SYSTEM ADMINISTRATOR CPT-77073 Administration single or combination vaccine inc oral 10 :56:34 CDT CPT-46962 Influenza High Dose age 65+ 10:56:34 CDT
--- OUTSIDE RECORDS SUMMARY | 2018-03-31 19:50 | XMS REPORT | Clinical Summary ---
Author Author Admin, RAFFI Organization [facility] Address Unknown Phone Unavailable Allergies, Adverse [...] 6.25 MG TABS 1 po BID CARVEDILOL 48805773190 Active Simon Castillo MD Active LISINOPRIL-HYDROCHLOROTHIAZIDE 20-12.5 MG TABS 1/2 tab by mouth daily LISINOPRIL-HYDROCHLOROTHIAZIDE 68745707492 Active Simon Castillo MD Active PREDNISONE 5 MG TABS 1 po qod PREDNISONE 86897426548 Active Simon Castillo MD Active TRAMADOL HCL 50 MG TABS 1-2 tablets every 6 hours as needed for pain TRAMADOL HCL 10255697822 Active Simon Castillo MD Active PREDNISONE 5 MG TAB Take one po qod PREDNISONE 72619227193 No Longer Active Simon Castillo MD Active GLYBURIDE 5 MG TAB Take one by mouth daily GLYBURIDE 95853944694 No Longer Active Simon Castillo MD Active LEVAQUIN 750 MG TABS 1 po qod x 5 doses LEVOFLOXACIN 17445502044 No Longer Active Simon Castillo MD Active CETIRIZINE HCL 10 MG TABS 1 po qd as needed for allergies CETIRIZINE HCL 07134722082 No Longer Active Simon Castillo MD Active FISH OIL 1000 MG CPDR 1 pill by mouth twice daily for cholesterol OMEGA -3 FATTY ACIDS 80349031599 Active Simon Castillo MD Active BILBERRY CAPS 1 tab daily BILBERRY (VACCINIUM MYRTILLUS) CAPS 73986724574 Active Simon Castillo MD Active ATENOLOL 50 MG TABS Take one by mouth daily ATENOLOL 06958195638 No Longer Active Simon Castillo MD Active FLONASE 50 MCG/ACT SUSP 2 puffs in each nostril daily FLUTICASONE PROPIONATE 28199626526 No Longer Active Simon Castillo MD Active GLYBURIDE 5 MG TAB Take one by mouth daily GLYBURIDE 71168428793 No Longer Active Simon Castillo MD Active SYMBICORT 80-4.5 MCG/ACT AERO 2 puffs twice a day BUDESONIDE-FORMOTEROL FUMARATE 98867306267 No Longer Active Simon Castillo MD Active PREDNISONE 20 MG TAB 2 tabs daily for 4 days, 1 tab daily for 4 days, 1/2 tab daily for 4 days PREDNISONE 77733168184 No Longer Active Simon Castillo MD Active AMOXICILLIN 500 MG CAPS 2 po BID x 10 days AMOXICILLIN 79697975945 No Longer Active Simon Castillo MD Active METFORMIN HCL 1000 MG TABS 1 by mounth twice a day METFORMIN HCL 33955595594 Active Simon Castillo MD Active LUTEIN-ZEAXANTHIN 6-1 MG TABS Take 2 by mouth daily LUTEIN-ZEAXANTHIN 67608227709 Active Simon Castillo MD Active IBUPROFEN 800 MG TABS Take 1 tab every 6 hrs prn IBUPROFEN 76631298568 No Longer Active Simon Castillo MD Active GLYBURIDE 2.5 MG TABS Take one by mouth daily GLYBURIDE 43136494386 No Longer Active Simon Castillo MD Active LANCETS MISC 2 qd LANCETS 30993184463 Active Pamela Conde Active ACACIA CONTOUR TEST STRP Use with testing twice daily GLUCOSE BLOOD 02852516916 Active Pamela Conde Active ACACIA ASPIRIN 325 MG TABS Take one by mouth daily ASPIRIN 98602249273 Active Pamela Conde Active GLYBURIDE 2.5 MG TABS Take one by mouth daily GLYBURIDE 2.5 MG TABS 465761 GLYBURIDE Inactive PREDNISONE 20 MG TAB 2 tabs daily for 4 days, 1 tab daily for 4 days, 1/2 tab daily for 4 days PREDNISONE 20 MG TAB 975408 PREDNISONE Inactive SYMBICORT 80-4.5 MCG/ACT AERO 2 puffs twice a day SYMBICORT 80-4.5 MCG/ACT AERO BUDESONIDE-FORMOTEROL FUMARATE Inactive FLONASE 50 MCG/ACT SUSP 2 puffs in each nostril daily FLONASE 50 MCG/ACT SUSP 410559 FLUTICASONE PROPIONATE Inactive ATENOLOL 50 MG TABS Take one by mouth daily ATENOLOL 50 MG TABS 624999 ATENOLOL Inactive CETIRIZINE HCL 10 MG TABS 1 po qd as needed for allergies CETIRIZINE HCL 10 MG TABS 9455847 CETIRIZINE HCL Inactive LEVAQUIN 750 MG TABS 1 po qod x 5 doses LEVAQUIN 750 MG TABS 557392 LEVOFLOXACIN Inactive GLYBURIDE 5 MG TAB Take one by mouth daily GLYBURIDE 5 MG TAB 471034 GLYBURIDE Inactive PREDNISONE 5 MG TAB Take one po qod PREDNISONE 5 MG TAB 476632 PREDNISONE Inactive AMOXICILLIN 500 MG CAPS 2 po BID x 10 days AMOXICILLIN 500 MG CAPS 440497 AMOXICILLIN Inactive GLYBURIDE 5 MG TAB Take one by mouth daily GLYBURIDE 5 MG TAB 320987 GLYBURIDE Inactive Immunizations Vaccine Administration Date Value [...] Panel - Chemistry sodium, serum 137 mmol/L 035-392 7791/06/26 potassium, serum 5.7 mmol/L 3.5-5.2 chloride, serum 104 mmol/L 98-107 carbon dioxide, venous blood 21.2 mmol/L 21.0-32.0 blood glucose 129 mg/dL 65-110 calcium, serum 9.0 mg/dL 8.5-10.1 urea nitrogen, blood 67 mg/dL 7-18 creatinine, serum 3.30 mg/dL 0.60-1.30 sodium, serum 140 mmol/L 063-158 1139/07/10 potassium, serum 5.3 mmol/L 3.5-5.2 chloride, serum 105 mmol/L 98-107 carbon dioxide, venous blood 25.5 mmol/L 21.0-32.0 blood glucose 119 mg/dL 65-110 calcium, serum 8.9 mg/dL 8.5-10.1 urea nitrogen, blood 44 mg/dL 7-18 creatinine, serum 2.50 mg/dL 0.60-1.30 Lab Report: CBC W/DIFF, Comp. Metabolic Panel - Chemistry sodium, serum 137 mmol/L 483-022 8687/06/18 potassium, serum 5.3 mmol/L 3.5-5.2 chloride, serum [...] Panel - Chemistry sodium, serum 137 mmol/L 187-908 3821/10/14 potassium, serum 5.6 mmol/L 3.5-5.2 chloride, serum [...] 6.9 % 4.3-6.0 sodium, serum 137 mmol/L 583-372 9452/08/21 potassium, serum 5.3 mmol/L 3.5-5.2 chloride, serum [...] 7.2 % 4.3-6.0 sodium, serum 137 mmol/L 740-539 7379/01/23 potassium, serum 5.2 mmol/L 3.5-5.2 chloride, serum [...] Panel - Chemistry sodium, serum 139 mmol/L 739-474 7533/10/21 creatinine, serum 2.60 mg/dL 0.60-1.30 calcium, serum 8.6 mg/dL 8.5-10.1 potassium, serum 4.7 mmol/L 3.5-5.2 chloride, serum 104 mmol/L 98-107 carbon dioxide, venous blood 26.1 mmol/L 21.0-32.0 blood glucose 148 mg/dL 65-110 urea nitrogen, blood 38 mg/dL 7-18 Lab Report: UADIP W/MICRO, AUTO - Chemistry [...] mg/dL Encounters Code Encounter Date Provider Facility CPT-10058 Level 4 Est. Patient 10:10:09 CANDLE MOLDER HAND Simon Castillo MD [facility] CPT-33646 Level 4 Est. Patient 11:48:19 CDT Simon Castillo MD [facility] CPT-86652 Level 4 Est. Patient 08:59:29 CDT Simon Castillo MD [facility] CPT-24003 Level 4 Est. Patient 10:52:51 CANDLE MOLDER HAND Simon Castillo MD [facility] CPT-34353 Level 4 Est. Patient 11:50:30 CDT Simon Castillo MD [facility] CPT-68254 Level 4 Est. Patient 09:54:46 CDT Simon Castillo MD [facility] CPT-94366 Level 3 Est. Patient 11:10:14 CDT Simon Castillo MD [facility] CPT-23552 Level 4 Est. Patient 09:44:02 CDT Simon Castillo MD [facility] CPT-03634 Level 3 Est. Patient 09:27:48 CDT Simon Castillo MD [facility] CPT-32207 Level 3 Est. Patient 09:58:06 CANDLE MOLDER HAND Simon Castillo MD [facility] CPT-32443 Level 3 Est. Patient 09:51:35 CDT Simon Castillo MD [facility] Procedures Code Procedure Name Date Entry Date Standard Description CPT-49761 Venipuncture Draw Fee 09:02:51 CANDLE MOLDER HAND CPT-17428 Venipuncture Draw Fee 12:45:08 CANDLE MOLDER HAND CPT-29613 Venipuncture Draw Fee 09:25:31 CDT CPT-G0008 Administration of Influenza Virus Vaccine 14:41:29 CDT CPT-00271 Fluzone High-Dose Intramuscular Suspension 14:41:29 CDT CPT-Cryo Cryotherapy 11:48:20 CDT CPT-37612 EKG Trac and Interp 09:21:58 CDT CPT-30962 Chest 2V Frontal and Lat 09:21:58 CDT CPT-Cryo Cryotherapy 10:54:51 CANDLE MOLDER [employer] CPT-96484 Administration 2+ single or combination vaccines inc oral 10:42:19 CDT CPT-34360 Administration single or combination vaccine inc oral 10 :42:19 CDT CPT-68553 Pneumovax 10:42:19 CDT CPT-48414 Influenza High Dose age 65+ 10:42:19 CDT CPT-85301 Administration single or combination vaccine inc oral 13 :18:54 CDT CPT-92708 Influenza High Dose age 65+ 13:18:54 CDT CPT-34975 Venipuncture Draw Fee 11:53:16 CDT CPT-02120 LS spine comp w obliq 11:03:13 CDT CPT-Cryo Cryotherapy 08:27:16 CANDLE MOLDER [employer] CPT-74908 Administration single or combination vaccine inc oral 10 :56:34 CDT CPT-29561 Influenza High Dose age 65+ 10:56:34 CDT
--- OUTSIDE RECORDS SUMMARY | 2018-03-31 19:50 | XMS REPORT | Clinical Summary ---
Author Author Admin, RAFFI Organization [facility] Address Unknown Phone Unavailable Allergies, Adverse [...] hours as needed for pain TRAMADOL HCL 85327549707 Active Simon Castillo MD Active PREDNISONE 5 MG TAB Take one po qod PREDNISONE 57309743694 No Longer Active Simon Castillo MD Active GLYBURIDE 5 MG TAB Take one by mouth daily GLYBURIDE 44875853898 No Longer Active Simon Castillo MD Active LEVAQUIN 750 MG TABS 1 po qod x 5 doses LEVOFLOXACIN 16887224047 No Longer Active Simon Castillo MD Active CETIRIZINE HCL 10 MG TABS 1 po qd as needed for allergies CETIRIZINE HCL 66429001603 No Longer Active Simon Castillo MD Active FISH OIL 1000 MG CPDR 1 pill by mouth twice daily for cholesterol OMEGA -3 FATTY ACIDS 07260225630 Active Simon Castillo MD Active BILBERRY CAPS 1 tab daily BILBERRY (VACCINIUM MYRTILLUS) CAPS 29541800408 Active Simon Castillo MD Active ATENOLOL 50 MG TABS Take one by mouth daily ATENOLOL 11965505343 No Longer Active Simon Castillo MD Active FLONASE 50 MCG/ACT SUSP 2 puffs in each nostril daily FLUTICASONE PROPIONATE 04246848860 No Longer Active Simon Castillo MD Active GLYBURIDE 5 MG TAB Take one by mouth daily GLYBURIDE 70755800822 No Longer Active Simon Castillo MD Active SYMBICORT 80-4.5 MCG/ACT AERO 2 puffs twice a day BUDESONIDE-FORMOTEROL FUMARATE 82905971426 No Longer Active Simon Castillo MD Active PREDNISONE 20 MG TAB 2 tabs daily for 4 days, 1 tab daily for 4 days, 1/2 tab daily for 4 days PREDNISONE 50048577204 No Longer Active Simon Castillo MD Active AMOXICILLIN 500 MG CAPS 2 po BID x 10 days AMOXICILLIN 41682230554 No Longer Active Simon aCstillo MD Active METFORMIN HCL 1000 MG TABS 1 by mounth twice a day METFORMIN HCL 71980797372 Active Simon Castillo MD Active LUTEIN-ZEAXANTHIN 6-1 MG TABS Take 2 by mouth daily LUTEIN-ZEAXANTHIN 03968998110 Active Simon Castillo MD Active IBUPROFEN 800 MG TABS Take 1 tab every 6 hrs prn IBUPROFEN 84461698010 No Longer Active Simon Castillo MD Active LISINOPRIL-HYDROCHLOROTHIAZIDE 20-12.5 MG TABS 1 tab by mouth daily LISINOPRIL-HYDROCHLOROTHIAZIDE 84908566671 Active Simon Castillo MD Active GLYBURIDE 2.5 MG TABS Take one by mouth daily GLYBURIDE 31431134610 No Longer Active Simon Castillo MD Active LANCETS MISC 2 qd LANCETS 63424702244 Active Pamela Conde Active ACACIA CONTOUR TEST STRP Use with testing twice daily GLUCOSE BLOOD 63522156286 Active Pamela Conde Active ACACIA ASPIRIN 325 MG TABS Take one by mouth daily ASPIRIN 18309396811 Active Pamela Conde Active GLYBURIDE 2.5 MG TABS Take one by mouth daily GLYBURIDE 2.5 MG TABS 756111 GLYBURIDE Inactive PREDNISONE 20 MG TAB 2 tabs daily for 4 days, 1 tab daily for 4 days, 1/2 tab daily for 4 days PREDNISONE 20 MG TAB 252315 PREDNISONE Inactive SYMBICORT 80-4.5 MCG/ACT AERO 2 puffs twice a day SYMBICORT 80-4.5 MCG/ACT AERO BUDESONIDE-FORMOTEROL FUMARATE Inactive FLONASE 50 MCG/ACT SUSP 2 puffs in each nostril daily FLONASE 50 MCG/ACT SUSP 674523 FLUTICASONE PROPIONATE Inactive ATENOLOL 50 MG TABS Take one by mouth daily ATENOLOL 50 MG TABS 287566 ATENOLOL Inactive CETIRIZINE HCL 10 MG TABS 1 po qd as needed for allergies CETIRIZINE HCL 10 MG TABS 8927178 CETIRIZINE HCL Inactive LEVAQUIN 750 MG TABS 1 po qod x 5 doses LEVAQUIN 750 MG TABS 191268 LEVOFLOXACIN Inactive GLYBURIDE 5 MG TAB Take one by mouth daily GLYBURIDE 5 MG TAB 238928 GLYBURIDE Inactive PREDNISONE 5 MG TAB Take one po qod PREDNISONE 5 MG TAB 213123 PREDNISONE Inactive AMOXICILLIN 500 MG CAPS 2 po BID x 10 days AMOXICILLIN 500 MG CAPS 723742 AMOXICILLIN Inactive GLYBURIDE 5 MG TAB Take one by mouth daily GLYBURIDE 5 MG TAB 496872 GLYBURIDE Inactive Immunizations Vaccine Administration Date Value [...] Panel - Chemistry sodium, serum 137 mmol/L 353-146 3835/06/26 potassium, serum 5.7 mmol/L 3.5-5.2 chloride, serum 104 mmol/L 98-107 carbon dioxide, venous blood 21.2 mmol/L 21.0-32.0 blood glucose 129 mg/dL 65-110 calcium, serum 9.0 mg/dL 8.5-10.1 urea nitrogen, blood 67 mg/dL 7-18 creatinine, serum 3.30 mg/dL 0.60-1.30 sodium, serum 140 mmol/L 235-101 5300/07/10 potassium, serum 5.3 mmol/L 3.5-5.2 chloride, serum 105 mmol/L 98-107 carbon dioxide, venous blood 25.5 mmol/L 21.0-32.0 blood glucose 119 mg/dL 65-110 calcium, serum 8.9 mg/dL 8.5-10.1 urea nitrogen, blood 44 mg/dL 7-18 creatinine, serum 2.50 mg/dL 0.60-1.30 Lab Report: CBC W/DIFF, Comp. Metabolic Panel - Chemistry sodium, serum 137 mmol/L 792-882 1731/06/18 potassium, serum 5.3 mmol/L 3.5-5.2 chloride, serum [...] 6.9 % 4.3-6.0 sodium, serum 137 mmol/L 430-594 8934/08/21 potassium, serum 5.3 mmol/L 3.5-5.2 chloride, serum [...] 7.2 % 4.3-6.0 sodium, serum 137 mmol/L 099-571 0603/01/23 potassium, serum 5.2 mmol/L 3.5-5.2 chloride, serum 102 mmol/L 98-107 carbon dioxide, venous blood 22.9 mmol/L 21.0-32.0 blood glucose 142 mg/dL 65-110 urea nitrogen, blood 43 mg/dL 7-18 creatinine, serum 2.20 mg/dL 0.60-1.30 bilirubin, serum, total 0.70 mg/dL 0.00-1.00 prostate specific antigen 1.73 ng/mL 0.00-4.00 calcium, serum 9.2 mg/dL 8.5-10.1 alkaline phosphatase, serum 109 U/L 50-136 aspartate aminotransferase (SGOT), serum 19 U/L 15-37 alanine aminotransferase (SGPT), serum 26 U/L 12-78 Lab Report: HGBA1C, CBC W/DIFF, Comp. Metabolic [...] mg/dL Encounters Code Encounter Date Provider Facility CPT-55637 Level 4 Est. Patient 11:48:19 CDT Simon Castillo MD [facility] CPT-79239 Level 4 Est. Patient 08:59:29 CDT Simon Castillo MD [facility] CPT-58598 Level 4 Est. Patient 10:52:51 [employer] Simon Castillo MD [facility] CPT-56425 Level 4 Est. Patient 11:50:30 CDT Simon Castillo MD [facility] CPT-26316 Level 4 Est. Patient 09:54:46 CDT Simon Castillo MD [facility] CPT-04281 Level 3 Est. Patient 11:10:14 CDT Simon Castillo MD [facility] CPT-70959 Level 4 Est. Patient 09:44:02 CDT Simon Castillo MD [facility] CPT-99916 Level 3 Est. Patient 09:27:48 CDT Simon Castillo MD [facility] CPT-35174 Level 3 Est. Patient 09:58:06 [employer] Simon Castillo MD [facility] CPT-27451 Level 3 Est. Patient 09:51:35 CDT Simon Castillo MD [facility] Procedures Code Procedure Name Date Entry Date Standard Description CPT-Cryo Cryotherapy 11:48:20 CDT CPT-09715 EKG Trac and Interp 09:21:58 CDT CPT-21003 Chest 2V Frontal and Lat 09:21:58 CDT CPT-Cryo Cryotherapy 10:54:51 [employer] CPT-55169 Administration 2+ single or combination vaccines inc oral 10:42:19 CDT CPT-41359 Administration single or combination vaccine inc oral 10 :42:19 CDT CPT-33323 Pneumovax 10:42:19 CDT CPT-66696 Influenza High Dose age 65+ 10:42:19 CDT CPT-66110 Administration single or combination vaccine inc oral 13 :18:54 CDT CPT-52064 Influenza High Dose age 65+ 13:18:54 CDT CPT-76284 Venipuncture Draw Fee 11:53:16 CDT CPT-67515 LS spine comp w obliq 11:03:13 CDT CPT-Cryo Cryotherapy 08:27:16 [employer] CPT-72404 Administration single or combination vaccine inc oral 10 :56:34 CDT CPT-50688 Influenza High Dose age 65+ 10:56:34 CDT
--- OUTSIDE RECORDS SUMMARY | 2018-03-31 19:51 | XMS REPORT | Clinical Summary ---
Author Author Admin, RAFFI Organization [facility] Address Unknown [...] CHRONIC KIDNEY DISEASE UNSPECIFIED 585.9 Active Simon Catsillo MD Chronic kidney disease, unspecified ABDOMINAL PAIN [...] hours as needed for pain TRAMADOL HCL 01361090903 Active Simon Castillo MD Active PREDNISONE 5 MG TAB Take one po qod PREDNISONE 34546276461 No Longer Active Simon Castillo MD Active GLYBURIDE 5 MG TAB Take one by mouth daily GLYBURIDE 83498770687 No Longer Active Simon Castillo MD Active LEVAQUIN 750 MG TABS 1 po qod x 5 doses LEVOFLOXACIN 75846688752 No Longer Active Simon Castillo MD Active CETIRIZINE HCL 10 MG TABS 1 po qd as needed for allergies CETIRIZINE HCL 27073501390 No Longer Active Simon Castillo MD Active FISH OIL 1000 MG CPDR 1 pill by mouth twice daily for cholesterol OMEGA -3 FATTY ACIDS 74524645141 Active Simon Castillo MD Active BILBERRY CAPS 1 tab daily BILBERRY (VACCINIUM MYRTILLUS) CAPS 66068603500 Active Simon Castillo MD Active ATENOLOL 50 MG TABS Take one by mouth daily ATENOLOL 37197840901 No Longer Active Simon Castillo MD Active FLONASE 50 MCG/ACT SUSP 2 puffs in each nostril daily FLUTICASONE PROPIONATE 58972137501 No Longer Active Simon Castillo MD Active GLYBURIDE 5 MG TAB Take one by mouth daily GLYBURIDE 68218090030 No Longer Active Simon Castillo MD Active SYMBICORT 80-4.5 MCG/ACT AERO 2 puffs twice a day BUDESONIDE-FORMOTEROL FUMARATE 76928404745 No Longer Active Simon Castillo MD Active PREDNISONE 20 MG TAB 2 tabs daily for 4 days, 1 tab daily for 4 days, 1/2 tab daily for 4 days PREDNISONE 85029059021 No Longer Active Simon Castillo MD Active AMOXICILLIN 500 MG CAPS 2 po BID x 10 days AMOXICILLIN 23710115789 No Longer Active Simon Castillo MD Active METFORMIN HCL 1000 MG TABS 1 by mounth twice a day METFORMIN HCL 93461935717 Active Simon Castillo MD Active LUTEIN-ZEAXANTHIN 6-1 MG TABS Take 2 by mouth daily LUTEIN-ZEAXANTHIN 27297520854 Active Simon Castillo MD Active IBUPROFEN 800 MG TABS Take 1 tab every 6 hrs prn IBUPROFEN 31072515466 No Longer Active Simon Castillo MD Active LISINOPRIL-HYDROCHLOROTHIAZIDE 20-12.5 MG TABS 1 tab by mouth daily LISINOPRIL-HYDROCHLOROTHIAZIDE 71113557975 Active Simon Castillo MD Active GLYBURIDE 2.5 MG TABS Take one by mouth daily GLYBURIDE 53115618140 No Longer Active Simon Castillo MD Active LANCETS MISC 2 qd LANCETS 86221110850 Active Pamela Conde Active ACACIA CONTOUR TEST STRP Use with testing twice daily GLUCOSE BLOOD 56521012303 Active Pamela Conde Active ACACIA ASPIRIN 325 MG TABS Take one by mouth daily ASPIRIN 76369879592 Active Pamela Conde Active GLYBURIDE 2.5 MG TABS Take one by mouth daily GLYBURIDE 2.5 MG TABS 407349 GLYBURIDE Inactive PREDNISONE 20 MG TAB 2 tabs daily for 4 days, 1 tab daily for 4 days, 1/2 tab daily for 4 days PREDNISONE 20 MG TAB 976301 PREDNISONE Inactive SYMBICORT 80-4.5 MCG/ACT AERO 2 puffs twice a day SYMBICORT 80-4.5 MCG/ACT AERO BUDESONIDE-FORMOTEROL FUMARATE Inactive FLONASE 50 MCG/ACT SUSP 2 puffs in each nostril daily FLONASE 50 MCG/ACT SUSP 054980 FLUTICASONE PROPIONATE Inactive ATENOLOL 50 MG TABS Take one by mouth daily ATENOLOL 50 MG TABS 941100 ATENOLOL Inactive CETIRIZINE HCL 10 MG TABS 1 po qd as needed for allergies CETIRIZINE HCL 10 MG TABS 6808593 CETIRIZINE HCL Inactive LEVAQUIN 750 MG TABS 1 po qod x 5 doses LEVAQUIN 750 MG TABS 985476 LEVOFLOXACIN Inactive GLYBURIDE 5 MG TAB Take one by mouth daily GLYBURIDE 5 MG TAB 124667 GLYBURIDE Inactive PREDNISONE 5 MG TAB Take one po qod PREDNISONE 5 MG TAB 760390 PREDNISONE Inactive AMOXICILLIN 500 MG CAPS 2 po BID x 10 days AMOXICILLIN 500 MG CAPS 422658 AMOXICILLIN Inactive GLYBURIDE 5 MG TAB Take one by mouth daily GLYBURIDE 5 MG TAB 918794 GLYBURIDE Inactive Immunizations Vaccine Administration Date Value Standard Description pneumococcal immunization administered Pneumovax 23 [CVX33] pneumococcal polysaccharide vaccine, 23 valent Vital Signs Date Name Value Unit Range Description blood pressure, diastolic - 8462-4 75 mm[Hg] BP csatillo blood pressure, systolic - 8480-6 132 mm[Hg] [...] Panel - Chemistry sodium, serum 137 mmol/L 079-962 8740/06/26 potassium, serum 5.7 mmol/L 3.5-5.2 chloride, serum 104 mmol/L 98-107 carbon dioxide, venous blood 21.2 mmol/L 21.0-32.0 blood glucose 129 mg/dL 65-110 calcium, serum 9.0 mg/dL 8.5-10.1 urea nitrogen, blood 67 mg/dL 7-18 creatinine, serum 3.30 mg/dL 0.60-1.30 sodium, serum 140 mmol/L 736-610 5650/07/10 potassium, serum 5.3 mmol/L 3.5-5.2 chloride, serum 105 mmol/L 98-107 carbon dioxide, venous blood 25.5 mmol/L 21.0-32.0 blood glucose 119 mg/dL 65-110 calcium, serum 8.9 mg/dL 8.5-10.1 urea nitrogen, blood 44 mg/dL 7-18 creatinine, serum 2.50 mg/dL 0.60-1.30 Lab Report: CBC W/DIFF, Comp. Metabolic Panel - Chemistry sodium, serum 137 mmol/L 043-455 2176/06/18 potassium, serum 5.3 mmol/L 3.5-5.2 chloride, serum [...] 6.9 % 4.3-6.0 sodium, serum 137 mmol/L 665-374 9476/08/21 potassium, serum 5.3 mmol/L 3.5-5.2 chloride, serum [...] 7.2 % 4.3-6.0 sodium, serum 137 mmol/L 381-308 4986/01/23 potassium, serum 5.2 mmol/L 3.5-5.2 chloride, serum [...] mg/dL Encounters Code Encounter Date Provider Facility CPT-38956 Level 4 Est. Patient 11:48:19 CDT Simon Castillo MD [facility] CPT-00668 Level 4 Est. Patient 08:59:29 CDT Simon Castillo MD [facility] CPT-61525 Level 4 Est. Patient 10:52:51 [employer] Simon Castillo MD [facility] CPT-93277 Level 4 Est. Patient 11:50:30 CDT Simon Castillo MD [facility] CPT-56027 Level 4 Est. Patient 09:54:46 CDT Simon Castillo MD [facility] CPT-53442 Level 3 Est. Patient 11:10:14 CDT Simon Castillo MD [facility] CPT-64418 Level 4 Est. Patient 09:44:02 CDT Simon Castillo MD [facility] CPT-75432 Level 3 Est. Patient 09:27:48 CDT Simon Castillo MD [facility] CPT-49243 Level 3 Est. Patient 09:58:06 [employer] Simon Castillo MD [facility] CPT-24414 Level 3 Est. Patient 09:51:35 CDT Simon Castillo MD [facility] Procedures Code Procedure Name Date Entry Date Standard Description CPT-Cryo Cryotherapy 11:48:20 CDT CPT-55416 EKG Trac and Interp 09:21:58 CDT CPT-83524 Chest 2V Frontal and Lat 09:21:58 CDT CPT-Cryo Cryotherapy 10:54:51 [employer] CPT-82220 Administration 2+ single or combination vaccines inc oral 10:42:19 CDT CPT-83646 Administration single or combination vaccine inc oral 10 :42:19 CDT CPT-82518 Pneumovax 10:42:19 CDT CPT-12051 Influenza High Dose age 65+ 10:42:19 CDT CPT-75344 Administration single or combination vaccine inc oral 13 :18:54 CDT CPT-87357 Influenza High Dose age 65+ 13:18:54 CDT CPT-54704 Venipuncture Draw Fee 11:53:16 CDT CPT-78917 LS spine comp w obliq 11:03:13 CDT CPT-Cryo Cryotherapy 08:27:16 [employer] CPT-81751 Administration single or combination vaccine inc oral 10 :56:34 CDT CPT-33699 Influenza High Dose age 65+ 10:56:34 CDT
--- OUTSIDE RECORDS SUMMARY | 2018-03-31 19:52 | XMS REPORT | Clinical Summary ---
Author Author Admin, RAFFI Organization [facility] Address Unknown Phone Unavailable Allergies, [...] whether generalized or localized, involving unspecified site FH LUNG CANCER ICD-V16.1 Inactive Simon Castillo [...] MD Cough ICD-786.2 Inactive Simon Castillo MD ABDOMINAL TENDERNESS ICD-789.60 Inactive Simon Castillo MD CHEST WALL PAIN, HX OF ICD-V15.89 Inactive Simon Castillo MD Medication List Medication Instructions Start Date Stop Date Generic Name NDC Status Provider Patient Instruction PREDNISONE 5 MG TABS 1 po qod PREDNISONE 81856944295 Active Simon Castillo MD Active TRAMADOL HCL 50 MG TABS 1-2 tablets every 6 hours as needed for pain TRAMADOL HCL 70671426119 Active Simon Castillo MD Active PREDNISONE 5 MG TAB Take one po qod PREDNISONE 20991580890 No Longer Active Simon Castillo MD Active GLYBURIDE 5 MG TAB Take one by mouth daily GLYBURIDE 47443762856 No Longer Active Simon Castillo MD Active LEVAQUIN 750 MG TABS 1 po qod x 5 doses LEVOFLOXACIN 22998474866 No Longer Active Simon Castillo MD Active CETIRIZINE HCL 10 MG TABS 1 po qd as needed for allergies CETIRIZINE HCL 24160605030 No Longer Active Simon Castillo MD Active FISH OIL 1000 MG CPDR 1 pill by mouth twice daily for cholesterol OMEGA -3 FATTY ACIDS 78094954165 Active Simon Castillo MD Active BILBERRY CAPS 1 tab daily BILBERRY (VACCINIUM MYRTILLUS) CAPS 67733553399 Active Simon Castillo MD Active ATENOLOL 50 MG TABS Take one by mouth daily ATENOLOL 20373062464 No Longer Active Simon Castillo MD Active FLONASE 50 MCG/ACT SUSP 2 puffs in each nostril daily FLUTICASONE PROPIONATE 17418992134 No Longer Active Simon Castillo MD Active GLYBURIDE 5 MG TAB Take one by mouth daily GLYBURIDE 89435200177 No Longer Active Simon Castillo MD Active SYMBICORT 80-4.5 MCG/ACT AERO 2 puffs twice a day BUDESONIDE-FORMOTEROL FUMARATE 69411953109 No Longer Active Simon Castillo MD Active PREDNISONE 20 MG TAB 2 tabs daily for 4 days, 1 tab daily for 4 days, 1/2 tab daily for 4 days PREDNISONE 15631791685 No Longer Active Simon Castillo MD Active AMOXICILLIN 500 MG CAPS 2 po BID x 10 days AMOXICILLIN 35183395785 No Longer Active Simon Castillo MD Active METFORMIN HCL 1000 MG TABS 1 by mounth twice a day METFORMIN HCL 81178921163 Active Simon Castillo MD Active LUTEIN-ZEAXANTHIN 6-1 MG TABS Take 2 by mouth daily LUTEIN-ZEAXANTHIN 28720375887 Active Simon Castillo MD Active IBUPROFEN 800 MG TABS Take 1 tab every 6 hrs prn IBUPROFEN 99657682386 No Longer Active Simon Castillo MD Active LISINOPRIL-HYDROCHLOROTHIAZIDE 20-12.5 MG TABS 1 tab by mouth daily LISINOPRIL-HYDROCHLOROTHIAZIDE 85298239034 Active Simon Castillo MD Active GLYBURIDE 2.5 MG TABS Take one by mouth daily GLYBURIDE 59599830577 No Longer Active Simon Castillo MD Active LANCETS MISC 2 qd LANCETS 62476789911 Active Pamela Conde Active ACACIA CONTOUR TEST STRP Use with testing twice daily GLUCOSE BLOOD 40315366698 Active Pamela Conde Active ACACIA ASPIRIN 325 MG TABS Take one by mouth daily ASPIRIN 95698531107 Active Pamela Conde Active GLYBURIDE 2.5 MG TABS Take one by mouth daily GLYBURIDE 2.5 MG TABS 039184 GLYBURIDE Inactive PREDNISONE 20 MG TAB 2 tabs daily for 4 days, 1 tab daily for 4 days, 1/2 tab daily for 4 days PREDNISONE 20 MG TAB 862621 PREDNISONE Inactive SYMBICORT 80-4.5 MCG/ACT AERO 2 puffs twice a day SYMBICORT 80-4.5 MCG/ACT AERO BUDESONIDE-FORMOTEROL FUMARATE Inactive FLONASE 50 MCG/ACT SUSP 2 puffs in each nostril daily FLONASE 50 MCG/ACT SUSP 915142 FLUTICASONE PROPIONATE Inactive ATENOLOL 50 MG TABS Take one by mouth daily ATENOLOL 50 MG TABS 661474 ATENOLOL Inactive CETIRIZINE HCL 10 MG TABS 1 po qd as needed for allergies CETIRIZINE HCL 10 MG TABS 3667576 CETIRIZINE HCL Inactive LEVAQUIN 750 MG TABS 1 po qod x 5 doses LEVAQUIN 750 MG TABS 369929 LEVOFLOXACIN Inactive GLYBURIDE 5 MG TAB Take one by mouth daily GLYBURIDE 5 MG TAB 451984 GLYBURIDE Inactive PREDNISONE 5 MG TAB Take one po qod PREDNISONE 5 MG TAB 534900 PREDNISONE Inactive AMOXICILLIN 500 MG CAPS 2 po BID x 10 days AMOXICILLIN 500 MG CAPS 404943 AMOXICILLIN Inactive GLYBURIDE 5 MG TAB Take one by mouth daily GLYBURIDE 5 MG TAB 131613 GLYBURIDE Inactive Immunizations Vaccine Administration Date Value [...] Panel - Chemistry sodium, serum 137 mmol/L 333-379 5255/06/26 potassium, serum 5.7 mmol/L 3.5-5.2 chloride, serum 104 mmol/L 98-107 carbon dioxide, venous blood 21.2 mmol/L 21.0-32.0 blood glucose 129 mg/dL 65-110 calcium, serum 9.0 mg/dL 8.5-10.1 urea nitrogen, blood 67 mg/dL 7-18 creatinine, serum 3.30 mg/dL 0.60-1.30 sodium, serum 140 mmol/L 802-639 4224/07/10 potassium, serum 5.3 mmol/L 3.5-5.2 chloride, serum 105 mmol/L 98-107 carbon dioxide, venous blood 25.5 mmol/L 21.0-32.0 blood glucose 119 mg/dL 65-110 calcium, serum 8.9 mg/dL 8.5-10.1 urea nitrogen, blood 44 mg/dL 7-18 creatinine, serum 2.50 mg/dL 0.60-1.30 Lab Report: CBC W/DIFF, Comp. Metabolic Panel - Chemistry sodium, serum 137 mmol/L 141-161 2571/06/18 potassium, serum 5.3 mmol/L 3.5-5.2 chloride, serum [...] Panel - Chemistry sodium, serum 137 mmol/L 210-706 2384/10/14 potassium, serum 5.6 mmol/L 3.5-5.2 chloride, serum [...] 6.9 % 4.3-6.0 sodium, serum 137 mmol/L 684-825 8912/08/21 potassium, serum 5.3 mmol/L 3.5-5.2 chloride, serum [...] 7.2 % 4.3-6.0 sodium, serum 137 mmol/L 361-108 4409/01/23 potassium, serum 5.2 mmol/L 3.5-5.2 chloride, serum [...] Panel - Chemistry sodium, serum 139 mmol/L 112-138 9238/10/21 potassium, serum 4.7 mmol/L 3.5-5.2 chloride, serum [...] mg/dL Encounters Code Encounter Date Provider Facility CPT-90294 Level 4 Est. Patient 11:48:19 CDT Simon Castillo MD [facility] CPT-33857 Level 4 Est. Patient 08:59:29 CDT Simon Castillo MD [facility] CPT-29451 Level 4 Est. Patient 10:52:51 [employer] CUSTODIAN Simon Castillo MD [facility] CPT-40308 Level 4 Est. Patient 11:50:30 CDT Simon Castillo MD [facility] CPT-79737 Level 4 Est. Patient 09:54:46 CDT Simon Castillo MD [facility] CPT-33183 Level 3 Est. Patient 11:10:14 CDT Simon Castillo MD [facility] CPT-01829 Level 4 Est. Patient 09:44:02 CDT Simon Castillo MD [facility] CPT-52114 Level 3 Est. Patient 09:27:48 CDT Simon Castillo MD [facility] CPT-07027 Level 3 Est. Patient 09:58:06 [employer] CUSTODIAN Simon Castillo MD [facility] CPT-38441 Level 3 Est. Patient 09:51:35 CDT Simon Castillo MD [facility] Procedures Code Procedure Name Date Entry Date Standard Description CPT-86979 Venipuncture Draw Fee 09:25:31 CDT CPT-G0008 Administration of Influenza Virus Vaccine 14:41:29 CDT CPT-06260 Fluzone High-Dose Intramuscular Suspension 14:41:29 CDT CPT-Cryo Cryotherapy 11:48:20 CDT CPT-14134 EKG Trac and Interp 09:21:58 CDT CPT-43191 Chest 2V Frontal and Lat 09:21:58 CDT CPT-Cryo Cryotherapy 10:54:51 [employer] CPT-59408 Administration 2+ single or combination vaccines inc oral 10:42:19 CDT CPT-13034 Administration single or combination vaccine inc oral 10 :42:19 CDT CPT-28435 Pneumovax 10:42:19 CDT CPT-07418 Influenza High Dose age 65+ 10:42:19 CDT CPT-96111 Administration single or combination vaccine inc oral 13 :18:54 CDT CPT-47681 Influenza High Dose age 65+ 13:18:54 CDT CPT-35798 Venipuncture Draw Fee 11:53:16 CDT CPT-28678 LS spine comp w obliq 11:03:13 CDT CPT-Cryo Cryotherapy 08:27:16 [employer]ODIAN CPT-01824 Administration single or combination vaccine inc oral 10 :56:34 CDT CPT-11146 Influenza High Dose age 65+ 10:56:34 CDT
--- OUTSIDE RECORDS SUMMARY | 2018-03-31 19:53 | XMS REPORT | Clinical Summary ---
Author Author Admin, RAFFI Organization [facility] Address Unknown Phone Unavailable [...] MG TABS 1 po q a.m. GLIMEPIRIDE 54401422591 Active Simon Castillo MD Active CARVEDILOL 6.25 MG TABS 1 po BID CARVEDILOL 04029339892 Active Simon Castillo MD Active LISINOPRIL-HYDROCHLOROTHIAZIDE 20-12.5 MG TABS 1/2 tab by mouth daily LISINOPRIL-HYDROCHLOROTHIAZIDE 76910730109 Active Simon Castillo MD Active PREDNISONE 5 MG TABS 1 po qod PREDNISONE 61566280414 Active Simon Castillo MD Active TRAMADOL HCL 50 MG TABS 1-2 tablets every 6 hours as needed for pain TRAMADOL HCL 66235681595 Active Simon Castillo MD Active PREDNISONE 5 MG TAB Take one po qod PREDNISONE 49265667768 No Longer Active Simon Castillo MD Active GLYBURIDE 5 MG TAB Take one by mouth daily GLYBURIDE 45335819749 No Longer Active Simon Castillo MD Active LEVAQUIN 750 MG TABS 1 po qod x 5 doses LEVOFLOXACIN 87501718211 No Longer Active Simon Castillo MD Active CETIRIZINE HCL 10 MG TABS 1 po qd as needed for allergies CETIRIZINE HCL 38670886622 No Longer Active Simon Castillo MD Active FISH OIL 1000 MG CPDR 1 pill by mouth twice daily for cholesterol OMEGA -3 FATTY ACIDS 61788020838 Active Simon Castillo MD Active BILBERRY CAPS 1 tab daily BILBERRY (VACCINIUM MYRTILLUS) CAPS 99900153164 Active Simon Castillo MD Active ATENOLOL 50 MG TABS Take one by mouth daily ATENOLOL 23168933889 No Longer Active Simon Castillo MD Active FLONASE 50 MCG/ACT SUSP 2 puffs in each nostril daily FLUTICASONE PROPIONATE 07555083284 No Longer Active Simon Castillo MD Active GLYBURIDE 5 MG TAB Take one by mouth daily GLYBURIDE 77747304498 No Longer Active Simon Castillo MD Active SYMBICORT 80-4.5 MCG/ACT AERO 2 puffs twice a day BUDESONIDE-FORMOTEROL FUMARATE 48632224543 No Longer Active Simon Castillo MD Active PREDNISONE 20 MG TAB 2 tabs daily for 4 days, 1 tab daily for 4 days, 1/2 tab daily for 4 days PREDNISONE 22058725405 No Longer Active Simon Castillo MD Active AMOXICILLIN 500 MG CAPS 2 po BID x 10 days AMOXICILLIN 06917939786 No Longer Active Simon Castillo MD Active METFORMIN HCL 1000 MG TABS 1 by mounth twice a day METFORMIN HCL 05123490263 No Longer Active Simon Castillo MD Active LUTEIN-ZEAXANTHIN 6-1 MG TABS Take 2 by mouth daily LUTEIN-ZEAXANTHIN 39488532130 Active Simon Castillo MD Active IBUPROFEN 800 MG TABS Take 1 tab every 6 hrs prn IBUPROFEN 30116621100 No Longer Active Simon Castillo MD Active GLYBURIDE 2.5 MG TABS Take one by mouth daily GLYBURIDE 19137273914 No Longer Active Simon Castillo MD Active LANCETS MISC 2 qd LANCETS 69413071724 Active Pamela Conde Active ACACIA CONTOUR TEST STRP Use with testing twice daily GLUCOSE BLOOD 66280284906 Active Pamela Conde Active ACACIA ASPIRIN 325 MG TABS Take one by mouth daily ASPIRIN 81215929919 Active Pamela Conde Active GLYBURIDE 2.5 MG TABS Take one by mouth daily GLYBURIDE 2.5 MG TABS 483724 GLYBURIDE Inactive PREDNISONE 20 MG TAB 2 tabs daily for 4 days, 1 tab daily for 4 days, 1/2 tab daily for 4 days PREDNISONE 20 MG TAB 745026 PREDNISONE Inactive SYMBICORT 80-4.5 MCG/ACT AERO 2 puffs twice a day SYMBICORT 80-4.5 MCG/ACT AERO BUDESONIDE-FORMOTEROL FUMARATE Inactive FLONASE 50 MCG/ACT SUSP 2 puffs in each nostril daily FLONASE 50 MCG/ACT SUSP 938829 FLUTICASONE PROPIONATE Inactive ATENOLOL 50 MG TABS Take one by mouth daily ATENOLOL 50 MG TABS 760295 ATENOLOL Inactive CETIRIZINE HCL 10 MG TABS 1 po qd as needed for allergies CETIRIZINE HCL 10 MG TABS 6597759 CETIRIZINE HCL Inactive LEVAQUIN 750 MG TABS 1 po qod x 5 doses LEVAQUIN 750 MG TABS 859742 LEVOFLOXACIN Inactive GLYBURIDE 5 MG TAB Take one by mouth daily GLYBURIDE 5 MG TAB 217904 GLYBURIDE Inactive PREDNISONE 5 MG TAB Take one po qod PREDNISONE 5 MG TAB 812662 PREDNISONE Inactive AMOXICILLIN 500 MG CAPS 2 po BID x 10 days AMOXICILLIN 500 MG CAPS 519031 AMOXICILLIN Inactive GLYBURIDE 5 MG TAB Take one by mouth daily GLYBURIDE 5 MG TAB 849505 GLYBURIDE Inactive Immunizations Vaccine Administration Date Value [...] Panel - Chemistry sodium, serum 137 mmol/L 333-844 7076/06/26 potassium, serum 5.7 mmol/L 3.5-5.2 chloride, serum 104 mmol/L 98-107 carbon dioxide, venous blood 21.2 mmol/L 21.0-32.0 blood glucose 129 mg/dL 65-110 calcium, serum 9.0 mg/dL 8.5-10.1 urea nitrogen, blood 67 mg/dL 7-18 creatinine, serum 3.30 mg/dL 0.60-1.30 sodium, serum 140 mmol/L 881-728 5725/07/10 potassium, serum 5.3 mmol/L 3.5-5.2 chloride, serum 105 mmol/L 98-107 carbon dioxide, venous blood 25.5 mmol/L 21.0-32.0 blood glucose 119 mg/dL 65-110 calcium, serum 8.9 mg/dL 8.5-10.1 urea nitrogen, blood 44 mg/dL 7-18 creatinine, serum 2.50 mg/dL 0.60-1.30 Lab Report: CBC W/DIFF, Comp. Metabolic Panel - Chemistry sodium, serum 137 mmol/L 573-379 9246/06/18 potassium, serum 5.3 mmol/L 3.5-5.2 chloride, serum [...] Panel - Chemistry sodium, serum 137 mmol/L 549-870 8023/10/14 potassium, serum 5.6 mmol/L 3.5-5.2 chloride, serum 103 mmol/L 98-107 carbon dioxide, venous blood 24.9 mmol/L 21.0-32.0 blood glucose 200 mg/dL 65-110 urea nitrogen, blood 43 mg/dL 7-18 creatinine, serum 2.60 mg/dL 0.60-1.30 calcium, serum 9.1 mg/dL 8.5-10.1 sodium, serum 139 mmol/L 964-514 6051/11/13 potassium, serum 5.8 mmol/L 3.5-5.2 chloride, serum [...] % 11.6-14.8 platelet count 214 10^3/MM^3 10*3/mm3 286-744 3695/11/13 leukocyte count, blood 9.7 10^3/MM^3 10*3/mm3 4.6-10.2 [...] 6.9 % 4.3-6.0 sodium, serum 137 mmol/L 149-653 9638/08/21 potassium, serum 5.3 mmol/L 3.5-5.2 chloride, serum [...] 7.2 % 4.3-6.0 sodium, serum 137 mmol/L 664-644 3458/01/23 potassium, serum 5.2 mmol/L 3.5-5.2 chloride, serum [...] Panel - Chemistry sodium, serum 139 mmol/L 788-597 0392/10/21 potassium, serum 4.7 mmol/L 3.5-5.2 chloride, serum 104 mmol/L 98-107 carbon dioxide, venous blood 26.1 mmol/L 21.0-32.0 blood glucose 148 mg/dL 65-110 urea nitrogen, blood 38 mg/dL 7-18 creatinine, serum 2.60 mg/dL 0.60-1.30 calcium, serum 8.6 mg/dL 8.5-10.1 sodium, serum 140 mmol/L 392-293 2047/11/17 potassium, serum 5.0 mmol/L 3.5-5.2 chloride, serum [...] mg/dL Encounters Code Encounter Date Provider Facility CPT-66213 Level 4 Est. 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 Patient 11:48:19 CDT Simon Castillo MD [facility] CPT-62683 Level 4 Est. Patient 08:59:29 CDT Simon Castillo MD [facility] CPT-66393 Level 4 Est. Patient 10:52:51 LAB[employer]ER [employer]ORATORY Simon Castillo MD [facility] CPT-33604 Level 4 Est. Patient 11:50:30 CDT Simon Castillo MD [facility] CPT-96858 Level 4 Est. Patient 09:54:46 CDT Simon Castillo MD [facility] CPT-31570 Level 3 Est. Patient 11:10:14 CDT Simon Castillo MD [facility] CPT-56899 Level 4 Est. Patient 09:44:02 CDT Simon Castillo MD [facility] CPT-72850 Level 3 Est. Patient 09:27:48 CDT Simon Castillo MD [facility] CPT-24337 Level 3 Est. Patient 09:58:06 LAB[employer]ER [employer]ORATORY Simon Castillo MD [facility] CPT-59751 Level 3 Est. Patient 09:51:35 CDT Simon Castillo MD [facility] Procedures Code Procedure Name Date Entry Date Standard Description CPT-26048 Venipuncture Draw Fee 09:02:51 [employer] CPT-56574 Venipuncture Draw Fee 12:45:08 LAB[employer] CPT-93288 Venipuncture Draw Fee 09:25:31 CDT CPT-G0008 Administration of Influenza Virus Vaccine 14:41:29 CDT CPT-75842 Fluzone High-Dose Intramuscular Suspension 14:41:29 CDT CPT-Cryo Cryotherapy 11:48:20 CDT CPT-80824 EKG Trac and Interp 09:21:58 CDT CPT-79293 Chest 2V Frontal and Lat 09:21:58 CDT CPT-Cryo Cryotherapy 10:54:51 LAB[employer]ER LABORAT[employer] CPT-04337 Administration 2+ single or combination vaccines inc oral 10:42:19 CDT CPT-12269 Administration single or combination vaccine inc oral 10 :42:19 CDT CPT-92000 Pneumovax 10:42:19 CDT CPT-87317 Influenza High Dose age 65+ 10:42:19 CDT CPT-87372 Administration single or combination vaccine inc oral 13 :18:54 CDT CPT-03316 Influenza High Dose age 65+ 13:18:54 CDT CPT-54328 Venipuncture Draw Fee 11:53:16 CDT CPT-20919 LS spine comp w obliq 11:03:13 CDT CPT-Cryo Cryotherapy 08:27:16 LAB[employer]ER LABORATORY CPT-84095 Administration single or combination vaccine inc oral 10 :56:34 CDT CPT-27193 Influenza High Dose age 65+ 10:56:34 CDT
--- OUTSIDE RECORDS SUMMARY | 2018-03-31 19:54 | XMS REPORT | Clinical Summary ---
Author Author Admin, RAFFI Organization [facility] Address Unknown Phone Allergies, Adverse Reactions, Alerts [...] Simon Castillo MD ABDOMINAL TENDERNESS ICD-789.60 Inactive Siomn Castillo MD CHEST WALL PAIN, HX OF [...] 1 po qod x 5 doses LEVOFLOXACIN 77894581785 Active Simon Castillo MD Active CETIRIZINE HCL 10 MG TABS 1 po qd as needed for allergies CETIRIZINE HCL 81687083907 No Longer Active Simon Castillo MD Active FISH OIL 1000 MG CPDR 1 pill by mouth twice daily for cholesterol OMEGA -3 FATTY ACIDS 11936647071 Active Simon Castillo MD Active BILBERRY CAPS 1 tab daily BILBERRY (VACCINIUM MYRTILLUS) CAPS 36767045671 Active Simon Castillo MD Active PREDNISONE 5 MG TAB Take one po qod PREDNISONE 57667367585 Active Simon Castillo MD Active ATENOLOL 50 MG TABS Take one by mouth daily ATENOLOL 89246536134 No Longer Active Simon Castillo MD Active GLYBURIDE 5 MG TAB Take one by mouth daily GLYBURIDE 48498824720 Active Jami Dickey Active FLONASE 50 MCG/ACT SUSP 2 puffs in each nostril daily FLUTICASONE PROPIONATE 40037912029 No Longer Active Simon Castillo MD Active GLYBURIDE 5 MG TAB Take one by mouth daily GLYBURIDE 84672695886 No Longer Active Simon Castillo MD Active SYMBICORT 80-4.5 MCG/ACT AERO 2 puffs twice a day BUDESONIDE-FORMOTEROL FUMARATE 43599893311 No Longer Active Simon Castillo MD Active PREDNISONE 20 MG TAB 2 tabs daily for 4 days, 1 tab daily for 4 days, 1/2 tab daily for 4 days PREDNISONE 06048689353 No Longer Active Simon Castillo MD Active AMOXICILLIN 500 MG CAPS 2 po BID x 10 days AMOXICILLIN 88900265117 No Longer Active Simon Castillo MD Active METFORMIN HCL 1000 MG TABS 1 by mount twice a day METFORMIN HCL 99870344758 Active Simon Castillo MD Active LUTEIN-ZEAXANTHIN 6-1 MG TABS Take 2 by mouth daily LUTEIN-ZEAXANTHIN 05424707906 Active Simon Castillo MD Active IBUPROFEN 800 MG TABS Take 1 tab every 6 hrs prn IBUPROFEN 07545243042 Active Simon Castillo MD Active LISINOPRIL-HYDROCHLOROTHIAZIDE 20-12.5 MG TABS 1 tab by mouth daily LISINOPRIL-HYDROCHLOROTHIAZIDE 51034741339 Active Simon Castillo MD Active GLYBURIDE 2.5 MG TABS Take one by mouth daily GLYBURIDE 85046539055 No Longer Active Simon Castillo MD Active LANCETS MISC 2 qd LANCETS 34767910574 Active Pamela Conde Active Yippy CONTOUR TEST STRP Use with testing twice daily GLUCOSE BLOOD 65929218044 Active Pamela Conde Active ACACIA ASPIRIN 325 MG TABS Take one by mouth daily ASPIRIN 42694765475 Active Pamela Conde Active GLYBURIDE 2.5 MG TABS Take one by mouth daily GLYBURIDE 2.5 MG TABS 221349 GLYBURIDE Inactive PREDNISONE 20 MG TAB 2 tabs daily for 4 days, 1 tab daily for 4 days, 1/2 tab daily for 4 days PREDNISONE 20 MG TAB 677697 PREDNISONE Inactive SYMBICORT 80-4.5 MCG/ACT AERO 2 puffs twice a day SYMBICORT 80-4.5 MCG/ACT AERO BUDESONIDE-FORMOTEROL FUMARATE Inactive FLONASE 50 MCG/ACT SUSP 2 puffs in each nostril daily FLONASE 50 MCG/ACT SUSP 095527 FLUTICASONE PROPIONATE Inactive ATENOLOL 50 MG TABS Take one by mouth daily ATENOLOL 50 MG TABS 747196 ATENOLOL Inactive CETIRIZINE HCL 10 MG TABS 1 po qd as needed for allergies CETIRIZINE HCL 10 MG TABS 9878396 CETIRIZINE HCL Inactive AMOXICILLIN 500 MG CAPS 2 po BID x 10 days AMOXICILLIN 500 MG CAPS 100162 AMOXICILLIN Inactive GLYBURIDE 5 MG TAB Take one by mouth daily GLYBURIDE 5 MG TAB 662743 GLYBURIDE Inactive Immunizations Vaccine Administration Date Value [...] Panel - Chemistry sodium, serum 137 mmol/L 524-724 0828/06/26 potassium, serum 5.7 mmol/L 3.5-5.2 chloride, serum 104 mmol/L 98-107 carbon dioxide, venous blood 21.2 mmol/L 21.0-32.0 blood glucose 129 mg/dL 65-110 calcium, serum 9.0 mg/dL 8.5-10.1 urea nitrogen, blood 67 mg/dL 7-18 creatinine, serum 3.30 mg/dL 0.60-1.30 Lab Report: CBC W/DIFF, Comp. Metabolic Panel - Chemistry sodium, serum 137 mmol/L 310-724 4898/06/18 potassium, serum 5.3 mmol/L 3.5-5.2 chloride, serum [...] (AUTO) - Chemistry sodium, serum 141 mmol/L 892-969 7834/07/29 potassium, serum 5.7 mmol/L 3.5-5.2 chloride, serum [...] 7.2 % 4.3-6.0 sodium, serum 137 mmol/L 744-120 7530/01/23 potassium, serum 5.2 mmol/L 3.5-5.2 chloride, serum [...] mg/dL Encounters Code Encounter Date Provider Facility CPT-75199 Level 4 Est. Patient 08:59:29 CDT Simon Castillo MD [facility] CPT-24234 Level 4 Est. 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 CPT-15918 Level 4 Est. Patient 11:50:30 CDT Simon Castillo MD [facility] CPT-35275 Level 4 Est. Patient 09:54:46 CDT Simon Castillo MD [facility] CPT-21157 Level 3 Est. Patient 11:10:14 CDT Simon Castillo MD [facility] CPT-06502 Level 4 Est. Patient 09:44:02 CDT Simon Castillo MD [facility] CPT-83027 Level 3 Est. Patient 09:27:48 CDT Simon Castillo MD [facility] CPT-85181 Level 3 Est. 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 CPT-11016 Level 3 Est. Patient 09:51:35 CDT Simon Castillo MD [facility] Procedures Code Procedure Name Date Entry Date Standard Description CPT-74563 EKG Trac and Interp 09:21:58 CDT CPT-69462 Chest 2V Frontal and Lat 09:21:58 CDT CPT-Cryo Cryotherapy 10:54:51 [employer]OOK[employer]BI[employer]ERK CPT-86181 Administration 2+ single or combination vaccines inc oral 10:42:19 CDT CPT-61774 Administration single or combination vaccine inc oral 10 :42:19 CDT CPT-63391 Pneumovax 10:42:19 CDT CPT-05639 Influenza High Dose age 65+ 10:42:19 CDT CPT-35890 Administration single or combination vaccine inc oral 13 :18:54 CDT CPT-87264 Influenza High Dose age 65+ 13:18:54 CDT CPT-99077 Venipuncture Draw Fee 11:53:16 CDT CPT-63457 LS spine comp w obliq 11:03:13 CDT CPT-Cryo Cryotherapy 08:27:16 [employer]OOKMOBI[employer] CLERK CPT-54374 Administration single or combination vaccine inc oral 10 :56:34 CDT CPT-99146 Influenza High Dose age 65+ 10:56:34 CDT
--- OUTSIDE RECORDS SUMMARY | 2018-03-31 19:54 | XMS REPORT | Clinical Summary ---
Author Author Admin, RAFFI Organization [facility] Address Unknown Phone Allergies, Adverse Reactions, [...] qd as needed for allergies CETIRIZINE HCL 42147694036 No Longer Active Simon Castillo MD Active FISH OIL 1000 MG CPDR 1 pill by mouth twice daily for cholesterol OMEGA -3 FATTY ACIDS 62754396290 Active Simon Castillo MD Active BILBERRY CAPS 1 tab daily BILBERRY (VACCINIUM MYRTILLUS) CAPS 72160842817 Active Simon Castillo MD Active PREDNISONE 5 MG TAB Take one po qod PREDNISONE 47624400498 Active Simon Castillo MD Active ATENOLOL 50 MG TABS Take one by mouth daily ATENOLOL 95950090512 No Longer Active Simon Castillo MD Active GLYBURIDE 5 MG TAB Take one by mouth daily GLYBURIDE 88547298691 Active Jami Carthage Active FLONASE 50 MCG/ACT SUSP 2 puffs in each nostril daily FLUTICASONE PROPIONATE 28414825892 No Longer Active Simon Castillo MD Active GLYBURIDE 5 MG TAB Take one by mouth daily GLYBURIDE 62057536174 No Longer Active Simon Castillo MD Active SYMBICORT 80-4.5 MCG/ACT AERO 2 puffs twice a day BUDESONIDE-FORMOTEROL FUMARATE 75639081261 No Longer Active Simon Castillo MD Active PREDNISONE 20 MG TAB 2 tabs daily for 4 days, 1 tab daily for 4 days, 1/2 tab daily for 4 days PREDNISONE 36817397183 No Longer Active Simon Castillo MD Active AMOXICILLIN 500 MG CAPS 2 po BID x 10 days AMOXICILLIN 05138559737 No Longer Active Simon Castillo MD Active METFORMIN HCL 1000 MG TABS 1 by mounth twice a day METFORMIN HCL 75772525720 Active Simon Castillo MD Active LUTEIN-ZEAXANTHIN 6-1 MG TABS Take 2 by mouth daily LUTEIN-ZEAXANTHIN 67383322932 Active Simon Castillo MD Active IBUPROFEN 800 MG TABS Take 1 tab every 6 hrs prn IBUPROFEN 16467414226 Active Simon Castillo MD Active LISINOPRIL-HYDROCHLOROTHIAZIDE 20-12.5 MG TABS 1 tab by mouth daily LISINOPRIL-HYDROCHLOROTHIAZIDE 73904110954 Active Simon Castillo MD Active GLYBURIDE 2.5 MG TABS Take one by mouth daily GLYBURIDE 24793110788 No Longer Active Simon Castillo MD Active LANCETS MISC 2 qd LANCETS 92439297805 Active Pamela Conde Active ACACIA CONTOUR TEST STRP Use with testing twice daily GLUCOSE BLOOD 90903612205 Active Pamela Conde Active ACACIA ASPIRIN 325 MG TABS Take one by mouth daily ASPIRIN 02471087157 Active Pamela Conde Active GLYBURIDE 2.5 MG TABS Take one by mouth daily GLYBURIDE 2.5 MG TABS 035812 GLYBURIDE Inactive PREDNISONE 20 MG TAB 2 tabs daily for 4 days, 1 tab daily for 4 days, 1/2 tab daily for 4 days PREDNISONE 20 MG TAB 186208 PREDNISONE Inactive SYMBICORT 80-4.5 MCG/ACT AERO 2 puffs twice a day SYMBICORT 80-4.5 MCG/ACT AERO BUDESONIDE-FORMOTEROL FUMARATE Inactive FLONASE 50 MCG/ACT SUSP 2 puffs in each nostril daily FLONASE 50 MCG/ACT SUSP 625207 FLUTICASONE PROPIONATE Inactive ATENOLOL 50 MG TABS Take one by mouth daily ATENOLOL 50 MG TABS 724977 ATENOLOL Inactive CETIRIZINE HCL 10 MG TABS 1 po qd as needed for allergies CETIRIZINE HCL 10 MG TABS 7201397 CETIRIZINE HCL Inactive AMOXICILLIN 500 MG CAPS 2 po BID x 10 days AMOXICILLIN 500 MG CAPS 517504 AMOXICILLIN Inactive GLYBURIDE 5 MG TAB Take one by mouth daily GLYBURIDE 5 MG TAB 398375 GLYBURIDE Inactive Immunizations Vaccine Administration Date Value [...] Panel, MICROALBUMIN, HGBA1C, UADIP (AUTO) - Chemistry potassium, serum 5.7 mmol/L 3.5-5.2 chloride, serum [...] RBC, urine, dipstick Negative Negative sodium, serum 141 mmol/L 136-145 Lab Report: CBC, Comp. Metabolic Panel, MICROALBUMIN, HGBA1C, UADIP (AUTO) - Hematology platelet count 205 10^3/MM^3 10*3/mm3 188-423 3471/07/29 red blood cell distribution width 14.6 % 11.6-14.8 mean corpuscular hemoglobin concentration, RBC 31.8 G/DL % 31.8- 35.4 mean corpuscular hemoglobin, RBC 29.3 pg 27.0-31.2 mean corpuscular volume, RBC 92 fL 80-97 hematocrit, blood 43.0 % 41.0-53.0 hemoglobin, blood 13.7 g/dL 13.5-17.5 erythrocyte (RBC) count 4.67 10^6/MM^3 10*6/mm3 4.69-6.13 leukocyte count, blood 11.5 10^3/MM^3 10*3/mm3 4.6-10.2 Lab Report: CBC, Comp. Metabolic Panel, MICROALBUMIN, HGBA1C, UADIP (AUTO) - Lab microalbumin, urine 30 0-19 Lab Report: CBC, Comp. Metabolic Panel, MICROALBUMIN, HGBA1C, UADIP (AUTO) - Urinalysis glucose, urine, semiquantitative Negative Negative ketones, urine, by test strip Negative Negative bilirubin, urine Negative Negative urine color Yellow Colorless;Lightyellow;Straw;Yellow appearance, urine Clear Clear specific gravity, urine 1.020 1.000-1.030 pH, urine, semiquantitative 5.5 5.0-8.5 urobilinogen, urine, semiquantitative (dipstick) 0.2 Normal leukocyte esterase, urine, by dipstick Negative Negative nitrite, urine, semiquantitative Negative Negative Lab Report: HGBA1C - Chemistry hemoglobin A1C, blood, as % of total hemoglobin 7.8 % 4.3-6.0 Lab Report: HGBA1C, CBC W/DIFF, Comp. Metabolic Panel, Prostatic Specifi ... - Chemistry hemoglobin A1C, blood, as % of total hemoglobin 7.2 % 4.3-6.0 sodium, serum 137 mmol/L 354-890 3699/01/23 potassium, serum 5.2 mmol/L 3.5-5.2 chloride, serum [...] mg/dL Encounters Code Encounter Date Provider Facility CPT-83086 Level 4 Est. Patient 08:59:29 CDT Simon Castillo MD [facility] CPT-30343 Level 4 Est. 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 Patient 11:50:30 CDT Simon Castillo MD [facility] CPT-66964 Level 4 Est. Patient 09:54:46 CDT Simon Castillo MD [facility] CPT-03546 Level 3 Est. Patient 11:10:14 CDT Simon Castillo MD [facility] CPT-05840 Level 4 Est. Patient 09:44:02 CDT Simon Castillo MD [facility] CPT-25995 Level 3 Est. Patient 09:27:48 CDT Simon Castillo MD [facility] CPT-83444 Level 3 Est. Patient 09:58:06 [employer]END[employer]IV[employer] Simon Castillo MD [facility] CPT-92287 Level 3 Est. Patient 09:51:35 CDT Simon Castillo MD [facility] Procedures Code Procedure Name Date Entry Date Standard Description CPT-Cryo Cryotherapy 10:54:51 [employer]END[employer]IV[employer] CPT-02163 Administration 2+ single or combination vaccines inc oral 10:42:19 CDT CPT-40826 Administration single or combination vaccine inc oral 10 :42:19 CDT CPT-93439 Pneumovax 10:42:19 CDT CPT-18031 Influenza High Dose age 65+ 10:42:19 CDT CPT-21122 Administration single or combination vaccine inc oral 13 :18:54 CDT CPT-25402 Influenza High Dose age 65+ 13:18:54 CDT CPT-85441 Venipuncture Draw Fee 11:53:16 CDT CPT-96038 LS spine comp w obliq 11:03:13 CDT CPT-Cryo Cryotherapy 08:27:16 [employer] CPT-62908 Administration single or combination vaccine inc oral 10 :56:34 CDT CPT-35234 Influenza High Dose age 65+ 10:56:34 CDT
--- OUTSIDE RECORDS SUMMARY | 2018-03-31 19:55 | XMS REPORT | Clinical Summary ---
Author Author Admin, RAFFI Organization [facility] Address Unknown Phone Unavailable Allergies, Adverse [...] MG TABS 1 po q a.m. GLIMEPIRIDE 24288119987 Active Simon Castillo MD Active CARVEDILOL 6.25 MG TABS 1 po BID CARVEDILOL 79702697867 Active Simon Castillo MD Active LISINOPRIL-HYDROCHLOROTHIAZIDE 20-12.5 MG TABS 1/2 tab by mouth daily LISINOPRIL-HYDROCHLOROTHIAZIDE 49848632569 Active Simon Castillo MD Active PREDNISONE 5 MG TABS 1 po qod PREDNISONE 85271106582 Active Simon Castillo MD Active TRAMADOL HCL 50 MG TABS 1-2 tablets every 6 hours as needed for pain TRAMADOL HCL 33707053525 Active Simon Castillo MD Active PREDNISONE 5 MG TAB Take one po qod PREDNISONE 63540803861 No Longer Active Simon Castillo MD Active GLYBURIDE 5 MG TAB Take one by mouth daily GLYBURIDE 43587274508 No Longer Active Simon Castillo MD Active LEVAQUIN 750 MG TABS 1 po qod x 5 doses LEVOFLOXACIN 18263341416 No Longer Active Simon Castillo MD Active CETIRIZINE HCL 10 MG TABS 1 po qd as needed for allergies CETIRIZINE HCL 97971278486 No Longer Active Simon Castillo MD Active FISH OIL 1000 MG CPDR 1 pill by mouth twice daily for cholesterol OMEGA -3 FATTY ACIDS 07589728491 Active Simon Castillo MD Active BILBERRY CAPS 1 tab daily BILBERRY (VACCINIUM MYRTILLUS) CAPS 41714597227 Active Simon Castillo MD Active ATENOLOL 50 MG TABS Take one by mouth daily ATENOLOL 54687443359 No Longer Active Simon Castillo MD Active FLONASE 50 MCG/ACT SUSP 2 puffs in each nostril daily FLUTICASONE PROPIONATE 90032387704 No Longer Active iSmon Castillo MD Active GLYBURIDE 5 MG TAB Take one by mouth daily GLYBURIDE 17836360760 No Longer Active Simon Castillo MD Active SYMBICORT 80-4.5 MCG/ACT AERO 2 puffs twice a day BUDESONIDE-FORMOTEROL FUMARATE 52061876745 No Longer Active Simon Castillo MD Active PREDNISONE 20 MG TAB 2 tabs daily for 4 days, 1 tab daily for 4 days, 1/2 tab daily for 4 days PREDNISONE 66798162982 No Longer Active Simon Castillo MD Active AMOXICILLIN 500 MG CAPS 2 po BID x 10 days AMOXICILLIN 69073375064 No Longer Active Simon Castillo MD Active METFORMIN HCL 1000 MG TABS 1 by mounth twice a day METFORMIN HCL 70438783887 No Longer Active Simon Castillo MD Active LUTEIN-ZEAXANTHIN 6-1 MG TABS Take 2 by mouth daily LUTEIN-ZEAXANTHIN 20183411975 Active Simon Castillo MD Active IBUPROFEN 800 MG TABS Take 1 tab every 6 hrs prn IBUPROFEN 54381082321 No Longer Active Simon Castillo MD Active GLYBURIDE 2.5 MG TABS Take one by mouth daily GLYBURIDE 76442238119 No Longer Active Simon aCstillo MD Active LANCETS MISC 2 qd LANCETS 91135768098 Active Pamela Conde Active ACACIA CONTOUR TEST STRP Use with testing twice daily GLUCOSE BLOOD 50729992242 Active Pamela Conde Active ACACIA ASPIRIN 325 MG TABS Take one by mouth daily ASPIRIN 27431977604 Active Pamela Conde Active GLYBURIDE 2.5 MG TABS Take one by mouth daily GLYBURIDE 2.5 MG TABS 173464 GLYBURIDE Inactive PREDNISONE 20 MG TAB 2 tabs daily for 4 days, 1 tab daily for 4 days, 1/2 tab daily for 4 days PREDNISONE 20 MG TAB 458432 PREDNISONE Inactive SYMBICORT 80-4.5 MCG/ACT AERO 2 puffs twice a day SYMBICORT 80-4.5 MCG/ACT AERO BUDESONIDE-FORMOTEROL FUMARATE Inactive FLONASE 50 MCG/ACT SUSP 2 puffs in each nostril daily FLONASE 50 MCG/ACT SUSP 421049 FLUTICASONE PROPIONATE Inactive ATENOLOL 50 MG TABS Take one by mouth daily ATENOLOL 50 MG TABS 401808 ATENOLOL Inactive CETIRIZINE HCL 10 MG TABS 1 po qd as needed for allergies CETIRIZINE HCL 10 MG TABS 7423269 CETIRIZINE HCL Inactive LEVAQUIN 750 MG TABS 1 po qod x 5 doses LEVAQUIN 750 MG TABS 153676 LEVOFLOXACIN Inactive GLYBURIDE 5 MG TAB Take one by mouth daily GLYBURIDE 5 MG TAB 067177 GLYBURIDE Inactive PREDNISONE 5 MG TAB Take one po qod PREDNISONE 5 MG TAB 950669 PREDNISONE Inactive AMOXICILLIN 500 MG CAPS 2 po BID x 10 days AMOXICILLIN 500 MG CAPS 906056 AMOXICILLIN Inactive GLYBURIDE 5 MG TAB Take one by mouth daily GLYBURIDE 5 MG TAB 561632 GLYBURIDE Inactive Immunizations Vaccine Administration Date Value [...] Panel - Chemistry sodium, serum 137 mmol/L 423-267 1805/06/26 potassium, serum 5.7 mmol/L 3.5-5.2 chloride, serum 104 mmol/L 98-107 carbon dioxide, venous blood 21.2 mmol/L 21.0-32.0 blood glucose 129 mg/dL 65-110 calcium, serum 9.0 mg/dL 8.5-10.1 urea nitrogen, blood 67 mg/dL 7-18 creatinine, serum 3.30 mg/dL 0.60-1.30 sodium, serum 140 mmol/L 247-625 8260/07/10 potassium, serum 5.3 mmol/L 3.5-5.2 chloride, serum 105 mmol/L 98-107 carbon dioxide, venous blood 25.5 mmol/L 21.0-32.0 blood glucose 119 mg/dL 65-110 calcium, serum 8.9 mg/dL 8.5-10.1 urea nitrogen, blood 44 mg/dL 7-18 creatinine, serum 2.50 mg/dL 0.60-1.30 Lab Report: CBC W/DIFF, Comp. Metabolic Panel - Chemistry sodium, serum 137 mmol/L 999-812 4005/06/18 potassium, serum 5.3 mmol/L 3.5-5.2 chloride, serum [...] Panel - Chemistry sodium, serum 137 mmol/L 913-110 8622/10/14 potassium, serum 5.6 mmol/L 3.5-5.2 chloride, serum 103 mmol/L 98-107 carbon dioxide, venous blood 24.9 mmol/L 21.0-32.0 blood glucose 200 mg/dL 65-110 urea nitrogen, blood 43 mg/dL 7-18 creatinine, serum 2.60 mg/dL 0.60-1.30 calcium, serum 9.1 mg/dL 8.5-10.1 sodium, serum 139 mmol/L 230-506 8894/11/13 potassium, serum 5.8 mmol/L 3.5-5.2 chloride, serum 105 mmol/L 98-107 carbon dioxide, venous blood 22.2 mmol/L 21.0-32.0 blood glucose 156 mg/dL 65-110 urea nitrogen, blood 49 mg/dL 7-18 creatinine, serum 2.30 mg/dL 0.60-1.30 calcium, serum 9.2 mg/dL 8.5-10.1 sodium, serum 140 mmol/L 914-437 1740/12/12 potassium, serum 5.5 mmol/L 3.5-5.2 chloride, serum [...] % 11.6-14.8 platelet count 217 10^3/MM^3 10*3/mm3 001-298 8212/10/14 leukocyte count, blood 9.2 10^3/MM^3 10*3/mm3 4.6-10.2 erythrocyte (RBC) count 4.67 10^6/MM^3 10*6/mm3 4.69-6.13 hemoglobin, blood 13.9 g/dL 13.5-17.5 hematocrit, blood 42.4 % 41.0-53.0 mean corpuscular volume, RBC 91 fL 80-97 mean corpuscular hemoglobin, RBC 29.7 pg 27.0-31.2 mean corpuscular hemoglobin concentration, RBC 32.8 G/DL % 31.8- 35.4 red blood cell distribution width 14.7 % 11.6-14.8 platelet count 214 10^3/MM^3 10*3/mm3 191-726 7500/11/13 leukocyte count, blood 9.7 10^3/MM^3 10*3/mm3 4.6-10.2 [...] 6.9 % 4.3-6.0 sodium, serum 137 mmol/L 091-722 3317/08/21 potassium, serum 5.3 mmol/L 3.5-5.2 chloride, serum [...] 7.2 % 4.3-6.0 sodium, serum 137 mmol/L 262-327 6117/01/23 potassium, serum 5.2 mmol/L 3.5-5.2 chloride, serum [...] Panel - Chemistry sodium, serum 139 mmol/L 710-680 7635/10/21 potassium, serum 4.7 mmol/L 3.5-5.2 chloride, serum 104 mmol/L 98-107 carbon dioxide, venous blood 26.1 mmol/L 21.0-32.0 blood glucose 148 mg/dL 65-110 urea nitrogen, blood 38 mg/dL 7-18 creatinine, serum 2.60 mg/dL 0.60-1.30 calcium, serum 8.6 mg/dL 8.5-10.1 sodium, serum 140 mmol/L 413-152 8504/11/17 potassium, serum 5.0 mmol/L 3.5-5.2 chloride, serum [...] mg/dL Encounters Code Encounter Date Provider Facility CPT-50237 Level 4 Est. Patient 10:10:09 [employer] Simon Castillo MD [facility] CPT-01545 Level 4 Est. Patient 11:48:19 CDT Simon Castillo MD [facility] CPT-46325 Level 4 Est. Patient 08:59:29 CDT Simon Castillo MD [facility] CPT-07499 Level 4 Est. Patient 10:52:51 [employer] Simon Castillo MD [facility] CPT-56404 Level 4 Est. Patient 11:50:30 CDT Simon Castillo MD [facility] CPT-34521 Level 4 Est. Patient 09:54:46 CDT Simon Castillo MD [facility] CPT-98826 Level 3 Est. Patient 11:10:14 CDT Simon Castillo MD [facility] CPT-24490 Level 4 Est. Patient 09:44:02 CDT iSmon Castillo MD [facility] CPT-41259 Level 3 Est. Patient 09:27:48 CDT Simon Castillo MD [facility] CPT-58663 Level 3 Est. Patient 09:58:06 [employer] Simon Castillo MD [facility] CPT-64083 Level 3 Est. Patient 09:51:35 CDT Simon Castillo MD [facility] Procedures Code Procedure Name Date Entry Date Standard Description CPT-81710 Venipuncture Draw Fee 08:07:29 [employer] CPT-70493 Venipuncture Draw Fee 09:02:51 [employer] CPT-75894 Venipuncture Draw Fee 12:45:08 [employer] CPT-05019 Venipuncture Draw Fee 09:25:31 CDT CPT-G0008 Administration of Influenza Virus Vaccine 14:41:29 CDT CPT-34812 Fluzone High-Dose Intramuscular Suspension 14:41:29 CDT CPT-Cryo Cryotherapy 11:48:20 CDT CPT-58218 EKG Trac and Interp 09:21:58 CDT CPT-10025 Chest 2V Frontal and Lat 09:21:58 CDT CPT-Cryo Cryotherapy 10:54:51 [employer] CPT-13948 Administration 2+ single or combination vaccines inc oral 10:42:19 CDT CPT-94191 Administration single or combination vaccine inc oral 10 :42:19 CDT CPT-20025 Pneumovax 10:42:19 CDT CPT-07908 Influenza High Dose age 65+ 10:42:19 CDT CPT-94358 Administration single or combination vaccine inc oral 13 :18:54 CDT CPT-49403 Influenza High Dose age 65+ 13:18:54 CDT CPT-61478 Venipuncture Draw Fee 11:53:16 CDT CPT-56618 LS spine comp w obliq 11:03:13 CDT CPT-Cryo Cryotherapy 08:27:16 [employer] CPT-58276 Administration single or combination vaccine inc oral 10 :56:34 CDT CPT-41812 Influenza High Dose age 65+ 10:56:34 CDT
--- OUTSIDE RECORDS SUMMARY | 2018-03-31 19:56 | XMS REPORT | Clinical Summary ---
Author Author Admin, RAFFI Organization [facility] Address Unknown Phone Unavailable Allergies, Adverse [...] hours as needed for pain TRAMADOL HCL 83695270468 Active Simon Castillo MD Active PREDNISONE 5 MG TAB Take one po qod PREDNISONE 51588738885 No Longer Active Simon Castillo MD Active GLYBURIDE 5 MG TAB Take one by mouth daily GLYBURIDE 44553230138 No Longer Active Simon Castillo MD Active LEVAQUIN 750 MG TABS 1 po qod x 5 doses LEVOFLOXACIN 20684185555 No Longer Active Simon Castillo MD Active CETIRIZINE HCL 10 MG TABS 1 po qd as needed for allergies CETIRIZINE HCL 41935109437 No Longer Active Simon Castillo MD Active FISH OIL 1000 MG CPDR 1 pill by mouth twice daily for cholesterol OMEGA -3 FATTY ACIDS 41887231111 Active Simon Castillo MD Active BILBERRY CAPS 1 tab daily BILBERRY (VACCINIUM MYRTILLUS) CAPS 22010684429 Active Simon Castillo MD Active ATENOLOL 50 MG TABS Take one by mouth daily ATENOLOL 26052680623 No Longer Active Simon Castillo MD Active FLONASE 50 MCG/ACT SUSP 2 puffs in each nostril daily FLUTICASONE PROPIONATE 06896185089 No Longer Active Simon Castillo MD Active GLYBURIDE 5 MG TAB Take one by mouth daily GLYBURIDE 39524636717 No Longer Active Simon Castillo MD Active SYMBICORT 80-4.5 MCG/ACT AERO 2 puffs twice a day BUDESONIDE-FORMOTEROL FUMARATE 55410626918 No Longer Active Simon Castillo MD Active PREDNISONE 20 MG TAB 2 tabs daily for 4 days, 1 tab daily for 4 days, 1/2 tab daily for 4 days PREDNISONE 83257992309 No Longer Active Simon Castillo MD Active AMOXICILLIN 500 MG CAPS 2 po BID x 10 days AMOXICILLIN 20270389357 No Longer Active Simon Castillo MD Active METFORMIN HCL 1000 MG TABS 1 by mounth twice a day METFORMIN HCL 98809030220 Active Simon Castillo MD Active LUTEIN-ZEAXANTHIN 6-1 MG TABS Take 2 by mouth daily LUTEIN-ZEAXANTHIN 56102167027 Active Simon Castillo MD Active IBUPROFEN 800 MG TABS Take 1 tab every 6 hrs prn IBUPROFEN 08366223650 No Longer Active Simon Castillo MD Active LISINOPRIL-HYDROCHLOROTHIAZIDE 20-12.5 MG TABS 1 tab by mouth daily LISINOPRIL-HYDROCHLOROTHIAZIDE 24062463099 Active Simon Castillo MD Active GLYBURIDE 2.5 MG TABS Take one by mouth daily GLYBURIDE 34605236496 No Longer Active Simon Castillo MD Active LANCETS MISC 2 qd LANCETS 29401621188 Active Pamela Conde Active ACACIA CONTOUR TEST STRP Use with testing twice daily GLUCOSE BLOOD 82495612299 Active Pamela Conde Active ACACIA ASPIRIN 325 MG TABS Take one by mouth daily ASPIRIN 95867345978 Active Pamela Conde Active GLYBURIDE 2.5 MG TABS Take one by mouth daily GLYBURIDE 2.5 MG TABS 190628 GLYBURIDE Inactive PREDNISONE 20 MG TAB 2 tabs daily for 4 days, 1 tab daily for 4 days, 1/2 tab daily for 4 days PREDNISONE 20 MG TAB 806702 PREDNISONE Inactive SYMBICORT 80-4.5 MCG/ACT AERO 2 puffs twice a day SYMBICORT 80-4.5 MCG/ACT AERO BUDESONIDE-FORMOTEROL FUMARATE Inactive FLONASE 50 MCG/ACT SUSP 2 puffs in each nostril daily FLONASE 50 MCG/ACT SUSP 170940 FLUTICASONE PROPIONATE Inactive ATENOLOL 50 MG TABS Take one by mouth daily ATENOLOL 50 MG TABS 677957 ATENOLOL Inactive CETIRIZINE HCL 10 MG TABS 1 po qd as needed for allergies CETIRIZINE HCL 10 MG TABS 3425516 CETIRIZINE HCL Inactive LEVAQUIN 750 MG TABS 1 po qod x 5 doses LEVAQUIN 750 MG TABS 068858 LEVOFLOXACIN Inactive GLYBURIDE 5 MG TAB Take one by mouth daily GLYBURIDE 5 MG TAB 549581 GLYBURIDE Inactive PREDNISONE 5 MG TAB Take one po qod PREDNISONE 5 MG TAB 383993 PREDNISONE Inactive AMOXICILLIN 500 MG CAPS 2 po BID x 10 days AMOXICILLIN 500 MG CAPS 423070 AMOXICILLIN Inactive GLYBURIDE 5 MG TAB Take one by mouth daily GLYBURIDE 5 MG TAB 657418 GLYBURIDE Inactive Immunizations Vaccine Administration Date Value [...] Panel - Chemistry sodium, serum 137 mmol/L 718-132 0115/06/26 potassium, serum 5.7 mmol/L 3.5-5.2 chloride, serum 104 mmol/L 98-107 carbon dioxide, venous blood 21.2 mmol/L 21.0-32.0 blood glucose 129 mg/dL 65-110 calcium, serum 9.0 mg/dL 8.5-10.1 urea nitrogen, blood 67 mg/dL 7-18 creatinine, serum 3.30 mg/dL 0.60-1.30 sodium, serum 140 mmol/L 986-593 7010/07/10 potassium, serum 5.3 mmol/L 3.5-5.2 chloride, serum 105 mmol/L 98-107 carbon dioxide, venous blood 25.5 mmol/L 21.0-32.0 blood glucose 119 mg/dL 65-110 calcium, serum 8.9 mg/dL 8.5-10.1 urea nitrogen, blood 44 mg/dL 7-18 creatinine, serum 2.50 mg/dL 0.60-1.30 Lab Report: CBC W/DIFF, Comp. Metabolic Panel - Chemistry sodium, serum 137 mmol/L 273-502 9958/06/18 potassium, serum 5.3 mmol/L 3.5-5.2 chloride, serum [...] 7.2 % 4.3-6.0 sodium, serum 137 mmol/L 978-930 2666/01/23 potassium, serum 5.2 mmol/L 3.5-5.2 chloride, serum [...] mg/dL Encounters Code Encounter Date Provider Facility CPT-19279 Level 4 Est. Patient 11:48:19 CDT Simon Castillo MD [facility] CPT-24778 Level 4 Est. Patient 08:59:29 CDT Simon Castillo MD [facility] CPT-79835 Level 4 Est. Patient 10:52:51 GLOVE [employer] Simon Castillo MD [facility] CPT-68013 Level 4 Est. Patient 11:50:30 CDT Simon Castillo MD [facility] CPT-98550 Level 4 Est. Patient 09:54:46 CDT Simon Castillo MD [facility] CPT-73734 Level 3 Est. Patient 11:10:14 CDT Simon Castillo MD [facility] CPT-60418 Level 4 Est. Patient 09:44:02 CDT Simon Castillo MD [facility] CPT-05213 Level 3 Est. Patient 09:27:48 CDT Simon Castillo MD [facility] CPT-44492 Level 3 Est. Patient 09:58:06 [employer] Simon Castillo MD [facility] CPT-56146 Level 3 Est. Patient 09:51:35 CDT Simon Castillo MD [facility] Procedures Code Procedure Name Date Entry Date Standard Description CPT-Cryo Cryotherapy 11:48:20 CDT CPT-71087 EKG Trac and Interp 09:21:58 CDT CPT-32356 Chest 2V Frontal and Lat 09:21:58 CDT CPT-Cryo Cryotherapy 10:54:51 [employer]OVE [employer] CPT-53825 Administration 2+ single or combination vaccines inc oral 10:42:19 CDT CPT-54227 Administration single or combination vaccine inc oral 10 :42:19 CDT CPT-39858 Pneumovax 10:42:19 CDT CPT-13946 Influenza High Dose age 65+ 10:42:19 CDT CPT-46150 Administration single or combination vaccine inc oral 13 :18:54 CDT CPT-59170 Influenza High Dose age 65+ 13:18:54 CDT CPT-65031 Venipuncture Draw Fee 11:53:16 CDT CPT-74429 LS spine comp w obliq 11:03:13 CDT CPT-Cryo Cryotherapy 08:27:16 GLOVE [employer] CPT-11968 Administration single or combination vaccine inc oral 10 :56:34 CDT CPT-02095 Influenza High Dose age 65+ 10:56:34 CDT
[2018-03-31 19:57] VITALS: BP 125/64
--- OUTSIDE RECORDS SUMMARY | 2018-03-31 19:57 | XMS REPORT | Clinical Summary ---
Author Author Admin, RAFFI Organization [facility] Address Unknown Phone Allergies, Adverse Reactions, [...] qd as needed for allergies CETIRIZINE HCL 34574627500 Active Simon Castillo MD Active FISH OIL 1000 MG CPDR 1 pill by mouth twice daily for cholesterol OMEGA -3 FATTY ACIDS 69212084803 Active Simon Castillo MD Active BILBERRY CAPS 1 tab daily BILBERRY (VACCINIUM MYRTILLUS) CAPS 55121217185 Active Simon Castillo MD Active PREDNISONE 5 MG TAB Take one po qod PREDNISONE 03883261648 Active Simon Castillo MD Active ATENOLOL 50 MG TABS Take one by mouth daily ATENOLOL 26109231482 No Longer Active Simon Castillo MD Active FLONASE 50 MCG/ACT SUSP 2 puffs in each nostril daily FLUTICASONE PROPIONATE 62330786798 No Longer Active Simon Castillo MD Active GLYBURIDE 5 MG TAB Take one by mouth daily GLYBURIDE 08165444944 No Longer Active Simon Castillo MD Active SYMBICORT 80-4.5 MCG/ACT AERO 2 puffs twice a day BUDESONIDE- FORMOTEROL FUMARATE 98959549663 Active Simon Castillo MD Active PREDNISONE 20 MG TAB 2 tabs daily for 4 days, 1 tab daily for 4 days, 1/2 tab daily for 4 days PREDNISONE 75011736532 Active Simon Castillo MD Active AMOXICILLIN 500 MG CAPS 2 po BID x 10 days AMOXICILLIN 79391347059 No Longer Active Simon Castillo MD Active METFORMIN HCL 1000 MG TABS 1 by mount twice a day METFORMIN HCL 57960195212 Active Simon Castillo MD Active LUTEIN-ZEAXANTHIN 6-1 MG TABS Take 2 by mouth daily LUTEIN-ZEAXANTHIN 24169863040 Active Simon Castillo MD Active IBUPROFEN 800 MG TABS Take 1 tab every 6 hrs prn IBUPROFEN 98350596627 Active Simon Castillo MD Active LISINOPRIL-HYDROCHLOROTHIAZIDE 20-12.5 MG TABS 1 tab by mouth daily LISINOPRIL-HYDROCHLOROTHIAZIDE 72798747679 Active Simon Castillo MD Active GLYBURIDE 2.5 MG TABS Take one by mouth daily GLYBURIDE 78133419322 No Longer Active Simon Castillo MD Active LANCETS MISC 2 qd LANCETS 29962086581 Active Pamela Conde Active ACACIA CONTOUR TEST STRP Use with testing twice daily GLUCOSE BLOOD 10650957315 Active Pamela Conde Active ACACIA ASPIRIN 325 MG TABS Take one by mouth daily ASPIRIN 75886360652 Active Pamela Conde Active GLYBURIDE 2.5 MG TABS Take one by mouth daily GLYBURIDE 2.5 MG TABS 006984 GLYBURIDE Inactive FLONASE 50 MCG/ACT SUSP 2 puffs in each nostril daily FLONASE 50 MCG/ACT SUSP 516947 FLUTICASONE PROPIONATE Inactive ATENOLOL 50 MG TABS Take one by mouth daily ATENOLOL 50 MG TABS 779512 ATENOLOL Inactive AMOXICILLIN 500 MG CAPS 2 po BID x 10 days AMOXICILLIN 500 MG CAPS 174763 AMOXICILLIN Inactive GLYBURIDE 5 MG TAB Take one by mouth daily GLYBURIDE 5 MG TAB 350316 GLYBURIDE Inactive Immunizations Vaccine Administration Date Value [...] (AUTO) - Chemistry sodium, serum 141 mmol/L 627-040 3923/07/29 potassium, serum 5.7 mmol/L 3.5-5.2 chloride, serum [...] 7.2 % 4.3-6.0 sodium, serum 137 mmol/L 805-547 2068/01/23 potassium, serum 5.2 mmol/L 3.5-5.2 chloride, serum [...] mg/dL Encounters Code Encounter Date Provider Facility CPT-79341 Level 4 Est. Patient 10:52:51 [employer] Simon Castillo MD [facility] CPT-96886 Level 4 Est. Patient 11:50:30 CDT Simon Castillo MD [facility] CPT-64982 Level 4 Est. Patient 09:54:46 CDT Simon Castillo MD [facility] CPT-05136 Level 3 Est. Patient 11:10:14 CDT Simon Castillo MD [facility] CPT-40223 Level 4 Est. Patient 09:44:02 CDT Simon Castillo MD [facility] CPT-91308 Level 3 Est. Patient 09:27:48 CDT Simon Castillo MD [facility] CPT-50342 Level 3 Est. Patient 09:58:06 [employer] Simon Castillo MD [facility] CPT-19136 Level 3 Est. Patient 09:51:35 CDT Simon Castillo MD [facility] Procedures Code Procedure Name Date Entry Date Standard Description CPT-Cryo Cryotherapy 10:54:51 [employer] CPT-52941 Administration 2+ single or combination vaccines inc oral 10:42:19 CDT CPT-92602 Administration single or combination vaccine inc oral 10 :42:19 CDT CPT-82254 Pneumovax 10:42:19 CDT CPT-74817 Influenza High Dose age 65+ 10:42:19 CDT CPT-07695 Administration single or combination vaccine inc oral 13 :18:54 CDT CPT-65584 Influenza High Dose age 65+ 13:18:54 CDT CPT-29839 Venipuncture Draw Fee 11:53:16 CDT CPT-29021 LS spine comp w obliq 11:03:13 CDT CPT-Cryo Cryotherapy 08:27:16 [employer] CPT-34832 Administration single or combination vaccine inc oral 10 :56:34 CDT CPT-27949 Influenza High Dose age 65+ 10:56:34 CDT
--- OUTSIDE RECORDS SUMMARY | 2018-03-31 19:57 | XMS REPORT | Continuity of Care Document ---
Demographics x Preferred Language Unknown Marital Status Unknown Mormon Affiliation Unknown Race Unknown Ethnic Group Unknown Author Author [facility] Organization [facility] Address Unknown Phone Unavailable Allergies Active Description Code Type Severity Reaction Onset Reported/Identified Relationship to Patient Clinical Status Yes No known allergies Drug N/A N/A Yes No Known Medication Allergies Drug N/A N/A Medications There is no data. 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 06/25/2016 W Z79.52 senior care ( current) use of systemic steroids 06/25/2016 W G56.01 Carpal tunnel syndrome, right upper limb 06/25/2016 W 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 06/26/2016 W G56.01 Carpal tunnel syndrome, right upper limb 06/26/2016 W 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 07/04/2017 Simon Irene MD L57.0 Actinic keratosis 09/29/2017 Simon Irene MD L08.89 abrasion, face, infected 09/29/2017 Simon Irene MD L98.9 Lesion of skin of face 09/29/2017 Simon Irene MD R55 Syncope and collapse 09/29/2017 Simon Irene MD T14.8xxA Other injury of unspecified body region, initial encounter 12/29/2017 Simon Irene MD J20.9 Bronchitis, acute with mild bronchospasm 02/23/2018 Simon Irene MD L02.93 Carbuncle 02/23/2018 Simon Irene MD R06.09 Dyspnea on exertion 02/23/2018 Simon Irene MD R07.89 Chest pain, atypical 02/23/2018 Simon Irene MD D64.9 Anemia 02/23/2018 Simon Irene MD I50.9 Heart failure Procedures Code Description [place] D0140 LIMIT ORAL EVAL PROBLM FOCUS 02/15/2014 D0220 INTRAORAL PERIAPICAL FIRST F 02/15/2014 D7140 EXTRACTION ERUPTED TOOTH/ EXR 02/15/2014 D7140 EXTRACTION ERUPTED TOOTH/ EXR 04/06/2014 16068 JOINT SURVEY SINGLE VIEW 11/07/2015 92467 OFFICE/OUTPATIENT VISIT NEW 11/07/2015 01948 X-RAY EXAM OF ELBOW 11/14/2015 10974 OFFICE/OUTPATIENT VISIT EST 02/20/2016 79483 FIBRIN DEGRADATION, QUANT 02/26/2016 50975 LUNG PERFUSION IMAGING 02/27/2016 A9540 TC 99M MAA UP TO 10 MC 02/27/2016 Results Test Result Range D DIMER - 02/26/16 00:00 DDIM 1240 NG/ML 0-400 Encounters ACCT No. Visit Date/Time Discharge Status Pt. Type Provider Facility Loc./Unit Complaint [id number] 02/27/2016 10:28:00 02/27/2016 10:28:00 DIS Outpatient LAURYN VILLANUEVA [facility] RAD [id number] 02/26/2016 09:52:00 02/26/2016 09:52:00 DIS Outpatient LAURYN VILLANUEVA [facility] [id number] 11/14/2015 13:28:00 11/14/2015 13:28:00 DIS Outpatient JR BRICEÑO [facility] RAD [id number] 08/21/2015 00:00:00 Document Registration [email or web address] 03/14/2018 11:27:10 ACT Document Registration [id number] 04/06/2014 09:21:00 04/06/2014 23:59:59 [facility] Outpatient MARILIA BERNAL DDS [id number] 02/15/2014 15:07:00 02/15/2014 23:59:59 CLS Outpatient MARILIA BERNAL DDS [id number] 01/19/2018 11:54:59 01/19/2018 23:59:59 CLS Outpatient Tiago Burroughs [id number] 01/05/2018 16:50:26 01/05/2018 23:59:59 CLS Outpatient Tiago Burroughs [id number] 09/26/2016 10:13:33 09/26/2016 23:59:59 CLS Outpatient Juan, V S [id number] 10/24/2014 14:30:41 10/24/2014 23:59:59 CLS Outpatient Juan, V S [id number] 10/10/2014 13:59:32 10/10/2014 23:59:59 CLS Outpatient Juan, V S [id number] 03/03/2018 03:31:57 03/03/2018 23:59:59 DIS Outpatient TRACEE CAMPOS [facility] [id number] 03/01/2018 09:54:36 03/01/2018 23:59:59 CLS Preadmit DILSIMON GARCIA [facility] MS ACUTE ONCRONIC RENAL FAILURE [id number] 02/28/2018 20:14:00 02/28/2018 23:59:59 DIS Outpatient TRACEE CAMPOS [facility] [id number] 02/23/2018 16:21:22 02/23/2018 23:59:59 CLS Preadmit SIMON IRENE [facility] RAD elevated bmp [id number] 02/23/2018 11:53:42 02/23/2018 23:59:59 DIS Outpatient SIMON IRENE [facility] LAB [id number] 09/29/2017 12:57:00 09/29/2017 23:59:59 DIS Outpatient LAURYN VILLANUEVA [facility] [id number] 04/08/2017 08:22:18 04/08/2017 23:59:59 DIS Outpatient SIMON IRENE [facility] RAD heart failure [id number] 11/18/2016 11:03:32 11/18/2016 23:59:59 CLS Preadmit [facility] PT Weakness S/P Pneumonia [id number] 02/28/2018 21:05:00 ACT SIMON ZHENG [facility] OBS ed visit [id number] 02/10/2017 02:02:24 Document Registration [id number] 01/27/2017 02:00:34 Document Registration [id number] 01/13/2017 02:01:35 Document Registration [id number] 11/06/2016 14:57:02 Document Registration [id number] 11/05/2016 03:08:00 ACT ZECHARIAH MEZA [facility] OBS sick [id number] 02/24/2018 10:56:01 ACT Unknown Anna ARTIS, Simon [id number] 02/20/2016 16:15:00 Document Registration [id number] 11/07/2015 13:30:00 Document Registration
[2018-03-31] MEDS ORDERED: inSUlin DETERMIR 1 UNIT/0.01 ML (LEVEMIR) CHARGE PER UNIT SQ SCH (21:00)
[2018-03-31] MEDS ORDERED: LORazepam 0.5 MG (ATIVAN) TABLET PO SCH (21:00)
[2018-03-31] MEDS: inSUlin ASPART (NovoLOG) 1 UNIT/0.01 ML (CHARGE PER UNIT) SC SCH (22:38)
[2018-03-31] MEDS: CATHETER FLUSH 10 ML SYR IV SCH (22:39)
[2018-03-31] MEDS ORDERED: predniSONE 10 MG TAB ONE (22:44)
--- OUTSIDE RECORDS SUMMARY | 2018-03-31 23:29 | XMS REPORT | Continuity of Care Document ---
Demographics x Preferred Language Unknown Marital Status Unknown Mandaen Affiliation Unknown Race Unknown Ethnic Group Unknown Author Author [facility] Organization [facility] Address Unknown Phone Unavailable Allergies Active Description [...] 02/15/2014 D7140 EXTRACTION ERUPTED TOOTH/ EXR 04/06/2014 59927 JOINT SURVEY SINGLE VIEW 11/07/2015 94547 OFFICE/OUTPATIENT VISIT NEW 11/07/2015 57632 X-RAY EXAM OF ELBOW 11/14/2015 04794 OFFICE/OUTPATIENT VISIT EST 02/20/2016 90733 FIBRIN DEGRADATION, QUANT 02/26/2016 40073 LUNG PERFUSION IMAGING 02/27/2016 A9540 TC 99M MAA UP TO 10 MC 02/27/2016 Results Test Result Range D DIMER - 02/26/16 00:00 DDIM 1240 NG/ML 0-400 Encounters ACCT No. Visit Date/Time Discharge Status Pt. Type Provider Facility Loc./Unit Complaint [id number] 02/27/2016 10:28:00 02/27/2016 10:28:00 DIS Outpatient LAURYN VILLANUEVA [facility] RAD [id number] 02/26/2016 09:52:00 02/26/2016 09:52:00 DIS Outpatient LAURYN VILLANUEVA [facility] [id number] 11/14/2015 13:28:00 11/14/2015 13:28:00 DIS Outpatient JR BRICEÑO [facility] RAD [id number] 08/21/2015 00:00:00 Document Registration [id number] 03/14/2018 11:27:10 ACT Document Registration [id number] 04/06/2014 09:21:00 04/06/2014 23:59:59 [facility] Outpatient MARILIA BERNAL DDS [id number] 02/15/2014 15:07:00 02/15/2014 23:59:59 CLS Outpatient MARILIA BERNAL DDS [id number] 01/19/2018 11:54:59 01/19/2018 23:59:59 CLS Outpatient Tiago Burroughs [id number] 01/05/2018 16:50:26 01/05/2018 23:59:59 CLS Outpatient Tiago Burroughs [id number] 09/26/2016 10:13:33 09/26/2016 23:59:59 CLS Outpatient Juan, V S [id number] 10/24/2014 14:30:41 10/24/2014 23:59:59 CLS Outpatient Juan, V S [id number] 10/10/2014 13:59:32 10/10/2014 23:59:59 CLS Outpatient Juan, V S [id number] 03/03/2018 03:31:57 03/03/2018 23:59:59 DIS Outpatient TRACEE CAMPOS [facility] [id number] 03/01/2018 09:54:36 03/01/2018 23:59:59 CLS Preadmit DILSIMON GARCIA [facility] MS ACUTE ONCRONIC RENAL FAILURE [id number] 02/28/2018 20:14:00 02/28/2018 23:59:59 DIS Outpatient TRACEE CAMPOS [facility] [id number] 02/23/2018 16:21:22 02/23/2018 23:59:59 CLS Preadmit SIMON IRENE [facility] RAD elevated bmp [id number] 02/23/2018 11:53:42 02/23/2018 23:59:59 DIS Outpatient SIMON IRENE [facility] LAB [id number] 09/29/2017 12:57:00 09/29/2017 23:59:59 DIS Outpatient LAURYN VILLANUEVA [facility] LAB [id number] 04/08/2017 08:22:18 04/08/2017 23:59:59 DIS Outpatient SIMON IRENE [facility] RAD heart failure [id number] 11/18/2016 11:03:32 11/18/2016 23:59:59 CLS Preadmit [facility] KIR[facility] PT Weakness S/P Pneumonia [id number] 02/28/2018 21:05:00 ACT SIMON ZHENG [facility]AN OBS ed visit [id number] 02/10/2017 02:02:24 Document Registration [id number] 01/27/2017 02:00:34 Document Registration [id number] 01/13/2017 02:01:35 Document Registration [id number] 11/06/2016 14:57:02 Document Registration [id number] 11/05/2016 03:08:00 ACT ZECHARIAH MEZA [facility] OBS sick [id number] 02/24/2018 10:56:01 ACT Unknown Anna ARTIS, Simon [id number] 02/20/2016 16:15:00 Document Registration [id number] 11/07/2015 13:30:00 Document Registration
[2018-04-01] MEDS: CATHETER FLUSH 10 ML SYR IV SCH ×2 (06:04→12:25)
[2018-04-01 06:27] LABS: BASOPHILS % (AUTO) 0 % (0-10); EOSINOPHILS # (AUTO) 0.1 10^3/uL (0.0-0.3); EOSINOPHILS % (AUTO) 1 % (0-10); HEMATOCRIT 30 % (40-54); HEMOGLOBIN 9.3 G/DL (13.3-17.7); LYMPHOCYTES # (AUTO) 1.7 X 10^3 (1.0-4.0); LYMPHOCYTES % (AUTO) 20 % (12-44); MEAN CORPUSCULAR HEMOGLOBIN 30 PG (25-34); MEAN CORPUSCULAR HGB CONC 31 G/DL (32-36); MEAN CORPUSCULAR VOLUME 98 FL (80-99); MEAN PLATELET VOLUME 9.1 FL (7.4-10.4); MONOCYTES # (AUTO) 0.8 X 10^3 (0.0-1.0); MONOCYTES % (AUTO) 9 % (0-12); NEUTROPHILS # (AUTO) 5.8 X 10^3 (1.8-7.8); NEUTROPHILS % (AUTO) 70 % (42-75); PLATELET COUNT 226 10^3/uL (130-400); RED BLOOD COUNT 3.07 10^6/uL (4.35-5.85); WHITE BLOOD COUNT 8.3 10^3/uL (4.3-11.0)
[2018-04-01 06:50] LABS: ALANINE AMINOTRANSFERASE 8 U/L (0-55); ALBUMIN 3.4 GM/DL (3.2-4.5); ALKALINE PHOSPHATASE 59 U/L (40-136); BILIRUBIN,TOTAL 0.6 MG/DL (0.1-1.0); BUN/CREATININE RATIO 9; CALCIUM 9.1 MG/DL (8.5-10.1); CARBON DIOXIDE 27 MMOL/L (21-32); CHLORIDE 102 MMOL/L (98-107); CHOLESTEROL 123 MG/DL (< 200); CREATININE SERUM 2.59 MG/DL (0.60-1.30); GFR ESTIMATED 24; GLUCOSE 93 MG/DL (70-105); HDL CHOLESTEROL 54 MG/DL (40-60); POTASSIUM 4.4 MMOL/L (3.6-5.0); SODIUM 137 MMOL/L (135-145); TOTAL PROTEIN 5.8 GM/DL (6.4-8.2); TRIGLYCERIDES 33 MG/DL (<150); VLDL CHOLESTEROL 7 MG/DL (5-40)
[2018-04-01] MEDS: inSUlin ASPART (NovoLOG) 1 UNIT/0.01 ML (CHARGE PER UNIT) SC SCH ×2 (07:07→11:56)
[2018-04-01] MEDS ORDERED: TAMS0.4C2 PO (08:33)
[2018-04-01] MEDS ORDERED: ONDA4TAB8 SL (08:33)
[2018-04-01] MEDS ORDERED: ERGO50006 PO (08:33)
[2018-04-01] MEDS ORDERED: CETI10TA20 PO ×2 (08:33)
[2018-04-01] MEDS ORDERED: HYDR25SU28 RC (08:33)
[2018-04-01] MEDS ORDERED: MELA3TAB PO (08:33)
[2018-04-01] MEDS ORDERED: PIOG30TA71 PO (08:33)
[2018-04-01] MEDS ORDERED: NA P133E2 RC (08:33)
[2018-04-01] MEDS ORDERED: DOCU-143 PO (08:33)
[2018-04-01] MEDS ORDERED: GLIM4TAB PO (08:33)
[2018-04-01] MEDS ORDERED: ACET325T38 PO (08:33)
[2018-04-01] MEDS ORDERED: BISA10SU6 RC (08:33)
[2018-04-01] MEDS ORDERED: MAGN400O7 PO (08:33)
[2018-04-01] MEDS ORDERED: PRED5TAB PO (08:33)
[2018-04-01] MEDS ORDERED: predniSONE 5 MG TAB PO SCH ×2 (09:45→21:00)
--- NOTE | 2018-04-01 14:03 | Short Stay Summary ---
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 Pt states he is currently living at [facility] and yesterday he had an episode of chest pain that woke him up at ~1500. Pt states that the chest pain was in his upper chest and radiated through to his back. Pt states that he was given a NTG by EMS that resolved the pain. Pt states that he had his normal dialysis in the morning before his episode of chest pain. Pt state he had a similar event previously a few years ago and was seen at [facility]. Pt admits SOB, chronic cough , and "trouble swallowing". Pt denies fever, N/V/D, LEACH, abd pain. Date of Admission Mar 31, 2018 at 18:21 Date of Discharge 04/01/18 1420 Time Seen by Provider: 06:28 Attending Physician Krista Epstein MD Admitting Physician Krzysztof Garcia MD Consult Allergies and Home Medications Allergies Coded Allergies: No Known Drug Allergies (Unverified , 03/31/18) Home Medications Acetaminophen 325 Mg Tablet, 650 MG PO Q4H PRN for PAIN-MILD, (Reported) TAKES 2 (325MG) TABLETS Apixaban 2.5 Mg Tablet, 2.5 MG PO Q12H, (Reported) Bisacodyl 10 Mg Supp.rect, 10 MG RC DAILY PRN for CONSTIPATION-4TH LINE, ( Reported) Bumetanide 1 Mg Tablet, 1 MG PO SuMoWeFr, (Reported) Cetirizine HCl 10 Mg Tablet, 10 MG PO DAILY, (Reported) Docusate Sodium 100 Mg Capsule, 100 MG PO DAILY, (Reported) Ergocalciferol (Vitamin D2) 50,000 Unit Capsule, 50,000 UNIT PO Tu, (Reported) Flecainide Acetate 50 Mg Tablet, 50 MG PO DAILY, (Reported) Glimepiride 4 Mg Tablet, 4 MG PO BID, (Reported) Hydrocortisone Acetate 25 Mg Supp.rect, 25 MG RC Q4H PRN for HEMORRHOIDS, ( Reported) Insulin Determir 1,000 Units/10 Ml Soln, 4 UNITS SQ BID, (Reported) Magnesium Hydroxide 400 Mg/5 Ml Oral.susp, 30 ML PO DAILY PRN for CONSTIPATION- 7TH LINE, (Reported) Melatonin 3 Mg Tablet, 6 MG PO HS, (Reported) Na Phos,M-B/Na Phos,Di-Ba 133 Ml Enema, RC DAILY PRN for IN NO RESULTS FROM SUPP IN 4HR, (Reported) Ondansetron 4 Mg Tab.rapdis, 4 MG SL Q6H PRN for NAUSEA/VOMITING-1ST LINE, ( Reported) Pioglitazone HCl 30 Mg Tablet, 30 MG PO DAILY, (Reported) Prednisone 5 Mg Tablet, 5 MG PO BID, (Reported) Tamsulosin HCl 0.4 Mg Cap.er.24h, 0.4 MG PO DAILY, (Reported) Patient Home Medication List Home Medication List Reviewed: Yes Past Kriyjrz-Gtxodi-Qttcnw Hx Patient Social History Alcohol Use: Occasionally Uses Number of Drinks Today: 0 Alcohol Beverage of Choice: Beer Recreational Drug Use: No Smoking Status: Former Smoker Former Smoker, Quit: Apr 01, 1978 Type Used: Cigars, Cigarettes Physical Abuse Screen: No Sexual Abuse: No Recent Foreign Travel: No Contact w/other who traveled: No Recent Hopitalizations: Yes Recent Infectious Disease Expo: No Seasonal Allergies Seasonal Allergies: No Surgeries Yes (hernia, port in right upper chest) Respiratory No Cardiovascular Yes Hypertension Neurological No Genitourinary No Benign Prostatic Hyperpl, Dialysis Gastrointestinal Yes Abdominal Hernia, Gastroesophageal Reflux Musculoskeletal Yes Arthritis, Rheumatoid Arthritis Endocrine History of Endocrine Disorders: Yes Endocrine Disorders: Diabetes, Non-Insulin dep Are Your Blood Sugars Over 250: Yes HEENT History of HEENT Disorders: Yes HEENT Disorders: Macular Degeneration Cancer No Psychosocial History of Psychiatric Problem: No Integumentary History of Skin or Integumenta: Yes Skin/Integumentary Disorders: Psoriasis Blood Transfusions History of Blood Disorders: No Adverse Reaction to a Blood Tr: No Constitutional: No fever Respiratory: see HPI Cardiovascular: see HPI, chest pain, edema Gastrointestinal: No abdominal pain Psychiatric/Neurological: No Symptoms Reported Physical Exam Vital Signs Vital Signs - First Documented 03/31/18 15:55 Temp 98.2 Pulse 113 Resp 21 B/P (MAP) 144/67 (92) Pulse Ox 94 O2 Delivery Room Air Capillary Refill : Less Than 3 Seconds Height, Weight, BMI Height: 5'7.00" Weight: 210lbs.0.0oz.95.903494tc; 32.9 BMI Method:Stated General Appearance: No Apparent Distress, Other (port in right upper chest) Eyes: Bilateral Eye EOMI Respiratory: Lungs Clear, No Respiratory Distress Cardiovascular: Regular Rate, Rhythm, Normal Peripheral Pulses (2+ radial pulse bilaterally) Gastrointestinal: Non Tender, Soft Extremity: Pedal Edema (1+ pitting edema bilateral LE) Neurologic/Psychiatric: Alert Clinical Quality Measures AMI/AHF: ASA po Prior to arrival: No DVT/VTE Risk/Contraindication: Risk Factor Score Per Nursin RFS Level Per Nursing on Admit: 2=Moderate Short Stay Diagnosis Discharge Diagnosis-Short Stay Final Discharge Diagnosis: Chest pain Anemia Conclusion Labs Laboratory Tests 03/31/18 16:10: Sodium Level 135, Potassium Level 3.8, Chloride Level 97L, Carbon Dioxide Level 23, Anion Gap 15H, Blood Urea Nitrogen 14, Creatinine 2.14H, Estimat Glomerular Filtration Rate 30, BUN/Creatinine Ratio 7, Glucose Level 427*H, Calcium Level 8.9, Magnesium Level 1.8, Total Bilirubin 0.5, Aspartate Amino Transf (AST/SGOT ) 15, Alanine Aminotransferase (ALT/SGPT) 8, Alkaline Phosphatase 73, Myoglobin 139.8H, Troponin I < 0.30, Total Protein 6.5, Albumin 3.8 03/31/18 16:44: White Blood Count 8.6, Red Blood Count 3.18L, Hemoglobin 9.7L, Hematocrit 31L, Mean Corpuscular Volume 99, Mean Corpuscular Hemoglobin 31, Mean Corpuscular Hemoglobin Concent 31L, Red Cell Distribution Width 14.8H, Platelet Count 197, Mean Platelet Volume 9.5, Neutrophils (%) (Auto) 78H, Lymphocytes (%) (Auto) 10L , Monocytes (%) (Auto) 9, Eosinophils (%) (Auto) 3, Basophils (%) (Auto) 0, Neutrophils # (Auto) 6.7, Lymphocytes # (Auto) 0.9L, Monocytes # (Auto) 0.8, Eosinophils # (Auto) 0.2, Basophils # (Auto) 0.0, B-Type Natriuretic Peptide 112.0H 03/31/18 17:01: Prothrombin Time 13.8, INR Comment 1.1, Activated Partial Thromboplast Time 24 03/31/18 21:16: Glucometer 110 04/01/18 06:16: White Blood Count 8.3, Red Blood Count 3.07L, Hemoglobin 9.3L, Hematocrit 30L, Mean Corpuscular Volume 98, Mean Corpuscular Hemoglobin 30, Mean Corpuscular Hemoglobin Concent 31L, Red Cell Distribution Width 15.0H, Platelet Count 226, Mean Platelet Volume 9.1, Neutrophils (%) (Auto) 70, Lymphocytes (%) (Auto) 20, Monocytes (%) (Auto) 9, Eosinophils (%) (Auto) 1, Basophils (%) (Auto) 0, Neutrophils # (Auto) 5.8, Lymphocytes # (Auto) 1.7, Monocytes # (Auto) 0.8, Eosinophils # (Auto) 0.1, Basophils # (Auto) 0.0, Sodium Level 137, Potassium Level 4.4, Chloride Level 102, Carbon Dioxide Level 27, Anion Gap 8, Blood Urea Nitrogen 24H, Creatinine 2.59#H, Estimat Glomerular Filtration Rate 24, BUN/ Creatinine Ratio 9, Glucose Level 93, Calcium Level 9.1, Total Bilirubin 0.6, Aspartate Amino Transf (AST/SGOT) 13, Alanine Aminotransferase (ALT/SGPT) 8, Alkaline Phosphatase 59, Troponin I < 0.30, Total Protein 5.8L, Albumin 3.4, Triglycerides Level 33, Cholesterol Level 123, LDL Cholesterol Direct 51, VLDL Cholesterol 7, HDL Cholesterol 54 04/01/18 11:48: Glucometer 222H Conclusion/Plan Chest pain - pt was seen by cardiology and declined any interventions. Pt had negative serial troponin, negative CXR and pt had no symptoms since admission Chronic kidney disease - per pending report, medical records requested from [facility] - most likely secondary to chronic kidney disease KRISTA EPSTEIN MD 04/01/18 1604: Allergies and Home Medications Allergies Coded Allergies: No Known Drug Allergies (Unverified , 03/31/18) Home Medications Acetaminophen 325 Mg Tablet, 650 MG PO Q4H PRN for PAIN-MILD, (Reported) TAKES 2 (325MG) TABLETS Apixaban 2.5 Mg Tablet, 2.5 MG PO Q12H, (Reported) Bisacodyl 10 Mg Supp.rect, 10 MG RC DAILY PRN for CONSTIPATION-4TH LINE, ( Reported) Bumetanide 1 Mg Tablet, 1 MG PO SuMoWeFr, (Reported) Cetirizine HCl 10 Mg Tablet, 10 MG PO DAILY, (Reported) Docusate Sodium 100 Mg Capsule, 100 MG PO DAILY, (Reported) Ergocalciferol (Vitamin D2) 50,000 Unit Capsule, 50,000 UNIT PO Tu, (Reported) Flecainide Acetate 50 Mg Tablet, 50 MG PO DAILY, (Reported) Glimepiride 4 Mg Tablet, 4 MG PO BID, (Reported) Hydrocortisone Acetate 25 Mg Supp.rect, 25 MG RC Q4H PRN for HEMORRHOIDS, ( Reported) Insulin Determir 1,000 Units/10 Ml Soln, 4 UNITS SQ BID, (Reported) Magnesium Hydroxide 400 Mg/5 Ml Oral.susp, 30 ML PO DAILY PRN for CONSTIPATION- 7TH LINE, (Reported) Melatonin 3 Mg Tablet, 6 MG PO HS, (Reported) Na Phos,M-B/Na Phos,Di-Ba 133 Ml Enema, RC DAILY PRN for IN NO RESULTS FROM SUPP IN 4HR, (Reported) Ondansetron 4 Mg Tab.rapdis, 4 MG SL Q6H PRN for NAUSEA/VOMITING-1ST LINE, ( Reported) Pioglitazone HCl 30 Mg Tablet, 30 MG PO DAILY, (Reported) Prednisone 5 Mg Tablet, 5 MG PO BID, (Reported) Tamsulosin HCl 0.4 Mg Cap.er.24h, 0.4 MG PO DAILY, (Reported) Supervisory-Addendum Brief Supervisory Addendum Patient seen and examined by me and assessment and plan directed by me, agree with documentation by SP Santana unless otherwise noted here. Patient admitted with chest pain and is poor historian- had extended recent stay at [facility] after a similar episode of chest pain and does not recall having any heart interventions or problems, but is on flecainide and anticoagulation. [facility] after his [facility]. His troponins were negative and he had no chest pain inpatient, he did not want any further interventions and was [facility]. Patient has apparently central line in right upper chest that is in place from [facility] and he is anxious that it not be removed, discussed we had no intention of removal at this time. IGNACIA SANTANA MEDICAL STUDENT Apr 01, 2018 14:03 KRISTA EPSTEIN MD Apr 01, 2018 16:04
--- NOTE | 2018-04-01 14:28 | Discharge Instructions ---
Discharge [facility] Discharge Medications Continued Medications: Acetaminophen (Tylenol) 325 Mg Tablet 650 MG PO Q4H PRN for PAIN-MILD, TAB TAKES 2 (325MG) TABLETS Apixaban (Eliquis) 2.5 Mg Tablet 2.5 MG PO Q12H, TAB Bisacodyl (Bisacodyl) 10 Mg Supp.rect 10 MG RC DAILY PRN for CONSTIPATION-4TH LINE, SUPP.RECT Bumetanide (Bumetanide) 1 Mg Tablet 1 MG PO SuMoWeFr, TAB Cetirizine HCl (Zyrtec) 10 Mg Tablet 10 MG PO DAILY, TAB Docusate Sodium (Colace) 100 Mg Capsule 100 MG PO DAILY, CAP Ergocalciferol (Vitamin D2) (Vitamin D2) 50,000 Unit Capsule 04631 UNIT PO Tu, CAP Flecainide Acetate (Flecainide Acetate) 50 Mg Tablet 50 MG PO DAILY, TAB Glimepiride (Glimepiride) 4 Mg Tablet 4 MG PO BID, TAB Hydrocortisone Acetate (Anusol-Hc) 25 Mg Supp.rect 25 MG RC Q4H PRN for HEMORRHOIDS, SUPP.RECT Insulin Determir (Levemir) 1,000 Units/10 Ml Soln 4 UNITS SQ BID, EA Magnesium Hydroxide (Milk of Magnesia) 400 Mg/5 Ml Oral.susp 30 ML PO DAILY PRN for CONSTIPATION-7TH LINE, ML Melatonin (Melatonin) 3 Mg Tablet 6 MG PO HS, TAB Na Phos,M-B/Na Phos,Di-Ba (Enema) 133 Ml Enema RC DAILY PRN for IN NO RESULTS FROM SUPP IN 4HR, EA Ondansetron (Zofran Odt) 4 Mg Tab.rapdis 4 MG SL Q6H PRN for NAUSEA/VOMITING-1ST LINE, TAB Pioglitazone HCl (Pioglitazone HCl) 30 Mg Tablet 30 MG PO DAILY, TAB Prednisone (Prednisone) 5 Mg Tablet 5 MG PO BID, TAB Tamsulosin HCl (Tamsulosin HCl) 0.4 Mg Cap.er.24h 0.4 MG PO DAILY, CAP Discontinued Medications: Cetirizine HCl (Zyrtec) 10 Mg Tablet 10 MG PO DAILY PRN for DRAINAGE, TAB Patient Instructions Goal/Follow Up Appt: You will be seen at [facility]. Patient Instructions: Discuss with your primary provider the possibility of changing your diabetes medicines as your blood sugar was high and one of you medications (pioglitazone) can affect your heart function. Activity & Diet Discharge Diet: ADA Diet Activity as Tolerated: Yes Copy Copies To 1: ZECHARIAH ADAMS MD, BETHANY N MD Apr 01, 2018 14:28
--- NOTE | 2018-04-01 15:53 | Discharge Inst-Skilled Nursing ---
Discharge Inst-Skilled NF Patient Instructions Patient Problems: Chronic renal failure Debility due to prolonged hospitalization Goal: Improved mobility Consult/Follow Up/Orders Skilled NF Admit to: [facility] Certifications SNF I certify that SNF services are required to be given on an inpatient basis because of the above named patient's need for [place] [facility] care on a continuing basis for the conditions(s) for which he/she was receiving inpatient hospital services prior to his/her transfer to the SNF. [facility] Facility Order: Nursing Services, Laundry Operator Finishing-Evaluate & Treat, Physical Therapy-Evaluate & Treat, Speech Language-Evaluate & Treat Discharge Diet: ADA Diet Daily Activity as Tolerated: Yes Discharge Medications Continued Medications: Acetaminophen (Tylenol) 325 Mg Tablet 650 MG PO Q4H PRN for PAIN-MILD, TAB (This prescription has been renewed) TAKES 2 (325MG) TABLETS Apixaban (Eliquis) 2.5 Mg Tablet 2.5 MG PO Q12H, TAB Bisacodyl (Bisacodyl) 10 Mg Supp.rect 10 MG RC DAILY PRN for CONSTIPATION-4TH LINE, SUPP.RECT (This prescription has been renewed) Bumetanide (Bumetanide) 1 Mg Tablet 1 MG PO SuMoWeFr, TAB Cetirizine HCl (Zyrtec) 10 Mg Tablet 10 MG PO DAILY, TAB (This prescription has been renewed) Docusate Sodium (Colace) 100 Mg Capsule 100 MG PO DAILY, CAP (This prescription has been renewed) Ergocalciferol (Vitamin D2) (Vitamin D2) 50,000 Unit Capsule 55144 UNIT PO Tu, CAP Flecainide Acetate (Flecainide Acetate) 50 Mg Tablet 50 MG PO DAILY, TAB Glimepiride (Glimepiride) 4 Mg Tablet 4 MG PO BID, TAB (This prescription has been renewed) Hydrocortisone Acetate (Anusol-Hc) 25 Mg Supp.rect 25 MG RC Q4H PRN for HEMORRHOIDS, SUPP.RECT (This prescription has been renewed) Insulin Determir (Levemir) 1,000 Units/10 Ml Soln 4 UNITS SQ BID, EA Magnesium Hydroxide (Milk of Magnesia) 400 Mg/5 Ml Oral.susp 30 ML PO DAILY PRN for CONSTIPATION-7TH LINE, ML (This prescription has been renewed) Melatonin (Melatonin) 3 Mg Tablet 6 MG PO HS, TAB (This prescription has been renewed) Na Phogeraldo,M-B/Na Phos,Di-Ba (Enema) 133 Ml Enema RC DAILY PRN for IN NO RESULTS FROM SUPP IN 4HR, EA (This prescription has been renewed) Ondansetron (Zofran Odt) 4 Mg Tab.rapdis 4 MG SL Q6H PRN for NAUSEA/VOMITING-1ST LINE, TAB (This prescription has been renewed) Pioglitazone HCl (Pioglitazone HCl) 30 Mg Tablet 30 MG PO DAILY, TAB (This prescription has been renewed) Prednisone (Prednisone) 5 Mg Tablet 5 MG PO BID, TAB (This prescription has been renewed) Tamsulosin HCl (Tamsulosin HCl) 0.4 Mg Cap.er.24h 0.4 MG PO DAILY, CAP (This prescription has been renewed) Discontinued Medications: Cetirizine HCl (Zyrtec) 10 Mg Tablet 10 MG PO DAILY PRN for DRAINAGE, TAB Krista cMbride Apr 01, 2018 15:52 KRISTA MCBRIDE MD Apr 01, 2018 3:53 pm
[2018-04-01 16:23] VITALS: BP 125/64
--- NOTE | 2018-04-01 19:54 | Consultation-Cardiology ---
HPI-Cardiology Cardiology Consultation: Date of Consultation 04/01/18 Date of Admission Attending Physician Lizzeth Mcbride MD Admitting Physician Krzysztof Garcia MD Consulting Physician Abner CLARK MD HPI: Time Seen by Provider: 12:55 Chief Complaint: Chest pain This is a 87-year-old gentleman who has history of diabetes, end-stage renal disease who was on dialysis but recently has been taken off dialysis, hypertension, rheumatoid arthritis. His currently at [facility] and presented with chest pain. Chest pain is midsternal and radiates to the back. Chest pain resolved with nitroglycerin. Patient has some shortness of breath but denies any other cardiac symptoms. Chest pain intensity was moderate and lasted for less than 30 minutes. Review of Systems-Cardiology Review of Systems Constitutional: As described under HPI; No As described under HPI, No no symptoms reported, No chills, No fever, No lightheadedness Eyes: No As described under HPI, No no symptoms reported, No blindness, No blurred vision, No contact lenses, No drainage, No decreased acuity, No foreign body sensation, No pain, No vision change Ears/Nose/Throat: No As described under HPI, No no symptoms reported, No chronic hearing loss, No ear discharge, No ear pain, No nasal drainage, No ulcerations Respiratory: No no symptoms reported; As described under HPI; No As described under HPI, No cough, No orthopnea; shortness of breath; No SOB with excertion Cardiovascular: No no symptoms reported; As described under HPI; No As described under HPI; chest pain; No edema, No irregular heart rate, No lightheadedness, No palpitations Gastrointestinal: No no symptoms reported, No As described under HPI, No abdomen distended, No abdominal pain, No blood streaked bowels, No constipation , No diarrhea, No nausea, No vomiting, No stool coloration changes Genitourinary: No As described under HPI, No burning, No dysuria, No discharge , No frequency, No flank pain, No hematuria, No urgency Skin: No rash, No skin related problems, No ulcerations Psychiatric/Neurological: No anxiety, No depression, No seizure, No focal weakness, No syncope Hematologic: anemia; No bleeding abnormalities TLA-Awjtwc-Ytzpvi Hx Patient Social History Alcohol Use: Occasionally Uses Recreational Drug Use: No Smoking Status: Former Smoker Type Used: Cigars, Cigarettes Recent Foreign Travel: No Recent Infectious Disease Expo: No Hospitalization with Isolation: Denies Physical Abuse Screen: No Sexual Abuse: No Past Medical History PMH As described under Assessment. Allergies and Home Medications Allergies Coded Allergies: No Known Drug Allergies (Unverified , 03/31/18) Home Medications Acetaminophen 325 Mg Tablet, 650 MG PO Q4H PRN for PAIN-MILD, (Reported) TAKES 2 (325MG) TABLETS Apixaban 2.5 Mg Tablet, 2.5 MG PO Q12H, (Reported) Bisacodyl 10 Mg Supp.rect, 10 MG RC DAILY PRN for CONSTIPATION-4TH LINE, ( Reported) Bumetanide 1 Mg Tablet, 1 MG PO SuMoWeFr, (Reported) Cetirizine HCl 10 Mg Tablet, 10 MG PO DAILY, (Reported) Docusate Sodium 100 Mg Capsule, 100 MG PO DAILY, (Reported) Ergocalciferol (Vitamin D2) 50,000 Unit Capsule, 50,000 UNIT PO Tu, (Reported) Flecainide Acetate 50 Mg Tablet, 50 MG PO DAILY, (Reported) Glimepiride 4 Mg Tablet, 4 MG PO BID, (Reported) Hydrocortisone Acetate 25 Mg Supp.rect, 25 MG RC Q4H PRN for HEMORRHOIDS, ( Reported) Insulin Determir 1,000 Units/10 Ml Soln, 4 UNITS SQ BID, (Reported) Magnesium Hydroxide 400 Mg/5 Ml Oral.susp, 30 ML PO DAILY PRN for CONSTIPATION- 7TH LINE, (Reported) Melatonin 3 Mg Tablet, 6 MG PO HS, (Reported) Na Phos,M-B/Na Phos,Di-Ba 133 Ml Enema, RC DAILY PRN for IN NO RESULTS FROM SUPP IN 4HR, (Reported) Ondansetron 4 Mg Tab.rapdis, 4 MG SL Q6H PRN for NAUSEA/VOMITING-1ST LINE, ( Reported) Pioglitazone HCl 30 Mg Tablet, 30 MG PO DAILY, (Reported) Prednisone 5 Mg Tablet, 5 MG PO BID, (Reported) Tamsulosin HCl 0.4 Mg Cap.er.24h, 0.4 MG PO DAILY, (Reported) Patient Home Medication List Home Medication List Reviewed: Yes Physical Exam-Cardiology Physical Exam Vital Signs/I&O 04/01/18 04/01/18 13:00 16:23 Pulse 92 92 Resp 18 B/P (MAP) 125/64 Pulse Ox 96 O2 Delivery Room Air O2 Flow Rate 3.00 04/01/18 00:00 Intake Total 240 ml Balance 240 ml Capillary Refill : Less Than 3 Seconds Constitutional: appears stated age, AAO x 3; No apparent distress; well- developed, well-nourished HEENT: No PERRL, No normal ENT inspection, No TMs normal, No pharynx normal, No scleral icterus (R), No scleral icterus (L), No pale conjunctivae (R), No pale conjunctivae (L), No photophobia, No TM abnormal (R), No TM abnormal (L), No pharyngeal erythema, No tonsillar exudate, No other, No discharge, No EOMI, No hearing is well preserved, No hard of hearing, No oral hygience is good, No ulceration, No xanthelasmas are seen Neck: No non-tender, No full range of motion, No supple, No normal inspection, No carotid bruit, No limited range of motion, No lymphadenopathy (R), No lymphadenopathy (L), No tender lateral, No tender midline, No thyromegaly, No other, No carotid pulses are 2 + bilaterally, No with good upstrokes Respiratory: No accessory muscle use, No respiratory distress, No chest tender , No chest expansion is symmetric; chest is bilaterally symmetric; No lungs clear to percussion; lungs clear to auscultation; No crackles, No rhonchi, No rales, No stridor, No wheezing, No pleural rub, No other Cardiovascular: regular rate-rhythm, S1 and S2 Gastrointestinal: No tender, No soft, No round, No distended, No pulsatile mass , No organomegaly, No guarding, No rebound, No tenderness, No hernia, No mass, No audible bowel sounds, No abnormal bowel sounds, No abdominal bruits, No spleenomegaly, No other Rectal: deferred Extremities: No normal range of motion, No non-tender, No normal inspection, No pedal edema, No calf tenderness, No normal capillary refill, No pelvis stable , No calf tenderness, No inflammation, No pedal edema, No slow capillary refill , No swelling, No other, No abrasion, No clubbing, No cyanosis, No ecchymosis, No laceration, No no lower extremity edema bilateral, No significant edema, No tenderness, No wound Neurologic/Psychiatric: no motor/sensory deficits, alert, normal mood/affect, oriented x 3 Skin: No normal color, No warm/dry, No cyanosis, No cool, No diaphoresis, No damp, No ecchymosis, No jaundice, No mottled, No pallor, No rash, No tattoos/ piercings, No ulcerations, No rash on exposed areas, No ulcerations on exposed areas, No other Data Review Labs Laboratory Tests 04/01/18 06:16: White Blood Count 8.3, Red Blood Count 3.07L, Hemoglobin 9.3L, Hematocrit 30L, Mean Corpuscular Volume 98, Mean Corpuscular Hemoglobin 30, Mean Corpuscular Hemoglobin Concent 31L, Red Cell Distribution Width 15.0H, Platelet Count 226, Mean Platelet Volume 9.1, Neutrophils (%) (Auto) 70, Lymphocytes (%) (Auto) 20, Monocytes (%) (Auto) 9, Eosinophils (%) (Auto) 1, Basophils (%) (Auto) 0, Neutrophils # (Auto) 5.8, Lymphocytes # (Auto) 1.7, Monocytes # (Auto) 0.8, Eosinophils # (Auto) 0.1, Basophils # (Auto) 0.0, Sodium Level 137, Potassium Level 4.4, Chloride Level 102, Carbon Dioxide Level 27, Anion Gap 8, Blood Urea Nitrogen 24H, Creatinine 2.59#H, Estimat Glomerular Filtration Rate 24, BUN/ Creatinine Ratio 9, Glucose Level 93, Calcium Level 9.1, Total Bilirubin 0.6, Aspartate Amino Transf (AST/SGOT) 13, Alanine Aminotransferase (ALT/SGPT) 8, Alkaline Phosphatase 59, Troponin I < 0.30, Total Protein 5.8L, Albumin 3.4, Triglycerides Level 33, Cholesterol Level 123, LDL Cholesterol Direct 51, VLDL Cholesterol 7, HDL Cholesterol 54 04/01/18 11:48: Glucometer 222H ECG Impression ECG Initial ECG Rhythm: S.Tach, PVC Initial ECG Impression: Nonspecific Changes A/P-Cardiology Assessment/Admission Diagnosis Chest pain, End-stage renal disease, Elevated BNP, Anemia, Likely paroxysmal atrial fibrillation, Diabetes, Hypertension, RA Plan Prolonged Chest pain, serial troponin are negative. EKG shows no acute ST-T wave abnormalities. Considering high risk for obstructive CAD with risk factors including end-stage renal disease, diabetes and hypertension I recommended coronary angiography. However the patient flatly refused and clearly mentioned that he does not want any invasive or noninvasive procedures. I discussed with him that if the chest pain is due to obstructive CAD he could be at risk for recurrent ME and even , however the patient thinks that he does not have any cardiac problem and therefore does not want anything. Patient wants to be discharged and follow with primary care physician. End-stage renal disease, recently on dialysis. Defer to nephrology. Elevated BNP, likely due to diastolic dysfunction due to end-stage renal disease. No acute CHF. Anemia, likely due to end-stage renal disease. Likely paroxysmal atrial fibrillation, he is on flecainide and Eliquis. Sinus rhythm on EKG. Diabetes, deferred to primary service. Hypertension, normal blood pressure. RA Thank you for your consultation. Please call me if you have any questions. Mireille Clark MD, FACP, FACC, FSCAI, FHRS, CCDS Interventional Cardiology Cardiac Electrophysiology Vascular Medicine and Endovascular Interventions Clinical Quality Measures AMI/AHF: ASA po Prior to arrival: No DVT/VTE Risk/Contraindication: Risk Factor Score Per Nursin RFS Level Per Nursing on Admit: 2=Moderate Abner CLARK MD Apr 01, 2018 19:54
== END 2018-04-01 14:25 ==
LOC: EDUNIT# 15:50 → ER 15:51 → 4TH 18:21 → UNDOADMOB 18:21 → 4TH 21:30 → UNDODISOB 04-01 13:23
PROVIDERS: ADMIT Family Medicine; ATTEND Family Medicine
DX: R07.2 Precordial pain (principal); I12.0 Hypertensive chronic kidney disease with stage 5 chronic kidney disease or end stage renal disease; N18.6 End stage renal disease; E11.22 Type 2 diabetes mellitus with diabetic chronic kidney disease; D64.9 Anemia, unspecified; R94.8 Abnormal results of function studies of other organs and systems; M06.9 Rheumatoid arthritis, unspecified; Z87.891 Personal history of nicotine dependence; Z79.4 Long term (current) use of insulin; Z79.899 Other long term (current) drug therapy; Z99.2 Dependence on renal dialysis
CPT/HCPCS: 36415; 71045; 80053; 80061; 82962; 83735; 83874; 83880; 84484; 85025; 85610; 85730; 93005; 93041; 96372; G0378

== ENCOUNTER → 2018-04-10 | Outpatient (CLI) | payer MEDICARE ==
[~2018-04-10] MED LIST: ACET325T38 PO; APIX2.5T PO; BISA10SU6 RC; BUME1TAB4 PO; CETI10TA20 PO; DOCU-143 PO; ERGO50006 PO; FLEC50TA PO; GLIM4TAB PO; HYDR25SU28 RC; INSU100V5 SQ; MAGN400O7 PO; MELA3TAB PO; NA P133E2 RC; ONDA4TAB8 SL; PIOG30TA71 PO; PRED5TAB PO; TAMS0.4C2 PO
== END ==
LOC: CVS 10:55
PROVIDERS: ATTEND Internal Medicine
DX: N18.9 Chronic kidney disease, unspecified (principal)

== ENCOUNTER 2018-07-20 09:17 | Inpatient (IN) | payer MEDICARE ==
[2018-07-20] VITALS (11 sets, daily range): BP systolic 100–159; BP diastolic 55–90
[~2018-07-20] VITALS: Ht 170.2 cm; Wt 95.4 kg
[2018-07-20] MEDS ORDERED: NS IV 1000 ML 1,000 ML IV ONE (09:51)
--- OUTSIDE RECORDS SUMMARY | 2018-07-20 09:51 | XMS REPORT ---
Author Author [employer] [facility] Medical Staff Organization [facility] [employer] [facility] Address [address] [place], [place] [address] Phone [phone] Summary purpose TRANSITION OF CARE AUTO GENERATION [...] tests and/or laboratory data RESULTS Radiology Results [id number] LUNG PERFUSION SCAN PACs Image DATE OF EXAM: 2015 [id number] PERFUSION SCAN : RADIOLOGY REPORT DATE OF [...] DO WP/cdj02/27/2016 12:17:00 / 02/27/2016 12:37:55 cc:Daja Villanueva APRN This document has been electronically Signed by: On: DATE OF EXAM: 2015 [id number] PERFUSION SCAN : RADIOLOGY REPORT DATE OF [...] DO WP/cdj02/27/2016 12:17:00 / 02/27/2016 12:37:55 cc:Daja Villanueva APRN This document has been electronically Signed by: NIKHIL MCKAY DO On: [id number] Result Amended on 2016-02-27 at 14:33:52. Previous status was MA. History of procedures Procedure Code Code Type Description Date Performed Performing Physician 95430 CPT-4 LUNG PERFUSION IMAGING 02-27-2016 LAURYN VILLANUEVA A9540 CPT-4 TC 99M MAA UP TO 10 02-27-2016 LAURYN VILLANUEVA Functional status No functional or [...]
--- OUTSIDE RECORDS SUMMARY | 2018-07-20 09:52 | XMS REPORT ---
Author Author Tiago Burroughs [facility] Address [address] [place] [id number] Care Team Providers Care Fitting Room Maintenance Mechanic Name Role Phone Tiago Burroughs PCP Allergies and Adverse Reactions Name Reaction Notes NO KNOWN DRUG ALLERGIES Plan of Treatment Planned Activity Comments Planned Date Planned Time Plan/Goal EKG. 05/06/2018 12:00 AM CBC 05/11/2014 12:00 AM BMP [...] same meal each day for 30 days bumetanide 2 mg oral tablet take 1 tablet (2 mg) by oral route 2 times per day metoprolol tartrate 50 mg oral tablet take 1 tablet by oral route daily Eliquis 2.5 mg oral tablet take 1 tablet (2.5 mg) by oral route 2 times per day Levemir U-100 Insulin 100 unit/mL subcutaneous solution inject by subcutaneous route per prescriber's instructions. Insulin dosing requires individualization. Name Start Date Expiration Date SIG Comments [...] UTI (urinary tract infection) Active 10/10/2014 Urinary Frequency Active 10/10/2014 Slowing of Urinary Stream Active [...] HC BMI BSA BMI Percentile O2 Sat(%) 05/04/2018 10:50:00 AM 130 mmHg 68 mmHg 100 bpm 18 rpm 98.2 F 215.125 lbs 67 in 33.693 kg/m 2.1477 m 95 % 01/19/2018 11:00:00 AM 138 mmHg 68 mmHg [...] Reviewed 01/19/2018 12:00 AM URINALYSIS AUTO W/SCOPE Reviewed 05/04/2018 11:32 AM US URINE CAPACITY MEASURE Reviewed 05/04/2018 12:00 AM URINALYSIS AUTO W/SCOPE Reviewed 05/04/2018 12:00 AM COMPLETE CBC W/AUTO DIFF WBC Reviewed 05/04/2018 12:00 AM METABOLIC PANEL TOTAL CA Reviewed 05/18/2018 12:00 AM IRRIGATION OF BLADDER Reviewed 05/11/2014 12:00 AM ASSAY OF PSA [...] 01/19/2018 11:09 AM Residual Urine 107.0 mL 01/19/2018 11:38 AM COLOR YELLOW APPEARANCE CLEAR SPEC GRAV 1.010 pH 5.5 PROTEIN NEGATIVE GLUCOSE 250 KETONE NEGATIVE BILIRUBIN NEGATIVE BLOOD NEGATIVE NITRITE NEGATIVE LEUK SCREEN NEGATIVE WBC/HPF NEGATIVE RBC/HPF NEGATIVE CASTS/ LPF NEGATIVE /LPFCRYSTALS NEGATIVE MUCOUS THRDS NEGATIVE BACTERIA NEGATIVE EPITH CELLS FEW SQUAMOUS /HPFTRICHOMONAS NEGATIVE YEAST NEGATIVE CULT SET UP? NO 05/04/2018 11:32 AM Residual Urine 65.0 mL 05/04/2018 11:48 AM COLOR YELLOW APPEARANCE CLEAR SPEC GRAV <=1.005 pH 5.5 PROTEIN NEGATIVE GLUCOSE NEGATIVE KETONE NEGATIVE BILIRUBIN NEGATIVE BLOOD TRACE -INTACT NITRITE NEGATIVE LEUK SCREEN SMALL WBC/HPF 0-5 RBC/HPF RARE CASTS/LPF NEGATIVE CRYSTALS NEGATIVE MUCOUS THRDS FEW BACTERIA FEW EPITH CELLS NEGATIVE TRICHOMONAS NEGATIVE YEAST NEGATIVE CULT SET UP? NO 05/04/2018 1:40 PM WBC 7.7 RBC 3.59 HGB 10.9 HCT 34.9 MCV 97 MCH 30.4 MCHC 31.2 RDW SD 48 RDW CV 13.2 MPV 10.0 PLT 187 NRBC# 0.00 NRBC% 0.0 %NEUT 74.2 % LYMP 17.3 %MONO 7.0 %EOS 0.6 %BASO 0.1 #NEUT 5.72 #LYMP 1.33 #MONO 0.54 #EOS 0.05 #BASO 0.01 MANUAL DIFF NOT IND GLUCOSE 362 SODIUM 138 POTASSIUM 4.4 CHLORIDE 99 CO2 27 BUN 61 CREATININE 3.1 CALCIUM 9.4 AGE 87 GFR NonAA 19 GFR AA 23 eGFR 19 eGFR AA* 23 History Of Immunizations Not available. 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 2018 11:09AM Difficulty urinating May 04 2018 10:53AM Renal failure May 04 2018 10:53AM Bladder outlet obstruction May 04 2018 10:53AM Preop examination May 06 2018 10:49AM Urethral stricture May 18 2018 10:00AM Payers Insurance Name Company Name Plan Name Plan Number Policy Number Policy Group Number Start Date Medicare Part B Medicare Of [place] [id number] N/A BCBS [facility] [id number] N/A History of Encounters Visit Date Visit Type Provider 05/18/2018 Procedures Tiago Burroughs MD 05/12/2018 Surgery Tiago Burroughs MD 05/04/2018 Office visit Tiago Burroughs MD 01/19/2018 Procedures Tiago Burroughs MD 01/05/2018 Office visit Tiago Burroughs MD 09/26/2016 Office visit V Herman Martinez MD 03/07/2016 Office visit V Herman Martinez MD 11/28/2014 Office visit V Herman Martinez MD 10/24/2014 Office visit V Herman Martinez MD 10/10/2014 Office visit Akil Martinez MD
--- OUTSIDE RECORDS SUMMARY | 2018-07-20 09:52 | XMS REPORT ---
Author Author Tiago Burroughs [facility] Address [address] [place] [id number] Care Team Providers Care Occupational Physician Name Role Phone Tiago Burroughs PCP Allergies [...] Date Medicare Part B Medicare [place] [id number] N/A BCBS [facility] [id number] N/A History of Encounters Visit Date Visit [...]
--- OUTSIDE RECORDS SUMMARY | 2018-07-20 09:53 | XMS REPORT ---
Author Author Tiago Burroughs [facility] Address [address] [place] [phone] Care Team Providers Care Loading Unit Operator Powder Charging Name Role Phone Tiago Burroughs PCP Allergies [...] Reviewed 05/04/2018 12:00 AM URINALYSIS AUTO W/SCOPE Returned 05/04/2018 12:00 AM COMPLETE CBC W/AUTO DIFF WBC Returned 05/04/2018 12:00 AM METABOLIC PANEL TOTAL CA Returned 05/11/2014 12:00 AM ASSAY OF PSA [...] 05/04/2018 11:32 AM Residual Urine 65.0 mL History Of Immunizations Not available. History [...] 10:53AM Preop examination May 06 2018 10:49AM Payers Insurance Name Company Name Plan Name Plan Number Policy Number Policy Group Number Start Date Medicare Part B Medicare [place] [id number] N/A BCBS [facility] [id number] N/A History of Encounters Visit Date Visit Type Provider 05/04/2018 Office visit Tiago Burroughs MD 01/19/2018 Procedures Tiago Burroughs MD 01/05/2018 Office visit Tiago Burroughs MD 09/26/2016 Office visit Akil Martinez MD 03/07/2016 Office visit Akil Martinez MD 11/28/2014 Office visit Akil Martinez MD 10/24/2014 Office visit Akil Martinez MD 10/10/2014 Office visit Akil Martinez MD
--- OUTSIDE RECORDS SUMMARY | 2018-07-20 09:53 | XMS REPORT ---
Author Author Tiago Burroughs [facility] Address [address] [place] [phone] Care Team Providers Care Rf Design Engineer Name Role Phone Tiago Burroughs PCP Allergies [...] Date Medicare Part B Medicare [place] [id number] N/A BCBS [facility] [id number] N/A History of Encounters Visit Date Visit Type Provider 05/04/2018 Office visit Tiago Burroughs MD 01/19/2018 Procedures Tiago Burroughs MD 01/05/2018 Office visit Tiago Burroughs MD 09/26/2016 Office visit Akil Martinez MD 03/07/2016 Office visit Akil Martinez MD 11/28/2014 Office visit Akil Martinez MD 10/24/2014 Office visit Akil Martinez MD 10/10/2014 Office visit Akil Martinez MD
--- OUTSIDE RECORDS SUMMARY | 2018-07-20 09:53 | XMS REPORT ---
Author Author Tiago Burroughs [facility] Address [address] [place] [phone] Care Team Providers Care Weights And Measures Inspector Name Role Phone Tiago Burroughs PCP Allergies [...] Date Medicare Part B Medicare [place] [id number] N/A BCBS [facility] [id number] N/A History of Encounters Visit Date Visit [...]
--- OUTSIDE RECORDS SUMMARY | 2018-07-20 09:54 | XMS REPORT ---
Author Author Tiago Burroughs [facility] Address [address] [place] [phone] Care Team Providers Care Swahili Teacher Name Role Phone Tiago Burroughs PCP Allergies [...] Date Medicare Part B Medicare [place] [id number] N/A BCBS [facility] [id number] N/A History of Encounters Visit Date Visit Type Provider 05/04/2018 Office visit Tiago Burroughs MD 01/19/2018 Procedures Tiago Burroughs MD 01/05/2018 Office visit Tiago Burroughs MD 09/26/2016 Office visit Akil Martinez MD 03/07/2016 Office visit Akil Martinez MD 11/28/2014 Office visit Akil Martinez MD 10/24/2014 Office visit Akil Martinez MD 10/10/2014 Office visit Akil Martinez MD
--- OUTSIDE RECORDS SUMMARY | 2018-07-20 09:54 | XMS REPORT ---
Author Author Tiago Burroughs [facility] Address [address] [place] [phone] Care Team Providers Care Automotive Glass Mechanic Name Role Phone Tiago Burroughs PCP Allergies and Adverse Reactions Name Reaction Notes NO KNOWN DRUG ALLERGIES Plan of Treatment Planned Activity Comments Planned Date Planned Time Plan/Goal [facility] 05/04/2018 12:00 AM CBC 05/11/2014 12:00 AM BMP [...] AM COMPLETE CBC W/AUTO DIFF WBC Returned 05/11/2014 12:00 AM ASSAY OF PSA [...] Bladder outlet obstruction May 04 2018 10:53AM Payers Insurance Name Company Name Plan Name Plan Number Policy Number Policy Group Number Start Date Medicare Part B Medicare Of [place] [id number] N/A [facility] [id number] N/A History of Encounters Visit Date Visit Type Provider 05/04/2018 Office visit Tiago Burroughs MD 01/19/2018 Procedures Tiago Burroughs MD 01/05/2018 Office visit Tiago Burroughs MD 09/26/2016 Office visit Akil Martinez MD 03/07/2016 Office visit Akil Martinez MD 11/28/2014 Office visit Akil Martinez MD 10/24/2014 Office visit Akil Martinez MD 10/10/2014 Office visit Akil Martinez MD
--- OUTSIDE RECORDS SUMMARY | 2018-07-20 09:56 | XMS REPORT ---
Author Author IGNACIA TIMMONS Organization [facility] Address [address] [place] [address] Care Team Providers Care Assistant Director Of Residence Life Name Role Phone IGNACIA TIMMONS Unavailable PROBLEMS Type Condition ICD9-CM Code VFK73-QC Code Onset Dates Condition Status SNOMED Code Problem Dialysis patient Z99.2 Active 162055322 Problem 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 Active 784542305 Problem Rheumatoid arthritis, involving unspecified site, unspecified rheumatoid factor presence M06.9 Active 96920328 Problem Dental examination V72.2 Active 42152473 Problem Type 2 diabetes mellitus with hyperglycemia, without long-term current use of insulin E11.65 Active 29754373 Problem Essential hypertension I10 Active 36236959 Problem Gait disturbance R26.9 Active 79540235 Problem 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 Active 89982032 Problem End stage renal disease N18.6 Active 11922113 Problem Primary insomnia F51.01 Active 6616456 Problem Benign prostatic hyperplasia with lower urinary tract symptoms N40.1 Active [id number] ALLERGIES No Information ENCOUNTERS Encounter Location Date Diagnosis [facility] [address] [address] Jun, [facility] [address] [address] Jun, Type 2 diabetes mellitus with hyperglycemia, without long- term current use of insulin E11.65 [facility] [address] [address] 04 Jun, 2018 Dysuria R30.0 and Acute cystitis without hematuria N30.00 [facility] [address] [address] 02 Jun, 2018 Type 2 diabetes mellitus with hyperglycemia, without long- term current use of insulin E11.65 [facility] [address] [address] May, [facility] [address] [place] [address] May, Bacterial skin infection of upper extremity L08.9 [facility] [address] [address] May, Type 2 diabetes mellitus with hyperglycemia, without long- term current use of insulin E11.65 [facility] [address] [address] Apr, End stage renal disease N18.6 [place] [address] [place] [address] Apr, [facility] [id number] [place] [address]191[address] 3536 Apr, [facility] [id number] [place] [address]87[address] 7285 Apr, Type 2 diabetes mellitus with hyperglycemia, without long- term current use of insulin E11.65 [place] [address] [place] [address]54- 67[address] Apr, [facility] [address] [address] Apr, [place] [address] [place] [address] Apr, Via [facility] [address] [place] [id number] Apr, Type 2 diabetes mellitus with hyperglycemia, without long-term current use of insulin E11.65 ; End stage renal disease N18.6 ; Rheumatoid arthritis, involving unspecified site, unspecified rheumatoid factor presence M06.9 ; 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 ; 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 ; Gait disturbance R26.9 ; Localized edema R60.0 ; Primary insomnia F51.01 ; Essential hypertension I10 ; Frequency of micturition R35.0 and Benign prostatic hyperplasia with lower urinary tract symptoms N40.1 [facility] [address] [address] Apr, [facility] [address] [place] [address] 2565 Mar, [place] [id number] [place] [address]67[address] Mar, Via [facility] [address] [place] [id number] Mar, Type 2 diabetes mellitus with hyperglycemia, without long-term current use of insulin E11.65 ; End stage renal disease N18.6 and Shortness of breath R06.02 [place] [id number] [place] [address] 5715 Mar, 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 [place] [id number] [place] [address]47- 0830 Mar, [place] [address] [place] [address] 20839- 9491 Mar, [place] [address] [place] [address] 09852- 5252 Mar, [place] [address] [place] [address]59- 9630 Feb, [facility] [address] [place] [id number] Feb, Encounter for examination for admission to residential Z02.2 ; Type 2 diabetes mellitus with hyperglycemia, without long-term current use of insulin E11.65 ; 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 ; Osteopenia of multiple sites M85.89 ; End stage renal disease N18.6 ; Dialysis patient Z99.2 and Rheumatoid arthritis, involving unspecified site, unspecified rheumatoid factor presence M06.9 [facility] [address] [address] Feb, [facility] [address] [place] [address] May, Dental examination Z01.20 [facility] [address] [place] [address] May, [facility] [place] [address] [place] [address] May, Dental examination Z01.20 [facility] [place] [address] [place] [address] 06 May, 2016 [facility] [place] [address] [place] [address] Apr, Dental examination Z01.20 [facility] [address] [place] [address] Dec, Dental examination Z01.20 [facility] [address] [place] [address] Oct, Dental examination Z01.20 [facility] [address] [place] [address] Oct, Dental examination Z01.20 [facility] [place] [address] [place] [address] Sep, Dental examination Z01.20 [facility] [address] [place] [address] Aug, Dental examination Z01.20 [facility] [address] [place] [address] Jul, Dental examination Z01.20 [facility] [address] [place] [address] Jul, Dental examination Z01.20 [facility] [address] [place] [address] Jun, Dental examination Z01.20 [facility] [id number] [address] 14 Dec, 2014 [facility] [id number] [address] 13 Dec, 2014 [facility] [id number] [address] 16 Mar, 2014 [facility] [address] [address] Mar, [facility] [address] [facility] [id number] [address] Mar, [facility] [address] [facility] [id number] [address] Feb, [facility] [address] [facility] [id number] [address] January, [facility] [address] [facility] [id number] [address] January, IMMUNIZATIONS No Known Immunizations SOCIAL HISTORY Never Assessed REASON FOR VISIT request return call PLAN OF CARE VITAL SIGNS MEDICATIONS Unknown Medications RESULTS No Results PROCEDURES No Known procedures INSTRUCTIONS MEDICATIONS ADMINISTERED No Known Medications MEDICAL (GENERAL) HISTORY Type Description Date Medical History Mild High Blood Pressure Medical History Diabetes Type 2 Medical History Arthritis Surgical History umbilical hernia Hospitalization History Renal failure 02/2018 Hospitalization History Chest pain-[facility] 03/31/18
--- OUTSIDE RECORDS SUMMARY | 2018-07-20 09:56 | XMS REPORT ---
Author Author IGNACIA TIMMONS [facility] Address [address] [place] [address] Care Team Providers Care Student Services Advisor Name Role Phone IGNACIA TIMMONS Unavailable PROBLEMS Type Condition ICD9-CM Code XZA44-QY Code Onset Dates Condition Status SNOMED Code Problem Dialysis patient Z99.2 Active 488509657 Problem 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 Active 349608473 Problem Rheumatoid arthritis, involving unspecified site, unspecified rheumatoid factor presence M06.9 Active 48828941 Problem Dental examination V72.2 Active 73547869 Problem Type 2 diabetes mellitus with hyperglycemia, without long-term current use of insulin E11.65 Active 87076137 Problem Essential hypertension I10 Active 76077122 Problem Gait disturbance R26.9 Active 93863254 Problem 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 Active 12523298 Problem End stage renal disease N18.6 Active 70228800 Problem Primary insomnia F51.01 Active 4112625 Problem Benign prostatic hyperplasia with lower urinary tract symptoms N40.1 Active [id number] ALLERGIES No Information ENCOUNTERS Encounter Location Date Diagnosis [facility] [id number] [place] [address] Jun, Dysuria R30.0 and Acute cystitis without hematuria N30.00 [facility] [place] [id number] [place] [address] Jun, Type 2 diabetes mellitus with hyperglycemia, without long- term current use of insulin E11.65 [facility] [place] [id number] [place] [address] May, [facility] [id number] [place] [address] May, Bacterial skin infection of upper extremity L08.9 [facility] [place] [address] [place] [address] May, Type 2 diabetes mellitus with hyperglycemia, without long- term current use of insulin E11.65 [facility] [place] [address] [address] Apr, End stage renal disease N18.6 [facility] [place] [address] [address] Apr, [facility] [place] [id number] [place] [address]463- 1064 Apr, [facility] [place] [address] [place] [address]28- 4794 Apr, Type 2 diabetes mellitus with hyperglycemia, without long- term current use of insulin E11.65 [place] [address] [address]- 8186 Apr, [place] [address] [place] [address] [id number] [place] [address] 84038- 3467 Apr, [place] [address] [place] [address]- 2607 Apr, Via [facility] [address] [place] [id number] Apr, Type 2 diabetes mellitus with hyperglycemia, [...] hyperplasia with lower urinary tract symptoms N40.1 [place] [address] [place] [address]6037- 7816 Apr, [place] [address] [address] Mar, [place] [address] [id number] [address] 4980 Mar, Via [employer] [facility] [address] [place] [id number] Mar, Type 2 diabetes mellitus with hyperglycemia, without long-term current use of insulin E11.65 ; End stage renal disease N18.6 and Shortness of breath R06.02 [facility] [place] [address] [address] 29[address] Mar, 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 [facility] [place] [id number] [place] [address] 91728- 2111 Mar, [place] [address] [place] [id number] [place] [address] 36061- 1428 Mar, [place] [address] [place] [address] 46319- 9915 Mar, [place] [address] [place] [address] [id number] [place] [address]- 3[address] Feb, Via [employer] [facility] [address] [place] [id number] Feb, Encounter for examination for admission to jail Z02.2 ; Type 2 diabetes mellitus with hyperglycemia, without long-term current use of insulin E11.65 ; 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 ; Osteopenia of multiple sites M85.89 ; End stage renal disease N18.6 ; Dialysis patient Z99.2 and Rheumatoid arthritis, involving unspecified site, unspecified rheumatoid factor presence M06.9 [facility] [place] [address] [address]- 4[address] Feb, [facility] [address] [place] [address] May, Dental examination Z01.20 [facility] [address] [place] [address] May, [facility] [address] [place] [address] 08 May, 2016 Dental examination Z01.20 [facility] [address] [place] [address] May, [facility] [address] [place] [address] Apr, Dental examination Z01.20 [facility] [address] [place] [address] Dec, Dental examination Z01.20 [facility] [address] [place] [address] Oct, Dental examination Z01.20 [facility] [address] [place] [address] Oct, Dental examination Z01.20 [facility] [address] [place] [address] Sep, Dental examination Z01.20 [facility] [address] [place] [address] Aug, Dental examination Z01.20 [facility] [place] [address] [place] [address] Jul, Dental examination Z01.20 [facility] [address] [place] [address] Jul, Dental examination Z01.20 [facility] [address] [place] [address] Jun, Dental examination Z01.20 [facility] [place] [address] [address] 14 Dec, 2014 [facility] [place] [address] [address]- 2940 Dec, [facility] [place] [id number] [address]- 3859 Mar, [facility] [place] [id number] [address] 1211 Mar, [facility] [place] [id number] Mar, [facility] [place] [id number] [address] 8626 Feb, [facility] [place] [address] [facility] [id number] [place] [address] January, [facility] [place] [address] [facility] [id number] [place] [address] January, IMMUNIZATIONS No Known Immunizations SOCIAL HISTORY Never Assessed REASON FOR VISIT Requests return call PLAN OF CARE VITAL SIGNS MEDICATIONS Medication Instructions Dosage Frequency Start Date End Date Duration Status Insulin Detemir 100 UNIT/ML Subcutaneous in AM 15 units Active RESULTS No Results PROCEDURES No Known procedures INSTRUCTIONS MEDICATIONS ADMINISTERED No Known Medications MEDICAL (GENERAL) HISTORY Type Description Date Medical History Mild High Blood Pressure Medical History Diabetes Type 2 Medical History Arthritis Surgical History umbilical hernia Hospitalization History Renal failure 02/2018 Hospitalization History Chest pain-[facility] 03/31/18
--- OUTSIDE RECORDS SUMMARY | 2018-07-20 09:56 | XMS REPORT ---
Author Author IGNACIA TIMMONS Organization [facility] Address [address] [place] [address] Care Team Providers Care Forest Ecology Professor Name Role Phone IGNACIA TIMMONS Unavailable PROBLEMS Type Condition ICD9-CM Code AYQ37-XE Code Onset Dates Condition Status SNOMED Code Problem Dialysis patient Z99.2 Active 610178731 Problem 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 Active 056908826 Problem Rheumatoid arthritis, involving unspecified site, unspecified rheumatoid factor presence M06.9 Active 55217769 Problem Dental examination V72.2 Active 29655154 Problem Type 2 diabetes mellitus with hyperglycemia, without long-term current use of insulin E11.65 Active 86937658 Problem Essential hypertension I10 Active 92543092 Problem Gait disturbance R26.9 Active 39316179 Problem 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 Active 52573830 Problem End stage renal disease N18.6 Active 32681083 Problem Primary insomnia F51.01 Active 8623997 Problem Benign prostatic hyperplasia with lower urinary tract symptoms N40.1 Active [id number] ALLERGIES No Information ENCOUNTERS Encounter Location Date Diagnosis [facility] [address] [address] Jul, [facility] [address] [address] Jun, Type 2 diabetes mellitus with hyperglycemia, without long- term current use of insulin E11.65 [facility] [id number] [place] [address] 57850- 3239 Jun, [facility] [address] [address] Jun, Type 2 diabetes mellitus with hyperglycemia, without long- term current use of insulin E11.65 [facility] [address] [address] Jun, Dysuria R30.0 and Acute cystitis without hematuria N30.00 [facility] [address] [place] [address] 27097- 4241 Jun, Type 2 diabetes mellitus with hyperglycemia, without long- term current use of insulin E11.65 [facility] [address] [address]- 7[address] May, [facility] [address] [place] [address] May, Bacterial skin infection of upper extremity L08.9 [place] [id number] [place] [address] 28278- 9463 May, Type 2 diabetes mellitus with hyperglycemia, without long- term current use of insulin E11.65 [place] [address] [place] [address] 32355- 1106 Apr, End stage renal disease N18.6 [place] [address] [place] [address] 07165- 8300 Apr, [place] [id number] [place] [address] 54830- 5632 Apr, [facility] [address] [place] [address] 20712- 9242 Apr, Type 2 diabetes mellitus with hyperglycemia, without long- term current use of insulin E11.65 [place] [address] [place] [address] 85713- 8379 Apr, [facility] [address] [place] [address] 49994- 0654 Apr, [place] [address] [place] [address] 86714- 4201 Apr, Via [facility] [address] [place] [id number] Apr, Type 2 diabetes mellitus with hyperglycemia, [...] hyperplasia with lower urinary tract symptoms N40.1 [place] [id number] [place] [address] 88335- 7645 Apr, [place] [id number] [place] [address]- 1936 Mar, [place] [address] [address]- [address] Mar, Via [employer] 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 [address] [place] [id number] Feb, Encounter for examination for admission to [facility] Z02.2 ; Type 2 diabetes mellitus with hyperglycemia, without long-term current use of insulin E11.65 ; 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 ; Osteopenia of multiple sites M85.89 ; End stage renal disease N18.6 ; Dialysis patient Z99.2 and Rheumatoid arthritis, involving unspecified site, unspecified rheumatoid factor presence M06.9 [facility] [address] [address]- 78[address] Feb, [facility] [address] [place] [address] 28 May, 2016 Dental examination Z01.20 [facility] [address] [place] [address] May, [facility] [address] [place] [address] 08 May, 2016 Dental examination Z01.20 [facility] [address] [place] [address] 06 May, 2016 [facility] [address] [place] [address] Apr, Dental examination Z01.20 [facility] [address] [place] [address] Dec, Dental examination Z01.20 [facility] [address] [place] [address] Oct, Dental examination Z01.20 [facility] [address] [place] [address] Oct, Dental examination Z01.20 [facility] [address] [place] [address] Sep, Dental examination Z01.20 [facility] [address] [place] [address] Aug, Dental examination Z01.20 [facility] [address] [place] [address] Jul, Dental examination Z01.20 [facility] [address] [place] [address] Jul, Dental examination Z01.20 [facility] [address] [place] [address] Jun, Dental examination Z01.20 [facility] [id number] [address] 8383 Dec, [facility] [address] [facility] [id number] [address]- 2546 Dec, [facility] [address] [address] 2546 Mar, [facility] [id number] [address]- 2546 Mar, [facility] [address], [place] [address]- 2546 Mar, [facility] [address] [id number], [place] [address]- 4074 Feb, [facility] [address] [id number] [address]- 1656 January, [facility] [address] [id number], [place] [address]- 7146 January, IMMUNIZATIONS No Known Immunizations SOCIAL HISTORY Never Assessed REASON FOR VISIT PLAN OF CARE VITAL SIGNS MEDICATIONS Medication Instructions Dosage Frequency Start Date End Date Duration Status Insulin Detemir 100 UNIT/ML Subcutaneous in AM and PM 15 units Jun, Active RESULTS No Results PROCEDURES No Known procedures INSTRUCTIONS MEDICATIONS ADMINISTERED No Known Medications MEDICAL (GENERAL) HISTORY Type Description Date Medical History Mild High Blood Pressure Medical History Diabetes Type 2 Medical History Arthritis Surgical History umbilical hernia Hospitalization History Renal failure 02/2018 Hospitalization History Chest pain-[facility] 03/31/18
--- OUTSIDE RECORDS SUMMARY | 2018-07-20 09:56 | XMS REPORT ---
Author Author IGNACIA TIMMONS [facility] Address [address] [place] [address] Care Team Providers Care Estimator Paperboard Boxes Name Role Phone IGNACIA TIMMONS Unavailable PROBLEMS Type Condition ICD9-CM Code EFH15-SF Code Onset Dates Condition Status SNOMED Code Problem Dialysis patient Z99.2 Active 245792541 Problem 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 Active 702686512 Problem Rheumatoid arthritis, involving unspecified site, unspecified rheumatoid factor presence M06.9 Active 75653843 Problem Dental examination V72.2 Active 62151688 Problem Type 2 diabetes mellitus with hyperglycemia, without long-term current use of insulin E11.65 Active 42240848 Problem Essential hypertension I10 Active 20283222 Problem Gait disturbance R26.9 Active 72002000 Problem 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 Active 58613923 Problem End stage renal disease N18.6 Active 36335579 Problem Primary insomnia F51.01 Active 6792702 Problem Benign prostatic hyperplasia with lower urinary tract symptoms N40.1 Active [id number] ALLERGIES No Information ENCOUNTERS Encounter Location Date Diagnosis [facility] [id number] [place] [address] Jun, Dysuria R30.0 and Acute cystitis without hematuria N30.00 [facility] [id number] [place] [address] 6258 Jun, Type 2 diabetes mellitus with hyperglycemia, without long- term current use of insulin E11.65 [facility] [id number] [place] [address]89[address] 2886 May, [facility] [id number] [place] [address] May, Bacterial skin infection of upper extremity L08.9 [facility] [address] [place] [address] May, Type 2 diabetes mellitus with hyperglycemia, without long- term current use of insulin E11.65 [facility] [address] [address] Apr, End stage renal disease N18.6 [facility] [address] [address] Apr, [facility] [id number] [place] [address] 21642- 8290 Apr, [facility] [id number] [place] [address]126- 1504 Apr, Type 2 diabetes mellitus with hyperglycemia, without long- term current use of insulin E11.65 [place] [address] [address] Apr, [place] [id number] [place] [address]69- 9813 Apr, [place] [id number] [place] [address] 18797[address] 4625 Apr, Via [facility] [place] [address] [place] [id number] Apr, Type 2 diabetes mellitus with hyperglycemia, [...] hyperplasia with lower urinary tract symptoms N40.1 [place] [id number] [place] [address]- [address]14 Apr, [place] [address] [address] Mar, [place] [id number] [address] Mar, Via [facility] [address] [place] [id number] Mar, Type 2 diabetes mellitus with hyperglycemia, without long-term current use of insulin E11.65 ; End stage renal disease N18.6 and Shortness of breath R06.02 [facility] [address] [address] Mar, 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 [facility] [id number] [place] [address]25- 1092 Mar, [place] [id number] [place] [address]83- 0837 Mar, [place] [id number] [place] [address]- 3014 Mar, [place] [id number] [place] [address] 7[address] Feb, Via [facility] [address] [place] [id number] Feb, Encounter for examination for admission to long-term Z02.2 ; Type 2 diabetes mellitus with hyperglycemia, without long-term current use of insulin E11.65 ; 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 ; Osteopenia of multiple sites M85.89 ; End stage renal disease N18.6 ; Dialysis patient Z99.2 and Rheumatoid arthritis, involving unspecified site, unspecified rheumatoid factor presence M06.9 [facility] [address] [address] Feb, [facility] [address] [place] [address] May, Dental examination Z01.20 [facility] [address] [place] [address] May, [facility] [address] [place] [address] 08 May, 2016 Dental examination Z01.20 [facility] [address] [place] [address] May, [facility] [place] [address] [place] [address] Apr, Dental examination Z01.20 [facility] [place] [address] [place] [address] Dec, Dental examination Z01.20 [facility] [address] [place] [address] Oct, Dental examination Z01.20 [facility] [address] [place] [address] Oct, Dental examination Z01.20 [facility] [address] [place] [address] Sep, Dental examination Z01.20 [facility] [address] [place] [address] Aug, Dental examination Z01.20 [facility] [place] [address] [place] [address] Jul, Dental examination Z01.20 [facility] [place] [address] [place] [address] Jul, Dental examination Z01.20 [facility] [place] [address] [place] [address] Jun, Dental examination Z01.20 [facility] [address] [address] 14 Dec, 2014 [facility] [address] [address] Dec, [facility] [id number] [address] Mar, [facility] [id number] [address] Mar, [facility] [id number] [address] Mar, [facility] [id number] [address] 6[address] Feb, [facility] [address] [facility] [id number] [place] [address] January, [facility] [address] [facility] [id number] [place] [address] January, IMMUNIZATIONS No Known Immunizations SOCIAL HISTORY Never Assessed REASON FOR VISIT Referral request PLAN OF CARE VITAL SIGNS MEDICATIONS No Known Medications RESULTS No Results PROCEDURES No Known procedures INSTRUCTIONS MEDICATIONS ADMINISTERED No Known Medications MEDICAL (GENERAL) HISTORY Type Description Date Medical History Mild High Blood Pressure Medical History Diabetes Type 2 Medical History Arthritis Surgical History umbilical hernia Hospitalization History Renal failure 02/2018 Hospitalization History [facility]
--- OUTSIDE RECORDS SUMMARY | 2018-07-20 09:56 | XMS REPORT ---
Author Author GILBERTO OROPEZA Organization [facility] Address [address] [place] [address] Care Team Providers Care Gold Assayer Name Role Phone GILBERTO OROPEZA Unavailable PROBLEMS Type Condition ICD9-CM Code HST78-RC Code Onset Dates Condition Status SNOMED Code Problem Dialysis patient Z99.2 Active 911552992 Problem 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 Active 364988425 Problem Rheumatoid arthritis, involving unspecified site, unspecified rheumatoid factor presence M06.9 Active 24531655 Problem Dental examination V72.2 Active 41943893 Problem Type 2 diabetes mellitus with hyperglycemia, without long-term current use of insulin E11.65 Active 50073400 Problem Essential hypertension I10 Active 03295518 Problem Gait disturbance R26.9 Active 51124540 Problem 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 Active 06900774 Problem End stage renal disease N18.6 Active 15014548 Problem Primary insomnia F51.01 Active 2330238 Problem Benign prostatic hyperplasia with lower urinary tract symptoms N40.1 Active 88392047826324 ALLERGIES Substance Reaction Event Type Date Status Sulfacetamide Sodium Unknown Drug Allergy May, Active ENCOUNTERS Encounter Location Date Diagnosis [facility] [id number] [place] [address] Jun, Dysuria R30.0 and Acute cystitis without hematuria N30.00 [facility] [address] [place] [address] 16980- 4391 Jun, Type 2 diabetes mellitus with hyperglycemia, without long- term current use of insulin E11.65 [facility] [id number] [place] [address] 15794- 3715 May, [facility] [address] [address] May, Bacterial skin infection of upper extremity L08.9 [place] [address] [address] May, Type 2 diabetes mellitus with hyperglycemia, without long- term current use of insulin E11.65 [place] [address] [address] Apr, End stage renal disease N18.6 [place] [id number] [place] [address] 20910- 9810 Apr, [place] [id number] [place] [address] 97125- 4256 Apr, [place] [id number] [place] [address] 44644- 5543 Apr, Type 2 diabetes mellitus with hyperglycemia, without long- term current use of insulin E11.65 [place] [id number] [place] [address] 47517- 1751 Apr, [place] [id number] [place] [address] 23908- 0765 Apr, [place] [id number] [place] [address] 59390- 8993 Apr, Via [facility] [address] [place] [id number] Apr, Type 2 diabetes mellitus with hyperglycemia, [...] hyperplasia with lower urinary tract symptoms N40.1 [place] [id number] [place] [address] 09754- 6650 Apr, [place] [id number] [place] [address] 58072- 1480 Mar, [place] [address] [address] Mar, Via [facility] [address] [place] [id number] Mar, Type 2 diabetes mellitus with hyperglycemia, without long-term current use of insulin E11.65 ; End stage renal disease N18.6 and Shortness of breath R06.02 [place] [id number] [place] [address] 29995- 6585 Mar, 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 [place] [id number] [place] [address] 85157- 6348 Mar, [place] [id number] [place] [address] 79359- 9138 Mar, [place] [id number] [place] [address] 59697- 3642 Mar, [place] [id number] [place] [address] 82728- 6048 Feb, Via [facility] [address] [place] [id number] Feb, Encounter for examination for admission to penitentiary Z02.2 ; Type 2 diabetes mellitus with hyperglycemia, without long-term current use of insulin E11.65 ; 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 ; Osteopenia of multiple sites M85.89 ; End stage renal disease N18.6 ; Dialysis patient Z99.2 and Rheumatoid arthritis, involving unspecified site, unspecified rheumatoid factor presence M06.9 [place] [address] [address] Feb, [facility] [address] [place] [address] May, Dental examination Z01.20 [facility] [address] [place] [address] May, [facility] [address] [place] [address] 08 May, 2016 Dental examination Z01.20 [facility] [address] [place] [address] May, [facility] [address] [place] [address] Apr, Dental examination Z01.20 [facility] [address] [place] [address] Dec, Dental examination Z01.20 [facility] [address] [place] [address] Oct, Dental examination Z01.20 [facility] [place] [address] [place] [address] Oct, Dental examination Z01.20 [facility] [address] [place] [address] Sep, Dental examination Z01.20 [facility] [address] [place] [address] Aug, Dental examination Z01.20 [facility] [address] [place] [address] Jul, Dental examination Z01.20 [facility] [address] [place] [address] Jul, Dental examination Z01.20 [facility] [address] [place] [address] Jun, Dental examination Z01.20 [facility] [address] [address] 14 Dec, 2014 [facility] [address] [address] 6[address] Dec, [facility] [id number] [address] 7[address] Mar, [facility] [id number] [address] 7331 Mar, [facility] [id number] [address] 4744 Mar, [facility] [address] [address] 52[address] Feb, [facility] [address] [facility] [id number] [place] [address] January, [facility] [address] [facility] [id number] [address] January, IMMUNIZATIONS No Known Immunizations SOCIAL HISTORY Never Assessed REASON FOR VISIT Insect bite, possible right arm noticed yesterday JStrasserRN PLAN OF CARE Activity Details Follow Up PCP, prn Reason:if symptoms worsen or not improving VITAL SIGNS Height 67 in 2018-06-14 Weight 211.0 lbs 2018-06-14 Temperature 98.2 degrees Fahrenheit 2018-06-14 Heart Rate 72 bpm 2018-06-14 Respiratory Rate 20 2018-06-14 BMI 33.04 kg/m2 2018-06-14 Blood pressure systolic 152 mmHg 2018-06-14 Blood pressure diastolic 84 mmHg 2018-06-14 MEDICATIONS Medication Instructions Dosage Frequency Start Date End Date Duration Status PredniSONE 5 mg Orally twice a day 1 tablet 12h Active PredniSONE 5 mg Orally Once a day 1 tablet 24h Apr, Sep, 90 days Active Tamsulosin HCl 0.4 MG Orally Once a day 1 capsule 24h Active Glimepiride 4 MG Orally twice a day 1 tablet 12h Active Colace 100 mg Orally Once a day 1 capsule 24h Sep, 90 days Active Bisacodyl 10 MG Rectal Once a day 1 suppository as needed 24h Active Eliquis 2.5 MG Orally 2 times a day 1 tablet 12h 90 days Active Tamsulosin HCl 0.4 MG Orally Once a day 1 capsule 24h Apr,Sep 90 days Active Ergocalciferol 03311 UNIT Orally once weekly on Tuesdays 1 capsule Sep, 90 days Active Toprol XL 50 mg Orally Once a day 1 tablet 24h Apr, 90 days Active Bumetanide 2 MG Orally 2 times a day 1 tablet 12h 90 days Active Tylenol 325 MG Orally every 4 hrs 2 tablets as needed 4h Active Polyethylene Glycol 3350 - Orally 28 days 17 grams Apr, Sep, 90 days Active Anusol-HC 25 MG Rectal every 4 hrs 1 suppository as needed 4h Active Metoprolol Succinate ER 50 MG Orally Once a day 1 tablet 24h Active Cephalexin 500 mg Orally every 12 hrs 1 capsule 12h May, May, 7 days Active Insulin Detemir 100 UNIT/ML Subcutaneous in AM 10 units Active Melatonin 3 MG Orally Once a day 2 tablets at bedtime 24h 90 days Active RESULTS No Results PROCEDURES Procedure Date Ordered Result Body Site [facility] VISIT ESTABLISHED PATIENT Jun 14, 2018 INSTRUCTIONS MEDICATIONS ADMINISTERED No Known Medications MEDICAL (GENERAL) HISTORY Type Description Date Medical History Mild High Blood Pressure Medical History Diabetes Type 2 Medical History Arthritis Surgical History umbilical hernia Hospitalization History Renal failure 02/2018 Hospitalization History Chest pain[facility] 03/31/18
--- OUTSIDE RECORDS SUMMARY | 2018-07-20 09:57 | XMS REPORT ---
Author Author IGNACIA TIMMONS Organization [facility] [place] Address [address] [place] [address] Care Team Providers Care Twx Operator Name Role Phone IGNACIA TIMMONS Unavailable PROBLEMS Type Condition ICD9-CM Code PRW75-FM Code Onset Dates Condition Status SNOMED Code Problem Dialysis patient Z99.2 Active 395820907 Problem 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 Active 092798875 Problem Rheumatoid arthritis, involving unspecified site, unspecified rheumatoid factor presence M06.9 Active 93224352 Problem Dental examination V72.2 Active 34477194 Problem Type 2 diabetes mellitus with hyperglycemia, without long-term current use of insulin E11.65 Active 06903838 Problem Essential hypertension I10 Active 35407730 Problem Gait disturbance R26.9 Active 28257147 Problem 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 Active 39797281 Problem End stage renal disease N18.6 Active 03189528 Problem Primary insomnia F51.01 Active 2408128 Problem Benign prostatic hyperplasia with lower urinary tract symptoms N40.1 Active [id number] ALLERGIES No Information ENCOUNTERS Encounter Location Date Diagnosis [place] [id number] [place] [address]18- 6274 May, Type 2 diabetes mellitus with hyperglycemia, without long- term current use of insulin E11.65 [facility] [place] [address] [place] [address] 29735- 8868 Apr, End stage renal disease N18.6 [facility] [place] [id number] [place] [address] 07881- 6901 Apr, [place] [id number] [place] [address] 41192- 7722 Apr, [place] [id number] [place] [address] 83018- 0603 Apr, Type 2 diabetes mellitus with hyperglycemia, without long- term current use of insulin E11.65 [place] [address] [address] Apr, [place] [address] [place] [address] 09003- 9270 Apr, [place] [address] [place] [address] 24681- 0013 Apr, [facility] [address] [place] [id number] Apr, Type 2 diabetes mellitus with hyperglycemia, [...] hyperplasia with lower urinary tract symptoms N40.1 [place] [address] [place] [address] 07305- 1187 Apr, [place] [id number] [place] [address] 45831- 3121 Mar, [place] [address] [place] [address] 36621- 3193 Mar, [facility] [address] [place] [id number] Mar, Type 2 diabetes mellitus with hyperglycemia, without long-term current use of insulin E11.65 ; End stage renal disease N18.6 and Shortness of breath R06.02 [place] [address] [place] [address] 04738- 4104 Mar, 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 [place] [address] [place] [address] 48047- 8910 Mar, [place] [id number] [place] [address] 43364- 9133 Mar, [facility] [place] [address] [facility] [id number] [place] [address] 2[address] Mar, [facility] [place] [address] [facility] [id number] [address] Feb, [facility] [address] [place] [id number] Feb, Encounter for examination for admission to custodial Z02.2 ; Type 2 diabetes mellitus with hyperglycemia, without long-term current use of insulin E11.65 ; 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 ; Osteopenia of multiple sites M85.89 ; End stage renal disease N18.6 ; Dialysis patient Z99.2 and Rheumatoid arthritis, involving unspecified site, unspecified rheumatoid factor presence M06.9 [facility] [place] [address] [facility] [id number] [place] [address] Feb, [facility] [address] [place] [address] May, Dental examination Z01.20 [facility] [address] [place] [address] May, [facility] [address] [place] [address] May, Dental examination Z01.20 [facility] [address] [place] [address] May, [facility] [address] [place] [address] Apr, Dental examination Z01.20 [facility] [address] [place] [address] Dec, Dental examination Z01.20 [facility] [address] [place] [address] Oct, Dental examination Z01.20 [facility] [address] [place] [address] Oct, Dental examination Z01.20 [facility] [address] [place] [address] Sep, Dental examination Z01.20 [facility] [address] [place] [address] Aug, Dental examination Z01.20 [facility] [address] [place] [address] Jul, [facility]01.20 [facility] [address] [place] [address] Jul, Dental examination Z01.20 [facility] [address] [place] [address] Jun, Dental examination Z01.20 [facility] [place] [address] [address] Dec, [facility] [place] [id number] [place] [address] 51507- 5680 Dec, [facility] [place] [id number] [address] 04[address] Mar, [facility] [place] [id number] [place] [address] 095077- 6042 Mar, [facility] [place] [id number] [address] 2552 Mar, [facility] [place] [id number] [address] 9[address] Feb, [facility] [place] [address] [address] January, [facility] [place] [address] [address] January, IMMUNIZATIONS No Known Immunizations SOCIAL HISTORY Never Assessed REASON FOR VISIT Med list reconciliation PLAN OF CARE VITAL SIGNS MEDICATIONS Medication Instructions Dosage Frequency Start Date End Date Duration Status Ergocalciferol 89309 UNIT Orally once weekly on Tuesdays 1 capsule Active Insulin Detemir 100 UNIT/ML Subcutaneous in AM 10 units Active Melatonin 3 MG Orally Once a day 2 tablets at bedtime 24h Active Tylenol 325 MG Orally every 4 hrs 2 tablets as needed 4h Active Eliquis 2.5 MG Orally 2 times a day 1 tablet 12h Active PredniSONE 5 mg Orally twice a day 1 tablet 12h Active Trulicity 0.75 MG/0.5ML Subcutaneous once weekly as directed Feb, Not-Taking Glimepiride 4 MG Orally twice a day 1 tablet 12h Active Enema 7-19 GM/118ML Active Bisacodyl 10 MG Rectal Once a day 1 suppository as needed 24h Active Anusol-HC 25 MG Rectal every 4 hrs 1 suppository as needed 4h Active Magnesium Hydroxide 400 MG/5ML Orally Once a day 30 ml as needed 24h Not-Taking Bumetanide 2 MG Orally 2 times a day 1 tablet 12h Active Polyethylene Glycol 3350 - Orally twice a day prn constipation 17 gm Mar, Active Colace 100 mg Orally Once a day 1 capsule 24h Active Zofran ODT 4 MG Orally every 6 hrs 1 tablet on the tongue and allow to dissolve as needed 6h Mar, Active Tamsulosin HCl 0.4 MG Orally Once a day 1 capsule 24h Active Cetirizine HCl 10 mg Orally Once a day 1 tablet, give daily dosing for 2 weeks then can do PRN 24h Mar, 30 day(s) Not-Taking Metoprolol Succinate ER 50 MG Orally Once a day 1 tablet 24h Active RESULTS No Results PROCEDURES No Known procedures INSTRUCTIONS MEDICATIONS ADMINISTERED No Known Medications MEDICAL (GENERAL) HISTORY Type Description Date Medical History Mild High Blood Pressure Medical History Diabetes Type 2 Medical History Arthritis Surgical History umbilical hernia Hospitalization History Renal failure 02/2018 Hospitalization History Chest [facility] 03/31/18
--- OUTSIDE RECORDS SUMMARY | 2018-07-20 09:57 | XMS REPORT ---
Author Author IGNACIA TIMMONS Organization [facility] Address [address] [place] [address] Care Team Providers Care Director Of In Service Education Name Role Phone IGNACIA TIMMONS Unavailable PROBLEMS Type Condition ICD9-CM Code CGI69-MO Code Onset Dates Condition Status SNOMED Code Problem Dialysis patient Z99.2 Active 401149463 Problem 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 Active 953763239 Problem Rheumatoid arthritis, involving unspecified site, unspecified rheumatoid factor presence M06.9 Active 37552793 Problem Dental examination V72.2 Active 74691679 Problem Type 2 diabetes mellitus with hyperglycemia, without long-term current use of insulin E11.65 Active 72213860 Problem Essential hypertension I10 Active 63253841 Problem Gait disturbance R26.9 Active 84183070 Problem 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 Active 87146009 Problem End stage renal disease N18.6 Active 56586534 Problem Primary insomnia F51.01 Active 2533138 Problem Benign prostatic hyperplasia with lower urinary tract symptoms N40.1 Active [id number] ALLERGIES Substance Reaction Event Type Date Status Sulfacetamide Sodium Unknown Drug Allergy May, Active ENCOUNTERS Encounter Location Date Diagnosis [facility] [address] [place] [address] 23930- 0125 May, [facility] [address] [place] [address] 17043 -7696 May, Bacterial skin infection of upper extremity L08.9 [facility] [address] [place] [address] 63236- 5425 May, Type 2 diabetes mellitus with hyperglycemia, without long- term current use of insulin E11.65 [facility] [address] [place] [address] 65474- 7142 Apr, End stage renal disease N18.6 [facility] [address], [place] [address]- 9212 Apr, [place] [address], [place] [address]- 0942 Apr, [place] [address], [place] [address]- 2762 Apr, Type 2 diabetes mellitus with hyperglycemia, without long- term current use of insulin E11.65 [place] [address], [place] [address]- 8893 Apr, [place] [address], [place] [address]- 5811 Apr, [place] [address], [place] [address]- 1391 Apr, Via [facility] [address] [place] [id number] Apr, Type 2 diabetes mellitus with hyperglycemia, [...] hyperplasia with lower urinary tract symptoms N40.1 [place] [address], [place] [address]- 1873 Apr, [place] [id number] [address]- 3564 Mar, [place] [id number] [address]- 7773 Mar, [facility] [address] [place] [id number] Mar, Type 2 diabetes mellitus with hyperglycemia, without long-term current use of insulin E11.65 ; End stage renal disease N18.6 and Shortness of breath R06.02 [place] [id number] [address]- [address] 14 Mar, 2018 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 [facility] [id number] [address]- 9039 Mar, [facility] [id number] [address]- 9171 Mar, [facility] [id number] [address]- 4695 Mar, [facility] [id number], [place] [address]- 1496 Feb, [facility] [employer] [address] [place] [id number] Feb, Encounter for examination for admission to [facility] Z02.2 ; Type 2 diabetes mellitus with hyperglycemia, without long-term current use of insulin E11.65 ; 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 ; Osteopenia of multiple sites M85.89 ; End stage renal disease N18.6 ; Dialysis patient Z99.2 and Rheumatoid arthritis, involving unspecified site, unspecified rheumatoid factor presence M06.9 [facility] [id number] [address]- 3778 Feb, [facility] [address] [place] [address] May, Dental examination Z01.20 [facility] [address] [place] [address] May, [facility] [address] [place] [address] May, Dental examination Z01.20 [facility] [address] [place] [address] May, [facility] [address] [place] [address] Apr, Dental examination Z01.20 [facility] [address] [place] [address] Dec, Dental examination Z01.20 [facility] [address] [place] [address] Oct, Dental examination Z01.20 [facility] [address] [place] [address] Oct, Dental examination Z01.20 [facility] [address] [place] [address] Sep, Dental examination Z01.20 [facility] [address] [place] [address] Aug, Dental examination Z01.20 [facility] [address] [place] [address] Jul, Dental examination Z01.20 [facility] [address] [place] [address] Jul, Dental examination Z01.20 [facility] [address] [place] [address] Jun, Dental examination Z01.20 [facility] [address] [place] [address] 23432- 7757 Dec, [facility] [address] [place] [address] 22429- 5584 Dec, [facility] [address] [place] [address] 46366- 6275 Mar, [facility] [address], [place] [address]- 8561 Mar, [facility] [address] [place] [address] 85579- 7248 Mar, [facility] [address] 2068 Feb, [facility] [id number] [place] [address] 34070- 5518 January, [facility] [address], [place] [address]- 7182 January, IMMUNIZATIONS No Known Immunizations SOCIAL HISTORY Never Assessed REASON FOR VISIT Diabetes/ f/u NOAM Macdonald PLAN OF CARE Activity Details Follow Up 3 Months Reason:DM VITAL SIGNS Weight 209.6 lbs 2018-06-01 Temperature 97.8 degrees Fahrenheit 2018-06-01 Heart Rate 76 bpm 2018-06-01 Respiratory Rate 18 2018-06-01 Blood pressure systolic 132 mmHg 2018-06-01 Blood pressure diastolic 68 mmHg 2018-06-01 MEDICATIONS Medication Instructions Dosage Frequency Start Date End Date Duration Status PredniSONE 5 mg Orally Once a day 1 tablet 24h Apr, Sep, 90 days Active Melatonin 3 MG Orally Once a day 2 tablets at bedtime 24h 90 days Active Bumetanide 2 MG Orally 2 times a day 1 tablet 12h 90 days Active Toprol XL 50 mg Orally Once a day 1 tablet 24h Apr, 90 days Active Tamsulosin HCl 0.4 MG Orally Once a day 1 capsule 24h Apr,Sep 90 days Active Insulin Detemir 100 UNIT/ML Subcutaneous in AM 10 units Active Anusol-HC 25 MG Rectal every 4 hrs 1 suppository as needed 4h Active Colace 100 mg Orally Once a day 1 capsule 24h Sep, 90 days Active Eliquis 2.5 MG Orally 2 times a day 1 tablet 12h 90 days Active Polyethylene Glycol 3350 - Orally 28 days 17 grams Apr, Sep, 90 days Active Glimepiride 4 MG Orally twice a day 1 tablet 12h Active Bisacodyl 10 MG Rectal Once a day 1 suppository as needed 24h Active Ergocalciferol 68915 UNIT Orally once weekly on Tuesdays 1 capsule Sep, 90 days Active Tamsulosin HCl 0.4 MG Orally Once a day 1 capsule 24h Active Tylenol 325 MG Orally every 4 hrs 2 tablets as needed 4h Active Metoprolol Succinate ER 50 MG Orally Once a day 1 tablet 24h Active PredniSONE 5 mg Orally twice a day 1 tablet 12h Active RESULTS Name Result Date Reference Range A1C (IN HOUSE) 2018-06-01 A1C IN HOUSE 8.6 4.3 - 5.6 % Previous A1c Lot [id number] Exp date 11/2019 PROCEDURES Procedure Date Ordered Result Body Site GLYCATED HEMOGLOBIN TEST Jun 01, 2018 [facility] VISIT ESTABLISHED PATIENT Jun 01, 2018 INSTRUCTIONS MEDICATIONS ADMINISTERED No Known Medications MEDICAL (GENERAL) HISTORY Type Description Date Medical History Mild High Blood Pressure Medical History Diabetes Type 2 Medical History Arthritis Surgical History umbilical hernia Hospitalization History Renal failure 02/2018 Hospitalization History Chest pain-[facility] 03/31/18
--- OUTSIDE RECORDS SUMMARY | 2018-07-20 09:57 | XMS REPORT ---
Author Author IGNACIA TIMMONS Organization [facility] Address [address] [place] [address] Care Team Providers Care Media Sales Executive Name Role Phone IGNACIA TIMMONS Unavailable PROBLEMS Type Condition ICD9-CM Code IIO89-IY Code Onset Dates Condition Status SNOMED Code Problem Dialysis patient Z99.2 Active 233447082 Problem 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 Active 396651378 Problem Rheumatoid arthritis, involving unspecified site, unspecified rheumatoid factor presence M06.9 Active 50344161 Problem Dental examination V72.2 Active 42303486 Problem Type 2 diabetes mellitus with hyperglycemia, without long-term current use of insulin E11.65 Active 33660137 Problem Essential hypertension I10 Active 02622232 Problem Gait disturbance R26.9 Active 61373383 Problem 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 Active 38737073 Problem End stage renal disease N18.6 Active 65340386 Problem Primary insomnia F51.01 Active 0157664 Problem Benign prostatic hyperplasia with lower urinary tract symptoms N40.1 Active 25918670233947 ALLERGIES No Information ENCOUNTERS Encounter Location Date Diagnosis [place] [id number] [place] [address] 57550- 0054 May, Type 2 diabetes mellitus with hyperglycemia, without long- term current use of insulin E11.65 [facility] [address] [place] [address] 75117- 7368 Apr, End stage renal disease N18.6 [facility] [id number] [place] [address] 14514- 8049 Apr, [place] [id number] [place] [address] 75695- 5775 Apr, [place] [id number] [place] [address] 20725- 4695 Apr, Type 2 diabetes mellitus with hyperglycemia, without long- term current use of insulin E11.65 [place] [address], [place] [address]- 3037 Apr, [place] [address] [place] [address] 03480- 9942 Apr, [place] [address] [place] [address] 09824- 5707 Apr, [facility] [address] [place] [id number] Apr, Type 2 diabetes mellitus with hyperglycemia, [...] lower urinary tract symptoms N40.1 [place] [address] [place] [address] 64132- 2436 Apr, [place] [id number] [place] [address] 03772- 4918 Mar, [place] [address] [place] [address] 00137- 6910 Mar, [facility] [address] [place] [id number] Mar, Type 2 diabetes mellitus with hyperglycemia, without long-term current use of insulin E11.65 ; End stage renal disease N18.6 and Shortness of breath R06.02 [place] [address] [place] [address] 28592- 1622 Mar, 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 [place] [address] [place] [address] 56823- 8098 Mar, [place] [address] [id number] [place] [address] 53713- 9701 Mar, [facility] [address] [facility] [id number] [place] [address]- 4823 Mar, [facility] [address] [facility] [id number] [address] 2714 Feb, [facility] [address] [place] [id number] Feb, Encounter for examination for admission to snf Z02.2 ; Type 2 diabetes mellitus with hyperglycemia, without long-term current use of insulin E11.65 ; 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 ; Osteopenia of multiple sites M85.89 ; End stage renal disease N18.6 ; Dialysis patient Z99.2 and Rheumatoid arthritis, involving unspecified site, unspecified rheumatoid factor presence M06.9 [facility] [address] [facility] [id number] [place] [address]- 5180 Feb, [facility] [address] [place] [address] May, Dental examination Z01.20 [facility] [address] [place] [address] May, [facility] [address] [place] [address] May, Dental examination Z01.20 [facility] [address] [place] [address] May, [facility] [address] [place] [address] Apr, Dental examination Z01.20 [facility] [address] [place] [address] Dec, Dental examination Z01.20 [facility] [address] [place] [address] Oct, Dental examination Z01.20 [facility] [address] [place] [address] Oct, Dental examination Z01.20 [facility] [address] [place] [address] Sep, Dental examination Z01.20 [facility] [address] [place] [address] Aug, Dental examination Z01.20 [facility] [address] [place] [address] Jul, Dental examination Z01.20 [facility] [address] [place] [address] Jul, Dental examination Z01.20 [facility] [address] [place] [address] Jun, Dental examination Z01.20 [facility] [address] Dec, [facility] [id number] [place] [address] 164080- 0710 Dec, [facility] [address], [place] [address]- 5233 Mar, [facility] [id number] [place] [address] 17073- 4066 Mar, [facility] [address] 6985 Mar, [facility] [address], [place] [address] 4034 Feb, [facility] [address] [address] January, [facility] [address], [place] [address] 9277 January, IMMUNIZATIONS No Known Immunizations SOCIAL HISTORY Never Assessed REASON FOR VISIT Requests return call PLAN OF CARE VITAL SIGNS MEDICATIONS No Known Medications RESULTS No Results PROCEDURES No Known procedures INSTRUCTIONS MEDICATIONS ADMINISTERED No Known Medications MEDICAL (GENERAL) HISTORY Type Description Date Medical History Mild High Blood Pressure Medical History Diabetes Type 2 Medical History Arthritis Surgical History umbilical hernia Hospitalization History Renal failure 02/2018 Hospitalization History [facility] 03/31/18
--- OUTSIDE RECORDS SUMMARY | 2018-07-20 09:57 | XMS REPORT ---
Author Author IGNACIA TIMMONS [facility] Address [address] [place] [address] Care Team Providers Care Certified Activities Director Name Role Phone IGNACIA TIMMONS Unavailable PROBLEMS Type Condition ICD9-CM Code FNH18-LI Code Onset Dates Condition Status SNOMED Code Problem Dialysis patient Z99.2 Active 974555731 Problem 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 Active 638376643 Problem Rheumatoid arthritis, involving unspecified site, unspecified rheumatoid factor presence M06.9 Active 66733012 Problem Dental examination V72.2 Active 67743691 Problem Type 2 diabetes mellitus with hyperglycemia, without long-term current use of insulin E11.65 Active 13489510 Problem Essential hypertension I10 Active 52725679 Problem Gait disturbance R26.9 Active 66335393 Problem 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 Active 91689147 Problem End stage renal disease N18.6 Active 58513107 Problem Primary insomnia F51.01 Active 4725926 Problem Benign prostatic hyperplasia with lower urinary tract symptoms N40.1 Active [id number] ALLERGIES No Information ENCOUNTERS Encounter Location Date Diagnosis [facility] [id number] [place] [address] May, Bacterial skin infection of upper extremity L08.9 [facility] [id number] [place] [address] 17699- 4369 10 May, 2018 Type 2 diabetes mellitus with hyperglycemia, without long- term current use of insulin E11.65 [facility] [id number] [place] [address] 29369- 5835 Apr, End stage renal disease N18.6 [facility] [id number] [place] [address] 38731- 8890 14 Apr, 2018 [facility] [id number] [place] [address] 79204- 9267 Apr, [place] [id number] [address] Apr, Type 2 diabetes mellitus with hyperglycemia, without long- term current use of insulin E11.65 [place] [address] [address] Apr, [place] [address] [address] Apr, [place] [id number] [address] Apr, Via [facility] [address] [place] [id number] Apr, Type 2 diabetes mellitus with hyperglycemia, [...] hyperplasia with lower urinary tract symptoms N40.1 [place] [id number] [address] 5[address] Apr, [place] [id number] [address] 58[address] Mar, [place] [id number] [address] 6[address] Mar, Via [employer] [address] [place] [id number] Mar, Type 2 diabetes mellitus with hyperglycemia, without long-term current use of insulin E11.65 ; End stage renal disease N18.6 and Shortness of breath R06.02 [place] [id number] [address] 1604 Mar, 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 [place] [address] [address] 6[address] Mar, [facility] [address] [facility] [id number] [address] Mar, [facility] [id number], [place] [address] 8626 Mar, [facility] [address] [facility] [id number] [address] Feb, Via [facility] [address] [place] [id number] Feb, Encounter for examination for admission to senior care Z02.2 ; Type 2 diabetes mellitus with hyperglycemia, without long-term current use of insulin E11.65 ; 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 ; Osteopenia of multiple sites M85.89 ; End stage renal disease N18.6 ; Dialysis patient Z99.2 and Rheumatoid arthritis, involving unspecified site, unspecified rheumatoid factor presence M06.9 [facility] [address] [facility] [id number] [address] Feb, [facility] [address] [place] [address] May, Dental examination Z01.20 [facility] [address] [place] [address] May, [facility] [address] [place] [address] May, Dental examination Z01.20 [facility] [address] [place] [address] May, [facility] [address] [place] [address] Apr, Dental examination Z01.20 [facility] [address] [place] [address] Dec, Dental examination Z01.20 [facility] [address] [place] [address] Oct, Dental examination Z01.20 [facility] [address] [place] [address] Oct, [facility]01.20 [facility] [address] [place] [address] Sep, Dental examination Z01.20 [facility] [address] [place] [address] Aug, Dental examination Z01.20 [facility] [address] [place] [address] Jul, Dental examination Z01.20 [facility] [address] [place] [address] Jul, Dental examination Z01.20 [facility] [address] [place] [address] Jun, Dental examination Z01.20 [facility] [address] [address] Dec, [facility] [id number] [place] [address] 13642- 7146 Dec, [facility] [address] [place] [address] 77063- 9716 Mar, [facility] [id number] [place] [address] 009449- 2318 Mar, [facility] [address], [place] [address] Mar, [facility] [address] [place] [address] 218777- 2025 Feb, [facility] [address] [address] January, [facility] [address] [place] [address] 364900[address] 3845 January, IMMUNIZATIONS No Known Immunizations SOCIAL HISTORY Never Assessed REASON FOR VISIT Refill request PLAN OF CARE VITAL SIGNS MEDICATIONS Medication Instructions Dosage Frequency Start Date End Date Duration Status Eliquis 2.5 MG Orally 2 times a day 1 tablet 12h 90 days Active RESULTS No Results PROCEDURES No Known procedures INSTRUCTIONS MEDICATIONS ADMINISTERED No Known Medications MEDICAL (GENERAL) HISTORY Type Description Date Medical History Mild High Blood Pressure Medical History Diabetes Type 2 Medical History Arthritis Surgical History umbilical hernia Hospitalization History Renal failure 02/2018 Hospitalization History Chest pain-[facility] 03/31/18
--- OUTSIDE RECORDS SUMMARY | 2018-07-20 09:57 | XMS REPORT ---
Author Author IGNACIA TIMMONS Organization [facility] Address [address] [place] [address] Care Team Providers Care Manager Power Name Role Phone IGNACIA TIMMONS Unavailable PROBLEMS Type Condition ICD9-CM Code [id number] Code Onset Dates Condition Status SNOMED Code Problem Dialysis patient Z99.2 Active 979784455 Problem 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 Active 343746794 Problem Rheumatoid arthritis, involving unspecified site, unspecified rheumatoid factor presence M06.9 Active 73611870 Problem Dental examination V72.2 Active 35959948 Problem Type 2 diabetes mellitus with hyperglycemia, without long-term current use of insulin E11.65 Active 88249926 Problem Essential hypertension I10 Active 01718229 Problem Gait disturbance R26.9 Active 14681991 Problem 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 Active 44307960 Problem End stage renal disease N18.6 Active 14639665 Problem Primary insomnia F51.01 Active 2274365 Problem Benign prostatic hyperplasia with lower urinary tract symptoms N40.1 Active [id number] ALLERGIES No Information ENCOUNTERS Encounter Location Date Diagnosis [place] [id number] [place] [address] 88912- 8434 May, Type 2 diabetes mellitus with hyperglycemia, without long- term current use of insulin E11.65 [facility] [address] [place] [address] 42832- 8470 Apr, End stage renal disease N18.6 [facility] [id number] [place] [address] 66338- 7348 Apr, [place] [id number] [place] [address] 83300- 5193 Apr, [place] [id number] [place] [address] 12661- 0692 Apr, Type 2 diabetes mellitus with hyperglycemia, without long- term current use of insulin E11.65 [place] [address], [place] [address] 139[address] Apr, [place] [address] [place] [address] 01291- 4903 Apr, [place] [address] [place] [address] 93580- 7310 Apr, Via [facility] [employer] [address] [place] [id number] Apr, Type 2 diabetes mellitus with hyperglycemia, [...] hyperplasia with lower urinary tract symptoms N40.1 [place] [address] [place] [address] 06668- 4519 Apr, [place] [id number] [place] [address] 01798- 4182 Mar, [place] [address] [place] [address] 45541- 3383 Mar, Via [facility] [employer] [address] [place] [id number] Mar, Type 2 diabetes mellitus with hyperglycemia, without long-term current use of insulin E11.65 ; End stage renal disease N18.6 and Shortness of breath R06.02 [place] [address] [place] [address] 56739- 1283 Mar, 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 [place] [address] [place] [address] 18909- 6753 Mar, [place] [id number] [place] [address] 02641- 2374 Mar, [facility] [address] [facility] [id number] [place] [address] Mar, [facility] [address] [facility] [id number] [address] Feb, Via [facility] [address] [place] [id number] Feb, Encounter for examination for admission to jail Z02.2 ; Type 2 diabetes mellitus with hyperglycemia, without long-term current use of insulin E11.65 ; 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 ; Osteopenia of multiple sites M85.89 ; End stage renal disease N18.6 ; Dialysis patient Z99.2 and Rheumatoid arthritis, involving unspecified site, unspecified rheumatoid factor presence M06.9 [facility] [address] [facility] [id number] [place] [address] 2986 Feb, [facility] [address] [place] [address] May, Dental examination Z01.20 [facility] [address] [place] [address] May, [facility] [address] [place] [address] May, Dental examination Z01.20 [facility] [address] [place] [address] May, [facility] [address] [place] [address] Apr, Dental examination Z01.20 [facility] [address] [place] [address] Dec, Dental examination Z01.20 [facility] [address] [place] [address] Oct, Dental examination Z01.20 [facility] [address] [place] [address] Oct, Dental examination Z01.20 [facility] [address] [place] [address] Sep, Dental examination Z01.20 [facility] [address] [place] [address] Aug, [facility] [address] [place] [address] Jul, [facility]01.20 [facility] [address] [place] [address] Jul, Dental examination Z01.20 [facility] [address] [place] [address] Jun, Dental examination Z01.20 [facility] [address] [address] Dec, [facility] [id number] [place] [address] 54547- 1078 Dec, [facility] [address] [id number], [place] [address] 4[address] Mar, [facility] [id number] [place] [address] 24824- 4438 Mar, [facility] [id number] [place] [address] 122977- 9963 Mar, [facility] [id number] [place] [address] 523032- 5648 Feb, [facility] [address], [place] [address] January, [facility] [address], [place] [address] January, IMMUNIZATIONS No Known Immunizations SOCIAL HISTORY Never Assessed REASON FOR VISIT Discuss dismissal PLAN OF CARE Activity Details Follow Up prn Reason: VITAL SIGNS MEDICATIONS Medication Instructions Dosage Frequency Start Date End Date Duration Status Bisacodyl 10 MG Rectal Once a day 1 suppository as needed 24h Active Tamsulosin HCl 0.4 MG Orally Once a day 1 capsule 24h Active Tylenol 325 MG Orally every 4 hrs 2 tablets as needed 4h Active Polyethylene Glycol 3350 - Orally twice a day prn constipation 17 gm 14 Mar, 2018 Active Tamsulosin HCl 0.4 MG Orally Once a day 1 capsule 24h Apr,Sep 90 days Active Colace 100 mg Orally Once a day 1 capsule 24h Sep, 90 days Active Enema 7-19 GM/118ML Active Polyethylene Glycol 3350 - Orally 28 days 17 grams Apr, Sep, 90 days Active PredniSONE 5 mg Orally Once a day 1 tablet 24h Apr, Sep, 90 days Active Anusol-HC 25 MG Rectal every 4 hrs 1 suppository as needed 4h Active Bumetanide 2 MG Orally 2 times a day 1 tablet 12h 90 days Active Glimepiride 4 MG Orally twice a day 1 tablet in AM before breakfast and before supper 12h Apr, 90 days Active Zofran ODT 4 MG Orally every 6 hrs 1 tablet on the tongue and allow to dissolve as needed 6h Mar, Active Melatonin 3 MG Orally Once a day 2 tablets at bedtime 24h 90 days Active Magnesium Hydroxide 400 MG/5ML Orally Once a day 30 ml as needed 24h Not-Taking Toprol XL 50 mg Orally Once a day 1 tablet 24h Apr, 90 days Active Eliquis 2.5 MG Orally 2 times a day 1 tablet 12h 90 days Active Levemir FlexTouch 100 UNIT/ML Subcutaneous at hs 15u Apr, Active Metoprolol Succinate ER 50 MG Orally Once a day 1 tablet 24h Active Trulicity 0.75 MG/0.5ML Subcutaneous once weekly as directed Feb, Not-Taking PredniSONE 5 mg Orally twice a day 1 tablet 12h Active Insulin Detemir 100 UNIT/ML Subcutaneous in AM 10 units Active Cetirizine HCl 10 mg Orally Once a day 1 tablet, give daily dosing for 2 weeks then can do PRN 24h Mar, 30 day(s) Not-Taking Ergocalciferol 41187 UNIT Orally once weekly on Tuesdays 1 capsule Sep, 90 days Active Glimepiride 4 MG Orally twice a day 1 tablet 12h Active RESULTS No Results PROCEDURES No Known procedures INSTRUCTIONS MEDICATIONS ADMINISTERED No Known Medications MEDICAL (GENERAL) HISTORY Type Description Date Medical History Mild High Blood Pressure Medical History Diabetes Type 2 Medical History Arthritis Surgical History umbilical hernia Hospitalization History Renal failure 02/2018 Hospitalization History Chest pain-[facility] 03/31/18
--- OUTSIDE RECORDS SUMMARY | 2018-07-20 09:57 | XMS REPORT ---
Author Author IGNACIA TIMMONS Organization [facility] Address [address] [place] [address] Care Team Providers Care Power Transformer Assembler Name Role Phone IGNACIA TIMMONS Unavailable PROBLEMS Type Condition ICD9-CM Code IMR50-LX Code Onset Dates Condition Status SNOMED Code Problem Dialysis patient Z99.2 Active 399026340 Problem 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 Active 972161356 Problem Rheumatoid arthritis, involving unspecified site, unspecified rheumatoid factor presence M06.9 Active 86921020 Problem Dental examination V72.2 Active 56244931 Problem Type 2 diabetes mellitus with hyperglycemia, without long-term current use of insulin E11.65 Active 04355679 Problem Essential hypertension I10 Active 42554213 Problem Gait disturbance R26.9 Active 07599078 Problem 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 Active 58843302 Problem End stage renal disease N18.6 Active 68508465 Problem Primary insomnia F51.01 Active 8105700 Problem Benign prostatic hyperplasia with lower urinary tract symptoms N40.1 Active [id number] ALLERGIES No Information ENCOUNTERS Encounter Location Date Diagnosis [place] [id number] [place] [address]016[address] 7734 May, Type 2 diabetes mellitus with hyperglycemia, without long- term current use of insulin E11.65 [facility] [address] [place] [address] 88521- 4993 Apr, End stage renal disease N18.6 [facility] [id number] [place] [address] 57367- 6321 Apr, [place] [id number] [place] [address] 51989- 4785 Apr, [place] [id number] [place] [address] 81009- 0596 Apr, Type 2 diabetes mellitus with hyperglycemia, without long- term current use of insulin E11.65 [place] [address], [place] [address]- 0[address] Apr, [place] [address] [place] [address] 34350- 2172 Apr, [place] [address] [place] [address] 22524- 6305 Apr, Via [facility] [employer] [address] [place] [id number] Apr, Type 2 diabetes mellitus with hyperglycemia, [...] hyperplasia with lower urinary tract symptoms N40.1 [place] [address] [place] [address] 58239- 1834 Apr, [place] [id number] [place] [address] 07339- 7117 Mar, [place] [address] [place] [address] 24474- 1912 Mar, Via [facility] [employer] [address] [place] [id number] Mar, Type 2 diabetes mellitus with hyperglycemia, without long-term current use of insulin E11.65 ; End stage renal disease N18.6 and Shortness of breath R06.02 [place] [address] [place] [address] 81244- 7106 Mar, 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 [place] [address] [place] [address] 02186- 1616 Mar, [place] [id number] [place] [address] 53688- 3911 Mar, [facility] [address] [facility] [id number] [place] [address]- 3705 Mar, [facility] [address] [facility] [id number] [address] Feb, Via [facility] [address] [place] [id number] Feb, Encounter for examination for admission to retirement Z02.2 ; Type 2 diabetes mellitus with hyperglycemia, without long-term current use of insulin E11.65 ; 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 ; Osteopenia of multiple sites M85.89 ; End stage renal disease N18.6 ; Dialysis patient Z99.2 and Rheumatoid arthritis, involving unspecified site, unspecified rheumatoid factor presence M06.9 [facility] [address] [facility] [id number] [place] [address]- 4993 Feb, [facility] [address] [place] [address] May, Dental examination Z01.20 [facility] [address] [place] [address] May, [facility] [address] [place] [address] May, Dental examination Z01.20 [facility] [address] [place] [address] May, [facility] [address] [place] [address] Apr, Dental examination Z01.20 [facility] [address] [place] [address] Dec, Dental examination Z01.20 [facility] [address] [place] [address] Oct, Dental examination Z01.20 [facility] [address] [place] [address] Oct, Dental examination Z01.20 [facility] [address] [place] [address] Sep, Dental examination Z01.20 [facility] [address] [place] [address] Aug, [facility]01.20 [facility] [address] [place] [address] Jul, [facility] examination Z01.20 [facility] [address] [place] [address] Jul, Dental examination Z01.20 [facility] [address] [place] [address] Jun, Dental examination Z01.20 [facility] [address] Dec, [facility] [id number] [place] [address] 168823- 2535 Dec, [facility] [address] [address] 7934 Mar, [facility] [id number] [place] [address] 66924- 4872 Mar, [facility] [address] [address] 8845 Mar, [facility] [address], [place] [address]- 5128 Feb, [facility] [address], [place] [address]- 3135 January, [facility] [address], [place] [address]- 9268 January, IMMUNIZATIONS No Known Immunizations SOCIAL HISTORY Never Assessed REASON FOR VISIT Home health PLAN OF CARE VITAL SIGNS MEDICATIONS No Known Medications RESULTS No Results PROCEDURES No Known procedures INSTRUCTIONS MEDICATIONS ADMINISTERED No Known Medications MEDICAL (GENERAL) HISTORY Type Description Date Medical History Mild High Blood Pressure Medical History Diabetes Type 2 Medical History Arthritis Surgical History umbilical hernia Hospitalization History Renal failure 02/2018 Hospitalization History [facility] 03/31/18
--- OUTSIDE RECORDS SUMMARY | 2018-07-20 09:58 | XMS REPORT ---
Author Author IGNACIA TIMMONS [facility] Address [address] [place] [address] Care Team Providers Care Director Environmental Name Role Phone IGNACIA TIMMONS Unavailable PROBLEMS Type Condition ICD9-CM Code YAP11-PB Code Onset Dates Condition Status SNOMED Code Problem Dialysis patient Z99.2 Active 926154633 Problem 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 Active 153538571 Problem Rheumatoid arthritis, involving unspecified site, unspecified rheumatoid factor presence M06.9 Active 51424147 Problem Dental examination V72.2 Active 58702213 Problem Type 2 diabetes mellitus with hyperglycemia, without long-term current use of insulin E11.65 Active 54058583 Problem Essential hypertension I10 Active 89896739 Problem Gait disturbance R26.9 Active 84316240 Problem 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 [id number] [address] May, [facility] [address] [address] Apr, End stage renal disease N18.6 [facility] [id number] [place] [address] Apr, [facility] [id number] [place] [address] Apr, [facility] [address] [address] Apr, Type 2 diabetes mellitus with hyperglycemia, without long- term current use of insulin E11.65 [facility] [address] [address] Apr, [place] [address] [place] [address] Apr, [place] [address] [address] Apr, Via [facility] [email or web address] [address] [id number] Apr, Type 2 diabetes mellitus with hyperglycemia, [...] hyperplasia with lower urinary tract symptoms N40.1 [place] [id number] [place] [address] Apr, [place] [address] [place] [address] Mar, [place] [address] [address] Mar, Via [facility] [email or web address] [address] [id number] Mar, Type 2 diabetes mellitus with hyperglycemia, without long-term current use of insulin E11.65 ; End stage renal disease N18.6 and Shortness of breath R06.02 [place] [address] [place] [id number] [address] Mar, 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 [address] [place] [address] Feb, Via [facility] [address] [place] [id number] Feb, Encounter for examination for admission to [facility] Z02.2 ; Type 2 diabetes mellitus with hyperglycemia, without long-term current use of insulin E11.65 ; 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 ; Osteopenia of multiple sites M85.89 ; End stage renal disease N18.6 ; Dialysis patient Z99.2 and Rheumatoid arthritis, involving unspecified site, unspecified rheumatoid factor presence M06.[address] [id number] [address] Feb, [address] [address] May, Dental examination Z01.20 [facility] [address] [address] May, [facility] [address] [address] 08 May, 2016 Dental examination Z01.[address] [address] May, [facility] [address] [address] Apr, Dental examination Z01.20 [facility] [address] [address] Dec, Dental examination Z01.20 [facility] [address] [address] Oct, Dental examination Z01.20 [facility] [address] [address] Oct, Dental examination Z01.20 [facility] [address] [address] Sep, Dental examination Z01.20 [facility] [address] [address] Aug, Dental examination Z01.20 [facility] [address] [place] [address] Jul, Dental examination Z01.20 [facility] [address] [place] [address] Jul, Dental examination Z01.20 [facility] [address] [place] [address] Jun, Dental examination Z01.20 [facility] [address] [address] Dec, [facility] [address] [facility] [id number] [place] [address] Dec, [facility] [id number] [place] [address] Mar, [facility] [id number] [place] [address] Mar, [facility] [id number] [address] Mar, [facility] [id number] [address] Feb, [facility] [id number] [address] January, [facility] [address] [address] January, IMMUNIZATIONS No Known Immunizations SOCIAL HISTORY Never Assessed REASON FOR VISIT Back Pain/Medication Request PLAN OF CARE VITAL SIGNS MEDICATIONS Unknown Medications RESULTS No Results PROCEDURES No Known procedures INSTRUCTIONS MEDICATIONS ADMINISTERED No Known Medications MEDICAL (GENERAL) HISTORY Type Description Date Medical History Mild High Blood Pressure Medical History Diabetes Type 2 Medical History Arthritis Surgical History umbilical hernia Hospitalization History Renal failure 02/2018 Hospitalization History Chest pain-[facility] 03/31/18
--- OUTSIDE RECORDS SUMMARY | 2018-07-20 09:58 | XMS REPORT ---
Author Author IGNACIA TIMMONS [facility] Address [address] [place] [address] Care Team Providers Care Tank Officer Name Role Phone IGNACIA TIMMONS Unavailable PROBLEMS Type Condition ICD9-CM Code YME86-OT Code Onset Dates Condition Status SNOMED Code Problem Dialysis patient Z99.2 Active 476758416 Problem 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 Active 678270576 Problem Rheumatoid arthritis, involving unspecified site, unspecified rheumatoid factor presence M06.9 Active 55532124 Problem Dental examination V72.2 Active 44651955 Problem Type 2 diabetes mellitus with hyperglycemia, without long-term current use of insulin E11.65 Active 13514796 Problem Essential hypertension I10 Active 84082323 Problem Gait disturbance R26.9 Active 46465237 Problem 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 Active 84802043 Problem End stage renal disease N18.6 Active 95573997 Problem Primary insomnia F51.01 Active 5369948 Problem Benign prostatic hyperplasia with lower urinary tract symptoms N40.1 Active 69305419616613 ALLERGIES No Information ENCOUNTERS Encounter Location Date Diagnosis [facility] [id number], [place] [address] May, [facility] [address], [place] [address] Apr, End stage renal disease N18.6 [facility] [address] [place] [address] Apr, [facility] [id number] [place] [address] Apr, [facility] [id number], [place] [address] Apr, Type 2 diabetes mellitus with hyperglycemia, without long- term current use of insulin E11.65 [facility] [address], [place] [address] Apr, [place] [address] [place] [address] Apr, [place] [address], [place] [address] Apr, Via [facility] [employer] [address] [id number] Apr, Type 2 diabetes mellitus with hyperglycemia, [...] hyperplasia with lower urinary tract symptoms N40.1 [place] [address] [place] [address] 25[address] Apr, [place] [address] [place] [address]- 9824 Mar, [place] [address], [place] [address] Mar, Via [facility] [employer] [address] [id number] Mar, Type 2 diabetes mellitus with hyperglycemia, without long-term current use of insulin E11.65 ; End stage renal disease N18.6 and Shortness of breath R06.02 [place] [address] [place] [id number] [address] Mar, 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 [place] [address], [place] [address] Mar, [place] [id number], [place] [address] 240[address] Mar, [place] [address] [facility] [id number] [place] [address] Mar, [facility] [address] [place] [address] [id number] [address] Feb, Via [facility] [address] [place] [id number] Feb, Encounter for examination for admission to shelter Z02.2 ; Type 2 diabetes mellitus with hyperglycemia, without long-term current use of insulin E11.65 ; 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 ; Osteopenia of multiple sites M85.89 ; End stage renal disease N18.6 ; Dialysis patient Z99.2 and Rheumatoid arthritis, involving unspecified site, unspecified rheumatoid factor presence M06.[address] [id number] [address] Feb, [facility] [address] [place] [address] May, Dental examination Z01.20 [facility] [address] [place] [address] May, [facility] [address] [place] [address] May, Dental examination Z01.20 [facility] [address] [place] [address] May, [facility] [address] [place] [address] Apr, Dental examination Z01.20 [facility] [address] [place] [address] Dec, Dental examination Z01.20 [facility] [address] [place] [address] Oct, Dental examination Z01.20 [facility] [address] [place] [address] Oct, Dental examination Z01.20 [facility] [address] [place] [address] Sep, Dental examination Z01.20 [facility] [address] [place] [address] Aug, Dental examination Z01.20 [facility] [address] [place] [address] Jul, [facility]01.20 [facility] [address] [place] [address] Jul, Dental examination Z01.20 [facility] [address] [place] [address] Jun, Dental examination Z01.20 [facility] [address] Dec, [facility] [address] [place] [address]- 9218 Dec, [facility] [address] Mar, [facility] [id number], [place] [address] 4[address] Mar, [facility] [address] [address] Mar, [facility] [id number] [address] Feb, [facility] [id number] January, [facility] [address], [place] [address] January, IMMUNIZATIONS No Known Immunizations SOCIAL HISTORY Never Assessed REASON FOR VISIT Called Daughter with update PLAN OF CARE VITAL SIGNS MEDICATIONS Unknown Medications RESULTS No Results PROCEDURES No Known procedures INSTRUCTIONS MEDICATIONS ADMINISTERED No Known Medications MEDICAL (GENERAL) HISTORY Type Description Date Medical History Mild High Blood Pressure Medical History Diabetes Type 2 Medical History Arthritis Surgical History umbilical hernia Hospitalization History Renal failure 02/2018 Hospitalization History Chest pain-[facility] 03/31/18
--- OUTSIDE RECORDS SUMMARY | 2018-07-20 09:58 | XMS REPORT ---
Author Author IGNACIA TIMMONS [facility] Address [address] [place] [address] Care Team Providers Care X Ray Operator Name Role Phone IGNACIA TIMMONS Unavailable PROBLEMS Type Condition ICD9-CM Code HWC11-KM Code Onset Dates Condition Status SNOMED Code Problem Dialysis patient Z99.2 Active 547176460 Problem 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 Active 730804987 Problem Rheumatoid arthritis, involving unspecified site, unspecified rheumatoid factor presence M06.9 Active 24765451 Problem Dental examination V72.2 Active 26545028 Problem Type 2 diabetes mellitus with hyperglycemia, without long-term current use of insulin E11.65 Active 88796613 Problem Essential hypertension I10 Active 44909853 Problem Gait disturbance R26.9 Active 43738148 Problem 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 [address], [place] [address] May, [facility] [address], [place] [address] Apr, End stage renal disease N18.6 [facility] [address] [place] [address]- 2356 Apr, [facility] [id number] [place] [address]- 7318 Apr, [facility] [address], [place] [address]- [address] Apr, Type 2 diabetes mellitus with hyperglycemia, without long- term current use of insulin E11.65 [facility] [address], [place] [address]- [address] Apr, [place] [address] [place] [address]18- 1927 Apr, [place] [address], [place] [address] Apr, Via [facility] [address] [id number] Apr, Type 2 diabetes mellitus with hyperglycemia, [...] hyperplasia with lower urinary tract symptoms N40.1 [place] [address] [place] [address]88- 8056 Apr, [place] [address] [place] [address] 07966- 1511 Mar, [place] [address], [place] [address]- 8750 Mar, [facility] [address] [id number] Mar, Type 2 diabetes mellitus with hyperglycemia, without long-term current use of insulin E11.65 ; End stage renal disease N18.6 and Shortness of breath R06.02 [place] [address] [id number], [place] [address]- 8[address] Mar, 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 [address] [place] [address] [id number], [place] [address] Feb, [facility] [address] [place] [id number] Feb, Encounter for examination for admission to custodial Z02.2 ; Type 2 diabetes mellitus with hyperglycemia, without long-term current use of insulin E11.65 ; 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 ; Osteopenia of multiple sites M85.89 ; End stage renal disease N18.6 ; Dialysis patient Z99.2 and Rheumatoid arthritis, involving unspecified site, unspecified rheumatoid factor presence M06.[address] [id number], [place] [address] Feb, [facility] [address] [place] [address] May, Dental examination Z01.20 [facility] [address] [place] [address] May, [facility] [address] [place] [address] May, Dental examination Z01.20 [facility] [address] [place] [address] May, [facility] [address] [place] [address] Apr, Dental examination Z01.20 [facility] [address] [place] [address] Dec, Dental examination Z01.20 [facility] [address] [place] [address] Oct, Dental examination Z01.20 [facility] [address] [place] [address] Oct, Dental examination Z01.20 [facility] [address] [place] [address] Sep, Dental examination Z01.20 [facility] [address] [place] [address] Aug, Dental examination Z01.20 [facility] [address] [place] [address] Jul, Dental examination Z01.20 [facility] [address] [place] [address] Jul, Dental examination Z01.20 [facility] [address] [place] [address] Jun, Dental examination Z01.20 [facility] [address] [place] [address]1104- [address]24 Dec, [facility] [id number] [place] [address] Dec, [facility] [id number] [place] [address]- [address]32 Mar, [facility] [id number] [place] [address]- [address]563 Mar, [facility] [id number] [place] [address]- 0624 Mar, [facility] [id number] [place] [address]- 1381 Feb, [facility] [address]100[place], [place] [address] January, [facility] [address], [place] [address] January, IMMUNIZATIONS No Known Immunizations SOCIAL HISTORY Never Assessed REASON FOR VISIT Shelter Visit PLAN OF CARE Activity Details Follow Up prn Reason: VITAL SIGNS MEDICATIONS Medication Instructions Dosage Frequency Start Date End Date Duration Status Trulicity 0.75 MG/0.5ML Subcutaneous once weekly as directed Feb, Active Anusol-HC 25 MG Rectal every 4 hrs 1 suppository as needed 4h Active Colace 100 mg Orally Once a day 1 capsule 24h Active Flecainide Acetate 50 mg Orally Once a day 1 tablet 24h Active Eliquis 2.5 MG Orally 2 times a day 1 tablet 12h Active Tamsulosin HCl 0.4 MG Orally Once a day 1 capsule 24h Active Bumetanide 2 MG Orally 2 times a day 1 tablet 12h Active Bisacodyl 10 MG Rectal Once a day 1 suppository as needed 24h Active Magnesium Hydroxide 400 MG/5ML Orally Once a day 30 ml as needed 24h Active Melatonin 3 MG Orally Once a day 2 tablets at bedtime 24h Active Tylenol 325 MG Orally every 4 hrs 2 tablets as needed 4h Active Polyethylene Glycol 3350 - Orally Once a day prn constipation 17 gm Mar, Active Ergocalciferol 52178 UNIT Orally once weekly on Tuesdays 1 capsule Active Zofran ODT 4 MG Orally every 6 hrs 1 tablet on the tongue and allow to dissolve as needed 6h Mar, Active PredniSONE 5 mg Orally twice a day 1 tablet 12h Active Cetirizine HCl 10 mg Orally Once a day 1 tablet, give daily dosing for 2 weeks then can do PRN 24h Mar, 30 day(s) Active Insulin Detemir 100 UNIT/ML Subcutaneous in AM 10 units Active RESULTS No Results PROCEDURES Procedure Date Ordered Result Body Site Significant Complication (25 mins) April 14, 2018 INSTRUCTIONS MEDICATIONS ADMINISTERED No Known Medications MEDICAL (GENERAL) HISTORY Type Description Date Medical History Mild High Blood Pressure Medical History Diabetes Type 2 Medical History Arthritis Surgical History umbilical hernia Hospitalization History Renal failure 02/2018 Hospitalization History Chest pain-[facility] 03/31/18
--- OUTSIDE RECORDS SUMMARY | 2018-07-20 09:58 | XMS REPORT ---
Author Author LUCIAN KRISTA [facility] Address [address] [place] [address] Care Team Providers Care Split Leather Department Supervisor Name Role Phone LUCIANRAFAELKRISTA Unavailable PROBLEMS Type Condition ICD9-CM Code [id number] Code Onset Dates Condition Status SNOMED Code Problem Dialysis patient Z99.2 Active 833320178 Problem 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 Active 362873033 Problem Rheumatoid arthritis, involving unspecified site, unspecified rheumatoid factor presence M06.9 Active 20039330 Problem Dental examination V72.2 Active 06625476 Problem Type 2 diabetes mellitus with hyperglycemia, without long-term current use of insulin E11.65 Active 62889550 Problem Essential hypertension I10 Active 99282553 Problem Gait disturbance R26.9 Active 77199273 Problem 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 Active 58063925 Problem End stage renal disease N18.6 Active 72688941 Problem Primary insomnia F51.01 Active 0394103 Problem Benign prostatic hyperplasia with lower urinary tract symptoms N40.1 Active [id number] ALLERGIES No Information ENCOUNTERS Encounter Location Date Diagnosis [place] [id number], [place] [address] May, [facility] [address] [place] [id number] [place] [address]47 Apr, End stage renal disease N18.6 [facility] [address] [place] [address] 6136 Apr, [facility] [id number] [place] [address] 7549 Apr, [place] [address] [place] [address]- 2042 Apr, Type 2 diabetes mellitus with hyperglycemia, without long- term current use of insulin E11.65 [facility] [id number], [place] [address] Apr, [facility] [address] [place] [address]678[address] 6[address] Apr, [facility] [address], [place] [address] Apr, Via [facility] [address] [place] [id number] Apr, Type 2 diabetes mellitus with hyperglycemia, [...] hyperplasia with lower urinary tract symptoms N40.1 [facility] [address], [place] [address] Apr, [facility] [address] [place] [address] 9475 Mar, [place] [address] [place] [address] 26[address] Mar, Via [facility] [address] [place] [id number] Mar, Type 2 diabetes mellitus with hyperglycemia, without long-term current use of insulin E11.65 ; End stage renal disease N18.6 and Shortness of breath R06.02 [facility] [id number] [address] Mar, 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 [facility] [address] [id number], [place] [address] Mar, [facility] [id number], [place] [address] 9[address] Mar, [facility] [id number] [address] Mar, [facility] [address] [facility] [id number] [address] Feb, Via [facility] [address] [place] [id number] Feb, Encounter for examination for admission to fpc Z02.2 ; Type 2 diabetes mellitus with hyperglycemia, without long-term current use of insulin E11.65 ; 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 ; Osteopenia of multiple sites M85.89 ; End stage renal disease N18.6 ; Dialysis patient Z99.2 and Rheumatoid arthritis, involving unspecified site, unspecified rheumatoid factor presence M06.[address] [id number] [address] Feb, [address] [address] May, Dental examination Z01.[address] [address] May, [facility] [address] 08 May, 2016 Dental examination Z01.[address] [address] May, [address] [address] Apr, Dental examination Z01.[address] [address] Dec, [facility]01.20 [facility] [address] [address] Oct, Dental examination Z01.20 [facility] [address] [address] Oct, [facility] examination Z01.20 [facility] [address] [address] Sep, Dental examination Z01.[address] [address] Aug, Dental examination Z01.20 [facility] [address] [place] [address] 16 Jul, 2015 Dental examination Z01.20 [facility] [address] [place] [address] Jul, Dental examination Z01.20 [facility] [address] Jun, Dental examination Z01.20 [facility] [address], [place] [address] 14 Dec, 2014 [facility] [address], [place] [address] Dec, [facility] [address], [place] [address] Mar, [facility] [address], [place] [address] Mar, [facility] [id number], [place] [address] Mar, [facility] [address], [place] [address] Feb, [facility] [address], [place] [address] January, [facility] [id number], [place] [address] January, IMMUNIZATIONS No Known Immunizations SOCIAL HISTORY Never Assessed REASON FOR VISIT [facility] PLAN OF CARE VITAL SIGNS MEDICATIONS Medication Instructions Dosage Frequency Start Date End Date Duration Status Anusol-HC 25 MG Rectal every 4 hrs 1 suppository as needed 4h Active Tamsulosin HCl 0.4 MG Orally Once a day 1 capsule 24h Active Magnesium Hydroxide 400 MG/5ML Orally Once a day 30 ml as needed 24h Active Insulin Detemir 100 UNIT/ML Subcutaneous 2 times a day 4 units 12h Active Zofran ODT 4 MG Orally every 6 hrs 1 tablet on the tongue and allow to dissolve as needed 6h Mar, Active Flecainide Acetate 50 mg Orally Once a day 1 tablet 24h Active Bumetanide 1 MG Orally Friday, friday, friday,friday 1 tablet Active Bisacodyl 10 MG Rectal Once a day 1 suppository as needed 24h Active Trulicity 0.75 MG/0.5ML Subcutaneous once weekly as directed Feb, Not-Taking Pioglitazone HCl 30 MG Orally Once a day 1 tablet 24h Active PredniSONE 5 mg Orally twice a day 1 tablet 12h Active Ergocalciferol 61248 UNIT Orally once weekly on Tuesdays 1 capsule Active Tylenol 325 MG Orally every 4 hrs 2 tablets as needed 4h Active Melatonin 3 MG Orally Once a day 2 tablets at bedtime 24h Active Glimepiride 4 MG Orally twice a day 1 tablet 12h Active Cetirizine HCl 10 mg Orally Once a day 1 tablet, give daily dosing for 2 weeks then can do PRN 24h Mar, 30 day(s) Active Colace 100 mg Orally Once a day 1 capsule 24h Active Eliquis 2.5 MG Orally 2 times a day 1 tablet 12h Active RESULTS No Results PROCEDURES No Known procedures INSTRUCTIONS MEDICATIONS ADMINISTERED No Known Medications MEDICAL (GENERAL) HISTORY Type Description Date Medical History Mild High Blood Pressure Medical History Diabetes Type 2 Medical History Arthritis Surgical History umbilical hernia Hospitalization History Renal failure 02/2018 Hospitalization History Chest pain-[facility] 03/31/18
--- OUTSIDE RECORDS SUMMARY | 2018-07-20 09:58 | XMS REPORT ---
Author Author IGNACIA TIMMONS [facility] Address [address] [place] [address] Care Team Providers Care Software Validation Engineer Name Role Phone IGNACIA TIMMONS Unavailable PROBLEMS Type Condition ICD9-CM Code [id number] Code Onset Dates Condition Status SNOMED Code Problem Dialysis patient Z99.2 Active 683528621 Problem 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 Active 793989959 Problem Rheumatoid arthritis, involving unspecified site, unspecified rheumatoid factor presence M06.9 Active 15901216 Problem Dental examination V72.2 Active 49019706 Problem Type 2 diabetes mellitus with hyperglycemia, without long-term current use of insulin E11.65 Active 32992429 Problem Essential hypertension I10 Active 81919700 Problem Gait disturbance R26.9 Active 98184821 Problem 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 Active 12049585 Problem End stage renal disease N18.6 Active 42466879 Problem Primary insomnia F51.01 Active 3349460 Problem Benign prostatic hyperplasia with lower urinary tract symptoms N40.1 Active 53200007271342 ALLERGIES No Information ENCOUNTERS Encounter Location Date Diagnosis [facility] [address], [place] [address] May, [facility] [address], [place] [address] Apr, End stage renal disease N18.6 [facility] [address] [place] [address] Apr, [facility] [address] [place] [id number] [place] [address] 7[address] Apr, [facility] [address], [place] [address] Apr, Type 2 diabetes mellitus with hyperglycemia, without long- term current use of insulin E11.65 [facility] [address], [place] [address] Apr, [place] [address] [place] [address]- 1289 Apr, [place] [address], [place] [address] Apr, Via [facility] [address] [place] [id number] Apr, Type 2 diabetes mellitus with hyperglycemia, [...] hyperplasia with lower urinary tract symptoms N40.1 [place] [address] [place] [address]- [address] Apr, [place] [address] [place] [address]5626- 5568 Mar, [place] [address], [place] [address] 1457 Mar, [facility] [address] [place] [id number] Mar, Type 2 diabetes mellitus with hyperglycemia, without long-term current use of insulin E11.65 ; End stage renal disease N18.6 and Shortness of breath R06.02 [place] [address] [place] [id number], [place] [address] 96[address] Mar, 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 [place] [address], [place] [address]- 5087 Mar, [place] [address], [place] [address]- 7245 Mar, [place] [address] [facility] [id number] [place] [address]- 1233 Mar, [facility] [address] [place] [address] [id number], [place] [address] Feb, [facility] [address] [place] [id number] Feb, Encounter for examination for admission to senior care Z02.2 ; Type 2 diabetes mellitus with hyperglycemia, without long-term current use of insulin E11.65 ; 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 ; Osteopenia of multiple sites M85.89 ; End stage renal disease N18.6 ; Dialysis patient Z99.2 and Rheumatoid arthritis, involving unspecified site, unspecified rheumatoid factor presence M06.[address] [id number], [place] [address] Feb, [facility] [address] [place] [address] May, Dental examination Z01.20 [facility] [address] [place] [address] May, [facility] [address] [place] [address] May, Dental examination Z01.20 [facility] [address] [place] [address] May, [facility] [address] [place] [address] Apr, Dental examination Z01.20 [facility] [address] [place] [address] Dec, Dental examination Z01.20 [facility] [address] [place] [address] Oct, Dental examination Z01.20 [facility] [address] [place] [address] Oct, Dental examination Z01.20 [facility] [address] [place] [address] Sep, Dental examination Z01.20 [facility] [address] [place] [address] Aug, Dental examination Z01.20 [facility] [address] [place] [address] Jul, Dental examination Z01.20 [facility] [address] [place] [address] Jul, Dental examination Z01.20 [facility] [address] [place] [address] Jun, Dental examination Z01.20 [facility] [address] Dec, [facility] [address] [place] [address]1092- 3540 Dec, [facility] [address] [place] [id number] [place] [address]- 1655 Mar, [facility] [address] [id number] [place] [address] 467[address]- 9962 Mar, [facility] [address], [place] [address]- 53[address] Mar, [facility] [address] [place] [id number] [place] [address] 39[address]- 1828 Feb, [facility] [address] January, [facility] [address], [place] [address] January, IMMUNIZATIONS No Known Immunizations SOCIAL HISTORY Never Assessed REASON FOR VISIT Add Miralax 17gm daily prn to med list PLAN OF CARE VITAL SIGNS MEDICATIONS Medication Instructions Dosage Frequency Start Date End Date Duration Status Polyethylene Glycol 3350 - Orally Once a day prn constipation 17 gm Mar, Active RESULTS No Results PROCEDURES No Known procedures INSTRUCTIONS MEDICATIONS ADMINISTERED No Known Medications MEDICAL (GENERAL) HISTORY Type Description Date Medical History Mild High Blood Pressure Medical History Diabetes Type 2 Medical History Arthritis Surgical History umbilical hernia Hospitalization History Renal failure 02/2018 Hospitalization History Chest pain-[facility] 03/31/18
--- OUTSIDE RECORDS SUMMARY | 2018-07-20 09:58 | XMS REPORT ---
Author Author IGNACIA TIMMONS [facility] Address [address] [place] [address] Care Team Providers Care Patrol Commander Name Role Phone IGNACIA TIMMONS Unavailable PROBLEMS Type Condition ICD9-CM Code PFU71-JH Code Onset Dates Condition Status SNOMED Code Problem Dialysis patient Z99.2 Active 497364808 Problem 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 Active 486467422 Problem Rheumatoid arthritis, involving unspecified site, unspecified rheumatoid factor presence M06.9 Active 80202238 Problem Dental examination V72.2 Active 23017537 Problem Type 2 diabetes mellitus with hyperglycemia, without long-term current use of insulin E11.65 Active 85431270 Problem Essential hypertension I10 Active 54603432 Problem Gait disturbance R26.9 Active 72385000 Problem 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 Active 98131783 Problem End stage renal disease N18.6 Active 87600912 Problem Primary insomnia F51.01 Active 2851913 Problem Benign prostatic hyperplasia with lower urinary tract symptoms N40.1 Active 54162945803056 ALLERGIES No Information ENCOUNTERS Encounter Location Date Diagnosis [facility] [address], [place] [address] May, [facility] [address], [place] [address] 8014 Apr, End stage renal disease N18.6 [facility] [address] [place] [address]- 5252 Apr, [facility] [address] [place] [id number] [place] [address]- 9126 Apr, [facility] [address], [place] [address]- 1264 Apr, Type 2 diabetes mellitus with hyperglycemia, without long- term current use of insulin E11.65 [facility] [address], [place] [address]- 8[address] Apr, [place] [address] [place] [address]- 8733 Apr, [place] [address], [place] [address]- 3[address] Apr, Via [facility] [address] [place] [place] [id number] Apr, Type 2 diabetes mellitus with hyperglycemia, [...] hyperplasia with lower urinary tract symptoms N40.1 [place] [address] [place] [address]3671- 3614 Apr, [place] [address] [place] [address] 01146- 1921 Mar, [place] [address], [place] [address]- 9253 Mar, [facility] [employer] [address] [place] [id number] Mar, Type 2 diabetes mellitus with hyperglycemia, without long-term current use of insulin E11.65 ; End stage renal disease N18.6 and Shortness of breath R06.02 [place] [address] [place] [id number], [place] [address]- 2512 Mar, 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 [id number], [place] [address] Mar, [facility] [address] [id number], [place] [address]- [address] Feb, Via [facility] [address] [place] [id number] Feb, Encounter for examination for admission to long-term Z02.2 ; Type 2 diabetes mellitus with hyperglycemia, without long-term current use of insulin E11.65 ; 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 ; Osteopenia of multiple sites M85.89 ; End stage renal disease N18.6 ; Dialysis patient Z99.2 and Rheumatoid arthritis, involving unspecified site, unspecified rheumatoid factor presence M06.[address] [id number], [place] [address] Feb, [address] [address] May, Dental examination Z01.20 [facility] [address] [address] May, [facility] [address] [address] 08 May, 2016 Dental examination Z01.[address] [address] May, [facility] [address] [address] Apr, Dental examination Z01.20 [facility] [address] [address] Dec, Dental examination Z01.20 [facility] [address] [address] Oct, Dental examination Z01.20 [facility] [address] [address] Oct, Dental examination Z01.20 [facility] [address] [address] Sep, Dental examination Z01.20 [facility] [address] [address] Aug, Dental examination Z01.20 [facility] [address] [place] [address] Jul, Dental examination Z01.20 [facility] [address] [place] [address] Jul, Dental examination Z01.20 [facility] [address] [place] [address] Jun, Dental examination Z01.20 [facility] [address] [place] [id number], [place] [address]- [address] Dec, [facility] [address] [facility] [id number] [place] [address]23- 2684 Dec, [facility] [address] [place] [address] 65[address]- 0445 Mar, [facility] [address] [place] [address] 88[address]- 0091 Mar, [facility] [address] [id number] [place] [address] 10387- 9749 Mar, [facility] [address], [place] [address]- 1233 Feb, [facility] [address] [place] [address]- 8432 January, [facility] [address], [place] [address] January, IMMUNIZATIONS No Known Immunizations SOCIAL HISTORY Never Assessed REASON FOR VISIT Chest pain PLAN OF CARE VITAL SIGNS MEDICATIONS Unknown Medications RESULTS No Results PROCEDURES No Known procedures INSTRUCTIONS MEDICATIONS ADMINISTERED No Known Medications MEDICAL (GENERAL) HISTORY Type Description Date Medical History Mild High Blood Pressure Medical History Diabetes Type 2 Medical History Arthritis Surgical History umbilical hernia Hospitalization History Renal failure 02/2018 Hospitalization History Chest [facility] 03/31/18
--- OUTSIDE RECORDS SUMMARY | 2018-07-20 09:58 | XMS REPORT ---
Author Author IGNACIA TIMMONS Organization [facility] Address [address] [place] [address] Care Team Providers Care Safety Sealer Name Role Phone IGNACIA TIMMONS Unavailable PROBLEMS Type Condition ICD9-CM Code VTW49-GZ Code Onset Dates Condition Status SNOMED Code Problem Dialysis patient Z99.2 Active 240657922 Problem 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 Active 696250923 Problem Rheumatoid arthritis, involving unspecified site, unspecified rheumatoid factor presence M06.9 Active 52662251 Problem Dental examination V72.2 Active 25573812 Problem Type 2 diabetes mellitus with hyperglycemia, without long-term current use of insulin E11.65 Active 33130272 Problem Essential hypertension I10 Active 42716462 Problem Gait disturbance R26.9 Active 93144384 Problem 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 Active 70167591 Problem End stage renal disease N18.6 Active 57612878 Problem Primary insomnia F51.01 Active 4803291 Problem Benign prostatic hyperplasia with lower urinary tract symptoms N40.1 Active [id number] ALLERGIES Substance Reaction Event Type Date Status Sulfacetamide Sodium Unknown Drug Allergy Mar, Active ENCOUNTERS Encounter Location Date Diagnosis [facility] [id number] [address] May, [facility] [id number] [place] [address]53[address] 8313 Apr, End stage renal disease N18.6 [facility] [id number] [place] [address]- 0510 Apr, [facility] [id number] [place] [address] 32342- 6955 Apr, [facility] [id number] [address] Apr, Type 2 diabetes mellitus with hyperglycemia, without long- term current use of insulin E11.65 [place] [address] [address] Apr, [place] [address] [place] [address]5714- 4016 Apr, [place] [address] [place] [address]887- 5054 Apr, Via [facility] [facility] [address] [place] [id number] Apr, Type 2 diabetes mellitus with hyperglycemia, [...] hyperplasia with lower urinary tract symptoms N40.1 [place] [address] [place] [address] 21253- 3293 Apr, [place] [id number] [place] [address] 97372- 0712 Mar, [place] [address] [place] [address]40- [address] Mar, [facility] [address] [place] [id number] Mar, Type 2 diabetes mellitus with hyperglycemia, without long-term current use of insulin E11.65 ; End stage renal disease N18.6 and Shortness of breath R06.02 [place] [address] [place] [address] 22867- 7520 Mar, 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 [id number] [place] [address] Mar, [facility] [address] [facility] [id number] [address] Feb, Via [facility] [address] [place] [id number] Feb, Encounter for examination for admission to fdc Z02.2 ; Type 2 diabetes mellitus with hyperglycemia, without long-term current use of insulin E11.65 ; 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 ; Osteopenia of multiple sites M85.89 ; End stage renal disease N18.6 ; Dialysis patient Z99.2 and Rheumatoid arthritis, involving unspecified site, unspecified rheumatoid factor presence M06.9 [facility] [address] [facility] [id number] [place] [address] Feb, [address] [address] May, Dental examination Z01.[address] [address] May, [address] [address] 08 May, 2016 Dental examination Z01.[address] [address] May, [address] [address] Apr, Dental examination Z01.[address] [address] Dec, Dental examination Z01.[address] [address] Oct, Dental examination Z01.[address] [address] Oct, Dental examination Z01.[address] [address] Sep, Dental examination Z01.[address] [address] Aug, Dental examination Z01.20 [facility] [address] [place] [address] Jul, Dental examination Z01.20 [facility] [address] [place] [address] Jul, Dental examination Z01.20 [facility] [address] [place] [address] Jun, Dental examination Z01.20 [facility] [address] [place] [address] 97[address] Dec, [facility] [address] [address] Dec, [facility] [address] [place] [address]64- 2076 Mar, [facility] [id number] [place] [address] 392438- 8642 Mar, [facility] [id number] [place] [address] 13529- 5811 Mar, [facility] [address] [place] [address] 084142- 1020 Feb, [facility] [address], [place] [address] January, [facility] [address] [address] January, IMMUNIZATIONS No Known Immunizations SOCIAL HISTORY Never Assessed REASON FOR VISIT medication request PLAN OF CARE VITAL SIGNS MEDICATIONS Medication Instructions Dosage Frequency Start Date End Date Duration Status Cetirizine HCl 10 mg Orally Once a day 1 tablet, give daily dosing for 2 weeks then can do PRN 24h Mar, 30 day(s) Active Zofran ODT 4 MG Orally every 6 hrs 1 tablet on the tongue and allow to dissolve as needed 6h Mar, Active RESULTS No Results PROCEDURES No Known procedures INSTRUCTIONS MEDICATIONS ADMINISTERED No Known Medications MEDICAL (GENERAL) HISTORY Type Description Date Medical History Mild High Blood Pressure Medical History Diabetes Type 2 Medical History Arthritis Surgical History umbilical hernia Hospitalization History Renal failure 02/2018 Hospitalization History Chest pain-[facility] 03/31/18
--- OUTSIDE RECORDS SUMMARY | 2018-07-20 09:59 | XMS REPORT ---
Author Author SOREN GOSS Organization [facility] Address [address] [place] [address] Phone Unavailable Care Team Providers Care Precipitate Washer Name Role Phone SOREN GOSS Unavailable Unavailable PROBLEMS Type Condition ICD9-CM Code TNF19-LN Code Onset Dates Condition Status SNOMED Code Problem Dental examination V72.2 Active 89253844 Assessment Dental examination Z01.20 May, Active 71701877 ALLERGIES Substance Reaction Event Type Date Status Sulfacetamide Sodium Unknown Drug Allergy May, Active SOCIAL HISTORY No smoking Hx information available PLAN OF CARE VITAL SIGNS MEDICATIONS Medication Instructions Dosage Frequency Start Date End Date Duration Status Glimepiride 1 MG Orally Once a day 24h Active Tramadol HCl 50 MG 1 tablet as needed Active Aspirin 325 mg take 1 tablet (325 mg) by oral route once daily Mar, Active Lisinopril 10 MG Orally Once a day 1 tablet 24h Active Carvedilol 6.25 MG 2 Tablets Active Prednisone 5 MG Oral Every Other Day 1 Tablet Active RESULTS No Results PROCEDURES Procedure Date Ordered Related Diagnosis Body Site Dental no charge May 30, 2016 IMMUNIZATIONS No Known Immunizations
--- OUTSIDE RECORDS SUMMARY | 2018-07-20 09:59 | XMS REPORT ---
Author Author [facility] Address [address] [place] [address] Care Team Providers Care Certified Orthotist Name Role Phone IGNACIA TIMMONS Unavailable PROBLEMS Type Condition ICD9-CM Code XTI04-UO Code Onset Dates Condition Status SNOMED Code Problem Dialysis patient Z99.2 Active 679278370 Problem 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 Active 396480660 Problem Rheumatoid arthritis, involving unspecified site, unspecified rheumatoid factor presence M06.9 Active 27981629 Problem Dental examination V72.2 Active 24138391 Problem Type 2 diabetes mellitus with hyperglycemia, without long-term current use of insulin E11.65 Active 97341678 Problem Essential hypertension I10 Active 41278572 Problem Gait disturbance R26.9 Active 52703350 Problem 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 Active 01379842 Problem End stage renal disease N18.6 Active 64541261 Problem Primary insomnia F51.01 Active 7143586 Problem Benign prostatic hyperplasia with lower urinary tract symptoms N40.1 Active 20737229827062 ALLERGIES No Information ENCOUNTERS Encounter Location Date Diagnosis [facility] [address] [address] May, [facility] [address] [address] Apr, End stage renal disease N18.6 [facility] [address] [place] [address] 07462- 2284 Apr, [facility] [id number] [place] [address] 93213- 1901 Apr, [facility] [address] [address] Apr, Type 2 diabetes mellitus with hyperglycemia, without long- term current use of insulin E11.65 [facility] [address] [address] Apr, [place] [address] [place] [address] 67743- 9545 Apr, [place] [address] [address] Apr, Via [facility] [address] [place] [id number] Apr, Type 2 diabetes mellitus with hyperglycemia, [...] lower urinary tract symptoms N40.1 [place] [address] [place] [address]96- 0305 Apr, [place] [address] [place] [address] 15780- 7575 Mar, [place] [address] [address] Mar, [facility] [address] [place] [id number] Mar, Type 2 diabetes mellitus with hyperglycemia, without long-term current use of insulin E11.65 ; End stage renal disease N18.6 and Shortness of breath R06.02 [place] [id number] [address]- 67[address] Mar, 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 [place] [address] [address] 119[address] Mar, [place] [address] [address]- 5[address] Mar, [place] [address] [facility] [id number] [address] Mar, [facility] [address] [place] [id number] [address] Feb, Via [facility] [address] [place] [id number] Feb, Encounter for examination for admission to half-way Z02.2 ; Type 2 diabetes mellitus with hyperglycemia, without long-term current use of insulin E11.65 ; 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 ; Osteopenia of multiple sites M85.89 ; End stage renal disease N18.6 ; Dialysis patient Z99.2 and Rheumatoid arthritis, involving unspecified site, unspecified rheumatoid factor presence M06.[address] [id number] [address] Feb, [address] [address] May, Dental examination Z01.20 [facility] [address] [address] May, [facility] [address] [address] 08 May, 2016 Dental examination Z01.[address] [address] May, [facility] [address] [address] Apr, Dental examination Z01.20 [facility] [address] [address] Dec, Dental examination Z01.20 [facility] [address] [address] Oct, Dental examination Z01.20 [facility] [address] [address] Oct, Dental examination Z01.20 [facility] [address] [address] Sep, Dental examination Z01.20 [facility] [address] [address] Aug, Dental examination Z01.20 [facility] [address] [place] [address] Jul, Dental examination Z01.20 [facility] [address] [place] [address] Jul, Dental examination Z01.20 [facility] [address] [place] [address] Jun, Dental examination Z01.20 [facility] [id number] [address] 14 Dec, 2014 [facility] [address] [facility] [id number] [place] [address] 92353- 1845 Dec, [facility] [address] [place] [address] 41378- 6336 Mar, [facility] [id number] [place] [address]- 52[address] Mar, [facility] [id number] [place] [address] 26[address]- 8846 Mar, [facility] [address] [address] 7[address] Feb, [facility] [address] [place] [address] 48041- 8703 January, [facility] [address] [address] January, IMMUNIZATIONS No Known Immunizations SOCIAL HISTORY Never Assessed REASON FOR VISIT New Admission PLAN OF CARE Activity Details Follow Up prn Reason: VITAL SIGNS MEDICATIONS Medication Instructions Dosage Frequency Start Date End Date Duration Status Trulicity 0.75 MG/0.5ML Subcutaneous once weekly as directed Feb, Active RESULTS No Results PROCEDURES No Known procedures INSTRUCTIONS MEDICATIONS ADMINISTERED No Known Medications MEDICAL (GENERAL) HISTORY Type Description Date Medical History Mild High Blood Pressure Medical History Diabetes Type 2 Medical History Arthritis Surgical History umbilical hernia Hospitalization History Renal failure 02/2018 Hospitalization History Chest pain-[facility] 03/31/18
--- OUTSIDE RECORDS SUMMARY | 2018-07-20 09:59 | XMS REPORT ---
Author Author IGNACIA TIMMONS Organization [facility] Address [address] [place] [address] Care Team Providers Care Puttier Name Role Phone IGNACIA TIMMONS Unavailable PROBLEMS Type Condition ICD9-CM Code JNY28-GQ Code Onset Dates Condition Status SNOMED Code Problem Dialysis patient Z99.2 Active 799129849 Problem 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 Active 983481613 Problem Rheumatoid arthritis, involving unspecified site, unspecified rheumatoid factor presence M06.9 Active 88054854 Problem Dental examination V72.2 Active 71180508 Problem Type 2 diabetes mellitus with hyperglycemia, without long-term current use of insulin E11.65 Active 21194845 Problem Essential hypertension I10 Active 29345371 Problem Gait disturbance R26.9 Active 90578283 Problem 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 Active 85948898 Problem End stage renal disease N18.6 Active 48624443 Problem Primary insomnia F51.01 Active 7398162 Problem Benign prostatic hyperplasia with lower urinary tract symptoms N40.1 Active 26514345735697 ALLERGIES No Information ENCOUNTERS Encounter Location Date Diagnosis [place] [id number] [place] [address] 912[address]- 7945 May, Type 2 diabetes mellitus with hyperglycemia, without long- term current use of insulin E11.65 [facility] [address] [place] [address] 26[address]- 3553 Apr, End stage renal disease N18.6 [facility] [id number] [place] [address] 49064- 2056 Apr, [place] [id number] [place] [address] 09250- 0047 Apr, [place] [id number] [place] [address] 38924- 1710 Apr, Type 2 diabetes mellitus with hyperglycemia, without long- term current use of insulin E11.65 [place] [address], [place] [address]- 37[address] Apr, [place] [address] [place] [address] 93093- 7838 Apr, [place] [address] [place] [address] 59304- 2125 Apr, Via [facility] [employer] [address] [place] [id number] Apr, Type 2 diabetes mellitus with hyperglycemia, [...] hyperplasia with lower urinary tract symptoms N40.1 [place] [address] [place] [address] 05101- 3852 Apr, [place] [id number] [place] [address] 40017- 9832 Mar, [place] [address] [place] [address] 76669- 3049 Mar, [facility] [employer] [address] [place] [id number] Mar, Type 2 diabetes mellitus with hyperglycemia, without long-term current use of insulin E11.65 ; End stage renal disease N18.6 and Shortness of breath R06.02 [place] [address] [place] [address] 36200- 8520 Mar, 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 [place] [address] [place] [address] 46975- 1812 Mar, [place] [id number] [place] [address] 02184- 3344 Mar, [facility] [address] [facility] [id number] [place] [address]- 64[address] Mar, [facility] [address] [facility] [id number] [address] Feb, [facility] [address] [place] [id number] Feb, Encounter for examination [facility] to [facility] Z02.2 ; Type 2 diabetes mellitus with hyperglycemia, without long-term current use of insulin E11.65 ; 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 ; Osteopenia of multiple sites M85.89 ; End stage renal disease N18.6 ; Dialysis patient Z99.2 and Rheumatoid arthritis, involving unspecified site, unspecified rheumatoid factor presence M06.9 [facility] [address] [facility] [id number] [place] [address]- [address] Feb, [facility] [address] [place] [address] May, Dental examination Z01.20 [facility] [address] [place] [address] May, [facility] [address] [place] [address] May, Dental examination Z01.20 [facility] [address] [place] [address] May, [facility] [address] [place] [address] Apr, Dental examination Z01.20 [facility] [address] [place] [address] Dec, Dental examination Z01.20 [facility] [address] [place] [address] Oct, Dental examination Z01.20 [facility] [address] [place] [address] Oct, Dental examination Z01.20 [facility] [address] [place] [address] Sep, Dental examination Z01.20 [facility] [address] [place] [address] Aug, Dental examination Z01.20 [facility] [address] [place] [address] Jul, Dental examination Z01.20 [facility] [address] [place] [address] Jul, Dental examination Z01.20 [facility] [address] [place] [address] Jun, Dental examination Z01.20 [facility] [address] [address] Dec, [facility] [id number] [place] [address] 593061- 2789 Dec, [facility] [address], [place] [address] 5[address] Mar, [facility] [id number] [place] [address] 74432- 0087 Mar, [facility] [id number] [place] [address] 914211- 3582 Mar, [facility] [id number] [place] [address] 14791- 5833 Feb, [facility] [address] January, [facility] [address], [place] [address] 77[address] January, IMMUNIZATIONS No Known Immunizations SOCIAL HISTORY Never Assessed REASON FOR VISIT HH note PLAN OF CARE VITAL SIGNS MEDICATIONS No Known Medications RESULTS No Results PROCEDURES No Known procedures INSTRUCTIONS MEDICATIONS ADMINISTERED No Known Medications MEDICAL (GENERAL) HISTORY Type Description Date Medical History Mild High Blood Pressure Medical History Diabetes Type 2 Medical History Arthritis Surgical History umbilical hernia Hospitalization History Renal failure 02/2018 Hospitalization History Chest pain-[facility] 03/31/18
--- OUTSIDE RECORDS SUMMARY | 2018-07-20 09:59 | XMS REPORT ---
Author Author IGNACIA TIMMONS Organization [facility] Address [address] [place] [address] Care Team Providers Care Coating Mixer Tender Name Role Phone IGNACIA TIMMONS Unavailable PROBLEMS Type Condition ICD9-CM Code XOX44-LT Code Onset Dates Condition Status SNOMED Code Problem Dialysis patient Z99.2 Active 176499282 Problem 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 Active 098055566 Problem Rheumatoid arthritis, involving unspecified site, unspecified rheumatoid factor presence M06.9 Active 01755262 Problem Dental examination V72.2 Active 44106878 Problem Type 2 diabetes mellitus with hyperglycemia, without long-term current use of insulin E11.65 Active 59749543 Problem Essential hypertension I10 Active 84774054 Problem Gait disturbance R26.9 Active 60777541 Problem 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 Active 82917522 Problem End stage renal disease N18.6 Active 74583042 Problem Primary insomnia F51.01 Active 5787489 Problem Benign prostatic hyperplasia with lower urinary tract symptoms N40.1 Active [id number] ALLERGIES No Information ENCOUNTERS Encounter Location Date Diagnosis [place] [id number] [place] [address]33- 7569 May, Type 2 diabetes mellitus with hyperglycemia, without long- term current use of insulin E11.65 [facility] [address] [place] [address] 87344- 1456 Apr, End stage renal disease N18.6 [facility] [id number] [place] [address] 75390- 9971 Apr, [place] [id number] [place] [address] 38832- 4984 Apr, [place] [id number] [place] [address] 21798- 1472 Apr, Type 2 diabetes mellitus with hyperglycemia, without long- term current use of insulin E11.65 [place] [address], [place] [address] 1768 Apr, [place] [address] [place] [address] 50795- 4106 Apr, [place] [address] [place] [address] 12835- 2744 Apr, Via [facility] [address] [place] [id number] Apr, Type 2 diabetes mellitus with hyperglycemia, [...] hyperplasia with lower urinary tract symptoms N40.1 [place] [address] [place] [address] 58781- 3471 Apr, [place] [id number] [place] [address] 04764- 9828 Mar, [place] [address] [place] [address] 81731- 8553 Mar, [facility] [facility] [address] [place] [id number] Mar, Type 2 diabetes mellitus with hyperglycemia, without long-term current use of insulin E11.65 ; End stage renal disease N18.6 and Shortness of breath R06.02 [place] [address] [place] [address] 76255- 3540 Mar, 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 [place] [address] [place] [address] 48337- 2789 Mar, [place] [id number] [place] [address] 56337- 7382 Mar, [facility] [address] [facility] [id number] [place] [address] 5279 Mar, [facility] [address] [facility] [id number] [address] Feb, Via [facility] [address] [place] [id number] Feb, Encounter for examination for admission to prison Z02.2 ; Type 2 diabetes mellitus with hyperglycemia, without long-term current use of insulin E11.65 ; 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 ; Osteopenia of multiple sites M85.89 ; End stage renal disease N18.6 ; Dialysis patient Z99.2 and Rheumatoid arthritis, involving unspecified site, unspecified rheumatoid factor presence M06.9 [facility] [address] [facility] [id number] [place] [address] 47[address] Feb, [facility] [address] [place] [address] May, Dental examination Z01.20 [facility] [address] [place] [address] May, [facility] [address] [place] [address] May, Dental examination Z01.20 [facility] [address] [place] [address] May, [facility] [address] [place] [address] Apr, Dental examination Z01.20 [facility] [address] [place] [address] Dec, Dental examination Z01.20 [facility] [address] [place] [address] Oct, Dental examination Z01.20 [facility] [address] [place] [address] Oct, Dental examination Z01.20 [facility] [address] [place] [address] Sep, Dental examination Z01.20 [facility] [address] [place] [address] Aug, Dental examination Z01.20 [facility] [address] [place] [address] Jul, Dental examination Z01.20 [facility] [address] [place] [address] Jul, Dental examination Z01.20 [facility] [address] [place] [address] Jun, Dental examination Z01.20 [facility] [address], [place] [address] Dec, [facility] [id number] [place] [address] 11361- 5116 Dec, [facility] [address], [place] [address] 46[address] Mar, [facility] [id number] [place] [address] 61045- 3891 Mar, [facility] [id number], [place] [address] 7[address] Mar, [facility] [address], [place] [address] 9[address] Feb, [facility] [address], [place] [address] January, [facility] [address], [place] [address] January, IMMUNIZATIONS No Known Immunizations SOCIAL HISTORY Never Assessed REASON FOR VISIT Home Health PLAN OF CARE VITAL SIGNS MEDICATIONS Medication Instructions Dosage Frequency Start Date End Date Duration Status Levemir FlexTouch 100 UNIT/ML Subcutaneous at hs 15u Apr, Active RESULTS No Results PROCEDURES No Known procedures INSTRUCTIONS MEDICATIONS ADMINISTERED No Known Medications MEDICAL (GENERAL) HISTORY Type Description Date Medical History Mild High Blood Pressure Medical History Diabetes Type 2 Medical History Arthritis Surgical History umbilical hernia Hospitalization History Renal failure 02/2018 Hospitalization History Chest pain-[facility] 03/31/18
--- OUTSIDE RECORDS SUMMARY | 2018-07-20 09:59 | XMS REPORT ---
Author Author ZECHARIAH ADAMS [facility] Address [address] [place] [address] Care Team Providers Care General Surgery Physician Assistant Name Role Phone ZECHARIAH ADAMS Unavailable PROBLEMS Type Condition ICD9-CM Code LLR69-BA Code Onset Dates Condition Status SNOMED Code Problem Dialysis patient Z99.2 Active 754585848 Problem 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 Active 495582473 Problem Rheumatoid arthritis, involving unspecified site, unspecified rheumatoid factor presence M06.9 Active 00209888 Problem Dental examination V72.2 Active 11161185 Problem Type 2 diabetes mellitus with hyperglycemia, without long-term current use of insulin E11.65 Active 11185341 Problem Essential hypertension I10 Active 90017920 Problem Gait disturbance R26.9 Active 82345357 Problem 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 Active 36509266 Problem End stage renal disease N18.6 Active 32989362 Problem Primary insomnia F51.01 Active 9554591 Problem Benign prostatic hyperplasia with lower urinary tract symptoms N40.1 Active [id number] ALLERGIES No Information ENCOUNTERS Encounter Location Date Diagnosis [place] [address] [place] [address] 49886- 8453 May, [facility] [address] [place] [address] 73501- 3341 Apr, [facility] [id number] [place] [address] 78875- 6607 Apr, [facility] [id number] [place] [address] 00074- 8932 Apr, Type 2 diabetes mellitus with hyperglycemia, without long- term current use of insulin E11.65 [facility] [id number], [place] [address] 9908 Apr, [facility] [address] [place] [address] [place] [address] 9321 Apr, [place] [id number] [place] [address] 69255- 8978 Apr, Via [facility] [employer] [address] [place] [id number] Apr, Type 2 diabetes mellitus with hyperglycemia, [...] hyperplasia with lower urinary tract symptoms N40.1 [place] [id number] [place] [address] 09973- 1149 Apr, [place] [id number] [place] [address] 42044- 3705 Mar, [place] [id number] [place] [address] 12589- 5596 Mar, Via [employer] [address] [place] [id number] Mar, Type 2 diabetes mellitus with hyperglycemia, without long-term current use of insulin E11.65 ; End stage renal disease N18.6 and Shortness of breath R06.02 [place] [id number] [place] [address] 03194- 9195 Mar, 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 [address] [place] [id number] Feb, Encounter for examination for admission to prison Z02.2 ; Type 2 diabetes mellitus with hyperglycemia, without long-term current use of insulin E11.65 ; 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 ; Osteopenia of multiple sites M85.89 ; End stage renal disease N18.6 ; Dialysis patient Z99.2 and Rheumatoid arthritis, involving unspecified site, unspecified rheumatoid factor presence M06.9 [facility] [address] [facility] [id number] [address] Feb, [address] [address] May, Dental examination Z01.[address] [address] May, [address] [address] 08 May, 2016 Dental examination Z01.[address] [address] May, [address] [address] Apr, Dental examination Z01.[address] [address] Dec, Dental examination Z01.[address] [address] Oct, Dental examination Z01.[address] [address] Oct, Dental examination Z01.[address] [address] Sep, Dental examination Z01.[address] [address] Aug, Dental examination Z01.[address] [address] Jul, Dental examination Z01.[address] [address] Jul, Dental examination Z01.20 [facility] [address] [place] [address] Jun, Dental examination Z01.20 [facility] [address] [id number], [place] [address]- 1298 14 Dec, 2014 [facility] [id number], [place] [address]- 6685 Dec, [facility] [address] [address] 8025 Mar, [facility] [address], [place] [address]- 2652 Mar, [facility] [address], [place] [address]- 8605 Mar, [facility] [address], [place] [address]- 7134 Feb, [facility] [id number], [place] [address]- 9917 January, [facility] [address] [place] [id number] [address] January, IMMUNIZATIONS No Known Immunizations SOCIAL HISTORY Never Assessed REASON FOR VISIT New Admission PLAN OF CARE VITAL SIGNS MEDICATIONS Medication Instructions Dosage Frequency Start Date End Date Duration Status Melatonin 3 MG Orally Once a day 1 tablet at bedtime as needed with food 24h Feb, 30 day(s) Active Fleet Enema 7-19 GM/118ML as directed Feb, Active Colace 100 MG Orally Once a day 1 capsule as needed 24h Feb, Mar, 30 day(s) Active RESULTS No Results PROCEDURES No Known procedures INSTRUCTIONS MEDICATIONS ADMINISTERED No Known Medications MEDICAL (GENERAL) HISTORY Type Description Date Medical History Mild High Blood Pressure Medical History Diabetes Type 2 Medical History Arthritis Surgical History umbilical hernia Hospitalization History Renal failure 02/2018 Hospitalization History Chest pain-[facility] 03/31/18
--- OUTSIDE RECORDS SUMMARY | 2018-07-20 09:59 | XMS REPORT ---
Author Author IGNACIA TIMMONS Organization [facility] Address [address] [place] [address] Care Team Providers Care Sider Mechanic Name Role Phone IGNACIA TIMMONS Unavailable PROBLEMS Type Condition ICD9-CM Code MVR02-EE Code Onset Dates Condition Status SNOMED Code Problem Dialysis patient Z99.2 Active 866207928 Problem 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 Active 986871665 Problem Rheumatoid arthritis, involving unspecified site, unspecified rheumatoid factor presence M06.9 Active 83451024 Problem Dental examination V72.2 Active 35412985 Problem Type 2 diabetes mellitus with hyperglycemia, without long-term current use of insulin E11.65 Active 67163435 Problem Essential hypertension I10 Active 88901865 Problem Gait disturbance R26.9 Active 16316940 Problem 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 Active 22663081 Problem End stage renal disease N18.6 Active 60811292 Problem Primary insomnia F51.01 Active 0871601 Problem Benign prostatic hyperplasia with lower urinary tract symptoms N40.1 Active 21725135004138 ALLERGIES No Information ENCOUNTERS Encounter Location Date Diagnosis [place] [id number] [place] [address] 82169- 6281 May, Type 2 diabetes mellitus with hyperglycemia, without long- term current use of insulin E11.65 [facility] [address] [place] [address] 68664- 9664 Apr, End stage renal disease N18.6 [facility] [id number] [place] [address] 83653- 1749 Apr, [place] [id number] [place] [address] 51140- 2825 Apr, [place] [address] [place] [address] [id number] [place] [address] 65200- 7783 Apr, Type 2 diabetes mellitus with hyperglycemia, without long- term current use of insulin E11.65 [place] [address], [place] [address]- 8764 Apr, [place] [address] [place] [address] 32587- 0185 Apr, [place] [address] [place] [address] 24296- 5975 Apr, [facility] [employer] [address] [place] [id number] Apr, Type 2 diabetes mellitus with hyperglycemia, [...] hyperplasia with lower urinary tract symptoms N40.1 [place] [address] [place] [address] 56695- 2883 Apr, [place] [address] [address] [id number] [place] [address] 67010- 1764 Mar, [place] [address] [place] [address] 87121- 4756 Mar, [facility] [employer] [address] [place] [id number] Mar, Type 2 diabetes mellitus with hyperglycemia, without long-term current use of insulin E11.65 ; End stage renal disease N18.6 and Shortness of breath R06.02 [place] [address] [place] [address] 81096- 1243 Mar, 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 [place] [address] [place] [address] 54032- 6545 Mar, [place] [address] [place] [id number] [place] [address] 00193- 5816 Mar, [facility] [address] [facility] [id number] [place] [address]- 5594 Mar, [facility] [address] [facility] [id number] [address] 5065 Feb, [facility] [address] [place] [id number] Feb, Encounter for examination for admission to senior living Z02.2 ; Type 2 diabetes mellitus with hyperglycemia, without long-term current use of insulin E11.65 ; 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 ; Osteopenia of multiple sites M85.89 ; End stage renal disease N18.6 ; Dialysis patient Z99.2 and Rheumatoid arthritis, involving unspecified site, unspecified rheumatoid factor presence M06.9 [facility] [address] [facility] [id number] [place] [address]- 3052 Feb, [facility] [address] [place] [address] May, Dental examination Z01.20 [facility] [address] [place] [address] May, [facility] [address] [place] [address] May, Dental examination Z01.20 [facility] [address] [place] [address] May, [facility] [address] [place] [address] Apr, Dental examination Z01.20 [facility] [address] [place] [address] Dec, Dental examination Z01.20 [facility] [address] [place] [address] Oct, Dental examination Z01.20 [facility] [address] [place] [address] Oct, Dental examination Z01.20 [facility] [address] [place] [address] Sep, Dental examination Z01.20 [facility] [address] [place] [address] Aug, Dental examination Z01.20 [facility] [address] [place] [address] Jul, Dental examination Z01.20 [facility] [address] [place] [address] Jul, Dental examination Z01.20 [facility] [address] [place] [address] Jun, Dental examination Z01.20 [facility] [address] [address] Dec, [facility] [id number] [place] [address] 343404- 6446 Dec, [facility] [address], [place] [address]- 6437 Mar, [facility] [id number] [place] [address] 13360- 7790 Mar, [facility] [address] Mar, [facility] [address], [place] [address]- 2386 Feb, [facility] [address] [address] January, [facility] [address], [place] [address]- 8538 January, IMMUNIZATIONS No Known Immunizations SOCIAL HISTORY [...]
--- OUTSIDE RECORDS SUMMARY | 2018-07-20 10:00 | XMS REPORT ---
Author Author IGNACIA TIMMONS Organization [facility] Address [address] [place] [address] Care Team Providers Care Buhr Dresser Name Role Phone IGNACIA TIMMONS Unavailable PROBLEMS Type Condition ICD9-CM Code BGY60-HN Code Onset Dates Condition Status SNOMED Code Problem Dialysis patient Z99.2 Active 715743960 Problem 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 Active 405842655 Problem Rheumatoid arthritis, involving unspecified site, unspecified rheumatoid factor presence M06.9 Active 17795125 Problem Dental examination V72.2 Active 68948617 Problem Type 2 diabetes mellitus with hyperglycemia, without long-term current use of insulin E11.65 Active 34842577 Problem Essential hypertension I10 Active 65446031 Problem Gait disturbance R26.9 Active 99167799 Problem 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 Active 84697599 Problem End stage renal disease N18.6 Active 09735163 Problem Primary insomnia F51.01 Active 4885251 Problem Benign prostatic hyperplasia with lower urinary tract symptoms N40.1 Active [id number] ALLERGIES No Information ENCOUNTERS Encounter Location Date Diagnosis [place] [id number] [place] [address]29- 5863 May, Type 2 diabetes mellitus with hyperglycemia, without long- term current use of insulin E11.65 [facility] [id number] [place] [address] 14654- 8879 Apr, End stage renal disease N18.6 [facility] [id number] [place] [address] 36185- 3283 Apr, [place] [id number] [place] [address] 49093- 8948 Apr, [place] [id number] [place] [address] 83232- 7473 Apr, Type 2 diabetes mellitus with hyperglycemia, without long- term current use of insulin E11.65 [place] [address] [address] Apr, [place] [id number] [place] [address] 12582- 6984 Apr, [place] [id number] [place] [address] 04015[address] 1259 Apr, [facility] [address] [place] [id number] Apr, Type 2 diabetes mellitus with hyperglycemia, [...] hyperplasia with lower urinary tract symptoms N40.1 [place] [id number] [place] [address] 68816- 4844 Apr, [place] [id number] [place] [address] 66691- 7040 Mar, [place] [id number] [place] [address] 00441[address] 8216 Mar, [facility] [address] [place] [id number] Mar, Type 2 diabetes mellitus with hyperglycemia, without long-term current use of insulin E11.65 ; End stage renal disease N18.6 and Shortness of breath R06.02 [place] [address] [place] [address] 92611- 7765 Mar, 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 [place] [id number] [place] [address] 51675- 3613 Mar, [place] [id number] [place] [address] 45429- 9652 Mar, [facility] [address] [facility] [id number] [place] [address] Mar, [facility] [address] [facility] [id number] [address] Feb, [facility] [address] [place] [id number] Feb, Encounter for examination for admission to [facility] Z02.2 ; Type 2 diabetes mellitus with hyperglycemia, without long-term current use of insulin E11.65 ; 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 ; Osteopenia of multiple sites M85.89 ; End stage renal disease N18.6 ; Dialysis patient Z99.2 and Rheumatoid arthritis, involving unspecified site, unspecified rheumatoid factor presence M06.9 [facility] [address] [facility] [id number] [place] [address] Feb, [facility] [address] [place] [address] May, Dental examination Z01.20 [facility] [address] [place] [address] May, [facility] [address] [place] [address] May, Dental examination Z01.20 [facility] [address] [place] [address] May, [facility] [address] [place] [address] Apr, Dental examination Z01.20 [facility] [address] [place] [address] Dec, Dental examination Z01.20 [facility] [address] [place] [address] Oct, Dental examination Z01.20 [facility] [address] [place] [address] Oct, Dental examination Z01.20 [facility] [address] [place] [address] Sep, Dental examination Z01.20 [facility] [address] [place] [address] Aug, Dental examination Z01.20 [facility] [address] [place] [address] Jul, [facility] examination Z01.20 [facility] [address] [place] [address] Jul, Dental examination Z01.20 [facility] [address] [place] [address] Jun, Dental examination Z01.20 [facility] [address] [address] Dec, [facility] [id number] [place] [address]391- 2739 Dec, [facility] [address] [address] Mar, [facility] [id number] [place] [address] 57572- 6744 Mar, [facility] [address] [address] Mar, [facility] [address] [address] Feb, [facility] [address] [address] January, [facility] [address] [address] January, IMMUNIZATIONS No Known Immunizations SOCIAL HISTORY [...]
--- OUTSIDE RECORDS SUMMARY | 2018-07-20 10:00 | XMS REPORT ---
Author Author IGNACIA TIMMONS Organization [facility] Address [address] [place] [address] Care Team Providers Care Rn Recovery Name Role Phone IGNACIA TIMMONS Unavailable PROBLEMS Type Condition ICD9-CM Code BZO80-ZF Code Onset Dates Condition Status SNOMED Code Problem Dialysis patient Z99.2 Active 470063034 Problem 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 Active 493620008 Problem Rheumatoid arthritis, involving unspecified site, unspecified rheumatoid factor presence M06.9 Active 28486533 Problem Dental examination V72.2 Active 99325761 Problem Type 2 diabetes mellitus with hyperglycemia, without long-term current use of insulin E11.65 Active 41092959 Problem Essential hypertension I10 Active 60819386 Problem Gait disturbance R26.9 Active 20332012 Problem 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 Active 01096463 Problem End stage renal disease N18.6 Active 20652919 Problem Primary insomnia F51.01 Active 3522212 Problem Benign prostatic hyperplasia with lower urinary tract symptoms N40.1 Active [id number] ALLERGIES No Information ENCOUNTERS Encounter Location Date Diagnosis [place] [id number] [place] [address]54[address] May, Type 2 diabetes mellitus with hyperglycemia, without long- term current use of insulin E11.65 [facility] [address] [place] [address]01- [address] Apr, End stage renal disease N18.6 [facility] [id number] [place] [address] 41230- 3223 Apr, [place] [id number] [place] [address] 21004- 1708 Apr, [place] [id number] [place] [address] 48139- 2483 Apr, Type 2 diabetes mellitus with hyperglycemia, without long- term current use of insulin E11.65 [place] [address], [place] [address] Apr, [place] [address] [place] [address] 34326- 6098 Apr, [place] [address] [place] [address] 59185- 3841 Apr, [facility] [employer] [address] [place] [id number] Apr, Type 2 diabetes mellitus with hyperglycemia, [...] hyperplasia with lower urinary tract symptoms N40.1 [place] [address] [place] [address] 20283- 3529 Apr, [place] [id number] [place] [address] 88872- 0398 Mar, [place] [address] [place] [address] 47694- 8261 Mar, [facility] [employer] [address] [place] [id number] Mar, Type 2 diabetes mellitus with hyperglycemia, without long-term current use of insulin E11.65 ; End stage renal disease N18.6 and Shortness of breath R06.02 [place] [address] [place] [address] 71929- 6733 Mar, 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 [place] [address] [place] [address] 67420- 6813 Mar, [place] [address] [id number] [place] [address] 01867- 5449 Mar, [facility] [address] [facility] [id number] [place] [address] 4747 Mar, [facility] [address] [facility] [id number] [address] Feb, [facility] [address] [place] [id number] Feb, Encounter for examination for admission to [facility] Z02.2 ; Type 2 diabetes mellitus with hyperglycemia, without long-term current use of insulin E11.65 ; 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 ; Osteopenia of multiple sites M85.89 ; End stage renal disease N18.6 ; Dialysis patient Z99.2 and Rheumatoid arthritis, involving unspecified site, unspecified rheumatoid factor presence M06.9 [facility] [address] [facility] [id number] [place] [address]- [address] Feb, [facility] [address] [place] [address] May, Dental examination Z01.20 [facility] [address] [place] [address] May, [facility] [address] [place] [address] May, Dental examination Z01.20 [facility] [address] [place] [address] May, [facility] [address] [place] [address] Apr, Dental examination Z01.20 [facility] [address] [place] [address] Dec, Dental examination Z01.20 [facility] [address] [place] [address] Oct, Dental examination Z01.20 [facility] [address] [place] [address] Oct, Dental examination Z01.20 [facility] [address] [place] [address] Sep, Dental examination Z01.20 [facility] [address] [place] [address] Aug, Dental examination Z01.20 [facility] [address] [place] [address] Jul, Dental examination Z01.20 [facility] [address] [place] [address] Jul, [facility] Z01.20 [facility] [address] [place] [address] Jun, Dental examination Z01.20 [facility] [address] [address] Dec, [facility] [address] [id number] [place] [address] 540866- 7072 Dec, [facility] [address] [address] 25[address] Mar, [facility] [id number] [place] [address] 83911- 7534 Mar, [facility] [address], [place] [address] 77[address] Mar, [facility] [address], [place] [address]- 7[address] Feb, [facility] [address], [place] [address]- 0860 January, [facility] [address], [place] [address] January, IMMUNIZATIONS No Known Immunizations SOCIAL HISTORY Never Assessed REASON FOR VISIT Order Request PLAN OF CARE VITAL SIGNS MEDICATIONS No Known Medications RESULTS No Results PROCEDURES No Known procedures INSTRUCTIONS MEDICATIONS ADMINISTERED No Known Medications MEDICAL (GENERAL) HISTORY Type Description Date Medical History Mild High Blood Pressure Medical History Diabetes Type 2 Medical History Arthritis Surgical History umbilical hernia Hospitalization History Renal failure 02/2018 Hospitalization History Chest pain-[facility] 03/31/18
[2018-07-20 10:01] LABS: BASOPHILS % (AUTO) 0 % (0-10); EOSINOPHILS # (AUTO) 0.1 10^3/uL (0.0-0.3); EOSINOPHILS % (AUTO) 0 % (0-10); HEMATOCRIT 40 % (40-54); HEMOGLOBIN 12.8 G/DL (13.3-17.7); LYMPHOCYTES # (AUTO) 1.3 X 10^3 (1.0-4.0); LYMPHOCYTES % (AUTO) 7 % (12-44); MEAN CORPUSCULAR HEMOGLOBIN 29 PG (25-34); MEAN CORPUSCULAR HGB CONC 32 G/DL (32-36); MEAN CORPUSCULAR VOLUME 91 FL (80-99); MEAN PLATELET VOLUME 9.8 FL (7.4-10.4); MONOCYTES % (AUTO) 6 % (0-12); NEUTROPHILS # (AUTO) 14.5 X 10^3 (1.8-7.8); NEUTROPHILS % (AUTO) 86 % (42-75); PLATELET COUNT 194 10^3/uL (130-400); RED BLOOD COUNT 4.41 10^6/uL (4.35-5.85); RED CELL DISTRIBUTION WIDTH 14.4 % (10.0-14.5); WHITE BLOOD COUNT 16.8 10^3/uL (4.3-11.0)
--- OUTSIDE RECORDS SUMMARY | 2018-07-20 10:01 | XMS REPORT | Clinical Summary ---
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 Simon Castillo MD Long-term [...] 02/27 Bronchitis, acute ICD-466.0 Kerry Castillo MD SINUSITIS, ACUTE ICD-461.9 Kerry Castillo MD SCIATICA ICD-724.3 Kerry Castillo MD 2012 Steroid use, assisted ICD-V58.65 Kerry Castillo MD Hand pain, bilateral [...] MD Pharyngitis ICD-462 Inactive Simon Castillo MD Syncope and collapse ICD-780.2 Inactive Simon Castillo MD abrasion, face, infected ICD-910.1 Inactive Simon Castillo MD Other injury of unspecified body region, initial encounter ICD-879.8 Inactive Simon Castillo MD Lesion of skin of face ICD-709.9 Inactive Simon Castillo MD Sinusitis, acute ICD-461.9 Inactive Simon Castillo MD Dyspnea ICD-786.09 Inactive Simon Castillo MD 2016 Medication List Medication Instructions Start Date Stop Date Generic Name NDC Status Provider Patient Instruction FUROSEMIDE 20 MG ORAL TABLET 1 po qd FUROSEMIDE 39991927296 Active Simon Castillo MD Active BACTRIM DS 800-160 MG ORAL TABLET 1 po BID x 7 days SULFAMETHOXAZOLE-TRIMETHOPRIM 31353657100 Active Simon Castillo MD Active AZITHROMYCIN 250 MG ORAL TABLET 2 po qd x 1, then 1 po qd x 4 AZITHROMYCIN 33693070021 No Longer Active Simon Castillo MD Active PROMETHAZINE-CODEINE 6.25-10 MG/5ML ORAL SYRUP 5ml po qHS PRN Cough PROMETHAZINE-CODEINE 67328427980 No Longer Active Simon Castillo MD Active SINGULAIR 10 MG ORAL TABLET 1 po qd PRN Asthma/Allergies MONTELUKAST SODIUM 33217755893 Active Simon Castillo MD Active PREDNISONE 20 MG ORAL TABLET 2 po qd x 5 days PREDNISONE 45462976543 No Longer Active Simon Castillo MD Active VIAGRA 100 MG ORAL TABLET 0.5 to 1 po qd PRN Erectile dysfunction SILDENAFIL CITRATE 50349180302 Active Simon Castillo MD Active LUTEIN-ZEAXANTHIN 6-1 MG ORAL TABLET 2 po qd LUTEIN- ZEAXANTHIN 63912557448 Active Simon Castillo MD Active BILBERRY CAPSULE 1 po qd BILBERRY (VACCINIUM MYRTILLUS) CAPS 02460790041 Active Simon Castillo MD Active TRAMADOL HCL 50 MG ORAL TABLET 1-2 tablets every 6 hours as needed for pain TRAMADOL HCL 00458635803 No Longer Active Simon Castillo MD Active HYDROCODONE-ACETAMINOPHEN 5-325 MG ORAL TABLET 1 tab by mouth 8 hours as needed for pain HYDROCODONE-ACETAMINOPHEN 81068591876 No Longer Active Simon Castillo MD Active BUMETANIDE 0.5 MG ORAL TABLET 1 po qd BUMETANIDE 01402399170 Active Simon Castillo MD Active AUGMENTIN 875-125 MG ORAL TABLET 1 po BID x 10 days AMOXICILLIN-POT CLAVULANATE 70752181336 No Longer Active Simon Castillo MD Active PIOGLITAZONE HCL 30 MG ORAL TABLET 1 po qd PIOGLITAZONE HCL 52478134403 Active Simon Castillo MD Active GLIMEPIRIDE 4 MG ORAL TABLET 1 po BID GLIMEPIRIDE 47650749627 Active Simon Castillo MD Active ASPIRIN EC 81 MG ORAL TABLET DELAYED RELEASE 1 po qd ASPIRIN 30028248719 Active Simon Castillo MD Active CLOTRIMAZOLE 1 % EXTERNAL CREAM Apply to affected area of feet twice daily PRN Rash CLOTRIMAZOLE 06771446263 No Longer Active Simon Castillo MD Active PREDNISONE 5 MG ORAL TABLET 1 po BID PREDNISONE 30878843635 Active Dolly MCDERMOTT Active FISH OIL 1000 MG ORAL CAPSULE DELAYED RELEASE 1 po BID OMEGA- 3 FATTY ACIDS 05121727426 Active Simon Castillo MD Active LISINOPRIL 10 MG ORAL TABLET 1 p qd LISINOPRIL 72493536137 Active Simon Castillo MD Active CLARITIN 10 MG ORAL TABLET 1 tablet by mouth daily as needed for allergies LORATADINE 82072254028 No Longer Active Simon Castillo MD Active TRIAMCINOLONE ACETONIDE 0.1 % EXTERNAL OINTMENT Apply to affected areas TID for up to 2 weeks TRIAMCINOLONE ACETONIDE 63015974815 No Longer Active Simon Castillo MD Active LASIX 20 MG ORAL TABLET 1 tablet by mouth daily x 2 days FUROSEMIDE 96690227284 No Longer Active Simon Castillo MD Active SULFASALAZINE 500 MG ORAL TABLET DELAYED RELEASE 2 tabs BID 02/26 SULFASALAZINE 97393488128 No Longer Active Neto Oshea DO Active PREDNISONE 20 MG ORAL TABLET 2 tabs daily for 3 days, 1 tab daily for 3 days, 1/2 tab daily for 2 days PREDNISONE 94846416596 No Longer Active Jillina Fratico HEMPHILL Active PREDNISONE 20 MG ORAL TABLET 1 tablet daily for airway inflammation PREDNISONE 66190152407 No Longer Active Jillina Frazell GILL BOX 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 AZITHROMYCIN 250 MG ORAL TABLET 2 po qd x 1 day, then 1 po qd x 4 days 01/28 AZITHROMYCIN 49158160140 No Longer Active Jillina Fraamayal GILL BOX 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 TRAMADOL HCL 50 MG ORAL TABLET 1 po q6hr PRN Pain TRAMADOL HCL 27328341158 No Longer Active Simon Castillo MD Active PREDNISONE 5 MG ORAL TABLET 1 po qod PREDNISONE 19936984316 No Longer Active Simon Castillo MD Active SYMBICORT 160-4.5 MCG/ACT INHALATION AEROSOL 2 puff BID BUDESONIDE-FORMOTEROL FUMARATE 35875082388 No Longer Active Simon Castillo MD Active FLONASE 50 MCG/ACT NASAL SUSPENSION 2 puffs in each nostril daily FLUTICASONE PROPIONATE 02284961518 No Longer Active Simon Castillo MD Active PREDNISONE 20 MG ORAL TABLET 2 tabs daily for 5 days, then 1 daily for 5 days PREDNISONE 50277899321 No Longer Active Simon Castillo MD Active PREDNISONE 20 MG ORAL TABLET 2 tabs daily for 5 days, then 1 daily for 5 days , then 0.5 for 4 days PREDNISONE 84709238586 No Longer Active Simon Castillo MD Active PREDNISONE 20 MG ORAL TABLET 2 tabs daily for 3 days, 1 tab daily for 3 days, 1/2 tab daily for 2 days PREDNISONE 96799196960 No Longer Active Simon Castillo MD Active AZITHROMYCIN 250 MG ORAL TABLET 2 po qd x 1 day, then 1 po qd x 4 days 03/16 AZITHROMYCIN 56933002241 No Longer Active Simon Castillo MD Active CARVEDILOL 6.25 MG ORAL TABLET 1 po BID CARVEDILOL 84816309113 Active Simon Castillo MD Active LISINOPRIL-HYDROCHLOROTHIAZIDE 20-12.5 MG ORAL TABLET 1/2 tab by mouth daily LISINOPRIL-HYDROCHLOROTHIAZIDE 03884144684 No Longer Active Simon Castillo MD Active PREDNISONE 5 MG ORAL TABLET Take one po qod PREDNISONE 59976802392 No Longer Active Simon Castillo MD Active GLYBURIDE 5 MG ORAL TABLET Take one by mouth daily GLYBURIDE 20773678146 No Longer Active Simon Castillo MD Active LEVAQUIN 750 MG ORAL TABLET 1 po qod x 5 doses LEVOFLOXACIN 20288379984 No Longer Active Simon Castillo MD Active CETIRIZINE HCL 10 MG ORAL TABLET 1 po qd as needed for allergies CETIRIZINE HCL 57071101884 No Longer Active Simon Castillo MD Active ATENOLOL 50 MG ORAL TABLET Take one by mouth daily ATENOLOL 70355068936 No Longer Active Simon Castillo MD Active FLONASE 50 MCG/ACT NASAL SUSPENSION 2 puffs in each nostril daily FLUTICASONE PROPIONATE 95805360596 No Longer Active Simon Castillo MD Active GLYBURIDE 5 MG ORAL TABLET Take one by mouth daily GLYBURIDE 93158474342 No Longer Active Simon Castillo MD Active SYMBICORT 80-4.5 MCG/ACT INHALATION AEROSOL 2 puffs twice a day BUDESONIDE-FORMOTEROL FUMARATE 22540763141 No Longer Active Simon Castillo MD Active PREDNISONE 20 MG ORAL TABLET 2 tabs daily for 4 days, 1 tab daily for 4 days, 1/2 tab daily for 4 days PREDNISONE 94802831188 No Longer Active Simon Castillo MD Active AMOXICILLIN 500 MG ORAL CAPSULE 2 po BID x 10 days AMOXICILLIN 81604029227 No Longer Active Simon Castillo MD Active METFORMIN HCL 1000 MG ORAL TABLET 1 by mounth twice a day METFORMIN HCL 93560875897 No Longer Active Simon Castillo MD Active IBUPROFEN 800 MG ORAL TABLET Take 1 tab every 6 hrs prn IBUPROFEN 87800660023 No Longer Active Simon Castillo MD Active GLYBURIDE 2.5 MG ORAL TABLET Take one by mouth daily GLYBURIDE 50955050639 No Longer Active Simon Castillo MD Active LANCETS 2 qd LANCETS 87035813911 Active Pamela Conde Active ACACIA CONTOUR TEST IN VITRO STRIP Use with testing twice daily GLUCOSE BLOOD 83776621428 Active Simon Castillo MD Active GLYBURIDE 2.5 MG ORAL TABLET Take one by mouth daily GLYBURIDE 2.5 MG ORAL TABLET 281496 GLYBURIDE Inactive PREDNISONE 20 MG ORAL TABLET 2 tabs daily for 4 days, 1 tab daily for 4 days, 1/2 tab daily for 4 days PREDNISONE 20 MG ORAL TABLET 916129 PREDNISONE Inactive SYMBICORT 80-4.5 MCG/ACT INHALATION AEROSOL 2 puffs twice a day SYMBICORT 80-4.5 MCG/ACT INHALATION AEROSOL BUDESONIDE- FORMOTEROL FUMARATE Inactive FLONASE 50 MCG/ACT NASAL SUSPENSION 2 puffs in each nostril daily FLONASE 50 MCG/ACT NASAL SUSPENSION 1997001 FLUTICASONE PROPIONATE Inactive ATENOLOL 50 MG ORAL TABLET Take one by mouth daily ATENOLOL 50 MG ORAL TABLET 891371 ATENOLOL Inactive CETIRIZINE HCL 10 MG ORAL TABLET 1 po qd as needed for allergies CETIRIZINE HCL 10 MG ORAL TABLET 8100091 CETIRIZINE HCL Inactive LEVAQUIN 750 MG ORAL TABLET 1 po qod x 5 doses LEVAQUIN 750 MG ORAL TABLET 071132 LEVOFLOXACIN Inactive GLYBURIDE 5 MG ORAL TABLET Take one by mouth daily GLYBURIDE 5 MG ORAL TABLET 498562 GLYBURIDE Inactive PREDNISONE 5 MG ORAL TABLET Take one po qod PREDNISONE 5 MG ORAL TABLET 366501 PREDNISONE Inactive PREDNISONE 20 MG ORAL TABLET 2 tabs daily for 5 days, then 1 daily for 5 days PREDNISONE 20 MG ORAL TABLET 889033 PREDNISONE Inactive FLONASE 50 MCG/ACT NASAL SUSPENSION 2 puffs in each nostril daily FLONASE 50 MCG/ACT NASAL SUSPENSION 8897083 FLUTICASONE PROPIONATE Inactive SYMBICORT 160-4.5 MCG/ACT INHALATION AEROSOL 2 puff BID SYMBICORT 160-4.5 MCG/ACT INHALATION AEROSOL BUDESONIDE-FORMOTEROL FUMARATE Inactive PREDNISONE 5 MG ORAL TABLET 1 po qod PREDNISONE 5 MG ORAL TABLET 432868 PREDNISONE Inactive PREDNISONE 20 MG ORAL TABLET 1 tablet daily for airway inflammation PREDNISONE 20 MG ORAL TABLET 351426 PREDNISONE Inactive SULFASALAZINE 500 MG ORAL TABLET DELAYED RELEASE 2 tabs BID 02/26 SULFASALAZINE 500 MG ORAL TABLET DELAYED RELEASE 355556 SULFASALAZINE Inactive LASIX 20 MG ORAL TABLET 1 tablet by mouth daily x 2 days LASIX 20 MG ORAL TABLET 742582 FUROSEMIDE Inactive CLARITIN 10 MG ORAL TABLET 1 tablet by mouth daily as needed for allergies CLARITIN 10 MG ORAL TABLET 609831 LORATADINE Inactive CLOTRIMAZOLE 1 % EXTERNAL CREAM Apply to affected area of feet twice daily PRN Rash CLOTRIMAZOLE 1 % EXTERNAL CREAM 944405 CLOTRIMAZOLE Inactive HYDROCODONE-ACETAMINOPHEN 5-325 MG ORAL TABLET 1 tab by mouth 8 hours as needed for pain HYDROCODONE-ACETAMINOPHEN 5-325 MG ORAL TABLET 770142 HYDROCODONE-ACETAMINOPHEN Inactive TRAMADOL HCL 50 MG ORAL TABLET 1-2 tablets every 6 hours as needed for pain TRAMADOL HCL 50 MG ORAL TABLET 143965 TRAMADOL HCL Inactive PROMETHAZINE-CODEINE 6.25-10 MG/5ML ORAL SYRUP 5ml po qHS PRN Cough PROMETHAZINE-CODEINE 6.25-10 MG/5ML ORAL SYRUP 499826 PROMETHAZINE-CODEINE Inactive AZITHROMYCIN 250 MG ORAL TABLET 2 po qd x 1, then 1 po qd x 4 AZITHROMYCIN 250 MG ORAL TABLET 873258 AZITHROMYCIN Inactive AMOXICILLIN 500 MG ORAL CAPSULE 2 po BID x 10 days AMOXICILLIN 500 MG ORAL CAPSULE 939245 AMOXICILLIN Inactive GLYBURIDE 5 MG ORAL TABLET Take one by mouth daily GLYBURIDE 5 MG ORAL TABLET 340212 GLYBURIDE Inactive AZITHROMYCIN 250 MG ORAL TABLET 2 po qd x 1 day, then 1 po qd x 4 days 03/16 AZITHROMYCIN 250 MG ORAL TABLET 271445 AZITHROMYCIN Inactive PREDNISONE 20 MG ORAL TABLET 2 tabs daily for 3 days, 1 tab daily for 3 days, 1/2 tab daily for 2 days PREDNISONE 20 MG ORAL TABLET 503270 PREDNISONE Inactive PREDNISONE 20 MG ORAL TABLET 2 tabs daily for 5 days, then 1 daily for 5 days , then 0.5 for 4 days PREDNISONE 20 MG ORAL TABLET 710204 PREDNISONE Inactive AZITHROMYCIN 250 MG ORAL TABLET 2 po qd x 1 day, then 1 po qd x 4 days 01/28 AZITHROMYCIN 250 MG ORAL TABLET 902154 AZITHROMYCIN Inactive PREDNISONE 20 MG ORAL TABLET 2 tabs daily for 3 days, 1 tab daily for 3 days, 1/2 tab daily for 2 days PREDNISONE 20 MG ORAL TABLET 043506 PREDNISONE Inactive TRIAMCINOLONE ACETONIDE 0.1 % EXTERNAL OINTMENT Apply to affected areas TID for up to 2 weeks TRIAMCINOLONE ACETONIDE 0.1 % EXTERNAL OINTMENT 4803332 TRIAMCINOLONE ACETONIDE Inactive AUGMENTIN 875-125 MG ORAL TABLET 1 po BID x 10 days AUGMENTIN 875-125 MG ORAL TABLET 199922 AMOXICILLIN-POT CLAVULANATE Inactive PREDNISONE 20 MG ORAL TABLET 2 po qd x 5 days PREDNISONE 20 MG ORAL TABLET 963411 PREDNISONE Inactive Immunizations Vaccine Administration Date Value [...] temperature weight E&M 212.0 [lb_av] Weight Measured Diagnostic Results Date Name [...] Peptide - Chemistry sodium, serum 142 mmol/L 560-986 1876/07/18 potassium, serum 5.0 mmol/L 3.5-5.2 chloride, serum [...] Panel - Chemistry sodium, serum 138 mmol/L 580-605 4117/06/04 carbon dioxide, venous blood 23.4 mmol/L 21.0-32.0 [...] Rate - Chemistry sodium, serum 142 mmol/L 000-878 9083/02/27 carbon dioxide, venous blood 26.2 mmol/L 21.0-32.0 [...] count 178 10^3/MM^3 10*3/mm3 142-424 Lab Report: Comp. Metabolic Panel - Chemistry sodium, serum 140 mmol/L 497-289 4509/07/13 carbon dioxide, venous blood 23.7 mmol/L 21.0-32.0 [...] dipstick Negative Negative sodium, serum 142 mmol/L 255-492 7537/01/08 carbon dioxide, venous blood 23.9 mmol/L 21.0-32.0 [...] Negative;Positive Encounters Code Encounter Date Provider Facility CPT-68537 Level 4 Est. Patient 11:32:07 CDT Simon Castillo MD [facility] CPT-41241 Level 3 Est. Patient 11:36:15 CDT Simon Castillo MD [facility] CPT-41084 Level 4 Est. Patient 14:06:23 CATALOGUE MAKER Simon Castillo MD [facility] CPT-89492 Level 3 Est. Patient 12:04:38 CATALOGUE MAKER Giles [facility] CPT-76842 Level 3 Est. Patient 11:57:09 CATALOGUE MAKER [facility] CPT-52149 Level 3 Est. Patient 11:48:57 CATALOGUE MAKER Giles [facility] CPT-83200 Level 4 Est. Patient 09:54:36 CDT Simon Castillo MD [facility] CPT-33902 Level 4 Est. Patient 08:48:38 CDT Simon Castillo MD [facility] CPT-21947 Level 4 Est. Patient 09:54:08 CDT Simon Castillo MD [facility] CPT-97386 Level 4 Est. Patient 16:11:23 CDT Simon Castillo MD [facility] CPT-21739 Level 4 Est. Patient 09:29:28 CATALOGUE MAKER Simon Castillo MD [facility] CPT-18261 Level 3 Est. Patient 09:18:25 CDT Simon Castillo MD [facility] CPT-27168 Level 4 Est. Patient 11:51:23 CDT Simon Castillo MD [facility] CPT-00771 Level 4 Est. Patient 14:32:04 CDT Neto Oshea DO [facility] CPT-76391 Level 3 Est. Patient 08:41:43 CDT [facility] CPT-45174 Level 3 Est. Patient 08:40:53 CDT G[facility] CPT-97750 Level 3 Est. Patient 08:36:52 CDT Giles [facility] CPT-31682 Level 3 Est. Patient 09:08:44 CDT Giles Salcidol [facility] CPT-00199 Level 4 Est. Patient 09:17:32 CATALOGUE MAKER Simon Castillo MD [facility] CPT-59044 Level 3 Est. Patient 11:22:22 CATALOGUE MAKER Simon Castillo MD [facility] CPT-34000 Level 3 Est. Patient 09:02:14 CDT Simon Castillo MD [facility] CPT-76739 Level 4 Est. Patient 08:47:25 CDT Simon Castillo MD [facility] CPT-18098 Level 4 Est. Patient 10:17:25 CDT Simon Castillo MD [facility] CPT-33115 Level 4 Est. Patient 10:10:09 CATALOGUE MAKER Simon Castillo MD [facility] CPT-20106 Level 4 Est. Patient 11:48:19 CDT Simon Castillo MD [facility] CPT-04863 Level 4 Est. Patient 08:59:29 CDT Simon Castillo MD [facility] CPT-92490 Level 4 Est. Patient 10:52:51 CATALOGUE MAKER Simon Castillo MD [facility] CPT-22029 Level 4 Est. Patient 11:50:30 CDT Simon Castillo MD [facility] CPT-36882 Level 4 Est. Patient 09:54:46 CDT Simon Castillo MD [facility] CPT-01224 Level 3 Est. Patient 11:10:14 CDT Simon Castillo MD [facility] CPT-88502 Level 4 Est. Patient 09:44:02 CDT Simon Castillo MD [facility] CPT-98016 Level 3 Est. Patient 09:27:48 CDT Simon Castillo MD [facility] CPT-83710 Level 3 Est. Patient 09:58:06 CATALOGUE MAKER Simon Castillo MD [facility] CPT-48901 Level 3 Est. Patient 09:51:35 CDT Simon Castillo MD [facility] Procedures Code Procedure Name Date Entry Date Standard Description CPT-44817 EKG Trac and Interp - XRAY USE ONLY 11:41:45 CDT 02/23 CPT-21238 Chest, 2 views 11:41:45 CDT CPT-65032 EKG Trac and Interp - XRAY USE ONLY 12:19:18 CATALOGUE MAKER 09/29 CPT-21974 Chest, 2 views 12:19:17 CATALOGUE MAKER CPT-Cryo Cryotherapy 09:54:37 CDT CPT-18802 First Vx - Ix admin for Medicare patients 09:13:10 CDT CPT-83429 Fluzone High-Dose Intramuscular Suspension 09:13:10 CDT CPT-G0439 Subsequent Annual Wellness Exam 09:41:17 CDT CPT-51787 Lipid - LAB USE ONLY 17:15:33 CDT CPT-26790 HGBA1C - LAB USE ONLY 17:15:33 CDT CPT-59545 CMP - LAB USE ONLY 17:15:33 CDT CPT-47420 Venipuncture Draw Fee 17:15:33 CDT CPT-[facility] Transitional Care Mgmt-High 11:01:28 CATALOGUE MAKER CPT-67968 First Vx - Ix admin for Medicare patients 17:33:39 CDT CPT-25647 Fluzone High-Dose Intramuscular Suspension 17:33:39 CDT CPT-G0438 Initial Annual Wellness Exam 08:57:30 CDT CPT-98036 Chest 2V Frontal and Lat - XRAY USE ONLY 09:00:14 CDT CPT-34136 Venipuncture Draw Fee 13:33:02 CDT CPT-02792 Bone Density 09:37:49 CATALOGUE MAKER CPT-44454 Fluzone High Dose 17:20:42 CDT CPT-94579 Prevnar 13 17:20:42 CDT CPT-84743 Administration 2+ single or combination vaccines inc oral 17:20:42 CDT CPT-00139 Administration single or combination vaccine inc oral 17 :20:42 CDT CPT-81196 Hand comp min 3V 09:24:38 CDT CPT-09737 Venipuncture Draw Fee 08:07:29 CATALOGUE MAKER CPT-14722 Venipuncture Draw Fee 09:02:51 CATALOGUE MAKER CPT-25611 Venipuncture Draw Fee 12:45:08 CATALOGUE MAKER CPT-88048 Venipuncture Draw Fee 09:25:31 CDT CPT-G0008 Administration of Influenza Virus Vaccine 14:41:29 CDT CPT-52557 Fluzone High-Dose Intramuscular Suspension 14:41:29 CDT CPT-Cryo Cryotherapy 11:48:20 CDT CPT-92686 EKG Trac and Interp 09:21:58 CDT CPT-83062 Chest 2V Frontal and Lat 09:21:58 CDT CPT-Cryo Cryotherapy 10:54:51 CATALOGUE MAKER CPT-50951 Administration 2+ single or combination vaccines inc oral 10:42:19 CDT CPT-81398 Administration single or combination vaccine inc oral 10 :42:19 CDT CPT-29232 Pneumovax 10:42:19 CDT CPT-46987 Influenza High Dose age 65+ 10:42:19 CDT CPT-40362 Administration single or combination vaccine inc oral 13 :18:54 CDT CPT-46274 Influenza High Dose age 65+ 13:18:54 CDT CPT-62653 Venipuncture Draw Fee 11:53:16 CDT CPT-06937 LS spine comp w obliq 11:03:13 CDT CPT-Cryo Cryotherapy 08:27:16 CATALOGUE MAKER CPT-96785 Administration single or combination vaccine inc oral 10 :56:34 CDT CPT-79341 Influenza High Dose age 65+ 10:56:34 CDT
--- OUTSIDE RECORDS SUMMARY | 2018-07-20 10:02 | XMS REPORT | Clinical Summary ---
Author Author Admin, E Organization [employer] Address Unknown Phone Unavailable Allergies, Adverse Reactions, [...] Simon Castillo MD Rheumatoid arthritis Steroid use, family member caretaker V58.65 Resolved Simon Castillo MD Long-term (current) [...] ICD-714.0 Kerry Castillo MD Pharyngitis ICD-462 Kerry Csatillo MD Dyspnea ICD-786.09 Kerry Castillo MD 2016 [...] MG ORAL TABLET 1 po qd FUROSEMIDE 60188365425 Active Simon Castillo MD Active BACTRIM DS 800-160 MG ORAL TABLET 1 po BID x 7 days SULFAMETHOXAZOLE-TRIMETHOPRIM 99041362050 No Longer Active Simno Castillo MD Active AZITHROMYCIN 250 MG ORAL TABLET 2 po qd x 1, then 1 po qd x 4 AZITHROMYCIN 90989761094 No Longer Active Simon Castillo MD Active PROMETHAZINE-CODEINE 6.25-10 MG/5ML ORAL SYRUP 5ml po qHS PRN Cough PROMETHAZINE-CODEINE 42594349475 No Longer Active Simon Castillo MD Active SINGULAIR 10 MG ORAL TABLET 1 po qd PRN Asthma/Allergies MONTELUKAST SODIUM 49524535967 Active Simon Castillo MD Active PREDNISONE 20 MG ORAL TABLET 2 po qd x 5 days PREDNISONE 81777346429 No Longer Active Simon Castillo MD Active VIAGRA 100 MG ORAL TABLET 0.5 to 1 po qd PRN Erectile dysfunction SILDENAFIL CITRATE 32410690766 Active Simon Castillo MD Active LUTEIN-ZEAXANTHIN 6-1 MG ORAL TABLET 2 po qd LUTEIN- ZEAXANTHIN 03104903778 Active Simon Castillo MD Active BILBERRY CAPSULE 1 po qd BILBERRY (VACCINIUM MYRTILLUS) CAPS 11289917690 Active Simon Castillo MD Active TRAMADOL HCL 50 MG ORAL TABLET 1-2 tablets every 6 hours as needed for pain TRAMADOL HCL 14400588477 No Longer Active Simon Castillo MD Active HYDROCODONE-ACETAMINOPHEN 5-325 MG ORAL TABLET 1 tab by mouth 8 hours as needed for pain HYDROCODONE-ACETAMINOPHEN 87780138663 No Longer Active Simon Castillo MD Active BUMETANIDE 0.5 MG ORAL TABLET 1 po qd BUMETANIDE 25558300371 Active Simon Castillo MD Active AUGMENTIN 875-125 MG ORAL TABLET 1 po BID x 10 days AMOXICILLIN-POT CLAVULANATE 16223841689 No Longer Active Simon Castillo MD Active PIOGLITAZONE HCL 30 MG ORAL TABLET 1 po qd PIOGLITAZONE HCL 93726704945 Active Simon Castillo MD Active GLIMEPIRIDE 4 MG ORAL TABLET 1 po BID GLIMEPIRIDE 91739776024 Active Simon Castillo MD Active ASPIRIN EC 81 MG ORAL TABLET DELAYED RELEASE 1 po qd ASPIRIN 21143031648 Active Simon Castillo MD Active CLOTRIMAZOLE 1 % EXTERNAL CREAM Apply to affected area of feet twice daily PRN Rash CLOTRIMAZOLE 12288565440 No Longer Active Simon Castillo MD Active PREDNISONE 5 MG ORAL TABLET 1 po BID PREDNISONE 05593682146 Active Dolly MCDERMOTT Active FISH OIL 1000 MG ORAL CAPSULE DELAYED RELEASE 1 po BID OMEGA- 3 FATTY ACIDS 49697906530 Active Simon Castillo MD Active LISINOPRIL 10 MG ORAL TABLET 1 p qd LISINOPRIL 71819579797 Active Simon Castillo MD Active CLARITIN 10 MG ORAL TABLET 1 tablet by mouth daily as needed for allergies LORATADINE 58486917658 No Longer Active Simon Castillo MD Active TRIAMCINOLONE ACETONIDE 0.1 % EXTERNAL OINTMENT Apply to affected areas TID for up to 2 weeks TRIAMCINOLONE ACETONIDE 14955486955 No Longer Active Simon Castillo MD Active LASIX 20 MG ORAL TABLET 1 tablet by mouth daily x 2 days FUROSEMIDE 14041488801 No Longer Active Simon Castillo MD Active SULFASALAZINE 500 MG ORAL TABLET DELAYED RELEASE 2 tabs BID 02/26 SULFASALAZINE 08311786929 No Longer Active Neto Oshea DO Active PREDNISONE 20 MG ORAL TABLET 2 tabs daily for 3 days, 1 tab daily for 3 days, 1/2 tab daily for 2 days PREDNISONE 53673140961 No Longer Active Jillina Deepti HEMPHILL Active PREDNISONE 20 MG ORAL TABLET 1 tablet daily for airway inflammation PREDNISONE 02205599471 No Longer Active Jillina Fraamayal HYDRAULIC DESIGN ENGINEER Active AZITHROMYCIN 250 MG ORAL TABLET 2 po qd x 1 day, then 1 po qd x 4 days 01/28 AZITHROMYCIN 01740349342 No Longer Active Jillina Lolyl HYDRAULIC DESIGN ENGINEER Active TRAMADOL HCL 50 MG ORAL TABLET 1 po q6hr PRN Pain TRAMADOL HCL 51181315581 No Longer Active Simon Castillo MD Active PREDNISONE 5 MG ORAL TABLET 1 po qod PREDNISONE 78669101454 No Longer Active Simon Castillo MD Active SYMBICORT 160-4.5 MCG/ACT INHALATION AEROSOL 2 puff BID BUDESONIDE-FORMOTEROL FUMARATE 89452471273 No Longer Active Simon Castillo MD Active FLONASE 50 MCG/ACT NASAL SUSPENSION 2 puffs in each nostril daily FLUTICASONE PROPIONATE 96295483841 No Longer Active Simon Castillo MD Active PREDNISONE 20 MG ORAL TABLET 2 tabs daily for 5 days, then 1 daily for 5 days PREDNISONE 47257292153 No Longer Active Simon Castillo MD Active PREDNISONE 20 MG ORAL TABLET 2 tabs daily for 5 days, then 1 daily for 5 days , then 0.5 for 4 days PREDNISONE 71716628262 No Longer Active Simon Castillo MD Active PREDNISONE 20 MG ORAL TABLET 2 tabs daily for 3 days, 1 tab daily for 3 days, 1/2 tab daily for 2 days PREDNISONE 21553033996 No Longer Active Simon Castillo MD Active AZITHROMYCIN 250 MG ORAL TABLET 2 po qd x 1 day, then 1 po qd x 4 days 03/16 AZITHROMYCIN 92532331430 No Longer Active Simon Castillo MD Active CARVEDILOL 6.25 MG ORAL TABLET 1 po BID CARVEDILOL 76688061058 Active Simon Castillo MD Active LISINOPRIL-HYDROCHLOROTHIAZIDE 20-12.5 MG ORAL TABLET 1/2 tab by mouth daily LISINOPRIL-HYDROCHLOROTHIAZIDE 74583103976 No Longer Active Simon Castillo MD Active PREDNISONE 5 MG ORAL TABLET Take one po qod PREDNISONE 51057348839 No Longer Active Simon Castillo MD Active GLYBURIDE 5 MG ORAL TABLET Take one by mouth daily GLYBURIDE 02254453828 No Longer Active Simon Castillo MD Active LEVAQUIN 750 MG ORAL TABLET 1 po qod x 5 doses LEVOFLOXACIN 15577570461 No Longer Active Simon Castillo MD Active CETIRIZINE HCL 10 MG ORAL TABLET 1 po qd as needed for allergies CETIRIZINE HCL 16533406862 No Longer Active Simon Castillo MD Active ATENOLOL 50 MG ORAL TABLET Take one by mouth daily ATENOLOL 72136207098 No Longer Active Simon Castillo MD Active FLONASE 50 MCG/ACT NASAL SUSPENSION 2 puffs in each nostril daily FLUTICASONE PROPIONATE 64060620976 No Longer Active Simon Castillo MD Active GLYBURIDE 5 MG ORAL TABLET Take one by mouth daily GLYBURIDE 08122871406 No Longer Active Simon Castillo MD Active SYMBICORT 80-4.5 MCG/ACT INHALATION AEROSOL 2 puffs twice a day BUDESONIDE-FORMOTEROL FUMARATE 56986432927 No Longer Active Simon Castillo MD Active PREDNISONE 20 MG ORAL TABLET 2 tabs daily for 4 days, 1 tab daily for 4 days, 1/2 tab daily for 4 days PREDNISONE 05406337856 No Longer Active Simon Castillo MD Active AMOXICILLIN 500 MG ORAL CAPSULE 2 po BID x 10 days AMOXICILLIN 97482307132 No Longer Active Simon Castillo MD Active METFORMIN HCL 1000 MG ORAL TABLET 1 by mounth twice a day METFORMIN HCL 06758434758 No Longer Active Simon Castillo MD Active IBUPROFEN 800 MG ORAL TABLET Take 1 tab every 6 hrs prn IBUPROFEN 63334301453 No Longer Active Simon Castillo MD Active GLYBURIDE 2.5 MG ORAL TABLET Take one by mouth daily GLYBURIDE 57066128055 No Longer Active Simon Castillo MD Active LANCETS 2 qd LANCETS 70992986816 Active Pamela Conde Active ACACIA CONTOUR TEST IN VITRO STRIP Use with testing twice daily GLUCOSE BLOOD 70626800402 Active Simon Castillo MD Active GLYBURIDE 2.5 MG ORAL TABLET Take one by mouth daily GLYBURIDE 2.5 MG ORAL TABLET 535988 GLYBURIDE Inactive PREDNISONE 20 MG ORAL TABLET 2 tabs daily for 4 days, 1 tab daily for 4 days, 1/2 tab daily for 4 days PREDNISONE 20 MG ORAL TABLET 999865 PREDNISONE Inactive SYMBICORT 80-4.5 MCG/ACT INHALATION AEROSOL 2 puffs twice a day SYMBICORT 80-4.5 MCG/ACT INHALATION AEROSOL BUDESONIDE- FORMOTEROL FUMARATE Inactive FLONASE 50 MCG/ACT NASAL SUSPENSION 2 puffs in each nostril daily FLONASE 50 MCG/ACT NASAL SUSPENSION 5395632 FLUTICASONE PROPIONATE Inactive ATENOLOL 50 MG ORAL TABLET Take one by mouth daily ATENOLOL 50 MG ORAL TABLET 791156 ATENOLOL Inactive CETIRIZINE HCL 10 MG ORAL TABLET 1 po qd as needed for allergies CETIRIZINE HCL 10 MG ORAL TABLET 8753212 CETIRIZINE HCL Inactive LEVAQUIN 750 MG ORAL TABLET 1 po qod x 5 doses LEVAQUIN 750 MG ORAL TABLET 813750 LEVOFLOXACIN Inactive GLYBURIDE 5 MG ORAL TABLET Take one by mouth daily GLYBURIDE 5 MG ORAL TABLET 307612 GLYBURIDE Inactive PREDNISONE 5 MG ORAL TABLET Take one po qod PREDNISONE 5 MG ORAL TABLET 628612 PREDNISONE Inactive PREDNISONE 20 MG ORAL TABLET 2 tabs daily for 5 days, then 1 daily for 5 days PREDNISONE 20 MG ORAL TABLET 280387 PREDNISONE Inactive FLONASE 50 MCG/ACT NASAL SUSPENSION 2 puffs in each nostril daily FLONASE 50 MCG/ACT NASAL SUSPENSION 8758387 FLUTICASONE PROPIONATE Inactive SYMBICORT 160-4.5 MCG/ACT INHALATION AEROSOL 2 puff BID SYMBICORT 160-4.5 MCG/ACT INHALATION AEROSOL BUDESONIDE-FORMOTEROL FUMARATE Inactive PREDNISONE 5 MG ORAL TABLET 1 po qod PREDNISONE 5 MG ORAL TABLET 438854 PREDNISONE Inactive PREDNISONE 20 MG ORAL TABLET 1 tablet daily for airway inflammation PREDNISONE 20 MG ORAL TABLET 095236 PREDNISONE Inactive SULFASALAZINE 500 MG ORAL TABLET DELAYED RELEASE 2 tabs BID 02/26 SULFASALAZINE 500 MG ORAL TABLET DELAYED RELEASE 004726 SULFASALAZINE Inactive LASIX 20 MG ORAL TABLET 1 tablet by mouth daily x 2 days LASIX 20 MG ORAL TABLET 243304 FUROSEMIDE Inactive CLARITIN 10 MG ORAL TABLET 1 tablet by mouth daily as needed for allergies CLARITIN 10 MG ORAL TABLET 105250 LORATADINE Inactive CLOTRIMAZOLE 1 % EXTERNAL CREAM Apply to affected area of feet twice daily PRN Rash CLOTRIMAZOLE 1 % EXTERNAL CREAM 541647 CLOTRIMAZOLE Inactive HYDROCODONE-ACETAMINOPHEN 5-325 MG ORAL TABLET 1 tab by mouth 8 hours as needed for pain HYDROCODONE-ACETAMINOPHEN 5-325 MG ORAL TABLET 617734 HYDROCODONE-ACETAMINOPHEN Inactive TRAMADOL HCL 50 MG ORAL TABLET 1-2 tablets every 6 hours as needed for pain TRAMADOL HCL 50 MG ORAL TABLET 622256 TRAMADOL HCL Inactive PROMETHAZINE-CODEINE 6.25-10 MG/5ML ORAL SYRUP 5ml po qHS PRN Cough PROMETHAZINE-CODEINE 6.25-10 MG/5ML ORAL SYRUP 271078 PROMETHAZINE-CODEINE Inactive AZITHROMYCIN 250 MG ORAL TABLET 2 po qd x 1, then 1 po qd x 4 AZITHROMYCIN 250 MG ORAL TABLET 276088 AZITHROMYCIN Inactive AMOXICILLIN 500 MG ORAL CAPSULE 2 po BID x 10 days AMOXICILLIN 500 MG ORAL CAPSULE 495798 AMOXICILLIN Inactive GLYBURIDE 5 MG ORAL TABLET Take one by mouth daily GLYBURIDE 5 MG ORAL TABLET 672296 GLYBURIDE Inactive AZITHROMYCIN 250 MG ORAL TABLET 2 po qd x 1 day, then 1 po qd x 4 days 03/16 AZITHROMYCIN 250 MG ORAL TABLET 813981 AZITHROMYCIN Inactive PREDNISONE 20 MG ORAL TABLET 2 tabs daily for 3 days, 1 tab daily for 3 days, 1/2 tab daily for 2 days PREDNISONE 20 MG ORAL TABLET 342403 PREDNISONE Inactive PREDNISONE 20 MG ORAL TABLET 2 tabs daily for 5 days, then 1 daily for 5 days , then 0.5 for 4 days PREDNISONE 20 MG ORAL TABLET 793828 PREDNISONE Inactive AZITHROMYCIN 250 MG ORAL TABLET 2 po qd x 1 day, then 1 po qd x 4 days 01/28 AZITHROMYCIN 250 MG ORAL TABLET 608519 AZITHROMYCIN Inactive PREDNISONE 20 MG ORAL TABLET 2 tabs daily for 3 days, 1 tab daily for 3 days, 1/2 tab daily for 2 days PREDNISONE 20 MG ORAL TABLET 754008 PREDNISONE Inactive TRIAMCINOLONE ACETONIDE 0.1 % EXTERNAL OINTMENT Apply to affected areas TID for up to 2 weeks TRIAMCINOLONE ACETONIDE 0.1 % EXTERNAL OINTMENT 2536342 TRIAMCINOLONE ACETONIDE Inactive AUGMENTIN 875-125 MG ORAL TABLET 1 po BID x 10 days AUGMENTIN 875-125 MG ORAL TABLET 209210 AMOXICILLIN-POT CLAVULANATE Inactive PREDNISONE 20 MG ORAL TABLET 2 po qd x 5 days PREDNISONE 20 MG ORAL TABLET 376097 PREDNISONE Inactive BACTRIM DS 800-160 MG ORAL TABLET 1 po BID x 7 days BACTRIM DS 800-160 MG ORAL TABLET 260558 SULFAMETHOXAZOLE-TRIMETHOPRIM Inactive Immunizations Vaccine Administration Date Value Standard [...] temperature weight E&M 221.0 [lb_av] Weight Measured Diagnostic Results Date Name [...] ng/mL Chart Maintenance: Outside labs entered on [facility] - Hematology hemoglobin, blood 12.0 g/dL Lab [...] Peptide - Chemistry sodium, serum 142 mmol/L 259-711 3744/07/18 potassium, serum 5.0 mmol/L 3.5-5.2 chloride, serum [...] Panel - Chemistry sodium, serum 138 mmol/L 094-972 4657/06/04 carbon dioxide, venous blood 23.4 mmol/L 21.0-32.0 [...] Rate - Chemistry sodium, serum 142 mmol/L 745-889 9803/02/27 carbon dioxide, venous blood 26.2 mmol/L 21.0-32.0 [...] Panel - Chemistry sodium, serum 140 mmol/L 274-632 0555/07/13 carbon dioxide, venous blood 23.7 mmol/L 21.0-32.0 [...] dipstick Negative Negative sodium, serum 142 mmol/L 506-870 9291/01/08 carbon dioxide, venous blood 23.9 mmol/L 21.0-32.0 [...] Negative;Positive Encounters Code Encounter Date Provider Facility CPT-54189 Level 4 Est. Patient 11:32:07 CDT Simon Castillo MD [facility] CPT-89641 Level 3 Est. Patient 11:36:15 CDT Simon Castillo MD [facility] CPT-36671 Level 4 Est. Patient 14:06:23 WORKING MANAGER Simon Castillo MD [facility] CPT-10264 Level 3 Est. Patient 12:04:38 WORKING MANAGER Giles Tatum APRN [facility] CPT-93758 Level 3 Est. Patient 11:57:09 WORKING MANAGER Giles Tatum [facility] CPT-11541 Level 3 Est. Patient 11:48:57 WORKING MANAGER Giles Tatum [facility] CPT-41077 Level 4 Est. Patient 09:54:36 CDT Simon Castillo MD [facility] CPT-49755 Level 4 Est. Patient 08:48:38 CDT Simon Castillo MD [facility] CPT-04990 Level 4 Est. Patient 09:54:08 CDT Simon Castillo MD [facility] CPT-68052 Level 4 Est. Patient 16:11:23 CDT Simon Castillo MD [facility] CPT-75540 Level 4 Est. Patient 09:29:28 WORKING MANAGER Simon Castillo MD [facility] CPT-83406 Level 3 Est. Patient 09:18:25 CDT Simon Castillo MD [facility] CPT-82196 Level 4 Est. Patient 11:51:23 CDT Simon Castillo MD [facility] CPT-93088 Level 4 Est. Patient 14:32:04 CDT Neto Oshea DO [facility] CPT-59713 Level 3 Est. Patient 08:41:[address] [facility] CPT-33956 Level 3 Est. Patient 08:40:[address] [facility] CPT-36432 Level 3 Est. Patient 08:36:[address] [facility] CPT-83952 Level 3 Est. Patient 09:08:[address] [facility] CPT-00395 Level 4 Est. Patient 09:17:32 WORKING MANAGER Simon Castillo MD [facility] CPT-34491 Level 3 Est. Patient 11:22:22 WORKING MANAGER Simon Castillo MD [facility] CPT-57621 Level 3 Est. Patient 09:02:14 CDT Simon Castillo MD [facility] CPT-55191 Level 4 Est. Patient 08:47:25 CDT Simon Castillo MD [facility] CPT-73924 Level 4 Est. Patient 10:17:25 CDT Simon Castillo MD [facility] CPT-38153 Level 4 Est. Patient 10:10:09 WORKING MANAGER Simon Castillo MD [facility] CPT-81844 Level 4 Est. Patient 11:48:19 CDT Simon Castillo MD [facility] CPT-70112 Level 4 Est. Patient 08:59:29 CDT Simon Castillo MD [facility] CPT-97774 Level 4 Est. Patient 10:52:51 WORKING MANAGER Simon Castillo MD [facility] CPT-25718 Level 4 Est. Patient 11:50:30 CDT Simon Castillo MD [facility] CPT-79465 Level 4 Est. Patient 09:54:46 CDT Simon Castillo MD [facility] CPT-83211 Level 3 Est. Patient 11:10:14 CDT Simon Castillo MD [facility] CPT-88489 Level 4 Est. Patient 09:44:02 CDT Simon Castillo MD [facility] CPT-69835 Level 3 Est. Patient 09:27:48 CDT Simon Castillo MD [facility] CPT-90432 Level 3 Est. Patient 09:58:06 WORKING MANAGER Simon Castillo MD [facility] CPT-64017 Level 3 Est. Patient 09:51:35 CDT Simon Castillo MD [facility] Procedures Code Procedure Name Date Entry Date Standard Description CPT-81874 EKG Trac and Interp - XRAY USE ONLY 11:41:45 CDT 02/23 CPT-76445 Chest, 2 views 11:41:45 CDT CPT-31064 EKG Trac and Interp - XRAY USE ONLY 12:19:18 WORKING MANAGER 09/29 CPT-64189 Chest, 2 views 12:19:17 WORKING MANAGER CPT-[facility] Cryotherapy 09:54:37 CDT CPT-34140 First Vx - Ix admin for Medicare patients 09:13:10 CDT CPT-02139 Fluzone High-Dose Intramuscular Suspension 09:13:10 CDT CPT-G0439 Subsequent Annual Wellness Exam 09:41:17 CDT CPT-20820 Lipid - LAB USE ONLY 17:15:33 CDT CPT-30438 HGBA1C - LAB USE ONLY 17:15:33 CDT CPT-62402 CMP - LAB USE ONLY 17:15:33 CDT CPT-65982 Venipuncture Draw Fee 17:15:33 CDT CPT-[facility] Transitional Care Mgmt-High 11:01:28 WORKING MANAGER CPT-98006 First Vx - Ix admin for Medicare patients 17:33:39 CDT CPT-95746 Fluzone High-Dose Intramuscular Suspension 17:33:39 CDT CPT-G0438 Initial Annual Wellness Exam 08:57:30 CDT CPT-78580 Chest 2V Frontal and Lat - XRAY USE ONLY 09:00:14 CDT CPT-24173 Venipuncture Draw Fee 13:33:02 CDT CPT-19092 Bone Density 09:37:49 WORKING MANAGER CPT-54953 Fluzone High Dose 17:20:42 CDT CPT-82260 Prevnar 13 17:20:42 CDT CPT-55946 Administration 2+ single or combination vaccines inc oral 17:20:42 CDT CPT-99571 Administration single or combination vaccine inc oral 17 :20:42 CDT CPT-08166 Hand comp min 3V 09:24:38 CDT CPT-20101 Venipuncture Draw Fee 08:07:29 WORKING MANAGER CPT-77630 Venipuncture Draw Fee 09:02:51 WORKING MANAGER CPT-65692 Venipuncture Draw Fee 12:45:08 WORKING MANAGER CPT-95328 Venipuncture Draw Fee 09:25:31 CDT CPT-G0008 Administration of Influenza Virus Vaccine 14:41:29 CDT CPT-04966 Fluzone High-Dose Intramuscular Suspension 14:41:29 CDT CPT-C[facility] Cryotherapy 11:48:20 CDT CPT-39661 EKG Trac and Interp 09:21:58 CDT CPT-31915 Chest 2V Frontal and Lat 09:21:58 CDT CPT-Cryo Cryotherapy 10:54:51 WORKING MANAGER CPT-30282 Administration 2+ single or combination vaccines inc oral 10:42:19 CDT CPT-22560 Administration single or combination vaccine inc oral 10 :42:19 CDT CPT-38193 Pneumovax 10:42:19 CDT CPT-30220 Influenza High Dose age 65+ 10:42:19 CDT CPT-76662 Administration single or combination vaccine inc oral 13 :18:54 CDT CPT-55249 Influenza High Dose age 65+ 13:18:54 CDT CPT-22855 Venipuncture Draw Fee 11:53:16 CDT CPT-95161 LS spine comp w obliq 11:03:13 CDT CPT-Cryo Cryotherapy 08:27:16 WORKING MANAGER CPT-95218 Administration single or combination vaccine inc oral 10 :56:34 CDT CPT-14477 Influenza High Dose age 65+ 10:56:34 CDT
--- OUTSIDE RECORDS SUMMARY | 2018-07-20 10:03 | XMS REPORT | Clinical Summary ---
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 V58.65 Active Megha Mckeon Long-term (current) use [...] 8 hours as needed for pain HYDROCODONE-ACETAMINOPHEN 10847652286 Active Simon Castillo MD Active TRAMADOL HCL 50 MG TABS 1 po q6hr PRN Pain TRAMADOL HCL 32116792756 No Longer Active Simon Castillo MD Active PREDNISONE 5 MG TAB 1-2 tabs daily for rheumatoid arthritis PREDNISONE 31478611376 Active Simon Castillo MD Active PREDNISONE 5 MG TABS 1 po qod PREDNISONE 87760318965 No Longer Active Simon Castillo MD Active SYMBICORT 160-4.5 MCG/ACT AERO 2 puff BID BUDESONIDE- FORMOTEROL FUMARATE 03645055837 No Longer Active Simon Castillo MD Active FLONASE 50 MCG/ACT SUSP 2 puffs in each nostril daily FLUTICASONE PROPIONATE 51775467817 No Longer Active Simon Castillo MD Active PREDNISONE 20 MG TAB 2 tabs daily for 5 days, then 1 daily for 5 days PREDNISONE 20486070767 No Longer Active Simon Castillo MD Active PREDNISONE 20 MG TAB 2 tabs daily for 5 days, then 1 daily for 5 days, then 0.5 for 4 days PREDNISONE 02438830719 No Longer Active Simon Castillo MD Active CLOTRIMAZOLE 1 % EXT CREA Apply to affected area of feet twice daily PRN Rash CLOTRIMAZOLE 13329829816 Active Simon Castillo MD Active PREDNISONE 20 MG TAB 2 tabs daily for 3 days, 1 tab daily for 3 days, 1/2 tab daily for 2 days PREDNISONE 84563176345 No Longer Active Simon Castillo MD Active AZITHROMYCIN 250 MG TABS 2 po qd x 1 day, then 1 po qd x 4 days AZITHROMYCIN 95266403381 No Longer Active Simon Castillo MD Active LISINOPRIL 10 MG TABS 1 tablet by mouth daily LISINOPRIL 97039340801 Active Siomn Castillo MD Active GLIMEPIRIDE 1 MG TABS 1 po q a.m. GLIMEPIRIDE 84993679413 Active Simon Castillo MD Active CARVEDILOL 6.25 MG TABS 1 po BID CARVEDILOL 20411294303 Active Simon Castillo MD Active LISINOPRIL-HYDROCHLOROTHIAZIDE 20-12.5 MG TABS 1/2 tab by mouth daily LISINOPRIL-HYDROCHLOROTHIAZIDE 16309342388 No Longer Active Simon Castillo MD Active TRAMADOL HCL 50 MG TABS 1-2 tablets every 6 hours as needed for pain TRAMADOL HCL 35397882422 Active Simon Castillo MD Active PREDNISONE 5 MG TAB Take one po qod PREDNISONE 87829763544 No Longer Active Simon Castillo MD Active GLYBURIDE 5 MG TAB Take one by mouth daily GLYBURIDE 17555347449 No Longer Active Simon Castillo MD Active LEVAQUIN 750 MG TABS 1 po qod x 5 doses LEVOFLOXACIN 96830105152 No Longer Active Simon Castillo MD Active CETIRIZINE HCL 10 MG TABS 1 po qd as needed for allergies CETIRIZINE HCL 05404629210 No Longer Active Simon Castillo MD Active FISH OIL 1000 MG CPDR 1 pill by mouth twice daily for cholesterol OMEGA -3 FATTY ACIDS 89980883661 Active Simon Castillo MD Active BILBERRY CAPS 1 tab daily BILBERRY (VACCINIUM MYRTILLUS) CAPS 07635072757 Active Simon Castillo MD Active ATENOLOL 50 MG TABS Take one by mouth daily ATENOLOL 16855014262 No Longer Active Simon Castillo MD Active FLONASE 50 MCG/ACT SUSP 2 puffs in each nostril daily FLUTICASONE PROPIONATE 49273101238 No Longer Active Simon Castillo MD Active GLYBURIDE 5 MG TAB Take one by mouth daily GLYBURIDE 99942761911 No Longer Active Simon Castillo MD Active SYMBICORT 80-4.5 MCG/ACT AERO 2 puffs twice a day BUDESONIDE-FORMOTEROL FUMARATE 51975507762 No Longer Active Simon Castillo MD Active PREDNISONE 20 MG TAB 2 tabs daily for 4 days, 1 tab daily for 4 days, 1/2 tab daily for 4 days PREDNISONE 50027097346 No Longer Active Simon Castillo MD Active AMOXICILLIN 500 MG CAPS 2 po BID x 10 days AMOXICILLIN 07396270949 No Longer Active Simon Castillo MD Active METFORMIN HCL 1000 MG TABS 1 by mounth twice a day METFORMIN HCL 20736626133 No Longer Active Simon Castillo MD Active LUTEIN-ZEAXANTHIN 6-1 MG TABS Take 2 by mouth daily LUTEIN-ZEAXANTHIN 64085884567 Active Simon Castillo MD Active IBUPROFEN 800 MG TABS Take 1 tab every 6 hrs prn IBUPROFEN 89208872479 No Longer Active Simon Castillo MD Active GLYBURIDE 2.5 MG TABS Take one by mouth daily GLYBURIDE 77284786340 No Longer Active Simon Castillo MD Active LANCETS MISC 2 qd LANCETS 58407774544 Active Pamela Conde Active CAACIA CONTOUR TEST STRP Use with testing twice daily GLUCOSE BLOOD 34816902586 Active Simon Castillo MD Active ACACIA ASPIRIN 325 MG TABS Take one by mouth daily ASPIRIN 80623597673 Active Pamela Conde Active GLYBURIDE 2.5 MG TABS Take one by mouth daily GLYBURIDE 2.5 MG TABS 627955 GLYBURIDE Inactive PREDNISONE 20 MG TAB 2 tabs daily for 4 days, 1 tab daily for 4 days, 1/2 tab daily for 4 days PREDNISONE 20 MG TAB 123982 PREDNISONE Inactive SYMBICORT 80-4.5 MCG/ACT AERO 2 puffs twice a day SYMBICORT 80-4.5 MCG/ACT AERO BUDESONIDE-FORMOTEROL FUMARATE Inactive FLONASE 50 MCG/ACT SUSP 2 puffs in each nostril daily FLONASE 50 MCG/ACT SUSP FLUTICASONE PROPIONATE Inactive ATENOLOL 50 MG TABS Take one by mouth daily ATENOLOL 50 MG TABS 656460 ATENOLOL Inactive CETIRIZINE HCL 10 MG TABS 1 po qd as needed for allergies CETIRIZINE HCL 10 MG TABS 7466814 CETIRIZINE HCL Inactive LEVAQUIN 750 MG TABS 1 po qod x 5 doses LEVAQUIN 750 MG TABS 720788 LEVOFLOXACIN Inactive GLYBURIDE 5 MG TAB Take one by mouth daily GLYBURIDE 5 MG TAB 254478 GLYBURIDE Inactive PREDNISONE 5 MG TAB Take one po qod PREDNISONE 5 MG TAB 259295 PREDNISONE Inactive PREDNISONE 20 MG TAB 2 tabs daily for 5 days, then 1 daily for 5 days PREDNISONE 20 MG TAB 772653 PREDNISONE Inactive FLONASE 50 MCG/ACT SUSP 2 puffs in each nostril daily FLONASE 50 MCG/ACT SUSP FLUTICASONE PROPIONATE Inactive SYMBICORT 160-4.5 MCG/ACT AERO 2 puff BID SYMBICORT 160-4.5 MCG/ACT AERO BUDESONIDE-FORMOTEROL FUMARATE Inactive PREDNISONE 5 MG TABS 1 po qod PREDNISONE 5 MG TABS 588051 PREDNISONE Inactive AMOXICILLIN 500 MG CAPS 2 po BID x 10 days AMOXICILLIN 500 MG CAPS 039884 AMOXICILLIN Inactive GLYBURIDE 5 MG TAB Take one by mouth daily GLYBURIDE 5 MG TAB 976333 GLYBURIDE Inactive AZITHROMYCIN 250 MG TABS 2 po qd x 1 day, then 1 po qd x 4 days AZITHROMYCIN 250 MG TABS 4656630 AZITHROMYCIN Inactive PREDNISONE 20 MG TAB 2 tabs daily for 3 days, 1 tab daily for 3 days, 1/2 tab daily for 2 days PREDNISONE 20 MG TAB 715618 PREDNISONE Inactive PREDNISONE 20 MG TAB 2 tabs daily for 5 days, then 1 daily for 5 days, then 0.5 for 4 days PREDNISONE 20 MG TAB 477148 PREDNISONE Inactive Immunizations Vaccine Administration Date Value [...] Panel - Chemistry sodium, serum 132 mmol/L 838-938 4381/10/26 carbon dioxide, venous blood 22.8 mmol/L 21.0-32.0 [...] Rate - Chemistry sodium, serum 136 mmol/L 711-276 5389/09/18 carbon dioxide, venous blood 24.3 mmol/L 21.0-32.0 [...] HGBA1C - Chemistry sodium, serum 139 mmol/L 008-602 1493/07/09 potassium, serum 5.4 mmol/L 3.5-5.2 chloride, serum [...] Panel - Chemistry cholesterol, serum 139 mg/dL 844-565 2328/09/10 triglyceride, serum, fasting 176 mg/dL 30-200 HDL cholesterol, serum 45 mg/dL 32-96 LDL cholesterol, serum 59 mg/dL 0-130 Lab Report: MICROALBUMIN - Chemistry albumin/creatinine ratio, urine 30 - 300 mg/g mg/g{creat} 0-29 Lab Report: MICROALBUMIN - Lab microalbumin, urine 30 0-19 Lab Report: Prostatic Specific Ag - Chemistry prostate specific antigen 1.52 ng/mL 0.00-4.00 Encounters Code Encounter Date Provider Facility CPT-89174 Level 3 Est. Patient 11:22:22 ACCESS ANALYST Simon Castillo MD [facility] CPT-12141 Level 3 Est. Patient 09:02:14 CDT Simon Castillo MD [facility] CPT-10815 Level 4 Est. Patient 08:47:25 CDT Simon Castillo MD [facility] CPT-75373 Level 4 Est. Patient 10:17:25 CDT Simon Castillo MD [facility] CPT-29389 Level 4 Est. Patient 10:10:09 ACCESS ANALYST Simon Castillo MD [facility] CPT-18677 Level 4 Est. Patient 11:48:19 CDT Simon Castillo MD [facility] CPT-52461 Level 4 Est. Patient 08:59:29 CDT Simon Castillo MD [facility] CPT-87886 Level 4 Est. Patient 10:52:51 ACCESS ANALYST Simon Castillo MD [facility] CPT-02502 Level 4 Est. Patient 11:50:30 CDT Simon Castillo MD [facility] CPT-61669 Level 4 Est. Patient 09:54:46 CDT Simon Castillo MD [facility] CPT-48030 Level 3 Est. Patient 11:10:14 CDT Simon Castillo MD [facility] CPT-56703 Level 4 Est. Patient 09:44:02 CDT Simon Castillo MD [facility] CPT-47980 Level 3 Est. Patient 09:27:48 CDT Simon Castillo MD [facility] CPT-10960 Level 3 Est. Patient 09:58:06 ACCESS ANALYST Simon Castillo MD [facility] CPT-01810 Level 3 Est. Patient 09:51:35 CDT Simon Castillo MD [facility] Procedures Code Procedure Name Date Entry Date Standard Description CPT-66229 Bone Density 09:37:49 ACCESS ANALYST CPT-94408 Fluzone High Dose 17:20:42 CDT CPT-64986 Prevnar 13 17:20:42 CDT CPT-65304 Administration 2+ single or combination vaccines inc oral 17:20:42 CDT CPT-15772 Administration single or combination vaccine inc oral 17 :20:42 CDT CPT-52981 Hand comp min 3V 09:24:38 CDT CPT-06451 Venipuncture Draw Fee 08:07:29 ACCESS ANALYST CPT-36162 Venipuncture Draw Fee 09:02:51 ACCESS ANALYST CPT-58231 Venipuncture Draw Fee 12:45:08 ACCESS ANALYST CPT-38111 Venipuncture Draw Fee 09:25:31 CDT CPT-G0008 Administration of Influenza Virus Vaccine 14:41:29 CDT CPT-15132 Fluzone High-Dose Intramuscular Suspension 14:41:29 CDT CPT-Cryo Cryotherapy 11:48:20 CDT CPT-27092 EKG Trac and Interp 09:21:58 CDT CPT-04466 Chest 2V Frontal and Lat 09:21:58 CDT CPT-Cryo Cryotherapy 10:54:51 ACCESS ANALYST CPT-60912 Administration 2+ single or combination vaccines inc oral 10:42:19 CDT CPT-39355 Administration single or combination vaccine inc oral 10 :42:19 CDT CPT-59705 Pneumovax 10:42:19 CDT CPT-63765 Influenza High Dose age 65+ 10:42:19 CDT CPT-66806 Administration single or combination vaccine inc oral 13 :18:54 CDT CPT-26676 Influenza High Dose age 65+ 13:18:54 CDT CPT-13674 Venipuncture Draw Fee 11:53:16 CDT CPT-05851 LS spine comp w obliq 11:03:13 CDT CPT-Cryo Cryotherapy 08:27:16 ACCESS ANALYST CPT-60954 Administration single or combination vaccine inc oral 10 :56:34 CDT CPT-25558 Influenza High Dose age 65+ 10:56:34 CDT
--- OUTSIDE RECORDS SUMMARY | 2018-07-20 10:04 | XMS REPORT | Clinical Summary ---
Author Author Admin, E Organization [employer] Address Unknown Phone Unavailable Allergies, Adverse [...] MG ORAL TABS 1 po BID GLIMEPIRIDE 24668186584 Active Simon Castillo MD Active ASPIRIN EC 81 MG ORAL TBEC 1 po qd ASPIRIN 76886805395 Active Simon Castillo MD Active CLOTRIMAZOLE 1 % EXT CREA Apply to affected area of feet twice daily PRN Rash CLOTRIMAZOLE 35464381362 No Longer Active Simon Castillo MD Active PREDNISONE 5 MG TAB 1 po BID PREDNISONE 84038491758 Active Simon Castillo MD Active FISH OIL 1000 MG CPDR 1 po BID OMEGA-3 FATTY ACIDS 99589579284 Active Simon Castillo MD Active LISINOPRIL 10 MG TABS 1 p qd LISINOPRIL 26663225771 Active Simon Castillo MD Active CLARITIN 10 MG TAB 1 tablet by mouth daily as needed for allergies LORATADINE 08541049764 No Longer Active Simon Castillo MD Active TRIAMCINOLONE ACETONIDE 0.1 % OINT Apply to affected areas TID for up to 2 weeks TRIAMCINOLONE ACETONIDE 31689440948 No Longer Active Simon Castillo MD Active LASIX 20 MG TAB 1 tablet by mouth daily x 2 days FUROSEMIDE 60295338802 No Longer Active Simon Castillo MD Active SULFASALAZINE 500 MG ORAL TBEC 2 tabs BID SULFASALAZINE 77074764579 No Longer Active Neto Oshea DO Active PREDNISONE 20 MG TAB 2 tabs daily for 3 days, 1 tab daily for 3 days, 1/2 tab daily for 2 days PREDNISONE 63516972912 No Longer Active Jillina Frazell TOWER WATCHMAN Active PREDNISONE 20 MG TAB 1 tablet daily for airway inflammation 02/25 PREDNISONE 65782537540 No Longer Active Jillina Frazell TOWER WATCHMAN Active AZITHROMYCIN 250 MG TABS 2 po qd x 1 day, then 1 po qd x 4 days AZITHROMYCIN 26875780360 No Longer Active Jillina Frazell TOWER WATCHMAN Active HYDROCODONE-ACETAMINOPHEN 5-325 MG TABS 1 tab by mouth 8 hours as needed for pain HYDROCODONE-ACETAMINOPHEN 56024618050 Active Simon Castillo MD Active TRAMADOL HCL 50 MG TABS 1 po q6hr PRN Pain TRAMADOL HCL 42830261041 No Longer Active Simon Castillo MD Active PREDNISONE 5 MG TABS 1 po qod PREDNISONE 92660710219 No Longer Active Simon Castillo MD Active SYMBICORT 160-4.5 MCG/ACT AERO 2 puff BID BUDESONIDE- FORMOTEROL FUMARATE 24437376792 No Longer Active Simon Castillo MD Active FLONASE 50 MCG/ACT SUSP 2 puffs in each nostril daily FLUTICASONE PROPIONATE 91475984335 No Longer Active Simon Castillo MD Active PREDNISONE 20 MG TAB 2 tabs daily for 5 days, then 1 daily for 5 days PREDNISONE 71250266755 No Longer Active Simon Castillo MD Active PREDNISONE 20 MG TAB 2 tabs daily for 5 days, then 1 daily for 5 days, then 0.5 for 4 days PREDNISONE 51277393424 No Longer Active Simon Castillo MD Active PREDNISONE 20 MG TAB 2 tabs daily for 3 days, 1 tab daily for 3 days, 1/2 tab daily for 2 days PREDNISONE 88216573469 No Longer Active Simon Castillo MD Active AZITHROMYCIN 250 MG TABS 2 po qd x 1 day, then 1 po qd x 4 days AZITHROMYCIN 18346682206 No Longer Active Simon Castillo MD Active CARVEDILOL 6.25 MG TABS 1 po BID CARVEDILOL 87702424429 Active Simon Castillo MD Active LISINOPRIL-HYDROCHLOROTHIAZIDE 20-12.5 MG TABS 1/2 tab by mouth daily LISINOPRIL-HYDROCHLOROTHIAZIDE 34906597729 No Longer Active Simon Castillo MD Active TRAMADOL HCL 50 MG TABS 1-2 tablets every 6 hours as needed for pain TRAMADOL HCL 92491567603 Active Giles Tatum APRN Active PREDNISONE 5 MG TAB Take one po qod PREDNISONE 55709325421 No Longer Active Simon Castillo MD Active GLYBURIDE 5 MG TAB Take one by mouth daily GLYBURIDE 51549811885 No Longer Active Simon Castillo MD Active LEVAQUIN 750 MG TABS 1 po qod x 5 doses LEVOFLOXACIN 78818312551 No Longer Active Simon Castillo MD Active CETIRIZINE HCL 10 MG TABS 1 po qd as needed for allergies CETIRIZINE HCL 72319915258 No Longer Active Simon Castillo MD Active BILBERRY CAPS 1 tab daily BILBERRY (VACCINIUM MYRTILLUS) CAPS 98787224053 Active Simon Castillo MD Active ATENOLOL 50 MG TABS Take one by mouth daily ATENOLOL 34704175854 No Longer Active Simon Castillo MD Active FLONASE 50 MCG/ACT SUSP 2 puffs in each nostril daily FLUTICASONE PROPIONATE 98627177200 No Longer Active Simon Castillo MD Active GLYBURIDE 5 MG TAB Take one by mouth daily GLYBURIDE 83982330527 No Longer Active Simon Castillo MD Active SYMBICORT 80-4.5 MCG/ACT AERO 2 puffs twice a day BUDESONIDE-FORMOTEROL FUMARATE 35821632586 No Longer Active Simon Castillo MD Active PREDNISONE 20 MG TAB 2 tabs daily for 4 days, 1 tab daily for 4 days, 1/2 tab daily for 4 days PREDNISONE 06773637771 No Longer Active Simon Castillo MD Active AMOXICILLIN 500 MG CAPS 2 po BID x 10 days AMOXICILLIN 61147848630 No Longer Active Simon Castillo MD Active METFORMIN HCL 1000 MG TABS 1 by mount twice a day METFORMIN HCL 60409466140 No Longer Active Simon Castillo MD Active LUTEIN-ZEAXANTHIN 6-1 MG TABS Take 2 by mouth daily LUTEIN-ZEAXANTHIN 49541958203 Active Simon Castillo MD Active IBUPROFEN 800 MG TABS Take 1 tab every 6 hrs prn IBUPROFEN 66198328566 No Longer Active Simon Castillo MD Active GLYBURIDE 2.5 MG TABS Take one by mouth daily GLYBURIDE 53186061113 No Longer Active Simon Castillo MD Active LANCETS MISC 2 qd LANCETS 91289809718 Active Pamela Conde Active ACACIA CONTOUR TEST STRP Use with testing twice daily GLUCOSE BLOOD 96533954751 Active Simon Castillo MD Active GLYBURIDE 2.5 MG TABS Take one by mouth daily GLYBURIDE 2.5 MG TABS 829055 GLYBURIDE Inactive PREDNISONE 20 MG TAB 2 tabs daily for 4 days, 1 tab daily for 4 days, 1/2 tab daily for 4 days PREDNISONE 20 MG TAB 176800 PREDNISONE Inactive SYMBICORT 80-4.5 MCG/ACT AERO 2 puffs twice a day SYMBICORT 80-4.5 MCG/ACT AERO BUDESONIDE-FORMOTEROL FUMARATE Inactive FLONASE 50 MCG/ACT SUSP 2 puffs in each nostril daily FLONASE 50 MCG/ACT SUSP FLUTICASONE PROPIONATE Inactive ATENOLOL 50 MG TABS Take one by mouth daily ATENOLOL 50 MG TABS 120676 ATENOLOL Inactive CETIRIZINE HCL 10 MG TABS 1 po qd as needed for allergies CETIRIZINE HCL 10 MG TABS 0785868 CETIRIZINE HCL Inactive LEVAQUIN 750 MG TABS 1 po qod x 5 doses LEVAQUIN 750 MG TABS 139583 LEVOFLOXACIN Inactive GLYBURIDE 5 MG TAB Take one by mouth daily GLYBURIDE 5 MG TAB 043796 GLYBURIDE Inactive PREDNISONE 5 MG TAB Take one po qod PREDNISONE 5 MG TAB 124113 PREDNISONE Inactive PREDNISONE 20 MG TAB 2 tabs daily for 5 days, then 1 daily for 5 days PREDNISONE 20 MG TAB 404284 PREDNISONE Inactive FLONASE 50 MCG/ACT SUSP 2 puffs in each nostril daily FLONASE 50 MCG/ACT SUSP FLUTICASONE PROPIONATE Inactive SYMBICORT 160-4.5 MCG/ACT AERO 2 puff BID SYMBICORT 160-4.5 MCG/ACT AERO BUDESONIDE-FORMOTEROL FUMARATE Inactive PREDNISONE 5 MG TABS 1 po qod PREDNISONE 5 MG TABS 024291 PREDNISONE Inactive PREDNISONE 20 MG TAB 1 tablet daily for airway inflammation 02/25 PREDNISONE 20 MG TAB 676922 PREDNISONE Inactive SULFASALAZINE 500 MG ORAL TBEC 2 tabs BID SULFASALAZINE 500 MG ORAL TBEC 914434 SULFASALAZINE Inactive LASIX 20 MG TAB 1 tablet by mouth daily x 2 days LASIX 20 MG TAB 910076 FUROSEMIDE Inactive CLARITIN 10 MG TAB 1 tablet by mouth daily as needed for allergies CLARITIN 10 MG TAB 532386 LORATADINE Inactive CLOTRIMAZOLE 1 % EXT CREA Apply to affected area of feet twice daily PRN Rash CLOTRIMAZOLE 1 % EXT CREA 429923 CLOTRIMAZOLE Inactive AMOXICILLIN 500 MG CAPS 2 po BID x 10 days AMOXICILLIN 500 MG CAPS 465788 AMOXICILLIN Inactive GLYBURIDE 5 MG TAB Take one by mouth daily GLYBURIDE 5 MG TAB 094265 GLYBURIDE Inactive AZITHROMYCIN 250 MG TABS 2 po qd x 1 day, then 1 po qd x 4 days AZITHROMYCIN 250 MG TABS 6622173 AZITHROMYCIN Inactive PREDNISONE 20 MG TAB 2 tabs daily for 3 days, 1 tab daily for 3 days, 1/2 tab daily for 2 days PREDNISONE 20 MG TAB 389110 PREDNISONE Inactive PREDNISONE 20 MG TAB 2 tabs daily for 5 days, then 1 daily for 5 days, then 0.5 for 4 days PREDNISONE 20 MG TAB 464203 PREDNISONE Inactive AZITHROMYCIN 250 MG TABS 2 po qd x 1 day, then 1 po qd x 4 days AZITHROMYCIN 250 MG TABS 8483394 AZITHROMYCIN Inactive PREDNISONE 20 MG TAB 2 tabs daily for 3 days, 1 tab daily for 3 days, 1/2 tab daily for 2 days PREDNISONE 20 MG TAB 920737 PREDNISONE Inactive TRIAMCINOLONE ACETONIDE 0.1 % OINT Apply to affected areas TID for up to 2 weeks TRIAMCINOLONE ACETONIDE 0.1 % OINT 7020201 TRIAMCINOLONE ACETONIDE Inactive Immunizations Vaccine Administration Date [...] Panel - Chemistry sodium, serum 137 mmol/L 146-704 8861/06/06 carbon dioxide, venous blood 24.9 mmol/L 21.0-32.0 [...] Panel - Chemistry sodium, serum 139 mmol/L 702-939 0227/03/17 carbon dioxide, venous blood 29.0 mmol/L 21.0-32.0 [...] Panel - Chemistry cholesterol, serum 126 mg/dL 541-627 2161/02/07 triglyceride, serum, fasting 83 mg/dL 30-200 HDL cholesterol, serum 70 mg/dL 32-96 LDL cholesterol, serum 39 mg/dL 0-130 hemoglobin A1C, blood, as % of total hemoglobin 8.3 % 4.3-6.0 sodium, serum 141 mmol/L 832-072 5713/02/07 carbon dioxide, venous blood 26.0 mmol/L 21.0-32.0 [...] 2.6-7.2 Encounters Code Encounter Date Provider Facility CPT-71823 Level 4 Est. Patient 09:29:28 BRUSH WASHER Simon Castillo MD [facility] CPT-69336 Level 3 Est. Patient 09:18:25 CDT Simon Castillo MD [facility] CPT-26200 Level 4 Est. Patient 11:51:23 CDT Simon Castillo MD [facility] CPT-40762 Level 4 Est. Patient 14:32:04 CDT Neto Oshea DO [facility] CPT-93291 Level 3 Est. Patient 08:41:43 CDT Giles Tatum APRN [facility] CPT-64433 Level 3 Est. Patient 08:40:53 CDT Jonathanviratriston Salcidoalejandrina [facility] CPT-36860 Level 3 Est. Patient 08:36:52 CDT Giles Caotico [facility] CPT-49107 Level 3 Est. Patient 09:08:44 CDT Jonathanmeli Nashtico [facility] CPT-54398 Level 4 Est. Patient 09:17:32 BRUSH WASHER Simon Castillo MD [facility] CPT-75792 Level 3 Est. Patient 11:22:22 BRUSH WASHER Simon Castillo MD [facility] CPT-14862 Level 3 Est. Patient 09:02:14 CDT Simon Castillo MD [facility] CPT-00167 Level 4 Est. Patient 08:47:25 CDT Simon Castillo MD [facility] CPT-79621 Level 4 Est. Patient 10:17:25 CDT Simon Castillo MD [facility] CPT-01093 Level 4 Est. Patient 10:10:09 BRUSH WASHER Simon Castillo MD [facility] CPT-45823 Level 4 Est. Patient 11:48:19 CDT Simon Castillo MD [facility] CPT-10602 Level 4 Est. Patient 08:59:29 CDT Simon Castillo MD [facility] CPT-29874 Level 4 Est. Patient 10:52:51 BRUSH WASHER Simon Castillo MD [facility] CPT-98617 Level 4 Est. Patient 11:50:30 CDT Simon Castillo MD [facility] CPT-74468 Level 4 Est. Patient 09:54:46 CDT Simon Castillo MD [facility] CPT-35636 Level 3 Est. Patient 11:10:14 CDT Simon Castillo MD [facility] CPT-15801 Level 4 Est. Patient 09:44:02 CDT Simon Castillo MD [facility] CPT-83299 Level 3 Est. Patient 09:27:48 CDT Simon Castillo MD [facility] CPT-20569 Level 3 Est. Patient 09:58:06 BRUSH WASHER Simon Castillo MD [facility] CPT-01617 Level 3 Est. Patient 09:51:35 CDT Simon Castillo MD [facility] Procedures Code Procedure Name Date Entry Date Standard Description CPT-59479 Lipid - LAB USE ONLY 17:15:33 CDT CPT-15884 HGBA1C - LAB USE ONLY 17:15:33 CDT CPT-60587 CMP - LAB USE ONLY 17:15:33 CDT CPT-02392 Venipuncture Draw Fee 17:15:33 CDT CPT-REPLACED BY [facility] Transitional Care Mgmt-High 11:01:28 BRUSH WASHER CPT-34399 First Vx - Ix admin for Medicare patients 17:33:39 CDT CPT-60269 Fluzone High-Dose Intramuscular Suspension 17:33:39 CDT CPT-G0438 Initial Annual Wellness Exam 08:57:30 CDT CPT-35455 Chest 2V Frontal and Lat - XRAY USE ONLY 09:00:14 CDT CPT-36156 Venipuncture Draw Fee 13:33:02 CDT CPT-13637 Bone Density 09:37:49 BRUSH WASHER CPT-61679 Fluzone High Dose 17:20:42 CDT CPT-35628 Prevnar 13 17:20:42 CDT CPT-29939 Administration 2+ single or combination vaccines inc oral 17:20:42 CDT CPT-05471 Administration single or combination vaccine inc oral 17 :20:42 CDT CPT-29488 Hand comp min 3V 09:24:38 CDT CPT-39550 Venipuncture Draw Fee 08:07:29 BRUSH WASHER CPT-95133 Venipuncture Draw Fee 09:02:51 BRUSH WASHER CPT-68152 Venipuncture Draw Fee 12:45:08 BRUSH WASHER CPT-11711 Venipuncture Draw Fee 09:25:31 CDT CPT-G0008 Administration of Influenza Virus Vaccine 14:41:29 CDT CPT-31158 Fluzone High-Dose Intramuscular Suspension 14:41:29 CDT CPT-Cryo Cryotherapy 11:48:20 CDT CPT-97255 EKG Trac and Interp 09:21:58 CDT CPT-84822 Chest 2V Frontal and Lat 09:21:58 CDT CPT-Cryo Cryotherapy 10:54:51 BRUSH WASHER CPT-19028 Administration 2+ single or combination vaccines inc oral 10:42:19 CDT CPT-45937 Administration single or combination vaccine inc oral 10 :42:19 CDT CPT-87070 Pneumovax 10:42:19 CDT CPT-66593 Influenza High Dose age 65+ 10:42:19 CDT CPT-70254 Administration single or combination vaccine inc oral 13 :18:54 CDT CPT-67342 Influenza High Dose age 65+ 13:18:54 CDT CPT-80295 Venipuncture Draw Fee 11:53:16 CDT CPT-34127 LS spine comp w obliq 11:03:13 CDT CPT-Cryo Cryotherapy 08:27:16 BRUSH WASHER CPT-72889 Administration single or combination vaccine inc oral 10 :56:34 CDT CPT-96641 Influenza High Dose age 65+ 10:56:34 CDT
--- OUTSIDE RECORDS SUMMARY | 2018-07-20 10:04 | XMS REPORT | Clinical Summary ---
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 Inactive Simon Castillo MD Hand pain, bilateral ICD-729.5 Inactive Simon Castillo MD SCIATICA ICD-724.3 Inactive Simon Castillo MD 2012 Medication List Medication Instructions Start Date Stop Date Generic Name NDC Status Provider Patient Instruction LASIX 20 MG TAB 1 tablet by mouth daily x 2 days FUROSEMIDE [id number] No Longer Active Simon Castillo MD Active SULFASALAZINE 500 MG ORAL TBEC 2 tabs BID SULFASALAZINE 91727565254 No Longer Active Neto Oshea DO Active PREDNISONE 20 MG TAB 2 tabs daily for 3 days, 1 tab daily for 3 days, 1/2 tab daily for 2 days PREDNISONE 21491295717 No Longer Active Jillina Frazell [employer] Active PREDNISONE 20 MG TAB 1 tablet daily for airway inflammation 02/25 PREDNISONE 75987087375 No Longer Active Jillina Frazell [employer] Active CLARITIN 10 MG TAB 1 tablet by mouth daily as needed for allergies LORATADINE 71649113950 Active Jillina Frazell [employer] Active AZITHROMYCIN 250 MG TABS 2 po qd x 1 day, then 1 po qd x 4 days AZITHROMYCIN 57171772637 No Longer Active Jillina Frazell [employer] Active GLIMEPIRIDE 2 MG ORAL TABS 1 po q a.m. GLIMEPIRIDE 48469691200 Active Simon Castillo MD Active HYDROCODONE-ACETAMINOPHEN 5-325 MG TABS 1 tab by mouth 8 hours as needed for pain HYDROCODONE-ACETAMINOPHEN 90928474379 Active Simon Castillo MD Active TRAMADOL HCL 50 MG TABS 1 po q6hr PRN Pain TRAMADOL HCL 29637337414 No Longer Active Simon Castillo MD Active PREDNISONE 5 MG TAB 1-2 tabs daily for rheumatoid arthritis PREDNISONE 21162989145 Active Simon Castillo MD Active PREDNISONE 5 MG TABS 1 po qod PREDNISONE 49717492584 No Longer Active Simon Castillo MD Active SYMBICORT 160-4.5 MCG/ACT AERO 2 puff BID BUDESONIDE- FORMOTEROL FUMARATE 65718170363 No Longer Active Simon Castillo MD Active FLONASE 50 MCG/ACT SUSP 2 puffs in each nostril daily FLUTICASONE PROPIONATE 91846492356 No Longer Active Simon Castillo MD Active PREDNISONE 20 MG TAB 2 tabs daily for 5 days, then 1 daily for 5 days PREDNISONE 53756325733 No Longer Active Simon Castillo MD Active PREDNISONE 20 MG TAB 2 tabs daily for 5 days, then 1 daily for 5 days, then 0.5 for 4 days PREDNISONE 56263645252 No Longer Active Simon Castillo MD Active CLOTRIMAZOLE 1 % EXT CREA Apply to affected area of feet twice daily PRN Rash CLOTRIMAZOLE 33143303100 Active Simon Castillo MD Active PREDNISONE 20 MG TAB 2 tabs daily for 3 days, 1 tab daily for 3 days, 1/2 tab daily for 2 days PREDNISONE 22058871833 No Longer Active Simon Castillo MD Active AZITHROMYCIN 250 MG TABS 2 po qd x 1 day, then 1 po qd x 4 days AZITHROMYCIN 69381319530 No Longer Active Simon Castillo MD Active LISINOPRIL 10 MG TABS 1 tablet by mouth daily LISINOPRIL 58196387531 Active Simon Castillo MD Active CARVEDILOL 6.25 MG TABS 1 po BID CARVEDILOL 93116454603 Active Simon Castillo MD Active LISINOPRIL-HYDROCHLOROTHIAZIDE 20-12.5 MG TABS 1/2 tab by mouth daily LISINOPRIL-HYDROCHLOROTHIAZIDE 37043077686 No Longer Active Simon Castillo MD Active TRAMADOL HCL 50 MG TABS 1-2 tablets every 6 hours as needed for pain TRAMADOL HCL 03317137245 Active Giles Tatum APRN Active PREDNISONE 5 MG TAB Take one po qod PREDNISONE 55440024016 No Longer Active Simon Castillo MD Active GLYBURIDE 5 MG TAB Take one by mouth daily GLYBURIDE 43980553990 No Longer Active Simon Castillo MD Active LEVAQUIN 750 MG TABS 1 po qod x 5 doses LEVOFLOXACIN 22661406590 No Longer Active Simon Castillo MD Active CETIRIZINE HCL 10 MG TABS 1 po qd as needed for allergies CETIRIZINE HCL 60370067525 No Longer Active Simon Castillo MD Active FISH OIL 1000 MG CPDR 1 pill by mouth twice daily for cholesterol OMEGA -3 FATTY ACIDS 82489662128 Active Simon Castillo MD Active BILBERRY CAPS 1 tab daily BILBERRY (VACCINIUM MYRTILLUS) CAPS 87165496658 Active Simon Castillo MD Active ATENOLOL 50 MG TABS Take one by mouth daily ATENOLOL 51314277835 No Longer Active Simon Castillo MD Active FLONASE 50 MCG/ACT SUSP 2 puffs in each nostril daily FLUTICASONE PROPIONATE 36549008423 No Longer Active Simon Castillo MD Active GLYBURIDE 5 MG TAB Take one by mouth daily GLYBURIDE 29810547985 No Longer Active Simon Castillo MD Active SYMBICORT 80-4.5 MCG/ACT AERO 2 puffs twice a day BUDESONIDE-FORMOTEROL FUMARATE 45882755556 No Longer Active Simon Castillo MD Active PREDNISONE 20 MG TAB 2 tabs daily for 4 days, 1 tab daily for 4 days, 1/2 tab daily for 4 days PREDNISONE 28040581245 No Longer Active Simon Castillo MD Active AMOXICILLIN 500 MG CAPS 2 po BID x 10 days AMOXICILLIN 44462909869 No Longer Active Simon Castillo MD Active METFORMIN HCL 1000 MG TABS 1 by mounth twice a day METFORMIN HCL 79697738193 No Longer Active Simon Castillo MD Active LUTEIN-ZEAXANTHIN 6-1 MG TABS Take 2 by mouth daily LUTEIN-ZEAXANTHIN 85007478694 Active Simon Castillo MD Active IBUPROFEN 800 MG TABS Take 1 tab every 6 hrs prn IBUPROFEN 08636584135 No Longer Active Simon Castillo MD Active GLYBURIDE 2.5 MG TABS Take one by mouth daily GLYBURIDE 34545002665 No Longer Active Simon Castillo MD Active LANCETS MISC 2 qd LANCETS 03755065337 Active Pamela Conde Active ACACIA CONTOUR TEST STRP Use with testing twice daily GLUCOSE BLOOD 69047178479 Active Simon Castillo MD Active ACACIA ASPIRIN 325 MG TABS Take one by mouth daily ASPIRIN 74179203817 Active Pamela Conde Active GLYBURIDE 2.5 MG TABS Take one by mouth daily GLYBURIDE 2.5 MG TABS 768370 GLYBURIDE Inactive PREDNISONE 20 MG TAB 2 tabs daily for 4 days, 1 tab daily for 4 days, 1/2 tab daily for 4 days PREDNISONE 20 MG TAB 765547 PREDNISONE Inactive SYMBICORT 80-4.5 MCG/ACT AERO 2 puffs twice a day SYMBICORT 80-4.5 MCG/ACT AERO BUDESONIDE-FORMOTEROL FUMARATE Inactive FLONASE 50 MCG/ACT SUSP 2 puffs in each nostril daily FLONASE 50 MCG/ACT SUSP 343184 FLUTICASONE PROPIONATE Inactive ATENOLOL 50 MG TABS Take one by mouth daily ATENOLOL 50 MG TABS 708879 ATENOLOL Inactive CETIRIZINE HCL 10 MG TABS 1 po qd as needed for allergies CETIRIZINE HCL 10 MG TABS 7599361 CETIRIZINE HCL Inactive LEVAQUIN 750 MG TABS 1 po qod x 5 doses LEVAQUIN 750 MG TABS 834225 LEVOFLOXACIN Inactive GLYBURIDE 5 MG TAB Take one by mouth daily GLYBURIDE 5 MG TAB 562586 GLYBURIDE Inactive PREDNISONE 5 MG TAB Take one po qod PREDNISONE 5 MG TAB 212486 PREDNISONE Inactive PREDNISONE 20 MG TAB 2 tabs daily for 5 days, then 1 daily for 5 days PREDNISONE 20 MG TAB 496340 PREDNISONE Inactive FLONASE 50 MCG/ACT SUSP 2 puffs in each nostril daily FLONASE 50 MCG/ACT SUSP 834313 FLUTICASONE PROPIONATE Inactive SYMBICORT 160-4.5 MCG/ACT AERO 2 puff BID SYMBICORT 160-4.5 MCG/ACT AERO BUDESONIDE-FORMOTEROL FUMARATE Inactive PREDNISONE 5 MG TABS 1 po qod PREDNISONE 5 MG TABS 466605 PREDNISONE Inactive PREDNISONE 20 MG TAB 1 tablet daily for airway inflammation 02/25 PREDNISONE 20 MG TAB 327415 PREDNISONE Inactive SULFASALAZINE 500 MG ORAL TBEC 2 tabs BID SULFASALAZINE 500 MG ORAL TBEC 203831 SULFASALAZINE Inactive LASIX 20 MG TAB 1 tablet by mouth daily x 2 days LASIX 20 MG TAB 888060 FUROSEMIDE Inactive AMOXICILLIN 500 MG CAPS 2 po BID x 10 days AMOXICILLIN 500 MG CAPS 183850 AMOXICILLIN Inactive GLYBURIDE 5 MG TAB Take one by mouth daily GLYBURIDE 5 MG TAB 459318 GLYBURIDE Inactive AZITHROMYCIN 250 MG TABS 2 po qd x 1 day, then 1 po qd x 4 days AZITHROMYCIN 250 MG TABS 9847383 AZITHROMYCIN Inactive PREDNISONE 20 MG TAB 2 tabs daily for 3 days, 1 tab daily for 3 days, 1/2 tab daily for 2 days PREDNISONE 20 MG TAB 147985 PREDNISONE Inactive PREDNISONE 20 MG TAB 2 tabs daily for 5 days, then 1 daily for 5 days, then 0.5 for 4 days PREDNISONE 20 MG TAB 256056 PREDNISONE Inactive AZITHROMYCIN 250 MG TABS 2 po qd x 1 day, then 1 po qd x 4 days AZITHROMYCIN 250 MG TABS 7120122 AZITHROMYCIN Inactive PREDNISONE 20 MG TAB 2 tabs daily for 3 days, 1 tab daily for 3 days, 1/2 tab daily for 2 days PREDNISONE 20 MG TAB 945202 PREDNISONE Inactive Immunizations Vaccine Administration Date Value [...] Panel - Chemistry sodium, serum 132 mmol/L 725-516 7299/10/26 carbon dioxide, venous blood 22.8 mmol/L 21.0-32.0 potassium, serum 5.4 mmol/L 3.5-5.2 chloride, serum 98 mmol/L 98-107 blood glucose 424 mg/dL 65-110 urea nitrogen, blood 40 mg/dL 7-18 creatinine, serum 2.26 mg/dL 0.55-1.30 alanine aminotransferase (SGPT), serum 29 U/L -78 aspartate aminotransferase (SGOT), serum 24 U/L 15-37 calcium, serum 8.6 mg/dL 8.5-10.1 bilirubin, serum, total 0.60 mg/dL 0.00-1.00 sodium, serum 137 mmol/L 304-935 9569/06/06 carbon dioxide, venous blood 24.9 mmol/L 21.0-32.0 [...] % 11.6-14.8 platelet count 210 10^3/MM^3 10*3/mm3 183-231 4443/10/26 leukocyte count, blood 10.3 10^3/MM^3 10*3/mm3 4.6-10.2 [...] Panel - Chemistry sodium, serum 139 mmol/L 503-970 8574/03/17 carbon dioxide, venous blood 29.0 mmol/L 21.0-32.0 [...] Rate - Chemistry sodium, serum 136 mmol/L 258-441 2309/09/18 carbon dioxide, venous blood 24.3 mmol/L 21.0-32.0 [...] HGBA1C - Chemistry sodium, serum 139 mmol/L 218-509 0454/07/09 potassium, serum 5.4 mmol/L 3.5-5.2 chloride, serum [...] 8.5 % 4.3-6.0 sodium, serum 137 mmol/L 998-270 2869/02/12 potassium, serum 5.1 mmol/L 3.5-5.2 chloride, serum 103 mmol/L 98-107 carbon dioxide, venous blood 24.4 mmol/L 21.0-32.0 blood glucose 261 mg/dL 65-110 calcium, serum 9.0 mg/dL 8.5-10.1 urea nitrogen, blood 44 mg/dL 7-18 creatinine, serum 2.37 mg/dL 0.55-1.30 Lab Report: Lipid Panel - Chemistry cholesterol, serum 139 mg/dL 959-807 6083/09/10 triglyceride, serum, fasting 176 mg/dL 30-200 HDL cholesterol, serum 45 mg/dL 32-96 LDL cholesterol, serum 59 mg/dL 0-130 Lab Report: MICROALBUMIN - Chemistry albumin/creatinine ratio, urine 30 - 300 mg/g mg/g{creat} 0-29 Lab Report: MICROALBUMIN - Lab microalbumin, urine 30 0-19 Lab Report: Uric Acid - Chemistry uric acid, serum 6.3 mg/dL 2.6-7.2 Encounters Code Encounter Date Provider Facility CPT-50378 Level 4 Est. Patient 11:51:23 CDT Simon Castillo MD [facility] CPT-85418 Level 4 Est. Patient 14:32:04 CDT Neto Oshea DO [facility] CPT-14506 Level 3 Est. Patient 08:41:43 CDT Giles Tatum [facility] CPT-83322 Level 3 Est. Patient 08:40:53 CDT Giles Tatum [facility] CPT-87697 Level 3 Est. Patient 08:36:52 CDT Giles Nashtico [facility] CPT-96127 Level 3 Est. Patient 09:08:44 CDT Giles Nashtico [facility] CPT-86134 Level 4 Est. Patient 09:17:32 [employer] Simon Castillo MD [facility] CPT-85753 Level 3 Est. Patient 11:22:22 [employer] Simon Castillo MD [facility] CPT-52947 Level 3 Est. Patient 09:02:14 CDT Simon Castillo MD [facility] CPT-09514 Level 4 Est. Patient 08:47:25 CDT Simon Castillo MD [facility] CPT-17442 Level 4 Est. Patient 10:17:25 CDT Simon Castillo MD [facility] CPT-35728 Level 4 Est. Patient 10:10:09 [employer] Simon Castillo MD [facility] CPT-34664 Level 4 Est. Patient 11:48:19 CDT Simon Castillo MD [facility] CPT-94255 Level 4 Est. Patient 08:59:29 CDT Simon Castillo MD [facility] CPT-11242 Level 4 Est. Patient 10:52:51 [employer] Simon Castillo MD [facility] CPT-86341 Level 4 Est. Patient 11:50:30 CDT Simon Castillo MD [facility] CPT-77745 Level 4 Est. Patient 09:54:46 CDT Simon Castillo MD [facility] CPT-15048 Level 3 Est. Patient 11:10:14 CDT Simon Castillo MD [facility] CPT-52255 Level 4 Est. Patient 09:44:02 CDT Simon Castillo MD [facility] CPT-14172 Level 3 Est. Patient 09:27:48 CDT Simon Castillo MD [facility] CPT-15840 Level 3 Est. Patient 09:58:06 [employer] Simon Castillo MD [facility] CPT-85518 Level 3 Est. Patient 09:51:35 CDT Simon Castillo MD [facility] Procedures Code Procedure Name Date Entry Date Standard Description CPT-G0438 Initial Annual Wellness Exam 08:57:30 CDT CPT-26187 Chest 2V Frontal and Lat - XRAY USE ONLY 09:00:14 CDT CPT-32450 Venipuncture Draw Fee 13:33:02 CDT CPT-64350 Bone Density 09:37:49 [employer] CPT-83587 Fluzone High Dose 17:20:42 CDT CPT-57227 Prevnar 13 17:20:42 CDT CPT-26718 Administration 2+ single or combination vaccines inc oral 17:20:42 CDT CPT-72668 Administration single or combination vaccine inc oral 17 :20:42 CDT CPT-41094 Hand comp min 3V 09:24:38 CDT CPT-67733 Venipuncture Draw Fee 08:07:29 [employer] CPT-33127 Venipuncture Draw Fee 09:02:51 [employer] CPT-78564 Venipuncture Draw Fee 12:45:08 [employer] CPT-37968 Venipuncture Draw Fee 09:25:31 CDT CPT-G0008 Administration of Influenza Virus Vaccine 14:41:29 CDT CPT-95651 Fluzone High-Dose Intramuscular Suspension 14:41:29 CDT CPT-Cryo Cryotherapy 11:48:20 CDT CPT-73756 EKG Trac and Interp 09:21:58 CDT CPT-89820 Chest 2V Frontal and Lat 09:21:58 CDT CPT-Cryo Cryotherapy 10:54:51 [employer] CPT-93358 Administration 2+ single or combination vaccines inc oral 10:42:19 CDT CPT-30741 Administration single or combination vaccine inc oral 10 :42:19 CDT CPT-32049 Pneumovax 10:42:19 CDT CPT-91066 Influenza High Dose age 65+ 10:42:19 CDT CPT-18171 Administration single or combination vaccine inc oral 13 :18:54 CDT CPT-83264 Influenza High Dose age 65+ 13:18:54 CDT CPT-04576 Venipuncture Draw Fee 11:53:16 CDT CPT-74577 LS spine comp w obliq 11:03:13 CDT CPT-Cryo Cryotherapy 08:27:16 [employer] CPT-91668 Administration single or combination vaccine inc oral 10 :56:34 CDT CPT-54286 Influenza High Dose age 65+ 10:56:34 CDT
--- OUTSIDE RECORDS SUMMARY | 2018-07-20 10:05 | XMS REPORT | Clinical Summary ---
Author Author Admin, E Organization [employer] Address Unknown Phone Unavailable Allergies, Adverse Reactions, [...] and lung ABDOMINAL TENDERNESS 789.60 Resolved Simon Casitllo MD Abdominal tenderness, unspecified site CHEST WALL [...] Simon Castillo MD Rheumatoid arthritis Steroid use, detention V58.65 Resolved Simon Castillo MD Long-term (current) [...] Castillo MD Rheumatoid arthritis Pharyngitis 462 Resolved iSmon Castillo MD Acute pharyngitis Dyspnea 786.09 Resolved [...] po BID x 10 days AMOXICILLIN-POT CLAVULANATE 02276511023 Active Simon Castillo MD Active PIOGLITAZONE HCL 30 MG ORAL TABS 1 po qd PIOGLITAZONE HCL 28389224242 Active Simon Castillo MD Active GLIMEPIRIDE 4 MG ORAL TABS 1 po BID GLIMEPIRIDE 60784746206 Active Simon Castillo MD Active ASPIRIN EC 81 MG ORAL TBEC 1 po qd ASPIRIN 74034158541 Active Simon Castillo MD Active CLOTRIMAZOLE 1 % EXT CREA Apply to affected area of feet twice daily PRN Rash CLOTRIMAZOLE 23276121668 No Longer Active Simon Castillo MD Active PREDNISONE 5 MG TAB 1 po BID PREDNISONE 76346503691 Active Simon Castillo MD Active FISH OIL 1000 MG CPDR 1 po BID OMEGA-3 FATTY ACIDS 67281408431 Active Simon Castillo MD Active LISINOPRIL 10 MG TABS 1 p qd LISINOPRIL 67391241039 Active Simon Castillo MD Active CLARITIN 10 MG TAB 1 tablet by mouth daily as needed for allergies LORATADINE 16355815936 No Longer Active Simon Castillo MD Active TRIAMCINOLONE ACETONIDE 0.1 % OINT Apply to affected areas TID for up to 2 weeks TRIAMCINOLONE ACETONIDE 32348115851 No Longer Active Simon Castillo MD Active LASIX 20 MG TAB 1 tablet by mouth daily x 2 days FUROSEMIDE 51849036094 No Longer Active Simon Castillo MD Active SULFASALAZINE 500 MG ORAL TBEC 2 tabs BID SULFASALAZINE 77557364327 No Longer Active Neto Oshea DO Active PREDNISONE 20 MG TAB 2 tabs daily for 3 days, 1 tab daily for 3 days, 1/2 tab daily for 2 days PREDNISONE 34610512885 No Longer Active Jillina Frazell [employer] Active PREDNISONE 20 MG TAB 1 tablet daily for airway inflammation 02/25 PREDNISONE 38850515249 No Longer Active Jillina Frazell [employer] Active AZITHROMYCIN 250 MG TABS 2 po qd x 1 day, then 1 po qd x 4 days AZITHROMYCIN 54069512825 No Longer Active Jillina Fraamayal [employer] Active HYDROCODONE-ACETAMINOPHEN 5-325 MG TABS 1 tab by mouth 8 hours as needed for pain HYDROCODONE-ACETAMINOPHEN 07906054113 Active Simon Castillo MD Active TRAMADOL HCL 50 MG TABS 1 po q6hr PRN Pain TRAMADOL HCL 92758014899 No Longer Active Simon Castillo MD Active PREDNISONE 5 MG TABS 1 po qod PREDNISONE 90321733050 No Longer Active Simon Castillo MD Active SYMBICORT 160-4.5 MCG/ACT AERO 2 puff BID BUDESONIDE- FORMOTEROL FUMARATE 07912534372 No Longer Active Simon Castillo MD Active FLONASE 50 MCG/ACT SUSP 2 puffs in each nostril daily FLUTICASONE PROPIONATE 06630956252 No Longer Active Simon Castillo MD Active PREDNISONE 20 MG TAB 2 tabs daily for 5 days, then 1 daily for 5 days PREDNISONE 38927684811 No Longer Active Simon Castillo MD Active PREDNISONE 20 MG TAB 2 tabs daily for 5 days, then 1 daily for 5 days, then 0.5 for 4 days PREDNISONE 63182228573 No Longer Active Simon Castillo MD Active PREDNISONE 20 MG TAB 2 tabs daily for 3 days, 1 tab daily for 3 days, 1/2 tab daily for 2 days PREDNISONE 65041543951 No Longer Active Simon Castillo MD Active AZITHROMYCIN 250 MG TABS 2 po qd x 1 day, then 1 po qd x 4 days AZITHROMYCIN 01387145630 No Longer Active Simon Castillo MD Active CARVEDILOL 6.25 MG TABS 1 po BID CARVEDILOL 00469428728 Active Simon Castillo MD Active LISINOPRIL-HYDROCHLOROTHIAZIDE 20-12.5 MG TABS 1/2 tab by mouth daily LISINOPRIL-HYDROCHLOROTHIAZIDE 50472917832 No Longer Active Simon Castillo MD Active TRAMADOL HCL 50 MG TABS 1-2 tablets every 6 hours as needed for pain TRAMADOL HCL 81074674233 Active Giles Tatum APRN Active PREDNISONE 5 MG TAB Take one po qod PREDNISONE 26955064651 No Longer Active Simon Castillo MD Active GLYBURIDE 5 MG TAB Take one by mouth daily GLYBURIDE 88833019046 No Longer Active Simon Castillo MD Active LEVAQUIN 750 MG TABS 1 po qod x 5 doses LEVOFLOXACIN 06402326953 No Longer Active Simon Castillo MD Active CETIRIZINE HCL 10 MG TABS 1 po qd as needed for allergies CETIRIZINE HCL 08607724289 No Longer Active Simon Castillo MD Active BILBERRY CAPS 1 tab daily BILBERRY (VACCINIUM MYRTILLUS) CAPS 60531619013 Active Simon Castillo MD Active ATENOLOL 50 MG TABS Take one by mouth daily ATENOLOL 29331935624 No Longer Active Simon Castillo MD Active FLONASE 50 MCG/ACT SUSP 2 puffs in each nostril daily FLUTICASONE PROPIONATE 42372621041 No Longer Active Simon Castillo MD Active GLYBURIDE 5 MG TAB Take one by mouth daily GLYBURIDE 52957851215 No Longer Active Simon Castillo MD Active SYMBICORT 80-4.5 MCG/ACT AERO 2 puffs twice a day BUDESONIDE-FORMOTEROL FUMARATE 21189431520 No Longer Active Simon Castillo MD Active PREDNISONE 20 MG TAB 2 tabs daily for 4 days, 1 tab daily for 4 days, 1/2 tab daily for 4 days PREDNISONE 74424761213 No Longer Active Simon Castillo MD Active AMOXICILLIN 500 MG CAPS 2 po BID x 10 days AMOXICILLIN 82738630941 No Longer Active Simon Castillo MD Active METFORMIN HCL 1000 MG TABS 1 by mounth twice a day METFORMIN HCL 25370403447 No Longer Active Simon Castillo MD Active LUTEIN-ZEAXANTHIN 6-1 MG TABS Take 2 by mouth daily LUTEIN-ZEAXANTHIN 49104149838 Active Simon Castillo MD Active IBUPROFEN 800 MG TABS Take 1 tab every 6 hrs prn IBUPROFEN 24639519878 No Longer Active Simon Castillo MD Active GLYBURIDE 2.5 MG TABS Take one by mouth daily GLYBURIDE 28699965982 No Longer Active Simon Castillo MD Active LANCETS MISC 2 qd LANCETS 44796126943 Active Pamela Conde Active ACACIA CONTOUR TEST STRP Use with testing twice daily GLUCOSE BLOOD 62897923808 Active Simon Castillo MD Active GLYBURIDE 2.5 MG TABS Take one by mouth daily GLYBURIDE 2.5 MG TABS 093471 GLYBURIDE Inactive PREDNISONE 20 MG TAB 2 tabs daily for 4 days, 1 tab daily for 4 days, 1/2 tab daily for 4 days PREDNISONE 20 MG TAB 943116 PREDNISONE Inactive SYMBICORT 80-4.5 MCG/ACT AERO 2 puffs twice a day SYMBICORT 80-4.5 MCG/ACT AERO BUDESONIDE-FORMOTEROL FUMARATE Inactive FLONASE 50 MCG/ACT SUSP 2 puffs in each nostril daily FLONASE 50 MCG/ACT SUSP 9227137 FLUTICASONE PROPIONATE Inactive ATENOLOL 50 MG TABS Take one by mouth daily ATENOLOL 50 MG TABS 400219 ATENOLOL Inactive CETIRIZINE HCL 10 MG TABS 1 po qd as needed for allergies CETIRIZINE HCL 10 MG TABS 0089980 CETIRIZINE HCL Inactive LEVAQUIN 750 MG TABS 1 po qod x 5 doses LEVAQUIN 750 MG TABS 220844 LEVOFLOXACIN Inactive GLYBURIDE 5 MG TAB Take one by mouth daily GLYBURIDE 5 MG TAB 543337 GLYBURIDE Inactive PREDNISONE 5 MG TAB Take one po qod PREDNISONE 5 MG TAB 569921 PREDNISONE Inactive PREDNISONE 20 MG TAB 2 tabs daily for 5 days, then 1 daily for 5 days PREDNISONE 20 MG TAB 274101 PREDNISONE Inactive FLONASE 50 MCG/ACT SUSP 2 puffs in each nostril daily FLONASE 50 MCG/ACT SUSP 6878550 FLUTICASONE PROPIONATE Inactive SYMBICORT 160-4.5 MCG/ACT AERO 2 puff BID SYMBICORT 160-4.5 MCG/ACT AERO BUDESONIDE-FORMOTEROL FUMARATE Inactive PREDNISONE 5 MG TABS 1 po qod PREDNISONE 5 MG TABS 532620 PREDNISONE Inactive PREDNISONE 20 MG TAB 1 tablet daily for airway inflammation 02/25 PREDNISONE 20 MG TAB 397536 PREDNISONE Inactive SULFASALAZINE 500 MG ORAL TBEC 2 tabs BID SULFASALAZINE 500 MG ORAL TBEC 635378 SULFASALAZINE Inactive LASIX 20 MG TAB 1 tablet by mouth daily x 2 days LASIX 20 MG TAB 053194 FUROSEMIDE Inactive CLARITIN 10 MG TAB 1 tablet by mouth daily as needed for allergies CLARITIN 10 MG TAB 092188 LORATADINE Inactive CLOTRIMAZOLE 1 % EXT CREA Apply to affected area of feet twice daily PRN Rash CLOTRIMAZOLE 1 % EXT CREA 171266 CLOTRIMAZOLE Inactive AMOXICILLIN 500 MG CAPS 2 po BID x 10 days AMOXICILLIN 500 MG CAPS 036421 AMOXICILLIN Inactive GLYBURIDE 5 MG TAB Take one by mouth daily GLYBURIDE 5 MG TAB 657974 GLYBURIDE Inactive AZITHROMYCIN 250 MG TABS 2 po qd x 1 day, then 1 po qd x 4 days AZITHROMYCIN 250 MG TABS 5258727 AZITHROMYCIN Inactive PREDNISONE 20 MG TAB 2 tabs daily for 3 days, 1 tab daily for 3 days, 1/2 tab daily for 2 days PREDNISONE 20 MG TAB 841031 PREDNISONE Inactive PREDNISONE 20 MG TAB 2 tabs daily for 5 days, then 1 daily for 5 days, then 0.5 for 4 days PREDNISONE 20 MG TAB 158732 PREDNISONE Inactive AZITHROMYCIN 250 MG TABS 2 po qd x 1 day, then 1 po qd x 4 days AZITHROMYCIN 250 MG TABS 1695598 AZITHROMYCIN Inactive PREDNISONE 20 MG TAB 2 tabs daily for 3 days, 1 tab daily for 3 days, 1/2 tab daily for 2 days PREDNISONE 20 MG TAB 309146 PREDNISONE Inactive TRIAMCINOLONE ACETONIDE 0.1 % OINT Apply to affected areas TID for up to 2 weeks TRIAMCINOLONE ACETONIDE 0.1 % OINT 2377125 TRIAMCINOLONE ACETONIDE Inactive Immunizations Vaccine Administration Date [...] Panel - Chemistry cholesterol, serum 126 mg/dL 653-767 1256/02/07 triglyceride, serum, fasting 83 mg/dL 30-200 HDL cholesterol, serum 70 mg/dL 32-96 LDL cholesterol, serum 39 mg/dL 0-130 hemoglobin A1C, blood, as % of total hemoglobin 8.3 % 4.3-6.0 sodium, serum 141 mmol/L 864-523 8497/02/07 carbon dioxide, venous blood 26.0 mmol/L 21.0-32.0 [...] 0.00-1.00 Encounters Code Encounter Date Provider Facility CPT-49532 Level 4 Est. Patient 08:48:38 CDT Simon Castillo MD [facility] CPT-94106 Level 4 Est. Patient 09:54:08 CDT Simon Castillo [facility] CPT-02972 Level 4 Est. Patient 16:11:23 CDT Simon Castillo MD [facility] CPT-73211 Level 4 Est. Patient 09:29:28 [employer] WORK[employer] Simon Castillo MD [facility] CPT-74425 Level 3 Est. Patient 09:18:25 CDT Simon Castillo MD [facility] CPT-11411 Level 4 Est. Patient 11:51:23 CDT Simon Castillo MD [facility] CPT-43127 Level 4 Est. Patient 14:32:04 CDT Neto Oshea DO [facility] CPT-16625 Level 3 Est. Patient 08:41:43 CDT Giles Tatum [facility] CPT-48032 Level 3 Est. Patient 08:40:53 CDT Giles Salcidol [facility] CPT-94953 Level 3 Est. Patient 08:36:52 CDT Giles Salcidol [facility] CPT-90302 Level 3 Est. Patient 09:08:44 CDT Giles Salcidol [facility] CPT-61561 Level 4 Est. Patient 09:17:32 [employer] WORKER Simon Castillo MD [facility] CPT-33409 Level 3 Est. Patient 11:22:22 MEND WORKER Simon Castillo MD [facility] CPT-53163 Level 3 Est. Patient 09:02:14 CDT Simon Castillo MD [facility] CPT-79462 Level 4 Est. Patient 08:47:25 CDT Simon Castillo MD [facility] CPT-17744 Level 4 Est. Patient 10:17:25 CDT Simon Castillo MD [facility] CPT-07637 Level 4 Est. Patient 10:10:09 [employer]END WORKER Simon Castillo MD [facility] CPT-33793 Level 4 Est. Patient 11:48:19 CDT Simon Castillo MD [facility] CPT-13631 Level 4 Est. Patient 08:59:29 CDT Simon Castillo MD [facility] CPT-15486 Level 4 Est. Patient 10:52:51 [employer]END WORKER Simon Castillo MD [facility] CPT-64628 Level 4 Est. Patient 11:50:30 CDT Simon Castillo MD [facility] CPT-65041 Level 4 Est. Patient 09:54:46 CDT Simon Castillo MD [facility] CPT-03717 Level 3 Est. Patient 11:10:14 CDT Simon Castillo MD [facility] CPT-04157 Level 4 Est. Patient 09:44:02 CDT Simon Castillo MD [facility] CPT-63826 Level 3 Est. Patient 09:27:48 CDT Simon Castillo MD [facility] CPT-53938 Level 3 Est. Patient 09:58:06 MEND WORKER Simon Castillo MD [facility] CPT-98902 Level 3 Est. Patient 09:51:35 CDT Simon Castillo MD [facility] Procedures Code Procedure Name Date Entry Date Standard Description CPT-G0439 Subsequent Annual Wellness Exam 09:41:17 CDT CPT-98082 Lipid - LAB USE ONLY 17:15:33 CDT CPT-53800 HGBA1C - LAB USE ONLY 17:15:33 CDT CPT-48007 CMP - LAB USE ONLY 17:15:33 CDT CPT-08366 Venipuncture Draw Fee 17:15:33 CDT CPT-[facility] Transitional Care Mgmt-High 11:01:28 MEND WORKER CPT-69328 First Vx - Ix admin for Medicare patients 17:33:39 CDT CPT-58480 Fluzone High-Dose Intramuscular Suspension 17:33:39 CDT CPT-G0438 Initial Annual Wellness Exam 08:57:30 CDT CPT-33358 Chest 2V Frontal and Lat - XRAY USE ONLY 09:00:14 CDT CPT-79123 Venipuncture Draw Fee 13:33:02 CDT CPT-66873 Bone Density 09:37:49 MEND WORKER CPT-81463 Fluzone High Dose 17:20:42 CDT CPT-04829 Prevnar 13 17:20:42 CDT CPT-22957 Administration 2+ single or combination vaccines inc oral 17:20:42 CDT CPT-62973 Administration single or combination vaccine inc oral 17 :20:42 CDT CPT-47939 Hand comp min 3V 09:24:38 CDT CPT-30384 Venipuncture Draw Fee 08:07:29 MEND WORKER CPT-96440 Venipuncture Draw Fee 09:02:51 MEND WORKER CPT-44260 Venipuncture Draw Fee 12:45:08 MEND WORKER CPT-36856 Venipuncture Draw Fee 09:25:31 CDT CPT-G0008 Administration of Influenza Virus Vaccine 14:41:29 CDT CPT-39120 Fluzone High-Dose Intramuscular Suspension 14:41:29 CDT CPT-Cryo Cryotherapy 11:48:20 CDT CPT-94403 EKG Trac and Interp 09:21:58 CDT CPT-04056 Chest 2V Frontal and Lat 09:21:58 CDT CPT-Cryo Cryotherapy 10:54:51 MEND WORKER CPT-09480 Administration 2+ single or combination vaccines inc oral 10:42:19 CDT CPT-62046 Administration single or combination vaccine inc oral 10 :42:19 CDT CPT-46944 Pneumovax 10:42:19 CDT CPT-60553 Influenza High Dose age 65+ 10:42:19 CDT CPT-89918 Administration single or combination vaccine inc oral 13 :18:54 CDT CPT-94531 Influenza High Dose age 65+ 13:18:54 CDT CPT-93803 Venipuncture Draw Fee 11:53:16 CDT CPT-74283 LS spine comp w obliq 11:03:13 CDT CPT-Cryo Cryotherapy 08:27:16 MEND WORKER CPT-34021 Administration single or combination vaccine inc oral 10 :56:34 CDT CPT-08959 Influenza High Dose age 65+ 10:56:34 CDT
[2018-07-20 10:14] LABS: INR 1.4 (0.8-1.4); PROTHROMBIN TIME PATIENT 17.1 SEC (12.2-14.7)
[2018-07-20 10:19] LABS: ALANINE AMINOTRANSFERASE 13 U/L (0-55); ALKALINE PHOSPHATASE 75 U/L (40-136); BILIRUBIN,TOTAL 2.4 MG/DL (0.1-1.0); BUN/CREATININE RATIO 20; CALCIUM 9.6 MG/DL (8.5-10.1); CARBON DIOXIDE 24 MMOL/L (21-32); CHLORIDE 96 MMOL/L (98-107); CREATININE SERUM 3.24 MG/DL (0.60-1.30); GFR ESTIMATED 18; GLUCOSE 233 MG/DL (70-105); POTASSIUM 3.5 MMOL/L (3.6-5.0); SODIUM 134 MMOL/L (135-145); TOTAL PROTEIN 7.2 GM/DL (6.4-8.2)
[2018-07-20 10:22] LABS: BAND NEUTROPHILS 12 %; EOSINOPHILS % (MANUAL) 1 %; LYMPHOCYTES % (MANUAL) 7 %; MONOCYTES % (MANUAL) 4 %; NEUTROPHILS % (MANUAL) 76 %; RBC MORPH NORMAL
[2018-07-20 10:41] LABS: TSH (THYROID ANALYZER) 3.24 UIU/ML (0.35-4.94)
--- NOTE | 2018-07-20 10:44 | Diagnostic Imaging Report ---
Indication: Body aches and pains and flulike symptoms. Time of exam 10:58 AM Correlation is made with prior chest from 03/31/2018. The heart size is stable. Right sided dialysis line has been removed. There is some mild elevation of the right hemidiaphragm. There is some mild basilar scarring or subsegmental atelectasis. Mid and upper lung ruano are clear. No effusion or pneumothorax is seen. There is no evidence of congestive failure. IMPRESSION: Minimal bibasilar subsegmental atelectasis or scarring. Aeration has improved to the right base since the prior chest radiograph from 03/31/2018. Dictated by: Dictated on workstation # [id number]
[2018-07-20 10:58] LABS: BILIRUBIN,URINE NEGATIVE (NEGATIVE); CLARITY,URINE VERY CLOUDY; COLOR,URINE AMBER; GLUCOSE, URINE (UA) NEGATIVE (NEGATIVE); KETONES,URINE NEGATIVE (NEGATIVE); LEUKOCYTE ESTERASE ,URINE 3+ (NEGATIVE); NITRITE,URINE NEGATIVE (NEGATIVE); PH,URINE 5 (5-9); PROTEIN,URINE 3+ (NEGATIVE); UROBILINOGEN,URINE NORMAL (NORMAL)
[2018-07-20] MEDS ORDERED: OSELTAMIVIR 30 MG (TAMIFLU) CAPSULE PO SCH (11:11)
[2018-07-20 11:12] LABS: BACTERIA,URINE MODERATE /HPF; SQUAMOUS EPITHELIAL CELL,UR 0-2 /HPF; WBC,URINE TNTC /HPF
[2018-07-20] MEDS ORDERED: CEFEPIME INJECTION 2,000 MG in NS (IVPB) 50 ML IV ONE (11:15)
--- NOTE | 2018-07-20 11:57 | ED General ---
General Chief Complaint: -Male Stated Complaint: FLU SYMPTOMS;UTI Nursing Triage Note: ARRIVED VIA WC FROM HOME. COMPLAINS OF KIDNEY PAIN AND NOT PEEING LIKE HE SHOULD AND HAVING BODY ACHES ALL OVER STARTING YESTERDAY. Nursing Sepsis Screen: No Definite Risk Source of Information: Patient, Old Records Exam Limitations: No Limitations History of Present Illness Date Seen by Provider: Jul 20, 2018 Time Seen by Provider: 09:40 Initial Comments This 88-year-old gentleman presents to the emergency room with complaints of generalized myalgias and chills. He was not feeling well last night and symptoms escalated this morning. He did receive an influenza vaccine. He is demonstrating a productive cough which he states is chronic. He is also having difficulty with urinating. He has a little difficulty starting his stream and states that he has little output. He does have chronic renal failure. He also has an inflamed lesion on the right forearm that has been draining. Patient is also noted to be in atrial fibrillation with mild tachycardia. He is anticoagulated. Dr. Regan Clark is his chinese instructor. Dr. Clark (woman) is his market researcher. [facility]. Patient was previously on dialysis but does not receive dialysis therapy now. Allergies and Home Medications Allergies Coded Allergies: No Known Drug Allergies (Unverified , 03/31/18) Home Medications Acetaminophen 325 Mg Tablet, 650 MG PO Q4H PRN for PAIN-MILD, (Reported) TAKES 2 (325MG) TABLETS Apixaban 2.5 Mg Tablet, 2.5 MG PO BID, (Reported) Bumetanide 2 Mg Tablet, 2 MG PO BID, (Reported) Calcitriol 0.25 Mcg Capsule, 0.25 MCG PO MoWeFr, (Reported) Ergocalciferol (Vitamin D2) 50,000 Unit Capsule, 50,000 UNIT PO Tu, (Reported) Glimepiride 4 Mg Tablet, 4 MG PO BID, (Reported) Insulin Determir 1,000 Units/10 Ml Soln, 15 UNITS SQ BID, (Reported) Metoprolol Succinate 50 Mg Tab.er.24h, 50 MG PO DAILY, (Reported) Prednisone 5 Mg Tablet, 5 MG PO BID, (Reported) Tamsulosin HCl 0.4 Mg Cap.er.24h, 0.4 MG PO DAILY, (Reported) Patient Home Medication List Home Medication List Reviewed: Yes Review of Systems Review of Systems Constitutional: see HPI EENTM: no symptoms reported Respiratory: see HPI Cardiovascular: see HPI Gastrointestinal: no symptoms reported Genitourinary: see HPI Musculoskeletal: see HPI Skin: no symptoms reported Psychiatric/Neurological: No Symptoms Reported Hematologic/Lymphatic: No Symptoms Reported Past Rijrpzv-Yzlpxt-Gbwzfm Hx Patient Social History Alcohol Use: Occasionally Uses Number of Drinks Today: AA Alcohol Beverage of Choice: Beer Recreational Drug Use: No Smoking Status: Former Smoker Type Used: Cigars, Cigarettes Former Smoker, Quit: Apr 01, 1978 Recent Foreign Travel: No Contact w/Someone Who Travel: No Recent Infectious Disease Expo: No Recent Hopitalizations: Yes Seasonal Allergies Seasonal Allergies: No Past Medical History Surgeries: Yes (hernia, port in right upper chest) Respiratory: No Cardiac: Yes Hypertension Neurological: No Genitourinary: No Benign Prostatic Hyperpl, Kidney Infection, Dialysis Gastrointestinal: Yes Abdominal Hernia, Gastroesophageal Reflux Musculoskeletal: Yes Arthritis, Rheumatoid Arthritis Endocrine: Yes Diabetes, Non-Insulin dep HEENT: Yes Macular Degeneration Cancer: No Psychosocial: No Integumentary: Yes Psoriasis Blood Disorders: No Adverse Reaction/Blood Tranf: No Physical Exam-Suspected Sepsis Physical Exam Vital Signs Vital Signs - First Documented 07/20/18 07/20/18 07/20/18 09:20 09:25 12:25 Temp 99.0 Pulse 113 Resp 16 B/P (MAP) 102/63 (76) Pulse Ox 94 O2 Delivery Room Air O2 Flow Rate 2.00 Capillary Refill : Less Than 3 Seconds Blood Pressure Mean: 76 Height, Weight, BMI Height: 5'7.00" Weight: 200lbs. 0.0oz. 90.377309tb; 32.9 BMI Method:Stated General Appearance: No Apparent Distress, WD/WN HEENT: PERRL/EOMI, Normal ENT Inspection Neck: Normal Inspection Respiratory: Lungs Clear, Normal Breath Sounds, No Accessory Muscle Use, No Respiratory Distress, Other (Productive cough noted) Cardiovascular: No Edema, Systolic Murmur, Irregularly Irregular Gastrointestinal: Normal Bowel Sounds, Non Tender, Soft Extremity: Normal Inspection, No Pedal Edema Neurologic/Psychiatric: Alert, Oriented x3, No Motor/Sensory Deficits, Normal Mood/Affect, care management associate II-XII Norm as Tested Skin: normal color, warm/dry Focused Exam Lactate Level 07/20/18 09:49: Lactic Acid Level 2.44*H 10/29/18 11:48: Lactic Acid Level 0.96 Lactic Acid Level Progress/Results/Core Measures Suspected Sepsis Recent Fever Within 48 Hours: No Infection Criteria Present: Suspected New Infection New/Unexplained Altered Menta: No Sepsis Screen: No Definite Risk SIRS Temperature:99.0 Pulse: 113 Respiratory Rate: Laboratory Tests 07/20/18 09:49: White Blood Count 16.8H 07/21/18 08:55: White Blood Count 12.3H Blood Pressure 102 /63 Mean: 76 07/20/18 09:49: Lactic Acid Level 2.44*H 07/20/18 11:48: Lactic Acid Level 0.96 Laboratory Tests 07/20/18 09:49: Creatinine 3.24H, INR Comment 1.4, Platelet Count 194, Total Bilirubin 2.4H 07/21/18 08:55: Creatinine 2.91H, Platelet Count 169, Total Bilirubin 1.2H Results/Orders Lab Results Laboratory Tests Test 07/20/18 09:49 07/20/18 10:52 07/20/18 11:48 07/20/18 16:44 Range/Units White Blood Count 16.8 H 4.3-11.0 10^3/uL Red Blood Count 4.41 4.35-5.85 10^6/uL Hemoglobin 12.8 L 13.3-17.7 G/DL Hematocrit 40 40-54 % Mean Corpuscular Volume 91 80-99 FL Mean Corpuscular Hemoglobin 29 25-34 PG Mean Corpuscular Hemoglobin Concent 32 32-36 G/DL Red Cell Distribution Width 14.4 10.0-14.5 % Platelet Count 194 130-400 10^3/uL Mean Platelet Volume 9.8 7.4-10.4 FL Neutrophils (%) (Auto) 86 H 42-75 % Lymphocytes (%) (Auto) 7 L 12-44 % Monocytes (%) (Auto) 6 0-12 % Eosinophils (%) (Auto) 0 0-10 % Basophils (%) (Auto) 0 0-10 % Neutrophils # (Auto) 14.5 H 1.8-7.8 X 10^3 Lymphocytes # (Auto) 1.3 1.0-4.0 X 10^3 Monocytes # (Auto) 1.0 0.0-1.0 X 10^3 Eosinophils # (Auto) 0.1 0.0-0.3 10^3/uL Basophils # (Auto) 0.0 0.0-0.1 10^3/uL Neutrophils % (Manual) 76 % Lymphocytes % (Manual) 7 % Monocytes % (Manual) 4 % Eosinophils % (Manual) 1 % Band Neutrophils 12 % Blood Morphology Comment NORMAL Prothrombin Time 17.1 H 12.2-14.7 SEC INR Comment 1.4 0.8-1.4 Activated Partial Thromboplast Time 34 24-35 SEC Sodium Level 134 L 135-145 MMOL/L Potassium Level 3.5 L 3.6-5.0 MMOL/L Chloride Level 96 L 98-107 MMOL/L Carbon Dioxide Level 24 21-32 MMOL/L Anion Gap 14 5-14 MMOL/L Blood Urea Nitrogen 64 H 7-18 MG/DL Creatinine 3.24 H 0.60-1.30 MG/DL Estimat Glomerular Filtration Rate 18 BUN/Creatinine Ratio 20 Glucose Level 233 H 70-105 MG/DL Lactic Acid Level 2.44 *H 0.96 0.50-2.00 MMOL/L Calcium Level 9.6 8.5-10.1 MG/DL Corrected Calcium 9.6 8.5-10.1 MG/DL Total Bilirubin 2.4 H 0.1-1.0 MG/DL Aspartate Amino Transf (AST/SGOT) 16 5-34 U/L Alanine Aminotransferase (ALT/SGPT) 13 0-55 U/L Alkaline Phosphatase 75 40-136 U/L Troponin I < 0.30 <0.30 NG/ML Total Protein 7.2 6.4-8.2 GM/DL Albumin 4.0 3.2-4.5 GM/DL TSH Herman Testing 3.24 0.35-4.94 UIU/ML Urine Color MOHSEN H Urine Clarity VERY CLOUDY H Urine pH 5 5-9 Urine Specific [place] 1.020 1.016-1.022 Urine Protein 3+ H NEGATIVE Urine Glucose (UA) NEGATIVE NEGATIVE Urine Ketones NEGATIVE NEGATIVE Urine Nitrite NEGATIVE NEGATIVE Urine Bilirubin NEGATIVE NEGATIVE Urine Urobilinogen NORMAL NORMAL MG/DL Urine Leukocyte Esterase 3+ H NEGATIVE Urine RBC (Auto) 2+ H NEGATIVE Urine RBC NONE /HPF Urine WBC TNTC H /HPF Urine Squamous Epithelial Cells 0-2 /HPF Urine Crystals NONE /LPF Urine Bacteria MODERATE H /HPF Urine Casts NONE /LPF Urine Mucus NEGATIVE /LPF Urine Culture Indicated NO Glucometer 296 H 70-110 MG/DL Test 07/20/18 21:04 07/21/18 08:55 07/21/18 11:05 07/21/18 12:20 Range/Units Glucometer 276 H 268 H 70-110 MG/DL White Blood Count 12.3 H 4.3-11.0 10^3/uL Red Blood Count 3.72 L 4.35-5.85 10^6/uL Hemoglobin 10.9 L 13.3-17.7 G/DL Hematocrit 33 L 40-54 % Mean Corpuscular Volume 90 80-99 FL Mean Corpuscular Hemoglobin 29 25-34 PG Mean Corpuscular Hemoglobin Concent 33 32-36 G/DL Red Cell Distribution Width 14.6 H 10.0-14.5 % Platelet Count 169 130-400 10^3/uL Mean Platelet Volume 9.7 7.4-10.4 FL Neutrophils (%) (Auto) 85 H 42-75 % Lymphocytes (%) (Auto) 10 L 12-44 % Monocytes (%) (Auto) 5 0-12 % Eosinophils (%) (Auto) 1 0-10 % Basophils (%) (Auto) 0 0-10 % Neutrophils # (Auto) 10.4 H 1.8-7.8 X 10^3 Lymphocytes # (Auto) 1.2 1.0-4.0 X 10^3 Monocytes # (Auto) 0.6 0.0-1.0 X 10^3 Eosinophils # (Auto) 0.1 0.0-0.3 10^3/uL Basophils # (Auto) 0.0 0.0-0.1 10^3/uL Sodium Level 134 L 135-145 MMOL/L Potassium Level 3.4 L 3.6-5.0 MMOL/L Chloride Level 99 98-107 MMOL/L Carbon Dioxide Level 22 21-32 MMOL/L Anion Gap 13 5-14 MMOL/L Blood Urea Nitrogen 63 H 7-18 MG/DL Creatinine 2.91 H 0.60-1.30 MG/DL Estimat Glomerular Filtration Rate 21 BUN/Creatinine Ratio 22 Glucose Level 280 H 70-105 MG/DL Calcium Level 8.9 8.5-10.1 MG/DL Corrected Calcium 9.4 8.5-10.1 MG/DL Total Bilirubin 1.2 H 0.1-1.0 MG/DL Aspartate Amino Transf (AST/SGOT) 15 5-34 U/L Alanine Aminotransferase (ALT/SGPT) 12 0-55 U/L Alkaline Phosphatase 65 40-136 U/L Total Protein 6.4 6.4-8.2 GM/DL Albumin 3.4 3.2-4.5 GM/DL Vancomycin Level Trough 13.6 10.0-20.0 UG/ML Test 07/21/18 15:50 07/21/18 19:53 Range/Units Glucometer 290 H 248 H 70-110 MG/DL Micro Results Microbiology 07/20/18 Blood Culture - Preliminary, Resulted No growth 07/20/18 Blood Culture - Preliminary, Resulted Positive; See Report 07/20/18 Influenza Types A,B Antigen (HUMBLE) - Final, Complete 07/20/18 Urine Culture - Preliminary, Resulted Citrobacter Freundii 07/20/18 Gram Stain - Final, Resulted 07/20/18 Wound Culture - Preliminary, Resulted Staphylococcus aureus My Orders Orders - TORIN OLMOS MD Cbc With Automated Diff (07/20/18 09:51) Comprehensive Metabolic Panel (07/20/18 09:51) Blood Culture (07/20/18 09:51) Sputum Culture (07/20/18 09:51) Urinalysis (07/20/18 09:51) Urine Culture (07/20/18 09:51) Protime With Inr (07/20/18 09:51) Partial Thromboplastin Time (07/20/18 09:51) Saline Lock/Iv-Start (07/20/18 09:51) Saline Lock/Iv-Start (07/20/18 09:51) Vital Signs Adult Sepsis Patie Q15M (07/20/18 09:51) O2 (07/20/18 09:51) Remove Rings In Anticipation O (07/20/18 09:51) Lactic Acid Analyzer (07/20/18 09:51) Chest Pa/Lat (2 View) (07/20/18 09:51) Ekg Tracing (07/20/18 09:51) Monitor-Rhythm Ecg Trace Only (07/20/18 09:51) Thyroid Analyzer (07/20/18 09:51) Troponin I (07/20/18 09:51) Ns Iv 1000 Ml (Sodium Chloride 0.9%) (07/20/18 09:51) Wound Culture (07/20/18 09:51) Influenza A And B Antigens (07/20/18 09:57) Manual Differential (07/20/18 09:49) Cefepime Injection (Maxipime Injection) (07/20/18 11:15) Oseltamivir 30 Mg Capsule (Tamiflu 30 Mg (07/20/18 11:11) Medications Given in ED Vital Signs/I&O 07/21/18 07/21/18 07/21/18 07/21/18 08:38 08:45 12:00 12:35 Temp 97.4 Pulse 92 Resp 18 B/P (MAP) 138/70 (92) Pulse Ox 95 95 O2 Delivery Room Air Room Air Room Air Room Air 07/21/18 07/21/18 07/21/18 13:00 16:36 16:52 Temp 97.6 Pulse 75 76 Resp 20 B/P (MAP) 131/61 (84) Pulse Ox 95 O2 Delivery Room Air Room Air Capillary Refill : Less Than 3 Seconds Blood Pressure Mean: 76 Progress Note : Progress Note Septic workup was pursued. Pancultures were obtained including culture of the drainage from the right forearm abscess. Patient also tested positive for influenza B. Broad-spectrum antibiotics were initiated with cefepime. Cefepime with vancomycin was the combination selected due to potential for multiple sites of infection. UA was pending at the time of initial antibiotic treatment. Tamiflu was also started in the ER. Tachycardia and chills are likely secondary to influenza, but sepsis cannot be ruled out. Heart rate did improve with IV hydration. Case was reviewed with Dr. Wilde who requested consultation with surgery, cardiology, and intensive care. ECG Initial ECG Impression Date: Jul 20, 2018 Initial ECG Impression Time: 09:56 Initial ECG Rate: 126 Initial ECG Rhythm: A Fib/Flutter Initial ECG Impression: Atrial Fibrillation w/RVR Comment Atrial fibrillation with RVR. No acute ST elevation or depression. Diagnostic Imaging Diagonstic Imaging: Xray Plain Films/CT/US/NM/MRI: chest Comments NAME: JEANMARIE CABRERA [facility] REC#: [id number] PT STATUS: ADM IN : 1930 PHYSICIAN: TORIN OLMOS MD ADMIT DATE: 07/20/18/ICU Signed Date of Exam: 07/20/18 CHEST PA/LAT (2 VIEW) Indication: Body aches and pains and flulike symptoms. Time of exam 10:58 AM Correlation is made with prior chest from 03/31/2018. The heart size is stable. Right sided dialysis line has been removed. There is some mild elevation of the right hemidiaphragm. There is some mild basilar scarring or subsegmental atelectasis. Mid and upper lung ruano are clear. No effusion or pneumothorax is seen. There is no evidence of congestive failure. IMPRESSION: Minimal bibasilar subsegmental atelectasis or scarring. Aeration has improved to the right base since the prior chest radiograph from 03/31/2018. Dictated by: Dictated on workstation # [id number] Dict: 07/20/18 1040 Trans: 07/20/18 1554 Interpreted by: JESSE MCLAUGHLIN MD Electronically signed by: JESSE MCLAUGHLIN MD 07/20/18 1554 Departure Communication (Admissions) Time/Spoke to Admitting Phy: 10:55 Dr. Bocanegra at 11:08 Dr. Clark at 11:40 Dr. Calle at 11:55 Impression Primary Impression: Sepsis Qualified Codes: A41.9 - Sepsis, unspecified organism Additional Impressions: Abscess of right arm Influenza B Atrial fibrillation Qualified Codes: I48.0 - Paroxysmal atrial fibrillation Chronic renal failure Qualified Codes: N18.9 - Chronic kidney disease, unspecified Disposition: ADMITTED INPATIENT Condition: Improved Admissions Decision to Admit Reason: Admit from ER (General) Decision to Admit/Date: Jul 20, 2018 Time/Decision to Admit Time: 11:00 Departure-Patient Inst. Referrals: ZECHARIAH ADAMS MD (PCP) Primary Care Physician Copy Copies To 1: ZECHARIAH ADAMS MD, JOSHUA T MD Jul 20, 2018 11:57
[2018-07-20] MEDS ORDERED: CATHETER FLUSH 10 ML SYR IV PRN (12:45)
[2018-07-20] MEDS ORDERED: VANCOMYCIN 1,750 MG/NS 500 ML IVPB IV NR ×2 (12:46)
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
--- OUTSIDE RECORDS SUMMARY | 2018-07-20 12:47 | XMS REPORT | Clinical Summary ---
Author Author Admin, RAFFI Organization [facility] Address Unknown Phone Allergies, Adverse Reactions, [...] 1 po qod x 5 doses LEVOFLOXACIN 05370656041 Active Simon Castillo MD Active CETIRIZINE HCL 10 MG TABS 1 po qd as needed for allergies CETIRIZINE HCL 97160795628 No Longer Active Simon Castillo MD Active FISH OIL 1000 MG CPDR 1 pill by mouth twice daily for cholesterol OMEGA -3 FATTY ACIDS 41258986558 Active Simon Castillo MD Active BILBERRY CAPS 1 tab daily BILBERRY (VACCINIUM MYRTILLUS) CAPS 94293428853 Active Simon Castillo MD Active PREDNISONE 5 MG TAB Take one po qod PREDNISONE 49781228152 Active Simon Castillo MD Active ATENOLOL 50 MG TABS Take one by mouth daily ATENOLOL 06571226894 No Longer Active Simon Castillo MD Active GLYBURIDE 5 MG TAB Take one by mouth daily GLYBURIDE 59145994905 Active Jami Dickey Active FLONASE 50 MCG/ACT SUSP 2 puffs in each nostril daily FLUTICASONE PROPIONATE 47705143870 No Longer Active Simon Castillo MD Active GLYBURIDE 5 MG TAB Take one by mouth daily GLYBURIDE 99572215487 No Longer Active Simon Castillo MD Active SYMBICORT 80-4.5 MCG/ACT AERO 2 puffs twice a day BUDESONIDE-FORMOTEROL FUMARATE 63237729079 No Longer Active Simon Castillo MD Active PREDNISONE 20 MG TAB 2 tabs daily for 4 days, 1 tab daily for 4 days, 1/2 tab daily for 4 days PREDNISONE 62729028469 No Longer Active Simon Castillo MD Active AMOXICILLIN 500 MG CAPS 2 po BID x 10 days AMOXICILLIN 36502754377 No Longer Active Simon Castillo MD Active METFORMIN HCL 1000 MG TABS 1 by mount twice a day METFORMIN HCL 90953399322 Active Simon Castillo MD Active LUTEIN-ZEAXANTHIN 6-1 MG TABS Take 2 by mouth daily LUTEIN-ZEAXANTHIN 77717621086 Active Simon Castillo MD Active IBUPROFEN 800 MG TABS Take 1 tab every 6 hrs prn IBUPROFEN 37205628786 Active Simon Castillo MD Active LISINOPRIL-HYDROCHLOROTHIAZIDE 20-12.5 MG TABS 1 tab by mouth daily LISINOPRIL-HYDROCHLOROTHIAZIDE 07564545802 Active Simon Castillo MD Active GLYBURIDE 2.5 MG TABS Take one by mouth daily GLYBURIDE 88371701865 No Longer Active Simon Castillo MD Active LANCETS MISC 2 qd LANCETS 08698474272 Active Pamela Conde Active logtrust CONTOUR TEST STRP Use with testing twice daily GLUCOSE BLOOD 02508525980 Active Pamela Conde Active ACACIA ASPIRIN 325 MG TABS Take one by mouth daily ASPIRIN 53473372034 Active Pamela Conde Active GLYBURIDE 2.5 MG TABS Take one by mouth daily GLYBURIDE 2.5 MG TABS 173256 GLYBURIDE Inactive PREDNISONE 20 MG TAB 2 tabs daily for 4 days, 1 tab daily for 4 days, 1/2 tab daily for 4 days PREDNISONE 20 MG TAB 661406 PREDNISONE Inactive SYMBICORT 80-4.5 MCG/ACT AERO 2 puffs twice a day SYMBICORT 80-4.5 MCG/ACT AERO BUDESONIDE-FORMOTEROL FUMARATE Inactive FLONASE 50 MCG/ACT SUSP 2 puffs in each nostril daily FLONASE 50 MCG/ACT SUSP 026877 FLUTICASONE PROPIONATE Inactive ATENOLOL 50 MG TABS Take one by mouth daily ATENOLOL 50 MG TABS 215442 ATENOLOL Inactive CETIRIZINE HCL 10 MG TABS 1 po qd as needed for allergies CETIRIZINE HCL 10 MG TABS 3361502 CETIRIZINE HCL Inactive AMOXICILLIN 500 MG CAPS 2 po BID x 10 days AMOXICILLIN 500 MG CAPS 440823 AMOXICILLIN Inactive GLYBURIDE 5 MG TAB Take one by mouth daily GLYBURIDE 5 MG TAB 194762 GLYBURIDE Inactive Immunizations Vaccine Administration Date Value [...] Panel - Chemistry sodium, serum 137 mmol/L 422-044 8935/06/26 potassium, serum 5.7 mmol/L 3.5-5.2 chloride, serum 104 mmol/L 98-107 carbon dioxide, venous blood 21.2 mmol/L 21.0-32.0 blood glucose 129 mg/dL 65-110 calcium, serum 9.0 mg/dL 8.5-10.1 urea nitrogen, blood 67 mg/dL 7-18 creatinine, serum 3.30 mg/dL 0.60-1.30 Lab Report: CBC W/DIFF, Comp. Metabolic Panel - Chemistry sodium, serum 137 mmol/L 379-606 7320/06/18 potassium, serum 5.3 mmol/L 3.5-5.2 chloride, serum [...] (AUTO) - Chemistry sodium, serum 141 mmol/L 245-536 1637/07/29 potassium, serum 5.7 mmol/L 3.5-5.2 chloride, serum [...] Metabolic Panel, Prostatic Specifi ... - Chemistry calcium, serum 9.2 mg/dL 8.5-10.1 bilirubin, serum, total 0.70 mg/dL 0.00-1.00 prostate specific antigen 1.73 ng/mL 0.00-4.00 hemoglobin A1C, blood, as % of total hemoglobin 7.2 % 4.3-6.0 sodium, serum 137 mmol/L 809-036 1626/01/23 potassium, serum 5.2 mmol/L 3.5-5.2 chloride, serum 102 mmol/L 98-107 carbon dioxide, venous blood 22.9 mmol/L 21.0-32.0 blood glucose 142 mg/dL 65-110 urea nitrogen, blood 43 mg/dL 7-18 creatinine, serum 2.20 mg/dL 0.60-1.30 alanine aminotransferase (SGPT), serum 26 U/L 12-78 aspartate aminotransferase (SGOT), serum 19 U/L 15-37 alkaline phosphatase, serum 109 U/L 50-136 Lab Report: HGBA1C, CBC W/DIFF, Comp. Metabolic [...] mg/dL Encounters Code Encounter Date Provider Facility CPT-10458 Level 4 Est. Patient 08:59:29 CDT Simon Castillo MD [facility] CPT-12539 Level 4 Est. Patient 10:52:51 CATH LAB Simon Castillo MD [facility] CPT-43621 Level 4 Est. Patient 11:50:30 CDT Simon Castillo MD [facility] CPT-14304 Level 4 Est. Patient 09:54:46 CDT Simon Castillo MD [facility] CPT-40770 Level 3 Est. Patient 11:10:14 CDT Simon Castillo MD [facility] CPT-30606 Level 4 Est. Patient 09:44:02 CDT Simon Castillo MD [facility] CPT-31960 Level 3 Est. Patient 09:27:48 CDT Simon Castillo MD [facility] CPT-97036 Level 3 Est. Patient 09:58:06 CATH LAB Simon Castillo MD [facility] CPT-34742 Level 3 Est. Patient 09:51:35 CDT Simon Castillo MD [facility] Procedures Code Procedure Name Date Entry Date Standard Description CPT-43718 EKG Trac and Interp 09:21:58 CDT CPT-09084 Chest 2V Frontal and Lat 09:21:58 CDT CPT-Cryo Cryotherapy 10:54:51 CATH LAB CPT-68116 Administration 2+ single or combination vaccines inc oral 10:42:19 CDT CPT-64925 Administration single or combination vaccine inc oral 10 :42:19 CDT CPT-35014 Pneumovax 10:42:19 CDT CPT-15847 Influenza High Dose age 65+ 10:42:19 CDT CPT-76502 Administration single or combination vaccine inc oral 13 :18:54 CDT CPT-29798 Influenza High Dose age 65+ 13:18:54 CDT CPT-21697 Venipuncture Draw Fee 11:53:16 CDT CPT-94087 LS spine comp w obliq 11:03:13 CDT CPT-Cryo Cryotherapy 08:27:16 CATH LAB CPT-62715 Administration single or combination vaccine inc oral 10 :56:34 CDT CPT-06699 Influenza High Dose age 65+ 10:56:34 CDT
--- OUTSIDE RECORDS SUMMARY | 2018-07-20 12:47 | XMS REPORT | Clinical Summary ---
Author Author Admin, RAFFI Organization [facility] Address Unknown Phone Unavailable Allergies, [...] 5 MG TABS 1 po qod PREDNISONE 37599945136 Active Simon Castillo MD Active TRAMADOL HCL 50 MG TABS 1-2 tablets every 6 hours as needed for pain TRAMADOL HCL 92740137320 Active Simon Castillo MD Active PREDNISONE 5 MG TAB Take one po qod PREDNISONE 12456770846 No Longer Active Simon Castillo MD Active GLYBURIDE 5 MG TAB Take one by mouth daily GLYBURIDE 12265285364 No Longer Active Simon Castillo MD Active LEVAQUIN 750 MG TABS 1 po qod x 5 doses LEVOFLOXACIN 99508378862 No Longer Active Simon Castillo MD Active CETIRIZINE HCL 10 MG TABS 1 po qd as needed for allergies CETIRIZINE HCL 86018536021 No Longer Active Simon Castillo MD Active FISH OIL 1000 MG CPDR 1 pill by mouth twice daily for cholesterol OMEGA -3 FATTY ACIDS 32814510619 Active Simon Castillo MD Active BILBERRY CAPS 1 tab daily BILBERRY (VACCINIUM MYRTILLUS) CAPS 28172988359 Active Simon Castillo MD Active ATENOLOL 50 MG TABS Take one by mouth daily ATENOLOL 50727554901 No Longer Active Simon Castillo MD Active FLONASE 50 MCG/ACT SUSP 2 puffs in each nostril daily FLUTICASONE PROPIONATE 75934255246 No Longer Active Simon Castillo MD Active GLYBURIDE 5 MG TAB Take one by mouth daily GLYBURIDE 77355550648 No Longer Active Simon Castillo MD Active SYMBICORT 80-4.5 MCG/ACT AERO 2 puffs twice a day BUDESONIDE-FORMOTEROL FUMARATE 72689821754 No Longer Active Simon Castillo MD Active PREDNISONE 20 MG TAB 2 tabs daily for 4 days, 1 tab daily for 4 days, 1/2 tab daily for 4 days PREDNISONE 15310907270 No Longer Active Simon Castillo MD Active AMOXICILLIN 500 MG CAPS 2 po BID x 10 days AMOXICILLIN 21542934232 No Longer Active Simon Castillo MD Active METFORMIN HCL 1000 MG TABS 1 by mounth twice a day METFORMIN HCL 83289045486 Active Simon Castillo MD Active LUTEIN-ZEAXANTHIN 6-1 MG TABS Take 2 by mouth daily LUTEIN-ZEAXANTHIN 81136736301 Active Simon Castillo MD Active IBUPROFEN 800 MG TABS Take 1 tab every 6 hrs prn IBUPROFEN 91014502311 No Longer Active Simon Castillo MD Active LISINOPRIL-HYDROCHLOROTHIAZIDE 20-12.5 MG TABS 1 tab by mouth daily LISINOPRIL-HYDROCHLOROTHIAZIDE 21523349538 Active Simon Castillo MD Active GLYBURIDE 2.5 MG TABS Take one by mouth daily GLYBURIDE 31187597930 No Longer Active Simon Castillo MD Active LANCETS MISC 2 qd LANCETS 95255889036 Active Pamela Conde Active ACACIA CONTOUR TEST STRP Use with testing twice daily GLUCOSE BLOOD 61856837182 Active Pamela Conde Active ACACIA ASPIRIN 325 MG TABS Take one by mouth daily ASPIRIN 03181159050 Active Pamela Conde Active GLYBURIDE 2.5 MG TABS Take one by mouth daily GLYBURIDE 2.5 MG TABS 722607 GLYBURIDE Inactive PREDNISONE 20 MG TAB 2 tabs daily for 4 days, 1 tab daily for 4 days, 1/2 tab daily for 4 days PREDNISONE 20 MG TAB 849050 PREDNISONE Inactive SYMBICORT 80-4.5 MCG/ACT AERO 2 puffs twice a day SYMBICORT 80-4.5 MCG/ACT AERO BUDESONIDE-FORMOTEROL FUMARATE Inactive FLONASE 50 MCG/ACT SUSP 2 puffs in each nostril daily FLONASE 50 MCG/ACT SUSP 549710 FLUTICASONE PROPIONATE Inactive ATENOLOL 50 MG TABS Take one by mouth daily ATENOLOL 50 MG TABS 243608 ATENOLOL Inactive CETIRIZINE HCL 10 MG TABS 1 po qd as needed for allergies CETIRIZINE HCL 10 MG TABS 0709914 CETIRIZINE HCL Inactive LEVAQUIN 750 MG TABS 1 po qod x 5 doses LEVAQUIN 750 MG TABS 538029 LEVOFLOXACIN Inactive GLYBURIDE 5 MG TAB Take one by mouth daily GLYBURIDE 5 MG TAB 016130 GLYBURIDE Inactive PREDNISONE 5 MG TAB Take one po qod PREDNISONE 5 MG TAB 805839 PREDNISONE Inactive AMOXICILLIN 500 MG CAPS 2 po BID x 10 days AMOXICILLIN 500 MG CAPS 661289 AMOXICILLIN Inactive GLYBURIDE 5 MG TAB Take one by mouth daily GLYBURIDE 5 MG TAB 666068 GLYBURIDE Inactive Immunizations Vaccine Administration Date Value [...] Panel - Chemistry sodium, serum 137 mmol/L 093-278 1256/06/26 potassium, serum 5.7 mmol/L 3.5-5.2 chloride, serum 104 mmol/L 98-107 carbon dioxide, venous blood 21.2 mmol/L 21.0-32.0 blood glucose 129 mg/dL 65-110 calcium, serum 9.0 mg/dL 8.5-10.1 urea nitrogen, blood 67 mg/dL 7-18 creatinine, serum 3.30 mg/dL 0.60-1.30 sodium, serum 140 mmol/L 798-155 6643/07/10 potassium, serum 5.3 mmol/L 3.5-5.2 chloride, serum 105 mmol/L 98-107 carbon dioxide, venous blood 25.5 mmol/L 21.0-32.0 blood glucose 119 mg/dL 65-110 calcium, serum 8.9 mg/dL 8.5-10.1 urea nitrogen, blood 44 mg/dL 7-18 creatinine, serum 2.50 mg/dL 0.60-1.30 Lab Report: CBC W/DIFF, Comp. Metabolic Panel - Chemistry sodium, serum 137 mmol/L 379-430 1600/06/18 potassium, serum 5.3 mmol/L 3.5-5.2 chloride, serum [...] 6.9 % 4.3-6.0 sodium, serum 137 mmol/L 211-156 3536/08/21 potassium, serum 5.3 mmol/L 3.5-5.2 chloride, serum [...] 7.2 % 4.3-6.0 sodium, serum 137 mmol/L 523-273 2209/01/23 potassium, serum 5.2 mmol/L 3.5-5.2 chloride, serum [...] mg/dL Encounters Code Encounter Date Provider Facility CPT-83331 Level 4 Est. Patient 11:48:19 CDT Simon Castillo MD [facility] CPT-69900 Level 4 Est. Patient 08:59:29 CDT Simon Castillo MD [facility] CPT-18865 Level 4 Est. Patient 10:52:51 [employer] Simon Castillo MD [facility] CPT-49372 Level 4 Est. Patient 11:50:30 CDT Simon Castillo MD [facility] CPT-96755 Level 4 Est. Patient 09:54:46 CDT Simon Castillo MD [facility] CPT-55396 Level 3 Est. Patient 11:10:14 CDT Simon Castillo MD [facility] CPT-18298 Level 4 Est. Patient 09:44:02 CDT Simon Castillo MD [facility] CPT-97304 Level 3 Est. Patient 09:27:48 CDT Simon Castillo MD [facility] CPT-90145 Level 3 Est. Patient 09:58:06 [employer] Simon Castillo MD [facility] CPT-82007 Level 3 Est. Patient 09:51:35 CDT Simon Castillo MD [facility] Procedures Code Procedure Name Date Entry Date Standard Description CPT-G0008 Administration of Influenza Virus Vaccine 14:41:29 CDT CPT-19846 Fluzone High-Dose Intramuscular Suspension 14:41:29 CDT CPT-Cryo Cryotherapy 11:48:20 CDT CPT-34657 EKG Trac and Interp 09:21:58 CDT CPT-39990 Chest 2V Frontal and Lat 09:21:58 CDT CPT-Cryo Cryotherapy 10:54:51 [employer] CPT-19375 Administration 2+ single or combination vaccines inc oral 10:42:19 CDT CPT-46347 Administration single or combination vaccine inc oral 10 :42:19 CDT CPT-55427 Pneumovax 10:42:19 CDT CPT-09459 Influenza High Dose age 65+ 10:42:19 CDT CPT-28021 Administration single or combination vaccine inc oral 13 :18:54 CDT CPT-73358 Influenza High Dose age 65+ 13:18:54 CDT CPT-72291 Venipuncture Draw Fee 11:53:16 CDT CPT-93763 LS spine comp w obliq 11:03:13 CDT CPT-Cryo Cryotherapy 08:27:16 [employer] CPT-39351 Administration single or combination vaccine inc oral 10 :56:34 CDT CPT-01904 Influenza High Dose age 65+ 10:56:34 CDT
--- OUTSIDE RECORDS SUMMARY | 2018-07-20 12:48 | XMS REPORT | Clinical Summary ---
Author Author Admin, RAFFI Organization [facility] Address Unknown Phone Unavailable Allergies, Adverse Reactions, [...] hours as needed for pain TRAMADOL HCL 36474822375 Active Simon Castillo MD Active PREDNISONE 5 MG TAB Take one po qod PREDNISONE 45156781560 No Longer Active Simon Castillo MD Active GLYBURIDE 5 MG TAB Take one by mouth daily GLYBURIDE 40309768549 No Longer Active Simon Castillo MD Active LEVAQUIN 750 MG TABS 1 po qod x 5 doses LEVOFLOXACIN 50387927391 No Longer Active Simon Castillo MD Active CETIRIZINE HCL 10 MG TABS 1 po qd as needed for allergies CETIRIZINE HCL 88518614012 No Longer Active Simon Castillo MD Active FISH OIL 1000 MG CPDR 1 pill by mouth twice daily for cholesterol OMEGA -3 FATTY ACIDS 48936090473 Active Simon Castillo MD Active BILBERRY CAPS 1 tab daily BILBERRY (VACCINIUM MYRTILLUS) CAPS 93969606625 Active Simon Castillo MD Active ATENOLOL 50 MG TABS Take one by mouth daily ATENOLOL 29896323209 No Longer Active Simon Castillo MD Active FLONASE 50 MCG/ACT SUSP 2 puffs in each nostril daily FLUTICASONE PROPIONATE 99731282996 No Longer Active Simon Castillo MD Active GLYBURIDE 5 MG TAB Take one by mouth daily GLYBURIDE 51928357137 No Longer Active Simon Castillo MD Active SYMBICORT 80-4.5 MCG/ACT AERO 2 puffs twice a day BUDESONIDE-FORMOTEROL FUMARATE 07653349092 No Longer Active Simon Castillo MD Active PREDNISONE 20 MG TAB 2 tabs daily for 4 days, 1 tab daily for 4 days, 1/2 tab daily for 4 days PREDNISONE 53917756283 No Longer Active Simon Castillo MD Active AMOXICILLIN 500 MG CAPS 2 po BID x 10 days AMOXICILLIN 97967789395 No Longer Active Simon Castillo MD Active METFORMIN HCL 1000 MG TABS 1 by mounth twice a day METFORMIN HCL 59377046261 Active Simon Castillo MD Active LUTEIN-ZEAXANTHIN 6-1 MG TABS Take 2 by mouth daily LUTEIN-ZEAXANTHIN 69832512554 Active Simon Castillo MD Active IBUPROFEN 800 MG TABS Take 1 tab every 6 hrs prn IBUPROFEN 26768267515 No Longer Active Simon Castillo MD Active LISINOPRIL-HYDROCHLOROTHIAZIDE 20-12.5 MG TABS 1 tab by mouth daily LISINOPRIL-HYDROCHLOROTHIAZIDE 01352392035 Active Simon Castillo MD Active GLYBURIDE 2.5 MG TABS Take one by mouth daily GLYBURIDE 88031718216 No Longer Active Simon Castillo MD Active LANCETS MISC 2 qd LANCETS 77910013281 Active Pamela Conde Active ACACIA CONTOUR TEST STRP Use with testing twice daily GLUCOSE BLOOD 24442782328 Active Pamela Conde Active ACACIA ASPIRIN 325 MG TABS Take one by mouth daily ASPIRIN 81637842824 Active Pamela Conde Active GLYBURIDE 2.5 MG TABS Take one by mouth daily GLYBURIDE 2.5 MG TABS 050445 GLYBURIDE Inactive PREDNISONE 20 MG TAB 2 tabs daily for 4 days, 1 tab daily for 4 days, 1/2 tab daily for 4 days PREDNISONE 20 MG TAB 697144 PREDNISONE Inactive SYMBICORT 80-4.5 MCG/ACT AERO 2 puffs twice a day SYMBICORT 80-4.5 MCG/ACT AERO BUDESONIDE-FORMOTEROL FUMARATE Inactive FLONASE 50 MCG/ACT SUSP 2 puffs in each nostril daily FLONASE 50 MCG/ACT SUSP 340540 FLUTICASONE PROPIONATE Inactive ATENOLOL 50 MG TABS Take one by mouth daily ATENOLOL 50 MG TABS 671911 ATENOLOL Inactive CETIRIZINE HCL 10 MG TABS 1 po qd as needed for allergies CETIRIZINE HCL 10 MG TABS 0779576 CETIRIZINE HCL Inactive LEVAQUIN 750 MG TABS 1 po qod x 5 doses LEVAQUIN 750 MG TABS 957328 LEVOFLOXACIN Inactive GLYBURIDE 5 MG TAB Take one by mouth daily GLYBURIDE 5 MG TAB 457658 GLYBURIDE Inactive PREDNISONE 5 MG TAB Take one po qod PREDNISONE 5 MG TAB 549393 PREDNISONE Inactive AMOXICILLIN 500 MG CAPS 2 po BID x 10 days AMOXICILLIN 500 MG CAPS 285592 AMOXICILLIN Inactive GLYBURIDE 5 MG TAB Take one by mouth daily GLYBURIDE 5 MG TAB 260321 GLYBURIDE Inactive Immunizations Vaccine Administration Date Value [...] Panel - Chemistry sodium, serum 137 mmol/L 679-811 6269/06/26 potassium, serum 5.7 mmol/L 3.5-5.2 chloride, serum 104 mmol/L 98-107 carbon dioxide, venous blood 21.2 mmol/L 21.0-32.0 blood glucose 129 mg/dL 65-110 calcium, serum 9.0 mg/dL 8.5-10.1 urea nitrogen, blood 67 mg/dL 7-18 creatinine, serum 3.30 mg/dL 0.60-1.30 sodium, serum 140 mmol/L 544-942 9037/07/10 potassium, serum 5.3 mmol/L 3.5-5.2 chloride, serum 105 mmol/L 98-107 carbon dioxide, venous blood 25.5 mmol/L 21.0-32.0 blood glucose 119 mg/dL 65-110 calcium, serum 8.9 mg/dL 8.5-10.1 urea nitrogen, blood 44 mg/dL 7-18 creatinine, serum 2.50 mg/dL 0.60-1.30 Lab Report: CBC W/DIFF, Comp. Metabolic Panel - Chemistry sodium, serum 137 mmol/L 746-659 9149/06/18 potassium, serum 5.3 mmol/L 3.5-5.2 chloride, serum [...] 7.2 % 4.3-6.0 sodium, serum 137 mmol/L 081-967 0673/01/23 potassium, serum 5.2 mmol/L 3.5-5.2 chloride, serum [...] mg/dL Encounters Code Encounter Date Provider Facility CPT-66107 Level 4 Est. Patient 11:48:19 CDT Simon Castillo MD [facility] CPT-58483 Level 4 Est. Patient 08:59:29 CDT Simon Castillo MD [facility] CPT-64287 Level 4 Est. Patient 10:52:51 [employer] Simon Castillo MD [facility] CPT-41208 Level 4 Est. Patient 11:50:30 CDT Simon Castillo MD [facility] CPT-47983 Level 4 Est. Patient 09:54:46 CDT Simon Castillo MD [facility] CPT-92980 Level 3 Est. Patient 11:10:14 CDT Simon Castillo MD [facility] CPT-35442 Level 4 Est. Patient 09:44:02 CDT Simon Castillo MD [facility] CPT-03245 Level 3 Est. Patient 09:27:48 CDT Simon Castillo MD [facility] CPT-07633 Level 3 Est. Patient 09:58:06 [employer] Simon Castillo MD [facility] CPT-06673 Level 3 Est. Patient 09:51:35 CDT Simon Castillo MD [facility] Procedures Code Procedure Name Date Entry Date Standard Description CPT-Cryo Cryotherapy 11:48:20 CDT CPT-80019 EKG Trac and Interp 09:21:58 CDT CPT-81362 Chest 2V Frontal and Lat 09:21:58 CDT CPT-Cryo Cryotherapy 10:54:51 [employer] CPT-17303 Administration 2+ single or combination vaccines inc oral 10:42:19 CDT CPT-19288 Administration single or combination vaccine inc oral 10 :42:19 CDT CPT-75929 Pneumovax 10:42:19 CDT CPT-46195 Influenza High Dose age 65+ 10:42:19 CDT CPT-03992 Administration single or combination vaccine inc oral 13 :18:54 CDT CPT-05289 Influenza High Dose age 65+ 13:18:54 CDT CPT-96294 Venipuncture Draw Fee 11:53:16 CDT CPT-60020 LS spine comp w obliq 11:03:13 CDT CPT-Cryo Cryotherapy 08:27:16 [employer] CPT-43639 Administration single or combination vaccine inc oral 10 :56:34 CDT CPT-50193 Influenza High Dose age 65+ 10:56:34 CDT
--- OUTSIDE RECORDS SUMMARY | 2018-07-20 12:49 | XMS REPORT | Clinical Summary ---
[...] 5 MG TABS 1 po qod PREDNISONE 25599931523 Active Simon Castillo MD Active TRAMADOL HCL 50 MG TABS 1-2 tablets every 6 hours as needed for pain TRAMADOL HCL 94634085351 Active Simon Castillo MD Active PREDNISONE 5 MG TAB Take one po qod PREDNISONE 69966453733 No Longer Active Simon Castillo MD Active GLYBURIDE 5 MG TAB Take one by mouth daily GLYBURIDE 63065057917 No Longer Active Simon Castillo MD Active LEVAQUIN 750 MG TABS 1 po qod x 5 doses LEVOFLOXACIN 25687365507 No Longer Active Simon Castillo MD Active CETIRIZINE HCL 10 MG TABS 1 po qd as needed for allergies CETIRIZINE HCL 08547258692 No Longer Active Simon Castillo MD Active FISH OIL 1000 MG CPDR 1 pill by mouth twice daily for cholesterol OMEGA -3 FATTY ACIDS 35617565704 Active Simon Castillo MD Active BILBERRY CAPS 1 tab daily BILBERRY (VACCINIUM MYRTILLUS) CAPS 62860928047 Active Simon Castillo MD Active ATENOLOL 50 MG TABS Take one by mouth daily ATENOLOL 32837034086 No Longer Active Simon Castillo MD Active FLONASE 50 MCG/ACT SUSP 2 puffs in each nostril daily FLUTICASONE PROPIONATE 44629484857 No Longer Active Simon Castillo MD Active GLYBURIDE 5 MG TAB Take one by mouth daily GLYBURIDE 30814514314 No Longer Active Simon Castillo MD Active SYMBICORT 80-4.5 MCG/ACT AERO 2 puffs twice a day BUDESONIDE-FORMOTEROL FUMARATE 96640728560 No Longer Active Simon Castillo MD Active PREDNISONE 20 MG TAB 2 tabs daily for 4 days, 1 tab daily for 4 days, 1/2 tab daily for 4 days PREDNISONE 82353308317 No Longer Active Simon Castillo MD Active AMOXICILLIN 500 MG CAPS 2 po BID x 10 days AMOXICILLIN 58429210344 No Longer Active Simon Castillo MD Active METFORMIN HCL 1000 MG TABS 1 by mounth twice a day METFORMIN HCL 59661444452 Active Simon Castillo MD Active LUTEIN-ZEAXANTHIN 6-1 MG TABS Take 2 by mouth daily LUTEIN-ZEAXANTHIN 43308720248 Active Simon Castillo MD Active IBUPROFEN 800 MG TABS Take 1 tab every 6 hrs prn IBUPROFEN 95847861090 No Longer Active Simon Castillo MD Active LISINOPRIL-HYDROCHLOROTHIAZIDE 20-12.5 MG TABS 1 tab by mouth daily LISINOPRIL-HYDROCHLOROTHIAZIDE 08858131412 Active Simon Castillo MD Active GLYBURIDE 2.5 MG TABS Take one by mouth daily GLYBURIDE 12937278173 No Longer Active Simon Castillo MD Active LANCETS MISC 2 qd LANCETS 95764115189 Active Pamela Coned Active ACACIA CONTOUR TEST STRP Use with testing twice daily GLUCOSE BLOOD 86561144712 Active Pamela Conde Active ACACIA ASPIRIN 325 MG TABS Take one by mouth daily ASPIRIN 42374419063 Active Pamela Conde Active GLYBURIDE 2.5 MG TABS Take one by mouth daily GLYBURIDE 2.5 MG TABS 690687 GLYBURIDE Inactive PREDNISONE 20 MG TAB 2 tabs daily for 4 days, 1 tab daily for 4 days, 1/2 tab daily for 4 days PREDNISONE 20 MG TAB 631925 PREDNISONE Inactive SYMBICORT 80-4.5 MCG/ACT AERO 2 puffs twice a day SYMBICORT 80-4.5 MCG/ACT AERO BUDESONIDE-FORMOTEROL FUMARATE Inactive FLONASE 50 MCG/ACT SUSP 2 puffs in each nostril daily FLONASE 50 MCG/ACT SUSP 475961 FLUTICASONE PROPIONATE Inactive ATENOLOL 50 MG TABS Take one by mouth daily ATENOLOL 50 MG TABS 810769 ATENOLOL Inactive CETIRIZINE HCL 10 MG TABS 1 po qd as needed for allergies CETIRIZINE HCL 10 MG TABS 2091023 CETIRIZINE HCL Inactive LEVAQUIN 750 MG TABS 1 po qod x 5 doses LEVAQUIN 750 MG TABS 335880 LEVOFLOXACIN Inactive GLYBURIDE 5 MG TAB Take one by mouth daily GLYBURIDE 5 MG TAB 046122 GLYBURIDE Inactive PREDNISONE 5 MG TAB Take one po qod PREDNISONE 5 MG TAB 169301 PREDNISONE Inactive AMOXICILLIN 500 MG CAPS 2 po BID x 10 days AMOXICILLIN 500 MG CAPS 525946 AMOXICILLIN Inactive GLYBURIDE 5 MG TAB Take one by mouth daily GLYBURIDE 5 MG TAB 037011 GLYBURIDE Inactive Immunizations Vaccine Administration Date Value [...] Panel - Chemistry sodium, serum 137 mmol/L 249-316 1793/06/26 potassium, serum 5.7 mmol/L 3.5-5.2 chloride, serum 104 mmol/L 98-107 carbon dioxide, venous blood 21.2 mmol/L 21.0-32.0 blood glucose 129 mg/dL 65-110 calcium, serum 9.0 mg/dL 8.5-10.1 urea nitrogen, blood 67 mg/dL 7-18 creatinine, serum 3.30 mg/dL 0.60-1.30 sodium, serum 140 mmol/L 434-427 8004/07/10 potassium, serum 5.3 mmol/L 3.5-5.2 chloride, serum 105 mmol/L 98-107 carbon dioxide, venous blood 25.5 mmol/L 21.0-32.0 blood glucose 119 mg/dL 65-110 calcium, serum 8.9 mg/dL 8.5-10.1 urea nitrogen, blood 44 mg/dL 7-18 creatinine, serum 2.50 mg/dL 0.60-1.30 Lab Report: CBC W/DIFF, Comp. Metabolic Panel - Chemistry sodium, serum 137 mmol/L 976-867 3262/06/18 potassium, serum 5.3 mmol/L 3.5-5.2 chloride, serum [...] Panel - Chemistry sodium, serum 137 mmol/L 417-578 5867/10/14 potassium, serum 5.6 mmol/L 3.5-5.2 chloride, serum [...] count 214 10^3/MM^3 10*3/mm3 142-424 Lab Report: HGBA1C - Chemistry hemoglobin A1C, blood, as % of total hemoglobin 7.8 % 4.3-6.0 Lab Report: HGBA1C, Basic Metabolic Panel - Chemistry hemoglobin A1C, blood, as % of total hemoglobin 6.9 % 4.3-6.0 sodium, serum 137 mmol/L 336-437 6507/08/21 potassium, serum 5.3 mmol/L 3.5-5.2 chloride, serum [...] 7.2 % 4.3-6.0 sodium, serum 137 mmol/L 974-085 5453/01/23 potassium, serum 5.2 mmol/L 3.5-5.2 chloride, serum [...] Lab Report: UADIP W/MICRO, AUTO - Urinalysis pH, urine, semiquantitative 5.5 5.0-8.5 specific gravity, urine 1.010 1.000-1.030 appearance, urine Clear Clear urine color Yellow Colorless;Lightyellow;Straw;Yellow urobilinogen, urine, semiquantitative (dipstick) 0.2 Normal leukocyte esterase, urine, by dipstick Negative Negative nitrite, urine, semiquantitative Negative Negative glucose, urine, semiquantitative Negative Negative ketones, urine, by test strip Negative Negative bilirubin, urine Negative Negative Office Visit: 1 month F/U [...] mg/dL Encounters Code Encounter Date Provider Facility CPT-82823 Level 4 Est. Patient 11:48:19 CDT Simon Castillo MD [facility] CPT-54525 Level 4 Est. Patient 08:59:29 CDT Simon Castillo MD [facility] CPT-65972 Level 4 Est. Patient 10:52:51 GROCERY BAGGER Simon Castillo MD [facility] CPT-86037 Level 4 Est. Patient 11:50:30 CDT Simon Castillo MD [facility] CPT-86833 Level 4 Est. Patient 09:54:46 CDT Simon Castillo MD [facility] CPT-73783 Level 3 Est. Patient 11:10:14 CDT Simon Castillo MD [facility] CPT-48107 Level 4 Est. Patient 09:44:02 CDT Simon Castillo MD [facility] CPT-16037 Level 3 Est. Patient 09:27:48 CDT Simon Castillo MD [facility] CPT-56762 Level 3 Est. Patient 09:58:06 GROCERY BAGGER Simon Castillo MD [facility] CPT-90773 Level 3 Est. Patient 09:51:35 CDT Simon Castillo MD [facility] Procedures Code Procedure Name Date Entry Date Standard Description CPT-G0008 Administration of Influenza Virus Vaccine 14:41:29 CDT CPT-12600 Fluzone High-Dose Intramuscular Suspension 14:41:29 CDT CPT-Cryo Cryotherapy 11:48:20 CDT CPT-27916 EKG Trac and Interp 09:21:58 CDT CPT-32203 Chest 2V Frontal and Lat 09:21:58 CDT CPT-Cryo Cryotherapy 10:54:51 GROCERY BAGGER CPT-53086 Administration 2+ single or combination vaccines inc oral 10:42:19 CDT CPT-37391 Administration single or combination vaccine inc oral 10 :42:19 CDT CPT-83739 Pneumovax 10:42:19 CDT CPT-11265 Influenza High Dose age 65+ 10:42:19 CDT CPT-33900 Administration single or combination vaccine inc oral 13 :18:54 CDT CPT-59061 Influenza High Dose age 65+ 13:18:54 CDT CPT-49373 Venipuncture Draw Fee 11:53:16 CDT CPT-83397 LS spine comp w obliq 11:03:13 CDT CPT-Cryo Cryotherapy 08:27:16 GROCERY BAGGER CPT-89155 Administration single or combination vaccine inc oral 10 :56:34 CDT CPT-02233 Influenza High Dose age 65+ 10:56:34 CDT
--- OUTSIDE RECORDS SUMMARY | 2018-07-20 12:49 | XMS REPORT | Clinical Summary ---
[...] involving unspecified site DIABETES ICD-V18.0 Inactive Simon Catsillo MD [facility] ICD-V16.1 Inactive Simon [...] hours as needed for pain TRAMADOL HCL 57236805121 Active Simon Castillo MD Active PREDNISONE 5 MG TAB Take one po qod PREDNISONE 65179010954 No Longer Active Simon Castillo MD Active GLYBURIDE 5 MG TAB Take one by mouth daily GLYBURIDE 13180671503 No Longer Active Simon Castillo MD Active LEVAQUIN 750 MG TABS 1 po qod x 5 doses LEVOFLOXACIN 76379301062 No Longer Active Simon Castillo MD Active CETIRIZINE HCL 10 MG TABS 1 po qd as needed for allergies CETIRIZINE HCL 20775687621 No Longer Active Simon Castillo MD Active FISH OIL 1000 MG CPDR 1 pill by mouth twice daily for cholesterol OMEGA -3 FATTY ACIDS 16533618589 Active Simon Castillo MD Active BILBERRY CAPS 1 tab daily BILBERRY (VACCINIUM MYRTILLUS) CAPS 72837621262 Active Simon Castillo MD Active ATENOLOL 50 MG TABS Take one by mouth daily ATENOLOL 65373033813 No Longer Active Simon Castillo MD Active FLONASE 50 MCG/ACT SUSP 2 puffs in each nostril daily FLUTICASONE PROPIONATE 99309842240 No Longer Active Simon Castillo MD Active GLYBURIDE 5 MG TAB Take one by mouth daily GLYBURIDE 86149530130 No Longer Active Simon Castillo MD Active SYMBICORT 80-4.5 MCG/ACT AERO 2 puffs twice a day BUDESONIDE-FORMOTEROL FUMARATE 40319432575 No Longer Active Simon Castillo MD Active PREDNISONE 20 MG TAB 2 tabs daily for 4 days, 1 tab daily for 4 days, 1/2 tab daily for 4 days PREDNISONE 67396496138 No Longer Active Simon Castillo MD Active AMOXICILLIN 500 MG CAPS 2 po BID x 10 days AMOXICILLIN 00024847761 No Longer Active Simon Castillo MD Active METFORMIN HCL 1000 MG TABS 1 by mounth twice a day METFORMIN HCL 46498619932 Active Simon Castillo MD Active LUTEIN-ZEAXANTHIN 6-1 MG TABS Take 2 by mouth daily LUTEIN-ZEAXANTHIN 14018794877 Active Simon Castillo MD Active IBUPROFEN 800 MG TABS Take 1 tab every 6 hrs prn IBUPROFEN 04644193868 No Longer Active Simon Castillo MD Active LISINOPRIL-HYDROCHLOROTHIAZIDE 20-12.5 MG TABS 1 tab by mouth daily LISINOPRIL-HYDROCHLOROTHIAZIDE 85464611829 Active Simon Castillo MD Active GLYBURIDE 2.5 MG TABS Take one by mouth daily GLYBURIDE 57174335795 No Longer Active Simon Castillo MD Active LANCETS MISC 2 qd LANCETS 54714763256 Active Pamela Conde Active ACACIA CONTOUR TEST STRP Use with testing twice daily GLUCOSE BLOOD 72056711723 Active Pamela Conde Active ACACIA ASPIRIN 325 MG TABS Take one by mouth daily ASPIRIN 69650420300 Active Pamela Conde Active GLYBURIDE 2.5 MG TABS Take one by mouth daily GLYBURIDE 2.5 MG TABS 264668 GLYBURIDE Inactive PREDNISONE 20 MG TAB 2 tabs daily for 4 days, 1 tab daily for 4 days, 1/2 tab daily for 4 days PREDNISONE 20 MG TAB 047536 PREDNISONE Inactive SYMBICORT 80-4.5 MCG/ACT AERO 2 puffs twice a day SYMBICORT 80-4.5 MCG/ACT AERO BUDESONIDE-FORMOTEROL FUMARATE Inactive FLONASE 50 MCG/ACT SUSP 2 puffs in each nostril daily FLONASE 50 MCG/ACT SUSP 607802 FLUTICASONE PROPIONATE Inactive ATENOLOL 50 MG TABS Take one by mouth daily ATENOLOL 50 MG TABS 060011 ATENOLOL Inactive CETIRIZINE HCL 10 MG TABS 1 po qd as needed for allergies CETIRIZINE HCL 10 MG TABS 0895276 CETIRIZINE HCL Inactive LEVAQUIN 750 MG TABS 1 po qod x 5 doses LEVAQUIN 750 MG TABS 305146 LEVOFLOXACIN Inactive GLYBURIDE 5 MG TAB Take one by mouth daily GLYBURIDE 5 MG TAB 736788 GLYBURIDE Inactive PREDNISONE 5 MG TAB Take one po qod PREDNISONE 5 MG TAB 849715 PREDNISONE Inactive AMOXICILLIN 500 MG CAPS 2 po BID x 10 days AMOXICILLIN 500 MG CAPS 369173 AMOXICILLIN Inactive GLYBURIDE 5 MG TAB Take one by mouth daily GLYBURIDE 5 MG TAB 390891 GLYBURIDE Inactive Immunizations Vaccine Administration Date Value [...] Panel - Chemistry sodium, serum 137 mmol/L 372-453 5685/06/26 potassium, serum 5.7 mmol/L 3.5-5.2 chloride, serum 104 mmol/L 98-107 carbon dioxide, venous blood 21.2 mmol/L 21.0-32.0 blood glucose 129 mg/dL 65-110 calcium, serum 9.0 mg/dL 8.5-10.1 urea nitrogen, blood 67 mg/dL 7-18 creatinine, serum 3.30 mg/dL 0.60-1.30 sodium, serum 140 mmol/L 392-161 6410/07/10 potassium, serum 5.3 mmol/L 3.5-5.2 chloride, serum 105 mmol/L 98-107 carbon dioxide, venous blood 25.5 mmol/L 21.0-32.0 blood glucose 119 mg/dL 65-110 calcium, serum 8.9 mg/dL 8.5-10.1 urea nitrogen, blood 44 mg/dL 7-18 creatinine, serum 2.50 mg/dL 0.60-1.30 Lab Report: CBC W/DIFF, Comp. Metabolic Panel - Chemistry sodium, serum 137 mmol/L 103-411 1417/06/18 potassium, serum 5.3 mmol/L 3.5-5.2 chloride, serum [...] 7.2 % 4.3-6.0 sodium, serum 137 mmol/L 591-434 6710/01/23 potassium, serum 5.2 mmol/L 3.5-5.2 chloride, serum [...] mg/dL Encounters Code Encounter Date Provider Facility CPT-78340 Level 4 Est. Patient 11:48:19 CDT Simon Castillo MD [facility] CPT-88097 Level 4 Est. Patient 08:59:29 CDT Simon Castillo MD [facility] CPT-28031 Level 4 Est. Patient 10:52:51 ORIENTAL MEDICINE PRACTITIONER Simon Castillo MD [facility] CPT-93364 Level 4 Est. Patient 11:50:30 CDT Simon Castillo MD [facility] CPT-23203 Level 4 Est. Patient 09:54:46 CDT Simon Castillo MD [facility] CPT-81785 Level 3 Est. Patient 11:10:14 CDT Simon Castillo MD [facility] CPT-21395 Level 4 Est. Patient 09:44:02 CDT Simon Castillo MD [facility] CPT-98277 Level 3 Est. Patient 09:27:48 CDT Simon Castillo MD [facility] CPT-90857 Level 3 Est. Patient 09:58:06 ORIENTAL MEDICINE PRACTITIONER Simon Castillo MD [facility] CPT-42160 Level 3 Est. Patient 09:51:35 CDT Simon Castillo MD [facility] Procedures Code Procedure Name Date Entry Date Standard Description CPT-Cryo Cryotherapy 11:48:20 CDT CPT-80443 EKG Trac and Interp 09:21:58 CDT CPT-20108 Chest 2V Frontal and Lat 09:21:58 CDT CPT-Cryo Cryotherapy 10:54:51 ORIENTAL MEDICINE PRACTITIONER CPT-24306 Administration 2+ single or combination vaccines inc oral 10:42:19 CDT CPT-38736 Administration single or combination vaccine inc oral 10 :42:19 CDT CPT-39866 Pneumovax 10:42:19 CDT CPT-94753 Influenza High Dose age 65+ 10:42:19 CDT CPT-98846 Administration single or combination vaccine inc oral 13 :18:54 CDT CPT-12092 Influenza High Dose age 65+ 13:18:54 CDT CPT-31922 Venipuncture Draw Fee 11:53:16 CDT CPT-70812 LS spine comp w obliq 11:03:13 CDT CPT-Cryo Cryotherapy 08:27:16 ORIENTAL MEDICINE PRACTITIONER CPT-34919 Administration single or combination vaccine inc oral 10 :56:34 CDT CPT-46797 Influenza High Dose age 65+ 10:56:34 CDT
--- OUTSIDE RECORDS SUMMARY | 2018-07-20 12:50 | XMS REPORT | Clinical Summary ---
Author Author Admin, RAFFI Organization [facility] Address Unknown Phone Allergies, Adverse Reactions, Alerts [...] qd as needed for allergies CETIRIZINE HCL 99359887672 Active Simon Castillo MD Active FISH OIL 1000 MG CPDR 1 pill by mouth twice daily for cholesterol OMEGA -3 FATTY ACIDS 85545961046 Active Simon Castillo MD Active BILBERRY CAPS 1 tab daily BILBERRY (VACCINIUM MYRTILLUS) CAPS 51902314593 Active Simon Castillo MD Active PREDNISONE 5 MG TAB Take one po qod PREDNISONE 15040306834 Active Simon Castillo MD Active ATENOLOL 50 MG TABS Take one by mouth daily ATENOLOL 10586561263 No Longer Active Simon Castillo MD Active FLONASE 50 MCG/ACT SUSP 2 puffs in each nostril daily FLUTICASONE PROPIONATE 23530025748 No Longer Active Simon Castillo MD Active GLYBURIDE 5 MG TAB Take one by mouth daily GLYBURIDE 34774026489 No Longer Active Simon Castillo MD Active SYMBICORT 80-4.5 MCG/ACT AERO 2 puffs twice a day BUDESONIDE- FORMOTEROL FUMARATE 04191567965 Active Simon Castillo MD Active PREDNISONE 20 MG TAB 2 tabs daily for 4 days, 1 tab daily for 4 days, 1/2 tab daily for 4 days PREDNISONE 55768410063 Active Simon Castillo MD Active AMOXICILLIN 500 MG CAPS 2 po BID x 10 days AMOXICILLIN 21447681784 No Longer Active Simon Castillo MD Active METFORMIN HCL 1000 MG TABS 1 by mount twice a day METFORMIN HCL 87559684320 Active Simon Castillo MD Active LUTEIN-ZEAXANTHIN 6-1 MG TABS Take 2 by mouth daily LUTEIN-ZEAXANTHIN 80817824550 Active Simon Castillo MD Active IBUPROFEN 800 MG TABS Take 1 tab every 6 hrs prn IBUPROFEN 37488865275 Active Simon Castillo MD Active LISINOPRIL-HYDROCHLOROTHIAZIDE 20-12.5 MG TABS 1 tab by mouth daily LISINOPRIL-HYDROCHLOROTHIAZIDE 57398643805 Active Simon Castillo MD Active GLYBURIDE 2.5 MG TABS Take one by mouth daily GLYBURIDE 90518679848 No Longer Active Simon Castillo MD Active LANCETS MISC 2 qd LANCETS 38636338480 Active Pmaela Conde Active ACACIA CONTOUR TEST STRP Use with testing twice daily GLUCOSE BLOOD 44557805072 Active Pamela Conde Active ACACIA ASPIRIN 325 MG TABS Take one by mouth daily ASPIRIN 45632378799 Active Pamela Conde Active GLYBURIDE 2.5 MG TABS Take one by mouth daily GLYBURIDE 2.5 MG TABS 116345 GLYBURIDE Inactive FLONASE 50 MCG/ACT SUSP 2 puffs in each nostril daily FLONASE 50 MCG/ACT SUSP 233961 FLUTICASONE PROPIONATE Inactive ATENOLOL 50 MG TABS Take one by mouth daily ATENOLOL 50 MG TABS 752478 ATENOLOL Inactive AMOXICILLIN 500 MG CAPS 2 po BID x 10 days AMOXICILLIN 500 MG CAPS 409794 AMOXICILLIN Inactive GLYBURIDE 5 MG TAB Take one by mouth daily GLYBURIDE 5 MG TAB 741551 GLYBURIDE Inactive Immunizations Vaccine Administration Date Value [...] (AUTO) - Chemistry sodium, serum 141 mmol/L 716-578 9641/07/29 potassium, serum 5.7 mmol/L 3.5-5.2 chloride, serum [...] 7.2 % 4.3-6.0 sodium, serum 137 mmol/L 272-279 0125/01/23 potassium, serum 5.2 mmol/L 3.5-5.2 chloride, serum [...] mg/dL Encounters Code Encounter Date Provider Facility CPT-25604 Level 4 Est. Patient 10:52:51 [employer]OTE CONTROL [employer]SEMBLER Simon Castillo MD [facility] CPT-13240 Level 4 Est. Patient 11:50:30 CDT Simon Castillo MD [facility] CPT-12152 Level 4 Est. Patient 09:54:46 CDT Simon Castillo MD [facility] CPT-37819 Level 3 Est. Patient 11:10:14 CDT Simon Castillo MD [facility] CPT-33427 Level 4 Est. Patient 09:44:02 CDT Simon Castillo MD [facility] CPT-99033 Level 3 Est. Patient 09:27:48 CDT Simon Castillo MD [facility] CPT-76977 Level 3 Est. Patient 09:58:06 REMOTE CONTROL ASSEMBLER Simon Castillo MD [facility] CPT-13613 Level 3 Est. Patient 09:51:35 CDT Simon Castillo MD [facility] Procedures Code Procedure Name Date Entry Date Standard Description CPT-Cryo Cryotherapy 10:54:51 REMOTE CONTROL ASSEMBLER CPT-19024 Administration 2+ single or combination vaccines inc oral 10:42:19 CDT CPT-57899 Administration single or combination vaccine inc oral 10 :42:19 CDT CPT-99336 Pneumovax 10:42:19 CDT CPT-95829 Influenza High Dose age 65+ 10:42:19 CDT CPT-41928 Administration single or combination vaccine inc oral 13 :18:54 CDT CPT-24817 Influenza High Dose age 65+ 13:18:54 CDT CPT-13632 Venipuncture Draw Fee 11:53:16 CDT CPT-01763 LS spine comp w obliq 11:03:13 CDT CPT-Cryo Cryotherapy 08:27:16 REMOTE CONTROL ASSEMBLER CPT-31735 Administration single or combination vaccine inc oral 10 :56:34 CDT CPT-67654 Influenza High Dose age 65+ 10:56:34 CDT
--- OUTSIDE RECORDS SUMMARY | 2018-07-20 12:50 | XMS REPORT | Clinical Summary ---
Author Author Admin, RAFFI Organization [facility] Address Unknown Phone Allergies, Adverse Reactions, Alerts [...] 1 po qod x 5 doses LEVOFLOXACIN 47598015691 Active Simon Castillo MD Active CETIRIZINE HCL 10 MG TABS 1 po qd as needed for allergies CETIRIZINE HCL 42860047661 No Longer Active Simon Castillo MD Active FISH OIL 1000 MG CPDR 1 pill by mouth twice daily for cholesterol OMEGA -3 FATTY ACIDS 37170905786 Active Simon Castillo MD Active BILBERRY CAPS 1 tab daily BILBERRY (VACCINIUM MYRTILLUS) CAPS 41801616079 Active Simon Castillo MD Active PREDNISONE 5 MG TAB Take one po qod PREDNISONE 90396287672 Active Simon Castillo MD Active ATENOLOL 50 MG TABS Take one by mouth daily ATENOLOL 52069078327 No Longer Active Simon Castillo MD Active GLYBURIDE 5 MG TAB Take one by mouth daily GLYBURIDE 39211395457 Active Jami Dickey Active FLONASE 50 MCG/ACT SUSP 2 puffs in each nostril daily FLUTICASONE PROPIONATE 18896880797 No Longer Active Simon Castillo MD Active GLYBURIDE 5 MG TAB Take one by mouth daily GLYBURIDE 75025122235 No Longer Active Simon Castillo MD Active SYMBICORT 80-4.5 MCG/ACT AERO 2 puffs twice a day BUDESONIDE-FORMOTEROL FUMARATE 72565644454 No Longer Active Simon Castillo MD Active PREDNISONE 20 MG TAB 2 tabs daily for 4 days, 1 tab daily for 4 days, 1/2 tab daily for 4 days PREDNISONE 80190677094 No Longer Active Simon Castillo MD Active AMOXICILLIN 500 MG CAPS 2 po BID x 10 days AMOXICILLIN 69169296155 No Longer Active Simon Castillo MD Active METFORMIN HCL 1000 MG TABS 1 by mount twice a day METFORMIN HCL 12467918538 Active Simon Castillo MD Active LUTEIN-ZEAXANTHIN 6-1 MG TABS Take 2 by mouth daily LUTEIN-ZEAXANTHIN 21345649758 Active Simon Castillo MD Active IBUPROFEN 800 MG TABS Take 1 tab every 6 hrs prn IBUPROFEN 20395885842 Active Simon Castillo MD Active LISINOPRIL-HYDROCHLOROTHIAZIDE 20-12.5 MG TABS 1 tab by mouth daily LISINOPRIL-HYDROCHLOROTHIAZIDE 20139439422 Active Simon Castillo MD Active GLYBURIDE 2.5 MG TABS Take one by mouth daily GLYBURIDE 59588754549 No Longer Active Simon Castillo MD Active LANCETS MISC 2 qd LANCETS 26306283572 Active Pamela Conde Active [employer] CONTOUR TEST STRP Use with testing twice daily GLUCOSE BLOOD 24819349021 Active Pamela Conde Active ACACIA ASPIRIN 325 MG TABS Take one by mouth daily ASPIRIN 17835020893 Active Pamela Conde Active GLYBURIDE 2.5 MG TABS Take one by mouth daily GLYBURIDE 2.5 MG TABS 644037 GLYBURIDE Inactive PREDNISONE 20 MG TAB 2 tabs daily for 4 days, 1 tab daily for 4 days, 1/2 tab daily for 4 days PREDNISONE 20 MG TAB 961513 PREDNISONE Inactive SYMBICORT 80-4.5 MCG/ACT AERO 2 puffs twice a day SYMBICORT 80-4.5 MCG/ACT AERO BUDESONIDE-FORMOTEROL FUMARATE Inactive FLONASE 50 MCG/ACT SUSP 2 puffs in each nostril daily FLONASE 50 MCG/ACT SUSP 886928 FLUTICASONE PROPIONATE Inactive ATENOLOL 50 MG TABS Take one by mouth daily ATENOLOL 50 MG TABS 162756 ATENOLOL Inactive CETIRIZINE HCL 10 MG TABS 1 po qd as needed for allergies CETIRIZINE HCL 10 MG TABS 0421091 CETIRIZINE HCL Inactive AMOXICILLIN 500 MG CAPS 2 po BID x 10 days AMOXICILLIN 500 MG CAPS 420423 AMOXICILLIN Inactive GLYBURIDE 5 MG TAB Take one by mouth daily GLYBURIDE 5 MG TAB 047139 GLYBURIDE Inactive Immunizations Vaccine Administration Date Value [...] Panel - Chemistry sodium, serum 137 mmol/L 054-074 1260/06/26 potassium, serum 5.7 mmol/L 3.5-5.2 chloride, serum 104 mmol/L 98-107 carbon dioxide, venous blood 21.2 mmol/L 21.0-32.0 blood glucose 129 mg/dL 65-110 calcium, serum 9.0 mg/dL 8.5-10.1 urea nitrogen, blood 67 mg/dL 7-18 creatinine, serum 3.30 mg/dL 0.60-1.30 Lab Report: CBC W/DIFF, Comp. Metabolic Panel - Chemistry sodium, serum 137 mmol/L 743-229 5500/06/18 potassium, serum 5.3 mmol/L 3.5-5.2 chloride, serum [...] (AUTO) - Chemistry sodium, serum 141 mmol/L 109-083 4160/07/29 potassium, serum 5.7 mmol/L 3.5-5.2 chloride, serum [...] 7.2 % 4.3-6.0 sodium, serum 137 mmol/L 325-959 5849/01/23 potassium, serum 5.2 mmol/L 3.5-5.2 chloride, serum [...] mg/dL Encounters Code Encounter Date Provider Facility CPT-11499 Level 4 Est. Patient 08:59:29 CDT Simon Castillo MD [facility] CPT-69796 Level 4 Est. Patient 10:52:51 SCRATCHER Simon Castillo MD [facility] CPT-43095 Level 4 Est. Patient 11:50:30 CDT Simon Castillo MD [facility] CPT-01801 Level 4 Est. Patient 09:54:46 CDT Simon Castillo MD [facility] CPT-68640 Level 3 Est. Patient 11:10:14 CDT Simon Castillo MD [facility] CPT-36389 Level 4 Est. Patient 09:44:02 CDT Simon Castillo MD [facility] CPT-23477 Level 3 Est. Patient 09:27:48 CDT Simon Castillo MD [facility] CPT-21787 Level 3 Est. Patient 09:58:06 SCRATCHER Simon Castilol MD [facility] CPT-71189 Level 3 Est. Patient 09:51:35 CDT Simon Castillo MD [facility] Procedures Code Procedure Name Date Entry Date Standard Description CPT-31868 EKG Trac and Interp 09:21:58 CDT CPT-89466 Chest 2V Frontal and Lat 09:21:58 CDT CPT-Cryo Cryotherapy 10:54:51 SCRATCHER CPT-93786 Administration 2+ single or combination vaccines inc oral 10:42:19 CDT CPT-52299 Administration single or combination vaccine inc oral 10 :42:19 CDT CPT-46277 Pneumovax 10:42:19 CDT CPT-98578 Influenza High Dose age 65+ 10:42:19 CDT CPT-47907 Administration single or combination vaccine inc oral 13 :18:54 CDT CPT-25743 Influenza High Dose age 65+ 13:18:54 CDT CPT-22123 Venipuncture Draw Fee 11:53:16 CDT CPT-65084 LS spine comp w obliq 11:03:13 CDT CPT-Cryo Cryotherapy 08:27:16 SCRATCHER CPT-37923 Administration single or combination vaccine inc oral 10 :56:34 CDT CPT-46620 Influenza High Dose age 65+ 10:56:34 CDT
--- OUTSIDE RECORDS SUMMARY | 2018-07-20 12:51 | XMS REPORT | Clinical Summary ---
Author Author Admin, RAFFI Organization [facility] Address Unknown Phone Unavailable Allergies, Adverse [...] hours as needed for pain TRAMADOL HCL 98476143759 Active Simon Castillo MD Active PREDNISONE 5 MG TAB Take one po qod PREDNISONE 62230708377 No Longer Active Simon Castillo MD Active GLYBURIDE 5 MG TAB Take one by mouth daily GLYBURIDE 99467662249 No Longer Active Simon Castillo MD Active LEVAQUIN 750 MG TABS 1 po qod x 5 doses LEVOFLOXACIN 72192330603 No Longer Active Simon Castillo MD Active CETIRIZINE HCL 10 MG TABS 1 po qd as needed for allergies CETIRIZINE HCL 38485338011 No Longer Active Simon Castillo MD Active FISH OIL 1000 MG CPDR 1 pill by mouth twice daily for cholesterol OMEGA -3 FATTY ACIDS 71162603765 Active Simon Castillo MD Active BILBERRY CAPS 1 tab daily BILBERRY (VACCINIUM MYRTILLUS) CAPS 43186906707 Active Simon Castillo MD Active ATENOLOL 50 MG TABS Take one by mouth daily ATENOLOL 51215593117 No Longer Active Simon Castillo MD Active FLONASE 50 MCG/ACT SUSP 2 puffs in each nostril daily FLUTICASONE PROPIONATE 90765696929 No Longer Active Simon Castillo MD Active GLYBURIDE 5 MG TAB Take one by mouth daily GLYBURIDE 89126369165 No Longer Active Simon Castillo MD Active SYMBICORT 80-4.5 MCG/ACT AERO 2 puffs twice a day BUDESONIDE-FORMOTEROL FUMARATE 07448403824 No Longer Active Simon Castillo MD Active PREDNISONE 20 MG TAB 2 tabs daily for 4 days, 1 tab daily for 4 days, 1/2 tab daily for 4 days PREDNISONE 33885967933 No Longer Active Simon Castillo MD Active AMOXICILLIN 500 MG CAPS 2 po BID x 10 days AMOXICILLIN 05526228504 No Longer Active Simon Castillo MD Active METFORMIN HCL 1000 MG TABS 1 by mounth twice a day METFORMIN HCL 13764999270 Active Simon Castillo MD Active LUTEIN-ZEAXANTHIN 6-1 MG TABS Take 2 by mouth daily LUTEIN-ZEAXANTHIN 12343682167 Active Simon Castillo MD Active IBUPROFEN 800 MG TABS Take 1 tab every 6 hrs prn IBUPROFEN 72534012397 No Longer Active Simon Castillo MD Active LISINOPRIL-HYDROCHLOROTHIAZIDE 20-12.5 MG TABS 1 tab by mouth daily LISINOPRIL-HYDROCHLOROTHIAZIDE 90288892231 Active Simon Castillo MD Active GLYBURIDE 2.5 MG TABS Take one by mouth daily GLYBURIDE 08812771518 No Longer Active Simon Castillo MD Active LANCETS MISC 2 qd LANCETS 27876652791 Active Pamela Conde Active [employer] CONTOUR TEST STRP Use with testing twice daily GLUCOSE BLOOD 73645149845 Active Pamela Conde Active ACACIA ASPIRIN 325 MG TABS Take one by mouth daily ASPIRIN 84141820745 Active Pamela Conde Active GLYBURIDE 2.5 MG TABS Take one by mouth daily GLYBURIDE 2.5 MG TABS 067621 GLYBURIDE Inactive PREDNISONE 20 MG TAB 2 tabs daily for 4 days, 1 tab daily for 4 days, 1/2 tab daily for 4 days PREDNISONE 20 MG TAB 258029 PREDNISONE Inactive SYMBICORT 80-4.5 MCG/ACT AERO 2 puffs twice a day SYMBICORT 80-4.5 MCG/ACT AERO BUDESONIDE-FORMOTEROL FUMARATE Inactive FLONASE 50 MCG/ACT SUSP 2 puffs in each nostril daily FLONASE 50 MCG/ACT SUSP 638655 FLUTICASONE PROPIONATE Inactive ATENOLOL 50 MG TABS Take one by mouth daily ATENOLOL 50 MG TABS 034998 ATENOLOL Inactive CETIRIZINE HCL 10 MG TABS 1 po qd as needed for allergies CETIRIZINE HCL 10 MG TABS 1478945 CETIRIZINE HCL Inactive LEVAQUIN 750 MG TABS 1 po qod x 5 doses LEVAQUIN 750 MG TABS 083555 LEVOFLOXACIN Inactive GLYBURIDE 5 MG TAB Take one by mouth daily GLYBURIDE 5 MG TAB 585076 GLYBURIDE Inactive PREDNISONE 5 MG TAB Take one po qod PREDNISONE 5 MG TAB 895380 PREDNISONE Inactive AMOXICILLIN 500 MG CAPS 2 po BID x 10 days AMOXICILLIN 500 MG CAPS 453784 AMOXICILLIN Inactive GLYBURIDE 5 MG TAB Take one by mouth daily GLYBURIDE 5 MG TAB 528189 GLYBURIDE Inactive Immunizations Vaccine Administration Date Value [...] Panel - Chemistry sodium, serum 137 mmol/L 740-355 7071/06/26 potassium, serum 5.7 mmol/L 3.5-5.2 chloride, serum 104 mmol/L 98-107 carbon dioxide, venous blood 21.2 mmol/L 21.0-32.0 blood glucose 129 mg/dL 65-110 calcium, serum 9.0 mg/dL 8.5-10.1 urea nitrogen, blood 67 mg/dL 7-18 creatinine, serum 3.30 mg/dL 0.60-1.30 sodium, serum 140 mmol/L 451-114 3347/07/10 potassium, serum 5.3 mmol/L 3.5-5.2 chloride, serum 105 mmol/L 98-107 carbon dioxide, venous blood 25.5 mmol/L 21.0-32.0 blood glucose 119 mg/dL 65-110 calcium, serum 8.9 mg/dL 8.5-10.1 urea nitrogen, blood 44 mg/dL 7-18 creatinine, serum 2.50 mg/dL 0.60-1.30 Lab Report: CBC W/DIFF, Comp. Metabolic Panel - Chemistry sodium, serum 137 mmol/L 010-619 0263/06/18 potassium, serum 5.3 mmol/L 3.5-5.2 chloride, serum [...] 7.2 % 4.3-6.0 sodium, serum 137 mmol/L 214-983 3294/01/23 potassium, serum 5.2 mmol/L 3.5-5.2 chloride, serum [...] mg/dL Encounters Code Encounter Date Provider Facility CPT-64076 Level 4 Est. Patient 11:48:19 CDT Simon Castillo MD [facility] CPT-25037 Level 4 Est. Patient 08:59:29 CDT Simon Castillo MD [facility] CPT-81673 Level 4 Est. Patient 10:52:51 BUSINESS ECONOMIST Simon Castillo MD [facility] CPT-49360 Level 4 Est. Patient 11:50:30 CDT Simon Castillo MD [facility] CPT-52750 Level 4 Est. Patient 09:54:46 CDT Simon Castillo MD [facility] CPT-22818 Level 3 Est. Patient 11:10:14 CDT Simon Castillo MD [facility] CPT-63367 Level 4 Est. Patient 09:44:02 CDT Simon Castillo MD [facility] CPT-98168 Level 3 Est. Patient 09:27:48 CDT Simon Castillo MD [facility] CPT-48924 Level 3 Est. Patient 09:58:06 BUSINESS ECONOMIST Simon Castillo MD [facility] CPT-51133 Level 3 Est. Patient 09:51:35 CDT Simon Castillo MD [facility] Procedures Code Procedure Name Date Entry Date Standard Description CPT-Cryo Cryotherapy 11:48:20 CDT CPT-30022 EKG Trac and Interp 09:21:58 CDT CPT-67268 Chest 2V Frontal and Lat 09:21:58 CDT CPT-Cryo Cryotherapy 10:54:51 BUSINESS ECONOMIST CPT-23192 Administration 2+ single or combination vaccines inc oral 10:42:19 CDT CPT-36882 Administration single or combination vaccine inc oral 10 :42:19 CDT CPT-03790 Pneumovax 10:42:19 CDT CPT-61062 Influenza High Dose age 65+ 10:42:19 CDT CPT-84044 Administration single or combination vaccine inc oral 13 :18:54 CDT CPT-87493 Influenza High Dose age 65+ 13:18:54 CDT CPT-10373 Venipuncture Draw Fee 11:53:16 CDT CPT-05488 LS spine comp w obliq 11:03:13 CDT CPT-Cryo Cryotherapy 08:27:16 BUSINESS ECONOMIST CPT-99741 Administration single or combination vaccine inc oral 10 :56:34 CDT CPT-22933 Influenza High Dose age 65+ 10:56:34 CDT
--- OUTSIDE RECORDS SUMMARY | 2018-07-20 12:52 | XMS REPORT | Clinical Summary ---
Author Author Admin, RAFFI Organization [facility] Address Unknown Phone Allergies, Adverse Reactions, [...] rhinitis, cause unspecified Actinic keratosis 702.0 Active iSmon Castillo MD Actinic keratosis FH DIABETES ICD-V18.0 [...] qd as needed for allergies CETIRIZINE HCL 33313017061 Active Simon Castillo MD Active FISH OIL 1000 MG CPDR 1 pill by mouth twice daily for cholesterol OMEGA -3 FATTY ACIDS 63909731051 Active Simon Castillo MD Active BILBERRY CAPS 1 tab daily BILBERRY (VACCINIUM MYRTILLUS) CAPS 97584336767 Active Simon Castillo MD Active PREDNISONE 5 MG TAB Take one po qod PREDNISONE 26134187102 Active Simon Castillo MD Active ATENOLOL 50 MG TABS Take one by mouth daily ATENOLOL 30226600173 No Longer Active Simon Castillo MD Active FLONASE 50 MCG/ACT SUSP 2 puffs in each nostril daily FLUTICASONE PROPIONATE 12948188953 No Longer Active Simon Castillo MD Active GLYBURIDE 5 MG TAB Take one by mouth daily GLYBURIDE 89040391881 No Longer Active Simon Castillo MD Active SYMBICORT 80-4.5 MCG/ACT AERO 2 puffs twice a day BUDESONIDE- FORMOTEROL FUMARATE 92629434788 Active Simon Castillo MD Active PREDNISONE 20 MG TAB 2 tabs daily for 4 days, 1 tab daily for 4 days, 1/2 tab daily for 4 days PREDNISONE 94996116422 Active Simon Castillo MD Active AMOXICILLIN 500 MG CAPS 2 po BID x 10 days AMOXICILLIN 22025967104 No Longer Active Simon Castillo MD Active METFORMIN HCL 1000 MG TABS 1 by mount twice a day METFORMIN HCL 62521894397 Active Simon Castillo MD Active LUTEIN-ZEAXANTHIN 6-1 MG TABS Take 2 by mouth daily LUTEIN-ZEAXANTHIN 80920828780 Active Simon Castillo MD Active IBUPROFEN 800 MG TABS Take 1 tab every 6 hrs prn IBUPROFEN 02850737085 Active Simon Castillo MD Active LISINOPRIL-HYDROCHLOROTHIAZIDE 20-12.5 MG TABS 1 tab by mouth daily LISINOPRIL-HYDROCHLOROTHIAZIDE 36274152969 Active Simon Castillo MD Active GLYBURIDE 2.5 MG TABS Take one by mouth daily GLYBURIDE 84978750338 No Longer Active Simon Castillo MD Active LANCETS MISC 2 qd LANCETS 34243879811 Active Pamela Conde Active [employer] CONTOUR TEST STRP Use with testing twice daily GLUCOSE BLOOD 24206437724 Active Pamela Conde Active ACACIA ASPIRIN 325 MG TABS Take one by mouth daily ASPIRIN 66426630597 Active Pamela Conde Active GLYBURIDE 2.5 MG TABS Take one by mouth daily GLYBURIDE 2.5 MG TABS 712939 GLYBURIDE Inactive FLONASE 50 MCG/ACT SUSP 2 puffs in each nostril daily FLONASE 50 MCG/ACT SUSP 321805 FLUTICASONE PROPIONATE Inactive ATENOLOL 50 MG TABS Take one by mouth daily ATENOLOL 50 MG TABS 850566 ATENOLOL Inactive AMOXICILLIN 500 MG CAPS 2 po BID x 10 days AMOXICILLIN 500 MG CAPS 226128 AMOXICILLIN Inactive GLYBURIDE 5 MG TAB Take one by mouth daily GLYBURIDE 5 MG TAB 654789 GLYBURIDE Inactive Immunizations Vaccine Administration Date Value [...] (AUTO) - Chemistry sodium, serum 141 mmol/L 634-919 1630/07/29 potassium, serum 5.7 mmol/L 3.5-5.2 chloride, serum [...] 7.2 % 4.3-6.0 sodium, serum 137 mmol/L 350-600 7557/01/23 potassium, serum 5.2 mmol/L 3.5-5.2 chloride, serum [...] mg/dL Encounters Code Encounter Date Provider Facility CPT-10871 Level 4 Est. Patient 10:52:51 DE ICER Simon Castillo MD [facility] CPT-38554 Level 4 Est. Patient 11:50:30 CDT Simon Castillo MD [facility] CPT-12421 Level 4 Est. Patient 09:54:46 CDT Simon Castillo MD [facility] CPT-05729 Level 3 Est. Patient 11:10:14 CDT Simon Castillo MD [facility] CPT-78505 Level 4 Est. Patient 09:44:02 CDT Simon Castillo MD [facility] CPT-79146 Level 3 Est. Patient 09:27:48 CDT Simon Castillo MD [facility] CPT-25830 Level 3 Est. Patient 09:58:06 DE ICER Simon Castillo MD [facility] CPT-29811 Level 3 Est. Patient 09:51:35 CDT Simon Castillo MD [facility] Procedures Code Procedure Name Date Entry Date Standard Description CPT-Cryo Cryotherapy 10:54:51 DE ICER CPT-03642 Administration 2+ single or combination vaccines inc oral 10:42:19 CDT CPT-30592 Administration single or combination vaccine inc oral 10 :42:19 CDT CPT-42297 Pneumovax 10:42:19 CDT CPT-04003 Influenza High Dose age 65+ 10:42:19 CDT CPT-28017 Administration single or combination vaccine inc oral 13 :18:54 CDT CPT-67577 Influenza High Dose age 65+ 13:18:54 CDT CPT-46673 Venipuncture Draw Fee 11:53:16 CDT CPT-90484 LS spine comp w obliq 11:03:13 CDT CPT-Cryo Cryotherapy 08:27:16 DE ICER CPT-98668 Administration single or combination vaccine inc oral 10 :56:34 CDT CPT-91399 Influenza High Dose age 65+ 10:56:34 CDT
--- OUTSIDE RECORDS SUMMARY | 2018-07-20 12:52 | XMS REPORT | Clinical Summary ---
Author Author Admin, RAFFI Organization [facility] Address Unknown Phone Allergies, Adverse Reactions, [...] qd as needed for allergies CETIRIZINE HCL 68493069935 No Longer Active Simon Castillo MD Active FISH OIL 1000 MG CPDR 1 pill by mouth twice daily for cholesterol OMEGA -3 FATTY ACIDS 60137110708 Active Simon Castillo MD Active BILBERRY CAPS 1 tab daily BILBERRY (VACCINIUM MYRTILLUS) CAPS 85815136510 Active Simon Castillo MD Active PREDNISONE 5 MG TAB Take one po qod PREDNISONE 94240621931 Active Simon Castillo MD Active ATENOLOL 50 MG TABS Take one by mouth daily ATENOLOL 96915041257 No Longer Active Simon Castillo MD Active GLYBURIDE 5 MG TAB Take one by mouth daily GLYBURIDE 27871071078 Active Jami Revere Active FLONASE 50 MCG/ACT SUSP 2 puffs in each nostril daily FLUTICASONE PROPIONATE 75556644012 No Longer Active Simon Castillo MD Active GLYBURIDE 5 MG TAB Take one by mouth daily GLYBURIDE 62438546594 No Longer Active Simon Castillo MD Active SYMBICORT 80-4.5 MCG/ACT AERO 2 puffs twice a day BUDESONIDE-FORMOTEROL FUMARATE 43137980005 No Longer Active Simon Castillo MD Active PREDNISONE 20 MG TAB 2 tabs daily for 4 days, 1 tab daily for 4 days, 1/2 tab daily for 4 days PREDNISONE 69540910970 No Longer Active Simon Castillo MD Active AMOXICILLIN 500 MG CAPS 2 po BID x 10 days AMOXICILLIN 55375378055 No Longer Active Simon Castillo MD Active METFORMIN HCL 1000 MG TABS 1 by mounth twice a day METFORMIN HCL 65292183280 Active Simon Castillo MD Active LUTEIN-ZEAXANTHIN 6-1 MG TABS Take 2 by mouth daily LUTEIN-ZEAXANTHIN 16845974571 Active Simon Castillo MD Active IBUPROFEN 800 MG TABS Take 1 tab every 6 hrs prn IBUPROFEN 97843428269 Active Simon Castillo MD Active LISINOPRIL-HYDROCHLOROTHIAZIDE 20-12.5 MG TABS 1 tab by mouth daily LISINOPRIL-HYDROCHLOROTHIAZIDE 79639631703 Active Simon Castillo MD Active GLYBURIDE 2.5 MG TABS Take one by mouth daily GLYBURIDE 31376035465 No Longer Active Simon Castillo MD Active LANCETS MISC 2 qd LANCETS 77596735306 Active Pamela Conde Active [employer] CONTOUR TEST STRP Use with testing twice daily GLUCOSE BLOOD 48893625424 Active Pamela Conde Active [employer] ASPIRIN 325 MG TABS Take one by mouth daily ASPIRIN 86280317619 Active Pamela Conde Active GLYBURIDE 2.5 MG TABS Take one by mouth daily GLYBURIDE 2.5 MG TABS 270858 GLYBURIDE Inactive PREDNISONE 20 MG TAB 2 tabs daily for 4 days, 1 tab daily for 4 days, 1/2 tab daily for 4 days PREDNISONE 20 MG TAB 773717 PREDNISONE Inactive SYMBICORT 80-4.5 MCG/ACT AERO 2 puffs twice a day SYMBICORT 80-4.5 MCG/ACT AERO BUDESONIDE-FORMOTEROL FUMARATE Inactive FLONASE 50 MCG/ACT SUSP 2 puffs in each nostril daily FLONASE 50 MCG/ACT SUSP 565778 FLUTICASONE PROPIONATE Inactive ATENOLOL 50 MG TABS Take one by mouth daily ATENOLOL 50 MG TABS 275744 ATENOLOL Inactive CETIRIZINE HCL 10 MG TABS 1 po qd as needed for allergies CETIRIZINE HCL 10 MG TABS 4773209 CETIRIZINE HCL Inactive AMOXICILLIN 500 MG CAPS 2 po BID x 10 days AMOXICILLIN 500 MG CAPS 481841 AMOXICILLIN Inactive GLYBURIDE 5 MG TAB Take one by mouth daily GLYBURIDE 5 MG TAB 831249 GLYBURIDE Inactive Immunizations Vaccine Administration Date Value [...] (AUTO) - Chemistry sodium, serum 141 mmol/L 979-511 8997/07/29 potassium, serum 5.7 mmol/L 3.5-5.2 chloride, serum [...] 7.2 % 4.3-6.0 sodium, serum 137 mmol/L 862-488 3997/01/23 potassium, serum 5.2 mmol/L 3.5-5.2 chloride, serum [...] mg/dL Encounters Code Encounter Date Provider Facility CPT-20103 Level 4 Est. Patient 08:59:29 CDT Simon Castillo MD [facility] CPT-10243 Level 4 Est. Patient 10:52:51 SPEED WINDER Simon Castillo MD [facility] CPT-65606 Level 4 Est. Patient 11:50:30 CDT Simon Castillo MD [facility] CPT-17120 Level 4 Est. Patient 09:54:46 CDT Simon Castillo MD [facility] CPT-04072 Level 3 Est. Patient 11:10:14 CDT Simon Castillo MD [facility] CPT-57499 Level 4 Est. Patient 09:44:02 CDT Simon Castillo MD [facility] CPT-61869 Level 3 Est. Patient 09:27:48 CDT Simon Castillo MD [facility] CPT-68686 Level 3 Est. Patient 09:58:06 SPEED WINDER Simon Castillo MD [facility] CPT-68095 Level 3 Est. Patient 09:51:35 CDT Simon Castillo MD [facility] Procedures Code Procedure Name Date Entry Date Standard Description CPT-84539 EKG Trac and Interp 09:21:58 CDT CPT-36573 Chest 2V Frontal and Lat 09:21:58 CDT CPT-Cryo Cryotherapy 10:54:51 SPEED WINDER CPT-24671 Administration 2+ single or combination vaccines inc oral 10:42:19 CDT CPT-15936 Administration single or combination vaccine inc oral 10 :42:19 CDT CPT-37226 Pneumovax 10:42:19 CDT CPT-47812 Influenza High Dose age 65+ 10:42:19 CDT CPT-02477 Administration single or combination vaccine inc oral 13 :18:54 CDT CPT-96798 Influenza High Dose age 65+ 13:18:54 CDT CPT-60699 Venipuncture Draw Fee 11:53:16 CDT CPT-84110 LS spine comp w obliq 11:03:13 CDT CPT-Cryo Cryotherapy 08:27:16 SPEED WINDER CPT-75355 Administration single or combination vaccine inc oral 10 :56:34 CDT CPT-27758 Influenza High Dose age 65+ 10:56:34 CDT
--- OUTSIDE RECORDS SUMMARY | 2018-07-20 12:53 | XMS REPORT | Clinical Summary ---
Author Author Admin, RAFFI Organization [facility] Address Unknown Phone Unavailable Allergies, Adverse [...] SINUSITIS, ACUTE ICD-461.9 Inactive Simon Castillo MD Obesity ICD-278.00 Inactive Simon Castillo MD 2013 Chest pain ICD-786.50 Inactive Simon Castillo MD Cough ICD-786.2 Inactive Simon Castillo MD SCIATICA ICD-724.3 Inactive Simon Castillo MD 2012 BENIGN PROSTATIC HYPERTROPHY, MILD, HX OF ICD-V13.89 Inactive Simon Castillo MD Medication List Medication Instructions Start Date Stop Date Generic Name NDC Status Provider Patient Instruction GLIMEPIRIDE 1 MG TABS 1 po q a.m. GLIMEPIRIDE 20360638193 Active Simon Castillo MD Active CARVEDILOL 6.25 MG TABS 1 po BID CARVEDILOL 36515416321 Active Simon Castillo MD Active LISINOPRIL-HYDROCHLOROTHIAZIDE 20-12.5 MG TABS 1/2 tab by mouth daily LISINOPRIL-HYDROCHLOROTHIAZIDE 71658370450 Active Simon Castillo MD Active PREDNISONE 5 MG TABS 1 po qod PREDNISONE 97814592391 Active Simon Castillo MD Active TRAMADOL HCL 50 MG TABS 1-2 tablets every 6 hours as needed for pain TRAMADOL HCL 94915489036 Active Simon Castillo MD Active PREDNISONE 5 MG TAB Take one po qod PREDNISONE 91486480311 No Longer Active Simon Castillo MD Active GLYBURIDE 5 MG TAB Take one by mouth daily GLYBURIDE 49091265043 No Longer Active Simon Castillo MD Active LEVAQUIN 750 MG TABS 1 po qod x 5 doses LEVOFLOXACIN 45779972582 No Longer Active Simon Castillo MD Active CETIRIZINE HCL 10 MG TABS 1 po qd as needed for allergies CETIRIZINE HCL 68977611501 No Longer Active Simon Castillo MD Active FISH OIL 1000 MG CPDR 1 pill by mouth twice daily for cholesterol OMEGA -3 FATTY ACIDS 16741794479 Active Simon Castillo MD Active BILBERRY CAPS 1 tab daily BILBERRY (VACCINIUM MYRTILLUS) CAPS 85111510029 Active Simon Castillo MD Active ATENOLOL 50 MG TABS Take one by mouth daily ATENOLOL 51538739440 No Longer Active Simon Castillo MD Active FLONASE 50 MCG/ACT SUSP 2 puffs in each nostril daily FLUTICASONE PROPIONATE 03507546120 No Longer Active Simon Castillo MD Active GLYBURIDE 5 MG TAB Take one by mouth daily GLYBURIDE 11813068556 No Longer Active Simon Castillo MD Active SYMBICORT 80-4.5 MCG/ACT AERO 2 puffs twice a day BUDESONIDE-FORMOTEROL FUMARATE 52564890775 No Longer Active Simon Castillo MD Active PREDNISONE 20 MG TAB 2 tabs daily for 4 days, 1 tab daily for 4 days, 1/2 tab daily for 4 days PREDNISONE 75481512937 No Longer Active Simon Castillo MD Active AMOXICILLIN 500 MG CAPS 2 po BID x 10 days AMOXICILLIN 14542168333 No Longer Active Simon Castillo MD Active METFORMIN HCL 1000 MG TABS 1 by mounth twice a day METFORMIN HCL 41503986655 No Longer Active Simon Castillo MD Active LUTEIN-ZEAXANTHIN 6-1 MG TABS Take 2 by mouth daily LUTEIN-ZEAXANTHIN 24282104324 Active Simon Castillo MD Active IBUPROFEN 800 MG TABS Take 1 tab every 6 hrs prn IBUPROFEN 40376169013 No Longer Active Simon Castillo MD Active GLYBURIDE 2.5 MG TABS Take one by mouth daily GLYBURIDE 14484106709 No Longer Active Simon Castillo MD Active LANCETS MISC 2 qd LANCETS 98261659926 Active Pamela Conde Active ACACIA CONTOUR TEST STRP Use with testing twice daily GLUCOSE BLOOD 96040000846 Active Pamela Conde Active ACACIA ASPIRIN 325 MG TABS Take one by mouth daily ASPIRIN 67641443251 Active Pamela Conde Active GLYBURIDE 2.5 MG TABS Take one by mouth daily GLYBURIDE 2.5 MG TABS 138705 GLYBURIDE Inactive PREDNISONE 20 MG TAB 2 tabs daily for 4 days, 1 tab daily for 4 days, 1/2 tab daily for 4 days PREDNISONE 20 MG TAB 329722 PREDNISONE Inactive SYMBICORT 80-4.5 MCG/ACT AERO 2 puffs twice a day SYMBICORT 80-4.5 MCG/ACT AERO BUDESONIDE-FORMOTEROL FUMARATE Inactive FLONASE 50 MCG/ACT SUSP 2 puffs in each nostril daily FLONASE 50 MCG/ACT SUSP 998368 FLUTICASONE PROPIONATE Inactive ATENOLOL 50 MG TABS Take one by mouth daily ATENOLOL 50 MG TABS 172261 ATENOLOL Inactive CETIRIZINE HCL 10 MG TABS 1 po qd as needed for allergies CETIRIZINE HCL 10 MG TABS 9114851 CETIRIZINE HCL Inactive LEVAQUIN 750 MG TABS 1 po qod x 5 doses LEVAQUIN 750 MG TABS 949683 LEVOFLOXACIN Inactive GLYBURIDE 5 MG TAB Take one by mouth daily GLYBURIDE 5 MG TAB 012667 GLYBURIDE Inactive PREDNISONE 5 MG TAB Take one po qod PREDNISONE 5 MG TAB 408027 PREDNISONE Inactive AMOXICILLIN 500 MG CAPS 2 po BID x 10 days AMOXICILLIN 500 MG CAPS 910866 AMOXICILLIN Inactive GLYBURIDE 5 MG TAB Take one by mouth daily GLYBURIDE 5 MG TAB 309303 GLYBURIDE Inactive Immunizations Vaccine Administration Date Value Standard Description pneumococcal immunization administered Pneumovax 23 [CVX33] pneumococcal polysaccharide vaccine, 23 valent Vital Signs Date Name Value Unit Range Description blood pressure, diastolic 92 mm[Hg] BP catsillo blood pressure, systolic 167 mm[Hg] BP sys [...] Panel - Chemistry sodium, serum 137 mmol/L 570-798 0562/06/26 potassium, serum 5.7 mmol/L 3.5-5.2 chloride, serum 104 mmol/L 98-107 carbon dioxide, venous blood 21.2 mmol/L 21.0-32.0 blood glucose 129 mg/dL 65-110 calcium, serum 9.0 mg/dL 8.5-10.1 urea nitrogen, blood 67 mg/dL 7-18 creatinine, serum 3.30 mg/dL 0.60-1.30 sodium, serum 140 mmol/L 308-416 1939/07/10 potassium, serum 5.3 mmol/L 3.5-5.2 chloride, serum 105 mmol/L 98-107 carbon dioxide, venous blood 25.5 mmol/L 21.0-32.0 blood glucose 119 mg/dL 65-110 calcium, serum 8.9 mg/dL 8.5-10.1 urea nitrogen, blood 44 mg/dL 7-18 creatinine, serum 2.50 mg/dL 0.60-1.30 Lab Report: CBC W/DIFF, Comp. Metabolic Panel - Chemistry sodium, serum 137 mmol/L 623-623 3478/06/18 potassium, serum 5.3 mmol/L 3.5-5.2 chloride, serum [...] Panel - Chemistry sodium, serum 137 mmol/L 896-670 6585/10/14 potassium, serum 5.6 mmol/L 3.5-5.2 chloride, serum 103 mmol/L 98-107 carbon dioxide, venous blood 24.9 mmol/L 21.0-32.0 blood glucose 200 mg/dL 65-110 urea nitrogen, blood 43 mg/dL 7-18 creatinine, serum 2.60 mg/dL 0.60-1.30 calcium, serum 9.1 mg/dL 8.5-10.1 sodium, serum 139 mmol/L 665-736 5319/11/13 potassium, serum 5.8 mmol/L 3.5-5.2 chloride, serum [...] hemoglobin, RBC 29.5 pg 27.0-31.2 mean corpuscular hemoglobin, RBC 29.7 pg 27.0-31.2 mean corpuscular hemoglobin concentration, RBC 32.8 G/DL % 31.8- 35.4 red blood cell distribution width 14.7 % 11.6-14.8 platelet count 214 10^3/MM^3 10*3/mm3 590-984 8313/10/14 mean corpuscular volume, RBC 91 fL 80-97 [...] 6.9 % 4.3-6.0 sodium, serum 137 mmol/L 750-189 2242/08/21 potassium, serum 5.3 mmol/L 3.5-5.2 chloride, serum [...] 7.2 % 4.3-6.0 sodium, serum 137 mmol/L 340-191 1984/01/23 potassium, serum 5.2 mmol/L 3.5-5.2 chloride, serum [...] Panel - Chemistry sodium, serum 139 mmol/L 495-291 3062/10/21 potassium, serum 4.7 mmol/L 3.5-5.2 chloride, serum 104 mmol/L 98-107 carbon dioxide, venous blood 26.1 mmol/L 21.0-32.0 blood glucose 148 mg/dL 65-110 urea nitrogen, blood 38 mg/dL 7-18 creatinine, serum 2.60 mg/dL 0.60-1.30 calcium, serum 8.6 mg/dL 8.5-10.1 sodium, serum 140 mmol/L 110-519 0041/11/17 potassium, serum 5.0 mmol/L 3.5-5.2 chloride, serum 104 mmol/L 98-107 carbon dioxide, venous blood 24.8 mmol/L 21.0-32.0 blood glucose 146 mg/dL 65-110 urea nitrogen, blood 46 mg/dL 7- creatinine, serum 2.60 mg/dL 0.60-1.30 calcium, serum [...] mg/dL Encounters Code Encounter Date Provider Facility CPT-53184 Level 4 Est. Patient 10:10:09 [employer] Simon Castillo MD [facility] CPT-41334 Level 4 Est. Patient 11:48:19 CDT Simon Castillo MD [facility] CPT-86072 Level 4 Est. Patient 08:59:29 CDT Simon Castillo MD [facility] CPT-01634 Level 4 Est. Patient 10:52:51 [employer] Simon Castillo MD [facility] CPT-08267 Level 4 Est. Patient 11:50:30 CDT Simon Castillo MD [facility] CPT-58911 Level 4 Est. Patient 09:54:46 CDT Simon Castillo MD [facility] CPT-42150 Level 3 Est. Patient 11:10:14 CDT Simon Castillo MD [facility] CPT-00119 Level 4 Est. Patient 09:44:02 CDT Simon Castillo MD [facility] CPT-22197 Level 3 Est. Patient 09:27:48 CDT Simon Castillo MD [facility] CPT-02183 Level 3 Est. Patient 09:58:06 [employer] Simon Castillo MD [facility] CPT-07975 Level 3 Est. Patient 09:51:35 CDT Simon Castillo MD [facility] Procedures Code Procedure Name Date Entry Date Standard Description CPT-25431 Venipuncture Draw Fee 09:02:51 [employer] CPT-53490 Venipuncture Draw Fee 12:45:08 [employer] CPT-71851 Venipuncture Draw Fee 09:25:31 CDT CPT-G0008 Administration of Influenza Virus Vaccine 14:41:29 CDT CPT-28428 Fluzone High-Dose Intramuscular Suspension 14:41:29 CDT CPT-Cryo Cryotherapy 11:48:20 CDT CPT-52394 EKG Trac and Interp 09:21:58 CDT CPT-21743 Chest 2V Frontal and Lat 09:21:58 CDT CPT-Cryo Cryotherapy 10:54:51 [employer] CPT-90890 Administration 2+ single or combination vaccines inc oral 10:42:19 CDT CPT-59803 Administration single or combination vaccine inc oral 10 :42:19 CDT CPT-89599 Pneumovax 10:42:19 CDT CPT-72098 Influenza High Dose age 65+ 10:42:19 CDT CPT-38731 Administration single or combination vaccine inc oral 13 :18:54 CDT CPT-17152 Influenza High Dose age 65+ 13:18:54 CDT CPT-66674 Venipuncture Draw Fee 11:53:16 CDT CPT-28472 LS spine comp w obliq 11:03:13 CDT CPT-Cryo Cryotherapy 08:27:16 [employer] CPT-54494 Administration single or combination vaccine inc oral 10 :56:34 CDT CPT-86390 Influenza High Dose age 65+ 10:56:34 CDT
--- OUTSIDE RECORDS SUMMARY | 2018-07-20 12:54 | XMS REPORT | Clinical Summary ---
Author Author Admin, RAFFI Organization [facility] Address Unknown [...] Simon Castillo MD BRONCHITIS, ACUTE ICD-466.0 Inactive Simno Castillo MD SINUSITIS, ACUTE ICD-461.9 Inactive Simon [...] MG TABS 1 po q a.m. GLIMEPIRIDE 82259295335 Active Simon Castillo MD Active CARVEDILOL 6.25 MG TABS 1 po BID CARVEDILOL 76240184343 Active Simon Castillo MD Active LISINOPRIL-HYDROCHLOROTHIAZIDE 20-12.5 MG TABS 1/2 tab by mouth daily LISINOPRIL-HYDROCHLOROTHIAZIDE 06762705820 Active Simon Castillo MD Active PREDNISONE 5 MG TABS 1 po qod PREDNISONE 29977800201 Active Giles Tatum APRN Active TRAMADOL HCL 50 MG TABS 1-2 tablets every 6 hours as needed for pain TRAMADOL HCL 39458864262 Active Simon Castillo MD Active PREDNISONE 5 MG TAB Take one po qod PREDNISONE 12610922985 No Longer Active Simon Castillo MD Active GLYBURIDE 5 MG TAB Take one by mouth daily GLYBURIDE 13926386609 No Longer Active Simon Castillo MD Active LEVAQUIN 750 MG TABS 1 po qod x 5 doses LEVOFLOXACIN 61823164803 No Longer Active Simon Castillo MD Active CETIRIZINE HCL 10 MG TABS 1 po qd as needed for allergies CETIRIZINE HCL 59794414747 No Longer Active Simon Castillo MD Active FISH OIL 1000 MG CPDR 1 pill by mouth twice daily for cholesterol OMEGA -3 FATTY ACIDS 17312689261 Active Simon Castillo MD Active BILBERRY CAPS 1 tab daily BILBERRY (VACCINIUM MYRTILLUS) CAPS 73493342006 Active Simon Castillo MD Active ATENOLOL 50 MG TABS Take one by mouth daily ATENOLOL 33899822939 No Longer Active Simon Castillo MD Active FLONASE 50 MCG/ACT SUSP 2 puffs in each nostril daily FLUTICASONE PROPIONATE 60146277898 No Longer Active Simon Castillo MD Active GLYBURIDE 5 MG TAB Take one by mouth daily GLYBURIDE 86547249819 No Longer Active Simon Castillo MD Active SYMBICORT 80-4.5 MCG/ACT AERO 2 puffs twice a day BUDESONIDE-FORMOTEROL FUMARATE 34013514753 No Longer Active Simon Castillo MD Active PREDNISONE 20 MG TAB 2 tabs daily for 4 days, 1 tab daily for 4 days, 1/2 tab daily for 4 days PREDNISONE 74921511869 No Longer Active Simon Castillo MD Active AMOXICILLIN 500 MG CAPS 2 po BID x 10 days AMOXICILLIN 32534220551 No Longer Active Simon Castillo MD Active METFORMIN HCL 1000 MG TABS 1 by mounth twice a day METFORMIN HCL 33138280807 No Longer Active Simon Castillo MD Active LUTEIN-ZEAXANTHIN 6-1 MG TABS Take 2 by mouth daily LUTEIN-ZEAXANTHIN 71045701727 Active Simon Castillo MD Active IBUPROFEN 800 MG TABS Take 1 tab every 6 hrs prn IBUPROFEN 95722899552 No Longer Active Simon Castillo MD Active GLYBURIDE 2.5 MG TABS Take one by mouth daily GLYBURIDE 64280101794 No Longer Active Simon Castillo MD Active LANCETS MISC 2 qd LANCETS 25904353817 Active Pamela Conde Active ACACIA CONTOUR TEST STRP Use with testing twice daily GLUCOSE BLOOD 12691775209 Active Pamela Conde Active ACACIA ASPIRIN 325 MG TABS Take one by mouth daily ASPIRIN 24329785825 Active Pamela Conde Active GLYBURIDE 2.5 MG TABS Take one by mouth daily GLYBURIDE 2.5 MG TABS 422011 GLYBURIDE Inactive PREDNISONE 20 MG TAB 2 tabs daily for 4 days, 1 tab daily for 4 days, 1/2 tab daily for 4 days PREDNISONE 20 MG TAB 111813 PREDNISONE Inactive SYMBICORT 80-4.5 MCG/ACT AERO 2 puffs twice a day SYMBICORT 80-4.5 MCG/ACT AERO BUDESONIDE-FORMOTEROL FUMARATE Inactive FLONASE 50 MCG/ACT SUSP 2 puffs in each nostril daily FLONASE 50 MCG/ACT SUSP 686850 FLUTICASONE PROPIONATE Inactive ATENOLOL 50 MG TABS Take one by mouth daily ATENOLOL 50 MG TABS 528307 ATENOLOL Inactive CETIRIZINE HCL 10 MG TABS 1 po qd as needed for allergies CETIRIZINE HCL 10 MG TABS 6055085 CETIRIZINE HCL Inactive LEVAQUIN 750 MG TABS 1 po qod x 5 doses LEVAQUIN 750 MG TABS 959511 LEVOFLOXACIN Inactive GLYBURIDE 5 MG TAB Take one by mouth daily GLYBURIDE 5 MG TAB 357755 GLYBURIDE Inactive PREDNISONE 5 MG TAB Take one po qod PREDNISONE 5 MG TAB 495111 PREDNISONE Inactive AMOXICILLIN 500 MG CAPS 2 po BID x 10 days AMOXICILLIN 500 MG CAPS 958381 AMOXICILLIN Inactive GLYBURIDE 5 MG TAB Take one by mouth daily GLYBURIDE 5 MG TAB 884664 GLYBURIDE Inactive Immunizations Vaccine Administration Date Value [...] Panel - Chemistry sodium, serum 137 mmol/L 062-805 9471/06/26 potassium, serum 5.7 mmol/L 3.5-5.2 chloride, serum 104 mmol/L 98-107 carbon dioxide, venous blood 21.2 mmol/L 21.0-32.0 blood glucose 129 mg/dL 65-110 calcium, serum 9.0 mg/dL 8.5-10.1 urea nitrogen, blood 67 mg/dL 7-18 creatinine, serum 3.30 mg/dL 0.60-1.30 sodium, serum 140 mmol/L 227-350 3690/07/10 potassium, serum 5.3 mmol/L 3.5-5.2 chloride, serum 105 mmol/L 98-107 carbon dioxide, venous blood 25.5 mmol/L 21.0-32.0 blood glucose 119 mg/dL 65-110 calcium, serum 8.9 mg/dL 8.5-10.1 urea nitrogen, blood 44 mg/dL 7-18 creatinine, serum 2.50 mg/dL 0.60-1.30 Lab Report: CBC W/DIFF, Comp. Metabolic Panel - Chemistry sodium, serum 137 mmol/L 513-778 2394/06/18 potassium, serum 5.3 mmol/L 3.5-5.2 chloride, serum [...] Panel - Chemistry sodium, serum 137 mmol/L 893-735 2912/10/14 potassium, serum 5.6 mmol/L 3.5-5.2 chloride, serum 103 mmol/L 98-107 carbon dioxide, venous blood 24.9 mmol/L 21.0-32.0 blood glucose 200 mg/dL 65-110 urea nitrogen, blood 43 mg/dL 7-18 creatinine, serum 2.60 mg/dL 0.60-1.30 calcium, serum 9.1 mg/dL 8.5-10.1 sodium, serum 139 mmol/L 717-124 5860/11/13 potassium, serum 5.8 mmol/L 3.5-5.2 chloride, serum 105 mmol/L 98-107 carbon dioxide, venous blood 22.2 mmol/L 21.0-32.0 blood glucose 156 mg/dL 65-110 urea nitrogen, blood 49 mg/dL 7-18 creatinine, serum 2.30 mg/dL 0.60-1.30 calcium, serum 9.2 mg/dL 8.5-10.1 sodium, serum 140 mmol/L 271-444 6115/12/12 potassium, serum 5.5 mmol/L 3.5-5.2 chloride, serum [...] % 11.6-14.8 platelet count 217 10^3/MM^3 10*3/mm3 161-020 0740/10/14 leukocyte count, blood 9.2 10^3/MM^3 10*3/mm3 4.6-10.2 erythrocyte (RBC) count 4.67 10^6/MM^3 10*6/mm3 4.69-6.13 hemoglobin, blood 13.9 g/dL 13.5-17.5 hematocrit, blood 42.4 % 41.0-53.0 mean corpuscular volume, RBC 91 fL 80-97 mean corpuscular hemoglobin, RBC 29.7 pg 27.0-31.2 mean corpuscular hemoglobin concentration, RBC 32.8 G/DL % 31.8- 35.4 red blood cell distribution width 14.7 % 11.6-14.8 platelet count 214 10^3/MM^3 10*3/mm3 442-671 7425/11/13 leukocyte count, blood 9.7 10^3/MM^3 10*3/mm3 4.6-10.2 [...] 6.9 % 4.3-6.0 sodium, serum 137 mmol/L 358-326 1479/08/21 potassium, serum 5.3 mmol/L 3.5-5.2 chloride, serum 104 mmol/L 98-107 carbon dioxide, venous blood 20.4 mmol/L 21.0-32.0 blood glucose 173 mg/dL 65-110 calcium, serum 8.7 mg/dL 8.5-10.1 urea nitrogen, blood 46 mg/dL 7-18 creatinine, serum 2.60 mg/dL 0.60-1.30 Lab Report: Prostatic Specific Ag - Chemistry prostate specific antigen 1.52 ng/mL 0.00-4.00 Lab Report: Renal Panel - Chemistry sodium, serum 140 mmol/L 539-978 0804/11/17 potassium, serum 5.0 mmol/L 3.5-5.2 chloride, serum 104 mmol/L 98-107 carbon dioxide, venous blood 24.8 mmol/L 21.0-32.0 blood glucose 146 mg/dL 65-110 urea nitrogen, blood 46 mg/dL 7-18 creatinine, serum 2.60 mg/dL 0.60-1.30 calcium, serum 9.2 mg/dL 8.5-10.1 sodium, serum 139 mmol/L 163-727 6948/10/21 potassium, serum 4.7 mmol/L 3.5-5.2 chloride, serum [...] mg/dL Encounters Code Encounter Date Provider Facility CPT-67365 Level 4 Est. Patient 10:10:09 [employer]BAT [employer]OL Simon Castillo MD [facility] CPT-59827 Level 4 Est. Patient 11:48:19 CDT Simon Castillo MD [facility] CPT-42116 Level 4 Est. Patient 08:59:29 CDT Simon Castillo MD [facility] CPT-29147 Level 4 Est. Patient 10:52:51 COMBAT CONTROL Simon Castillo MD [facility] CPT-08249 Level 4 Est. Patient 11:50:30 CDT Simon Castillo MD [facility] CPT-95309 Level 4 Est. Patient 09:54:46 CDT Simon Castillo MD [facility] CPT-24724 Level 3 Est. Patient 11:10:14 CDT Simon Castillo MD [facility] CPT-89467 Level 4 Est. Patient 09:44:02 CDT Simon Castillo MD [facility] CPT-31755 Level 3 Est. Patient 09:27:48 CDT Simon Castillo MD [facility] CPT-42280 Level 3 Est. Patient 09:58:06 COMBAT [employer]OL Simon Castillo MD [facility] CPT-46787 Level 3 Est. Patient 09:51:35 CDT Simon Castillo MD [facility] Procedures Code Procedure Name Date Entry Date Standard Description CPT-16869 Venipuncture Draw Fee 08:07:29 [employer]AT [employer] CPT-93889 Venipuncture Draw Fee 09:02:51 [employer] CPT-08713 Venipuncture Draw Fee 12:45:08 [employer] CPT-12564 Venipuncture Draw Fee 09:25:31 CDT CPT-G0008 Administration of Influenza Virus Vaccine 14:41:29 CDT CPT-34864 Fluzone High-Dose Intramuscular Suspension 14:41:29 CDT CPT-Cryo Cryotherapy 11:48:20 CDT CPT-38960 EKG Trac and Interp 09:21:58 CDT CPT-55564 Chest 2V Frontal and Lat 09:21:58 CDT CPT-Cryo Cryotherapy 10:54:51 COMBAT [employer]OL CPT-65339 Administration 2+ single or combination vaccines inc oral 10:42:19 CDT CPT-89759 Administration single or combination vaccine inc oral 10 :42:19 CDT CPT-45832 Pneumovax 10:42:19 CDT CPT-30408 Influenza High Dose age 65+ 10:42:19 CDT CPT-48051 Administration single or combination vaccine inc oral 13 :18:54 CDT CPT-20051 Influenza High Dose age 65+ 13:18:54 CDT CPT-58279 Venipuncture Draw Fee 11:53:16 CDT CPT-42416 LS spine comp w obliq 11:03:13 CDT CPT-Cryo Cryotherapy 08:27:16 COMBAT CONTROL CPT-76814 Administration single or combination vaccine inc oral 10 :56:34 CDT CPT-05226 Influenza High Dose age 65+ 10:56:34 CDT
--- OUTSIDE RECORDS SUMMARY | 2018-07-20 12:55 | XMS REPORT | Clinical Summary ---
Author Author Admin, RAFFI Organization [facility] Address Unknown Phone Unavailable Allergies, Adverse Reactions, [...] MD Acute bronchitis HEALTH SCREENING V70.0 Active Simno Castillo MD Routine general medical examination at [...] TABS 1 tablet by mouth daily LISINOPRIL 84855378488 Active Simon Castillo MD Active GLIMEPIRIDE 1 MG TABS 1 po q a.m. GLIMEPIRIDE 26436977487 Active Simon Castillo MD Active CARVEDILOL 6.25 MG TABS 1 po BID CARVEDILOL 24261502815 Active Simon Castillo MD Active LISINOPRIL-HYDROCHLOROTHIAZIDE 20-12.5 MG TABS 1/2 tab by mouth daily LISINOPRIL-HYDROCHLOROTHIAZIDE 73403237016 No Longer Active Simon Castillo MD Active PREDNISONE 5 MG TABS 1 po qod PREDNISONE 44889229262 Active Simon Castillo MD Active TRAMADOL HCL 50 MG TABS 1-2 tablets every 6 hours as needed for pain TRAMADOL HCL 01402914175 Active Simon Castillo MD Active PREDNISONE 5 MG TAB Take one po qod PREDNISONE 83089949291 No Longer Active Simon Castillo MD Active GLYBURIDE 5 MG TAB Take one by mouth daily GLYBURIDE 40143284787 No Longer Active iSmon Castillo MD Active LEVAQUIN 750 MG TABS 1 po qod x 5 doses LEVOFLOXACIN 69277087715 No Longer Active Simon Castillo MD Active CETIRIZINE HCL 10 MG TABS 1 po qd as needed for allergies CETIRIZINE HCL 34563795161 No Longer Active Simon Castillo MD Active FISH OIL 1000 MG CPDR 1 pill by mouth twice daily for cholesterol OMEGA -3 FATTY ACIDS 22765777915 Active Simon Castillo MD Active BILBERRY CAPS 1 tab daily BILBERRY (VACCINIUM MYRTILLUS) CAPS 08780578945 Active Simon Castillo MD Active ATENOLOL 50 MG TABS Take one by mouth daily ATENOLOL 02607582214 No Longer Active Simon Castillo MD Active FLONASE 50 MCG/ACT SUSP 2 puffs in each nostril daily FLUTICASONE PROPIONATE 16460261445 No Longer Active Simon Castillo MD Active GLYBURIDE 5 MG TAB Take one by mouth daily GLYBURIDE 02844327598 No Longer Active Simon Castillo MD Active SYMBICORT 80-4.5 MCG/ACT AERO 2 puffs twice a day BUDESONIDE-FORMOTEROL FUMARATE 62769936780 No Longer Active Simon Castillo MD Active PREDNISONE 20 MG TAB 2 tabs daily for 4 days, 1 tab daily for 4 days, 1/2 tab daily for 4 days PREDNISONE 62308773630 No Longer Active Simon Castillo MD Active AMOXICILLIN 500 MG CAPS 2 po BID x 10 days AMOXICILLIN 32097515385 No Longer Active Simon Castillo MD Active METFORMIN HCL 1000 MG TABS 1 by [facility] twice a day METFORMIN HCL 13364200311 No Longer Active Simon Castillo MD Active LUTEIN-ZEAXANTHIN 6-1 MG TABS Take 2 by mouth daily LUTEIN-ZEAXANTHIN 17713092702 Active Simon Castillo MD Active IBUPROFEN 800 MG TABS Take 1 tab every 6 hrs prn IBUPROFEN 34584096324 No Longer Active Simon Castillo MD Active GLYBURIDE 2.5 MG TABS Take one by mouth daily GLYBURIDE 65691410297 No Longer Active Simon Castillo MD Active L[facility]ETS MISC 2 [facility]d [facility] 30[facility]7629[facility] Active Pamela Conde Active ACACIA CONTOUR TEST STRP Use with testing twice daily GLUCOSE BLOOD 98618672926 Active Pamela Conde Active ACACIA ASPIRIN 325 MG TABS Take one by mouth daily ASPIRIN 23216343222 Active Pamela Conde Active GLYBURIDE 2.5 MG TABS Take one by mouth daily GLYBURIDE 2.5 MG TABS 183264 GLYBURIDE Inactive PREDNISONE 20 MG TAB 2 tabs daily for 4 days, 1 tab daily for 4 days, 1/2 tab daily for 4 days PREDNISONE 20 MG TAB 326311 PREDNISONE Inactive SYMBICORT 80-4.5 MCG/ACT AERO 2 puffs twice a day SYMBICORT 80-4.5 MCG/ACT AERO BUDESONIDE-FORMOTEROL FUMARATE Inactive FLONASE 50 MCG/ACT SUSP 2 puffs in each nostril daily FLONASE 50 MCG/ACT SUSP 248996 FLUTICASONE PROPIONATE Inactive ATENOLOL 50 MG TABS Take one by mouth daily ATENOLOL 50 MG TABS 425278 ATENOLOL Inactive CETIRIZINE HCL 10 MG TABS 1 po qd as needed for allergies CETIRIZINE HCL 10 MG TABS 8301123 CETIRIZINE HCL Inactive LEVAQUIN 750 MG TABS 1 po qod x 5 doses LEVAQUIN 750 MG TABS 603033 LEVOFLOXACIN Inactive GLYBURIDE 5 MG TAB Take one by mouth daily GLYBURIDE 5 MG TAB 845793 GLYBURIDE Inactive PREDNISONE 5 MG TAB Take one po qod PREDNISONE 5 MG TAB 514979 PREDNISONE Inactive AMOXICILLIN 500 MG CAPS 2 po BID x 10 days AMOXICILLIN 500 MG CAPS 054492 AMOXICILLIN Inactive GLYBURIDE 5 MG TAB Take one by mouth daily GLYBURIDE 5 MG TAB 038326 GLYBURIDE Inactive Immunizations Vaccine Administration Date Value [...] Panel - Chemistry sodium, serum 137 mmol/L 840-415 0919/06/26 potassium, serum 5.7 mmol/L 3.5-5.2 chloride, serum 104 mmol/L 98-107 carbon dioxide, venous blood 21.2 mmol/L 21.0-32.0 blood glucose 129 mg/dL 65-110 calcium, serum 9.0 mg/dL 8.5-10.1 urea nitrogen, blood 67 mg/dL 7-18 creatinine, serum 3.30 mg/dL 0.60-1.30 sodium, serum 140 mmol/L 330-354 3968/07/10 potassium, serum 5.3 mmol/L 3.5-5.2 chloride, serum 105 mmol/L 98-107 carbon dioxide, venous blood 25.5 mmol/L 21.0-32.0 blood glucose 119 mg/dL 65-110 calcium, serum 8.9 mg/dL 8.5-10.1 urea nitrogen, blood 44 mg/dL 7-18 creatinine, serum 2.50 mg/dL 0.60-1.30 Lab Report: CBC W/DIFF, Comp. Metabolic Panel - Chemistry sodium, serum 137 mmol/L 315-368 3416/06/18 potassium, serum 5.3 mmol/L 3.5-5.2 chloride, serum [...] Panel - Chemistry sodium, serum 137 mmol/L 443-809 0469/10/14 potassium, serum 5.6 mmol/L 3.5-5.2 chloride, serum 103 mmol/L 98-107 carbon dioxide, venous blood 24.9 mmol/L 21.0-32.0 blood glucose 200 mg/dL 65-110 urea nitrogen, blood 43 mg/dL 7-18 creatinine, serum 2.60 mg/dL 0.60-1.30 calcium, serum 9.1 mg/dL 8.5-10.1 sodium, serum 139 mmol/L 166-936 1854/11/13 potassium, serum 5.8 mmol/L 3.5-5.2 chloride, serum 105 mmol/L 98-107 carbon dioxide, venous blood 22.2 mmol/L 21.0-32.0 blood glucose 156 mg/dL 65-110 urea nitrogen, blood 49 mg/dL 7-18 creatinine, serum 2.30 mg/dL 0.60-1.30 calcium, serum 9.2 mg/dL 8.5-10.1 sodium, serum 140 mmol/L 119-278 7180/12/12 potassium, serum 5.5 mmol/L 3.5-5.2 chloride, serum [...] % 11.6-14.8 platelet count 217 10^3/MM^3 10*3/mm3 276-764 4422/10/14 leukocyte count, blood 9.2 10^3/MM^3 10*3/mm3 4.6-10.2 erythrocyte (RBC) count 4.67 10^6/MM^3 10*6/mm3 4.69-6.13 hemoglobin, blood 13.9 g/dL 13.5-17.5 hematocrit, blood 42.4 % 41.0-53.0 mean corpuscular volume, RBC 91 fL 80-97 mean corpuscular hemoglobin, RBC 29.7 pg 27.0-31.2 mean corpuscular hemoglobin concentration, RBC 32.8 G/DL % 31.8- 35.4 red blood cell distribution width 14.7 % 11.6-14.8 platelet count 214 10^3/MM^3 10*3/mm3 726-445 1883/11/13 leukocyte count, blood 9.7 10^3/MM^3 10*3/mm3 4.6-10.2 [...] 6.9 % 4.3-6.0 sodium, serum 137 mmol/L 409-485 7217/08/21 potassium, serum 5.3 mmol/L 3.5-5.2 chloride, serum 104 mmol/L 98-107 carbon dioxide, venous blood 20.4 mmol/L 21.0-32.0 blood glucose 173 mg/dL 65-110 calcium, serum 8.7 mg/dL 8.5-10.1 urea nitrogen, blood 46 mg/dL 7-18 creatinine, serum 2.60 mg/dL 0.60-1.30 Lab Report: Prostatic Specific Ag - Chemistry prostate specific antigen 1.52 ng/mL 0.00-4.00 Lab Report: Renal Panel - Chemistry sodium, serum 140 mmol/L 553-222 1896/11/17 potassium, serum 5.0 mmol/L 3.5-5.2 chloride, serum 104 mmol/L 98-107 carbon dioxide, venous blood 24.8 mmol/L 21.0-32.0 blood glucose 146 mg/dL 65-110 urea nitrogen, blood 46 mg/dL 7-18 creatinine, serum 2.60 mg/dL 0.60-1.30 calcium, serum 9.2 mg/dL 8.5-10.1 sodium, serum 139 mmol/L 804-436 6543/10/21 potassium, serum 4.7 mmol/L 3.5-5.2 chloride, serum [...] mg/dL Encounters Code Encounter Date Provider Facility CPT-14184 Level 4 Est. Patient 10:17:25 CDT Simon Castillo MD [facility] CPT-98354 Level 4 Est. Patient 10:10:09 LEAF TIER Simon Castillo MD [facility] CPT-68478 Level 4 Est. Patient 11:48:19 CDT Simon Castillo MD [facility] CPT-61142 Level 4 Est. Patient 08:59:29 CDT Simon Castillo MD [facility] CPT-20802 Level 4 Est. Patient 10:52:51 LEAF TIER Simon Castillo MD [facility] CPT-62130 Level 4 Est. Patient 11:50:30 CDT Simon Castillo MD [facility] CPT-76293 Level 4 Est. Patient 09:54:46 CDT Simon Castillo MD [facility] CPT-33564 Level 3 Est. Patient 11:10:14 CDT Simon Castillo MD [facility] CPT-82349 Level 4 Est. Patient 09:44:02 CDT Simon Castillo MD [facility] CPT-95964 Level 3 Est. Patient 09:27:48 CDT Simon Castillo MD [facility] CPT-78026 Level 3 Est. Patient 09:58:06 LEAF TIER Simon Castillo MD [facility] CPT-25767 Level 3 Est. Patient 09:51:35 CDT Simon Castillo MD [facility] Procedures Code Procedure Name Date Entry Date Standard Description CPT-86103 Venipuncture Draw Fee 08:07:29 LEAF TIER CPT-09434 Venipuncture Draw Fee 09:02:51 LEAF TIER CPT-60118 Venipuncture Draw Fee 12:45:08 LEAF TIER CPT-86583 Venipuncture Draw Fee 09:25:31 CDT CPT-G0008 Administration of Influenza Virus Vaccine 14:41:29 CDT CPT-69026 Fluzone High-Dose Intramuscular Suspension 14:41:29 CDT CPT-Cryo Cryotherapy 11:48:20 CDT CPT-36918 EKG Trac and Interp 09:21:58 CDT CPT-83383 Chest 2V Frontal and Lat 09:21:58 CDT CPT-Cryo Cryotherapy 10:54:51 LEAF TIER CPT-77675 Administration 2+ single or combination vaccines inc oral 10:42:19 CDT CPT-96204 Administration single or combination vaccine inc oral 10 :42:19 CDT CPT-98319 Pneumovax 10:42:19 CDT CPT-39124 Influenza High Dose age 65+ 10:42:19 CDT CPT-42531 Administration single or combination vaccine inc oral 13 :18:54 CDT CPT-54083 Influenza High Dose age 65+ 13:18:54 CDT CPT-39323 Venipuncture Draw Fee 11:53:16 CDT CPT-72555 LS spine comp w obliq 11:03:13 CDT CPT-Cryo Cryotherapy 08:27:16 LEAF TIER CPT-99177 Administration single or combination vaccine inc oral 10 :56:34 CDT CPT-60170 Influenza High Dose age 65+ 10:56:34 CDT
--- NOTE | 2018-07-20 13:19 | Pulmonary Consultation ---
History of Present Illness History of Present Illness Date of Consultation 07/20/18 13:15 Date of Admission Allergies and Home Medications Allergies Coded Allergies: No Known Drug Allergies (Unverified , 03/31/18) Home Medications Acetaminophen 325 Mg Tablet, 650 MG PO Q4H PRN for PAIN-MILD, (Reported) TAKES 2 (325MG) TABLETS Apixaban 2.5 Mg Tablet, 2.5 MG PO Q12H, (Reported) Bisacodyl 10 Mg Supp.rect, 10 MG RC DAILY PRN for CONSTIPATION-4TH LINE, ( Reported) Bumetanide 1 Mg Tablet, 1 MG PO SuMoWeFr, (Reported) Cetirizine HCl 10 Mg Tablet, 10 MG PO DAILY, (Reported) Docusate Sodium 100 Mg Capsule, 100 MG PO DAILY, (Reported) Ergocalciferol (Vitamin D2) 50,000 Unit Capsule, 50,000 UNIT PO Tu, (Reported) Flecainide Acetate 50 Mg Tablet, 50 MG PO DAILY, (Reported) Glimepiride 4 Mg Tablet, 4 MG PO BID, (Reported) Hydrocortisone Acetate 25 Mg Supp.rect, 25 MG RC Q4H PRN for HEMORRHOIDS, ( Reported) Insulin Determir 1,000 Units/10 Ml Soln, 4 UNITS SQ BID, (Reported) Magnesium Hydroxide 400 Mg/5 Ml Oral.susp, 30 ML PO DAILY PRN for CONSTIPATION- 7TH LINE, (Reported) Melatonin 3 Mg Tablet, 6 MG PO HS, (Reported) Na Phos,M-B/Na Phos,Di-Ba 133 Ml Enema, RC DAILY PRN for IN NO RESULTS FROM SUPP IN 4HR, (Reported) Ondansetron 4 Mg Tab.rapdis, 4 MG SL Q6H PRN for NAUSEA/VOMITING-1ST LINE, ( Reported) Pioglitazone HCl 30 Mg Tablet, 30 MG PO DAILY, (Reported) Prednisone 5 Mg Tablet, 5 MG PO BID, (Reported) Tamsulosin HCl 0.4 Mg Cap.er.24h, 0.4 MG PO DAILY, (Reported) Past Rnixhsk-Ipdwox-Xdvpig Hx Patient Social History Alcohol Use: Occasionally Uses Number of Drinks Today: AA Alcohol Beverage of Choice: Beer Recreational Drug Use: No Smoking Status: Former Smoker Type Used: Cigars, Cigarettes Former Smoker, Quit: Apr 01, 1978 Recent Foreign Travel: No Contact w/Someone Who Travel: No Recent Infectious Disease Expo: No Recent Hopitalizations: Yes Seasonal Allergies Seasonal Allergies: No Past Medical History Surgeries: Yes (hernia, port in right upper chest) Respiratory: No Cardiac: Yes Hypertension Neurological: No Genitourinary: No Benign Prostatic Hyperpl, Kidney Infection, Dialysis Gastrointestinal: Yes Abdominal Hernia, Gastroesophageal Reflux Musculoskeletal: Yes Arthritis, Rheumatoid Arthritis Endocrine: Yes Diabetes, Non-Insulin dep HEENT: Yes Macular Degeneration Cancer: No Psychosocial: No Integumentary: Yes Psoriasis Blood Disorders: No Adverse Reaction/Blood Tranf: No Sepsis Event Evaluation Height, Weight, BMI Height: 5'7.00" Weight: 200lbs. 0.0oz. 90.724947wl; 32.9 BMI Method:Stated Exam Exam Vital Signs Date Time Temp Pulse Resp B/P (MAP) Pulse Ox O2 Delivery O2 Flow Rate FiO2 07/20/18 12:25 98.7 103 16 120/63 (82) 96 Nasal Cannula 2.00 07/20/18 09:25 95 Nasal Cannula 2.00 07/20/18 09:20 99.0 113 102/63 (76) 94 Room Air Height & Weight Height: 5'7.00" Weight: 200lbs. 0.0oz. 90.388458nz; 32.9 BMI Method:Stated Capillary Refill: Less Than 3 Seconds Results Lab Laboratory Tests 07/20/18 09:49 Assessment/Plan Assessment/Plan Sepsis with influenza B and UTI -Hebert cultures -IVF -Tamiflu Metabolic lactic acidosis -IVF Chronic Renal Failure Afib Tamiflu LORNA VERA DO Jul 20, 2018 13:19
--- OUTSIDE RECORDS SUMMARY | 2018-07-20 13:20 | XMS REPORT | Continuity of Care Document ---
Demographics x Preferred Language Unknown Marital Status Unknown Cheondoism Affiliation Unknown Race Unknown Ethnic Group Unknown Author Author [facility] Organization [facility] Address Unknown Phone Unavailable Allergies Active Description Code Type Severity Reaction Onset Reported/Identified Relationship to Patient Clinical Status Yes No known allergies Drug N/A N/A Yes No Known Medication Allergies Drug N/A N/A Yes No Known Drug Allergies [id number] N/A N/A Yes No Known Drug Allergies [id number] Drug Allergy Unknown N/A 03/31/2018 Medications There is no data. 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 07/04/2017 Anna ARTIS, Simon L57.0 Actinic keratosis 09/29/2017 Anna ARTIS, Simon L08.89 abrasion, face, infected 09/29/2017 Simon Castillo MD L98.9 Lesion of skin of face 09/29/2017 Anna ARTIS, Simon R55 Syncope and collapse 09/29/2017 Simon Castillo MD T14.8xxA Other injury of unspecified body region, initial encounter 12/29/2017 Simon Castillo MD J20.9 Bronchitis, acute with mild bronchospasm 02/23/2018 Simon Castillo MD L02.93 Carbuncle 02/23/2018 Simon Castillo MD R06.09 Dyspnea on exertion 02/23/2018 Simon Castillo MD R07.89 Chest pain, atypical 02/23/2018 Simon Castillo MD D64.9 Anemia 02/23/2018 Simon Castillo MD I50.9 Heart failure 04/01/2018 KRISTA EPSTEIN MD, Ot D64.9 ANEMIA, UNSPECIFIED 04/01/2018 KRISTA EPSTEIN MD Ot 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 04/01/2018 KRISTA EPSTEIN MD Ot I12.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 04/01/2018 KRISTA EPSTEIN MD, Ot 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, UNSPECIFIED 04/01/2018 KRISTA EPSTEIN MD Ot N18.6 END STAGE RENAL DISEASE 04/01/2018 KRISTA EPSTEIN MD Ot R07.2 PRECORDIAL PAIN 04/01/2018 KRISTA EPSTEIN MD Ot R94.8 ABNORMAL RESULTS OF FUNCTION STUDIES OF 04/01/2018 KRISTA EPSTEIN MD, Ot Z79.4 SENIOR CARE (CURRENT) USE OF INSULIN 04/01/2018 KRISTA EPSTEIN MD Ot Z79.899 OTHER PROVIDER SERVICE REPRESENTATIVE (CURRENT) DRUG THERAPY 04/01/2018 KRISTA EPSTEIN MD, Ot Z87.891 PERSONAL HISTORY OF NICOTINE DEPENDENCE 04/01/2018 KRISTA EPSTEIN MD Ot Z99.2 DEPENDENCE ON RENAL DIALYSIS 04/01/2018 KRISTA EPSTEIN MD, Ot D64.9 ANEMIA, UNSPECIFIED 04/01/2018 KRISTA EPSTEIN MD Ot 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 04/01/2018 KRISTA EPSTEIN MD Ot I12.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 04/01/2018 KRISTA EPSTEIN MD Ot 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, UNSPECIFIED 04/01/2018 KRISTA EPSTEIN MD Ot N18.6 END STAGE RENAL DISEASE 04/01/2018 KRISTA EPSTEIN MD Ot R07.2 PRECORDIAL PAIN 04/01/2018 KRISTA EPSTEIN MD Ot R94.8 ABNORMAL RESULTS OF FUNCTION STUDIES OF 04/01/2018 KRISTA EPSTEIN MD Ot Z79.4 SENIOR CARE (CURRENT) USE OF INSULIN 04/01/2018 KRISTA EPSTEIN MD Ot Z79.899 OTHER SENIOR CARE (CURRENT) DRUG THERAPY 04/01/2018 KRISTA EPSTEIN MD Ot Z87.891 PERSONAL HISTORY OF NICOTINE DEPENDENCE 04/01/2018 KRISTA EPSTEIN MD Ot Z99.2 DEPENDENCE ON RENAL DIALYSIS 04/03/2018 KRISTA EPSTEIN MD Ot D64.9 ANEMIA, UNSPECIFIED 04/03/2018 KRISTA EPSTEIN MD Ot 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 04/03/2018 KRISTA EPSTEIN MD Ot I12.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 04/03/2018 KRISTA EPSTEIN MD Ot 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, UNSPECIFIED 04/03/2018 KRISTA EPSTEIN MD Ot N18.6 END STAGE RENAL DISEASE 04/03/2018 KRISTA EPSTEIN MD Ot R07.2 PRECORDIAL PAIN 04/03/2018 KRISTA EPSTEIN MD Ot R94.8 ABNORMAL RESULTS OF FUNCTION STUDIES OF 04/03/2018 KRISTA EPSTEIN MD Ot Z79.4 SENIOR CARE (CURRENT) USE OF INSULIN 04/03/2018 KRISTA EPSTEIN MD Ot Z79.899 OTHER SENIOR CARE (CURRENT) DRUG THERAPY 04/03/2018 KRISTA EPSTEIN MD Ot Z87.891 PERSONAL HISTORY OF NICOTINE DEPENDENCE 04/03/2018 KRISTA EPSTEIN MD Ot Z99.2 DEPENDENCE ON RENAL DIALYSIS 04/13/2018 ZECHARIAH ADAMS MD Ot N18.9 CHRONIC KIDNEY DISEASE, UNSPECIFIED 05/04/2018 P [id number] Other difficulties with micturition 05/07/2018 P F15460 Other difficulties with micturition Procedures Code Description Per[place]formed On D0140 LIMIT ORAL EVAL PROBLM FOCUS 02/15/2014 D0220 INTRAORAL PERIAPICAL FIRST F 02/15/2014 D7140 EXTRACTION ERUPTED TOOTH/ EXR 02/15/2014 D7140 EXTRACTION ERUPTED TOOTH/ EXR 04/06/2014 72165 JOINT SURVEY SINGLE VIEW 11/07/2015 34109 OFFICE/OUTPATIENT VISIT NEW 11/07/2015 32308 X-RAY EXAM OF ELBOW 11/14/2015 62741 OFFICE/OUTPATIENT VISIT EST 02/20/2016 95027 FIBRIN DEGRADATION, QUANT 02/26/2016 42591 LUNG PERFUSION IMAGING 02/27/2016 A9540 TC 99M MAA UP TO 10 02/27/2016 Results Test Result Range D DIMER - 02/26/16 00:00 DDIM 1240 NG/ML 0-400 Comprehensive metabolic panel - 03/31/18 16:10 Serum or plasma sodium measurement (moles/volume) 135 mmol/L 135-145 Serum or plasma potassium measurement (moles/volume) 3.8 mmol/L 3.6-5.0 Serum or plasma chloride measurement (moles/volume) 97 mmol/L 98-107 Carbon dioxide 23 mmol/L 21-32 Serum or plasma anion gap determination (moles/volume) 15 mmol/L 5-14 Serum or plasma urea nitrogen measurement (mass/volume) 14 mg/dL 7-18 Serum or plasma creatinine measurement (mass/volume) 2.14 mg/dL 0.60-1.30 Serum or plasma urea nitrogen/creatinine mass ratio 7 NRG Serum or plasma creatinine measurement with calculation of estimated glomerular filtration rate 30 NRG Serum or plasma glucose measurement (mass/volume) 427 mg/dL 70-105 Serum or plasma calcium measurement (mass/volume) 8.9 mg/dL 8.5-10.1 Serum or plasma total bilirubin measurement (mass/volume) 0.5 mg/dL 0.1-1.0 Serum or plasma alkaline phosphatase measurement (enzymatic activity/volume) 73 U/L 40-136 Serum or plasma aspartate aminotransferase measurement (enzymatic activity/ volume) 15 U/L 5-34 Serum or plasma alanine aminotransferase measurement (enzymatic activity/volume ) 8 U/L 0-55 Serum or plasma protein measurement (mass/volume) 6.5 g/dL 6.4-8.2 Serum or plasma albumin measurement (mass/volume) 3.8 g/dL 3.2-4.5 Magnesium - 03/31/18 16:10 Magnesium 1.8 mg/dL 1.8-2.4 Serum or plasma troponin i.cardiac measurement (mass/volume) - 03/31/18 16:10 Serum or plasma troponin i.cardiac measurement (mass/volume) < ng/ mL <0.30 Myoglobin, serum - 03/31/18 16:10 Myoglobin, serum 139.8 ng/mL 10.0-92.0 Complete blood count (CBC) with automated white blood cell (WBC) differential - 03/31/18 16:40 Blood leukocytes automated count (number/volume) 8.6 10*3/uL 4.3-11.0 Blood erythrocytes automated count (number/volume) 3.18 10*6/uL 4.35-5.85 Venous blood hemoglobin measurement (mass/volume) 9.7 g/dL 13.3-17.7 Blood hematocrit (volume fraction) 31 % 40-54 Automated erythrocyte mean corpuscular volume 99 [foz_us] 80-99 Automated erythrocyte mean corpuscular hemoglobin (mass per erythrocyte) 31 pg 25-34 Automated erythrocyte mean corpuscular hemoglobin concentration measurement ( mass/volume) 31 g/dL 32-36 Automated erythrocyte distribution width ratio 14.8 % 10.0-14.5 Automated blood platelet count (count/volume) 197 10*3/uL 130-400 Automated blood platelet mean volume measurement 9.5 [foz_us] 7.4-10.4 Automated blood neutrophils/100 leukocytes 78 % 42-75 Automated blood lymphocytes/100 leukocytes 10 % 12-44 Blood monocytes/100 leukocytes 9 % 0-12 Automated blood eosinophils/100 leukocytes 3 % 0-10 Automated blood basophils/100 leukocytes 0 % 0-10 Blood neutrophils automated count (number/volume) 6.7 10*3 1.8-7.8 Blood lymphocytes automated count (number/volume) 0.9 10*3 1.0-4.0 Blood monocytes automated count (number/volume) 0.8 10*3 0.0-1.0 Automated eosinophil count 0.2 10*3/uL 0.0-0.3 Automated blood basophil count (count/volume) 0.0 10*3/uL 0.0-0.1 Serum or plasma lithium measurement (moles/volume) - 03/31/18 16:44 BNP level 112.0 pg/mL <100.0 PT panel in platelet poor plasma by coagulation assay - 03/31/18 17:01 Prothrombin time (PT) in platelet poor plasma by coagulation assay 13.8 s 12.2-14.7 INR in platelet poor plasma or blood by coagulation assay 1.1 0.8-1.4 Activated partial thromboplastin time (aPTT) in platelet poor plasma bycoagulation assay - 03/31/18 17:01 Activated partial thromboplastin time (aPTT) in platelet poor plasma bycoagulation assay 24 s 24-35 Capillary blood glucose measurement by glucometer (mass/volume) - 03/31/18 21: 16 Capillary blood glucose measurement by glucometer (mass/volume) 110 mg/dL 70-110 Complete blood count (CBC) with automated white blood cell (WBC) differential - 04/01/18 06:16 Blood leukocytes automated count (number/volume) 8.3 10*3/uL 4.3-11.0 Blood erythrocytes automated count (number/volume) 3.07 10*6/uL 4.35-5.85 Venous blood hemoglobin measurement (mass/volume) 9.3 g/dL 13.3-17.7 Blood hematocrit (volume fraction) 30 % 40-54 Automated erythrocyte mean corpuscular volume 98 [foz_us] 80-99 Automated erythrocyte mean corpuscular hemoglobin (mass per erythrocyte) 30 pg 25-34 Automated erythrocyte mean corpuscular hemoglobin concentration measurement ( mass/volume) 31 g/dL 32-36 Automated erythrocyte distribution width ratio 15.0 % 10.0-14.5 Automated blood platelet count (count/volume) 226 10*3/uL 130-400 Automated blood platelet mean volume measurement 9.1 [foz_us] 7.4-10.4 Automated blood neutrophils/100 leukocytes 70 % 42-75 Automated blood lymphocytes/100 leukocytes 20 % 12-44 Blood monocytes/100 leukocytes 9 % 0-12 Automated blood eosinophils/100 leukocytes 1 % 0-10 Automated blood basophils/100 leukocytes 0 % 0-10 Blood neutrophils automated count (number/volume) 5.8 10*3 1.8-7.8 Blood lymphocytes automated count (number/volume) 1.7 10*3 1.0-4.0 Blood monocytes automated count (number/volume) 0.8 10*3 0.0-1.0 Automated eosinophil count 0.1 10*3/uL 0.0-0.3 Automated blood basophil count (count/volume) 0.0 10*3/uL 0.0-0.1 Comprehensive metabolic panel - 04/01/18 06:16 Serum or plasma sodium measurement (moles/volume) 137 mmol/L 135-145 Serum or plasma potassium measurement (moles/volume) 4.4 mmol/L 3.6-5.0 Serum or plasma chloride measurement (moles/volume) 102 mmol/L 98-107 Carbon dioxide 27 mmol/L 21-32 Serum or plasma anion gap determination (moles/volume) 8 mmol/L 5-14 Serum or plasma urea nitrogen measurement (mass/volume) 24 mg/dL 7-18 Serum or plasma creatinine measurement (mass/volume) 2.59 mg/dL 0.60-1.30 Serum or plasma urea nitrogen/creatinine mass ratio 9 NRG Serum or plasma creatinine measurement with calculation of estimated glomerular filtration rate 24 NRG Serum or plasma glucose measurement (mass/volume) 93 mg/dL 70-105 Serum or plasma calcium measurement (mass/volume) 9.1 mg/dL 8.5-10.1 Serum or plasma total bilirubin measurement (mass/volume) 0.6 mg/dL 0.1-1.0 Serum or plasma alkaline phosphatase measurement (enzymatic activity/volume) 59 U/L 40-136 Serum or plasma aspartate aminotransferase measurement (enzymatic activity/ volume) 13 U/L 5-34 Serum or plasma alanine aminotransferase measurement (enzymatic activity/volume ) 8 U/L 0-55 Serum or plasma protein measurement (mass/volume) 5.8 g/dL 6.4-8.2 Serum or plasma albumin measurement (mass/volume) 3.4 g/dL 3.2-4.5 Serum or plasma troponin i.cardiac measurement (mass/volume) - 04/01/18 06:16 Serum or plasma troponin i.cardiac measurement (mass/volume) < ng/ mL <0.30 Lipid 1996 panel - 04/01/18 06:16 Serum or plasma triglyceride measurement (mass/volume) 33 mg/dL <150 Serum or plasma cholesterol measurement (mass/volume) 123 mg/dL < 200 Serum or plasma cholesterol in HDL measurement (mass/volume) 54 mg/ dL 40-60 Cholesterol in LDL [mass/volume] in serum or plasma by direct assay 51 mg/dL 1-129 Serum or plasma cholesterol in VLDL measurement (mass/volume) 7 mg/ dL 5-40 Capillary blood glucose measurement by glucometer (mass/volume) - 04/01/18 11: 48 Capillary blood glucose measurement by glucometer (mass/volume) 222 mg/dL 70-110 Serum or plasma creatinine measurement (mass/volume) - 04/10/18 10:55 Serum or plasma creatinine measurement (mass/volume) 3.07 mg/dL 0.60-1.30 CULTURE, URINE - 06/25/18 10:10 CULTURE, URINE, ROUTINE SEE NOTE [facility] Influenza virus A and B antigen detection - 07/20/18 09:28 CALL POSITIVES (F1 HELP) CALLED TO NICK AT [address] [facility] FLU RESULT POSITIVE FOR INFLUENZA B ANTIGEN, NEG FOR A ANTIGEN, BY IA [facility] Complete blood count (CBC) with automated white blood cell (WBC) differential - 07/20/18 09:49 Blood leukocytes automated count (number/volume) 16.8 10*3/uL 4.3-11.0 Blood erythrocytes automated count (number/volume) 4.41 10*6/uL 4.35-5.85 Venous blood hemoglobin measurement (mass/volume) 12.8 g/dL 13.3-17.7 Blood hematocrit (volume fraction) 40 % 40-54 Automated erythrocyte mean corpuscular volume 91 [foz_us] 80-99 Automated erythrocyte mean corpuscular hemoglobin (mass per erythrocyte) 29 pg 25-34 Automated erythrocyte mean corpuscular hemoglobin concentration measurement ( mass/volume) 32 g/dL 32-36 Automated erythrocyte distribution width ratio 14.4 % 10.0-14.5 Automated blood platelet count (count/volume) 194 10*3/uL 130-400 Automated blood platelet mean volume measurement 9.8 [foz_us] 7.4-10.4 Automated blood neutrophils/100 leukocytes 86 % 42-75 Automated blood lymphocytes/100 leukocytes 7 % 12-44 Blood monocytes/100 leukocytes 6 % 0-12 Automated blood eosinophils/100 leukocytes 0 % 0-10 Automated blood basophils/100 leukocytes 0 % 0-10 Blood neutrophils automated count (number/volume) 14.5 10*3 1.8-7.8 Blood lymphocytes automated count (number/volume) 1.3 10*3 1.0-4.0 Blood monocytes automated count (number/volume) 1.0 10*3 0.0-1.0 Automated eosinophil count 0.1 10*3/uL 0.0-0.3 Automated blood basophil count (count/volume) 0.0 10*3/uL 0.0-0.1 PT panel in platelet poor plasma by coagulation assay - 07/20/18 09:49 Prothrombin time (PT) in platelet poor plasma by coagulation assay 17.1 s 12.2-14.7 INR in platelet poor plasma or blood by coagulation assay 1.4 0.8-1.4 Activated partial thromboplastin time (aPTT) in platelet poor plasma bycoagulation assay - 07/20/18 09:49 Activated partial thromboplastin time (aPTT) in platelet poor plasma bycoagulation assay 34 s 24-35 Blood lactic acid measurement (moles/volume) - 07/20/18 09:49 Blood lactic acid measurement (moles/volume) 2.44 mmol/L 0.50-2.00 Blood manual differential performed detection - 07/20/18 09:49 Blood monocytes/100 leukocytes 4 % NRG Manual blood segmented neutrophils/100 leukocytes 76 % NRG Blood band neutrophils/100 leukocytes 12 % NRG Manual blood lymphocytes/100 leukocytes 7 % NRG Manual eosinophils/100 leukocytes in nose 1 % NRG Blood erythrocyte morphology finding identification NORMAL NR Comprehensive metabolic panel - 07/20/18 09:49 Serum or plasma sodium measurement (moles/volume) 134 mmol/L 135-145 Serum or plasma potassium measurement (moles/volume) 3.5 mmol/L 3.6-5.0 Serum or plasma chloride measurement (moles/volume) 96 mmol/L 98-107 Carbon dioxide 24 mmol/L 21-32 Serum or plasma anion gap determination (moles/volume) 14 mmol/L 5-14 Serum or plasma urea nitrogen measurement (mass/volume) 64 mg/dL 7-18 Serum or plasma creatinine measurement (mass/volume) 3.24 mg/dL 0.60-1.30 Serum or plasma urea nitrogen/creatinine mass ratio 20 NRG Serum or plasma creatinine measurement with calculation of estimated glomerular filtration rate 18 NRG Serum or plasma glucose measurement (mass/volume) 233 mg/dL 70-105 Serum or plasma calcium measurement (mass/volume) 9.6 mg/dL 8.5-10.1 Serum or plasma total bilirubin measurement (mass/volume) 2.4 mg/dL 0.1-1.0 Serum or plasma alkaline phosphatase measurement (enzymatic activity/volume) 75 U/L 40-136 Serum or plasma aspartate aminotransferase measurement (enzymatic activity/ volume) 16 U/L 5-34 Serum or plasma alanine aminotransferase measurement (enzymatic activity/volume ) 13 U/L 0-55 Serum or plasma protein measurement (mass/volume) 7.2 g/dL 6.4-8.2 Serum or plasma albumin measurement (mass/volume) 4.0 g/dL 3.2-4.5 CALCIUM CORRECTED 9.6 mg/dL 8.5-10.1 Serum or plasma troponin i.cardiac measurement (mass/volume) - 07/20/18 09:49 Serum or plasma troponin i.cardiac measurement (mass/volume) < ng/ mL <0.30 Serum or plasma thyrotropin measurement by detection limit <=0.05 miu/l (units/ volume) - 07/20/18 09:49 Serum or plasma thyrotropin measurement by detection limit <=0.05 miu/l (units/ volume) 3.24 u[iU]/mL 0.35-4.94 Complete urinalysis with reflex to culture - 07/20/18 10:52 Urine color determination MOHSEN NRG Urine clarity determination VERY CLOUDY NRG Urine pH measurement by test strip 5 5-9 Specific gravity of urine by test strip 1.020 1.016- 1.022 Urine protein assay by test strip, semi-quantitative 3+ NEGATIVE Urine glucose detection by automated test strip NEGATIVE NEGATIVE Erythrocytes detection in urine sediment by light microscopy 2+ NEGATIVE Urine ketones detection by automated test strip NEGATIVE NEGATIVE Urine nitrite detection by test strip NEGATIVE NEGATIVE Urine total bilirubin detection by test strip NEGATIVE NEGATIVE Urine urobilinogen measurement by automated test strip (mass/volume) NORMAL NORMAL Urine leukocyte esterase detection by dipstick 3+ NEGATIVE Automated urine sediment erythrocyte count by microscopy (number/high power field) NONE NRG Automated urine sediment leukocyte count by microscopy (number/high power field ) TNTC NRG Bacteria detection in urine sediment by light microscopy MODERATE NRG Squamous epithelial cells detection in urine sediment by light microscopy 0-2 NRG Crystals detection in urine sediment by light microscopy NONE NRG Casts detection in urine sediment by light microscopy NONE NRG Mucus detection in urine sediment by light microscopy NEGATIVE NRG Complete urinalysis with reflex to culture NO NRG Encounters ACCT No. Visit Date/Time Discharge Status Pt. Type Provider Facility Loc./Unit Complaint [id number] 02/27/2016 10:28:00 02/27/2016 10:28:00 DIS Outpatient LAURYN VILLANUEVA [facility] RAD [id number] 02/26/2016 09:52:00 02/26/2016 09:52:00 DIS Outpatient LAURYN VILLANUEVA [facility] [id number] 11/14/2015 13:28:00 11/14/2015 13:28:00 DIS Outpatient JR BRICEÑO [facility] RAD [id number] 08/21/2015 00:00:00 Document Registration [id number] 05/18/2018 10:38:13 05/18/2018 23:59:59 CLS Outpatient Tiago Burroughs [id number] 01/19/2018 11:54:59 01/19/2018 23:59:59 CLS Outpatient Tiago Burroughs [id number] 01/05/2018 16:50:26 01/05/2018 23:59:59 CLS Outpatient Tiago Burroughs [id number] 09/26/2016 10:13:33 09/26/2016 23:59:59 CLS Outpatient Juan, V S [id number] 10/24/2014 14:30:41 10/24/2014 23:59:59 CLS Outpatient Juan, V S [id number] 10/10/2014 13:59:32 10/10/2014 23:59:59 CLS Outpatient Juan, V S [id number] 04/06/2014 09:21:00 04/06/2014 23:59:59 CLS Outpatient GABE MARILIA LAZARO [id number] 02/15/2014 15:07:00 02/15/2014 23:59:59 CLS Outpatient MARILIA BERNAL DDS [id number] 03/14/2018 11:27:10 ACT Document Registration [id number] 03/03/2018 03:31:57 03/03/2018 23:59:59 DIS Outpatient TRACEE CAMPOS [facility] [id number] 03/01/2018 09:54:36 03/01/2018 23:59:59 CLS Preadmit SIMON CASTILLO [facility] MS ACUTE ONCRONIC RENAL FAILURE [id number] 02/28/2018 20:14:00 02/28/2018 23:59:59 DIS Outpatient TRACEE CAMPOS [facility] [id number] 02/23/2018 16:21:22 02/23/2018 23:59:59 CLS Preadmit SIMON CASTILLO [facility] RAD elevated bmp [id number] 02/23/2018 11:53:42 02/23/2018 23:59:59 DIS Outpatient SIMON CASTILLO [facility] [id number] 09/29/2017 12:57:00 09/29/2017 23:59:59 DIS Outpatient POORNIMAMAILE LAURYN Chan [facility] [id number] 04/08/2017 08:22:18 04/08/2017 23:59:59 DIS Outpatient SIMON CASTILLO [facility] RAD heart failure [id number] 11/18/2016 11:03:32 11/18/2016 23:59:59 CLS Preadmit [facility] PT Weakness S/P Pneumonia [id number] 02/28/2018 21:05:00 ACT V SIMON CASTILLO [facility] OBS ed visit [id number] 02/10/2017 02:02:24 Document Registration [id number] 01/27/2017 02:00:34 Document Registration [id number] 01/13/2017 02:01:35 Document Registration [id number] 11/06/2016 14:57:02 Document Registration [id number] 11/05/2016 03:08:00 ACT V ZECHARIAH DON [facility] OBS sick [id number] 04/10/2018 10:55:00 04/10/2018 23:59:59 CLS Outpatient ANGIE ARTIS, ZECHARIAH Gonzales [facility] CVS [id number] 03/31/2018 21:30:00 04/01/2018 14:25:00 DIS Outpatient KRISTA EPSTEIN MD [facility] 4TH CHEST PAIN [id number] 07/20/2018 10:04:00 Document Registration [id number] 05/11/2018 11:28:52 Document Registration [id number] 05/04/2018 17:18:00 Document Registration [id number] 05/04/2018 13:26:00 Document Registration [id number] 05/04/2018 16:06:02 ACT Unknown Simon Castillo MD [id number] 02/20/2016 16:15:00 Document Registration [id number] 11/07/2015 13:30:00 Document Registration [id number] 06/25/2018 09:00:00 Document Registration
[2018-07-20] MEDS: NS IV 1000 ML 1,000 ML IV SCH ×2 (14:09→19:25)
[2018-07-20] MEDS ORDERED: CALC0.253 PO (14:27)
[2018-07-20] MEDS ORDERED: METO-352 PO (14:27)
[2018-07-20] MEDS ORDERED: BUME2TAB3 PO (14:27)
[2018-07-20] MEDS ORDERED: meTOproloL SUCCINATE 50 MG (TOPROL XL) TAB PO ONE (14:40)
[2018-07-20] MEDS ORDERED: meTOproloL SUCCINATE 50 MG (TOPROL XL) TAB PO NR (14:45)
--- NOTE | 2018-07-20 16:38 | Consultation-Cardiology ---
HPI-Cardiology Cardiology Consultation: Date of Consultation 07/20/18 Date of Admission Attending Physician Trixie Wilde DO Admitting Physician Krzysztof Garcia MD Consulting Physician Abner CLARK MD HPI: Time Seen by a Provider: 16:38 Chief Complaint: AF with RVR This is a 88 year old gentlemen who is well known to me from my office who I see for paroxysmal atrial fibrillation. He presents to the ER with fever, chills and right arm wound. He is also found to have influenza B. No cardiac symptoms, including chest pain, syncope or near syncope. No palpitations when I saw him but was complaining of palpitations in the ER. Patient also has severe CKD and was briefly on dialysis but was subsequently taken off dialysis. He sees nephrology as an outpatient. Review of Systems-Cardiology Review of Systems Constitutional: As described under HPI; No As described under HPI, No no symptoms reported; chills, fever; No lightheadedness Eyes: No As described under HPI, No no symptoms reported, No blindness, No blurred vision, No contact lenses, No drainage, No decreased acuity, No foreign body sensation, No pain, No vision change Ears/Nose/Throat: No As described under HPI, No no symptoms reported, No chronic hearing loss, No ear discharge, No ear pain, No nasal drainage, No ulcerations Respiratory: No no symptoms reported; As described under HPI; No As described under HPI, No cough, No orthopnea, No shortness of breath, No SOB with excertion Cardiovascular: No no symptoms reported; As described under HPI; No As described under HPI, No chest pain, No edema, No irregular heart rate, No lightheadedness; palpitations Gastrointestinal: No no symptoms reported, No As described under HPI, No abdomen distended, No abdominal pain, No blood streaked bowels, No constipation , No diarrhea, No nausea, No vomiting, No stool coloration changes Genitourinary: No As described under HPI, No burning, No dysuria, No discharge , No frequency, No flank pain, No hematuria, No urgency Musculoskeletal: As describe under HPI Skin: No rash, No skin related problems, No ulcerations Psychiatric/Neurological: No anxiety, No depression, No seizure, No focal weakness, No syncope Hematologic: No bleeding abnormalities [id number]-Pdnwuh Hx Patient Social History Alcohol Use: Denies Use Recreational Drug Use: No Smoking Status: Never a Smoker Type Used: Cigars, Cigarettes Recent Foreign Travel: No Recent Infectious Disease Expo: No Physical Abuse Screen: No Sexual Abuse: No Immunizations Up To Date Date of Pneumonia Vaccine: Jun 22, 2014 Date of Influenza Vaccine: Jul 06, 2018 Past Medical History PMH As described under Assessment. Family Medical History Family History: Diabetes mellitus 19 MOTHER G8 BROTHER FH: pancreatic cancer 19 FATHER Allergies and Home Medications Allergies Coded Allergies: No Known Drug Allergies (Unverified , 03/31/18) Home Medications Acetaminophen 325 Mg Tablet, 650 MG PO Q4H PRN for PAIN-MILD, (Reported) TAKES 2 (325MG) TABLETS Apixaban 2.5 Mg Tablet, 2.5 MG PO BID, (Reported) Bumetanide 2 Mg Tablet, 2 MG PO BID, (Reported) Calcitriol 0.25 Mcg Capsule, 0.25 MCG PO MoWeFr, (Reported) Ergocalciferol (Vitamin D2) 50,000 Unit Capsule, 50,000 UNIT PO Tu, (Reported) Glimepiride 4 Mg Tablet, 4 MG PO BID, (Reported) Insulin Determir 1,000 Units/10 Ml Soln, 15 UNITS SQ BID, (Reported) Metoprolol Succinate 50 Mg Tab.er.24h, 50 MG PO DAILY, (Reported) Prednisone 5 Mg Tablet, 5 MG PO BID, (Reported) Tamsulosin HCl 0.4 Mg Cap.er.24h, 0.4 MG PO DAILY, (Reported) Patient Home Medication List Home Medication List Reviewed: Yes Physical Exam-Cardiology Physical Exam Vital Signs/I&O 07/20/18 07/20/18 07/20/18 07/20/18 12:25 12:30 12:30 12:36 Temp 98.7 97.2 Pulse 103 106 105 Resp 16 20 B/P (MAP) 120/63 (82) 109/83 (92) Pulse Ox 96 100 O2 Delivery Nasal Cannula Room Air Room Air O2 Flow Rate 2.00 07/20/18 07/20/18 07/20/18 07/20/18 14:00 15:00 16:00 16:00 Pulse 117 89 89 Resp 18 23 22 B/P (MAP) 114/66 (82) 100/61 (74) 118/59 (78) Pulse Ox 100 96 94 O2 Delivery Room Air Room Air Room Air Room Air 07/20/18 07/20/18 07/20/18 07/20/18 17:00 18:00 19:00 21:37 Pulse 84 89 93 Resp 10 21 B/P (MAP) 122/55 (77) 119/64 (82) Pulse Ox 97 96 O2 Delivery Room Air Room Air Nasal Cannula O2 Flow Rate 2.00 Capillary Refill : Less Than 3 Seconds Constitutional: appears stated age, AAO x 3; No apparent distress; well- developed, well-nourished HEENT: PERRL; No normal ENT inspection, No TMs normal, No pharynx normal, No scleral icterus (R), No scleral icterus (L), No pale conjunctivae (R), No pale conjunctivae (L), No photophobia, No TM abnormal (R), No TM abnormal (L), No pharyngeal erythema, No tonsillar exudate, No other, No discharge, No EOMI; hearing is well preserved; No hard of hearing; oral hygience is good; No ulceration, No xanthelasmas are seen Neck: No non-tender, No full range of motion, No supple, No normal inspection, No carotid bruit, No limited range of motion, No lymphadenopathy (R), No lymphadenopathy (L), No tender lateral, No tender midline, No thyromegaly, No other; carotid pulses are 2 + bilaterally; No with good upstrokes Respiratory: No accessory muscle use, No respiratory distress, No chest tender , No chest expansion is symmetric; chest is bilaterally symmetric; No lungs clear to percussion; lungs clear to auscultation; No crackles, No rhonchi, No rales, No stridor, No wheezing, No pleural rub, No other Cardiovascular: regular rate-rhythm, S1 and S2 Gastrointestinal: No tender, No soft, No round, No distended, No pulsatile mass , No organomegaly, No guarding, No rebound, No tenderness, No hernia, No mass, No audible bowel sounds, No abnormal bowel sounds, No abdominal bruits, No spleenomegaly, No other Rectal: deferred Extremities: No normal range of motion, No non-tender, No normal inspection, No pedal edema, No calf tenderness, No normal capillary refill, No pelvis stable , No calf tenderness, No inflammation, No pedal edema, No slow capillary refill , No swelling, No other, No abrasion, No clubbing, No cyanosis, No ecchymosis, No laceration, No no lower extremity edema bilateral, No significant edema, No tenderness; wound Neurologic/Psychiatric: no motor/sensory deficits, alert, normal mood/affect, oriented x 3, power is 5/5 both on sides Skin: No normal color, No warm/dry, No cyanosis, No cool, No diaphoresis, No damp, No ecchymosis, No jaundice, No mottled, No pallor, No rash, No tattoos/ piercings, No ulcerations, No rash on exposed areas, No ulcerations on exposed areas, No other Data Review Labs Laboratory Tests 07/20/18 09:49: White Blood Count 16.8H, Red Blood Count 4.41, Hemoglobin 12.8L, Hematocrit 40, Mean Corpuscular Volume 91, Mean Corpuscular Hemoglobin 29, Mean Corpuscular Hemoglobin Concent 32, Red Cell Distribution Width 14.4, Platelet Count 194, Mean Platelet Volume 9.8, Neutrophils (%) (Auto) 86H, Lymphocytes (%) (Auto) 7L , Monocytes (%) (Auto) 6, Eosinophils (%) (Auto) 0, Basophils (%) (Auto) 0, Neutrophils # (Auto) 14.5H, Lymphocytes # (Auto) 1.3, Monocytes # (Auto) 1.0, Eosinophils # (Auto) 0.1, Basophils # (Auto) 0.0, Neutrophils % (Manual) 76, Lymphocytes % (Manual) 7, Monocytes % (Manual) 4, Eosinophils % (Manual) 1, Band Neutrophils 12, Blood Morphology Comment NORMAL, Prothrombin Time 17.1H, INR Comment 1.4, Activated Partial Thromboplast Time 34, Sodium Level 134L, Potassium Level 3.5L, Chloride Level 96L, Carbon Dioxide Level 24, Anion Gap 14 , Blood Urea Nitrogen 64H, Creatinine 3.24H, Estimat Glomerular Filtration Rate 18, BUN/Creatinine Ratio 20, Glucose Level 233H, Lactic Acid Level 2.44*H, Calcium Level 9.6, Corrected Calcium 9.6, Total Bilirubin 2.4H, Aspartate Amino Transf (AST/SGOT) 16, Alanine Aminotransferase (ALT/SGPT) 13, Alkaline Phosphatase 75, Troponin I < 0.30, Total Protein 7.2, Albumin 4.0, TSH [place] Testing 3.24 10/29/18 10:52: Urine Color AMBERH, Urine Clarity VERY CLOUDYH, Urine pH 5, Urine Specific [place] 1.020, Urine Protein 3+H, Urine Glucose (UA) NEGATIVE, Urine Ketones NEGATIVE, Urine Nitrite NEGATIVE, Urine Bilirubin NEGATIVE, Urine Urobilinogen NORMAL, Urine Leukocyte Esterase 3+H, Urine RBC (Auto) 2+H, Urine RBC NONE, Urine WBC TNTCH, Urine Squamous Epithelial Cells 0-2, Urine Crystals NONE, Urine Bacteria MODERATEH, Urine Casts NONE, Urine Mucus NEGATIVE, Urine Culture Indicated NO 07/20/18 11:48: Lactic Acid Level 0.96 07/20/18 16:44: Glucometer 296H 07/20/18 21:04: Glucometer 276H Microbiology 07/20/18 Influenza Types A,B Antigen (HUMBLE) - Final, Complete ECG Impression ECG Initial ECG Rhythm: Normal Sinus A/P-Cardiology Assessment/Admission Diagnosis PAF with RVR, currently in SR, Sepsis, Influenza B, CKD stage IV, Right arm cellulitis Plan PAF- converted to sinus rhythm. continue eliquis and BB. Sepsis - likely secondary to flu and cellulitis. Aggressive fluid resuscitation. Cellulitis - Dr Calle has been consulted. CKD - worsening creatinine. Follows Dr Elayne Clark, Nephrology as an outpatient. Thank you for your consultation. Please call me if you have any questions. Mireille Clark MD, FACP, FACC, [facility] [place], FHRS, CCDS Interventional Cardiology Cardiac Electrophysiology Vascular Medicine and Endovascular Interventions Clinical Quality Measures DVT/VTE Risk/Contraindication: Risk Factor Score Per Nursin RFS Level Per Nursing on Admit: 3=High Abner CLARK MD Jul 20, 2018 4:38 pm
[2018-07-20] MEDS: inSUlin ASPART (NovoLOG) 1 UNIT/0.01 ML (CHARGE PER UNIT) SC SCH ×2 (17:00→22:33)
--- OUTSIDE RECORDS SUMMARY | 2018-07-20 18:14 | XMS REPORT | Continuity of Care Document ---
Demographics x Preferred Language Unknown Marital Status Unknown Synagogue Affiliation Unknown Race Unknown Ethnic Group Unknown Author Author [facility] Organization [facility] Address Unknown Phone Unavailable Allergies Active Description Code Type Severity Reaction Onset Reported/Identified Relationship to Patient Clinical Status Yes No known allergies Drug N/A N/A Yes No Known Medication Allergies Drug N/A N/A Yes No Known Drug Allergies [id number] N/A N/A Yes No Known Drug Allergies [id number] Drug Allergy Unknown N/A 03/31/2018 Medications There [...] site w/o org/sys involv 06/25/2016 W Z79.52 custodial ( current) use of systemic steroids 06/25/2016 [...] 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 04/01/2018 KRISTA EPSTEIN MD Ot I12.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 04/01/2018 KRISTA EPSTEIN MD, Ot 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, UNSPECIFIED 04/01/2018 KRISTA EPSTEIN MD Ot N18.6 END STAGE RENAL DISEASE 04/01/2018 KRISTA EPSTEIN MD Ot R07.2 PRECORDIAL PAIN 04/01/2018 KRISTA EPSTEIN MD Ot R94.8 ABNORMAL RESULTS OF FUNCTION STUDIES OF 04/01/2018 KRISTA EPSTEIN MD, Ot Z79.4 JAIL (CURRENT) USE OF INSULIN 04/01/2018 KRISTA EPSTEIN MD Ot 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 04/01/2018 KRISTA EPSTEIN MD, Ot Z87.891 PERSONAL HISTORY OF NICOTINE DEPENDENCE 04/01/2018 KRISTA EPSTEIN MD Ot Z99.2 DEPENDENCE ON RENAL DIALYSIS 04/01/2018 KRISTA EPSTEIN MD, Ot D64.9 ANEMIA, UNSPECIFIED 04/01/2018 KRISTA EPSTEIN MD Ot 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 04/01/2018 KRISTA EPSTEIN MD Ot I12.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 04/01/2018 KRISTA EPSTEIN MD Ot 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, UNSPECIFIED 04/01/2018 KRISTA EPSTEIN MD Ot N18.6 END STAGE RENAL DISEASE 04/01/2018 KRISTA EPSTEIN MD Ot R07.2 PRECORDIAL PAIN 04/01/2018 KRISTA EPSTEIN MD Ot R94.8 ABNORMAL RESULTS OF FUNCTION STUDIES OF 04/01/2018 KRISTA EPSTEIN MD Ot Z79.4 JAIL (CURRENT) USE OF INSULIN 04/01/2018 KRISTA EPSTEIN MD Ot Z79.899 OTHER JAIL (CURRENT) DRUG THERAPY 04/01/2018 KRISTA EPSTEIN MD Ot Z87.891 PERSONAL HISTORY OF NICOTINE DEPENDENCE 04/01/2018 KRISTA EPSTEIN MD Ot Z99.2 DEPENDENCE ON RENAL DIALYSIS 04/03/2018 KRISTA EPSTEIN MD Ot D64.9 ANEMIA, UNSPECIFIED 04/03/2018 KRISTA EPSTEIN MD Ot 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 04/03/2018 KRISTA EPSTEIN MD Ot I12.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 04/03/2018 KRISTA EPSTEIN MD Ot 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, UNSPECIFIED 04/03/2018 KRISTA EPSTEIN MD Ot N18.6 END STAGE RENAL DISEASE 04/03/2018 KRISTA EPSTEIN MD Ot R07.2 PRECORDIAL PAIN 04/03/2018 KRISTA EPSTEIN MD Ot R94.8 ABNORMAL RESULTS OF FUNCTION STUDIES OF 04/03/2018 KRISTA EPSTEIN MD Ot Z79.4 JAIL (CURRENT) USE OF INSULIN 04/03/2018 KRISTA EPSTEIN MD Ot Z79.899 OTHER JAIL (CURRENT) DRUG THERAPY 04/03/2018 KRISTA EPSTEIN MD Ot Z87.891 PERSONAL HISTORY OF NICOTINE DEPENDENCE 04/03/2018 KRISTA EPSTEIN MD Ot Z99.2 DEPENDENCE ON RENAL DIALYSIS 04/13/2018 ZECHARIAH ADAMS MD Ot N18.9 CHRONIC KIDNEY DISEASE, UNSPECIFIED 05/04/2018 P [id number] Other difficulties with micturition 05/07/2018 P R38895 Other difficulties with micturition Procedures Code Description [place]formed [place] D0140 LIMIT ORAL EVAL PROBLM FOCUS 02/15/2014 D0220 INTRAORAL PERIAPICAL FIRST F 02/15/2014 D7140 EXTRACTION ERUPTED TOOTH/ EXR 02/15/2014 D7140 EXTRACTION ERUPTED TOOTH/ EXR 04/06/2014 82633 JOINT SURVEY SINGLE VIEW 11/07/2015 16787 OFFICE/OUTPATIENT VISIT NEW 11/07/2015 78956 X-RAY EXAM OF ELBOW 11/14/2015 33428 OFFICE/OUTPATIENT VISIT EST 02/20/2016 95787 FIBRIN DEGRADATION, QUANT 02/26/2016 08883 LUNG PERFUSION IMAGING 02/27/2016 A9540 TC 99M [...] 06/25/18 10:10 CULTURE, URINE, ROUTINE SEE NOTE [facility] Influenza virus A and B antigen detection - 07/20/18 09:28 CALL POSITIVES (F1 HELP) CALLED TO NICK AT [address] [facility] FLU RESULT POSITIVE FOR INFLUENZA B ANTIGEN, NEG FOR A ANTIGEN, BY IA [facility] Complete blood count (CBC) with automated white [...] urinalysis with reflex to culture NO NRG Serum or plasma lactate measurement (moles/volume) - 07/20/18 11:48 Serum or plasma lactate measurement (moles/volume) 0.96 mmol/L 0.50-2.00 Encounters ACCT No. Visit Date/Time Discharge Status Pt. Type Provider Facility Loc./Unit Complaint [id number] 02/27/2016 10:28:00 02/27/2016 10:28:00 DIS Outpatient LAURYN VILLANUEVA [facility] RAD [id number] 02/26/2016 09:52:00 02/26/2016 09:52:00 DIS Outpatient LAURYN VILLANUEVA [facility] [id number] 11/14/2015 13:28:00 11/14/2015 13:28:00 DIS Outpatient JR BRICEÑO Delfina [facility] RAD [id number] 08/21/2015 00:00:00 Document Registration [id number] 05/18/2018 10:38:13 05/18/2018 23:59:59 [facility] [place] [id number] 01/19/2018 11:54:59 01/19/2018 23:59:59 [facility] [place] [id number] 01/05/2018 16:50:26 01/05/2018 23:59:59 CLS Outpatient Manjeet [place] [id number] 09/26/2016 10:13:33 09/26/2016 23:59:59 CLS Outpatient Juan, V S [id number] 10/24/2014 14:30:41 10/24/2014 23:59:59 CLS Outpatient Juan, V S [id number] 10/10/2014 13:59:32 10/10/2014 23:59:59 CLS Outpatient Juan, V S [id number] 04/06/2014 09:21:00 04/06/2014 23:59:59 CLS Outpatient MARILIA BERNAL DDS [id number] 02/15/2014 15:07:00 02/15/2014 23:59:59 CLS Outpatient MARILIA BERNAL DDS [id number] 03/14/2018 11:27:10 ACT Document Registration [id number] 03/03/2018 03:31:57 03/03/2018 23:59:59 DIS Outpatient TRACEE CAMPOS [facility] [id number] 03/01/2018 09:54:36 03/01/2018 23:59:59 CLS Preadmit SIMON CASTILLO [facility] MS ACUTE ONCRONIC RENAL FAILURE [id number] 02/28/2018 20:14:00 02/28/2018 23:59:59 DIS Outpatient TRACEE CAMPOS [facility] [id number] 02/23/2018 16:21:22 02/23/2018 23:59:59 CLS Preadmit SIMON CASTILLO [facility] RAD elevated bmp [id number] 02/23/2018 11:53:42 02/23/2018 23:59:59 DIS Outpatient SIMON CASTILLO [facility] LAB [id number] 09/29/2017 12:57:00 09/29/2017 23:59:59 DIS Outpatient LAURYN VILLANUEVA [facility] [id number] 04/08/2017 08:22:18 04/08/2017 23:59:59 DIS Outpatient SIMON CASTILLO [facility] RAD heart failure [id number] 11/18/2016 11:03:32 11/18/2016 23:59:59 CLS Preadmit [facility] PT Weakness S/P Pneumonia [id number] 02/28/2018 21:05:00 ACT V SIMON CASTILLO [facility] OBS ed visit [id number] 02/10/2017 02:02:24 Document Registration [id number] 01/27/2017 02:00:34 Document Registration [id number] 01/13/2017 02:01:35 Document Registration [id number] 11/06/2016 14:57:02 Document Registration [id number] 11/05/2016 03:08:00 ACT V ZECHARIAH DON [facility] OBS sick [id number] 04/10/2018 10:55:00 04/10/2018 23:59:59 CLS Outpatient ANGIE ARTIS, ZECHARIAH [facility] [id number] 03/31/2018 21:30:00 04/01/2018 14:25:00 DIS Outpatient LUCIAN ARTIS, KRISTA [facility] 4TH CHEST PAIN [id number] 07/20/2018 10:04:00 Document Registration [id number] 05/11/2018 11:28:52 Document Registration [id number] 05/04/2018 17:18:00 Document Registration [id number] 05/04/2018 13:26:00 Document Registration [id number] 05/04/2018 16:06:02 ACT Unknown Simon Castillo MD [id number] 02/20/2016 16:15:00 Document Registration [id number] 11/07/2015 13:30:00 Document Registration [id number] 06/25/2018 09:00:00 Document Registration
--- NOTE | 2018-07-20 18:19 | Consultation ---
History of Present Illness History of Present Illness Patient Consulted On(candice/time) 07/20/18 18:15 Date Seen by Provider: Jul 20, 2018 Time Seen by Provider: 17:40 Reason for Visit: cough and fever with positive influenza History of Present Illness gentleman with active confluence admitted with cough, found to have denudation of the skin over the right forearm. Allergies and Home Medications Allergies Coded Allergies: No Known Drug Allergies (Unverified , 03/31/18) Home Medications Acetaminophen 325 Mg Tablet, 650 MG PO Q4H PRN for PAIN-MILD, (Reported) TAKES 2 (325MG) TABLETS Apixaban 2.5 Mg Tablet, 2.5 MG PO BID, (Reported) Bumetanide 2 Mg Tablet, 2 MG PO BID, (Reported) Calcitriol 0.25 Mcg Capsule, 0.25 MCG PO MoWeFr, (Reported) Ergocalciferol (Vitamin D2) 50,000 Unit Capsule, 50,000 UNIT PO Tu, (Reported) Glimepiride 4 Mg Tablet, 4 MG PO BID, (Reported) Insulin Determir 1,000 Units/10 Ml Soln, 15 UNITS SQ BID, (Reported) Metoprolol Succinate 50 Mg Tab.er.24h, 50 MG PO DAILY, (Reported) Prednisone 5 Mg Tablet, 5 MG PO BID, (Reported) Tamsulosin HCl 0.4 Mg Cap.er.24h, 0.4 MG PO DAILY, (Reported) Patient Home Medication List Home Medication List Reviewed: Yes Past Zyqpjeo-Uzpiau-Wjzpzu Hx Patient Social History Alcohol Use: Denies Use Number of Drinks Today: AA Alcohol Beverage of Choice: Beer Recreational Drug Use: No Smoking Status: Never a Smoker Type Used: Cigars, Cigarettes Former Smoker, Quit: Apr 01, 1978 Recent Foreign Travel: No Contact w/Someone Who Travel: No Recent Infectious Disease Expo: No Recent Hopitalizations: Yes Immunizations Up To Date Date of Pneumonia Vaccine: Jun 22, 2014 Date of Influenza Vaccine: Jul 06, 2018 Seasonal Allergies Seasonal Allergies: No Past Medical History Surgeries: Yes (hernia, dialysis port in left arm) Respiratory: No Cardiac: Yes Hypertension Neurological: No Genitourinary: No Benign Prostatic Hyperpl, Kidney Infection, Dialysis Gastrointestinal: Yes Abdominal Hernia, Gastroesophageal Reflux Musculoskeletal: Yes Arthritis, Rheumatoid Arthritis Endocrine: Yes Diabetes, Non-Insulin dep Are Your Blood Sugars Over 250: Yes HEENT: Yes Macular Degeneration Cancer: No Psychosocial: No Integumentary: Yes Psoriasis Blood Disorders: No Adverse Reaction/Blood Tranf: No Family Medical History Diabetes mellitus 19 MOTHER G8 BROTHER FH: pancreatic cancer 19 FATHER Review of Systems-General Constitutional: see HPI EENTM: no symptoms reported Respiratory: cough Cardiovascular: no symptoms reported Gastrointestinal: no symptoms reported Musculoskeletal: see HPI Skin: see HPI Physical Exam-General Problems Physical Exam Vital Signs Vital Signs - First Documented 07/20/18 07/20/18 07/20/18 09:20 09:25 12:25 Temp 99.0 Pulse 113 Resp 16 B/P (MAP) 102/63 (76) Pulse Ox 94 O2 Delivery Room Air O2 Flow Rate 2.00 Capillary Refill : Less Than 3 Seconds General Appearance: no apparent distress Neurologic/Psychiatric: alert, oriented x 3 Comments multiple ecchymosis over his body with a 2 cm area of denudation of the epidermis over the right forearm. No active cellulitis. Assessment/Plan Assessment/Plan Admission Diagnosis/Plan gentleman with denudation of the skin over the right forearm. Multiple ecchymosis. Active influenza, on management. Reasonable to manage with nonadherent wound care measures Admission Status: Inpatient Order (span 2 midnights) Reason for Inpatient Admission: management expected to last more than 2 days Clinical Quality Measures DVT/VTE Risk/Contraindication: Risk Factor Score Per Nursin RFS Level Per Nursing on Admit: 3=High AUGUSTIN PANDEY MD Jul 20, 2018 18:19
[2018-07-20] MEDS ORDERED: ACETAMINOPHEN 325 MG TABLET PO PRN (21:30)
[2018-07-20] MEDS: CALCITRIOL 0.25 MCG (ROCALTROL) CAPSULE PO SCH (21:30)
[2018-07-20] MEDS ORDERED: predniSONE 10 MG TAB ONE (22:23)
[2018-07-20] MEDS ORDERED: APIXABAN 2.5 MG (ELIQUIS) TABLET ONE (22:23)
[2018-07-20] MEDS: predniSONE 5 MG TAB PO SCH (22:35)
[2018-07-20] MEDS: APIXABAN 2.5 MG (ELIQUIS) TABLET PO SCH (22:35)
[2018-07-20] MEDS ORDERED: BUMETANIDE 1 MG/4 ML (BUMEX) VIAL ONE (23:09)
[2018-07-20] MEDS ORDERED: BUMETANIDE 1 MG/4 ML (BUMEX) VIAL IV ONE (23:15)
[2018-07-21] VITALS (8 sets, daily range): BP systolic 117–138; BP diastolic 58–70
[2018-07-21] MEDS: NS IV 1000 ML 1,000 ML IV SCH ×4 (02:05→18:47)
[2018-07-21] MEDS: GLIMEPIRIDE 4 MG (AMARYL) TAB PO SCH ×2 (06:11→16:05)
[2018-07-21] MEDS: inSUlin ASPART (NovoLOG) 1 UNIT/0.01 ML (CHARGE PER UNIT) SC SCH ×4 (06:11→21:00)
[2018-07-21] MEDS: BUMETANIDE 1 MG (BUMEX) TAB PO SCH ×2 (08:49→20:59)
[2018-07-21] MEDS: meTOproloL SUCCINATE 50 MG (TOPROL XL) TAB PO SCH (08:49)
[2018-07-21] MEDS: APIXABAN 2.5 MG (ELIQUIS) TABLET PO SCH ×2 (08:49→20:59)
[2018-07-21] MEDS: OSELTAMIVIR 30 MG (TAMIFLU) CAPSULE PO SCH (08:50)
[2018-07-21] MEDS: inSUlin DETERMIR 1 UNIT/0.01 ML (LEVEMIR) CHARGE PER UNIT SQ SCH ×2 (08:50→21:00)
[2018-07-21] MEDS: predniSONE 5 MG TAB PO SCH ×2 (08:50→20:59)
[2018-07-21] MEDS: TAMSULOSIN 0.4 MG (FLOMAX) CAP PO SCH (08:50)
[2018-07-21] MEDS ORDERED: NON-FORMULARY MEDICATION 1 EA EA (Bumetanide 2 MG) PO SCH (09:00)
[2018-07-21] MEDS ORDERED: NON-FORMULARY MEDICATION 1 EA EA (Metoprolol Succinate (Toprol Xl) 50 MG) PO SCH (09:00)
[2018-07-21] MEDS ORDERED: NON-FORMULARY MEDICATION 1 EA EA (Glimepiride 4 MG) PO SCH (09:00)
[2018-07-21 09:04] LABS: BASOPHILS % (AUTO) 0 % (0-10); EOSINOPHILS # (AUTO) 0.1 10^3/uL (0.0-0.3); EOSINOPHILS % (AUTO) 1 % (0-10); HEMATOCRIT 33 % (40-54); HEMOGLOBIN 10.9 G/DL (13.3-17.7); LYMPHOCYTES # (AUTO) 1.2 X 10^3 (1.0-4.0); LYMPHOCYTES % (AUTO) 10 % (12-44); MEAN CORPUSCULAR HEMOGLOBIN 29 PG (25-34); MEAN CORPUSCULAR HGB CONC 33 G/DL (32-36); MEAN CORPUSCULAR VOLUME 90 FL (80-99); MEAN PLATELET VOLUME 9.7 FL (7.4-10.4); MONOCYTES # (AUTO) 0.6 X 10^3 (0.0-1.0); MONOCYTES % (AUTO) 5 % (0-12); NEUTROPHILS # (AUTO) 10.4 X 10^3 (1.8-7.8); NEUTROPHILS % (AUTO) 85 % (42-75); PLATELET COUNT 169 10^3/uL (130-400); RED BLOOD COUNT 3.72 10^6/uL (4.35-5.85); RED CELL DISTRIBUTION WIDTH 14.6 % (10.0-14.5); WHITE BLOOD COUNT 12.3 10^3/uL (4.3-11.0)
--- NOTE | 2018-07-21 09:12 | Cardiology Progress Note ---
Cardiology SOAP Progress Note Subjective: Feeling better than yesterday. Objective: I&O/Vital Signs 07/20/18 07/21/18 07/21/18 07/21/18 23:00 00:00 00:00 00:00 Temp 98.2 Pulse 87 90 Resp 21 30 B/P (MAP) 158/57 (90) 117/60 (79) Pulse Ox 95 93 O2 Delivery Room Air Room Air Room Air 07/21/18 07/21/18 07/21/18 07/21/18 00:57 01:00 02:00 02:45 Pulse 83 90 90 89 Resp 22 B/P (MAP) 132/65 (87) 129/58 (81) Pulse Ox 94 94 94 O2 Delivery Room Air Room Air Room Air 07/21/18 07/21/18 07/21/18 07/21/18 04:00 04:07 07:00 08:00 Temp 98.4 97.0 Pulse 82 80 83 Resp 19 16 B/P (MAP) 125/61 (82) 122/66 (84) Pulse Ox 96 94 O2 Delivery Room Air Room Air Room Air 07/21/18 00:00 Intake Total 700 ml Output Total 550 ml Balance 150 ml Weight (Pounds): 211 Weight (Ounces): 2.0 Weight (Calculated Kilograms): 95.118922 Constitutional: appears stated age, AAO x 3; No apparent distress; well- developed, well-nourished Respiratory: No accessory muscle use, No respiratory distress, No chest tender , No chest expansion is symmetric; chest is bilaterally symmetric; No lungs clear to percussion; lungs clear to auscultation; No crackles, No rhonchi, No rales, No stridor, No wheezing, No pleural rub, No other Cardiovascular: regular rate-rhythm, S1 and S2 Gastrointestional: No tender, No soft, No round, No distended, No pulsatile mass, No organomegaly, No guarding, No rebound, No tenderness, No hernia, No mass, No audible bowel sounds, No abnormal bowel sounds, No abdominal bruits, No spleenomegaly, No other Extremities: No normal range of motion, No non-tender, No normal inspection, No pedal edema, No calf tenderness, No normal capillary refill, No pelvis stable , No calf tenderness, No inflammation, No pedal edema, No slow capillary refill , No swelling, No other, No abrasion, No clubbing, No cyanosis, No ecchymosis, No laceration, No no lower extremity edema bilateral, No significant edema, No tenderness; wound Neurologic/Psychiatric: no motor/sensory deficits, alert, normal mood/affect, oriented x 3, power is 5/5 both on sides Skin: No normal color, No warm/dry, No cyanosis, No cool, No diaphoresis, No damp, No ecchymosis, No jaundice, No mottled, No pallor, No rash, No tattoos/ piercings, No ulcerations, No rash on exposed areas, No ulcerations on exposed areas, No other Results/Procedures: Labs Laboratory Tests 07/20/18 10:52: Urine Color AMBERH, Urine Clarity VERY CLOUDYH, Urine pH 5, Urine Specific [place] 1.020, Urine Protein 3+H, Urine Glucose (UA) NEGATIVE, Urine Ketones NEGATIVE, Urine Nitrite NEGATIVE, Urine Bilirubin NEGATIVE, Urine Urobilinogen NORMAL, Urine Leukocyte Esterase 3+H, Urine RBC (Auto) 2+H, Urine RBC NONE, Urine WBC TNTCH, Urine Squamous Epithelial Cells 0-2, Urine Crystals NONE, Urine Bacteria MODERATEH, Urine Casts NONE, Urine Mucus NEGATIVE, Urine Culture Indicated NO 07/20/18 11:48: Lactic Acid Level 0.96 07/20/18 16:44: Glucometer 296H 07/20/18 21:04: Glucometer 276H 07/21/18 08:55: White Blood Count 12.3H, Red Blood Count 3.72L, Hemoglobin 10.9L, Hematocrit 33L , Mean Corpuscular Volume 90, Mean Corpuscular Hemoglobin 29, Mean Corpuscular Hemoglobin Concent 33, Red Cell Distribution Width 14.6H, Platelet Count 169, Mean Platelet Volume 9.7, Neutrophils (%) (Auto) 85H, Lymphocytes (%) (Auto) 10L , Monocytes (%) (Auto) 5, Eosinophils (%) (Auto) 1, Basophils (%) (Auto) 0, Neutrophils # (Auto) 10.4H, Lymphocytes # (Auto) 1.2, Monocytes # (Auto) 0.6, Eosinophils # (Auto) 0.1, Basophils # (Auto) 0.0, Sodium Level 134L, Potassium Level 3.4L, Chloride Level 99, Carbon Dioxide Level 22, Anion Gap 13, Blood Urea Nitrogen 63H, Creatinine 2.91H, Estimat Glomerular Filtration Rate 21, BUN/ Creatinine Ratio 22, Glucose Level 280H, Calcium Level 8.9, Corrected Calcium 9.4, Total Bilirubin 1.2H, Aspartate Amino Transf (AST/SGOT) 15, Alanine Aminotransferase (ALT/SGPT) 12, Alkaline Phosphatase 65, Total Protein 6.4, Albumin 3.4 Microbiology 07/20/18 Influenza Types A,B Antigen (HUMBLE) - Final, Complete 07/20/18 Gram Stain - Final, Resulted 07/20/18 Wound Culture, Resulted Pending A/P: Assessment/Dx: PAF with RVR, currently in SR, Sepsis, Influenza B, CKD stage IV, Right arm cellulitis Plan: PAF- converted to sinus rhythm. continue eliquis and BB. Sepsis - likely secondary to flu and cellulitis. Aggressive fluid resuscitation. Cellulitis - Dr Calle has been consulted. CKD - creatinine improving since admission. Follows Dr Elayne To, Nephrology as an outpatient. Thank you for your consultation. Please call me if you have any questions. Mireille To MD, FACP, FACC, FSCAI, FHRS, CCDS Interventional Cardiology Cardiac Electrophysiology Vascular Medicine and Endovascular Interventions Focused Exam Lactate Level 07/20/18 09:49: Lactic Acid Level 2.44*H 07/20/18 11:48: Lactic Acid Level 0.96 Abner TO MD Jul 21, 2018 9:12 am
[2018-07-21 09:25] LABS: ALBUMIN 3.4 GM/DL (3.2-4.5); BILIRUBIN,TOTAL 1.2 MG/DL (0.1-1.0); CALCIUM 8.9 MG/DL (8.5-10.1); CREATININE SERUM 2.91 MG/DL (0.60-1.30); POTASSIUM 3.4 MMOL/L (3.6-5.0); TOTAL PROTEIN 6.4 GM/DL (6.4-8.2)
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
[2018-07-21] MEDS ORDERED: CEFEPIME 1 GM/NS 50 ML IV SCH ×2 (11:00)
[2018-07-21] MEDS ORDERED: TROUGH ORDER-PHARMACY XX NR (12:00)
[2018-07-21] MEDS: VANCOMYCIN 1250 MG/NS 250 ML IVPB IV SCH ×2 (13:00)
--- NOTE | 2018-07-21 13:21 | Pulmonary Progress Note ---
Sepsis Event Evaluation Height, Weight, BMI Height: 5'7.00" Weight: 211lbs. 2.0oz. 95.691269oq; 32.3 BMI Method:Stated Focused Exam Lactate Level 07/20/18 09:49: Lactic Acid Level 2.44*H 07/20/18 11:48: Lactic Acid Level 0.96 Exam Exam Vital Signs Date Time Temp Pulse Resp B/P (MAP) Pulse Ox O2 Delivery O2 Flow Rate FiO2 07/21/18 08:00 97.0 83 16 122/66 (84) 94 Room Air 07/21/18 07:00 80 07/21/18 04:07 98.4 82 19 125/61 (82) 96 Room Air 07/21/18 04:00 Room Air 07/21/18 02:45 89 129/58 (81) 94 Room Air 07/21/18 02:00 90 94 Room Air 07/21/18 01:00 90 22 132/65 (87) 94 Room Air 07/21/18 00:57 83 07/21/18 00:00 Room Air 07/21/18 00:00 90 30 117/60 (79) 93 Room Air 07/21/18 00:00 98.2 07/20/18 23:00 87 21 158/57 (90) 95 Room Air 07/20/18 22:00 87 28 159/90 (113) 96 Room Air 07/20/18 21:37 Nasal Cannula 2.00 07/20/18 21:00 93 31 136/71 (92) 96 Room Air 07/20/18 21:00 95 Room Air 07/20/18 20:00 Room Air 07/20/18 20:00 97.3 07/20/18 20:00 88 19 103/64 (77) 96 Room Air 07/20/18 19:00 93 07/20/18 19:00 93 28 118/62 (80) 98 Room Air 07/20/18 18:00 89 21 119/64 (82) 96 Room Air 07/20/18 17:00 84 10 122/55 (77) 97 Room Air 07/20/18 16:00 89 22 118/59 (78) 94 Room Air 07/20/18 16:00 Room Air 07/20/18 15:00 89 23 100/61 (74) 96 Room Air 07/20/18 14:00 117 18 114/66 (82) 100 Room Air I & O 07/21/18 07:00 Intake Total 1850 ml Output Total 850 ml Balance 1000 ml Height & Weight Height: 5'7.00" Weight: 211lbs. 2.0oz. 95.435896xm; 32.3 BMI Method:Stated General Appearance: No Apparent Distress, WD/WN HEENT: PERRL/EOMI, Normal ENT Inspection, Pharynx Normal Neck: Full Range of Motion Respiratory: Chest Non Tender, No Accessory Muscle Use, No Respiratory Distress Cardiovascular: Regular Rate, Rhythm, No Edema, No Gallop, No JVD, No Murmur Capillary Refill: Less Than 3 Seconds Extremity: Normal Capillary Refill, Normal Inspection, Normal Range of Motion, Non Tender, No Calf Tenderness, No Pedal Edema Neurologic/Psychiatric: Alert, Oriented x3, No Motor/Sensory Deficits, Normal Mood/Affect Skin: Normal Color, Warm/Dry Lymphatic: No Adenopathy Results Lab Laboratory Tests 07/20/18 09:49 07/21/18 08:55 Assessment/Plan Assessment/Plan Sepsis with influenza B and UTI -Hebert cultures -IVF -Tamiflu Metabolic lactic acidosis -IVF Chronic Renal Failure Afib Tamiflu LORNA VERA DO Jul 21, 2018 13:21
[2018-07-22 00:30] VITALS: BP 128/60
[2018-07-22 04:00] VITALS: BP 125/64
[2018-07-22] MEDS: NS IV 1000 ML 1,000 ML IV SCH ×2 (04:26→12:38)
[2018-07-22 06:02] LABS: BASOPHILS % (AUTO) 0 % (0-10); EOSINOPHILS # (AUTO) 0.1 10^3/uL (0.0-0.3); EOSINOPHILS % (AUTO) 1 % (0-10); HEMATOCRIT 33 % (40-54); HEMOGLOBIN 10.4 G/DL (13.3-17.7); LYMPHOCYTES # (AUTO) 1.1 X 10^3 (1.0-4.0); LYMPHOCYTES % (AUTO) 12 % (12-44); MEAN CORPUSCULAR HEMOGLOBIN 29 PG (25-34); MEAN CORPUSCULAR HGB CONC 32 G/DL (32-36); MEAN CORPUSCULAR VOLUME 91 FL (80-99); MEAN PLATELET VOLUME 10.4 FL (7.4-10.4); MONOCYTES # (AUTO) 0.7 X 10^3 (0.0-1.0); MONOCYTES % (AUTO) 8 % (0-12); NEUTROPHILS # (AUTO) 7.5 X 10^3 (1.8-7.8); NEUTROPHILS % (AUTO) 79 % (42-75); PLATELET COUNT 175 10^3/uL (130-400); RED CELL DISTRIBUTION WIDTH 14.1 % (10.0-14.5); WHITE BLOOD COUNT 9.4 10^3/uL (4.3-11.0)
[2018-07-22] MEDS: inSUlin ASPART (NovoLOG) 1 UNIT/0.01 ML (CHARGE PER UNIT) SC SCH ×4 (06:09→20:34)
[2018-07-22] MEDS: GLIMEPIRIDE 4 MG (AMARYL) TAB PO SCH ×2 (06:09→16:02)
[2018-07-22 06:29] LABS: ALBUMIN 3.1 GM/DL (3.2-4.5); BILIRUBIN,TOTAL 0.5 MG/DL (0.1-1.0); CALCIUM 8.9 MG/DL (8.5-10.1); CREATININE SERUM 2.61 MG/DL (0.60-1.30); POTASSIUM 3.7 MMOL/L (3.6-5.0); TOTAL PROTEIN 5.7 GM/DL (6.4-8.2)
--- NOTE | 2018-07-22 06:56 | Pulmonary Progress Note ---
Subjective Time Seen by a Provider: 07:22 Subjective/Events-last exam Pt sitting on edge of bed eating breakfast. Sepsis Event Evaluation Height, Weight, BMI Height: 5'7.00" Weight: 209lbs. 1.0oz. 94.936517gy; 32.3 BMI Method:Stated Focused Exam Lactate Level 07/20/18 09:49: Lactic Acid Level 2.44*H 07/20/18 11:48: Lactic Acid Level 0.96 Exam Exam Vital Signs Date Time Temp Pulse Resp B/P (MAP) Pulse Ox O2 Delivery O2 Flow Rate FiO2 07/22/18 04:00 97.4 74 20 125/64 (84) 95 Room Air 07/22/18 01:00 81 07/22/18 00:30 97.3 88 22 128/60 (82) 95 Room Air 07/21/18 21:00 Room Air 07/21/18 20:00 98.0 80 22 127/67 (87) 95 Room Air 07/21/18 19:00 90 07/21/18 16:52 97.6 76 20 131/61 (84) 95 Room Air 07/21/18 16:36 Room Air 07/21/18 13:00 75 07/21/18 12:35 Room Air 07/21/18 12:00 97.4 92 18 138/70 (92) 95 Room Air 07/21/18 08:45 95 Room Air 07/21/18 08:38 Room Air 07/21/18 08:00 97.0 83 16 122/66 (84) 94 Room Air 07/21/18 07:00 80 I & O 07/22/18 07:00 Intake Total 4070 ml Output Total 4300 ml Balance -230 ml Height & Weight Height: 5'7.00" Weight: 209lbs. 1.0oz. 94.518159il; 32.3 BMI Method:Stated General Appearance: No Apparent Distress, WD/WN, Chronically ill HEENT: PERRL/EOMI, Normal ENT Inspection Neck: Full Range of Motion, Normal Inspection, Non Tender, Supple, Carotid Bruit Respiratory: Chest Non Tender, Lungs Clear, Normal Breath Sounds, No Accessory Muscle Use, No Respiratory Distress Cardiovascular: Regular Rate, Rhythm, No Edema, No Gallop, No JVD, No Murmur, Normal Peripheral Pulses Capillary Refill: Less Than 3 Seconds Extremity: Normal Inspection, No Pedal Edema Neurologic/Psychiatric: Alert, Oriented x3, No Motor/Sensory Deficits, Normal Mood/Affect Skin: Normal Color, Warm/Dry Lymphatic: No Adenopathy Results Lab Laboratory Tests 07/20/18 09:49 07/21/18 08:55 07/22/18 05:35 Assessment/Plan Assessment/Plan Sepsis with influenza B and UTI -Hebert cultures -IVF -Tamiflu, Cefepime, Vanco -1/2 BC positive - question contamination right arm abscess with S. Aureus positive culture Metabolic lactic acidosis -IVF Chronic Renal Failure -Monitor Afib LORNA VERA DO Jul 22, 2018 06:56
[2018-07-22] MEDS: inSUlin DETERMIR 1 UNIT/0.01 ML (LEVEMIR) CHARGE PER UNIT SQ SCH ×2 (07:55→20:35)
[2018-07-22] MEDS: meTOproloL SUCCINATE 50 MG (TOPROL XL) TAB PO SCH (07:56)
[2018-07-22] MEDS: BUMETANIDE 1 MG (BUMEX) TAB PO SCH ×2 (07:56→20:33)
[2018-07-22] MEDS: APIXABAN 2.5 MG (ELIQUIS) TABLET PO SCH ×2 (07:56→20:33)
[2018-07-22] MEDS: TAMSULOSIN 0.4 MG (FLOMAX) CAP PO SCH (07:57)
[2018-07-22] MEDS: predniSONE 5 MG TAB PO SCH ×2 (07:57→20:33)
[2018-07-22 08:00] VITALS: BP 143/74
[2018-07-22] MEDS: OSELTAMIVIR 30 MG (TAMIFLU) CAPSULE PO SCH (08:22)
--- NOTE | 2018-07-22 09:11 | Cardiology Progress Note ---
Cardiology SOAP Progress Note Subjective: Improved shortness of breath. Objective: I&O/Vital Signs 07/22/18 07/22/18 07/22/18 07/22/18 00:30 01:00 04:00 07:00 Temp 97.3 97.4 Pulse 88 81 74 76 Resp 22 20 B/P (MAP) 128/60 (82) 125/64 (84) Pulse Ox 95 95 O2 Delivery Room Air Room Air 07/22/18 08:00 Temp 98.0 Pulse 80 Resp 20 B/P (MAP) 143/74 (97) Pulse Ox 95 O2 Delivery Room Air 07/22/18 00:00 Intake Total 3670 ml Output Total 2600 ml Balance 1070 ml Weight (Pounds): 209 Weight (Ounces): 1.0 Weight (Calculated Kilograms): 94.499031 Constitutional: appears stated age, AAO x 3; No apparent distress; well- developed, well-nourished Respiratory: No accessory muscle use, No respiratory distress, No chest tender , No chest expansion is symmetric; chest is bilaterally symmetric; No lungs clear to percussion; lungs clear to auscultation; No crackles, No rhonchi, No rales, No stridor, No wheezing, No pleural rub, No other Cardiovascular: regular rate-rhythm, S1 and S2 Gastrointestional: No tender, No soft, No round, No distended, No pulsatile mass, No organomegaly, No guarding, No rebound, No tenderness, No hernia, No mass, No audible bowel sounds, No abnormal bowel sounds, No abdominal bruits, No spleenomegaly, No other Extremities: No normal range of motion, No non-tender, No normal inspection, No pedal edema, No calf tenderness, No normal capillary refill, No pelvis stable , No calf tenderness, No inflammation, No pedal edema, No slow capillary refill , No swelling, No other, No abrasion, No clubbing, No cyanosis, No ecchymosis, No laceration, No no lower extremity edema bilateral, No significant edema, No tenderness; wound Neurologic/Psychiatric: no motor/sensory deficits, alert, normal mood/affect, oriented x 3, power is 5/5 both on sides Skin: normal color, warm/dry Results/Procedures: Labs Laboratory Tests 07/21/18 11:05: Glucometer 268H 07/21/18 12:20: Vancomycin Level Trough 13.6 07/21/18 15:50: Glucometer 290H 07/21/18 19:53: Glucometer 248H 07/22/18 05:28: Glucometer 321H 07/22/18 05:35: White Blood Count 9.4, Red Blood Count 3.60L, Hemoglobin 10.4L, Hematocrit 33L, Mean Corpuscular Volume 91, Mean Corpuscular Hemoglobin 29, Mean Corpuscular Hemoglobin Concent 32, Red Cell Distribution Width 14.1, Platelet Count 175, Mean Platelet Volume 10.4, Neutrophils (%) (Auto) 79H, Lymphocytes (%) (Auto) 12 , Monocytes (%) (Auto) 8, Eosinophils (%) (Auto) 1, Basophils (%) (Auto) 0, Neutrophils # (Auto) 7.5, Lymphocytes # (Auto) 1.1, Monocytes # (Auto) 0.7, Eosinophils # (Auto) 0.1, Basophils # (Auto) 0.0, Sodium Level 137, Potassium Level 3.7, Chloride Level 105, Carbon Dioxide Level 19L, Anion Gap 13, Blood Urea Nitrogen 57H, Creatinine 2.61H, Estimat Glomerular Filtration Rate 23, BUN/ Creatinine Ratio 22, Glucose Level 327H, Calcium Level 8.9, Corrected Calcium 9.6, Total Bilirubin 0.5, Aspartate Amino Transf (AST/SGOT) 15, Alanine Aminotransferase (ALT/SGPT) 15, Alkaline Phosphatase 81, Total Protein 5.7L, Albumin 3.1L Microbiology 07/20/18 Blood Culture - Preliminary, Resulted No growth 07/20/18 Influenza Types A,B Antigen (HUMBLE) - Final, Complete 07/20/18 Urine Culture - Preliminary, Resulted Citrobacter Freundii 07/20/18 Gram Stain - Final, Resulted 07/20/18 Wound Culture - Preliminary, Resulted Staphylococcus aureus A/P: Assessment/Dx: PAF with RVR, currently in SR, Sepsis, Influenza B, CKD stage IV, Right arm cellulitis Plan: PAF- converted to sinus rhythm. continue eliquis and BB. Sepsis - likely secondary to flu and cellulitis. Aggressive fluid resuscitation. Improved. Cellulitis - Dr Calle has been consulted. CKD - creatinine improving since admission. Follows Dr Elayne To, Nephrology as an outpatient. Thank you for your consultation. Please call me if you have any questions. Mireille To MD, FACP, FACC, FSCAI, FHRS, CCDS Interventional Cardiology Cardiac Electrophysiology Vascular Medicine and Endovascular Interventions Focused Exam Lactate Level 07/20/18 09:49: Lactic Acid Level 2.44*H 07/20/18 11:48: Lactic Acid Level 0.96 Abner TO MD Jul 22, 2018 9:11 am
[2018-07-22 12:00] VITALS: BP 136/65
[2018-07-22] MEDS: cefTRIAXone FOR IV USE 1,000 MG in NS (IVPB) 50 ML IV SCH (12:37)
[2018-07-22] MEDS: TOLTERODINE LA 2 MG (DETROL LA) CAP PO SCH (12:38)
[2018-07-22] MEDS: VANCOMYCIN 1250 MG/NS 250 ML IVPB IV SCH ×2 (15:50)
--- NOTE | 2018-07-22 15:59 | Progress Note (SOAP) ---
Subjective Subjective/Events-last exam Pt reports ongoing dysuria and urinary incontinence (urge incontinence). Has not been getting out of bed much due to concern of leaking urine. IVF at 175mL/ h. No respiratory distress. Review of Systems Date Seen by Provider: Jul 22, 2018 Time Seen by Provider: 11:30 Focused Exam Lactate Level 07/20/18 09:49: Lactic Acid Level 2.44*H 07/20/18 11:48: Lactic Acid Level 0.96 Objective Exam Last Set of Vital Signs Vital Signs Date Time Temp Pulse Resp B/P (MAP) Pulse Ox O2 Delivery O2 Flow Rate FiO2 07/22/18 13:00 75 07/22/18 12:00 97.5 20 136/65 (88) 96 Room Air 07/20/18 21:37 2.00 Capillary Refill : Less Than 3 Seconds I&O Intake and Output 07/22/18 00:00 Intake Total 3820 ml Output Total 2900 ml Balance 920 ml Intake Oral 2570 ml IV Total 1250 ml Output Urine Total 2900 ml General: Alert, Oriented X3, Cooperative Lungs: Clear to Auscultation Heart: Regular Rate Psych/Mental Status: Mood NL Results/Procedures Lab Laboratory Tests 07/21/18 15:50: Glucometer 290H 07/21/18 19:53: Glucometer 248H 07/22/18 05:28: Glucometer 321H 07/22/18 05:35: White Blood Count 9.4, Red Blood Count 3.60L, Hemoglobin 10.4L, Hematocrit 33L, Mean Corpuscular Volume 91, Mean Corpuscular Hemoglobin 29, Mean Corpuscular Hemoglobin Concent 32, Red Cell Distribution Width 14.1, Platelet Count 175, Mean Platelet Volume 10.4, Neutrophils (%) (Auto) 79H, Lymphocytes (%) (Auto) 12 , Monocytes (%) (Auto) 8, Eosinophils (%) (Auto) 1, Basophils (%) (Auto) 0, Neutrophils # (Auto) 7.5, Lymphocytes # (Auto) 1.1, Monocytes # (Auto) 0.7, Eosinophils # (Auto) 0.1, Basophils # (Auto) 0.0, Sodium Level 137, Potassium Level 3.7, Chloride Level 105, Carbon Dioxide Level 19L, Anion Gap 13, Blood Urea Nitrogen 57H, Creatinine 2.61H, Estimat Glomerular Filtration Rate 23, BUN/ Creatinine Ratio 22, Glucose Level 327H, Calcium Level 8.9, Corrected Calcium 9.6, Total Bilirubin 0.5, Aspartate Amino Transf (AST/SGOT) 15, Alanine Aminotransferase (ALT/SGPT) 15, Alkaline Phosphatase 81, Total Protein 5.7L, Albumin 3.1L 07/22/18 11:31: Glucometer 238H Microbiology 07/20/18 Blood Culture - Preliminary, Resulted No growth 07/20/18 Influenza Types A,B Antigen (HUMBLE) - Final, Complete 07/20/18 Urine Culture - Final, Complete Citrobacter Freundii See Comments 07/20/18 Gram Stain - Final, Resulted 07/20/18 Wound Culture - Preliminary, Resulted Staphylococcus aureus Assessment/Plan Assessment/Plan Assessment & Plan Sepsis w/ bacteremia - blood and urine culture positive for Citrobacter Freundii - likely secondary to flu and cellulitis and UTI. Aggressive fluid resuscitation. Improved. - initiated on Vanc and Cefepime and Tamiflu 07/22 - changed from cefepime to ceftriaxone Acute influenza B - started on Tamiflu Right arm abscess/cellulitis - right arm abscess with S. Aureus positive culture - Vanc senstive CKD - creatinine improving since admission. Follows Dr Elayne Clark, Nephrology as an outpatient. - Cr on admission 3.24 --> 2.61 (07/22) AF w/RVR - converted to sinus rhythm. continue eliquis and BB UTI - Citrobacter freundii - sensitive to Rocephin 07/22 - c/o of ongoing dysuria and urge incontinence - will bladder scan post void and trial Detrol at renal dosing for urge incontinence/bladder spasm DM Type 2 - restarted on home Glimepiride - pt reports well controlled BS at home; BS not well controlled in hospital likely secondary to infection. 07/22 - increase Levemir to 20 units BID and change Novolog SSI to high dose RA - pt is on prednisone 5mg BID - recommend Rheum consult as OP Clinical Quality Measures DVT/VTE Risk/Contraindication: Risk Factor Score Per Nursin RFS Level Per Nursing on Admit: 3=High VARSHA QUINONES DO Jul 22, 2018 15:59
[2018-07-22 16:20] VITALS: BP 141/77
[2018-07-22 20:15] VITALS: BP 152/72
[2018-07-22] MEDS: CALCITRIOL 0.25 MCG (ROCALTROL) CAPSULE PO SCH (20:33)
[2018-07-23 00:05] VITALS: BP 161/75
[2018-07-23 04:09] VITALS: BP 144/73
[2018-07-23] MEDS: NS IV 1000 ML 1,000 ML IV SCH ×2 (05:31→14:23)
[2018-07-23 06:20] LABS: CALCIUM 9.1 MG/DL (8.5-10.1); CREATININE SERUM 2.54 MG/DL (0.60-1.30); POTASSIUM 3.8 MMOL/L (3.6-5.0)
[2018-07-23] MEDS: GLIMEPIRIDE 4 MG (AMARYL) TAB PO SCH ×2 (06:23→17:06)
[2018-07-23] MEDS: inSUlin ASPART (NovoLOG) 1 UNIT/0.01 ML (CHARGE PER UNIT) SC SCH ×5 (06:24→17:07)
--- NOTE | 2018-07-23 06:46 | Pulmonary Progress Note ---
Subjective Time Seen by a Provider: 06:43 Sepsis Event Evaluation Height, Weight, BMI Height: 5'7.00" Weight: 209lbs. 1.0oz. 94.920103yn; 32.3 BMI Method:Stated Focused Exam Lactate Level 07/20/18 09:49: Lactic Acid Level 2.44*H 07/20/18 11:48: Lactic Acid Level 0.96 Exam Exam Vital Signs Date Time Temp Pulse Resp B/P (MAP) Pulse Ox O2 Delivery O2 Flow Rate FiO2 07/23/18 01:00 75 07/23/18 00:05 97.4 80 18 161/75 (103) 97 Room Air 07/22/18 21:00 95 Room Air 07/22/18 20:15 96.7 78 18 152/72 (98) 96 Room Air 07/22/18 19:00 118 07/22/18 16:20 96.7 77 16 141/77 (98) 93 Room Air 07/22/18 13:00 75 07/22/18 12:00 97.5 73 20 136/65 (88) 96 Room Air 07/22/18 09:00 95 Room Air 07/22/18 08:00 98.0 80 20 143/74 (97) 95 Room Air 07/22/18 07:00 76 I & O 07/23/18 07:00 Intake Total 2240 ml Output Total 2300 ml Balance -60 ml Height & Weight Height: 5'7.00" Weight: 209lbs. 1.0oz. 94.819244vs; 32.3 BMI Method:Stated General Appearance: No Apparent Distress, WD/WN, Chronically ill HEENT: PERRL/EOMI, Normal ENT Inspection Neck: Full Range of Motion, Normal Inspection, Non Tender, Supple, Carotid Bruit Respiratory: Chest Non Tender, Lungs Clear, Normal Breath Sounds, No Accessory Muscle Use, No Respiratory Distress Cardiovascular: Regular Rate, Rhythm, No Edema, No Gallop, No JVD, No Murmur, Normal Peripheral Pulses Capillary Refill: Less Than 3 Seconds Extremity: Normal Inspection, No Pedal Edema Neurologic/Psychiatric: Alert, Oriented x3, No Motor/Sensory Deficits, Normal Mood/Affect Skin: Normal Color, Warm/Dry Lymphatic: No Adenopathy Results Lab Laboratory Tests 07/21/18 08:55 07/22/18 05:35 07/23/18 05:55 Assessment/Plan Assessment/Plan Sepsis with influenza B and UTI -Tamiflu, Cefepime, Vanco -1/2 BC positive - question contamination right arm abscess with S. Aureus positive culture Chronic Renal Failure -Monitor Afib PT is doing well I am going to sign off. Please call with any questions or concerns. LORNA VERA DO Jul 23, 2018 06:46
[2018-07-23 08:00] VITALS: BP 184/81
[2018-07-23] MEDS: BUMETANIDE 1 MG (BUMEX) TAB PO SCH ×2 (10:51→20:09)
[2018-07-23] MEDS: TOLTERODINE LA 2 MG (DETROL LA) CAP PO SCH (10:51)
[2018-07-23] MEDS: cefTRIAXone FOR IV USE 1,000 MG in NS (IVPB) 50 ML IV SCH (10:51)
[2018-07-23] MEDS: APIXABAN 2.5 MG (ELIQUIS) TABLET PO SCH ×2 (10:52→20:09)
[2018-07-23] MEDS: TAMSULOSIN 0.4 MG (FLOMAX) CAP PO SCH (10:52)
[2018-07-23] MEDS: OSELTAMIVIR 30 MG (TAMIFLU) CAPSULE PO SCH (10:52)
[2018-07-23] MEDS: predniSONE 5 MG TAB PO SCH ×2 (11:00→20:09)
[2018-07-23] MEDS: meTOproloL SUCCINATE 50 MG (TOPROL XL) TAB PO SCH (11:00)
[2018-07-23] MEDS: inSUlin DETERMIR 1 UNIT/0.01 ML (LEVEMIR) CHARGE PER UNIT SQ SCH ×2 (11:01→21:48)
[2018-07-23 12:00] VITALS: BP 140/64
[2018-07-23] MEDS ORDERED: TROUGH ORDER-PHARMACY XX ONE (12:00)
--- NOTE | 2018-07-23 12:26 | Progress Note (SOAP) ---
Subjective Subjective/Events-last exam Feeling better. Has not been ambulating much yet. Review of Systems Date Seen by Provider: Jul 23, 2018 Time Seen by Provider: 09:45 Objective Exam Last Set of Vital Signs Vital Signs Date Time Temp Pulse Resp B/P (MAP) Pulse Ox O2 Delivery O2 Flow Rate FiO2 07/23/18 08:00 95.0 77 24 184/81 (115) 97 Room Air 07/20/18 21:37 2.00 Capillary Refill : Less Than 3 Seconds I&O Intake and Output 07/23/18 00:00 Intake Total 2640 ml Output Total 4000 ml Balance -1360 ml Intake Oral 2540 ml IV Total 100 ml Output Urine Total 4000 ml General: Alert, Oriented X3, Cooperative Psych/Mental Status: Mood NL Results/Procedures Lab Laboratory Tests 07/22/18 15:57: Glucometer 374H 07/22/18 20:11: Glucometer 341H 07/23/18 05:28: Glucometer 185H 07/23/18 05:55: Sodium Level 140, Potassium Level 3.8, Chloride Level 105, Carbon Dioxide Level 22, Anion Gap 13, Blood Urea Nitrogen 58H, Creatinine 2.54H, Estimat Glomerular Filtration Rate 24, BUN/Creatinine Ratio 23, Glucose Level 189H, Calcium Level 9.1 07/23/18 08:41: Glucometer 164H 07/23/18 11:25: Glucometer 293H Microbiology 07/20/18 Blood Culture - Preliminary, Resulted No growth 07/20/18 Influenza Types A,B Antigen ([facility]) - Final, Complete 07/20/18 Urine Culture - Final, Complete Citrobacter Freundii See Comments 07/20/18 Gram Stain - Final, Resulted 07/20/18 Wound Culture - Preliminary, Resulted Staphylococcus aureus Assessment/Plan Assessment/Plan Assessment & Plan Sepsis w/ bacteremia - blood and urine culture positive for Citrobacter Freundii - likely secondary to flu and cellulitis and UTI. Aggressive fluid resuscitation. Improved. - initiated on Vanc and Cefepime and Tamiflu 07/22 - changed from cefepime to ceftriaxone Acute influenza B - started on Tamiflu Right arm abscess/cellulitis - right arm abscess with S. Aureus positive culture - Vanc sensitive CKD - creatinine improving since admission. Follows Dr Elayne Clark, Nephrology as an outpatient. - Cr on admission 3.24 --> 2.61 (07/22) --> 2.54 (07/23) AF w/RVR - converted to sinus rhythm. continue eliquis and BB UTI - Citrobacter freundii - sensitive to Rocephin 07/22 - c/o of ongoing dysuria and urge incontinence - will bladder scan post void and trial Detrol at renal dosing for urge incontinence/bladder spasm 07/23 - feeling somewhat improved. Would like to f/u with his Urologist in [facility] regarding recheck on prostate DM Type 2 - restarted on home Glimepiride - pt reports well controlled BS at home; BS not well controlled in hospital likely secondary to infection. 07/22 - increase Levemir to 20 units BID and change Novolog SSI to high dose RA - pt is on prednisone 5mg BID - recommend Rheum consult as OP Disp: Anticipate DC home tomorrow on po Bactrim DS daily (due to renal function ) Clinical Quality Measures DVT/VTE Risk/Contraindication: Risk Factor Score Per Nursin RFS Level Per Nursing on Admit: 3=High VARSHA QUINONES DO Jul 23, 2018 12:26
[2018-07-23] MEDS: VANCOMYCIN 1250 MG/NS 250 ML IVPB IV SCH ×2 (13:00)
[2018-07-23 16:31] VITALS: BP 141/82
[2018-07-23 19:30] VITALS: BP 140/69
[2018-07-23] MEDS: CATHETER FLUSH 10 ML SYR IV SCH (21:56)
[2018-07-24 01:00] VITALS: BP 151/77
[2018-07-24 04:03] VITALS: BP 135/73
[2018-07-24] MEDS: GLIMEPIRIDE 4 MG (AMARYL) TAB PO SCH (06:26)
[2018-07-24] MEDS: CATHETER FLUSH 10 ML SYR IV SCH (06:26)
[2018-07-24] MEDS: inSUlin ASPART (NovoLOG) 1 UNIT/0.01 ML (CHARGE PER UNIT) SC SCH ×2 (06:27→10:48)
[2018-07-24 08:00] VITALS: BP 133/85
[2018-07-24] MEDS: BUMETANIDE 1 MG (BUMEX) TAB PO SCH (09:41)
[2018-07-24] MEDS: meTOproloL SUCCINATE 50 MG (TOPROL XL) TAB PO SCH (09:41)
[2018-07-24] MEDS: APIXABAN 2.5 MG (ELIQUIS) TABLET PO SCH (09:41)
[2018-07-24] MEDS: inSUlin DETERMIR 1 UNIT/0.01 ML (LEVEMIR) CHARGE PER UNIT SQ SCH (09:41)
[2018-07-24] MEDS: predniSONE 5 MG TAB PO SCH (09:41)
[2018-07-24] MEDS: TAMSULOSIN 0.4 MG (FLOMAX) CAP PO SCH (09:41)
[2018-07-24] MEDS: TOLTERODINE LA 2 MG (DETROL LA) CAP PO SCH (09:41)
[2018-07-24] MEDS: OSELTAMIVIR 30 MG (TAMIFLU) CAPSULE PO SCH (09:52)
[2018-07-24] MEDS ORDERED: SULF1TAB35 PO (10:35)
[2018-07-24] MEDS ORDERED: INSU100V5 SQ (10:35)
--- NOTE | 2018-07-24 10:38 | Discharge Instructions ---
Discharge [facility] Discharge Medications New, Converted or Re-Newed RX: Transmitted to Pharmacy ([facility]) New Medications: Sulfamethoxazole/Trimethoprim (Bactrim Ds Tablet) 1 Each Tablet 1 EACH PO DAILY for 5 Days, #5 TAB Changed Medications: Insulin Determir (Levemir) 1,000 Units/10 Ml Soln 20 UNITS SQ BID, #1 EA (Changed from: 15 UNITS) Continued Medications: Acetaminophen (Tylenol) 325 Mg Tablet 650 MG PO Q4H PRN for PAIN-MILD, TAB TAKES 2 (325MG) TABLETS Apixaban (Eliquis) 2.5 Mg Tablet 2.5 MG PO BID, TAB Bumetanide (Bumetanide) 2 Mg Tablet 2 MG PO BID, TAB Calcitriol (Calcitriol) 0.25 Mcg Capsule 0.25 MCG PO MoWeFr, CAP Ergocalciferol (Vitamin D2) (Vitamin D2) 50,000 Unit Capsule 28466 UNIT PO Tu, CAP Glimepiride (Glimepiride) 4 Mg Tablet 4 MG PO BID, TAB Metoprolol Succinate (Toprol Xl) 50 Mg Tab.er.24h 50 MG PO DAILY, TAB Prednisone (Prednisone) 5 Mg Tablet 5 MG PO BID, TAB Tamsulosin HCl (Tamsulosin HCl) 0.4 Mg Cap.er.24h 0.4 MG PO DAILY, CAP Patient Instructions Patient Instructions Levemir insulin dose increased to 20 units twice daily due to elevated blood sugars. If blood sugars start to get too low at home call [facility] at , as to speak to Eva's nurse Shahla. Prescription for Bactrim (antibiotic) sent to [facility]. Take all antibiotics. Eva will recheck lab at your visit. Goal/Follow Up Appt: Follow-up with Eva at [facility] 08/03/18 at 1:20pm Activity & Diet Discharge Diet: ADA Diet VARSHA QUINONES DO Jul 24, 2018 10:38
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
[2018-07-24] MEDS: cefTRIAXone FOR IV USE 1,000 MG in NS (IVPB) 50 ML IV SCH (11:53)
[2018-07-24 12:25] VITALS: BP 133/85
== END 2018-07-24 12:25 | disposition home or self-care (01) | DRG 872 ==
LOC: EDUNIT# 09:17 → ER 09:18 → ICU 11:59 → 4TH 07-21 04:59
PROVIDERS: ADMIT Internal Medicine; ATTEND Internal Medicine
DX: A41.4 Sepsis due to anaerobes (principal); N39.0 Urinary tract infection, site not specified; L02.413 Cutaneous abscess of right upper limb; N17.9 Acute kidney failure, unspecified; E87.1 Hypo-osmolality and hyponatremia; L03.113 Cellulitis of right upper limb; J10.89 Influenza due to other identified influenza virus with other manifestations; E87.2 Acidosis; B95.7 Other staphylococcus as the cause of diseases classified elsewhere; M79.10 Myalgia, unspecified site; R68.83 Chills (without fever); I48.0 Paroxysmal atrial fibrillation; E87.6 Hypokalemia; D72.823 Leukemoid reaction; R07.1 Chest pain on breathing; I12.9 Hypertensive chronic kidney disease with stage 1 through stage 4 chronic kidney disease, or unspecified chronic kidney disease; N18.4 Chronic kidney disease, stage 4 (severe); Z87.891 Personal history of nicotine dependence; K21.9 Gastro-esophageal reflux disease without esophagitis; E11.9 Type 2 diabetes mellitus without complications; Z79.84 Long term (current) use of oral hypoglycemic drugs; M06.9 Rheumatoid arthritis, unspecified; M19.91 Primary osteoarthritis, unspecified site; H35.30 Unspecified macular degeneration; L40.9 Psoriasis, unspecified; N40.1 Benign prostatic hyperplasia with lower urinary tract symptoms; R30.0 Dysuria; N39.41 Urge incontinence
CPT/HCPCS: 36415; 71046; 80048; 80053; 80202; 81000; 82962; 83605; 84443; 84484; 85007; 85025; 85027; 85610; 85730; 87040; 87070; 87077; 87088; 87186; 87205; 87804; 93005; 93041; 96361; 96365

== ENCOUNTER 2018-11-18 10:55 | Inpatient (IN) | payer MEDICARE ==
[~2018-11-18] VITALS: Ht 170.2 cm; Wt 96.2 kg
[~2018-11-18 10:55] MED LIST changes: +BUME2TAB3 PO; +CALC0.253 PO; +METO-352 PO; +SULF1TAB35 PO
--- OUTSIDE RECORDS SUMMARY | 2018-11-18 11:07 | XMS REPORT ---
Author Author IGNACIA TIMMONS Organization [facility] Address [address] [place] [address] Care Team Providers Care Patrol Agent Name Role Phone IGNACIA TIMMONS Unavailable PROBLEMS Type Condition ICD9-CM Code [id number] Code Onset Dates Condition Status SNOMED Code Problem Rheumatoid arthritis, involving unspecified site, unspecified rheumatoid factor presence M06.9 Active 48184622 Problem End stage renal disease N18.6 Active 25657848 Problem 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 Active 740475466 Problem Dental examination V72.2 Active 94591450 Problem Type 2 diabetes mellitus with hyperglycemia, without long-term current use of insulin E11.65 Active 83886866 Problem Dialysis patient Z99.2 Active 927736176 Problem Erectile dysfunction due to diseases classified elsewhere N52.1 Active 121575646 Problem Essential hypertension I10 Active 17244051 Problem Benign prostatic hyperplasia with lower urinary tract symptoms N40.1 Active 70328080691623 Problem 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 Active 55872739 Problem Gait disturbance R26.9 Active 84407134 Problem Primary insomnia F51.01 Active 8530837 ALLERGIES No Information ENCOUNTERS Encounter Location Date Diagnosis [place] [id number] [place] [address] Aug, [place] [address] [place] [id number] [place] [address] Aug, Type 2 diabetes mellitus with hyperglycemia, without long- term current use of insulin E11.65 [place] [address] [place] [id number] [place] [address]36[address] Jul, Type 2 diabetes mellitus with hyperglycemia, without long- term current use of insulin E11.65 [place] [address] [place] [id number] [place] [address]118[address] 79[address] Jul, Type 2 diabetes mellitus with hyperglycemia, without long- term current use of insulin E11.65 ; Erectile dysfunction due to diseases classified elsewhere N52.1 and History of abscess of skin and subcutaneous tissue Z87.2 [place] [address] [place] [id number] [place] [address] 17663[address] 5810 Jul, [place] [address] [place] [id number] [place] [address] 85[address] 9[address] Jul, [place] [address] [place] [id number] [place] [address] 08895- 6486 Jun, Type 2 diabetes mellitus with hyperglycemia, without long- term current use of insulin E11.65 [place] [address] [place] [id number] [place] [address] 92821- 9164 Jun, [place] [address] [place] [id number] [place] [address] 95146- 5715 Jun, Type 2 diabetes mellitus with hyperglycemia, without long- term current use of insulin E11.65 [facility] [address] [place] [id number] [place] [phone] Jun, Dysuria R30.0 and Acute cystitis without hematuria N30.00 [place] [address] [place] [id number] [place] [address] 47535- 4686 Jun, Type 2 diabetes mellitus with hyperglycemia, without long- term current use of insulin E11.65 [place] [address] [place] [id number] [place] [address] 23497- 5094 May, [facility] [place] [address] [place] [id number] [place] [address] May, Bacterial skin infection of upper extremity L08.9 [place] [address] [place] [id number] [place] [address]14- [address]852 May, Type 2 diabetes mellitus with hyperglycemia, without long- term current use of insulin E11.65 [place] [address] [place] [id number] [place] [address] 21208- 4526 Apr, End stage renal disease N18.6 [place] [id number] [place] [address] Apr, [facility] [id number] [place] [address] Apr, [facility] [id number] [place] [address] Apr, Type 2 diabetes mellitus with hyperglycemia, without long- term current use of insulin E11.65 [place] [id number] [place] [address] Apr, [place] [id number] [place] [address] 93288- 5189 Apr, [place] [id number] [address] Apr, [facility] [address] [place] [id number] Apr, Type 2 diabetes mellitus with hyperglycemia, [...] hyperplasia with lower urinary tract symptoms N40.1 [place] [address] [place] [id number] [address] Apr, [place] [address] [place] [id number] [address] Mar, [place] [address] [place] [id number] [address] Mar, [facility] [address] [place] [id number] Mar, Type 2 diabetes mellitus with hyperglycemia, without long-term current use of insulin E11.65 ; End stage renal disease N18.6 and Shortness of breath R06.02 [facility] [address] [place] [id number] [address] 14 Mar, 2018 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 [facility] [id number] [place] [address] Mar, [facility] [id number] [place] [address] Mar, [place] [id number] [place] [address] Mar, [place] [id number] [address] Feb, [facility] [facility] [address] [place] [id number] Feb, Encounter for examination for admission to snf Z02.2 ; Type 2 diabetes mellitus with hyperglycemia, without long-term current use of insulin E11.65 ; 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 ; Osteopenia of multiple sites M85.89 ; End stage renal disease N18.6 ; Dialysis patient Z99.2 and Rheumatoid arthritis, involving unspecified site, unspecified rheumatoid factor presence M06.9 [place] [id number] [address] Feb, [facility] [address] [place] [address] May, Dental examination Z01.20 [facility] [address] [place] [address] May, [facility] [address] [place] [address] May, Dental examination Z01.20 [facility] [address] [place] [address] May, [facility] [address] [place] [address] Apr, Dental examination Z01.20 [facility] [address] [place] [address] Dec, Dental examination Z01.20 [facility] [address] [place] [address] Oct, Dental examination Z01.20 [facility] [address] [place] [address] Oct, Dental examination Z01.20 [facility] [address] [place] [address] Sep, Dental examination Z01.20 [facility] [address] [place] [address] Aug, Dental examination Z01.20 [facility] [address] [place] [address] Jul, Dental examination Z01.[address] [facility] [address] [place] [address] Jul, Dental examination Z01.20 [facility] [address] [place] [address] Jun, Dental examination Z01.20 [facility] [id number] [place] [address] Dec, [facility] [id number] [place] [address] Dec, [facility] [id number], [place] [address] Mar, [facility] [id number] [place] [address] Mar, [facility] [id number] [place] [address] Mar, [facility] [id number] [place] [address] Feb, [facility] [address] [place] [id number] [place] [id number] January, [facility] [id number], [place] [address] January, IMMUNIZATIONS No Known Immunizations SOCIAL HISTORY Never Assessed REASON FOR VISIT Requests return call PLAN OF CARE VITAL SIGNS MEDICATIONS Medication Instructions Dosage Frequency Start Date End Date Duration Status GlipiZIDE 5 MG Orally 2 times a day 1 tablet 12h Aug, 30 day(s ) Active Trulicity 0.75 MG/0.5ML Subcutaneous once weekly 0.5ml Aug, 4 weeks Active Insulin Detemir 100 UNIT/ML Subcutaneous 2 times a day 15 units 12h Jun Active RESULTS No Results PROCEDURES No Known procedures INSTRUCTIONS MEDICATIONS ADMINISTERED No Known Medications MEDICAL (GENERAL) HISTORY Type Description Date Medical History Mild High Blood Pressure Medical History Diabetes Type 2 Medical History Arthritis Surgical History umbilical hernia Hospitalization History Renal failure 02/2018 Hospitalization History Chest pain-[facility] 03/31/18
--- OUTSIDE RECORDS SUMMARY | 2018-11-18 11:07 | XMS REPORT ---
Author Author IGNACIA TIMMOSN Organization [facility] Address [address] [place] [address] Care Team Providers Care Vascular Surgery Physician Name Role Phone IGNACIA TIMMONS Unavailable PROBLEMS Type Condition ICD9-CM Code [id number] Code Onset Dates Condition Status SNOMED Code Problem Rheumatoid arthritis, involving unspecified site, unspecified rheumatoid factor presence M06.9 Active 39998894 Problem End stage renal disease N18.6 Active 81114797 Problem 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 Active 485552697 Problem Dental examination V72.2 Active 35851309 Problem Type 2 diabetes mellitus with hyperglycemia, without long-term current use of insulin E11.65 Active 35855892 Problem Dialysis patient Z99.2 Active 773081883 Problem Erectile dysfunction due to diseases classified elsewhere N52.1 Active 377204475 Problem Essential hypertension I10 Active 94015758 Problem Benign prostatic hyperplasia with lower urinary tract symptoms N40.1 Active 25610423016435 Problem 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 Active 68688724 Problem Gait disturbance R26.9 Active 60996097 Problem Primary insomnia F51.01 Active 6960274 ALLERGIES Substance Reaction Event Type Date Status Sulfacetamide Sodium Unknown Drug Allergy Aug, Active ENCOUNTERS Encounter Location Date Diagnosis [place] [id number] [place] [address] 58363- 5969 Aug, Type 2 diabetes mellitus with hyperglycemia, without long- term current use of insulin E11.65 [place] [address] [place] [address] 11045- 0822 Aug, [place] [address] [place] [address] 58316- 8253 Aug, Type 2 diabetes mellitus with hyperglycemia, without long- term current use of insulin E11.65 ; Seborrheic keratoses L82.1 ; Other viral warts B07.8 and End stage renal disease N18.6 [place] [address] [place] [id number] [place] [address] 28254- 6173 Aug, Type 2 diabetes mellitus with hyperglycemia, without long- term current use of insulin E11.65 [place] [address] [place] [id number] [place] [address] 66811- 0164 Jul, Type 2 diabetes mellitus with hyperglycemia, without long- term current use of insulin E11.65 [place] [address] [address]- 69[address] Jul, Type 2 diabetes mellitus with hyperglycemia, without long- term current use of insulin E11.65 ; Erectile dysfunction due to diseases classified elsewhere N52.1 and History of abscess of skin and subcutaneous tissue Z87.2 [place] [address] [place] [id number] [place] [address] 75991- 1463 Jul, [place] [address] 79263- 5758 Jul, [place] [address] 76789- 6132 Jun, Type 2 diabetes mellitus with hyperglycemia, without long- term current use of insulin E11.65 [place] [address] [place] [id number] [place] [address] 35370- 0631 Jun, [place] [address] [place] [id number] [place] [address] 71057- 8125 Jun, Type 2 diabetes mellitus with hyperglycemia, without long- term current use of insulin E11.65 [facility] [address] [place] [id number] [place] [address] 73491 -6758 Jun, Dysuria R30.0 and Acute cystitis without hematuria N30.00 [place] [address] [place] [id number] [place] [address] 03048- 5965 Jun, Type 2 diabetes mellitus with hyperglycemia, without long- term current use of insulin E11.65 [place] [address] [place] [id number] [place] [address] 23654- 9136 May, [facility] [address] [address] May, Bacterial skin infection of upper extremity L08.9 [facility] [address] [address] May, Type 2 diabetes mellitus with hyperglycemia, without long- term current use of insulin E11.65 [facility] [address] [address] 44[address] Apr, End stage renal disease N18.6 [facility] [address] [address] 6[address] Apr, [facility] [address] [place] [id number] [place] [address] 47055- 9268 Apr, [facility] [address] [place] [address] 95961- 8992 Apr, Type 2 diabetes mellitus with hyperglycemia, without long- term current use of insulin E11.65 [facility] [address] [address] Apr, [facility] [address] [place] [address] 69322- 1094 Apr, [facility] [address] [place] [address] 98854- 3707 Apr, Via [facility] [address] [place] [id number] Apr, Type 2 diabetes mellitus with hyperglycemia, [...] hyperplasia with lower urinary tract symptoms N40.1 [facility] [address] [address] 77[address] Apr, [facility] [address] [address] 6565 Mar, [facility] [address] [address] 74[address] Mar, Via [facility] [address] [place] [id number] Mar, Type 2 diabetes mellitus with hyperglycemia, without long-term current use of insulin E11.65 ; End stage renal disease N18.6 and Shortness of breath R06.02 [place] [address] [place] [address] 70213- 9509 Mar, 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 [place] [address] [address] 1395 Mar, [place] [address] [place] [id number] [place] [address] 43219- 8912 Mar, [place] [address] [address] 9261 Mar, [place] [address] [place] [address] 38731- 9826 Feb, Via [facility] [address] [place] [id number] Feb, Encounter for examination for admission to alf Z02.2 ; Type 2 diabetes mellitus with hyperglycemia, without long-term current use of insulin E11.65 ; 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 ; Osteopenia of multiple sites M85.89 ; End stage renal disease N18.6 ; Dialysis patient Z99.2 and Rheumatoid arthritis, involving unspecified site, unspecified rheumatoid factor presence M06.9 [place] [address] [place] [address] 55002- 7051 Feb, [facility] [address] [place] [address] May, Dental examination Z01.20 [facility] [address] [place] [address] May, [facility] [address] [place] [address] May, Dental examination Z01.20 [facility] [address] [place] [address] May, [facility] [address] [place] [address] Apr, Dental examination Z01.20 [facility] [address] [place] [address] Dec, Dental examination Z01.20 [facility] [address] [place] [address] Oct, Dental examination Z01.20 [facility] [address] [place] [address] Oct, Dental examination Z01.20 [facility] [address] [place] [address] Sep, Dental examination Z01.20 [facility] [address] [place] [address] Aug, Dental examination Z01.20 [facility] [address] [place] [address] Jul, Dental examination Z01.20 [facility] [address] [place] [address] Jul, Dental examination Z01.20 [facility] [address] [place] [address] Jun, Dental examination Z01.20 [facility] [address] [place] [id number] [address] 14 Dec, 2014 [facility] [address] [address] Dec, [facility] [address] [address] Mar, [facility] [address] [place] [id number] [address] 4[address] Mar, [facility] [address] [facility] [id number] [address] Mar, [facility] [address] [facility] [id number] [address] Feb, [facility] [address] [facility] [id number] [address] January, [facility] [address] [facility] [id number] January, IMMUNIZATIONS No Known Immunizations SOCIAL HISTORY Never Assessed REASON FOR VISIT Diabetes Pt c/o something growing in groin for about a month or two, states looks like little black warts, NOAM Macdonald PLAN OF CARE Activity Details Follow Up 2 Months Reason:DM Future/Pending Procedure CRYOTHERAPY OF SKIN VITAL SIGNS Height 67 in 2018-09-02 Weight 209.3 lbs 2018-09-02 Temperature 98.5 degrees Fahrenheit 2018-09-02 Heart Rate 86 bpm 2018-09-02 Respiratory Rate 18 2018-09-02 Oximetry on room air:95 % 2018-09-02 BMI 32.78 kg/m2 2018-09-02 Blood pressure systolic 156 mmHg 2018-09-02 Blood pressure diastolic 82 mmHg 2018-09-02 MEDICATIONS Medication Instructions Dosage Frequency Start Date End Date Duration Status Ergocalciferol 98880 UNIT Orally once weekly on Tuesdays 1 capsule Sep, 90 days Active Tamsulosin HCl 0.4 MG Orally Once a day 1 capsule 24h Active Melatonin 3 MG Orally Once a day 2 tablets at bedtime 24h 90 days Active PredniSONE 5 mg Orally Once a day 1 tablet 24h Apr, Sep, 90 days Active Bumetanide 2 MG Orally 2 times a day 1 tablet 12h 90 days Active Polyethylene Glycol 3350 - Orally 28 days 17 grams Apr, Sep, 90 days Active PredniSONE 5 mg Orally twice a day 1 tablet 12h Active GlipiZIDE 5 MG Orally 2 times a day 1 tablet 12h Aug, 30 day(s ) Active ReliOn Blood Glucose Test - subcutaneously fasting and 2 hours after meal as directed Jun, 50 days Active Tylenol 325 MG Orally every 4 hrs 2 tablets as needed 4h Active Eliquis 2.5 MG Orally 2 times a day 1 tablet 12h 90 days Active Tamsulosin HCl 0.4 MG Orally Once a day 1 capsule 24h Apr,Sep 90 days Active Anusol-HC 25 MG Rectal every 4 hrs 1 suppository as needed 4h Active Insulin Detemir 100 UNIT/ML Subcutaneous 2 times a day 15 units 12h Jun Active Toprol XL 50 mg Orally Once a day 1 tablet 24h Apr, 90 days Active Colace 100 mg Orally Once a day 1 capsule 24h Sep, 90 days Active Trulicity 0.75 MG/0.5ML Subcutaneous once weekly 0.5ml Aug, 4 weeks Active Metoprolol Succinate ER 50 MG Orally Once a day 1 tablet 24h Active Bisacodyl 10 MG Rectal Once a day 1 suppository as needed 24h Active Viagra 50 MG Orally Once a day 1 tablet as needed 1 hour prior to intercourse 24h Jul, 30 day(s) Active RESULTS Name Result Date Reference Range A1C (IN HOUSE) 2018-09-02 A1C IN HOUSE 9.7 4.3 - 5.6 % Previous A1c 8.6 Lot [id number] Exp date 05/2020 UA LONG DIP (IN HOUSE) 2018-09-02 Lot # [id number] Exp date 04-21-2019 Clarity sl cloudy Color yellow Odor none GLU negative PATTI negative KET negative SG 1.010 BLO 1+ pH 5.5 Protein negative URO 0.2 NIT negtive JOSE 1+ Lot # [id number] Exp date 08/2018 PROCEDURES Procedure Date Ordered Result Body Site GLYCATED HEMOGLOBIN TEST Sep 02, 2018 URINALYSIS, AUTO, W/O SCOPE Sep 02, 2018 [facility] VISIT ESTABLISHED PATIENT Sep 02, 2018 CRYOTHERAPY OF SKIN Sep 02, 2018 INSTRUCTIONS MEDICATIONS ADMINISTERED No Known Medications MEDICAL (GENERAL) HISTORY Type Description Date Medical History Mild High Blood Pressure Medical History Diabetes Type 2 Medical History Arthritis Surgical History umbilical hernia Hospitalization History Renal failure 02/2018 Hospitalization History Chest pain-[facility] 03/31/18
--- OUTSIDE RECORDS SUMMARY | 2018-11-18 11:07 | XMS REPORT ---
Author Author IGNACIA TIMMONS Organization [facility] Address [address] [place] [address] Care Team Providers Care Facilitator Name Role Phone IGNACIA TIMMONS Unavailable PROBLEMS Type Condition ICD9-CM Code PIB18-ET Code Onset Dates Condition Status SNOMED Code Problem Rheumatoid arthritis, involving unspecified site, unspecified rheumatoid factor presence M06.9 Active 18143816 Problem End stage renal disease N18.6 Active 28461442 Problem 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 Active 848930893 Problem Dental examination V72.2 Active 59884689 Problem Type 2 diabetes mellitus with hyperglycemia, without long-term current use of insulin E11.65 Active 59265132 Problem Dialysis patient Z99.2 Active 049246715 Problem Erectile dysfunction due to diseases classified elsewhere N52.1 Active 684957184 Problem Essential hypertension I10 Active 29476570 Problem Benign prostatic hyperplasia with lower urinary tract symptoms N40.1 Active 76355281403831 Problem 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 Active 97053773 Problem Gait disturbance R26.9 Active 04690587 Problem Primary insomnia F51.01 Active 3044520 ALLERGIES No Information ENCOUNTERS Encounter Location Date Diagnosis [place] [address] [place] [address] 92629- 1512 Aug, Type 2 diabetes mellitus with hyperglycemia, without long- term current use of insulin E11.65 [place] [address] [place] [address] 34518- 5271 Aug, [place] [address] [place] [id number] [place] [address] 23381- 0657 Aug, Type 2 diabetes mellitus with hyperglycemia, without long- term current use of insulin E11.65 ; Seborrheic keratoses L82.1 ; Other viral warts B07.8 and End stage renal disease N18.6 [place] [address] [place] [id number] [place] [address] 86407- 4111 Aug, Type 2 diabetes mellitus with hyperglycemia, without long- term current use of insulin E11.65 [place] [address] [place] [id number] [place] [address] 95588- 3383 Jul, Type 2 diabetes mellitus with hyperglycemia, without long- term current use of insulin E11.65 [place] [address] 14140- 9843 Jul, Type 2 diabetes mellitus with hyperglycemia, without long- term current use of insulin E11.65 ; Erectile dysfunction due to diseases classified elsewhere N52.1 and History of abscess of skin and subcutaneous tissue Z87.2 [place] [address] 43582- 4531 Jul, [place] [address] 19437- 7275 Jul, [place] [address] 86592- 5513 Jun, Type 2 diabetes mellitus with hyperglycemia, without long- term current use of insulin E11.65 [place] [address] [place] [id number] [place] [address] 43755- 9854 Jun, [place] [address] [place] [id number] [place] [address] 58176- 9633 Jun, Type 2 diabetes mellitus with hyperglycemia, without long- term current use of insulin E11.65 [facility] [address] [place] [id number] [place] [address] 84580 -6522 Jun, Dysuria R30.0 and Acute cystitis without hematuria N30.00 [place] [address] 26794- 7928 Jun, Type 2 diabetes mellitus with hyperglycemia, without long- term current use of insulin E11.65 [place] [address] [place] [id number] [place] [address] 00800- 9972 May, [facility] [address] [address] May, Bacterial skin infection of upper extremity L08.9 [facility] [address] [place] [address] 25695- 4697 May, Type 2 diabetes mellitus with hyperglycemia, without long- term current use of insulin E11.65 [facility] [address] [address]- 0217 Apr, End stage renal disease N18.6 [place] [address] [place] [address] 47876- 1887 Apr, [place] [address] [place] [id number] [place] [address] 43984- 4172 Apr, [place] [address] [place] [id number] [place] [address] 27433- 7603 Apr, Type 2 diabetes mellitus with hyperglycemia, without long- term current use of insulin E11.65 [place] [address] [address]- 1634 Apr, [place] [address] [place] [id number] [place] [address] 01625- 0699 Apr, [place] [address] [place] [address] 60004- 5764 Apr, Via [facility] [address] [place] [id number] Apr, Type 2 diabetes mellitus with hyperglycemia, [...] hyperplasia with lower urinary tract symptoms N40.1 [place] [address] [address]- 8470 Apr, [facility] [address] [address]- 2504 Mar, [facility] [address] [address]- 5065 Mar, Via [email or web address] [address] [place] [id number] Mar, Type 2 diabetes mellitus with hyperglycemia, without long-term current use of insulin E11.65 ; End stage renal disease N18.6 and Shortness of breath R06.02 [facility] [address] [address]- 3089 Mar, 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 [place] [address] [address]- 0389 Mar, [place] [address] [address]- 6481 Mar, [place] [address] [address]- 2575 Mar, [facility] [address] [place] [id number] [address]- 5899 Feb, Via [email or web address] [address] [place] [id number] Feb, Encounter for examination for admission to snf Z02.2 ; Type 2 diabetes mellitus with hyperglycemia, without long-term current use of insulin E11.65 ; 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 ; Osteopenia of multiple sites M85.89 ; End stage renal disease N18.6 ; Dialysis patient Z99.2 and Rheumatoid arthritis, involving unspecified site, unspecified rheumatoid factor presence M06.9 [facility] [address] [address]- 8322 Feb, [facility] [address] [place] [address] May, Dental examination Z01.20 [facility] [address] [place] [address] May, [facility] [address] [place] [address] May, Dental examination Z01.20 [facility] [address] [place] [address] May, [facility] [address] [place] [address] Apr, Dental examination Z01.20 [facility] [address] [place] [address] Dec, Dental examination Z01.20 [facility] [address] [place] [address] Oct, Dental examination Z01.20 [facility] [address] [place] [address] Oct, Dental examination Z01.20 [facility] [address] [place] [address] Sep, Dental examination Z01.20 [facility] [address] [place] [address] Aug, Dental examination Z01.20 [facility] [address] [place] [address] Jul, Dental examination Z01.20 [facility] [address] [place] [address] Jul, Dental examination Z01.20 [facility] [address] [place] [address] Jun, Dental examination Z01.20 [facility] [address] [address] Dec, [facility] [address] [place] [id number] [address] 7607 Dec, [facility] [address] [place] [id number] [address] Mar, [facility] [address] [place] [id number] [address] 7077 Mar, [facility] [address] [place] [address], [place] [address]- 2546 Mar, [facility] [address] [facility] [id number] [address] Feb, [facility] [address] [facility] [id number] [address] January, [facility] [address] [facility] [id number] [address] January, IMMUNIZATIONS No Known Immunizations SOCIAL HISTORY Never Assessed REASON FOR VISIT Medication question PLAN OF CARE VITAL SIGNS MEDICATIONS Medication Instructions Dosage Frequency Start Date End Date Duration Status Levemir FlexTouch 100 UNIT/ML Subcutaneous 2 times a day 20 units 12h 24 Aug, 2018 daily Active RESULTS No Results PROCEDURES No Known procedures INSTRUCTIONS MEDICATIONS ADMINISTERED No Known Medications MEDICAL (GENERAL) HISTORY Type Description Date Medical History Mild High Blood Pressure Medical History Diabetes Type 2 Medical History Arthritis Surgical History umbilical hernia Hospitalization History Renal failure 02/2018 Hospitalization History Chest [facility] 03/31/18
--- OUTSIDE RECORDS SUMMARY | 2018-11-18 11:07 | XMS REPORT ---
Author Author IGNACIA TIMMONS Organization [facility] Address [address] [place] [address] Care Team Providers Care Inspector Final Assembly Conveyor Line Name Role Phone IGNACIA TIMMONS Unavailable PROBLEMS Type Condition ICD9-CM Code VGR82-CO Code Onset Dates Condition Status SNOMED Code Problem Rheumatoid arthritis, involving unspecified site, unspecified rheumatoid factor presence M06.9 Active 01358898 Problem End stage renal disease N18.6 Active 70378764 Problem 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 Active 417033352 Problem Dental examination V72.2 Active 63065993 Problem Type 2 diabetes mellitus with hyperglycemia, without long-term current use of insulin E11.65 Active 04586297 Problem Dialysis patient Z99.2 Active 460928804 Problem Erectile dysfunction due to diseases classified elsewhere N52.1 Active 681893242 Problem Essential hypertension I10 Active 50370441 Problem Benign prostatic hyperplasia with lower urinary tract symptoms N40.1 Active 72107330316812 Problem 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 Active 31200077 Problem Gait disturbance R26.9 Active 31114458 Problem Primary insomnia F51.01 Active 8112885 ALLERGIES No Information ENCOUNTERS Encounter Location Date Diagnosis [place] [address] [place] [address]153- 5594 Aug, [place] [address] [place] [id number] [place] [address] 88904- 0361 Aug, Type 2 diabetes mellitus with hyperglycemia, without long- term current use of insulin E11.65 ; Seborrheic keratoses L82.1 ; Other viral warts B07.8 and End stage renal disease N18.6 [place] [address] [place] [address] 66703- 4321 Aug, Type 2 diabetes mellitus with hyperglycemia, without long- term current use of insulin E11.65 [place] [address] [place] [id number] [address] Jul, Type 2 diabetes mellitus with hyperglycemia, without long- term current use of insulin E11.65 [place] [address] [place] [id number] [place] [address] 08633- 5332 Jul, Type 2 diabetes mellitus with hyperglycemia, without long- term current use of insulin E11.65 ; Erectile dysfunction due to diseases classified elsewhere N52.1 and History of abscess of skin and subcutaneous tissue Z87.2 [place] [address] [place] [id number] [place] [address] 88442- 7621 Jul, [place] [address] [place] [id number] [place] [address] 66261- 6052 Jul, [place] [address] [place] [id number] [place] [address] 68966- 9927 Jun, Type 2 diabetes mellitus with hyperglycemia, without long- term current use of insulin E11.65 [place] [address] [place] [id number] [place] [address] 19831- 7308 Jun, [place] [address] [place] [id number] [place] [address] 08190- 4326 Jun, Type 2 diabetes mellitus with hyperglycemia, without long- term current use of insulin E11.65 [facility] [place] [address] [place] [address] 23052 -4839 Jun, Dysuria R30.0 and Acute cystitis without hematuria N30.00 [place] [address] [place] [address] 12800- 4775 Jun, Type 2 diabetes mellitus with hyperglycemia, without long- term current use of insulin E11.65 [place] [address] [place] [id number] [place] [address] 47055- 3155 May, [facility] [address] [place] [address] 52732 -0301 May, Bacterial skin infection of upper extremity L08.9 [place] [address] [place] [address]- 8845 May, Type 2 diabetes mellitus with hyperglycemia, without long- term current use of insulin E11.65 [facility] [address] [place] [address] 34482- 1840 Apr, End stage renal disease N18.6 [facility] [address] [place] [address] 89706- 2287 Apr, [facility] [address] [place] [id number] [place] [address] 19315- 4737 Apr, [facility] [address] [place] [id number] [place] [address] 82987- 3978 Apr, Type 2 diabetes mellitus with hyperglycemia, without long- term current use of insulin E11.65 [place] [address] [place] [id number] [place] [address] 75696- 4178 Apr, [place] [address] [place] [id number] [place] [address] 57853- 3717 Apr, [place] [address] [place] [id number] [place] [address] 84362- 3357 Apr, [facility] [employer] [facility] [address] [place] [id number] Apr, Type 2 diabetes mellitus with hyperglycemia, [...] hyperplasia with lower urinary tract symptoms N40.1 [place] [address] [place] [address] 02179- 3236 Apr, [place] [address] [place] [address] 58261- 8414 Mar, [place] [address] [place] [id number] [address] 4181 Mar, [facility] [employer] [facility] [address] [place] [id number] Mar, Type 2 diabetes mellitus with hyperglycemia, without long-term current use of insulin E11.65 ; End stage renal disease N18.6 and Shortness of breath R06.02 [place] [address] [address] 7102 Mar, 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 [facility] [address] [place] [id number] [place] [address] 52415- 9075 Mar, [place] [address] [place] [id number] [place] [address] 87639- 3187 Mar, [place] [address] [place] [id number] [place] [address] 98452- 1938 Mar, [place] [address] [place] [id number] [place] [address] 38531- 8649 Feb, [facility] [employer] [facility] [address] [place] [id number] Feb, Encounter for examination for admission to [facility] Z02.2 ; Type 2 diabetes mellitus with hyperglycemia, without long-term current use of insulin E11.65 ; 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 ; Osteopenia of multiple sites M85.89 ; End stage renal disease N18.6 ; Dialysis patient Z99.2 and Rheumatoid arthritis, involving unspecified site, unspecified rheumatoid factor presence M06.9 [place] [address] [address] 6464 Feb, [facility] [address] [place] [address] May, Dental examination Z01.20 [facility] [address] [place] [address] May, [facility] [address] [place] [address] 08 May, 2016 Dental examination Z01.20 [facility] [address] [place] [address] May, [facility] [place] [address] [place] [address] Apr, Dental examination Z01.20 [facility] [address] [place] [address] Dec, Dental examination Z01.20 [facility] [address] [place] [address] Oct, Dental examination Z01.20 [facility] [address] [place] [address] Oct, Dental examination Z01.20 [facility] [address] [place] [address] Sep, Dental examination Z01.20 [facility] [place] [address] [place] [address] Aug, Dental examination Z01.20 [facility] [place] [address] [place] [address] Jul, Dental examination Z01.20 [facility] [place] [address] [place] [address] Jul, Dental examination Z01.20 [facility] [address] [place] [address] Jun, Dental examination Z01.20 [facility] [address] [address] 14 Dec, 2014 [facility] [address] [address] Dec, [facility] [address] [address] 9698 Mar, [facility] [address] [place] [id number] [address] 2813 Mar, [facility] [address] [address] [address] Mar, [facility] [address] [address] 7522 Feb, [facility] [address] [facility] [id number] [place] [address] January, [facility] [address] [facility] [id number] [address] January, IMMUNIZATIONS No Known Immunizations SOCIAL HISTORY Never Assessed REASON FOR VISIT refill request PLAN OF CARE VITAL SIGNS MEDICATIONS Unknown Medications RESULTS No Results PROCEDURES No Known procedures INSTRUCTIONS MEDICATIONS ADMINISTERED No Known Medications MEDICAL (GENERAL) HISTORY Type Description Date Medical History Mild High Blood Pressure Medical History Diabetes Type 2 Medical History Arthritis Surgical History umbilical hernia Hospitalization History Renal failure 02/2018 Hospitalization History Chest pain-VC 03/31/18
--- OUTSIDE RECORDS SUMMARY | 2018-11-18 11:08 | XMS REPORT ---
Author Author IGNACIA TIMMONS [facility] Address [address] [place] [address] Care Team Providers Care Real Estate Specialist Name Role Phone IGNACIA TIMMONS Unavailable PROBLEMS Type Condition ICD9-CM Code SKD82-AZ Code Onset Dates Condition Status SNOMED Code Problem Dialysis patient Z99.2 Active 832702763 Problem 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 Active 639387996 Problem Rheumatoid arthritis, involving unspecified site, unspecified rheumatoid factor presence M06.9 Active 04102640 Problem Dental examination V72.2 Active 89982721 Problem Type 2 diabetes mellitus with hyperglycemia, without long-term current use of insulin E11.65 Active 84972052 Problem Essential hypertension I10 Active 71927852 Problem Gait disturbance R26.9 Active 12070326 Problem 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 Active 90470624 Problem End stage renal disease N18.6 Active 95799880 Problem Primary insomnia F51.01 Active 9772040 Problem Benign prostatic hyperplasia with lower urinary tract symptoms N40.1 Active [id number] ALLERGIES No Information ENCOUNTERS Encounter Location Date Diagnosis [facility] [address] [place] [address] 64452- 1229 Jul, [facility] [address] [place] [id number] [place] [address] 63228- 8341 Jul, [facility] [address] [place] [id number] [place] [address] 89140- 5958 Jul, [facility] [address] [place] [id number] [place] [address] 39503- 4382 Jul, [facility] [address] [place] [id number] [place] [address] 13460- 5870 24 Jun, 2018 Type 2 diabetes mellitus with hyperglycemia, without long- term current use of insulin E11.65 [facility] [address] [place] [id number] [address]- 4703 Jun, [facility] [address] [place] [address] 57072- 4610 Jun, Type 2 diabetes mellitus with hyperglycemia, without long- term current use of insulin E11.65 [facility] [address] [place] [address] 06823 -1407 Jun, Dysuria R30.0 and Acute cystitis without hematuria N30.00 [place] [address] [place] [address] 42350- 9660 Jun, Type 2 diabetes mellitus with hyperglycemia, without long- term current use of insulin E11.65 [place] [address] [place] [address] 74026- 9871 May, [facility] [address] [place] [id number] [place] [address] 05044 -5613 May, Bacterial skin infection of upper extremity L08.9 [place] [address] [place] [address] 72191- 4487 May, Type 2 diabetes mellitus with hyperglycemia, without long- term current use of insulin E11.65 [place] [address] [place] [address] 96938- 1651 Apr, End stage renal disease N18.6 [place] [address] [place] [address] 73595- 6823 Apr, [place] [address] [place] [address] 20833- 0352 Apr, [place] [address] [place] [id number] [place] [address] 99424- 2270 Apr, Type 2 diabetes mellitus with hyperglycemia, without long- term current use of insulin E11.65 [place] [address], [place] [address]- 6380 Apr, [place] [address] [place] [id number] [place] [address] 56528- 9996 Apr, [place] [address] [address] 1669 Apr, [facility] [employer] [address] [place] [id number] Apr, Type 2 diabetes mellitus with hyperglycemia, [...] hyperplasia with lower urinary tract symptoms N40.1 [place] [address], [place] [address]- 6823 Apr, [place] [address] [place] [id number] [place] [address] 42227- 7137 Mar, [place] [address] [place] [id number] [place] [address] 34592- 7098 Mar, [facility] [employer] [address] [place] [id number] Mar, Type 2 diabetes mellitus with hyperglycemia, without long-term current use of insulin E11.65 ; End stage renal disease N18.6 and Shortness of breath R06.02 [place] [address], [place] [address]- 4354 Mar, 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 [place] [address], [place] [address]- 5402 Mar, [place] [address] [place] [address] 66567- 5360 Mar, [facility] [address] [address] 5654 Mar, [place] [address] [place] [address] 51655- 9111 Feb, [facility] [address] [place] [id number] Feb, Encounter for examination for admission to [facility] Z02.2 ; Type 2 diabetes mellitus with hyperglycemia, without long-term current use of insulin E11.65 ; 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 ; Osteopenia of multiple sites M85.89 ; End stage renal disease N18.6 ; Dialysis patient Z99.2 and Rheumatoid arthritis, involving unspecified site, unspecified rheumatoid factor presence M06.9 [facility] [address] [facility] [id number] [address]- 4026 Feb, [facility] [address] [place] [address] May, Dental examination Z01.20 [facility] [address] [place] [address] May, [facility] [address] [place] [address] May, Dental examination Z01.20 [facility] [address] [place] [address] May, [facility] [address] [place] [address] Apr, Dental examination Z01.20 [facility] [address] [place] [address] Dec, Dental examination Z01.20 [facility] [address] [place] [address] Oct, Dental examination Z01.20 [facility] [address] [place] [address] Oct, Dental examination Z01.20 [facility] [address] [place] [address] Sep, Dental examination Z01.20 [facility] [address] [place] [address] Aug, Dental examination Z01.20 [facility] [address] [place] [address] Jul, Dental examination Z01.20 [facility] [address] [place] [address] Jul, Dental examination Z01.20 [facility] [address] [place] [address] Jun, Dental examination Z01.20 [facility] [address], [place] [address] 14 Dec, 2014 [facility] [address], [place] [address]- 6456 Dec, [facility] [address], [place] [address]- 8623 Mar, [facility] [address] [place] [address] 75727- 8319 Mar, [facility] [address], [place] [address]- 0178 Mar, [facility] [address], [place] [address]- 0337 Feb, [facility] [address], [place] [address]- 5814 January, [facility] [address], [place] [address]- 7361 January, IMMUNIZATIONS No Known Immunizations SOCIAL HISTORY Never Assessed REASON FOR VISIT BS too high PLAN OF CARE VITAL SIGNS MEDICATIONS Unknown Medications RESULTS No Results PROCEDURES No Known procedures INSTRUCTIONS MEDICATIONS ADMINISTERED No Known Medications MEDICAL (GENERAL) HISTORY Type Description Date Medical History Mild High Blood Pressure Medical History Diabetes Type 2 Medical History Arthritis Surgical History umbilical hernia Hospitalization History Renal failure 02/2018 Hospitalization History Chest pain-VC 03/31/18
--- OUTSIDE RECORDS SUMMARY | 2018-11-18 11:08 | XMS REPORT ---
Author Author VARSHA QUINONES [facility] Address [address] [place] [address] Care Team Providers Care Confidential Secretary Name Role Phone VARSHA QUINONES Unavailable PROBLEMS Type Condition ICD9-CM Code VRD00-HV Code Onset Dates Condition Status SNOMED Code Problem Dialysis patient Z99.2 Active 616240805 Problem 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 Active 488938720 Problem Rheumatoid arthritis, involving unspecified site, unspecified rheumatoid factor presence M06.9 Active 17325037 Problem Dental examination V72.2 Active 88284491 Problem Type 2 diabetes mellitus with hyperglycemia, without long-term current use of insulin E11.65 Active 97857544 Problem Essential hypertension I10 Active 10135502 Problem Gait disturbance R26.9 Active 52845030 Problem 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 Active 19331880 Problem End stage renal disease N18.6 Active 82161298 Problem Primary insomnia F51.01 Active 1908276 Problem Benign prostatic hyperplasia with lower urinary tract symptoms N40.1 Active [id number] ALLERGIES No Information ENCOUNTERS Encounter Location Date Diagnosis [facility] [id number] [place] [address]3675- 0543 Jul, [facility] [id number] [place] [address] 11265- 9844 Jul, [facility] [id number] [place] [address] 49105- 6107 Jul, [facility] [id number] [place] [address] 47490- 5936 Jun, Type 2 diabetes mellitus with hyperglycemia, without long- term current use of insulin E11.65 [facility] [id number] [place] [address] 22484- 8103 Jun, [facility] [id number] [place] [address] 78968- 0574 Jun, Type 2 diabetes mellitus with hyperglycemia, without long- term current use of insulin E11.65 [facility] [address], [place] [address] Jun, Dysuria R30.0 and Acute cystitis without hematuria N30.00 [facility] [address] [place] [address] 89761- 5942 Jun, Type 2 diabetes mellitus with hyperglycemia, without long- term current use of insulin E11.65 [facility] [address] [place] [address] 92633- 1043 May, [facility] [id number] [place] [address] 88429 [address]9690 May, Bacterial skin infection of upper extremity L08.9 [facility] [id number] [place] [address] 22824- 7648 May, Type 2 diabetes mellitus with hyperglycemia, without long- term current use of insulin E11.65 [facility] [address] [place] [address] 95058- 7676 Apr, End stage renal disease N18.6 [facility] [address] [place] [address] 82222- 3226 Apr, [facility] [address] [address] Apr, [facility] [id number] [place] [address] 51798- 8083 Apr, Type 2 diabetes mellitus with hyperglycemia, without long- term current use of insulin E11.65 [facility] [address] [place] [address] 37550- 7436 Apr, [facility] [address] [place] [address] 95633- 5882 Apr, [facility] [id number] [place] [address] 96748- 0243 Apr, [facility] [address] [place] [id number] Apr, Type 2 diabetes mellitus with hyperglycemia, [...] hyperplasia with lower urinary tract symptoms N40.1 [facility] [id number] [place] [address] 11557- 5264 Apr, [facility] [id number] [place] [address] 88710- 8513 Mar, [facility] [id number] [place] [address] 89390- 6519 Mar, [facility] [address] [place] [id number] Mar, Type 2 diabetes mellitus with hyperglycemia, without long-term current use of insulin E11.65 ; End stage renal disease N18.6 and Shortness of breath R06.02 [facility] [id number] [place] [address] 07259- 3449 Mar, 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 [facility] [id number] [place] [address] 19209- 5473 Mar, [facility] [id number] [place] [address] 70441- 2077 Mar, [facility] [id number] [place] [address] 63477- 5670 Mar, [facility] [id number] [place] [address] 28978- 6788 Feb, [facility] [address] [place] [id number] Feb, Encounter for examination for admission to prison Z02.2 ; Type 2 diabetes mellitus with hyperglycemia, without long-term current use of insulin E11.65 ; 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 ; Osteopenia of multiple sites M85.89 ; End stage renal disease N18.6 ; Dialysis patient Z99.2 and Rheumatoid arthritis, involving unspecified site, unspecified rheumatoid factor presence M06.9 [facility] [address] [facility] [id number] [place] [address] Feb, 2018 [facility] [address] [place] [address] May, Dental examination Z01.20 [facility] [address] [place] [address] May, [facility] [address] [place] [address] May, Dental examination Z01.20 [facility] [address] [place] [address] May, [facility] [address] [place] [address] Apr, Dental examination Z01.20 [facility] [address] [place] [address] Dec, Dental examination Z01.20 [facility] [address] [place] [address] Oct, Dental examination Z01.20 [facility] [address] [place] [address] Oct, Dental examination Z01.20 [facility] [address] [place] [address] Sep, Dental examination Z01.20 [facility] [address] [place] [address] Aug, Dental examination Z01.20 [facility] [address] [place] [address] Jul, Dental examination Z01.20 [facility] [address] [place] [address] Jul, Dental examination Z01.20 [facility] [address] [place] [address] Jun, Dental examination Z01.20 [facility] [address], [place] [address] 14 Dec, 2014 [facility] [address] [place] [address] 87284- 1833 Dec, [facility] [id number] [place] [address] 25054- 7169 Mar, [facility] [address] [place] [address] 50137- 4206 Mar, [facility] [id number] [place] [address] 22978- 3406 Mar, [facility] [address] [place] [address] 90244- 8978 Feb, [facility] [address], [place] [address] January, [facility] [address] [place] [address] January, IMMUNIZATIONS No Known Immunizations SOCIAL HISTORY Never Assessed REASON FOR VISIT RX clarification PLAN OF CARE VITAL SIGNS MEDICATIONS Unknown Medications RESULTS No Results PROCEDURES No Known procedures INSTRUCTIONS MEDICATIONS ADMINISTERED No Known Medications MEDICAL (GENERAL) HISTORY Type Description Date Medical History Mild High Blood Pressure Medical History Diabetes Type 2 Medical History Arthritis Surgical History umbilical hernia Hospitalization History Renal failure 02/2018 Hospitalization History Chest pain-[facility] 03/31/18
[2018-11-18 11:27] LABS: BASOPHILS # (AUTO) 0.1 10^3/uL (0.0-0.1); BASOPHILS % (AUTO) 0 % (0-10); EOSINOPHILS # (AUTO) 0.2 10^3/uL (0.0-0.3); EOSINOPHILS % (AUTO) 1 % (0-10); HEMATOCRIT 41 % (40-54); LYMPHOCYTES # (AUTO) 2.1 X 10^3 (1.0-4.0); LYMPHOCYTES % (AUTO) 18 % (12-44); MEAN CORPUSCULAR HEMOGLOBIN 29 PG (25-34); MEAN CORPUSCULAR HGB CONC 32 G/DL (32-36); MEAN CORPUSCULAR VOLUME 92 FL (80-99); MEAN PLATELET VOLUME 9.6 FL (7.4-10.4); MONOCYTES # (AUTO) 0.9 X 10^3 (0.0-1.0); MONOCYTES % (AUTO) 7 % (0-12); NEUTROPHILS # (AUTO) 8.4 X 10^3 (1.8-7.8); NEUTROPHILS % (AUTO) 73 % (42-75); PLATELET COUNT 239 10^3/uL (130-400); RED CELL DISTRIBUTION WIDTH 14.7 % (10.0-14.5); WHITE BLOOD COUNT 11.6 10^3/uL (4.3-11.0)
[2018-11-18] MEDS ORDERED: ASPIRIN 81 MG CHEW (CHILDREN'S ASA) PO ONE (11:30)
[2018-11-18 11:32] LABS: INR 1.1 (0.8-1.4); PROTHROMBIN TIME PATIENT 13.9 SEC (12.2-14.7)
--- NOTE | 2018-11-18 11:34 | ED Chest Pain ---
General Chief Complaint: Chest Pain Stated Complaint: CHEST PAIN, Nursing Triage Note: pt presents to ed with complaints of cp starting at 0900 this am while sitting in his recliner. pt also reports some soa and neck pain. pt states last he got some food stuck in his throat and has had some pain with eating since. Nursing Sepsis Screen: No Definite Risk Source: patient Exam Limitations: no limitations (MARILEE PRIDE MD) History of Present Illness Date Seen by Provider: Nov 18, 2018 Time Seen by Provider: 10:56 Initial Comments Patient is here with complaint of central chest pain that started at 9 AM this morning while he was at rest. States that it is a dull/sharp pain and has persisted since onset. States that he had food stuck in his throat last while eating at the [employer]. He was eating pork and it got stuck. He was able to get it down but since has had some pain in that area. He states that pain is much worse now and a little different. Is having some breathing problems. Pain radiates to the neck. Timing/Duration: 1-3 hours, constant Severity/Quality: moderate, dull, sharp Location: central Radiation: neck Activities at Onset: rest Prior CP/Workup: no prior cardiac workup (Patient refused heart catheter previously) ASA po [employer]O GLASS TECHNICIAN: No NTG SL AUTO GLASS TECHNICIAN: No Associated Symptoms: No abdominal pain, No back pain, No diaphoresis; fatigue; No nausea/vomiting; shortness of breath (MARILEE PRIDE MD) Allergies and Home Medications Allergies Coded Allergies: No Known Drug Allergies (Verified , 11/18/18) Home Medications Acetaminophen 650 Mg Tablet.er, 1,300 MG PO DAILY PRN for PAIN-MILD, (Reported) Albuterol Sulfate 2.5 Mg/3 Ml Vial.neb, 2.5 MG NEB TID PRN for SHORTNESS OF BREATH, (Reported) Apixaban 2.5 Mg Tablet, 2.5 MG PO BID, (Reported) Bumetanide 2 Mg Tablet, 2 MG PO DAILY PRN for SWELLING, (Reported) Calcitriol 0.25 Mcg Capsule, 0.25 MCG PO MoWeFr, (Reported) Clindamycin HCl 300 Mg Capsule, 300 MG PO Q8H, (Reported) 10 DAY SUPPLY FILLED 11-12-18 Glipizide 5 Mg Tablet, 5 MG PO BID, (Reported) Insulin Detemir 100 Unit/1 Ml Insuln.pen, 20 UNIT SQ BID, (Reported) Metoprolol Succinate 50 Mg Tab.er.24h, 50 MG PO DAILY, (Reported) Prednisone 5 Mg Tablet, 5 MG PO BID, (Reported) Tamsulosin HCl 0.4 Mg Cap.er.24h, 0.4 MG PO DAILY, (Reported) Patient Home Medication List Home Medication List Reviewed: Yes (MARILEE PRIDE MD) Review of Systems Review of Systems Constitutional: No chills, No diaphoresis, No fever EENTM: No Symptoms Reported Respiratory: See HPI, Shortness of Air, Wheezing Cardiovascular: Chest Pain; Denies Edema Gastrointestinal: See HPI Genitourinary: No Symptoms Reported Musculoskeletal: see HPI, muscle pain, neck pain Skin: no symptoms reported Endocrine: No Symptoms Reported (MARILEE PRIDE MD) All Other Systems Reviewed Negative Unless Noted: Yes (MARILEE PRIDE MD) Past Oytrhsu-Uwliqi-Epdvhd Hx Past Med/Social Hx: Reviewed Nursing Past Med/Soc Hx (MARILEE PRIDE MD) Patient Social History Alcohol Use: Denies Use Number of Drinks Today: AA Alcohol Beverage of Choice: Beer Recreational Drug Use: No Smoking Status: Former Smoker Type Used: Cigars, Cigarettes Former Smoker, Quit: Apr 01, 1978 Recent Foreign Travel: No Contact w/Someone Who Travel: No Recent Infectious Disease Expo: No Recent Hopitalizations: Yes Physical Abuse: No Sexual Abuse: No Mistreated: No Fear: No (MARILEE PRIDE MD) Immunizations Up To Date Date of Pneumonia Vaccine: Jun 22, 2014 Date of Influenza Vaccine: Jul 06, 2018 (MARILEE PRIDE MD) Seasonal Allergies Seasonal Allergies: No (MARILEE PRIDE MD) Past Medical History Surgeries: Yes (hernia, dialysis port in left arm, umbilical hernia repair, ) Coronary Stent, Orthopedic Respiratory: No Cardiac: Yes Hypertension Neurological: No Genitourinary: No (stopped dialysis 6 months ago) Benign Prostatic Hyperpl, Kidney Infection, Renal Failure, Dialysis Gastrointestinal: Yes Abdominal Hernia, Gastroesophageal Reflux Musculoskeletal: Yes Arthritis, Rheumatoid Arthritis Endocrine: Yes Diabetes, Non-Insulin dep HEENT: Yes Macular Degeneration Cancer: No Psychosocial: No Integumentary: Yes Psoriasis Blood Disorders: No Adverse Reaction/Blood Tranf: No (MARILEE PRIDE MD) Family Medical History Reviewed Nursing Family Hx (MARILEE PRIDE MD) Diabetes mellitus 19 MOTHER G8 BROTHER FH: pancreatic cancer 19 FATHER Diabetes (MARILEE PRIDE MD) Physical Exam Vital Signs Vital Signs - First Documented 11/18/18 11:00 Temp 96.4 Pulse 93 Resp 18 B/P (MAP) 196/95 (128) Pulse Ox 96 O2 Delivery Nasal Cannula O2 Flow Rate 2.0 (KEANU FERGUSON) Vital Signs Capillary Refill : Less Than 3 Seconds (MARILEE PRIDE MD) Height, Weight, BMI Height: 5'7.00" Weight: 200lbs. 5.0oz. 90.092611xi; 32.3 BMI Method:Stated General Appearance: WD/WN, Mild Distress HEENT: PERRL/EOMI, Pharynx Normal Neck: Normal Inspection, Non Tender, Supple Respiratory: Decreased Breath Sounds, Wheezing Cardiovascular: Regular Rate, Rhythm, No Murmur Gastrointestinal: Non Tender, Soft Extremity: Normal Inspection, Normal Range of Motion, Non Tender Neurologic/Psychiatric: Alert, Oriented x3, No Motor/Sensory Deficits Skin: Normal Color, Warm/Dry (MARILEE PIRDE MD) Progress/Results/Core Measures Results/Orders Lab Results Laboratory Tests Test 11/18/18 11:09 11/18/18 12:09 Range/Units White Blood Count 11.6 H 4.3-11.0 10^3/uL Red Blood Count 4.49 4.35-5.85 10^6/uL Hemoglobin 13.0 L 13.3-17.7 G/DL Hematocrit 41 40-54 % Mean Corpuscular Volume 92 80-99 FL Mean Corpuscular Hemoglobin 29 25-34 PG Mean Corpuscular Hemoglobin Concent 32 32-36 G/DL Red Cell Distribution Width 14.7 H 10.0-14.5 % Platelet Count 239 130-400 10^3/uL Mean Platelet Volume 9.6 7.4-10.4 FL Neutrophils (%) (Auto) 73 42-75 % Lymphocytes (%) (Auto) 18 12-44 % Monocytes (%) (Auto) 7 0-12 % Eosinophils (%) (Auto) 1 0-10 % Basophils (%) (Auto) 0 0-10 % Neutrophils # (Auto) 8.4 H 1.8-7.8 X 10^3 Lymphocytes # (Auto) 2.1 1.0-4.0 X 10^3 Monocytes # (Auto) 0.9 0.0-1.0 X 10^3 Eosinophils # (Auto) 0.2 0.0-0.3 10^3/uL Basophils # (Auto) 0.1 0.0-0.1 10^3/uL Prothrombin Time 13.9 12.2-14.7 SEC INR Comment 1.1 0.8-1.4 Activated Partial Thromboplast Time 29 24-35 SEC Sodium Level 136 135-145 MMOL/L Potassium Level 4.2 3.6-5.0 MMOL/L Chloride Level 101 98-107 MMOL/L Carbon Dioxide Level 22 21-32 MMOL/L Anion Gap 13 5-14 MMOL/L Blood Urea Nitrogen 60 H 7-18 MG/DL Creatinine 3.03 H 0.60-1.30 MG/DL Estimat Glomerular Filtration Rate 20 BUN/Creatinine Ratio 20 Glucose Level 421 *H 70-105 MG/DL Calcium Level 9.2 8.5-10.1 MG/DL Corrected Calcium 9.2 8.5-10.1 MG/DL Magnesium Level 2.2 1.8-2.4 MG/DL Total Bilirubin 0.6 0.1-1.0 MG/DL Aspartate Amino Transf (AST/SGOT) 16 5-34 U/L Alanine Aminotransferase (ALT/SGPT) 22 0-55 U/L Alkaline Phosphatase 110 40-136 U/L Myoglobin 102.0 H 10.0-92.0 NG/ML Troponin I < 0.028 <0.028 NG/ML B-Type Natriuretic Peptide 68.7 <100.0 PG/ML Total Protein 7.4 6.4-8.2 GM/DL Albumin 4.0 3.2-4.5 GM/DL Urine Color YELLOW Urine Clarity CLEAR Urine pH 5 5-9 Urine Specific Delong 1.010 L 1.016-1.022 Urine Protein NEGATIVE NEGATIVE Urine Glucose (UA) 4+ H NEGATIVE Urine Ketones NEGATIVE NEGATIVE Urine Nitrite NEGATIVE NEGATIVE Urine Bilirubin NEGATIVE NEGATIVE Urine Urobilinogen NORMAL NORMAL MG/DL Urine Leukocyte Esterase NEGATIVE NEGATIVE Urine RBC (Auto) NEGATIVE NEGATIVE Urine RBC NONE /HPF Urine WBC 0-2 /HPF Urine Squamous Epithelial Cells 2-5 /HPF Urine Crystals NONE /LPF Urine Bacteria NEGATIVE /HPF Urine Casts NONE /LPF Urine Mucus NEGATIVE /LPF Urine Culture Indicated NO (KEANU FERGUSON) My Orders (KEANU FERGUSON) Medications Given in ED Current Medications Medications Dose Ordered Sig/Adrienne Route Start Time Stop Time Status Last Admin Dose Admin Al Hydrox/Mg Hydrox/Simethicone 30 ml ONCE ONCE PO 11/18/18 11:45 11/18/18 11:46 DC 11/18/18 11:48 30 ML Albuterol/ Ipratropium 3 ml ONCE ONCE INH 11/18/18 11:45 11/18/18 11:46 DC 11/18/18 11:55 3 ML Aspirin 324 mg ONCE ONCE PO 11/18/18 11:30 11/18/18 11:31 DC 11/18/18 11:30 324 MG Lidocaine HCl 15 ml ONCE ONCE PO 11/18/18 11:45 11/18/18 11:46 DC 11/18/18 11:48 15 ML (KEANU FERGUSON) Vital Signs/I&O 11/18/18 11/18/18 11/18/18 11:00 11:00 11:57 Temp 96.4 Pulse 93 Resp 18 B/P (MAP) 196/95 (128) Pulse Ox 96 98 O2 Delivery Nasal Cannula Nasal Cannula O2 Flow Rate 2.0 2.00 (KEANU FERGUSON) Blood Pressure Mean: 128 Progress Progress Note : Progress Note Seen and evaluated. IV, labs, EKG and chest x-ray ordered. ASA 324 mg by mouth ordered. Duo neb and GI cocktail ordered. Monitor patient. 1135: Care transferred to Keanu Ferguson pending labs and completion of evaluation. (MARILEE PRIDE MD) Progress Note : Progress Note 1300: Dr. Clark was in the emergency room to see the patient. He would like him admitted for observation, echocardiogram today, and possible heart cath in the morning. 1355: The patient was informed of plans for admission and he agrees with plan of care. (KEANU FERGUSON) Initial ECG Impression Date: Nov 18, 2018 Initial ECG Impression Time: 10:56 Initial ECG Rate: 90 Initial ECG Rhythm: Normal Sinus Comment Say sinus rhythm with leftward axis. No evidence of ST elevation [place]. Similar to previous of 07/20/18. Interpreted by me. (MARILEE PRIDE MD) Diagnostic Imaging Diagonstic Imaging: Xray, CT Plain Films/CT/US/NM/MRI: chest Comments NAME: JEANMARIE CABRERA [facility] REC#: [id number] PT STATUS: REG ER : 1932 PHYSICIAN: MARILEE PRIDE MD ADMIT DATE: 11/18/18/ER Draft Date of Exam:11/18/18 CHEST 1 VIEW, AP/PA ONLY Portable erect AP chest at 1135 hours. INDICATION: Chest pain. FINDINGS: The heart size is within normal limits. As on the previous exam of 07/20/2018, there is shallow inspiration. Allowing for this technical factor, there does not seem to have been any significant change. There is still no evidence for failure, pneumonia or for pleural effusion to indicate an acute abnormality. The mediastinum is not widened. The osseous structures are intact. IMPRESSION: 1. There is no evidence for an acute cardiopulmonary abnormality on this suboptimal exam. 2. If clinical concern regarding an underlying abnormality persists, then followup PA and lateral chest would be recommended. Dictated on workstation # [id number] Dict: 11/18/18 1142 Trans: 11/18/18 1150 [id number] Interpreted by: CHRIS ACOSTA MD Electronically signed by: NAME: JEANMARIE CABRERA [facility] REC#: [id number] PT STATUS: REG ER : 1932 PHYSICIAN: MARILEE PRIDE MD ADMIT DATE: 11/18/18/ER Signed Date of Exam:11/18/18 CT CHEST WO PROCEDURE: CT chest without contrast. TECHNIQUE: Multiple contiguous axial images were obtained through the chest without the use of intravenous contrast. INDICATION: Chest pain which radiates into the jaw region. FINDINGS: There is slight dependent atelectasis and/or scarring in the lung bases. Lungs are otherwise clear. There is no evidence of significant pleural or pericardial fluid. There are probable minimal calcified granulomatous residua in the right lower lobe. Occasional subcentimeter mediastinal lymph nodes are noted without evidence of pathologic adenopathy in the nonenhanced images of the chest. Coronary artery calcifications are noted. There is an approximately 1.5 cm low-density focus in the posterior aspect of the left thyroid lobe. There is a punctate density in eliezer hepatis which could represent surgical clip, although the gallbladder is present. Possibility of stone and cystic duct is not excluded. IMPRESSION: 1. No acute abnormality is seen in the thorax, although there may be slight dependent atelectasis. 2. 1.5 cm left lobe thyroid gland nodule could be further assessed with ultrasonography. 3. There may be minimal calcification at the level of cystic duct without evidence of biliary ductal dilatation or gallbladder dilatation. Dictated by: Dictated on workstation # [id number] Dict: 11/18/18 1238 Trans: 11/18/18 1305 [facility] [id number] Interpreted by: NEFTALI NAVARRO MD Electronically signed by: NEFTALI NAVARRO MD 11/18/18 1305 Reviewed: Reviewed by Me (KEANU FERGUSON) Departure Communication (Admissions) Time/Spoke to Admitting Phy: 13:30 Dr. Wilde agrees to accept to her services. Time/Spoke to Consulting Phy: 13:00 Dr Clark (KEANU FERGUSON) Impression Primary Impression: Chest pain Additional Impression: Chronic kidney disease Disposition: ADMITTED INPATIENT Condition: Stable/Unchanged Admissions Decision to Admit Reason: Admit from ER (General) Decision to Admit/Date: Nov 18, 2018 Time/Decision to Admit Time: 13:55 (KEANU FERGUSON) Departure-Patient Inst. Referrals: ZECHARIAH ADAMS MD (PCP) Primary Care Physician MARILEE PRIDE MD Nov 18, 2018 11:34 KEANU FERGUSON Nov 18, 2018 13:00
[2018-11-18 11:41] LABS: ALANINE AMINOTRANSFERASE 22 U/L (0-55); ALKALINE PHOSPHATASE 110 U/L (40-136); BILIRUBIN,TOTAL 0.6 MG/DL (0.1-1.0); BUN/CREATININE RATIO 20; CALCIUM 9.2 MG/DL (8.5-10.1); CARBON DIOXIDE 22 MMOL/L (21-32); CHLORIDE 101 MMOL/L (98-107); CREATININE SERUM 3.03 MG/DL (0.60-1.30); GFR ESTIMATED 20; MAGNESIUM 2.2 MG/DL (1.8-2.4); POTASSIUM 4.2 MMOL/L (3.6-5.0); SODIUM 136 MMOL/L (135-145); TOTAL PROTEIN 7.4 GM/DL (6.4-8.2)
[2018-11-18] MEDS ORDERED: LIDOCAINE 2% VISCOUS 15 ML UDC PO ONE (11:45)
[2018-11-18] MEDS ORDERED: ANTACID SUSP 30 ML UDC (MYLANTA) PO ONE (11:45)
[2018-11-18] MEDS ORDERED: RT-ALBUTEROL/IPRATROPIUM 3 ML (DUONEB) VIAL INH ONE (11:45)
[2018-11-18 11:51] LABS: GLUCOSE 421 MG/DL (70-105)
--- NOTE | 2018-11-18 11:51 | Diagnostic Imaging Report ---
Portable erect AP chest at 1135 hours. INDICATION: Chest pain. FINDINGS: The heart size is within normal limits. As on the previous exam of 07/20/2018, there is shallow inspiration. Allowing for this technical factor, there does not seem to have been any significant change. There is still no evidence for failure, pneumonia or for pleural effusion to indicate an acute abnormality. The mediastinum is not widened. The osseous structures are intact. IMPRESSION: 1. There is no evidence for an acute cardiopulmonary abnormality on this suboptimal exam. 2. If clinical concern regarding an underlying abnormality persists, then followup PA and lateral chest would be recommended. Dictated by: Dictated on workstation # [id number]
[2018-11-18] MEDS ORDERED: inSUlin (REGULAR) HUMAN 1 UNIT/0.01 ML (CHARGE PER UNIT) SC STA (11:54)
[2018-11-18 12:16] LABS: BILIRUBIN,URINE NEGATIVE (NEGATIVE); CLARITY,URINE CLEAR; COLOR,URINE YELLOW; GLUCOSE, URINE (UA) 4+ (NEGATIVE); KETONES,URINE NEGATIVE (NEGATIVE); LEUKOCYTE ESTERASE ,URINE NEGATIVE (NEGATIVE); NITRITE,URINE NEGATIVE (NEGATIVE); PH,URINE 5 (5-9); PROTEIN,URINE NEGATIVE (NEGATIVE); UROBILINOGEN,URINE NORMAL (NORMAL)
[2018-11-18 12:22] LABS: BACTERIA,URINE NEGATIVE /HPF; WBC,URINE 0-2 /HPF
--- NOTE | 2018-11-18 12:52 | Diagnostic Imaging Report ---
PROCEDURE: CT chest without contrast. TECHNIQUE: Multiple contiguous axial images were obtained through the chest without the use of intravenous contrast. INDICATION: Chest pain which radiates into the jaw region. FINDINGS: There is slight dependent atelectasis and/or scarring in the lung bases. Lungs are otherwise clear. There is no evidence of significant pleural or pericardial fluid. There are probable minimal calcified granulomatous residua in the right lower lobe. Occasional subcentimeter mediastinal lymph nodes are noted without evidence of pathologic adenopathy in the nonenhanced images of the chest. Coronary artery calcifications are noted. There is an approximately 1.5 cm low-density focus in the posterior aspect of the left thyroid lobe. There is a punctate density in eliezer hepatis which could represent surgical clip, although the gallbladder is present. Possibility of stone and cystic duct is not excluded. IMPRESSION: 1. No acute abnormality is seen in the thorax, although there may be slight dependent atelectasis. 2. 1.5 cm left lobe thyroid gland nodule could be further assessed with ultrasonography. 3. There may be minimal calcification at the level of cystic duct without evidence of biliary ductal dilatation or gallbladder dilatation. Dictated by: Dictated on workstation # [id number]
[2018-11-18] MEDS ORDERED: morphine INJ 10 MG/ML 1ML (SYR OR VIAL) IVP ONE (13:15)
--- NOTE | 2018-11-18 13:30 | Consultation-Cardiology ---
HPI-Cardiology Cardiology Consultation: Date of Consultation 11/18/18 Date of Admission Attending Physician Admitting Physician Krzysztof Garcia MD Consulting Physician Abner CLARK MD HPI: Time Seen by a Provider: 13:00 Chief Complaint: Chest pain, shortness of breath. This is a 88-year-old gentleman who I see regularly in my office. He presents with a complaint of central chest pain since 9 a.m. which occurred at rest. Still continues. Radiates to the neck. Associated with shortness of breath. He has history of end-stage renal disease and was on dialysis. He has been taken off dialysis 4 days ago. He had an episode of paroxysmal atrial fibrillation and was started on Eliquis and flecainide at that point in time. He also has history of rheumatoid arthritis and takes prednisone. He has history of diabetes. He had a previous admission in [facility] for chest pain. Serial troponin were negative. EKG did not reveal any acute ST-T wave abnormalities. Coronary angiography was recommended however the patient refused. Review of Systems-Cardiology Review of Systems Constitutional: As described under HPI; No As described under HPI, No no symptoms reported, No chills, No fever, No lightheadedness Eyes: No As described under HPI, No no symptoms reported, No blindness, No blurred vision, No contact lenses, No drainage, No decreased acuity, No foreign body sensation, No pain, No vision change Ears/Nose/Throat: No As described under HPI, No no symptoms reported, No chronic hearing loss, No ear discharge, No ear pain, No nasal drainage, No ulcerations Respiratory: No no symptoms reported; As described under HPI; No As described under HPI, No cough, No orthopnea; shortness of breath; No SOB with excertion Cardiovascular: No no symptoms reported; As described under HPI; No As described under HPI; chest pain; No edema, No irregular heart rate, No lightheadedness, No palpitations Gastrointestinal: No no symptoms reported, No As described under HPI, No abdomen distended, No abdominal pain, No blood streaked bowels, No constipation , No diarrhea, No nausea, No vomiting, No stool coloration changes Genitourinary: No As described under HPI, No burning, No dysuria, No discharge , No frequency, No flank pain, No hematuria, No urgency Skin: No rash, No skin related problems, No ulcerations Psychiatric/Neurological: No anxiety, No depression, No seizure, No focal weakness, No syncope Hematologic: No bleeding abnormalities All Other Systems Reviewed Negative Unless Noted: Yes [id number] Hx Patient Social History Alcohol Use: Denies Use Recreational Drug Use: No Smoking Status: Former Smoker Type Used: Cigars, Cigarettes Recent Foreign Travel: No Recent Infectious Disease Expo: No Immunizations Up To Date Date of Pneumonia Vaccine: Jun 22, 2014 Date of Influenza Vaccine: Jul 06, 2018 Past Medical History PMH As described under Assessment. Family Medical History Family History: Diabetes mellitus 19 MOTHER G8 BROTHER FH: pancreatic cancer 19 FATHER Allergies and Home Medications Allergies Coded Allergies: No Known Drug Allergies (Unverified , 03/31/18) Home Medications Acetaminophen 325 Mg Tablet, 650 MG PO Q4H PRN for PAIN-MILD, (Reported) TAKES 2 (325MG) TABLETS Apixaban 2.5 Mg Tablet, 2.5 MG PO BID, (Reported) Bumetanide 2 Mg Tablet, 2 MG PO BID, (Reported) Calcitriol 0.25 Mcg Capsule, 0.25 MCG PO MoWeFr, (Reported) Ergocalciferol (Vitamin D2) 50,000 Unit Capsule, 50,000 UNIT PO Tu, (Reported) Glimepiride 4 Mg Tablet, 4 MG PO BID, (Reported) Insulin Determir 1,000 Units/10 Ml Soln, 20 UNITS SQ BID Prescribed by: VARSHA QUINONES on 07/24/18 1035 Metoprolol Succinate 50 Mg Tab.er.24h, 50 MG PO DAILY, (Reported) Prednisone 5 Mg Tablet, 5 MG PO BID, (Reported) Sulfamethoxazole/Trimethoprim 1 Each Tablet, 1 EACH PO DAILY Prescribed by: VARSHA QUINONES on 07/24/18 1035 Tamsulosin HCl 0.4 Mg Cap.er.24h, 0.4 MG PO DAILY, (Reported) Patient Home Medication List Home Medication List Reviewed: Yes Physical Exam-Cardiology Physical Exam Vital Signs/I&O 11/18/18 11/18/18 11/18/18 11/18/18 11:00 11:00 11:57 14:23 Temp 96.4 Pulse 93 80 Resp 18 16 B/P (MAP) 196/95 (128) 159/99 (119) Pulse Ox 96 98 97 O2 Delivery Nasal Cannula Nasal Cannula O2 Flow Rate 2.0 2.00 Capillary Refill : Less Than 3 Seconds Constitutional: appears stated age, AAO x 3; No apparent distress; well- developed, well-nourished HEENT: PERRL; No normal ENT inspection, No TMs normal, No pharynx normal, No scleral icterus (R), No scleral icterus (L), No pale conjunctivae (R), No pale conjunctivae (L), No photophobia, No TM abnormal (R), No TM abnormal (L), No pharyngeal erythema, No tonsillar exudate, No other, No discharge, No EOMI; hearing is well preserved; No hard of hearing; oral hygience is good; No ulceration, No xanthelasmas are seen Neck: No non-tender, No full range of motion, No supple, No normal inspection, No carotid bruit, No limited range of motion, No lymphadenopathy (R), No lymphadenopathy (L), No tender lateral, No tender midline, No thyromegaly, No other; carotid pulses are 2 + bilaterally; No with good upstrokes Respiratory: No accessory muscle use, No respiratory distress, No chest tender , No chest expansion is symmetric; chest is bilaterally symmetric; No lungs clear to percussion; lungs clear to auscultation; No crackles, No rhonchi, No rales, No stridor, No wheezing, No pleural rub, No other Cardiovascular: regular rate-rhythm; No irregularly irregular, No extra beats, No parasternal heave is noted, No JVD, No edema, No bradycardia, No tachycardia , No point of maximal impulse, No cardiac thrills are palpable; S1 and S2; No gallop/S3, No gallop/S4, No diastolic murmur, No systolic murmur, No friction rub, No click, No other Gastrointestinal: No tender, No soft, No round, No distended, No pulsatile mass , No organomegaly, No guarding, No rebound, No tenderness, No hernia, No mass, No audible bowel sounds, No abnormal bowel sounds, No abdominal bruits, No spleenomegaly, No other Rectal: deferred Extremities: No normal range of motion, No non-tender, No normal inspection, No pedal edema, No calf tenderness, No normal capillary refill, No pelvis stable , No calf tenderness, No inflammation, No pedal edema, No slow capillary refill , No swelling, No other, No abrasion, No clubbing, No cyanosis, No ecchymosis, No laceration, No no lower extremity edema bilateral, No significant edema, No tenderness, No wound Neurologic/Psychiatric: no motor/sensory deficits, alert, normal mood/affect, oriented x 3, power is 5/5 both on sides Skin: No normal color, No warm/dry, No cyanosis, No cool, No diaphoresis, No damp, No ecchymosis, No jaundice, No mottled, No pallor, No rash, No tattoos/ piercings, No ulcerations, No rash on exposed areas, No ulcerations on exposed areas, No other Data Review Labs Laboratory Tests 11/18/18 11:09: White Blood Count 11.6H, Red Blood Count 4.49, Hemoglobin 13.0L, Hematocrit 41, Mean Corpuscular Volume 92, Mean Corpuscular Hemoglobin 29, Mean Corpuscular Hemoglobin Concent 32, Red Cell Distribution Width 14.7H, Platelet Count 239, Mean Platelet Volume 9.6, Neutrophils (%) (Auto) 73, Lymphocytes (%) (Auto) 18, Monocytes (%) (Auto) 7, Eosinophils (%) (Auto) 1, Basophils (%) (Auto) 0, Neutrophils # (Auto) 8.4H, Lymphocytes # (Auto) 2.1, Monocytes # (Auto) 0.9, Eosinophils # (Auto) 0.2, Basophils # (Auto) 0.1, Prothrombin Time 13.9, INR Comment 1.1, Activated Partial Thromboplast Time 29, Sodium Level 136, Potassium Level 4.2, Chloride Level 101, Carbon Dioxide Level 22, Anion Gap 13, Blood Urea Nitrogen 60H, Creatinine 3.03H, Estimat Glomerular Filtration Rate 20 , BUN/Creatinine Ratio 20, Glucose Level 421*H, Calcium Level 9.2, Corrected Calcium 9.2, Magnesium Level 2.2, Total Bilirubin 0.6, Aspartate Amino Transf ( AST/SGOT) 16, Alanine Aminotransferase (ALT/SGPT) 22, Alkaline Phosphatase 110, Myoglobin 102.0H, Troponin I < 0.028, B-Type Natriuretic Peptide 68.7, Total Protein 7.4, Albumin 4.0 11/18/18 12:09: Urine Color YELLOW, Urine Clarity CLEAR, Urine pH 5, Urine Specific [place] 1.010L, Urine Protein NEGATIVE, Urine Glucose (UA) 4+H, Urine Ketones NEGATIVE, Urine Nitrite NEGATIVE, Urine Bilirubin NEGATIVE, Urine Urobilinogen NORMAL, Urine Leukocyte Esterase NEGATIVE, Urine RBC (Auto) NEGATIVE, Urine RBC NONE, Urine WBC 0-2, Urine Squamous Epithelial Cells 2-5, Urine Crystals NONE, Urine Bacteria NEGATIVE, Urine Casts NONE, Urine Mucus NEGATIVE, Urine Culture Indicated NO ECG Impression ECG Initial ECG Rhythm: Normal Sinus Initial ECG Impression: Nonspecific Changes A/P-Cardiology Assessment/Admission Diagnosis Unstable angina, Shortness of breath, Paroxysmal atrial fibrillation, Chronic kidney disease stage IV, Diabetes. Plan He has history of end-stage renal disease and was on dialysis, but has been taken off dialysis. He had an episode of paroxysmal atrial fibrillation and was started on Eliquis and flecainide at that point in time. He also has history of rheumatoid arthritis and takes prednisone. He has history of diabetes. He had a previous admission in [facility] for chest pain. Serial troponin were negative. EKG did not reveal any acute ST-T wave abnormalities. Coronary angiography was recommended however the patient refused. 1. Chest pain: Prolonged episode of chest pain. Patient has significant risk factors for CAD including diabetes and end-stage chronic kidney disease. This is likely unstable angina. Coronary angiography is recommended. All risk and complication were explained in detail. We'll schedule for tomorrow morning. Stress test was done in [facility] on 03/05/2018 which showed no inducible ischemia or infarction. Echocardiogram done on 03/04/2018 at [facility] showed mild concentric LVH with diastolic interventional septal diameter of 1.1 cm. EF 70 percent. No valvular heart disease. 2. Shortness of breath: Normal BNP. Unlikely to be significant congestive heart failure. We will repeat an echocardiogram. Peripheral edema. No significant crackles. Normal LV function on echocardiogram done on 03/04/2018 with mild concentric LVH.. Continue Bumex. 3. Paroxysmal atrial fibrillation: One episode of atrial fibrillation according to the history. Continue low dose Eliquis and metoprolol. Flecainide discontinued previously. 4. Hypertension: Continue metoprolol. Well controlled. 5. End-stage renal disease: Follows nephrology as an outpatient. Thank you for your consultation. Please call me if you have any questions. Mireille Clark MD, FACP, FACC, FSCAI, FHRS, CCDS Interventional Cardiology Cardiac Electrophysiology Vascular Medicine and Endovascular Interventions Clinical Quality Measures AMI/AHF: ASA po Prior to arrival: Abner Nolasco MD Nov 18, 2018 1:30 pm
--- OUTSIDE RECORDS SUMMARY | 2018-11-18 13:54 | XMS REPORT | Continuity of Care Document ---
Demographics x Preferred Language Unknown Marital Status Unknown Adventist Affiliation Unknown Race Unknown Ethnic Group Unknown Author Author [facility] Organization [facility] Address Unknown Phone Unavailable Allergies Active Description Code Type Severity Reaction Onset Reported/Identified Relationship to Patient Clinical Status Yes No known allergies Drug N/A N/A Yes No Known Medication Allergies Drug N/A N/A Yes No Known Drug Allergies [id number] N/A N/A Yes No Known Drug Allergies [id number] Drug Allergy Unknown N/A 03/31/2018 Medications There [...] site w/o org/sys involv 06/25/2016 W Z79.52 prison ( current) use of systemic steroids 06/25/2016 [...] Simon L08.89 abrasion, face, infected 09/29/2017 Simon Irene MD L98.9 Lesion of skin of face 09/29/2017 Anna ARTIS, Simon R55 Syncope and collapse 09/29/2017 Simon Irene MD T14.8xxA Other injury of unspecified body region, initial encounter 12/29/2017 Simon Irene MD J20.9 Bronchitis, acute with mild bronchospasm 02/23/2018 Simon Irene MD L02.93 Carbuncle 02/23/2018 Simon Irene MD R06.09 Dyspnea on exertion 02/23/2018 Simon Irene MD R07.89 Chest pain, atypical 02/23/2018 Simon Irene MD D64.9 Anemia 02/23/2018 Simon Irene MD I50.9 Heart failure 04/01/2018 KRISTA EPSTEIN MD, Ot D64.9 ANEMIA, UNSPECIFIED 04/01/2018 KRISTA EPSTEIN MD Ot 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 04/01/2018 KRISTA EPSTEIN MD Ot I12.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 04/01/2018 KRISTA EPSTEIN MD, Ot 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, UNSPECIFIED 04/01/2018 KRISTA EPSTEIN MD Ot N18.6 END STAGE RENAL DISEASE 04/01/2018 KRISTA EPSTEIN MD Ot R07.2 PRECORDIAL PAIN 04/01/2018 KRISTA EPSTEIN MD Ot R94.8 ABNORMAL RESULTS OF FUNCTION STUDIES OF 04/01/2018 KRISTA EPSTEIN MD, Ot Z79.4 USP (CURRENT) USE OF INSULIN 04/01/2018 KRISTA EPSTEIN MD Ot Z79.899 OTHER TOUCHER UP (CURRENT) DRUG THERAPY 04/01/2018 KRISTA EPSTEIN MD, Ot Z87.891 PERSONAL HISTORY OF NICOTINE DEPENDENCE 04/01/2018 KRISTA EPSTEIN MD Ot Z99.2 DEPENDENCE ON RENAL DIALYSIS 04/01/2018 KRISTA EPSTEIN MD, Ot D64.9 ANEMIA, UNSPECIFIED 04/01/2018 KRISTA EPSTEIN MD Ot 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 04/01/2018 KRISTA EPSTEIN MD Ot I12.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 04/01/2018 KRISTA EPSTEIN MD Ot 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, UNSPECIFIED 04/01/2018 KRISTA EPSTEIN MD Ot N18.6 END STAGE RENAL DISEASE 04/01/2018 KRISTA EPSTEIN MD Ot R07.2 PRECORDIAL PAIN 04/01/2018 KRISTA EPSTEIN MD Ot R94.8 ABNORMAL RESULTS OF FUNCTION STUDIES OF 04/01/2018 KRISTA EPSTEIN MD Ot Z79.4 USP (CURRENT) USE OF INSULIN 04/01/2018 KRISTA EPSTEIN MD Ot Z79.899 OTHER USP (CURRENT) DRUG THERAPY 04/01/2018 KRISTA EPSTEIN MD Ot Z87.891 PERSONAL HISTORY OF NICOTINE DEPENDENCE 04/01/2018 KRISTA EPSTEIN MD Ot Z99.2 DEPENDENCE ON RENAL DIALYSIS 04/03/2018 KRISTA EPSTEIN MD Ot D64.9 ANEMIA, UNSPECIFIED 04/03/2018 KRISTA EPSTEIN MD Ot 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 04/03/2018 KRISTA EPSTEIN MD Ot I12.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 04/03/2018 KRISTA EPSTEIN MD Ot 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, UNSPECIFIED 04/03/2018 KRISTA EPSTEIN MD Ot N18.6 END STAGE RENAL DISEASE 04/03/2018 KRISTA EPSTEIN MD Ot R07.2 PRECORDIAL PAIN 04/03/2018 KRISTA EPSTEIN MD Ot R94.8 ABNORMAL RESULTS OF FUNCTION STUDIES OF 04/03/2018 KRISTA EPSTEIN MD Ot Z79.4 USP (CURRENT) USE OF INSULIN 04/03/2018 KRISTA EPSTEIN MD Ot Z79.899 OTHER USP (CURRENT) DRUG THERAPY 04/03/2018 KRISTA EPSTEIN MD Ot Z87.891 PERSONAL HISTORY OF NICOTINE DEPENDENCE 04/03/2018 KRISTA EPSTEIN MD Ot Z99.2 DEPENDENCE ON RENAL DIALYSIS 04/13/2018 ZECHARIAH ADAMS MD Ot N18.9 CHRONIC KIDNEY DISEASE, UNSPECIFIED 05/04/2018 P [id number] Other difficulties with micturition 05/07/2018 P [id number] Other difficulties with micturition 07/20/2018 ZECHARIAH ADAMS MD Ot N18.9 CHRONIC KIDNEY DISEASE, UNSPECIFIED 07/23/2018 JAYE SMITH JACKELINE Ot A41.9 SEPSIS, UNSPECIFIED ORGANISM 07/23/2018 JAYE SMITH JCAKELINE Ot E11.9 TYPE 2 DIABETES MELLITUS WITHOUT COMPLIC 07/23/2018 JAYE SMITH JACKELINE Ot H35.30 UNSPECIFIED MACULAR DEGENERATION 07/23/2018 JAYE SMITH JACKELINE Ot I12.9 HYPERTENSIVE CHRONIC KIDNEY DISEASE W ST 07/23/2018 JAYE SMITH JACKELINE Ot I48.0 PAROXYSMAL ATRIAL FIBRILLATION 07/23/2018 CARLOS CEE DOI Ot J10.89 INFLUENZA DUE TO OT IDENT INFLUENZA VIR 07/23/2018 JAYE SMITH JACKELINE Ot K21.9 GASTRO-ESOPHAGEAL REFLUX DISEASE WITHOUT 07/23/2018 JAYE DO JACKELINE Ot L02.413 CUTANEOUS ABSCESS OF RIGHT UPPER LIMB 07/23/2018 JAYE SMITH JACKELINE Ot L40.9 PSORIASIS, UNSPECIFIED 07/23/2018 JAYE SMITH JACKELINE Ot 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, UNSPECIFIED 07/23/2018 JAYE SMITH JACKELINE Ot M19.91 PRIMARY OSTEOARTHRITIS, UNSPECIFIED SITE 07/23/2018 JAYE SMITH JACKELINE Ot M79.10 MYALGIA, UNSPECIFIED SITE 07/23/2018 JAYE SMITH JACKELINE Ot N18.9 CHRONIC KIDNEY DISEASE, UNSPECIFIED 07/23/2018 JAYE SMITH JACKELINE Ot N39.0 URINARY TRACT INFECTION, SITE NOT SPECIF 07/23/2018 JAYE SMITH JACKELINE Ot N40.1 BENIGN PROSTATIC HYPERPLASIA WITH LOWER 07/23/2018 JAYE SMITH JACKELINE Ot R68.83 CHILLS (WITHOUT FEVER) 07/23/2018 CARLOS CEE DOI Ot Z79.84 TOUCHER UP (CURRENT) USE OF ORAL HYPOGLYC 07/23/2018 JAYE SMITH JACKELINE Ot Z87.891 PERSONAL HISTORY OF NICOTINE DEPENDENCE 07/24/2018 JAYE SMITH JACKELINE Ot A41.9 SEPSIS, UNSPECIFIED ORGANISM 07/24/2018 JAYE SMITH JACKELINE Ot E11.9 TYPE 2 DIABETES MELLITUS WITHOUT COMPLIC 07/24/2018 JAYE SMITH JACKELINE Ot H35.30 UNSPECIFIED MACULAR DEGENERATION 07/24/2018 JAYE SMITH JACKELINE Ot I12.9 HYPERTENSIVE CHRONIC KIDNEY DISEASE W ST 07/24/2018 JAYE SMITH JACKELINE Ot I48.0 PAROXYSMAL ATRIAL FIBRILLATION 07/24/2018 JACKELINE CEE DO Ot J10.89 INFLUENZA DUE TO OT IDENT INFLUENZA VIR 07/24/2018 JACKELINE CEE DO Ot K21.9 GASTRO-ESOPHAGEAL REFLUX DISEASE WITHOUT 07/24/2018 JACKELINE CEE DO Ot L02.413 CUTANEOUS ABSCESS OF RIGHT UPPER LIMB 07/24/2018 JACKELINE CEE DO Ot L40.9 PSORIASIS, UNSPECIFIED 07/24/2018 JACKELINE CEE DO Ot 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, UNSPECIFIED 07/24/2018 JACKELINE CEE DO Ot M19.91 PRIMARY OSTEOARTHRITIS, UNSPECIFIED SITE 07/24/2018 JACKELINE CEE DO Ot M79.10 MYALGIA, UNSPECIFIED SITE 07/24/2018 JACKELINE CEE DO Ot N18.9 CHRONIC KIDNEY DISEASE, UNSPECIFIED 07/24/2018 JACKELINE CEE DO Ot N39.0 URINARY TRACT INFECTION, SITE NOT SPECIF 07/24/2018 JACKELINE CEE DO Ot N40.1 BENIGN PROSTATIC HYPERPLASIA WITH LOWER 07/24/2018 JACKELINE CEE DO Ot R68.83 CHILLS (WITHOUT FEVER) 07/24/2018 JACKELINE CEE DO Ot Z79.84 TOUCHER UP (CURRENT) USE OF ORAL HYPOGLYC 07/24/2018 JACKELINE CEE DO Ot Z87.891 PERSONAL HISTORY OF NICOTINE DEPENDENCE 07/24/2018 JACKELINE CEE DO Ot A41.4 SEPSIS DUE TO ANAEROBES 07/24/2018 JACKELINE CEE DO Ot A41.9 SEPSIS, UNSPECIFIED ORGANISM 07/24/2018 JACKELINE CEE DO Ot B95.7 OT STAPHYLOCOCCUS THE CAUSE OF DISEA 07/24/2018 JACKELINE CEE DO Ot B96.89 OTH BACTERIAL AGENTS THE CAUSE OF DIS 07/24/2018 JACKELINE CEE DO Ot D72.823 LEUKEMOID REACTION 07/24/2018 JACKELINE CEE DO Ot E11.9 TYPE 2 DIABETES MELLITUS WITHOUT COMPLIC 07/24/2018 JACKELINE CEE DO Ot E87.1 HYPO-OSMOLALITY AND HYPONATREMIA 07/24/2018 JACKELINE CEE DO Ot E87.2 ACIDOSIS 07/24/2018 JACKELINE CEE DO Ot E87.6 HYPOKALEMIA 07/24/2018 JACKELINE CEE DO Ot H35.30 UNSPECIFIED MACULAR DEGENERATION 07/24/2018 JACKELINE CEE DO Ot I12.9 HYPERTENSIVE CHRONIC KIDNEY DISEASE W ST 07/24/2018 JACKELINE CEE DO Ot I48.0 PAROXYSMAL ATRIAL FIBRILLATION 07/24/2018 JACKELINE CEE DO Ot J10.89 INFLUENZA DUE TO OT IDENT INFLUENZA VIR 07/24/2018 CARLOS CEE DOI Ot K21.9 GASTRO-ESOPHAGEAL REFLUX DISEASE WITHOUT 07/24/2018 JACKELINE CEE DO Ot L02.413 CUTANEOUS ABSCESS OF RIGHT UPPER LIMB 07/24/2018 CARLOS CEE DOI Ot L03.113 CELLULITIS OF RIGHT UPPER LIMB 07/24/2018 JAYE SMITH JACKELINE Ot L40.9 PSORIASIS, UNSPECIFIED 07/24/2018 CARLOS CEE DOI Ot 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, UNSPECIFIED 07/24/2018 JAYE SMITH JACKELINE Ot M19.91 PRIMARY OSTEOARTHRITIS, UNSPECIFIED SITE 07/24/2018 JACKELINE CEE DO Ot M79.10 MYALGIA, UNSPECIFIED SITE 07/24/2018 CARLOS CEE DOI Ot N17.9 ACUTE KIDNEY FAILURE, UNSPECIFIED 07/24/2018 JAYE SMITH JACKELINE Ot N18.4 CHRONIC KIDNEY DISEASE, STAGE 4 (SEVERE) 07/24/2018 JACKELINE CEE DO Ot N39.0 URINARY TRACT INFECTION, SITE NOT SPECIF 07/24/2018 CARLOS CEE DOI Ot N39.41 URGE INCONTINENCE 07/24/2018 CARLOS CEE DOI Ot N40.1 BENIGN PROSTATIC HYPERPLASIA WITH LOWER 07/24/2018 CARLOS CEE DOI Ot R07.1 CHEST PAIN ON BREATHING 07/24/2018 JACKELINE CEE DO Ot R30.0 DYSURIA 07/24/2018 JAYE SMITH JACKELINE Ot R68.83 CHILLS (WITHOUT FEVER) 07/24/2018 JACKELINE CEE DO Ot Z79.84 TOUCHER UP (CURRENT) USE OF ORAL HYPOGLYC 07/24/2018 JACKELINE CEE DO Ot Z87.891 PERSONAL HISTORY OF NICOTINE DEPENDENCE Procedures Code Description Per[place] By [place]formed On D0140 LIMIT ORAL EVAL PROBLM FOCUS 02/15/2014 D0220 INTRAORAL PERIAPICAL FIRST F 02/15/2014 D7140 EXTRACTION ERUPTED TOOTH/ EXR 02/15/2014 D7140 EXTRACTION ERUPTED TOOTH/ EXR 04/06/2014 41610 JOINT SURVEY SINGLE VIEW 11/07/2015 76550 OFFICE/OUTPATIENT VISIT NEW 11/07/2015 16299 X-RAY EXAM OF ELBOW 11/14/2015 74482 OFFICE/OUTPATIENT VISIT EST 02/20/2016 53283 FIBRIN DEGRADATION, QUANT 02/26/2016 60809 LUNG PERFUSION IMAGING 02/27/2016 A9540 TC 99M [...] 06/25/18 10:10 CULTURE, URINE, ROUTINE SEE NOTE [facility] Influenza virus A and B antigen detection - 07/20/18 09:28 CALL POSITIVES (F1 HELP) CALLED TO NICK AT [address] [facility] FLU RESULT POSITIVE FOR INFLUENZA B ANTIGEN, NEG FOR A ANTIGEN, BY IA [facility] Complete blood count (CBC) with automated white [...] NRG Blood erythrocyte morphology finding identification NORMAL [facility] Comprehensive metabolic panel - 07/20/18 09:49 Serum [...] <=0.05 miu/l (units/ volume) 3.24 u[iU]/mL 0.35-4.94 Gram stain microscopy - 07/20/18 09:49 Gram stain microscopy Moderate Gram positive cocci in clusters NRG Bacteria identification in wound by culture - 07/20/18 09:49 Bacteria identification in wound by culture [id number] NRG FREE TEXT EXTERNAL RML PHONED MRSA REPORT 07/22 11:36 NRG QUANTITY OF GROWTH FEW NRG FREE TEXT ENTRY 2 RML SENT SENSITIVITY REPORT 07/22 12:05 NR RML Sensitivity Panel - 07/20/18 09:49 Oxacillin susceptibility test by minimum inhibitory concentration R NRG Clindamycin susceptibility test by minimum inhibitory concentration <= NRG Erythromycin susceptibility test by minimum inhibitory concentration > NRG Trimethoprim/sulfamethoxazole susceptibility test by minimum inhibitoryconcentration S NRG Vancomycin susceptibility test by minimum inhibitory concentration 1 NRG Levofloxacin susceptibility test by minimum inhibitory concentration <= NRG Rifampin susceptibility test by minimum inhibitory concentration <= NRG Cefazolin susceptibility test by minimum inhibitory concentration > NRG Linezolid susceptibility test by minimum inhibitory concentration < = NRG Penicillin G susceptibility test by minimum inhibitory concentration > NRG Moxifloxacin susceptibility test by minimum inhibitory concentration S NRG Minocycline susc HUMBLE <= NRG Bacterial blood culture - 07/20/18 09:50 FREE TEXT EXTERNAL CITROBACTER FREUNDII COMPLEX NRG QUANTITY OF GROWTH Isolated NRG Bacterial blood culture [id number] NR FREE TEXT ENTRY 2 ID REPORTED 07/22/18 15:05 NRG FREE TEXT ENTRY 3 SENSITIVITY REPORTED 07/23/18 09:05 NRG RML SENSITIVITY MAIN LAB - 07/20/18 09:50 Gentamicin susceptibility test by minimum inhibitory concentration < = NRG Trimethoprim/sulfamethoxazole susceptibility test by minimum inhibitoryconcentration S NRG Levofloxacin susceptibility test by minimum inhibitory concentration <= NRG Ampicillin susceptibility test by minimum inhibitory concentration R NRG Cefazolin susceptibility test by minimum inhibitory concentration R NRG Ceftriaxone susceptibility test by minimum inhibitory concentration <= NRG Piperacillin/tazobactam susceptibility test by minimum inhibitory concentration S NRG Ciprofloxacin susceptibility test by minimum inhibitory concentration <= NRG Meropenem susceptibility test by minimum inhibitory concentration < = NRG Amoxicillin and clavulanate potassium susc HUMBLE R NRG Imipenem susceptibility test by minimum inhibitory concentration S NRG Bacterial blood culture - 07/20/18 10:10 Bacterial blood culture NG NRG Complete urinalysis with reflex to culture - [...] urinalysis with reflex to culture NO NRG Bacterial urine culture - 07/20/18 10:52 Bacterial urine culture SEE COMMEN NRG COLONY COUNT . NRG FTX;REPORTABLE ID REPORTED 07/21/18 16:05 NRG FREE TEXT ENTRY 2 RML SENT SENSITIVITY REPORT 07/22 09:05 NRG RML Sensitivity Panel - 07/20/18 10:52 Gentamicin susceptibility test by minimum inhibitory concentration < = NRG Trimethoprim/sulfamethoxazole susceptibility test by minimum inhibitoryconcentration S NRG Levofloxacin susceptibility test by minimum inhibitory concentration <= NRG Ampicillin susceptibility test by minimum inhibitory concentration R NRG Cefazolin susceptibility test by minimum inhibitory concentration R NRG Ceftriaxone susceptibility test by minimum inhibitory concentration <= NRG Ciprofloxacin susceptibility test by minimum inhibitory concentration <= NRG Meropenem susceptibility test by minimum inhibitory concentration < = NRG Nitrofurantoin susceptibility test by minimum inhibitory concentration <= NRG Amoxicillin and clavulanate potassium susc HUMBLE R NRG Serum or plasma lactate measurement (moles/volume) - 07/20/18 11:48 Serum or plasma lactate measurement (moles/volume) 0.96 mmol/L 0.50-2.00 Capillary blood glucose measurement by glucometer (mass/volume) - 07/20/18 16: 44 Capillary blood glucose measurement by glucometer (mass/volume) 296 mg/dL 70-110 Capillary blood glucose measurement by glucometer (mass/volume) - 07/20/18 21: 04 Capillary blood glucose measurement by glucometer (mass/volume) 276 mg/dL 70-110 Complete blood count (CBC) with automated white blood cell (WBC) differential - 07/21/18 08:55 Blood leukocytes automated count (number/volume) 12.3 10*3/uL 4.3-11.0 Blood erythrocytes automated count (number/volume) 3.72 10*6/uL 4.35-5.85 Venous blood hemoglobin measurement (mass/volume) 10.9 g/dL 13.3-17.7 Blood hematocrit (volume fraction) 33 % 40-54 Automated erythrocyte mean corpuscular volume 90 [foz_us] 80-99 Automated erythrocyte mean corpuscular hemoglobin (mass per erythrocyte) 29 pg 25-34 Automated erythrocyte mean corpuscular hemoglobin concentration measurement ( mass/volume) 33 g/dL 32-36 Automated erythrocyte distribution width ratio 14.6 % 10.0-14.5 Automated blood platelet count (count/volume) 169 10*3/uL 130-400 Automated blood platelet mean volume measurement 9.7 [foz_us] 7.4-10.4 Automated blood neutrophils/100 leukocytes 85 % 42-75 Automated blood lymphocytes/100 leukocytes 10 % 12-44 Blood monocytes/100 leukocytes 5 % 0-12 Automated blood eosinophils/100 leukocytes 1 % 0-10 Automated blood basophils/100 leukocytes 0 % 0-10 Blood neutrophils automated count (number/volume) 10.4 10*3 1.8-7.8 Blood lymphocytes automated count (number/volume) 1.2 10*3 1.0-4.0 Blood monocytes automated count (number/volume) 0.6 10*3 0.0-1.0 Automated eosinophil count 0.1 10*3/uL 0.0-0.3 Automated blood basophil count (count/volume) 0.0 10*3/uL 0.0-0.1 Comprehensive metabolic panel - 07/21/18 08:55 Serum or plasma sodium measurement (moles/volume) 134 mmol/L 135-145 Serum or plasma potassium measurement (moles/volume) 3.4 mmol/L 3.6-5.0 Serum or plasma chloride measurement (moles/volume) 99 mmol/L 98-107 Carbon dioxide 22 mmol/L 21-32 Serum or plasma anion gap determination (moles/volume) 13 mmol/L 5-14 Serum or plasma urea nitrogen measurement (mass/volume) 63 mg/dL 7-18 Serum or plasma creatinine measurement (mass/volume) 2.91 mg/dL 0.60-1.30 Serum or plasma urea nitrogen/creatinine mass ratio 22 NRG Serum or plasma creatinine measurement with calculation of estimated glomerular filtration rate 21 NRG Serum or plasma glucose measurement (mass/volume) 280 mg/dL 70-105 Serum or plasma calcium measurement (mass/volume) 8.9 mg/dL 8.5-10.1 Serum or plasma total bilirubin measurement (mass/volume) 1.2 mg/dL 0.1-1.0 Serum or plasma alkaline phosphatase measurement (enzymatic activity/volume) 65 U/L 40-136 Serum or plasma aspartate aminotransferase measurement (enzymatic activity/ volume) 15 U/L 5-34 Serum or plasma alanine aminotransferase measurement (enzymatic activity/volume ) 12 U/L 0-55 Serum or plasma protein measurement (mass/volume) 6.4 g/dL 6.4-8.2 Serum or plasma albumin measurement (mass/volume) 3.4 g/dL 3.2-4.5 CALCIUM CORRECTED 9.4 mg/dL 8.5-10.1 Capillary blood glucose measurement by glucometer (mass/volume) - 07/21/18 11: 05 Capillary blood glucose measurement by glucometer (mass/volume) 268 mg/dL 70-110 Vancomycin trough - 07/21/18 12:20 Vancomycin trough 13.6 ug/mL 10.0-20.0 Capillary blood glucose measurement by glucometer (mass/volume) - 07/21/18 15: 50 Capillary blood glucose measurement by glucometer (mass/volume) 290 mg/dL 70-110 Capillary blood glucose measurement by glucometer (mass/volume) - 07/21/18 19: 53 Capillary blood glucose measurement by glucometer (mass/volume) 248 mg/dL 70-110 Capillary blood glucose measurement by glucometer (mass/volume) - 07/22/18 05: 28 Capillary blood glucose measurement by glucometer (mass/volume) 321 mg/dL 70-110 Complete blood count (CBC) with automated white blood cell (WBC) differential - 07/22/18 05:35 Blood leukocytes automated count (number/volume) 9.4 10*3/uL 4.3-11.0 Blood erythrocytes automated count (number/volume) 3.60 10*6/uL 4.35-5.85 Venous blood hemoglobin measurement (mass/volume) 10.4 g/dL 13.3-17.7 Blood hematocrit (volume fraction) 33 % 40-54 Automated erythrocyte mean corpuscular volume 91 [foz_us] 80-99 Automated erythrocyte mean corpuscular hemoglobin (mass per erythrocyte) 29 pg 25-34 Automated erythrocyte mean corpuscular hemoglobin concentration measurement ( mass/volume) 32 g/dL 32-36 Automated erythrocyte distribution width ratio 14.1 % 10.0-14.5 Automated blood platelet count (count/volume) 175 10*3/uL 130-400 Automated blood platelet mean volume measurement 10.4 [foz_us] 7.4-10.4 Automated blood neutrophils/100 leukocytes 79 % 42-75 Automated blood lymphocytes/100 leukocytes 12 % 12-44 Blood monocytes/100 leukocytes 8 % 0-12 Automated blood eosinophils/100 leukocytes 1 % 0-10 Automated blood basophils/100 leukocytes 0 % 0-10 Blood neutrophils automated count (number/volume) 7.5 10*3 1.8-7.8 Blood lymphocytes automated count (number/volume) 1.1 10*3 1.0-4.0 Blood monocytes automated count (number/volume) 0.7 10*3 0.0-1.0 Automated eosinophil count 0.1 10*3/uL 0.0-0.3 Automated blood basophil count (count/volume) 0.0 10*3/uL 0.0-0.1 Comprehensive metabolic panel - 07/22/18 05:35 Serum or plasma sodium measurement (moles/volume) 137 mmol/L 135-145 Serum or plasma potassium measurement (moles/volume) 3.7 mmol/L 3.6-5.0 Serum or plasma chloride measurement (moles/volume) 105 mmol/L 98-107 Carbon dioxide 19 mmol/L 21-32 Serum or plasma anion gap determination (moles/volume) 13 mmol/L 5-14 Serum or plasma urea nitrogen measurement (mass/volume) 57 mg/dL 7-18 Serum or plasma creatinine measurement (mass/volume) 2.61 mg/dL 0.60-1.30 Serum or plasma urea nitrogen/creatinine mass ratio 22 NRG Serum or plasma creatinine measurement with calculation of estimated glomerular filtration rate 23 NRG Serum or plasma glucose measurement (mass/volume) 327 mg/dL 70-105 Serum or plasma calcium measurement (mass/volume) 8.9 mg/dL 8.5-10.1 Serum or plasma total bilirubin measurement (mass/volume) 0.5 mg/dL 0.1-1.0 Serum or plasma alkaline phosphatase measurement (enzymatic activity/volume) 81 U/L 40-136 Serum or plasma aspartate aminotransferase measurement (enzymatic activity/ volume) 15 U/L 5-34 Serum or plasma alanine aminotransferase measurement (enzymatic activity/volume ) 15 U/L 0-55 Serum or plasma protein measurement (mass/volume) 5.7 g/dL 6.4-8.2 Serum or plasma albumin measurement (mass/volume) 3.1 g/dL 3.2-4.5 CALCIUM CORRECTED 9.6 mg/dL 8.5-10.1 Capillary blood glucose measurement by glucometer (mass/volume) - 07/22/18 11: 31 Capillary blood glucose measurement by glucometer (mass/volume) 238 mg/dL 70-110 Capillary blood glucose measurement by glucometer (mass/volume) - 07/22/18 15: 57 Capillary blood glucose measurement by glucometer (mass/volume) 374 mg/dL 70-110 Capillary blood glucose measurement by glucometer (mass/volume) - 07/22/18 20: 11 Capillary blood glucose measurement by glucometer (mass/volume) 341 mg/dL 70-110 Capillary blood glucose measurement by glucometer (mass/volume) - 07/23/18 05: 28 Capillary blood glucose measurement by glucometer (mass/volume) 185 mg/dL 70-110 Whole blood basic metabolic panel - 07/23/18 05:55 Serum or plasma sodium measurement (moles/volume) 140 mmol/L 135-145 Serum or plasma potassium measurement (moles/volume) 3.8 mmol/L 3.6-5.0 Serum or plasma chloride measurement (moles/volume) 105 mmol/L 98-107 Carbon dioxide 22 mmol/L 21-32 Serum or plasma anion gap determination (moles/volume) 13 mmol/L 5-14 Serum or plasma urea nitrogen measurement (mass/volume) 58 mg/dL 7-18 Serum or plasma creatinine measurement (mass/volume) 2.54 mg/dL 0.60-1.30 Serum or plasma urea nitrogen/creatinine mass ratio 23 NRG Serum or plasma creatinine measurement with calculation of estimated glomerular filtration rate 24 NRG Serum or plasma glucose measurement (mass/volume) 189 mg/dL 70-105 Serum or plasma calcium measurement (mass/volume) 9.1 mg/dL 8.5-10.1 Capillary blood glucose measurement by glucometer (mass/volume) - 07/23/18 08: 41 Capillary blood glucose measurement by glucometer (mass/volume) 164 mg/dL 70-110 Vancomycin trough - 07/23/18 12:41 Vancomycin trough 21.8 ug/mL 10.0-20.0 Capillary blood glucose measurement by glucometer (mass/volume) - 07/23/18 14: 31 Capillary blood glucose measurement by glucometer (mass/volume) 365 mg/dL 70-110 Capillary blood glucose measurement by glucometer (mass/volume) - 07/23/18 16: 30 Capillary blood glucose measurement by glucometer (mass/volume) 299 mg/dL 70-110 Capillary blood glucose measurement by glucometer (mass/volume) - 07/23/18 21: 39 Capillary blood glucose measurement by glucometer (mass/volume) 317 mg/dL 70-110 Capillary blood glucose measurement by glucometer (mass/volume) - 07/24/18 05: 13 Capillary blood glucose measurement by glucometer (mass/volume) 223 mg/dL 70-110 Capillary blood glucose measurement by glucometer (mass/volume) - 07/24/18 10: 34 Capillary blood glucose measurement by glucometer (mass/volume) 276 mg/dL 70-110 Complete blood count (CBC) with automated white blood cell (WBC) differential - 11/18/18 11:09 Blood leukocytes automated count (number/volume) 11.6 10*3/uL 4.3-11.0 Blood erythrocytes automated count (number/volume) 4.49 10*6/uL 4.35-5.85 Venous blood hemoglobin measurement (mass/volume) 13.0 g/dL 13.3-17.7 Blood hematocrit (volume fraction) 41 % 40-54 Automated erythrocyte mean corpuscular volume 92 [foz_us] 80-99 Automated erythrocyte mean corpuscular hemoglobin (mass per erythrocyte) 29 pg 25-34 Automated erythrocyte mean corpuscular hemoglobin concentration measurement ( mass/volume) 32 g/dL 32-36 Automated erythrocyte distribution width ratio 14.7 % 10.0-14.5 Automated blood platelet count (count/volume) 239 10*3/uL 130-400 Automated blood platelet mean volume measurement 9.6 [foz_us] 7.4-10.4 Automated blood neutrophils/100 leukocytes 73 % 42-75 Automated blood lymphocytes/100 leukocytes 18 % 12-44 Blood monocytes/100 leukocytes 7 % 0-12 Automated blood eosinophils/100 leukocytes 1 % 0-10 Automated blood basophils/100 leukocytes 0 % 0-10 Blood neutrophils automated count (number/volume) 8.4 10*3 1.8-7.8 Blood lymphocytes automated count (number/volume) 2.1 10*3 1.0-4.0 Blood monocytes automated count (number/volume) 0.9 10*3 0.0-1.0 Automated eosinophil count 0.2 10*3/uL 0.0-0.3 Automated blood basophil count (count/volume) 0.1 10*3/uL 0.0-0.1 PT panel in platelet poor plasma by coagulation assay - 11/18/18 11:09 Prothrombin time (PT) in platelet poor plasma by coagulation assay 13.9 s 12.2-14.7 INR in platelet poor plasma or blood by coagulation assay 1.1 0.8-1.4 Activated partial thromboplastin time (aPTT) in platelet poor plasma bycoagulation assay - 11/18/18 11:09 Activated partial thromboplastin time (aPTT) in platelet poor plasma bycoagulation assay 29 s 24-35 Comprehensive metabolic panel - 11/18/18 11:09 Serum or plasma sodium measurement (moles/volume) 136 mmol/L 135-145 Serum or plasma potassium measurement (moles/volume) 4.2 mmol/L 3.6-5.0 Serum or plasma chloride measurement (moles/volume) 101 mmol/L 98-107 Carbon dioxide 22 mmol/L 21-32 Serum or plasma anion gap determination (moles/volume) 13 mmol/L 5-14 Serum or plasma urea nitrogen measurement (mass/volume) 60 mg/dL 7-18 Serum or plasma creatinine measurement (mass/volume) 3.03 mg/dL 0.60-1.30 Serum or plasma urea nitrogen/creatinine mass ratio 20 NRG Serum or plasma creatinine measurement with calculation of estimated glomerular filtration rate 20 NRG Serum or plasma glucose measurement (mass/volume) 421 mg/dL 70-105 Serum or plasma calcium measurement (mass/volume) 9.2 mg/dL 8.5-10.1 Serum or plasma total bilirubin measurement (mass/volume) 0.6 mg/dL 0.1-1.0 Serum or plasma alkaline phosphatase measurement (enzymatic activity/volume) 110 U/L 40-136 Serum or plasma aspartate aminotransferase measurement (enzymatic activity/ volume) 16 U/L 5-34 Serum or plasma alanine aminotransferase measurement (enzymatic activity/volume ) 22 U/L 0-55 Serum or plasma protein measurement (mass/volume) 7.4 g/dL 6.4-8.2 Serum or plasma albumin measurement (mass/volume) 4.0 g/dL 3.2-4.5 CALCIUM CORRECTED 9.2 mg/dL 8.5-10.1 Magnesium - 11/18/18 11:09 Magnesium 2.2 mg/dL 1.8-2.4 Serum or plasma troponin i.cardiac measurement (mass/volume) - 11/18/18 11:09 Serum or plasma troponin i.cardiac measurement (mass/volume) < ng/ mL <0.028 Myoglobin, serum - 11/18/18 11:09 Myoglobin, serum 102.0 ng/mL 10.0-92.0 Serum or plasma lithium measurement (moles/volume) - 11/18/18 11:09 BNP level 68.7 pg/mL <100.0 Encounters ACCT No. Visit Date/Time Discharge Status Pt. Type Provider Facility Loc./Unit Complaint [id number] 02/27/2016 10:28:00 02/27/2016 10:28:00 DIS Outpatient LAURYN VILLANUEVA [facility] RAD [id number] 02/26/2016 09:52:00 02/26/2016 09:52:00 DIS Outpatient LAURYN VILLANUEVA [facility] [id number] 11/14/2015 13:28:00 11/14/2015 13:28:00 DIS Outpatient JR BRICEÑO Delfina [facility] RAD [id number] 08/21/2015 00:00:00 Document Registration [id number] 08/03/2018 15:21:58 08/03/2018 23:59:59 CLS Outpatient Es Hdialgo [id number] 05/18/2018 10:38:13 05/18/2018 23:59:59 CLS Outpatient Manjeet Bowie [id number] 01/19/2018 11:54:59 01/19/2018 23:59:[address] [facility] Bowie [id number] 01/05/2018 16:50:26 01/05/2018 23:59:59 CLS Outpatient Manjeet Tiago [id number] 09/26/2016 10:13:33 09/26/2016 23:59:59 CLS Outpatient Juan, V S [id number] 10/24/2014 14:30:41 10/24/2014 23:59:59 CLS Outpatient Juan, V S [id number] 10/10/2014 13:59:32 10/10/2014 23:59:59 CLS Outpatient Juan, V S [id number] 04/06/2014 09:21:00 04/06/2014 23:59:59 CLS Outpatient GABE MARILIA LAZARO [id number] 02/15/2014 15:07:00 02/15/2014 23:59:59 CLS Outpatient MARILIA BERNAL DDS [id number] 03/14/2018 11:27:10 ACT Document Registration [id number] 03/03/2018 03:31:57 03/03/2018 23:59:59 DIS Outpatient TRACEE CAMPOS [facility] [id number] 03/01/2018 09:54:36 03/01/2018 23:59:59 CLS Preadmit SIMON IRENE [facility] MS ACUTE ONCRONIC RENAL FAILURE [id number] 02/28/2018 20:14:00 02/28/2018 23:59:59 DIS Outpatient TRACEE CAMPOS [facility] [id number] 02/23/2018 16:21:22 02/23/2018 23:59:59 CLS Preadmit SIMON IRENE [facility] RAD elevated bmp [id number] 02/23/2018 11:53:42 02/23/2018 23:59:59 DIS Outpatient SIMON IRENE [facility] LAB [id number] 09/29/2017 12:57:00 09/29/2017 23:59:59 DIS Outpatient LAURYN VILLANUEVA [facility] [id number] 04/08/2017 08:22:18 04/08/2017 23:59:59 DIS Outpatient SIMON IRENE [facility] RAD heart failure [id number] 11/18/2016 11:03:32 11/18/2016 23:59:59 CLS Preadmit [facility] PT Weakness S/P Pneumonia [id number] 02/28/2018 21:05:00 ACT Akil SNYDERSIMON GARCIA [facility] OBS ed visit [id number] 02/10/2017 02:02:24 Document Registration [id number] 01/27/2017 02:00:34 Document Registration [id number] 01/13/2017 02:01:35 Document Registration [id number] 11/06/2016 14:57:02 Document Registration [id number] 11/05/2016 03:08:00 ACT ZECHARIAH MEZA [facility] OBS sick [id number] 07/20/2018 11:59:00 07/24/2018 12:25:00 DIS Inpatient JACKELINE CEE DO [facility] 4TH INFLUENZA B,SEPSIS,R ARM ABSCESS,A-FIB,RENAL - [id number] 04/10/2018 10:55:00 04/10/2018 23:59:59 CLS Outpatient ANGIE ARTIS, ZECHARIAH Gonzales [facility] [id number] 03/31/2018 21:30:00 04/01/2018 14:25:00 DIS Inpatient LUCIAN ARTIS, KRISTA Duke [facility] 4TH CHEST PAIN [id number] 11/18/2018 11:33:00 Document Registration [id number] 05/11/2018 11:28:52 Document Registration [id number] 05/04/2018 17:18:00 Document Registration [id number] 05/04/2018 13:26:00 Document Registration [id number] 08/11/2018 08:04:59 ACT Unknown Anna ARTIS, Simon [id number] 02/20/2016 16:15:00 Document Registration [id number] 11/07/2015 13:30:00 Document Registration [id number] 11/12/2018 13:40:00 11/12/2018 23:59:59 CLS Outpatient IGNACIA TIMMONS APRN [facility] [id number] 06/25/2018 09:00:00 Document Registration
--- NOTE | 2018-11-18 13:57 | NUR ---
CEE HERE ASSESSING PT AT THIS TIME.
--- NOTE | 2018-11-18 14:12 | History & Physical-Hospitalist ---
History of Present Illness HPI/Chief Complaint Chief Complaint: Chest pain. HPI: This is a clinic Pt of Eva Gottlieb at [facility] who has a history of HTN and chronic kidney disease. Pt sees Dr. Clark Nephrology on a regular basis and has been on dialysis for seventeen dialysis treatments but went off of dialysis in May, who presented to the ER with chest pain. Pt reports he went to the [employer] and had dinner and ate some pulled pork, which was terrible he reported, he felt like he could not get it dislodged out of his throat and currently feels like that after drinking a lot of fluid at home. He was found to be in need of cardiac risk stratification, in addtion I did speak with Dr. Chaudhry who will perform an EGD because I suspect there is still some pulled pork lodged in his esophagus. Creatinine was 3.0 and I did speak with Dr. 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 At this current time he reports his chest pain is on and off but does report it is coming from his throat to his upper chest. Source: patient, RN/MD Exam Limitations: no limitations Date Seen 11/18/18 Time Seen by a Provider: 14:15 Attending Physician PCP Krzysztof Garcia MD Referring Physician Date of Admission Home Medications & Allergies Home Medications Reviewed patient Home Medication Reconciliation performed by pharmacy medication reconciliations neurodiagnostic technician and/or nursing. Patients Allergies have been reviewed. Allergies Allergies Coded Allergies No Known Drug Allergies (Unverified03/31/18) Past Vbrhojl-Rggytx-Whoyet Hx Past Med/Social Hx: Reviewed Nursing Past Med/Soc Hx, Reviewed and Corrections made Patient Social History Employed/Student: retired Alcohol Use: Denies Use Number of Drinks Today: AA Alcohol Beverage of Choice: Beer Recreational Drug Use: No Smoking Status: Former Smoker Former Smoker, Quit: Apr 01, 1978 Type Used: Cigars, Cigarettes Recent Foreign Travel: No Contact w/other who traveled: No Recent Hopitalizations: Yes Recent Infectious Disease Expo: No Immunizations Up To Date Date of Pneumonia Vaccine: Jun 22, 2014 Date of Influenza Vaccine: Jul 06, 2018 Seasonal Allergies Seasonal Allergies: No Past Medical History Surgeries: Coronary Stent, Orthopedic Cardiac: Hypertension Genitourinary: Benign Prostatic Hyperpl, Kidney Infection, Renal Failure, Dialysis Gastrointestinal: Abdominal Hernia, Gastroesophageal Reflux Musculoskeletal: Arthritis, Rheumatoid Arthritis Endocrine: Diabetes, Non-Insulin dep HEENT: Macular Degeneration Skin/Integumentary: Psoriasis History of Blood Disorders: No Adverse Reaction to Blood Baker: No Family History Reviewed Nursing Family Hx Diabetes mellitus 19 MOTHER G8 BROTHER FH: pancreatic cancer 19 FATHER Diabetes Review of Systems Constitutional: see HPI, weakness EENTM: no symptoms reported Respiratory: dyspnea on exertion, short of breath Cardiovascular: chest pain Gastrointestinal: dysphagia Genitourinary: no symptoms reported Musculoskeletal: no symptoms reported Skin: no symptoms reported Psychiatric/Neurological: No Symptoms Reported All Other Systems Reviewed Negative Unless Noted: Yes Physical Exam Physical Exam Vital Signs Vital Signs - First Documented 11/18/18 11/18/18 11:00 16:22 Temp 96.4 Pulse 93 Resp 18 B/P (MAP) 196/95 (128) Pulse Ox 96 O2 Delivery Nasal Cannula O2 Flow Rate 2.0 FiO2 21 Capillary Refill : Less Than 3 Seconds Height, Weight, BMI Height: 5'7.00" Weight: 200lbs. 5.0oz. 90.060168ex; 32.3 BMI Method:Stated General Appearance: No Apparent Distress, WD/WN, Chronically ill, Obese Eyes: Right Eye Normal Inspection, Right Eye PERRL HEENT: PERRL/EOMI, Normal ENT Inspection, Pharynx Normal, Moist Mucous Membranes Neck: Full Range of Motion, Normal Inspection, Non Tender Respiratory: Chest Non Tender, Lungs Clear, Normal Breath Sounds, No Accessory Muscle Use, No Respiratory Distress, Decreased Breath Sounds Cardiovascular: Regular Rate, Rhythm, No Edema, No Gallop, No JVD, No Murmur, Normal Peripheral Pulses Gastrointestinal: Normal Bowel Sounds, No Organomegaly, No Pulsatile Mass, Non Tender, Soft Back: Normal Inspection, No CVA Tenderness, No Vertebral Tenderness Extremity: Normal Capillary Refill, Normal Inspection, Normal Range of Motion, Non Tender, No Calf Tenderness, No Pedal Edema Neurologic/Psychiatric: Alert, Oriented x3, No Motor/Sensory Deficits, Normal Mood/Affect Skin: Normal Color, Warm/Dry Lymphatic: No Adenopathy Results Results/Procedures Labs Laboratory Tests 11/18/18 11:09 Patient resulted labs reviewed. Assessment/Plan Admission Diagnosis Assessment: Chest pain Foreign body of pulled pork suspected lodged in esophagus CRF prev on dialysis HTN Plan: Dr Chaudhry and Dr Clark consultation Monitor closely Needs EGD Admission Status: Observation Diagnosis/Problems Diagnosis/Problems (1) Chest pain Status: Acute Qualifiers: Chest pain type: unspecified Qualified Codes: R07.9 - Chest pain, unspecified (2) Chronic kidney disease Status: Chronic Qualifiers: Chronic kidney disease stage: stage 5, not on chronic dialysis Qualified Codes: N18.5 - Chronic kidney disease, stage 5 (3) Esophageal obstruction Status: Acute Clinical Quality Measures AMI/AHF: ASA po Prior to arrival: JACKELINE Delatorre DO Nov 18, 2018 14:12
[2018-11-18 14:36] VITALS: BP 161/83
[2018-11-18] MEDS ORDERED: NITROGLYCERIN 0.4 MG SL TABS BTL 25'S SL PRN (15:00)
[2018-11-18 15:03] VITALS: BP 133/71
[2018-11-18 15:52] VITALS: BP 157/83
[2018-11-18] MEDS ORDERED: INSU100I29 SQ (16:06)
[2018-11-18] MEDS ORDERED: GLIP5TAB13 PO (16:06)
[2018-11-18] MEDS ORDERED: ALBU2.5V4 NEB (16:06)
[2018-11-18] MEDS ORDERED: CLIN300C11 PO (16:06)
[2018-11-18] MEDS ORDERED: ACET-2650 PO (16:13)
--- NOTE | 2018-11-18 16:14 | NUR ---
SPOKE WITH THE PATIENT ABOUT HIS MEDICATIONS. HE STATES HE IS NOT SURE WHAT HE TAKES AND HE ASKED THAT I CALL HIS DAUGHTER. I CALLED AND SPOKE WITH JUVENTINO AT [phone]. SHE VERIFIED WHAT HE IS CURRENTLY TAKING. [facility] FILLED: 11-16-18 CALCITRIOL 0.25MCG 3 TIMES WEEKLY 11-12-18 CLINDAMYCIN 300MG Q8H X 10 DAYS 11-04-18 ALBUTEROL NEBULIZER 0.083% TID PRN 11-04-18 ZPAK (FINISHED) 11-04-18 LEVEMIR PEN 20 UNITS BID 09-28-18 GLIPIZIDE 5MG BID #60 09-28-18 METOPROLOL SUCCINATE 50MG DAILY #90 09-17-18 FLOMAX 0.4MG DAILY #05-19-18 BUMEX 2MG BID #180 (TAKES 1 DAILY NEEDED FOR SWELLING) [facility] FILLED: JUNE PREDNISONE 5MG BID #360 HE STATES HE GETS HIS ELIQUIS 2.5MG BID MAILED TO HIM THROUGH PATIENT ASSISTANCE. HE ALSO STATES HE TAKES TYLENOL 650MG 2 DAILY NEEDED.
[2018-11-18 16:22] VITALS: BP 157/83
[2018-11-18] MEDS ORDERED: RT-ALBUTEROL SULF 2.5 MG/3 ML PRE-MIX VIAL INH PRN (16:30)
[2018-11-18] MEDS ORDERED: PROPOFOL INJECTION 50 ML IV ONE (16:44)
[2018-11-18] MEDS ORDERED: LACTATED RINGERS 1,000 ML IV ONE (16:49)
[2018-11-18] MEDS ORDERED: NS IV 500 ML 500 ML ONE (16:58)
--- NOTE | 2018-11-18 16:59 | Consultation ---
History of Present Illness History of Present Illness Patient Consulted On(candice/time) 11/18/18 16:53 Date Seen by Provider: Nov 18, 2018 Time Seen by Provider: 16:53 History of Present Illness consult requested by Dr. Wilde for food bolus/EGD Patient is an 88 year old male who last began having difficulty swallowing when eating pulled pork. Patient feels something lodged in the esophagus. This has improved slightly but unable to swallow all of his secretions after trying to eat more breakfast today around 9 am. He is having chest pain upper chest at midline no radiation. 5/10 pain. He is on Eliquis. Dr. Wilde has requested an EGD be performed today for further evaluation. He had a ct chest with no acute abnormality, thyroid nodule. Allergies and Home Medications Allergies Coded Allergies: No Known Drug Allergies (Unverified , 03/31/18) Home Medications Acetaminophen 650 Mg Tablet.er, 1,300 MG PO DAILY PRN for PAIN-MILD, (Reported) Albuterol Sulfate 2.5 Mg/3 Ml Vial.neb, 2.5 MG NEB TID PRN for SHORTNESS OF BREATH, (Reported) Apixaban 2.5 Mg Tablet, 2.5 MG PO BID, (Reported) Bumetanide 2 Mg Tablet, 2 MG PO DAILY PRN for SWELLING, (Reported) Calcitriol 0.25 Mcg Capsule, 0.25 MCG PO MoWeFr, (Reported) Clindamycin HCl 300 Mg Capsule, 300 MG PO Q8H, (Reported) 10 DAY SUPPLY FILLED 11-12-18 Glipizide 5 Mg Tablet, 5 MG PO BID, (Reported) Insulin Detemir 100 Unit/1 Ml Insuln.pen, 20 UNIT SQ BID, (Reported) Metoprolol Succinate 50 Mg Tab.er.24h, 50 MG PO DAILY, (Reported) Prednisone 5 Mg Tablet, 5 MG PO BID, (Reported) Tamsulosin HCl 0.4 Mg Cap.er.24h, 0.4 MG PO DAILY, (Reported) Patient Home Medication List Home Medication List Reviewed: Yes Past Stiufvv-Ateboz-Blwzel Hx Patient Social History Alcohol Use: Denies Use Number of Drinks Today: AA Recreational Drug Use: No Smoking Status: Former Smoker Former Smoker, Quit: Apr 01, 1978 Type Used: Cigars, Cigarettes Recent Foreign Travel: No Contact w/Someone Who Travel: No Recent Infectious Disease Expo: No Recent Hopitalizations: Yes Physical Abuse Screen: No Sexual Abuse: No Immunizations Up To Date PED Vaccines UTD: No Date of Pneumonia Vaccine: Jun 22, 2014 Date of Influenza Vaccine: Jul 06, 2018 Seasonal Allergies Seasonal Allergies: No Surgeries History of Surgeries: Yes (hernia, dialysis shunt in left arm, umbilical hernia repair, ) Surgeries: Coronary Stent, Orthopedic Respiratory History of Respiratory Disorde: No Cardiovascular History of Cardiac Disorders: Yes Cardiac Disorders: Hypertension Neurological History of Neurological Disord: No Genitourinary History of Genitourinary Disor: No (stopped dialysis 6 months ago) Genitourinary Disorders: Benign Prostatic Hyperpl, Kidney Infection, Renal Failure, Dialysis Gastrointestinal History of Gastrointestinal Di: Yes Gastrointestinal Disorders: Abdominal Hernia, Gastroesophageal Reflux Musculoskeletal History of Musculoskeletal Dis: Yes Musculoskeletal Disorders: Arthritis, Rheumatoid Arthritis Endocrine History of Endocrine Disorders: Yes Endocrine Disorders: Diabetes, Non-Insulin dep HEENT History of HEENT Disorders: Yes HEENT Disorders: Macular Degeneration Cancer History of Cancer: No Psychosocial History of Psychiatric Problem: No Integumentary History of Skin or Integumenta: Yes Skin/Integumentary Disorders: Psoriasis Blood Transfusions History of Blood Disorders: No Adverse Reaction to a Blood Tr: No Family Medical History Significant Family History: Diabetes Family Medial History: Diabetes mellitus 19 MOTHER G8 BROTHER FH: pancreatic cancer 19 FATHER Review of Systems-General Constitutional: no symptoms reported EENTM: no symptoms reported Respiratory: no symptoms reported Cardiovascular: see HPI Gastrointestinal: see HPI Musculoskeletal: no symptoms reported Skin: no symptoms reported Psychiatric/Neurological: No Symptoms Reported Physical Exam-General Problems Physical Exam Vital Signs Vital Signs - First Documented 11/18/18 11/18/18 11:00 16:22 Temp 96.4 Pulse 93 Resp 18 B/P (MAP) 196/95 (128) Pulse Ox 96 O2 Delivery Nasal Cannula O2 Flow Rate 2.0 FiO2 21 Capillary Refill : Less Than 3 Seconds General Appearance: no apparent distress HEENT: PERRL/EOMI Neck: non-tender, supple Respiratory: normal breath sounds, no respiratory distress Cardiovascular: regular rate, rhythm Gastrointestinal: non tender, soft Rectal: deferred Back: no CVA tenderness Extremities: non-tender (left shunt good thrill) Neurologic/Psychiatric: no motor/sensory deficits, alert, normal mood/affect, oriented x 3 Skin: normal color, warm/dry Lymphatic: no adenopathy Data Review Labs Laboratory Tests 11/18/18 11:09: White Blood Count 11.6H, Red Blood Count 4.49, Hemoglobin 13.0L, Hematocrit 41, Mean Corpuscular Volume 92, Mean Corpuscular Hemoglobin 29, Mean Corpuscular Hemoglobin Concent 32, Red Cell Distribution Width 14.7H, Platelet Count 239, Mean Platelet Volume 9.6, Neutrophils (%) (Auto) 73, Lymphocytes (%) (Auto) 18, Monocytes (%) (Auto) 7, Eosinophils (%) (Auto) 1, Basophils (%) (Auto) 0, Neutrophils # (Auto) 8.4H, Lymphocytes # (Auto) 2.1, Monocytes # (Auto) 0.9, Eosinophils # (Auto) 0.2, Basophils # (Auto) 0.1, Prothrombin Time 13.9, INR Comment 1.1, Activated Partial Thromboplast Time 29, Sodium Level 136, Potassium Level 4.2, Chloride Level 101, Carbon Dioxide Level 22, Anion Gap 13, Blood Urea Nitrogen 60H, Creatinine 3.03H, Estimat Glomerular Filtration Rate 20 , BUN/Creatinine Ratio 20, Glucose Level 421*H, Calcium Level 9.2, Corrected Calcium 9.2, Magnesium Level 2.2, Total Bilirubin 0.6, Aspartate Amino Transf ( AST/SGOT) 16, Alanine Aminotransferase (ALT/SGPT) 22, Alkaline Phosphatase 110, Myoglobin 102.0H, Troponin I < 0.028, B-Type Natriuretic Peptide 68.7, Total Protein 7.4, Albumin 4.0 11/18/18 12:09: Urine Color YELLOW, Urine Clarity CLEAR, Urine pH 5, Urine Specific [place] 1.010L, Urine Protein NEGATIVE, Urine Glucose (UA) 4+H, Urine Ketones NEGATIVE, Urine Nitrite NEGATIVE, Urine Bilirubin NEGATIVE, Urine Urobilinogen NORMAL, Urine Leukocyte Esterase NEGATIVE, Urine RBC (Auto) NEGATIVE, Urine RBC NONE, Urine WBC 0-2, Urine Squamous Epithelial Cells 2-5, Urine Crystals NONE, Urine Bacteria NEGATIVE, Urine Casts NONE, Urine Mucus NEGATIVE, Urine Culture Indicated NO 11/18/18 15:51: Glucometer 214H Assessment/Plan Assessment/Plan Assessment/Plan chest pain possible food bolus esophagus dysphagia half-way anticoagulation patient discussed risks of egd. he understands he is higher risk. he wishes to proceed plan for egd for further evaluation Clinical Quality Measures AMI/AHF: ASA po Prior to arrival: No DVT/VTE Risk/Contraindication: Risk Factor Score Per Nursin RFS Level Per Nursing on Admit: 3=High SILVERIO MONTILLA DO Nov 18, 2018 16:59
[2018-11-18] MEDS ORDERED: NS IV 500 ML 500 ML IV ONE (17:00)
[2018-11-18] MEDS ORDERED: SUCCINYLCHOLINE INJ 100 MG/5 ML SYR ONE (17:08)
--- NOTE | 2018-11-18 17:19 | Progress Note-Post Operative ---
Post-Operative Progess Note Surgeon (s)/Director Of Public Works (s) Surgeon SILVERIO MONTILLA DO Director Of Public Works: na Pre-Operative Diagnosis dysphagia, chest pain, possible food bolus Post-Operative Diagnosis esophagitis, possible pressure necrosis esophagus Procedure & Operative Findings Date of Procedure 11/18/18 Procedure Performed/Findings egd Anesthesia Type per calculus professor Estimated Blood Loss Estimated blood loss (mL): none Specimens/Packing Specimens Removed na SILVERIO MONTILLA DO Nov 18, 2018 17:19
--- NOTE | 2018-11-18 17:25 | Anesthesia-General Post-Op ---
MAC Patient Condition Mental Status/LOC: Same as Preop Cardiovascular: Satisfactory Nausea/Vomiting: Absent Respiratory: Satisfactory Pain: Controlled Complications: Absent Post Op Complications Complications None Follow Up Care/Instructions Patient Instructions None needed. Anesthesiology Discharge Order Discharge Order Patient is doing well, no complaints, stable vital signs, no apparent adverse anesthesia problems. No complications reported per nursing. YUMIKO WATSON CRNA Nov 18, 2018 17:24
--- NOTE | 2018-11-18 17:40 | NUR ---
PATIENT BACK TO THE FLOOR FROM EGD. DR MONTILLA IS TALKING TO THE FAMILY. REPORT RECEIVED FROM SHOLA ROLLE. PT IS ALERT AND ORIENTED AT THIS TIME AND ON ROOM AIR. PATIENT DENIES ANY NEEDS AT THIS TIME.
[2018-11-18] MEDS ORDERED: HURRICAINE EXT TUBE (BENZOCAINE) XX ONE (18:00)
[2018-11-18] MEDS: PANTOPRAZOLE 40 MG (PROTONIX) VIAL IV SCH (18:12)
--- OUTSIDE RECORDS SUMMARY | 2018-11-18 18:40 | XMS REPORT | Continuity of Care Document ---
Demographics x Preferred Language Unknown Marital Status Unknown Sikhism Affiliation Unknown Race Unknown Ethnic Group Unknown Author Author [facility] Organization 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 04/01/2018 KRISTA EPSTEIN MD Ot I12.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 04/01/2018 KRISTA EPSTEIN MD, Ot 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, UNSPECIFIED 04/01/2018 KRISTA EPSTEIN MD Ot N18.6 END STAGE RENAL DISEASE 04/01/2018 KRISTA EPSTEIN MD Ot R07.2 PRECORDIAL PAIN 04/01/2018 KRISTA EPTSEIN MD Ot R94.8 ABNORMAL RESULTS OF FUNCTION STUDIES OF 04/01/2018 KRISTA EPSTEIN MD, Ot Z79.4 SKILLED NURSING (CURRENT) USE OF INSULIN 04/01/2018 KRISTA EPSTEIN MD Ot Z79.899 OTHER IRONER (CURRENT) DRUG THERAPY 04/01/2018 KRISTA EPSTEIN MD, Ot Z87.891 PERSONAL HISTORY OF NICOTINE DEPENDENCE 04/01/2018 KRISTA EPSTEIN MD Ot Z99.2 DEPENDENCE ON RENAL DIALYSIS 04/01/2018 KRISTA EPSTEIN MD, Ot D64.9 ANEMIA, UNSPECIFIED 04/01/2018 KRISTA EPSTEIN MD Ot 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 04/01/2018 KRISTA EPSTEIN MD Ot I12.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 04/01/2018 KRISTA EPSTEIN MD Ot 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, UNSPECIFIED 04/01/2018 KRISTA EPSTEIN MD Ot N18.6 END STAGE RENAL DISEASE 04/01/2018 KRISTA EPSTEIN MD Ot R07.2 PRECORDIAL PAIN 04/01/2018 KRISTA EPSTEIN MD Ot R94.8 ABNORMAL RESULTS OF FUNCTION STUDIES OF 04/01/2018 KRISTA EPSTEIN MD Ot Z79.4 SKILLED NURSING (CURRENT) USE OF INSULIN 04/01/2018 KRISTA EPSTEIN MD Ot Z79.899 OTHER SKILLED NURSING (CURRENT) DRUG THERAPY 04/01/2018 KRISTA EPSTEIN MD Ot Z87.891 PERSONAL HISTORY OF NICOTINE DEPENDENCE 04/01/2018 KRISTA EPSTEIN MD Ot Z99.2 DEPENDENCE ON RENAL DIALYSIS 04/03/2018 KRISTA EPSTEIN MD Ot D64.9 ANEMIA, UNSPECIFIED 04/03/2018 KRISTA EPSTEIN MD Ot 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 04/03/2018 KRISTA EPSTEIN MD Ot I12.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 04/03/2018 KRISTA EPSTEIN MD Ot 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, UNSPECIFIED 04/03/2018 KRISTA EPSTEIN MD Ot N18.6 END STAGE RENAL DISEASE 04/03/2018 KRISTA EPSTEIN MD Ot R07.2 PRECORDIAL PAIN 04/03/2018 KRISTA EPSTEIN MD Ot R94.8 ABNORMAL RESULTS OF FUNCTION STUDIES OF 04/03/2018 KRISTA EPSTEIN MD Ot Z79.4 SKILLED NURSING (CURRENT) USE OF INSULIN 04/03/2018 KRISTA EPSTEIN MD Ot Z79.899 OTHER SKILLED NURSING (CURRENT) DRUG THERAPY 04/03/2018 KRISTA EPSTEIN MD Ot Z87.891 PERSONAL HISTORY OF NICOTINE DEPENDENCE 04/03/2018 KRISTA EPSTEIN MD Ot Z99.2 DEPENDENCE ON RENAL DIALYSIS 04/13/2018 ZECHARIAH ADAMS MD Ot N18.9 CHRONIC KIDNEY DISEASE, UNSPECIFIED 05/04/2018 P [id number] Other difficulties with micturition 05/07/2018 P J00277 Other difficulties with micturition 07/20/2018 ZECHARIAH ADAMS MD Ot N18.9 CHRONIC KIDNEY DISEASE, UNSPECIFIED 07/23/2018 JAYE SMITH JACKELINE Ot A41.9 SEPSIS, UNSPECIFIED ORGANISM 07/23/2018 JAYE SMITH JACKELINE Ot E11.9 TYPE 2 [...] FEVER) 07/23/2018 CARLOS CEE DOI Ot Z79.84 IRONER (CURRENT) USE OF ORAL HYPOGLYC 07/23/2018 JAYE SMITH JACKELINE Ot Z87.891 PERSONAL HISTORY OF NICOTINE DEPENDENCE 07/24/2018 JAYE SMITH JACKELINE Ot A41.9 SEPSIS, UNSPECIFIED ORGANISM 07/24/2018 JAYE SMITH JACKELINE Ot E11.9 TYPE 2 DIABETES MELLITUS WITHOUT COMPLIC 07/24/2018 JAYE SMIHT JACKELINE Ot H35.30 UNSPECIFIED MACULAR DEGENERATION 07/24/2018 JAYE SMITH JACKELINE Ot I12.9 HYPERTENSIVE CHRONIC KIDNEY DISEASE W ST 07/24/2018 JAYE SMITH JACKELINE Ot I48.0 PAROXYSMAL ATRIAL FIBRILLATION 07/24/2018 JACKELIEN CEE DO Ot J10.89 INFLUENZA DUE TO [...] FEVER) 07/24/2018 JACKELINE CEE DO Ot Z79.84 IRONER (CURRENT) USE OF ORAL HYPOGLYC 07/24/2018 JACKELINE [...] FEVER) 07/24/2018 JACKELINE CEE DO Ot Z79.84 IRONER (CURRENT) USE OF ORAL HYPOGLYC 07/24/2018 JACKELINE CEE DO Ot Z87.891 PERSONAL HISTORY OF NICOTINE DEPENDENCE Procedures Code Description Performed By [place]formed On D0140 LIMIT ORAL EVAL PROBLM FOCUS 02/15/2014 D0220 INTRAORAL PERIAPICAL FIRST F 02/15/2014 D7140 EXTRACTION ERUPTED TOOTH/ EXR 02/15/2014 D7140 EXTRACTION ERUPTED TOOTH/ EXR 04/06/2014 84773 JOINT SURVEY SINGLE VIEW 11/07/2015 80238 OFFICE/OUTPATIENT VISIT NEW 11/07/2015 25703 X-RAY EXAM OF ELBOW 11/14/2015 93225 OFFICE/OUTPATIENT VISIT EST 02/20/2016 37379 FIBRIN DEGRADATION, QUANT 02/26/2016 76258 LUNG PERFUSION IMAGING 02/27/2016 A9540 TC 99M [...] 09:49 Bacteria identification in wound by culture [id number] NRG FREE TEXT EXTERNAL RML PHONED MRSA [...] OF GROWTH Isolated NRG Bacterial blood culture [id number] NR FREE TEXT ENTRY 2 ID REPORTED [...] 11/18/18 11:09 BNP level 68.7 pg/mL <100.0 Complete urinalysis with reflex to culture - 11/18/18 12:09 Urine color determination YELLOW NRG Urine clarity determination CLEAR NRG Urine pH measurement by test strip 5 5-9 Specific gravity of urine by test strip 1.010 1.016- 1.022 Urine protein assay by test strip, semi-quantitative NEGATIVE NEGATIVE Urine glucose detection by automated test strip 4+ NEGATIVE Erythrocytes detection in urine sediment by light microscopy NEGATIVE NEGATIVE Urine ketones detection by automated test strip NEGATIVE NEGATIVE Urine nitrite detection by test strip NEGATIVE NEGATIVE Urine total bilirubin detection by test strip NEGATIVE NEGATIVE Urine urobilinogen measurement by automated test strip (mass/volume) NORMAL NORMAL Urine leukocyte esterase detection by dipstick NEGATIVE NEGATIVE Automated urine sediment erythrocyte count by microscopy (number/high power field) NONE NRG Automated urine sediment leukocyte count by microscopy (number/high power field ) [HPF] NRG Bacteria detection in urine sediment by light microscopy NEGATIVE NRG Squamous epithelial cells detection in urine sediment by light microscopy 2-5 NRG Crystals detection in urine sediment by light microscopy NONE NRG Casts detection in urine sediment by light microscopy NONE NRG Mucus detection in urine sediment by light microscopy NEGATIVE NRG Complete urinalysis with reflex to culture NO NRG Capillary blood glucose measurement by glucometer (mass/volume) - 11/18/18 15: 51 Capillary blood glucose measurement by glucometer (mass/volume) 214 mg/dL 70-110 Encounters ACCT No. Visit Date/Time Discharge Status Pt. Type Provider Facility Loc./Unit Complaint [id number] 02/27/2016 10:28:00 02/27/2016 10:28:00 DIS Outpatient LAURYN VILLANUEVA [facility] [id number] 02/26/2016 09:52:00 02/26/2016 09:52:00 DIS Outpatient LAURYN VILLANUEVA [facility] [id number] 11/14/2015 13:28:00 11/14/2015 13:28:00 DIS Outpatient JR BRICEÑO [facility] RAD [id number] 08/21/2015 00:00:00 Document Registration [id number] 08/03/2018 15:21:58 08/03/2018 23:59:59 [facility] Outpatient sE Hidalgo [id number] 05/18/2018 10:38:13 05/18/2018 23:59:59 CLS Outpatient Tiago Burroughs [id number] 01/19/2018 11:54:59 01/19/2018 23:59:59 CLS Outpatient Tiago Burroughs [id number] 01/05/2018 16:50:26 01/05/2018 23:59:59 CLS Outpatient Tiago Burroughs [id number] 09/26/2016 10:13:33 09/26/2016 23:59:59 CLS Outpatient Juan, V S [id number] 10/24/2014 14:30:41 10/24/2014 23:59:59 CLS Outpatient Juan, V S [id number] 10/10/2014 13:59:32 10/10/2014 23:59:59 CLS Outpatient Juan, V S [id number] 04/06/2014 09:21:00 04/06/2014 23:59:59 CLS Outpatient GABE DDMARILIA Guerrero [id number] 02/15/2014 15:07:00 02/15/2014 23:59:59 CLS Outpatient GABE DDSMARILIA [facility]IZ 03/14/2018 11:27:10 ACT Document Registration [id number] 03/03/2018 03:31:57 03/03/2018 23:59:59 DIS Outpatient TRACEE CAMPOS [facility] [id number] 03/01/2018 09:54:36 03/01/2018 23:59:59 [address] [facility] ACUTE ONCRONIC RENAL FAILURE [id number] 02/28/2018 20:14:00 02/28/2018 23:59:59 DIS Outpatient TRACEE CAMPOS [facility] [id number] 02/23/2018 16:21:22 02/23/2018 23:59:59 CLS P[address]mit SIMON CASTILLO [facility] elevated bmp [id number] 02/23/2018 11:53:42 02/23/2018 23:59:59 DIS Outpatient SIMON CASTILLO [facility] [id number] 09/29/2017 12:57:00 09/29/2017 23:59:59 DIS Outpatient LAURYN VILLANUEVA [facility] [id number] 04/08/2017 08:22:18 04/08/2017 23:59:59 DIS Outpatient SIMON CASTILLO [facility] heart failure [id number] 11/18/2016 11:03:32 11/18/2016 23:59:[address] [facility] PT Weakness S/P Pneumonia [id number] 02/28/2018 21:05:00 ACT V SIMON CASTILLO [facility] OBS ed visit [id number] 02/10/2017 02:02:24 Document Registration [id number] 01/27/2017 02:00:34 Document Registration [id number] 01/13/2017 02:01:35 Document Registration [id number] 11/06/2016 14:57:02 Document Registration [id number] 11/05/2016 03:08:[address] [facility] O[facility] sick [id number] 07/20/2018 11:59:00 07/24/2018 12:25:00 DIS Inpatient JACKELINE CEE DO [facility] 4TH INFLUENZA B,SEPSIS,R ARM ABSCESS,A-FIB,RENAL - [id number] 04/10/2018 10:55:00 04/10/2018 23:59:59 CLS Outpatient ZECHARIAH ADAMS MD [facility] [id number] 03/31/2018 21:30:00 04/01/2018 14:25:00 DIS Inpatient KRISTA EPSTEIN MD [facility] 4TH CHEST PAIN [id number] 11/18/2018 11:33:00 Document Registration [id number] 05/11/2018 11:28:52 Document Registration [id number] 05/04/2018 17:18:00 Document Registration [id number] 05/04/2018 13:26:00 Document Registration [id number] 08/11/2018 08:04:59 ACT Unknown Simon Castillo MD [id number] 02/20/2016 16:15:00 Document Registration [id number] 11/07/2015 13:30:00 Document Registration [id number] 11/12/2018 13:40:00 11/12/2018 23:59:59 CLS Outpatient IGNACIA TIMMONS APRN [facility] [id number] 06/25/2018 09:00:00 Document Registration
[2018-11-18 19:38] VITALS: BP 127/75
[2018-11-18] MEDS: SUCRALFATE 1 GM (CARAFATE) TAB PO SCH (20:16)
[2018-11-18] MEDS: RT-ALBUTEROL SULF 2.5 MG/3 ML PRE-MIX VIAL INH SCH ×2 (22:01→22:08)
[2018-11-18 23:37] VITALS: BP 145/70
[2018-11-19] VITALS (8 sets, daily range): BP systolic 140–193; BP diastolic 65–109
--- NOTE | 2018-11-19 02:30 | OPERATIVE REPORT ---
DATE OF SERVICE: 11/18/2018 PREOPERATIVE DIAGNOSES: Dysphagia, chest pain, possible food bolus. 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 PROCEDURE: EGD. SURGEON: Silverio Chaudhry DO ANESTHESIA: Per BUTTERMILK DRIER OPERATOR. ESTIMATED BLOOD LOSS: None. COMPLICATIONS: None. INDICATIONS: The patient is an 88-year-old male who presented to the Emergency Department with chest pain. He has been having to spit up to his secretions partially. The patient is having difficulty swallowing. The patient is on long-term anticoagulation and high risk. There is concern for patient having food bolus. He was explained risks and benefits of procedure and wished to proceed with procedure. Consent was signed and on the chart. DESCRIPTION OF PROCEDURE: The patient was taken to the endoscopy suite, placed in left lateral recumbent position. Timeout was performed. Scope was inserted in the mouth into the esophagus without any difficulty. Encountered a few small areas of some purplish discoloration mostly may be secondary to superficial pressure necrosis. There is also a linear ulceration down the right side of the esophagus. The lumen is completely opened and no stricture. The scope was continued to be inserted into the stomach and then into the duodenum without difficulty. There were no polyps, mass or ulcerations within the duodenum. Scope was slowly retracted back. The stomach was further insufflated. Some slight erythematous changes, but no polyps, masses or ulcerations visualized. Scope was retroflexed noting no other pathology. Scope was returned to its normal position, slowly withdrawn to the distal esophagus, which had normal findings except for some slight erythematous changes and the findings as noted above. Scope was then slowly retracted back noting no other pathology except for as mentioned above. The patient had scope slowly retracted until completely removed. RECOMMENDATIONS: The patient will be started on Protonix 40 mg daily and Carafate 1 gram four times a day. The patient will be monitored closely to see if any worsening may need repeat endoscopy to see if any worsening of condition. Job ID: [id number] DocumentID: [id number] Dictated Date: 11/18/2018 17:25:41 Operations Mgr Date: 11/19/2018 02:29:48 Dictated By: SILVERIO CHAUDHRY DO
[2018-11-19] MEDS: SUCRALFATE 1 GM (CARAFATE) TAB PO SCH ×4 (05:54→20:41)
[2018-11-19] MEDS ORDERED: HEParin 1000 UNIT/ML (10ML VIAL) FOR BOLUS ONE (06:44)
[2018-11-19] MEDS ORDERED: NS IV 1000 ML 2,000 ML ONE (06:44)
[2018-11-19] MEDS ORDERED: LIDOCAINE 1% INJ 20 ML 20 ML VIAL ONE (06:44)
[2018-11-19 07:45] LABS: MYOGLOBIN SERUM 123.6 NG/ML (10.0-92.0)
[2018-11-19] MEDS: RT-ALBUTEROL SULF 2.5 MG/3 ML PRE-MIX VIAL INH SCH ×2 (08:05→20:05)
[2018-11-19] MEDS: PANTOPRAZOLE 40 MG (PROTONIX) VIAL IV SCH (08:12)
[2018-11-19] MEDS ORDERED: 1/2 NS IV SOLUTION 1,000 ML IV ONE (08:33)
[2018-11-19] MEDS ORDERED: ASPIRIN E.C. 81 MG (ECOTRIN) TAB PO SCH (09:00)
[2018-11-19] MEDS ORDERED: MIDAZOLAM 5 MG/5 ML (VERSED) VIAL ONE ×2 (09:31→12:00)
[2018-11-19] MEDS ORDERED: fentaNYL INJECTION 100 MCG/2 ML AMP ONE ×3 (09:31→13:34)
--- NOTE | 2018-11-19 09:34 | Cardiac Procedure Note-CS/ASA ---
Pre-Procedure Note Pre-Op Procedure Note H&P Reviewed The H&P was reviewed, patient examined and no changes noted. Date H&P Reviewed: Nov 19, 2018 Time H&P Reviewed: 09:34 Conscious Sedation Pre-Proced Time 09:34 ASA Score 3 For ASA 3 and 4: Consider anesthesia and medical clearance. Also, for patients with a history of failed moderate sedation consider anesthesia. Airway Lungs Heart ASA score ASA 1: a normal healthy patient ASA 2: a patient with a mild systemic disease (mid diabetes, controlled hypertension, obesity ASA 3: a patient with a severe systemic disease that limits activity (angina , COPD, prior Myocardial infarction) ASA 4: a patient with an incapacitating disease that is a constant threat to life (CHF, renal failure) ASA 5: a moribund patient not expected to survive 24 hrs. (ruptured aneurysm) ASA 6: a declared brain- patient whose organs are being harvested. For emergent operations, add the letter E after the classification Mallampati Classification Grade 1 Sedation Plan Analgesia, Amnesia, Plan communicated to team members, Discussed options with patient/fam, Discussed risks with patient/fam The patient is an appropriate candidate to undergo the planned procedure, sedation, and anesthesia. The patient immediately re-assessed prior to indication. Abner TO MD Nov 19, 2018 09:34
--- NOTE | 2018-11-19 09:34 | Cardiology Progress Note ---
Cardiology SOAP Progress Note Subjective: No current active chest pain. Objective: I&O/Vital Signs 11/18/18 11/19/18 11/19/18 11/19/18 23:37 01:00 03:57 07:00 Temp 97.5 98.0 Pulse 73 74 88 73 Resp 16 18 B/P (MAP) 145/70 (95) 145/77 (99) Pulse Ox 97 94 O2 Delivery Room Air Room Air 11/19/18 11/19/18 07:58 08:07 Temp 97.6 Pulse 75 Resp 18 B/P (MAP) 150/77 (101) Pulse Ox 93 93 O2 Delivery Room Air Nasal Cannula O2 Flow Rate 2.00 11/19/18 00:00 Intake Total 1280 ml Balance 1280 ml Weight (Pounds): 212 Weight (Ounces): 1.0 Weight (Calculated Kilograms): 96.042920 Constitutional: appears stated age, AAO x 3, well-developed, well-nourished Respiratory: chest is bilaterally symmetric, lungs clear to auscultation Cardiovascular: regular rate-rhythm, S1 and S2 Gastrointestional: No tender, No soft, No round, No distended, No pulsatile mass, No organomegaly, No guarding, No rebound, No tenderness, No hernia, No mass, No audible bowel sounds, No abnormal bowel sounds, No abdominal bruits, No spleenomegaly, No other Extremities: No normal range of motion, No non-tender, No normal inspection, No pedal edema, No calf tenderness, No normal capillary refill, No pelvis stable , No calf tenderness, No inflammation, No pedal edema, No slow capillary refill , No swelling, No other, No abrasion, No clubbing, No cyanosis, No ecchymosis, No laceration, No no lower extremity edema bilateral, No significant edema, No tenderness, No wound Neurologic/Psychiatric: no motor/sensory deficits, alert, normal mood/affect, oriented x 3, power is 5/5 both on sides Skin: No normal color, No warm/dry, No cyanosis, No cool, No diaphoresis, No damp, No ecchymosis, No jaundice, No mottled, No pallor, No rash, No tattoos/ piercings, No ulcerations, No rash on exposed areas, No ulcerations on exposed areas, No other Results/Procedures: Labs Laboratory Tests 11/18/18 11:09: White Blood Count 11.6H, Red Blood Count 4.49, Hemoglobin 13.0L, Hematocrit 41, Mean Corpuscular Volume 92, Mean Corpuscular Hemoglobin 29, Mean Corpuscular Hemoglobin Concent 32, Red Cell Distribution Width 14.7H, Platelet Count 239, Mean Platelet Volume 9.6, Neutrophils (%) (Auto) 73, Lymphocytes (%) (Auto) 18, Monocytes (%) (Auto) 7, Eosinophils (%) (Auto) 1, Basophils (%) (Auto) 0, Neutrophils # (Auto) 8.4H, Lymphocytes # (Auto) 2.1, Monocytes # (Auto) 0.9, Eosinophils # (Auto) 0.2, Basophils # (Auto) 0.1, Prothrombin Time 13.9, INR Comment 1.1, Activated Partial Thromboplast Time 29, Sodium Level 136, Potassium Level 4.2, Chloride Level 101, Carbon Dioxide Level 22, Anion Gap 13, Blood Urea Nitrogen 60H, Creatinine 3.03H, Estimat Glomerular Filtration Rate 20 , BUN/Creatinine Ratio 20, Glucose Level 421*H, Calcium Level 9.2, Corrected Calcium 9.2, Magnesium Level 2.2, Total Bilirubin 0.6, Aspartate Amino Transf ( AST/SGOT) 16, Alanine Aminotransferase (ALT/SGPT) 22, Alkaline Phosphatase 110, Myoglobin 102.0H, Troponin I < 0.028, B-Type Natriuretic Peptide 68.7, Total Protein 7.4, Albumin 4.0 11/18/18 12:09: Urine Color YELLOW, Urine Clarity CLEAR, Urine pH 5, Urine Specific [place] 1.010L, Urine Protein NEGATIVE, Urine Glucose (UA) 4+H, Urine Ketones NEGATIVE, Urine Nitrite NEGATIVE, Urine Bilirubin NEGATIVE, Urine Urobilinogen NORMAL, Urine Leukocyte Esterase NEGATIVE, Urine RBC (Auto) NEGATIVE, Urine RBC NONE, Urine WBC 0-2, Urine Squamous Epithelial Cells 2-5, Urine Crystals NONE, Urine Bacteria NEGATIVE, Urine Casts NONE, Urine Mucus NEGATIVE, Urine Culture Indicated NO 11/18/18 15:51: Glucometer 214H 11/18/18 18:00: Troponin I < 0.028 11/18/18 20:23: Glucometer 367H 11/19/18 05:49: Glucometer 147H 11/19/18 07:12: Myoglobin 123.6H, Triglycerides Level 154H, Cholesterol Level 126, LDL Cholesterol Direct 56, VLDL Cholesterol 31, HDL Cholesterol 44 A/P: Assessment/Dx: Unstable angina, Shortness of breath, Paroxysmal atrial fibrillation, Chronic kidney disease stage IV, Diabetes. Plan: He has history of end-stage renal disease and was on dialysis, but has been taken off dialysis. He had an episode of paroxysmal atrial fibrillation and was started on Eliquis and flecainide at that point in time. He also has history of rheumatoid arthritis and takes prednisone. He has history of diabetes. He had a previous admission in [facility] for chest pain. Serial troponin were negative. EKG did not reveal any acute ST-T wave abnormalities. Coronary angiography was recommended however the patient refused. 1. Chest pain: Prolonged episode of chest pain. Patient has significant risk factors for CAD including diabetes and end-stage chronic kidney disease. This is likely unstable angina. Coronary angiography is recommended. All risk and complication were explained in detail including risk of dialysis and worsening renal function. Coronary angiography this morning. Stress test was done in [facility] on 03/05/2018 which showed no inducible ischemia or infarction. Echocardiogram done on 03/04/2018 at [facility] showed mild concentric LVH with diastolic interventional septal diameter of 1.1 cm. EF 70 percent. No valvular heart disease. 2. Shortness of breath: Normal BNP. Unlikely to be significant congestive heart failure. We will repeat an echocardiogram. Peripheral edema. No significant crackles. Normal LV function on echocardiogram done on 03/04/2018 with mild concentric LVH.. Continue Bumex. 3. Paroxysmal atrial fibrillation: One episode of atrial fibrillation according to the history. Continue low dose Eliquis and metoprolol. Flecainide discontinued previously. 4. Hypertension: Continue metoprolol. Well controlled. 5. End-stage renal disease: Follows nephrology as an outpatient. Generous IV fluids before and after the procedure. 6. Esophageal disease: Dr. Chaudhry is following. Thank you for your consultation. Please call me if you have any questions. Mireille Clark MD, FACP, FACC, FSCAI, FHRS, CCDS Interventional Cardiology Cardiac Electrophysiology Vascular Medicine and Endovascular Interventions Clinical Quality Measures AMI/AHF: ASA po Prior to arrival: Abner Nolasco MD Nov 19, 2018 09:34
--- NOTE | 2018-11-19 09:41 | Progress Note-Hospitalist ---
Subjective HPI/CC On Admission Date Seen by Provider: Nov 19, 2018 Time Seen by Provider: 09:30 Chief Complaint: Chest pain. HPI: This is a clinic Pt of Eva Gottlieb at [facility] who has a history of HTN and chronic kidney disease. Pt sees Dr. Clark Nephrology on a regular basis and has been on dialysis for seventeen dialysis treatments but went off of dialysis in May, who presented to the ER with chest pain. Pt reports he went to the [employer] and had dinner and ate some pulled pork, which was terrible he reported, he felt like he could not get it dislodged out of his throat and currently feels like that after drinking a lot of fluid at home. He was found to be in need of cardiac risk stratification, in addtion I did speak with Dr. Chaudhry who will perform an EGD because I suspect there is still some pulled pork lodged in his esophagus. Creatinine was 3.0 and I did speak with Dr. Clark who spoke to his who is his rrts and a minimal use of contrast will be used during the cardiac catheterization tomorrow. At this current time he reports his chest pain is on and off but does report it is coming from his throat to his upper chest. Subjective/Events-last exam EGD reviewed with Dr. Chaudhry which he is now maintained on Carafate and Proton pump inhibitor. Undergoing cardiac catheterization today of which he has never had one before. His pharmacy is [facility]. Denies any chest pain currently. Daughter is at the bedside who is a nurse. Review of Systems Cardiovascular: Chest Pain Objective Exam Vital Signs Vital Signs Date Time Temp Pulse Resp B/P (MAP) Pulse Ox O2 Delivery O2 Flow Rate FiO2 11/19/18 18:15 97.6 91 20 140/78 (98) 96 Room Air 11/19/18 08:07 2.00 11/18/18 16:22 21 Capillary Refill : Less Than 3 Seconds General Appearance: No Apparent Distress, WD/WN, Chronically ill, Obese HEENT: PERRL/EOMI, Normal ENT Inspection, Pharynx Normal, Moist Mucous Membranes Neck: Full Range of Motion, Normal Inspection, Non Tender Respiratory: Chest Non Tender, Lungs Clear, Normal Breath Sounds, No Accessory Muscle Use, No Respiratory Distress, Decreased Breath Sounds Cardiovascular: Regular Rate, Rhythm, No Edema, No Gallop, No JVD, No Murmur, Normal Peripheral Pulses Gastrointestinal: Normal Bowel Sounds, No Organomegaly, No Pulsatile Mass, Non Tender, Soft Back: Normal Inspection, No CVA Tenderness, No Vertebral Tenderness Extremity: Normal Capillary Refill, Normal Inspection, Normal Range of Motion, Non Tender, No Calf Tenderness, No Pedal Edema Neurologic/Psychiatric: Alert, Oriented x3, No Motor/Sensory Deficits, Normal Mood/Affect Skin: Normal Color, Warm/Dry Lymphatic: No Adenopathy Results/Procedures Lab Laboratory Tests 11/19/18 07:42 Patient resulted labs reviewed. Assessment/Plan Assessment and Plan Assess & Plan/Chief Complaint Assessment: Chest pain Foreign body of pulled pork lodged in esophagus likely the cause of the pressure ulcer like area in stomach upper esophagus on EGD per Dr Chaudhry CRF prev on dialysis HTN DM Plan: Dr Chaudhry and Dr Clark consultations are appreciated Monitor closely s/p EGD Cardiac cath today Monitor creatinine Diagnosis/Problems Diagnosis/Problems (1) Chest pain Status: Acute Qualifiers: Chest pain type: unspecified Qualified Codes: R07.9 - Chest pain, unspecified (2) Chronic kidney disease Status: Chronic Qualifiers: Chronic kidney disease stage: stage 5, not on chronic dialysis Qualified Codes: N18.5 - Chronic kidney disease, stage 5 (3) Esophageal obstruction Status: Resolved Resolution Date/Time: 11/19/18 @ 19:43 Clinical Quality Measures AMI/AHF: ASA po Prior to arrival: No DVT/VTE Risk/Contraindication: Risk Factor Score Per Nursin RFS Level Per Nursing on Admit: 3=High JACKELINE CEE DO Nov 19, 2018 09:41
[2018-11-19] MEDS ORDERED: 1/2 NS IV ONE ×2 (09:45→11:00)
[2018-11-19 09:51] LABS: BASOPHILS % (AUTO) 0 % (0-10); EOSINOPHILS # (AUTO) 0.1 10^3/uL (0.0-0.3); EOSINOPHILS % (AUTO) 1 % (0-10); HEMATOCRIT 38 % (40-54); HEMOGLOBIN 12.2 G/DL (13.3-17.7); LYMPHOCYTES # (AUTO) 1.7 X 10^3 (1.0-4.0); LYMPHOCYTES % (AUTO) 16 % (12-44); MEAN CORPUSCULAR HEMOGLOBIN 30 PG (25-34); MEAN CORPUSCULAR HGB CONC 32 G/DL (32-36); MEAN CORPUSCULAR VOLUME 93 FL (80-99); MEAN PLATELET VOLUME 9.7 FL (7.4-10.4); MONOCYTES # (AUTO) 0.8 X 10^3 (0.0-1.0); MONOCYTES % (AUTO) 8 % (0-12); NEUTROPHILS # (AUTO) 8.1 X 10^3 (1.8-7.8); NEUTROPHILS % (AUTO) 75 % (42-75); PLATELET COUNT 225 10^3/uL (130-400); RED CELL DISTRIBUTION WIDTH 14.8 % (10.0-14.5); WHITE BLOOD COUNT 10.8 10^3/uL (4.3-11.0)
[2018-11-19 10:09] LABS: ALBUMIN 3.6 GM/DL (3.2-4.5); BILIRUBIN,TOTAL 0.9 MG/DL (0.1-1.0); CREATININE SERUM 2.46 MG/DL (0.60-1.30); POTASSIUM 4.1 MMOL/L (3.6-5.0); TOTAL PROTEIN 6.6 GM/DL (6.4-8.2)
[2018-11-19] MEDS ORDERED: NS IV 1000 ML 1,000 ML ONE (12:14)
[2018-11-19] MEDS ORDERED: TICAGRELOR 90 MG TABLET (BRILINTA) PO ONE (12:50)
--- NOTE | 2018-11-19 13:26 | Coronary Angiography & PCI ---
Coronary Angiography & PCI DATE OF PROCEDURE: 11/19/18 INDICATION: Unstable angina. PREOPERATIVE DIAGNOSIS: Unstable angina. POSTOPERATIVE DIAGNOSIS: Severe proximal LAD stenosis treated successfully with a drug-eluting stent. 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 Also has history of diabetes and PAF on eliquis. He presented previously with prolonged episode of chest pain last year but refused coronary angiography. He presented again yesterday with prolonged episode of chest pain. Negative serial troponin however patient has high pre-test probability of CAD due to diabetes and CKD. Therefore, the patient was scheduled for coronary angiography. PROCEDURES PERFORMED: 1.Coronary angiography. 2.Left heart catheterization. 3.PCI to the proximal LAD with a drug-eluting stent. COMPLICATIONS: None. SPECIMENS: None. ESTIMATED BLOOD LOSS: 10 mL ANESTHESIA: Conscious sedation ANTICOAGULATION: IV heparin CONTRAST: 24 ml. FLUOROSCOPY: 10.8 minutes. FLOUROSCOPY DOSE: 992 mgy. PROCEDURE DETAILS: The patient is a 88 male and was brought to the industrial laborer after informed consent was taken. All the risks and complications were explained in detail; this included the risk of bleeding, vascular damage, stroke , GA and even . The patient was draped and prepped in the usual sterile fashion. Igor's test was abnormal, therefore, access was gained in the right femoral artery with a 5 [place] sheath. Coronary angiography and left heart catheterization was performed with JR4 and a JL4 catheter. FINDINGS: 1.Left main: Patent. 2.LAD: Severe proximal stenosis. Stenosis severity 80 percent. 3.Left circumflex artery: Patent with no significant disease. 4.RCA: Dominant artery with no significant disease. 5.Left heart catheterization: Aortic pressure 145/76 mmHg. LV pressure 143/17 mmHg. LVEDP 23 mmHg. No gradient across the aortic valve. LV gram was not done due to severe CKD. RECOMMENDATIONS: 1. PCI with drug-eluting stent is recommended to the proximal LAD. INTERVENTION DETAILS: JL4 guide catheter, BMW guidewire, IV heparin for anticoagulation. ACT was done once which was 217 seconds. The lesion in the proximal LAD was crossed with the BMW guidewire. Direct stenting was performed with a resolute integrity 3.0 x 26 mm drug-eluting stent at 16 stiven for 61 seconds. Excellent results with no residue stenosis. OMID-3 flow. Patient tolerated procedure well with no complications. Right femoral artery was closed with a mynx device. CONCLUSIONS: 1. Severe proximal LAD stenosis treated successfully with a drug-eluting stent. 2. Elevated LVEDP suggest diastolic dysfunction. 3. Check electrolytes and BUN and creatinine in the morning. 4. Dual antiplatelet therapy for one month, since the patient is on Eliquis, we will discontinue aspirin in a month and patient will continue on Eliquis and Brilinta. Mireille Clark MD, FACP, FACC, [facility] Interventional Cardiology Abner CLARK MD Nov 19, 2018 13:26
[2018-11-19] MEDS ORDERED: PATIENT MAY USE OWN MEDS, ALL PO SCH (13:30)
[2018-11-19] MEDS ORDERED: fentaNYL INJECTION 100 MCG/2 ML AMP IVP ONE (13:55)
--- NOTE | 2018-11-19 14:07 | Progress Note ---
Subjective Date Seen by a Provider: Nov 19, 2018 Time Seen by a Provider: 08:02 Subjective/Events-last exam Patient with no new complaints. Slightly sore throat. Able to swallow secretions. NPO. Chest pain a little better. Denies n/v fever sweats chills shortness of breath or chest pain. Going for cardiac cath today. Objective Exam Vital Signs Date Time Temp Pulse Resp B/P (MAP) Pulse Ox O2 Delivery O2 Flow Rate FiO2 11/19/18 13:00 85 11/19/18 12:00 96.0 90 20 193/88 (123) 94 Room Air 11/19/18 08:07 93 Nasal Cannula 2.00 11/19/18 08:00 Room Air 11/19/18 07:58 97.6 75 18 150/77 (101) 93 Room Air 11/19/18 07:00 73 11/19/18 03:57 98.0 88 18 145/77 (99) 94 Room Air 11/19/18 01:00 74 11/18/18 23:37 97.5 73 16 145/70 (95) 97 Room Air 11/18/18 20:00 Room Air 11/18/18 19:38 97.5 81 16 127/75 (92) 96 Room Air 11/18/18 19:23 76 11/18/18 16:22 68 98 21 11/18/18 15:52 96.9 76 18 157/83 (107) 96 Room Air 11/18/18 15:03 96 Room Air 11/18/18 15:03 74 18 133/71 (91) 96 Room Air 11/18/18 14:36 97.6 80 18 161/83 96 Room Air 11/18/18 14:23 80 16 159/99 (119) 97 I & O 11/19/18 07:00 Intake Total 1280 ml Balance 1280 ml Capillary Refill : Less Than 3 Seconds General Appearance: No Apparent Distress, WD/WN HEENT: PERRL/EOMI, Normal ENT Inspection Neck: Full Range of Motion, Normal Inspection, Non Tender Respiratory: Chest Non Tender, No Accessory Muscle Use, No Respiratory Distress Cardiovascular: Regular Rate, Rhythm Gastrointestinal: non tender, soft, no organomegaly Extremity: Normal Capillary Refill, Normal Inspection, Non Tender, No Pedal Edema Neurologic/Psychiatric: Alert, Oriented x3, No Motor/Sensory Deficits, Normal Mood/Affect Skin: Normal Color, Warm/Dry Lymphatic: No Adenopathy Results Lab Laboratory Tests 11/18/18 15:51: Glucometer 214H 11/18/18 18:00: Troponin I < 0.028 11/18/18 20:23: Glucometer 367H 11/19/18 05:49: Glucometer 147H 11/19/18 07:12: Myoglobin 123.6H, Triglycerides Level 154H, Cholesterol Level 126, LDL Cholesterol Direct 56, VLDL Cholesterol 31, HDL Cholesterol 44 11/19/18 07:42: White Blood Count 10.8, Red Blood Count 4.13L, Hemoglobin 12.2L, Hematocrit 38L , Mean Corpuscular Volume 93, Mean Corpuscular Hemoglobin 30, Mean Corpuscular Hemoglobin Concent 32, Red Cell Distribution Width 14.8H, Platelet Count 225, Mean Platelet Volume 9.7, Neutrophils (%) (Auto) 75, Lymphocytes (%) (Auto) 16, Monocytes (%) (Auto) 8, Eosinophils (%) (Auto) 1, Basophils (%) (Auto) 0, Neutrophils # (Auto) 8.1H, Lymphocytes # (Auto) 1.7, Monocytes # (Auto) 0.8, Eosinophils # (Auto) 0.1, Basophils # (Auto) 0.0, Sodium Level 139, Potassium Level 4.1, Chloride Level 107, Carbon Dioxide Level 20L, Anion Gap 12, Blood Urea Nitrogen 50H, Creatinine 2.46H, Estimat Glomerular Filtration Rate 25, BUN/ Creatinine Ratio 20, Glucose Level 136H, Calcium Level 9.0, Corrected Calcium 9.3, Total Bilirubin 0.9, Aspartate Amino Transf (AST/SGOT) 17, Alanine Aminotransferase (ALT/SGPT) 17, Alkaline Phosphatase 62, Total Protein 6.6, Albumin 3.6 11/19/18 11:04: Glucometer 106 Assessment/Plan Assessment/Plan Assessment/Plan chest pain dysphagia, likely due to superficial pressure necrosis of esophagus mcc anticoagulation esophagitis would keep on clear liquid diet carafate/protonix may need repeat endoscopy if symptoms worsens heart cath today will follow Clinical Quality Measures AMI/AHF: ASA po Prior to arrival: No DVT/VTE Risk/Contraindication: Risk Factor Score Per Nursin RFS Level Per Nursing on Admit: 3=High SILVERIO MONTILLA DO Nov 19, 2018 14:06
--- NOTE | 2018-11-19 14:29 | NUR ---
PT TRANSFERRED TO [facility] VIA BED W/ APPRENTICE MACHINIST OUTSIDE STAFF. PT A&O,VSS. RECEIVED REPORT FROM RACHEL JOLLEY. PT HAS RIGHT GROIN CATH SITE W/ SMALL AMT OF BLOOD ON DRESSING. SAND BAG OVER SITE, FAINT BRUISING NOTED TO RIGHT THIGH. SITE ASSESSED W/ RACHEL JOLLEY. RIGHT PEDAL PULSE WNL. CALL LIGHT W/IN REACH. WILL CONT TO MONITOR.
[2018-11-19] MEDS: NS IV 1000 ML 1,000 ML IV SCH ×2 (14:45→19:55)
--- NOTE | 2018-11-19 17:02 | NUR ---
PT TRANSFERRED TO [facility] VIA BED W/ STAFF/FAMILY. REPORT GIVEN TO MALACHI JOLLEY, NO QUESTIONS/CONCERNS VOICED.
[2018-11-19] MEDS ORDERED: RT-ALBUTEROL SULF 2.5 MG/3 ML PRE-MIX VIAL IH PRN (17:45)
[2018-11-19] MEDS ORDERED: ACETAMINOPHEN 500 MG TAB (TYLENOL) PO PRN (18:30)
[2018-11-19] MEDS ORDERED: BUMETANIDE 1 MG (BUMEX) TAB PO PRN (18:45)
[2018-11-19] MEDS: predniSONE 5 MG TAB PO SCH (20:41)
[2018-11-19] MEDS: inSUlin DETERMIR 1 UNIT/0.01 ML (LEVEMIR) CHARGE PER UNIT SQ SCH (20:42)
[2018-11-19] MEDS: TICAGRELOR 90 MG TABLET (BRILINTA) PO SCH (20:42)
[2018-11-19] MEDS: glipiZIDE 5 MG (GLUCOTROL) TAB PO SCH (20:42)
[2018-11-20] VITALS: BP 123/61
[2018-11-20 03:59] VITALS: BP 136/78
[2018-11-20 04:14] LABS: BASOPHILS % (AUTO) 0 % (0-10); EOSINOPHILS # (AUTO) 0.1 10^3/uL (0.0-0.3); EOSINOPHILS % (AUTO) 1 % (0-10); HEMATOCRIT 35 % (40-54); HEMOGLOBIN 10.7 G/DL (13.3-17.7); LYMPHOCYTES % (AUTO) 10 % (12-44); MEAN CORPUSCULAR HEMOGLOBIN 29 PG (25-34); MEAN CORPUSCULAR HGB CONC 31 G/DL (32-36); MEAN CORPUSCULAR VOLUME 93 FL (80-99); MEAN PLATELET VOLUME 9.1 FL (7.4-10.4); MONOCYTES # (AUTO) 0.7 X 10^3 (0.0-1.0); MONOCYTES % (AUTO) 8 % (0-12); NEUTROPHILS # (AUTO) 7.9 X 10^3 (1.8-7.8); NEUTROPHILS % (AUTO) 81 % (42-75); PLATELET COUNT 189 10^3/uL (130-400); RED CELL DISTRIBUTION WIDTH 14.6 % (10.0-14.5); WHITE BLOOD COUNT 9.7 10^3/uL (4.3-11.0)
[2018-11-20 04:34] LABS: ALBUMIN 3.1 GM/DL (3.2-4.5); BILIRUBIN,TOTAL 1.1 MG/DL (0.1-1.0); CALCIUM 8.2 MG/DL (8.5-10.1); CREATININE SERUM 2.14 MG/DL (0.60-1.30); POTASSIUM 4.7 MMOL/L (3.6-5.0); TOTAL PROTEIN 5.7 GM/DL (6.4-8.2)
[2018-11-20] MEDS: SUCRALFATE 1 GM (CARAFATE) TAB PO SCH ×4 (05:10→20:40)
[2018-11-20 08:01] VITALS: BP 160/79
[2018-11-20] MEDS: RT-ALBUTEROL SULF 2.5 MG/3 ML PRE-MIX VIAL INH SCH ×5 (09:33→19:18)
--- NOTE | 2018-11-20 10:32 | Progress Note-Hospitalist ---
Subjective HPI/CC On Admission Date Seen by Provider: Nov 20, 2018 Time Seen by Provider: 09:30 Chief Complaint: Chest pain. HPI: This is a clinic Pt of Eva Gottlieb at [facility] who has a history of HTN and chronic kidney disease. Pt sees Dr. Clark Nephrology on a regular basis and has been on dialysis for seventeen dialysis treatments but went off of dialysis in May, who presented to the ER with chest pain. Pt reports he went to the [employer] and had dinner and ate some pulled pork, which was terrible he reported, he felt like he could not get it dislodged out of his throat and currently feels like that after drinking a lot of fluid at home. He was found to be in need of cardiac risk stratification, in addtion I did speak with Dr. Chaudhry who will perform an EGD because I suspect there is still some pulled pork lodged in his esophagus. Creatinine was 3.0 and I did speak with Dr. Clark who spoke to his who is his test desk trouble locator and a minimal use of contrast will be used during the cardiac catheterization tomorrow. At this current time he reports his chest pain is on and off but does report it is coming from his throat to his upper chest. Subjective/Events-last exam Pt still not feeling well. Pt is overall very weak. Underwent cardiac catheterization last night with stent placement with extremely minimal contrast. Does not have home oxygen but requiring oxygen currently. Coarseness in the breath sounds noted so consulted Dr. Bocanegra and added nebulizer treatments. Will initiate PT and OT. Will do home oxygen evaluation. Restarted most of his home meds. Creat stable and actually improved Review of Systems General: Malaise Pulmonary: Dyspnea, Cough Objective Exam Vital Signs Vital Signs Date Time Temp Pulse Resp B/P (MAP) Pulse Ox O2 Delivery O2 Flow Rate FiO2 11/20/18 19:18 96 Room Air 11/20/18 19:00 100 11/20/18 15:54 98.8 20 133/65 (87) 11/20/18 09:33 2.00 11/18/18 16:22 21 Capillary Refill : Less Than 3 Seconds General Appearance: No Apparent Distress, WD/WN, Chronically ill, Obese HEENT: PERRL/EOMI, Normal ENT Inspection, Pharynx Normal, Moist Mucous Membranes Neck: Full Range of Motion, Normal Inspection, Non Tender Respiratory: Chest Non Tender, No Accessory Muscle Use, No Respiratory Distress , Crackles, Decreased Breath Sounds, Wheezing Cardiovascular: Regular Rate, Rhythm, No Edema, No Gallop, No JVD, No Murmur, Normal Peripheral Pulses Gastrointestinal: Normal Bowel Sounds, No Organomegaly, No Pulsatile Mass, Non Tender, Soft Back: Normal Inspection, No CVA Tenderness, No Vertebral Tenderness Extremity: Normal Capillary Refill, Normal Inspection, Normal Range of Motion, Non Tender, No Calf Tenderness, No Pedal Edema Neurologic/Psychiatric: Alert, Oriented x3, No Motor/Sensory Deficits, Normal Mood/Affect Skin: Normal Color, Warm/Dry Lymphatic: No Adenopathy Results/Procedures Lab Laboratory Tests 11/20/18 04:05 Patient resulted labs reviewed. Assessment/Plan Assessment and Plan Assess & Plan/Chief Complaint Assessment: Chest pain s/p cath with stent placement AECOPD consulting Dr Bocanegra Foreign body of pulled pork lodged in esophagus likely the cause of the pressure ulcer like area in stomach upper esophagus on EGD per Dr Chaudhry CRF prev on dialysis HTN DM Plan: Dr Chaudhry and Dr Clark consultations are appreciated Monitor closely s/p EGD Cardiac cath completed Monitor creatinine Appreciate Dr Clark and Dr Bocanegra Diagnosis/Problems Diagnosis/Problems (1) Chest pain Status: Resolved Qualifiers: Chest pain type: unspecified Qualified Codes: R07.9 - Chest pain, unspecified Resolution Date/Time: 11/20/18 @ 21:28 (2) Chronic kidney disease Status: Chronic Qualifiers: Chronic kidney disease stage: stage 5, not on chronic dialysis Qualified Codes: N18.5 - Chronic kidney disease, stage 5 (3) Esophageal obstruction Status: Resolved Resolution Date/Time: 11/19/18 @ 19:43 (4) CAD (coronary artery disease) Status: Chronic Qualifiers: Coronary Disease-Associated Artery/Lesion type: [place] artery [place] vs. transplanted heart: [place] heart Associated angina: with stable angina Qualified Codes: I25.118 - Atherosclerotic heart disease of [place] coronary artery with other forms of angina pectoris (5) Stented coronary artery Status: Acute (6) COPD with acute exacerbation Status: Acute Clinical Quality Measures AMI/AHF: ASA po Prior to arrival: No DVT/VTE Risk/Contraindication: Risk Factor Score Per Nursin RFS Level Per Nursing on Admit: 3=High CEE,JACKELINE DO Nov 20, 2018 10:32
[2018-11-20] MEDS: meTOproloL SUCCINATE 50 MG (TOPROL XL) TAB PO SCH (10:34)
[2018-11-20] MEDS: predniSONE 5 MG TAB PO SCH ×2 (10:35→20:41)
[2018-11-20] MEDS: NS IV 1000 ML 1,000 ML IV SCH ×2 (10:35→20:39)
[2018-11-20] MEDS: ASPIRIN E.C. 81 MG (ECOTRIN) TAB PO SCH (10:35)
[2018-11-20] MEDS: inSUlin DETERMIR 1 UNIT/0.01 ML (LEVEMIR) CHARGE PER UNIT SQ SCH ×2 (10:35→20:39)
[2018-11-20] MEDS: TAMSULOSIN 0.4 MG (FLOMAX) CAP PO SCH (10:35)
[2018-11-20] MEDS: PANTOPRAZOLE 40 MG (PROTONIX) VIAL IV SCH (10:35)
[2018-11-20] MEDS: TICAGRELOR 90 MG TABLET (BRILINTA) PO SCH ×2 (10:41→20:40)
[2018-11-20] MEDS: glipiZIDE 5 MG (GLUCOTROL) TAB PO SCH ×2 (10:41→20:40)
--- NOTE | 2018-11-20 11:04 | Cardiology Progress Note ---
Cardiology SOAP Progress Note Subjective: No chest pain. Objective: I&O/Vital Signs 11/20/18 11/20/18 11/20/18 11/20/18 00:00 01:00 03:59 07:00 Temp 97.3 98.0 Pulse 83 98 92 88 Resp 20 18 B/P (MAP) 123/61 (81) 136/78 (97) Pulse Ox 98 98 O2 Delivery Nasal Cannula Nasal Cannula O2 Flow Rate 2.50 2.50 2.50 11/20/18 11/20/18 08:01 09:33 Temp 97.0 Pulse 87 Resp 22 B/P (MAP) 160/79 (106) Pulse Ox 96 95 O2 Delivery Nasal Cannula Nasal Cannula O2 Flow Rate 2.50 2.00 11/20/18 00:00 Intake Total 750 ml Output Total 250 ml Balance 500 ml Weight (Pounds): 212 Weight (Ounces): 1.0 Weight (Calculated Kilograms): [id number] Constitutional: appears stated age, AAO x 3, well-developed, well-nourished Respiratory: chest is bilaterally symmetric, lungs clear to auscultation Cardiovascular: regular rate-rhythm, S1 and S2 Gastrointestional: No tender, No soft, No round, No distended, No pulsatile mass, No organomegaly, No guarding, No rebound, No tenderness, No hernia, No mass, No audible bowel sounds, No abnormal bowel sounds, No abdominal bruits, No spleenomegaly, No other Extremities: No normal range of motion, No non-tender, No normal inspection, No pedal edema, No calf tenderness, No normal capillary refill, No pelvis stable , No calf tenderness, No inflammation, No pedal edema, No slow capillary refill , No swelling, No other, No abrasion, No clubbing, No cyanosis, No ecchymosis, No laceration, No no lower extremity edema bilateral, No significant edema, No tenderness, No wound Neurologic/Psychiatric: no motor/sensory deficits, alert, normal mood/affect, oriented x 3, power is 5/5 both on sides Skin: No normal color, No warm/dry, No cyanosis, No cool, No diaphoresis, No damp, No ecchymosis, No jaundice, No mottled, No pallor, No rash, No tattoos/ piercings, No ulcerations, No rash on exposed areas, No ulcerations on exposed areas, No other Results/Procedures: Labs Laboratory Tests 11/19/18 11:04: Glucometer 106 11/19/18 17:14: Glucometer 131H 11/19/18 20:22: Glucometer 224H 11/20/18 04:05: White Blood Count 9.7, Red Blood Count 3.71L, Hemoglobin 10.7L, Hematocrit 35L, Mean Corpuscular Volume 93, Mean Corpuscular Hemoglobin 29, Mean Corpuscular Hemoglobin Concent 31L, Red Cell Distribution Width 14.6H, Platelet Count 189, Mean Platelet Volume 9.1, Neutrophils (%) (Auto) 81H, Lymphocytes (%) (Auto) 10L , Monocytes (%) (Auto) 8, Eosinophils (%) (Auto) 1, Basophils (%) (Auto) 0, Neutrophils # (Auto) 7.9H, Lymphocytes # (Auto) 1.0, Monocytes # (Auto) 0.7, Eosinophils # (Auto) 0.1, Basophils # (Auto) 0.0, Sodium Level 140, Potassium Level 4.7, Chloride Level 112H, Carbon Dioxide Level 20L, Anion Gap 8, Blood Urea Nitrogen 34H, Creatinine 2.14H, Estimat Glomerular Filtration Rate 29, BUN/ Creatinine Ratio 16, Glucose Level 178H, Calcium Level 8.2L, Corrected Calcium 8.9, Total Bilirubin 1.1H, Aspartate Amino Transf (AST/SGOT) 17, Alanine Aminotransferase (ALT/SGPT) 15, Alkaline Phosphatase 56, Total Protein 5.7L, Albumin 3.1L A/P: Assessment/Dx: Unstable angina, Shortness of breath, Paroxysmal atrial fibrillation, Chronic kidney disease stage IV, Diabetes. Plan: He has history of end-stage renal disease and was on dialysis, but has been taken off dialysis. He had an episode of paroxysmal atrial fibrillation and was started on Eliquis and flecainide at that point in time. He also has history of rheumatoid arthritis and takes prednisone. He has history of diabetes. He had a previous admission in [facility] for chest pain. Serial troponin were negative. EKG did not reveal any acute ST-T wave abnormalities. Coronary angiography was recommended however the patient refused. 1. Chest pain: Prolonged episode of chest pain. Patient has significant risk factors for CAD including diabetes and end-stage chronic kidney disease. This is likely unstable angina. Coronary angiography done on 11/19/2018 which showed severe proximal LAD stenosis treated successfully with one drug-eluting stent with excellent results. Dual antiplatelet therapy for at least a month, after one month patient to continue Brilinta or Plavix and Eliquis chcf. Stress test was done in [facility] on 03/05/2018 which showed no inducible ischemia or infarction. Echocardiogram done on 03/04/2018 at [facility] showed mild concentric LVH with diastolic interventional septal diameter of 1.1 cm. EF 70 percent. No valvular heart disease. 2. Shortness of breath: Normal BNP. Unlikely to be significant congestive heart failure. We will repeat an echocardiogram. Peripheral edema. No significant crackles. Normal LV function on echocardiogram done on 03/04/2018 with mild concentric LVH.. Continue Bumex. 3. Paroxysmal atrial fibrillation: One episode of atrial fibrillation according to the history. Continue low dose Eliquis and metoprolol. Flecainide discontinued previously. 4. Hypertension: Continue metoprolol. Well controlled. 5. End-stage renal disease: Follows nephrology as an outpatient. Generous IV fluids before and after the procedure. However, cautious fluids from now on. Creatinine did not worsen after coronary angiography and PCI yesterday. Only 24 mL of contrast was used. 6. Esophageal disease: Dr. Chaudhry and Dr. Wilde is following. Thank you for your consultation. Please call me if you have any questions. Mireille Clark MD, FACP, FACC, FSCAI, FHRS, CCDS Interventional Cardiology Cardiac Electrophysiology Vascular Medicine and Endovascular Interventions Clinical Quality Measures AMI/AHF: ASA po Prior to arrival: Abner Nolasco MD Nov 20, 2018 11:04 am
--- NOTE | 2018-11-20 12:07 | Pulmonary Consultation ---
History of Present Illness History of Present Illness Date of Consultation 11/20/18 12:02 Time Seen by Provider: 12:10 Date of Admission History of Present Illness 88yo presented to ED secondary to central chest pain that started at rest 9am the day of admission. PT also complained of worsening SOB. Pt was taken off of HD 4days prior to admission. Pt is on Eliquis for Afib. Pt complains of persistent nonproductive cough. Quit smoking 50yrs ago Allergies and Home Medications Allergies Coded Allergies: No Known Drug Allergies (Verified , 11/18/18) Home Medications Acetaminophen 650 Mg Tablet.er, 1,300 MG PO DAILY PRN for PAIN-MILD, (Reported) Albuterol Sulfate 2.5 Mg/3 Ml Vial.neb, 2.5 MG NEB TID PRN for SHORTNESS OF BREATH, (Reported) Apixaban 2.5 Mg Tablet, 2.5 MG PO BID, (Reported) Bumetanide 2 Mg Tablet, 2 MG PO DAILY PRN for SWELLING, (Reported) Calcitriol 0.25 Mcg Capsule, 0.25 MCG PO MoWeFr, (Reported) Clindamycin HCl 300 Mg Capsule, 300 MG PO Q8H, (Reported) 10 DAY SUPPLY FILLED 11-12-18 Glipizide 5 Mg Tablet, 5 MG PO BID, (Reported) Insulin Detemir 100 Unit/1 Ml Insuln.pen, 20 UNIT SQ BID, (Reported) Metoprolol Succinate 50 Mg Tab.er.24h, 50 MG PO DAILY, (Reported) Prednisone 5 Mg Tablet, 5 MG PO BID, (Reported) Tamsulosin HCl 0.4 Mg Cap.er.24h, 0.4 MG PO DAILY, (Reported) Past Uvtbxmm-Asafey-Swjlhc Hx Past Med/Social Hx: Reviewed Nursing Past Med/Soc Hx, Reviewed and Corrections made Patient Social History Alcohol Use: Denies Use Number of Drinks Today: AA Alcohol Beverage of Choice: Beer Recreational Drug Use: No Smoking Status: Former Smoker Type Used: Cigars, Cigarettes Former Smoker, Quit: Apr 01, 1978 Recent Foreign Travel: No Contact w/Someone Who Travel: No Recent Infectious Disease Expo: No Recent Hopitalizations: Yes Physical Abuse: No Sexual Abuse: No Mistreated: No Fear: No Immunizations Up To Date PED Vaccines UTD: No Date of Pneumonia Vaccine: Jun 22, 2014 Date of Influenza Vaccine: Jul 06, 2018 Seasonal Allergies Seasonal Allergies: No Past Medical History Surgeries: Yes (hernia, dialysis shunt in left arm, umbilical hernia repair, ) Coronary Stent, Orthopedic Respiratory: No Currently Using CPAP: No Currently Using BIPAP: No Cardiac: Yes Hypertension Neurological: No Genitourinary: No (stopped dialysis 6 months ago) Benign Prostatic Hyperpl, Kidney Infection, Renal Failure, Dialysis Gastrointestinal: Yes Abdominal Hernia, Gastroesophageal Reflux Musculoskeletal: Yes Arthritis, Rheumatoid Arthritis Endocrine: Yes Diabetes, Non-Insulin dep HEENT: Yes Macular Degeneration Cancer: No Psychosocial: No Integumentary: Yes Psoriasis Blood Disorders: No Adverse Reaction/Blood Tranf: No Family Medical History Reviewed Nursing Family Hx Diabetes mellitus 19 MOTHER G8 BROTHER FH: pancreatic cancer 19 FATHER Diabetes Review of Systems Time Seen by Provider: 12:10 Sepsis Event Evaluation Height, Weight, BMI Height: 5'7.00" Weight: 212lbs. 1.0oz. 96.720501ht; 33.2 BMI Method:Stated Exam Exam Vital Signs Date Time Temp Pulse Resp B/P (MAP) Pulse Ox O2 Delivery O2 Flow Rate FiO2 11/20/18 09:33 95 Nasal Cannula 2.00 11/20/18 08:01 97.0 87 22 160/79 (106) 96 Nasal Cannula 2.50 11/20/18 07:00 88 11/20/18 03:59 98.0 92 18 136/78 (97) 98 Nasal Cannula 2.50 11/20/18 01:00 98 11/20/18 00:00 97.3 83 20 123/61 (81) 98 Nasal Cannula 2.50 2.50 11/19/18 20:15 97.4 98 20 143/65 (91) 98 Nasal Cannula 2.50 11/19/18 20:05 98 Nasal Cannula 2.00 11/19/18 20:00 Room Air 11/19/18 19:15 97.9 97 20 154/72 (99) 96 Room Air 11/19/18 19:00 112 11/19/18 18:15 97.6 91 20 140/78 (98) 96 Room Air 11/19/18 17:15 97.2 86 20 151/109 (123) 96 Room Air 11/19/18 15:33 96.0 11/19/18 14:33 96.4 74 16 154/76 (102) 97 Room Air 11/19/18 13:00 85 I & O 11/20/18 07:00 Intake Total 2050 ml Output Total 550 ml Balance 1500 ml Height & Weight Height: 5'7.00" Weight: 212lbs. 1.0oz. 96.563563pa; 33.2 BMI Method:Stated General Appearance: No Apparent Distress, WD/WN, Chronically ill, Obese HEENT: PERRL/EOMI, Normal ENT Inspection, Pharynx Normal, Moist Mucous Membranes Neck: Full Range of Motion, Normal Inspection, Non Tender Respiratory: Chest Non Tender, Lungs Clear, Normal Breath Sounds, No Accessory Muscle Use, No Respiratory Distress, Decreased Breath Sounds Cardiovascular: Regular Rate, Rhythm, No Edema, No Gallop, No JVD, No Murmur, Normal Peripheral Pulses Capillary Refill: Less Than 3 Seconds Gastrointestinal: non tender, soft, no organomegaly Extremity: Normal Capillary Refill, Normal Inspection, Normal Range of Motion, Non Tender, No Calf Tenderness, No Pedal Edema Neurologic/Psychiatric: Alert, Oriented x3, No Motor/Sensory Deficits, Normal Mood/Affect Skin: Normal Color, Warm/Dry Lymphatic: No Adenopathy Results Lab Laboratory Tests 11/19/18 07:42 11/20/18 04:05 Assessment/Plan Assessment/Plan SOB with hypoxia -CT chest shows no acute process -Check ABG -SVNs -Oxygen Acute CP/Unstable angina -Cardiology following Cough nonproductive -Add Singulair and Claritin Anemia -Monitor CKD stage IV- hx of needing HD DM paroxysmal Afib -LORNA Moss DO Nov 20, 2018 12:07
--- NOTE | 2018-11-20 14:18 | NUR ---
PATIENT HAD BEEN ON RA FOR ATLEAST 60 MINS AND SAT DID NOT DROP! PATIENT WALKED AND DID EXERCISES WITH PT AND RT AND DID NOT DROP BELOW 92%.
--- NOTE | 2018-11-20 14:41 | Physical Therapy Evaluation ---
PT Evaluation-General Medical Diagnosis Admission Date Nov 20, 2018 at 13:32 Medical Diagnosis: weakness Onset Date: Nov 18, 2018 Therapy Diagnosis Therapy Diagnosis: impaired mobility, strength, endurance Height/Weight Height (Feet): 5 Height (Inches): 7.00 Weight (Pounds): 212 Weight (Ounces): 1.0 Precautions Precautions/Isolations: Standard Precautions Referral Physician: Trixie Wilde DO Reason for Referral: Evaluation/Treatment Medical History Additional Medical History Past Medical History Surgeries: Yes (hernia, dialysis shunt in left arm, umbilical hernia repair, ) Coronary Stent, Orthopedic Respiratory: No Currently Using CPAP: No Currently Using BIPAP: No Cardiac: Yes Hypertension Neurological: No Genitourinary: No (stopped dialysis 6 months ago) Benign Prostatic Hyperpl, Kidney Infection, Renal Failure, Dialysis Gastrointestinal: Yes Abdominal Hernia, Gastroesophageal Reflux Musculoskeletal: Yes Arthritis, Rheumatoid Arthritis Endocrine: Yes Diabetes, Non-Insulin dep HEENT: Yes Macular Degeneration Cancer: No Psychosocial: No Integumentary: Yes Psoriasis Current History went to ER with chest pain Reviewed History: Yes Social History Home: Apartment Current Living Status: Alone Entry Into Home: Level Entry Prior/Core FIM Prior Level of Function Therapy Code Descriptions/Definitions Functional [place] Measure: 0=Not Assessed/NA 4=Minimal Assistance 1=Total Assistance 5=Supervision or Setup 2=Maximal Assistance 6=Modified [place] 3=Moderate Assistance 7=Complete [place] Therapy Quality Codes: 6 Independent with activity with or without an assistive device 5 Patient requires set up or clean up by helper. Patient completes activity by themselves 4 Supervision or touching assist (CGA). [place] provide cues , steadying assist 3 The helper provides less than half the effort to complete the activity 2 The helper provides more than half the effort to complete the activity 1 Dependent. The helper does all the effort to complete an activity 7 Patient refused to complete or attempt activity 9 The patient did not perform the activity before the current illness or injury 88 Not attempted due to Medical conditions or safety concerns Functional Abilities and Goals: Independent: Patient completed the activities by him/herself, with or without an assistive device, with no assistance from a helper. Needed Some Help: Patient needed partial assistance from another person to complete activities. Dependent: A helper completed the activities for the patient. Unknown: Not Applicable: Bed Mobility: 6 Transfers (B,C,W/C) (FIM): 6 Gait: 6 Indoor Mobility (Ambulation): Independent Stairs: Independent Patient states he used both a single point cane and 4-wheeled walker PT Evaluation-Current Subjective Patient in bed pre tx, agrees to PT, has unrated pain in right leg due to cath. RT here to monitor O2 during ambulation. Pt/Family Goals "to get stronger" Objective Patient Orientation: Person, Place, Situation ROM/Strength ROM Lower Extremities LLE WNL, RLE NT due to pain Strength Lower Extremities LLE gross 4+/5, RLE NT due to pain Neuromuscular (Tone, Coordination, Reflexes) NT Sensory Vision: Wears Glasses Hearing: Functional Sensation Right Lower Extremit: Intact Sensation Left Lower Extremity: Intact Transfers Therapy Code Descriptions/Definitions Functional [place] Measure: 0=Not Assessed/NA 4=Minimal Assistance 1=Total Assistance 5=Supervision or Setup 2=Maximal Assistance 6=Modified [place] 3=Moderate Assistance 7=Complete [place] Transfers (B, C, W/C) (FIM): 5 Scootin Rollin Supine to/from Sit: 5 Sit to/from Stand: 5 Gait Mode of Locomotion: Walk Anticipated Mode of Locomotion: Walk Gait (FIM): 1 Distance: 20' Gait Level of Assist: 5 Gait Persons Needed: 1 Gait Assistive Device: FWW Comments/Gait Description Patient's O2 sat stayed above 90%, gait was slow and antalgic Balance Sitting Static: Normal Sitting Dynamic: Normal Standing Static: Good Standing Dynamic: Good Treatment seated exercises BLE x15 (AP, LAQ) Assessment/Needs Patient has impaired mobility, strength, endurance post heart cath, he is having pain in right leg but is ambulatory Rehab Potential: Fair PT Short Term Goals Short Term Goals Time Frame: Nov 27, 2018 Transfers (B,C,W/C) (FIM): 6 Gait (FIM): 6 Gait Distance Comment: 150' Gait Level of Assist: 6 Gait Assistive Device: FWW PT Plan Problem List Problem List: Activity Tolerance, Functional Strength, Safety, Balance, Gait, Transfer, Bed Mobility, ROM Treatment/Plan Treatment Plan: Continue Plan of Care Treatment Plan: Bed Mobility, Education, Functional Activity Jason, Functional Strength, Gait, Safety, Therapeutic Exercise, Transfers Treatment Duration: Nov 27, 2018 Frequency: 6 times per week Estimated Hrs Per Day: .25 hour per day (15-30') Patient and/or Family Agrees t: Yes Safety Risks/Education Patient Education: Gait Training, Transfer Techniques, Correct Positioning, Safety Issues Teaching Recipient: Patient Teaching Methods: Demonstration, Discussion Response to Teaching: Reinforcement Needed Discharge Recommendations Plan Patient will perform bed mobility and transfer training, balance and endurance training, functional strengthening, stair training, gait training, and education , to improve functional mobility and independence at home. Therapy D/C Recommendations: Assisted Living, Home w/ Family Support Time/GCodes Time In: 1415 Time Out: 1430 Total Billed Treatment Time: 15 Total Billed Treatment 1 visit MARY 15' STEPHEN CLEARY PT Nov 20, 2018 14:41
[2018-11-20 15:54] VITALS: BP 133/65
--- NOTE | 2018-11-20 16:23 | Progress Note ---
Subjective Date Seen by a Provider: Nov 20, 2018 Time Seen by a Provider: 08:10 Subjective/Events-last exam No chest pain. Swallowing better. No new complaints. Denies n/v fever sweats chills shortness of breath or chest pain. Tolerating liquid diet. Objective Exam Vital Signs Date Time Temp Pulse Resp B/P (MAP) Pulse Ox O2 Delivery O2 Flow Rate FiO2 11/20/18 15:54 98.8 94 20 133/65 (87) 95 Room Air 11/20/18 14:27 96 Room Air 11/20/18 13:00 82 11/20/18 09:33 95 Nasal Cannula 2.00 11/20/18 08:01 97.0 87 22 160/79 (106) 96 Nasal Cannula 2.50 11/20/18 07:00 88 11/20/18 03:59 98.0 92 18 136/78 (97) 98 Nasal Cannula 2.50 11/20/18 01:00 98 11/20/18 00:00 97.3 83 20 123/61 (81) 98 Nasal Cannula 2.50 2.50 11/19/18 20:15 97.4 98 20 143/65 (91) 98 Nasal Cannula 2.50 11/19/18 20:05 98 Nasal Cannula 2.00 11/19/18 20:00 Room Air 11/19/18 19:15 97.9 97 20 154/72 (99) 96 Room Air 11/19/18 19:00 112 11/19/18 18:15 97.6 91 20 140/78 (98) 96 Room Air 11/19/18 17:15 97.2 86 20 151/109 (123) 96 Room Air I & O 11/20/18 07:00 Intake Total 2050 ml Output Total 550 ml Balance 1500 ml Capillary Refill : Less Than 3 Seconds General Appearance: No Apparent Distress, WD/WN, Chronically ill, Obese HEENT: PERRL/EOMI, Normal ENT Inspection, Pharynx Normal, Moist Mucous Membranes Neck: Full Range of Motion, Normal Inspection, Non Tender Respiratory: Chest Non Tender, No Accessory Muscle Use, No Respiratory Distress , Decreased Breath Sounds Cardiovascular: Regular Rate, Rhythm, No Edema, No Gallop, No JVD, No Murmur, Normal Peripheral Pulses Gastrointestinal: non tender, soft, no organomegaly Extremity: Normal Capillary Refill, Normal Inspection, Non Tender, No Pedal Edema Neurologic/Psychiatric: Alert, Oriented x3, No Motor/Sensory Deficits, Normal Mood/Affect Skin: Normal Color, Warm/Dry Lymphatic: No Adenopathy Results Lab Laboratory Tests 11/19/18 17:14: Glucometer 131H 11/19/18 20:22: Glucometer 224H 11/20/18 04:05: White Blood Count 9.7, Red Blood Count 3.71L, Hemoglobin 10.7L, Hematocrit 35L, Mean Corpuscular Volume 93, Mean Corpuscular Hemoglobin 29, Mean Corpuscular Hemoglobin Concent 31L, Red Cell Distribution Width 14.6H, Platelet Count 189, Mean Platelet Volume 9.1, Neutrophils (%) (Auto) 81H, Lymphocytes (%) (Auto) 10L , Monocytes (%) (Auto) 8, Eosinophils (%) (Auto) 1, Basophils (%) (Auto) 0, Neutrophils # (Auto) 7.9H, Lymphocytes # (Auto) 1.0, Monocytes # (Auto) 0.7, Eosinophils # (Auto) 0.1, Basophils # (Auto) 0.0, Sodium Level 140, Potassium Level 4.7, Chloride Level 112H, Carbon Dioxide Level 20L, Anion Gap 8, Blood Urea Nitrogen 34H, Creatinine 2.14H, Estimat Glomerular Filtration Rate 29, BUN/ Creatinine Ratio 16, Glucose Level 178H, Calcium Level 8.2L, Corrected Calcium 8.9, Total Bilirubin 1.1H, Aspartate Amino Transf (AST/SGOT) 17, Alanine Aminotransferase (ALT/SGPT) 15, Alkaline Phosphatase 56, Total Protein 5.7L, Albumin 3.1L 11/20/18 11:29: Glucometer 265H 11/20/18 15:57: Glucometer 197H Assessment/Plan Assessment/Plan Assessment/Plan chest pain s/p cardiac intervention dysphagia, likely due to superficial pressure necrosis of esophagus hay buckler anticoagulation esophagitis would keep on clear liquid diet carafate/protonix may need repeat endoscopy if symptoms worsens will follow Clinical Quality Measures AMI/AHF: ASA po Prior to arrival: No DVT/VTE Risk/Contraindication: Risk Factor Score Per Nursin RFS Level Per Nursing on Admit: 3=High SILVERIO MONTILLA DO Nov 20, 2018 16:23
[2018-11-20] MEDS: APIXABAN 2.5 MG (ELIQUIS) TABLET PO SCH ×2 (16:57→20:40)
[2018-11-20] MEDS ORDERED: CALCITRIOL 0.25 MCG (ROCALTROL) CAPSULE PO SCH (17:45)
[2018-11-20 20:00] VITALS: BP 151/72
[2018-11-20] MEDS: MONTELUKAST 10 MG (SINGULAIR) TAB PO SCH (20:40)
[2018-11-20] MEDS: ATORVASTATIN 10 MG (LIPITOR) TABLET PO SCH (20:40)
[2018-11-20 23:15] VITALS: BP 162/88
[2018-11-21 04:10] VITALS: BP 121/69
[2018-11-21 04:13] LABS: BASOPHILS % (AUTO) 0 % (0-10); EOSINOPHILS # (AUTO) 0.1 10^3/uL (0.0-0.3); EOSINOPHILS % (AUTO) 1 % (0-10); HEMATOCRIT 31 % (40-54); HEMOGLOBIN 9.7 G/DL (13.3-17.7); LYMPHOCYTES # (AUTO) 0.7 X 10^3 (1.0-4.0); LYMPHOCYTES % (AUTO) 8 % (12-44); MEAN CORPUSCULAR HEMOGLOBIN 29 PG (25-34); MEAN CORPUSCULAR HGB CONC 32 G/DL (32-36); MEAN CORPUSCULAR VOLUME 93 FL (80-99); MEAN PLATELET VOLUME 9.6 FL (7.4-10.4); MONOCYTES # (AUTO) 0.6 X 10^3 (0.0-1.0); MONOCYTES % (AUTO) 7 % (0-12); NEUTROPHILS % (AUTO) 85 % (42-75); PLATELET COUNT 172 10^3/uL (130-400); RED CELL DISTRIBUTION WIDTH 14.9 % (10.0-14.5); WHITE BLOOD COUNT 8.3 10^3/uL (4.3-11.0)
[2018-11-21 04:35] LABS: ALBUMIN 3.2 GM/DL (3.2-4.5); CALCIUM 8.6 MG/DL (8.5-10.1); CREATININE SERUM 2.03 MG/DL (0.60-1.30); POTASSIUM 4.2 MMOL/L (3.6-5.0); TOTAL PROTEIN 5.6 GM/DL (6.4-8.2)
[2018-11-21] MEDS: NS IV 1000 ML 1,000 ML IV SCH (06:18)
[2018-11-21] MEDS: SUCRALFATE 1 GM (CARAFATE) TAB PO SCH ×4 (06:19→20:22)
--- NOTE | 2018-11-21 07:20 | Pulmonary Progress Note ---
Sepsis Event Evaluation Height, Weight, BMI Height: 5'7.00" Weight: 212lbs. 1.0oz. 96.449290lm; 33.2 BMI Method:Stated Exam Exam Vital Signs Date Time Temp Pulse Resp B/P (MAP) Pulse Ox O2 Delivery O2 Flow Rate FiO2 11/21/18 04:10 98.4 90 18 121/69 (86) 96 Room Air 11/21/18 01:00 100 11/20/18 23:15 98.2 95 18 162/88 (112) 100 Room Air 11/20/18 20:00 Room Air 11/20/18 20:00 98.3 95 22 151/72 (98) 95 Room Air 11/20/18 19:18 96 Room Air 11/20/18 19:00 100 11/20/18 15:54 98.8 94 20 133/65 (87) 95 Room Air 11/20/18 14:27 96 Room Air 11/20/18 13:00 82 11/20/18 09:33 95 Nasal Cannula 2.00 11/20/18 08:01 97.0 87 22 160/79 (106) 96 Nasal Cannula 2.50 I & O 11/21/18 07:00 Intake Total 1990 ml Output Total 1350 ml Balance 640 ml Height & Weight Height: 5'7.00" Weight: 212lbs. 1.0oz. 96.591163eu; 33.2 BMI Method:Stated General Appearance: No Apparent Distress, WD/WN, Chronically ill, Obese HEENT: PERRL/EOMI, Normal ENT Inspection, Pharynx Normal, Moist Mucous Membranes Neck: Full Range of Motion, Normal Inspection, Non Tender Respiratory: Chest Non Tender, No Accessory Muscle Use, No Respiratory Distress , Crackles, Decreased Breath Sounds, Wheezing Cardiovascular: Regular Rate, Rhythm, No Edema, No Gallop, No JVD, No Murmur, Normal Peripheral Pulses Capillary Refill: Less Than 3 Seconds Gastrointestinal: non tender, soft, no organomegaly Extremity: Normal Capillary Refill, Normal Inspection, Normal Range of Motion, Non Tender, No Calf Tenderness, No Pedal Edema Neurologic/Psychiatric: Alert, Oriented x3, No Motor/Sensory Deficits, Normal Mood/Affect Skin: Normal Color, Warm/Dry Lymphatic: No Adenopathy Results Lab Laboratory Tests 11/19/18 07:42 11/20/18 04:05 11/21/18 03:25 Assessment/Plan Assessment/Plan SOB with hypoxia -CT chest shows no acute process -SVNs -Oxygen Esophageal obstruction s/p EGD Acute CP/Unstable angina -Cardiology following Cough nonproductive -Add Singulair and Claritin Anemia -Monitor CKD stage IV- hx of needing HD DM paroxysmal Afib -LORNA Moss DO Nov 21, 2018 07:20
[2018-11-21 08:00] VITALS: BP 146/75
[2018-11-21] MEDS: RT-ALBUTEROL SULF 2.5 MG/3 ML PRE-MIX VIAL INH SCH ×3 (08:14→19:36)
[2018-11-21] MEDS: PANTOPRAZOLE 40 MG (PROTONIX) VIAL IV SCH (08:15)
[2018-11-21] MEDS: TICAGRELOR 90 MG TABLET (BRILINTA) PO SCH ×2 (08:15→20:22)
[2018-11-21] MEDS: ASPIRIN E.C. 81 MG (ECOTRIN) TAB PO SCH (08:15)
[2018-11-21] MEDS: meTOproloL SUCCINATE 50 MG (TOPROL XL) TAB PO SCH (08:15)
[2018-11-21] MEDS: glipiZIDE 5 MG (GLUCOTROL) TAB PO SCH ×2 (08:15→20:28)
[2018-11-21] MEDS: predniSONE 5 MG TAB PO SCH ×2 (08:15→20:22)
[2018-11-21] MEDS: TAMSULOSIN 0.4 MG (FLOMAX) CAP PO SCH (08:16)
[2018-11-21] MEDS: LORATADINE (CLARITIN) 10 MG TAB PO SCH (08:16)
[2018-11-21] MEDS: inSUlin DETERMIR 1 UNIT/0.01 ML (LEVEMIR) CHARGE PER UNIT SQ SCH ×2 (08:17→20:42)
[2018-11-21] MEDS: APIXABAN 2.5 MG (ELIQUIS) TABLET PO SCH ×2 (08:18→20:22)
--- NOTE | 2018-11-21 10:32 | Physical Therapy Daily Note ---
PT Daily Note-Current Subjective Patient in bed pre tx, agrees to PT reluctantly, refuses to do any exercises but states he will ambulate. Patient has no complaints of pain but has weakness in right leg. Appearance Patient in recliner post tx with nurse call, phone, tray, all needs met. Mental Status Patient Orientation: Person, Place, Situation Transfers Therapy Code Descriptions/Definitions Functional [place] Measure: 0=Not Assessed/NA 4=Minimal Assistance 1=Total Assistance 5=Supervision or Setup 2=Maximal Assistance 6=Modified [place] 3=Moderate Assistance 7=Complete [place] Therapy Quality Codes: 6 Independent with activity with or without an assistive device 5 Patient requires set up or clean up by helper. Patient completes activity by themselves 4 Supervision or touching assist (CGA). [place] provide cues , steadying assist 3 The helper provides less than half the effort to complete the activity 2 The helper provides more than half the effort to complete the activity 1 Dependent. The helper does all the effort to complete an activity 7 Patient refused to complete or attempt activity 9 The patient did not perform the activity before the current illness or injury 88 Not attempted due to Medical conditions or safety concerns Transfers (B, C, W/C) (FIM): 5 Scootin Rollin Supine to/from Sit: 5 Sit to/from Stand: 5 Bed to/from Chair: 5 Patient has some difficulty with sit to stand but can do it without assist. Gait Training Gait (FIM): 2 Distance: 100' Gait Level of Assist: 5 Gait Persons Needed: 1 Gait Assistive Device: FWW Very slow ambulation, patient feels like he cannot bear weight on his right leg but he appears to. Leans heavily on his arms. Needed several standing rest breaks. Treatments bed mobility and transfers, ambulation Assessment Current Status: Fair Progress improving ambulation PT Short Term Goals Short Term Goals Time Frame: Nov 27, 2018 Transfers (B,C,W/C) (FIM): 6 Gait (FIM): 6 Gait Distance Comment: 150' Gait Level of Assist: 6 Gait Assistive Device: FWW PT Plan Problem List Problem List: Activity Tolerance, Functional Strength, Safety, Balance, Gait, Transfer, Bed Mobility Treatment/Plan Treatment Plan: Continue Plan of Care Treatment Plan: Bed Mobility, Education, Functional Activity Jason, Functional Strength, Gait, Safety, Therapeutic Exercise, Transfers Treatment Duration: Nov 27, 2018 Frequency: 6 times per week Estimated Hrs Per Day: .25 hour per day (15-30') Patient and/or Family Agrees t: Yes Safety Risks/Education Patient Education: Gait Training, Transfer Techniques, Correct Positioning, Safety Issues Teaching Recipient: Patient Teaching Methods: Demonstration, Discussion Response to Teaching: Reinforcement Needed Time/GCodes Time In: 1012 Time Out: 1028 Total Billed Treatment Time: 15 Total Billed Treatment 1 visit GT 15' STEPHEN CLEARY PT Nov 21, 2018 10:32
--- NOTE | 2018-11-21 11:19 | Progress Note ---
Subjective Time Seen by a Provider: 10:48 Subjective/Events-last exam Pt seen and examined, states "I don't feel good". He states he can still feel "lump" in throat. He also states he is hungry and wants to get more food. He thinks he has some "acid reflux" and blames everything on the dinner of pulled pork he ate. He states he is ambulating. He denies throat pain and abdominal pain; did state he has pain at cardiac cath site. Review of Systems General: No Chills, No Night Sweats HEENT: No Head Aches, No Visual Changes Pulmonary: No Dyspnea, No Cough Cardiovascular: No: Chest Pain, Palpitations Gastrointestinal: No: Nausea, Vomiting Objective Exam Vital Signs Date Time Temp Pulse Resp B/P (MAP) Pulse Ox O2 Delivery O2 Flow Rate FiO2 11/21/18 08:20 Room Air 11/21/18 08:14 95 Room Air 11/21/18 08:00 98.4 85 18 146/75 (98) 94 Room Air 11/21/18 04:10 98.4 90 18 121/69 (86) 96 Room Air 11/21/18 01:00 100 11/20/18 23:15 98.2 95 18 162/88 (112) 100 Room Air 11/20/18 20:00 Room Air 11/20/18 20:00 98.3 95 22 151/72 (98) 95 Room Air 11/20/18 19:18 96 Room Air 11/20/18 19:00 100 11/20/18 15:54 98.8 94 20 133/65 (87) 95 Room Air 11/20/18 14:27 96 Room Air 11/20/18 13:00 82 I & O 11/21/18 07:00 Intake Total 1990 ml Output Total 1350 ml Balance 640 ml Capillary Refill : Less Than 3 Seconds General Appearance: No Apparent Distress, WD/WN, Obese HEENT: PERRL/EOMI, Normal ENT Inspection, Pharynx Normal, Moist Mucous Membranes Respiratory: Chest Non Tender, No Accessory Muscle Use, No Respiratory Distress , Crackles, Decreased Breath Sounds, Wheezing Cardiovascular: Regular Rate, Rhythm, No Edema, No Murmur, Normal Peripheral Pulses Gastrointestinal: non tender, soft, no organomegaly, distended (normal body habitus) Extremity: No Calf Tenderness, No Pedal Edema Neurologic/Psychiatric: Alert, Oriented x3, No Motor/Sensory Deficits, Normal Mood/Affect Skin: Normal Color, Warm/Dry, Other (right arm is bruised and swollen) Results Lab Laboratory Tests 11/20/18 11:29: Glucometer 265H 11/20/18 15:57: Glucometer 197H 11/20/18 20:37: Glucometer 201H 11/21/18 03:25: White Blood Count 8.3, Red Blood Count 3.33L, Hemoglobin 9.7L, Hematocrit 31L, Mean Corpuscular Volume 93, Mean Corpuscular Hemoglobin 29, Mean Corpuscular Hemoglobin Concent 32, Red Cell Distribution Width 14.9H, Platelet Count 172, Mean Platelet Volume 9.6, Neutrophils (%) (Auto) 85H, Lymphocytes (%) (Auto) 8L , Monocytes (%) (Auto) 7, Eosinophils (%) (Auto) 1, Basophils (%) (Auto) 0, Neutrophils # (Auto) 7.0, Lymphocytes # (Auto) 0.7L, Monocytes # (Auto) 0.6, Eosinophils # (Auto) 0.1, Basophils # (Auto) 0.0, Sodium Level 139, Potassium Level 4.2, Chloride Level 111H, Carbon Dioxide Level 19L, Anion Gap 9, Blood Urea Nitrogen 30H, Creatinine 2.03H, Estimat Glomerular Filtration Rate 31, BUN/ Creatinine Ratio 15, Glucose Level 159H, Calcium Level 8.6, Corrected Calcium 9.2, Total Bilirubin 1.0, Aspartate Amino Transf (AST/SGOT) 18, Alanine Aminotransferase (ALT/SGPT) 12, Alkaline Phosphatase 48, Total Protein 5.6L, Albumin 3.2 11/21/18 06:21: Glucometer 110 11/21/18 11:02: Glucometer 107 Assessment/Plan Assessment/Plan Assessment/Plan chest pain s/p cardiac intervention dysphagia, likely due to superficial pressure necrosis of esophagus 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
[2018-11-21 12:00] VITALS: BP 160/84
--- NOTE | 2018-11-21 12:26 | Progress Note-Hospitalist ---
Subjective HPI/CC On Admission Date Seen by Provider: Nov 21, 2018 Time Seen by Provider: 11:00 Chief Complaint: Chest pain. HPI: This is a clinic Pt of Eva Gottlieb at [facility] who has a history of HTN and chronic kidney disease. Pt sees Dr. Clark Nephrology on a regular basis and has been on dialysis for seventeen dialysis treatments but went off of dialysis in May, who presented to the ER with chest pain. Pt reports he went to the [employer] and had dinner and ate some pulled pork, which was terrible he reported, he felt like he could not get it dislodged out of his throat and currently feels like that after drinking a lot of fluid at home. He was found to be in need of cardiac risk stratification, in addtion I did speak with Dr. Chaudhry who will perform an EGD because I suspect there is still some pulled pork lodged in his esophagus. Creatinine was 3.0 and I did speak with Dr. Clark who spoke to his who is his diploma dental assistant and a minimal use of contrast will be used during the cardiac catheterization tomorrow. At this current time he reports his chest pain is on and off but does report it is coming from his throat to his upper chest. Subjective/Events-last exam Patient still weak Lungs remain coarse Nebs tolerated O2 tolerated No pain is reported Kidneys are stable No oliguria Review of Systems General: Fatigue Pulmonary: Dyspnea, Cough Objective Exam Vital Signs Vital Signs Date Time Temp Pulse Resp B/P (MAP) Pulse Ox O2 Delivery O2 Flow Rate FiO2 11/21/18 15:03 95 Room Air 11/21/18 13:00 103 11/21/18 12:00 98.0 20 160/84 (109) 11/20/18 09:33 2.00 11/18/18 16:22 21 Capillary Refill : Less Than 3 Seconds General Appearance: No Apparent Distress, WD/WN, Obese HEENT: PERRL/EOMI, Normal ENT Inspection, Pharynx Normal, Moist Mucous Membranes Respiratory: Chest Non Tender, No Accessory Muscle Use, No Respiratory Distress , Crackles, Decreased Breath Sounds, Wheezing Cardiovascular: Regular Rate, Rhythm, No Edema, No Murmur, Normal Peripheral Pulses Gastrointestinal: Normal Bowel Sounds, No Organomegaly, No Pulsatile Mass, Non Tender, Soft Back: Normal Inspection, No CVA Tenderness, No Vertebral Tenderness Extremity: No Calf Tenderness, No Pedal Edema Neurologic/Psychiatric: Alert, Oriented x3, No Motor/Sensory Deficits, Normal Mood/Affect Skin: Normal Color, Warm/Dry, Other (right arm is bruised and swollen) Results/Procedures Lab Laboratory Tests 11/21/18 03:25 Patient resulted labs reviewed. Assessment/Plan Assessment and Plan Assess & Plan/Chief Complaint Assessment: Chest pain s/p cath with stent placement [facility] consulting Dr Bocanegra Foreign body of pulled pork lodged in esophagus likely the cause of the pressure ulcer like area in stomach upper esophagus on EGD per Dr Chaudhry CRF prev on dialysis HTN DM Plan: Dr Chaudhry and Dr Clark consultations are appreciated Monitor closely s/p EGD Cardiac cath completed Monitor creatinine Appreciate Dr Clark and Dr Bocanegra Advance diet Ambulate Diagnosis/Problems Diagnosis/Problems (1) Chest pain Status: Resolved Qualifiers: Chest pain type: unspecified Qualified Codes: R07.9 - Chest pain, unspecified Resolution Date/Time: 11/20/18 @ 21:28 (2) Chronic kidney disease Status: Chronic Qualifiers: Chronic kidney disease stage: stage 5, not on chronic dialysis Qualified Codes: N18.5 - Chronic kidney disease, stage 5 (3) Esophageal obstruction Status: Resolved Resolution Date/Time: 11/19/18 @ 19:43 (4) CAD (coronary artery disease) Status: Chronic Qualifiers: Coronary Disease-Associated Artery/Lesion type: [place] artery [place] vs. transplanted heart: belk[place]ski heart Associated angina: with stable angina Qualified Codes: I25.118 - Atherosclerotic heart disease of [place]ski coronary artery with other forms of angina pectoris (5) Stented coronary artery Status: Acute (6) COPD with acute exacerbation Status: Acute Clinical Quality Measures AMI/AHF: ASA po Prior to arrival: No DVT/VTE Risk/Contraindication: Risk Factor Score Per Nursin RFS Level Per Nursing on Admit: 3=High JACKELINE CEE DO Nov 21, 2018 12:26
[2018-11-21] MEDS: methylPREDNISolone 40 MG/ML (Solu-MEDROL) VIAL IV SCH ×2 (15:43→20:22)
[2018-11-21 15:55] VITALS: BP 163/84
[2018-11-21 19:23] VITALS: BP 146/68
[2018-11-21] MEDS: MONTELUKAST 10 MG (SINGULAIR) TAB PO SCH (20:22)
[2018-11-21] MEDS: ATORVASTATIN 10 MG (LIPITOR) TABLET PO SCH (20:22)
[2018-11-22 00:21] VITALS: BP 143/77
[2018-11-22 03:58] VITALS: BP 141/44
[2018-11-22 06:21] LABS: BASOPHILS % (AUTO) 0 % (0-10); EOSINOPHILS % (AUTO) 0 % (0-10); HEMATOCRIT 32 % (40-54); HEMOGLOBIN 10.2 G/DL (13.3-17.7); LYMPHOCYTES # (AUTO) 0.4 X 10^3 (1.0-4.0); LYMPHOCYTES % (AUTO) 5 % (12-44); MEAN CORPUSCULAR HEMOGLOBIN 30 PG (25-34); MEAN CORPUSCULAR HGB CONC 32 G/DL (32-36); MEAN CORPUSCULAR VOLUME 93 FL (80-99); MEAN PLATELET VOLUME 9.5 FL (7.4-10.4); MONOCYTES # (AUTO) 0.4 X 10^3 (0.0-1.0); MONOCYTES % (AUTO) 4 % (0-12); NEUTROPHILS # (AUTO) 8.2 X 10^3 (1.8-7.8); NEUTROPHILS % (AUTO) 91 % (42-75); PLATELET COUNT 181 10^3/uL (130-400); RED CELL DISTRIBUTION WIDTH 14.8 % (10.0-14.5)
[2018-11-22] MEDS: SUCRALFATE 1 GM (CARAFATE) TAB PO SCH ×4 (06:40→21:09)
[2018-11-22 06:46] LABS: ALBUMIN 3.3 GM/DL (3.2-4.5); BILIRUBIN,TOTAL 0.9 MG/DL (0.1-1.0); CALCIUM 8.6 MG/DL (8.5-10.1); CREATININE SERUM 2.15 MG/DL (0.60-1.30); POTASSIUM 4.7 MMOL/L (3.6-5.0); TOTAL PROTEIN 5.9 GM/DL (6.4-8.2)
[2018-11-22 07:11] LABS: BASOPHILS % (MANUAL) 1 %; LYMPHOCYTES % (MANUAL) 5 %; MONOCYTES % (MANUAL) 5 %; NEUTROPHILS % (MANUAL) 89 %
[2018-11-22] MEDS: RT-ALBUTEROL SULF 2.5 MG/3 ML PRE-MIX VIAL INH SCH ×3 (07:55→22:41)
[2018-11-22 08:00] VITALS: BP 157/82
[2018-11-22] MEDS: predniSONE 5 MG TAB PO SCH ×2 (08:13→21:09)
[2018-11-22] MEDS: LORATADINE (CLARITIN) 10 MG TAB PO SCH (08:19)
[2018-11-22] MEDS: TAMSULOSIN 0.4 MG (FLOMAX) CAP PO SCH (08:19)
[2018-11-22] MEDS: ASPIRIN E.C. 81 MG (ECOTRIN) TAB PO SCH (08:19)
[2018-11-22] MEDS: PANTOPRAZOLE 40 MG (PROTONIX) VIAL IV SCH (08:19)
[2018-11-22] MEDS: APIXABAN 2.5 MG (ELIQUIS) TABLET PO SCH ×2 (08:19→21:10)
[2018-11-22] MEDS: meTOproloL SUCCINATE 50 MG (TOPROL XL) TAB PO SCH (08:19)
[2018-11-22] MEDS: TICAGRELOR 90 MG TABLET (BRILINTA) PO SCH ×2 (08:20→21:10)
[2018-11-22] MEDS: glipiZIDE 5 MG (GLUCOTROL) TAB PO SCH ×2 (08:20→21:16)
[2018-11-22] MEDS: methylPREDNISolone 40 MG/ML (Solu-MEDROL) VIAL IV SCH ×2 (08:23→21:10)
[2018-11-22] MEDS: inSUlin DETERMIR 1 UNIT/0.01 ML (LEVEMIR) CHARGE PER UNIT SQ SCH ×2 (08:26→21:10)
[2018-11-22] MEDS: inSUlin ASPART (NovoLOG) 1 UNIT/0.01 ML (CHARGE PER UNIT) SC SCH ×3 (11:43→21:10)
[2018-11-22 12:00] VITALS: BP 158/82
--- NOTE | 2018-11-22 14:13 | Progress Note-Hospitalist ---
Subjective HPI/CC On Admission Date Seen by Provider: Nov 22, 2018 Time Seen by Provider: 11:30 Chief Complaint: Chest pain. HPI: This is a clinic Pt of Eva Gottlieb at [facility] who has a history of HTN and chronic kidney disease. Pt sees Dr. Clark Nephrology on a regular basis and has been on dialysis for seventeen dialysis treatments but went off of dialysis in May, who presented to the ER with chest pain. Pt reports he went to the [employer] and had dinner and ate some pulled pork, which was terrible he reported, he felt like he could not get it dislodged out of his throat and currently feels like that after drinking a lot of fluid at home. He was found to be in need of cardiac risk stratification, in addtion I did speak with Dr. Chaudhry who will perform an EGD because I suspect there is still some pulled pork lodged in his esophagus. Creatinine was 3.0 and I did speak with Dr. 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 At this current time he reports his chest pain is on and off but does report it is coming from his throat to his upper chest. Subjective/Events-last exam Patient needs to resolve constipation so MiraLAX and lactulose was given Feels like secretions are in his upper airway but that has been the case for 20 years Likely will need home oxygen evaluation prior to discharge Nebulizer treatments are tolerated well Urinating well No oliguria No more chest pain Talk to him about proton pump inhibitors and how it heals the ulceration documented in the EGD Review of Systems General: Fatigue Objective Exam Vital Signs Vital Signs Date Time Temp Pulse Resp B/P (MAP) Pulse Ox O2 Delivery O2 Flow Rate FiO2 11/22/18 19:30 98.0 90 16 128/69 (88) 98 Room Air 11/20/18 09:33 2.00 11/18/18 16:22 21 Capillary Refill : Less Than 3 Seconds General Appearance: No Apparent Distress, WD/WN, Obese HEENT: PERRL/EOMI, Normal ENT Inspection, Pharynx Normal, Moist Mucous Membranes Respiratory: Chest Non Tender, No Accessory Muscle Use, No Respiratory Distress , Crackles, Decreased Breath Sounds, Wheezing Cardiovascular: Regular Rate, Rhythm, No Edema, No Murmur, Normal Peripheral Pulses Gastrointestinal: Normal Bowel Sounds, No Organomegaly, No Pulsatile Mass, Non Tender, Soft Back: Normal Inspection, No CVA Tenderness, No Vertebral Tenderness Extremity: No Calf Tenderness, No Pedal Edema Neurologic/Psychiatric: Alert, Oriented x3, No Motor/Sensory Deficits, Normal Mood/Affect Skin: Normal Color, Warm/Dry, Other (right arm is bruised and swollen) Results/Procedures Lab Laboratory Tests 11/22/18 05:33 Patient resulted labs reviewed. Assessment/Plan Assessment and Plan Assess & Plan/Chief Complaint Assessment: Chest pain s/p cath with stent placement AECOPD consulting Dr Bocanegra Foreign body of pulled pork lodged in esophagus likely the cause of the pressure ulcer like area in stomach upper esophagus on EGD per Dr Chaudhry CRF prev on dialysis HTN DM Plan: Dr Chaudhry and Dr Clark consultations are appreciated Monitor closely s/p EGD Cardiac cath completed Monitor creatinine Appreciate Dr Clark and Dr Bocanegra Advance diet Ambulate Diagnosis/Problems Diagnosis/Problems (1) Chest pain Status: Resolved Qualifiers: Chest pain type: unspecified Qualified Codes: R07.9 - Chest pain, unspecified Resolution Date/Time: 11/20/18 @ 21:28 (2) Chronic kidney disease Status: Chronic Qualifiers: Chronic kidney disease stage: stage 5, not on chronic dialysis Qualified Codes: N18.5 - Chronic kidney disease, stage 5 (3) Esophageal obstruction Status: Resolved Resolution Date/Time: 11/19/18 @ 19:43 (4) CAD (coronary artery disease) Status: Chronic Qualifiers: Coronary Disease-Associated Artery/Lesion type: [place] artery [place] vs. transplanted heart: [place] heart Associated angina: with stable angina Qualified Codes: I25.118 - Atherosclerotic heart disease of [place] coronary artery with other forms of angina pectoris (5) Stented coronary artery Status: Acute (6) COPD with acute exacerbation Status: Acute Clinical Quality Measures AMI/AHF: ASA po Prior to arrival: No DVT/VTE Risk/Contraindication: Risk Factor Score Per Nursin RFS Level Per Nursing on Admit: 3=High JACKELINE CEE DO Nov 22, 2018 14:13
--- NOTE | 2018-11-22 14:15 | Progress Note ---
Subjective Time Seen by a Provider: 13:01 Subjective/Events-last exam Pt seen and examined, did not complain of any throat pain today. His main complaint is that he still is not eating enough and didn't get 2 popsicles "like I did yesterday". Review of Systems General: No Chills, No Night Sweats Pulmonary: No Dyspnea, No Cough Cardiovascular: No: Palpitations Objective Exam Vital Signs Date Time Temp Pulse Resp B/P (MAP) Pulse Ox O2 Delivery O2 Flow Rate FiO2 11/22/18 13:00 96 11/22/18 08:15 Room Air 11/22/18 08:00 97.9 87 20 157/82 (107) 96 Room Air 11/22/18 07:55 93 Room Air 11/22/18 07:00 69 11/22/18 03:58 97.9 88 16 141/44 (76) 96 Room Air 11/22/18 01:00 68 11/22/18 00:21 97.2 92 16 143/77 (99) 95 Room Air 11/21/18 20:15 Room Air 11/21/18 19:36 95 Room Air 11/21/18 19:23 97.2 94 16 146/68 (94) 96 Room Air 11/21/18 19:00 99 11/21/18 15:55 97.0 71 16 163/84 (110) 93 Room Air 11/21/18 15:03 95 Room Air I & O 11/22/18 07:00 Intake Total 3610 ml Output Total 1250 ml Balance 2360 ml Capillary Refill : Less Than 3 Seconds General Appearance: No Apparent Distress, WD/WN, Obese HEENT: PERRL/EOMI, Pharynx Normal, Moist Mucous Membranes Respiratory: Chest Non Tender, No Accessory Muscle Use, No Respiratory Distress , Crackles, Decreased Breath Sounds, Wheezing Cardiovascular: Regular Rate, Rhythm, No Edema, No Murmur, Normal Peripheral Pulses Gastrointestinal: non tender, soft, no organomegaly, distended (normal body habitus) Extremity: No Calf Tenderness, No Pedal Edema Neurologic/Psychiatric: Alert, Oriented x3, Normal Mood/Affect Skin: Normal Color, Warm/Dry, Other (right arm is bruised and swollen) Results Lab Laboratory Tests 11/21/18 15:54: Glucometer 138H 11/21/18 20:35: Glucometer 363H 11/22/18 05:29: Glucometer 297H 11/22/18 05:33: White Blood Count 9.0, Red Blood Count 3.44L, Hemoglobin 10.2L, Hematocrit 32L, Mean Corpuscular Volume 93, Mean Corpuscular Hemoglobin 30, Mean Corpuscular Hemoglobin Concent 32, Red Cell Distribution Width 14.8H, Platelet Count 181, Mean Platelet Volume 9.5, Neutrophils (%) (Auto) 91H, Lymphocytes (%) (Auto) 5L , Monocytes (%) (Auto) 4, Eosinophils (%) (Auto) 0, Basophils (%) (Auto) 0, Neutrophils # (Auto) 8.2H, Lymphocytes # (Auto) 0.4L, Monocytes # (Auto) 0.4, Eosinophils # (Auto) 0.0, Basophils # (Auto) 0.0, Neutrophils % (Manual) 89, Lymphocytes % (Manual) 5, Monocytes % (Manual) 5, Basophils % (Manual) 1, Sodium Level 138, Potassium Level 4.7, Chloride Level 112H, Carbon Dioxide Level 18L, Anion Gap 8, Blood Urea Nitrogen 24H, Creatinine 2.15H, Estimat Glomerular Filtration Rate 29, BUN/Creatinine Ratio 11, Glucose Level 314H, Calcium Level 8.6, Corrected Calcium 9.2, Total Bilirubin 0.9, Aspartate Amino Transf (AST/SGOT) 19, Alanine Aminotransferase (ALT/SGPT) 13, Alkaline Phosphatase 54, Total Protein 5.9L, Albumin 3.3 11/22/18 11:06: Glucometer 338H Assessment/Plan Assessment/Plan Assessment/Plan chest pain s/p cardiac intervention dysphagia, likely due to superficial 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 Clinical Quality Measures AMI/AHF: ASA po Prior to arrival: No DVT/VTE Risk/Contraindication: Risk Factor Score Per Nursin RFS Level Per Nursing on Admit: 3=High CAMILO ALLEN DO Nov 22, 2018 14:15
[2018-11-22] MEDS ORDERED: inSUlin ASPART (NovoLOG) 1 UNIT/0.01 ML (CHARGE PER UNIT) SC SCH (16:00)
[2018-11-22 16:33] VITALS: BP 151/74
[2018-11-22 19:30] VITALS: BP 128/69
[2018-11-22] MEDS: MONTELUKAST 10 MG (SINGULAIR) TAB PO SCH (21:09)
[2018-11-22] MEDS: LACTULOSE SYRUP 10GM/15ML (ENULOSE) 30ML UDC PO SCH ×2 (21:09→21:22)
[2018-11-22] MEDS: ATORVASTATIN 10 MG (LIPITOR) TABLET PO SCH (21:09)
[2018-11-22] MEDS: POLYETHYLENE GLYCOL 17 GM (MIRALAX) PACK PO SCH (21:11)
[2018-11-23 00:13] VITALS: BP 117/66
[2018-11-23 04:03] VITALS: BP 137/74
[2018-11-23] MEDS: SUCRALFATE 1 GM (CARAFATE) TAB PO SCH ×2 (05:46→11:22)
[2018-11-23] MEDS: inSUlin ASPART (NovoLOG) 1 UNIT/0.01 ML (CHARGE PER UNIT) SC SCH ×2 (05:53→11:23)
[2018-11-23 08:00] VITALS: BP 136/64
[2018-11-23] MEDS: ASPIRIN E.C. 81 MG (ECOTRIN) TAB PO SCH (08:17)
[2018-11-23] MEDS: predniSONE 5 MG TAB PO SCH (08:17)
[2018-11-23] MEDS: TAMSULOSIN 0.4 MG (FLOMAX) CAP PO SCH (08:17)
[2018-11-23] MEDS: meTOproloL SUCCINATE 50 MG (TOPROL XL) TAB PO SCH (08:17)
[2018-11-23] MEDS: POLYETHYLENE GLYCOL 17 GM (MIRALAX) PACK PO SCH (08:17)
[2018-11-23] MEDS: LORATADINE (CLARITIN) 10 MG TAB PO SCH (08:17)
[2018-11-23] MEDS: APIXABAN 2.5 MG (ELIQUIS) TABLET PO SCH (08:17)
[2018-11-23] MEDS: PANTOPRAZOLE 40 MG (PROTONIX) VIAL IV SCH (08:18)
[2018-11-23] MEDS: methylPREDNISolone 40 MG/ML (Solu-MEDROL) VIAL IV SCH (08:18)
[2018-11-23] MEDS: LACTULOSE SYRUP 10GM/15ML (ENULOSE) 30ML UDC PO SCH (08:18)
[2018-11-23] MEDS: glipiZIDE 5 MG (GLUCOTROL) TAB PO SCH (08:23)
[2018-11-23] MEDS: TICAGRELOR 90 MG TABLET (BRILINTA) PO SCH (08:23)
[2018-11-23] MEDS: inSUlin DETERMIR 1 UNIT/0.01 ML (LEVEMIR) CHARGE PER UNIT SQ SCH (08:24)
--- NOTE | 2018-11-23 09:23 | Physical Therapy Progress Note ---
Therapy Progress Note Attempted PT with patient this morning. He says he just ambulated on his own and doesn't want to work with PT at this time. Patient states he has been ambulating in the hallway on his own all weekend and has done so a couple of times this morning already. Patient is ambulating in the hallway by himself with mod I. PT will discharge patient at this time. Patient encouraged to continue to ambulate in the hallway several times a day. STEPHEN CLEARY PT Nov 23, 2018 09:23
--- NOTE | 2018-11-23 10:38 | Cardiology Progress Note ---
Cardiology SOAP Progress Note Subjective: no cardiac symptoms. Objective: I&O/Vital Signs 11/23/18 11/23/18 11/23/18 11/23/18 00:13 01:00 04:03 07:00 Temp 97.1 97.7 Pulse 80 81 60 68 Resp 16 20 B/P (MAP) 117/66 (83) 137/74 (95) Pulse Ox 97 95 O2 Delivery Room Air Room Air 11/23/18 11/23/18 08:00 08:00 Temp 98.2 Pulse 87 Resp 18 B/P (MAP) 136/64 (88) Pulse Ox 95 92 O2 Delivery Room Air Room Air 11/23/18 00:00 Intake Total 1830 ml Output Total 450 ml Balance 1380 ml Weight (Pounds): 212 Weight (Ounces): 1.0 Weight (Calculated Kilograms): [id number] Constitutional: appears stated age, AAO x 3, well-developed, well-nourished Respiratory: chest is bilaterally symmetric, lungs clear to auscultation Cardiovascular: regular rate-rhythm, S1 and S2 Gastrointestional: No tender, No soft, No round, No distended, No pulsatile mass, No organomegaly, No guarding, No rebound, No tenderness, No hernia, No mass, No audible bowel sounds, No abnormal bowel sounds, No abdominal bruits, No spleenomegaly, No other Extremities: No normal range of motion, No non-tender, No normal inspection, No pedal edema, No calf tenderness, No normal capillary refill, No pelvis stable , No calf tenderness, No inflammation, No pedal edema, No slow capillary refill , No swelling, No other, No abrasion, No clubbing, No cyanosis, No ecchymosis, No laceration, No no lower extremity edema bilateral, No significant edema, No tenderness, No wound Neurologic/Psychiatric: no motor/sensory deficits, alert, normal mood/affect, oriented x 3, power is 5/5 both on sides Skin: No normal color, No warm/dry, No cyanosis, No cool, No diaphoresis, No damp, No ecchymosis, No jaundice, No mottled, No pallor, No rash, No tattoos/ piercings, No ulcerations, No rash on exposed areas, No ulcerations on exposed areas, No other Results/Procedures: Labs Laboratory Tests 11/22/18 11:06: Glucometer 338H 11/22/18 16:32: Glucometer 271H 11/22/18 20:17: Glucometer 341H 11/23/18 05:52: Glucometer 175H A/P: Assessment/Dx: Unstable angina, Shortness of breath, Paroxysmal atrial fibrillation, Chronic kidney disease stage IV, Diabetes. Plan: He has history of end-stage renal disease and was on dialysis, but has been taken off dialysis. He had an episode of paroxysmal atrial fibrillation and was started on Eliquis and flecainide at that point in time. He also has history of rheumatoid arthritis and takes prednisone. He has history of diabetes. He had a previous admission in [facility] for chest pain. Serial troponin were negative. EKG did not reveal any acute ST-T wave abnormalities. Coronary angiography was recommended however the patient refused. 1. Chest pain: Prolonged episode of chest pain. Patient has significant risk factors for CAD including diabetes and end-stage chronic kidney disease. This is likely unstable angina. Coronary angiography done on 11/19/2018 which showed severe proximal LAD stenosis treated successfully with one drug-eluting stent with excellent results. Dual antiplatelet therapy for at least a month, after one month patient to continue Brilinta or Plavix and Eliquis long-term. Stress test was done in [facility] on 03/05/2018 which showed no inducible ischemia or infarction. Echocardiogram done on 03/04/2018 at [facility] showed mild concentric LVH with diastolic interventional septal diameter of 1.1 cm. EF 70 percent. No valvular heart disease. 2. Shortness of breath: Normal respiratory examination. Continue Bumex. 3. Paroxysmal atrial fibrillation: One episode of atrial fibrillation according to the history. Continue low dose Eliquis and metoprolol. Flecainide discontinued previously. 4. Hypertension: Continue metoprolol. Well controlled. 5. End-stage renal disease: Follows nephrology as an outpatient. Generous IV fluids before and after the procedure. However, cautious fluids from now on. Creatinine did not worsen after coronary angiography and PCI yesterday. Only 24 mL of contrast was used. 6. Esophageal disease: Dr. Chaudhry and Dr. Wilde is following. I can follow the patient in 2-3 weeks after discharge. Thank you for your consultation. Please call me if you have any questions. Mireille Clark MD, FACP, FACC, FSCAI, FHRS, CCDS Interventional Cardiology Cardiac Electrophysiology Vascular Medicine and Endovascular Interventions Clinical Quality Measures AMI/AHF: ASA po Prior to arrival: Abner Nolasco MD Nov 23, 2018 10:37
[2018-11-23] MEDS ORDERED: SUCR1TAB PO (13:37)
[2018-11-23] MEDS ORDERED: TICA90TA PO (13:37)
[2018-11-23] MEDS ORDERED: ASPI-983 PO (13:37)
[2018-11-23] MEDS ORDERED: PRD10T PO (13:37)
[2018-11-23] MEDS ORDERED: PANT40TA3 PO (13:37)
[2018-11-23] MEDS ORDERED: ATOR10TA66 PO (13:37)
--- NOTE | 2018-11-23 13:39 | Discharge Instructions ---
Discharge Inst-[facility] Discharge Medications New, Converted or Re-Newed RX: Transmitted to Pharmacy New Medications: Aspirin (Aspirin EC) 81 Mg Tablet.dr 81 MG PO DAILY, #30 TAB 0 Refills Atorvastatin Calcium (Atorvastatin Calcium) 10 Mg Tablet 10 MG PO HS, #30 TAB 0 Refills Pantoprazole Sodium (Pantoprazole Sodium) 40 Mg Tablet.dr 40 MG PO DAILY, #30 TAB 0 Refills Prednisone (Prednisone) 10 Mg Tab 0 PO UD, #21 TAB 0 Refills Take 6 tabs (60mg) daily, decrease by 1 tab (10mg) daily. Sucralfate (Sucralfate) 1 Gm Tablet 1 GM PO ACHS, #120 TAB 0 Refills Ticagrelor (Brilinta) 90 Mg Tablet 90 MG PO BID, #60 TAB 0 Refills Continued Medications: Acetaminophen (Tylenol Arthritis) 650 Mg Tablet.er 1300 MG PO DAILY PRN for PAIN-MILD, TAB Albuterol Sulfate (Albuterol Sulfate) 2.5 Mg/3 Ml Vial.neb 2.5 MG NEB TID PRN for SHORTNESS OF BREATH, EA Apixaban (Eliquis) 2.5 Mg Tablet 2.5 MG PO BID, TAB Bumetanide (Bumetanide) 2 Mg Tablet 2 MG PO DAILY PRN for SWELLING, TAB Calcitriol (Calcitriol) 0.25 Mcg Capsule 0.25 MCG PO MoWeFr, CAP Glipizide (Glipizide) 5 Mg Tablet 5 MG PO BID, TAB Insulin Detemir (Levemir Flextouch) 100 Unit/1 Ml Insuln.pen 20 UNIT SQ BID, EA Metoprolol Succinate (Toprol Xl) 50 Mg Tab.er.24h 50 MG PO DAILY, TAB Prednisone (Prednisone) 5 Mg Tablet 5 MG PO BID, TAB Tamsulosin HCl (Tamsulosin HCl) 0.4 Mg Cap.er.24h 0.4 MG PO DAILY, CAP Discontinued Medications: Clindamycin HCl (Clindamycin HCl) 300 Mg Capsule 300 MG PO Q8H for 10 Days, CAP 10 DAY SUPPLY FILLED 11-12-18 Patient Instructions Goal/Follow Up Appt: Follow up with Eva Gottlieb at [facility] on 11/25 at 1:20 pm. Follow up with Dr Clark in 2-3 weeks. Follow up with Surgery as directed. Return to The [facility] For: Fever, inability to swallow, chest pain Activity & Diet Discharge Diet: ADA Diet, Soft Diet Activity as Tolerated: Yes Copy Copies To 1: KANCHAN Jacob BETHANY N MD Nov 23, 2018 13:39
[2018-11-23 13:44] VITALS: BP 136/64
[2018-11-23] MEDS ORDERED: predniSONE 10 MG TAB PO SCH (17:00)
--- NOTE | 2018-11-23 17:09 | Progress Note ---
Subjective Date Seen by a Provider: Nov 23, 2018 Time Seen by a Provider: 10:30 Subjective/Events-last exam patient tolerating diet. Swallowing not causing any pain or discomfort at this time. Feels that his overall getting better. No new complaints. Denies any nausea vomiting fever sweats chills shortness of breath or chest pain. Objective Exam Vital Signs Date Time Temp Pulse Resp B/P (MAP) Pulse Ox O2 Delivery O2 Flow Rate FiO2 11/23/18 13:44 87 18 136/64 95 Room Air 11/23/18 08:00 98.2 87 18 136/64 (88) 92 Room Air 11/23/18 08:00 95 Room Air 11/23/18 07:00 68 11/23/18 04:03 97.7 60 20 137/74 (95) 95 Room Air 11/23/18 01:00 81 11/23/18 00:13 97.1 80 16 117/66 (83) 97 Room Air 11/22/18 20:50 Room Air 11/22/18 19:30 98.0 90 16 128/69 (88) 98 Room Air 11/22/18 19:00 97 I & O 11/23/18 07:00 Intake Total 2270 ml Output Total 925 ml Balance 1345 ml Capillary Refill : Less Than 3 Seconds General Appearance: No Apparent Distress, WD/WN, Obese HEENT: PERRL/EOMI, Normal ENT Inspection, Pharynx Normal, Moist Mucous Membranes Respiratory: Chest Non Tender, No Accessory Muscle Use, No Respiratory Distress , Decreased Breath Sounds Cardiovascular: Regular Rate, Rhythm, No Edema, No Murmur, Normal Peripheral Pulses Gastrointestinal: non tender, soft; No tenderness Extremity: No Calf Tenderness, Pedal Edema Neurologic/Psychiatric: Alert, Oriented x3, No Motor/Sensory Deficits, Normal Mood/Affect Skin: Normal Color, Warm/Dry, Other (right arm is bruised and swollen) Results Lab Laboratory Tests 11/22/18 20:17: Glucometer 341H 11/23/18 05:52: Glucometer 175H 11/23/18 11:08: Glucometer 221H Assessment/Plan Assessment/Plan Assessment/Plan chest pain s/p cardiac intervention dysphagia, likely due to superficial 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 Medications - carafate/protonix Repeat EGD in future to recheck area, does not appear that he will need another one during this admission. we'll have him follow-up in 2 weeks. Clinical Quality Measures AMI/AHF: ASA po Prior to arrival: No DVT/VTE Risk/Contraindication: Risk Factor Score Per Nursin RFS Level Per Nursing on Admit: 3=High SILVERIO MONTILLA DO Nov 23, 2018 17:09
--- NOTE | 2018-11-23 17:36 | Discharge Summary ---
Diagnosis/Chief Complaint Date of Admission Nov 20, 2018 at 13:32 Date of Discharge Nov 23, 2018 at 14:00 Admission Diagnosis Admission Diagnosis Possible esophageal obstruction Chest pain Discharge Diagnosis Chest pain s/p cath with stent placement per Dr. Clark- LAD stent on 11/19, needs dual antiplatelet therapy x 1 month. Follow up with Dr. Clark in 2-3 weeks. 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 Wilde's H&P- HPI: This is a clinic Pt of Eva Gottlieb at [facility] who has a history of HTN and chronic kidney disease. Pt sees Dr. Clark Nephrology on a regular basis and has been on dialysis for seventeen dialysis treatments but went off of dialysis in May, who presented to the ER with chest pain. Pt reports he went to the [employer] and had dinner and ate some pulled pork, which was terrible he reported, he felt like he could not get it dislodged out of his throat and currently feels like that after drinking a lot of fluid at home. He was found to be in need of cardiac risk stratification, in addtion I did speak with Dr. Chaudhry who will perform an EGD because I suspect there is still some pulled pork lodged in his esophagus. Creatinine was 3.0 and I did speak with Dr. 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 At this current time he reports his chest pain is on and off but does report it is coming from his throat to his upper chest. Discharge Summary-Simple/Stand Consultations Discharge Physical Examination Allergies: Coded Allergies: No Known Drug Allergies (Verified , 11/18/18) Vitals & I&Os Vital Sign - Last 12Hours Date Time Temp Pulse Resp B/P (MAP) Pulse Ox O2 Delivery O2 Flow Rate FiO2 3/4/19 13:44 87 18 136/64 95 Room Air 11/23/18 08:00 98.2 11/20/18 09:33 2.00 11/18/18 16:22 21 Intake and Output 11/23/18 00:00 Intake Total 1830 ml Output Total 450 ml Balance 1380 ml General Appearance: Alert, No Acute Distress Respiratory: Clear to Auscultation, Normal Air Movement Cardiovascular: Regular Rate, No Murmurs Extremities: Other (Trace to 1+ pitting edema in legs) Neuro: Normal Speech Psych/Mental Status: Mental Status NL Hospital Course See final discharge diagnosis. Labs Laboratory Tests Test 11/21/18 20:35 11/22/18 05:29 11/22/18 05:33 11/22/18 11:06 Range/Units Glucometer 363 H 297 H 338 H 70-110 MG/DL White Blood Count 9.0 4.3-11.0 10^3/uL Red Blood Count 3.44 L 4.35-5.85 10^6/uL Hemoglobin 10.2 L 13.3-17.7 G/DL Hematocrit 32 L 40-54 % Mean Corpuscular Volume 93 80-99 FL Mean Corpuscular Hemoglobin 30 25-34 PG Mean Corpuscular Hemoglobin Concent 32 32-36 G/DL Red Cell Distribution Width 14.8 H 10.0-14.5 % Platelet Count 181 130-400 10^3/uL Mean Platelet Volume 9.5 7.4-10.4 FL Neutrophils (%) (Auto) 91 H 42-75 % Lymphocytes (%) (Auto) 5 L 12-44 % Monocytes (%) (Auto) 4 0-12 % Eosinophils (%) (Auto) 0 0-10 % Basophils (%) (Auto) 0 0-10 % Neutrophils # (Auto) 8.2 H 1.8-7.8 X 10^3 Lymphocytes # (Auto) 0.4 L 1.0-4.0 X 10^3 Monocytes # (Auto) 0.4 0.0-1.0 X 10^3 Eosinophils # (Auto) 0.0 0.0-0.3 10^3/uL Basophils # (Auto) 0.0 0.0-0.1 10^3/uL Neutrophils % (Manual) 89 % Lymphocytes % (Manual) 5 % Monocytes % (Manual) 5 % Basophils % (Manual) 1 % Sodium Level 138 135-145 MMOL/L Potassium Level 4.7 3.6-5.0 MMOL/L Chloride Level 112 H 98-107 MMOL/L Carbon Dioxide Level 18 L 21-32 MMOL/L Anion Gap 8 5-14 MMOL/L Blood Urea Nitrogen 24 H 7-18 MG/DL Creatinine 2.15 H 0.60-1.30 MG/DL Estimat Glomerular Filtration Rate 29 BUN/Creatinine Ratio 11 Glucose Level 314 H 70-105 MG/DL Calcium Level 8.6 8.5-10.1 MG/DL Corrected Calcium 9.2 8.5-10.1 MG/DL Total Bilirubin 0.9 0.1-1.0 MG/DL Aspartate Amino Transf (AST/SGOT) 19 5-34 U/L Alanine Aminotransferase (ALT/SGPT) 13 0-55 U/L Alkaline Phosphatase 54 40-136 U/L Total Protein 5.9 L 6.4-8.2 GM/DL Albumin 3.3 3.2-4.5 GM/DL Test 11/22/18 16:32 11/22/18 20:17 11/23/18 05:52 11/23/18 11:08 Range/Units Glucometer 271 H 341 H 175 H 221 H 70-110 MG/DL Discharge Instructions to patient/family Please see electronic discharge instructions given to patient. Discharge Medications Reviewed and agree with Discharge Medication list on patient's Discharge Instruction sheet Clinical Quality Measures AMI/AHF: ASA po Prior to arrival: No DVT/VTE Risk/Contraindication: Risk Factor Score Per Nursin RFS Level Per Nursing on Admit: 3=High Copy Copies To 1: KANCHAN Jacob BETHANY N MD Nov 23, 2018 17:36
[2018-11-24] MEDS ORDERED: PANTOPRAZOLE 40 MG (PROTONIX) TAB PO SCH (09:00)
== END 2018-11-23 14:00 | disposition home or self-care (01) | DRG 247 ==
LOC: EDUNIT# 10:55 → ER 10:58 → 4TH 13:59 → OBSVTOIN 11-20 13:32
PROVIDERS: ADMIT Internal Medicine; ATTEND Internal Medicine
PROC: 0DJ08ZZ Inspection of Upper Intestinal Tract, Via Natural or Artificial Opening Endoscopic (ICD-10-PCS; 2018-11-18)
PROC: 027034Z Dilation of Coronary Artery, One Artery with Drug-eluting Intraluminal Device, Percutaneous Approach (ICD-10-PCS; principal; 2018-11-19)
PROC: 4A023N7 Measurement of Cardiac Sampling and Pressure, Left Heart, Percutaneous Approach (ICD-10-PCS; 2018-11-19)
PROC: B2111ZZ Fluoroscopy of Multiple Coronary Arteries using Low Osmolar Contrast (ICD-10-PCS; 2018-11-19)
DX: I25.110 Atherosclerotic heart disease of native coronary artery with unstable angina pectoris (principal); K22.2 Esophageal obstruction; I12.0 Hypertensive chronic kidney disease with stage 5 chronic kidney disease or end stage renal disease; N18.5 Chronic kidney disease, stage 5; J44.1 Chronic obstructive pulmonary disease with (acute) exacerbation; K22.10 Ulcer of esophagus without bleeding; E11.9 Type 2 diabetes mellitus without complications; N40.0 Benign prostatic hyperplasia without lower urinary tract symptoms; K21.9 Gastro-esophageal reflux disease without esophagitis; H35.30 Unspecified macular degeneration; L40.9 Psoriasis, unspecified; M06.9 Rheumatoid arthritis, unspecified; K22.8 Other specified diseases of esophagus; I48.0 Paroxysmal atrial fibrillation; R06.02 Shortness of breath; R05 Cough; D64.9 Anemia, unspecified; E04.1 Nontoxic single thyroid nodule; Z79.01 Long term (current) use of anticoagulants; Z87.891 Personal history of nicotine dependence; Z79.4 Long term (current) use of insulin; Z95.5 Presence of coronary angioplasty implant and graft
CPT/HCPCS: 36415; 71045; 71250; 80053; 80061; 81000; 82962; 83735; 83874; 83880; 84484; 85007; 85025; 85027; 85347; 85610; 85730; 93005; 93041; 93306; 93458; 94640; 94760; 94761

== ENCOUNTER 2018-11-25 14:48 | Emergency (ER) | payer MEDICARE ==
[~2018-11-25] VITALS: Ht 170.2 cm; Wt 98.4 kg
[~2018-11-25 14:48] MED LIST changes: +ACET-2650 PO; +ALBU2.5V4 NEB; +ASPI-983 PO; +ATOR10TA66 PO; +CLIN300C11 PO; +GLIP5TAB13 PO; +INSU100I29 SQ; +PANT40TA3 PO; +PRD10T PO; +SUCR1TAB PO; +TICA90TA PO
--- NOTE | 2018-11-25 15:19 | ED Respiratory ---
General Stated Complaint: SOB Source: patient Exam Limitations: no limitations History of Present Illness Date Seen by Provider: Nov 25, 2018 Time Seen by Provider: 15:10 Initial Comments Here with report of shortness of air. He was just released from the hospital on Friday and had shortness of breath then. Seen by his doctor today and was sent back here for evaluation due to concerns for heart failure. Arrives dyspneic but O2 sat normal. Patient is very demanding of care and very specific about what he can and can't do. He has both demanding evaluation and preventing it. Ultimately he allowed for further evaluation. Denies chest pain. Does report weight gain. Reports taking his meds as directed including Eliquis. Timing/Duration: getting worse, other (3 days) Severity: moderate Prior Episodes/Possible Cause: occasional episodes Modifying Factors: Worse With Activity; Improves With Rest Associated Symptoms: No chest pain/soreness; cough; No fever/chills, No nasal congestion; shortness of breath; No wheezing Allergies and Home Medications Allergies Coded Allergies: No Known Drug Allergies (Verified , 11/18/18) Home Medications Acetaminophen 650 Mg Tablet.er, 1,300 MG PO DAILY PRN for PAIN-MILD, (Reported) Albuterol Sulfate 2.5 Mg/3 Ml Vial.neb, 2.5 MG NEB TID PRN for SHORTNESS OF BREATH, (Reported) Apixaban 2.5 Mg Tablet, 2.5 MG PO BID, (Reported) Aspirin 81 Mg Tablet.dr, 81 MG PO DAILY Prescribed by: KRISTA EPSTEIN on 11/23/181336 Atorvastatin Calcium 10 Mg Tablet, 10 MG PO HS Prescribed by: KRISTA EPSTEIN on 11/23/181336 Bumetanide 2 Mg Tablet, 2 MG PO DAILY PRN for SWELLING, (Reported) Calcitriol 0.25 Mcg Capsule, 0.25 MCG PO MoWeFr, (Reported) Glipizide 5 Mg Tablet, 5 MG PO BID, (Reported) Insulin Detemir 100 Unit/1 Ml Insuln.pen, 20 UNIT SQ BID, (Reported) Metoprolol Succinate 50 Mg Tab.er.24h, 50 MG PO DAILY, (Reported) Pantoprazole Sodium 40 Mg Tablet.dr, 40 MG PO DAILY Prescribed by: KRISTA EPSTEIN on 11/23/181336 Prednisone 5 Mg Tablet, 5 MG PO BID, (Reported) Prednisone 10 Mg Tab, 0 PO UD Take 6 tabs (60mg) daily, decrease by 1 tab (10mg) daily. Prescribed by: KRISTA EPSTEIN on 11/23/181336 Sucralfate 1 Gm Tablet, 1 GM PO ACHS Prescribed by: KRISTA EPSTEIN on 11/23/181336 Tamsulosin HCl 0.4 Mg Cap.er.24h, 0.4 MG PO DAILY, (Reported) Ticagrelor 90 Mg Tablet, 90 MG PO BID Prescribed by: KRISTA EPSTEIN on 11/23/181336 Patient Home Medication List Home Medication List Reviewed: Yes Review of Systems Review of Systems Constitutional: see HPI; No chills, No fever EENTM: no symptoms reported Respiratory: dyspnea on exertion, short of breath; No stridor, No wheezing Cardiovascular: No chest pain; edema Gastrointestinal: No abdominal pain, No nausea, No vomiting Genitourinary: no symptoms reported Musculoskeletal: no symptoms reported Skin: no symptoms reported Psychiatric/Neurological: See HPI; Denies Headache All Other Systems Reviewed Negative Unless Noted: Yes Past Jkaskae-Ellcnm-Vmcqml Hx Past Med/Social Hx: Reviewed Nursing Past Med/Soc Hx Patient Social History Alcohol Beverage of Choice: Beer Smoking Status: Former Smoker Type Used: Cigars, Cigarettes Former Smoker, Quit: Apr 01, 1978 Recent Hopitalizations: Yes Immunizations Up To Date PED Vaccines UTD: No Date of Pneumonia Vaccine: Jun 22, 2014 Date of Influenza Vaccine: Jul 06, 2018 Seasonal Allergies Seasonal Allergies: No Past Medical History Surgeries: Yes (hernia, dialysis shunt in left arm, umbilical hernia repair, ) Coronary Stent, Orthopedic Respiratory: No Currently Using CPAP: No Currently Using BIPAP: No Cardiac: Yes Hypertension Neurological: No Genitourinary: No (stopped dialysis 6 months ago) Benign Prostatic Hyperpl, Kidney Infection, Renal Failure, Dialysis Gastrointestinal: Yes Abdominal Hernia, Gastroesophageal Reflux Musculoskeletal: Yes Arthritis, Rheumatoid Arthritis Endocrine: Yes Diabetes, Non-Insulin dep HEENT: Yes Macular Degeneration Cancer: No Psychosocial: No Integumentary: Yes Psoriasis Blood Disorders: No Adverse Reaction/Blood Tranf: No Family Medical History Reviewed Nursing Family Hx Diabetes mellitus 19 MOTHER G8 BROTHER FH: pancreatic cancer 19 FATHER Diabetes Physical Exam Vital Signs - First Documented 11/25/18 14:48 Temp 98.7 Pulse 105 Resp 28 B/P (MAP) 166/105 (125) Pulse Ox 97 O2 Delivery Room Air Capillary Refill : Height: 5'7.00" Weight: 212lbs. 1.0oz. 96.060102ap; 33.2 BMI Method:Stated General Appearance: WD/WN, mild distress, obese HEENT: PERRL/EOMI, pharynx normal Neck: full range of motion, supple Respiratory: lungs clear, normal breath sounds Cardiovascular: regular rate, rhythm, no murmur Gastrointestinal: soft, distended Extremities: non-tender, normal inspection, pedal edema (2+) Neurologic/Psychiatric: alert, oriented x 3, other (irritable) Skin: warm/dry, other (yellow tented skin.) Progress/Results/Core Measures Suspected Sepsis SIRS Temperature: Pulse: Respiratory Rate: Laboratory Tests 11/25/18 15:10: White Blood Count 11.5H Blood Pressure / Mean: Laboratory Tests 11/25/18 15:10: Creatinine 3.01#H, Platelet Count 205, Total Bilirubin 1.1H Results/Orders Lab Results Laboratory Tests Test 11/25/18 14:55 11/25/18 15:10 Range/Units Urine Color YELLOW Urine Clarity CLEAR Urine pH 5 5-9 Urine Specific Whitefish 1.010 L 1.016-1.022 Urine Protein NEGATIVE NEGATIVE Urine Glucose (UA) 4+ H NEGATIVE Urine Ketones NEGATIVE NEGATIVE Urine Nitrite NEGATIVE NEGATIVE Urine Bilirubin NEGATIVE NEGATIVE Urine Urobilinogen NORMAL NORMAL MG/DL Urine Leukocyte Esterase 1+ H NEGATIVE Urine RBC (Auto) NEGATIVE NEGATIVE Urine RBC NONE /HPF Urine WBC 0-2 /HPF Urine Crystals NONE /LPF Urine Bacteria NEGATIVE /HPF Urine Casts NONE /LPF Urine Mucus NEGATIVE /LPF Urine Culture Indicated NO White Blood Count 11.5 H 4.3-11.0 10^3/uL Red Blood Count 3.73 L 4.35-5.85 10^6/uL Hemoglobin 10.9 L 13.3-17.7 G/DL Hematocrit 34 L 40-54 % Mean Corpuscular Volume 92 80-99 FL Mean Corpuscular Hemoglobin 29 25-34 PG Mean Corpuscular Hemoglobin Concent 32 32-36 G/DL Red Cell Distribution Width 14.9 H 10.0-14.5 % Platelet Count 205 130-400 10^3/uL Mean Platelet Volume 10.0 7.4-10.4 FL Neutrophils (%) (Auto) 90 H 42-75 % Lymphocytes (%) (Auto) 5 L 12-44 % Monocytes (%) (Auto) 4 0-12 % Eosinophils (%) (Auto) 0 0-10 % Basophils (%) (Auto) 1 0-10 % Neutrophils # (Auto) 10.4 H 1.8-7.8 X 10^3 Lymphocytes # (Auto) 0.6 L 1.0-4.0 X 10^3 Monocytes # (Auto) 0.5 0.0-1.0 X 10^3 Eosinophils # (Auto) 0.0 0.0-0.3 10^3/uL Basophils # (Auto) 0.1 0.0-0.1 10^3/uL Neutrophils % (Manual) 89 % Lymphocytes % (Manual) 2 % Monocytes % (Manual) 2 % Eosinophils % (Manual) 0 % Basophils % (Manual) 0 % Metamyelocytes % 3 % Myelocytes % % Band Neutrophils 4 % Anisocytosis SLIGHT Sodium Level 134 L 135-145 MMOL/L Potassium Level 4.3 3.6-5.0 MMOL/L Chloride Level 103 98-107 MMOL/L Carbon Dioxide Level 18 L 21-32 MMOL/L Anion Gap 13 5-14 MMOL/L Blood Urea Nitrogen 53 H 7-18 MG/DL Creatinine 3.01 #H 0.60-1.30 MG/DL Estimat Glomerular Filtration Rate 20 BUN/Creatinine Ratio 18 Glucose Level 450 *H 70-105 MG/DL Calcium Level 9.1 8.5-10.1 MG/DL Corrected Calcium 9.3 8.5-10.1 MG/DL Total Bilirubin 1.1 H 0.1-1.0 MG/DL Aspartate Amino Transf (AST/SGOT) 22 5-34 U/L Alanine Aminotransferase (ALT/SGPT) 19 0-55 U/L Alkaline Phosphatase 99 40-136 U/L C-Reactive Protein High Sensitivity 0.47 0.00-0.50 MG/DL B-Type Natriuretic Peptide 90.2 <100.0 PG/ML Total Protein 6.6 6.4-8.2 GM/DL Albumin 3.8 3.2-4.5 GM/DL My Orders Orders - MARILEE PRIDE MD BNP (11/25/18 15:34) Cbc With Automated Diff (11/25/18 15:34) Comprehensive Metabolic Panel (11/25/18 15:34) Hs C Reactive Protein (11/25/18 15:34) Ua Culture If Indicated (11/25/18 15:34) Chest Pa/Lat (2 View) (11/25/18 15:34) Saline Lock/Iv-Start (11/25/18 15:34) Monitor-Rhythm Ecg Trace Only (11/25/18 15:34) Ekg Tracing (11/25/18 15:51) Manual Differential (11/25/18 15:10) Insulin (Regular) Human (Humulin R (Per (11/25/18 16:37) Vital Signs/I&O 11/25/18 14:48 Temp 98.7 Pulse 105 Resp 28 B/P (MAP) 166/105 (125) Pulse Ox 97 O2 Delivery Room Air Capillary Refill : Progress Note : Progress Note Seen and evaluated. IV, labs, UA, chest x-ray ordered. Monitor patient. Patient' s blood sugar noted to be 450. Insulin 10 units subcutaneous ordered. Monitor patient. 1700: No acute findings on x-ray or labs. No indication of acute heart failure. 1735: There is thick blood sugar 378 although the patient did eat. No acute findings otherwise. He does report that he has not had a bowel movement for several days except for small stool today. Looking at the chest x-ray and considering exam findings, I do believe there is a fair amount of constipation. We did discuss options for treatment. He has tried prune juice at home. We will initiate MiraLAX treatment at home. Discharged home with return precautions. Patient and family verbalize understanding instructions and agreement with plan. Patient is on steroid treatment currently and I do believe this is increasing his blood sugar. ECG Initial ECG Impression Date: Nov 25, 2018 Initial ECG Impression Time: 16:00 Initial ECG Rate: 99 Initial ECG Rhythm: Normal Sinus Comment Sinus rhythm with borderline left axis deviation. No evidence of ST elevation PA. Similar to previous of 11/20/18. Interpreted by me. Diagnostic Imaging Diagonstic Imaging: Xray Plain Films/CT/US/NM/MRI: chest Comments [facility] [place], [place] NAME: JEANMARIE CABRERA [facility] REC#: [id number] PT STATUS: REG ER : 1932 PHYSICIAN: MARILEE PRIDE MD ADMIT DATE: 11/25/18/ER Draft Date of Exam:11/25/18 CHEST PA/LAT (2 VIEW) INDICATION: Dyspnea. EXAMINATION: PA and lateral views of the chest are obtained with comparison made to study of 11/18/2018. FINDINGS: There is suboptimal inspiration. There is bilateral parahilar and basilar atelectasis. No pneumothorax or consolidation is identified. There is no evidence of significant pleural fluid. IMPRESSION: Bilateral atelectasis may be related to hypoventilation. Otherwise, no acute abnormality is detected. Dictated on workstation # [id number] Dict: 11/25/18 1616 Trans: 11/25/18 1624 [id number] Interpreted by: NEFTALI NAVARRO MD Electronically signed by: Departure Impression Primary Impression: Dyspnea Qualified Codes: R06.00 - Dyspnea, unspecified Additional Impression: Constipation Qualified Codes: K59.00 - Constipation, unspecified Disposition: 01 HOME, SELF-CARE Condition: Stable Departure-Patient Inst. Referrals: ZECHARIAH ADAMS MD (PCP) Primary Care Physician Patient Instructions: Constipation, Adult (DC), Shortness of Breath (Dyspnea) ( DC) Add. Discharge Instructions: You likely have constipation as a part of her problem. You can continue the previous daily but you may also use MiraLAX or the generic one capful 3 times a day for the next 2 days and then once or twice daily thereafter to keep stools soft. You may increase or decrease the dose to get good results. Return for worse pain, fever, vomiting, weakness, breathing problems or other concerns as needed. Follow-up with your DrSurendra in a few days for recheck. Copy Copies To 1: VARSHA QUINONES TIMOTHY D MD Nov 25, 2018 15:19
[2018-11-25 15:44] LABS: BILIRUBIN,URINE NEGATIVE (NEGATIVE); CLARITY,URINE CLEAR; COLOR,URINE YELLOW; GLUCOSE, URINE (UA) 4+ (NEGATIVE); KETONES,URINE NEGATIVE (NEGATIVE); LEUKOCYTE ESTERASE ,URINE 1+ (NEGATIVE); NITRITE,URINE NEGATIVE (NEGATIVE); PH,URINE 5 (5-9); PROTEIN,URINE NEGATIVE (NEGATIVE); UROBILINOGEN,URINE NORMAL (NORMAL)
[2018-11-25 15:53] LABS: BASOPHILS # (AUTO) 0.1 10^3/uL (0.0-0.1); BASOPHILS % (AUTO) 1 % (0-10); EOSINOPHILS % (AUTO) 0 % (0-10); HEMATOCRIT 34 % (40-54); HEMOGLOBIN 10.9 G/DL (13.3-17.7); LYMPHOCYTES # (AUTO) 0.6 X 10^3 (1.0-4.0); LYMPHOCYTES % (AUTO) 5 % (12-44); MEAN CORPUSCULAR HEMOGLOBIN 29 PG (25-34); MEAN CORPUSCULAR HGB CONC 32 G/DL (32-36); MEAN CORPUSCULAR VOLUME 92 FL (80-99); MONOCYTES # (AUTO) 0.5 X 10^3 (0.0-1.0); MONOCYTES % (AUTO) 4 % (0-12); NEUTROPHILS # (AUTO) 10.4 X 10^3 (1.8-7.8); NEUTROPHILS % (AUTO) 90 % (42-75); PLATELET COUNT 205 10^3/uL (130-400); RED CELL DISTRIBUTION WIDTH 14.9 % (10.0-14.5); WHITE BLOOD COUNT 11.5 10^3/uL (4.3-11.0)
[2018-11-25 15:58] LABS: BACTERIA,URINE NEGATIVE /HPF; WBC,URINE 0-2 /HPF
[2018-11-25 16:05] LABS: ALBUMIN 3.8 GM/DL (3.2-4.5); BILIRUBIN,TOTAL 1.1 MG/DL (0.1-1.0); CALCIUM 9.1 MG/DL (8.5-10.1); CREATININE SERUM 3.01 MG/DL (0.60-1.30); POTASSIUM 4.3 MMOL/L (3.6-5.0); TOTAL PROTEIN 6.6 GM/DL (6.4-8.2)
[2018-11-25 16:22] LABS: BAND NEUTROPHILS 4 %; BASOPHILS % (MANUAL) 0 %; EOSINOPHILS % (MANUAL) 0 %; LYMPHOCYTES % (MANUAL) 2 %; MONOCYTES % (MANUAL) 2 %; NEUTROPHILS % (MANUAL) 89 %
[2018-11-25 16:23] LABS: ANISOCYTOSIS SLIGHT; METAMYELOCYTES % 3 %
--- NOTE | 2018-11-25 16:25 | Diagnostic Imaging Report ---
INDICATION: Dyspnea. EXAMINATION: PA and lateral views of the chest are obtained with comparison made to study of 11/18/2018. FINDINGS: There is suboptimal inspiration. There is bilateral parahilar and basilar atelectasis. No pneumothorax or consolidation is identified. There is no evidence of significant pleural fluid. IMPRESSION: Bilateral atelectasis may be related to hypoventilation. Otherwise, no acute abnormality is detected. Dictated by: Dictated on workstation # [id number]
[2018-11-25] MEDS ORDERED: inSUlin (REGULAR) HUMAN 1 UNIT/0.01 ML (CHARGE PER UNIT) SC STA (16:37)
[2018-11-25 18:00] VITALS: BP 157/93
== END 2018-11-25 18:00 | disposition home or self-care (01) ==
LOC: EDUNIT# 14:48 → ER 14:49
DX: R06.00 Dyspnea, unspecified (principal); K59.00 Constipation, unspecified; I12.0 Hypertensive chronic kidney disease with stage 5 chronic kidney disease or end stage renal disease; N18.6 End stage renal disease; K21.9 Gastro-esophageal reflux disease without esophagitis; M06.9 Rheumatoid arthritis, unspecified; E11.9 Type 2 diabetes mellitus without complications; Z80.0 Family history of malignant neoplasm of digestive organs; Z99.2 Dependence on renal dialysis; Z87.448 Personal history of other diseases of urinary system; Z79.51 Long term (current) use of inhaled steroids; Z79.01 Long term (current) use of anticoagulants; Z79.4 Long term (current) use of insulin; Z79.52 Long term (current) use of systemic steroids; Z87.891 Personal history of nicotine dependence; Z95.5 Presence of coronary angioplasty implant and graft; Z98.890 Other specified postprocedural states
CPT/HCPCS: 36415; 71046; 80053; 81000; 82962; 83880; 85007; 85027; 86141; 93005; 93041

== ENCOUNTER 2018-12-20 07:14 | Emergency (ER) | payer MEDICARE ==
[~2018-12-20] VITALS: Ht 170.2 cm; Wt 96.6 kg
[~2018-12-20 07:14] MED LIST changes: +ONDA4TAB11 PO; +POLY17PO6 PO; +TAMS0.4C98 PO
--- OUTSIDE RECORDS SUMMARY | 2018-12-20 07:25 | XMS REPORT ---
Author Author Migration, Doctor Organization [facility] [place] [facility] Address Unknown Phone Unavailable Care Team Providers Care Motor Carrier Inspector Name Role Phone Migration, Doctor Unavailable Unavailable PROBLEMS Type Condition ICD9-CM Code FGB53-LO Code Onset Dates Condition Status SNOMED Code Problem Type 2 diabetes mellitus with hyperglycemia, without long-term current use of insulin E11.65 Active 11761828 Problem 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 Active 526804339 Problem Rheumatoid arthritis, involving unspecified site, unspecified rheumatoid factor presence M06.9 Active 17150369 Problem Dialysis patient Z99.2 Active 986499540 Problem Benign prostatic hyperplasia with lower urinary tract symptoms N40.1 Active 43209734687879 Problem Gait disturbance R26.9 Active 20391236 Problem Primary insomnia F51.01 Active 0277616 Problem Type 2 diabetes mellitus with diabetic polyneuropathy, unspecified whether custodial insulin use E11.42 Active 57512487 Problem 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 Active 94779969 Problem Gastroesophageal reflux disease without esophagitis K21.9 Active 602494109 Problem End stage renal disease N18.6 Active 24255560 Problem Essential hypertension I10 Active 53877051 Problem Erectile dysfunction due to diseases classified elsewhere N52.1 Active 577662002 Problem Atherosclerosis of yurok artery of both lower extremities, with unspecified presence of clinical manifestation I70.203 Active 207492060043807 Problem Type 2 diabetes mellitus with diabetic chronic kidney disease, unspecified CKD stage, unspecified whether custodial insulin use E11.22 Active 33316330 ALLERGIES No Information ENCOUNTERS Encounter Location Date Diagnosis [facility] [place] [address] [facility] [id number], [place] [address] January, [facility] [place] [address] [facility] [id number], [place] [address] Nov, Gastroesophageal reflux disease without esophagitis K21.9 [facility] [address] [facility] [id number], [place] [address] Nov, Pain of right lower extremity M79.604 [facility] [place] [id number] [place] [address] Nov, Shortness of breath R06.02 [facility] [id number] [place] [address] Oct, Multiple skin nodules R22.9 [place] [address] [address] Oct, Cough R05 ; Pneumonia of both lower lobes due to infectious organism J18.1 and Type 2 diabetes mellitus with hyperglycemia, without long- term current use of insulin E11.65 [place] [address] [address] Oct, [place] [address] [address] Sep, Abscess L02.91 [place] [address] [address] Sep, Bronchitis J40 ; Abscess L02.91 and Arthralgia, unspecified joint M25.50 [place] [address] [address] Aug, Type 2 diabetes mellitus with hyperglycemia, without long- term current use of insulin E11.65 [place] [address] [id number] [place] [address] Aug, [place] [address] [address] Aug, Type 2 diabetes mellitus with hyperglycemia, without long- term current use of insulin E11.65 ; Seborrheic keratoses L82.1 ; Other viral warts B07.8 and End stage renal disease N18.6 [place] [address] [id number] [place] [address] Aug, Type 2 diabetes mellitus with hyperglycemia, without long- term current use of insulin E11.65 [place] [address] [place] [address] Jul, Type 2 diabetes mellitus with hyperglycemia, without long- term current use of insulin E11.65 [place] [address] [id number] [place] [address] Jul, Type 2 diabetes mellitus with hyperglycemia, without long- term current use of insulin E11.65 ; Erectile dysfunction due to diseases classified elsewhere N52.1 and History of abscess of skin and subcutaneous tissue Z87.2 [place] [id number] [place] [address] Jul, [place] [address] [id number] [place] [address] Jul, [place] [id number] [place] [address] Jun, Type 2 diabetes mellitus with hyperglycemia, without long- term current use of insulin E11.65 [place] [address] [id number] [place] [address] Jun, [place] [address] [id number] [place] [address] Jun, Type 2 diabetes mellitus with hyperglycemia, without long- term current use of insulin E11.65 [facility] [address] [place] [address] Jun, Dysuria R30.0 and Acute cystitis without hematuria N30.00 [place] [address] [place] [address] Jun, Type 2 diabetes mellitus with hyperglycemia, without long- term current use of insulin E11.65 [place] [address] [id number] [place] [address] May, [facility] [address] [place] [address] May, Bacterial skin infection of upper extremity L08.9 [place] [id number] [place] [address] May, Type 2 diabetes mellitus with hyperglycemia, without long- term current use of insulin E11.65 [place] [address] [place] [address] Apr, End stage renal disease N18.6 [facility] [place] [address] [place] [address] Apr, [facility] [place] [id number] [place] [address] Apr, [place] [address] [place] [address] Apr, Type 2 diabetes mellitus with hyperglycemia, without long- term current use of insulin E11.65 [place] [address] [place] [address] Apr, [place] [address] [id number] [place] [address] Apr, [place] [address] [place] [address] Apr, [facility] [place] [facility] [address] [place] [id number] Apr, Type 2 diabetes mellitus with hyperglycemia, [...] hyperplasia with lower urinary tract symptoms N40.1 [place] [address] [place] [address] Apr, [place] [address] [place] [id number] Mar, [place] [address] [id number] [place] [address] Mar, [facility] [place] [facility] [address] [id number] Mar, Type 2 diabetes mellitus with hyperglycemia, without long-term current use of insulin E11.65 ; End stage renal disease N18.6 and Shortness of breath R06.02 [place] [address] [address] Mar, 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 [facility] [place] [address] [address] Mar, [place] [address] [place] [address] Mar, [place] [address] [place] [address] Mar, [place] [address] [place] [address] Feb, [facility] [address] [place] [id number] Feb, Encounter for examination for admission to [facility] Z02.2 ; Type 2 diabetes mellitus with hyperglycemia, without long-term current use of insulin E11.65 ; 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 ; Osteopenia of multiple sites M85.89 ; End stage renal disease N18.6 ; Dialysis patient Z99.2 and Rheumatoid arthritis, involving unspecified site, unspecified rheumatoid factor presence M06.9 [place] [address] [address] Feb, [facility] [address] [place] [address] May, Dental examination Z01.20 [facility] [address] [place] [address] May, [facility] [address] [place] [address] 08 May, 2016 Dental examination Z01.20 [facility] [address] [place] [address] May, [facility] [place] [address] [place] [address] Apr, Dental examination Z01.20 [facility] [place] [address] [place] [address] Dec, Dental examination Z01.20 [facility] [address] [place] [address] Oct, Dental examination Z01.20 [facility] [address] [place] [address] Oct, Dental examination Z01.20 [facility] [address] [place] [address] Sep, Dental examination Z01.20 [facility] [place] [address] [place] [address] Aug, Dental examination Z01.20 [facility] [place] [address] [place] [address] Jul, Dental examination Z01.20 [facility] [place] [address] [place] [address] Jul, Dental examination Z01.20 [facility] [place] [address] [place] [address] Jun, Dental examination Z01.20 [facility] [place] [address] [address] 14 Dec, 2014 [facility] [place] [address] [address] Dec, [facility] [place] [address] [address] Mar, [facility] [place] [address] [address] Mar, [facility] [place] [address] [address] Mar, [facility] [place] [address] [address] Feb, [facility] [place] [address] [facility] [id number] [place] [id number] January, [facility] [place] [address] [facility] [id number] [address] January, IMMUNIZATIONS No Known Immunizations SOCIAL HISTORY Never Assessed REASON FOR VISIT [facility] [place] [facility] PLAN OF CARE VITAL SIGNS MEDICATIONS Medication Instructions Dosage Frequency Start Date End Date Duration Status metformin 1,000 mg take 1 tablet (1,000 mg) by oral route 2 times per day with morning and evening meals January, Active Lisinopril 50mg Once daily January, Active Vicodin 5-325 Mg Take 1 Tablet by Oral route every 4-6 hours as needed for pain. January, Active Aspirin 325 mg take 1 tablet (325 mg) by oral route once daily Mar, Active RESULTS No Results PROCEDURES No Known procedures INSTRUCTIONS MEDICATIONS ADMINISTERED No Known Medications MEDICAL (GENERAL) HISTORY Type Description Date Medical History Mild High Blood Pressure Medical History Diabetes Type 2 Medical History Arthritis Surgical History umbilical hernia Surgical History heart cath stent placed 11/2018 Hospitalization History Renal failure 02/2018 Hospitalization History Chest pain-[facility] 03/31/18
--- NOTE | 2018-12-20 07:39 | NUR ---
SEE LIST FOR CURRENT MEDS
[2018-12-20] MEDS ORDERED: ACETAMINOPHEN 325 MG TABLET ONE (07:53)
--- NOTE | 2018-12-20 08:31 | ED GI ---
General Chief Complaint: Abdominal/GI Problems Stated Complaint: BLOOD IN STOOL Nursing Triage Note: PT ARRIVED PER EMS, PT CO OF BRIGHT RED RECTAL BLEEDING Sepsis Screen: No Definite Risk Source of Information: Patient Exam Limitations: No Limitations History of Present Illness Date Seen by Provider: Dec 20, 2018 Time Seen by Provider: 07:00 Initial Comments Patient presents [facility] ER by EMS from [facility] with chief complaint of bright red blood per rectum. He's had some bright red blood per rectum about 6 months ago but did not have it worked up. He is not having any chest pain shortness of breath or history of anemia. He had a colonoscopy over 5 years ago that was unremarkable. He is on Eliquis. Is not having any abdominal distention or pain. He has had constipation lately and has been using MiraLAX and prune juice trying to have a bowel movement. He does have a history of hemorrhoids for which he uses Preparation H occasionally. Allergies and Home Medications Allergies Coded Allergies: No Known Drug Allergies (Verified , 11/18/18) Home Medications Acetaminophen 650 Mg Tablet.er, 1,300 MG PO DAILY PRN for PAIN-MILD, (Reported) Albuterol Sulfate 2.5 Mg/3 Ml Vial.neb, 2.5 MG NEB TID PRN for SHORTNESS OF BREATH, (Reported) Apixaban 2.5 Mg Tablet, 2.5 MG PO BID, (Reported) Aspirin 81 Mg Tablet.dr, 81 MG PO DAILY, (Reported) TAKE THROUGH THE END OF NOVEMBER Atorvastatin Calcium 10 Mg Tablet, 10 MG PO HS, (Reported) Bumetanide 2 Mg Tablet, 2 MG PO BID, (Reported) Calcitriol 0.25 Mcg Capsule, 0.25 MCG PO MoWeFr, (Reported) Glipizide 5 Mg Tablet, 5 MG PO BID, (Reported) Insulin Detemir 100 Unit/1 Ml Insuln.pen, 20 UNIT SQ BID, (Reported) Metoprolol Succinate 50 Mg Tab.er.24h, 50 MG PO DAILY, (Reported) Ondansetron 4 Mg Tab.rapdis, 4 MG PO Q6H PRN for NAUSEA/VOMITING-1ST LINE Prescribed by: JACKELINE CEE on 12/16/18 1156 Pantoprazole Sodium 40 Mg Tablet.dr, 40 MG PO DAILY, (Reported) Polyethylene Glycol 3350 17 Gm Powd.pack, 17 GM PO DAILY PRN for CONSTIPATION- 2ND LINE, (Reported) Prednisone 5 Mg Tablet, 5 MG PO BID, (Reported) Sucralfate 1 Gm Tablet, 1 GM PO ACHS, (Reported) Tamsulosin HCl 0.4 Mg Cap, 0.4 MG PO DAILY, (Reported) Ticagrelor 90 Mg Tablet, 90 MG PO BID, (Reported) Patient Home Medication List Home Medication List Reviewed: Yes Review of Systems Review of Systems Constitutional: No chills, No fever, No malaise EENTM: No Blurred Vision, No Double Vision Respiratory: Denies Cough, Denies Shortness of Air Cardiovascular: Denies Chest Pain, Denies Edema Gastrointestinal: Denies Constipated, Denies Diarrhea, Denies Nausea Genitourinary: Denies Burning, Denies Discharge Musculoskeletal: No back pain, No joint pain Skin: No pruritus, No rash Psychiatric/Neurological: Denies Anxiety, Denies Depressed Past Citpunn-Yshpdi-Wtapax Hx Patient Social History Alcohol Use: Occasionally Uses Alcohol Beverage of Choice: Beer, Wine Recreational Drug Use: No Smoking Status: Former Smoker Type Used: Cigars, Cigarettes Former Smoker, Quit: Apr 01, 1978 2nd Hand Smoke Exposure: No Recent Foreign Travel: No Contact w/Someone Who Travel: No Recent Infectious Disease Expo: No Recent Hopitalizations: Yes (11/2018) Immunizations Up To Date Tetanus Booster (TDap): Unknown PED Vaccines UTD: No Date of Pneumonia Vaccine: Jan 13, 2014 Date of Influenza Vaccine: Jul 06, 2018 Seasonal Allergies Seasonal Allergies: No Past Medical History Surgeries: Yes (hernia, dialysis shunt in left arm, umbilical hernia repair, ) Coronary Stent, Orthopedic Respiratory: No Currently Using CPAP: No Currently Using BIPAP: No Cardiac: Yes (STENT PLACED) Coronary Artery Disease, Hypertension Neurological: No Genitourinary: No (stopped dialysis 6 months ago) Benign Prostatic Hyperpl, Kidney Infection, Renal Failure, Dialysis Gastrointestinal: Yes Abdominal Hernia, Gastroesophageal Reflux Musculoskeletal: Yes Arthritis, Rheumatoid Arthritis Endocrine: Yes Diabetes, Non-Insulin dep HEENT: Yes Macular Degeneration Cancer: No Psychosocial: No Integumentary: Yes Psoriasis Blood Disorders: No Adverse Reaction/Blood Tranf: No Family Medical History Diabetes mellitus 19 MOTHER G8 BROTHER FH: pancreatic cancer 19 FATHER Diabetes Physical Exam Vital Signs Vital Signs - First Documented 12/20/18 07:15 Temp 97.0 Pulse 103 Resp 18 B/P (MAP) 124/87 (99) Pulse Ox 96 Capillary Refill : Less Than 3 Seconds Height/Weight/BMI Height: 5'7.00" Weight: 213lbs. 2.0oz. 96.350526uo; 33.1 BMI Method:Stated General Appearance: WD/WN, no apparent distress HEENT: PERRL/EOMI, normal ENT inspection, TMs normal, pharynx normal Neck: non-tender, full range of motion, supple Respiratory: lungs clear, normal breath sounds, no respiratory distress, no accessory muscle use Cardiovascular: normal peripheral pulses, regular rate, rhythm, no edema Peripheral Pulses: 2+ Radial Pulses (R), 2+ Radial Pulses (L) Gastrointestinal: normal bowel sounds, non tender, soft Rectal: normal rectal tone; No black stool; blood streaked stool, heme positive stool Extremities: normal range of motion, normal inspection, normal capillary refill Neurologic/Psychiatric: alert, oriented x 3 Progress/Results/Core Measures Results/Orders Lab Results Laboratory Tests Test 12/20/18 08:25 Range/Units White Blood Count 10.5 4.3-11.0 10^3/uL Red Blood Count 3.62 L 4.35-5.85 10^6/uL Hemoglobin 10.6 L 13.3-17.7 G/DL Hematocrit 33 L 40-54 % Mean Corpuscular Volume 91 80-99 FL Mean Corpuscular Hemoglobin 29 25-34 PG Mean Corpuscular Hemoglobin Concent 32 32-36 G/DL Red Cell Distribution Width 14.5 10.0-14.5 % Platelet Count 220 130-400 10^3/uL Mean Platelet Volume 9.1 7.4-10.4 FL Neutrophils (%) (Auto) 76 H 42-75 % Lymphocytes (%) (Auto) 13 12-44 % Monocytes (%) (Auto) 9 0-12 % Eosinophils (%) (Auto) 2 0-10 % Basophils (%) (Auto) 0 0-10 % Neutrophils # (Auto) 8.0 H 1.8-7.8 X 10^3 Lymphocytes # (Auto) 1.3 1.0-4.0 X 10^3 Monocytes # (Auto) 0.9 0.0-1.0 X 10^3 Eosinophils # (Auto) 0.2 0.0-0.3 10^3/uL Basophils # (Auto) 0.0 0.0-0.1 10^3/uL Sodium Level 139 135-145 MMOL/L Potassium Level 3.9 3.6-5.0 MMOL/L Chloride Level 97 L 98-107 MMOL/L Carbon Dioxide Level 24 21-32 MMOL/L Anion Gap 18 H 5-14 MMOL/L Blood Urea Nitrogen 49 H 7-18 MG/DL Creatinine 3.07 H 0.60-1.30 MG/DL Estimat Glomerular Filtration Rate 19 BUN/Creatinine Ratio 16 Glucose Level 288 H 70-105 MG/DL Calcium Level 9.7 8.5-10.1 MG/DL Corrected Calcium 10.0 8.5-10.1 MG/DL Total Bilirubin 0.7 0.1-1.0 MG/DL Aspartate Amino Transf (AST/SGOT) 17 5-34 U/L Alanine Aminotransferase (ALT/SGPT) 27 0-55 U/L Alkaline Phosphatase 111 40-136 U/L Total Protein 6.5 6.4-8.2 GM/DL Albumin 3.6 3.2-4.5 GM/DL My Orders Orders - AQUILES LAWTON Cbc With Automated Diff (12/20/18 07:26) Comprehensive Metabolic Panel (12/20/18 07:26) Occult Blood Stool (12/20/18 07:26) Acetaminophen Tablet/Caplet (Tylenol T (12/20/18 07:53) Medications Given in ED Current Medications Medications Dose Ordered Sig/Adrienne Route Start Time Stop Time Status Last Admin Dose Admin Acetaminophen 325 mg STK-MED ONCE .ROUTE 12/20/18 07:53 12/20/18 07:56 DC 12/20/18 07:55 325 MG Vital Signs/I&O 12/20/18 07:15 Temp 97.0 Pulse 103 Resp 18 B/P (MAP) 124/87 (99) Pulse Ox 96 Blood Pressure Mean: 99 Progress Progress Note : Time: 08:56 Progress Note The patient is a present with a nonacute nonsurgical abdomen with a history of bright red blood per rectum. The hemoglobin was 10.6, 2 days ago it was 10.8. Plan would be to set him up with Dr. Montilla who he is already familiar with for outpatient management. Fecal occult blood test was positive. Departure Impression Primary Impression: Bright red blood per rectum Additional Impressions: Anticoagulation adequate with anticoagulant therapy Chronic kidney disease, stage IV (severe) Disposition: 01 HOME, SELF-CARE Condition: Stable Departure-Patient Inst. Decision time for Depature: 09:32 Referrals: ZECHARIAH ADAMS MD (PCP/Family) Primary Care Physician Patient Instructions: Bloody Stools, Adult (DC) Add. Discharge Instructions: Call Dr. Montilla tomorrow and request an appointment this week to set up appropriate outpatient management. If you begin to have chest pain shortness of breath or other worrisome symptoms then you should return to the ER for further evaluation. Continue the pantoprazole as prescribed. All discharge instructions reviewed with patient and/or family. Voiced understanding. Copy Copies To 1: SILVERIO MONTILLA TITUS J Dec 20, 2018 08:31
[2018-12-20 08:35] LABS: BASOPHILS % (AUTO) 0 % (0-10); EOSINOPHILS # (AUTO) 0.2 10^3/uL (0.0-0.3); EOSINOPHILS % (AUTO) 2 % (0-10); HEMATOCRIT 33 % (40-54); HEMOGLOBIN 10.6 G/DL (13.3-17.7); LYMPHOCYTES # (AUTO) 1.3 X 10^3 (1.0-4.0); LYMPHOCYTES % (AUTO) 13 % (12-44); MEAN CORPUSCULAR HEMOGLOBIN 29 PG (25-34); MEAN CORPUSCULAR HGB CONC 32 G/DL (32-36); MEAN CORPUSCULAR VOLUME 91 FL (80-99); MEAN PLATELET VOLUME 9.1 FL (7.4-10.4); MONOCYTES # (AUTO) 0.9 X 10^3 (0.0-1.0); MONOCYTES % (AUTO) 9 % (0-12); NEUTROPHILS % (AUTO) 76 % (42-75); PLATELET COUNT 220 10^3/uL (130-400); RED CELL DISTRIBUTION WIDTH 14.5 % (10.0-14.5); WHITE BLOOD COUNT 10.5 10^3/uL (4.3-11.0)
[2018-12-20 08:52] LABS: ALBUMIN 3.6 GM/DL (3.2-4.5); BILIRUBIN,TOTAL 0.7 MG/DL (0.1-1.0); CALCIUM 9.7 MG/DL (8.5-10.1); CREATININE SERUM 3.07 MG/DL (0.60-1.30); POTASSIUM 3.9 MMOL/L (3.6-5.0); TOTAL PROTEIN 6.5 GM/DL (6.4-8.2)
--- NOTE | 2018-12-20 09:05 | NUR ---
VIA [facility] NOTIFIED OF DISCHARGE
[2018-12-20 09:44] VITALS: BP 124/87
== END 2018-12-20 09:44 | disposition home or self-care (01) ==
LOC: EDUNIT# 07:14 → ER 07:15
DX: K62.5 Hemorrhage of anus and rectum (principal); I25.10 Atherosclerotic heart disease of native coronary artery without angina pectoris; E11.22 Type 2 diabetes mellitus with diabetic chronic kidney disease; I12.0 Hypertensive chronic kidney disease with stage 5 chronic kidney disease or end stage renal disease; N18.6 End stage renal disease; K21.9 Gastro-esophageal reflux disease without esophagitis; M06.9 Rheumatoid arthritis, unspecified; Z80.0 Family history of malignant neoplasm of digestive organs; Z99.2 Dependence on renal dialysis; Z87.19 Personal history of other diseases of the digestive system; Z79.01 Long term (current) use of anticoagulants; Z79.82 Long term (current) use of aspirin; Z79.4 Long term (current) use of insulin; Z79.52 Long term (current) use of systemic steroids; Z87.891 Personal history of nicotine dependence; Z95.5 Presence of coronary angioplasty implant and graft
CPT/HCPCS: 36415; 80053; 85025

== ENCOUNTER 2018-12-26 15:20 | Inpatient (IN) | payer MEDICARE ==
[~2018-12-26] VITALS: Ht 170.2 cm; Wt 91.0 kg
[2018-12-26] MEDS ORDERED: ONDANSETRON 4 MG/2 ML (SDV) Z0FRAN IVP ONE (15:45)
[2018-12-26] MEDS ORDERED: FAMOTIDINE 20MG/2ML IV (PEPCID) IVP ONE (15:45)
[2018-12-26 15:47] LABS: BASOPHILS % (AUTO) 0 % (0-10); EOSINOPHILS # (AUTO) 0.1 10^3/uL (0.0-0.3); EOSINOPHILS % (AUTO) 0 % (0-10); HEMATOCRIT 24 % (40-54); HEMOGLOBIN 7.8 G/DL (13.3-17.7); LYMPHOCYTES # (AUTO) 1.4 X 10^3 (1.0-4.0); LYMPHOCYTES % (AUTO) 8 % (12-44); MEAN CORPUSCULAR HEMOGLOBIN 30 PG (25-34); MEAN CORPUSCULAR HGB CONC 32 G/DL (32-36); MEAN CORPUSCULAR VOLUME 92 FL (80-99); MEAN PLATELET VOLUME 9.5 FL (7.4-10.4); MONOCYTES % (AUTO) 6 % (0-12); NEUTROPHILS # (AUTO) 15.2 X 10^3 (1.8-7.8); NEUTROPHILS % (AUTO) 86 % (42-75); PLATELET COUNT 279 10^3/uL (130-400); RED CELL DISTRIBUTION WIDTH 14.8 % (10.0-14.5); WHITE BLOOD COUNT 17.6 10^3/uL (4.3-11.0)
--- NOTE | 2018-12-26 16:00 | ED General ---
General Chief Complaint: General Problems/Pain Stated Complaint: TACHYCARDIC/SOA Nursing Triage Note: PT TO [facility] BY [facility]CHA[facility] FROM [facility]. DAUGHTER STATES PT IS HAVING ABD PAIN, WEAKNESS, SOA, TACHYCARDIA, AND HIS COLORING BEING OFF. Nursing Sepsis Screen: No Definite Risk Source of Information: Patient, Family, Old Records Exam Limitations: No Limitations History of Present Illness Date Seen by Provider: Dec 26, 2018 Time Seen by Provider: 15:35 Initial Comments This 88-year-old gentleman presents to the emergency room with multiple complaints. He has been living at [facility] since having a coronary angiography procedure in October. He has had weakness and debility and difficulty recovering since then. He has had numerous visits to the hospital since then. On November 25 he was seen and evaluated in the ER for dyspnea. On December [address] of the chest, abdomen and pelvis demonstrating diverticulosis with no diverticulitis. He also had enlarged prostate noted. No other acute abnormalities were appreciated. On December 14 he had a venous Doppler of the right lower extremity demonstrating no DVT. He has had bruising of the right leg since his catheterization. On December 15 he was diagnosed with influenza B and admitted. On December 20 he was seen in the ER for bright red blood per rectum. He was scheduled to have colonoscopy with Dr. Chaudhry later next week. He has been taken off of Eliquis and aspirin. He continues with purulent because of the stenting performed in October. Patient complains of persistent rectal bleeding. He has been nauseated today without vomiting. Blood sugar today was 320. He has abdominal pain in the left upper quadrant. He feels short of breath. His significant other and staff at [facility] report that his skin has an orange hue to it. Allergies and Home Medications Allergies Coded Allergies: No Known Drug Allergies (Verified , 11/18/18) Home Medications Acetaminophen 650 Mg Tablet.er, 1,300 MG PO DAILY PRN for PAIN-MILD, (Reported) Albuterol Sulfate 2.5 Mg/3 Ml Vial.neb, 2.5 MG NEB TID PRN for SHORTNESS OF BREATH, (Reported) Apixaban 2.5 Mg Tablet, 2.5 MG PO BID, (Reported) Aspirin 81 Mg Tablet.dr, 81 MG PO DAILY, (Reported) TAKE THROUGH THE END OF NOVEMBER Atorvastatin Calcium 10 Mg Tablet, 10 MG PO HS, (Reported) Bumetanide 2 Mg Tablet, 2 MG PO BID, (Reported) Calcitriol 0.25 Mcg Capsule, 0.25 MCG PO MoWeFr, (Reported) Glipizide 5 Mg Tablet, 5 MG PO BID, (Reported) Insulin Detemir 100 Unit/1 Ml Insuln.pen, 20 UNIT SQ BID, (Reported) Metoprolol Succinate 50 Mg Tab.er.24h, 50 MG PO DAILY, (Reported) Ondansetron 4 Mg Tab.rapdis, 4 MG PO Q6H PRN for NAUSEA/VOMITING-1ST LINE Prescribed by: JACKELINE CEE on 12/16/18 1156 Pantoprazole Sodium 40 Mg Tablet.dr, 40 MG PO DAILY, (Reported) Polyethylene Glycol 3350 17 Gm Powd.pack, 17 GM PO DAILY PRN for CONSTIPATION- 2ND LINE, (Reported) Prednisone 5 Mg Tablet, 5 MG PO BID, (Reported) Sucralfate 1 Gm Tablet, 1 GM PO ACHS, (Reported) Tamsulosin HCl 0.4 Mg Cap, 0.4 MG PO DAILY, (Reported) Ticagrelor 90 Mg Tablet, 90 MG PO BID, (Reported) Patient Home Medication List Home Medication List Reviewed: Yes Review of Systems Review of Systems Constitutional: see HPI, weakness EENTM: no symptoms reported Respiratory: see HPI, short of breath Cardiovascular: see HPI, other (recent stent) Gastrointestinal: see HPI, abdominal pain Genitourinary: no symptoms reported Musculoskeletal: no symptoms reported Skin: other (extensive ecchymosis) Psychiatric/Neurological: No Symptoms Reported Hematologic/Lymphatic: No Symptoms Reported Past Waetrfm-Yscekc-Jebfyu Hx Past Med/Social Hx: Reviewed and Corrections made Patient Social History Alcohol Use: Occasionally Uses Number of Drinks Today: Alcohol Beverage of Choice: Beer, Wine Recreational Drug Use: No Smoking Status: Former Smoker Type Used: Cigars, Cigarettes Former Smoker, Quit: Apr 01, 1978 2nd Hand Smoke Exposure: No Recent Foreign Travel: No Contact w/Someone Who Travel: No Recent Infectious Disease Expo: No Recent Hopitalizations: No Immunizations Up To Date Tetanus Booster (TDap): Unknown PED Vaccines UTD: No Date of Pneumonia Vaccine: Jan 13, 2014 Date of Influenza Vaccine: Jul 06, 2018 Seasonal Allergies Seasonal Allergies: No Past Medical History Surgeries: Yes Coronary Stent, Orthopedic Respiratory: No Currently Using CPAP: No Currently Using BIPAP: No Cardiac: Yes Coronary Artery Disease, Hypertension Neurological: No Genitourinary: Yes Benign Prostatic Hyperpl, Kidney Infection, Renal Failure, Dialysis Gastrointestinal: Yes Abdominal Hernia, Gastroesophageal Reflux, Gastrointestinal Bleed, Diverticulosis Musculoskeletal: Yes Arthritis, Rheumatoid Arthritis Endocrine: Yes Diabetes, Non-Insulin dep HEENT: Yes Macular Degeneration Cancer: No Psychosocial: No Integumentary: No Psoriasis Blood Disorders: No Adverse Reaction/Blood Tranf: No Family Medical History Diabetes mellitus 19 MOTHER G8 BROTHER FH: pancreatic cancer 19 FATHER Diabetes Physical Exam Vital Signs Vital Signs - First Documented 12/26/18 15:23 Temp 99.6 Pulse 117 Resp 32 B/P (MAP) 154/87 (109) Pulse Ox 97 O2 Delivery Room Air Capillary Refill : Less Than 3 Seconds Height, Weight, BMI Height: 5'7.00" Weight: 200lbs. 2.0oz. 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82 Laboratory Tests 12/26/18 15:35: Creatinine 3.09H, Platelet Count 279, Total Bilirubin 0.8 12/26/18 15:39: INR Comment 0.9 Results/Orders Lab Results Laboratory Tests Test 12/26/18 15:35 12/26/18 15:39 12/26/18 17:23 Range/Units White Blood Count 17.6 H 4.3-11.0 10^3/uL Red Blood Count 2.64 L 4.35-5.85 10^6/uL Hemoglobin 7.8 #L 13.3-17.7 G/DL Hematocrit 24 L 40-54 % Mean Corpuscular Volume 92 80-99 FL Mean Corpuscular Hemoglobin 30 25-34 PG Mean Corpuscular Hemoglobin Concent 32 32-36 G/DL Red Cell Distribution Width 14.8 H 10.0-14.5 % Platelet Count 279 130-400 10^3/uL Mean Platelet Volume 9.5 7.4-10.4 FL Neutrophils (%) (Auto) 86 H 42-75 % Lymphocytes (%) (Auto) 8 L 12-44 % Monocytes (%) (Auto) 6 0-12 % Eosinophils (%) (Auto) 0 0-10 % Basophils (%) (Auto) 0 0-10 % Neutrophils # (Auto) 15.2 H 1.8-7.8 X 10^3 Lymphocytes # (Auto) 1.4 1.0-4.0 X 10^3 Monocytes # (Auto) 1.0 0.0-1.0 X 10^3 Eosinophils # (Auto) 0.1 0.0-0.3 10^3/uL Basophils # (Auto) 0.0 0.0-0.1 10^3/uL Neutrophils % (Manual) 87 % Lymphocytes % (Manual) 8 % Monocytes % (Manual) 1 % Eosinophils % (Manual) 0 % Basophils % (Manual) 0 % Metamyelocytes % 1 % Band Neutrophils 3 % Polychromasia SLIGHT Anisocytosis SLIGHT Sodium Level 136 135-145 MMOL/L Potassium Level 3.1 L 3.6-5.0 MMOL/L Chloride Level 99 98-107 MMOL/L Carbon Dioxide Level 21 21-32 MMOL/L Anion Gap 16 H 5-14 MMOL/L Blood Urea Nitrogen 61 H 7-18 MG/DL Creatinine 3.09 H 0.60-1.30 MG/DL Estimat Glomerular Filtration Rate 19 BUN/Creatinine Ratio 20 Glucose Level 279 H 70-105 MG/DL Lactic Acid Level 1.82 0.50-2.00 MMOL/L Calcium Level 9.3 8.5-10.1 MG/DL Corrected Calcium 9.5 8.5-10.1 MG/DL Magnesium Level 1.8 1.8-2.4 MG/DL Total Bilirubin 0.8 0.1-1.0 MG/DL Aspartate Amino Transf (AST/SGOT) 15 5-34 U/L Alanine Aminotransferase (ALT/SGPT) 15 0-55 U/L Alkaline Phosphatase 79 40-136 U/L B-Type Natriuretic Peptide 85.4 <100.0 PG/ML Total Protein 6.7 6.4-8.2 GM/DL Albumin 3.7 3.2-4.5 GM/DL Lipase 34 8-78 U/L Prothrombin Time 12.9 12.2-14.7 SEC INR Comment 0.9 0.8-1.4 Activated Partial Thromboplast Time 32 24-35 SEC C-Reactive Protein High Sensitivity 9.12 H 0.00-0.50 MG/DL Urine Color YELLOW Urine Clarity CLEAR Urine pH 5 5-9 Urine Specific [place] 1.010 L 1.016-1.022 Urine Protein 1+ H NEGATIVE Urine Glucose (UA) 1+ H NEGATIVE Urine Ketones NEGATIVE NEGATIVE Urine Nitrite NEGATIVE NEGATIVE Urine Bilirubin NEGATIVE NEGATIVE Urine Urobilinogen NORMAL NORMAL MG/DL Urine Leukocyte Esterase 1+ H NEGATIVE Urine RBC (Auto) NEGATIVE NEGATIVE Urine RBC NONE /HPF Urine WBC 2-5 /HPF Urine Crystals NONE /LPF Urine Bacteria TRACE /HPF Urine Casts PRESENT /LPF Urine Hyaline Casts 2-5 H /LPF Urine Mucus SMALL H /LPF Urine Culture Indicated NO My Orders Orders - TORIN OLMOS MD BNP (12/26/18 15:39) Cbc With Automated Diff (12/26/18 15:39) Comprehensive Metabolic Panel (12/26/18 15:39) Lipase (12/26/18 15:39) Magnesium (12/26/18 15:39) Ua Culture If Indicated (12/26/18 15:39) Chest 1 View, Ap/Pa Only (12/26/18 15:39) Ondansetron Injection (Zofran Injectio (12/26/18 15:45) Famotidine Injection (Pepcid Injection) (12/26/18 15:45) Saline Lock/Iv-Start (12/26/18 15:39) Hs C Reactive Protein (12/26/18 15:48) Protime With Inr (12/26/18 15:51) Partial Thromboplastin Time (12/26/18 15:51) Manual Differential (12/26/18 15:35) Red Cells Leukocytes Reduced (12/26/18 16:01) Type And Screen (12/26/18 16:01) Blood Culture (12/26/18 16:07) Ct Abdomen/Pelvis Wo (12/26/18 16:16) Ns Iv 500 Ml (Sodium Chloride 0.9%) (12/26/18 17:10) Lactic Acid Analyzer (12/26/18 17:53) Piperacillin/Tazobactam (Bulk) (Zosyn In (12/26/18 18:30) Potassium Chloride (Tablet) (Klor Con Ta (12/26/18 18:30) Ns (Ivpb) (Sodium Chloride 0.9% Ivpb Bag (12/26/18 18:36) Piperacillin Sodium/Tazobactam (Zosyn Vi (12/26/18 18:36) Medications Given in ED Current Medications Medications Dose Ordered Sig/Adrienne Route Start Time Stop Time Status Last Admin Dose Admin Famotidine 20 mg ONCE ONCE IVP 12/26/18 15:45 12/26/18 15:46 DC 12/26/18 15:50 20 MG Ondansetron HCl 8 mg ONCE ONCE IVP 12/26/18 15:45 12/26/18 15:46 DC 12/26/18 15:50 8 MG Sodium Chloride 500 ml @ 0 mls/hr Q0M ONCE IV 12/26/18 17:10 12/26/18 17:12 DC 12/26/18 17:37 500 MLS/HR Vital Signs/I&O 12/26/18 15:23 Temp 99.6 Pulse 117 Resp 32 B/P (MAP) 154/87 (109) Pulse Ox 97 O2 Delivery Room Air Capillary Refill : Less Than 3 Seconds Blood Pressure Mean: 109 Progress Note #1: Time: 16:13 Progress Note Patient's CBC has been reviewed. He has dropped approximately 3 g on his hemoglobin measurement since December 20. He also has a significantly elevated WBC. Septic workup will be pursued further with blood cultures and lactic acid. I recommended patient be transfused with a unit of blood because of his tachycardia and underlying cardiac conditions. Patient agrees. Lab is strongly crossmatch now. Patient additionally reports now that about 3 weeks ago he had a very heavy nosebleed in which his nose bled for several hours and he just allowed it to drip into a trash can. Progress Note #2: Progress Note Patient was found to be septic related to diverticulitis identified on CT scan. Renal dosing of Zosyn was started in the ER. Potassium was replaced orally. Blood transfusion was ordered. One unit is to be given now and one unit to be held. I discussed antiplatelet therapy with Dr. Jara. He recommends changing to Plavix and discontinuing Brilinta. Dr. Shearer was consulted for the diverticulitis and GI bleed. Case was also discussed with Dr. Swenson who accepts the admission. Diagnostic Imaging Diagonstic Imaging: Xray Plain Films/CT/US/NM/MRI: chest Comments Chest x-ray viewed by me and report reviewed. See report below: NAME: JEANMARIE CABRERA [facility] REC#: [id number] PT STATUS: REG ER : 1932 PHYSICIAN: TORIN OLMOS MD ADMIT DATE: 12/26/18/ER Draft Date of Exam:12/26/18 CHEST 1 VIEW, AP/PA ONLY INDICATION: Shortness of breath. Comparison made with prior examination from 12/13/2018. FINDINGS: Heart size is normal. There is bibasilar atelectasis and/or pneumonitis. There is no pleural effusion or pneumothorax. Mediastinum is unremarkable. IMPRESSION: Bibasilar atelectasis and/or pneumonitis. Dictated on workstation # [id number] Dict: 12/26/18 1601 Trans: 12/26/18 1609 [id number] Interpreted by: JOSE ESPINOZA MD Diagonstic Imaging: CT Plain Films/CT/US/NM/MRI: abdomen, pelvis Comments CT abdomen and pelvis viewed by me and report reviewed. See report below: NAME: JEANMARIE CABRERA [facility] REC#: [id number] PT STATUS: REG ER : 1932 PHYSICIAN: TORIN OLMOS MD ADMIT DATE: 12/26/18/ER Draft Date of Exam:12/26/18 CT ABDOMEN/PELVIS WO PROCEDURE: CT abdomen and pelvis without contrast. TECHNIQUE: Multiple contiguous axial images were obtained through the abdomen and pelvis without the use of intravenous contrast. Auto Exposure Controls were utilized during the CT exam to meet ALARA standards for radiation dose reduction. INDICATION: Abdominal pain, weakness, shortness of air, and tachycardia. COMPARISON STUDY: CT of the chest, abdomen, and pelvis from December 13, 2018. FINDINGS: The lung bases are clear. Coronary calcifications are again identified. Heart size is normal. There is a calcification near the cystic duct. This was present previously. This is probably outside of the cystic duct. No inflammatory changes are present. The liver, spleen, pancreas, adrenal glands, and kidneys appear unremarkable. A tiny left renal cyst is present. Diverticula are present in the colon near the descending and proximal sigmoid colon. Some inflammation is seen around these. No fluid collection, free air, or ascites is present. Urinary bladder appears normal. No hernias are present. Degenerative changes are present in the spine. IMPRESSION: 1. Sigmoid diverticulitis is present. No free air, ascites, or loculated fluid collections are present. 2. There is a calcification near the cystic duct which was seen previously. This is probably outside of the duct. Dictated on workstation # [id number] Dict: 12/26/18 1721 Trans: 12/26/18 1740 [id number] Interpreted by: SILVA QUIROZ MD Departure Communication (Admissions) Time/Spoke to Admitting Phy: 17:50 Dr. Swenson Time/Spoke to Consulting Phy: 18:[address] Jara Impression Primary Impression: Sepsis Qualified Codes: A41.9 - Sepsis, unspecified organism Additional Impressions: Severe anemia Rectal bleeding Diverticulitis Hypokalemia Chronic renal failure Qualified Codes: N18.9 - Chronic kidney disease, unspecified Disposition: ADMITTED INPATIENT Condition: Improved Admissions Decision to Admit Reason: Admit from ER (General) Decision to Admit/Date: Dec 26, 2018 Time/Decision to Admit Time: 16:00 Departure-Patient Inst. Referrals: ZECHARIAH ADAMS MD (PCP/Family) Primary Care Physician TORIN OLMOS MD Dec 26, 2018 16:00
[2018-12-26 16:05] LABS: ALBUMIN 3.7 GM/DL (3.2-4.5); BILIRUBIN,TOTAL 0.8 MG/DL (0.1-1.0); CALCIUM 9.3 MG/DL (8.5-10.1); CREATININE SERUM 3.09 MG/DL (0.60-1.30); MAGNESIUM 1.8 MG/DL (1.8-2.4); POTASSIUM 3.1 MMOL/L (3.6-5.0); TOTAL PROTEIN 6.7 GM/DL (6.4-8.2)
--- NOTE | 2018-12-26 16:09 | Diagnostic Imaging Report ---
INDICATION: Shortness of breath. Comparison made with prior examination from 12/13/2018. FINDINGS: Heart size is normal. There is bibasilar atelectasis and/or pneumonitis. There is no pleural effusion or pneumothorax. Mediastinum is unremarkable. IMPRESSION: Bibasilar atelectasis and/or pneumonitis. Dictated by: Dictated on workstation # [id number]
[2018-12-26 16:11] LABS: BAND NEUTROPHILS 3 %; EOSINOPHILS % (MANUAL) 0 %; LYMPHOCYTES % (MANUAL) 8 %; MONOCYTES % (MANUAL) 1 %; NEUTROPHILS % (MANUAL) 87 %
[2018-12-26 16:12] LABS: ANISOCYTOSIS SLIGHT; BASOPHILS % (MANUAL) 0 %; METAMYELOCYTES % 1 %; POLYCHROMASIA SLIGHT
[2018-12-26 16:15] LABS: INR 0.9 (0.8-1.4); PROTHROMBIN TIME PATIENT 12.9 SEC (12.2-14.7)
[2018-12-26] MEDS ORDERED: NS IV 500 ML 500 ML IV ONE (17:10)
[2018-12-26 17:33] LABS: BILIRUBIN,URINE NEGATIVE (NEGATIVE); CLARITY,URINE CLEAR; COLOR,URINE YELLOW; GLUCOSE, URINE (UA) 1+ (NEGATIVE); KETONES,URINE NEGATIVE (NEGATIVE); LEUKOCYTE ESTERASE ,URINE 1+ (NEGATIVE); NITRITE,URINE NEGATIVE (NEGATIVE); PH,URINE 5 (5-9); PROTEIN,URINE 1+ (NEGATIVE); UROBILINOGEN,URINE NORMAL (NORMAL)
--- NOTE | 2018-12-26 17:41 | Diagnostic Imaging Report ---
PROCEDURE: CT abdomen and pelvis without contrast. TECHNIQUE: Multiple contiguous axial images were obtained through the abdomen and pelvis without the use of intravenous contrast. Auto Exposure Controls were utilized during the CT exam to meet ALARA standards for radiation dose reduction. INDICATION: Abdominal pain, weakness, shortness of air, and tachycardia. COMPARISON STUDY: CT of the chest, abdomen, and pelvis from December 13, 2018. FINDINGS: The lung bases are clear. Coronary calcifications are again identified. Heart size is normal. There is a calcification near the cystic duct. This was present previously. This is probably outside of the cystic duct. No inflammatory changes are present. The liver, spleen, pancreas, adrenal glands, and kidneys appear unremarkable. A tiny left renal cyst is present. Diverticula are present in the colon near the descending and proximal sigmoid colon. Some inflammation is seen around these. No fluid collection, free air, or ascites is present. Urinary bladder appears normal. No hernias are present. Degenerative changes are present in the spine. IMPRESSION: 1. Sigmoid diverticulitis is present. No free air, ascites, or loculated fluid collections are present. 2. There is a calcification near the cystic duct which was seen previously. This is probably outside of the duct. Dictated by: Dictated on workstation # [id number]
[2018-12-26 17:49] LABS: BACTERIA,URINE TRACE /HPF
[2018-12-26] MEDS ORDERED: PIPERACILLIN/TAZOBACTAM (BULK) 2.25 GM in NS (IVPB) 100 ML IV ONE (18:30)
[2018-12-26] MEDS ORDERED: KCL 10 MEQ TAB (MICRO K) PO ONE (18:30)
[2018-12-26] MEDS ORDERED: PIPERACILLIN/TAZO 4.5 GM VIAL (ZOSYN) IV ONE (18:36)
[2018-12-26] MEDS ORDERED: NS (IVPB) 100 ML ONE (18:36)
[2018-12-26] MEDS ORDERED: NS W/KCL 20 MEQ/L 1,000 ML IV ONE (19:49)
--- NOTE | 2018-12-26 19:57 | NUR ---
JEANMARIE CABRERA admitted to room 419-1, with an admitting diagnosis of Sepsis, Lower GI bleed, anemia, and diverticulosis, on 12/26/18 from ED via wheel chair, accompanied by staff. JEANMARIE CABRERA introduced to surroundings, call light, bed controls, phone, TV, temperature control, lights, meal times, smoking policy, visitor policy, side rail policy, bathrooms and showers. Patient Rights given to patient in the handbook. JEANMARIE CABRERA verbalizes understanding that [facility] is not responsible for the loss or damage to any personal effects or valuables that are kept in the patients posession during their hospitalization. Pertinent Care Plans were discussed with the patient. JEANMARIE CABRERA verbalizes understanding of Interdisciplinary Patient Education. Patient was informed about the Rapid Response Team and its purpose.
[2018-12-26 20:00] VITALS: BP 149/70
[2018-12-26] MEDS ORDERED: NS W/KCL 20 MEQ/L 1,000 ML IV SCH (20:30)
[2018-12-26] MEDS ORDERED: ONDANSETRON 4 MG/2 ML (SDV) Z0FRAN IV PRN (20:30)
--- NOTE | 2018-12-26 20:31 | CONSULTATION REPORT ---
DATE OF SERVICE: 12/26/2018 HISTORY OF PRESENT ILLNESS: The patient is an 88-year-old male who presented to the Emergency Department with shortness of breath especially upon exertion as well as a weakness. He also has pain in the lower quadrants of the abdomen. He does have an extensive past medical history and on 12/14, he did have some swelling in the left lower extremity; however, ultrasound did not show any DVT. DICTATION ENDS HERE. Job ID: [id number] DocumentID: [id number] Dictated Date: 12/26/2018 18:19:47 Allocation Analyst Date: 12/26/2018 20:30:21 Dictated By: MAGDA CRAIG MD
[2018-12-26] MEDS: fentaNYL INJECTION 100 MCG/2 ML AMP IV PRN (21:22)
[2018-12-26] MEDS: metroNIDAZOLE 500 MG/100 ML IVPB (PRE-MIX) IV SCH (21:22)
[2018-12-26] MEDS ORDERED: NS IV 500 ML 500 ML ONE (22:31)
[2018-12-26 22:51] VITALS: BP 128/68
[2018-12-26 22:56] VITALS: BP 128/68
[2018-12-26 23:08] VITALS: BP 148/78
[2018-12-26 23:12] VITALS: BP 148/78
[2018-12-27] VITALS (9 sets, daily range): BP systolic 125–146; BP diastolic 65–82
[2018-12-27] MEDS ORDERED: NS (IVPB) 100 ML ONE (01:28)
[2018-12-27] MEDS ORDERED: PIPERACILLIN/TAZO 4.5 GM VIAL (ZOSYN) IV ONE (01:28)
[2018-12-27] MEDS: PIPERACILLIN/TAZO 4.5 GM/NS 100 ML IV SCH ×6 (01:36→21:00)
[2018-12-27] MEDS: metroNIDAZOLE 500 MG/100 ML IVPB (PRE-MIX) IV SCH ×3 (04:38→19:48)
[2018-12-27 06:49] LABS: BASOPHILS % (AUTO) 0 % (0-10); EOSINOPHILS # (AUTO) 0.1 10^3/uL (0.0-0.3); EOSINOPHILS % (AUTO) 1 % (0-10); LYMPHOCYTES # (AUTO) 1.7 X 10^3 (1.0-4.0); LYMPHOCYTES % (AUTO) 10 % (12-44); MEAN CORPUSCULAR HEMOGLOBIN 30 PG (25-34); MEAN CORPUSCULAR HGB CONC 31 G/DL (32-36); MEAN CORPUSCULAR VOLUME 94 FL (80-99); MEAN PLATELET VOLUME 9.3 FL (7.4-10.4); MONOCYTES # (AUTO) 1.2 X 10^3 (0.0-1.0); MONOCYTES % (AUTO) 7 % (0-12); NEUTROPHILS # (AUTO) 13.6 X 10^3 (1.8-7.8); NEUTROPHILS % (AUTO) 82 % (42-75); PLATELET COUNT 286 10^3/uL (130-400); RED CELL DISTRIBUTION WIDTH 14.6 % (10.0-14.5); WHITE BLOOD COUNT 16.6 10^3/uL (4.3-11.0)
[2018-12-27 06:55] LABS: HEMOGLOBIN 6.4 G/DL (13.3-17.7)
[2018-12-27 06:56] LABS: HEMATOCRIT 20 % (40-54)
[2018-12-27 07:13] LABS: ALBUMIN 3.2 GM/DL (3.2-4.5); BILIRUBIN,TOTAL 1.3 MG/DL (0.1-1.0); CALCIUM 8.5 MG/DL (8.5-10.1); CREATININE SERUM 2.83 MG/DL (0.60-1.30); POTASSIUM 3.2 MMOL/L (3.6-5.0); TOTAL PROTEIN 5.8 GM/DL (6.4-8.2)
[2018-12-27] MEDS ORDERED: NS IV 500 ML 500 ML ONE (07:43)
[2018-12-27] MEDS: fentaNYL INJECTION 100 MCG/2 ML AMP IV PRN (07:54)
[2018-12-27] MEDS ORDERED: CLOPIDOGREL 75 MG (PLAVIX) TABLET PO SCH ×2 (09:00→18:00)
--- NOTE | 2018-12-27 10:36 | CONSULTATION REPORT ---
DATE OF SERVICE: 12/26/2018 The patient is an 88-year-old male who presented to the Emergency Department with exertional shortness of breath as well as weakness. He also had reported pain in the left lower quadrants of the abdomen. He does have an extensive past medical history, which includes coronary artery disease and did undergo a catheterization and stent placement October of this year. Since that time, he has been at an extended care facility. Since the procedure, he has had several hospital evaluations. He has had exertional shortness of breath as well as lower extremity edema. He also was admitted for influenza 12/15/2018. He has had issues with rectal bleeding with the last episode 12/20/2018. He did have another episode and laboratory work did show that he was anemic. He is on Eliquis and aspirin due to his recent stent placement. PAST MEDICAL HISTORY: Coronary artery disease, renal failure and on dialysis, benign prostatic hypertrophy, gastroesophageal reflux disease, history of diverticulosis, rheumatoid arthritis, diabetes, macular degeneration, hypertension. PAST SURGERIES: Orthopedic procedures, multiple cardiac catheterizations and stent placement. ALLERGIES: No known drug allergies. MEDICATIONS: Albuterol nebulizer t.i.d. p.r.n. Apixaban 2.5 mg b.i.d., aspirin 81 mg daily, atorvastatin 10 mg daily, bumetanide 2 mg b.i.d., glipizide 5 mg b.i.d., detemir insulin 20 units b.i.d., metoprolol 50 mg daily, Zofran 4 mg p.r.n., Protonix 40 mg daily, MiraLax daily, prednisone 5 mg b.i.d., Carafate 1 gram q.i.d., tamsulosin 0.4 mg daily, ticagrelor 90 mg b.i.d. SOCIAL HISTORY: Previous smoker, quit in 1977. Mild alcohol. FAMILY HISTORY: Father, pancreatic cancer. Mother and brother, diabetes. VITAL SIGNS: Temperature 99.6, pulse 117, respirations 32, blood pressure 154/87, pulse ox 97% on room air. REVIEW OF SYSTEMS: Well-nourished male, currently in no acute distress. He is not experiencing any shortness of breath or difficulty breathing. No chest pain, palpitations, diaphoresis. No nausea, vomiting, with a history of constipation. He has had several episodes of rectal bleeding. He has also had pain in the left lower abdominal quadrant. No fever or chills. No recent inadvertent weight loss. All other review of systems negative. PHYSICAL EXAMINATION: CHEST: Scattered rales and rhonchi bilaterally. HEART: Regular, no murmurs. EXTREMITIES: +1/3 bilateral lower extremity edema. Negative Homans sign. HEENT: No scleral icterus. No cervical lymphadenopathy. ABDOMEN: Soft. There is mild discomfort upon deep palpation of the left lower abdominal quadrant. There is no rebounding or guarding. SKIN: Warm, dry. LABORATORY DATA: WBC 17.6, hemoglobin 7.8, hematocrit 24, platelets 278, BUN 61, creatinine 3.09. ASSESSMENT AND PLAN: An 88-year-old male with anemia secondary to rectal bleeding. The etiology of the rectal bleeding is most likely diverticular bleeding versus hemorrhoids. He has had a colonoscopy done in the past; however, he cannot remember when that was. He also does have a component of diverticulitis as well, which has caused the pain as well as elevation in leukocytes. We will proceed with conservative management at this time. We will transfuse him as necessary for he will need to continue to be on anticoagulation for his recent coronary artery stent placement. We will also continue with antibiotics to treat the diverticulitis including bowel rest. Eventually, once the diverticulosis resolved in approximately 6 to 8 weeks, we will recommend a followup colonoscopy to evaluate the colon and rectum and to rule out any neoplastic process. Job ID: [id number] DocumentID: [id number] Dictated Date: 12/27/2018 09:55:30 Third Grade Teacher Date: 12/27/2018 10:35:08 Dictated By: MAGDA CRAIG MD
--- NOTE | 2018-12-27 10:50 | Progress Note (SOAP) ---
Subjective Date Seen by a Provider: Dec 27, 2018 Time Seen by a Provider: 09:45 Subjective/Events-last exam Patient seen with Dr. Shearer. Patient reports doing ok. Does state that he is having pain from his RA as well as LLQ pain. Denied any recent stools with blood. No N/V. Tolerating liquids. Focused Exam Lactate Level 12/26/18 15:35: Lactic Acid Level 1.82 Objective Exam Vital Signs Date Time Temp Pulse Resp B/P (MAP) Pulse Ox O2 Delivery O2 Flow Rate FiO2 12/27/18 08:39 98.0 109 20 134/65 96 Room Air 12/27/18 08:30 98.0 12/27/18 08:14 98.0 108 20 143/77 96 Room Air 12/27/18 08:00 96 Room Air 12/27/18 08:00 98.0 108 20 143/77 (99) 95 Room Air 12/27/18 07:00 109 12/27/18 03:14 99.0 110 18 136/78 (97) 95 Room Air 12/27/18 01:04 98.5 107 18 133/82 95 Room Air 12/27/18 01:00 108 12/26/18 23:12 98.6 106 18 148/78 96 Room Air 12/26/18 23:08 98.6 108 18 148/78 (101) 96 Room Air 12/26/18 22:56 98.5 105 18 128/68 96 Room Air 12/26/18 22:51 98.5 107 18 128/68 96 Room Air 12/26/18 20:00 98.4 111 18 149/70 94 Room Air 12/26/18 20:00 94 Room Air 12/26/18 19:50 99.6 103 26 116/76 (89) 97 Room Air 12/26/18 15:23 99.6 117 32 154/87 (109) 97 Room Air I & O 12/27/18 07:00 Intake Total 2410 ml Output Total 700 ml Balance 1710 ml Capillary Refill : Less Than 3 Seconds General Appearance: No Apparent Distress, WD/WN Neck: Full Range of Motion, Normal Inspection, Non Tender, Supple Respiratory: Normal Breath Sounds, No Accessory Muscle Use, No Respiratory Distress Cardiovascular: Regular Rate, Rhythm, No Edema Gastrointestinal: normal bowel sounds, soft, tenderness (LLQ) Extremity: Normal Inspection, Normal Range of Motion Neurologic/Psychiatric: Alert, Oriented x3 Skin: Normal Color, Warm/Dry Results Lab Laboratory Tests 12/26/18 15:35: White Blood Count 17.6H, Red Blood Count 2.64L, Hemoglobin 7.8#L, Hematocrit 24L , Mean Corpuscular Volume 92, Mean Corpuscular Hemoglobin 30, Mean Corpuscular Hemoglobin Concent 32, Red Cell Distribution Width 14.8H, Platelet Count 279, Mean Platelet Volume 9.5, Neutrophils (%) (Auto) 86H, Lymphocytes (%) (Auto) 8L , Monocytes (%) (Auto) 6, Eosinophils (%) (Auto) 0, Basophils (%) (Auto) 0, Neutrophils # (Auto) 15.2H, Lymphocytes # (Auto) 1.4, Monocytes # (Auto) 1.0, Eosinophils # (Auto) 0.1, Basophils # (Auto) 0.0, Neutrophils % (Manual) 87, Lymphocytes % (Manual) 8, Monocytes % (Manual) 1, Eosinophils % (Manual) 0, Basophils % (Manual) 0, Metamyelocytes % 1, Band Neutrophils 3, Polychromasia SLIGHT, Anisocytosis SLIGHT, Sodium Level 136, Potassium Level 3.1L, Chloride Level 99, Carbon Dioxide Level 21, Anion Gap 16H, Blood Urea Nitrogen 61H, Creatinine 3.09H, Estimat Glomerular Filtration Rate 19, BUN/Creatinine Ratio 20 , Glucose Level 279H, Lactic Acid Level 1.82, Calcium Level 9.3, Corrected Calcium 9.5, Magnesium Level 1.8, Total Bilirubin 0.8, Aspartate Amino Transf ( AST/SGOT) 15, Alanine Aminotransferase (ALT/SGPT) 15, Alkaline Phosphatase 79, B -Type Natriuretic Peptide 85.4, Total Protein 6.7, Albumin 3.7, Lipase 34 12/26/18 15:39: Prothrombin Time 12.9, INR Comment 0.9, Activated Partial Thromboplast Time 32, C-Reactive Protein High Sensitivity 9.12H 12/26/18 17:23: Urine Color YELLOW, Urine Clarity CLEAR, Urine pH 5, Urine Specific [place] 1.010L, Urine Protein 1+H, Urine Glucose (UA) 1+H, Urine Ketones NEGATIVE, Urine Nitrite NEGATIVE, Urine Bilirubin NEGATIVE, Urine Urobilinogen NORMAL, Urine Leukocyte Esterase 1+H, Urine RBC (Auto) NEGATIVE, Urine RBC NONE, Urine WBC 2-5, Urine Crystals NONE, Urine Bacteria TRACE, Urine Casts PRESENT, Urine Hyaline Casts 2-5H, Urine Mucus SMALLH, Urine Culture Indicated NO 12/27/18 06:27: White Blood Count 16.6H, Red Blood Count 2.16L, Hemoglobin 6.4*L, Hematocrit 20* L, Mean Corpuscular Volume 94, Mean Corpuscular Hemoglobin 30, Mean Corpuscular Hemoglobin Concent 31L, Red Cell Distribution Width 14.6H, Platelet Count 286, Mean Platelet Volume 9.3, Neutrophils (%) (Auto) 82H, Lymphocytes (%) (Auto) 10L , Monocytes (%) (Auto) 7, Eosinophils (%) (Auto) 1, Basophils (%) (Auto) 0, Neutrophils # (Auto) 13.6H, Lymphocytes # (Auto) 1.7, Monocytes # (Auto) 1.2H, Eosinophils # (Auto) 0.1, Basophils # (Auto) 0.0, Sodium Level 139, Potassium Level 3.2L, Chloride Level 107, Carbon Dioxide Level 21, Anion Gap 11, Blood Urea Nitrogen 47H, Creatinine 2.83H, Estimat Glomerular Filtration Rate 21, BUN/ Creatinine Ratio 17, Glucose Level 103, Calcium Level 8.5, Corrected Calcium 9.1 , Total Bilirubin 1.3H, Aspartate Amino Transf (AST/SGOT) 15, Alanine Aminotransferase (ALT/SGPT) 12, Alkaline Phosphatase 57, Total Protein 5.8L, Albumin 3.2 Assessment/Plan Assessment/Plan Assess & Plan/Chief Complaint An 88 year old male with lower GI bleed (most likely hemorrhoidal vs diverticular bleed), acute sigmoid diverticulitis. VSS. HgB 6.4, patient being transfused. IV fluids, abx, pain and nausea meds PRN. Will need colonoscopy as an outpatient. Continue with medical management. Clinical Quality Measures DVT/VTE Risk/Contraindication: Risk Factor Score Per Nursin RFS Level Per Nursing on Admit: 4+=Very High AURELIA CHAVEZ PROGRAMMING SPECIALIST Dec 27, 2018 10:50
--- NOTE | 2018-12-27 11:01 | Consultation-Cardiology ---
HPI-Cardiology Cardiology Consultation: Date of Consultation 12/27/18 Time Seen by a Provider: 10:45 Date of Admission Attending Physician Janny Swenson MD Admitting Physician Krzysztof Garcia MD Consulting Physician ARYAN ONEAL MD, MA, FACP, FACC, FSCAI, CCDS Physician requesting consult: Dr Swenson HPI: Chief Complaint: Reason for consultation: Active GI bleed, CAD, management of antiplatelet therapy HPI 88 yo man with multiple comorbidities hospitalized with gen malaise and tiredness and shortness of breath and joint and back pains and recent rectal bleeding. Found to be markedly anemic. Remains anemic despite blood transfusion during this hospitalization. Denies cp. Denies syncope Review of Systems-Cardiology Review of Systems Constitutional: As described under HPI Eyes: No vision change Ears/Nose/Throat: No ear discharge, No nasal drainage, No recent hearing loss Respiratory: As described under HPI Cardiovascular: As described under HPI Gastrointestinal: As described under HPI Genitourinary: No dysuria, No hematuria, No urine frequency changes Musculoskeletal: As describe under HPI Skin: No rash; other (bruisining of the arms from iv lines and blood draws, bruising of the leg since card cath of Oct 2018); No ulcerations Psychiatric/Neurological: No focal weakness, No syncope Hematologic: No bleeding abnormalities UHG-[id number]-Eyacdv Hx Patient Social History Alcohol Use: Occasionally Uses Recreational Drug Use: No Smoking Status: Former Smoker Type Used: Cigars, Cigarettes 2nd Hand Smoke Exposure: No Recent Foreign Travel: No Recent Infectious Disease Expo: No Hospitalization with Isolation: Denies Physical Abuse Screen: No Sexual Abuse: No Immunizations Up To Date Tetanus Booster (TDap): Unknown Date of Pneumonia Vaccine: Jan 13, 2014 Date of Influenza Vaccine: Jul 06, 2018 Past Medical History PMH As described under Assessment. Family Medical History Family History: Diabetes mellitus 19 MOTHER G8 BROTHER FH: pancreatic cancer 19 FATHER Allergies and Home Medications Allergies Coded Allergies: No Known Drug Allergies (Verified , 11/18/18) Home Medications Acetaminophen 650 Mg Tablet.er, 1,300 MG PO DAILY PRN for PAIN-MILD, (Reported) Albuterol Sulfate 2.5 Mg/3 Ml Vial.neb, 2.5 MG NEB TID PRN for SHORTNESS OF BREATH, (Reported) Apixaban 2.5 Mg Tablet, 2.5 MG PO BID, (Reported) Aspirin 81 Mg Tablet., 81 MG PO DAILY, (Reported) TAKE THROUGH THE END OF NOVEMBER Atorvastatin Calcium 10 Mg Tablet, 10 MG PO HS, (Reported) Bumetanide 2 Mg Tablet, 2 MG PO BID, (Reported) Calcitriol 0.25 Mcg Capsule, 0.25 MCG PO MoWeFr, (Reported) Glipizide 5 Mg Tablet, 5 MG PO BID, (Reported) Insulin Detemir 100 Unit/1 Ml Insuln.pen, 20 UNIT SQ BID, (Reported) Metoprolol Succinate 50 Mg Tab.er.24h, 50 MG PO DAILY, (Reported) Ondansetron 4 Mg Tab.rapdis, 4 MG PO Q6H PRN for NAUSEA/VOMITING-1ST LINE Prescribed by: JACKELINE CEE on 12/16/18 1156 Pantoprazole Sodium 40 Mg Tablet.dr, 40 MG PO DAILY, (Reported) Polyethylene Glycol 3350 17 Gm Powd.pack, 17 GM PO DAILY PRN for CONSTIPATION- 2ND LINE, (Reported) Prednisone 5 Mg Tablet, 5 MG PO BID, (Reported) Sucralfate 1 Gm Tablet, 1 GM PO ACHS, (Reported) Tamsulosin HCl 0.4 Mg Cap, 0.4 MG PO DAILY, (Reported) Ticagrelor 90 Mg Tablet, 90 MG PO BID, (Reported) Patient Home Medication List Home Medication List Reviewed: Yes Physical Exam-Cardiology Physical Exam Vital Signs/I&O 12/26/18 12/26/18 12/27/18 12/27/18 23:08 23:12 01:00 01:04 Temp 98.6 98.6 98.5 Pulse 108 106 108 107 Resp 18 18 18 B/P (MAP) 148/78 (101) 148/78 133/82 Pulse Ox 96 96 95 O2 Delivery Room Air Room Air Room Air 12/27/18 12/27/18 12/27/18 12/27/18 03:14 07:00 08:00 08:00 Temp 99.0 98.0 Pulse 110 109 108 Resp 18 20 B/P (MAP) 136/78 (97) 143/77 (99) Pulse Ox 95 95 96 O2 Delivery Room Air Room Air Room Air 12/27/18 12/27/18 12/27/18 08:14 08:30 08:39 Temp 98.0 98.0 98.0 Pulse 108 109 Resp 20 20 B/P (MAP) 143/77 134/65 Pulse Ox 96 96 O2 Delivery Room Air Room Air 12/27/18 00:00 Intake Total 560 ml Balance 560 ml Capillary Refill : Less Than 3 Seconds Constitutional: AAO x 3, well-developed, well-nourished HEENT: EOMI, hearing is well preserved; No xanthelasmas are seen Neck: carotid pulses are 2 + bilaterally, with good upstrokes Respiratory: No accessory muscle use; other (fair to good bilat air entry, somewhat prolonged exp phase, bs somewhat diminished at the bases) Cardiovascular: regular rate-rhythm, S1 and S2, systolic murmur (soft KEELEY at card base) Gastrointestinal: No tender; soft; No guarding, No rebound; audible bowel sounds Extremities: other (bruising at sites of iv sticks; bruising along the medial aspect of R thigh and R anterior leg); No clubbing, No cyanosis Neurologic/Psychiatric: oriented x 3, grossly intact, power is 5/5 both on sides Skin: No rash on exposed areas, No ulcerations on exposed areas; other (for burising description, see Extremeties exam) Data Review Labs Laboratory Tests 12/26/18 15:35: White Blood Count 17.6H, Red Blood Count 2.64L, Hemoglobin 7.8#L, Hematocrit 24L , Mean Corpuscular Volume 92, Mean Corpuscular Hemoglobin 30, Mean Corpuscular Hemoglobin Concent 32, Red Cell Distribution Width 14.8H, Platelet Count 279, Mean Platelet Volume 9.5, Neutrophils (%) (Auto) 86H, Lymphocytes (%) (Auto) 8L , Monocytes (%) (Auto) 6, Eosinophils (%) (Auto) 0, Basophils (%) (Auto) 0, Neutrophils # (Auto) 15.2H, Lymphocytes # (Auto) 1.4, Monocytes # (Auto) 1.0, Eosinophils # (Auto) 0.1, Basophils # (Auto) 0.0, Neutrophils % (Manual) 87, Lymphocytes % (Manual) 8, Monocytes % (Manual) 1, Eosinophils % (Manual) 0, Basophils % (Manual) 0, Metamyelocytes % 1, Band Neutrophils 3, Polychromasia SLIGHT, Anisocytosis SLIGHT, Sodium Level 136, Potassium Level 3.1L, Chloride Level 99, Carbon Dioxide Level 21, Anion Gap 16H, Blood Urea Nitrogen 61H, Creatinine 3.09H, Estimat Glomerular Filtration Rate 19, BUN/Creatinine Ratio 20 , Glucose Level 279H, Lactic Acid Level 1.82, Calcium Level 9.3, Corrected Calcium 9.5, Magnesium Level 1.8, Total Bilirubin 0.8, Aspartate Amino Transf ( AST/SGOT) 15, Alanine Aminotransferase (ALT/SGPT) 15, Alkaline Phosphatase 79, B -Type Natriuretic Peptide 85.4, Total Protein 6.7, Albumin 3.7, Lipase 34 12/26/18 15:39: Prothrombin Time 12.9, INR Comment 0.9, Activated Partial Thromboplast Time 32, C-Reactive Protein High Sensitivity 9.12H 12/26/18 17:23: Urine Color YELLOW, Urine Clarity CLEAR, Urine pH 5, Urine Specific [place] 1.010L, Urine Protein 1+H, Urine Glucose (UA) 1+H, Urine Ketones NEGATIVE, Urine Nitrite NEGATIVE, Urine Bilirubin NEGATIVE, Urine Urobilinogen NORMAL, Urine Leukocyte Esterase 1+H, Urine RBC (Auto) NEGATIVE, Urine RBC NONE, Urine WBC 2-5, Urine Crystals NONE, Urine Bacteria TRACE, Urine Casts PRESENT, Urine Hyaline Casts 2-5H, Urine Mucus SMALLH, Urine Culture Indicated NO 12/27/18 06:27: White Blood Count 16.6H, Red Blood Count 2.16L, Hemoglobin 6.4*L, Hematocrit 20* L, Mean Corpuscular Volume 94, Mean Corpuscular Hemoglobin 30, Mean Corpuscular Hemoglobin Concent 31L, Red Cell Distribution Width 14.6H, Platelet Count 286, Mean Platelet Volume 9.3, Neutrophils (%) (Auto) 82H, Lymphocytes (%) (Auto) 10L , Monocytes (%) (Auto) 7, Eosinophils (%) (Auto) 1, Basophils (%) (Auto) 0, Neutrophils # (Auto) 13.6H, Lymphocytes # (Auto) 1.7, Monocytes # (Auto) 1.2H, Eosinophils # (Auto) 0.1, Basophils # (Auto) 0.0, Sodium Level 139, Potassium Level 3.2L, Chloride Level 107, Carbon Dioxide Level 21, Anion Gap 11, Blood Urea Nitrogen 47H, Creatinine 2.83H, Estimat Glomerular Filtration Rate 21, BUN/ Creatinine Ratio 17, Glucose Level 103, Calcium Level 8.5, Corrected Calcium 9.1 , Total Bilirubin 1.3H, Aspartate Amino Transf (AST/SGOT) 15, Alanine Aminotransferase (ALT/SGPT) 12, Alkaline Phosphatase 57, Total Protein 5.8L, Albumin 3.2 Laboratory Tests 12/26/18 15:35 12/27/18 06:27 A/P-Cardiology Assessment/Admission Diagnosis Active GI bleed with continuing drop in hemoglobin despite blood transfusions S/p VALENTIN of prox LAD by Dr Esequiel Clark in Oct 2018 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 Previously on dialysis, Dr Janet Clark, that was d/c'd in February 2018 PAF H/o hypertension Rheumatoid arthritis Hypokalemia Discussion and Recomendations * Complex management * Continues with GI bleed that has req'd multiple transfusion and he still markedly anemic (worse compared to time of admission) * He had previously been on triple therapy with Eliquis, Brilinta, and aspirin. Eliquis and ASA had been d/c'd after previous bleeds in the recent past. Was on Brilinta at time of admission. We are switching to clopidogrel in effort to reduce risk of bleeding. Need to continue with at least one antiplatelet agents , given recent VALENTIN stenting of the LAD * Replenish K * Monitor labs closely * I had a long and detailed discussion with him regarding his CV issues and our treatment plan Clinical Quality Measures DVT/VTE Risk/Contraindication: Risk Factor Score Per Nursin RFS Level Per Nursing on Admit: 4+=Very High ARYAN ONEAL MD FACP FAC CCDS Dec 27, 2018 11:01
[2018-12-27] MEDS ORDERED: KCL 20 MEQ TAB (K-DUR) PO NR (11:15)
[2018-12-27] MEDS ORDERED: CLOPIDOGREL 75 MG (PLAVIX) TABLET PO NR (11:22)
[2018-12-27] MEDS ORDERED: fentaNYL INJECTION 100 MCG/2 ML AMP IVP PRN (11:45)
[2018-12-27] MEDS ORDERED: predniSONE 5 MG TAB PO NR (12:30)
--- NOTE | 2018-12-27 12:30 | NUR ---
DUE TO DX OF DIVERT. AND GI BLEED AND ANEMIA -- THIS RN QUESTIONED THE PLAVIX 75 MG TAB ORDER WITH MIRNA REED -- IT HAD BEEN CANCELED AND THEN DR ONEAL REORDERED IT -- DR REED VOICED TO GO AHEAD AND GIVE ORDERED -- AND IF BLEED OCCURRED TO CALL HER
[2018-12-27] MEDS: HYDROcodone/APAP 7.5 MG/325 MG (LORTAB, LORCET PLUS) TABLET PO PRN ×2 (12:40→21:14)
[2018-12-27] MEDS ORDERED: KCL 20 MEQ TAB (K-DUR) PO ONE (17:30)
--- NOTE | 2018-12-27 17:30 | History & Physicial (CHS) ---
HPI History of Present Illness: 88 yo M with multiple recent admission that presented with abdominal pain and bright red blood per rectum and found to have low Hgb in ER. Patient states that he has been having dark stools and abdominal pain for the last week. States that he has not missed any medications recently. States that he has been having some shortness of breath in the last 48hrs. Not on oxygen at home. Source: patient, family, RN/MD Exam Limitations: no limitations Date seen by provider: Dec 27, 2018 Time Seen by Provider: 10:30 Attending Physician Janny Swenson MD PCP Krzysztof Garcia MD Consult Date of Admission Dec 26, 2018 at 18:26 Home Medications Home Medications Reviewed patient Home Medication Reconciliation performed by pharmacy medication reconciliations x ray electronics wiring technician and/or nursing. Patients Allergies have been reviewed. Allergies Coded Allergies: No Known Drug Allergies (Verified , 11/18/18) [id number] Hx Patient Social History Alcohol Use: Occasionally Uses Recreational Drug Use: No Smoking Status: Former Smoker Type Used: Cigars, Cigarettes 2nd Hand Smoke Exposure: No Recent Foreign Travel: No Contact w/other who traveled: No Recent Hopitalizations: No Recent Infectious Disease Expo: No Physical Abuse Screen: No Sexual Abuse: No Immunizations Up To Date Tetanus Booster (TDap): Unknown Date of Pneumonia Vaccine: Jan 13, 2014 Date of Influenza Vaccine: Jul 06, 2018 Past Medical History CAD with stent placement 2018 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 Family Medical History Significant Family History: Diabetes Family History: Diabetes mellitus 19 MOTHER G8 BROTHER FH: pancreatic cancer 19 FATHER Review of Systems (CHC) Constitutional: no symptoms reported; No fever, No malaise, No weakness EENTM: no symptoms reported Respiratory: dyspnea on exertion, short of breath Cardiovascular: no symptoms reported; No chest pain, No edema, No palpitations Gastrointestinal: abdominal pain; No constipation, No diarrhea, No loss of appetite, No nausea, No vomiting Genitourinary: no symptoms reported; No dysuria, No frequency, No hematuria Musculoskeletal: no symptoms reported; No back pain, No joint pain Skin: no symptoms reported Psychiatric/Neurological: No Symptoms Reported Reviewed Test Results Reviewed Test Results Lab Laboratory Tests Test 12/27/18 06:27 12/27/18 11:40 12/27/18 16:18 Range/Units White Blood Count 16.6 H 4.3-11.0 10^3/uL Red Blood Count 2.16 L 4.35-5.85 10^6/uL Hemoglobin 6.4 *L 13.3-17.7 G/DL Hematocrit 20 *L 40-54 % Mean Corpuscular Volume 94 80-99 FL Mean Corpuscular Hemoglobin 30 25-34 PG Mean Corpuscular Hemoglobin Concent 31 L 32-36 G/DL Red Cell Distribution Width 14.6 H 10.0-14.5 % Platelet Count 286 130-400 10^3/uL Mean Platelet Volume 9.3 7.4-10.4 FL Neutrophils (%) (Auto) 82 H 42-75 % Lymphocytes (%) (Auto) 10 L 12-44 % Monocytes (%) (Auto) 7 0-12 % Eosinophils (%) (Auto) 1 0-10 % Basophils (%) (Auto) 0 0-10 % Neutrophils # (Auto) 13.6 H 1.8-7.8 X 10^3 Lymphocytes # (Auto) 1.7 1.0-4.0 X 10^3 Monocytes # (Auto) 1.2 H 0.0-1.0 X 10^3 Eosinophils # (Auto) 0.1 0.0-0.3 10^3/uL Basophils # (Auto) 0.0 0.0-0.1 10^3/uL Sodium Level 139 135-145 MMOL/L Potassium Level 3.2 L 3.6-5.0 MMOL/L Chloride Level 107 98-107 MMOL/L Carbon Dioxide Level 21 21-32 MMOL/L Anion Gap 11 5-14 MMOL/L Blood Urea Nitrogen 47 H 7-18 MG/DL Creatinine 2.83 H 0.60-1.30 MG/DL Estimat Glomerular Filtration Rate 21 BUN/Creatinine Ratio 17 Glucose Level 103 70-105 MG/DL Calcium Level 8.5 8.5-10.1 MG/DL Corrected Calcium 9.1 8.5-10.1 MG/DL Total Bilirubin 1.3 H 0.1-1.0 MG/DL Aspartate Amino Transf (AST/SGOT) 15 5-34 U/L Alanine Aminotransferase (ALT/SGPT) 12 0-55 U/L Alkaline Phosphatase 57 40-136 U/L Total Protein 5.8 L 6.4-8.2 GM/DL Albumin 3.2 3.2-4.5 GM/DL Glucometer 120 H 128 H 70-110 MG/DL Physical Exam-(CHC) Physical Exam Vital Signs VS - Last 72 Hours, by Label 12/26/18 12/26/18 12/26/18 12/26/18 15:23 19:50 20:00 20:00 Temp 99.6 99.6 98.4 Pulse 117 103 111 Resp 32 26 18 B/P (MAP) 154/87 (109) 116/76 (89) 149/70 Pulse Ox 97 97 94 94 O2 Delivery Room Air Room Air Room Air Room Air 12/26/18 12/26/18 12/26/18 12/26/18 22:51 22:56 23:08 23:12 Temp 98.5 98.5 98.6 98.6 Pulse 107 105 108 106 Resp 18 18 18 18 B/P (MAP) 128/68 128/68 148/78 (101) 148/78 Pulse Ox 96 96 96 96 O2 Delivery Room Air Room Air Room Air Room Air 12/27/18 12/27/18 12/27/18 12/27/18 01:00 01:04 03:14 07:00 Temp 98.5 99.0 Pulse 108 107 110 109 Resp 18 18 B/P (MAP) 133/82 136/78 (97) Pulse Ox 95 95 O2 Delivery Room Air Room Air 12/27/18 12/27/18 12/27/18 12/27/18 08:00 08:00 08:14 08:30 Temp 98.0 98.0 98.0 Pulse 108 108 Resp 20 20 B/P (MAP) 143/77 (99) 143/77 Pulse Ox 95 96 96 O2 Delivery Room Air Room Air Room Air 12/27/18 12/27/18 12/27/18 12/27/18 08:39 11:01 12:00 13:00 Temp 98.0 98.0 98.7 Pulse 109 112 112 112 Resp 20 20 18 B/P (MAP) 134/65 146/75 139/71 (93) Pulse Ox 96 96 93 O2 Delivery Room Air Room Air Room Air 12/27/18 12/27/18 13:10 16:00 Temp 98.0 98.3 Pulse 97 Resp 20 B/P (MAP) 129/75 (93) Pulse Ox 97 O2 Delivery Room Air Capillary Refill : Less Than 3 Seconds General Appearance: WD/WN, no apparent distress HEENT: PERRL/EOMI Neck: non-tender, full range of motion, supple Respiratory: chest non-tender, lungs clear, normal breath sounds Cardiovascular: normal peripheral pulses, regular rate, rhythm, no edema, no murmur Gastrointestinal: normal bowel sounds, soft, tenderness (LLQ with some guarding ) Back: no CVA tenderness, no vertebral tenderness Extremities: normal range of motion, non-tender, no pedal edema, no calf tenderness, normal capillary refill Neurologic/Psychiatric: transplant rn II-XII nml as tested, no motor/sensory deficits, alert, normal mood/affect, oriented x 3 Skin: normal color, warm/dry Lymphatic: no adenopathy Assessment/Plan Assessment/Plan Admission Status: Inpatient Order (span 2 midnights) Reason for Inpatient Admission: Requiring frequent vitals with multiple blood transfusions (1) Sepsis Status: Acute Assessment & Plan: - Possible infection vs acute blood loss, Continue IV antibiotics and IVFs Qualifiers: Qualified Codes: A41.9 - Sepsis, unspecified organism (2) Lower GI bleed Status: Acute Assessment & Plan: - Consult surgery, will need outpatient Colonoscopy, Recent normal EGD, s/p 2 units pRBCs (3) Severe anemia Status: Acute (4) Acute renal failure superimposed on stage 3 chronic kidney disease Status: Acute Assessment & Plan: - IVFs and pRBCs, Will continue to monitor Qualifiers: Qualified Codes: N17.9 - Acute kidney failure, unspecified; N18.3 - Chronic kidney disease, stage 3 (moderate) (5) Diverticulitis Status: Acute Assessment & Plan: - Flagyl and Zosyn D2 (6) CAD (coronary artery disease) Status: Chronic Assessment & Plan: - Cardiology consult for anticoagulation Qualifiers: Qualified Codes: I25.10 - Atherosclerotic heart disease of [place] coronary artery without angina pectoris (7) Diabetes mellitus Status: Chronic Assessment & Plan: - 1/2 Levemir dose given while in hospital Qualifiers: (8) Hypokalemia Status: Acute (9) DVT prophylaxis Status: Acute Assessment & Plan: DVT Clinical Quality Measures DVT/VTE Risk/Contraindication: Risk Factor Score Per Nursin RFS Level Per Nursing on Admit: 4+=Very High Copy Copies To 1: JANNY JOSHI MD Dec 27, 2018 17:30
[2018-12-27] MEDS ORDERED: predniSONE 5 MG TAB PO SCH (21:00)
--- NOTE | 2018-12-27 21:06 | NUR ---
This RN contacted Dr. Swenson r/t 2 orders for Prednisone 5 mg PO BID. Orders clarified to be one dose of Prednisone 5 mg PO BID.
[2018-12-27] MEDS: predniSONE 5 MG TAB PO SCH (21:14)
[2018-12-27] MEDS: ATORVASTATIN 10 MG (LIPITOR) TABLET PO SCH (21:14)
[2018-12-28 00:53] VITALS: BP 116/59
[2018-12-28 04:00] VITALS: BP 125/81
[2018-12-28] MEDS: metroNIDAZOLE 500 MG/100 ML IVPB (PRE-MIX) IV SCH ×3 (04:09→20:09)
[2018-12-28] MEDS: PIPERACILLIN/TAZO 4.5 GM/NS 100 ML IV SCH ×6 (06:00→21:46)
[2018-12-28 06:40] LABS: BASOPHILS % (AUTO) 0 % (0-10); EOSINOPHILS # (AUTO) 0.1 10^3/uL (0.0-0.3); EOSINOPHILS % (AUTO) 0 % (0-10); HEMATOCRIT 28 % (40-54); HEMOGLOBIN 8.9 G/DL (13.3-17.7); LYMPHOCYTES % (AUTO) 8 % (12-44); MEAN CORPUSCULAR HEMOGLOBIN 30 PG (25-34); MEAN CORPUSCULAR HGB CONC 32 G/DL (32-36); MEAN CORPUSCULAR VOLUME 94 FL (80-99); MEAN PLATELET VOLUME 9.3 FL (7.4-10.4); MONOCYTES # (AUTO) 0.9 X 10^3 (0.0-1.0); MONOCYTES % (AUTO) 6 % (0-12); NEUTROPHILS # (AUTO) 11.7 X 10^3 (1.8-7.8); NEUTROPHILS % (AUTO) 86 % (42-75); PLATELET COUNT 241 10^3/uL (130-400); RED CELL DISTRIBUTION WIDTH 15.2 % (10.0-14.5); WHITE BLOOD COUNT 13.6 10^3/uL (4.3-11.0)
[2018-12-28 07:04] LABS: BILIRUBIN,TOTAL 0.9 MG/DL (0.1-1.0); CALCIUM 8.5 MG/DL (8.5-10.1); CREATININE SERUM 2.57 MG/DL (0.60-1.30); POTASSIUM 4.4 MMOL/L (3.6-5.0); TOTAL PROTEIN 5.4 GM/DL (6.4-8.2)
[2018-12-28 08:00] VITALS: BP 137/68
[2018-12-28] MEDS: PANTOPRAZOLE 40 MG (PROTONIX) TAB PO SCH (08:56)
[2018-12-28] MEDS: TAMSULOSIN 0.4 MG (FLOMAX) CAP PO SCH (08:56)
[2018-12-28] MEDS: CLOPIDOGREL 75 MG (PLAVIX) TABLET PO SCH (08:56)
[2018-12-28] MEDS: predniSONE 5 MG TAB PO SCH ×2 (09:02→21:44)
[2018-12-28] MEDS ORDERED: METO-387 PO (10:12)
[2018-12-28] MEDS ORDERED: CLOP75TA28 PO (10:12)
[2018-12-28] MEDS ORDERED: BUME1TAB4 PO (10:12)
--- NOTE | 2018-12-28 10:14 | Discharge Inst-Skilled Nursing ---
Discharge Inst-Skilled NF Patient Instructions Patient Problems: Gi bleed Renal failure CAD Esophagitis Goal: Return to independent ADL's Consult/Follow Up/Orders Follow Up Appt.: [facility] this week NH rounds Skilled NF Admit to: Via [facility] Certification ([facility]) I certify that SNF services are required to be given on an inpatient basis because of the above named patient's need for group home care on a continuing basis for the conditions(s) for which he/she was receiving inpatient hospital services prior to his/her transfer to the SNF. [facility] Facility Order: Nursing Services, Industrial Gas Fitter Helper-Evaluate & Treat, Physical Therapy-Evaluate & Treat, Speech Language-Evaluate & Treat Oxygen Delivery Method: Room Air Discharge Diet: ADA Diet, Cardiac Diet Daily Activity as Tolerated: Yes New & Resume Previous Orders Trixie Wilde Dec 28, 2018 10:12 Pneu Vac Indicated: Yes TRIXIE WILDE DO Dec 28, 2018 10:14
--- NOTE | 2018-12-28 10:14 | Discharge Summary-Hospitalist ---
Diagnosis/Chief Complaint Date of Admission Dec 26, 2018 at 18:26 Date of Discharge Discharge Date: Dec 28, 2018 Discharge Diagnosis (1) Sepsis Status: Acute Assessment & Plan: - Possible infection vs acute blood loss, Continue IV antibiotics and IVFs Qualifiers: Qualified Codes: A41.9 - Sepsis, unspecified organism (2) Lower GI bleed Status: Acute Assessment & Plan: - Consult surgery, will need outpatient Colonoscopy, Recent normal EGD, s/p 2 units pRBCs (3) Severe anemia Status: Acute (4) Acute renal failure superimposed on stage 3 chronic kidney disease Status: Acute Assessment & Plan: - IVFs and pRBCs, Will continue to monitor Qualifiers: Qualified Codes: N17.9 - Acute kidney failure, unspecified; N18.3 - Chronic kidney disease, stage 3 (moderate) (5) Diverticulitis Status: Acute Assessment & Plan: - Flagyl and Zosyn D2 (6) CAD (coronary artery disease) Status: Chronic Assessment & Plan: - Cardiology consult for anticoagulation Qualifiers: Qualified Codes: I25.10 - Atherosclerotic heart disease of [place] coronary artery without angina pectoris (7) Diabetes mellitus Status: Chronic Assessment & Plan: - 1/2 Levemir dose given while in hospital Qualifiers: (8) Hypokalemia Status: Acute (9) DVT prophylaxis Status: Acute Assessment & Plan: DVT (1) Lower GI bleed Status: Acute (2) Hyponatremia Status: Acute (3) Leukocytosis Status: Acute (4) UTI (urinary tract infection) Status: Acute (5) Esophageal obstruction Status: Resolved (6) Chest pain Status: Resolved (7) COPD with acute exacerbation Status: Acute (8) Hypertension Status: Chronic (9) Diverticulitis Status: Acute (10) Sepsis Status: Acute (11) Severe anemia Status: Acute (12) Hypokalemia Status: Acute (13) Rectal bleeding Status: Acute (14) Chronic renal failure Status: Acute (15) Anemia (16) Diabetes mellitus Status: Chronic (17) CAD (coronary artery disease) Status: Chronic (18) Diverticulitis Status: Acute (19) Sepsis Status: Acute (20) DVT prophylaxis Status: Acute (21) Acute renal failure superimposed on stage 3 chronic kidney disease Status: Acute Discharge Summary Discharge Physical Exam Allergies: Coded Allergies: No Known Drug Allergies (Verified , 11/18/18) Vitals & I&Os Vital Signs Date Time Temp Pulse Resp B/P (MAP) Pulse Ox O2 Delivery O2 Flow Rate FiO2 12/28/18 16:00 97.3 86 16 135/63 (87) 96 Room Air General Appearance: No Apparent Distress, WD/WN, Chronically ill Respiratory: Chest Non Tender, Lungs Clear, Normal Breath Sounds, No Accessory Muscle Use, No Respiratory Distress Cardiovascular: Regular Rate, Rhythm, No Edema, No Gallop, No JVD, No Murmur, Normal Peripheral Pulses Neurologic/Psychiatric: Alert, Oriented x3, No Motor/Sensory Deficits, Normal Mood/Affect Hospital Course Was the Problem List Reviewed?: Yes Hospital Course: Pt had a brief hospital course for GI bleed and severe anemia requiring transfusions with close monitoring of fluid overload. Cardiology was consulted and they discontinued Brilinta in addition to Eliquis and placed him on Plavix due to recent stent placement. Pt was back to his baseline. He will need and outpatient scope likely from a diverticulitis diverticular bleed. He will be maintained on Augmentin for completion of the antibiotic course for diverticulitis and follow up with Dr. Shearer for Colonoscopy. He will resume all his longterm orders for skilled care. Labs (last 24 hrs) Laboratory Tests 12/27/18 21:30: Glucometer 271H 12/28/18 05:52: Glucometer 196H 12/28/18 06:30: White Blood Count 13.6H, Red Blood Count 2.95L, Hemoglobin 8.9L, Hematocrit 28L , Mean Corpuscular Volume 94, Mean Corpuscular Hemoglobin 30, Mean Corpuscular Hemoglobin Concent 32, Red Cell Distribution Width 15.2H, Platelet Count 241, Mean Platelet Volume 9.3, Neutrophils (%) (Auto) 86H, Lymphocytes (%) (Auto) 8L , Monocytes (%) (Auto) 6, Eosinophils (%) (Auto) 0, Basophils (%) (Auto) 0, Neutrophils # (Auto) 11.7H, Lymphocytes # (Auto) 1.0, Monocytes # (Auto) 0.9, Eosinophils # (Auto) 0.1, Basophils # (Auto) 0.0, Sodium Level 137, Potassium Level 4.4, Chloride Level 109H, Carbon Dioxide Level 20L, Anion Gap 8, Blood Urea Nitrogen 35H, Creatinine 2.57H, Estimat Glomerular Filtration Rate 24, BUN/ Creatinine Ratio 14, Glucose Level 195H, Calcium Level 8.5, Corrected Calcium 9.3, Total Bilirubin 0.9, Aspartate Amino Transf (AST/SGOT) 16, Alanine Aminotransferase (ALT/SGPT) 16, Alkaline Phosphatase 51, Total Protein 5.4L, Albumin 3.0L 12/28/18 11:45: Glucometer 272H 12/28/18 12:15: Lab Scanned Report Transfusion Reaction Form 12/28/18 16:10: Glucometer 225H 12/28/18 20:01: Glucometer 300H Microbiology 12/26/18 Blood Culture - Preliminary, Resulted No growth Patient resulted labs reviewed. Pending Labs Laboratory Tests 12/28/18 12:15: Lab Scanned Report Transfusion Reaction Form 12/28/18 16:10: Glucometer 225 12/28/18 20:01: Glucometer 300 Discussion & Recommendations Discharge Planning: <30 minutes discharge planning Discharge Home Medications: Active Scripts Active Augmentin 500-125 Tablet (Amoxicillin/Potassium Clav) 1 Each Tablet 1 Each PO BID Bumetanide 1 Mg Tablet 1 Mg PO BID 30 Days Metoprolol Succinate 25 Mg Tab.er.24h 25 Mg PO DAILY 30 Days Clopidogrel (Clopidogrel Bisulfate) 75 Mg Tablet 75 Mg PO DAILY 30 Days Ondansetron Odt (Ondansetron) 4 Mg Tab.rapdis 4 Mg PO Q6H PRN 30 Days Reported Trulicity (Dulaglutide) 0.75 Mg/0.5 Ml Pen.injctr 0.75 Mg SQ WEEK Levemir Flextouch (Insulin Detemir) 100 Unit/1 Ml Insuln.pen 25 Unit SQ DAILY Miralax (Polyethylene Glycol 3350) 17 Gm Powd.pack 17 Gm PO DAILY PRN Brilinta (Ticagrelor) 90 Mg Tablet 90 Mg PO BID Atorvastatin Calcium 10 Mg Tablet 10 Mg PO HS Pantoprazole Sodium 40 Mg Tablet.dr 40 Mg PO DAILY Aspirin EC (Aspirin) 81 Mg Tablet.dr 81 Mg PO DAILY TAKE THROUGH THE END OF NOVEMBER Flomax (Tamsulosin HCl) 0.4 Mg Cap 0.4 Mg PO DAILY Sucralfate 1 Gm Tablet 1 Gm PO ACHS Tylenol Arthritis (Acetaminophen) 650 Mg Tablet.er 1,300 Mg PO DAILY PRN Albuterol Sulfate 2.5 Mg/3 Ml Vial.neb 2.5 Mg NEB TID PRN Levemir Flextouch (Insulin Detemir) 100 Unit/1 Ml Insuln.pen 20 Unit SQ HS Glipizide 5 Mg Tablet 5 Mg PO BID Toprol Xl (Metoprolol Succinate) 50 Mg Tab.er.24h 50 Mg PO DAILY Calcitriol 0.25 Mcg Capsule 0.25 Mcg PO MOWEFR Bumetanide 2 Mg Tablet 2 Mg PO BID Prednisone 5 Mg Tablet 5 Mg PO BID Eliquis (Apixaban) 2.5 Mg Tablet 2.5 Mg PO BID Instructions to patient/family Please see electronic discharge instructions given to patient. Clinical Quality Measures DVT/VTE Risk/Contraindication: Risk Factor Score Per Nursin RFS Level Per Nursing on Admit: 4+=Very High Problem Qualifiers (1) Leukocytosis: Leukocytosis type: leukemoid reaction Qualified Codes: D72.823 - Leukemoid reaction (2) Sepsis: Sepsis type: sepsis due to unspecified organism Qualified Codes: A41.9 - Sepsis, unspecified organism (3) Chronic renal failure: Chronic kidney disease stage: unspecified stage Qualified Codes: N18.9 - Chronic kidney disease, unspecified (4) Diabetes mellitus: Diabetes mellitus type: type 2 Diabetes mellitus correction insulin use: with correction use Diabetes mellitus complication detail: with chronic kidney disease Chronic kidney disease stage: stage 3 (moderate) (5) CAD (coronary artery disease): Coronary Disease-Associated Artery/Lesion type: [place] artery [place] vs. transplanted heart: [place] heart Associated angina: without angina Qualified Codes: I25.10 - Atherosclerotic heart disease of [place] coronary artery without angina pectoris (6) Sepsis: Sepsis type: sepsis due to unspecified organism Qualified Codes: A41.9 - Sepsis, unspecified organism (7) Acute renal failure superimposed on stage 3 chronic kidney disease: Acute renal failure type: unspecified Qualified Codes: N17.9 - Acute kidney failure, unspecified; N18.3 - Chronic kidney disease, stage 3 (moderate) JACKELINE CEE DO Dec 28, 2018 10:14
[2018-12-28] MEDS ORDERED: AMOX-355 PO (10:23)
[2018-12-28] MEDS ORDERED: DULA0.75 SQ (11:05)
[2018-12-28] MEDS ORDERED: INSU100I29 SQ (11:05)
--- NOTE | 2018-12-28 11:05 | NUR ---
DISCHARGE INITIATED PRIOR TO MED REC COMPLETION. I RECEIVED THE PHYSICIAN VISIT FORM FROM [facility] AT THIS TIME AND CORRECTED THE LEVEMIR DOSE AND ADDED TRULICITY. THE OTHER MEDICATIONS THAT ARE ON THE MED REC INCORRECTLY HAVE BEEN CHANGED DURING THIS STAY AND THEREFORE NOT EDITED AT THIS TIME SINCE DISCHARGE IS ALREADY DONE.
--- NOTE | 2018-12-28 11:19 | Cardiology Progress Note ---
Cardiology SOAP Progress Note Subjective: No cardiac complaints. Objective: I&O/Vital Signs 12/28/18 12/28/18 12/28/18 12/28/18 00:53 01:00 04:00 07:07 Temp 98.4 98.6 Pulse 91 107 85 80 Resp 20 18 B/P (MAP) 116/59 (78) 125/81 (96) Pulse Ox 94 94 O2 Delivery Room Air Room Air 12/28/18 00:00 Intake Total 3980 ml Output Total 650 ml Balance 3330 ml Weight (Pounds): 200 Weight (Ounces): 10.0 Weight (Calculated Kilograms): [id number] Constitutional: AAO x 3, well-developed, well-nourished Respiratory: No accessory muscle use; chest is bilaterally symmetric, lungs clear to auscultation, other (fair to good bilat air entry, somewhat prolonged exp phase, bs somewhat diminished at the bases) Cardiovascular: regular rate-rhythm, S1 and S2, systolic murmur (soft KEELEY at card base) Gastrointestional: No tender; soft; No guarding, No rebound; audible bowel sounds Extremities: other (bruising at sites of iv sticks; bruising along the medial aspect of R thigh and R anterior leg); No clubbing, No cyanosis Neurologic/Psychiatric: oriented x 3, grossly intact, power is 5/5 both on sides Skin: No rash on exposed areas, No ulcerations on exposed areas; other (for burising description, see Extremeties exam) Results/Procedures: Labs Laboratory Tests 12/27/18 11:40: Glucometer 120H 12/27/18 16:18: Glucometer 128H 12/27/18 17:56: Hemoglobin 9.0#L, Hematocrit 28L 12/27/18 21:30: Glucometer 271H 12/28/18 05:52: Glucometer 196H 12/28/18 06:30: White Blood Count 13.6H, Red Blood Count 2.95L, Hemoglobin 8.9L, Hematocrit 28L , Mean Corpuscular Volume 94, Mean Corpuscular Hemoglobin 30, Mean Corpuscular Hemoglobin Concent 32, Red Cell Distribution Width 15.2H, Platelet Count 241, Mean Platelet Volume 9.3, Neutrophils (%) (Auto) 86H, Lymphocytes (%) (Auto) 8L , Monocytes (%) (Auto) 6, Eosinophils (%) (Auto) 0, Basophils (%) (Auto) 0, Neutrophils # (Auto) 11.7H, Lymphocytes # (Auto) 1.0, Monocytes # (Auto) 0.9, Eosinophils # (Auto) 0.1, Basophils # (Auto) 0.0, Sodium Level 137, Potassium Level 4.4, Chloride Level 109H, Carbon Dioxide Level 20L, Anion Gap 8, Blood Urea Nitrogen 35H, Creatinine 2.57H, Estimat Glomerular Filtration Rate 24, BUN/ Creatinine Ratio 14, Glucose Level 195H, Calcium Level 8.5, Corrected Calcium 9.3, Total Bilirubin 0.9, Aspartate Amino Transf (AST/SGOT) 16, Alanine Aminotransferase (ALT/SGPT) 16, Alkaline Phosphatase 51, Total Protein 5.4L, Albumin 3.0L Microbiology 12/26/18 Blood Culture - Preliminary, Resulted No growth A/P: Assessment/Dx: Active GI bleed S/p VALENTIN of prox LAD by Dr Esequiel Clark in Oct 2018 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 Previously on dialysis, Dr Janet Clark, that was d/c'd in February 2018 PAF H/o hypertension Rheumatoid arthritis Hypokalemia Plan: * Complex management * Continues with GI bleed that has req'd multiple transfusion and he still markedly anemic (worse compared to time of admission) * He had previously been on triple therapy with Eliquis, Brilinta, and aspirin. Eliquis and ASA had been d/c'd after previous bleeds in the recent past. Was on Brilinta at time of admission. We switched to clopidogrel in effort to reduce risk of bleeding. Need to continue with at least one antiplatelet agents , given recent VALENTIN stenting of the LAD Thank you for your consultation. Please call me if you have any questions. Mireille Clark MD, FACP, FACC, FSCAI, FHRS, CCDS Interventional Cardiology Cardiac Electrophysiology Vascular Medicine and Endovascular Interventions Focused Exam Lactate Level 12/26/18 15:35: Lactic Acid Level 1.82 Abner CLARK MD Dec 28, 2018 11:19
[2018-12-28 12:00] VITALS: BP 135/72
[2018-12-28 16:00] VITALS: BP 135/63
--- NOTE | 2018-12-28 16:47 | Progress Note (SOAP) ---
Subjective Date Seen by a Provider: Dec 28, 2018 Time Seen by a Provider: 16:30 Subjective/Events-last exam patient upset this morning after having what he reports as blood per rectum in bed on 2 seperate occassions as well as in toilet. patient switched to plavix. patient states bleeding per rectum ongoing for one 1 week and he has felt better since admission and transfusion. blood described as bright red and again may be associated with diverticular vs hemorrhoidal bleeding. Focused Exam Lactate Level 12/26/18 15:35: Lactic Acid Level 1.82 Objective Exam Vital Signs Date Time Temp Pulse Resp B/P (MAP) Pulse Ox O2 Delivery O2 Flow Rate FiO2 12/28/18 13:11 88 12/28/18 12:00 97.6 87 18 135/72 (93) 94 Room Air 12/28/18 08:00 97.1 87 18 137/68 (91) 97 Room Air 12/28/18 07:07 80 12/28/18 04:00 98.6 85 18 125/81 (96) 94 Room Air 12/28/18 01:00 107 12/28/18 00:53 98.4 91 20 116/59 (78) 94 Room Air 12/27/18 20:00 99.1 93 22 125/70 (88) 96 Room Air 12/27/18 20:00 Room Air 12/27/18 19:00 100 I & O 12/28/18 07:00 Intake Total 4890 ml Output Total 950 ml Balance 3940 ml Capillary Refill : Less Than 3 Seconds General Appearance: No Apparent Distress HEENT: PERRL/EOMI Neck: Full Range of Motion Respiratory: Decreased Breath Sounds Cardiovascular: Regular Rate, Rhythm Gastrointestinal: normal bowel sounds, soft, tenderness Extremity: Normal Capillary Refill Neurologic/Psychiatric: Alert, Oriented x3 Skin: Normal Color Lymphatic: No Adenopathy Results Lab Laboratory Tests 12/27/18 17:56: Hemoglobin 9.0#L, Hematocrit 28L 12/27/18 21:30: Glucometer 271H 12/28/18 05:52: Glucometer 196H 12/28/18 06:30: Hemoglobin 8.9L, Hematocrit 28L, White Blood Count 13.6H, Red Blood Count 2.95L , Mean Corpuscular Volume 94, Mean Corpuscular Hemoglobin 30, Mean Corpuscular Hemoglobin Concent 32, Red Cell Distribution Width 15.2H, Platelet Count 241, Mean Platelet Volume 9.3, Neutrophils (%) (Auto) 86H, Lymphocytes (%) (Auto) 8L , Monocytes (%) (Auto) 6, Eosinophils (%) (Auto) 0, Basophils (%) (Auto) 0, Neutrophils # (Auto) 11.7H, Lymphocytes # (Auto) 1.0, Monocytes # (Auto) 0.9, Eosinophils # (Auto) 0.1, Basophils # (Auto) 0.0, Sodium Level 137, Potassium Level 4.4, Chloride Level 109H, Carbon Dioxide Level 20L, Anion Gap 8, Blood Urea Nitrogen 35H, Creatinine 2.57H, Estimat Glomerular Filtration Rate 24, BUN/ Creatinine Ratio 14, Glucose Level 195H, Calcium Level 8.5, Corrected Calcium 9.3, Total Bilirubin 0.9, Aspartate Amino Transf (AST/SGOT) 16, Alanine Aminotransferase (ALT/SGPT) 16, Alkaline Phosphatase 51, Total Protein 5.4L, Albumin 3.0L 12/28/18 11:45: Glucometer 272H 12/28/18 12:15: Lab Scanned Report Transfusion Reaction Form 12/28/18 16:10: Glucometer 225H Microbiology 12/26/18 Blood Culture - Preliminary, Resulted No growth Assessment/Plan Assessment/Plan Assess & Plan/Chief Complaint diverticular bleed as well as acute diverticulitis. reports 2 episodes of red blood per rectum this morning despite laboratory Hb stable. patient distressed due to continued bleeding complication. will monitor overnight. advance to low residue diet. Clinical Quality Measures DVT/VTE Risk/Contraindication: Risk Factor Score Per Nursin RFS Level Per Nursing on Admit: 4+=Very High MAGDA CRAIG MD Dec 28, 2018 16:47
--- NOTE | 2018-12-28 17:57 | NUR ---
Dr. Shearer here for rounds - patient staying over night
[2018-12-28 20:17] VITALS: BP 152/72
[2018-12-28] MEDS: HYDROcodone/APAP 7.5 MG/325 MG (LORTAB, LORCET PLUS) TABLET PO PRN (21:44)
[2018-12-28] MEDS: ATORVASTATIN 10 MG (LIPITOR) TABLET PO SCH (21:44)
[2018-12-29 00:40] VITALS: BP 125/74
[2018-12-29] MEDS: metroNIDAZOLE 500 MG/100 ML IVPB (PRE-MIX) IV SCH ×2 (04:04→11:52)
[2018-12-29 04:15] VITALS: BP 159/77
[2018-12-29] MEDS: PIPERACILLIN/TAZO 4.5 GM/NS 100 ML IV SCH ×4 (05:09→11:52)
[2018-12-29 07:49] VITALS: BP 138/76
[2018-12-29] MEDS: TAMSULOSIN 0.4 MG (FLOMAX) CAP PO SCH (08:54)
[2018-12-29] MEDS: predniSONE 5 MG TAB PO SCH (08:54)
[2018-12-29] MEDS: PANTOPRAZOLE 40 MG (PROTONIX) TAB PO SCH (08:54)
[2018-12-29] MEDS: CLOPIDOGREL 75 MG (PLAVIX) TABLET PO SCH (08:54)
[2018-12-29] MEDS: HYDROcodone/APAP 7.5 MG/325 MG (LORTAB, LORCET PLUS) TABLET PO PRN (08:55)
[2018-12-29] MEDS ORDERED: SUCRALFATE 1 GM (CARAFATE) TAB PO NR (09:00)
[2018-12-29 09:01] LABS: BASOPHILS % (AUTO) 0 % (0-10); EOSINOPHILS # (AUTO) 0.2 10^3/uL (0.0-0.3); EOSINOPHILS % (AUTO) 2 % (0-10); HEMATOCRIT 29 % (40-54); HEMOGLOBIN 9.3 G/DL (13.3-17.7); LYMPHOCYTES # (AUTO) 1.3 X 10^3 (1.0-4.0); LYMPHOCYTES % (AUTO) 11 % (12-44); MEAN CORPUSCULAR HEMOGLOBIN 30 PG (25-34); MEAN CORPUSCULAR HGB CONC 32 G/DL (32-36); MEAN CORPUSCULAR VOLUME 94 FL (80-99); MEAN PLATELET VOLUME 9.5 FL (7.4-10.4); MONOCYTES # (AUTO) 0.7 X 10^3 (0.0-1.0); MONOCYTES % (AUTO) 6 % (0-12); NEUTROPHILS # (AUTO) 9.8 X 10^3 (1.8-7.8); NEUTROPHILS % (AUTO) 81 % (42-75); PLATELET COUNT 264 10^3/uL (130-400); WHITE BLOOD COUNT 12.1 10^3/uL (4.3-11.0)
--- NOTE | 2018-12-29 10:06 | NUR ---
CM/SS. Patient discharged back to established placement with [facility], [facility] skilled services. Transport time is to be determined by [place] schedule, around 1130. Left message for daughter Radha Hunt. Unit RN aware. Faxed orders, prepared packet to accompany patient.
[2018-12-29] MEDS ORDERED: SUCRALFATE 1 GM (CARAFATE) TAB PO SCH (11:00)
[2018-12-29 12:35] VITALS: BP 138/76
--- NOTE | 2018-12-30 14:10 | Physician Query Clarification ---
PQ-Further Specificity Admission/Discharge Admission Date: Dec 26, 2018 at 18:26 Discharge Date: Dec 29, 2018 at 12:37 The medical record reflects the following clinical scenario: History/Risk Factors: Diverticulitis, GI bleed, Acute on chronic renal failure, THT Clinical Findings: WBC 17.5, Lactic acid 1.82, T99.6, P 117, R 32, BP 154/87 Treatment: IV Zosyn Question: Can you further specify Sepsis w/diverticulitis per the clinical indicators above? Please document below. 1. Sepsis with diverticulitis due to inflammation 2. Sepsis with diverticulitis due to infection 3. Diverticulitis, sepsis ruled out 3. Other, with explanation of the clinical findings. 4. Clinically undetermined, no explanation for the clinical findings. PHYSICIAN RESPONSE Can you specify per above: 2 In responding to this query, please exercise your independent professional judgment. The purpose of this communication is to more accurately reflect the complexity of your patients condition. The fact that a question is asked does not imply that any particular answer is desired or expected. Thank you for your timely response to this clarification. Requestors name: Isaiah THIS PHYSICIAN QUERY FORM IS A PERMANENT PART OF THE MEDICAL RECORD ISAIAH SALMERON Dec 30, 2018 14:09 JACKELINE CEE DO Dec 30, 2018 21:37
== END 2018-12-29 12:37 | DRG 871 ==
LOC: EDUNIT# 15:20 → ER 15:21 → 4TH 18:26
PROVIDERS: ADMIT Family Medicine; ATTEND Family Medicine
DX: A41.9 Sepsis, unspecified organism (principal); K57.33 Diverticulitis of large intestine without perforation or abscess with bleeding; K64.9 Unspecified hemorrhoids; D62 Acute posthemorrhagic anemia; N17.9 Acute kidney failure, unspecified; N18.3 Chronic kidney disease, stage 3 (moderate); E11.21 Type 2 diabetes mellitus with diabetic nephropathy; I25.10 Atherosclerotic heart disease of native coronary artery without angina pectoris; I12.9 Hypertensive chronic kidney disease with stage 1 through stage 4 chronic kidney disease, or unspecified chronic kidney disease; E87.6 Hypokalemia; I48.0 Paroxysmal atrial fibrillation; N40.0 Benign prostatic hyperplasia without lower urinary tract symptoms; M19.91 Primary osteoarthritis, unspecified site; M06.9 Rheumatoid arthritis, unspecified; H35.30 Unspecified macular degeneration; Z95.5 Presence of coronary angioplasty implant and graft; Z86.19 Personal history of other infectious and parasitic diseases; Z87.891 Personal history of nicotine dependence
CPT/HCPCS: 36415; 71045; 74176; 80053; 81000; 82962; 83605; 83690; 83735; 83880; 85007; 85014; 85018; 85025; 85027; 85610; 85730; 86141; 86850; 86900; 86901; 86920; 87040; 96361; 96365; 96375

== ENCOUNTER 2019-01-05 07:35 | Emergency (ER) | payer MEDICARE ==
[~2019-01-05] VITALS: Ht 170.2 cm; Wt 90.7 kg
[~2019-01-05 07:35] MED LIST changes: +AMOX-355 PO; +CLOP75TA28 PO; +DULA0.75 SQ; +METO-387 PO
[2019-01-05] MEDS ORDERED: NS IV 1000 ML 1,000 ML IV STA (07:55)
[2019-01-05] MEDS ORDERED: fentaNYL INJECTION 100 MCG/2 ML AMP IVP STA ×2 (07:55→12:40)
[2019-01-05] MEDS ORDERED: ONDANSETRON 4 MG/2 ML (SDV) Z0FRAN IVP ONE (08:00)
[2019-01-05 08:03] LABS: BASOPHILS # (AUTO) 0.1 10^3/uL (0.0-0.1); BASOPHILS % (AUTO) 0 % (0-10); EOSINOPHILS % (AUTO) 0 % (0-10); HEMATOCRIT 35 % (40-54); HEMOGLOBIN 11.4 G/DL (13.3-17.7); LYMPHOCYTES # (AUTO) 2.1 X 10^3 (1.0-4.0); LYMPHOCYTES % (AUTO) 8 % (12-44); MEAN CORPUSCULAR HEMOGLOBIN 30 PG (25-34); MEAN CORPUSCULAR HGB CONC 33 G/DL (32-36); MEAN CORPUSCULAR VOLUME 91 FL (80-99); MEAN PLATELET VOLUME 9.5 FL (7.4-10.4); MONOCYTES # (AUTO) 1.6 X 10^3 (0.0-1.0); MONOCYTES % (AUTO) 6 % (0-12); NEUTROPHILS # (AUTO) 23.7 X 10^3 (1.8-7.8); NEUTROPHILS % (AUTO) 86 % (42-75); PLATELET COUNT 282 10^3/uL (130-400); RED CELL DISTRIBUTION WIDTH 14.3 % (10.0-14.5); WHITE BLOOD COUNT 27.4 10^3/uL (4.3-11.0)
--- NOTE | 2019-01-05 08:15 | NUR ---
lab in room at this time.
[2019-01-05 08:21] LABS: ALBUMIN 3.3 GM/DL (3.2-4.5); CREATININE SERUM 2.98 MG/DL (0.60-1.30); POTASSIUM 3.6 MMOL/L (3.6-5.0); TOTAL PROTEIN 6.4 GM/DL (6.4-8.2)
[2019-01-05 08:40] LABS: INR 1.1 (0.8-1.4); PROTHROMBIN TIME PATIENT 14.5 SEC (12.2-14.7)
--- NOTE | 2019-01-05 08:56 | NUR ---
NOTIFIED PT'S DAUGHTER WAS HERE AND WOULD LIKE TO TALK TO HIM.
[2019-01-05 08:57] LABS: BAND NEUTROPHILS 7 %; BASOPHILS % (MANUAL) 0 %; EOSINOPHILS % (MANUAL) 0 %; LYMPHOCYTES % (MANUAL) 6 %; MONOCYTES % (MANUAL) 6 %; NEUTROPHILS % (MANUAL) 81 %; RBC MORPH NORMAL
--- NOTE | 2019-01-05 09:05 | Diagnostic Imaging Report ---
CLINICAL INDICATION: Patient fell hitting head. EXAM: Head CT without IV contrast. Axial CT scan of the cervical spine with sagittal and coronal reformations. COMPARISON: None. FINDINGS: HEAD CT: There is no evidence of acute cerebral infarct, intracranial hemorrhage, or gross mass effect. The brain parenchymal volume appears appropriate for patient's age. There is multiple focal areas of low-attenuation white matter changes involving both cerebral hemispheres, likely representing chronic small vessel ischemic disease. Likely small chronic lacunar infarcts involving bilateral basal ganglia regions and anterior limb of the left internal capsule/crow radiata region. There is normal amaro-white matter distinction. There is no significant midline shift or herniation. There is no evidence of hydrocephalus. The basal cisterns are unremarkable. The skull, extracranial soft tissue, and orbits are unremarkable. There is minimal ethmoid sinus and bilateral maxillary sinus mucosal thickening. Temporal bones show no significant abnormality. CERVICAL SPINE: There is no acute cervical spine fracture or dislocation. There are cervical spine degenerative spurs, uncinate spurs, and facet arthropathy seen. There is at least mild central canal narrowing at the C6-C7 level. There is [id number] bilateral neural foramen narrowing at the C6-C7 and left C5-C6 level. There is severe right C3-C4 neural foramen narrowing. There is a prominent periodontoid pannus noted. There is grossly 5 mm low-density nodule involving the right thyroid gland. The neck soft tissue structures show no other significant abnormality. Visualized upper lung ruano are clear. IMPRESSION: 1: There is no evidence of acute intracranial process. There is no skull fracture. 2: There is multilevel cervical spine degenerative disease with no acute cervical spine fracture or dislocation. 3: The brain parenchyma shows chronic small vessel ischemic disease and chronic lacunar infarcts. 4: There is a 5 mm right thyroid gland nodule. Nonemergent thyroid ultrasound would better evaluate. Dictated by: Dictated on workstation # [id number]
--- NOTE | 2019-01-05 09:06 | NUR ---
DR PRIDE IN ROOM TALKING WITH DAUGHTER AT THIS TIME. PT BACK FROM CT. STATES HE FEELS BETTER AFTER THE PAIN MED.
--- NOTE | 2019-01-05 09:40 | ED General ---
General Chief Complaint: Trauma-Non Activation Stated Complaint: FALL Nursing Triage Note: ARRIVED VIA EMS FROM [facility]. STATES HE FELL AT [facility] 0400 THIS AM ET HITTING HIS HEAD. DENIES LOC OR NECK PAIN. STATES HE FELL OVER HIS WC. COMPLAINS OF ABD PAIN. STATES HE WAS JUST RELEASED FROM THE HOSPITAL WITH A GI BLEED. Nursing Sepsis Screen: Possible Sepsis Risk Source of Information: Patient Exam Limitations: No Limitations History of Present Illness Date Seen by Provider: Jan 05, 2019 Time Seen by Provider: 07:45 Initial Comments Here with report of fall this morning at the intermediate. Denies loss of consciousness or hitting head but is complaining of weakness and significant abdominal pain. Recent admission for diverticulitis and GI bleed. Return back to intermediate but states has not gotten better over the last couple of days. Complains of significant lower abdominal pain. Overall things have worsened over the last week since being discharged. Denies blood in urine or stools. Does have some diarrhea. Location Injury Occurred: [facility] Timing/Duration: 1 Week, Getting Worse Severity: Moderate Associated Systoms: No Chest Pain, No Cough, No Fever/Chills; Loss of Appetite ; No Nausea/Vomiting, No Shortness of Air; Weakness Allergies and Home Medications Allergies Coded Allergies: No Known Drug Allergies (Verified , 11/18/18) Home Medications Acetaminophen 650 Mg Tablet.er, 1,300 MG PO DAILY PRN for PAIN-MILD, (Reported) Albuterol Sulfate 2.5 Mg/3 Ml Vial.neb, 2.5 MG NEB TID PRN for SHORTNESS OF BREATH, (Reported) Amoxicillin/Potassium Clav 1 Each Tablet, 1 EACH PO BID Prescribed by: JACKELINE CEE on 12/28/18 1023 Atorvastatin Calcium 10 Mg Tablet, 10 MG PO HS, (Reported) Bumetanide 1 Mg Tablet, 1 MG PO BID Prescribed by: JACKELINE CEE on 12/28/18 1012 Calcitriol 0.25 Mcg Capsule, 0.25 MCG PO MoWeFr, (Reported) Clopidogrel Bisulfate 75 Mg Tablet, 75 MG PO DAILY Prescribed by: JACKELINE CEE on 12/28/18 1012 Dulaglutide 0.75 Mg/0.5 Ml Pen.injctr, 0.75 MG SQ WEEK, (Reported) Insulin Detemir 100 Unit/1 Ml Insuln.pen, 20 UNIT SQ HS, (Reported) Insulin Detemir 100 Unit/1 Ml Insuln.pen, 25 UNIT SQ DAILY, (Reported) Metoprolol Succinate 25 Mg Tab.er.24h, 25 MG PO DAILY Prescribed by: JACKELINE CEE on 12/28/18 1012 Ondansetron 4 Mg Tab.rapdis, 4 MG PO Q6H PRN for NAUSEA/VOMITING-1ST LINE Prescribed by: JACKELINE CEE on 12/16/18 1156 Pantoprazole Sodium 40 Mg Tablet.dr, 40 MG PO DAILY, (Reported) Polyethylene Glycol 3350 17 Gm Powd.pack, 17 GM PO DAILY PRN for CONSTIPATION- 2ND LINE, (Reported) Prednisone 5 Mg Tablet, 5 MG PO BID, (Reported) Sucralfate 1 Gm Tablet, 1 GM PO ACHS, (Reported) Tamsulosin HCl 0.4 Mg Cap, 0.4 MG PO DAILY, (Reported) Patient Home Medication List Home Medication List Reviewed: Yes Review of Systems Review of Systems Constitutional: see HPI; No chills, No fever; malaise, weakness EENTM: no symptoms reported Respiratory: No cough, No short of breath Cardiovascular: No chest pain; edema Gastrointestinal: abdominal pain, diarrhea, nausea; No vomiting Genitourinary: no symptoms reported Musculoskeletal: No back pain; muscle pain, muscle weakness; No neck pain Skin: change in color (multiple ecchymosis lesions to the arms); No lesions Psychiatric/Neurological: Denies Headache; Weakness All Other Systems Reviewed Negative Unless Noted: Yes Past Xxoeaev-Nndtkf-Acpdqo Hx Past Med/Social Hx: Reviewed Nursing Past Med/Soc Hx Patient Social History Alcohol Use: Past History Number of Drinks Today: Alcohol Beverage of Choice: Beer, Wine Recreational Drug Use: No Smoking Status: Former Smoker Type Used: Cigars, Cigarettes Former Smoker, Quit: Apr 01, 1978 2nd Hand Smoke Exposure: No Recent Foreign Travel: No Contact w/Someone Who Travel: No Recent Infectious Disease Expo: No Recent Hopitalizations: No Immunizations Up To Date Tetanus Booster (TDap): Unknown PED Vaccines UTD: No Date of Pneumonia Vaccine: Jan 13, 2014 Date of Influenza Vaccine: Jul 06, 2018 Seasonal Allergies Seasonal Allergies: No Past Medical History Surgeries: Yes Coronary Stent, Orthopedic Respiratory: No Currently Using CPAP: No Currently Using BIPAP: No Cardiac: Yes Coronary Artery Disease, Hypertension Neurological: No Genitourinary: Yes Benign Prostatic Hyperpl, Kidney Infection, Renal Failure, Dialysis Gastrointestinal: Yes Abdominal Hernia, Gastroesophageal Reflux, Gastrointestinal Bleed, Diverticulosis Musculoskeletal: Yes Arthritis, Rheumatoid Arthritis Endocrine: Yes Diabetes, Non-Insulin dep HEENT: Yes Macular Degeneration Cancer: No Psychosocial: No Integumentary: No Psoriasis Blood Disorders: No Adverse Reaction/Blood Tranf: No Family Medical History Reviewed Nursing Family Hx Diabetes mellitus 19 MOTHER G8 BROTHER FH: pancreatic cancer 19 FATHER Diabetes Physical Exam-Suspected Sepsis Physical Exam Vital Signs Vital Signs - First Documented 01/05/19 01/05/19 07:35 08:15 Temp 101.3 Pulse 123 Resp 20 B/P (MAP) 120/69 (86) Pulse Ox 96 O2 Delivery Room Air O2 Flow Rate 2.00 Capillary Refill : Less Than 3 Seconds Blood Pressure Mean: 86 Height, Weight, BMI Height: 5'7.00" Weight: 200lbs. 10.0oz. 90.994579jj; 31.4 BMI Method:Stated General Appearance: No Apparent Distress, WD/WN HEENT: PERRL/EOMI, Pharynx Normal Neck: Non Tender, Supple Respiratory: Lungs Clear, Normal Breath Sounds Cardiovascular: No Murmur, Tachycardia Gastrointestinal: Soft, Distended, Tenderness (diffusely but greatest lower abdomen.) Back: Normal Inspection, No CVA Tenderness, No Vertebral Tenderness Extremity: Normal Range of Motion, Non Tender, Pedal Edema (bilateral lower extremities 2+ to the mid tibia) Neurologic/Psychiatric: Alert, Oriented x3 Skin: warm/dry, ecchymosis (multiple ecchymotic lesions to the arms.) Focused Exam Lactate Level 01/05/19 08:17: Lactic Acid Level 3.03*H 01/05/19 10:50: Lactic Acid Level 2.25*H Lactic Acid Level Laboratory Tests Test 01/05/19 10:50 Lactic Acid Level 2.25 MMOL/L (0.50-2.00) *H Procedures/Interventions Lumen: triple Central Line Procedure: betadine prep, sterile drapes applied, sterile dressing applied Position: internal jugular (R) Anesthesia: local Volume Anesthetic (ccs): 4 Complications: none Post Position: sutured, good blood return, position confirmed w/ CXR Placed ultrasound guidance 2 sticks. Difficult procedure due to positioning of the patient due to discomfort. Otherwise tolerated well with no complications. Chest x-ray shows line in good position without pneumothorax. Progress/Results/Core Measures Suspected Sepsis Recent Fever Within 48 Hours: Yes Infection Criteria Present: Suspected New Infection New/Unexplained Altered Menta: No Sepsis Screen: Possible Sepsis Risk SIRS Temperature:100.5 Pulse: 123 Respiratory Rate: 20 Laboratory Tests 01/05/19 07:55: White Blood Count 27.4H Blood Pressure 120 /69 Mean: 86 01/05/19 08:17: Lactic Acid Level 3.03*H 01/05/19 10:50: Lactic Acid Level 2.25*H Laboratory Tests 01/05/19 07:55: Creatinine 2.98H, Platelet Count 282, Total Bilirubin 1.0 01/05/19 08:17: INR Comment 1.1 Results/Orders Lab Results Laboratory Tests Test 01/05/19 07:55 01/05/19 08:17 01/05/19 10:50 01/05/19 11:53 Range/Units White Blood Count 27.4 H 4.3-11.0 10^3/uL Red Blood Count 3.84 L 4.35-5.85 10^6/uL Hemoglobin 11.4 #L 13.3-17.7 G/DL Hematocrit 35 L 40-54 % Mean Corpuscular Volume 91 80-99 FL Mean Corpuscular Hemoglobin 30 25-34 PG Mean Corpuscular Hemoglobin Concent 33 32-36 G/DL Red Cell Distribution Width 14.3 10.0-14.5 % Platelet Count 282 130-400 10^3/uL Mean Platelet Volume 9.5 7.4-10.4 FL Neutrophils (%) (Auto) 86 H 42-75 % Lymphocytes (%) (Auto) 8 L 12-44 % Monocytes (%) (Auto) 6 0-12 % Eosinophils (%) (Auto) 0 0-10 % Basophils (%) (Auto) 0 0-10 % Neutrophils # (Auto) 23.7 H 1.8-7.8 X 10^3 Lymphocytes # (Auto) 2.1 1.0-4.0 X 10^3 Monocytes # (Auto) 1.6 H 0.0-1.0 X 10^3 Eosinophils # (Auto) 0.0 0.0-0.3 10^3/uL Basophils # (Auto) 0.1 0.0-0.1 10^3/uL Neutrophils % (Manual) 81 % Lymphocytes % (Manual) 6 % Monocytes % (Manual) 6 % Eosinophils % (Manual) 0 % Basophils % (Manual) 0 % Band Neutrophils 7 % Blood Morphology Comment NORMAL Sodium Level 131 L 135-145 MMOL/L Potassium Level 3.6 3.6-5.0 MMOL/L Chloride Level 95 L 98-107 MMOL/L Carbon Dioxide Level 20 L 21-32 MMOL/L Anion Gap 16 H 5-14 MMOL/L Blood Urea Nitrogen 44 H 7-18 MG/DL Creatinine 2.98 H 0.60-1.30 MG/DL Estimat Glomerular Filtration Rate 20 BUN/Creatinine Ratio 15 Glucose Level 380 H 70-105 MG/DL Calcium Level 9.0 8.5-10.1 MG/DL Corrected Calcium 9.6 8.5-10.1 MG/DL Total Bilirubin 1.0 0.1-1.0 MG/DL Aspartate Amino Transf (AST/SGOT) 12 5-34 U/L Alanine Aminotransferase (ALT/SGPT) 17 0-55 U/L Alkaline Phosphatase 58 40-136 U/L Troponin I 0.325 *H <0.028 NG/ML B-Type Natriuretic Peptide 239.3 H <100.0 PG/ML Total Protein 6.4 6.4-8.2 GM/DL Albumin 3.3 3.2-4.5 GM/DL Prothrombin Time 14.5 12.2-14.7 SEC INR Comment 1.1 0.8-1.4 Activated Partial Thromboplast Time 36 H 24-35 SEC Lactic Acid Level 3.03 *H 2.25 *H 0.50-2.00 MMOL/L Urine Color YELLOW Urine Clarity SLIGHTLY CLOUDY Urine pH 5 5-9 Urine Specific [place] 1.020 1.016-1.022 Urine Protein 2+ H NEGATIVE Urine Glucose (UA) 3+ H NEGATIVE Urine Ketones 1+ H NEGATIVE Urine Nitrite NEGATIVE NEGATIVE Urine Bilirubin NEGATIVE NEGATIVE Urine Urobilinogen NORMAL NORMAL MG/DL Urine Leukocyte Esterase NEGATIVE NEGATIVE Urine RBC (Auto) NEGATIVE NEGATIVE Urine RBC NONE /HPF Urine WBC NONE /HPF Urine Renal Epithelial Cells RARE /HPF Urine Crystals PRESENT H /LPF Urine Amorphous Sediment FEW HAYLEE URATES H /LPF Urine Bacteria NEGATIVE /HPF Urine Casts PRESENT /LPF Urine Granular Casts RARE /LPF Urine Mucus SMALL H /LPF Urine Culture Indicated NO Test 01/05/19 13:58 Range/Units Glucometer 364 H 70-110 MG/DL My Orders Orders - MARILEE PRIDE MD Ct Abdomen/Pelvis Wo (01/05/19 07:55) Ct Head/Cervical Spine Wo (01/05/19 07:55) Ns Iv 1000 Ml (Sodium Chloride 0.9%) (01/05/19 07:55) Cbc With Automated Diff (01/05/19 07:55) Comprehensive Metabolic Panel (01/05/19 07:55) Blood Culture (01/05/19 07:55) Sputum Culture (01/05/19 07:55) Urinalysis (01/05/19 07:55) Urine Culture (01/05/19 07:55) Protime With Inr (01/05/19 07:55) Partial Thromboplastin Time (01/05/19 07:55) Chest 1 View, Ap/Pa Only (01/05/19 07:55) Ed Iv/Invasive Line Start (01/05/19 07:55) Ed Iv/Invasive Line Start (01/05/19 07:55) Vital Signs Adult Sepsis Patie Q15M (01/05/19 07:55) O2 (01/05/19 07:55) Remove Rings In Anticipation O (01/05/19 07:55) Lactic Acid Analyzer (01/05/19 07:55) Fentanyl Injection (Sublimaze Injection (01/05/19 07:55) Ondansetron Injection (Zofran Injectio (01/05/19 08:00) Manual Differential (01/05/19 07:55) Ceftriaxone For Iv Use (Rocephin For I (01/05/19 10:30) Ekg Tracing (01/05/19 11:07) BNP (01/05/19 11:13) Troponin I (01/05/19 11:13) Acetaminophen Tablet (Tylenol Tablet) (01/05/19 11:20) Catheter(Urinary) Insert & Ass 03,15 (01/05/19 11:44) Straight Cath For Spec.-Adult (01/05/19 11:44) Ns Iv 1000 Ml (Sodium Chloride 0.9%) (01/05/19 11:55) Vancomycin Injection (Vancomycin Injecti (01/05/19 12:45) Fentanyl Injection (Sublimaze Injection (01/05/19 12:40) Chest 1 View, Ap/Pa Only (01/05/19 13:31) Insulin (Regular) Human (Humulin R (Per (01/05/19 14:03) Medications Given in ED Current Medications Medications Dose Ordered Sig/Adrienne Route Start Time Stop Time Status Last Admin Dose Admin Ceftriaxone Sodium 1000 mg/ Sterile Water 10 ml @ 200 mls/hr ONCE ONCE IV 01/05/19 10:30 01/05/19 10:32 DC 01/05/19 10:45 200 MLS/HR Ondansetron HCl 4 mg ONCE ONCE IVP 01/05/19 08:00 01/05/19 08:01 DC 01/05/19 08:07 4 MG Sodium Chloride 1,000 ml @ 0 mls/hr Q0M ONCE IV 01/05/19 11:55 01/05/19 11:56 DC 01/05/19 12:02 1,000 MLS/HR Vital Signs/I&O 01/05/19 01/05/19 01/05/19 01/05/19 07:35 08:15 09:00 11:35 Temp 101.3 100.5 101.2 Pulse 123 Resp 20 B/P (MAP) 120/69 (86) Pulse Ox 96 96 O2 Delivery Room Air Nasal Cannula O2 Flow Rate 2.00 01/05/19 13:04 Temp 99.8 Capillary Refill : Less Than 3 Seconds Blood Pressure Mean: 86 Progress Note : Progress Note Seen and evaluated. IV, labs, UA, chest x-ray, normal saline 1 L bolus, blood cultures and lactic acid ordered. CT head and neck ordered. CT abdomen and pelvis ordered without contrast due to chronic kidney failure. Chest x-ray ordered. Monitor patient. 0935: Lactic acid elevated. I will saline running. White count is elevated and CT concerning for diverticulitis. 1028: CT abdomen pelvis confirms diverticulitis. Rocephin 1 g IV ordered. 1144: Patient's still tachycardic. He has still been unable to provide urine. Does have findings concerning for sepsis with elevated lactic acid, elevated white count, elevated heart rate and infection with diverticulitis. Lactic acid did decline slightly. Repeat normal saline 1 L bolus at will be given 250 mL aliquots to see if we can get improvement with his heart rate. He did receive Tylenol 1 g by mouth. Due to concerns about sepsis and monitoring urine output, we will apply Torres catheter to get urine. Patient will need admission. Patient has significant comorbidities and would benefit from ICU admission but no beds are available here currently. We will see if he meets criteria at [place]. 1213: I have made contact with [facility] in [place], [place] and exam and process of evaluating for ICU admission. Of note, patient's troponin is slightly elevated. This is likely related to demand ischemia from the tachycardia and sepsis. Patient's family would prefer 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 1229: I have discussed the case at length with Dr. Roy. He has graciously accepted the patient for admission to [facility] ICU. We will add vancomycin 1 g IV. 1300: Blood pressure currently 97/64 with heart rate of 108. O2 sat remains upper 90s on 3 L via nasal cannula. Patient did receive fentanyl 50 g IV for abdominal pain. Patient definitely would benefit from ICU admission. 1310: Patient consented for central line placement. This will be done via ultrasound guidance. Dr. Clark from cardiology here evaluating and agrees with transfer. 1352: Central line placed and chest x-ray done. 1436: Pending transfer via EMS as we have bed received an ambulance available now. Patient doing better. Blood pressure had declined that has stabilized in the low 100s To 120s. ECG Initial ECG Impression Date: Jan 05, 2019 Initial ECG Impression Time: 11:07 Initial ECG Rate: 121 Initial ECG Rhythm: S.Tach Comment Sinus tachycardia with left axis deviation. No evidence of ST elevation NM. Similar but a little faster than previous of . Interpreted by me. Diagnostic Imaging Diagonstic Imaging: CT Plain Films/CT/US/NM/MRI: c-spine, head Comments [facility] [place] NAME: JEANMARIE CABRERA [facility] REC#: [id number] PT STATUS: REG ER : 1930 PHYSICIAN: MARILEE PRIDE MD ADMIT DATE: 01/05/19/ER Draft Date of Exam:04/16/19 CT HEAD/CERVICAL SPINE WO CLINICAL INDICATION: Patient fell hitting head. EXAM: Head CT without IV contrast. Axial CT scan of the cervical spine with sagittal and coronal reformations. COMPARISON: None. FINDINGS: HEAD CT: There is no evidence of acute cerebral infarct, intracranial hemorrhage, or gross mass effect. The brain parenchymal volume appears appropriate for patient's age. There is multiple focal areas of low-attenuation white matter changes involving both cerebral hemispheres, likely representing chronic small vessel ischemic disease. Likely small chronic lacunar infarcts involving bilateral basal ganglia regions and anterior limb of the left internal capsule/crow radiata region. There is normal amaro-white matter distinction. There is no significant midline shift or herniation. There is no evidence of hydrocephalus. The basal cisterns are unremarkable. The skull, extracranial soft tissue, and orbits are unremarkable. There is minimal ethmoid sinus and bilateral maxillary sinus mucosal thickening. Temporal bones show no significant abnormality. CERVICAL SPINE: There is no acute cervical spine fracture or dislocation. There are cervical spine degenerative spurs, uncinate spurs, and facet arthropathy seen. There is at least mild central canal narrowing at the C6-C7 level. There is [id number]-[id number] bilateral neural foramen narrowing at the C6-C7 and left C5-C6 level. There is severe right C3-C4 neural foramen narrowing. There is a prominent periodontoid pannus noted. There is grossly 5 mm low-density nodule involving the right thyroid gland. The neck soft tissue structures show no other significant abnormality. Visualized upper lung ruano are clear. IMPRESSION: 1: There is no evidence of acute intracranial process. There is no skull fracture. 2: There is multilevel cervical spine degenerative disease with no acute cervical spine fracture or dislocation. 3: The brain parenchyma shows chronic small vessel ischemic disease and chronic lacunar infarcts. 4: There is a 5 mm right thyroid gland nodule. Nonemergent thyroid ultrasound would better evaluate. Dictated on workstation # [id number] Dict: 01/05/19 0847 Trans: 01/05/19 0905 [facility] [phone] Interpreted by: SUZIE PASCUAL MD Electronically signed by: Rika Imaging: CT Plain Films/CT/US/NM/MRI: abdomen, pelvis Comments [facility] [place] NAME: JEANMARIE CABRERA Rocio [facility] REC#: [id number] PT STATUS: REG ER : 1930 PHYSICIAN: MARILEE PRIDE MD ADMIT DATE: 01/05/19/ER Draft Date of Exam:01/05/19 CT ABDOMEN/PELVIS WO PROCEDURE: CT abdomen and pelvis without contrast. TECHNIQUE: Multiple contiguous axial images were obtained through the abdomen and pelvis without the use of intravenous contrast. Auto Exposure Controls were utilized during the CT exam to meet ALARA standards for radiation dose reduction. INDICATION: Lower abdominal pain, post fall. Recent hospital dismissal for gastrointestinal bleed. CORRELATION STUDY: CT abdomen/pelvis performed on 12/26/2018. FINDINGS: The heart size is within normal limits. Stent within the region of the proximal LAD. Calcification of the mitral valve. Minimal areas of atelectasis about the lung bases. No significant basilar infiltrate. Trace pleural effusions. The unenhanced liver, spleen, pancreas, and adrenal glands are unremarkable. Gallbladder present. Calcification in the eliezer hepatic region near the expected location of the cystic duct is unchanged. No appreciable ductal dilatation. Asymmetric areas of atrophic change about the kidneys. Low-density rounded foci within the renal parenchyma are present but incompletely characterized on this study; however, these favor probable cysts. Symmetric likely chronic perinephric stranding. No ureteric obstruction or hydronephrosis. The abdominal aorta has mild wall calcification, nonaneurysmal. There is extensive colonic diverticulosis present, most pronounced in the sigmoid colon. Rather pronounced sigmoid colon wall thickening. Additional longer segment pericolonic inflammatory changes are noted, particularly involving the sigmoid colon and large portion of the descending colon. These findings are adversely changed and developed since the prior study. Remainder of the colon with mild severity fecal retention. Small amount of pericolonic fluid without evidence for abscess formation. No significant free air. Urinary bladder unremarkable. Prostate gland within normal limits for the patient's age. Osseous structures demonstrate advanced degenerative changes to be present. Rather significant bilateral foraminal narrowing at the L5-S1, L3-L4, and L4-5 level. Also appears to be significant spinal canal stenosis at these areas. IMPRESSION: 1. Rather pronounced wall edema and inflammatory changes of the sigmoid colon and a large portion of the descending colon. There is extensive colonic diverticulosis through this area which could reflect underlying diverticulitis, progressed since the prior study; however, given the length of the apparent area of inflammation, this could be reflective of more nonspecific colitis. This could either be infectious, inflammatory, or ischemic. No suggestion for abscess or significant free intraperitoneal air at this time. 2. Calcification in the eliezer hepatic region appears unchanged. Given the otherwise unremarkable appearance, this could be outside the cystic duct. Dictated on workstation # [id number] Dict: 01/05/19 0944 Trans: 01/05/19 1010 [id number] Interpreted by: DONNA BERMUDEZ DO Electronically signed by: Diagonstic Imaging: Xray Plain Films/CT/US/NM/MRI: chest Comments [facility], [place] NAME: JEANMARIE CABRERA [facility] REC#: [id number] PT STATUS: REG ER : 1930 PHYSICIAN: MARILEE PRIDE MD ADMIT DATE: 01/05/19/ER Draft Date of Exam:01/05/19 CHEST 1 VIEW, AP/PA ONLY INDICATION: Abdominal pain, recent dismissal from the hospital for gastrointestinal bleed. TECHNIQUE: Single view chest 8:51 a.m. CORRELATION STUDY: 12/26/2018. FINDINGS: Limited depth of inspiration. This does result in crowding of the lung base likely atelectasis. The lungs are clear with no consolidating infiltrate. There is no significant effusion or pneumothorax. IMPRESSION: 1. Limited inspiration with resultant atelectasis in the lung bases. Cardiac enlargement without failure. Dictated on workstation # [id number] Dict: 01/05/19 0951 Trans: 01/05/19 0954 [facility] [id number] Interpreted by: DONNA BERMUDEZ DO Electronically signed by: Diagonstic Imaging: Xray Plain Films/CT/US/NM/MRI: chest Comments NAME: JEANMARIE CABRERA [facility] REC#: [id number] PT STATUS: REG ER : 1930 PHYSICIAN: MARILEE PRIDE MD ADMIT DATE: 01/05/19/ER Draft Date of Exam:01/05/19 CHEST 1 VIEW, AP/PA ONLY INDICATION: Central line placement. TIME OF EXAMINATION: 1:48 PM. COMPARISON: Correlation is made with the prior chest from earlier this same day. FINDINGS: The right IJ line has its tip overlying the SVC/right atrial junction. No pneumothorax is seen. The right diaphragm is mildly elevated. There is no failure. No effusion is seen. IMPRESSION: Right IJ line placement. No pneumothorax is detected. Dictated on workstation # [id number] Dict: 01/05/19 1354 Trans: 01/05/19 1356 [id number] Interpreted by: JESSE MCLAUGHLIN MD Electronically signed by: Departure Impression Primary Impression: Severe sepsis Additional Impressions: Diverticulitis large intestine w/o perforation or abscess w/o bleeding Chronic renal failure Qualified Codes: N18.9 - Chronic kidney disease, unspecified Troponin level elevated Disposition: XFER SHT-TRM HOSP Condition: Stable (ERASED) Transfer Time Spoke to Accepting Phy: 12:29 Transfer Time: 14:39 Transfer Facility: [place], [place], Dr. Roy accepting. Method of Transfer: EMS Departure-Patient Inst. Referrals: ZECHARIAH ADAMS MD (PCP/Family) Primary Care Physician MARILEE PRIDE MD Jan 05, 2019 09:40
--- NOTE | 2019-01-05 09:55 | Diagnostic Imaging Report ---
INDICATION: Abdominal pain, recent dismissal from the hospital for gastrointestinal bleed. TECHNIQUE: Single view chest 8:51 a.m. CORRELATION STUDY: 12/26/2018. FINDINGS: Limited depth of inspiration. This does result in crowding of the lung base likely atelectasis. The lungs are clear with no consolidating infiltrate. There is no significant effusion or pneumothorax. IMPRESSION: 1. Limited inspiration with resultant atelectasis in the lung bases. Cardiac enlargement without failure. Dictated by: Dictated on workstation # [id number]
--- NOTE | 2019-01-05 10:10 | NUR ---
PT TRYING TO GIVE US A URINE SAMPLE.
--- NOTE | 2019-01-05 10:10 | Diagnostic Imaging Report ---
PROCEDURE: CT abdomen and pelvis without contrast. TECHNIQUE: Multiple contiguous axial images were obtained through the abdomen and pelvis without the use of intravenous contrast. Auto Exposure Controls were utilized during the CT exam to meet ALARA standards for radiation dose reduction. INDICATION: Lower abdominal pain, post fall. Recent hospital dismissal for gastrointestinal bleed. CORRELATION STUDY: CT abdomen/pelvis performed on 12/26/2018. FINDINGS: The heart size is within normal limits. Stent within the region of the proximal LAD. Calcification of the mitral valve. Minimal areas of atelectasis about the lung bases. No significant basilar infiltrate. Trace pleural effusions. The unenhanced liver, spleen, pancreas, and adrenal glands are unremarkable. Gallbladder present. Calcification in the eliezer hepatic region near the expected location of the cystic duct is unchanged. No appreciable ductal dilatation. Asymmetric areas of atrophic change about the kidneys. Low-density rounded foci within the renal parenchyma are present but incompletely characterized on this study; however, these favor probable cysts. Symmetric likely chronic perinephric stranding. No ureteric obstruction or hydronephrosis. The abdominal aorta has mild wall calcification, nonaneurysmal. There is extensive colonic diverticulosis present, most pronounced in the sigmoid colon. Rather pronounced sigmoid colon wall thickening. Additional longer segment pericolonic inflammatory changes are noted, particularly involving the sigmoid colon and large portion of the descending colon. These findings are adversely changed and developed since the prior study. Remainder of the colon with mild severity fecal retention. Small amount of pericolonic fluid without evidence for abscess formation. No significant free air. Urinary bladder unremarkable. Prostate gland within normal limits for the patient's age. Osseous structures demonstrate advanced degenerative changes to be present. Rather significant bilateral foraminal narrowing at the L5-S1, L3-L4, and L4-5 level. Also appears to be significant spinal canal stenosis at these areas. IMPRESSION: 1. Rather pronounced wall edema and inflammatory changes of the sigmoid colon and a large portion of the descending colon. There is extensive colonic diverticulosis through this area which could reflect underlying diverticulitis, progressed since the prior study; however, given the length of the apparent area of inflammation, this could be reflective of more nonspecific colitis. This could either be infectious, inflammatory, or ischemic. No suggestion for abscess or significant free intraperitoneal air at this time. 2. Calcification in the eliezer hepatic region appears unchanged. Given the otherwise unremarkable appearance, this could be outside the cystic duct. Dictated by: Dictated on workstation # [id number]
[2019-01-05] MEDS ORDERED: cefTRIAXone FOR IV USE 1,000 MG in WATER (STERILE) FOR INJECTION 10 ML IV ONE (10:30)
--- NOTE | 2019-01-05 11:03 | NUR ---
TALKING WITH PT'S DAUGHTER ON THE PHONE.
[2019-01-05] MEDS ORDERED: ACETAMINOPHEN 500 MG TAB (TYLENOL) PO STA (11:20)
--- NOTE | 2019-01-05 11:22 | NUR ---
TEMP REMAINS 100 AND IS CHILLING. NOTIFIED.
--- NOTE | 2019-01-05 11:22 | NUR ---
ASSISTED PT TO BATHROOM.
--- NOTE | 2019-01-05 11:25 | NUR ---
REMAINS ON BEDSIDE COMMODE. DENIES NEEDS AT THIS TIME.
[2019-01-05] MEDS ORDERED: NS IV 1000 ML 1,000 ML IV ONE (11:55)
[2019-01-05 12:00] LABS: BILIRUBIN,URINE NEGATIVE (NEGATIVE); CLARITY,URINE SLIGHTLY CLOUDY; COLOR,URINE YELLOW; GLUCOSE, URINE (UA) 3+ (NEGATIVE); KETONES,URINE 1+ (NEGATIVE); LEUKOCYTE ESTERASE ,URINE NEGATIVE (NEGATIVE); NITRITE,URINE NEGATIVE (NEGATIVE); PH,URINE 5 (5-9); PROTEIN,URINE 2+ (NEGATIVE); UROBILINOGEN,URINE NORMAL (NORMAL)
[2019-01-05 12:28] LABS: AMORPHOUS SEDIMENT,UR FEW AMOR URATES /LPF; BACTERIA,URINE NEGATIVE /HPF; GRANULAR CASTS,URINE RARE /LPF; RENAL EPITHELIAL CELLS,URINE RARE /HPF
--- NOTE | 2019-01-05 12:37 | NUR ---
IN TALKING TO PT AT THIS TIME.
--- NOTE | 2019-01-05 12:38 | NUR ---
TALKED WITH BILLY IN RADIOLOGY ET NOTIFIED HER THAT WE NEEDED IMAGES CLOUDED TO GIRON.
[2019-01-05] MEDS ORDERED: VANCOMYCIN INJECTION 1,000 MG in NS (IVPB) 250 ML IV SCH (12:45)
--- NOTE | 2019-01-05 13:04 | NUR ---
BP 105/51 ET IN ROOM TALKING TO PT ABOUT A CENTRAL LINE. PT DIAPHORETIC AFTER TEMP HAS BROKE.
--- NOTE | 2019-01-05 13:08 | NUR ---
DR CLAUDIO HERE TO SEE PT. RONNIE SIGNED FOR CENTRAL LINE PLACEMENT AND TRANSFER.
--- NOTE | 2019-01-05 13:19 | Consultation-Cardiology ---
HPI-Cardiology Cardiology Consultation: Date of Consultation 01/05/19 Date of Admission Attending Physician Admitting Physician Krzysztof Garcia MD Consulting Physician Abner CLARK MD HPI: Time Seen by a Provider: 13:19 Chief Complaint: Abdominal discomfort This is a 88-year-old gentleman with history of end-stage renal disease was previously on dialysis but is not on dialysis anymore. He also has history of paroxysmal atrial fibrillation and was previously started on Eliquis and an flecainide, however flecainide was discontinued early on. Eliquis was discontinued recently due to significant GI bleeding and anemia. The patient also had a prolonged episode of chest pain and therefore coronary angiography was performed and a drug-eluting stent was placed in the proximal LAD in 2018 and he was started on Brilinta as well. However due to recent episode of bleeding Brilinta was changed to Plavix. He was not on aspirin or oral anticoagulation. Also in the last 2-3 weeks, the patient presented again with active respiratory failure due to influenza and received appropriate therapy and was transferred back to [facility]. During that admission the patient's troponin was borderline abnormal, this was likely type II myocardial infarction from severe respiratory failure with influenza and with end-stage renal disease. He presented again with abdominal sepsis and diverticulitis and was treated with IV antibiotics. The patient presents again with significant abdominal discomfort. Review of Systems-Cardiology Review of Systems Constitutional: As described under HPI; No As described under HPI, No no symptoms reported, No chills, No fever, No lightheadedness Eyes: No As described under HPI, No no symptoms reported, No blindness, No blurred vision, No contact lenses, No drainage, No decreased acuity, No foreign body sensation, No pain, No vision change Ears/Nose/Throat: No As described under HPI, No no symptoms reported, No chronic hearing loss, No ear discharge, No ear pain, No nasal drainage, No ulcerations Respiratory: No no symptoms reported; As described under HPI; No As described under HPI, No cough, No orthopnea, No shortness of breath, No SOB with excertion Cardiovascular: No no symptoms reported; As described under HPI; No As described under HPI, No chest pain, No edema, No irregular heart rate, No lightheadedness, No palpitations Gastrointestinal: No no symptoms reported, No As described under HPI, No abdomen distended; abdominal pain; No blood streaked bowels, No constipation, No diarrhea, No nausea, No vomiting, No stool coloration changes Genitourinary: No As described under HPI, No burning, No dysuria, No discharge , No frequency, No flank pain, No hematuria, No urgency Skin: No rash, No skin related problems, No ulcerations Psychiatric/Neurological: No anxiety, No depression, No seizure, No focal weakness, No syncope Hematologic: No bleeding abnormalities All Other Systems Reviewed Negative Unless Noted: Yes UEL-Esjtvp-Uvhxzp Hx Patient Social History Alcohol Use: Past History Recreational Drug Use: No Smoking Status: Former Smoker Type Used: Cigars, Cigarettes 2nd Hand Smoke Exposure: No Recent Foreign Travel: No Recent Infectious Disease Expo: No Immunizations Up To Date Tetanus Booster (TDap): Unknown Date of Pneumonia Vaccine: Jan 13, 2014 Date of Influenza Vaccine: Jul 06, 2018 Past Medical History PMH As described under Assessment. Family Medical History Family History: Diabetes mellitus 19 MOTHER G8 BROTHER FH: pancreatic cancer 19 FATHER Allergies and Home Medications Allergies Coded Allergies: No Known Drug Allergies (Verified , 11/18/18) Home Medications Acetaminophen 650 Mg Tablet.er, 1,300 MG PO DAILY PRN for PAIN-MILD, (Reported) Albuterol Sulfate 2.5 Mg/3 Ml Vial.neb, 2.5 MG NEB TID PRN for SHORTNESS OF BREATH, (Reported) Amoxicillin/Potassium Clav 1 Each Tablet, 1 EACH PO BID Prescribed by: JACKELINE CEE on 12/28/18 1023 Atorvastatin Calcium 10 Mg Tablet, 10 MG PO HS, (Reported) Bumetanide 1 Mg Tablet, 1 MG PO BID Prescribed by: JACKELINE CEE on 12/28/18 1012 Calcitriol 0.25 Mcg Capsule, 0.25 MCG PO MoWeFr, (Reported) Clopidogrel Bisulfate 75 Mg Tablet, 75 MG PO DAILY Prescribed by: JACKELINE CEE on 12/28/18 1012 Dulaglutide 0.75 Mg/0.5 Ml Pen.injctr, 0.75 MG SQ WEEK, (Reported) Insulin Detemir 100 Unit/1 Ml Insuln.pen, 20 UNIT SQ HS, (Reported) Insulin Detemir 100 Unit/1 Ml Insuln.pen, 25 UNIT SQ DAILY, (Reported) Metoprolol Succinate 25 Mg Tab.er.24h, 25 MG PO DAILY Prescribed by: JACKELINE CEE on 12/28/18 1012 Ondansetron 4 Mg Tab.rapdis, 4 MG PO Q6H PRN for NAUSEA/VOMITING-1ST LINE Prescribed by: JACKELINE CEE on 12/16/18 1156 Pantoprazole Sodium 40 Mg Tablet.dr, 40 MG PO DAILY, (Reported) Polyethylene Glycol 3350 17 Gm Powd.pack, 17 GM PO DAILY PRN for CONSTIPATION- 2ND LINE, (Reported) Prednisone 5 Mg Tablet, 5 MG PO BID, (Reported) Sucralfate 1 Gm Tablet, 1 GM PO ACHS, (Reported) Tamsulosin HCl 0.4 Mg Cap, 0.4 MG PO DAILY, (Reported) Patient Home Medication List Home Medication List Reviewed: Yes Physical Exam-Cardiology Physical Exam Vital Signs/I&O Capillary Refill : Less Than 3 Seconds Constitutional: apparent distress HEENT: PERRL; No normal ENT inspection, No TMs normal, No pharynx normal, No scleral icterus (R), No scleral icterus (L), No pale conjunctivae (R), No pale conjunctivae (L), No photophobia, No TM abnormal (R), No TM abnormal (L), No pharyngeal erythema, No tonsillar exudate, No other, No discharge, No EOMI; hearing is well preserved; No hard of hearing; oral hygience is good; No ulceration, No xanthelasmas are seen Neck: No non-tender, No full range of motion, No supple, No normal inspection, No carotid bruit, No limited range of motion, No lymphadenopathy (R), No lymphadenopathy (L), No tender lateral, No tender midline, No thyromegaly, No other; carotid pulses are 2 + bilaterally; No with good upstrokes Respiratory: No accessory muscle use, No respiratory distress, No chest tender , No chest expansion is symmetric; chest is bilaterally symmetric; No lungs clear to percussion; lungs clear to auscultation; No crackles, No rhonchi, No rales, No stridor, No wheezing, No pleural rub, No other Cardiovascular: regular rate-rhythm; No irregularly irregular, No extra beats, No parasternal heave is noted, No JVD, No edema, No bradycardia, No tachycardia , No point of maximal impulse, No cardiac thrills are palpable; S1 and S2; No gallop/S3, No gallop/S4, No diastolic murmur, No systolic murmur, No friction rub, No click, No other Gastrointestinal: No tender, No soft, No round, No distended, No pulsatile mass , No organomegaly, No guarding, No rebound; tenderness; No hernia, No mass, No audible bowel sounds, No abnormal bowel sounds, No abdominal bruits, No spleenomegaly, No other Rectal: deferred Extremities: No normal range of motion, No non-tender, No normal inspection, No pedal edema, No calf tenderness, No normal capillary refill, No pelvis stable , No calf tenderness, No inflammation, No pedal edema, No slow capillary refill , No swelling, No other, No abrasion, No clubbing, No cyanosis, No ecchymosis, No laceration, No no lower extremity edema bilateral, No significant edema, No tenderness, No wound Neurologic/Psychiatric: no motor/sensory deficits, alert, normal mood/affect, oriented x 3, power is 5/5 both on sides Skin: warm/dry, ecchymosis (multiple ecchymotic lesions to the arms.) Data Review Labs Laboratory Tests 01/05/19 11:53: Urine Color YELLOW, Urine Clarity SLIGHTLY CLOUDY, Urine pH 5, Urine Specific [place] 1.020, Urine Protein 2+H, Urine Glucose (UA) 3+H, Urine Ketones 1+H, Urine Nitrite NEGATIVE, Urine Bilirubin NEGATIVE, Urine Urobilinogen NORMAL, Urine Leukocyte Esterase NEGATIVE, Urine RBC (Auto) NEGATIVE, Urine RBC NONE, Urine WBC NONE, Urine Renal Epithelial Cells RARE, Urine Crystals PRESENTH, Urine Amorphous Sediment FEW HAYLEE URATESH, Urine Bacteria NEGATIVE, Urine Casts PRESENT, Urine Granular Casts RARE, Urine Mucus SMALLH, Urine Culture Indicated NO 01/05/19 13:58: Glucometer 364H ECG Impression ECG Initial ECG Rhythm: Normal Sinus, PVC A/P-Cardiology Assessment/Admission Diagnosis Severe sepsis, possible septic shock, End-stage renal disease, History of paroxysmal atrial fibrillation, CAD, drug-eluting stent to LAD 11/19/2018, Borderline positive troponin Plan Severe sepsis, possible septic shock, IV fluids, broad-spectrum antibiotics, likely source is diverticulitis. End-stage renal disease, with hypotension, they could be worsening of kidney function. History of paroxysmal atrial fibrillation, oral anticoagulation was held due to anemia and GI bleeding recently. Currently in sinus rhythm with PVCs. CAD, drug-eluting stent to LAD 11/19/2018, continue Plavix. Atorvastatin and beta ernesto. Borderline positive troponin, likely due to severe systemic illness and end- stage renal disease. However a non-STEMI cannot be ruled out. Critical condition, agree with the ER attending for transfer since he would likely require nephrology help which is not available in our hospital at this point in time. Thank you for your consultation. Please call me if you have any questions. Mireille Clark MD, FACP, FACC, FSCAI, FHRS, CCDS Interventional Cardiology Cardiac Electrophysiology Vascular Medicine and Endovascular Interventions Abner CLARK MD Jan 05, 2019 13:19
--- NOTE | 2019-01-05 13:20 | NUR ---
IN ROOM FOR CENTRAL LINE PLACEMENT.
--- NOTE | 2019-01-05 13:57 | Diagnostic Imaging Report ---
INDICATION: Central line placement. TIME OF EXAMINATION: 1:48 PM. COMPARISON: Correlation is made with the prior chest from earlier this same day. FINDINGS: The right IJ line has its tip overlying the SVC/right atrial junction. No pneumothorax is seen. The right diaphragm is mildly elevated. There is no failure. No effusion is seen. IMPRESSION: Right IJ line placement. No pneumothorax is detected. Dictated by: Dictated on workstation # [id number]
[2019-01-05] MEDS ORDERED: inSUlin (REGULAR) HUMAN 1 UNIT/0.01 ML (CHARGE PER UNIT) SC STA (14:03)
[2019-01-05 14:39] VITALS: BP 135/79
--- NOTE | 2019-01-05 14:39 | NUR ---
EMS NOTIFEID PT WOULD NEED A BLOOD SUGAR CHECKED IN ROUTE.
== END 2019-01-05 14:39 | disposition short-term general hospital (02) ==
LOC: EDUNIT# 07:35 → ER 07:36
DX: A41.9 Sepsis, unspecified organism (principal); R65.20 Severe sepsis without septic shock; K57.32 Diverticulitis of large intestine without perforation or abscess without bleeding; E11.22 Type 2 diabetes mellitus with diabetic chronic kidney disease; I12.0 Hypertensive chronic kidney disease with stage 5 chronic kidney disease or end stage renal disease; N18.6 End stage renal disease; R79.89 Other specified abnormal findings of blood chemistry; I25.10 Atherosclerotic heart disease of native coronary artery without angina pectoris; E11.43 Type 2 diabetes mellitus with diabetic autonomic (poly)neuropathy; K31.84 Gastroparesis; Z87.19 Personal history of other diseases of the digestive system; Z99.2 Dependence on renal dialysis; Z80.0 Family history of malignant neoplasm of digestive organs; Z87.448 Personal history of other diseases of urinary system; Z79.4 Long term (current) use of insulin; Z79.52 Long term (current) use of systemic steroids; Z79.02 Long term (current) use of antithrombotics/antiplatelets; Z87.891 Personal history of nicotine dependence; Z95.5 Presence of coronary angioplasty implant and graft
CPT/HCPCS: 36415; 51702; 70450; 71045; 72125; 74176; 80053; 81000; 82962; 83605; 83880; 84484; 85007; 85027; 85610; 85730; 87040; 87088; 93005

== ENCOUNTER 2019-02-21 11:36 | Emergency (ER) | payer MEDICARE ==
[~2019-02-21] VITALS: Ht 170.2 cm; Wt 93.9 kg
--- OUTSIDE RECORDS SUMMARY | 2019-02-21 11:46 | XMS REPORT ---
Author Author IGNACIA TIMMONS [facility] Address [address] [place] [address] Care Team Providers Care Tobacco Sorter Name Role Phone IGNACIA TIMMONS Unavailable PROBLEMS Type Condition ICD9-CM Code [id number] Code Onset Dates Condition Status SNOMED Code Problem End stage renal disease N18.6 Active 56400544 Problem 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 Active 543702430 Problem Essential hypertension I10 Active 46724734 Problem 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 Active 72658490 Problem Benign prostatic hyperplasia with lower urinary tract symptoms N40.1 Active 74653634220311 Problem Primary insomnia F51.01 Active 1442225 Problem Erectile dysfunction due to diseases classified elsewhere N52.1 Active 341943005 Problem Gait disturbance R26.9 Active 50138800 Problem Type 2 diabetes mellitus with diabetic polyneuropathy, unspecified whether long-term insulin use E11.42 Active 32695375 Problem Gastroesophageal reflux disease without esophagitis K21.9 Active 835950682 Problem Type 2 diabetes mellitus without complications E11.9 Active 932348446 Problem Insomnia, unspecified type G47.00 Active 035208115 Problem Type 2 diabetes mellitus with diabetic chronic kidney disease, unspecified CKD stage, unspecified whether ocean transportation intermediary insulin use E11.22 Active 61016974 Problem Rheumatoid arthritis, involving unspecified site, unspecified rheumatoid factor presence M06.9 Active 54475923 Problem Type 2 diabetes mellitus with unspecified complications E11.8 Active 64315683 Problem 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, with unspecified presence of clinical manifestation I70.203 Active 623705646002038 Problem Dialysis patient Z99.2 Active 815865864 Problem Type 2 diabetes mellitus with hyperglycemia, without long-term current use of insulin E11.65 Active 21930907 Problem 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 difficile diarrhea A04.72 ; H/O ileostomy Z98.890 ; Dizziness R42 ; Weakness R53.1 ; Nausea R11.0 ; Severe episode of recurrent major depressive disorder, with psychotic features F33.3 ; Insomnia, unspecified type G47.00 ; End stage renal disease N18.6 ; care home current use of insulin Z79.4 ; Type 2 diabetes mellitus with unspecified complications E11.8 and End of life care Z51.5 [facility] [address] [id number] January, [place] [id number] [place] [phone] January, [place] [address] [address] January, [facility] [address] [id number] January, Type 2 diabetes mellitus with hyperglycemia, without long-term current use of insulin E11.65 ; End stage renal disease N18.6 ; Rheumatoid arthritis, involving unspecified site, unspecified rheumatoid factor presence M06.9 ; Primary insomnia F51.01 ; Paroxysmal atrial fibrillation I48.0 and Hyponatremia E87.1 [place] [address] [place] [address] Dec, End stage renal disease N18.6 and Type 2 diabetes mellitus with hyperglycemia, without long-term current use of insulin E11.65 [place] [id number] [place] [phone] Dec, [place] [id number] [place] [address] Dec, [place] [id number] [place] [address] Dec, [place] [id number] [place] [address] Dec, Type 2 diabetes mellitus without complications E11.9 ; care home current use of insulin Z79.4 and Hyperglycemia R73.9 [place] [id number] [place] [address] Nov, Gastroesophageal reflux disease without esophagitis K21.9 [facility] [address] [address] Nov, Pain of right lower extremity M79.604 [place] [address] [address] Nov, Shortness of breath R06.02 [facility] [address] [address] Oct, Multiple skin nodules R22.9 [place] [address] [address] Oct, Cough R05 ; Pneumonia of both lower lobes due to infectious organism J18.1 and Type 2 diabetes mellitus with hyperglycemia, without long-term current use of insulin E11.65 [place] [id number] [place] [address] Oct, [place] [address] [address] Sep, Abscess L02.91 [place] [address] [address] Sep, Bronchitis J40 ; Abscess L02.91 and Arthralgia, unspecified joint M25.50 [place] [address] [address] Aug, Type 2 diabetes mellitus with hyperglycemia, without long-term current use of insulin E11.65 [place] [address] [address] Aug, [facility] [address] [place] [address] Aug, Type 2 diabetes mellitus with hyperglycemia, without long-term current use of insulin E11.65 ; Seborrheic keratoses L82.1 ; Other viral warts B07.8 and End stage renal disease N18.6 [place] [id number] [place] [address] Aug, Type 2 diabetes mellitus with hyperglycemia, without long-term current use of insulin E11.65 [place] [id number] [place] [address] Jul, Type 2 diabetes mellitus with hyperglycemia, without long-term current use of insulin E11.65 [place] [id number] [place] [address] Jul, Type 2 diabetes mellitus with hyperglycemia, without long-term current use of insulin E11.65 ; Erectile dysfunction due to diseases classified elsewhere N52.1 and History of abscess of skin and subcutaneous tissue Z87.2 [facility] [id number] [place] [address] Jul, [place] [id number] [place] [address] Jul, [place] [address] [place] [address] Jun, Type 2 diabetes mellitus with hyperglycemia, without long-term current use of insulin E11.65 [place] [id number] [place] [address] Jun, [place] [id number] [place] [address] Jun, Type 2 diabetes mellitus with hyperglycemia, without long-term current use of insulin E11.65 [facility] [address] [place] [address] Jun, Dysuria R30.0 and Acute cystitis without hematuria N30.00 [facility] [address] [address] Jun, Type 2 diabetes mellitus with hyperglycemia, without long-term current use of insulin E11.65 [place] [address] [address] May, [facility] [address] [address] May, Bacterial skin infection of upper extremity L08.9 [place] [address] [address] May, Type 2 diabetes mellitus with hyperglycemia, without long-term current use of insulin E11.65 [place] [address] [address] Apr, End stage renal disease N18.6 [place] [address] [place] [address] Apr, [place] [address] [place] [address] Apr, [place] [address] [place] [address] Apr, Type 2 diabetes mellitus with hyperglycemia, without long-term current use of insulin E11.65 [place] [address] [address] Apr, [place] [address] [address] Apr, [place] [address] [place] [address] Apr, [facility] [address] [place] [id number] Apr, Type 2 diabetes mellitus with hyperglycemia, without long-term current use of insulin E11.65 ; End stage renal disease N18.6 ; Rheumatoid arthritis, involving unspecified site, unspecified rheumatoid factor presence M06.9 ; Age- related macular degeneration H35.30 ; 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 ; Gait disturbance R26.9 ; Localized edema R60.0 ; Primary insomnia F51.01 ; Essential hypertension I10 ; Frequency of micturition R35.0 and Benign prostatic hyperplasia with lower urinary tract symptoms N40.1 [place] [address] [place] [address] Apr, [place] [id number] [place] [phone] Mar, [place] [id number] [place] [address] Mar, [facility] [address] [id number] Mar, Type 2 diabetes mellitus with hyperglycemia, without long-term current use of insulin E11.65 ; End stage renal disease N18.6 and Shortness of breath R06.02 [place] [id number] [place] [address] Mar, 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 [place] [id number] [place] [address] Mar, [place] [id number] [place] [address] Mar, [place] [address] [place] [address] Mar, [place] [address] [place] [phone] Feb, [facility] [address] [id number] Feb, Encounter for examination for admission to [facility] Z02.2 ; Type 2 diabetes mellitus with hyperglycemia, without long-term current use of insulin E11.65 ; 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 ; Osteopenia of multiple sites M85.89 ; End stage renal disease N18.6 ; Dialysis patient Z99.2 and Rheumatoid arthritis, involving unspecified site, unspecified rheumatoid factor presence M06.9 [facility] [address] [address] Feb, [facility] [address] [place] [address] May, Dental examination Z01.20 [facility] [address] [place] [address] May, [facility] [address] [place] [address] 08 May, 2016 Dental examination Z01.20 [facility] [address] [place] [address] May, [facility] [address] [place] [address] Apr, Dental examination Z01.20 [facility] [address] [place] [address] Dec, Dental examination Z01.20 [facility] [address] [place] [address] Oct, Dental examination Z01.20 [facility] [address] [place] [address] Oct, Dental examination Z01.20 [facility] [address] [place] [address] Sep, Dental examination Z01.20 [facility] [address] [place] [address] Aug, Dental examination Z01.20 [facility] [address] [place] [address] 16 Jul, 2015 Dental examination Z01.20 [facility] [address] [place] [address] Jul, Dental examination Z01.20 [facility] [address] [place] [address] Jun, Dental examination Z01.20 [facility] [id number] [address] 14 Dec, 2014 [facility] [address] [address] Dec, [facility] [address] [facility] [address] [id number] [address] Mar, [facility] [address] [facility] [address] [id number] [address] Mar, [facility] [address] [facility] [address] [id number] [address] Mar, [facility] [address] [facility] [address] [id number] [address] Feb, [facility] [address] [facility] [address] [id number] [address] January, [facility] [address] [facility] [address] [id number] [address] January, IMMUNIZATIONS No Known Immunizations SOCIAL HISTORY Never Assessed REASON FOR VISIT [facility] follow up Pt in for follow up from hospital discharge after heart cath had a stent placed NOAM Macdonald PLAN OF CARE Activity Details Follow Up prn Reason: VITAL SIGNS Height 67 in 2018-11-25 Weight 220 lbs 2018-11-25 Heart Rate 112 bpm 2018-11-25 Respiratory Rate 28 2018-11-25 Oximetry ambulating w/ oxygen:90 % 2018-11-25 BMI 34.45 kg/m2 2018-11-25 Blood pressure systolic 168 mmHg 2018-11-25 Blood pressure diastolic 82 mmHg 2018-11-25 MEDICATIONS Medication Instructions Dosage Frequency Start Date End Date Duration Status Aspirin 81 MG Orally Once a day 1 tablet 24h 30 day(s) Active Brilinta 90 MG Orally Twice a day 1 tablet 12h 30 day(s) Active Tamsulosin HCl 0.4 MG Orally Once a day 1 capsule 24h 90 Active Levemir FlexTouch 100 UNIT/ML Subcutaneous 2 times a day 20 units 12h Aug, 30 days Active Tylenol 325 MG Orally every 4 hrs 2 tablets as needed 4h Active Atorvastatin Calcium 10 MG Orally Once a day 1 tablet 24h 30 day(s) Active ReliOn Blood Glucose Test - subcutaneously fasting and 2 hours after meal as directed Jun, 50 days Active Anusol-HC 25 MG Rectal every 4 hrs 1 suppository as needed 4h Active Trulicity 0.75 MG/0.5ML Subcutaneous once weekly 0.5ml Aug, 4 weeks Active Tylenol 8 Hour Arthritis Pain 650 MG Orally every 8 hrs 2 tablets as needed 8h 07 Sep, 2018 Active Albuterol Sulfate (2.5 MG/3ML) 0.083% Inhalation Three times a day 3 ml as needed 8h 13 Oct, 2018 Active Toprol XL 50 mg Orally Once a day 1 tablet 24h 90 Active Bumetanide 2 MG Orally 2 times a day 1 tablet 12h 90 days Active Pantoprazole Sodium 40 MG Orally Once a day 1 tablet 24h 30 day(s) Active Insulin Detemir 100 UNIT/ML Subcutaneous 2 times a day 15 units 12h Jun, Active Eliquis 2.5 MG Orally 2 times a day 1 tablet 12h 90 days Active GlipiZIDE 5 MG Orally 2 times a day 1 tablet 12h Aug, 30 day(s) Active Melatonin 3 MG Orally Once a day 2 tablets at bedtime 24h 90 days Active PredniSONE 5 mg Orally twice a day 1 tablet 12h Active Viagra 50 MG Orally Once a day 1 tablet as needed 1 hour prior to intercourse 24h 14 Jul, 2018 30 day(s) Active Metoprolol Succinate ER 50 MG Orally Once a day 1 tablet 24h Active Clindamycin HCl 300 MG Orally every 8 hrs 1 capsules 8h 21 Oct, 2018 10 day(s) Not-Taking Bisacodyl 10 MG Rectal Once a day 1 suppository as needed 24h Active Sucralfate 1 GM Orally Twice a day 1 tablet on an empty stomach 12h 30 day(s) Active RESULTS Name Result Date Reference Range Xray : Chest 2 View (IN HOUSE) 2018-11-25 PROCEDURES Procedure Date Ordered Result Body Site X-RAY EXAM CHEST 2 VIEWS November 25, 2018 INSTRUCTIONS MEDICATIONS ADMINISTERED No Known Medications MEDICAL (GENERAL) HISTORY Type Description Date Medical History Mild High Blood Pressure Medical History Diabetes Type 2 Medical History Arthritis Medical History 2018 Toxic [place] Surgical History umbilical hernia Surgical History heart cath stent placed 11/2018 Surgical History illeostomy 01/2019 Hospitalization History Renal failure 02/2018 Hospitalization History Chest pain-[facility] 03/31/18 Hospitalization History Lower GI bleed and anemia requiring transfusions 12/2018 Hospitalization History Vin Colon, Sepsis, Illeostomy, C diff 01/2019
--- OUTSIDE RECORDS SUMMARY | 2019-02-21 11:47 | XMS REPORT ---
Author Author Migration, Doctor Organization [facility] Address Unknown Phone Unavailable Care Team Providers Care Ditch Tender Name Role Phone Migration, Doctor Unavailable Unavailable PROBLEMS Type Condition ICD9-CM Code [id number] Code Onset Dates Condition Status SNOMED Code Problem Type 2 diabetes mellitus with hyperglycemia, without long-term current use of insulin E11.65 Active 11457347 Problem 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 Active 718186052 Problem Rheumatoid arthritis, involving unspecified site, unspecified rheumatoid factor presence M06.9 Active 31263610 Problem Dialysis patient Z99.2 Active 963257556 Problem 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 Active 64139415 Problem End stage renal disease N18.6 Active 22952269 Problem Benign prostatic hyperplasia with lower urinary tract symptoms N40.1 Active 03157678769983 Problem Gait disturbance R26.9 Active 95212594 Problem Erectile dysfunction due to diseases classified elsewhere N52.1 Active 576779666 Problem Atherosclerosis of [place] artery of both lower extremities, with unspecified presence of clinical manifestation I70.203 Active 529255126881400 Problem Type 2 diabetes mellitus with diabetic chronic kidney disease, unspecified CKD stage, unspecified whether long-term insulin use E11.22 Active 54691106 Problem Paroxysmal atrial fibrillation I48.0 Active 102375369 Problem Essential hypertension I10 Active 68786790 Problem Morbid (severe) obesity due to excess calories E66.01 Active 134668894 Problem Primary insomnia F51.01 Active 8889506 Problem Type 2 diabetes mellitus with diabetic polyneuropathy, unspecified whether long-term insulin use E11.42 Active 46591886 Problem Gastroesophageal reflux disease without esophagitis K21.9 Active 977343231 Problem [employer] current use of insulin Z79.4 Active 250657926 Problem Type 2 diabetes mellitus without complications E11.9 Active 822054070 ALLERGIES No Information ENCOUNTERS Encounter Location Date Diagnosis [facility] [address] [facility] [id number] [address] January, Via [facility] [address] [place] [id number] January, [place] [address], [place] [address] January, [place] [address] [place] [id number] [place] [address] January, Via [employer] [facility] [address] [place] [id number] January, Type 2 diabetes mellitus with hyperglycemia, without long-term current use of insulin E11.65 ; End stage renal disease N18.6 ; Rheumatoid arthritis, involving unspecified site, unspecified rheumatoid factor presence M06.9 ; Primary insomnia F51.01 ; Paroxysmal atrial fibrillation I48.0 and Hyponatremia E87.1 [place] [address] [place] [id number] [place] [address] Dec, End stage renal disease N18.6 and Type 2 diabetes mellitus with hyperglycemia, without long-term current use of insulin E11.65 [place] [address] [place] [id number] [place] [address] Dec, [place] [address] [place] [id number] [place] [address] Dec, [place] [address] [place] [id number] [place] [address] Dec, [place] [address] [place] [id number] [place] [address] Dec, Type 2 diabetes mellitus without complications E11.9 ; [employer] current use of insulin Z79.4 and Hyperglycemia R73.9 [place] [address] [address] Nov, Gastroesophageal reflux disease without esophagitis K21.9 [facility] [address] [place] [id number] [place] [address] Nov, Pain of right lower extremity M79.604 [place] [address] [place] [id number] [place] [address] Nov, Shortness of breath R06.02 [facility] [id number] [place] [address] 21 Oct, 2018 Multiple skin nodules R22.9 [place] [address] [place] [id number] [place] [address] 13 Oct, 2018 Cough R05 ; Pneumonia of both lower lobes due to infectious organism J18.1 and Type 2 diabetes mellitus with hyperglycemia, without long-term current use of insulin E11.65 [place] [address] [address] Oct, [place] [address] [address] Sep, Abscess L02.91 [place] [address] [address] Sep, Bronchitis J40 ; Abscess L02.91 and Arthralgia, unspecified joint M25.50 [place] [address] [place] [id number] [place] [address] Aug, Type 2 diabetes mellitus with hyperglycemia, without long-term current use of insulin E11.65 [place] [address] [place] [id number] [place] [address] Aug, [place] [address] [place] [id number] [place] [address] Aug, Type 2 diabetes mellitus with hyperglycemia, without long-term current use of insulin E11.65 ; Seborrheic keratoses L82.1 ; Other viral warts B07.8 and End stage renal disease N18.6 [place] [address] [place] [id number] [place] [address] Aug, Type 2 diabetes mellitus with hyperglycemia, without long-term current use of insulin E11.65 [place] [address] [place] [id number] [place] [address] Jul, Type 2 diabetes mellitus with hyperglycemia, without long-term current use of insulin E11.65 [place] [address], [place] [address] 14 Jul, 2018 Type 2 diabetes mellitus with hyperglycemia, without long-term current use of insulin E11.65 ; Erectile dysfunction due to diseases classified elsewhere N52.1 and History of abscess of skin and subcutaneous tissue Z87.2 [place] [address] [place] [id number] [place] [address] 08 Jul, 2018 [place] [address] [place] [id number] [place] [address] Jul, [place] [address] [place] [id number] [place] [address] Jun, Type 2 diabetes mellitus with hyperglycemia, without long-term current use of insulin E11.65 [place] [address] [place] [id number] [place] [address] Jun, [place] [address] [place] [id number] [place] [address] Jun, Type 2 diabetes mellitus with hyperglycemia, without long-term current use of insulin E11.65 [facility] [place] [address] [place] [address] Jun, Dysuria R30.0 and Acute cystitis without hematuria N30.00 [place] [address] [place] [id number] [place] [address] Jun, Type 2 diabetes mellitus with hyperglycemia, without long-term current use of insulin E11.65 [place] [address] [place] [id number] [place] [address] May, [facility] [address] [place] [id number] [place] [address] May, Bacterial skin infection of upper extremity L08.9 [place] [address] [place] [id number] [place] [address] May, Type 2 diabetes mellitus with hyperglycemia, without long-term current use of insulin E11.65 [place] [address] [place] [id number] [address] 30 Apr, 2018 End stage renal disease N18.6 [facility] [address], [place] [address] Apr, [facility] [address], [place] [address] Apr, [facility] [address], [place] [address] Apr, Type 2 diabetes mellitus with hyperglycemia, without long-term current use of insulin E11.65 [facility] [address], [place] [address] Apr, [facility] [address], [place] [address] Apr, [facility] [address], [place] [address] Apr, Via [employer] [address] [place] [id number] Apr, Type 2 diabetes mellitus with hyperglycemia, [...] hyperplasia with lower urinary tract symptoms N40.1 [facility] [address] [place] [id number] [address] Apr, [facility] [address] [place] [id number] [address] Mar, [facility] [address] [place] [id number] [address] Mar, Via [employer] [address] [place] [id number] Mar, Type 2 diabetes mellitus with hyperglycemia, without long-term current use of insulin E11.65 ; End stage renal disease N18.6 and Shortness of breath R06.02 [facility] [address], [place] [address] Mar, 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 [facility] [address], [place] [address] Mar, [place] [address] [place] [id number] [place] [address] Mar, [facility] [address] [place] [id number] [place] [address] Mar, [place] [address] [place] [id number] [place] [address] Feb, Via [employer] [place] [facility] [address] [place] [id number] Feb, En[facility] [place] [facility] Z02.2 ; Type 2 diabetes mellitus with hyperglycemia, without long-term current use of insulin E11.65 ; 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 ; Osteopenia of multiple sites M85.89 ; End stage renal disease N18.6 ; Dialysis patient Z99.2 and Rheumatoid arthritis, involving unspecified site, unspecified rheumatoid factor presence M06.9 [address], [place] [address] Feb, [facility] [address] [place] [address] May, Dental examination Z01.20 [facility] [address] [place] [address] May, [facility] [address] [place] [address] May, Dental examination Z01.20 [facility] [address] [place] [address] May, [facility] [address] [place] [address] Apr, Dental examination Z01.20 [facility] [address] [place] [address] Dec, Dental examination Z01.20 [facility] [address] [place] [address] Oct, Dental examination Z01.20 [facility] [address] [place] [address] Oct, Dental examination Z01.20 [facility] [address] [place] [address] Sep, Dental examination Z01.20 [facility] [address] [place] [address] Aug, Dental examination Z01.20 [facility] [address] [place] [address] Jul, Dental examination Z01.20 [facility] [address] [place] [address] Jul, Dental examination Z01.20 [facility] [address] [place] [address] Jun, Dental examination Z01.20 [facility] [address] [place] [id number] [address] Dec, [facility] [address] [facility] [id number] [place] [address] Dec, [facility] [address] [facility] [id number], [place] [address] Mar, [facility] [address] [facility] [id number], [place] [address] Mar, [facility] [address] [facility] [id number], [place] [address] Mar, [facility] [address] [facility] [id number], [place] [address] Feb, [facility] [address] [facility] [id number], [place] [address] January, [facility] [id number] [place] [address] [place] [address] January, IMMUNIZATIONS No Known Immunizations SOCIAL HISTORY Never Assessed REASON FOR VISIT EMR-[facility] [place] PLAN OF CARE VITAL SIGNS MEDICATIONS Unknown [...]
--- NOTE | 2019-02-21 11:53 | NUR ---
LAB CALLED TO [facility] BLOOD UNABLE TO DRAW FROM IV
--- NOTE | 2019-02-21 12:04 | ED Chest Pain ---
General Chief Complaint: Chest Pain Stated Complaint: AMS Nursing Triage Note: CHEST PAIN STARTING LAST NOC Nursing Sepsis Screen: No Definite Risk Source: patient, EMS Exam Limitations: no limitations History of Present Illness Date Seen by Provider: Feb 21, 2019 Time Seen by Provider: 11:42 Initial Comments 88-year-old male who was brought to the emergency room by [facility] for complaints of chest pain and pressure that started last night. He resides at [facility] and reports that he told the nurse this morning when he woke up about his chest pain and she called EMS. He reports that he did not want to come to the hospital at that time but nursing staff called anyways. Reports mild shortness of breath. Rates pain 7 out of 10 on arrival. 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 Denies any abdominal pain at this time. Timing/Duration: 1 day Severity/Quality: pressure Location: substernal Radiation: no radiation Associated Symptoms: shortness of breath Allergies and Home Medications Allergies Coded Allergies: No Known Drug Allergies (Verified , 11/18/18) Home Medications Acetaminophen 650 Mg Tablet.er, 1,300 MG PO DAILY PRN for PAIN-MILD, (Reported) Albuterol Sulfate 2.5 Mg/3 Ml Vial.neb, 2.5 MG NEB TID PRN for SHORTNESS OF BREATH, (Reported) Amoxicillin/Potassium Clav 1 Each Tablet, 1 EACH PO BID Prescribed by: JACKELINE CEE on 12/28/18 1023 Atorvastatin Calcium 10 Mg Tablet, 10 MG PO HS, (Reported) Bumetanide 1 Mg Tablet, 1 MG PO BID Prescribed by: JACKELINE CEE on 12/28/18 1012 Calcitriol 0.25 Mcg Capsule, 0.25 MCG PO MoWeFr, (Reported) Clopidogrel Bisulfate 75 Mg Tablet, 75 MG PO DAILY Prescribed by: JACKELINE CEE on 12/28/18 1012 Dulaglutide 0.75 Mg/0.5 Ml Pen.injctr, 0.75 MG SQ WEEK, (Reported) Insulin Detemir 100 Unit/1 Ml Insuln.pen, 20 UNIT SQ HS, (Reported) Insulin Detemir 100 Unit/1 Ml Insuln.pen, 25 UNIT SQ DAILY, (Reported) Metoprolol Succinate 25 Mg Tab.er.24h, 25 MG PO DAILY Prescribed by: JACKELINE CEE on 12/28/18 1012 Ondansetron 4 Mg Tab.rapdis, 4 MG PO Q6H PRN for NAUSEA/VOMITING-1ST LINE Prescribed by: JACKELINE CEE on 12/16/18 1156 Pantoprazole Sodium 40 Mg Tablet.dr, 40 MG PO DAILY, (Reported) Polyethylene Glycol 3350 17 Gm Powd.pack, 17 GM PO DAILY PRN for CONSTIPATION- 2ND LINE, (Reported) Prednisone 5 Mg Tablet, 5 MG PO BID, (Reported) Sucralfate 1 Gm Tablet, 1 GM PO ACHS, (Reported) Tamsulosin HCl 0.4 Mg Cap, 0.4 MG PO DAILY, (Reported) Patient Home Medication List Home Medication List Reviewed: Yes Review of Systems Review of Systems Constitutional: see HPI; No chills, No fever Respiratory: See HPI, Shortness of Air Cardiovascular: See HPI, Chest Pain All Other Systems Reviewed Negative Unless Noted: Yes Past Gmuhjsj-Tzasuu-Dhjbiy Hx Past Med/Social Hx: Reviewed Nursing Past Med/Soc Hx Patient Social History Alcohol Use: Denies Use Alcohol Beverage of Choice: Beer, Wine Recreational Drug Use: No Smoking Status: Former Smoker Type Used: Cigars, Cigarettes Former Smoker, Quit: Feb 20, 1958 2nd Hand Smoke Exposure: No Recent Foreign Travel: No Contact w/Someone Who Travel: No Recent Infectious Disease Expo: No Recent Hopitalizations: No Immunizations Up To Date Tetanus Booster (TDap): Unknown PED Vaccines UTD: No Date of Pneumonia Vaccine: Jan 13, 2014 Date of Influenza Vaccine: Jul 06, 2018 Seasonal Allergies Seasonal Allergies: No Past Medical History Surgeries: Yes Coronary Stent, Orthopedic Respiratory: No Currently Using CPAP: No Currently Using BIPAP: No Cardiac: Yes Coronary Artery Disease, Hypertension Neurological: No Genitourinary: Yes Benign Prostatic Hyperpl, Kidney Infection, Renal Failure Gastrointestinal: Yes Abdominal Hernia, Gastroesophageal Reflux, Gastrointestinal Bleed, Diverticulosis Musculoskeletal: Yes Arthritis, Rheumatoid Arthritis Endocrine: Yes Diabetes, Non-Insulin dep HEENT: Yes Macular Degeneration Cancer: No Psychosocial: No Integumentary: No Psoriasis Blood Disorders: No Adverse Reaction/Blood Tranf: No Family Medical History Reviewed Nursing Family Hx Diabetes mellitus 19 MOTHER G8 BROTHER FH: pancreatic cancer 19 FATHER Diabetes Physical Exam Vital Signs Vital Signs - First Documented 02/21/19 11:38 Temp 97.2 Pulse 109 Resp 18 B/P (MAP) 140/84 (102) Pulse Ox 95 O2 Delivery Room Air Capillary Refill : Less Than 3 Seconds Height, Weight, BMI Height: 5'7.00" Weight: 207lbs. 10.0oz. 93.045546cl; 31.4 BMI Method:Stated General Appearance: No Apparent Distress, WD/WN Respiratory: Chest Non Tender, Lungs Clear, Normal Breath Sounds, No Accessory Muscle Use, No Respiratory Distress Cardiovascular: Regular Rate, Rhythm, No Edema, No Gallop, No JVD, No Murmur, Normal Peripheral Pulses Gastrointestinal: Normal Bowel Sounds, No Organomegaly, No Pulsatile Mass, Non Tender, Soft, Other (colostomy) Extremity: Normal Capillary Refill, No Pedal Edema Neurologic/Psychiatric: Alert, Oriented x3, Normal Mood/Affect Skin: Normal Color, Warm/Dry Progress/Results/Core Measures Results/Orders Lab Results Laboratory Tests Test 02/21/19 12:09 Range/Units White Blood Count 10.1 4.3-11.0 10^3/uL Red Blood Count 4.06 L 4.35-5.85 10^6/uL Hemoglobin 11.2 L 13.3-17.7 G/DL Hematocrit 38 L 40-54 % Mean Corpuscular Volume 93 80-99 FL Mean Corpuscular Hemoglobin 28 25-34 PG Mean Corpuscular Hemoglobin Concent 30 L 32-36 G/DL Red Cell Distribution Width 18.5 H 10.0-14.5 % Platelet Count 218 130-400 10^3/uL Mean Platelet Volume 9.3 7.4-10.4 FL Neutrophils (%) (Auto) 61 42-75 % Lymphocytes (%) (Auto) 28 12-44 % Monocytes (%) (Auto) 9 0-12 % Eosinophils (%) (Auto) 2 0-10 % Basophils (%) (Auto) 0 0-10 % Neutrophils # (Auto) 6.2 1.8-7.8 X 10^3 Lymphocytes # (Auto) 2.8 1.0-4.0 X 10^3 Monocytes # (Auto) 0.9 0.0-1.0 X 10^3 Eosinophils # (Auto) 0.2 0.0-0.3 10^3/uL Basophils # (Auto) 0.0 0.0-0.1 10^3/uL Prothrombin Time 13.3 12.2-14.7 SEC INR Comment 1.0 0.8-1.4 Activated Partial Thromboplast Time 27 24-35 SEC Sodium Level 140 135-145 MMOL/L Potassium Level 4.7 3.6-5.0 MMOL/L Chloride Level 111 H 98-107 MMOL/L Carbon Dioxide Level 18 L 21-32 MMOL/L Anion Gap 11 5-14 MMOL/L Blood Urea Nitrogen 35 H 7-18 MG/DL Creatinine 2.69 H 0.60-1.30 MG/DL Estimat Glomerular Filtration Rate 23 BUN/Creatinine Ratio 13 Glucose Level 155 H 70-105 MG/DL Calcium Level 9.5 8.5-10.1 MG/DL Corrected Calcium 9.7 8.5-10.1 MG/DL Magnesium Level 1.6 L 1.8-2.4 MG/DL Total Bilirubin 0.4 0.1-1.0 MG/DL Aspartate Amino Transf (AST/SGOT) 16 5-34 U/L Alanine Aminotransferase (ALT/SGPT) 25 0-55 U/L Alkaline Phosphatase 136 40-136 U/L Myoglobin 84.5 10.0-92.0 NG/ML Troponin I < 0.028 <0.028 NG/ML B-Type Natriuretic Peptide 414.7 H <100.0 PG/ML Total Protein 7.1 6.4-8.2 GM/DL Albumin 3.8 3.2-4.5 GM/DL Smear Scan YES Vital Signs/I&O 02/21/19 02/21/19 11:38 14:13 Temp 97.2 Pulse 109 90 Resp 18 18 B/P (MAP) 140/84 (102) 104/74 (84) Pulse Ox 95 96 O2 Delivery Room Air Room Air Blood Pressure Mean: 102 Progress Progress Note : Time: 13:47 Progress Note I have seen and evaluated the patient. I have informed him of his laboratory, imaging and ekg studies. His pain is complete resolved at this time. He refused to have his blood redrawn for repeat troponin. He agrees with plan of care, plans for discharge, return precautions were given. Initial ECG Impression Date: Feb 21, 2019 Initial ECG Impression Time: 11:47 Initial ECG Rate: 103 Initial ECG Rhythm: A Fib/Flutter Initial ECG Intervals: Normal Initial ECG Impression: Atrial Fibrillation Initial ECG Comparisson: Unchanged Diagnostic Imaging Diagonstic Imaging: Xray Plain Films/CT/US/NM/MRI: chest Comments NAME: JEANMARIE CABRERA [facility] REC#: [id number] PT STATUS: REG ER : 1932 PHYSICIAN: MARILEE PRIDE MD ADMIT DATE: 02/21/19/ER Draft Date of Exam:02/21/19 CHEST 1 VIEW, AP/PA ONLY INDICATION: Chest pain. TIME OF EXAM: 12:27 p.m. Correlation is made with prior study of 01/05/2019. FINDINGS: Lung volumes are diminished likely owing to poor inspiration. The heart size is stable. There is mild bibasilar subsegmental atelectasis. Mid and upper lung ruano are clear. There is no pneumothorax. IMPRESSION: Poor inspiration. There is mild bibasilar subsegmental atelectasis. Dictated on workstation # [id number] Dict: 02/21/19 1235 Trans: 02/21/19 1251 [id number] Interpreted by: JESSE MCLAUGHLIN MD Electronically signed by: Reviewed: Reviewed by Me Departure Impression Primary Impression: Chest pain Disposition: 01 HOME, SELF-CARE Condition: Stable/Unchanged Departure-Patient Inst. Decision time for Depature: 13:47 Referrals: ZECHARIAH ADAMS MD (PCP/Family) Primary Care Physician Patient Instructions: Chest Pain (DC) Add. Discharge Instructions: Resume your home medications as previously prescribed. Follow-up with her primary care provider within 1 week for recheck. Return back to the emergency room for worsening symptoms or concerns as needed. All discharge instructions reviewed with patient and/or family. Voiced understanding. KEANU ESPINOZA Feb 21, 2019 12:03
[2019-02-21 12:29] LABS: BASOPHILS % (AUTO) 0 % (0-10); EOSINOPHILS # (AUTO) 0.2 10^3/uL (0.0-0.3); EOSINOPHILS % (AUTO) 2 % (0-10); HEMATOCRIT 38 % (40-54); HEMOGLOBIN 11.2 G/DL (13.3-17.7); LYMPHOCYTES # (AUTO) 2.8 X 10^3 (1.0-4.0); LYMPHOCYTES % (AUTO) 28 % (12-44); MEAN CORPUSCULAR HEMOGLOBIN 28 PG (25-34); MEAN CORPUSCULAR HGB CONC 30 G/DL (32-36); MEAN CORPUSCULAR VOLUME 93 FL (80-99); MEAN PLATELET VOLUME 9.3 FL (7.4-10.4); MONOCYTES # (AUTO) 0.9 X 10^3 (0.0-1.0); MONOCYTES % (AUTO) 9 % (0-12); NEUTROPHILS # (AUTO) 6.2 X 10^3 (1.8-7.8); NEUTROPHILS % (AUTO) 61 % (42-75); PLATELET COUNT 218 10^3/uL (130-400); RED CELL DISTRIBUTION WIDTH 18.5 % (10.0-14.5); WHITE BLOOD COUNT 10.1 10^3/uL (4.3-11.0)
--- NOTE | 2019-02-21 12:34 | NUR ---
DAUGHTER TO ROOM
[2019-02-21 12:35] LABS: PROTHROMBIN TIME PATIENT 13.3 SEC (12.2-14.7)
[2019-02-21 12:45] LABS: ALANINE AMINOTRANSFERASE 25 U/L (0-55); ALBUMIN 3.8 GM/DL (3.2-4.5); ALKALINE PHOSPHATASE 136 U/L (40-136); BILIRUBIN,TOTAL 0.4 MG/DL (0.1-1.0); BUN/CREATININE RATIO 13; CALCIUM 9.5 MG/DL (8.5-10.1); CARBON DIOXIDE 18 MMOL/L (21-32); CHLORIDE 111 MMOL/L (98-107); CREATININE SERUM 2.69 MG/DL (0.60-1.30); GFR ESTIMATED 23; GLUCOSE 155 MG/DL (70-105); MAGNESIUM 1.6 MG/DL (1.8-2.4); POTASSIUM 4.7 MMOL/L (3.6-5.0); SODIUM 140 MMOL/L (135-145); TOTAL PROTEIN 7.1 GM/DL (6.4-8.2)
--- NOTE | 2019-02-21 12:52 | Diagnostic Imaging Report ---
INDICATION: Chest pain. TIME OF EXAM: 12:27 p.m. Correlation is made with prior study of 01/05/2019. FINDINGS: Lung volumes are diminished likely owing to poor inspiration. The heart size is stable. There is mild bibasilar subsegmental atelectasis. Mid and upper lung ruano are clear. There is no pneumothorax. IMPRESSION: Poor inspiration. There is mild bibasilar subsegmental atelectasis. Dictated by: Dictated on workstation # [id number]
[2019-02-21 13:08] LABS: SMEAR SCAN COMMENT YES
--- NOTE | 2019-02-21 13:26 | NUR ---
TO ROOM FAMILY AT BEDSIDE NO NEW C/O
--- NOTE | 2019-02-21 13:47 | NUR ---
PATIENT DECLINED TO HAVE 2ND TROPONIN DRAWN.
[2019-02-21 14:13] VITALS: BP 104/74
== END 2019-02-21 13:53 | disposition home or self-care (01) ==
LOC: EDUNIT# 11:36 → ER 11:37
DX: R07.81 Pleurodynia (principal); I25.10 Atherosclerotic heart disease of native coronary artery without angina pectoris; I10 Essential (primary) hypertension; K21.9 Gastro-esophageal reflux disease without esophagitis; M06.9 Rheumatoid arthritis, unspecified; E11.9 Type 2 diabetes mellitus without complications; Z80.0 Family history of malignant neoplasm of digestive organs; Z87.448 Personal history of other diseases of urinary system; Z87.19 Personal history of other diseases of the digestive system; Z93.3 Colostomy status; Z79.4 Long term (current) use of insulin; Z79.52 Long term (current) use of systemic steroids; Z79.02 Long term (current) use of antithrombotics/antiplatelets; Z87.891 Personal history of nicotine dependence; Z95.5 Presence of coronary angioplasty implant and graft
CPT/HCPCS: 36415; 71045; 80053; 83735; 83874; 83880; 84484; 85025; 85610; 85730; 93005; 93041

== ENCOUNTER 2019-04-24 13:05 | Inpatient (IN) | payer MEDICARE ==
[~2019-04-24] VITALS: Ht 170.2 cm; Wt 88.1 kg
[~2019-04-24 13:05] MED LIST changes: -BISA10SU6 RC; +BISA10SU8 RC; -BUME1TAB4 PO; +BUME1TAB8 PO; -BUME2TAB3 PO; +BUME2TAB7 PO
[2019-04-24] MEDS ORDERED: ASPIRIN 81 MG CHEW (CHILDREN'S ASA) PO ONE (13:15)
--- NOTE | 2019-04-24 13:16 | ED General ---
General Stated Complaint: WEAKNESS - SOA Source of Information: Patient Exam Limitations: No Limitations History of Present Illness Date Seen by Provider: Apr 24, 2019 Time Seen by Provider: 13:14 Initial Comments To ER by daughter with reports of generalized weakness, shortness of breath beginning worse than usual in the past 24 hours. No chest pain. History of chronic kidney disease, A. fib. Was formerly on dialysis but not currently. Was on Eliquis twice daily for atrial fibrillation but doesn't like the bruising so takes it only once a day. History of GI bleed earlier this year with hemoglobin down to 6. That he was started on Lasix about 2 days ago, has had quite a lot of urine output. Timing/Duration: 1-2 Days Severity: Moderate Associated Systoms: No Chest Pain; Weakness Allergies and Home Medications Allergies Coded Allergies: No Known Drug Allergies (Verified , 11/18/18) Home Medications Acetaminophen 650 Mg Tablet.er, 1,300 MG PO DAILY PRN for PAIN-MILD, (Reported) Albuterol Sulfate 2.5 Mg/3 Ml Vial.neb, 2.5 MG NEB TID PRN for SHORTNESS OF BREATH, (Reported) Amoxicillin/Potassium Clav 1 Each Tablet, 1 EACH PO BID Prescribed by: JACKELINE CEE on 12/28/18 1023 Atorvastatin Calcium 10 Mg Tablet, 10 MG PO HS, (Reported) Bumetanide 1 Mg Tablet, 1 MG PO BID Prescribed by: JACKELINE CEE on 12/28/18 1012 Calcitriol 0.25 Mcg Capsule, 0.25 MCG PO MoWeFr, (Reported) Clopidogrel Bisulfate 75 Mg Tablet, 75 MG PO DAILY Prescribed by: JACKELINE CEE on 12/28/18 1012 Dulaglutide 0.75 Mg/0.5 Ml Pen.injctr, 0.75 MG SQ WEEK, (Reported) Insulin Detemir 100 Unit/1 Ml Insuln.pen, 20 UNIT SQ HS, (Reported) Insulin Detemir 100 Unit/1 Ml Insuln.pen, 25 UNIT SQ DAILY, (Reported) Metoprolol Succinate 25 Mg Tab.er.24h, 25 MG PO DAILY Prescribed by: JACKELINE CEE on 12/28/18 1012 Ondansetron 4 Mg Tab.rapdis, 4 MG PO Q6H PRN for NAUSEA/VOMITING-1ST LINE Prescribed by: JACKELINE CEE on 12/16/18 1156 Pantoprazole Sodium 40 Mg Tablet.dr, 40 MG PO DAILY, (Reported) Polyethylene Glycol 3350 17 Gm Powd.pack, 17 GM PO DAILY PRN for CONSTIPATION- 2ND LINE, (Reported) Prednisone 5 Mg Tablet, 5 MG PO BID, (Reported) Sucralfate 1 Gm Tablet, 1 GM PO ACHS, (Reported) Tamsulosin HCl 0.4 Mg Cap, 0.4 MG PO DAILY, (Reported) Patient Home Medication List Home Medication List Reviewed: Yes Review of Systems Review of Systems Constitutional: see HPI EENTM: see HPI Respiratory: no symptoms reported Cardiovascular: no symptoms reported Genitourinary: no symptoms reported Musculoskeletal: no symptoms reported Skin: no symptoms reported Psychiatric/Neurological: No Symptoms Reported Hematologic/Lymphatic: No Symptoms Reported Immunological/Allergic: no symptoms reported Past Slnjavx-Pnnogo-Kwlaot Hx Patient Social History Alcohol Beverage of Choice: Beer, Wine Type Used: Cigars, Cigarettes Former Smoker, Quit: Feb 20, 1958 2nd Hand Smoke Exposure: No Recent Foreign Travel: No Contact w/Someone Who Travel: No Recent Hopitalizations: No Immunizations Up To Date Tetanus Booster (TDap): Unknown PED Vaccines UTD: No Date of Pneumonia Vaccine: Jan 13, 2014 Date of Influenza Vaccine: Jul 06, 2018 Seasonal Allergies Seasonal Allergies: No Past Medical History Surgeries: Yes Coronary Stent, Orthopedic Respiratory: No Currently Using CPAP: No Currently Using BIPAP: No Cardiac: Yes Coronary Artery Disease, Hypertension Neurological: No Genitourinary: Yes Benign Prostatic Hyperpl, Kidney Infection, Renal Failure Gastrointestinal: Yes Abdominal Hernia, Gastroesophageal Reflux, Gastrointestinal Bleed, Diverticulosis Musculoskeletal: Yes Arthritis, Rheumatoid Arthritis Endocrine: Yes Diabetes, Non-Insulin dep HEENT: Yes Macular Degeneration Cancer: No Psychosocial: No Integumentary: No Psoriasis Blood Disorders: No Adverse Reaction/Blood Tranf: No Family Medical History Diabetes mellitus 19 MOTHER G8 BROTHER FH: pancreatic cancer 19 FATHER Diabetes Physical Exam Vital Signs Vital Signs - First Documented 04/24/19 13:08 Temp 98.9 Pulse 92 Resp 20 B/P (MAP) 133/86 (102) Pulse Ox 98 O2 Delivery Room Air Capillary Refill : Height, Weight, BMI Height: 5'7.00" Weight: 207lbs. 10.0oz. 93.738961pc; 31.4 BMI Method:Stated General Appearance: No Apparent Distress, WD/WN, Chronically ill, Other (speaks in full sentences, vitals are stable. Oxygen 98% on room air, blood pressure 133/86, heart rate 90 atrial fibrillation) Respiratory: Normal Breath Sounds, No Accessory Muscle Use, No Respiratory Distress Cardiovascular: Irregularly Irregular Gastrointestinal: Non Tender, Soft Extremity: Normal Capillary Refill, Other (2+ pitting edema bilateral lower extremities) Neurologic/Psychiatric: Alert, Oriented x3 Progress/Results/Core Measures Suspected Sepsis SIRS Temperature: Pulse: Respiratory Rate: Laboratory Tests 04/24/19 13:19: White Blood Count 12.4H Blood Pressure / Mean: Laboratory Tests 04/24/19 13:19: Creatinine 2.72H, INR Comment 1.1, Platelet Count 249, Total Bilirubin 0.9 Results/Orders Lab Results Laboratory Tests Test 04/24/19 13:19 04/24/19 13:54 Range/Units White Blood Count 12.4 H 4.3-11.0 10^3/uL Red Blood Count 4.45 4.35-5.85 10^6/uL Hemoglobin 12.0 L 13.3-17.7 G/DL Hematocrit 38 L 40-54 % Mean Corpuscular Volume 86 80-99 FL Mean Corpuscular Hemoglobin 27 25-34 PG Mean Corpuscular Hemoglobin Concent 31 L 32-36 G/DL Red Cell Distribution Width 16.3 H 10.0-14.5 % Platelet Count 249 130-400 10^3/uL Mean Platelet Volume 8.9 7.4-10.4 FL Neutrophils (%) (Auto) 82 H 42-75 % Lymphocytes (%) (Auto) 11 L 12-44 % Monocytes (%) (Auto) 6 0-12 % Eosinophils (%) (Auto) 1 0-10 % Basophils (%) (Auto) 0 0-10 % Neutrophils # (Auto) 10.2 H 1.8-7.8 X 10^3 Lymphocytes # (Auto) 1.4 1.0-4.0 X 10^3 Monocytes # (Auto) 0.7 0.0-1.0 X 10^3 Eosinophils # (Auto) 0.1 0.0-0.3 10^3/uL Basophils # (Auto) 0.0 0.0-0.1 10^3/uL Prothrombin Time 15.0 H 12.2-14.7 SEC INR Comment 1.1 0.8-1.4 Activated Partial Thromboplast Time 32 24-35 SEC Sodium Level 136 135-145 MMOL/L Potassium Level 4.2 3.6-5.0 MMOL/L Chloride Level 108 H 98-107 MMOL/L Carbon Dioxide Level 14 L 21-32 MMOL/L Anion Gap 14 5-14 MMOL/L Blood Urea Nitrogen 44 H 7-18 MG/DL Creatinine 2.72 H 0.60-1.30 MG/DL Estimat Glomerular Filtration Rate 22 BUN/Creatinine Ratio 16 Glucose Level 195 H 70-105 MG/DL Calcium Level 9.8 8.5-10.1 MG/DL Corrected Calcium 10.0 8.5-10.1 MG/DL Magnesium Level 1.4 L 1.8-2.4 MG/DL Total Bilirubin 0.9 0.1-1.0 MG/DL Aspartate Amino Transf (AST/SGOT) 14 5-34 U/L Alanine Aminotransferase (ALT/SGPT) 14 0-55 U/L Alkaline Phosphatase 90 40-136 U/L Myoglobin 130.0 H 10.0-92.0 NG/ML Troponin I 0.037 H <0.028 NG/ML B-Type Natriuretic Peptide 267.3 H <100.0 PG/ML Total Protein 7.4 6.4-8.2 GM/DL Albumin 3.7 3.2-4.5 GM/DL Lipase 38 8-78 U/L Urine Color YELLOW Urine Clarity CLEAR Urine pH 5 5-9 Urine Specific Donnelly 1.010 L 1.016-1.022 Urine Protein 2+ H NEGATIVE Urine Glucose (UA) NEGATIVE NEGATIVE Urine Ketones NEGATIVE NEGATIVE Urine Nitrite NEGATIVE NEGATIVE Urine Bilirubin NEGATIVE NEGATIVE Urine Urobilinogen NORMAL NORMAL MG/DL Urine Leukocyte Esterase NEGATIVE NEGATIVE Urine RBC (Auto) NEGATIVE NEGATIVE Urine RBC NONE /HPF Urine WBC RARE /HPF Urine Squamous Epithelial Cells RARE /HPF Urine Crystals NONE /LPF Urine Bacteria TRACE /HPF Urine Casts NONE /LPF Urine Mucus NEGATIVE /LPF Urine Culture Indicated NO My Orders Orders - ANGELA LU 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 Cbc With Automated Diff (04/24/19 13:13) Magnesium (04/24/19 13:13) Chest 1 View, Ap/Pa Only (04/24/19 13:13) Ekg Tracing (04/24/19 13:13) Cardiac Profile 1 (04/24/19 13:13) Comprehensive Metabolic Panel (04/24/19 13:13) Myoglobin Serum (04/24/19 13:13) Protime With Inr (04/24/19 13:13) Partial Thromboplastin Time (04/24/19 13:13) O2 (04/24/19 13:13) Monitor-Rhythm Ecg Trace Only (04/24/19 13:13) Lipid Panel (04/25/19 06:00) Ed Iv/Invasive Line Start (04/24/19 13:13) Lipase (04/24/19 13:13) BNP (04/24/19 13:13) Aspirin Chewable Tablet (Baby Aspirin Ch (04/24/19 13:15) Ua Culture If Indicated (04/24/19 13:18) Ct Head Wo (04/24/19 13:36) Fentanyl Injection (Sublimaze Injection (04/24/19 13:45) Magnesium Oxide Tablet (Mag Ox Tablet) (04/24/19 14:15) General/Regular (04/24/19 Lunch) Medications Given in ED Current Medications Medications Dose Ordered Sig/Adrienne Route Start Time Stop Time Status Last Admin Dose Admin Aspirin 324 mg ONCE ONCE PO 04/24/19 13:15 04/24/19 13:16 DC 04/24/19 13:32 324 MG Fentanyl Citrate 25 mcg ONCE PRN IVP 04/24/19 13:45 04/24/19 14:40 25 MCG Magnesium Oxide 400 mg ONCE ONCE PO 04/24/19 14:15 04/24/19 14:16 DC 04/24/19 14:42 400 MG Vital Signs/I&O 04/24/19 13:08 Temp 98.9 Pulse 92 Resp 20 B/P (MAP) 133/86 (102) Pulse Ox 98 O2 Delivery Room Air Capillary Refill : Departure Communication (Admissions) Time/Spoke to Admitting Phy: 15:[address] Tavares, will admit, slowly hydrate, repeat labs in the morning and discharge tomorrow if he appears better. Impression Primary Impression: Dyspnea Qualified Codes: R06.00 - Dyspnea, unspecified Additional Impression: Volume depletion Disposition: HOME, SELF-CARE Condition: Stable Admissions Decision to Admit Reason: Admit from ER (General) Decision to Admit/Date: Apr 24, 2019 Time/Decision to Admit Time: 15:10 Departure-Patient Inst. Referrals: IGNACIA TIMMONS (PCP/Family) Primary Care Physician ANGELA LU APRN Apr 24, 2019 13:16
[2019-04-24 13:27] LABS: BASOPHILS % (AUTO) 0 % (0-10); EOSINOPHILS # (AUTO) 0.1 10^3/uL (0.0-0.3); EOSINOPHILS % (AUTO) 1 % (0-10); HEMATOCRIT 38 % (40-54); LYMPHOCYTES # (AUTO) 1.4 X 10^3 (1.0-4.0); LYMPHOCYTES % (AUTO) 11 % (12-44); MEAN CORPUSCULAR HEMOGLOBIN 27 PG (25-34); MEAN CORPUSCULAR HGB CONC 31 G/DL (32-36); MEAN CORPUSCULAR VOLUME 86 FL (80-99); MEAN PLATELET VOLUME 8.9 FL (7.4-10.4); MONOCYTES # (AUTO) 0.7 X 10^3 (0.0-1.0); MONOCYTES % (AUTO) 6 % (0-12); NEUTROPHILS # (AUTO) 10.2 X 10^3 (1.8-7.8); NEUTROPHILS % (AUTO) 82 % (42-75); PLATELET COUNT 249 10^3/uL (130-400); RED CELL DISTRIBUTION WIDTH 16.3 % (10.0-14.5); WHITE BLOOD COUNT 12.4 10^3/uL (4.3-11.0)
[2019-04-24] MEDS ORDERED: fentaNYL INJECTION 100 MCG/2 ML AMP IVP PRN (13:45)
[2019-04-24 13:52] LABS: ALBUMIN 3.7 GM/DL (3.2-4.5); BILIRUBIN,TOTAL 0.9 MG/DL (0.1-1.0); CALCIUM 9.8 MG/DL (8.5-10.1); CREATININE SERUM 2.72 MG/DL (0.60-1.30); MAGNESIUM 1.4 MG/DL (1.8-2.4); POTASSIUM 4.2 MMOL/L (3.6-5.0); TOTAL PROTEIN 7.4 GM/DL (6.4-8.2)
[2019-04-24 14:00] LABS: BILIRUBIN,URINE NEGATIVE (NEGATIVE); CLARITY,URINE CLEAR; COLOR,URINE YELLOW; GLUCOSE, URINE (UA) NEGATIVE (NEGATIVE); KETONES,URINE NEGATIVE (NEGATIVE); LEUKOCYTE ESTERASE ,URINE NEGATIVE (NEGATIVE); NITRITE,URINE NEGATIVE (NEGATIVE); PH,URINE 5 (5-9); PROTEIN,URINE 2+ (NEGATIVE); UROBILINOGEN,URINE NORMAL (NORMAL)
[2019-04-24 14:00] LABS: INR 1.1 (0.8-1.4)
[2019-04-24 14:09] LABS: BACTERIA,URINE TRACE /HPF; SQUAMOUS EPITHELIAL CELL,UR RARE /HPF; WBC,URINE RARE /HPF
[2019-04-24] MEDS ORDERED: MAGNESIUM OXIDE (MAG-OX)400 MG TAB PO ONE (14:15)
--- NOTE | 2019-04-24 14:22 | NUR ---
PT TO CT PER W/C AT THIS TIME.
--- NOTE | 2019-04-24 14:50 | Diagnostic Imaging Report ---
PROCEDURE: CT head without contrast. TECHNIQUE: Multiple contiguous axial images were obtained through the brain without the use of intravenous contrast. Auto Exposure Controls were utilized during the CT exam to meet ALARA standards for radiation dose reduction. INDICATION: Headache. COMPARISON: 01/05/2019. FINDINGS: Moderate generalized cerebral and cerebellar parenchymal volume loss. No CT evidence for territorial infarction. No intracranial hemorrhage, mass effect, hydrocephalus or extra-axial fluid collections. The visualized paranasal sinuses and mastoids are clear. Osseous structures are intact. IMPRESSION: No acute intracranial CT findings. Dictated by: Dictated on workstation # [id number]
--- NOTE | 2019-04-24 14:51 | Diagnostic Imaging Report ---
EXAM: CHEST 1 VIEW, AP/PA ONLY INDICATION: Shortness of breath. Weakness. COMPARISON: 02/21/2019. FINDINGS: Low lung volumes. Normal heart size and central pulmonary vascularity. No pleural effusion or pneumothorax. Mild bibasilar atelectasis. Calcified aorta. No acute osseous findings. IMPRESSION: Low lung volumes with mild bibasilar atelectasis. No significant change. Dictated by: Dictated on workstation # [id number]
[2019-04-24 15:40] VITALS: BP 121/78
[2019-04-24] MEDS: MAGNESIUM OXIDE (MAG-OX)400 MG TAB PO SCH (16:40)
[2019-04-24] MEDS: CEPHALEXIN 250 MG (KEFLEX) CAP PO SCH ×2 (16:40→21:37)
[2019-04-24] MEDS: MUPIROCIN 2% OINT 22 GM (BACTROBAN) TUBE TOP SCH ×2 (16:40→21:39)
[2019-04-24] MEDS: LACTATED RINGERS 1,000 ML IV SCH (16:41)
[2019-04-24] MEDS ORDERED: METO-395 PO (17:44)
[2019-04-24] MEDS ORDERED: APIX2.5T PO (17:46)
[2019-04-24] MEDS ORDERED: PAMI30VI8 SQ (17:47)
[2019-04-24] MEDS ORDERED: CALC-778 PO (17:49)
[2019-04-24 19:44] VITALS: BP 126/69
[2019-04-25] VITALS (7 sets, daily range): BP systolic 127–164; BP diastolic 71–84
[2019-04-25] MEDS ORDERED: IBUPROFEN 600 MG (MOTRIN) TAB PO SCH
[2019-04-25] MEDS ORDERED: IBUPROFEN 600 MG (MOTRIN) TAB PO PRN (01:30)
[2019-04-25] MEDS: LACTATED RINGERS 1,000 ML IV SCH ×3 (02:07→18:52)
--- NOTE | 2019-04-25 03:51 | NUR ---
pt c/o severe headache pain and requested pain medicine. pt stated tylenol wasnt strong enough and wanted something stronger. I called dr. dickson new order obtained. Ibuprofen 600mg q6hr prn. pt refused to take ibuprofen and stated will wait and talk to in am.
[2019-04-25 06:40] LABS: BASOPHILS % (AUTO) 0 % (0-10); EOSINOPHILS # (AUTO) 0.1 10^3/uL (0.0-0.3); EOSINOPHILS % (AUTO) 1 % (0-10); HEMATOCRIT 34 % (40-54); HEMOGLOBIN 10.8 G/DL (13.3-17.7); LYMPHOCYTES % (AUTO) 18 % (12-44); MEAN CORPUSCULAR HEMOGLOBIN 28 PG (25-34); MEAN CORPUSCULAR HGB CONC 32 G/DL (32-36); MEAN CORPUSCULAR VOLUME 86 FL (80-99); MONOCYTES % (AUTO) 9 % (0-12); NEUTROPHILS # (AUTO) 7.9 X 10^3 (1.8-7.8); NEUTROPHILS % (AUTO) 72 % (42-75); PLATELET COUNT 207 10^3/uL (130-400); RED CELL DISTRIBUTION WIDTH 15.4 % (10.0-14.5)
[2019-04-25 07:00] LABS: ALBUMIN 3.2 GM/DL (3.2-4.5); BILIRUBIN,TOTAL 0.5 MG/DL (0.1-1.0); CALCIUM 8.9 MG/DL (8.5-10.1); CREATININE SERUM 2.57 MG/DL (0.60-1.30); MAGNESIUM 1.2 MG/DL (1.8-2.4); POTASSIUM 3.8 MMOL/L (3.6-5.0); TOTAL PROTEIN 6.1 GM/DL (6.4-8.2)
[2019-04-25 07:01] LABS: CHOLESTEROL 89 MG/DL (< 200); HDL CHOLESTEROL 50 MG/DL (40-60); TRIGLYCERIDES 90 MG/DL (<150); VLDL CHOLESTEROL 18 MG/DL (5-40)
[2019-04-25] MEDS ORDERED: ACETAMINOPHEN 500 MG TAB (TYLENOL) ONE (07:37)
[2019-04-25] MEDS: MAGNESIUM OXIDE (MAG-OX)400 MG TAB PO SCH (07:47)
[2019-04-25] MEDS: CEPHALEXIN 250 MG (KEFLEX) CAP PO SCH ×3 (07:47→20:40)
[2019-04-25] MEDS: MUPIROCIN 2% OINT 22 GM (BACTROBAN) TUBE TOP SCH ×2 (07:48→20:35)
[2019-04-25] MEDS ORDERED: inSUlin ASPART (NovoLOG) 1 UNIT/0.01 ML (CHARGE PER UNIT) SC SCH ×2 (11:00→16:00)
--- NOTE | 2019-04-25 12:58 | NUR ---
patient administered own humolog - Dr. Tavares notified
--- NOTE | 2019-04-25 14:25 | History & Physical-Hospitalist ---
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 He presented to the emergency room with complaints of generalized weakness and shortness of breath. He has a number of health problems which is to say diabetes hypertension and renal failure. He had a bowel resection and colostomy placed earlier this year as a result of diverticulitis. He had 17sessions of renal dialysis and then regained enough function to go without. Source: patient Exam Limitations: no limitations Date Seen 04/25/19 Time Seen by a Provider: 14:20 Attending Physician Nguyễn John MD [facility] [place] Referring Physician Date of Admission Apr 24, 2019 at 15:03 Home Medications & Allergies Home Medications Reviewed patient Home Medication Reconciliation performed by pharmacy medication reconciliations process maintenance technician and/or nursing. Patients Allergies have been reviewed. Allergies Allergies Coded Allergies No Known Drug Allergies (Verified11/18/18) Past Uwidqce-Swpnjv-Qbsbyj Hx Past Med/Social Hx: Reviewed Nursing Past Med/Soc Hx Patient Social History Alcohol Use: Denies Use Number of Drinks Today: AA Alcohol Beverage of Choice: Beer, Wine Recreational Drug Use: No Smoking Status: Unknown if Ever Smoked Former Smoker, Quit: Feb 20, 1958 Type Used: Cigars, Cigarettes 2nd Hand Smoke Exposure: No Physical Abuse Screen: No Sexual Abuse: No Recent Foreign Travel: No Contact w/other who traveled: No Recent Hopitalizations: No Recent Infectious Disease Expo: No Immunizations Up To Date Tetanus Booster (TDap): Unknown Pediatric: No Date of Pneumonia Vaccine: Jan 13, 2014 Date of Influenza Vaccine: Jul 06, 2018 Seasonal Allergies Seasonal Allergies: No Past Medical History Surgeries: Coronary Stent, Orthopedic Currently Using CPAP: No Currently Using BIPAP: No Cardiac: Coronary Artery Disease, Hypertension Genitourinary: Benign Prostatic Hyperpl, Kidney Infection, Renal Failure Gastrointestinal: Abdominal Hernia, Gastroesophageal Reflux, Gastrointestinal Bleed, Diverticulosis Musculoskeletal: Arthritis, Rheumatoid Arthritis Endocrine: Diabetes, Non-Insulin dep HEENT: Macular Degeneration Skin/Integumentary: Psoriasis History of Blood Disorders: No Adverse Reaction to Blood Baker: No Family History Diabetes mellitus 19 MOTHER G8 BROTHER FH: pancreatic cancer 19 FATHER Diabetes Review of Systems Constitutional: see HPI EENTM: nose congestion, other (headaches) Respiratory: dyspnea on exertion Cardiovascular: no symptoms reported Gastrointestinal: no symptoms reported Genitourinary: decreased output Musculoskeletal: no symptoms reported Skin: no symptoms reported Psychiatric/Neurological: No Symptoms Reported Physical Exam Physical Exam Vital Signs Vital Signs - First Documented 04/24/19 13:08 Temp 98.9 Pulse 92 Resp 20 B/P (MAP) 133/86 (102) Pulse Ox 98 O2 Delivery Room Air Capillary Refill : Less Than 3 SecondsLess Than 3 Seconds Height, Weight, BMI Height: 5'7.00" Weight: 194lbs. 2.0oz. 88.347783zl; 30.3 BMI Method:Stated General Appearance: No Apparent Distress, WD/WN Eyes: Bilateral Eye Normal Inspection HEENT: Normal ENT Inspection Neck: Normal Inspection Respiratory: Chest Non Tender, Lungs Clear, Normal Breath Sounds, No Accessory Muscle Use, No Respiratory Distress Cardiovascular: Regular Rate, Rhythm, No Edema, No Gallop, No JVD, No Murmur, Normal Peripheral Pulses Gastrointestinal: Normal Bowel Sounds, No Organomegaly, No Pulsatile Mass, Non Tender, Soft Extremity: Normal Capillary Refill, Normal Inspection, Normal Range of Motion, Non Tender, No Calf Tenderness, No Pedal Edema Neurologic/Psychiatric: Alert, Oriented x3, No Motor/Sensory Deficits, Normal Mood/Affect Results Results/Procedures Labs Laboratory Tests 04/24/19 13:19 04/25/19 06:19 Patient resulted labs reviewed. Assessment/Plan Admission Diagnosis Dehydration. 2.renal failure. 3.generalized weakness. 4.diabetes. Admission Status: Inpatient Order (span 2 midnights) Reason for Inpatient Admission: Will require metabolic stabilization Clinical Quality Measures DVT/VTE Risk/Contraindication: Risk Factor Score Per Nursin RFS Level Per Nursing on Admit: 3=High NGUYỄN JOHN MD Apr 25, 2019 14:25
[2019-04-25] MEDS ORDERED: PATIENT MAY USE OWN MEDS, ALL MC SCH (14:30)
[2019-04-25] MEDS: INSULIN LISPRO 100 UNIT/ML SQ SCH (16:30)
[2019-04-25] MEDS: HUMALOG KWIK PEN SQ SCH ×2 (16:31→20:52)
[2019-04-25] MEDS: meTOprolol SUCCINATE 100 MG (TOPROL XL) TAB PO SCH (18:49)
--- NOTE | 2019-04-25 18:49 | NUR ---
icu this morning notified this appeals rn rate in the 140s patient given morning dose of metoprolol 100mg per dr dickson orders , heart rate came down, this evening same thing just administered tonight metoprolol - icu notified
[2019-04-25] MEDS: CALCIUM CARBONATE 500 MG (TUMS) TAB.CHEW PO SCH (20:32)
[2019-04-25] MEDS: predniSONE 5 MG TAB PO SCH (20:33)
[2019-04-25] MEDS: ATORVASTATIN 10 MG (LIPITOR) TABLET PO SCH (20:34)
[2019-04-25] MEDS ORDERED: inSUlin ASPART (NovoLOG) 1 UNIT/0.01 ML (CHARGE PER UNIT) ONE (20:39)
[2019-04-25] MEDS ORDERED: ATORVASTATIN 10 MG (LIPITOR) TABLET PO SCH (21:00)
[2019-04-25] MEDS ORDERED: predniSONE 5 MG TAB PO SCH (21:00)
[2019-04-25] MEDS ORDERED: INSULIN DETEMIR 100 UNIT/ML SQ SCH (21:00)
[2019-04-25] MEDS ORDERED: meTOprolol SUCCINATE 100 MG (TOPROL XL) TAB PO SCH (21:00)
[2019-04-26 04:25] VITALS: BP 149/87
[2019-04-26] MEDS: LACTATED RINGERS 1,000 ML IV SCH ×2 (04:46→14:44)
[2019-04-26] MEDS: INSULIN LISPRO 100 UNIT/ML SQ SCH (06:56)
[2019-04-26] MEDS: HUMALOG KWIK PEN SQ SCH (06:56)
[2019-04-26 08:00] VITALS: BP 172/78
[2019-04-26] MEDS: MAGNESIUM OXIDE (MAG-OX)400 MG TAB PO SCH (08:36)
[2019-04-26] MEDS ORDERED: PANTOPRAZOLE 40 MG (PROTONIX) TAB PO SCH (09:00)
[2019-04-26] MEDS ORDERED: CLOPIDOGREL 75 MG (PLAVIX) TABLET PO SCH (09:00)
[2019-04-26] MEDS ORDERED: CALCITRIOL 0.25 MCG (ROCALTROL) CAPSULE PO SCH (09:00)
[2019-04-26] MEDS ORDERED: TAMSULOSIN 0.4 MG (FLOMAX) CAP PO SCH (09:00)
[2019-04-26] MEDS ORDERED: APIXABAN 2.5 MG (ELIQUIS) TABLET PO SCH (09:00)
[2019-04-26] MEDS: CEPHALEXIN 250 MG (KEFLEX) CAP PO SCH ×3 (09:41→19:47)
[2019-04-26] MEDS: meTOprolol SUCCINATE 100 MG (TOPROL XL) TAB PO SCH ×2 (09:41→19:46)
[2019-04-26] MEDS: CALCIUM CARBONATE 500 MG (TUMS) TAB.CHEW PO SCH ×3 (09:41→19:45)
[2019-04-26] MEDS: PANTOPRAZOLE 40 MG (PROTONIX) TAB PO SCH (09:43)
[2019-04-26] MEDS: MUPIROCIN 2% OINT 22 GM (BACTROBAN) TUBE TOP SCH ×2 (09:43→19:47)
[2019-04-26] MEDS: predniSONE 5 MG TAB PO SCH ×2 (09:43→19:45)
[2019-04-26] MEDS: TAMSULOSIN 0.4 MG (FLOMAX) CAP PO SCH (09:44)
[2019-04-26] MEDS: CALCITRIOL 0.25 MCG (ROCALTROL) CAPSULE PO SCH (09:45)
[2019-04-26] MEDS: APIXABAN 2.5 MG (ELIQUIS) TABLET PO SCH (09:46)
[2019-04-26] MEDS: CLOPIDOGREL 75 MG (PLAVIX) TABLET PO SCH (09:46)
--- NOTE | 2019-04-26 10:02 | NUR ---
NOTE THAT PT HAS HIS INSULIN PENS HERE BUT DOES NOT HAVE NEEDLE FOR THEM -- OUR PHARMACY DIES NOT HAVE THE NEEDLES -- TALKED TO PHARMACY AND THEY WILL HAVE PT TAKE OUR PHARMACY INSULIN
[2019-04-26 12:00] VITALS: BP 122/76
[2019-04-26] MEDS: inSUlin ASPART (NovoLOG) 1 UNIT/0.01 ML (CHARGE PER UNIT) SC SCH ×5 (13:22→21:36)
[2019-04-26] MEDS ORDERED: CLOP75TA69 PO (13:49)
[2019-04-26] MEDS ORDERED: FURO40TA4 PO (14:04)
[2019-04-26] MEDS ORDERED: TRAZ-222 PO (14:04)
[2019-04-26] MEDS ORDERED: POTA20TA15 PO (14:04)
[2019-04-26] MEDS ORDERED: NITR0.4T39 SL (14:04)
--- NOTE | 2019-04-26 14:10 | NUR ---
MED REC WAS COMPLETED PRIOR TO MED REC TECH AVAILABILITY. I CALLED [facility] FOR A LIST OF RECENTLY FILLED MEDICATIONS TO VERIFY. [facility] FILLED: 04-23-19 PROTONIX 40MG DAILY 04-23-19 PLAVIX 75MG DAILY 04-23-19 LIPITOR 10MG HS 04-19-19 POTASSIUM 20MEQ DAILY 04-19-19 LASIX 40MG DAILY 04-12-19 METOPROLOL XL 100MG BID 03-31-19 NITRO 0.4MG UD PRN 03-31-19 CALCITRIOL 0.25MCG Fri03-31-19 TRAZODONE 50MG HS (ONLY TAKES PRN) 03-31-19 HYOSCYAMINE SL 0.125MG 1 TAB Q6H PRN (NO LONGER TAKES) 03-31-19 LEVEMIR FLEXPEN 21 BID (ONLY TAKES 21 AM) 03-31-19 HUMALOG KWIKPEN 7 UNITS TID 03-31-19 TAMSULOSIN 0.4MG DAILY 03-31-19 PREDNISONE 5MG BID 04-23-18 ELIQUIS (ON HOLD FROM 03-31-19 2.5MG BID BUT NOT PICKED UP)- STATES GETS IT FROM [facility]. (PATIENT ONLY TAKES 1 IN THE AM) HE TAKES TYLENOL AND TUMS OTC.
--- NOTE | 2019-04-26 14:40 | NUR ---
PT C/O LEACH -- CALLED DR MEREDITH MESSAGE - PT TAKES TYLENOL -- DOES NOT TAKE MOTRIN --- MESSAGE LEFT
[2019-04-26] MEDS: ACETAMINOPHEN 325 MG TABLET PO PRN (15:10)
--- NOTE | 2019-04-26 16:02 | NUR ---
CM/SS, respond to consult for possible transition to assisted living. PLAN: Return to [facility] Medicare skilled upon discharge if facility accepts to provide care, referral completed this p.m. SUMMARY: Patient resides at [facility] and has experienced a health decline over the past few months with diabetes, hypertension, renal failure and short term dialysis, bowel resection with colostomy. He had discussed with his children that he felt he could no longer reside alone and care adequately for himself and they had a tentative plan for assisted living prior to hospitalization. Coal Equipment Operator met with patient and his daughter Radha Hunt, provided list of local [facility] facilities, and discussed alternate options for private pay in-home substitute services. In general, patient was very concerned about cost and spending down his annuity. Lengthy discussion about the needs he identified like nutrition/diet, colostomy care, housekeeping, and finances. Patient has three sources of income, SS, small work pension, and a monthly draw on an annuity. He indicates his arrangements are complete and paid for. He repeatedly stated he did not want to spend all his money down on himself, that he wanted to keep it back to provide for his two children upon his . His brother had been at [facility], and it ended that he may explore that further. Coal Equipment Operator provided [facility]/Alice Solorzano information so they could contact her for Medicaid details and eligibility. Patient was discharged from [facility] 04/03/19 and has a few Medicare skilled days remaining. Per patient and Radha, referral was completed there for a window of therapies and nursing in hope to regain more independence and pursue assisted living apartment. CARE Assessment assumed current. Followup as appropriate.
[2019-04-26 16:05] VITALS: BP 118/77
--- NOTE | 2019-04-26 16:06 | Progress Note ---
Subjective Subjective/Events-last exam Patient states that he feels like a bus hit him. Denies anything in particular happening but states that he has just been getting weaker and weaker over the last few weeks. Pain well controlled. Review of Systems Cardiovascular: Palpitations; No: Chest Pain Gastrointestinal: Nausea Genitourinary: No Dysuria, No Frequency Neurological: Weakness Objective Exam Last Set of Vital Signs Vital Signs Date Time Temp Pulse Resp B/P (MAP) Pulse Ox O2 Delivery O2 Flow Rate FiO2 04/26/19 12:40 103 04/26/19 12:00 98.4 20 122/76 (91) 99 Room Air Capillary Refill : Less Than 3 SecondsLess Than 3 Seconds I&O Intake and Output 04/26/19 00:00 Intake Total 2210 ml Output Total 2875 ml Balance -665 ml Intake Oral 1210 ml IV Total 1000 ml Output Urine Total 2275 ml Stool Total 100 ml Urine/Stool Mix 500 ml General: Alert, Oriented X3 Lungs: Clear to Auscultation, Normal Air Movement Heart: Regular Rate, No Murmurs Abdomen: Normal Bowel Sounds, Soft, Other (+ epigastric ttp) Extremities: No Edema, No Tenderness/Swelling Skin: No Rashes, No Breakdown Results/Procedures Lab Laboratory Tests 04/25/19 20:39: Glucometer 267H 04/26/19 05:49: Glucometer 278H 04/26/19 11:38: Glucometer 249H Assessment/Plan Assessment/Plan (1) Acute renal failure superimposed on stage 3 chronic kidney disease Status: Acute Assessment & Plan: 04/26: Will continue to trend, patient will likely need urgent f.u with renal as outpatient Qualifiers: Qualified Codes: N17.9 - Acute kidney failure, unspecified; N18.3 - Chronic kidney disease, stage 3 (moderate) (2) Generalized weakness Status: Acute Assessment & Plan: 04/26: Will get PT/OT to see patient Clinical Quality Measures DVT/VTE Risk/Contraindication: Risk Factor Score Per Nursin RFS Level Per Nursing on Admit: 3=High ANGELIKA REED MD Apr 26, 2019 16:06
[2019-04-26 19:40] VITALS: BP 112/69
[2019-04-26] MEDS: ATORVASTATIN 10 MG (LIPITOR) TABLET PO SCH (19:46)
[2019-04-27] VITALS (7 sets, daily range): BP systolic 122–147; BP diastolic 72–84
[2019-04-27] MEDS: LACTATED RINGERS 1,000 ML IV SCH ×2 (00:15→11:00)
[2019-04-27] MEDS: ACETAMINOPHEN 325 MG TABLET PO PRN ×2 (02:39→08:53)
[2019-04-27 06:39] LABS: BASOPHILS % (AUTO) 0 % (0-10); EOSINOPHILS # (AUTO) 0.1 10^3/uL (0.0-0.3); EOSINOPHILS % (AUTO) 1 % (0-10); HEMATOCRIT 33 % (40-54); HEMOGLOBIN 10.2 G/DL (13.3-17.7); LYMPHOCYTES # (AUTO) 1.4 X 10^3 (1.0-4.0); LYMPHOCYTES % (AUTO) 16 % (12-44); MEAN CORPUSCULAR HEMOGLOBIN 27 PG (25-34); MEAN CORPUSCULAR HGB CONC 31 G/DL (32-36); MEAN CORPUSCULAR VOLUME 88 FL (80-99); MEAN PLATELET VOLUME 10.1 FL (7.4-10.4); MONOCYTES # (AUTO) 0.7 X 10^3 (0.0-1.0); MONOCYTES % (AUTO) 7 % (0-12); NEUTROPHILS # (AUTO) 6.8 X 10^3 (1.8-7.8); NEUTROPHILS % (AUTO) 76 % (42-75); PLATELET COUNT 204 10^3/uL (130-400); RED CELL DISTRIBUTION WIDTH 15.4 % (10.0-14.5)
[2019-04-27] MEDS: inSUlin ASPART (NovoLOG) 1 UNIT/0.01 ML (CHARGE PER UNIT) SC SCH ×7 (06:41→21:32)
[2019-04-27 06:56] LABS: CALCIUM 8.7 MG/DL (8.5-10.1); CREATININE SERUM 2.48 MG/DL (0.60-1.30); POTASSIUM 4.9 MMOL/L (3.6-5.0)
[2019-04-27] MEDS: CALCIUM CARBONATE 500 MG (TUMS) TAB.CHEW PO SCH ×3 (08:52→21:40)
[2019-04-27] MEDS: CEPHALEXIN 250 MG (KEFLEX) CAP PO SCH ×3 (08:52→21:31)
[2019-04-27] MEDS: MAGNESIUM OXIDE (MAG-OX)400 MG TAB PO SCH (08:53)
[2019-04-27] MEDS: CLOPIDOGREL 75 MG (PLAVIX) TABLET PO SCH (08:55)
[2019-04-27] MEDS: predniSONE 5 MG TAB PO SCH ×2 (08:56→21:30)
[2019-04-27] MEDS: TAMSULOSIN 0.4 MG (FLOMAX) CAP PO SCH (08:56)
[2019-04-27] MEDS: PANTOPRAZOLE 40 MG (PROTONIX) TAB PO SCH (08:56)
[2019-04-27] MEDS: meTOprolol SUCCINATE 100 MG (TOPROL XL) TAB PO SCH ×2 (08:56→21:30)
[2019-04-27] MEDS: APIXABAN 2.5 MG (ELIQUIS) TABLET PO SCH (08:57)
[2019-04-27] MEDS: MUPIROCIN 2% OINT 22 GM (BACTROBAN) TUBE TOP SCH ×2 (08:57→21:36)
[2019-04-27] MEDS ORDERED: PROMETHAZINE INJ 25 MG/ML (PHENERGAN) AMP IVP NR (11:00)
[2019-04-27] MEDS ORDERED: KETOROLAC 30 MG/ML VIAL IVP NR (11:00)
--- NOTE | 2019-04-27 12:10 | NUR ---
CM/SS. V has accepted patient for Medicare admission when medically stable. Await final orders, CARE Assessment current.
--- NOTE | 2019-04-27 14:25 | NUR ---
Pastoral care visit.
--- NOTE | 2019-04-27 20:16 | Progress Note ---
Subjective Subjective/Events-last exam Patient complaining of LEACH and left foot pain this AM. States that he is not one to get LEACH. Otherwise tolerating ambulation and PO diet. Review of Systems Pulmonary: No Dyspnea, No Cough Cardiovascular: No: Chest Pain, Palpitations, Edema Gastrointestinal: No: Nausea, Vomiting, Abdominal Pain Neurological: Weakness Objective Exam Last Set of Vital Signs Vital Signs Date Time Temp Pulse Resp B/P (MAP) Pulse Ox O2 Delivery O2 Flow Rate FiO2 04/27/19 16:00 97.8 86 22 127/82 (97) 99 Room Air Capillary Refill : Less Than 3 SecondsLess Than 3 Seconds I&O Intake and Output 04/27/19 00:00 Intake Total 3470 ml Output Total 2925 ml Balance 545 ml Intake Oral 1470 ml IV Total 2000 ml Output Urine Total 2100 ml Stool Total 575 ml Urine/Stool Mix 250 ml General: Alert, Oriented X3, Cooperative, No Acute Distress HEENT: Mucous Memb Moist/[place] Lungs: Clear to Auscultation, Normal Air Movement Heart: Regular Rate, No Murmurs Abdomen: Normal Bowel Sounds, Soft, No Tenderness, No Masses Extremities: No Edema, No Tenderness/Swelling Skin: Other (DTI to left heal) Neuro: Normal Speech, Sensation Intact, Cranial Nerves 3-12 NL Results/Procedures Lab Laboratory Tests 04/26/19 20:46: Glucometer 287H 04/27/19 05:45: White Blood Count 9.0, Red Blood Count 3.72L, Hemoglobin 10.2L, Hematocrit 33L, Mean Corpuscular Volume 88, Mean Corpuscular Hemoglobin 27, Mean Corpuscular Hemoglobin Concent 31L, Red Cell Distribution Width 15.4H, Platelet Count 204, Mean Platelet Volume 10.1, Neutrophils (%) (Auto) 76H, Lymphocytes (%) (Auto) 16, Monocytes (%) (Auto) 7, Eosinophils (%) (Auto) 1, Basophils (%) (Auto) 0, Neutrophils # (Auto) 6.8, Lymphocytes # (Auto) 1.4, Monocytes # (Auto) 0.7, Eosinophils # (Auto) 0.1, Basophils # (Auto) 0.0, Sodium Level 134L, Potassium Level 4.9, Chloride Level 108H, Carbon Dioxide Level 17L, Anion Gap 9, Blood Urea Nitrogen 27H, Creatinine 2.48H, Estimat Glomerular Filtration Rate 25, BUN/Creatinine Ratio 11, Glucose Level 391H, Calcium Level 8.7 04/27/19 06:25: Glucometer 357H 04/27/19 11:08: Glucometer 194H 04/27/19 15:47: Glucometer 136H Assessment/Plan Assessment/Plan (1) Acute renal failure superimposed on stage 3 chronic kidney disease Status: Acute Assessment & Plan: 04/26: Will continue to trend, patient will likely need urgent f.u with renal as outpatient 04/27: trending down, seems to be at baseline Qualifiers: Qualified Codes: N17.9 - Acute kidney failure, unspecified; N18.3 - Chronic kidney disease, stage 3 (moderate) (2) Generalized weakness Status: Acute Assessment & Plan: 04/26: Will get PT/OT to see patient (3) Headache Status: Acute Assessment & Plan: 04/27: Will give toradol and phenergen Qualifiers: Qualified Codes: R51 - Headache (4) Normocytic anemia Status: Chronic Assessment & Plan: 04/27: At baseline likely 2/2 kidney disease and chronic disease, no signs of active bleeding (5) Deep tissue injury Status: Acute Assessment & Plan: 04/27: Off load pressure to left heal, discussed with patient not to set it up on the bed rail (6) DVT prophylaxis Status: Acute Assessment & Plan: - Lovenox Clinical Quality Measures DVT/VTE Risk/Contraindication: Risk Factor Score Per Nursin RFS Level Per Nursing on Admit: 3=High ANGELIKA REED MD Apr 27, 2019 20:16
--- NOTE | 2019-04-27 20:20 | Consultation-Cardiology ---
HPI-Cardiology Cardiology Consultation: Date of Consultation 04/27/19 Date of Admission Attending Physician Nguyễn Tavares MD Admitting Physician [place] Consulting Physician Abner CLARK MD HPI: Time Seen by a Provider: 12:00 Chief Complaint: Atrial fibrillation, positive troponin This is a 88-year-old gentleman, well-known to me from the office. He has history of prolonged episode of chest pain requiring PCI to the LAD in October 2018 with a drug-eluting stent. Patient also has history of atrial fibrillation. Previous severe chronic kidney disease and was briefly on dialysis and gradually was taken off dialysis. Chronic kidney disease stage IV. He was previously admitted for severe sepsis due to diverticulitis and required abdominal surgery and colostomy. He presented and was admitted due to worsening kidney function and likely dehydration. His kidney function has gradually improved. The patient continues to be in atrial fibrillation. He is on oral anticoagulation therapy with Eliquis. The patient also continues to be on Plavix for drug-eluting stent. Initial troponin is borderline abnormal. However the patient denies any chest pain and EKG does not reveal any acute ST-T wave abnormalities. Review of Systems-Cardiology Review of Systems Constitutional: As described under HPI; No As described under HPI, No no symptoms reported, No chills, No fever, No lightheadedness Eyes: No As described under HPI, No no symptoms reported, No blindness, No blurred vision, No contact lenses, No drainage, No decreased acuity, No foreign body sensation, No pain, No vision change Ears/Nose/Throat: No As described under HPI, No no symptoms reported, No chronic hearing loss, No ear discharge, No ear pain, No nasal drainage, No ulcerations Respiratory: No no symptoms reported; As described under HPI; No As described under HPI, No cough, No orthopnea, No shortness of breath, No SOB with excertion Cardiovascular: No no symptoms reported; As described under HPI; No As described under HPI, No chest pain, No edema, No irregular heart rate, No lightheadedness, No palpitations Gastrointestinal: No no symptoms reported, No As described under HPI, No abdomen distended, No abdominal pain, No blood streaked bowels, No constipation, No diarrhea, No nausea, No vomiting, No stool coloration changes Genitourinary: No As described under HPI, No burning, No dysuria, No discharge, No frequency, No flank pain, No hematuria, No urgency Skin: No rash, No skin related problems, No ulcerations Psychiatric/Neurological: No anxiety, No depression, No seizure, No focal weakness, No syncope Hematologic: No bleeding abnormalities LIX-Gbylxy-[id number] Hx Patient Social History Alcohol Use: Denies Use Recreational Drug Use: No Smoking Status: Unknown if Ever Smoked Type Used: Cigars, Cigarettes 2nd Hand Smoke Exposure: No Recent Foreign Travel: No Recent Infectious Disease Expo: No Hospitalization with Isolation: Denies Physical Abuse Screen: No Sexual Abuse: No Immunizations Up To Date Tetanus Booster (TDap): Unknown Date of Pneumonia Vaccine: Jan 13, 2014 Date of Influenza Vaccine: Jul 06, 2018 Past Medical History PMH As described under Assessment. Family Medical History Family History: Diabetes mellitus 19 MOTHER G8 BROTHER FH: pancreatic cancer 19 FATHER Allergies and Home Medications Allergies Coded Allergies: No Known Drug Allergies (Verified , 11/18/18) Home Medications Acetaminophen 650 Mg Tablet.er, 1,300 MG PO DAILY PRN for PAIN-MILD, (Reported) Apixaban 2.5 Mg Tablet, 2.5 MG PO DAILY, (Reported) Atorvastatin Calcium 10 Mg Tablet, 10 MG PO HS, (Reported) Calcitriol 0.25 Mcg Capsule, 0.25 MCG PO MoWeFr, (Reported) Calcium Carbonate 300 Mg Tab.chew, 600 MG PO TID, (Reported) Clopidogrel Bisulfate 75 Mg Tablet, 75 MG PO DAILY, (Reported) Furosemide 40 Mg Tablet, 40 MG PO DAILY, (Reported) Insulin Detemir 100 Unit/1 Ml Insuln.pen, 21 UNIT SQ DAILY, (Reported) Insulin Lispro 100 Unit/1 Ml Cartridge, 7 UNIT SQ TIDAC, (Reported) Metoprolol Succinate 100 Mg Tab.er.24h, 100 MG PO BID, (Reported) Nitroglycerin 0.4 Mg Tab.subl, 0.4 MG SL UD PRN for CHEST PAIN, (Reported) Pantoprazole Sodium 40 Mg Tablet.dr, 40 MG PO DAILY, (Reported) Potassium Chloride 20 Meq Tab.er.prt, 20 MEQ PO DAILY, (Reported) Prednisone 5 Mg Tablet, 5 MG PO BID, (Reported) Tamsulosin HCl 0.4 Mg Cap, 0.4 MG PO DAILY, (Reported) Trazodone HCl 50 Mg Tablet, 50 MG PO HS PRN for SLEEP, (Reported) Patient Home Medication List Home Medication List Reviewed: Yes Physical Exam-Cardiology Physical Exam Vital Signs/I&O 04/27/19 04/27/19 04/27/19 04/27/19 08:34 11:10 12:22 16:00 Temp 97.4 96.9 97.8 Pulse 89 81 97 86 Resp 18 18 22 B/P (MAP) 142/81 (101) 130/81 (97) 127/82 (97) Pulse Ox 97 96 99 O2 Delivery Room Air Room Air Room Air 04/27/19 00:00 Intake Total 2270 ml Output Total 1900 ml Balance 370 ml Capillary Refill : Less Than 3 SecondsLess Than 3 Seconds Constitutional: appears stated age, AAO x 3; No apparent distress; well- developed, well-nourished HEENT: PERRL; No normal ENT inspection, No TMs normal, No pharynx normal, No scleral icterus (R), No scleral icterus (L), No pale conjunctivae (R), No pale conjunctivae (L), No photophobia, No TM abnormal (R), No TM abnormal (L), No pharyngeal erythema, No tonsillar exudate, No other, No discharge, No EOMI; hearing is well preserved; No hard of hearing; oral hygience is good; No ulceration, No xanthelasmas are seen Neck: No non-tender, No full range of motion, No supple, No normal inspection, No carotid bruit, No limited range of motion, No lymphadenopathy (R), No lymphadenopathy (L), No tender lateral, No tender midline, No thyromegaly, No other; carotid pulses are 2 + bilaterally; No with good upstrokes Respiratory: No accessory muscle use, No respiratory distress, No chest tender, No chest expansion is symmetric; chest is bilaterally symmetric; No lungs clear to percussion; lungs clear to auscultation; No crackles, No rhonchi, No rales, No stridor, No wheezing, No pleural rub, No other Cardiovascular: No regular rate-rhythm; irregularly irregular; No extra beats, No parasternal heave is noted, No JVD, No edema, No bradycardia, No tachycardia, No point of maximal impulse, No cardiac thrills are palpable; S1 and S2; No gallop/S3, No gallop/S4, No diastolic murmur, No systolic murmur, No friction rub, No click, No other Gastrointestinal: No tender, No soft, No round, No distended, No pulsatile mass, No organomegaly, No guarding, No rebound, No tenderness, No hernia, No mass, No audible bowel sounds, No abnormal bowel sounds, No abdominal bruits, No spleenomegaly, No other Rectal: deferred Extremities: No normal range of motion, No non-tender, No normal inspection, No pedal edema, No calf tenderness, No normal capillary refill, No pelvis stable, No calf tenderness, No inflammation, No pedal edema, No slow capillary refill, No swelling, No other, No abrasion, No clubbing, No cyanosis, No ecchymosis, No laceration, No no lower extremity edema bilateral, No significant edema, No tenderness, No wound Neurologic/Psychiatric: no motor/sensory deficits, alert, normal mood/affect, oriented x 3, power is 5/5 both on sides Skin: No rash, No ulcerations Data Review Labs Laboratory Tests 04/26/19 20:46: Glucometer 287H 04/27/19 05:45: White Blood Count 9.0, Red Blood Count 3.72L, Hemoglobin 10.2L, Hematocrit 33L, Mean Corpuscular Volume 88, Mean Corpuscular Hemoglobin 27, Mean Corpuscular Hemoglobin Concent 31L, Red Cell Distribution Width 15.4H, Platelet Count 204, Mean Platelet Volume 10.1, Neutrophils (%) (Auto) 76H, Lymphocytes (%) (Auto) 16, Monocytes (%) (Auto) 7, Eosinophils (%) (Auto) 1, Basophils (%) (Auto) 0, Neutrophils # (Auto) 6.8, Lymphocytes # (Auto) 1.4, Monocytes # (Auto) 0.7, Eosinophils # (Auto) 0.1, Basophils # (Auto) 0.0, Sodium Level 134L, Potassium Level 4.9, Chloride Level 108H, Carbon Dioxide Level 17L, Anion Gap 9, Blood Urea Nitrogen 27H, Creatinine 2.48H, Estimat Glomerular Filtration Rate 25, BUN/Creatinine Ratio 11, Glucose Level 391H, Calcium Level 8.7 04/27/19 06:25: Glucometer 357H 04/27/19 11:08: Glucometer 194H 04/27/19 15:47: Glucometer 136H ECG Impression ECG Initial ECG Impression: Atrial Fibrillation A/P-Cardiology Assessment/Admission Diagnosis End-stage renal disease, acute on chronic kidney injury, Persistent atrial fibrillation, CAD, drug-eluting stent to LAD 11/19/2018, Borderline positive troponin, Anemia, Hyponatremia Plan End-stage renal disease, acute on chronic kidney injury. GFR 25. Improved since admission. Patient follows with Dr. Elayne Clark (nephrology) as outpatient. Persistent atrial fibrillation, currently on low dose Eliquis. Previously oral anticoagulation was held due to anemia and GI bleeding. On previous admission in December 2018, the patient was in sinus rhythm. CAD, drug-eluting stent to LAD 11/19/2018, continue Plavix. Atorvastatin and beta ernesto. Borderline positive troponin, likely due to severe systemic illness and end- stage renal disease. Patient did not have any chest pain. EKG did not reveal acute ST-T wave abnormalities. We will treat medically since coronary angiography with only worsen kidney function. Coronary angiography and PCI will only be indicated if the patient has significant non-STEMI or STEMI. Anemia, likely due to chronic kidney disease. Hyponatremia, likely due to diuretics. History of diverticulitis, with colostomy. Complicated patient with numerous medical issues. Thank you for your consultation. Please call me if you have any questions. Mireille Clark MD, FACP, FACC, FSCAI, FHRS, CCDS Interventional Cardiology Cardiac Electrophysiology Vascular Medicine and Endovascular Interventions Clinical Quality Measures DVT/VTE Risk/Contraindication: Risk Factor Score Per Nursin RFS Level Per Nursing on Admit: 3=High Abner CLARK MD Apr 27, 2019 20:20
[2019-04-27] MEDS: ATORVASTATIN 10 MG (LIPITOR) TABLET PO SCH (21:30)
[2019-04-28] MEDS: LACTATED RINGERS 1,000 ML IV SCH ×2 (03:33→11:15)
[2019-04-28 04:01] VITALS: BP 145/79
[2019-04-28] MEDS: inSUlin ASPART (NovoLOG) 1 UNIT/0.01 ML (CHARGE PER UNIT) SC SCH ×4 (05:59→11:51)
[2019-04-28 06:02] LABS: BASOPHILS % (AUTO) 0 % (0-10); EOSINOPHILS # (AUTO) 0.2 10^3/uL (0.0-0.3); EOSINOPHILS % (AUTO) 2 % (0-10); HEMATOCRIT 32 % (40-54); HEMOGLOBIN 9.8 G/DL (13.3-17.7); LYMPHOCYTES # (AUTO) 1.3 X 10^3 (1.0-4.0); LYMPHOCYTES % (AUTO) 16 % (12-44); MEAN CORPUSCULAR HEMOGLOBIN 27 PG (25-34); MEAN CORPUSCULAR HGB CONC 30 G/DL (32-36); MEAN CORPUSCULAR VOLUME 89 FL (80-99); MEAN PLATELET VOLUME 9.6 FL (7.4-10.4); MONOCYTES # (AUTO) 0.6 X 10^3 (0.0-1.0); MONOCYTES % (AUTO) 7 % (0-12); NEUTROPHILS # (AUTO) 6.2 X 10^3 (1.8-7.8); NEUTROPHILS % (AUTO) 75 % (42-75); PLATELET COUNT 215 10^3/uL (130-400); RED CELL DISTRIBUTION WIDTH 15.5 % (10.0-14.5); WHITE BLOOD COUNT 8.3 10^3/uL (4.3-11.0)
[2019-04-28 06:26] LABS: ALBUMIN 2.8 GM/DL (3.2-4.5); BILIRUBIN,TOTAL 0.3 MG/DL (0.1-1.0); CALCIUM 8.6 MG/DL (8.5-10.1); CREATININE SERUM 2.73 MG/DL (0.60-1.30); POTASSIUM 4.8 MMOL/L (3.6-5.0); TOTAL PROTEIN 5.5 GM/DL (6.4-8.2)
[2019-04-28 08:00] VITALS: BP 130/69
[2019-04-28] MEDS: MAGNESIUM OXIDE (MAG-OX)400 MG TAB PO SCH (08:39)
[2019-04-28] MEDS: CEPHALEXIN 250 MG (KEFLEX) CAP PO SCH ×2 (08:40→13:07)
[2019-04-28] MEDS: CALCIUM CARBONATE 500 MG (TUMS) TAB.CHEW PO SCH ×2 (08:40→13:07)
--- NOTE | 2019-04-28 08:40 | NUR ---
PRIOR TO A.M. MEDICATIONS PULSE WAS 85 BPM AND B/P WAS 130/69.
[2019-04-28] MEDS: meTOprolol SUCCINATE 100 MG (TOPROL XL) TAB PO SCH (08:41)
[2019-04-28] MEDS: TAMSULOSIN 0.4 MG (FLOMAX) CAP PO SCH (08:41)
[2019-04-28] MEDS: predniSONE 5 MG TAB PO SCH (08:42)
[2019-04-28] MEDS: CALCITRIOL 0.25 MCG (ROCALTROL) CAPSULE PO SCH (08:42)
[2019-04-28] MEDS: CLOPIDOGREL 75 MG (PLAVIX) TABLET PO SCH (08:43)
[2019-04-28] MEDS: PANTOPRAZOLE 40 MG (PROTONIX) TAB PO SCH (08:43)
[2019-04-28] MEDS: APIXABAN 2.5 MG (ELIQUIS) TABLET PO SCH (08:44)
[2019-04-28] MEDS: MUPIROCIN 2% OINT 22 GM (BACTROBAN) TUBE TOP SCH (08:45)
--- NOTE | 2019-04-28 11:08 | Cardiology Progress Note ---
Cardiology SOAP Progress Note Subjective: No cardiac complaints. Objective: I&O/Vital Signs 04/27/19 04/28/19 04/28/19 04/28/19 23:43 01:00 04:01 07:00 Temp 97.2 97.2 Pulse 98 104 95 110 Resp 20 22 B/P (MAP) 122/72 (89) 145/79 (101) Pulse Ox 97 96 O2 Delivery Room Air Room Air 04/28/19 04/28/19 08:00 08:00 Temp 98.3 Pulse 85 Resp 18 B/P (MAP) 130/69 (89) Pulse Ox 97 O2 Delivery Room Air Room Air 04/28/19 00:00 Intake Total 1188 ml Output Total 1650 ml Balance -462 ml Weight (Pounds): 194 Weight (Ounces): 2.0 Weight (Calculated Kilograms): 88.140338 Constitutional: appears stated age, AAO x 3; No apparent distress; well- developed, well-nourished Respiratory: No accessory muscle use, No respiratory distress, No chest tender, No chest expansion is symmetric; chest is bilaterally symmetric; No lungs clear to percussion; lungs clear to auscultation; No crackles, No rhonchi, No rales, No stridor, No wheezing, No pleural rub, No other Cardiovascular: No regular rate-rhythm; irregularly irregular; No extra beats, No parasternal heave is noted, No JVD, No edema, No bradycardia, No tachycardia, No point of maximal impulse, No cardiac thrills are palpable; S1 and S2; No gallop/S3, No gallop/S4, No diastolic murmur, No systolic murmur, No friction rub, No click, No other Gastrointestional: No tender, No soft, No round, No distended, No pulsatile mass, No organomegaly, No guarding, No rebound, No tenderness, No hernia, No mass, No audible bowel sounds, No abnormal bowel sounds, No abdominal bruits, No spleenomegaly, No other Extremities: No normal range of motion, No non-tender, No normal inspection, No pedal edema, No calf tenderness, No normal capillary refill, No pelvis stable, No calf tenderness, No inflammation, No pedal edema, No slow capillary refill, No swelling, No other, No abrasion, No clubbing, No cyanosis, No ecchymosis, No laceration, No no lower extremity edema bilateral, No significant edema, No tenderness, No wound Neurologic/Psychiatric: no motor/sensory deficits, alert, normal mood/affect, oriented x 3, power is 5/5 both on sides Skin: No rash, No ulcerations Results/Procedures: Labs Laboratory Tests 04/27/19 11:08: Glucometer 194H 04/27/19 15:47: Glucometer 136H 04/27/19 20:50: Glucometer 339H 04/28/19 05:24: Glucometer 234H 04/28/19 05:50: White Blood Count 8.3, Red Blood Count 3.65L, Hemoglobin 9.8L, Hematocrit 32L, Mean Corpuscular Volume 89, Mean Corpuscular Hemoglobin 27, Mean Corpuscular Hemoglobin Concent 30L, Red Cell Distribution Width 15.5H, Platelet Count 215, Mean Platelet Volume 9.6, Neutrophils (%) (Auto) 75, Lymphocytes (%) (Auto) 16, Monocytes (%) (Auto) 7, Eosinophils (%) (Auto) 2, Basophils (%) (Auto) 0, Neutrophils # (Auto) 6.2, Lymphocytes # (Auto) 1.3, Monocytes # (Auto) 0.6, Eosinophils # (Auto) 0.2, Basophils # (Auto) 0.0, Sodium Level 137, Potassium Level 4.8, Chloride Level 110H, Carbon Dioxide Level 17L, Anion Gap 10, Blood Urea Nitrogen 28H, Creatinine 2.73H, Estimat Glomerular Filtration Rate 22, BUN/Creatinine Ratio 10, Glucose Level 262H, Calcium Level 8.6, Corrected Calcium 9.6, Total Bilirubin 0.3, Aspartate Amino Transf (AST/SGOT) 13, Alanine Aminotransferase (ALT/SGPT) 14, Alkaline Phosphatase 87, Total Protein 5.5L, Albumin 2.8L A/P: Assessment/Dx: End-stage renal disease, acute on chronic kidney injury, Persistent atrial fibrillation, CAD, drug-eluting stent to LAD 11/19/2018, Borderline positive troponin, Anemia, Hyponatremia Plan: End-stage renal disease, acute on chronic kidney injury. GFR 25. Improved since admission. Patient follows with Dr. Elayne Clark (nephrology) as outpatient. Persistent atrial fibrillation, currently on low dose Eliquis. Previously oral anticoagulation was held due to anemia and GI bleeding. On previous admission in December 2018, the patient was in sinus rhythm. This morning the patient had palpitations. Already on Toprol XL 100mg bid. CAD, drug-eluting stent to LAD 11/19/2018, continue Plavix. Atorvastatin and beta ernesto. Borderline positive troponin, likely due to severe systemic illness and end- stage renal disease. Patient did not have any chest pain. EKG did not reveal acute ST-T wave abnormalities. We will treat medically since coronary angiography with only worsen kidney function. Coronary angiography and PCI will only be indicated if the patient has significant non-STEMI or STEMI. I discussed with Dr. Swenson as well. Anemia, likely due to chronic kidney disease. Hyponatremia, likely due to diuretics. History of diverticulitis, with colostomy. Complicated patient with numerous medical issues. Thank you for your consultation. Please call me if you have any questions. Mireille Clark MD, FACP, FACC, FSCAI, FHRS, CCDS Interventional Cardiology Cardiac Electrophysiology Vascular Medicine and Endovascular Interventions Abner CLARK MD Apr 28, 2019 11:08
--- NOTE | 2019-04-28 11:37 | Discharge Summary ---
Diagnosis/Chief Complaint Date of Admission Apr 25, 2019 at 16:55 Date of Discharge 04/28/2019 Admission Diagnosis Admission Diagnosis See problem list Discharge Diagnosis See below Problems/Diagnosis: (1) Acute renal failure superimposed on stage 3 chronic kidney disease Assessment & Plan: 04/26: Will continue to trend, patient will likely need urgent f.u with renal as outpatient 04/27: trending down, seems to be at baseline 04/28: Patient will have close f.u with Nephrology following discharge to Qualifiers: Qualified Codes: N17.9 - Acute kidney failure, unspecified; N18.3 - Chronic kidney disease, stage 3 (moderate) Status: Acute (2) Generalized weakness Assessment & Plan: 04/26: Will get PT/OT to see patient Status: Acute (3) Headache Assessment & Plan: 04/27: Will give toradol and phenergen Qualifiers: Qualified Codes: R51 - Headache Status: Resolved Resolution Date/Time: 04/28/19 @ 16:39 (4) Normocytic anemia Assessment & Plan: 04/27: At baseline likely 2/2 kidney disease and chronic disease, no signs of active bleeding Status: Chronic (5) Deep tissue injury Assessment & Plan: 04/27: Off load pressure to left heal, discussed with patient not to set it up on the bed rail Status: Acute (6) Chronic atrial fibrillation Assessment & Plan: 04/28: Seen by Dr Clark during admission, no adjustment in meds because patient is on the highest dose of beta ernesto. Dr Clark will follow patient as outpatient Status: Chronic (7) DVT prophylaxis Assessment & Plan: - Lovenox Status: Acute Discharge Summary-Simple/Stand Consultations Dr Clark: Cardiology Discharge Physical Examination Allergies: Coded Allergies: No Known Drug Allergies (Verified , 11/18/18) Vitals & I&Os Vital Sign - Last 12Hours Date Time Temp Pulse Resp B/P (MAP) Pulse Ox O2 Delivery O2 Flow Rate FiO2 04/28/19 08:00 98.3 85 18 130/69 (89) 97 Room Air Intake and Output 04/28/19 00:00 Intake Total 1188 ml Output Total 1650 ml Balance -462 ml General Appearance: Alert, Oriented X3, Cooperative, No Acute Distress HEENT: Mucous Memb Moist/[place] Respiratory: Clear to Auscultation, Normal Air Movement Cardiovascular: Regular Rate, No Murmurs Abdominal: Normal Bowel Sounds, Soft, No Tenderness, No Masses, Other (Colostomy functioning normally) Extremities: No Edema, No Tenderness/Swelling Skin: Other (DTI to left heal) Neuro: Strength at 5/5 X4 Ext, Cranial Nerves 3-12 NL Psych/Mental Status: Mental Status NL, Mood NL Hospital Course Was the Problem List Reviewed?: Yes See final discharge diagnosis. Discussion & Recommendations 88 yo M that presented with generalized weakness and found to have bump in Cr. He was started on gentle IVF hydration and improved to his baseline of 2.3. He was found to have a DTI to his left heal and has off loading boots placed. Patient's headache resolved after doses of toradol and phenergen. He had a couple runs of atrial fibrillation and was seen by cardiology during admission. No medication changes were made at this time. Patient was discharged to SNF for his remaining days and in the meantime his daughter and him will look for Assisted living facility. He will be discharged with close f.u with PCP and nephrology and cardiology. Discharge Condition at discharge Poor prognosis Instructions to patient/family Please see electronic discharge instructions given to patient. Discharge Medications Reviewed and agree with Discharge Medication list on patient's Discharge Instruction sheet Clinical Quality Measures DVT/VTE Risk/Contraindication: Risk Factor Score Per Nursin RFS Level Per Nursing on Admit: 3=High Copy Copies To 1: Eva CABELLO APRN GAULT, HOLLY R MD Apr 28, 2019 11:37
[2019-04-28] MEDS ORDERED: CEPH250C PO (11:40)
--- NOTE | 2019-04-28 11:53 | Discharge Inst-Skilled Nursing ---
Discharge Inst-Skilled NF Reconcile Patient Problems Problems Reviewed?: Yes Patient Instructions Patient Problems: Acute on Chronic Renal Failure Generalized Weakness Chronic Atrial Fibrillation IDDM Colostomy Goal: - Improved strength and endurance - [place] with ADLs Patient Instructions: - Make sure to complete antibiotics Consult/Follow Up/Orders Follow up appt.: - Eva Gottlieb will come and see you at [facility] - Appt with nephrology SE[facility] Skilled NF Admit to: [facility] I certify that SNF services are required to be given on an inpatient basis because of the above named patient's need for alf care on a continuing basis for the conditions(s) for which he/she was receiving inpatient hospital services prior to his/her transfer to the SNF. Shelter Facility Order: Nursing Services, Communications Senior Associate-Evaluate & Treat, Physical Therapy-Evaluate & Treat, Speech Language-Evaluate & Treat Oxygen Delivery Method: Room Air Discharge Diet: Cardiac Diet New & Resume Previous Orders New & Resume Previous Orders - Colostomy Care - Heal off loading due to DTI Discharge Medications New, Converted or Re-Newed RX: Transmitted to Pharmacy New Medications: Cephalexin (Cephalexin) 250 Mg Capsule 500 MG PO TID for 3 Days, #9 CAP Continued Medications: Acetaminophen (Tylenol Arthritis) 650 Mg Tablet.er 1300 MG PO DAILY PRN for PAIN-MILD, TAB Acetaminophen (Tylenol Arthritis) 650 Mg Tablet.er 1300 MG PO DAILY PRN for PAIN-MILD, TAB (This prescription has been renewed) Apixaban (Eliquis) 2.5 Mg Tablet 2.5 MG PO DAILY, TAB Atorvastatin Calcium (Atorvastatin Calcium) 10 Mg Tablet 10 MG PO HS, TAB Calcitriol (Calcitriol) 0.25 Mcg Capsule 0.25 MCG PO MoWeFr, CAP (This prescription has been renewed) Calcium Carbonate (Tums Smoothies) 300 Mg Tab.chew 600 MG PO TID, TAB Clopidogrel Bisulfate (Plavix) 75 Mg Tablet 75 MG PO DAILY, TAB Furosemide (Furosemide) 40 Mg Tablet 40 MG PO DAILY, TAB Insulin Detemir (Levemir Flextouch) 100 Unit/1 Ml Insuln.pen 21 UNIT SQ DAILY, EA Insulin Lispro (Humalog) 100 Unit/1 Ml Cartridge 7 UNIT SQ TIDAC, EA Metoprolol Succinate (Metoprolol Succinate) 100 Mg Tab.er.24h 100 MG PO BID, TAB Nitroglycerin (Nitroglycerin) 0.4 Mg Tab.subl 0.4 MG SL UD PRN for CHEST PAIN, TAB Pantoprazole Sodium (Pantoprazole Sodium) 40 Mg Tablet.dr 40 MG PO DAILY, TAB Potassium Chloride (Potassium Chloride) 20 Meq Tab.er.prt 20 MEQ PO DAILY Prednisone (Prednisone) 5 Mg Tablet 5 MG PO BID, TAB Tamsulosin HCl (Flomax) 0.4 Mg Cap 0.4 MG PO DAILY, CAP Discontinued Medications: Trazodone HCl (Trazodone HCl) 50 Mg Tablet 50 MG PO HS PRN for SLEEP, TAB Angelika Swenson Apr 28, 2019 11:43 ANGELIKA SWENSON MD Apr 28, 2019 11:49
--- NOTE | 2019-04-28 12:05 | NUR ---
REPORT CALLED TO [facility] AT THIS TIME (PER SHOLA WALLIS) , SPOKE WITH ROBERT, NURSE WHO WILL ASSUME CARE OF THIS PATIENT WHEN HE ARRIVES TO THIS FACILITY.
[2019-04-28 12:24] VITALS: BP 148/73
--- NOTE | 2019-04-29 14:12 | NUR ---
CM/SS. Patient discharged to new Medicare skilled placement with [facility] via their transport. CARE Assessment was current. Daughter was updated of all arrangements. Unit RN aware. Patient/daughter exploring assisted living environment for post skilled therapy.
== END 2019-04-28 13:30 | DRG 683 ==
LOC: EDUNIT# 13:05 → ER 13:06 → UNDOADMOB 15:03 → 4TH 15:03 → INTOOBSV 04-25 16:55 → OBSVTOIN 04-25 16:55 → UNDODISIN 04-28 13:30
PROVIDERS: ADMIT Internal Medicine; ATTEND Internal Medicine
DX: N17.9 Acute kidney failure, unspecified (principal); I12.9 Hypertensive chronic kidney disease with stage 1 through stage 4 chronic kidney disease, or unspecified chronic kidney disease; N18.3 Chronic kidney disease, stage 3 (moderate); E11.9 Type 2 diabetes mellitus without complications; I25.10 Atherosclerotic heart disease of native coronary artery without angina pectoris; I48.1 Persistent atrial fibrillation; N40.0 Benign prostatic hyperplasia without lower urinary tract symptoms; R53.1 Weakness; Z66 Do not resuscitate; L89.629 Pressure ulcer of left heel, unspecified stage; H35.30 Unspecified macular degeneration; K21.9 Gastro-esophageal reflux disease without esophagitis; M06.9 Rheumatoid arthritis, unspecified; M19.91 Primary osteoarthritis, unspecified site; L40.9 Psoriasis, unspecified; R06.00 Dyspnea, unspecified; Z90.49 Acquired absence of other specified parts of digestive tract; Z93.3 Colostomy status; Z87.891 Personal history of nicotine dependence; Z95.5 Presence of coronary angioplasty implant and graft; Z79.01 Long term (current) use of anticoagulants
CPT/HCPCS: 36415; 70450; 71045; 80048; 80053; 80061; 81000; 82962; 83690; 83735; 83874; 83880; 84484; 85025; 85610; 85730; 93005; 93041; 96374; G0378

== ENCOUNTER → 2019-06-04 | Outpatient (CLI) | payer MEDICARE ==
[~2019-06-04] MED LIST changes: +CALC-778 PO; +CEPH250C PO; +CLOP75TA69 PO; +FURO40TA4 PO; +METO-395 PO; +NITR0.4T39 SL; +PAMI30VI8 SQ; +POTA20TA15 PO; +TRAZ-222 PO
== END ==
LOC: WOUNDCARE 08:06
PROVIDERS: ATTEND Surgery
DX: L89.620 Pressure ulcer of left heel, unstageable (principal); E11.621 Type 2 diabetes mellitus with foot ulcer; E11.22 Type 2 diabetes mellitus with diabetic chronic kidney disease; N18.4 Chronic kidney disease, stage 4 (severe); E11.65 Type 2 diabetes mellitus with hyperglycemia; R68.89 Other general symptoms and signs
CPT/HCPCS: 99214

== ENCOUNTER → 2019-06-11 | Outpatient (CLI) | payer MEDICARE | LOC: WOUNDCARE 09:25 | PROVIDERS: ATTEND Surgery | DX: E11.621 Type 2 diabetes mellitus with foot ulcer (principal); E11.65 Type 2 diabetes mellitus with hyperglycemia; E11.52 Type 2 diabetes mellitus with diabetic peripheral angiopathy with gangrene; E11.22 Type 2 diabetes mellitus with diabetic chronic kidney disease; N18.4 Chronic kidney disease, stage 4 (severe); I96 Gangrene, not elsewhere classified; R68.89 Other general symptoms and signs | CPT/HCPCS: 99213 ==

== ENCOUNTER → 2019-06-18 | Outpatient (CLI) | payer MEDICARE | LOC: WOUNDCARE 09:25 | PROVIDERS: ATTEND Surgery | DX: L89.620 Pressure ulcer of left heel, unstageable (principal); E11.621 Type 2 diabetes mellitus with foot ulcer; E11.65 Type 2 diabetes mellitus with hyperglycemia; E11.22 Type 2 diabetes mellitus with diabetic chronic kidney disease; N18.4 Chronic kidney disease, stage 4 (severe); E11.52 Type 2 diabetes mellitus with diabetic peripheral angiopathy with gangrene; R68.89 Other general symptoms and signs | CPT/HCPCS: 11042 ==

== ENCOUNTER → 2019-06-25 | Outpatient (CLI) | payer MEDICARE | LOC: WOUNDCARE 09:56 | PROVIDERS: ATTEND Surgery | DX: E11.621 Type 2 diabetes mellitus with foot ulcer (principal); E11.65 Type 2 diabetes mellitus with hyperglycemia; E11.52 Type 2 diabetes mellitus with diabetic peripheral angiopathy with gangrene; E11.22 Type 2 diabetes mellitus with diabetic chronic kidney disease; L89.620 Pressure ulcer of left heel, unstageable; N18.4 Chronic kidney disease, stage 4 (severe); I96 Gangrene, not elsewhere classified; R68.89 Other general symptoms and signs | CPT/HCPCS: 99212 ==

== ENCOUNTER 2019-08-26 10:38 | Inpatient (IN) | payer MEDICARE ==
[~2019-08-26] VITALS: Ht 170.2 cm; Wt 88.1 kg
[~2019-08-26 10:38] MED LIST changes: -GLIM4TAB PO; +GLIM4TAB3 PO; -MELA3TAB PO; +MELA3TAB65 PO; -METO-387 PO; -METO-395 PO; +MTP100TCR PO; +MTP25TSR PO; -TAMS0.4C98 PO; +TMSL.4C PO; -TRAZ-222 PO; +TRZ50T PO
--- NOTE | 2019-08-26 12:15 | ED Cardiac General ---
History of Present Illness General Chief Complaint: Lower Extremity Stated Complaint: LEG SWELLING Source: patient Exam Limitations: no limitations (BRICE SANTOYOMED STUDENT) History of Present Illness Date Seen by Provider: Aug 26, 2019 Time Seen by Provider: 11:54 Initial Comments Pt complains of leg swelling that has progressed over the past month, made worse when he is more active/upright. Pt also complains of increasing shortness of breath during ADLs of 2 days that has been constant. States his shortness of breath improves with rest and is made worse with activity and is associated with chest congestion and leg swelling. Denies fever, chills, headache, nausea, vomiting, chest pain. Timing/Duration: 1-2 days Severity: mild Activities at Onset: activity Prior CP/Workup: cardiac cath, echocardiography Modifying Factors: worse with exercise, worse with movement; improves with rest Associated Systoms: No Chest Pain, No Cough, No Fever/Chills, No Nausea/Vomiting; Shortness of Air (BRICE SANTOYO,MED STUDENT) Allergies and Home Medications Allergies Coded Allergies: No Known Drug Allergies (Verified , 11/18/18) Home Medications Acetaminophen 650 Mg Tablet.er, 1,300 MG PO DAILY PRN for PAIN-MILD, (Reported) Apixaban 2.5 Mg Tablet, 2.5 MG PO DAILY, (Reported) Atorvastatin Calcium 10 Mg Tablet, 10 MG PO HS, (Reported) Calcitriol 0.25 Mcg Capsule, 0.25 MCG PO MoWeFr, (Reported) Calcium Carbonate 300 Mg Tab.chew, 600 MG PO TID, (Reported) Cephalexin 250 Mg Capsule, 500 MG PO TID Prescribed by: ANGELIKA REED on 04/28/19 1140 Clopidogrel Bisulfate 75 Mg Tablet, 75 MG PO DAILY, (Reported) Furosemide 40 Mg Tablet, 40 MG PO DAILY, (Reported) Insulin Detemir 100 Unit/1 Ml Insuln.pen, 21 UNIT SQ DAILY, (Reported) Insulin Lispro 100 Unit/1 Ml Cartridge, 7 UNIT SQ TIDAC, (Reported) Metoprolol Succinate 100 Mg Tab.er.24h, 100 MG PO BID, (Reported) Nitroglycerin 0.4 Mg Tab.subl, 0.4 MG SL UD PRN for CHEST PAIN, (Reported) Pantoprazole Sodium 40 Mg Tablet.dr, 40 MG PO DAILY, (Reported) Potassium Chloride 20 Meq Tab.er.prt, 20 MEQ PO DAILY, (Reported) Prednisone 5 Mg Tablet, 5 MG PO BID, (Reported) Tamsulosin HCl 0.4 Mg Cap, 0.4 MG PO DAILY, (Reported) Patient Home Medication List Home Medication List Reviewed: Yes (BRICE SANTOYO MED STUDENT) Home Medication List Reviewed: Yes (MARILEE PRIDE MD) Review of Systems Review of Systems Constitutional: No chills, No fever, No malaise EENTM: No Eye Pain, No Ear Pain, No Mouth Pain, No Nose Pain, No Throat Pain Respiratory: Denies Cough; Shortness of Air, SOA With Exertion; Denies SOA at Rest Cardiovascular: Denies Chest Pain; Edema, Irregular Heart Rate; Denies Lightheadedness, Denies Syncope Gastrointestinal: Denies Abdomen Distended, Denies Abdominal Pain, Denies Constipated, Denies Diarrhea, Denies Difficulty Swallowing, Denies Nausea, Denies Vomiting; Other (colostomy) Genitourinary: Denies Incontinence, Denies Pain Musculoskeletal: back pain, joint pain, muscle pain, muscle stiffness Skin: dryness, lumps (b/l cysts overlying proximal ulnas ), rash (erythamatous R LE ) Endocrine: Intolerance to Cold; Denies Intolerance to Heat (BRICE SANTOYO MED STUDENT) Respiratory: SOA With Exertion; Denies Wheezing Cardiovascular: Denies Chest Pain; Edema Skin: change in color, dryness (MARILEE PRIDE MD) All Other Systems Reviewed Negative Unless Noted: Yes (MARILEE PRIDE MD) Past Khuarpu-Pagpha-Vhizzs Hx Past Med/Social Hx: Reviewed Nursing Past Med/Soc Hx (MARILEE PRIDE MD) Patient Social History Alcohol Beverage of Choice: Beer, Wine Type Used: Cigars, Cigarettes Former Smoker, Quit: Feb 20, 1958 2nd Hand Smoke Exposure: No Recent Hopitalizations: No (BRICE SANTOYO MED STUDENT) Immunizations Up To Date Tetanus Booster (TDap): Unknown PED Vaccines UTD: No Date of Pneumonia Vaccine: Jan 13, 2014 Date of Influenza Vaccine: Jul 06, 2018 (BRICE SANTOYO MED STUDENT) Seasonal Allergies Seasonal Allergies: No (BRICE SANTOYO MED STUDENT) Past Medical History Surgeries: Yes Coronary Stent, Orthopedic Respiratory: No Currently Using CPAP: No Currently Using BIPAP: No Cardiac: Yes Coronary Artery Disease, Hypertension Neurological: No Genitourinary: Yes Benign Prostatic Hyperpl, Kidney Infection, Renal Failure Gastrointestinal: Yes Abdominal Hernia, Gastroesophageal Reflux, Gastrointestinal Bleed, Diverticulosis Musculoskeletal: Yes Arthritis, Rheumatoid Arthritis Endocrine: Yes Diabetes, Non-Insulin dep HEENT: Yes Macular Degeneration Cancer: No Psychosocial: No Integumentary: No Psoriasis Blood Disorders: No Adverse Reaction/Blood Tranf: No (BRICE SANTOYO MED STUDENT) Family Medical History Reviewed Nursing Family Hx (MARILEE PRIDE MD) Diabetes mellitus 19 MOTHER G8 BROTHER FH: pancreatic cancer 19 FATHER Heart Disease (brother), CAD Over 55 Years Old (brother ), Diabetes (BRICE SANTOYO MED STUDENT) Physical Exam Vital Signs Vital Signs - First Documented 08/26/19 11:20 Temp 37.0 Pulse 95 Resp 20 B/P (MAP) 127/78 (94) Pulse Ox 97 O2 Delivery Room Air (MARILEE PRIDE MD) Vital Signs Capillary Refill : (BRICE SANTOYO MED STUDENT) Height, Weight, BMI Height: 5'7.00" Weight: 194lbs. 2.0oz. [id number]; 30.3 BMI Method:Stated General Appearance: No Apparent Distress, Chronically ill, Obese HEENT: PERRL/EOMI, TMs Normal, Pharynx Normal, Moist Mucous Membranes Neck: Non Tender, Supple, Tender Lateral (TTP L anterior neck ) Respiratory: Chest Non Tender, Lungs Clear, Normal Breath Sounds, No Accessory Muscle Use, No Respiratory Distress Cardiovascular: No Regular Rate, Rhythm, No No Edema; No Murmur, Irregularly Irregular Gastrointestinal: Non Tender, Soft Extremity: Calf Tenderness, Inflammation (L LE ), Pedal Edema (+4 pitting), Swelling (b/l LE ) Neurologic/Psychiatric: Alert, Oriented x3, Normal Mood/Affect Skin: Erythema (L LE ), Pallor Lymphatic: No Adenopathy (supra/infraclavicular, anterior/posterior cervical ) (BRICE SANTOYO,MED STUDENT) General Appearance: No Apparent Distress, WD/WN Neck: Non Tender, Supple Respiratory: Lungs Clear, Normal Breath Sounds Cardiovascular: No Murmur, Irregularly Irregular Gastrointestinal: Non Tender, Soft Neurologic/Psychiatric: Alert, Oriented x3 Skin: Warm/Dry, Erythema (L LE ) (MARILEE PRIDE MD) Focused Exam Lactate Level 08/26/19 11:42: Lactic Acid Level 1.71 (MARILEE PRIDE MD) Lactic Acid Level Laboratory Tests Test 08/26/19 11:42 Lactic Acid Level 1.71 MMOL/L (0.50-2.00) (MARILEE PRIDE MD) Progress/Results/Core Measures Results/Orders Lab Results Laboratory Tests Test 08/26/19 11:42 Range/Units White Blood Count 11.5 H 4.3-11.0 10^3/uL Red Blood Count 4.46 4.35-5.85 10^6/uL Hemoglobin 12.4 L 13.3-17.7 G/DL Hematocrit 40 40-54 % Mean Corpuscular Volume 89 80-99 FL Mean Corpuscular Hemoglobin 28 25-34 PG Mean Corpuscular Hemoglobin Concent 31 L 32-36 G/DL Red Cell Distribution Width 16.8 H 10.0-14.5 % Platelet Count 162 130-400 10^3/uL Mean Platelet Volume 10.4 7.4-10.4 FL Neutrophils (%) (Auto) 72 42-75 % Lymphocytes (%) (Auto) 17 12-44 % Monocytes (%) (Auto) 10 0-12 % Eosinophils (%) (Auto) 1 0-10 % Basophils (%) (Auto) 0 0-10 % Neutrophils # (Auto) 8.3 H 1.8-7.8 X 10^3 Lymphocytes # (Auto) 2.0 1.0-4.0 X 10^3 Monocytes # (Auto) 1.1 H 0.0-1.0 X 10^3 Eosinophils # (Auto) 0.1 0.0-0.3 10^3/uL Basophils # (Auto) 0.0 0.0-0.1 10^3/uL Sodium Level 133 L 135-145 MMOL/L Potassium Level 4.1 3.6-5.0 MMOL/L Chloride Level 103 98-107 MMOL/L Carbon Dioxide Level 18 L 21-32 MMOL/L Anion Gap 12 5-14 MMOL/L Blood Urea Nitrogen 70 H 7-18 MG/DL Creatinine 3.11 H 0.60-1.30 MG/DL Estimat Glomerular Filtration Rate 19 BUN/Creatinine Ratio 23 Glucose Level 175 H 70-105 MG/DL Lactic Acid Level 1.71 0.50-2.00 MMOL/L Calcium Level 9.1 8.5-10.1 MG/DL Corrected Calcium 9.3 8.5-10.1 MG/DL Magnesium Level 1.7 1.6-2.4 MG/DL Total Bilirubin 1.3 H 0.1-1.0 MG/DL Aspartate Amino Transf (AST/SGOT) 21 5-34 U/L Alanine Aminotransferase (ALT/SGPT) 35 0-55 U/L Alkaline Phosphatase 107 40-136 U/L C-Reactive Protein High Sensitivity 10.83 H 0.00-0.50 MG/DL B-Type Natriuretic Peptide 339.7 H <100.0 PG/ML Total Protein 6.8 6.4-8.2 GM/DL Albumin 3.7 3.2-4.5 GM/DL (MARILEE PRIDE MD) My Orders Orders - MARILEE PRIDE MD Ekg Tracing (08/26/19 12:16) Chest 1 View, Ap/Pa Only (08/26/19 12:16) BNP (08/26/19 12:16) Cbc With Automated Diff (08/26/19 12:16) Comprehensive Metabolic Panel (08/26/19 12:16) Hs C Reactive Protein (08/26/19 12:16) Magnesium (08/26/19 12:16) Lactic Acid Analyzer (08/26/19 12:52) Blood Culture (08/26/19 12:52) Ceftriaxone For Iv Use (Rocephin For I (08/26/19 14:15) (MARILEE PRIDE MD) Medications Given in ED Current Medications Medications Dose Ordered Sig/Adrienne Route Start Time Stop Time Status Last Admin Dose Admin Ceftriaxone Sodium 1000 mg/ Sterile Water 10 ml @ 200 mls/hr ONCE ONCE IV 08/26/19 14:15 08/26/19 14:17 DC 08/26/19 14:39 200 MLS/HR (MARILEE PRIDE MD) Vital Signs/I&O 08/26/19 11:20 Temp 37.0 Pulse 95 Resp 20 B/P (MAP) 127/78 (94) Pulse Ox 97 O2 Delivery Room Air (MARILEE PRIDE MD) Progress Progress Note : Progress Note Seen and evaluated patient and agree with above except as indicated. I have directed the plan of care. Patient is here with complaint of shortness of air as well as pain in the left lower extremity with redness that is increasing. He is having going on over the last couple of days. 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 Denies nausea or vomiting. Denies chest pain. Does have edema to the lower extremities. Lungs are clear to auscultation bilateral and he is an atrial fibrillation with rate controlled in the 80s and 90s. Left lower extremity is quite red and warm from the ankle to the knee and this is different than the right. He is on Eliquis. Bilateral edema noted. Plan is to check labs, chest x-ray and EKG. Blood cultures and lactic acid added when awake Was elevated and he had gross elevation and CRP. I do believe his left lower extremity cellulitis. This was discussed with Dr. Wilde at 1422. She accepts patient for admission, inpatient status. We will initiate Rocephin and vancomycin due to culture history including one that was MRSA positive. She requested surgery consult and this was placed with Dr. Chaudhry and I spoke with him at 1425. All findings concerns discussed with patient who agreed with plan. We will also consult cardiology and Dr. Clark is his primary calculus tutor. (MARILEE PRIDE MD) Initial ECG Impression Date: Aug 26, 2019 Initial ECG Impression Time: 11:32 Initial ECG Rate: 94 Initial ECG Rhythm: A Fib/Flutter Initial ECG Impression: Atrial Fibrillation Comment Atrial fibrillation with leftward axis. No evidence of ST elevation CO. Similar to previous of 04/24/19. Interpreted by me. (MARILEE PRIDE MD) Diagnostic Imaging Diagonstic Imaging: Xray Plain Films/CT/US/NM/MRI: chest Comments [facility] POS [place], [place] POS NAME: JEANMARIE CABRERA [facility] REC#: [id number] PT STATUS: REG ER : 1930 PHYSICIAN: MARILEE PRIDE MD ADMIT DATE: 08/26/19/ER Draft POSDate of Exam:08/26/19 CHEST 1 VIEW, AP/PA ONLY INDICATION: Leg swelling. Frontal chest obtained at 12:38 p.m. and is compared to 04/24/2019. Heart is normal in size. There is poor inspiration which limits the study. There is no pneumothorax or pleural fluid. There is some minimal left basilar atelectasis. IMPRESSION: Limited study with poor aspiration. Minimal left basilar atelectasis. No overt consolidation, pleural fluid, or pneumothorax. Dictated on workstation # [id number] Dict: 08/26/19 1344 Trans: 08/26/19 1346 [id number] Interpreted by: YOVANY CHÁVEZ MD Electronically signed by: (MARILEE PRIDE MD) Departure Communication (Admissions) Time/Spoke to Admitting Phy: 14:22 Time/Spoke to Consulting Phy: 14:25 (MARILEE PRIDE MD) Impression Primary Impression: Left leg cellulitis Additional Impression: Chronic renal failure Qualified Codes: N18.9 - Chronic kidney disease, unspecified Disposition: ADMITTED INPATIENT Condition: Stable Admissions Decision to Admit Reason: Admit from ER (General) Decision to Admit/Date: Aug 26, 2019 Time/Decision to Admit Time: 14:22 (MARILEE PRIDE MD) Departure-Patient Inst. Referrals: [facility] (PCP) Primary Care Physician IGNACIA TIMMONS (Family) Primary Care Physician BRICE SANTOYO,MED STUDENT Aug 26, 2019 12:15 MARILEE SPICER MD Aug 26, 2019 14:34 POS
[2019-08-26 12:24] LABS: BASOPHILS % (AUTO) 0 % (0-10); EOSINOPHILS # (AUTO) 0.1 10^3/uL (0.0-0.3); EOSINOPHILS % (AUTO) 1 % (0-10); HEMATOCRIT 40 % (40-54); HEMOGLOBIN 12.4 G/DL (13.3-17.7); LYMPHOCYTES % (AUTO) 17 % (12-44); MEAN CORPUSCULAR HEMOGLOBIN 28 PG (25-34); MEAN CORPUSCULAR HGB CONC 31 G/DL (32-36); MEAN CORPUSCULAR VOLUME 89 FL (80-99); MEAN PLATELET VOLUME 10.4 FL (7.4-10.4); MONOCYTES # (AUTO) 1.1 X 10^3 (0.0-1.0); MONOCYTES % (AUTO) 10 % (0-12); NEUTROPHILS # (AUTO) 8.3 X 10^3 (1.8-7.8); NEUTROPHILS % (AUTO) 72 % (42-75); PLATELET COUNT 162 10^3/uL (130-400); RED CELL DISTRIBUTION WIDTH 16.8 % (10.0-14.5); WHITE BLOOD COUNT 11.5 10^3/uL (4.3-11.0)
[2019-08-26 12:37] LABS: ALBUMIN 3.7 GM/DL (3.2-4.5); BILIRUBIN,TOTAL 1.3 MG/DL (0.1-1.0); CALCIUM 9.1 MG/DL (8.5-10.1); CREATININE SERUM 3.11 MG/DL (0.60-1.30); MAGNESIUM 1.7 MG/DL (1.6-2.4); POTASSIUM 4.1 MMOL/L (3.6-5.0); TOTAL PROTEIN 6.8 GM/DL (6.4-8.2)
--- NOTE | 2019-08-26 13:46 | Diagnostic Imaging Report ---
INDICATION: Leg swelling. Frontal chest obtained at 12:38 p.m. and is compared to 04/24/2019. Heart is normal in size. There is poor inspiration which limits the study. There is no pneumothorax or pleural fluid. There is some minimal left basilar atelectasis. IMPRESSION: Limited study with poor aspiration. Minimal left basilar atelectasis. No overt consolidation, pleural fluid, or pneumothorax. Dictated by: Dictated on workstation # [id number]
[2019-08-26] MEDS ORDERED: cefTRIAXone FOR IV USE 1,000 MG in WATER (STERILE) FOR INJECTION 10 ML IV ONE (14:15)
--- NOTE | 2019-08-26 16:00 | NUR ---
Dony Cabrera] admitted to room 408-1, with an admitting diagnosis of Cellulitis to [facility], on 08/26/19 from [place] via , accompanied by .DONY CABRERA introduced to surroundings, call light, bed controls, phone, TV, temperature control, lights, meal times, smoking policy, visitor policy, side rail policy, bathrooms and showers. Patient Rights given to patient in the handbook.DONY CABRERA verbalizes understanding that [facility] is not responsible for the loss or damage to any personal effects or valuables that are kept in the patients posession during their hospitalization. DONY CABRERA verbalizes understanding of Interdisciplinary Patient Education. Patient and/or family were informed about the Rapid Response Team and its purpose.
[2019-08-26 16:19] VITALS: BP 127/78
--- NOTE | 2019-08-26 16:32 | Consultation-Cardiology ---
HPI-Cardiology Cardiology Consultation: Date of Consultation 08/26/19 Date of Admission Attending Physician Trixie Wilde DO Admitting Physician [place] Consulting Physician Abner CLARK MD HPI: Time Seen by a Provider: 16:00 Chief Complaint: Cellulitis This is a 89-year-old gentleman who follows with me in the office. He has history of end-stage renal disease and was on dialysis. He was subsequently taken off dialysis. He has history of paroxysmal atrial fibrillation and takes Eliquis and metoprolol. He was previously on flecainide which was discontinued. He also has history of rheumatoid arthritis and takes prednisone. He has history of diabetes. He lives in [facility]. Patient had coronary angiography and PCI in October 2018. Drug-eluting stent was done. He presents for acute lower extremity cellulitis requiring IV antibiotics. He denies any chest pain, palpitations, syncope or near syncope. He complains of mild shortness of breath yesterday. He denies active smoking. He denies any significant family history. Review of Systems-Cardiology Review of Systems Constitutional: As described under HPI; No As described under HPI, No no symptoms reported, No chills, No fever, No lightheadedness Eyes: No As described under HPI, No no symptoms reported, No blindness, No blurred vision, No contact lenses, No drainage, No decreased acuity, No foreign body sensation, No pain, No vision change Ears/Nose/Throat: No As described under HPI, No no symptoms reported, No chronic hearing loss, No ear discharge, No ear pain, No nasal drainage, No ulcerations Respiratory: No no symptoms reported; As described under HPI; No As described under HPI, No cough, No orthopnea, No shortness of breath, No SOB with excertion Cardiovascular: No no symptoms reported; As described under HPI; No As described under HPI, No chest pain, No edema, No irregular heart rate, No lightheadedness, No palpitations Gastrointestinal: No no symptoms reported, No As described under HPI, No abdomen distended, No abdominal pain, No blood streaked bowels, No constipation, No diarrhea, No nausea, No vomiting, No stool coloration changes Genitourinary: No As described under HPI, No burning, No dysuria, No discharge, No frequency, No flank pain, No hematuria, No urgency Skin: No rash, No skin related problems, No ulcerations Psychiatric/Neurological: No anxiety, No depression, No seizure, No focal weakness, No syncope Hematologic: No bleeding abnormalities All Other Systems Reviewed Negative Unless Noted: Yes FJV-Mogjpn-Brrhqm Hx Patient Social History Alcohol Use: Denies Use Recreational Drug Use: No Smoking Status: Former Smoker Type Used: Cigars, Cigarettes 2nd Hand Smoke Exposure: No Recent Foreign Travel: No Recent Infectious Disease Expo: No Hospitalization with Isolation: Denies Immunizations Up To Date Tetanus Booster (TDap): Unknown Date of Pneumonia Vaccine: Jan 13, 2014 Date of Influenza Vaccine: Jul 23, 2019 Past Medical History PMH As described under Assessment. Family Medical History Family History: Diabetes mellitus 19 MOTHER G8 BROTHER FH: pancreatic cancer 19 FATHER Allergies and Home Medications Allergies Coded Allergies: No Known Drug Allergies (Verified , 11/18/18) Home Medications Acetaminophen 650 Mg Tablet.er, 1,300 MG PO DAILY PRN for PAIN-MILD, (Reported) Apixaban 2.5 Mg Tablet, 2.5 MG PO DAILY, (Reported) Atorvastatin Calcium 10 Mg Tablet, 10 MG PO HS, (Reported) Calcitriol 0.25 Mcg Capsule, 0.25 MCG PO MoWeFr, (Reported) Calcium Carbonate 300 Mg Tab.chew, 600 MG PO TID, (Reported) Cephalexin 250 Mg Capsule, 500 MG PO TID Prescribed by: ANGELIKA REED on 04/28/19 1140 Clopidogrel Bisulfate 75 Mg Tablet, 75 MG PO DAILY, (Reported) Furosemide 40 Mg Tablet, 40 MG PO DAILY, (Reported) Insulin Detemir 100 Unit/1 Ml Insuln.pen, 21 UNIT SQ DAILY, (Reported) Insulin Lispro 100 Unit/1 Ml Cartridge, 7 UNIT SQ TIDAC, (Reported) Metoprolol Succinate 100 Mg Tab.er.24h, 100 MG PO BID, (Reported) Nitroglycerin 0.4 Mg Tab.subl, 0.4 MG SL UD PRN for CHEST PAIN, (Reported) Pantoprazole Sodium 40 Mg Tablet.dr, 40 MG PO DAILY, (Reported) Potassium Chloride 20 Meq Tab.er.prt, 20 MEQ PO DAILY, (Reported) Prednisone 5 Mg Tablet, 5 MG PO BID, (Reported) Tamsulosin HCl 0.4 Mg Cap, 0.4 MG PO DAILY, (Reported) Patient Home Medication List Home Medication List Reviewed: Yes Physical Exam-Cardiology Physical Exam Vital Signs/I&O 08/27/19 08/27/19 08/27/19 08/27/19 00:00 04:00 08:00 08:00 Temp 36.5 36.4 36.5 Pulse 85 91 95 Resp 18 18 20 B/P (MAP) 98/60 (73) 111/71 (84) 147/78 (101) Pulse Ox 98 98 98 97 O2 Delivery Room Air Room Air Room Air Room Air 08/27/19 00:00 Intake Total 230 ml Output Total 500 ml Balance -270 ml Capillary Refill : Less Than 3 Seconds Constitutional: appears stated age, AAO x 3; No apparent distress; well- developed, well-nourished HEENT: PERRL; No discharge; hearing is well preserved, oral hygience is good; No ulceration, No xanthelasmas are seen Neck: No carotid bruit; carotid pulses are 2 + bilaterally Respiratory: chest is bilaterally symmetric, lungs clear to auscultation Cardiovascular: regular rate-rhythm, S1 and S2, systolic murmur Gastrointestinal: soft, audible bowel sounds; No spleenomegaly Rectal: deferred Extremities: normal range of motion, non-tender, normal inspection; No clubbing, No cyanosis; no lower extremity edema bilateral; No significant edema Neurologic/Psychiatric: no motor/sensory deficits, alert, normal mood/affect, oriented x 3, power is 5/5 both on sides Skin: normal color, warm/dry; No rash, No ulcerations Data Review Labs Laboratory Tests 08/26/19 11:42: White Blood Count 11.5H, Red Blood Count 4.46, Hemoglobin 12.4L, Hematocrit 40, Mean Corpuscular Volume 89, Mean Corpuscular Hemoglobin 28, Mean Corpuscular Hemoglobin Concent 31L, Red Cell Distribution Width 16.8H, Platelet Count 162, Mean Platelet Volume 10.4, Neutrophils (%) (Auto) 72, Lymphocytes (%) (Auto) 17, Monocytes (%) (Auto) 10, Eosinophils (%) (Auto) 1, Basophils (%) (Auto) 0, Neutrophils # (Auto) 8.3H, Lymphocytes # (Auto) 2.0, Monocytes # (Auto) 1.1H, Eosinophils # (Auto) 0.1, Basophils # (Auto) 0.0, Sodium Level 133L, Potassium Level 4.1, Chloride Level 103, Carbon Dioxide Level 18L, Anion Gap 12, Blood Urea Nitrogen 70H, Creatinine 3.11H, Estimat Glomerular Filtration Rate 19, BUN/Creatinine Ratio 23, Glucose Level 175H, Lactic Acid Level 1.71, Calcium Level 9.1, Corrected Calcium 9.3, Magnesium Level 1.7, Total Bilirubin 1.3H, Aspartate Amino Transf (AST/SGOT) 21, Alanine Aminotransferase (ALT/SGPT) 35, Alkaline Phosphatase 107, C-Reactive Protein High Sensitivity 10.83H, B-Type Natriuretic Peptide 339.7H, Total Protein 6.8, Albumin 3.7 08/27/19 04:30: White Blood Count 9.0, Red Blood Count 4.14L, Hemoglobin 11.5L, Hematocrit 37L, Mean Corpuscular Volume 89, Mean Corpuscular Hemoglobin 28, Mean Corpuscular Hemoglobin Concent 31L, Red Cell Distribution Width 16.2H, Platelet Count 150, Mean Platelet Volume 10.5H, Neutrophils (%) (Auto) 69, Lymphocytes (%) (Auto) 20, Monocytes (%) (Auto) 9, Eosinophils (%) (Auto) 1, Basophils (%) (Auto) 0, Neutrophils # (Auto) 6.2, Lymphocytes # (Auto) 1.8, Monocytes # (Auto) 0.8, Eosinophils # (Auto) 0.1, Basophils # (Auto) 0.0, Sodium Level 135, Potassium Level 3.5L, Chloride Level 107, Carbon Dioxide Level 16L, Anion Gap 12, Blood Urea Nitrogen 66H, Creatinine 2.92H, Estimat Glomerular Filtration Rate 21, BUN/Creatinine Ratio 23, Glucose Level 186H, Calcium Level 8.6, Corrected Calcium 9.4, Total Bilirubin 0.9, Aspartate Amino Transf (AST/SGOT) 12, Alanine Aminotransferase (ALT/SGPT) 22, Alkaline Phosphatase 76, Total Protein 5.6L, Albumin 3.0L A/P-Cardiology Assessment/Admission Diagnosis Lower extremity cellulitis, CAD, history of PCI, Shortness of breath, LVH, Paroxysmal atrial fibrillation, Hypertension, End-stage renal disease. Plan Lower extremity cellulitis, on IV antibiotics. Defer to the primary team. CAD, history of PCI, coronary angiography was done on 11/19/2018 for unstable a ngina. Severe proximal LAD stenosis treated successfully with a drug-eluting stent. Drug-eluting stent was resolute integrity 3.0 x 26 mm. Patient needs to continue Plavix. Shortness of breath, no acute congestive heart failure on examination. We will request an echocardiogram. On left heart catheterization LVEDP was 23 mmHg, suggesting diastolic dysfunction. Patient was on Lasix. LVH, no acute issues. Paroxysmal atrial fibrillation, continue Eliquis and metoprolol. Eliquis is renal dosed. Hypertension, continue outpatient medical therapy. End-stage renal disease. Patient follows with nephrology as an outpatient. All medication should be renal dosed. Thank you for your consultation. Please call me if you have any questions. Mireille Clark MD, FACP, FACC, FSCAI, FHRS, CCDS Interventional Cardiology Cardiac Electrophysiology Vascular Medicine and Endovascular Interventions Clinical Quality Measures DVT/VTE Risk/Contraindication: Risk Factor Score Per Nursin RFS Level Per Nursing on Admit: 4+=Very High Abner CLARK MD Aug 26, 2019 16:32 POS
--- NOTE | 2019-08-26 16:59 | NUR ---
CR 3.11; CR CL ~17; WT 91 KG; VANCO 1500 MG IV BOLUS THEN 1000 MG IV Q48H; TROUGH AFTER 2ND DOSE
[2019-08-26] MEDS ORDERED: VANCOMYCIN 1500 MG/NS 500 ML IVPB IV NR ×2 (17:00)
[2019-08-26] MEDS ORDERED: CATHETER FLUSH 10 ML SYR IV PRN (17:00)
--- NOTE | 2019-08-26 17:57 | Consultation - Surgery ---
History of Present Illness History of Present Illness Patient Consulted On(candice/time) 08/26/19 17:44 Date Seen by Provider: Aug 26, 2019 Time Seen by Provider: 15:24 History of Present Illness Consult requested by Dr. Hines for left lower extremity cellulitis. Patient is an 89 year old male who states over last month been having swelling of b/l lower extremity. Over last couple days began having slight redness to the left lower extremity. Moderate discomfort worse with activity and resting makes it better some. Also with some shortness of breath. Resting makes better, activity makes worse. No ileostomy functioning, no issues. Denies fever sweats chills or chest pain. Allergies and Home Medications Allergies Coded Allergies: No Known Drug Allergies (Verified , 11/18/18) Home Medications Acetaminophen 650 Mg Tablet.er, 1,300 MG PO DAILY PRN for PAIN-MILD, (Reported) Apixaban 2.5 Mg Tablet, 2.5 MG PO DAILY, (Reported) Atorvastatin Calcium 10 Mg Tablet, 10 MG PO HS, (Reported) Calcitriol 0.25 Mcg Capsule, 0.25 MCG PO MoWeFr, (Reported) Calcium Carbonate 300 Mg Tab.chew, 600 MG PO TID, (Reported) Cephalexin 250 Mg Capsule, 500 MG PO TID Prescribed by: ANGELIKA REED on 04/28/19 1140 Clopidogrel Bisulfate 75 Mg Tablet, 75 MG PO DAILY, (Reported) Furosemide 40 Mg Tablet, 40 MG PO DAILY, (Reported) Insulin Detemir 100 Unit/1 Ml Insuln.pen, 21 UNIT SQ DAILY, (Reported) Insulin Lispro 100 Unit/1 Ml Cartridge, 7 UNIT SQ TIDAC, (Reported) Metoprolol Succinate 100 Mg Tab.er.24h, 100 MG PO BID, (Reported) Nitroglycerin 0.4 Mg Tab.subl, 0.4 MG SL UD PRN for CHEST PAIN, (Reported) Pantoprazole Sodium 40 Mg Tablet.dr, 40 MG PO DAILY, (Reported) Potassium Chloride 20 Meq Tab.er.prt, 20 MEQ PO DAILY, (Reported) Prednisone 5 Mg Tablet, 5 MG PO BID, (Reported) Tamsulosin HCl 0.4 Mg Cap, 0.4 MG PO DAILY, (Reported) Patient Home Medication List Home Medication List Reviewed: Yes Past Msctrrx-Vholwi-Kmrkfc Hx Patient Social History Alcohol Use: Denies Use Number of Drinks Today: Recreational Drug Use: No Smoking Status: Former Smoker Former Smoker, Quit: Feb 20, 1958 Type Used: Cigars, Cigarettes 2nd Hand Smoke Exposure: No Recent Foreign Travel: No Contact w/Someone Who Travel: No Recent Infectious Disease Expo: No Recent Hopitalizations: No Immunizations Up To Date Tetanus Booster (TDap): Unknown PED Vaccines UTD: No Date of Pneumonia Vaccine: Jan 13, 2014 Date of Influenza Vaccine: Jul 23, 2019 Seasonal Allergies Seasonal Allergies: No Surgeries History of Surgeries: Yes Surgeries: Bowel Surgery, Coronary Stent, Orthopedic Respiratory History of Respiratory Disorde: No Cardiovascular History of Cardiac Disorders: Yes Cardiac Disorders: Coronary Artery Disease, Hypertension Neurological History of Neurological Disord: No Genitourinary History of Genitourinary Disor: Yes Genitourinary Disorders: Benign Prostatic Hyperpl, Kidney Infection, Renal Failure Gastrointestinal History of Gastrointestinal Di: Yes Gastrointestinal Disorders: Abdominal Hernia, Gastroesophageal Reflux, Gastrointestinal Bleed, Diverticulosis Musculoskeletal History of Musculoskeletal Dis: Yes Musculoskeletal Disorders: Arthritis, Rheumatoid Arthritis Endocrine History of Endocrine Disorders: Yes Endocrine Disorders: Diabetes, Non-Insulin dep HEENT History of HEENT Disorders: Yes HEENT Disorders: Macular Degeneration Cancer History of Cancer: No Psychosocial History of Psychiatric Problem: No Integumentary History of Skin or Integumenta: No Skin/Integumentary Disorders: Psoriasis Blood Transfusions History of Blood Disorders: No Adverse Reaction to a Blood Tr: No Family Medical History Significant Family History: Heart Disease (brother), CAD Over 55 Years Old (brother ), Diabetes Family Medial History: Diabetes mellitus 19 MOTHER G8 BROTHER FH: pancreatic cancer 19 FATHER Review of Systems-General Constitutional: no symptoms reported EENTM: no symptoms reported Respiratory: see HPI Cardiovascular: no symptoms reported Gastrointestinal: no symptoms reported Genitourinary: no symptoms reported Musculoskeletal: no symptoms reported Skin: see HPI Psychiatric/Neurological: No Symptoms Reported Physical Exam-General Problems Physical Exam Vital Signs Vital Signs - First Documented 08/26/19 11:20 Temp 37.0 Pulse 95 Resp 20 B/P (MAP) 127/78 (94) Pulse Ox 97 O2 Delivery Room Air Capillary Refill : Less Than 3 Seconds General Appearance: no apparent distress HEENT: PERRL/EOMI Neck: non-tender, supple Respiratory: chest non-tender, no respiratory distress, no accessory muscle use Cardiovascular: regular rate, rhythm Gastrointestinal: non tender (ileiostomy right abdomen), soft Back: no CVA tenderness Extremities: swelling, other (left lower extremity erythema) Neurologic/Psychiatric: alert, normal mood/affect, oriented x 3 Skin: warm/dry (erythematous lle) Lymphatic: no adenopathy Data Review Labs Laboratory Tests 08/26/19 11:42: White Blood Count 11.5H, Red Blood Count 4.46, Hemoglobin 12.4L, Hematocrit 40, Mean Corpuscular Volume 89, Mean Corpuscular Hemoglobin 28, Mean Corpuscular Hemoglobin Concent 31L, Red Cell Distribution Width 16.8H, Platelet Count 162, Mean Platelet Volume 10.4, Neutrophils (%) (Auto) 72, Lymphocytes (%) (Auto) 17, Monocytes (%) (Auto) 10, Eosinophils (%) (Auto) 1, Basophils (%) (Auto) 0, Neutrophils # (Auto) 8.3H, Lymphocytes # (Auto) 2.0, Monocytes # (Auto) 1.1H, Eosinophils # (Auto) 0.1, Basophils # (Auto) 0.0, Sodium Level 133L, Potassium Level 4.1, Chloride Level 103, Carbon Dioxide Level 18L, Anion Gap 12, Blood Urea Nitrogen 70H, Creatinine 3.11H, Estimat Glomerular Filtration Rate 19, BUN/Creatinine Ratio 23, Glucose Level 175H, Lactic Acid Level 1.71, Calcium Level 9.1, Corrected Calcium 9.3, Magnesium Level 1.7, Total Bilirubin 1.3H, Aspartate Amino Transf (AST/SGOT) 21, Alanine Aminotransferase (ALT/SGPT) 35, Alkaline Phosphatase 107, C-Reactive Protein High Sensitivity 10.83H, B-Type Natriuretic Peptide 339.7H, Total Protein 6.8, Albumin 3.7 Assessment/Plan Assessment/Plan Assessment/Plan left lower extremity cellulitis shortness of breath with exertion history of colectomy end ileostomy iv hydration antibiotics and watch for improvement no surgical intervention needed at this time will follow. Clinical Quality Measures DVT/VTE Risk/Contraindication: Risk Factor Score Per Nursin RFS Level Per Nursing on Admit: 4+=Very High SILVERIO MONTILLA DO Aug 26, 2019 17:57 POS
[2019-08-26 19:34] VITALS: BP 129/73
[2019-08-26] MEDS: APIXABAN 2.5 MG (ELIQUIS) TABLET PO SCH (20:41)
[2019-08-26] MEDS: ACETAMINOPHEN 325 MG TABLET PO PRN (20:41)
[2019-08-26] MEDS: CATHETER FLUSH 10 ML SYR IV SCH (21:25)
--- NOTE | 2019-08-26 22:07 | History & Physical-Hospitalist ---
History of Present Illness HPI/Chief Complaint Chief complaint: Left lower extremity cellulitis History of present illness: This is an 89-year-old white male who is known to me from prior admissions who had been at [facility] for 5 months then went to intermediate following that after colon resection which resulted in severe worsening of renal failure requiring 17 dialysis sessions who presented to the ER with worsening left lower extremity pain found to have cellulitis in need of antibiotic treatment. He is maintained on oral anticoagulation. At this current time patient feels better but overall very negative about his overall status which has been his usual report every admission he has been here. Source: patient Exam Limitations: no limitations Date Seen 08/26/19 Time Seen by a Provider: 17:40 Attending Physician Trixie Wilde DO [facility] Referring Physician Date of Admission Aug 26, 2019 at 14:22 Home Medications & Allergies Home Medications Reviewed patient Home Medication Reconciliation performed by pharmacy medication reconciliations optical manufacturing technician and/or nursing. Patients Allergies have been reviewed. Allergies Allergies Coded Allergies No Known Drug Allergies (Verified11/18/18) Past Qpzrnpj-[place]-Qsjchi Hx Past Med/Social Hx: Reviewed Nursing Past Med/Soc Hx, Reviewed and Corrections made Patient Social History Marrital Status: single Alcohol Use: Denies Use Number of Drinks Today: Alcohol Beverage of Choice: Beer, Wine Recreational Drug Use: No Smoking Status: Former Smoker Former Smoker, Quit: Feb 20, 1958 Type Used: Cigars, Cigarettes 2nd Hand Smoke Exposure: No Recent Foreign Travel: No Contact w/other who traveled: No Recent Hopitalizations: No Recent Infectious Disease Expo: No Immunizations Up To Date Tetanus Booster (TDap): Unknown Pediatric: No Date of Pneumonia Vaccine: Jan 13, 2014 Date of Influenza Vaccine: Jul 23, 2019 Seasonal Allergies Seasonal Allergies: No Past Medical History Surgeries: Bowel Surgery, Coronary Stent, Orthopedic Respiratory: COPD Currently Using CPAP: No Currently Using BIPAP: No Cardiac: Coronary Artery Disease, Hypertension Genitourinary: Benign Prostatic Hyperpl, Kidney Infection, Renal Failure Gastrointestinal: Abdominal Hernia, Gastroesophageal Reflux, Gastrointestinal Bleed, Diverticulosis Musculoskeletal: Arthritis, Rheumatoid Arthritis Endocrine: Diabetes, Non-Insulin dep HEENT: Macular Degeneration Skin/Integumentary: Psoriasis History of Blood Disorders: No Adverse Reaction to Blood Baker: No Family History Reviewed Nursing Family Hx Diabetes mellitus 19 MOTHER G8 BROTHER FH: pancreatic cancer 19 FATHER Heart Disease (brother), CAD Over 55 Years Old (brother ), Diabetes Review of Systems Constitutional: see HPI, malaise, weakness Musculoskeletal: joint swelling, muscle pain Skin: see HPI Physical Exam Physical Exam Vital Signs Vital Signs - First Documented 08/26/19 11:20 Temp 37.0 Pulse 95 Resp 20 B/P (MAP) 127/78 (94) Pulse Ox 97 O2 Delivery Room Air Capillary Refill : Less Than 3 Seconds Height, Weight, BMI Height: 5'7.00" Weight: 194lbs. 2.0oz. [id number]; 31.48 BMI Method:Stated General Appearance: No Apparent Distress, WD/WN, Chronically ill Eyes: Right Eye Normal Inspection, Right Eye PERRL HEENT: PERRL/EOMI, Normal ENT Inspection, Pharynx Normal, Moist Mucous Membranes Neck: Full Range of Motion, Normal Inspection, Non Tender Respiratory: Chest Non Tender, Lungs Clear, Normal Breath Sounds, No Accessory Muscle Use, No Respiratory Distress Cardiovascular: Regular Rate, Rhythm, No Edema, No Gallop, No JVD, No Murmur, Normal Peripheral Pulses Gastrointestinal: Normal Bowel Sounds, No Organomegaly, No Pulsatile Mass, Non Tender, Soft, Other (colostomy) Back: Normal Inspection, No CVA Tenderness, No Vertebral Tenderness Extremity: Normal Capillary Refill, Normal Inspection, Normal Range of Motion, Non Tender, No Calf Tenderness, Pedal Edema Neurologic/Psychiatric: Alert, Oriented x3, No Motor/Sensory Deficits, 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 Assessment/Plan Admission Diagnosis Assessment: Left leg cellulitis ARF on CRI Previous dialysis patient s/p colostomy 2019 HTN DM Plan: IV abx General surgery consultation Admission Status: Inpatient Order (span 2 midnights) Reason for Inpatient Admission: Left leg cellulitis with ARF on CRI Diagnosis/Problems Diagnosis/Problems (1) Left leg cellulitis Status: Acute (2) Chronic renal failure Status: Acute Qualifiers: Chronic kidney disease stage: unspecified stage Qualified Codes: N18.9 - Chronic kidney disease, unspecified (3) Chronic atrial fibrillation Status: Chronic (4) Generalized weakness Status: Acute (5) Hypertension Status: Chronic Clinical Quality Measures DVT/VTE Risk/Contraindication: Risk Factor Score Per Nursin RFS Level Per Nursing on Admit: 4+=Very High TRIXIE WILDE DO Aug 26, 2019 22:07 POS
[2019-08-26] MEDS ORDERED: diphenhydrAMINE 25 MG TAB (BENADRYL) PO PRN (22:15)
[2019-08-26] MEDS ORDERED: CALCIUM CARBONATE 500 MG (TUMS) TAB.CHEW PO PRN (22:15)
[2019-08-26] MEDS ORDERED: LOPERAMIDE 2 MG (IMODIUM) TABLET PO PRN (22:15)
[2019-08-26] MEDS ORDERED: DOCUSATE SODIUM 100 MG (COLACE) CAP PO PRN (22:15)
[2019-08-26] MEDS ORDERED: ONDANSETRON 4 MG/2 ML (SDV) Z0FRAN IVP PRN (22:15)
[2019-08-27] VITALS: BP 98/60
[2019-08-27 04:00] VITALS: BP 111/71
[2019-08-27 05:38] LABS: BASOPHILS % (AUTO) 0 % (0-10); EOSINOPHILS # (AUTO) 0.1 10^3/uL (0.0-0.3); EOSINOPHILS % (AUTO) 1 % (0-10); HEMATOCRIT 37 % (40-54); HEMOGLOBIN 11.5 G/DL (13.3-17.7); LYMPHOCYTES # (AUTO) 1.8 X 10^3 (1.0-4.0); LYMPHOCYTES % (AUTO) 20 % (12-44); MEAN CORPUSCULAR HEMOGLOBIN 28 PG (25-34); MEAN CORPUSCULAR HGB CONC 31 G/DL (32-36); MEAN CORPUSCULAR VOLUME 89 FL (80-99); MEAN PLATELET VOLUME 10.5 FL (7.4-10.4); MONOCYTES # (AUTO) 0.8 X 10^3 (0.0-1.0); MONOCYTES % (AUTO) 9 % (0-12); NEUTROPHILS # (AUTO) 6.2 X 10^3 (1.8-7.8); NEUTROPHILS % (AUTO) 69 % (42-75); PLATELET COUNT 150 10^3/uL (130-400); RED CELL DISTRIBUTION WIDTH 16.2 % (10.0-14.5)
[2019-08-27 06:06] LABS: BILIRUBIN,TOTAL 0.9 MG/DL (0.1-1.0); CALCIUM 8.6 MG/DL (8.5-10.1); CREATININE SERUM 2.92 MG/DL (0.60-1.30); POTASSIUM 3.5 MMOL/L (3.6-5.0); TOTAL PROTEIN 5.6 GM/DL (6.4-8.2)
[2019-08-27] MEDS: CATHETER FLUSH 10 ML SYR IV SCH ×3 (06:12→21:06)
[2019-08-27 08:00] VITALS: BP 147/78
[2019-08-27] MEDS: SENNA W/DOCUSATE (SENOKOT S) TABLET PO SCH ×2 (08:06→21:04)
[2019-08-27] MEDS: APIXABAN 2.5 MG (ELIQUIS) TABLET PO SCH ×2 (08:06→21:05)
--- NOTE | 2019-08-27 09:45 | Cardiology Progress Note ---
Cardiology SOAP Progress Note Subjective: No cardiac complaints. Objective: I&O/Vital Signs 08/27/19 08/27/19 08/27/19 08/27/19 00:00 04:00 08:00 08:00 Temp 36.5 36.4 36.5 Pulse 85 91 95 Resp 18 18 20 B/P (MAP) 98/60 (73) 111/71 (84) 147/78 (101) Pulse Ox 98 98 98 97 O2 Delivery Room Air Room Air Room Air Room Air 08/27/19 00:00 Intake Total 230 ml Output Total 500 ml Balance -270 ml Weight (Pounds): 194 Weight (Ounces): 2.0 Weight (Calculated Kilograms): [id number] Constitutional: appears stated age, AAO x 3; No apparent distress; well- developed, well-nourished Respiratory: chest is bilaterally symmetric, lungs clear to auscultation Cardiovascular: regular rate-rhythm, S1 and S2, systolic murmur Gastrointestional: soft, audible bowel sounds; No spleenomegaly Extremities: normal range of motion, non-tender, normal inspection; No clubbing, No cyanosis; no lower extremity edema bilateral; No significant edema Neurologic/Psychiatric: no motor/sensory deficits, alert, normal mood/affect, oriented x 3, power is 5/5 both on sides Skin: normal color, warm/dry; No rash, No ulcerations Results/Procedures: Labs Laboratory Tests 08/26/19 11:42: White Blood Count 11.5H, Red Blood Count 4.46, Hemoglobin 12.4L, Hematocrit 40, Mean Corpuscular Volume 89, Mean Corpuscular Hemoglobin 28, Mean Corpuscular Hemoglobin Concent 31L, Red Cell Distribution Width 16.8H, Platelet Count 162, Mean Platelet Volume 10.4, Neutrophils (%) (Auto) 72, Lymphocytes (%) (Auto) 17, Monocytes (%) (Auto) 10, Eosinophils (%) (Auto) 1, Basophils (%) (Auto) 0, Neutrophils # (Auto) 8.3H, Lymphocytes # (Auto) 2.0, Monocytes # (Auto) 1.1H, Eosinophils # (Auto) 0.1, Basophils # (Auto) 0.0, Sodium Level 133L, Potassium Level 4.1, Chloride Level 103, Carbon Dioxide Level 18L, Anion Gap 12, Blood Urea Nitrogen 70H, Creatinine 3.11H, Estimat Glomerular Filtration Rate 19, BUN/Creatinine Ratio 23, Glucose Level 175H, Lactic Acid Level 1.71, Calcium Level 9.1, Corrected Calcium 9.3, Magnesium Level 1.7, Total Bilirubin 1.3H, Aspartate Amino Transf (AST/SGOT) 21, Alanine Aminotransferase (ALT/SGPT) 35, Alkaline Phosphatase 107, C-Reactive Protein High Sensitivity 10.83H, B-Type Natriuretic Peptide 339.7H, Total Protein 6.8, Albumin 3.7 08/27/19 04:30: White Blood Count 9.0, Red Blood Count 4.14L, Hemoglobin 11.5L, Hematocrit 37L, Mean Corpuscular Volume 89, Mean Corpuscular Hemoglobin 28, Mean Corpuscular Hemoglobin Concent 31L, Red Cell Distribution Width 16.2H, Platelet Count 150, Mean Platelet Volume 10.5H, Neutrophils (%) (Auto) 69, Lymphocytes (%) (Auto) 20, Monocytes (%) (Auto) 9, Eosinophils (%) (Auto) 1, Basophils (%) (Auto) 0, Neutrophils # (Auto) 6.2, Lymphocytes # (Auto) 1.8, Monocytes # (Auto) 0.8, Eosinophils # (Auto) 0.1, Basophils # (Auto) 0.0, Sodium Level 135, Potassium Level 3.5L, Chloride Level 107, Carbon Dioxide Level 16L, Anion Gap 12, Blood Urea Nitrogen 66H, Creatinine 2.92H, Estimat Glomerular Filtration Rate 21, BUN/Creatinine Ratio 23, Glucose Level 186H, Calcium Level 8.6, Corrected Calcium 9.4, Total Bilirubin 0.9, Aspartate Amino Transf (AST/SGOT) 12, Alanine Aminotransferase (ALT/SGPT) 22, Alkaline Phosphatase 76, Total Protein 5.6L, Albumin 3.0L A/P: Assessment/Dx: Lower extremity cellulitis, CAD, history of PCI, Shortness of breath, LVH, Paroxysmal atrial fibrillation, Hypertension, End-stage renal disease. Plan: Lower extremity cellulitis, on IV antibiotics. Defer to the primary team. CAD, history of PCI, coronary angiography was done on 11/19/2018 for unstable an brandt. Severe proximal LAD stenosis treated successfully with a drug-eluting stent. Drug-eluting stent was resolute integrity 3.0 x 26 mm. Patient needs to continue Plavix. Shortness of breath, no acute congestive heart failure on examination. We will request an echocardiogram. On left heart catheterization LVEDP was 23 mmHg, suggesting diastolic dysfunction. Patient was on Lasix. LVH, no acute issues. Paroxysmal atrial fibrillation, continue Eliquis and metoprolol. Eliquis is renal dosed. Hypertension, continue outpatient medical therapy. End-stage renal disease. Patient follows with nephrology as an outpatient. All medication should be renal dosed. Thank you for your consultation. Please call me if you have any questions. Mireille Clark MD, FACP, FACC, FSCAI, FHRS, CCDS Interventional Cardiology Cardiac Electrophysiology Vascular Medicine and Endovascular Interventions Focused Exam Lactate Level 08/26/19 11:42: Lactic Acid Level 1.71 bAner CLARK MD Aug 27, 2019 09:45 POS
[2019-08-27] MEDS ORDERED: DULA0.75 SQ (10:34)
--- NOTE | 2019-08-27 10:45 | NUR ---
2ML OF DEFINITY SOLUTION GIVEN THROUGH IV. PT TOLERATED EXAM WELL.
[2019-08-27 11:05] VITALS: BP 144/80
--- NOTE | 2019-08-27 11:44 | NUR ---
HAD A LIST FAXED OVER FROM [facility], I COMPARED IT WITH THE LIST ON FILE FROM HIS PREVIOUS ADMISSION. I HAVE A FEW QUESTIONS ABOUT MEDICATIONS AND HAVE LEFT A MESSAGE WITH THE PATIENTS DAUGHTER TO CLARIFY. I WILL UPDATED MED REC WHEN SHE CALLS BACK. NURSE THAT ADMITTED PATIENT STATES SHE WENT OVER THE LIST WITH THE DAUGHTER AND NOTED THE CHANGE IN DOSE ON THE LEVEMIR AND HUMALOG, SHE ALSO ADDED THE NEW MED FOR TRULICITY. I CALLED AND VERIFIED WITH [facility] DR. GÓMEZ THAT THE PATIENT WAS GIVEN TRULICITY 75 WEEKLY SAMPLES. THEY ALSO VERIFIED THE ELIQUIS DOSE 2.5MG ONCE DAILY, IN THE PAST HE HAS REPORTED THAT MEDICATION COMES FROM THE FUDGER. I AM WANTING TO CLARIFY THE PREDNISONE DOSE, IT WAS REPORTED LAST VISIT 5MG DAILY LAST FILLED #90 06-24-19 HOWEVER 08-14-19 PREDNISONE 5MG EVERY OTHER DAY WAS FILLED. ALSO POTASSIUM WAS ON FILE FROM HIS PREVIOUS VISIT HOWEVER IT HAS NOT BEEN FILLED SINCE 04-19-19 #30 20MEQ. WILL UPDATE WHEN I AM ABLE TO VERIFY WITH PATIENTS DAUGHTER. Addendum: 08/27/19 at 1328 by RADHA CHRISTIAN [facility] SPOKE WITH THE PATIENTS DAUGHTER JUVENTINO AT THIS TIME WHO CLARIFIED THE QUESTIONS I HAD. [facility] FILLED: 08-17-19 PLAVIX 75MG DAILY 08-14-19 LEVEMIR FLEXTOUCH 21 UNITS BID (USES 30 UNITS BID) 08-14-19 TAMSULOSIN 0.4MG DAILY #90 08-14-19 PANTOPRAZOLE 40MG DAILY #30 08-14-19 ATORVASTATIN 10MG HS #30 11-23-19 PREDNISONE 5MG EVERY OTHER DAY #90 (JUVENTINO STATES HE TAKES IT BID) 08-14-19 FUROSEMIDE 40MG DAILY #30 07-23-19 CALCITRIOL 0.25MCG Fri #12 07-23-19 METOPROLOL ER 100MG BID #180 06-23-19 HUMALOG KWIKPEN 7 UNITS TID (USES 8 UNITS TID WITH MEALS) 05-26-19 VITAMIN D2 50,000 UNITS WEEKLY #12 (STATES HE IS ALMOST FINISHED WITH THIS) 04-19-19 POTASSIUM 20MEQ DAILY #30 (SEE BELOW FOR NOTE) 03-31-19 NITROGLYCERIN 0.4MG WHEN I ASKED JUVENTINO ABOUT THE POTASSIUM AND THE LAST FILL DATE SHE STATES SHE PUTS THIS ON THE TABLE FOR HIM TO TAKE BECAUSE SOMETIMES HE DOES NOT TAKE THE LASIX SO HE WOULD NOT NEED THE POTASSIUM, HOWEVER SHE STATES SHE KNOWS IT IS DIFFICULT FOR HIM TO SWALLOW SO HE MAY BE SKIPPING IT MORE THAN SHE THOUGHT. I NOTED THE PAST DUE FILL DATE ON THE MED REC) PATIENT RECEIVES SAMPLES OF THE FOLLOWING: ELIQUIS 2.5MG (HE WILL ONLY TAKE THIS ONCE DAILY) TRULICITY 0.75MG WEEKLY ON MONDAYS (VERIFIED WITH [facility] THEY GAVE SAMPLES) OTC MEDS: TYLENOL 650MG 2 DAILY PRN TUMS TID
[2019-08-27] MEDS ORDERED: predniSONE 10 MG TAB PO NR (12:15)
--- NOTE | 2019-08-27 12:33 | Progress Note - Hospitalist ---
Subjective HPI/CC On Admission Date Seen by Provider: Aug 27, 2019 Time Seen by Provider: 11:00 Chief complaint: Left lower extremity cellulitis History of present illness: This is an 89-year-old white male who is known to me from prior admissions who had been at [facility] for 5 months then went to shelter following that after colon resection which resulted in severe worsening of renal failure requiring 17 dialysis sessions who presented to the ER with worsening left lower extremity pain found to have cellulitis in need of antibiotic treatment. He is maintained on oral anticoagulation. At this current time patient feels better but overall very negative about his overall status which has been his usual report every admission he has been here. Subjective/Events-last exam Pt doing pretty well. Left leg still sore but much improved. Asking to restart on Prednisone of which he takes 5 MG BID for his arthritis. Will start 15 MG of Prednisone since he missed dose yesterday. Will initiate PT and OT. Overall much improved. Restarted all home medications. Review of Systems Musculoskeletal: leg pain Focused Exam Lactate Level 08/26/19 11:42: Lactic Acid Level 1.71 Objective Exam Vital Signs Vital Signs Date Time Temp Pulse Resp B/P (MAP) Pulse Ox O2 Delivery O2 Flow Rate FiO2 08/28/19 07:55 36.1 100 22 140/80 (100) 97 Room Air Capillary Refill : Less Than 3 Seconds General Appearance: No Apparent Distress, WD/WN, Chronically ill Respiratory: Lungs Clear Cardiovascular: Regular Rate, Rhythm Extremity: Swelling, Other (tenderness left leeg) Neurologic/Psychiatric: Alert, Oriented x3, No Motor/Sensory Deficits, Normal Mood/Affect Skin: Normal Color, Warm/Dry, Rash (redness left leg) Results/Procedures Lab Patient resulted labs reviewed. Assessment/Plan Assessment and Plan Assess & Plan/Chief Complaint Assessment: Left leg cellulitis ARF on CRI Previous dialysis patient s/p colostomy 2019 HTN DM Plan: IV abx General surgery consultation Diagnosis/Problems Diagnosis/Problems (1) Left leg cellulitis Status: Acute (2) Chronic renal failure Status: Acute Qualifiers: Chronic kidney disease stage: unspecified stage Qualified Codes: N18.9 - Chronic kidney disease, unspecified (3) Chronic atrial fibrillation Status: Chronic (4) Generalized weakness Status: Acute (5) Hypertension Status: Chronic Clinical Quality Measures DVT/VTE Risk/Contraindication: Risk Factor Score Per Nursin RFS Level Per Nursing on Admit: 4+=Very High JACKELINE CEE DO Aug 27, 2019 12:33 POS
--- NOTE | 2019-08-27 13:08 | Progress Note - Surgery ---
Subjective Date Seen by a Provider: Aug 27, 2019 Time Seen by a Provider: 10:01 Subjective/Events-last exam Patient reports no changes to the left lower extremity except slight less swelling. Pain minimal in the left lower extremity. Redness minimal. Still with occasional shortness of breath. Denies fever chills chest pain. WBC down to 9 Focused Exam Lactate Level 08/26/19 11:42: Lactic Acid Level 1.71 Objective Exam Vital Signs Date Time Temp Pulse Resp B/P (MAP) Pulse Ox O2 Delivery O2 Flow Rate FiO2 08/27/19 11:05 36.2 90 18 144/80 (101) 100 Room Air 08/27/19 08:00 36.5 95 20 147/78 (101) 97 Room Air 08/27/19 08:00 98 Room Air 08/27/19 04:00 36.4 91 18 111/71 (84) 98 Room Air 08/27/19 00:00 36.5 85 18 98/60 (73) 98 Room Air 08/26/19 20:00 96 Room Air 08/26/19 19:34 36.3 84 18 129/73 (91) 96 Room Air 08/26/19 16:28 97 Room Air 08/26/19 16:19 37.0 95 20 127/78 97 Room Air 08/26/19 15:55 74 16 121/70 96 Room Air I & O 08/27/19 07:00 Intake Total 430 ml Output Total 800 ml Balance -370 ml Capillary Refill : Less Than 3 Seconds General Appearance: No Apparent Distress, WD/WN, Chronically ill HEENT: PERRL/EOMI, Pharynx Normal Neck: Full Range of Motion, Normal Inspection, Non Tender Respiratory: Chest Non Tender, Normal Breath Sounds, No Accessory Muscle Use, No Respiratory Distress Cardiovascular: Regular Rate, Rhythm Gastrointestinal: non tender (ileiostomy right abdomen), soft Extremity: Normal Capillary Refill, Normal Range of Motion, Non Tender, No Calf Tenderness, Swelling (less and minimal erythema left lower ext) Neurologic/Psychiatric: Alert, Oriented x3, No Motor/Sensory Deficits, pony edger II- XII Norm as Tested, Depressed Affect Skin: Normal Color, Warm/Dry, Rash (left leg) Lymphatic: No Adenopathy Results Lab Laboratory Tests 08/27/19 04:30: White Blood Count 9.0, Red Blood Count 4.14L, Hemoglobin 11.5L, Hematocrit 37L, Mean Corpuscular Volume 89, Mean Corpuscular Hemoglobin 28, Mean Corpuscular Hemoglobin Concent 31L, Red Cell Distribution Width 16.2H, Platelet Count 150, Mean Platelet Volume 10.5H, Neutrophils (%) (Auto) 69, Lymphocytes (%) (Auto) 20, Monocytes (%) (Auto) 9, Eosinophils (%) (Auto) 1, Basophils (%) (Auto) 0, Neutrophils # (Auto) 6.2, Lymphocytes # (Auto) 1.8, Monocytes # (Auto) 0.8, Eosinophils # (Auto) 0.1, Basophils # (Auto) 0.0, Sodium Level 135, Potassium Level 3.5L, Chloride Level 107, Carbon Dioxide Level 16L, Anion Gap 12, Blood Urea Nitrogen 66H, Creatinine 2.92H, Estimat Glomerular Filtration Rate 21, BUN/Creatinine Ratio 23, Glucose Level 186H, Calcium Level 8.6, Corrected Calcium 9.4, Total Bilirubin 0.9, Aspartate Amino Transf (AST/SGOT) 12, Alanine Aminotransferase (ALT/SGPT) 22, Alkaline Phosphatase 76, Total Protein 5.6L, Albumin 3.0L 08/27/19 11:12: Glucometer 318H Assessment/Plan Assessment/Plan Assessment/Plan left lower extremity cellulitis shortness of breath with exertion history of colectomy end ileostomy chronic kidney disease iv hydration, monitor kidneys antibiotics and watch for improvement of cellulitis no surgical intervention needed at this time will follow. Clinical Quality Measures DVT/VTE Risk/Contraindication: Risk Factor Score Per Nursin RFS Level Per Nursing on Admit: 4+=Very High SILVERIO MONTILLA DO Aug 27, 2019 13:08 POS
[2019-08-27] MEDS ORDERED: ERGO50006 PO (13:20)
[2019-08-27] MEDS: cefTRIAXone 1,000 MG/SWFI 10 ML IV PUSH IV SCH ×2 (13:57)
[2019-08-27 15:39] VITALS: BP 151/78
[2019-08-27] MEDS: inSUlin ASPART (NovoLOG) 1 UNIT/0.01 ML (CHARGE PER UNIT) SC SCH (15:50)
[2019-08-27] MEDS ORDERED: TROUGH ORDER-PHARMACY XX NR (16:00)
[2019-08-27] MEDS ORDERED: INSULIN LISPRO 8 UNIT SQ SCH (16:00)
[2019-08-27] MEDS ORDERED: VANCOMYCIN 1 GM/NS 250 ML IVPB IV SCH ×2 (17:00)
[2019-08-27] MEDS: VANCOMYCIN 1 GM/NS 250 ML IVPB IV SCH ×2 (17:04)
--- NOTE | 2019-08-27 17:05 | NUR ---
VANCOMYCIN TROUGH = 15.7, CHANGE TO Q24HRS VANCO TROUGH DUE 08/29/19 @ 16:00 IF TROUGH GREATER THAN 20 HOLD 08/29/19 17:00 DOSE.
[2019-08-27] MEDS: predniSONE 5 MG TAB PO SCH (17:26)
[2019-08-27] MEDS: ACETAMINOPHEN 325 MG TABLET PO PRN (17:26)
[2019-08-27 19:28] VITALS: BP 114/69
[2019-08-27] MEDS ORDERED: NON-FORMULARY MEDICATION 1 EA EA (Insulin Detemir (Levemir Flextouch) 30 UNIT) SQ SCH (21:00)
[2019-08-27] MEDS: ALPRAZolam 0.25 MG (XANAX) TAB PO PRN (21:05)
[2019-08-27] MEDS: MELATONIN 3 MG TABLET PO PRN (21:05)
[2019-08-28] VITALS: BP 126/76
[2019-08-28 04:00] VITALS: BP 129/85
[2019-08-28] MEDS: inSUlin ASPART (NovoLOG) 1 UNIT/0.01 ML (CHARGE PER UNIT) SC SCH ×3 (05:41→17:07)
[2019-08-28] MEDS: predniSONE 5 MG TAB PO SCH ×2 (05:41→17:07)
[2019-08-28] MEDS: ACETAMINOPHEN 325 MG TABLET PO PRN ×2 (05:41→18:19)
[2019-08-28] MEDS: ALPRAZolam 0.25 MG (XANAX) TAB PO PRN ×2 (05:41→21:11)
[2019-08-28] MEDS: CATHETER FLUSH 10 ML SYR IV SCH ×3 (05:42→21:11)
[2019-08-28 07:55] VITALS: BP 140/80
--- NOTE | 2019-08-28 09:32 | Progress Note - Surgery ---
DERIAN QUINTANA,MED STUDENT 08/28/19 0931: Subjective Date Seen by a Provider: Aug 28, 2019 Time Seen by a Provider: 08:15 Subjective/Events-last exam Patient says that he still has pain in his LLE that is rated as a 7/10 which is an improvement compared to yesterday when it was rated as a 10/10 according to patient. Pain in LLE had disappeared yesterday evening but came back this morning around 3am, and woke him up. In addition, he does mention having some pain in is his back on the right side along the lower ribs which started last night, and had a headache with neck pain yesterday but it is gone now. Review of Systems General: No Chills, No Malaise HEENT: No Head Aches, No Visual Changes Pulmonary: Dyspnea; No Cough; Other (says that he has sputum productive but no cough ) Cardiovascular: Edema; No: Chest Pain Gastrointestinal: No: Nausea, Vomiting, Abdominal Pain Neurological: Numbness (only in his Left forarm ); No: Weakness, Change in speech Focused Exam Lactate Level 08/26/19 11:42: Lactic Acid Level 1.71 Objective Exam Vital Signs Date Time Temp Pulse Resp B/P (MAP) Pulse Ox O2 Delivery O2 Flow Rate FiO2 08/28/19 07:55 36.1 100 22 140/80 (100) 97 Room Air 08/28/19 04:00 36.4 18 18 129/85 (100) 95 Room Air 08/28/19 00:00 36.2 97 16 126/76 (93) 94 Room Air 08/27/19 20:00 Room Air 08/27/19 19:28 36.8 113 20 114/69 (84) 96 Room Air 08/27/19 15:39 36.6 112 18 151/78 (102) 96 Room Air 08/27/19 11:05 36.2 90 18 144/80 (101) 100 Room Air I & O 08/28/19 07:00 Intake Total 2727 ml Output Total 1850 ml Balance 877 ml Capillary Refill : Less Than 3 Seconds General Appearance: No Apparent Distress, WD/WN, Chronically ill HEENT: PERRL/EOMI; No Scleral Icterus (L), No Scleral Icterus (R) Neck: Normal Inspection, Non Tender, Supple Respiratory: Chest Non Tender, Lungs Clear, No Accessory Muscle Use, No Respiratory Distress Cardiovascular: Regular Rate, Rhythm, No Murmur, Normal Peripheral Pulses Peripheral Pulses: 2+ Radial Pulses (R), 2+ Radial Pulses (L) Gastrointestinal: non tender (ileiostomy right abdomen), soft, no pulsatile mass Extremity: Calf Tenderness, Pedal Edema, Swelling, Other (tenderness left lower leg) Neurologic/Psychiatric: Alert, Oriented x3, Normal Mood/Affect Skin: Normal Color, Warm/Dry, Rash (redness left leg) Lymphatic: No Adenopathy Results Lab Laboratory Tests 08/27/19 11:12: Glucometer 318H 08/27/19 15:45: Glucometer 347H 08/27/19 16:06: Vancomycin Level Trough 15.7 08/27/19 20:52: Glucometer 408*H 08/28/19 06:49: Glucometer 350H Microbiology 08/26/19 Blood Culture - Preliminary, Resulted No growth Assessment/Plan Assessment/Plan Assessment/Plan left lower extremity cellulitis shortness of breath with exertion history of colectomy end ileostomy chronic kidney disease History of A-fib/CAD COPD Diabetes Mellitus Continue Vancomycin through 08/29, monitor vanco trough and kidney function manage Diabetes and hydration level. Diabetic and cardiac diet no surgical intervention needed at this time will follow. Clinical Quality Measures DVT/VTE Risk/Contraindication: Risk Factor Score Per Nursin RFS Level Per Nursing on Admit: 4+=Very High BRADLEY DEE DO 08/28/19 1144: Subjective Time Seen by a Provider: 10:41 Subjective/Events-last exam Pt seen and examined, complains mainly of Left leg pain; "goes all the way up into my hip". He thinks there are times when the pain is much better and admits that even the right leg hurts a little. Complains of pain on the lateral aspect of left lower leg. Review of Systems General: Malaise (pt doesn't want to move much) Objective Exam Extremity: Calf Tenderness (bilaterally), Pedal Edema (+2 on left and +1 on right), Swelling, Other (minimal erythema in left leg, very slight) Assessment/Plan Assessment/Plan Assessment/Plan Left leg pain (in calf as well) Cellulitis - resolved ??PVD Will order US of left leg, arterial and venous to rule out PVD and DVT. Pt told he must walk and increase diet. Supervisory-Addendum Brief Verification & Attestation Participated in pt care: history, MDM, physical Personally performed: exam, history, MDM Care discussed with: Medical Student Procedures: n/a Verification and Attestation of Medical Student E/M Service A medical student performed and documented this service in my presence. I reviewed and verified all information documented by the medical student and made modifications to such information, when appropriate. I personally performed the physical exam and medical decision making. Bradley Dee, Aug 28, 2019,11:44 DERIAN QUINTANA,MED STUDENT Aug 28, 2019 09:31 BRADLEY HAQUE DO Aug 28, 2019 11:44 POS
--- NOTE | 2019-08-28 09:34 | Cardiology Progress Note ---
Subjective Date Seen by Provider: Aug 28, 2019 Time Seen by Provider: 09:30 Subjective/Events-last exam Patient is laying down in bed, having pain in his leg. Review of Systems General: No Chills, No Night Sweats; Fatigue, Malaise; No Appetite, No Other HEENT: No Head Aches, No Visual Changes, No Eye Pain, No Ear Pain, No Dysphasia, No Sinus Congestion, No Post Nasal Drip, No Sore Throat, No Other Pulmonary: Dyspnea; No Cough, No Pleuritic Chest Pain, No Other Cardiovascular: Chest Pain, Edema; No: Palpitations, Orthopnea, Paroxysmal Noc. Dyspnea, Lt Headedness, Other Focused Exam Lactate Level 08/26/19 11:42: Lactic Acid Level 1.71 Objective-Cardiology Exam Last Set of Vital Signs Vital Signs 08/28/19 07:55 Temp 36.1 Pulse 100 Resp 22 B/P (MAP) 140/80 (100) Pulse Ox 97 O2 Delivery Room Air Capillary Refill : Less Than 3 Seconds I&O Intake and Output 08/28/19 00:00 Intake Total 2627 ml Output Total 1700 ml Balance 927 ml Intake Oral 2627 ml Output Urine Total 1100 ml Stool Total 600 ml General: Alert, Oriented X3, Cooperative HEENT: Atraumatic, PERRLA Neck: Supple, No JVD, No Thyromegaly Lungs: Clear to Auscultation, Normal Air Movement Heart: Regular Rate, Normal S1, Normal S2, No Murmurs Abdomen: Normal Bowel Sounds, Soft, No Tenderness, No Hepatosplenomegaly, No Masses Extremities: No Clubbing, No Cyanosis, Normal Pulses, No Tenderness/Swelling Skin: Other (Erythema and swelling of the left leg) Neuro: Normal Gait, Normal Speech, Strength at 5/5 X4 Ext, Normal Tone, Sensation Intact Psych/Mental Status: Mental Status NL, Mood NL A/P-Cardiology Admission Diagnosis Cellulitis Coronary artery disease Acute renal failure Paroxysmal atrial fibrillation Assessment/Plan Cellulitis, receiving antibiotic and improving slowly. Continue to monitor Coronary artery disease, history of intervention, cardiac catheterization done in October 2018 showing severe proximal LAD stenosis, had resolute integrity 3 x 26 mm. Maintained on aspirin and Plavix Acute on chronic renal failure, improving slowly, continue on IV fluid and monitor next Hypertension, continue to monitor blood pressure Paroxysmal atrial fibrillation. Maintained on Eliquis and metoprolol. Continue to monitor Clinical Quality Measures DVT/VTE Risk/Contraindication: Risk Factor Score Per Nursin RFS Level Per Nursing on Admit: 4+=Very High PAT JORDAN MD Aug 28, 2019 09:34 POS
[2019-08-28 09:40] LABS: BASOPHILS % (AUTO) 0 % (0-10); EOSINOPHILS % (AUTO) 0 % (0-10); HEMATOCRIT 35 % (40-54); HEMOGLOBIN 10.8 G/DL (13.3-17.7); LYMPHOCYTES # (AUTO) 1.5 X 10^3 (1.0-4.0); LYMPHOCYTES % (AUTO) 15 % (12-44); MEAN CORPUSCULAR HEMOGLOBIN 28 PG (25-34); MEAN CORPUSCULAR HGB CONC 31 G/DL (32-36); MEAN CORPUSCULAR VOLUME 88 FL (80-99); MEAN PLATELET VOLUME 10.2 FL (7.4-10.4); MONOCYTES # (AUTO) 0.7 X 10^3 (0.0-1.0); MONOCYTES % (AUTO) 8 % (0-12); NEUTROPHILS # (AUTO) 7.3 X 10^3 (1.8-7.8); NEUTROPHILS % (AUTO) 77 % (42-75); PLATELET COUNT 157 10^3/uL (130-400); RED CELL DISTRIBUTION WIDTH 16.2 % (10.0-14.5); WHITE BLOOD COUNT 9.5 10^3/uL (4.3-11.0)
[2019-08-28 09:56] LABS: ALBUMIN 2.9 GM/DL (3.2-4.5); BILIRUBIN,TOTAL 0.4 MG/DL (0.1-1.0); CALCIUM 8.3 MG/DL (8.5-10.1); CREATININE SERUM 2.72 MG/DL (0.60-1.30); POTASSIUM 4.5 MMOL/L (3.6-5.0); TOTAL PROTEIN 5.6 GM/DL (6.4-8.2)
[2019-08-28] MEDS: APIXABAN 2.5 MG (ELIQUIS) TABLET PO SCH ×2 (10:04→21:11)
[2019-08-28] MEDS: SENNA W/DOCUSATE (SENOKOT S) TABLET PO SCH ×2 (10:05→21:11)
[2019-08-28 11:28] VITALS: BP 147/82
[2019-08-28] MEDS ORDERED: inSUlin ASPART (NovoLOG) 1 UNIT/0.01 ML (CHARGE PER UNIT) SC NR (11:30)
--- NOTE | 2019-08-28 12:01 | Progress Note - Hospitalist ---
Subjective HPI/CC On Admission Date Seen by Provider: Aug 28, 2019 Time Seen by Provider: 10:30 Chief complaint: Left lower extremity cellulitis History of present illness: This is an 89-year-old white male who is known to me from prior admissions who had been at [facility] for 5 months then went to snf following that after colon resection which resulted in severe worsening of renal failure requiring 17 dialysis sessions who presented to the ER with worsening left lower extremity pain found to have cellulitis in need of antibiotic treatment. He is maintained on oral anticoagulation. At this current time patient feels better but overall very negative about his overall status which has been his usual report every admission he has been here. Subjective/Events-last exam Patient doing pretty well Increasing the amount of NovoLog before meals to 16 units from 8 Blood sugar was 334 Levemir given as scheduled Left leg much improved but still painful Dr. Dee will order ultrasound that will be done tomorrow just to see vascular structures He has been on oral anticoagulation without any discontinuation long-term Colostomy functioning well Review of Systems Musculoskeletal: leg pain Focused Exam Lactate Level Objective Exam Vital Signs Vital Signs Date Time Temp Pulse Resp B/P (MAP) Pulse Ox O2 Delivery O2 Flow Rate FiO2 08/29/19 13:00 128 08/29/19 12:00 36.4 18 143/79 (100) 97 Room Air Capillary Refill : Less Than 3 Seconds General Appearance: No Apparent Distress, WD/WN, Chronically ill Respiratory: Lungs Clear Cardiovascular: Regular Rate, Rhythm Neurologic/Psychiatric: Alert, Oriented x3, No Motor/Sensory Deficits, Normal Mood/Affect Skin: Rash (improved left leg erythema) Results/Procedures Lab Patient resulted labs reviewed. Assessment/Plan Assessment and Plan Assess & Plan/Chief Complaint Assessment: Left leg cellulitis ARF on CRI Previous dialysis patient s/p colostomy 2018 HTN DM Plan: IV abx General surgery consultation Monitor labs USG Friday Diagnosis/Problems Diagnosis/Problems (1) Left leg cellulitis Status: Acute (2) Chronic renal failure Status: Acute Qualifiers: Chronic kidney disease stage: unspecified stage Qualified Codes: N18.9 - Chronic kidney disease, unspecified (3) Chronic atrial fibrillation Status: Chronic (4) Generalized weakness Status: Acute (5) Hypertension Status: Chronic Clinical Quality Measures DVT/VTE Risk/Contraindication: Risk Factor Score Per Nursin RFS Level Per Nursing on Admit: 4+=Very High JACKELINE CEE DO Aug 28, 2019 12:01 POS
--- NOTE | 2019-08-28 12:06 | NUR ---
PER RADIOLOGY, NO US TECH UNTIL FRIDAY. DR CEE AND DR ALLEN NOTIFIED. US REORDERED FOR FRIDAY AT 0800.
[2019-08-28] MEDS: cefTRIAXone 1,000 MG/SWFI 10 ML IV PUSH IV SCH ×2 (14:56)
[2019-08-28 15:57] VITALS: BP 120/71
[2019-08-28] MEDS: VANCOMYCIN 1 GM/NS 250 ML IVPB IV SCH ×2 (17:07)
[2019-08-28 19:45] VITALS: BP 128/67
[2019-08-28] MEDS: MELATONIN 3 MG TABLET PO PRN (21:11)
[2019-08-29] VITALS: BP 125/82
[2019-08-29 04:00] VITALS: BP 135/83
[2019-08-29] MEDS: CATHETER FLUSH 10 ML SYR IV SCH ×3 (06:13→20:28)
[2019-08-29] MEDS: predniSONE 5 MG TAB PO SCH ×2 (07:25→17:41)
[2019-08-29] MEDS: inSUlin ASPART (NovoLOG) 1 UNIT/0.01 ML (CHARGE PER UNIT) SC SCH ×3 (07:25→17:41)
[2019-08-29 08:00] VITALS: BP 141/97
--- NOTE | 2019-08-29 09:10 | Progress Note - Surgery ---
DERIAN QUINTANA,MED STUDENT 08/29/19 0909: Subjective Date Seen by a Provider: Aug 29, 2019 Time Seen by a Provider: 08:40 Subjective/Events-last exam Patient seen and examined. He is still complaining of pain in his lower extremities (L>R) that is worse in the lateral aspect of the Left popliteal f lawrence. He mentioned that his heart feels like it is " flip-flopping". No other complaint besides that he doesn't like the food here. Review of Systems General: No Chills; Fatigue HEENT: No Head Aches, No Dysphasia Pulmonary: Dyspnea; No Cough Cardiovascular: Palpitations, Edema; No: Chest Pain Gastrointestinal: No: Nausea, Vomiting Focused Exam Lactate Level 08/26/19 11:42: Lactic Acid Level 1.71 Objective Exam Vital Signs Date Time Temp Pulse Resp B/P (MAP) Pulse Ox O2 Delivery O2 Flow Rate FiO2 08/29/19 04:00 36.8 75 18 135/83 (100) 93 Room Air 08/29/19 00:00 36.8 78 20 125/82 (96) 96 Room Air 08/28/19 19:53 Room Air 08/28/19 19:45 36.6 97 20 128/67 (87) 97 Room Air 08/28/19 15:57 36.0 95 22 120/71 (87) 97 Room Air 08/28/19 11:28 36.0 91 20 147/82 (103) 97 Room Air I & O 08/29/19 07:00 Intake Total 1730 ml Output Total 2125 ml Balance -395 ml Capillary Refill : Less Than 3 Seconds General Appearance: No Apparent Distress, WD/WN, Chronically ill HEENT: PERRL/EOMI; No Scleral Icterus (L), No Scleral Icterus (R) Neck: Non Tender, Supple Respiratory: Chest Non Tender, Lungs Clear, No Accessory Muscle Use, No Respiratory Distress Cardiovascular: No Murmur, Normal Peripheral Pulses, Irregularly Irregular (in A-fib now) Peripheral Pulses: 2+ Radial Pulses (R), 2+ Radial Pulses (L) Gastrointestinal: non tender (ileiostomy right abdomen), soft, no pulsatile mass Extremity: Calf Tenderness (bilaterally), Pedal Edema (+2 on left and +1 on right), Swelling, Other (minimal erythema in left leg, very slight) Neurologic/Psychiatric: Alert, Oriented x3, Normal Mood/Affect Skin: Normal Color, Warm/Dry, Rash (redness left leg) Results Lab Laboratory Tests 08/28/19 09:05: White Blood Count 9.5, Red Blood Count 3.91L, Hemoglobin 10.8L, Hematocrit 35L, Mean Corpuscular Volume 88, Mean Corpuscular Hemoglobin 28, Mean Corpuscular Hemoglobin Concent 31L, Red Cell Distribution Width 16.2H, Platelet Count 157, Mean Platelet Volume 10.2, Neutrophils (%) (Auto) 77H, Lymphocytes (%) (Auto) 15, Monocytes (%) (Auto) 8, Eosinophils (%) (Auto) 0, Basophils (%) (Auto) 0, Neutrophils # (Auto) 7.3, Lymphocytes # (Auto) 1.5, Monocytes # (Auto) 0.7, Eosinophils # (Auto) 0.0, Basophils # (Auto) 0.0, Sodium Level 130L, Potassium Level 4.5, Chloride Level 105, Carbon Dioxide Level 14L, Anion Gap 11, Blood Urea Nitrogen 50H, Creatinine 2.72H, Estimat Glomerular Filtration Rate 22, BUN/Creatinine Ratio 18, Glucose Level 400H, Calcium Level 8.3L, Corrected Calcium 9.2, Total Bilirubin 0.4, Aspartate Amino Transf (AST/SGOT) 11, Alanine Aminotransferase (ALT/SGPT) 18, Alkaline Phosphatase 77, Total Protein 5.6L, Albumin 2.9L 08/28/19 10:39: Glucometer 323H 08/28/19 16:03: Glucometer 296H 08/28/19 21:34: Glucometer 246H 08/29/19 06:08: Glucometer 217H Microbiology 08/26/19 Blood Culture - Preliminary, Resulted No growth Assessment/Plan Assessment/Plan Assessment/Plan Left leg pain (in calf as well) Cellulitis - resolved ??PVD diabetic neuropathy A-fib - Cardiology consult to discuss antiarrhythmics and MARIA LUISA +/- cardioversion US of left leg, arterial and venous to rule out PVD and DVT, cannot be done until Friday. Patient is currently in A-fib and will need Telemetry and to continue Eliquis. Consider using antiarrhythmic to put patient in sinus rhythm and scheduling for MARIA LUISA before possible cardioversion, if patient does not self- cardiovert. Diabetic neuropathy could also be contributing to pt's Lower extremity pain, however this will have to be a diagnosis of exclusion. Pt told he must walk and increase diet. Clinical Quality Measures DVT/VTE Risk/Contraindication: Risk Factor Score Per Nursin RFS Level Per Nursing on Admit: 4+=Very High CAMILO DEE DO 08/29/19 1152: Subjective Time Seen by a Provider: 10:57 Subjective/Events-last exam Pt seen and examined, his main complaint is back pain (that started before he came in). Still having leg pain. Assessment/Plan Assessment/Plan Assessment/Plan Agree with Impression, no real changes in his leg. Hopefully the US will direct us one way or the other in his care. 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 Supervisory-Addendum Brief Verification & Attestation Participated in pt care: history, MDM, physical Personally performed: exam, history, MDM Care discussed with: Medical Student Procedures: n/a Verification and Attestation of Medical Student E/M Service A medical student performed and documented this service in my presence. I reviewed and verified all information documented by the medical student and made modifications to such information, when appropriate. I personally performed the physical exam and medical decision making. Camilo Dee, Aug 29, 2019,11:52 DERIAN QUINTANA,MED STUDENT Aug 29, 2019 09:09 CAMILO HAQUE DO Aug 29, 2019 11:52 POS
--- NOTE | 2019-08-29 09:10 | Cardiology Progress Note ---
Subjective Date Seen by Provider: Aug 29, 2019 Time Seen by Provider: 09:05 Subjective/Events-last exam Patient is laying down in bed, still having pain in his leg. No new complaint Review of Systems General: No Chills, No Night Sweats, No Fatigue, No Malaise, No Appetite, No Other HEENT: No Head Aches, No Visual Changes, No Eye Pain, No Ear Pain; Dysphasia; No Sinus Congestion, No Post Nasal Drip, No Sore Throat, No Other Pulmonary: No Dyspnea, No Cough, No Pleuritic Chest Pain, No Other Cardiovascular: Edema; No: Chest Pain, Palpitations, Orthopnea, Paroxysmal Noc. Dyspnea, Lt Headedness, Other Focused Exam Lactate Level 08/26/19 11:42: Lactic Acid Level 1.71 Objective-Cardiology Exam Last Set of Vital Signs Vital Signs 08/29/19 04:00 Temp 36.8 Pulse 75 Resp 18 B/P (MAP) 135/83 (100) Pulse Ox 93 O2 Delivery Room Air Capillary Refill : Less Than 3 Seconds I&O Intake and Output 08/29/19 00:00 Intake Total 1880 ml Output Total 1850 ml Balance 30 ml Intake Oral 1880 ml Output Urine Total 1050 ml Stool Total 800 ml # Voids 1 General: Alert, Oriented X3, Cooperative HEENT: Atraumatic, PERRLA Neck: Supple, No JVD, No Thyromegaly Lungs: Clear to Auscultation, Normal Air Movement Heart: Normal S1, Normal S2, No Murmurs, Other (A. fib) Abdomen: Normal Bowel Sounds, Soft, No Tenderness, No Hepatosplenomegaly, No Masses Extremities: No Clubbing, No Cyanosis, Normal Pulses, No Tenderness/Swelling Skin: Other (Erythema and swelling of the left leg) Neuro: Normal Gait, Normal Speech, Strength at 5/5 X4 Ext, Normal Tone, Sensation Intact Psych/Mental Status: Mental Status NL, Mood NL Results Lab Laboratory Tests Test 08/28/19 10:39 08/28/19 16:03 08/28/19 21:34 08/29/19 06:08 Range/Units Glucometer 323 H 296 H 246 H 217 H 70-110 MG/DL A/P-Cardiology Admission Diagnosis Cellulitis Coronary artery disease Acute renal failure Paroxysmal atrial fibrillation Assessment/Plan Cellulitis, receiving antibiotic and improving slowly. Continue to monitor Coronary artery disease, history of intervention, cardiac catheterization done in October 2018 showing severe proximal LAD stenosis, had resolute integrity 3 x 26 mm. Maintained on aspirin and Plavix Acute on chronic renal failure, improving slowly, continue on IV fluid and monitor next Hypertension, continue to monitor blood pressure Paroxysmal atrial fibrillation. Maintained on Eliquis and metoprolol, still in atrial fibrillation. I will place him on telemetry again and monitor Clinical Quality Measures DVT/VTE Risk/Contraindication: Risk Factor Score Per Nursin RFS Level Per Nursing on Admit: 4+=Very High PAT JORDAN MD Aug 29, 2019 09:10 POS
[2019-08-29] MEDS: SENNA W/DOCUSATE (SENOKOT S) TABLET PO SCH ×2 (09:14→20:27)
[2019-08-29] MEDS: APIXABAN 2.5 MG (ELIQUIS) TABLET PO SCH ×2 (09:14→20:27)
--- NOTE | 2019-08-29 11:45 | NUR ---
PT HR 116 BP 143/79. PER ICU CAMP ADVISOR PT 120-130'S. DR JORDAN NOTIFIED VIA PHONE. ORDER RECEIVED TO RESTART METOPROLOL 50MG NOW AND THEN BID.
--- NOTE | 2019-08-29 11:59 | Progress Note - Hospitalist ---
Subjective HPI/CC On Admission Date Seen by Provider: Aug 29, 2019 Time Seen by Provider: 10:00 Chief complaint: Left lower extremity cellulitis History of present illness: This is an 89-year-old white male who is known to me from prior admissions who had been at [facility] for 5 months then [facility] following that after colon resection which resulted in severe worsening of renal failure requiring 17 dialysis sessions who presented to the ER with worsening left lower extremity pain found to have cellulitis in need of antibiotic treatment. He is maintained on oral anticoagulation. At this current time patient feels better but overall very negative about his overall status which has been his usual report every admission he has been here. Subjective/Events-last exam Patient doing better Overall feels like he is making progress Family at the bedside including son and his Ultrasound will be completed on the left leg tomorrow Friday Dizziness when out of bed Dr. Sarmiento did see him and ordered telemetry Hydrocodone will be ordered since Tylenol does not really help with the pain We will check labs in the morning to check electrolytes and creatinine Review of Systems Musculoskeletal: leg pain Objective Exam Vital Signs Vital Signs Date Time Temp Pulse Resp B/P (MAP) Pulse Ox O2 Delivery O2 Flow Rate FiO2 08/29/19 13:00 128 08/29/19 12:00 36.4 18 143/79 (100) 97 Room Air Capillary Refill : Less Than 3 Seconds General Appearance: No Apparent Distress, WD/WN, Chronically ill Respiratory: Lungs Clear Cardiovascular: Regular Rate, Rhythm Neurologic/Psychiatric: Alert, Oriented x3, No Motor/Sensory Deficits, Normal Mood/Affect Skin: Normal Color, Warm/Dry, Other (left leg erythema improved) Results/Procedures Lab Patient resulted labs reviewed. Assessment/Plan Assessment and Plan Assess & Plan/Chief Complaint Assessment: Left leg cellulitis ARF on CRI Previous dialysis patient s/p colostomy 2019 HTN DM Plan: IV abx General surgery consultation Check labs in am for creat and sodium OAC Diagnosis/Problems Diagnosis/Problems (1) Left leg cellulitis Status: Acute (2) Chronic renal failure Status: Acute Qualifiers: Chronic kidney disease stage: unspecified stage Qualified Codes: N18.9 - Chronic kidney disease, unspecified (3) Chronic atrial fibrillation Status: Chronic (4) Generalized weakness Status: Acute (5) Hypertension Status: Chronic Clinical Quality Measures DVT/VTE Risk/Contraindication: Risk Factor Score Per Nursin RFS Level Per Nursing on Admit: 4+=Very High JACKELINE CEE DO Aug 29, 2019 11:59 POS
[2019-08-29 12:00] VITALS: BP 143/79
[2019-08-29] MEDS ORDERED: meTOproloL SUCCINATE 50 MG (TOPROL XL) TAB PO NR (12:00)
[2019-08-29] MEDS: cefTRIAXone 1,000 MG/SWFI 10 ML IV PUSH IV SCH ×2 (14:42)
[2019-08-29] MEDS: HYDROcodone/APAP 5 MG/325 MG (LORTAB) TAB PO PRN ×2 (14:48→20:27)
[2019-08-29 15:51] VITALS: BP 134/75
[2019-08-29] MEDS ORDERED: TROUGH ORDER-PHARMACY XX NR (16:00)
[2019-08-29 19:22] VITALS: BP 144/86
[2019-08-29] MEDS: MELATONIN 3 MG TABLET PO PRN (20:27)
[2019-08-29] MEDS: ALPRAZolam 0.25 MG (XANAX) TAB PO PRN (20:27)
[2019-08-30] VITALS: BP 139/84
[2019-08-30 04:00] VITALS: BP 152/83
[2019-08-30 05:44] LABS: BASOPHILS % (AUTO) 0 % (0-10); EOSINOPHILS # (AUTO) 0.1 10^3/uL (0.0-0.3); EOSINOPHILS % (AUTO) 1 % (0-10); HEMATOCRIT 37 % (40-54); HEMOGLOBIN 11.6 G/DL (13.3-17.7); LYMPHOCYTES # (AUTO) 1.8 X 10^3 (1.0-4.0); LYMPHOCYTES % (AUTO) 19 % (12-44); MEAN CORPUSCULAR HEMOGLOBIN 28 PG (25-34); MEAN CORPUSCULAR HGB CONC 31 G/DL (32-36); MEAN CORPUSCULAR VOLUME 89 FL (80-99); MEAN PLATELET VOLUME 10.3 FL (7.4-10.4); MONOCYTES # (AUTO) 0.7 X 10^3 (0.0-1.0); MONOCYTES % (AUTO) 8 % (0-12); NEUTROPHILS # (AUTO) 6.8 X 10^3 (1.8-7.8); NEUTROPHILS % (AUTO) 71 % (42-75); PLATELET COUNT 204 10^3/uL (130-400); RED CELL DISTRIBUTION WIDTH 16.3 % (10.0-14.5); WHITE BLOOD COUNT 9.5 10^3/uL (4.3-11.0)
[2019-08-30 06:02] LABS: ALBUMIN 3.1 GM/DL (3.2-4.5); BILIRUBIN,TOTAL 0.2 MG/DL (0.1-1.0); CALCIUM 8.8 MG/DL (8.5-10.1); CREATININE SERUM 2.69 MG/DL (0.60-1.30); POTASSIUM 4.9 MMOL/L (3.6-5.0); TOTAL PROTEIN 5.9 GM/DL (6.4-8.2)
[2019-08-30] MEDS: CATHETER FLUSH 10 ML SYR IV SCH ×3 (06:32→22:00)
[2019-08-30] MEDS: inSUlin ASPART (NovoLOG) 1 UNIT/0.01 ML (CHARGE PER UNIT) SC SCH ×3 (06:32→16:57)
[2019-08-30] MEDS: predniSONE 5 MG TAB PO SCH ×2 (06:32→16:55)
[2019-08-30 08:00] VITALS: BP 162/75
[2019-08-30] MEDS ORDERED: TROUGH ORDER-PHARMACY XX NR (08:00)
--- NOTE | 2019-08-30 08:21 | Progress Note - Surgery ---
KELLEE COTO MED STUDENT 08/30/19 0821: Subjective Date Seen by a Provider: Aug 30, 2019 Time Seen by a Provider: 07:45 Subjective/Events-last exam Mr. Charles reports feeling better today overall, he reports that the L leg heat, swelling, redness, and pain have all decreased. He complains of feeling light headed when he rolls over or stands up, having SAL[place] and increased SOB when lying down. Also reports having numbness in his L hand and leg yesterday. No changes in weakness. Review of Systems General: No Chills; Fatigue HEENT: No Sinus Congestion, No Sore Throat Pulmonary: Dyspnea; No Cough Cardiovascular: Palpitations, Orthopnea, Edema, Lt Headedness; No: Chest Pain Gastrointestinal: No: Nausea, Vomiting, Abdominal Pain, Diarrhea, Constipation Genitourinary: No Dysuria, No Hematuria Musculoskeletal: back pain, hand pain (arthritis) Neurological: Weakness, Numbness Objective Exam Vital Signs Date Time Temp Pulse Resp B/P (MAP) Pulse Ox O2 Delivery O2 Flow Rate FiO2 08/30/19 07:00 90 08/30/19 04:00 36.2 88 18 152/83 (106) 97 Room Air 08/30/19 01:00 83 08/30/19 00:00 36.0 87 16 139/84 (102) 94 Room Air 08/29/19 20:00 Room Air 08/29/19 19:22 36.1 70 20 144/86 (105) 96 Room Air 08/29/19 19:00 90 08/29/19 15:51 36.0 90 20 134/75 (94) 97 Room Air 08/29/19 13:00 128 08/29/19 12:00 36.4 116 18 143/79 (100) 97 Room Air 08/29/19 11:19 96 08/29/19 09:00 97 Room Air I & O 08/30/19 07:00 Intake Total 1410 ml Output Total 1750 ml Balance -340 ml Capillary Refill : Less Than 3 Seconds General Appearance: No Apparent Distress, Chronically ill HEENT: PERRL/EOMI; No Scleral Icterus (L), No Scleral Icterus (R) Neck: Non Tender, Supple Respiratory: Lungs Clear, No Accessory Muscle Use, No Respiratory Distress, Crackles Cardiovascular: No Murmur, Normal Peripheral Pulses, Irregularly Irregular Peripheral Pulses: 2+ Radial Pulses (R), 2+ Radial Pulses (L) Gastrointestinal: non tender (ileiostomy right abdomen), soft, no pulsatile mass Extremity: Calf Tenderness (bilaterally), Pedal Edema (+2 on left and +1 on right), Swelling (2+ pitting L leg edema, 1+ on R), Other (minimal erythema in left leg) Neurologic/Psychiatric: Alert, Oriented x3, No Motor/Sensory Deficits, Normal Mood/Affect Skin: Normal Color, Warm/Dry, Other (left leg erythema improved) Results Lab Laboratory Tests 08/29/19 11:06: Glucometer 162H 08/29/19 15:56: Glucometer 303H 08/29/19 16:00: Vancomycin Level Trough 22.3H 08/29/19 20:09: Glucometer 213H 08/30/19 04:30: White Blood Count 9.5, Red Blood Count 4.17L, Hemoglobin 11.6L, Hematocrit 37L, Mean Corpuscular Volume 89, Mean Corpuscular Hemoglobin 28, Mean Corpuscular Hemoglobin Concent 31L, Red Cell Distribution Width 16.3H, Platelet Count 204, Mean Platelet Volume 10.3, Neutrophils (%) (Auto) 71, Lymphocytes (%) (Auto) 19, Monocytes (%) (Auto) 8, Eosinophils (%) (Auto) 1, Basophils (%) (Auto) 0, Neutrophils # (Auto) 6.8, Lymphocytes # (Auto) 1.8, Monocytes # (Auto) 0.7, Eosinophils # (Auto) 0.1, Basophils # (Auto) 0.0, Sodium Level 136, Potassium Level 4.9, Chloride Level 112H, Carbon Dioxide Level 13L, Anion Gap 11, Blood Urea Nitrogen 54H, Creatinine 2.69H, Estimat Glomerular Filtration Rate 23, BUN/Creatinine Ratio 20, Glucose Level 136H, Calcium Level 8.8, Corrected Calcium 9.5, Total Bilirubin 0.2, Aspartate Amino Transf (AST/SGOT) 20, Alanine Aminotransferase (ALT/SGPT) 27, Alkaline Phosphatase 95, Total Protein 5.9L, Albumin 3.1L 08/30/19 06:12: Glucometer 130H Microbiology 08/26/19 Blood Culture - Preliminary, Resulted No growth Assessment/Plan Assessment/Plan Assessment/Plan L leg cellulitis Neuropathy Afib Monitor L leg for changes in pain or erythema. Awaiting results of LE ultrasound. Clinical Quality Measures DVT/VTE Risk/Contraindication: Risk Factor Score Per Nursin RFS Level Per Nursing on Admit: 4+=Very High BRADLEY ALLEN DO 08/30/19 1523: Subjective Time Seen by a Provider: 12:02 Subjective/Events-last exam Pt seen and examined, no new leg complaints. Assessment/Plan Assessment/Plan Assessment/Plan US Arterial and Venous were both negative for any problems; no stenosis and no DVT. Most likely his pain is neuropathic, I will sign off and can resee if n eeded. Supervisory-Addendum Brief Verification & Attestation Participated in pt care: history, MDM, physical Personally performed: exam, history, MDM Care discussed with: Medical Student Procedures: n/a Verification and Attestation of Medical Student E/M Service A medical student performed and documented this service in my presence. I reviewed and verified all information documented by the medical student and made modifications to such information, when appropriate. I personally performed the physical exam and medical decision making. Bradley Allen, Aug 30, 2019,15:23 KELLEE COTO MED STUDENT Aug 30, 2019 08:21 BRADLEY HAQUE DO Aug 30, 2019 15:23 POS
[2019-08-30] MEDS: meTOproloL SUCCINATE 50 MG (TOPROL XL) TAB PO SCH (08:45)
[2019-08-30] MEDS: APIXABAN 2.5 MG (ELIQUIS) TABLET PO SCH ×2 (08:45→20:16)
[2019-08-30] MEDS: SENNA W/DOCUSATE (SENOKOT S) TABLET PO SCH ×2 (08:45→20:16)
--- NOTE | 2019-08-30 10:20 | Diagnostic Imaging Report ---
PROCEDURE: US left lower extremity venous. TECHNIQUE: Multiple real-time grayscale images were obtained over the left lower extremity in various projections. Additional duplex Doppler and color Doppler images were also obtained. INDICATION: Left leg pain. EXAMINATION: Grayscale and color Doppler evaluation of the deep veins of the left lower extremity were performed with waveform analysis. FINDINGS: Continuous venous flow is present. No intraluminal filling defect is identified. There is normal compressibility and response to augmentation. No abnormal perivascular fluid collection is identified. IMPRESSION: No ultrasound evidence of left lower extremity deep venous thrombosis. Dictated by: Dictated on workstation # [id number]
--- NOTE | 2019-08-30 10:23 | Diagnostic Imaging Report ---
INDICATION: Cellulitis and pain in the left leg. Grayscale and color Doppler evaluation of the left lower extremity arteries are performed with spectral analysis. Normal arterial waveforms are seen throughout the left lower extremity without evidence of occlusion. There is no focal velocity elevation. No filling defect is identified. IMPRESSION: No ultrasound evidence of stenosis or filling defect in the left lower extremity arteries. Dictated by: Dictated on workstation # [id number]
[2019-08-30 12:00] VITALS: BP 136/76
--- NOTE | 2019-08-30 13:04 | Cardiology Progress Note ---
Cardiology SOAP Progress Note Subjective: No cardiac complaints. Objective: I&O/Vital Signs 08/30/19 08/30/19 08/30/19 08/30/19 04:00 07:00 08:00 08:30 Temp 36.2 36.0 Pulse 88 90 88 Resp 18 20 B/P (MAP) 152/83 (106) 162/75 (104) Pulse Ox 97 96 O2 Delivery Room Air Room Air Room Air 08/30/19 08/30/19 12:00 12:22 Temp 35.9 Pulse 62 90 Resp 18 B/P (MAP) 136/76 (96) Pulse Ox 95 O2 Delivery Room Air 08/30/19 00:00 Intake Total 1060 ml Output Total 1500 ml Balance -440 ml Weight (Pounds): 194 Weight (Ounces): 2.0 Weight (Calculated Kilograms): [id number] Constitutional: appears stated age, AAO x 3; No apparent distress; well- developed, well-nourished Respiratory: chest is bilaterally symmetric, lungs clear to auscultation Cardiovascular: irregularly irregular, S1 and S2, systolic murmur Gastrointestional: soft, audible bowel sounds; No spleenomegaly Extremities: normal range of motion, non-tender, normal inspection; No clubbing, No cyanosis; no lower extremity edema bilateral; No significant edema Neurologic/Psychiatric: no motor/sensory deficits, alert, normal mood/affect, oriented x 3, power is 5/5 both on sides Skin: normal color, warm/dry; No rash, No ulcerations Results/Procedures: Labs Laboratory Tests 08/29/19 15:56: Glucometer 303H 08/29/19 16:00: Vancomycin Level Trough 22.3H 08/29/19 20:09: Glucometer 213H 08/30/19 04:30: White Blood Count 9.5, Red Blood Count 4.17L, Hemoglobin 11.6L, Hematocrit 37L, Mean Corpuscular Volume 89, Mean Corpuscular Hemoglobin 28, Mean Corpuscular Hemoglobin Concent 31L, Red Cell Distribution Width 16.3H, Platelet Count 204, Mean Platelet Volume 10.3, Neutrophils (%) (Auto) 71, Lymphocytes (%) (Auto) 19, Monocytes (%) (Auto) 8, Eosinophils (%) (Auto) 1, Basophils (%) (Auto) 0, Neutrophils # (Auto) 6.8, Lymphocytes # (Auto) 1.8, Monocytes # (Auto) 0.7, Eosinophils # (Auto) 0.1, Basophils # (Auto) 0.0, Sodium Level 136, Potassium Level 4.9, Chloride Level 112H, Carbon Dioxide Level 13L, Anion Gap 11, Blood Urea Nitrogen 54H, Creatinine 2.69H, Estimat Glomerular Filtration Rate 23, BUN/Creatinine Ratio 20, Glucose Level 136H, Calcium Level 8.8, Corrected Calcium 9.5, Total Bilirubin 0.2, Aspartate Amino Transf (AST/SGOT) 20, Alanine Aminotransferase (ALT/SGPT) 27, Alkaline Phosphatase 95, Total Protein 5.9L, Albumin 3.1L 08/30/19 06:12: Glucometer 130H 08/30/19 08:10: Vancomycin Level Trough 19.6 08/30/19 11:04: Glucometer 218H Microbiology 08/26/19 Blood Culture - Preliminary, Resulted No growth A/P: Assessment/Dx: Lower extremity cellulitis, CAD, history of PCI, Shortness of breath, LVH, Paroxysmal atrial fibrillation, Hypertension, End-stage renal disease. Plan: Lower extremity cellulitis, on IV antibiotics. Defer to the primary team. CAD, history of PCI, coronary angiography was done on 11/19/2018 for unstable angina. Severe proximal LAD stenosis treated successfully with a drug-eluting stent. Drug-eluting stent was resolute integrity 3.0 x 26 mm. Patient needs to continue Plavix. Shortness of breath, no acute congestive heart failure on examination. We will request an echocardiogram. On left heart catheterization LVEDP was 23 mmHg, suggesting diastolic dysfunction. Patient was on Lasix. LVH, no acute issues. Paroxysmal atrial fibrillation, continue Eliquis and metoprolol. Eliquis is renal dosed. Hypertension, continue outpatient medical therapy. End-stage renal disease. Patient follows with nephrology as an outpatient. All medication should be renal dosed. Thank you for your consultation. Please call me if you have any questions. Mireille Clark MD, FACP, FACC, FSCAI, FHRS, CCDS Interventional Cardiology Cardiac Electrophysiology Vascular Medicine and Endovascular Interventions Abner CLARK MD Aug 30, 2019 1:04 pm POS
[2019-08-30] MEDS: cefTRIAXone 1,000 MG/SWFI 10 ML IV PUSH IV SCH ×2 (13:39)
--- NOTE | 2019-08-30 14:00 | NUR ---
Pastoral care visit.
[2019-08-30 15:51] VITALS: BP 136/91
--- NOTE | 2019-08-30 15:56 | NUR ---
DISCHARGE PLANNING: Talked with patient regarding his POC for discharge . He would like to go back to his apt at [facility]. He has had C in the past and utilized [facility] for this service, and he would like to use them again, and specifically would like the nurse Elizabeth who he had before. Addendum: 08/30/19 at 1600 by BHANU PRIDE RN called and left message with his daughter Radha about POC for discharge intended for 08/31
[2019-08-30 19:49] VITALS: BP 178/84
--- NOTE | 2019-08-30 20:24 | Progress Note ---
Subjective Subjective/Events-last exam Patient states that he is feeling better. Has not been up out of bed much. Tolerating PO diet. BM yesterday. Review of Systems Pulmonary: Dyspnea; No Cough Cardiovascular: Edema; No: Chest Pain, Palpitations Gastrointestinal: No: Nausea, Vomiting, Abdominal Pain Genitourinary: No Dysuria, No Frequency, No Hematuria Neurological: Weakness Objective Exam Last Set of Vital Signs Vital Signs Date Time Temp Pulse Resp B/P (MAP) Pulse Ox O2 Delivery O2 Flow Rate FiO2 08/30/19 19:49 36.2 78 20 178/84 (115) 91 Room Air Capillary Refill : Less Than 3 Seconds I&O Intake and Output 08/30/19 00:00 Intake Total 1210 ml Output Total 2225 ml Balance -1015 ml Intake Oral 1210 ml Output Urine Total 1275 ml Stool Total 950 ml General: Alert, Oriented X3, No Acute Distress HEENT: Mucous Memb Moist/[place] Lungs: Clear to Auscultation, Normal Air Movement Heart: No Murmurs Abdomen: Normal Bowel Sounds, Other (Colostomy in place, no leak or redness) Extremities: No Edema, No Tenderness/Swelling Skin: No Rashes, No Breakdown Neuro: Normal Speech, Sensation Intact, Cranial Nerves 3-12 NL Psych/Mental Status: Mental Status NL, Mood NL Results/Procedures Lab Laboratory Tests 08/30/19 04:30: White Blood Count 9.5, Red Blood Count 4.17L, Hemoglobin 11.6L, Hematocrit 37L, Mean Corpuscular Volume 89, Mean Corpuscular Hemoglobin 28, Mean Corpuscular Hemoglobin Concent 31L, Red Cell Distribution Width 16.3H, Platelet Count 204, Mean Platelet Volume 10.3, Neutrophils (%) (Auto) 71, Lymphocytes (%) (Auto) 19, Monocytes (%) (Auto) 8, Eosinophils (%) (Auto) 1, Basophils (%) (Auto) 0, Neutrophils # (Auto) 6.8, Lymphocytes # (Auto) 1.8, Monocytes # (Auto) 0.7, Eosinophils # (Auto) 0.1, Basophils # (Auto) 0.0, Sodium Level 136, Potassium Level 4.9, Chloride Level 112H, Carbon Dioxide Level 13L, Anion Gap 11, Blood Urea Nitrogen 54H, Creatinine 2.69H, Estimat Glomerular Filtration Rate 23, BUN/Creatinine Ratio 20, Glucose Level 136H, Calcium Level 8.8, Corrected Calcium 9.5, Total Bilirubin 0.2, Aspartate Amino Transf (AST/SGOT) 20, Alanine Aminotransferase (ALT/SGPT) 27, Alkaline Phosphatase 95, Total Protein 5.9L, Albumin 3.1L 08/30/19 06:12: Glucometer 130H 08/30/19 08:10: Vancomycin Level Trough 19.6 08/30/19 11:04: Glucometer 218H 08/30/19 16:29: Glucometer 129H Microbiology 08/26/19 Blood Culture - Preliminary, Resulted No growth Assessment/Plan Assessment/Plan (1) Left leg cellulitis Status: Acute Assessment & Plan: 08/30: IV antibiotics, will transition to PO (2) Acute renal failure superimposed on stage 3 chronic kidney disease Status: Acute Assessment & Plan: 08/30: Cr at baseline, Will continue to monitor, renally dose all medications Qualifiers: Qualified Codes: N17.9 - Acute kidney failure, unspecified; N18.3 - Chronic kidney disease, stage 3 (moderate) (3) Normocytic anemia Status: Chronic Assessment & Plan: 08/30: No signs of acute bleeding, Continue to monitor (4) Hypertension Status: Chronic Qualifiers: Qualified Codes: I10 - Essential (primary) hypertension (5) Chronic atrial fibrillation Status: Chronic (6) Generalized weakness Status: Acute Assessment & Plan: 08/30: Continue with PT/OT (7) Colostomy care Status: Chronic (8) DVT prophylaxis Status: Acute Assessment & Plan: Oral anticoagulation Clinical Quality Measures DVT/VTE Risk/Contraindication: Risk Factor Score Per Nursin RFS Level Per Nursing on Admit: 4+=Very High ANGELIKA REED MD Aug 30, 2019 20:24 POS
[2019-08-31] VITALS: BP 133/80
[2019-08-31 04:00] VITALS: BP 155/95
[2019-08-31 06:21] LABS: BASOPHILS # (AUTO) 0.1 10^3/uL (0.0-0.1); BASOPHILS % (AUTO) 1 % (0-10); EOSINOPHILS # (AUTO) 0.1 10^3/uL (0.0-0.3); EOSINOPHILS % (AUTO) 1 % (0-10); HEMATOCRIT 37 % (40-54); HEMOGLOBIN 11.3 G/DL (13.3-17.7); LYMPHOCYTES # (AUTO) 1.9 X 10^3 (1.0-4.0); LYMPHOCYTES % (AUTO) 22 % (12-44); MEAN CORPUSCULAR HEMOGLOBIN 28 PG (25-34); MEAN CORPUSCULAR HGB CONC 30 G/DL (32-36); MEAN CORPUSCULAR VOLUME 91 FL (80-99); MEAN PLATELET VOLUME 9.8 FL (7.4-10.4); MONOCYTES # (AUTO) 0.7 X 10^3 (0.0-1.0); MONOCYTES % (AUTO) 8 % (0-12); NEUTROPHILS % (AUTO) 69 % (42-75); PLATELET COUNT 209 10^3/uL (130-400); RED CELL DISTRIBUTION WIDTH 16.2 % (10.0-14.5); WHITE BLOOD COUNT 8.7 10^3/uL (4.3-11.0)
[2019-08-31 06:40] LABS: CALCIUM 8.7 MG/DL (8.5-10.1); CREATININE SERUM 2.54 MG/DL (0.60-1.30)
[2019-08-31] MEDS: inSUlin ASPART (NovoLOG) 1 UNIT/0.01 ML (CHARGE PER UNIT) SC SCH ×2 (07:36→11:23)
[2019-08-31] MEDS: CATHETER FLUSH 10 ML SYR IV SCH (07:37)
[2019-08-31] MEDS: predniSONE 5 MG TAB PO SCH (07:39)
[2019-08-31 08:00] VITALS: BP 146/87
[2019-08-31] MEDS: meTOproloL SUCCINATE 50 MG (TOPROL XL) TAB PO SCH (08:22)
[2019-08-31] MEDS: SENNA W/DOCUSATE (SENOKOT S) TABLET PO SCH (08:22)
[2019-08-31] MEDS: APIXABAN 2.5 MG (ELIQUIS) TABLET PO SCH (08:22)
--- NOTE | 2019-08-31 10:25 | Cardiology Progress Note ---
Cardiology SOAP Progress Note Subjective: No cardiac complaints. Objective: I&O/Vital Signs 08/31/19 08/31/19 08/31/19 08/31/19 00:00 00:50 04:00 07:00 Temp 36.6 36.4 Pulse 97 114 95 113 Resp 16 20 B/P (MAP) 133/80 (97) 155/95 (115) Pulse Ox 96 97 O2 Delivery Room Air Room Air 08/31/19 08/31/19 08:00 08:00 Temp 36.4 Pulse 89 Resp 20 B/P (MAP) 146/87 (106) Pulse Ox 98 98 O2 Delivery Room Air Room Air 08/30/19 23:59 Intake Total 1770 ml Output Total 1225 ml Balance 545 ml Weight (Pounds): 194 Weight (Ounces): 2.0 Weight (Calculated Kilograms): 88.714005 Constitutional: appears stated age, AAO x 3; No apparent distress; well- developed, well-nourished Respiratory: chest is bilaterally symmetric, lungs clear to auscultation Cardiovascular: irregularly irregular, S1 and S2, systolic murmur Gastrointestional: soft, audible bowel sounds; No spleenomegaly Extremities: normal range of motion, non-tender, normal inspection; No clubbing, No cyanosis; no lower extremity edema bilateral; No significant edema Neurologic/Psychiatric: no motor/sensory deficits, alert, normal mood/affect, oriented x 3, power is 5/5 both on sides Skin: normal color, warm/dry; No rash, No ulcerations Results/Procedures: Labs Laboratory Tests 08/30/19 11:04: Glucometer 218H 08/30/19 16:29: Glucometer 129H 08/30/19 20:42: Glucometer 125H 08/31/19 05:20: White Blood Count 8.7, Red Blood Count 4.09L, Hemoglobin 11.3L, Hematocrit 37L, Mean Corpuscular Volume 91, Mean Corpuscular Hemoglobin 28, Mean Corpuscular Hemoglobin Concent 30L, Red Cell Distribution Width 16.2H, Platelet Count 209, Mean Platelet Volume 9.8, Neutrophils (%) (Auto) 69, Lymphocytes (%) (Auto) 22, Monocytes (%) (Auto) 8, Eosinophils (%) (Auto) 1, Basophils (%) (Auto) 1, Neutrophils # (Auto) 6.0, Lymphocytes # (Auto) 1.9, Monocytes # (Auto) 0.7, Eosinophils # (Auto) 0.1, Basophils # (Auto) 0.1, Sodium Level 136, Potassium Level 5.0, Chloride Level 111H, Carbon Dioxide Level 14L, Anion Gap 11, Blood Urea Nitrogen 55H, Creatinine 2.54H, Estimat Glomerular Filtration Rate 24, BUN/Creatinine Ratio 22, Glucose Level 268H, Calcium Level 8.7 08/31/19 06:40: Glucometer 213H Microbiology 08/26/19 Blood Culture - Preliminary, Resulted No growth A/P: Assessment/Dx: Lower extremity cellulitis, CAD, history of PCI, Shortness of breath, LVH, Paroxysmal atrial fibrillation, Hypertension, End-stage renal disease. Plan: Lower extremity cellulitis, on IV antibiotics. Defer to the primary team. CAD, history of PCI, coronary angiography was done on 11/19/2018 for unstable angina. Severe proximal LAD stenosis treated successfully with a drug-eluting stent. Drug-eluting stent was resolute integrity 3.0 x 26 mm. Patient needs to continue Plavix. Shortness of breath, no acute congestive heart failure on examination. We will request an echocardiogram. On left heart catheterization LVEDP was 23 mmHg, suggesting diastolic dysfunction. Patient was on Lasix. LVH, no acute issues. Paroxysmal atrial fibrillation, continue Eliquis and metoprolol. Eliquis is renal dosed. Hypertension, continue outpatient medical therapy. End-stage renal disease. Patient follows with nephrology as an outpatient. All medication should be renal dosed. Thank you for your consultation. Please call me if you have any questions. Mireille Clark MD, FACP, FACC, FSCAI, FHRS, CCDS Interventional Cardiology Cardiac Electrophysiology Vascular Medicine and Endovascular Interventions Abner CLARK MD Aug 31, 2019 10:25 POS
--- NOTE | 2019-08-31 11:07 | Discharge Summary ---
Diagnosis/Chief Complaint Date of Admission Aug 26, 2019 at 14:22 Date of Discharge 08/31/19 Admission Diagnosis Admission Diagnosis See Problem list Discharge Diagnosis See below Problems/Diagnosis: (1) Left leg cellulitis Assessment & Plan: 08/30: IV antibiotics, will transition to PO 08/31: PO antibiotics, discussed the importance of compression to help with swelling in his legs to help with healing Status: Acute (2) Acute renal failure superimposed on stage 3 chronic kidney disease Assessment & Plan: 08/30: Cr at baseline, Will continue to monitor, renally dose all medications Qualifiers: Qualified Codes: N17.9 - Acute kidney failure, unspecified; N18.3 - Chronic kidney disease, stage 3 (moderate) Status: Acute (3) Normocytic anemia Assessment & Plan: 08/30: No signs of acute bleeding, Continue to monitor Status: Chronic (4) Hypertension Qualifiers: Qualified Codes: I10 - Essential (primary) hypertension Status: Chronic (5) Chronic atrial fibrillation Status: Chronic (6) Generalized weakness Assessment & Plan: 08/30: Continue with PT/OT Status: Acute (7) Colostomy care Status: Chronic (8) DVT prophylaxis Assessment & Plan: Oral anticoagulation Status: Acute Discharge Summary-Simple/Stand Consultations Dr Clark: Cardiology Dr Chaudhry: General Surgery Discharge Physical Examination Allergies: Coded Allergies: No Known Drug Allergies (Verified , 09/20/19) Vitals & I&Os Vital Sign - Last 12Hours Date Time Temp Pulse Resp B/P (MAP) Pulse Ox O2 Delivery O2 Flow Rate FiO2 08/31/19 08:00 98 Room Air 08/31/19 08:00 36.4 89 20 146/87 (106) Intake and Output 08/31/19 00:00 Intake Total 1770 ml Output Total 1225 ml Balance 545 ml General Appearance: Alert, Oriented X3, No Acute Distress HEENT: Mucous Memb Moist/[place] Respiratory: Clear to Auscultation, Normal Air Movement Cardiovascular: Regular Rate, No Murmurs Abdominal: Normal Bowel Sounds, Soft, Other (Colostomy draining) Extremities: Other (2+ pitting edema bilateral LE) Neuro: Normal Speech, Sensation Intact, Cranial Nerves 3-12 NL Hospital Course See final discharge diagnosis. Discussion & Recommendations 89 yo male with multiple comorbidities that presented with increasing LE swelling and pain found to have A/C renal failure. Discharge Condition at discharge Poor prognosis Instructions to patient/family Please see electronic discharge instructions given to patient. Discharge Medications Reviewed and agree with Discharge Medication list on patient's Discharge Instruction sheet Clinical Quality Measures DVT/VTE Risk/Contraindication: Risk Factor Score Per Nursin RFS Level Per Nursing on Admit: 4+=Very High ANGELIKA REED MD Aug 31, 2019 11:07
[2019-08-31] MEDS ORDERED: CEFD300C3 PO (11:10)
[2019-08-31] MEDS ORDERED: PAMI30VI8 SQ (11:10)
[2019-08-31] MEDS ORDERED: METO50TA7 PO (11:10)
--- NOTE | 2019-08-31 11:18 | D/C HH Face to Face Order ---
Discharge Summary Reconcile Patient Problems Problems Reviewed?: Yes Instructions for Patient [facility], Assessment/Instructions Left Lower Extremity Cellulitis CKD IV Normocytic Anemia CAD Atrial fibrillation HTN Colostomy Debilty Advanced Age Physician to follow Patient: Radha Discharge Diet for Home: ADA Diet, Cardiac Diet Hospital Course Date of Admission: Aug 26, 2019 at 14:22 Admission Diagnosis : Family Physician/Provider: Eva Timmons Date of Discharge: 08/31/19 Discharge Diagnosis: - LLE Cellulitis - CKD IV - Normocytic Anemia - CAD - Atrial Fibrillation - HTN - Colostomy - Debility - Advanced Age Hospital Course: 89 yo M that was admitted for cellulitis and increasing shortness of breath. Patient was started on IV antibiotics and given some diuretics. He was found to have LLE swelling and US was neg for any DVT. Patient worked with PT due to debility while being in the hospital. He will be discharged home with [facility] for nursing and PT. Labs and Pending Lab Test: Laboratory Tests 08/30/19 16:29: Glucometer 129H 08/30/19 20:42: Glucometer 125H 08/31/19 05:20: White Blood Count 8.7, Red Blood Count 4.09L, Hemoglobin 11.3L, Hematocrit 37L, Mean Corpuscular Volume 91, Mean Corpuscular Hemoglobin 28, Mean Corpuscular Hemoglobin Concent 30L, Red Cell Distribution Width 16.2H, Platelet Count 209, Mean Platelet Volume 9.8, Neutrophils (%) (Auto) 69, Lymphocytes (%) (Auto) 22, Monocytes (%) (Auto) 8, Eosinophils (%) (Auto) 1, Basophils (%) (Auto) 1, Neutrophils # (Auto) 6.0, Lymphocytes # (Auto) 1.9, Monocytes # (Auto) 0.7, Eosinophils # (Auto) 0.1, Basophils # (Auto) 0.1, Sodium Level 136, Potassium Level 5.0, Chloride Level 111H, Carbon Dioxide Level 14L, Anion Gap 11, Blood Urea Nitrogen 55H, Creatinine 2.54H, Estimat Glomerular Filtration Rate 24, BUN/Creatinine Ratio 22, Glucose Level 268H, Calcium Level 8.7 08/31/19 06:40: Glucometer 213H 08/31/19 10:51: Glucometer 177H Microbiology 08/26/19 Blood Culture - Preliminary, Resulted No growth Home Meds Active Cefdinir 300 Mg Capsule 300 Mg PO BID Metoprolol Succinate 50 Mg Tab.er.24h 50 Mg PO DAILY Humalog (Insulin Lispro) 100 Unit/1 Ml Cartridge 16 Unit SQ TIDAC 30 Days Reported Vitamin D2 (Ergocalciferol (Vitamin D2)) 50,000 Unit Capsule 50,000 Unit PO WEEK #12 FILLED 05-26-19 Trulicity (Dulaglutide) 0.75 Mg/0.5 Ml Pen.injctr 0.75 Mg SQ MO Nitroglycerin 0.4 Mg Tab.subl 0.4 Mg SL UD PRN Furosemide 40 Mg Tablet 40 Mg PO DAILY Potassium Chloride 20 Meq Tab.er.prt 20 Meq PO DAILY LAST FILLED #30 04-19-19 Plavix (Clopidogrel Bisulfate) 75 Mg Tablet 75 Mg PO DAILY Tums Smoothies (Calcium Carbonate) 300 Mg Tab.chew 600 Mg PO TID Eliquis (Apixaban) 2.5 Mg Tablet 2.5 Mg PO DAILY Metoprolol Succinate 100 Mg Tab.er.24h 100 Mg PO BID Atorvastatin Calcium 10 Mg Tablet 10 Mg PO HS Pantoprazole Sodium 40 Mg Tablet.dr 40 Mg PO DAILY Flomax (Tamsulosin HCl) 0.4 Mg Cap 0.4 Mg PO DAILY Tylenol Arthritis (Acetaminophen) 650 Mg Tablet.er 1,300 Mg PO DAILY PRN Levemir Flextouch (Insulin Detemir) 100 Unit/1 Ml Insuln.pen 30 Unit SQ BID Calcitriol 0.25 Mcg Capsule 0.25 Mcg PO MOWEFR Prednisone 5 Mg Tablet 5 Mg PO BID Patient Allergies: Coded Allergies: No Known Drug Allergies (Verified , 11/18/18) Height (Feet): 5 Height (Inches): 7.00 Weight (Pounds): 194 Weight (Ounces): 2.0 New Medications: Cefdinir (Cefdinir) 300 Mg Capsule 300 MG PO BID, #10 CAP Metoprolol Succinate (Metoprolol Succinate) 50 Mg Tab.er.24h 50 MG PO DAILY, #30 TAB Changed Medications: Insulin Lispro (Humalog) 100 Unit/1 Ml Cartridge 16 UNIT SQ TIDAC for 30 Days, EA (Changed from: 8 UNIT) Continued Medications: Acetaminophen (Tylenol Arthritis) 650 Mg Tablet.er 1300 MG PO DAILY PRN for PAIN-MILD, TAB Apixaban (Eliquis) 2.5 Mg Tablet 2.5 MG PO DAILY, TAB Atorvastatin Calcium (Atorvastatin Calcium) 10 Mg Tablet 10 MG PO HS, TAB Calcitriol (Calcitriol) 0.25 Mcg Capsule 0.25 MCG PO MoWeFr, CAP Calcium Carbonate (Tums Smoothies) 300 Mg Tab.chew 600 MG PO TID, TAB Clopidogrel Bisulfate (Plavix) 75 Mg Tablet 75 MG PO DAILY, TAB Dulaglutide (Trulicity) 0.75 Mg/0.5 Ml Pen.injctr 0.75 MG SQ Mo, VIAL Ergocalciferol (Vitamin D2) (Vitamin D2) 50,000 Unit Capsule 68527 UNIT PO WEEK, CAP #12 FILLED 05-26-19 Insulin Detemir (Levemir Flextouch) 100 Unit/1 Ml Insuln.pen 30 UNIT SQ BID, EA Nitroglycerin (Nitroglycerin) 0.4 Mg Tab.subl 0.4 MG SL UD PRN for CHEST PAIN, TAB Pantoprazole Sodium (Pantoprazole Sodium) 40 Mg Tablet.dr 40 MG PO DAILY, TAB Prednisone (Prednisone) 5 Mg Tablet 5 MG PO BID, TAB Tamsulosin HCl (Flomax) 0.4 Mg Cap 0.4 MG PO DAILY, CAP Discontinued Medications: Furosemide (Furosemide) 40 Mg Tablet 40 MG PO DAILY, TAB Metoprolol Succinate (Metoprolol Succinate) 100 Mg Tab.er.24h 100 MG PO BID, TAB Potassium Chloride (Potassium Chloride) 20 Meq Tab.er.prt 20 MEQ PO DAILY, TAB LAST FILLED #30 04-19-19 Home Health Need/Face to Face Date of Face to Face: Aug 31, 2019 Clinical Findings: Generalized weakness and fatigue, Instability, Shortness of breath, Unsteady gait I have seen Pt [id number]: Yes Discharged To: Home Diagnosis/Conditions: See Above Patient is Homebound due to: Merary fall risk due to instabilty, Muscle weakness, Shortness of breath/distress Homebound Status Due to the above stated illness, injury or surgical procedure (medical condition or diagnosis) and associated clinical findings, the patient is homebound because of his/her inability to leave home except with aid of a supportive device and/or person AND leaving the home requires a considerable and taxing effort or is medically contraindicated. Pt req the following assistanc: Aid of another person, [facility] Nursing Orders Home Health Services Order: Nursing Services, Physical Therapy-Evaluate & Treat [facility] APPT WITH EVA TIMMONS ON Fri @ 1140 Home Health Infusion Therapy Line Start Date: Aug 26, 2019 Therapy Orders Therapy Orders: OT (must have SN or PT order), Physical Therapy, PT to assess for OT Therapy Specific Orders: Teach enviro modifications/safety, Gait training, Increase strength/endurance Certify Stmt I certify that this patient is under my care and that I, a nurse practitioner or a physician; a zoning assistant working with me, had a face to face encounter that - meets the physician face to face encounter requirements with this patient as dated. Discharge Physical Exam General: Alert, Oriented X3, Cooperative, No Acute Distress Lungs: Clear to Auscultation, Normal Air Movement, Other (Increased work of breathing with minimal activity) Heart: Regular Rate, No Murmurs Abdomen: Normal Bowel Sounds, Soft, Other (Colostomy present on Right, C/D/I) Extremities: Other (Mild swelling of LLE, US neg) Skin: No Rashes, No Breakdown Neuro: Sensation Intact, Cranial Nerves 3-12 NL Psych/Mental Status: Mental Status NL, Mood NL ANGELIKA REED MD Aug 31, 2019 11:18 POS
--- OUTSIDE RECORDS SUMMARY | 2019-09-21 09:18 | XMS REPORT ---
Author Author Dony Osullivan Doctor Organization [facility] Address Unknown Phone Unavailable Care Team Providers Care It Investment/Portfolio Manager Name Role Phone Migration, Doctor Unavailable Unavailable PROBLEMS Type Condition ICD9-CM Code [id number] Code Onset Dates Condition S tatus SNOMED Code Problem Primary insomnia F51.01 Active 397 2004 Problem Essential hypertension I10 Active 97961938 Problem Gait disturbance R26.9 Active 223 85232 Problem Type 2 diabetes mellitus wit h diabetic polyneuropathy, unspecified whether usp insulin use E11.42 Active 89225533 Problem Erectile dysfunction due to diseases classified elsewhere N52.1 Active 877248834 Problem Gastroesophageal reflux disease without esophagitis K21.9 Active 742881056 Problem Atherosclerosis of [place] ar [place] of both lower extremities, with unspecified presence of clinical manifestation I70.203 Active 349931326662212 Problem Chest pain due to myocardial ischemia, unspecified ischemic chest pain type I25.9 Active 841991947 Problem End stage renal disease N18.6 Active 04625632 Problem 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 Active 628516028 Problem Rheumatoid arthritis, involv ing unspecified site, unspecified rheumatoid factor presence M06.9 Active 17934034 Problem Benign prostatic hyperplasia with lower urinary tract symptoms N40.1 Active 30662134996061 Problem 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 Acti ve 52314921 Problem Severe episode of recurrent major depressive disorder, with psychotic features F33.3 Active 55714192 Problem Morbid (severe) obesity due to excess calories E66 .01 Active 394770217 Problem Type 2 diabetes mellitus with unspecified complications E11.8 Active 27637081 Problem Insomnia, unspecified type G47.00 Act tao 650153965 Problem Esophageal stricture K22.2 Active 35331015 Problem 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 Active 630837392 Problem Stage III chronic kidney disease N18.3 Active 346786819 Problem 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 Act tao 48303723 Problem Dialysis patient Z99.2 Active 251 952650 Problem Nightmares F51.5 Active 752170999 Problem Type 2 diabetes mellitus wit h hyperglycemia, without long-term current use of insulin E11.65 Active 60540441 Problem 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 Active 916201169409 7 Problem Chronic atrial fibrillation I48.2 Ac tive 209173519 Problem Long-term insulin use Z79.4 Active 072013562 Problem Pressure injury of left heel, stage 2 L89.622 Active 900323455 Problem 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 9 Active 925611274 ALLERGIES No Information ENCOUNTERS Encounter Location Date Diagnosis [facility] [address] [facility] [id number] [address] [place] [address] Jun, [facility] [address] [facility] [id number] [address] [place] [address] May, [facility] [address] [facility] [id number] [address] [place] [address] May, [facility] [address] [facility] [id number] [address] [place] [address] May, [facility] [address] [facility] [id number] [address] [place] [address] May, Non-healing wound of left he el S91.302A [facility] [address] [facility] [id number] [address] [place] [address] May, [facility] [address] [facility] [id number] [address] [place] [address] Apr, [facility] [address] [facility] [id number] [address] [place] [address] Apr, Type 2 diabetes mellitus wit h hyperglycemia, without long-term current use of insulin E11.65 ; Frail elderly R54 ; Chronic atrial fibrillation I48.2 ; Essential hypertension I10 and H/O ileostomy Z98.890 [facility] [address] [id number] [address] [place] [address] Apr, [facility] [address] [id number] [address] [place] [address] Apr, [facility] [address] [id number] [address] [place] [address] Apr, [facility] [address] [id number] [address] [place] [address] Apr, [facility] [address] [id number] [address] [place] [address] Apr, [facility] [address] [facility] [id number] [address] [place] [address] Apr, Via [facility] [address] [place] [id number] Apr, Type 2 diabetes mellitus with hyperglyce deep, without long-term current use of insulin E11.65 ; Pressure injury of left heel, stage 2 L89.622 and End stage renal disease N18.6 [facility] [address] [facility] [id number] [address] [place] [address] Apr, [facility] [address] [id number] [address] [place] [address] Mar, [facility] [address] [id number] [address] [place] [address] Mar, [facility] [address] [facility] [id number] [address] [place] [address] Mar, Type 2 diabetes mellitus wit h hyperglycemia, without long-term current use of insulin E11.65 ; Chronic atrial fibrillation I48.2 ; Generalized edema R60.1 ; Poor vision H54.7 ; Requires assistance with activities of daily living (ADL) Z74.1 and Chronic kidney disease, unspecified CKD stage N18.9 [facility] [address] [facility] [id number] [address] [place] [address] Mar, [facility] [address] [facility] [id number] [address] [place] [address] Mar, [facility] [address] [facility] [id number] [address] [place] [address] Mar, Essential hypertension I10 a nd Type 2 diabetes mellitus with diabetic chronic kidney disease E11.22 [facility] [address] [facility] [id number] [address] [place] [address] 17 Mar, 2019 [facility] [address] [facility] [id number] [address] [place] [address] Mar, [facility] [address] [facility] [id number] [address] [place] [address] Mar, Chronic atrial fibrillation I48.2 [facility] [address] [facility] [id number] [address] [place] [address] Mar, Type 2 diabetes mellitus wit h hyperglycemia, without long-term current use of insulin E11.65 [facility] [address] [facility] [id number] [address] [place] [address] Mar, [facility] [address] [facility] [id number] [address] [place] [address] Mar, Type 2 diabetes mellitus wit h diabetic chronic kidney disease E11.22 ; Chronic kidney disease, stage 4 (severe) N18.4 and 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 [facility] [address] [facility] [id number] [address] [place] [address] Mar, Chronic atrial fibrillation I48.2 ; Coronary artery disease of [place] artery of [place] heart with stable angina pectoris I25.118 ; 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 ; Type 2 diabetes mellitus with unspecified complications E11.8 ; Benign prostatic hyperplasia with lower urinary tract symptoms N40.1 ; Gastroesophageal reflux disease without esophagitis K21.9 ; End stage renal disease N18.6 ; Hypersalivation K11.7 ; Essential hypertension I10 ; Primary insomnia F51.01 and Rheumatoid arthritis, involving unspecified site, unspecified rheumatoid factor presence M06.9 [facility] [address] [id number] [address] [place] [address] Feb, [facility] [address] [place] [id number] Feb, Localized edema R60.0 ; Hypersalivation K11.7 ; Mouth pain K13.79 ; Primary insomnia F51.01 and End stage renal disease N18.6 [facility] [address] [id number] [address] [place] [id number] Feb, Caries K02.9 [facility] [address] [facility] [id number] [address] [place] [address] Feb, Chest pain due to myocardial ischemia, unspecified ischemic chest pain type I25.9 [facility] [address] [facility] [id number] [address] [place] [address] Feb, [place] [address] [id number] [address] [place] [address] Feb, Localized edema R60.0 [facility] [address] [facility] [id number] [address] [place] [address] Feb, Via [email or web address] [facility] [address] [place] [id number] Feb, 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 ; End stage renal disease N18.6 ; Type 2 diabetes mellitus with diabetic chronic kidney disease, unspecified CKD stage, unspecified whether usp insulin use E11.22 ; Primary insomnia F51.01 ; History of Clostridioides difficile infection Z86.19 and Cough R05 [facility] [address] [id number] [address] [place] [id number] Feb, Dental examination Z01.20 [facility] [address] [id number] [address] [place] [address] Feb, [facility] [address] [facility] [id number] [address] [place] [address] Feb, [place] [address] [facility] [id number] [address] [place] [address] January, Primary insomnia F51.01 and History of GI bleed Z87.19 [place] [address] [facility] [id number] [address] [place] [address] January, Primary insomnia F51.01 and History of GI bleed Z87.19 [facility] [address] [place] [id number] January, 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 difficile diarrhea A04.72 ; H/O ileos mikey Z98.890 ; Dizziness R42 ; Weakness R53.1 ; Nausea R11.0 ; Severe episode of recurrent major depressive disorder, with psychotic features F33.3 ; Insomnia, unspecified type G47.00 ; End stage renal disease N18.6 ; USP current use of insulin Z79.4 ; Type 2 diabetes mellitus with unspecified complications E11.8 and End of life care Z51.5 [facility] [address] [place] [id number] January, Type 2 diabetes mellitus with hyperglyce deep, without long-term current use of insulin E11.65 ; End stage renal disease N18.6 ; Rheumatoid arthritis, involving unspecified site, unspecified rheumatoid factor presence M06.9 ; Paroxysmal atrial fibrillation I48.0 and Severe episode of recurrent major depressive disorder, with psychotic features F33.3 [place] [address] [facility] [id number] [address] [place] [address] January, [place] [address] [address] January, [facility] [address] [place] [id number] January, Type 2 diabetes mellitus with hyperglyce deep, without long-term current use of insulin E11.65 ; End stage renal disease N18.6 ; Rheumatoid arthritis, involving unspecified site, unspecified rheumatoid factor presence M06.9 ; Primary insomnia F51.01 ; Paroxysmal atrial fibrillation I48.0 and Hyponatremia E87.1 [place] [address] [address] Dec, End stage renal disease N18. 6 and Type 2 diabetes mellitus with hyperglycemia, without long-term current use of insulin E11.65 [place] [address] [address] Dec, [place] [address] [address] Dec, [place] [address] [address] Dec, [place] [address] [address] Dec, Type 2 diabetes mellitus wit hout complications E11.9 ; USP current use of insulin Z79.4 and Hyperglycemia R73.9 [place] [address] [address] Nov, Gastroesophageal reflux dise ase without esophagitis K21.9 [facility] [address] [place] [id number] [address] [place] [address] Nov, Pain of right lower extremit y M79.604 [place] [address] [place] [id number] [address] [place] [address] Nov, Shortness of breath R06.02 [facility] [address] [place] [id number] [address] [place] [address] Oct, Multiple skin nodules R22.9 [place] [address] [facility] [id number] [address] [place] [address] 13 Oct, 2018 Cough R05 ; Pneumonia of bot h lower lobes due to infectious organism J18.1 and Type 2 diabetes mellitus with hyperglycemia, without long- term current use of insulin E11.65 [place] [address] [facility] [id number] [address] [place] [address] Oct, [place] [address] [place] [id number] [address] [place] [address] Sep, Abscess L02.91 [place] [address] [place] [id number] [place] [address] Sep, Bronchitis J40 ; Abscess L02 .91 and Arthralgia, unspecified joint M25.50 [place] [address] [place] [id number] [address] [place] [address] Aug, Type 2 diabetes mellitus wit h hyperglycemia, without long-term current use of insulin E11.65 [place] [address] [facility] [id number] [address] [place] [address] Aug, [place] [address] [place] [id number] [address] [place] [address] Aug, Type 2 diabetes mellitus wit h hyperglycemia, without long-term current use of insulin E11.65 ; Seborrheic keratoses L82.1 ; Other viral warts B07.8 and End stage renal disease N18.6 [place] [address] [place] [id number] [address] [place] [address] Aug, Type 2 diabetes mellitus wit h hyperglycemia, without long-term current use of insulin E11.65 [facility] [address] [facility] [id number] [address] [place] [address] Jul, Type 2 diabetes mellitus wit h hyperglycemia, without long-term current use of insulin E11.65 [place] [address] [facility] [id number] [address] [place] [address] Jul, Type 2 diabetes mellitus wit h hyperglycemia, without long-term current use of insulin E11.65 ; Erectile dysfunction due to diseases classified elsewhere N52.1 and History of abscess of skin and subcutaneous tissue Z87.2 [facility] [address] [facility] [id number] [address] [place] [address] Jul, [facility] [address] [id number] [address] [place] [address] Jul, [facility] [address] [facility] [id number] [address] [place] [address] Jun, Type 2 diabetes mellitus wit h hyperglycemia, without long-term current use of insulin E11.65 [place] [address] [facility] [id number] [address] [place] [address] Jun, [place] [address] [facility] [id number] [address] [place] [address] Jun, Type 2 diabetes mellitus wit h hyperglycemia, without long-term current use of insulin E11.65 [facility] [address] [facility] [id number] [address] [place] [address] Jun, Dysuria R30.0 and Acute cyst itis without hematuria N30.00 [place] [address] [facility] [id number] [address] [place] [address] Jun, Type 2 diabetes mellitus wit h hyperglycemia, without long-term current use of insulin E11.65 [place] [address] [facility] [id number] [address] [place] [address] May, [facility] [address] [facility] [id number] [address] [place] [address] May, Bacterial skin infection of upper extremity L08.9 [place] [address] [facility] [id number] [address] [place] [address] May, Type 2 diabetes mellitus wit h hyperglycemia, without long-term current use of insulin E11.65 [place] [address] [facility] [id number] [address] [place] [address] Apr, End stage renal disease N18. 6 [place] [address] [id number] [address] [place] [address] Apr, [facility] [address] [id number] [address] [place] [address] Apr, [facility] [address] [id number] [address] [place] [address] Apr, Type 2 diabetes mellitus wit h hyperglycemia, without long-term current use of insulin E11.65 [facility] [address] [id number] [address] [place] [address] Apr, [facility] [address] [id number] [address] [place] [address] Apr, [facility] [address] [facility] [id number] [address] [place] [address] Apr, [facility] [address] [place] [id number] Apr, Type 2 diabetes mellitus with hyperglyce deep, without long-term current use of insulin E11.65 [...] hyperplasia with lower urinary tract symptoms N40.1 [facility] [address] [facility] [id number] [address] [place] [address] Apr, [facility] [address] [facility] [id number] [address] [place] [address] Mar, [facility] [address] [facility] [id number] [address] [place] [address] Mar, [facility] [address] [place] [id number] Mar, Type 2 diabetes mellitus with hyperglyce deep, without long-term current use of insulin E11.65 ; End stage renal disease N18.6 and Shortness of breath R06.02 [facility] [address] [facility] [id number] [address] [place] [address] 14 Mar, 2018 Slow transit constipation K5 9.01 [facility] [address] [facility] [id number] [address] [place] [address] Mar, [facility] [address] [facility] [id number] [address] [place] [address] Mar, [facility] [address] [facility] [id number] [address] [place] [address] Mar, [facility] [address] [facility] [id number] [address] [place] [address] Feb, [facility] [address] [place] [id number] Feb, Encounter for examination for admission to senior living Z02.2 ; Type 2 diabetes mellitus with hyperglycemia, without long-term current use of insulin E11.65 ; 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 ; Osteopenia of multiple sites M85.89 ; End stage renal disease N18.6 ; Dialysis patient Z99.2 and Rheumatoid arthritis, involving unspecified site, unspecified rheumatoid factor presence M06.9 [place] [address] [facility] [id number] [address] [place] [address] Feb, [facility] [address] [place] [address] 28 May, 16 Dental examination Z01.20 [facility] [address] [place] [address] 27 May, 16 [facility] [address] [place] [address] 08 May, 16 Dental examination Z01.20 [facility] [address] [place] [address] 06 May, 16 [facility] [address] [place] [address] 15 Apr, 16 Dental examination Z01.20 [facility] [address] [place] [address] Dec, 16 Dental examination Z01.20 [facility] [address] [place] [address] Oct, 16 Dental examination Z01.20 [facility] [address] [place] [address] Oct, 16 Dental examination Z01.20 [facility] [address] [place] [address] Sep, 16 Dental examination Z01.20 [facility] [address] [place] [address] Aug, 15 Dental examination Z01.20 [facility] [address] [place] [address] Jul, 15 Dental examination Z01.20 [facility] [address] [place] [address] Jul, 15 [facility] examination Z01.20 [facility] [address] [place] [address] Jun, 15 Dental examination Z01.20 [facility] [address] [id number] [address] [place] [address] Dec, [facility] [address] [id number] [address] [place] [address] Dec, [facility] [address] [id number] [address] [place] [address] Mar, [facility] [address] [id number] [address] [place] [address] Mar, [facility] [address] [id number] [address] [place] [address] Mar, [facility] [address] [id number] [address] [place] [address] Feb, [facility] [address] [id number] [address] [place] [address] January, [facility] [address] [id number] [address] [place] [address] January, IMMUNIZATIONS No Known Immunizations SOCIAL HISTORY Never Assessed REASON FOR VISIT PLAN OF CARE VITAL SIGNS Heart Rate 82 bpm 2014-04-06 Blood pressure systolic 150 mmHg 2014-04-06 Blood pressure diastolic 81 mmHg 2014-04-06 MEDICATIONS Unknown Medications RESULTS No Results PROCEDURES Procedure Date Ordered Result Body Site EXTRAC ERUPTED TOOTH/EXPOSED ROOT April 06, 2014 INSTRUCTIONS MEDICATIONS ADMINISTERED No Known Medications MEDICAL [...] Hospitalization History Vin Colon, Sepsis, Illeostomy, C di ff 01/2019
--- OUTSIDE RECORDS SUMMARY | 2019-09-21 09:18 | XMS REPORT ---
Author Author Dony Osullivan Doctor Organization [facility] Address Unknown Phone Unavailable Care Team Providers Care Crystal Grower Name Role Phone Migration, Doctor Unavailable Unavailable PROBLEMS Type Condition ICD9-CM Code [id number] Code Onset Dates Condition S tatus SNOMED Code Problem Primary insomnia F51.01 Active 397 2004 Problem Essential hypertension I10 Active 77587305 Problem Gait disturbance R26.9 Active 223 39736 Problem Type 2 diabetes mellitus wit h diabetic polyneuropathy, unspecified whether assisted insulin use E11.42 Active 67566581 Problem Erectile dysfunction due to diseases classified elsewhere N52.1 Active 761291203 Problem Gastroesophageal reflux disease without esophagitis K21.9 Active 106643851 Problem Atherosclerosis of [place] of both lower extremities, with unspecified presence of clinical manifestation I70.203 Active 461703026549930 Problem Chest pain due to myocardial ischemia, unspecified ischemic chest pain type I25.9 Active 449999074 Problem End stage renal disease N18.6 Active 16090302 Problem 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 Active 087464051 Problem Rheumatoid arthritis, involv ing unspecified site, unspecified rheumatoid factor presence M06.9 Active 27360325 Problem Benign prostatic hyperplasia with lower urinary tract symptoms N40.1 Active 68876658062595 Problem 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 Acti ve 77963528 Problem Severe episode of recurrent major depressive disorder, with psychotic features F33.3 Active 09516821 Problem Morbid (severe) obesity due to excess calories E66 .01 Active 048804376 Problem Type 2 diabetes mellitus with unspecified complications E11.8 Active 35192298 Problem Insomnia, unspecified type G47.00 Act tao 199810652 Problem Esophageal stricture K22.2 Active 87598380 Problem 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 Active 969772054 Problem Stage III chronic kidney disease N18.3 Active 884401181 Problem 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 Act tao 45959960 Problem Dialysis patient Z99.2 Active 251 077490 Problem Nightmares F51.5 Active 183308172 Problem Type 2 diabetes mellitus wit h hyperglycemia, without long-term current use of insulin E11.65 Active 95167868 Problem 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 Active 660004043345 7 Problem Chronic atrial fibrillation I48.2 Ac tive 735287054 Problem Long-term insulin use Z79.4 Active 462925304 Problem Pressure injury of left heel, stage 2 L89.622 Active 646307736 Problem qualification 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 9 Active 494850042 ALLERGIES No Information ENCOUNTERS Encounter Location Date Diagnosis [facility] [address] [facility] [id number] [address] [place] [phone] Jun, [facility] [address] [facility] [id number] [address] [place] [address] May, [facility] [address] [facility] [id number] [address] [place] [address] May, [facility] [address] [facility] [id number] [address] [place] [address] May, [facility] [address] [facility] [id number] [address] [place] [address] May, Non-healing wound of left he el S91.302A [facility] [address] [facility] [id number] [address] [place] [address] May, [facility] [address] [facility] [id number] [address] [place] [phone] Apr, [facility] [address] [facility] [id number] [address] [place] [address] Apr, Type 2 diabetes mellitus wit h hyperglycemia, without long-term current use of insulin E11.65 ; Frail elderly R54 ; Chronic atrial fibrillation I48.2 ; Essential hypertension I10 and H/O ileostomy Z98.890 [facility] [address] [id number] [address] [place] [address] Apr, [facility] [address] [id number] [address] [place] [address] Apr, [facility] [address] [id number] [address] [place] [phone] Apr, [place] [address] [id number] [address] [place] [address] Apr, [place] [address] [id number] [address] [place] [address] Apr, [place] [address] [facility] [id number] [address] [place] [address] Apr, Via [facility] [address] [place] [id number] Apr, Type 2 diabetes mellitus with hyperglyce deep, without long-term current use of insulin E11.65 ; Pressure injury of left heel, stage 2 L89.622 and End stage renal disease N18.6 [place] [address] [facility] [id number] [address] [place] [address] Apr, [facility] [address] [id number] [address] [place] [address] Mar, [place] [address] [id number] [address] [place] [address] Mar, [place] [address] [facility] [id number] [address] [place] [address] Mar, Type 2 diabetes mellitus wit h hyperglycemia, without long-term current use of insulin E11.65 ; Chronic atrial fibrillation I48.2 ; Generalized edema R60.1 ; Poor vision H54.7 ; Requires assistance with activities of daily living (ADL) Z74.1 and Chronic kidney disease, unspecified CKD stage N18.9 [facility] [address] [facility] [id number] [address] [place] [phone] Mar, [place] [address] [facility] [id number] [address] [place] [address] Mar, [place] [address] [facility] [id number] [address] [place] [address] Mar, Essential hypertension I10 a nd Type 2 diabetes mellitus with diabetic chronic kidney disease E11.22 [place] [address] [facility] [id number] [address] [place] [phone] 17 Mar, 2019 [place] [address] [facility] [id number] [address] [place] [address] Mar, [place] [address] [facility] [id number] [address] [place] [address] Mar, Chronic atrial fibrillation I48.2 [place] [address] [facility] [id number] [address] [place] [phone] Mar, Type 2 diabetes mellitus wit h hyperglycemia, without long-term current use of insulin E11.65 [place] [address] [facility] [id number] [address] [place] [address] Mar, [place] [address] [facility] [id number] [address] [place] [address] Mar, Type 2 diabetes mellitus wit h diabetic chronic kidney disease E11.22 ; Chronic kidney disease, stage 4 (severe) N18.4 and qualification engineer current use of insulin Z79.4 [place] [address] [facility] [id number] [address] [place] [address] Mar, Chronic atrial fibrillation I48.2 ; Coronary artery disease of [place] artery of [place] heart with stable angina pectoris I25.118 ; qualification engineer current use of insulin Z79.4 ; Type 2 diabetes mellitus with unspecified complications E11.8 ; Benign prostatic hyperplasia with lower urinary tract symptoms N40.1 ; Gastroesophageal reflux disease without esophagitis K21.9 ; End stage renal disease N18.6 ; Hypersalivation K11.7 ; Essential hypertension I10 ; Primary insomnia F51.01 and Rheumatoid arthritis, involving unspecified site, unspecified rheumatoid factor presence M06.9 [facility] [address] [id number] [address] [place] [address] Feb, Via [facility] [address] [place] [id number] Feb, Localized edema R60.0 ; Hypersalivation K11.7 ; Mouth pain K13.79 ; Primary insomnia F51.01 and End stage renal disease N18.6 [facility] [address] [id number] [address] [place] [id number] Feb, Caries K02.9 [facility] [address] [facility] [id number] [address] [place] [phone] Feb, Chest pain due to myocardial ischemia, unspecified ischemic chest pain type I25.9 [place] [address] [facility] [id number] [address] [place] [phone] Feb, [place] [address] [id number] [address] [place] [address] Feb, Localized edema R60.0 [facility] [address] [facility] [id number] [address] [place] [address] Feb, Via [facility] [address] [place] [id number] Feb, 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 ; End stage renal disease N18.6 ; Type 2 diabetes mellitus with diabetic chronic kidney disease, unspecified CKD stage, unspecified whether assisted insulin use E11.22 ; Primary insomnia F51.01 ; History of Clostridioides difficile infection Z86.19 and Cough R05 [facility] [address] [id number] [address] [place] [id number] Feb, Dental examination Z01.20 [facility] [address] [id number] [address] [place] [address] Feb, [facility] [address] [facility] [id number] [address] [place] [phone] Feb, [place] [address] [facility] [id number] [address] [place] [address] January, Primary insomnia F51.01 and History of GI bleed Z87.19 [place] [address] [facility] [id number] [address] [place] [address] January, Primary insomnia F51.01 and History of GI bleed Z87.19 [email or web address] [address] [place] [id number] January, qualification engineer current use of 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 difficile diarrhea A04.72 ; H/O ileos mikey Z98.890 ; Dizziness R42 ; Weakness R53.1 ; Nausea R11.0 ; Severe episode of recurrent major depressive disorder, with psychotic features F33.3 ; Insomnia, unspecified type G47.00 ; End stage renal disease N18.6 ; MCC current use of insulin Z79.4 ; Type 2 diabetes mellitus with unspecified complications E11.8 and End of life care Z51.5 [email or web address] [address] [place] [id number] January, Type 2 diabetes mellitus with hyperglyce deep, without long-term current use of insulin E11.65 ; End stage renal disease N18.6 ; Rheumatoid arthritis, involving unspecified site, unspecified rheumatoid factor presence M06.9 ; Paroxysmal atrial fibrillation I48.0 and Severe episode of recurrent major depressive disorder, with psychotic features F33.3 [place] [address] [facility] [id number] [address] [place] [address] January, [place] [address] [address] January, [facility] [address] [place] [id number] January, Type 2 diabetes mellitus with hyperglyce deep, without long-term current use of insulin E11.65 ; End stage renal disease N18.6 ; Rheumatoid arthritis, involving unspecified site, unspecified rheumatoid factor presence M06.9 ; Primary insomnia F51.01 ; Paroxysmal atrial fibrillation I48.0 and Hyponatremia E87.1 [place] [address] [address] Dec, End stage renal disease N18. 6 and Type 2 diabetes mellitus with hyperglycemia, without long-term current use of insulin E11.65 [place] [address] [address] Dec, [place] [address] [address] Dec, [place] [address] [phone] Dec, [place] [address] [address] Dec, Type 2 diabetes mellitus wit hout complications E11.9 ; MCC current use of insulin Z79.4 and Hyperglycemia R73.9 [place] [address] [address] Nov, Gastroesophageal reflux dise ase without esophagitis K21.9 [facility] [address] [place] [id number] [address] [place] [address] Nov, Pain of right lower extremit y M79.604 [place] [address] [place] [id number] [address] [place] [address] Nov, Shortness of breath R06.02 [facility] [address] [place] [id number] [address] [place] [address] Oct, Multiple skin nodules R22.9 [place] [address] [facility] [id number] [address] [place] [phone] 13 Oct, 2018 Cough R05 ; Pneumonia of bot h lower lobes due to infectious organism J18.1 and Type 2 diabetes mellitus with hyperglycemia, without long- term current use of insulin E11.65 [place] [address] [facility] [id number] [address] [place] [address] Oct, [place] [address] [place] [id number] [address] [place] [address] Sep, Abscess L02.91 [place] [address] [place] [id number] [place] [phone] Sep, Bronchitis J40 ; Abscess L02 .91 and Arthralgia, unspecified joint M25.50 [place] [address] [place] [id number] [address] [place] [address] Aug, Type 2 diabetes mellitus wit h hyperglycemia, without long-term current use of insulin E11.65 [place] [address] [facility] [id number] [address] [place] [address] Aug, [place] [address] [place] [id number] [address] [place] [address] Aug, Type 2 diabetes mellitus wit h hyperglycemia, without long-term current use of insulin E11.65 ; Seborrheic keratoses L82.1 ; Other viral warts B07.8 and End stage renal disease N18.6 [place] [address] [place] [id number] [address] [place] [address] Aug, Type 2 diabetes mellitus wit h hyperglycemia, without long-term current use of insulin E11.65 [place] [address] [facility] [id number] [address] [place] [phone] Jul, Type 2 diabetes mellitus wit h hyperglycemia, without long-term current use of insulin E11.65 [place] [address] [facility] [id number] [address] [place] [address] Jul, Type 2 diabetes mellitus wit h hyperglycemia, without long-term current use of insulin E11.65 ; Erectile dysfunction due to diseases classified elsewhere N52.1 and History of abscess of skin and subcutaneous tissue Z87.2 [facility] [address] [facility] [id number] [address] [place] [address] Jul, [facility] [address] [id number] [address] [place] [address] Jul, [facility] [address] [facility] [id number] [address] [place] [phone] Jun, Type 2 diabetes mellitus wit h hyperglycemia, without long-term current use of insulin E11.65 [place] [address] [facility] [id number] [address] [place] [address] Jun, [place] [address] [facility] [id number] [address] [place] [address] Jun, Type 2 diabetes mellitus wit h hyperglycemia, without long-term current use of insulin E11.65 [facility] [address] [facility] [id number] [address] [place] [address] Jun, Dysuria R30.0 and Acute cyst itis without hematuria N30.00 [place] [address] [facility] [id number] [address] [place] [address] Jun, Type 2 diabetes mellitus wit h hyperglycemia, without long-term current use of insulin E11.65 [place] [address] [facility] [id number] [address] [place] [address] May, [facility] [address] [facility] [id number] [address] [place] [address] May, Bacterial skin infection of upper extremity L08.9 [place] [address] [facility] [id number] [address] [place] [address] May, Type 2 diabetes mellitus wit h hyperglycemia, without long-term current use of insulin E11.65 [place] [address] [facility] [id number] [address] [place] [address] Apr, End stage renal disease N18. 6 [place] [address] [id number] [address] [place] [address] Apr, [facility] [address] [id number] [address] [place] [address] Apr, [facility] [address] [id number] [address] [place] [address] Apr, Type 2 diabetes mellitus wit h hyperglycemia, without long-term current use of insulin E11.65 [facility] [address] [id number] [address] [place] [address] Apr, [facility] [address] [id number] [address] [place] [address] Apr, [facility] [address] [facility] [id number] [address] [place] [address] Apr, Via [email or web address] [address] [place] [id number] Apr, Type 2 diabetes mellitus with hyperglyce [...] with lower urinary tract symptoms N40.1 [facility] [address] [facility] [id number] [address] [place] [address] Apr, [facility] [address] [facility] [id number] [address] [place] [address] Mar, [facility] [address] [facility] [id number] [address] [place] [address] Mar, [facility] [email or web address] [address] [place] [id number] Mar, Type 2 diabetes mellitus with hyperglyce deep, without long-term current use of insulin E11.65 ; End stage renal disease N18.6 and Shortness of breath R06.02 [facility] [address] [facility] [id number] [address] [place] [address] 14 Mar, 2018 Slow transit constipation K5 9.01 [facility] [address] [facility] [id number] [address] [place] [address] Mar, [facility] [address] [facility] [id number] [address] [place] [address] Mar, [facility] [address] [facility] [id number] [address] [place] [address] Mar, [facility] [address] [facility] [id number] [address] [place] [address] Feb, [facility] [address] [place] [id number] Feb, Encounter for [facility] Z02.2 ; Type 2 diabetes mellitus with hyperglycemia, without long-term current use of insulin E11.65 ; 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 ; Osteopenia of multiple sites M85.89 ; End stage renal disease N18.6 ; Dialysis patient Z99.2 and Rheumatoid arthritis, involving unspecified site, unspecified rheumatoid factor presence M06.9 [place] [address] [facility] [id number] [address] [place] [address] Feb, [facility] [address] [place] [address] 28 May, 16 Dental examination Z01.20 [facility] [address] [place] [address] 27 May, 16 [facility] [place] [address] [place] [address] 08 May, 16 Dental examination Z01.20 [facility] [place] [address] [place] [address] 06 May, 16 [facility] [place] [address] [place] [address] 15 Apr, 16 Dental examination Z01.20 [facility] [address] [place] [address] Dec, 16 Dental examination Z01.20 [facility] [place] [address] [place] [address] Oct, 16 Dental examination Z01.20 [facility] [address] [place] [address] Oct, 16 Dental examination Z01.20 [facility] [place] [address] [place] [address] Sep, 16 Dental examination Z01.20 [facility] [place] [address] [place] [address] Aug, 15 Dental examination Z01.20 [facility] [place] [address] [place] [address] Jul, 15 Dental examination Z01.20 [facility] [place] [address] [place] [address] Jul, 15 Dental examination Z01.20 [facility] [address] [place] [address] Jun, 15 Dental examination Z01.20 [facility] [address] [id number] [address] [place] [address] Dec, [facility] [address] [id number] [address] [place] [address] Dec, [facility] [address] [id number] [address] [place] [address] Mar, [facility] [address] [id number] [address] [place] [phone] Mar, [facility] [address] [id number] [address] [place] [address] Mar, [facility] [address] [id number] [address] [place] [address] Feb, [facility] [address] [id number] [address] [place] [phone] January, [facility] [address] [id number] [address] [place] [address] January, IMMUNIZATIONS No Known Immunizations SOCIAL HISTORY Never Assessed REASON FOR VISIT PLAN OF CARE VITAL SIGNS Blood pressure systolic 137 mmHg 2014-03-21 Blood pressure diastolic 72 mmHg 2014-03-21 MEDICATIONS Unknown Medications RESULTS No Results PROCEDURES Procedure Date Ordered Result Body Site PANORAMIC FILM SEE ALSO CODE [id number] March 21, 2014 BITEWINGS - FOUR FILMS March 21, 2014 COMP ORAL EVALUATION - NEW/EST PT March 21, 2014 INSTRUCTIONS MEDICATIONS ADMINISTERED No Known Medications [...]
--- OUTSIDE RECORDS SUMMARY | 2019-09-21 09:50 | XMS REPORT | Continuity of Care Document ---
Demographics x Preferred Language Unknown Marital Status Unknown Hinduism Affiliation Unknown Race Unknown Ethnic Group Unknown Author Organization Unknown Address Unknown Phone Unavailable Allergies Active Description Code Type Severity Reaction Onset Reported/Identified Relationship to Patient Clinical Status Yes No known allergies Drug N/A N/A Yes No Known Medication Allergies Drug N/A N/A Yes No Known Drug Allergies [id number] Drug Allergy Unknown N/A 09/20/2019 Medications There is no data. Problems Date Dx Coded Attending Type Code Diagnosis Diagnosed By 02/15/2014 GABE DDS, MARILIA B V72 .2 DENTAL EXAMINATION 02/15/2014 GABE DDS, MARILIA B V72 .2 DENTAL EXAMINATION 03/21/2014 GABE DDS, MARILIA B V72 .2 DENTAL EXAMINATION 03/30/2014 GABE DDS, MARILIA B V72 .2 DENTAL EXAMINATION 04/06/2014 GABE DDS, MARILIA B V72 .2 DENTAL EXAMINATION 06/25/2016 W G56.01 Car pal tunnel syndrome, right upper limb 06/25/2016 W M05.79 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 w/o org/sys involv 06/25/2016 W Z79.52 Saurabh g term (current) use of systemic steroids 06/25/2016 W G56.01 Car pal tunnel syndrome, right upper limb 06/25/2016 W M05.79 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 w/o org/sys involv 06/26/2016 W G56.01 Car pal tunnel syndrome, right upper limb 06/26/2016 W M05.79 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 w/o org/sys involv 07/04/2017 Simon Irene MD L57.0 Actinic keratosis 09/29/2017 Simon Irene MD L08.8 9 abrasion, face, infected 09/29/2017 Simon Irene MD L98.9 Lesion of skin of face 09/29/2017 Simon Irene MD R55 Syncope and collapse 09/29/2017 Simon Irene MD T14.8 xxA Other injury of unspecified body region, initial encounter 12/29/2017 Simon Irene MD J20.9 Bronchitis, acute with mild bronchospasm 02/23/2018 Simon Irene MD L02.9 3 Carbuncle 02/23/2018 Simon Irene MD R06.0 9 Dyspnea on exertion 02/23/2018 Simon Irene MD R07.8 9 Chest pain, atypical 02/23/2018 Simon Irene MD D64.9 Anemia 02/23/2018 Simon Irene MD I50.9 Heart failure 04/01/2018 KRISTA EPSTEIN MD Ot D64 .9 ANEMIA, UNSPECIFIED 04/01/2018 KRISTA EPSTEIN MD Ot 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 04/01/2018 KRISTA EPSTEIN MD Ot 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 04/01/2018 KRISTA EPSTEIN MD Ot M06 .9 RHEUMATOID ARTHRITIS, UNSPECIFIED 04/01/2018 KRISTA EPSTEIN MD Ot N18 .6 END STAGE RENAL DISEASE 04/01/2018 KRISTA EPSTEIN MD Ot R07 .2 PRECORDIAL PAIN 04/01/2018 KRISTA EPSTEIN MD Ot R94 .8 ABNORMAL RESULTS OF FUNCTION STUDIES OF 04/01/2018 KRISTA EPSTEIN MD Ot Z79 .4 COMPUTER ANALYST SUPERVISOR (CURRENT) USE OF INSULIN 04/01/2018 KRISTA EPSTEIN MD Ot Z79.899 OTHER COMPUTER ANALYST SUPERVISOR (CURRENT) DRUG THERAPY 04/01/2018 KRISTA EPSTEIN MD Ot Z87.891 PERSONAL HISTORY OF NICOTINE DEPENDENCE 04/01/2018 KRISTA EPSTEIN MD Ot Z99 .2 DEPENDENCE ON RENAL DIALYSIS 04/01/2018 KRISTA PESTEIN MD Ot D64 .9 ANEMIA, UNSPECIFIED 04/01/2018 KRISTA EPSTEIN MD Ot 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 04/01/2018 KRISTA EPSTEIN MD Ot 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 04/01/2018 KRISTA EPSTEIN MD Ot M06 .9 RHEUMATOID ARTHRITIS, UNSPECIFIED 04/01/2018 KRISTA EPSTEIN MD Ot N18 .6 END STAGE RENAL DISEASE 04/01/2018 KRISTA EPSTEIN MD Ot R07 .2 PRECORDIAL PAIN 04/01/2018 KRISTA EPSTEIN MD Ot R94 .8 ABNORMAL RESULTS OF FUNCTION STUDIES OF 04/01/2018 KRISTA EPSTEIN MD Ot Z79 .4 GROUP HOME (CURRENT) USE OF INSULIN 04/01/2018 KRISTA EPSTEIN MD Ot Z79.899 OTHER GROUP HOME (CURRENT) DRUG THERAPY 04/01/2018 KRISTA EPSTEIN MD Ot Z87.891 PERSONAL HISTORY OF NICOTINE DEPENDENCE 04/01/2018 KRISTA EPSTEIN MD Ot Z99 .2 DEPENDENCE ON RENAL DIALYSIS 04/03/2018 KRISTA EPSTEIN MD Ot D64 .9 ANEMIA, UNSPECIFIED 04/03/2018 KRISTA EPSTEIN MD Ot 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 04/03/2018 KRISTA EPSTEIN MD Ot 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 04/03/2018 KRISTA EPSTEIN MD Ot M06 .9 RHEUMATOID ARTHRITIS, UNSPECIFIED 04/03/2018 KRISTA EPSTEIN MD Ot N18 .6 END STAGE RENAL DISEASE 04/03/2018 KRISTA EPSTEIN MD Ot R07 .2 PRECORDIAL PAIN 04/03/2018 KRISTA EPSTEIN MD Ot R94 .8 ABNORMAL RESULTS OF FUNCTION STUDIES OF 04/03/2018 KRISTA EPSTEIN MD Ot Z79 .4 COMPUTER ANALYST SUPERVISOR (CURRENT) USE OF INSULIN 04/03/2018 KRISTA EPSTEIN MD Ot Z79.899 OTHER COMPUTER ANALYST SUPERVISOR (CURRENT) DRUG THERAPY 04/03/2018 KRISTA EPSTEIN MD Ot Z87.891 PERSONAL HISTORY OF NICOTINE DEPENDENCE 04/03/2018 KRISTA EPSTEIN MD Ot Z99 .2 DEPENDENCE ON RENAL DIALYSIS 04/13/2018 ZECHARIAH ADAMS MD Ot N18 .9 CHRONIC KIDNEY DISEASE, UNSPECIFIED 07/20/2018 ZECHARIAH ADAMS MD Ot N18 .9 CHRONIC KIDNEY DISEASE, UNSPECIFIED 07/23/2018 JAYE SMITH JACKELINE Ot A41.9 SEPSIS, UNSPECIFIED ORGANISM 07/23/2018 JAYE SMITH JACKELINE Ot E11.9 TYPE 2 DIABETES MELLITUS WITHOUT COMPLIC 07/23/2018 JAYE DO, JACKELINE Ot H35.30 UNSPECIFIED MACULAR DEGENERATION 07/23/2018 CARLOS CEE DOI Ot I12.9 HYPERTENSIVE CHRONIC KIDNEY DISEASE W ST 07/23/2018 CARLOS CEE DOI Ot I48.0 PAROXYSMAL ATRIAL FIBRILLATION 07/23/2018 CARLOS CEE DOI Ot J10.89 INFLUENZA DUE TO OTH IDENT INFLUENZA VIR 07/23/2018 CARLOS CEE DOI Ot K21.9 GASTRO-ESOPHAGEAL REFLUX DISEASE WITHOUT 07/23/2018 CARLOS CEE DOI Ot L02.41 3 CUTANEOUS ABSCESS OF RIGHT UPPER LIMB 07/23/2018 CARLOS CEE DOI Ot L40.9 PSORIASIS, UNSPECIFIED 07/23/2018 CARLOS CEE DOI Ot 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, UNSPECIFIED 07/23/2018 CARLOS CEE DOI Ot M19.91 PRIMARY OSTEOARTHRITIS, UNSPECIFIED SITE 07/23/2018 CARLOS CEE DOI Ot M79.10 MYALGIA, UNSPECIFIED SITE 07/23/2018 CARLOS CEE DOI Ot N18.9 CHRONIC KIDNEY DISEASE, UNSPECIFIED 07/23/2018 JACKELINE CEE DO Ot N39.0 URINARY TRACT INFECTION, SITE NOT SPECIF 07/23/2018 CARLOS CEE DOI Ot N40.1 BENIGN PROSTATIC HYPERPLASIA WITH LOWER 07/23/2018 CARLOS CEE DOI Ot R68.83 CHILLS (WITHOUT FEVER) 07/23/2018 CARLOS CEE DOI Ot Z79.84 GROUP HOME (CURRENT) USE OF ORAL HYPOGLYC 07/23/2018 CARLOS CEE DOI Ot Z87.89 1 PERSONAL HISTORY OF NICOTINE DEPENDENCE 07/24/2018 JACKELINE CEE DO Ot A41.9 SEPSIS, UNSPECIFIED ORGANISM 07/24/2018 CARLOS CEE DOI Ot E11.9 TYPE 2 DIABETES MELLITUS WITHOUT COMPLIC 07/24/2018 CARLOS CEE DOI Ot H35.30 UNSPECIFIED MACULAR DEGENERATION 07/24/2018 JACKELINE CEE DO Ot I12.9 HYPERTENSIVE CHRONIC KIDNEY DISEASE W ST 07/24/2018 CARLOS CEE DOI Ot I48.0 PAROXYSMAL ATRIAL FIBRILLATION 07/24/2018 JACKELINE CEE DO Ot J10.89 INFLUENZA DUE TO OTH IDENT INFLUENZA VIR 07/24/2018 JACKELINE CEE DO Ot K21.9 GASTRO-ESOPHAGEAL REFLUX DISEASE WITHOUT 07/24/2018 JACKELINE CEE DO Ot L02.41 3 CUTANEOUS ABSCESS OF RIGHT UPPER LIMB 07/24/2018 JACKELINE CEE DO Ot L40.9 PSORIASIS, UNSPECIFIED 07/24/2018 JACKELINE CEE DO Ot 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, UNSPECIFIED 07/24/2018 JAYE SMITH JACKELINE Ot M19.91 PRIMARY OSTEOARTHRITIS, UNSPECIFIED SITE 07/24/2018 JACKELINE CEE DO Ot M79.10 MYALGIA, UNSPECIFIED SITE 07/24/2018 JACKELINE CEE DO Ot N18.9 CHRONIC KIDNEY DISEASE, UNSPECIFIED 07/24/2018 CARLOS CEE DOI Ot N39.0 URINARY TRACT INFECTION, SITE NOT SPECIF 07/24/2018 JACKELINE CEE DO Ot N40.1 BENIGN PROSTATIC HYPERPLASIA WITH LOWER 07/24/2018 CARLOS CEE DOI Ot R68.83 CHILLS (WITHOUT FEVER) 07/24/2018 JACKELINE CEE DO Ot Z79.84 GROUP HOME (CURRENT) USE OF ORAL HYPOGLYC 07/24/2018 CARLOS CEE DOI Ot Z87.89 1 PERSONAL HISTORY OF NICOTINE DEPENDENCE 07/24/2018 CARLOS CEE DOI Ot A41.4 SEPSIS DUE TO ANAEROBES 07/24/2018 CARLOS CEE DOI Ot A41.9 SEPSIS, UNSPECIFIED ORGANISM 07/24/2018 JACKELINE CEE DO Ot B95.7 OTH STAPHYLOCOCCUS THE CAUSE OF DISEA 07/24/2018 CARLOS CEE DOI Ot B96.89 OTH BACTERIAL AGENTS THE CAUSE OF DIS 07/24/2018 JACKELINE CEE DO Ot D72.82 3 LEUKEMOID REACTION 07/24/2018 JACKELINE CEE DO Ot E11.9 TYPE 2 DIABETES MELLITUS WITHOUT COMPLIC 07/24/2018 JACKELINE CEE DO Ot E87.1 HYPO-OSMOLALITY AND HYPONATREMIA 07/24/2018 JACKELINE CEE DO Ot E87.2 ACIDOSIS 07/24/2018 CARLOS CEE DOI Ot E87.6 HYPOKALEMIA 07/24/2018 CARLOS CEE DOI Ot H35.30 UNSPECIFIED MACULAR DEGENERATION 07/24/2018 CARLOS CEE DOI Ot I12.9 HYPERTENSIVE CHRONIC KIDNEY DISEASE W ST 07/24/2018 CARLOS CEE DOI Ot I48.0 PAROXYSMAL ATRIAL FIBRILLATION 07/24/2018 JACKELINE CEE DO Ot J10.89 INFLUENZA DUE TO OTH IDENT INFLUENZA VIR 07/24/2018 JAYE SMITH JACKELINE Ot K21.9 GASTRO-ESOPHAGEAL REFLUX DISEASE WITHOUT 07/24/2018 JAYE SMITH JACKELINE Ot L02.41 3 CUTANEOUS ABSCESS OF RIGHT UPPER LIMB 07/24/2018 JAYE SMITH JACKELINE Ot L03.11 3 CELLULITIS OF RIGHT UPPER LIMB 07/24/2018 JAYE SMITH JACKELINE Ot L40.9 PSORIASIS, UNSPECIFIED 07/24/2018 JAYE SMITH JACKELINE Ot 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, UNSPECIFIED 07/24/2018 JAYE DO JACKELINE Ot M19.91 PRIMARY OSTEOARTHRITIS, UNSPECIFIED SITE 07/24/2018 JAYE SMITH JACKELINE Ot M79.10 MYALGIA, UNSPECIFIED SITE 07/24/2018 JAYE SMITH JACKELINE Ot N17.9 ACUTE KIDNEY FAILURE, UNSPECIFIED 07/24/2018 JAYE SMITH JACKELINE Ot N18.4 CHRONIC KIDNEY DISEASE, STAGE 4 (SEVERE) 07/24/2018 JAYE SMITH JACKELINE Ot N39.0 URINARY TRACT INFECTION, SITE NOT SPECIF 07/24/2018 JAYE SMITH JACKELINE Ot N39.41 URGE INCONTINENCE 07/24/2018 JAYE MSITH JACKELINE Ot N40.1 BENIGN PROSTATIC HYPERPLASIA WITH LOWER 07/24/2018 JAYE SMITH JACKELINE Ot R07.1 CHEST PAIN ON BREATHING 07/24/2018 JAYE SMITH JACKELINE Ot R30.0 DYSURIA 07/24/2018 JAYE SMITH JACKELINE Ot R68.83 CHILLS (WITHOUT FEVER) 07/24/2018 JAYE SMITH JACKELINE Ot Z79.84 GROUP HOME (CURRENT) USE OF ORAL HYPOGLYC 07/24/2018 JAYE SMITH JACKELINE Ot Z87.89 1 PERSONAL HISTORY OF NICOTINE DEPENDENCE 11/18/2018 ANGIE ARTIS, ZECHARIAH Gonzales Ot N18 .9 CHRONIC KIDNEY DISEASE, UNSPECIFIED 11/23/2018 JAYE SMITH JACKELINE Ot D64.9 ANEMIA, UNSPECIFIED 11/23/2018 JAYE SMITH JAKCELINE Ot E04.1 NONTOXIC SINGLE THYROID NODULE 11/23/2018 JAYE SMITH JACKELINE Ot E11.9 TYPE 2 DIABETES MELLITUS WITHOUT COMPLIC 11/23/2018 JAYE SMITH JACKELINE Ot H35.30 UNSPECIFIED MACULAR DEGENERATION 11/23/2018 CEE DO, JACKELINE Ot I12.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 11/23/2018 CEE DO JACKELINE Ot 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 11/23/2018 CEE DO JACKELINE Ot I48.0 PAROXYSMAL ATRIAL FIBRILLATION 11/23/2018 JAYE SMITH JACKELINE Ot J44.1 CHRONIC OBSTRUCTIVE PULMONARY DISEASE W 11/23/2018 CEE DO JACKELINE Ot K21.9 GASTRO-ESOPHAGEAL REFLUX DISEASE WITHOUT 11/23/2018 CEE DO, JACKELINE Ot K22.10 ULCER OF ESOPHAGUS WITHOUT BLEEDING 11/23/2018 CEE DO JACKELINE Ot K22.2 ESOPHAGEAL OBSTRUCTION 11/23/2018 CEE DO JACKELINE Ot K22.8 OTHER SPECIFIED DISEASES OF ESOPHAGUS 11/23/2018 JAYE SMITH JACKELINE Ot L40.9 PSORIASIS, UNSPECIFIED 11/23/2018 CEE DO JACKELINE Ot 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, UNSPECIFIED 11/23/2018 JAYE SMITH JACKELINE Ot N18.5 CHRONIC KIDNEY DISEASE, STAGE 5 11/23/2018 CEE DO JACKELINE Ot N40.0 BENIGN PROSTATIC HYPERPLASIA WITHOUT LOW 11/23/2018 JAYE SMITH JACKELINE Ot R05 COUGH 11/23/2018 JAYE SMITH JACKELINE Ot R06.02 SHORTNESS OF BREATH 11/23/2018 JAYE SMITH JACKELINE Ot Z79.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 SUPERVISOR (CURRENT) USE OF ANTICOAGULANT 11/23/2018 JAYE SMITH JACKELINE Ot Z79.4 GROUP HOME (CURRENT) USE OF INSULIN 11/23/2018 JAYE SMITH JACKELINE Ot Z87.89 1 PERSONAL HISTORY OF NICOTINE DEPENDENCE 11/23/2018 JAYE SMITH JACKELINE Ot Z95.5 PRESENCE OF CORONARY ANGIOPLASTY IMPLANT 11/25/2018 BIGG ARTIS, MARILEE Mathis Ot E11.9 TYPE 2 DIABETES MELLITUS WITHOUT COMPLIC 11/25/2018 MARILEE PRIDE MD Ot I12.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 11/25/2018 MARILEE PRIDE MD Ot K21.9 GASTRO-ESOPHAGEAL REFLUX DISEASE WITHOUT 11/25/2018 MARILEE PRIDE MD Ot K59.00 CONSTIPATION, UNSPECIFIED 11/25/2018 MARILEE PRIDE MD Ot 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, UNSPECIFIED 11/25/2018 MARILEE PRIDE MD Ot N18.6 END STAGE RENAL DISEASE 11/25/2018 MARILEE PRIDE MD Ot R06.00 DYSPNEA, UNSPECIFIED 11/25/2018 MARILEE PRIDE MD, Ot R06.02 SHORTNESS OF BREATH 11/25/2018 MARILEE PRIDE MD Ot Z79.01 GROUP HOME (CURRENT) USE OF ANTICOAGULANT 11/25/2018 MARILEE PRIDE MD Ot Z79.4 GROUP HOME (CURRENT) USE OF INSULIN 11/25/2018 MARILEE PRIDE MD, Ot Z79.51 COMPUTER ANALYST SUPERVISOR (CURRENT) USE OF INHALED STERO 11/25/2018 MARILEE PRIDE MD, Ot Z79.52 GROUP HOME (CURRENT) USE OF SYSTEMIC STER 11/25/2018 MARILEE PRIDE MD, Ot Z80.0 FAMILY HISTORY OF MALIGNANT NEOPLASM OF 11/25/2018 MARILEE PRIDE MD Ot Z87.448 PERSONAL HISTORY OF OTHER DISEASES OF UR 11/25/2018 MARILEE PRIDE MD Ot Z87.891 PERSONAL HISTORY OF NICOTINE DEPENDENCE 11/25/2018 MARILEE PRIDE MD Ot Z95.5 PRESENCE OF CORONARY ANGIOPLASTY IMPLANT 11/25/2018 MARILEE PRIDE MD Ot Z98.890 OTHER SPECIFIED POSTPROCEDURAL STATES 11/25/2018 MARILEE PRIDE MD Ot Z99.2 DEPENDENCE ON RENAL DIALYSIS 11/30/2018 JACKELINE CEE DO Ot D64.9 ANEMIA, UNSPECIFIED 11/30/2018 JACKELINE CEE DO Ot E04.1 NONTOXIC SINGLE THYROID NODULE 11/30/2018 JACKELINE CEE DO Ot E11.9 TYPE 2 DIABETES MELLITUS WITHOUT COMPLIC 11/30/2018 JACKELINE CEE DO Ot H35.30 UNSPECIFIED MACULAR DEGENERATION 11/30/2018 JACKELINE CEE DO Ot I12.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 11/30/2018 JACKELINE CEE DO Ot 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 11/30/2018 CARLOS CEE DOI Ot I48.0 PAROXYSMAL ATRIAL FIBRILLATION 11/30/2018 JACKELINE CEE DO Ot J44.1 CHRONIC OBSTRUCTIVE PULMONARY DISEASE W 11/30/2018 CEE DO, JACKELINE Ot K21.9 GASTRO-ESOPHAGEAL REFLUX DISEASE WITHOUT 11/30/2018 CEE DO, JACKELINE Ot K22.10 ULCER OF ESOPHAGUS WITHOUT BLEEDING 11/30/2018 JAYE SMITH JACKELINE Ot K22.2 ESOPHAGEAL OBSTRUCTION 11/30/2018 JAYE SMITH JACKELINE Ot K22.8 OTHER SPECIFIED DISEASES OF ESOPHAGUS 11/30/2018 JAYE SMITH JACKELINE Ot L40.9 PSORIASIS, UNSPECIFIED 11/30/2018 JAYE SMITH JACKELINE Ot 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, UNSPECIFIED 11/30/2018 JAYE SMITH JACKELINE Ot N18.5 CHRONIC KIDNEY DISEASE, STAGE 5 11/30/2018 JAYE SMITH JACKELINE Ot N40.0 BENIGN PROSTATIC HYPERPLASIA WITHOUT LOW 11/30/2018 JAYE SMITH JACKELINE Ot R05 COUGH 11/30/2018 JAYE SMITH JACKELINE Ot R06.02 SHORTNESS OF BREATH 11/30/2018 JAYE SMITH JACKELINE Ot Z79.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 SUPERVISOR (CURRENT) USE OF ANTICOAGULANT 11/30/2018 JAYE SMITH JACKELINE Ot Z79.4 GROUP HOME (CURRENT) USE OF INSULIN 11/30/2018 JAYE SMITH JACKELINE Ot Z87.89 1 PERSONAL HISTORY OF NICOTINE DEPENDENCE 11/30/2018 JAYE SMITH JACKELINE Ot Z95.5 PRESENCE OF CORONARY ANGIOPLASTY IMPLANT 11/30/2018 JAYE SMITH JACKELINE Ot D64.9 ANEMIA, UNSPECIFIED 11/30/2018 JAYE SMITH JACKELINE Ot E04.1 NONTOXIC SINGLE THYROID NODULE 11/30/2018 JAYE SMITH JACKELINE Ot E11.9 TYPE 2 DIABETES MELLITUS WITHOUT COMPLIC 11/30/2018 JAYE SMITH JACKELINE Ot H35.30 UNSPECIFIED MACULAR DEGENERATION 11/30/2018 JAYE SMITH JACKELINE Ot I12.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 11/30/2018 JAYE SMITH JACKELINE Ot 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 11/30/2018 JAYE SMITH JACKELINE Ot I48.0 PAROXYSMAL ATRIAL FIBRILLATION 11/30/2018 JAYE SMITH JACKELINE Ot J44.1 CHRONIC OBSTRUCTIVE PULMONARY DISEASE W 11/30/2018 JAYE SMITH JACKELINE Ot K21.9 GASTRO-ESOPHAGEAL REFLUX DISEASE WITHOUT 11/30/2018 JAYE SMITH JACKELINE Ot K22.10 ULCER OF ESOPHAGUS WITHOUT BLEEDING 11/30/2018 CEECARLOS GORE DOI Ot K22.2 ESOPHAGEAL OBSTRUCTION 11/30/2018 CEEJACKELINE GORE DO Ot K22.8 OTHER SPECIFIED DISEASES OF ESOPHAGUS 11/30/2018 JACKELINE CEE DO Ot L40.9 PSORIASIS, UNSPECIFIED 11/30/2018 CEESOFÍA SMITH JACKELINE Ot 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, UNSPECIFIED 11/30/2018 CEECARLOS GORE DOI Ot N18.5 CHRONIC KIDNEY DISEASE, STAGE 5 11/30/2018 CEEJACKELINE GORE DO Ot N40.0 BENIGN PROSTATIC HYPERPLASIA WITHOUT LOW 11/30/2018 CEESOFÍA SMITH JACKELINE Ot R05 COUGH 11/30/2018 CEECARLOS GORE DOI Ot R06.02 SHORTNESS OF BREATH 11/30/2018 JACKELINE CEE DO Ot Z79.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 SUPERVISOR (CURRENT) USE OF ANTICOAGULANT 11/30/2018 JACKELINE CEE DO Ot Z79.4 COMPUTER ANALYST SUPERVISOR (CURRENT) USE OF INSULIN 11/30/2018 JACKELINE CEE DO Ot Z87.89 1 PERSONAL HISTORY OF NICOTINE DEPENDENCE 11/30/2018 JACKELINE CEE DO Ot Z95.5 PRESENCE OF CORONARY ANGIOPLASTY IMPLANT 12/16/2018 DIPIKA PACK MD, Ot E11. 22 TYPE 2 DIABETES MELLITUS W DIABETIC NEUROLOGY STROKE PHYSICIAN 12/16/2018 DIPIKA PACK MD, Ot E86. 0 DEHYDRATION 12/16/2018 DIPIKA PACK MD, Ot I12. 9 HYPERTENSIVE CHRONIC KIDNEY DISEASE W ST 12/16/2018 DIPIKA PACK MD, Ot I25. 10 ATHSCL HEART DISEASE OF [place] CORONARY 12/16/2018 DIPIKA PACK MD Ot I48. 0 PAROXYSMAL ATRIAL FIBRILLATION 12/16/2018 DIPIKA PACK MD, Ot J11. 1 FLU DUE TO UNIDENTIFIED INFLUENZA VIRUS 12/16/2018 DIPIKA PACK MD, Ot J44. 9 CHRONIC OBSTRUCTIVE PULMONARY DISEASE, U 12/16/2018 DIPIKA PACK MD, Ot M06. 9 RHEUMATOID ARTHRITIS, UNSPECIFIED 12/16/2018 DIPIKA PACK MD, Ot N17. 9 ACUTE KIDNEY FAILURE, UNSPECIFIED 12/16/2018 DIPIKA PACK MD, Ot N18. 4 CHRONIC KIDNEY DISEASE, STAGE 4 (SEVERE) 12/16/2018 DIPIKA PACK MD, Ot N40. 0 BENIGN PROSTATIC HYPERPLASIA WITHOUT LOW 12/16/2018 DIPIKA PACK MD, Ot R09. 02 HYPOXEMIA 12/16/2018 DIPIKA PACK MD, Ot R60. 0 LOCALIZED EDEMA 12/16/2018 DIPIKA PACK MD, Ot Z79. 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 SUPERVISOR (CURRENT) USE OF ANTICOAGULANT 12/16/2018 DIPIKA PACK MD, Ot Z79. 4 COMPUTER ANALYST SUPERVISOR (CURRENT) USE OF INSULIN 12/16/2018 DIPIKA PACK MD, Ot Z87.891 PERSONAL HISTORY OF NICOTINE DEPENDENCE 12/16/2018 DIPIKA PACK MD, Ot Z95. 5 PRESENCE OF CORONARY ANGIOPLASTY IMPLANT 12/18/2018 DIPIKA PACK MD, Ot E11. 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 0 DEHYDRATION 12/18/2018 DIPIKA PACK MD, Ot I12. 9 HYPERTENSIVE CHRONIC KIDNEY DISEASE W ST 12/18/2018 DIPIKA PACK MD, Ot I25. 10 ATHSCL HEART DISEASE OF [place] CORONARY 12/18/2018 DIPIKA PACK MD, Ot I48. 0 PAROXYSMAL ATRIAL FIBRILLATION 12/18/2018 DIPIKA PACK MD, Ot J11. 1 FLU DUE TO UNIDENTIFIED INFLUENZA VIRUS 12/18/2018 DIPIKA PACK MD, Ot J44. 9 CHRONIC OBSTRUCTIVE PULMONARY DISEASE, U 12/18/2018 DIPIKA PACK MD, Ot M06. 9 RHEUMATOID ARTHRITIS, UNSPECIFIED 12/18/2018 DIPIKA PACK MD, Ot N17. 9 ACUTE KIDNEY FAILURE, UNSPECIFIED 12/18/2018 DIPIKA PACK MD, Ot N18. 4 CHRONIC KIDNEY DISEASE, STAGE 4 (SEVERE) 12/18/2018 DIPIKA PACK MD, Ot N40. 0 BENIGN PROSTATIC HYPERPLASIA WITHOUT LOW 12/18/2018 DIPIKA PACK MD, Ot R09. 02 HYPOXEMIA 12/18/2018 DIPIKA PACK MD, Ot R60. 0 LOCALIZED EDEMA 12/18/2018 DIPIKA PACK MD, Ot Z79. 01 GROUP HOME (CURRENT) USE OF ANTICOAGULANT 12/18/2018 DIPIKA PACK MD, Ot Z79. 4 GROUP HOME (CURRENT) USE OF INSULIN 12/18/2018 DIPIKA PACK MD, Ot Z87.891 PERSONAL HISTORY OF NICOTINE DEPENDENCE 12/18/2018 DIPIKA PACK MD, Ot Z95. 5 PRESENCE OF CORONARY ANGIOPLASTY IMPLANT 12/18/2018 DIPIKA PACK MD, Ot E11. 22 TYPE 2 DIABETES MELLITUS W DIABETIC NEUROLOGY STROKE PHYSICIAN 12/18/2018 DIPIKA PACK MD Ot E86. 0 DEHYDRATION 12/18/2018 DIPIKA PACK MD, Ot I12. 9 HYPERTENSIVE CHRONIC KIDNEY DISEASE W ST 12/18/2018 DIPIKA PACK MD, Ot I25. 10 ATHSCL HEART DISEASE OF [place] CORONARY 12/18/2018 DIPIKA PACK MD, Ot I48. 0 PAROXYSMAL ATRIAL FIBRILLATION 12/18/2018 DIPIKA PACK MD, Ot J11. 1 FLU DUE TO UNIDENTIFIED INFLUENZA VIRUS 12/18/2018 DIPIKA PACK MD, Ot J44. 9 CHRONIC OBSTRUCTIVE PULMONARY DISEASE, U 12/18/2018 DIPIKA PACK MD, Ot M06. 9 RHEUMATOID ARTHRITIS, UNSPECIFIED 12/18/2018 DIPIKA PACK MD, Ot N17. 9 ACUTE KIDNEY FAILURE, UNSPECIFIED 12/18/2018 DIPIKA PACK MD, Ot N18. 4 CHRONIC KIDNEY DISEASE, STAGE 4 (SEVERE) 12/18/2018 DIPIKA PACK MD, Ot N40. 0 BENIGN PROSTATIC HYPERPLASIA WITHOUT LOW 12/18/2018 DIPIKA PACK MD, Ot R09. 02 HYPOXEMIA 12/18/2018 DIPIKA PACK MD, Ot R60. 0 LOCALIZED EDEMA 12/18/2018 DIPIKA PACK MD, Ot Z79. 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 4 COMPUTER ANALYST SUPERVISOR (CURRENT) USE OF INSULIN 12/18/2018 DIPIKA PACK MD, Ot Z87.891 PERSONAL HISTORY OF NICOTINE DEPENDENCE 12/18/2018 DIPIKA PACK MD, Ot Z95. 5 PRESENCE OF CORONARY ANGIOPLASTY IMPLANT 12/18/2018 DIPIKA PACK MD, Ot E11. 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 0 DEHYDRATION 12/18/2018 DIPIKA PACK MD, Ot I12. 9 HYPERTENSIVE CHRONIC KIDNEY DISEASE W ST 12/18/2018 DIPIKA PACK MD, Ot I25. 10 ATHSCL HEART DISEASE OF [place] CORONARY 12/18/2018 DIPIKA PACK MD, Ot I48. 0 PAROXYSMAL ATRIAL FIBRILLATION 12/18/2018 DIPIKA PACK MD, Ot J11. 1 FLU DUE TO UNIDENTIFIED INFLUENZA VIRUS 12/18/2018 DIPIKA PACK MD, Ot J44. 9 CHRONIC OBSTRUCTIVE PULMONARY DISEASE, U 12/18/2018 DIPIKA PACK MD, Ot M06. 9 RHEUMATOID ARTHRITIS, UNSPECIFIED 12/18/2018 DIPIKA PACK MD, Ot N17. 9 ACUTE KIDNEY FAILURE, UNSPECIFIED 12/18/2018 DIPIKA APCK MD, Ot N18. 4 CHRONIC KIDNEY DISEASE, STAGE 4 (SEVERE) 12/18/2018 DIPIKA PACK MD, Ot N40. 0 BENIGN PROSTATIC HYPERPLASIA WITHOUT LOW 12/18/2018 DIPIKA PACK MD Ot R09. 02 HYPOXEMIA 12/18/2018 DIPIKA PACK MD, Ot R60. 0 LOCALIZED EDEMA 12/18/2018 DIPIKA PACK MD, Ot Z79. 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 4 GROUP HOME (CURRENT) USE OF INSULIN 12/18/2018 DIPIKA PACK MD, Ot Z87.891 PERSONAL HISTORY OF NICOTINE DEPENDENCE 12/18/2018 DIPIKA PACK MD, Ot Z95. 5 PRESENCE OF CORONARY ANGIOPLASTY IMPLANT 12/20/2018 AQUILES LAWTON MD Ot E11. 22 TYPE 2 DIABETES MELLITUS W DIABETIC NEUROLOGY STROKE PHYSICIAN 12/20/2018 AQUILES LAWTON MD Ot I12. 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 10 ATHSCL HEART DISEASE OF [place] CORONARY 12/20/2018 AQUILES LAWTON MD Ot K21. 9 GASTRO-ESOPHAGEAL REFLUX DISEASE WITHOUT 12/20/2018 AQUILES LAWTON MD Ot K62. 5 HEMORRHAGE OF ANUS AND RECTUM 12/20/2018 AQUILES LAWTON MD Ot M06. 9 RHEUMATOID ARTHRITIS, UNSPECIFIED 12/20/2018 AQUILES LAWTON MD Ot N18. 6 END STAGE RENAL DISEASE 12/20/2018 AQUILES LAWTON MD, Ot Z79. 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 4 GROUP HOME (CURRENT) USE OF INSULIN 12/20/2018 AQUILES LAWTON MD Ot Z79. 52 GROUP HOME (CURRENT) USE OF SYSTEMIC STER 12/20/2018 AQUILES LAWTON MD Ot Z79. 82 GROUP HOME (CURRENT) USE OF ASPIRIN 12/20/2018 AQUILES LAWTON MD, Ot Z80. 0 FAMILY HISTORY OF MALIGNANT NEOPLASM OF 12/20/2018 AQUILES LAWTON MD Ot Z87. 19 PERSONAL HISTORY OF OTHER DISEASES OF TH 12/20/2018 AQUILES LAWTON MD, Ot Z87.891 PERSONAL HISTORY OF NICOTINE DEPENDENCE 12/20/2018 AQUILES LAWTON MD Ot Z95. 5 PRESENCE OF CORONARY ANGIOPLASTY IMPLANT 12/20/2018 AQUILES LAWTON MD Ot Z99. 2 DEPENDENCE ON RENAL DIALYSIS 12/23/2018 AQUILES LAWTON MD Ot E11. 22 TYPE 2 DIABETES MELLITUS W DIABETIC NEUROLOGY STROKE PHYSICIAN 12/23/2018 AQUILES LAWTON MD Ot I12. 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 12/23/2018 AQUILES LAWTON MD Ot I25. 10 ATHSCL HEART DISEASE OF [place] CORONARY 12/23/2018 AQUILES LAWTON MD Ot K21. 9 GASTRO-ESOPHAGEAL REFLUX DISEASE WITHOUT 12/23/2018 AQUILES LAWTON MD Ot K62. 5 HEMORRHAGE OF ANUS AND RECTUM 12/23/2018 AQUILES LAWTON MD Ot M06. 9 RHEUMATOID ARTHRITIS, UNSPECIFIED 12/23/2018 AQUILES LAWTON MD Ot N18. 6 END STAGE RENAL DISEASE 12/23/2018 AQUILES LAWTON MD, Ot Z79. 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 4 COMPUTER ANALYST SUPERVISOR (CURRENT) USE OF INSULIN 12/23/2018 AQUILES LAWTON MD Ot Z79. 52 COMPUTER ANALYST SUPERVISOR (CURRENT) USE OF SYSTEMIC STER 12/23/2018 AQUILES LAWTON MD, Ot Z79. 82 GROUP HOME (CURRENT) USE OF ASPIRIN 12/23/2018 AQUILES LAWTON MD, Ot Z80. 0 FAMILY HISTORY OF MALIGNANT NEOPLASM OF 12/23/2018 AQUILES LAWTON MD, Ot Z87. 19 PERSONAL HISTORY OF OTHER DISEASES OF TH 12/23/2018 AQUILES LAWTON MD, Ot Z87.891 PERSONAL HISTORY OF NICOTINE DEPENDENCE 12/23/2018 AQUILES LAWTON MD, Ot Z95. 5 PRESENCE OF CORONARY ANGIOPLASTY IMPLANT 12/23/2018 AQUILES LAWTON MD, Ot Z99. 2 DEPENDENCE ON RENAL DIALYSIS 12/29/2018 ANGELIKA REED MD Ot A41.9 SEPSIS, UNSPECIFIED ORGANISM 12/29/2018 ANGELIKA REED MD, Ot D62 ACUTE POSTHEMORRHAGIC ANEMIA 12/29/2018 ANGELIKA REED MD, Ot E11.2 1 TYPE 2 DIABETES MELLITUS WITH DIABETIC N 12/29/2018 ANGELIKA REED MD, Ot E87.6 HYPOKALEMIA 12/29/2018 ANGELIKA REED MD, Ot H35.3 0 UNSPECIFIED MACULAR DEGENERATION 12/29/2018 ANGELIKA REED MD, Ot I12.9 HYPERTENSIVE CHRONIC KIDNEY DISEASE W ST 12/29/2018 ANGELIKA REED MD, Ot I25.1 0 ATHSCL HEART DISEASE OF [place] CORONARY 12/29/2018 ANGELIKA REED MD, Ot I48.0 PAROXYSMAL ATRIAL FIBRILLATION 12/29/2018 ANGELIKA REED MD, Ot K57.3 3 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 12/29/2018 ANGELIKA REED MD, Ot K64.9 UNSPECIFIED HEMORRHOIDS 12/29/2018 ANGELIKA REED MD, Ot 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, UNSPECIFIED 12/29/2018 ANGELIKA REED MD, Ot M19.9 1 PRIMARY OSTEOARTHRITIS, UNSPECIFIED SITE 12/29/2018 ANGELIKA REED MD, Ot N17.9 ACUTE KIDNEY FAILURE, UNSPECIFIED 12/29/2018 ANGELIKA REED MD, Ot N18.3 CHRONIC KIDNEY DISEASE, STAGE 3 (MODERAT 12/29/2018 ANGELIKA REED MD, Ot N40.0 BENIGN PROSTATIC HYPERPLASIA WITHOUT LOW 12/29/2018 ANGELIKA REED MD, Ot Z86.1 9 PERSONAL HISTORY OF OTHER INFECTIOUS AND 12/29/2018 ANGELIKA REED MD, Ot 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 12/29/2018 ANGELIKA REED MD Ot Z95.5 PRESENCE OF CORONARY ANGIOPLASTY IMPLANT 01/05/2019 MARILEE PRIDE MD, Ot A41.9 SEPSIS, UNSPECIFIED ORGANISM 01/05/2019 MARILEE PRIDE MD, Ot 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 01/05/2019 MARILEE PRIDE MD, Ot E11.43 TYPE 2 DIABETES W DIABETIC AUTONOMIC (PO 01/05/2019 MARILEE PRIDE MD, Ot I12.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 01/05/2019 MARILEE PRIDE MD, Ot I25.10 ATHSCL HEART DISEASE OF [place] CORONARY 01/05/2019 MARILEE PRIDE MD, Ot K31.84 GASTROPARESIS 01/05/2019 MARILEE PRIDE MD, Ot K57.32 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 01/05/2019 MARILEE PRIDE MD, Ot N18.6 END STAGE RENAL DISEASE 01/05/2019 MARILEE PRIDE MD, Ot R53.1 WEAKNESS 01/05/2019 MARILEE PRIDE MD, Ot R65.20 SEVERE SEPSIS WITHOUT SEPTIC SHOCK 01/05/2019 MARILEE PRIDE MD, Ot R79.89 OTHER SPECIFIED ABNORMAL FINDINGS OF BLO 01/05/2019 MARILEE PRIDE MD Ot Z79.02 GROUP HOME (CURRENT) USE OF ANTITHROMBOTI 01/05/2019 MARILEE PRIDE MD Ot Z79.4 GROUP HOME (CURRENT) USE OF INSULIN 01/05/2019 MARILEE PRIDE MD, Ot Z79.52 GROUP HOME (CURRENT) USE OF SYSTEMIC STER 01/05/2019 MARILEE PRIDE MD Ot Z80.0 FAMILY HISTORY OF MALIGNANT NEOPLASM OF 01/05/2019 MARILEE PRIDE MD Ot Z87.19 PERSONAL HISTORY OF OTHER DISEASES OF TH 01/05/2019 MARILEE PRIDE MD, Ot Z87.448 PERSONAL HISTORY OF OTHER DISEASES OF UR 01/05/2019 MARILEE PRIDE MD, Ot Z87.891 PERSONAL HISTORY OF NICOTINE DEPENDENCE 01/05/2019 MARILEE PRIDE MD Ot Z95.5 PRESENCE OF CORONARY ANGIOPLASTY IMPLANT 01/05/2019 MARILEE PRIDE MD Ot Z99.2 DEPENDENCE ON RENAL DIALYSIS 01/07/2019 MARILEE PRIDE MD, Ot A41.9 SEPSIS, UNSPECIFIED ORGANISM 01/07/2019 MARILEE PRIDE MD, Ot 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 01/07/2019 MARILEE PRIDE MD, Ot E11.43 TYPE 2 DIABETES W DIABETIC AUTONOMIC (PO 01/07/2019 MARILEE PRIDE MD, Ot I12.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 01/07/2019 MARILEE PRIDE MD, Ot I25.10 ATHSCL HEART DISEASE OF [place] CORONARY 01/07/2019 MARILEE PRIDE MD, Ot K31.84 GASTROPARESIS 01/07/2019 MARILEE PRIDE MD, Ot K57.32 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 01/07/2019 MARILEE PRIDE MD, Ot N18.6 END STAGE RENAL DISEASE 01/07/2019 MARILEE PRIDE MD Ot R53.1 WEAKNESS 01/07/2019 MARILEE PRIDE MD, Ot R65.20 SEVERE SEPSIS WITHOUT SEPTIC SHOCK 01/07/2019 MARILEE PRIDE MD, Ot R79.89 OTHER SPECIFIED ABNORMAL FINDINGS OF BLO 01/07/2019 MARILEE PRIDE MD, Ot Z79.02 COMPUTER ANALYST SUPERVISOR (CURRENT) USE OF ANTITHROMBOTI 01/07/2019 MARILEE PRIDE MD, Ot Z79.4 GROUP HOME (CURRENT) USE OF INSULIN 01/07/2019 MARILEE PRIDE MD, Ot Z79.52 COMPUTER ANALYST SUPERVISOR (CURRENT) USE OF SYSTEMIC STER 01/07/2019 MARILEE PRIDE MD, Ot Z80.0 FAMILY HISTORY OF MALIGNANT NEOPLASM OF 01/07/2019 MARILEE PRIDE MD, Ot Z87.19 PERSONAL HISTORY OF OTHER DISEASES OF TH 01/07/2019 MARILEE PRIDE MD, Ot Z87.448 PERSONAL HISTORY OF OTHER DISEASES OF UR 01/07/2019 MARILEE PRIDE MD, Ot Z87.891 PERSONAL HISTORY OF NICOTINE DEPENDENCE 01/07/2019 MARILEE PRIDE MD Ot Z95.5 PRESENCE OF CORONARY ANGIOPLASTY IMPLANT 01/07/2019 MARILEE PRIDE MD Ot Z99.2 DEPENDENCE ON RENAL DIALYSIS 02/21/2019 BERNOT, KEANU Ot E11.9 TYPE 2 DIABETES MELLITUS WITHOUT COMPLIC 02/21/2019 BERNOT, KEANU Ot I10 ESSENTIAL (PRIMARY) HYPERTENSION 02/21/2019 BERNOT KEANU Ot I25.10 ATHSCL HEART DISEASE OF [place] CORONARY 02/21/2019 JOSIE ESPINOZAIS Ot K21.9 GASTRO-ESOPHAGEAL REFLUX DISEASE WITHOUT 02/21/2019 JOSIE ESPINOZAIS Ot 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, UNSPECIFIED 02/21/2019 ALEXIS KEANU Ot R07.81 PLEURODYNIA 02/21/2019 BERNOT KEANU Ot Z79.02 GROUP HOME (CURRENT) USE OF ANTITHROMBOTI 02/21/2019 BERNOT KEANU Ot Z79.4 GROUP HOME (CURRENT) USE OF INSULIN 02/21/2019 ALEXIS KEANU Ot Z79.52 COMPUTER ANALYST SUPERVISOR (CURRENT) USE OF SYSTEMIC STER 02/21/2019 JOSIE ESPINOZAIS Ot Z80.0 FAMILY HISTORY OF MALIGNANT NEOPLASM OF 02/21/2019 JOSIE ESPINOZAIS Ot Z87.19 PERSONAL HISTORY OF OTHER DISEASES OF TH 02/21/2019 JOSIE ESPINOZAIS Ot Z87.448 PERSONAL HISTORY OF OTHER DISEASES OF UR 02/21/2019 ALEXIS KEANU Ot Z87.891 PERSONAL HISTORY OF NICOTINE DEPENDENCE 02/21/2019 JOSIE ESPINOZAIS Ot Z93.3 COLOSTOMY STATUS 02/21/2019 JOSIE ESPINOZAIS Ot Z95.5 PRESENCE OF CORONARY ANGIOPLASTY IMPLANT 02/25/2019 JOSIE ESPINOZAIS Ot E11.9 TYPE 2 DIABETES MELLITUS WITHOUT COMPLIC 02/25/2019 JOSIE ESPINOZAIS Ot I10 ESSENTIAL (PRIMARY) HYPERTENSION 02/25/2019 JOSIE ESPINOZAIS Ot I25.10 ATHSCL HEART DISEASE OF [place] CORONARY 02/25/2019 JOSIE ESPINOZAIS Ot K21.9 GASTRO-ESOPHAGEAL REFLUX DISEASE WITHOUT 02/25/2019 JOSIE ESPINOZAIS Ot 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, UNSPECIFIED 02/25/2019 ALEXIS KEANU Ot R07.81 PLEURODYNIA 02/25/2019 BERNOT KEANU Ot Z79.02 COMPUTER ANALYST SUPERVISOR (CURRENT) USE OF ANTITHROMBOTI 02/25/2019 TIARAOT KEANU Ot Z79.4 GROUP HOME (CURRENT) USE OF INSULIN 02/25/2019 ALEXIS KEANU Ot Z79.52 GROUP HOME (CURRENT) USE OF SYSTEMIC STER 02/25/2019 KEANU ESPINOZA Ot Z80.0 FAMILY HISTORY OF MALIGNANT NEOPLASM OF 02/25/2019 KEANU ESPINOZA Ot Z87.19 PERSONAL HISTORY OF OTHER DISEASES OF TH 02/25/2019 KEANU ESPINOZA Ot Z87.448 PERSONAL HISTORY OF OTHER DISEASES OF UR 02/25/2019 JOSIE ESPINOZAIS Ot Z87.891 PERSONAL HISTORY OF NICOTINE DEPENDENCE 02/25/2019 KEANU ESPINOZA Ot Z93.3 COLOSTOMY STATUS 02/25/2019 JOSIE ESPINOZAIS Ot Z95.5 PRESENCE OF CORONARY ANGIOPLASTY IMPLANT 04/28/2019 CHRISTIAN JOHN MD Ot E11 .9 TYPE 2 DIABETES MELLITUS WITHOUT COMPLIC 04/28/2019 CHRISTIAN JOHN MD, Ot H35.30 UNSPECIFIED MACULAR DEGENERATION 04/28/2019 CHRISTIAN JOHN MD Ot I12 .9 HYPERTENSIVE CHRONIC KIDNEY DISEASE W ST 04/28/2019 CHRISTIAN JOHN MD Ot I25.10 ATHSCL HEART DISEASE OF [place] CORONARY 04/28/2019 CHRISTIAN JOHN MD Ot I48.91 UNSPECIFIED ATRIAL FIBRILLATION 04/28/2019 CHRISTIAN JOHN MD Ot K21 .9 GASTRO-ESOPHAGEAL REFLUX DISEASE WITHOUT 04/28/2019 CHRISTIAN JOHN MD Ot L40 .9 PSORIASIS, UNSPECIFIED 04/28/2019 CHRISTIAN JOHN MD Ot M06 .9 RHEUMATOID ARTHRITIS, UNSPECIFIED 04/28/2019 CHRISTIAN JOHN MD Ot M19.91 PRIMARY OSTEOARTHRITIS, UNSPECIFIED SITE 04/28/2019 CHRISTIAN JOHN MD, Ot N17 .9 ACUTE KIDNEY FAILURE, UNSPECIFIED 04/28/2019 CHRISTIAN JOHN MD Ot N18 .3 CHRONIC KIDNEY DISEASE, STAGE 3 (MODERAT 04/28/2019 CHRISTIAN JOHN MD Ot N40 .0 BENIGN PROSTATIC HYPERPLASIA WITHOUT LOW 04/28/2019 CHRISTIAN JOHN MD Ot R06.00 DYSPNEA, UNSPECIFIED 04/28/2019 CHRISTIAN JOHN MD Ot R53 .1 WEAKNESS 04/28/2019 CHRISTIAN JOHN MD, Ot Z66 DO NOT RESUSCITATE 04/28/2019 CHRISTIAN JOHN MD Ot Z79.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 SUPERVISOR (CURRENT) USE OF ANTICOAGULANT 04/28/2019 CHRISTIAN JOHN MD, Ot Z87.891 PERSONAL HISTORY OF NICOTINE DEPENDENCE 04/28/2019 CHRISTIAN JOHN MD Ot Z90.49 ACQUIRED ABSENCE OF OTHER SPECIFIED PART 04/28/2019 CHRISTIAN JOHN MD Ot Z93 .3 COLOSTOMY STATUS 04/28/2019 CHRISTIAN JOHN MD Ot 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 04/28/2019 CHRISTIAN JOHN MD Ot E11 .9 TYPE 2 DIABETES MELLITUS WITHOUT COMPLIC 04/28/2019 CHRISTIAN JOHN MD Ot H35.30 UNSPECIFIED MACULAR DEGENERATION 04/28/2019 CHRISTIAN JOHN MD Ot I12 .9 HYPERTENSIVE CHRONIC KIDNEY DISEASE W ST 04/28/2019 CHRISTIAN JOHN MD Ot I25.10 ATHSCL HEART DISEASE OF [place] CORONARY 04/28/2019 CHRISTIAN JOHN MD Ot I48 .1 PERSISTENT ATRIAL FIBRILLATION 04/28/2019 CHRISTIAN JOHN MD Ot I48.91 UNSPECIFIED ATRIAL FIBRILLATION 04/28/2019 CHRISTIAN JOHN MD Ot K21 .9 GASTRO-ESOPHAGEAL REFLUX DISEASE WITHOUT 04/28/2019 CHRISTIAN JOHN MD Ot L40 .9 PSORIASIS, UNSPECIFIED 04/28/2019 CHRISTIAN JOHN MD Ot L89.629 PRESSURE ULCER OF LEFT HEEL, UNSPECIFIED 04/28/2019 CHRISTINA JOHN MD Ot M06 .9 RHEUMATOID ARTHRITIS, UNSPECIFIED 04/28/2019 CHRISTIAN JOHN MD Ot M19.91 PRIMARY OSTEOARTHRITIS, UNSPECIFIED SITE 04/28/2019 CHRISTIAN JOHN MD Ot N17 .9 ACUTE KIDNEY FAILURE, UNSPECIFIED 04/28/2019 CHRISTIAN JOHN MD Ot N18 .3 CHRONIC KIDNEY DISEASE, STAGE 3 (MODERAT 04/28/2019 CHRISTIAN JOHN MD Ot N40 .0 BENIGN PROSTATIC HYPERPLASIA WITHOUT LOW 04/28/2019 CHRISTIAN JOHN MD Ot R06.00 DYSPNEA, UNSPECIFIED 04/28/2019 CHRISTIAN JOHN MD Ot R53 .1 WEAKNESS 04/28/2019 CHRISTIAN JOHN MD Ot Z66 DO NOT RESUSCITATE 04/28/2019 CHRISTIAN JOHN MD Ot Z79.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 SUPERVISOR (CURRENT) USE OF ANTICOAGULANT 04/28/2019 CHRISTIAN JOHN MD Ot Z87.891 PERSONAL HISTORY OF NICOTINE DEPENDENCE 04/28/2019 CHRISTIAN JOHN MD Ot Z90.49 ACQUIRED ABSENCE OF OTHER SPECIFIED PART 04/28/2019 CHRISTIAN JOHN MD, Ot Z93 .3 COLOSTOMY STATUS 04/28/2019 CHRISTIAN JOHN MD Ot 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 04/30/2019 CHRISTIAN JOHN MD Ot E11 .9 TYPE 2 DIABETES MELLITUS WITHOUT COMPLIC 04/30/2019 CHRISTIAN JOHN MD Ot H35.30 UNSPECIFIED MACULAR DEGENERATION 04/30/2019 CHRISTIAN JOHN MD Ot I12 .9 HYPERTENSIVE CHRONIC KIDNEY DISEASE W ST 04/30/2019 CHRISTIAN JOHN MD Ot I25.10 ATHSCL HEART DISEASE OF [place] CORONARY 04/30/2019 CHRISTIAN JOHN MD Ot I48.91 UNSPECIFIED ATRIAL FIBRILLATION 04/30/2019 CHRISTIAN JOHN MD Ot K21 .9 GASTRO-ESOPHAGEAL REFLUX DISEASE WITHOUT 04/30/2019 CHRISTIAN JOHN MD Ot L40 .9 PSORIASIS, UNSPECIFIED 04/30/2019 CHRISTIAN JOHN MD Ot M06 .9 RHEUMATOID ARTHRITIS, UNSPECIFIED 04/30/2019 CHRISTIAN JOHN MD Ot M19.91 PRIMARY OSTEOARTHRITIS, UNSPECIFIED SITE 04/30/2019 CHRISTIAN JOHN MD Ot N17 .9 ACUTE KIDNEY FAILURE, UNSPECIFIED 04/30/2019 CHRISTIAN JOHN MD Ot N18 .3 CHRONIC KIDNEY DISEASE, STAGE 3 (MODERAT 04/30/2019 CHRISTIAN JOHN MD Ot N40 .0 BENIGN PROSTATIC HYPERPLASIA WITHOUT LOW 04/30/2019 CHRISTIAN JOHN MD Ot R06.00 DYSPNEA, UNSPECIFIED 04/30/2019 CHRISTIAN JOHN MD Ot R53 .1 WEAKNESS 04/30/2019 CHRISTIAN JOHN MD Ot Z66 DO NOT RESUSCITATE 04/30/2019 CHRISTIAN JOHN MD Ot Z79.01 GROUP HOME (CURRENT) USE OF ANTICOAGULANT 04/30/2019 CHRISTIAN JOHN MD Ot Z87.891 PERSONAL HISTORY OF NICOTINE DEPENDENCE 04/30/2019 CHRISTIAN JOHN MD Ot Z90.49 ACQUIRED ABSENCE OF OTHER SPECIFIED PART 04/30/2019 CHRISTIAN JOHN MD Ot Z93 .3 COLOSTOMY STATUS 04/30/2019 CHRISTIAN JOHN MD Ot 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 04/30/2019 CHRISTIAN JOHN MD Ot E11 .9 TYPE 2 DIABETES MELLITUS WITHOUT COMPLIC 04/30/2019 CHRISTIAN JOHN MD Ot H35.30 UNSPECIFIED MACULAR DEGENERATION 04/30/2019 CHRISTIAN JOHN MD Ot I12 .9 HYPERTENSIVE CHRONIC KIDNEY DISEASE W ST 04/30/2019 CHRISTIAN JOHN MD Ot I25.10 ATHSCL HEART DISEASE OF [place] CORONARY 04/30/2019 CHRISTIAN JOHN MD Ot I48.91 UNSPECIFIED ATRIAL FIBRILLATION 04/30/2019 CHRISTIAN JONH MD Ot K21 .9 GASTRO-ESOPHAGEAL REFLUX DISEASE WITHOUT 04/30/2019 CHRISTIAN JOHN MD Ot L40 .9 PSORIASIS, UNSPECIFIED 04/30/2019 CHRISTIAN JOHN MD Ot M06 .9 RHEUMATOID ARTHRITIS, UNSPECIFIED 04/30/2019 CHRISTIAN JOHN MD Ot M19.91 PRIMARY OSTEOARTHRITIS, UNSPECIFIED SITE 04/30/2019 CHRISTIAN JOHN MD Ot N17 .9 ACUTE KIDNEY FAILURE, UNSPECIFIED 04/30/2019 CHRISTIAN JOHN MD Ot N18 .3 CHRONIC KIDNEY DISEASE, STAGE 3 (MODERAT 04/30/2019 CHRISTIAN JOHN MD Ot N40 .0 BENIGN PROSTATIC HYPERPLASIA WITHOUT LOW 04/30/2019 CHRISTIAN JOHN MD Ot R06.00 DYSPNEA, UNSPECIFIED 04/30/2019 CHRISTIAN JOHN MD Ot R53 .1 WEAKNESS 04/30/2019 CHRISTIAN JOHN MD Ot Z66 DO NOT RESUSCITATE 04/30/2019 CHRISTIAN JOHN MD Ot Z79.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 SUPERVISOR (CURRENT) USE OF ANTICOAGULANT 04/30/2019 CHRISTIAN JOHN MD Ot Z87.891 PERSONAL HISTORY OF NICOTINE DEPENDENCE 04/30/2019 CHRISTIAN JOHN MD Ot Z90.49 ACQUIRED ABSENCE OF OTHER SPECIFIED PART 04/30/2019 CHRISTIAN JOHN MD Ot Z93 .3 COLOSTOMY STATUS 04/30/2019 CHRISTIAN JOHN MD Ot 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 04/30/2019 CHRISTIAN JOHN MD Ot E11 .9 TYPE 2 DIABETES MELLITUS WITHOUT COMPLIC 04/30/2019 CHRISTIAN JOHN MD Ot H35.30 UNSPECIFIED MACULAR DEGENERATION 04/30/2019 CHRISTIAN JOHN MD, Ot I12 .9 HYPERTENSIVE CHRONIC KIDNEY DISEASE W ST 04/30/2019 CHRISTIAN JOHN MD, Ot I25.10 ATHSCL HEART DISEASE OF [place] CORONARY 04/30/2019 CHRISTIAN JOHN MD Ot I48.91 UNSPECIFIED ATRIAL FIBRILLATION 04/30/2019 CHRISTIAN JOHN MD, Ot K21 .9 GASTRO-ESOPHAGEAL REFLUX DISEASE WITHOUT 04/30/2019 CHRISTIAN JOHN MD Ot L40 .9 PSORIASIS, UNSPECIFIED 04/30/2019 CHRISTIAN JOHN MD Ot M06 .9 RHEUMATOID ARTHRITIS, UNSPECIFIED 04/30/2019 CHRISTIAN JOHN MD, Ot M19.91 PRIMARY OSTEOARTHRITIS, UNSPECIFIED SITE 04/30/2019 CHRISTIAN JOHN MD, Ot N17 .9 ACUTE KIDNEY FAILURE, UNSPECIFIED 04/30/2019 CHRISTIAN JOHN MD, Ot N18 .3 CHRONIC KIDNEY DISEASE, STAGE 3 (MODERAT 04/30/2019 CHRISTIAN JOHN MD Ot N40 .0 BENIGN PROSTATIC HYPERPLASIA WITHOUT LOW 04/30/2019 CHRISTIAN JOHN MD Ot R06.00 DYSPNEA, UNSPECIFIED 04/30/2019 CHRISTIAN JOHN MD Ot R53 .1 WEAKNESS 04/30/2019 CHRISTIAN JOHN MD Ot Z66 DO NOT RESUSCITATE 04/30/2019 CHRISTIAN JOHN MD, Ot Z79.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 SUPERVISOR (CURRENT) USE OF ANTICOAGULANT 04/30/2019 CHRISTIAN JOHN MD Ot Z87.891 PERSONAL HISTORY OF NICOTINE DEPENDENCE 04/30/2019 CHRISTIAN JOHN MD Ot Z90.49 ACQUIRED ABSENCE OF OTHER SPECIFIED PART 04/30/2019 CHRISTIAN JOHN MD Ot Z93 .3 COLOSTOMY STATUS 04/30/2019 CHRISTIAN JOHN MD Ot 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 06/21/2019 IGNACIA BURGOS MD Ot 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 06/21/2019 IGNACIA BURGOS MD, Ot E11.52 TYPE 2 DIABETES W DIABETIC PERIPHERAL AN 06/21/2019 IGNACIA BURGOS MD, Ot E11.621 TYPE 2 DIABETES MELLITUS WITH FOOT ULCER 06/21/2019 IGNACIA BURGOS MD Ot E11.65 TYPE 2 DIABETES MELLITUS WITH HYPERGLYCE 06/21/2019 IGNACIA BURGOS MD, Ot I96 GANGRENE, NOT ELSEWHERE CLASSIFIED 06/21/2019 IGNACIA BURGOS MD, Ot N18 .4 CHRONIC KIDNEY DISEASE, STAGE 4 (SEVERE) 06/21/2019 IGNACIA BURGOS MD, Ot R68.89 OTHER GENERAL SYMPTOMS AND SIGNS 06/22/2019 IGNACIA BURGOS MD, Ot 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 06/22/2019 IGNACIA BURGOS MD Ot E11.52 TYPE 2 DIABETES W DIABETIC PERIPHERAL AN 06/22/2019 IGNACIA BURGOS MD, Ot E11.621 TYPE 2 DIABETES MELLITUS WITH FOOT ULCER 06/22/2019 IGNACIA BURGOS MD, Ot E11.65 TYPE 2 DIABETES MELLITUS WITH HYPERGLYCE 06/22/2019 IGNACIA BURGOS MD, Ot 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, UNSTAGEABLE 06/22/2019 IGNACIA BURGOS MD, Ot N18 .4 CHRONIC KIDNEY DISEASE, STAGE 4 (SEVERE) 06/22/2019 IGNACIA BURGOS MD, Ot R68.89 OTHER GENERAL SYMPTOMS AND SIGNS 06/23/2019 IGNACIA BURGOS MD, Ot 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 06/23/2019 IGNACIA BURGOS MD, Ot E11.52 TYPE 2 DIABETES W DIABETIC PERIPHERAL AN 06/23/2019 IGNACIA BURGOS MD, Ot E11.621 TYPE 2 DIABETES MELLITUS WITH FOOT ULCER 06/23/2019 IGNACIA BURGOS MD, Ot E11.65 TYPE 2 DIABETES MELLITUS WITH HYPERGLYCE 06/23/2019 IGNACIA BURGOS MD, Ot I96 GANGRENE, NOT ELSEWHERE CLASSIFIED 06/23/2019 IGNACIA BURGOS MD, Ot N18 .4 CHRONIC KIDNEY DISEASE, STAGE 4 (SEVERE) 06/23/2019 IGNACIA BURGOS MD Ot R68.89 OTHER GENERAL SYMPTOMS AND SIGNS 06/24/2019 IGNACIA BURGOS MD, Ot 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 06/24/2019 IGNACIA BURGOS MD, Ot E11.621 TYPE 2 DIABETES MELLITUS WITH FOOT ULCER 06/24/2019 IGNACIA BURGOS MD, Ot E11.65 TYPE 2 DIABETES MELLITUS WITH HYPERGLYCE 06/24/2019 IGNACIA BURGOS MD Ot 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, UNSTAGEABLE 06/24/2019 IGNACIA BURGOS MD, Ot N18 .4 CHRONIC KIDNEY DISEASE, STAGE 4 (SEVERE) 06/24/2019 IGNACIA BURGOS MD, Ot R68.89 OTHER GENERAL SYMPTOMS AND SIGNS 06/30/2019 IGNACIA BURGOS MD, Ot 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 06/30/2019 IGNACIA BURGOS MD, Ot E11.52 TYPE 2 DIABETES W DIABETIC PERIPHERAL AN 06/30/2019 IGNACIA BURGOS MD, Ot E11.621 TYPE 2 DIABETES MELLITUS WITH FOOT ULCER 06/30/2019 IGNACIA BURGOS MD, Ot E11.65 TYPE 2 DIABETES MELLITUS WITH HYPERGLYCE 06/30/2019 IGNACIA BURGOS MD, Ot I96 GANGRENE, NOT ELSEWHERE CLASSIFIED 06/30/2019 IGNACIA BURGOS MD Ot 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, UNSTAGEABLE 06/30/2019 IGNACIA BURGOS MD, Ot N18 .4 CHRONIC KIDNEY DISEASE, STAGE 4 (SEVERE) 06/30/2019 IGNACIA BURGOS MD, Ot R68.89 OTHER GENERAL SYMPTOMS AND SIGNS 07/01/2019 IGNACIA BURGOS MD, Ot 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 07/01/2019 IGNACIA BURGOS MD, Ot E11.621 TYPE 2 DIABETES MELLITUS WITH FOOT ULCER 07/01/2019 IGNACIA BURGOS MD, Ot E11.65 TYPE 2 DIABETES MELLITUS WITH HYPERGLYCE 07/01/2019 IGNACIA BURGOS MD Ot 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, UNSTAGEABLE 07/01/2019 IGNACIA BURGOS MD, Ot N18 .4 CHRONIC KIDNEY DISEASE, STAGE 4 (SEVERE) 07/01/2019 IGNACIA BURGOS MD Ot R68.89 OTHER GENERAL SYMPTOMS AND SIGNS 07/14/2019 IGNACIA BURGOS MD, Ot 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 07/14/2019 IGNACIA BURGOS MD, Ot E11.52 TYPE 2 DIABETES W DIABETIC PERIPHERAL AN 07/14/2019 IGNACIA BURGOS MD, Ot E11.621 TYPE 2 DIABETES MELLITUS WITH FOOT ULCER 07/14/2019 IGNACIA BURGOS MD, Ot E11.65 TYPE 2 DIABETES MELLITUS WITH HYPERGLYCE 07/14/2019 IGNACIA BURGOS MD, Ot I96 GANGRENE, NOT ELSEWHERE CLASSIFIED 07/14/2019 IGNACIA BURGOS MD, Ot N18 .4 CHRONIC KIDNEY DISEASE, STAGE 4 (SEVERE) 07/14/2019 IGNACIA BURGOS MD Ot R68.89 OTHER GENERAL SYMPTOMS AND SIGNS 07/14/2019 IGNACIA BURGOS MD, Ot 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 07/14/2019 IGNACIA BURGOS MD, Ot E11.52 TYPE 2 DIABETES W DIABETIC PERIPHERAL AN 07/14/2019 IGNACIA BURGOS MD, Ot E11.621 TYPE 2 DIABETES MELLITUS WITH FOOT ULCER 07/14/2019 IGNACIA BURGOS MD, Ot E11.65 TYPE 2 DIABETES MELLITUS WITH HYPERGLYCE 07/14/2019 IGNACIA BURGOS MD Ot 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, UNSTAGEABLE 07/14/2019 IGNACIA BURGOS MD, Ot N18 .4 CHRONIC KIDNEY DISEASE, STAGE 4 (SEVERE) 07/14/2019 IGNACIA BURGOS MD, Ot R68.89 OTHER GENERAL SYMPTOMS AND SIGNS 07/19/2019 IGNACIA BURGOS MD, Ot 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 07/19/2019 IGNACIA BURGOS MD, Ot E11.52 TYPE 2 DIABETES W DIABETIC PERIPHERAL AN 07/19/2019 IGNACIA BURGOS MD, Ot E11.621 TYPE 2 DIABETES MELLITUS WITH FOOT ULCER 07/19/2019 IGNACIA BURGOS MD, Ot E11.65 TYPE 2 DIABETES MELLITUS WITH HYPERGLYCE 07/19/2019 IGNACIA BURGOS MD Ot I96 GANGRENE, NOT ELSEWHERE CLASSIFIED 07/19/2019 IGNACIA BURGOS MD Ot 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, UNSTAGEABLE 07/19/2019 IGNACIA BURGOS MD, Ot N18 .4 CHRONIC KIDNEY DISEASE, STAGE 4 (SEVERE) 07/19/2019 IGNACIA BURGOS MD Ot R68.89 OTHER GENERAL SYMPTOMS AND SIGNS 08/31/2019 JAYE DO JACKELINE Ot E11.9 TYPE 2 DIABETES MELLITUS WITHOUT COMPLIC 08/31/2019 JAYE DO JACKELINE Ot H35.30 UNSPECIFIED MACULAR DEGENERATION 08/31/2019 JAYE DO JACKELINE Ot I12.9 HYPERTENSIVE CHRONIC KIDNEY DISEASE W ST 08/31/2019 JAYE SMITH JACKELINE Ot I25.10 ATHSCL HEART DISEASE OF [place] CORONARY 08/31/2019 JAYE DO JACKELINE Ot I48.0 PAROXYSMAL ATRIAL FIBRILLATION 08/31/2019 JAYE SMITH JACKELINE Ot J44.9 CHRONIC OBSTRUCTIVE PULMONARY DISEASE, U 08/31/2019 JAYE SMITH JACKELINE Ot K21.9 GASTRO-ESOPHAGEAL REFLUX DISEASE WITHOUT 08/31/2019 JAYE SMITH JACKELINE Ot K57.90 DVRTCLOS OF INTEST, PART UNSP, W/O PERF 08/31/2019 JACKELINE CEE DO Ot L03.11 6 CELLULITIS OF LEFT LOWER LIMB 08/31/2019 JACKELINE CEE DO Ot L40.9 PSORIASIS, UNSPECIFIED 08/31/2019 JACKELINE CEE DO Ot 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, UNSPECIFIED 08/31/2019 JACKELINE CEE DO Ot M19.91 PRIMARY OSTEOARTHRITIS, UNSPECIFIED SITE 08/31/2019 JACKELINE CEE DO Ot N17.9 ACUTE KIDNEY FAILURE, UNSPECIFIED 08/31/2019 CARLOS CEE DOI Ot N18.9 CHRONIC KIDNEY DISEASE, UNSPECIFIED 08/31/2019 JACKELINE CEE DO Ot N40.0 BENIGN PROSTATIC HYPERPLASIA WITHOUT LOW 08/31/2019 JACKELINE CEE DO Ot Z79.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 (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) USE OF ANTICOAGULANT 08/31/2019 JACKELINE CEE DO Ot Z79.52 COMPUTER ANALYST SUPERVISOR (CURRENT) USE OF SYSTEMIC STER 08/31/2019 JACKELINE CEE DO Ot Z86.14 PERSONAL HISTORY OF METHICILLIN RESIS ST 08/31/2019 CARLOS CEE DOI Ot Z90.49 ACQUIRED ABSENCE OF OTHER SPECIFIED PART 08/31/2019 JACKELINE CEE DO Ot Z93.2 ILEOSTOMY STATUS 08/31/2019 JACKELINE CEE DO Ot Z95.5 PRESENCE OF CORONARY ANGIOPLASTY IMPLANT 08/31/2019 JAYE SMITH JACKELINE Ot E11.40 TYPE 2 DIABETES MELLITUS WITH DIABETIC N 08/31/2019 CARLOS CEE DOI Ot E11.9 TYPE 2 DIABETES MELLITUS WITHOUT COMPLIC 08/31/2019 JACKELINE CEE DO Ot H35.30 UNSPECIFIED MACULAR DEGENERATION 08/31/2019 CARLOS CEE DOI Ot I12.9 HYPERTENSIVE CHRONIC KIDNEY DISEASE W ST 08/31/2019 CARLOS CEE DOI Ot I25.10 ATHSCL HEART DISEASE OF [place] CORONARY 08/31/2019 JACKELINE CEE DO Ot I48.0 PAROXYSMAL ATRIAL FIBRILLATION 08/31/2019 JAYE SMITH JACKELINE Ot I48.20 CHRONIC ATRIAL FIBRILLATION, UNSPECIFIED 08/31/2019 JAYE SMITH JACKELINE Ot J44.9 CHRONIC OBSTRUCTIVE PULMONARY DISEASE, U 08/31/2019 CARLOS CEE DOI Ot K21.9 GASTRO-ESOPHAGEAL REFLUX DISEASE WITHOUT 08/31/2019 JACKELINE CEE DO Ot K57.90 DVRTCLOS OF INTEST, PART UNSP, W/O PERF 08/31/2019 JACKELINE CEE DO Ot L03.11 6 CELLULITIS OF LEFT LOWER LIMB 08/31/2019 CARLOS CEE DOI Ot L40.9 PSORIASIS, UNSPECIFIED 08/31/2019 JAYE SMITH JACKELINE Ot 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, UNSPECIFIED 08/31/2019 CARLOS CEE DOI Ot M19.91 PRIMARY OSTEOARTHRITIS, UNSPECIFIED SITE 08/31/2019 CARLOS CEE DOI Ot N17.9 ACUTE KIDNEY FAILURE, UNSPECIFIED 08/31/2019 JAYE SMITH JACKELINE Ot N18.3 CHRONIC KIDNEY DISEASE, STAGE 3 (MODERAT 08/31/2019 CARLOS CEE DOI Ot N18.9 CHRONIC KIDNEY DISEASE, UNSPECIFIED 08/31/2019 CARLOS CEE DOI Ot N40.0 BENIGN PROSTATIC HYPERPLASIA WITHOUT LOW 08/31/2019 JACKELINE CEE DO Ot R53.1 WEAKNESS 08/31/2019 JACKELINE CEE DO Ot Z79.01 GROUP HOME (CURRENT) USE OF ANTICOAGULANT 08/31/2019 CARLOS CEE DOI Ot Z79.4 COMPUTER ANALYST SUPERVISOR (CURRENT) USE OF INSULIN 08/31/2019 CARLOS CEE DOI Ot Z79.52 GROUP HOME (CURRENT) USE OF SYSTEMIC STER 08/31/2019 CARLOS CEE DOI Ot Z86.14 PERSONAL HISTORY OF METHICILLIN RESIS ST 08/31/2019 JAYE SMITH JACKELINE Ot Z90.49 ACQUIRED ABSENCE OF OTHER SPECIFIED PART 08/31/2019 CARLOS CEE DOI Ot Z93.2 ILEOSTOMY STATUS 08/31/2019 CARLOS CEE DOI Ot Z93.3 COLOSTOMY STATUS 08/31/2019 CARLOS CEE DOI Ot Z95.5 PRESENCE OF CORONARY ANGIOPLASTY IMPLANT 09/16/2019 ANGELA LU APRN Ot E11 .9 TYPE 2 DIABETES MELLITUS WITHOUT COMPLIC 09/16/2019 ANGELA LU APRN Ot I10 ESSENTIAL (PRIMARY) HYPERTENSION 09/16/2019 ANGELA LU APRN Ot I25.10 ATHSCL HEART DISEASE OF [place] CORONARY 09/16/2019 ANGELA LU APRN Ot K21 .9 GASTRO-ESOPHAGEAL REFLUX DISEASE WITHOUT 09/16/2019 ANGELA LU APRN Ot L03.116 CELLULITIS OF LEFT LOWER LIMB 09/16/2019 ANGELA LU APRN Ot M06 .9 RHEUMATOID ARTHRITIS, UNSPECIFIED 09/16/2019 ANGELA LU APRN Ot M25.562 PAIN IN LEFT KNEE 09/16/2019 ANGELA LU APRN Ot Z79.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 SUPERVISOR (CURRENT) USE OF ANTICOAGULANT 09/16/2019 ANGELA LU APRN Ot Z79.02 COMPUTER ANALYST SUPERVISOR (CURRENT) USE OF ANTITHROMBOTI 09/16/2019 ANGELA LU APRN Ot Z79 .4 GROUP HOME (CURRENT) USE OF INSULIN 09/16/2019 ANGELA LU APRN Ot Z79.52 COMPUTER ANALYST SUPERVISOR (CURRENT) USE OF SYSTEMIC STER 09/16/2019 ANGELA LU APRN Ot Z80 .0 FAMILY HISTORY OF MALIGNANT NEOPLASM OF 09/16/2019 ANGELA LU APRN Ot Z87.891 PERSONAL HISTORY OF NICOTINE DEPENDENCE 09/16/2019 ANGELA LU APRN Ot 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 Procedures Code Description [place] D[address] LIMI T ORAL EVAL PROBLM FOCUS 02/15/2014 D0220 INTR AORAL PERIAPICAL FIRST F 02/15/2014 D7140 EXTR ACTION ERUPTED TOOTH/EXR 02/15/2014 D7140 EXTR ACTION ERUPTED TOOTH/EXR 04/06/2014 61133 JOIN T SURVEY SINGLE VIEW 11/07/2015 64540 OFFI CE/OUTPATIENT VISIT NEW 11/07/2015 13070 X-RA Y EXAM OF ELBOW 11/14/2015 69992 OFFI CE/OUTPATIENT VISIT EST 02/20/2016 76965 FIBR IN DEGRADATION, QUANT 02/26/2016 99914 LUNG PERFUSION IMAGING 02/27/2016 A9540 TC 9 9M MAA UP TO 10 MC 02/27/2016 [id number] IN SPECTION OF UPPER INTESTINAL TRACT, EN 11/18/2018 [id number] DI LATION OF 1 COR ART WITH DRUG-ELUT INT 11/19/2018 [id number] ME ASURE OF CARDIAC SAMPL PRESSURE, L H 11/19/2018 [id number] FL UOROSCOPY OF MULT COR ART USING L OSM 11/19/2018 Results Test Result Range D DIMER - [...] 5-14 Serum or plasma urea nitrogen measurement (mass/volume ) 14 mg/dL 7-18 Serum or plasma creatinine measurement (mass/volume) 2.14 mg/dL 0.60-1.30 Serum or plasma urea nitrogen/creatinine mass ratio 7 NRG Serum or plasma creatinine measurement w ith calculation of estimated glomerular filtration rate 30 NRG Serum or plasma glucose measurement (mass/volume) 427 mg/dL 70-105 Serum or plasma calcium measurement (mass/volume) 8.9 mg/dL 8.5-10.1 Serum or plasma total bilirubin measurement (mass/volu me) 0.5 mg/dL 0.1-1.0 Serum or plasma alkaline phosphatase kimberli surement (enzymatic activity/volume) 73 U/L 40-136 Serum or plasma aspartate aminotransfera se measurement (enzymatic activity/volume) 15 U/L 5-34 Serum or plasma alanine aminotransferase measurement (enzymatic activity/volume) 8 U/L 0-55 Serum or plasma protein measurement (mass/volume) 6.5 g/dL 6.4-8.2 Serum or plasma albumin measurement (mass/volume) 3.8 g/dL 3.2-4.5 Magnesium - 03/31/18 16:10 Magnesium 1.8 mg/dL 1.8-2.4 Serum or plasma troponin i.cardiac measu rement (mass/volume) - 03/31/18 16:10 Serum or plasma troponin i.cardiac measurement (mass/v olume) < ng/mL <0.30 Myoglobin, serum - 03/31/18 16:10 Myoglobin, serum 139.8 ng/mL 10.0-92.0 Complete blood count (CBC) with automate d white blood cell (WBC) differential - 03/31/18 16:40 Blood leukocytes automated count (number/volume) 8.6 10*3/uL 4.3-11.0 Blood erythrocytes automated count (number/volume) 3.18 10*6/uL 4.35-5.85 Venous blood hemoglobin measurement (mass/volume) 9.7 g/dL 13.3-17.7 Blood hematocrit (volume fraction) 31 % 40-54 Automated erythrocyte mean corpuscular volume 99 [ foz_us] 80-99 Automated erythrocyte mean corpuscular h emoglobin (mass per erythrocyte) 31 pg 25-34 Automated erythrocyte mean corpuscular h emoglobin concentration measurement (mass/volume) 31 g/dL 32-36 Automated erythrocyte distribution width ratio 14. 8 % 10.0- 14.5 Automated blood platelet count (count/volume) 197 10*3/uL [...] 10*3 1.0-4.0 Blood monocytes automated count (number/volume) 0. 8 10*3 0.0-1.0 Automated eosinophil count 0.2 10*3/uL 0 .0-0.3 Automated blood basophil count (count/volume) 0.0 10*3/uL 0.0-0.1 Serum or plasma lithium measurement (mol es/volume) - 03/31/18 16:44 BNP level 112.0 pg/mL <100.0 PT panel in platelet poor plasma by coag ulation assay - 03/31/18 17:01 Prothrombin time (PT) in platelet poor plasma by coagu lation assay 13.8 s 12.2-14.7 INR in platelet poor plasma or blood by coagulation as say 1.1 0.8-1.4 Activated partial thromboplastin time (a PTT) in platelet poor plasma bycoagulation assay - 03/31/18 17:01 Activated partial thromboplastin time (a PTT) in platelet poor plasma bycoagulation assay 24 s 24-35 Capillary blood glucose measurement by g lucometer (mass/volume) - 03/31/18 21:16 Capillary blood glucose measurement by glucometer (mas s/volume) 110 mg/dL 70-110 Complete blood count (CBC) with automate d white blood cell (WBC) differential - 04/01/18 06:16 Blood leukocytes automated count (number/volume) 8.3 10*3/uL 4.3-11.0 Blood erythrocytes automated count (number/volume) 3.07 10*6/uL 4.35-5.85 Venous blood hemoglobin measurement (mass/volume) 9.3 g/dL 13.3-17.7 Blood hematocrit (volume fraction) 30 % 40-54 Automated erythrocyte mean corpuscular volume 98 [ foz_us] 80-99 Automated erythrocyte mean corpuscular h emoglobin (mass per erythrocyte) 30 pg 25-34 Automated erythrocyte mean corpuscular h emoglobin concentration measurement (mass/volume) 31 g/dL 32-36 Automated erythrocyte distribution width ratio 15. 0 % 10.0- 14.5 Automated blood platelet count (count/volume) 226 10*3/uL [...] 10*3 1.0-4.0 Blood monocytes automated count (number/volume) 0. 8 10*3 0.0-1.0 Automated eosinophil count 0.1 10*3/uL 0 .0-0.3 Automated blood basophil count (count/volume) 0.0 10*3/uL 0.0-0.1 Comprehensive metabolic panel - 04/01/18 06:16 Serum or plasma sodium measurement (moles/volume) 137 mmol/L 135-145 Serum or plasma potassium measurement (moles/volume) 4.4 mmol/L 3.6-5.0 Serum or plasma chloride measurement (moles/volume) 102 mmol/L 98-107 Carbon dioxide 27 mmol/L 21-32 Serum or plasma anion gap determination (moles/volume) 8 mmol/L 5-14 Serum or plasma urea nitrogen measurement (mass/volume ) 24 mg/dL 7-18 Serum or plasma creatinine measurement (mass/volume) 2.59 mg/dL 0.60-1.30 Serum or plasma urea nitrogen/creatinine mass ratio 9 NRG Serum or plasma creatinine measurement w ith calculation of estimated glomerular filtration rate 24 NRG Serum or plasma glucose measurement (mass/volume) 93 mg/dL 70-105 Serum or plasma calcium measurement (mass/volume) 9.1 mg/dL 8.5-10.1 Serum or plasma total bilirubin measurement (mass/volu me) 0.6 mg/dL 0.1-1.0 Serum or plasma alkaline phosphatase kimberli surement (enzymatic activity/volume) 59 U/L 40-136 Serum or plasma aspartate aminotransfera se measurement (enzymatic activity/volume) 13 U/L 5-34 Serum or plasma alanine aminotransferase measurement (enzymatic activity/volume) 8 U/L 0-55 Serum or plasma protein measurement (mass/volume) 5.8 g/dL 6.4-8.2 Serum or plasma albumin measurement (mass/volume) 3.4 g/dL 3.2-4.5 Serum or plasma troponin i.cardiac measu rement (mass/volume) - 04/01/18 06:16 Serum or plasma troponin i.cardiac measurement (mass/v olume) < ng/mL <0.30 Lipid 1996 panel - 04/01/18 06:16 Serum or plasma triglyceride measurement (mass/volume) 33 mg/dL <150 Serum or plasma cholesterol measurement (mass/volume) 123 mg/dL < 200 Serum or plasma cholesterol in HDL measurement (mass/v olume) 54 mg/dL 40-60 Cholesterol in LDL [mass/volume] in serum or plasma by direct assay 51 mg/dL 1-129 Serum or plasma cholesterol in VLDL measurement (mass/ volume) 7 mg/dL 5-40 Capillary blood glucose measurement by g lucometer (mass/volume) - 04/01/18 11:48 Capillary blood glucose measurement by glucometer (mas s/volume) 222 mg/dL 70-110 Serum or plasma creatinine measurement ( mass/volume) - 04/10/18 10:55 Serum or plasma creatinine measurement (mass/volume) 3.07 mg/dL 0.60-1.30 CULTURE, URINE - 06/25/18 10:10 CULTURE, URINE, ROUTINE SEE NOTE NRG Influenza virus A and B antigen detectio n - 07/20/18 09:28 CALL POSITIVES (F1 HELP) CALLED TO NICK AT 102 4 NRG FLU RESULT POSITIVE FOR INFLUENZA B ANT IGEN, NEG FOR A ANTIGEN, BY [place] [facility] Complete blood count (CBC) with automate d white blood cell (WBC) differential - 07/20/18 09:49 Blood leukocytes automated count (number/volume) 16.8 10*3/uL 4.3-11.0 Blood erythrocytes automated count (number/volume) 4.41 10*6/uL 4.35-5.85 Venous blood hemoglobin measurement (mass/volume) 12.8 g/dL 13.3-17.7 Blood hematocrit (volume fraction) 40 % 40-54 Automated erythrocyte mean corpuscular volume 91 [ foz_us] 80-99 Automated erythrocyte mean corpuscular h emoglobin (mass per erythrocyte) 29 pg 25-34 Automated erythrocyte mean corpuscular h emoglobin concentration measurement (mass/volume) 32 g/dL 32-36 Automated erythrocyte distribution width ratio 14. 4 % 10.0- 14.5 Automated blood platelet count (count/volume) 194 10*3/uL [...] 10*3 1.0-4.0 Blood monocytes automated count (number/volume) 1. 0 10*3 0.0-1.0 Automated eosinophil count 0.1 10*3/uL 0 .0-0.3 Automated blood basophil count (count/volume) 0.0 10*3/uL 0.0-0.1 PT panel in platelet poor plasma by coag ulation assay - 07/20/18 09:49 Prothrombin time (PT) in platelet poor plasma by coagu lation assay 17.1 s 12.2-14.7 INR in platelet poor plasma or blood by coagulation as say 1.4 0.8-1.4 Activated partial thromboplastin time (a PTT) in platelet poor plasma bycoagulation assay - 07/20/18 09:49 Activated partial thromboplastin time (a PTT) in platelet poor plasma bycoagulation assay 34 s 24-35 Blood lactic acid measurement (moles/vol ume) - 07/20/18 09:49 Blood lactic acid measurement (moles/volume) 2.44 mmol/L 0.50-2.00 Blood manual differential performed dete ction - 07/20/18 09:49 Blood monocytes/100 leukocytes 4 % NRG Manual blood segmented neutrophils/100 leukocytes 76 % NRG Blood band neutrophils/100 leukocytes 12 % NRG Manual blood lymphocytes/100 leukocytes 7 % NRG Manual eosinophils/100 leukocytes in nose 1 % NRG Blood erythrocyte morphology finding identification NORMAL NRG Comprehensive metabolic panel - 07/20/18 09:49 Serum or plasma sodium measurement (moles/volume) 134 mmol/L 135-145 Serum or plasma potassium measurement (moles/volume) 3.5 mmol/L 3.6-5.0 Serum or plasma chloride measurement (moles/volume) 96 mmol/L 98-107 Carbon dioxide 24 mmol/L 21-32 Serum or plasma anion gap determination (moles/volume) 14 mmol/L 5-14 Serum or plasma urea nitrogen measurement (mass/volume ) 64 mg/dL 7-18 Serum or plasma creatinine measurement (mass/volume) 3.24 mg/dL 0.60-1.30 Serum or plasma urea nitrogen/creatinine mass ratio 20 NRG Serum or plasma creatinine measurement w ith calculation of estimated glomerular filtration rate 18 NRG Serum or plasma glucose measurement (mass/volume) 233 mg/dL 70-105 Serum or plasma calcium measurement (mass/volume) 9.6 mg/dL 8.5-10.1 Serum or plasma total bilirubin measurement (mass/volu me) 2.4 mg/dL 0.1-1.0 Serum or plasma alkaline phosphatase kimberli surement (enzymatic activity/volume) 75 U/L 40-136 Serum or plasma aspartate aminotransfera se measurement (enzymatic activity/volume) 16 U/L 5-34 Serum or plasma alanine aminotransferase measurement (enzymatic activity/volume) 13 U/L 0-55 Serum or plasma protein measurement (mass/volume) 7.2 g/dL 6.4-8.2 Serum or plasma albumin measurement (mass/volume) 4.0 g/dL 3.2-4.5 CALCIUM CORRECTED 9.6 mg/dL 8.5-10.1 Serum or plasma troponin i.cardiac measu rement (mass/volume) - 07/20/18 09:49 Serum or plasma troponin i.cardiac measurement (mass/v olume) < ng/mL <0.30 Serum or plasma thyrotropin measurement by detection limit <=0.05 miu/l (units/volume) - 07/20/18 09:49 Serum or plasma thyrotropin measurement by detection limit <=0.05 miu/l (units/volume) 3.24 u[iU]/mL 0.35-4.94 Gram stain microscopy - 07/20/18 09:49 Gram stain microscopy Moderate Gram positive cocci in clusters NRG Bacteria identification in wound by cult ure - 07/20/18 09:49 Bacteria identification in wound by culture [id number] NRG FREE TEXT EXTERNAL RML PHONED MRSA REPORT 07/22 11 :36 NRG QUANTITY OF GROWTH FEW NRG FREE TEXT ENTRY 2 RML SENT SENSITIVITY REPORT 06/24 1 12:05 NRG RML Sensitivity Panel - 07/20/18 09:49 Oxacillin susceptibility test by minimum inhibitory co ncentration R NRG Clindamycin susceptibility test by minimum inhibitory concentration <= NRG Erythromycin susceptibility test by minimum inhibitory concentration > NRG Trimethoprim/sulfamethoxazole susceptibi lity test by minimum inhibitoryconcentration S NRG Vancomycin susceptibility test by minimum inhibitory c oncentration 1 NRG Levofloxacin susceptibility test by minimum inhibitory concentration <= NRG Rifampin susceptibility test by minimum inhibitory con centration <= NRG Cefazolin susceptibility test by minimum inhibitory co ncentration > NRG Linezolid susceptibility test by minimum inhibitory co ncentration <= NRG Penicillin G susceptibility test by minimum inhibitory concentration > NRG Moxifloxacin susceptibility test by minimum inhibitory concentration S NRG Minocycline susc HUMBLE <= NRG Bacterial blood culture - 07/20/18 09:50 FREE TEXT EXTERNAL CITROBACTER FREUNDII COMPLEX NRG QUANTITY OF GROWTH Isolated NRG Bacterial blood culture [id number] NRG FREE TEXT ENTRY 2 ID REPORTED 07/22/18 15:05 NRG FREE TEXT ENTRY 3 SENSITIVITY REPORTED 07/23/18 09: 05 NRG RML SENSITIVITY MAIN LAB - 07/20/18 09:5 0 Gentamicin susceptibility test by minimum inhibitory c oncentration <= NRG Trimethoprim/sulfamethoxazole susceptibi lity test by minimum inhibitoryconcentration S NRG Levofloxacin susceptibility test by minimum inhibitory concentration <= NRG Ampicillin susceptibility test by minimum inhibitory c oncentration R NRG Cefazolin susceptibility test by minimum inhibitory co ncentration R NRG Ceftriaxone susceptibility test by minimum inhibitory concentration <= NRG Piperacillin/tazobactam susceptibility t est by minimum inhibitory concentration S NRG Ciprofloxacin susceptibility test by minimum inhibitor y concentration <= NRG Meropenem susceptibility test by minimum inhibitory co ncentration <= NRG Amoxicillin and clavulanate potassium susc HUMBLE R NRG Imipenem susceptibility test by minimum inhibitory con centration S NRG Bacterial blood culture - 07/20/18 10:10 Bacterial blood culture NG NRG Complete urinalysis with reflex to cultu re - 07/20/18 10:52 Urine color determination MOHSEN NRG Urine clarity determination VERY CLOUDY NRG Urine pH measurement by test strip 5 5-9 Specific gravity of urine by test strip 1.020 1.016-1.022 Urine protein assay by test strip, semi-quantitative 3+ NEGATIVE Urine glucose detection by automated test strip NE GATIVE NEGATIVE Erythrocytes detection in urine sediment by light micr oscopy 2+ NEGATIVE Urine ketones detection by automated test strip NE GATIVE NEGATIVE Urine nitrite detection by test strip NEGATIVE NEGATIVE Urine total bilirubin detection by test strip NEGA TIVE NEGATIVE Urine urobilinogen measurement by automated test strip (mass/volume) NORMAL NORMAL Urine leukocyte esterase detection by dipstick 3+ NEGATIVE Automated urine sediment erythrocyte cou nt by microscopy (number/high power field) NONE NRG Automated urine sediment leukocyte count by microscopy (number/high power field) TNTC NRG Bacteria detection in urine sediment by light microsco py MODERATE NRG Squamous epithelial cells detection in u rine sediment by light microscopy 0-2 NRG Crystals detection in urine sediment by light microsco py NONE NRG Casts detection in urine sediment by light microscopy NONE NRG Mucus detection in urine sediment by light microscopy NEGATIVE NRG Complete urinalysis with reflex to culture NO NRG Bacterial urine culture - 07/20/18 10:52 Bacterial urine culture SEE COMMEN NRG COLONY COUNT . NRG FTX;REPORTABLE ID REPORTED 07/21/18 16:05 NRG FREE TEXT ENTRY 2 RML SENT SENSITIVITY REPORT 06/24 09:05 NRG RML Sensitivity Panel - 07/20/18 10:52 Gentamicin susceptibility test by minimum inhibitory c oncentration <= NRG Trimethoprim/sulfamethoxazole susceptibi lity test by minimum inhibitoryconcentration S NRG Levofloxacin susceptibility test by minimum inhibitory concentration <= NRG Ampicillin susceptibility test by minimum inhibitory c oncentration R NRG Cefazolin susceptibility test by minimum inhibitory co ncentration R NRG Ceftriaxone susceptibility test by minimum inhibitory concentration <= NRG Ciprofloxacin susceptibility test by minimum inhibitor y concentration <= NRG Meropenem susceptibility test by minimum inhibitory co ncentration <= NRG Nitrofurantoin susceptibility test by mi nimum inhibitory concentration <= NRG Amoxicillin and clavulanate potassium susc HUMBLE R NRG Serum or plasma lactate measurement (mol es/volume) - 07/20/18 11:48 Serum or plasma lactate measurement (moles/volume) 0.96 mmol/L 0.50-2.00 Capillary blood glucose measurement by g lucometer (mass/volume) - 07/20/18 16:44 Capillary blood glucose measurement by glucometer (mas s/volume) 296 mg/dL 70-110 Capillary blood glucose measurement by g lucometer (mass/volume) - 07/20/18 21:04 Capillary blood glucose measurement by glucometer (mas s/volume) 276 mg/dL 70-110 Complete blood count (CBC) with automate d white blood cell (WBC) differential - 07/21/18 08:55 Blood leukocytes automated count (number/volume) 12.3 10*3/uL 4.3-11.0 Blood erythrocytes automated count (number/volume) 3.72 10*6/uL 4.35-5.85 Venous blood hemoglobin measurement (mass/volume) 10.9 g/dL 13.3-17.7 Blood hematocrit (volume fraction) 33 % 40-54 Automated erythrocyte mean corpuscular volume 90 [ foz_us] 80-99 Automated erythrocyte mean corpuscular h emoglobin (mass per erythrocyte) 29 pg 25-34 Automated erythrocyte mean corpuscular h emoglobin concentration measurement (mass/volume) 33 g/dL 32-36 Automated erythrocyte distribution width ratio 14. 6 % 10.0- 14.5 Automated blood platelet count (count/volume) 169 10*3/uL [...] 10*3 1.0-4.0 Blood monocytes automated count (number/volume) 0. 6 10*3 0.0-1.0 Automated eosinophil count 0.1 10*3/uL 0 .0-0.3 Automated blood basophil count (count/volume) 0.0 10*3/uL 0.0-0.1 Comprehensive metabolic panel - 07/21/18 08:55 Serum or plasma sodium measurement (moles/volume) 134 mmol/L 135-145 Serum or plasma potassium measurement (moles/volume) 3.4 mmol/L 3.6-5.0 Serum or plasma chloride measurement (moles/volume) 99 mmol/L 98-107 Carbon dioxide 22 mmol/L 21-32 Serum or plasma anion gap determination (moles/volume) 13 mmol/L 5-14 Serum or plasma urea nitrogen measurement (mass/volume ) 63 mg/dL 7-18 Serum or plasma creatinine measurement (mass/volume) 2.91 mg/dL 0.60-1.30 Serum or plasma urea nitrogen/creatinine mass ratio 22 NRG Serum or plasma creatinine measurement w ith calculation of estimated glomerular filtration rate 21 NRG Serum or plasma glucose measurement (mass/volume) 280 mg/dL 70-105 Serum or plasma calcium measurement (mass/volume) 8.9 mg/dL 8.5-10.1 Serum or plasma total bilirubin measurement (mass/volu me) 1.2 mg/dL 0.1-1.0 Serum or plasma alkaline phosphatase kimberli surement (enzymatic activity/volume) 65 U/L 40-136 Serum or plasma aspartate aminotransfera se measurement (enzymatic activity/volume) 15 U/L 5-34 Serum or plasma alanine aminotransferase measurement (enzymatic activity/volume) 12 U/L 0-55 Serum or plasma protein measurement (mass/volume) 6.4 g/dL 6.4-8.2 Serum or plasma albumin measurement (mass/volume) 3.4 g/dL 3.2-4.5 CALCIUM CORRECTED 9.4 mg/dL 8.5-10.1 Capillary blood glucose measurement by g lucometer (mass/volume) - 07/21/18 11:05 Capillary blood glucose measurement by glucometer (mas s/volume) 268 mg/dL 70-110 Vancomycin trough - 07/21/18 12:20 Vancomycin trough 13.6 ug/mL 10.0-20.0 Capillary blood glucose measurement by g lucometer (mass/volume) - 07/21/18 15:50 Capillary blood glucose measurement by glucometer (mas s/volume) 290 mg/dL 70-110 Capillary blood glucose measurement by g lucometer (mass/volume) - 07/21/18 19:53 Capillary blood glucose measurement by glucometer (mas s/volume) 248 mg/dL 70-110 Capillary blood glucose measurement by g lucometer (mass/volume) - 07/22/18 05:28 Capillary blood glucose measurement by glucometer (mas s/volume) 321 mg/dL 70-110 Complete blood count (CBC) with automate d white blood cell (WBC) differential - 07/22/18 05:35 Blood leukocytes automated count (number/volume) 9.4 10*3/uL 4.3-11.0 Blood erythrocytes automated count (number/volume) 3.60 10*6/uL 4.35-5.85 Venous blood hemoglobin measurement (mass/volume) 10.4 g/dL 13.3-17.7 Blood hematocrit (volume fraction) 33 % 40-54 Automated erythrocyte mean corpuscular volume 91 [ foz_us] 80-99 Automated erythrocyte mean corpuscular h emoglobin (mass per erythrocyte) 29 pg 25-34 Automated erythrocyte mean corpuscular h emoglobin concentration measurement (mass/volume) 32 g/dL 32-36 Automated erythrocyte distribution width ratio 14. 1 % 10.0- 14.5 Automated blood platelet count (count/volume) 175 10*3/uL [...] 10*3 1.0-4.0 Blood monocytes automated count (number/volume) 0. 7 10*3 0.0-1.0 Automated eosinophil count 0.1 10*3/uL 0 .0-0.3 Automated blood basophil count (count/volume) 0.0 10*3/uL 0.0-0.1 Comprehensive metabolic panel - 07/22/18 05:35 Serum or plasma sodium measurement (moles/volume) 137 mmol/L 135-145 Serum or plasma potassium measurement (moles/volume) 3.7 mmol/L 3.6-5.0 Serum or plasma chloride measurement (moles/volume) 105 mmol/L 98-107 Carbon dioxide 19 mmol/L 21-32 Serum or plasma anion gap determination (moles/volume) 13 mmol/L 5-14 Serum or plasma urea nitrogen measurement (mass/volume ) 57 mg/dL 7-18 Serum or plasma creatinine measurement (mass/volume) 2.61 mg/dL 0.60-1.30 Serum or plasma urea nitrogen/creatinine mass ratio 22 NRG Serum or plasma creatinine measurement w ith calculation of estimated glomerular filtration rate 23 NRG Serum or plasma glucose measurement (mass/volume) 327 mg/dL 70-105 Serum or plasma calcium measurement (mass/volume) 8.9 mg/dL 8.5-10.1 Serum or plasma total bilirubin measurement (mass/volu me) 0.5 mg/dL 0.1-1.0 Serum or plasma alkaline phosphatase kimberli surement (enzymatic activity/volume) 81 U/L 40-136 Serum or plasma aspartate aminotransfera se measurement (enzymatic activity/volume) 15 U/L 5-34 Serum or plasma alanine aminotransferase measurement (enzymatic activity/volume) 15 U/L 0-55 Serum or plasma protein measurement (mass/volume) 5.7 g/dL 6.4-8.2 Serum or plasma albumin measurement (mass/volume) 3.1 g/dL 3.2-4.5 CALCIUM CORRECTED 9.6 mg/dL 8.5-10.1 Capillary blood glucose measurement by g lucometer (mass/volume) - 07/22/18 11:31 Capillary blood glucose measurement by glucometer (mas s/volume) 238 mg/dL 70-110 Capillary blood glucose measurement by g lucometer (mass/volume) - 07/22/18 15:57 Capillary blood glucose measurement by glucometer (mas s/volume) 374 mg/dL 70-110 Capillary blood glucose measurement by g lucometer (mass/volume) - 07/22/18 20:11 Capillary blood glucose measurement by glucometer (mas s/volume) 341 mg/dL 70-110 Capillary blood glucose measurement by g lucometer (mass/volume) - 07/23/18 05:28 Capillary blood glucose measurement by glucometer (mas s/volume) 185 mg/dL 70-110 Whole blood basic metabolic panel - 10/09 05:55 Serum or plasma sodium measurement (moles/volume) 140 mmol/L 135-145 Serum or plasma potassium measurement (moles/volume) 3.8 mmol/L 3.6-5.0 Serum or plasma chloride measurement (moles/volume) 105 mmol/L 98-107 Carbon dioxide 22 mmol/L 21-32 Serum or plasma anion gap determination (moles/volume) 13 mmol/L 5-14 Serum or plasma urea nitrogen measurement (mass/volume ) 58 mg/dL 7-18 Serum or plasma creatinine measurement (mass/volume) 2.54 mg/dL 0.60-1.30 Serum or plasma urea nitrogen/creatinine mass ratio 23 NRG Serum or plasma creatinine measurement w ith calculation of estimated glomerular filtration rate 24 NRG Serum or plasma glucose measurement (mass/volume) 189 mg/dL 70-105 Serum or plasma calcium measurement (mass/volume) 9.1 mg/dL 8.5-10.1 Capillary blood glucose measurement by g lucometer (mass/volume) - 07/23/18 08:41 Capillary blood glucose measurement by glucometer (mas s/volume) 164 mg/dL 70-110 Vancomycin trough - 07/23/18 12:41 Vancomycin trough 21.8 ug/mL 10.0-20.0 Capillary blood glucose measurement by g lucometer (mass/volume) - 07/23/18 14:31 Capillary blood glucose measurement by glucometer (mas s/volume) 365 mg/dL 70-110 Capillary blood glucose measurement by g lucometer (mass/volume) - 07/23/18 16:30 Capillary blood glucose measurement by glucometer (mas s/volume) 299 mg/dL 70-110 Capillary blood glucose measurement by g lucometer (mass/volume) - 07/23/18 21:39 Capillary blood glucose measurement by glucometer (mas s/volume) 317 mg/dL 70-110 Capillary blood glucose measurement by g lucometer (mass/volume) - 07/24/18 05:13 Capillary blood glucose measurement by glucometer (mas s/volume) 223 mg/dL 70-110 Capillary blood glucose measurement by g lucometer (mass/volume) - 07/24/18 10:34 Capillary blood glucose measurement by glucometer (mas s/volume) 276 mg/dL 70-110 Complete blood count (CBC) with automate d white blood cell (WBC) differential - 11/18/18 11:09 Blood leukocytes automated count (number/volume) 11.6 10*3/uL 4.3-11.0 Blood erythrocytes automated count (number/volume) 4.49 10*6/uL 4.35-5.85 Venous blood hemoglobin measurement (mass/volume) 13.0 g/dL 13.3-17.7 Blood hematocrit (volume fraction) 41 % 40-54 Automated erythrocyte mean corpuscular volume 92 [ foz_us] 80-99 Automated erythrocyte mean corpuscular h emoglobin (mass per erythrocyte) 29 pg 25-34 Automated erythrocyte mean corpuscular h emoglobin concentration measurement (mass/volume) 32 g/dL 32-36 Automated erythrocyte distribution width ratio 14. 7 % 10.0- 14.5 Automated blood platelet count (count/volume) 239 10*3/uL [...] 10*3 1.0-4.0 Blood monocytes automated count (number/volume) 0. 9 10*3 0.0-1.0 Automated eosinophil count 0.2 10*3/uL 0 .0-0.3 Automated blood basophil count (count/volume) 0.1 10*3/uL 0.0-0.1 PT panel in platelet poor plasma by coag ulation assay - 11/18/18 11:09 Prothrombin time (PT) in platelet poor plasma by coagu lation assay 13.9 s 12.2-14.7 INR in platelet poor plasma or blood by coagulation as say 1.1 0.8-1.4 Activated partial thromboplastin time (a PTT) in platelet poor plasma bycoagulation assay - 11/18/18 11:09 Activated partial thromboplastin time (a PTT) in platelet poor plasma bycoagulation assay 29 s 24-35 Comprehensive metabolic panel - 11/18/18 11:09 Serum or plasma sodium measurement (moles/volume) 136 mmol/L 135-145 Serum or plasma potassium measurement (moles/volume) 4.2 mmol/L 3.6-5.0 Serum or plasma chloride measurement (moles/volume) 101 mmol/L 98-107 Carbon dioxide 22 mmol/L 21-32 Serum or plasma anion gap determination (moles/volume) 13 mmol/L 5-14 Serum or plasma urea nitrogen measurement (mass/volume ) 60 mg/dL 7-18 Serum or plasma creatinine measurement (mass/volume) 3.03 mg/dL 0.60-1.30 Serum or plasma urea nitrogen/creatinine mass ratio 20 NRG Serum or plasma creatinine measurement w ith calculation of estimated glomerular filtration rate 20 NRG Serum or plasma glucose measurement (mass/volume) 421 mg/dL 70-105 Serum or plasma calcium measurement (mass/volume) 9.2 mg/dL 8.5-10.1 Serum or plasma total bilirubin measurement (mass/volu me) 0.6 mg/dL 0.1-1.0 Serum or plasma alkaline phosphatase kimberli surement (enzymatic activity/volume) 110 U/L 40-136 Serum or plasma aspartate aminotransfera se measurement (enzymatic activity/volume) 16 U/L 5-34 Serum or plasma alanine aminotransferase measurement (enzymatic activity/volume) 22 U/L 0-55 Serum or plasma protein measurement (mass/volume) 7.4 g/dL 6.4-8.2 Serum or plasma albumin measurement (mass/volume) 4.0 g/dL 3.2-4.5 CALCIUM CORRECTED 9.2 mg/dL 8.5-10.1 Magnesium - 11/18/18 11:09 Magnesium 2.2 mg/dL 1.8-2.4 Serum or plasma troponin i.cardiac measu rement (mass/volume) - 11/18/18 11:09 Serum or plasma troponin i.cardiac measurement (mass/v olume) < ng/mL <0.028 Myoglobin, serum - 11/18/18 11:09 Myoglobin, serum 102.0 ng/mL 10.0-92.0 Serum or plasma lithium measurement (mol es/volume) - 11/18/18 11:09 BNP level 68.7 pg/mL <100.0 Complete urinalysis with reflex to cultu re - 11/18/18 12:09 Urine color determination YELLOW NRG Urine clarity determination CLEAR NR G Urine pH measurement by test strip 5 5-9 Specific gravity of urine by test strip 1.010 1.016-1.022 Urine protein assay by test strip, semi-quantitative NEGATIVE NEGATIVE Urine glucose detection by automated test strip 4+ NEGATIVE Erythrocytes detection in urine sediment by light micr oscopy NEGATIVE NEGATIVE Urine ketones detection by automated test strip NE GATIVE NEGATIVE Urine nitrite detection by test strip NEGATIVE NEGATIVE Urine total bilirubin detection by test strip NEGA TIVE NEGATIVE Urine urobilinogen measurement by automated test strip (mass/volume) NORMAL NORMAL Urine leukocyte esterase detection by dipstick NEG ATIVE NEGATIVE Automated urine sediment erythrocyte cou nt by microscopy (number/high power field) NONE NRG Automated urine sediment leukocyte count by microscopy (number/high power field) [HPF] NRG Bacteria detection in urine sediment by light microsco py NEGATIVE NRG Squamous epithelial cells detection in u rine sediment by light microscopy 2-5 NRG Crystals detection in urine sediment by light microsco py NONE NRG Casts detection in urine sediment by light microscopy NONE NRG Mucus detection in urine sediment by light microscopy NEGATIVE NRG Complete urinalysis with reflex to culture NO NRG Capillary blood glucose measurement by g lucometer (mass/volume) - 11/18/18 15:51 Capillary blood glucose measurement by glucometer (mas s/volume) 214 mg/dL 70-110 Serum or plasma troponin i.cardiac measu rement (mass/volume) - 11/18/18 18:00 Serum or plasma troponin i.cardiac measurement (mass/v olume) < ng/mL <0.028 Capillary blood glucose measurement by g lucometer (mass/volume) - 11/18/18 20:23 Capillary blood glucose measurement by glucometer (mas s/volume) 367 mg/dL 70-110 Capillary blood glucose measurement by g lucometer (mass/volume) - 11/19/18 05:49 Capillary blood glucose measurement by glucometer (mas s/volume) 147 mg/dL 70-110 Myoglobin, serum - 11/19/18 07:12 Myoglobin, serum 123.6 ng/mL 10.0-92.0 Lipid 1996 panel - 11/19/18 07:12 Serum or plasma triglyceride measurement (mass/volume) 154 mg/dL <150 Serum or plasma cholesterol measurement (mass/volume) 126 mg/dL < 200 Serum or plasma cholesterol in HDL measurement (mass/v olume) 44 mg/dL 40-60 Cholesterol in LDL [mass/volume] in serum or plasma by direct assay 56 mg/dL 1-129 Serum or plasma cholesterol in VLDL measurement (mass/ volume) 31 mg/dL 5-40 Complete blood count (CBC) with automate d white blood cell (WBC) differential - 11/19/18 07:42 Blood leukocytes automated count (number/volume) 10.8 10*3/uL 4.3-11.0 Blood erythrocytes automated count (number/volume) 4.13 10*6/uL 4.35-5.85 Venous blood hemoglobin measurement (mass/volume) 12.2 g/dL 13.3-17.7 Blood hematocrit (volume fraction) 38 % 40-54 Automated erythrocyte mean corpuscular volume 93 [ foz_us] 80-99 Automated erythrocyte mean corpuscular h emoglobin (mass per erythrocyte) 30 pg 25-34 Automated erythrocyte mean corpuscular h emoglobin concentration measurement (mass/volume) 32 g/dL 32-36 Automated erythrocyte distribution width ratio 14. 8 % 10.0- 14.5 Automated blood platelet count (count/volume) 225 10*3/uL 130-400 Automated blood platelet mean volume measurement 9.7 [foz_us] 7.4-10.4 Automated blood neutrophils/100 leukocytes 75 % 42-75 Automated blood lymphocytes/100 leukocytes 16 % 12-44 Blood monocytes/100 leukocytes 8 % 0-12 Automated blood eosinophils/100 leukocytes 1 % 0-10 Automated blood basophils/100 leukocytes 0 % 0-10 Blood neutrophils automated count (number/volume) 8.1 10*3 1.8-7.8 Blood lymphocytes automated count (number/volume) 1.7 10*3 1.0-4.0 Blood monocytes automated count (number/volume) 0. 8 10*3 0.0-1.0 Automated eosinophil count 0.1 10*3/uL 0 .0-0.3 Automated blood basophil count (count/volume) 0.0 10*3/uL 0.0-0.1 Comprehensive metabolic panel - 11/19/18 07:42 Serum or plasma sodium measurement (moles/volume) 139 mmol/L 135-145 Serum or plasma potassium measurement (moles/volume) 4.1 mmol/L 3.6-5.0 Serum or plasma chloride measurement (moles/volume) 107 mmol/L 98-107 Carbon dioxide 20 mmol/L 21-32 Serum or plasma anion gap determination (moles/volume) 12 mmol/L 5-14 Serum or plasma urea nitrogen measurement (mass/volume ) 50 mg/dL 7-18 Serum or plasma creatinine measurement (mass/volume) 2.46 mg/dL 0.60-1.30 Serum or plasma urea nitrogen/creatinine mass ratio 20 NRG Serum or plasma creatinine measurement w ith calculation of estimated glomerular filtration rate 25 NRG Serum or plasma glucose measurement (mass/volume) 136 mg/dL 70-105 Serum or plasma calcium measurement (mass/volume) 9.0 mg/dL 8.5-10.1 Serum or plasma total bilirubin measurement (mass/volu me) 0.9 mg/dL 0.1-1.0 Serum or plasma alkaline phosphatase kimberli surement (enzymatic activity/volume) 62 U/L 40-136 Serum or plasma aspartate aminotransfera se measurement (enzymatic activity/volume) 17 U/L 5-34 Serum or plasma alanine aminotransferase measurement (enzymatic activity/volume) 17 U/L 0-55 Serum or plasma protein measurement (mass/volume) 6.6 g/dL 6.4-8.2 Serum or plasma albumin measurement (mass/volume) 3.6 g/dL 3.2-4.5 CALCIUM CORRECTED 9.3 mg/dL 8.5-10.1 Capillary blood glucose measurement by g lucometer (mass/volume) - 11/19/18 11:04 Capillary blood glucose measurement by glucometer (mas s/volume) 106 mg/dL 70-110 Capillary blood glucose measurement by g lucometer (mass/volume) - 11/19/18 17:14 Capillary blood glucose measurement by glucometer (mas s/volume) 131 mg/dL 70-110 Capillary blood glucose measurement by g lucometer (mass/volume) - 11/19/18 20:22 Capillary blood glucose measurement by glucometer (mas s/volume) 224 mg/dL 70-110 Complete blood count (CBC) with automate d white blood cell (WBC) differential - 11/20/18 04:05 Blood leukocytes automated count (number/volume) 9.7 10*3/uL 4.3-11.0 Blood erythrocytes automated count (number/volume) 3.71 10*6/uL 4.35-5.85 Venous blood hemoglobin measurement (mass/volume) 10.7 g/dL 13.3-17.7 Blood hematocrit (volume fraction) 35 % 40-54 Automated erythrocyte mean corpuscular volume 93 [ foz_us] 80-99 Automated erythrocyte mean corpuscular h emoglobin (mass per erythrocyte) 29 pg 25-34 Automated erythrocyte mean corpuscular h emoglobin concentration measurement (mass/volume) 31 g/dL 32-36 Automated erythrocyte distribution width ratio 14. 6 % 10.0- 14.5 Automated blood platelet count (count/volume) 189 10*3/uL 130-400 Automated blood platelet mean volume measurement 9.1 [foz_us] 7.4-10.4 Automated blood neutrophils/100 leukocytes 81 % 42-75 Automated blood lymphocytes/100 leukocytes 10 % 12-44 Blood monocytes/100 leukocytes 8 % 0-12 Automated blood eosinophils/100 leukocytes 1 % 0-10 Automated blood basophils/100 leukocytes 0 % 0-10 Blood neutrophils automated count (number/volume) 7.9 10*3 1.8-7.8 Blood lymphocytes automated count (number/volume) 1.0 10*3 1.0-4.0 Blood monocytes automated count (number/volume) 0. 7 10*3 0.0-1.0 Automated eosinophil count 0.1 10*3/uL 0 .0-0.3 Automated blood basophil count (count/volume) 0.0 10*3/uL 0.0-0.1 Comprehensive metabolic panel - 11/20/18 04:05 Serum or plasma sodium measurement (moles/volume) 140 mmol/L 135-145 Serum or plasma potassium measurement (moles/volume) 4.7 mmol/L 3.6-5.0 Serum or plasma chloride measurement (moles/volume) 112 mmol/L 98-107 Carbon dioxide 20 mmol/L 21-32 Serum or plasma anion gap determination (moles/volume) 8 mmol/L 5-14 Serum or plasma urea nitrogen measurement (mass/volume ) 34 mg/dL 7-18 Serum or plasma creatinine measurement (mass/volume) 2.14 mg/dL 0.60-1.30 Serum or plasma urea nitrogen/creatinine mass ratio 16 NRG Serum or plasma creatinine measurement w ith calculation of estimated glomerular filtration rate 29 NRG Serum or plasma glucose measurement (mass/volume) 178 mg/dL 70-105 Serum or plasma calcium measurement (mass/volume) 8.2 mg/dL 8.5-10.1 Serum or plasma total bilirubin measurement (mass/volu me) 1.1 mg/dL 0.1-1.0 Serum or plasma alkaline phosphatase kimberli surement (enzymatic activity/volume) 56 U/L 40-136 Serum or plasma aspartate aminotransfera se measurement (enzymatic activity/volume) 17 U/L 5-34 Serum or plasma alanine aminotransferase measurement (enzymatic activity/volume) 15 U/L 0-55 Serum or plasma protein measurement (mass/volume) 5.7 g/dL 6.4-8.2 Serum or plasma albumin measurement (mass/volume) 3.1 g/dL 3.2-4.5 CALCIUM CORRECTED 8.9 mg/dL 8.5-10.1 Capillary blood glucose measurement by g lucometer (mass/volume) - 11/20/18 11:29 Capillary blood glucose measurement by glucometer (mas s/volume) 265 mg/dL 70-110 Capillary blood glucose measurement by g lucometer (mass/volume) - 11/20/18 15:57 Capillary blood glucose measurement by glucometer (mas s/volume) 197 mg/dL 70-110 Capillary blood glucose measurement by g lucometer (mass/volume) - 11/20/18 20:37 Capillary blood glucose measurement by glucometer (mas s/volume) 201 mg/dL 70-110 Complete blood count (CBC) with automate d white blood cell (WBC) differential - 11/21/18 03:25 Blood leukocytes automated count (number/volume) 8.3 10*3/uL 4.3-11.0 Blood erythrocytes automated count (number/volume) 3.33 10*6/uL 4.35-5.85 Venous blood hemoglobin measurement (mass/volume) 9.7 g/dL 13.3-17.7 Blood hematocrit (volume fraction) 31 % 40-54 Automated erythrocyte mean corpuscular volume 93 [ foz_us] 80-99 Automated erythrocyte mean corpuscular h emoglobin (mass per erythrocyte) 29 pg 25-34 Automated erythrocyte mean corpuscular h emoglobin concentration measurement (mass/volume) 32 g/dL 32-36 Automated erythrocyte distribution width ratio 14. 9 % 10.0- 14.5 Automated blood platelet count (count/volume) 172 10*3/uL 130-400 Automated blood platelet mean volume measurement 9.6 [foz_us] 7.4-10.4 Automated blood neutrophils/100 leukocytes 85 % 42-75 Automated blood lymphocytes/100 leukocytes 8 % 12-44 Blood monocytes/100 leukocytes 7 % 0-12 Automated blood eosinophils/100 leukocytes 1 % 0-10 Automated blood basophils/100 leukocytes 0 % 0-10 Blood neutrophils automated count (number/volume) 7.0 10*3 1.8-7.8 Blood lymphocytes automated count (number/volume) 0.7 10*3 1.0-4.0 Blood monocytes automated count (number/volume) 0. 6 10*3 0.0-1.0 Automated eosinophil count 0.1 10*3/uL 0 .0-0.3 Automated blood basophil count (count/volume) 0.0 10*3/uL 0.0-0.1 Comprehensive metabolic panel - 11/21/18 03:25 Serum or plasma sodium measurement (moles/volume) 139 mmol/L 135-145 Serum or plasma potassium measurement (moles/volume) 4.2 mmol/L 3.6-5.0 Serum or plasma chloride measurement (moles/volume) 111 mmol/L 98-107 Carbon dioxide 19 mmol/L 21-32 Serum or plasma anion gap determination (moles/volume) 9 mmol/L 5-14 Serum or plasma urea nitrogen measurement (mass/volume ) 30 mg/dL 7-18 Serum or plasma creatinine measurement (mass/volume) 2.03 mg/dL 0.60-1.30 Serum or plasma urea nitrogen/creatinine mass ratio 15 NRG Serum or plasma creatinine measurement w ith calculation of estimated glomerular filtration rate 31 NRG Serum or plasma glucose measurement (mass/volume) 159 mg/dL 70-105 Serum or plasma calcium measurement (mass/volume) 8.6 mg/dL 8.5-10.1 Serum or plasma total bilirubin measurement (mass/volu me) 1.0 mg/dL 0.1-1.0 Serum or plasma alkaline phosphatase kimberli surement (enzymatic activity/volume) 48 U/L 40-136 Serum or plasma aspartate aminotransfera se measurement (enzymatic activity/volume) 18 U/L 5-34 Serum or plasma alanine aminotransferase measurement (enzymatic activity/volume) 12 U/L 0-55 Serum or plasma protein measurement (mass/volume) 5.6 g/dL 6.4-8.2 Serum or plasma albumin measurement (mass/volume) 3.2 g/dL 3.2-4.5 CALCIUM CORRECTED 9.2 mg/dL 8.5-10.1 Capillary blood glucose measurement by g lucometer (mass/volume) - 11/21/18 06:21 Capillary blood glucose measurement by glucometer (mas s/volume) 110 mg/dL 70-110 Capillary blood glucose measurement by g lucometer (mass/volume) - 11/21/18 11:02 Capillary blood glucose measurement by glucometer (mas s/volume) 107 mg/dL 70-110 Capillary blood glucose measurement by g lucometer (mass/volume) - 11/21/18 15:54 Capillary blood glucose measurement by glucometer (mas s/volume) 138 mg/dL 70-110 Capillary blood glucose measurement by g lucometer (mass/volume) - 11/21/18 20:35 Capillary blood glucose measurement by glucometer (mas s/volume) 363 mg/dL 70-110 Capillary blood glucose measurement by g lucometer (mass/volume) - 11/22/18 05:29 Capillary blood glucose measurement by glucometer (mas s/volume) 297 mg/dL 70-110 Complete blood count (CBC) with automate d white blood cell (WBC) differential - 11/22/18 05:33 Blood leukocytes automated count (number/volume) 9.0 10*3/uL 4.3-11.0 Blood erythrocytes automated count (number/volume) 3.44 10*6/uL 4.35-5.85 Venous blood hemoglobin measurement (mass/volume) 10.2 g/dL 13.3-17.7 Blood hematocrit (volume fraction) 32 % 40-54 Automated erythrocyte mean corpuscular volume 93 [ foz_us] 80-99 Automated erythrocyte mean corpuscular h emoglobin (mass per erythrocyte) 30 pg 25-34 Automated erythrocyte mean corpuscular h emoglobin concentration measurement (mass/volume) 32 g/dL 32-36 Automated erythrocyte distribution width ratio 14. 8 % 10.0- 14.5 Automated blood platelet count (count/volume) 181 10*3/uL 130-400 Automated blood platelet mean volume measurement 9.5 [foz_us] 7.4-10.4 Automated blood neutrophils/100 leukocytes 91 % 42-75 Automated blood lymphocytes/100 leukocytes 5 % 12-44 Blood monocytes/100 leukocytes 4 % 0-12 Automated blood eosinophils/100 leukocytes 0 % 0-10 Automated blood basophils/100 leukocytes 0 % 0-10 Blood neutrophils automated count (number/volume) 8.2 10*3 1.8-7.8 Blood lymphocytes automated count (number/volume) 0.4 10*3 1.0-4.0 Blood monocytes automated count (number/volume) 0. 4 10*3 0.0-1.0 Automated eosinophil count 0.0 10*3/uL 0 .0-0.3 Automated blood basophil count (count/volume) 0.0 10*3/uL 0.0-0.1 Comprehensive metabolic panel - 11/22/18 05:33 Serum or plasma sodium measurement (moles/volume) 138 mmol/L 135-145 Serum or plasma potassium measurement (moles/volume) 4.7 mmol/L 3.6-5.0 Serum or plasma chloride measurement (moles/volume) 112 mmol/L 98-107 Carbon dioxide 18 mmol/L 21-32 Serum or plasma anion gap determination (moles/volume) 8 mmol/L 5-14 Serum or plasma urea nitrogen measurement (mass/volume ) 24 mg/dL 7-18 Serum or plasma creatinine measurement (mass/volume) 2.15 mg/dL 0.60-1.30 Serum or plasma urea nitrogen/creatinine mass ratio 11 NRG Serum or plasma creatinine measurement w ith calculation of estimated glomerular filtration rate 29 NRG Serum or plasma glucose measurement (mass/volume) 314 mg/dL 70-105 Serum or plasma calcium measurement (mass/volume) 8.6 mg/dL 8.5-10.1 Serum or plasma total bilirubin measurement (mass/volu me) 0.9 mg/dL 0.1-1.0 Serum or plasma alkaline phosphatase kimberli surement (enzymatic activity/volume) 54 U/L 40-136 Serum or plasma aspartate aminotransfera se measurement (enzymatic activity/volume) 19 U/L 5-34 Serum or plasma alanine aminotransferase measurement (enzymatic activity/volume) 13 U/L 0-55 Serum or plasma protein measurement (mass/volume) 5.9 g/dL 6.4-8.2 Serum or plasma albumin measurement (mass/volume) 3.3 g/dL 3.2-4.5 CALCIUM CORRECTED 9.2 mg/dL 8.5-10.1 Blood manual differential performed dete ction - 11/22/18 05:33 Blood monocytes/100 leukocytes 5 % NRG Manual blood segmented neutrophils/100 leukocytes 89 % NRG Manual blood lymphocytes/100 leukocytes 5 % NRG Manual blood basophils/100 leukocytes 1 % NRG Capillary blood glucose measurement by g lucometer (mass/volume) - 11/22/18 11:06 Capillary blood glucose measurement by glucometer (mas s/volume) 338 mg/dL 70-110 Capillary blood glucose measurement by g lucometer (mass/volume) - 11/22/18 16:32 Capillary blood glucose measurement by glucometer (mas s/volume) 271 mg/dL 70-110 Capillary blood glucose measurement by g lucometer (mass/volume) - 11/22/18 20:17 Capillary blood glucose measurement by glucometer (mas s/volume) 341 mg/dL 70-110 Capillary blood glucose measurement by g lucometer (mass/volume) - 11/23/18 05:52 Capillary blood glucose measurement by glucometer (mas s/volume) 175 mg/dL 70-110 Capillary blood glucose measurement by g lucometer (mass/volume) - 11/23/18 11:08 Capillary blood glucose measurement by glucometer (mas s/volume) 221 mg/dL 70-110 Complete urinalysis with reflex to cultu re - 11/25/18 14:55 Urine color determination YELLOW NRG Urine clarity determination CLEAR NR G Urine pH measurement by test strip 5 5-9 Specific gravity of urine by test strip 1.010 1.016-1.022 Urine protein assay by test strip, semi-quantitative NEGATIVE NEGATIVE Urine glucose detection by automated test strip 4+ NEGATIVE Erythrocytes detection in urine sediment by light micr oscopy NEGATIVE NEGATIVE Urine ketones detection by automated test strip NE GATIVE NEGATIVE Urine nitrite detection by test strip NEGATIVE NEGATIVE Urine total bilirubin detection by test strip NEGA TIVE NEGATIVE Urine urobilinogen measurement by automated test strip (mass/volume) NORMAL NORMAL Urine leukocyte esterase detection by dipstick 1+ NEGATIVE Automated urine sediment erythrocyte cou nt by microscopy (number/high power field) NONE NRG Automated urine sediment leukocyte count by microscopy (number/high power field) [HPF] NRG Bacteria detection in urine sediment by light microsco py NEGATIVE NRG Crystals detection in urine sediment by light microsco py NONE NRG Casts detection in urine sediment by light microscopy NONE NRG Mucus detection in urine sediment by light microscopy NEGATIVE NRG Complete urinalysis with reflex to culture NO NRG Complete blood count (CBC) with automate d white blood cell (WBC) differential - 11/25/18 15:10 Blood leukocytes automated count (number/volume) 11.5 10*3/uL 4.3-11.0 Blood erythrocytes automated count (number/volume) 3.73 10*6/uL 4.35-5.85 Venous blood hemoglobin measurement (mass/volume) 10.9 g/dL 13.3-17.7 Blood hematocrit (volume fraction) 34 % 40-54 Automated erythrocyte mean corpuscular volume 92 [ foz_us] 80-99 Automated erythrocyte mean corpuscular h emoglobin (mass per erythrocyte) 29 pg 25-34 Automated erythrocyte mean corpuscular h emoglobin concentration measurement (mass/volume) 32 g/dL 32-36 Automated erythrocyte distribution width ratio 14. 9 % 10.0- 14.5 Automated blood platelet count (count/volume) 205 10*3/uL 130-400 Automated blood platelet mean volume measurement 10.0 [foz_us] 7.4-10.4 Automated blood neutrophils/100 leukocytes 90 % 42-75 Automated blood lymphocytes/100 leukocytes 5 % 12-44 Blood monocytes/100 leukocytes 4 % 0-12 Automated blood eosinophils/100 leukocytes 0 % 0-10 Automated blood basophils/100 leukocytes 1 % 0-10 Blood neutrophils automated count (number/volume) 10.4 10*3 1.8-7.8 Blood lymphocytes automated count (number/volume) 0.6 10*3 1.0-4.0 Blood monocytes automated count (number/volume) 0. 5 10*3 0.0-1.0 Automated eosinophil count 0.0 10*3/uL 0 .0-0.3 Automated blood basophil count (count/volume) 0.1 10*3/uL 0.0-0.1 Comprehensive metabolic panel - 11/25/18 15:10 Serum or plasma sodium measurement (moles/volume) 134 mmol/L 135-145 Serum or plasma potassium measurement (moles/volume) 4.3 mmol/L 3.6-5.0 Serum or plasma chloride measurement (moles/volume) 103 mmol/L 98-107 Carbon dioxide 18 mmol/L 21-32 Serum or plasma anion gap determination (moles/volume) 13 mmol/L 5-14 Serum or plasma urea nitrogen measurement (mass/volume ) 53 mg/dL 7-18 Serum or plasma creatinine measurement (mass/volume) 3.01 mg/dL 0.60-1.30 Serum or plasma urea nitrogen/creatinine mass ratio 18 NRG Serum or plasma creatinine measurement w ith calculation of estimated glomerular filtration rate 20 NRG Serum or plasma glucose measurement (mass/volume) 450 mg/dL 70-105 Serum or plasma calcium measurement (mass/volume) 9.1 mg/dL 8.5-10.1 Serum or plasma total bilirubin measurement (mass/volu me) 1.1 mg/dL 0.1-1.0 Serum or plasma alkaline phosphatase kimberli surement (enzymatic activity/volume) 99 U/L 40-136 Serum or plasma aspartate aminotransfera se measurement (enzymatic activity/volume) 22 U/L 5-34 Serum or plasma alanine aminotransferase measurement (enzymatic activity/volume) 19 U/L 0-55 Serum or plasma protein measurement (mass/volume) 6.6 g/dL 6.4-8.2 Serum or plasma albumin measurement (mass/volume) 3.8 g/dL 3.2-4.5 CALCIUM CORRECTED 9.3 mg/dL 8.5-10.1 Serum or plasma C reactive protein measu rement (mass/volume) - 11/25/18 15:10 Serum or plasma C reactive protein measurement (mass/v olume) 0.47 mg/dL 0.00-0.50 Blood manual differential performed dete ction - 11/25/18 15:10 Blood monocytes/100 leukocytes 2 % NRG Manual blood segmented neutrophils/100 leukocytes 89 % NRG Blood band neutrophils/100 leukocytes 4 % NRG Manual blood lymphocytes/100 leukocytes 2 % NRG Manual eosinophils/100 leukocytes in nose 0 % NRG Manual blood basophils/100 leukocytes 0 % NRG Blood anisocytosis detection by light microscopy S LIGHT NRG Manual blood metamyelocytes/100 leukocytes 3 % NRG Serum or plasma lithium measurement (mol es/volume) - 11/25/18 15:10 BNP level 90.2 pg/mL <100.0 Capillary blood glucose measurement by g lucometer (mass/volume) - 11/25/18 17:38 Capillary blood glucose measurement by glucometer (mas s/volume) 378 mg/dL 70-110 Complete blood count (CBC) with automate d white blood cell (WBC) differential - 12/13/18 09:20 Blood leukocytes automated count (number/volume) 8.9 10*3/uL 4.3-11.0 Blood erythrocytes automated count (number/volume) 4.30 10*6/uL 4.35-5.85 Venous blood hemoglobin measurement (mass/volume) 12.8 g/dL 13.3-17.7 Blood hematocrit (volume fraction) 39 % 40-54 Automated erythrocyte mean corpuscular volume 91 [ foz_us] 80-99 Automated erythrocyte mean corpuscular h emoglobin (mass per erythrocyte) 30 pg 25-34 Automated erythrocyte mean corpuscular h emoglobin concentration measurement (mass/volume) 33 g/dL 32-36 Automated erythrocyte distribution width ratio 15. 4 % 10.0- 14.5 Automated blood platelet count (count/volume) 226 10*3/uL 130-400 Automated blood platelet mean volume measurement 10.1 [foz_us] 7.4-10.4 Automated blood neutrophils/100 leukocytes 78 % 42-75 Automated blood lymphocytes/100 leukocytes 13 % 12-44 Blood monocytes/100 leukocytes 6 % 0-12 Automated blood eosinophils/100 leukocytes 2 % 0-10 Automated blood basophils/100 leukocytes 1 % 0-10 Blood neutrophils automated count (number/volume) 6.9 10*3 1.8-7.8 Blood lymphocytes automated count (number/volume) 1.1 10*3 1.0-4.0 Blood monocytes automated count (number/volume) 0. 6 10*3 0.0-1.0 Automated eosinophil count 0.2 10*3/uL 0 .0-0.3 Automated blood basophil count (count/volume) 0.0 10*3/uL 0.0-0.1 Comprehensive metabolic panel - 12/13/18 09:20 Serum or plasma sodium measurement (moles/volume) 138 mmol/L 135-145 Serum or plasma potassium measurement (moles/volume) 4.0 mmol/L 3.6-5.0 Serum or plasma chloride measurement (moles/volume) 101 mmol/L 98-107 Carbon dioxide 22 mmol/L 21-32 Serum or plasma anion gap determination (moles/volume) 15 mmol/L 5-14 Serum or plasma urea nitrogen measurement (mass/volume ) 44 mg/dL 7-18 Serum or plasma creatinine measurement (mass/volume) 2.61 mg/dL 0.60-1.30 Serum or plasma urea nitrogen/creatinine mass ratio 17 NRG Serum or plasma creatinine measurement w ith calculation of estimated glomerular filtration rate 23 NRG Serum or plasma glucose measurement (mass/volume) 171 mg/dL 70-105 Serum or plasma calcium measurement (mass/volume) 9.0 mg/dL 8.5-10.1 Serum or plasma total bilirubin measurement (mass/volu me) 1.6 mg/dL 0.1-1.0 Serum or plasma alkaline phosphatase [place]ber[place] surement (enzymatic activity/volume) 90 U/L 40-136 Serum or plasma aspartate aminotransfera se measurement (enzymatic activity/volume) 19 U/L 5-34 Serum or plasma alanine aminotransferase measurement (enzymatic activity/volume) 18 U/L 0-55 Serum or plasma protein measurement (mass/volume) 6.9 g/dL 6.4-8.2 Serum or plasma albumin measurement (mass/volume) 4.0 g/dL 3.2-4.5 CALCIUM CORRECTED 9.0 mg/dL 8.5-10.1 Magnesium - 12/13/18 09:20 Magnesium 2.2 mg/dL 1.8-2.4 PT panel in platelet poor plasma by coag ulation assay - 12/13/18 09:20 Prothrombin time (PT) in platelet poor plasma by coagu lation assay 14.6 s 12.2-14.7 INR in platelet poor plasma or blood by coagulation as say 1.1 0.8-1.4 Activated partial thromboplastin time (a PTT) in platelet poor plasma bycoagulation assay - 12/13/18 09:20 Activated partial thromboplastin time (a PTT) in platelet poor plasma bycoagulation assay 28 s 24-35 Serum or plasma troponin i.cardiac measu rement (mass/volume) - 12/13/18 09:20 Serum or plasma troponin i.cardiac measurement (mass/v olume) < ng/mL <0.028 Myoglobin, serum - 12/13/18 09:20 Myoglobin, serum 103.9 ng/mL 10.0-92.0 Serum or plasma lithium measurement (mol es/volume) - 12/13/18 09:20 BNP level 67.0 pg/mL <100.0 Influenza virus A and B antigen detectio n - 12/13/18 09:30 FLU RESULT POSITIVE FOR INFLUENZA B ANT IGEN, NEG FOR A ANTIGEN, BY IA NRG Capillary blood glucose measurement by g lucometer (mass/volume) - 12/13/18 20:55 Capillary blood glucose measurement by glucometer (mas s/volume) 358 mg/dL 70-110 Complete blood count (CBC) with automate d white blood cell (WBC) differential - 12/14/18 05:45 Blood leukocytes automated count (number/volume) 6.0 10*3/uL 4.3-11.0 Blood erythrocytes automated count (number/volume) 3.45 10*6/uL 4.35-5.85 Venous blood hemoglobin measurement (mass/volume) 10.2 g/dL 13.3-17.7 Blood hematocrit (volume fraction) 32 % 40-54 Automated erythrocyte mean corpuscular volume 92 [ foz_us] 80-99 Automated erythrocyte mean corpuscular h emoglobin (mass per erythrocyte) 30 pg 25-34 Automated erythrocyte mean corpuscular h emoglobin concentration measurement (mass/volume) 32 g/dL 32-36 Automated erythrocyte distribution width ratio 14. 9 % 10.0- 14.5 Automated blood platelet count (count/volume) 155 10*3/uL 130-400 Automated blood platelet mean volume measurement 9.4 [foz_us] 7.4-10.4 Automated blood neutrophils/100 leukocytes 76 % 42-75 Automated blood lymphocytes/100 leukocytes 13 % 12-44 Blood monocytes/100 leukocytes 8 % 0-12 Automated blood eosinophils/100 leukocytes 2 % 0-10 Automated blood basophils/100 leukocytes 1 % 0-10 Blood neutrophils automated count (number/volume) 4.6 10*3 1.8-7.8 Blood lymphocytes automated count (number/volume) 0.8 10*3 1.0-4.0 Blood monocytes automated count (number/volume) 0. 5 10*3 0.0-1.0 Automated eosinophil count 0.1 10*3/uL 0 .0-0.3 Automated blood basophil count (count/volume) 0.0 10*3/uL 0.0-0.1 Comprehensive metabolic panel - 12/14/18 05:45 Serum or plasma sodium measurement (moles/volume) 139 mmol/L 135-145 Serum or plasma potassium measurement (moles/volume) 3.4 mmol/L 3.6-5.0 Serum or plasma chloride measurement (moles/volume) 103 mmol/L 98-107 Carbon dioxide 24 mmol/L 21-32 Serum or plasma anion gap determination (moles/volume) 12 mmol/L 5-14 Serum or plasma urea nitrogen measurement (mass/volume ) 45 mg/dL 7-18 Serum or plasma creatinine measurement (mass/volume) 2.74 mg/dL 0.60-1.30 Serum or plasma urea nitrogen/creatinine mass ratio 16 NRG Serum or plasma creatinine measurement w ith calculation of estimated glomerular filtration rate 22 NRG Serum or plasma glucose measurement (mass/volume) 231 mg/dL 70-105 Serum or plasma calcium measurement (mass/volume) 8.3 mg/dL 8.5-10.1 Serum or plasma total bilirubin measurement (mass/volu me) 1.3 mg/dL 0.1-1.0 Serum or plasma alkaline phosphatase kimberli surement (enzymatic activity/volume) 75 U/L 40-136 Serum or plasma aspartate aminotransfera se measurement (enzymatic activity/volume) 10 U/L 5-34 Serum or plasma alanine aminotransferase measurement (enzymatic activity/volume) 11 U/L 0-55 Serum or plasma protein measurement (mass/volume) 5.4 g/dL 6.4-8.2 Serum or plasma albumin measurement (mass/volume) 3.1 g/dL 3.2-4.5 CALCIUM CORRECTED 9.0 mg/dL 8.5-10.1 Lipid 1996 panel - 12/14/18 05:45 Serum or plasma triglyceride measurement (mass/volume) 137 mg/dL <150 Serum or plasma cholesterol measurement (mass/volume) 94 mg/dL < 200 Serum or plasma cholesterol in HDL measurement (mass/v olume) 38 mg/dL 40-60 Cholesterol in LDL [mass/volume] in serum or plasma by direct assay 27 mg/dL 1-129 Serum or plasma cholesterol in VLDL measurement (mass/ volume) 27 mg/dL 5-40 Capillary blood glucose measurement by g lucometer (mass/volume) - 12/14/18 10:53 Capillary blood glucose measurement by glucometer (mas s/volume) 205 mg/dL 70-110 Capillary blood glucose measurement by g lucometer (mass/volume) - 12/14/18 14:35 Capillary blood glucose measurement by glucometer (mas s/volume) 322 mg/dL 70-110 Capillary blood glucose measurement by g lucometer (mass/volume) - 12/14/18 21:35 Capillary blood glucose measurement by glucometer (mas s/volume) 359 mg/dL 70-110 Capillary blood glucose measurement by g lucometer (mass/volume) - 12/15/18 05:27 Capillary blood glucose measurement by glucometer (mas s/volume) 289 mg/dL 70-110 [facility] - 12/15/18 09:05 Blood leukocytes automated count (number/volume) 8.3 10*3/uL 4.3-11.0 Blood erythrocytes automated count (number/volume) 3.51 10*6/uL 4.35-5.85 Venous blood hemoglobin measurement (mass/volume) 10.6 g/dL 13.3-17.7 Blood hematocrit (volume fraction) 32 % 40-54 Automated erythrocyte mean corpuscular volume 92 [ foz_us] 80-99 Automated erythrocyte mean corpuscular h emoglobin (mass per erythrocyte) 30 pg 25-34 Automated erythrocyte mean corpuscular h emoglobin concentration measurement (mass/volume) 33 g/dL 32-36 Automated erythrocyte distribution width ratio 15. 0 % 10.0- 14.5 Automated blood platelet count (count/volume) 175 10*3/uL 130-400 Automated blood platelet mean volume measurement 9.3 [foz_us] 7.4-10.4 Comprehensive metabolic panel - 12/15/18 09:05 Serum or plasma sodium measurement (moles/volume) 137 mmol/L 135-145 Serum or plasma potassium measurement (moles/volume) 3.5 mmol/L 3.6-5.0 Serum or plasma chloride measurement (moles/volume) 104 mmol/L 98-107 Carbon dioxide 21 mmol/L 21-32 Serum or plasma anion gap determination (moles/volume) 12 mmol/L 5-14 Serum or plasma urea nitrogen measurement (mass/volume ) 33 mg/dL 7-18 Serum or plasma creatinine measurement (mass/volume) 2.62 mg/dL 0.60-1.30 Serum or plasma urea nitrogen/creatinine mass ratio 13 NRG Serum or plasma creatinine measurement w ith calculation of estimated glomerular filtration rate 23 NRG Serum or plasma glucose measurement (mass/volume) 353 mg/dL 70-105 Serum or plasma calcium measurement (mass/volume) 8.4 mg/dL 8.5-10.1 Serum or plasma total bilirubin measurement (mass/volu me) 0.9 mg/dL 0.1-1.0 Serum or plasma alkaline phosphatase k[place]berli surement (enzymatic activity/volume) 75 U/L 40-136 Serum or plasma aspartate aminotransfera se measurement (enzymatic activity/volume) 13 U/L 5-34 Serum or plasma alanine aminotransferase measurement (enzymatic activity/volume) 15 U/L 0-55 Serum or plasma protein measurement (mass/volume) 6.4 g/dL 6.4-8.2 Serum or plasma albumin measurement (mass/volume) 3.5 g/dL 3.2-4.5 CALCIUM CORRECTED 8.8 mg/dL 8.5-10.1 Capillary blood glucose measurement by g lucometer (mass/volume) - 12/15/18 10:57 Capillary blood glucose measurement by glucometer (mas s/volume) 424 mg/dL 70-110 Capillary blood glucose measurement by g lucometer (mass/volume) - 12/15/18 15:57 Capillary blood glucose measurement by glucometer (mas s/volume) 263 mg/dL 70-110 Capillary blood glucose measurement by g lucometer (mass/volume) - 12/15/18 20:36 Capillary blood glucose measurement by glucometer (mas s/volume) 295 mg/dL 70-110 Capillary blood glucose measurement by g lucometer (mass/volume) - 12/16/18 05:22 Capillary blood glucose measurement by glucometer (mas s/volume) 224 mg/dL 70-110 Complete blood count (CBC) with automate d white blood cell (WBC) differential - 12/16/18 06:06 Blood leukocytes automated count (number/volume) 9.5 10*3/uL 4.3-11.0 Blood erythrocytes automated count (number/volume) 3.72 10*6/uL 4.35-5.85 Venous blood hemoglobin measurement (mass/volume) 10.8 g/dL 13.3-17.7 Blood hematocrit (volume fraction) 34 % 40-54 Automated erythrocyte mean corpuscular volume 92 [ foz_us] 80-99 Automated erythrocyte mean corpuscular h emoglobin (mass per erythrocyte) 29 pg 25-34 Automated erythrocyte mean corpuscular h emoglobin concentration measurement (mass/volume) 32 g/dL 32-36 Automated erythrocyte distribution width ratio 14. 8 % 10.0- 14.5 Automated blood platelet count (count/volume) 186 10*3/uL 130-400 Automated blood platelet mean volume measurement 9.8 [foz_us] 7.4-10.4 Automated blood neutrophils/100 leukocytes 82 % 42-75 Automated blood lymphocytes/100 leukocytes 8 % 12-44 Blood monocytes/100 leukocytes 8 % 0-12 Automated blood eosinophils/100 leukocytes 2 % 0-10 Automated blood basophils/100 leukocytes 0 % 0-10 Blood neutrophils automated count (number/volume) 7.8 10*3 1.8-7.8 Blood lymphocytes automated count (number/volume) 0.7 10*3 1.0-4.0 Blood monocytes automated count (number/volume) 0. 8 10*3 0.0-1.0 Automated eosinophil count 0.2 10*3/uL 0 .0-0.3 Automated blood basophil count (count/volume) 0.0 10*3/uL 0.0-0.1 Comprehensive metabolic panel - 12/16/18 06:06 Serum or plasma sodium measurement (moles/volume) 139 mmol/L 135-145 Serum or plasma potassium measurement (moles/volume) 3.8 mmol/L 3.6-5.0 Serum or plasma chloride measurement (moles/volume) 104 mmol/L 98-107 Carbon dioxide 21 mmol/L 21-32 Serum or plasma anion gap determination (moles/volume) 14 mmol/L 5-14 Serum or plasma urea nitrogen measurement (mass/volume ) 31 mg/dL 7-18 Serum or plasma creatinine measurement (mass/volume) 2.72 mg/dL 0.60-1.30 Serum or plasma urea nitrogen/creatinine mass ratio 11 NRG Serum or plasma creatinine measurement w ith calculation of estimated glomerular filtration rate 22 NRG Serum or plasma glucose measurement (mass/volume) 222 mg/dL 70-105 Serum or plasma calcium measurement (mass/volume) 8.8 mg/dL 8.5-10.1 Serum or plasma total bilirubin measurement (mass/volu me) 0.8 mg/dL 0.1-1.0 Serum or plasma alkaline phosphatase k[place] surement (enzymatic activity/volume) 85 U/L 40-136 Serum or plasma aspartate aminotransfera se measurement (enzymatic activity/volume) 14 U/L 5-34 Serum or plasma alanine aminotransferase measurement (enzymatic activity/volume) 15 U/L 0-55 Serum or plasma protein measurement (mass/volume) 6.3 g/dL 6.4-8.2 Serum or plasma albumin measurement (mass/volume) 3.6 g/dL 3.2-4.5 CALCIUM CORRECTED 9.1 mg/dL 8.5-10.1 Serum or plasma troponin i.cardiac measu rement (mass/volume) - 12/16/18 06:06 Serum or plasma troponin i.cardiac measurement (mass/v olume) 0.036 ng/mL <0.028 Capillary blood glucose measurement by g lucometer (mass/volume) - 12/16/18 11:41 Capillary blood glucose measurement by glucometer (mas s/volume) 403 mg/dL 70-110 Capillary blood glucose measurement by g lucometer (mass/volume) - 12/16/18 14:52 Capillary blood glucose measurement by glucometer (mas s/volume) 348 mg/dL 70-110 Complete blood count (CBC) with automate d white blood cell (WBC) differential - 12/20/18 08:25 Blood leukocytes automated count (number/volume) 10.5 10*3/uL 4.3-11.0 Blood erythrocytes automated count (number/volume) 3.62 10*6/uL 4.35-5.85 Venous blood hemoglobin measurement (mass/volume) 10.6 g/dL 13.3-17.7 Blood hematocrit (volume fraction) 33 % 40-54 Automated erythrocyte mean corpuscular volume 91 [ foz_us] 80-99 Automated erythrocyte mean corpuscular h emoglobin (mass per erythrocyte) 29 pg 25-34 Automated erythrocyte mean corpuscular h emoglobin concentration measurement (mass/volume) 32 g/dL 32-36 Automated erythrocyte distribution width ratio 14. 5 % 10.0- 14.5 Automated blood platelet count (count/volume) 220 10*3/uL 130-400 Automated blood platelet mean volume measurement 9.1 [foz_us] 7.4-10.4 Automated blood neutrophils/100 leukocytes 76 % 42-75 Automated blood lymphocytes/100 leukocytes 13 % 12-44 Blood monocytes/100 leukocytes 9 % 0-12 Automated blood eosinophils/100 leukocytes 2 % 0-10 Automated blood basophils/100 leukocytes 0 % 0-10 Blood neutrophils automated count (number/volume) 8.0 10*3 1.8-7.8 Blood lymphocytes automated count (number/volume) 1.3 10*3 1.0-4.0 Blood monocytes automated count (number/volume) 0. 9 10*3 0.0-1.0 Automated eosinophil count 0.2 10*3/uL 0 .0-0.3 Automated blood basophil count (count/volume) 0.0 10*3/uL 0.0-0.1 Comprehensive metabolic panel - 12/20/18 08:25 Serum or plasma sodium measurement (moles/volume) 139 mmol/L 135-145 Serum or plasma potassium measurement (moles/volume) 3.9 mmol/L 3.6-5.0 Serum or plasma chloride measurement (moles/volume) 97 mmol/L 98-107 Carbon dioxide 24 mmol/L 21-32 Serum or plasma anion gap determination (moles/volume) 18 mmol/L 5-14 Serum or plasma urea nitrogen measurement (mass/volume ) 49 mg/dL 7-18 Serum or plasma creatinine measurement (mass/volume) 3.07 mg/dL 0.60-1.30 Serum or plasma urea nitrogen/creatinine mass ratio 16 NRG Serum or plasma creatinine measurement w ith calculation of estimated glomerular filtration rate 19 NRG Serum or plasma glucose measurement (mass/volume) 288 mg/dL 70-105 Serum or plasma calcium measurement (mass/volume) 9.7 mg/dL 8.5-10.1 Serum or plasma total bilirubin measurement (mass/volu me) 0.7 mg/dL 0.1-1.0 Serum or plasma alkaline phosphatase k[place] surement (enzymatic activity/volume) 111 U/L 40-136 Serum or plasma aspartate aminotransfera se measurement (enzymatic activity/volume) 17 U/L 5-34 Serum or plasma alanine aminotransferase measurement (enzymatic activity/volume) 27 U/L 0-55 Serum or plasma protein measurement (mass/volume) 6.5 g/dL 6.4-8.2 Serum or plasma albumin measurement (mass/volume) 3.6 g/dL 3.2-4.5 CALCIUM CORRECTED 10.0 mg/dL 8.5-10.1 Complete blood count (CBC) with automate d white blood cell (WBC) differential - 12/26/18 15:35 Blood leukocytes automated count (number/volume) 17.6 10*3/uL 4.3-11.0 Blood erythrocytes automated count (number/volume) 2.64 10*6/uL 4.35-5.85 Venous blood hemoglobin measurement (mass/volume) 7.8 g/dL 13.3-17.7 Blood hematocrit (volume fraction) 24 % 40-54 Automated erythrocyte mean corpuscular volume 92 [ foz_us] 80-99 Automated erythrocyte mean corpuscular h emoglobin (mass per erythrocyte) 30 pg 25-34 Automated erythrocyte mean corpuscular h emoglobin concentration measurement (mass/volume) 32 g/dL 32-36 Automated erythrocyte distribution width ratio 14. 8 % 10.0- 14.5 Automated blood platelet count (count/volume) 279 10*3/uL 130-400 Automated blood platelet mean volume measurement 9.5 [foz_us] 7.4-10.4 Automated blood neutrophils/100 leukocytes 86 % 42-75 Automated blood lymphocytes/100 leukocytes 8 % 12-44 Blood monocytes/100 leukocytes 6 % 0-12 Automated blood eosinophils/100 leukocytes 0 % 0-10 Automated blood basophils/100 leukocytes 0 % 0-10 Blood neutrophils automated count (number/volume) 15.2 10*3 1.8-7.8 Blood lymphocytes automated count (number/volume) 1.4 10*3 1.0-4.0 Blood monocytes automated count (number/volume) 1. 0 10*3 0.0-1.0 Automated eosinophil count 0.1 10*3/uL 0 .0-0.3 Automated blood basophil count (count/volume) 0.0 10*3/uL 0.0-0.1 Comprehensive metabolic panel - 12/26/18 15:35 Serum or plasma sodium measurement (moles/volume) 136 mmol/L 135-145 Serum or plasma potassium measurement (moles/volume) 3.1 mmol/L 3.6-5.0 Serum or plasma chloride measurement (moles/volume) 99 mmol/L 98-107 Carbon dioxide 21 mmol/L 21-32 Serum or plasma anion gap determination (moles/volume) 16 mmol/L 5-14 Serum or plasma urea nitrogen measurement (mass/volume ) 61 mg/dL 7-18 Serum or plasma creatinine measurement (mass/volume) 3.09 mg/dL 0.60-1.30 Serum or plasma urea nitrogen/creatinine mass ratio 20 NRG Serum or plasma creatinine measurement w ith calculation of estimated glomerular filtration rate 19 NRG Serum or plasma glucose measurement (mass/volume) 279 mg/dL 70-105 Serum or plasma calcium measurement (mass/volume) 9.3 mg/dL 8.5-10.1 Serum or plasma total bilirubin measurement (mass/volu me) 0.8 mg/dL 0.1-1.0 Serum or plasma alkaline phosphatase kimberli surement (enzymatic activity/volume) 79 U/L 40-136 Serum or plasma aspartate aminotransfera se measurement (enzymatic activity/volume) 15 U/L 5-34 Serum or plasma alanine aminotransferase measurement (enzymatic activity/volume) 15 U/L 0-55 Serum or plasma protein measurement (mass/volume) 6.7 g/dL 6.4-8.2 Serum or plasma albumin measurement (mass/volume) 3.7 g/dL 3.2-4.5 CALCIUM CORRECTED 9.5 mg/dL 8.5-10.1 Magnesium - 12/26/18 15:35 Magnesium 1.8 mg/dL 1.8-2.4 Lipase - 12/26/18 15:35 Lipase 34 U/L 8-78 Blood manual differential performed dete ction - 12/26/18 15:35 Blood monocytes/100 leukocytes 1 % NRG Manual blood segmented neutrophils/100 leukocytes 87 % NRG Blood band neutrophils/100 leukocytes 3 % NRG Manual blood lymphocytes/100 leukocytes 8 % NRG Manual eosinophils/100 leukocytes in nose 0 % NRG Manual blood basophils/100 leukocytes 0 % NRG Blood polychromasia detection by light microscopy SLIGHT NRG Blood anisocytosis detection by light microscopy S LIGHT NRG Manual blood metamyelocytes/100 leukocytes 1 % NRG Serum or plasma lithium measurement (mol es/volume) - 12/26/18 15:35 BNP level 85.4 pg/mL <100.0 Blood lactic acid measurement (moles/vol ume) - 12/26/18 15:35 Blood lactic acid measurement (moles/volume) 1.82 mmol/L 0.50-2.00 Bacterial blood culture - 12/26/18 15:35 Bacterial blood culture NG NRG Serum or plasma C reactive protein measu rement (mass/volume) - 12/26/18 15:39 Serum or plasma C reactive protein measurement (mass/v olume) 9.12 mg/dL 0.00-0.50 PT panel in platelet poor plasma by coag ulation assay - 12/26/18 15:39 Prothrombin time (PT) in platelet poor plasma by coagu lation assay 12.9 s 12.2-14.7 INR in platelet poor plasma or blood by coagulation as say 0.9 0.8-1.4 Activated partial thromboplastin time (a PTT) in platelet poor plasma bycoagulation assay - 12/26/18 15:39 Activated partial thromboplastin time (a PTT) in platelet poor plasma bycoagulation assay 32 s 24-35 RED CELLS LEUKO REDUCED AS1 - 12/26/18 1 6:15 RED CELLS LEUKO REDUCED AS1 N OT AVAILABLE NRG Blood type T Indirect antibody screen pa carmelo - 12/26/18 16:15 ABO+Rh group OP NRG Transfusion band number [id number] NRG Blood group antibody screen NEGATIVE NR G Bacterial blood culture - 12/26/18 16:15 Bacterial blood culture NG NRG Complete urinalysis with reflex to cultu re - 12/26/18 17:23 Urine color determination YELLOW NRG Urine clarity determination CLEAR NR G Urine pH measurement by test strip 5 5-9 Specific gravity of urine by test strip 1.010 1.016-1.022 Urine protein assay by test strip, semi-quantitative 1+ NEGATIVE Urine glucose detection by automated test strip 1+ NEGATIVE Erythrocytes detection in urine sediment by light micr oscopy NEGATIVE NEGATIVE Urine ketones detection by automated test strip NE GATIVE NEGATIVE Urine nitrite detection by test strip NEGATIVE NEGATIVE Urine total bilirubin detection by test strip NEGA TIVE NEGATIVE Urine urobilinogen measurement by automated test strip (mass/volume) NORMAL NORMAL Urine leukocyte esterase detection by dipstick 1+ NEGATIVE Automated urine sediment erythrocyte cou nt by microscopy (number/high power field) NONE NRG Automated urine sediment leukocyte count by microscopy (number/high power field) [HPF] NRG Bacteria detection in urine sediment by light microsco py TRACE NRG Crystals detection in urine sediment by light microsco py NONE NRG Casts detection in urine sediment by light microscopy PRESENT NRG Mucus detection in urine sediment by light microscopy SMALL NRG Complete urinalysis with reflex to culture NO NRG Hyaline casts detection in urine sediment by light humble roscopy 2-5 NRG Complete blood count (CBC) with automate d white blood cell (WBC) differential - 12/27/18 06:27 Blood leukocytes automated count (number/volume) 16.6 10*3/uL 4.3-11.0 Blood erythrocytes automated count (number/volume) 2.16 10*6/uL 4.35-5.85 Venous blood hemoglobin measurement (mass/volume) 6.4 g/dL 13.3-17.7 Blood hematocrit (volume fraction) 20 % 40-54 Automated erythrocyte mean corpuscular volume 94 [ foz_us] 80-99 Automated erythrocyte mean corpuscular h emoglobin (mass per erythrocyte) 30 pg 25-34 Automated erythrocyte mean corpuscular h emoglobin concentration measurement (mass/volume) 31 g/dL 32-36 Automated erythrocyte distribution width ratio 14. 6 % 10.0- 14.5 Automated blood platelet count (count/volume) 286 10*3/uL 130-400 Automated blood platelet mean volume measurement 9.3 [foz_us] 7.4-10.4 Automated blood neutrophils/100 leukocytes 82 % 42-75 Automated blood lymphocytes/100 leukocytes 10 % 12-44 Blood monocytes/100 leukocytes 7 % 0-12 Automated blood eosinophils/100 leukocytes 1 % 0-10 Automated blood basophils/100 leukocytes 0 % 0-10 Blood neutrophils automated count (number/volume) 13.6 10*3 1.8-7.8 Blood lymphocytes automated count (number/volume) 1.7 10*3 1.0-4.0 Blood monocytes automated count (number/volume) 1. 2 10*3 0.0-1.0 Automated eosinophil count 0.1 10*3/uL 0 .0-0.3 Automated blood basophil count (count/volume) 0.0 10*3/uL 0.0-0.1 Comprehensive metabolic panel - 12/27/18 06:27 Serum or plasma sodium measurement (moles/volume) 139 mmol/L 135-145 Serum or plasma potassium measurement (moles/volume) 3.2 mmol/L 3.6-5.0 Serum or plasma chloride measurement (moles/volume) 107 mmol/L 98-107 Carbon dioxide 21 mmol/L 21-32 Serum or plasma anion gap determination (moles/volume) 11 mmol/L 5-14 Serum or plasma urea nitrogen measurement (mass/volume ) 47 mg/dL 7-18 Serum or plasma creatinine measurement (mass/volume) 2.83 mg/dL 0.60-1.30 Serum or plasma urea nitrogen/creatinine mass ratio 17 NRG Serum or plasma creatinine measurement w ith calculation of estimated glomerular filtration rate 21 NRG Serum or plasma glucose measurement (mass/volume) 103 mg/dL 70-105 Serum or plasma calcium measurement (mass/volume) 8.5 mg/dL 8.5-10.1 Serum or plasma total bilirubin measurement (mass/volu me) 1.3 mg/dL 0.1-1.0 Serum or plasma alkaline phosphatase kimberli surement (enzymatic activity/volume) 57 U/L 40-136 Serum or plasma aspartate aminotransfera se measurement (enzymatic activity/volume) 15 U/L 5-34 Serum or plasma alanine aminotransferase measurement (enzymatic activity/volume) 12 U/L 0-55 Serum or plasma protein measurement (mass/volume) 5.8 g/dL 6.4-8.2 Serum or plasma albumin measurement (mass/volume) 3.2 g/dL 3.2-4.5 CALCIUM CORRECTED 9.1 mg/dL 8.5-10.1 Capillary blood glucose measurement by g lucometer (mass/volume) - 12/27/18 11:40 Capillary blood glucose measurement by glucometer (mas s/volume) 120 mg/dL 70-110 Capillary blood glucose measurement by g lucometer (mass/volume) - 12/27/18 16:18 Capillary blood glucose measurement by glucometer (mas s/volume) 128 mg/dL 70-110 Whole blood hemoglobin and hematocrit pa carmelo - 12/27/18 17:56 Venous blood hemoglobin measurement (mass/volume) 9.0 g/dL 13.3-17.7 Blood hematocrit (volume fraction) 28 % 40-54 Capillary blood glucose measurement by g lucometer (mass/volume) - 12/27/18 21:30 Capillary blood glucose measurement by glucometer (mas s/volume) 271 mg/dL 70-110 Capillary blood glucose measurement by g lucometer (mass/volume) - 12/28/18 05:52 Capillary blood glucose measurement by glucometer (mas s/volume) 196 mg/dL 70-110 Complete blood count (CBC) with automate d white blood cell (WBC) differential - 12/28/18 06:30 Blood leukocytes automated count (number/volume) 13.6 10*3/uL 4.3-11.0 Blood erythrocytes automated count (number/volume) 2.95 10*6/uL 4.35-5.85 Venous blood hemoglobin measurement (mass/volume) 8.9 g/dL 13.3-17.7 Blood hematocrit (volume fraction) 28 % 40-54 Automated erythrocyte mean corpuscular volume 94 [ foz_us] 80-99 Automated erythrocyte mean corpuscular h emoglobin (mass per erythrocyte) 30 pg 25-34 Automated erythrocyte mean corpuscular h emoglobin concentration measurement (mass/volume) 32 g/dL 32-36 Automated erythrocyte distribution width ratio 15. 2 % 10.0- 14.5 Automated blood platelet count (count/volume) 241 10*3/uL 130-400 Automated blood platelet mean volume measurement 9.3 [foz_us] 7.4-10.4 Automated blood neutrophils/100 leukocytes 86 % 42-75 Automated blood lymphocytes/100 leukocytes 8 % 12-44 Blood monocytes/100 leukocytes 6 % 0-12 Automated blood eosinophils/100 leukocytes 0 % 0-10 Automated blood basophils/100 leukocytes 0 % 0-10 Blood neutrophils automated count (number/volume) 11.7 10*3 1.8-7.8 Blood lymphocytes automated count (number/volume) 1.0 10*3 1.0-4.0 Blood monocytes automated count (number/volume) 0. 9 10*3 0.0-1.0 Automated eosinophil count 0.1 10*3/uL 0 .0-0.3 Automated blood basophil count (count/volume) 0.0 10*3/uL 0.0-0.1 Comprehensive metabolic panel - 12/28/18 06:30 Serum or plasma sodium measurement (moles/volume) 137 mmol/L 135-145 Serum or plasma potassium measurement (moles/volume) 4.4 mmol/L 3.6-5.0 Serum or plasma chloride measurement (moles/volume) 109 mmol/L 98-107 Carbon dioxide 20 mmol/L 21-32 Serum or plasma anion gap determination (moles/volume) 8 mmol/L 5-14 Serum or plasma urea nitrogen measurement (mass/volume ) 35 mg/dL 7-18 Serum or plasma creatinine measurement (mass/volume) 2.57 mg/dL 0.60-1.30 Serum or plasma urea nitrogen/creatinine mass ratio 14 NRG Serum or plasma creatinine measurement w ith calculation of estimated glomerular filtration rate 24 NRG Serum or plasma glucose measurement (mass/volume) 195 mg/dL 70-105 Serum or plasma calcium measurement (mass/volume) 8.5 mg/dL 8.5-10.1 Serum or plasma total bilirubin measurement (mass/volu me) 0.9 mg/dL 0.1-1.0 Serum or plasma alkaline phosphatase kimberli surement (enzymatic activity/volume) 51 U/L 40-136 Serum or plasma aspartate aminotransfera se measurement (enzymatic activity/volume) 16 U/L 5-34 Serum or plasma alanine aminotransferase measurement (enzymatic activity/volume) 16 U/L 0-55 Serum or plasma protein measurement (mass/volume) 5.4 g/dL 6.4-8.2 Serum or plasma albumin measurement (mass/volume) 3.0 g/dL 3.2-4.5 CALCIUM CORRECTED 9.3 mg/dL 8.5-10.1 Capillary blood glucose measurement by g lucometer (mass/volume) - 12/28/18 11:45 Capillary blood glucose measurement by glucometer (mas s/volume) 272 mg/dL 70-110 Capillary blood glucose measurement by g lucometer (mass/volume) - 12/28/18 16:10 Capillary blood glucose measurement by glucometer (mas s/volume) 225 mg/dL 70-110 Capillary blood glucose measurement by g lucometer (mass/volume) - 12/28/18 20:01 Capillary blood glucose measurement by glucometer (mas s/volume) 300 mg/dL 70-110 Capillary blood glucose measurement by g lucometer (mass/volume) - 12/29/18 05:12 Capillary blood glucose measurement by glucometer (mas s/volume) 275 mg/dL 70-110 Complete blood count (CBC) with automate d white blood cell (WBC) differential - 12/29/18 08:49 Blood leukocytes automated count (number/volume) 12.1 10*3/uL 4.3-11.0 Blood erythrocytes automated count (number/volume) 3.09 10*6/uL 4.35-5.85 Venous blood hemoglobin measurement (mass/volume) 9.3 g/dL 13.3-17.7 Blood hematocrit (volume fraction) 29 % 40-54 Automated erythrocyte mean corpuscular volume 94 [ foz_us] 80-99 Automated erythrocyte mean corpuscular h emoglobin (mass per erythrocyte) 30 pg 25-34 Automated erythrocyte mean corpuscular h emoglobin concentration measurement (mass/volume) 32 g/dL 32-36 Automated erythrocyte distribution width ratio 15. 0 % 10.0- 14.5 Automated blood platelet count (count/volume) 264 10*3/uL 130-400 Automated blood platelet mean volume measurement 9.5 [foz_us] 7.4-10.4 Automated blood neutrophils/100 leukocytes 81 % 42-75 Automated blood lymphocytes/100 leukocytes 11 % 12-44 Blood monocytes/100 leukocytes 6 % 0-12 Automated blood eosinophils/100 leukocytes 2 % 0-10 Automated blood basophils/100 leukocytes 0 % 0-10 Blood neutrophils automated count (number/volume) 9.8 10*3 1.8-7.8 Blood lymphocytes automated count (number/volume) 1.3 10*3 1.0-4.0 Blood monocytes automated count (number/volume) 0. 7 10*3 0.0-1.0 Automated eosinophil count 0.2 10*3/uL 0 .0-0.3 Automated blood basophil count (count/volume) 0.0 10*3/uL 0.0-0.1 Capillary blood glucose measurement by g lucometer (mass/volume) - 12/29/18 10:53 Capillary blood glucose measurement by glucometer (mas s/volume) 320 mg/dL 70-110 Complete blood count (CBC) with automate d white blood cell (WBC) differential - 01/05/19 07:55 Blood leukocytes automated count (number/volume) 27.4 10*3/uL 4.3-11.0 Blood erythrocytes automated count (number/volume) 3.84 10*6/uL 4.35-5.85 Venous blood hemoglobin measurement (mass/volume) 11.4 g/dL 13.3-17.7 Blood hematocrit (volume fraction) 35 % 40-54 Automated erythrocyte mean corpuscular volume 91 [ foz_us] 80-99 Automated erythrocyte mean corpuscular h emoglobin (mass per erythrocyte) 30 pg 25-34 Automated erythrocyte mean corpuscular h emoglobin concentration measurement (mass/volume) 33 g/dL 32-36 Automated erythrocyte distribution width ratio 14. 3 % 10.0- 14.5 Automated blood platelet count (count/volume) 282 10*3/uL 130-400 Automated blood platelet mean volume measurement 9.5 [foz_us] 7.4-10.4 Automated blood neutrophils/100 leukocytes 86 % 42-75 Automated blood lymphocytes/100 leukocytes 8 % 12-44 Blood monocytes/100 leukocytes 6 % 0-12 Automated blood eosinophils/100 leukocytes 0 % 0-10 Automated blood basophils/100 leukocytes 0 % 0-10 Blood neutrophils automated count (number/volume) 23.7 10*3 1.8-7.8 Blood lymphocytes automated count (number/volume) 2.1 10*3 1.0-4.0 Blood monocytes automated count (number/volume) 1. 6 10*3 0.0-1.0 Automated eosinophil count 0.0 10*3/uL 0 .0-0.3 Automated blood basophil count (count/volume) 0.1 10*3/uL 0.0-0.1 Comprehensive metabolic panel - 01/05/19 07:55 Serum or plasma sodium measurement (moles/volume) 131 mmol/L 135-145 Serum or plasma potassium measurement (moles/volume) 3.6 mmol/L 3.6-5.0 Serum or plasma chloride measurement (moles/volume) 95 mmol/L 98-107 Carbon dioxide 20 mmol/L 21-32 Serum or plasma anion gap determination (moles/volume) 16 mmol/L 5-14 Serum or plasma urea nitrogen measurement (mass/volume ) 44 mg/dL 7-18 Serum or plasma creatinine measurement (mass/volume) 2.98 mg/dL 0.60-1.30 Serum or plasma urea nitrogen/creatinine mass ratio 15 NRG Serum or plasma creatinine measurement w ith calculation of estimated glomerular filtration rate 20 NRG Serum or plasma glucose measurement (mass/volume) 380 mg/dL 70-105 Serum or plasma calcium measurement (mass/volume) 9.0 mg/dL 8.5-10.1 Serum or plasma total bilirubin measurement (mass/volu me) 1.0 mg/dL 0.1-1.0 Serum or plasma alkaline phosphatase kimberli surement (enzymatic activity/volume) 58 U/L 40-136 Serum or plasma aspartate aminotransfera se measurement (enzymatic activity/volume) 12 U/L 5-34 Serum or plasma alanine aminotransferase measurement (enzymatic activity/volume) 17 U/L 0-55 Serum or plasma protein measurement (mass/volume) 6.4 g/dL 6.4-8.2 Serum or plasma albumin measurement (mass/volume) 3.3 g/dL 3.2-4.5 CALCIUM CORRECTED 9.6 mg/dL 8.5-10.1 Blood manual differential performed dete ction - 01/05/19 07:55 Blood monocytes/100 leukocytes 6 % NRG Manual blood segmented neutrophils/100 leukocytes 81 % NRG Blood band neutrophils/100 leukocytes 7 % NRG Manual blood lymphocytes/100 leukocytes 6 % NRG Manual eosinophils/100 leukocytes in nose 0 % NRG Manual blood basophils/100 leukocytes 0 % NRG Blood erythrocyte morphology finding identification NORMAL NRG Serum or plasma lithium measurement (mol es/volume) - 01/05/19 07:55 BNP level 239.3 pg/mL <100.0 Serum or plasma troponin i.cardiac measu rement (mass/volume) - 01/05/19 07:55 Serum or plasma troponin i.cardiac measurement (mass/v olume) 0.325 ng/mL <0.028 Bacterial blood culture - 01/05/19 07:55 Bacterial blood culture NG NRG PT panel in platelet poor plasma by coag ulation assay - 01/05/19 08:17 Prothrombin time (PT) in platelet poor plasma by coagu lation assay 14.5 s 12.2-14.7 INR in platelet poor plasma or blood by coagulation as say 1.1 0.8-1.4 Activated partial thromboplastin time (a PTT) in platelet poor plasma bycoagulation assay - 01/05/19 08:17 Activated partial thromboplastin time (a PTT) in platelet poor plasma bycoagulation assay 36 s 24-35 Blood lactic acid measurement (moles/vol ume) - 01/05/19 08:17 Blood lactic acid measurement (moles/volume) 3.03 mmol/L 0.50-2.00 Bacterial blood culture - 01/05/19 08:17 Bacterial blood culture NG NRG Serum or plasma lactate measurement (mol es/volume) - 01/05/19 10:50 Serum or plasma lactate measurement (moles/volume) 2.25 mmol/L 0.50-2.00 Complete urinalysis with reflex to cultu re - 01/05/19 11:53 Urine color determination YELLOW NRG Urine clarity determination SLIGHTLY CLOUDY NRG Urine pH measurement by test strip 5 5-9 Specific gravity of urine by test strip 1.020 1.016-1.022 Urine protein assay by test strip, semi-quantitative 2+ NEGATIVE Urine glucose detection by automated test strip 3+ NEGATIVE Erythrocytes detection in urine sediment by light micr oscopy NEGATIVE NEGATIVE Urine ketones detection by automated test strip 1+ NEGATIVE Urine nitrite detection by test strip NEGATIVE NEGATIVE Urine total bilirubin detection by test strip NEGA TIVE NEGATIVE Urine urobilinogen measurement by automated test strip (mass/volume) NORMAL NORMAL Urine leukocyte esterase detection by dipstick NEG ATIVE NEGATIVE Automated urine sediment erythrocyte cou nt by microscopy (number/high power field) NONE NRG Automated urine sediment leukocyte count by microscopy (number/high power field) NONE NRG Bacteria detection in urine sediment by light microsco py NEGATIVE NRG Crystals detection in urine sediment by light microsco py PRESENT NRG Casts detection in urine sediment by light microscopy PRESENT NRG Mucus detection in urine sediment by light microscopy SMALL NRG Complete urinalysis with reflex to culture NO NRG Amorphous sediment detection in urine sediment by ligh t microscopy FEW HAYLEE URATES NRG Renal epithelial cells detection in urin e sediment by light microscopy RARE NRG Granular casts detection in urine sediment by light mi croscopy RARE NRG Bacterial urine culture - 01/05/19 11:53 Bacterial urine culture NG NRG Capillary blood glucose measurement by g lucometer (mass/volume) - 01/05/19 13:58 Capillary blood glucose measurement by glucometer (mas s/volume) 364 mg/dL 70-110 Complete blood count (CBC) with automate d white blood cell (WBC) differential - 02/21/19 12:09 Blood leukocytes automated count (number/volume) 10.1 10*3/uL 4.3-11.0 Blood erythrocytes automated count (number/volume) 4.06 10*6/uL 4.35-5.85 Venous blood hemoglobin measurement (mass/volume) 11.2 g/dL 13.3-17.7 Blood hematocrit (volume fraction) 38 % 40-54 Automated erythrocyte mean corpuscular volume 93 [ foz_us] 80-99 Automated erythrocyte mean corpuscular h emoglobin (mass per erythrocyte) 28 pg 25-34 Automated erythrocyte mean corpuscular h emoglobin concentration measurement (mass/volume) 30 g/dL 32-36 Automated erythrocyte distribution width ratio 18. 5 % 10.0- 14.5 Automated blood platelet count (count/volume) 218 10*3/uL 130-400 Automated blood platelet mean volume measurement 9.3 [foz_us] 7.4-10.4 Automated blood neutrophils/100 leukocytes 61 % 42-75 Automated blood lymphocytes/100 leukocytes 28 % 12-44 Blood monocytes/100 leukocytes 9 % 0-12 Automated blood eosinophils/100 leukocytes 2 % 0-10 Automated blood basophils/100 leukocytes 0 % 0-10 Blood neutrophils automated count (number/volume) 6.2 10*3 1.8-7.8 Blood lymphocytes automated count (number/volume) 2.8 10*3 1.0-4.0 Blood monocytes automated count (number/volume) 0. 9 10*3 0.0-1.0 Automated eosinophil count 0.2 10*3/uL 0 .0-0.3 Automated blood basophil count (count/volume) 0.0 10*3/uL 0.0-0.1 Blood blood smear finding identification by light micr oscopy YES NRG PT panel in platelet poor plasma by coag ulation assay - 02/21/19 12:09 Prothrombin time (PT) in platelet poor plasma by coagu lation assay 13.3 s 12.2-14.7 INR in platelet poor plasma or blood by coagulation as say 1.0 0.8-1.4 Activated partial thromboplastin time (a PTT) in platelet poor plasma bycoagulation assay - 02/21/19 12:09 Activated partial thromboplastin time (a PTT) in platelet poor plasma bycoagulation assay 27 s 24-35 Comprehensive metabolic panel - 02/21/19 12:09 Serum or plasma sodium measurement (moles/volume) 140 mmol/L 135-145 Serum or plasma potassium measurement (moles/volume) 4.7 mmol/L 3.6-5.0 Serum or plasma chloride measurement (moles/volume) 111 mmol/L 98-107 Carbon dioxide 18 mmol/L 21-32 Serum or plasma anion gap determination (moles/volume) 11 mmol/L 5-14 Serum or plasma urea nitrogen measurement (mass/volume ) 35 mg/dL 7-18 Serum or plasma creatinine measurement (mass/volume) 2.69 mg/dL 0.60-1.30 Serum or plasma urea nitrogen/creatinine mass ratio 13 NRG Serum or plasma creatinine measurement w ith calculation of estimated glomerular filtration rate 23 NRG Serum or plasma glucose measurement (mass/volume) 155 mg/dL 70-105 Serum or plasma calcium measurement (mass/volume) 9.5 mg/dL 8.5-10.1 Serum or plasma total bilirubin measurement (mass/volu me) 0.4 mg/dL 0.1-1.0 Serum or plasma alkaline phosphatase kimberli surement (enzymatic activity/volume) 136 U/L 40-136 Serum or plasma aspartate aminotransfera se measurement (enzymatic activity/volume) 16 U/L 5-34 Serum or plasma alanine aminotransferase measurement (enzymatic activity/volume) 25 U/L 0-55 Serum or plasma protein measurement (mass/volume) 7.1 g/dL 6.4-8.2 Serum or plasma albumin measurement (mass/volume) 3.8 g/dL 3.2-4.5 CALCIUM CORRECTED 9.7 mg/dL 8.5-10.1 Magnesium - 02/21/19 12:09 Magnesium 1.6 mg/dL 1.8-2.4 Serum or plasma troponin i.cardiac measu rement (mass/volume) - 02/21/19 12:09 Serum or plasma troponin i.cardiac measurement (mass/v olume) < ng/mL <0.028 Myoglobin, serum - 02/21/19 12:09 Myoglobin, serum 84.5 ng/mL 10.0-92.0 Serum or plasma lithium measurement (mol es/volume) - 02/21/19 12:09 BNP level 414.7 pg/mL <100.0 CBC - 04/19/19 18:24 WHITE BLOOD CELL COUNT 8.4 Thousand/uL 3 .8-10.8 RED BLOOD CELL COUNT 3.91 Million/uL 4.2 0-5.80 HEMOGLOBIN 10.7 g/dL 13.2-17.1 HEMATOCRIT 35.0 % 38.5-50.0 MCV 89.5 fL 80.0-100.0 MCH 27.4 pg 27.0-33.0 MCHC 30.6 g/dL 32.0-36.0 RDW 14.7 % 11.0-15.0 PLATELET COUNT 222 Thousand/uL 140-400 MPV 9.8 fL 7.5-12.5 DIFFERENTIAL, MANUAL - 04/19/19 18:24 ABSOLUTE NEUTROPHILS 5956 cells/uL 1500- 7800 ABSOLUTE MONOCYTES 487 cells/uL 200-950 ABSOLUTE EOSINOPHILS 0 cells/uL 15-500 ABSOLUTE BASOPHILS 0 cells/uL 0-200 NEUTROPHILS 70.9 % NRG LYMPHOCYTES 22.3 % NRG MONOCYTES 5.8 % NRG EOSINOPHILS 0 % NRG BASOPHILS 0 % NRG ABSOLUTE BAND NEUTROPHILS 84 cells/uL 0- 750 ABSOLUTE LYMPHOCYTES 1873 cells/uL 850-3 900 BAND NEUTROPHILS 1.0 % NRG NOTE NRG BNP - 04/19/19 18:24 B TYPE NATRIURETIC PEPTIDE (BNP) 302 pg/mL <100 Complete blood count (CBC) with automate d white blood cell (WBC) differential - 04/24/19 13:19 Blood leukocytes automated count (number/volume) 12.4 10*3/uL 4.3-11.0 Blood erythrocytes automated count (number/volume) 4.45 10*6/uL 4.35-5.85 Venous blood hemoglobin measurement (mass/volume) 12.0 g/dL 13.3-17.7 Blood hematocrit (volume fraction) 38 % 40-54 Automated erythrocyte mean corpuscular volume 86 [ foz_us] 80-99 Automated erythrocyte mean corpuscular h emoglobin (mass per erythrocyte) 27 pg 25-34 Automated erythrocyte mean corpuscular h emoglobin concentration measurement (mass/volume) 31 g/dL 32-36 Automated erythrocyte distribution width ratio 16. 3 % 10.0- 14.5 Automated blood platelet count (count/volume) 249 10*3/uL 130-400 Automated blood platelet mean volume measurement 8.9 [foz_us] 7.4-10.4 Automated blood neutrophils/100 leukocytes 82 % 42-75 Automated blood lymphocytes/100 leukocytes 11 % 12-44 Blood monocytes/100 leukocytes 6 % 0-12 Automated blood eosinophils/100 leukocytes 1 % 0-10 Automated blood basophils/100 leukocytes 0 % 0-10 Blood neutrophils automated count (number/volume) 10.2 10*3 1.8-7.8 Blood lymphocytes automated count (number/volume) 1.4 10*3 1.0-4.0 Blood monocytes automated count (number/volume) 0. 7 10*3 0.0-1.0 Automated eosinophil count 0.1 10*3/uL 0 .0-0.3 Automated blood basophil count (count/volume) 0.0 10*3/uL 0.0-0.1 Comprehensive metabolic panel - 04/24/19 13:19 Serum or plasma sodium measurement (moles/volume) 136 mmol/L 135-145 Serum or plasma potassium measurement (moles/volume) 4.2 mmol/L 3.6-5.0 Serum or plasma chloride measurement (moles/volume) 108 mmol/L 98-107 Carbon dioxide 14 mmol/L 21-32 Serum or plasma anion gap determination (moles/volume) 14 mmol/L 5-14 Serum or plasma urea nitrogen measurement (mass/volume ) 44 mg/dL 7-18 Serum or plasma creatinine measurement (mass/volume) 2.72 mg/dL 0.60-1.30 Serum or plasma urea nitrogen/creatinine mass ratio 16 NRG Serum or plasma creatinine measurement w ith calculation of estimated glomerular filtration rate 22 NRG Serum or plasma glucose measurement (mass/volume) 195 mg/dL 70-105 Serum or plasma calcium measurement (mass/volume) 9.8 mg/dL 8.5-10.1 Serum or plasma total bilirubin measurement (mass/volu me) 0.9 mg/dL 0.1-1.0 Serum or plasma alkaline phosphatase kimberli surement (enzymatic activity/volume) 90 U/L 40-136 Serum or plasma aspartate aminotransfera se measurement (enzymatic activity/volume) 14 U/L 5-34 Serum or plasma alanine aminotransferase measurement (enzymatic activity/volume) 14 U/L 0-55 Serum or plasma protein measurement (mass/volume) 7.4 g/dL 6.4-8.2 Serum or plasma albumin measurement (mass/volume) 3.7 g/dL 3.2-4.5 CALCIUM CORRECTED 10.0 mg/dL 8.5-10.1 Magnesium - 04/24/19 13:19 Magnesium 1.4 mg/dL 1.8-2.4 Serum or plasma troponin i.cardiac measu rement (mass/volume) - 04/24/19 13:19 Serum or plasma troponin i.cardiac measurement (mass/v olume) 0.037 ng/mL <0.028 Myoglobin, serum - 04/24/19 13:19 Myoglobin, serum 130.0 ng/mL 10.0-92.0 Lipase - 04/24/19 13:19 Lipase 38 U/L 8-78 Serum or plasma lithium measurement (mol es/volume) - 04/24/19 13:19 BNP PT 267.3 pg/mL <100.0 PT panel in platelet poor plasma by coag ulation assay - 04/24/19 13:19 Prothrombin time (PT) in platelet poor plasma by coagu lation assay 15.0 s 12.2-14.7 INR in platelet poor plasma or blood by coagulation as say 1.1 0.8-1.4 Activated partial thromboplastin time (a PTT) in platelet poor plasma bycoagulation assay - 04/24/19 13:19 Activated partial thromboplastin time (a PTT) in platelet poor plasma bycoagulation assay 32 s 24-35 Complete urinalysis with reflex to cultu re - 04/24/19 13:54 Urine color determination YELLOW NRG Urine clarity determination CLEAR NR G Urine pH measurement by test strip 5 5-9 Specific gravity of urine by test strip 1.010 1.016-1.022 Urine protein assay by test strip, semi-quantitative 2+ NEGATIVE Urine glucose detection by automated test strip NE GATIVE NEGATIVE Erythrocytes detection in urine sediment by light micr oscopy NEGATIVE NEGATIVE Urine ketones detection by automated test strip NE GATIVE NEGATIVE Urine nitrite detection by test strip NEGATIVE NEGATIVE Urine total bilirubin detection by test strip NEGA TIVE NEGATIVE Urine urobilinogen measurement by automated test strip (mass/volume) NORMAL NORMAL Urine leukocyte esterase detection by dipstick NEG ATIVE NEGATIVE Automated urine sediment erythrocyte cou nt by microscopy (number/high power field) NONE NRG Automated urine sediment leukocyte count by microscopy (number/high power field) RARE NRG Bacteria detection in urine sediment by light microsco py TRACE NRG Squamous epithelial cells detection in u rine sediment by light microscopy RARE NRG Crystals detection in urine sediment by light microsco py NONE NRG Casts detection in urine sediment by light microscopy NONE NRG Mucus detection in urine sediment by light microscopy NEGATIVE NRG Complete urinalysis with reflex to culture NO NRG Complete blood count (CBC) with automate d white blood cell (WBC) differential - 04/25/19 06:19 Blood leukocytes automated count (number/volume) 11.0 10*3/uL 4.3-11.0 Blood erythrocytes automated count (number/volume) 3.92 10*6/uL 4.35-5.85 Venous blood hemoglobin measurement (mass/volume) 10.8 g/dL 13.3-17.7 Blood hematocrit (volume fraction) 34 % 40-54 Automated erythrocyte mean corpuscular volume 86 [ foz_us] 80-99 Automated erythrocyte mean corpuscular h emoglobin (mass per erythrocyte) 28 pg 25-34 Automated erythrocyte mean corpuscular h emoglobin concentration measurement (mass/volume) 32 g/dL 32-36 Automated erythrocyte distribution width ratio 15. 4 % 10.0- 14.5 Automated blood platelet count (count/volume) 207 10*3/uL 130-400 Automated blood platelet mean volume measurement 10.0 [foz_us] 7.4-10.4 Automated blood neutrophils/100 leukocytes 72 % 42-75 Automated blood lymphocytes/100 leukocytes 18 % 12-44 Blood monocytes/100 leukocytes 9 % 0-12 Automated blood eosinophils/100 leukocytes 1 % 0-10 Automated blood basophils/100 leukocytes 0 % 0-10 Blood neutrophils automated count (number/volume) 7.9 10*3 1.8-7.8 Blood lymphocytes automated count (number/volume) 2.0 10*3 1.0-4.0 Blood monocytes automated count (number/volume) 1. 0 10*3 0.0-1.0 Automated eosinophil count 0.1 10*3/uL 0 .0-0.3 Automated blood basophil count (count/volume) 0.0 10*3/uL 0.0-0.1 Comprehensive metabolic panel - 04/25/19 06:19 Serum or plasma sodium measurement (moles/volume) 133 mmol/L 135-145 Serum or plasma potassium measurement (moles/volume) 3.8 mmol/L 3.6-5.0 Serum or plasma chloride measurement (moles/volume) 106 mmol/L 98-107 Carbon dioxide 15 mmol/L 21-32 Serum or plasma anion gap determination (moles/volume) 12 mmol/L 5-14 Serum or plasma urea nitrogen measurement (mass/volume ) 38 mg/dL 7-18 Serum or plasma creatinine measurement (mass/volume) 2.57 mg/dL 0.60-1.30 Serum or plasma urea nitrogen/creatinine mass ratio 15 NRG Serum or plasma creatinine measurement w ith calculation of estimated glomerular filtration rate 24 NRG Serum or plasma glucose measurement (mass/volume) 364 mg/dL 70-105 Serum or plasma calcium measurement (mass/volume) 8.9 mg/dL 8.5-10.1 Serum or plasma total bilirubin measurement (mass/volu me) 0.5 mg/dL 0.1-1.0 Serum or plasma alkaline phosphatase kimberli surement (enzymatic activity/volume) 106 U/L 40-136 Serum or plasma aspartate aminotransfera se measurement (enzymatic activity/volume) 8 U/L 5-34 Serum or plasma alanine aminotransferase measurement (enzymatic activity/volume) 10 U/L 0-55 Serum or plasma protein measurement (mass/volume) 6.1 g/dL 6.4-8.2 Serum or plasma albumin measurement (mass/volume) 3.2 g/dL 3.2-4.5 CALCIUM CORRECTED 9.5 mg/dL 8.5-10.1 Magnesium - 04/25/19 06:19 Magnesium 1.2 mg/dL 1.8-2.4 Lipid 1996 panel - 04/25/19 06:19 Serum or plasma triglyceride measurement (mass/volume) 90 mg/dL <150 Serum or plasma cholesterol measurement (mass/volume) 89 mg/dL < 200 Serum or plasma cholesterol in HDL measurement (mass/v olume) 50 mg/dL 40-60 Cholesterol in LDL [mass/volume] in serum or plasma by direct assay 22 mg/dL 1-129 Serum or plasma cholesterol in VLDL measurement (mass/ volume) 18 mg/dL 5-40 Capillary blood glucose measurement by g lucometer (mass/volume) - 04/25/19 12:25 Capillary blood glucose measurement by glucometer (mas s/volume) 429 mg/dL 70-110 Capillary blood glucose measurement by g lucometer (mass/volume) - 04/25/19 15:48 Capillary blood glucose measurement by glucometer (mas s/volume) 260 mg/dL 70-110 Capillary blood glucose measurement by g lucometer (mass/volume) - 04/25/19 20:39 Capillary blood glucose measurement by glucometer (mas s/volume) 267 mg/dL 70-110 Capillary blood glucose measurement by g lucometer (mass/volume) - 04/26/19 05:49 Capillary blood glucose measurement by glucometer (mas s/volume) 278 mg/dL 70-110 Capillary blood glucose measurement by g lucometer (mass/volume) - 04/26/19 11:38 Capillary blood glucose measurement by glucometer (mas s/volume) 249 mg/dL 70-110 Capillary blood glucose measurement by g lucometer (mass/volume) - 04/26/19 16:05 Capillary blood glucose measurement by glucometer (mas s/volume) 372 mg/dL 70-110 Capillary blood glucose measurement by g lucometer (mass/volume) - 04/26/19 20:46 Capillary blood glucose measurement by glucometer (mas s/volume) 287 mg/dL 70-110 Complete blood count (CBC) with automate d white blood cell (WBC) differential - 04/27/19 05:45 Blood leukocytes automated count (number/volume) 9.0 10*3/uL 4.3-11.0 Blood erythrocytes automated count (number/volume) 3.72 10*6/uL 4.35-5.85 Venous blood hemoglobin measurement (mass/volume) 10.2 g/dL 13.3-17.7 Blood hematocrit (volume fraction) 33 % 40-54 Automated erythrocyte mean corpuscular volume 88 [ foz_us] 80-99 Automated erythrocyte mean corpuscular h emoglobin (mass per erythrocyte) 27 pg 25-34 Automated erythrocyte mean corpuscular h emoglobin concentration measurement (mass/volume) 31 g/dL 32-36 Automated erythrocyte distribution width ratio 15. 4 % 10.0- 14.5 Automated blood platelet count (count/volume) 204 10*3/uL 130-400 Automated blood platelet mean volume measurement 10.1 [foz_us] 7.4-10.4 Automated blood neutrophils/100 leukocytes 76 % 42-75 Automated blood lymphocytes/100 leukocytes 16 % 12-44 Blood monocytes/100 leukocytes 7 % 0-12 Automated blood eosinophils/100 leukocytes 1 % 0-10 Automated blood basophils/100 leukocytes 0 % 0-10 Blood neutrophils automated count (number/volume) 6.8 10*3 1.8-7.8 Blood lymphocytes automated count (number/volume) 1.4 10*3 1.0-4.0 Blood monocytes automated count (number/volume) 0. 7 10*3 0.0-1.0 Automated eosinophil count 0.1 10*3/uL 0 .0-0.3 Automated blood basophil count (count/volume) 0.0 10*3/uL 0.0-0.1 Whole blood basic metabolic panel - 03/10 05:45 Serum or plasma sodium measurement (moles/volume) 134 mmol/L 135-145 Serum or plasma potassium measurement (moles/volume) 4.9 mmol/L 3.6-5.0 Serum or plasma chloride measurement (moles/volume) 108 mmol/L 98-107 Carbon dioxide 17 mmol/L 21-32 Serum or plasma anion gap determination (moles/volume) 9 mmol/L 5-14 Serum or plasma urea nitrogen measurement (mass/volume ) 27 mg/dL 7-18 Serum or plasma creatinine measurement (mass/volume) 2.48 mg/dL 0.60-1.30 Serum or plasma urea nitrogen/creatinine mass ratio 11 NRG Serum or plasma creatinine measurement w ith calculation of estimated glomerular filtration rate 25 NRG Serum or plasma glucose measurement (mass/volume) 391 mg/dL 70-105 Serum or plasma calcium measurement (mass/volume) 8.7 mg/dL 8.5-10.1 Capillary blood glucose measurement by g lucometer (mass/volume) - 04/27/19 06:25 Capillary blood glucose measurement by glucometer (mas s/volume) 357 mg/dL 70-110 Capillary blood glucose measurement by g lucometer (mass/volume) - 04/27/19 11:08 Capillary blood glucose measurement by glucometer (mas s/volume) 194 mg/dL 70-110 Capillary blood glucose measurement by g lucometer (mass/volume) - 04/27/19 15:47 Capillary blood glucose measurement by glucometer (mas s/volume) 136 mg/dL 70-110 Capillary blood glucose measurement by g lucometer (mass/volume) - 04/27/19 20:50 Capillary blood glucose measurement by glucometer (mas s/volume) 339 mg/dL 70-110 Capillary blood glucose measurement by g lucometer (mass/volume) - 04/28/19 05:24 Capillary blood glucose measurement by glucometer (mas s/volume) 234 mg/dL 70-110 Complete blood count (CBC) with automate d white blood cell (WBC) differential - 04/28/19 05:50 Blood leukocytes automated count (number/volume) 8.3 10*3/uL 4.3-11.0 Blood erythrocytes automated count (number/volume) 3.65 10*6/uL 4.35-5.85 Venous blood hemoglobin measurement (mass/volume) 9.8 g/dL 13.3-17.7 Blood hematocrit (volume fraction) 32 % 40-54 Automated erythrocyte mean corpuscular volume 89 [ foz_us] 80-99 Automated erythrocyte mean corpuscular h emoglobin (mass per erythrocyte) 27 pg 25-34 Automated erythrocyte mean corpuscular h emoglobin concentration measurement (mass/volume) 30 g/dL 32-36 Automated erythrocyte distribution width ratio 15. 5 % 10.0- 14.5 Automated blood platelet count (count/volume) 215 10*3/uL 130-400 Automated blood platelet mean volume measurement 9.6 [foz_us] 7.4-10.4 Automated blood neutrophils/100 leukocytes 75 % 42-75 Automated blood lymphocytes/100 leukocytes 16 % 12-44 Blood monocytes/100 leukocytes 7 % 0-12 Automated blood eosinophils/100 leukocytes 2 % 0-10 Automated blood basophils/100 leukocytes 0 % 0-10 Blood neutrophils automated count (number/volume) 6.2 10*3 1.8-7.8 Blood lymphocytes automated count (number/volume) 1.3 10*3 1.0-4.0 Blood monocytes automated count (number/volume) 0. 6 10*3 0.0-1.0 Automated eosinophil count 0.2 10*3/uL 0 .0-0.3 Automated blood basophil count (count/volume) 0.0 10*3/uL 0.0-0.1 Comprehensive metabolic panel - 04/28/19 05:50 Serum or plasma sodium measurement (moles/volume) 137 mmol/L 135-145 Serum or plasma potassium measurement (moles/volume) 4.8 mmol/L 3.6-5.0 Serum or plasma chloride measurement (moles/volume) 110 mmol/L 98-107 Carbon dioxide 17 mmol/L 21-32 Serum or plasma anion gap determination (moles/volume) 10 mmol/L 5-14 Serum or plasma urea nitrogen measurement (mass/volume ) 28 mg/dL 7-18 Serum or plasma creatinine measurement (mass/volume) 2.73 mg/dL 0.60-1.30 Serum or plasma urea nitrogen/creatinine mass ratio 10 NRG Serum or plasma creatinine measurement w ith calculation of estimated glomerular filtration rate 22 NRG Serum or plasma glucose measurement (mass/volume) 262 mg/dL 70-105 Serum or plasma calcium measurement (mass/volume) 8.6 mg/dL 8.5-10.1 Serum or plasma total bilirubin measurement (mass/volu me) 0.3 mg/dL 0.1-1.0 Serum or plasma alkaline phosphatase kimberli surement (enzymatic activity/volume) 87 U/L 40-136 Serum or plasma aspartate aminotransfera se measurement (enzymatic activity/volume) 13 U/L 5-34 Serum or plasma alanine aminotransferase measurement (enzymatic activity/volume) 14 U/L 0-55 Serum or plasma protein measurement (mass/volume) 5.5 g/dL 6.4-8.2 Serum or plasma albumin measurement (mass/volume) 2.8 g/dL 3.2-4.5 CALCIUM CORRECTED 9.6 mg/dL 8.5-10.1 Capillary blood glucose measurement by g lucometer (mass/volume) - 04/28/19 11:01 Capillary blood glucose measurement by glucometer (mas s/volume) 312 mg/dL 70-110 CULTURE, ANAEROBIC AND AEROBIC - 9 10:22 CULTURE, ANAEROBIC BACTERIA W/GRAM STAIN SEE NOTE NRG CULTURE, AEROBIC BACTERIA SEE NOTE NRG Complete blood count (CBC) with automate d white blood cell (WBC) differential - 08/26/19 11:42 Blood leukocytes automated count (number/volume) 11.5 10*3/uL 4.3-11.0 Blood erythrocytes automated count (number/volume) 4.46 10*6/uL 4.35-5.85 Venous blood hemoglobin measurement (mass/volume) 12.4 g/dL 13.3-17.7 Blood hematocrit (volume fraction) 40 % 40-54 Automated erythrocyte mean corpuscular volume 89 [ foz_us] 80-99 Automated erythrocyte mean corpuscular h emoglobin (mass per erythrocyte) 28 pg 25-34 Automated erythrocyte mean corpuscular h emoglobin concentration measurement (mass/volume) 31 g/dL 32-36 Automated erythrocyte distribution width ratio 16. 8 % 10.0- 14.5 Automated blood platelet count (count/volume) 162 10*3/uL 130-400 Automated blood platelet mean volume measurement 10.4 [foz_us] 7.4-10.4 Automated blood neutrophils/100 leukocytes 72 % 42-75 Automated blood lymphocytes/100 leukocytes 17 % 12-44 Blood monocytes/100 leukocytes 10 % 0-12 Automated blood eosinophils/100 leukocytes 1 % 0-10 Automated blood basophils/100 leukocytes 0 % 0-10 Blood neutrophils automated count (number/volume) 8.3 10*3 1.8-7.8 Blood lymphocytes automated count (number/volume) 2.0 10*3 1.0-4.0 Blood monocytes automated count (number/volume) 1. 1 10*3 0.0-1.0 Automated eosinophil count 0.1 10*3/uL 0 .0-0.3 Automated blood basophil count (count/volume) 0.0 10*3/uL 0.0-0.1 Comprehensive metabolic panel - 08/26/19 11:42 Serum or plasma sodium measurement (moles/volume) 133 mmol/L 135-145 Serum or plasma potassium measurement (moles/volume) 4.1 mmol/L 3.6-5.0 Serum or plasma chloride measurement (moles/volume) 103 mmol/L 98-107 Carbon dioxide 18 mmol/L 21-32 Serum or plasma anion gap determination (moles/volume) 12 mmol/L 5-14 Serum or plasma urea nitrogen measurement (mass/volume ) 70 mg/dL 7-18 Serum or plasma creatinine measurement (mass/volume) 3.11 mg/dL 0.60-1.30 Serum or plasma urea nitrogen/creatinine mass ratio 23 NRG Serum or plasma creatinine measurement w ith calculation of estimated glomerular filtration rate 19 NRG Serum or plasma glucose measurement (mass/volume) 175 mg/dL 70-105 Serum or plasma calcium measurement (mass/volume) 9.1 mg/dL 8.5-10.1 Serum or plasma total bilirubin measurement (mass/volu me) 1.3 mg/dL 0.1-1.0 Serum or plasma alkaline phosphatase kimberli surement (enzymatic activity/volume) 107 U/L 40-136 Serum or plasma aspartate aminotransfera se measurement (enzymatic activity/volume) 21 U/L 5-34 Serum or plasma alanine aminotransferase measurement (enzymatic activity/volume) 35 U/L 0-55 Serum or plasma protein measurement (mass/volume) 6.8 g/dL 6.4-8.2 Serum or plasma albumin measurement (mass/volume) 3.7 g/dL 3.2-4.5 CALCIUM CORRECTED 9.3 mg/dL 8.5-10.1 Magnesium - 08/26/19 11:42 Magnesium 1.7 mg/dL 1.6-2.4 Serum or plasma C reactive protein measu rement (mass/volume) - 08/26/19 11:42 Serum or plasma C reactive protein measurement (mass/v olume) 10.83 mg/dL 0.00-0.50 Serum or plasma lithium measurement (mol es/volume) - 08/26/19 11:42 BNP PT 339.7 pg/mL <100.0 Blood lactic acid measurement (moles/vol ume) - 08/26/19 11:42 Blood lactic acid measurement (moles/volume) 1.71 mmol/L 0.50-2.00 Bacterial blood culture - 08/26/19 11:42 Bacterial blood culture NG NR Bacterial blood culture - 08/26/19 13:30 Bacterial blood culture NG [facility] Complete blood count (CBC) with automate d white blood cell (WBC) differential - 08/27/19 04:30 Blood leukocytes automated count (number/volume) 9.0 10*3/uL 4.3-11.0 Blood erythrocytes automated count (number/volume) 4.14 10*6/uL 4.35-5.85 Venous blood hemoglobin measurement (mass/volume) 11.5 g/dL 13.3-17.7 Blood hematocrit (volume fraction) 37 % 40-54 Automated erythrocyte mean corpuscular volume 89 [ foz_us] 80-99 Automated erythrocyte mean corpuscular h emoglobin (mass per erythrocyte) 28 pg 25-34 Automated erythrocyte mean corpuscular h emoglobin concentration measurement (mass/volume) 31 g/dL 32-36 Automated erythrocyte distribution width ratio 16. 2 % 10.0- 14.5 Automated blood platelet count (count/volume) 150 10*3/uL 130-400 Automated blood platelet mean volume measurement 10.5 [foz_us] 7.4-10.4 Automated blood neutrophils/100 leukocytes 69 % 42-75 Automated blood lymphocytes/100 leukocytes 20 % 12-44 Blood monocytes/100 leukocytes 9 % 0-12 Automated blood eosinophils/100 leukocytes 1 % 0-10 Automated blood basophils/100 leukocytes 0 % 0-10 Blood neutrophils automated count (number/volume) 6.2 10*3 1.8-7.8 Blood lymphocytes automated count (number/volume) 1.8 10*3 1.0-4.0 Blood monocytes automated count (number/volume) 0. 8 10*3 0.0-1.0 Automated eosinophil count 0.1 10*3/uL 0 .0-0.3 Automated blood basophil count (count/volume) 0.0 10*3/uL 0.0-0.1 Comprehensive metabolic panel - 08/27/19 04:30 Serum or plasma sodium measurement (moles/volume) 135 mmol/L 135-145 Serum or plasma potassium measurement (moles/volume) 3.5 mmol/L 3.6-5.0 Serum or plasma chloride measurement (moles/volume) 107 mmol/L 98-107 Carbon dioxide 16 mmol/L 21-32 Serum or plasma anion gap determination (moles/volume) 12 mmol/L 5-14 Serum or plasma urea nitrogen measurement (mass/volume ) 66 mg/dL 7-18 Serum or plasma creatinine measurement (mass/volume) 2.92 mg/dL 0.60-1.30 Serum or plasma urea nitrogen/creatinine mass ratio 23 NRG Serum or plasma creatinine measurement w ith calculation of estimated glomerular filtration rate 21 NRG Serum or plasma glucose measurement (mass/volume) 186 mg/dL 70-105 Serum or plasma calcium measurement (mass/volume) 8.6 mg/dL 8.5-10.1 Serum or plasma total bilirubin measurement (mass/volu me) 0.9 mg/dL 0.1-1.0 Serum or plasma alkaline phosphatase kimberli surement (enzymatic activity/volume) 76 U/L 40-136 Serum or plasma aspartate aminotransfera se measurement (enzymatic activity/volume) 12 U/L 5-34 Serum or plasma alanine aminotransferase measurement (enzymatic activity/volume) 22 U/L 0-55 Serum or plasma protein measurement (mass/volume) 5.6 g/dL 6.4-8.2 Serum or plasma albumin measurement (mass/volume) 3.0 g/dL 3.2-4.5 CALCIUM CORRECTED 9.4 mg/dL 8.5-10.1 Capillary blood glucose measurement by g lucometer (mass/volume) - 08/27/19 11:12 Capillary blood glucose measurement by glucometer (mas s/volume) 318 mg/dL 70-110 Capillary blood glucose measurement by g lucometer (mass/volume) - 08/27/19 15:45 Capillary blood glucose measurement by glucometer (mas s/volume) 347 mg/dL 70-110 Vancomycin trough - 08/27/19 16:06 Vancomycin trough 15.7 ug/mL 10.0-20.0 Capillary blood glucose measurement by g lucometer (mass/volume) - 08/27/19 20:52 Capillary blood glucose measurement by glucometer (mas s/volume) 408 mg/dL 70-110 Capillary blood glucose measurement by g lucometer (mass/volume) - 08/28/19 06:49 Capillary blood glucose measurement by glucometer (mas s/volume) 350 mg/dL 70-110 Complete blood count (CBC) with automate d white blood cell (WBC) differential - 08/28/19 09:05 Blood leukocytes automated count (number/volume) 9.5 10*3/uL 4.3-11.0 Blood erythrocytes automated count (number/volume) 3.91 10*6/uL 4.35-5.85 Venous blood hemoglobin measurement (mass/volume) 10.8 g/dL 13.3-17.7 Blood hematocrit (volume fraction) 35 % 40-54 Automated erythrocyte mean corpuscular volume 88 [ foz_us] 80-99 Automated erythrocyte mean corpuscular h emoglobin (mass per erythrocyte) 28 pg 25-34 Automated erythrocyte mean corpuscular h emoglobin concentration measurement (mass/volume) 31 g/dL 32-36 Automated erythrocyte distribution width ratio 16. 2 % 10.0- 14.5 Automated blood platelet count (count/volume) 157 10*3/uL 130-400 Automated blood platelet mean volume measurement 10.2 [foz_us] 7.4-10.4 Automated blood neutrophils/100 leukocytes 77 % 42-75 Automated blood lymphocytes/100 leukocytes 15 % 12-44 Blood monocytes/100 leukocytes 8 % 0-12 Automated blood eosinophils/100 leukocytes 0 % 0-10 Automated blood basophils/100 leukocytes 0 % 0-10 Blood neutrophils automated count (number/volume) 7.3 10*3 1.8-7.8 Blood lymphocytes automated count (number/volume) 1.5 10*3 1.0-4.0 Blood monocytes automated count (number/volume) 0. 7 10*3 0.0-1.0 Automated eosinophil count 0.0 10*3/uL 0 .0-0.3 Automated blood basophil count (count/volume) 0.0 10*3/uL 0.0-0.1 Comprehensive metabolic panel - 08/28/19 09:05 Serum or plasma sodium measurement (moles/volume) 130 mmol/L 135-145 Serum or plasma potassium measurement (moles/volume) 4.5 mmol/L 3.6-5.0 Serum or plasma chloride measurement (moles/volume) 105 mmol/L 98-107 Carbon dioxide 14 mmol/L 21-32 Serum or plasma anion gap determination (moles/volume) 11 mmol/L 5-14 Serum or plasma urea nitrogen measurement (mass/volume ) 50 mg/dL 7-18 Serum or plasma creatinine measurement (mass/volume) 2.72 mg/dL 0.60-1.30 Serum or plasma urea nitrogen/creatinine mass ratio 18 NRG Serum or plasma creatinine measurement w ith calculation of estimated glomerular filtration rate 22 NRG Serum or plasma glucose measurement (mass/volume) 400 mg/dL 70-105 Serum or plasma calcium measurement (mass/volume) 8.3 mg/dL 8.5-10.1 Serum or plasma total bilirubin measurement (mass/volu me) 0.4 mg/dL 0.1-1.0 Serum or plasma alkaline phosphatase kimberli surement (enzymatic activity/volume) 77 U/L 40-136 Serum or plasma aspartate aminotransfera se measurement (enzymatic activity/volume) 11 U/L 5-34 Serum or plasma alanine aminotransferase measurement (enzymatic activity/volume) 18 U/L 0-55 Serum or plasma protein measurement (mass/volume) 5.6 g/dL 6.4-8.2 Serum or plasma albumin measurement (mass/volume) 2.9 g/dL 3.2-4.5 CALCIUM CORRECTED 9.2 mg/dL 8.5-10.1 Capillary blood glucose measurement by g lucometer (mass/volume) - 08/28/19 10:39 Capillary blood glucose measurement by glucometer (mas s/volume) 323 mg/dL 70-110 Capillary blood glucose measurement by g lucometer (mass/volume) - 08/28/19 16:03 Capillary blood glucose measurement by glucometer (mas s/volume) 296 mg/dL 70-110 Capillary blood glucose measurement by g lucometer (mass/volume) - 08/28/19 21:34 Capillary blood glucose measurement by glucometer (mas s/volume) 246 mg/dL 70-110 Capillary blood glucose measurement by g lucometer (mass/volume) - 08/29/19 06:08 Capillary blood glucose measurement by glucometer (mas s/volume) 217 mg/dL 70-110 Capillary blood glucose measurement by g lucometer (mass/volume) - 08/29/19 11:06 Capillary blood glucose measurement by glucometer (mas s/volume) 162 mg/dL 70-110 Capillary blood glucose measurement by g lucometer (mass/volume) - 08/29/19 15:56 Capillary blood glucose measurement by glucometer (mas s/volume) 303 mg/dL 70-110 Vancomycin trough - 08/29/19 16:00 Vancomycin trough 22.3 ug/mL 10.0-20.0 Capillary blood glucose measurement by g lucometer (mass/volume) - 08/29/19 20:09 Capillary blood glucose measurement by glucometer (mas s/volume) 213 mg/dL 70-110 Complete blood count (CBC) with automate d white blood cell (WBC) differential - 08/30/19 04:30 Blood leukocytes automated count (number/volume) 9.5 10*3/uL 4.3-11.0 Blood erythrocytes automated count (number/volume) 4.17 10*6/uL 4.35-5.85 Venous blood hemoglobin measurement (mass/volume) 11.6 g/dL 13.3-17.7 Blood hematocrit (volume fraction) 37 % 40-54 Automated erythrocyte mean corpuscular volume 89 [ foz_us] 80-99 Automated erythrocyte mean corpuscular h emoglobin (mass per erythrocyte) 28 pg 25-34 Automated erythrocyte mean corpuscular h emoglobin concentration measurement (mass/volume) 31 g/dL 32-36 Automated erythrocyte distribution width ratio 16. 3 % 10.0- 14.5 Automated blood platelet count (count/volume) 204 10*3/uL 130-400 Automated blood platelet mean volume measurement 10.3 [foz_us] 7.4-10.4 Automated blood neutrophils/100 leukocytes 71 % 42-75 Automated blood lymphocytes/100 leukocytes 19 % 12-44 Blood monocytes/100 leukocytes 8 % 0-12 Automated blood eosinophils/100 leukocytes 1 % 0-10 Automated blood basophils/100 leukocytes 0 % 0-10 Blood neutrophils automated count (number/volume) 6.8 10*3 1.8-7.8 Blood lymphocytes automated count (number/volume) 1.8 10*3 1.0-4.0 Blood monocytes automated count (number/volume) 0. 7 10*3 0.0-1.0 Automated eosinophil count 0.1 10*3/uL 0 .0-0.3 Automated blood basophil count (count/volume) 0.0 10*3/uL 0.0-0.1 Comprehensive metabolic panel - 08/30/19 04:30 Serum or plasma sodium measurement (moles/volume) 136 mmol/L 135-145 Serum or plasma potassium measurement (moles/volume) 4.9 mmol/L 3.6-5.0 Serum or plasma chloride measurement (moles/volume) 112 mmol/L 98-107 Carbon dioxide 13 mmol/L 21-32 Serum or plasma anion gap determination (moles/volume) 11 mmol/L 5-14 Serum or plasma urea nitrogen measurement (mass/volume ) 54 mg/dL 7-18 Serum or plasma creatinine measurement (mass/volume) 2.69 mg/dL 0.60-1.30 Serum or plasma urea nitrogen/creatinine mass ratio 20 NRG Serum or plasma creatinine measurement w ith calculation of estimated glomerular filtration rate 23 NRG Serum or plasma glucose measurement (mass/volume) 136 mg/dL 70-105 Serum or plasma calcium measurement (mass/volume) 8.8 mg/dL 8.5-10.1 Serum or plasma total bilirubin measurement (mass/volu me) 0.2 mg/dL 0.1-1.0 Serum or plasma alkaline phosphatase kimberli surement (enzymatic activity/volume) 95 U/L 40-136 Serum or plasma aspartate aminotransfera se measurement (enzymatic activity/volume) 20 U/L 5-34 Serum or plasma alanine aminotransferase measurement (enzymatic activity/volume) 27 U/L 0-55 Serum or plasma protein measurement (mass/volume) 5.9 g/dL 6.4-8.2 Serum or plasma albumin measurement (mass/volume) 3.1 g/dL 3.2-4.5 CALCIUM CORRECTED 9.5 mg/dL 8.5-10.1 Capillary blood glucose measurement by g lucometer (mass/volume) - 08/30/19 06:12 Capillary blood glucose measurement by glucometer (mas s/volume) 130 mg/dL 70-110 Vancomycin trough - 08/30/19 08:10 Vancomycin trough 19.6 ug/mL 10.0-20.0 Capillary blood glucose measurement by g lucometer (mass/volume) - 08/30/19 11:04 Capillary blood glucose measurement by glucometer (mas s/volume) 218 mg/dL 70-110 Capillary blood glucose measurement by g lucometer (mass/volume) - 08/30/19 16:29 Capillary blood glucose measurement by glucometer (mas s/volume) 129 mg/dL 70-110 Capillary blood glucose measurement by g lucometer (mass/volume) - 08/30/19 20:42 Capillary blood glucose measurement by glucometer (mas s/volume) 125 mg/dL 70-110 Complete blood count (CBC) with automate d white blood cell (WBC) differential - 08/31/19 05:20 Blood leukocytes automated count (number/volume) 8.7 10*3/uL 4.3-11.0 Blood erythrocytes automated count (number/volume) 4.09 10*6/uL 4.35-5.85 Venous blood hemoglobin measurement (mass/volume) 11.3 g/dL 13.3-17.7 Blood hematocrit (volume fraction) 37 % 40-54 Automated erythrocyte mean corpuscular volume 91 [ foz_us] 80-99 Automated erythrocyte mean corpuscular h emoglobin (mass per erythrocyte) 28 pg 25-34 Automated erythrocyte mean corpuscular h emoglobin concentration measurement (mass/volume) 30 g/dL 32-36 Automated erythrocyte distribution width ratio 16. 2 % 10.0- 14.5 Automated blood platelet count (count/volume) 209 10*3/uL 130-400 Automated blood platelet mean volume measurement 9.8 [foz_us] 7.4-10.4 Automated blood neutrophils/100 leukocytes 69 % 42-75 Automated blood lymphocytes/100 leukocytes 22 % 12-44 Blood monocytes/100 leukocytes 8 % 0-12 Automated blood eosinophils/100 leukocytes 1 % 0-10 Automated blood basophils/100 leukocytes 1 % 0-10 Blood neutrophils automated count (number/volume) 6.0 10*3 1.8-7.8 Blood lymphocytes automated count (number/volume) 1.9 10*3 1.0-4.0 Blood monocytes automated count (number/volume) 0. 7 10*3 0.0-1.0 Automated eosinophil count 0.1 10*3/uL 0 .0-0.3 Automated blood basophil count (count/volume) 0.1 10*3/uL 0.0-0.1 Whole blood basic metabolic panel - 08/22 05:20 Serum or plasma sodium measurement (moles/volume) 136 mmol/L 135-145 Serum or plasma potassium measurement (moles/volume) 5.0 mmol/L 3.6-5.0 Serum or plasma chloride measurement (moles/volume) 111 mmol/L 98-107 Carbon dioxide 14 mmol/L 21-32 Serum or plasma anion gap determination (moles/volume) 11 mmol/L 5-14 Serum or plasma urea nitrogen measurement (mass/volume ) 55 mg/dL 7-18 Serum or plasma creatinine measurement (mass/volume) 2.54 mg/dL 0.60-1.30 Serum or plasma urea nitrogen/creatinine mass ratio 22 NRG Serum or plasma creatinine measurement w ith calculation of estimated glomerular filtration rate 24 NRG Serum or plasma glucose measurement (mass/volume) 268 mg/dL 70-105 Serum or plasma calcium measurement (mass/volume) 8.7 mg/dL 8.5-10.1 Capillary blood glucose measurement by g lucometer (mass/volume) - 08/31/19 06:40 Capillary blood glucose measurement by glucometer (mas s/volume) 213 mg/dL 70-110 Capillary blood glucose measurement by g lucometer (mass/volume) - 08/31/19 10:51 Capillary blood glucose measurement by glucometer (mas s/volume) 177 mg/dL 70-110 Complete blood count (CBC) with automate d white blood cell (WBC) differential - 09/13/19 14:09 Blood leukocytes automated count (number/volume) 12.7 10*3/uL 4.3-11.0 Blood erythrocytes automated count (number/volume) 4.33 10*6/uL 4.35-5.85 Venous blood hemoglobin measurement (mass/volume) 12.2 g/dL 13.3-17.7 Blood hematocrit (volume fraction) 39 % 40-54 Automated erythrocyte mean corpuscular volume 91 [ foz_us] 80-99 Automated erythrocyte mean corpuscular h emoglobin (mass per erythrocyte) 28 pg 25-34 Automated erythrocyte mean corpuscular h emoglobin concentration measurement (mass/volume) 31 g/dL 32-36 Automated erythrocyte distribution width ratio 17. 0 % 10.0- 14.5 Automated blood platelet count (count/volume) 175 10*3/uL 130-400 Automated blood platelet mean volume measurement 9.6 [foz_us] 7.4-10.4 Automated blood neutrophils/100 leukocytes 82 % 42-75 Automated blood lymphocytes/100 leukocytes 9 % 12-44 Blood monocytes/100 leukocytes 9 % 0-12 Automated blood eosinophils/100 leukocytes 0 % 0-10 Automated blood basophils/100 leukocytes 0 % 0-10 Blood neutrophils automated count (number/volume) 10.4 10*3 1.8-7.8 Blood lymphocytes automated count (number/volume) 1.1 10*3 1.0-4.0 Blood monocytes automated count (number/volume) 1. 2 10*3 0.0-1.0 Automated eosinophil count 0.0 10*3/uL 0 .0-0.3 Automated blood basophil count (count/volume) 0.0 10*3/uL 0.0-0.1 Comprehensive metabolic panel - 09/13/19 14:09 Serum or plasma sodium measurement (moles/volume) 135 mmol/L 135-145 Serum or plasma potassium measurement (moles/volume) 5.0 mmol/L 3.6-5.0 Serum or plasma chloride measurement (moles/volume) 115 mmol/L 98-107 Carbon dioxide 12 mmol/L 21-32 Serum or plasma anion gap determination (moles/volume) 8 mmol/L 5-14 Serum or plasma urea nitrogen measurement (mass/volume ) 64 mg/dL 7-18 Serum or plasma creatinine measurement (mass/volume) 2.81 mg/dL 0.60-1.30 Serum or plasma urea nitrogen/creatinine mass ratio 23 NRG Serum or plasma creatinine measurement w ith calculation of estimated glomerular filtration rate 21 NRG Serum or plasma glucose measurement (mass/volume) 270 mg/dL 70-105 Serum or plasma calcium measurement (mass/volume) 8.5 mg/dL 8.5-10.1 Serum or plasma total bilirubin measurement (mass/volu me) 0.9 mg/dL 0.1-1.0 Serum or plasma alkaline phosphatase kimberli surement (enzymatic activity/volume) 144 U/L 40-136 Serum or plasma aspartate aminotransfera se measurement (enzymatic activity/volume) 18 U/L 5-34 Serum or plasma alanine aminotransferase measurement (enzymatic activity/volume) 48 U/L 0-55 Serum or plasma protein measurement (mass/volume) 6.3 g/dL 6.4-8.2 Serum or plasma albumin measurement (mass/volume) 3.5 g/dL 3.2-4.5 CALCIUM CORRECTED 8.9 mg/dL 8.5-10.1 PT panel in platelet poor plasma by coag ulation assay - 09/13/19 14:09 Prothrombin time (PT) in platelet poor plasma by coagu lation assay 13.6 s 12.2-14.7 INR in platelet poor plasma or blood by coagulation as say 1.0 0.8-1.4 Bacterial blood culture - 09/13/19 14:09 Bacterial blood culture [facility] Blood lactic acid measurement (moles/vol ume) - 09/13/19 14:20 Blood lactic acid measurement (moles/volume) 1.25 mmol/L 0.50-2.00 Bacterial blood culture - 09/13/19 14:20 Bacterial blood culture [facility] Complete blood count (CBC) with automate d white blood cell (WBC) differential - 09/20/19 15:15 Blood leukocytes automated count (number/volume) 9.3 10*3/uL 4.3-11.0 Blood erythrocytes automated count (number/volume) 4.37 10*6/uL 4.35-5.85 Venous blood hemoglobin measurement (mass/volume) 12.3 g/dL 13.3-17.7 Blood hematocrit (volume fraction) 39 % 40-54 Automated erythrocyte mean corpuscular volume 88 [ foz_us] 80-99 Automated erythrocyte mean corpuscular h emoglobin (mass per erythrocyte) 28 pg 25-34 Automated erythrocyte mean corpuscular h emoglobin concentration measurement (mass/volume) 32 g/dL 32-36 Automated erythrocyte distribution width ratio 16. 2 % 10.0- 14.5 Automated blood platelet count (count/volume) 178 10*3/uL 130-400 Automated blood platelet mean volume measurement 9.8 [foz_us] 7.4-10.4 Automated blood neutrophils/100 leukocytes 80 % 42-75 Automated blood lymphocytes/100 leukocytes 11 % 12-44 Blood monocytes/100 leukocytes 8 % 0-12 Automated blood eosinophils/100 leukocytes 1 % 0-10 Automated blood basophils/100 leukocytes 0 % 0-10 Blood neutrophils automated count (number/volume) 7.4 10*3 1.8-7.8 Blood lymphocytes automated count (number/volume) 1.1 10*3 1.0-4.0 Blood monocytes automated count (number/volume) 0. 8 10*3 0.0-1.0 Automated eosinophil count 0.1 10*3/uL 0 .0-0.3 Automated blood basophil count (count/volume) 0.0 10*3/uL 0.0-0.1 Comprehensive metabolic panel - 09/20/19 15:15 Serum or plasma sodium measurement (moles/volume) 138 mmol/L 135-145 Serum or plasma potassium measurement (moles/volume) 2.9 mmol/L 3.6-5.0 Serum or plasma chloride measurement (moles/volume) 108 mmol/L 98-107 Carbon dioxide 16 mmol/L 21-32 Serum or plasma anion gap determination (moles/volume) 14 mmol/L 5-14 Serum or plasma urea nitrogen measurement (mass/volume ) 68 mg/dL 7-18 Serum or plasma creatinine measurement (mass/volume) 3.59 mg/dL 0.60-1.30 Serum or plasma urea nitrogen/creatinine mass ratio 19 NRG Serum or plasma creatinine measurement w ith calculation of estimated glomerular filtration rate 16 NRG Serum or plasma glucose measurement (mass/volume) 280 mg/dL 70-105 Serum or plasma calcium measurement (mass/volume) 8.5 mg/dL 8.5-10.1 Serum or plasma total bilirubin measurement (mass/volu me) 0.6 mg/dL 0.1-1.0 Serum or plasma alkaline phosphatase kimberli surement (enzymatic activity/volume) 116 U/L 40-136 Serum or plasma aspartate aminotransfera se measurement (enzymatic activity/volume) 16 U/L 5-34 Serum or plasma alanine aminotransferase measurement (enzymatic activity/volume) 24 U/L 0-55 Serum or plasma protein measurement (mass/volume) 6.4 g/dL 6.4-8.2 Serum or plasma albumin measurement (mass/volume) 3.4 g/dL 3.2-4.5 CALCIUM CORRECTED 9.0 mg/dL 8.5-10.1 Blood lactic acid measurement (moles/vol ume) - 09/20/19 15:15 Blood lactic acid measurement (moles/volume) 1.66 mmol/L 0.50-2.00 Serum or plasma troponin i.cardiac measu rement (mass/volume) - 09/20/19 15:15 Serum or plasma troponin i.cardiac measurement (mass/v olume) 0.047 ng/mL <0.028 Serum or plasma C reactive protein measu rement (mass/volume) - 09/20/19 15:15 Serum or plasma C reactive protein measurement (mass/v olume) 3.58 mg/dL 0.00-0.50 PT panel in platelet poor plasma by coag ulation assay - 09/20/19 15:15 Prothrombin time (PT) in platelet poor plasma by coagu lation assay 13.7 s 12.2-14.7 INR in platelet poor plasma or blood by coagulation as say 1.0 0.8-1.4 Activated partial thromboplastin time (a PTT) in platelet poor plasma bycoagulation assay - 09/20/19 15:15 Activated partial thromboplastin time (a PTT) in platelet poor plasma bycoagulation assay 30 s 24-35 Serum or plasma lithium measurement (mol es/volume) - 09/20/19 15:15 BNP PT 241.9 pg/mL <100.0 Influenza virus A and B antigen detectio n - 09/20/19 15:30 CALL POSITIVES (F1 HELP) CALLED TO Cory SALAMANCA, AT 1551 NRG FLU RESULT POSITIVE FOR INFLUENZA B ANT IGEN, NEG FOR A ANTIGEN, BY IA NRG Complete urinalysis with reflex to cultu re - 09/20/19 16:23 Urine color determination YELLOW NRG Urine clarity determination CLEAR NR G Urine pH measurement by test strip 5.5 5-9 Specific gravity of urine by test strip 1.015 1.016-1.022 Urine protein assay by test strip, semi-quantitative TRACE NEGATIVE Urine glucose detection by automated test strip TR DASIA NEGATIVE Erythrocytes detection in urine sediment by light micr oscopy TRACE-I NEGATIVE Urine ketones detection by automated test strip NE GATIVE NEGATIVE Urine nitrite detection by test strip NEGATIVE NEGATIVE Urine total bilirubin detection by test strip NEGA TIVE NEGATIVE Urine urobilinogen measurement by automated test strip (mass/volume) 0.2 mg/dL < = 1.0 Urine leukocyte esterase detection by dipstick NEG ATIVE NEGATIVE Automated urine sediment erythrocyte cou nt by microscopy (number/high power field) NONE NRG Automated urine sediment leukocyte count by microscopy (number/high power field) [HPF] NRG Bacteria detection in urine sediment by light microsco py TRACE NRG Squamous epithelial cells detection in u rine sediment by light microscopy 0-2 NRG Crystals detection in urine sediment by light microsco py NONE NRG Casts detection in urine sediment by light microscopy NONE NRG Mucus detection in urine sediment by light microscopy NEGATIVE NRG Complete urinalysis with reflex to culture CULTURE PENDING NRG Capillary blood glucose measurement by g lucometer (mass/volume) - 09/20/19 21:11 Capillary blood glucose measurement by glucometer (mas s/volume) 229 mg/dL 70-110 Blood lactic acid measurement (moles/vol ume) - 09/20/19 22:22 Blood lactic acid measurement (moles/volume) 2.90 mmol/L 0.50-2.00 Serum or plasma troponin i.cardiac measu rement (mass/volume) - 09/20/19 22:22 Serum or plasma troponin i.cardiac measurement (mass/v olume) 0.042 ng/mL <0.028 Complete blood count (CBC) with automate d white blood cell (WBC) differential - 09/21/19 04:30 Blood leukocytes automated count (number/volume) 8.3 10*3/uL 4.3-11.0 Blood erythrocytes automated count (number/volume) 4.14 10*6/uL 4.35-5.85 Venous blood hemoglobin measurement (mass/volume) 11.6 g/dL 13.3-17.7 Blood hematocrit (volume fraction) 37 % 40-54 Automated erythrocyte mean corpuscular volume 90 [ foz_us] 80-99 Automated erythrocyte mean corpuscular h emoglobin (mass per erythrocyte) 28 pg 25-34 Automated erythrocyte mean corpuscular h emoglobin concentration measurement (mass/volume) 31 g/dL 32-36 Automated erythrocyte distribution width ratio 16. 3 % 10.0- 14.5 Automated blood platelet count (count/volume) 175 10*3/uL 130-400 Automated blood platelet mean volume measurement 10.0 [foz_us] 7.4-10.4 Automated blood neutrophils/100 leukocytes 81 % 42-75 Automated blood lymphocytes/100 leukocytes 11 % 12-44 Blood monocytes/100 leukocytes 8 % 0-12 Automated blood eosinophils/100 leukocytes 0 % 0-10 Automated blood basophils/100 leukocytes 0 % 0-10 Blood neutrophils automated count (number/volume) 6.7 10*3 1.8-7.8 Blood lymphocytes automated count (number/volume) 0.9 10*3 1.0-4.0 Blood monocytes automated count (number/volume) 0. 7 10*3 0.0-1.0 Automated eosinophil count 0.0 10*3/uL 0 .0-0.3 Automated blood basophil count (count/volume) 0.0 10*3/uL 0.0-0.1 Comprehensive metabolic panel - 09/21/19 04:30 Serum or plasma sodium measurement (moles/volume) 140 mmol/L 135-145 Serum or plasma potassium measurement (moles/volume) 3.9 mmol/L 3.6-5.0 Serum or plasma chloride measurement (moles/volume) 113 mmol/L 98-107 Carbon dioxide 14 mmol/L 21-32 Serum or plasma anion gap determination (moles/volume) 13 mmol/L 5-14 Serum or plasma urea nitrogen measurement (mass/volume ) 65 mg/dL 7-18 Serum or plasma creatinine measurement (mass/volume) 3.32 mg/dL 0.60-1.30 Serum or plasma urea nitrogen/creatinine mass ratio 20 NRG Serum or plasma creatinine measurement w ith calculation of estimated glomerular filtration rate 18 NRG Serum or plasma glucose measurement (mass/volume) 337 mg/dL 70-105 Serum or plasma calcium measurement (mass/volume) 8.1 mg/dL 8.5-10.1 Serum or plasma total bilirubin measurement (mass/volu me) 0.4 mg/dL 0.1-1.0 Serum or plasma alkaline phosphatase kimberli surement (enzymatic activity/volume) 112 U/L 40-136 Serum or plasma aspartate aminotransfera se measurement (enzymatic activity/volume) 13 U/L 5-34 Serum or plasma alanine aminotransferase measurement (enzymatic activity/volume) 20 U/L 0-55 Serum or plasma protein measurement (mass/volume) 5.8 g/dL 6.4-8.2 Serum or plasma albumin measurement (mass/volume) 3.1 g/dL 3.2-4.5 CALCIUM CORRECTED 8.8 mg/dL 8.5-10.1 Serum or plasma troponin i.cardiac measu rement (mass/volume) - 09/21/19 04:30 Serum or plasma troponin i.cardiac measurement (mass/v olume) 0.037 ng/mL <0.028 Encounters ACCT No. Visit Date/Time Discharge Status Pt. Type Provider Facility Loc./Unit Complaint [id number] 02/27/2016 10:28:00 02/27/2016 10:28 :00 DIS Outpatient LAURYN VILLANUEVA [facility] RAD [id number] 02/26/2016 09:52:00 02/26/2016 09:52 :00 DIS Outpatient LAURYN VILLANUEVA [facility] [id number] 11/14/2015 13:28:00 11/14/2015 13:28 :00 DIS Outpatient JR BRICEÑO [facility] RAD [id number] 08/21/2015 00:00:00 Document Registration [id number] 08/03/2018 15:21:58 08/03/2018 23:59: 59 CLS Outpatient Es Hidalgo [id number] 05/18/2018 10:38:13 05/18/2018 23:59: 59 CLS Outpatient Tiago Burroughs [id number] 01/19/2018 11:54:59 01/19/2018 23:59: 59 CLS Outpatient Tiago Burroughs [id number] 01/05/2018 16:50:26 01/05/2018 23:59: 59 CLS Outpatient Tiago Burroughs [id number] 09/26/2016 10:13:33 09/26/2016 23:59: 59 CLS Outpatient Juan, V S [id number] 10/24/2014 14:30:41 10/24/2014 23:59: 59 CLS Outpatient Juan, V S [id number] 10/10/2014 13:59:32 10/10/2014 23:59: 59 CLS Outpatient Juan, V S [id number] 04/06/2014 09:21:00 04/06/2014 23:59: 59 CLS Outpatient GABE DDSMARILIA [id number] 02/15/2014 15:07:00 02/15/2014 23:59: 59 CLS Outpatient GABE DDSMARILIA [id number] 03/14/2018 11:27:10 ACT Document Registration [id number] 03/03/2018 03:31:57 8 23:59:59 DIS Outpatient TRACEE CAMPOS [facility] [id number] 03/01/2018 09:54:36 8 23:59:59 CLS Preadmit SIMON IRENE [facility] MS ACUTE ONCRONIC RENAL FAILURE [id number] 02/28/2018 20:14:00 8 23:59:59 DIS Outpatient TRACEE CAMPOS [facility] [id number] 02/23/2018 16:21:22 8 23:59:59 CLS Preadmit SIMON IRENE [facility] RAD elevated bmp [id number] 02/23/2018 11:53:42 8 23:59:59 DIS Outpatient SIMON IRENE [facility] LAB [id number] 09/29/2017 12:57:00 8 23:59:59 DIS Outpatient LAURYN VILLANUEVA [facility] LAB [id number] 04/08/2017 08:22:18 7 23:59:59 DIS Outpatient SIMON IRENE [facility] RAD heart failure [id number] 11/18/2016 11:03:32 7 23:59:59 CLS Preadmit [facility] PT Weakness S/P Pneumonia [id number] 02/28/2018 21:05:00 ACT SIMON ZHENG [facility] OBS ed visit [id number] 02/10/2017 02:02:24 Document Registration [id number] 01/27/2017 02:00:34 Document Registration [id number] 01/13/2017 02:01:35 Document Registration [id number] 11/06/2016 14:57:02 Document Registration [id number] 11/05/2016 03:08:00 ACT V ZECHARIAH DON [facility] OBS sick [id number] 09/13/2019 12:48:00 16:39:00 DIS Outpatient ANGELA LU APRN [facility] ER L KNEE PAIN [id number] 08/26/2019 14:22:00 11:43:00 DIS Inpatient JACKELINE CEE DO, V [facility] 4TH LLE CELLULITIS,CHRONIC RENAL FAILURE [id number] 06/25/2019 09:56:00 23:59:59 CLS Outpatient IGNACIA BURGOS MD [facility] WOUNDCARE [id number] 06/18/2019 09:25:00 23:59:59 CLS Outpatient IGNACIA BURGOS MD [facility] WOUNDCARE [id number] 06/11/2019 09:25:00 23:59:59 CLS Outpatient IGNACIA BURGOS MD [facility] WOUNDCARE [id number] 06/04/2019 08:06:00 23:59:59 CLS Outpatient IGNACIA BURGOS MD [facility] WOUNDCARE [id number] 04/25/2019 16:55:00 13:30:00 DIS Inpatient CHRISTIAN JOHN MD [facility] 4TH DYSPNEA,VOLUME DEPLETIO N [id number] 02/21/2019 11:37:00 13:53:00 DIS Emergency KEANU ESPINOZA [facility] ER AMS [id number] 01/05/2019 07:36:00 14:39:00 DIS Emergency BIGG ARTIS, MARILEE Mathis [facility] ER FALL [id number] 12/26/2018 18:26:00 12:37:00 DIS Inpatient BRIANNA ARTIS, ANGELIKA Iraheta [facility] 4TH SEPSIS,DIVERTICULITIS,L OWER GI BLEED,ANEMIA [id number] 12/20/2018 07:15:00 09:44:00 DIS Emergency LEIGHANN ARTIS, AQUILES Coffey [facility] ER BLOOD IN STOOL [id number] 12/15/2018 13:02:00 15:00:00 DIS Inpatient SIRENA ARTIS, DIPIKA Coffey [facility] 4TH INFLUENZA B,DYSPNEA [id number] 11/25/2018 14:49:00 18:00:00 DIS Emergency BIGG ARTIS, MARILEE Mathis [facility] ER SOB [id number] 11/20/2018 13:32:00 14:00:00 DIS Inpatient CEE DO, JACKELINE [facility] 4TH POSSIBLE ESOPHAGEAL OBS TRUCTION [id number] 07/20/2018 11:59:00 12:25:00 DIS Inpatient CEE DO, JACKELINE [facility] 4TH INFLUENZA B,SEPSIS,R AR M ABSCESS,A- FIB,RENAL - [id number] 04/10/2018 10:55:00 23:59:59 CLS Outpatient ANGIE ARTIS, ZECHARIAH Gonzales [facility] CVS [id number] 03/31/2018 21:30:00 14:25:00 DIS Inpatient LUCIAN ARTIS, KRISTA Duke [facility] 4TH CHEST PAIN [id number] 09/20/2019 18:00:[address] Inpatient JACKELINE CEE DO [facility] CSD INFLUENZA,HYPOXIA,ELEVATED T ROPONIN,HYPOKALEMIA [id number] 08/11/2018 08:04:59 ACT Unknown Simon Irene MD [id number] 02/20/2016 16:15:00 Document Registration [id number] 11/07/2015 13:30:00 Document Registration [id number] 09/14/2019 08:20:00 09/14/2019 23:59:5 9 [facility] Outpatient IGNACIA TIMMONS APRN [facility] [id number] 07/14/2019 08:40:00 Document Registration [id number] 04/19/2019 16:40:00 Document Registration [id number] 06/25/2018 09:00:00 Document Registration
[2019-09-21] MEDS ORDERED: MTP100TCR PO (10:55)
--- OUTSIDE RECORDS SUMMARY | 2019-09-21 22:37 | XMS REPORT | Continuity of Care Document ---
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 04/01/2018 KRISTA EPSTEIN MD Ot I12 .0 [...] 04/01/2018 KRISTA EPSTEIN MD Ot Z79 .4 ORTHOTIC ASSISTANT (CURRENT) USE OF INSULIN 04/01/2018 KRISTA EPSTEIN MD Ot Z79.899 OTHER ORTHOTIC ASSISTANT (CURRENT) DRUG THERAPY 04/01/2018 KRISTA EPSTEIN MD Ot Z87.891 PERSONAL HISTORY OF NICOTINE DEPENDENCE 04/01/2018 KRISTA EPSTEIN MD Ot Z99 .2 DEPENDENCE ON RENAL DIALYSIS 04/01/2018 KRISTA EPSTEIN MD Ot D64 .9 ANEMIA, UNSPECIFIED 04/01/2018 KRISTA EPSTEIN MD Ot 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 04/01/2018 KRISTA EPSTEIN MD Ot I12 .0 [...] 04/01/2018 KRISTA EPSTEIN MD Ot Z79 .4 SENIOR LIVING (CURRENT) USE OF INSULIN 04/01/2018 KRISTA EPSTEIN MD Ot Z79.899 OTHER SENIOR LIVING (CURRENT) DRUG THERAPY 04/01/2018 KRISTA EPSTEIN MD Ot Z87.891 PERSONAL HISTORY OF NICOTINE DEPENDENCE 04/01/2018 KRISTA EPSTEIN MD Ot Z99 .2 DEPENDENCE ON RENAL DIALYSIS 04/03/2018 KRISTA EPSTEIN MD Ot D64 .9 ANEMIA, UNSPECIFIED 04/03/2018 KRISTA EPSTEIN MD Ot 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 04/03/2018 KRISTA EPSTEIN MD Ot I12 .0 [...] 04/03/2018 KRISTA EPSTEIN MD Ot Z79 .4 ORTHOTIC ASSISTANT (CURRENT) USE OF INSULIN 04/03/2018 KRISTA EPSTEIN MD Ot Z79.899 OTHER ORTHOTIC ASSISTANT (CURRENT) DRUG THERAPY 04/03/2018 KRISTA EPSTEIN MD [...] FEVER) 07/23/2018 CARLOS CEE DOI Ot Z79.84 SENIOR LIVING (CURRENT) USE OF ORAL HYPOGLYC 07/23/2018 CARLOS [...] FEVER) 07/24/2018 JACKELINE CEE DO Ot Z79.84 SENIOR LIVING (CURRENT) USE OF ORAL HYPOGLYC 07/24/2018 CARLOS [...] JACKELINE Ot N39.41 URGE INCONTINENCE 07/24/2018 JAYE SMITH JACKELINE Ot N40.1 BENIGN PROSTATIC HYPERPLASIA WITH LOWER 07/24/2018 JAYE SMITH JACKELINE Ot R07.1 CHEST PAIN ON BREATHING 07/24/2018 JAYE SMITH JACKELINE Ot R30.0 DYSURIA 07/24/2018 JAYE SMITH JACKELINE Ot R68.83 CHILLS (WITHOUT FEVER) 07/24/2018 JAYE SMITH JACKELINE Ot Z79.84 SENIOR LIVING (CURRENT) USE OF ORAL HYPOGLYC 07/24/2018 JAYE SMITH JACKELINE Ot Z87.89 1 PERSONAL HISTORY OF NICOTINE DEPENDENCE 11/18/2018 ANGIE ARTIS, ZECHARIAH Gonzales Ot N18 .9 CHRONIC KIDNEY DISEASE, UNSPECIFIED 11/23/2018 JAYE SMITH JACKELINE Ot D64.9 ANEMIA, UNSPECIFIED 11/23/2018 JAYE SMITH JACKELINE Ot E04.1 NONTOXIC SINGLE THYROID NODULE 11/23/2018 JAYE SMITH JACKELINE Ot E11.9 TYPE 2 DIABETES MELLITUS WITHOUT COMPLIC 11/23/2018 JAYE SMITH JACKELINE Ot H35.30 UNSPECIFIED MACULAR DEGENERATION 11/23/2018 CEE DO, JACKELINE Ot I12.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 11/23/2018 CEE DO JACKELINE Ot 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 11/23/2018 CEE DO JACKELINE [...] BREATH 11/23/2018 JAYE SMITH JACKELINE Ot Z79.01 ORTHOTIC ASSISTANT (CURRENT) USE OF ANTICOAGULANT 11/23/2018 JAYE SMITH JACKELINE Ot Z79.4 SENIOR LIVING (CURRENT) USE OF INSULIN 11/23/2018 JAYE SMITH [...] BREATH 11/25/2018 MARILEE PRIDE MD Ot Z79.01 SENIOR LIVING (CURRENT) USE OF ANTICOAGULANT 11/25/2018 MARILEE PRIDE MD Ot Z79.4 SENIOR LIVING (CURRENT) USE OF INSULIN 11/25/2018 MARILEE PRIDE MD, Ot Z79.51 ORTHOTIC ASSISTANT (CURRENT) USE OF INHALED STERO 11/25/2018 MARILEE PRIDE MD, Ot Z79.52 SENIOR LIVING (CURRENT) USE OF SYSTEMIC STER 11/25/2018 MARILEE [...] Ot 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 11/30/2018 CARLOS CEE DOI [...] BREATH 11/30/2018 JAYE SMITH JACKELINE Ot Z79.01 ORTHOTIC ASSISTANT (CURRENT) USE OF ANTICOAGULANT 11/30/2018 JAYE SMITH JACKELINE Ot Z79.4 SENIOR LIVING (CURRENT) USE OF INSULIN 11/30/2018 JAYE SMITH [...] Ot 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 0 DEHYDRATION 12/16/2018 DIPIKA PACK MD, Ot I12. 9 HYPERTENSIVE CHRONIC KIDNEY DISEASE W ST 12/16/2018 DIPIKA PACK MD, Ot I25. 10 ATHSCL HEART DISEASE OF [place] CORONARY 12/16/2018 DIPIKA PACK MD Ot I48. [...] 12/16/2018 DIPIKA PACK MD, Ot Z79. 01 ORTHOTIC ASSISTANT (CURRENT) USE OF ANTICOAGULANT 12/16/2018 DIPIKA PACK MD, Ot Z79. 4 ORTHOTIC ASSISTANT (CURRENT) USE OF INSULIN 12/16/2018 DIPIKA PACK MD, Ot Z87.891 PERSONAL HISTORY OF NICOTINE DEPENDENCE 12/16/2018 DIPIKA PACK MD, Ot Z95. 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 0 DEHYDRATION 12/18/2018 DIPIKA PACK MD, Ot I12. 9 HYPERTENSIVE CHRONIC KIDNEY DISEASE W ST 12/18/2018 DIPIKA PACK MD, Ot I25. 10 ATHSCL HEART DISEASE OF [place] CORONARY 12/18/2018 DIPIKA PACK MD, Ot I48. [...] 12/18/2018 DIPIKA PACK MD, Ot Z79. 01 SENIOR LIVING (CURRENT) USE OF ANTICOAGULANT 12/18/2018 DIPIKA PACK MD, Ot Z79. 4 SENIOR LIVING (CURRENT) USE OF INSULIN 12/18/2018 DIPIKA PACK MD, Ot Z87.891 PERSONAL HISTORY OF NICOTINE DEPENDENCE 12/18/2018 DIPIKA PACK MD, Ot Z95. 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 0 DEHYDRATION 12/18/2018 DIPIKA PACK MD, Ot I12. 9 HYPERTENSIVE CHRONIC KIDNEY DISEASE W ST 12/18/2018 DIPIKA PACK MD, Ot I25. 10 ATHSCL HEART DISEASE OF [place] CORONARY 12/18/2018 DIPIKA PACK MD, Ot I48. [...] 12/18/2018 DIPIKA PACK MD, Ot Z79. 01 ORTHOTIC ASSISTANT (CURRENT) USE OF ANTICOAGULANT 12/18/2018 DIPIKA PACK MD, Ot Z79. 4 ORTHOTIC ASSISTANT (CURRENT) USE OF INSULIN 12/18/2018 DIPIKA PACK MD, Ot Z87.891 PERSONAL HISTORY OF NICOTINE DEPENDENCE 12/18/2018 DIPIKA PACK MD, Ot Z95. 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 0 DEHYDRATION 12/18/2018 DIPIKA PACK MD, Ot I12. 9 HYPERTENSIVE CHRONIC KIDNEY DISEASE W ST 12/18/2018 DIPIKA PACK MD, Ot I25. 10 ATHSCL HEART DISEASE OF [place] CORONARY 12/18/2018 DIPIKA PACK MD, Ot I48. [...] 12/18/2018 DIPIKA PACK MD, Ot Z79. 01 ORTHOTIC ASSISTANT (CURRENT) USE OF ANTICOAGULANT 12/18/2018 DIPIKA PACK MD, Ot Z79. 4 SENIOR LIVING (CURRENT) USE OF INSULIN 12/18/2018 DIPIKA PACK MD, Ot Z87.891 PERSONAL HISTORY OF NICOTINE DEPENDENCE 12/18/2018 DIPIKA PACK MD, Ot Z95. 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 10 ATHSCL HEART DISEASE OF [place] CORONARY 12/20/2018 AQUILES LAWTON MD Ot K21. 9 GASTRO-ESOPHAGEAL REFLUX DISEASE WITHOUT 12/20/2018 AQUILES LAWTON MD Ot K62. 5 HEMORRHAGE OF ANUS AND RECTUM 12/20/2018 AQUILES LAWTON MD Ot M06. 9 RHEUMATOID ARTHRITIS, UNSPECIFIED 12/20/2018 AQUILES LAWTON MD Ot N18. 6 END STAGE RENAL DISEASE 12/20/2018 AQUILES LAWTON MD, Ot Z79. 01 ORTHOTIC ASSISTANT (CURRENT) USE OF ANTICOAGULANT 12/20/2018 AQUILES LAWTON MD Ot Z79. 4 SENIOR LIVING (CURRENT) USE OF INSULIN 12/20/2018 AQUILES LAWTON MD Ot Z79. 52 SENIOR LIVING (CURRENT) USE OF SYSTEMIC STER 12/20/2018 AQUILES LAWTON MD Ot Z79. 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 12/23/2018 AQUILES LAWTON MD Ot I25. 10 ATHSCL HEART DISEASE OF [place] CORONARY 12/23/2018 AQUILES LAWTON MD Ot K21. 9 GASTRO-ESOPHAGEAL REFLUX DISEASE WITHOUT 12/23/2018 AQUILES LAWTON MD Ot K62. 5 HEMORRHAGE OF ANUS AND RECTUM 12/23/2018 AQUILES LAWTON MD Ot M06. 9 RHEUMATOID ARTHRITIS, UNSPECIFIED 12/23/2018 AQUILES LAWTON MD Ot N18. 6 END STAGE RENAL DISEASE 12/23/2018 AQUILES LAWTON MD, Ot Z79. 01 ORTHOTIC ASSISTANT (CURRENT) USE OF ANTICOAGULANT 12/23/2018 AQUILES LAWTON MD Ot Z79. 4 ORTHOTIC ASSISTANT (CURRENT) USE OF INSULIN 12/23/2018 AQUILES LAWTON MD Ot Z79. 52 ORTHOTIC ASSISTANT (CURRENT) USE OF SYSTEMIC STER 12/23/2018 AQUILES LAWTON MD, Ot Z79. 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 01/05/2019 MARILEE PRIDE MD, Ot E11.43 TYPE 2 DIABETES W DIABETIC AUTONOMIC (PO 01/05/2019 MARILEE PRIDE MD, Ot I12.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 01/05/2019 MARILEE PRIDE MD, Ot I25.10 ATHSCL HEART DISEASE OF [place] CORONARY 01/05/2019 MARILEE PRIDE MD, Ot K31.84 [...] BLO 01/05/2019 MARILEE PRIDE MD Ot Z79.02 SENIOR LIVING (CURRENT) USE OF ANTITHROMBOTI 01/05/2019 MARILEE PRIDE MD Ot Z79.4 SENIOR LIVING (CURRENT) USE OF INSULIN 01/05/2019 MARILEE PRIDE MD, Ot Z79.52 SENIOR LIVING (CURRENT) USE OF SYSTEMIC STER 01/05/2019 MARILEE [...] 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 01/07/2019 MARILEE PRIDE MD, Ot E11.43 TYPE 2 DIABETES W DIABETIC AUTONOMIC (PO 01/07/2019 MARILEE PRIDE MD, Ot I12.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 01/07/2019 MARILEE PRIDE MD, Ot I25.10 ATHSCL HEART DISEASE OF [place] CORONARY 01/07/2019 MARILEE PRIDE MD, Ot K31.84 [...] BLO 01/07/2019 MARILEE PRIDE MD, Ot Z79.02 ORTHOTIC ASSISTANT (CURRENT) USE OF ANTITHROMBOTI 01/07/2019 MARILEE PRIDE MD, Ot Z79.4 SENIOR LIVING (CURRENT) USE OF INSULIN 01/07/2019 MARILEE PRIDE MD, Ot Z79.52 ORTHOTIC ASSISTANT (CURRENT) USE OF SYSTEMIC STER 01/07/2019 MARILEE [...] KEANU Ot I25.10 ATHSCL HEART DISEASE OF [place] CORONARY 02/21/2019 JOSIE ESPINOZAIS Ot K21.9 GASTRO-ESOPHAGEAL REFLUX DISEASE WITHOUT 02/21/2019 JOSIE ESPINOZAIS Ot 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, UNSPECIFIED 02/21/2019 ALEXIS KEANU Ot R07.81 PLEURODYNIA 02/21/2019 BERNOT KEANU Ot Z79.02 SENIOR LIVING (CURRENT) USE OF ANTITHROMBOTI 02/21/2019 BERNOT KEANU Ot Z79.4 SENIOR LIVING (CURRENT) USE OF INSULIN 02/21/2019 ALEXIS KEANU Ot Z79.52 ORTHOTIC ASSISTANT (CURRENT) USE OF SYSTEMIC STER 02/21/2019 JOSIE [...] ESPINOZAIS Ot I25.10 ATHSCL HEART DISEASE OF [place] CORONARY 02/25/2019 JOSIE ESPINOZAIS Ot K21.9 GASTRO-ESOPHAGEAL REFLUX DISEASE WITHOUT 02/25/2019 JOSIE ESPINOZAIS Ot 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, UNSPECIFIED 02/25/2019 ALEXIS KEANU Ot R07.81 PLEURODYNIA 02/25/2019 BERNOT KEANU Ot Z79.02 ORTHOTIC ASSISTANT (CURRENT) USE OF ANTITHROMBOTI 02/25/2019 TIARAOT KEANU Ot Z79.4 SENIOR LIVING (CURRENT) USE OF INSULIN 02/25/2019 ALEXIS KEANU Ot Z79.52 SENIOR LIVING (CURRENT) USE OF SYSTEMIC STER 02/25/2019 KEANU [...] MD Ot I25.10 ATHSCL HEART DISEASE OF [place] CORONARY 04/28/2019 CHRISTIAN JOHN MD Ot I48.91 [...] RESUSCITATE 04/28/2019 CHRISTIAN JOHN MD Ot Z79.01 ORTHOTIC ASSISTANT (CURRENT) USE OF ANTICOAGULANT 04/28/2019 CHRISTIAN JOHN [...] MD Ot I25.10 ATHSCL HEART DISEASE OF [place] CORONARY 04/28/2019 CHRISTIAN JOHN MD Ot I48 .1 PERSISTENT ATRIAL FIBRILLATION 04/28/2019 CHRISTIAN JOHN MD Ot I48.91 UNSPECIFIED ATRIAL FIBRILLATION 04/28/2019 CHRISTIAN JOHN MD Ot K21 .9 GASTRO-ESOPHAGEAL REFLUX DISEASE WITHOUT 04/28/2019 CHRISTIAN JOHN MD Ot L40 .9 PSORIASIS, UNSPECIFIED 04/28/2019 CHRISTIAN JOHN MD Ot L89.629 PRESSURE ULCER OF LEFT HEEL, UNSPECIFIED 04/28/2019 CHRISTIAN JOHN MD Ot M06 [...] RESUSCITATE 04/28/2019 CHRISTIAN JOHN MD Ot Z79.01 ORTHOTIC ASSISTANT (CURRENT) USE OF ANTICOAGULANT 04/28/2019 CHRISTIAN JOHN [...] MD Ot I25.10 ATHSCL HEART DISEASE OF [place] CORONARY 04/30/2019 CHRISTIAN JOHN MD Ot I48.91 [...] CHRONIC KIDNEY DISEASE, STAGE 3 (MODERAT 04/30/2019 CHRSITIAN JOHN MD Ot N40 .0 BENIGN PROSTATIC HYPERPLASIA WITHOUT LOW 04/30/2019 CHRISTIAN JOHN MD Ot R06.00 DYSPNEA, UNSPECIFIED 04/30/2019 CHRISTIAN JOHN MD Ot R53 .1 WEAKNESS 04/30/2019 CHRISTIAN JOHN MD Ot Z66 DO NOT RESUSCITATE 04/30/2019 CHRISTIAN JOHN MD Ot Z79.01 SENIOR LIVING (CURRENT) USE OF ANTICOAGULANT 04/30/2019 CHRISTIAN JOHN [...] MD Ot I25.10 ATHSCL HEART DISEASE OF [place] CORONARY 04/30/2019 CHRISTIAN JOHN MD Ot I48.91 UNSPECIFIED ATRIAL FIBRILLATION 04/30/2019 CHRISTIAN JOHN MD Ot K21 .9 GASTRO-ESOPHAGEAL REFLUX DISEASE WITHOUT 04/30/2019 CHRISTIAN JOHN MD Ot L40 .9 PSORIASIS, UNSPECIFIED 04/30/2019 CHRISTIAN JOHN MD Ot M06 .9 RHEUMATOID ARTHRITIS, UNSPECIFIED 04/30/2019 CHRISTIAN OJHN MD Ot M19.91 PRIMARY OSTEOARTHRITIS, UNSPECIFIED SITE [...] MD Ot Z66 DO NOT RESUSCITATE 04/30/2019 CRHISTIAN JOHN MD Ot Z79.01 ORTHOTIC ASSISTANT (CURRENT) USE OF ANTICOAGULANT 04/30/2019 CHRISTIAN JOHN [...] MD, Ot I25.10 ATHSCL HEART DISEASE OF [place] CORONARY 04/30/2019 CHRISTIAN JOHN MD Ot I48.91 [...] RESUSCITATE 04/30/2019 CHRISTIAN JOHN MD, Ot Z79.01 ORTHOTIC ASSISTANT (CURRENT) USE OF ANTICOAGULANT 04/30/2019 CHRISTIAN JOHN MD Ot Z87.891 PERSONAL HISTORY OF NICOTINE DEPENDENCE 04/30/2019 CHRISTIAN JOHN MD Ot Z90.49 ACQUIRED ABSENCE OF OTHER SPECIFIED PART 04/30/2019 CHRISTIAN JOHN MD Ot Z93 .3 COLOSTOMY STATUS 04/30/2019 CHRISTIAN JOHN MD Ot 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 06/21/2019 IGNACIA BURGOS MD Ot 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 06/21/2019 IGNACIA BURGOS MD, Ot E11.52 TYPE [...] 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 06/22/2019 IGNACIA BURGOS MD Ot E11.52 TYPE [...] 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 06/23/2019 IGNACIA BURGOS MD, Ot E11.52 TYPE [...] 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 06/24/2019 IGNACIA BURGOS MD, Ot E11.621 TYPE [...] 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 06/30/2019 IGNACIA BURGOS MD, Ot E11.52 TYPE [...] 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 07/01/2019 IGNACIA BURGOS MD, Ot E11.621 TYPE [...] 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 07/14/2019 IGNACIA BURGOS MD, Ot E11.52 TYPE 2 DIABETES W DIABETIC PERIPHERAL AN 07/14/2019 IGNACIA BRUGOS MD, Ot E11.621 TYPE 2 DIABETES MELLITUS [...] 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 07/14/2019 IGNACIA BURGOS MD, Ot E11.52 TYPE [...] 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 07/19/2019 IGNACIA BURGOS MD, Ot E11.52 TYPE [...] JACKELINE Ot I25.10 ATHSCL HEART DISEASE OF [place] CORONARY 08/31/2019 JAYE DO JACKELINE Ot I48.0 [...] LOW 08/31/2019 JACKELINE CEE DO Ot Z79.01 ORTHOTIC ASSISTANT (CURRENT) USE OF ANTICOAGULANT 08/31/2019 JACKELINE CEE DO Ot Z79.52 ORTHOTIC ASSISTANT (CURRENT) USE OF SYSTEMIC STER 08/31/2019 JACKELINE [...] DOI Ot I25.10 ATHSCL HEART DISEASE OF [place] CORONARY 08/31/2019 JACKELINE CEE DO Ot I48.0 [...] WEAKNESS 08/31/2019 JACKELINE CEE DO Ot Z79.01 SENIOR LIVING (CURRENT) USE OF ANTICOAGULANT 08/31/2019 CARLOS CEE DOI Ot Z79.4 ORTHOTIC ASSISTANT (CURRENT) USE OF INSULIN 08/31/2019 CARLOS CEE DOI Ot Z79.52 SENIOR LIVING (CURRENT) USE OF SYSTEMIC STER 08/31/2019 CARLOS [...] APRN Ot I25.10 ATHSCL HEART DISEASE OF [place] CORONARY 09/16/2019 ANGELA LU APRN Ot K21 .9 GASTRO-ESOPHAGEAL REFLUX DISEASE WITHOUT 09/16/2019 ANGELA LU APRN Ot L03.116 CELLULITIS OF LEFT LOWER LIMB 09/16/2019 ANGELA LU APRN Ot M06 .9 RHEUMATOID ARTHRITIS, UNSPECIFIED 09/16/2019 ANGELA LU APRN Ot M25.562 PAIN IN LEFT KNEE 09/16/2019 ANGELA LU APRN Ot Z79.01 ORTHOTIC ASSISTANT (CURRENT) USE OF ANTICOAGULANT 09/16/2019 ANGELA LU APRN Ot Z79.02 ORTHOTIC ASSISTANT (CURRENT) USE OF ANTITHROMBOTI 09/16/2019 ANGELA LU APRN Ot Z79 .4 SENIOR LIVING (CURRENT) USE OF INSULIN 09/16/2019 ANGELA LU APRN Ot Z79.52 ORTHOTIC ASSISTANT (CURRENT) USE OF SYSTEMIC STER 09/16/2019 ANGELA [...] 02/15/2014 D7140 EXTR ACTION ERUPTED TOOTH/EXR 04/06/2014 02406 JOIN T SURVEY SINGLE VIEW 11/07/2015 11540 OFFI CE/OUTPATIENT VISIT NEW 11/07/2015 31447 X-RA Y EXAM OF ELBOW 11/14/2015 64117 OFFI CE/OUTPATIENT VISIT EST 02/20/2016 77159 FIBR IN DEGRADATION, QUANT 02/26/2016 89499 LUNG PERFUSION IMAGING 02/27/2016 A9540 TC 9 9M MAA UP TO 10 MC 02/27/2016 [id number] IN SPECTION OF UPPER INTESTINAL TRACT, EN 11/18/2018 [id number] DI LATION OF 1 COR ART WITH DRUG-ELUT INT 11/19/2018 [id number] ME ASURE OF CARDIAC SAMPL PRESSURE, L H 11/19/2018 [id number] FL UOROSCOPY OF MULT COR ART USING [...] IGEN, NEG FOR A ANTIGEN, BY [place] [facility] Complete blood count (CBC) with automate d [...] 09:49 Bacteria identification in wound by culture [id number] NRG FREE TEXT EXTERNAL RML PHONED [...] OF GROWTH Isolated NRG Bacterial blood culture [id number] NRG FREE TEXT ENTRY 2 ID REPORTED [...] mg/dL 0.1-1.0 Serum or plasma alkaline phosphatase kimbreli surement (enzymatic activity/volume) 62 U/L 40-136 Serum [...] mg/dL 70-110 Automated blood [facility] panel - 12/15/18 09:05 Blood leukocytes automated [...] ABO+Rh group OP NRG Transfusion band number [id number] NRG Blood group antibody screen NEGATIVE NR [...] - 08/26/19 13:30 Bacterial blood culture NG [facility] Complete blood count (CBC) with automate d [...] culture - 09/13/19 14:09 Bacterial blood culture [facility] Blood lactic acid measurement (moles/vol ume) - 09/13/19 14:20 Blood lactic acid measurement (moles/volume) 1.25 mmol/L 0.50-2.00 Bacterial blood culture - 09/13/19 14:20 Bacterial blood culture [facility] Complete blood count (CBC) with automate [...] Status Pt. Type Provider Facility Loc./Unit Complaint [id number] 02/27/2016 10:28:00 02/27/2016 10:28 :00 DIS Outpatient LAURYN VILLANUEVA [facility] RAD [id number] 02/26/2016 09:52:00 02/26/2016 09:52 :00 DIS Outpatient LAURYN VILLANUEVA [facility] [id number] 11/14/2015 13:28:00 11/14/2015 13:28 :00 DIS Outpatient JR BRICEÑO [facility] RAD [id number] 08/21/2015 00:00:00 Document Registration [id number] 08/03/2018 15:21:58 08/03/2018 23:59: 59 CLS Outpatient Es Hidalgo [id number] 05/18/2018 10:38:13 05/18/2018 23:59: 59 CLS Outpatient Tiago Burroughs [id number] 01/19/2018 11:54:59 01/19/2018 23:59: 59 CLS Outpatient Tiago Burroughs [id number] 01/05/2018 16:50:26 01/05/2018 23:59: 59 CLS Outpatient Tiago Burroughs [id number] 09/26/2016 10:13:33 09/26/2016 23:59: 59 CLS Outpatient Juan, V S [id number] 10/24/2014 14:30:41 10/24/2014 23:59: 59 CLS Outpatient Juan, V S [id number] 10/10/2014 13:59:32 10/10/2014 23:59: 59 CLS Outpatient Juan, V S [id number] 04/06/2014 09:21:00 04/06/2014 23:59: 59 CLS Outpatient GABE DDSMARILIA [id number] 02/15/2014 15:07:00 02/15/2014 23:59: 59 CLS Outpatient GABE DDSMARILIA [facility] 03/14/2018 11:27:10 ACT Document Registration [id number] 03/03/2018 03:31:57 8 23:59:59 DIS Outpatient TRACEE CAMPOS [facility] [id number] 03/01/2018 09:54:36 8 23:59:59 CLS Preadmit SIMON IRENE [facility] MS ACUTE ONCRONIC RENAL FAILURE [id number] 02/28/2018 20:14:00 8 23:59:59 DIS Outpatient TRACEE CAMPOS [facility] [id number] 02/23/2018 16:21:22 8 23:59:59 CLS Preadmit SIMON IRENE [facility] RAD elevated bmp [id number] 02/23/2018 11:53:42 8 23:59:59 DIS Outpatient SIMON IRENE [facility] [id number] 09/29/2017 12:57:00 8 23:59:59 DIS Outpatient LAURYN VILLANUEVA [facility] [id number] 04/08/2017 08:22:18 7 23:59:59 DIS Outpatient SIMON IRENE [facility] RAD heart failure [id number] 11/18/2016 11:03:32 7 23:59:59 CLS Preadmit [facility] PT Weakness S/P Pneumonia [id number] 02/28/2018 21:05:00 ACT SIMON ZHENG [facility] OBS ed visit [id number] 02/10/2017 02:02:24 Document Registration [id number] 01/27/2017 02:00:34 Document Registration [id number] 01/13/2017 02:01:35 Document Registration [id number] 11/06/2016 14:57:02 Document Registration [id number] 11/05/2016 03:08:00 ACT V ZECHARIAH DON [facility] KIRAN OBS sick [id number] 09/13/2019 12:48:00 16:39:00 DIS Outpatient ANGELA LU APRN [facility] ER L KNEE PAIN [id number] 08/26/2019 14:22:00 11:43:00 DIS Inpatient JACKELINE CEE DO, V [facility] 4TH LLE CELLULITIS,CHRONIC RENAL FAILURE [id number] 06/25/2019 09:56:00 23:59:59 CLS Outpatient IGNACIA BURGOS MD [facility] WOUNDCARE [id number] 06/18/2019 09:25:00 23:59:59 CLS Outpatient IGNACIA BURGOS MD [facility] WOUNDCARE [id number] 06/11/2019 09:25:00 23:59:59 CLS Outpatient IGNACIA BURGOS MD [facility] WOUNDCARE [id number] 06/04/2019 08:06:00 23:59:59 CLS Outpatient IGNACIA BURGOS MD [facility] WOUNDCARE [id number] 04/25/2019 16:55:00 13:30:00 DIS Inpatient CHRISTIAN JOHN MD [facility] 4TH DYSPNEA,VOLUME DEPLETIO N [id number] 02/21/2019 11:37:00 13:53:00 DIS Emergency KEANU ESPINOZA [facility] ER AMS [id number] 01/05/2019 07:36:00 14:39:00 DIS Emergency BIGG ARTIS, MARILEE Mathis [facility] ER FALL [id number] 12/26/2018 18:26:00 12:37:00 DIS Inpatient BRIANNA ARTIS, ANGELIKA Iraheta [facility] 4TH SEPSIS,DIVERTICULITIS,L OWER GI BLEED,ANEMIA [id number] 12/20/2018 07:15:00 09:44:00 DIS Emergency LEIGHANN ARTIS, AQUILES Coffey [facility] ER BLOOD IN STOOL [id number] 12/15/2018 13:02:00 15:00:00 DIS Inpatient SIRENA ARTIS, DIPIKA Coffey [facility] 4TH INFLUENZA B,DYSPNEA [id number] 11/25/2018 14:49:00 18:00:00 DIS Emergency BIGG ARTIS, MARILEE Mathis [facility] ER SOB [id number] 11/20/2018 13:32:00 14:00:00 DIS Inpatient CEE DO, JACKELINE V [facility] 4TH POSSIBLE ESOPHAGEAL OBS TRUCTION [id number] 07/20/2018 11:59:00 12:25:00 DIS Inpatient CEE DO, JACKELINE V [facility] 4TH INFLUENZA B,SEPSIS,R AR M ABSCESS,A- FIB,RENAL - [id number] 04/10/2018 10:55:00 23:59:59 CLS Outpatient ANGIE ARTIS, ZECHARIAH Gonzales [facility] CVS [id number] 03/31/2018 21:30:00 14:25:00 DIS Inpatient LUCIAN ARTIS, KRISTA Duke [facility] 4TH CHEST PAIN [id number] 09/20/2019 18:00:[address] Inpatient JACKELINE CEE DO [facility] CSD INFLUENZA,HYPOXIA,ELEVATED T ROPONIN,HYPOKALEMIA [id number] 08/11/2018 08:04:59 ACT Unknown Simon Irene MD [id number] 02/20/2016 16:15:00 Document Registration [id number] 11/07/2015 13:30:00 Document Registration [id number] 09/14/2019 08:20:00 09/14/2019 23:59:5 9 [facility] Outpatient IGNACIA TIMMONS APRN [facility] [id number] 07/14/2019 08:40:00 Document Registration [id number] 04/19/2019 16:40:00 Document Registration [id number] 06/25/2018 09:00:00 Document Registration
[2019-09-28] MEDS ORDERED: METO50TA7 PO (11:51)
== END 2019-08-31 11:43 | disposition home health service (06) | DRG 603 ==
LOC: EDUNIT# 10:38 → ER 10:40 → 4TH 14:22
PROVIDERS: ADMIT Internal Medicine; ATTEND Internal Medicine
DX: L03.116 Cellulitis of left lower limb (principal); I25.10 Atherosclerotic heart disease of native coronary artery without angina pectoris; N17.9 Acute kidney failure, unspecified; I12.9 Hypertensive chronic kidney disease with stage 1 through stage 4 chronic kidney disease, or unspecified chronic kidney disease; N18.3 Chronic kidney disease, stage 3 (moderate); I48.20 Chronic atrial fibrillation, unspecified; J44.9 Chronic obstructive pulmonary disease, unspecified; K21.9 Gastro-esophageal reflux disease without esophagitis; N40.0 Benign prostatic hyperplasia without lower urinary tract symptoms; E11.40 Type 2 diabetes mellitus with diabetic neuropathy, unspecified; K57.90 Diverticulosis of intestine, part unspecified, without perforation or abscess without bleeding; M06.9 Rheumatoid arthritis, unspecified; M19.91 Primary osteoarthritis, unspecified site; H35.30 Unspecified macular degeneration; L40.9 Psoriasis, unspecified; R53.1 Weakness; Z95.5 Presence of coronary angioplasty implant and graft; Z79.01 Long term (current) use of anticoagulants; Z79.52 Long term (current) use of systemic steroids; Z86.14 Personal history of Methicillin resistant Staphylococcus aureus infection; Z90.49 Acquired absence of other specified parts of digestive tract; Z93.3 Colostomy status; Z79.4 Long term (current) use of insulin
CPT/HCPCS: 36415; 71045; 80048; 80053; 80202; 82962; 83605; 83735; 83880; 85025; 86141; 87040; 93005; 93926; 96365

== ENCOUNTER 2019-09-13 12:48 | Emergency (ER) | payer MEDICARE ==
[~2019-09-13] VITALS: Ht 177 cm; Wt 91.0 kg
[~2019-09-13 12:48] MED LIST changes: +CEFD300C3 PO; +GLIM4TAB PO; -GLIM4TAB3 PO; +MELA3TAB PO; -MELA3TAB65 PO; +METO-370 PO; +METO-387 PO; +METO-395 PO; -MTP100TCR PO; -MTP25TSR PO; +TAMS0.4C98 PO; -TMSL.4C PO; +TRAZ-222 PO; -TRZ50T PO
[2019-09-13 14:18] LABS: BASOPHILS % (AUTO) 0 % (0-10); EOSINOPHILS % (AUTO) 0 % (0-10); HEMATOCRIT 39 % (40-54); HEMOGLOBIN 12.2 G/DL (13.3-17.7); LYMPHOCYTES # (AUTO) 1.1 X 10^3 (1.0-4.0); LYMPHOCYTES % (AUTO) 9 % (12-44); MEAN CORPUSCULAR HEMOGLOBIN 28 PG (25-34); MEAN CORPUSCULAR HGB CONC 31 G/DL (32-36); MEAN CORPUSCULAR VOLUME 91 FL (80-99); MEAN PLATELET VOLUME 9.6 FL (7.4-10.4); MONOCYTES # (AUTO) 1.2 X 10^3 (0.0-1.0); MONOCYTES % (AUTO) 9 % (0-12); NEUTROPHILS # (AUTO) 10.4 X 10^3 (1.8-7.8); NEUTROPHILS % (AUTO) 82 % (42-75); PLATELET COUNT 175 10^3/uL (130-400); WHITE BLOOD COUNT 12.7 10^3/uL (4.3-11.0)
[2019-09-13 14:29] LABS: PROTHROMBIN TIME PATIENT 13.6 SEC (12.2-14.7)
--- NOTE | 2019-09-13 14:35 | ED Lower Extremity ---
General Chief Complaint: Lower Extremity Stated Complaint: L KNEE PAIN Nursing Triage Note: PT TO [facility] BY [facility] FROM HOME WITH COMPLAINT OF LEFT KNEE PAIN AND SWELLING. PT HAD CELLULITIS ROUGHLY TWO WEEKS AGO AND WAS ADMITTED Nursing Sepsis Screen: No Definite Risk Source: patient Exam Limitations: no limitations History of Present Illness Date Seen by Provider: Sep 13, 2019 Time Seen by Provider: 14:33 Initial Comments To ER per EMS from home with reports of left thigh and knee pain. He had cellulitis about one to 2 weeks ago and was admitted. He is no longer on antibiotics. Denies fevers or chills, reports only pain. Onset: just prior to arrival Severity: moderate Pain/Injury Location: left leg Method of Injury: unknown Modifying Factors: Worse With Movement Allergies and Home Medications Allergies Coded Allergies: No Known Drug Allergies (Verified , 11/18/18) Home Medications Acetaminophen 650 Mg Tablet.er, 1,300 MG PO DAILY PRN for PAIN-MILD, (Reported) Amoxicillin/Potassium Clav 1 Each Tablet, 1 EACH PO BID Prescribed by: ANGELA LU on 09/13/19 1501 Apixaban 2.5 Mg Tablet, 2.5 MG PO DAILY, (Reported) Atorvastatin Calcium 10 Mg Tablet, 10 MG PO HS, (Reported) Calcitriol 0.25 Mcg Capsule, 0.25 MCG PO MoWeFr, (Reported) Calcium Carbonate 300 Mg Tab.chew, 600 MG PO TID, (Reported) Cefdinir 300 Mg Capsule, 300 MG PO BID Prescribed by: ANGELIKA REED on 08/31/19 1110 Clopidogrel Bisulfate 75 Mg Tablet, 75 MG PO DAILY, (Reported) Dulaglutide 0.75 Mg/0.5 Ml Pen.injctr, 0.75 MG SQ Mo, (Reported) Ergocalciferol (Vitamin D2) 50,000 Unit Capsule, 50,000 UNIT PO WEEK, (Reported) #12 FILLED 05-26-19 Insulin Detemir 100 Unit/1 Ml Insuln.pen, 30 UNIT SQ BID, (Reported) Insulin Lispro 100 Unit/1 Ml Cartridge, 16 UNIT SQ TIDAC Prescribed by: ANGELIKA REED on 08/31/19 1110 Metoprolol Succinate 50 Mg Tab.er.24h, 50 MG PO DAILY Prescribed by: ANGELIKA REED on 08/31/19 1110 Nitroglycerin 0.4 Mg Tab.subl, 0.4 MG SL UD PRN for CHEST PAIN, (Reported) Pantoprazole Sodium 40 Mg Tablet.dr, 40 MG PO DAILY, (Reported) Prednisone 5 Mg Tablet, 5 MG PO BID, (Reported) Tamsulosin HCl 0.4 Mg Cap, 0.4 MG PO DAILY, (Reported) Patient Home Medication List Home Medication List Reviewed: Yes Review of Systems Constitutional: see HPI; No chills, No fever EENTM: see HPI Respiratory: no symptoms reported Cardiovascular: no symptoms reported Genitourinary: no symptoms reported Musculoskeletal: see HPI Skin: see HPI Psychiatric/Neurological: No Symptoms Reported Past Iqxqbkk-Hsjagn-Hkxkxr Hx Patient Social History Alcohol Use: Past History Number of Drinks Today: Alcohol Beverage of Choice: Beer, Wine Recreational Drug Use: No Smoking Status: Former Smoker Type Used: Cigars, Cigarettes Former Smoker, Quit: Feb 20, 1958 2nd Hand Smoke Exposure: No Recent Foreign Travel: No Contact w/Someone Who Travel: No Recent Infectious Disease Expo: No Recent Hopitalizations: No Physical Abuse: No Sexual Abuse: No Mistreated: No Fear: No Immunizations Up To Date Tetanus Booster (TDap): Unknown PED Vaccines UTD: No Date of Pneumonia Vaccine: Jan 13, 2014 Date of Influenza Vaccine: Jul 23, 2019 Seasonal Allergies Seasonal Allergies: No Past Medical History Surgeries: Yes Bowel Surgery, Coronary Stent, Orthopedic Respiratory: No Currently Using CPAP: No Currently Using BIPAP: No Cardiac: Yes Coronary Artery Disease, Hypertension Neurological: No Genitourinary: Yes Benign Prostatic Hyperpl, Kidney Infection, Renal Failure Gastrointestinal: Yes Abdominal Hernia, Gastroesophageal Reflux, Gastrointestinal Bleed, Diverticu losis Musculoskeletal: Yes Arthritis, Rheumatoid Arthritis Endocrine: Yes Diabetes, Non-Insulin dep HEENT: Yes Macular Degeneration Cancer: No Psychosocial: No Integumentary: No Psoriasis Blood Disorders: No Adverse Reaction/Blood Tranf: No Family Medical History Diabetes mellitus 19 MOTHER G8 BROTHER FH: pancreatic cancer 19 FATHER Heart Disease, CAD Over 55 Years Old, Diabetes Physical Exam Vital Signs Vital Signs - First Documented 09/13/19 12:50 Pulse 94 Resp 16 B/P (MAP) 126/99 (108) Pulse Ox 96 O2 Delivery Room Air Capillary Refill : Less Than 3 Seconds Height, Weight, BMI Height: 5'7.00" Weight: 194lbs. 2.0oz. 88.586875bw; 29.00 BMI Method:Stated General Appearance: WD/WN, no apparent distress HEENT: PERRL/EOMI, normal ENT inspection Neck: non-tender, full range of motion Respiratory: no respiratory distress, no accessory muscle use Hips: bilateral hip non-tender, bilateral hip normal inspection, bilateral hip normal range of motion Legs: left leg pain, left leg soft tissue tenderness, left leg other (just superior to the knee there is a quarter sized to half-dollar sized area of erythema/firmness/tenderness to palpation. Inferior to the knee over the tibial tuberosity is another area like this. There is no erythema over the knee itself, no palpable effusion.) Knees: bilateral knee non-tender, bilateral knee normal inspection, bilateral knee normal range of motion Ankles: bilateral ankle non-tender, bilateral ankle normal inspection, bilate ral ankle normal range of motion Neurologic/Psychiatric: alert, normal mood/affect, oriented x 3 Skin: normal color, warm/dry He is already on Eliquis Progress/Results/Core Measures Results/Orders Lab Results Laboratory Tests Test 09/13/19 14:09 09/13/19 14:20 Range/Units White Blood Count 12.7 H 4.3-11.0 10^3/uL Red Blood Count 4.33 L 4.35-5.85 10^6/uL Hemoglobin 12.2 L 13.3-17.7 G/DL Hematocrit 39 L 40-54 % Mean Corpuscular Volume 91 80-99 FL Mean Corpuscular Hemoglobin 28 25-34 PG Mean Corpuscular Hemoglobin Concent 31 L 32-36 G/DL Red Cell Distribution Width 17.0 H 10.0-14.5 % Platelet Count 175 130-400 10^3/uL Mean Platelet Volume 9.6 7.4-10.4 FL Neutrophils (%) (Auto) 82 H 42-75 % Lymphocytes (%) (Auto) 9 L 12-44 % Monocytes (%) (Auto) 9 0-12 % Eosinophils (%) (Auto) 0 0-10 % Basophils (%) (Auto) 0 0-10 % Neutrophils # (Auto) 10.4 H 1.8-7.8 X 10^3 Lymphocytes # (Auto) 1.1 1.0-4.0 X 10^3 Monocytes # (Auto) 1.2 H 0.0-1.0 X 10^3 Eosinophils # (Auto) 0.0 0.0-0.3 10^3/uL Basophils # (Auto) 0.0 0.0-0.1 10^3/uL Prothrombin Time 13.6 12.2-14.7 SEC INR Comment 1.0 0.8-1.4 Sodium Level 135 135-145 MMOL/L Potassium Level 5.0 3.6-5.0 MMOL/L Chloride Level 115 H 98-107 MMOL/L Carbon Dioxide Level 12 L 21-32 MMOL/L Anion Gap 8 5-14 MMOL/L Blood Urea Nitrogen 64 H 7-18 MG/DL Creatinine 2.81 H 0.60-1.30 MG/DL Estimat Glomerular Filtration Rate 21 BUN/Creatinine Ratio 23 Glucose Level 270 H 70-105 MG/DL Calcium Level 8.5 8.5-10.1 MG/DL Corrected Calcium 8.9 8.5-10.1 MG/DL Total Bilirubin 0.9 0.1-1.0 MG/DL Aspartate Amino Transf (AST/SGOT) 18 5-34 U/L Alanine Aminotransferase (ALT/SGPT) 48 0-55 U/L Alkaline Phosphatase 144 H 40-136 U/L Total Protein 6.3 L 6.4-8.2 GM/DL Albumin 3.5 3.2-4.5 GM/DL Lactic Acid Level 1.25 0.50-2.00 MMOL/L My Orders Orders - ANGELA LU APRN Cbc With Automated Diff (09/13/19 13:24) Comprehensive Metabolic Panel (09/13/19 13:24) Blood Culture (09/13/19 13:24) Lactic Acid Analyzer (09/13/19 13:24) Protime With Inr (09/13/19 13:24) Ed Iv/Invasive Line Start (09/13/19 13:24) Ceftriaxone For Iv Use (Rocephin For I (09/13/19 14:45) Ns Iv 500 Ml (Sodium Chloride 0.9%) (09/13/19 14:45) Medications Given in ED Current Medications Medications Dose Ordered Sig/Adrienne Route Start Time Stop Time Status Last Admin Dose Admin Ceftriaxone Sodium 1000 mg/ Sterile Water 10 ml @ 200 mls/hr ONCE ONCE IV 09/13/19 14:45 09/13/19 14:47 DC 09/13/19 14:57 200 MLS/HR Vital Signs/I&O 09/13/19 12:50 Pulse 94 Resp 16 B/P (MAP) 126/99 (108) Pulse Ox 96 O2 Delivery Room Air Blood Pressure Mean: 108 Departure Communication (Admissions) SPoke with Dr Epstein, will give one dose of IV rocephin here, dc to home on oral antibiotics. Follow up with [facility] tomorrow at 9am with Krzysztof Rashid. Discussed the plan with the patient, he is unhappy with this. He states "I refuse to take any more pills. That's all I do is take a damn pill". I advised him that he needs the pills antibiotics for his cellulitis. He states "I refuse to take them". Discussed with him that he did not need admitted for this, he states he wants to be admitted for IV antibiotics because he doesn't like swallowing pills. I discussed with him that was an appropriate reason for admission. I also told him we have follow-[facility] arranged for [facility] and he states "no, I refuse to go there, all I do was run around all over the place". I then mentioned shelter placement with him and he states "no, that's one thing I will never do". He has become generally hateful and rude to all staff that into the room since finding out he would not be admitted. Impression Primary Impression: Left leg cellulitis Disposition: 01 HOME, SELF-CARE Condition: Improved Departure-Patient Inst. Decision time for Depature: 15:00 Referrals: [facility] (PCP) Primary Care Physician EVA TIMMONS (Family) Primary Care Physician Patient Instructions: Cellulitis (Skin Infection), Adult (DC) Add. Discharge Instructions: 1. Return to ER for any fever worsening pain or other concerns. Take the oral antibiotics as directed starting tomorrow. Your scheduled to see Krzysztof Rashid [facility] tomorrow for follow-up, Eva Timmons is out of town. He'll see him tomorrow at 9 AM for recheck. All discharge instructions reviewed with patient and/or family. Voiced understanding. Scripts Amoxicillin/Potassium Clav (Augmentin 875-125 Tablet) 1 Each Tablet 1 EACH PO BID, #14 TAB 0 Refills Prov: ANGELA LU APRN 09/13/19 Images Extremities-Lower 1 - Other-See Progress Note 2 - Other-See Progress Note Copy Copies To 1: KRISTA EPSTEIN MD, PETER J APRN Sep 13, 2019 14:35
[2019-09-13 14:36] LABS: ALBUMIN 3.5 GM/DL (3.2-4.5); BILIRUBIN,TOTAL 0.9 MG/DL (0.1-1.0); CALCIUM 8.5 MG/DL (8.5-10.1); CREATININE SERUM 2.81 MG/DL (0.60-1.30); TOTAL PROTEIN 6.3 GM/DL (6.4-8.2)
[2019-09-13] MEDS ORDERED: NS IV 500 ML 500 ML IV SCH (14:45)
[2019-09-13] MEDS ORDERED: cefTRIAXone FOR IV USE 1,000 MG in WATER (STERILE) FOR INJECTION 10 ML IV ONE (14:45)
[2019-09-13] MEDS ORDERED: AMOX-358 PO (15:01)
[2019-09-13 16:18] VITALS: BP 115/86
== END 2019-09-13 16:39 | disposition home or self-care (01) ==
LOC: EDUNIT# 12:48 → ER 12:48
DX: L03.116 Cellulitis of left lower limb (principal); I10 Essential (primary) hypertension; I25.10 Atherosclerotic heart disease of native coronary artery without angina pectoris; K21.9 Gastro-esophageal reflux disease without esophagitis; M06.9 Rheumatoid arthritis, unspecified; E11.9 Type 2 diabetes mellitus without complications; Z95.5 Presence of coronary angioplasty implant and graft; Z87.891 Personal history of nicotine dependence; Z79.01 Long term (current) use of anticoagulants; Z79.4 Long term (current) use of insulin; Z79.02 Long term (current) use of antithrombotics/antiplatelets; Z79.52 Long term (current) use of systemic steroids; Z80.0 Family history of malignant neoplasm of digestive organs
CPT/HCPCS: 36415; 80053; 83605; 85025; 85610; 87040; 96361; 96374

== ENCOUNTER 2019-09-20 14:45 | Inpatient (IN) | payer MEDICARE ==
[~2019-09-20] VITALS: Ht 167.5 cm; Wt 109.4 kg
[~2019-09-20 14:45] MED LIST changes: +AMOX-358 PO
[2019-09-20] MEDS ORDERED: CEFEPIME INJECTION 1,000 MG in WATER (STERILE) FOR INJECTION 10 ML IV ONE (15:00)
[2019-09-20] MEDS ORDERED: ASPIRIN 81 MG CHEW (CHILDREN'S ASA) PO ONE (15:00)
--- NOTE | 2019-09-20 15:03 | ED Chest Pain ---
General Stated Complaint: CHEST PAIN LOWER EXTREMITIES EDEMA Source: patient, EMS Exam Limitations: no limitations History of Present Illness Date Seen by Provider: Sep 20, 2019 Time Seen by Provider: 14:46 Initial Comments Patient presents to ER by EMS from home after home health saw him and thought that his leg swelling, wet cough shortness of breath and chest pain was concerning. He has a history of CAD with a stent placed by Dr. Clark as well as CHF. He says for the past 1-2 weeks he's had increased swelling in his legs shortness of breath and loose productive cough. He's had no fevers or chills. No nausea or sweats. He went and saw his doctor and they put him on some antibiotics but she still taking for his left leg but he does not they are. He says the chest pain started about 07:30 when he was sitting in his chair is in his right chest nonradiating and went away by noon on its own. He took some Tylenol for it. He does not take aspirin or nitroglycerin. He refused IV from EMS so the did not give him nitroglycerin or aspirin. He is not having any chest pain presently. He is having a little bit of discomfort in his left lower extremity. He has diabetes, hypertension but does not smoke. He has a history of atrial fibrillation on Eliquis. He is on 5 mg prednisone twice a day for rheumatoid arthritis. Allergies and Home Medications Allergies Coded Allergies: No Known Drug Allergies (Verified , 09/20/19) Home Medications Acetaminophen 650 Mg Tablet.er, 1,300 MG PO DAILY PRN for PAIN-MILD, (Reported) Amoxicillin/Potassium Clav 1 Each Tablet, 1 EACH PO BID Prescribed by: ANGELA LU on 09/13/19 1501 Apixaban 2.5 Mg Tablet, 2.5 MG PO DAILY, (Reported) Atorvastatin Calcium 10 Mg Tablet, 10 MG PO HS, (Reported) Calcitriol 0.25 Mcg Capsule, 0.25 MCG PO MoWeFr, (Reported) Calcium Carbonate 300 Mg Tab.chew, 600 MG PO TID, (Reported) Cefdinir 300 Mg Capsule, 300 MG PO BID Prescribed by: ANGELIKA REED on 08/31/19 1110 Clopidogrel Bisulfate 75 Mg Tablet, 75 MG PO DAILY, (Reported) Dulaglutide 0.75 Mg/0.5 Ml Pen.injctr, 0.75 MG SQ Mo, (Reported) Ergocalciferol (Vitamin D2) 50,000 Unit Capsule, 50,000 UNIT PO WEEK, (Reported) #12 FILLED 05-26-19 Insulin Detemir 100 Unit/1 Ml Insuln.pen, 30 UNIT SQ BID, (Reported) Insulin Lispro 100 Unit/1 Ml Cartridge, 16 UNIT SQ TIDAC Prescribed by: ANGELIKA REED on 08/31/19 1110 Metoprolol Succinate 50 Mg Tab.er.24h, 50 MG PO DAILY Prescribed by: ANGELIKA REED on 08/31/19 1110 Nitroglycerin 0.4 Mg Tab.subl, 0.4 MG SL UD PRN for CHEST PAIN, (Reported) Pantoprazole Sodium 40 Mg Tablet.dr, 40 MG PO DAILY, (Reported) Prednisone 5 Mg Tablet, 5 MG PO BID, (Reported) Tamsulosin HCl 0.4 Mg Cap, 0.4 MG PO DAILY, (Reported) Patient Home Medication List Home Medication List Reviewed: Yes Review of Systems Review of Systems Constitutional: No chills, No diaphoresis EENTM: No Blurred Vision, No Double Vision Respiratory: Cough, Orthopnea, SOA With Exertion; Denies Wheezing Cardiovascular: See HPI, Chest Pain, Edema, Irregular Heart Rate (history of atrial fibrillation), Palpitations; Denies Syncope Gastrointestinal: Denies Constipated Skin: see HPI; No change in color, No pruritus; rash Hematologic/Lymphatic: Easy Bleeding, Easy Bruising All Other Systems Reviewed Negative Unless Noted: Yes Past Zqveozk-Zoqfmw-Kmdsut Hx Patient Social History Alcohol Beverage of Choice: Beer, Wine Type Used: Cigars, Cigarettes Former Smoker, Quit: Feb 20, 1958 2nd Hand Smoke Exposure: No Recent Hopitalizations: No Immunizations Up To Date Tetanus Booster (TDap): Unknown PED Vaccines UTD: No Date of Pneumonia Vaccine: Jan 13, 2014 Date of Influenza Vaccine: Jul 23, 2019 Seasonal Allergies Seasonal Allergies: No Past Medical History Surgeries: Yes Bowel Surgery, Coronary Stent, Orthopedic Respiratory: No Currently Using CPAP: No Currently Using BIPAP: No Cardiac: Yes Coronary Artery Disease, Hypertension Neurological: No Genitourinary: Yes Benign Prostatic Hyperpl, Kidney Infection, Renal Failure Gastrointestinal: Yes Abdominal Hernia, Gastroesophageal Reflux, Gastrointestinal Bleed, Diverticulosis Musculoskeletal: Yes Arthritis, Rheumatoid Arthritis Endocrine: Yes Diabetes, Non-Insulin dep HEENT: Yes Macular Degeneration Cancer: No Psychosocial: No Integumentary: No Psoriasis Blood Disorders: No Adverse Reaction/Blood Tranf: No Family Medical History Diabetes mellitus 19 MOTHER G8 BROTHER FH: pancreatic cancer 19 FATHER Heart Disease, CAD Over 55 Years Old, Diabetes Physical Exam Vital Signs Vital Signs - First Documented 09/20/19 14:45 Temp 36.4 Pulse 109 Resp 22 B/P (MAP) 136/88 (104) Pulse Ox 98 O2 Delivery Room Air Capillary Refill : Height, Weight, BMI Height: 5'7.00" Weight: 194lbs. 2.0oz. 88.934104ig; 29.00 BMI Method:Stated General Appearance: WD/WN, Mild Distress HEENT: PERRL/EOMI, TMs Normal, Normal ENT Inspection, Pharynx Normal, Moist Mucous Membranes Neck: Full Range of Motion, Normal Inspection Respiratory: Lungs Clear, Normal Breath Sounds, No Accessory Muscle Use, No Respiratory Distress Cardiovascular: Irregularly Irregular Gastrointestinal: Normal Bowel Sounds, Non Tender, Soft Extremity: Normal Capillary Refill, Normal Range of Motion, Pedal Edema (bilaterally left worse than right), Swelling (left is warm erythematous and tender to palpation) Neurologic/Psychiatric: Alert, Oriented x3 Focused Exam Sepsis Stage: Sepsis Possible Source: Skin/Soft Tissue Lactate Level 09/20/19 15:15: Lactic Acid Level 1.66 Time of Focused Exam: 18:10 Respiratory: Lungs Clear, No Accessory Muscle Use, No Respiratory Distress, Rales (bilateral bases) Cardiovascular: No JVD, Normal Peripheral Pulses, Irregularly Irregular Capillary Refill: Less Than 3 Seconds Peripheral Pulses: 2+ Radial Pulses (R), 2+ Radial Pulses (L) Skin: other (erythematous, swollen tender hot skin on the left lower extremity) Lactic Acid Level Laboratory Tests Test 09/20/19 15:15 Lactic Acid Level 1.66 MMOL/L (0.50-2.00) Within 3hrs of presentation: Admin fluids, Admin ABX, Blood cultures prior to ABX's, Focus exam, Lactate level Progress/Results/Core Measures Results/Orders Lab Results Laboratory Tests Test 09/20/19 15:15 09/20/19 16:23 Range/Units White Blood Count 9.3 4.3-11.0 10^3/uL Red Blood Count 4.37 4.35-5.85 10^6/uL Hemoglobin 12.3 L 13.3-17.7 G/DL Hematocrit 39 L 40-54 % Mean Corpuscular Volume 88 80-99 FL Mean Corpuscular Hemoglobin 28 25-34 PG Mean Corpuscular Hemoglobin Concent 32 32-36 G/DL Red Cell Distribution Width 16.2 H 10.0-14.5 % Platelet Count 178 130-400 10^3/uL Mean Platelet Volume 9.8 7.4-10.4 FL Neutrophils (%) (Auto) 80 H 42-75 % Lymphocytes (%) (Auto) 11 L 12-44 % Monocytes (%) (Auto) 8 0-12 % Eosinophils (%) (Auto) 1 0-10 % Basophils (%) (Auto) 0 0-10 % Neutrophils # (Auto) 7.4 1.8-7.8 X 10^3 Lymphocytes # (Auto) 1.1 1.0-4.0 X 10^3 Monocytes # (Auto) 0.8 0.0-1.0 X 10^3 Eosinophils # (Auto) 0.1 0.0-0.3 10^3/uL Basophils # (Auto) 0.0 0.0-0.1 10^3/uL Prothrombin Time 13.7 12.2-14.7 SEC INR Comment 1.0 0.8-1.4 Activated Partial Thromboplast Time 30 24-35 SEC Sodium Level 138 135-145 MMOL/L Potassium Level 2.9 L 3.6-5.0 MMOL/L Chloride Level 108 H 98-107 MMOL/L Carbon Dioxide Level 16 L 21-32 MMOL/L Anion Gap 14 5-14 MMOL/L Blood Urea Nitrogen 68 H 7-18 MG/DL Creatinine 3.59 H 0.60-1.30 MG/DL Estimat Glomerular Filtration Rate 16 BUN/Creatinine Ratio 19 Glucose Level 280 H 70-105 MG/DL Lactic Acid Level 1.66 0.50-2.00 MMOL/L Calcium Level 8.5 8.5-10.1 MG/DL Corrected Calcium 9.0 8.5-10.1 MG/DL Total Bilirubin 0.6 0.1-1.0 MG/DL Aspartate Amino Transf (AST/SGOT) 16 5-34 U/L Alanine Aminotransferase (ALT/SGPT) 24 0-55 U/L Alkaline Phosphatase 116 40-136 U/L Troponin I 0.047 H <0.028 NG/ML C-Reactive Protein High Sensitivity 3.58 H 0.00-0.50 MG/DL B-Type Natriuretic Peptide 241.9 H <100.0 PG/ML Total Protein 6.4 6.4-8.2 GM/DL Albumin 3.4 3.2-4.5 GM/DL Urine Color YELLOW Urine Clarity CLEAR Urine pH 5.5 5-9 Urine Specific Wadley 1.015 L 1.016-1.022 Urine Protein TRACE NEGATIVE Urine Glucose (UA) TRACE H NEGATIVE Urine Ketones NEGATIVE NEGATIVE Urine Nitrite NEGATIVE NEGATIVE Urine Bilirubin NEGATIVE NEGATIVE Urine Urobilinogen 0.2 < = 1.0 MG/DL Urine Leukocyte Esterase NEGATIVE NEGATIVE Urine RBC (Auto) TRACE-I NEGATIVE Urine RBC NONE /HPF Urine WBC 0-2 /HPF Urine Squamous Epithelial Cells 0-2 /HPF Urine Crystals NONE /LPF Urine Bacteria TRACE /HPF Urine Casts NONE /LPF Urine Mucus NEGATIVE /LPF Urine Culture Indicated CULTURE PENDING Micro Results Microbiology 09/20/19 Influenza Types A,B Antigen (HUMBLE) - Final, Complete My Orders Orders - AQUILES LAWTON Cbc With Automated Diff (09/20/19 14:57) Comprehensive Metabolic Panel (09/20/19 14:57) Blood Culture (09/20/19 14:57) Sputum Culture (09/20/19 14:57) Urinalysis (09/20/19 14:57) Urine Culture (09/20/19 14:57) Protime With Inr (09/20/19 14:57) Partial Thromboplastin Time (09/20/19 14:57) Chest 1 View, Ap/Pa Only (09/20/19 14:57) Ed Iv/Invasive Line Start (09/20/19 14:57) Ed Iv/Invasive Line Start (09/20/19 14:57) Ekg Tracing (09/20/19 14:57) Troponin I (09/20/19 14:57) Vital Signs Adult Sepsis Patie Q15M (09/20/19 14:57) O2 (09/20/19 14:57) Remove Rings In Anticipation O (09/20/19 14:57) Lactic Acid Analyzer (09/20/19 14:57) Cefepime Injection (Maxipime Injection) (09/20/19 15:00) BNP (09/20/19 14:57) Aspirin Chewable Tablet (Baby Aspirin Ch (09/20/19 15:00) Hs C Reactive Protein (09/20/19 14:57) Influenza A And B Antigens (09/20/19 15:07) Albuterol/Ipra Inhalation Soln (Duoneb I (09/20/19 15:30) Svn Small Volume Nebulizer (09/20/19 15:23) Oseltamivir 75 Mg Capsule (Tamiflu 75 (09/20/19 16:15) Vancomycin 1 Gm Iv (1x Dose) (09/20/19 18:30) Medications Given in ED Current Medications Medications Dose Ordered Sig/Adrienne Route Start Time Stop Time Status Last Admin Dose Admin Albuterol/ Ipratropium 3 ml ONCE ONCE INH 09/20/19 15:30 09/20/19 15:31 DC 09/20/19 16:25 3 ML Aspirin 324 mg ONCE ONCE PO 09/20/19 15:00 09/20/19 15:01 DC 09/20/19 15:24 324 MG Cefepime HCl 1000 mg/Sterile Water 10 ml @ 200 mls/hr ONCE ONCE IV 09/20/19 15:00 09/20/19 15:02 DC 09/20/19 15:40 200 MLS/HR Oseltamivir Phosphate 75 mg ONCE ONCE PO 09/20/19 16:15 09/20/19 16:16 DC 09/20/19 17:00 75 MG Vital Signs/I&O 09/20/19 09/20/19 09/20/19 14:45 14:45 16:36 Temp 36.4 Pulse 109 Resp 22 B/P (MAP) 136/88 (104) Pulse Ox 98 93 O2 Delivery Room Air Room Air Room Air Progress Progress Note #1: Time: 15:06 Progress Note Chest pain workup as well as septic workup. He is tachycardic. He has a history of A. fib and he is in A. fib. We'll start with cefepime since he's diabetic. Possible cellulitis left lower extremity. We'll get a BNP decide whether the fluid in his lungs is from CHF exacerbation versus pneumonia. We'll get an influenza swab chest x-ray and hold off on IV fluids until we have some idea why he has fluid in his lungs. DVT unlikely since he has Eliquis on board. Progress Note #2: Time: 16:22 Progress Note Tamiflu given. Initial ECG Impression Date: Sep 20, 2019 Initial ECG Impression Time: 14:49 Initial ECG Rate: 98 Initial ECG Rhythm: A Fib/Flutter Initial ECG Intervals: Normal Initial ECG Impression: Normal, Nonspecific Changes Comment A. fib Diagnostic Imaging Diagonstic Imaging: Xray Plain Films/CT/US/NM/MRI: chest Comments NAME: JEANMARIE CABRERA [facility] REC#: [id number] PT STATUS: REG ER : 1932 PHYSICIAN: AQUILES LAWTON MD ADMIT DATE: 09/20/19/ER Signed Date of Exam:09/20/19 CHEST 1 VIEW, AP/PA ONLY INDICATION: Chest pain. Comparison made with prior examination from 08/26/2019. FINDINGS: There is cardiomegaly. There is some bibasilar subsegmental atelectasis and/or pneumonitis. There is no pleural effusion or pneumothorax. Mediastinum is unremarkable. IMPRESSION: Bibasilar subsegmental atelectasis and/or pneumonitis. Cardiomegaly. Dictated by: Dictated on workstation # [id number] Dict: 09/20/19 1547 Trans: 09/20/19 1608 [id number] Interpreted by: JOSE ESPINOZA MD Electronically signed by: JOSE ESPINOZA MD 09/20/19 1608 Reviewed: Reviewed by Me Departure Communication (Admissions) Time/Spoke to Admitting Phy: 18:00 Discussed case lab imaging findings with Dr. Wilde. Time/Spoke to Consulting Phy: 17:52 Discussed the case lab imaging EKG findings with Dr. Clark. This is a personal patient and he is familiar with him and his history. He says he used to be on dialysis but was taken off because he was doing so well. He would want to trend the troponin and see a significant increase before he would be concerned that it is anything other than related to his influenza and chronic kidney disease. Impression Primary Impression: Influenza B Additional Impressions: Hypoxia Elevated troponin I level Hypokalemia Cellulitis of left lower extremity Sepsis Qualified Codes: A41.9 - Sepsis, unspecified organism Disposition: ADMITTED INPATIENT Condition: Stable Admissions Decision to Admit Reason: Admit from ER (General) Decision to Admit/Date: Sep 20, 2019 Time/Decision to Admit Time: 17:00 Departure-Patient Inst. Referrals: [facility] (PCP/Family) Primary Care Physician AQUILES LAWTON Sep 20, 2019 15:03
[2019-09-20] MEDS ORDERED: RT-ALBUTEROL/IPRATROPIUM 3 ML (DUONEB) VIAL INH ONE (15:30)
[2019-09-20 15:39] LABS: BASOPHILS % (AUTO) 0 % (0-10); EOSINOPHILS # (AUTO) 0.1 10^3/uL (0.0-0.3); EOSINOPHILS % (AUTO) 1 % (0-10); HEMATOCRIT 39 % (40-54); HEMOGLOBIN 12.3 G/DL (13.3-17.7); LYMPHOCYTES # (AUTO) 1.1 X 10^3 (1.0-4.0); LYMPHOCYTES % (AUTO) 11 % (12-44); MEAN CORPUSCULAR HEMOGLOBIN 28 PG (25-34); MEAN CORPUSCULAR HGB CONC 32 G/DL (32-36); MEAN CORPUSCULAR VOLUME 88 FL (80-99); MEAN PLATELET VOLUME 9.8 FL (7.4-10.4); MONOCYTES # (AUTO) 0.8 X 10^3 (0.0-1.0); MONOCYTES % (AUTO) 8 % (0-12); NEUTROPHILS # (AUTO) 7.4 X 10^3 (1.8-7.8); NEUTROPHILS % (AUTO) 80 % (42-75); PLATELET COUNT 178 10^3/uL (130-400); RED CELL DISTRIBUTION WIDTH 16.2 % (10.0-14.5); WHITE BLOOD COUNT 9.3 10^3/uL (4.3-11.0)
--- NOTE | 2019-09-20 16:00 | Diagnostic Imaging Report ---
INDICATION: Chest pain. Comparison made with prior examination from 08/26/2019. FINDINGS: There is cardiomegaly. There is some bibasilar subsegmental atelectasis and/or pneumonitis. There is no pleural effusion or pneumothorax. Mediastinum is unremarkable. IMPRESSION: Bibasilar subsegmental atelectasis and/or pneumonitis. Cardiomegaly. Dictated by: Dictated on workstation # [id number]
[2019-09-20 16:05] LABS: ALBUMIN 3.4 GM/DL (3.2-4.5); BILIRUBIN,TOTAL 0.6 MG/DL (0.1-1.0); CALCIUM 8.5 MG/DL (8.5-10.1); CREATININE SERUM 3.59 MG/DL (0.60-1.30); POTASSIUM 2.9 MMOL/L (3.6-5.0); TOTAL PROTEIN 6.4 GM/DL (6.4-8.2)
[2019-09-20] MEDS ORDERED: OSELTAMIVIR 75 MG (TAMIFLU) CAPSULE PO ONE (16:15)
[2019-09-20 16:17] LABS: PROTHROMBIN TIME PATIENT 13.7 SEC (12.2-14.7)
[2019-09-20 16:28] LABS: BILIRUBIN,URINE NEGATIVE (NEGATIVE); CLARITY,URINE CLEAR; COLOR,URINE YELLOW; GLUCOSE, URINE (UA) TRACE (NEGATIVE); KETONES,URINE NEGATIVE (NEGATIVE); LEUKOCYTE ESTERASE ,URINE NEGATIVE (NEGATIVE); NITRITE,URINE NEGATIVE (NEGATIVE); PH,URINE 5.5 (5-9); PROTEIN,URINE TRACE (NEGATIVE)
[2019-09-20 17:02] LABS: BACTERIA,URINE TRACE /HPF; SQUAMOUS EPITHELIAL CELL,UR 0-2 /HPF; WBC,URINE 0-2 /HPF
[2019-09-20] MEDS ORDERED: VANCOMYCIN INJECTION 1,000 MG in NS (IVPB) 250 ML IV ONE (18:30)
--- NOTE | 2019-09-20 19:17 | NUR ---
REPORT RECEIVED FROM SHOLA HINOJOSA.
[2019-09-20 19:36] VITALS: BP 137/83
--- NOTE | 2019-09-20 19:36 | NUR ---
JEANMARIE CABRERA admitted to room 512-1, with an admitting diagnosis of INFLUENZA, HYPOXIA, ELEVATED TROPONIN, HYPOKALEMIA, CELLULITIS, SEPSIS, on 09/20/19 from [facility] via [facility], accompanied by SHOLA HINOJOSA. JEANMARIE CABRERA introduced to surroundings, call light, bed controls, phone, TV, temperature control, lights, meal times, smoking policy, visitor policy, side rail policy, bathrooms and showers. Patient Rights given to patient in the handbook. JEANMARIE CABRERA verbalizes understanding that [facility] is not responsible for the loss or damage to any personal effects or valuables that are kept in the patients possession during their hospitalization. Patient informed about the Rapid Response Team and its purpose.
[2019-09-20 20:00] VITALS: BP_SYST 121; BP_SYST 137; BP_DIAS 74; BP_DIAS 83
[2019-09-20] MEDS ORDERED: ACETAMINOPHEN 500 MG TAB (TYLENOL) PO PRN (20:15)
[2019-09-20] MEDS ORDERED: VANCOMYCIN 1 GM/NS 250 ML IVPB IV NR ×2 (20:24)
[2019-09-20] MEDS ORDERED: CATHETER FLUSH 10 ML SYR IV PRN (20:30)
--- NOTE | 2019-09-20 20:30 | NUR ---
THIS RN NOTIFIED BY [employer] OF INABILITY TO COMPLETE LAB DRAW DUE TO POOR VENOUS ACCESS. THIS RN INFORMED THAT ANOTHER VOCATIONAL REHAB CONSULTANT WILL BE ON SITE AT 2200.
[2019-09-20] MEDS ORDERED: VANCOMYCIN 1000 MG/VIAL ONE (20:33)
[2019-09-20] MEDS ORDERED: NS (IVPB) 0 ML ONE (20:33)
[2019-09-20] MEDS ORDERED: ONDANSETRON 4 MG/2 ML (SDV) Z0FRAN IVP PRN (20:45)
[2019-09-20] MEDS: NS IV 1000 ML 1,000 ML IV SCH (20:45)
[2019-09-20] MEDS: KCL 20 MEQ TAB (K-DUR) PO SCH (20:47)
[2019-09-20] MEDS: predniSONE 5 MG TAB PO SCH (20:47)
[2019-09-20] MEDS: APIXABAN 2.5 MG (ELIQUIS) TABLET PO SCH (20:47)
[2019-09-20] MEDS ORDERED: morphine INJ 4 MG/ML 1 ML (VIAL/SYRINGE) IV PRN (21:00)
[2019-09-20] MEDS ORDERED: NITROGLYCERIN 0.4 MG SL TABS BTL 25'S SL PRN (21:00)
[2019-09-20] MEDS: inSUlin ASPART (NovoLOG) 1 UNIT/0.01 ML (CHARGE PER UNIT) SC SCH (21:40)
[2019-09-20] MEDS: metroNIDAZOLE 500 MG/100 ML IVPB (PRE-MIX) IV SCH (22:21)
[2019-09-20 23:50] VITALS: BP 120/78
[2019-09-21] VITALS (7 sets, daily range): BP systolic 115–152; BP diastolic 67–88
--- NOTE | 2019-09-21 01:00 | Consultation-Cardiology ---
HPI-Cardiology Cardiology Consultation: Date of Consultation 09/20/19 Date of Admission Attending Physician Trixie Wilde DO Admitting Physician [place] Consulting Physician Abner CLARK MD HPI: Time Seen by a Provider: 18:30 Chief Complaint: Late entry; the patient was seen on 09/20/2019 at 6.30 p.m. Shortness of breath This is a 89-year-old gentleman who is well-known to me. I follow him regularly for cardiology. He has history of CAD with drug-eluting stent placed in the proximal LAD in October 2018. He also has history of atrial fibrillation and is on Eliquis. 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 Rheumatoid arthritis. History of diabetes and hypertension. Denies active smoking. No significant pertinent family history. He presents with worsening leg swelling, cough, shortness of breath and chest discomfort. It has been worsening in the last one to 2 weeks. No fever. Nonradiating chest pain. Self resolving. No chest pain when I saw the patient. Review of Systems-Cardiology Review of Systems Constitutional: As described under HPI; No As described under HPI, No no symptoms reported, No chills, No fever, No lightheadedness; malaise Eyes: No As described under HPI, No no symptoms reported, No blindness, No blurred vision, No contact lenses, No drainage, No decreased acuity, No foreign body sensation, No pain, No vision change Ears/Nose/Throat: No As described under HPI, No no symptoms reported, No chronic hearing loss, No ear discharge, No ear pain, No nasal drainage, No ulcerations Respiratory: No no symptoms reported; As described under HPI; No As described under HPI; cough; No orthopnea; shortness of breath; No SOB with excertion Cardiovascular: No no symptoms reported; As described under HPI; No As described under HPI; chest pain; No edema, No irregular heart rate, No lightheadedness, No palpitations Gastrointestinal: No no symptoms reported, No As described under HPI, No abdomen distended, No abdominal pain, No blood streaked bowels, No constipation, No diarrhea, No nausea, No vomiting, No stool coloration changes Genitourinary: No As described under HPI, No burning, No dysuria, No discharge, No frequency, No flank pain, No hematuria, No urgency Skin: No rash, No skin related problems, No ulcerations Psychiatric/Neurological: No anxiety, No depression, No seizure, No focal weakness, No syncope Hematologic: No bleeding abnormalities All Other Systems Reviewed Negative Unless Noted: Yes DIG-[id number]-Dviena Hx Patient Social History Alcohol Use: Denies Use Recreational Drug Use: No Smoking Status: Former Smoker Type Used: Cigars, Cigarettes 2nd Hand Smoke Exposure: No Recent Foreign Travel: No Recent Infectious Disease Expo: No Hospitalization with Isolation: Unknown Physical Abuse Screen: No Sexual Abuse: No Immunizations Up To Date Tetanus Booster (TDap): Unknown Date of Pneumonia Vaccine: Jan 13, 2014 Date of Influenza Vaccine: Jul 23, 2019 Past Medical History PMH As described under Assessment. Family Medical History Family History: Cardiovascular disease G8 BROTHER Diabetes mellitus 19 MOTHER G8 BROTHER FH: pancreatic cancer 19 FATHER Allergies and Home Medications Allergies Coded Allergies: No Known Drug Allergies (Verified , 09/20/19) Home Medications Acetaminophen 650 Mg Tablet.er, 1,300 MG PO DAILY PRN for PAIN-MILD, (Reported) Amoxicillin/Potassium Clav 1 Each Tablet, 1 TAB PO BID, (Reported) 10 DAY SUPPLY FILLED 09-14-19 Apixaban 2.5 Mg Tablet, 2.5 MG PO DAILY, (Reported) Atorvastatin Calcium 10 Mg Tablet, 10 MG PO HS, (Reported) Calcitriol 0.25 Mcg Capsule, 0.25 MCG PO MoWeFr, (Reported) Calcium Carbonate 300 Mg Tab.chew, 600 MG PO TID, (Reported) Clopidogrel Bisulfate 75 Mg Tablet, 75 MG PO DAILY, (Reported) Dulaglutide 0.75 Mg/0.5 Ml Pen.injctr, 0.75 MG SQ Mo, (Reported) Furosemide 40 Mg Tablet, 40 MG PO DAILY, (Reported) Insulin Detemir 100 Unit/1 Ml Insuln.pen, 30 UNIT SQ BID, (Reported) Insulin Lispro 100 Unit/1 Ml Insuln.pen, 16 UNIT SQ TIDAC, (Reported) Metoprolol Succinate 100 Mg Tab.er.24h, 100 MG PO DAILY, (Reported) Nitroglycerin 0.4 Mg Tab.subl, 0.4 MG SL UD PRN for CHEST PAIN, (Reported) Pantoprazole Sodium 40 Mg Tablet.dr, 40 MG PO DAILY, (Reported) Prednisone 5 Mg Tablet, 5 MG PO BID, (Reported) Tamsulosin HCl 0.4 Mg Cap, 0.4 MG PO DAILY, (Reported) Patient Home Medication List Home Medication List Reviewed: Yes Physical Exam-Cardiology Physical Exam Vital Signs/I&O 09/21/19 09/21/19 09/21/19 09/21/19 03:36 07:00 08:00 09:22 Temp 36.3 37.0 Pulse 102 100 88 Resp 18 20 B/P (MAP) 150/81 (104) 137/74 (95) Pulse Ox 93 95 O2 Delivery Room Air Room Air Room Air 09/21/19 09/21/19 09/21/19 12:53 13:00 13:49 Temp 36.1 36.1 Pulse 96 87 109 Resp 24 B/P (MAP) 115/67 (83) Pulse Ox 96 93 O2 Delivery Room Air FiO2 21 09/21/19 00:00 Intake Total 860 ml Output Total 225 ml Balance 635 ml Capillary Refill : Less Than 3 Seconds Constitutional: appears stated age, AAO x 3, apparent distress, well-developed, well-nourished HEENT: PERRL; No discharge; hearing is well preserved, oral hygience is good; No ulceration, No xanthelasmas are seen Neck: No carotid bruit; carotid pulses are 2 + bilaterally Respiratory: chest is bilaterally symmetric, rhonchi, wheezing, other (decreased air entry bilaterally) Cardiovascular: irregularly irregular, tachycardia, S1 and S2 Gastrointestinal: soft, audible bowel sounds; No spleenomegaly Rectal: deferred Extremities: non-tender, normal inspection; No clubbing, No cyanosis; signif icant edema Neurologic/Psychiatric: no motor/sensory deficits, alert, normal mood/affect, oriented x 3, power is 5/5 both on sides Skin: normal color, warm/dry, other (erythematous, swollen tender hot skin on the left lower extremity) Data Review Labs Laboratory Tests 09/20/19 16:23: Urine Color YELLOW, Urine Clarity CLEAR, Urine pH 5.5, Urine Specific [place] 1.015L, Urine Protein TRACE, Urine Glucose (UA) TRACEH, Urine Ketones NEGATIVE, Urine Nitrite NEGATIVE, Urine Bilirubin NEGATIVE, Urine Urobilinogen 0.2, Urine Leukocyte Esterase NEGATIVE, Urine RBC (Auto) TRACE-I, Urine RBC NONE, Urine WBC 0-2, Urine Squamous Epithelial Cells 0-2, Urine Crystals NONE, Urine Bacteria TRACE, Urine Casts NONE, Urine Mucus NEGATIVE, Urine Culture Indicated CULTURE PENDING 09/20/19 21:11: Glucometer 229H 09/20/19 22:22: Lactic Acid Level 2.90*H, Troponin I 0.042H 09/21/19 04:30: Troponin I 0.037H, White Blood Count 8.3, Red Blood Count 4.14L, Hemoglobin 11.6L, Hematocrit 37L, Mean Corpuscular Volume 90, Mean Corpuscular Hemoglobin 28, Mean Corpuscular Hemoglobin Concent 31L, Red Cell Distribution Width 16.3H, Platelet Count 175, Mean Platelet Volume 10.0, Neutrophils (%) (Auto) 81H, Lymphocytes (%) (Auto) 11L, Monocytes (%) (Auto) 8, Eosinophils (%) (Auto) 0, Basophils (%) (Auto) 0, Neutrophils # (Auto) 6.7, Lymphocytes # (Auto) 0.9L, Monocytes # (Auto) 0.7, Eosinophils # (Auto) 0.0, Basophils # (Auto) 0.0, Sodium Level 140, Potassium Level 3.9, Chloride Level 113H, Carbon Dioxide Level 14L, Anion Gap 13, Blood Urea Nitrogen 65H, Creatinine 3.32H, Estimat Glomerular Filtration Rate 18, BUN/Creatinine Ratio 20, Glucose Level 337H, Calcium Level 8.1L, Corrected Calcium 8.8, Total Bilirubin 0.4, Aspartate Amino Transf (AST/SGOT) 13, Alanine Aminotransferase (ALT/SGPT) 20, Alkaline Phosphatase 112, Total Protein 5.8L, Albumin 3.1L 09/21/19 10:28: Glucometer 186H Microbiology 09/20/19 Influenza Types A,B Antigen ([facility]) - Final, Complete ECG Impression ECG Initial ECG Impression: Atrial Fibrillation w/RVR A/P-Cardiology Assessment/Admission Diagnosis Acute influenza B, Acute respiratory failure, Lactic acidosis, Atrial fibrillation with RVR, Likely type II myocardial infarction, Acute On chronic kidney injury, CAD, PCI to the LAD with drug-eluting stent in October 2018, Acute diastolic congestive heart failure Plan Acute influenza B, defer to the primary team. Multiorgan involvement. With severe systemic manifestations including type II myocardial infarction and lactic acidosis. Acute respiratory failure, Lactic acidosis, Atrial fibrillation with RVR, continue Eliquis. Likely type II myocardial infarction, serial troponin. Acute On chronic kidney injury, IV fluids. CAD, PCI to the LAD with drug-eluting stent in October 2018, continue Plavix, atorvastatin. I will like to hold off with coronary angiography as long as I can. Since his borderline troponin could be type II myocardial infarction due to severe sepsis related to influenza. Also acute on chronic kidney injury may be significantly worsen with contrast given during coronary angiography. I discussed with the patient and family and they both concur. Acute diastolic congestive heart failure, for now the patient requires IV fluids due to sepsis with lactic acidosis. Complicated patient with numerous active medical issues as above. Thank you for your consultation. Please call me if you have any questions. Mireille Clark MD, FACP, FACC, FSCAI, FHRS, CCDS Interventional Cardiology Cardiac Electrophysiology Vascular Medicine and Endovascular Interventions Clinical Quality Measures AMI/AHF: ASA po Prior to arrival: No DVT/VTE Risk/Contraindication: Risk Factor Score Per Nursin RFS Level Per Nursing on Admit: 4+=Very High Abner CLARK MD Sep 21, 2019 01:00
[2019-09-21] MEDS: CEFEPIME 1,000 MG/SWFI 10 ML IV PUSH IV SCH ×4 (02:37→15:15)
[2019-09-21] MEDS: NS IV 1000 ML 1,000 ML IV SCH ×2 (04:36→08:29)
[2019-09-21 04:50] LABS: BASOPHILS % (AUTO) 0 % (0-10); EOSINOPHILS % (AUTO) 0 % (0-10); HEMATOCRIT 37 % (40-54); HEMOGLOBIN 11.6 G/DL (13.3-17.7); LYMPHOCYTES # (AUTO) 0.9 X 10^3 (1.0-4.0); LYMPHOCYTES % (AUTO) 11 % (12-44); MEAN CORPUSCULAR HEMOGLOBIN 28 PG (25-34); MEAN CORPUSCULAR HGB CONC 31 G/DL (32-36); MEAN CORPUSCULAR VOLUME 90 FL (80-99); MONOCYTES # (AUTO) 0.7 X 10^3 (0.0-1.0); MONOCYTES % (AUTO) 8 % (0-12); NEUTROPHILS # (AUTO) 6.7 X 10^3 (1.8-7.8); NEUTROPHILS % (AUTO) 81 % (42-75); PLATELET COUNT 175 10^3/uL (130-400); RED CELL DISTRIBUTION WIDTH 16.3 % (10.0-14.5); WHITE BLOOD COUNT 8.3 10^3/uL (4.3-11.0)
[2019-09-21 05:16] LABS: ALBUMIN 3.1 GM/DL (3.2-4.5); BILIRUBIN,TOTAL 0.4 MG/DL (0.1-1.0); CALCIUM 8.1 MG/DL (8.5-10.1); CREATININE SERUM 3.32 MG/DL (0.60-1.30); POTASSIUM 3.9 MMOL/L (3.6-5.0); TOTAL PROTEIN 5.8 GM/DL (6.4-8.2)
[2019-09-21] MEDS: inSUlin ASPART (NovoLOG) 1 UNIT/0.01 ML (CHARGE PER UNIT) SC SCH ×7 (06:04→22:23)
[2019-09-21] MEDS: metroNIDAZOLE 500 MG/100 ML IVPB (PRE-MIX) IV SCH ×2 (08:29→22:24)
[2019-09-21] MEDS: PANTOPRAZOLE 40 MG (PROTONIX) TAB PO SCH (08:30)
[2019-09-21] MEDS: ASPIRIN E.C. 81 MG (ECOTRIN) TAB PO SCH (08:30)
[2019-09-21] MEDS: OSELTAMIVIR 30 MG (TAMIFLU) CAPSULE PO SCH (08:30)
[2019-09-21] MEDS: meTOproloL SUCCINATE 50 MG (TOPROL XL) TAB PO SCH (08:30)
[2019-09-21] MEDS: predniSONE 5 MG TAB PO SCH ×2 (08:30→22:24)
[2019-09-21] MEDS: APIXABAN 2.5 MG (ELIQUIS) TABLET PO SCH ×2 (08:30→22:23)
[2019-09-21] MEDS: KCL 20 MEQ TAB (K-DUR) PO SCH ×2 (08:30→17:16)
--- NOTE | 2019-09-21 08:54 | Diagnostic Imaging Report ---
INDICATION: Hypoxia. COMPARISON: 09/20/2019. FINDINGS: There is cardiomegaly and some venous congestion. There are bibasilar infiltrates. There is no pneumothorax. IMPRESSION: Patchy bibasilar pulmonary infiltrates. Cardiomegaly and some central pulmonary venous congestion. Dictated by: Dictated on workstation # [id number]
--- NOTE | 2019-09-21 10:46 | NUR ---
CM/SS visited with patient to assist with any needs. Home Health Agency: The patient is already connected with [facility] and will resume care when discharged. Summary: The patient reported that he has home health currently and has had it in the past for medical issues and would like to continue when discharged. The patient reported that he did not have any other needs currently. CM/SS called [facility] to notify of the hospital admission and that CM/SS will notify the agency upon patients discharge. They verbalized understanding and thanked SS for the call. Will continue to follow.
[2019-09-21] MEDS ORDERED: INSU100I23 SQ (10:55)
[2019-09-21] MEDS ORDERED: METO-395 PO (10:55)
[2019-09-21] MEDS ORDERED: FURO40TA4 PO (10:55)
[2019-09-21] MEDS ORDERED: INSU100V SQ (10:55)
[2019-09-21] MEDS ORDERED: AMOX-358 PO (11:00)
--- NOTE | 2019-09-21 11:00 | History & Physical-Hospitalist ---
History of Present Illness HPI/Chief Complaint Chief complaint: Influenza B with wheezing and hypoxia History of present illness: This is a very complicated 89-year-old white male who is in the hospital a lot for multitude of medical problems including end- stage renal disease previously on hemodialysis baseline creatinine 3.5 and recurrent left lower extremity cellulitis along with hypertension and severe arthritis prednisone-dependent who presented to the ER with fever and cough found to have influenza B and elevated creatinine with chest pain in need of Cardiology evaluation and Tamiflu and close monitoring for decompensation. Patient is DO NOT RESUSCITATE and his prognosis has been poor for several years and he is in the hospital about every 2 weeks. He reports that the cough is about the same reports chest pain when he coughs and his creatinine did improve a little bit to 3.3 on supportive IV fluids but he does become volume overloaded very quickly. Cardiology has been consulted. Lactic acid did become elevated a she was maintain on IV fluids but could not increase fluids due to volume overload status on a chronic basis. Source: patient, RN/MD, old records Exam Limitations: no limitations Date Seen 09/21/19 Time Seen by a Provider: 09:00 Attending Physician Trixie Wilde DO [facility] Referring Physician Date of Admission Sep 20, 2019 at 18:00 Home Medications & Allergies Home Medications Reviewed patient Home Medication Reconciliation performed by pharmacy medication reconciliations finishing technician and/or nursing. Patients Allergies have been reviewed. Allergies Allergies Coded Allergies No Known Drug Allergies (Lspphayn30/30/19) Past Atagdab-Ieaimb-Nitatg Hx Past Med/Social Hx: Reviewed Nursing Past Med/Soc Hx, Reviewed and Corrections made Patient Social History Marrital Status: single Employed/Student: retired Alcohol Use: Denies Use Number of Drinks Today: Alcohol Beverage of Choice: Beer, Wine Recreational Drug Use: No Smoking Status: Former Smoker Former Smoker, Quit: Feb 20, 1958 Type Used: Cigars, Cigarettes 2nd Hand Smoke Exposure: No Physical Abuse Screen: No Sexual Abuse: No Recent Foreign Travel: No Contact w/other who traveled: No Recent Hopitalizations: Yes (AUGUST 2019) Recent Infectious Disease Expo: No Immunizations Up To Date Tetanus Booster (TDap): Unknown Pediatric: No Date of Pneumonia Vaccine: Jan 13, 2014 Date of Influenza Vaccine: Jul 23, 2019 Seasonal Allergies Seasonal Allergies: No Past Medical History Surgeries: Bowel Surgery, Coronary Stent, Orthopedic Respiratory: COPD Currently Using CPAP: No Currently Using BIPAP: No Cardiac: Coronary Artery Disease, Hypertension Sexually Transmitted Disease: No HIV/AIDS: No Genitourinary: Benign Prostatic Hyperpl, Kidney Infection, Renal Failure Gastrointestinal: Abdominal Hernia, Gastroesophageal Reflux, Gastrointestinal Bleed, Diverticulosis Musculoskeletal: Arthritis, Rheumatoid Arthritis Endocrine: Diabetes, Non-Insulin dep Are Your Blood Sugars Over 250: No HEENT: Cataract, Macular Degeneration Loss of Vision: Left Hearing Impairment: Hard of Hearing Psychosocial: Depression Skin/Integumentary: Psoriasis History of Blood Disorders: No Adverse Reaction to Blood Baker: No Family History Cardiovascular disease G8 BROTHER Diabetes mellitus 19 MOTHER G8 BROTHER FH: pancreatic cancer 19 FATHER Heart Disease, CAD Over 55 Years Old, Diabetes Review of Systems Constitutional: malaise, weakness Respiratory: cough Cardiovascular: chest pain Musculoskeletal: joint pain Physical Exam Physical Exam Vital Signs Vital Signs - First Documented 09/20/19 14:45 Temp 36.4 Pulse 109 Resp 22 B/P (MAP) 136/88 (104) Pulse Ox 98 O2 Delivery Room Air Capillary Refill : Less Than 3 Seconds Height, Weight, BMI Height: 5'7.00" Weight: 194lbs. 2.0oz. 88.267333gk; 34.07 BMI Method:Stated General Appearance: No Apparent Distress, WD/WN, Anxious, Chronically ill, Obese, Other (severe chronic illness) Eyes: Right Eye Normal Inspection, Right Eye PERRL HEENT: PERRL/EOMI, Normal ENT Inspection, Pharynx Normal, Moist Mucous Me mbranes Neck: Full Range of Motion, Normal Inspection, Non Tender Respiratory: Chest Non Tender, No Accessory Muscle Use, No Respiratory Distress, Crackles, Decreased Breath Sounds, Wheezing Cardiovascular: No Edema, No Gallop, No JVD, No Murmur, Normal Peripheral Pulses, Irregularly Irregular Gastrointestinal: Normal Bowel Sounds, No Organomegaly, No Pulsatile Mass, Non Tender, Soft Back: Normal Inspection, No CVA Tenderness, No Vertebral Tenderness Extremity: Normal Capillary Refill, Normal Inspection, Normal Range of Motion, Non Tender, No Calf Tenderness, No Pedal Edema Neurologic/Psychiatric: Alert, Oriented x3, No Motor/Sensory Deficits, testing and regulating chief II- XII Norm as Tested, Depressed Affect Skin: Normal Color, Warm/Dry Lymphatic: No Adenopathy Results Results/Procedures Labs Laboratory Tests 09/20/19 15:15 12/31/19 04:30 Patient resulted labs reviewed. Assessment/Plan Admission Diagnosis Assessment: Acute influenza B Hypoxia Wheezing Chest pain CAD Acute on chronic renal failure Colostomy status Hypertension Prednisone-dependent arthritis Plan: Home meds Monitor creatinine Tamiflu IV fluids Oxygen Nebulizers Supportive care DO NOT RESUSCITATE Prognosis guarded Admission Status: Inpatient Order (span 2 midnights) Reason for Inpatient Admission: Influenza B with hypoxia and renal failure Diagnosis/Problems Diagnosis/Problems (1) Influenza B Status: Acute (2) Elevated troponin I level Status: Acute (3) Sepsis Status: Acute Qualifiers: Sepsis type: sepsis due to unspecified organism Sepsis acute organ dysfunction status: unspecified Qualified Codes: A41.9 - Sepsis, unspecified organism (4) Hypoxia Status: Acute (5) Hypokalemia Status: Acute (6) Acute renal failure superimposed on stage 3 chronic kidney disease Status: Acute (7) DVT prophylaxis Status: Acute (8) Colostomy care Status: Chronic (9) Hypertension Status: Chronic (10) Chronic atrial fibrillation Status: Chronic (11) Generalized weakness Status: Acute (12) Dyspnea (13) COPD with acute exacerbation Status: Acute (14) Anemia (15) CAD (coronary artery disease) Status: Chronic (16) Diabetes mellitus Status: Chronic (17) Stented coronary artery Status: Acute (18) Volume depletion Status: Acute Clinical Quality Measures AMI/AHF: ASA po Prior to arrival: No DVT/VTE Risk/Contraindication: Risk Factor Score Per Nursin RFS Level Per Nursing on Admit: 4+=Very High TRIXIE WILDE DO Sep 21, 2019 11:00
--- NOTE | 2019-09-21 11:01 | NUR ---
WENT OVER THE MEDICATION LIST IN DETAIL WITH THE PATIENTS DAUGHTER JUVENTINO AT HIS ADMISSION EARLIER THIS MONTH ON . SEE PREVIOUS NOTE FOR DETAILS OF FILL DATES. I CALLED JUVENTINO TODAY TO GO OVER ANY CHANGES THAT HAVE BEEN MADE SINCE HIS ADMISSION AT THE BEGINNING OF THE MONTH. SHE STATES HE WAS DISCHARGED ON AN ANTIBIOTIC (CEFDINIR) THAT WAS COMPLETED. THEY THEN WERE SEEN IN THE ER AND PRESCRIBED ANOTHER ANTIBIOTIC BUT IT WAS SENT THE [facility] AND THEY WOULD NOT FILL THAT SCRIPT FROM THE ED. THE PATIENT WAS TO BE SEEN AT THE CLINIC THE FOLLOWING DAY SO THEY DID NOT HAVE IT TRANSFERRED OR FILLED ELSEWHERE. I CALLED [facility] AND VERIFIED THE NEXT DAY THEY FILLED AUGMENTIN 875MG BID #20 ON 09-14-19. AT THE DISCHARGE FROM THE LASIX AND POTASSIUM WERE DISCONTINUED. JUVENTINO STATES THE PATIENT DOES NOT TAKE THE POTASSIUM BECAUSE IT IS TOO LARGE TO SWALLOW BUT HE HAS BEEN TAKING THE LASIX DAILY, IT WAS LAST FILLED 40MG #30 09-06-19. I ADDED LASIX BACK TO THE MED REC AT THIS TIME. ALSO, AT THE DISCHARGE ON THE METOPROLOL XL 100MG BID WAS CHANGED TO METOPROLOL XL 50MG DAILY, [facility] DOSE WAS F[facility] AND PICKED UP THAT DAY HOWEVER JUVENTINO STATES SHE HAD PAPERWORK WITH CONFLICTING INFORMATION AND SHE HAS BEEN GIVING HIM 100MG ER ONCE DAILY. I UPDATED THE MED REC TO REFLECT THIS DOSE, SHE STATES SHE WILL FOLLOW UP WITH TO SEE IF THEY WANT IT CHANGED FROM WHAT THEY HAVE BEEN DOING THE PAST FEW WEEKS. SHE VERIFIED AT THIS TIME THE PATIENT IS NO LONGER TAKING THE VITAMIN D WEEKLY DOSE.
[2019-09-21] MEDS ORDERED: methylPREDNISolone 40 MG/ML (Solu-MEDROL) VIAL IV NR (11:47)
--- NOTE | 2019-09-21 12:11 | NUR ---
"RD ASSESSMENT PMHx: CAD; HTN; GERD; DM; diverticulosis PT INTERACTION: Pt was awake and pleasant during consult for MST score. Pt states current appetite is good and has been for a while. Note PO intake of 100% x1meal, per chart review. Pt states following a regular diet at home, and has no issues with chewing/swallowing food. Pt states no recent issues with n/v/c/d at this time, and that his ostomy output is good. Pt states recent wt changes as being at 236# in 11/10, and 174# in 04/09. Note pt current wt of 207#, per chart review. Given pt's PO intake and wt hx, pt is not at risk for malnutrition per ASPEN guidelines. ABNORMAL NUTRITION-RELATED LAB VALUES LOW: Ca 8.1; Pro 5.8; alb 3.1 HIGH: Cl 113; BUN 65; cr 3.32; glu 337 Est. kcal needs: 3069-2796 kcal | 20-25 kcal/kg Est. Pro needs: 75-94 g Pro | 0.8-1.0 g Pro/kg PES STATEMENT: Given pt's PO intake, no nutrition diagnosis at this time (NO-1.1) INTERVENTION: Continue with current diet order of CHO 60g/m 1snack diet. Will continue to follow and reassess as pt needs and status change. MONITOR/EVALUATE: PO Intake; Plan of Care; Hydration Status; Weight Status; Lab Values Herman Neumann, MS, RD, LD"
[2019-09-21] MEDS ORDERED: RT-ALBUTEROL/IPRATROPIUM 3 ML (DUONEB) VIAL INH PRN (14:00)
--- NOTE | 2019-09-21 15:38 | Cardiology Progress Note ---
Cardiology SOAP Progress Note Subjective: Still has shortness of breath. Patient says he is not feeling well. Objective: I&O/Vital Signs 09/21/19 09/21/19 09/21/19 09/21/19 07:00 08:00 09:22 12:53 Temp 37.0 36.1 Pulse 100 88 96 Resp 20 24 B/P (MAP) 137/74 (95) 115/67 (83) Pulse Ox 95 96 O2 Delivery Room Air Room Air Room Air 09/21/19 09/21/19 13:00 13:49 Temp 36.1 Pulse 87 109 Pulse Ox 93 FiO2 21 09/21/19 00:00 Intake Total 860 ml Output Total 225 ml Balance 635 ml Weight (Pounds): 194 Weight (Ounces): 2.0 Weight (Calculated Kilograms): 88.739775 Constitutional: appears stated age, AAO x 3, apparent distress, well-developed, well-nourished Respiratory: chest is bilaterally symmetric, rhonchi, wheezing, other (decreased air entry bilaterally) Cardiovascular: irregularly irregular, tachycardia, S1 and S2 Gastrointestional: soft, audible bowel sounds; No spleenomegaly Extremities: non-tender, normal inspection; No clubbing, No cyanosis; significant edema Neurologic/Psychiatric: no motor/sensory deficits, alert, normal mood/affect, oriented x 3, power is 5/5 both on sides Skin: normal color, warm/dry, other (erythematous, swollen tender hot skin on the left lower extremity) Results/Procedures: Labs Laboratory Tests 09/20/19 16:23: Urine Color YELLOW, Urine Clarity CLEAR, Urine pH 5.5, Urine Specific Corder 1.015L, Urine Protein TRACE, Urine Glucose (UA) TRACEH, Urine Ketones NEGATIVE, Urine Nitrite NEGATIVE, Urine Bilirubin NEGATIVE, Urine Urobilinogen 0.2, Urine Leukocyte Esterase NEGATIVE, Urine RBC (Auto) TRACE-I, Urine RBC NONE, Urine WBC 0-2, Urine Squamous Epithelial Cells 0-2, Urine Crystals NONE, Urine Bacteria TRACE, Urine Casts NONE, Urine Mucus NEGATIVE, Urine Culture Indicated CULTURE PENDING 09/20/19 21:11: Glucometer 229H 09/20/19 22:22: Lactic Acid Level 2.90*H, Troponin I 0.042H 09/21/19 04:30: Troponin I 0.037H, White Blood Count 8.3, Red Blood Count 4.14L, Hemoglobin 1 1.6L, Hematocrit 37L, Mean Corpuscular Volume 90, Mean Corpuscular Hemoglobin 28, Mean Corpuscular Hemoglobin Concent 31L, Red Cell Distribution Width 16.3H, Platelet Count 175, Mean Platelet Volume 10.0, Neutrophils (%) (Auto) 81H, Lymphocytes (%) (Auto) 11L, Monocytes (%) (Auto) 8, Eosinophils (%) (Auto) 0, Basophils (%) (Auto) 0, Neutrophils # (Auto) 6.7, Lymphocytes # (Auto) 0.9L, Monocytes # (Auto) 0.7, Eosinophils # (Auto) 0.0, Basophils # (Auto) 0.0, Sodium Level 140, Potassium Level 3.9, Chloride Level 113H, Carbon Dioxide Level 14L, Anion Gap 13, Blood Urea Nitrogen 65H, Creatinine 3.32H, Estimat Glomerular Filtration Rate 18, BUN/Creatinine Ratio 20, Glucose Level 337H, Calcium Level 8.1L, Corrected Calcium 8.8, Total Bilirubin 0.4, Aspartate Amino Transf (AST/SGOT) 13, Alanine Aminotransferase (ALT/SGPT) 20, Alkaline Phosphatase 112, Total Protein 5.8L, Albumin 3.1L 09/21/19 10:28: Glucometer 186H Microbiology 09/20/19 Influenza Types A,B Antigen (HUMBLE) - Final, Complete A/P: Assessment/Dx: Acute influenza B, Acute respiratory failure, Lactic acidosis, Atrial fibrillation with RVR, Likely type II myocardial infarction, Acute On chronic kidney injury, CAD, PCI to the LAD with drug-eluting stent in October 2018, Acute diastolic congestive heart failure Plan: Acute influenza B, defer to the primary team. Multiorgan involvement. With severe systemic manifestations including type II myocardial infarction and lactic acidosis. Acute respiratory failure, Lactic acidosis, Atrial fibrillation with RVR, continue Eliquis. Likely type II myocardial infarction, serial troponin. Acute On chronic kidney injury, IV fluids. CAD, PCI to the LAD with drug-eluting stent in October 2018, continue Plavix, atorvastatin. I will like to hold off with coronary angiography as long as I can. Since his borderline troponin could be type II myocardial infarction due to severe sepsis related to influenza. Also acute on chronic kidney injury may be significantly worsen with contrast given during coronary angiography. I discussed with the patient and family and they both concur. Acute diastolic congestive heart failure, for now the patient requires IV fluids due to sepsis with lactic acidosis. Complicated patient with numerous active medical issues as above. Thank you for your consultation. Please call me if you have any questions. Mireille Clark MD, FACP, FACC, FSCAI, FHRS, CCDS Interventional Cardiology Cardiac Electrophysiology Vascular Medicine and Endovascular Interventions Focused Exam Lactate Level 09/20/19 15:15: Lactic Acid Level 1.66 09/20/19 22:22: Lactic Acid Level 2.90*H Time of Focused Exam: 18:10 Clinical Quality Measures AMI/AHF: ASA po Prior to arrival: Abner Nolasco MD Sep 21, 2019 15:38
[2019-09-21] MEDS: TAMSULOSIN 0.4 MG (FLOMAX) CAP PO SCH (17:16)
[2019-09-21] MEDS: RT-ALBUTEROL/IPRATROPIUM 3 ML (DUONEB) VIAL INH SCH (18:38)
[2019-09-21] MEDS ORDERED: TROUGH ORDER-PHARMACY XX NR (19:30)
[2019-09-21] MEDS ORDERED: VANCOMYCIN 1 GM/NS 250 ML IVPB IV SCH ×2 (21:00)
[2019-09-22] VITALS (7 sets, daily range): BP systolic 109–164; BP diastolic 68–94
--- NOTE | 2019-09-22 00:15 | NUR ---
RECEIVED REPORT FROM SHOLA GAMING. THIS RN TO ASSUME CARE OF PT AT THIS TIME.
[2019-09-22] MEDS: CEFEPIME 1,000 MG/SWFI 10 ML IV PUSH IV SCH ×4 (02:09→15:59)
[2019-09-22 04:14] LABS: BASOPHILS % (AUTO) 0 % (0-10); EOSINOPHILS % (AUTO) 0 % (0-10); HEMATOCRIT 36 % (40-54); HEMOGLOBIN 11.2 G/DL (13.3-17.7); LYMPHOCYTES # (AUTO) 0.9 X 10^3 (1.0-4.0); LYMPHOCYTES % (AUTO) 8 % (12-44); MEAN CORPUSCULAR HEMOGLOBIN 28 PG (25-34); MEAN CORPUSCULAR HGB CONC 31 G/DL (32-36); MEAN CORPUSCULAR VOLUME 91 FL (80-99); MEAN PLATELET VOLUME 10.2 FL (7.4-10.4); MONOCYTES # (AUTO) 0.5 X 10^3 (0.0-1.0); MONOCYTES % (AUTO) 5 % (0-12); NEUTROPHILS # (AUTO) 9.8 X 10^3 (1.8-7.8); NEUTROPHILS % (AUTO) 87 % (42-75); PLATELET COUNT 179 10^3/uL (130-400); RED CELL DISTRIBUTION WIDTH 16.2 % (10.0-14.5); WHITE BLOOD COUNT 11.3 10^3/uL (4.3-11.0)
[2019-09-22] MEDS: RT-ALBUTEROL/IPRATROPIUM 3 ML (DUONEB) VIAL INH SCH ×7 (04:19→21:55)
[2019-09-22 04:32] LABS: BILIRUBIN,TOTAL 0.3 MG/DL (0.1-1.0); CALCIUM 7.9 MG/DL (8.5-10.1); POTASSIUM 5.5 MMOL/L (3.6-5.0); TOTAL PROTEIN 5.8 GM/DL (6.4-8.2)
[2019-09-22] MEDS: NS IV 1000 ML 1,000 ML IV SCH (04:51)
[2019-09-22] MEDS: inSUlin ASPART (NovoLOG) 1 UNIT/0.01 ML (CHARGE PER UNIT) SC SCH ×7 (06:07→20:55)
[2019-09-22] MEDS: KCL 20 MEQ TAB (K-DUR) PO SCH (06:08)
--- NOTE | 2019-09-22 06:08 | NUR ---
40MEQ POTASSIUM NON-ADMINISTERED DUE TO PT'S POTASSIUM LEVEL AT 5.5.
--- NOTE | 2019-09-22 07:31 | NUR ---
Mamie - 09/21 1930 trough = 27. Hold Dianeo, will repeat trough 09/22 @ 0900.
[2019-09-22] MEDS: OSELTAMIVIR 30 MG (TAMIFLU) CAPSULE PO SCH (07:41)
[2019-09-22] MEDS: APIXABAN 2.5 MG (ELIQUIS) TABLET PO SCH ×2 (07:41→20:54)
[2019-09-22] MEDS: ASPIRIN E.C. 81 MG (ECOTRIN) TAB PO SCH (07:41)
[2019-09-22] MEDS: metroNIDAZOLE 500 MG/100 ML IVPB (PRE-MIX) IV SCH ×2 (07:42→20:54)
[2019-09-22] MEDS: meTOproloL SUCCINATE 50 MG (TOPROL XL) TAB PO SCH (07:42)
[2019-09-22] MEDS: predniSONE 5 MG TAB PO SCH ×2 (07:42→20:54)
[2019-09-22] MEDS: PANTOPRAZOLE 40 MG (PROTONIX) TAB PO SCH (07:42)
[2019-09-22] MEDS ORDERED: TROUGH ORDER-PHARMACY XX NR (09:00)
--- NOTE | 2019-09-22 10:06 | NUR ---
Vanco - trough of 09/22/19 @ 09, level negligible. Will restart Vanco at 500mg every 24 hours. First dose 09/22 noon. Addendum: 09/22/19 at 1008 by DAVID GUNN [facility] Dose correction - will restart Vanco at 750mg every 24 hours. First dose 09/22 noon.
[2019-09-22] MEDS ORDERED: FUROSEMIDE 40 MG/4 ML INJ (LASIX) IVP ONE (11:15)
[2019-09-22] MEDS ORDERED: VANCOMYCIN 750 MG/NS 250 ML IVPB IV SCH ×2 (12:00)
--- NOTE | 2019-09-22 12:02 | Progress Note - Hospitalist ---
Subjective HPI/CC On Admission Date Seen by Provider: Sep 22, 2019 Time Seen by Provider: 10:30 Chief complaint: Influenza B with wheezing and hypoxia History of present illness: This is a very complicated 89-year-old white male who is in the hospital a lot for multitude of medical problems including end- stage renal disease previously on hemodialysis baseline creatinine 3.5 and recurrent left lower extremity cellulitis along with hypertension and severe arthritis prednisone-dependent who presented to the ER with fever and cough found to have influenza B and elevated creatinine with chest pain in need of Cardiology evaluation and Tamiflu and close monitoring for decompensation. Patient is DO NOT RESUSCITATE and his prognosis has been poor for several years and he is in the hospital about every 2 weeks. He reports that the cough is about the same reports chest pain when he coughs and his creatinine did improve a little bit to 3.3 on supportive IV fluids but he does become volume overloaded very quickly. Cardiology has been consulted. Lactic acid did become elevated a she was maintain on IV fluids but could not increase fluids due to volume overload status on a chronic basis. Subjective/Events-last exam Patient doesn't think he can continue to survive with everything that is wrong with him Tried to reassure him but he is correct in all of the co-morbidities that he has Unsure I can fix what is wrong with him Lasix 40mg IV x 1 now and will heplock IVF since his cough is wet DNR reviewed Palliative care consultation will be requested tomorrow Try to get OOB today Very poor prognosis as he has been for the past 2 years Conferred with RN Reviewed meds and labs Review of Systems General: Fatigue Pulmonary: Dyspnea, Cough Focused Exam Lactate Level 09/20/19 15:15: Lactic Acid Level 1.66 09/20/19 22:22: Lactic Acid Level 2.90*H Time of Focused Exam: 18:10 Objective Exam Vital Signs Vital Signs Date Time Temp Pulse Resp B/P (MAP) Pulse Ox O2 Delivery O2 Flow Rate FiO2 09/22/19 13:16 Nasal Cannula 2.00 09/22/19 13:00 96 09/22/19 12:50 19 164/94 (117) 98 09/22/19 07:34 36.1 09/21/19 13:49 21 Capillary Refill : Less Than 3 Seconds General Appearance: No Apparent Distress, WD/WN, Chronically ill Respiratory: No Respiratory Distress, Accessory Muscle Use, Crackles, Decreased Breath Sounds, Wheezing Cardiovascular: Irregularly Irregular, Tachycardia Extremity: Pedal Edema Neurologic/Psychiatric: Alert, Oriented x3, No Motor/Sensory Deficits, Normal Mood/Affect Results/Procedures Lab Laboratory Tests 09/22/19 04:04 Patient resulted labs reviewed. Assessment/Plan Assessment and Plan Assess & Plan/Chief Complaint Assessment: Acute influenza B Hypoxia Wheezing Chest pain CAD Acute on chronic renal failure Colostomy status Hypertension Prednisone-dependent arthritis Plan: Home meds Monitor creatinine Tamiflu IV fluids heplock Lasix 40mg IV once time Oxygen Nebulizers Supportive care DO NOT RESUSCITATE Prognosis poor OOB Palliative care measures Diagnosis/Problems Diagnosis/Problems (1) Influenza B Status: Acute (2) Elevated troponin I level Status: Acute (3) Sepsis Status: Acute Qualifiers: Sepsis type: sepsis due to unspecified organism Sepsis acute organ dysfunction status: unspecified Qualified Codes: A41.9 - Sepsis, unspecified organism (4) Hypoxia Status: Acute (5) Hypokalemia Status: Acute (6) Acute renal failure superimposed on stage 3 chronic kidney disease Status: Acute (7) DVT prophylaxis Status: Acute (8) Colostomy care Status: Chronic (9) Hypertension Status: Chronic (10) Chronic atrial fibrillation Status: Chronic (11) Generalized weakness Status: Acute (12) Dyspnea (13) COPD with acute exacerbation Status: Acute (14) Anemia (15) CAD (coronary artery disease) Status: Chronic (16) Diabetes mellitus Status: Chronic (17) Stented coronary artery Status: Acute (18) Volume depletion Status: Acute Clinical Quality Measures AMI/AHF: ASA po Prior to arrival: No DVT/VTE Risk/Contraindication: Risk Factor Score Per Nursin RFS Level Per Nursing on Admit: 4+=Very High JACKELINE CEE DO Sep 22, 2019 12:02
--- NOTE | 2019-09-22 15:43 | Cardiology Progress Note ---
Cardiology SOAP Progress Note Subjective: Still complaining of shortness of breath. Objective: I&O/Vital Signs 09/22/19 09/22/19 09/22/19 09/22/19 04:00 07:00 07:34 07:58 Temp 36.1 36.1 Pulse 96 104 85 Resp 20 18 B/P (MAP) 123/80 (94) 162/88 (112) Pulse Ox 97 97 O2 Delivery Room Air Nasal Cannula O2 Flow Rate 2.00 09/22/19 09/22/19 09/22/19 09/22/19 11:14 12:50 13:00 13:16 Pulse 82 96 Resp 19 B/P (MAP) 164/94 (117) Pulse Ox 93 98 O2 Delivery Nasal Cannula Nasal Cannula O2 Flow Rate 2.00 2.00 09/22/19 00:00 Intake Total 715 ml Output Total 925 ml Balance -210 ml Weight (Pounds): 194 Weight (Ounces): 2.0 Weight (Calculated Kilograms): 88.653908 Constitutional: appears stated age, AAO x 3, apparent distress, well-developed, well-nourished Respiratory: chest is bilaterally symmetric, rhonchi, wheezing, other (decreased air entry bilaterally) Cardiovascular: irregularly irregular, tachycardia, S1 and S2 Gastrointestional: soft, audible bowel sounds; No spleenomegaly Extremities: non-tender, normal inspection; No clubbing, No cyanosis; significant edema Neurologic/Psychiatric: no motor/sensory deficits, alert, normal mood/affect, oriented x 3, power is 5/5 both on sides Skin: normal color, warm/dry, other (erythematous, swollen tender hot skin on the left lower extremity) Results/Procedures: Labs Laboratory Tests 09/21/19 15:52: Glucometer 186H 09/21/19 19:39: Vancomycin Level Trough 27.0*H 09/21/19 21:33: Glucometer 203H 09/22/19 04:04: White Blood Count 11.3H, Red Blood Count 3.99L, Hemoglobin 11.2L, Hematocrit 36L , Mean Corpuscular Volume 91, Mean Corpuscular Hemoglobin 28, Mean Corpuscular Hemoglobin Concent 31L, Red Cell Distribution Width 16.2H, Platelet Count 179, Mean Platelet Volume 10.2, Neutrophils (%) (Auto) 87H, Lymphocytes (%) (Auto) 8L , Monocytes (%) (Auto) 5, Eosinophils (%) (Auto) 0, Basophils (%) (Auto) 0, Neutrophils # (Auto) 9.8H, Lymphocytes # (Auto) 0.9L, Monocytes # (Auto) 0.5, Eosinophils # (Auto) 0.0, Basophils # (Auto) 0.0, Sodium Level 139, Potassium Level 5.5H, Chloride Level 116H, Carbon Dioxide Level 12L, Anion Gap 11, Blood Urea Nitrogen 60H, Creatinine 3.00H, Estimat Glomerular Filtration Rate 20, BUN/Creatinine Ratio 20, Glucose Level 441*H, Calcium Level 7.9L, Corrected Calcium 8.7, Total Bilirubin 0.3, Aspartate Amino Transf (AST/SGOT) 14, Alanine Aminotransferase (ALT/SGPT) 27, Alkaline Phosphatase 113, Total Protein 5.8L, Albumin 3.0L 09/22/19 09:05: Vancomycin Level Trough < 0.4#L 09/22/19 11:41: Glucometer 317H 09/22/19 15:36: Glucometer 317H Microbiology 09/21/19 MRSA Screen - Final, Complete MRSA not isolated 09/20/19 Urine Culture - Final, Complete YEAST 09/20/19 Blood Culture - Preliminary, Resulted No growth A/P: Assessment/Dx: Acute influenza B, Acute respiratory failure, Lactic acidosis, Atrial fibrillation with RVR, Likely type II myocardial infarction, Acute On chronic kidney injury, CAD, PCI to the LAD with drug-eluting stent in October 2018, Acute diastolic congestive heart failure Plan: Acute influenza B, defer to the primary team. Multiorgan involvement. With severe systemic manifestations including type II myocardial infarction and lactic acidosis. Acute respiratory failure, Lactic acidosis, Atrial fibrillation with RVR, continue Eliquis. Likely type II myocardial infarction, serial troponin. Acute On chronic kidney injury, hold IV fluids. Some improvement in creatinine. CAD, PCI to the LAD with drug-eluting stent in October 2018, continue Plavix, atorvastatin. I will like to hold off with coronary angiography as long as I can. Since his borderline troponin could be type II myocardial infarction due to severe sepsis related to influenza. Also acute on chronic kidney injury may be significantly worsen with contrast given during coronary angiography. I discussed with the patient and family and they both concur. Acute diastolic congestive heart failure, hold IV fluids. IV Lasix. Complicated patient with numerous active medical issues as above. Thank you for your consultation. Please call me if you have any questions. Mireille Clark MD, FACP, FACC, FSCAI, FHRS, CCDS Interventional Cardiology Cardiac Electrophysiology Vascular Medicine and Endovascular Interventions Focused Exam Lactate Level 09/20/19 15:15: Lactic Acid Level 1.66 09/20/19 22:22: Lactic Acid Level 2.90*H Time of Focused Exam: 18:10 Clinical Quality Measures AMI/AHF: ASA po Prior to arrival: Abner Nolasco MD Sep 22, 2019 15:43
[2019-09-22] MEDS: TAMSULOSIN 0.4 MG (FLOMAX) CAP PO SCH (17:00)
[2019-09-22] MEDS: guaiFENesin (MUCINEX) 600 MG TAB PO SCH (20:55)
--- NOTE | 2019-09-23 00:30 | NUR ---
pt called out due to iv bleeding. iv assessed and redressed by this rn. this rn attempted to start another iv in case said iv went bad. pt refused to be stuck. said that his "arms are too sore and he's too hard of a stick and has been stuck too many times already." will continue to monitor.
--- NOTE | 2019-09-23 01:29 | NUR ---
dr terry contacted due to pt iv going bad and patient refusing to be stuck for another iv at this time and iv cefepime is due at 0300. dr terry gave orders for oral omnicef 300 mg bid.
[2019-09-23] MEDS: RT-ALBUTEROL/IPRATROPIUM 3 ML (DUONEB) VIAL INH SCH ×6 (01:52→22:34)
[2019-09-23 03:37] VITALS: BP 121/72
[2019-09-23 04:01] LABS: BASOPHILS # (AUTO) 0.1 10^3/uL (0.0-0.1); BASOPHILS % (AUTO) 0 % (0-10); EOSINOPHILS # (AUTO) 0.1 10^3/uL (0.0-0.3); EOSINOPHILS % (AUTO) 0 % (0-10); HEMATOCRIT 38 % (40-54); HEMOGLOBIN 11.3 G/DL (13.3-17.7); LYMPHOCYTES # (AUTO) 1.4 X 10^3 (1.0-4.0); LYMPHOCYTES % (AUTO) 10 % (12-44); MEAN CORPUSCULAR HEMOGLOBIN 27 PG (25-34); MEAN CORPUSCULAR HGB CONC 30 G/DL (32-36); MEAN CORPUSCULAR VOLUME 91 FL (80-99); MEAN PLATELET VOLUME 9.9 FL (7.4-10.4); MONOCYTES % (AUTO) 7 % (0-12); NEUTROPHILS # (AUTO) 12.4 X 10^3 (1.8-7.8); NEUTROPHILS % (AUTO) 83 % (42-75); PLATELET COUNT 200 10^3/uL (130-400); RED CELL DISTRIBUTION WIDTH 16.3 % (10.0-14.5); WHITE BLOOD COUNT 14.9 10^3/uL (4.3-11.0)
[2019-09-23 04:26] LABS: ALBUMIN 3.4 GM/DL (3.2-4.5); BILIRUBIN,TOTAL 0.4 MG/DL (0.1-1.0); CALCIUM 8.3 MG/DL (8.5-10.1); CREATININE SERUM 3.08 MG/DL (0.60-1.30); TOTAL PROTEIN 6.1 GM/DL (6.4-8.2)
[2019-09-23 04:31] LABS: ANISOCYTOSIS SLIGHT; BAND NEUTROPHILS 5 %; BASOPHILS % (MANUAL) 0 %; EOSINOPHILS % (MANUAL) 0 %; LYMPHOCYTES % (MANUAL) 8 %; METAMYELOCYTES % 3 %; MONOCYTES % (MANUAL) 2 %; MYELOCYTES % 2 %; NEUTROPHILS % (MANUAL) 80 %; POIKILOCYTOSIS SLIGHT
[2019-09-23 04:32] LABS: ELLIPT/OVALOCYTES SLIGHT; SCHISTOCYTES SLIGHT; TEAR DROP CELLS SLIGHT
[2019-09-23] MEDS: inSUlin ASPART (NovoLOG) 1 UNIT/0.01 ML (CHARGE PER UNIT) SC SCH ×4 (06:00→16:02)
--- NOTE | 2019-09-23 06:01 | NUR ---
DR CEE CONTACTED DUE TO PT AM GLUCOSE LEVEL OF 275. PT HAS SLIDING SCALE AND SCHEDULED NOVOLOG ORDERED. ORDERS GIVEN TO HOLD SLIDING SCALE AND GIVE SCHEDULED NOVOLOG
[2019-09-23 08:00] VITALS: BP 117/86
--- NOTE | 2019-09-23 08:09 | NUR ---
Orders received from to obtain a midline. This nurse contacted [facility] and updated them on the midline request and order that was placed.
[2019-09-23] MEDS: metroNIDAZOLE 500 MG/100 ML IVPB (PRE-MIX) IV SCH ×2 (09:21→21:17)
[2019-09-23] MEDS: OSELTAMIVIR 30 MG (TAMIFLU) CAPSULE PO SCH (09:21)
[2019-09-23] MEDS: PANTOPRAZOLE 40 MG (PROTONIX) TAB PO SCH (09:21)
[2019-09-23] MEDS: ASPIRIN E.C. 81 MG (ECOTRIN) TAB PO SCH (09:22)
[2019-09-23] MEDS: CEFDINIR 300 MG (OMNICEF) CAP PO SCH ×2 (09:22→21:16)
[2019-09-23] MEDS: meTOproloL SUCCINATE 50 MG (TOPROL XL) TAB PO SCH (09:22)
[2019-09-23] MEDS: predniSONE 5 MG TAB PO SCH (09:22)
[2019-09-23] MEDS: guaiFENesin (MUCINEX) 600 MG TAB PO SCH ×2 (09:22→21:16)
[2019-09-23] MEDS: APIXABAN 2.5 MG (ELIQUIS) TABLET PO SCH ×2 (09:22→21:16)
--- NOTE | 2019-09-23 10:36 | NUR ---
PALLIATIVE CARE RN consult received for hospice education. I have met with the patient who says things like "I don't want to be a pin cushion", "it's my body I will do what I want", and "I don't know if they can every make me better". We did discuss his chronic illnesses and the difficulty we have in treating them. He understood and is willing to have a hospice discussion. I have been given permission to call and talk with his daughter about the hospice option.
--- NOTE | 2019-09-23 10:48 | Pulmonary Consultation ---
History of Present Illness History of Present Illness Date Seen by Provider: Sep 23, 2019 Time Seen by Provider: 10:42 Date of Admission History of Present Illness 89yo with hx of renal failure, LL extremity cellulitis, severe arthritis prednisone dependent presented to ED secondary to fever, cough and found to have influenza B. Cardiology was consulted secondary to elevated CR. PT was started on Tamiflu and admitted for close observation. Pt is a full DNR. Pt has had multiple hospitalizations for similar issues. I am consulted for pulmonary management. Allergies and Home Medications Allergies Coded Allergies: No Known Drug Allergies (Verified , 09/20/19) Home Medications Acetaminophen 650 Mg Tablet.er, 1,300 MG PO DAILY PRN for PAIN-MILD, (Reported) Amoxicillin/Potassium Clav 1 Each Tablet, 1 TAB PO BID, (Reported) 10 DAY SUPPLY FILLED 09-14-19 Apixaban 2.5 Mg Tablet, 2.5 MG PO DAILY, (Reported) Atorvastatin Calcium 10 Mg Tablet, 10 MG PO HS, (Reported) Calcitriol 0.25 Mcg Capsule, 0.25 MCG PO MoWeFr, (Reported) Calcium Carbonate 300 Mg Tab.chew, 600 MG PO TID, (Reported) Clopidogrel Bisulfate 75 Mg Tablet, 75 MG PO DAILY, (Reported) Dulaglutide 0.75 Mg/0.5 Ml Pen.injctr, 0.75 MG SQ Mo, (Reported) Furosemide 40 Mg Tablet, 40 MG PO DAILY, (Reported) Insulin Detemir 100 Unit/1 Ml Insuln.pen, 30 UNIT SQ BID, (Reported) Insulin Lispro 100 Unit/1 Ml Insuln.pen, 16 UNIT SQ TIDAC, (Reported) Metoprolol Succinate 100 Mg Tab.er.24h, 100 MG PO DAILY, (Reported) Nitroglycerin 0.4 Mg Tab.subl, 0.4 MG SL UD PRN for CHEST PAIN, (Reported) Pantoprazole Sodium 40 Mg Tablet.dr, 40 MG PO DAILY, (Reported) Prednisone 5 Mg Tablet, 5 MG PO BID, (Reported) Tamsulosin HCl 0.4 Mg Cap, 0.4 MG PO DAILY, (Reported) Past Iliqsqj-Rvbkfp-Sqwief Hx Past Med/Social Hx: Reviewed Nursing Past Med/Soc Hx, Reviewed and Corrections made Patient Social History Alcohol Use: Denies Use Number of Drinks Today: Alcohol Beverage of Choice: Beer, Wine Recreational Drug Use: No Smoking Status: Former Smoker Type Used: Cigars, Cigarettes Former Smoker, Quit: Feb 20, 1958 2nd Hand Smoke Exposure: No Recent Foreign Travel: No Contact w/Someone Who Travel: No Recent Infectious Disease Expo: No Recent Hopitalizations: Yes (AUGUST 2019) Immunizations Up To Date Tetanus Booster (TDap): Unknown PED Vaccines UTD: No Date of Pneumonia Vaccine: Jan 13, 2014 Date of Influenza Vaccine: Jul 23, 2019 Seasonal Allergies Seasonal Allergies: No Past Medical History Surgeries: Yes Bowel Surgery, Coronary Stent, Orthopedic Respiratory: Yes Pneumonia Currently Using CPAP: No Currently Using BIPAP: No Cardiac: Yes Coronary Artery Disease, Hypertension Neurological: No Sexually Transmitted Disease: No HIV/AIDS: No Genitourinary: Yes Benign Prostatic Hyperpl, Kidney Infection, Renal Failure Gastrointestinal: Yes Abdominal Hernia, Gastroesophageal Reflux, Gastrointestinal Bleed, Diverticulosis Musculoskeletal: Yes Arthritis, Rheumatoid Arthritis Endocrine: Yes Diabetes, Non-Insulin dep Are Your Blood Sugars Over 250: No HEENT: Yes Cataract, Macular Degeneration Loss of Vision: Left Hearing Impairment: Hard of Hearing Cancer: No Psychosocial: No Depression Integumentary: Yes Psoriasis Blood Disorders: No Adverse Reaction/Blood Tranf: No Family Medical History Cardiovascular disease G8 BROTHER Diabetes mellitus 19 MOTHER G8 BROTHER FH: pancreatic cancer 19 FATHER Heart Disease, CAD Over 55 Years Old, Diabetes Review of Systems Time Seen by Provider: 10:53 Sepsis Event Evaluation Height, Weight, BMI Height: 5'7.00" Weight: 194lbs. 2.0oz. 88.196126kg; 34.07 BMI Method:Stated Exam Exam Vital Signs Date Time Temp Pulse Resp B/P (MAP) Pulse Ox O2 Delivery O2 Flow Rate FiO2 09/23/19 10:12 98 Nasal Cannula 1.50 09/23/19 08:00 Room Air 09/23/19 08:00 36.6 103 20 117/86 (96) 95 09/23/19 07:00 88 09/23/19 03:37 36.7 96 18 121/72 (88) 96 09/23/19 01:52 96 Room Air 09/23/19 01:00 106 09/22/19 23:26 36.8 96 16 122/74 (90) 96 09/22/19 20:00 36.7 87 18 109/68 (82) 95 09/22/19 20:00 Room Air 09/22/19 19:12 98 Room Air 09/22/19 19:00 80 09/22/19 15:32 37.2 87 21 143/81 (101) 98 09/22/19 13:16 Nasal Cannula 2.00 09/22/19 13:00 96 09/22/19 12:50 82 19 164/94 (117) 98 09/22/19 11:14 93 Nasal Cannula 2.00 I & O 09/23/19 07:00 Intake Total 2357.5 ml Output Total 2450 ml Balance -92.5 ml Height & Weight Height: 5'7.00" Weight: 194lbs. 2.0oz. 88.695940dd; 34.07 BMI Method:Stated General Appearance: No Apparent Distress, WD/WN, Chronically ill HEENT: PERRL/EOMI, Normal ENT Inspection, Pharynx Normal, Moist Mucous Membranes Neck: Full Range of Motion, Normal Inspection, Non Tender Respiratory: No Respiratory Distress, Accessory Muscle Use, Crackles, Decreased Breath Sounds, Wheezing Cardiovascular: Irregularly Irregular, Tachycardia Capillary Refill: Less Than 3 Seconds Peripheral Pulses: 2+ Radial Pulses (R), 2+ Radial Pulses (L) Extremity: Pedal Edema Neurologic/Psychiatric: Alert, Oriented x3, No Motor/Sensory Deficits, Normal Mood/Affect Skin: Normal Color, Warm/Dry Lymphatic: No Adenopathy Results Lab Laboratory Tests 09/22/19 04:04 09/23/19 03:42 Assessment/Plan Assessment/Plan Acute influenza B -Tamiflu -Monitor Acute bronchitis with coughing and expiratory wheezing -Start solumedrol - add Robitussin with codeine Acute Sepsis -Pt is currently on Flagyl and Omnicef metabolic lactic acidosis -Monitor -IVF Anemia -Monitor Afib RVR -Cardiology following CKD stage IV- hx of needing HD -monitor close gentle hydration secondary to CHF Weakness/debility -PT/OT CAD s/p cath with stent placement 11/10 Acute diastolic CHF -Monitor close diastolic heart dysfunction Overall prognosis poor. Hospice is consulted for education. LORNA VERA DO Sep 23, 2019 10:48
--- NOTE | 2019-09-23 11:19 | Progress Note - Hospitalist ---
BRICE SANTOYO,MED STUDENT 09/23/19 1119: Subjective HPI/CC On Admission Date Seen by Provider: Sep 23, 2019 Time Seen by Provider: 08:01 Chief complaint: Influenza B with wheezing and hypoxia History of present illness: This is a very complicated 89-year-old white male who is in the hospital a lot for multitude of medical problems including end- stage renal disease previously on hemodialysis baseline creatinine 3.5 and recurrent left lower extremity cellulitis along with hypertension and severe arthritis prednisone-dependent who presented to the ER with fever and cough found to have influenza B and elevated creatinine with chest pain in need of Cardiology evaluation and Tamiflu and close monitoring for decompensation. Patient is DO NOT RESUSCITATE and his prognosis has been poor for several years and he is in the hospital about every 2 weeks. He reports that the cough is about the same reports chest pain when he coughs and his creatinine did improve a little bit to 3.3 on supportive IV fluids but he does become volume overloaded very quickly. Cardiology has been consulted. Lactic acid did become elevated a she was maintain on IV fluids but could not increase fluids due to volume overload status on a chronic basis. Subjective/Events-last exam Pt continues to complain of shortness of breath and cough Lost IV access again overnight, nurse working on getting midline access Lasix therapy working well but pt still unable to ambulate due to pain in his feet WBC elevated today to 14.9 from 11.3 Cardio following with serial troponins, bnp Focused Exam Lactate Level 09/20/19 15:15: Lactic Acid Level 1.66 09/20/19 22:22: Lactic Acid Level 2.90*H Time of Focused Exam: 18:10 Objective Exam Vital Signs Vital Signs Date Time Temp Pulse Resp B/P (MAP) Pulse Ox O2 Delivery O2 Flow Rate FiO2 09/23/19 10:12 98 Nasal Cannula 1.50 09/23/19 08:00 36.6 103 20 117/86 (96) 09/21/19 13:49 21 Capillary Refill : Less Than 3 Seconds General Appearance: No Apparent Distress, WD/WN, Chronically ill, Obese HEENT: Pharynx Normal, Moist Mucous Membranes, Pharyngeal Erythema Neck: Non Tender, Supple Respiratory: Chest Non Tender, No Accessory Muscle Use, No Respiratory Distress, Crackles, Rhonci Cardiovascular: No Gallop, No Murmur, Irregularly Irregular Gastrointestinal: Non Tender, Soft Extremity: No Calf Tenderness, Pedal Edema (+4 pitting ), Swelling Neurologic/Psychiatric: Alert, Oriented x3 Skin: Warm/Dry, Pallor Lymphatic: No Adenopathy (supra/infraclavicular, A/P cervical) Results/Procedures Lab Laboratory Tests 09/23/19 03:42 Patient resulted labs reviewed. Assessment/Plan Assessment and Plan Assess & Plan/Chief Complaint Assessment: Acute influenza B Leukocytosis - neutrophil predominance Atrial fibrillation CHF Dependent edema Hypoxia Wheezing Chest pain CAD Acute on chronic renal failure Colostomy status Hypertension Prednisone-dependent arthritis Plan: Midline access achieved continue tamivir, lasix therapy IV, antibiotic therapy Serial troponins, BNP palliative care consult PT/OT consult to get pt OOB and ambulating Clinical Quality Measures AMI/AHF: ASA po Prior to arrival: No DVT/VTE Risk/Contraindication: Risk Factor Score Per Nursin RFS Level Per Nursing on Admit: 4+=Very High TRIXIE WILDE DO 09/23/19 1623: Subjective Subjective/Events-last exam Multiple issues through the night including high sugars then lost IV access. Midline has been placed. Palliative care consulted. PT and OT will be initiated. Overall prognosis poor, given the severe comorbidities and the advanced age of 89 and previously a group home Pt. Review of Systems General: Fatigue Pulmonary: Dyspnea, Cough Objective Exam General Appearance: Chronically ill, Mild Distress, Obese, Other (Ashen and amaro) Respiratory: No Respiratory Distress, Accessory Muscle Use, Rales, Rhonci, Wheezing Cardiovascular: Irregularly Irregular, Tachycardia Extremity: Pedal Edema (+4 pitting ) Neurologic/Psychiatric: Alert, Oriented x3, No Motor/Sensory Deficits, Normal Mood/Affect Assessment/Plan Assessment and Plan Assess & Plan/Chief Complaint Plan: Palliative care Monitor creatinine Midline Continue antibiotics Poor prognosis Diagnosis/Problems Diagnosis/Problems (1) Influenza B Status: Acute (2) Elevated troponin I level Status: Acute (3) Diabetes mellitus Status: Chronic (4) Anemia (5) Generalized weakness Status: Acute (6) CAD (coronary artery disease) Status: Chronic (7) Dyspnea (8) Hypertension Status: Chronic (9) Colostomy care Status: Chronic (10) Chronic atrial fibrillation Status: Chronic (11) COPD with acute exacerbation Status: Acute (12) DVT prophylaxis Status: Acute (13) Acute renal failure superimposed on stage 3 chronic kidney disease Status: Acute (14) Stented coronary artery Status: Acute Supervisory-Addendum Brief Verification & Attestation Participated in pt care: history, MDM, physical Personally performed: exam, history, MDM, supervision of care Care discussed with: Medical Student Procedures: n/a Results interpretation: Verified all documentation Verification and Attestation of Medical Student E/M Service A medical student performed and documented this service in my presence. I reviewed and verified all information documented by the medical student and made modifications to such information, when appropriate. I personally performed the physical exam and medical decision making. Trixie Wilde, Sep 23, 2019,20:47 BRICE SANTOYO,MED STUDENT Sep 23, 2019 11:19 TRIXIE WILDE DO Sep 23, 2019 16:23
[2019-09-23 12:00] VITALS: BP 123/85
[2019-09-23] MEDS ORDERED: FUROSEMIDE 40 MG/4 ML INJ (LASIX) IVP NR (13:00)
--- NOTE | 2019-09-23 13:10 | NUR ---
Pastoral care visit.
--- NOTE | 2019-09-23 13:20 | Occupational Therapy Eval ---
OT Evaluation-General/PLF Medical Diagnosis Admission Date Sep 20, 2019 at 18:00 Medical Diagnosis: Influenza B, LLE cellulitis, end stage renal disease Onset Date: Sep 21, 2019 Therapy Diagnosis Therapy Diagnosis: Decreased ADL function Height/Weight Height (Feet): 5 Height (Inches): 7.00 Weight (Pounds): 194 Weight (Ounces): 2.0 Precautions Precautions/Isolations: Droplet Isolation Safety Interventions: None Weight Bear Status Weight Bearing Restriction: Weight Bearing/Tolerated Referral Physician: Trixie Wilde Referral Reason: Activity Tolerance, Self Care, Evaluation/Treatment, Strengthening/ROM Medical History Pertinent Medical History: Arthritis, CAD, DM, GERD, HTN, Macular Degenertion, Smoking Additional Medical History Per H&P: "This is a very complicated 89-year-old white male who is in the hospital a lot for multitude of medical problems including end-stage renal disease previously on hemodialysis baseline creatinine 3.5 and recurrent left lower extremity cellulitis along with hypertension and severe arthritis prednisone-dependent who presented to the ER with fever and cough found to have influenza B and elevated creatinine with chest pain in need of Cardiology evaluation and Tamiflu and close monitoring for decompensation. Patient is DO NOT RESUSCITATE and his prognosis has been poor for several years and he is in the hospital about every 2 weeks. He reports that the cough is about the same reports chest pain when he coughs and his creatinine did improve a little bit to 3.3 on supportive IV fluids but he does become volume overloaded very quickly. Cardiology has been consulted. Lactic acid did become elevated a she was maintain on IV fluids but could not increase fluids due to volume overload status on a chronic basis." Current History bowel surgery with colostomy placement, coronary stent, COPD, CAD, HTN, renal failure, diverticulosis, RA, NID DM, macular degeneration, cataracts (L), [place], depression, psoriasis Reviewed History: Yes Social History Home: Apartment Current Living Status: Alone Entry Into Home: Level Entry ADL-Prior Level of Function SCALE: Activities may be completed with or without assistive devices. 7-Psuquitces-vndfrdu completes the activity by him/herself with no assistance from a helper. 5-Set-up or Clean-up Assistance-helper sets up or cleans up; patient completes activity. [place] assists only prior to or following the activity. 4-Supervision or Touching Assistance-helper provides verbal cues and/or touching /steadying and/or contact guard assistance as patient completes activity. Assistance may be provided throughout the activity or intermittently. 3-Partial/Moderate Assistance-helper does LESS THAN HALF the effort. [place] lifts, holds or supports trunk or limbs, but provides less than half the effort. 2-Substantial/Maximal Assistance-helper does MORE THAN HALF the effort. [place] lifts or holds trunk or limbs and provides more than half the effort. 3-Ksritthig-keafbw does ALL the effort. Patient does none of the effort to complete the activity. Or, the assistance of 2 or more helpers is required for the patient to complete the activity. If activity was not attempted, code reason: 7-Patient Refused. 9-Not Applicable-not attempted and the patient did not perform the activity before the current illness, exacerbation or injury. 10-Not Attempted due to Environmental Limitations-(lack of equipment, weather restraints, etc.). 88-Not Attempted due to Medical Conditions or Safety Concerns. Self Care: Needed Some Help (Pt states he will ask assist for showering/ dressing when needed.) Functional Cognition: Independent DME/Equipment: Shower DME/Equipment Comments Pt has FWW and SPC Occupation: retired OT Current Status Subjective Pt seen EOB, agreeable to OT/PT co-treat for evaluation. Co-treat rendered due to pt's fatigue and decreased safety compliance. OT addressed self care while PT addresses functional mobility. Pt denies pain, states he has not slept in 3 days and desires to go to bed without coughing. Pt states he isn't able to sleep due to racing thoughts. Mental Status/Objective Patient Orientation: Person, Place, Situation, Normal For Age Attachments: IV Current Glasses/Contacts: No Hearing Aids: No Dentures/Partials: No Hand Dominance: Right Upper Extremity ROM WFL BUE Upper Extremity Coordination WFL BUE Upper Extremity Sensation No c/o paresthesias Upper Extremity Strength WFL BUE Edema: Pitting edema BLE from knees to feet; LLE cellulitis ADL-Treatment Eating (QC): 6 Oral Hygiene (QC): 7 Shower/Bathe Self (QC): 7 Upper Body Dressing (QC): 7 Lower Body Dressing (QC): 7 On/Off Footwear (QC): 2 Toileting Hygiene (QC): 7 Other Treatments OT role addressed. Pt has extensive PMHx, seen EOB. Pt states he is unable to sleep, has been better while sitting upright EOB or chair. Pt denies ADL activities, stating he is not feeling well. Pt agrees to lotion on his legs and ambulating to chair. Socks donned/ doffed with TD due to pt fatigue, lotion applied and socks applied. Pt sit to stand with SBA (denies gait belt), ambulates to chair with CGA to gown, sits in chair. Pt positioned for comfort and edema management with pillows in chair. Pt left with PT end of session, call light in reach, all needs met. Education OT Patient Education: Correct positioning, Modified ADL techniques, Purpose of tx/functional activities, Safety issues Teaching Recipient: Patient Teaching Methods: Demonstration, Discussion Response to Teaching: Verbalize Understanding, Return Demonstration OT Mcfp Goals Supervisor Sunglasses Goals Time Frame: Sep 30, 2019 Eating (QC): 6 Oral Hygiene (QC): 6 Toileting Hygiene (QC): 6 Shower/Bathe Self (QC): 6 Upper Body Dressing (QC): 6 Lower Body Dressing (QC): 6 On/Off Footwear (QC): 6 Additional Goals: 1-Demonstrate ADL Tasks, 2-Verbalize Understanding, 3- ImproveStrength/Jason 1=Demonstrate adherence to instructed precautions during ADL tasks. 2=Patient will verbalize/demonstrate understanding of assistive devices/modifications for ADL. 3=Patient will improve strength/tolerance for activity to enable patient to perform ADL's. OT Education/Plan Problem List/Assessment Assessment: Decreased Activ Tolerance, Edema, Impaired I ADL's, Impaired Self- Care Skills Discharge Recommendations Plan/Recommendations: Continue POC Therapy Discharge Recommendati: Scheduled Assistance Treatment Plan/Plan of Care Treatment,Training & Education: Yes Patient would benefit from OT for education, treatment and training to promote independence in ADL's, mobility, safety and/or upper extremity function for ADL's. Plan of Care: ADL Retraining, Functional Mobility, Group Exercise/Act as Ind, UE Funct Exercise/Act Treatment Duration: Sep 30, 2019 Frequency: 5 times per week Estimated Hrs Per Day: .25 hour per day Agreement: Yes Rehab Potential: Fair Time/GCodes Start Time: 12:50 Stop Time: 13:13 Total Time Billed (hr/min): 23 Billed Treatment Time 1, EVM (10), ADL (13)= 23 LETHA SUERO OTR Sep 23, 2019 13:20
--- NOTE | 2019-09-23 13:39 | NUR ---
PALLIATIVE CARE RN spoke to patient's daughter, Radha, about hospice. SHe reports having asked Dr. Clark about this yesterday. She is willing to be present for an informational meeting tomorrow at 1:30 with [facility]. There are other POC options being explored as well, such as SWING BED if applicable.
--- NOTE | 2019-09-23 13:39 | Physical Therapy Evaluation ---
PT Evaluation-General Medical Diagnosis Admission Date Sep 20, 2019 at 18:00 Medical Diagnosis: Influenza B, LLE cellulitis, end stage renal disease Onset Date: Sep 21, 2019 Therapy Diagnosis Therapy Diagnosis: abn gait Height/Weight Height (Feet): 5 Height (Inches): 7.00 Weight (Pounds): 194 Weight (Ounces): 2.0 Precautions Precautions/Isolations: Droplet Isolation Referral Physician: Trixie Wilde Reason for Referral: Evaluation/Treatment Medical History Pertinent Medical History: Arthritis, CAD, DM, GERD, HTN, Macular Degenertion, Smoking Additional Medical History recent UTI, LE cellulitis, end stage renal disease. Current History Admitted with influenza and hypoxia Reviewed History: Yes Social History Home: Apartment Current Living Status: Alone Entry Into Home: Level Entry pt has paid caregivers as needed, no set number of hours. Prior Prior Level of Function SCALE: Activities may be completed with or without assistive devices. 5-Exbwydinhi-agughuj completes the activity by him/herself with no assistance from a helper. 5-Set-up or Clean-up Assistance-helper sets up or cleans up; patient completes activity. [place] assists only prior to or following the activity. 4-Supervision or Touching Assistance-helper provides verbal cues and/or touching/steadying and/or contact guard assistance as patient completes activity. Assistance may be provided throughout the activity or intermittently. 3-Partial/Moderate Assistance-helper does LESS THAN HALF the effort. [place] lifts, holds or supports trunk or limbs, but provides less than half the effort. 2-Substantial/Maximal Assistance-helper does MORE THAN HALF the effort. [place] lifts or holds trunk or limbs and provides more than half the effort. 8-Hqoryunje-snligu does ALL the effort. Patient does none of the effort to complete the activity. Or, the assistance of 2 or more helpers is required for the patient to complete the activity. If activity was not attempted, code reason: 7-Patient Refused. 9-Not Applicable-not attempted and the patient did not perform the activity before the current illness, exacerbation or injury. 10-Not Attempted due to Environmental Limitations-(lack of equipment, weather restraints, etc.). 88-Not Attempted due to Medical Conditions or Safety Concerns. Bed Mobility: 6 Transfers (B,C,W/C): 6 Gait: 6 (uses a FWW or cane) Indoor Mobility (Ambulation): Independent Prior Devices Use: Walker PT Evaluation-Current Subjective Reports he does not feel well and does not want to do much today. Objective Patient Orientation: Person, Place, Time, Situation Attachments: IV ROM/Strength ROM Lower Extremities WFL Strength Lower Extremities B LE strength is grossly 4-/5 throughout. Integumentary/Posture Integumentary refer to nursing notes for full assessment Bowel Incontinence: No Bladder Incontinence: No Posture rounded shoulders and forward head but symmetrical Neuromuscular (Tone, Coordination, Reflexes) intact and functional Sensory Vision: Wears Glasses Hearing: Functional Hand Dominance: Right Sensation Right Lower Extremit: Intact Sensation Left Lower Extremity: Intact Transfers Sit to Stand (QC): 4 (SB-CGA; pt did refuse use of gait belt. ) pt sitting EOB when this therapist entered. Gait Does the Patient Walk?: Yes Mode of Locomotion: Walk Anticipated Mode of Locomotion: Walk Walk 10 feet (QC): 4 Walk 50 ft with 2 Turns(QC): 4 (Hand at patient's waist, but he did refuse use of the gait belt. ) Comments/Gait Description Pt walked around foot of bed to the chair with FWW, slow gait but steady. Up in chair post treatment. Balance Sitting Static: Good Sitting Dynamic: Good Standing Static: Fair Standing Dynamic: Fair Assessment/Needs Presents with gross functional weakness and impaired functional act tolernace. He will benefit from skilled PT services to address strength and mobilty to allow him to return home as before and care for himself. Rehab Potential: Good PT Carriage Feeder Goals [facility]it[facility]iary Goals PT Carriage Feeder Goals Time Frame: Sep 30, 2019 Sit to Lying (QC): 6 Lying-Sitting on Side/Bed(QC): 6 Sit to Stand (QC): 6 Walk 50ft with 2 Turns (QC): 6 Walk 150 ft (QC): 6 PT Plan Problem List Problem List: Activity Tolerance, Functional Strength, Safety, Balance, Gait, Transfer, Bed Mobility Treatment/Plan Treatment Plan: Continue Plan of Care Treatment Plan: Bed Mobility, Education, Functional Activity Jason, Functional Strength, Gait, Safety, Therapeutic Exercise, Transfers Treatment Duration: Sep 30, 2019 Frequency: 6 times per week Estimated Hrs Per Day: .25 hour per day Patient and/or Family Agrees t: Yes Safety Risks/Education Patient Education: Safety Issues Teaching Recipient: Patient Teaching Methods: Discussion Response to Teaching: Reinforcement Needed education on purpose of gait belt for safety. Discharge Recommendations Therapy Discharge Recommendati: Post Acute PT Time/GCodes Time In: 1250 Time Out: 1310 Total Billed Treatment Time: 20 Total Billed Treatment visit EVM 20 MAK GLEASON PT Sep 23, 2019 13:39
[2019-09-23 16:00] VITALS: BP 137/93
--- NOTE | 2019-09-23 16:49 | Cardiology Progress Note ---
Cardiology SOAP Progress Note Subjective: Still continues to have shortness of breath. Objective: I&O/Vital Signs 09/23/19 09/23/19 09/23/19 09/23/19 07:00 08:00 08:00 10:12 Temp 36.6 Pulse 88 103 Resp 20 B/P (MAP) 117/86 (96) Pulse Ox 95 98 O2 Delivery Room Air Nasal Cannula O2 Flow Rate 1.50 09/23/19 09/23/19 09/23/19 09/23/19 12:00 12:25 15:47 16:00 Temp 37.0 Pulse 110 102 97 Resp 18 21 B/P (MAP) 123/85 (98) 137/93 (108) Pulse Ox 96 97 97 O2 Delivery Room Air Room Air Room Air 09/23/19 00:00 Intake Total 1807.5 ml Output Total 1900 ml Balance -92.5 ml Weight (Pounds): 194 Weight (Ounces): 2.0 Weight (Calculated Kilograms): 88.800631 Constitutional: appears stated age, AAO x 3, apparent distress, well-developed, well-nourished Respiratory: chest is bilaterally symmetric, rhonchi, wheezing, other (decreased air entry bilaterally) Cardiovascular: irregularly irregular, tachycardia, S1 and S2 Gastrointestional: soft, audible bowel sounds; No spleenomegaly Extremities: non-tender, normal inspection; No clubbing, No cyanosis; significant edema Neurologic/Psychiatric: no motor/sensory deficits, alert, normal mood/affect, oriented x 3, power is 5/5 both on sides Skin: normal color, warm/dry, other (erythematous, swollen tender hot skin on the left lower extremity) Results/Procedures: Labs Laboratory Tests 09/22/19 20:42: Glucometer 227H 09/23/19 03:42: White Blood Count 14.9H, Red Blood Count 4.13L, Hemoglobin 11.3L, Hematocrit 38L , Mean Corpuscular Volume 91, Mean Corpuscular Hemoglobin 27, Mean Corpuscular Hemoglobin Concent 30L, Red Cell Distribution Width 16.3H, Platelet Count 200, Mean Platelet Volume 9.9, Neutrophils (%) (Auto) 83H, Lymphocytes (%) (Auto) 10L , Monocytes (%) (Auto) 7, Eosinophils (%) (Auto) 0, Basophils (%) (Auto) 0, Neutrophils # (Auto) 12.4H, Lymphocytes # (Auto) 1.4, Monocytes # (Auto) 1.0, Eosinophils # (Auto) 0.1, Basophils # (Auto) 0.1, Neutrophils % (Manual) 80, Lymphocytes % (Manual) 8, Monocytes % (Manual) 2, Eosinophils % (Manual) 0, Basophils % (Manual) 0, Metamyelocytes % 3, Myelocytes % 2, Band Neutrophils 5, Poikilocytosis SLIGHT, Anisocytosis SLIGHT, Tear Drop Cells SLIGHT, Elliptocytes SLIGHT, Schistocytes SLIGHT, Sodium Level 136, Potassium Level 5.0, Chloride Level 112H, Carbon Dioxide Level 12L, Anion Gap 12, Blood Urea Nitrogen 62H, Creatinine 3.08H, Estimat Glomerular Filtration Rate 19, BUN/Creatinine Ratio 20, Glucose Level 275H, Calcium Level 8.3L, Corrected Calcium 8.8, Total Bilirubin 0.4, Aspartate Amino Transf (AST/SGOT) 12, Alanine Aminotransferase (ALT/SGPT) 22, Alkaline Phosphatase 131, Total Protein 6.1L, Albumin 3.4 09/23/19 11:33: Glucometer 272H 09/23/19 15:42: Glucometer 246H Microbiology 09/21/19 MRSA Screen - Final, Complete MRSA not isolated 09/20/19 Urine Culture - Final, Complete YEAST 09/20/19 Blood Culture - Preliminary, Resulted No growth A/P: Assessment/Dx: Acute influenza B, Acute respiratory failure, Lactic acidosis, Atrial fibrillation with RVR, Likely type II myocardial infarction, Acute On chronic kidney injury, CAD, PCI to the LAD with drug-eluting stent in October 2018, Acute diastolic congestive heart failure Plan: Acute influenza B, defer to the primary team. Multiorgan involvement. With severe systemic manifestations including type II myocardial infarction and lactic acidosis. Acute respiratory failure, Lactic acidosis, Atrial fibrillation with RVR, continue Eliquis. Likely type II myocardial infarction, serial troponin. Acute On chronic kidney injury, hold IV fluids. Some improvement in creatinine. CAD, PCI to the LAD with drug-eluting stent in October 2018, continue Plavix, atorvastatin. I will like to hold off with coronary angiography as long as I can. Since his borderline troponin could be type II myocardial infarction due to severe sepsis related to influenza. Also acute on chronic kidney injury may be significantly worsen with contrast given during coronary angiography. I discussed with the patient and family and they both concur. Acute diastolic congestive heart failure, hold IV fluids. Lasix 80 mg IV times one. Complicated patient with numerous active medical issues as above. Thank you for your consultation. Please call me if you have any questions. Mireille Clark MD, FACP, FACC, FSCAI, FHRS, CCDS Interventional Cardiology Cardiac Electrophysiology Vascular Medicine and Endovascular Interventions Focused Exam Lactate Level 09/20/19 22:22: Lactic Acid Level 2.90*H Time of Focused Exam: 18:10 Clinical Quality Measures AMI/AHF: ASA po Prior to arrival: Abner Nolasco MD Sep 23, 2019 16:49
[2019-09-23] MEDS ORDERED: methylPREDNISolone 125 MG (Solu-MEDROL) VIAL IVP NR (17:00)
--- NOTE | 2019-09-23 17:35 | Diagnostic Imaging Report ---
INDICATION: Shortness of breath. COMPARISON: 09/21/2019. FINDINGS: Single view of the chest demonstrates stable bibasilar atelectasis with trace effusion. The heart is prominent without pulmonary edema. Lung volumes remain low. There is no pneumothorax. Osseous structures are normal. IMPRESSION: Unchanged aeration of the lungs. Dictated by: Dictated on workstation # [id number]
[2019-09-23] MEDS: TAMSULOSIN 0.4 MG (FLOMAX) CAP PO SCH (17:58)
[2019-09-23] MEDS: RT-BUDESONIDE NEBS 0.5 MG/2ML (PULMICORT) AMP INH SCH (19:20)
[2019-09-23 20:00] VITALS: BP 150/94
--- NOTE | 2019-09-23 23:00 | NUR ---
CALLED DR. TO AND INFORMED HIM THAT PATIENT'S IRREGULAR HEART RATE IS NOW RANGING FROM 110-140, NOT SUSTAINED. RECEIVED ORDER FOR METOPROLOL 50MG PO ONCE. WILL CONTINUE TO MONITOR.
[2019-09-23] MEDS ORDERED: meTOproloL SUCCINATE 50 MG (TOPROL XL) TAB PO SCH (23:15)
[2019-09-23] MEDS: methylPREDNISolone 40 MG/ML (Solu-MEDROL) VIAL IV SCH (23:29)
[2019-09-24] VITALS: BP 152/88
[2019-09-24] MEDS: RT-ALBUTEROL/IPRATROPIUM 3 ML (DUONEB) VIAL INH SCH ×5 (02:19→21:42)
[2019-09-24 04:00] VITALS: BP 163/84
[2019-09-24 05:18] LABS: BASOPHILS # (AUTO) 0.1 10^3/uL (0.0-0.1); BASOPHILS % (AUTO) 1 % (0-10); EOSINOPHILS % (AUTO) 0 % (0-10); HEMATOCRIT 39 % (40-54); LYMPHOCYTES # (AUTO) 0.8 X 10^3 (1.0-4.0); LYMPHOCYTES % (AUTO) 6 % (12-44); MEAN CORPUSCULAR HEMOGLOBIN 28 PG (25-34); MEAN CORPUSCULAR HGB CONC 31 G/DL (32-36); MEAN CORPUSCULAR VOLUME 91 FL (80-99); MEAN PLATELET VOLUME 9.7 FL (7.4-10.4); MONOCYTES # (AUTO) 0.1 X 10^3 (0.0-1.0); MONOCYTES % (AUTO) 1 % (0-12); NEUTROPHILS % (AUTO) 93 % (42-75); PLATELET COUNT 201 10^3/uL (130-400); RED CELL DISTRIBUTION WIDTH 16.2 % (10.0-14.5)
[2019-09-24 05:37] LABS: ALBUMIN 3.5 GM/DL (3.2-4.5); BILIRUBIN,TOTAL 0.4 MG/DL (0.1-1.0); CALCIUM 8.7 MG/DL (8.5-10.1); CREATININE SERUM 3.51 MG/DL (0.60-1.30); POTASSIUM 5.4 MMOL/L (3.6-5.0); TOTAL PROTEIN 6.5 GM/DL (6.4-8.2)
[2019-09-24] MEDS: methylPREDNISolone 40 MG/ML (Solu-MEDROL) VIAL IV SCH ×3 (06:35→18:37)
[2019-09-24] MEDS: inSUlin ASPART (NovoLOG) 1 UNIT/0.01 ML (CHARGE PER UNIT) SC SCH ×3 (06:35→17:09)
--- NOTE | 2019-09-24 09:28 | Progress Note - Hospitalist ---
BRICE SANTOYO,MED STUDENT 09/24/19 0928: Subjective HPI/CC On Admission Date Seen by Provider: Sep 24, 2019 Time Seen by Provider: 07:21 Chief complaint: Influenza B with wheezing and hypoxia History of present illness: This is a very complicated 89-year-old white male who is in the hospital a lot for multitude of medical problems including end- stage renal disease previously on hemodialysis baseline creatinine 3.5 and recurrent left lower extremity cellulitis along with hypertension and severe arthritis prednisone-dependent who presented to the ER with fever and cough found to have influenza B and elevated creatinine with chest pain in need of Cardiology evaluation and Tamiflu and close monitoring for decompensation. Patient is DO NOT RESUSCITATE and his prognosis has been poor for several years and he is in the hospital about every 2 weeks. He reports that the cough is about the same reports chest pain when he coughs and his creatinine did improve a little bit to 3.3 on supportive IV fluids but he does become volume overloaded very quickly. Cardiology has been consulted. Lactic acid did become elevated a she was maintain on IV fluids but could not increase fluids due to volume overload status on a chronic basis. Subjective/Events-last exam Pt states shortness of breath, cough are stable and have not improved since yesterday Continue to keep him up at night and prevent any rest Complains breakfast is dry and he is on fluid restriction, making normal dieting impossible Swelling in legs stable, no improvement Focused Exam Time of Focused Exam: 18:10 Objective Exam Vital Signs Vital Signs Date Time Temp Pulse Resp B/P (MAP) Pulse Ox O2 Delivery O2 Flow Rate FiO2 09/24/19 10:09 95 Room Air 09/24/19 07:00 107 09/24/19 04:00 36.3 20 163/84 (110) 09/23/19 10:12 1.50 09/21/19 13:49 21 Capillary Refill : Less Than 3 Seconds General Appearance: No Apparent Distress, WD/WN, Chronically ill HEENT: PERRL/EOMI, Pharynx Normal Neck: Non Tender, Supple Respiratory: Chest Non Tender, No Accessory Muscle Use, No Respiratory Distress, Rhonci, Wheezing, Other (profuse coughing during exam ) Cardiovascular: No Gallop, No Murmur, Tachycardia Extremity: No Calf Tenderness, Pedal Edema (+4 pitting b/l ) Neurologic/Psychiatric: Alert, Oriented x3, Normal Mood/Affect Skin: Normal Color, Warm/Dry Results/Procedures Lab Laboratory Tests 09/24/19 04:30 Patient resulted labs reviewed. Assessment/Plan Assessment and Plan Assess & Plan/Chief Complaint Assessment: GEARRDO Acute influenza B Leukocytosis - neutrophil predominance Atrial fibrillation CHF Dependent edema Hypoxia Wheezing Chest pain CAD Acute on chronic renal failure Colostomy status Hypertension Prednisone-dependent arthritis Plan: Hold lasix until kidney function returns CXR Midline access achieved continue tamivir therapy Serial troponins, BNP palliative care consult Continue PT/OT Clinical Quality Measures AMI/AHF: ASA po Prior to arrival: No DVT/VTE Risk/Contraindication: Risk Factor Score Per Nursin RFS Level Per Nursing on Admit: 4+=Very High TRIXIE WILDE DO 09/24/19 1521: Subjective Subjective/Events-last exam Creatinine 3.[address] Bocanegra Bicarb drip started Denies any pain Cough is much improved Check meds and labs Conferred with RN Will need to stay through the weekend Review of Systems Pulmonary: Dyspnea, Cough Objective Exam General Appearance: Anxious, Chronically ill, Obese Respiratory: Crackles, Wheezing Cardiovascular: Irregularly Irregular, Tachycardia Extremity: Pedal Edema Neurologic/Psychiatric: Alert, Oriented x3, No Motor/Sensory Deficits, Normal Mood/Affect Assessment/Plan Assessment and Plan Assess & Plan/Chief Complaint Bicarb drip Appreciate Dr. Bocanegra Appreciate Cardiology Monitor renal function closely Prognosis poor Diagnosis/Problems Diagnosis/Problems (1) Influenza B Status: Acute (2) Elevated troponin I level Status: Acute (3) Diabetes mellitus Status: Chronic (4) Anemia (5) Generalized weakness Status: Acute (6) CAD (coronary artery disease) Status: Chronic (7) Dyspnea (8) Hypertension Status: Chronic (9) Colostomy care Status: Chronic (10) Chronic atrial fibrillation Status: Chronic (11) COPD with acute exacerbation Status: Acute (12) DVT prophylaxis Status: Acute (13) Acute renal failure superimposed on stage 3 chronic kidney disease Status: Acute (14) Stented coronary artery Status: Acute Supervisory-Addendum Brief Verification & Attestation Participated in pt care: history, MDM, physical Personally performed: exam, history, MDM, supervision of care Care discussed with: Medical Student Procedures: n/a Results interpretation: Verified all documentation Verification and Attestation of Medical Student E/M Service A medical student performed and documented this service in my presence. I reviewed and verified all information documented by the medical student and made modifications to such information, when appropriate. I personally performed the physical exam and medical decision making. Trixie Wilde, Sep 24, 2019,21:12 BRICE SANTOYO,MED STUDENT Sep 24, 2019 09:28 TRIXIE WILDE DO Sep 24, 2019 15:21
--- NOTE | 2019-09-24 10:01 | Physical Therapy Daily Note ---
PT Daily Note-Current Subjective Patient agrees to PT. Refuses use of gait belt with ambulation. Mental Status Patient Orientation: Normal For Age Transfers SCALE: Activities may be completed with or without assistive devices. 0-Hnbgocktlg-ozjacbm completes the activity by him/herself with no assistance from a helper. 5-Set-up or Clean-up Assistance-helper sets up or cleans up; patient completes activity. [place] assists only prior to or following the activity. 4-Supervision or Touching Assistance-helper provides verbal cues and/or touching/steadying and/or contact guard assistance as patient completes activity. Assistance may be provided throughout the activity or intermittently. 3-Partial/Moderate Assistance-helper does LESS THAN HALF the effort. [place] lifts, holds or supports trunk or limbs, but provides less than half the effort. 2-Substantial/Maximal Assistance-helper does MORE THAN HALF the effort. [place] lifts or holds trunk or limbs and provides more than half the effort. 9-Pnesyhkhp-izvrhf does ALL the effort. Patient does none of the effort to complete the activity. Or, the assistance of 2 or more helpers is required for the patient to complete the activity. If activity was not attempted, code reason: 7-Patient Refused. 9-Not Applicable-not attempted and the patient did not perform the activity before the current illness, exacerbation or injury. 10-Not Attempted due to Environmental Limitations-(lack of equipment, weather restraints, etc.). 88-Not Attempted due to Medical Conditions or Safety Concerns. Roll Left & Right (QC): 6 Sit to Lying (QC): 6 Lying to Sitting/Side of Bed(Q: 6 Sit to Stand (QC): 6 Chair/Ikq-ky-Fgmsw Xfer(QC): 6 Gait Training Does the Patient Walk?: Yes Distance: 50' Walk 10 feet (QC): 6 Walk 50 ft with 2 Turns(QC): 6 Gait Assistive Device: FWW slow,steady gait sequence Exercises Seated Therapy Exercises: Ankle pumps, Long arc quads Seated Reps: 15 Assessment Patient tolerated treatment well and is up in recliner with needs met. PT to increase activity as tolerated by patient. PT Snf Goals Snf Goals PT Snf Goals Time Frame: Sep 30, 2019 Sit to Lying (QC): 6 Lying-Sitting on Side/Bed(QC): 6 Sit to Stand (QC): 6 Walk 50ft with 2 Turns (QC): 6 Walk 150 ft (QC): 6 PT Plan Treatment/Plan Treatment Plan: Continue Plan of Care Treatment Plan: Bed Mobility, Education, Functional Activity Jason, Functional Strength, Gait, Safety, Therapeutic Exercise, Transfers Treatment Duration: Sep 30, 2019 Frequency: 6 times per week Estimated Hrs Per Day: .25 hour per day Patient and/or Family Agrees t: Yes Time/GCodes Time In: 843 Time Out: 855 Total Billed Treatment Time: 12 Total Billed Treatment 1 visit FA 12 min SOLA TRACY PT Sep 24, 2019 10:01
--- NOTE | 2019-09-24 10:08 | NUR ---
PALLIATIVE CARE RN: Spoke to patient this morning and updated him on the plan for a meeting with Royer Mathis and his daughter this afternoon. He reports that he has chest congestion and he "is not going anywhere until he is ready." Will talk to Dr. Wilde .
[2019-09-24] MEDS: RT-BUDESONIDE NEBS 0.5 MG/2ML (PULMICORT) AMP INH SCH ×2 (10:09→21:42)
--- NOTE | 2019-09-24 10:21 | Pulmonary Progress Note ---
Subjective Time Seen by a Provider: 10:25 Subjective/Events-last exam pt complains of SOB. Sepsis Event Evaluation Height, Weight, BMI Height: 5'7.00" Weight: 194lbs. 2.0oz. 88.316867qt; 34.07 BMI Method:Stated Focused Exam Time of Focused Exam: 18:10 Exam Exam Vital Signs Date Time Temp Pulse Resp B/P (MAP) Pulse Ox O2 Delivery O2 Flow Rate FiO2 09/24/19 07:00 107 09/24/19 04:00 36.3 96 20 163/84 (110) 94 Room Air 09/24/19 01:00 117 09/24/19 00:00 36.7 110 22 152/88 (109) 95 Room Air 09/23/19 20:00 36.5 91 21 150/94 (112) 98 Room Air 09/23/19 20:00 Room Air 09/23/19 19:21 97 Room Air 09/23/19 19:00 109 09/23/19 16:00 37.0 97 21 137/93 (108) 97 Room Air 09/23/19 15:47 97 Room Air 09/23/19 12:25 102 09/23/19 12:00 110 18 123/85 (98) 96 Room Air I & O 09/24/19 07:00 Intake Total 1875 ml Output Total 2550 ml Balance -675 ml Height & Weight Height: 5'7.00" Weight: 194lbs. 2.0oz. 88.462221ym; 34.07 BMI Method:Stated General Appearance: WD/WN, Anxious, Chronically ill, Mild Distress HEENT: PERRL/EOMI, Pharynx Normal Neck: Non Tender, Supple Respiratory: Chest Non Tender, No Accessory Muscle Use, No Respiratory Distress, Rhonci, Wheezing, Other (profuse coughing during exam ) Cardiovascular: No Gallop, No Murmur, Tachycardia Capillary Refill: Less Than 3 Seconds Peripheral Pulses: 2+ Radial Pulses (R), 2+ Radial Pulses (L) Extremity: No Calf Tenderness, Pedal Edema (+4 pitting b/l ) Neurologic/Psychiatric: Alert, Oriented x3, Normal Mood/Affect Skin: Normal Color, Warm/Dry Lymphatic: No Adenopathy Results Lab Laboratory Tests 09/23/19 03:42 09/24/19 04:30 Assessment/Plan Assessment/Plan Acute influenza B -Tamiflu -Monitor Acute bronchitis with coughing and expiratory wheezing -solumedrol 40 Q 6 -Robitussin with codeine Acute Sepsis -Pt is currently on Flagyl and Omnicef metabolic lactic acidosis -Monitor -IVF -- Change to Bicarb gtt Hyperkalemia -2amps of bicarb and add bicarb gtt -Give 30 kayexalate -Monitor Anemia -Monitor Afib -Cardiology following CKD stage IV- hx of needing HD -monitor close gentle hydration secondary to CHF Weakness/debility -PT/OT CAD s/p cath with stent placement 11/10 Acute diastolic CHF -Monitor close diastolic heart dysfunction LORNA VERA DO Sep 24, 2019 10:20
[2019-09-24] MEDS ORDERED: SODIUM BICARB 8.4% 50 MEQ/50 ML VIAL IV NR (10:30)
[2019-09-24] MEDS ORDERED: SOD POLYSTERENE 15 GM/60 ML (KAYEXALATE) UNIT DOSE PO NR (10:30)
[2019-09-24] MEDS: PANTOPRAZOLE 40 MG (PROTONIX) TAB PO SCH (10:55)
[2019-09-24] MEDS: CEFDINIR 300 MG (OMNICEF) CAP PO SCH ×2 (10:55→21:29)
[2019-09-24] MEDS: metroNIDAZOLE 500 MG/100 ML IVPB (PRE-MIX) IV SCH ×2 (10:55→21:27)
[2019-09-24] MEDS: APIXABAN 2.5 MG (ELIQUIS) TABLET PO SCH ×2 (10:55→21:29)
[2019-09-24] MEDS: ASPIRIN E.C. 81 MG (ECOTRIN) TAB PO SCH (10:55)
[2019-09-24] MEDS: guaiFENesin (MUCINEX) 600 MG TAB PO SCH ×2 (10:55→21:29)
[2019-09-24] MEDS: OSELTAMIVIR 30 MG (TAMIFLU) CAPSULE PO SCH (10:56)
[2019-09-24] MEDS: meTOproloL SUCCINATE 50 MG (TOPROL XL) TAB PO SCH (10:56)
[2019-09-24] MEDS ORDERED: FUROSEMIDE 40 MG/4 ML INJ (LASIX) IVP ONE (11:30)
--- NOTE | 2019-09-24 11:35 | Occupational Ther Daily Note ---
OT Current Status-Daily Note Subjective Pt seen in recliner chair, agreeable to OT tx session. Pt states moderate pain "everywhere." Pt does not report pain in specific body region. Mental Status/Objective Patient Orientation: Normal For Age Attachments: Colostomy/Ileostomy, Telemetry ADL-Treatment Therapy Code Descriptions/Definitions Functional [place] Measure: 0=Not Assessed/NA 4=Minimal Assistance 1=Total Assistance 5=Supervision or Setup 2=Maximal Assistance 6=Modified [place] 3=Moderate Assistance 7=Complete IndependenceSCALE: Activities may be completed with or without assistive devices. 2-Krtqszgypf-axcixem completes the activity by him/herself with no assistance from a helper. 5-Set-up or Clean-up Assistance-helper sets up or cleans up; patient completes activity. [place] assists only prior to or following the activity. 4-Supervision or Touching Assistance-helper provides verbal cues and/or touching/steadying and/or contact guard assistance as patient completes activity. Assistance may be provided throughout the activity or intermittently. 3-Partial/Moderate Assistance-helper does LESS THAN HALF the effort. [place] lifts, holds or supports trunk or limbs, but provides less than half the effort. 2-Substantial/Maximal Assistance-helper does MORE THAN HALF the effort. [place] lifts or holds trunk or limbs and provides more than half the effort. 7-Suirtumjk-rmpdwo does ALL the effort. Patient does none of the effort to complete the activity. Or, the assistance of 2 or more helpers is required for the patient to complete the activity. If activity was not attempted, code reason: 7-Patient Refused. 9-Not Applicable-not attempted and the patient did not perform the activity before the current illness, exacerbation or injury. 10-Not Attempted due to Environmental Limitations-(lack of equipment, weather restraints, etc.). 88-Not Attempted due to Medical Conditions or Safety Concerns. Eating (QC): 6 (brings water to mouth ) Oral Hygiene (QC): 7 Bathing Location: L Arm, R Arm, Chest, Abdomen Shower/Bathe Self (QC): 4 (Pt completed UB washing on this date, denies LB washing. Able to reach all areas but back. ) Upper Body Dressing (QC): 5 (s/u for gown.) Other Treatment Pt seen in recliner chair, agrees to strengthening and modified bathing tasks. Pt completes UB exercises with yellow theraband- back flies, biceps, and triceps (10 reps bilaterally). Pt requires max cues for use of theraband, tension, and positioning. Pt states he probably won't complete exercises while not in therapy as he does not like the bands. Pt encouraged to move arms without instead. Pt completes UB bathing with wipes, states he hasn't changed gown since admission. Pt changes gown and remains in chair, denies other ADLs. 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 Pt left in room with nursing, call light in reach, all needs met. Education OT Patient Education: Correct positioning, Exercise program, Home exercise program, Modified ADL techniques, Purpose of tx/functional activities Teaching Recipient: Patient Teaching Methods: Demonstration, Discussion Response to Teaching: Verbalize Understanding, Return Demonstration, Reinforcement Needed OT Building And Grounds Supervisor Goals Building And Grounds Supervisor Goals Time Frame: Sep 30, 2019 Eating (QC): 6 (met) Oral Hygiene (QC): 6 Toileting Hygiene (QC): 6 Shower/Bathe Self (QC): 6 Upper Body Dressing (QC): 6 Lower Body Dressing (QC): 6 On/Off Footwear (QC): 6 Additional Goals: 1-Demonstrate ADL Tasks, 2-Verbalize Understanding, 3-ImproveStrength/Jason 1=Demonstrate adherence to instructed precautions during ADL tasks. 2=Patient will verbalize/demonstrate understanding of assistive devices/modifications for ADL. 3=Patient will improve strength/tolerance for activity to enable patient to perform ADL's. OT Education/Plan Problem List/Assessment Assessment: Decreased Activ Tolerance, Edema, Impaired Funct Balance, Impaired I ADL's, Impaired Self-Care Skills Discharge Recommendations Plan/Recommendations: Continue POC Treatment Plan/Plan of Care Treatment,Training & Education: Yes Patient would benefit from OT for education, treatment and training to promote independence in ADL's, mobility, safety and/or upper extremity function for ADL's. Plan of Care: ADL Retraining, Functional Mobility, Group Exercise/Act as Ind, UE Funct Exercise/Act Treatment Duration: Sep 30, 2019 Frequency: 5 times per week Estimated Hrs Per Day: .25 hour per day Agreement: Yes Rehab Potential: Good Time/GCodes Start Time: 10:43 Stop Time: 11:05 Total Time Billed (hr/min): 22 Billed Treatment Time 1, ADL (22) LETHA SUERO OTR Sep 24, 2019 11:35
[2019-09-24] MEDS: SODIUM BICARBONATE 8.4% VIAL 75 MEQ in 1/2 NS IV SOLUTION 1,000 ML IV SCH ×2 (12:10→23:22)
[2019-09-24 12:45] VITALS: BP 133/71
--- NOTE | 2019-09-24 12:56 | Cardiology Progress Note ---
Cardiology SOAP Progress Note Subjective: Improvement in shortness of breath. Objective: I&O/Vital Signs 09/25/19 09/25/19 09/25/19 09/25/19 07:00 08:00 08:00 12:00 Temp 36.2 36.2 Pulse 83 89 107 Resp 16 18 B/P (MAP) 145/80 (101) 156/90 (112) Pulse Ox 97 94 O2 Delivery Room Air Room Air Room Air 09/25/19 13:00 Pulse 98 09/25/19 00:00 Intake Total 400 ml Output Total 425 ml Balance -25 ml Weight (Pounds): 194 Weight (Ounces): 2.0 Weight (Calculated Kilograms): 88.842336 Constitutional: appears stated age, AAO x 3, apparent distress, well-developed, well-nourished Respiratory: chest is bilaterally symmetric, rhonchi, wheezing, other (decreased air entry bilaterally) Cardiovascular: irregularly irregular, tachycardia, S1 and S2 Gastrointestional: soft, audible bowel sounds; No spleenomegaly Extremities: non-tender, normal inspection; No clubbing, No cyanosis; significant edema Neurologic/Psychiatric: no motor/sensory deficits, alert, normal mood/affect, oriented x 3, power is 5/5 both on sides Skin: normal color, warm/dry, other (erythematous, swollen tender hot skin on the left lower extremity) Results/Procedures: Labs Laboratory Tests 09/24/19 20:16: Glucometer 343H 09/25/19 03:28: White Blood Count 12.7H, Red Blood Count 3.97L, Hemoglobin 10.9L, Hematocrit 36L , Mean Corpuscular Volume 90, Mean Corpuscular Hemoglobin 27, Mean Corpuscular Hemoglobin Concent 31L, Red Cell Distribution Width 16.1H, Platelet Count 210, Mean Platelet Volume 10.3, Neutrophils (%) (Auto) 90H, Lymphocytes (%) (Auto) 6L , Monocytes (%) (Auto) 4, Eosinophils (%) (Auto) 0, Basophils (%) (Auto) 0, Neutrophils # (Auto) 11.4H, Lymphocytes # (Auto) 0.8L, Monocytes # (Auto) 0.5, Eosinophils # (Auto) 0.0, Basophils # (Auto) 0.0, Sodium Level 139, Potassium Level 4.4, Chloride Level 106, Carbon Dioxide Level 19L, Anion Gap 14, Blood Urea Nitrogen 73H, Creatinine 3.08#H, Estimat Glomerular Filtration Rate 19, BUN/Creatinine Ratio 24, Glucose Level 411*H, Calcium Level 7.7L, Corrected Calcium 8.5, Total Bilirubin 0.3, Aspartate Amino Transf (AST/SGOT) 8, Alanine Aminotransferase (ALT/SGPT) 17, Alkaline Phosphatase 120, Total Protein 5.3L, Albumin 3.0L 09/25/19 11:24: Glucometer 307H Microbiology 09/21/19 MRSA Screen - Final, Complete MRSA not isolated 09/20/19 Urine Culture - Final, Complete YEAST 09/20/19 Blood Culture - Preliminary, Resulted No growth A/P: Assessment/Dx: Acute influenza B, Acute respiratory failure, Lactic acidosis, Atrial fibrillation with RVR, Likely type II myocardial infarction, Acute On chronic kidney injury, CAD, PCI to the LAD with drug-eluting stent in October 2018, Acute diastolic congestive heart failure Plan: Acute influenza B, defer to the primary team. Multiorgan involvement. With severe systemic manifestations including type II myocardial infarction and lactic acidosis. Acute respiratory failure, Lactic acidosis, Atrial fibrillation with RVR, continue Eliquis. Likely type II myocardial infarction, serial troponin. Acute On chronic kidney injury, hold IV fluids. Hold Lasix today for worsening kidney function. CAD, PCI to the LAD with drug-eluting stent in October 2018, continue Plavix, atorvastatin. I will like to hold off with coronary angiography as long as I can. Since his borderline troponin could be type II myocardial infarction due to severe sepsis related to influenza. Also acute on chronic kidney injury may be significantly worsen with contrast given during coronary angiography. I discussed with the patient and family and they both concur. Acute diastolic congestive heart failure, hold IV fluids. Lasix 80 mg IV times one. Hold Lasix today to worsening kidney function. Complicated patient with numerous active medical issues as above. Thank you for your consultation. Please call me if you have any questions. Mireille Clark MD, FACP, FACC, FSCAI, FHRS, CCDS Interventional Cardiology Cardiac Electrophysiology Vascular Medicine and Endovascular Interventions Focused Exam Time of Focused Exam: 18:10 Clinical Quality Measures AMI/AHF: ASA po Prior to arrival: Abner Nolasco MD Sep 24, 2019 12:56
[2019-09-24 15:04] VITALS: BP 133/71
[2019-09-24 16:00] VITALS: BP 132/89
[2019-09-24] MEDS: TAMSULOSIN 0.4 MG (FLOMAX) CAP PO SCH (18:37)
[2019-09-24 20:05] VITALS: BP 141/82
[2019-09-25] VITALS: BP 118/81
[2019-09-25] MEDS: methylPREDNISolone 40 MG/ML (Solu-MEDROL) VIAL IV SCH (00:31)
[2019-09-25 03:56] LABS: BASOPHILS % (AUTO) 0 % (0-10); EOSINOPHILS % (AUTO) 0 % (0-10); HEMATOCRIT 36 % (40-54); HEMOGLOBIN 10.9 G/DL (13.3-17.7); LYMPHOCYTES # (AUTO) 0.8 X 10^3 (1.0-4.0); LYMPHOCYTES % (AUTO) 6 % (12-44); MEAN CORPUSCULAR HGB CONC 31 G/DL (32-36); MEAN CORPUSCULAR VOLUME 90 FL (80-99); MEAN PLATELET VOLUME 10.3 FL (7.4-10.4); MONOCYTES # (AUTO) 0.5 X 10^3 (0.0-1.0); MONOCYTES % (AUTO) 4 % (0-12); NEUTROPHILS # (AUTO) 11.4 X 10^3 (1.8-7.8); NEUTROPHILS % (AUTO) 90 % (42-75); PLATELET COUNT 210 10^3/uL (130-400); RED CELL DISTRIBUTION WIDTH 16.1 % (10.0-14.5); WHITE BLOOD COUNT 12.7 10^3/uL (4.3-11.0)
[2019-09-25 04:00] VITALS: BP 140/77
[2019-09-25 04:02] LABS: MEAN CORPUSCULAR HEMOGLOBIN 27 PG (25-34)
[2019-09-25 04:17] LABS: BILIRUBIN,TOTAL 0.3 MG/DL (0.1-1.0); CALCIUM 7.7 MG/DL (8.5-10.1); CREATININE SERUM 3.08 MG/DL (0.60-1.30); POTASSIUM 4.4 MMOL/L (3.6-5.0); TOTAL PROTEIN 5.3 GM/DL (6.4-8.2)
[2019-09-25] MEDS: inSUlin ASPART (NovoLOG) 1 UNIT/0.01 ML (CHARGE PER UNIT) SC SCH ×2 (05:54→17:54)
[2019-09-25] MEDS: SODIUM BICARBONATE 8.4% VIAL 75 MEQ in 1/2 NS IV SOLUTION 1,000 ML IV SCH ×2 (05:54→12:31)
[2019-09-25] MEDS ORDERED: inSUlin ASPART (NovoLOG) 1 UNIT/0.01 ML (CHARGE PER UNIT) SC ONE (06:00)
--- NOTE | 2019-09-25 07:15 | Pulmonary Progress Note ---
Subjective Time Seen by a Provider: 07:11 Subjective/Events-last exam Pt is on RA with good oxygen saturation. Sepsis Event Evaluation Height, Weight, BMI Height: 5'7.00" Weight: 194lbs. 2.0oz. 88.764813df; 34.07 BMI Method:Stated Focused Exam Time of Focused Exam: 18:10 Exam Exam Vital Signs Date Time Temp Pulse Resp B/P (MAP) Pulse Ox O2 Delivery O2 Flow Rate FiO2 09/25/19 04:00 36.2 88 18 140/77 (98) 97 Room Air 09/25/19 01:00 90 09/25/19 00:00 36.3 90 20 118/81 (93) 96 Room Air 09/24/19 20:05 36.6 105 20 141/82 (101) 98 Room Air 09/24/19 20:00 Room Air 09/24/19 19:00 99 09/24/19 16:00 36.5 100 20 132/89 (103) 97 Room Air 09/24/19 15:04 36.3 82 95 09/24/19 12:45 36.3 83 16 133/71 (91) 90 Room Air 09/24/19 12:26 99 09/24/19 10:09 95 Room Air 09/24/19 08:20 Room Air I & O 09/25/19 07:00 Intake Total 850 ml Output Total 975 ml Balance -125 ml Height & Weight Height: 5'7.00" Weight: 194lbs. 2.0oz. 88.115740kd; 34.07 BMI Method:Stated General Appearance: No Apparent Distress, WD/WN, Anxious, Chronically ill HEENT: PERRL/EOMI, Pharynx Normal Neck: Non Tender, Supple Respiratory: Chest Non Tender, No Accessory Muscle Use, No Respiratory Distress, Crackles, Decreased Breath Sounds Cardiovascular: No Gallop, No Murmur, Tachycardia Capillary Refill: Less Than 3 Seconds Peripheral Pulses: 2+ Radial Pulses (R), 2+ Radial Pulses (L) Extremity: No Calf Tenderness, Pedal Edema (+4 pitting b/l ) Neurologic/Psychiatric: Alert, Oriented x3, Normal Mood/Affect Skin: Normal Color, Warm/Dry Lymphatic: No Adenopathy Results Lab Laboratory Tests 09/24/19 04:30 09/25/19 03:28 Assessment/Plan Assessment/Plan Acute influenza B -s/p Tamiflu -Monitor Acute bronchitis -solumedrol 40 Q 6 -- Change to Prendisone -Robitussin with codeine Sepsis Flagyl and Omnicef metabolic lactic acidosis - improving -Monitor -IVF -- Change Bicarb gtt decrease to 75cc/hr Hyperkalemia -2amps of bicarb and add bicarb gtt -Give 30 kayexalate -Monitor Anemia -Monitor Afib -Cardiology following CKD stage IV- hx of needing HD -- mild improvement -monitor close gentle hydration secondary to CHF --Please no Lasix at this time. Weakness/debility -PT/OT CAD s/p cath with stent placement 11/10 Acute diastolic CHF -Monitor close diastolic heart dysfunction LORNA VERA DO Sep 25, 2019 07:15
[2019-09-25 08:00] VITALS: BP 145/80
[2019-09-25] MEDS ORDERED: predniSONE 20 MG TAB PO SCH (09:00)
[2019-09-25] MEDS: metroNIDAZOLE 500 MG/100 ML IVPB (PRE-MIX) IV SCH (09:47)
[2019-09-25] MEDS: guaiFENesin (MUCINEX) 600 MG TAB PO SCH ×2 (09:50→21:28)
[2019-09-25] MEDS: PANTOPRAZOLE 40 MG (PROTONIX) TAB PO SCH (09:50)
[2019-09-25] MEDS: CEFDINIR 300 MG (OMNICEF) CAP PO SCH ×2 (09:50→21:28)
[2019-09-25] MEDS: OSELTAMIVIR 30 MG (TAMIFLU) CAPSULE PO SCH (09:51)
[2019-09-25] MEDS: APIXABAN 2.5 MG (ELIQUIS) TABLET PO SCH ×2 (09:52→21:28)
[2019-09-25] MEDS: meTOproloL SUCCINATE 50 MG (TOPROL XL) TAB PO SCH (09:52)
[2019-09-25] MEDS: ASPIRIN E.C. 81 MG (ECOTRIN) TAB PO SCH (10:15)
[2019-09-25] MEDS: RT-BUDESONIDE NEBS 0.5 MG/2ML (PULMICORT) AMP INH SCH (11:36)
[2019-09-25] MEDS: RT-ALBUTEROL/IPRATROPIUM 3 ML (DUONEB) VIAL INH SCH ×4 (11:37→21:00)
[2019-09-25 12:00] VITALS: BP 156/90
--- NOTE | 2019-09-25 12:11 | Progress Note - Hospitalist ---
Subjective HPI/CC On Admission Date Seen by Provider: Sep 25, 2019 Time Seen by Provider: 11:30 Chief complaint: Influenza B with wheezing and hypoxia History of present illness: This is a very complicated 89-year-old white male who is in the hospital a lot for multitude of medical problems including end- stage renal disease previously on hemodialysis baseline creatinine 3.5 and recurrent left lower extremity cellulitis along with hypertension and severe arthritis prednisone-dependent who presented to the ER with fever and cough found to have influenza B and elevated creatinine with chest pain in need of Cardiology evaluation and Tamiflu and close monitoring for decompensation. Patient is DO NOT RESUSCITATE and his prognosis has been poor for several years and he is in the hospital about every 2 weeks. He reports that the cough is about the same reports chest pain when he coughs and his creatinine did improve a little bit to 3.3 on supportive IV fluids but he does become volume overloaded very quickly. Cardiology has been consulted. Lactic acid did become elevated a she was maintain on IV fluids but could not increase fluids due to volume overload status on a chronic basis. Subjective/Events-last exam Patient doing much better Still negative outlook but I tried to reassure and be positive for the patient Weaning O2 Bicarb infusion working very well for the patient HCO3 19 this morning Appreciate Bailey Bocanegra and Eduardo's help on this very complex patient Colostomy bag functioning well Creatinine 3.0 Cough is improved Legs are much improved today Conferred with RN Reviewed meds and labs Review of Systems General: Fatigue Pulmonary: Dyspnea, Cough Cardiovascular: Edema Focused Exam Time of Focused Exam: 18:10 Objective Exam Vital Signs Vital Signs Date Time Temp Pulse Resp B/P (MAP) Pulse Ox O2 Delivery O2 Flow Rate FiO2 09/25/19 08:00 36.2 89 16 145/80 (101) 97 Room Air 09/23/19 10:12 1.50 09/21/19 13:49 21 Capillary Refill : Less Than 3 Seconds General Appearance: No Apparent Distress, WD/WN, Chronically ill, Obese Respiratory: No Accessory Muscle Use, No Respiratory Distress, Crackles, Decreased Breath Sounds, Wheezing Cardiovascular: No Edema, No Gallop, No JVD, No Murmur, Normal Peripheral Pulses, Irregularly Irregular Extremity: Pedal Edema Neurologic/Psychiatric: Alert, Oriented x3, No Motor/Sensory Deficits, Normal Mood/Affect Results/Procedures Lab Laboratory Tests 09/25/19 03:28 Patient resulted labs reviewed. Assessment/Plan Assessment and Plan Assess & Plan/Chief Complaint Assessment: Acute influenza B on Tamiflu Hypoxia improved Wheezing improved Chest pain resolved CAD AECOPD PNA Acute on chronic renal failure improved/stable Colostomy status Hypertension Prednisone-dependent arthritis Plan: Home meds Monitor creatinine Tamiflu IV fluids of bicarb drip Lasix 40mg IV as ordered Oxygen Nebulizers Supportive care DO NOT RESUSCITATE Prognosis poor OOB Transfer to 4th floor Diagnosis/Problems Diagnosis/Problems (1) Influenza B Status: Acute (2) Elevated troponin I level Status: Acute (3) Diabetes mellitus Status: Chronic (4) Anemia (5) Generalized weakness Status: Acute (6) CAD (coronary artery disease) Status: Chronic (7) Dyspnea (8) Hypertension Status: Chronic (9) Colostomy care Status: Chronic (10) Chronic atrial fibrillation Status: Chronic (11) COPD with acute exacerbation Status: Acute (12) DVT prophylaxis Status: Acute (13) Acute renal failure superimposed on stage 3 chronic kidney disease Status: Acute (14) Stented coronary artery Status: Acute Clinical Quality Measures AMI/AHF: ASA po Prior to arrival: No DVT/VTE Risk/Contraindication: Risk Factor Score Per Nursin RFS Level Per Nursing on Admit: 4+=Very High JACKELINE CEE DO Sep 25, 2019 12:11
--- NOTE | 2019-09-25 14:04 | Physical Therapy Daily Note ---
PT Daily Note-Current Subjective Pt agreeable to ambulation. Very particular about how the process was going to work but was motivated for activity. Mental Status Patient Orientation: Normal For Age Transfers SCALE: Activities may be completed with or without assistive devices. 2-Pwkcrvqhpq-fbtqatg completes the activity by him/herself with no assistance from a helper. 5-Set-up or Clean-up Assistance-helper sets up or cleans up; patient completes activity. [place] assists only prior to or following the activity. 4-Supervision or Touching Assistance-helper provides verbal cues and/or touching/steadying and/or contact guard assistance as patient completes activity. Assistance may be provided throughout the activity or intermittently. 3-Partial/Moderate Assistance-helper does LESS THAN HALF the effort. [place] lifts, holds or supports trunk or limbs, but provides less than half the effort. 2-Substantial/Maximal Assistance-helper does MORE THAN HALF the effort. [place] lifts or holds trunk or limbs and provides more than half the effort. 4-Clbbgksvq-cbfsjm does ALL the effort. Patient does none of the effort to complete the activity. Or, the assistance of 2 or more helpers is required for the patient to complete the activity. If activity was not attempted, code reason: 7-Patient Refused. 9-Not Applicable-not attempted and the patient did not perform the activity before the current illness, exacerbation or injury. 10-Not Attempted due to Environmental Limitations-(lack of equipment, weather restraints, etc.). 88-Not Attempted due to Medical Conditions or Safety Concerns. Gait Training Ambulate 200ft without device, SBA and assist for IV pole. Assessment Pt was stable during ambulation including safe turns. PT Senior Living Goals Senior Living Goals PT Paste Maker Goals Time Frame: Sep 30, 2019 Sit to Lying (QC): 6 Lying-Sitting on Side/Bed(QC): 6 Sit to Stand (QC): 6 Walk 50ft with 2 Turns (QC): 6 Walk 150 ft (QC): 6 PT Plan Problem List Problem List: Activity Tolerance, Gait Treatment/Plan Treatment Plan: Continue Plan of Care Treatment Plan: Bed Mobility, Education, Functional Activity Jason, Functional Strength, Gait, Safety, Therapeutic Exercise, Transfers Treatment Duration: Sep 30, 2019 Frequency: 6 times per week Estimated Hrs Per Day: .25 hour per day Patient and/or Family Agrees t: Yes Time/GCodes Time In: 900 Time Out: 916 Total Billed Treatment Time: 16 Total Billed Treatment visit, gait 16min KOBE LAZARO PT Sep 25, 2019 14:04
--- NOTE | 2019-09-25 16:05 | NUR ---
Report received from Alex JOLLEY, patient to room 433, patient oriented to room and call light. patient voices no concerns at this time. Will assume care of patient.
--- NOTE | 2019-09-25 16:19 | NUR ---
PT REPORT GIVEN TO EMELYN JOLLEY AT 1605. PT TRANSPORTED TO ROOM 433. PT BELONGINGS TRANSFERRED WITH PT.
--- NOTE | 2019-09-25 16:34 | Cardiology Progress Note ---
Cardiology SOAP Progress Note Subjective: Patient upset today with some family issues. Still not feeling very good. Objective: I&O/Vital Signs 09/25/19 09/25/19 09/25/19 09/25/19 07:00 08:00 08:00 12:00 Temp 36.2 36.2 Pulse 83 89 107 Resp 16 18 B/P (MAP) 145/80 (101) 156/90 (112) Pulse Ox 97 94 O2 Delivery Room Air Room Air Room Air 09/25/19 13:00 Pulse 98 09/25/19 00:00 Intake Total 400 ml Output Total 425 ml Balance -25 ml Weight (Pounds): 194 Weight (Ounces): 2.0 Weight (Calculated Kilograms): 88.018139 Constitutional: appears stated age, AAO x 3, apparent distress, well-developed, well-nourished Respiratory: chest is bilaterally symmetric, rhonchi, wheezing, other (decreased air entry bilaterally) Cardiovascular: irregularly irregular, tachycardia, S1 and S2 Gastrointestional: soft, audible bowel sounds; No spleenomegaly Extremities: non-tender, normal inspection; No clubbing, No cyanosis; significant edema Neurologic/Psychiatric: no motor/sensory deficits, alert, normal mood/affect, oriented x 3, power is 5/5 both on sides Skin: normal color, warm/dry, other (erythematous, swollen tender hot skin on the left lower extremity) Results/Procedures: Labs Laboratory Tests 09/24/19 20:16: Glucometer 343H 09/25/19 03:28: White Blood Count 12.7H, Red Blood Count 3.97L, Hemoglobin 10.9L, Hematocrit 36L , Mean Corpuscular Volume 90, Mean Corpuscular Hemoglobin 27, Mean Corpuscular Hemoglobin Concent 31L, Red Cell Distribution Width 16.1H, Platelet Count 210, Mean Platelet Volume 10.3, Neutrophils (%) (Auto) 90H, Lymphocytes (%) (Auto) 6L , Monocytes (%) (Auto) 4, Eosinophils (%) (Auto) 0, Basophils (%) (Auto) 0, Neutrophils # (Auto) 11.4H, Lymphocytes # (Auto) 0.8L, Monocytes # (Auto) 0.5, Eosinophils # (Auto) 0.0, Basophils # (Auto) 0.0, Sodium Level 139, Potassium Level 4.4, Chloride Level 106, Carbon Dioxide Level 19L, Anion Gap 14, Blood Urea Nitrogen 73H, Creatinine 3.08#H, Estimat Glomerular Filtration Rate 19, BUN/Creatinine Ratio 24, Glucose Level 411*H, Calcium Level 7.7L, Corrected Calcium 8.5, Total Bilirubin 0.3, Aspartate Amino Transf (AST/SGOT) 8, Alanine Aminotransferase (ALT/SGPT) 17, Alkaline Phosphatase 120, Total Protein 5.3L, Albumin 3.0L 09/25/19 11:24: Glucometer 307H Microbiology 09/21/19 MRSA Screen - Final, Complete MRSA not isolated 09/20/19 Urine Culture - Final, Complete YEAST 09/20/19 Blood Culture - Preliminary, Resulted No growth A/P: Assessment/Dx: Acute influenza B, Acute respiratory failure, Lactic acidosis, Atrial fibrillation with RVR, Likely type II myocardial infarction, Acute On chronic kidney injury, CAD, PCI to the LAD with drug-eluting stent in October 2018, Acute diastolic congestive heart failure Plan: Acute influenza B, defer to the primary team. Multiorgan involvement. With severe systemic manifestations including type II myocardial infarction and lactic acidosis. Acute respiratory failure, Lactic acidosis, Atrial fibrillation with RVR, continue Eliquis. Likely type II myocardial infarction, serial troponin. Acute On chronic kidney injury, hold IV fluids. Hold Lasix since 09/24/2019 for worsening kidney function. CAD, PCI to the LAD with drug-eluting stent in October 2018, continue Plavix, atorvastatin. I will like to hold off with coronary angiography as long as I can. Since his borderline troponin could be type II myocardial infarction due to severe sepsis related to influenza. Also acute on chronic kidney injury may be significantly worsen with contrast given during coronary angiography. I discussed with the patient and family and they both concur. Acute diastolic congestive heart failure, hold IV fluids. Lasix 80 mg IV times one on 09/23/2019. Hold Lasix since due to worsening kidney function. Complicated patient with numerous active medical issues as above. Thank you for your consultation. Please call me if you have any questions. Mireille Clark MD, FACP, FACC, FSCAI, FHRS, CCDS Interventional Cardiology Cardiac Electrophysiology Vascular Medicine and Endovascular Interventions Focused Exam Time of Focused Exam: 18:10 Clinical Quality Measures AMI/AHF: ASA po Prior to arrival: No YAMILETD,M JERRY MD Sep 25, 2019 16:34
[2019-09-25 16:40] VITALS: BP 129/67
[2019-09-25] MEDS: TAMSULOSIN 0.4 MG (FLOMAX) CAP PO SCH (17:53)
[2019-09-25] MEDS: CALCIUM CARBONATE 500 MG (TUMS) TAB.CHEW PO SCH (17:54)
[2019-09-25 20:00] VITALS: BP 146/94
[2019-09-26] VITALS (7 sets, daily range): BP systolic 132–172; BP diastolic 78–95
[2019-09-26] MEDS: SODIUM BICARBONATE 8.4% VIAL 75 MEQ in 1/2 NS IV SOLUTION 1,000 ML IV SCH ×2 (00:12→16:23)
[2019-09-26] MEDS: RT-ALBUTEROL/IPRATROPIUM 3 ML (DUONEB) VIAL INH SCH (03:54)
[2019-09-26 05:40] LABS: BASOPHILS # (AUTO) 0.1 10^3/uL (0.0-0.1); BASOPHILS % (AUTO) 0 % (0-10); EOSINOPHILS % (AUTO) 0 % (0-10); HEMATOCRIT 36 % (40-54); LYMPHOCYTES # (AUTO) 1.2 X 10^3 (1.0-4.0); LYMPHOCYTES % (AUTO) 8 % (12-44); MEAN CORPUSCULAR HEMOGLOBIN 28 PG (25-34); MEAN CORPUSCULAR HGB CONC 31 G/DL (32-36); MEAN CORPUSCULAR VOLUME 90 FL (80-99); MEAN PLATELET VOLUME 10.3 FL (7.4-10.4); MONOCYTES # (AUTO) 0.9 X 10^3 (0.0-1.0); MONOCYTES % (AUTO) 6 % (0-12); NEUTROPHILS # (AUTO) 12.8 X 10^3 (1.8-7.8); NEUTROPHILS % (AUTO) 86 % (42-75); PLATELET COUNT 178 10^3/uL (130-400); RED CELL DISTRIBUTION WIDTH 16.1 % (10.0-14.5); WHITE BLOOD COUNT 14.9 10^3/uL (4.3-11.0)
[2019-09-26 06:11] LABS: ALBUMIN 2.9 GM/DL (3.2-4.5); BILIRUBIN,TOTAL 0.4 MG/DL (0.1-1.0); CALCIUM 7.6 MG/DL (8.5-10.1); CREATININE SERUM 2.76 MG/DL (0.60-1.30); POTASSIUM 4.5 MMOL/L (3.6-5.0); TOTAL PROTEIN 5.5 GM/DL (6.4-8.2)
[2019-09-26] MEDS: CALCIUM CARBONATE 500 MG (TUMS) TAB.CHEW PO SCH ×3 (07:23→17:33)
[2019-09-26] MEDS: inSUlin ASPART (NovoLOG) 1 UNIT/0.01 ML (CHARGE PER UNIT) SC SCH ×3 (07:23→17:34)
--- NOTE | 2019-09-26 08:23 | Pulmonary Progress Note ---
Subjective Time Seen by a Provider: 08:17 Subjective/Events-last exam Pt appears to be improving Sepsis Event Evaluation Height, Weight, BMI Height: 5'7.00" Weight: 194lbs. 2.0oz. 88.676087vf; 34.07 BMI Method:Stated Focused Exam Time of Focused Exam: 18:10 Exam Exam Vital Signs Date Time Temp Pulse Resp B/P (MAP) Pulse Ox O2 Delivery O2 Flow Rate FiO2 09/26/19 08:00 36.5 83 20 155/85 (108) 95 Room Air 09/26/19 07:00 103 09/26/19 04:00 37.1 83 20 162/83 (109) 99 Room Air 09/26/19 01:00 96 09/26/19 00:00 36.2 79 20 139/80 (99) 95 Room Air 09/25/19 21:20 Room Air 09/25/19 20:00 36.0 81 20 146/94 (111) 96 Room Air 09/25/19 19:00 78 09/25/19 16:40 36.0 99 20 129/67 (87) 95 Room Air 09/25/19 13:00 98 09/25/19 12:00 36.2 107 18 156/90 (112) 94 Room Air I & O 09/26/19 07:00 Intake Total 2795 ml Output Total 1650 ml Balance 1145 ml Height & Weight Height: 5'7.00" Weight: 194lbs. 2.0oz. 88.131630ub; 34.07 BMI Method:Stated General Appearance: No Apparent Distress, WD/WN, Chronically ill HEENT: PERRL/EOMI, Normal ENT Inspection, Pharynx Normal, Moist Mucous Membranes Neck: Full Range of Motion, Normal Inspection, Non Tender Respiratory: No Respiratory Distress, Accessory Muscle Use, Crackles, Decreased Breath Sounds, Wheezing Cardiovascular: Irregularly Irregular, Tachycardia Capillary Refill: Less Than 3 Seconds Peripheral Pulses: 2+ Radial Pulses (R), 2+ Radial Pulses (L) Extremity: Pedal Edema Neurologic/Psychiatric: Alert, Oriented x3, No Motor/Sensory Deficits, Normal Mood/Affect Skin: Normal Color, Warm/Dry Lymphatic: No Adenopathy Results Lab Laboratory Tests 09/25/19 03:28 09/26/19 05:25 Assessment/Plan Assessment/Plan Acute influenza B -s/p Tamiflu -Monitor Acute bronchitis - Prednisone -Robitussin with codeine Sepsis Flagyl and Omnicef metabolic lactic acidosis - improving -Monitor -IVF -- Bicarb gtt - Will probably d/c tomorrow. Hyperkalemia -2amps of bicarb and add bicarb gtt -Give 30 kayexalate -Monitor Anemia -Monitor Afib -Cardiology following CKD stage IV- hx of needing HD -- mild improvement -monitor close gentle hydration secondary to CHF --Please no Lasix at this time. Weakness/debility -PT/OT CAD s/p cath with stent placement 11/10 Acute diastolic CHF -Monitor close diastolic heart dysfunction LORNA VERA DO Sep 26, 2019 08:23
[2019-09-26 08:49] LABS: MAGNESIUM 1.6 MG/DL (1.6-2.4); PHOSPHORUS 2.8 MG/DL (2.3-4.7)
[2019-09-26] MEDS ORDERED: TAMSULOSIN 0.4 MG (FLOMAX) CAP PO SCH (09:00)
[2019-09-26] MEDS: APIXABAN 2.5 MG (ELIQUIS) TABLET PO SCH ×2 (09:07→20:42)
[2019-09-26] MEDS: ASPIRIN E.C. 81 MG (ECOTRIN) TAB PO SCH (09:09)
[2019-09-26] MEDS: CEFDINIR 300 MG (OMNICEF) CAP PO SCH ×2 (09:10→20:42)
[2019-09-26] MEDS: guaiFENesin (MUCINEX) 600 MG TAB PO SCH ×2 (09:10→20:42)
[2019-09-26] MEDS: CLOPIDOGREL 75 MG (PLAVIX) TABLET PO SCH (09:10)
[2019-09-26] MEDS: PANTOPRAZOLE 40 MG (PROTONIX) TAB PO SCH (09:11)
[2019-09-26] MEDS: meTOproloL SUCCINATE 50 MG (TOPROL XL) TAB PO SCH (09:12)
--- NOTE | 2019-09-26 09:13 | NUR ---
NOTE THAT AM MEDS SCANNED BUT WOULD NOT FILE AWAY
[2019-09-26] MEDS: predniSONE 20 MG TAB PO SCH (10:50)
--- NOTE | 2019-09-26 13:06 | Progress Note - Hospitalist ---
Subjective HPI/CC On Admission Date Seen by Provider: Sep 26, 2019 Time Seen by Provider: 11:00 Chief complaint: Influenza B with wheezing and hypoxia History of present illness: This is a very complicated 89-year-old white male who is in the hospital a lot for multitude of medical problems including end- stage renal disease previously on hemodialysis baseline creatinine 3.5 and recurrent left lower extremity cellulitis along with hypertension and severe arthritis prednisone-dependent who presented to the ER with fever and cough found to have influenza B and elevated creatinine with chest pain in need of Cardiology evaluation and Tamiflu and close monitoring for decompensation. Patient is DO NOT RESUSCITATE and his prognosis has been poor for several years and he is in the hospital about every 2 weeks. He reports that the cough is about the same reports chest pain when he coughs and his creatinine did improve a little bit to 3.3 on supportive IV fluids but he does become volume overloaded very quickly. Cardiology has been consulted. Lactic acid did become elevated a she was maintain on IV fluids but could not increase fluids due to volume overload status on a chronic basis. 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 Oxygen weaned Review of Systems General: Fatigue Pulmonary: Dyspnea, Cough Focused Exam Time of Focused Exam: 18:10 Objective Exam Vital Signs Vital Signs Date Time Temp Pulse Resp B/P (MAP) Pulse Ox O2 Delivery O2 Flow Rate FiO2 09/26/19 19:00 115 09/26/19 16:01 35.8 22 139/95 (110) 95 Room Air 09/23/19 10:12 1.50 09/21/19 13:49 21 Capillary Refill : Less Than 3 Seconds General Appearance: No Apparent Distress, WD/WN, Chronically ill Respiratory: No Accessory Muscle Use, No Respiratory Distress, Crackles, Decreased Breath Sounds Cardiovascular: Irregularly Irregular Extremity: Pedal Edema Neurologic/Psychiatric: Alert, Oriented x3, No Motor/Sensory Deficits, Normal Mood/Affect Results/Procedures Lab Laboratory Tests 09/26/19 05:25 Patient resulted labs reviewed. Assessment/Plan Assessment and Plan Assess & Plan/Chief Complaint Assessment: Acute influenza B on Tamiflu Hypoxia improved Wheezing improved Chest pain resolved CAD AECOPD PNA Acute on chronic renal failure improved/stable Colostomy status Hypertension Prednisone-dependent arthritis Plan: Home meds Monitor creatinine Tamiflu IV fluids of bicarb drip Lasix 40mg IV as ordered Oxygen Nebulizers Supportive care DO NOT RESUSCITATE Prognosis poor OOB Transfer to 4th floor Diagnosis/Problems Diagnosis/Problems (1) Influenza B Status: Acute (2) Elevated troponin I level Status: Acute (3) Diabetes mellitus Status: Chronic (4) Anemia (5) Generalized weakness Status: Acute (6) CAD (coronary artery disease) Status: Chronic (7) Dyspnea (8) Hypertension Status: Chronic (9) Colostomy care Status: Chronic (10) Chronic atrial fibrillation Status: Chronic (11) COPD with acute exacerbation Status: Acute (12) DVT prophylaxis Status: Acute (13) Acute renal failure superimposed on stage 3 chronic kidney disease Status: Acute (14) Stented coronary artery Status: Acute Clinical Quality Measures AMI/AHF: ASA po Prior to arrival: No DVT/VTE Risk/Contraindication: Risk Factor Score Per Nursin RFS Level Per Nursing on Admit: 4+=Very High JACKELINE CEE DO Sep 26, 2019 13:06
--- NOTE | 2019-09-26 15:55 | Cardiology Progress Note ---
Cardiology SOAP Progress Note Subjective: Still short of breath. Objective: I&O/Vital Signs 09/26/19 09/26/19 09/26/19 09/26/19 04:00 07:00 08:00 08:03 Temp 37.1 36.5 Pulse 83 103 83 Resp 20 20 B/P (MAP) 162/83 (109) 155/85 (108) Pulse Ox 99 95 O2 Delivery Room Air Room Air Room Air 09/26/19 09/26/19 11:26 13:00 Temp 36.2 Pulse 83 103 Resp 20 B/P (MAP) 139/90 (106) Pulse Ox 97 O2 Delivery Room Air 09/25/19 23:59 Intake Total 1100 ml Output Total 1400 ml Balance -300 ml Weight (Pounds): 194 Weight (Ounces): 2.0 Weight (Calculated Kilograms): 88.736231 Constitutional: appears stated age, AAO x 3, apparent distress, well-developed, well-nourished Respiratory: chest is bilaterally symmetric, rhonchi, wheezing, other (decreased air entry bilaterally) Cardiovascular: irregularly irregular, tachycardia, S1 and S2 Gastrointestional: soft, audible bowel sounds; No spleenomegaly Extremities: non-tender, normal inspection; No clubbing, No cyanosis; significant edema Neurologic/Psychiatric: no motor/sensory deficits, alert, normal mood/affect, oriented x 3, power is 5/5 both on sides Skin: normal color, warm/dry, other (erythematous, swollen tender hot skin on the left lower extremity) Results/Procedures: Labs Laboratory Tests 09/25/19 16:54: Glucometer 188H 09/25/19 21:27: Glucometer 184H 09/26/19 05:21: Glucometer 239H 09/26/19 05:25: White Blood Count 14.9H, Red Blood Count 3.93L, Hemoglobin 11.0L, Hematocrit 36L , Mean Corpuscular Volume 90, Mean Corpuscular Hemoglobin 28, Mean Corpuscular Hemoglobin Concent 31L, Red Cell Distribution Width 16.1H, Platelet Count 178, Mean Platelet Volume 10.3, Neutrophils (%) (Auto) 86H, Lymphocytes (%) (Auto) 8L , Monocytes (%) (Auto) 6, Eosinophils (%) (Auto) 0, Basophils (%) (Auto) 0, Neutrophils # (Auto) 12.8H, Lymphocytes # (Auto) 1.2, Monocytes # (Auto) 0.9, Eosinophils # (Auto) 0.0, Basophils # (Auto) 0.1, Sodium Level 139, Potassium Level 4.5, Chloride Level 107, Carbon Dioxide Level 20L, Anion Gap 12, Blood U mel Nitrogen 78H, Creatinine 2.76H, Estimat Glomerular Filtration Rate 22, BUN/Creatinine Ratio 28, Glucose Level 262H, Calcium Level 7.6L, Corrected Calcium 8.5, Phosphorus Level 2.8, Magnesium Level 1.6, Total Bilirubin 0.4, Aspartate Amino Transf (AST/SGOT) 16, Alanine Aminotransferase (ALT/SGPT) 18, Alkaline Phosphatase 100, Total Protein 5.5L, Albumin 2.9L 09/26/19 10:59: Glucometer 194H Microbiology 09/21/19 MRSA Screen - Final, Complete MRSA not isolated 09/20/19 Urine Culture - Final, Complete YEAST 09/20/19 Blood Culture - Final, Complete No growth A/P: Assessment/Dx: Acute influenza B, Acute respiratory failure, Lactic acidosis, Atrial fibrillation with RVR, Likely type II myocardial infarction, Acute On chronic kidney injury, CAD, PCI to the LAD with drug-eluting stent in October 2018, Acute diastolic congestive heart failure Plan: Acute influenza B, defer to the primary team. Multiorgan involvement. With severe systemic manifestations including type II myocardial infarction and lactic acidosis. Acute respiratory failure, Lactic acidosis, Atrial fibrillation with RVR, continue Eliquis. Likely type II myocardial infarction, serial troponin. Acute On chronic kidney injury, hold IV fluids. Hold Lasix since 09/24/2019 for worsening kidney function. CAD, PCI to the LAD with drug-eluting stent in October 2018, continue Plavix, atorvastatin. I will like to hold off with coronary angiography as long as I can. Since his borderline troponin could be type II myocardial infarction due to severe sepsis related to influenza. Also acute on chronic kidney injury may be significantly worsen with contrast given during coronary angiography. I discussed with the patient and family and they both concur. Acute diastolic congestive heart failure, hold IV fluids. Lasix 80 mg IV times one on 09/23/2019. Hold Lasix since due to worsening kidney function. Complicated patient with numerous active medical issues as above. Thank you for your consultation. Please call me if you have any questions. Mireille Clark MD, FACP, FACC, FSCAI, FHRS, CCDS Interventional Cardiology Cardiac Electrophysiology Vascular Medicine and Endovascular Interventions Focused Exam Time of Focused Exam: 18:10 Clinical Quality Measures AMI/AHF: ASA po Prior to arrival: Abner Nolasco MD Sep 26, 2019 15:55
[2019-09-26] MEDS: guaiFENesin/CODEINE (ROBITUSSIN AC) 10ML UDC PO PRN (16:25)
--- NOTE | 2019-09-26 16:26 | NUR ---
rochelle would not file away
[2019-09-26] MEDS: TAMSULOSIN 0.4 MG (FLOMAX) CAP PO SCH (17:33)
--- NOTE | 2019-09-26 20:15 | NUR ---
PT BLOOD SUGAR 72, DR CEE CONTACTED REGARDING SCHEDULED 40 UNITS OF LEVEMIR, DR ORDERED TO HOLD LEVEMIR THIS EVENING.
[2019-09-27] MEDS ORDERED: RT-ALBUTEROL/IPRATROPIUM 3 ML (DUONEB) VIAL INH PRN (00:05)
[2019-09-27] MEDS: guaiFENesin/CODEINE (ROBITUSSIN AC) 10ML UDC PO PRN (00:54)
[2019-09-27 04:00] VITALS: BP 132/85
--- NOTE | 2019-09-27 04:00 | NUR ---
PT REFUSED VITAL SIGNS TO BE TAKEN AT THIS TIME, WILL ATTEMPT LATER.
[2019-09-27 06:15] LABS: MAGNESIUM 1.6 MG/DL (1.6-2.4); PHOSPHORUS 2.6 MG/DL (2.3-4.7)
[2019-09-27] MEDS: inSUlin ASPART (NovoLOG) 1 UNIT/0.01 ML (CHARGE PER UNIT) SC SCH ×4 (07:25→19:19)
[2019-09-27] MEDS: CALCIUM CARBONATE 500 MG (TUMS) TAB.CHEW PO SCH ×3 (07:25→15:44)
[2019-09-27 08:00] VITALS: BP 173/83
[2019-09-27] MEDS: APIXABAN 2.5 MG (ELIQUIS) TABLET PO SCH ×2 (09:07→20:26)
[2019-09-27] MEDS: guaiFENesin (MUCINEX) 600 MG TAB PO SCH ×2 (09:07→20:26)
[2019-09-27] MEDS: CEFDINIR 300 MG (OMNICEF) CAP PO SCH ×2 (09:07→20:25)
[2019-09-27] MEDS: PANTOPRAZOLE 40 MG (PROTONIX) TAB PO SCH (09:07)
[2019-09-27] MEDS: CLOPIDOGREL 75 MG (PLAVIX) TABLET PO SCH (09:07)
[2019-09-27] MEDS: ASPIRIN E.C. 81 MG (ECOTRIN) TAB PO SCH (09:07)
[2019-09-27] MEDS: predniSONE 20 MG TAB PO SCH (09:08)
[2019-09-27] MEDS: meTOproloL SUCCINATE 50 MG (TOPROL XL) TAB PO SCH (09:14)
--- NOTE | 2019-09-27 11:31 | Occupational Ther Daily Note ---
OT Current Status-Daily Note Subjective Pt seen in recliner chair with personal fitness manager who is changing colostomy bag. Pt states he is "okay, and just here." Pt agreeable to OT tx to involve sponge bath and changing clothes. Mental Status/Objective Patient Orientation: Person, Place, Situation, Normal For Age Attachments: Colostomy/Ileostomy, IV, Telemetry ADL-Treatment Therapy Code Descriptions/Definitions Functional [place] Measure: 0=Not Assessed/NA 4=Minimal Assistance 1=Total Assistance 5=Supervision or Setup 2=Maximal Assistance 6=Modified [place] 3=Moderate Assistance 7=Complete IndependenceSCALE: Activities may be completed with or without assistive devices. 2-Toqiaofxcq-lvjfumg completes the activity by him/herself with no assistance from a helper. 5-Set-up or Clean-up Assistance-helper sets up or cleans up; patient completes activity. [place] assists only prior to or following the activity. 4-Supervision or Touching Assistance-helper provides verbal cues and/or touching/steadying and/or contact guard assistance as patient completes acti vity. Assistance may be provided throughout the activity or intermittently. 3-Partial/Moderate Assistance-helper does LESS THAN HALF the effort. [place] lifts, holds or supports trunk or limbs, but provides less than half the effort. 2-Substantial/Maximal Assistance-helper does MORE THAN HALF the effort. [place] lifts or holds trunk or limbs and provides more than half the effort. 7-Mlkdmzool-zpgofy does ALL the effort. Patient does none of the effort to complete the activity. Or, the assistance of 2 or more helpers is required for the patient to complete the activity. If activity was not attempted, code reason: 7-Patient Refused. 9-Not Applicable-not attempted and the patient did not perform the activity before the current illness, exacerbation or injury. 10-Not Attempted due to Environmental Limitations-(lack of equipment, weather restraints, etc.). 88-Not Attempted due to Medical Conditions or Safety Concerns. Eating (QC): 6 Shower/Bathe Self (QC): 3 (SBA in stance for bottom hygiene. Pt requires assist for feet/ calves and back. ) Upper Body Dressing (QC): 3 (min A) Lower Body Dressing (QC): 2 (max A- requires threading BLE, able to casing puller hips.) On/Off Footwear: 1 (TD) Toileting Hygiene (QC): 4 (SBA in stance. ) Toilet Transfer (QC): 7 Other Treatment Pt completes UB washing in chair, requires assist x2 to situate back into chair for success. Pt completes UB dress in chair, completes sit to stand (refuses gait belt) to FWW with mod A. Pt completes LB doffing/ wash in stance. Sits for LB donning. Pt left in recliner chair with call light in reach, all needs met. Education OT Patient Education: Correct positioning, Modified ADL techniques, Purpose of tx/functional activities, Safety issues, Transfer techniques Teaching Recipient: Patient Teaching Methods: Demonstration, Discussion Response to Teaching: Verbalize Understanding, Return Demonstration OT Metal Smelter Goals Metal Smelter Goals Time Frame: Sep 30, 2019 Eating (QC): 6 (met) Oral Hygiene (QC): 6 Toileting Hygiene (QC): 6 Shower/Bathe Self (QC): 6 Upper Body Dressing (QC): 6 Lower Body Dressing (QC): 6 On/Off Footwear (QC): 6 Additional Goals: 1-Demonstrate ADL Tasks, 2-Verbalize Understanding, 3- ImproveStrength/Jason 1=Demonstrate adherence to instructed precautions during ADL tasks. 2=Patient will verbalize/demonstrate understanding of assistive devices/modifications for ADL. 3=Patient will improve strength/tolerance for activity to enable patient to perform ADL's. OT Education/Plan Problem List/Assessment Assessment: Decreased Activ Tolerance, Dependent Transfers, Impaired Funct Balance, Impaired I ADL's, Impaired Self-Care Skills Discharge Recommendations Plan/Recommendations: Continue POC Therapy Discharge Recommendati: Scheduled Assistance, Homemaker Support Treatment Plan/Plan of Care Treatment,Training & Education: Yes Patient would benefit from OT for education, treatment and training to promote independence in ADL's, mobility, safety and/or upper extremity function for ADL's. Plan of Care: ADL Retraining, Functional Mobility, Group Exercise/Act as Ind, UE Funct Exercise/Act Treatment Duration: Sep 30, 2019 Frequency: 5 times per week Estimated Hrs Per Day: .25 hour per day Agreement: Yes Rehab Potential: Good Time/GCodes Start Time: 10:47 Stop Time: 11:14 Total Time Billed (hr/min): 27 Billed Treatment Time 1, ADL 2 (27) LETHA SUERO OTR Sep 27, 2019 11:31
[2019-09-27 12:00] VITALS: BP 130/86
[2019-09-27 12:12] LABS: MEAN PLATELET VOLUME 9.9 FL (7.4-10.4); RED CELL DISTRIBUTION WIDTH 16.4 % (10.0-14.5); WHITE BLOOD COUNT 14.7 10^3/uL (4.3-11.0)
[2019-09-27] MEDS ORDERED: CALCITRIOL 0.25 MCG (ROCALTROL) CAPSULE PO SCH (12:15)
--- NOTE | 2019-09-27 12:24 | Cardiology Progress Note ---
Cardiology SOAP Progress Note Subjective: Doesn't feel well. Still has shortness of breath. Objective: I&O/Vital Signs 09/27/19 09/27/19 09/27/19 09/27/19 00:38 04:00 07:00 08:00 Temp 36.5 36.1 Pulse 92 102 96 97 Resp 18 20 B/P (MAP) 132/85 (101) 173/83 (113) Pulse Ox 93 94 O2 Delivery Room Air Room Air 09/27/19 09/27/19 09/27/19 09:03 12:00 12:22 Temp 36.0 Pulse 102 114 Resp 22 B/P (MAP) 130/86 (101) Pulse Ox 94 O2 Delivery Room Air Room Air 09/27/19 00:00 Intake Total 1840 ml Output Total 850 ml Balance 990 ml Weight (Pounds): 194 Weight (Ounces): 2.0 Weight (Calculated Kilograms): 88.056129 Constitutional: appears stated age, AAO x 3, apparent distress, well-developed, well-nourished Respiratory: chest is bilaterally symmetric, rhonchi, wheezing, other (decreased air entry bilaterally) Cardiovascular: irregularly irregular, tachycardia, S1 and S2 Gastrointestional: soft, audible bowel sounds; No spleenomegaly Extremities: non-tender, normal inspection; No clubbing, No cyanosis; significant edema Neurologic/Psychiatric: no motor/sensory deficits, alert, normal mood/affect, oriented x 3, power is 5/5 both on sides Skin: normal color, warm/dry, other (erythematous, swollen tender hot skin on the left lower extremity) Results/Procedures: Labs Laboratory Tests 09/26/19 16:26: Glucometer 102 09/26/19 20:40: Glucometer 72 09/27/19 03:30: Phosphorus Level 2.6, Magnesium Level 1.6 09/27/19 05:31: Glucometer 174H 09/27/19 11:03: Glucometer 219H 09/27/19 12:05: Microbiology 09/21/19 MRSA Screen - Final, Complete MRSA not isolated 09/20/19 Urine Culture - Final, Complete YEAST 09/20/19 Blood Culture - Final, Complete No growth A/P: Assessment/Dx: Acute influenza B, Acute respiratory failure, Lactic acidosis, Atrial fibrillation with RVR, Likely type II myocardial infarction, Acute On chronic kidney injury, CAD, PCI to the LAD with drug-eluting stent in October 2018, Acute diastolic congestive heart failure Plan: Acute influenza B, defer to the primary team. Multiorgan involvement. With severe systemic manifestations including type II myocardial infarction and lactic acidosis. Acute respiratory failure, Lactic acidosis, Atrial fibrillation with RVR, continue Eliquis. Likely type II myocardial infarction, serial troponin. Acute On chronic kidney injury, hold IV fluids. Hold Lasix since 09/24/2019 for worsening kidney function. CAD, PCI to the LAD with drug-eluting stent in October 2018, continue Plavix, atorvastatin. I will like to hold off with coronary angiography as long as I can. Since his borderline troponin could be type II myocardial infarction due to severe sepsis related to influenza. Also acute on chronic kidney injury may be significantly worsen with contrast given during coronary angiography. I discussed with the patient and family and they both concur. Acute diastolic congestive heart failure, hold IV fluids. Lasix 80 mg IV times one on 09/23/2019. Hold Lasix since due to worsening kidney function. Complicated patient with numerous active medical issues as above. Thank you for your consultation. Please call me if you have any questions. Mireille Clark MD, FACP, FACC, FSCAI, FHRS, CCDS Interventional Cardiology Cardiac Electrophysiology Vascular Medicine and Endovascular Interventions Focused Exam Time of Focused Exam: 18:10 Clinical Quality Measures AMI/AHF: ASA po Prior to arrival: Abner Nolasco MD Sep 27, 2019 12:24
--- NOTE | 2019-09-27 12:25 | Progress Note ---
Subjective Subjective/Events-last exam Afebrile, no acute events. He is very frustrated by the swelling in his legs and states he is not concerned about his kidneys. He notes that they had talked about hospice, and he is fine with that "unless they make me wait 1.5 hours to go to the hospital when I want to go". Focused Exam Time of Focused Exam: 18:10 Objective Exam Last Set of Vital Signs Vital Signs Date Time Temp Pulse Resp B/P (MAP) Pulse Ox O2 Delivery O2 Flow Rate FiO2 09/27/19 12:00 36.0 102 22 130/86 (101) 94 Room Air 09/23/19 10:12 1.50 09/21/19 13:49 21 Capillary Refill : Less Than 3 Seconds I&O Intake and Output 09/27/19 00:00 Intake Total 3535 ml Output Total 1100 ml Balance 2435 ml Intake Oral 1460 ml IV Total 2075 ml Output Urine Total 1100 ml # Bowel Movements 2 General: Alert Lungs: Other (decreased air movement, rales) Heart: Regular Rate, No Murmurs Extremities: Other (2-3+ pitting edema) Neuro: Normal Speech Psych/Mental Status: Mental Status NL Results/Procedures Lab Laboratory Tests 09/26/19 16:26: Glucometer 102 09/26/19 20:40: Glucometer 72 09/27/19 03:30: Phosphorus Level 2.6, Magnesium Level 1.6 09/27/19 05:31: Glucometer 174H 09/27/19 11:03: Glucometer 219H 09/27/19 12:05: Microbiology 09/21/19 MRSA Screen - Final, Complete MRSA not isolated 09/20/19 Urine Culture - Final, Complete YEAST 09/20/19 Blood Culture - Final, Complete No growth Assessment/Plan Assessment/Plan (1) Influenza B Status: Acute Assessment & Plan: s/p treatment with oseltamavir (2) Acute renal failure superimposed on stage 3 chronic kidney disease Status: Acute Assessment & Plan: Improved with bicarb and holding diuretics, however patient is frustrated with leg swelling and also appears to be having increased difficulty breathing. Will likely need to resume diuretics soon, discussed with him that may worsen his kidneys and he states he would want to go on dialysis again if that were the case. (3) Elevated troponin I level Status: Acute Assessment & Plan: Possible type II [place] with critical illness, but does have known CAD, cannot tolerate contrast at this time unless emergent, appreciate Cardiology recommendations. (4) CAD (coronary artery disease) Status: Acute (5) Chronic atrial fibrillation Status: Chronic Assessment & Plan: On Eliquis for clot prevention, appreciate Cardiology recommendations (6) COPD with acute exacerbation Status: Acute Assessment & Plan: On prednisone, breathing treatments, cefdinir. Pulm consulted, appreciate recommendations. (7) CHF (congestive heart failure) Assessment & Plan: Respiratory status okay currently, but does have some increased work of breathing and marked peripheral edema, may need diuretics again soon, appreciate Cardiology recommendations. Qualifiers: Qualified Codes: I50.33 - Acute on chronic diastolic (congestive) heart failure (8) DVT prophylaxis Status: Acute Assessment & Plan: On Eliquis Clinical Quality Measures AMI/AHF: ASA po Prior to arrival: No DVT/VTE Risk/Contraindication: Risk Factor Score Per Nursin RFS Level Per Nursing on Admit: 4+=Very High KRISTA EPSTEIN MD Sep 27, 2019 12:25
[2019-09-27 12:35] LABS: ALBUMIN 3.1 GM/DL (3.2-4.5); BILIRUBIN,TOTAL 0.5 MG/DL (0.1-1.0); CALCIUM 7.7 MG/DL (8.5-10.1); CREATININE SERUM 3.01 MG/DL (0.60-1.30); MAGNESIUM 1.6 MG/DL (1.6-2.4); PHOSPHORUS 2.4 MG/DL (2.3-4.7); POTASSIUM 4.1 MMOL/L (3.6-5.0); TOTAL PROTEIN 5.4 GM/DL (6.4-8.2)
--- NOTE | 2019-09-27 12:50 | NUR ---
PALLIATIVE CARE RN spoke with patient's daughter on the phone regarding the visit with Royer Mathis that was on Friday last. She was not super happy with the RNs knowledge and her interaction method. She also reported that she knew her father is hard to get along with, as he has his idea of how things should be. He verbalizes that he does NOT want to be told that he cannot go to the hospital if he needs it! Patient is frustrated about the seemingly contradictory information given by doctor...example is he is told by one doctor to drink more water and the next he is told not to drink so much water...he is frustrated. I do not really think that he understands the gravity of his medical predicament. He is willing to try hospice, with the caveat that he isn't going to be told what he can and cannot do. He is willing to back to [facility] but is questioning who is in charge now and who the therapists are. Will see what the [facility] says and then call daughterRadha again. She was to call and speak to Radha.
--- NOTE | 2019-09-27 13:24 | Physical Therapy Daily Note ---
PT Daily Note-Current Subjective Patient states he is going to the [place] today. RN is unable to confirm this. Agrees to PT. Mental Status Patient Orientation: Normal For Age Transfers SCALE: Activities may be completed with or without assistive devices. 7-Vnfexlemjw-rvlbqld completes the activity by him/herself with no assistance from a helper. 5-Set-up or Clean-up Assistance-helper sets up or cleans up; patient completes activity. [place] assists only prior to or following the activity. 4-Supervision or Touching Assistance-helper provides verbal cues and/or touching/steadying and/or contact guard assistance as patient completes activity. Assistance may be provided throughout the activity or intermittently. 3-Partial/Moderate Assistance-helper does LESS THAN HALF the effort. [place] lifts, holds or supports trunk or limbs, but provides less than half the effort. 2-Substantial/Maximal Assistance-helper does MORE THAN HALF the effort. [place] lifts or holds trunk or limbs and provides more than half the effort. 2-Jecufglzs-afdqvl does ALL the effort. Patient does none of the effort to complete the activity. Or, the assistance of 2 or more helpers is required for the patient to complete the activity. If activity was not attempted, code reason: 7-Patient Refused. 9-Not Applicable-not attempted and the patient did not perform the activity before the current illness, exacerbation or injury. 10-Not Attempted due to Environmental Limitations-(lack of equipment, weather restraints, etc.). 88-Not Attempted due to Medical Conditions or Safety Concerns. Sit to Stand (QC): 3 Gait Training Does the Patient Walk?: Yes Distance: 100' Walk 10 feet (QC): 5 Walk 50 ft with 2 Turns(QC): 5 Gait Assistive Device: FWW trunk flexed posture/functional gait sequence Assessment Patient tolerated treatment and is up in recliner with needs met. Patient continues to decline gait belt use for safety. PT Manager Food Beverage Goals Senior Living Goals PT Senior Living Goals Time Frame: Sep 30, 2019 Sit to Lying (QC): 6 Lying-Sitting on Side/Bed(QC): 6 Sit to Stand (QC): 6 Walk 50ft with 2 Turns (QC): 6 Walk 150 ft (QC): 6 PT Plan Treatment/Plan Treatment Plan: Continue Plan of Care Treatment Plan: Bed Mobility, Education, Functional Activity Jason, Functional Strength, Gait, Safety, Therapeutic Exercise, Transfers Treatment Duration: Sep 30, 2019 Frequency: 6 times per week Estimated Hrs Per Day: .25 hour per day Patient and/or Family Agrees t: Yes Time/GCodes Time In: 1300 Time Out: 1310 Total Billed Treatment Time: 10 Total Billed Treatment 1 visit FA 10 min SOLA TRACY PT Sep 27, 2019 13:23
--- NOTE | 2019-09-27 14:25 | NUR ---
Pastoral care visit.
--- NOTE | 2019-09-27 14:27 | NUR ---
Palliative Care RN made f/u call to daughter after conversation. She is not surprised that he would like to return to [facility] for skilled. She asked about something for anxiety at night. I have asked Dr Mcbride.
--- NOTE | 2019-09-27 15:39 | Diagnostic Imaging Report ---
INDICATION: Hemoptysis. EXAMINATION: Portable chest at 3:26 PM. FINDINGS: There is some atelectasis at the right lung base. The left lung is clear. The heart size and pulmonary vascularity are normal. There may be a small right pleural effusion. IMPRESSION: Right basilar atelectasis and effusion. No appreciable change compared to 09/23/2019. Dictated by: Dictated on workstation # [id number]
[2019-09-27] MEDS: NYSTATIN ORAL SUSP 5 ML UDC PO SCH (15:44)
--- NOTE | 2019-09-27 16:00 | NUR ---
PT. HAD MOD. NOSEBLEED. DR. TO NOTIFIED AND STATED TO CONT. ELIQUIS. COUGHED UP MOD. AMT. BLOODY DRAINAGE. DR. ADAMS NOTIFIED OF COUGHING UP BLOOD. NEW ORDER'S NOTED. CHEST X-RAY DONE.
--- NOTE | 2019-09-27 16:01 | Pulmonary Progress Note ---
Subjective Time Seen by a Provider: 15:55 Subjective/Events-last exam PT is doing well from pulmonary standpoint. Sepsis Event Evaluation Height, Weight, BMI Height: 5'7.00" Weight: 194lbs. 2.0oz. 88.491994bc; 34.07 BMI Method:Stated Focused Exam Time of Focused Exam: 18:10 Exam Exam Vital Signs Date Time Temp Pulse Resp B/P (MAP) Pulse Ox O2 Delivery O2 Flow Rate FiO2 09/27/19 12:22 114 09/27/19 12:00 36.0 102 22 130/86 (101) 94 Room Air 09/27/19 09:03 Room Air 09/27/19 08:00 36.1 97 20 173/83 (113) 94 Room Air 09/27/19 07:00 96 09/27/19 04:00 36.5 102 18 132/85 (101) 93 Room Air 09/27/19 00:38 92 09/26/19 23:33 36.2 91 20 132/78 (96) 93 Room Air 09/26/19 20:40 Room Air 09/26/19 20:31 36.4 89 22 172/90 (117) 97 Room Air 09/26/19 19:00 115 09/26/19 16:01 35.8 90 22 139/95 (110) 95 Room Air I & O 09/27/19 07:00 Intake Total 2440 ml Output Total 1150 ml Balance 1290 ml Height & Weight Height: 5'7.00" Weight: 194lbs. 2.0oz. 88.004594fs; 34.07 BMI Method:Stated General Appearance: No Apparent Distress, WD/WN, Chronically ill HEENT: PERRL/EOMI, Normal ENT Inspection, Pharynx Normal, Moist Mucous Membranes Neck: Full Range of Motion, Normal Inspection, Non Tender Respiratory: No Accessory Muscle Use, No Respiratory Distress, Crackles, Decreased Breath Sounds Cardiovascular: Irregularly Irregular Capillary Refill: Less Than 3 Seconds Peripheral Pulses: 2+ Radial Pulses (R), 2+ Radial Pulses (L) Extremity: Pedal Edema Neurologic/Psychiatric: Alert, Oriented x3, No Motor/Sensory Deficits, Normal Mood/Affect Skin: Normal Color, Warm/Dry Lymphatic: No Adenopathy Results Lab Laboratory Tests 09/26/19 05:25 09/27/19 12:05 Assessment/Plan Assessment/Plan Acute influenza B -s/p Tamiflu -Monitor Acute bronchitis - Prednisone - d/c -Robitussin with codeine -Pt is not requiring oxygen -CXR - reviewed and appears stable Sepsis Flagyl and Omnicef metabolic lactic acidosis - improving -Monitor -IVF -- Bicarb gtt - d/c Anemia -Monitor Afib -Cardiology following CKD stage IV- hx of needing HD - Weakness/debility -PT/OT CAD s/p cath with stent placement 11/10 Acute diastolic CHF -Monitor close diastolic heart dysfunction Pt is doing well from pulmonary standpoint. I am going to sign off please call with any questions. LORNA VERA DO Sep 27, 2019 16:01
[2019-09-27 16:18] VITALS: BP 150/88
[2019-09-27] MEDS ORDERED: guaiFENesin/CODEINE (ROBITUSSIN AC) 10ML UDC PO PRN (17:15)
[2019-09-27] MEDS: TAMSULOSIN 0.4 MG (FLOMAX) CAP PO SCH (17:24)
--- NOTE | 2019-09-27 18:00 | NUR ---
NO ACTIVE BLEEDING AT THIS TIME.
--- NOTE | 2019-09-27 19:19 | NUR ---
BLOOD SUGAR PRIOR TO EATING 84. PT. ATE LESS THAN 1/2 OF SUPPER. NOVOLOG INSULIN HELD PER PT REQUEST.
[2019-09-27 20:27] VITALS: BP 140/86
[2019-09-27] MEDS ORDERED: LORazepam 0.5 MG (ATIVAN) TABLET PO SCH (21:00)
[2019-09-28] MEDS: NYSTATIN ORAL SUSP 5 ML UDC PO SCH ×3 (00:10→12:00)
[2019-09-28 00:15] VITALS: BP 140/72
[2019-09-28 05:00] VITALS: BP 164/6
[2019-09-28 05:33] LABS: HEMOGLOBIN 11.2 G/DL (13.3-17.7); MEAN PLATELET VOLUME 10.1 FL (7.4-10.4); RED CELL DISTRIBUTION WIDTH 16.2 % (10.0-14.5); WHITE BLOOD COUNT 15.4 10^3/uL (4.3-11.0)
[2019-09-28 05:53] LABS: CALCIUM 8.1 MG/DL (8.5-10.1); CREATININE SERUM 2.74 MG/DL (0.60-1.30); MAGNESIUM 1.7 MG/DL (1.6-2.4); PHOSPHORUS 2.5 MG/DL (2.3-4.7)
[2019-09-28] MEDS: CALCIUM CARBONATE 500 MG (TUMS) TAB.CHEW PO SCH ×2 (06:24→13:09)
[2019-09-28] MEDS: inSUlin ASPART (NovoLOG) 1 UNIT/0.01 ML (CHARGE PER UNIT) SC SCH ×2 (06:24→13:09)
--- NOTE | 2019-09-28 06:36 | NUR ---
UPDATED GAULT OF THE FOLLOWING: -PT BATTLED FEELING SOB THROUGHOUT SHIFT. -PT CONTINUES TO REFUSE BREATHING TX D/T THRUSH IN MOUTH. THIS RN DID CONVINCE PT TO TAKE ONE TX THIS MORNING. PT STATES THAT IT HELPED SLIGHTLY. -PT HAD BLOODY NOSE X3 LAST NIGHT. PT OBSERVED PICKING AT NOSE. EACH EPISODE LASTED APPROX 1 MINUTE. -PT CONTINUES TO HAVE PINK FROTHY AND BLOOD TINGED SPUTUM. -PT C/O DISCOMFORT D/T EDEMA.
[2019-09-28 08:00] VITALS: BP 137/71
[2019-09-28] MEDS: CLOPIDOGREL 75 MG (PLAVIX) TABLET PO SCH (08:46)
[2019-09-28] MEDS: PANTOPRAZOLE 40 MG (PROTONIX) TAB PO SCH (08:46)
[2019-09-28] MEDS: APIXABAN 2.5 MG (ELIQUIS) TABLET PO SCH (08:47)
[2019-09-28] MEDS: guaiFENesin (MUCINEX) 600 MG TAB PO SCH (08:47)
[2019-09-28] MEDS: ASPIRIN E.C. 81 MG (ECOTRIN) TAB PO SCH (08:47)
[2019-09-28] MEDS: meTOproloL SUCCINATE 50 MG (TOPROL XL) TAB PO SCH (08:47)
--- NOTE | 2019-09-28 10:33 | NUR ---
DISCHARGE PLANNING: Patient is accepted for skilled admission to [facility] when appropriate for discharge. Spoke with Dr. Swenson, she is concerned that he will need dialysis and wants to get him set up with his [employer] in the near future. Patient did indicate to this RN that he would be wiling to do dialysis again if needed. He remains firm in his stance that no one is going to tell him what he can and cannot do. He almodovar not follow his fluid restriction and take his medications only when the whim strikes him. Hospice continues to be the best option for him given his heart and kidney disease severity, however he is not yet of the same thought. Will await confirmation of discharge and make arrangements with [facility] for transport.
--- NOTE | 2019-09-28 11:28 | Physical Therapy Daily Note ---
PT Daily Note-Current Subjective Patient agreeable to therapy. He was ready to get up and walk, patient stated he was tired of lying down. Mental Status Patient Orientation: Person, Time, Situation Transfers SCALE: Activities may be completed with or without assistive devices. 2-Eyqvnbfddg-jvtoatt completes the activity by him/herself with no assistance from a helper. 5-Set-up or Clean-up Assistance-helper sets up or cleans up; patient completes activity. [place] assists only prior to or following the activity. 4-Supervision or Touching Assistance-helper provides verbal cues and/or touching/steadying and/or contact guard assistance as patient completes a ctivity. Assistance may be provided throughout the activity or intermittently. 3-Partial/Moderate Assistance-helper does LESS THAN HALF the effort. [place] lifts, holds or supports trunk or limbs, but provides less than half the effort. 2-Substantial/Maximal Assistance-helper does MORE THAN HALF the effort. [place] lifts or holds trunk or limbs and provides more than half the effort. 5-Mgkjdetpb-lvscel does ALL the effort. Patient does none of the effort to complete the activity. Or, the assistance of 2 or more helpers is required for the patient to complete the activity. If activity was not attempted, code reason: 7-Patient Refused. 9-Not Applicable-not attempted and the patient did not perform the activity before the current illness, exacerbation or injury. 10-Not Attempted due to Environmental Limitations-(lack of equipment, weather restraints, etc.). 88-Not Attempted due to Medical Conditions or Safety Concerns. Roll Left & Right (QC): 3 Lying to Sitting/Side of Bed(Q: 3 Sit to Stand (QC): 3 Gait Training Does the Patient Walk?: Yes Distance: 50' Walk 10 feet (QC): 4 Walk 50 ft with 2 Turns(QC): 4 Gait Assistive Device: FWW Exercises Seated Therapy Exercises: Ankle pumps, Long arc quads Assessment Patient became SOB during gait and ceased walking due to increased leg pain (patient did not rate pain). PT Telemarketing Fundraiser Goals Telemarketing Fundraiser Goals PT Telemarketing Fundraiser Goals Time Frame: Sep 30, 2019 Sit to Lying (QC): 6 Lying-Sitting on Side/Bed(QC): 6 Sit to Stand (QC): 6 Walk 50ft with 2 Turns (QC): 6 Walk 150 ft (QC): 6 PT Plan Problem List Problem List: Activity Tolerance, Functional Strength Treatment/Plan Treatment Plan: Continue Plan of Care Treatment Plan: Bed Mobility, Education, Functional Activity Jason, Functional Strength, Gait, Safety, Therapeutic Exercise, Transfers Treatment Duration: Sep 30, 2019 Frequency: 6 times per week Estimated Hrs Per Day: .25 hour per day Patient and/or Family Agrees t: Yes Time/GCodes Time In: 1032 Time Out: 1047 Total Billed Treatment Time: 15 Total Billed Treatment 1 visit FA 15 min SOLA TRACY PT Sep 28, 2019 11:28
[2019-09-28] MEDS ORDERED: METO-370 PO (11:51)
[2019-09-28] MEDS ORDERED: Guaifenesin/Codeine PO (11:51)
[2019-09-28] MEDS ORDERED: FURO-125 PO (11:51)
[2019-09-28] MEDS ORDERED: ASPI-983 PO (11:51)
[2019-09-28] MEDS ORDERED: GUAI600T43 PO (11:51)
[2019-09-28 12:00] VITALS: BP 135/93
--- NOTE | 2019-09-28 12:00 | Occupational Ther Daily Note ---
OT Current Status-Daily Note Subjective Pt seen in recliner chair, pt states no pain but very fatigued and "needs rest", states he has not been able to sleep for more than 4 hours at a time since admit. Pt denies out of chair activities, states he has already completes UE exercises; pt agreeable to toothbrushing in recliner chair. Mental Status/Objective Patient Orientation: Person, Place, Situation, Normal For Age ADL-Treatment Therapy Code Descriptions/Definitions Functional [place] Measure: 0=Not Assessed/NA 4=Minimal Assistance 1=Total Assistance 5=Supervision or Setup 2=Maximal Assistance 6=Modified [place] 3=Moderate Assistance 7=Complete IndependenceSCALE: Activities may be completed with or without assistive devices. 9-Lyqezxaykq-gmipryr completes the activity by him/herself with no assistance from a helper. 5-Set-up or Clean-up Assistance-helper sets up or cleans up; patient completes activity. [place] assists only prior to or following the activity. 4-Supervision or Touching Assistance-helper provides verbal cues and/or touching/steadying and/or contact guard assistance as patient completes activity. Assistance may be provided throughout the activity or intermittently. 3-Partial/Moderate Assistance-helper does LESS THAN HALF the effort. [place] lifts, holds or supports trunk or limbs, but provides less than half the effort. 2-Substantial/Maximal Assistance-helper does MORE THAN HALF the effort. [place] lifts or holds trunk or limbs and provides more than half the effort. 1-Piwcwaogv-zrpzuw does ALL the effort. Patient does none of the effort to complete the activity. Or, the assistance of 2 or more helpers is required for the patient to complete the activity. If activity was not attempted, code reason: 7-Patient Refused. 9-Not Applicable-not attempted and the patient did not perform the activity before the current illness, exacerbation or injury. 10-Not Attempted due to Environmental Limitations-(lack of equipment, weather restraints, etc.). 88-Not Attempted due to Medical Conditions or Safety Concerns. Eating (QC): 6 Oral Hygiene (QC): 6 Other Treatment Pt completes tooth brushing in recliner chair with items given to pt. Pt completes with thoroughness and completion. Pt states he is d[facility]c'ing to [facility], acknowledges need due to weakness. Pt educated on continuation of UE exercises; legs propped up with 2 pillows for edema management. Pt states no more needs, left in recliner chair with call light in reach, all needs met. Education OT Patient Education: Correct positioning, Exercise program, Home exercise program, Modified ADL techniques, Progress toward Goal/Update tx plan Teaching Recipient: Patient Teaching Methods: Demonstration, Discussion Response to Teaching: Verbalize Understanding, Return Demonstration OT Senior Living Goals Senior Living Goals Time Frame: Sep 30, 2019 Eating (QC): 6 (met) Oral Hygiene (QC): 6 (met) Toileting Hygiene (QC): 6 Shower/Bathe Self (QC): 6 Upper Body Dressing (QC): 6 Lower Body Dressing (QC): 6 On/Off Footwear (QC): 6 Additional Goals: 1-Demonstrate ADL Tasks, 2-Verbalize Understanding, 3- ImproveStrength/Jason 1=Demonstrate adherence to instructed precautions during ADL tasks. 2=Patient will verbalize/demonstrate understanding of assistive devices/modifications for ADL. 3=Patient will improve strength/tolerance for activity to enable patient to perform ADL's. OT Education/Plan Problem List/Assessment Assessment: Decreased Activ Tolerance, Impaired Funct Balance, Impaired I ADL's, Impaired Self-Care Skills Discharge Recommendations Plan/Recommendations: Continue POC Therapy Discharge Recommendati: 24 Hour Supervision Treatment Plan/Plan of Care Treatment,Training & Education: Yes Patient would benefit from OT for education, treatment and training to promote independence in ADL's, mobility, safety and/or upper extremity function for ADL's. Plan of Care: ADL Retraining, Functional Mobility, Group Exercise/Act as Ind, UE Funct Exercise/Act Treatment Duration: Sep 30, 2019 Frequency: 5 times per week Estimated Hrs Per Day: .25 hour per day Agreement: Yes Rehab Potential: Good Time/GCodes Start Time: 11:30 Stop Time: 11:43 Total Time Billed (hr/min): 13 Billed Treatment Time 1, ADL (13) LETHA SUERO OTR Sep 28, 2019 12:00
--- NOTE | 2019-09-28 12:08 | Discharge Summary ---
Discharge Summary Reconcile Patient Problems Problems Reviewed?: Yes Hospital Course Hospital Course Date of Admission: Sep 20, 2019 at 18:00 Admission Diagnosis : [facility]: [facility]28/19 Discharge Diagnosis: - Influenza B - PNA - A/C Renal Failure - CAD - Elevated Troponin - Chronic Atrial Fibrillation - COPD Exacerbation - Lower Extremity Hospital Course: Patient with multiple comorbidities and high risk conditions admitted for PNA and Influenza B. Patient also found to have COPD and CHF exacerbation complicated by A/C renal failure. Discussed about hospice was made during this admission and patient is not ready for hospice services. States that he is willing to go on Dialysis if that is what needs to be done in order to prolong his life. Cardiology was following patient and unable to cath patient due to renal function. Lasix was held and Cr improved to 2.6 during admission. He will be sent to ID with reduced dose of lasix and fluid restriction of 1200 cc daily. Patient has 4+ pitting edema and unhappy about swelling however he has not been following fluid restriction during admission. Labs and Pending Lab Test: Laboratory Tests 09/27/19 12:05: White Blood Count 14.7H, Red Blood Count 4.03L, Hemoglobin 11.0L, Hematocrit 37L , Mean Corpuscular Volume 93, Mean Corpuscular Hemoglobin 27, Mean Corpuscular Hemoglobin Concent 29L, Red Cell Distribution Width 16.4H, Platelet Count 202, Mean Platelet Volume 9.9, Sodium Level 142, Potassium Level 4.1, Chloride Level 109H, Carbon Dioxide Level 23, Anion Gap 10, Blood Urea Nitrogen 68H, Creatinine 3.01H, Estimat Glomerular Filtration Rate 20, BUN/Creatinine Ratio 23, Glucose Level 203H, Calcium Level 7.7L, Corrected Calcium 8.4L, Phosphorus Level 2.4, Magnesium Level 1.6, Total Bilirubin 0.5, Aspartate Amino Transf (AST/SGOT) 20, Alanine Aminotransferase (ALT/SGPT) 22, Alkaline Phosphatase 108, B-Type Natriuretic Peptide 239.8H, Total Protein 5.4L, Albumin 3.1L 09/27/19 16:12: Glucometer 84 09/27/19 20:05: Glucometer 198H 09/28/19 05:00: White Blood Count 15.4H, Red Blood Count 4.06L, Hemoglobin 11.2L, Hematocrit 38L , Mean Corpuscular Volume 94, Mean Corpuscular Hemoglobin 28, Mean Corpuscular Hemoglobin Concent 30L, Red Cell Distribution Width 16.2H, Platelet Count 206, Mean Platelet Volume 10.1, Sodium Level 142, Potassium Level 5.0, Chloride Level 110H, Carbon Dioxide Level 22, Anion Gap 10, Blood Urea Nitrogen 63H, Creatinine 2.74H, Estimat Glomerular Filtration Rate 22, BUN/Creatinine Ratio 23, Glucose L evel 180H, Calcium Level 8.1L, Phosphorus Level 2.5, Magnesium Level 1.7 Microbiology 09/21/19 MRSA Screen - Final, Complete MRSA not isolated 09/20/19 Urine Culture - Final, Complete YEAST 09/20/19 Blood Culture - Final, Complete No growth Home Meds Active Lasix (Furosemide) 20 Mg Tablet 20 Mg PO DAILY [Guaifenesin/Codeine] 10 ML Syrp 10 Ml PO Q6HR PRN 10 Days Mucinex (Guaifenesin) 600 Mg Tab.er.12h 600 Mg PO BID Aspirin EC (Aspirin) 81 Mg Tablet.dr 81 Mg PO DAILY Metoprolol Succinate 50 Mg Tab.er.24h 50 Mg PO DAILY Reported Augmentin 875-125 Tablet (Amoxicillin/Potassium Clav) 1 Each Tablet 1 Tab PO BID 10 Days 10 DAY SUPPLY FILLED 09-14-19 Metoprolol Succinate 100 Mg Tab.er.24h 100 Mg PO DAILY Humalog Kwikpen (Insulin Lispro) 100 Unit/1 Ml Insuln.pen 16 Unit SQ TIDAC Furosemide 40 Mg Tablet 40 Mg PO DAILY Trulicity (Dulaglutide) 0.75 Mg/0.5 Ml Pen.injctr 0.75 Mg SQ MO Nitroglycerin 0.4 Mg Tab.subl 0.4 Mg SL UD PRN Plavix (Clopidogrel Bisulfate) 75 Mg Tablet 75 Mg PO DAILY Tums Smoothies (Calcium Carbonate) 300 Mg Tab.chew 600 Mg PO TID Eliquis (Apixaban) 2.5 Mg Tablet 2.5 Mg PO DAILY Atorvastatin Calcium 10 Mg Tablet 10 Mg PO HS Pantoprazole Sodium 40 Mg Tablet.dr 40 Mg PO DAILY Flomax (Tamsulosin HCl) 0.4 Mg Cap 0.4 Mg PO DAILY Tylenol Arthritis (Acetaminophen) 650 Mg Tablet.er 1,300 Mg PO DAILY PRN Levemir Flextouch (Insulin Detemir) 100 Unit/1 Ml Insuln.pen 30 Unit SQ BID Calcitriol 0.25 Mcg Capsule 0.25 Mcg PO MOWEFR Prednisone 5 Mg Tablet 5 Mg PO BID Follow Up Appt.: - Will need appt with Nephrology at [place] in the next 2 weeks Skilled NF Admit to: [facility] Certification (SNF) I certify that SNF services are required to be given on an inpatient basis becau se of the above named patient's need for [facility] care on a continuing basis for the conditions(s) for which he/she was receiving inpatient hospital services prior to his/her transfer to the SNF. Longterm Facility Order: Nursing Services, Sales Officer-Evaluate & Treat, Physical Therapy-Evaluate & Treat, Speech Language-Evaluate & Treat Oxygen Delivery Method: Room Air Discharge Diet: Low Sodium Diet, ADA Diet Daily Activity as Tolerated: Yes Resuscitation Status: Do Not Resuscitate New & Resume Previous Orders - Fluid restriction of 1200 daily - Daily weights reported to PCP Angelika Swenson Sep 28, 2019 11:58 Discharge Physical Exam General: Alert, Oriented X3 Lungs: Clear to Auscultation, Normal Air Movement Heart: Regular Rate, No Murmurs Abdomen: Normal Bowel Sounds, Soft Extremities: Other (4+ pitting edema) Skin: No Rashes, No Breakdown Neuro: Sensation Intact, Other (3/4 strength LE bilaterally, slow gait) ANGELIKA SWENSON MD Sep 28, 2019 12:06
[2019-09-28 14:15] VITALS: BP 135/93
--- NOTE | 2019-09-28 14:15 | NUR ---
JEANMARIE CABRERA demonstrates understanding of discharge instructions and accurately returns instructions upon questioning. Copy of Post-Discharge Instructions given to PT. JEANMARIE CABRERA is able to manage continuing needs after discharge. Patients belongings returned to PT. Patient discharged from [facility]- on 09/28/19 at 1415. JEANMARIE CABRERA left floor via W/C, accompanied by STAFF AND VIA CHRIS BEDOLLA.
--- NOTE | 2019-09-28 19:07 | Cardiology Progress Note ---
Cardiology SOAP Progress Note Subjective: some shortness of breath Objective: I&O/Vital Signs 09/28/19 09/28/19 09/28/19 09/28/19 08:00 12:00 12:08 12:44 Temp 36.6 36.6 Pulse 113 94 106 Resp 24 22 B/P (MAP) 137/71 (93) 135/93 (107) Pulse Ox 96 96 O2 Delivery Room Air Room Air Room Air 09/28/19 14:15 Temp 36.6 Pulse 106 Resp 22 B/P (MAP) 135/93 Pulse Ox 96 O2 Delivery Room Air O2 Flow Rate 1.50 09/28/19 00:00 Intake Total 1100 ml Output Total 1650 ml Balance -550 ml Weight (Pounds): 194 Weight (Ounces): 2.0 Weight (Calculated Kilograms): 88.318506 Constitutional: appears stated age, AAO x 3, apparent distress, well-developed, well-nourished Respiratory: chest is bilaterally symmetric, rhonchi, wheezing, other (decreased air entry bilaterally) Cardiovascular: irregularly irregular, tachycardia, S1 and S2 Gastrointestional: soft, audible bowel sounds; No spleenomegaly Extremities: non-tender, normal inspection; No clubbing, No cyanosis; signifi cant edema Neurologic/Psychiatric: no motor/sensory deficits, alert, normal mood/affect, oriented x 3, power is 5/5 both on sides Skin: normal color, warm/dry, other (erythematous, swollen tender hot skin on the left lower extremity) Results/Procedures: Labs Laboratory Tests 09/27/19 20:05: Glucometer 198H 09/28/19 05:00: White Blood Count 15.4H, Red Blood Count 4.06L, Hemoglobin 11.2L, Hematocrit 38L , Mean Corpuscular Volume 94, Mean Corpuscular Hemoglobin 28, Mean Corpuscular Hemoglobin Concent 30L, Red Cell Distribution Width 16.2H, Platelet Count 206, Mean Platelet Volume 10.1, Sodium Level 142, Potassium Level 5.0, Chloride Level 110H, Carbon Dioxide Level 22, Anion Gap 10, Blood Urea Nitrogen 63H, Creatinine 2.74H, Estimat Glomerular Filtration Rate 22, BUN/Creatinine Ratio 23, Glucose Level 180H, Calcium Level 8.1L, Phosphorus Level 2.5, Magnesium Level 1.7 Microbiology 09/21/19 MRSA Screen - Final, Complete MRSA not isolated 09/20/19 Urine Culture - Final, Complete YEAST 09/20/19 Blood Culture - Final, Complete No growth A/P: Assessment/Dx: Acute influenza B, Acute respiratory failure, Lactic acidosis, Atrial fibrillation with RVR, Likely type II myocardial infarction, Acute On chronic kidney injury, CAD, PCI to the LAD with drug-eluting stent in October 2018, Acute diastolic congestive heart failure Plan: Acute influenza B, defer to the primary team. Multiorgan involvement. With severe systemic manifestations including type II myocardial infarction and lactic acidosis. Acute respiratory failure, Lactic acidosis, Atrial fibrillation with RVR, continue Eliquis. Likely type II myocardial infarction, serial troponin. Acute On chronic kidney injury, hold IV fluids. Hold Lasix since 09/24/2019 for worsening kidney function. CAD, PCI to the LAD with drug-eluting stent in October 2018, continue Plavix, atorvastatin. I will like to hold off with coronary angiography as long as I can. Since his borderline troponin could be type II myocardial infarction due to severe sepsis related to influenza. Also acute on chronic kidney injury may be significantly worsen with contrast given during coronary angiography. I discussed with the patient and family and they both concur. Acute diastolic congestive heart failure, hold IV fluids. Lasix 80 mg IV times one on 09/23/2019. Hold Lasix since due to worsening kidney function. Complicated patient with numerous active medical issues as above. Thank you for your consultation. Please call me if you have any questions. Mireille Clark MD, FACP, FACC, FSCAI, FHRS, CCDS Interventional Cardiology Cardiac Electrophysiology Vascular Medicine and Endovascular Interventions Focused Exam Time of Focused Exam: 18:10 Clinical Quality Measures AMI/AHF: ASA po Prior to arrival: Abner Nolasco MD Sep 28, 2019 19:07
== END 2019-09-28 14:15 | DRG 871 ==
LOC: EDUNIT# 14:45 → ER 14:47 → CSD 18:00 → 4TH 09-25 16:09
PROVIDERS: ADMIT Internal Medicine; ATTEND Family Medicine
DX: A41.89 Other specified sepsis (principal); B97.89 Other viral agents as the cause of diseases classified elsewhere; J10.1 Influenza due to other identified influenza virus with other respiratory manifestations; R65.20 Severe sepsis without septic shock; J96.01 Acute respiratory failure with hypoxia; I21.A1 Myocardial infarction type 2; I13.0 Hypertensive heart and chronic kidney disease with heart failure and stage 1 through stage 4 chronic kidney disease, or unspecified chronic kidney disease; I50.31 Acute diastolic (congestive) heart failure; Z66 Do not resuscitate; N18.4 Chronic kidney disease, stage 4 (severe); J44.1 Chronic obstructive pulmonary disease with (acute) exacerbation; N17.9 Acute kidney failure, unspecified; E87.2 Acidosis; L03.116 Cellulitis of left lower limb; I48.20 Chronic atrial fibrillation, unspecified; I48.92 Unspecified atrial flutter; E86.9 Volume depletion, unspecified; E11.9 Type 2 diabetes mellitus without complications; I25.10 Atherosclerotic heart disease of native coronary artery without angina pectoris; M06.9 Rheumatoid arthritis, unspecified; N40.0 Benign prostatic hyperplasia without lower urinary tract symptoms; K21.9 Gastro-esophageal reflux disease without esophagitis; H35.30 Unspecified macular degeneration; L40.9 Psoriasis, unspecified; F32.9 Major depressive disorder, single episode, unspecified; E87.5 Hyperkalemia; Z93.3 Colostomy status; Z87.891 Personal history of nicotine dependence; Z79.01 Long term (current) use of anticoagulants; Z95.5 Presence of coronary angioplasty implant and graft
CPT/HCPCS: 36415; 71045; 76937; 80048; 80053; 80202; 81000; 82962; 83605; 83735; 83880; 84100; 84484; 85007; 85025; 85027; 85610; 85730; 86141; 87040; 87081; 87088; 87804; 93005; 93306; 94640; 94760; 96365; 96375

== ENCOUNTER → 2019-11-12 | Outpatient (CLI) | payer MEDICARE ==
[~2019-11-12] MED LIST changes: -CETI10TA20 PO; +CETI10TA21 PO; +FURO-125 PO; -GLIM4TAB PO; +GLIM4TAB5 PO; +GUAI600T43 PO; +Guaifenesin/Codeine PO; +INSU100I23 SQ; +INSU100V SQ; -MELA3TAB PO; +MELA3TAB65 PO; -METO-370 PO; -METO-387 PO; -METO-395 PO; +METO50TA7 PO; +MTP100TCR PO; +MTP25TSR PO; -TAMS0.4C98 PO; +TMSL.4C PO; -TRAZ-222 PO; +TRZ50T PO
[2019-11-12 08:27] LABS: HEMOGLOBIN 12.3 G/DL (13.3-17.7); MEAN PLATELET VOLUME 10.1 FL (7.4-10.4); RED CELL DISTRIBUTION WIDTH 16.4 % (10.0-14.5); WHITE BLOOD COUNT 14.1 10^3/uL (4.3-11.0)
--- NOTE | 2019-11-12 09:13 | Diagnostic Imaging Report ---
PROCEDURE: US left lower extremity venous. TECHNIQUE: Multiple real-time grayscale images were obtained over the left lower extremity in various projections. Additional duplex Doppler and color Doppler images were also obtained. INDICATION: Peripheral vascular disease The veins of the left leg have good color filling and compressibility. There is phasic flow and normal response to augmentation. IMPRESSION: Negative venous Doppler left leg Dictated by: Dictated on workstation # [id number]
== END ==
LOC: RAD 08:10
PROVIDERS: ATTEND Internal Medicine
DX: I73.9 Peripheral vascular disease, unspecified (principal); R06.00 Dyspnea, unspecified
CPT/HCPCS: 36415; 85027

== ENCOUNTER → 2019-11-18 | Outpatient (CLI) | payer MEDICARE ==
--- NOTE | 2019-11-18 16:11 | Diagnostic Imaging Report ---
HISTORY: Palpable lumps in the left lower extremity with pain. No known trauma. TECHNIQUE: Color Doppler and grayscale ultrasound was performed in the soft tissues of the left lower extremity. COMPARISON: None FINDINGS: Multiple hypoechoic lesions are seen in the left lower extremity corresponding with the palpable abnormalities. 1. There is a 2 x 2 x 3 mm hypoechoic lesion in the subcutaneous fat just underlying the skin with an echogenic rim at the back of the thigh. No vascularity is seen. This could represent a small subcutaneous cyst or inflammatory reaction. 2. Lateral to the knee there is a hypoechoic lesion measuring 1.3 x 0.6 x 1.5 cm which demonstrates internal vascularity. This has somewhat irregular borders with posterior acoustic enhancement. There is mild increased echogenicity of the surrounding tissue. This may represent focal phlegmon, possibly a reactive lymph node, however other etiologies are not excluded. 3. In the lower leg there is a 0.8 x 0.4 x 1.1 cm lesion which demonstrates a peripheral hypoechoic crescent with central hyperechogenicity, with the appearance of a lymph node. 4. At the lateral posterior lower leg there is marked focal subcutaneous edema with hyperemia. 5. At the posterior lower leg there is a 0.9 x 0.5 x 0.6 cm lesion with a peripheral hypoechoic rim and central hyperechogenicity, may represent a lymph node. IMPRESSION: 1. Multiple palpable abnormalities in the soft tissues of the left lower extremity are described above. Some of these appear to represent lymph nodes, however there is a 1.5 cm lesion lateral to the knee with internal vascularity, which could represent a reactive lymph node or focal inflammatory reaction, however, MRI with and without contrast could be considered for further evaluation. 2. 3 mm hypoechoic focus in the subcutaneous fat of the posterior left thigh may represent a small cyst. 3. Marked focal edema and vascularity at the lateral posterior lower leg, concerning for focal infection/inflammation. Dictated by: Dictated on workstation # [id number]
== END ==
LOC: RAD 11:42
PROVIDERS: ATTEND Nurse Practitioner Community Health
DX: R22.42 Localized swelling, mass and lump, left lower limb (principal)
CPT/HCPCS: 76881

== ENCOUNTER 2019-12-03 04:23 | Emergency (ER) | payer MEDICARE ==
[~2019-12-03] VITALS: Ht 170 cm; Wt 85.0 kg
[2019-12-03 04:41] LABS: BASOPHILS # (AUTO) 0.1 10^3/uL (0.0-0.1); BASOPHILS % (AUTO) 1 % (0-10); EOSINOPHILS % (AUTO) 0 % (0-10); HEMATOCRIT 36 % (40-54); HEMOGLOBIN 11.3 G/DL (13.3-17.7); LYMPHOCYTES # (AUTO) 2.2 X 10^3 (1.0-4.0); LYMPHOCYTES % (AUTO) 16 % (12-44); MEAN CORPUSCULAR HEMOGLOBIN 29 PG (25-34); MEAN CORPUSCULAR HGB CONC 32 G/DL (32-36); MEAN CORPUSCULAR VOLUME 92 FL (80-99); MEAN PLATELET VOLUME 9.8 FL (7.4-10.4); MONOCYTES # (AUTO) 1.1 X 10^3 (0.0-1.0); MONOCYTES % (AUTO) 8 % (0-12); NEUTROPHILS # (AUTO) 10.9 X 10^3 (1.8-7.8); NEUTROPHILS % (AUTO) 76 % (42-75); PLATELET COUNT 255 10^3/uL (130-400); RED CELL DISTRIBUTION WIDTH 17.3 % (10.0-14.5); WHITE BLOOD COUNT 14.4 10^3/uL (4.3-11.0)
[2019-12-03 04:54] LABS: PROTHROMBIN TIME PATIENT 13.2 SEC (12.2-14.7)
[2019-12-03 04:58] LABS: BAND NEUTROPHILS 1 %; EOSINOPHILS % (MANUAL) 1 %; HYPOCHROMASIA SLIGHT; LYMPHOCYTES % (MANUAL) 17 %; MONOCYTES % (MANUAL) 9 %; NEUTROPHILS % (MANUAL) 72 %
[2019-12-03 05:01] LABS: ALBUMIN 3.6 GM/DL (3.2-4.5); BILIRUBIN,TOTAL 0.7 MG/DL (0.1-1.0); CALCIUM 8.7 MG/DL (8.5-10.1); CREATININE SERUM 3.58 MG/DL (0.60-1.30); POTASSIUM 5.6 MMOL/L (3.6-5.0); TOTAL PROTEIN 6.8 GM/DL (6.4-8.2)
[2019-12-03] MEDS ORDERED: inSUlin (REGULAR) HUMAN 1 UNIT/0.01 ML (CHARGE PER UNIT) IV ONE (05:15)
[2019-12-03] MEDS ORDERED: CALCIUM GLUC. 10% 4.65 MEQ/10 ML VIAL ONE (05:25)
[2019-12-03] MEDS ORDERED: SOD POLYSTERENE 15 GM/60 ML (KAYEXALATE) UNIT DOSE ONE (05:26)
[2019-12-03] MEDS ORDERED: inSUlin (REGULAR) HUMAN 1 UNIT/0.01 ML (CHARGE PER UNIT) ONE (05:27)
[2019-12-03] MEDS ORDERED: CALCIUM GLUC. 10% 4.65 MEQ/10 ML VIAL IV ONE (05:30)
[2019-12-03] MEDS ORDERED: SOD POLYSTERENE 15 GM/60 ML (KAYEXALATE) UNIT DOSE PO ONE (05:30)
[2019-12-03 07:09] LABS: CALCIUM 8.9 MG/DL (8.5-10.1); CREATININE SERUM 3.38 MG/DL (0.60-1.30); POTASSIUM 5.1 MMOL/L (3.6-5.0)
[2019-12-03] MEDS ORDERED: CEFU500T63 PO (07:18)
--- NOTE | 2019-12-03 07:19 | ED EENT ---
History of Present Illness General Chief Complaint: Nasal Problems Stated Complaint: NOSE BLEED Nursing Triage Note: Pt to [facility] 3 via [facility] from [facility]. Staff stats pt has had a nose bleed for 4 hrs in right nostril and is on blood thinners. Pt has a nosebleed earlier this week that lasted 6 hrs. Guaze present in nostril on arrival, bleeding has stopped. Source: patient History of Present Illness Date Seen by Provider: Dec 03, 2019 Time Seen by Provider: 04:24 Initial Comments PT ARRIVES VIA EMS FROM [facility] C/O NOSEBLEED FOR THE LAST 4 HOURS--RIGHT NARE, BUT HAS HAD SOME BLOOD COMING FROM LEFT WELL--HAS STOPPED BLEEDING AT THIS TIME NO INJURY NO FEVER OR RECENT ILLNESS--NO URI/SINUS SYMPTOMS STATES HE WAS GETTING OUT OF BED TONIGHT, WHEN HIS NOSE STARTED BLEEDING PT IS ON ELIQUIS + ASPIRIN FOR CHRONIC ATRIAL FIBRILLATION PT STATES 3-4 DAYS AGO, HE HAD A NOSEBLEED-ALSO ON RIGHT SIDE--THAT LASTED 6 HOURS. DID NOT SEEK CARE AT THAT TIME PT HAS HAD INTERMITTENT NOSE BLEEDS IN THE PAST--STATES ONE TIME HE LOST SO MUCH BLOOD THAT HE HAD TO HAVE 3 UNITS OF BLOOD. [facility] HEMATOLOGY SUPERVISOR: DR. ONEAL Allergies and Home Medications Allergies Coded Allergies: No Known Drug Allergies (Verified , 09/20/19) Home Medications Acetaminophen 650 Mg Tablet.er, 1,300 MG PO DAILY PRN for PAIN-MILD, (Reported) Apixaban 2.5 Mg Tablet, 2.5 MG PO DAILY, (Reported) Aspirin 81 Mg Tablet.dr, 81 MG PO DAILY Prescribed by: ANGELIKA REED on 09/28/19 1151 Atorvastatin Calcium 10 Mg Tablet, 10 MG PO HS, (Reported) Calcitriol 0.25 Mcg Capsule, 0.25 MCG PO MoWeFr, (Reported) Calcium Carbonate 300 Mg Tab.chew, 600 MG PO TID, (Reported) Cefuroxime Axetil 500 Mg Tablet, 500 MG PO BID Prescribed by: ENRIQUETA ENLGAND on 12/03/19 0718 Clopidogrel Bisulfate 75 Mg Tablet, 75 MG PO DAILY, (Reported) Dulaglutide 0.75 Mg/0.5 Ml Pen.injctr, 0.75 MG SQ Mo, (Reported) Furosemide 20 Mg Tablet, 20 MG PO DAILY Prescribed by: ANGELIKA REED on 09/28/191150 Guaifenesin 600 Mg Tab.er.12h, 600 MG PO BID Prescribed by: ANGELIKA REED on 09/28/191150 Insulin Detemir 100 Unit/1 Ml Insuln.pen, 30 UNIT SQ BID, (Reported) Insulin Lispro 100 Unit/1 Ml Insuln.pen, 16 UNIT SQ TIDAC, (Reported) Metoprolol Succinate 50 Mg Tab.er.24h, 50 MG PO DAILY Prescribed by: ANGELIKA REED on 09/28/191150 Nitroglycerin 0.4 Mg Tab.subl, 0.4 MG SL UD PRN for CHEST PAIN, (Reported) Pantoprazole Sodium 40 Mg Tablet.dr, 40 MG PO DAILY, (Reported) Prednisone 5 Mg Tablet, 5 MG PO BID, (Reported) Tamsulosin HCl 0.4 Mg Cap, 0.4 MG PO DAILY, (Reported) [Guaifenesin/Codeine] 10 ML SYRP, 10 ML PO Q6HR PRN for COUGH Prescribed by: ANGELIKA REED on 09/28/191150 Patient Home Medication List Home Medication List Reviewed: Yes Review of Systems Review of Systems Constitutional: no symptoms reported; No chills, No diaphoresis, No dizziness, No fever, No malaise, No weakness Eyes: No Symptoms Reported Ears: No Symptoms Reported Nose: see HPI; denies congestion; epistaxis; denies pain Mouth: see HPI, other (BLOOD DRAINING FROM HIS NOSE, DOWN THE BACK OF HIS THROAT) Throat: see HPI Respiratory: no symptoms reported; No cough, No phlegm, No short of breath Cardiovascular: see HPI; No chest pain, No edema, No syncope Gastrointestinal: no symptoms reported; No nausea, No vomiting Skin: other (CHRONIC BRUISING) Neurological: No Symptoms Reported Hematologic/Lymphatic: See HPI, Easy Bleeding, Easy Bruising, Other (NO BLEEDING FROM ANY OTHER SITES, BESIDES HIS NOSE. ) Immunological/Allergic: no symptoms reported Past Tfotjlw-Aswvub-Ejjcry Hx Past Med/Social Hx: Reviewed and Corrections made Patient Social History Alcohol Use: Past History Number of Drinks Today: Alcohol Beverage of Choice: Beer, Wine Recreational Drug Use: No Smoking Status: Former Smoker Type Used: Cigars, Cigarettes Former Smoker, Quit: Feb 20, 1958 2nd Hand Smoke Exposure: No Recent Foreign Travel: No Contact w/Someone Who Travel: No Recent Infectious Disease Expo: No Recent Hopitalizations: Yes (AUGUST 2019) Immunizations Up To Date Tetanus Booster (TDap): Unknown PED Vaccines UTD: No Date of Pneumonia Vaccine: Jan 13, 2014 Date of Influenza Vaccine: Jul 23, 2019 Seasonal Allergies Seasonal Allergies: No Past Medical History Surgeries: Yes (LEFT ARM AV FISTULA) Bowel Surgery, Dialysis, Orthopedic, Vascular Surgery Respiratory: Yes Pneumonia Currently Using CPAP: No Currently Using BIPAP: No Cardiac: Yes (CHF) Atrial Fibrillation, Coronary Artery Disease, Hypertension Neurological: No Sexually Transmitted Disease: No HIV/AIDS: No Genitourinary: Yes (ESRD--QUIT DIALYSIS 02/2019, PER PT) Benign Prostatic Hyperpl, Kidney Infection, Renal Failure Gastrointestinal: Yes Abdominal Hernia, Gastroesophageal Reflux, Gastrointestinal Bleed, Diverticulosis Musculoskeletal: Yes (WHEELCHAIR BOUND TO CHRONIC LEG PAIN AND GENERALIZED WEAKNESS) Arthritis, Rheumatoid Arthritis, Chronic Back Pain Endocrine: Yes Diabetes, Insulin dep HEENT: Yes (NOSEBLEEDS) Cataract, Macular Degeneration Loss of Vision: Left Hearing Impairment: Hard of Hearing Cancer: No Psychosocial: Yes Depression Integumentary: Yes Psoriasis Blood Disorders: No Adverse Reaction/Blood Tranf: No Family Medical History Cardiovascular disease G8 BROTHER Diabetes mellitus 19 MOTHER G8 BROTHER FH: pancreatic cancer 19 FATHER Heart Disease, CAD Over 55 Years Old, Diabetes Physical Exam Vital Signs Vital Signs - First Documented 12/03/19 04:40 Temp 36.4 Pulse 109 Resp 20 B/P (MAP) 122/75 (91) Pulse Ox 96 O2 Delivery Room Air Height, Weight, BMI Height: 5'7.00" Weight: 194lbs. 2.0oz. 88.467961ht; 29.00 BMI Method:Stated General Appearance: WD/WN, other (SLIGHTLY DYSPNEIC ON ARRIVAL, BUT O2 SATS IN UPPER 90'S--THIS RESOLVED AFTER PT HAD BEEN IN ER FOR A FEW MINUTES. ) Eyes: bilateral eye PERRL, bilateral eye EOMI Nose: other (OLD DRIED BLOOD IN LEFT NARE; FRESH CLOTS/DRIED BLOOD IN RIGHT NARE--APPEARS TO BE MID SEPTUM SITE OF PREVIOUS BLEEDING. NO ACTIVE BLEEDING AT THIS TIME. NO OBVIOUS WOUNDS/ULCERATIONS, ETC. ) Mouth/Throat: other (DOES HAVE MODERATE AMOUNT OF FRESH CLOTTED BLOOD IN POSTERIOR PHARYNX--CLEARED WITH GARGLING AND SPITTING) Cardiovascular: tachycardia, irregularly irregular Respiratory: normal breath sounds Gastrointestinal: non tender, soft Neurologic/Psychiatric: tailercpa II-XII nml as tested, no motor/sensory deficits, alert, normal mood/affect, oriented x 3 Skin: normal color, warm/dry, ecchymosis (MULTIPLE OLD BRUISES OF VARIOUS AGES TO ARMS AND HANDS. ) Procedures/Interventions Nasal : Nasal Location: Right Clots Cleared from Nasal: Patient Blowing Inspection with: Otoscope Nasal Procedures: Rapid Rhino (5.5 CM) Progress NO BLEEDING DURING ER STAY POSTERIOR PHARYNX REMAINED CLEAR OF BLOOD. Progress/Results/Core Measures Results/Orders Lab Results Laboratory Tests Test 12/03/19 04:35 12/03/19 06:29 12/03/19 06:44 Range/Units White Blood Count 14.4 H 4.3-11.0 10^3/uL Red Blood Count 3.85 L 4.35-5.85 10^6/uL Hemoglobin 11.3 L 13.3-17.7 G/DL Hematocrit 36 L 40-54 % Mean Corpuscular Volume 92 80-99 FL Mean Corpuscular Hemoglobin 29 25-34 PG Mean Corpuscular Hemoglobin Concent 32 32-36 G/DL Red Cell Distribution Width 17.3 H 10.0-14.5 % Platelet Count 255 130-400 10^3/uL Mean Platelet Volume 9.8 7.4-10.4 FL Neutrophils (%) (Auto) 76 H 42-75 % Lymphocytes (%) (Auto) 16 12-44 % Monocytes (%) (Auto) 8 0-12 % Eosinophils (%) (Auto) 0 0-10 % Basophils (%) (Auto) 1 0-10 % Neutrophils # (Auto) 10.9 H 1.8-7.8 X 10^3 Lymphocytes # (Auto) 2.2 1.0-4.0 X 10^3 Monocytes # (Auto) 1.1 H 0.0-1.0 X 10^3 Eosinophils # (Auto) 0.0 0.0-0.3 10^3/uL Basophils # (Auto) 0.1 0.0-0.1 10^3/uL Neutrophils % (Manual) 72 % Lymphocytes % (Manual) 17 % Monocytes % (Manual) 9 % Eosinophils % (Manual) 1 % Band Neutrophils 1 % Hypochromasia SLIGHT Macrocytosis SLIGHT Prothrombin Time 13.2 12.2-14.7 SEC INR Comment 1.0 0.8-1.4 Activated Partial Thromboplast Time 26 24-35 SEC Sodium Level 135 134 L 135-145 MMOL/L Potassium Level 5.6 H 5.1 H 3.6-5.0 MMOL/L Chloride Level 99 99 98-107 MMOL/L Carbon Dioxide Level 20 L 19 L 21-32 MMOL/L Anion Gap 16 H 16 H 5-14 MMOL/L Blood Urea Nitrogen 74 H 76 H 7-18 MG/DL Creatinine 3.58 H 3.38 H 0.60-1.30 MG/DL Estimat Glomerular Filtration Rate 16 17 BUN/Creatinine Ratio 21 22 Glucose Level 402 *H 251 H 70-105 MG/DL Calcium Level 8.7 8.9 8.5-10.1 MG/DL Corrected Calcium 9.0 8.5-10.1 MG/DL Total Bilirubin 0.7 0.1-1.0 MG/DL Aspartate Amino Transf (AST/SGOT) 20 5-34 U/L Alanine Aminotransferase (ALT/SGPT) 13 0-55 U/L Alkaline Phosphatase 137 H 40-136 U/L Total Protein 6.8 6.4-8.2 GM/DL Albumin 3.6 3.2-4.5 GM/DL Glucometer 269 H 70-110 MG/DL My Orders Orders - ENRIQUETA ENGLAND DO Cbc With Automated Diff (12/03/19 04:30) Comprehensive Metabolic Panel (12/03/19 04:30) Protime With Inr (12/03/19 04:30) Partial Thromboplastin Time (12/03/19 04:30) Monitor-Rhythm Ecg Trace Only (12/03/19 04:30) Manual Differential (12/03/19 04:35) Insulin (Regular) Human (Humulin R (Per (12/03/19 05:15) Sodium Polystyrene Sulfonate (Kayexalate (12/03/19 05:30) Calcium Gluconate 10% Inj (Calcium Glu (12/03/19 05:30) Accucheck Stat ONCE (12/03/19 05:57) Insulin (Regular) Human (Humulin R (Per (12/03/19 05:27) Sodium Polystyrene Sulfonate (Kayexalate (12/03/19 05:26) Calcium Gluconate 10% Inj (Calcium Glu (12/03/19 05:25) Basic Metabolic Panel (12/03/19 06:36) Medications Given in ED Current Medications Medications Dose Ordered Sig/Adrienne Route Start Time Stop Time Status Last Admin Dose Admin Calcium Gluconate 4.65 meq ONCE ONCE IV 12/03/19 05:30 12/03/19 06:13 DC 12/03/19 05:35 4.65 MEQ Insulin Human Regular 15 unit ONCE ONCE IV 12/03/19 05:15 12/03/19 06:13 DC 12/03/19 05:36 15 UNIT Sodium Polystyrene Sulfonate 15 gm ONCE ONCE PO 12/03/19 05:30 12/03/19 06:13 DC 12/03/19 05:35 15 GM Vital Signs/I&O 12/03/19 04:40 Temp 36.4 Pulse 109 Resp 20 B/P (MAP) 122/75 (91) Pulse Ox 96 O2 Delivery Room Air Blood Pressure Mean: 91 FSBG Bedside Testing Finger Stick Blood Glucose: 269 Blood Glucose Action Taken: Dr England Progress Progress Note : Progress Note GIVEN INSULIN, CALCIUM GLUCONATE AND KAYEXELATE--GLUCOSE DOWN TO 25 AND POTASSIUM LEVEL DOWN PRIOR TO DISMISSAL PT SLEPT SOUNDLY FOR REMAINDER OF ER STAY VITALS REMAINED STABLE UNEVENTFUL ER STAY Departure Impression Primary Impression: Recurrent epistaxis Additional Impressions: Chronic anticoagulation Chronic atrial fibrillation ESRD-NO LONGER ON DIALYSIS Diabetes mellitus, insulin dependent (IDDM), uncontrolled Hyperkalemia Disposition: 03 XFER SNF Condition: Improved Departure-Patient Inst. Referrals: [facility] (PCP/Family) Primary Care Physician Patient Instructions: Nosebleeds (DC), Hyperkalemia (DC), Atrial Fibrillation (DC), Diabetes Type 2 (DC) Add. Discharge Instructions: LEAVE NASAL PACKING IN PLACE DO NOT RUB OR BLOW NOSE CONTINUE YOUR REGULAR MEDICATIONS PRESCRIBED FOLLOW UP WITH YOUR REGULAR DR FOR FURTHER CARE FOLLOW UP WITH DR. SUE NEXT WEEK FOR FURTHER CARE REGARDING NOSEBLEED All discharge instructions reviewed with patient and/or family. Voiced understanding. Scripts Cefuroxime Axetil (Cefuroxime) 500 Mg Tablet 500 MG PO BID, #20 TAB Prov: ENRIQUETA ENGLAND DO 12/03/19 ENRIQUETA ENGLAND DO Dec 03, 2019 07:19
[2019-12-03 08:40] VITALS: BP 108/83
--- OUTSIDE RECORDS SUMMARY | 2019-12-04 21:44 | XMS REPORT ---
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 Active 749535663 Problem Stage III chronic kidney disease N18.3 Active 278277275 Problem Atherosclerosis of [place] of both lower extremities, with unspecified presence of clinical manifestation I70.203 Active 360128502160489 Problem Erectile dysfunction due to diseases classified elsewhere N52.1 Active 885941232 Problem Gastroesophageal reflux disease without esophagitis K21.9 Active 161645135 Problem Type 2 diabetes mellitus wit h diabetic polyneuropathy, unspecified whether intermediate card tender insulin use E11.42 Active 45190857 Problem Morbid (severe) obesity due to excess calories E66 .01 Active 874578408 Problem Paroxysmal atrial fibrillation I48.0 Active 073710191 Problem Esophageal stricture K22.2 Active 98709039 Problem Nightmares F51.5 Active 455216016 Problem 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 Active 68237 2009 Problem Rheumatoid arthritis, involv ing unspecified site, unspecified rheumatoid factor presence M06.9 Active 92467043 ALLERGIES No Information ENCOUNTERS Encounter Location Date Diagnosis [place] [address] [address] Oct, [place] [address] [address] Oct, Rheumatoid arthritis, involving unspecif ied site, unspecified rheumatoid factor presence M06.9 [place] [address] [address] Oct, [place] [address] [address] Oct, Rheumatoid arthritis, involving unspecif ied site, unspecified rheumatoid factor presence M06.9 [place] [address] [address] Oct, Chronic pain G89.29 [place] [address] [address] Sep, [place] [address] [address] Sep, [facility] [address] [place] [id number] Sep, Type 2 diabetes mellitus with hyperglyce deep, without long-term current use of insulin E11.65 ; Lesion of skin of scalp L98.9 and Other bursal cyst, left elbow M71.322 [place] [address] [address] Sep, Via [facility] [address] [place] [id number] Sep, Anasarca R60.1 [facility] [address] [place] [id number] 14 Sep, 2019 Anasarca R60.1 ; Chronic kidney disease, unspecified CKD stage N18.9 ; Type 2 diabetes mellitus with hyperglycemia, without long-term current use of insulin E11.65 ; Rheumatoid arthritis, involving unspecified site, unspecified rheumatoid factor presence M06.9 and Paroxysmal atrial fibrillation I48.0 [place] [address] [address] Sep, [place] [address] [address] 10 Sep, 2019 Via [facility] [address] [place] [id number] Sep, Chronic kidney disease, stage 4 (severe) N18.4 ; Type 2 diabetes mellitus with diabetic chronic kidney disease E11.22 ; Coronary artery disease of [place] artery of [place] heart with stable angina pectoris I25.118 ; 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 ; Paroxysmal atrial fibrillation I48.0 ; Atherosclerosis of [place] artery of both lower extremities, with unspecified presence of clinical manifestation I70.203 ; 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 and Secondary hyperparathyroidism, not elsewhere classified E21.1 [place] [address] [address] Sep, [place] [address] [address] Sep, [place] [address] [place] [id number] Aug, [place] [address] [address] Aug, Type 2 diabetes mellitus with hyperglyce deep, without long-term current use of insulin E11.65 and Hyperglycemia R73.9 [place] [address] [place] [id number] Aug, Type 2 diabetes mellitus with hyperglyce deep, without long-term current use of insulin E11.65 and Hyperglycemia R73.9 [place] [address] [place] [id number] Aug, Cellulitis of left leg L03.116 and Multi ple skin nodules R22.9 [facility] [address] [place] [id number] [place] [address] Aug, [facility] [address] [place] [id number] [place] [address] Aug, [facility] [address] [place] [id number] [place] [address] Aug, [facility] [address] [place] [id number] [place] [address] Aug, [facility] [address] [address] Aug, [facility] [address] [address] Aug, [facility] [address] [address] Aug, [facility] [address] [place] [id number] [place] [address] Aug, [facility] [address] [place] [id number] [place] [address] Aug, [facility] [address] [place] [id number] [place] [address] Aug, Type 2 diabetes mellitus with hyperglyce deep, without long-term current use of insulin E11.65 [facility] [address] [place] [address] [place] [address] Jul, [facility] [address] [place] [address] [place] [address] Jul, [facility] [address] [place] [address] [place] [address] Jul, [facility] [address] [place] [address] [place] [address] Jul, Type 2 diabetes mellitus with hyperglyce deep, without long-term current use of insulin E11.65 ; Rheumatoid arthritis, involving unspecified site, unspecified rheumatoid factor presence M06.9 ; intermediate card tender current use of insulin Z79.4 and H/O ileostomy Z98.890 [place] [address] [place] [address] [place] [address] Jul, [facility] [address] [place] [id number] [place] [address] Jul, [place] [address] [place] [address] [place] [address] Jul, [place] [address] [address] Jul, [place] [address] [address] Jul, Type 2 diabetes mellitus with unspecifie d complications E11.8 ; nursing home (current) use of insulin Z79.4 ; Hyperglycemia R73.9 ; Impacted cerumen, bilateral H61.23 and MRSA (methicillin resistant staph aureus) culture positive Z22.322 [facility] [address] [facility] [id number] [place] [address] Jun, Abscess L02.91 [place] [address] [place] [id number] [place] [address] 07 Jun, 2019 Type 2 diabetes mellitus with diabetic c hronic kidney disease E11.22 ; Hyperglycemia R73.9 ; 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 and Pressure injury of skin of left heel, unspecified injury stage L89.629 [place] [address] [place] [id number] [place] [address] May, [place] [address] [place] [address] [place] [address] May, [place] [address] [address] May, [place] [address] [place] [id number] [place] [address] May, Non-healing wound of left heel S91.302A [place] [address] [address] May, [facility] [address] [address] Apr, [facility] [address] [address] Apr, Type 2 diabetes mellitus with hyperglyce deep, without long-term current use of insulin E11.65 ; Frail elderly R54 ; Chronic atrial fibrillation I48.2 ; Essential hypertension I10 and H/O ileostomy Z98.890 [facility] [address] [address] Apr, [facility] [address] [address] Apr, [facility] [address] [address] Apr, [facility] [address] [address] Apr, [facility] [address] [address] Apr, [facility] [address] [address] Apr, Via [facility] [address] [place] [id number] Apr, Type 2 diabetes mellitus with hyperglyce deep, without long-term current use of insulin E11.65 ; Pressure injury of left heel, stage 2 L89.622 and End stage renal disease N18.6 [facility] [address] [address] Apr, [facility] [address] [address] Mar, [facility] [address] [address] Mar, [facility] [address] [address] Mar, Type 2 diabetes mellitus with hyperglyce deep, without long-term current use of insulin E11.65 ; Chronic atrial fibrillation I48.2 ; Generalized edema R60.1 ; Poor vision H54.7 ; Requires assistance with activities of daily living (ADL) Z74.1 and Chronic kidney disease, unspecified CKD stage N18.9 [place] [address] [address] Mar, [place] [address] [address] Mar, [address] [address] Mar, Essential hypertension I10 and Type 2 di abetes mellitus with diabetic chronic kidney disease E11.22 [place] [address] [address] Mar, [place] [address] [address] Mar, [place] [address] [address] Mar, Chronic atrial fibrillation I48.2 [place] [address] [address] Mar, Type 2 diabetes mellitus with hyperglyce deep, without long-term current use of insulin E11.65 [place] [address] [address] Mar, [address] [address] Mar, Type 2 diabetes mellitus with diabetic c hronic kidney disease E11.22 ; Chronic kidney disease, stage 4 (severe) N18.4 and intermediate card tender current use of insulin Z79.4 [place] [address] [address] Mar, Chronic atrial fibrillation I48.2 ; Klarissa nary artery disease of [place] artery of [place] heart with stable angina pectoris I25.118 ; intermediate card tender current use of insulin Z79.4 ; Type 2 diabetes mellitus with unspecified complications E11.8 ; Benign prostatic hyperplasia with lower urinary tract symptoms N40.1 ; Gastroesophageal reflux disease without esophagitis K21.9 ; End stage renal disease N18.6 ; Hypersalivation K11.7 ; Essential hypertension I10 ; Primary insomnia F51.01 and Rheumatoid arthritis, involving unspecified site, unspecified rheumatoid factor presence M06.9 [facility] [address] [address] Feb, Via [facility] [address] [place] [id number] Feb, Localized edema R60.0 ; Hypersalivation K11.7 ; Mouth pain K13.79 ; Primary insomnia F51.01 and End stage renal disease N18.6 [facility] [address] [id number] Feb, Caries K02.9 [place] [address] [address] Feb, Chest pain due to myocardial ischemia, u nspecified ischemic chest pain type I25.9 [place] [address] [address] Feb, [place] [address] [address] Feb, Localized edema R60.0 [place] [address] [address] Feb, Via [facility] [address] [place] [id number] Feb, 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 ; End stage renal disease N18.6 ; Type 2 diabetes mellitus with diabetic chronic kidney disease, unspecified CKD stage, unspecified whether nursing home insulin use E11.22 ; Primary insomnia F51.01 ; History of Clostridioides difficile infection Z86.19 and Cough R05 [facility] [address] [id number] Feb, Dental examination Z01.20 [facility] [address] [address] Feb, [place] [id number] [address] Feb, [place] [address] [address] January, Primary insomnia F51.01 and History of G I bleed Z87.19 [place] [address] [address] January, Primary insomnia F51.01 and History of G I bleed Z87.19 [facility] [employer] [address] [place] [id number] January, intermediate card tender current use of insulin Z79.4 ; Type 2 diabetes mellitus with hyperglycemia E11.65 ; Stage III chronic kidney disease N18.3 ; Excessive oral secretions R68.89 ; Primary insomnia F51.01 ; Nightmares F51.5 ; History of GI bleed Z87.19 ; Esophageal stricture K22.2 ; Tooth pain K08.89 and H/O ileostomy Z98.890 [facility] [address] [place] [id number] January, C. difficile diarrhea A04.72 ; H/O ileos mikey Z98.890 ; Dizziness R42 ; Weakness R53.1 ; Nausea R11.0 ; Severe episode of recurrent major depressive disorder, with psychotic features F33.3 ; Insomnia, unspecified type G47.00 ; End stage renal disease N18.6 ; intermediate card tender current use of insulin Z79.4 ; Type 2 diabetes mellitus with unspecified complications E11.8 and End of life care Z51.5 [facility] [address] [place] [id number] January, Type 2 diabetes mellitus with hyperglyce deep, without long-term current use of insulin E11.65 ; End stage renal disease N18.6 ; Rheumatoid arthritis, involving unspecified site, unspecified rheumatoid factor presence M06.9 ; Paroxysmal atrial fibrillation I48.0 and Severe episode of recurrent major depressive disorder, with psychotic features F33.3 [facility] [address] [address] January, [place] [address] [address] January, Via [facility] [address] [place] [id number] January, Type 2 diabetes mellitus with hyperglyce deep, without long-term current use of insulin E11.65 ; End stage renal disease N18.6 ; Rheumatoid arthritis, involving unspecified site, unspecified rheumatoid factor presence M06.9 ; Primary insomnia F51.01 ; Paroxysmal atrial fibrillation I48.0 and Hyponatremia E87.1 [place] [address] [address] 16 Dec, 2018 End stage renal disease N18.6 and Type 2 diabetes mellitus with hyperglycemia, without long-term current use of insulin E11.65 [place] [address] [address] 15 Dec, 2018 [place] [address] [address] Dec, [place] [address] [address] Dec, [place] [address] [address] Dec, Type 2 diabetes mellitus without complic ations E11.9 ; intermediate card tender current use of insulin Z79.4 and Hyperglycemia R73.9 [place] [address] [address] Nov, Gastroesophageal reflux disease without esophagitis K21.9 [facility] [address] [facility] [id number] [address] [place] [address] Nov, Pain of right lower extremit y M79.604 [place] [address] [address] Nov, Shortness of breath R06.02 [facility] [address] [facility] [id number] [address] [place] [address] Oct, Multiple skin nodules R22.9 [place] [address] [address] 13 Oct, 2018 Cough R05 ; Pneumonia of both lower lobe s due to infectious organism J18.1 and Type 2 diabetes mellitus with hyperglycemia, without long-term current use of insulin E11.65 [place] [address] [address] Oct, [place] [address] [address] Sep, Abscess L02.[address] [address] Sep, Bronchitis J40 ; Abscess L02.91 and Arth ralgia, unspecified joint M25.[address] [address] Aug, Type 2 diabetes mellitus with hyperglyce deep, without long-term current use of insulin E11.65 [place] [address] [address] Aug, [place] [address] [address] Aug, Type 2 diabetes mellitus with hyperglyce deep, without long-term current use of insulin E11.65 ; Seborrheic keratoses L82.1 ; Other viral warts B07.8 and End stage renal disease N18.6 [place] [address] [address] Aug, Type 2 diabetes mellitus with hyperglyce deep, without long-term current use of insulin E11.65 [place] [address] [address] Jul, Type 2 diabetes mellitus with hyperglyce deep, without long-term current use of insulin E11.65 [place] [address] [address] Jul, Type 2 diabetes mellitus with hyperglyce deep, without long-term current use of insulin E11.65 ; Erectile dysfunction due to diseases classified elsewhere N52.1 and History of abscess of skin and subcutaneous tissue Z87.2 [place] [address] [address] Jul, [place] [address] [address] Jul, [place] [address] [address] Jun, Type 2 diabetes mellitus with hyperglyce deep, without long-term current use of insulin E11.65 [place] [address] [address] Jun, [place] [address] [address] Jun, Type 2 diabetes mellitus with hyperglyce deep, without long-term current use of insulin E11.65 [facility] [place] [address] [place] [address] Jun, Dysuria R30.0 and Acute cyst itis without hematuria N30.00 [place] [address] [address] Jun, Type 2 diabetes mellitus with hyperglyce deep, without long-term current use of insulin E11.65 [place] [address] [address] May, [facility] [place] [address] [place] [id number] [place] [address] May, Bacterial skin infection of upper extremity L08.9 [place] [address] [address] May, Type 2 diabetes mellitus with hyperglyce deep, without long-term current use of insulin E11.65 [place] [address] [address] Apr, End stage renal disease N18.6 [place] [address] [address] Apr, [place] [address] [place] [address] [place] [address] Apr, [place] [address] [address] Apr, Type 2 diabetes mellitus with hyperglyce deep, without long-term current use of insulin E11.65 [place] [address] [address] Apr, [place] [address] [address] Apr, [place] [address] [address] Apr, Via [facility] [address] [place] [id number] Apr, Type 2 diabetes mellitus with hyperglyce [...] hyperplasia with lower urinary tract symptoms N40.1 [place] [address] [place] [address] [place] [address] Apr, [place] [address] [address] Mar, [place] [address] [address] Mar, Via [facility] [address] [place] [id number] Mar, Type 2 diabetes mellitus with hyperglyce deep, without long-term current use of insulin E11.65 ; End stage renal disease N18.6 and Shortness of breath R06.02 [place] [address] [address] Mar, 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 [facility] [address] [facility] [place] [address] Mar, [place] [address] [place] [address] [place] [address] Mar, [place] [address] [place] [id number] [place] [address] Mar, [place] [address] [address] Feb, Via [facility] [address] [place] [id number] Feb, Encounter for examination for admission to care home Z02.2 ; Type 2 diabetes mellitus with hyperglycemia, without long-term current use of insulin E11.65 ; 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 ; Osteopenia of multiple sites M85.89 ; End stage renal disease N18.6 ; Dialysis patient Z99.2 and Rheumatoid arthritis, involving unspecified site, unspecified rheumatoid factor presence M06.9 [place] [address] [facility] [place] [address] Feb, [facility] [address] [address] May, 16 Dental examination Z01.[address] [facility] [address] [address] 27 May, [address] [facility] [address] [address] May, 16 Dental examination Z01.[address] [facility] [address] [address] May, [address] [facility] [address] [address] Apr, 16 Dental examination Z01.[address] [facility] [address] [address] Dec, 16 Dental examination Z01.[address] [facility] [address] [address] Oct, 16 Dental examination Z01.[address] [facility] [address] [place] [address] 18 Oct, 16 Dental examination Z01.[address] [facility] [place] [address] Sep, 16 [facility].20 [facility] [address] [place] [address] Aug, 15 Dental examination Z01.[address] [facility] [address] [place] [address] Jul, 15 Dental examination Z01.[address] [facility] [address] [place] [address] Jul, 15 Dental examination Z01.[address] [facility] [address] [place] [address] Jun, 15 Dental examination Z01.20 [facility] [address] [address] Dec, [facility] [address] [address] Dec, [facility] [address] [address] Mar, [facility] [address] [address] Mar, [facility] [address] [address] Mar, [facility] [address] [address] Feb, [facility] [address] [address] January, [place] [address] [address] January, IMMUNIZATIONS No Known Immunizations SOCIAL HISTORY Never Assessed REASON FOR VISIT Refill Request PLAN OF CARE VITAL SIGNS MEDICATIONS Medication Instructions Dosage Frequency Start Date End Date Duration S tatus Pantoprazole Sodium 40 mg Orally Once a day 1 tablet 24h 30 day(s) Active RESULTS No Results PROCEDURES No Known procedures INSTRUCTIONS MEDICATIONS ADMINISTERED No Known Medications MEDICAL (GENERAL) HISTORY Type Description Date Medical History Mild High Blood Pressure Medical History Diabetes Type 2 Medical History Arthritis Medical History 2019 Toxic Megacolon Medical History Pneumonia Medical History Colostomy status Medical History Generalized weakness Medical History Essential hypertension Medical History Primary osteoarthritis Medical History Anemia Medical History Coronary angioplasty status Medical History MDD (major depressive disorder) Medical History Generalized pain Medical History Dyspnea Medical History COPD (chronic obstructive pulmonary dise ase) Medical History Type 2 diabetes mellitus with autonomic neuropathy Medical History BPH (benign prostatic hyperplasia) Medical History Hemorrhoids Medical History History of nicotine dependence Medical History Gastro-esophageal reflux disease without esophagitis Medical History History of falling Medical History Cough Medical History Edema, unspecified Medical History Congestive heart failure Medical History RA (rheumatoid arthritis) Medical History Afib Medical History Macular degeneration Medical History Psoriasis Medical History Hyperlipidemia Medical History Chronic kidney disease, stage 4 (severe) Medical History Chest pain Surgical History umbilical hernia Surgical History heart cath stent placed 11/2018 Surgical History illeostomy 01/2019 Hospitalization History Renal failure 02/2018 Hospitalization History Chest pain-[facility] 03/31/18 Hospitalization History Lower GI bleed and anemia requiring transfusions 12/2018 Hospitalization History Vin Colon, Sepsis, Illeostomy, C di ff 01/2019 Hospitalization History [facility] ER 08/2019
--- OUTSIDE RECORDS SUMMARY | 2019-12-04 22:25 | XMS REPORT | Continuity of Care Document ---
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 04/01/2018 KRISTA EPSTEIN MD Ot I12 .0 [...] 04/01/2018 KRISTA EPSTEIN MD Ot Z79 .4 AUTO BODY PAINTER (CURRENT) USE OF INSULIN 04/01/2018 KRISTA EPSTEIN MD Ot Z79.899 OTHER AUTO BODY PAINTER (CURRENT) DRUG THERAPY 04/01/2018 KRISTA EPSTEIN MD Ot Z87.891 PERSONAL HISTORY OF NICOTINE DEPENDENCE 04/01/2018 KRISTA EPSTEIN MD Ot Z99 .2 DEPENDENCE ON RENAL DIALYSIS 04/01/2018 KRISTA EPSTEIN MD Ot D64 .9 ANEMIA, UNSPECIFIED 04/01/2018 KRISTA EPSTEIN MD Ot 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 04/01/2018 KRISTA EPSTEIN MD Ot I12 .0 [...] 04/01/2018 KRISTA EPSTEIN MD Ot Z79 .4 LONGTERM (CURRENT) USE OF INSULIN 04/01/2018 KRISTA EPSTEIN MD Ot Z79.899 OTHER LONGTERM (CURRENT) DRUG THERAPY 04/01/2018 KRISTA EPSTEIN MD Ot Z87.891 PERSONAL HISTORY OF NICOTINE DEPENDENCE 04/01/2018 KRISTA EPSTEIN MD Ot Z99 .2 DEPENDENCE ON RENAL DIALYSIS 04/03/2018 KRISTA EPSTEIN MD Ot D64 .9 ANEMIA, UNSPECIFIED 04/03/2018 KRISTA EPSTEIN MD Ot 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 04/03/2018 KRISTA EPSTEIN MD Ot I12 .0 [...] 04/03/2018 KRISTA EPSTEIN MD Ot Z79 .4 AUTO BODY PAINTER (CURRENT) USE OF INSULIN 04/03/2018 KRISTA EPSTEIN MD Ot Z79.899 OTHER AUTO BODY PAINTER (CURRENT) DRUG THERAPY 04/03/2018 KRISTA EPSTEIN MD [...] FEVER) 07/23/2018 CARLOS CEE DOI Ot Z79.84 LONGTERM (CURRENT) USE OF ORAL HYPOGLYC 07/23/2018 CARLOS [...] FEVER) 07/24/2018 JACKELINE CEE DO Ot Z79.84 LONGTERM (CURRENT) USE OF ORAL HYPOGLYC 07/24/2018 CARLOS [...] FEVER) 07/24/2018 JAYE SMITH JACKELINE Ot Z79.84 LONGTERM (CURRENT) USE OF ORAL HYPOGLYC 07/24/2018 JAYE [...] Ot 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 11/30/2018 CARLOS CEE DOI [...] BREATH 11/30/2018 JAYE SMITH JACKELINE Ot 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 11/30/2018 JAYE SMITH JACKELINE Ot Z79.4 LONGTERM (CURRENT) USE OF INSULIN 11/30/2018 JAYE SMITH [...] Ot 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 0 DEHYDRATION 12/16/2018 DIPIKA PACK MD, Ot I12. 9 HYPERTENSIVE CHRONIC KIDNEY DISEASE W ST 12/16/2018 DIPIKA PACK MD, Ot I25. 10 ATHSCL HEART DISEASE OF [place] CORONARY 12/16/2018 DIPIKA PACK MD Ot I48. [...] 12/16/2018 DIPIKA PACK MD, Ot Z79. 01 AUTO BODY 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 12/16/2018 DIPIKA PACK MD, Ot Z79. 4 LONGTERM (CURRENT) USE OF INSULIN 12/16/2018 DIPIKA PACK MD, Ot Z87.891 PERSONAL HISTORY OF NICOTINE DEPENDENCE 12/16/2018 DIPIKA PACK MD, Ot Z95. 5 PRESENCE OF CORONARY ANGIOPLASTY IMPLANT 12/18/2018 DIPIKA PACK MD, Ot E11. 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 0 DEHYDRATION 12/18/2018 DIPIKA PACK MD, Ot I12. 9 HYPERTENSIVE CHRONIC KIDNEY DISEASE W ST 12/18/2018 DIPIKA PACK MD, Ot I25. 10 ATHSCL HEART DISEASE OF [place] CORONARY 12/18/2018 DIPIKA PACK MD, Ot I48. [...] 12/18/2018 DIPIKA PACK MD, Ot Z79. 01 LONGTERM (CURRENT) USE OF ANTICOAGULANT 12/18/2018 DIPIKA PACK MD, Ot Z79. 4 LONGTERM (CURRENT) USE OF INSULIN 12/18/2018 DIPIKA PACK MD, Ot Z87.891 PERSONAL HISTORY OF NICOTINE DEPENDENCE 12/18/2018 DIPIKA PACK MD, Ot Z95. 5 PRESENCE OF CORONARY ANGIOPLASTY IMPLANT 12/18/2018 DIPIKA PACK MD, Ot E11. 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 0 DEHYDRATION 12/18/2018 DIPIKA PACK MD, Ot I12. 9 HYPERTENSIVE CHRONIC KIDNEY DISEASE W ST 12/18/2018 DIPIKA PACK MD, Ot I25. 10 ATHSCL HEART DISEASE OF [place] CORONARY 12/18/2018 DIPIKA PACK MD, Ot I48. 0 PAROXYSMAL ATRIAL FIBRILLATION 12/18/2018 DIPIKA PACK MD, Ot J11. 1 FLU DUE TO UNIDENTIFIED INFLUENZA VIRUS 12/18/2018 DIPIKA PACK MD, Ot J44. 9 CHRONIC OBSTRUCTIVE PULMONARY DISEASE, U 12/18/2018 DIPIKA PACK MD, Ot M06. 9 RHEUMATOID ARTHRITIS, UNSPECIFIED 12/18/2018 IDPIKA PACK MD, Ot N17. 9 ACUTE KIDNEY FAILURE, UNSPECIFIED 12/18/2018 DIPIKA PACK MD, Ot N18. 4 CHRONIC KIDNEY DISEASE, STAGE 4 (SEVERE) 12/18/2018 DIPIKA PACK MD, Ot N40. 0 BENIGN PROSTATIC HYPERPLASIA WITHOUT LOW 12/18/2018 DIPIKA PACK MD, Ot R09. 02 HYPOXEMIA 12/18/2018 DIPIKA PACK MD, Ot R60. 0 LOCALIZED EDEMA 12/18/2018 DIPIKA PACK MD, Ot Z79. 01 LONGTERM (CURRENT) USE OF ANTICOAGULANT 12/18/2018 DIPIKA PACK MD, Ot Z79. 4 AUTO BODY PAINTER (CURRENT) USE OF INSULIN 12/18/2018 DIPIKA PACK MD, Ot Z87.891 PERSONAL HISTORY OF NICOTINE DEPENDENCE 12/18/2018 DIPIKA PACK MD, Ot Z95. 5 PRESENCE OF CORONARY ANGIOPLASTY IMPLANT 12/18/2018 DIPIKA PACK MD, Ot E11. 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 0 DEHYDRATION 12/18/2018 DIPIKA PACK MD, Ot I12. 9 HYPERTENSIVE CHRONIC KIDNEY DISEASE W ST 12/18/2018 DIPIKA PACK MD, Ot I25. 10 ATHSCL HEART DISEASE OF [place] CORONARY 12/18/2018 DIPIKA PACK MD, Ot I48. [...] 12/18/2018 DIPIKA PACK MD, Ot Z79. 01 LONGTERM (CURRENT) USE OF ANTICOAGULANT 12/18/2018 DIPIKA PACK MD, Ot Z79. 4 AUTO BODY PAINTER (CURRENT) USE OF INSULIN 12/18/2018 DIPIKA PACK MD, Ot Z87.891 PERSONAL HISTORY OF NICOTINE DEPENDENCE 12/18/2018 DIPIKA PACK MD, Ot Z95. 5 PRESENCE OF CORONARY ANGIOPLASTY IMPLANT 12/20/2018 AQUILES LAWTON MD Ot E11. 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 10 ATHSCL HEART DISEASE OF [place] CORONARY 12/20/2018 AQUILES LAWTON MD Ot K21. 9 GASTRO-ESOPHAGEAL REFLUX DISEASE WITHOUT 12/20/2018 AQUILES LAWTON MD Ot K62. 5 HEMORRHAGE OF ANUS AND RECTUM 12/20/2018 AQUILES LAWTON MD Ot M06. 9 RHEUMATOID ARTHRITIS, UNSPECIFIED 12/20/2018 AQUILES LAWTON MD Ot N18. 6 END STAGE RENAL DISEASE 12/20/2018 AQUILES LAWTON MD, Ot Z79. 01 AUTO BODY 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 12/20/2018 AQUILES LAWTON MD Ot Z79. 4 LONGTERM (CURRENT) USE OF INSULIN 12/20/2018 AQUILES LAWTON MD Ot Z79. 52 AUTO BODY PAINTER (CURRENT) USE OF SYSTEMIC STER 12/20/2018 AQUILES LAWTON MD Ot Z79. 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 10 ATHSCL HEART DISEASE OF [place] CORONARY 12/23/2018 AQUILES LAWTON MD Ot K21. 9 GASTRO-ESOPHAGEAL REFLUX DISEASE WITHOUT 12/23/2018 AQUILES LAWTON MD Ot K62. 5 HEMORRHAGE OF ANUS AND RECTUM 12/23/2018 AQUILES LAWTON MD Ot M06. 9 RHEUMATOID ARTHRITIS, UNSPECIFIED 12/23/2018 AQUILES LAWTON MD Ot N18. 6 END STAGE RENAL DISEASE 12/23/2018 AQIULES LAWTON MD, Ot Z79. 01 LONGTERM (CURRENT) USE OF ANTICOAGULANT 12/23/2018 AQUILES LAWTON MD Ot Z79. 4 AUTO BODY PAINTER (CURRENT) USE OF INSULIN 12/23/2018 AQUILES LAWTON MD Ot Z79. 52 LONGTERM (CURRENT) USE OF SYSTEMIC STER 12/23/2018 AQUILES LAWTON MD, Ot Z79. 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 01/05/2019 MARILEE PRIDE MD, Ot E11.43 TYPE 2 DIABETES W DIABETIC AUTONOMIC (PO 01/05/2019 MARILEE PRIDE MD, Ot I12.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 01/05/2019 MARILEE PRIDE MD, Ot I25.10 ATHSCL HEART DISEASE OF [place] CORONARY 01/05/2019 MARILEE PRIDE MD, Ot K31.84 [...] BLO 01/05/2019 MARILEE PRIDE MD Ot Z79.02 LONGTERM (CURRENT) USE OF ANTITHROMBOTI 01/05/2019 MARILEE PRIDE MD Ot Z79.4 LONGTERM (CURRENT) USE OF INSULIN 01/05/2019 MARILEE PRIDE MD, Ot Z79.52 AUTO BODY PAINTER (CURRENT) USE OF SYSTEMIC STER 01/05/2019 MARILEE [...] 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 01/07/2019 MARILEE PRIDE MD, Ot E11.43 TYPE 2 DIABETES W DIABETIC AUTONOMIC (PO 01/07/2019 MARILEE PRIDE MD, Ot I12.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 01/07/2019 MARILEE PRIDE MD, Ot I25.10 ATHSCL HEART DISEASE OF [place] CORONARY 01/07/2019 MARILEE PRIDE MD, Ot K31.84 [...] BLO 01/07/2019 MARILEE PRIDE MD, Ot Z79.02 AUTO BODY PAINTER (CURRENT) USE OF ANTITHROMBOTI 01/07/2019 MARILEE PRIDE MD, Ot Z79.4 LONGTERM (CURRENT) USE OF INSULIN 01/07/2019 MARILEE PRIDE MD, Ot Z79.52 LONGTERM (CURRENT) USE OF SYSTEMIC STER 01/07/2019 MARILEE [...] KEANU Ot I25.10 ATHSCL HEART DISEASE OF [place] CORONARY 02/21/2019 JOSIE ESPINOZAIS Ot K21.9 GASTRO-ESOPHAGEAL REFLUX DISEASE WITHOUT 02/21/2019 JOSIE ESPINOZAIS Ot 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, UNSPECIFIED 02/21/2019 ALEXIS KEANU Ot R07.81 PLEURODYNIA 02/21/2019 BERNOT KEANU Ot Z79.02 LONGTERM (CURRENT) USE OF ANTITHROMBOTI 02/21/2019 BERNOT KEANU Ot Z79.4 AUTO BODY PAINTER (CURRENT) USE OF INSULIN 02/21/2019 ALEXIS KEANU Ot Z79.52 LONGTERM (CURRENT) USE OF SYSTEMIC STER 02/21/2019 JOSIE [...] ESPINOZAIS Ot I25.10 ATHSCL HEART DISEASE OF [place] CORONARY 02/25/2019 JOSIE ESPINOZAIS Ot K21.9 GASTRO-ESOPHAGEAL REFLUX DISEASE WITHOUT 02/25/2019 JOSIE ESPINOZAIS Ot 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, UNSPECIFIED 02/25/2019 ALEXIS KEANU Ot R07.81 PLEURODYNIA 02/25/2019 BERNOT KEANU Ot Z79.02 AUTO BODY PAINTER (CURRENT) USE OF ANTITHROMBOTI 02/25/2019 TIARAOT KEANU Ot Z79.4 LONGTERM (CURRENT) USE OF INSULIN 02/25/2019 ALEXIS KEANU Ot Z79.52 AUTO BODY PAINTER (CURRENT) USE OF SYSTEMIC STER 02/25/2019 KEANU [...] MD Ot I25.10 ATHSCL HEART DISEASE OF [place] CORONARY 04/28/2019 CHRISTIAN JOHN MD Ot I48.91 [...] RESUSCITATE 04/28/2019 CHRISTIAN JOHN MD Ot 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 04/28/2019 CHRISTIAN JOHN [...] MD Ot I25.10 ATHSCL HEART DISEASE OF [place] CORONARY 04/28/2019 CHRISTIAN JOHN MD Ot I48 [...] RESUSCITATE 04/28/2019 CHRISTIAN JOHN MD Ot 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 04/28/2019 CHRISTIAN JOHN [...] MD Ot I25.10 ATHSCL HEART DISEASE OF [place] CORONARY 04/30/2019 CHRISTIAN JOHN MD Ot I48.91 [...] RESUSCITATE 04/30/2019 CHRISTIAN JOHN MD Ot Z79.01 LONGTERM (CURRENT) USE OF ANTICOAGULANT 04/30/2019 CHRISTIAN JOHN [...] MD Ot I25.10 ATHSCL HEART DISEASE OF [place] CORONARY 04/30/2019 CHRISTIAN JOHN MD Ot I48.91 [...] RESUSCITATE 04/30/2019 CHRISTIAN JOHN MD Ot 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 04/30/2019 CHRISTIAN JOHN [...] MD, Ot I25.10 ATHSCL HEART DISEASE OF [place] CORONARY 04/30/2019 CHRISTIAN JOHN MD Ot I48.91 [...] RESUSCITATE 04/30/2019 CHRISTIAN JOHN MD, Ot Z79.01 LONGTERM (CURRENT) USE OF ANTICOAGULANT 04/30/2019 CHRISTIAN JOHN MD Ot Z87.891 PERSONAL HISTORY OF NICOTINE DEPENDENCE 04/30/2019 CHRISTIAN JOHN MD Ot Z90.49 ACQUIRED ABSENCE OF OTHER SPECIFIED PART 04/30/2019 CHRISTIAN JOHN MD Ot Z93 .3 COLOSTOMY STATUS 04/30/2019 CHRISTIAN JOHN MD Ot 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 06/21/2019 IGNACIA BURGOS MD Ot 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 06/21/2019 IGNACIA BURGOS MD, Ot E11.52 TYPE 2 DIABETES W DIABETIC PERIPHERAL AN 06/21/2019 IGNACIA BURGOS MD, Ot E11.621 TYPE 2 DIABETES MELLITUS WITH FOOT ULCER 06/21/2019 IGNACIA BURGOS MD Ot E11.65 TYPE 2 DIABETES MELLITUS WITH HYPERGLYCE 06/21/2019 IGNACIA BURGOS MD, Ot I96 GANGRENE, NOT ELSEWHERE CLASSIFIED 06/21/2019 IGNACIA BUGROS MD, Ot N18 .4 CHRONIC KIDNEY DISEASE, STAGE 4 (SEVERE) 06/21/2019 IGNACIA BURGOS MD, Ot R68.89 OTHER GENERAL SYMPTOMS AND SIGNS 06/22/2019 IGNACIA BURGOS MD, Ot 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 06/22/2019 IGNACIA BURGOS MD Ot E11.52 TYPE [...] 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 06/23/2019 IGNACIA BURGOS MD, Ot E11.52 TYPE [...] 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 06/24/2019 IGNACIA BURGOS MD, Ot E11.621 TYPE [...] 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 06/30/2019 IGNACIA BURGOS MD, Ot E11.52 TYPE [...] 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 07/01/2019 IGNACIA BURGOS MD, Ot E11.621 TYPE [...] 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 07/14/2019 IGNACIA BURGOS MD, Ot E11.52 TYPE [...] 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 07/14/2019 IGNACIA BURGOS MD, Ot E11.52 TYPE [...] 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 07/19/2019 IGNACIA BURGOS MD, Ot E11.52 TYPE [...] R68.89 OTHER GENERAL SYMPTOMS AND SIGNS 08/31/2019 JAEY DO JACKELINE Ot E11.9 TYPE 2 DIABETES MELLITUS WITHOUT COMPLIC 08/31/2019 JAYE DO JACKELINE Ot H35.30 UNSPECIFIED MACULAR DEGENERATION 08/31/2019 JAYE DO JACKELINE Ot I12.9 HYPERTENSIVE CHRONIC KIDNEY DISEASE W ST 08/31/2019 JAYE SMITH JACKELINE Ot I25.10 ATHSCL HEART DISEASE OF [place] CORONARY 08/31/2019 JAYE DO JACKELINE Ot I48.0 [...] LOW 08/31/2019 JACKELINE CEE DO Ot 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 08/31/2019 JACKELINE CEE DO Ot Z79.52 AUTO BODY PAINTER (CURRENT) USE OF SYSTEMIC STER 08/31/2019 JACKELINE [...] DOI Ot I25.10 ATHSCL HEART DISEASE OF [place] CORONARY 08/31/2019 JACKELINE CEE DO Ot I48.0 [...] CHRONIC KIDNEY DISEASE, STAGE 3 (MODERAT 08/31/2019 JACKELINE CEE DO Ot N18.9 CHRONIC KIDNEY DISEASE, UNSPECIFIED 08/31/2019 CARLOS CEE DOI Ot N40.0 BENIGN PROSTATIC HYPERPLASIA WITHOUT LOW 08/31/2019 JACKELINE CEE DO Ot R53.1 WEAKNESS 08/31/2019 JACKELINE CEE DO Ot Z79.01 LONGTERM (CURRENT) USE OF ANTICOAGULANT 08/31/2019 CARLOS CEE DOI Ot Z79.4 LONGTERM (CURRENT) USE OF INSULIN 08/31/2019 CARLOS CEE DOI Ot Z79.52 LONGTERM (CURRENT) USE OF SYSTEMIC STER 08/31/2019 CARLOS CEE DOI Ot Z86.14 PERSONAL HISTORY OF METHICILLIN RESIS ST 08/31/2019 JAYE SMITH JACKELINE Ot Z90.49 ACQUIRED ABSENCE OF OTHER SPECIFIED PART 08/31/2019 JACKELINE CEE DO Ot Z93.2 ILEOSTOMY STATUS 08/31/2019 CARLOS CEE DOI Ot Z93.3 COLOSTOMY STATUS 08/31/2019 CARLOS CEE DOI Ot Z95.5 PRESENCE OF CORONARY ANGIOPLASTY IMPLANT 09/13/2019 ANGELA LU APRN Ot E11 .9 TYPE 2 DIABETES MELLITUS WITHOUT COMPLIC 09/13/2019 ANGELA LU APRN Ot I10 ESSENTIAL (PRIMARY) HYPERTENSION 09/13/2019 ANGELA LU APRN Ot I25.10 ATHSCL HEART DISEASE OF [place] CORONARY 09/13/2019 ANGELA LU APRN Ot K21 .9 GASTRO-ESOPHAGEAL REFLUX DISEASE WITHOUT 09/13/2019 ANGELA LU APRN Ot L03.116 CELLULITIS OF LEFT LOWER LIMB 09/13/2019 ANGELA LU APRN Ot M06 .9 RHEUMATOID ARTHRITIS, UNSPECIFIED 09/13/2019 ANGELA LU APRN Ot M25.562 PAIN IN LEFT KNEE 09/13/2019 ANGELA LU APRN Ot Z79.01 LONGTERM (CURRENT) USE OF ANTICOAGULANT 09/13/2019 ANGELA LU APRN Ot Z79.02 AUTO BODY PAINTER (CURRENT) USE OF ANTITHROMBOTI 09/13/2019 ANGELA LU APRN Ot Z79 .4 LONGTERM (CURRENT) USE OF INSULIN 09/13/2019 ANGELA LU APRN Ot Z79.52 LONGTERM (CURRENT) USE OF SYSTEMIC STER 09/13/2019 ANGELA LU APRN Ot Z80 .0 FAMILY HISTORY OF MALIGNANT NEOPLASM OF 09/13/2019 ANGELA LU APRN Ot Z87.891 PERSONAL HISTORY OF NICOTINE DEPENDENCE 09/13/2019 ANGELA LU APRN Ot 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 09/16/2019 ANGELA LU APRN Ot E11 .9 TYPE 2 DIABETES MELLITUS WITHOUT COMPLIC 09/16/2019 ANGELA LU APRN Ot I10 ESSENTIAL (PRIMARY) HYPERTENSION 09/16/2019 ANGELA LU APRN Ot I25.10 ATHSCL HEART DISEASE OF [place] CORONARY 09/16/2019 ANGELA LU APRN Ot K21 .9 GASTRO-ESOPHAGEAL REFLUX DISEASE WITHOUT 09/16/2019 ANGELA LU APRN Ot L03.116 CELLULITIS OF LEFT LOWER LIMB 09/16/2019 ANGELA LU APRN Ot M06 .9 RHEUMATOID ARTHRITIS, UNSPECIFIED 09/16/2019 ANGELA LU APRN Ot M25.562 PAIN IN LEFT KNEE 09/16/2019 ANGELA LU APRN Ot Z79.01 LONGTERM (CURRENT) USE OF ANTICOAGULANT 09/16/2019 ANGELA LU APRN Ot Z79.02 LONGTERM (CURRENT) USE OF ANTITHROMBOTI 09/16/2019 ANGELA LU APRN Ot Z79 .4 AUTO BODY PAINTER (CURRENT) USE OF INSULIN 09/16/2019 ANGELA LU APRN Ot Z79.52 AUTO BODY PAINTER (CURRENT) USE OF SYSTEMIC STER 09/16/2019 ANGELA LU APRN Ot Z80 .0 FAMILY HISTORY OF MALIGNANT NEOPLASM OF 09/16/2019 ANGELA LU APRN Ot Z87.891 PERSONAL HISTORY OF NICOTINE DEPENDENCE 09/16/2019 ANGELA LU APRN Ot 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 09/25/2019 KRISTA EPSTEIN MD, Ot A41.89 OTHER SPECIFIED SEPSIS 09/25/2019 KRISTA EPSTEIN MD, Ot B97.89 OTH VIRAL AGENTS THE CAUSE OF DISEASE 09/25/2019 KRISTA EPSTEIN MD, Ot E11 .9 TYPE 2 DIABETES MELLITUS WITHOUT COMPLIC 09/25/2019 KRISTA EPSTEIN MD, Ot E86 .9 VOLUME DEPLETION, UNSPECIFIED 09/25/2019 KRISTA EPSTEIN MD, Ot E87 .2 ACIDOSIS 09/25/2019 KRISTA EPSTEIN MD, Ot F32 .9 MAJOR DEPRESSIVE DISORDER, SINGLE EPISOD 09/25/2019 KRISTA EPSTEIN MD, Ot H35.30 UNSPECIFIED MACULAR DEGENERATION 09/25/2019 KRISTA EPSTEIN MD, Ot 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 09/25/2019 KRISTA EPSTEIN MD, Ot I21.A1 MYOCARDIAL INFARCTION TYPE 2 09/25/2019 KRISTA EPSTEIN MD, Ot I25.10 ATHSCL HEART DISEASE OF [place] CORONARY 09/25/2019 KRISTA EPSTEIN MD Ot I48.20 CHRONIC ATRIAL FIBRILLATION, UNSPECIFIED 09/25/2019 KRISTA EPSTEIN MD, Ot I48.92 UNSPECIFIED ATRIAL FLUTTER 09/25/2019 KRISTA EPSTEIN MD, Ot I50.31 ACUTE DIASTOLIC (CONGESTIVE) HEART FAILU 09/25/2019 KRISTA EPSTEIN MD, Ot J10 .1 FLU DUE TO OTH IDENT INFLUENZA VIRUS W O 09/25/2019 KRISTA EPSTEIN MD, Ot J44 .1 CHRONIC OBSTRUCTIVE PULMONARY DISEASE W 09/25/2019 KRISTA EPSTEIN MD, Ot J96.01 ACUTE RESPIRATORY FAILURE WITH HYPOXIA 09/25/2019 KRISTA EPSTEIN MD, Ot K21 .9 GASTRO-ESOPHAGEAL REFLUX DISEASE WITHOUT 09/25/2019 KRISTA EPSTEIN MD Ot L03.116 CELLULITIS OF LEFT LOWER LIMB 09/25/2019 KRISTA EPSTEIN MD, Ot L40 .9 PSORIASIS, UNSPECIFIED 09/25/2019 KRISTA EPSTEIN MD, Ot M06 .9 RHEUMATOID ARTHRITIS, UNSPECIFIED 09/25/2019 KRISTA EPSTEIN MD, Ot N17 .9 ACUTE KIDNEY FAILURE, UNSPECIFIED 09/25/2019 KRISTA EPSTEIN MD, Ot N18 .4 CHRONIC KIDNEY DISEASE, STAGE 4 (SEVERE) 09/25/2019 KRISTA EPSTEIN MD, Ot N40 .0 BENIGN PROSTATIC HYPERPLASIA WITHOUT LOW 09/25/2019 KRISTA EPSTEIN MD Ot R65.20 SEVERE SEPSIS WITHOUT SEPTIC SHOCK 09/25/2019 KRISTA EPSTEIN MD, Ot Z66 DO NOT RESUSCITATE 09/25/2019 KRISTA EPSTEIN MD, Ot Z79.01 LONGTERM (CURRENT) USE OF ANTICOAGULANT 09/25/2019 KRISTA EPSTEIN MD, Ot Z87.891 PERSONAL HISTORY OF NICOTINE DEPENDENCE 09/25/2019 KRISTA EPSTEIN MD, Ot Z93 .3 COLOSTOMY STATUS 09/25/2019 KRISTA EPSTEIN MD, Ot 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 09/27/2019 KRISTA EPSTEIN MD, Ot A41.89 OTHER SPECIFIED SEPSIS 09/27/2019 KRISTA EPSTEIN MD, Ot B97.89 OTH VIRAL AGENTS THE CAUSE OF DISEASE 09/27/2019 KRISTA EPSTEIN MD, Ot E11 .9 TYPE 2 DIABETES MELLITUS WITHOUT COMPLIC 09/27/2019 KRISTA EPSTEIN MD, Ot E86 .9 VOLUME DEPLETION, UNSPECIFIED 09/27/2019 KRISTA EPSTEIN MD, Ot E87 .2 ACIDOSIS 09/27/2019 KRISTA EPSTEIN MD, Ot F32 .9 MAJOR DEPRESSIVE DISORDER, SINGLE EPISOD 09/27/2019 KRISTA EPSTEIN MD, Ot H35.30 UNSPECIFIED MACULAR DEGENERATION 09/27/2019 KRISTA EPSTEIN MD, Ot 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 09/27/2019 KRISTA EPSTEIN MD, Ot I21.A1 MYOCARDIAL INFARCTION TYPE 2 09/27/2019 KRISTA EPSTEIN MD, Ot I25.10 ATHSCL HEART DISEASE OF [place] CORONARY 09/27/2019 LUCIAN MD, KRISTA N Ot I48.20 CHRONIC ATRIAL FIBRILLATION, UNSPECIFIED 09/27/2019 KRISTA EPSTEIN MD, Ot I48.92 UNSPECIFIED ATRIAL FLUTTER 09/27/2019 KRISTA EPSTEIN MD, Ot I50.31 ACUTE DIASTOLIC (CONGESTIVE) HEART FAILU 09/27/2019 KRISTA EPSTEIN MD, Ot J10 .1 FLU DUE TO OTH IDENT INFLUENZA VIRUS W O 09/27/2019 KRISTA EPSTEIN MD, Ot J44 .1 CHRONIC OBSTRUCTIVE PULMONARY DISEASE W 09/27/2019 KRISTA EPSTEIN MD, Ot J96.01 ACUTE RESPIRATORY FAILURE WITH HYPOXIA 09/27/2019 KRISTA EPSTEIN MD, Ot K21 .9 GASTRO-ESOPHAGEAL REFLUX DISEASE WITHOUT 09/27/2019 KRISTA EPSTEIN MD Ot L03.116 CELLULITIS OF LEFT LOWER LIMB 09/27/2019 KRISTA EPSTEIN MD, Ot L40 .9 PSORIASIS, UNSPECIFIED 09/27/2019 KRISTA EPSTEIN MD, Ot M06 .9 RHEUMATOID ARTHRITIS, UNSPECIFIED 09/27/2019 KRISTA EPSTEIN MD, Ot N17 .9 ACUTE KIDNEY FAILURE, UNSPECIFIED 09/27/2019 KRISTA EPSTEIN MD, Ot N18 .4 CHRONIC KIDNEY DISEASE, STAGE 4 (SEVERE) 09/27/2019 KRISTA EPSTEIN MD, Ot N40 .0 BENIGN PROSTATIC HYPERPLASIA WITHOUT LOW 09/27/2019 KRISTA EPSTEIN MD, Ot R65.20 SEVERE SEPSIS WITHOUT SEPTIC SHOCK 09/27/2019 KRISTA EPSTEIN MD, Ot Z66 DO NOT RESUSCITATE 09/27/2019 KRISTA EPSTEIN MD, Ot 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 09/27/2019 KRISTA EPSTEIN MD, Ot Z87.891 PERSONAL HISTORY OF NICOTINE DEPENDENCE 09/27/2019 KRSITA EPSTEIN MD, Ot Z93 .3 COLOSTOMY STATUS 09/27/2019 KRISTA EPSTEIN MD, Ot 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 09/28/2019 KIRSTA EPSTEIN MD, Ot A41.89 OTHER SPECIFIED SEPSIS 09/28/2019 KRISTA EPSTEIN MD, Ot B97.89 OTH VIRAL AGENTS THE CAUSE OF DISEASE 09/28/2019 KRISTA EPSTEIN MD Ot E11 .9 TYPE 2 DIABETES MELLITUS WITHOUT COMPLIC 09/28/2019 KRISTA EPSTEIN MD, Ot E86 .9 VOLUME DEPLETION, UNSPECIFIED 09/28/2019 KRISTA EPSTEIN MD, Ot E87 .2 ACIDOSIS 09/28/2019 KRISTA EPSTEIN MD, Ot F32 .9 MAJOR DEPRESSIVE DISORDER, SINGLE EPISOD 09/28/2019 KRISTA EPSTEIN MD, Ot H35.30 UNSPECIFIED MACULAR DEGENERATION 09/28/2019 KRISTA EPSTEIN MD, Ot 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 09/28/2019 KRISTA EPSTEIN MD, Ot I21.A1 MYOCARDIAL INFARCTION TYPE 2 09/28/2019 KRISTA EPSTEIN MD, Ot I25.10 ATHSCL HEART DISEASE OF [place] CORONARY 09/28/2019 KRISTA EPSTEIN MD, Ot I48.20 CHRONIC ATRIAL FIBRILLATION, UNSPECIFIED 09/28/2019 KRISTA EPSTEIN MD, Ot I48.92 UNSPECIFIED ATRIAL FLUTTER 09/28/2019 KRISTA EPSTEIN MD, Ot I50.31 ACUTE DIASTOLIC (CONGESTIVE) HEART FAILU 09/28/2019 KRISTA EPSTEIN MD, Ot J10 .1 FLU DUE TO OTH IDENT INFLUENZA VIRUS W O 09/28/2019 KRISTA EPSTEIN MD, Ot J44 .1 CHRONIC OBSTRUCTIVE PULMONARY DISEASE W 09/28/2019 KRISTA EPSTEIN MD, Ot J96.01 ACUTE RESPIRATORY FAILURE WITH HYPOXIA 09/28/2019 KRISTA EPSTEIN MD, Ot K21 .9 GASTRO-ESOPHAGEAL REFLUX DISEASE WITHOUT 09/28/2019 KRISTA EPSTEIN MD, Ot L03.116 CELLULITIS OF LEFT LOWER LIMB 09/28/2019 KRISTA EPSTEIN MD, Ot L40 .9 PSORIASIS, UNSPECIFIED 09/28/2019 KRISTA EPSTEIN MD, Ot M06 .9 RHEUMATOID ARTHRITIS, UNSPECIFIED 09/28/2019 KRISTA EPSTEIN MD, Ot N17 .9 ACUTE KIDNEY FAILURE, UNSPECIFIED 09/28/2019 KRISTA EPSTEIN MD, Ot N18 .4 CHRONIC KIDNEY DISEASE, STAGE 4 (SEVERE) 09/28/2019 KRISTA EPSTEIN MD Ot N40 .0 BENIGN PROSTATIC HYPERPLASIA WITHOUT LOW 09/28/2019 KRISTA EPSTEIN MD, Ot R65.20 SEVERE SEPSIS WITHOUT SEPTIC SHOCK 09/28/2019 KRISTA EPSTEIN MD Ot Z66 DO NOT RESUSCITATE 09/28/2019 KRISTA EPSTEIN MD, Ot 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 09/28/2019 KRISTA EPSTEIN MD, Ot Z87.891 PERSONAL HISTORY OF NICOTINE DEPENDENCE 09/28/2019 KRISTA EPSTEIN MD, Ot Z93 .3 COLOSTOMY STATUS 09/28/2019 KRISTA EPSTEIN MD, Ot 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 09/28/2019 KRISTA EPSTEIN MD, Ot A41.89 OTHER SPECIFIED SEPSIS 09/28/2019 KRISTA EPSTEIN MD, Ot B97.89 OTH VIRAL AGENTS THE CAUSE OF DISEASE 09/28/2019 KRISTA EPSTEIN MD, Ot E11 .9 TYPE 2 DIABETES MELLITUS WITHOUT COMPLIC 09/28/2019 KRISTA EPSTEIN MD, Ot E86 .9 VOLUME DEPLETION, UNSPECIFIED 09/28/2019 KRISTA EPSTEIN MD Ot E87 .2 ACIDOSIS 09/28/2019 KRISTA EPSTEIN MD, Ot E87 .5 HYPERKALEMIA 09/28/2019 KRISTA EPSTEIN MD, Ot F32 .9 MAJOR DEPRESSIVE DISORDER, SINGLE EPISOD 09/28/2019 KRISTA EPSTEIN MD, Ot H35.30 UNSPECIFIED MACULAR DEGENERATION 09/28/2019 KRISTA EPSTEIN MD, Ot 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 09/28/2019 KRISTA EPSTEIN MD, Ot I21.A1 MYOCARDIAL INFARCTION TYPE 2 09/28/2019 KRISTA EPSTEIN MD, Ot I25.10 ATHSCL HEART DISEASE OF [place] CORONARY 09/28/2019 KRISTA EPSTEIN MD, Ot I48.20 CHRONIC ATRIAL FIBRILLATION, UNSPECIFIED 09/28/2019 KRISTA EPSTEIN MD, Ot I48.92 UNSPECIFIED ATRIAL FLUTTER 09/28/2019 KRISTA EPSTEIN MD, Ot I50.31 ACUTE DIASTOLIC (CONGESTIVE) HEART FAILU 09/28/2019 KRISTA EPSTEIN MD, Ot J10 .1 FLU DUE TO OTH IDENT INFLUENZA VIRUS W O 09/28/2019 KRISTA EPSTEIN MD, Ot J44 .1 CHRONIC OBSTRUCTIVE PULMONARY DISEASE W 09/28/2019 KRISTA EPSTEIN MD, Ot J96.01 ACUTE RESPIRATORY FAILURE WITH HYPOXIA 09/28/2019 KRISTA EPSTEIN MD, Ot K21 .9 GASTRO-ESOPHAGEAL REFLUX DISEASE WITHOUT 09/28/2019 KRISTA EPSTEIN MD Ot L03.116 CELLULITIS OF LEFT LOWER LIMB 09/28/2019 KRISTA EPSTEIN MD, Ot L40 .9 PSORIASIS, UNSPECIFIED 09/28/2019 KRISTA EPSTEIN MD, Ot M06 .9 RHEUMATOID ARTHRITIS, UNSPECIFIED 09/28/2019 KRISTA EPSTEIN MD, Ot N17 .9 ACUTE KIDNEY FAILURE, UNSPECIFIED 09/28/2019 KRISTA EPSTEIN MD, Ot N18 .4 CHRONIC KIDNEY DISEASE, STAGE 4 (SEVERE) 09/28/2019 KRISTA EPSTEIN MD, Ot N40 .0 BENIGN PROSTATIC HYPERPLASIA WITHOUT LOW 09/28/2019 KRISTA EPSTEIN MD, Ot R65.20 SEVERE SEPSIS WITHOUT SEPTIC SHOCK 09/28/2019 KRISTA EPSTEIN MD Ot Z66 DO NOT RESUSCITATE 09/28/2019 KRISTA EPSTEIN MD, Ot 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 09/28/2019 KRISTA EPSTEIN MD, Ot Z87.891 PERSONAL HISTORY OF NICOTINE DEPENDENCE 09/28/2019 KRISTA EPSTEIN MD, Ot Z93 .3 COLOSTOMY STATUS 09/28/2019 KRISTA EPSTEIN MD, Ot 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 11/11/2019 ANGIE ARTIS, ZECHARIAH Gonzales Ot R06.00 DYSPNEA, UNSPECIFIED 11/12/2019 ANGIE ARTIS, ZECHARIAH Gonzales Ot R06.00 DYSPNEA, UNSPECIFIED 11/15/2019 ANGIE ARTIS, ZECHARIAH Gonzales Ot R06.00 DYSPNEA, UNSPECIFIED 11/15/2019 ANGIE ARTIS, ZECHARIAH Gonzales Ot R06.00 DYSPNEA, UNSPECIFIED 11/16/2019 ANGIE ARTIS, ZECHARIAH Gonzales Ot I73 .9 PERIPHERAL VASCULAR DISEASE, UNSPECIFIED 11/16/2019 ZECHARIAH ADAMS MD Ot R06.00 DYSPNEA, UNSPECIFIED 11/22/2019 IGNACIA TIMMONS Ot R22.42 LOCALIZED SWELLING, MASS AND LUMP, LEFT 12/03/2019 ANGIE ARTIS, ZECHARIAH Gonzales Ot I73 .9 PERIPHERAL VASCULAR DISEASE, UNSPECIFIED 12/03/2019 ANGIE ARTIS, ZECHARIAH Gonzales Ot R06.00 DYSPNEA, UNSPECIFIED Procedures Code Description [place] D0140 LIMI T ORAL EVAL PROBLM FOCUS 02/15/2014 D0220 INTR AORAL PERIAPICAL FIRST F 02/15/2014 D7140 EXTR ACTION ERUPTED TOOTH/EXR 02/15/2014 D7140 EXTR ACTION ERUPTED TOOTH/EXR 04/06/2014 37818 JOIN T SURVEY SINGLE VIEW 11/07/2015 89140 OFFI CE/OUTPATIENT VISIT NEW 11/07/2015 36507 X-RA Y EXAM OF ELBOW 11/14/2015 65937 OFFI CE/OUTPATIENT VISIT EST 02/20/2016 28973 FIBR IN DEGRADATION, QUANT 02/26/2016 05275 LUNG PERFUSION IMAGING 02/27/2016 A9540 TC 9 9M MAA UP TO 10 MC 02/27/2016 [id number] IN SPECTION OF UPPER INTESTINAL TRACT, EN 11/18/2018 [id number] DI LATION OF 1 COR ART WITH DRUG-ELUT INT 11/19/2018 [id number] ME ASURE OF CARDIAC SAMPL PRESSURE, L H 11/19/2018 [id number] FL UOROSCOPY OF MULT COR ART USING [...] 06/25/18 10:10 CULTURE, URINE, ROUTINE SEE NOTE [facility] Influenza virus A and B antigen detectio n - 07/20/18 09:28 CALL POSITIVES (F1 HELP) CALLED TO NICK AT [phone] [facility] FLU RESULT POSITIVE FOR INFLUENZA B ANT IGEN, NEG FOR A ANTIGEN, BY IA [facility] Complete blood count (CBC) with automate d white blood cell (WBC) differential - 07/20/18 09:49 Blood leukocytes automated count (number/volume) 16.8 10*3/uL 4.3-11.0 Blood erythrocytes automated count (number/volume) 4.41 10*6/uL 4.35-5.85 Venous blood hemoglobin measurement (mass/volume) 12.8 g/dL 13.3-17.7 Blood hematocrit (volume fraction) 40 % 40-54 Automated erythrocyte mean corpuscular volume 91 [ [facility]] 80-99 Automated erythrocyte mean corpuscular h emoglobin (mass per erythrocyte) 29 pg 25-34 Automated erythrocyte mean corpuscular h emoglobin concentration measurement (mass/volume) 32 g/dL 32-36 Automated erythrocyte distribution width ratio 14. 4 % 10.0- 14.5 Automated blood platelet count (count/volume) 194 10*3/uL 130-400 Automated blood platelet mean volume measurement 9.8 [fo_us] 7.4-10.4 Automated blood neutrophils/100 leukocytes 86 % [...] NRG Manual blood lymphocytes/100 leukocytes 7 % [facility] Manual eosinophils/100 leukocytes in nose 1 % [facility] Blood erythrocyte morphology finding identification NORMAL [facility] Comprehensive metabolic panel - 07/20/18 09:49 [...] or plasma urea nitrogen/creatinine mass ratio 20 NR Serum or plasma creatinine measurement w ith calculation of estimated glomerular filtration rate 18 NR Serum or plasma glucose measurement (mass/volume) 233 [...] 09:49 Bacteria identification in wound by culture [id number] NRG FREE TEXT EXTERNAL RML PHONED MRSA REPORT 07/22 11 :36 NRG QUANTITY OF GROWTH FEW NRG FREE TEXT ENTRY 2 RML SENT SENSITIVITY REPORT 06/24 12:05 NRG RML Sensitivity Panel - 07/20/18 [...] OF GROWTH Isolated NRG Bacterial blood culture [id number] NRG FREE TEXT ENTRY 2 ID REPORTED [...] ncentration <= NRG Nitrofurantoin susceptibility test by fl nimum inhibitory concentration <= NRG Amoxicillin and [...] mg/dL 70-110 Automated blood complete blood count (he mogram) panel - 12/15/18 09:05 Blood leukocytes automated [...] ABO+Rh group OP NRG Transfusion band number [id number] NRG Blood group antibody screen NEGATIVE NR [...] mg/dL 70-110 Whole blood hemoglobin and hematocrit [facility] - 12/27/18 17:56 Venous blood hemoglobin measurement [...] - 08/26/19 11:42 Bacterial blood culture NG NRG Bacterial blood culture - 08/26/19 13:30 Bacterial blood culture NG NRG Complete blood count (CBC) with automate [...] culture - 09/13/19 14:09 Bacterial blood culture [facility] Blood lactic acid measurement (moles/vol ume) - 09/13/19 14:20 Blood lactic acid measurement (moles/volume) 1.25 mmol/L 0.50-2.00 Bacterial blood culture - 09/13/19 14:20 Bacterial blood culture NG [facility] Complete blood count (CBC) with automate d [...] 09/20/19 15:15 BNP PT 241.9 pg/mL <100.0 Bacterial blood culture - 09/20/19 15:15 Bacterial blood culture NG [facility] Influenza virus A and B antigen detectio n - 09/20/19 15:30 CALL POSITIVES (F1 HELP) CALLED TO Cory SALAMANCA, AT 1551 [facility] FLU RESULT POSITIVE FOR INFLUENZA B ANT IGEN, NEG FOR A ANTIGEN, BY IA [facility] Bacterial blood culture - 09/20/19 15:30 Bacterial blood culture NG [facility] Complete urinalysis with reflex to cultu re [...] with reflex to culture CULTURE PENDING NRG Bacterial urine culture - 09/20/19 16:23 Bacterial urine culture [id number] NRG COLONY COUNT <10,000 NRG Capillary blood glucose measurement by g [...] i.cardiac measurement (mass/v olume) 0.037 ng/mL <0.028 Capillary blood glucose measurement by g lucometer (mass/volume) - 09/21/19 10:28 Capillary blood glucose measurement by glucometer (mas s/volume) 186 mg/dL 70-110 Capillary blood glucose measurement by g lucometer (mass/volume) - 09/21/19 15:52 Capillary blood glucose measurement by glucometer (mas s/volume) 186 mg/dL 70-110 Vancomycin trough - 09/21/19 19:39 Vancomycin trough 27.0 ug/mL 10.0-20.0 Capillary blood glucose measurement by g lucometer (mass/volume) - 09/21/19 21:33 Capillary blood glucose measurement by glucometer (mas s/volume) 203 mg/dL 70-110 Complete blood count (CBC) with automate d white blood cell (WBC) differential - 09/22/19 04:04 Blood leukocytes automated count (number/volume) 11.3 10*3/uL 4.3-11.0 Blood erythrocytes automated count (number/volume) 3.99 10*6/uL 4.35-5.85 Venous blood hemoglobin measurement (mass/volume) 11.2 g/dL 13.3-17.7 Blood hematocrit (volume fraction) 36 % 40-54 Automated erythrocyte mean corpuscular volume 91 [ foz_us] 80-99 Automated erythrocyte mean corpuscular h emoglobin (mass per erythrocyte) 28 pg 25-34 Automated erythrocyte mean corpuscular h emoglobin concentration measurement (mass/volume) 31 g/dL 32-36 Automated erythrocyte distribution width ratio 16. 2 % 10.0- 14.5 Automated blood platelet count (count/volume) 179 10*3/uL 130-400 Automated blood platelet mean volume measurement 10.2 [foz_us] 7.4-10.4 Automated blood neutrophils/100 leukocytes 87 % 42-75 Automated blood lymphocytes/100 leukocytes 8 % 12-44 Blood monocytes/100 leukocytes 5 % 0-12 Automated blood eosinophils/100 leukocytes 0 % 0-10 Automated blood basophils/100 leukocytes 0 % 0-10 Blood neutrophils automated count (number/volume) 9.8 10*3 1.8-7.8 Blood lymphocytes automated count (number/volume) 0.9 10*3 1.0-4.0 Blood monocytes automated count (number/volume) 0. 5 10*3 0.0-1.0 Automated eosinophil count 0.0 10*3/uL 0 .0-0.3 Automated blood basophil count (count/volume) 0.0 10*3/uL 0.0-0.1 Comprehensive metabolic panel - 09/22/19 04:04 Serum or plasma sodium measurement (moles/volume) 139 mmol/L 135-145 Serum or plasma potassium measurement (moles/volume) 5.5 mmol/L 3.6-5.0 Serum or plasma chloride measurement (moles/volume) 116 mmol/L 98-107 Carbon dioxide 12 mmol/L 21-32 Serum or plasma anion gap determination (moles/volume) 11 mmol/L 5-14 Serum or plasma urea nitrogen measurement (mass/volume ) 60 mg/dL 7-18 Serum or plasma creatinine measurement (mass/volume) 3.00 mg/dL 0.60-1.30 Serum or plasma urea nitrogen/creatinine mass ratio 20 NRG Serum or plasma creatinine measurement w ith calculation of estimated glomerular filtration rate 20 NRG Serum or plasma glucose measurement (mass/volume) 441 mg/dL 70-105 Serum or plasma calcium measurement (mass/volume) 7.9 mg/dL 8.5-10.1 Serum or plasma total bilirubin measurement (mass/volu me) 0.3 mg/dL 0.1-1.0 Serum or plasma alkaline phosphatase [place] surement (enzymatic activity/volume) 113 U/L 40-136 Serum or plasma aspartate aminotransfera se measurement (enzymatic activity/volume) 14 U/L 5-34 Serum or plasma alanine aminotransferase measurement (enzymatic activity/volume) 27 U/L 0-55 Serum or plasma protein measurement (mass/volume) 5.8 g/dL 6.4-8.2 Serum or plasma albumin measurement (mass/volume) 3.0 g/dL 3.2-4.5 CALCIUM CORRECTED 8.7 mg/dL 8.5-10.1 Vancomycin trough - 09/22/19 09:05 Vancomycin trough < ug/mL 10.0-20.0 Complete blood count (CBC) with automate d white blood cell (WBC) differential - 09/23/19 03:42 Blood leukocytes automated count (number/volume) 14.9 10*3/uL 4.3-11.0 Blood erythrocytes automated count (number/volume) 4.13 10*6/uL 4.35-5.85 Venous blood hemoglobin measurement (mass/volume) 11.3 g/dL 13.3-17.7 Blood hematocrit (volume fraction) 38 % 40-54 Automated erythrocyte mean corpuscular volume 91 [ foz_us] 80-99 Automated erythrocyte mean corpuscular h emoglobin (mass per erythrocyte) 27 pg 25-34 Automated erythrocyte mean corpuscular h emoglobin concentration measurement (mass/volume) 30 g/dL 32-36 Automated erythrocyte distribution width ratio 16. 3 % 10.0- 14.5 Automated blood platelet count (count/volume) 200 10*3/uL 130-400 Automated blood platelet mean volume measurement 9.9 [foz_us] 7.4-10.4 Automated blood neutrophils/100 leukocytes 83 % 42-75 Automated blood lymphocytes/100 leukocytes 10 % 12-44 Blood monocytes/100 leukocytes 7 % 0-12 Automated blood eosinophils/100 leukocytes 0 % 0-10 Automated blood basophils/100 leukocytes 0 % 0-10 Blood neutrophils automated count (number/volume) 12.4 10*3 1.8-7.8 Blood lymphocytes automated count (number/volume) 1.4 10*3 1.0-4.0 Blood monocytes automated count (number/volume) 1. 0 10*3 0.0-1.0 Automated eosinophil count 0.1 10*3/uL 0 .0-0.3 Automated blood basophil count (count/volume) 0.1 10*3/uL 0.0-0.1 Comprehensive metabolic panel - 09/23/19 03:42 Serum or plasma sodium measurement (moles/volume) 136 mmol/L 135-145 Serum or plasma potassium measurement (moles/volume) 5.0 mmol/L 3.6-5.0 Serum or plasma chloride measurement (moles/volume) 112 mmol/L 98-107 Carbon dioxide 12 mmol/L 21-32 Serum or plasma anion gap determination (moles/volume) 12 mmol/L 5-14 Serum or plasma urea nitrogen measurement (mass/volume ) 62 mg/dL 7-18 Serum or plasma creatinine measurement (mass/volume) 3.08 mg/dL 0.60-1.30 Serum or plasma urea nitrogen/creatinine mass ratio 20 NRG Serum or plasma creatinine measurement w ith calculation of estimated glomerular filtration rate 19 NRG Serum or plasma glucose measurement (mass/volume) 275 mg/dL 70-105 Serum or plasma calcium measurement (mass/volume) 8.3 mg/dL 8.5-10.1 Serum or plasma total bilirubin measurement (mass/volu me) 0.4 mg/dL 0.1-1.0 Serum or plasma alkaline phosphatase [place] surement (enzymatic activity/volume) 131 U/L 40-136 Serum or plasma aspartate aminotransfera se measurement (enzymatic activity/volume) 12 U/L 5-34 Serum or plasma alanine aminotransferase measurement (enzymatic activity/volume) 22 U/L 0-55 Serum or plasma protein measurement (mass/volume) 6.1 g/dL 6.4-8.2 Serum or plasma albumin measurement (mass/volume) 3.4 g/dL 3.2-4.5 CALCIUM CORRECTED 8.8 mg/dL 8.5-10.1 Manual absolute plasma cell count - 11/11 03:42 Blood monocytes/100 leukocytes 2 % NRG Manual blood segmented neutrophils/100 leukocytes 80 % NRG Blood band neutrophils/100 leukocytes 5 % NRG Manual blood lymphocytes/100 leukocytes 8 % NRG Manual eosinophils/100 leukocytes in nose 0 % NRG Manual blood basophils/100 leukocytes 0 % NRG Blood anisocytosis detection by light microscopy S LIGHT NRG Blood ovalocytes detection by light microscopy [facility] NR Manual blood metamyelocytes/100 leukocytes 3 % NRG Blood poikilocytosis detection by light microscopy SLIGHT NRG Blood dacrocytes detection by light microscopy I [facility] NR Blood schistocytes detection by light microscopy S LIGHT NRG Manual blood myelocytes/100 leukocytes 2 % NRG Capillary blood glucose measurement by g lucometer (mass/volume) - 09/23/19 11:33 Capillary blood glucose measurement by glucometer (mas s/volume) 272 mg/dL 70-110 Capillary blood glucose measurement by g lucometer (mass/volume) - 09/23/19 15:42 Capillary blood glucose measurement by glucometer (mas s/volume) 246 mg/dL 70-110 Capillary blood glucose measurement by g lucometer (mass/volume) - 09/23/19 20:30 Capillary blood glucose measurement by glucometer (mas s/volume) 269 mg/dL 70-110 Comprehensive metabolic panel - 09/24/19 04:30 Serum or plasma sodium measurement (moles/volume) 136 mmol/L 135-145 Serum or plasma potassium measurement (moles/volume) 5.4 mmol/L 3.6-5.0 Serum or plasma chloride measurement (moles/volume) 106 mmol/L 98-107 Carbon dioxide 15 mmol/L 21-32 Serum or plasma anion gap determination (moles/volume) 15 mmol/L 5-14 Serum or plasma urea nitrogen measurement (mass/volume ) 71 mg/dL 7-18 Serum or plasma creatinine measurement (mass/volume) 3.51 mg/dL 0.60-1.30 Serum or plasma urea nitrogen/creatinine mass ratio 20 NRG Serum or plasma creatinine measurement w ith calculation of estimated glomerular filtration rate 17 NRG Serum or plasma glucose measurement (mass/volume) 386 mg/dL 70-105 Serum or plasma calcium measurement (mass/volume) 8.7 mg/dL 8.5-10.1 Serum or plasma total bilirubin measurement (mass/volu me) 0.4 mg/dL 0.1-1.0 Serum or plasma alkaline phosphatase [place] surement (enzymatic activity/volume) 120 U/L 40-136 Serum or plasma aspartate aminotransfera se measurement (enzymatic activity/volume) 9 U/L 5-34 Serum or plasma alanine aminotransferase measurement (enzymatic activity/volume) 22 U/L 0-55 Serum or plasma protein measurement (mass/volume) 6.5 g/dL 6.4-8.2 Serum or plasma albumin measurement (mass/volume) 3.5 g/dL 3.2-4.5 CALCIUM CORRECTED 9.1 mg/dL 8.5-10.1 Complete blood count (CBC) with automate d white blood cell (WBC) differential - 09/24/19 04:30 Blood leukocytes automated count (number/volume) 13.0 10*3/uL 4.3-11.0 Blood erythrocytes automated count (number/volume) 4.35 10*6/uL 4.35-5.85 Venous blood hemoglobin measurement (mass/volume) 12.0 g/dL 13.3-17.7 Blood hematocrit (volume fraction) 39 % 40-54 Automated erythrocyte mean corpuscular volume 91 [ foz_us] 80-99 Automated erythrocyte mean corpuscular h emoglobin (mass per erythrocyte) 28 pg 25-34 Automated erythrocyte mean corpuscular h emoglobin concentration measurement (mass/volume) 31 g/dL 32-36 Automated erythrocyte distribution width ratio 16. 2 % 10.0- 14.5 Automated blood platelet count (count/volume) 201 10*3/uL 130-400 Automated blood platelet mean volume measurement 9.7 [foz_us] 7.4-10.4 Automated blood neutrophils/100 leukocytes 93 % 42-75 Automated blood lymphocytes/100 leukocytes 6 % 12-44 Blood monocytes/100 leukocytes 1 % 0-12 Automated blood eosinophils/100 leukocytes 0 % 0-10 Automated blood basophils/100 leukocytes 1 % 0-10 Blood neutrophils automated count (number/volume) 12.0 10*3 1.8-7.8 Blood lymphocytes automated count (number/volume) 0.8 10*3 1.0-4.0 Blood monocytes automated count (number/volume) 0. 1 10*3 0.0-1.0 Automated eosinophil count 0.0 10*3/uL 0 .0-0.3 Automated blood basophil count (count/volume) 0.1 10*3/uL 0.0-0.1 Serum or plasma phosphate measurement (m ass/volume) - 09/24/19 04:30 Serum or plasma phosphate measurement (mass/volume) 4.4 mg/dL 2.3-4.7 Capillary blood glucose measurement by g lucometer (mass/volume) - 09/24/19 11:11 Capillary blood glucose measurement by glucometer (mas s/volume) 316 mg/dL 70-110 Capillary blood glucose measurement by g lucometer (mass/volume) - 09/24/19 16:13 Capillary blood glucose measurement by glucometer (mas s/volume) 402 mg/dL 70-110 Capillary blood glucose measurement by g lucometer (mass/volume) - 09/24/19 20:16 Capillary blood glucose measurement by glucometer (mas s/volume) 343 mg/dL 70-110 Complete blood count (CBC) with automate d white blood cell (WBC) differential - 09/25/19 03:28 Blood leukocytes automated count (number/volume) 12.7 10*3/uL 4.3-11.0 Blood erythrocytes automated count (number/volume) 3.97 10*6/uL 4.35-5.85 Venous blood hemoglobin measurement (mass/volume) 10.9 g/dL 13.3-17.7 Blood hematocrit (volume fraction) 36 % 40-54 Automated erythrocyte mean corpuscular volume 90 [ foz_us] 80-99 Automated erythrocyte mean corpuscular h emoglobin (mass per erythrocyte) 27 pg 25-34 Automated erythrocyte mean corpuscular h emoglobin concentration measurement (mass/volume) 31 g/dL 32-36 Automated erythrocyte distribution width ratio 16. 1 % 10.0- 14.5 Automated blood platelet count (count/volume) 210 10*3/uL 130-400 Automated blood platelet mean volume measurement 10.3 [foz_us] 7.4-10.4 Automated blood neutrophils/100 leukocytes 90 % 42-75 Automated blood lymphocytes/100 leukocytes 6 % 12-44 Blood monocytes/100 leukocytes 4 % 0-12 Automated blood eosinophils/100 leukocytes 0 % 0-10 Automated blood basophils/100 leukocytes 0 % 0-10 Blood neutrophils automated count (number/volume) 11.4 10*3 1.8-7.8 Blood lymphocytes automated count (number/volume) 0.8 10*3 1.0-4.0 Blood monocytes automated count (number/volume) 0. 5 10*3 0.0-1.0 Automated eosinophil count 0.0 10*3/uL 0 .0-0.3 Automated blood basophil count (count/volume) 0.0 10*3/uL 0.0-0.1 Comprehensive metabolic panel - 09/25/19 03:28 Serum or plasma sodium measurement (moles/volume) 139 mmol/L 135-145 Serum or plasma potassium measurement (moles/volume) 4.4 mmol/L 3.6-5.0 Serum or plasma chloride measurement (moles/volume) 106 mmol/L 98-107 Carbon dioxide 19 mmol/L 21-32 Serum or plasma anion gap determination (moles/volume) 14 mmol/L 5-14 Serum or plasma urea nitrogen measurement (mass/volume ) 73 mg/dL 7-18 Serum or plasma creatinine measurement (mass/volume) 3.08 mg/dL 0.60-1.30 Serum or plasma urea nitrogen/creatinine mass ratio 24 NRG Serum or plasma creatinine measurement w ith calculation of estimated glomerular filtration rate 19 NRG Serum or plasma glucose measurement (mass/volume) 411 mg/dL 70-105 Serum or plasma calcium measurement (mass/volume) 7.7 mg/dL 8.5-10.1 Serum or plasma total bilirubin measurement (mass/volu me) 0.3 mg/dL 0.1-1.0 Serum or plasma alkaline phosphatase [place] surement (enzymatic activity/volume) 120 U/L 40-136 Serum or plasma aspartate aminotransfera se measurement (enzymatic activity/volume) 8 U/L 5-34 Serum or plasma alanine aminotransferase measurement (enzymatic activity/volume) 17 U/L 0-55 Serum or plasma protein measurement (mass/volume) 5.3 g/dL 6.4-8.2 Serum or plasma albumin measurement (mass/volume) 3.0 g/dL 3.2-4.5 CALCIUM CORRECTED 8.5 mg/dL 8.5-10.1 Capillary blood glucose measurement by g lucometer (mass/volume) - 09/25/19 11:24 Capillary blood glucose measurement by glucometer (mas s/volume) 307 mg/dL 70-110 Capillary blood glucose measurement by g lucometer (mass/volume) - 09/25/19 16:54 Capillary blood glucose measurement by glucometer (mas s/volume) 188 mg/dL 70-110 Capillary blood glucose measurement by g lucometer (mass/volume) - 09/25/19 21:27 Capillary blood glucose measurement by glucometer (mas s/volume) 184 mg/dL 70-110 Capillary blood glucose measurement by g lucometer (mass/volume) - 09/26/19 05:21 Capillary blood glucose measurement by glucometer (mas s/volume) 239 mg/dL 70-110 Complete blood count (CBC) with automate d white blood cell (WBC) differential - 09/26/19 05:25 Blood leukocytes automated count (number/volume) 14.9 10*3/uL 4.3-11.0 Blood erythrocytes automated count (number/volume) 3.93 10*6/uL 4.35-5.85 Venous blood hemoglobin measurement (mass/volume) 11.0 g/dL 13.3-17.7 Blood hematocrit (volume fraction) 36 % 40-54 Automated erythrocyte mean corpuscular volume 90 [ foz_us] 80-99 Automated erythrocyte mean corpuscular h emoglobin (mass per erythrocyte) 28 pg 25-34 Automated erythrocyte mean corpuscular h emoglobin concentration measurement (mass/volume) 31 g/dL 32-36 Automated erythrocyte distribution width ratio 16. 1 % 10.0- 14.5 Automated blood platelet count (count/volume) 178 10*3/uL 130-400 Automated blood platelet mean volume measurement 10.3 [foz_us] 7.4-10.4 Automated blood neutrophils/100 leukocytes 86 % 42-75 Automated blood lymphocytes/100 leukocytes 8 % 12-44 Blood monocytes/100 leukocytes 6 % 0-12 Automated blood eosinophils/100 leukocytes 0 % 0-10 Automated blood basophils/100 leukocytes 0 % 0-10 Blood neutrophils automated count (number/volume) 12.8 10*3 1.8-7.8 Blood lymphocytes automated count (number/volume) 1.2 10*3 1.0-4.0 Blood monocytes automated count (number/volume) 0. 9 10*3 0.0-1.0 Automated eosinophil count 0.0 10*3/uL 0 .0-0.3 Automated blood basophil count (count/volume) 0.1 10*3/uL 0.0-0.1 Comprehensive metabolic panel - 09/26/19 05:25 Serum or plasma sodium measurement (moles/volume) 139 mmol/L 135-145 Serum or plasma potassium measurement (moles/volume) 4.5 mmol/L 3.6-5.0 Serum or plasma chloride measurement (moles/volume) 107 mmol/L 98-107 Carbon dioxide 20 mmol/L 21-32 Serum or plasma anion gap determination (moles/volume) 12 mmol/L 5-14 Serum or plasma urea nitrogen measurement (mass/volume ) 78 mg/dL 7-18 Serum or plasma creatinine measurement (mass/volume) 2.76 mg/dL 0.60-1.30 Serum or plasma urea nitrogen/creatinine mass ratio 28 NRG Serum or plasma creatinine measurement w ith calculation of estimated glomerular filtration rate 22 NRG Serum or plasma glucose measurement (mass/volume) 262 mg/dL 70-105 Serum or plasma calcium measurement (mass/volume) 7.6 mg/dL 8.5-10.1 Serum or plasma total bilirubin measurement (mass/volu me) 0.4 mg/dL 0.1-1.0 Serum or plasma alkaline phosphatase kimberli surement (enzymatic activity/volume) 100 U/L 40-136 Serum or plasma aspartate aminotransfera se measurement (enzymatic activity/volume) 16 U/L 5-34 Serum or plasma alanine aminotransferase measurement (enzymatic activity/volume) 18 U/L 0-55 Serum or plasma protein measurement (mass/volume) 5.5 g/dL 6.4-8.2 Serum or plasma albumin measurement (mass/volume) 2.9 g/dL 3.2-4.5 CALCIUM CORRECTED 8.5 mg/dL 8.5-10.1 Serum or plasma phosphate measurement (m ass/volume) - 09/26/19 05:25 Serum or plasma phosphate measurement (mass/volume) 2.8 mg/dL 2.3-4.7 Magnesium - 09/26/19 05:25 Magnesium 1.6 mg/dL 1.6-2.4 Capillary blood glucose measurement by g lucometer (mass/volume) - 09/26/19 10:59 Capillary blood glucose measurement by glucometer (mas s/volume) 194 mg/dL 70-110 Capillary blood glucose measurement by g lucometer (mass/volume) - 09/26/19 16:26 Capillary blood glucose measurement by glucometer (mas s/volume) 102 mg/dL 70-110 Capillary blood glucose measurement by g lucometer (mass/volume) - 09/26/19 20:40 Capillary blood glucose measurement by glucometer (mas s/volume) 72 mg/dL 70-110 Serum or plasma phosphate measurement (m ass/volume) - 09/27/19 03:30 Serum or plasma phosphate measurement (mass/volume) 2.6 mg/dL 2.3-4.7 Magnesium - 09/27/19 03:30 Magnesium 1.6 mg/dL 1.6-2.4 Capillary blood glucose measurement by g lucometer (mass/volume) - 09/27/19 05:31 Capillary blood glucose measurement by glucometer (mas s/volume) 174 mg/dL 70-110 Capillary blood glucose measurement by g lucometer (mass/volume) - 09/27/19 11:03 Capillary blood glucose measurement by glucometer (mas s/volume) 219 mg/dL 70-110 Automated blood complete blood count (he mogram) panel - 09/27/19 12:05 Blood leukocytes automated count (number/volume) 14.7 10*3/uL 4.3-11.0 Blood erythrocytes automated count (number/volume) 4.03 10*6/uL 4.35-5.85 Venous blood hemoglobin measurement (mass/volume) 11.0 g/dL 13.3-17.7 Blood hematocrit (volume fraction) 37 % 40-54 Automated erythrocyte mean corpuscular volume 93 [ foz_us] 80-99 Automated erythrocyte mean corpuscular h emoglobin (mass per erythrocyte) 27 pg 25-34 Automated erythrocyte mean corpuscular h emoglobin concentration measurement (mass/volume) 29 g/dL 32-36 Automated erythrocyte distribution width ratio 16. 4 % 10.0- 14.5 Automated blood platelet count (count/volume) 202 10*3/uL 130-400 Automated blood platelet mean volume measurement 9.9 [foz_us] 7.4-10.4 Comprehensive metabolic panel - 09/27/19 12:05 Serum or plasma sodium measurement (moles/volume) 142 mmol/L 135-145 Serum or plasma potassium measurement (moles/volume) 4.1 mmol/L 3.6-5.0 Serum or plasma chloride measurement (moles/volume) 109 mmol/L 98-107 Carbon dioxide 23 mmol/L 21-32 [...] NRG Serum or plasma glucose measurement (mass/volume) 203 mg/dL 70-105 Serum or plasma calcium measurement (mass/volume) 7.7 mg/dL 8.5-10.1 Serum or plasma total bilirubin measurement (mass/volu me) 0.5 mg/dL 0.1-1.0 Serum or plasma alkaline phosphatase kimberli surement (enzymatic activity/volume) 108 U/L 40-136 Serum or plasma aspartate aminotransfera se measurement (enzymatic activity/volume) 20 U/L 5-34 Serum or plasma alanine aminotransferase measurement (enzymatic activity/volume) 22 U/L 0-55 Serum or plasma protein measurement (mass/volume) 5.4 g/dL 6.4-8.2 Serum or plasma albumin measurement (mass/volume) 3.1 g/dL 3.2-4.5 CALCIUM CORRECTED 8.4 mg/dL 8.5-10.1 Serum or plasma phosphate measurement (m ass/volume) - 09/27/19 12:05 Serum or plasma phosphate measurement (mass/volume) 2.4 mg/dL 2.3-4.7 Magnesium - 09/27/19 12:05 Magnesium 1.6 mg/dL 1.6-2.4 Serum or plasma lithium measurement (mol es/volume) - 09/27/19 12:05 BNP PT 239.8 pg/mL <100.0 Capillary blood glucose measurement by g lucometer (mass/volume) - 09/27/19 16:12 Capillary blood glucose measurement by glucometer (mas s/volume) 84 mg/dL 70-110 Capillary blood glucose measurement by g lucometer (mass/volume) - 09/27/19 20:05 Capillary blood glucose measurement by glucometer (mas s/volume) 198 mg/dL 70-110 Automated blood complete blood count (he mogram) panel - 09/28/19 05:00 Blood leukocytes automated count (number/volume) 15.4 10*3/uL 4.3-11.0 Blood erythrocytes automated count (number/volume) [...] 10.0- 14.5 Automated blood platelet count (count/volume) 206 10*3/uL 130-400 Automated blood platelet mean volume measurement 10.1 [foz_us] 7.4-10.4 Whole blood basic metabolic panel - 04/10 05:00 Serum or plasma sodium measurement (moles/volume) 142 mmol/L 135-145 Serum or plasma potassium measurement (moles/volume) 5.0 mmol/L 3.6-5.0 Serum or plasma chloride measurement (moles/volume) 110 mmol/L 98-107 Carbon dioxide 22 mmol/L 21-32 [...] NRG Serum or plasma glucose measurement (mass/volume) 180 mg/dL 70-105 Serum or plasma calcium measurement (mass/volume) 8.1 mg/dL 8.5-10.1 Serum or plasma phosphate measurement (m ass/volume) - 09/28/19 05:00 Serum or plasma phosphate measurement (mass/volume) 2.5 mg/dL 2.3-4.7 Magnesium - 09/28/19 05:00 Magnesium 1.7 mg/dL 1.6-2.4 Automated blood complete blood count (he mogram) panel - 11/12/19 08:22 Blood leukocytes automated count (number/volume) 14.1 10*3/uL 4.3-11.0 Blood erythrocytes automated count (number/volume) 4.31 10*6/uL 4.35-5.85 Venous blood hemoglobin measurement (mass/volume) 12.3 g/dL 13.3-17.7 Blood hematocrit (volume fraction) 39 % 40-54 Automated erythrocyte mean corpuscular volume 91 [ foz_us] 80-99 Automated erythrocyte mean corpuscular h emoglobin (mass per erythrocyte) 29 pg 25-34 Automated erythrocyte mean corpuscular h emoglobin concentration measurement (mass/volume) 31 g/dL 32-36 Automated erythrocyte distribution width ratio 16. 4 % 10.0- 14.5 Automated blood platelet count (count/volume) 198 10*3/uL 130-400 Automated blood platelet mean volume measurement 10.1 [foz_us] 7.4-10.4 Complete blood count (CBC) with automate d white blood cell (WBC) differential - 12/03/19 04:35 Blood leukocytes automated count (number/volume) 14.4 10*3/uL 4.3-11.0 Blood erythrocytes automated count (number/volume) 3.85 10*6/uL 4.35-5.85 Venous blood hemoglobin measurement (mass/volume) 11.3 g/dL 13.3-17.7 Blood hematocrit (volume fraction) 36 % 40-54 Automated erythrocyte mean corpuscular volume 92 [ [facility]_us] 80-99 Automated erythrocyte mean corpuscular h emoglobin (mass per erythrocyte) 29 pg 25-34 Automated erythrocyte mean corpuscular h emoglobin concentration measurement (mass/volume) 32 g/dL 32-36 Automated erythrocyte distribution width ratio 17. 3 % 10.0- 14.5 Automated blood platelet count (count/volume) 255 10*3/uL 130-400 Automated blood platelet mean volume measurement 9.8 [[facility]_us] 7.4-10.4 Automated blood neutrophils/100 leukocytes 76 % 42-75 Automated blood lymphocytes/100 leukocytes 16 % 12-44 Blood monocytes/100 leukocytes 8 % 0-12 Automated blood eosinophils/100 leukocytes 0 % 0-10 Automated blood basophils/100 leukocytes 1 % 0-10 Blood neutrophils automated count (number/volume) 10.9 10*3 1.8-7.8 Blood lymphocytes automated count (number/volume) 2.2 10*3 1.0-4.0 Blood monocytes automated count (number/volume) 1. 1 10*3 0.0-1.0 Automated eosinophil count 0.0 10*3/uL 0 .0-0.3 Automated blood basophil count (count/volume) 0.1 10*3/uL 0.0-0.1 PT panel in platelet poor plasma by coag ulation assay - 12/03/19 04:35 Prothrombin time (PT) in platelet poor plasma by coagu lation assay 13.2 s 12.2-14.7 INR in platelet poor plasma or blood by coagulation as say 1.0 0.8-1.4 Activated partial thromboplastin time (a PTT) in platelet poor plasma bycoagulation assay - 12/03/19 04:35 Activated partial thromboplastin time (a PTT) in platelet poor plasma bycoagulation assay 26 s 24-35 Manual absolute plasma cell count - 11/20 12/09 04:35 Blood monocytes/100 leukocytes 9 % NRG Manual blood segmented neutrophils/100 leukocytes 72 % NRG Blood band neutrophils/100 leukocytes 1 % NRG Manual blood lymphocytes/100 leukocytes 17 % NRG Manual eosinophils/100 leukocytes in nose 1 % NRG Blood macrocytes detection by light microscopy SLI T NRG Blood hypochromia detection by light microscopy [facility] Comprehensive metabolic panel - 12/03/19 04:35 Serum or plasma sodium measurement (moles/volume) 135 mmol/L 135-145 Serum or plasma potassium measurement (moles/volume) 5.6 mmol/L 3.6-5.0 Serum or plasma chloride measurement (moles/volume) 99 mmol/L 98-107 Carbon dioxide 20 mmol/L 21-32 Serum or plasma anion gap determination (moles/volume) 16 mmol/L 5-14 Serum or plasma urea nitrogen measurement (mass/volume ) 74 mg/dL 7-18 Serum or plasma creatinine measurement (mass/volume) 3.58 mg/dL 0.60-1.30 Serum or plasma urea nitrogen/creatinine mass ratio 21 NRG Serum or plasma creatinine measurement w ith calculation of estimated glomerular filtration rate 16 NRG Serum or plasma glucose measurement (mass/volume) 402 mg/dL 70-105 Serum or plasma calcium measurement (mass/volume) 8.7 mg/dL 8.5-10.1 Serum or plasma total bilirubin measurement (mass/volu me) 0.7 mg/dL 0.1-1.0 Serum or plasma alkaline phosphatase kimberli surement (enzymatic activity/volume) 137 U/L 40-136 Serum or plasma aspartate aminotransfera se measurement (enzymatic activity/volume) 20 U/L 5-34 Serum or plasma alanine aminotransferase measurement (enzymatic activity/volume) 13 U/L 0-55 Serum or plasma protein measurement (mass/volume) 6.8 g/dL 6.4-8.2 Serum or plasma albumin measurement (mass/volume) 3.6 g/dL 3.2-4.5 CALCIUM CORRECTED 9.0 mg/dL 8.5-10.1 Capillary blood glucose measurement by g lucometer (mass/volume) - 12/03/19 06:29 Capillary blood glucose measurement by glucometer (mas s/volume) 269 mg/dL 70-110 Whole blood basic metabolic panel - 11/20 12/09 06:44 Serum or plasma sodium measurement (moles/volume) 134 mmol/L 135-145 Serum or plasma potassium measurement (moles/volume) 5.1 mmol/L 3.6-5.0 Serum or plasma chloride measurement (moles/volume) 99 mmol/L 98-107 Carbon dioxide 19 mmol/L 21-32 Serum or plasma anion gap determination (moles/volume) 16 mmol/L 5-14 Serum or plasma urea nitrogen measurement (mass/volume ) 76 mg/dL 7-18 Serum or plasma creatinine measurement (mass/volume) 3.38 mg/dL 0.60-1.30 Serum or plasma urea nitrogen/creatinine mass ratio 22 NRG Serum or plasma creatinine measurement w ith calculation of estimated glomerular filtration rate 17 NRG Serum or plasma glucose measurement (mass/volume) 251 mg/dL 70-105 Serum or plasma calcium measurement (mass/volume) 8.9 mg/dL 8.5-10.1 Encounters ACCT No. Visit Date/Time Discharge Status Pt. Type Provider Facility Loc./Unit Complaint [id number] 02/27/2016 10:28:00 02/27/2016 10:28 :00 DIS Outpatient LAURYN VILLANUEVA [facility] [id number] 02/26/2016 09:52:00 02/26/2016 09:52 :00 DIS Outpatient LAURYN VILLANUEVA [facility] [id number] 11/14/2015 13:28:00 11/14/2015 13:28 :00 DIS Outpatient JR BRICEÑO [facility] [id number] 08/21/2015 00:00:00 Document Registration [id number] 08/03/2018 15:21:58 08/03/2018 23:59: 59 CLS Outpatient Es Hidalgo [id number] 05/18/2018 10:38:13 05/18/2018 23:59: 59 CLS Outpatient Tiago Burroughs [id number] 01/19/2018 11:54:59 01/19/2018 23:59: 59 CLS Outpatient Tiago Burroughs [id number] 01/05/2018 16:50:26 01/05/2018 23:59: 59 CLS Outpatient Tiago Burroughs [id number] 09/26/2016 10:13:33 09/26/2016 23:59: 59 CLS Outpatient Juan, Akil S [id number] 10/24/2014 14:30:41 10/24/2014 23:59: 59 CLS Outpatient Juan, V S [id number] 10/10/2014 13:59:32 10/10/2014 23:59: 59 CLS Outpatient Juan, V S [id number] 04/06/2014 09:21:00 04/06/2014 23:59: 59 CLS Outpatient GABE DDMARILIA Guerrero [id number] 02/15/2014 15:07:00 02/15/2014 23:59: 59 CLS Outpatient GABE MARILIA LAZARO [facility] 03/14/2018 11:27:10 ACT Document Registration [id number] 03/03/2018 03:31:57 8 23:59:59 DIS Outpatient TRACEE CAMPOS [facility] [id number] 03/01/2018 09:54:36 8 23:59:59 CLS Preadmit SIMON IRENE [facility] MS ACUTE ONCRONIC RENAL FAILURE [id number] 02/28/2018 20:14:00 8 23:59:59 DIS Outpatient TRACEE CAMPOS [facility] [id number] 02/23/2018 16:21:22 8 23:59:59 CLS Preadmit SIMON IRENE [facility] RAD elevated bmp [id number] 02/23/2018 11:53:42 8 23:59:59 DIS Outpatient SIMON IRENE [facility] LAB [id number] 09/29/2017 12:57:00 8 23:59:59 DIS Outpatient LAURYN VILLANUEVA [facility] LAB [id number] 04/08/2017 08:22:18 7 23:59:59 DIS Outpatient SIOMN IRENE [facility] KIRAN RAD heart failure [id number] 11/18/2016 11:03:32 7 23:59:59 CLS Preadmit [facility] KIRAN PT Weakness S/P Pneumonia [id number] 02/28/2018 21:05:00 ACT SIMON ZHENG [facility] dical [place] KIRAN OBS ed visit [id number] 02/10/2017 02:02:24 Document Registration [id number] 01/27/2017 02:00:34 Document Registration [id number] 01/13/2017 02:01:35 Document Registration [id number] 11/06/2016 14:57:02 Document Registration [id number] 11/05/2016 03:08:00 ACT ZECHARIAH MEZA [facility] edical [place] KIRAN OBS sick [id number] 12/03/2019 04:25:00 08:40:00 DIS Emergency ENRIQUETA ANDERSON DO [facility] ER NOSE BLEED [id number] 11/18/2019 11:42:00 23:59:59 CLS Outpatient IGNACIA TIMMONS [facility] RAD KNOTS OF LEFT LOWER EX TREMITY W/ PAIN [id number] 11/12/2019 08:10:00 23:59:59 CLS Outpatient ANGIE ARTIS, ZECHARIAH Gonzales [facility] RAD PERIPHERAL VASCULAR DIS EASE [id number] 09/20/2019 18:00:00 14:15:00 DIS Outpatient LUCIAN ARTIS, KRISTA Duke [facility] 4TH INFLUENZA,HYPOXIA,ELEVA KODY TROPONIN,HYPOKALEMIA [id number] 09/13/2019 12:48:00 16:39:00 DIS Emergency ANGELA LU APRN [facility] ER L KNEE PAIN [id number] 08/26/2019 14:22:00 11:43:00 DIS Inpatient JACKELINE CEE DO, V [facility] 4TH LLE CELLULITIS,CHRONIC RENAL FAILURE [id number] 06/25/2019 09:56:00 23:59:59 CLS Outpatient AUBREY IGNACIA ARTIS [facility] WOUNDCARE [id number] 06/18/2019 09:25:00 23:59:59 CLS Outpatient IGNACIA BURGOS MD [facility] WOUNDCARE [id number] 06/11/2019 09:25:00 23:59:59 CLS Outpatient IGNACIA BURGOS MD [facility] WOUNDCARE [id number] 06/04/2019 08:06:00 23:59:59 CLS Outpatient IGNACIA BURGOS MD [facility] WOUNDCARE [id number] 04/25/2019 16:55:00 13:30:00 DIS Inpatient DORA ARTIS, CHRISTIAN Dickinson [facility] 4TH DYSPNEA,VOLUME DEPLETIO N [id number] 02/21/2019 11:37:00 13:53:00 DIS Emergency KEANU ESPINOZA [facility] ER AMS [id number] 01/05/2019 07:36:00 14:39:00 DIS Emergency MARILEE PRIDE MD [facility] ER FALL [id number] 12/26/2018 18:26:00 12:37:00 DIS Inpatient BRIANNA ARTIS, ANGELIKA Iraheta [facility] 4TH SEPSIS,DIVERTICULITIS,L OWER GI BLEED,ANEMIA [id number] 12/20/2018 07:15:00 09:44:00 DIS Emergency AQUILES LAWTON MD [facility] ER BLOOD IN STOOL [id number] 12/15/2018 13:02:00 15:00:00 DIS Inpatient DIPIKA PACK MD [facility] 4TH INFLUENZA B,DYSPNEA [id number] 11/25/2018 14:49:00 18:00:00 DIS Emergency MARILEE PRIDE MD [facility] ER SOB [id number] 11/20/2018 13:32:00 14:00:00 DIS Inpatient CEE DO, JACKELINE V [facility] 4TH POSSIBLE ESOPHAGEAL OBS TRUCTION [id number] 07/20/2018 11:59:00 12:25:00 DIS Inpatient JACKELINE CEE DO, V [facility] 4TH INFLUENZA B,SEPSIS,R AR M ABSCESS,A- FIB,RENAL - [id number] 04/10/2018 10:55:00 23:59:59 CLS Outpatient ANGIE ARTIS, ZECHARIAH Gonzales [facility] [id number] 03/31/2018 21:30:00 14:25:00 DIS Inpatient LUCIAN ARTIS, KRISTA [facility] 4TH CHEST PAIN [id number] 08/11/2018 08:04:59 ACT Unknown Anna ARTIS, Simon [id number] 02/20/2016 16:15:00 Document Registration [id number] 11/07/2015 13:30:00 Document Registration [id number] 09/14/2019 08:20:00 09/14/2019 23:59:5 9 CLS Outpatient IGNACIA TIMMONS APRN [facility] [id number] 07/14/2019 08:40:00 Document Registration [id number] 04/19/2019 16:40:00 Document Registration [id number] 06/25/2018 09:00:00 Document Registration
[2019-12-07] MEDS ORDERED: BUME2TAB7 PO (22:42)
[2019-12-07] MEDS ORDERED: GABA-488 PO (22:42)
[2019-12-07] MEDS ORDERED: DM H1CAP5 PO (22:42)
[2019-12-07] MEDS ORDERED: DULA1.5P2 SQ (22:42)
[2019-12-07] MEDS ORDERED: ERGO2000 PO (22:42)
[2019-12-07] MEDS ORDERED: SODI650T PO (22:42)
[2019-12-07] MEDS ORDERED: ONDN4T PO (22:42)
[2019-12-07] MEDS ORDERED: CLOP75TA28 PO (22:42)
[2019-12-07] MEDS ORDERED: HYDR-4226 PO (22:42)
[2019-12-07] MEDS ORDERED: ACET325T49 PO (22:42)
[2019-12-07] MEDS ORDERED: RT-ALBUINH IH (23:23)
[2019-12-07] MEDS ORDERED: CALC-1072 PO (23:23)
[2019-12-07] MEDS ORDERED: GUAI100L13 PO (23:23)
[2019-12-07] MEDS ORDERED: SODI14.13 TP (23:23)
[2019-12-07] MEDS ORDERED: ALBU0.63 IH (23:23)
[2019-12-07] MEDS ORDERED: OXYM30SP25 NS (23:35)
[2019-12-08] MEDS ORDERED: GUAI600T43 PO (08:09)
[2019-12-08] MEDS ORDERED: ASPI-983 PO (08:09)
[2019-12-08] MEDS ORDERED: METO50TA7 PO (08:09)
[2019-12-08] MEDS ORDERED: SODI104S3 NSEACH (08:09)
== END 2019-12-03 08:40 ==
LOC: EDUNIT# 04:23 → ER 04:25
DX: R04.0 Epistaxis (principal); I48.20 Chronic atrial fibrillation, unspecified; I12.0 Hypertensive chronic kidney disease with stage 5 chronic kidney disease or end stage renal disease; E11.22 Type 2 diabetes mellitus with diabetic chronic kidney disease; N18.6 End stage renal disease; E87.5 Hyperkalemia; I25.10 Atherosclerotic heart disease of native coronary artery without angina pectoris; K21.9 Gastro-esophageal reflux disease without esophagitis; F32.9 Major depressive disorder, single episode, unspecified; Z79.01 Long term (current) use of anticoagulants; Z79.82 Long term (current) use of aspirin; Z79.02 Long term (current) use of antithrombotics/antiplatelets; Z79.4 Long term (current) use of insulin; Z87.891 Personal history of nicotine dependence; Z80.0 Family history of malignant neoplasm of digestive organs; Z82.49 Family history of ischemic heart disease and other diseases of the circulatory system
CPT/HCPCS: 36415; 80048; 80053; 82962; 85007; 85027; 85610; 85730; 93041